=== PATIENT | female | born 1950 | race Caucasian/White ===

== ENCOUNTER → 2017-05-24 15:40 | Outpatient (CLI) | payer MEDICARE, SELFPAY ==
[2017-05-24 17:28] LABS: Absolute Lymphocyte Count 2.15 X10^3/ul (0.83-4.51); Absolute Neutrophil Count 1.6 X10^3/uL (2.0-7.7); Basophil# 0.04 X10^3/uL; Eosinophil# 0.07 X10^3/uL; Eosinophils% 1.7 % (0-5); Hematocrit 36.7 % (37-47); Hemoglobin 11.9 g/dl (12.0-15.0); Lymphocyte # 2.15 X10^3/ul (4.0); Lymphocyte % 51.2 % (19-41); Mean Corp Hgb Conc 32.4 g/gl (32-36); Mean Corpuscular Hgb 31.1 pg (27.0-32.0); Mean Corpuscular Volume 95.8 fL (81-99); Mean Platelet Vol. 10.3 fl (6.2-12.0); Monocyte# 0.37 X10^3/uL; Monocyte% 8.8 % (0-10); Neutrophil # 1.57 X10^3/uL (2.7-7.7); Neutrophil % 37.3 % (47-70); Platelet Count 279 K/mm3 (150-450); RBC Distribution Width CV 13.5 % (11.6-14.6); RBC Distribution Width SD 47.1 fl (35.1-43.9); Red Blood Count 3.83 M/mm3 (4.2-5.4); White Blood Count 4.2 K/mm3 (4.4-11.0)
[2017-05-24 17:44] LABS: POSITIVE COUNT NO; POSITIVE DIFFERENTIAL NO; POSITIVE MORPHOLOGY NO
[2017-05-24 18:11] LABS: ALB/GLOB Ratio 1.1 RATIO (0.9-2.4); AST(SGOT) 19 U/L (15-37); Alanine Aminotransfer ALT/SGPT 19 U/L (13-56); Albumin, Serum 3.5 g/dL (3.2-5.0); Alkaline Phosphatase 81 U/L (45-117); Anion Gap 9 (5-15); BUN 11 mg/dL (7-18); BUN/Creat Ratio 10.9 RATIO (10-20); Calcium,Total 8.1 mg/dL (8.5-10.1); Chloride 108 mmol/L (98-107); Creatinine, Serum 1.01 mg/dL (0.55-1.02); EST Glomerular Filtration Rate 58 mL/min (>60); Est Glom Filt Rate - Afr Amer 70 mL/min (>60); Globulin 3.2 g/dL (2.2-4.2); Glucose 87 mg/dL (74-106); Potassium 3.9 mmol/L (3.5-5.1); Protein, Total 6.7 g/dL (6.4-8.2); Sodium Level 140 mmol/L (136-145); Thyroid Stim Hormone (TSH) 0.77 uIU/mL (0.358-3.74)
[2017-05-26 11:12] LABS: Hep C Antibodies <0.1 s/co ratio (0.0-0.9)
== END ==
PROVIDERS: Family Provider Family Medicine Geriatric Medicine; PCP Family Medicine Geriatric Medicine; Visit Provider Family Medicine Geriatric Medicine
DX: Z13.89 Encounter for screening for other disorder (principal); E55.9 Vitamin D deficiency, unspecified; R53.83 Other fatigue
CPT/HCPCS: 36415; 80053; 84443; 85025; 86803

== ENCOUNTER 2017-07-12 17:24 | Emergency (ER) | payer MEDICARE, SELFPAY ==
[2017-07-12 17:26] VITALS: BP 163/83; PULSE 88; RESP 16; TEMP 36.4; O2SAT 99; BMI 44.9
--- NOTE | 2017-07-12 18:20 | ED.VISSUMM ---
- ER Visit Summary Date of Service: 07/12/17 Chief Complaint: Wound check History of Present Illness: The patient is a 67 F wound check left index finger. 2 days ago cat bite to left index, seen at urgent care started on Flagyl and doxycycline. Has been taking the medicines. States not getting better, also not getting worse. No fevers. States is her home cat. Also complains of her chronic back pain, previous surgery in the past, none recently. No recent falls. States her pain management Dr. Coburn last seen 3-4 months ago was not prescribing opiates. Saw her PCP were written for tramadol. No loss of bowel or bladder control. No other complaints. Physical Examination: General: Alert and oriented ?3, no acute distress HEENT: Normocephalic, atraumatic. Moist mucosa membranes Neck: supple, nontender. Cardiovascular: Regular rate and rhythm, no murmurs Respiratory: Normal breath sounds, symmetric, no distress back: Midline scar lumbar spine. No erythema. Abdomen: Soft, nontender, nondistended Extremities: Left hand: Index finger noted blister at the volar aspect distal phalanx. There is erythema of the distal phalanx up to the DIP. There is no redness proximal to this. There is no streaking. No drainage. Neuro: no focal neurological deficits. Test Results: [] Emergency Department Course and Treatment: Patient vital signs stable. Wound is not worsening there is no active draining. There is no streaking. Discussed with patient continue her current antibiotics. Wound was redressed by nursing. For chronic back pain, she given 1 morphine subcu dose in the ED. She does have a ride home. Discussed with patient she needs to follow-up with her PCP reevaluation further management of her pain as an outpatient. All questions were answered. Treatment Plan: [] Disposition: Discharge Impression: 1. Wound check 2. Chronic back pain This note was generated with [employer] dictation software. It may contain incorrect words, spelling, and punctuation that were not noted in review of the chart prior to signing ED Disposition - Plan for ED Patient: Disposition: Home or Assisted Living Chief Complaint: Wound Diagnosis: Encounter for evaluation of wound, Chronic back pain Instructions: ED Wound Puncture General, ED Chronic Pain Management Referrals: Harish Luis Chi, MD [Primary Care Provider] - 3-5 Days
--- NOTE | 2017-07-12 18:25 | ED.DCSUM_ITS ---
- ER Visit Summary Date of Service: 07/12/17 Chief Complaint: Wound check History of Present Illness: The patient is a 67 F wound check left index finger. 2 days ago cat bite to left index, seen at urgent care started on Flagyl and doxycycline. Has been taking the medicines. States not getting better, also not getting worse. No fevers. States is her home cat. Also complains of her chronic back pain, previous surgery in the past, none recently. No recent falls. States her pain management Dr. Coburn last seen 3- 4 months ago was not prescribing opiates. Saw her PCP were written for tramadol. No loss of bowel or bladder control. No other complaints. Physical Examination: General: Alert and oriented ?3, no acute distress HEENT: Normocephalic, atraumatic. Moist mucosa membranes Neck: supple, nontender. Cardiovascular: Regular rate and rhythm, no murmurs Respiratory: Normal breath sounds, symmetric, no distress back: Midline scar lumbar spine. No erythema. Abdomen: Soft, nontender, nondistended Extremities: Left hand: Index finger noted blister at the volar aspect distal phalanx. There is erythema of the distal phalanx up to the DIP. There is no redness proximal to this. There is no streaking. No drainage. Neuro: no focal neurological deficits. Test Results: [] Emergency Department Course and Treatment: Patient vital signs stable. Wound is not worsening there is no active draining. There is no streaking. Discussed with patient continue her current antibiotics. Wound was redressed by nursing. For chronic back pain, she given 1 morphine subcu dose in the ED. She does have a ride home. Discussed with patient she needs to follow-up with her PCP reevaluation further management of her pain as an outpatient. All questions were answered. Treatment Plan: [] Disposition: Discharge Impression: 1. Wound check 2. Chronic back pain This note was generated with [employer] dictation software. It may contain incorrect words, spelling, and punctuation that were not noted in review of the chart prior to signing ED Disposition - Plan for ED Patient: Disposition: Home or Assisted Living Chief Complaint: Wound Diagnosis: Encounter for evaluation of wound, Chronic back pain Instructions: ED Wound Puncture General, ED Chronic Pain Management Referrals: Harish Luis Chi, MD [Primary Care Provider] - 3-5 Days
[2017-07-12] MEDS: Morphine 4 MG/ML Syringe SC (18:37)
== END 2017-07-12 18:41 | disposition home or self-care (01) ==
PROVIDERS: Emergency Provider Emergency Medicine; Family Provider Family Medicine Geriatric Medicine; PCP Family Medicine Geriatric Medicine
DX: Z48.00 Encounter for change or removal of nonsurgical wound dressing (principal); M54.5 Low back pain; G89.29 Other chronic pain; E78.00 Pure hypercholesterolemia, unspecified; Z79.82 Long term (current) use of aspirin; Z79.899 Other long term (current) drug therapy; Z87.891 Personal history of nicotine dependence
CPT/HCPCS: 96372; 99283

== ENCOUNTER → 2017-07-17 18:17 | Outpatient (CLI) | payer MEDICARE, SELFPAY ==
[2017-07-17 19:48] LABS: M R Staph aureus DNA By PCR Negative (Negative); Probe Check PASS; Specimen Processing Control PASS; Staph aureus DNA By PCR NEGATIVE (Negative)
== END ==
PROVIDERS: Family Provider Family Medicine Geriatric Medicine; PCP Family Medicine Geriatric Medicine; Visit Provider Family Medicine Geriatric Medicine
DX: L03.113 Cellulitis of right upper limb (principal)
CPT/HCPCS: 87070; 87205; 87640

== ENCOUNTER → 2017-11-26 13:14 | Outpatient (CLI) | payer MEDICARE, SELFPAY ==
[2017-11-26 16:17] LABS: Absolute Lymphocyte Count 1.14 X10^3/ul (0.83-4.51); Absolute Neutrophil Count 2.4 X10^3/uL (2.0-7.7); Basophil# 0.04 X10^3/uL; Basophil% 0.9 % (0-1); Eosinophils% 2.3 % (0-5); Hematocrit 37.4 % (37-47); Hemoglobin 12.2 g/dl (12.0-15.0); Lymphocyte # 1.14 X10^3/ul (4.0); Lymphocyte % 26.4 % (19-41); Mean Corp Hgb Conc 32.6 g/gl (32-36); Mean Corpuscular Volume 95.2 fL (81-99); Mean Platelet Vol. 10.1 fl (6.2-12.0); Monocyte# 0.63 X10^3/uL; Monocyte% 14.6 % (0-10); Neutrophil % 55.6 % (47-70); Platelet Count 256 K/mm3 (150-450); RBC Distribution Width CV 13.2 % (11.6-14.6); RBC Distribution Width SD 44.3 fl (35.1-43.9); Red Blood Count 3.93 M/mm3 (4.2-5.4); White Blood Count 4.3 K/mm3 (4.4-11.0)
[2017-11-26 16:18] LABS: POSITIVE COUNT NO; POSITIVE DIFFERENTIAL NO; POSITIVE MORPHOLOGY NO
[2017-11-26 16:40] LABS: Vitamin D,25 Hydroxy 43.6 ng/mL (29.95-100.01)
[2017-11-26 17:03] LABS: AST(SGOT) 15 U/L (15-37); Alanine Aminotransfer ALT/SGPT 17 U/L (13-56); Albumin, Serum 3.4 g/dL (3.2-5.0); Alkaline Phosphatase 85 U/L (45-117); Anion Gap 9 (5-15); BUN 8 mg/dL (7-18); BUN/Creat Ratio 8.5 RATIO (10-20); Calcium,Total 8.6 mg/dL (8.5-10.1); Chloride 110 mmol/L (98-107); Creatinine, Serum 0.94 mg/dL (0.55-1.02); EST Glomerular Filtration Rate 63 mL/min (>60); Est Glom Filt Rate - Afr Amer 76 mL/min (>60); Globulin 3.3 g/dL (2.2-4.2); Glucose 115 mg/dL (74-106); Potassium 3.3 mmol/L (3.5-5.1); Protein, Total 6.7 g/dL (6.4-8.2); Sodium Level 144 mmol/L (136-145); Thyroid Stim Hormone (TSH) 0.52 uIU/mL (0.358-3.74)
== END ==
PROVIDERS: Family Provider Family Medicine Geriatric Medicine; PCP Family Medicine Geriatric Medicine; Visit Provider Family Medicine Geriatric Medicine
DX: E55.9 Vitamin D deficiency, unspecified (principal); R53.83 Other fatigue; R50.9 Fever, unspecified
CPT/HCPCS: 36415; 80053; 82306; 84443; 85025; 87633

== ENCOUNTER → 2017-12-17 14:08 | Outpatient (CLI) | payer MEDICARE, SELFPAY ==
[2017-12-17 17:47] LABS: Anion Gap 7 (5-15); BUN 15 mg/dL (7-18); BUN/Creat Ratio 13.4 RATIO (10-20); Calcium,Total 8.2 mg/dL (8.5-10.1); Chloride 105 mmol/L (98-107); Creatinine, Serum 1.12 mg/dL (0.55-1.02); EST Glomerular Filtration Rate 52 mL/min (>60); Est Glom Filt Rate - Afr Amer 62 mL/min (>60); Glucose 85 mg/dL (74-106); Potassium 3.7 mmol/L (3.5-5.1); Sodium Level 139 mmol/L (136-145)
== END ==
PROVIDERS: Family Provider Family Medicine Geriatric Medicine; PCP Family Medicine Geriatric Medicine; Visit Provider Family Medicine Geriatric Medicine
DX: E87.6 Hypokalemia (principal)
CPT/HCPCS: 36415; 80048

== ENCOUNTER → 2018-06-18 14:16 | Outpatient (CLI) | payer MEDICARE, SELFPAY ==
[2018-06-18 15:41] LABS: Absolute Lymphocyte Count 2.28 X10^3/ul (0.83-4.51); Absolute Neutrophil Count 3.4 X10^3/uL (2.0-7.7); Basophil# 0.05 X10^3/uL; Basophil% 0.8 % (0-1); Eosinophil# 0.08 X10^3/uL; Eosinophils% 1.3 % (0-5); Hematocrit 36.8 % (37-47); Hemoglobin 11.9 g/dl (12.0-15.0); Lymphocyte # 2.28 X10^3/ul (4.0); Lymphocyte % 36.7 % (19-41); Mean Corp Hgb Conc 32.3 g/gl (32-36); Mean Corpuscular Hgb 30.4 pg (27.0-32.0); Mean Corpuscular Volume 93.9 fL (81-99); Mean Platelet Vol. 9.5 fl (6.2-12.0); Monocyte# 0.46 X10^3/uL; Monocyte% 7.4 % (0-10); Neutrophil # 3.35 X10^3/uL (2.7-7.7); Neutrophil % 53.8 % (47-70); Platelet Count 394 K/mm3 (150-450); RBC Distribution Width CV 13.2 % (11.6-14.6); RBC Distribution Width SD 43.9 fl (35.1-43.9); Red Blood Count 3.92 M/mm3 (4.2-5.4); White Blood Count 6.2 K/mm3 (4.4-11.0)
[2018-06-18 15:43] LABS: POSITIVE COUNT NO; POSITIVE DIFFERENTIAL NO; POSITIVE MORPHOLOGY NO
[2018-06-18 15:58] LABS: Vitamin D,25 Hydroxy 63.8 ng/mL (29.95-100.01)
[2018-06-18 16:04] LABS: ALB/GLOB Ratio 0.9 RATIO (0.9-2.4); AST(SGOT) 23 U/L (15-37); Alanine Aminotransfer ALT/SGPT 19 U/L (13-56); Albumin, Serum 3.2 g/dL (3.2-5.0); Alkaline Phosphatase 83 U/L (45-117); Anion Gap 5 (5-15); BUN 11 mg/dL (7-18); BUN/Creat Ratio 9.5 RATIO (10-20); Calcium,Total 8.3 mg/dL (8.5-10.1); Chloride 108 mmol/L (98-107); Creatinine, Serum 1.16 mg/dL (0.55-1.02); EST Glomerular Filtration Rate 49 mL/min (>60); Est Glom Filt Rate - Afr Amer 60 mL/min (>60); Globulin 3.7 g/dL (2.2-4.2); Glucose 95 mg/dL (74-106); Potassium 3.6 mmol/L (3.5-5.1); Protein, Total 6.9 g/dL (6.4-8.2); Sodium Level 138 mmol/L (136-145); Thyroid Stim Hormone (TSH) 0.64 uIU/mL (0.358-3.74)
== END ==
PROVIDERS: Family Provider Family Medicine Geriatric Medicine; PCP Family Medicine Geriatric Medicine; Visit Provider Family Medicine Geriatric Medicine
DX: E55.9 Vitamin D deficiency, unspecified (principal); R53.83 Other fatigue
CPT/HCPCS: 36415; 80053; 82306; 84443; 85025

== ENCOUNTER 2018-09-01 18:45 | Emergency (ER) | payer MEDICARE, SELFPAY ==
[2018-07-31 11:09] VITALS: BMI 44.9
[2018-09-01 18:45] VITALS: BP 142/89; PULSE 79; RESP 16; TEMP 37.2; O2SAT 98; BMI 19.5
[2018-09-01 18:59] VITALS: RESP 16
--- NOTE | 2018-09-01 19:04 | ED.VISSUMM ---
- ER Visit Summary Date of Service: 09/01/18 Chief Complaint: Acute on chronic back pain History of Present Illness: The patient is a 68 F. Chronic back pain. Patient states she has back pain every day. Currently is on no pain medications. She is had 2 prior TENS units. Currently the one that she has is no longer working. She seen multiple pain management physicians. She had one prior back surgery and is followed up with brand specialist who tell her she may need another surgery may be a year recovery and she did not want to go through that. Today she had recurrent acute on chronic back pain. No falls. No injuries or trauma. No fever. No abdominal pain or dysuria. No acute injury. No radiation to her arms or legs no weakness or new numbness. Physical Examination: Older female accompanied by her . Vital signs are stable and afebrile. HEENT exam unremarkable. Lungs clear to auscultation. Heart regular rhythm no murmur. Abdomen soft and nontender. No peritoneal signs no pulsatile mass. Extremities moves all 4. Neurovascular intact. Equal symmetrical trial consultant strength. Dorsi plantarflexion intact. No cauda equina. No saddle anesthesia. Normal medial thigh sensation. Back exam she has a well-healed prior lumbar vertical incision. It is well-healed. There is currently no signs of redness or warmth. No trauma. She has tenderness over her lumbar spine. There is diffuse. Neurologically she is awake and alert. With no weakness or numbness. Test Results: None Emergency Department Course and Treatment: Patient has acute on chronic back pain. This is not new or particularly different she has had flares from time to time. She will be given IM injection of morphine and p.o. Zofran. Awaiting a very short prescription for 10 [place]. She can follow-up with her primary care physician. Treatment Plan: [facility] [place] for pain. Follow-up with her PCP. Disposition: Discharge Impression: Acute on chronic back pain status post lumbar surgery History of chronic back pain with degenerative disc disease and arthritis This note was generated with [employer] software. It may contain incorrect words, spelling, and punctuation that were not noted in review of the chart prior to signing ED Disposition - Plan for ED Patient: Referrals: Harish Luis Chi, MD [Primary Care Provider] -
--- NOTE | 2018-09-01 19:07 | ED.DCSUM_ITS ---
- ER Visit Summary Date of Service: 09/01/18 Chief Complaint: Acute on chronic back pain History of Present Illness: The patient is a 68 F. Chronic back pain. Patient states she has back pain every day. Currently is on no pain medications. She is had 2 prior TENS units. Currently the one that she has is no longer working. She seen multiple pain management physicians. She had one prior back surgery and is followed up with campaign management specialist who tell her she may need another surgery may be a year recovery and she did not want to go through that. Today she had recurrent acute on chronic back pain. No falls. No injuries or trauma. No fever. No abdominal pain or dysuria. No acute injury. No radiation to her arms or legs no weakness or new numbness. Physical Examination: Older female accompanied by her . Vital signs are stable and afebrile. HEENT exam unremarkable. Lungs clear to auscultation. Heart regular rhythm no murmur. Abdomen soft and nontender. No peritoneal signs no pulsatile mass. Extremities moves all 4. Neurovascular intact. 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 Dorsi plantarflexion intact. No cauda equina. No saddle anesthesia. Normal medial thigh sensation. Back exam she has a well- healed prior lumbar vertical incision. It is well-healed. There is currently no signs of redness or warmth. No trauma. She has tenderness over her lumbar spine. There is diffuse. Neurologically she is awake and alert. With no weakness or numbness. Test Results: None Emergency Department Course and Treatment: Patient has acute on chronic back pain. This is not new or particularly different she has had flares from time to time. She will be given IM injection of morphine and p.o. Zofran. Awaiting a very short prescription for 10 [place]. She can follow-up with her primary care physician. Treatment Plan: [place] for pain. Follow-up with her PCP. Disposition: Discharge Impression: Acute on chronic back pain status post lumbar surgery History of chronic back pain with degenerative disc disease and arthritis This note was generated with [employer] software. It may contain incorrect words, spelling, and punctuation that were not noted in review of the chart prior to signing ED Disposition - Plan for ED Patient: Referrals: Harish Luis Chi, MD [Primary Care Provider] -
--- NOTE | 2018-09-01 19:07 | ED.DEP ---
ED Disposition - Plan for ED Patient: Disposition: Against Medical Advice Instructions: ED Neck Back Pain General Prescriptions: Hydrocodone Bitart/Apap 5-325 [[place] 5MG-325MG] 1 - 2 tab PO Q4H PRN PRN 3 Days #10 tab PRN Reason: Pain Referrals: Harish Luis Chi, MD [Primary Care Provider] - As soon as possible Additional Instructions: [place] for pain. Follow-up with Dr. Luis or operations specialist.
--- NOTE | 2018-09-01 19:10 | DCINST.ED_ITS ---
ED Disposition - Plan for ED Patient: Disposition: Against Medical Advice Instructions: ED Neck Back Pain General Prescriptions: Hydrocodone Bitart/Apap 5-325 [[place] 5MG-325MG] 1 - 2 tab PO Q4H PRN PRN 3 Days #10 tab PRN Reason: Pain Referrals: Harish Luis Chi, MD [Primary Care Provider] - As soon as possible Additional Instructions: [place] for pain. Follow-up with Dr. Luis or leasing specialist.
[2018-09-01] MEDS: morphine 8 MG/ML Syringe IM (19:11)
[2018-09-01] MEDS: Ondansetron 8 MG Tablet PO (19:11)
[2018-09-01 19:22] VITALS: BP 129/87; PULSE 67; RESP 16; O2SAT 97
[2018-09-01] MEDS: HYDROcodone Bitartrate/Apap 5/325 Tablet PO (19:36)
== END 2018-09-01 19:37 | disposition home or self-care (01) ==
PROVIDERS: Emergency Provider Emergency Medicine; Family Provider Family Medicine Geriatric Medicine; PCP Family Medicine Geriatric Medicine
DX: M51.36 Other intervertebral disc degeneration, lumbar region (principal); G89.29 Other chronic pain; I10 Essential (primary) hypertension; Z79.82 Long term (current) use of aspirin; Z79.899 Other long term (current) drug therapy; Z72.0 Tobacco use
CPT/HCPCS: 96372; 99283

== ENCOUNTER → 2018-11-26 13:12 | Outpatient (CLI) | payer MEDICARE, SELFPAY ==
[2018-11-26 17:17] LABS: Absolute Lymphocyte Count 1.38 X10^3/uL (0.83-4.51); Absolute Neutrophil Count 1.5 X10^3/uL (2.0-7.7); Basophil# 0.04 X10^3/uL; Basophil% 1.2 % (0-1); Eosinophil# 0.05 X10^3/uL; Eosinophils% 1.5 % (0-5); Hemoglobin 12.2 g/dL (12.0-15.0); Lymphocyte # 1.38 X10^3/ul (4.0); Lymphocyte % 41.6 % (19-41); Mean Corpuscular Hgb 31.9 pg (27.0-32.0); Mean Corpuscular Volume 96.6 fL (81-99); Mean Platelet Vol. 10.3 fl (6.2-12.0); NRBC Flagged by Analyzer 0 % (0-5); Neutrophil # 1.54 X10^3/uL (2.7-7.7); Neutrophil % 46.4 % (47-70); Platelet Count 269 K/mm3 (150-450); RBC Distribution Width CV 13.2 % (11.6-14.6); RBC Distribution Width SD 46.8 fl (35.1-43.9); Red Blood Count 3.83 M/mm3 (4.2-5.4); White Blood Count 3.3 K/mm3 (4.4-11.0)
[2018-11-26 17:33] LABS: Vitamin D,25 Hydroxy 31.5 ng/mL (29.95-100.01)
[2018-11-26 17:36] LABS: ALB/GLOB Ratio 1.3 RATIO (0.9-2.4); AST(SGOT) 16 U/L (15-37); Alanine Aminotransfer ALT/SGPT 14 U/L (13-56); Albumin, Serum 3.5 g/dL (3.2-5.0); Alkaline Phosphatase 77 U/L (45-117); Anion Gap 6 (5-15); BUN 12 mg/dL (7-18); BUN/Creat Ratio 12.9 RATIO (10-20); Calcium,Total 8.2 mg/dL (8.5-10.1); Chloride 110 mmol/L (98-107); Creatinine, Serum 0.93 mg/dL (0.55-1.02); EST Glomerular Filtration Rate 64 mL/min (>60); Est Glom Filt Rate - Afr Amer 77 mL/min (>60); Globulin 2.7 g/dL (2.2-4.2); Glucose 121 mg/dL (74-106); Potassium 3.8 mmol/L (3.5-5.1); Protein, Total 6.2 g/dL (6.4-8.2); Sodium Level 145 mmol/L (136-145); Thyroid Stim Hormone (TSH) 0.78 uIU/mL (0.358-3.74)
== END ==
PROVIDERS: Family Provider Family Medicine Geriatric Medicine; PCP Family Medicine Geriatric Medicine; Visit Provider Family Medicine Geriatric Medicine
DX: E55.9 Vitamin D deficiency, unspecified (principal); R53.83 Other fatigue
CPT/HCPCS: 36415; 80053; 82306; 84443; 85025

== ENCOUNTER 2019-06-20 11:08 | Emergency (ER) | payer MEDICARE, SELFPAY ==
[2019-06-20 11:09] VITALS: BP 141/79; PULSE 71; RESP 16; TEMP 36.6; O2SAT 97; BMI 19.5
[2019-06-20] MEDS: morphine 8 MG/ML Syringe IM (12:16)
--- NOTE | 2019-06-20 12:31 | ED.DCSUM_ITS ---
- ER Visit Summary Date of Service: 06/20/19 Chief Complaint: Back pain History of Present Illness: The patient is a [address] Seo and Dr. Luis. She reports that she has had low back pain for 16 years. Got worse 3 weeks ago. She denies any trauma. No fall, MVA, or change in activity. She reports pain is an aching pain is 10-10 at worst and a 10 currently. Is worsened by movement relieved by remaining still. She reports that radiates down the back of her left leg to the level of her knee. She is had paresthesias intermittently in her left leg for 3 weeks. She denies any problems with her [place] or her bladder. No groin numbness. Patient denies any fever or chills. No abdominal pain. No dysuria or frequency. Physical Examination: Vitals: Stable. Afebrile. General: A&O x 3. NAD. Cardiovascular exam: Regular rate and rhythm, no murmur, rub or gallop. Respiratory exam: Clear to auscultation bilaterally. No wheezes or stridor. Abdominal exam: Soft, nontender, nondistended, normal bowel sounds. No peritoneal signs. Back: Well-healed midline incision. Diffuse moderate tenderness to palpation over the lumbar spine and the paraspinous musculature in the lumbar region. No point tenderness. Negative straight leg bilaterally. 5/5 DF, PF, EHL bilate rally. Normal sensation to light touch throughout. Extremity: No clubbing, cyanosis, or edema. Emergency Department Course and Treatment: Patient was given a dose of morphine IM. She is resting more comfortably. Treatment Plan: Patient was discussed with Dr. Seo. He asked that she be given a prescription for a week's worth of Percocet. He will follow-up in the office next week. The signs and symptoms of cauda equina syndrome were discussed. She is instructed return for these. Disposition: To home in improved and stable condition. Impression: 1. Acute on chronic back pain. This note was generated with [employer] software. It may contain incorrect words, spelling, and punctuation that were not noted in review of the chart prior to signing ED Disposition - Plan for ED Patient: Disposition: Home or Assisted Living Instructions: ED Back Pain Acute or Chronic Prescriptions: Oxycodone HCl/Acetaminophen [Percocet 5/325] 1 tab PO Q6H PRN PRN 7 Days #30 tab PRN Reason: Pain Score 6-10/10 Prescription Printed Referrals: Isabelle Seo MD [STAFF PHYSICIAN] - 1 Week
[2019-06-20 12:55] VITALS: RESP 18
== END 2019-06-20 12:55 | disposition home or self-care (01) ==
PROVIDERS: Emergency Provider Emergency Medicine; PCP Family Medicine Geriatric Medicine
DX: M54.5 Low back pain (principal); G89.29 Other chronic pain; F17.290 Nicotine dependence, other tobacco product, uncomplicated
CPT/HCPCS: 96372; 99282

== ENCOUNTER → 2019-06-23 14:21 | Outpatient (CLI) | payer MEDICARE, SELFPAY ==
[2019-06-20 11:09] VITALS: BMI 19.5
[2019-06-23 15:24] LABS: Absolute Lymphocyte Count 2.25 X10^3/uL (0.83-4.51); Absolute Neutrophil Count 2.8 X10^3/uL (2.0-7.7); Basophil# 0.05 X10^3/uL; Basophil% 0.9 % (0-1); Eosinophil# 0.04 X10^3/uL; Eosinophils% 0.7 % (0-5); Hematocrit 40.5 % (37-47); Hemoglobin 12.9 g/dL (12.0-15.0); Lymphocyte # 2.25 X10^3/ul (4.0); Lymphocyte % 40.1 % (19-41); Mean Corp Hgb Conc 31.9 g/dL (32-36); Mean Corpuscular Hgb 30.8 pg (27.0-32.0); Mean Corpuscular Volume 96.7 fL (81-99); Monocyte# 0.43 X10^3/uL; Monocyte% 7.7 % (0-10); NRBC Flagged by Analyzer 0 % (0-5); Neutrophil # 2.83 X10^3/uL (2.7-7.7); Neutrophil % 50.4 % (47-70); Platelet Count 280 K/mm3 (150-450); RBC Distribution Width CV 12.8 % (11.6-14.6); RBC Distribution Width SD 45.9 fl (35.1-43.9); Red Blood Count 4.19 M/mm3 (4.2-5.4); White Blood Count 5.6 K/mm3 (4.4-11.0)
[2019-06-23 15:37] LABS: Vitamin D,25 Hydroxy 20.1 ng/mL
[2019-06-23 15:48] LABS: ALB/GLOB Ratio 1.1 RATIO (0.9-2.4); AST(SGOT) 21 U/L (15-37); Alanine Aminotransfer ALT/SGPT 18 U/L (13-56); Albumin, Serum 3.6 g/dL (3.2-5.0); Alkaline Phosphatase 88 U/L (45-117); Anion Gap 4 (5-15); BUN 7 mg/dL (7-18); BUN/Creat Ratio 7.2 RATIO (10-20); Calcium,Total 8.8 mg/dL (8.5-10.1); Chloride 107 mmol/L (98-107); Creatinine, Serum 0.98 mg/dL (0.55-1.02); EST Glomerular Filtration Rate 60 mL/min (>60); Est Glom Filt Rate - Afr Amer 72 mL/min (>60); Globulin 3.2 g/dL (2.2-4.2); Glucose 79 mg/dL (74-106); Potassium 3.9 mmol/L (3.5-5.1); Protein, Total 6.8 g/dL (6.4-8.2); Sodium Level 138 mmol/L (136-145); Thyroid Stim Hormone (TSH) 1.05 uIU/mL (0.358-3.74)
== END ==
PROVIDERS: PCP Family Medicine Geriatric Medicine; Visit Provider Family Medicine Geriatric Medicine
DX: E55.9 Vitamin D deficiency, unspecified (principal); R53.83 Other fatigue
CPT/HCPCS: 36415; 80053; 82306; 84443; 85025

== ENCOUNTER 2019-07-08 21:22 | Emergency (ER) | payer MEDICARE, SELFPAY ==
[2019-07-08 21:23] VITALS: BP 153/82; PULSE 66; RESP 18; TEMP 36.9; O2SAT 94; BMI 20.3
[2019-07-08 21:33] VITALS: BP 160/83; PULSE 61; RESP 11; O2SAT 98
--- NOTE | 2019-07-08 21:40 | ED.RN ---
CALLED FOR EKG
--- NOTE | 2019-07-08 21:43 | EKG12_ITS ---
Test Reason : CP Blood Pressure : / mmHG Vent. Rate : 060 BPM Atrial Rate : 060 BPM P-R Int : 150 ms QRS Dur : 070 ms QT Int : 412 ms P-R-T Axes : 067 065 055 degrees QTc Int : 412 ms Normal sinus rhythm Normal ECG Confirmed by JODY GUIDO, NOEMY ([id number]), food editor CARLOS MANUEL HELLER ([id number]) on 07/14/2019 10:50:49 AM Referred By: JORGE Confirmed By:RICHAR VERA MD
--- NOTE | 2019-07-08 21:46 | ED.DCSUM_ITS ---
- ER Visit Summary Date of Service: 07/08/19 Chief Complaint: [Chest pain] History of Present Illness: The patient is a 69 F [resents to the emergency department complaint of chest pain that started an hour ago. Patient describes a pressure across her chest. Patient states the pain came on at rest. Initi ally the pain went through to her back. Patient felt somewhat nauseated and sweaty with it. She not had pain like that before. Patient has history of GERD, palpitations, depression, migraines, and chronic back pain history. Patient also complaining of a headache. She currently rates her chest pain is a 5 out of 10. Patient denies recent travel or surgery. Denies any fever or cough.] Physical Examination: [HEENT-PERRLA, EOMI. Cranial nerves II through XII grossly intact. TMs clear. Mucous membranes moist. No adenopathy. Cardiovascular-regular rate and rhythm without murmur or ectopy Lungs-clear to auscultation, chest wall stable without crepitus or subcu emphysema Abdomen-normoactive bowel sounds, soft, nontender, no rebound or rigidity, no peritoneal signs. Extremities-intact ?4, normal range of motion, normal pulses, atraumatic] Test Results: [EKG obtained arrival shows sinus rhythm with a ventricular rate of 60 bpm with no acute ST segment changes. CBC with differential is normal. Chemistries normal. Troponin less than 0.015. Chest x-ray showed nothing acute.] Emergency Department Course and Treatment: [She received aspirin on arrival. 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 Patient had an IV line established. Patient refused nitroglycerin because she already had a little bit of a headache and she did not want make it worse. Patient received 4 mg of morphine and 4 mg of Zofran and her chest pain mostly resolved. Patient states that her headache then worsened and states that last time she had a headache like this only Dilaudid made it better.] Treatment Plan: [I discussed results with patient and recommended admission for further work-up and evaluation of her chest pain. Patient is refusing and does not want to be admitted. She understands my concern that I cannot rule out cardiac etiology for her chest pain and she could risk a heart attack, , and/or disability. Patient states that she believes her symptoms are related to anxiety because she has a son that is living with her who is an alcoholic.] Disposition: [Discharged home AGAINST MEDICAL ADVICE]. Patient advised to follow-up with her primary care physician as soon as possible. She is advised to return if worsening pain, increasing shortness of breath, or condition should worsen anyway. Impression: [Chest pain-etiology uncertain Patient left AGAINST MEDICAL ADVICE] This note was generated with [employer] dictation software. It may contain incorrect words, spelling, and punctuation that were not noted in review of the chart prior to signing ED Disposition - Plan for ED Patient: Referrals: Harish Luis Chi, MD [Primary Care Provider] -
[2019-07-08] MEDS: Morphine 4 MG/ML Syringe IV (21:51)
[2019-07-08] MEDS: Aspirin 81 MG TAB.CHEW 324 MG PO (21:52)
[2019-07-08] MEDS: Ondansetron 4 MG/2 ML Vial IV (21:52)
[2019-07-08] MEDS: 0.9% Normal Saline 1,000 ML 150 ML IV (21:55)
--- NOTE | 2019-07-08 22:05 | RAD_ITS ---
STUDY: X-RAY CHEST REASON FOR EXAM: Female, 69 years old. Chest pain, radiates into back TECHNIQUE: Single AP portable view of the chest. COMPARISON: 03/10/2014. FINDINGS: The lungs are clear and expanded. There is no demonstrated pleural abnormality. Normal size heart. Normal mediastinum and renea. Normal visualized pulmonary arteries. Normal visualized aortic arch and descending thoracic aorta. Normal visualized thoracic spine. Normal visualized ribs, clavicles, and shoulders. Neurostimulator unit projected over the thoracic spine. There is no demonstrated abnormality of the visualized soft tissue structures of the upper abdomen. RAD/Chest 1 View (Portable) IMPRESSION: Normal x-ray examination of the chest. Electronically Signed: Heavenly Corado MD at 22:20 EDT Tel , Service support ,
[2019-07-08 22:17] LABS: Absolute Neutrophil Count 3.2 X10^3/uL (2.0-7.7); Basophil# 0.06 X10^3/uL; Basophil% 0.9 % (0-1); Eosinophil# 0.03 X10^3/uL; Eosinophils% 0.4 % (0-5); Hematocrit 38.3 % (37-47); Hemoglobin 12.8 g/dL (12.0-15.0); Lymphocyte % 43.5 % (19-41); Mean Corp Hgb Conc 33.4 g/dL (32-36); Mean Corpuscular Hgb 31.1 pg (27.0-32.0); Mean Platelet Vol. 9.5 fl (6.2-12.0); Monocyte# 0.58 X10^3/uL; Monocyte% 8.4 % (0-10); NRBC Flagged by Analyzer 0 % (0-5); Neutrophil # 3.22 X10^3/uL (2.7-7.7); Neutrophil % 46.7 % (47-70); Platelet Count 310 K/mm3 (150-450); RBC Distribution Width CV 12.4 % (11.6-14.6); RBC Distribution Width SD 42.6 fl (35.1-43.9); Red Blood Count 4.12 M/mm3 (4.2-5.4); White Blood Count 6.9 K/mm3 (4.4-11.0)
[2019-07-08 22:23] LABS: Anion Gap 5 (5-15); BUN 11 mg/dL (7-18); BUN/Creat Ratio 9.7 RATIO (10-20); Calcium,Total 8.8 mg/dL (8.5-10.1); Chloride 101 mmol/L (98-107); Creatinine, Serum 1.13 mg/dL (0.55-1.02); EST Glomerular Filtration Rate 51 mL/min (>60); Est Glom Filt Rate - Afr Amer 61 mL/min (>60); Estimated Creatinine Clearance 38.69 ml/min; Glucose 104 mg/dL (74-106); Potassium 3.4 mmol/L (3.5-5.1); Sodium Level 134 mmol/L (136-145)
--- NOTE | 2019-07-08 22:58 | ED.DEP ---
ED Disposition - Plan for ED Patient: Instructions: ED Chest Pain Atypical Unkn Cause Referrals: Harish Luis Chi, MD [Primary Care Provider] - As soon as possible
[2019-07-08 23:09] VITALS: BP 169/85; PULSE 58; RESP 16; O2SAT 94
== END 2019-07-08 23:16 | disposition home or self-care (01) ==
LOC: ED 21:58
PROVIDERS: Emergency Provider Emergency Medicine; PCP Family Medicine Geriatric Medicine
DX: R07.9 Chest pain, unspecified (principal); K21.9 Gastro-esophageal reflux disease without esophagitis; F32.9 Major depressive disorder, single episode, unspecified; F41.9 Anxiety disorder, unspecified; Z53.29 Procedure and treatment not carried out because of patient's decision for other reasons
CPT/HCPCS: 71045; 80048; 84484; 85025; 93005; 96361; 96374; 96375; 99284; J7030; A4216; J2405

== ENCOUNTER → 2019-07-10 13:48 | Outpatient (CLI) | payer MEDICARE, SELFPAY ==
[2019-07-08 21:23] VITALS: BMI 20.3
--- NOTE | 2019-07-10 13:51 | RAD_ITS ---
STUDY: X-RAY - THORACIC SPINE REASON FOR EXAM: Female, 69 years old. BACK PAIN TECHNIQUE: 3 view(s) of the thoracic spine were obtained. COMPARISON: None. FINDINGS: There is straightening of the normal thoracic kyphosis. There is no substantial scoliosis. There is demineralization of the thoracic spine. There is multilevel disc space narrowing of the thoracic spine. Electrodes from a TENS unit are seen at the T6-T7 level. The soft tissue structures are unremarkable. RAD/Thoracic Spine 3 Views IMPRESSION: Straightening of the normal thoracic kyphosis. Osteopenia and multilevel disc space narrowing. Electronically Signed: Rafael Sherwood, at 15:58 EDT , Service support ,
--- NOTE | 2019-07-10 13:51 | RAD_ITS ---
STUDY: X-RAY - LUMBAR SPINE REASON FOR EXAM: Female, 69 years old. BACK PAIN. PREV SURGERY TECHNIQUE: 3 view(s) of the lumbar spine were obtained. COMPARISON: None FINDINGS: There is straightening of the normal lumbar lordosis. There is a dextroscoliosis of the lumbar spine. There is a normal alignment of the vertebrae. There is multilevel endplate spondylosis of the lumbar vertebrae. There is multi-level degenerative disc disease with multi-level disc space narrowing. A TENS unit is seen overlying the left buttock with the tip of the electrodes at the T8 level. RAD/Lumbar Spine 2 or 3 Views IMPRESSION: Degenerative changes of the spine, as detailed above. Marked degree of dextroscoliosis. Electronically Signed: Rafael Sherwood, at 15:56 EDT , Service support ,
== END ==
PROVIDERS: PCP Family Medicine Geriatric Medicine; Referring Provider Anesthesiology Pain Medicine; Visit Provider Anesthesiology Pain Medicine
DX: M54.9 Dorsalgia, unspecified (principal)
CPT/HCPCS: 72072; 72100

== ENCOUNTER → 2019-12-29 13:28 | Outpatient (CLI) | payer MEDICARE, SELFPAY ==
[2019-12-29 16:06] LABS: Absolute Neutrophil Count 2.4 X10^3/uL (2.0-7.7); Basophil# 0.05 X10^3/uL; Basophil% 1.2 % (0-1); Eosinophil# 0.06 X10^3/uL; Eosinophils% 1.4 % (0-5); Hematocrit 39.8 % (37-47); Hemoglobin 12.5 g/dL (12.0-15.0); Lymphocyte % 32.3 % (19-41); Mean Corp Hgb Conc 31.4 g/dL (32-36); Mean Corpuscular Hgb 30.3 pg (27.0-32.0); Mean Corpuscular Volume 96.6 fL (81-99); Monocyte# 0.39 X10^3/uL; NRBC Flagged by Analyzer 0 % (0-5); Neutrophil # 2.43 X10^3/uL (2.7-7.7); Neutrophil % 56.1 % (47-70); Platelet Count 316 K/mm3 (150-450); RBC Distribution Width CV 12.9 % (11.6-14.6); RBC Distribution Width SD 45.8 fl (35.1-43.9); Red Blood Count 4.12 M/mm3 (4.2-5.4); White Blood Count 4.3 K/mm3 (4.4-11.0)
[2019-12-29 16:22] LABS: Vitamin D,25 Hydroxy 27.8 ng/mL
[2019-12-29 16:30] LABS: ALB/GLOB Ratio 0.9 RATIO (0.9-2.4); AST(SGOT) 20 U/L (15-37); Alanine Aminotransfer ALT/SGPT 23 U/L (13-56); Albumin, Serum 3.1 g/dL (3.2-5.0); Alkaline Phosphatase 101 U/L (45-117); Anion Gap 5 (5-15); BUN 6 mg/dL (7-18); BUN/Creat Ratio 6.3 RATIO (10-20); Calcium,Total 8.3 mg/dL (8.5-10.1); Chloride 107 mmol/L (98-107); Creatinine, Serum 0.96 mg/dL (0.55-1.02); EST Glomerular Filtration Rate 61 mL/min (>60); Est Glom Filt Rate - Afr Amer 74 mL/min (>60); Globulin 3.5 g/dL (2.2-4.2); Glucose 110 mg/dL (74-106); Potassium 3.9 mmol/L (3.5-5.1); Protein, Total 6.6 g/dL (6.4-8.2); Sodium Level 139 mmol/L (136-145)
== END ==
PROVIDERS: PCP Family Medicine Geriatric Medicine; Visit Provider Family Medicine Geriatric Medicine
DX: E55.9 Vitamin D deficiency, unspecified (principal); R53.83 Other fatigue
CPT/HCPCS: 36415; 80053; 82306; 84443; 85025

== ENCOUNTER → 2020-01-21 11:52 | Outpatient (CLI) | payer MEDICARE, SELFPAY ==
--- NOTE | 2020-01-21 12:15 | RAD_ITS ---
STUDY: X-RAY - ABDOMEN/PELVIS REASON FOR EXAM: Female, 69 years old. Abdominal pain, fecal impaction TECHNIQUE: Single AP view of the abdomen / pelvis. COMPARISON: Comparison is made with prior study dated 02/03/2015. FINDINGS: Normal visualized lung bases. There is a moderate amount of colonic fecal material. The visualized liver, spleen and kidneys are grossly normal in size and morphology. Electrodes from a pain pump are seen. There are diffuse degenerative changes of the visualized lumbar spine. Dextroscoliosis. RAD/Abd Inc Decub and/or Erect IMPRESSION: Nonspecific gas pattern. Electronically Signed: Rafael Sherwood, at 15:59 EST , Service support ,
== END ==
PROVIDERS: PCP Family Medicine Geriatric Medicine; Referring Provider Family Medicine Geriatric Medicine; Visit Provider Family Medicine Geriatric Medicine
DX: K56.41 Fecal impaction (principal)
CPT/HCPCS: 74019

== ENCOUNTER 2020-01-22 20:07 | Observation (INO) | payer MEDICARE, SELFPAY ==
[2020-01-22 20:08] VITALS: BP 142/85; PULSE 86; RESP 18; TEMP 36.3; O2SAT 97; BMI 21.2
[2020-01-22 20:11] VITALS: BP 142/85; PULSE 83; RESP 18; TEMP 36.3; O2SAT 97
--- NOTE | 2020-01-22 20:41 | CT_ITS ---
We are attempting to reach an attending provider to discuss findings. An addendum with communication details will be sent when the communication is complete. STUDY: CT ABDOMEN AND PELVIS WITH CONTRAST REASON FOR EXAM: Female, 69 years old. UPPER ABDOMEN PAIN AND NAUSEA X 3 DAYS -- HX:GERD,HLD,CHRONIC BACK PAIN WITH STIMULATOR AND SURGERY X 2 RADIATION DOSAGE (If Supplied By Facility): CTDIvol = ( 11.38 ) mGy, DLP = ( 481.76 ) mGycm TECHNIQUE: Transaxial images were obtained from the dome of the diaphragm to the symphysis pubis without oral contrast. Oral and amp; IV Gastrografin and amp; 100mL Isovue-370 was administered. Sagittal and coronal images were reconstructed. Individualized dose optimization techniques were used for this CT. COMPARISON: 12/14/2011. FINDINGS: The visualized lung bases are unremarkable. The visualized portions of the heart are within normal limits. Normal liver. Normal gallbladder and extrahepatic biliary system. Normal spleen. Normal pancreas. Normal bilateral adrenal glands. Normal right kidney. Normal left kidney. Evaluation of the GI tract is limited because although a very small amount of oral contrast was given, only a few loops of small bowel are adequately opacified. Essentially no opacification of the large bowel and most of the distal small bowel. Nondistended stomach. Cannot exclude stomach wall thickening. No dilated loops of bowel or evidence for obstruction. Moderate diffuse distention of large bowel with fecal material. Evidence for pneumatosis of the cecum, right colon, and transverse colon Tiny foci of extraluminal air seen primarily in the left paracolic gutter and under the left hemidiaphragm. These findings could all be related to bowel ischemia or even bowel necrosis. Correlate with lactic acid levels. There is diffuse atherosclerotic calcification of the abdominal aorta with elongation and tortuosity, but without a demonstrated aneurysm. Normal inferior vena cava. Normal retroperitoneum. Normal urinary bladder. There is atrophy of the uterus. Normal abdominal wall. There are diffuse degenerative changes of the visualized lumbar spine. Prominent dextroconvex scoliosis. CT/Abdomen/Pelvis WITH Contrast IMPRESSION: Abnormal appearance of the large bowel where there is pneumatosis, and there are scattered tiny foci of extraluminal air primarily in the left abdomen. Findings are consistent with bowel ischemia/necrosis. Electronically Signed: Neymar Hines MD at 23:23 EST , Service support ,
--- NOTE | 2020-01-22 20:43 | ED.VISSUMM ---
- ER Visit Summary Date of Service: 01/22/20 Chief Complaint: Abdominal pain and headache History of Present Illness: The patient is a 69 F who presents with abdominal pain and a headache that is been getting worse over the past 3 days. Patient describes as a squeezing pain. Patient states it is over her upper abdomen, lower chest, and her head. Patient admits to nausea but denies any vomiting. Patient denies any diarrhea, melena, or hematochezia. Patient denies any dysuria or hematuria. Patient states she has a history of chronic back pain and sees Dr. Seo for that. Physical Examination: Vital signs are stable. Patient is afebrile. Patient is in no acute distress. Oral mucosa is pink and moist. Neck is supple. Trachea is midline. There is no JVD. Heart was regular rate and rhythm. Lungs are clear and equal bilaterally. Abdomen is soft. Bowel sounds are normal. There is mild diffuse tenderness. There is no rebound or guarding noted. Cranial nerves II through XII are intact. There are no focal motor or sensory deficits. Test Results: CBC and comprehensive metabolic profile were obtained were within normal limits. Urinalysis does not show any evidence of urinary tract infection. EKG shows a normal sinus rhythm with a rate of 61. There are no acute ST or T wave changes. Troponin was normal. CT scan of the abdomen pelvis was obtained. There is diffuse distention of the large bowel. There is evidence of pneumatosis of the cecum right colon and transverse colon. There is some extraluminal air in the left paracolic gutter and under the left diaphragm. These findings are consistent with bowel ischemia/necrosis. These were interpreted by the radiologist and reviewed by myself. Emergency Department Course and Treatment: Patient was given IV fluids. Patient was given Reglan and Benadryl for her headache. Patient was given Cipro and Flagyl. Patient was advised of her findings. Case was discussed with Dr. Mccann. She will be in to evaluate the patient. Disposition: Admit to hospital Impression: 1. Ischemic bowel This note was generated with [employer] software. It may contain incorrect words, spelling, and punctuation that were not noted in review of the chart prior to signing ED Disposition - Plan for ED Patient: Disposition: Acute Care Hospital [facility] Diagnosis: Ischemic bowel disease Referrals: Harish Luis Chi, MD [Primary Care Provider] -
--- NOTE | 2020-01-22 20:45 | EKG12_ITS ---
Test Reason : DYSRHYTHMIA Blood Pressure : / mmHG Vent. Rate : 061 BPM Atrial Rate : 061 BPM P-R Int : 142 ms QRS Dur : 070 ms QT Int : 410 ms P-R-T Axes : 068 071 067 degrees QTc Int : 412 ms Normal sinus rhythm Normal ECG Confirmed by NELSON GUIDO, SHAMIKA ([id number]), deputy editor in chief ALANA SANCHEZ ([id number]) on 01/26/2020 2:32:01 PM Referred By: JODEE Confirmed By:SHAMIKA DAMON MD
[2020-01-22 21:00] LABS: Absolute Lymphocyte Count 1.92 X10^3/uL (0.83-4.51); Absolute Neutrophil Count 2.6 X10^3/uL (2.0-7.7); Basophil# 0.04 X10^3/uL; Basophil% 0.8 % (0-1); Eosinophil# 0.15 X10^3/uL; Eosinophils% 2.8 % (0-5); Hematocrit 42.8 % (37-47); Hemoglobin 13.6 g/dL (12.0-15.0); Lymphocyte # 1.92 X10^3/ul (4.0); Lymphocyte % 36.1 % (19-41); Mean Corp Hgb Conc 31.8 g/dL (32-36); Mean Corpuscular Hgb 30.6 pg (27.0-32.0); Mean Corpuscular Volume 96.2 fL (81-99); Mean Platelet Vol. 9.6 fl (6.2-12.0); Monocyte% 11.3 % (0-10); NRBC Flagged by Analyzer 0 % (0-5); Neutrophil % 48.8 % (47-70); Platelet Count 348 K/mm3 (150-450); RBC Distribution Width CV 13.3 % (11.6-14.6); RBC Distribution Width SD 47.3 fl (35.1-43.9); Red Blood Count 4.45 M/mm3 (4.2-5.4); White Blood Count 5.3 K/mm3 (4.4-11.0)
[2020-01-22] MEDS: Metoclopramide 10 MG/2 ML Vial IV (21:01)
[2020-01-22] MEDS: DiphenhydrAMINE 50 MG/ML Syringe 25 MG IV (21:01)
[2020-01-22] MEDS: 0.9% Normal Saline 1,000 ML 1000 ML IV (21:01)
[2020-01-22 21:16] LABS: ALB/GLOB Ratio 0.9 RATIO (0.9-2.4); AST(SGOT) 14 U/L (15-37); Alanine Aminotransfer ALT/SGPT 19 U/L (13-56); Albumin, Serum 3.4 g/dL (3.2-5.0); Alkaline Phosphatase 104 U/L (45-117); Anion Gap 6 (5-15); BUN 8 mg/dL (7-18); BUN/Creat Ratio 8.8 RATIO (10-20); Chloride 108 mmol/L (98-107); Creatinine, Serum 0.91 mg/dL (0.55-1.02); EST Glomerular Filtration Rate 65 mL/min (>60); Est Glom Filt Rate - Afr Amer 79 mL/min (>60); Estimated Creatinine Clearance 48.27 ml/min; Globulin 3.8 g/dL (2.2-4.2); Glucose 115 mg/dL (74-106); Lipase 146 U/L (73-393); Potassium 3.5 mmol/L (3.5-5.1); Protein, Total 7.2 g/dL (6.4-8.2); Sodium Level 140 mmol/L (136-145)
[2020-01-22 22:50] LABS: Bacteria 0 SEEN /hpf (None Seen); Mucous, Urine 0 SEEN /hpf (<or=2+); Red Blood Cells-Urine 0 SEEN /hpf (0-5); Squamous Epithelial Cells - UA 0 SEEN /hpf (5-10)
[2020-01-22 22:52] LABS: Color, Urine Yellow (Yellow); Glucose, Dipstick Normal (Normal); Ketone-Dipstick Negative (Negative); Leukocyte Esterase-Dipstick 100 /ul (Negative); Nitrite-Dipstick Negative (Negative); Occult Blood-Urine Negative /ul (Negative); Protein-Dipstick Negative (Negative); Specific Gravity, Urine 1.015 (1.002-1.030); Urine Bilirubin Dipstick Negative (Negative); Urine Clarity Sl. Cloudy (Clear); Urine Urobilinogen 1 mg/dl (Normal)
[2020-01-22 22:57] LABS: White Blood Cells 0-5 SEEN /hpf (0-5)
[2020-01-22 23:07] VITALS: BP 137/94; PULSE 58; RESP 16; O2SAT 99
[2020-01-22] MEDS: metroNIDAZOLE 500 MG/100 ML BAG 100 MG IV (23:57)
[2020-01-23 00:28] LABS: Lactic Acid 0.3 mmol/L (0.4-1.9)
[2020-01-23 00:29] VITALS: BP 149/91; PULSE 80; RESP 16; O2SAT 97
--- NOTE | 2020-01-23 00:57 | CT_ITS ---
STUDY: CT ABDOMEN AND PELVIS WITHOUT CONTRAST REASON FOR EXAM: Female, 69 years old. ABDOMEN PAIN F/U CT SCAN WITH MORE ORAL CONTRAST RADIATION DOSAGE (If Supplied By Facility): CTDIvol = ( 6.42 ) mGy, DLP = ( 296.86 ) mGycm TECHNIQUE: Transaxial images were obtained from the dome of the diaphragm to the symphysis pubis without oral contrast, and without intravenous contrast. Sagittal and coronal images were reconstructed. Individualized dose optimization techniques were used for this CT. COMPARISON: 01/22/2020 FINDINGS: Pneumatosis of the RIGHT colon with adjacent extraluminal air again identified suspicious for ischemic bowel injury. There is NO obstruction. The stomach and small bowel are within normal limits. The appendix is normal. Liver, pancreas and spleen are unremarkable. There are gallstones. Kidneys are unremarkable. There is calcified plaque in the abdominal aorta and branches. Urinary bladder is distended with contrast. Uterus is intact. There is NO hemoperitoneum or ascites. There is NO abscess. CT/Abdomen/Pel W ORAL Cont Only IMPRESSION: Pneumatosis of the RIGHT colon with adjacent extraluminal air again identified suspicious for ischemic bowel injury. There is NO obstruction. There is calcified plaque in the abdominal aorta and branches. There is NO hemoperitoneum or ascites. There is NO abscess. Electronically Signed: Ashish Nickerson MD at 3:46 EST , Service support ,
--- NOTE | 2020-01-23 00:58 | PCM.HP.STD ---
History of Present Illness Date of Admission: 01/23/20 The patient is a 69 year old F presented to the ER due to abdominal pain as well as headache that started yesterday. Patient rates abdominal pain on 11/26 yesterday and and 10/26 today. Patient had a bowel movement yesterday morning which was normal formed but black. Patient has been taking Pepto-Bismol. Patient states Pepto-Bismol did help her pain. Patient has been having flatus. Denies any history of a colonoscopy. Patient points to a band across her lower abdomen from the pain. She has not received any pain meds in the ER. CT abdomen pelvis with IV and p.o. contrast was done however patient did spill some of the p.o. contrast. Report called some pneumatosis of the right colon transverse colon and small moderate free air in the left pericolic gutter, only a small amount of p.o. contrast is seen in the mid small bowel. Past medical history patient does have chronic back pain and does have a neurostimulator which is currently not functional as it did not help her pain per the patient. Patient is able to sit up on her own as well as turn over in bed without hearing to be in much discomfort. Patient white blood count is normal with no shift, lactic acid is also normal. Patient did see her PCP yesterday and had a KUB done which she did not hear response from and since the pain did not get better she came to the ER. Patient also states she has not eaten the last 2 days states she had some oatmeal and states it did not taste right but otherwise did not cause any additional pain. Patient denies any cough or shortness of breath. Pt is currently getting cipro/flagyl after CT report came back with possible ischemic colitis. Past Medical History Past Medical History (Chronic Problems): Chronic Problems (Last Reviewed 07/31/18 @ 11:06 by Ewa Raygoza) Scoliosis of lumbar spine (Chronic) Palpitations (Chronic) GERD (Chronic) Chronic lower back pain (Chronic) Has electrical stimulator Migraine (Chronic) Depression (Chronic) Medical History: Medical History (Last Reviewed 07/31/18 @ 11:06 by Ewa Raygoza) Carpal tunnel syndrome on both sides G56.03 Allergies Penicillins Adverse Reaction (Verified 07/08/19 21:27) Rash Home Medications: Ambulatory Orders Medication Instructions Recorded Omeprazole 40 mg PO DAILY 08/11/13 Clonazepam 1 mg PO TID PRN PRN 03/11/14 Gabapentin [Neurontin] 400 mg PO 4X/DAY 01/21/15 Trazodone HCl [Oleptro ER] 300 mg PO QHS 01/21/15 busPIRone [Buspar] 10 mg PO BID PRN PRN 06/20/19 Hydrocodone/Acetaminophen [[place] 1 ea PO TID 01/22/20 5-325 Tablet] Surgical History: Surgical History (Last Reviewed 07/31/18 @ 11:06 by Ewa Raygoza) History of lumbar laminectomy Z98.890 Surgical History: - - Back surgery, Psychiatric History: Anxiety, Depression, Prior suicide attempt Smoking Status: Former smoker - *Family History Maternal Family History: Family History (Last Reviewed 07/31/18 @ 11:06 by Ewa Raygoza) Other CVA (cerebral vascular accident) Cancer Hypertension History Items: No pertinent history Review of Systems Constitutional: Reports: Anorexia Eyes: Denies: Blurred vision HEENT: Denies: Difficulty Swallowing Cardiovascular: Denies: Chest Pain Respiratory: Denies: Shortness of breath at rest Gastrointestinal: Reports: Abdominal Pain. Denies: Constipation, Diarrhea, Nausea Genitourinary: Denies: Dysuria Skin: Denies: Jaundice Neurological: Denies: Balance problems Psychiatric: Reports: Anxiety Hematologic/ Lymphatic: Denies: Anemia VTE Information - Inpt Only VTE Present on Admission: Yes VTE Mechan Device Prophylaxis: SCD's Patient Problems: Active and Suspected Problems (Last Reviewed 07/31/18 @ 11:06 by Ewa Raygoza) Ischemic bowel disease (Acute) - Physical Exam Vitals/I&O's: Vital Signs Temp Pulse Resp BP Pulse Ox 97.3 F L 80 16 149/91 H 97 01/22/20 20:11 01/23/20 00:29 01/23/20 00:29 01/23/20 00:29 01/23/20 00:29 Oxygen Delivery Method Room Air Weight: 120 lb 3.842 oz Body Mass Index (BMI) 21.2 Intake and Output for Last 24 Hours 01/21/20 01/22/20 01/23/20 23:59 23:59 23:59 Intake Total 1000 / 1000 Balance 1000 / 1000 General: Alert, Oriented x3, Cooperative, No apparent distress Lungs: Normal air movement Cardiovascular: Regular rate Abdomen: Soft, Distended - Mild, Tender - In the lower abdomen equivocal rebound, no guarding, nontender in the upper abdomen., - - MELA no external hemorrhoids no masses on exam no impacted stool on exam small amount of black stool on finger. Likely from Pepto-Bismol Extremities: No clubbing, No cyanosis, No edema Neurological: Cranial nerves II-XII grossly intact Laboratory Results 01/22/20 20:24: WBC 5.3, RBC 4.45, Hgb 13.6, Hct 42.8, MCV 96.2, MCH 30.6, MCHC 31.8 L, RDW Std Deviation 47.3 H, RDW Coeff of Mehnza 13.3, Plt Count 348, MPV 9.6, Immature Gran % (Auto) 0.200, Neut % (Auto) 48.8, Lymph % (Auto) 36.1, [place] % (Auto) 11.3 H, Eos % (Auto) 2.8, Baso % (Auto) 0.8, Absolute Neuts (auto) 2.6, Absolute Lymphs (auto) 1.92, Nucleated RBC % 0 01/22/20 20:24: Sodium 140, Potassium 3.5, Chloride 108 H, Carbon Dioxide 26.0, Anion Gap 6, BUN 8, Creatinine 0.91, Estim Creat Clear Calc 48.27, Est GFR (MDRD) Af Amer 79, Est GFR (MDRD) Non-Af 65, BUN/Creatinine Ratio 8.8 L, Glucose 115 H, Calcium 9.0, Total Bilirubin 0.50, AST 14 L, ALT 19, Alkaline Phosphatase 104, Troponin I < 0.015, Total Protein 7.2, Albumin 3.4, Globulin 3.8, Albumin/Globulin Ratio 0.9, Lipase 146 01/22/20 22:35: Urine Color Yellow, Urine Clarity Sl. Cloudy, Urine pH 6.0, Ur Specific [place] 1.015, Urine Protein Negative, Urine Glucose (UA) Normal, Urine Ketones Negative, Urine Occult Blood Negative, Urine Nitrite Negative, Urine Bilirubin Negative, Urine Urobilinogen 1 H, Ur Leukocyte Esterase 100 H, Urine RBC 0 SEEN, Urine WBC 0-5 SEEN, Ur Squamous Epith Cells 0 SEEN, Urine Bacteria 0 SEEN, Urine Mucus 0 SEEN 01/22/20 23:45: Lactic Acid 0.3 L Current Medications Iopamidol (Contrast Allergy Safety Check) 0 ml IV X1 JEANNIE Assessment/Plan All Active Problems (Last Reviewed 07/31/18 @ 11:06 by Ewa Raygoza) Ischemic bowel disease (Acute) Segmental and somatic dysfunction of pelvic region (Acute) Segmental dysfunction of thoracic region (Acute) Segmental and somatic dysfunction of lumbar region (Acute) Scoliosis (Acute) 69-year-old female with abdominal pain questionable ischemic bowel versus pseudopneumatosis on CAT scan. We will have patient repeat CT with p.o. contrast and give a little extra time to see if this can get into the colon to give us a better picture. Patient clinically does not fit the picture of ischemic bowel/pneumatosis as she does not have any rebound or guarding, white blood count is normal, lactic acid is normal patient is able to move around in the bed without much discomfort but rates her pain in 8/10. Will await repeat CAT scan. Addendum: pt repeat CT scan report still called pneumotosis and small amount of pneumoperitoneum on the right, will admit pt and observe. Per ER pt currently has no abd pain and has not gotten any pain meds. Nallely Mccann M.D. Pager: [phone] [facility] [address] [place] [address], Outpatient [place], [address] [place] [address] Office: [phone] Inpatient E&M: [id number] Init Hosp L2
[2020-01-23] MEDS: DiphenhydrAMINE 50 MG/ML Syringe 25 MG IV (01:20)
[2020-01-23] MEDS: Ciprofloxacin 400 MG/200 ML BAG 200 MG IV (01:21)
[2020-01-23] MEDS: proCHLORPERazine 10 MG/2 ML Vial 5 MG IV (01:22)
[2020-01-23 04:16] VITALS: BP 146/70; PULSE 78; RESP 16; TEMP 36.6; O2SAT 95
[2020-01-23 05:30] VITALS: BMI 21.5
[2020-01-23 06:54] LABS: Absolute Lymphocyte Count 1.32 X10^3/uL (0.83-4.51); Absolute Neutrophil Count 3.1 X10^3/uL (2.0-7.7); Basophil# 0.04 X10^3/uL; Basophil% 0.8 % (0-1); Eosinophil# 0.13 X10^3/uL; Eosinophils% 2.6 % (0-5); Hematocrit 37.8 % (37-47); Lymphocyte # 1.32 X10^3/ul (4.0); Lymphocyte % 26.3 % (19-41); Mean Corp Hgb Conc 31.7 g/dL (32-36); Mean Corpuscular Hgb 30.9 pg (27.0-32.0); Mean Corpuscular Volume 97.4 fL (81-99); Mean Platelet Vol. 9.4 fl (6.2-12.0); Monocyte# 0.44 X10^3/uL; Monocyte% 8.8 % (0-10); NRBC Flagged by Analyzer 0 % (0-5); Neutrophil # 3.08 X10^3/uL (2.7-7.7); Neutrophil % 61.3 % (47-70); Platelet Count 267 K/mm3 (150-450); RBC Distribution Width CV 13.3 % (11.6-14.6); RBC Distribution Width SD 47.4 fl (35.1-43.9); Red Blood Count 3.88 M/mm3 (4.2-5.4)
[2020-01-23 06:57] VITALS: BP 148/74; PULSE 56; RESP 18; TEMP 36.4; O2SAT 98
[2020-01-23] MEDS: Lactated Ringers 1,000 ML 100 ML IV (06:58)
[2020-01-23 07:03] VITALS: BMI 21.6
[2020-01-23 07:26] LABS: Anion Gap 4 (5-15); BUN 6 mg/dL (7-18); BUN/Creat Ratio 8.9 RATIO (10-20); Calcium,Total 8.3 mg/dL (8.5-10.1); Chloride 112 mmol/L (98-107); Creatinine, Serum 0.68 mg/dL (0.55-1.02); EST Glomerular Filtration Rate 92 mL/min (>60); Est Glom Filt Rate - Afr Amer 111 mL/min (>60); Estimated Creatinine Clearance 43.92 ml/min; Glucose 95 mg/dL (74-106); Potassium 3.7 mmol/L (3.5-5.1); Sodium Level 142 mmol/L (136-145)
[2020-01-23 07:54] VITALS: BP 134/89; PULSE 60; RESP 14; TEMP 37; O2SAT 100
--- NOTE | 2020-01-23 08:38 | PCM.PN.SRG ---
Patient Problems: Active and Suspected Problems (Last Reviewed 07/31/18 @ 11:06 by Ewa Raygoza) Ischemic bowel disease (Acute) Subjective: Patient currently denies any abdominal pain, feels hungry still only having flatus has not had bowel movement while she has been here. - Physical Exam Vitals/I&O's: Vital Signs Temp Pulse Resp BP Pulse Ox 98.6 F 60 14 134/89 H 100 01/23/20 07:54 01/23/20 07:54 01/23/20 07:54 01/23/20 07:54 01/23/20 07:54 Oxygen Delivery Method Room Air Weight: 121 lb 11.123 oz Body Mass Index (BMI) 21.5 Intake and Output for Last 24 Hours 01/21/20 01/22/20 01/23/20 23:59 23:59 23:59 Intake Total 1000 / 1000 410 / 410 Balance 1000 / 1000 410 / 410 General: Alert, Oriented x3, Cooperative, No apparent distress HEENT: Atraumatic Lungs: Normal air movement Cardiovascular: Regular rate Abdomen: Soft, Non Tender, Non-Distended Extremities: No clubbing, No cyanosis, No edema Neurological: Cranial nerves II-XII grossly intact Microbiology Past 72 Hours 01/23/20 00:47 Mucosa - Nose - Final Laboratory Results 01/22/20 20:24: WBC 5.3, RBC 4.45, Hgb 13.6, Hct 42.8, MCV 96.2, MCH 30.6, MCHC 31.8 L, RDW Std Deviation 47.3 H, RDW Coeff of Mehnaz 13.3, Plt Count 348, MPV 9.6, Immature Gran % (Auto) 0.200, Neut % (Auto) 48.8, Lymph % (Auto) 36.1, [place] % (Auto) 11.3 H, Eos % (Auto) 2.8, Baso % (Auto) 0.8, Absolute Neuts (auto) 2.6, Absolute Lymphs (auto) 1.92, Nucleated RBC % 0 01/22/20 20:24: Sodium 140, Potassium 3.5, Chloride 108 H, Carbon Dioxide 26.0, Anion Gap 6, BUN 8, Creatinine 0.91, Estim Creat Clear Calc 48.27, Est GFR (MDRD) Af Amer 79, Est GFR (MDRD) Non-Af 65, BUN/Creatinine Ratio 8.8 L, Glucose 115 H, Calcium 9.0, Total Bilirubin 0.50, AST 14 L, ALT 19, Alkaline Phosphatase 104, Troponin I < 0.015, Total Protein 7.2, Albumin 3.4, Globulin 3.8, Albumin/Globulin Ratio 0.9, Lipase 146 01/22/20 22:35: Urine Color Yellow, Urine Clarity Sl. Cloudy, Urine pH 6.0, Ur Specific [place] 1.015, Urine Protein Negative, Urine Glucose (UA) Normal, Urine Ketones Negative, Urine Occult Blood Negative, Urine Nitrite Negative, Urine Bilirubin Negative, Urine Urobilinogen 1 H, Ur Leukocyte Esterase 100 H, Urine RBC 0 SEEN, Urine WBC 0-5 SEEN, Ur Squamous Epith Cells 0 SEEN, Urine Bacteria 0 SEEN, Urine Mucus 0 SEEN 01/22/20 23:45: Lactic Acid 0.3 L 01/23/20 06:40: WBC 5.0, RBC 3.88 L, Hgb 12.0, Hct 37.8, MCV 97.4, MCH 30.9, MCHC 31.7 L, RDW Std Deviation 47.4 H, RDW Coeff of Mehnaz 13.3, Plt Count 267, MPV 9.4, Immature Gran % (Auto) 0.200, Neut % (Auto) 61.3, Lymph % (Auto) 26.3, [place] % (Auto) 8.8, Eos % (Auto) 2.6, Baso % (Auto) 0.8, Absolute Neuts (auto) 3.1, Absolute Lymphs (auto) 1.32, Nucleated RBC % 0 01/23/20 06:40: Sodium 142, Potassium 3.7, Chloride 112 H, Carbon Dioxide 26.0, Anion Gap 4 L, BUN 6 L, Creatinine 0.68, Estim Creat Clear Calc 43.92, Est GFR (MDRD) Af Amer 111, Est GFR (MDRD) Non-Af 92, BUN/Creatinine Ratio 8.9 L, Glucose 95, Calcium 8.3 L Current Medications Acetaminophen (Acetaminophen 325 Mg Tablet) 650 mg PO Q6H PRN PRN PRN Reason: Pain Score 1-10 Buspirone HCl (Buspirone 5 Mg Tablet) 10 mg PO BID PRN PRN PRN Reason: MILD ANXIETY Clonazepam (Clonazepam 1 Mg Tablet) 1 mg PO TID PRN PRN PRN Reason: SEVERE ANXIETY Gabapentin (Gabapentin 300 Mg Capsule) 300 mg PO TID JEANNIE Pantoprazole Sodium 40 mg/ (Sodium Chloride) 110 mls @ 330 mls/hr IV Q24 JEANNIE Last Infusion: 01/23/20 07:18 Dose: Infused Documented by: Lactated Ringer's () 1,000 mls @ 100 mls/hr IV .Q10H JEANNIE Last Infusion: 01/23/20 07:18 Dose: 100 mls/hr Documented by: Sodium Chloride (0.9% Saline Lock 10 Ml Syringe) 10 - 40 ml IV UD PRN PRN Reason: SALINE FLUSH Medical Necessity - Tobacco Use Smoking Status: Former smoker Tobacco Use: Non-smoker Assessment/Plan All Active Problems (Last Reviewed 07/31/18 @ 11:06 by Ewa Raygoza) Ischemic bowel disease (Acute) Segmental and somatic dysfunction of pelvic region (Acute) Segmental dysfunction of thoracic region (Acute) Segmental and somatic dysfunction of lumbar region (Acute) Scoliosis (Acute) 69-year-old female with abdominal pain questionable ischemic bowel versus pseudopneumatosis on CAT scan. Clinically patient has no abdominal pain has not received any pain meds is having flatus contrast was seen on the second CAT scan throughout the colon. We will have the patient start on clear liquid diet if she tolerates okay to advance to regular again if she tolerates okay to DC home. Plan to have patient follow-up in office in 2 weeks after discharge and plan for outpatient colonoscopy. Nallely Mccann M.D. Pager: [phone] [facility] [address] [place] [address], [facility], [address] [place] [address] Office: [phone]
[2020-01-23] MEDS: clonazePAM 1 MG Tablet PO (09:38)
[2020-01-23] MEDS: Acetaminophen 325 MG Tablet 650 MG PO (09:39)
[2020-01-23] MEDS: Gabapentin 300 MG Capsule PO (09:39)
[2020-01-23 13:00] VITALS: BP 132/68; PULSE 73; RESP 16; TEMP 37.1; O2SAT 96
--- NOTE | 2020-01-23 13:00 | PCM.DC.GS ---
Discharge Diet: Light diet - advance as tolerated Allergies/Adverse Reactions: Allergies Penicillins Adverse Reaction (Verified 07/08/19 21:27) Rash Medications to take at Discharge Omeprazole 40 mg PO DAILY 08/11/13 Clonazepam 1 mg PO TID PRN PRN 03/11/14 Gabapentin [Neurontin] 400 mg PO 4X/DAY 01/21/15 Trazodone HCl [Oleptro ER] 300 mg PO QHS 01/21/15 busPIRone [Buspar] 10 mg PO BID PRN PRN 06/20/19 Hydrocodone/Acetaminophen [[place] 5-325 Tablet] 1 ea PO TID 01/22/20 Primary Care Physician: Harish Luis Chi, MD [Primary Care Provider] - Test Results: Test results from this visit will be discussed in further detail at your follow-up appointment, if applicable. Please Follow Up With: Nallely Mccann MD When: The office for a follow-up appointment to discuss colonoscopy in about 2 wk Proposed Discharge Date: 01/23/20
[2020-01-23 14:00] VITALS: BP 113/68; PULSE 93; RESP 18; TEMP 37.4; O2SAT 94
== END 2020-01-23 14:40 | disposition home or self-care (01) ==
LOC: ED 23:48 → MS3 01-23 07:07
PROVIDERS: Admitting Provider Surgery; Emergency Provider Emergency Medicine; PCP Family Medicine Geriatric Medicine; Visit Provider Surgery
DX: K55.9 Vascular disorder of intestine, unspecified (principal); G89.29 Other chronic pain; Z79.899 Other long term (current) drug therapy; Z79.891 Long term (current) use of opiate analgesic; K21.9 Gastro-esophageal reflux disease without esophagitis; M41.9 Scoliosis, unspecified; G43.909 Migraine, unspecified, not intractable, without status migrainosus; F32.9 Major depressive disorder, single episode, unspecified; F41.9 Anxiety disorder, unspecified; Z91.5 Personal history of self-harm; M99.02 Segmental and somatic dysfunction of thoracic region; M99.05 Segmental and somatic dysfunction of pelvic region
CPT/HCPCS: 36415; 74176; 74177; 80048; 80053; 81001; 83605; 83690; 84484; 85025; 87426; 93005; 96361; 96365; 96367; 96375; 96376; 99218; 99251; 99284; J7030; J7040; J7120; Q9967; A4216; G0378; G0463; J0744

== ENCOUNTER 2020-01-25 10:10 | Emergency (ER) | payer MEDICARE, SELFPAY ==
[2020-01-25 10:11] VITALS: BP 160/90; PULSE 73; RESP 18; TEMP 36.6; O2SAT 99; BMI 22.1
--- NOTE | 2020-01-25 10:34 | ED.DCSUM_ITS ---
History of Present Illness Informant: Patient - Abdominal Pain/Flank Pain Onset: Days - 3 days Context: Gradual Onset Timing: Continuous Quality: Cramping Location: Diffuse Current Severity: Moderate Maximum Severity: Severe Worsened by: Nothing Relieved by: Remaining Still - Nausea/Vomiting/Emesis GI Symptom: Nausea. Negative for: Vomiting - Diarrhea/Melena/Hematochezia GI Symptom: Negative for: Diarrhea, Melena, Hematochezia Associated Symptoms: Negative for: Dysuria, Frequency, Hematuria, Urgency Narrative: 69-year-old female presents with abdominal pain. The patient was discharged from here 2 days ago for abdominal pain. She ended up having 2 CT scans of the initial showed possible colitis repeat CT scan was unremarkable and she states that they think that the initial read of the initial CT scan that showed colitis was due to shadowing from her spinal cord stimulator. She has been constipated since leaving the hospital and tried to give herself an enema last evening without improvement. She is on [place] for chronic back pain through pain management. She has had nausea no vomiting. She has been passing flatus. No fevers. She is been urinating normally. Back pain is consistent with chronic pain. She denies any other review of systems at this time. Prior similar symptoms: Yes Recent Illness/Hospitalization: Yes <Héctor Spence - Last Filed: 01/25/20 10:37> <Xu Macias - Last Filed: 01/25/20 11:42> Chief Complaint: Abd Pain Past Medical History Prior records reviewed: Yes Past Medical History: - - Chronic back pain in pain management, migraines, COPD, GERD Surgical History: - - Back surgery, Lives: With Family Smoking Status: Never smoker Alcohol: None Drugs: None - Family History Maternal Family History: Family History (Last Reviewed 07/31/18 @ 11:06 by Ewa Raygoza) Other CVA (cerebral vascular accident) Cancer Hypertension Family History: Reports: No pertinent history <Héctor Spence - Last Filed: 01/25/20 10:37> - Family History Maternal Family History: Family History (Last Reviewed 07/31/18 @ 11:06 by Ewa Raygoza) Other CVA (cerebral vascular accident) Cancer Hypertension <Xu Macias - Last Filed: 01/25/20 11:42> - Allergies and Home Meds Allergies/Adverse Reactions: Allergies Penicillins Adverse Reaction (Verified 01/25/20 10:14) Rash Primary Care Physician: Harish Luis Chi, MD [Primary Care Provider] - Review of Systems All systems negative except as indicated General: Denies: Chills, Fever, Sweats Eyes: Denies: Visual changes - bilaterally, Diplopia ENT: Denies: Rhinorrhea, Sore throat Cardiovascular: Denies: Chest pain, Palpitations Respiratory: Denies: Dyspnea, Cough, Dyspnea on exertion Gastrointestinal: Reports: Abdominal pain, Nausea, Constipation. Denies: Vomiting, Diarrhea, Melena, Hematochezia Genitourinary: Denies: Dysuria, Hematuria, Frequency Musculoskeletal: Denies: Back pain, Extremity Pain Skin: Denies: Rash, Wounds Neurological: Denies: Headache, Weakness, Numbness <Héctor Spence - Last Filed: 01/25/20 10:37> Physical Exam Vital Signs/Narrative: Vital Signs Temp Pulse Resp BP Pulse Ox 01/25/20 10:11 97.9 F 73 18 160/90 H 99 Inital Vital Signs reviewed: Yes General: Well nourished, Well developed, No Acute Distress Head: Normocephalic, Atraumatic Eyes: Perrl, EOMI ENT: Moist mucous membranes, No rhinorrhea Neck: Supple, Nontender Cardiovascular: Regular rate, Regular rhythm, No murmurs Respiratory: No distress, CTA bilaterally, Chest nontender Abdomen: Soft, Nondistended, Normal bowel sounds, Tender - Diffusely tender to palpation but there is no focal tenderness. No guarding or rebound. No peritoneal signs are noted.. Negative for: Guarding, Rebound tenderness Back: Nontender, Normal Inspection Extremities: Nontender, No edema. Negative for: Tenderness, Edema Skin: Normal color, No rash Neurological: Alert, Oriented x3, Cranial nerves II-XII grossly intact, Normal Strength, Normal Sensation, Normal Gait Psychological: Normal affect, Normal Mood <Héctor Spence - Last Filed: 01/25/20 10:37> Vital Signs/Narrative: Vital Signs Temp Pulse Resp BP Pulse Ox 01/25/20 10:11 97.9 F 73 18 160/90 H 99 <Xu Macias - Last Filed: 01/25/20 11:42> Diagnostic/Tx/Re-eval Laboratory Results 01/25/20 01/25/20 10:23 10:23 WBC 6.0 RBC 4.32 Hgb 13.2 Hct 41.1 MCV 95.1 MCH 30.6 MCHC 32.1 RDW Std Deviation 47.2 H RDW Coeff of Mehnaz 13.3 Plt Count 359 MPV 9.2 Immature Gran % (Auto) 0.300 Neut % (Auto) 65.8 Lymph % (Auto) 24.8 [place] % (Auto) 6.2 Eos % (Auto) 2.2 Baso % (Auto) 0.7 Absolute Neuts (auto) 3.9 Absolute Lymphs (auto) 1.48 Nucleated RBC % 0 Sodium 143 Potassium 3.4 L Chloride 111 H Carbon Dioxide 26.0 Anion Gap 6 BUN 5 L Creatinine 0.81 Estim Creat Clear Calc 54.22 Est GFR (MDRD) Af Amer 90 Est GFR (MDRD) Non-Af 74 BUN/Creatinine Ratio 6.2 L Glucose 106 Calcium 8.8 Total Bilirubin 0.50 AST 11 L ALT 15 Alkaline Phosphatase 99 Total Protein 7.0 Albumin 3.5 Globulin 3.5 Albumin/Globulin Ratio 1.0 Lipase 130 - Medical Decision Making Seen and evaluated independently and in conjunction with physician assistant professor of music. Agree with notes above unless documented otherwise. Patient has no worsening abdominal pain, just persistent. She is concerned that she was sent home with nothing for the pain and she is not supposed to follow-up for 2 weeks. She has had no bowel movements recently, potentially constipated, she usually goes once every day or 2 and stools are usually normal. She is on no stool softener and is in pain management with medications from them. Certainly she is a set up for constipation because of that. Her labs are normal with a lower white blood count then when she was recently admitted with the CT scans. Her abdomen is soft nontender nondistended, and for these reasons we do not think she needs to have a repeat CT. 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 We will prescribe her dicyclomine to use as needed, and I advised her to get some MiraLAX, do may be 1/4 cup of it dissolved in fluids, which she is drinking plenty of, on day #1, then just using a capful daily to act as a stool softener, to see if maybe that helps some of her constipation and to continue following up as previously advised. <Xu Macias - Last Filed: 01/25/20 11:42> ED Disposition <Héctor Spence - Last Filed: 01/25/20 10:37> <Xu Macias - Last Filed: 01/25/20 11:42> - Plan for ED Patient: Disposition: Home or Assisted Living Diagnosis: Diffuse abdominal pain, Migraine Instructions: ED Abdominal Pain Unkn Cause Fem Prescriptions: Dicyclomine HCl 10 mg PO Q4H PRN #20 cap PRN Reason: abdominal pain Transmission Status: Pending to [facility] Metoclopramide [Reglan] 10 mg PO 4X/DAY PRN #20 tab PRN Reason: Headache or nausea Transmission Status: Pending to [facility] Referrals: Nallely Mccann MD [STAFF PHYSICIAN] - Keep Jd appointment (May call for sooner appointment if available) Additional Instructions: Get MiraLAX or generic equivalent, polyethylene glycol. On first day, use about 1/4-1/2 cup dissolved in 32-64 ounces liquid and drink plenty of water/liquids, then 1 capful daily.
[2020-01-25 10:40] LABS: Absolute Lymphocyte Count 1.48 X10^3/uL (0.83-4.51); Absolute Neutrophil Count 3.9 X10^3/uL (2.0-7.7); Basophil# 0.04 X10^3/uL; Basophil% 0.7 % (0-1); Eosinophil# 0.13 X10^3/uL; Eosinophils% 2.2 % (0-5); Hematocrit 41.1 % (37-47); Hemoglobin 13.2 g/dL (12.0-15.0); Lymphocyte # 1.48 X10^3/ul (4.0); Lymphocyte % 24.8 % (19-41); Mean Corp Hgb Conc 32.1 g/dL (32-36); Mean Corpuscular Hgb 30.6 pg (27.0-32.0); Mean Corpuscular Volume 95.1 fL (81-99); Mean Platelet Vol. 9.2 fl (6.2-12.0); Monocyte# 0.37 X10^3/uL; Monocyte% 6.2 % (0-10); NRBC Flagged by Analyzer 0 % (0-5); Neutrophil # 3.92 X10^3/uL (2.7-7.7); Neutrophil % 65.8 % (47-70); Platelet Count 359 K/mm3 (150-450); RBC Distribution Width CV 13.3 % (11.6-14.6); RBC Distribution Width SD 47.2 fl (35.1-43.9); Red Blood Count 4.32 M/mm3 (4.2-5.4)
[2020-01-25] MEDS: Ketorolac 15 MG/ML Vial IV (10:43)
[2020-01-25] MEDS: Metoclopramide 10 MG/2 ML Vial IV (10:43)
[2020-01-25] MEDS: 0.9% Normal Saline 1,000 ML 1000 ML IV (10:43)
[2020-01-25 10:53] LABS: AST(SGOT) 11 U/L (15-37); Alanine Aminotransfer ALT/SGPT 15 U/L (13-56); Albumin, Serum 3.5 g/dL (3.2-5.0); Alkaline Phosphatase 99 U/L (45-117); Anion Gap 6 (5-15); BUN 5 mg/dL (7-18); BUN/Creat Ratio 6.2 RATIO (10-20); Calcium,Total 8.8 mg/dL (8.5-10.1); Chloride 111 mmol/L (98-107); Creatinine, Serum 0.81 mg/dL (0.55-1.02); EST Glomerular Filtration Rate 74 mL/min (>60); Est Glom Filt Rate - Afr Amer 90 mL/min (>60); Estimated Creatinine Clearance 54.22 ml/min; Globulin 3.5 g/dL (2.2-4.2); Glucose 106 mg/dL (74-106); Lipase 130 U/L (73-393); Potassium 3.4 mmol/L (3.5-5.1); Sodium Level 143 mmol/L (136-145)
[2020-01-25 11:52] VITALS: BP 161/81; PULSE 63; RESP 16
== END 2020-01-25 11:54 | disposition home or self-care (01) ==
PROVIDERS: Emergency Provider Physician Assistant Medical; PCP Family Medicine Geriatric Medicine
DX: R10.9 Unspecified abdominal pain (principal); G43.909 Migraine, unspecified, not intractable, without status migrainosus; J44.9 Chronic obstructive pulmonary disease, unspecified; K21.9 Gastro-esophageal reflux disease without esophagitis; K59.00 Constipation, unspecified; M54.9 Dorsalgia, unspecified; G89.29 Other chronic pain; Z88.0 Allergy status to penicillin
CPT/HCPCS: 80053; 83690; 85025; 96361; 96374; 96375; 99282; J7030; A4216

== ENCOUNTER 2020-02-17 11:50 | Inpatient (IN) | payer MEDICARE, SELFPAY ==
[2020-02-17] VITALS (9 sets, daily range): BP systolic 90–110; BP diastolic 56–79; PULSE 72–87; RESP 16–20; TEMP 36.1–37.8; O2SAT 88–96; BMI 23.1; BMI 21.7
--- NOTE | 2020-02-17 12:07 | RAD_ITS ---
STUDY: X-RAY CHEST REASON FOR EXAM: Female, 69 years old. Hypotension, confusion, weakness. TECHNIQUE: Single AP portable view of the chest. COMPARISON: Comparison is made with prior study dated 07/08/2019. FINDINGS: EKG electrodes are seen. Hyperinflation. The lungs are clear. There is no demonstrated pleural abnormality. Normal size heart. Normal mediastinum and renea. Normal visualized pulmonary arteries. There is atherosclerotic calcification of the aortic arch with tortuosity. Normal visualized thoracic spine. Electrodes from a TENS unit are seen with the tip at the T6-T7 level. Normal visualized ribs, clavicles, and shoulders. There is no demonstrated abnormality of the visualized soft tissue structures of the upper abdomen. RAD/Chest 1 View (Portable) IMPRESSION: Hyperinflation. No focal abnormality is seen. Electronically Signed: Rafael Sherwood, at 13:03 EST , Service support ,
--- NOTE | 2020-02-17 12:07 | EKG12_ITS ---
Test Reason : WEAKNESS Blood Pressure : / mmHG Vent. Rate : 077 BPM Atrial Rate : 077 BPM P-R Int : 154 ms QRS Dur : 070 ms QT Int : 392 ms P-R-T Axes : 058 071 060 degrees QTc Int : 443 ms Normal sinus rhythm Normal ECG Confirmed by JODY GUIDO, NOEMY ([id number]), offline editor GEGE COSTELLO ([id number]) on 02/18/2020 1:46:41 PM Referred By: AWA Confirmed By:RICHAR VERA MD
--- NOTE | 2020-02-17 12:08 | CT_ITS ---
STUDY: CT BRAIN WITHOUT CONTRAST REASON FOR EXAM: Female, 69 years old. FALLS, WEAKNESS RADIATION DOSAGE (If Supplied By Facility): CTDIvol = ( 44.99 ) mGy, DLP = ( 846.73 ) mGycm TECHNIQUE: Transaxial CT imaging of the brain was performed without administration of intravenous contrast material. Individualized dose optimization techniques were used for this CT. COMPARISON: No relevant priors. FINDINGS: Normal soft tissue structures. Normal calvarium. Normal size ventricles and extra-axial spaces for the patient''s age. Normal white matter tracts of the cerebral hemispheres. Normal basal ganglia and thalami. Normal brainstem. Normal cerebellum. There is no intracranial hemorrhage. There are no findings of an acute ischemic infarction. Normal visualized paranasal sinuses. CT/Brain/Head without Contrast IMPRESSION: Normal unenhanced CT scan of the brain. Electronically Signed: Rafael Sherwood, at 13:00 EST , Service support ,
--- NOTE | 2020-02-17 12:12 | ED.VISSUMM ---
- ER Visit Summary Date of Service: 02/17/20 Chief Complaint: Falls, weakness and confusion History of Present Illness: The patient is a 69 F prior stroke, hypertension and reflux. Reportedly patient's had several falls at home the last several days. Fell last night. Says she hit her head. Denies any LOC. Denies being on any blood thinners. She denies any nausea, vomiting, diarrhea or fever. She denies any headache or dysuria. She denies any neck pain or numbness. Patient is on a significant amount of muscle relaxants, pain medications and psychiatric meds. Reportedly she lives at home with her and his son. Physical Examination: Older female initial blood pressure 90/57. Pulse ox 88 and hypoxic on room air. H EENT exam unremarkable. Reactive light.-Lesions are intact. No facial trauma. No scalp swelling or tenderness. No hematomas or lacerations. Mildly dry mucous members. Neck nontender. Trachea midline. No lymphadenopathy. Lungs clear to auscultation bilaterally. Heart regular rhythm no murmur. Rate about 90. Chest were nontender. Abdomen soft nontender. Normal bowel sounds no peritoneal signs. Pelvic girdle intact. Patient is moving all 4 extremities. Neurovascular intact. She has equal symmetrical armature winder strength. Dorsi plantarflexion intact. She does have mild tenderness to her left knee. There is no gross bony deformity. She is able to flex and extend the knee. Back is nontender. Neurologically she is awake. She is alert. She thought it was in March but knew the year and president. She knew where she was at. She has normal speech. She is following commands normally. She has normal motor strength. Test Results: CBC normal white count of 7. Hemoglobin 13. No bands. Chemistry sodium 133 potassium 3. BUN of 20 creatinine 1.92 with consistent with acute kidney injury. Liver enzymes normal. PT/INR normal. UA normal. Lactate normal. Covid rapid antigen positive. EKG normal sinus rhythm rate of 77 no acute signs of AL or ischemia no change from prior chest x-ray portable 1 view interpreted by myself shows no acute abnormality. Radiologist read and agrees. Left knee x-ray 3 views no acute abnormality. Degenerative arthritis reticulocyte changes. Radiologist read and agreed. CT brain no acute abnormality read by the radiologist reviewed by me. Emergency Department Course and Treatment: Female with falls at home. She is also had hypotension and hypoxia. From extensive work-up. She will receive IV fluids. CAT scan, chest x-ray and labs. Treatment Plan: Repeat exam after a liter normal saline patient's blood pressure currently is 108/59. She is currently doing well. She knows she will be admitted. Have already spoken to the hospitalist. Disposition: Admission Impression: Acute falls with head injury Acute confusion Acute hypotension Acute hypoxia Covid positive Acute kidney injury This note was generated with [employer] dictation software. It may contain incorrect words, spelling, and punctuation that were not noted in review of the chart prior to signing ED Disposition - Plan for ED Patient: Referrals: Harish Luis Chi, MD [Primary Care Provider] -
--- NOTE | 2020-02-17 12:27 | RAD_ITS ---
STUDY: X-RAY - LEFT KNEE REASON FOR EXAM: Female, 69 years old. Frequent falls, pain. TECHNIQUE: 4 view(s) of the knee. COMPARISON: None. FINDINGS: Normal visualized distal femur. Normal visualized proximal tibia and fibula. Normal proximal tibiofibular articulation. There is mild degenerative arthrosis of the medial femorotibial compartment. Normal lateral femorotibial compartment. There is moderate degenerative arthrosis of the patellofemoral articulation. There are atherosclerotic calcifications. RAD/Knee 4 or More Views IMPRESSION: Degenerative arthrosis. Electronically Signed: Rafael Sherwood, at 13:04 EST , Service support ,
[2020-02-17] MEDS: 0.9% Normal Saline 1,000 ML 1000 ML IV (12:45)
[2020-02-17 12:53] LABS: Absolute Neutrophil Count 6.9 X10^3/uL (2.0-7.7); Basophil# 0.03 X10^3/uL; Basophil% 0.4 % (0-1); Hematocrit 40.1 % (37-47); Hemoglobin 13.1 g/dL (12.0-15.0); Lymphocyte % 6.3 % (19-41); Mean Corp Hgb Conc 32.7 g/dL (32-36); Mean Corpuscular Hgb 31.1 pg (27.0-32.0); Mean Corpuscular Volume 95.2 fL (81-99); Mean Platelet Vol. 10.3 fl (6.2-12.0); Monocyte% 6.3 % (0-10); NRBC Flagged by Analyzer 0 % (0-5); Neutrophil # 6.88 X10^3/uL (2.7-7.7); Neutrophil % 86.6 % (47-70); POSITIVE DIFFERENTIAL YES; Platelet Count 271 K/mm3 (150-450); RBC Distribution Width CV 13.7 % (11.6-14.6); Red Blood Count 4.21 M/mm3 (4.2-5.4); White Blood Count 7.9 K/mm3 (4.4-11.0)
[2020-02-17 12:58] LABS: Prothrombin Time (Protime)PT. 12.5 SECONDS (11.7-14.9)
[2020-02-17 12:59] LABS: Differential Indicated SCAN CRITERIA MET
[2020-02-17 13:07] LABS: Bacteria 0 SEEN /hpf (None Seen); Mucous, Urine 0 SEEN /hpf (<or=2+); Red Blood Cells-Urine 0 SEEN /hpf (0-5); White Blood Cells 0 SEEN /hpf (0-5)
[2020-02-17 13:08] LABS: AST(SGOT) 18 U/L (15-37); Alanine Aminotransfer ALT/SGPT 15 U/L (13-56); Albumin, Serum 3.6 g/dL (3.2-5.0); Alkaline Phosphatase 89 U/L (45-117); Anion Gap 8 (5-15); BUN 20 mg/dL (7-18); BUN/Creat Ratio 10.4 RATIO (10-20); Calcium,Total 8.7 mg/dL (8.5-10.1); Chloride 99 mmol/L (98-107); Creatinine, Serum 1.92 mg/dL (0.55-1.02); EST Glomerular Filtration Rate 28 mL/min (>60); Est Glom Filt Rate - Afr Amer 33 mL/min (>60); Estimated Creatinine Clearance 22.88 ml/min; Globulin 3.5 g/dL (2.2-4.2); Glucose 138 mg/dL (74-106); Protein, Total 7.1 g/dL (6.4-8.2); Sodium Level 133 mmol/L (136-145)
[2020-02-17 13:15] LABS: Color, Urine Yellow (Yellow); Glucose, Dipstick Normal (Normal); Ketone-Dipstick Negative (Negative); Leukocyte Esterase-Dipstick Negative /ul (Negative); Nitrite-Dipstick Negative (Negative); Occult Blood-Urine Negative /ul (Negative); Protein-Dipstick Negative (Negative); Specific Gravity, Urine 1.015 (1.002-1.030); Urine Bilirubin Dipstick Negative (Negative); Urine Clarity Clear (Clear); Urine Urobilinogen Normal (Normal)
[2020-02-17 13:19] LABS: Lactic Acid 1.1 mmol/L (0.4-1.9)
[2020-02-17 13:36] LABS: Squamous Epithelial Cells - UA 0-5 SEEN /hpf (5-10)
[2020-02-17 13:47] LABS: Alcohol, Blood (Medical)-Serum < 3.0 mg/dL
[2020-02-17] MEDS: dexAMETHasone 4 MG Tablet 6 MG PO (14:25)
[2020-02-17] MEDS: 0.9% Normal Saline 1,000 ML 150 ML IV (16:03)
--- NOTE | 2020-02-17 16:07 | NURSING ---
Attempted to call pt's spouse Jose to verify home medication list x3, no answer. Message left to return call.
--- NOTE | 2020-02-17 18:54 | HP.PCM_ITS ---
Problem List (1) Generalized weakness Status: Acute (2) Debility Status: Acute History of Present Illness Date of Admission: 02/17/20 Chief Complaint: Generalized weakness, debility The patient is a 69 year old F who was seen in the emergency room at [facility] with a chief complaint of generalized weakness and debility. Patient was a poor informant and obtaining information from the patient directly was very difficult. Patient did not complain of any shortness of breath to this examiner, she did not complain of any chills or fever at home. On admission, it was noted that her pulse ox was 88% on room air, chest x-ray was obtained which showed no active infiltrates, CBC was unremarkable, chemistry profile showed a creatinine of 1.92, BUN of 20, potassium of 3, her lactic acid was normal at 1.1. Patient's urinalysis was unremarkable. Patient's COVID-19 rapid antigen test resulted positive. Patient will be admitted to [facility] to for COVID-19 infection with hypoxia, I briefly talked with infectious diseases who recommended the patient receive remdesivir and dexamethasone. I have written for the initial dose of remdesivir, I will defer to infectious diseases to continue the patient on this medication due to her renal insufficiency, I feel that the patient's creatinine today is a result of her being dehydrated. It may improve with administration of fluids in the holding of her blood pressure medications which has a diuretic. Past Medical History Past Medical History (Chronic Problems): Chronic Problems (Last Reviewed 07/31/18 @ 11:06 by Ewa Raygoza) Scoliosis of lumbar spine (Chronic) Scoliosis (Chronic) Palpitations (Chronic) GERD (Chronic) Chronic lower back pain (Chronic) Has electrical stimulator Migraine (Chronic) Depression (Chronic) Medical History: Medical History (Last Reviewed 07/31/18 @ 11:06 by Ewa Raygoza) Carpal tunnel syndrome on both sides G56.03 Allergies Penicillins Allergy (Verified 02/17/20 15:47) Rash Home Medications: Ambulatory Orders Medication Instructions Recorded Metoclopramide [Reglan] 10 mg PO 4X/DAY PRN #20 tab 01/25/20 Buspirone HCl 7.5 mg PO BID 02/17/20 Citalopram [Celexa] 20 mg PO DAILY 02/17/20 Clonazepam 1 mg PO TID 02/17/20 Dicyclomine HCl 10 mg PO Q4H PRN 02/17/20 Hydrocodone/Acetaminophen 1 tab PO TID 02/17/20 [Hydrocodone-Acetamin 7.5-325] Topiramate 25 mg PO BID 02/17/20 Trazodone HCl 300 mg PO QHS PRN 02/17/20 Valsartan/Hydrochlorothiazide 1 tab PO DAILY 02/17/20 [Valsartan-Hctz 80-12.5 mg Tab] Surgical History: Surgical History (Last Reviewed 07/31/18 @ 11:06 by Ewa Raygoza) History of lumbar laminectomy Z98.890 Surgical History: - - Back surgery, , carpal tunnel surgery Psychiatric History: Anxiety, Depression, Prior suicide attempt Lives: Spouse/ Significant Other Smoking Status: Current every day smoker Tobacco Use: Vapor Alcohol: None Drugs: None - *Family History Maternal Family History: Family History (Last Reviewed 07/31/18 @ 11:06 by Ewa Raygoza) Other CVA (cerebral vascular accident) Cancer Hypertension History Items: No pertinent history Paternal Family History: Family History (Last Reviewed 07/31/18 @ 11:06 by Ewa Raygoza) Other CVA (cerebral vascular accident) Cancer Hypertension History Items: No pertinent history Review of Systems Constitutional: Reports: Malaise, Fatigue. Denies: Anorexia, Chills, Fever, Night Sweats, Weakness, Weight Change Eyes: Denies: Cataracts, Conjunctivae Inflammation, Double vision, Drainage HEENT: Denies: Difficulty Swallowing, Dysphasia, Ear Pain, Eye Pain, Hearing Changes, Nasal bleeding, Nasal Congestion, Post Nasal Drip Cardiovascular: Denies: Chest Pain, Claudication, Chest Pressure, Chest Tightness, Edema, Palpitations Respiratory: Denies: Cough, Hemoptysis, Pleuritic Pain, Shortness of Breath, Shortness of breath at rest, Shortness of breath upon exertion, Sputum production Gastrointestinal: Denies: Abdominal Pain, Constipation, Diarrhea, Hematemesis, Hematochezia, Nausea, Melena, Vomiting Genitourinary: Denies: Dysuria, Frequency, Hematuria, Hesitancy, Urgency Musculoskeletal: Reports: Back Pain - Chronic back pain. Denies: Foot Pain, [place] nd Pain, Joint Pain, Joint stiffness, Joint swelling, Joint Tenderness, Leg Pain Skin: Denies: Dryness, Pruritis, Rash Neurological: Denies: Blurred vision, Double vision, Slurred speech, Difficulty swallowing, Focal weakness, Numbness, Tingling Psychiatric: Denies: Anxiety, Depression, Homicidal Ideations, Suicidal Ideatio ns Endocrine: Denies: Change in Body Habitus, Heat/ Cold Intolerance, Polydipsia, Polyuria Hematologic/ Lymphatic: Denies: Adenopathy, Anemia, Easy Bruising, Easy Bleeding, Petechiae, Purpura VTE Information - Inpt Only VTE Present on Admission: No VTE Mechan Device Prophylaxis: None VTE Pharm Prophylaxis ordered?: Yes Patient Problems: Active and Suspected Problems (Last Reviewed 07/31/18 @ 11:06 by Ewa Raygoza) Generalized weakness (Acute) Debility (Acute) - Physical Exam Vitals/I&O's: Vital Signs Temp Pulse Resp BP Pulse Ox 98.8 F 80 16 96/56 L 95 02/17/20 17:18 02/17/20 17:18 02/17/20 17:18 02/17/20 17:18 02/17/20 17:18 Oxygen Flow Rate (L/min) 1 Oxygen Delivery Method Nasal Cannula Weight: 55.7 kg Body Mass Index (BMI) 21.7 Intake and Output for Last 24 Hours 02/15/20 02/16/20 02/17/20 23:59 23:59 23:59 Intake Total 1000 / 1000 Balance 1000 / 1000 General: Alert, Oriented x3, Cooperative, No apparent distress, Well developed, Well nourished, - - Patient is a poor informant HEENT: Atraumatic, PERRLA, EOMI, Normocephalic Oral: Dry Mucosa Neck: Supple, No JVD, Negative Carotid Bruits, Trachea Midline, Thyroid Normal Size and Texture Lungs: Clear to auscultation, Normal air movement, No rhonchi, No wheeze, No rales Cardiovascular: Regular rate, Regular Rhythm, Normal S1, Normal S2, No murmurs, PMI Normal, No rub noted, No Gallop Abdomen: Bowel Sounds Present, Soft, Non Tender, Non-Distended, No hernias noted Extremities: No clubbing, No cyanosis, No edema, Capillary Refill Less than 3 Seconds Skin: No rashes, No breakdown Musculoskeletal: No Tenderness to Palpation of Joints or Extremities Neurological: Cranial nerves II-XII grossly intact, Neuro grossly intact, Sensory exam intact to light touch and pain Psych/Mental Status: Appropriate, Flat Affect, - - Patient is a poor informant Microbiology Past 72 Hours 02/17/20 12:40 Mucosa - Nose SARS-CoV-2 Antigen (Rapid) - Final SARS-CoV-2 (COVID 19) Laboratory Results 02/17/20 11:59: WBC 7.9, RBC 4.21, Hgb 13.1, Hct 40.1, MCV 95.2, MCH 31.1, MCHC 32.7, RDW Std Deviation 48.0 H, RDW Coeff of Mehnaz 13.7, Plt Count 271, MPV 10.3, Immature Gran % (Auto) 0.400, Neut % (Auto) 86.6 H, Lymph % (Auto) 6.3 L, [place] % (Auto) 6.3, Eos % (Auto) 0.0, Baso % (Auto) 0.4, Absolute Neuts (auto) 6.9, Absolute Lymphs (auto) 0.50 L, Nucleated RBC % 0, Differential Comment COMMENT 02/17/20 11:59: PT 12.5, INR 1.0 02/17/20 11:59: Sodium 133 L, Potassium 3.0 L, Chloride 99, Carbon Dioxide 26.0, Anion Gap 8, BUN 20 H, Creatinine 1.92 H, Estim Creat Clear Calc 22.88, Est GFR (MDRD) Af Amer 33 L, Est GFR (MDRD) Non-Af 28 L, BUN/Creatinine Ratio 10.4, Glucose 138 H, Calcium 8.7, Total Bilirubin 0.80, AST 18, ALT 15, Alkaline Phosphatase 89, Total Protein 7.1, Albumin 3.6, Globulin 3.5, Albumin/Globulin Ratio 1.0 02/17/20 11:59: Ethyl Alcohol < 3.0 02/17/20 12:30: Lactic Acid 1.1 02/17/20 13:04: Urine Color Yellow, Urine Clarity Clear, Urine pH 5.0, Ur Specific [place] 1.015, Urine Protein Negative, Urine Glucose (UA) Normal, Urine Ketones Negative, Urine Occult Blood Negative, Urine Nitrite Negative, Urine Bilirubin Negative, Urine Urobilinogen Normal, Ur Leukocyte Esterase Negative, Urine RBC 0 SEEN, Urine WBC 0 SEEN, Ur Squamous Epith Cells 0-5 SEEN, Urine Bacteria 0 SEEN, Urine Mucus 0 SEEN Current Medications Acetaminophen (Acetaminophen 325 Mg Tablet) 650 mg PO Q6H PRN PRN PRN Reason: Pain Score 1-10/Temp > 100.7 F Citalopram Hydrobromide (Citalopram 20 Mg Tablet) 20 mg PO DAILY [facility] Clonazepam (Clonazepam 1 Mg Tablet) 1 mg PO TID [facility] Dexamethasone (Dexamethasone 4 Mg Tablet) 6 mg PO DAILY [facility] Enoxaparin Sodium (Enoxaparin 30 Mg/0.3 Ml Syringe) 30 mg SC DAILY [facility] Sodium Chloride () 1,000 mls @ 150 mls/hr IV .Q6H40M JEANNIE Last Admin: 02/17/20 16:03 Dose: 150 mls/hr Documented by: Remdesivir 200 mg/ Sodium (Chloride) 250 mls @ 125 mls/hr IV X1 ONE Stop: 02/17/20 18:59 Last Admin: 02/17/20 17:38 Dose: 125 mls/hr Documented by: Non-Formulary Medication (Buspirone Hcl) 7.5 mg PO BID [facility] Non-Formulary Medication (Hydrocodone/Acetaminophen [Hydrocodone-Acetamin 7.5- 325]) 1 tab PO TID [facility] Non-Formulary Medication (Topiramate) 25 mg PO BID [facility] Non-Formulary Medication (Trazodone Hcl) 300 mg PO QHS PRN PRN Reason: SLEEP Ondansetron HCl (Ondansetron 4 Mg/2 Ml Vial) 4 mg IV Q8H PRN PRN PRN Reason: NAUSEA/VOMITING Sodium Chloride (0.9% Saline Lock 10 Ml Syringe) 10 - 40 ml IV UD PRN PRN Reason: SALINE FLUSH Assessment/Plan All Active Problems (Last Reviewed 07/31/18 @ 11:06 by Ewa Raygoza) Ischemic bowel disease (Resolved) Generalized weakness (Acute) Debility (Acute) Segmental and somatic dysfunction of pelvic region (Resolved) Segmental dysfunction of thoracic region (Resolved) Segmental and somatic dysfunction of lumbar region (Resolved) #1 COVID-19 infection without pneumonia-patient will be admitted to [facility] 2, I have placed the patient on dexamethasone and remdesivir, she will be seen by infectious diseases tomorrow #2 generalized weakness secondary to #1 with an overlie of chronic medical problems including chronic back pain and depression-patient will be seen by PT and OT #3 essential hypertension-patient's blood pressure medication will be held due to hypotension #4 dehydration-patient's creatinine is elevated which I feel is secondary to deh ydration and use of diuretics for blood pressure, I will give the patient IV fluids and reevaluate her labs tomorrow #5 GERD #6 hypokalemia-patient will be given oral potassium supplementation, her labs will be rechecked, this is probably the result of diuretic usage #7 chronic depression/anxiety-patient will be kept on her home medications #8 chronic migraines-patient is on Topamax Inpatient E&M: [id number] Init Hosp L3
[2020-02-17] MEDS: busPIRone 5 MG Tablet 7.5 MG PO (20:53)
[2020-02-17] MEDS: Topiramate 25 MG Tablet PO (20:53)
[2020-02-17] MEDS: clonazePAM 1 MG Tablet PO (20:53)
[2020-02-17] MEDS: HYDROCODONE/APAP 7.5-325/15ML 15 ML UDC PO (20:55)
[2020-02-18] MEDS: 0.9% Normal Saline 1,000 ML 150 ML IV ×3 (02:17→21:10)
[2020-02-18 02:50] VITALS: BP 91/52; PULSE 61; RESP 18; TEMP 35.8; O2SAT 96
[2020-02-18] MEDS: Acetaminophen 325 MG Tablet 650 MG PO (04:28)
[2020-02-18 04:30] VITALS: BP 116/68; PULSE 73; RESP 18; TEMP 36.5; O2SAT 96
[2020-02-18 05:57] LABS: Anion Gap 5 (5-15); BUN 18 mg/dL (7-18); BUN/Creat Ratio 19.8 RATIO (10-20); Calcium,Total 8.2 mg/dL (8.5-10.1); Chloride 108 mmol/L (98-107); Creatinine, Serum 0.91 mg/dL (0.55-1.02); EST Glomerular Filtration Rate 65 mL/min (>60); Est Glom Filt Rate - Afr Amer 79 mL/min (>60); Estimated Creatinine Clearance 48.27 ml/min; Glucose 106 mg/dL (74-106); Sodium Level 138 mmol/L (136-145)
[2020-02-18] MEDS: HYDROCODONE/APAP 7.5-325/15ML 15 ML UDC PO ×3 (06:16→22:28)
[2020-02-18] MEDS: clonazePAM 1 MG Tablet PO ×3 (06:16→22:24)
--- NOTE | 2020-02-18 08:26 | PCM.PN.HOSP ---
Patient Problems: Active and Suspected Problems (Last Reviewed 07/31/18 @ 11:06 by Ewa Raygoza) Generalized weakness (Acute) Debility (Acute) Reason for Visit: Follow-up for back pain and generalized weakness and debility. Objective: No fever or chills. Patient on room air. Patient denies any Covid related symptoms including cough, fever or chills, nausea, vomiting, diarrhea, sore throat or URI symptoms. Physical exam General: Alert, Oriented x3, Cooperative HEENT: Atraumatic, PERRLA, EOMI, Normocephalic Oral: No Gingival or Mucosal Lesions/ Ulcerations Neck: Supple, No JVD, Negative Carotid Bruits Lungs: Air entry equal in bilateral lung bases. No crepitation/rhonchi Cardiovascular: Regular rate, Regular Rhythm, Normal S1, Normal S2, No murmurs Abdomen: Bowel Sounds Present, Soft, Non Tender, Non-Distended : No renal angle tenderness. No suprapubic tenderness. Extremities: No edema, Capillary Refill Less than 3 Seconds Skin: No rashes, No breakdown Musculoskeletal: Tenderness in the lumbar spine. No Tenderness to Palpation of other joints or Extremities Neurological: Cranial nerves II-XII grossly intact, Deep Tendon Reflexes 2+/4 and Symmetrical, Neuro grossly intact Psych/Mental Status: Normal Affect, Appropriate. Vitals/I&O's: Vital Signs Temp Pulse Resp BP Pulse Ox 97.7 F L 73 18 116/68 96 02/18/20 04:30 02/18/20 04:30 02/18/20 04:30 02/18/20 04:30 02/18/20 04:30 Oxygen Flow Rate (L/min) 1 Oxygen Delivery Method Room Air Weight: 122 lb 12.76 oz Body Mass Index (BMI) 21.7 Intake and Output for Last 24 Hours 02/16/20 02/17/20 02/18/20 23:59 23:59 23:59 Intake Total 2550 / 2550 Output Total 900 / 900 Balance 1650 / 1650 Microbiology Past 72 Hours 02/17/20 12:40 Mucosa - Nose SARS-CoV-2 Antigen (Rapid) - Final SARS-CoV-2 (COVID 19) Laboratory Results 02/17/20 11:59: WBC 7.9, RBC 4.21, Hgb 13.1, Hct 40.1, MCV 95.2, MCH 31.1, MCHC 32.7, RDW Std Deviation 48.0 H, RDW Coeff of Mehnaz 13.7, Plt Count 271, MPV 10.3, Immature Gran % (Auto) 0.400, Neut % (Auto) 86.6 H, Lymph % (Auto) 6.3 L, [place] % (Auto) 6.3, Eos % (Auto) 0.0, Baso % (Auto) 0.4, Absolute Neuts (auto) 6.9, Absolute Lymphs (auto) 0.50 L, Nucleated RBC % 0, Differential Comment COMMENT 02/17/20 11:59: PT 12.5, INR 1.0 02/17/20 11:59: Sodium 133 L, Potassium 3.0 L, Chloride 99, Carbon Dioxide 26.0, Anion Gap 8, BUN 20 H, Creatinine 1.92 H, Estim Creat Clear Calc 22.88, Est GFR (MDRD) Af Amer 33 L, Est GFR (MDRD) Non-Af 28 L, BUN/Creatinine Ratio 10.4, Glucose 138 H, Calcium 8.7, Total Bilirubin 0.80, AST 18, ALT 15, Alkaline Phosphatase 89, Total Protein 7.1, Albumin 3.6, Globulin 3.5, Albumin/Globulin Ratio 1.0 02/17/20 11:59: Ethyl Alcohol < 3.0 02/17/20 12:30: Lactic Acid 1.1 02/17/20 13:04: Urine Color Yellow, Urine Clarity Clear, Urine pH 5.0, Ur Specific [place] 1.015, Urine Protein Negative, Urine Glucose (UA) Normal, Urine Ketones Negative, Urine Occult Blood Negative, Urine Nitrite Negative, Urine Bilirubin Negative, Urine Urobilinogen Normal, Ur Leukocyte Esterase Negative, Urine RBC 0 SEEN, Urine WBC 0 SEEN, Ur Squamous Epith Cells 0-5 SEEN, Urine Bacteria 0 SEEN, Urine Mucus 0 SEEN 02/18/20 04:56: Sodium 138, Potassium 4.0, Chloride 108 H, Carbon Dioxide 25.0, Anion Gap 5, BUN 18, Creatinine 0.91, Estim Creat Clear Calc 48.27, Est GFR (MDRD) Af Amer 79, Est GFR (MDRD) Non-Af 65, BUN/Creatinine Ratio 19.8, Glucose 106, Calcium 8.2 L Current Medications Acetaminophen (Acetaminophen 325 Mg Tablet) 650 mg PO Q6H PRN PRN PRN Reason: Pain Score 1-10/Temp > 100.7 F Last Admin: 02/18/20 04:28 Dose: 650 mg Documented by: Hydrocodone Bitart/Acetaminophen (Hydrocodone/Apap 7.5-325/15ml 15 Ml Udc) 15 ml PO TID [facility] Last Admin: 02/18/20 06:16 Dose: 15 ml Documented by: Buspirone HCl (Buspirone 5 Mg Tablet) 7.5 mg PO BID [facility] Last Admin: 02/17/20 20:53 Dose: 7.5 mg Documented by: Citalopram Hydrobromide (Citalopram 20 Mg Tablet) 20 mg PO DAILY [facility] Clonazepam (Clonazepam 1 Mg Tablet) 1 mg PO TID [facility] Last Admin: 02/18/20 06:16 Dose: 1 mg Documented by: Dexamethasone (Dexamethasone 4 Mg Tablet) 6 mg PO DAILY [facility] Enoxaparin Sodium (Enoxaparin 30 Mg/0.3 Ml Syringe) 30 mg SC DAILY [facility] Sodium Chloride () 1,000 mls @ 150 mls/hr IV .Q6H40M [facility] Last Admin: 02/18/20 02:17 Dose: 150 mls/hr Documented by: Ondansetron HCl (Ondansetron 4 Mg/2 Ml Vial) 4 mg IV Q8H PRN PRN PRN Reason: NAUSEA/VOMITING Sodium Chloride (0.9% Saline Lock 10 Ml Syringe) 10 - 40 ml IV UD PRN PRN Reason: SALINE FLUSH Topiramate (Topiramate 25 Mg Tablet) 25 mg PO BID [facility] Last Admin: 02/17/20 20:53 Dose: 25 mg Documented by: Trazodone HCl (Trazodone 100 Mg Tablet) 300 mg PO QHS PRN PRN Reason: SLEEP STROKE Vital Signs/Narrative: Vital Signs Temp Pulse Resp BP Pulse Ox 02/18/20 04:30 97.7 F L 73 18 116/68 96 Medical Necessity - Tobacco Use Smoking Status: Current every day smoker Tobacco Use: Vapor Assessment/Plan All Active Problems (Last Reviewed 07/31/18 @ 11:06 by Ewa Raygoza) Ischemic bowel disease (Resolved) Generalized weakness (Acute) Debility (Acute) Segmental and somatic dysfunction of pelvic region (Resolved) Segmental dysfunction of thoracic region (Resolved) Segmental and somatic dysfunction of lumbar region (Resolved) This 69-year-old female, poor informant was admitted for generalized weakness and debility. #1 Doubtful/possible false positive COVID-19 rapid antigen test: Patient denies any recent exposure or attending crowd or gathering. COVID-19 PCR test ordered. ID consult for further opinion. Empirically patient was put on dexamethasone and remdesivir. #2 generalized weakness with chronic back pain for 15 years and other chronic multiple problem including depression: PT and OT. Patient follows Dr. Wasserman and gets lumbar/epidural pain injections. #3 essential hypertension: Antihypertensive meds on hold as patient was hypotensive yesterday. Currently normotensive 128/70. #4 Dehydration: Corrected. #5 GERD #6 hypokalemia-corrected, repeat K4.0. #7 chronic depression/anxiety- home medications continued #8 chronic migraines-patient is on Topamax Inpatient E&M: [id number] Subs Hosp L2
[2020-02-18 10:02] VITALS: BP 97/54; PULSE 73; RESP 18; TEMP 36.6; O2SAT 93
[2020-02-18] MEDS: dexAMETHasone 4 MG Tablet 6 MG PO (10:05)
[2020-02-18] MEDS: busPIRone 5 MG Tablet 7.5 MG PO ×2 (10:05→20:04)
[2020-02-18] MEDS: Citalopram 20 MG Tablet PO (10:06)
[2020-02-18] MEDS: Topiramate 25 MG Tablet PO ×2 (10:07→20:04)
--- NOTE | 2020-02-18 10:24 | CASEMGMT ---
RN CM Assessment Note Introduced role of CM to patient. Demographics, PCP verified. The patient states she has back issues and sees Dr. Seo, but is generally independent @ home. She reportedly fell last night @ home and was confused. Today she states she is feeling improved and was alert, normal speech pattern and able to participate in the assessment. She has a walker and cane which she uses daily. She states she is independent with ADL's and IADL's, but her is able to assist if needed. Her is not showing COVID symptoms, and has not been tested. -Patient also stated her 7 year old grandson is visiting with them. Patient would like to speak with Dr. Bee re: whether he needs to be tested. -Pt is able to have someone bring groceries etc. COVID TESTING: Rapid Antigen test @ [facility] Presentation: falls, hypoxia Diagnosis: COVID-19 (positive rapid antigen test) PCP: Dr. Luis Specialists: Dr. Seo Insurance: [facility] Preferred Pharmacy: [facility] Prescription Benefit: yes LNOK: Living Arrangements: Lives with her . States she is generally independent. PT/OT ordered and will review evaluations when completed Tranportation: drives DME: walker, cane, shower seat. If home oxygen is needed, no preference for DME provider as long as is [facility] with insurance. Reviewed list of area providers with her. Per [place] website, [facility] providers are: [facility], [facility], [facility], [facility]. HHC: none SNF: none Patient DC Goals: Home DC Plan: Home. PT/OT evals pending. CM available for discharge planning coordination. Contact CM for any concerns/needs that may arise. Maureen REHMANN RN ACM
[2020-02-18] MEDS: Enoxaparin 40 MG/0.4 ML Syringe SC (12:14)
--- NOTE | 2020-02-18 14:08 | CHAPLAIN ---
Type of Pastoral Visit _x__ Initial Visit ___ Follow-up Visit ___ On-call Visit ___ General Patient Visit ___ Spiritual Assessment ___ Family Conference ___ Bereavement ___ Rapid Response ___ Code Blue _x__ Other (describe below) Pastoral Care Referral From _x__ Patient ___ Family ___ Nurse ___ Physician ___ Industrial Automation Engineer ___ Buy Boat Operator ___ Other (describe below) Sacrament/Intervention _x__ Active listening ___ Anointing ___ Sikhism ___ Bereavement ___ Communion _x__ Peg exploration ___ _x__ Life review _x__ Prayer ___ Reconciliation ___ Sacrament of Sick ___ Supportive presence ___ Wedding ___ Other (describe below) Pastoral Comments phone call made to patient due to pt being in isolation; pt is very talkative and gives much family and life history/review; pt has concerns about her family; pt has Restorationist background and relies on peg in God as well as her for support; pt states that grandson and son are also supportive; prayer given
[2020-02-18 14:29] VITALS: BP 128/70; PULSE 73; RESP 18; TEMP 36.5; O2SAT 94
--- NOTE | 2020-02-18 16:34 | CON.PCM_ITS ---
Problem List (1) COVID-19 Status: Acute Reason for Consult: covid Consulted by: Dr. Posey History of Present Illness: The patient is a 69 year old F with sx starting 02/14 with dizziness, weakness, and back aches. No sick contacts, has been feeling fine, is going to get tested. Some mild cough as well, but denies fever, headache, n/v/d, dyspnea. Daughter and grandson live with someone with covid, and grandson was over last week to help decorate [place] tree. Pt came to ED, admitted, covid (+), started dex, lovenox, remdesivir. Found to be hypoxic and in DEE. Feeling better today. Full ROS performed and neg except as noted above. - Medical History Past Medical History (Chronic Problems): Chronic Problems (Last Reviewed 07/31/18 @ 11:06 by Ewa Raygoza) Scoliosis of lumbar spine (Chronic) Scoliosis (Chronic) Palpitations (Chronic) GERD (Chronic) Chronic lower back pain (Chronic) Has electrical stimulator Migraine (Chronic) Depression (Chronic) Allergies/Adverse Reactions: Allergies Penicillins Allergy (Verified 02/17/20 15:47) Rash Home Medications: Ambulatory Orders Medication Instructions Recorded Metoclopramide [Reglan] 10 mg PO 4X/DAY PRN #20 tab 01/25/20 Buspirone HCl 7.5 mg PO BID 02/17/20 Citalopram [Celexa] 20 mg PO DAILY 02/17/20 Clonazepam 1 mg PO TID 02/17/20 Dicyclomine HCl 10 mg PO Q4H PRN 02/17/20 Hydrocodone/Acetaminophen 1 tab PO TID 02/17/20 [Hydrocodone-Acetamin 7.5-325] Topiramate 25 mg PO BID 02/17/20 Trazodone HCl 300 mg PO QHS PRN 02/17/20 Valsartan/Hydrochlorothiazide 1 tab PO DAILY 02/17/20 [Valsartan-Hctz 80-12.5 mg Tab] - Social History Tobacco Use: cigarettes Vital Signs Temp Pulse Resp BP Pulse Ox 97.7 F L 73 18 128/70 H 94 02/18/20 14:29 02/18/20 14:29 02/18/20 14:29 02/18/20 14:29 02/18/20 14:29 Oxygen Flow Rate (L/min) 1 Oxygen Delivery Method Room Air Weight: 55.7 kg Body Mass Index (BMI) 21.7 Microbiology Past 72 Hours 02/17/20 12:40 SARS-CoV-2 Antigen (Rapid) - Final Mucosa - Nose SARS-CoV-2 (COVID 19) Laboratory Tests Past 24 Hrs 02/18/20 04:56 Sodium 138 Potassium 4.0 Chloride 108 H Carbon Dioxide 25.0 Anion Gap 5 BUN 18 Creatinine 0.91 Estim Creat Clear Calc 48.27 Est GFR (MDRD) Af Amer 79 Est GFR (MDRD) Non-Af 65 BUN/Creatinine Ratio 19.8 Glucose 106 Calcium 8.2 L - Other Studies Radiology: [] reviewed Other Studies: [] Route of nutrition/ use of supplements: [] Nutritional Intake: [] IV Site: [] Bass Catheter: [] - Physical Exam General: Alert, Oriented x3, Cooperative, No apparent distress HEENT: Atraumatic, PERRLA, EOMI Neck: Supple, No Nodes Lungs: Clear to auscultation, Diminished Cardiovascular: Regular rate, Regular Rhythm Abdomen: Soft, Non Tender, Non-Distended Extremities: No edema Skin: No rashes IV Site: Peripheral, without redness Musculoskeletal: No Tenderness to Palpation of Joints or Extremities Neurological: Cranial nerves II-XII grossly intact - Assessment/Plan Antibiotics: [] Assessment/Plan: [] Active and Suspected Problems (Last Reviewed 07/31/18 @ 11:06 by Ewa Raygoza) Generalized weakness (Acute) Debility (Acute) covid with DEE and hypoxia - feeling better. Sx started 02/14. to be tested. Grandson visited recently and lives with someone who is (+). DEE resolved. On dex, remdesivir. Will check d-dimer, continue meds. May be able to be discharged home tomorrow. Will follow, thank you.
[2020-02-18 17:38] VITALS: BP 136/80; PULSE 66; RESP 18; TEMP 36.4; O2SAT 94
[2020-02-18] MEDS: traZODone 100 MG Tablet 300 MG PO (22:20)
[2020-02-19 02:58] VITALS: BP 126/69; PULSE 59; RESP 17; TEMP 36.4; O2SAT 94
[2020-02-19] MEDS: 0.9% Normal Saline 1,000 ML 150 ML IV (03:05)
[2020-02-19] MEDS: clonazePAM 1 MG Tablet PO (05:46)
[2020-02-19] MEDS: HYDROCODONE/APAP 7.5-325/15ML 15 ML UDC PO (05:47)
[2020-02-19 08:26] LABS: Hematocrit 34.1 % (37-47); Hemoglobin 11.1 g/dL (12.0-15.0); Mean Corp Hgb Conc 32.6 g/dL (32-36); Mean Corpuscular Hgb 31.1 pg (27.0-32.0); Mean Corpuscular Volume 95.5 fL (81-99); Mean Platelet Vol. 10.2 fl (6.2-12.0); Platelet Count 265 K/mm3 (150-450); RBC Distribution Width SD 49.4 fl (35.1-43.9); Red Blood Count 3.57 M/mm3 (4.2-5.4); White Blood Count 7.4 K/mm3 (4.4-11.0)
--- NOTE | 2020-02-19 08:34 | DCINST_ITS ---
- Discharge Diagnoses Current Active Problems: Current Active and Chronic Problems (Last Reviewed 07/31/18 @ 11:06 by Ewa Raygoza) COVID-19 (Acute) Generalized weakness (Acute) Debility (Acute) You will use the following diet at home:: Cardiac Your food should be the consistency of: Regular Discharge Activity: May Not Drive Weight Bearing Status: Weight bearing as tolerated Call your doctor if you observe: Fever of 101 or Higher, Numbness or Tingling, Change in Color, Inability to have a bowel movement, Shortness of breath, Dizziness, Fainting spells, Swelling in the ankles, Chest pain, Prolonged hiccoughing, Increased palpitations (irregular heartbeat), Calf discomfort, Uncontrolled pain Allergies/Adverse Reactions: Allergies Penicillins Allergy (Verified 02/17/20 15:47) Rash Medications to take at Discharge Metoclopramide [Reglan] 10 mg PO 4X/DAY PRN #20 tab 01/25/20 Buspirone HCl 7.5 mg PO BID 02/17/20 Citalopram [Celexa] 20 mg PO DAILY 02/17/20 Clonazepam 1 mg PO TID 02/17/20 Dicyclomine HCl 10 mg PO Q4H PRN 02/17/20 Hydrocodone/Acetaminophen [Hydrocodone-Acetamin 7.5-325] 1 tab PO TID 02/17/20 Topiramate 25 mg PO BID 02/17/20 Trazodone HCl 300 mg PO QHS PRN 02/17/20 Valsartan/Hydrochlorothiazide [Valsartan-Hctz 80-12.5 mg Tab] 1 tab PO DAILY 02/17/20 cycloBENZAPRine HCl [Flexeril] 10 mg PO TID PRN PRN #30 tab 02/19/20 The following prescriptions were given: cycloBENZAPRine HCl [Flexeril] 10 mg PO TID PRN PRN #30 tab PRN Reason: muscle spasm Transmission Status: Pending to [employer] #30 Primary Care Physician: Harish Luis Chi, MD [Primary Care Provider] - Please follow up with your Primary Care Physician in: in 2 weeks Test Results: Test results from this visit will be discussed in further detail at your follow- up appointment, if applicable. Please Follow Up With: Isabelle Seo MD When: in 2 weeks for chronic back pain
--- NOTE | 2020-02-19 08:35 | PCM.DC.SUM ---
Discharge Date and Diagnosis - Problem List Patient Problems: Active and Suspected Problems (Last Reviewed 07/31/18 @ 11:06 by Ewa Raygoza) COVID-19 (Acute) Generalized weakness (Acute) Debility (Acute) Date of Admission: 02/17/20 Date of Discharge: 02/19/20 - Primary Discharge Diagnosis Acute Problems: Active Problems (Last Reviewed 07/31/18 @ 11:06 by Ewa Raygoza) Generalized weakness (Acute) Debility (Acute) - Secondary Discharge Diagnosis Chronic Problems: Chronic Problems (Last Reviewed 07/31/18 @ 11:06 by Ewa Raygoza) Scoliosis of lumbar spine (Chronic) Scoliosis (Chronic) Palpitations (Chronic) GERD (Chronic) Chronic lower back pain (Chronic) Has electrical stimulator Migraine (Chronic) Depression (Chronic) Hospital Course and Treatment Summary of Care Provided: [] This 69-year-old female, poor informant was admitted for generalized weakness and debility. #1 COVID-19 infection ruled out. False positive COVID-19 rapid antigen test: Patient denies any recent exposure or attending crowd or gathering. COVID-19 PCR test ordered. ID consult for further opinion. Empirically patient was put on dexamethasone and remdesivir which is discontinued when COVID-19 PCR came negative. #2 generalized weakness with chronic back pain for 15 years and other chronic multiple problem including depression: PT and OT. Patient follows Dr. Seo and gets lumbar/epidural pain injections. Patient has [place] at home therefore prescription not given. Prescription for Flexeril sent to the patient's pharmacy. Advised to follow-up with pain management in 2 weeks. #3 essential hypertension: Antihypertensive meds on hold as patient was hypotensive yesterday. Patient blood pressure is in normal range. #4 Dehydration: Corrected. #5 GERD #6 hypokalemia-corrected, repeat K4.0. #7 chronic depression/anxiety- home medications continued #8 chronic migraines-patient is on Topamax Discharge medication reconciliation done. Discharge follow-up instructions completed. Discharge process discussed with the patient and all questions were answered to patient's satisfaction. Total time spent, exact 35 minutes on discharge meds reconciliation, examination, coordination of care with nurses and ancillary staff, review of imaging and blood test and discussion with the patient on follow-up instructions Patient Problems: Active and Suspected Problems (Last Reviewed 07/31/18 @ 11:06 by Ewa Raygoza) COVID-19 (Acute) Generalized weakness (Acute) Debility (Acute) Subjective: Follow-up for back pain. Objective: Her back pain is improved and is on baseline. Patient has chronic back pain for 15 years. No fever or chills. Heart rate in 50s. Blood pressure, respiratory rate and pulse ox in normal range, 96% on room air. Physical exam General: Alert, Oriented x3, Cooperative HEENT: Atraumatic, PERRLA, EOMI, Normocephalic Oral: No Gingival or Mucosal Lesions/ Ulcerations Neck: Supple, No JVD, Negative Carotid Bruits Lungs: Air entry equal in bilateral lung bases. No crepitation/rhonchi Cardiovascular: Regular rate, Regular Rhythm, Normal S1, Normal S2, No murmurs Abdomen: Bowel Sounds Present, Soft, Non Tender, Non-Distended : No renal angle tenderness. No suprapubic tenderness. Extremities: No edema, Capillary Refill Less than 3 Seconds Skin: No rashes, No breakdown Musculoskeletal: No Tenderness to Palpation of Joints or Extremities Neurological: Cranial nerves II-XII grossly intact, Deep Tendon Reflexes 2+/4 and Symmetrical, Neuro grossly intact Psych/Mental Status: Normal Affect, Appropriate. - Physical Exam Vitals/I&O's: Vital Signs Temp Pulse Resp BP Pulse Ox 97.5 F L 59 L 17 126/69 H 94 02/19/20 02:58 02/19/20 02:58 02/19/20 02:58 02/19/20 02:58 02/19/20 02:58 Oxygen Flow Rate (L/min) 1 Oxygen Delivery Method Room Air Weight: 122 lb 12.76 oz Body Mass Index (BMI) 21.7 Intake and Output for Last 24 Hours 02/17/20 02/18/20 02/19/20 23:59 23:59 23:59 Intake Total 2550 / 2550 3025 / 3025 1307.5 / 1307.5 Output Total 900 / 900 300 / 300 Balance 1650 / 1650 2725 / 2725 1307.5 / 1307.5 Microbiology Past 72 Hours 02/17/20 12:40 Mucosa - Nose SARS-CoV-2 Antigen (Rapid) - Final SARS-CoV-2 (COVID 19) Laboratory Results 02/18/20 15:20: COVID-19 (ANTIONE) Not Detected 02/19/20 08:00: WBC 7.4, RBC 3.57 L, Hgb 11.1 L, Hct 34.1 L, MCV 95.5, MCH 31.1, MCHC 32.6, RDW Std Deviation 49.4 H, RDW Coeff of Mehnaz 14.0, Plt Count 265, MPV 10.2 02/19/20 08:00: D-Dimer Quant (PE/DVT) Pending 02/19/20 08:00: Sodium Pending, Potassium Pending, Chloride Pending, Carbon Dioxide Pending, Anion Gap Pending, BUN Pending, Creatinine Pending, Est GFR (MDRD) Af Amer Pending, Est GFR (MDRD) Non-Af Pending, BUN/Creatinine Ratio Pending, Glucose Pending, Calcium Pending, Total Bilirubin Pending, AST Pending, ALT Pending, Alkaline Phosphatase Pending, Total Protein Pending, Albumin Pending Current Medications Acetaminophen (Acetaminophen 325 Mg Tablet) 650 mg PO Q6H PRN PRN PRN Reason: Pain Score 1-10/Temp > 100.7 F Last Admin: 02/18/20 04:28 Dose: 650 mg Documented by: Hydrocodone Bitart/Acetaminophen (Hydrocodone/Apap 7.5-325/15ml 15 Ml Udc) 15 ml PO TID [facility] Last Admin: 02/19/20 05:47 Dose: 15 ml Documented by: Buspirone HCl (Buspirone 5 Mg Tablet) 7.5 mg PO BID [facility] Last Admin: 02/18/20 20:04 Dose: 7.5 mg Documented by: Citalopram Hydrobromide (Citalopram 20 Mg Tablet) 20 mg PO DAILY [facility] Last Admin: 02/18/20 10:06 Dose: 20 mg Documented by: Clonazepam (Clonazepam 1 Mg Tablet) 1 mg PO TID [facility] Last Admin: 02/19/20 05:46 Dose: 1 mg Documented by: Enoxaparin Sodium (Enoxaparin 40 Mg/0.4 Ml Syringe) 40 mg SC DAILY [facility] Last Admin: 02/18/20 12:14 Dose: 40 mg Documented by: Sodium Chloride () 1,000 mls @ 150 mls/hr IV .Q6H40M [facility] Last Admin: 02/19/20 03:05 Dose: 150 mls/hr Documented by: Ondansetron HCl (Ondansetron 4 Mg/2 Ml Vial) 4 mg IV Q8H PRN PRN PRN Reason: NAUSEA/VOMITING Sodium Chloride (0.9% Saline Lock 10 Ml Syringe) 10 - 40 ml IV UD PRN PRN Reason: SALINE FLUSH Topiramate (Topiramate 25 Mg Tablet) 25 mg PO BID [facility] Last Admin: 02/18/20 20:04 Dose: 25 mg Documented by: Trazodone HCl (Trazodone 100 Mg Tablet) 300 mg PO QHS PRN PRN Reason: SLEEP Last Admin: 02/18/20 22:20 Dose: 300 mg Documented by: Discharge Activity: May Not Drive Weight Bearing Status: Weight bearing as tolerated Call your doctor if you observe: Fever of 101 or Higher, Numbness or Tingling, Change in Color, Inability to have a bowel movement, Shortness of breath, Dizziness, Fainting spells, Swelling in the ankles, Chest pain, Prolonged hiccoughing, Increased palpitations (irregular heartbeat), Calf discomfort, Uncontrolled pain Home Medications: Medications to take at Discharge Metoclopramide [Reglan] 10 mg PO 4X/DAY PRN #20 tab 01/25/20 Buspirone HCl 7.5 mg PO BID 02/17/20 Citalopram [Celexa] 20 mg PO DAILY 02/17/20 Clonazepam 1 mg PO TID 02/17/20 Dicyclomine HCl 10 mg PO Q4H PRN 02/17/20 Hydrocodone/Acetaminophen [Hydrocodone-Acetamin 7.5-325] 1 tab PO TID 02/17/20 Topiramate 25 mg PO BID 02/17/20 Trazodone HCl 300 mg PO QHS PRN 02/17/20 Valsartan/Hydrochlorothiazide [Valsartan-Hctz 80-12.5 mg Tab] 1 tab PO DAILY 02/17/20 cycloBENZAPRine HCl [Flexeril] 10 mg PO TID PRN PRN #30 tab 02/19/20 Following Prescriptions Were Given to Patient: cycloBENZAPRine HCl [Flexeril] 10 mg PO TID PRN PRN #30 tab PRN Reason: muscle spasm Transmission Status: Received by [employer] #30 Primary Care Physician: Harish Luis Chi, MD [Primary Care Provider] - Please follow up with your Primary Care Physician in: in 2 weeks Please Follow Up With: Isabelle Seo MD When: in 2 weeks for chronic back pain Medical Necessity - Tobacco Use Smoking Status: Current every day smoker Tobacco Use: Vapor Meaningful Use Info Meaningful Use Diagnoses (Choose all that apply): None applicable Inpatient E&M: [id number] [facility]
[2020-02-19 08:41] LABS: ALB/GLOB Ratio 0.9 RATIO (0.9-2.4); AST(SGOT) 11 U/L (15-37); Alanine Aminotransfer ALT/SGPT 14 U/L (13-56); Albumin, Serum 2.8 g/dL (3.2-5.0); Alkaline Phosphatase 72 U/L (45-117); Anion Gap 6 (5-15); BUN 12 mg/dL (7-18); BUN/Creat Ratio 14.3 RATIO (10-20); Calcium,Total 8.4 mg/dL (8.5-10.1); Chloride 114 mmol/L (98-107); Creatinine, Serum 0.84 mg/dL (0.55-1.02); EST Glomerular Filtration Rate 71 mL/min (>60); Est Glom Filt Rate - Afr Amer 86 mL/min (>60); Estimated Creatinine Clearance 52.29 ml/min; Globulin 3.2 g/dL (2.2-4.2); Glucose 108 mg/dL (74-106); Potassium 3.8 mmol/L (3.5-5.1); Sodium Level 142 mmol/L (136-145)
[2020-02-19] MEDS: busPIRone 5 MG Tablet 7.5 MG PO (08:50)
[2020-02-19] MEDS: Citalopram 20 MG Tablet PO (08:50)
[2020-02-19] MEDS: Enoxaparin 40 MG/0.4 ML Syringe SC (08:51)
[2020-02-19] MEDS: Topiramate 25 MG Tablet PO (08:51)
[2020-02-19 08:56] VITALS: BP 140/77; PULSE 58; RESP 18; TEMP 36.9; O2SAT 98
[2020-02-19 09:00] VITALS: BP 140/77; PULSE 58; RESP 18; TEMP 36.9; O2SAT 96
[2020-02-19 09:08] LABS: D-Dimer Quantitative (DVT/PE) <= 0.27 FEU/ug/m (0.27-0.49)
== END 2020-02-19 10:10 | disposition home or self-care (01) | DRG 948 ==
LOC: ED 12:21 → MS2 14:42
PROVIDERS: Internal Medicine Infectious Disease; Admitting Provider Internal Medicine; Emergency Provider Emergency Medicine; PCP Family Medicine Geriatric Medicine; Visit Provider Internal Medicine
DX: R53.1 Weakness (principal); N17.9 Acute kidney failure, unspecified; R53.81 Other malaise; E86.0 Dehydration; E87.6 Hypokalemia; I10 Essential (primary) hypertension; I95.9 Hypotension, unspecified; M41.9 Scoliosis, unspecified; M54.5 Low back pain; G89.29 Other chronic pain; K21.9 Gastro-esophageal reflux disease without esophagitis; G43.909 Migraine, unspecified, not intractable, without status migrainosus; F32.9 Major depressive disorder, single episode, unspecified; F41.9 Anxiety disorder, unspecified; F17.290 Nicotine dependence, other tobacco product, uncomplicated; R29.6 Repeated falls; R09.02 Hypoxemia; Z98.1 Arthrodesis status; Z91.5 Personal history of self-harm; Z79.899 Other long term (current) drug therapy; Z86.73 Personal history of transient ischemic attack (TIA), and cerebral infarction without residual deficits
CPT/HCPCS: 70450; 71045; 73564; 80048; 80053; 80320; 81001; 83605; 85025; 85027; 85379; 85610; 87040; 87426; 87635; 93005; 97162; 97166; 97802; 99285; J7030; J7050; P9612; A4216; G0480; U0002

== ENCOUNTER → 2020-06-24 13:45 | Outpatient (CLI) | payer MEDICARE, SELFPAY ==
[2020-02-17 15:14] VITALS: BMI 21.7
[2020-06-24 16:32] LABS: Absolute Lymphocyte Count 1.65 X10^3/uL (0.83-4.51); Absolute Neutrophil Count 3.6 X10^3/uL (2.0-7.7); Basophil# 0.05 X10^3/uL; Basophil% 0.9 % (0-1); Eosinophil# 0.03 X10^3/uL; Eosinophils% 0.5 % (0-5); Hematocrit 38.8 % (37-47); Hemoglobin 12.7 g/dL (12.0-15.0); Lymphocyte # 1.65 X10^3/ul (4.0); Lymphocyte % 28.4 % (19-41); Mean Corp Hgb Conc 32.7 g/dL (32-36); Mean Corpuscular Hgb 32.3 pg (27.0-32.0); Mean Corpuscular Volume 98.7 fL (81-99); Mean Platelet Vol. 9.8 fl (6.2-12.0); Monocyte# 0.49 X10^3/uL; Monocyte% 8.4 % (0-10); NRBC Flagged by Analyzer 0 % (0-5); Neutrophil # 3.59 X10^3/uL (2.7-7.7); Neutrophil % 61.6 % (47-70); Platelet Count 291 K/mm3 (150-450); RBC Distribution Width CV 12.7 % (11.6-14.6); RBC Distribution Width SD 45.9 fl (35.1-43.9); Red Blood Count 3.93 M/mm3 (4.2-5.4); White Blood Count 5.8 K/mm3 (4.4-11.0)
[2020-06-24 17:03] LABS: Vitamin D,25 Hydroxy 25.5 ng/mL
[2020-06-24 17:07] LABS: ALB/GLOB Ratio 1.1 RATIO (0.9-2.4); AST(SGOT) 18 U/L (15-37); Alanine Aminotransfer ALT/SGPT 16 U/L (13-56); Albumin, Serum 3.6 g/dL (3.2-5.0); Alkaline Phosphatase 84 U/L (45-117); Anion Gap 6 (5-15); BUN 7 mg/dL (7-18); BUN/Creat Ratio 6.9 RATIO (10-20); Calcium,Total 9.1 mg/dL (8.5-10.1); Chloride 98 mmol/L (98-107); Creatinine, Serum 1.02 mg/dL (0.55-1.02); EST Glomerular Filtration Rate 57 mL/min (>60); Est Glom Filt Rate - Afr Amer 69 mL/min (>60); Globulin 3.4 g/dL (2.2-4.2); Glucose 104 mg/dL (74-106); Potassium 3.9 mmol/L (3.5-5.1); Sodium Level 131 mmol/L (136-145); Thyroid Stim Hormone (TSH) 0.49 uIU/mL (0.358-3.74)
== END ==
PROVIDERS: PCP Family Medicine Geriatric Medicine; Visit Provider Family Medicine Geriatric Medicine
DX: I10 Essential (primary) hypertension (principal); E55.9 Vitamin D deficiency, unspecified
CPT/HCPCS: 36415; 80053; 82306; 84443; 85025

== ENCOUNTER → 2020-12-27 14:07 | Outpatient (CLI) | payer MEDICARE, SELFPAY ==
[2020-12-27 17:02] LABS: Absolute Lymphocyte Count 1.65 X10^3/uL (0.83-4.51); Absolute Neutrophil Count 1.9 X10^3/uL (2.0-7.7); Basophil# 0.04 X10^3/uL; Eosinophil# 0.04 X10^3/uL; Hematocrit 37.7 % (37-47); Hemoglobin 12.4 g/dL (12.0-15.0); Lymphocyte # 1.65 X10^3/ul (0.83-4.51); Lymphocyte % 40.5 % (19-41); Mean Corp Hgb Conc 32.9 g/dL (32-36); Mean Corpuscular Hgb 31.3 pg (27.0-32.0); Mean Corpuscular Volume 95.2 fL (81-99); Monocyte# 0.44 X10^3/uL; Monocyte% 10.8 % (0-10); NRBC Flagged by Analyzer 0 % (0-5); Neutrophil # 1.89 X10^3/uL (2.7-7.7); Neutrophil % 46.5 % (47-70); Platelet Count 288 K/mm3 (150-450); RBC Distribution Width CV 13.2 % (11.6-14.6); RBC Distribution Width SD 46.4 fl (35.1-43.9); Red Blood Count 3.96 M/mm3 (4.2-5.4); White Blood Count 4.1 K/mm3 (4.4-11.0)
[2020-12-27 17:07] LABS: Vitamin D,25 Hydroxy 24.2 ng/mL
[2020-12-27 17:19] LABS: ALB/GLOB Ratio 0.9 RATIO (0.9-2.4); AST(SGOT) 17 U/L (15-37); Alanine Aminotransfer ALT/SGPT 19 U/L (13-56); Albumin, Serum 3.2 g/dL (3.2-5.0); Alkaline Phosphatase 85 U/L (45-117); Anion Gap 8 (5-15); BUN 7 mg/dL (7-18); BUN/Creat Ratio 7.5 RATIO (10-20); Calcium,Total 8.3 mg/dL (8.5-10.1); Chloride 107 mmol/L (98-107); Creatinine, Serum 0.94 mg/dL (0.55-1.02); EST Glomerular Filtration Rate 63 mL/min (>60); Est Glom Filt Rate - Afr Amer 76 mL/min (>60); Globulin 3.5 g/dL (2.2-4.2); Glucose 99 mg/dL (74-106); Potassium 3.8 mmol/L (3.5-5.1); Protein, Total 6.7 g/dL (6.4-8.2); Sodium Level 140 mmol/L (136-145); Thyroid Stim Hormone (TSH) 0.73 uIU/mL (0.358-3.74)
== END ==
PROVIDERS: PCP Family Medicine Geriatric Medicine; Visit Provider Family Medicine Geriatric Medicine
DX: I10 Essential (primary) hypertension (principal); E55.9 Vitamin D deficiency, unspecified
CPT/HCPCS: 36415; 80053; 82306; 84443; 85025

== ENCOUNTER 2021-06-27 12:59 | Outpatient (CLI) | payer MEDICARE, SELFPAY ==
[2021-06-27 17:12] LABS: Absolute Lymphocyte Count 1.71 X10^3/uL (0.83-4.51); Absolute Neutrophil Count 1.2 X10^3/uL (2.0-7.7); Basophil# 0.04 X10^3/uL; Basophil% 1.2 % (0-1); Eosinophil# 0.03 X10^3/uL; Eosinophils% 0.9 % (0-5); Hematocrit 36.3 % (37-47); Hemoglobin 12.2 g/dL (12.0-15.0); Lymphocyte # 1.71 X10^3/ul (0.83-4.51); Lymphocyte % 51.7 % (19-41); Mean Corp Hgb Conc 33.6 g/dL (32-36); Mean Corpuscular Hgb 31.9 pg (27.0-32.0); Mean Platelet Vol. 10.5 fl (6.2-12.0); Monocyte# 0.28 X10^3/uL; Monocyte% 8.5 % (0-10); NRBC Flagged by Analyzer 0.6 % (0-5); Neutrophil # 1.24 X10^3/uL (2.7-7.7); Neutrophil % 37.4 % (47-70); Platelet Count 282 K/mm3 (150-450); RBC Distribution Width CV 12.9 % (11.6-14.6); RBC Distribution Width SD 44.8 fl (35.1-43.9); Red Blood Count 3.82 M/mm3 (4.2-5.4); White Blood Count 3.3 K/mm3 (4.4-11.0)
[2021-06-27 17:22] LABS: Vitamin D,25 Hydroxy 29.8 ng/mL
[2021-06-27 17:33] LABS: AST(SGOT) 24 U/L (15-37); Alanine Aminotransfer ALT/SGPT 27 U/L (13-56); Albumin, Serum 3.2 g/dL (3.2-5.0); Alkaline Phosphatase 74 U/L (45-117); Anion Gap 6 (5-15); BUN 7 mg/dL (7-18); BUN/Creat Ratio 6.4 RATIO (10-20); Calcium,Total 8.6 mg/dL (8.5-10.1); Chloride 106 mmol/L (98-107); EST Glomerular Filtration Rate 52 mL/min (>60); Est Glom Filt Rate - Afr Amer 63 mL/min (>60); Globulin 3.2 g/dL (2.2-4.2); Glucose 117 mg/dL (74-106); Potassium 3.7 mmol/L (3.5-5.1); Protein, Total 6.4 g/dL (6.4-8.2); Sodium Level 137 mmol/L (136-145)
== END 2021-06-27 23:59 | disposition home or self-care (01) ==
LOC: POLAB3 13:00
PROVIDERS: PCP Family Medicine Geriatric Medicine; Visit Provider Family Medicine Geriatric Medicine
DX: E55.9 Vitamin D deficiency, unspecified (principal); I10 Essential (primary) hypertension
CPT/HCPCS: 36415; 80053; 82306; 84443; 85025

== ENCOUNTER → 2021-12-01 | Outpatient (CLI) | payer MEDICARE, SELFPAY | END | disposition home or self-care (01) | LOC: PSN 08:50 | PROVIDERS: PCP Family Medicine Geriatric Medicine; Referring Provider Family Medicine Geriatric Medicine; Visit Provider Family Medicine Geriatric Medicine | DX: R68.83 Chills (without fever) (principal) | CPT/HCPCS: 87635; 87804; 87807; U0003; U0005 ==

== ENCOUNTER → 2021-12-28 | Outpatient (CLI) | payer MEDICARE, SELFPAY ==
[2021-12-28 17:25] LABS: Absolute Lymphocyte Count 1.82 X10^3/uL (0.83-4.51); Absolute Neutrophil Count 1.7 X10^3/uL (2.0-7.7); Basophil# 0.04 X10^3/uL; Eosinophil# 0.07 X10^3/uL; Eosinophils% 1.7 % (0-5); Hematocrit 34.2 % (37-47); Hemoglobin 11.2 g/dL (12.0-15.0); Lymphocyte # 1.82 X10^3/ul (0.83-4.51); Lymphocyte % 45.2 % (19-41); Mean Corp Hgb Conc 32.7 g/dL (32-36); Mean Corpuscular Hgb 31.5 pg (27.0-32.0); Mean Corpuscular Volume 96.1 fL (81-99); Mean Platelet Vol. 11.1 fl (6.2-12.0); Monocyte# 0.35 X10^3/uL; Monocyte% 8.7 % (0-10); NRBC Flagged by Analyzer 0 % (0-5); Neutrophil # 1.74 X10^3/uL (2.7-7.7); Neutrophil % 43.2 % (47-70); Platelet Count 247 K/mm3 (150-450); RBC Distribution Width CV 13.2 % (11.6-14.6); RBC Distribution Width SD 46.9 fl (35.1-43.9); Red Blood Count 3.56 M/mm3 (4.2-5.4)
[2021-12-28 17:44] LABS: Vitamin D,25 Hydroxy 45.5 ng/mL
[2021-12-28 17:51] LABS: ALB/GLOB Ratio 1.1 RATIO (0.9-2.4); AST(SGOT) 13 U/L (15-37); Alanine Aminotransfer ALT/SGPT 14 U/L (13-56); Albumin, Serum 3.2 g/dL (3.2-5.0); Alkaline Phosphatase 68 U/L (45-117); Anion Gap 4 (5-15); BUN 9 mg/dL (7-18); BUN/Creat Ratio 8.5 RATIO (10-20); Calcium,Total 8.8 mg/dL (8.5-10.1); Chloride 112 mmol/L (98-107); Creatinine, Serum 1.06 mg/dL (0.55-1.02); EST Glomerular Filtration Rate 54 mL/min (>60); Est Glom Filt Rate - Afr Amer 66 mL/min (>60); Glucose 97 mg/dL (74-106); Potassium 3.7 mmol/L (3.5-5.1); Protein, Total 6.2 g/dL (6.4-8.2); Sodium Level 141 mmol/L (136-145); Thyroid Stim Hormone (TSH) 0.74 uIU/mL (0.358-3.74)
== END | disposition home or self-care (01) ==
LOC: POLAB3 15:02
PROVIDERS: PCP Family Medicine Geriatric Medicine; Visit Provider Family Medicine Geriatric Medicine
DX: E55.9 Vitamin D deficiency, unspecified (principal); I10 Essential (primary) hypertension
CPT/HCPCS: 36415; 80053; 82306; 84443; 85025

== ENCOUNTER → 2022-03-31 | Outpatient (CLI) | payer MEDICARE, SELFPAY | END | disposition home or self-care (01) | LOC: PSN 12:39 | PROVIDERS: PCP Family Medicine Geriatric Medicine; Visit Provider Family Medicine Geriatric Medicine | DX: R68.83 Chills (without fever) (principal) | CPT/HCPCS: 87635; 87804; 87807; C9803; U0003; U0005 ==

== ENCOUNTER → 2022-04-10 | Outpatient (CLI) | payer MEDICARE, SELFPAY | END | disposition home or self-care (01) | LOC: PSN 09:47 | PROVIDERS: PCP Family Medicine Geriatric Medicine; Referring Provider Family Medicine Geriatric Medicine; Visit Provider Family Medicine Geriatric Medicine | DX: R68.83 Chills (without fever) (principal) | CPT/HCPCS: 87635; 87804; 87807; C9803; U0003; U0005 ==

== ENCOUNTER 2022-04-27 05:48 | Day surgery (SDC) | payer MEDICARE, SELFPAY ==
--- NOTE | 2022-04-10 21:00 | HP.PCM_ITS ---
History and Physical History and Physical [facility] Patient Name: Jacque David : 1950 From:? JEANA DAVE PA-C? DATE OF SURGERY:? 04/27/2022 SCHEDULED PROCEDURE:? Explantation of spinal cord stimulator generator battery HISTORY OF PRESENT ILLNESS: Preoperative history and physical exam was performed on April 10, 2022.? This is a 71-year-old female who is been having chronic low back pain radiating into the right lower extremity.? Pain has been present for many years.? She has previous history of back surgery in 2008.? Her symptoms persisted and patient had a spinal cord stimulator placed at [facility].? She had a subsequent revision of the lead stimulator in 2013.? She reports that her spinal cord stimulator does not effectively control her pain.? She gets pain throughout the thoracolumbar region radiating into the right lower extremity.? She also gets significant tenderness to palpation over the area where the spinal cord stimulator is placed.? She denies any loss of bowel or bladder control.? She has been managed in chronic pain management and treated with previous injections with no relief.? Patient takes tramadol as needed for pain control.? Patient has medical history pertinent for hypertension, gastroesophageal reflux disease, depression, hypercholesterolemia and mitral valve prolapse.? She has had previou s heart catheterization.? She currently denies any chest pain or shortness of breath.? She does complain recently of upper respiratory infection in which she has managed by her primary care physician.? She reports no antibiotics at this time.? After discussion with Dr. Demond Manley, the patient does wish to proceed with explantation of spinal cord stimulator generator battery.? We are obtaining surgical clearance from the primary care physician due to the recent illness.? We will undergo preoperative lab work and EKG which chest x-ray. REVIEW OF SYSTEMS: ROS: Const: Reports change in appetite, anxiety, weight change, hard of hearing, but denies anorexia and fever,hard, vision problems. CV: Denies chest pain, heart murmur, irregular heartbeat and peripheral vascular disease. Resp: Denies asthma, cough, pneumonia, sleep apnea, SOB, tuberculosis and wheezing. GI: Reports dysphagia, but denies constipation, diarrhea, heartburn, nausea, bloody stools and vomiting. : Genital: reports irregular menstrual periods. Urinary: denies incontinence. Musculo: Reports trouble walking and weakness, but denies leg swelling and limp. Skin: Denies Raynaud's, history of shingles and tattoo. Neuro: Reports numbness/tingling but denies ambulatory dysfunction, dizziness and tremor. Psych: Reports anxiety, depression and stress, but denies insomnia and mental illness. Jonathan/Lymph: Reports bleeding/bruising tendency, but denies anemia and past transfusion. Reviewed and updated. PAST MEDICAL HISTORY: PMH: Medical Problems: High Cholesteral, Mitral Valve Prolapse, High Blood Pressure, Acid Reflux, Depression Accidents: None Surgical Hx: Carpal Tunnel - BILATERAL, [facility] Section - X 2 D & C - X2 Heart Cath. Laminectomy - (2008) [facility] Spinalcord Stimulator - 2013, lead 2014 Anesthesia Complications: None Assistive Devices: Glasses, Hearing Aid, Cane, Dentures Reviewed and updated. 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 Reviewed, no changes. VITALS: Ht: 62 Wt: 107lb Wt k.535 BMI: 19.6 BP: 110/64 Pulse: 94 Resp: 16 T: 98.6 T: 37.0C Pain Level: 8 O2SatR: 98 ALLERGIES: PCN Vicodin Penicillin? MEDICATIONS: Tramadol HCL 50 mg 1 tablet every 6 hours as needed for pain, Topiramate 100 mg twice dailyl, Metoprolol 100 mg 1 PO q day, Omeprazole 40 mg once daily, Gabapentin 400 mg one tab four times daily, Clonazepam 1 mg daily, Doxepin HCL 100 mg daily PRE-OP EXAM:? General appearance:NORMAL? ? ? Other: Eyes: Conjunctivae and lids: NORMAL? Pupils: ERR Ears, Nose, Mouth, and Throat: NORMAL? Other: Inspection of lips, teeth and gums: NORMAL? ?Other: Neck: Examination of neck: no masses noted. Respiratory: Assessment of respiratory effort: NORMAL? ?Other: ?Auscultation of lungs: clear to auscultation no wheezes, rhonchi or rales. Cardiovascular:? Auscultation of heart: regular rate and rhythm, positive systolic murmurs PHYSICAL EXAMINATION: Patient presents today in a wheelchair but is able to walk with ambulatory assistance.? Patient has tenderness to palpation over the posterior aspect near the superior iliac spine.? The generator is palpable.? Previous incision is well healed with no signs of erythema.? Range of motion was limited due to patient in wheelchair. IMPRESSION: 1.? Chronic low back pain 2.? Hypercholesterolemia 3.? Mitral valve prolapse 4.? Hypertension 5.? Gastroesophageal reflux disease 6.? Depression 7.? History of previous heart catheterization PLAN: Dr. Demond Manley did discuss and review with the patient all treatment options including surgical versus nonsurgical options.? Patient does wish to proceed with the above-stated procedure.? Potential risks, benefits, and complications of the procedure were discussed in detail including but not limited to , infection, nerve and blood vessel damage, persistent pain, numbness, tingling, paresthesias, blood clot, pulmonary embolism, and requirement for possible further surgery.? The patient expressed full understanding and has no further questions for the doctor.? Patient does agree to proceed with the above-stated procedure and has signed the surgery consent form.? Patient was instructed to continue to use her tramadol at home as needed for postoperative pain control.? Recommend extra strength Tylenol 500 mg 2 tablets 3 times daily. We discussed the current risks associated with COVID 19.? This does include the risk of exposure while in the hospital.? Patient was reassured local hospitals have low infection rates and are taking all necessary precautions to avoid exposure to patients.? In addition, we discussed strategies that can be used to help limit exposure including those that limit the patient's time in the hospital.? Also using strategies to limit the patient's need for continued inpatient services after being discharged from the hospital.? Patient was notified that we will need to comply with any screening or testing the hospital wishes to perform or that surgery may be delayed for any positive results. This dictation was created using voice recognition software. Phonetic and/or grammatical errors may exist. ___? I have re-examined the patient.? There are no clinical changes since date of exam. ___? See progress notes for changes. ___? Dictated on admission Date: ? ? ?Time: Signature:
--- NOTE | 2022-04-24 09:26 | EKG12_ITS ---
Test Reason : PRE OP Blood Pressure : / mmHG Vent. Rate : 089 BPM Atrial Rate : 089 BPM P-R Int : 128 ms QRS Dur : 070 ms QT Int : 352 ms P-R-T Axes : 071 158 073 degrees QTc Int : 428 ms Normal sinus rhythm Normal ECG Confirmed by REFUGIO GUIDO, KAITLIN ([id number]), staff editor GEGE COSTELLO ([id number]) on 04/24/2022 1:22:57 PM Referred By: SUSSY Confirmed By:KAITLIN HUFF MD
--- NOTE | 2022-04-24 09:39 | RAD_ITS ---
STUDY: X-RAY CHEST REASON FOR EXAM: Female, 71 years old. Preop for spinal stimulator removal TECHNIQUE: PA and lateral views of the chest. COMPARISON: 02/17/2020 FINDINGS: Satisfactory appearance of the neurostimulator over the thoracic spine. Lungs are hyperexpanded with chronic interstitial changes. No organized infiltrate or effusion. There is no demonstrated pleural abnormality. Normal size heart. Normal mediastinum and renea. Normal visualized pulmonary arteries. Normal visualized aortic arch and descending thoracic aorta. There are diffuse degenerative changes of the visualized thoracic spine. There is degenerative osteoarthritis of the bilateral shoulders. There is no demonstrated abnormality of the visualized soft tissue structures of the upper abdomen. RAD/Chest PA and Lateral IMPRESSION: Hyperexpanded lungs with chronic interstitial changes, no superimposed acute pulmonary process Electronically Signed: Yamil Ulloa MD at 16:55 EST ,
[2022-04-24 10:17] LABS: Hematocrit 38.6 % (37-47); Mean Corp Hgb Conc 31.1 g/dL (32-36); Mean Corpuscular Hgb 31.1 pg (27.0-32.0); Mean Platelet Vol. 9.6 fl (6.2-12.0); Platelet Count 408 K/mm3 (150-450); RBC Distribution Width CV 14.3 % (11.6-14.6); RBC Distribution Width SD 53.3 fl (35.1-43.9); Red Blood Count 3.86 M/mm3 (4.2-5.4); White Blood Count 4.4 K/mm3 (4.4-11.0)
[2022-04-24 10:30] LABS: Anion Gap 5 (5-15); BUN 9 mg/dL (7-18); BUN/Creat Ratio 9.7 RATIO (10-20); Calcium,Total 8.8 mg/dL (8.5-10.1); Chloride 113 mmol/L (98-107); Creatinine, Serum 0.93 mg/dL (0.55-1.02); EST Glomerular Filtration Rate 63 mL/min (>60); Est Glom Filt Rate - Afr Amer 77 mL/min (>60); Glucose 100 mg/dL (74-106); Potassium 3.8 mmol/L (3.5-5.1); Sodium Level 143 mmol/L (136-145)
[2022-04-24 10:31] LABS: Prothrombin Time (Protime)PT. 12.8 SECONDS (11.7-14.9)
[2022-04-24 10:32] LABS: Partial Thromboplast Time 33.1 Seconds (24.1-36.2)
[2022-04-27] VITALS (7 sets, daily range): BP systolic 88–119; BP diastolic 62–75; PULSE 77–84; RESP 16; TEMP 36.4–37.2; O2SAT 96–99; BMI 18.3
--- NOTE | 2022-04-27 06:30 | RAD_ITS ---
STUDY: X-RAY - LUMBAR SPINE REASON FOR EXAM: Female, 71 years old. EXPLANTATION OF SPINAL CORD STIMULATOR GENERATOR BATTERY TECHNIQUE: 3 view(s) of the lumbar spine were obtained. COMPARISON: None FINDINGS: Intraoperative imaging provided for removal of the spinal cord stimulator device. RAD/Lumbar Spine 2 or 3 Views IMPRESSION: Intraoperative imaging provided for removal of the spinal cord stimulator device. Electronically Signed: Rafael Sherwood MD at 14:24 EST ,
[2022-04-27] MEDS: Lactated Ringers 1,000 ML 15 ML IV (06:39)
--- NOTE | 2022-04-27 07:20 | PCM.OPRPT ---
Problems Associated Problem List Diagnoses (1) Pain from implanted hardware: Report of Operation Date of Procedure: 04/27/22 Pre-Operative Diagnosis: 1. Painful hardware, spinal cord stimulator generator/battery Post-Operative Diagnosis: 1. Painful hardware, spinal cord stimulator generator/battery Surgery/Procedure Performed:: 1. Explantation of spinal cord stimulator generator/battery 2. Primary closure Description of Surgical Findings:: The patient is a 71-year-old female with painful hardware of her spinal cord stimulator generator/battery. She has failed conservative treatment to include medication physical therapy and injections. The patient is opted for operative intervention understanding the risk to include but not limited to infection, bleeding, damage to nerves arteries and veins, continued pain, need for further surgery, deep vein thrombosis, pulmonary embolism, heart attack, risk of stroke or The patient was identified in the preoperative holding area. There she received preoperative IV antibiotics, clindamycin, and was then transferred to the operative suite. Once in the operative suite after the appropriate amount of sedation was given by anesthesia she was transferred to the operative table in the prone position. All bony prominences were padded accordingly. The previous spinal cord stimulator generator/battery incision site was noted. The incision was remade with a 15 blade scalpel. No fluid, pus, or necrotic tissue were encountered. The Nevro battery/generator was identified, the leads were cut and the battery/generator was removed. The incision was thoroughly irrigated. The incision was then closed with #1 Vicryl for fascia, 2-0 Vicryl for subcutaneous and 2-0 nylon for skin. She was given a sterile dressing with 4 x 4's ABD and tape. She tolerated the procedure well. She was taken to the PACU without incident Type of Anesthesia: Local and MAC Specimen's removed: Nevro spinal cord stimulator generator/battery Estimated Blood Loss (mL): 1 cc Fluids Replaced: 500 cc Complications None
--- NOTE | 2022-04-27 07:20 | PCM.PN.ORT ---
Subjective Subjective The patient was seen and examined in the PACU. She is resting comfortably. She has no complaints. Objective Data Objective Data Vital Signs: Vital Signs Temp Pulse Resp BP Pulse Ox O2 Del Method 99.0 F 84 16 119/75 96 Room Air 04/27/22 06:26 04/27/22 06:26 04/27/22 06:26 04/27/22 06:26 04/27/22 06:26 04/27/22 06:26 Oxygen Delivery Method Room Air Weight: 103 lb 9.876 oz Body Mass Index (BMI) 18.3 Lab / Micro Data Result Diagrams: 04/24/22 09:58 04/24/22 09:58 Physical Exam Const alert, oriented x3 and no apparent distress General Appearance: cooperative, comfortable and well kempt HEENT normocephalic and head/scalp atraumatic Eyes EOMs intact bilaterally and conjunctivae normal Neck full ROM General: normal visual inspection Chest inspection of chest normal and palpation of chest normal Resp normal respiratory effort and normal air movement Effort and Inspection: able to speak in complete sentences Cardio regular rate, regular rhythm and peripheral pulses 2+ throughout GI soft to palpation, non-tender and non-distended Back/Spine Back/Spine Narrative: Dressing clean dry and intact Cervical Spine: cervical ROM normal Thoracic Spine / Upper Back: normal to inspection Lumbar Spine / Lower Back: normal to inspection Extremity normal to inspection, full ROM, normal capillary refill, no clubbing, cyanosis or edema and no calf tenderness Skin no rashes or lesions noted General Skin Exam: no breakdown Neuro oriented x3, CN's II-XII intact bilaterally, moves all extremities, no focal motor deficits, no sensory deficits noted and deep tendon reflexes 2+ bilaterally Motor Exam: strength 5/5 throughout Assessment & Plan Assessment/Plan (1) Pain from implanted hardware: PLAN: Plan Okay to discharge home See discharge instructions Follow-up with Dr. Manley as scheduled
[2022-04-27] MEDS: Cefazolin 2 GM in 0.9% Normal Saline 100 ML IV (07:45)
[2022-04-27] MEDS: Lidocaine 1% (30 ml sdv) 30 ML Vial (07:56)
== END 2022-04-27 09:31 | disposition home or self-care (01) ==
LOC: SDC 05:51 → AC 05:53
PROVIDERS: PCP Family Medicine Geriatric Medicine; Referring Provider Orthopaedic Surgery; Visit Provider Orthopaedic Surgery
PROC: (CPT 63655; principal; 2022-04-27 07:00)
DX: T85.840A Pain due to nervous system prosthetic devices, implants and grafts, initial encounter (principal); X58.XXXA Exposure to other specified factors, initial encounter; G89.29 Other chronic pain; I34.1 Nonrheumatic mitral (valve) prolapse; I10 Essential (primary) hypertension; E78.00 Pure hypercholesterolemia, unspecified; F32.A Depression, unspecified; F41.9 Anxiety disorder, unspecified; K21.9 Gastro-esophageal reflux disease without esophagitis; Z98.1 Arthrodesis status; Z79.899 Other long term (current) drug therapy; Z87.891 Personal history of nicotine dependence
CPT/HCPCS: 63688; 00300; 36415; 71046; 72100; 76000; 80048; 85027; 85610; 85730; 93005; J7120; J2405

== ENCOUNTER → 2022-06-28 | Outpatient (CLI) | payer MEDICARE, SELFPAY | END | disposition home or self-care (01) | LOC: PSN 11:28 | PROVIDERS: PCP Family Medicine Geriatric Medicine; Referring Provider Family Medicine Geriatric Medicine; Visit Provider Family Medicine Geriatric Medicine | DX: R68.83 Chills (without fever) (principal) | CPT/HCPCS: 87635; 87804; 87807; C9803; U0003; U0005 ==

== ENCOUNTER → 2022-07-06 | Outpatient (CLI) | payer MEDICARE, SELFPAY ==
--- NOTE | 2022-07-06 16:47 | CT_ITS ---
STUDY: CT BRAIN WITHOUT CONTRAST REASON FOR EXAM: Female, 72 years old. CLOSED HEAD INJURY RADIATION DOSAGE (If Supplied By Facility): CTDIvol = ( 44.99 ) mGy, DLP = ( 796.11 ) mGycm TECHNIQUE: Transaxial CT imaging of the brain was performed without administration of intravenous contrast material. Individualized dose optimization techniques were used for this CT. COMPARISON: February 17, 2020 FINDINGS: Normal soft tissue structures. Normal calvarium. There is mild cerebral atrophy with widening of the extra-axial spaces and ventricular dilatation. Normal white matter tracts of the cerebral hemispheres. Normal basal ganglia and thalami. Normal brainstem. There is mild cerebellar atrophy. There is no intracranial hemorrhage. There are no findings of an acute ischemic infarction. Normal visualized paranasal sinuses. CT/Brain/Head without Contrast IMPRESSION: Chronic involutional changes without evidence of acute intracranial or calvarial abnormality. No major interval change. Electronically Signed: Wei Alvarenga DO at 17:04 EDT ,
[2022-07-06 17:31] LABS: Absolute Lymphocyte Count 1.65 X10^3/uL (0.83-4.51); Absolute Neutrophil Count 2.3 X10^3/uL (2.0-7.7); Basophil# 0.05 X10^3/uL; Basophil% 1.1 % (0-1); Eosinophil# 0.13 X10^3/uL; Eosinophils% 2.8 % (0-5); Hematocrit 42.8 % (37-47); Hemoglobin 13.3 g/dL (12.0-15.0); Lymphocyte # 1.65 X10^3/ul (0.83-4.51); Lymphocyte % 35.8 % (19-41); Mean Corp Hgb Conc 31.1 g/dL (32-36); Mean Corpuscular Hgb 30.6 pg (27.0-32.0); Mean Corpuscular Volume 98.4 fL (81-99); Mean Platelet Vol. 9.7 fl (6.2-12.0); Monocyte# 0.43 X10^3/uL; Monocyte% 9.3 % (0-10); NRBC Flagged by Analyzer 0 % (0-5); Neutrophil # 2.34 X10^3/uL (2.7-7.7); Neutrophil % 50.8 % (47-70); Platelet Count 351 K/mm3 (150-450); RBC Distribution Width CV 13.9 % (11.6-14.6); RBC Distribution Width SD 50.4 fl (35.1-43.9); Red Blood Count 4.35 M/mm3 (4.2-5.4); White Blood Count 4.6 K/mm3 (4.4-11.0)
[2022-07-06 18:16] LABS: ALB/GLOB Ratio 0.8 RATIO (0.9-2.4); AST(SGOT) 17 U/L (15-37); Alanine Aminotransfer ALT/SGPT 17 U/L (13-56); Albumin, Serum 3.1 g/dL (3.2-5.0); Alkaline Phosphatase 102 U/L (45-117); Anion Gap 2 (5-15); BUN 8 mg/dL (7-18); BUN/Creat Ratio 8.6 RATIO (10-20); Calcium,Total 8.9 mg/dL (8.5-10.1); Chloride 112 mmol/L (98-107); Creatinine, Serum 0.94 mg/dL (0.55-1.02); EST Glomerular Filtration Rate 63 mL/min (>60); Est Glom Filt Rate - Afr Amer 76 mL/min (>60); Glucose 97 mg/dL (74-106); Potassium 3.8 mmol/L (3.5-5.1); Protein, Total 7.1 g/dL (6.4-8.2); Sodium Level 141 mmol/L (136-145); Thyroid Stim Hormone (TSH) 0.47 uIU/mL (0.358-3.74)
== END | disposition home or self-care (01) ==
PROVIDERS: PCP Family Medicine Geriatric Medicine; Referring Provider Family Medicine Geriatric Medicine; Visit Provider Family Medicine Geriatric Medicine
DX: E55.9 Vitamin D deficiency, unspecified (principal); R53.83 Other fatigue; S09.90XA Unspecified injury of head, initial encounter
CPT/HCPCS: 36415; 70450; 80053; 82306; 84443; 85025

== ENCOUNTER 2022-07-29 07:42 | Inpatient (IN) | payer MEDICARE, SELFPAY ==
[2022-07-29] VITALS (11 sets, daily range): BP systolic 101–131; BP diastolic 60–78; PULSE 83–106; RESP 16–28; TEMP 36.2–37.4; O2SAT 87–98; BMI 24.2; BMI 21.4
--- NOTE | 2022-07-29 07:53 | EKG12_ITS ---
Test Reason : sob Blood Pressure : / mmHG Vent. Rate : 090 BPM Atrial Rate : 090 BPM P-R Int : 140 ms QRS Dur : 076 ms QT Int : 364 ms P-R-T Axes : 052 064 028 degrees QTc Int : 445 ms Normal sinus rhythm Low voltage QRS Borderline ECG Confirmed by JODY GUIDO, NOEMY ([id number]), story editor GEGE COSTELLO ([id number]) on 07/31/2022 11:24:22 A M Referred By: Confirmed By:RICHAR VERA MD
--- NOTE | 2022-07-29 07:56 | ED.VIS.DYS ---
HPI History of Present Illness Chief Complaint: Shortness of Breath Detail of Chief Complaint: Shortness of breath Informant: patient and spouse/S.O. Narrative Narrative: Patient presents with shortness of breath that is been ongoing for close to a month. Over the last 3 days she has noticed increased dyspnea and cough and congestion. Patient complains of exertional dyspnea. She denies chest pain. Cough productive of sputum that is yellow and green at times. On EMS arrival her O2 sat on room air was 80%. Patient does not have history of CHF or COPD. She does vape. She denies recent travel or surgery. No history of PE or DVT. She denies swelling in her legs or weight gain. [facility] Medical History (Updated 07/29/22 @ 09:[address] Dimitry Roslaes DO) Ambulates with cane Anxiety Arthritis Back pain Carpal tunnel syndrome on both sides Depression Former smoker Gastric reflux High cholesterol History of stress test Hypertension Migraine headache Post-menopausal Shortness of breath on exertion Uses wheelchair Walker as ambulation aid Wears dentures Wears glasses Wears hearing aid Home Medications Topiramate 100 mg PO BID migraines 02/17/20 [History Last Taken 04/26/22] buspirone 7.5 mg tablet 7.5 mg PO PRN PRN MENTAL HEALTH 02/17/20 [History Last Taken 04/26/22] clonazepam 1 mg tablet 1 mg PO TID anxiety 02/17/20 [History Last Taken 04/26/22] trazodone 150 mg tablet 150 mg PO QHS 02/17/20 [History Last Taken 04/26/22] doxepin 150 mg capsule 150 mg PO QHS 04/20/22 [History Last Taken 04/26/22] gabapentin 400 mg capsule 400 mg PO Q6H 04/20/22 [History Last Taken 04/26/22] omeprazole 20 mg capsule,delayed release 20 mg PO DAILY 04/20/22 [History Last Taken 04/27/22] Allergy/AdvReac Type Severity Reaction Status Date / Time hydrocodone [From Vicodin] Allergy NERVOUS, Verified 07/29/22 07:48 JITTERY Penicillins Allergy Rash Verified 07/29/22 07:48 Family History Other CVA (cerebral vascular accident) Cancer Hypertension Surgical History (Updated 04/20/22 @ 10:20 by Brigitte Connell) History of 2 sections History of cardiac catheterization History of lumbar laminectomy Hx of dilation and curettage Hx of surgical procedure Social History (Updated 08/01/18 @ 16:[address] Mary Becerra, [place]) Smoking Status: Former smoker alcohol intake: never substance use type: does not use what type of physical activity do you participate in: none ROS ROS ED Review of Systems ROS Unobtainable: other Constitutional Constitutional ED: Reports lethargy; Denies chills, fever(s), sweats or weight loss Eyes Eyes: Denies blurry vision, change in vision or diplopia ENT ENT ED: Denies rhinorrhea or sore throat Cardiovascular Cardiovascular: Denies chest pain, orthopnea or racing heartbeat Respiratory/Chest Respiratory/Chest: Reports cough, dyspnea, dyspnea on exertion and sputum; Denies orthopnea Gastrointestinal Gastrointestinal: Denies abdominal pain, diarrhea, nausea or vomiting Genitourinary Genitourinary ED: Denies dysuria, hematuria or urinary frequency Musculoskeletal Musculoskeletal: Denies arthralgias, back pain, myalgias or neck pain Integumentary Denies abscess, Abrasions or rash Neurologic Neurologic: Denies headache(s) or weakness Psychiatric Psychiatric: Denies anxiety, depression or suicidal thoughts Endocrine Endocrinology: Denies polydipsia, polyphagia or polyuria Hematologic/Lymphatic Hematologic/Lymphatic: Denies easy bleeding, easy bruising or lymphadenopathy Allergic/Immunologic Allergic/Immunologic ED: Denies mouth swelling, tongue swelling or urticaria EXAM Physical Exam Const Vital Signs: 07/29/22 07:43 07/29/22 07:51 07/29/22 08:15 Temperature 98.7 F 98.7 F Temperature Source Oral Oral Pulse Rate 92 91 90 Respiratory Rate 28 H 26 H 20 H Respiratory Effort Respiratory Pattern Tachypnea Blood Pressure 117/67 117/67 Blood Pressure Mean 83 83 Pulse Ox 87 92 Oxygen Delivery Method Room Air Nasal Cannula Oxygen Flow Rate (L/min) 4 07/29/22 08:14 07/29/22 08:47 Temperature 98.8 F Temperature Source Temporal Pulse Rate 89 Respiratory Rate 24 H Respiratory Effort Short of Breath Respiratory Pattern Tachypnea Blood Pressure 114/71 Blood Pressure Mean 85 Pulse Ox 96 Oxygen Delivery Method Nasal Cannula Oxygen Flow Rate (L/min) 4 Positive well nourished and well developed General Appearance ED: well developed and NAD HEENT Reports TM's clear and moist mucous membranes normocephalic and atraumatic; Negative for trauma or tenderness Tympanic Membrane ED: Yes TM's clear Eyes PERRL and EOMs intact bilaterally General Eye ED: Negative for pale conjunctiva or scleral icterus Neck no lymphadenopathy, supple and no JVD General: Negative for tenderness Chest Wall inspection of chest normal and palpation of chest normal Chest: Negative for tenderness Resp Resp Narrative: Patient tachypneic with some mild conversational dyspnea. She has Rales in both bases with coarse rhonchi throughout. Chest some faint expiratory wheezes. No accessory muscle use or retractions. Effort and Inspection: Negative for respiratory distress or pain with movement Auscultation: Negative for rhonchi, wheezes or diminished lung sounds Cardio regular rate, regular rhythm, S1 normal heart sound, S2 normal heart sound and no murmurs Peripheral Pulses: pulses 2+ throughout GI normal to inspection, nondistended, normoactive bowel sounds, soft to palpation, non-tender, non-distended and no masses Back/Spine no CVA tenderness and no thoracic nor lumbar tenderness Extremity Extremity Narrative: Trace edema left lower extremity compared to right lower extremity. General Extremety ED: Negative for edema General Extremity: Negative for edema Neuro oriented x3, CN's II-XII intact bilaterally, no sensory deficits noted and gait normal Sensorium / Orientation: awake, alert, oriented to person, oriented to place and oriented to time Motor Exam: strength 5/5 throughout and strength abnormal Psych mental status grossly normal Skin no rashes or lesions noted and no wounds MDM MDM MDM Narrative Medical decision making narrative: Patient presents with cough and shortness of breath with hypoxemia. In the differential would be pneumonia versus PE versus CHF versus acute coronary syndrome. Patient had an IV line established on arrival and she was placed on a monitor and storage bin tender. I did give her a DuoNeb aerosol. CBC with differential showed a white count of 8.2 with a hemoglobin of 12 and hematocrit of 38.7 and platelet count of 296. D-dimer was normal when corrected for age at 0.62 therefore feel PE is ruled out. Chemistries were unremarkable. Troponin was normal. BNP was normal. Chest x-ray showed bilateral infiltrates. Patient was positive for influenza B and negative for COVID. Blood cultures ordered and patient started on Levaquin IV. Case discussed with hospitalist to evaluate patient for admission. I suspect she may have a post influenza pneumonia. Lab Data Attestation: I reviewed the patient's lab results. Labs: Laboratory Results - last 24 hr 07/29/22 07/29/22 07/29/22 07:49 07:49 07:49 WBC 8.2 RBC 3.91 L Hgb 12.0 Hct 38.7 MCV 99.0 MCH 30.7 MCHC 31.0 L RDW Std Deviation 52.6 H RDW Coeff of Mehnaz 14.6 Plt Count 296 MPV 10.5 Immature Gran % (Auto) 0.200 Neut % (Auto) 81.7 H Lymph % (Auto) 8.9 L Garrett % (Auto) 6.3 Eos % (Auto) 2.2 Baso % (Auto) 0.7 Absolute Neuts (auto) 6.7 Absolute Lymphs (auto) 0.73 L Nucleated RBC % 0 D-Dimer Quant (PE/DVT) 0.62 H* Sodium 142 Potassium 3.9 Chloride 110 H Carbon Dioxide 27.0 Anion Gap 5 BUN 14 Creatinine 1.08 H Estim Creat Clear Calc 38.95 Est GFR (MDRD) Af Amer 64 Est GFR (MDRD) Non-Af 53 L BUN/Creatinine Ratio 13.0 Glucose 123 H Lactic Acid Calcium 8.7 Troponin I High Sens 3 B-Natriuretic Peptide 07/29/22 07/29/22 07:49 08:38 WBC RBC Hgb Hct MCV MCH MCHC RDW Std Deviation RDW Coeff of Mehnaz Plt Count MPV Immature Gran % (Auto) Neut % (Auto) Lymph % (Auto) [place] % (Auto) Eos % (Auto) Baso % (Auto) Absolute Neuts (auto) Absolute Lymphs (auto) Nucleated RBC % D-Dimer Quant (PE/DVT) Sodium Potassium Chloride Carbon Dioxide Anion Gap BUN Creatinine Estim Creat Clear Calc Est GFR (MDRD) Af Amer Est GFR (MDRD) Non-Af BUN/Creatinine Ratio Glucose Lactic Acid 1.7 Calcium Troponin I High Sens B-Natriuretic Peptide 36.5 Radiography Chest X-Ray - ED: 1 View Diagnostic Testing: Clinical Impression(s) from Imaging Studies Chest X-Ray 07/29/22 08:15 IMPRESSION: Increased bibasilar opacities, concerning for pneumonia. Recommend follow-up to resolution. Electronically Signed: Jael Rosas MD at 8:48 EDT , 1 view chest ray obtained interpreted by myself as bilateral lower lobe infiltrates. Radiology in agreement. EKG Initial EKG: Attestation: I personally reviewed and interpreted this EKG as follows: Comments: Sinus rhythm with a rate of 90 bpm with no acute ST segment changes Discharge Plan Triage Chief Complaint: Shortness of Breath ED Provider: Dimitry Rosales Dx/Rx/DC Orders Clinical Impression: Respiratory failure, Influenza, Pneumonia, Hypoxemia Prescriptions: No Action clonazepam 1 MG tablet 1 mg PO TID buspirone 7.5 MG tablet 7.5 mg PO PRN PRN (Reason: MENTAL HEALTH) Topiramate 25 MG tablet 100 mg PO BID trazodone 150 MG tablet 150 mg PO QHS omeprazole 20 mg capsule,delayed release(DR/EC) 20 mg PO DAILY doxepin 150 mg capsule 150 mg PO QHS Label Comments: TAKE 1 CAPSULE BY MOUTH AT BEDTIME gabapentin 400 mg capsule 400 mg PO Q6H Primary Care Provider: Harish Luis Chi Referrals: Harish Luis Chi, MD [Primary Care Provider] - Disposition Disposition: Acute Care Hospital [facility]
[2022-07-29] MEDS: Ipratropium/Albuterol Sulfate 3 ML AMPUL.NEB INHALATION ×2 (08:03→20:26)
--- NOTE | 2022-07-29 08:15 | RAD_ITS ---
HISTORY: dyspnea. TECHNIQUE: XR Chest 1 View. COMPARISON: 04/24/2022. FINDINGS: CARDIOMEDIASTINAL BORDERS: Cardiac silhouette and mediastinal contours exaggerated secondary to patient rotation. LUNGS: Increased bibasilar opacities most confluent in the right lung base. PLEURA: No pleural effusion or pneumothorax seen. OSSEOUS STRUCTURES: Generalized osteopenia. Thoracic spinal electrode noted. OTHER: Gaseous distention of bowel in the left upper quadrant. RAD/Chest 1 View (Portable) IMPRESSION: Increased bibasilar opacities, concerning for pneumonia. Recommend follow-up to resolution. Electronically Signed: Jael Rosas MD at 8:48 EDT ,
[2022-07-29 08:29] LABS: Absolute Lymphocyte Count 0.73 X10^3/uL (0.83-4.51); Absolute Neutrophil Count 6.7 X10^3/uL (2.0-7.7); Basophil# 0.06 X10^3/uL; Basophil% 0.7 % (0-1); Eosinophil# 0.18 X10^3/uL; Eosinophils% 2.2 % (0-5); Hematocrit 38.7 % (37-47); Lymphocyte # 0.73 X10^3/ul (0.83-4.51); Lymphocyte % 8.9 % (19-41); Mean Corpuscular Hgb 30.7 pg (27.0-32.0); Mean Platelet Vol. 10.5 fl (6.2-12.0); Monocyte# 0.52 X10^3/uL; Monocyte% 6.3 % (0-10); NRBC Flagged by Analyzer 0 % (0-5); Neutrophil # 6.71 X10^3/uL (2.7-7.7); Neutrophil % 81.7 % (47-70); Platelet Count 296 K/mm3 (150-450); RBC Distribution Width CV 14.6 % (11.6-14.6); RBC Distribution Width SD 52.6 fl (35.1-43.9); Red Blood Count 3.91 M/mm3 (4.2-5.4); White Blood Count 8.2 K/mm3 (4.4-11.0)
[2022-07-29 08:35] LABS: Anion Gap 5 (5-15); BUN 14 mg/dL (7-18); Calcium,Total 8.7 mg/dL (8.5-10.1); Chloride 110 mmol/L (98-107); Creatinine, Serum 1.08 mg/dL (0.55-1.02); EST Glomerular Filtration Rate 53 mL/min (>60); Est Glom Filt Rate - Afr Amer 64 mL/min (>60); Estimated Creatinine Clearance 38.95 ml/min; Glucose 123 mg/dL (74-106); Potassium 3.9 mmol/L (3.5-5.1); Sodium Level 142 mmol/L (136-145); Troponin-I HS 3 pg/mL (3.0-54.0)
[2022-07-29] MEDS: levoFLOXacin IV 750 MG/150 ML BAG 100 MG IV (08:53)
[2022-07-29 08:54] LABS: BNP,B-Type NATRIURETIC PEPTIDE 36.5 pg/mL (0-100)
[2022-07-29] MEDS: Oseltamivir Phosphate 75 MG Capsule PO (08:57)
[2022-07-29 09:10] LABS: Lactic Acid 1.7 mmol/L (0.4-1.9)
[2022-07-29 09:13] LABS: D-Dimer Quantitative (DVT/PE) 0.62 FEU/ug/m (0.27-0.49)
--- NOTE | 2022-07-29 09:18 | ED.RN ---
paged hospitalist for dr nguyen
--- NOTE | 2022-07-29 09:21 | ED.RN ---
Dr Lundberg called back
[2022-07-29] MEDS: oxyCODONE 5 MG Tablet PO ×2 (11:23→17:18)
[2022-07-29] MEDS: Acetaminophen 325 MG Tablet 650 MG PO (11:23)
[2022-07-29] MEDS: Pantoprazole Sodium 20 MG Tablet PO (11:23)
[2022-07-29] MEDS: Gabapentin 400 MG Capsule PO ×3 (11:24→23:24)
[2022-07-29] MEDS: Topiramate 100 MG Tablet PO ×2 (11:24→21:52)
[2022-07-29] MEDS: Oseltamivir Phosphate 30 MG Capsule PO ×2 (12:33→21:51)
[2022-07-29] MEDS: clonazePAM 1 MG Tablet PO ×2 (13:30→21:52)
--- NOTE | 2022-07-29 15:33 | HP.PCM.HOS_ITS ---
HPI - General General Date of Admission: 07/29/22 Date of Service: 07/29/22 Chief Complaint: Shortness of breath HPI Narrative CAROL ZARAGOZA, is a 72 F who presents to the emergency room at [facility] with a 2 to 3-day history of shortness of breath. Patient denies any productive cough, she denies any fevers or chills. Patient denies any muscle aches. Work-up in the emergency room included labs which revealed a normal white blood cell count, hemoglobin was also normal, creatinine was minimally elevated at 1.08. Glucose was 123. Beta natruretic peptide was normal at 36.5, patient's chest x-ray showed bibasilar opacities. Patient required 4 L of oxygen via nasal cannula to maintain her pulse ox above 90%. Influenza B test was positive, COVID test was negative. Patient was given IV Levaquin in the emergency room, she was admitted to PCU for bilateral pneumonia with a backdrop of influenza B with hypoxia. She will be treated with IV antibiotics, Tamiflu, and aerosol treatments, pulse ox will be monitored. [facility] Medical History (Updated 07/29/22 @ 09:[address] Dimitry Rosales, ) Ambulates with cane Anxiety Arthritis Back pain Carpal tunnel syndrome on both sides Depression Former smoker Gastric reflux High cholesterol History of stress test Hypertension Migraine headache Post-menopausal Shortness of breath on exertion Uses wheelchair Walker as ambulation aid Wears dentures Wears glasses Wears hearing aid Home Medications Topiramate 25 mg PO BID migraines 02/17/20 [History Last Taken 04/26/22] buspirone 7.5 mg tablet 7.5 mg PO BID Check with primary doctor 02/17/20 [History Last Taken 04/26/22] clonazepam 1 mg tablet 1 mg PO TID anxiety 02/17/20 [History Last Taken 04/26/22] trazodone 150 mg tablet 150 mg PO QHS 02/17/20 [History Last Taken 04/26/22] doxepin 150 mg capsule 150 mg PO QHS Check with primary doctor 04/20/22 [History Last Taken 04/26/22] gabapentin 400 mg capsule 400 mg PO Q6H Check with primary doctor 04/20/22 [History Last Taken 04/26/22] omeprazole 20 mg capsule,delayed release 20 mg PO DAILY Check with primary doctor 04/20/22 [History Last Taken 04/27/22] Allergy/AdvReac Type Severity Reaction Status Date / Time hydrocodone [From Vicodin] Allergy NERVOUS, Verified 07/29/22 07:48 JITTERY Penicillins Allergy Rash Verified 07/29/22 07:48 Family History Other CVA (cerebral vascular accident) Cancer Hypertension Surgical History (Updated 04/20/22 @ 10:20 by Brigitte Connell) History of 2 sections History of cardiac catheterization History of lumbar laminectomy Hx of dilation and curettage Hx of surgical procedure Social History (Updated 08/01/18 @ 16:[address] Mary Becerra, [place]) Smoking Status: Former smoker alcohol intake: never substance use type: does not use what type of physical activity do you participate in: none ROS Constitutional Constitutional: Reports fatigue and weakness; Denies anorexia, change in weight, chills, fever(s) or night sweats Eyes Eyes: Denies blurry vision, change in vision, discharge from eye(s) or eye pain Cardiovascular Cardiovascular: Reports dyspnea on exertion; Denies chest pain, claudication, edema or palpitations Respiratory/Chest Respiratory/Chest: Reports dyspnea, shortness of breath at rest and shortness of breath with exertion; Denies cough or hemoptysis Gastrointestinal Gastrointestinal: Denies abdominal pain, coffee ground emesis, constipation, diarrhea, hematemesis, hematochezia, melena, nausea or vomiting Genitourinary Genitourinary: Denies difficulty urinating, dysuria, hematuria, urinary frequency, urinary hesitancy, urinary incontinence or urinary urgency Musculoskeletal Musculoskeletal: Denies back pain, joint pain, joint stiffness, joint swelling, myalgias or neck pain Neurologic Neurologic: Denies abnormal gait, abnormal speech, dizziness, focal weakness, headache(s), loss of vision, numbness, other visual disturbances, paresthesias, syncope or tingling Psychiatric Psychiatric: Denies anxiety, cognitive impairment, depression, irritability, mood swings or suicidal ideation Endocrine Endocrinology: Denies change in body appearance, cold intolerance, excessive sweating, heat intolerance, polydipsia or polyuria Hematologic/Lymphatic Hematologic/Lymphatic: Denies none, anemia, easy bleeding, easy bruising or lymphadenopathy Allergic/Immunologic Allergic/Immunologic: Denies rhinitis, urticaria, eczemia or asthma Vital Signs Vital Signs Vital Signs: 07/29/22 07:43 07/29/22 07:51 07/29/22 08:15 Temperature 98.7 F 98.7 F Temperature Source Oral Oral Pulse Rate 92 91 90 Respiratory Rate 28 H 26 H 20 H Respiratory Effort Respiratory Depth Respiratory Pattern Tachypnea Blood Pressure 117/67 117/67 Blood Pressure Mean 83 83 Blood Pressure Source Blood Pressure Position Blood Pressure Location Pulse Ox 87 92 Oxygen Delivery Method Room Air Nasal Cannula Oxygen Flow Rate (L/min) 4 07/29/22 08:14 07/29/22 08:47 07/29/22 09:48 Temperature 98.8 F 97.2 F L Temperature Source Temporal Temporal Pulse Rate 89 90 Respiratory Rate 24 H 20 H Respiratory Effort Short of Breath Respiratory Depth Respiratory Pattern Tachypnea Blood Pressure 114/71 112/78 Blood Pressure Mean 85 89 Blood Pressure Source Blood Pressure Position Blood Pressure Location Pulse Ox 96 95 Oxygen Delivery Method Nasal Cannula Nasal Cannula Oxygen Flow Rate (L/min) 4 4 07/29/22 11:04 07/29/22 11:10 07/29/22 12:19 Temperature 98.9 F Temperature Source Oral Pulse Rate 89 Respiratory Rate 18 Respiratory Effort Normal Non-Labored Respiratory Depth Normal Respiratory Pattern Normal Blood Pressure 131/78 H Blood Pressure Mean 95 Blood Pressure Source Monitor Blood Pressure Position Semi-Fowlers Blood Pressure Location Right Arm Pulse Ox 92 Oxygen Delivery Method Nasal Cannula Nasal Cannula Oxygen Flow Rate (L/min) 4 4 4 07/29/22 12:20 07/29/22 13:40 07/29/22 13:40 Temperature Temperature Source Pulse Rate 83 Respiratory Rate 16 Respiratory Effort Respiratory Depth Respiratory Pattern Normal Blood Pressure Blood Pressure Mean Blood Pressure Source Blood Pressure Position Blood Pressure Location Pulse Ox 91 Oxygen Delivery Method Nasal Cannula Oxygen Flow Rate (L/min) 4 4 07/29/22 14:27 Temperature 97.9 F Temperature Source Oral Pulse Rate 89 Respiratory Rate 18 Respiratory Effort Respiratory Depth Respiratory Pattern Blood Pressure 101/60 Blood Pressure Mean 73 Blood Pressure Source Blood Pressure Position Blood Pressure Location Pulse Ox 92 Oxygen Delivery Method Nasal Cannula Oxygen Flow Rate (L/min) 4 Weight Weight: 54.885 kg Body Mass Index (BMI) 21.4 Physical Exam Const alert, oriented x3, no apparent distress and healthy appearing General Appearance: cooperative, well kempt and well developed Orientation / Consciousness: awake, oriented to person, oriented to place and oriented to time HEENT normocephalic, head/scalp atraumatic, hearing grossly normal bilaterally and moist oral mucous membranes Eyes PERRL, EOMs intact bilaterally and conjunctivae normal Neck supple, no JVD, thyroid normal and no carotid bruits General: trachea midline Resp normal respiratory effort, no retractions and no use of accessory muscles Resp Narrative: Scattered expiratory rhonchi bilaterally Auscultation: rhonchi; Negative for rales or wheezes Cardio regular rate, regular rhythm, S1 normal heart sound, S2 normal heart sound, no murmurs, no rub and no gallops GI normal to inspection, nondistended, normoactive bowel sounds, soft to palpation, non-tender and non-distended Extremity no clubbing, cyanosis or edema Skin no rashes or lesions noted General Skin Exam: no breakdown Neuro oriented x3, CN's II-XII intact bilaterally, moves all extremities, no focal motor deficits and no sensory deficits noted Sensorium / Orientation: awake and alert Speech: speech normal Psych affect normal Results Lab / Micro Data Result Diagrams: 07/29/22 07:49 07/29/22 07:49 Labs: Laboratory Results - last 24 hr 07/29/22 07:49: WBC 8.2, RBC 3.91 L, Hgb 12.0, Hct 38.7, MCV 99.0, MCH 30.7, MCHC 31.0 L, RDW Std Deviation 52.6 H, RDW Coeff of Mehnaz 14.6, Plt Count 296, MPV 10.5, Immature Gran % (Auto) 0.200, Neut % (Auto) 81.7 H, Lymph % (Auto) 8.9 L, [place] % (Auto) 6.3, Eos % (Auto) 2.2, Baso % (Auto) 0.7, Absolute Neuts (auto) 6.7, Absolute Lymphs (auto) 0.73 L, Nucleated RBC % 0 07/29/22 07:49: D-Dimer Quant (PE/DVT) 0.62 H* 07/29/22 07:49: Sodium 142, Potassium 3.9, Chloride 110 H, Carbon Dioxide 27.0, Anion Gap 5, BUN 14, Creatinine 1.08 H, Estim Creat Clear Calc 38.95, Est GFR (MDRD) Af Amer 64, Est GFR (MDRD) Non-Af 53 L, BUN/Creatinine Ratio 13.0, Glucos e 123 H, Calcium 8.7, Troponin I High Sens 3 07/29/22 07:49: B-Natriuretic Peptide 36.5 07/29/22 08:38: Lactic Acid 1.7 Micro: Microbiology 07/29/22 07:46 Nasal Secretion SARS-CoV-2 & FLU Antigen (Rapid) - Final Influenzae B Radiology Impression Chest X-Ray 07/29/22 08:15 IMPRESSION: Increased bibasilar opacities, concerning for pneumonia. Recommend follow-up to resolution. Electronically Signed: Jael Rosas MD at 8:48 EDT , Assessment & Plan Assessment/Plan (1) Respiratory failure: PLAN: Plan 1. Acute bilateral community-acquired pneumonia-suspected to be bacterial in nature, on a backdrop of influenza B infection-patient will be admitted to PCU, she will be placed on IV Levaquin, she will receive aerosol treatments, urine antigen was ordered for strep pneumoniae and Legionella. Patient will be given Tamiflu, repeat chest x-ray will be obtained tomorrow. #2 acute hypoxic respiratory failure-patient presented with increased respiratory rate at 28 and hypoxia on room air, she required 4 L of oxygen via nasal cannula to keep her pulse ox above 90, she had tachypnea and mild conversational dyspnea and the emergency room during the time of her exam according to the emergency room physician. 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
--- NOTE | 2022-07-29 15:37 | CASEMGMT ---
RN MARIA ELENA Face to Face with patient for initial transition planning/care coordination assessment. RN CM introduced self and role at [facility]. Patient lying in bed, alert and oriented, at bedside. Patient willing to participate in assessment and is able to answer all questions appropriately. Care providers, pharmacy, and demographics verified. Patient wishes to discharge home, denies need for home health at this time. Patient states she has no further needs or concerns at this time. CM to follow for discharge planning needs that may arise. PCP: Toby Specialists: none Preferred Pharmacy: [facility] Insurance: RELEASEIF Prescription Benefit: yes Living Will/HPOA: none LNOK: Living Arrangements: Patient lives with in a 2 story home with bed and bath on first floor. Patient states she is independent at home. Transportation: self, DME/HHC: Patient shower chair, cane, walker, grab bars at home. Will monitor for home oxygen. CM reviewed DME agencies with patient and prefers [employer]. No previous HHC or SNF. Disposition Plan: Patient to discharge home with family support and follow-up plans in place. Brea CHARLES, RN, CM
[2022-07-29] MEDS: traZODone 50 MG Tablet 150 MG PO (21:51)
[2022-07-29] MEDS: DOXEPIN HCL 50 MG CAPSULE 150 MG PO (21:51)
[2022-07-29] MEDS: Heparin Injection (Vial) 5,000 UNIT/ML VIAL 5000 UNIT SC (21:52)
[2022-07-29] MEDS: 0.9% Saline Lock 10 ML Syringe IV (21:52)
--- NOTE | 2022-07-29 23:15 | NURSING ---
2230: Bladder scanned Pt for >1873. Straight cath performed and received 2200mL of clear yellow urine with normal to no odor. RN aware. Specimen obtained.
[2022-07-30] VITALS (13 sets, daily range): BP systolic 82–101; BP diastolic 50–71; PULSE 82–94; RESP 16–18; TEMP 36.9–37.3; O2SAT 91–97
--- NOTE | 2022-07-30 05:55 | RAD_ITS ---
STUDY: X-RAY CHEST REASON FOR EXAM: Female, 72 years old. Pneumonia TECHNIQUE: Single AP portable view of the chest. COMPARISON: July 29, 2022 chest x-ray FINDINGS: There are persistent patchy bilateral lower lobe infiltrates. Normal size heart. Normal mediastinum and renea. Normal visualized pulmonary arteries. Normal visualized aortic arch and descending thoracic aorta. No change in the spinal catheter. Normal visualized ribs, clavicles, and shoulders. There is no demonstrated abnormality of the visualized soft tissue structures of the upper abdomen. RAD/Chest 1 View (Portable) IMPRESSION: Persistent bilateral lower lobe infiltrates. Electronically Signed: Bekah Jc MD at 6:05 EDT Reading Location ID and State: [facility] / [place] Tel , Service support ,
[2022-07-30 06:30] LABS: Absolute Lymphocyte Count 1.32 X10^3/uL (0.83-4.51); Basophil# 0.03 X10^3/uL; Basophil% 0.4 % (0-1); Eosinophil# 0.15 X10^3/uL; Eosinophils% 2.1 % (0-5); Hematocrit 32.7 % (37-47); Hemoglobin 10.4 g/dL (12.0-15.0); Lymphocyte # 1.32 X10^3/ul (0.83-4.51); Lymphocyte % 18.5 % (19-41); Mean Corp Hgb Conc 31.8 g/dL (32-36); Mean Corpuscular Hgb 31.1 pg (27.0-32.0); Mean Corpuscular Volume 97.9 fL (81-99); Mean Platelet Vol. 10.3 fl (6.2-12.0); Monocyte# 0.58 X10^3/uL; Monocyte% 8.1 % (0-10); NRBC Flagged by Analyzer 0 % (0-5); Neutrophil # 5.02 X10^3/uL (2.7-7.7); Neutrophil % 70.5 % (47-70); Platelet Count 286 K/mm3 (150-450); RBC Distribution Width CV 14.5 % (11.6-14.6); RBC Distribution Width SD 52.1 fl (35.1-43.9); Red Blood Count 3.34 M/mm3 (4.2-5.4); White Blood Count 7.1 K/mm3 (4.4-11.0)
[2022-07-30] MEDS: clonazePAM 1 MG Tablet PO ×3 (06:47→21:58)
[2022-07-30] MEDS: Gabapentin 400 MG Capsule PO ×3 (06:47→17:43)
[2022-07-30 07:16] LABS: Anion Gap 6 (5-15); BUN 14 mg/dL (7-18); BUN/Creat Ratio 13.9 RATIO (10-20); Calcium,Total 8.4 mg/dL (8.5-10.1); Chloride 108 mmol/L (98-107); Creatinine, Serum 1.01 mg/dL (0.55-1.02); EST Glomerular Filtration Rate 57 mL/min (>60); Est Glom Filt Rate - Afr Amer 69 mL/min (>60); Estimated Creatinine Clearance 41.65 ml/min; Glucose 100 mg/dL (74-106); Potassium 3.9 mmol/L (3.5-5.1); Sodium Level 137 mmol/L (136-145)
[2022-07-30] MEDS: Ipratropium/Albuterol Sulfate 3 ML AMPUL.NEB INHALATION ×3 (07:39→20:23)
--- NOTE | 2022-07-30 08:20 | CPS ---
SMI and pep attempted pt unable to do at this time
[2022-07-30] MEDS: Tamsulosin HCl 0.4 MG Capsule 0.8 MG PO (08:53)
[2022-07-30] MEDS: Heparin Injection (Vial) 5,000 UNIT/ML VIAL 5000 UNIT SC ×2 (11:22→21:58)
[2022-07-30] MEDS: levoFLOXacin IV 750 MG/150 ML BAG 100 MG IV (11:23)
[2022-07-30] MEDS: Pantoprazole Sodium 20 MG Tablet PO (11:23)
[2022-07-30] MEDS: Topiramate 100 MG Tablet PO ×2 (11:24→21:58)
--- NOTE | 2022-07-30 11:26 | PCM.PN.HOSP ---
Reason for Visit Reason for Visit: Diagnoses Respiratory failure, unspecified, unspecified whether with hypoxia or hypercapnia (07/29/22) Subjective Subjective Patient was seen and examined today, she still appears weak at times and unstable on her feet, I talked with her who was in the room at the time of my examination, he agrees that the patient should stay in the hospital for now. PT and OT will see the patient today and tomorrow, we will try to wean her oxygen down today, it is likely that she may have to go home on supplemental oxygen. Objective Data Objective Data Vital Signs: Vital Signs Temp Pulse Resp BP Pulse Ox O2 Del Method O2 Flow Rate 98.7 F 85 16 90/50 L 95 Nasal Cannula 2 07/30/22 07:55 07/30/22 07:55 07/30/22 07:55 07/30/22 07:55 07/30/22 07:55 07/30/22 08:21 07/30/22 09:27 Oxygen Flow Rate (L/min) 2 Oxygen Delivery Method Nasal Cannula Weight: 54.885 kg Body Mass Index (BMI) 21.4 Intake & Output: Intake and Output for Last 24 Hours 07/28/22 07/29/22 07/30/22 23:59 23:59 23:59 Intake Total 150 / 150 Output Total 4400 / 4400 1500 / 1500 Balance -4250 / -4250 -1500 / -1500 Lab / Micro Data Result Diagrams: 07/30/22 05:55 07/30/22 05:55 Labs: Laboratory Results - last 24 hr 07/30/22 05:55: WBC 7.1, RBC 3.34 L, Hgb 10.4 L, Hct 32.7 L, MCV 97.9, MCH 31.1, MCHC 31.8 L, RDW Std Deviation 52.1 H, RDW Coeff of Mehnaz 14.5, Plt Count 286, MPV 10.3, Immature Gran % (Auto) 0.400, Neut % (Auto) 70.5 H, Lymph % (Auto) 18.5 L, [place] % (Auto) 8.1, Eos % (Auto) 2.1, Baso % (Auto) 0.4, Absolute Neuts (auto) 5.0, Absolute Lymphs (auto) 1.32, Nucleated RBC % 0 07/30/22 05:55: Sodium 137, Potassium 3.9, Chloride 108 H, Carbon Dioxide 23.0, Anion Gap 6, BUN 14, Creatinine 1.01, Estim Creat Clear Calc 41.65, Est GFR (MDRD) Af Amer 69, Est GFR (MDRD) Non-Af 57 L, BUN/Creatinine Ratio 13.9, Glucose 100, Calcium 8.4 L Micro: Microbiology 07/29/22 07:46 Nasal Secretion SARS-CoV-2 & FLU Antigen (Rapid) - Final Influenzae B Radiography Diagnostic Testing: Radiology Impression Chest X-Ray 07/30/22 05:55 IMPRESSION: Persistent bilateral lower lobe infiltrates. Electronically Signed: Bekah Jc MD at 6:05 EDT , Physical Exam Narrative alert, oriented x3, no apparent distress and healthy appearing General Appearance: cooperative, well kempt and well developed Orientation / Consciousness: awake, oriented to person, oriented to place and oriented to time HEENT normocephalic, head/scalp atraumatic, hearing grossly normal bilaterally and moist oral mucous membranes Eyes PERRL, EOMs intact bilaterally and conjunctivae normal Neck supple, no JVD, thyroid normal and no carotid bruits General: trachea midline Resp normal respiratory effort, no retractions and no use of accessory muscles Resp Narrative: Scattered expiratory rhonchi bilaterally Auscultation: rhonchi; Negative for rales or wheezes Cardio regular rate, regular rhythm, S1 normal heart sound, S2 normal heart sound, no murmurs, no rub and no gallops GI normal to inspection, nondistended, normoactive bowel sounds, soft to palpation, non-tender and non-distended Extremity no clubbing, cyanosis or edema Skin no rashes or lesions noted General Skin Exam: no breakdown Neuro oriented x3, CN's II-XII intact bilaterally, moves all extremities, no focal motor deficits and no sensory deficits noted Sensorium / Orientation: awake and alert Speech: speech normal Psych affect normal Assessment & Plan Assessment/Plan (1) Pneumonia: (2) Respiratory failure: PLAN: Plan 1. Acute bilateral community-acquired pneumonia-suspected to be bacterial in nature, on a backdrop of influenza B infection-patient will be admitted to [facility], she will be placed on IV Levaquin, she will receive aerosol treatments, urine antigen was ordered for strep pneumoniae and Legionella. Patient will be given Tamiflu chest x-ray today shows continued bilateral infiltrates. #2 acute hypoxic respiratory failure-patient presented with increased respiratory rate at 28 and hypoxia on room air, she required 4 L of oxygen via nasal cannula to keep her pulse ox above 90, she had tachypnea and mild conversational dyspnea and the emergency room during the time of her exam according to the emergency room physician. Pulse ox will be monitored, oxygen will be weaned if possible, at the time of this dictation, we are trying to wean the patient down to 2 L via nasal cannula. #3 suspected chronic obstructive pulmonary disease-patient had a long history of smoking, she does not presently smoke but she vapes occasionally-complicates care, medical course, recovery, and prognosis #4 degenerative disc disease of the lumbar spine with scoliosis results again chronic pain-complicates care, medical course, recovery, and prognosis #5 influenza B-patient will be treated with Tamiflu #6 chronic anxiety-patient is on Klonopin Total clinical time spent by myself addressing the patient's medical issues, reviewing all of her data, and collaborating with patient's care team: 37 minutes Charges/Coding Visit Charges Inpatient E&M: 81123 Subs Hosp L2
[2022-07-30] MEDS: 0.9% Normal Saline 1,000 ML 500 ML IV (16:30)
[2022-07-30] MEDS: Oseltamivir Phosphate 30 MG Capsule PO ×2 (16:44→21:58)
[2022-07-30] MEDS: 0.9% Normal Saline 1,000 ML 75 ML IV (20:16)
[2022-07-30] MEDS: DOXEPIN HCL 50 MG CAPSULE 150 MG PO (21:58)
[2022-07-30] MEDS: traZODone 50 MG Tablet 150 MG PO (21:58)
[2022-07-30] MEDS: 0.9% Saline Lock 10 ML Syringe IV (21:59)
[2022-07-31] VITALS (10 sets, daily range): BP systolic 100–120; BP diastolic 60–75; PULSE 67–88; RESP 16–24; TEMP 36.4–36.8; O2SAT 91–97
[2022-07-31] MEDS: Gabapentin 400 MG Capsule PO ×4 (06:16→23:14)
[2022-07-31] MEDS: clonazePAM 1 MG Tablet PO ×3 (06:16→23:14)
[2022-07-31] MEDS: Ipratropium/Albuterol Sulfate 3 ML AMPUL.NEB INHALATION ×3 (07:25→19:20)
[2022-07-31] MEDS: 0.9% Normal Saline 1,000 ML 75 ML IV ×2 (08:45→23:13)
[2022-07-31] MEDS: Heparin Injection (Vial) 5,000 UNIT/ML VIAL 5000 UNIT SC ×2 (08:46→23:14)
[2022-07-31] MEDS: Topiramate 100 MG Tablet PO ×2 (08:46→23:17)
[2022-07-31] MEDS: Pantoprazole Sodium 20 MG Tablet PO (08:46)
[2022-07-31] MEDS: Oseltamivir Phosphate 30 MG Capsule PO ×2 (08:46→23:17)
[2022-07-31] MEDS: levoFLOXacin IV 750 MG/150 ML BAG 100 MG IV (08:48)
--- NOTE | 2022-07-31 08:59 | PN.HOSP_ITS ---
Reason for Visit Reason for Visit: Diagnoses Pneumonia, unspecified organism (07/29/22) Respiratory failure, unspecified, unspecified whether with hypoxia or hypercapnia (07/29/22) Subjective Subjective Patient very anxious to go home. Seen by speech therapy is doing evaluation patient was noted to have some coughing with liquids. Patient has had difficulty swallowing at times and has had to been Heimlich several times at home particular with difficult to chew foods. Patient has trouble swallowing due to ill fitting dentures. She has lost roughly 20 pounds recently. Objective Data Objective Data Vital Signs: Vital Signs Temp Pulse Resp BP Pulse Ox O2 Del Method O2 Flow Rate 36.8 C 71 22 H 107/64 94 Room Air 2 07/31/22 08:40 07/31/22 08:40 07/31/22 08:40 07/31/22 08:40 07/31/22 08:40 07/31/22 08:40 07/31/22 06:11 Oxygen Flow Rate (L/min) 2 Oxygen Delivery Method Room Air Weight: 54.885 kg Body Mass Index (BMI) 21.4 Intake & Output: Intake and Output for Last 24 Hours 07/29/22 07/30/22 07/31/22 23:59 23:59 23:59 Intake Total 150 / 150 1150 / 1150 942.50 / 942.50 Output Total 4400 / 4400 3050 / 3050 750 / 750 Balance -4250 / -4250 -1900 / -1900 192.50 / 192.50 Lab / Micro Data Result Diagrams: 07/30/22 05:55 07/30/22 05:55 Micro: Microbiology 07/30/22 23:55 Urine Catheter - Bass Streptococcus pneumoniae Antigen (M - Final 07/30/22 23:55 Urine Catheter - Bass Legionella Antigen - Final 07/29/22 07:46 Nasal Secretion SARS-CoV-2 & FLU Antigen (Rapid) - Final Influenzae B Physical Exam Const Constitutional Narrative: Flat affect. Nontoxic. Eyes Eyes Narrative: No icterus Resp normal respiratory effort, no retractions, no use of accessory muscles and clear to auscultation bilaterally Cardio regular rate, regular rhythm, S1 normal heart sound and S2 normal heart sound GI normal to inspection, nondistended, normoactive bowel sounds, soft to palpation, non-tender and non-distended Psych Psych Narrative: Flat affect Assessment & Plan Assessment/Plan (1) Pneumonia: PLAN: Acute bilateral community-acquired pneumonia-suspected to be bacterial in nature, on a backdrop of influenza B infection IV Levaquin, urine antigen for strep pneumoniae and Legionella, negative. Patient will be given Tamiflu chest x-ray today shows continued bilateral infiltrates. (2) Respiratory failure: PLAN: acute hypoxic respiratory failure-patient presented with increased respiratory rate at 28 and hypoxia on room air, she required 4 L of oxygen via nasal cannula to keep her pulse ox above 90, she had tachypnea and mild conversational dyspnea and the emergency room during the time of her exam according to the emergency room physician. Pulse ox will be monitored, oxygen will be weaned if possible, at the time of this dictation, we are trying to wean the patient down to 2 L via nasal cannula. resolved 2/2 pneumonia and influenza follow up with pulmonary as outpt for PFTs (3) Influenza: PLAN: influenza B-patient will be treated with Tamiflu through the (4) Dysphagia: PLAN: Discussed with the patient and her that it seems that some her swelling may be related with difficulty masticating due to issues with her dentures but she is having trouble even with thin liquids which leads me to concerned about either a pharyngeal process or possible vocal esophageal process. Speech therapy recommended modified barium swallow. Patient stated that she would want to have done as outpatient. Discussed with she and her that she is here with pneumonia and I cannot rule that out being aspiration and strongly recommended that she stay. Did tell her that she could do this as outpatient but would be several weeks before that could be done. I did not tell her that she would be discharged today afterwards but it would depend on what the findings were if we need to do anything for inpatient side to address. Patient reluctantly agreed. PLAN: Plan Chronic conditions: * degenerative disc disease of the lumbar spine with scoliosis results again chronic pain-complicates care, medical course, recovery, and prognosis * chronic anxiety-patient is on Klonopin VTE prophylaxis: SQ heparin Greater than 50 minutes of which greater than 50 percent of time was counseling the patient and her family at bedside about the modified barium swallow, concern for dysphagia as well as concern for worsening pneumonia and even . Charges/Coding Visit Charges Inpatient E&M: 87155 Subs Hosp L3
--- NOTE | 2022-07-31 10:32 | NURSING ---
cardiac monitoring per computerized send documentation. Charge nurse at desk to monitor as well.
[2022-07-31] MEDS: Tamsulosin HCl 0.4 MG Capsule 0.8 MG PO (17:36)
[2022-07-31] MEDS: traZODone 50 MG Tablet 150 MG PO (23:15)
[2022-07-31] MEDS: DOXEPIN HCL 50 MG CAPSULE 150 MG PO (23:15)
[2022-08-01] VITALS (8 sets, daily range): BP systolic 104–122; BP diastolic 59–71; PULSE 70–80; RESP 18; TEMP 36.8–37.1; O2SAT 93–96
[2022-08-01] MEDS: clonazePAM 1 MG Tablet PO ×3 (05:22→20:57)
[2022-08-01] MEDS: Gabapentin 400 MG Capsule PO ×3 (05:22→17:52)
[2022-08-01] MEDS: Ipratropium/Albuterol Sulfate 3 ML AMPUL.NEB INHALATION ×3 (06:49→19:18)
--- NOTE | 2022-08-01 08:34 | PN.HOSP_ITS ---
Reason for Visit Reason for Visit: Diagnoses Influenza due to unidentified influenza virus with other respiratory manifestat ions (07/29/22) Pneumonia, unspecified organism (07/29/22) Respiratory failure, unspecified, unspecified whether with hypoxia or hypercapnia (07/29/22) Dysphagia, unspecified (07/29/22) Subjective Subjective I want to go home when asked how she is doing. No events overnight. Objective Data Objective Data Vital Signs: Vital Signs Temp Pulse Resp BP Pulse Ox O2 Del Method O2 Flow Rate 37.0 C 70 18 122/66 H 93 Room Air 2 08/01/22 05:00 08/01/22 06:49 08/01/22 06:49 08/01/22 05:00 08/01/22 06:49 08/01/22 06:49 07/31/22 15:43 Oxygen Flow Rate (L/min) 2 Oxygen Delivery Method Room Air Weight: 54.885 kg Body Mass Index (BMI) 21.4 Intake & Output: Intake and Output for Last 24 Hours 07/30/22 07/31/22 08/01/22 23:59 23:59 23:59 Intake Total 1150 / 1150 2458.75 / 2458.75 Output Total 3050 / 3050 2675 / 2675 600 / 600 Balance -1900 / -1900 -216.25 / -216.25 -600 / -600 Lab / Micro Data Result Diagrams: 07/30/22 05:55 07/30/22 05:55 Micro: Microbiology 07/29/22 08:23 Blood Culture (Wb) - Anticubital Left Blood Culture - Preliminary No growth in 48 hours. 07/30/22 23:55 Urine Catheter - Bass Streptococcus pneumoniae Antigen (M - Final 07/30/22 23:55 Urine Catheter - Bass Legionella Antigen - Final 07/29/22 07:46 Nasal Secretion SARS-CoV-2 & FLU Antigen (Rapid) - Final Influenzae B Physical Exam Const alert and no apparent distress HEENT head/scalp atraumatic and moist oral mucous membranes Resp normal respiratory effort, no retractions, no use of accessory muscles and clear to auscultation bilaterally Cardio regular rate, regular rhythm, S1 normal heart sound and S2 normal heart sound GI normal to inspection, nondistended, normoactive bowel sounds, soft to palpation, non-tender and non-distended Psych Psych Narrative: flat affect. Assessment & Plan Assessment/Plan (1) Pneumonia: PLAN: Acute bilateral community-acquired pneumonia-suspected to be bacterial in nature, on a backdrop of influenza B infection IV Levaquin, urine antigen for strep pneumoniae and Legionella, negative. Patient will be given Tamiflu chest x-ray today shows continued bilateral infiltrates. (2) Respiratory failure: PLAN: acute hypoxic respiratory failure-patient presented with increased resp iratory rate at 28 and hypoxia on room air, she required 4 L of oxygen via nasal cannula to keep her pulse ox above 90, she had tachypnea and mild conversational dyspnea and the emergency room during the time of her exam according to the emergency room physician. Pulse ox will be monitored, oxygen will be weaned if possible, at the time of this dictation, we are trying to wean the patient down to 2 L via nasal cannula. resolved 2/2 pneumonia and influenza follow up with pulmonary as outpt for PFTs (3) Influenza: PLAN: influenza B-patient will be treated with Tamiflu through the (4) Dysphagia: PLAN: Discussed with the patient and her that it seems that some her swelling may be related with difficulty masticating due to issues with her dentures but she is having trouble even with thin liquids which leads me to concerned about either a pharyngeal process or possible vocal esophageal process. Speech therapy recommended modified barium swallow. Patient stated that she would want to have done as outpatient. Discussed with she and her that she is here with pneumonia and I cannot rule that out being aspiration and strongly recommended that she stay. Did tell her that she could do this as outpatient but would be several weeks before that could be done. MBS on 08/01: showed mod-severe oropharyngeal dysphagia and esophageal dysphagia. I discussed with ST, who recommends GI eval for the esophageal reflux. I discussed the recommendations with the patient and her . Patient asked if EGD, if indicated, can be done as outpatient. I told her that it could, however, I recommended that it at least be evaluated while she is here given the severity of her symptoms in addition to her chronic weight loss. I told her I do not know what the etiology of her reflux is if its stenosis, whether or mass or some other process. But I recommended that she be seen by gastroenterology when she was here. Patient did agree. I discussed with Dr. Zarate who will see the patient in consultation. 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
--- NOTE | 2022-08-01 11:29 | SP.MBSS_ITS ---
Modified Barium Swallow - Patient Information Study Date: 08/01/22 Study Time: 10:00 Direct Billable Minutes: 120 Total Minutes procedure & reportin Diagnosis: Dysphagia (R13.10), Respiratory failure (J96.90) Referring Physician: Doni Hanson Reason for Referral: Objectively assess swallow function, assess risk for aspiration, and determine recommendations for least restrictive diet textures and compensatory strategies to improve safety of swallow. Medical History: Jacque David is a 72-year-old female with PMH including ambulates with cane, anxiety, carpal tunnel syndrome, former smoker, GERD, high cholesterol, HTN, shortness of breath on exertion. She presented to [facility] ED 07/29/2022 with a 2- to 3-day history of shortness of breath. Patient's chest x-ray showed bibasilar opacities. Patient required 4 L of oxygen via nasal cannula to maintain her pulse ox above 90%. Influenza B test was positive, COVID test was negative. Pat ient was given IV Levaquin in the ER and then admitted to PCU for management of bilateral pneumonia with a backdrop of influenza B with hypoxia. She was referred for ST evaluation to assess dysphagia. Patient was initially recommended for Regular textures / Thin liquids with aspiration precautions f ollowing BSE with REJECTED ITEMS CLERK 07/30/2022. The following day, the patient was downgraded to Easy to Chew textures / Thin liquids with Direct Supervision at meals and recommended for MBSS to further assess swallow function due to patient and family reports of choking at home (4 instances requiring the Heimlich), REJECTED ITEMS CLERK observations of coughing with thin water, and reports of significant weight loss in the past year and a half. Current Diet Ordered: Easy to Chew textures / Thin liquids Dentition: Upper Dentures - ill fitting - not her dentures per patient's Respiratory Status: Oxygenating on Room Air - Penetration-Aspiration Scale Penetration-Aspiration Scale: OBJECTIVE ASSESSMENT OF SWALLOW FUNCTION (QUANTITATIVE ? PER TRIAL): PENETRATION / ASPIRATION SCALE (HERNANDEZ): 1 = does not enter airway 2 = enters airway/above vocal folds/ejected 3 = enters airway/above vocal folds/not ejected 4 = enters airway/contacts vocal folds/ejected 5 = enters airway/contacts vocal folds/not ejected 6 = enters airway/below vocal folds/ejected 7 = enters airway/below vocal folds/not ejected despite effort 8 = enters airway/below vocal folds/no effort VIDEOFLOROSCOPIC SCALE SCORE (HERNANDEZ): Grade I = aspiration of material that has penetrated into the laryngeal vestibule, intact cough reflex Grade II = aspiration < 10 % of the bolus, intact cough reflex Grade III = aspiration of < 10 % of the bolus, reduced cough reflex or aspiration of > 10 % of the bolus, intact cough reflex Grade IV = aspiration of > 10 % of the bolus, reduced cough reflex - Penetration-Aspiration Scale Score Thin Liquid via teaspoon Result: 1= does not enter airway Thin Liquid via teaspoon Trial 2 Result: 1= does not enter airway Thin Liquid via small single sip from cup Result: 1= does not enter airway - SILENT post prandial aspiration of this trial observed during the following trial, likely from residue in the pyriform sinuses spilling to the airway after the swallow. [place] Thick Liquid via small single sip from cup Result: 1= does not enter airway Pudding via teaspoon with esophageal screen Result: 1= does not enter airway 1/4 Cookie Comment: Unable to complete PAS score of the cookie alone, as it was swallowed with a liquid wash. The cookie took ~5 min and 45 seconds to adequately mash prior to the patient swallowing with use of liquid wash. Thin liquid wash of cookie, single sip via straw with esophageal screen Result: 1= does not enter airway Thin Liquid via sequential sips from cup Result: 8= enters airway/below vocal folds/no effort - Of note, patient was cued for single sip, double effortful swallows; however, she consumed 2 sips sequentially - Oral Phase Labial Seal: Escape beyond interlabial space; no extension beyond osiel border Tongue Control During Bolus Hold: Posterior escape of greater than half of bolus Bolus Preparation/Mastication: Disorganized chewing/mashing with solid pieces of bolus unchewed Bolus Transport/Lingual Motion: Repetitive/disorganized tongue motion Oral Residue: Residue collection on oral structures - Pharyngeal Phase Initiation of Pharyngeal Swallow: Bolus head in pyriforms Soft Palate Elevation: No bolus between soft palate and pharyngeal wall Laryngeal Elevation: Partial superior movement thyroid cart/partial apprx aryt- epig petiole Anterior Hyoid Excursion: Partial anterior movement Epiglottic Movement: Partial inversion Laryngeal Vestibule Closure at Height of Swallow: None; wide column of air/contrast in laryngeal vestibule Pharyngeal Stripping Wave: Present - diminished Pharyngoesophageal Segment Opening: Parital distension and partial duration; parital obstruction of flow Tongue Base Retraction: Wide column of contrast between tongue base & post. pharyngeal wall Pharyngeal Residue: Collection of residue within or on pharyngeal structures - Esophageal Phase Esophageal Clearance: Esophageal retention w/ retrograde flow through pharyngoesophageal seg - Diagnosis/Impression Diagnosis: Mod-severe oropharyngeal dysphagia (R13.12), Esophageal dysphagia (R13.14) Impression: The oral phase is primarily marked by... -Decreased bolus control with >1/2 of the bolus spilling posteriorly to the pyriforms prior to swallow onset observed with thin liquids especially. -Lingual pumping for A-P transport. -Very prolonged mastication of cookie, requiring ~5 min and 45 seconds to chew 1/4 Leigh Ann Doone cookie. Liquid wash required to then swallow cookie. Chewing is disorganized with patient munching at the front of the mouth much of the time. The pharyngeal phase is primarily marked by... -Mildly decreased airway closure during the swallow due to partial anterior hyoid excursion and decreased laryngeal elevation. -Moderately decreased tongue base retraction, moderately decreased UES opening/duration, and decreased pharyngeal stripping wave with resulting moderate-severe pharyngeal residues after the swallow in the vallecula and pyriforms. -Post prandial SILENT aspiration of thin liquids by cup, which appeared to spill from residue in the pyriforms after the swallow. SILENT aspiration during the swallow of sequential sips via cup. Decreased bolus size and multiple swallows were most effective in decreasing both pharyngeal residue and aspiration risk. The esophageal phase of the swallow is primarily marked by... -Mild retention of pudding with retrograde flow through the lower esophageal sphincter. -Narrow upper esophagus with retention of thin liquids. REJECTED ITEMS CLERK observed retrograde flow of thin liquids through upper esophageal sphincter to the pyriform sinuses, contributing to increased pharyngeal residues after the swallow and SILENT post prandial aspiration described above. -Tortuous esophagus with both narrow upper and lower esophagus. Very poor emptying of thin liquids through the lower esophageal sphincter. Image - Esophageal screen of thin liquids via straw. - Recommendations Diet: Thin Liquids - Minced and Moist textures (IDDSI Level 5) Comment: DISCONTINUE FOOD/DRINK IF INCREASED S/S OF REFLUX OR ASPIRATION and resume at a later time Compensatory Strategies: Small Bites, Liquid by Teaspoon Only - encourage 2-3 swallows each sip, Slow Rate, Alternate bites/solids and sips/liquids, Sitting upright, Remain sitting upright for 30 minutes after PO intake - 60 min after po intake Supervision: 1:1 Close Supervision Recommend Repeat Modified Barium Swallow: Yes - 2-4 weeks after implementation of oropharyngeal exercise program Need for Skilled Speech Therapy Services: Yes Comment: Will recommend the patient for dysphagia therapy to address moderate-severe deficits in oropharyngeal swallow function. Will recommend the patient for oropharyngeal strengthening to improve lingual control/coordination, hyolaryngeal elevation/excursion, tongue base retraction, and duration of UES opening (lingual resistance, CTAR, Jamee, Shaker, effortful). The patient would benefit from thorough education regarding diet recommendations and recommended compensatory strategies. Recommended Referrals: GI Consult - Poor esophageal emptying, especially of liquids. Retrograde flow of liquids through the upper esophageal sphincter. HIGH reflux aspiration risk. Education Completed: 1. Described result of evaluation., 4. Family/caregivers understand evaluation & agree w/ goals & tx plan., 7. Pt requires further e ducation on strategies & risks. - Status Active ST Patient: Active - Contact Information [facility] Speech Therapy:: Jocelyne Chinchilla M.A. [facility]REJECTED ITEMS CLERK Speech-Language Pathologist [facility] [address] [place] [address] [email or web address] [phone] 08/01/22 11:39
[2022-08-01] MEDS: Heparin Injection (Vial) 5,000 UNIT/ML VIAL 5000 UNIT SC ×2 (11:55→21:08)
[2022-08-01] MEDS: Pantoprazole Sodium 20 MG Tablet PO (11:56)
[2022-08-01] MEDS: Topiramate 100 MG Tablet PO ×2 (11:56→20:58)
[2022-08-01] MEDS: Oseltamivir Phosphate 30 MG Capsule PO ×2 (11:56→20:59)
[2022-08-01] MEDS: 0.9% Normal Saline 1,000 ML 75 ML IV ×2 (12:06→21:11)
[2022-08-01] MEDS: Acetaminophen 325 MG Tablet 650 MG PO (16:49)
[2022-08-01] MEDS: Tamsulosin HCl 0.4 MG Capsule 0.8 MG PO (17:52)
--- NOTE | 2022-08-01 20:10 | CON.PCM.GI_ITS ---
HPI Consult Data Date of Consult: 08/01/22 HPI Narrative Reason for Consultation: dysphagia HPI Narrative: CAROL ZARAGOZA, is a 72 F who presents 72 F who presents to the emergency room at [facility] with a 2 to 3-day history of shortness of breath.? Patient denies any productive cough, she denies any fevers or chills.? Patient denies any muscle aches. Work-up in the emergency room included labs which revealed a normal white blood cell count, hemoglobin was also normal, creatinine was minimally elevated at 1.08.? Glucose was 123.? Beta natruretic peptide was normal at 36.5, patient's chest x-ray showed bibasilar opacities.? Patient required 4 L of oxygen via nasal cannula to maintain her pulse ox above 90%.? Influenza B test was positive, COVID test was negative. Patient was given IV Levaquin in the emergency room, she was admitted to PCU for bilateral pneumonia with a backdrop of influenza B with hypoxia.? She will be treated with IV antibiotics, Tamiflu, and aerosol treatments, pulse ox will be monitored. I was asked to see her due to abnormal swallowing study. She was diagnosed with Mod-severe oropharyngeal dysphagia and Esophageal dysphagia [facility] Medical History (Updated 07/31/22 @ 13:[address] Doni Hanson, ) Ambulates with cane Anxiety Arthritis Back pain Carpal tunnel syndrome on both sides Depression Former smoker Gastric reflux High cholesterol History of stress test Hypertension Migraine headache Post-menopausal Shortness of breath on exertion Uses wheelchair Walker as ambulation aid Wears dentures Wears glasses Wears hearing aid Home Medications Topiramate 25 mg PO BID migraines 02/17/20 [History Last Taken 04/26/22] buspirone 7.5 mg tablet 7.5 mg PO BID Check with primary doctor 02/17/20 [History Last Taken 04/26/22] clonazepam 1 mg tablet 1 mg PO TID anxiety 02/17/20 [History Last Taken 04/26/22] trazodone 150 mg tablet 150 mg PO QHS 02/17/20 [History Last Taken 04/26/22] doxepin 150 mg capsule 150 mg PO QHS Check with primary doctor 04/20/22 [History Last Taken 04/26/22] gabapentin 400 mg capsule 400 mg PO Q6H Check with primary doctor 04/20/22 [History Last Taken 04/26/22] omeprazole 20 mg capsule,delayed release 20 mg PO DAILY Check with primary doctor 04/20/22 [History Last Taken 04/27/22] Allergy/AdvReac Type Severity Reaction Status Date / Time hydrocodone [From Vicodin] Allergy NERVOUS, Verified 07/29/22 07:48 JITTERY Penicillins Allergy Rash Verified 07/29/22 07:48 Family History Other CVA (cerebral vascular accident) Cancer Hypertension Surgical History (Updated 04/20/22 @ 10:20 by Brigitte Connell) History of 2 sections History of cardiac catheterization History of lumbar laminectomy Hx of dilation and curettage Hx of surgical procedure Social History (Updated 08/01/18 @ 16:[address] Mary Becerra, [place]) Smoking Status: Former smoker alcohol intake: never substance use type: does not use what type of physical activity do you participate in: none ROS Constitutional Constitutional: Reports fatigue and weakness; Denies anorexia, change in weight, chills, fever(s) or night sweats Eyes Eyes: Denies blurry vision, change in vision, discharge from eye(s) or eye pain Cardiovascular Cardiovascular: Reports dyspnea on exertion; Denies chest pain, claudication, edema or palpitations Respiratory/Chest Respiratory/Chest: Reports dyspnea, shortness of breath at rest and shortness of breath with exertion; Denies cough or hemoptysis Gastrointestinal Gastrointestinal: Denies abdominal pain, coffee ground emesis, constipation, diarrhea, hematemesis, hematochezia, melena, nausea or vomiting Genitourinary Genitourinary: Denies difficulty urinating, dysuria, hematuria, urinary frequency, urinary hesitancy, urinary incontinence or urinary urgency Musculoskeletal Musculoskeletal: Denies back pain, joint pain, joint stiffness, joint swelling, myalgias or neck pain Neurologic Neurologic: Denies abnormal gait, abnormal speech, dizziness, focal weakness, headache(s), loss of vision, numbness, other visual disturbances, paresthesias, syncope or tingling Psychiatric Psychiatric: Denies anxiety, cognitive impairment, depression, irritability, mood swings or suicidal ideation Endocrine Endocrinology: Denies change in body appearance, cold intolerance, excessive sweating, heat intolerance, polydipsia or polyuria Hematologic/Lymphatic Hematologic/Lymphatic: Denies none, anemia, easy bleeding, easy bruising or lymphadenopathy Allergic/Immunologic Allergic/Immunologic: Denies rhinitis, urticaria, eczemia or asthma Physical Exam Const alert and no apparent distress HEENT head/scalp atraumatic and moist oral mucous membranes Resp normal respiratory effort, no retractions, no use of accessory muscles and clear to auscultation bilaterally Cardio regular rate, regular rhythm, S1 normal heart sound and S2 normal heart sound GI normal to inspection, nondistended, normoactive bowel sounds, soft to palpation, non-tender and non-distended Psych Psych Narrative: flat affect. Lab / Micro Data Result Diagrams: 07/30/22 05:55 07/30/22 05:55 Assessment & Plan Assessment/Plan (1) Dysphagia: PLAN: The Differential diagnosis for her orophageal and esophageal dysphagia in the setting of weight loss is esophageal malignancy, myasthenia gravis, CVA, achalasia and COPD. She will undergo an upper endoscopy to evaluate the upper esophagus. NPO past midnight Charges/Coding Visit Charges Inpatient E&M: 06523 Init Hosp L3
[2022-08-01] MEDS: traZODone 50 MG Tablet 150 MG PO (20:57)
[2022-08-01] MEDS: DOXEPIN HCL 50 MG CAPSULE 150 MG PO (20:58)
[2022-08-02] VITALS (20 sets, daily range): BP systolic 98–148; BP diastolic 61–93; PULSE 68–88; RESP 16–18; TEMP 36.2–37.1; O2SAT 87–100; BMI 21.4
--- NOTE | 2022-08-02 | ESO_PTH ---
PATIENT: CAROL ZARAGOZA LOC: [facility] U#:[id number] AGE/SX: 72/F ROOM: [facility] RE07/29/[address]: Dr. Doni Hanson DO : 1950 BED: 1 DIS: 08/03/2022 SPEC #: [id number] RECD: 08/02/22 13:48 STATUS: CHERYL PURDY #: [id number] DRAKE: 08/02/22 00:[address]: Gurmeet Zarate DEPT: SURGICAL PATHOLOGY RECD BY: Kojo Dorman ENTERED: 08/03/22 11:50 SP TYPE: ESOPH BX OTHR DR: DO Dr. Rafita Guevara DO Dr. Tai Chi Kwok, MD Tissues: Esophagus, NOS Procedures: Special Stain Group II Special Stain Group I Surgery Specimen Level IV GMS Stain (control) Alcian Blue/PAS (control) Comments: @ Ordering doctor for SUIV edited from to @ by MARCIN at 08/03/22 1527 @ Submitting doctor edited from to @ by RGOOD at 08/03/22 1527 HEADER OPERATION: EGD ([facility]) with biopsies PRE-OP DIAGNOSIS: Dysphagia TISSUE SUBMITTED: Distal esophagus biopsy MICROSCOPIC DIAGNOSIS Distal esophagus, biopsy: Gastroesophageal junctional mucosa with acute and chronic inflammation. No evidence of goblet cell metaplasia. Rare fungal organisms identified. See comment. AM:choco 08/04/2022 COMMENT GMS stain with matched control was used in the evaluation of this case. Alcian blue/PAS stain with matched control supports the above diagnosis. MICROSCOPIC DESCRIPTION Slides are reviewed. GROSS DESCRIPTION Received in fixative is one container labeled with the patient's name and designated distal esophagus biopsy. The specimen consists of multiple irregular fragments of light chan soft tissue that in aggregate measure 0.8 x 0.5 x 0.1 cm. The specimen is totally submitted in one cassette. / SJ:choco 08/03/2022 TC:2 CPT: 79111, 69427, 81282
[2022-08-02] MEDS: clonazePAM 1 MG Tablet PO ×3 (05:25→21:22)
[2022-08-02] MEDS: Gabapentin 400 MG Capsule PO ×3 (05:25→21:14)
[2022-08-02] MEDS: Ipratropium/Albuterol Sulfate 3 ML AMPUL.NEB INHALATION ×2 (07:06→19:21)
--- NOTE | 2022-08-02 08:43 | PCM.PN.HOSP ---
Reason for Visit Reason for Visit: Diagnoses Influenza due to unidentified influenza virus with other respiratory manifestations (07/29/22) Pneumonia, unspecified organism (07/29/22) Respiratory failure, unspecified, unspecified whether with hypoxia or hypercapnia (07/29/22) Dysphagia, unspecified (07/29/22) Subjective Subjective No new events. Objective Data Objective Data Vital Signs: Vital Signs Temp Pulse Resp BP Pulse Ox O2 Del Method O2 Flow Rate 36.6 C 78 16 110/67 96 Room Air 2 08/02/22 04:50 08/02/22 07:06 08/02/22 07:06 08/02/22 04:50 08/02/22 07:06 08/02/22 07:06 07/31/22 15:43 Oxygen Flow Rate (L/min) 2 Oxygen Delivery Method Room Air Weight: 54.88 kg Body Mass Index (BMI) 21.4 Intake & Output: Intake and Output for Last 24 Hours 07/31/22 08/01/22 08/02/22 23:59 23:59 23:59 Intake Total 2458.75 / 2458.75 50 / 50 Output Total 2675 / 2675 2250 / 2650 850 / 850 Balance -216.25 / -216.25 -242.50 / -642.50 -850 / -850 Lab / Micro Data Result Diagrams: 07/30/22 05:55 07/30/22 05:55 Micro: Microbiology 07/29/22 08:23 Blood Culture (Wb) - Anticubital Left Blood Culture - Preliminary No growth in 48 hours. 07/30/22 23:55 Urine Catheter - Bass Streptococcus pneumoniae Antigen (M - Final 07/30/22 23:55 Urine Catheter - Bass Legionella Antigen - Final 07/29/22 07:46 Nasal Secretion SARS-CoV-2 & FLU Antigen (Rapid) - Final Influenzae B Physical Exam Const Constitutional Narrative: seen in AM and just woke up and was slow to be alert. seen later and was much more alert. Resp normal respiratory effort, no retractions, no use of accessory muscles and clear to auscultation bilaterally Cardio regular rate, regular rhythm, S1 normal heart sound and S2 normal heart sound Assessment & Plan Assessment/Plan (1) Pneumonia: PLAN: Acute bilateral community-acquired pneumonia-suspected to be bacterial in nature, on a backdrop of influenza B infection IV Levaquin, urine antigen for strep pneumoniae and Legionella, negative. Patient will be given Tamiflu chest x-ray today shows continued bilateral infiltrates. (2) Respiratory failure: PLAN: acute hypoxic respiratory failure-patient presented with increased respiratory rate at 28 and hypoxia on room air, she required 4 L of oxygen via nasal cannula to keep her pulse ox above 90, she had tachypnea and mild conversational dyspnea and the emergency room during the time of her exam according to the emergency room physician. Pulse ox will be monitored, oxygen will be weaned if possible, at the time of this dictation, we are trying to wean the patient down to 2 L via nasal cannula. resolved 2/2 pneumonia and influenza follow up with pulmonary as outpt for PFTs (3) Influenza: PLAN: influenza B-patient will be treated with Tamiflu through the (4) Dysphagia: PLAN: Discussed with the patient and her that it seems that some her swelling may be related with difficulty masticating due to issues with her dentures but she is having trouble even with thin liquids which leads me to concerned about either a pharyngeal process or possible vocal esophageal process. Speech therapy recommended modified barium swallow. Patient stated that she would want to have done as outpatient. Discussed with she and her that she is here with pneumonia and I cannot rule that out being aspiration and strongly recommended that she stay. Did tell her that she could do this as outpatient but would be several weeks before that could be done. MBS on 08/01: showed mod-severe oropharyngeal dysphagia and esophageal dysphagia. I discussed with ST, who recommends GI eval for the esophageal reflux. I discussed the recommendations with the patient and her . Patient asked if EGD, if indicated, can be done as outpatient. I told her that it could, however, I recommended that it at least be evaluated while she is here given the severity of her symptoms in addition to her chronic weight loss. I told her I do not know what the etiology of her reflux is if its stenosis, whether or mass or some other process. But I recommended that she be seen by gastroenterology when she was here. Patient did agree. I discussed with Dr. Zarate who will see the patient in consultation. EGD performed and showed grade A esophagitis with biopsies performed. Large amount oif food in the stomach. Dilation performed in esophagus. Updated patient and her . Unclear if she has gastroparesis, but she will need a gastric empyting study. This can be done as outpt w GI follow up. Also, with the oropharyngeal dysphagia, it is concerning that the may have a neurological disorder. 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
[2022-08-02] MEDS: levoFLOXacin IV 750 MG/150 ML BAG 100 MG IV (09:43)
[2022-08-02] MEDS: Lactated Ringers 1,000 ML 15 ML IV (11:48)
--- NOTE | 2022-08-02 12:48 | OP.EGD_ITS ---
Patient Name: Jacque David Procedure Date: 08/02/2022 12:19 PM Date of : 1950 Age: 72 Procedure: Upper GI endoscopy Indications: Dysphagia Providers: Gurmeet Zarate DO Medicines: Monitored Anesthesia Care Patient Profile: This is a 72 year old female. Refer to note in patient chart for documentation of history and physical. Patient has symptoms of acute dysphagia. Complications: No immediate complications. Procedure: Pre-Anesthesia Assessment: - Prior to the procedure, a History and Physical was performed, and patient medications and allergies were reviewed. The risks and benefits of the procedure and the sedation options and risks were discussed with the patient. All questions were answered and informed consent was obtained. Patient identification and proposed procedure were verified by the physician in the pre-procedure area. Mental Status Examination: alert and oriented. CV Examination: normal. Prophylactic Antibiotics: The patient does not require prophylactic antibiotics. Prior Anticoagulants: The patient has taken no previous 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 or antiplatelet agents. ASA Grade Assessment: II - A patient with mild systemic disease. After reviewing the risks and benefits, the patient was deemed in satisfactory condition to undergo the procedure. The anesthesia plan was to use monitored anesthesia care (MAC). Immediately prior to administration of medications, the patient was re-assessed for adequacy to receive sedatives. The heart rate, respiratory rate, oxygen saturations, blood pressure, adequacy of pulmonary ventilation, and response to care were monitored throughout the procedure. The physical status of the patient was re-assessed after the procedure. After obtaining informed consent, the endoscope was passed under direct vision. Throughout the procedure, the patient's blood pressure, pulse, and oxygen saturations were monitored continuously. The Endoscope was introduced through the mouth, and advanced to the second part of duodenum. The upper GI endoscopy was accomplished without difficulty. The patient tolerated the procedure well. Scope In: 12:35:17 PM Scope Out: 12:38:09 PM Total Procedure Duration Time 0 hours 2 minutes 52 seconds Findings: LA Grade A (one or more mucosal breaks less than 5 mm, not extending between tops of 2 mucosal folds) esophagitis with no bleeding was found 38 to 40 cm from the incisors. Biopsies were taken with a cold forceps for histology. Verification of patient identification for the specimen was done. Estimated blood loss: none. A guidewire was placed and the scope was withdrawn. Dilation was performed with a Savary dilator with no resistance at 45 Fr. The dilation site was examined and showed moderate improvement in luminal narrowing. Estimated blood loss was minimal. A large amount of food (residue) was found in the gastric body. The second portion of the duodenum was normal. Impression: - LA Grade A erosive esophagitis. Biopsied. Dilated. - A large amount of food (residue) in the stomach. - Normal second portion of the duodenum. Recommendation: - Discharge patient to home. - Continue present medications. - Gastric emptying study - Aspiration precautions Procedure Code(s): --- Professional --- 60706, Esophagogastroduodenoscopy, flexible, transoral; with insertion of guide wire followed by passage of dilator(s) through esophagus over guide wire 22256, 59, Esophagogastroduodenoscopy, flexible, transoral; with biopsy, single or multiple CPT copyright 2017 [employer]. All rights reserved. The codes documented in this report are preliminary and upon maintenance shop laborer review may be revised to meet current compliance requirements. Gurmeet Zarate DO 08/02/2022 12:48:18 PM This report has been signed electronically. Number of Addenda: 0 Note Initiated On: 08/02/2022 12:19 PM
--- NOTE | 2022-08-02 12:49 | OP.CCLET_ITS ---
08/02/2022 Harish Luis MD [address] [place] [address] Re : Upper GI endoscopy procedure for Jacque Bairdr Dear Dr. Luis This procedure was performed on Tuesday, August 02, 2022. My impressions and recommendations are as follows: Impressions : - LA Grade A erosive esophagitis. Biopsied. Dilated. - A large amount of food (residue) in the stomach. - Normal second portion of the duodenum. Recommendations : - Discharge patient to home. - Continue present medications. - Gastric emptying study - Aspiration precautions My findings are described in the full procedure note, which is enclosed. If I can be of further assistance, please feel free to contact me at . Sincerely, Gurmeet Friend, 08/02/2022 12:48:18 PM This report has been signed electronically.
[2022-08-02] MEDS: 0.9% Normal Saline 1,000 ML 75 ML IV ×2 (13:51→21:30)
--- NOTE | 2022-08-02 14:29 | PCM.DC ---
Discharge Instructions Diet Discharge Diet: Swallowing Precautions (Direct supervision, Liquids by tsp only, double swallow, Ensure Compact TID w/meals) Activity Discharge Activity: Use Walker Dressing / Incision Call your doctor if you observe: Shortness of breath Follow Up Care Test Results: Test results from this visit will be discussed in further detail at your follow-up appointment, if applicable. Discharge Plan Admission Admit Date/Time: 07/29/22 09:27 Primary Reason for Your Visit: Pneumonia, Influenza B, dysphagia. Attending Provider: Doni Hanson Primary Care Provider: Harish Luis Chi Consulting Providers: Rafita Siddiqui Additional Instructions / Restrictions: You have pneumonia and influenza. Please take antibiotics as directed. Please follow up with Dr. Zarate of gastroenterology for biopsy results and referral for a gastric emptying study. I would be concerned about a movement disorder and recommended she be seen at a movement disorder clinic (e.g., [facility] [phone], [facility] [phone]) Discharge Orders/Prescriptions Prescriptions: New acetaminophen 325 mg Tablet 650 mg PO Q6H PRN PRN (Reason: Pain 1-10 Or Fever >100.7) Qty: 0 0RF oseltamivir 30 mg Capsule 30 mg PO BID Qty: 1 0RF levofloxacin 750 mg tablet 750 mg PO DAILY Qty: 3 0RF Continued clonazepam 1 MG tablet 1 mg PO TID buspirone 7.5 MG tablet 7.5 mg PO BID Topiramate 25 MG tablet 25 mg PO BID trazodone 150 MG tablet 150 mg PO QHS omeprazole 20 mg capsule,delayed release(DR/EC) 20 mg PO DAILY doxepin 150 mg capsule 150 mg PO QHS Label Comments: TAKE 1 CAPSULE BY MOUTH AT BEDTIME gabapentin 400 mg capsule 400 mg PO Q6H Referrals / Follow Up: Gurmeet Zarate DO [Med Staff - Active Staff] - Within 1 Month Harish Luis Chi, MD [Primary Care Provider] - Within 2 Weeks Disposition Disposition (needs filled in before D/C Order can be placed): Home Health Service
--- NOTE | 2022-08-02 14:38 | PCM.DC.SUM ---
Providers Date of Admission: 07/29/22 Primary Care Physician: Dr. Harish Luis MD Consultations 08/01/22 12:54 Consult: Gastroenterology Routine Consulting Provider: [facility] Reason for Consult: esophageal dysphagia/refulx. EMERGENT Consult: No MD Notified: Yes Date Notified: 08/01/22 Time Notified: 12:54 Method of Notification: Verbal Reason For Visit: PNEUMONIA, HYPOXIA Diagnosis Discharge Diagnosis (1) Pneumonia: Status: Acute Code(s): J18.9 - Pneumonia, unspecified organism Plan: Acute bilateral community-acquired pneumonia-suspected to be bacterial in nature, on a backdrop of influenza B infection IV Levaquin, urine antigen for strep pneumoniae and Legionella, negative. Patient will be given Tamiflu chest x-ray today shows continued bilateral infiltrates. (2) Respiratory failure: Status: Acute Code(s): J96.90 - Respiratory failure, unspecified, unspecified whether with hypoxia or hypercapnia Plan: acute hypoxic respiratory failure-patient presented with increased respiratory rate at 28 and hypoxia on room air, she required 4 L of oxygen via nasal cannula to keep her pulse ox above 90, she had tachypnea and mild conversational dyspnea and the emergency room during the time of her exam according to the emergency room physician. Pulse ox will be monitored, oxygen will be weaned if possible, at the time of this dictation, we are trying to wean the patient down to 2 L via nasal cannula. resolved 2/2 pneumonia and influenza follow up with pulmonary as outpt for PFTs (3) Influenza: Status: Acute Code(s): J11.1 - Influenza due to unidentified influenza virus with other respiratory manifestations Plan: influenza B-patient will be treated with Tamiflu through the (4) Dysphagia: Status: Acute Code(s): R13.10 - Dysphagia, unspecified Plan: Discussed with the patient and her that it seems that some her swelling may be related with difficulty masticating due to issues with her dentures but she is having trouble even with thin liquids which leads me to concerned about either a pharyngeal process or possible vocal esophageal process. Speech therapy recommended modified barium swallow. Patient stated that she would want to have done as outpatient. Discussed with she and her that she is here with pneumonia and I cannot rule that out being aspiration and strongly recommended that she stay. Did tell her that she could do this as outpatient but would be several weeks before that could be done. MBS on 08/01: showed mod-severe oropharyngeal dysphagia and esophageal dysphagia. I discussed with ST, who recommends GI eval for the esophageal reflux. I discussed the recommendations with the patient and her . Patient asked if EGD, if indicated, can be done as outpatient. I told her that it could, however, I recommended that it at least be evaluated while she is here given the severity of her symptoms in addition to her chronic weight loss. I told her I do not know what the etiology of her reflux is if its stenosis, whether or mass or some other process. But I recommended that she be seen by gastroenterology when she was here. Patient did agree. I discussed with Dr. Zarate who will see the patient in consultation. EGD performed and showed grade A esophagitis with biopsies performed. Large amount oif food in the stomach. Dilation performed in esophagus. Updated patient and her . Unclear if she has gastroparesis, but she will need a gastric empyting study. This can be done as outpt w GI follow up. Also, with the oropharyngeal dysphagia, it is concerning that the may have a neurological disorder. 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 Medications at Discharge Home Medications Topiramate 25 mg PO BID migraines 02/17/20 buspirone 7.5 mg tablet 7.5 mg PO BID Check with primary doctor 02/17/20 clonazepam 1 mg tablet 1 mg PO TID anxiety 02/17/20 trazodone 150 mg tablet 150 mg PO QHS 02/17/20 doxepin 150 mg capsule 150 mg PO QHS Check with primary doctor 04/20/22 gabapentin 400 mg capsule 400 mg PO Q6H Check with primary doctor 04/20/22 omeprazole 20 mg capsule,delayed release 20 mg PO DAILY Check with primary doctor 04/20/22 acetaminophen 325 mg tablet 650 mg PO Q6H PRN PRN Pain 1-10 Or Fever >100.7 #0 tabs 08/02/22 levofloxacin 750 mg tablet 750 mg PO DAILY #3 tabs 08/02/22 oseltamivir 30 mg capsule 30 mg PO BID #1 cap 08/02/22 Hospital Course Operations None Procedures EGD Summary of Care Provided Minutes Spent on Discharge: 35 Hospital Course: 70-year-old female presents with shortness of breath. Patient was found to have a right lower lobe pneumonia as well as influenza B. Patient started levofloxacin and oseltamivir. Patient was seen by speech therapy and there is seeming concerned that they had recommended barium swallow. Amy, patient agreed. Barium swallow showed oropharyngeal as well as esophageal dysphagia with esophageal reflux. Patient was then recommend to have an EGD which she had today that showed esophageal erosions and patient did have dilation of her esophagus but no obvious mass or webs or strictures noted. It is very concerning from this provider that the patient may have underlying neurodegenerative process. Patient does have history of scoliosis which required extensive back surgery but she has progressively gotten worse and having progressive weakness as well as oropharyngeal dysphagia. I told him that I am concerned about a movement disorder and stated they are welcome to follow-up with a neurologist that may be general but I would recommend following up more specialized neurologist had a movement disorder center such as the [facility] or [facility]. Patient was seen on multidisciplinary rounds today and all of this was again discussed with them. Initial plan was to patient go home with home health services, however they are wishing to follow-up with her primary care provider to see if that would be necessary and will proceed with that if they feel that it is not necessary. Weight / BMI Weight Weight: 54.88 kg Body Mass Index (BMI) 21.4 ABG / Lab / Microbiology Data Result Diagrams: 07/30/22 05:55 07/30/22 05:55 Microbiology: Microbiology 07/29/22 08:23 Blood Culture (Wb) - Anticubital Left Blood Culture - Preliminary No growth in 48 hours. 07/30/22 23:55 Urine Catheter - Bass Streptococcus pneumoniae Antigen (M - Final 07/30/22 23:55 Urine Catheter - Bass Legionella Antigen - Final 07/29/22 07:46 Nasal Secretion SARS-CoV-2 & FLU Antigen (Rapid) - Final Influenzae B D/C Instructions Discharge Diet: Swallowing Precautions (Direct supervision, Liquids by tsp only, double swallow, Ensure Compact TID w/meals) Call your doctor if you observe: Shortness of breath Meaningful Use Info Meaningful Use Diagnoses (Choose all that apply): None applicable Discharge Plan Admission Admit Date/Time: 07/29/22 09:27 Primary Reason for Your Visit: Pneumonia, Influenza B, dysphagia. Attending Provider: Doni Hanson Primary Care Provider: Harish Luis Chi Consulting Providers: Rafita Siddiqui Additional Instructions / Restrictions: You have pneumonia and influenza. Please take antibiotics as directed. Please follow up with Dr. Zarate of gastroenterology for biopsy results and referral for a gastric emptying study. I would be concerned about a movement disorder and recommended she be seen at a movement disorder clinic (e.g., [facility] [phone], [facility] [phone]) Discharge Orders/Prescriptions Prescriptions: New acetaminophen 325 mg Tablet 650 mg PO Q6H PRN PRN (Reason: Pain 1-10 Or Fever >100.7) Qty: 0 0RF oseltamivir 30 mg Capsule 30 mg PO BID Qty: 1 0RF levofloxacin 750 mg tablet 750 mg PO DAILY Qty: 3 0RF Continued clonazepam 1 MG tablet 1 mg PO TID buspirone 7.5 MG tablet 7.5 mg PO BID Topiramate 25 MG tablet 25 mg PO BID trazodone 150 MG tablet 150 mg PO QHS omeprazole 20 mg capsule,delayed release(DR/EC) 20 mg PO DAILY doxepin 150 mg capsule 150 mg PO QHS Label Comments: TAKE 1 CAPSULE BY MOUTH AT BEDTIME gabapentin 400 mg capsule 400 mg PO Q6H Referrals / Follow Up: Gurmeet Zarate DO [Med Staff - Active Staff] - Within 1 Month Harish Luis Chi, MD [Primary Care Provider] - Within 2 Weeks Disposition Disposition (needs filled in before D/C Order can be placed): Home, Self Care Charges/Coding Visit Charges Inpatient E&M: 85058 Disch Hosp >30min
[2022-08-02] MEDS: Oseltamivir Phosphate 30 MG Capsule PO ×2 (15:02→21:19)
[2022-08-02] MEDS: Topiramate 100 MG Tablet PO ×2 (15:02→21:25)
[2022-08-02] MEDS: Pantoprazole Sodium 20 MG Tablet PO (15:02)
[2022-08-02] MEDS: Heparin Injection (Vial) 5,000 UNIT/ML VIAL 5000 UNIT SC ×2 (15:02→21:20)
--- NOTE | 2022-08-02 15:23 | CASEMGMT ---
HERON CM in to discuss needs at discharge. Therapy recommend HHC at discharge. A list of HHC providers including quality and resource use data and consistent with the patient?s preferred geographical region, medical needs, and insurance network were provided from the [facility] Guide. Patient is declining HHC at this time. HERON ARREDONDO advised patient and to follow up with PCP if they should reconsider HHC or outpatient therapy. Patient does qualify for home oxygen. Patient prefers [employer]. Script received and referral sent via [facility] to [facility]. Patient and had no further questions or concerns at this time.
--- NOTE | 2022-08-02 15:32 | PHA.DC.MC ---
Pharmacy Service has performed discharge medication reconciliation and counseling for this patient. 1. LEVOFLOXACIN 750MG PO DAILY X 3 DAYS 2. OSELTAMIVIR 30MG PO X1 TONIGHT The patient's discharge medication list was reviewed for discrepancies and discrepancies were resolved. Home Medications Topiramate 25 mg PO BID migraines 02/17/20 buspirone 7.5 mg tablet 7.5 mg PO BID Check with primary doctor 02/17/20 clonazepam 1 mg tablet 1 mg PO TID anxiety 02/17/20 trazodone 150 mg tablet 150 mg PO QHS 02/17/20 doxepin 150 mg capsule 150 mg PO QHS Check with primary doctor 04/20/22 gabapentin 400 mg capsule 400 mg PO Q6H Check with primary doctor 04/20/22 omeprazole 20 mg capsule,delayed release 20 mg PO DAILY Check with primary doctor 04/20/22 acetaminophen 325 mg tablet 650 mg PO Q6H PRN PRN Pain 1-10 Or Fever >100.7 #0 tabs 08/02/22 levofloxacin 750 mg tablet 750 mg PO DAILY #3 tabs 08/02/22 oseltamivir 30 mg capsule (Tamiflu) 30 mg PO .once #1 cap 08/02/22 The patient was counseled on the following discharge medications and changes in medications for homegoing were reviewed. The Reason for Use, instructions for use, and potential side effects were reviewed for all new medications. The patient's questions regarding all of their medications were answered. The patient was able to verbally demonstrate an understanding of their discharge medications.
--- NOTE | 2022-08-02 18:20 | CT_ITS ---
We are attempting to reach an attending provider to discuss findings. An addendum with communication details will be sent when the communication is complete. INDICATION: stroke EXAMINATION: CT BRAIN - CT Head Stroke Protocol W/O Contrast Injection TECHNIQUE: Multiple axial images were obtained of the head without intravenous contrast. A radiation dose optimization technique was used for this scan. IV Contrast dosage and agent: None. RADIATION DOSAGE (If Supplied By Facility): CTDIvol = ( ) mGy, DLP = ( ) mGycm COMPARISON: July 06, 2022 FINDINGS: BRAIN PARENCHYMA: Moderate cortical and central atrophy. Mild chronic microvascular ischemic change periventricular white matter. Mild cerebellar atrophy. CALVARIUM, SKULL BASE, PARANASAL SINUSES AND MASTOID AIR CELLS: Clear. No discrete lytic or blastic abnormalities. ORBITS: Both globes, extraocular muscles, optic nerves and retrobulbar fat appear unremarkable. ASPECTS Score for Acute Strokes: [address]/STROKE Brain/Head without Cont IMPRESSION: Moderate cortical, central, and mild cerebellar atrophy. Mild chronic microvascular ischemic change in the periventricular white matter. Electronically Signed: Rafita Walker MD, JOLEEN at 18:33 EDT ,
--- NOTE | 2022-08-02 18:20 | CT_ITS ---
STUDY: CTA HEAD AND NECK WITH CONTRAST REASON FOR EXAM: Female, 72 years old. stroke like symptoms RADIATION DOSAGE (If Supplied By Facility): CTDIvol = ( 23.16 ) mGy, DLP = ( 712.89 ) mGycm TECHNIQUE: CT angiography was performed with a multi-detector CT scanner. Data acquisition was obtained from the skull base through the vertex following intravenous administration of IV 100mL Isovue-370. MIP images were reconstructed from the axial data set. Post-processing of the angiographic images was performed, with multiplanar reformation and 3D reconstruction. Individualized dose optimization techniques were used for this CT. COMPARISON: No relevant priors. FINDINGS: Normal bilateral petrous carotid arteries. Mild calcific plaquing of the right cavernous carotid artery with a normal supraclinoid bifurcation. Mild calcific plaquing of the left cavernous carotid artery with a normal supraclinoid bifurcation. Normal right A1 segments of the anterior cerebral artery. Normal left A1 segments of the anterior cerebral artery. Normal intact anterior communicating artery (ACOM). Normal bilateral A2 segments of the anterior cerebral arteries. Normal right M1 and M2 segments of the middle cerebral arteries, with a normal M1 bifurcation. Normal left M1 and M2 segments of the middle cerebral arteries, with a normal M1 bifurcation. Nonvisualized right posterior communicating artery (PCOM). Normal left posterior communicating artery (PCOM). Normal bilateral vertebral arteries. Normal basilar artery with a normal basilar bifurcation. The visualized bilateral superior cerebellar (SCA) arteries are normal. Normal bilateral P1, P2 and visualized P3 segments of the posterior cerebral arteries. There is no demonstrated aneurysm of the [place]. AORTIC ARCH: Normal visualized aortic arch. Normal origins of the brachiocephalic, left common carotid, and left subclavian arteries. RIGHT CAROTID ARTERIES: Minor soft and calcific plaquing of the right common carotid artery (CCA). Minor calcific plaquing of the right common carotid bulb. Normal origin of the right internal carotid (ICA) artery without a hemodynamically significant stenosis. Normal visualized cervical portion of the right internal carotid artery. Normal origin of the right external carotid artery (ECA). LEFT CAROTID ARTERIES: Mild multifocal calcific plaquing of the left common carotid artery (CCA). Normal left common carotid bulb. Moderate atherosclerotic plaquing of the origin of the left internal carotid (ICA) artery without a hemodynamically significant stenosis. Normal visualized cervical portion of the left internal carotid artery. Normal origin of the left external carotid artery (ECA). VERTEBRAL ARTERIES: Normal bilateral vertebral arteries. CT/STROKE CTA Head AND Neck W/Con IMPRESSION: Minor atherosclerotic disease in the brain without significant stenosis. Mild atherosclerosis of the left carotid and more moderate disease on the right with most severe involvement of the origin of the right internal carotid demonstrating approximately 50-69% stenosis utilizing NASCET criteria. This may be further assessed with catheter angiography if clinically warranted N.B. : The above Results were Read Back by Demond Campbell MD to Ezekiel Markham RN, and understanding confirmed on 08/02/2022 19:01:13 (ET). Electronically Signed: Demond Campbell MD at 19:00 EDT ,
--- NOTE | 2022-08-02 18:25 | PCM.HOSP.N ---
Hospitalist Note Stroke alert was called at ~ 6:15pm after patient was found to be unsteady on her feat whilst walking and also noted to have a mild facial droop. Per her nurse, she was leaning more towards one side. Patient had actually been discharged today and was being prepared for discharge home when the above symptoms were noted. She was sent down for emergent CT brain. CTA head and neck was also ordered. CT of the brain done was negative for any acute intracranial pathology and showed no evidence of a stroke. [facility] telestroke neurology was consulted and reviewed patient to the ED. Patient had NIH stroke scale of 0 at time of review. Per discussion with [facility] telestroke neurology, patient does not meet criteria for tenecteplase. [facility] telestroke neurolog[facility] also reviewed CT of the brain and said it did not show any evidence of a stroke. Will place patient on NIH stroke scale. Stroke protocol as concern is patient may have had a TIA. Aspirin 325 mg x [address] patient on p.o. aspirin 81 mg daily and atorvastatin 80 mg nightly. 2D echo ordered. Monitor NIH stroke score. For MRI of the brain tomorrow and 2D echo also ordered. CTA of the head and neck ordered and pending. To call [facility] telestroke neurology back if CTA head and neck shows any evidence of large vessel occlusion.
--- NOTE | 2022-08-02 18:48 | CASEMGMT ---
Social Work SW responded to stroke alert and introduced herself and role to patient's . SW reviewed [facility] response to stroke alert and explained an alert does not confirm a stroke. SW offered emotional support. Patient's voiced understanding and explained patient was getting discharged home, however, patient's was concerned with patient's limited mobility. SW inquired about interest in HHC or SNF to further assist with needs, patient's explained they had declined those options but planned to discuss HHC options after discharge. Patient's voiced no other needs. Rachell Lucero MSW, MARISOL
--- NOTE | 2022-08-02 18:57 | ECHOD_ITS ---
Reason For Study: TIA/CVA Procedure This was a 2D Doppler, Color Flow transthoracic echocardiogram. Exam performed portable in patient room. Left Ventricle Normal left ventricle. The estimated ejection fraction is 55-60 %. Right Ventricle Normal right ventricle. Normal systolic function. Atria Normal left atrium. Normal right atrium. Bubble contrast study is negative for PFO/ASD. Intact atrial septum. Mitral Valve The mitral valve is structurally normal. No prolapse or stenosis seen. No mitral valve insufficiency. Tricuspid Valve Normal tricuspid valve. Trivial eccentric tricuspid valve insufficiency. Aortic Valve Normal aortic valve. Pulmonic Valve The pulmonic valve is not well visualized. Mild (1+) pulmonic valve insufficiency. Great Vessels Normal aortic root. Pericardium/Pleural No pericardial effusion. Medication Performed a rapid injection of agitated mix of 9 cc saline and 1cc air to assess for atrial septal defect. MMode/2D Measurements & Calculations LVIDd: 4.4 cm IVSd: 0.90 cm LA dimension: 3.2 cm LVIDs: 2.7 cm LVPWd: 0.74 cm RVDd: 3.5 cm FS: 39.3 % LAV(MOD-bp): 47.4 ml LA A4 area: 17.9 cm2 RA A4 area: 12.7 cm2 LAV(MOD-bp) Indexed: 30.4 ml/m2 LAV(MOD-sp2): 38.4 ml LAV(MOD-sp4): 47.9 ml Time Measurements MV dec time: 0.19 sec Doppler Measurements & Calculations MV E max yandel: 75.8 cm/sec Lat Peak E' Yandel: 10.8 cm/sec Med Peak E' Yandel: 9.7 cm/sec MV A max yandel: 92.5 cm/sec E/E' lat: 7.0 E/E' med: 7.8 MV E/A: 0.82 MV V2 max: 90.5 cm/sec MV P1/2t max yandel: 90.5 cm/sec Ao V2 max: 119.9 cm/sec MV max P.3 mmHg MV P1/2t: 70.8 msec Ao max P.7 mmHg MV V2 mean: 50.8 cm/sec MV dec slope: 374.6 cm/sec2 Ao V2 mean: 83.9 cm/sec MV mean P.2 mmHg Ao mean P.2 mmHg MV V2 VTI: 33.2 cm MVA(P1/2t): 3.1 cm2 Ao V2 VTI: 29.6 cm AV (velocity ratio): 0.74 LV V1 max: 90.7 cm/sec PA V2 max: 102.7 cm/sec TR max yandel: 214.0 cm/sec LV V1 max P.3 mmHg PA V2 mean: 60.4 cm/sec TR max P.3 mmHg LV V1 mean P.7 mmHg LV V1 mean: 61.1 cm/sec LV V1 VTI: 21.8 cm ECHO/Echo Complete Interpretation Summary The estimated ejection fraction is 55-60 %. Normal LV systolic function Grade 1 diastolic dysfunction Negative bubble study Ordering Physician: Sondra Rooney Referring Physician: Harish Luis Chi Performed By: Patrick Wright RCS
[2022-08-02 19:11] LABS: Bedside Glucose 109 mg/dL (74-106)
[2022-08-02] MEDS: Tamsulosin HCl 0.4 MG Capsule 0.8 MG PO (21:14)
[2022-08-02] MEDS: traZODone 50 MG Tablet 150 MG PO (21:17)
[2022-08-02] MEDS: DOXEPIN HCL 50 MG CAPSULE 150 MG PO (21:18)
[2022-08-02] MEDS: Atorvastatin Calcium 80 MG Tablet PO (21:24)
[2022-08-02] MEDS: Aspirin 325 MG Tablet PO (21:24)
[2022-08-02] MEDS: 0.9% Saline Lock 10 ML Syringe IV (21:30)
[2022-08-03] VITALS (9 sets, daily range): BP systolic 104–133; BP diastolic 64–81; PULSE 63–76; RESP 16–18; TEMP 36.1–36.8; O2SAT 88–98; BMI 21.4
[2022-08-03] MEDS: 0.9% Normal Saline 1,000 ML 75 ML IV (05:58)
[2022-08-03 06:51] LABS: Cholesterol 176 mg/dL (200); High Density Lipoprotein 52 mg/dL; Triglycerides 79 mg/dL; Very Low Density Lipoprotein 16 mg/dL (5-40)
--- NOTE | 2022-08-03 07:00 | PN_ITS ---
Subjective Subjective Patient underwent an egd yesterday for dysphagia. She is more alert today. She states that she wants to go home. Objective Data Objective Data Vital Signs: Vital Signs Temp Pulse Resp BP Pulse Ox O2 Del Method O2 Flow Rate 98.1 F 66 16 133/81 H 93 Room Air 0 08/03/22 15:30 08/03/22 15:30 08/03/22 15:30 08/03/22 15:30 08/03/22 15:30 08/03/22 15:30 08/03/22 11:31 Oxygen Flow Rate (L/min) [ 2 AMBULATING with Oxygen #1] Oxygen Flow Rate (L/min) [ 0 AMBULATING on Room Air] Oxygen Flow Rate (L/min) [At 0 REST on Room Air] Oxygen Flow Rate (L/min) 2 Oxygen Delivery Method Room Air Weight: 120 lb 15.835 oz Body Mass Index (BMI) 21.4 Intake & Output: Intake and Output for Last 24 Hours 08/01/22 08/02/22 08/03/22 23:59 23:59 23:59 Intake Total 50 / 2006.50 1794.75 / 1794.75 1407.50 / 1407.50 Output Total 2250 / 2650 1850 / 1850 Balance -242.50 / -642.50 -55.25 / -55.25 1407.50 / 1407.50 Lab / Micro Data Result Diagrams: 07/30/22 05:55 07/30/22 05:55 Labs: Laboratory Results - last 24 hr 08/03/22 05:40: Triglycerides 79, Cholesterol 176, LDL Cholesterol 108, VLDL Cholesterol 16, HDL Cholesterol 52 Micro: Microbiology 07/29/22 08:23 Blood Culture (Wb) - Anticubital Left Blood Culture - Final No growth in 5 days. 07/30/22 23:55 Urine Catheter - Bass Streptococcus pneumoniae Antigen (M - Final 07/30/22 23:55 Urine Catheter - Bass Legionella Antigen - Final 07/29/22 07:46 Nasal Secretion SARS-CoV-2 & FLU Antigen (Rapid) - Final Influenzae B Radiography Diagnostic Testing: Radiology Impression Brain CT 08/02/22 18:20 IMPRESSION: Moderate cortical, central, and mild cerebellar atrophy. Mild chronic microvascular ischemic change in the periventricular white matter. N.B. : The above Results were Read Back by Rafita Walker MD, JOLEEN to Sondra Rooney MD, and understanding confirmed on 08/02/2022 18:36:19 (ET). Electronically Signed: Rafita Wlaker MD, JD at 18:33 EDT , ADDENDUM: 08/03/22 0726 IMPRESSION: undefined Head/Neck CTA 08/02/22 18:20 IMPRESSION: Minor atherosclerotic disease in the brain without significant stenosis. Mild atherosclerosis of the left carotid and more moderate disease on the right with most severe involvement of the origin of the right internal carotid demonstrating approximately 50-69% stenosis utilizing NASCET criteria. This may be further assessed with catheter angiography if clinically warranted N.B. : The above Results were Read Back by Demond Campbell MD to Ezekiel Markham RN, and understanding confirmed on 08/02/2022 19:01:13 (ET). Electronically Signed: Demond Campbell MD at 19:00 EDT , Echocardiogram 08/02/22 18:57 Interpretation Summary The estimated ejection fraction is 55-60 %. Normal LV systolic function Grade 1 diastolic dysfunction Negative bubble study Ordering Physician: Sondra Rooney Referring Physician: Harish Luis Chi Performed By: Patrick Wright RCS Physical Exam Const alert and no apparent distress Constitutional Narrative: More alert today. Eyes Eyes Narrative: Impaired vertical saccades of the eyes bilaterally. Resp normal respiratory effort, no retractions, no use of accessory muscles and clear to auscultation bilaterally Cardio regular rate, regular rhythm, S1 normal heart sound and S2 normal heart sound GI normal to inspection, nondistended, normoactive bowel sounds, soft to palpation, non-tender and non-distended Neuro CN's II-XII intact bilaterally Neuro Narrative: Muscle strength 5 out of 5 in upper extremities bilaterally. 3 out of 5 in lower extremities bilaterally. Coordination / Balance: [id number] test normal Assessment & Plan Assessment/Plan (1) Pneumonia: PLAN: Acute bilateral community-acquired pneumonia-suspected to be bacterial in nature, on a backdrop of influenza B infection IV Levaquin, urine antigen for strep pneumoniae and Legionella, negative. Completed oseltamivir (2) Respiratory failure: (3) Influenza: (4) Dysphagia: PLAN: Discussed with the patient and her that it seems that some her swelling may be related with difficulty masticating due to issues with her dentures but she is having trouble even with thin liquids which leads me to concerned about either a pharyngeal process or possible vocal esophageal process. Speech therapy recommended modified barium swallow. Patient stated that she would want to have done as outpatient. Discussed with she and her that she is here with pneumonia and I cannot rule that out being aspira tion and strongly recommended that she stay. Did tell her that she could do this as outpatient but would be several weeks before that could be done. MBS on 08/01: showed mod-severe oropharyngeal dysphagia and esophageal dysphagia. I discussed with ST, who recommends GI eval for the esophageal reflux. I discussed the recommendations with the patient and her . Patient asked if EGD, if indicated, can be done as outpatient. I told her that it could, however, I recommended that it at least be evaluated while she is here given the severity of her symptoms in addition to her chronic weight loss. I told her I do not know what the etiology of her reflux is if its stenosis, whether or mass or some other process. But I recommended that she be seen by gastroenterology when she was here. Patient did agree. I discussed with Dr. Zarate who will see the patient in consultation. EGD performed and showed grade A esophagitis with biopsies performed. Large amount oif food in the stomach. Dilation performed in esophagus. Updated patient and her . Unclear if she has gastroparesis, but she will need a gastric empyting study. This can be done as outpt w GI follow up. Also, with the oropharyngeal dysphagia, it is concerning that the may have a neurological disorder. With her imbalance, progressive weakness I would be concerned about a movement disorder and recommended she be seen at a movement disorder clinic (e.g., [facility] [phone], [facility] [phone]) (5) Facial droop: Charges/Coding Visit Charges Inpatient E&M: 94669 Subs Hosp L3
[2022-08-03] MEDS: Ipratropium/Albuterol Sulfate 3 ML AMPUL.NEB INHALATION (07:10)
--- NOTE | 2022-08-03 08:39 | PCM.PN.HOSP ---
Reason for Visit Reason for Visit: Diagnoses Influenza due to unidentified influenza virus with other respiratory manifestations (07/29/22) Pneumonia, unspecified organism (07/29/22) Respiratory failure, unspecified, unspecified whether with hypoxia or hypercapnia (07/29/22) Dysphagia, unspecified (07/29/22) Subjective Subjective Last night, patient was noted to be leaning towards her left and was having left facial droop. Today, the patient is doing better. Objective Data Objective Data Vital Signs: Vital Signs Temp Pulse Resp BP Pulse Ox O2 Del Method O2 Flow Rate 36.6 C 65 18 124/67 H 93 Nasal Cannula 2 08/03/22 06:24 08/03/22 07:10 08/03/22 07:10 08/03/22 06:24 08/03/22 07:10 08/03/22 07:10 08/03/22 07:10 Oxygen Flow Rate (L/min) [ 2 AMBULATING with Oxygen #1] Oxygen Flow Rate (L/min) [ 0 AMBULATING on Room Air] Oxygen Flow Rate (L/min) [At 0 REST on Room Air] Oxygen Flow Rate (L/min) 2 Oxygen Delivery Method Nasal Cannula Weight: 54.88 kg Body Mass Index (BMI) 21.4 Intake & Output: Intake and Output for Last 24 Hours 08/01/22 08/02/22 08/03/22 23:59 23:59 23:59 Intake Total 2006.50 / 2006.50 1794.75 / 1794.75 635 / 635 Output Total 2250 / 2650 1850 / 1850 Balance -242.50 / -642.50 -55.25 / -55.25 635 / 635 Lab / Micro Data Result Diagrams: 07/30/22 05:55 07/30/22 05:55 Labs: Laboratory Results - last 24 hr 08/02/22 18:12: POC Glucose 109 H 08/03/22 05:40: Triglycerides 79, Cholesterol 176, LDL Cholesterol 108, VLDL Cholesterol 16, HDL Cholesterol 52 Micro: Microbiology 07/29/22 08:23 Blood Culture (Wb) - Anticubital Left Blood Culture - Preliminary No growth in 48 hours. 07/30/22 23:55 Urine Catheter - Bass Streptococcus pneumoniae Antigen (M - Final 07/30/22 23:55 Urine Catheter - Bass Legionella Antigen - Final 07/29/22 07:46 Nasal Secretion SARS-CoV-2 & FLU Antigen (Rapid) - Final Influenzae B Radiography Diagnostic Testing: Radiology Impression Brain CT 08/02/22 18:20 IMPRESSION: Moderate cortical, central, and mild cerebellar atrophy. Mild chronic microvascular ischemic change in the periventricular white matter. N.B. : The above Results were Read Back by Rafita Walker MD, JOLEEN to Sondra Rooney MD, and understanding confirmed on 08/02/2022 18:36:19 (ET). Electronically Signed: Rafita Walker MD, JD at 18:33 EDT , ADDENDUM: 08/03/22 07 IMPRESSION: undefined Head/Neck CTA 08/02/22 18:20 IMPRESSION: Minor atherosclerotic disease in the brain without significant stenosis. Mild atherosclerosis of the left carotid and more moderate disease on the right with most severe involvement of the origin of the right internal carotid demonstrating approximately 50-69% stenosis utilizing NASCET criteria. This may be further assessed with catheter angiography if clinically warranted N.B. : The above Results were Read Back by Demond Campbell MD to Ezekiel Markham RN, and understanding confirmed on 08/02/2022 19:01:13 (ET). Electronically Signed: Demond Campbell MD at 19:00 EDT , Physical Exam Const alert and no apparent distress Constitutional Narrative: More alert today. Eyes Eyes Narrative: Impaired vertical saccades of the eyes bilaterally. Resp normal respiratory effort, no retractions, no use of accessory muscles and clear to auscultation bilaterally Cardio regular rate, regular rhythm, S1 normal heart sound and S2 normal heart sound GI normal to inspection, nondistended, normoactive bowel sounds, soft to palpation, non-tender and non-distended Neuro CN's II-XII intact bilaterally Neuro Narrative: Muscle strength 5 out of 5 in upper extremities bilaterally. 3 out of 5 in lower extremities bilaterally. Coordination / Balance: [id number] test normal Assessment & Plan Assessment/Plan (1) Pneumonia: PLAN: Acute bilateral community-acquired pneumonia-suspected to be bacterial in nature, on a backdrop of influenza B infection IV Levaquin, urine antigen for strep pneumoniae and Legionella, negative. Completed oseltamivir (2) Respiratory failure: PLAN: acute hypoxic respiratory failure-patient presented with increased respiratory rate at 28 and hypoxia on room air, she required 4 L of oxygen via nasal cannula to keep her pulse ox above 90, she had tachypnea and mild conversational dyspnea and the emergency room during the time of her exam according to the emergency room physician. Pulse ox will be monitored, oxygen will be weaned if possible, at the time of this dictation, we are trying to wean the patient down to 2 L via nasal cannula. resolved 2/2 pneumonia and influenza follow up with pulmonary as outpt for PFTs (3) Influenza: PLAN: influenza B-patient will be treated with Tamiflu through the (4) Dysphagia: PLAN: Discussed with the patient and her that it seems that some her swelling may be related with difficulty masticating due to issues with her dentures but she is having trouble even with thin liquids which leads me to concerned about either a pharyngeal process or possible vocal esophageal process. Speech therapy recommended modified barium swallow. Patient stated that she would want to have done as outpatient. Discussed with she and her that she is here with pneumonia and I cannot rule that out being aspiration and strongly recommended that she stay. Did tell her that she could do this as outpatient but would be several weeks before that could be done. MBS on 08/01: showed mod-severe oropharyngeal dysphagia and esophageal dysphagia. I discussed with ST, who recommends GI eval for the esophageal reflux. I discussed the recommendations with the patient and her . Patient asked if EGD, if indicated, can be done as outpatient. I told her that it could, however, I recommended that it at least be evaluated while she is here given the severity of her symptoms in addition to her chronic weight loss. I told her I do not know what the etiology of her reflux is if its stenosis, whether or mass or some other process. But I recommended that she be seen by gastroenterology when she was here. Patient did agree. I discussed with Dr. Zarate who will see the patient in consultation. EGD performed and showed grade A esophagitis with biopsies performed. Large amount oif food in the stomach. Dilation performed in esophagus. Updated patient and her . Unclear if she has gastroparesis, but she will need a gastric empyting study. This can be done as outpt w GI follow up. Also, with the oropharyngeal dysphagia, it is concerning that the may have a neurological disorder. With her imbalance, progressive weakness I would be concerned about a movement disorder and recommended she be seen at a movement disorder clinic (e.g., [facility] [phone], [facility] [phone]) (5) Facial droop: PLAN: Stroke alert called at 1815 on 08/02 CTA of head and neck showed DELIA stenosis of 50-69% on ASA and atorvastatin MRI unable to be safely performed as patient does have a history of a spinal stimulator. The battery has been removed but MRI is unable to determine if that could be done safely. In the absence of any new neurologic symptoms I do not feel the patient did have a stroke but as a had mentioned previously I am concerned the patient does have some underlying movement disorder, such as progressive supranuclear palsy, MSA or even Parkinson's. 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
[2022-08-03] MEDS: Gabapentin 400 MG Capsule PO (12:10)
[2022-08-03] MEDS: Topiramate 100 MG Tablet PO (12:11)
[2022-08-03] MEDS: Pantoprazole Sodium 20 MG Tablet PO (12:11)
[2022-08-03] MEDS: Aspirin 81 MG TAB.CHEW PO (12:11)
[2022-08-03] MEDS: Heparin Injection (Vial) 5,000 UNIT/ML VIAL 5000 UNIT SC (12:13)
--- NOTE | 2022-08-03 13:50 | CASEMGMT ---
Discharge Planning SNF list created and given to SW. Nicole Lopez
--- NOTE | 2022-08-03 13:56 | CASEMGMT ---
SW was informed patient's would like patient to go to a [facility] facility. D/c environmental planning engineer Nicole printed a list. SW went to patient's room. Introduced self and role at [facility]. Patient's confirmed he feels patient needs to go somewhere for rehab. SW provided patient's with a list of [facility] facility providers including quality and resource use data and consistent with patient?s preferred geographic region, medical needs, and insurance network were provided from the [employer] [facility]. SW let him know he would need to pick at least 3 facilities he would be okay with and SW will check with the facilities. SW will check back. Jessenia DAMON
--- NOTE | 2022-08-03 14:35 | CASEMGMT ---
SW went back to [facility]'s room to find out their options for long term facility. Patient's gave 3 options. Patient then said she is not going to anywhere. Patient said she is going home. SW tried to explain to patient that it is being strongly recommended that she go somewhere for rehab. SW explained that after working with her today therapy feels she is not safe for home. Patient's said she needs to listen to him at home. She has to use the walker and she has to have someone with her when she walks. Patient said her daughter or will help her. Patient said she would listen to her . Patient's and SW attempted to get patient to understand that she would really benefit from going somewhere for at least a week. Patient was not in agreement. SW asked about home health and patient's said not right now. Patient's asked what to do if it does not work out. SW let him know to contact her primary care doctor to see if they can assist with placement. SW notified physician. Jessenia DAMON
[2022-08-03] MEDS: clonazePAM 1 MG Tablet PO (15:27)
--- NOTE | 2022-08-03 15:54 | CASEMGMT ---
Addendum entered by Brea Cannon 08/03/22 16:01: Referral made to [facility] and arranged for portable tank delivery Original Note: RN MARIA ELENA updated that patient qualifies for home oxygen. HERON ARREDONDO back to room. does not want [employer]. DME list provided to patient that are in-network with her insurance. requesting [facility]. is wanting go home now and does not want to wait for oxygen tank to be delivered to hospital for patient. HERON ARREDONDO educated on the importance of waiting for portable oxygen tank to be delivered to patient prior to discharge. Patient and had no further questions or concerns at this time.
== END 2022-08-03 17:16 | disposition home or self-care (01) | DRG 177 ==
LOC: ED 09:29 → PCU 11:58
PROVIDERS: Internal Medicine Gastroenterology; Student in an Organized Health Care Education/Training Program; Admitting Provider Internal Medicine; Emergency Provider Emergency Medicine; PCP Family Medicine Geriatric Medicine
PROC: 0DJ08ZZ Inspection of Upper Intestinal Tract, Via Natural or Artificial Opening Endoscopic (ICD-10-PCS; CPT 43235; principal; 2022-08-02 12:25)
DX: J69.0 Pneumonitis due to inhalation of food and vomit (principal); J96.01 Acute respiratory failure with hypoxia; G25.9 Extrapyramidal and movement disorder, unspecified; K22.10 Ulcer of esophagus without bleeding; M41.86 Other forms of scoliosis, lumbar region; R13.14 Dysphagia, pharyngoesophageal phase; J44.9 Chronic obstructive pulmonary disease, unspecified; J10.08 Influenza due to other identified influenza virus with other specified pneumonia; I10 Essential (primary) hypertension; E78.00 Pure hypercholesterolemia, unspecified; K21.00 Gastro-esophageal reflux disease with esophagitis, without bleeding; M51.36 Other intervertebral disc degeneration, lumbar region; F41.9 Anxiety disorder, unspecified; I65.21 Occlusion and stenosis of right carotid artery; F17.290 Nicotine dependence, other tobacco product, uncomplicated; G89.29 Other chronic pain; R13.12 Dysphagia, oropharyngeal phase; R29.810 Facial weakness; Z98.1 Arthrodesis status; Z79.899 Other long term (current) drug therapy; Z82.3 Family history of stroke
CPT/HCPCS: 36415; 70450; 70496; 70498; 71045; 74230; 80048; 80061; 82962; 83605; 83880; 84484; 85025; 85379; 87040; 87428; 87449; 88305; 88312; 88313; 92526; 92611; 93005; 93306; 94640; 94668; 94762; 97110; 97116; 97161; 97166; 97530; 97535; 97802; 97803; 99252; 99285; J7030; J7050; J7120; Q9967; A4216; G0463; J2405

== ENCOUNTER 2022-08-26 02:41 | Emergency (ER) | payer MEDICARE, SELFPAY ==
[2022-08-26 02:42] VITALS: BP 145/82; PULSE 89; RESP 16; TEMP 36.4; O2SAT 94; BMI 19.6
--- NOTE | 2022-08-26 02:58 | CT_ITS ---
EXAM: CT CERVICAL SPINE WITHOUT INTRAVENOUS CONTRAST CLINICAL INDICATION: injury TECHNIQUE: Helically acquired images were obtained of the cervical spine without intravenous contrast. 2D reformatted images were reviewed. This CT exam was performed using one or more of the following dose reduction techniques: automated exposure control, adjustment of the mA and/or kV according to patient size, and/or use of iterative reconstruction technique. COMPARISON: No relevant prior studies available. FINDINGS: VERTEBRAE: See below. DISCS/SPINAL CANAL/NEURAL FORAMINA: Degenerative changes of the intervertebral discs, including a prominent posterior disc osteophyte complex at C6/7. No critical stenosis. SOFT TISSUES: Unremarkable. No prevertebral soft tissue swelling. VASCULATURE: Carotid artery calcifications. LYMPH NODES: Unremarkable. No cervical adenopathy. LUNG APICES: Unremarkable as visualized. Clear. CT/Spine Cervical without Contras IMPRESSION: 1. No acute injuries identified involving the cervical spine. 2. Degenerative changes. Electronically Signed: Jarek Perera MD at 4:07 EDT ,
--- NOTE | 2022-08-26 02:58 | RAD_ITS ---
EXAM: XR PELVIS, 1 OR 2 VIEWS CLINICAL INDICATION: pain TECHNIQUE: Frontal view of the pelvis. COMPARISON: 01/22/2020 FINDINGS: BONES/JOINTS: Unremarkable. No displaced fracture. No destructive or sclerotic lesions. Note that overlapping bowel shadows may however obscure fine detail. Sacroiliac joints are unremarkable. No widening of the pubic symphysis. The articular structures are unremarkable. SOFT TISSUES: Unremarkable. No soft tissue swelling or gas. TUBES, LINES AND DEVICES: Residual catheter from previous device in the left flank. RAD/Pelvis 1 or 2 Views IMPRESSION: No acute findings in the pelvis. Electronically Signed: Jarek Perera MD at 4:19 EDT ,
--- NOTE | 2022-08-26 02:58 | CT_ITS ---
EXAM: CT HEAD WITHOUT INTRAVENOUS CONTRAST CLINICAL INDICATION: head injury TECHNIQUE: Multiple axial images were obtained of the head without intravenous contrast. This CT exam was performed using one or more of the following dose reduction techniques: automated exposure control, adjustment of the mA and/or kV according to patient size, and/or use of iterative reconstruction technique. COMPARISON: 08/02/2022 FINDINGS: BRAIN AND EXTRA-AXIAL SPACES: Diffuse cerebral volume loss. Periventricular small vessel ischemic changes. No intra- or extra-axial hemorrhage. No intracranial mass or mass effect. Posterior fossa structures are unremarkable. No hydrocephalus. Basal cisterns are patent. BONES/JOINTS: Unremarkable. No discrete lytic or blastic abnormalities. VASCULATURE: Vascular calcifications. SINUSES: Unremarkable as visualized. Clear. MASTOID AIR CELLS: Unremarkable. Clear. ORBITS: Visualized globes, extraocular muscles, optic nerves and retrobulbar fat appear unremarkable. CT/Brain/Head without Contrast IMPRESSION: 1. No acute intracranial abnormalities. 2. Age-related changes. Electronically Signed: Jarek Perera MD at 4:03 EDT ,
[2022-08-26] MEDS: Morphine 4 MG/ML Syringe IV (03:14)
[2022-08-26] MEDS: Ondansetron 4 MG/2 ML Vial IV (03:14)
[2022-08-26] MEDS: Orphenadrine 60 MG/2 ML Ampul IV (03:18)
--- NOTE | 2022-08-26 03:18 | EX.ED.DYSGE1 ---
HPI History of Present Illness Chief Complaint: Fall Informant: patient and spouse/S.O. Narrative Narrative: Patient is a 72-year-old female with past medical history of anxiety depression hypertension hyperlipidemia and scoliosis and chronic back pain. She states that she heard a noise this evening while she was sleeping and awoke thinking someone was in the house. She states she did not wake her but took a flashlight and began walking through the house. She states she was walking down the basement stairs when she lost her balance and fell. states he heard the thud and when he went to check on her she was awake and alert. Patient reports pain in her head and neck at this time but she denies any history of bleeding disorder or blood thinner use. Secondary to the trauma she was brought in for evaluation [facility] Medical History Allergic rhinitis Ambulates with cane Anxiety Arthritis Asthma Back pain Carpal tunnel syndrome on both sides Chronic cough Chronic lower back pain Closed head injury COVID-19 Debility Depression Depression Dysphagia Edema Former smoker Gastric reflux Gastroparesis Generalized weakness GERD High cholesterol History of stress test HLD (hyperlipidemia) Hypertension Hypoxia Insomnia Irritable bowel syndrome without diarrhea Ischemic bowel disease Low back pain Migraine Migraine headache Movement disorder Pain from implanted hardware Palpitations Palpitations Post-menopausal Scoliosis Scoliosis of lumbar spine Segmental and somatic dysfunction of lumbar region Segmental and somatic dysfunction of pelvic region Segmental dysfunction of thoracic region Shortness of breath on exertion SOB (shortness of breath) Stenosis, cervical spine Uses wheelchair Vitamin D deficiency Walker as ambulation aid Wears dentures Wears glasses Wears hearing aid Home Medications Topiramate 25 mg PO BID migraines 02/17/20 [History Last Taken 04/26/22] buspirone 7.5 mg tablet 7.5 mg PO BID Check with primary doctor 02/17/20 [History Last Taken 04/26/22] clonazepam 1 mg tablet 1 mg PO TID anxiety 02/17/20 [History Last Taken 04/26/22] doxepin 150 mg capsule 150 mg PO QHS Check with primary doctor 04/20/22 [History Last Taken 04/26/22] gabapentin 400 mg capsule 400 mg PO Q6H Check with primary doctor 04/20/22 [History Last Taken 04/26/22] acetaminophen 325 mg tablet 650 mg PO Q6H PRN PRN Pain 1-10 Or Fever >100.7 #0 tabs 08/02/22 [Rx Last Taken Unknown] levofloxacin 750 mg tablet 750 mg PO DAILY #3 tabs 08/02/22 [Rx Last Taken Unknown] citalopram 20 mg tablet 20 mg PO DAILY 08/09/22 [History Last Taken Unknown] pantoprazole 40 mg tablet,delayed release 40 mg PO DAILY 08/09/22 [History Last Taken Unknown] Allergy/AdvReac Type Severity Reaction Status Date / Time hydrocodone [From Vicodin] Allergy NERVOUS, Verified 08/26/22 02:45 JITTERY Penicillins Allergy Rash Verified 08/26/22 02:45 Family History Other CVA (cerebral vascular accident) Cancer Hypertension Surgical History History of 2 sections History of cardiac catheterization History of lumbar laminectomy Hx of dilation and curettage Hx of surgical procedure Social History Smoking Status: Former smoker alcohol intake: never substance use type: does not use what type of physical activity do you participate in: none ROS ROS ED Constitutional Constitutional ED: Denies chills or fever(s) Eyes Eyes: Denies blurry vision or change in vision ENT ENT ED: Denies sore throat Cardiovascular Cardiovascular: Denies chest pain Respiratory/Chest Respiratory/Chest: Denies cough or dyspnea Gastrointestinal Gastrointestinal: Denies abdominal pain, diarrhea, nausea or vomiting Genitourinary Genitourinary ED: Denies dysuria Musculoskeletal Musculoskeletal: Reports back pain and neck pain Integumentary Reports Abrasions; Denies rash Neurologic Neurologic: Reports headache(s); Denies paresthesias Psychiatric Psychiatric: Reports anxiety and depression Hematologic/Lymphatic Hematologic/Lymphatic: Denies easy bleeding or easy bruising EXAM Physical Exam Const Vital Signs: 08/26/22 02:42 08/26/22 03:01 08/26/22 04:00 Temperature 97.5 F L Temperature Source Temporal Pulse Rate 89 69 Respiratory Rate 16 15 Respiratory Effort Normal Blood Pressure 145/82 H 143/79 H Blood Pressure Mean 103 100 Pulse Ox 94 95 Oxygen Delivery Method Room Air Positive well nourished and well developed General Appearance ED: well developed HEENT HEENT Narrative: Patient has a 2 x 3 hematoma to the midportion of the frontal bone/forehead that extends slightly into the parietal portion of the scalp. There is also soft tissue swelling and ecchymosis around the left orbit. Otherwise no signs of depressed or basilar skull fracture Eyes PERRL and EOMs intact bilaterally Eyes Narrative: No hyphema Neck supple Neck Narrative: No bony deformity or step-off of the cervical spine but there is midline pain with palpation Chest Wall palpation of chest normal Chest Narrative: No bony deformity or crepitance with palpation of the chest wall Resp normal respiratory effort and clear to auscultation bilaterally Cardio regular rate and regular rhythm GI normal to inspection, nondistended, normoactive bowel sounds, non-tender, non-distended and no masses GI Narrative: No voluntary guarding or rigidity no pulsatile mass No overlying abdominal bruising or pain on palpation Auscultation: normoactive bowel sounds Palpation: soft Back/Spine Back/Spine Narrative: Patient has midline pain with palpation over top her mid to lower thoracic vertebrae. Patient does have chronic changes secondary to previous scoliosis with surgical fixation Extremity Extremity Narrative: Patient is a superficial abrasion to the posterior aspect of the left elbow without bony deformity or joint effusion. Pelvis is stable there is no shortening or external rotation of either lower extremity Patient can lift both arms and legs without difficulty or pain Neuro oriented x3 and CN's II-XII intact bilaterally Sensorium / Orientation: alert Psych Psych Narrative: Patient has a flat affect Skin Skin Narrative: Multiple areas of abrasions and ecchymosis with soft tissue swelling as documented above MDM MDM MDM Narrative Medical decision making narrative: The patient presented to the ER awake and alert with no focal neurologic deficit. She reported a mechanical fall and therefore there is no need for cardiac or syncope work-up. Based on her age and head trauma however she does require CTs of her head and cervical spine to rule out underlying skull fracture epidural versus subdural hematoma or cervical spine injury such as compression fracture or spondylolisthesis or burst fracture. The patient was placed in a c-collar upon arrival based on her midline neck pain and history of fall. CTs of the head and cervical spine were obtained and revealed no acute traumatic finding. Based on the patient's pain of the mid back a thoracic x-ray was ordered and a 1 view pelvis was obtained to rule out underlying pubic rami versus femoral neck fracture. These images also revealed no acute findings. Therefore at this time patient is awake and alert with stable vitals and imaging reveals no signs of acute trauma and therefore she is otherwise safe for discharge. History & Record Review Discussion w/independent historian: Patient and Significant other Radiography Diagnostic Testing: Clinical Impression(s) from Imaging Studies Brain CT 08/26/22 02:58 IMPRESSION: 1. No acute intracranial abnormalities. 2. Age-related changes. Electronically Signed: Jarek Perera MD at 4:03 EDT Reading Location ID and State: [facility] / Station X Tel , Service support , Cervical Spine CT 08/26/22 02:58 IMPRESSION: 1. No acute injuries identified involving the cervical spine. 2. Degenerative changes. Electronically Signed: Jarek Perera MD at 4:07 EDT Reading Location ID and State: [email or web address] / Station X Tel , Service support , Thoracic Spine X-Ray 08/26/22 03:45 IMPRESSION: 1. No acute injuries identified involving the thoracic spine. 2. Degenerative changes. Electronically Signed: Jarek Perera MD at 4:20 EDT Reading Location ID and State: [id number] / Station X Tel , Service support , X-ray of the thoracic spine as interpreted by the emergency medicine physician reveals degenerative changes without acute fracture or spondylolisthesis 1 view pelvis x-ray as interpreted by the emergency medicine physician reveals no acute fracture or dislocation Discharge Plan Triage Chief Complaint: Fall ED Provider: Dannie Potts Dx/Rx/DC Orders Clinical Impression: Closed head injury, Traumatic hematoma, Acute cervical myofascial strain Instructions: ED Head Injury (Adult), ED Hematoma Prescriptions: No Action citalopram 20 mg tablet 20 mg PO DAILY pantoprazole 40 mg tablet,delayed release (DR/EC) 40 mg PO DAILY clonazepam 1 MG tablet 1 mg PO TID buspirone 7.5 MG tablet 7.5 mg PO BID Topiramate 25 MG tablet 25 mg PO BID doxepin 150 mg capsule 150 mg PO QHS Label Comments: TAKE 1 CAPSULE BY MOUTH AT BEDTIME gabapentin 400 mg capsule 400 mg PO Q6H acetaminophen 325 mg Tablet 650 mg PO Q6H PRN PRN (Reason: Pain 1-10 Or Fever >100.7) Qty: 0 0RF levofloxacin 750 mg tablet 750 mg PO DAILY Qty: 3 0RF Primary Care Provider: Harish Luis Chi Referrals: Harish Luis Chi, MD [Primary Care Provider] - Disposition Disposition: Home, Self Care
--- NOTE | 2022-08-26 03:45 | RAD_ITS ---
EXAM: XR THORACIC SPINE, 3 VIEWS CLINICAL INDICATION: pain TECHNIQUE: Frontal, lateral and swimmer''s views of the thoracic spine. COMPARISON: No relevant prior studies available. FINDINGS: VERTEBRAE: Unremarkable. Preserved vertebral body height. No fracture. No spondylolisthesis. Preservation of the normal thoracic kyphosis. No significant facet arthropathy. DISC SPACES: Degenerative changes of the intervertebral discs. TUBES, LINES AND DEVICES: Leads extending into the thoracic spinal canal. RAD/Thoracic Spine 3 Views IMPRESSION: 1. No acute injuries identified involving the thoracic spine. 2. Degenerative changes. Electronically Signed: Jarek Perera MD at 4:20 EDT ,
[2022-08-26 04:00] VITALS: BP 143/79; PULSE 69; RESP 15; O2SAT 95
[2022-08-26 04:35] VITALS: BP 143/79; PULSE 69; RESP 15; O2SAT 95
== END 2022-08-26 05:48 | disposition home or self-care (01) ==
PROVIDERS: Emergency Provider Emergency Medicine; PCP Family Medicine Geriatric Medicine; Visit Provider Emergency Medicine
DX: S09.90XA Unspecified injury of head, initial encounter (principal); S00.83XA Contusion of other part of head, initial encounter; S16.1XXA Strain of muscle, fascia and tendon at neck level, initial encounter; G89.29 Other chronic pain; M54.9 Dorsalgia, unspecified; Z86.16 Personal history of COVID-19; Z87.891 Personal history of nicotine dependence; W10.9XXA Fall (on) (from) unspecified stairs and steps, initial encounter
CPT/HCPCS: 70450; 72072; 72074; 72125; 72170; 96374; 96375; 99283; A4216; J2405

== ENCOUNTER 2022-10-12 16:21 | Outpatient (CLI) | payer MEDICARE, SELFPAY ==
--- NOTE | 2022-10-12 16:24 | CT_ITS ---
STUDY: CT BRAIN WITHOUT CONTRAST REASON FOR EXAM: Female, 72 years old. CLOSED HEAD INJURY RADIATION DOSAGE (If Supplied By Facility): CTDIvol = ( 44.99 ) mGy, DLP = ( 779.24 ) mGycm TECHNIQUE: Transaxial CT imaging of the brain was performed without administration of intravenous contrast material. Individualized dose optimization techniques were used for this CT. COMPARISON: No relevant priors. FINDINGS: Normal soft tissue structures. Normal calvarium. There is mild cerebral atrophy with widening of the extra-axial spaces and ventricular dilatation. Normal white matter tracts of the cerebral hemispheres. Normal basal ganglia and thalami. Normal brainstem. Normal cerebellum. Intracranial atherosclerosis. There is no intracranial hemorrhage. There are no findings of an acute ischemic infarction. Normal visualized paranasal sinuses. CT/Brain/Head without Contrast IMPRESSION: No acute disease Electronically Signed: Oscar Taylor MD at 17:01 EDT ,
--- NOTE | 2022-10-12 16:25 | RAD_ITS ---
STUDY: X-RAY CHEST REASON FOR EXAM: Female, 72 years old. CONGESTION OF RESPIRATORY TRACT TECHNIQUE: Single frontal view of the chest. COMPARISON: July 30, 2022. FINDINGS: 2 intraspinal electrode unchanged in position mid thoracic spine. Bibasilar airspace disease improved. There is no demonstrated pleural abnormality. Normal size heart. Normal mediastinum and renea. Normal visualized pulmonary arteries. Normal visualized aortic arch and descending thoracic aorta. Normal visualized thoracic spine. Normal visualized ribs, clavicles, and shoulders. Gas-filled loops of colon. RAD/Chest PA and Lateral IMPRESSION: Improving bibasilar airspace disease. Possible colonic ileus. Electronically Signed: Oscar Taylor MD at 17:29 EDT ,
--- NOTE | 2022-10-12 16:40 | RAD_ITS ---
STUDY: X-RAY - ABDOMEN/PELVIS REASON FOR EXAM: Female, 72 years old. ABD PAIN TECHNIQUE: Single AP view of the abdomen / pelvis. COMPARISON: January 20, 2022 KUB report only without images FINDINGS: Normal visualized lung bases. Increased stool in the colon. Increased gas. Intraspinal electrodes mid thoracic spine. The visualized liver, spleen and kidneys are grossly normal in size and morphology. Normal soft tissue structures. Moderate dextroconvex scoliosis. RAD/Abdomen Single View IMPRESSION: Increased stool. Ileus. Electronically Signed: Oscar Taylor MD at 17:35 EDT ,
== END 2022-10-12 23:59 | disposition home or self-care (01) ==
PROVIDERS: PCP Family Medicine Geriatric Medicine; Referring Provider Family Medicine Geriatric Medicine; Visit Provider Family Medicine Geriatric Medicine
DX: R10.9 Unspecified abdominal pain (principal); R09.89 Other specified symptoms and signs involving the circulatory and respiratory systems; S09.90XA Unspecified injury of head, initial encounter; X58.XXXA Exposure to other specified factors, initial encounter; R53.83 Other fatigue
CPT/HCPCS: 36415; 70450; 71046; 74018; 80053; 84443; 85025

== ENCOUNTER → 2022-10-12 | Outpatient (CLI) | payer MEDICARE, SELFPAY ==
[2022-10-12 17:37] LABS: Absolute Lymphocyte Count 1.77 X10^3/uL (0.83-4.51); Absolute Neutrophil Count 4.6 X10^3/uL (2.0-7.7); Basophil# 0.06 X10^3/uL; Basophil% 0.8 % (0-1); Eosinophil# 0.11 X10^3/uL; Eosinophils% 1.5 % (0-5); Hematocrit 40.1 % (37-47); Hemoglobin 13.2 g/dL (12.0-15.0); Lymphocyte # 1.77 X10^3/ul (0.83-4.51); Lymphocyte % 24.4 % (19-41); Mean Corp Hgb Conc 32.9 g/dL (32-36); Mean Corpuscular Hgb 31.6 pg (27.0-32.0); Mean Corpuscular Volume 95.9 fL (81-99); Mean Platelet Vol. 10.2 fl (6.2-12.0); Monocyte# 0.65 X10^3/uL; NRBC Flagged by Analyzer 0 % (0-5); Neutrophil # 4.62 X10^3/uL (2.7-7.7); Neutrophil % 63.9 % (47-70); Platelet Count 341 K/mm3 (150-450); RBC Distribution Width CV 13.5 % (11.6-14.6); RBC Distribution Width SD 48.3 fl (35.1-43.9); Red Blood Count 4.18 M/mm3 (4.2-5.4); White Blood Count 7.2 K/mm3 (4.4-11.0)
[2022-10-12 18:00] LABS: ALB/GLOB Ratio 0.8 RATIO (0.9-2.4); AST(SGOT) 22 U/L (15-37); Alanine Aminotransfer ALT/SGPT 17 U/L (13-56); Alkaline Phosphatase 115 U/L (45-117); Anion Gap 6 (5-15); BUN 7 mg/dL (7-18); BUN/Creat Ratio 6.7 RATIO (10-20); Calcium,Total 9.1 mg/dL (8.5-10.1); Chloride 108 mmol/L (98-107); Creatinine, Serum 1.05 mg/dL (0.55-1.02); EST Glomerular Filtration Rate 55 mL/min (>60); Est Glom Filt Rate - Afr Amer 66 mL/min (>60); Globulin 3.9 g/dL (2.2-4.2); Glucose 116 mg/dL (74-106); Potassium 3.6 mmol/L (3.5-5.1); Protein, Total 6.9 g/dL (6.4-8.2); Sodium Level 142 mmol/L (136-145); Thyroid Stim Hormone (TSH) 0.05 uIU/mL (0.358-3.74)
== END | disposition home or self-care (01) ==
PROVIDERS: PCP Family Medicine Geriatric Medicine; Visit Provider Family Medicine Geriatric Medicine
DX: R53.83 Other fatigue (principal)
CPT/HCPCS: 36415; 80053; 84443; 85025

== ENCOUNTER 2022-10-13 10:03 | Inpatient (IN) | payer MEDICARE, SELFPAY ==
[2022-10-13] VITALS (8 sets, daily range): BP systolic 115–133; BP diastolic 59–92; PULSE 65–98; RESP 12–18; TEMP 36.3–36.8; O2SAT 92–99; BMI 18.6; BMI 19.0
[2022-10-13] MEDS: 0.9% Normal Saline 1,000 ML 150 ML IV (10:58)
--- NOTE | 2022-10-13 11:08 | CT_ITS ---
STUDY: CT ABDOMEN AND PELVIS WITH CONTRAST REASON FOR EXAM: Female, 72 years old. illus on x ray, abd pain RADIATION DOSAGE (If Supplied By Facility): CTDIvol = ( 10.07 ) mGy, DLP = ( 331.24 ) mGycm TECHNIQUE: Transaxial images were obtained from the dome of the diaphragm to the symphysis pubis without oral contrast. IV 100mL [id number]-300 was administered. Sagittal and coronal images were reconstructed. Individualized dose optimization techniques were used for this CT. COMPARISON: Comparison is made with prior CT scan done pelvis dated January 23, 2020 and abdominal radiographs dated October 12, 2022. FINDINGS: Scarring and bronchiectasis in the anterior medial aspect of the right middle lobe as well as the lingular segment of the left upper lobe. Stable mild increased linear markings at the lung bases suggestive of scarring. Coronary artery calcification. There is decreased attenuation of the liver consistent with steatosis. Normal gallbladder and extrahepatic biliary system. Normal spleen. Normal pancreas. Normal bilateral adrenal glands. Normal right kidney. Normal left kidney. Normal visualized stomach. Normal small intestine. A large amount of fecal material is seen throughout the colon. Pneumatosis of the right hemicolon. The appendix is visualized and appears normal. There is diffuse atherosclerotic calcification of the abdominal aorta and its major visceral branches, without a demonstrated aneurysm. Normal inferior vena cava. Normal retroperitoneum. Marked degree of a urinary bladder dilatation. Normal abdominal wall. There are diffuse degenerative changes of the visualized lumbar spine. Dextroscoliosis. CT/Abdomen/Pelvis W IV Cont ONLY IMPRESSION: Large amount of fecal material is seen throughout the colon. Pneumatosis seen in the wall of the right hemicolon most likely secondary to the large amount of fecal material. Fatty infiltration of the liver. Distended urinary bladder. Scarring in the lung bases. Electronically Signed: Rafael Sherwood MD at 11:53 EDT ,
--- NOTE | 2022-10-13 11:14 | ED.VIS.GI ---
HPI HPI - GI History of Present Illness Chief Complaint: Abd Pain Informant: patient and spouse/S.O. Narrative Narrative: Patient is a 72-year-old female with history of anxiety (on clonazepam and buspirone) presenting for mental status change and concern for ileus with outpatient x-ray. Patient has been complaining of some intermittent stomach cramps and discomfort for the past week. She did have some having worsening constipation. She states 2 nights ago she had a small soft bowel movement. She does feel bloated has not been passing gas. Her also notes for the past 2 to 3 days her words of just seemed kind of garbled and she seems off. No report of any fever. Patient notes that she has had a hard time starting urination and when she does pee she feels like she pees forever. Patient was recently hospitalized for pneumonia and does continue to have some chest congestion. She followed up with her PCP, Dr. Luis, yesterday because she was still having chest congestion. She had outpatient lab work including KUB and a chest x-ray ordered. Lab work largely normal except her TSH was low. Her chest x-ray showed improving pneumonia and she had KUB that did show an ileus. Patient was sent to the ER for further evaluation. Chart review shows that patient was admitted July 31 through for respiratory failure associated with pneumonia/influenza B. At that time she also had an EGD for dysphagia. [facility] Medical History Allergic rhinitis Ambulates with cane Anxiety Arthritis Asthma Back pain Carpal tunnel syndrome on both sides Chronic cough Chronic lower back pain Closed head injury COVID-19 Debility Depression Depression Dysphagia Edema Former smoker Gastric reflux Gastroparesis Generalized weakness GERD High cholesterol History of stress test HLD (hyperlipidemia) Hypertension Hypoxia Insomnia Irritable bowel syndrome without diarrhea Ischemic bowel disease Low back pain Migraine Migraine headache Movement disorder Pain from implanted hardware Palpitations Palpitations Post-menopausal Scoliosis Scoliosis of lumbar spine Segmental and somatic dysfunction of lumbar region Segmental and somatic dysfunction of pelvic region Segmental dysfunction of thoracic region Shortness of breath on exertion SOB (shortness of breath) Stenosis, cervical spine Uses wheelchair Vitamin D deficiency Walker as ambulation aid Wears dentures Wears glasses Wears hearing aid Home Medications buspirone 7.5 mg tablet 7.5 mg PO BID Check with primary doctor 02/17/20 [History Last Taken 04/26/22] clonazepam 1 mg tablet 1 mg PO TID anxiety 02/17/20 [History Last Taken 04/26/22] gabapentin 400 mg capsule 400 mg PO Q6H Check with primary doctor 04/20/22 [History Last Taken 04/26/22] acetaminophen 325 mg tablet 650 mg (2 x 325 mg) PO Q6H PRN PRN Pain 1-10 Or Fever >100.7 #0 tabs 08/02/22 [Rx Last Taken Unknown] naproxen 500 mg tablet 500 mg PO Q12H 10/13/22 [History Last Taken Unknown] Allergy/AdvReac Type Severity Reaction Status Date / Time hydrocodone [From Vicodin] Allergy NERVOUS, Verified 10/13/22 10:07 JITTERY Penicillins Allergy Rash Verified 10/13/22 10:07 Family History Other CVA (cerebral vascular accident) Cancer Hypertension Surgical History History of 2 sections History of cardiac catheterization History of lumbar laminectomy Hx of dilation and curettage Hx of surgical procedure Social History Smoking Status: Former smoker alcohol intake: never substance use type: does not use what type of physical activity do you participate in: none ROS ROS ED Constitutional Constitutional ED: Denies chills or fever(s) ENT ENT ED: Denies rhinorrhea or sore throat Cardiovascular Cardiovascular: Denies chest pain or palpitations Respiratory/Chest Respiratory/Chest: Reports cough and other Details: chest congestion ; Denies dyspnea Gastrointestinal Gastrointestinal: Reports abdominal pain and constipation; Denies nausea or vomiting Genitourinary Genitourinary ED: Reports other Details: Urinary hesitancy ; Denies dysuria or urinary frequency Musculoskeletal Musculoskeletal: Denies arthralgias or myalgias Integumentary Denies rash Neurologic Neurologic: Denies headache(s) or weakness Psychiatric Psychiatric: Reports anxiety EXAM Physical Exam Const Vital Signs: 10/13/22 10:04 10/13/22 10:25 10/13/22 10:33 Temperature 97.3 F L 98.1 F Temperature Source Temporal Temporal Pulse Rate 98 78 Respiratory Rate 12 14 Respiratory Pattern Normal Blood Pressure 126/83 H 132/72 H Blood Pressure Mean 97 92 Pulse Ox 92 Oxygen Delivery Method Room Air Room Air 10/13/22 12:07 10/13/22 13:00 10/13/22 13:51 Temperature 98.2 F 97.3 F L 97.3 F L Temperature Source Temporal Temporal Temporal Pulse Rate 65 75 74 Respiratory Rate 16 16 16 Respiratory Pattern Blood Pressure 118/69 124/66 H 125/69 H Blood Pressure Mean 85 85 87 Pulse Ox 96 99 95 Oxygen Delivery Method Room Air Room Air Room Air Positive well nourished and well developed General Appearance ED: well developed and NAD HEENT Reports moist mucous membranes normocephalic and atraumatic Eyes PERRL Neck supple and no JVD Resp normal respiratory effort and clear to auscultation bilaterally Cardio regular rate, regular rhythm and no murmurs GI non-distended Auscultation: hypoactive bowel sounds Palpation: soft and tender periumbilical; Negative for guarding or rigid Back/Spine no CVA tenderness Extremity full ROM General Extremety ED: Negative for edema or tenderness General Extremity: Negative for edema Neuro Neuro Narrative: No focal deficits appreciated. While patient answers questions appropriately she also sometimes gives a vague or not quite correct answer initially and then will correct her self. No slurred or garbled speech appreciated. Sensorium / Orientation: oriented to person, oriented to place and oriented to time Psych thought process normal Mood & Affect: anxious Skin no wounds Rashes: no rashes MDM MDM MDM Narrative Medical decision making narrative: Patient is evaluated for vague abdominal discomfort as well as ileus on outpatient imaging. She has been having this vague abdominal scum for about a week. She appears nontoxic. She had lab work yesterday. Her TSH was low so I did check a free T4 and T3 which are normal. Ammonia checked as there is been no report of mental status changes well. Patient does not have any focal neurologic deficits. CT obtained as patient is have a history of C-sections for concern of possible small bowel obstruction versus ileus. CT of the abdomen pelvis does show large amount of fecal material throughout the colon with pneumatosis in the wall of the right hemicolon which is most likely secondary to large amount of fecal material. In addition she has a very distended urinary bladder. Case is discussed with surgery on-call, Dr. Mccann, we will get a repeat lab work today as initially was not repeated she just had a CBC and CMP from yesterday. In addition we will check a lactate. We will start her on Cipro and Flagyl she has a penicillin allergy. Bass catheter will be placed to decompress the bladder fully. After Bass is placed on 150 cc of urine come out. This is consistent with urinary retention. Exact cause for this is not clear. Lactate is elevated at 2.5 however not sure how much of this is dehydration versus acute ischemia. Regardless patient is admitted to medicine service with consult to surgery. Case is discussed admitting physician, Dr. Rooney. Lab Data Attestation: I reviewed the patient's lab results. Labs: Laboratory Results - last 24 hr 10/13/22 10/13/22 10/13/22 10:30 11:00 12:00 WBC RBC Hgb Hct MCV MCH MCHC RDW Std Deviation RDW Coeff of Mehnaz Plt Count MPV Immature Gran % (Auto) Neut % (Auto) Lymph % (Auto) [place] % (Auto) Eos % (Auto) Baso % (Auto) Absolute Neuts (auto) Absolute Lymphs (auto) Nucleated RBC % Sodium Potassium Chloride Carbon Dioxide Anion Gap BUN Creatinine Estim Creat Clear Calc Est GFR (MDRD) Af Amer Est GFR (MDRD) Non-Af BUN/Creatinine Ratio Glucose Lactic Acid 2.5 H* Calcium Phosphorus Magnesium Total Bilirubin AST ALT Alkaline Phosphatase Ammonia < 10.0 L Total Protein Albumin Globulin Albumin/Globulin Ratio Free T4 1.26 Free T3 pg/dL 2.2 Urine Color Yellow Urine Clarity Sl. Cloudy Urine pH 6.0 Ur Specific [place] 1.015 Urine Protein Negative Urine Glucose (UA) 50 H Urine Ketones Negative Urine Occult Blood Negative Urine Nitrite Negative Urine Bilirubin Negative Urine Urobilinogen Normal Ur Leukocyte Esterase Negative Urine RBC 0 SEEN Urine WBC 0 SEEN Ur Squamous Epith Cells 0-5 SEEN Urine Bacteria 0 SEEN Urine Mucus 0 SEEN 10/13/22 10/13/22 12:45 14:25 WBC 9.4 RBC 3.35 L Hgb 10.3 L Hct 32.5 L MCV 97.0 MCH 30.7 MCHC 31.7 L RDW Std Deviation 48.4 H RDW Coeff of Mehnaz 13.5 Plt Count 288 MPV 9.8 Immature Gran % (Auto) 0.300 Neut % (Auto) 78.3 H Lymph % (Auto) 12.0 L [place] % (Auto) 9.2 Eos % (Auto) 0.0 Baso % (Auto) 0.2 Absolute Neuts (auto) 7.4 Absolute Lymphs (auto) 1.13 Nucleated RBC % 0 Sodium 143 Potassium 3.5 Chloride 112 H Carbon Dioxide 25.0 Anion Gap 6 BUN 9 Creatinine 0.87 Estim Creat Clear Calc 43.95 Est GFR (MDRD) Af Amer 82 Est GFR (MDRD) Non-Af 68 BUN/Creatinine Ratio 10.3 Glucose 91 Lactic Acid Calcium 8.4 L Phosphorus 3.1 Magnesium 2.2 Total Bilirubin 0.30 AST 18 ALT 14 Alkaline Phosphatase 86 Ammonia Total Protein 5.7 L Albumin 2.4 L Globulin 3.3 Albumin/Globulin Ratio 0.7 L Free T4 Free T3 pg/dL Urine Color Urine Clarity Urine pH Ur Specific [place] Urine Protein Urine Glucose (UA) Urine Ketones Urine Occult Blood Urine Nitrite Urine Bilirubin Urine Urobilinogen Ur Leukocyte Esterase Urine RBC Urine WBC Ur Squamous Epith Cells Urine Bacteria Urine Mucus Radiography Diagnostic Testing: Clinical Impression(s) from Imaging Studies Abdomen/Pelvis CT 10/13/22 11:08 IMPRESSION: Large amount of fecal material is seen throughout the colon. Pneumatosis seen in the wall of the right hemicolon most likely secondary to the large amount of fecal material. Fatty infiltration of the liver. Distended urinary bladder. Scarring in the lung bases. Electronically Signed: Rafael Sherwood MD at 11:53 EDT , Discharge Plan Dx/Rx/DC Orders Clinical Impression: Paralytic ileus of small intestine and colon, Urinary retention, Abnormal CT of the abdomen Disposition Disposition: Acute Care Hospital [facility] Discharge Date/Time: 10/13/22 15:24
[2022-10-13 11:23] LABS: Free T3 2.2 pg/mL (2.18-3.98); T4 Free Direct 1.26 ng/dL (0.76-1.46)
[2022-10-13 11:29] LABS: Ammonia < 10.0 umol/L (11-32)
[2022-10-13 12:05] LABS: Bacteria 0 SEEN /hpf (None Seen); Mucous, Urine 0 SEEN /hpf (<or=2+); Red Blood Cells-Urine 0 SEEN /hpf (0-5); White Blood Cells 0 SEEN /hpf (0-5)
[2022-10-13 12:09] LABS: Color, Urine Yellow (Yellow); Glucose, Dipstick 50 mg/dl (Normal); Ketone-Dipstick Negative (Negative); Leukocyte Esterase-Dipstick Negative /ul (Negative); Nitrite-Dipstick Negative (Negative); Occult Blood-Urine Negative /ul (Negative); Protein-Dipstick Negative (Negative); Specific Gravity, Urine 1.015 (1.002-1.030); Urine Bilirubin Dipstick Negative (Negative); Urine Clarity Sl. Cloudy (Clear); Urine Urobilinogen Normal (Normal)
[2022-10-13 12:15] LABS: Squamous Epithelial Cells - UA 0-5 SEEN /hpf (5-10)
[2022-10-13] MEDS: Ciprofloxacin 400 MG/200 ML BAG 200 MG IV ×2 (12:36→20:06)
[2022-10-13 12:59] LABS: Absolute Lymphocyte Count 1.13 X10^3/uL (0.83-4.51); Absolute Neutrophil Count 7.4 X10^3/uL (2.0-7.7); Basophil# 0.02 X10^3/uL; Basophil% 0.2 % (0-1); Hematocrit 32.5 % (37-47); Hemoglobin 10.3 g/dL (12.0-15.0); Lymphocyte # 1.13 X10^3/ul (0.83-4.51); Mean Corp Hgb Conc 31.7 g/dL (32-36); Mean Corpuscular Hgb 30.7 pg (27.0-32.0); Mean Platelet Vol. 9.8 fl (6.2-12.0); Monocyte# 0.86 X10^3/uL; Monocyte% 9.2 % (0-10); NRBC Flagged by Analyzer 0 % (0-5); Neutrophil # 7.35 X10^3/uL (2.7-7.7); Neutrophil % 78.3 % (47-70); Platelet Count 288 K/mm3 (150-450); RBC Distribution Width CV 13.5 % (11.6-14.6); RBC Distribution Width SD 48.4 fl (35.1-43.9); Red Blood Count 3.35 M/mm3 (4.2-5.4); White Blood Count 9.4 K/mm3 (4.4-11.0)
[2022-10-13 13:18] LABS: ALB/GLOB Ratio 0.7 RATIO (0.9-2.4); AST(SGOT) 18 U/L (15-37); Alanine Aminotransfer ALT/SGPT 14 U/L (13-56); Albumin, Serum 2.4 g/dL (3.2-5.0); Alkaline Phosphatase 86 U/L (45-117); Anion Gap 6 (5-15); BUN 9 mg/dL (7-18); BUN/Creat Ratio 10.3 RATIO (10-20); Calcium,Total 8.4 mg/dL (8.5-10.1); Chloride 112 mmol/L (98-107); Creatinine, Serum 0.87 mg/dL (0.55-1.02); EST Glomerular Filtration Rate 68 mL/min (>60); Est Glom Filt Rate - Afr Amer 82 mL/min (>60); Estimated Creatinine Clearance 43.95 ml/min; Globulin 3.3 g/dL (2.2-4.2); Glucose 91 mg/dL (74-106); Potassium 3.5 mmol/L (3.5-5.1); Protein, Total 5.7 g/dL (6.4-8.2); Sodium Level 143 mmol/L (136-145)
[2022-10-13] MEDS: metroNIDAZOLE 500 MG/100 ML BAG 100 MG IV ×2 (13:49→21:29)
--- NOTE | 2022-10-13 13:53 | CON.PCM.SX_ITS ---
Assessment & Plan Assessment/Plan (1) Abnormal CT of the abdomen: PLAN: Plan Patient was given Cipro and Flagyl in the ER due to the finding of pneumatosis of the right colon. Patient does not really have any abdominal pain on exam for me?we will plan to treat conservatively no current plans for any surgical intervention.. We will continue the IV antibiotics currently. Patient does have a stool in her colon plan for enemas and laxatives. Bass in place due to urinary retention. Nallely Mccann M.D. Pager: [phone] [facility] [address] [place] [address], Outpatient Pavilion, [address] [place] [address] Office: [phone] HPI Consult Data Date of Consult: 10/14/22 HPI Narrative Reason for Consultation: Pneumatosis of right colon on CT HPI Narrative: CAROL ZARAGOZA, is a 72 F who presents to the ER due to abnormal KUB after seeing PCP on Sunday. Patient states she went in for a normal visit stated that she did have some occasional pain that went across her abdomen when she bent over otherwise denies any nausea or vomiting tolerating diet patient states she has had less of an appetite ever since her back surgery 15 years ago. Patient states she has bowel moods daily denies any blood. Patient never had a colonoscopy as she has declined over time her PCP asked per patient. Patient has CT back in 2021 which showed pneumatosis of the right colon. Patient did not require any surgery at that time. Patient CT abdomen pelvis which showed right colon pneumatosis of this as well as enlarged bladder. Patient's had a Bass placed for 900+ cc?UA appeared clean no concern for infection. Patient denied urge to urinate. Currently patient denies any abdominal pain. Patient normal white blood cell count in the ER with a slight shift at 78% neutrophils, patient's creatinine was normal 0.87, lactic acid from 1030 blood draw but not resulted until 2:30 PM-- was 2.5 patient is currently getting a IV fluid bolus. [facility] Medical History Allergic rhinitis Ambulates with cane Anxiety Arthritis Asthma Back pain Carpal tunnel syndrome on both sides Chronic cough Chronic lower back pain Closed head injury COVID-19 Debility Depression Depression Dysphagia Edema Former smoker Gastric reflux Gastroparesis Generalized weakness GERD High cholesterol History of stress test HLD (hyperlipidemia) Hypertension Hypoxia Insomnia Irritable bowel syndrome without diarrhea Ischemic bowel disease Low back pain Migraine Migraine headache Movement disorder Pain from implanted hardware Palpitations Palpitations Post-menopausal Scoliosis Scoliosis of lumbar spine Segmental and somatic dysfunction of lumbar region Segmental and somatic dysfunction of pelvic region Segmental dysfunction of thoracic region Shortness of breath on exertion SOB (shortness of breath) Stenosis, cervical spine Uses wheelchair Vitamin D deficiency Walker as ambulation aid Wears dentures Wears glasses Wears hearing aid Home Medications buspirone 7.5 mg tablet 7.5 mg PO BID Check with primary doctor 02/17/20 [History Last Taken 04/26/22] clonazepam 1 mg tablet 1 mg PO TID anxiety 02/17/20 [History Last Taken 04/26/22] gabapentin 400 mg capsule 400 mg PO Q6H Check with primary doctor 04/20/22 [History Last Taken 04/26/22] acetaminophen 325 mg tablet 650 mg (2 x 325 mg) PO Q6H PRN PRN Pain 1-10 Or Fever >100.7 #0 tabs 08/02/22 [Rx Last Taken Unknown] naproxen 500 mg tablet 500 mg PO Q12H 10/13/22 [History Last Taken Unknown] Allergy/AdvReac Type Severity Reaction Status Date / Time hydrocodone [From Vicodin] Allergy NERVOUS, Verified 10/13/22 10:07 JITTERY Penicillins Allergy Rash Verified 10/13/22 10:07 Family History Other CVA (cerebral vascular accident) Cancer Hypertension Surgical History History of 2 sections History of cardiac catheterization History of lumbar laminectomy Hx of dilation and curettage Hx of surgical procedure Social History Smoking Status: Former smoker alcohol intake: never substance use type: does not use what type of physical activity do you participate in: none ROS Constitutional Constitutional: Denies fever(s) Eyes Eyes: Denies loss of central vision ENT HEENT: Denies dysphagia Cardiovascular Cardiovascular: Denies chest pain Respiratory/Chest Respiratory/Chest: Denies cough Gastrointestinal Gastrointestinal: Reports abdominal pain; Denies constipation, diarrhea, nausea, rectal bleeding or vomiting Genitourinary Genitourinary: Denies dysuria or urinary urgency Musculoskeletal Musculoskeletal: Reports back pain Integumentary Integumentary: Denies jaundice Neurologic Neurologic: Denies dizziness Psychiatric Psychiatric: Reports anxiety Endocrine Endocrinology: Denies palpitations Hematologic/Lymphatic Hematologic/Lymphatic: Denies easy bleeding Physical Exam Const alert, oriented x3 and no apparent distress HEENT normocephalic and head/scalp atraumatic Eyes conjunctivae normal Neck supple Resp normal respiratory effort Cardio regular rate GI soft to palpation and non-tender; Negative for non-distended Palpation: Negative for guarding Bladder / Kidney Exam: catheter in place Extremity no clubbing, cyanosis or edema Skin no rashes or lesions noted and no jaundice Neuro CN's II-XII intact bilaterally Psych mental status grossly normal Mood & Affect: flat affect Lab / Micro Data 10/14/22 07:13 10/13/22 12:45 Labs: Laboratory Results - last 24 hr 10/13/22 10:30: Free T4 1.26, Free T3 pg/dL 2.2 10/13/22 11:00: Ammonia < 10.0 L 10/13/22 12:00: Urine Color Yellow, Urine Clarity Sl. Cloudy, Urine pH 6.0, Ur Specific [place] 1.015, Urine Protein Negative, Urine Glucose (UA) 50 H, Urine Ketones Negative, Urine Occult Blood Negative, Urine Nitrite Negative, Urine Bilirubin Negative, Urine Urobilinogen Normal, Ur Leukocyte Esterase Negative, Urine RBC 0 SEEN, Urine WBC 0 SEEN, Ur Squamous Epith Cells 0-5 SEEN, Urine Bacteria 0 SEEN, Urine Mucus 0 SEEN 10/13/22 12:45: WBC 9.4, RBC 3.35 L, Hgb 10.3 L, Hct 32.5 L, MCV 97.0, MCH 30.7, MCHC 31.7 L, RDW Std Deviation 48.4 H, RDW Coeff of Mehnaz 13.5, Plt Count 288, MPV 9.8, Immature Gran % (Auto) 0.300, Neut % (Auto) 78.3 H, Lymph % (Auto) 12.0 L, [place] % (Auto) 9.2, Eos % (Auto) 0.0, Baso % (Auto) 0.2, Absolute Neuts (auto) 7.4, Absolute Lymphs (auto) 1.13, Nucleated RBC % 0, Sodium 143, Potassium 3.5, Chloride 112 H, Carbon Dioxide 25.0, Anion Gap 6, BUN 9, Creatinine 0.87, Estim Creat Clear Calc 43.95, Est GFR (MDRD) Af Amer 82, Est GFR (MDRD) Non-Af 68, BUN/Creatinine Ratio 10.3, Glucose 91, Calcium 8.4 L, Total Bilirubin 0.30, AST 18, ALT 14, Alkaline Phosphatase 86, Total Protein 5.7 L, Albumin 2.4 L, Globulin 3.3, Albumin/Globulin Ratio 0.7 L Radiology Impression Abdomen/Pelvis CT 10/13/22 11:08 IMPRESSION: Large amount of fecal material is seen throughout the colon. Pneumatosis seen in the wall of the right hemicolon most likely secondary to the large amount of fecal material. Fatty infiltration of the liver. Distended urinary bladder. Scarring in the lung bases. Electronically Signed: Rafael Sherwood MD at 11:53 EDT , Charges/Coding Visit Charges Inpatient E&M: 97335 Init Hosp L3
[2022-10-13 14:30] LABS: Lactic Acid 2.5 mmol/L (0.4-1.9)
--- NOTE | 2022-10-13 14:40 | PCM.HP.STD ---
HPI - General General Date of Admission: 10/13/22 Date of Service: 10/13/22 Chief Complaint: Constipation for long time but acutely for last 2 days HPI Narrative CAROL ZARAGOZA, is a 72 F was sent to ED by PCP Dr. Luis who did outpatient KUB which showed colonic ileus. Patient having irregular bowel movement mainly constipation for last 1 week but did not move bowel for 2 days. She is bloated and has not passed gas for last 2 days. To me, she denies abdominal pain or discomfort but from ER physician note, she had stomach cramps and abdominal discomfort for past 1 week. Prior to that she was admitted in July 2022 for pneumonia/influenza B and she had follow-up chest x-ray by Dr. Luis today which shows improvement in pneumonia. She also had EGD during that hospital course for dysphagia Patient also has difficulty in his starting the urine and she states he pees a lot. She also has sensation of incomplete emptying of bladder and has to go again for PE. No fever. Patient hemodynamically stable in ED with no hypoxia or tachypnea. Labs and CT scan individually reviewed and discussed in assessment plan. Patient is further admitted. [facility] Medical History Allergic rhinitis Ambulates with cane Anxiety Arthritis Asthma Back pain Carpal tunnel syndrome on both sides Chronic cough Chronic lower back pain Closed head injury COVID-19 Debility Depression Depression Dysphagia Edema Former smoker Gastric reflux Gastroparesis Generalized weakness GERD High cholesterol History of stress test HLD (hyperlipidemia) Hypertension Hypoxia Insomnia Irritable bowel syndrome without diarrhea Ischemic bowel disease Low back pain Migraine Migraine headache Movement disorder Pain from implanted hardware Palpitations Palpitations Post-menopausal Scoliosis Scoliosis of lumbar spine Segmental and somatic dysfunction of lumbar region Segmental and somatic dysfunction of pelvic region Segmental dysfunction of thoracic region Shortness of breath on exertion SOB (shortness of breath) Stenosis, cervical spine Uses wheelchair Vitamin D deficiency Walker as ambulation aid Wears dentures Wears glasses Wears hearing aid Home Medications buspirone 7.5 mg tablet 7.5 mg PO BID Check with primary doctor 02/17/20 [History Last Taken 04/26/22] clonazepam 1 mg tablet 1 mg PO TID anxiety 02/17/20 [History Last Taken 04/26/22] gabapentin 400 mg capsule 400 mg PO Q6H Check with primary doctor 04/20/22 [History Last Taken 04/26/22] acetaminophen 325 mg tablet 650 mg (2 x 325 mg) PO Q6H PRN PRN Pain 1-10 Or Fever >100.7 #0 tabs 08/02/22 [Rx Last Taken Unknown] naproxen 500 mg tablet 500 mg PO Q12H 10/13/22 [History Last Taken Unknown] Allergy/AdvReac Type Severity Reaction Status Date / Time hydrocodone [From Vicodin] Allergy NERVOUS, Verified 10/13/22 10:07 JITTERY Penicillins Allergy Rash Verified 10/13/22 10:07 Family History Other CVA (cerebral vascular accident) Cancer Hypertension Surgical History History of 2 sections History of cardiac catheterization History of lumbar laminectomy Hx of dilation and curettage Hx of surgical procedure Social History Smoking Status: Former smoker alcohol intake: never substance use type: does not use what type of physical activity do you participate in: none ROS ROS Narrative 14 system ROS incomplete and difficult to obtain as patient has anxiety on: Is on buspirone and her history is vague. Constitutional: Reports fatigue and weakness. No fever. HEENT: Reports systems reviewed and no addt'l complaints, except as documented Respiratory/Chest: No acute shortness of breath or respiratory distress or wheezing. CVS: No chest pain pressure or tightness Gastrointestinal: Denies coffee ground emesis, hematemesis or vomiting. Rest as mentioned in HPI Genitourinary: No dysuria/burning micturition. Rest as described in HPI Musculoskeletal: Denies acute joint pain or limited range of motion. No acute injury Neurologic: Denies seizure-like symptoms. Psychiatric: Anxiety and depression on antipsychotic medication. skin: No ulcer. No rash Endocrinology: Reports systems reviewed and no addt'l complaints, except as documented Hematologic/Lymphatic: Reports systems reviewed and no addt'l complaints, except as documented Rest 14 ROS are negative except as mentioned in HPI Vital Signs Vital Signs Vital Signs: 10/13/22 10:04 10/13/22 10:25 10/13/22 10:33 Temperature 97.3 F L 98.1 F Temperature Source Temporal Temporal Pulse Rate 98 78 Respiratory Rate 12 14 Respiratory Pattern Normal Blood Pressure 126/83 H 132/72 H Blood Pressure Mean 97 92 Pulse Ox 92 Oxygen Delivery Method Room Air Room Air 10/13/22 12:07 10/13/22 13:00 10/13/22 13:51 Temperature 98.2 F 97.3 F L 97.3 F L Temperature Source Temporal Temporal Temporal Pulse Rate 65 75 74 Respiratory Rate 16 16 16 Respiratory Pattern Blood Pressure 118/69 124/66 H 125/69 H Blood Pressure Mean 85 85 87 Pulse Ox 96 99 95 Oxygen Delivery Method Room Air Room Air Room Air Weight Weight: 105 lb Body Mass Index (BMI) 18.6 Physical Exam Narrative General: Alert, Oriented x3, Cooperative HEENT: Atraumatic, PERRLA, EOMI, Normocephalic Oral: Oral mucosa dry. No Gingival or Mucosal Lesions/ Ulcerations Neck: Supple, No JVD, Negative Carotid Bruits Lungs: Air entry diminished in bilateral lung bases. No crepitation/rhonchi Cardiovascular: Regular rate, Regular Rhythm, Normal S1, Normal S2, systolic murmur right second ICS Abdomen: Bowel Sounds very sluggish. Soft, nontender and nondistended. : No renal angle tenderness. No suprapubic tenderness. Extremities: No edema, Capillary Refill Less than 3 Seconds Skin: No rashes, No breakdown Musculoskeletal: No Tenderness to Palpation of Joints or Extremities, muscle strength 4+/5 at knee and hip joints. Neurological: Cranial nerves II-XII grossly intact, DTR 2+/4 and Symmetrical, Neuro grossly intact Psych/Mental Status: Flat affect. Sometimes does not remember her history/tangential in history taking Results Lab / Micro Data 10/13/22 12:45 10/13/22 12:45 Labs: Laboratory Results - last 24 hr 10/13/22 10:30: Lactic Acid 2.5 H*, Free T4 1.26, Free T3 pg/dL 2.2 10/13/22 11:00: Ammonia < 10.0 L 10/13/22 12:00: Urine Color Yellow, Urine Clarity Sl. Cloudy, Urine pH 6.0, Ur Specific [place] 1.015, Urine Protein Negative, Urine Glucose (UA) 50 H, Urine Ketones Negative, Urine Occult Blood Negative, Urine Nitrite Negative, Urine Bilirubin Negative, Urine Urobilinogen Normal, Ur Leukocyte Esterase Negative, Urine RBC 0 SEEN, Urine WBC 0 SEEN, Ur Squamous Epith Cells 0-5 SEEN, Urine Bacteria 0 SEEN, Urine Mucus 0 SEEN 10/13/22 12:45: WBC 9.4, RBC 3.35 L, Hgb 10.3 L, Hct 32.5 L, MCV 97.0, MCH 30.7, MCHC 31.7 L, RDW Std Deviation 48.4 H, RDW Coeff of Mehnaz 13.5, Plt Count 288, MPV 9.8, Immature Gran % (Auto) 0.300, Neut % (Auto) 78.3 H, Lymph % (Auto) 12.0 L, [place] % (Auto) 9.2, Eos % (Auto) 0.0, Baso % (Auto) 0.2, Absolute Neuts (auto) 7.4, Absolute Lymphs (auto) 1.13, Nucleated RBC % 0, Sodium 143, Potassium 3.5, Chloride 112 H, Carbon Dioxide 25.0, Anion Gap 6, BUN 9, Creatinine 0.87, Estim Creat Clear Calc 43.95, Est GFR (MDRD) Af Amer 82, Est GFR (MDRD) Non-Af 68, BUN/Creatinine Ratio 10.3, Glucose 91, Calcium 8.4 L, Total Bilirubin 0.30, AST 18, ALT 14, Alkaline Phosphatase 86, Total Protein 5.7 L, Albumin 2.4 L, Globulin 3.3, Albumin/Globulin Ratio 0.7 L Radiology Impression Abdomen/Pelvis CT 10/13/22 11:08 IMPRESSION: Large amount of fecal material is seen throughout the colon. Pneumatosis seen in the wall of the right hemicolon most likely secondary to the large amount of fecal material. Fatty infiltration of the liver. Distended urinary bladder. Scarring in the lung bases. Electronically Signed: Rafael Sherwood MD at 11:53 EDT , Assessment & Plan Assessment/Plan (1) Paralytic ileus of small intestine and colon: PLAN: Plan This 70-year-old female being admitted after abnormal KUB finding along with clinical symptoms of constipation 1. Colonic ileus: CT abdomen individually reviewed and shows large amount of fecal material throughout the colon. Pneumatosis in right hemicolon wall. Distended urinary bladder patient had Bass catheter in ED.Patient is being admitted on [facility] floor. Started on IV fluid Ringer lactate. Patient started on oral and bowel regimen for constipation including soapsuds enema twice daily, senna S and Dulcolax oral and suppository. See the abdomen reports normal stomach and small intestine. No need for NG tube 2. Recent history of pneumonia: Patient was admitted in July 2022 for pneumonia. Repeat chest x-ray shows improvement in bilateral basilar airspace disease 3. History of oropharyngeal dysphagia and esophageal dysphagia: During the admission patient had MBS which showed dysphagia as mentioned above. Patient required EGD shows grade a esophagitis dilatation performed in esophagus. Unclear whether she has gastroparesis. 4. 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 Anxiety and depression: Patient on clonazepam and buspirone at home Living will/advanced directive/end of life care: Patient does have living will or advanced directive. After discussion of benefits/risks procedures involved with full code, DNR CC arrest and DNR CC, the patient and her opted for full code. Patient does want artificial life support including intubation, tube feed, ventilator and/chest compression, central venous catheter, vasopressor and DC shock if needed but she does not want to be in vegetative condition or dependent on ventilator if doctors think that she is terminal with no meaningful recovery Total time spent in bekg-er-zada encounter in discussion of advanced directive 17 minutes. Clinical Impression(s) from Imaging Studies Abdomen/Pelvis CT 10/13/22 11:08 IMPRESSION: Large amount of fecal material is seen throughout the colon. Pneumatosis seen in the wall of the right hemicolon most likely secondary to the large amount of fecal material. Fatty infiltration of the liver. Distended urinary bladder. Scarring in the lung bases. Laboratory Results 10/13/22 10:30: Lactic Acid 2.5 H*, Free T4 1.26, Free T3 pg/dL 2.2 10/13/22 11:00: Ammonia < 10.0 L 10/13/22 12:00: Urine Color Yellow, Urine Clarity Sl. Cloudy, Urine pH 6.0, Ur Specific [place] 1.015, Urine Protein Negative, Urine Glucose (UA) 50 H, Urine Ketones Negative, Urine Occult Blood Negative, Urine Nitrite Negative, Urine Bilirubin Negative, Urine Urobilinogen Normal, Ur Leukocyte Esterase Negative, Urine RBC 0 SEEN, Urine WBC 0 SEEN, Ur Squamous Epith Cells 0-5 SEEN, Urine Bacteria 0 SEEN, Urine Mucus 0 SEEN 10/13/22 12:45: WBC 9.4, RBC 3.35 L, Hgb 10.3 L, Hct 32.5 L, MCV 97.0, MCH 30.7, MCHC 31.7 L, RDW Std Deviation 48.4 H, RDW Coeff of Mehnaz 13.5, Plt Count 288, MPV 9.8, Immature Gran % (Auto) 0.300, Neut % (Auto) 78.3 H, Lymph % (Auto) 12.0 L, [place] % (Auto) 9.2, Eos % (Auto) 0.0, Baso % (Auto) 0.2, Absolute Neuts (auto) 7.4, Absolute Lymphs (auto) 1.13, Nucleated RBC % 0, Sodium 143, Potassium 3.5, Chloride 112 H, Carbon Dioxide 25.0, Anion Gap 6, BUN 9, Creatinine 0.87, Estim Creat Clear Calc 43.95, Est GFR (MDRD) Af Amer 82, Est GFR (MDRD) Non-Af 68, BUN/Creatinine Ratio 10.3, Glucose 91, Calcium 8.4 L, Total Bilirubin 0.30, AST 18, ALT 14, Alkaline Phosphatase 86, Total Protein 5.7 L, Albumin 2.4 L, Globulin 3.3, Albumin/Globulin Ratio 0.7 L Charges/Coding Visit Charges Inpatient E&M: 14024 Init Hosp L3 Procedures Hospitalists Procedures: 12916 Advncd Care Plan 30 Min
--- NOTE | 2022-10-13 15:22 | ED.RN ---
verbal order for increased infusion rate to 999mo/
--- NOTE | 2022-10-13 15:23 | ED.RN ---
verbal order for 0.9% normal saline infusion rate to be increased to 999 ml/hr for remaining volume, by Dr. Slade
[2022-10-13 15:36] LABS: Magnesium 2.2 mg/dL (1.6-2.6); Phosphorus 3.1 mg/dL (2.5-4.9)
[2022-10-13] MEDS: Lactated Ringers 1,000 ML 999 ML IV (15:49)
[2022-10-13] MEDS: Bisacodyl 5 MG Tablet 10 MG PO (15:52)
[2022-10-13] MEDS: Senna/Docusate Sodium 1 Tablet 2 TABLET PO ×2 (15:52→20:09)
[2022-10-13] MEDS: Lactated Ringers 1,000 ML 75 ML IV (17:10)
[2022-10-13 18:08] LABS: Reflex Lactate? Y
[2022-10-13 18:43] LABS: Lactic Acid 0.8 mmol/L (0.4-1.9)
[2022-10-14 04:06] VITALS: BP 105/62; PULSE 79; RESP 16; TEMP 37; O2SAT 96
[2022-10-14 04:08] VITALS: BMI 19.4
[2022-10-14] MEDS: Lactated Ringers 1,000 ML 75 ML IV (06:56)
[2022-10-14] MEDS: metroNIDAZOLE 500 MG/100 ML BAG 100 MG IV (06:56)
[2022-10-14 08:01] LABS: Absolute Lymphocyte Count 1.59 X10^3/uL (0.83-4.51); Absolute Neutrophil Count 3.6 X10^3/uL (2.0-7.7); Basophil# 0.03 X10^3/uL; Basophil% 0.5 % (0-1); Eosinophil# 0.05 X10^3/uL; Eosinophils% 0.9 % (0-5); Hematocrit 30.6 % (37-47); Hemoglobin 10.1 g/dL (12.0-15.0); Lymphocyte # 1.59 X10^3/ul (0.83-4.51); Lymphocyte % 27.8 % (19-41); Mean Corpuscular Hgb 32.1 pg (27.0-32.0); Mean Corpuscular Volume 97.1 fL (81-99); Monocyte# 0.48 X10^3/uL; Monocyte% 8.4 % (0-10); NRBC Flagged by Analyzer 0 % (0-5); Neutrophil # 3.55 X10^3/uL (2.7-7.7); Neutrophil % 62.2 % (47-70); Platelet Count 247 K/mm3 (150-450); RBC Distribution Width CV 13.7 % (11.6-14.6); RBC Distribution Width SD 49.1 fl (35.1-43.9); Red Blood Count 3.15 M/mm3 (4.2-5.4); White Blood Count 5.7 K/mm3 (4.4-11.0)
[2022-10-14 08:16] VITALS: O2SAT 95
--- NOTE | 2022-10-14 08:20 | PN.SURG_ITS ---
Subjective Subjective Per patient and nursing she had a large bowel movement with the enemas and laxatives. Patient denies abdominal pain or nausea or vomiting. Patient try to go home. Objective Data Objective Data Vital Signs: Vital Signs Temp Pulse Resp BP Pulse Ox O2 Del Method 98.6 F 79 16 105/62 95 Room Air 10/14/22 04:06 10/14/22 04:06 10/14/22 04:06 10/14/22 04:06 10/14/22 08:16 10/14/22 08:16 Oxygen Delivery Method Room Air Weight: 109 lb 9.116 oz Body Mass Index (BMI) 19.4 Intake & Output: Intake and Output for Last 24 Hours 10/12/22 10/13/22 10/14/22 23:59 23:59 23:59 Intake Total 2650 / 2650 1000 / 1000 Output Total 1400 / 2200 1200 / 1200 Balance 1250 / 450 -200 / -200 Lab / Micro Data 10/14/22 07:13 10/13/22 12:45 Labs: Laboratory Results - last 24 hr 10/13/22 10:30: Lactic Acid 2.5 H*, Free T4 1.26, Free T3 pg/dL 2.2 10/13/22 11:00: Ammonia < 10.0 L 10/13/22 12:00: Urine Color Yellow, Urine Clarity Sl. Cloudy, Urine pH 6.0, Ur Specific [place] 1.015, Urine Protein Negative, Urine Glucose (UA) 50 H, Urine Ketones Negative, Urine Occult Blood Negative, Urine Nitrite Negative, Urine Bilirubin Negative, Urine Urobilinogen Normal, Ur Leukocyte Esterase Negative, Urine RBC 0 SEEN, Urine WBC 0 SEEN, Ur Squamous Epith Cells 0-5 SEEN, Urine Bacteria 0 SEEN, Urine Mucus 0 SEEN 10/13/22 12:45: WBC 9.4, RBC 3.35 L, Hgb 10.3 L, Hct 32.5 L, MCV 97.0, MCH 30.7, MCHC 31.7 L, RDW Std Deviation 48.4 H, RDW Coeff of Mehnaz 13.5, Plt Count 288, MPV 9.8, Immature Gran % (Auto) 0.300, Neut % (Auto) 78.3 H, Lymph % (Auto) 12.0 L, [place] % (Auto) 9.2, Eos % (Auto) 0.0, Baso % (Auto) 0.2, Absolute Neuts (auto) 7.4, Absolute Lymphs (auto) 1.13, Nucleated RBC % 0, Sodium 143, Potassium 3.5, Chloride 112 H, Carbon Dioxide 25.0, Anion Gap 6, BUN 9, Creatinine 0.87, Estim Creat Clear Calc 43.95, Est GFR (MDRD) Af Amer 82, Est GFR (MDRD) Non-Af 68, BUN/Creatinine Ratio 10.3, Glucose 91, Calcium 8.4 L, Total Bilirubin 0.30, AST 18, ALT 14, Alkaline Phosphatase 86, Total Protein 5.7 L, Albumin 2.4 L, Globulin 3.3, Albumin/Globulin Ratio 0.7 L 10/13/22 14:25: Phosphorus 3.1, Magnesium 2.2 10/13/22 18:05: Lactic Acid 0.8 10/14/22 07:13: WBC 5.7, RBC 3.15 L, Hgb 10.1 L, Hct 30.6 L, MCV 97.1, MCH 32.1 H, MCHC 33.0, RDW Std Deviation 49.1 H, RDW Coeff of Mehnaz 13.7, Plt Count 247, MPV 10.0, Immature Gran % (Auto) 0.200, Neut % (Auto) 62.2, Lymph % (Auto) 27.8, [place] % (Auto) 8.4, Eos % (Auto) 0.9, Baso % (Auto) 0.5, Absolute Neuts (auto) 3.6, Absolute Lymphs (auto) 1.59, Nucleated RBC % 0 Radiography Diagnostic Testing: Radiology Impression Abdomen/Pelvis CT 10/13/22 11:08 IMPRESSION: Large amount of fecal material is seen throughout the colon. Pneumatosis seen in the wall of the right hemicolon most likely secondary to the large amount of fecal material. Fatty infiltration of the liver. Distended urinary bladder. Scarring in the lung bases. Electronically Signed: Rafael Sherwood MD at 11:53 EDT , Physical Exam Const alert, oriented x3 and no apparent distress Resp normal respiratory effort Cardio regular rate GI soft to palpation and non-tender; Negative for non-distended Palpation: Negative for guarding Bladder / Kidney Exam: catheter in place Assessment & Plan Assessment/Plan (1) Abnormal CT of the abdomen: PLAN: Plan Okay for patient to have diet. Will DC with Cipro and Flagyl times total of [address] due to urinary retention-management per hospitalist. Nallely Mccann M.D. Pager: [phone] [facility] [address] [place] [address], [facility], [address] [place] [address] Office: [phone] Charges/Coding Visit Charges Inpatient E&M: 25605 Subs Hosp L2
--- NOTE | 2022-10-14 08:24 | DCINST_ITS ---
Discharge Instructions Diet Discharge Diet: Soft diet (Soft diet for 3 days and then regular diet.) Activity Discharge Activity: Return to Normal Activity and May Not Drive Weight Bearing Status: Weight bearing as tolerated Dressing / Incision Call your doctor if you observe: Fever of 101 or Higher, Coldness, Increased Pain, Numbness or Tingling, Change in Color, Inability to urinate, Inability to have a bowel movement, Using more than 1 pad per hour, Shortness of breath, Dizziness, Fainting spells, Swelling in the ankles, Chest pain, Prolonged hiccupping, Increased palpitations (irregular heartbeat) and Calf discomfort Follow Up Care When: IN 2 WEEKS Test Results: Test results from this visit will be discussed in further detail at your follow- up appointment, if applicable. Discharge Plan Admission Admit Date/Time: 10/13/22 14:29 Attending Provider: Zia Posey Primary Care Provider: Harish Luis Chi Consulting Providers: Nallely Mccann Discharge Orders/Prescriptions Prescriptions: New sennosides-docusate sodium [Stool Softener-Stimulant Laxat] 8.6-50 mg Tablet 2 tab PO BID 30 Days Qty: 0 0RF Rx Instructions: Take as scheduled for 3 days and then as needed for constipation Available [id number]. bisacodyl 10 mg Suppository 10 mg UT DAILY PRN (Reason: Constipation) 30 Days Qty: 0 0RF Rx Instructions: [id number]-[id number]. polyethylene glycol 3350 [Miralax] 17 gram/dose powder 17 g PO DAILY Qty: 238 0RF Rx Instructions: available over the counter ciprofloxacin HCl 500 mg tablet 500 mg PO BID 5 Days Qty: 10 0RF metronidazole 500 mg tablet 500 mg PO Q8H 5 Days Qty: 15 0RF Continued clonazepam 1 MG tablet 1 mg PO TID buspirone 7.5 MG tablet 7.5 mg PO BID gabapentin 400 mg capsule 400 mg PO Q6H acetaminophen 325 mg Tablet 650 mg PO Q6H PRN PRN (Reason: Pain 1-10 Or Fever >100.7) Qty: 0 0RF Changed naproxen 500 mg tablet 500 mg PO Q12H PRN (Reason: arthritis pain) 30 Days Qty: 0 0RF Patient Comments: TAKE 1 TABLET BY MOUTH EVERY 12 HOURS Referrals / Follow Up: Ghazal Ledesma MD [Med Staff - Active Staff] - Within 2 Weeks (for acute on chronic retention of urine) Harish Luis Chi, MD [Primary Care Provider] - Nallely Mccann MD [Med Staff - Active Staff] - Within 2 Weeks (for severe constipation ) Disposition Disposition (needs filled in before D/C Order can be placed): Home, Self Care
--- NOTE | 2022-10-14 08:34 | DS.PCM_ITS ---
Providers Date of Admission: 10/13/22 Date of Discharge: 10/14/22 Primary Care Physician: Dr. Harish Luis MD Consultations 10/13/22 14:55 Consult: General Surgery Routine Consulting Provider: Nallely Mccann Reason for Consult: Colonic ileus, feces EMERGENT Consult: No MD Notified: Yes Date Notified: 10/13/22 Time Notified: 14:55 Method of Notification: ED Physician Initiated Reason For Visit: ABDOMIAL ILEUS Diagnosis Discharge Diagnosis (1) Abnormal CT of the abdomen: Status: Acute Code(s): R93.5 - Abnormal findings on diagnostic imaging of other abdominal regions, including retroperitoneum Plan This 70-year-old female being admitted after abnormal KUB finding along with clinical symptoms of constipation 1. Colonic ileus: CT abdomen individually reviewed and shows large amount of fecal material throughout the colon. Pneumatosis in right hemicolon wall. Distended urinary bladder patient had Bass catheter in ED.Patient is being admitted on [facility] floor. Started on IV fluid Ringer lactate. Patient started on oral and bowel regimen for constipation including soapsuds enema twice daily, senna S and Dulcolax oral and suppository. See the abdomen reports normal stomach and small intestine. No need for NG tube 10/14: Patient had big bowel movement after soapsuds enema. Patient was seen and evaluated by surgeon and regis for discharge. Advised soft diet for next 3 days. Follow-up in surgery clinic in 2 to 3 weeks. Acute on chronic renal lesion, exact etiology unclear possible neurogenic bladder: Patient also acute on chronic urinary retention and had 950 mill for which she had a Bass catheter. Bass catheter was removed in the morning and patient had a spontaneous voiding of 250 mill of urine without residual. Melissa mcclain advised to follow-up with and I also talked to her on the third floor. She might have neurogenic bladder. 2. Recent history of pneumonia: Patient was admitted in July 2022 for pneumonia. Repeat chest x-ray shows improvement in bilateral basilar airspace disease 3. History of oropharyngeal dysphagia and esophageal dysphagia: During the admission patient had MBS which showed dysphagia as mentioned above. Patient required EGD shows grade a esophagitis dilatation performed in esophagus. Unclear whether she has gastroparesis. 4. 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 She states she has problem in balance and disequilibrium. Vitamin B12 and vitamin D 25-hydroxy ordered. 5. Anxiety and depression: Patient on clonazepam and buspirone at home TSH low 0.04 but free T4 and free T3 normal suggestive of subclinical hypothyroidism. Check thyroid function test after 3 months Living will/advanced directive/end of life care: Patient does have living will or advanced directive. After discussion of benefits/risks procedures involved with full code, DNR CC arrest and DNR CC, the patient and her opted for full code. Patient does want artificial life support including intubation, tube feed, ventilator and/chest compression, central venous catheter, vasopressor and DC shock if needed but she does not want to be in vegetative condition or dependent on ventilator if doctors think that she is terminal with no meaningful recovery Discharge medication reconciliation done. Discharge follow-up instructions completed. Discharge process discussed with the patient and all questions were answered to patient's satisfaction. Patient was admitted as inpatient status because of colonic ileus with large fecal load from right to left colon. Patient did not fecal management active. Patient had good bowel movement and clinically improved therefore early discharge. Total time spent, exact 35 minutes on discharge meds reconciliation, examination, coordination of care with nurses and ancillary staff, review of imaging and blood test and discussion with the patient on follow-up instructions. Clinical Impression(s) from Imaging Studies Abdomen/Pelvis CT 10/13/22 11:08 IMPRESSION: Large amount of fecal material is seen throughout the colon. Pneumatosis seen in the wall of the right hemicolon most likely secondary to the large amount of fecal material. Fatty infiltration of the liver. Distended urinary bladder. Scarring in the lung bases. Laboratory Results 10/13/22 10:30: Lactic Acid 2.5 H*, Free T4 1.26, Free T3 pg/dL 2.2 10/13/22 11:00: Ammonia < 10.0 L 10/13/22 12:00: Urine Color Yellow, Urine Clarity Sl. Cloudy, Urine pH 6.0, Ur Specific [place] 1.015, Urine Protein Negative, Urine Glucose (UA) 50 H, Urine Ketones Negative, Urine Occult Blood Negative, Urine Nitrite Negative, Urine Bilirubin Negative, Urine Urobilinogen Normal, Ur Leukocyte Esterase Negative, Urine RBC 0 SEEN, Urine WBC 0 SEEN, Ur Squamous Epith Cells 0-5 SEEN, Urine Bacteria 0 SEEN, Urine Mucus 0 SEEN 10/13/22 12:45: WBC 9.4, RBC 3.35 L, Hgb 10.3 L, Hct 32.5 L, MCV 97.0, MCH 30.7, MCHC 31.7 L, RDW Std Deviation 48.4 H, RDW Coeff of Mehnaz 13.5, Plt Count 288, MPV 9.8, Immature Gran % (Auto) 0.300, Neut % (Auto) 78.3 H, Lymph % (Auto) 12.0 L, Republic % (Auto) 9.2, Eos % (Auto) 0.0, Baso % (Auto) 0.2, Absolute Neuts (auto) 7.4, Absolute Lymphs (auto) 1.13, Nucleated RBC % 0, Sodium 143, Potassium 3.5, Chloride 112 H, Carbon Dioxide 25.0, Anion Gap 6, BUN 9, Creatinine 0.87, Estim Creat Clear Calc 43.95, Est GFR (MDRD) Af Amer 82, Est GFR (MDRD) Non-Af 68, BUN/Creatinine Ratio 10.3, Glucose 91, Calcium 8.4 L, Total Bilirubin 0.30, AST 18, ALT 14, Alkaline Phosphatase 86, Total Protein 5.7 L, Albumin 2.4 L, Globulin 3.3, Albumin/Globulin Ratio 0.7 L Medications at Discharge Home Medications buspirone 7.5 mg tablet 7.5 mg PO BID Check with primary doctor 02/17/20 clonazepam 1 mg tablet 1 mg PO TID anxiety 02/17/20 gabapentin 400 mg capsule 400 mg PO Q6H Check with primary doctor 04/20/22 acetaminophen 325 mg tablet 650 mg (2 x 325 mg) PO Q6H PRN PRN Pain 1-10 Or Fever >100.7 #0 tabs 08/02/22 bisacodyl 10 mg rectal suppository 10 mg CA DAILY PRN Constipation 30 days #0 ea 10/14/22 ciprofloxacin HCl 500 mg tablet 500 mg PO BID 5 days #10 tabs 10/14/22 metronidazole 500 mg tablet 500 mg PO Q8H 5 days #15 tabs 10/14/22 naproxen 500 mg tablet 500 mg PO Q12H PRN arthritis pain 30 days #0 tabs 10/14/22 polyethylene glycol 3350 17 gram/dose oral powder (Miralax) 17 g PO DAILY #238 grams 07/29/23 sennosides 8.6 mg-docusate sodium 50 mg tablet (Stool Softener-Stimulant Laxative) 2 tab PO BID 30 days #0 tabs 10/14/22 Physical Exam Narrative Patient on clonazepam and buspirone for long time. I feel like even though she has daily bowel movement. Today it is incomplete evacuation of bowel. She never had colonoscopy advised to follow-up in surgery clinic and urology clinic with Dr. Ledesma General: Alert, Oriented x3, Cooperative HEENT: Atraumatic, PERRLA, EOMI, Normocephalic Oral: Oral mucosa dry. No Gingival or Mucosal Lesions/ Ulcerations Neck: Supple, No JVD, Negative Carotid Bruits Lungs: Air entry diminished in bilateral lung bases. No crepitation/rhonchi Cardiovascular: Regular rate, Regular Rhythm, Normal S1, Normal S2, systolic murmur right second ICS Abdomen: Bowel Sounds good. Soft, nontender and nondistended. Patient had large bowel movement. : No renal angle tenderness. No suprapubic tenderness. Extremities: No edema, Capillary Refill Less than 3 Seconds Skin: No rashes, No breakdown Musculoskeletal: No Tenderness to Palpation of Joints or Extremities, muscle strength 4+/5 at knee and hip joints. Neurological: Cranial nerves II-XII grossly intact, DTR 2+/4 and Symmetrical, Neuro grossly intact Psych/Mental Status: Flat affect. Sometimes does not remember her history/tangential in history taking Weight / BMI Weight Weight: 109 lb 9.116 oz Body Mass Index (BMI) 19.4 ABG / Lab / Microbiology Data 10/14/22 07:13 10/14/22 07:13 Laboratory: Laboratory Results - last 24 hr 10/13/22 10:30: Lactic Acid 2.5 H*, Free T4 1.26, Free T3 pg/dL 2.2 10/13/22 11:00: Ammonia < 10.0 L 10/13/22 12:00: Urine Color Yellow, Urine Clarity Sl. Cloudy, Urine pH 6.0, Ur Specific [place] 1.015, Urine Protein Negative, Urine Glucose (UA) 50 H, Urine Ketones Negative, Urine Occult Blood Negative, Urine Nitrite Negative, Urine Bilirubin Negative, Urine Urobilinogen Normal, Ur Leukocyte Esterase Negative, Urine RBC 0 SEEN, Urine WBC 0 SEEN, Ur Squamous Epith Cells 0-5 SEEN, Urine Bacteria 0 SEEN, Urine Mucus 0 SEEN 10/13/22 12:45: WBC 9.4, RBC 3.35 L, Hgb 10.3 L, Hct 32.5 L, MCV 97.0, MCH 30.7, MCHC 31.7 L, RDW Std Deviation 48.4 H, RDW Coeff of Mehnaz 13.5, Plt Count 288, MPV 9.8, Immature Gran % (Auto) 0.300, Neut % (Auto) 78.3 H, Lymph % (Auto) 12.0 L, Republic % (Auto) 9.2, Eos % (Auto) 0.0, Baso % (Auto) 0.2, Absolute Neuts (auto) 7.4, Absolute Lymphs (auto) 1.13, Nucleated RBC % 0, Sodium 143, Potassium 3.5, Chloride 112 H, Carbon Dioxide 25.0, Anion Gap 6, BUN 9, Creatinine 0.87, Estim Creat Clear Calc 43.95, Est GFR (MDRD) Af Amer 82, Est GFR (MDRD) Non-Af 68, BUN/Creatinine Ratio 10.3, Glucose 91, Calcium 8.4 L, Total Bilirubin 0.30, AST 18, ALT 14, Alkaline Phosphatase 86, Total Protein 5.7 L, Albumin 2.4 L, Globulin 3.3, Albumin/Globulin Ratio 0.7 L 10/13/22 14:25: Phosphorus 3.1, Magnesium 2.2 10/13/22 18:05: Lactic Acid 0.8 10/14/22 07:13: WBC 5.7, RBC 3.15 L, Hgb 10.1 L, Hct 30.6 L, MCV 97.1, MCH 32.1 H, MCHC 33.0, RDW Std Deviation 49.1 H, RDW Coeff of Mehnaz 13.7, Plt Count 247, MPV 10.0, Immature Gran % (Auto) 0.200, Neut % (Auto) 62.2, Lymph % (Auto) 27.8, Republic % (Auto) 8.4, Eos % (Auto) 0.9, Baso % (Auto) 0.5, Absolute Neuts (auto) 3.6, Absolute Lymphs (auto) 1.59, Nucleated RBC % 0 Radiography Diagnostic Testing: Radiology Impression Abdomen/Pelvis CT 10/13/22 11:08 IMPRESSION: Large amount of fecal material is seen throughout the colon. Pneumatosis seen in the wall of the right hemicolon most likely secondary to the large amount of fecal material. Fatty infiltration of the liver. Distended urinary bladder. Scarring in the lung bases. Electronically Signed: Rafael Sherwood MD at 11:53 EDT , D/C Instructions Discharge Diet: Soft diet (Soft diet for 3 days and then regular diet.) Weight Bearing Status: Weight bearing as tolerated Call your doctor if you observe: Fever of 101 or Higher, Coldness, Increased Pain, Numbness or Tingling, Change in Color, Inability to urinate, Inability to have a bowel movement, Using more than 1 pad per hour, Shortness of breath, Dizziness, Fainting spells, Swelling in the ankles, Chest pain, Prolonged h iccupping, Increased palpitations (irregular heartbeat) and Calf discomfort When: IN 2 WEEKS Meaningful Use Info Meaningful Use Diagnoses (Choose all that apply): None applicable Discharge Plan Admission Admit Date/Time: 10/13/22 14:29 Attending Provider: Zia Posey Primary Care Provider: Harish Luis Chi Consulting Providers: Nallely Mccann Discharge Orders/Prescriptions Prescriptions: New sennosides-docusate sodium [Stool Softener-Stimulant Laxat] 8.6-50 mg Tablet 2 tab PO BID 30 Days Qty: 0 0RF Rx Instructions: Take as scheduled for 3 days and then as needed for constipation Available [id number]. bisacodyl 10 mg Suppository 10 mg CA DAILY PRN (Reason: Constipation) 30 Days Qty: 0 0RF Rx Instructions: [id number]. polyethylene glycol 3350 [Miralax] 17 gram/dose powder 17 g PO DAILY Qty: 238 0RF Rx Instructions: available over the counter ciprofloxacin HCl 500 mg tablet 500 mg PO BID 5 Days Qty: 10 0RF metronidazole 500 mg tablet 500 mg PO Q8H 5 Days Qty: 15 0RF Continued clonazepam 1 MG tablet 1 mg PO TID buspirone 7.5 MG tablet 7.5 mg PO BID gabapentin 400 mg capsule 400 mg PO Q6H acetaminophen 325 mg Tablet 650 mg PO Q6H PRN PRN (Reason: Pain 1-10 Or Fever >100.7) Qty: 0 0RF Changed naproxen 500 mg tablet 500 mg PO Q12H PRN (Reason: arthritis pain) 30 Days Qty: 0 0RF Patient Comments: TAKE 1 TABLET BY MOUTH EVERY 12 HOURS Referrals / Follow Up: Ghazal Ledesma MD [Med Staff - Active Staff] - Within 2 Weeks (for acute on chronic retention of urine) Harish Luis Chi, MD [Primary Care Provider] - Nallely Mccann MD [Med Staff - Active Staff] - Within 2 Weeks (for severe constipation ) Disposition Disposition (needs filled in before D/C Order can be placed): Home, Self Care Charges/Coding Visit Charges Inpatient E&M: 47635 Disch Hosp >30min
[2022-10-14 08:45] LABS: Anion Gap 3 (5-15); BUN 6 mg/dL (7-18); BUN/Creat Ratio 8.1 RATIO (10-20); Calcium,Total 8.4 mg/dL (8.5-10.1); Chloride 114 mmol/L (98-107); Creatinine, Serum 0.74 mg/dL (0.55-1.02); EST Glomerular Filtration Rate 82 mL/min (>60); Est Glom Filt Rate - Afr Amer 99 mL/min (>60); Glucose 100 mg/dL (74-106); Potassium 3.6 mmol/L (3.5-5.1); Sodium Level 143 mmol/L (136-145); Thyroid Stim Hormone (TSH) 0.04 uIU/mL (0.358-3.74)
[2022-10-14] MEDS: Tamsulosin HCl 0.4 MG Capsule PO (09:34)
[2022-10-14] MEDS: Ciprofloxacin 400 MG/200 ML BAG 200 MG IV (09:36)
--- NOTE | 2022-10-14 09:38 | NURSING ---
klonopin not verified by Rx at this time
--- NOTE | 2022-10-14 09:45 | CASEMGMT ---
RN?CM?CROSSBAND LAYER?CM?to room to meet with patient for initial transition planning/care coordination?assessment.?RN?CM?introduced self and role at [facility].? Pt voices understanding and consents to?assessment?at this time.? Pt resting in bed in no distress at this time.? came into room in the middle of the assesment. Pt is A/O at this time and answers all questions appropriately.?? Care providers, pharmacy, and demographics verified/updated at this time. PCP: Dr Luis Specialists: none Preferred Pharmacy: [facility] Retail Insurance: Weavly Secure Prescription Benefit: yes Living Will/HPOA: Pt states has LW and HCPOA, who is her , Irving TERRAZAS: Living Arrangements: Patient lives with in a 2 story home w/2 steps to enter. Pt states she does okay w/the stairs and if needed, can assist. Bedroom and bath on first floor. Patient states she is independent w/ADL's and IADL's, although states she has fallen this past week. Pt states she manages her own meds. Transportation: does most of the driving, but pt states she does still drive some. DME: Patient has shower chair, cane, walker, and grab bars at home. Pt denies any further DME needs. SNF/HHC: No previous HHC or SNF. PT/OT evals pending. Pt states she feels safe to return home. Discussed HHC. Pt and made aware, if they are interested in HHC that this cannot be set up on the weekend and also that Dr Luis requires office visit prior to following for HHC and to f/u with him, if she is interested in HHC. Pt may discharge home w/ F/C. If so, she was made aware nurse would teach her how to manage it and she states feels comfortable w/it as long as someone shows her what to do. Pt wishes to return home and states has no concerns with going home at time of discharge.?? Pt and voice no concerns/needs at this time.? PLAN:??Home w/spousal support and discharge plans in place. PT/OT evals pending. Lamberto BSN?RN?CM
[2022-10-14 10:47] LABS: T4 Free Direct 1.27 ng/dL (0.76-1.46)
[2022-10-16 08:37] LABS: Vitamin B12 312 pg/mL (211-911); Vitamin D,25 Hydroxy 38.7 ng/mL
== END 2022-10-14 11:34 | disposition home or self-care (01) | DRG 390 ==
LOC: ED 14:37 → MS3 15:06
PROVIDERS: Admitting Provider Internal Medicine; Emergency Provider Emergency Medicine; PCP Family Medicine Geriatric Medicine; Visit Provider Internal Medicine
DX: K56.0 Paralytic ileus (principal); M41.86 Other forms of scoliosis, lumbar region; E78.00 Pure hypercholesterolemia, unspecified; F41.9 Anxiety disorder, unspecified; F32.A Depression, unspecified; I10 Essential (primary) hypertension; K59.00 Constipation, unspecified; M51.36 Other intervertebral disc degeneration, lumbar region; K21.00 Gastro-esophageal reflux disease with esophagitis, without bleeding; N31.9 Neuromuscular dysfunction of bladder, unspecified; R26.81 Unsteadiness on feet; R42 Dizziness and giddiness; R33.9 Retention of urine, unspecified; Z98.1 Arthrodesis status; Z79.899 Other long term (current) drug therapy; Z87.01 Personal history of pneumonia (recurrent); Z86.16 Personal history of COVID-19; Z87.891 Personal history of nicotine dependence
CPT/HCPCS: 36415; 51702; 74177; 80048; 80053; 81001; 82140; 82306; 82607; 82746; 83605; 83735; 84100; 84439; 84443; 84481; 85025; 94668; 99285; J7030; J7120; Q9967; A4216; J0744

== ENCOUNTER 2022-11-01 07:45 | Inpatient (IN) | payer MEDICARE, SELFPAY ==
[2022-11-01] VITALS (9 sets, daily range): BP systolic 108–171; BP diastolic 51–90; PULSE 69–83; RESP 12–18; TEMP 36.3–36.8; O2SAT 93–100; BMI 19.7
--- NOTE | 2022-11-01 07:48 | EX.ED.DYSGE1 ---
HPI History of Present Illness Chief Complaint: Weakness [facility] Medical History Allergic rhinitis Ambulates with cane Anxiety Arthritis Asthma Back pain Carpal tunnel syndrome on both sides Chronic cough Chronic lower back pain Closed head injury COVID-19 Debility Depression Depression Dysphagia Edema Former smoker Gastric reflux Gastroparesis Generalized weakness GERD High cholesterol History of stress test HLD (hyperlipidemia) Hypertension Hypoxia Insomnia Irritable bowel syndrome without diarrhea Ischemic bowel disease Low back pain Migraine Migraine headache Movement disorder Pain from implanted hardware Palpitations Palpitations Post-menopausal Scoliosis Scoliosis of lumbar spine Segmental and somatic dysfunction of lumbar region Segmental and somatic dysfunction of pelvic region Segmental dysfunction of thoracic region Shortness of breath on exertion SOB (shortness of breath) Stenosis, cervical spine Uses wheelchair Vitamin D deficiency Walker as ambulation aid Wears dentures Wears glasses Wears hearing aid Home Medications buspirone 7.5 mg tablet 7.5 mg PO BID Check with primary doctor 02/17/20 [History Last Taken 04/26/22] clonazepam 1 mg tablet 1 mg PO TID anxiety 02/17/20 [History Last Taken 04/26/22] gabapentin 400 mg capsule 400 mg PO Q6H Check with primary doctor 04/20/22 [History Last Taken 04/26/22] acetaminophen 325 mg tablet 650 mg (2 x 325 mg) PO Q6H PRN PRN Pain 1-10 Or Fever >100.7 #0 tabs 08/02/22 [Rx Last Taken Unknown] bisacodyl 10 mg rectal suppository 10 mg FL DAILY PRN Constipation 30 days #0 ea 10/14/22 [Rx Last Taken Unknown] ciprofloxacin HCl 500 mg tablet 500 mg PO BID 5 days #10 tabs 10/14/22 [Rx Last Taken Unknown] metronidazole 500 mg tablet 500 mg PO Q8H 5 days #15 tabs 10/14/22 [Rx Last Taken Unknown] naproxen 500 mg tablet 500 mg PO Q12H PRN arthritis pain 30 days #0 tabs 10/14/22 [Rx Last Taken Unknown] polyethylene glycol 3350 17 gram/dose oral powder (Miralax) 17 g PO DAILY #238 grams 10/14/22 [Rx Last Taken Unknown] sennosides 8.6 mg-docusate sodium 50 mg tablet (Stool Softener-Stimulant Laxative) 2 tab PO BID 30 days #0 tabs 10/14/22 [Rx Last Taken Unknown] Allergy/AdvReac Type Severity Reaction Status Date / Time hydrocodone [From Vicodin] Allergy NERVOUS, Verified 11/01/22 07:46 JITTERY Penicillins Allergy Rash Verified 11/01/22 07:46 Family History Other CVA (cerebral vascular accident) Cancer Hypertension Surgical History History of 2 sections History of cardiac catheterization History of lumbar laminectomy Hx of dilation and curettage Hx of surgical procedure Social History Smoking Status: Former smoker alcohol intake: never substance use type: does not use what type of physical activity do you participate in: none EXAM Physical Exam Const Vital Signs: 11/01/22 07:48 11/01/22 07:48 11/01/22 07:52 Temperature 97.7 F L 97.4 F L Temperature Source Temporal Temporal Pulse Rate 80 79 Respiratory Rate 12 15 Respiratory Effort Normal Non-Labored Respiratory Pattern Normal Blood Pressure 109/74 Blood Pressure Mean 85 Pulse Ox 93 96 Oxygen Delivery Method Room Air Room Air MDM MDM MDM Narrative Medical decision making narrative: HISTORY OF PRESENT ILLNESS: 72-year-old female here with concern for weakness. The patient is altered and is not providing history. Per EMS patient was brought in secondary to diffuse weakness and frequent falls. Per the patient's she has been having progressive functional neurologic decline over last month. Notes she forgets things easily notes she has trouble getting around notes frequent falls. Notes this morning he came downstairs noted the patient was on the floor. States he had a hard time getting up and so he called EMS. States he cannot handle her at home. REVIEW OF SYSTEMS: Patient is altered and does not provide reliable history. PHYSICAL EXAM: Nursing triage notes reviewed, Vital signs reviewed Constitutional: please see mdm HENT: MMM, atraumatic, normocephalic Eyes: Pupils equal round and reactive to light, Extraocular muscles intact Neck: No stridor, no JVD, full neck ROM Lungs: Clear to auscultation, No wheezing or rales. No increased work of breathing, no conversational dyspnea, no accessory muscle use, no nasal flaring. No respiratory distress noted Heart: Regular rate and rhythm, No murmurs, No rubs and No gallops, 2+ distal pulses (radial, femoral, posterior tibial) in all extremities Abdomen: Soft, there is no obvious elicited tenderness,no obvious peritoneal signs, no palpable pulsatile abdominal masses, no auscultated abdominal bruit : No CVAT Extremities: No edema Neuro: Somnolent, oriented only to person not to place or time of my exam, no obvious cranial nerve deficits, moves all 4 extremities, sensation all 4 extremities Skin: No rash or lesions noted MEDICAL DECISION MAKING: Chief Complaint: Altered mental status, weakness External records reviewed: Last hospitalization in September 2022 for abnormal abdominal imaging Factors affecting care: Oropharyngeal dysphagia, arthritis, anxiety, depression, ileus Social determinants of health: Elderly History obtained from others: EMS, family Consults: Internal medicine ALL IMAGES (IF OBTAINED) HAVE BEEN PERSONALLY REVIEWED AND INTERPRETED BY MYSELF. EKG with normal sinus rhythm, normal axis, no intervals, no STEMI MDM Narrative: The patient was hemodynamically stable, afebrile and nontoxic-appearing. I considered the following differential diagnosis: Intracranial hemorrhage, CVA, ACS, electrolyte abnormalities, infectious or metabolic encephalopathy, toxic ingestion, polypharmacy, dehydration I obtained a broad lab and imaging work-up to further elucidate the etiology the patient complaints. Give the patient 1 L normal saline. Patient CT scan of head and cervical spine were negative for acute traumatic injury. EKG troponin were negative for signs of myocardial ischemia. Labs evidence of significant metabolic abnormalities to suggest metabolic acidosis. Serum alcohol was negative. No evidence of dehydration on labs. Urinalysis negative. Drug seen positive for ecstasy. Given the patient's alteration mental status, failure to thrive, gait instability as well as the patient's 's report that he is unable to take care of her at home. She will need admission for ongoing evaluation, PT/OT evaluation and possible placement. Patient's is agreeable to placement stating he cannot take care of her at home. The patient and/or family, caregivers express understanding. The patient and/or family, caregivers agrees with the plan. Shared decision making: I will have a discussion with the patient and or visitors regarding risk/benefits of further testing or admission. They will be made aware of of the risk/benefits inherent in this decision they will be given the opportunity to voice understanding. Total critical care time today provided was at least 0 minutes. This excludes separately billable procedures. Critical care time (if documented) is secondary to the patient having high probability of clinically significant/life threatening deterioration in the patient's condition which required my urgent intervention. Lab Data Attestation: I reviewed the patient's lab results. Lab results narrative: CBC without leukocytosis, severe anemia, no thrombocytopenia. BMP without evidence of significant electrolyte abnormalities, no anion gap, no acute kidney injury. Lactate is wnl indicating no end-organ hypoperfusion and/or hypoxia. TSH not suggestive of hypothyroidism Troponin is negative, no evidence of myocardial ischemia LFTs show no evidence of hepatobiliary pathology. CK borderline elevated not consistent with acute rhabdomyolysis Serum alcohol negative Labs: Laboratory Results - last 24 hr 11/01/22 11/01/22 11/01/22 07:30 08:04 09:05 WBC 3.6 L RBC 3.87 L Hgb 12.2 Hct 38.5 MCV 99.5 H MCH 31.5 MCHC 31.7 L RDW Std Deviation 52.0 H RDW Coeff of Mehnaz 14.3 Plt Count 399 MPV 9.9 Immature Gran % (Auto) 0.300 Neut % (Auto) 44.7 L Lymph % (Auto) 38.1 Gillespie % (Auto) 10.0 Eos % (Auto) 5.0 Baso % (Auto) 1.9 H Absolute Neuts (auto) 1.6 L Absolute Lymphs (auto) 1.37 Nucleated RBC % 0 Sodium 144 Potassium 3.7 Chloride 114 H Carbon Dioxide 25.0 Anion Gap 5 BUN 10 Creatinine 0.88 Estim Creat Clear Calc 45.70 Est GFR (MDRD) Af Amer 81 Est GFR (MDRD) Non-Af 67 BUN/Creatinine Ratio 11.4 Glucose 100 Lactic Acid 0.9 Calcium 9.0 Total Bilirubin 0.40 AST 19 ALT 30 Alkaline Phosphatase 97 Total Creatine Kinase 211 H Troponin I High Sens 4 Total Protein 6.9 Albumin 2.6 L Globulin 4.3 H Albumin/Globulin Ratio 0.6 L Lipase 21 TSH 0.09 L Ur Drug Screen Comment Ethyl Alcohol < 3.0 Radiography Chest X-Ray - ED: Read by ED Physician Diagnostic Testing: Clinical Impression(s) from Imaging Studies Brain CT 11/01/22 08:00 IMPRESSION: Chronic involutional changes of the brain. Stable examination. Electronically Signed: Rafael Sherwood MD at 8:44 EDT , Cervical Spine CT 11/01/22 08:02 IMPRESSION: Multilevel degenerative changes, as described above. 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 Electronically Signed: Rafael Sherwood MD at 8:46 EDT , Chest X-Ray 11/01/22 08:30 IMPRESSION: Stable bibasilar infiltrates. Follow-up recommended. Electronically Signed: Rafael Sherwood MD at 8:47 EDT , Chest x-ray personally read reviewed by myself shows evidence of possible right lung infiltrate. Compared to prior x-ray looks similar. Discharge Plan Triage Chief Complaint: Weakness ED Provider: Armando Miranda Dx/Rx/DC Orders Clinical Impression: Acute alteration in mental status, Influenza B Primary Care Provider: Harish Luis Chi
--- NOTE | 2022-11-01 07:54 | EKG12_ITS ---
Test Reason : WEAKNESS Blood Pressure : / mmHG Vent. Rate : 073 BPM Atrial Rate : 073 BPM P-R Int : 164 ms QRS Dur : 074 ms QT Int : 386 ms P-R-T Axes : 071 075 070 degrees QTc Int : 425 ms Normal sinus rhythm with sinus arrhythmia Low voltage QRS Borderline ECG Confirmed by DEB FRANKLIN ([id number]), newspaper copy editor KRISTA KINNEY ([id number]) on 11/02/2022 11:23:58 AM Referred By: KOJO Confirmed By:DEB FRANKLIN
--- NOTE | 2022-11-01 08:00 | CT_ITS ---
STUDY: CT BRAIN WITHOUT CONTRAST REASON FOR EXAM: Female, 72 years old. AMS. Increasing confusion. Falls. RADIATION DOSAGE (If Supplied By Facility): CTDIvol = ( 44.99 ) mGy, DLP = ( 829.85 ) mGycm TECHNIQUE: Transaxial CT imaging of the brain was performed without administration of intravenous contrast material. Individualized dose optimization techniques were used for this CT. COMPARISON: Comparison is made with prior examination of October 12, 2022. FINDINGS: Normal soft tissue structures. Normal calvarium. There is mild cerebral atrophy with widening of the extra-axial spaces and ventricular dilatation. Stable focal encephalomalacia in the posterior medial aspect of the right prior occipital lobe. Normal basal ganglia and thalami. Normal brainstem. Normal cerebellum. There is no intracranial hemorrhage. There are no findings of an acute ischemic infarction. Normal visualized paranasal sinuses. CT/Brain/Head without Contrast IMPRESSION: Chronic involutional changes of the brain. Stable examination. Electronically Signed: Rafael Sherwood MD at 8:44 EDT ,
--- NOTE | 2022-11-01 08:02 | CT_ITS ---
STUDY: CT CERVICAL SPINE WITHOUT CONTRAST REASON FOR EXAM: Female, 72 years old. Fall, neck pain. RADIATION DOSAGE (If Supplied By Facility): CTDIvol = ( 12.12 ) mGy, DLP = ( 245.99 ) mGycm TECHNIQUE: High resolution transaxial imaging was performed without contrast material. Sagittal and coronal images were reconstructed. Individualized dose optimization techniques were used for this CT. COMPARISON: Comparison is made with prior examination of August 26, 2022. FINDINGS: Normal craniovertebral junction. Normal anterior atlantoaxial articulation. Normal odontoid process. Normal cervical lordosis. Normal vertebral bodies and posterior osseous elements. C2-3: Normal endplates. Normal disc height and morphology. Normal central canal and intervertebral neuroforamina. C3-4: Normal endplates. Normal disc height and morphology. Normal central canal and intervertebral neuroforamina. C4-5: Normal endplates. Normal disc height and morphology. Normal central canal and intervertebral neuroforamina. C5-6: Moderate degree of disc space narrowing. Spondylosis. Uncovertebral arthrosis. Moderate degree of bilateral neural foraminal stenosis. C6-7: Moderate degree of disc space narrowing. Spondylosis. Large posterior osteophyte causing compression of the central canal. This is worse on the left side. C7-T1: Normal endplates. Normal disc height and morphology. Normal central canal and intervertebral neuroforamina. Atherosclerotic plaque formation of the carotid bifurcations bilaterally. CT/Spine Cervical without Contras IMPRESSION: Multilevel degenerative changes, as described above. 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 Electronically Signed: Rafael Sherwood MD at 8:46 EDT ,
[2022-11-01 08:16] LABS: Absolute Lymphocyte Count 1.37 X10^3/uL (0.83-4.51); Absolute Neutrophil Count 1.6 X10^3/uL (2.0-7.7); Basophil# 0.07 X10^3/uL; Basophil% 1.9 % (0-1); Eosinophil# 0.18 X10^3/uL; Hematocrit 38.5 % (37-47); Hemoglobin 12.2 g/dL (12.0-15.0); Lymphocyte # 1.37 X10^3/ul (0.83-4.51); Lymphocyte % 38.1 % (19-41); Mean Corp Hgb Conc 31.7 g/dL (32-36); Mean Corpuscular Hgb 31.5 pg (27.0-32.0); Mean Corpuscular Volume 99.5 fL (81-99); Mean Platelet Vol. 9.9 fl (6.2-12.0); Monocyte# 0.36 X10^3/uL; NRBC Flagged by Analyzer 0 % (0-5); Neutrophil # 1.61 X10^3/uL (2.7-7.7); Neutrophil % 44.7 % (47-70); Platelet Count 399 K/mm3 (150-450); RBC Distribution Width CV 14.3 % (11.6-14.6); Red Blood Count 3.87 M/mm3 (4.2-5.4); White Blood Count 3.6 K/mm3 (4.4-11.0)
--- NOTE | 2022-11-01 08:30 | RAD_ITS ---
STUDY: X-RAY CHEST REASON FOR EXAM: Female, 72 years old. Altered mental status r/o PNA TECHNIQUE: Single AP portable view of the chest. COMPARISON: Comparison is made with prior study October 12, 2022. FINDINGS: EKG electrodes are seen. Persistent bibasilar infiltrates. An element of scarring should be ruled out. There is no demonstrated pleural abnormality. Normal size heart. Normal mediastinum and renea. Normal visualized pulmonary arteries. There is atherosclerotic calcification of the aortic arch with tortuosity. Electrodes from a TENS unit are seen with the tip at the T6-T7 level. There is degenerative osteoarthritis of the bilateral shoulders. There is no demonstrated abnormality of the visualized soft tissue structures of the upper abdomen. RAD/Chest 1 View (Portable) IMPRESSION: Stable bibasilar infiltrates. Follow-up recommended. Electronically Signed: Rafael Sherwood MD at 8:47 EDT ,
[2022-11-01 08:37] LABS: Alcohol, Blood (Medical)-Serum < 3.0 mg/dL
[2022-11-01 08:47] LABS: ALB/GLOB Ratio 0.6 RATIO (0.9-2.4); AST(SGOT) 19 U/L (15-37); Alanine Aminotransfer ALT/SGPT 30 U/L (13-56); Albumin, Serum 2.6 g/dL (3.2-5.0); Alkaline Phosphatase 97 U/L (45-117); Anion Gap 5 (5-15); BUN 10 mg/dL (7-18); BUN/Creat Ratio 11.4 RATIO (10-20); Chloride 114 mmol/L (98-107); Creatinine, Serum 0.88 mg/dL (0.55-1.02); EST Glomerular Filtration Rate 67 mL/min (>60); Est Glom Filt Rate - Afr Amer 81 mL/min (>60); Globulin 4.3 g/dL (2.2-4.2); Glucose 100 mg/dL (74-106); Lipase 21 U/L (13-75); Potassium 3.7 mmol/L (3.5-5.1); Protein, Total 6.9 g/dL (6.4-8.2); Sodium Level 144 mmol/L (136-145); Thyroid Stim Hormone (TSH) 0.09 uIU/mL (0.358-3.74); Troponin-I HS 4 pg/mL (3.0-54.0)
[2022-11-01 08:48] LABS: Lactic Acid 0.9 mmol/L (0.4-1.9)
[2022-11-01 09:05] LABS: CPK Total, Creatine Kinase 211 U/L (26-192)
[2022-11-01 09:06] LABS: Bacteria 0 SEEN /hpf (None Seen); Mucous, Urine 0 SEEN /hpf (<or=2+); Red Blood Cells-Urine 0 SEEN /hpf (0-5); Squamous Epithelial Cells - UA 0 SEEN /hpf (5-10); White Blood Cells 0 SEEN /hpf (0-5)
[2022-11-01 09:09] LABS: Color, Urine Yellow (Yellow); Glucose, Dipstick Normal (Normal); Ketone-Dipstick Negative (Negative); Leukocyte Esterase-Dipstick Negative /ul (Negative); Nitrite-Dipstick Negative (Negative); Occult Blood-Urine Negative /ul (Negative); Protein-Dipstick Negative (Negative); Urine Bilirubin Dipstick Negative (Negative); Urine Clarity Sl. Cloudy (Clear); Urine Urobilinogen Normal (Normal)
[2022-11-01 09:49] LABS: Amphetamine Urine VISTA NEGATIVE (<1000 ng/mL); Barbiturate Urine VISTA NEGATIVE (< 200 ng/mL); Benzodiazepine Urine VISTA NEGATIVE (< 200 ng/mL); Cocaine Urine VISTA NEGATIVE (< 300 ng/mL); Ecstacy Urine VISTA POSITIVE (< 500 ng/mL); Methadone Urine VISTA NEGATIVE (< 300 ng/mL); PCP Urine VISTA NEGATIVE (< 25 ng/mL); THC Urine VISTA NEGATIVE (< 50 ng/mL); Vista UDS pH Range 5
--- NOTE | 2022-11-01 09:58 | NURSING ---
MED SURG GREG AMS, INABILITY TO AMBULATE
[2022-11-01 10:06] LABS: T4 Free Direct 1.18 ng/dL (0.76-1.46)
[2022-11-01 10:17] LABS: Allen Test Positive; Base Excess -3 mmol/L (-2 to +2); Blood Gas Specimen Type ART; O2 Delivery Device Room Air; PO2 86 mmHG (75-100); SITE L Radial; SO2 96 % (95-99); Total Carbon Dioxide 24 mmol/L; pCO2 41.6 mmHg (35-45); pH 7.35 (7.35-7.45)
--- NOTE | 2022-11-01 11:21 | PCM.HP.STD ---
HPI - General General Date of Admission: 11/01/22 Date of Service: 11/01/22 Chief Complaint: Falls/debility/weakness/mental status changes HPI Narrative CAROL ZARAGOZA, is a 72 F who presented to the emergency department at [facility] on 11/01/2022 with her who provides most of her history due to her mental status with a chief complaint of mental status changes, generalized weakness, and falls. Her reported that over the last 2 months and probably a little bit longer she has had progressive neurological changes and worsening weakness with falls. He states she is typically ambulating with a cane but is not good enough to support her. Her ambulation and functional status is so poor at this time he is indicating he is unable to take her home. She is having frequent falls. She sleeps downstairs on the couch and he sleeps upstairs in the last 2 nights he has found her laying on the floor after her rolling off the couch. He is having difficulty getting her around and cannot handle her at home. He also notes that her memory has been poor. He gave an example of last evening she was trying to make dinner for him and her son and put a jar of Food in the meal. He states that she has had progressive changes over the past several months but it is been slowly getting worse. She is on clonazepam is unclear how much she takes as she manages her own medications but he does feel she probably takes quite a bit. It is ordered from what I can tell 1 mg 3 times daily however we do not have an updated med reconciliation as of yet. Vital signs on presentation show a temperature of 97.7, heart rate 80, blood pressure 109/74, respiratory rate 12, oxygen saturations 93% on room air. Her CBC was overall unremarkable. She had a mild leukopenia with a white count of 3.6 but a normal hemoglobin and platelet count. Her differential showed basophilia. ABG was unimpressive with normal pH and PCO2 of 41.6 and a PO2 of 86 on room air. Her chemistry panel was unrevealing and had no significant abnormalities. Liver functions are normal. Ammonia level was 11. CK was mildly elevated at 211. Lipase was normal. Her UA is unremarkable for any signs of infection. CT of the brain shows chronic involutional changes. CT of the cervical spine shows spinal stenosis at C6-C7 with central canal osteophyte compressing on the cord. Chest x-ray is unremarkable. EKG was normal sinus rhythm with normal intervals and no ST-T wave changes concerning for acute ischemia. [facility], [facility] Medical History Abnormal CT of the abdomen Allergic rhinitis Ambulates with cane Anxiety Arthritis Asthma Back pain Carpal tunnel syndrome on both sides Chronic cough Chronic lower back pain Closed head injury COVID-19 Debility Depression Depression Dysphagia Edema Former smoker Gastric reflux Gastroparesis Generalized weakness GERD High cholesterol History of stress test HLD (hyperlipidemia) Hypertension Hypoxia Insomnia Irritable bowel syndrome without diarrhea Ischemic bowel disease Low back pain Migraine Migraine headache Movement disorder Pain from implanted hardware Palpitations Palpitations Post-menopausal Scoliosis Scoliosis of lumbar spine Segmental and somatic dysfunction of lumbar region Segmental and somatic dysfunction of pelvic region Segmental dysfunction of thoracic region Shortness of breath on exertion SOB (shortness of breath) Stenosis, cervical spine Uses wheelchair Vitamin D deficiency Walker as ambulation aid Wears dentures Wears glasses Wears hearing aid Home Medications buspirone 7.5 mg tablet 7.5 mg PO BID Check with primary doctor 02/17/20 [History Last Taken 04/26/22] clonazepam 1 mg tablet 1 mg PO TID anxiety 02/17/20 [History Last Taken 04/26/22] gabapentin 400 mg capsule 400 mg PO Q6H Check with primary doctor 04/20/22 [History Last Taken 04/26/22] acetaminophen 325 mg tablet 650 mg (2 x 325 mg) PO Q6H PRN PRN Pain 1-10 Or Fever >100.7 #0 tabs 08/02/22 [Rx Last Taken Unknown] bisacodyl 10 mg rectal suppository 10 mg NV DAILY PRN Constipation 30 days #0 ea 10/14/22 [Rx Last Taken Unknown] ciprofloxacin HCl 500 mg tablet 500 mg PO BID 5 days #10 tabs 10/14/22 [Rx Last Taken Unknown] metronidazole 500 mg tablet 500 mg PO Q8H 5 days #15 tabs 10/14/22 [Rx Last Taken Unknown] naproxen 500 mg tablet 500 mg PO Q12H PRN arthritis pain 30 days #0 tabs 10/14/22 [Rx Last Taken Unknown] polyethylene glycol 3350 17 gram/dose oral powder (Miralax) 17 g PO DAILY #238 grams 10/14/22 [Rx Last Taken Unknown] sennosides 8.6 mg-docusate sodium 50 mg tablet (Stool Softener-Stimulant Laxative) 2 tab PO BID 30 days #0 tabs 10/14/22 [Rx Last Taken Unknown] Allergy/AdvReac Type Severity Reaction Status Date / Time hydrocodone [From Vicodin] Allergy NERVOUS, Verified 11/01/22 07:46 JITTERY Penicillins Allergy Rash Verified 11/01/22 07:46 Family History Other CVA (cerebral vascular accident) Cancer Hypertension Surgical History History of 2 sections History of cardiac catheterization History of lumbar laminectomy Hx of dilation and curettage Hx of surgical procedure Social History (Updated 11/01/22 @ 11:[address] Helena Ann DO) household members: spouse housing: house number of children: 2 Smoking Status: Current every day smoker tobacco type: e-cigarettes alcohol intake: never substance use type: does not use what type of physical activity do you participate in: none additional social history: Currently ambulating with a cane ROS Review of Systems ROS Unobtainable: due to mental status Vital Signs Vital Signs Vital Signs: 11/01/22 07:48 11/01/22 07:48 11/01/22 07:52 Temperature 97.7 F L 97.4 F L Temperature Source Temporal Temporal Pulse Rate 80 79 Respiratory Rate 12 15 Respiratory Effort Normal Non-Labored Respiratory Pattern Normal Blood Pressure 109/74 Blood Pressure Mean 85 Pulse Ox 93 96 Oxygen Delivery Method Room Air Room Air 11/01/22 09:11 11/01/22 10:01 11/01/22 11:00 Temperature 98.3 F Temperature Source Temporal Pulse Rate 69 69 Respiratory Rate 13 13 Respiratory Effort Respiratory Pattern Blood Pressure 119/51 L 108/72 110/54 L Blood Pressure Mean 73 84 72 Pulse Ox 99 99 Oxygen Delivery Method Room Air Room Air Weight Weight: 50.4 kg Body Mass Index (BMI) 19.7 Physical Exam Const no apparent distress; Negative for alert, oriented x3, average body habitus, healthy appearing or well nourished Constitutional Narrative: Extremely somnolent, thin, elderly, white female, lying in bed, at bedside, appears comfortable and nontoxic, arouses to some verbal and noxious stimuli but falls back to sleep easily Orientation / Consciousness: confused and lethargic HEENT normocephalic and head/scalp atraumatic HEENT Narrative: Mucous membranes are somewhat dry, Mallampati is 1, dentures in place, no thrush Eyes PERRL and conjunctivae normal Eyes Narrative: No scleral icterus, unable to check EOM secondary to mental status Neck no lymphadenopathy and supple Neck Narrative: Trachea midline, no thyroid enlargement Resp normal respiratory effort, no retractions, no use of accessory muscles and No clear to auscultation bilaterally Resp Narrative: Very few scattered wheezes, no other adventitious sounds Auscultation: wheezes; Negative for rales or rhonchi Cardio regular rate, regular rhythm, S1 normal heart sound, S2 normal heart sound, no murmurs, no rub, no gallops and no clicks GI normal to inspection, nondistended, normoactive bowel sounds, soft to palpation and non-tender GI Narrative: Scaphoid abdomen Extremity no clubbing, cyanosis or edema Extremity Narrative: Crease lean muscle mass, pedal pulses are 2+, rate is are 2+ Skin no wounds, skin turgor normal, no jaundice, no petechiae and no mottling Skin Narrative: Scattered bruises with no lacerations or skin tears, skin is pale Neuro Neuro Narrative: Extremely difficult, patient reacts to noxious stimuli and withdraws all extremities moving them however difficult to ascertain whether is any change or for signs of focal deficits, speech is somewhat garbled and patient keeps eyes closed during exam, no clonus, reflexes are 1+ throughout Psych Psych Narrative: Patient extremely somnolent and lethargic-unable to assess Results Lab / Micro Data 11/01/22 07:30 11/01/22 07:30 Labs: Laboratory Results - last 24 hr 11/01/22 07:30: WBC 3.6 L, RBC 3.87 L, Hgb 12.2, Hct 38.5, MCV 99.5 H, MCH 31.5, MCHC 31.7 L, RDW Std Deviation 52.0 H, RDW Coeff of Mehnaz 14.3, Plt Count 399, MPV 9.9, Immature Gran % (Auto) 0.300, Neut % (Auto) 44.7 L, Lymph % (Auto) 38.1, [place] % (Auto) 10.0, Eos % (Auto) 5.0, Baso % (Auto) 1.9 H, Absolute Neuts (auto) 1.6 L, Absolute Lymphs (auto) 1.37, Nucleated RBC % 0, Sodium 144, Potassium 3.7, Chloride 114 H, Carbon Dioxide 25.0, Anion Gap 5, BUN 10, Creatinine 0.88, Estim Creat Clear Calc 45.70, Est GFR (MDRD) Af Amer 81, Est GFR (MDRD) Non-Af 67, BUN/Creatinine Ratio 11.4, Glucose 100, Calcium 9.0, Total Bilirubin 0.40, AST 19, ALT 30, Alkaline Phosphatase 97, Total Creatine Kinase 211 H, Troponin I High Sens 4, Total Protein 6.9, Albumin 2.6 L, Globulin 4.3 H, Albumin/Globulin Ratio 0.6 L, Lipase 21, TSH 0.09 L, Free T4 1.18, Ethyl Alcohol < 3.0 11/01/22 08:04: Lactic Acid 0.9 11/01/22 09:05: Urine Color Yellow, Urine Clarity Sl. Cloudy, Urine pH 7.0, Ur Specific [place] 1.010, Urine Protein Negative, Urine Glucose (UA) Normal, Urine Ketones Negative, Urine Occult Blood Negative, Urine Nitrite Negative, Urine Bilirubin Negative, Urine Urobilinogen Normal, Ur Leukocyte Esterase Negative, Urine RBC 0 SEEN, Urine WBC 0 SEEN, Ur Squamous Epith Cells 0 SEEN, Urine Bacteria 0 SEEN, Urine Mucus 0 SEEN, Urine Opiates Screen NEGATIVE, Urine Methadone Screen NEGATIVE, Ur Barbiturates Screen NEGATIVE, Ur Phencyclidine Scrn NEGATIVE, Ur Amphetamines Screen NEGATIVE, MDMA (Ecstasy) Screen POSITIVE H, U Benzodiazepines Scrn NEGATIVE, Urine Cocaine Screen NEGATIVE, U Cannabinoids Screen NEGATIVE, Ur Drug Screen Comment 11/01/22 10:00: Ammonia 11.0 Micro: Microbiology 11/01/22 08:10 Nasal Secretion SARS-CoV-2 & FLU Antigen (Rapid) - Final ABG Data ABG results: ABG 11/01/22 10:13 Specimen Type ART Sample Site L Radial pH 7.35 Bicarbonate Actual 23.0 Total CO2 24 Base Excess -3 L O2 Saturation 96 ABG pCO2 41.6 ABG pO2 86 Mikel Test Positive O2 Delivery Device Room Air Radiology Impression Brain CT 11/01/22 08:00 IMPRESSION: Chronic involutional changes of the brain. Stable examination. Electronically Signed: Rafael Sherwood MD at 8:44 EDT , Cervical Spine CT 11/01/22 08:02 IMPRESSION: Multilevel degenerative changes, as described above. 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 Electronically Signed: Rafael Sherwood MD at 8:46 EDT , Chest X-Ray 11/01/22 08:30 IMPRESSION: Stable bibasilar infiltrates. Follow-up recommended. Electronically Signed: Rafael Sherwood MD at 8:47 EDT , Assessment & Plan Assessment/Plan (1) Toxic metabolic encephalopathy: (2) Generalized weakness: (3) Debility: (4) Abnormal TSH: (5) Influenza B: (6) Cervical stenosis of spine: PLAN: Plan Toxic/metabolic encephalopathy -Patient was extremely lethargic at the time of presentation and not able to keep her eyes open -We will hold home Klonopin for now and his mental status improves would recommend continuing Klonopin at half a milligram 3 times daily with a slow wean to get her off of benzodiazepines -Check LP -Fluid studies ordered -Check MRI of the brain with and without contrast if possible -Patient with history of spinal cord stimulator--> better removed but leads still in place will need to check if possible to perform MRI -Ammonia levels unremarkable -Blood gas is unremarkable for any CO2 narcosis -Work-up for infection thus far is unrevealing -It sounds as if the patient may have some baseline dementia but is acutely worse -Toxicology screen performed and only shows ecstasy--> suspect false positive due to drug interaction -Speech therapy consultation for cognitive eval Severe stenosis at C6-C7 with large posterior osteophyte causing compression of the central canal worse on the left -MRI of possible -May need spine surgery evaluation depending on MRI -Exam was difficult on presentation due to mental status--> will need better neurological eval once patient is more capable of participating Debility/generalized weakness -MRI above if possible as noted for cervical spine work-up -Check MRI of the brain with and without contrast if possible -PT/OT consultation -Per discussion with he is unable to care for at home and she will need placement upon discharge -Social work/case management consultation Abnormal TSH -Free T4 was obtained and found to be normal so suspect euthyroid sick Severe malnutrition -Consult dietitian -P.o. intake has been extremely poor and patient has been losing weight -Add supplements when p.o. intake is possible and appropriate Positive influenza B test -Antigen was positive only and patient had recent flu B back in July -We will check viral PCR but suspicion for influenza is extremely low Recent colonic ileus -Monitor closely for signs of constipation -Would recommend initiation of bowel regimen after oral intake can be pursued History of urinary retention -Monitor -At last visit at the end of September outpatient follow-up with urology was recommended History of dysphagia -Speech therapy consultation -MBS performed on 516 showed moderate to severe oropharyngeal dysphagia and esophageal dysphagia and EGD was performed that showed mild esophagitis and a dilated esophagus -Gastric emptying study was performed as there is a large amount of food in her stomach but I do not see that she ever followed up and had a gastric emptying study -There was concern based on the studies that she could have a neurological disorder and referral to [facility] neurological clinic or movement disorder center was given to the patient but I do not see that she is ever followed up. History of gastritis-erosive -Patient is not on any medication for this -Monitor for any clinical symptoms -Consider PPI -Medications have not yet been verified Degenerative disc disease/scoliosis/chronic pain -Hold home medication for now given somnolence -Restart appropriately mental status improves Suspected COPD -Patient with history of tobacco abuse -Currently vapes -We will supply nicotine patch once patient more awake and can tell us if she is having any signs of withdrawal History of migraines -No current issues Anxiety -Hold clonazepam for now but reinstitute as noted above DVT prophylaxis -Lovenox 40 daily CODE STATUS Full code as verified with the on admission Charges/Coding Visit Charges Inpatient E&M: 09928 Init Hosp L3
--- NOTE | 2022-11-01 11:38 | RAD_ITS ---
PROCEDURE: Fluoroscopic guided Lumbar Puncture. DATE: November 01, 2022. CLINICAL INDICATION: Encephalopathy. PHYSICIAN: Rafael Sherwood M.D. MEDICATIONS: 1% lidocaine administered subcutaneously for local anesthesia. ACCESS SITE: Lower posterior back. NEEDLE: 22-gauge spinal needle. SPECIMEN: Approximately 12 mL clear]CSF fluid. FLUOROSCOPY TIME (if supplied): (3:46) minutes/seconds. 49.01 mGy COMPLICATIONS: None immediate. The risks, benefits, and alternatives to the procedure were explained to the patient. The specific risks of bleeding, infection, and neurovascular injury were detailed and accepted. Witnessed informed consent was obtained. The patient was placed on the fluoroscopic table in the prone position. The level for needle entry was determined and marked. The overlying skin was cleaned and prepped in the usual sterile fashion. 2% lidocaine was administered subcutaneously for local anesthesia. Under fluoroscopic guidance a 22-gauge spinal needle was advanced. The thecal sac was entered at the L3- L4 vertebral level. The inner stylet was removed. There was spontaneous flow of clear CSF fluid. The patient was placed in a reversed Trendelenburg position. Approximately 12 mL of cerebrospinal fluid was collected using gravity. The specimen was collected and submitted to the laboratory for further evaluation. The needle was withdrawn,. Hemostasis was achieved and a sterile dressing placed. The patient tolerated the procedure well without any immediate complications. The patient was placed supine with head elevated and returned to the floor in stable condition. RAD/Dx Lumbar Puncture w/IMG Guide IMPRESSION: Successful fluoroscopic-guided lumbar puncture. Electronically Signed: Rafael Sherwood MD at 15:02 EDT ,
[2022-11-01] MEDS: Dextrose 5%/0.9% NaCl 1,000 ML 75 ML IV (12:38)
[2022-11-01] MEDS: Lidocaine 2% (5ml sdv) 5 ML VIAL.MPF INFILT (14:11)
--- NOTE | 2022-11-01 14:25 | CYSPIN_PTH ---
PATIENT: CAROL ZARAGOZA LOC: [facility] U#:[id number] AGE/SX: 72/F ROOM: [facility] RE11/01/[address]: Dr. Jesse Camejo MD : 1950 BED: 1 DIS: 11/04/2022 SPEC #: [id number] RECD: 11/02/22 08:01 STATUS: CHERYL PALMAAyan #: [id number] DRAKE: 11/01/22 14:[address]: Helena Ann DEPT: CYTOLOGY RECD BY: Birgit Guevara ENTERED: 11/02/22 08:01 SP TYPE: CYSPIN FL OTHR DR: DO Dr. Jesse Grande MD Dr. Tai Chi Kwok, MD Tissues: Cerebrospinal Fluid Procedures: Pap Stain (control) Special Stain Group II Cytospin Fluid Comments: @ Ordering doctor for PAPS edited from to @ by MARCIN at 11/02/22 08 @ Ordering doctor for SSII edited from to @ by MARCIN at 11/02/22816 @ Ordering doctor for CYSPIN edited from to @ by MARCIN at 11/02/22 08 @ Submitting doctor edited from to @ by MARCIN at 11/02/22816 HEADER OPERATION: Lumbar puncture PRE-OP DIAGNOSIS: Encephalopathy TISSUE SUBMITTED: Cerebrospinal fluid for cytology DIAGNOSIS CYTOLOGY Cerebrospinal fluid for cytology (cytospin): Virtually acellular specimen. See comment. AM:choco 11/02/2022 COMMENT Occasional red blood cells are present. Clinical correlation is suggested. CYTOLOGY STUDY Slides are reviewed. CYTOLOGY GROSS Received is 2.5 ml of clear colorless fluid labeled with the patient's name and and designated per the requisition as CSF. Submitted for cytology preparation. / choco 11/02/2022 TC:5 CPT: 41978
[2022-11-01 15:11] LABS: Cytology, Body Fluid / CSF SEE PATHOLOGY REPORT
[2022-11-01 15:55] LABS: Glucose Spinal Fluid 62 mg/dL (40-75)
[2022-11-01 16:15] LABS: Body Fluid Polynuclear WBC # 0.001 10^3/uL
[2022-11-01 16:34] LABS: Appearance CSF (character) CLEAR (Clear); Auto B Fluid Analyzer BKGD Ct COUNTS W/IN LIMITS (W/IN LIMITS); CSF Color COLORLESS (Colorless); Tested Tube # 3
[2022-11-01 16:35] LABS: RBC Count, Spinal Fluid 49 /mm-3 (None seen); White Count, CSF 0 /mm-3 (0 - 5)
[2022-11-01 16:37] LABS: Body Fluid QC Type(s) BF2Q
[2022-11-01] MEDS: Lidocaine 2% (5ml sdv) 5 ML VIAL.MPF (17:07)
[2022-11-02] MEDS: Dextrose 5%/0.9% NaCl 1,000 ML 75 ML IV ×2 (03:36→16:20)
[2022-11-02 03:42] VITALS: BP 117/68; PULSE 73; RESP 18; TEMP 36.7; O2SAT 97
[2022-11-02 06:06] LABS: Absolute Lymphocyte Count 1.34 X10^3/uL (0.83-4.51); Absolute Neutrophil Count 1.8 X10^3/uL (2.0-7.7); Basophil# 0.05 X10^3/uL; Basophil% 1.3 % (0-1); Eosinophil# 0.19 X10^3/uL; Eosinophils% 4.9 % (0-5); Hematocrit 35.7 % (37-47); Hemoglobin 11.2 g/dL (12.0-15.0); Lymphocyte # 1.34 X10^3/ul (0.83-4.51); Lymphocyte % 34.9 % (19-41); Mean Corp Hgb Conc 31.4 g/dL (32-36); Mean Corpuscular Hgb 30.9 pg (27.0-32.0); Mean Corpuscular Volume 98.6 fL (81-99); Mean Platelet Vol. 9.4 fl (6.2-12.0); Monocyte# 0.41 X10^3/uL; Monocyte% 10.7 % (0-10); NRBC Flagged by Analyzer 0 % (0-5); Neutrophil # 1.84 X10^3/uL (2.7-7.7); Neutrophil % 47.9 % (47-70); Platelet Count 382 K/mm3 (150-450); RBC Distribution Width SD 51.4 fl (35.1-43.9); Red Blood Count 3.62 M/mm3 (4.2-5.4); White Blood Count 3.8 K/mm3 (4.4-11.0)
[2022-11-02 07:04] VITALS: O2SAT 95
[2022-11-02 07:57] LABS: Anion Gap 5 (5-15); BUN 6 mg/dL (7-18); BUN/Creat Ratio 8.5 RATIO (10-20); Calcium,Total 8.4 mg/dL (8.5-10.1); Chloride 119 mmol/L (98-107); EST Glomerular Filtration Rate 87 mL/min (>60); Est Glom Filt Rate - Afr Amer 105 mL/min (>60); Estimated Creatinine Clearance 39.02 ml/min; Glucose 106 mg/dL (74-106); Magnesium 2.2 mg/dL (1.6-2.6); Phosphorus 2.7 mg/dL (2.5-4.9); Potassium 3.6 mmol/L (3.5-5.1); Sodium Level 147 mmol/L (136-145)
[2022-11-02 09:30] VITALS: BP 124/68; PULSE 83; RESP 18; TEMP 36.9; O2SAT 97
--- NOTE | 2022-11-02 09:42 | ST.MBS ---
Modified Barium Swallow Patient Information Study Date: 11/02/22 Study Time: 09:00 Direct Billable Minutes: 210 Total Minutes procedure & reportin Diagnosis: R13.12 - Moderate to Severe Oropharyngeal Dysphagia Referring Physician: Helena Ann Reason for Referral: Objectively assess swallow function, risk for aspiration and to determine recommendations for LRD and compensatory strategies to improve safety of swallow. Medical History: Jacque David is a 72 F who presented to the ED [facility] w/ 11/01/22 w/ chief complaint of mental status changes, generalized weakness, and falls. Her reported that over the last 2 months and probably a little bit longer she has had progressive neurological changes and worsening weakness with falls. Her chemistry panel was unrevealing and had no significant abnormalities. Her UA is unremarkable for any signs of infection. CT of the brain shows chronic involutional changes. CT of the cervical spine shows spinal stenosis at C6-C7 with central canal osteophyte compressing on the cord. Chest x-ray is bibasilar infiltrates. Speech therapy was consulted and patient is NPO until ST evaluation is completed. Patient participated in Bedside Swallow Evaluation. Patient showing overt s/s of aspiration throughout trials w/ fine crackles in the RLL and LLL after PO intake. PHYSICIAN INTERVENTIONAL CARDIOLOGIST recommended continued diet of NPO w/ [place] Free Water Protocol until instrumental swallow exam could be completed. Noted that patient participated in MBSS in July 2022 w/ dx of moderate-severe oropharyngeal dysphagia and esophageal dysphagia. Dr. Zarate (GI) preformed EGD following MBSS w/ esophageal dilation. Patient did not follow up w/ OP ST, Dr. Zarate or neurology as recommended. Current Diet Ordered: NPO, [place] Free Water Protocol Dentition: Upper Dentures (ill fitting, dentures are NOT the patient's per ) Mental Status: Impaired Respiratory Status: Oxygenating on Room Air Penetration-Aspiration Scale Penetration-Aspiration Scale: OBJECTIVE ASSESSMENT OF SWALLOW FUNCTION (QUANTITATIVE ? PER TRIAL): PENETRATION / ASPIRATION SCALE (HERNANDEZ): 1 = does not enter airway 2 = enters airway/above vocal folds/ejected 3 = enters airway/above vocal folds/not ejected 4 = enters airway/contacts vocal folds/ejected 5 = enters airway/contacts vocal folds/not ejected 6 = enters airway/below vocal folds/ejected 7 = enters airway/below vocal folds/not ejected despite effort 8 = enters airway/below vocal folds/no effort VIDEOFLOROSCOPIC SCALE SCORE (HERNANDEZ): Grade I = aspiration of material that has penetrated into the laryngeal vestibule, intact cough reflex Grade II = aspiration < 10 % of the bolus, intact cough reflex Grade III = aspiration of < 10 % of the bolus, reduced cough reflex or aspiration of > 10 % of the bolus, intact cough reflex Grade IV = aspiration of > 10 % of the bolus, reduced cough reflex Penetration-Aspiration Scale Score Thin Liquid via teaspoon: Result: 5= enters airways/contacts vocal folds/not ejected Comment: * unable to complete PAS score as patient leaned forward out of view. PHYSICIAN INTERVENTIONAL CARDIOLOGIST observed penetration to the vocal cords and HIGHLY suspects aspiration d/t patient's immediate reflexive cough. Thin Liquid via teaspoon Trial 2: Result: 2= enter airway/above vocal folds/ejected Thin Liquid via small single sip from cup: Result: 2= enter airway/above vocal folds/ejected Thin Liquid via small single sip from cup Trial 2: Result: 3= enters airways/above vocal folds/not ejected Comment: cannot rule out aspiration d/t body's habitus during study Thin Liquid via small single sip from cup Trial 3: Result: 8= enters airway/below vocal folds/no effort Thin Liquid via small single sip from straw: Result: 5= enters airways/contacts vocal folds/not ejected Kiefer Thick Liquid via small single sip from cup: Result: 3= enters airways/above vocal folds/not ejected Kiefer Thick Liquid via small single sip from cup Trial 2: Result: 5= enters airways/contacts vocal folds/not ejected Honey Thick Liquid via small single sip from cup: Result: 3= enters airways/above vocal folds/not ejected Pudding: Result: 2= enter airway/above vocal folds/ejected Thin Liquid via small single sip from cup Trial 4: Result: 8= enters airway/below vocal folds/no effort Barium Tablet: Result: 1= does not enter airway Comment: Patient had difficulty w/ AP transit of barium tablet, required several sips of water to clear. PHYSICIAN INTERVENTIONAL CARDIOLOGIST HIGHLY suspects aspiration d/t patient's immediate reflexive cough followed by SOB. Thin Liquid via sequential sips from cup: Result: 7= enters airways/below vocal folds/not ejected despite effort Oral Phase Labial Seal: Escape beyond interlabial space; no extension beyond osiel border Tongue Control During Bolus Hold: Posterior escape of greater than half of bolus Bolus Preparation/Mastication: Disorganized chewing/mashing with solid pieces of bolus unchewed Bolus Transport/Lingual Motion: Repetitive/disorganized tongue motion Oral Residue: Residue collection on oral structures Pharyngeal Phase Initiation of Pharyngeal Swallow: Bolus head in pyriforms Soft Palate Elevation: No bolus between soft palate and pharyngeal wall Laryngeal Elevation: Partial superior movement thyroid cart/partial apprx aryt-epig petiole Anterior Hyoid Excursion: Partial anterior movement Epiglottic Movement: Partial inversion Laryngeal Vestibule Closure at Height of Swallow: Incomplete; narrow column of air/contrast in laryngeal vestibule Pharyngeal Stripping Wave: Present - diminished Pharyngoesophageal Segment Opening: Parital distension and partial duration; parital obstruction of flow Tongue Base Retraction: Wide column of contrast between tongue base & post. pharyngeal wall Pharyngeal Residue: Collection of residue within or on pharyngeal structures Esophageal Phase Esophageal Clearance: Esophageal retention Treatment Strategies Effects of treatment strategies attemped:: double swallow = sometimes effective liquid wash = sometimes effective Diagnosis/Impression Diagnosis: Mod-severe oropharyngeal dysphagia R13.12 Impression: Patient present w/ mod-severe oropharyngeal dysphagia. Oral phase primarily marked by... - decreased bolus control w/ >1/2 of the bolus spilling posteriorly to the pyriforms prior to the swallow onset observed. - lingual pumping w/ delayed AP transport. - min-mod oral residue post deglutition which patient independently cleared w/ multiple swallows. - DID NOT assess regular consistencies (Leigh Ann Doone cookie) as patient has demonstrated significant mastication insufficiency during July 2022 MBSS and during Bedside Swallow Evaluation yesterday (11/01/22). Patient has ill fitting upper dentures. Pharyngeal phase primarily marked by... - decreased airway closure during the swallow due to decreased laryngeal elevation and partial anterior hyoid excursion. - penetration into the airway that was NOT ejected w/ thin via cup, nectar thick liquid via cup and honey thick liquid via cup. Penetration to the vocal cords that was NOT ejected observed w/ thin via tsp, thin via straw and NTL. Patient is at HIGH risk for post prandial aspiration as several consistencies contacted the vocal cords and remained in airway that were not ejected. - aspiration resulting in reflexive cough observed w/ sequential sips of thin via cup. PHYSICIAN INTERVENTIONAL CARDIOLOGIST highly suspects aspiration w/ thin via tsp and sequential sips of thin liquid via cup following barium tablet trial, however unable to definitely report this. - SILENT aspiration observed w/ thin via cup in 2/4 (50%) trials. - moderately decreased TB retraction and decreased pharyngeal stripping wave resulting in moderate pharyngeal residues after the swallow in the vallecula and pyriforms. Patient had pharyngeal residue in the pyriforms following 2 trials of thin liquid via tsp. Increased pharyngeal residues in the vallecula w/ thicker viscosities. 2-3 additional dry swallows and liquid wash somewhat cleared residue. Patient is at HIGH risk for post prandial aspiration (which silent aspiration of residues was directly observed in July 2022 [facility]) d/t residues spilling into the airway. Esophageal phase primarily marked by... - significant improvement in esophageal clearance following EGD w/ esophageal dilation reported. - timely clearance w/ thin liquids. - mild retention in the upper esophagus observed w/ pudding. Patient would benefit from neurology consult. Recommendations Diet: NPO Comment: PHYSICIAN INTERVENTIONAL CARDIOLOGIST communicated w/ hospitalist on ST recommendations for patient to remain NPO. PHYSICIAN INTERVENTIONAL CARDIOLOGIST is recommending alternative means of primary nutrition and hydration d/t significance of penetration to the vocal cords and aspiration - some of which was silent in nature AND pharyngeal residues remaining in the vallecula and pyriforms after the swallow. Patient would be appropriate for [place] Free Water Protocol. Medications whole w/ moist puree (applesauce, yogurt). Compensatory Strategies: No Straws Recommend Repeat Modified Barium Swallow: TBD Need for Skilled Speech Therapy Services: Yes Comment: Patient would benefit from skilled ST services to address mod-severe deficits in oropharyngeal swallow function. Will recommended patient for oropharyngeal strengthening to improve lingual control/coordination, laryngeal elevation/excursion, TB retraction, and duration of UES opening (lingual resistance, CTAR, Jamee, Shaker, effortful). Patient and would benefit from thorough diet recommendations and strategies. Education Completed: 1. Described result of evaluation., 2. Pt understands evaluation & agrees with goals and treatment plan. and 4. Family/caregivers understand evaluation & agree w/ goals & tx plan. Status Active ST Patient: Active Contact Information [facility] Speech Therapy:: Melinda Roa M.A. [facility]-PHYSICIAN INTERVENTIONAL CARDIOLOGIST Speech-Language Pathologist [facility] [address] [place] [address] [email or web address] [phone]
[2022-11-02] MEDS: Enoxaparin 40 MG/0.4 ML Syringe SC (10:32)
--- NOTE | 2022-11-02 12:40 | PN.HOSP_ITS ---
Subjective Subjective Doing well, no issues overnight Objective Data Objective Data Vital Signs: Vital Signs Temp Pulse Resp BP Pulse Ox O2 Del Method 98.4 F 83 18 124/68 H 97 Room Air 11/02/22 09:30 11/02/22 09:30 11/02/22 09:30 11/02/22 09:30 11/02/22 09:30 11/02/22 09:30 Oxygen Delivery Method Room Air Weight: 107 lb 2.314 oz Body Mass Index (BMI) 19.7 Intake & Output: Intake and Output for Last 24 Hours 11/01/22 11/02/22 11/03/22 03:59 03:59 03:59 Intake Total 1507.50 / 1507.50 Output Total 0 / 0 Balance 1507.50 / 1507.50 Medical Nutrition Assessment Dietitian: Malnutrition Criteria Met Start: 11/01/22 18:21 Freq: Status: Active Protocol: Document 11/01/22 18:21 RMA (Rec: 11/01/22 18:21 RMA [id number]) Nutrition Malnutrition Evidence of Malnutrition Exists Yes Malnutrition (severe): Chronic Evidenced By Suboptimal Energy Intake ( Severe),Weight Loss (Severe) Intake Problem Inadequate Oral Intake Etiology related to altered mental status Signs/Symptoms as evidenced by NPO Status Active Problem Clinical Problem Chronic Disease or Condition Related Malnutrition Etiology Severe protein-calorie malnutrition in the context of chronic disease related to inadequate oral intake and difficulty swallowing Signs/Symptoms as evidenced by 12% weight loss x 3 months, currently NPO , BMI 19.0 and PO meeting less than 50% estimated nutrition needs x 3 months Status Active Problem Recommendation Dietitian Recommendations/Changes Recommend diet as tolerated to Regular with consistency/ texture as per [employer]. Consider enteral nutrition support if pt not deemed safe for PO diet. Order ensure plus high protein as tolerated when diet advanced and pt able to take PO. Trend weights closely and optimize nutrition to prevent further energy depleetion. Lab / Micro Data 11/02/22 05:38 11/02/22 05:38 Labs: Laboratory Results - last 24 hr 11/01/22 14:25: Fld Polynuclear WBCs # 0.001, Fld Polynuclear WBCs % 100.0, Fluid Mononuclear WBCs 0.000, Fld Mononuclear WBCs % 0.0, CSF Appearance CLEAR, CSF Color COLORLESS, CSF WBC 0, CSF RBC 49 H, CSF Cell Count Tube # 3, CSF Total Cell Counted TNP, CSF Comment May follow, CSF Glucose 62, CSF Total Protein 43.0 11/02/22 05:38: WBC 3.8 L, RBC 3.62 L, Hgb 11.2 L, Hct 35.7 L, MCV 98.6, MCH 30.9, MCHC 31.4 L, RDW Std Deviation 51.4 H, RDW Coeff of Mehnaz 14.0, Plt Count 382, MPV 9.4, Immature Gran % (Auto) 0.300, Neut % (Auto) 47.9, Lymph % (Auto) 34.9, [place] % (Auto) 10.7 H, Eos % (Auto) 4.9, Baso % (Auto) 1.3 H, Absolute Neuts (auto) 1.8 L, Absolute Lymphs (auto) 1.34, Nucleated RBC % 0, Sodium 147 H , Potassium 3.6, Chloride 119 H, Carbon Dioxide 23.0, Anion Gap 5, BUN 6 L, Creatinine 0.70, Estim Creat Clear Calc 39.02, Est GFR (MDRD) Af Amer 105, Est GFR (MDRD) Non-Af 87, BUN/Creatinine Ratio 8.5 L, Glucose 106, Calcium 8.4 L, Phosphorus 2.7, Magnesium 2.2 Micro: Microbiology 11/01/22 14:25 Csf, Spinal Fluid Gram Stain - Final 11/01/22 14:25 Csf, Spinal Fluid CSF Culture - Preliminary No growth in 24 hours. Final to follow. 11/01/22 08:10 Nasal Secretion SARS-CoV-2 & FLU Antigen (Rapid) - Final Influenzae B Radiography Diagnostic Testing: Radiology Impression Lumbar Puncture Fluoroscopy 11/01/22 11:38 IMPRESSION: Successful fluoroscopic-guided lumbar puncture. Electronically Signed: Rafael Sherwood MD at 15:02 EDT , Physical Exam Narrative General: Alert, Oriented x3, Cooperative, No apparent distress HEENT: Atraumatic, PERRLA, EOMI, Normocephalic Oral: Moist Mucosa Neck: Supple, No JVD Lungs: Diminished, Normal air movement, No rhonchi, No wheeze, No rales Cardiovascular: Regular rate, Regular Rhythm, Normal S1, Normal S2, No murmurs Abdomen: Soft, Non Tender, Non-Distended, No Hepato-splenomegaly Extremities: No edema, Capillary Refill Less than 3 Seconds Skin: No rashes, No breakdown Musculoskeletal: No Tenderness to Palpation of Joints or Extremities Neurological: Exam still difficult due to mental status Psych/Mental Status: Normal Affect, Appropriate Assessment & Plan Assessment/Plan (1) Toxic metabolic encephalopathy: (2) Generalized weakness: (3) Debility: (4) Abnormal TSH: (5) Influenza B: (6) Cervical stenosis of spine: PLAN: Plan Toxic/metabolic encephalopathy -Patient was extremely lethargic at the time of presentation and not able to keep her eyes open -We will hold home Klonopin for now and his mental status improves would recommend continuing Klonopin at half a milligram 3 times daily with a slow wean to get her off of benzodiazepines -Check LP -Fluid studies ordered -Check MRI of the brain with and without contrast if possible -Patient with history of spinal cord stimulator--> better removed but leads still in place will need to check if possible to perform MRI -Ammonia levels unremarkable -Blood gas is unremarkable for any CO2 narcosis -Work-up for infection thus far is unrevealing -It sounds as if the patient may have some baseline dementia but is acutely worse -Toxicology screen performed and only shows ecstasy--> suspect false positive due to drug interaction -Speech therapy consultation for cognitive eval 11/02/2022: LP so far is unremarkable with the studies though viral serologies still pending. MRI is not possible given spinal cord stimulator. She did fail her cookie swallow again so had a 20-minute discussion on advance care planning as she seems reticent to do physical therapy or consider a PEG tube at which point hospice was brought up Severe stenosis at C6-C7 with large posterior osteophyte causing compression of the central canal worse on the left -MRI of possible -May need spine surgery evaluation depending on MRI -Exam was difficult on presentation due to mental status--> will need better neurological eval once patient is more capable of participating Debility/generalized weakness -MRI above if possible as noted for cervical spine work-up -Check MRI of the brain with and without contrast if possible -PT/OT consultation -Per discussion with he is unable to care for at home and she will need placement upon discharge -Social work/case management consultation Abnormal TSH -Free T4 was obtained and found to be normal so suspect euthyroid sick Severe malnutrition -Consult dietitian -P.o. intake has been extremely poor and patient has been losing weight -Add supplements when p.o. intake is possible and appropriate History of dysphagia -Speech therapy consultation -MBS performed on 516 showed moderate to severe oropharyngeal dysphagia and esophageal dysphagia and EGD was performed that showed mild esophagitis and a dilated esophagus -Gastric emptying study was performed as there is a large amount of food in her stomach but I do not see that she ever followed up and had a gastric emptying study -There was concern based on the studies that she could have a neurological disorder and referral to [facility] neurological clinic or movement disorder center was given to the patient but I do not see that she is ever followed up. 11/02/2022: Stressed the need to follow-up with neurology. In the meantime we will discuss possible PEG tube placement History of gastritis-erosive -Patient is not on any medication for this -Monitor for any clinical symptoms -Consider PPI -Medications have not yet been verified Degenerative disc disease/scoliosis/chronic pain -Hold home medication for now given somnolence -Restart appropriately mental status improves Suspected COPD -Patient with history of tobacco abuse -Currently vapes -We will supply nicotine patch once patient more awake and can tell us if she is having any signs of withdrawal History of migraines -No current issues Anxiety -Hold clonazepam for now but reinstitute as noted above DVT prophylaxis -Lovenox 40 daily Charges/Coding Visit Charges Inpatient E&M: 32460 Subs Hosp L2 Procedures Hospitalists Procedures: 77829 Advncd Care Plan 30 Min
[2022-11-02 13:01] LABS: Pathologist Review Reviewed
[2022-11-02 15:30] VITALS: BP 143/74; PULSE 84; RESP 16; TEMP 36.8; O2SAT 98
[2022-11-02] MEDS: Acetaminophen 325 MG Tablet 650 MG PO (16:10)
--- NOTE | 2022-11-02 16:15 | CASEMGMT ---
RN CM chart review: Patient was admitted 10/13-10/14/22 for abdominal ileus. See RN CM assessment from 10/14/22. Patient was discharged to home with family support and follow-up plans in place. Patient returned to [facility] on 11/01/22 for confusion and inability to walk. Patient was admitted for toxic vs metabolic encephalopathy and Klonopin placed on hold till mental status cleared. states he is unable to care for patient at home. Speech therapy recommending peg tube due. Hospitalist discussed with family and they are reviewing recommendations for pegtube and possible SNF placement. CM will continue to follow this patient and plan for a safe discharge.
--- NOTE | 2022-11-02 17:32 | EX.PCM.CON.G ---
HPI Consult Data Date of Consult: 11/02/22 HPI Narrative Reason for Consultation: Dysphagia HPI Narrative: CAROL ZARAGOZA, is a 72 F who presented to the emergency department at [facility] on 11/01/2022 with her who provides most of her history due to her mental status with a chief complaint of mental status changes, generalized weakness, and falls. Her reported that over the last 2 months and probably a little bit longer she has had progressive neurological changes and worsening weakness with falls. She has a history of oropharyngeal dysphagia and esophageal dysphagia: During the admission patient had MBS which showed dysphagia as mentioned above. Patient required EGD shows grade a esophagitis dilatation performed in esophagus. Unclear whether she has gastroparesis. Speech therapy is recommending alternative means of primary nutrition and hydration d/t significance of penetration to the vocal cords and aspiration. She has been losing excessive amount of weight due to the inability to eat and maintain her nutrition. Therefore I was consulted for alternative means of feeding. [facility] Medical History Abnormal CT of the abdomen Allergic rhinitis Ambulates with cane Anxiety Arthritis Asthma Back pain Carpal tunnel syndrome on both sides Chronic cough Chronic lower back pain Closed head injury COVID-19 Debility Depression Depression Dysphagia Edema Former smoker Gastric reflux Gastroparesis Generalized weakness GERD High cholesterol History of stress test HLD (hyperlipidemia) Hypertension Hypoxia Insomnia Irritable bowel syndrome without diarrhea Ischemic bowel disease Low back pain Migraine Migraine headache Movement disorder Pain from implanted hardware Palpitations Palpitations Post-menopausal Scoliosis Scoliosis of lumbar spine Segmental and somatic dysfunction of lumbar region Segmental and somatic dysfunction of pelvic region Segmental dysfunction of thoracic region Shortness of breath on exertion SOB (shortness of breath) Stenosis, cervical spine Uses wheelchair Vitamin D deficiency Walker as ambulation aid Wears dentures Wears glasses Wears hearing aid Home Medications buspirone 7.5 mg tablet 7.5 mg PO BID Check with primary doctor 02/17/20 [History Last Taken 04/26/22] clonazepam 1 mg tablet 1 mg PO TID anxiety 02/17/20 [History Last Taken 04/26/22] gabapentin 400 mg capsule 400 mg PO Q6H Check with primary doctor 04/20/22 [History Last Taken 04/26/22] acetaminophen 325 mg tablet 650 mg (2 x 325 mg) PO Q6H PRN PRN Pain 1-10 Or Fever >100.7 #0 tabs 08/02/22 [Rx Last Taken Unknown] bisacodyl 10 mg rectal suppository 10 mg [place] DAILY PRN Constipation 30 days #0 ea 10/14/22 [Rx Last Taken Unknown] ciprofloxacin HCl 500 mg tablet 500 mg PO BID 5 days #10 tabs 10/14/22 [Rx Last Taken Unknown] metronidazole 500 mg tablet 500 mg PO Q8H 5 days #15 tabs 10/14/22 [Rx Last Taken Unknown] naproxen 500 mg tablet 500 mg PO Q12H PRN arthritis pain 30 days #0 tabs 10/14/22 [Rx Last Taken Unknown] polyethylene glycol 3350 17 gram/dose oral powder (Miralax) 17 g PO DAILY #238 grams 10/14/22 [Rx Last Taken Unknown] sennosides 8.6 mg-docusate sodium 50 mg tablet (Stool Softener-Stimulant Laxative) 2 tab PO BID 30 days #0 tabs 10/14/22 [Rx Last Taken Unknown] Allergy/AdvReac Type Severity Reaction Status Date / Time hydrocodone [From Vicodin] Allergy NERVOUS, Verified 11/01/22 07:46 JITTERY Penicillins Allergy Rash Verified 11/01/22 07:46 Family History Other CVA (cerebral vascular accident) Cancer Hypertension Surgical History History of 2 sections History of cardiac catheterization History of lumbar laminectomy Hx of dilation and curettage Hx of surgical procedure Social History (Updated 11/01/22 @ 11:[address] Helena Ann DO) household members: spouse housing: house number of children: 2 Smoking Status: Current every day smoker tobacco type: e-cigarettes alcohol intake: never substance use type: does not use what type of physical activity do you participate in: none additional social history: Currently ambulating with a cane ROS Review of Systems ROS Unobtainable: due to mental status Physical Exam Narrative General: Alert, Oriented x3, Cooperative, No apparent distress HEENT: Atraumatic, PERRLA, EOMI, Normocephalic Oral: Moist Mucosa Neck: Supple, No JVD Lungs: Diminished, Normal air movement, No rhonchi, No wheeze, No rales Cardiovascular: Regular rate, Regular Rhythm, Normal S1, Normal S2, No murmurs Abdomen: Soft, Non Tender, Non-Distended, No Hepato-splenomegaly Extremities: No edema, Capillary Refill Less than 3 Seconds Skin: No rashes, No breakdown Musculoskeletal: No Tenderness to Palpation of Joints or Extremities Neurological: Exam still difficult due to mental status Psych/Mental Status: Normal Affect, Appropriate Medical Records Data Medical Nutrition Assessment Dietitian: Malnutrition Criteria Met Start: 11/01/22 18:21 Freq: Status: Active Protocol: Document 11/01/22 18:21 RMA (Rec: 11/01/22 18:21 RMA [id number]) Nutrition Malnutrition Evidence of Malnutrition Exists Yes Malnutrition (severe): Chronic Evidenced By Suboptimal Energy Intake ( Severe),Weight Loss (Severe) Intake Problem Inadequate Oral Intake Etiology related to altered mental status Signs/Symptoms as evidenced by NPO Status Active Problem Clinical Problem Chronic Disease or Condition Related Malnutrition Etiology Severe protein-calorie malnutrition in the context of chronic disease related to inadequate oral intake and difficulty swallowing Signs/Symptoms as evidenced by 12% weight loss x 3 months, currently NPO , BMI 19.0 and PO meeting less than 50% estimated nutrition needs x 3 months Status Active Problem Recommendation Dietitian Recommendations/Changes Recommend diet as tolerated to Regular with consistency/ texture as per FLATCAR WHACKER. Consider enteral nutrition support if pt not deemed safe for PO diet. Order ensure plus high protein as tolerated when diet advanced and pt able to take PO. Trend weights closely and optimize nutrition to prevent further energy depleetion. Lab / Micro Data 11/02/22 05:38 11/02/22 05:38 Labs: Laboratory Results - last 24 hr 11/01/22 14:25: CSF Comment Reviewed, Miscellaneous Cytology SEE PATHOLOGY REPORT 11/02/22 05:38: WBC 3.8 L, RBC 3.62 L, Hgb 11.2 L, Hct 35.7 L, MCV 98.6, MCH 30.9, MCHC 31.4 L, RDW Std Deviation 51.4 H, RDW Coeff of Mehnaz 14.0, Plt Count 382, MPV 9.4, Immature Gran % (Auto) 0.300, Neut % (Auto) 47.9, Lymph % (Auto) 34.9, Bladen % (Auto) 10.7 H, Eos % (Auto) 4.9, Baso % (Auto) 1.3 H, Absolute Neuts (auto) 1.8 L, Absolute Lymphs (auto) 1.34, Nucleated RBC % 0, Sodium 147 H, Potassium 3.6, Chloride 119 H, Carbon Dioxide 23.0, Anion Gap 5, BUN 6 L, Creatinine 0.70, Estim Creat Clear Calc 39.02, Est GFR (MDRD) Af Amer 105, Est GFR (MDRD) Non-Af 87, BUN/Creatinine Ratio 8.5 L, Glucose 106, Calcium 8.4 L, Phosphorus 2.7, Magnesium 2.2 Micro: Microbiology 11/01/22 14:25 Csf, Spinal Fluid Gram Stain - Final 11/01/22 14:25 Csf, Spinal Fluid CSF Culture - Preliminary No growth in 24 hours. Final to follow. 11/01/22 08:10 Nasal Secretion SARS-CoV-2 & FLU Antigen (Rapid) - Final Influenzae B Assessment & Plan Assessment/Plan (1) Dysphagia: QUALIFIERS: Dysphagia type: oropharyngeal phase Qualified Code(s): R13.12 - Dysphagia, oropharyngeal phase PLAN: The Differential diagnosis for her orophageal and esophageal dysphagia in the setting of weight loss is esophageal malignancy, myasthenia gravis, CVA, achalasia and COPD. She will undergo an upper endoscopy to evaluate the upper esophagus. NPO past midnight. She will also undergo PEG placement due to severe oropharyngeal dysphagia. She was explained alternatives, risk, benefits include not withstanding bleeding, infection, sepsis, perforation, need for return to . Show an ASA of 3. Charges/Coding Visit Charges Inpatient E&M: 40694 Init Hosp L3
[2022-11-02 21:30] VITALS: BP 133/70; PULSE 81; RESP 18; TEMP 36.3; O2SAT 98
--- NOTE | 2022-11-02 21:50 | NURSING ---
This RN informed and educated pt about her EGD for tomorrow. Pt expressed, however, that she will not be doing EGD and will not get peg tube at all. She states that she had already discussed this decision w/ her and son. Pt states that will be back in the AM to visit her and to talk to the MD. Pt further educated about NPO status and why she is restricted to have oral intake at this time. Pt comfortably resting in bed watching TV. No further concerns at this time.
[2022-11-02 22:05] VITALS: BMI 18.9
[2022-11-03] VITALS (11 sets, daily range): BP systolic 109–158; BP diastolic 69–103; PULSE 80–97; RESP 16–18; TEMP 36.2–37.4; O2SAT 94–97; BMI 18.9
[2022-11-03] MEDS: Dextrose 5%/0.9% NaCl 1,000 ML 75 ML IV ×2 (03:17→16:49)
[2022-11-03 05:26] LABS: Absolute Lymphocyte Count 1.21 X10^3/uL (0.83-4.51); Absolute Neutrophil Count 1.9 X10^3/uL (2.0-7.7); Basophil# 0.05 X10^3/uL; Basophil% 1.3 % (0-1); Eosinophil# 0.18 X10^3/uL; Eosinophils% 4.8 % (0-5); Hematocrit 36.1 % (37-47); Hemoglobin 11.5 g/dL (12.0-15.0); Lymphocyte # 1.21 X10^3/ul (0.83-4.51); Mean Corp Hgb Conc 31.9 g/dL (32-36); Mean Corpuscular Hgb 31.4 pg (27.0-32.0); Mean Corpuscular Volume 98.6 fL (81-99); Mean Platelet Vol. 9.4 fl (6.2-12.0); Monocyte# 0.43 X10^3/uL; Monocyte% 11.4 % (0-10); NRBC Flagged by Analyzer 0 % (0-5); Neutrophil % 50.2 % (47-70); Platelet Count 368 K/mm3 (150-450); RBC Distribution Width CV 13.9 % (11.6-14.6); RBC Distribution Width SD 50.4 fl (35.1-43.9); Red Blood Count 3.66 M/mm3 (4.2-5.4); White Blood Count 3.8 K/mm3 (4.4-11.0)
[2022-11-03 05:48] LABS: International Normalized Ratio 1.1; Prothrombin Time (Protime)PT. 14.7 SECONDS (11.7-14.9)
[2022-11-03 05:49] LABS: Partial Thromboplast Time 41.4 Seconds (24.1-36.2)
[2022-11-03 06:27] LABS: Anion Gap 3 (5-15); BUN 4 mg/dL (7-18); BUN/Creat Ratio 6.3 RATIO (10-20); Calcium,Total 8.3 mg/dL (8.5-10.1); Chloride 118 mmol/L (98-107); Creatinine, Serum 0.64 mg/dL (0.55-1.02); EST Glomerular Filtration Rate 97 mL/min (>60); Est Glom Filt Rate - Afr Amer 117 mL/min (>60); Estimated Creatinine Clearance 39.02 ml/min; Glucose 97 mg/dL (74-106); Potassium 3.5 mmol/L (3.5-5.1); Sodium Level 145 mmol/L (136-145)
--- NOTE | 2022-11-03 08:19 | NURSING ---
Pt noted to be very confused this AM, pt throwing heart monitor and attempting to pull out IV. Attempted to reorient pt and open blinds. Remained confused and refusing shift assessment at this time. Will reattempt at a later time. MD aware and came to assess patient.
--- NOTE | 2022-11-03 10:41 | PN.HOSP_ITS ---
Subjective Subjective A lot more confused today, she took off her application packaging consultant and threw it at the nurses. I had extensive discussion last night about repeat EGD and possible PEG tube with her and her last night and they both seem to be in agreement however this morning she is more belligerent more confused and argumentative. She wants no procedures and she wants to go home when I discussed with her the risks and benefits of both the idea of going home with no intervention or standing getting a work-up she could not adequately describe the conversation to be able to say that she has capacity to make these decisions. Objective Data Objective Data Vital Signs: Vital Signs Temp Pulse Resp BP Pulse Ox O2 Del Method 97.4 F L 85 18 154/78 H 97 Room Air 11/03/22 06:41 11/03/22 06:41 11/03/22 06:41 11/03/22 06:41 11/03/22 06:41 11/03/22 06:41 Oxygen Delivery Method Room Air Weight: 107 lb 2.314 oz Body Mass Index (BMI) 18.9 Intake & Output: Intake and Output for Last 24 Hours 11/02/22 11/03/22 11/04/22 03:59 03:59 03:59 Intake Total 1507.50 / 1507.50 1776.25 / 1776.25 Output Total 0 / 0 Balance 1507.50 / 1507.50 1776.25 / 1776.25 Medical Nutrition Assessment Dietitian: Malnutrition Criteria Met Start: 11/01/22 18:21 Freq: Status: Active Protocol: Document 11/01/22 18:21 RMA (Rec: 11/01/22 18:21 RMA [id number]) Nutrition Malnutrition Evidence of Malnutrition Exists Yes Malnutrition (severe): Chronic Evidenced By Suboptimal Energy Intake ( Severe),Weight Loss (Severe) Intake Problem Inadequate Oral Intake Etiology related to altered mental status Signs/Symptoms as evidenced by NPO Status Active Problem Clinical Problem Chronic Disease or Condition Related Malnutrition Etiology Severe protein-calorie malnutrition in the context of chronic disease related to inadequate oral intake and difficulty swallowing Signs/Symptoms as evidenced by 12% weight loss x 3 months, currently NPO , BMI 19.0 and PO meeting less than 50% estimated nutrition needs x 3 months Status Active Problem Recommendation Dietitian Recommendations/Changes Recommend diet as tolerated to Regular with consistency/ texture as per CHILD CARE SUPERVISOR. Consider enteral nutrition support if pt not deemed safe for PO diet. Order ensure plus high protein as tolerated when diet advanced and pt able to take PO. Trend weights closely and optimize nutrition to prevent further energy depleetion. Lab / Micro Data 11/03/22 05:00 11/03/22 05:00 Labs: Laboratory Results - last 24 hr 11/01/22 14:25: CSF Comment Reviewed, Miscellaneous Cytology SEE PATHOLOGY REPORT 11/03/22 05:00: WBC 3.8 L, RBC 3.66 L, Hgb 11.5 L, Hct 36.1 L, MCV 98.6, MCH 31.4, MCHC 31.9 L, RDW Std Deviation 50.4 H, RDW Coeff of Mehnaz 13.9, Plt Count 368, MPV 9.4, Immature Gran % (Auto) 0.300, Neut % (Auto) 50.2, Lymph % (Auto) 32.0, Steele % (Auto) 11.4 H, Eos % (Auto) 4.8, Baso % (Auto) 1.3 H, Absolute Neuts (auto) 1.9 L, Absolute Lymphs (auto) 1.21, Nucleated RBC % 0, PT 14.7, INR 1.1, APTT 41.4 H, Sodium 145, Potassium 3.5, Chloride 118 H, Carbon Dioxide 24.0, Anion Gap 3 L, BUN 4 L, Creatinine 0.64, Estim Creat Clear Calc 39.02, Est GFR (MDRD) Af Amer 117, Est GFR (MDRD) Non-Af 97, BUN/Creatinine Ratio 6.3 L, Glucose 97, Calcium 8.3 L Micro: Microbiology 11/01/22 14:25 Csf, Spinal Fluid Gram Stain - Final 11/01/22 14:25 Csf, Spinal Fluid CSF Culture - Preliminary No growth in 24 hours. Final to follow. 11/01/22 08:10 Nasal Secretion SARS-CoV-2 & FLU Antigen (Rapid) - Final Influenzae B Physical Exam Narrative General: Alert, Oriented x3, not cooperative, agitated HEENT: Atraumatic, PERRLA, EOMI, Normocephalic Oral: Moist Mucosa Neck: Supple, No JVD Lungs: Diminished, Normal air movement, No rhonchi, No wheeze, No rales Cardiovascular: Regular rate, Regular Rhythm, Normal S1, Normal S2, No murmurs Abdomen: Soft, Non Tender, Non-Distended, No Hepato-splenomegaly Extremities: No edema, Capillary Refill Less than 3 Seconds Skin: No rashes, No breakdown Musculoskeletal: No Tenderness to Palpation of Joints or Extremities Neurological: Exam still difficult due to mental status Psych/Mental Status: Agitated Assessment & Plan Assessment/Plan (1) Toxic metabolic encephalopathy: (2) Generalized weakness: (3) Debility: (4) Abnormal TSH: (5) Influenza B: (6) Cervical stenosis of spine: PLAN: Plan Toxic/metabolic encephalopathy -Patient was extremely lethargic at the time of presentation and not able to keep her eyes open -We will hold home Klonopin for now and his mental status improves would recommend continuing Klonopin at half a milligram 3 times daily with a slow wean to get her off of benzodiazepines -Check LP -Fluid studies ordered -Check MRI of the brain with and without contrast if possible -Patient with history of spinal cord stimulator--> better removed but leads still in place will need to check if possible to perform MRI -Ammonia levels unremarkable -Blood gas is unremarkable for any CO2 narcosis -Work-up for infection thus far is unrevealing -It sounds as if the patient may have some baseline dementia but is acutely worse -Toxicology screen performed and only shows ecstasy--> suspect false positive due to drug interaction -Speech therapy consultation for cognitive eval 11/02/2022: LP so far is unremarkable with the studies though viral serologies still pending. MRI is not possible given spinal cord stimulator. She did fail her cookie swallow again so had a 20-minute discussion on advance care planning as she seems reticent to do physical therapy or consider a PEG tube at which point hospice was brought up 11/03/2022: She maintained that she was told that she could have an MRI with the leads we will rediscuss with our MRI department here to investigate further if she can have the MRI with the leads from her stimulator. Severe stenosis at C6-C7 with large posterior osteophyte causing compression of the central canal worse on the left -MRI of possible -May need spine surgery evaluation depending on MRI -Exam was difficult on presentation due to mental status--> will need better neurological eval once patient is more capable of participating Debility/generalized weakness -MRI above if possible as noted for cervical spine work-up -Check MRI of the brain with and without contrast if possible -PT/OT consultation -Per discussion with he is unable to care for at home and she will need placement upon discharge -Social work/case management consultation Abnormal TSH -Free T4 was obtained and found to be normal so suspect euthyroid sick Severe malnutrition -Consult dietitian -P.o. intake has been extremely poor and patient has been losing weight -Add supplements when p.o. intake is possible and appropriate 11/03/2022: Had a discussion about possible PEG tube last night they seem to be on board this morning both she and her refused however he did agree to do an EGD with possible Botox injection after discussing the situation with gastroenterology who felt that might help with her swallowing. History of dysphagia -Speech therapy consultation -MBS performed on 516 showed moderate to severe oropharyngeal dysphagia and esophageal dysphagia and EGD was performed that showed mild esophagitis and a dilated esophagus -Gastric emptying study was performed as there is a large amount of food in her stomach but I do not see that she ever followed up and had a gastric emptying study -There was concern based on the studies that she could have a neurological disorder and referral to [facility] neurological clinic or movement disorder center was given to the patient but I do not see that she is ever followed up. 11/02/2022: Stressed the need to follow-up with neurology. In the meantime we will discuss possible PEG tube placement 11/03/2022: Given her agitation I do not think that a PEG tube today would be a good idea I have concerns that she would remove it prior to maturation of the tract History of gastritis-erosive -Patient is not on any medication for this -Monitor for any clinical symptoms -Consider PPI -Medications have not yet been verified Degenerative disc disease/scoliosis/chronic pain -Hold home medication for now given somnolence -Restart appropriately mental status improves Suspected COPD -Patient with history of tobacco abuse -Currently vapes -We will supply nicotine patch once patient more awake and can tell us if she is having any signs of withdrawal History of migraines -No current issues Anxiety -Hold clonazepam for now but reinstitute as noted above DVT prophylaxis -Lovenox 40 daily Capacity Capacity Assessment Tool Can the patient make a choice & communicate that choice?: Yes Can the patient understand benefits, risks and alternatives?: No Can the patient make a logical, rational choice?: No Is the choice the patient makes consistent w/ their values?: No Is there an impending, emergent risk to the patient?: No Is there a Surrogate Available?: Yes i.e. HCPOA: Yes i.e. close relative (spouse, child, parent, sibling)?: Yes Charges/Coding Visit Charges Inpatient E&M: 04977 Subs Hosp L2
--- NOTE | 2022-11-03 11:48 | CASEMGMT ---
Social Work Dr. Camejo request for a odalys-psych evaluation to be completed. Charge nurse to make referral to Crisis team. This renal social worker met with patient spouse in room, introduced self and renal social worker role. Patient spouse updated on above information. This renal social worker communicating above information to patient spouse, Irving. Irving states understanding. This renal social worker did provide Irving will list of [place] [facility] facility facilities in the event that patient does not qualify for odalys-psych. Irving to look over list and pick top three choices. Social work to continue to follow. PLAN: Odalys-psych pending crisis evaluation. Homero JOHNSON, MARISOL-S
--- NOTE | 2022-11-03 12:00 | EGD_PTH ---
PATIENT: CAROL ZARAGOZA LOC: [facility] U#:[id number] AGE/SX: 72/F ROOM: [facility] RE11/01/[address]: Dr. Jesse Camejo MD : 1950 BED: 1 DIS: 11/04/2022 SPEC #: [id number] RECD: 11/03/22 14:05 STATUS: CHERYL PALMAAyan #: [id number] DRAKE: 11/03/22 12:[address]: Gurmeet Zarate DEPT: SURGICAL PATHOLOGY RECD BY: Birgit Guevara ENTERED: 11/06/22 07:29 SP TYPE: EGD BIOPSY OTHR DR: DO Dr. Jesse Grande MD Dr. Tai Chi Kwok, MD Tissues: Esophagus, NOS Procedures: Surgery Specimen Level IV Comments: @ Ordering doctor for SUIV edited from to @ by MARCIN at 11/06/22 0844 @ Submitting doctor edited from to @ by YOVANYOD at 11/06/22 0844 HEADER OPERATION: EGD with Botox injection and biopsy PRE-OP DIAGNOSIS: Dysphagia TISSUE SUBMITTED: Random esophagus MICROSCOPIC DIAGNOSIS Esophagus, random biopsy: Focal changes of reflux. See comment. AM:choco 11/07/2022 COMMENT Rare eosinophils are seen within the squamous mucosa. Clinical correlation is suggested. MICROSCOPIC DESCRIPTION Slides are reviewed. GROSS DESCRIPTION Received in fixative is one container labeled with the patient's name and designated random esophagus. The specimen consists of multiple irregular fragments of light chan soft tissue that in aggregate measure 1.0 x 0.5 x 0.1 cm. The specimen is totally submitted in one cassette. / AM:choco 11/06/2022 TC:3 CPT: 35551
[2022-11-03] MEDS: Lactated Ringers 1,000 ML 15 ML IV (12:15)
[2022-11-03] MEDS: 0.9% Saline Lock 10 ML Syringe IV (12:37)
[2022-11-03] MEDS: 0.9% Normal Saline (Pres. free 10 ML Vial (12:37)
[2022-11-03] MEDS: Botulinum Toxin A 100 Units Vial IJ (12:37)
--- NOTE | 2022-11-03 12:53 | OP.EGD_ITS ---
Patient Name: Jacque David Procedure Date: 11/03/2022 12:14 PM Date of : 1950 Age: 72 Procedure: Upper GI endoscopy Indications: Dysphagia Providers: Gurmeet Zarate DO Medicines: Monitored Anesthesia Care Patient Profile: This is a 72 year old female. Refer to note in patient chart for documentation of history and physical. Patient has symptoms of dysphagia with both liquids and solids. Complications: No immediate complications. Procedure: Pre-Anesthesia Assessment: - Prior to the procedure, a History and Physical was performed, and patient medications and allergies were reviewed. The patient is competent. The risks and benefits of the procedure and the sedation options and risks were discussed with the patient. All questions were answered and informed consent was obtained. Patient identification and proposed procedure were verified by the physician in the pre-procedure area. Mental Status Examination: alert and oriented. Airway Examination: normal oropharyngeal airway and neck mobility. Respiratory Examination: clear to auscultation. CV Examination: normal. Prophylactic Antibiotics: The patient does not require prophylactic antibiotics. Prior Anticoagulants: The patient has taken no 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 or antiplatelet agents except for NSAID medication. ASA Grade Assessment: II - A patient with mild systemic disease. After reviewing the risks and benefits, the patient was deemed in satisfactory condition to undergo the procedure. The anesthesia plan was to use monitored anesthesia care (MAC). Immediately prior to administration of medications, the patient was re-assessed for adequacy to receive sedatives. The heart rate, respiratory rate, oxygen saturations, blood pressure, adequacy of pulmonary ventilation, and response to care were monitored throughout the procedure. The physical status of the patient was re-assessed after the procedure. After obtaining informed consent, the endoscope was passed under direct vision. Throughout the procedure, the patient's blood pressure, pulse, and oxygen saturations were monitored continuously. The gastroscope was introduced through the mouth, and advanced to the second part of duodenum. The upper GI endoscopy was accomplished without difficulty. The patient tolerated the procedure well. Scope In: 12:33:37 PM Scope Out: 12:40:12 PM Total Procedure Duration Time 0 hours 6 minutes 35 seconds Findings: The middle third of the esophagus was significantly tortuous. Biopsies were obtained from the proximal and distal esophagus with cold forceps for histology of suspected eosinophilic esophagitis. Abnormal motility was noted in the upper third of the esophagus. The cricopharyngeus was abnormal. There is a decrease in motility of the esophageal body. The distal esophagus/lower esophageal sphincter is spastic, but gives up passage to the endoscope. Tertiary peristaltic waves are noted. Area was successfully injected with 100 units botulinum toxin. A mild Schatzki ring was found in the lower third of the esophagus. A guidewire was placed and the scope was withdrawn. Dilation was performed with a Savary dilator with no resistance at 45 Fr. The dilation site was examined and showed mild mucosal disruption. A medium-sized hiatal hernia was present. No gross lesions were noted in the entire examined stomach. No gross lesions were noted in the first portion of the duodenum. Impression: - Tortuous esophagus. - Abnormal esophageal motility, suspicious for presbyesophagus. Injected with botulinum toxin. - Mild Schatzki ring. Dilated. - Medium-sized hiatal hernia. - No gross lesions in the entire stomach. - No gross lesions in the first portion of the duodenum. - Biopsies were taken with a cold forceps for evaluation of eosinophilic esophagitis. Recommendation: - Discharge patient to home. - Resume previous diet. - Continue present medications. - Await pathology results. Procedure Code(s): --- Professional --- 31970, Esophagogastroduodenoscopy, flexible, transoral; with insertion of guide wire followed by passage of dilator(s) through esophagus over guide wire 26419, 59, Esophagogastroduodenoscopy, flexible, transoral; with biopsy, single or multiple 27521, 59,51, Esophagogastroduodenoscopy, flexible, transoral; with directed submucosal injection(s), any substance CPT copyright 2021 [employer]. All rights reserved. The codes documented in this report are preliminary and upon invoice coder review may be revised to meet current compliance requirements. Gurmeet Zarate DO 11/03/2022 12:53:24 PM This report has been signed electronically. Number of Addenda: 0 Note Initiated On: 11/03/2022 12:14 PM
--- NOTE | 2022-11-03 12:54 | OP.CCLET_ITS ---
11/03/2022 Harish Luis MD [address] [place] [address] Re : Upper GI endoscopy procedure for Jacque Bairdr Dear Dr. Luis This procedure was performed on Thursday, November 03, 2022. My impressions and recommendations are as follows: Impressions : - Tortuous esophagus. - Abnormal esophageal motility, suspicious for presbyesophagus. Injected with botulinum toxin. - Mild Schatzki ring. Dilated. - Medium-sized hiatal hernia. - No gross lesions in the entire stomach. - No gross lesions in the first portion of the duodenum. - Biopsies were taken with a cold forceps for evaluation of eosinophilic esophagitis. Recommendations : - Discharge patient to home. - Resume previous diet. - Continue present medications. - Await pathology results. My findings are described in the full procedure note, which is enclosed. If I can be of further assistance, please feel free to contact me at . Sincerely, Gurmeet Zarate, 11/03/2022 12:53:24 PM This report has been signed electronically.
--- NOTE | 2022-11-03 18:57 | NURSING ---
Reviewed charting with Adam Carrera RN
[2022-11-04] MEDS: LORazepam 2 MG/ML Syringe 0.5 MG IV (00:57)
[2022-11-04] MEDS: Ketorolac 15 MG/ML Vial IV (03:10)
[2022-11-04 03:15] VITALS: BP 125/74; PULSE 86; RESP 16; TEMP 37.1; O2SAT 96
[2022-11-04] MEDS: Dextrose 5%/0.9% NaCl 1,000 ML 75 ML IV (05:59)
[2022-11-04 06:42] LABS: Anion Gap 4 (5-15); BUN 4 mg/dL (7-18); BUN/Creat Ratio 6.3 RATIO (10-20); Calcium,Total 8.3 mg/dL (8.5-10.1); Chloride 117 mmol/L (98-107); Creatinine, Serum 0.63 mg/dL (0.55-1.02); EST Glomerular Filtration Rate 98 mL/min (>60); Est Glom Filt Rate - Afr Amer 119 mL/min (>60); Estimated Creatinine Clearance 39.02 ml/min; Glucose 105 mg/dL (74-106); Potassium 3.4 mmol/L (3.5-5.1); Sodium Level 145 mmol/L (136-145)
[2022-11-04] MEDS: Acetaminophen 325 MG Tablet 650 MG PO (08:30)
[2022-11-04 09:15] VITALS: BP 137/75; PULSE 88; RESP 14; TEMP 36.8; O2SAT 96
--- NOTE | 2022-11-04 10:45 | NURSING ---
Received call from Crisis. Pt was denied from [facility] d/t not being medically cleared enough for them. Denied from [facility] d/t not being appropriate for their facility. Referrals were sent to [facility] and [facility].
--- NOTE | 2022-11-04 12:17 | CASEMGMT ---
Addendum entered by No Brooke 11/04/22 14:54: Social Work As per physician, does not want to wait for placement and is going to take pt home, so pt is discharged. SW spoke Manuela at crisis, she states pt was not pink slipped. She states that it is likely they will not be able to find a [facility] facility to take pt at this time. She states they will follow up w/pt and at home. SW spoke w/ and pt in room. SW confirmed he wants to take pt home. does not want residential placement, nor does pt. SW offered home health, they also declined this. SW did let them know that [facility] will follow up w/them. They state understanding. No further needs, pt home today. NATALIIA Tafoya Addendum entered by No Brooke 11/04/22 12:40: Social Work SW spoke w/Manuela from Crisis. Pt has been turned down at [facility](they do not think pt is medically ready), [facility](no beds), [facility], [facility], and [facility]. Pt is still pending at [facility] and [facility]. NATALIIA Tafoya Original Note: Social Work SW called [facility] to check on whether or not they have found placement for pt. Message left for deputy felony clerkscore caller to call this SW. As per RN note, they did assess and state pt needed placed. NATALIIA Tafoya
--- NOTE | 2022-11-04 13:53 | DCINST_ITS ---
Discharge Instructions Diet Discharge Diet: - (puree thick) Activity Discharge Activity: Return to Normal Activity Dressing / Incision Call your doctor if you observe: Fever of 101 or Higher, Shortness of breath, Dizziness, Fainting spells, Swelling in the ankles, Chest pain and Increased palpitations (irregular heartbeat) Follow Up Care Test Results: Test results from this visit will be discussed in further detail at your follow- up appointment, if applicable. Discharge Plan Admission Admit Date/Time: 11/01/22 11:07 Attending Provider: Jesse Camejo Primary Care Provider: Harish Luis Chi Consulting Providers: Helena Ann Discharge Orders/Prescriptions Prescriptions: Continued clonazepam 1 MG tablet 1 mg PO TID buspirone 7.5 MG tablet 7.5 mg PO BID gabapentin 400 mg capsule 400 mg PO Q6H acetaminophen 325 mg Tablet 650 mg PO Q6H PRN PRN (Reason: Pain 1-10 Or Fever >100.7) Qty: 0 0RF sennosides-docusate sodium [Stool Softener-Stimulant Laxat] 8.6-50 mg Tablet 2 tab PO BID 30 Days Qty: 0 0RF Rx Instructions: Take as scheduled for 3 days and then as needed for constipation Available pgbi-yrl-hlzjcwk. bisacodyl 10 mg Suppository 10 mg [place] DAILY PRN (Reason: Constipation) 30 Days Qty: 0 0RF Rx Instructions: Mswv-rni-fushdqq. polyethylene glycol 3350 [Miralax] 17 gram/dose powder 17 g PO DAILY Qty: 238 0RF Rx Instructions: available over the counter naproxen 500 mg tablet 500 mg PO Q12H PRN (Reason: arthritis pain) 30 Days Qty: 0 0RF Patient Comments: TAKE 1 TABLET BY MOUTH EVERY 12 HOURS Discontinued ciprofloxacin HCl 500 mg tablet 500 mg PO BID 5 Days Qty: 10 0RF metronidazole 500 mg tablet 500 mg PO Q8H 5 Days Qty: 15 0RF Referrals / Follow Up: Harish Luis Chi, MD [Primary Care Provider] - Within 1 Week Disposition Disposition (needs filled in before D/C Order can be placed): Home, Self Care
--- NOTE | 2022-11-04 15:06 | PCM.DC.SUM ---
Providers Date of Admission: 11/01/22 Primary Care Physician: Dr. Harish Luis MD Consultations 11/02/22 14:53 Consult: Gastroenterology Routine Consulting Provider: [facility] Reason for Consult: eval for peg tube EMERGENT Consult: No MD Notified: Yes Date Notified: 11/02/22 Time Notified: 14:54 Method of Notification: Text Reason For Visit: AMS, INABILITY TO AMBULATE Diagnosis Discharge Diagnosis (1) Toxic metabolic encephalopathy: Status: Acute Code(s): G92.8 - Other toxic encephalopathy (2) Generalized weakness: Status: Acute Code(s): R53.1 - Weakness (3) Debility: Status: Acute Code(s): R53.81 - Other malaise (4) Abnormal TSH: Status: Acute Code(s): R79.89 - Other specified abnormal findings of blood chemistry (5) Influenza B: Status: Acute Code(s): J10.1 - Influenza due to other identified influenza virus with other respiratory manifestations (6) Cervical stenosis of spine: Status: Acute Code(s): M48.02 - Spinal stenosis, cervical region Medications at Discharge Home Medications buspirone 7.5 mg tablet 7.5 mg PO BID Check with primary doctor 02/17/20 clonazepam 1 mg tablet 1 mg PO TID anxiety 02/17/20 gabapentin 400 mg capsule 400 mg PO Q6H Check with primary doctor 04/20/22 acetaminophen 325 mg tablet 650 mg (2 x 325 mg) PO Q6H PRN PRN Pain 1-10 Or Fever >100.7 #0 tabs 08/02/22 bisacodyl 10 mg rectal suppository [address] DAILY PRN Constipation 30 days #0 ea 10/14/22 naproxen 500 mg tablet 500 mg PO Q12H PRN arthritis pain 30 days #0 tabs 10/14/22 polyethylene glycol 3350 17 gram/dose oral powder (Miralax) 17 g PO DAILY #238 grams 10/14/22 sennosides 8.6 mg-docusate sodium 50 mg tablet (Stool Softener-Stimulant Laxative) 2 tab PO BID 30 days #0 tabs 10/14/22 pantoprazole 40 mg tablet,delayed release (Protonix) 40 mg PO DAILY #30 tabs 11/04/22 Hospital Course Operations None Procedures None Summary of Care Provided Minutes Spent on Discharge: 39 Hospital Course: Per HPI: CAROL ZARAGOZA, is a 72 F who presented to the emergency department at [facility] on 11/01/2022 with her who provides most of her history due to her mental status with a chief complaint of mental status changes, generalized weakness, and falls. Her reported that over the last 2 months and probably a little bit longer she has had progressive neurological changes and worsening weakness with falls. He states she is typically ambulating with a cane but is not good enough to support her. Her ambulation and functional status is so poor at this time he is indicating he is unable to take her home. She is having frequent falls. She sleeps downstairs on the couch and he sleeps upstairs in the last 2 nights he has found her laying on the floor after her rolling off the couch. He is having difficulty getting her around and cannot handle her at home. He also notes that her memory has been poor. He gave an example of last evening she was trying to make dinner for him and her son and put a jar of Food in the meal. He states that she has had progressive changes over the past several months but it is been slowly getting worse. She is on clonazepam is unclear how much she takes as she manages her own medications but he does feel she probably takes quite a bit. It is ordered from what I can tell 1 mg 3 times daily however we do not have an updated med reconciliation as of yet. Vital signs on presentation show a temperature of 97.7, heart rate 80, blood pressure 109/74, respiratory rate 12, oxygen saturations 93% on room air. Her CBC was overall unremarkable. She had a mild leukopenia with a white count of 3.6 but a normal hemoglobin and platelet count. Her differential showed basophilia. ABG was unimpressive with normal pH and PCO2 of 41.6 and a PO2 of 86 on room air. Her chemistry panel was unrevealing and had no significant abnormalities. Liver functions are normal. Ammonia level was 11. CK was mildly elevated at 211. Lipase was normal. Her UA is unremarkable for any signs of infection. CT of the brain shows chronic involutional changes. CT of the cervical spine shows spinal stenosis at C6-C7 with central canal osteophyte compressing on the cord. Chest x-ray is unremarkable. EKG was normal sinus rhythm with normal intervals and no ST-T wave changes concerning for acute ischemia. Hospital Course: Toxic/metabolic encephalopathy -Patient was extremely lethargic at the time of presentation and not able to keep her eyes open -We will hold home Klonopin for now and his mental status improves would recommend continuing Klonopin at half a milligram 3 times daily with a slow wean to get her off of benzodiazepines -Check LP -Fluid studies ordered -Check MRI of the brain with and without contrast if possible -Patient with history of spinal cord stimulator--> better removed but leads still in place will need to check if possible to perform MRI -Ammonia levels unremarkable -Blood gas is unremarkable for any CO2 narcosis -Work-up for infection thus far is unrevealing -It sounds as if the patient may have some baseline dementia but is acutely worse -Toxicology screen performed and only shows ecstasy--> suspect false positive due to drug interaction -Speech therapy consultation for cognitive eval 11/02/2022: LP so far is unremarkable with the studies though viral serologies still pending. MRI is not possible given spinal cord stimulator. She did fail her cookie swallow again so had a 20-minute discussion on advance care planning as she seems reticent to do physical therapy or consider a PEG tube at which point hospice was brought up 11/03/2022: She maintained that she was told that she could have an MRI with the leads we will rediscuss with our MRI department here to investigate further if she can have the MRI with the leads from her stimulator. 11/04/2022: Cannot have an MRI and unfortunately this limits work-up for any type of neurological cause. Discussed with the again the need for possible evaluation by neurology, at this time he is saying that he wants to take her home even though he is expressed multiple times that he cannot take care of her I discussed with him the risks and benefits of taking her home he understands the significant risk of aspiration given her swallowing difficulties but he just wants to take her home and bring her back if he has to if something happens. He expressed understanding of the risks and benefits of taking her home versus staying here and he would still like to take her home. Severe stenosis at C6-C7 with large posterior osteophyte causing compression of the central canal worse on the left -MRI of possible -May need spine surgery evaluation depending on MRI -Exam was difficult on presentation due to mental status--> will need better neurological eval once patient is more capable of participating Debility/generalized weakness -MRI above if possible as noted for cervical spine work-up -Check MRI of the brain with and without contrast if possible -PT/OT consultation -Per discussion with he is unable to care for at home and she will need placement upon discharge -Social work/case management consultation Abnormal TSH -Free T4 was obtained and found to be normal so suspect euthyroid sick Severe malnutrition -Consult dietitian -P.o. intake has been extremely poor and patient has been losing weight -Add supplements when p.o. intake is possible and appropriate 11/03/2022: Had a discussion about possible PEG tube last night they seem to be on board this morning both she and her refused however he did agree to do an EGD with possible Botox injection after discussing the situation with gastroenterology who felt that might help with her swallowing. History of dysphagia -Speech therapy consultation -MBS performed on 516 showed moderate to severe oropharyngeal dysphagia and esophageal dysphagia and EGD was performed that showed mild esophagitis and a dilated esophagus -Gastric emptying study was performed as there is a large amount of food in her stomach but I do not see that she ever followed up and had a gastric emptying study -There was concern based on the studies that she could have a neurological disorder and referral to [facility] neurological clinic or movement disorder center was given to the patient but I do not see that she is ever followed up. 11/02/2022: Stressed the need to follow-up with neurology. In the meantime we will discuss possible PEG tube placement 11/03/2022: Given her agitation I do not think that a PEG tube today would be a good idea I have concerns that she would remove it prior to maturation of the tract 11/04/2022: Still significant risk for aspiration though hopefully the botulinum injection during her EGD will help alleviate this risk somewhat. I discussed with the that she is still a significant risk for aspiration he expressed understanding but still wants to take her home. I discussed with him and he understands all the risks and the associated complications and consequences of his decision to take her home. History of gastritis-erosive -Patient is not on any medication for this -Monitor for any clinical symptoms -Consider PPI -Medications have not yet been verified Degenerative disc disease/scoliosis/chronic pain -Hold home medication for now given somnolence -Restart appropriately mental status improves Suspected COPD -Patient with history of tobacco abuse -Currently vapes -We will supply nicotine patch once patient more awake and can tell us if she is having any signs of withdrawal History of migraines -No current issues Anxiety -Hold clonazepam for now but reinstitute as noted above Physical Exam Narrative General: Alert, Oriented x3, cooperative, no acute distress HEENT: Atraumatic, PERRLA, EOMI, Normocephalic Oral: Moist Mucosa Neck: Supple, No JVD Lungs: Diminished, Normal air movement, No rhonchi, No wheeze, No rales Cardiovascular: Regular rate, Regular Rhythm, Normal S1, Normal S2, No murmurs Abdomen: Soft, Non Tender, Non-Distended, No Hepato-splenomegaly Extremities: No edema, Capillary Refill Less than 3 Seconds Skin: No rashes, No breakdown Musculoskeletal: No Tenderness to Palpation of Joints or Extremities Neurological: Moves all extremities, sensation intact Psych/Mental Status: Flat affect Medical Records Data Medical Nutrition Assessment Dietitian: Malnutrition Criteria Met Start: 11/01/22 18:21 Freq: Status: Active Protocol: Document 11/03/22 12:55 [facility] (Rec: 11/03/22 12:55 [facility] [id number]) Nutrition Malnutrition Evidence of Malnutrition Exists Yes Malnutrition (severe): Chronic Evidenced By Suboptimal Energy Intake ( Severe),Weight Loss (Severe) Intake Problem Inadequate Oral Intake Etiology related to altered mental status Signs/Symptoms as evidenced by NPO Status Active Problem Clinical Problem Chronic Disease or Condition Related Malnutrition Etiology Severe protein-calorie malnutrition in the context of chronic disease related to inadequate oral intake and difficulty swallowing Signs/Symptoms as evidenced by 12% weight loss x 3 months, currently NPO , BMI 19.0 and PO meeting less than 50% estimated nutrition needs x 3 months Status Active Problem Recommendation Dietitian Recommendations/Changes When medically able, rec diet as tolerated to Regular with consistency/texture as per [employer] . Consider enteral nutrition support if pt not deemed safe for PO diet. If PEG placed, rec Jevity 1.5 at 40 ml/hr w/ 120 ml water flush every 4 hours to provide ~1440 kallie/ 61 gm pro/ 1449 ml free water/ day. Would start tf 20 ml/hr and increase to goal rate after 8-12 hours as pt tolerates. Order ensure plus high protein as tolerated when diet advanced and pt able to take PO. Trend weights closely and optimize nutrition to prevent further energy depleetion. Weight / BMI Weight Weight: 107 lb 2.314 oz Body Mass Index (BMI) 18.9 ABG / Lab / Microbiology Data 11/03/22 05:00 11/04/22 06:06 Laboratory: Laboratory Results - last 24 hr 11/04/22 06:06: Sodium 145, Potassium 3.4 L, Chloride 117 H, Carbon Dioxide 24.0, Anion Gap 4 L, BUN 4 L, Creatinine 0.63, Estim Creat Clear Calc 39.02, Est GFR (MDRD) Af Amer 119, Est GFR (MDRD) Non-Af 98, BUN/Creatinine Ratio 6.3 L, Glucose 105, Calcium 8.3 L Microbiology: Microbiology 11/01/22 14:25 Csf, Spinal Fluid Gram Stain - Final 11/01/22 14:25 Csf, Spinal Fluid CSF Culture - Final No growth in 72 hours. 11/01/22 08:10 Nasal Secretion SARS-CoV-2 & FLU Antigen (Rapid) - Final Influenzae B D/C Instructions Discharge Diet: - (puree thick) Call your doctor if you observe: Fever of 101 or Higher, Shortness of breath, Dizziness, Fainting spells, Swelling in the ankles, Chest pain and Increased palpitations (irregular heartbeat) Meaningful Use Info Meaningful Use Diagnoses (Choose all that apply): None applicable Discharge Plan Admission Admit Date/Time: 11/01/22 11:07 Attending Provider: Jesse Camejo Primary Care Provider: Harish Luis Chi Consulting Providers: Helena Ann Discharge Orders/Prescriptions Prescriptions: New pantoprazole [Protonix] 40 mg tablet,delayed release (DR/EC) 40 mg PO DAILY Qty: 30 0RF Continued clonazepam 1 MG tablet 1 mg PO TID buspirone 7.5 MG tablet 7.5 mg PO BID gabapentin 400 mg capsule 400 mg PO Q6H acetaminophen 325 mg Tablet 650 mg PO Q6H PRN PRN (Reason: Pain 1-10 Or Fever >100.7) Qty: 0 0RF sennosides-docusate sodium [Stool Softener-Stimulant Laxat] 8.6-50 mg Tablet 2 tab PO BID 30 Days Qty: 0 0RF Rx Instructions: Take as scheduled for 3 days and then as needed for constipation Available gltz-hyf-jqibddq. bisacodyl 10 mg Suppository [address] DAILY PRN (Reason: Constipation) 30 Days Qty: 0 0RF Rx Instructions: Jkfa-ekl-pmiltln. polyethylene glycol 3350 [Miralax] 17 gram/dose powder 17 g PO DAILY Qty: 238 0RF Rx Instructions: available over the counter naproxen 500 mg tablet 500 mg PO Q12H PRN (Reason: arthritis pain) 30 Days Qty: 0 0RF Patient Comments: TAKE 1 TABLET BY MOUTH EVERY 12 HOURS Discontinued ciprofloxacin HCl 500 mg tablet 500 mg PO BID 5 Days Qty: 10 0RF metronidazole 500 mg tablet 500 mg PO Q8H 5 Days Qty: 15 0RF Referrals / Follow Up: Harish Luis Chi, MD [Primary Care Provider] - Within 1 Week Disposition Disposition (needs filled in before D/C Order can be placed): Home, Self Care Charges/Coding Visit Charges Inpatient E&M: 44910 Disch Hosp >30min
[2022-11-06 11:07] LABS: HSV 1 By PCR Negative (Negative); HSV 2 By PCR Negative (Negative)
== END 2022-11-04 15:43 | disposition home or self-care (01) | DRG 91 ==
LOC: ED 09:26 → PCU 11-02 07:06
PROVIDERS: Anesthesiology; Internal Medicine Gastroenterology; Admitting Provider Internal Medicine; Emergency Provider Emergency Medicine; PCP Family Medicine Geriatric Medicine; Visit Provider Family Medicine
PROC: 0DJ08ZZ Inspection of Upper Intestinal Tract, Via Natural or Artificial Opening Endoscopic (ICD-10-PCS; CPT 43235; principal; 2022-11-03 11:55)
DX: G92.8 Other toxic encephalopathy (principal); E43 Unspecified severe protein-calorie malnutrition; Q76.3 Congenital scoliosis due to congenital bony malformation; Z68.1 Body mass index [BMI] 19.9 or less, adult; K22.2 Esophageal obstruction; R62.7 Adult failure to thrive; F03.90 Unspecified dementia, unspecified severity, without behavioral disturbance, psychotic disturbance, mood disturbance, and anxiety; J44.9 Chronic obstructive pulmonary disease, unspecified; I10 Essential (primary) hypertension; M48.02 Spinal stenosis, cervical region; E78.00 Pure hypercholesterolemia, unspecified; F41.9 Anxiety disorder, unspecified; K44.9 Diaphragmatic hernia without obstruction or gangrene; K22.89 Other specified disease of esophagus; M25.78 Osteophyte, vertebrae; K21.00 Gastro-esophageal reflux disease with esophagitis, without bleeding; F17.290 Nicotine dependence, other tobacco product, uncomplicated; G89.29 Other chronic pain; T42.4X5A Adverse effect of benzodiazepines, initial encounter; E07.81 Sick-euthyroid syndrome; R29.6 Repeated falls; R53.81 Other malaise; R53.1 Weakness; Z79.899 Other long term (current) drug therapy; Z86.16 Personal history of COVID-19; Z87.19 Personal history of other diseases of the digestive system; Z96.82 Presence of neurostimulator
CPT/HCPCS: 36415; 36600; 62328; 70450; 71045; 72125; 74230; 80048; 80053; 80307; 81001; 82077; 82140; 82550; 82803; 82945; 83605; 83690; 83735; 84100; 84157; 84439; 84443; 84484; 85025; 85610; 85730; 87070; 87205; 87428; 87529; 87798; 88108; 88305; 88313; 89050; 89051; 92526; 92610; 92611; 93005; 94668; 97110; 97116; 97162; 97166; 97530; 97535; 97802; 97803; 99285; J7040; J7120; P9612; A4216; J0585; J2405; J3490

== ENCOUNTER → 2023-01-01 | Outpatient (CLI) | payer MEDICARE, SELFPAY ==
[2023-01-01 14:20] LABS: Absolute Lymphocyte Count 1.14 X10^3/uL (0.83-4.51); Absolute Neutrophil Count 4.5 X10^3/uL (2.0-7.7); Basophil# 0.05 X10^3/uL; Basophil% 0.8 % (0-1); Eosinophil# 0.11 X10^3/uL; Eosinophils% 1.7 % (0-5); Hematocrit 38.6 % (37-47); Hemoglobin 12.7 g/dL (12.0-15.0); Lymphocyte # 1.14 X10^3/ul (0.83-4.51); Lymphocyte % 18.1 % (19-41); Mean Corp Hgb Conc 32.9 g/dL (32-36); Mean Corpuscular Hgb 31.8 pg (27.0-32.0); Mean Corpuscular Volume 96.7 fL (81-99); Mean Platelet Vol. 10.2 fl (6.2-12.0); Monocyte# 0.45 X10^3/uL; Monocyte% 7.2 % (0-10); NRBC Flagged by Analyzer 0 % (0-5); Neutrophil # 4.53 X10^3/uL (2.7-7.7); Platelet Count 345 K/mm3 (150-450); RBC Distribution Width CV 13.7 % (11.6-14.6); Red Blood Count 3.99 M/mm3 (4.2-5.4); White Blood Count 6.3 K/mm3 (4.4-11.0)
[2023-01-01 14:35] LABS: Vitamin D,25 Hydroxy 39.2 ng/mL
[2023-01-01 14:42] LABS: ALB/GLOB Ratio 0.8 RATIO (0.9-2.4); AST(SGOT) 12 U/L (15-37); Alanine Aminotransfer ALT/SGPT 14 U/L (13-56); Albumin, Serum 2.8 g/dL (3.2-5.0); Alkaline Phosphatase 106 U/L (45-117); Anion Gap 9 (5-15); BUN 9 mg/dL (7-18); Calcium,Total 8.5 mg/dL (8.5-10.1); Chloride 113 mmol/L (98-107); Creatinine, Serum 1.12 mg/dL (0.55-1.02); EST Glomerular Filtration Rate 51 mL/min (>60); Est Glom Filt Rate - Afr Amer 61 mL/min (>60); Globulin 3.6 g/dL (2.2-4.2); Glucose 124 mg/dL (74-106); Potassium 3.3 mmol/L (3.5-5.1); Protein, Total 6.4 g/dL (6.4-8.2); Sodium Level 144 mmol/L (136-145); Thyroid Stim Hormone (TSH) 0.17 uIU/mL (0.358-3.74)
== END | disposition home or self-care (01) ==
LOC: POLAB3 13:03
PROVIDERS: PCP Family Medicine Geriatric Medicine; Visit Provider Family Medicine Geriatric Medicine
DX: R53.83 Other fatigue (principal); E55.9 Vitamin D deficiency, unspecified
CPT/HCPCS: 36415; 80053; 82306; 84443; 85025

== ENCOUNTER 2023-03-17 13:30 | Emergency (ER) | payer MEDICARE, SELFPAY ==
[2023-03-17 13:31] VITALS: BP 128/73; PULSE 87; RESP 14; TEMP 36.6; O2SAT 97
--- NOTE | 2023-03-17 13:49 | EDS_ITS ---
<Statement entered by Gladys Anne MD - 03/17/23 21:55> I have personally performed a face to face assessment of the patient and have reviewed the AUGUSTINE Note. Patient presents secondary to acute on chronic low back pain. She has a history of scoliosis and multiple prior back procedures. She has had 2 spinal stimulators in the past. She reports increased pain the last several days that radiates down her right leg. She states that she does fall frequently but states she has not had any recent falls. Patient sitting upright in bed no acute distress. Head and neck examination unremarkable. Heart regular rate and rhythm. Lung sounds are clear. Back examination reveals midline scar tissue with scoliosis. No erythema. No focal point tenderness. Neuro exam reveals no significant deficit. L-spine x-rays are obtained. Per my interpretation significant scoliosis and chronic changes. I did do an OAR[facility] report. Patient has had tramadol previously as well as Vicodin in the distant past. She does not get controlled substances frequently. We will treat her with tramadol as well as some prednisone to help with the nerve irritation down the leg. She is to follow-up with her doctor on Sunday, after the holiday weekend. Return instructions given. HPI History of Present Illness Chief Complaint: Back Narrative Narrative: 72-year-old female states she has had low back issues for 20 years. About 20 years ago she had a lumbar laminectomy. She has had 2 spinal stimulators that were removed because it did not help. She still has leads in place. Over the last week she has had increased low back pain that radiates down the entire righ t leg. She has had similar distribution of pain before. She has no recent fall or injury. She has no weakness or paresthesias. No saddle anesthesia or bladder bowel incontinence. No fever. She takes Aleve. She states she has been to multiple pain management doctors without improvement. [facility] Medical History Abnormal CT of the abdomen Allergic rhinitis Ambulates with cane Anxiety Arthritis Asthma Back pain Carpal tunnel syndrome on both sides Chronic cough Chronic lower back pain Closed head injury COVID-19 Debility Depression Depression Dysphagia Edema Former smoker Gastric reflux Gastroparesis Generalized weakness GERD High cholesterol History of stress test HLD (hyperlipidemia) Hypertension Hypoxia Insomnia Irritable bowel syndrome without diarrhea Ischemic bowel disease Low back pain Migraine Migraine headache Movement disorder Pain from implanted hardware Palpitations Palpitations Post-menopausal Scoliosis Scoliosis of lumbar spine Segmental and somatic dysfunction of lumbar region Segmental and somatic dysfunction of pelvic region Segmental dysfunction of thoracic region Shortness of breath on exertion SOB (shortness of breath) Stenosis, cervical spine Uses wheelchair Vitamin D deficiency Walker as ambulation aid Wears dentures Wears glasses Wears hearing aid Home Medications buspirone 7.5 mg tablet 7.5 mg PO BID Check with primary doctor 02/17/20 [History Last Taken 04/26/22] clonazepam 1 mg tablet 1 mg PO TID anxiety 02/17/20 [History Last Taken 04/26/22] gabapentin 400 mg capsule 400 mg PO Q6H Check with primary doctor 04/20/22 [History Last Taken 04/26/22] acetaminophen 325 mg tablet 650 mg (2 x 325 mg) PO Q6H PRN PRN Pain 1-10 Or Fever >100.7 #0 tabs 08/02/22 [Rx Last Taken Unknown] bisacodyl 10 mg rectal suppository 10 mg UT DAILY PRN Constipation 30 days #0 ea 10/14/22 [Rx Last Taken Unknown] naproxen 500 mg tablet 500 mg PO Q12H PRN arthritis pain 30 days #0 tabs 10/14/22 [Rx Last Taken Unknown] polyethylene glycol 3350 17 gram/dose oral powder (Miralax) 17 g PO DAILY #238 grams 10/14/22 [Rx Last Taken Unknown] sennosides 8.6 mg-docusate sodium 50 mg tablet (Stool Softener-Stimulant Laxative) 2 tab PO BID 30 days #0 tabs 10/14/22 [Rx Last Taken Unknown] pantoprazole 40 mg tablet,delayed release (Protonix) 40 mg PO DAILY #30 tabs 11/04/22 [Rx Last Taken Unknown] prednisone 20 mg tablet 40 mg (2 x 20 mg) PO DAILY 5 days #10 tabs 03/17/23 [Rx Last Taken Unknown] tramadol 50 mg tablet 50 mg PO Q6H PRN pain 3 days #12 tabs 03/17/23 [Rx Last Taken Unknown] Allergy/AdvReac Type Severity Reaction Status Date / Time hydrocodone [From Vicodin] Allergy NERVOUS, Verified 03/17/23 13:31 JITTERY Penicillins Allergy Rash Verified 03/17/23 13:31 Family History Other CVA (cerebral vascular accident) Cancer Hypertension Surgical History History of 2 sections History of cardiac catheterization History of lumbar laminectomy Hx of dilation and curettage Hx of surgical procedure Social History (Updated 11/01/22 @ 11:[address] Helena Ann DO) household members: spouse housing: house number of children: 2 Smoking Status: Current every day smoker tobacco type: e-cigarettes alcohol intake: never substance use type: does not use what type of physical activity do you participate in: none additional social history: Currently ambulating with a cane ROS ROS ED ROS Narrative Constitutional: Negative for fever, chills, malaise. GI: Negative for abdominal pain, nausea, vomiting. : Negative for dysuria. Neuro: Negative for motor/sensory dysfunction. Musc: Negative for joint pain, swelling, trauma. EXAM Physical Exam Narrative Exam Narrative: CONST: Patient sitting in no acute distress. EYES: Normal inspection. NECK: Normal inspection. RESP: No respiratory distress, CTAB. CVS: Regular rate and rhythm, no murmur, no gallop. . Back: Scoliosis, tender over lower lumbar spine, no step offs or crepitus. 5/5 strength in bilateral hip flexion, knee flexion/extension, DF/PF. Normal sensation light touch, 2+ DP pulses. No swelling or skin changes, compartments soft. SKIN: Color normal, no rash, warm, dry, intact. EXTREMITIES: Normal appearance, no pedal edema. NEURO: Oriented x4. PSYCH: Normal affect. Const Vital Signs: 03/17/23 13:31 Temperature 98 F Temperature Source Temporal Pulse Rate 87 Respiratory Rate 14 Blood Pressure 128/73 H Blood Pressure Mean 91 Pulse Ox 97 Oxygen Delivery Method Room Air MDM MDM MDM Narrative Medical decision making narrative: History gathered from: Patient and spouse Patient has chronic low back pain radiating down the right leg. She states her symptoms are more severe but in the same distribution. No recent injuries. No red flag symptoms. She appears well and nontoxic with stable vital signs. On exam she has severe scoliosis and lower lumbar midline tenderness with no step- offs. Lower extremity MSPs and reflexes are intact. Since she had midline tenderness x-rays were obtained and show severe scoliosis but no acute changes. She has no red flag symptoms concerning for cauda equina syndrome. She was treated with tramadol. I prescribed tramadol and prednisone for home and recommended she follow-up with her PCP next week. She was discharged in stable condition. Differential: Chronic back pain, spinal fracture, radiculopathy Radiography Diagnostic Testing: Clinical Impression(s) from Imaging Studies Lumbar Spine X-Ray 03/17/23 14:25 IMPRESSION: Moderate to severe scoliotic degenerative curve with multilevel degenerative disc changes. The setting of radiculopathy consider MRI imaging for further assessment and analysis. Electronically Signed: David Joe, DO at 14:54 EST , ED attending interpretation of lumbar spine shows severe scoliosis, no acute fracture. Discharge Plan Triage Chief Complaint: Back ED Midlevel Provider: Annabel Mcgrath ED Provider: Gladys Anne Dx/Rx/DC Orders Clinical Impression: Chronic low back pain, Scoliosis Instructions: ED Back Care Tips Prescriptions: New prednisone 20 mg tablet 40 mg PO DAILY 5 Days Qty: 10 0RF tramadol 50 mg tablet 50 mg PO Q6H PRN (Reason: pain) 3 Days Qty: 12 0RF No Action clonazepam 1 MG tablet 1 mg PO TID buspirone 7.5 MG tablet 7.5 mg PO BID gabapentin 400 mg capsule 400 mg PO Q6H acetaminophen 325 mg Tablet 650 mg PO Q6H PRN PRN (Reason: Pain 1-10 Or Fever >100.7) Qty: 0 0RF sennosides-docusate sodium [Stool Softener-Stimulant Laxat] 8.6-50 mg Tablet 2 tab PO BID 30 Days Qty: 0 0RF Rx Instructions: Take as scheduled for 3 days and then as needed for constipation Available [id number]. bisacodyl 10 mg Suppository 10 mg UT DAILY PRN (Reason: Constipation) 30 Days Qty: 0 0RF Rx Instructions: [id number]. polyethylene glycol 3350 [Miralax] 17 gram/dose powder 17 g PO DAILY Qty: 238 0RF Rx Instructions: available over the counter naproxen 500 mg tablet 500 mg PO Q12H PRN (Reason: arthritis pain) 30 Days Qty: 0 0RF Patient Comments: TAKE 1 TABLET BY MOUTH EVERY 12 HOURS pantoprazole [Protonix] 40 mg tablet,delayed release (DR/EC) 40 mg PO DAILY Qty: 30 0RF Primary Care Provider: Harish Luis Chi Referrals: Harish Luis Chi, MD [Primary Care Provider] - Activity Restrictions/Additional Instructions: I prescribed tramadol and prednisone which is a steroid to treat your chronic pain. You can continue taking Aleve. Please follow-up with your primary care doctor next week. Disposition Disposition: Home, Self Care
[2023-03-17] MEDS: traMADol 50 MG Tablet PO (13:52)
--- NOTE | 2023-03-17 14:25 | RAD_ITS ---
STUDY: X-RAY - LUMBAR SPINE REASON FOR EXAM: Female, 72 years old. pain TECHNIQUE: 4 view(s) of the lumbar spine were obtained. COMPARISON: 07/10/2019 lumbar spine FINDINGS: There is reversal of the normal lumbar lordosis. There is dextroscoliotic moderate to severe curve of the lumbar spine with apex at L2-3. There is a normal alignment of the vertebrae. There is diffuse demineralization with multi-level endplate spondylosis. There is multi-level degenerative disc disease with multi-level disc space narrowing. The soft tissue structures are unremarkable. RAD/Lumbar Spine 2 or 3 Views IMPRESSION: Moderate to severe scoliotic degenerative curve with multilevel degenerative disc changes. The setting of radiculopathy consider MRI imaging for further assessment and analysis. Electronically Signed: David Joe DO at 14:54 EST ,
== END 2023-03-17 15:29 | disposition home or self-care (01) ==
PROVIDERS: Emergency Provider Emergency Medicine; PCP Family Medicine Geriatric Medicine; Visit Provider Emergency Medicine
DX: M41.9 Scoliosis, unspecified (principal); G89.29 Other chronic pain; F41.9 Anxiety disorder, unspecified; F32.A Depression, unspecified; F17.290 Nicotine dependence, other tobacco product, uncomplicated; Z86.16 Personal history of COVID-19; Z79.899 Other long term (current) drug therapy
CPT/HCPCS: 72100; 99282

== ENCOUNTER → 2023-06-27 | Outpatient (CLI) | payer MEDICARE, SELFPAY | END | disposition home or self-care (01) | LOC: POLAB3 15:42 | PROVIDERS: PCP Family Medicine Geriatric Medicine; Visit Provider Family Medicine Geriatric Medicine | DX: N39.0 Urinary tract infection, site not specified (principal) | CPT/HCPCS: 87077; 87086; 87088; 87186 ==

== ENCOUNTER → 2023-07-11 | Outpatient (CLI) | payer MEDICARE, SELFPAY ==
[2023-07-11 14:36] LABS: Absolute Lymphocyte Count 1.63 X10^3/uL (0.83-4.51); Absolute Neutrophil Count 3.9 X10^3/uL (2.0-7.7); Basophil# 0.06 X10^3/uL; Eosinophil# 0.14 X10^3/uL; Eosinophils% 2.3 % (0-5); Hematocrit 40.7 % (37-47); Hemoglobin 12.9 g/dL (12.0-15.0); Lymphocyte # 1.63 X10^3/ul (0.83-4.51); Lymphocyte % 26.4 % (19-41); Mean Corp Hgb Conc 31.7 g/dL (32-36); Mean Corpuscular Hgb 30.9 pg (27.0-32.0); Mean Corpuscular Volume 97.6 fL (81-99); Mean Platelet Vol. 9.7 fl (6.2-12.0); Monocyte% 6.5 % (0-10); NRBC Flagged by Analyzer 0 % (0-5); Neutrophil # 3.92 X10^3/uL (2.7-7.7); Neutrophil % 63.3 % (47-70); Platelet Count 433 K/mm3 (150-450); RBC Distribution Width CV 14.1 % (11.6-14.6); RBC Distribution Width SD 51.5 fl (35.1-43.9); Red Blood Count 4.17 M/mm3 (4.2-5.4); White Blood Count 6.2 K/mm3 (4.4-11.0)
[2023-07-11 15:08] LABS: Vitamin D,25 Hydroxy 24.5 ng/mL
[2023-07-11 15:27] LABS: ALB/GLOB Ratio 0.8 RATIO (0.9-2.4); AST(SGOT) 18 U/L (15-37); Alanine Aminotransfer ALT/SGPT 26 U/L (13-56); Albumin, Serum 3.1 g/dL (3.2-5.0); Alkaline Phosphatase 103 U/L (45-117); Anion Gap 6 (5-15); BUN 8 mg/dL (7-18); BUN/Creat Ratio 8.4 RATIO (10-20); Calcium,Total 8.8 mg/dL (8.5-10.1); Chloride 109 mmol/L (98-107); Cholesterol 314 mg/dL (200); Creatinine, Serum 0.96 mg/dL (0.55-1.02); EST Glomerular Filtration Rate 61 mL/min (>60); Est Glom Filt Rate - Afr Amer 74 mL/min (>60); Globulin 4.1 g/dL (2.2-4.2); Glucose 114 mg/dL (74-106); High Density Lipoprotein 79 mg/dL; Potassium 3.6 mmol/L (3.5-5.1); Protein, Total 7.2 g/dL (6.4-8.2); Sodium Level 141 mmol/L (136-145); Thyroid Stim Hormone (TSH) 0.92 uIU/mL (0.358-3.74); Triglycerides 135 mg/dL; Very Low Density Lipoprotein 27 mg/dL (5-40)
== END | disposition home or self-care (01) ==
LOC: POLAB3 13:14
PROVIDERS: PCP Family Medicine Geriatric Medicine; Visit Provider Family Medicine Geriatric Medicine
DX: R53.83 Other fatigue (principal); E55.9 Vitamin D deficiency, unspecified; E78.5 Hyperlipidemia, unspecified
CPT/HCPCS: 36415; 80053; 80061; 82306; 84443; 85025

== ENCOUNTER 2023-07-24 19:50 | Emergency (ER) | payer MEDICARE, SELFPAY ==
[2023-07-24 19:51] VITALS: BP 123/70; PULSE 77; RESP 18; TEMP 36.3; O2SAT 92
--- NOTE | 2023-07-24 20:05 | EDS_ITS ---
HPI History of Present Illness HPI Narrative: Patient presents with pain in her right shoulder and upper arm that began today. Patient states she fell and landed on her right arm. Patient describes her pain as stabbing. Patient states it is worse with movement. Patient states it is better when she is able to hang her arm down to her side. Patient denies any head injury or loss of consciousness. Patient denies any paresthesias or weakness. Patient denies any other injuries. Chief Complaint: Upper Extremity Injury Informant: patient Occured/Mechanism Mechanism/Context: Yes fall Onset/Context/Timing Onset: Today Context: Sudden Onset Timing: Continuous Quality of Pain: Stabbing Location: Right shoulder and upper arm Worsened by: Movement Relieved by: Pain in her arm down to her side Associated Symptoms Associated Symptoms: Negative for Parasthesia, Weakness or Loss of Funtion PFSH PFSH Medical History Abnormal CT of the abdomen Allergic rhinitis Ambulates with cane Anxiety Arthritis Asthma Back pain Carpal tunnel syndrome on both sides Cervical stenosis of spine Chronic cough Chronic lower back pain Closed head injury COVID-19 Debility Depression Depression Dysphagia Edema Former smoker Gastric reflux Gastroparesis Generalized weakness GERD High cholesterol History of stress test HLD (hyperlipidemia) Hypertension Hypoxia Insomnia Irritable bowel syndrome without diarrhea Ischemic bowel disease Low back pain Migraine Migraine headache Movement disorder Pain from implanted hardware Palpitations Palpitations Post-menopausal Scoliosis Scoliosis of lumbar spine Segmental and somatic dysfunction of lumbar region Segmental and somatic dysfunction of pelvic region Segmental dysfunction of thoracic region Shortness of breath on exertion SOB (shortness of breath) Stenosis, cervical spine Uses wheelchair Vitamin D deficiency Walker as ambulation aid Wears dentures Wears glasses Wears hearing aid Home Medications buspirone 7.5 mg tablet 7.5 mg PO BID Check with primary doctor 02/17/20 [H istory Last Taken 04/26/22] clonazepam 1 mg tablet 1 mg PO TID anxiety 02/17/20 [History Last Taken 04/26/22] gabapentin 400 mg capsule 400 mg PO Q6H Check with primary doctor 04/20/22 [History Last Taken 04/26/22] acetaminophen 325 mg tablet 650 mg (2 x 325 mg) PO Q6H PRN PRN Pain 1-10 Or Fever >100.7 #0 tabs 08/02/22 [Rx Last Taken Unknown] bisacodyl 10 mg rectal suppository 10 mg IN DAILY PRN Constipation 30 days #0 ea 10/14/22 [Rx Last Taken Unknown] sennosides 8.6 mg-docusate sodium 50 mg tablet (Stool Softener-Stimulant Laxative) 2 tab PO BID 30 days #0 tabs 10/14/22 [Rx Last Taken Unknown] prednisone 20 mg tablet 40 mg (2 x 20 mg) PO DAILY 5 days #10 tabs 03/17/23 [Rx Last Taken Unknown] tramadol 50 mg tablet 50 mg PO Q6H PRN pain 3 days #12 tabs 03/17/23 [Rx Last Taken Unknown] Allergy/AdvReac Type Severity Reaction Status Date / Time hydrocodone [From Vicodin] Allergy NERVOUS, Verified 07/24/23 19:51 JITTERY Penicillins Allergy Rash Verified 07/24/23 19:51 Family History Other CVA (cerebral vascular accident) Cancer Hypertension Surgical History History of 2 sections History of cardiac catheterization History of lumbar laminectomy Hx of dilation and curettage Hx of surgical procedure Social History household members: spouse housing: house number of children: 2 Smoking Status: Current every day smoker tobacco type: e-cigarettes alcohol intake: never substance use type: does not use what type of physical activity do you participate in: none additional social history: Currently ambulating with a cane [facility] ED Constitutional Constitutional ED: Denies chills or fever(s) Eyes Eyes: Denies blurry vision or change in vision ENT ENT ED: Denies rhinorrhea or sore throat Cardiovascular Cardiovascular: Denies chest pain or palpitations Respiratory/Chest Respiratory/Chest: Reports cough; Denies dyspnea Gastrointestinal Gastrointestinal: Denies nausea or vomiting Genitourinary Genitourinary ED: Denies dysuria or hematuria Musculoskeletal Musculoskeletal: Denies back pain or neck pain Integumentary Denies abscess or rash Neurologic Neurologic: Denies headache(s) or weakness Allergic/Immunologic Allergic/Immunologic ED: Denies mouth swelling or urticaria EXAM Physical Exam Const Vital Signs: 07/24/23 19:51 Temperature 97.3 F L Temperature Source Temporal Pulse Rate 77 Respiratory Rate 18 Blood Pressure 123/70 H Blood Pressure Mean 87 Pulse Ox 92 Oxygen Delivery Method Room Air Positive well nourished and well developed General Appearance ED: well developed and NAD HEENT Reports moist mucous membranes Neck full ROM and supple Extremity Extremity Narrative: There is tenderness over the right shoulder. There is no obvious deformity noted. Range of motion was limited in all motions of the right shoulder secondary to pain. Radial pulses are equal bilaterally. Sensation was intact to light touch in the radial, median, and ulnar areas. Strength is 5/5 in the radial, median, and ulnar areas. Neuro oriented x3, CN's II-XII intact bilaterally, moves all extremities, no focal motor deficits and no sensory deficits noted Sensorium / Orientation: alert Motor Exam: strength 5/5 throughout Psych mental status grossly normal MDM MDM MDM Narrative Medical decision making narrative: Differential diagnosis includes sprain, contusion, and occult fracture. X-rays of the right shoulder will be obtained to assess for occult fracture. X-rays of the right humerus will be obtained to assess for fracture. Radiography Diagnostic Testing: X-rays of the right shoulder were obtained. There are 4 views. On my independent interpretation, there is a fracture of the greater tuberosity. There is no dislocation. There is no other fracture noted. Radiologist also interpreted the x-ray and agrees. X-rays of the right humerus were obtained. There are 4 views. On my independent interpretation, there is a fracture of the greater tuberosity. There is no other fracture noted. Radiologist also interpreted the x-rays and agrees. Treatment and Re-Evaluation Narrative: Patient was advised of her findings. Patient was instructed to use ice to the area. Patient was placed in a sling and swath. Patient was instructed to follow-up with her primary care physician in 5 to 7 days. Patient and family understood and were agreeable with the plan. All questions were answered. Discharge Plan Triage Chief Complaint: Upper Extremity Injury ED Provider: Doni Calderon Dx/Rx/DC Orders Clinical Impression: Closed fracture of greater tuberosity of right humerus, Fall Instructions: ED Fracture, Shoulder Prescriptions: No Action clonazepam 1 MG tablet 1 mg PO TID buspirone 7.5 MG tablet 7.5 mg PO BID gabapentin 400 mg capsule 400 mg PO Q6H acetaminophen 325 mg Tablet 650 mg PO Q6H PRN PRN (Reason: Pain 1-10 Or Fever >100.7) Qty: 0 0RF sennosides-docusate sodium [Stool Softener-Stimulant Laxat] 8.6-50 mg Tablet 2 tab PO BID 30 Days Qty: 0 0RF Rx Instructions: Take as scheduled for 3 days and then as needed for constipation Available [id number]. bisacodyl 10 mg Suppository 10 mg IN DAILY PRN (Reason: Constipation) 30 Days Qty: 0 0RF Rx Instructions: [id number]. prednisone 20 mg tablet 40 mg PO DAILY 5 Days Qty: 10 0RF tramadol 50 mg tablet 50 mg PO Q6H PRN (Reason: pain) 3 Days Qty: 12 0RF Stand Alone Forms: [facility] Referral Primary Care Provider: Harish Luis Chi Referrals: Harish Luis Chi, MD [Primary Care Provider] - 5-7 Days Disposition Disposition: Home, Self Care
--- NOTE | 2023-07-24 20:27 | RAD_ITS ---
EXAM: XR RIGHT HUMERUS, 2 OR MORE VIEWS CLINICAL INDICATION: Injury/Pain TECHNIQUE: Frontal and lateral views of the right humerus. COMPARISON: No relevant prior studies available. FINDINGS: BONES/JOINTS: Fracture of the greater tuberosity. The distal humerus is intact. The elbow and shoulder joint space. No sclerotic or destructive changes observed. SOFT TISSUES: Unremarkable. No soft tissue swelling or gas. No radiopaque foreign body. RAD/Humerus min 2 Views IMPRESSION: Fracture of the greater tuberosity. Electronically Signed: Syed Lopez MD at 21:15 EDT ,
--- NOTE | 2023-07-24 20:45 | RAD_ITS ---
EXAM: XR RIGHT SHOULDER COMPLETE, 2 OR MORE VIEWS CLINICAL INDICATION: Injury/Pain TECHNIQUE: Two or more views of the right shoulder. COMPARISON: No relevant prior studies available. FINDINGS: BONES/JOINTS: There is irregularity of the greater tuberosity which may represent a fracture. Preservation of the joint space. No sclerotic or destructive changes observed. SOFT TISSUES: Unremarkable. No soft tissue swelling or gas. No radiopaque foreign body. RAD/Shoulder min 2 Views IMPRESSION: Fracture of the greater tuberosity. Electronically Signed: Syed Lopez MD at 21:15 EDT ,
[2023-07-24 22:13] VITALS: BP 137/77; PULSE 61; RESP 18; TEMP 36.2; O2SAT 93
== END 2023-07-24 22:15 | disposition home or self-care (01) ==
PROVIDERS: Emergency Provider Emergency Medicine; PCP Family Medicine Geriatric Medicine; Visit Provider Emergency Medicine
DX: S42.301A Unspecified fracture of shaft of humerus, right arm, initial encounter for closed fracture (principal); W19.XXXA Unspecified fall, initial encounter; R05.9 Cough, unspecified; F17.210 Nicotine dependence, cigarettes, uncomplicated; I10 Essential (primary) hypertension; E78.5 Hyperlipidemia, unspecified; Z86.16 Personal history of COVID-19; K21.9 Gastro-esophageal reflux disease without esophagitis
CPT/HCPCS: 73030; 73060; 99283

== ENCOUNTER → 2023-07-27 | Outpatient (CLI) | payer MEDICARE, SELFPAY ==
--- NOTE | 2023-07-27 11:15 | RAD_ITS ---
INDICATION: APPETITE LOSS EXAMINATION/TECHNIQUE: X-RAY - XR Abdomen W/ Decub and/or Erect Views COMPARISON: None FINDINGS: Tubes and lines: 1. Spinal stimulator leads are present however appear to terminate in the region of the LEFT pelvis without a battery pack or electronic device.. BOWEL GAS PATTERN: Moderate to large amount retained stool in colon. No evidence of bowel obstruction. No pneumatosis. No bowel or stomach distention. FREE AIR: Not assessed on a single supine view. ORGANOMEGALY: Not seen. CALCIFICATIONS: No abnormal calcifications observed. LOWER CHEST: No acute pathology. BONES AND SOFT TISSUES: Moderate to extensive dextro scoliotic curvature of the lumbar spine. No acute bony changes. RAD/Abd Inc Decub and/or Erect IMPRESSION: 1. Moderate to large amount retained stool, constipation is consideration. 2. No evidence of bowel obstruction or free air. 3. Dextro scoliotic curvature of the lumbar spine. 4. Spinal stimulator leads project along the lower thoracic spine however do not appear to be connected with a battery pack or stimulator. Electronically Signed: Ottoniel Lim MD at 20:10 EDT ,
== END | disposition home or self-care (01) ==
LOC: RAD 11:12
PROVIDERS: PCP Family Medicine Geriatric Medicine; Referring Provider Family Medicine Geriatric Medicine; Visit Provider Family Medicine Geriatric Medicine
DX: R63.0 Anorexia (principal)
CPT/HCPCS: 74019

== ENCOUNTER 2023-07-30 13:34 | Inpatient (IN) | payer MEDICARE, SELFPAY ==
[2023-07-30] VITALS (15 sets, daily range): BP systolic 83–134; BP diastolic 43–81; PULSE 87–107; RESP 16–24; TEMP 36.2–36.8; O2SAT 79–98; BMI 22.4; BMI 22.8
--- NOTE | 2023-07-30 14:03 | RAD_ITS ---
INDICATION: fall EXAMINATION/TECHNIQUE: X-RAY - RIGHT XR Shoulder Min 2 Views 4 VIEWS COMPARISON: Prior study dated: 07/24/2023. FINDINGS: SOFT TISSUES: No soft tissue swelling or gas. No radiopaque foreign body. BONES/JOINTS: Fracture fragment in the region of the greater tuberosity more displaced than the previous exam. No other fractures are seen. No evidence of dislocation. Preservation of the joint space.. No sclerotic or destructive changes observed. RAD/Shoulder min 2 Views IMPRESSION: Fracture of the greater tuberosity more displaced than the previous exam. Electronically Signed: Bobo Barrientos MD at 15:15 EDT ,
--- NOTE | 2023-07-30 14:03 | CT_ITS ---
INDICATION: fall EXAMINATION: CT BRAIN - CT Head or Brain W/O Contrast Injection TECHNIQUE: Multiple axial images were obtained of the head without intravenous contrast. A radiation dose optimization technique was used for this scan. IV Contrast dosage and agent: None. RADIATION DOSAGE (If Supplied By Facility): CTDIvol = ( 44.99 ) mGy, DLP = ( 779.24 ) mGycm COMPARISON: No relevant prior comparison study available FINDINGS: BRAIN PARENCHYMA: No intra- or extra-axial hemorrhage. No evidence of acute infarct. No intracranial mass or mass effect. There is preservation of the moy/white matter interface. Posterior fossa structures are unremarkable. CSF SPACES: Appropriate for age. No hydrocephalus. Basal cisterns are patent. CALVARIUM, SKULL BASE, PARANASAL SINUSES AND MASTOID AIR CELLS: Clear. No discrete lytic or blastic abnormalities. ORBITS: Both globes, extraocular muscles, optic nerves and retrobulbar fat appear unremarkable. CT/Brain/Head without Contrast IMPRESSION: No acute intracranial process. Electronically Signed: Bobo Barrientos MD at 15:03 EDT ,
--- NOTE | 2023-07-30 14:03 | CT_ITS ---
INDICATION: fall EXAMINATION: CT FACIAL BONES - CT Maxillofacial W/O Contrast Injection TECHNIQUE: Helically acquired images were obtained of the facial bones. A radiation dose optimization technique was used for this scan. IV Contrast dosage and agent: None. RADIATION DOSAGE (If Supplied By Facility): CTDIvol = ( 29.38 ) mGy, DLP = ( 591.53 ) mGycm COMPARISON: No relevant prior comparison study available FINDINGS: SOFT TISSUES: No focal subcutaneous swelling. No discrete fluid collections. VISUALIZED PARANASAL SINUSES: Mild mucosal thickening of the ethmoid sinuses. Chana bullosa of the left middle nasal turbinate. Deviation of nasal septum to the right side. VISUALIZED MASTOID AIR CELLS: Clear. FACIAL BONES, MANDIBLE AND TMJs: No displaced facial bone fracture. No lytic or blastic abnormality. VISUALIZED DENTITION: No periodontal osseous erosion. ORBITAL CONTENTS: Both globes, extraocular muscles and retrobulbar fat appear unremarkable. CT/Sinus/Facial Bone IMPRESSION: No evidence of acute fracture of the facial bones. Electronically Signed: Bobo Barrientos MD at 15:12 EDT ,
--- NOTE | 2023-07-30 14:03 | CT_ITS ---
INDICATION: fall EXAMINATION: CT CERVICAL SPINE - CT Spine Cervical W/O Contrast Injection TECHNIQUE: Helically acquired images were obtained of the cervical spine. 2D reformatted images were reviewed. A radiation dose optimization technique was used for this scan. IV Contrast dosage and agent: None. RADIATION DOSAGE (If Supplied By Facility): CTDIvol = ( 13.22 ) mGy, DLP = ( 274.76 ) mGycm COMPARISON: No relevant prior comparison study available FINDINGS: VERTEBRAE: No fracture or traumatic subluxation. No discrete lytic or blastic abnormality. Straightening of the cervical spine. Normal craniocervical junction and cervicothoracic junction. DISCS and SPINAL CANAL: Narrowing of C5-C6 and C6-C7 disc spaces. Broad-based posterior discogenic osteophyte formation at the level of C7 with moderate central spinal canal and neural foramina stenosis. Mild stenosis at the level of C5-C6. NECK SOFT TISSUES: No prevertebral soft tissue swelling. Atherosclerotic calcifications of the carotid arteries bilaterally. LUNG APICES: Clear. CT/Spine Cervical without Contras IMPRESSION: 1. No evidence of acute cervical spinal fracture or spondylolisthesis. 2. Degenerative changes as described above. 3. Straightening of the cervical spine which could be due to muscle spasm. Electronically Signed: Bobo Barrientos MD at 15:07 EDT ,
--- NOTE | 2023-07-30 14:03 | RAD_ITS ---
INDICATION: cough EXAMINATION/TECHNIQUE: X-RAY - XR Chest 1 View COMPARISON: No relevant prior comparison study available FINDINGS: LINES/DEVICES: None. LUNGS: Bilateral lower lungs infiltrates/edema worse on the right side. No definite pleural effusions. MEDIASTINUM AND CARDIOVASCULAR STRUCTURES: Cardiac silhouette not enlarged. Central airways and mediastinal contour are unremarkable. BONES AND SOFT TISSUES: Pain management wires overlying the thoracic spine. RAD/Chest 1 View (Portable) IMPRESSION: Bilateral lower lungs infiltrates could be due to pneumonia or edema. Electronically Signed: Bobo Barrientos MD at 15:13 EDT ,
--- NOTE | 2023-07-30 14:09 | EDS_ITS ---
HPI <CHILO Ramirez - Last Filed: 07/30/23 16:54> History of Present Illness Chief Complaint: Alt LOC Narrative Narrative: Patient is a 73-year-old female with history of chronic back pain who takes tramadol, Klonopin, anxiety depression who presents to the emergency department for falls, altered mental status, hypoxia. Per the , the patient was found on the ground in the living room early this morning, the patient sleeps on the couch. The is unsure how she fell. Later today, the could not find the patient, was looking around the house, and then heard her scream, she was in the garage facedown with abrasions to her face. The patient has been more sleepy than normal, they called her PCP who referred her to the emergency department. Patient was hypoxic in triage. PFS <CHILO Ramirez - Last Filed: 07/30/23 16:54> FOR[facility]LY [facility], [facility] Medical History Abnormal CT of the abdomen Allergic rhinitis Ambulates with cane Anxiety Arthritis Asthma Back pain Carpal tunnel syndrome on both sides Cervical stenosis of spine Chronic cough Chronic lower back pain Closed head injury COVID-19 Debility Depression Depression Dysphagia Edema Former smoker Gastric reflux Gastroparesis Generalized weakness GERD High cholesterol History of stress test HLD (hyperlipidemia) Hypertension Hypoxia Insomnia Irritable bowel syndrome without diarrhea Ischemic bowel disease Low back pain Migraine Migraine headache Movement disorder Pain from implanted hardware Palpitations Palpitations Post-menopausal Scoliosis Scoliosis of lumbar spine Segmental and somatic dysfunction of lumbar region Segmental and somatic dysfunction of pelvic region Segmental dysfunction of thoracic region Shortness of breath on exertion SOB (shortness of breath) Stenosis, cervical spine Uses wheelchair Vitamin D deficiency Walker as ambulation aid Wears dentures Wears glasses Wears hearing aid Home Medications buspirone 7.5 mg tablet 7.5 mg PO BID Check with primary doctor 02/17/20 [History Last Taken 04/26/22] clonazepam 1 mg tablet 1 mg PO TID anxiety 02/17/20 [History Last Taken 04/26/22] gabapentin 400 mg capsule 400 mg PO Q6H Check with primary doctor 04/20/22 [History Last Taken 04/26/22] acetaminophen 325 mg tablet 650 mg (2 x 325 mg) PO Q6H PRN PRN Pain 1-10 Or Fever >100.7 #0 tabs 08/02/22 [Rx Last Taken Unknown] tramadol 50 mg tablet 50 mg PO Q6H PRN pain 3 days #12 tabs 03/17/23 [Rx Last Taken Unknown] doxepin 150 mg capsule 150 mg PO QHS 07/30/23 [History Last Taken Unknown] metoprolol succinate 25 mg tablet,extended release 24 hr 25 mg PO DAILY 07/30/23 [History Last Taken Unknown] omeprazole 20 mg capsule,delayed release 20 mg PO DAILY 07/30/23 [History Last Taken Unknown] Allergy/AdvReac Type Severity Reaction Status Date / Time hydrocodone [From Vicodin] Allergy NERVOUS, Verified 07/30/23 13:37 JITTERY Penicillins Allergy Rash Verified 07/30/23 13:37 Family History Other CVA (cerebral vascular accident) Cancer Hypertension Surgical History History of 2 sections History of cardiac catheterization History of lumbar laminectomy Hx of dilation and curettage Hx of surgical procedure Social History household members: spouse housing: house number of children: 2 Smoking Status: Current every day smoker tobacco type: e-cigarettes alcohol intake: never substance use type: does not use what type of physical activity do you participate in: none additional social history: Currently ambulating with a cane ROS <CHILO Ramirez - Last Filed: 07/30/23 16:54> ROS ED ROS Narrative Constitutional: Negative for fever, chills, weight loss. Positive for weakness Eyes: Negative for vision loss, vision change, double vision ENT: Negative for any sore throat, ear pain, congestion Cardiovascular: Negative for any chest pain, tightness, palpitations Respiratory: Negative for any cough, sputum production, hemoptysis, dyspnea, dyspnea on exertion, orthopnea Gastrointestinal: Negative for any abdominal pain, nausea, vomiting, diarrhea, constipation, blood in stool, blood in vomit : Negative for any urinary frequency, dysuria, retention, blood in urine Muscle skeletal: Negative for any neck pain, back pain. Positive right shoulder pain Neurological: Negative for any headache, syncope, dizziness Skin: Negative for any rashes, itching. Positive for abrasions, superficial lacerations left face positive for ecchymosis Psychiatric: Negative for any depression, anxiety, stress, suicidal ideation, homicidal ideation Hematologic: Negative for any excessive bruising, easy bleeding EXAM <Tony BakarisimaCHILO marshall - Last Filed: 07/30/23 16:54> Physical Exam Narrative Exam Narrative: Vital signs reviewed. Patient's GCS of 14, patient does appear lethargic. Patient is hypotensive, slightly tachycardic. Patient will be described as lethargic, somnolence. She does wake up to verbal stimuli. Patient is a poor informant. I did get most of the information from the who is sitting in the room. Patient does ap pear disheveled. HEET: Head normocephalic atraumatic, TMs clear bilaterally. Posterior pharynx is clear, moist mucous membranes. Nares clear bilaterally. Patient has superficial abrasions around the left eye, pupils are equal round and reactive. No hemotympanum, negative for any septal hematoma. Neck: Supple with no lymphadenopathy or tenderness. No signs of meningismus. Cardiac: Regular rate and rhythm no murmurs gallops or rubs, equal peripheral pulses bilaterally. Respiratory: Lungs clear to auscultation bilaterally. No chest tenderness. Abdomen: Soft, nontender, nondistended. No abdominal bruit or pulsatile masses. No hepatosplenomegaly Extremities: No peripheral edema, no signs of gross trauma or deformity. Active full range of motion of all extremities. Slight bruises to her knees however this appears old. Neuro: Cranial nerves II through XII intact, no focal neurological deficits. Patient would be described as lethargic. Patient does wake up with verbal stimuli however she does not really go back to sleep. Skin: Clean dry and intact with no rash, purpura, petechiae, vesicles or pustules. Backs/flank: No CVA tenderness, no midline spinal tenderness, no deformity. Psych: Normal mood and affect. No SI, HI or acute psychosis. Const Vital Signs: 07/30/23 13:35 07/30/23 13:37 07/30/23 13:45 Temperature 97.2 F L Temperature Source Temporal Pulse Rate 107 H Respiratory Rate 20 H Respiratory Effort Respiratory Depth Respiratory Pattern Blood Pressure 83/46 L Blood Pressure Mean 58 Pulse Ox 79 87 89 Oxygen Delivery Method Room Air Nasal Cannula Nasal Cannula Oxygen Flow Rate (L/min) 6 4 07/30/23 13:46 07/30/23 14:28 07/30/23 15:11 Temperature Temperature Source Pulse Rate Respiratory Rate Respiratory Effort Normal Non-Labored Respiratory Depth Normal Respiratory Pattern Irregular Blood Pressure Blood Pressure Mean Pulse Ox 97 Oxygen Delivery Method Nasal Cannula Nasal Cannula Nasal Cannula Oxygen Flow Rate (L/min) 6 6 4 07/30/23 15:50 07/30/23 15:00 07/30/23 16:00 Temperature Temperature Source Pulse Rate 90 93 88 Respiratory Rate 21 H 21 H 16 Respiratory Effort Respiratory Depth Respiratory Pattern Blood Pressure 91/52 L 86/43 L 100/57 L Blood Pressure Mean 65 57 71 Pulse Ox 95 97 98 Oxygen Delivery Method Nasal Cannula Nasal Cannula Non-Rebreather Oxygen Flow Rate (L/min) 2 4 2 07/30/23 16:36 07/30/23 16:36 Temperature 98.2 F 98.2 F Temperature Source Oral Pulse Rate 87 87 Respiratory Rate 17 17 Respiratory Effort Respiratory Depth Respiratory Pattern Blood Pressure 95/59 L 95/59 L Blood Pressure Mean 71 71 Pulse Ox 95 95 Oxygen Delivery Method Nasal Cannula Oxygen Flow Rate (L/min) Positive unkempt General Appearance ED: unkempt Psych Appearance: unkempt <Dr. Guilherme Collins MD - Last Filed: 07/30/23 15:56> Physical Exam Const Vital Signs: 07/30/23 13:35 07/30/23 13:37 07/30/23 13:45 Temperature 97.2 F L Temperature Source Temporal Pulse Rate 107 H Respiratory Rate 20 H Respiratory Effort Respiratory Depth Respiratory Pattern Blood Pressure 83/46 L Blood Pressure Mean 58 Pulse Ox 79 87 89 Oxygen Delivery Method Room Air Nasal Cannula Nasal Cannula Oxygen Flow Rate (L/min) 6 4 07/30/23 13:46 07/30/23 14:28 07/30/23 15:11 Temperature Temperature Source Pulse Rate Respiratory Rate Respiratory Effort Normal Non-Labored Respiratory Depth Normal Respiratory Pattern Irregular Blood Pressure Blood Pressure Mean Pulse Ox 97 Oxygen Delivery Method Nasal Cannula Nasal Cannula Nasal Cannula Oxygen Flow Rate (L/min) 6 6 4 07/30/23 15:50 07/30/23 15:00 07/30/23 16:00 Temperature Temperature Source Pulse Rate 90 93 88 Respiratory Rate 21 H 21 H 16 Respiratory Effort Respiratory Depth Respiratory Pattern Blood Pressure 91/52 L 86/43 L 100/57 L Blood Pressure Mean 65 57 71 Pulse Ox 95 97 98 Oxygen Delivery Method Nasal Cannula Nasal Cannula Non-Rebreather Oxygen Flow Rate (L/min) 2 4 2 07/30/23 16:36 07/30/23 16:36 Temperature 98.2 F 98.2 F Temperature Source Oral Pulse Rate 87 87 Respiratory Rate 17 17 Respiratory Effort Respiratory Depth Respiratory Pattern Blood Pressure 95/59 L 95/59 L Blood Pressure Mean 71 71 Pulse Ox 95 95 Oxygen Delivery Method Nasal Cannula Oxygen Flow Rate (L/min) MDM <CHILO Ramirez - Last Filed: 07/30/23 16:54> [facility] Lab Data Labs: Laboratory Results - last 24 hr 07/30/23 07/30/23 07/30/23 13:45 14:25 15:00 WBC 9.0 RBC 3.49 L Hgb 10.9 L Hct 33.8 L MCV 96.8 MCH 31.2 MCHC 32.2 RDW Std Deviation 48.8 H RDW Coeff of Mehnaz 13.7 Plt Count 317 MPV 10.6 Immature Gran % (Auto) 0.700 Neut % (Auto) 81.8 H Lymph % (Auto) 8.8 L Fentress % (Auto) 8.2 Eos % (Auto) 0.2 Baso % (Auto) 0.3 Absolute Neuts (auto) 7.4 Absolute Lymphs (auto) 0.79 L Nucleated RBC % 0 Differential Comment Diff Path Review May foll Smudge Cells 1+ H D-Dimer Quant (PE/DVT) 3.19 H* Sodium 139 Potassium 3.4 L Chloride 108 H Carbon Dioxide 22.0 Anion Gap 9 BUN 21 H Creatinine 1.74 H Estim Creat Clear Calc 22.77 Est GFR (MDRD) Af Amer 37 L Est GFR (MDRD) Non-Af 31 L BUN/Creatinine Ratio 12.1 Glucose 110 H Lactic Acid 3.4 H* Calcium 8.6 Ammonia 27.0 Troponin I High Sens 6 Urine Color Yellow Urine Clarity Clear Urine pH 5.0 Ur Specific [place] 1.020 Urine Protein 15 H Urine Glucose (UA) Normal Urine Ketones 5 H Urine Occult Blood Negative Urine Nitrite Negative Urine Bilirubin 1 H Urine Urobilinogen 1 H Ur Leukocyte Esterase 25 H Urine RBC 0 SEEN Urine WBC 0 SEEN Ur Squamous Epith Cells 0 SEEN Urine Bacteria 0 SEEN Urine Mucus 0 SEEN Urine Opiates Screen NEGATIVE Urine Methadone Screen NEGATIVE Ur Barbiturates Screen NEGATIVE Ur Phencyclidine Scrn NEGATIVE Ur Amphetamines Screen NEGATIVE MDMA (Ecstasy) Screen NEGATIVE U Benzodiazepines Scrn POSITIVE H Urine Cocaine Screen NEGATIVE U Cannabinoids Screen NEGATIVE Ur Drug Screen Comment ABG Data ABG results: ABG 07/30/23 14:27 Specimen Type PEYTON Sample Site Not entered O2 % 21.0 VBG pH 7.47 H VBG pO2 73 H VBG HCO3 22 VBG Total CO2 23 VBG O2 Sat (Calc) 96 H VBG Base Excess -2 L POC Mix VBG pCO2 Pt Tmp 29.8 L O2 Delivery Device Not entered Radiography Diagnostic Testing: Clinical Impression(s) from Imaging Studies Brain CT 07/30/23 14:03 IMPRESSION: No acute intracranial process. Electronically Signed: Bobo Barrientos MD at 15:03 EDT Reading Location ID and State: [facility] / [place] Tel , Service support , Cervical Spine CT 07/30/23 14:03 IMPRESSION: 1. No evidence of acute cervical spinal fracture or spondylolisthesis. 2. Degenerative changes as described above. 3. Straightening of the cervical spine which could be due to muscle spasm. Electronically Signed: Bobo Barrientos MD at 15:07 EDT Reading Location ID and State: [facility] / [place] Tel , Service support , Chest X-Ray 07/30/23 14:03 IMPRESSION: Bilateral lower lungs infiltrates could be due to pneumonia or edema. Electronically Signed: Bobo Barrientos MD at 15:13 EDT , Facial/Sinus 07/30/23 14:03 IMPRESSION: No evidence of acute fracture of the facial bones. Electronically Signed: Bobo Barrientos MD at 15:12 EDT , Shoulder X-Ray 07/30/23 14:03 IMPRESSION: Fracture of the greater tuberosity more displaced than the previous exam. Electronically Signed: Bobo Barrientos MD at 15:15 EDT , Chest CTA 07/30/23 14:59 IMPRESSION: 1. Pulmonary embolism in the distal left main pulmonary artery extending to the proximal left upper lobe branch. 2. Extensive patchy bilateral infiltrates predominantly in the lower lungs concerning for multifocal pneumonia. Follow-up examination is suggested. 3. Underlying chronic changes and bronchiectatic changes. 4. Mediastinal and right hilar adenopathy which could be reactive. Electronically Signed: Bobo Barrientos MD at 15:38 EDT , ADDENDUM: 07/30/23 1554 IMPRESSION: 1. Pulmonary embolism in the distal left main pulmonary artery extending to the proximal left upper lobe branch. 2. Extensive patchy bilateral infiltrates predominantly in the lower lungs concerning for multifocal pneumonia. Follow-up examination is suggested. 3. Underlying chronic changes and bronchiectatic changes. 4. Mediastinal and right hilar adenopathy which could be reactive. N.B. : The above Results were Read Back by Bobo Barrientos MD to Tony Haque NP, and understanding confirmed on 07/30/2023 15:47:35 (ET). Electronically Signed: Bobo Barrientos MD at 15:38 EDT , EKG Normal sinus rhythm: Attestation: I personally reviewed and interpreted this EKG as follows: Comments: Normal sinus rhythm, rate of 89 bpm, ME interval 144 ms, QRS duration 72 ms, no acute ST elevation, no acute infarct noted. Treatment and Re-Evaluation :: Differential diagnosis includes however is not limited to: Polypharmacy overdose, syncopal episode, intracranial bleeding, skull fracture, sepsis, metabolic encephalopathy Patient does appear to be lethargic, patient does answer to verbal stimuli. Patient appears unkempt. Patient does show signs of trauma with ecchymosis hematoma to the left head, abrasions. Patient will receive a significant workup concerning for multiple etiologies. Patient received a CT scan of the brain and cervical spine as well as the face. Patient received a chest x-ray along pne umonia, pleural effusion, laboratory values looking for any electrode abnormality, leukocytosis, lactic acid, troponin, urine as well as urine drug screen will be ordered. Patient be given IV fluids to see if this will help her blood pressure. I do believe for my initial evaluation the patient will need to be admitted to hospital. Straight cath will be ordered. All radiologic examinations were read, reviewed by the emergency department attending. From these reads, a plan of care will be put in place. Patient also receive a repeat x-ray of the right shoulder secondary to history of fracture. Patient will be reevaluated. Patient's laboratory values show no leukocytosis, slight anemia with hemoglobin of 10.9, patient's D-dimer was grossly elevated at 3.19, chemistries show some renal sufficiency with a creatinine of 1.74, GFR 31, patient's lactic acid was elevated at 3.4, ammonia was negative. Patient's troponin was 6 which is negative. Patient is positive for benzodiazepines, she does take clonazepam. Patient CT scan of the brain, cervical spine as well as the facial bones were all negative. I did receive a call from the radiologist regarding the CTA of the chest, patient does have some pulmonary embolism in the distal left main pulmonary artery extending to the proximal left upper lobe branch. Extensive patchy bilateral infiltrates predominantly in the lower lungs concerning for multifocal pneumonia, underlying chronic changes, secondary this finding, patient placed on antibiotics, patient will need to be admitted to the hospital. I will speak with the hospitalist regarding which anticoagulation they would like to use. After speaking with the hospitalist, the patient be admitted to PCU. Patient be started on Rocephin, Flagyl, this will cover both pneumonia as well as aspiration pneumonia. Patient will also be started on Eliquis 10 mg for the PE. Stable for admission <Dr. Guilherme Collins MD - Last Filed: 07/30/23 15:56> [facility] Narrative Medical decision making narrative: I have personally performed a face to face assessment of the patient and have reviewed the AUGUSTINE Note. I performed a substantive portion of the visit including all aspects of the following. My ramirez findings include: History is 73-year-old female fell at 4 in the morning and again at 115 this afternoon. Has a history of chronic back problems as had major back surgery. Is on pain medication at home. states on the second fall he found her out in the garage laying facedown on the floor. She does not believe she lost conscious. She denies being on any blood thinners. She is also running low blood pressure and a low pulse ox. She does have a history of prior aspiration they want to place a PEG tube but she did not want a feeding tube put in. states she is also had decreased oral intake lately. Exam is [physical exam initial blood pressure 83/46. O2 sat 79% on room air 97% on 4 L. She is hypoxic without oxygen. H EENT exam pupils round react to light. She has abrasions and contusions on her face from when she fell. Neck nontender. Back nontender. No bruising. Lungs diminished in both bases. Ribs and chest wall nontender. No bruising or crepitance. Heart tachycardic rate of 105. Do not appreciate a murmur. Abdomen soft and nontender. Pelvic girdle intact. Moving all 4 extremities. Normal sourcing analyst strength. She has tenderness to her right shoulder that is from a prior fall she had a humeral head avulsion fracture. Moving both lower extremities. No shortening or rotation nontender. Neurologically she is awake and alert no focal motor deficits.] Medical Decision Making [73-year-old female with 2 falls in under 12 hours at home. Has head trauma. She will receive a CT of her brain, face and neck to rule out intracranial bleed or fractures. Screening labs due to the falls and hypotension. She will need to be admitted. Patient received IV fluids for dehydration.] Other additions or changes: [None] History & Record Review Discussion w/independent historian: Patient and Significant other Additional record(s) reviewed:: Prior inpatient record, Prior outpatient record, Prior ED visit and Prior labs Lab Data Attestation: I reviewed the patient's lab results. Lab results narrative: 6 CBC shows white count 9. H&H of 10.9 and 33.8. Platelets 317. Troponin 6. UA negative. Talk screen positive for benzos only. Chest x-ray bilateral infiltrates could be consistent with bilateral aspiration pneumonia. Labs: Laboratory Results - last 24 hr 07/30/23 07/30/23 07/30/23 13:45 14:25 15:00 WBC 9.0 RBC 3.49 L Hgb 10.9 L Hct 33.8 L MCV 96.8 MCH 31.2 MCHC 32.2 RDW Std Deviation 48.8 H RDW Coeff of Mehnaz 13.7 Plt Count 317 MPV 10.6 Immature Gran % (Auto) 0.700 Neut % (Auto) 81.8 H Lymph % (Auto) 8.8 L Fent[place] % (Auto) 8.2 Eos % (Auto) 0.2 Baso % (Auto) 0.3 Absolute Neuts (auto) 7.4 Absolute Lymphs (auto) 0.79 L Nucleated RBC % 0 Differential Comment Diff Path Review May foll Smudge Cells 1+ H D-Dimer Quant (PE/DVT) 3.19 H* Sodium 139 Potassium 3.4 L Chloride 108 H Carbon Dioxide 22.0 Anion Gap 9 BUN 21 H Creatinine 1.74 H Estim Creat Clear Calc 22.77 Est GFR (MDRD) Af Amer 37 L Est GFR (MDRD) Non-Af 31 L BUN/Creatinine Ratio 12.1 Glucose 110 H Lactic Acid 3.4 H* Calcium 8.6 Ammonia 27.0 Troponin I High Sens 6 Urine Color Yellow Urine Clarity Clear Urine pH 5.0 Ur Specific Redmond 1.020 Urine Protein 15 H Urine Glucose (UA) Normal Urine Ketones 5 H Urine Occult Blood Negative Urine Nitrite Negative Urine Bilirubin 1 H Urine Urobilinogen 1 H Ur Leukocyte Esterase 25 H Urine RBC 0 SEEN Urine WBC 0 SEEN Ur Squamous Epith Cells 0 SEEN Urine Bacteria 0 SEEN Urine Mucus 0 SEEN Urine Opiates Screen NEGATIVE Urine Methadone Screen NEGATIVE Ur Barbiturates Screen NEGATIVE Ur Phencyclidine Scrn NEGATIVE Ur Amphetamines Screen NEGATIVE MDMA (Ecstasy) Screen NEGATIVE U Benzodiazepines Scrn POSITIVE H Urine Cocaine Screen NEGATIVE U Cannabinoids Screen NEGATIVE Ur Drug Screen Comment ABG Data ABG results: ABG 07/30/23 14:27 Specimen Type PEYTON Sample Site Not entered O2 % 21.0 VBG pH 7.47 H VBG pO2 73 H VBG HCO3 22 VBG Total CO2 23 VBG O2 Sat (Calc) 96 H VBG Base Excess -2 L POC Mix VBG pCO2 Pt Tmp 29.8 L O2 Delivery Device Not entered Radiography Diagnostic Testing: Clinical Impression(s) from Imaging Studies Brain CT 07/30/23 14:03 IMPRESSION: No acute intracranial process. Electronically Signed: Bobo Barrientos MD at 15:03 EDT Reading Location ID and State: [facility] / [place] Tel , Service support , Cervical Spine CT 07/30/23 14:03 IMPRESSION: 1. No evidence of acute cervical spinal fracture or spondylolisthesis. 2. Degenerative changes as described above. 3. Straightening of the cervical spine which could be due to muscle spasm. Electronically Signed: Bobo Barrientos MD at 15:07 EDT Reading Location ID and State: [facility] / [place] Tel , Service support , Chest X-Ray 07/30/23 14:03 IMPRESSION: Bilateral lower lungs infiltrates could be due to pneumonia or edema. Electronically Signed: Bobo Barrientos MD at 15:13 EDT Reading Location ID and State: [facility] / [place] Tel , Service support , Facial/Sinus 07/30/23 14:03 IMPRESSION: No evidence of acute fracture of the facial bones. Electronically Signed: Bobo Barrientos MD at 15:12 EDT , Shoulder X-Ray 07/30/23 14:03 IMPRESSION: Fracture of the greater tuberosity more displaced than the previous exam. Electronically Signed: Bobo Barrientos MD at 15:15 EDT , Chest CTA 07/30/23 14:59 IMPRESSION: 1. Pulmonary embolism in the distal left main pulmonary artery extending to the proximal left upper lobe branch. 2. Extensive patchy bilateral infiltrates predominantly in the lower lungs concerning for multifocal pneumonia. Follow-up examination is suggested. 3. Underlying chronic changes and bronchiectatic changes. 4. Mediastinal and right hilar adenopathy which could be reactive. Electronically Signed: Bobo Barrientos MD at 15:38 EDT , ADDENDUM: 07/30/23 1554 IMPRESSION: 1. Pulmonary embolism in the distal left main pulmonary artery extending to the proximal left upper lobe branch. 2. Extensive patchy bilateral infiltrates predominantly in the lower lungs concerning for multifocal pneumonia. Follow-up examination is suggested. 3. Underlying chronic changes and bronchiectatic changes. 4. Mediastinal and right hilar adenopathy which could be reactive. N.B. : The above Results were Read Back by Bobo Barrientos MD to Tony Haque NP, and understanding confirmed on 07/30/2023 15:47:35 (ET). Electronically Signed: Bobo Barrientos MD at 15:38 EDT , Chest x-ray, portable, single view, interpreted by myself and the radiologist shows bilateral lower lobe infiltrates consistent with bilateral aspiration pneumonia. Right shoulder x-ray chronic changes in the humeral head avulsion fracture seen on prior films. Interpreted by myself and the radiologist. <Dr. Guilherme Collins MD - Last Filed: 07/30/23 15:56> Critical Care Time Critical Care Time: Yes Critical care time (excluding procedures): 30-74 minutes, Including time spent:, Discussing w/Patient &/or Family/Compounding And Finishing Supervisor, Discussing w/Consultants, Arranging Admission or Transfer, Performing Direct Patient Care at Bedside and - (35 minutes) Discharge Plan Dx/Rx/DC Orders Clinical Impression: Acute kidney injury, Acute hypotension, Acute dehydration, Closed head injury, Aspiration pneumonia, Hypoxia, Pulmonary emboli, Falls, Fracture of humeral head Disposition Disposition: Acute Care [facility]
[2023-07-30 14:16] LABS: Absolute Lymphocyte Count 0.79 X10^3/uL (0.83-4.51); Absolute Neutrophil Count 7.4 X10^3/uL (2.0-7.7); Basophil# 0.03 X10^3/uL; Basophil% 0.3 % (0-1); Eosinophil# 0.02 X10^3/uL; Eosinophils% 0.2 % (0-5); Hematocrit 33.8 % (37-47); Hemoglobin 10.9 g/dL (12.0-15.0); Lymphocyte # 0.79 X10^3/ul (0.83-4.51); Lymphocyte % 8.8 % (19-41); Mean Corp Hgb Conc 32.2 g/dL (32-36); Mean Corpuscular Hgb 31.2 pg (27.0-32.0); Mean Corpuscular Volume 96.8 fL (81-99); Mean Platelet Vol. 10.6 fl (6.2-12.0); Monocyte# 0.74 X10^3/uL; Monocyte% 8.2 % (0-10); NRBC Flagged by Analyzer 0 % (0-5); Neutrophil # 7.37 X10^3/uL (2.7-7.7); Neutrophil % 81.8 % (47-70); POSITIVE MORPHOLOGY YES; Platelet Count 317 K/mm3 (150-450); RBC Distribution Width CV 13.7 % (11.6-14.6); RBC Distribution Width SD 48.8 fl (35.1-43.9); Red Blood Count 3.49 M/mm3 (4.2-5.4)
[2023-07-30 14:29] LABS: Differential Indicated SCAN CRITERIA MET
[2023-07-30] MEDS: 0.9% Normal Saline (1000mL) 1,000 ML 999 ML IV ×2 (14:29→15:50)
[2023-07-30 14:30] LABS: Blood Gas Specimen Type VEN; O2 Delivery Device Not entered; SITE Not entered; VBG BASE EXCESS -2 mmol/L (-1.0-3.5); VBG Bicarbonate 22 mmol/L (22-26); VBG PO2 73 mmHg (25-40); VBG SO2 96 % (50-70); VBG TCO2 23 mmol/L (23-33); VBG pCO2 29.8 mmHg (41-51); VBG pH 7.47 (7.32-7.42)
[2023-07-30 14:33] LABS: Anion Gap 9 (5-15); BUN 21 mg/dL (7-18); BUN/Creat Ratio 12.1 RATIO (10-20); Calcium,Total 8.6 mg/dL (8.5-10.1); Chloride 108 mmol/L (98-107); Creatinine, Serum 1.74 mg/dL (0.55-1.02); EST Glomerular Filtration Rate 31 mL/min (>60); Est Glom Filt Rate - Afr Amer 37 mL/min (>60); Estimated Creatinine Clearance 22.77 ml/min; Glucose 110 mg/dL (74-106); Potassium 3.4 mmol/L (3.5-5.1); Sodium Level 139 mmol/L (136-145); Troponin-I HS 6 pg/mL (3.0-54.0)
[2023-07-30 14:37] LABS: D-Dimer Quantitative (DVT/PE) 3.19 FEU/ug/m (0.27-0.49)
[2023-07-30 14:42] LABS: Lactic Acid 3.4 mmol/L (0.4-1.9)
--- NOTE | 2023-07-30 14:59 | CT_ITS ---
We are attempting to reach an attending provider to discuss findings. An addendum with communication details will be sent when the communication is complete. STUDY: CTA CHEST REASON FOR EXAM: Female, 73 years old. Shortness of breath RADIATION DOSAGE (If Supplied By Facility): CTDIvol = ( 18.29 ) mGy, DLP = ( 1251.40 ) mGycm TECHNIQUE: The examination was performed with the intravenous administration of IV 100mL Isovue-370. Post-processing of the angiographic images was performed, with multiplanar reformation and 3D reconstruction. Individualized dose optimization techniques were used for this CT. COMPARISON: No relevant prior comparison study available FINDINGS: Normal enhancement of the main pulmonary artery and right and left pulmonary arteries. Filling defects in the distal left main pulmonary artery extending to the proximal branch of left upper lobe pulmonary artery. Atherosclerotic calcifications of the aortic arch and descending thoracic aorta without evidence of aneurysm. There is no demonstrated definite aortic dissection. Normal heart and pericardium. There are calcifications of the coronary arteries. Prominent subcarinal nodes. Enlarged nodes in the right hilar region. Normal visualized trachea and bronchi. Patchy infiltrates in the right middle lobe and bilateral lower lobes as well as the right upper lobe. Underlying chronic bronchiectatic changes predominantly in the right middle lobe and lingula. There are no pleural effusions. Normal chest wall structures. Management wires entering the thecal sac at the level of T9-T10. No demonstrated acute changes in the visualized upper abdomen. CT/CTA Chest W/WO Contrast IMPRESSION: 1. Pulmonary embolism in the distal left main pulmonary artery extending to the proximal left upper lobe branch. 2. Extensive patchy bilateral infiltrates predominantly in the lower lungs concerning for multifocal pneumonia. Follow-up examination is suggested. 3. Underlying chronic changes and bronchiectatic changes. 4. Mediastinal and right hilar adenopathy which could be reactive. Electronically Signed: Bobo Barrientos MD at 15:38 EDT ,
[2023-07-30 15:03] LABS: Smudge Cells 1+
[2023-07-30 15:07] LABS: Bacteria 0 SEEN /hpf (None Seen); Mucous, Urine 0 SEEN /hpf (<or=2+); Red Blood Cells-Urine 0 SEEN /hpf (0-5); Squamous Epithelial Cells - UA 0 SEEN /hpf (5-10); White Blood Cells 0 SEEN /hpf (0-5)
[2023-07-30 15:10] LABS: Color, Urine Yellow (Yellow); Glucose, Dipstick Normal (Normal); Ketone-Dipstick 5 mg/dl (Negative); Leukocyte Esterase-Dipstick 25 /ul (Negative); Nitrite-Dipstick Negative (Negative); Occult Blood-Urine Negative /ul (Negative); Protein-Dipstick 15 mg/dl (Negative); Urine Clarity Clear (Clear); Urine Urobilinogen 1 mg/dl (Normal)
[2023-07-30 15:16] LABS: Urine Bilirubin Dipstick 1 mg/dL (Negative)
[2023-07-30 15:32] LABS: Amphetamine Urine VISTA NEGATIVE (<1000 ng/mL); Barbiturate Urine VISTA NEGATIVE (< 200 ng/mL); Benzodiazepine Urine VISTA POSITIVE (< 200 ng/mL); Cocaine Urine VISTA NEGATIVE (< 300 ng/mL); Ecstacy Urine VISTA NEGATIVE (< 500 ng/mL); Methadone Urine VISTA NEGATIVE (< 300 ng/mL); PCP Urine VISTA NEGATIVE (< 25 ng/mL); THC Urine VISTA NEGATIVE (< 50 ng/mL); Vista UDS pH Range 5
--- NOTE | 2023-07-30 16:38 | PCM.HP.STD ---
HPI - General General Date of Admission: 07/30/23 Date of Service: 07/30/23 Chief Complaint: Confusion, fall, hypoxia. HPI Narrative The patient is a 73 y/o F w/ PMHx: Asthma, Anxiety and Depression, Tobacco use (cigarette tobacco use-->transitioned to vaping), HTN, HLD, IBS, GERD, Chronic gastroparesis, Migraines who presents to the [facility] ED on 07/30/23 with history of frequent falls with reported altered mental status per found on the ground in the living room early in the morning with unclear fall history as patient does sleep on the couch but she was found on the floor but eventually seemed to improve some but later in the day he heard her screaming and found her face down in the garage with abrasions to her face more sluggish and sleepy prompting EMS call and transport to the ED for evaluation. Patient does report mild cough and some dyspnea worse with exertion as well as congestion over the last 2 to 3 weeks with increased fatigue and malaise. She notes that her has been healthy with no similar symptoms. Patient denies any chest pain. Workup in the ED included T97.2, heart 107, BP 83/46, respiratory rate 20, initially 79% on room air eventually transitioning to 6 L nasal cannula with improvement up to 87% with most recent repeat vital signs heart rate 88, BP 100/57, respiratory rate 16, 98% on 2 L nasal cannula, CBC with WC 9.0, hemoglobin 10.9, MCV 96.8, platelet 317 with lymphopenia, D-dimer 3.19, VBG with pH 7.47, pO2 73, bicarb 22, ammonia 27, troponin 6, lactic acid 3.4, BMP with potassium 3.4, chloride 108, BUN/creatinine 21/1.74, GFR 31, glucose 110, urinalysis with specific gravity 1.020, protein 15, ketone 5, occult blood negative, nitrate negative, leukocyte Estrace 25 with no obvious evidence of TI, UDS with positive benzodiazepine, CT of the brain with no acute intracranial findings, CT cervical spine with no evidence of acute cervical spinal fracture or spondylolisthesis, degenerative changes, chest x-ray with bilateral lower lung infiltrates possibly pneumonia versus edema, CT maxillofacial with no evidence of any acute facial fracture, plain film of the right shoulder with a fracture of the greater tuberosity more displaced than previously, CTPA with pulmonary embolism in the distal left main pulmonary artery extending to the proximal left upper lobe branch, extensive patchy bilateral infiltrates predominantly in the lower lungs concerning for multifocal pneumonia, underlying chronic changes and bronchiectatic changes, mediastinal and right hilar adenopathy possibly reactive. In the ED patient ministered 2 L normal saline. In the ED patient administered IV rocephin, IV flagyl (initially noted concern for aspiration but patient denies any history, no issues with coughing with oral intake), oral eliquis loading dose. [facility] Medical History (Updated 07/30/23 @ 19:[address] Anastasia Khan MD) Allergic rhinitis Ambulates with cane Anxiety and depression Arthritis Back pain Carpal tunnel syndrome on both sides Cervical stenosis of spine Chronic cough Chronic lower back pain COVID-19 Dysphagia Former smoker Gastric reflux Gastroparesis High cholesterol History of stress test HLD (hyperlipidemia) Hypertension Insomnia Irritable bowel syndrome without diarrhea Migraine headache Movement disorder Pain from implanted hardware Post-menopausal Scoliosis of lumbar spine Segmental and somatic dysfunction of lumbar region Segmental and somatic dysfunction of pelvic region Segmental dysfunction of thoracic region Shortness of breath on exertion Stenosis, cervical spine Uses wheelchair Vitamin D deficiency Walker as ambulation aid Wears dentures Wears glasses Wears hearing aid Home Medications buspirone 7.5 mg tablet 7.5 mg PO BID Check with primary doctor 02/17/20 [History Last Taken 04/26/22] clonazepam 1 mg tablet 1 mg PO TID anxiety 02/17/20 [History Last Taken 04/26/22] gabapentin 400 mg capsule 400 mg PO Q6H Check with primary doctor 04/20/22 [History Last Taken 04/26/22] acetaminophen 325 mg tablet 650 mg (2 x 325 mg) PO Q6H PRN PRN Pain 1-10 Or Fever >100.7 #0 tabs 08/02/22 [Rx Last Taken Unknown] tramadol 50 mg tablet 50 mg PO Q6H PRN pain 3 days #12 tabs 03/17/23 [Rx Last Taken Unknown] doxepin 150 mg capsule 150 mg PO QHS 07/30/23 [History Last Taken Unknown] metoprolol succinate 25 mg tablet,extended release 24 hr 25 mg PO DAILY 07/30/23 [History Last Taken Unknown] omeprazole 20 mg capsule,delayed release 20 mg PO DAILY 07/30/23 [History Last Taken Unknown] Allergy/AdvReac Type Severity Reaction Status Date / Time hydrocodone [From Vicodin] Allergy NERVOUS, Verified 07/30/23 13:37 JITTERY Penicillins Allergy Rash Verified 07/30/23 13:37 Family History Mother Hypertension CVA (cerebral vascular accident) Heart disease Cerebral hemorrhage Father Cancer Hx stomach cancer and leukemia. Surgical History History of 2 sections History of cardiac catheterization History of lumbar laminectomy Hx of dilation and curettage Hx of surgical procedure Social History household members: spouse housing: house number of children: 2 Smoking Status: Current every day smoker tobacco type: e-cigarettes alcohol intake: never substance use type: does not use what type of physical activity do you participate in: none additional social history: Currently ambulating with a cane ROS ROS Narrative Admission Review of Systems: CONSTITUTIONAL: No weight loss, fever, chills, + weakness or fatigue. HEENT: + Congestion, rhinorrhea, sore throat. Eyes: No visual loss, blurred vision, double vision or yellow sclerae. Ears, Nose, Throat: No hearing loss, sneezing. SKIN: No rash or itching, lesions, wounds. CARDIOVASCULAR: No chest pain, chest pressure or chest discomfort, palpitations, edema, orthopnea, syncopal events. RESPIRATORY: + Dyspnea, cough without marked sputum production. No wheezing, hemoptysis. GASTROINTESTINAL: + Anorexia, chronic gastroparesis. No nausea, vomiting or diarrhea, abdominal pain, melena, BRBPR. GENITOURINARY: No dysuria, frequency, urgency or retention. NEUROLOGICAL: + Frequent falls, chronic back pain, chronic headaches. No dizziness, syncope, paralysis, ataxia, numbness or tingling in the extremities, focal weakness, change in bowel or bladder control, seizure. MUSCULOSKELETAL: + muscle, back pain, joint pain or stiffness. HEMATOLOGIC: + Chronic anemia with easy bleeding/bruising. LYMPHATICS: No enlarged nodes. No history of splenectomy. PSYCHIATRIC: History of anxiety and depression.+ ENDOCRINOLOGIC: No reports of sweating, cold or heat intolerance. No polyuria or polydipsia. ALLERGIES: No history of asthma, hives, eczema or rhinitis. Vital Signs Vital Signs Vital Signs: 07/30/23 13:35 07/30/23 13:37 07/30/23 13:45 Temperature 97.2 F L Temperature Source Temporal Pulse Rate 107 H Respiratory Rate 20 H Respiratory Effort Respiratory Depth Respiratory Pattern Blood Pressure 83/46 L Blood Pressure Mean 58 Pulse Ox 79 87 89 Oxygen Delivery Method Room Air Nasal Cannula Nasal Cannula Oxygen Flow Rate (L/min) 6 4 07/30/23 13:46 07/30/23 14:28 07/30/23 15:11 Temperature Temperature Source Pulse Rate Respiratory Rate Respiratory Effort Normal Non-Labored Respiratory Depth Normal Respiratory Pattern Irregular Blood Pressure Blood Pressure Mean Pulse Ox 97 Oxygen Delivery Method Nasal Cannula Nasal Cannula Nasal Cannula Oxygen Flow Rate (L/min) 6 6 4 07/30/23 15:50 07/30/23 15:00 07/30/23 16:00 Temperature Temperature Source Pulse Rate 90 93 88 Respiratory Rate 21 H 21 H 16 Respiratory Effort Respiratory Depth Respiratory Pattern Blood Pressure 91/52 L 86/43 L 100/57 L Blood Pressure Mean 65 57 71 Pulse Ox 95 97 98 Oxygen Delivery Method Nasal Cannula Nasal Cannula Non-Rebreather Oxygen Flow Rate (L/min) 2 4 2 07/30/23 16:36 Temperature 98.2 F Temperature Source Pulse Rate 87 Respiratory Rate 17 Respiratory Effort Respiratory Depth Respiratory Pattern Blood Pressure 95/59 L Blood Pressure Mean 71 Pulse Ox 95 Oxygen Delivery Method Oxygen Flow Rate (L/min) Weight Weight: 122 lb 9.232 oz Body Mass Index (BMI) 22.4 Physical Exam Narrative Physical Examination: General: Awake, alert, oriented x [address], year, month, remains cooperative, laying in the ED bed, fatigued and ill-appearing. Skin: Normal color, normal turgor, no icterus, no cyanosis except for various abrasions, staged ecchymoses especially right shoulder. HEENT: AT/NC, EOMI, PERRLA, dry MM, no carotid bruits or JVD noted. Lungs: Diminished, mildly rhonchorous, no evidence of any distress, no rales or wheezing. Heart: Regular rate and rhythm; no gallop, rub audible. Abdomen: Soft, NTTP, ND, mildly hyperactive BS, no appreciated HSM. Extremities: No cyanosis, no clubbing, see skin, right upper extremity with peripheral pulses intact, ecchymoses staged as noted, of note not in sling and moving her arm freely in the bed. Neurological: Patient awake, alert, oriented as noted, cognitive function currently appears baseline intact; pupils equally reactive to light and accommodation, cranial nerves grossly normal, moving all 4 extremities although encourage patient strongly to stop moving her right upper extremity and keep it near her body with no weightbearing given fracture, strength moderately to severely globally decreased secondary to acute presentation. Psychiatric: Affect appears fatigued, ill appearing, no acute evidence of depressive or anxiety feelings but does have underlying history. Results Lab / Micro Data 07/30/23 13:45 07/30/23 13:45 Labs: Laboratory Results - last 24 hr 07/30/23 13:45: WBC 9.0, RBC 3.49 L, Hgb 10.9 L, Hct 33.8 L, MCV 96.8, MCH 31.2, MCHC 32.2, RDW Std Deviation 48.8 H, RDW Coeff of Mehnaz 13.7, Plt Count 317, MPV 10.6, Immature Gran % (Auto) 0.700, Neut % (Auto) 81.8 H, Lymph % (Auto) 8.8 L, [place] % (Auto) 8.2, Eos % (Auto) 0.2, Baso % (Auto) 0.3, Absolute Neuts (auto) 7.4, Absolute Lymphs (auto) 0.79 L, Nucleated RBC % 0, Differential Comment , Diff Path Review May foll, Smudge Cells 1+ H, D-Dimer Quant (PE/DVT) 3.19 H*, Sodium 139, Potassium 3.4 L, Chloride 108 H, Carbon Dioxide 22.0, Anion Gap 9, BUN 21 H, Creatinine 1.74 H, Estim Creat Clear Calc 22.77, Est GFR (MDRD) Af Amer 37 L, Est GFR (MDRD) Non-Af 31 L, BUN/Creatinine Ratio 12.1, Glucose 110 H, Lactic Acid 3.4 H*, Calcium 8.6, Troponin I High Sens 6 07/30/23 14:25: Ammonia 27.0 07/30/23 15:00: Urine Color Yellow, Urine Clarity Clear, Urine pH 5.0, Ur Specific [place] 1.020, Urine Protein 15 H, Urine Glucose (UA) Normal, Urine Ketones 5 H, Urine Occult Blood Negative, Urine Nitrite Negative, Urine Bilirubin 1 H, Urine Urobilinogen 1 H, Ur Leukocyte Esterase 25 H, Urine RBC 0 SEEN, Urine WBC 0 SEEN, Ur Squamous Epith Cells 0 SEEN, Urine Bacteria 0 SEEN, Urine Mucus 0 SEEN, Urine Opiates Screen NEGATIVE, Urine Methadone Screen NEGATIVE, Ur Barbiturates Screen NEGATIVE, Ur Phencyclidine Scrn NEGATIVE, Ur Amphetamines Screen NEGATIVE, MDMA (Ecstasy) Screen NEGATIVE, U Benzodiazepines Scrn POSITIVE H, Urine Cocaine Screen NEGATIVE, U Cannabinoids Screen NEGATIVE, Ur Drug Screen Comment Micro: Microbiology 07/30/23 14:25 Mucosa - Nose SARS-CoV-2, Influenza & RSV (PCR) - Final ABG Data ABG results: ABG 07/30/23 14:27 Specimen Type [place] Sample Site Not entered O2 % 21.0 VBG pH 7.47 H VBG pO2 73 H VBG HCO3 22 VBG Total CO2 23 VBG O2 Sat (Calc) 96 H VBG Base Excess -2 L POC Mix VBG pCO2 Pt Tmp 29.8 L O2 Delivery Device Not entered Imaging Radiology Impression Brain CT 07/30/23 14:03 IMPRESSION: No acute intracranial process. Electronically Signed: Bobo Barrientos MD at 15:03 EDT , Cervical Spine CT 07/30/23 14:03 IMPRESSION: 1. No evidence of acute cervical spinal fracture or spondylolisthesis. 2. Degenerative changes as described above. 3. Straightening of the cervical spine which could be due to muscle spasm. Electronically Signed: Bobo Barrientos MD at 15:07 EDT , Chest X-Ray 07/30/23 14:03 IMPRESSION: Bilateral lower lungs infiltrates could be due to pneumonia or edema. Electronically Signed: Bobo Barrientos MD at 15:13 EDT , Facial/Sinus 07/30/23 14:03 IMPRESSION: No evidence of acute fracture of the facial bones. Electronically Signed: Bobo Barrientos MD at 15:12 EDT , Shoulder X-Ray 07/30/23 14:03 IMPRESSION: Fracture of the greater tuberosity more displaced than the previous exam. Electronically Signed: Bobo Barrientos MD at 15:15 EDT , Chest CTA 07/30/23 14:59 IMPRESSION: 1. Pulmonary embolism in the distal left main pulmonary artery extending to the proximal left upper lobe branch. 2. Extensive patchy bilateral infiltrates predominantly in the lower lungs concerning for multifocal pneumonia. Follow-up examination is suggested. 3. Underlying chronic changes and bronchiectatic changes. 4. Mediastinal and right hilar adenopathy which could be reactive. Electronically Signed: Bobo Barrientos MD at 15:38 EDT Reading Location ID and State: [facility] / CT Tel , Service support , ADDENDUM: 07/30/23 1554 IMPRESSION: 1. Pulmonary embolism in the distal left main pulmonary artery extending to the proximal left upper lobe branch. 2. Extensive patchy bilateral infiltrates predominantly in the lower lungs concerning for multifocal pneumonia. Follow-up examination is suggested. 3. Underlying chronic changes and bronchiectatic changes. 4. Mediastinal and right hilar adenopathy which could be reactive. N.B. : The above Results were Read Back by Bobo Barrientos MD to Tony Haque NP, and understanding confirmed on 07/30/2023 15:47:35 (ET). Electronically Signed: Bobo Barrientos MD at 15:38 EDT , Assessment & Plan Assessment/Plan (1) Pulmonary emboli: (2) Pneumonia: (3) Hypoxia: PLAN: Plan The patient is a 73 y/o F w/ PMHx: Asthma, Anxiety and Depression, Tobacco use (cigarette tobacco use-->transitioned to vaping), HTN, HLD, IBS, GERD, Chronic gastroparesis, Migraines who presents to the [facility] ED on 07/30/23 with history of frequent falls with reported altered mental status per found on the ground in the living room early in the morning with unclear fall history as patient does sleep on the couch but she was found on the floor but eventually seemed to improve some but later in the day he heard her screaming and found her face down in the garage with abrasions to her face more sluggish and sleepy prompting EMS call and transport to the ED for evaluation. #1. Acute Hypoxia secondary to Acute BL Multifocal Pneumonia, Unclear organism with possibly initially Acute Viral Syndrome now with superimposed bacterial PNA and concurrently #2: Will admit to PCU, maintain on oxygen with wean as tolerated to room air, continue ATC budesonide, PRN albuterol, maintain on IV Rocephin and Azithromycin, HOB, IS parameters w/ pending sputum cultures, full respiratory viral panel and urine antigens. PT/OT/ST to be cautious/CM consultations for discharge planning. #2. Acute Pulmonary Embolism: EKG without acute findings, CTPA with pulmonary embolism as well as evidence of pneumonia as noted above #1, initial troponin normal, will obtain BNP, will obtain ECHO, maintain on telemetry monitoring, will obtain echocardiogram. #3. Acute kidney injury: Admission BUN/Cr 21/1.74, GFR 31, prior baseline creatinine noted to be primarily 0.6-0.9, most recently 07/11/23 creatinine 0.96, will hydrate, hold nephrotoxic medications and repeat chemistry in AM. If not improving or worsening low threshold to obtain FeNa and renal ultrasound assessment. #4. Displaced fracture of the greater tuberosity right shoulder, worsened: Hx fall 07/25/23 with known fracture with planned evaluation per Dr. Lee outpatient however had this presentation. Patient with recurrent mechanical fall with plain film noting fracture of the greater tuberosity more displaced than previously, maintain nonweightbearing, sling, icing, as needed pain regimen cautiously. Will request consultation with Dr. Lee given increased displacement to be cautious. #5. Hypokalemia: Admission K+ 3.4, magnesium level requested, supplementation given, repeat level in AM. #6. Cigarette Tobacco Abuse-->transitioned to vaping: Encouraged cessation, inpatient consultation per RT, NR if desired. #7. Chronic normocytic anemia: Admission hemoglobin 10.9, MCV 96.8, baseline hemoglobin appears 10-12, stable, continue to trend. #8. GERD: Continue home PPI. #9. DVT Prophylaxis: Will maintain initiated on eliquis. #10. CODE status: Patient SUNITA is her and living will is currently in place. Discussed CODE status at length including difference between FULL code, DNR-CCA and DNR-CC status. Following discussions about the differences in these status, requested Full Code status. Advanced Care Planning Face to Face Time: 16 minutes. Charges/Coding Visit Charges Inpatient E&M: 02225 Init Hosp L3 Procedures Hospitalists Procedures: 21831 Advncd Care Plan 30 Min
[2023-07-30] MEDS: Ceftriaxone 1 GM/50 ML BAG IV (17:10)
[2023-07-30] MEDS: metroNIDAZOLE 500 MG/100 ML BAG 100 MG IV (17:40)
[2023-07-30 18:01] LABS: Magnesium 1.7 mg/dL (1.6-2.6)
[2023-07-30 18:12] LABS: Reflex Lactate? Y
[2023-07-30 18:18] LABS: BNP,B-Type NATRIURETIC PEPTIDE 88.3 pg/mL (0-100)
--- NOTE | 2023-07-30 19:04 | ECHOD_ITS ---
Reason For Study: PE Procedure This was a 2D Doppler, Color Flow transthoracic echocardiogram. Exam performed portable in patient room. Left Ventricle Normal LV size. Left ventricular systolic function is normal. The estimated ejection fraction is 60 %. Normal diastololic function. Right Ventricle Normal RV size. Normal systolic function. Atria The left and right atria are normal. Mitral Valve The mitral valve is structurally normal. No prolapse or stenosis seen. Trivial mitral valve insufficiency. Tricuspid Valve Normal tricuspid valve. Mild (1+) tricuspid valve insufficiency. Pulmonary artery systolic pressure is 29 mmHg. Aortic Valve Trisinus/trileaflet aortic valve. Pulmonic Valve Normal pulmonic valve. Trivial pulmonic valve insufficiency. Great Vessels Normal aortic root. Pericardium/Pleural No pericardial effusion. MMode/2D Measurements & Calculations LVIDd: 4.2 cm IVSd: 0.89 cm Ao root diam: 3.1 cm LVIDs: 2.5 cm LVPWd: 0.69 cm LA dimension: 2.8 cm RVDd: 3.7 cm FS: 41.8 % LAV(MOD-bp): 33.9 ml LA A4 area: 15.8 cm2 RA A4 area: 13.2 cm2 LAV(MOD-bp) Indexed: 22.0 ml/m2 LAV(MOD-sp2): 25.2 ml LAV(MOD-sp4): 36.6 ml TAPSE: 1.8 cm Time Measurements MV dec time: 0.18 sec Doppler Measurements & Calculations MV E max yandel: 71.5 cm/sec Lat Peak E' Yandel: 11.9 cm/sec Med Peak E' Yandel: 11.0 cm/sec MV A max yandel: 89.0 cm/sec E/E' lat: 6.0 E/E' med: 6.5 MV E/A: 0.80 MV V2 max: 108.5 cm/sec MV P1/2t max yandel: 87.5 cm/sec Ao V2 max: 122.4 cm/sec MV max P.7 mmHg MV P1/2t: 70.1 msec Ao max P.0 mmHg MV V2 mean: 63.2 cm/sec Ao V2 mean: 80.2 cm/sec MV mean P.9 mmHg MV dec slope: 365.5 cm/sec2 Ao mean P.0 mmHg MV V2 VTI: 27.1 cm MVA(P1/2t): 3.1 cm2 Ao V2 VTI: 24.2 cm AV (velocity ratio): 1.00 LV V1 max: 122.2 cm/sec PA V2 max: 71.0 cm/sec TR max yandel: 255.8 cm/sec LV V1 max P.0 mmHg TR max P.2 mmHg LV V1 mean P.9 mmHg LV V1 mean: 79.2 cm/sec LV V1 VTI: 24.1 cm ECHO/Echo Complete Interpretation Summary The estimated ejection fraction is 60 %. Normal diastololic function. Mild (1+) tricuspid valve insufficiency. Ordering Physician: Anastasia Khan Referring Physician: Harish Luis Chi Performed By: Patrick Wright RCS
[2023-07-30 19:15] LABS: Lactic Acid 1.9 mmol/L (0.4-1.9)
[2023-07-30 20:26] LABS: Troponin-I HS 7 pg/mL (3.0-54.0)
[2023-07-30] MEDS: Menthol/Lanolin/Calamine/Znox 113 GM Tube 1 APPLIC TOPICAL (21:02)
[2023-07-30] MEDS: 0.9% Normal Saline (1000mL) 1,000 ML 100 ML IV (21:02)
[2023-07-30] MEDS: clonazePAM 1 MG Tablet PO (21:03)
[2023-07-30] MEDS: DOXEPIN HCL 50 MG CAPSULE 150 MG PO (21:03)
[2023-07-30] MEDS: Potassium Chloride Oral Tablet 20 MEQ 40 MEQ PO (21:04)
[2023-07-30] MEDS: busPIRone 5 MG Tablet 7.5 MG PO (21:04)
[2023-07-30 22:24] LABS: Troponin-I HS 6 pg/mL (3.0-54.0)
[2023-07-30] MEDS: Azithromycin 500 MG in Dextrose 5%-Water (250mL Bag) 250 ML 250 MG IV (22:57)
[2023-07-31] VITALS (10 sets, daily range): BP systolic 100–127; BP diastolic 56–95; PULSE 51–106; RESP 14–18; TEMP 36.7–37.7; O2SAT 89–97; BMI 23.0
[2023-07-31 00:46] LABS: M R Staph aureus DNA By PCR Negative (Negative); Probe Check PASS
[2023-07-31 01:44] LABS: Troponin-I HS 6 pg/mL (3.0-54.0)
[2023-07-31] MEDS: 0.9% Normal Saline (1000mL) 1,000 ML 100 ML IV (06:42)
[2023-07-31 07:31] LABS: Absolute Lymphocyte Count 0.73 X10^3/uL (0.83-4.51); Absolute Neutrophil Count 6.5 X10^3/uL (2.0-7.7); Basophil# 0.03 X10^3/uL; Basophil% 0.4 % (0-1); Eosinophil# 0.11 X10^3/uL; Eosinophils% 1.4 % (0-5); Hematocrit 28.5 % (37-47); Hemoglobin 9.1 g/dL (12.0-15.0); Lymphocyte # 0.73 X10^3/ul (0.83-4.51); Mean Corp Hgb Conc 31.9 g/dL (32-36); Mean Corpuscular Hgb 31.3 pg (27.0-32.0); Mean Corpuscular Volume 97.9 fL (81-99); Mean Platelet Vol. 10.2 fl (6.2-12.0); Monocyte# 0.65 X10^3/uL; Monocyte% 8.1 % (0-10); NRBC Flagged by Analyzer 0 % (0-5); Neutrophil # 6.52 X10^3/uL (2.7-7.7); Neutrophil % 80.7 % (47-70); POSITIVE MORPHOLOGY YES; Platelet Count 266 K/mm3 (150-450); RBC Distribution Width CV 13.9 % (11.6-14.6); RBC Distribution Width SD 50.5 fl (35.1-43.9); Red Blood Count 2.91 M/mm3 (4.2-5.4); White Blood Count 8.1 K/mm3 (4.4-11.0)
[2023-07-31 07:32] LABS: Differential Indicated SCAN CRITERIA MET
[2023-07-31 08:12] LABS: ALB/GLOB Ratio 0.6 RATIO (0.9-2.4); AST(SGOT) 13 U/L (15-37); Alanine Aminotransfer ALT/SGPT 9 U/L (13-56); Albumin, Serum 1.8 g/dL (3.2-5.0); Alkaline Phosphatase 73 U/L (45-117); Anion Gap 5 (5-15); BUN 18 mg/dL (7-18); BUN/Creat Ratio 20.3 RATIO (10-20); Calcium,Total 7.7 mg/dL (8.5-10.1); Chloride 114 mmol/L (98-107); Creatinine, Serum 0.89 mg/dL (0.55-1.02); EST Glomerular Filtration Rate 66 mL/min (>60); Est Glom Filt Rate - Afr Amer 80 mL/min (>60); Estimated Creatinine Clearance 42.48 ml/min; Globulin 3.1 g/dL (2.2-4.2); Glucose 86 mg/dL (74-106); Potassium 3.5 mmol/L (3.5-5.1); Protein, Total 4.9 g/dL (6.4-8.2); Sodium Level 141 mmol/L (136-145)
--- NOTE | 2023-07-31 09:35 | CASEMGMT ---
HERON ARREDONDO Face to Face with patient for initial transition planning/care coordination assessment. RN CM introduced self and role at [facility]. Patient lying in bed, alert and confused, at bedside. Patient willing to participate in assessment and is able to answer all questions appropriately. Care providers, pharmacy, and demographics verified. PCP: Toby Specialists: none Preferred Pharmacy: [facility] Insurance: [facility] Prescription Benefit: yes Living Will/HPOA: yes, Irving Lover LNOK: , 2 children Living Arrangements: Patient lives with in a 2 story home with bed and bath on first floor. Patient was independent at home. Transportation: DME/HHC: Patient has shower chair, raised toilet, cane, walker and grab bars at home. No previous HHC or SNF. Will monitor for progress with therapy. Will monitor for home oxygen Patient wishes to discharge home, will monitor progress with therapy and course of treatment. states he has no further needs or concerns at this time. CM to follow for discharge planning needs that may arise. Disposition Plan: TBD, anticipate HHC vs SNF, will monitor course of treatment Brea CHARLES, RN, CM
[2023-07-31] MEDS: Pantoprazole Sodium 20 MG Tablet PO (09:47)
[2023-07-31] MEDS: APIXABAN 5 MG TABLET 10 MG PO ×2 (09:47→22:04)
[2023-07-31] MEDS: busPIRone 5 MG Tablet 7.5 MG PO ×2 (09:47→22:03)
[2023-07-31] MEDS: Ceftriaxone 1 GM/50 ML BAG IV (09:56)
[2023-07-31] MEDS: Azithromycin 500 MG in Dextrose 5%-Water (250mL Bag) 250 ML 250 MG IV (11:52)
[2023-07-31] MEDS: Menthol/Lanolin/Calamine/Znox 113 GM Tube 1 APPLIC TOPICAL ×4 (11:53→22:14)
--- NOTE | 2023-07-31 12:07 | ST.MBS ---
Modified Barium Swallow Patient Information Study Date: 07/31/23 Study Time: 14:30 Direct Billable Minutes: 92 Total Minutes procedure & reportin Diagnosis: Aspiration PNA J69.0, Hypoxia R09.02 Referring Physician: Sondra Rooney Reason for Referral: Objectively assess swallow function, assess risk for aspiration, and determine recommendations for least restrictive diet textures and compensatory strategies to improve safety of swallow. Medical History: PMH: allergic rhinitis, arthritis, anxiety and depression, cervical stenosis of spine, chronic cough, hronic lower back pain, COVID-10, dysphagia, tobacco use (cigarette tobacco use-->transitioned to vaping), GERD, high cholesterol, HLD, IBS, movement disorder, wears dentures. The patient presented to [facility] ED 07/30/23 with history of frequent falls and altered mental status. called EMS on day of presentation after 2 falls with abrasions on her face and patient more sluggish following the second fall occurring in their garage. Pt also reported cough, some dyspnea worse with exertion, congestion, and increased fatigue and malaise 2-3 weeks prior to arrival to ED. Pt hypoxic in the ED and required 2L O2 via nasal cannula. CT of the brain with no acute intracranial findings, chest x-ray with bilateral lower lung infiltrates possibly pneumonia versus edema, plain film of the right shoulder with a fracture of the greater tuberosity more displaced than previously, CTPA with pulmonary embolism in the distal left main pulmonary artery extending to the proximal left upper lobe branch, extensive patchy bilateral infiltrates predominantly in the lower lungs concerning for multifocal pneumonia, underlying chronic changes and bronchiectatic changes, mediastinal and right hilar adenopathy possibly reactive. She was admitted for management of hypoxia, PNA, fx of humeral head, falls, and PE amongst other comorbidities. She was referred for BSE to assess risk for aspiration due to concern for aspiration PNA; however, PESTICIDE USE MEDICAL COORDINATOR, Melinda, who is familiar with this patient, recommended NPO with MBSS to objectively assess swallow function due to known history of oropharyngeal and esophageal dysphagia. EGD 11/03/22 - Tortuous esophagus. Abnormal esophageal motility, suspicious for presbyesophagus. Injected with botulinum toxin. Mild Schatzki ring. Dilated. Medium-sized hiatal hernia. Biopsies were taken with a cold forceps for evaluation of eosinophilic esophagitis. Recommended discharge patient to home. Resume previous diet. Continue present medications. MBSS 11/02/22 ? Moderate-severe oropharyngeal dysphagia with silent aspiration of thin liquids with recommendation for NPO with consideration for FFWP and meds whole in puree. EGD 08/02/22 - LA Grade A erosive esophagitis. Biopsied. Dilated. A large amount of food residue in the stomach. Recommended continue current medications, aspiration precautions, and gastric emptying study.MBSS 08/01/22 - Moderate-severe oropharyngeal dysphagia and esophageal dysphagia with silent aspiration of thin liquids with recommendation for minced and moist textures / thin liquids w/ strict aspiration precautions (liquid by tsp only, 2-3 swallows on each sip, GERD precautions). GI consult recommended. Current Diet Ordered: NPO Mental Status: Impaired (altered mental status, difficulty following commands requiring max verbal and visual cues to maintain posture for optimal positioning) Respiratory Status: Oxygenating on 4L/M nasal cannula Penetration-Aspiration Scale Penetration-Aspiration Scale: OBJECTIVE ASSESSMENT OF SWALLOW FUNCTION (QUANTITATIVE ? PER TRIAL): PENETRATION / ASPIRATION SCALE (HERNANDEZ): 1 = does not enter airway 2 = enters airway/above vocal folds/ejected 3 = enters airway/above vocal folds/not ejected 4 = enters airway/contacts vocal folds/ejected 5 = enters airway/contacts vocal folds/not ejected 6 = enters airway/below vocal folds/ejected 7 = enters airway/below vocal folds/not ejected despite effort 8 = enters airway/below vocal folds/no effort VIDEOFLOROSCOPIC SCALE SCORE (HERNANDEZ): Grade I = aspiration of material that has penetrated into the laryngeal vestibule, intact cough reflex Grade II = aspiration < 10 % of the bolus, intact cough reflex Grade III = aspiration of < 10 % of the bolus, reduced cough reflex or aspiration of > 10 % of the bolus, intact cough reflex Grade IV = aspiration of > 10 % of the bolus, reduced cough reflex Penetration-Aspiration Scale Score Thin Liquid via teaspoon: Result: 2= enter airway/above vocal folds/ejected Thin Liquid via teaspoon Trial 2: Result: 2= enter airway/above vocal folds/ejected Thin Liquid via large single sip: cup: Result: 2= enter airway/above vocal folds/ejected Thin Liquid via small single sip: cup: Result: 1= does not enter airway Moro Thick Liquid via small single sip: cup: Result: 1= does not enter airway Pudding via teaspoon: Result: 1= does not enter airway Comment: Esophageal screen - Esophageal retention in the lower esophagus with retrograde flow to the mid esophagus. Thin Liquid via single sip: straw: Result: 1= does not enter airway Oral Phase Labial Seal: Escape beyond mid-chin Tongue Control During Bolus Hold: Posterior escape of greater than half of bolus Bolus Transport/Lingual Motion: Slowed tongue motion Oral Residue: Residue collection on oral structures Pharyngeal Phase Initiation of Pharyngeal Swallow: Bolus head in pyriforms Soft Palate Elevation: No bolus between soft palate and pharyngeal wall Laryngeal Elevation: Comp. Superior move thyroid cart w/comp. apprx arytenoid cart-epig pet Anterior Hyoid Excursion: Partial anterior movement Laryngeal Vestibule Closure at Height of Swallow: Incomplete; narrow column of air/contrast in laryngeal vestibule Pharyngeal Stripping Wave: Present - diminished Pharyngoesophageal Segment Opening: Parital distension and partial duration; parital obstruction of flow Tongue Base Retraction: Narrow column of contrast between tongue base & post. pharyngeal wall Pharyngeal Residue: Collection of residue within or on pharyngeal structures Esophageal Phase Esophageal Clearance: Esophageal retention w/ retrograde flow below pharyngoesophageal seg. Diagnosis/Impression Diagnosis: Mod-severe oral dysphagia R13.11, Mod pharyngeal dysphagia R13.13 Impression: The oral phase is primarily marked by? -Poor bolus control with >1/2 liquid boluses spilling to the pyriforms prior to swallow onset. -Mild-moderate oral residue after the swallow, most notable with pudding trial. -Did not assess cookie trial due to patient reporting she would be unable to chew it adequately and hx of mastication insufficiency. The pharyngeal phase is primarily marked by? -Delayed swallow onset with >1/2 of liquid boluses in the pyriforms prior to swallow onset, which increased her risk for aspiration before the swallow. -Mild pharyngeal residue after the swallow due to decreased tongue base retraction, pharyngeal stripping wave, and UES opening/duration. -Trace laryngeal penetration with full ejection. No aspiration observed during the study; however, PESTICIDE USE MEDICAL COORDINATOR cannot definitively rule out aspiration for all the above mentioned trials due to patient's body habitus. Did not trial sequential sips due to high risk for aspiration w/ history of silent aspiration of sequential sips, as well as poor bolus control and delayed swallow onset during this study. The esophageal phase is primarily marked by? -Retention of pudding in the lower esophagus with retrograde flow to the mid esophagus, which mostly cleared with thin liquid wash. Recommendations Diet: Puree Textures and Thin Liquids Compensatory Strategies: Small Bites, Small Sips (Sips One At A Time), Slow Rate, Alternate bites/solids and sips/liquids (1:1 ratio), Sitting upright and Remain sitting upright for 30 minutes after PO intake Supervision: Assist as needed and 1:1 Close Supervision Recommend Repeat Modified Barium Swallow: TBD Need for Skilled Speech Therapy Services: Yes Comment: -Train the patient in use of strategies to decrease risk for aspiration and reflux aspiration. -Ongoing assessment of diet tolerance of recommended textures. -Train the patient oropharyngeal exercise program to improve bolus control/manipulation, airway closure, and swallow onset (lingual resistance, Tono, CTAR). Education Completed: 1. Described result of evaluation., 2. Pt understands evaluation & agrees with goals and treatment plan. and 7. Pt requires further education on strategies & risks. Status Active ST Patient: Active Contact Information [facility] Speech Therapy:: Jocelyne Chinchilla M.A. CCC-PESTICIDE USE MEDICAL COORDINATOR? Speech-Language Pathologist?? [facility] [address]?? [place] [address]?? [email or web address]?? [phone]
[2023-07-31 13:21] LABS: Pathologist Review Reviewed
--- NOTE | 2023-07-31 14:00 | NURSING ---
unable to complete multidisciplinary rounds due to patient being off floor for testing
[2023-07-31 14:07] LABS: Procalcitonin 7.98 ng/mL (0.00-0.09)
--- NOTE | 2023-07-31 16:26 | CON.PCM.OR_ITS ---
HPI Consult Data Date of Consult: 07/31/23 HPI Narrative HPI Narrative: CAROL ZARAGOZA, is a 73 F who presents right GT fracture of proximal humerus. Patient in sling. Had 2 falls. In hospital from . [facility] Medical History (Updated 07/30/23 @ 19:[address] Anastasia Khan MD) Anxiety and depression Cervical stenosis of spine Vitamin D deficiency Irritable bowel syndrome without diarrhea Stenosis, cervical spine Chronic cough Allergic rhinitis Insomnia HLD (hyperlipidemia) Movement disorder Gastroparesis Dysphagia Pain from implanted hardware Wears hearing aid Wears dentures Wears glasses Post-menopausal Uses wheelchair Walker as ambulation aid Ambulates with cane Arthritis High cholesterol Back pain Migraine headache Gastric reflux Former smoker Shortness of breath on exertion History of stress test Hypertension COVID-19 Scoliosis of lumbar spine Segmental and somatic dysfunction of pelvic region Segmental dysfunction of thoracic region Segmental and somatic dysfunction of lumbar region Carpal tunnel syndrome on both sides Chronic lower back pain Home Medications ?Medication ?Instructions ?Recorded ?Last Taken ?Type buspirone 7.5 mg tablet 7.5 mg PO BID Check with primary 02/17/20 04/26/22 History doctor clonazepam 1 mg tablet 1 mg PO TID anxiety 02/17/20 04/26/22 History gabapentin 400 mg capsule 400 mg PO Q6H Check with primary 04/20/22 04/26/22 History doctor acetaminophen 325 mg tablet 650 mg (2 x 325 mg) PO Q6H PRN PRN 08/02/22 Unknown Rx Pain 1-10 Or Fever >100.7 #0 tabs tramadol 50 mg tablet 50 mg PO Q6H PRN pain 3 days #12 03/17/23 Unknown Rx tabs doxepin 150 mg capsule 150 mg PO QHS 07/30/23 Unknown History metoprolol succinate 25 mg 25 mg PO DAILY 07/30/23 Unknown History tablet,extended release 24 hr omeprazole 20 mg capsule,delayed 20 mg PO DAILY 07/30/23 Unknown History release Allergy/AdvReac Type Severity Reaction Status Date / Time hydrocodone (From Vicodin) Allergy NERVOUS, Verified 07/30/23 13:37 JITTERY Penicillins Allergy Rash Verified 07/30/23 13:37 Family History Mother Hypertension CVA (cerebral vascular accident) Heart disease Cerebral hemorrhage Father Cancer Hx stomach cancer and leukemia. Surgical History History of 2 sections History of cardiac catheterization History of lumbar laminectomy Hx of dilation and curettage Hx of surgical procedure Social History household members: spouse housing: house number of children: 2 Smoking Status: Current every day smoker tobacco type: e-cigarettes alcohol intake: never substance use type: does not use what type of physical activity do you participate in: none additional social history: Currently ambulating with a cane Vital Signs Vital Signs Vital Signs: 07/30/23 16:36 07/30/23 16:36 07/30/23 17:00 Temperature 98.2 F 98.2 F Temperature Source Oral Pulse Rate 87 87 88 Pulse Strength Respiratory Rate 17 17 20 H Respiratory Effort Respiratory Depth Respiratory Pattern Blood Pressure 95/59 L 95/59 L 98/61 Blood Pressure Mean 71 71 73 Blood Pressure Source Blood Pressure Position Blood Pressure Location Pulse Ox 95 95 94 Oxygen Delivery Method Nasal Cannula Nasal Cannula Oxygen Flow Rate (L/min) 2 07/30/23 17:17 07/30/23 17:32 07/30/23 17:47 Temperature 98.0 F 98 F 98.1 F Temperature Source Oral Oral Oral Pulse Rate 90 92 88 Pulse Strength Respiratory Rate 16 18 24 H Respiratory Effort Respiratory Depth Respiratory Pattern Blood Pressure 107/67 104/70 112/74 Blood Pressure Mean 80 81 86 Blood Pressure Source Blood Pressure Position Blood Pressure Location Pulse Ox 98 96 93 Oxygen Delivery Method Nasal Cannula Nasal Cannula Nasal Cannula Oxygen Flow Rate (L/min) 2 2 3 07/30/23 18:02 07/30/23 18:45 07/30/23 19:30 Temperature 97.6 F L 98.1 F Temperature Source Temporal Temporal Pulse Rate 90 89 Pulse Strength Respiratory Rate 17 16 Respiratory Effort Normal Non-Labored Respiratory Depth Normal Respiratory Pattern Normal Blood Pressure 113/63 134/81 H Blood Pressure Mean 79 98 Blood Pressure Source Monitor Blood Pressure Position Semi-Fowlers Blood Pressure Location Left Arm Pulse Ox 95 96 Oxygen Delivery Method Nasal Cannula Nasal Cannula Nasal Cannula Oxygen Flow Rate (L/min) 3 3 3 07/30/23 20:51 07/30/23 22:00 07/31/23 00:45 Temperature 98.9 F Temperature Source Temporal Pulse Rate 106 H Pulse Strength Normal (2+) Respiratory Rate 14 Respiratory Effort Respiratory Depth Respiratory Pattern Blood Pressure 115/65 Blood Pressure Mean 81 Blood Pressure Source Monitor Blood Pressure Position Supine Blood Pressure Location Left Arm Pulse Ox 95 94 Oxygen Delivery Method Nasal Cannula Nasal Cannula Oxygen Flow Rate (L/min) 3 3 07/31/23 01:04 07/31/23 04:10 07/31/23 04:15 Temperature 99.9 F H Temperature Source Oral Pulse Rate 100 Pulse Strength Respiratory Rate 18 Respiratory Effort Normal Non-Labored Respiratory Depth Normal Respiratory Pattern Normal Blood Pressure 108/56 L Blood Pressure Mean 73 Blood Pressure Source Monitor Blood Pressure Position Supine Blood Pressure Location Left Arm Pulse Ox 89 94 Oxygen Delivery Method Nasal Cannula Nasal Cannula Nasal Cannula Oxygen Flow Rate (L/min) 3 3 5 07/31/23 06:46 07/31/23 07:24 07/31/23 09:39 Temperature 98.1 F 98.1 F Temperature Source Oral Oral Pulse Rate 89 87 Pulse Strength Respiratory Rate 14 16 Respiratory Effort Respiratory Depth Respiratory Pattern Blood Pressure 100/60 104/56 L Blood Pressure Mean 73 72 Blood Pressure Source Monitor Monitor Blood Pressure Position Supine Sitting Blood Pressure Location Left Arm Left Arm Pulse Ox 97 94 96 Oxygen Delivery Method Nasal Cannula Nasal Cannula Nasal Cannula Oxygen Flow Rate (L/min) 5 3 4 07/31/23 10:00 07/31/23 13:42 07/31/23 14:00 Temperature Temperature Source Pulse Rate Pulse Strength Respiratory Rate Respiratory Effort Normal Non-Labored Respiratory Depth Normal Respiratory Pattern Normal Blood Pressure Blood Pressure Mean Blood Pressure Source Blood Pressure Position Blood Pressure Location Pulse Ox Oxygen Delivery Method Nasal Cannula Nasal Cannula Oxygen Flow Rate (L/min) 3 2 3 07/31/23 14:55 Temperature Temperature Source Pulse Rate Pulse Strength Respiratory Rate Respiratory Effort Respiratory Depth Respiratory Pattern Blood Pressure Blood Pressure Mean Blood Pressure Source Blood Pressure Position Blood Pressure Location Pulse Ox Oxygen Delivery Method Oxygen Flow Rate (L/min) 2 Weight Weight: 125 lb 3.561 oz Body Mass Index (BMI) 23.0 Physical Exam Const alert General Appearance: cooperative Extremity normal capillary refill Extremity Narrative: bruised anteriorly, closed, pain to proximal humerus, none to elbow. nvi to ax, mru and ain/pin. strong radial pulse, no wrist pain. unable to lift the arm, in a sling Lab / Micro Data 07/31/23 06:20 07/31/23 06:20 Labs: Laboratory Results - last 24 hr 07/30/23 13:45: Diff Path Review Reviewed, B-Natriuretic Peptide 88.3 07/30/23 17:36: Magnesium 1.7 07/30/23 17:50: Procalcitonin 7.98 H 07/30/23 18:35: Lactic Acid 1.9 07/30/23 19:50: Troponin I High Sens 7 07/30/23 20:55: MRSA (PCR) Negative 07/30/23 21:41: Troponin I High Sens 6 07/31/23 01:20: Troponin I High Sens 6 07/31/23 06:20: WBC 8.1, RBC 2.91 L, Hgb 9.1 L, Hct 28.5 L, MCV 97.9, MCH 31.3, MCHC 31.9 L, RDW Std Deviation 50.5 H, RDW Coeff of Mehnaz 13.9, Plt Count 266, MPV 10.2, Immature Gran % (Auto) 0.400, Neut % (Auto) 80.7 H, Lymph % (Auto) 9.0 L, [place] % (Auto) 8.1, Eos % (Auto) 1.4, Baso % (Auto) 0.4, Absolute Neuts (auto) 6.5, Absolute Lymphs (auto) 0.73 L, Nucleated RBC % 0, Sodium 141, Potassium 3.5, Chloride 114 H, Carbon Dioxide 22.0, Anion Gap 5, BUN 18, Creatinine 0.89, Estim Creat Clear Calc 42.48, Est GFR (MDRD) Af Amer 80, Est GFR (MDRD) Non-Af 66, BUN/Creatinine Ratio 20.3 H, Glucose 86, Calcium 7.7 L, Total Bilirubin 0.40, AST 13 L, ALT 9 L, Alkaline Phosphatase 73, Total Protein 4.9 L, Albumin 1.8 L, Globulin 3.1, Albumin/Globulin Ratio 0.6 L Micro: Microbiology 07/31/23 04:41 Urine, Clean Catch Legionella Antigen - Final 07/31/23 04:41 Urine, Clean Catch Streptococcus pneumoniae Antigen (M - Final 07/30/23 20:05 Mucosa - Nose Respiratory Panel (PCR) - Final 07/30/23 14:25 Mucosa - Nose SARS-CoV-2, Influenza & RSV (PCR) - Final Imaging Radiology Impression Echocardiogram 07/30/23 19:04 Interpretation Summary The estimated ejection fraction is 60 %. Normal diastololic function. Mild (1+) tricuspid valve insufficiency. Ordering Physician: Anastasia Khan Referring Physician: Harish Luis Chi Performed By: Patrick Wright RCS displaced fracture, under the acromion on repeat xrays Assessment & Plan Assessment/Plan (1) Closed fracture of greater tuberosity of right humerus: PLAN: 73 F who presents right GT fracture of proximal humerus. Displaced under acromion, would be an indication for fixation but patient on eliquis with PE, so would recommend conservative care for now with sling and rest, ROM as tolerated. Will consider ORIF when patient stable from acute medical problems.
[2023-07-31] MEDS: Gabapentin 400 MG Capsule PO ×2 (16:37→22:04)
[2023-07-31] MEDS: clonazePAM 1 MG Tablet PO ×2 (16:37→22:04)
--- NOTE | 2023-07-31 19:22 | PN_ITS ---
Subjective Subjective Patient seen and examined. She felt quite weak and frail. She was quite lethargic. She however asked if she could go home. She denied any fever, chills, cough, chest pain, palpitations, dizziness, nausea, vomiting or any other symptoms. Review of systems is otherwise negative. She has remained hemodynamically stable. Objective Data Objective Data Vital Signs: Vital Signs Temp Pulse Resp BP Pulse Ox O2 Del Method O2 Flow Rate 98.7 F 51 L 16 106/95 H 97 Nasal Cannula 3 07/31/23 16:42 07/31/23 19:05 07/31/23 19:05 07/31/23 16:42 07/31/23 16:42 07/31/23 18:00 07/31/23 18:00 Oxygen Flow Rate (L/min) 3 Oxygen Delivery Method Nasal Cannula Weight: 125 lb 3.561 oz Body Mass Index (BMI) 23.0 Intake & Output: Intake and Output for Last 24 Hours 07/29/23 07/30/23 07/31/23 23:59 23:59 23:59 Intake Total 2150 / 2630 2866.67 / 2866.67 Output Total 400 / 400 Balance 2150 / 2630 2466.67 / 2466.67 Lab / Micro Data 07/31/23 06:20 07/31/23 06:20 Labs: Laboratory Results - last 24 hr 07/30/23 13:45: Diff Path Review Reviewed 07/30/23 17:50: Procalcitonin 7.98 H 07/30/23 19:50: Troponin I High Sens 7 07/30/23 20:55: MRSA (PCR) Negative 07/30/23 21:41: Troponin I High Sens 6 07/31/23 01:20: Troponin I High Sens 6 07/31/23 06:20: WBC 8.1, RBC 2.91 L, Hgb 9.1 L, Hct 28.5 L, MCV 97.9, MCH 31.3, MCHC 31.9 L, RDW Std Deviation 50.5 H, RDW Coeff of Mehnaz 13.9, Plt Count 266, MPV 10.2, Immature Gran % (Auto) 0.400, Neut % (Auto) 80.7 H, Lymph % (Auto) 9.0 L, [place] % (Auto) 8.1, Eos % (Auto) 1.4, Baso % (Auto) 0.4, Absolute Neuts (auto) 6.5, Absolute Lymphs (auto) 0.73 L, Nucleated RBC % 0, Sodium 141, Potassium 3.5, Chloride 114 H, Carbon Dioxide 22.0, Anion Gap 5, BUN 18, Creatinine 0.89, Estim Creat Clear Calc 42.48, Est GFR (MDRD) Af Amer 80, Est GFR (MDRD) Non-Af 66, BUN/Creatinine Ratio 20.3 H, Glucose 86, Calcium 7.7 L, Total Bilirubin 0.40, AST 13 L, ALT 9 L, Alkaline Phosphatase 73, Total Protein 4.9 L, Albumin 1.8 L, Globulin 3.1, Albumin/Globulin Ratio 0.6 L Micro: Microbiology 07/31/23 04:41 Urine, Clean Catch Legionella Antigen - Final 07/31/23 04:41 Urine, Clean Catch Streptococcus pneumoniae Antigen (M - Final 07/30/23 20:05 Mucosa - Nose Respiratory Panel (PCR) - Final 07/30/23 14:25 Mucosa - Nose SARS-CoV-2, Influenza & RSV (PCR) - Final Radiography Diagnostic Testing: Radiology Impression Echocardiogram 07/30/23 19:04 Interpretation Summary The estimated ejection fraction is 60 %. Normal diastololic function. Mild (1+) tricuspid valve insufficiency. Ordering Physician: Anastasia Khan Referring Physician: Harish Luis Chi Performed By: Patrick Wright RCS Physical Exam Const alert and no apparent distress Orientation / Consciousness: lethargic HEENT normocephalic Mouth: dry mucous membranes Eyes PERRL and EOMs intact bilaterally Neck no lymphadenopathy, supple and no JVD Lymph Lymphatic: no lymphedema noted Resp Resp Narrative: mildly diminished breath sounds bibasally, no wheezes or crackles. On 3-4L of oxygen by nasal canula Cardio regular rate, regular rhythm, S1 normal heart sound, S2 normal heart sound and no murmurs GI normal to inspection, nondistended, normoactive bowel sounds, soft to palpation and non-tender Extremity normal capillary refill, no clubbing, cyanosis or edema and no calf tenderness Extremity Narrative: LUE in sling Skin General Skin Exam: no breakdown Neuro CN's II-XII intact bilaterally Motor Exam: general weakness Psych Psych Narrative: lethargic Assessment & Plan Assessment/Plan (1) Hypoxia: (2) Pneumonia: (3) Fracture of humeral head: (4) Falls: (5) Pulmonary emboli: (6) Hypoxia: PLAN: Plan #hypoxia due to community acquired pneumonia * currently on 3-4L of oxygen * CXR showed acute bilateral multifocal pneumonia * on IV ceftriaxone and azithromycin * sputum cultures and respiratory panel pending * titrate oxygen to maintain sats >90% * breathing treatment with bronchodilators. * #Acute left sided PE * CTA chest showed evidence of PE * initiated on eliquis. * 2D echo: * * #DEE: Cr was 1.74 on admission. Being hydrated with IVF. Will trend Cr. #RIght greater tuberosity displaced fracture * due to mechanical fall from 07/25/2023 * was to follow orthopedic surgery on outpatient basis * RUE currently in sling * orthopedic surgery consulted. Await rec's * #Hypokalemia: will replace and trend #GERD: on PPI #Nicotine dependence: now uses a vaping device. Counseled to quit. Nicotine patch 21mg daily. DVT prophylaxis: already on eliquis therapeutic dose for PE. Charges/Coding Visit Charges Inpatient E&M: 76155 Subs Hosp L2
[2023-07-31] MEDS: DOXEPIN HCL 50 MG CAPSULE 150 MG PO (22:04)
[2023-08-01] VITALS (7 sets, daily range): BP systolic 128–137; BP diastolic 73–81; PULSE 80–88; RESP 16–18; TEMP 36.6–36.9; O2SAT 94–97; BMI 23.6; BMI 22.8
[2023-08-01] MEDS: clonazePAM 1 MG Tablet PO ×3 (05:55→21:59)
[2023-08-01] MEDS: Gabapentin 400 MG Capsule PO ×3 (05:55→18:33)
[2023-08-01 07:39] LABS: Absolute Lymphocyte Count 0.93 X10^3/uL (0.83-4.51); Absolute Neutrophil Count 7.3 X10^3/uL (2.0-7.7); Basophil# 0.05 X10^3/uL; Basophil% 0.6 % (0-1); Eosinophils% 2.2 % (0-5); Hemoglobin 9.9 g/dL (12.0-15.0); Lymphocyte # 0.93 X10^3/ul (0.83-4.51); Lymphocyte % 10.3 % (19-41); Mean Corp Hgb Conc 31.9 g/dL (32-36); Mean Corpuscular Hgb 31.4 pg (27.0-32.0); Mean Corpuscular Volume 98.4 fL (81-99); Mean Platelet Vol. 9.8 fl (6.2-12.0); Monocyte# 0.44 X10^3/uL; Monocyte% 4.9 % (0-10); NRBC Flagged by Analyzer 0 % (0-5); Neutrophil % 80.9 % (47-70); Platelet Count 284 K/mm3 (150-450); RBC Distribution Width CV 13.9 % (11.6-14.6); Red Blood Count 3.15 M/mm3 (4.2-5.4)
[2023-08-01 08:10] LABS: Anion Gap 1 (5-15); BUN 12 mg/dL (7-18); Calcium,Total 8.5 mg/dL (8.5-10.1); Chloride 117 mmol/L (98-107); Creatinine, Serum 0.71 mg/dL (0.55-1.02); EST Glomerular Filtration Rate 86 mL/min (>60); Est Glom Filt Rate - Afr Amer 104 mL/min (>60); Estimated Creatinine Clearance 51.45 ml/min; Glucose 86 mg/dL (74-106); Potassium 3.6 mmol/L (3.5-5.1); Sodium Level 144 mmol/L (136-145)
[2023-08-01] MEDS: Ceftriaxone 1 GM/50 ML BAG IV (10:33)
[2023-08-01] MEDS: Pantoprazole Sodium 20 MG Tablet PO (10:37)
[2023-08-01] MEDS: busPIRone 5 MG Tablet 7.5 MG PO ×2 (10:37→21:59)
[2023-08-01] MEDS: APIXABAN 5 MG TABLET 10 MG PO ×2 (10:37→21:59)
[2023-08-01] MEDS: Menthol/Lanolin/Calamine/Znox 113 GM Tube 1 APPLIC TOPICAL ×2 (10:38→22:00)
[2023-08-01] MEDS: Azithromycin 500 MG in Dextrose 5%-Water (250mL Bag) 250 ML 250 MG IV (11:07)
--- NOTE | 2023-08-01 14:09 | PN_ITS ---
Subjective Subjective Patient seen and examined. She remains quite confused. She is on 3L of oxygen. She is asking about being discharged home. She said she wanted to see her daughter and her cats. Unable to do comprehensive review of systems due to her confusion. She is on 2 L of oxygen. Objective Data Objective Data Vital Signs: Vital Signs Temp Pulse Resp BP Pulse Ox O2 Del Method O2 Flow Rate 97.8 F 81 16 128/73 H 95 Nasal Cannula 2 08/01/23 10:29 08/01/23 10:29 08/01/23 10:29 08/01/23 10:29 08/01/23 10:48 08/01/23 10:50 08/01/23 11:15 Oxygen Flow Rate (L/min) 2 Oxygen Delivery Method Nasal Cannula Weight: 128 lb 11.999 oz Body Mass Index (BMI) 23.6 Intake & Output: Intake and Output for Last 24 Hours 07/30/23 07/31/23 08/01/23 23:59 23:59 23:59 Intake Total 2150 / 2630 4266.67 / 4366.67 605 / 605 Output Total 400 / 400 Balance 2150 / 2630 3866.67 / 3966.67 605 / 605 Lab / Micro Data 08/01/23 07:15 08/01/23 07:15 Labs: Laboratory Results - last 24 hr 08/01/23 07:15: WBC 9.0, RBC 3.15 L, Hgb 9.9 L, Hct 31.0 L, MCV 98.4, MCH 31.4, MCHC 31.9 L, RDW Std Deviation 50.0 H, RDW Coeff of Mehnaz 13.9, Plt Count 284, MPV 9.8, Immature Gran % (Auto) 1.100 H, Neut % (Auto) 80.9 H, Lymph % (Auto) 10.3 L , [place] % (Auto) 4.9, Eos % (Auto) 2.2, Baso % (Auto) 0.6, Absolute Neuts (auto) 7.3, Absolute Lymphs (auto) 0.93, Nucleated RBC % 0, Sodium 144, Potassium 3.6, Chloride 117 H, Carbon Dioxide 26.0, Anion Gap 1 L, BUN 12, Creatinine 0.71, Estim Creat Clear Calc 51.45, Est GFR (MDRD) Af Amer 104, Est GFR (MDRD) Non-Af 86, BUN/Creatinine Ratio 17.0, Glucose 86, Calcium 8.5 Micro: Microbiology 07/31/23 04:41 Urine, Clean Catch Legionella Antigen - Final 07/31/23 04:41 Urine, Clean Catch Streptococcus pneumoniae Antigen (M - Final 07/30/23 20:05 Mucosa - Nose Respiratory Panel (PCR) - Final 07/30/23 14:25 Mucosa - Nose SARS-CoV-2, Influenza & RSV (PCR) - Final Radiography Diagnostic Testing: Radiology Impression Echocardiogram 07/30/23 19:04 Interpretation Summary The estimated ejection fraction is 60 %. Normal diastololic function. Mild (1+) tricuspid valve insufficiency. Ordering Physician: Anastasia Khan Referring Physician: Harish Luis Chi Performed By: Patrick Wright RCS Physical Exam Const alert and no apparent distress Orientation / Consciousness: confused HEENT normocephalic and head/scalp atraumatic Eyes PERRL and EOMs intact bilaterally Neck no lymphadenopathy, supple and no JVD Lymph Lymphatic: no lymphedema noted Resp Resp Narrative: mildly diminished breath sounds bibasally, no wheezes or crackles. On 2 L of oxygen by nasal canula Cardio regular rate, regular rhythm, S1 normal heart sound, S2 normal heart sound and no murmurs GI normal to inspection, nondistended, normoactive bowel sounds, soft to palpation and non-tender Extremity normal capillary refill, no clubbing, cyanosis or edema and no calf tenderness Extremity Narrative: LUE in sling Skin General Skin Exam: no breakdown Neuro CN's II-XII intact bilaterally Neuro Narrative: confused Motor Exam: general weakness Psych Psych Narrative: lethargic Assessment & Plan Assessment/Plan (1) Hypoxia: (2) Pneumonia: (3) Fracture of humeral head: (4) Falls: (5) Pulmonary emboli: PLAN: Plan #hypoxia due to community acquired pneumonia * now on 2L of oxygen by nasal canula * CXR showed acute bilateral multifocal pneumonia * on IV ceftriaxone and azithromycin * Respiratory panel is negative. Sputum culture pending. Urine for strep and Legionella negative. * titrate oxygen to maintain sats >90% * breathing treatment with bronchodilators. * #Acute left sided PE * CTA chest showed evidence of PE * initiated on eliquis. * 2D echo: EF of 60% with normal diastolic function and +1 tricuspid valve insufficiency. * * #DEE:resolved. Cr is down to 0.71 #RIght greater tuberosity displaced fracture * due to mechanical fall from 07/25/2023 * was to follow orthopedic surgery on outpatient basis * RUE currently in sling * orthopedic surgery consulted. Per orthopedic surgery, conservative management for now with range of motion as tolerated. Requested open reduction and internal fixation when patient is stable from acute medical problems. * #Hypokalemia: will replace and trend #GERD: on PPI #Nicotine dependence: now uses a vaping device. Counseled to quit. Nicotine patch 21mg daily. DVT prophylaxis: already on eliquis therapeutic dose for PE. Charges/Coding Visit Charges Inpatient E&M: 07120 Subs Hosp L2
[2023-08-01] MEDS: 0.9% Saline Lock 10 ML Syringe IV (14:34)
[2023-08-01] MEDS: Acetaminophen 325 MG Tablet 650 MG PO (20:38)
[2023-08-01] MEDS: DOXEPIN HCL 50 MG CAPSULE 150 MG PO (22:00)
[2023-08-02] VITALS (8 sets, daily range): BP systolic 125–141; BP diastolic 72–82; PULSE 72–88; RESP 15–18; TEMP 36.7–37; O2SAT 85–96; BMI 22.8
[2023-08-02] MEDS: Gabapentin 400 MG Capsule PO ×5 (00:26→23:01)
[2023-08-02] MEDS: clonazePAM 1 MG Tablet PO ×3 (05:59→23:01)
[2023-08-02 07:16] LABS: Absolute Neutrophil Count 4.9 X10^3/uL (2.0-7.7); Basophil# 0.04 X10^3/uL; Basophil% 0.6 % (0-1); Eosinophil# 0.24 X10^3/uL; Eosinophils% 3.6 % (0-5); Hematocrit 32.3 % (37-47); Lymphocyte % 16.4 % (19-41); Mean Corpuscular Hgb 30.3 pg (27.0-32.0); Mean Corpuscular Volume 97.9 fL (81-99); Mean Platelet Vol. 9.9 fl (6.2-12.0); Monocyte# 0.44 X10^3/uL; Monocyte% 6.6 % (0-10); NRBC Flagged by Analyzer 0 % (0-5); Neutrophil # 4.85 X10^3/uL (2.7-7.7); Neutrophil % 72.2 % (47-70); Platelet Count 309 K/mm3 (150-450); RBC Distribution Width CV 13.6 % (11.6-14.6); White Blood Count 6.7 K/mm3 (4.4-11.0)
[2023-08-02 07:43] LABS: Anion Gap 2 (5-15); BUN 10 mg/dL (7-18); BUN/Creat Ratio 14.2 RATIO (10-20); Calcium,Total 8.8 mg/dL (8.5-10.1); Chloride 116 mmol/L (98-107); EST Glomerular Filtration Rate 86 mL/min (>60); Est Glom Filt Rate - Afr Amer 105 mL/min (>60); Estimated Creatinine Clearance 47.26 ml/min; Glucose 102 mg/dL (74-106); Potassium 3.6 mmol/L (3.5-5.1); Sodium Level 144 mmol/L (136-145)
[2023-08-02] MEDS: Ceftriaxone 1 GM/50 ML BAG IV (09:01)
[2023-08-02] MEDS: Azithromycin 500 MG in Dextrose 5%-Water (250mL Bag) 250 ML 250 MG IV (09:41)
[2023-08-02] MEDS: Pantoprazole Sodium 20 MG Tablet PO (09:45)
[2023-08-02] MEDS: APIXABAN 5 MG TABLET 10 MG PO ×2 (09:45→23:03)
[2023-08-02] MEDS: busPIRone 5 MG Tablet 7.5 MG PO ×2 (09:45→23:00)
--- NOTE | 2023-08-02 10:59 | CASEMGMT ---
Discharge Planning A list of?SNF providers including quality and resource use data and consistent with the patient's preferred geographic region, medical needs, and insurance network was created in [facility].? This list was provided to the SW. Nicole Lopez Discharge Planning Asst.
--- NOTE | 2023-08-02 11:17 | CASEMGMT ---
RN CM reviewed progress with therapy, recommending SNF. RN CM in to discuss needs at discharge and progress with therapy. Patient and agreeable to SNF at discharge and SNF list provided. Patient and to review list and provide preferences. SW updated. CM will continue to follow this patient and plan for a safe discharge.
--- NOTE | 2023-08-02 13:07 | PN_ITS ---
Subjective Subjective Patient seen and examined. was by her side. She requested to go home. She denied any fever, chills, cough, chest pain, palpitations, dizziness, nausea, vomiting or any other symptoms. Review of systems is otherwise negative. Patient and are now agreeable to placement. On 2L of oxygen by nasal canula. Objective Data Objective Data Vital Signs: Vital Signs Temp Pulse Resp BP Pulse Ox O2 Del Method O2 Flow Rate 98.1 F 79 15 130/79 H 93 Nasal Cannula 2 08/02/23 08:39 08/02/23 08:39 08/02/23 08:39 08/02/23 08:39 08/02/23 10:00 08/02/23 08:39 08/02/23 10:00 Oxygen Flow Rate (L/min) 2 Oxygen Delivery Method Nasal Cannula Weight: 124 lb 5.451 oz Body Mass Index (BMI) 22.8 Intake & Output: Intake and Output for Last 24 Hours 07/31/23 08/01/23 08/02/23 23:59 23:59 23:59 Intake Total 4266.67 / 4366.67 1045 / 1545 1245 / 1245 Output Total 400 / 400 2049 / 2049 Balance 3866.67 / 3966.67 1045 / 1545 -805 / -805 Lab / Micro Data 08/02/23 06:45 08/02/23 06:45 Labs: Laboratory Results - last 24 hr 08/02/23 06:45: WBC 6.7, RBC 3.30 L, Hgb 10.0 L, Hct 32.3 L, MCV 97.9, MCH 30.3, MCHC 31.0 L, RDW Std Deviation 49.0 H, RDW Coeff of Mehnaz 13.6, Plt Count 309, MPV 9.9, Immature Gran % (Auto) 0.600, Neut % (Auto) 72.2 H, Lymph % (Auto) 16.4 L, [place] % (Auto) 6.6, Eos % (Auto) 3.6, Baso % (Auto) 0.6, Absolute Neuts (auto) 4.9, Absolute Lymphs (auto) 1.10, Nucleated RBC % 0, Sodium 144, Potassium 3.6, Chloride 116 H, Carbon Dioxide 26.0, Anion Gap 2 L, BUN 10, Creatinine 0.70, Estim Creat Clear Calc 47.26, Est GFR (MDRD) Af Amer 105, Est GFR (MDRD) Non-Af 86, BUN/Creatinine Ratio 14.2, Glucose 102, Calcium 8.8 Micro: Microbiology 07/31/23 04:41 Urine, Clean Catch Legionella Antigen - Final 07/31/23 04:41 Urine, Clean Catch Streptococcus pneumoniae Antigen (M - Final 07/30/23 20:05 Mucosa - Nose Respiratory Panel (PCR) - Final 07/30/23 14:25 Mucosa - Nose SARS-CoV-2, Influenza & RSV (PCR) - Final Physical Exam Const alert, oriented x3 and no apparent distress Constitutional Narrative: has episodic confusion General Appearance: cooperative HEENT normocephalic and head/scalp atraumatic Eyes PERRL and EOMs intact bilaterally Neck no lymphadenopathy, supple and no JVD Lymph Lymphatic: no lymphedema noted Resp Resp Narrative: mildly diminished breath sounds bibasally, no wheezes or crackles. On 2 L of oxygen by nasal canula Cardio regular rate, regular rhythm, S1 normal heart sound, S2 normal heart sound and no murmurs GI normal to inspection, nondistended, normoactive bowel sounds, soft to palpation and non-tender Extremity normal capillary refill, no clubbing, cyanosis or edema and no calf tenderness Extremity Narrative: LUE in sling General Extremity: no tenderness to palpation of joints or extremities Skin General Skin Exam: no breakdown Neuro CN's II-XII intact bilaterally Neuro Narrative: confused Motor Exam: general weakness Psych Psych Narrative: alert with episodic confusion Assessment & Plan Assessment/Plan (1) Hypoxia: (2) Pneumonia: (3) Fracture of humeral head: (4) Falls: (5) Pulmonary emboli: PLAN: Plan #hypoxia due to community acquired pneumonia * on 2L of oxygen by nasal canula * CXR showed acute bilateral multifocal pneumonia * on IV ceftriaxone and azithromycin * Respiratory panel is negative. Urine for strep and Legionella negative. * titrate oxygen to maintain sats >90% * breathing treatment with bronchodilators. * #Acute left sided PE * CTA chest showed evidence of PE * initiated on eliquis. * 2D echo: EF of 60% with normal diastolic function and +1 tricuspid valve insufficiency. * #DEE:resolved. #RIght greater tuberosity displaced fracture * due to mechanical fall from 07/25/2023 * was to follow orthopedic surgery on outpatient basis * RUE currently in sling * orthopedic surgery consulted. Per orthopedic surgery, conservative management for now with range of motion as tolerated. Requested open reduction and internal fixation when patient is stable from acute medical problems. * #Hypokalemia: will replace and trend #GERD: on PPI #Nicotine dependence: now uses a vaping device. Counseled to quit. Nicotine patch 21mg daily. DVT prophylaxis: already on eliquis therapeutic dose for PE. Charges/Coding Visit Charges Inpatient E&M: 82622 Subs Hosp L2
--- NOTE | 2023-08-02 16:14 | CASEMGMT ---
[facility] was not on patient's list as it did not come up on insurance website. MASSIEL met with patient and her . SW explained that [facility] has a unit, but it was not on the list. SW asked if they would like to see TCU's star rating. They declined and patient said she wants to stay at [facility] to do her therapy. Both patient and her want patient to go to TCU and thanked SW for letting them know. SW made a referral and TCU can take patient pending pre-cert. Plan: [facility] pending insurance approval. Jessenia Rojas [employer] MARISOL
[2023-08-02] MEDS: Acetaminophen 325 MG Tablet 650 MG PO (19:52)
[2023-08-02] MEDS: DOXEPIN HCL 50 MG CAPSULE 150 MG PO (23:01)
[2023-08-03 02:48] VITALS: BMI 22.8
[2023-08-03 05:25] VITALS: BP 145/83; PULSE 84; RESP 18; TEMP 36.4; O2SAT 94
[2023-08-03] MEDS: clonazePAM 1 MG Tablet PO ×3 (05:35→23:10)
[2023-08-03] MEDS: Gabapentin 400 MG Capsule PO ×4 (05:35→23:10)
[2023-08-03 06:58] VITALS: O2SAT 93
[2023-08-03 06:58] LABS: Absolute Lymphocyte Count 1.58 X10^3/uL (0.83-4.51); Absolute Neutrophil Count 2.8 X10^3/uL (2.0-7.7); Basophil# 0.06 X10^3/uL; Basophil% 1.1 % (0-1); Eosinophil# 0.28 X10^3/uL; Eosinophils% 5.3 % (0-5); Hematocrit 33.6 % (37-47); Hemoglobin 10.6 g/dL (12.0-15.0); Lymphocyte # 1.58 X10^3/ul (0.83-4.51); Lymphocyte % 29.8 % (19-41); Mean Corp Hgb Conc 31.5 g/dL (32-36); Mean Corpuscular Hgb 30.9 pg (27.0-32.0); Mean Platelet Vol. 9.8 fl (6.2-12.0); Monocyte# 0.52 X10^3/uL; Monocyte% 9.8 % (0-10); NRBC Flagged by Analyzer 0 % (0-5); Neutrophil # 2.81 X10^3/uL (2.7-7.7); Neutrophil % 52.9 % (47-70); Platelet Count 356 K/mm3 (150-450); RBC Distribution Width CV 13.5 % (11.6-14.6); RBC Distribution Width SD 48.5 fl (35.1-43.9); Red Blood Count 3.43 M/mm3 (4.2-5.4); White Blood Count 5.3 K/mm3 (4.4-11.0)
[2023-08-03 08:00] VITALS: BP 146/84; PULSE 85; RESP 18; TEMP 36.6; O2SAT 93
[2023-08-03] MEDS: Ceftriaxone 1 GM/50 ML BAG IV (09:49)
[2023-08-03] MEDS: Pantoprazole Sodium 20 MG Tablet PO (09:59)
[2023-08-03] MEDS: busPIRone 5 MG Tablet 7.5 MG PO ×2 (09:59→23:09)
[2023-08-03] MEDS: APIXABAN 5 MG TABLET 10 MG PO ×2 (09:59→23:09)
[2023-08-03] MEDS: Azithromycin 500 MG in Dextrose 5%-Water (250mL Bag) 250 ML 250 MG IV (10:27)
--- NOTE | 2023-08-03 10:34 | PN_ITS ---
Subjective Subjective Patient seen and examined. She had no active complaints. She is awaiting placement. informs me that she called him late last night very confused. Has been counseled that she would need to be evaluated for dementia in the outpatient setting. Objective Data Objective Data Vital Signs: Vital Signs Temp Pulse Resp BP Pulse Ox O2 Del Method O2 Flow Rate 97.9 F 85 18 146/84 H 93 Nasal Cannula 2 08/03/23 08:00 08/03/23 08:00 08/03/23 08:00 08/03/23 08:00 08/03/23 08:00 08/03/23 08:00 08/03/23 08:00 Oxygen Flow Rate (L/min) 2 Oxygen Delivery Method Nasal Cannula Weight: 124 lb 5.451 oz Body Mass Index (BMI) 22.8 Intake & Output: Intake and Output for Last 24 Hours 08/01/23 08/02/23 08/03/23 23:59 23:59 23:59 Intake Total 1045 / 1545 1245 / 1245 50 / 50 Output Total 2850 / 2850 300 / 300 Balance 1045 / 1545 -1605 / -1605 -250 / -250 Lab / Micro Data 08/03/23 06:00 08/02/23 06:45 Labs: Laboratory Results - last 24 hr 08/03/23 06:00: WBC 5.3, RBC 3.43 L, Hgb 10.6 L, Hct 33.6 L, MCV 98.0, MCH 30.9, MCHC 31.5 L, RDW Std Deviation 48.5 H, RDW Coeff of Mehnaz 13.5, Plt Count 356, MPV 9.8, Immature Gran % (Auto) 1.100 H, Neut % (Auto) 52.9, Lymph % (Auto) 29.8, [place] % (Auto) 9.8, Eos % (Auto) 5.3 H, Baso % (Auto) 1.1 H, Absolute Neuts (auto) 2.8, Absolute Lymphs (auto) 1.58, Nucleated RBC % 0 Micro: Microbiology 07/31/23 04:41 Urine, Clean Catch Legionella Antigen - Final 07/31/23 04:41 Urine, Clean Catch Streptococcus pneumoniae Antigen (M - Final 07/30/23 20:05 Mucosa - Nose Respiratory Panel (PCR) - Final 07/30/23 14:25 Mucosa - Nose SARS-CoV-2, Influenza & RSV (PCR) - Final Physical Exam Const alert and no apparent distress Constitutional Narrative: has episodic confusion General Appearance: cooperative and well developed Orientation / Consciousness: confused HEENT normocephalic and head/scalp atraumatic Eyes PERRL and EOMs intact bilaterally Neck no lymphadenopathy, supple and no JVD Lymph Lymphatic: no lymphedema noted Resp Resp Narrative: mildly diminished breath sounds bibasally, no wheezes or crackles. On 2 L of oxygen by nasal canula Cardio regular rate, regular rhythm, S1 normal heart sound, S2 normal heart sound and no murmurs GI normal to inspection, nondistended, normoactive bowel sounds, soft to palpation and non-tender Extremity normal capillary refill, no clubbing, cyanosis or edema and no calf tenderness Extremity Narrative: LUE in sling General Extremity: no tenderness to palpation of joints or extremities Skin General Skin Exam: no breakdown Neuro CN's II-XII intact bilaterally Neuro Narrative: confused Motor Exam: general weakness Psych Psych Narrative: alert with episodic confusion Assessment & Plan Assessment/Plan (1) Hypoxia: (2) Pneumonia: (3) Fracture of humeral head: (4) Falls: (5) Pulmonary emboli: PLAN: Plan #hypoxia due to community acquired pneumonia * remains on 2L of oxygen by nasal canula * CXR showed acute bilateral multifocal pneumonia * on IV ceftriaxone and azithromycin; completed a 5 day course today, so will dc after today's dose. * Respiratory panel is negative. Urine for strep and Legionella negative. * titrate oxygen to maintain sats >90% * breathing treatment with bronchodilators. * #Acute left sided PE * CTA chest showed evidence of PE * initiated on eliquis; to be on 10mg bid x 7 days (till 08/05), then to switch to PO eliquis 5mg bid. * 2D echo: EF of 60% with normal diastolic function and +1 tricuspid valve insufficiency. * #DEE:resolved. #RIght greater tuberosity displaced fracture * due to mechanical fall from 07/25/2023 * was to follow orthopedic surgery on outpatient basis * RUE currently in sling * orthopedic surgery consulted. Per orthopedic surgery, conservative management for now with range of motion as tolerated. Requested open reduction and internal fixation when patient is stable from acute medical problems. * #Hypokalemia: will replace and trend #GERD: on PPI #Nicotine dependence: now uses a vaping device. Counseled to quit. Nicotine patch 21mg daily. DVT prophylaxis: already on eliquis therapeutic dose for PE. Disposition: awaiting placement Charges/Coding Visit Charges Inpatient E&M: 43851 Subs Hosp L2
[2023-08-03 11:49] LABS: Anion Gap 5 (5-15); BUN 7 mg/dL (7-18); BUN/Creat Ratio 9.8 RATIO (10-20); Calcium,Total 8.7 mg/dL (8.5-10.1); Chloride 114 mmol/L (98-107); Creatinine, Serum 0.72 mg/dL (0.55-1.02); EST Glomerular Filtration Rate 85 mL/min (>60); Est Glom Filt Rate - Afr Amer 103 mL/min (>60); Estimated Creatinine Clearance 47.26 ml/min; Glucose 97 mg/dL (74-106); Potassium 3.7 mmol/L (3.5-5.1); Sodium Level 143 mmol/L (136-145)
--- NOTE | 2023-08-03 13:20 | CASEMGMT ---
Patient was approved for [facility]. A bed will be available tomorrow. SW notified physician. Plan: d/c to [facility] under skilled level of care. Jessenia DAMON
[2023-08-03] MEDS: Ensure Plus High Protein 120 ML LIQUID PO ×3 (13:37→23:23)
[2023-08-03] MEDS: Menthol/Lanolin/Calamine/Znox 113 GM Tube 1 APPLIC TOPICAL ×3 (13:37→23:21)
[2023-08-03 13:41] VITALS: BP 161/88; PULSE 87; RESP 16; TEMP 36.4; O2SAT 97
[2023-08-03 17:00] VITALS: BP 154/84; PULSE 88; RESP 18; TEMP 36.5; O2SAT 95
[2023-08-03 23:00] VITALS: BP 151/87; PULSE 94; RESP 18; TEMP 37.1; O2SAT 97
[2023-08-03] MEDS: DOXEPIN HCL 50 MG CAPSULE 150 MG PO (23:09)
[2023-08-04] VITALS (10 sets, daily range): BP systolic 108–148; BP diastolic 61–82; PULSE 89–102; RESP 16; TEMP 36.7–36.9; O2SAT 87–96; BMI 22.8
[2023-08-04] MEDS: Gabapentin 400 MG Capsule PO ×2 (05:37→11:51)
[2023-08-04] MEDS: clonazePAM 1 MG Tablet PO ×2 (05:38→14:44)
[2023-08-04] MEDS: 0.9% Saline Lock 10 ML Syringe IV (05:52)
[2023-08-04 08:56] LABS: Absolute Lymphocyte Count 1.85 X10^3/uL (0.83-4.51); Absolute Neutrophil Count 4.1 X10^3/uL (2.0-7.7); Basophil# 0.09 X10^3/uL; Basophil% 1.3 % (0-1); Eosinophil# 0.28 X10^3/uL; Hematocrit 37.7 % (37-47); Hemoglobin 11.7 g/dL (12.0-15.0); Lymphocyte # 1.85 X10^3/ul (0.83-4.51); Lymphocyte % 26.5 % (19-41); Mean Corpuscular Hgb 30.2 pg (27.0-32.0); Mean Corpuscular Volume 97.4 fL (81-99); Mean Platelet Vol. 9.5 fl (6.2-12.0); Monocyte# 0.55 X10^3/uL; Monocyte% 7.9 % (0-10); NRBC Flagged by Analyzer 0 % (0-5); Neutrophil # 4.08 X10^3/uL (2.7-7.7); Neutrophil % 58.3 % (47-70); Platelet Count 420 K/mm3 (150-450); RBC Distribution Width CV 13.4 % (11.6-14.6); RBC Distribution Width SD 47.8 fl (35.1-43.9); Red Blood Count 3.87 M/mm3 (4.2-5.4)
[2023-08-04 09:08] LABS: Anion Gap 4 (5-15); BUN 7 mg/dL (7-18); BUN/Creat Ratio 10.2 RATIO (10-20); Calcium,Total 9.1 mg/dL (8.5-10.1); Chloride 111 mmol/L (98-107); Creatinine, Serum 0.69 mg/dL (0.55-1.02); EST Glomerular Filtration Rate 89 mL/min (>60); Est Glom Filt Rate - Afr Amer 108 mL/min (>60); Estimated Creatinine Clearance 47.26 ml/min; Glucose 117 mg/dL (74-106); Potassium 3.7 mmol/L (3.5-5.1); Sodium Level 142 mmol/L (136-145)
[2023-08-04] MEDS: Pantoprazole Sodium 20 MG Tablet PO (09:59)
[2023-08-04] MEDS: busPIRone 5 MG Tablet 7.5 MG PO (09:59)
[2023-08-04] MEDS: APIXABAN 5 MG TABLET 10 MG PO (09:59)
[2023-08-04] MEDS: Menthol/Lanolin/Calamine/Znox 113 GM Tube 1 APPLIC TOPICAL (10:00)
--- NOTE | 2023-08-04 10:50 | DS.PCM_ITS ---
Providers Date of Admission: 07/30/23 Date of Discharge: 08/04/23 Primary Care Physician: Dr. Harish Luis MD Consultations 07/30/23 19:04 Consult: Orthopedics Routine Consulting Provider: Daniel Lee Reason for Consult: Recurrent fall, worsened displaced R greater tuberosity Fx EMERGENT Consult: No MD Notified: Yes Date Notified: 07/30/23 Time Notified: 17:06 Method of Notification: Verbal Reason For Visit: PNA, PE, DEE, HYPOXIA Diagnosis Discharge Diagnosis (1) Hypoxia: Status: Acute Code(s): R09.02 - Hypoxemia (2) Pneumonia: Status: Acute Code(s): J18.9 - Pneumonia, unspecified organism (3) Fracture of humeral head: Status: Acute Code(s): S42.293A - Other displaced fracture of upper end of unspecified humerus, initial encounter for closed fracture (4) Falls: Status: Acute Code(s): W19.XXXA - Unspecified fall, initial encounter (5) Pulmonary emboli: Status: Acute Code(s): I26.99 - Other pulmonary embolism without acute cor pulmonale Plan #hypoxia due to community acquired pneumonia * remains on 2L of oxygen by nasal canula * CXR showed acute bilateral multifocal pneumonia * on IV ceftriaxone and azithromycin; completed a 5 day course today, so will dc after today's dose. * Respiratory panel is negative. Urine for strep and Legionella negative. * titrate oxygen to maintain sats >90% * breathing treatment with bronchodilators. * #Acute left sided PE * CTA chest showed evidence of PE * initiated on eliquis; to be on 10mg bid x 7 days (till 08/05), then to switch to PO eliquis 5mg bid. * 2D echo: EF of 60% with normal diastolic function and +1 tricuspid valve insufficiency. * #DEE:resolved. #RIght greater tuberosity displaced fracture * due to mechanical fall from 07/25/2023 * was to follow orthopedic surgery on outpatient basis * RUE currently in sling * orthopedic surgery consulted. Per orthopedic surgery, conservative management for now with range of motion as tolerated. Requested open reduction and internal fixation when patient is stable from acute medical problems. * #Hypokalemia: will replace and trend #GERD: on PPI #Nicotine dependence: now uses a vaping device. Counseled to quit. Nicotine patch 21mg daily. DVT prophylaxis: already on eliquis therapeutic dose for PE. Disposition: awaiting placement Medications at Discharge Home Medications buspirone 7.5 mg tablet 7.5 mg PO BID Check with primary doctor 02/17/20 clonazepam 1 mg tablet 1 mg PO TID anxiety 02/17/20 gabapentin 400 mg capsule 400 mg PO Q6H Check with primary doctor 04/20/22 acetaminophen 325 mg tablet 650 mg (2 x 325 mg) PO Q6H PRN PRN Pain 1-10 Or Fever >100.7 #0 tabs 08/02/22 tramadol 50 mg tablet 50 mg PO Q6H PRN pain 3 days #12 tabs 03/17/23 doxepin 150 mg capsule 150 mg PO QHS 07/30/23 metoprolol succinate 25 mg tablet,extended release 24 hr 25 mg PO DAILY 07/30/23 omeprazole 20 mg capsule,delayed release 20 mg PO DAILY 07/30/23 apixaban 5 mg tablet (Eliquis) 5 mg PO BID #60 tabs 08/04/23 Hospital Course Operations None Procedures 2-D Echocardiogram Summary of Care Provided Minutes Spent on Discharge: 48 Hospital Course: Patient is a 73-year-old female with a past medical history as outlined was admitted through the ED on 07/30/2023 with a complaint of altered Bellatal status. She was found on the ground in the living room in the stock letterer by her . Her mentation did improve somewhat but later found her screaming with her face down in the garage with abrasions to her face. She had a history of multiple falls and surgery was worried she had fallen. She also had mild cough and some shortness of breath which worsened with exertion. She had also had so congested wet to 3 weeks prior to admission. In the ED CT of the brain showed no acute intracranial pathology. Chest x-ray showed bilateral lower lung infiltrates possibly pneumonia versus edema. CT of the chest showed PE in the distal left main pulmonary artery extending to the proximal left upper lobe branch with extensive patchy bilateral infiltrates predominantly in the lower lungs concerning for multifocal pneumonia. She was initially admitted and managed for pneumonia, on IV Rocephin and azithromycin. She was started on therapeutic Eliquis for PE. He was also treated for DEE. Patient has states sustained a fall on 07/25/2023 with resultant right shoulder greater tuberosity fracture. She was follow-up with Dr. Lee on outpatient basis but had not yet done so. Orthopedic surgery was therefore consulted and right upper extremity placed in a sling. Orthopedic surgery recommended that she follow-up on outpatient basis and to have conservative management for now. Sputum culture sent urine for strep and Legionella were negative. 2D echo done showed EF of 60% with normal diastolic function and mitral 1+ tricuspid valve insufficiency. Her shortness of breath did improve and she did much better. She remained on 2L of oxygen. Respiratory panel was also negative. She completed a 5-day course of IV antibiotics. She remained stable. Patient and family were initially agreeable to her going to a longterm facility due to intermittent confusion. However her subsequently decided that he wanted to go home. She was therefore discharged home on 08/04/2023. She is to follow-up with her primary care doctor within 1 to 2 weeks. She was discharged on therapeutic course of Eliquis. Patient seen and examined prior to discharge. She had no active complaints and had an uneventful night. Review of systems otherwise negative. Labs and vitals reviewed. Home medication reviewed and reconciled. Physical Exam Const alert and no apparent distress Constitutional Narrative: has episodic confusion General Appearance: cooperative, comfortable and well developed Orientation / Consciousness: awake and confused HEENT normocephalic and head/scalp atraumatic Mouth: oral and palatal mucosa normal Eyes PERRL and EOMs intact bilaterally Neck no lymphadenopathy, supple and no JVD Lymph Lymphatic: no lymphadenopathy noted and no lymphedema noted Resp Resp Narrative: mildly diminished breath sounds bibasally, no wheezes or crackles. On 2 L of oxygen by nasal canula Cardio regular rate, regular rhythm, S1 normal heart sound, S2 normal heart sound and no murmurs GI normal to inspection, nondistended, normoactive bowel sounds, soft to palpation and non-tender Extremity normal capillary refill, no clubbing, cyanosis or edema and no calf tenderness Extremity Narrative: RUE in sling General Extremity: no tenderness to palpation of joints or extremities Skin no rashes or lesions noted General Skin Exam: no breakdown Neuro CN's II-XII intact bilaterally Neuro Narrative: confused Motor Exam: general weakness Psych Psych Narrative: alert with episodic confusion Weight / BMI Weight Weight: 124 lb 5.451 oz Body Mass Index (BMI) 22.8 ABG / Lab / Microbiology Data 08/04/23 08:45 08/04/23 08:45 Laboratory: Laboratory Results - last 24 hr 08/03/23 06:05: Sodium 143, Potassium 3.7, Chloride 114 H, Carbon Dioxide 24.0, Anion Gap 5, BUN 7, Creatinine 0.72, Estim Creat Clear Calc 47.26, Est GFR (MDRD) Af Amer 103, Est GFR (MDRD) Non-Af 85, BUN/Creatinine Ratio 9.8 L, Glucose 97, Calcium 8.7 08/04/23 08:45: WBC 7.0, RBC 3.87 L, Hgb 11.7 L, Hct 37.7, MCV 97.4, MCH 30.2, M CHC 31.0 L, RDW Std Deviation 47.8 H, RDW Coeff of Mehnaz 13.4, Plt Count 420, MPV 9.5, Immature Gran % (Auto) 2.000 H, Neut % (Auto) 58.3, Lymph % (Auto) 26.5, [place] % (Auto) 7.9, Eos % (Auto) 4.0, Baso % (Auto) 1.3 H, Absolute Neuts (auto) 4.1, Absolute Lymphs (auto) 1.85, Nucleated RBC % 0, Sodium 142, Potassium 3.7, Chloride 111 H, Carbon Dioxide 27.0, Anion Gap 4 L, BUN 7, Creatinine 0.69, Estim Creat Clear Calc 47.26, Est GFR (MDRD) Af Amer 108, Est GFR (MDRD) Non-Af 89, BUN/Creatinine Ratio 10.2, Glucose 117 H, Calcium 9.1 Microbiology: Microbiology 07/31/23 04:41 Urine, Clean Catch Legionella Antigen - Final 07/31/23 04:41 Urine, Clean Catch Streptococcus pneumoniae Antigen (M - Final 07/30/23 20:05 Mucosa - Nose Respiratory Panel (PCR) - Final 07/30/23 14:25 Mucosa - Nose SARS-CoV-2, Influenza & RSV (PCR) - Final D/C Instructions Discharge Diet: Low fat / Low cholesterol Discharge Activity: Return to Normal Activity Weight Bearing Status: Weight bearing as tolerated Call your doctor if you observe: Fever of 101 or Higher, Shortness of breath, Dizziness, Swelling in the ankles and Chest pain Meaningful Use Info Meaningful Use Meaningful Use Diagnoses (Choose all that apply): None applicable Ischemic Stroke Statin Dosing Therapy Reference: STATIN DOSE THERAPY REFERENCE: * Patients > 75 years receive moderate or high dose statin therapy. * Patients 75 years or YOUNGER should receive HIGH intensity statin dose unless contraindicated. You will be required to document reason for non-treatment if statin daily dose does not meet guidelines. HIGH DOSE STATIN THERAPY DAILY Atorvastatin > than or = to 40 mg Rosuvastatin > than or = to 20 mg Amlodipine + Atorvastatin > than or = to 2.5/40 mg Ezetimibe + Simvastatin 10/80 mg Simvastatin 80mg Discharge Plan Admission Admit Date/Time: 07/30/23 17:05 Primary Reason for Your Visit: pneumonia Attending Provider: Sondra Rooney Primary Care Provider: Harish Luis Chi Consulting Providers: Daniel Lee; Anastasia Khan Instructions Patient Instructions: ED Pneumonia (Adult) Discharge Orders/Prescriptions Prescriptions: New Eliquis 5 mg tablet 5 mg PO BID Qty: 60 2RF Rx Instructions: take 2 tabs (10mg) twice daily till 08/06/2023, then continue with one tablet (5mg) twice daily Continued clonazepam 1 MG tablet 1 mg PO TID buspirone 7.5 MG tablet 7.5 mg PO BID gabapentin 400 mg capsule 400 mg PO Q6H acetaminophen 325 mg Tablet 650 mg PO Q6H PRN PRN (Reason: Pain 1-10 Or Fever >100.7) Qty: 0 0RF tramadol 50 mg tablet 50 mg PO Q6H PRN (Reason: pain) 3 Days Qty: 12 0RF omeprazole 20 mg capsule,delayed release(DR/EC) 20 mg PO DAILY metoprolol succinate 25 mg tablet extended release 24 hr 25 mg PO DAILY doxepin 150 mg capsule 150 mg PO QHS Referrals / Follow Up: Daniel Lee MD [Med Staff - Active Staff] - Within 2 Weeks Harish Luis Chi, MD [Primary Care Provider] - Within 1 Week Disposition Disposition (needs filled in before D/C Order can be placed): Home, Self Care Charges/Coding Visit Charges Inpatient E&M: 27505 Disch Hosp >30min
--- NOTE | 2023-08-04 11:43 | CASEMGMT ---
HERON ARREDONDO NOTE: VM received from pt's stating that pt is wishing to discharge home, that he is wanting to take her home, and that he will be requesting that the doctor discharge her home today. Dr Rooney is aware of same. Therapy notes from today reviewed. Pt ambulated 25 ft w/use of sumi-walker and CGA and additional therapy recommended. HERON ARREDONDO to room. Introduced self and role to pt and , who is at bedside. Pt states she felt she did well w/therapy today and feels safe to discharge home. states he was in the room when therapy worked w/pt and he also feels pt will be safe @ home. Discussed HHC and OP therapy. They both declined both HHC and OP ther. They were made aware, if they change their mind once pt returns home, to f/u with PCP. They voice understanding. Pt would like a sumi-walker. They were made aware this can not be obtained on the weekend by a DME supply co, but a script can be provided to them and they can take the script to any DME location of choice on Sunday. A list of DME co's provided. states they do have a quad cane he will get out for pt to use until this can be obtained and he and pt both feel she will be safe with use of this. They deny having other discharge needs or concerns. Script for sumi-walker prepared and sent to Dr Rooney to sign. Script to be given to pt/ when available. 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 Lamberto CHARLES RN, CM
[2023-08-04] MEDS: Metoprolol(XL)Succ 25 MG Tablet PO (11:51)
--- NOTE | 2023-08-04 14:11 | NURSING ---
After hours [employer] line called to set up new O2. Faxed face sheet, order, and qualifying documentation to [employer]. Pt provided with tank.
== END 2023-08-04 15:12 | disposition home or self-care (01) | DRG 193 ==
LOC: ED 15:50 → PCU 18:18
PROVIDERS: Nurse Practitioner; Admitting Provider Family Medicine; Emergency Provider Emergency Medicine; PCP Family Medicine Geriatric Medicine; Visit Provider Student in an Organized Health Care Education/Training Program
DX: J15.9 Unspecified bacterial pneumonia (principal); I26.99 Other pulmonary embolism without acute cor pulmonale; N17.9 Acute kidney failure, unspecified; S42.251A Displaced fracture of greater tuberosity of right humerus, initial encounter for closed fracture; I10 Essential (primary) hypertension; E87.6 Hypokalemia; K21.9 Gastro-esophageal reflux disease without esophagitis; E78.00 Pure hypercholesterolemia, unspecified; F17.290 Nicotine dependence, other tobacco product, uncomplicated; W18.30XA Fall on same level, unspecified, initial encounter; R29.6 Repeated falls; Z79.899 Other long term (current) drug therapy; Z86.16 Personal history of COVID-19; Z79.891 Long term (current) use of opiate analgesic
CPT/HCPCS: 36415; 70450; 70486; 71045; 71275; 72125; 73030; 74019; 74230; 80048; 80053; 80307; 81001; 82140; 82803; 83605; 83735; 83880; 84145; 84484; 85025; 85379; 87449; 87631; 87633; 87641; 92526; 92610; 92611; 93005; 93306; 97110; 97116; 97162; 97166; 97530; 97535; 97802; 97803; 99285; J7030; J7050; P9612; Q9967; A4216

== ENCOUNTER → 2023-08-08 | Outpatient (CLI) | payer MEDICARE, SELFPAY ==
[2023-08-08 15:31] LABS: Anion Gap 6 (5-15); BUN 7 mg/dL (7-18); BUN/Creat Ratio 7.6 RATIO (10-20); Calcium,Total 9.1 mg/dL (8.5-10.1); Chloride 109 mmol/L (98-107); Creatinine, Serum 0.93 mg/dL (0.55-1.02); EST Glomerular Filtration Rate 63 mL/min (>60); Est Glom Filt Rate - Afr Amer 76 mL/min (>60); Glucose 98 mg/dL (74-106); Potassium 3.9 mmol/L (3.5-5.1); Sodium Level 141 mmol/L (136-145)
== END | disposition home or self-care (01) ==
LOC: LAB 14:10
PROVIDERS: PCP Family Medicine Geriatric Medicine; Referring Provider Family Medicine Geriatric Medicine; Visit Provider Family Medicine Geriatric Medicine
DX: I10 Essential (primary) hypertension (principal)
CPT/HCPCS: 36415; 80048

== ENCOUNTER 2023-08-11 07:33 | Emergency (ER) | payer MEDICARE, SELFPAY ==
[2023-08-11 07:33] VITALS: BP 131/72; PULSE 72; RESP 14; TEMP 36.1; O2SAT 94
--- NOTE | 2023-08-11 07:49 | RAD_ITS ---
STUDY: X-RAY - RIGHT SHOULDER REASON FOR EXAM: Female, 73 years old. fall and pain TECHNIQUE: 2 view(s) of the shoulder. COMPARISON: Right shoulder x-ray dated May 30, 2023 FINDINGS: Reidentification of a healed impaction fracture deformity of the greater tuberosity and posterior lateral aspect of the humeral head/Hill-Sachs deformity. No visualized acute fractures of the shoulder or humeral shaft down to the elbow joint. The glenohumeral articulation is moderately narrowed. There is no osseous destructive process. A displaced fracture fragment is also present in the subacromial region. Normal acromioclavicular joint. Normal acromion. The soft tissue structures are unremarkable. Normal visualized pulmonary apex. RAD/Shoulder min 2 Views IMPRESSION: 1. Healed impaction fracture deformity of the greater tuberosity and posterior lateral aspect of the humeral head/Hill-Sachs deformity. No visualized acute osseous abnormalities on the current study. Electronically Signed: Bill Beaulieu MD at 8:41 EDT ,
--- NOTE | 2023-08-11 07:49 | RAD_ITS ---
STUDY: X-RAY - RIGHT HUMERUS REASON FOR EXAM: Female, 73 years old. tram nd pain TECHNIQUE: 2 view(s) of the humerus. COMPARISON: Right shoulder x-ray dated July 30, 2023 FINDINGS: Reidentification of a healed impaction fracture deformity of the posterior lateral aspect of the humeral head/Hill-Sachs deformity. No visualized acute fractures of the shoulder or humeral shaft down to the elbow joint. The glenohumeral articulation is moderately narrowed. There is no osseous destructive process. High riding humeral head abutting the undersurface of the acromion is consistent with a full-thickness rotator cuff tear. There is no demonstrated soft tissue abnormality. RAD/Humerus min 2 Views IMPRESSION: 1. Healed impaction fracture deformity of the humeral head/Hill-Sachs deformity. No visualized acute osseous abnormalities on the current study. Electronically Signed: Bill Beaulieu MD at 8:36 EDT ,
--- NOTE | 2023-08-11 07:50 | EDS_ITS ---
HPI HPI - Fall History of Present Illness Chief Complaint: Fall Informant: patient and spouse/S.O. Occured/Mechanism Occurred: Yesterday Mechanism/Context: Yes same level fall and No prodromal Usually ambulates: Without assistance Pain/Injury Pain Location: upper extremity Quality of Pain: Dull and Aching Current Severity: Moderate Maximum Severity: Moderate Associated Symptoms Associated Symptoms: Negative for Parasthesias, Weakness, Loss of function, Inability to ambulate, Loss of consciousness or Amnesia Narrative Narrative: 73-year-old female history of pulmonary emboli on Eliquis was recently hospitalized a week ago. States that she fell at home yesterday in her kitchen landing on tile floor. Complaining of pain in her right shoulder and upper arm. Did not hit her head. Complaining of pain in her right shoulder and upper arm. Denies other injuries. No recent illness. Prior similar symptoms: Yes Recent Illness/Hospitalization: Yes [facility] Medical History Anxiety and depression Cervical stenosis of spine Vitamin D deficiency Irritable bowel syndrome without diarrhea Stenosis, cervical spine Chronic cough Allergic rhinitis Insomnia HLD (hyperlipidemia) Movement disorder Gastroparesis Dysphagia Pain from implanted hardware Wears hearing aid Wears dentures Wears glasses Post-menopausal Uses wheelchair Walker as ambulation aid Ambulates with cane Arthritis High cholesterol Back pain Migraine headache Gastric reflux Former smoker Shortness of breath on exertion History of stress test Hypertension COVID-19 Scoliosis of lumbar spine Segmental and somatic dysfunction of pelvic region Segmental dysfunction of thoracic region Segmental and somatic dysfunction of lumbar region Carpal tunnel syndrome on both sides Chronic lower back pain Home Medications ?Medication ?Instructions ?Recorded ?Last Taken ?Type buspirone 7.5 mg tablet 7.5 mg PO BID Check with primary 02/17/20 04/26/22 History doctor clonazepam 1 mg tablet 1 mg PO TID anxiety 02/17/20 04/26/22 History gabapentin 400 mg capsule 400 mg PO Q6H Check with primary 04/20/22 04/26/22 History doctor acetaminophen 325 mg tablet 650 mg (2 x 325 mg) PO Q6H PRN PRN 08/02/22 Unknown Rx Pain 1-10 Or Fever >100.7 #0 tabs tramadol 50 mg tablet 50 mg PO Q6H PRN pain 3 days #12 03/17/23 Unknown Rx tabs doxepin 150 mg capsule 150 mg PO QHS 07/30/23 Unknown History metoprolol succinate 25 mg 25 mg PO DAILY 07/30/23 Unknown History tablet,extended release 24 hr omeprazole 20 mg capsule,delayed 20 mg PO DAILY 07/30/23 Unknown History release apixaban 5 mg tablet (Eliquis) 5 mg PO BID #60 tabs 08/04/23 Unknown Rx Allergy/AdvReac Type Severity Reaction Status Date / Time hydrocodone (From Vicodin) Allergy NERVOUS, Verified 08/11/23 07:37 JITTERY Penicillins Allergy Rash Verified 08/11/23 07:37 Family History Mother Hypertension CVA (cerebral vascular accident) Heart disease Cerebral hemorrhage Father Cancer Hx stomach cancer and leukemia. Surgical History History of cardiac catheterization Hx of dilation and curettage History of 2 sections Hx of surgical procedure History of lumbar laminectomy Social History household members: spouse housing: house number of children: 2 Smoking Status: Current every day smoker tobacco type: e-cigarettes alcohol intake: never substance use type: does not use what type of physical activity do you participate in: none additional social history: Currently ambulating with a cane ROS ROS ED ROS Narrative Denies recent illness. Review of Systems ROS Unobtainable: Denies due to encephalopathy Constitutional Constitutional ED: Denies chills or fever(s) Eyes Eyes: Denies blurry vision Cardiovascular Cardiovascular: Denies chest pain Respiratory/Chest Respiratory/Chest: Denies cough Gastrointestinal Gastrointestinal: Denies abdominal pain Genitourinary Genitourinary ED: Denies dysuria Musculoskeletal Musculoskeletal: Denies arthralgias Integumentary Denies abscess Neurologic Neurologic: Denies headache(s) Psychiatric Psychiatric: Denies anxiety Hematologic/Lymphatic Hematologic/Lymphatic: Reports easy bleeding, easy bruising and other Details: On Eliquis. Allergic/Immunologic Allergic/Immunologic ED: Denies mouth swelling, tongue swelling or urticaria EXAM Physical Exam Narrative Exam Narrative: Well-appearing 73-year-old female. Vital signs stable afebrile. H EENT exam pupils round react to light. She has an old bruise on the left forehead does not from the most recent fall. Scalp nontender no hematoma. C-spine and neck nontender. Lungs clear. Heart regular rhythm no murmur. Rate about 70. Chest wall and ribs nontender. Abdomen soft nontender. Pelvic girdle and hips nontender. Normal flexion extension of both hips knees and ankles. Normal dorsi plantarflexion. Legs are nontender. Right shoulder is tender and bruised as his right midportion of the upper arm. She has limited range of motion of the right upper arm due to pain. Right elbow, forearm and wrist are nontender. 5 and 5 clinic assistant strength both hands. Left upper extremity unremarkable. Back nontender no bruising. Neurologically she is awake and alert no focal motor deficits. Const Vital Signs: 08/11/23 07:33 08/11/23 07:57 Temperature 97 F L Temperature Source Temporal Pulse Rate 72 Respiratory Rate 14 Respiratory Effort Normal Non-Labored Respiratory Depth Normal Respiratory Pattern Normal Blood Pressure 131/72 H Blood Pressure Mean 91 Pulse Ox 94 Oxygen Delivery Method Room Air Room Air Positive well nourished and well developed; Negative for obese, cachectic, contractures or unkempt General Appearance ED: well developed and NAD; Negative for unkempt, cachectic or contractures Nutritional Appearance: Negative for cachectic or obese HEENT Reports normocephalic atraumatic; Negative for trauma, contusion, hematoma or tenderness Eyes PERRL and EOMs intact bilaterally General Eye ED: Negative for pale conjunctiva or scleral icterus Neck full ROM, no lymphadenopathy and supple General: Negative for tenderness Chest Wall inspection of chest normal and palpation of chest normal Chest: Negative for other Resp normal respiratory effort, no retractions and clear to auscultation bilaterally Auscultation: Negative for rales, rhonchi or wheezes Cardio regular rate, regular rhythm, S1 normal heart sound, S2 normal heart sound and no murmurs Rate: Negative for bradycardia or tachycardic Rhythm: Negative for abnormal rhythm Bruits: Negative for other GI non-tender, non-distended and no masses Inspection: Negative for abdominal distention Auscultation: normoactive bowel sounds Palpation: soft; Negative for guarding or rebound tenderness present Back/Spine no CVA tenderness General Back: Negative for CVA tenderness Cervical Spine: Negative for cervical spine tenderness Thoracic Spine / Upper Back: Negative for ROM limited or pain with ROM Lumbar Spine / Lower Back: Negative for lumbar spinal tenderness Extremity Extremity Narrative: Tenderness and bruising right shoulder and right upper arm. Decreased range of motion. No deformity. Elbow and hand nontender. Normal clinic assistant strength. Neuro oriented x3, CN's II-XII intact bilaterally, moves all extremities and no focal motor deficits Sensorium / Orientation: alert, oriented to person, oriented to place and oriented to time; Negative for orientation impaired, confused, lethargic or stuporous Motor Exam: strength 5/5 throughout Psych mental status grossly normal and thought process normal Appearance: Negative for unkempt Attitude: No agitated Mood & Affect: Negative for depressed, anxious or tearful Skin General Skin Exam: Negative for other Lesions: no lesions Rashes: no rashes Trauma: Negative for abrasion or laceration MDM MDM MDM Narrative Medical decision making narrative: 73-year-old fell denies head injury. Complaining of right shoulder right upper arm pain. X-rays being obtained. She requested some for pain she will be given a Percocet. I do not think she needs any imaging of her brain. Again she has nontender scalp and face. And denies hitting her head. Repeat exam patient doing well at 9:50 PM. We went over her x-rays. She will be discharged home. Ice all sore areas. Tylenol for pain. We discussed her x- ray results. History & Record Review Discussion w/independent historian: Patient and Family Radiography Diagnostic Testing: Clinical Impression(s) from Imaging Studies Humerus X-Ray 08/11/23 07:49 IMPRESSION: 1. Healed impaction fracture deformity of the humeral head/Hill-Sachs deformity. No visualized acute osseous abnormalities on the current study. Electronically Signed: Bill Beaulieu MD at 8:36 EDT Reading Location ID and State: [facility] / [place] , Service support , Shoulder X-Ray 08/11/23 07:49 IMPRESSION: 1. Healed impaction fracture deformity of the greater tuberosity and posterior lateral aspect of the humeral head/Hill-Sachs deformity. No visualized acute osseous abnormalities on the current study. Electronically Signed: Bill Beaulieu MD at 8:41 EDT , Right shoulder x-ray, 3 views, interpreted by myself and the radiologist shows an old humeral head fracture. No acute injury. [place]-Sachs deformity. Right humerus x-ray, 2 views, interpreted by myself and radiologist again shows old humeral head fracture that is healed but no acute fracture or dislocation. Discharge Plan Triage Chief Complaint: Fall ED Provider: Guilherme Collins Dx/Rx/DC Orders Prescriptions: No Action clonazepam 1 MG tablet 1 mg PO TID buspirone 7.5 MG tablet 7.5 mg PO BID gabapentin 400 mg capsule 400 mg PO Q6H acetaminophen 325 mg Tablet 650 mg PO Q6H PRN PRN (Reason: Pain 1-10 Or Fever >100.7) Qty: 0 0RF tramadol 50 mg tablet 50 mg PO Q6H PRN (Reason: pain) 3 Days Qty: 12 0RF omeprazole 20 mg capsule,delayed release(DR/EC) 20 mg PO DAILY metoprolol succinate 25 mg tablet extended release 24 hr 25 mg PO DAILY doxepin 150 mg capsule 150 mg PO QHS Eliquis 5 mg tablet 5 mg PO BID Qty: 60 2RF Rx Instructions: take 2 tabs (10mg) twice daily till 08/06/2023, then continue with one tablet (5mg) twice daily Primary Care Provider: Harish Luis Chi Referrals: Harish Luis Chi, MD [Primary Care Provider] - Print Language: Mongolian
[2023-08-11] MEDS: Oxycodone/Apap 5/325 Tablet PO (07:53)
[2023-08-11 10:03] VITALS: BP 153/88; PULSE 74; RESP 18; TEMP 36.7; O2SAT 100
== END 2023-08-11 10:09 | disposition home or self-care (01) ==
LOC: ED 08:08
PROVIDERS: Emergency Provider Emergency Medicine; PCP Family Medicine Geriatric Medicine; Visit Provider Emergency Medicine
DX: Z04.3 Encounter for examination and observation following other accident (principal); I10 Essential (primary) hypertension; Z79.01 Long term (current) use of 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s; F17.290 Nicotine dependence, other tobacco product, uncomplicated; Z79.899 Other long term (current) drug therapy; Z86.16 Personal history of COVID-19; Z86.711 Personal history of pulmonary embolism
CPT/HCPCS: 73030; 73060; 99282

== ENCOUNTER 2023-08-29 14:53 | Emergency (ER) | payer MEDICARE, SELFPAY ==
[2023-08-29 14:54] VITALS: BP 138/87; PULSE 112; RESP 16; TEMP 36.7; O2SAT 95
--- NOTE | 2023-08-29 15:05 | ED.VIS.FALL ---
HPI HPI - Fall History of Present Illness Chief Complaint: Fall Informant: patient and spouse/S.O. Occured/Mechanism Occurred: Yesterday Narrative: fell onto low back, not buttocks Usually ambulates: Cane Pain/Injury Pain Location: back Quality of Pain: Aching Current Severity: Moderate Maximum Severity: Moderate Worsened by: moving Relieved by: remaining still Associated Symptoms Associated Symptoms: Negative for Parasthesias, Weakness, Loss of function or Inability to ambulate Narrative Narrative: Patient states she was getting up from a chair that had wheels on it, it rolled out from under her sooner than expected causing her to fall onto her back. She denies any other injury, just having low back pain. No bowel or bladder dysfunction. She has some chronic mild numbness in her right thigh at times but states that has been off and on for 20 years since her laminectomy, she denies any new numbness or saddle anesthesia, and no radiation of pain down either leg. She tried tramadol earlier but it did not help. [facility] Medical History Hypoxia Fracture of humeral head [place] Pulmonary emboli Hypoxia Aspiration pneumonia Closed head injury Anxiety and depression Cervical stenosis of spine Vitamin D deficiency Irritable bowel syndrome without diarrhea Stenosis, cervical spine Chronic cough Allergic rhinitis Insomnia HLD (hyperlipidemia) Movement disorder Gastroparesis Dysphagia Pain from implanted hardware Wears hearing aid Wears dentures Wears glasses Post-menopausal Uses wheelchair Walker as ambulation aid Ambulates with cane Arthritis High cholesterol Back pain Migraine headache Gastric reflux Former smoker Shortness of breath on exertion History of stress test Hypertension COVID-19 Scoliosis of lumbar spine Segmental and somatic dysfunction of pelvic region Segmental dysfunction of thoracic region Segmental and somatic dysfunction of lumbar region Carpal tunnel syndrome on both sides Chronic lower back pain Home Medications ?Medication ?Instructions ?Recorded ?Last Taken ?Type buspirone 7.5 mg tablet 7.5 mg PO BID Check with primary 02/17/20 04/26/22 History doctor clonazepam 1 mg tablet 1 mg PO TID anxiety 02/17/20 04/26/22 History gabapentin 400 mg capsule 400 mg PO Q6H Check with primary 04/20/22 04/26/22 History doctor acetaminophen 325 mg tablet 650 mg (2 x 325 mg) PO Q6H PRN PRN 05/17/23 Unknown Rx Pain 1-10 Or Fever >100.7 #0 tabs tramadol 50 mg tablet 50 mg PO Q6H PRN pain 3 days #12 03/17/23 Unknown Rx tabs doxepin 150 mg capsule 150 mg PO QHS 07/30/23 Unknown History metoprolol succinate 25 mg 25 mg PO DAILY 07/30/23 Unknown History tablet,extended release 24 hr omeprazole 20 mg capsule,delayed 20 mg PO DAILY 07/30/23 Unknown History release apixaban 5 mg tablet (Eliquis) 5 mg PO BID #60 tabs 08/04/23 Unknown Rx hydrocodone-acetaminophen 5-325mg 1 tab PO Q6H PRN PRN Pain 3 days 08/29/23 Unknown Rx 5mg-325mg #10 TABLETS Allergy/AdvReac Type Severity Reaction Status Date / Time Penicillins Allergy Rash Verified 08/29/23 14:56 Family History Mother Hypertension CVA (cerebral vascular accident) Heart disease Cerebral hemorrhage Father Cancer Hx stomach cancer and leukemia. Surgical History History of cardiac catheterization Hx of dilation and curettage History of 2 sections Hx of surgical procedure History of lumbar laminectomy Social History household members: spouse housing: house number of children: 2 Smoking Status: Current every day smoker tobacco type: e-cigarettes alcohol intake: never substance use type: does not use what type of physical activity do you participate in: none additional social history: Currently ambulating with a cane ROS ROS ED Constitutional Constitutional ED: Denies chills or fever(s) Gastrointestinal Gastrointestinal: Denies abdominal pain, constipation, fecal incontinence, nausea or vomiting Genitourinary Genitourinary ED: Reports other Details: no urinary retention ; Denies abdominal discomfort or urinary incontinence Musculoskeletal Musculoskeletal: Reports as per HPI and back pain; Denies neck pain Integumentary Denies rash or wounds Neurologic Neurologic: Denies headache(s), paresthesias or weakness EXAM Physical Exam Const Vital Signs: 08/29/23 14:54 08/29/23 15:13 Temperature 98.1 F Temperature Source Temporal Pulse Rate 112 H Respiratory Rate 16 Respiratory Effort Normal Respiratory Depth Normal Respiratory Pattern Normal Blood Pressure 138/87 H Blood Pressure Mean 104 Pulse Ox 95 Oxygen Delivery Method Room Air Room Air Positive well nourished and well developed General Appearance ED: well developed and NAD HEENT Negative for trauma or tenderness Eyes PERRL and EOMs intact bilaterally Neck full ROM and supple GI normal to inspection, nondistended, normoactive bowel sounds, soft to palpation and non-tender Back/Spine normal to inspection Lumbar Spine / Lower Back: paraspinal muscle tenderness bilateral (And including pelvic brims bilaterally; no crepitance or step-off or obvious signs of trauma externally) and straight leg raise negative bilaterally; Negative for ROM limited or lumbar spinal tenderness Extremity normal to inspection, full ROM and no pedal edema Neuro oriented x3 and no sensory deficits noted Sensorium / Orientation: alert Motor Exam: strength 5/5 throughout and clonus absent Deep Tendon Reflexes: Rt Patellar (L4): 2+, Lt Patellar (L4): 2+, Rt Ankle (S1): 2+ and Lt Ankle (S1): 2+ Deep Tendon Reflexes Back: Rt Patellar (L4): 2+, Lt Patellar (L4): 2+, Rt Ankle (S1): 2+ and Lt Ankle (S1): 2+ Plantar Reflex: Downgoing: bilateral Psych mental status grossly normal and thought process normal Skin no rashes or lesions noted and no wounds MDM MDM MDM Narrative Medical decision making narrative: Three-view x-ray series of the lumbosacral spine on my interpretation shows chronic abnormalities but no acute fractures. Radiology in agreement. Patient was given a [place] which she states did help and she is asking for more. Of note it was on her allergy list as an intolerance, we discussed that before we gave it to her, she said that was old and she no longer has had reaction and asked us to remove it from her list which I did, she was given it, and tolerated it without any symptoms or problems. Radiography Diagnostic Testing: Clinical Impression(s) from Imaging Studies Lumbar Spine X-Ray 08/29/23 15:30 IMPRESSION: Marked degree of dextroscoliosis with reversal of the normal lumbar lordosis. Multilevel disc space narrowing with loss of height of the L3 and L4 vertebrae. Stable examination. Electronically Signed: Rafael Sherwood MD at 15:41 EDT , Discharge Plan Triage Chief Complaint: Fall ED Provider: Xu Macias Dx/Rx/DC Orders Clinical Impression: Contusion of lower back, Accidental fall from chair Instructions: ED Back Contusion Prescriptions: New hydrocodone-acetaminophen 5-325 mg tablet 1 tab PO Q6H PRN PRN (Reason: Pain) 3 Days Qty: 10 0RF No Action clonazepam 1 MG tablet 1 mg PO TID buspirone 7.5 MG tablet 7.5 mg PO BID gabapentin 400 mg capsule 400 mg PO Q6H acetaminophen 325 mg Tablet 650 mg PO Q6H PRN PRN (Reason: Pain 1-10 Or Fever >100.7) Qty: 0 0RF tramadol 50 mg tablet 50 mg PO Q6H PRN (Reason: pain) 3 Days Qty: 12 0RF omeprazole 20 mg capsule,delayed release(DR/EC) 20 mg PO DAILY metoprolol succinate 25 mg tablet extended release 24 hr 25 mg PO DAILY doxepin 150 mg capsule 150 mg PO QHS Eliquis 5 mg tablet 5 mg PO BID Qty: 60 2RF Rx Instructions: take 2 tabs (10mg) twice daily till 08/06/2023, then continue with one tablet (5mg) twice daily Primary Care Provider: Harish Luis Chi Referrals: Harish Luis Chi, MD [Primary Care Provider] - 1 Week if not improving Activity Restrictions/Additional Instructions: Do not mix tramadol with hydrocodone. Print Language: Wolof Disposition Disposition: Home, Self Care
[2023-08-29] MEDS: HYDROcodone Bitartrate/Apap 5/325 Tablet PO (15:17)
--- NOTE | 2023-08-29 15:30 | RAD_ITS ---
STUDY: X-RAY - LUMBAR SPINE REASON FOR EXAM: Female, 73 years old. Fall/pain TECHNIQUE: 2 view(s) of the lumbar spine were obtained. COMPARISON: Comparison is made with prior study dated March 17, 2023. FINDINGS: There is reversal of the normal lumbar lordosis. There is a dextroscoliosis of the lumbar spine. There is a normal alignment of the vertebrae. There is diffuse demineralization with multi-level endplate spondylosis. There is multi-level degenerative disc disease with multi-level disc space narrowing. Loss of height of the L3 and L4 vertebrae. A spinal cord stimulator device is seen. RAD/Lumbar Spine 2 or 3 Views IMPRESSION: Marked degree of dextroscoliosis with reversal of the normal lumbar lordosis. Multilevel disc space narrowing with loss of height of the L3 and L4 vertebrae. Stable examination. Electronically Signed: Rafael Sherwood MD at 15:41 EDT ,
[2023-08-29 16:37] VITALS: BP 130/74; PULSE 95; RESP 16; TEMP 36.9; O2SAT 97
== END 2023-08-29 16:38 | disposition home or self-care (01) ==
PROVIDERS: Emergency Provider Emergency Medicine; PCP Family Medicine Geriatric Medicine; Visit Provider Emergency Medicine
DX: S20.229A Contusion of unspecified back wall of thorax, initial encounter (principal); F17.290 Nicotine dependence, other tobacco product, uncomplicated; W07.XXXA Fall from chair, initial encounter; Z86.711 Personal history of pulmonary embolism; Z86.16 Personal history of COVID-19
CPT/HCPCS: 72100; 99282

== ENCOUNTER 2023-11-28 11:00 | Outpatient (RCR) | payer MEDICARE, SELFPAY ==
--- NOTE | 2023-08-14 16:53 | HP.PTEVAL ---
Patient's Visit Information Visit Information Visit Information: CAROL ZARAGOZA is a 73 year old F referred to Physical Therapy by Dr. Daniel Lee MD with a diagnosis of R shoulder greater tuberosity fracture. Date of Evaluation: 08/14/23 Physical Therapist: Doni Flores, DPT, OCS, CSCS Visit Plan Frequency: 2x /Week Duration: 4-6 Weeks Plan: 2x/week for 3-6 weeks for 1. AAROM, PROM R shoulder without increasing pain 2. ice activitiy modifcaiton to avoid pain AAROM ex progression to tolerance. IE: scap cirlces , pendulum, supine stickj flexiona dn er 2x/day and activitiy modficiation. Subjective Subjective: Fell on garage floor as she is not real steady. Had laminectomy on back. Uses cane in L UE. Land on r shoulder and fractured . That was 2 weeks ago 07/28/23. went to ER and they gav epain meds and x rays. Found fracture. No sling or other treatment and told to be careful and use ice. It is very painful. Has sling and ice and that helps it feel better. Not in sling currently as she forgot. No regular exercises. back limits her . Not employed . Sleep is off and on whcih is normal for her. Sleeps on L side on back on couch. Spends day bummin around house and gardening, cannot garden due to her arm pain, Has laptop that she communicates with,. Can watch news comfortably. Pain R shoulder: Pain Intensity (Out of 10): 0 Pain Intensity Range: 0 and 9 Objective Objective: Walks hunched over with cane in L UE mod I. [facility] adn chair I. L UE AROM WFL cervical aROM WFL R shoulder AROM 10 flexion limited by paiun. 40 er with pain, PSIS IR with pain elbow and wrist AROM WFL B. scap AROM is limited in depression and retraction in R but no painful. Spine is flexed forward structurally with scoliosis. strength R shoulder flexion 3-, abd 3, er 3 with pain, IR 3+ with some pain. elbow R 3+ and painful, L 4- wrist 4 B. reflexes 2/3 B bi and tri. Sensation UE WNL to gross light otuch. Balance/Special Test Scores Quick DASH Score: 56.8175 Goals Goal 1:: 130 flexion R shoulder and hand behind head without pain >1/10 Goal Time Frame: 4-6 Weeks Goal 2:: Pt feel shoulder pain 1/10 at worst adn 80% better Goal Time Frame: 4-6 Weeks Goal 3:: sleep without waking due to shoulder pain Goal Time Frame: 4-6 Weeks Goal 4:: quickdash score 16 or less Goal Time Frame: 4-6 Weeks Rehabilitation Potential Physical Therapy Diagnosis: R shoulder pain limiting ROM and functional movement. Rehabilitation Potential: Questionable Anticipated Interventions Patient/Client Instruction: Educate patient on: Condition, Plan of Care and Risk Factors For the Purpose of:: To decrease pain, To decrease swelling/inflammation, To increase ROM and To improve nutrient delivery to tissue Therapeutic Exercise to Include: Strength training, Passive ROM and Active ROM For the Purpose of:: To decrease pain, To increase ROM, To improve nutrient delivery to tissue, To improve ability to perform ADL's, To increase tolerance to activity/condition/position, To improve ability of physical actions for home/community/work/leisure and To improve gait and locomotor functions Manual Therapy Techniques to Include: Passive ROM and Soft tissue mobilization For the Purpose of:: To decrease pain, To increase ROM and To improve nutrient delivery to tissue Cryotherapy (ice pack, ice massage): Yes For the Purpose of:: To decrease pain and To decrease swelling/inflammation Text: Thank you for the opportunity to evaluate your patient. For Medicare and Medicare HMO plans, please review the plan of care and approve it. It will need to be FAXED BACK to us at [phone] for Medicare purposes. For Medicare only, by signing this I certify the plan of care. Please let me know if there are questions or concerns regarding this plan of care. Physician Signature: Date:
--- NOTE | 2023-09-13 16:52 | HP.PTREVAL ---
Re-Evaluation Intro: Dr. Daniel Lee MD, It has been my pleasure to treat CAROL ZARAGOZA over the last 7 visits for R shoulder greater tuberosity fracture. Please see the progress note below for an update on the physical therapy plan of care! Subjective Subjective: Script received for balance and ffrequent falls today. Already had shoulder treated today. Did not have cane last time she fell on R shoulder. Doesn't use it at home all the time but uses it away from home. Very sedentary and no active hobbies Objective Objective/Function: 19 FGA is low for age Posture is kyphotic and SB R due to scoliosis sturctural and abuable to stand up tall. Pelvis goes L Hip strength 3/5, knees 3+ and ankles 3+ AROM LE WFL reflexes 2/3 patella and achilles reciprocal toe and heel taps are fair Poor wweight shift with ambulation laterally and forward particularly on steps. Plan Plan Plan: continue 2x/week for both shoulder and balance...For shoulder please do 1. ROM exercises and manual ROM, isomteric strength. TENS if painful at rest only. FOR : Work on teaching weigth shifting and head movement exercises and LE strength all that can eventually be done at home with pics and list Pt will see pain management for back. New goals for balance and fair prognosis with compliance Balance/Gait/Functional tests Balance/Special Test Scores Functional Gait Assessment Score: 19 % Disability: 36.6700 CATSIB Score (Max score 120 seconds): 105 Quick DASH Score: 56.8175 Goals Goals Goal 1:: 130 flexion R shoulder and hand behind head without pain >1/10 Goal Time Frame: 4-6 Weeks Goal Progress: Progressing Goal 2:: Pt feel shoulder pain 1/10 at worst adn 80% better Goal Time Frame: 4-6 Weeks Goal Progress: slow Goal 3:: sleep without waking due to shoulder pain Goal Time Frame: 4-6 Weeks Goal Progress: Not Progressing Goal 4:: quickdash score 16 or less Goal Time Frame: 4-6 Weeks Goal 5:: FGA Goal Time Frame: 4-6 Weeks Goal Progress: NEW Goal 6:: I use of cane 100% of time for safety and I HEP for home based balance, head movement and LE strength exercises. Goal Time Frame: 4-6 Weeks Anticipated Interventions Anticipated Interventions Patient/Client Instruction: Educate patient on: Condition, Plan of Care and Risk Factors For the Purpose of:: To decrease pain, To decrease swelling/inflammation, To increase ROM and To improve nutrient delivery to tissue Therapeutic Exercise to Include: Strength training, Passive ROM and Active ROM For the Purpose of:: To decrease pain, To increase ROM, To improve nutrient delivery to tissue, To improve ability to perform ADL's, To increase tolerance to activity/condition/position, To improve ability of physical actions for home/community/work/leisure and To improve gait and locomotor functions Manual Therapy Techniques to Include: Passive ROM and Soft tissue mobilization For the Purpose of:: To decrease pain, To increase ROM and To improve nutrient delivery to tissue Cryotherapy (ice pack, ice massage): Yes For the Purpose of:: To decrease pain and To decrease swelling/inflammation Re-Evaluation Ending Re-evaluation ending: Please do not hesitate to contact me at [phone] by phone or if you have questions or concerns regarding this new plan of care! Sincerely, Doni Flores, DPT, OCS, CSCS
--- NOTE | 2023-09-27 15:54 | HP.PTREVAL ---
Re-Evaluation Intro: Dr. Daniel Lee MD, It has been my pleasure to treat CAROL ZARAGOZA over the last 11 visits for R shoulder greater tuberosity fracture. Please see the progress note below for an update on the physical therapy plan of care! Subjective Subjective: 7/10 with arm movements and is no better than day one with this pain. is painfree at rest. Toelrating ex well but not improving.Got an appointment with Dr. Lee on Sunday next week. Fell 3x today and does not know why. has a wh walker at home but not using. Objective Objective/Function: AROM R shoulder 65 degrees and not improving, painful to lift and painful arc. PROM to 140 and can hold it but lowering it down is miserably painful. Ext rotation strength poor and painful. IR 4-. Dysfinctional shoulder aROM R and patient very much focussed on pain despite ebing comfortable at rest. may have some demntia or memory loss as she keeps asking multiple times what Dr. Lee is going to do. Unable to stand up tall without support for longer than 30 seconds before her spine flexes FW nearly 75 degrees. Pt states she fell 3x today without reason so recommended 100% compliance with wh walker. Will continue to work on her balance from Dr. Luis but wait to see Jesus's recommendation/options on R shoulder which is not improving significantly. Plan Plan Plan: continue shoulder and balance exercises unless other plan from Dr. Lee for shoulder. Balance/Gait/Functional tests Balance/Special Test Scores Functional Gait Assessment Score: 19 % Disability: 36.6700 CATSIB Score (Max score 120 seconds): 105 Quick DASH Score: 56.8175 Goals Goals Goal 1:: 130 flexion R shoulder and hand behind head without pain >1/10 Goal Time Frame: 4-6 Weeks Goal Progress: Progressing Goal 2:: Pt feel shoulder pain 1/10 at worst adn 80% better Goal Time Frame: 4-6 Weeks Goal Progress: slow Goal 3:: sleep without waking due to shoulder pain Goal Time Frame: 4-6 Weeks Goal Progress: Not Progressing Goal 4:: quickdash score 16 or less Goal Time Frame: 4-6 Weeks Goal 5:: FGA Goal Time Frame: 4-6 Weeks Goal Progress: NEW Goal 6:: I use of cane 100% of time for safety and I HEP for home based balance, head movement and LE strength exercises. Goal Time Frame: 4-6 Weeks Anticipated Interventions Anticipated Interventions Patient/Client Instruction: Educate patient on: Condition, Plan of Care and Risk Factors For the Purpose of:: To decrease pain, To decrease swelling/inflammation, To increase ROM and To improve nutrient delivery to tissue Therapeutic Exercise to Include: Strength training, Passive ROM and Active ROM For the Purpose of:: To decrease pain, To increase ROM, To improve nutrient delivery to tissue, To improve ability to perform ADL's, To increase tolerance to activity/condition/position, To improve ability of physical actions for home/community/work/leisure and To improve gait and locomotor functions Manual Therapy Techniques to Include: Passive ROM and Soft tissue mobilization For the Purpose of:: To decrease pain, To increase ROM and To improve nutrient delivery to tissue Cryotherapy (ice pack, ice massage): Yes For the Purpose of:: To decrease pain and To decrease swelling/inflammation Re-Evaluation Ending Re-evaluation ending: Please do not hesitate to contact me at [phone] by phone or if you have questions or concerns regarding this new plan of care! Sincerely, Doni Flores, DPT, OCS, CSCS
--- NOTE | 2023-11-02 10:55 | HP.PTREVAL ---
Re-Evaluation Intro: Dr. Daniel Lee MD, It has been my pleasure to treat CAROL ZARAGOZA over the last 12 visits for R shoulder greater tuberosity fracture. Please see the progress note below for an update on the physical therapy plan of care! Subjective Subjective: Saw dr. Lee for shoulder adn recommended surgery or tylenol. Pt does not want surgery unles sit gets worse. Still on Eliquis and was taking alleve. Will get tylenol on way home. Shoulder is not changing. Pain 7/10 with movement or use but comfortable at rest. Shoulder still keeps her up at night, doc gave a sleep medicine. No shoulder exercises at home. Overall shoulder 50% better then starting PT. Balance is not great , falls with walking sometimes. Last fall was 5 days ago losing balance walking into kitchen and not suing cane. Uses walker at times at home but was not at that time. Objective Objective/Function: Shoulder R AROM 80 and painful arc but PROM to 155, can hold it there and lower slowly but painful arc. ER is 35 and strength 3- flexion 3 er, 3+ IR, Has full IR R shoulder.\ Pt is hunched over with gait but that is normal for her scoliosis. She stumbles once with cane today catching L foot but self recover, slow and labored with cane, not safe with cane, much safer and faster and more comfortable with wh walker. New goals: 1. I appropr home balance and shoulder program to minimize future problems 2. Compliant with 100% use wh walker to reduce fall risk Fair prognsosi for these goals with compliance. Plan Plan Plan: 2x/week new POC for shoulder ROM exercises on wall and band strength to HEP sitting with pics. Not a good prognosis for pain or funciton but needs to ex at home to limit digression. Also please teach weeight shift balance ex adn pregait balance and get to I home program with pics, Encourage 100% use of wh walker. Fair prognosis for I with exercises. Balance/Gait/Functional tests Balance/Special Test Scores Functional Gait Assessment Score: 19 % Disability: 36.6700 CATSIB Score (Max score 120 seconds): 105 Quick DASH Score: 56.8175 Goals Goals Goal 1:: 130 flexion R shoulder and hand behind head without pain >1/10 Goal Time Frame: 4-6 Weeks Goal Progress: Not Progressing Goal 2:: Pt feel shoulder pain 1/10 at worst adn 80% better Goal Time Frame: 4-6 Weeks Goal Progress: Not Progressing Goal 3:: sleep without waking due to shoulder pain Goal Time Frame: 4-6 Weeks Goal Progress: Not Progressing Goal 4:: quickdash score 16 or less Goal Time Frame: 4-6 Weeks Goal Progress: Not Progressing Goal 5:: FGA Goal Time Frame: 4-6 Weeks Goal Progress: Not Progressing Goal 6:: I use of cane 100% of time for safety and I HEP for home based balance, head movement and LE strength exercises. Goal Time Frame: 4-6 Weeks Goal Progress: Not Progressing Anticipated Interventions Anticipated Interventions Patient/Client Instruction: Educate patient on: Condition, Plan of Care and Risk Factors For the Purpose of:: To decrease pain, To decrease swelling/inflammation, To increase ROM and To improve nutrient delivery to tissue Therapeutic Exercise to Include: Strength training, Passive ROM and Active ROM For the Purpose of:: To decrease pain, To increase ROM, To improve nutrient delivery to tissue, To improve ability to perform ADL's, To increase tolerance to activity/condition/position, To improve ability of physical actions for home/community/work/leisure and To improve gait and locomotor functions Manual Therapy Techniques to Include: Passive ROM and Soft tissue mobilization For the Purpose of:: To decrease pain, To increase ROM and To improve nutrient delivery to tissue Cryotherapy (ice pack, ice massage): Yes For the Purpose of:: To decrease pain and To decrease swelling/inflammation Re-Evaluation Ending Re-evaluation ending: Please do not hesitate to contact me at [phone] by phone or if you have questions or concerns regarding this new plan of care! Sincerely, Doni Flores, DPT, OCS, CSCS
--- NOTE | 2023-11-28 11:18 | HP.PTDCSUM ---
Discharge Summary D/C summary: It has been my pleasure to treat CAROL ZARAGOZA referred by Dr. Daniel Lee MD, with the diagnosis of R shoulder greater tuberosity fracture for a total of 19 visit(s). Discharge Date: Please see the following information for a summary of their discharge status. Subjective Subjective: Not good. Pain in shoulder persists with movement. it cracks and hurts to reach out . 9/10 with reaching transiently and has to use other arm to hold it out. Doing band exercises with YTB at home 3x10 daily. Doing Leg strength daily, balance is awful but still using cane out and about, Fearful of falling but only uses walker at home on maain floor despite my warning. Doctor said live with it, meds or surgery. Pain R shoulder: Pain Intensity (Out of 10): 0 Back: Pain Intensity (Out of 10): 8 Overall Improvement % Improvement: 0 Objective Objective/Function: 130 AROM SLA felxion, painful arc at 90 and LLA flexion not past 85. er is 40 on R and IR is painful butto L5. Balance seems better and more confident today but still recommend continuing exerciseds at home and 100% complainc with wh walker(using cane into PT today) Goals Goal 1:: 130 flexion R shoulder and hand behind head without pain >1/10 Goal Progress: Goal Met SLA Goal 2:: Pt feel shoulder pain 1/10 at worst adn 80% better Goal Progress: Not Progressing Goal 3:: sleep without waking due to shoulder pain Goal Progress: Not Progressing Goal 4:: quickdash score 16 or less Goal Progress: Not Progressing Goal 5:: FGA Goal Progress: Not Progressing Goal 6:: I use of cane 100% of time for safety and I HEP for home based balance, head movement and LE strength exercises. Goal Progress: ex met. Plan Plan: d/c to HEP balance and shoulder strength D/C Information d/c sentence: If there are questions or concerns regarding this patient's physical therapy, please feel free to call me at [phone]. Thank you for the referral of this patient. Sincerely, Doni Flores, DPT, OCS, CSCS Balance/Gait/Functional tests Balance/Special Test Scores Functional Gait Assessment Score: 19 % Disability: 36.6700 CATSIB Score (Max score 120 seconds): 105 Quick DASH Score: 47.7250 Improvement % Improvement: 0
== END 2023-11-28 19:00 | disposition home or self-care (01) ==
LOC: PT 11:00
PROVIDERS: PCP Family Medicine Geriatric Medicine; Referring Provider Orthopaedic Surgery Sports Medicine; Visit Provider Orthopaedic Surgery Sports Medicine
DX: S42.251D Displaced fracture of greater tuberosity of right humerus, subsequent encounter for fracture with routine healing (principal); Z91.81 History of falling
CPT/HCPCS: 97110; 97140; 97161; 97164; 97530

== ENCOUNTER → 2023-12-12 | Outpatient (CLI) | payer MEDICARE, SELFPAY ==
[2023-12-12 17:34] LABS: Amphetamine Urine VISTA NEGATIVE (<1000 ng/mL); Barbiturate Urine VISTA NEGATIVE (< 200 ng/mL); Benzodiazepine Urine VISTA POSITIVE (< 200 ng/mL); Cocaine Urine VISTA NEGATIVE (< 300 ng/mL); Ecstacy Urine VISTA NEGATIVE (< 500 ng/mL); Methadone Urine VISTA NEGATIVE (< 300 ng/mL); PCP Urine VISTA NEGATIVE (< 25 ng/mL); THC Urine VISTA NEGATIVE (< 50 ng/mL); Vista UDS pH Range 6
== END | disposition home or self-care (01) ==
PROVIDERS: PCP Family Medicine Geriatric Medicine; Referring Provider Anesthesiology; Visit Provider Anesthesiology
DX: F11.20 Opioid dependence, uncomplicated (principal)
CPT/HCPCS: 80307

== ENCOUNTER 2024-01-03 13:18 | Inpatient (IN) | payer MEDICARE, SELFPAY ==
[2024-01-03] VITALS (10 sets, daily range): BP systolic 95–125; BP diastolic 52–67; PULSE 76–104; RESP 18–24; TEMP 36.8–37.8; O2SAT 93–95; BMI 23.0; BMI 21.0
--- NOTE | 2024-01-03 13:54 | RAD_ITS ---
HISTORY: weakness, cough. TECHNIQUE: XR Chest 1 View. COMPARISON: 07/30/2023. FINDINGS: CARDIOMEDIASTINAL BORDERS: Cardiac silhouette within normal limits in size. Mediastinal contour also unchanged with calcification of the aortic knob. LUNGS: Patchy bibasilar opacities, mildly decreased. PLEURA: No pleural effusion or pneumothorax seen. 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 Thoracic spinal electrode noted. RAD/Chest 1 View (Portable) IMPRESSION: Bibasilar opacities, concerning for pneumonia. Electronically Signed: Jael Rosas MD at 15:33 EDT ,
--- NOTE | 2024-01-03 13:54 | EKG12_ITS ---
Test Reason : ALT LOC Blood Pressure : / mmHG Vent. Rate : 097 BPM Atrial Rate : 097 BPM P-R Int : 142 ms QRS Dur : 076 ms QT Int : 364 ms P-R-T Axes : 060 -05 062 degrees QTc Int : 462 ms Normal sinus rhythm Indeterminate axis ST & T wave abnormality, consider anterior ischemia Abnormal ECG Confirmed by Mil Snyder ([id number]), sports editor GEGE COSTELLO ([id number]) on 01/04/2024 1:37:03 PM Referred By: Xu Macias Confirmed By:Mil Snyder
--- NOTE | 2024-01-03 13:54 | CT_ITS ---
HISTORY: altered MS, headache. TECHNIQUE: Multiple axial images were obtained of the head without intravenous contrast. A radiation dose optimization technique was used for this scan. 231 images. COMPARISON: None. FINDINGS: BRAIN PARENCHYMA: Mild chronic small vessel ischemic gliosis. No acute intra-axial hemorrhage. CSF SPACES: Mild generalized volume loss. No midline shift or other significant mass effect. No acute extra-axial hemorrhage. OTHER: Intact calvarium. No significant air fluid levels in the paranasal sinuses or mastoid air cells. Unremarkable orbits. CT/Brain/Head without Contrast IMPRESSION: No acute intracranial process identified. Mild chronic involutional and white matter changes. Electronically Signed: Jael Rosas MD at 15:38 EDT ,
--- NOTE | 2024-01-03 13:56 | EX.ED.DYSGE1 ---
HPI History of Present Illness Chief Complaint: Alt LOC Informant: patient, spouse/S.O. and EMS Narrative Narrative: 73-year-old female awoke this morning at about 3 AM and was acting funny according to the . She had cold chills at that time, he thinks she woke up to use the bathroom, she was talking about being at the hospital but do not call the doctor and was talking out of her head although she was in her bedroom. Today she is continued to be confused and generally weak. The dog was barking and he came into the kitchen as a result and found her on the floor. Unsure if she fell or not. She denies falling. She was talking about being down there trying to operate the stove in order to make Thanksgiving pumpkin pies, which clearly is not the case since it is not November yet and states this is very unlike her and confused for her. She was fine when she went to bed yesterday, however she had been coughing yesterday off-and-on, and has a history of aspiration pneumonia. She had no vomiting yesterday and he denies the coughing necessarily being associated with meals. She fell and hit her head about a month ago and still has some bruising there, she had a laceration that did not require stitches and that is healed well. She complains of a headache today. She denies any new pains and denies falling. She does have pain in her right shoulder from her fracture from a couple months ago. [facility] Medical History Hypoxia Fracture of humeral head [place] Pulmonary emboli Hypoxia Aspiration pneumonia Closed head injury Anxiety and depression Cervical stenosis of spine Vitamin D deficiency Irritable bowel syndrome without diarrhea Stenosis, cervical spine Chronic cough Allergic rhinitis Insomnia HLD (hyperlipidemia) Movement disorder Gastroparesis Dysphagia Pain from implanted hardware Wears hearing aid Wears dentures Wears glasses Post-menopausal Uses wheelchair Walker as ambulation aid Ambulates with cane Arthritis High cholesterol Back pain Migraine headache Gastric reflux Former smoker Shortness of breath on exertion History of stress test Hypertension COVID-19 Scoliosis of lumbar spine Segmental and somatic dysfunction of pelvic region Segmental dysfunction of thoracic region Segmental and somatic dysfunction of lumbar region Carpal tunnel syndrome on both sides Chronic lower back pain Home Medications ?Medication ?Instructions ?Recorded ?Last Taken ?Type buspirone 7.5 mg tablet 7.5 mg PO BID ANXIETY 02/17/20 04/26/22 History clonazepam 1 mg tablet 1 mg PO TID ANXIETY 02/17/20 04/26/22 History doxepin 150 mg capsule 150 mg PO QHS ANXIETY 07/30/23 Unknown History metoprolol succinate 25 mg 25 mg PO DAILY BLOOD PRESSURE 07/30/23 Unknown History tablet,extended release 24 hr omeprazole 20 mg capsule,delayed 20 mg PO DAILY GERD 07/30/23 Unknown History release apixaban 5 mg tablet (Eliquis) 5 mg PO BID blood thinner 01/03/24 Unknown History Allergy/AdvReac Type Severity Reaction Status Date / Time Penicillins Allergy Rash Verified 01/03/24 13:19 Family History Mother Hypertension CVA (cerebral vascular accident) Heart disease Cerebral hemorrhage Father Cancer Hx stomach cancer and leukemia. Surgical History History of cardiac catheterization Hx of dilation and curettage History of 2 sections Hx of surgical procedure History of lumbar laminectomy Social History household members: spouse housing: house number of children: 2 Smoking Status: Former smoker alcohol intake: never substance use type: does not use what type of physical activity do you participate in: none additional social history: Currently ambulating with a cane [facility] ED Constitutional Constitutional ED: Reports chills and weakness Eyes Eyes: Denies change in vision or diplopia ENT ENT ED: Denies rhinorrhea or sore throat Cardiovascular Cardiovascular: Denies chest pain or palpitations Respiratory/Chest Respiratory/Chest: Reports cough; Denies dyspnea or sputum Gastrointestinal Gastrointestinal: Denies abdominal pain, diarrhea, nausea or vomiting Genitourinary Genitourinary ED: Denies dysuria or hematuria Musculoskeletal Musculoskeletal: Denies myalgias or neck pain Integumentary Denies abscess or rash Neurologic Neurologic: Reports as per HPI, behavior changes and confusion; Denies abnormal speech, headache(s), paresthesias or weakness EXAM Physical Exam Const Vital Signs: 01/03/24 13:19 01/03/24 14:21 01/03/24 15:00 Temperature 100.0 F H 100 F H 99.5 F H Temperature Source Oral Oral Core Pulse Rate 104 H 95 88 Respiratory Rate 22 H 18 18 Blood Pressure 125/67 H 105/61 95/53 L Blood Pressure Mean 86 75 67 Pulse Ox 93 95 95 Oxygen Delivery Method Room Air Room Air 01/03/24 16:00 Temperature 99.7 F H Temperature Source Core Pulse Rate 78 Respiratory Rate 20 H Blood Pressure 100/61 Blood Pressure Mean 74 Pulse Ox 95 Oxygen Delivery Method Room Air Positive well nourished and well developed General Appearance ED: well developed and NAD HEENT Reports moist mucous membranes normocephalic and atraumatic Eyes PERRL and EOMs intact bilaterally Neck full ROM and supple Chest Wall inspection of chest normal and palpation of chest normal Resp normal respiratory effort and clear to auscultation bilaterally Cardio regular rate and regular rhythm Cardio Narrative: Possibly 1/6 systolic soft murmur right second intercostal space Peripheral Pulses: pulses 2+ throughout GI non-tender and non-distended Auscultation: normoactive bowel sounds Palpation: soft Back/Spine no CVA tenderness General Back: other FROM Extremity normal to inspection Extremity Narrative: Limited range of motion right shoulder due to pain, no acute tenderness or deformity General Extremety ED: Negative for edema, pulses abnormal or tenderness General Extremity: Negative for edema or pulses abnormal Neuro oriented x3, CN's II-XII intact bilaterally and no sensory deficits noted Neuro Narrative: Oriented x 3 at this time Sensorium / Orientation: awake and alert Motor Exam: general weakness Psych mental status grossly normal Skin no rashes or lesions noted and no wounds MDM MDM MDM Narrative Medical decision making narrative: Septic workup obtained, suspicious for infection given her low-grade fever which was treated with Tylenol. Also did a CT of the head given her mental status change, I reviewed the images and report which I agree with it is negative for any acute, making her mental status change more likely metabolic due to her infection. She is white blood count of 17, COVID/influenza swab that is negative, her urine shows suspicion for infection and is cloudy. Cardiac workup unremarkable. Chest x-ray 1 view on my interpretation shows atelectasis in the bases, no overt consolidation. Radiology commenting that this could mean pneumonia. She is not coughing very much, she has had a minor cough, she has had no dyspnea, I think more likely to direct the antibiotics toward urinary infection in his case specially with her nocturia. Plan is for admission given the circumstances. Given her vital signs stable, pulse improved after treating her fever, lack of hypoxemia, and lack of a lactic acidosis or DEE, no acute/emergent IV fluid bolus indicated, and given the shortage of IV fluids nationally, those are being held at this time. Lab Data Attestation: I reviewed the patient's lab results. Labs: Laboratory Results - last 24 hr 01/03/24 01/03/24 13:20 14:23 WBC 17.3 H RBC 3.61 L Hgb 11.0 L Hct 34.6 L MCV 95.8 MCH 30.5 MCHC 31.8 L RDW Std Deviation 50.7 H RDW Coeff of Mehnaz 14.6 Plt Count 321 MPV 9.9 Immature Gran % (Auto) 0.500 Neut % (Auto) 90.7 H Lymph % (Auto) 4.3 L [place] % (Auto) 4.2 Eos % (Auto) 0.1 Baso % (Auto) 0.2 Absolute Neuts (auto) 15.7 H Absolute Lymphs (auto) 0.75 L Nucleated RBC % 0 Sodium 138 Potassium 3.4 L Chloride 109 H Carbon Dioxide 24.0 Anion Gap 5 BUN 8 Creatinine 0.96 Estim Creat Clear Calc 39.38 Est GFR (MDRD) Af Amer 73 Est GFR (MDRD) Non-Af 60 BUN/Creatinine Ratio 8.3 L Glucose 114 H Lactic Acid 1.0 Calcium 8.5 Magnesium 1.9 Troponin I High Sens 3 Urine Color Yellow Urine Clarity Cloudy Urine pH 7.0 Ur Specific [place] 1.010 Urine Protein 15 H Urine Glucose (UA) Normal Urine Ketones Negative Urine Occult Blood 25 H Urine Nitrite Negative Urine Bilirubin Negative Urine Urobilinogen Normal Ur Leukocyte Esterase 500 H Urine RBC 0-5 SEEN Urine WBC 25-50 SEEN Ur Squamous Epith Cells 0 SEEN Ur Renal Epithelial Cell 0-5 SEEN Urine Bacteria 4+ Urine Mucus 0 SEEN Urine Yeast 1+ Radiography Diagnostic Testing: Clinical Impression(s) from Imaging Studies Brain CT 01/03/24 13:54 IMPRESSION: No acute intracranial process identified. Mild chronic involutional and white matter changes. Electronically Signed: Jael Rosas MD at 15:38 EDT , Chest X-Ray 01/03/24 13:54 IMPRESSION: Bibasilar opacities, concerning for pneumonia. Electronically Signed: Jael Rosas MD at 15:33 EDT Reading Location ID and State: [facility] / [place] Tel , Service support , Rhythm Strip Rhythm Strip: Sinus Tach Rate: 105 Ectopy: None EKG Initial EKG: Attestation: I personally reviewed and interpreted this EKG as follows: Interpretation: Sinus Rhythm and No Acute Injury Pattern Management Discussion w/another healthcare provider: Hospitalist Discharge Plan Dx/Rx/DC Orders Clinical Impression: Acute encephalopathy, Acute UTI Disposition Disposition: Acute Care Hospital [facility] Discharge Date/Time: 01/03/24 17:20
[2024-01-03 14:15] LABS: Absolute Lymphocyte Count 0.75 X10^3/uL (0.83-4.51); Absolute Neutrophil Count 15.7 X10^3/uL (2.0-7.7); Basophil# 0.04 X10^3/uL; Basophil% 0.2 % (0-1); Eosinophil# 0.01 X10^3/uL; Eosinophils% 0.1 % (0-5); Hematocrit 34.6 % (37-47); Lymphocyte # 0.75 X10^3/ul (0.83-4.51); Lymphocyte % 4.3 % (19-41); Mean Corp Hgb Conc 31.8 g/dL (32-36); Mean Corpuscular Hgb 30.5 pg (27.0-32.0); Mean Corpuscular Volume 95.8 fL (81-99); Mean Platelet Vol. 9.9 fl (6.2-12.0); Monocyte# 0.73 X10^3/uL; Monocyte% 4.2 % (0-10); NRBC Flagged by Analyzer 0 % (0-5); Neutrophil % 90.7 % (47-70); Platelet Count 321 K/mm3 (150-450); RBC Distribution Width CV 14.6 % (11.6-14.6); RBC Distribution Width SD 50.7 fl (35.1-43.9); Red Blood Count 3.61 M/mm3 (4.2-5.4); White Blood Count 17.3 K/mm3 (4.4-11.0)
[2024-01-03] MEDS: Acetaminophen 500 MG Tablet 1000 MG PO (14:22)
[2024-01-03 14:31] LABS: Mucous, Urine 0 SEEN /hpf (<or=2+); Squamous Epithelial Cells - UA 0 SEEN /hpf (5-10)
[2024-01-03 14:36] LABS: Color, Urine Yellow (Yellow); Glucose, Dipstick Normal (Normal); Ketone-Dipstick Negative (Negative); Leukocyte Esterase-Dipstick 500 /ul (Negative); Nitrite-Dipstick Negative (Negative); Occult Blood-Urine 25 /ul (Negative); Protein-Dipstick 15 mg/dl (Negative); Urine Bilirubin Dipstick Negative (Negative); Urine Clarity Cloudy (Clear); Urine Urobilinogen Normal (Normal)
[2024-01-03 14:38] LABS: Anion Gap 5 (5-15); BUN 8 mg/dL (7-18); BUN/Creat Ratio 8.3 RATIO (10-20); Calcium,Total 8.5 mg/dL (8.5-10.1); Chloride 109 mmol/L (98-107); Creatinine, Serum 0.96 mg/dL (0.55-1.02); EST Glomerular Filtration Rate 60 mL/min (>60); Est Glom Filt Rate - Afr Amer 73 mL/min (>60); Estimated Creatinine Clearance 39.38 ml/min; Glucose 114 mg/dL (74-106); Potassium 3.4 mmol/L (3.5-5.1); Sodium Level 138 mmol/L (136-145); Troponin-I HS 3 pg/mL (3.0-54.0)
[2024-01-03 14:46] LABS: Bacteria 4+ /hpf (None Seen)
[2024-01-03 14:47] LABS: White Blood Cells 25-50 SEEN /hpf (0-5); Yeast-Urine 1+ /hpf (None Seen)
[2024-01-03 14:48] LABS: Red Blood Cells-Urine 0-5 SEEN /hpf (0-5); Renal Epithelial Cells 0-5 SEEN /hpf (0-5)
--- NOTE | 2024-01-03 16:58 | HP.PCM.HOS_ITS ---
HPI - General General Date of Admission: 01/03/24 Date of Service: 01/03/24 Chief Complaint: Acute onset of confusion. Chronic cough, history of aspiration pneumonia HPI Narrative CAROL ZARAGOZA, is a 73 F was brought by EMS for acute onset of confusion. The history was mainly taken from the patient's in the ED but the patient also contributed. As per , she woke up very confused, change in dress and was thinking that she has to wake Thanksgiving PIE. She also thought that she is in the hospital. She was disoriented. Patient was not agitated. As per the she also had chills and shivering yesterday. She has chronic cough and had aspiration pneumonia 3-4 times because of oropharyngeal dysphagia. She was told to follow-up with [facility]. Her denies prior history of stroke. She had similar episodes of confusion in the past. She denies burning micturition or change in the color. When I saw the patient, she was coughing up after drinking Coke. In ED, low-grade fever temperature 100 Fahrenheit and tachypnea but no tachycardia or hypoxia. [facility] Medical History Hypoxia Fracture of humeral head [place] Pulmonary emboli Hypoxia Aspiration pneumonia Closed head injury Anxiety and depression Cervical stenosis of spine Vitamin D deficiency Irritable bowel syndrome without diarrhea Stenosis, cervical spine Chronic cough Allergic rhinitis Insomnia HLD (hyperlipidemia) Movement disorder Gastroparesis Dysphagia Pain from implanted hardware Wears hearing aid Wears dentures Wears glasses Post-menopausal Uses wheelchair Walker as ambulation aid Ambulates with cane Arthritis High cholesterol Back pain Migraine headache Gastric reflux Former smoker Shortness of breath on exertion History of stress test Hypertension COVID-19 Scoliosis of lumbar spine Segmental and somatic dysfunction of pelvic region Segmental dysfunction of thoracic region Segmental and somatic dysfunction of lumbar region Carpal tunnel syndrome on both sides Chronic lower back pain Home Medications ?Medication ?Instructions ?Recorded ?Last Taken ?Type buspirone 7.5 mg tablet 7.5 mg PO BID ANXIETY 02/17/20 04/26/22 History clonazepam 1 mg tablet 1 mg PO TID ANXIETY 02/17/20 04/26/22 History doxepin 150 mg capsule 150 mg PO QHS ANXIETY 07/30/23 Unknown History metoprolol succinate 25 mg 25 mg PO DAILY BLOOD PRESSURE 05/13/24 Unknown History tablet,extended release 24 hr omeprazole 20 mg capsule,delayed 20 mg PO DAILY GERD 07/30/23 Unknown History release apixaban 5 mg tablet (Eliquis) 5 mg PO BID blood thinner 01/03/24 Unknown History Allergy/AdvReac Type Severity Reaction Status Date / Time Penicillins Allergy Rash Verified 01/03/24 13:19 Family History Mother Hypertension CVA (cerebral vascular accident) Heart disease Cerebral hemorrhage Father Cancer Hx stomach cancer and leukemia. Surgical History History of cardiac catheterization Hx of dilation and curettage History of 2 sections Hx of surgical procedure History of lumbar laminectomy Social History household members: spouse housing: house number of children: 2 Smoking Status: Former smoker alcohol intake: never substance use type: does not use what type of physical activity do you participate in: none additional social history: Currently ambulating with a cane ROS ROS Narrative Although patient is mildly confused but she can give answer to simple questions of ROS Constitutional: Reports fatigue and weakness. Chills and shivering. HEENT: Reports systems reviewed and no addt'l complaints, except as documented Respiratory/Chest: Chronic cough. No acute shortness of breath or respiratory distress or wheezing. CVS: No chest pain or tightness. Denies [place] Gastrointestinal: History of aspiration. Dysphagia. Denies coffee ground emesis, hematemesis or vomiting Genitourinary: Denies burning urination or new urinary tract symptoms Musculoskeletal: Denies acute joint pain or limited range of motion. No acute injury Neurologic: Denies seizure-like symptoms. History of chronic migraine headache, close head injury and movement disorder skin: No ulcer. No rash Endocrinology: Reports systems reviewed and no addt'l complaints, except as documented Hematologic/Lymphatic: Reports systems reviewed and no addt'l complaints, except as documented Rest 14 ROS are negative except as mentioned in HPI Vital Signs Vital Signs Vital Signs: 01/03/24 13:19 01/03/24 14:21 01/03/24 15:00 Temperature 100.0 F H 100 F H 99.5 F H Temperature Source Oral Oral Core Pulse Rate 104 H 95 88 Respiratory Rate 22 H 18 18 Blood Pressure 125/67 H 105/61 95/53 L Blood Pressure Mean 86 75 67 Pulse Ox 93 95 95 Oxygen Delivery Method Room Air Room Air 01/03/24 16:00 01/03/24 16:45 Temperature 99.7 F H 99.3 F H Temperature Source Core Pulse Rate 78 85 Respiratory Rate 20 H 24 H Blood Pressure 100/61 96/52 L Blood Pressure Mean 74 66 Pulse Ox 95 94 Oxygen Delivery Method Room Air Weight Weight: 121 lb 11.123 oz Body Mass Index (BMI) 23.0 Physical Exam Narrative General: Awake, oriented x 3. Mild lethargy. HEENT: Atraumatic, PERRLA, EOMI, Normocephalic Oral: Oral mucosa dry no Gingival or Mucosal Lesions/ Ulcerations Neck: Supple, No JVD, Negative Carotid Bruits Chest wall/Lungs: Air entry diminished in bilateral lung bases. Mild coarse crepitation right lung base with Cardiovascular: Regular rate, Regular Rhythm, Normal S1, Normal S2, systolic murmur LLSB Abdomen: Bowel Sounds Present, Soft, Non Tender, Non-Distended : No dysuria. No renal angle tenderness. No suprapubic tenderness. Extremities: No edema, Capillary Refill Less than 3 Seconds Skin: No rashes, No breakdown Musculoskeletal: No Tenderness to Palpation of Joints or Extremities Neurological: Cranial nerves II-XII grossly intact, DTR 2+/4. No acute focal neurological deficit. Psych/Mental Status: Flat affect. Mild confusion in ED Results Lab / Micro Data 01/03/24 13:20 01/03/24 13:20 Labs: Laboratory Results - last 24 hr 01/03/24 13:20: WBC 17.3 H, RBC 3.61 L, Hgb 11.0 L, Hct 34.6 L, MCV 95.8, MCH 30.5, MCHC 31.8 L, RDW Std Deviation 50.7 H, RDW Coeff of Mehnaz 14.6, Plt Count 321, MPV 9.9, Immature Gran % (Auto) 0.500, Neut % (Auto) 90.7 H, Lymph % (Auto) 4.3 L, [place] % (Auto) 4.2, Eos % (Auto) 0.1, Baso % (Auto) 0.2, Absolute Neuts (auto) 15.7 H, Absolute Lymphs (auto) 0.75 L, Nucleated RBC % 0, Sodium 138, P otassium 3.4 L, Chloride 109 H, Carbon Dioxide 24.0, Anion Gap 5, BUN 8, Creatinine 0.96, Estim Creat Clear Calc 39.38, Est GFR (MDRD) Af Amer 73, Est GFR (MDRD) Non-Af 60, BUN/Creatinine Ratio 8.3 L, Glucose 114 H, Lactic Acid 1.0, Calcium 8.5, Troponin I High Sens 3 01/03/24 14:23: Urine Color Yellow, Urine Clarity Cloudy, Urine pH 7.0, Ur Specific [place] 1.010, Urine Protein 15 H, Urine Glucose (UA) Normal, Urine Ketones Negative, Urine Occult Blood 25 H, Urine Nitrite Negative, Urine Bilirubin Negative, Urine Urobilinogen Normal, Ur Leukocyte Esterase 500 H, Urine RBC 0-5 SEEN, Urine WBC 25-50 SEEN, Ur Squamous Epith Cells 0 SEEN, Ur Renal Epithelial Cell 0-5 SEEN, Urine Bacteria 4+, Urine Mucus 0 SEEN, Urine Yeast 1+ Micro: Microbiology 01/03/24 13:20 Mucosa - Nose SARS-CoV-2, Influenza & RSV (PCR) - Final Rhythm Strip Rhythm Strip: Sinus Tach Rate: 105 Ectopy: None Imaging Radiology Impression Brain CT 01/03/24 13:54 IMPRESSION: No acute intracranial process identified. Mild chronic involutional and white matter changes. Electronically Signed: Jael Rosas MD at 15:38 EDT , Chest X-Ray 01/03/24 13:54 IMPRESSION: Bibasilar opacities, concerning for pneumonia. Electronically Signed: Jael Rosas MD at 15:33 EDT , Assessment & Plan Assessment/Plan (1) Acute encephalopathy: (2) Pneumonia: PLAN: Plan This 73-year-old female was brought to ED by EMS for acute onset of confusion. 1. Acute encephalopathy possible infectious/metabolic encephalopathy: Patient is being admitted in PCU. Started on IV antibiotic. IV fluid normal saline 1 L bolus patient looks dehydrated. Orientation cues. 2. Bilateral mild pneumonia with suspicion of aspiration pneumonia: Chest x-ray individually reviewed and shows bilateral lung bases infiltrate, worse on the right lung with consistent with pneumonia.Twelve-lead EKG shows NSR at 97 bpm, QTc 402 ms. Patient is started on IV Levaquin and Flagyl to cover GPC, GNR and anaerobes. Triple PCR for SARS-CoV-2, flu and RSV are negative. Respiratory panel, blood culture and sputum culture ordered. Lactic acid normal. 3. Abnormal UA most likely asymptomatic bacteriuria: LE 500 but nitrite negative. WBC 25-50 cells. Does not have acute close intact symptoms. Less likely UTI. Patient on antibiotic. Urine culture ordered. 3. Neuropsychological conditions including history of closed head injury, movement disorder, anxiety, and chronic migraine headache: Patient on buspirone and clonazepam. Ordered as needed. Hold doxepin 4. Chronic left-sided PE: Patient was admitted in July 2023 for community- acquired pneumonia, hypoxia and left-sided PE. Continue Eliquis. 5. GERD: On PPI continued 6. CKD stage IIIb: BUNs/creatinine 8/0.96. Estimated creatinine clearance 39 mL/min. Mild hypokalemia, potassium is getting replaced. Serum magnesium normal. DVT prophylaxis: Already on Eliquis as mentioned above Living will/advanced directive/end of life care: Patient does have living will or advanced directive. Her present in the ED is power of production broacher for health. After discussion of benefits/risks procedures involved with full code, DNR CC arrest and DNR CC, the patient stated that she is full code Patient does want artificial life support including intubation, tube feed, ventilator and/chest compression, central venous catheter, vasopressor and DC shock if needed Total time spent in [id number] encounter in discussion of advanced directive 17 minutes. Microbiology Past 72 Hours 01/03/24 13:20 Mucosa - Nose SARS-CoV-2, Influenza & RSV (PCR) - Final Laboratory Results 01/03/24 13:20: WBC 17.3 H, RBC 3.61 L, Hgb 11.0 L, Hct 34.6 L, MCV 95.8, MCH 30.5, MCHC 31.8 L, RDW Std Deviation 50.7 H, RDW Coeff of Mehnaz 14.6, Plt Count 321, MPV 9.9, Immature Gran % (Auto) 0.500, Neut % (Auto) 90.7 H, Lymph % (Auto) 4.3 L, [place] % (Auto) 4.2, Eos % (Auto) 0.1, Baso % (Auto) 0.2, Absolute Neuts (auto) 15.7 H, Absolute Lymphs (auto) 0.75 L, Nucleated RBC % 0, Sodium 138, Potassium 3.4 L, Chloride 109 H, Carbon Dioxide 24.0, Anion Gap 5, BUN 8, Creatinine 0.96, Estim Creat Clear Calc 39.38, Est GFR (MDRD) Af Amer 73, Est GFR (MDRD) Non-Af 60, BUN/Creatinine Ratio 8.3 L, Glucose 114 H, Lactic Acid 1.0, Calcium 8.5, Magnesium 1.9, Troponin I High Sens 3 01/03/24 14:23: Urine Color Yellow, Urine Clarity Cloudy, Urine pH 7.0, Ur Specific [place] 1.010, Urine Protein 15 H, Urine Glucose (UA) Normal, Urine Ketones Negative, Urine Occult Blood 25 H, Urine Nitrite Negative, Urine Bilirubin Negative, Urine Urobilinogen Normal, Ur Leukocyte Esterase 500 H, Urine RBC 0-5 SEEN, Urine WBC 25-50 SEEN, Ur Squamous Epith Cells 0 SEEN, Ur Renal Epithelial Cell 0-5 SEEN, Urine Bacteria 4+, Urine Mucus 0 SEEN, Urine Yeast 1+ Clinical Impression(s) from Imaging Studies Brain CT 01/03/24 13:54 IMPRESSION: No acute intracranial process identified. Mild chronic involutional and white matter changes. Chest X-Ray 01/03/24 13:54 IMPRESSION: Bibasilar opacities, concerning for pneumonia. Charges/Coding Visit Charges Inpatient E&M: 83548 Init Hosp L3 Procedures Hospitalists Procedures: 91144 Advncd Care Plan 30 Min
[2024-01-03] MEDS: Ceftriaxone 2 GM in 0.9% Normal Saline (50mL MB+) 50 ML IV (17:05)
[2024-01-03 17:19] LABS: Magnesium 1.9 mg/dL (1.6-2.6)
[2024-01-03] MEDS: 0.9% Normal Saline (1000mL) 1,000 ML 999 ML IV (18:04)
[2024-01-03] MEDS: levoFLOXacin IV 500 MG/100 ML BAG 100 MG IV (18:04)
[2024-01-03] MEDS: metroNIDAZOLE 500 MG/100 ML BAG 100 MG IV (18:11)
[2024-01-03] MEDS: 0.9% Saline Lock 10 ML Syringe IV (18:12)
[2024-01-03] MEDS: Potassium Chloride 10mEq/100mL 10 MEQ/100 ML IV.SOLN. 100 MEQ IV BOLUS ×2 (18:30→20:00)
[2024-01-03] MEDS: KCL 20MEQ in 0.9% NS 20 MEQ/1,000 ML IV.SOLN. 100 MEQ IV (19:00)
[2024-01-03] MEDS: APIXABAN 5 MG TABLET PO (21:14)
[2024-01-03] MEDS: guaiFENesin 1,200 MG Tablet 1200 MG PO (21:16)
[2024-01-03] MEDS: Senna/Docusate Sodium 1 Tablet 2 TABLET PO (21:16)
[2024-01-03] MEDS: Ensure Plus High Protein 120 ML LIQUID PO (21:16)
[2024-01-04 03:45] VITALS: BP 106/58; PULSE 73; RESP 18; TEMP 36.8; O2SAT 94
[2024-01-04] MEDS: metroNIDAZOLE 500 MG/100 ML BAG 100 MG IV ×2 (05:16→13:09)
[2024-01-04 06:05] LABS: Absolute Lymphocyte Count 1.68 X10^3/uL (0.83-4.51); Absolute Neutrophil Count 6.7 X10^3/uL (2.0-7.7); Basophil# 0.04 X10^3/uL; Basophil% 0.4 % (0-1); Eosinophil# 0.15 X10^3/uL; Eosinophils% 1.6 % (0-5); Hematocrit 31.2 % (37-47); Hemoglobin 9.9 g/dL (12.0-15.0); Lymphocyte # 1.68 X10^3/ul (0.83-4.51); Lymphocyte % 18.4 % (19-41); Mean Corp Hgb Conc 31.7 g/dL (32-36); Mean Corpuscular Hgb 30.9 pg (27.0-32.0); Mean Corpuscular Volume 97.5 fL (81-99); Mean Platelet Vol. 9.8 fl (6.2-12.0); Monocyte# 0.54 X10^3/uL; Monocyte% 5.9 % (0-10); NRBC Flagged by Analyzer 0 % (0-5); Neutrophil # 6.69 X10^3/uL (2.7-7.7); Neutrophil % 73.4 % (47-70); Platelet Count 314 K/mm3 (150-450); RBC Distribution Width SD 53.7 fl (35.1-43.9); White Blood Count 9.1 K/mm3 (4.4-11.0)
[2024-01-04 06:36] LABS: Anion Gap 3 (5-15); BUN 9 mg/dL (7-18); Calcium,Total 8.3 mg/dL (8.5-10.1); Chloride 118 mmol/L (98-107); Creatinine, Serum 0.75 mg/dL (0.55-1.02); EST Glomerular Filtration Rate 81 mL/min (>60); Est Glom Filt Rate - Afr Amer 98 mL/min (>60); Estimated Creatinine Clearance 49.53 ml/min; Glucose 83 mg/dL (74-106); Potassium 4.2 mmol/L (3.5-5.1); Sodium Level 144 mmol/L (136-145)
[2024-01-04] MEDS: DiphenhydrAMINE 50 MG/ML Syringe 25 MG IV (06:43)
[2024-01-04 09:00] VITALS: BP 110/58; PULSE 88; RESP 18; TEMP 36.4; O2SAT 94
[2024-01-04] MEDS: Ceftriaxone 1 GM/50 ML BAG IV (09:02)
[2024-01-04 09:05] VITALS: PULSE 88
[2024-01-04] MEDS: Metoprolol(XL)Succ 25 MG Tablet PO (09:05)
[2024-01-04] MEDS: APIXABAN 5 MG TABLET PO (09:06)
[2024-01-04] MEDS: Pantoprazole Sodium 20 MG Tablet PO (09:06)
[2024-01-04] MEDS: guaiFENesin 1,200 MG Tablet 1200 MG PO (09:06)
[2024-01-04] MEDS: Ensure Plus High Protein 120 ML LIQUID PO ×2 (09:12→13:09)
--- NOTE | 2024-01-04 09:17 | ST.MBS ---
Modified Barium Swallow Patient Information Study Date: 01/04/24 Study Time: 09:30 Direct Billable Minutes: 95 Total Minutes procedure & reportin Diagnosis: Acute UTI N39.0; Acute encephalopathy G93.40 Referring Physician: Rafita Siddiqui Reason for Referral: Objectively assess swallow function, assess risk for aspiration, and determine recommendations for least restrictive diet textures and compensatory strategies to improve safety of swallow. Medical History: Pt was brought to [facility] ED 01/03/2024 w/ acute onset of confusion w/ chronic cough. Pt has hx of aspiration PNA (3-4X) and chronic cough. Most recent MBSS was on 07/31/2023 had no findings of aspiration; however, it could not be ruled out due to patient's body habitus. It did reveal mod-severe oral dysphagia and moderate pharyngeal dysphagia and recommended puree textures / thin liquids w/ 1:1 supervision. Pt's reported to ED physician that patient woke up on day of admission w/ confusion, as well as chills and shivering the day before admission. Physician saw the patient coughing drinking coke during work up. Chest x-ray showed bibasilar opacities, concerning for pneumonia. Pt has been admitted to the floor for medical management and referred for ST consult due to concerns for aspiration. BSE recommended puree textures / thin liquids with direct supervision, meds crushed in , and plan for MBSS to further assess swallow function and aspiration risk. Other dysphagia hx: -EGD 11/03/22 - Tortuous esophagus. Abnormal esophageal motility, suspicious for presbyesophagus. Injected with botulinum toxin. Mild Schatzki ring. Dilated. Medium-sized hiatal hernia. Biopsies were taken with a cold forceps for evaluation of eosinophilic esophagitis. Recommended discharge patient to home. Resume previous diet. Continue present medications. -MBSS 11/02/22 ? Moderate-severe oropharyngeal dysphagia with silent aspiration of thin liquids with recommendation for NPO with consideration for FFWP and meds whole in puree. -EGD 08/02/22 - LA Grade A erosive esophagitis. Biopsied. Dilated. A large amount of food residue in the stomach. Recommended continue current medications, aspiration precautions, and gastric emptying study.MBSS 08/01/22 - Moderate-severe oropharyngeal dysphagia and esophageal dysphagia with silent aspiration of thin liquids with recommendation for minced and moist textures / thin liquids w/ strict aspiration precautions (liquid by tsp only, 2-3 swallows on each sip, GERD precautions). GI consult recommended. 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 Current Diet Ordered: Puree / Thin Dentition: Edentulous (lower dentition - ill fitting implants not present) and Upper Dentures Mental Status: Impaired (Poor recall, acute encephalopathy) Comment: acute encephalopathy Respiratory Status: Oxygenating on Room Air Penetration-Aspiration Scale Penetration-Aspiration Scale: OBJECTIVE ASSESSMENT OF SWALLOW FUNCTION (QUANTITATIVE ? PER TRIAL): PENETRATION / ASPIRATION SCALE (HERNANDEZ): 1 = does not enter airway 2 = enters airway/above vocal folds/ejected 3 = enters airway/above vocal folds/not ejected 4 = enters airway/contacts vocal folds/ejected 5 = enters airway/contacts vocal folds/not ejected 6 = enters airway/below vocal folds/ejected 7 = enters airway/below vocal folds/not ejected despite effort 8 = enters airway/below vocal folds/no effort VIDEOFLOROSCOPIC SCALE SCORE (HERNANDEZ): Grade I = aspiration of material that has penetrated into the laryngeal vestibule, intact cough reflex Grade II = aspiration < 10 % of the bolus, intact cough reflex Grade III = aspiration of < 10 % of the bolus, reduced cough reflex or aspiration of > 10 % of the bolus, intact cough reflex Grade IV = aspiration of > 10 % of the bolus, reduced cough reflex Penetration-Aspiration Scale Score Thin Liquid via teaspoon: Result: 2= enter airway/above vocal folds/ejected Thin Liquid via teaspoon Trial 2: Result: 2= enter airway/above vocal folds/ejected Thin Liquid via large single sip: cup: Result: 2= enter airway/above vocal folds/ejected [place] Thick Liquid via large single sip: cup: Result: 2= enter airway/above vocal folds/ejected Pudding via teaspoon: Result: 1= does not enter airway Comment: Esophageal screen - Retention in the lower esophagus w/ retrograde flow to the middle esophagus. Thin Liquid via single sip: straw: Result: 2= enter airway/above vocal folds/ejected Comment: large sip Esophageal screen - Retention in the lower esophagus w/ retrograde flow to the middle esophagus. 1/4 Cookie: Result: 1= does not enter airway Comment: Esophageal screen - Mild retention in the lower esophagus. Thin Liquid via single sip: straw Trial 2: Result: 2= enter airway/above vocal folds/ejected Comment: large sip Oral Phase Labial Seal: No Labial Escape Tongue Control During Bolus Hold: Posterior escape of greater than half of bolus Bolus Preparation/Mastication: Disorganized chewing/mashing with solid pieces of bolus unchewed Bolus Transport/Lingual Motion: Delayed initiation of tongue motion Oral Residue: Residue collection on oral structures Pharyngeal Phase Initiation of Pharyngeal Swallow: Bolus head in pyriforms Soft Palate Elevation: Trace column of contrast/air between soft palate and pharyngeal wall Laryngeal Elevation: Comp. Superior move thyroid cart w/comp. apprx arytenoid cart-epig pet Anterior Hyoid Excursion: Partial anterior movement Epiglottic Movement: Partial inversion Laryngeal Vestibule Closure at Height of Swallow: Incomplete; narrow column of air/contrast in laryngeal vestibule Pharyngeal Stripping Wave: Present - diminished Pharyngoesophageal Segment Opening: Complete distension and complete duration; no obstruction of flow Tongue Base Retraction: Narrow column of contrast between tongue base & post. pharyngeal wall Pharyngeal Residue: Collection of residue within or on pharyngeal structures (un-chewed piece of cookie in pyriforms) Esophageal Phase Esophageal Clearance: Esophageal retention w/ retrograde flow below pharyngoesophageal seg. Diagnosis/Impression Diagnosis: Mild-moderate oropharyngeal dysphagia R13.12; Esophageal dysphagia R13.14 Impression: The oral phase is primarily marked by... -Posterior loss of >1/2 of thin liquids to the pyriforms prior to swallow onset. -Delayed tongue motion for A-P transport. -Prolonged and decreased mastication w/ pieces of cookie remaining un-chewed in the oral cavity and pharynx after the swallow. CAREER DEVELOPMENT FACILITATOR had to cue the patient to spit out un-chewed piece in her mouth, then double swallow to clear un-chewed piece from pharynx after she had already taken a liquid wash. CAREER DEVELOPMENT FACILITATOR is concerned the patient is at risk for choking on consistencies that she cannot fully chew. The pharyngeal phase is primarily marked by... -Mild pharyngeal residue due to decreased tongue base retraction, pharyngeal stripping wave resulting in mild pharyngeal residues. Un-chewed cookie required double swallow to clear from pyriforms. -Delayed swallow onset. -Laryngeal penetration of thin and mildly thick liquids; however, no aspiration observed despite consumption of large sip size. The esophageal phase is primarily marked by... -Retention w/ retrograde flow of liquids and pudding. Pt is a risk for reflux aspiration. Recommendations Diet: Puree Textures and Thin Liquids Comment: Meds crushed in applesauce If increased s/s of aspiration, sensation of reflux, or regurgitation, STOP and resume meal at a later time. Currently, GI follow up is recommended as an OP due to chronic esophageal issues; however, consider GI as an inpatient if worsening signs of reflux/esophageal dysphagia. Compensatory Strategies: Small Bites, Small Sips, Alternate bites/solids and sips/liquids (Liquid was after every 1-2 bites), Sitting upright and Remain sitting upright for 30 minutes after PO intake (60 min after meals) Supervision: 1:1 Close Supervision (For meals, ok for liquids at bedside if positioned upright) Recommend Repeat Modified Barium Swallow: TBD Need for Skilled Speech Therapy Services: Yes Comment: -Train the patient in aspiration and reflux precautions. -Ongoing assessment of diet tolerance. Consider diet advancement to minced and moist textures after skilled meal analysis w/ CAREER DEVELOPMENT FACILITATOR. Recommend double swallows w/ bites of minced and moist. -Train the patient in oropharyngeal strengthening to improve bolus control, swallow onset, tongue base retraction, pharyngeal motility (lingual resistance, Tono if able, Jamee, and effortful). -Encourage use of lower implants/dentures w/ adhesive if possible to secure. Recommended Referrals: GI Consult (Recommend continued follow-up w/ GI as OP. Hx of abnormal esophageal motility, Schatzki ring s/p esophageal dilation, hiatal hernia, esophagitis.) Education Completed: 1. Described result of evaluation., 2. Pt understands evaluation & agrees with goals and treatment plan. and 7. Pt requires further education on strategies & risks. Status Active ST Patient: Active Contact Information [facility] Speech Therapy:: Jocelyne Chinchilla M.A. CCC-CAREER DEVELOPMENT FACILITATOR? Speech-Language Pathologist?? [facility] [address]?? [place] [address]?? [email or web address]?? [phone]
--- NOTE | 2024-01-04 12:00 | CASEMGMT ---
HERON ARREDONDO Assessment: Face to Face with pt for initial transition planning/care coordination assessment. HERON ARREDONDO introduced self and role at [facility], pt voices understanding and consents to assessment. Pt is A&O x3 and answers all questions appropriately at this time. Pt at bedside. He was gardner and answered some of assessment questions. Care providers, pharmacy, and demographics verified/updated. Admitting Dx: acute encephalopathy due to UTI Strata Score: 3 PCP:Toby Specialists:elidia Tovar mgmt Preferred Pharmacy: [facility] Insurance: [place] [employer] [facility] Prescription Benefit: yes LNOK: [place] Lover, Living Arrangements: Pt lives with in a two story home with 2 steps to enter. Pt reports she is I in ADLs and denies concerns at home. Transportation: Pt does not drive, transports her. DME:shower chair, cane, walker HHC/SNF: Denies hx of Pt states no concerns with going home at time of dc. Asked pt if he agrees, he shrugged his shoulders and said We will see. Pt states no further concerns/needs. Therapy ordered to eval, pt reports they have not seen her yet. CM to follow. Advised pt to ask CM if any further question/concerns/needs arise, voices understanding. Pt Goal: Home Plan: Home, follow therapy Richard SHELBY CM
--- NOTE | 2024-01-04 14:28 | PCM.DC ---
Discharge Instructions Diet Discharge Diet: - (Follow diet as outlined by speech therapy) Activity Discharge Activity: Return to Normal Activity Weight Bearing Status: Full weight bearing Follow Up Care Test Results: Test results from this visit will be discussed in further detail at your follow-up appointment, if applicable. Discharge Plan Admission Admit Date/Time: 01/03/24 16:36 Primary Reason for Your Visit: aspiration pneumonia, delirium Attending Provider: Rafita Siddiqui Primary Care Provider: Harish Luis Chi Consulting Providers: Zia Posey Discharge Orders/Prescriptions Prescriptions: New doxycycline monohydrate 100 mg tablet 100 mg PO BID Qty: 14 0RF Continued clonazepam 1 MG tablet 1 mg PO TID buspirone 7.5 MG tablet 7.5 mg PO BID omeprazole 20 mg capsule,delayed release(DR/EC) 20 mg PO DAILY metoprolol succinate 25 mg tablet extended release 24 hr 25 mg PO DAILY doxepin 150 mg capsule 150 mg PO QHS Eliquis 5 mg tablet 5 mg PO BID Referrals / Follow Up: Harish Luis Chi, MD [Primary Care Provider] - Disposition Disposition (needs filled in before D/C Order can be placed): Home, Self Care
--- NOTE | 2024-01-04 14:33 | PCM.DC.SUM ---
Providers Date of Admission: 01/03/24 Date of Discharge: 01/04/24 Primary Care Physician: Dr. Harish Luis MD Reason For Visit: ACUTE ENCEPHELOPATHY DUE TO UTI Diagnosis Discharge Diagnosis (1) Acute encephalopathy: Status: Acute Code(s): G93.40 - Encephalopathy, unspecified (2) Pneumonia: Status: Resolved Code(s): J18.9 - Pneumonia, unspecified organism Plan 1. Acute encephalopathy secondary to aspiration pneumonitis #2 acute aspiration pneumonitis #3 chronic oropharyngeal dysphagia #4 bacteriuria Urinary tract infection was ruled out Medications at Discharge Home Medications buspirone 7.5 mg tablet 7.5 mg PO BID ANXIETY 02/17/20 clonazepam 1 mg tablet 1 mg PO TID ANXIETY 02/17/20 doxepin 150 mg capsule 150 mg PO QHS ANXIETY 07/30/23 metoprolol succinate 25 mg tablet,extended release 24 hr 25 mg PO DAILY BLOOD PRESSURE 07/30/23 omeprazole 20 mg capsule,delayed release 20 mg PO DAILY GERD 07/30/23 apixaban 5 mg tablet (Eliquis) 5 mg PO BID blood thinner 01/03/24 doxycycline monohydrate 100 mg tablet 100 mg PO BID #14 tabs 01/04/24 Hospital Course Operations None Procedures None Summary of Care Provided Minutes Spent on Discharge: 31 Hospital Course: This 72-year-old white female was seen in the emergency room at [facility] due to confusion and generalized weakness. Patient had been talking about trying to operate the stove at her home in order to make Thanksgiving pumpkin pies which was not the case. Workup in the emergency room included a CBC which showed an elevated white blood cell count, hemoglobin was 11, and urinalysis showed 25-50 WBCs and 4+ bacteria with +[address] showed no acute process, chest x-ray showed bibasilar opacities concerning for pneumonia. Patient was not felt to have acute cystitis, she was admitted to PCU and placed on antibiotics, she was seen by speech therapy due to chronic oropharyngeal dysphagia. The following day patient was alert and oriented x 3 and appropriate. Patient was noncompliant with her diet at home. The following day, her white blood cell count was normal indicating probable aspiration pneumonitis, she was seen in consultation by speech therapy and underwent a modified barium swallow which showed the presence of oropharyngeal dysphagia her diet was recommended to be modified at home. On 01/04/2024, patient was seen and examined: On examination she appeared in good health and spirits, she does not appear to be in any distress. Vital signs as documented. Skin warm and dry and without overt rashes. Neck without JVD, thyroid appears normal, trachea is midline, neck is supple. Lungs clear, normal air movement was noted. Heart exam notable for regular rhythm, normal sounds and absence of murmurs, rubs or gallops. Abdomen unremarkable and without evidence of organomegaly, masses, or abdominal aortic enlargement, bowel sounds are present in all 4 quadrants, no abdominal tenderness was noted. Extremities nonedematous, no cyanosis was noted, no clubbing was noted. Neuro: Cranial nerves II through XII are grossly intact, no focal motor deficits were noted, sensation to light touch and pinprick is intact, motor exam 5/5 throughout. Psych: Patient is alert and oriented x3, she does not appear anxious or depressed, she does not appear agitated. On 01/04/2024, patient was felt to be stable for discharge home Weight / BMI Weight Weight: 52.3 kg Body Mass Index (BMI) 21.0 ABG / Lab / Microbiology Data 01/04/24 05:11 01/04/24 05:11 Laboratory: Laboratory Results - last 24 hr 01/03/24 13:20: Sodium 138, Potassium 3.4 L, Chloride 109 H, Carbon Dioxide 24.0, Anion Gap 5, BUN 8, Creatinine 0.96, Estim Creat Clear Calc 39.38, Est GFR (MDRD) Af Amer 73, Est GFR (MDRD) Non-Af 60, BUN/Creatinine Ratio 8.3 L, Glucose 114 H, Lactic Acid 1.0, Calcium 8.5, Magnesium 1.9, Troponin I High Sens 3 01/03/24 14:23: Urine Color Yellow, Urine Clarity Cloudy, Urine pH 7.0, Ur Specific [place] 1.010, Urine Protein 15 H, Urine Glucose (UA) Normal, Urine Ketones Negative, Urine Occult Blood 25 H, Urine Nitrite Negative, Urine Bilirubin Negative, Urine Urobilinogen Normal, Ur Leukocyte Esterase 500 H, Urine RBC 0-5 SEEN, Urine WBC 25-50 SEEN, Ur Squamous Epith Cells 0 SEEN, Ur Renal Epithelial Cell 0-5 SEEN, Urine Bacteria 4+, Urine Mucus 0 SEEN, Urine Yeast 1+ 01/04/24 05:11: WBC 9.1, RBC 3.20 L, Hgb 9.9 L, Hct 31.2 L, MCV 97.5, MCH 30.9, MCHC 31.7 L, RDW Std Deviation 53.7 H, RDW Coeff of Mehnaz 15.0 H, Plt Count 314, MPV 9.8, Immature Gran % (Auto) 0.300, Neut % (Auto) 73.4 H, Lymph % (Auto) 18.4 L, [place] % (Auto) 5.9, Eos % (Auto) 1.6, Baso % (Auto) 0.4, Absolute Neuts (auto) 6.7, Absolute Lymphs (auto) 1.68, Nucleated RBC % 0, Sodium 144, Potassium 4.2, Chloride 118 H, Carbon Dioxide 23.0, Anion Gap 3 L, BUN 9, Creatinine 0.75, Estim Creat Clear Calc 49.53, Est GFR (MDRD) Af Amer 98, Est GFR (MDRD) Non-Af 81, BUN/Creatinine Ratio 12.0, Glucose 83, Calcium 8.3 L Microbiology: Microbiology 01/03/24 19:40 Mucosa - Nasopharyngeal Respiratory Panel (PCR) - Final 01/03/24 19:40 Mucosa - Nasopharyngeal Coronavirus COVID-19 PCR - Final 01/03/24 14:23 Urine Catheter - Bass Legionella Antigen - Final 01/03/24 14:23 Urine Catheter - Bass Streptococcus pneumoniae Antigen (M - Final 01/03/24 13:20 Mucosa - Nose SARS-CoV-2, Influenza & RSV (PCR) - Final Radiography Diagnostic Testing: Radiology Impression Brain CT 01/03/24 13:54 IMPRESSION: No acute intracranial process identified. Mild chronic involutional and white matter changes. Electronically Signed: Jael Rosas MD at 15:38 EDT , Chest X-Ray 01/03/24 13:54 IMPRESSION: Bibasilar opacities, concerning for pneumonia. Electronically Signed: Jael Rosas MD at 15:33 EDT , D/C Instructions Discharge Diet: - (Follow diet as outlined by speech therapy) Weight Bearing Status: Full weight bearing Meaningful Use Info Meaningful Use Meaningful Use Diagnoses (Choose all that apply): None applicable Ischemic Stroke Statin Dosing Therapy Reference: STATIN DOSE THERAPY REFERENCE: * Patients > 75 years receive moderate or high dose statin therapy. * Patients 75 years or YOUNGER should receive HIGH intensity statin dose unless contraindicated. You will be required to document reason for non-treatment if statin daily dose does not meet guidelines. HIGH DOSE STATIN THERAPY DAILY Atorvastatin > than or = to 40 mg Rosuvastatin > than or = to 20 mg Amlodipine + Atorvastatin > than or = to 2.5/40 mg Ezetimibe + Simvastatin 10/80 mg Simvastatin 80mg Discharge Plan Admission Admit Date/Time: 01/03/24 16:36 Primary Reason for Your Visit: aspiration pneumonia, delirium Attending Provider: Rafita Siddiqui Primary Care Provider: Harish Luis Chi Consulting Providers: Zia Posey Discharge Orders/Prescriptions Prescriptions: New doxycycline monohydrate 100 mg tablet 100 mg PO BID Qty: 14 0RF Continued clonazepam 1 MG tablet 1 mg PO TID buspirone 7.5 MG tablet 7.5 mg PO BID omeprazole 20 mg capsule,delayed release(DR/EC) 20 mg PO DAILY metoprolol succinate 25 mg tablet extended release 24 hr 25 mg PO DAILY doxepin 150 mg capsule 150 mg PO QHS Eliquis 5 mg tablet 5 mg PO BID Referrals / Follow Up: Harish Luis Chi, MD [Primary Care Provider] - Disposition Disposition (needs filled in before D/C Order can be placed): Home, Self Care Charges/Coding Visit Charges Inpatient E&M: 80426 Disch Hosp >30min
[2024-01-04 15:00] VITALS: BP 110/60; PULSE 86; RESP 18; TEMP 36.3; O2SAT 94
--- NOTE | 2024-01-04 15:07 | CASEMGMT ---
Addendum entered by Brea Cannon 01/04/24 15:35: HERON ARREDONDO in to update regarding patient declining ST at discharge. RN CM instructed to follow-up with Dr. Luis should they reconsider. voiced understanding. Original Note: Patient has order for discharge. RN MARIA ELENA in to discuss needs at discharge. RN CM discussed ST with patient at discharge, patient is declining ST at discharge. Patient denies needs or help at discharge. RN CM advised patient to follow-up with Dr. Luis for addtional needs. Patient had no further questions or concerns.
== END 2024-01-04 16:01 | disposition home or self-care (01) | DRG 178 ==
LOC: ED 16:42 → PCU 16:51
PROVIDERS: Admitting Provider Internal Medicine; Emergency Provider Emergency Medicine; PCP Family Medicine Geriatric Medicine; Referring Provider Emergency Medicine; Visit Provider Internal Medicine
DX: J69.0 Pneumonitis due to inhalation of food and vomit (principal); G93.49 Other encephalopathy; N18.32 Chronic kidney disease, stage 3b; F32.A Depression, unspecified; K21.9 Gastro-esophageal reflux disease without esophagitis; F41.9 Anxiety disorder, unspecified; R13.12 Dysphagia, oropharyngeal phase; R82.71 Bacteriuria; Z79.01 Long term (current) use of 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s; Z86.16 Personal history of COVID-19; Z87.891 Personal history of nicotine dependence; Z79.899 Other long term (current) drug therapy; Z86.711 Personal history of pulmonary embolism
CPT/HCPCS: 36415; 51702; 70450; 71045; 74230; 80048; 81001; 83605; 83735; 84484; 85025; 87040; 87449; 87631; 87633; 87635; 92526; 92611; 93005; 94668; 97162; 97166; 97802; 99285; A4216; J0696

== ENCOUNTER → 2024-01-09 | Outpatient (CLI) | payer MEDICARE, SELFPAY ==
[2024-01-09 15:02] LABS: Absolute Lymphocyte Count 1.63 X10^3/uL (0.83-4.51); Absolute Neutrophil Count 4.3 X10^3/uL (2.0-7.7); Basophil# 0.06 X10^3/uL; Basophil% 0.9 % (0-1); Eosinophil# 0.09 X10^3/uL; Eosinophils% 1.4 % (0-5); Hematocrit 36.7 % (37-47); Hemoglobin 11.5 g/dL (12.0-15.0); Lymphocyte # 1.63 X10^3/ul (0.83-4.51); Mean Corp Hgb Conc 31.3 g/dL (32-36); Mean Corpuscular Hgb 30.6 pg (27.0-32.0); Mean Corpuscular Volume 97.6 fL (81-99); Mean Platelet Vol. 9.6 fl (6.2-12.0); Monocyte% 6.1 % (0-10); NRBC Flagged by Analyzer 0 % (0-5); Neutrophil # 4.32 X10^3/uL (2.7-7.7); Neutrophil % 66.1 % (47-70); Platelet Count 419 K/mm3 (150-450); RBC Distribution Width CV 14.9 % (11.6-14.6); RBC Distribution Width SD 53.9 fl (35.1-43.9); Red Blood Count 3.76 M/mm3 (4.2-5.4); White Blood Count 6.5 K/mm3 (4.4-11.0)
[2024-01-09 16:04] LABS: ALB/GLOB Ratio 0.8 RATIO (0.9-2.4); AST(SGOT) 10 U/L (15-37); Alanine Aminotransfer ALT/SGPT 13 U/L (13-56); Albumin, Serum 2.7 g/dL (3.2-5.0); Alkaline Phosphatase 90 U/L (45-117); Anion Gap 5 (5-15); BUN 7 mg/dL (7-18); BUN/Creat Ratio 7.7 RATIO (10-20); Calcium,Total 8.7 mg/dL (8.5-10.1); Chloride 114 mmol/L (98-107); Cholesterol 285 mg/dL (200); Creatinine, Serum 0.91 mg/dL (0.55-1.02); EST Glomerular Filtration Rate 65 mL/min (>60); Est Glom Filt Rate - Afr Amer 78 mL/min (>60); Globulin 3.5 g/dL (2.2-4.2); Glucose 108 mg/dL (74-106); High Density Lipoprotein 75 mg/dL; Potassium 3.9 mmol/L (3.5-5.1); Protein, Total 6.2 g/dL (6.4-8.2); Sodium Level 142 mmol/L (136-145); Thyroid Stim Hormone (TSH) 0.729 uIU/mL (0.358-3.740); Triglycerides 97 mg/dL; Very Low Density Lipoprotein 19 mg/dL (5-40)
[2024-01-10 02:05] LABS: Vitamin D,25 Hydroxy 35.4 ng/mL
== END | disposition home or self-care (01) ==
LOC: LAB 13:54
PROVIDERS: PCP Family Medicine Geriatric Medicine; Referring Provider Family Medicine Geriatric Medicine; Visit Provider Family Medicine Geriatric Medicine
DX: I10 Essential (primary) hypertension (principal); E55.9 Vitamin D deficiency, unspecified; E78.5 Hyperlipidemia, unspecified
CPT/HCPCS: 36415; 80053; 80061; 82306; 84443; 85025

== ENCOUNTER → 2024-02-19 | Outpatient (CLI) | payer MEDICARE, SELFPAY | END | disposition home or self-care (01) | LOC: POLAB3 14:25 | PROVIDERS: PCP Family Medicine Geriatric Medicine; Visit Provider Family Medicine Geriatric Medicine | DX: R68.83 Chills (without fever) (principal) | CPT/HCPCS: 87631 ==

== ENCOUNTER → 2024-03-31 | Outpatient (CLI) | payer MEDICARE, SELFPAY ==
--- NOTE | 2024-03-31 14:04 | CT_ITS ---
STUDY: CT BRAIN WITHOUT CONTRAST REASON FOR EXAM: Female, 73 years old. Migraine headaches. RADIATION DOSAGE (If Supplied By Facility): CTDIvol = ( 47.06 ) mGy, DLP = ( 872.68 ) mGycm TECHNIQUE: Transaxial CT imaging of the brain was performed without administration of intravenous contrast material. Individualized dose optimization techniques were used for this CT. COMPARISON: No relevant priors. FINDINGS: Normal soft tissue structures. Normal calvarium. There is mild cerebral atrophy with widening of the extra-axial spaces and ventricular dilatation. There are areas of decreased attenuation within the white matter tracts of the supratentorial brain, consistent with microvascular disease changes. Normal basal ganglia and thalami. Normal brainstem. There is mild cerebellar atrophy. There is no intracranial hemorrhage. There are no findings of an acute ischemic infarction. Atherosclerotic plaque formation of the cavernous portions of the internal carotid arteries bilaterally. Normal visualized paranasal sinuses. CT/Brain/Head without Contrast IMPRESSION: Chronic involutional changes of the brain. Electronically Signed: Rafael Sherwood MD at 14:38 EST ,
== END | disposition home or self-care (01) ==
PROVIDERS: PCP Family Medicine Geriatric Medicine; Referring Provider Family Medicine Geriatric Medicine; Visit Provider Family Medicine Geriatric Medicine
DX: R30.0 Dysuria (principal); R51.9 Headache, unspecified
CPT/HCPCS: 70450; 87086; 87088

== ENCOUNTER 2024-06-04 15:08 | Emergency (ER) | payer MEDICARE, SELFPAY ==
[2024-06-04 15:08] VITALS: BP 130/81; PULSE 106; RESP 19; TEMP 36.1; O2SAT 98
--- NOTE | 2024-06-04 15:26 | EX.ED.UPPERE ---
HPI History of Present Illness Chief Complaint: Upper Extremity Injury Informant: patient and spouse/S.O. Narrative Narrative: 74-year-old female presenting to the the chief complaint of right shoulder pain after a fall. Patient states she was in her kitchen and pressed the button on the office copy selector and fell over. She is unsure if she struck her shoulder on the floor or the cabinetry. She is unsure why she fell. states that the floor is tile and perhaps it was slick. She states she did not strike her head. She denies any neck back pain. She notes a bruise to the lateral proximal right forearm. She has no pain at the elbow joint. She notes pain generally about the shoulder area. Her and her tell me that she had fallen previously about a year ago and was seeing Dr. Lee with orthopedics and was felt to have a rotator cuff injury but she elected not to have surgery. She states that she was on Eliquis in the past but is not currently. She denies any hand symptoms. [facility] Medical History Hypoxia Fracture of humeral head [place] Pulmonary emboli Hypoxia Aspiration pneumonia Closed head injury Anxiety and depression Cervical stenosis of spine Vitamin D deficiency Irritable bowel syndrome without diarrhea Stenosis, cervical spine Chronic cough Allergic rhinitis Insomnia HLD (hyperlipidemia) Movement disorder Gastroparesis Dysphagia Pain from implanted hardware Wears hearing aid Wears dentures Wears glasses Post-menopausal Uses wheelchair Walker as ambulation aid Ambulates with cane Arthritis High cholesterol Back pain Migraine headache Gastric reflux Former smoker Shortness of breath on exertion History of stress test Hypertension COVID-19 Scoliosis of lumbar spine Segmental and somatic dysfunction of pelvic region Segmental dysfunction of thoracic region Segmental and somatic dysfunction of lumbar region Carpal tunnel syndrome on both sides Chronic lower back pain Home Medications ?Medication ?Instructions ?Recorded ?Last Taken ?Type buspirone 7.5 mg tablet 7.5 mg PO BID ANXIETY 02/17/20 04/26/22 History clonazepam 1 mg tablet 1 mg PO TID ANXIETY 02/17/20 04/26/22 History doxepin 150 mg capsule 150 mg PO QHS ANXIETY 07/30/23 Unknown History metoprolol succinate 25 mg 25 mg PO DAILY BLOOD PRESSURE 07/30/23 Unknown History tablet,extended release 24 hr omeprazole 20 mg capsule,delayed 20 mg PO DAILY GERD 07/30/23 Unknown History release apixaban 5 mg tablet (Eliquis) 5 mg PO BID blood thinner 01/03/24 Unknown History doxycycline monohydrate 100 mg 100 mg PO BID #14 tabs 01/04/24 Unknown Rx tablet Allergy/AdvReac Type Severity Reaction Status Date / Time Penicillins Allergy Rash Verified 06/04/24 15:08 Family History Mother Hypertension CVA (cerebral vascular accident) Heart disease Cerebral hemorrhage Father Cancer Hx stomach cancer and leukemia. Surgical History History of cardiac catheterization Hx of dilation and curettage History of 2 sections Hx of surgical procedure History of lumbar laminectomy Social History household members: spouse housing: house number of children: 2 Smoking Status: Current every day smoker tobacco type: e-cigarettes alcohol intake: never substance use type: does not use what type of physical activity do you participate in: none additional social history: Currently ambulating with a cane [facility] [facility] ED Constitutional Constitutional ED: Denies chills, fever(s) or weight loss Eyes Eyes: Denies change in vision or diplopia ENT ENT ED: Denies ear pain, rhinorrhea or sore throat Cardiovascular Cardiovascular: Denies chest pain, orthopnea, palpitations or racing heartbeat Respiratory/Chest Respiratory/Chest: Denies cough, dyspnea or orthopnea Gastrointestinal Gastrointestinal: Denies abdominal pain, diarrhea, nausea or vomiting Genitourinary Genitourinary ED: Denies dysuria, hematuria or urinary frequency Musculoskeletal Musculoskeletal: Reports other Details: See history of present illness ; Denies arthralgias, back pain, myalgias or neck pain Integumentary Reports other Details: Forearm contusion ; Denies abscess or rash Neurologic Neurologic: Denies headache(s), paresthesias or weakness Psychiatric Psychiatric: Denies anxiety, depression, suicidal ideation or suicidal thoughts Endocrine Endocrinology: Denies polydipsia, polyphagia or polyuria Allergic/Immunologic Allergic/Immunologic ED: Denies mouth swelling, tongue swelling or urticaria EXAM Physical Exam Const Vital Signs: 06/04/24 15:08 Temperature 97 F L Temperature Source Temporal Pulse Rate 106 H Respiratory Rate 19 H Blood Pressure 130/81 H Blood Pressure Mean 97 Pulse Ox 98 Oxygen Delivery Method Room Air Positive well nourished and well developed General Appearance ED: well developed and NAD HEENT Reports normocephalic, head/scalp atraumatic and moist mucous membranes Eyes PERRL and EOMs intact bilaterally Neck no lymphadenopathy, supple and no JVD Resp normal respiratory effort and clear to auscultation bilaterally Cardio regular rate, regular rhythm and no murmurs GI normal to inspection, nondistended, normoactive bowel sounds and non-tender Palpation: soft Back/Spine no CVA tenderness and normal ROM Extremity Extremity Narrative: Limited range of motion of the right shoulder secondary to pain. There is no palpable bony deformity or dislocation. No AC joint tenderness. I do not appreciate any ecchymosis abrasions lacerations or skin tears on the proximal humerus or shoulder region. There is a 2 cm round contusion over the muscle belly of the lateral proximal right forearm. No limited range of motion. No pain with range of motion. Neurovascular intact distal. General Extremety ED: Negative for edema General Extremity: Negative for edema Neuro oriented x3 and CN's II-XII intact bilaterally Sensorium / Orientation: alert Motor Exam: strength 5/5 throughout Psych mental status grossly normal Mood & Affect: Negative for depressed or tearful Skin no rashes or lesions noted and no wounds MDM MDM MDM Narrative Medical decision making narrative: Differential diagnosis includes but not limited to contusion fracture dislocation neurovascular injury tendon injury ligamentous injury labral injury My independent interpretation of plain films of the right shoulder is no acute fracture. Degenerative changes are noted. I do not see any evidence of AC separation. I would recommend supportive care of ice Tylenol/Motrin for pain. Follow-up with orthopedics in 14 days if not improving History & Record Review Discussion w/independent historian: Patient and Significant other Radiography Diagnostic Testing: Clinical Impression(s) from Imaging Studies Shoulder X-Ray 06/04/24 15:35 IMPRESSION: No definite acute displaced fracture. High-riding humeral head which may relate to chronic rotator cuff tear. Mild articular surface depression of the superomedial humeral head. Chronic appearing erosive changes of the greater humeral tuberosity. Ossified joint body along the posterior glenohumeral joint measuring up to 12 mm. Severe glenohumeral joint osteoarthritis. Reading Location: [facility] Discharge Plan Triage Chief Complaint: Upper Extremity Injury ED Provider: Irving White Dx/Rx/DC Orders Clinical Impression: Fall, Contusion of right shoulder, initial encounter Instructions: ED Contusion, Upper Extremity Prescriptions: No Action clonazepam 1 MG tablet 1 mg PO TID buspirone 7.5 MG tablet 7.5 mg PO BID omeprazole 20 mg capsule,delayed release(DR/EC) 20 mg PO DAILY metoprolol succinate 25 mg tablet extended release 24 hr 25 mg PO DAILY doxepin 150 mg capsule 150 mg PO QHS Eliquis 5 mg tablet 5 mg PO BID doxycycline monohydrate 100 mg tablet 100 mg PO BID Qty: 14 0RF Primary Care Provider: Harish Luis Chi Referrals: Daniel Lee MD [Med Staff - Active Staff] - 10-14 Days if not better Harish Luis Chi, MD [Primary Care Provider] - Print Language: Cook Islander Disposition Disposition: Home, Self Care
--- NOTE | 2024-06-04 15:35 | RAD_ITS ---
PROCEDURE: Right shoulder radiographs REASON FOR EXAM: INJURY TECHNIQUE: Four views of the right shoulder COMPARISON: None FINDINGS: See impression RAD/Shoulder min 2 Views IMPRESSION: No definite acute displaced fracture. High-riding humeral head which may relat e to chronic rotator cuff tear. Mild articular surface depression of the superomedial humeral head. Chronic appearing erosive changes of the greater humeral tuberosity. Ossified joint body along the posterior glenohumeral joint measuring up to 12 m m. Severe glenohumeral joint osteoarthritis. Reading Location: [facility]
[2024-06-04 15:44] VITALS: BMI 20.1
== END 2024-06-04 16:56 | disposition home or self-care (01) ==
PROVIDERS: Emergency Provider Emergency Medicine; PCP Family Medicine Geriatric Medicine; Visit Provider Emergency Medicine
DX: S40.011A Contusion of right shoulder, initial encounter (principal); F17.290 Nicotine dependence, other tobacco product, uncomplicated; W19.XXXA Unspecified fall, initial encounter; Z86.16 Personal history of COVID-19
CPT/HCPCS: 73030; 99282

== ENCOUNTER → 2024-07-15 | Outpatient (CLI) | payer MEDICARE, SELFPAY ==
--- NOTE | 2024-07-15 15:41 | CT_ITS ---
PROCEDURE: BRAIN/HEAD WITHOUT CONTRAST 07/15/2024 REASON FOR EXAM: UNSPECIFIED INJURY OF HEAD, INITIAL ENCOUNTER TECHNIQUE: Head CT without intravenous contrast. Coronal and Sagittal reconstruction series were provided. One or more dose reduction techniques were used (e.g., Automated exposure control, adjustment of the mA and/or kV according to patient size, use of iterative reconstruction technique. COMPARISON: CT brain 03/31/2024 FINDINGS: No acute intracranial hemorrhage, mass, mass effect, midline shift or pathologic extra-axial fluid collection. Mild parenchymal atrophy with commensurate increase in CSF containing spaces. Patchy white matter hypodensities, patient demographics favor chronic microvascular ischemic changes. Paranasal sinuses and mastoid air cells are clear. The calvarium is grossly intact. CT/Brain/Head without Contrast IMPRESSION: No acute intracranial abnormality. Chronic microvascular ischemia and involutional changes. Reading Location: [facility]
[2024-07-15 16:28] LABS: Absolute Lymphocyte Count 1.65 X10^3/uL (0.83-4.51); Absolute Neutrophil Count 4.2 X10^3/uL (2.0-7.7); Basophil# 0.04 X10^3/uL; Basophil% 0.6 % (0-1); Eosinophil# 0.12 X10^3/uL; Eosinophils% 1.8 % (0-5); Hematocrit 35.2 % (37-47); Hemoglobin 11.6 g/dL (12.0-15.0); Lymphocyte # 1.65 X10^3/ul (0.83-4.51); Lymphocyte % 25.3 % (19-41); Mean Corpuscular Hgb 32.6 pg (27.0-32.0); Mean Corpuscular Volume 98.9 fL (81-99); Mean Platelet Vol. 9.5 fl (6.2-12.0); Monocyte# 0.43 X10^3/uL; Monocyte% 6.6 % (0-10); NRBC Flagged by Analyzer 0 % (0-5); Neutrophil # 4.23 X10^3/uL (2.7-7.7); Neutrophil % 65.1 % (47-70); Platelet Count 415 K/mm3 (150-450); RBC Distribution Width CV 13.9 % (11.6-14.6); RBC Distribution Width SD 51.2 fl (35.1-43.9); Red Blood Count 3.56 M/mm3 (4.2-5.4); White Blood Count 6.5 K/mm3 (4.4-11.0)
[2024-07-15 17:42] LABS: AST(SGOT) 16 U/L (<=31); Alanine Aminotransfer ALT/SGPT 10 U/L (<=34); Albumin, Serum 3.2 g/dL (3.4-4.8); Alkaline Phosphatase 100 U/L (35-104); Anion Gap 10 (5-15); BUN 8 mg/dL (4-19); Calcium,Total 8.9 mg/dL (7.6-11.0); Carbon Dioxide 23.6 mmol/L (21.0-32.0); Chloride 109 mmol/L (98-108); Creatinine, Serum 0.97 mg/dL (0.70-1.20); EST Glomerular Filtration Rate 61 (>60); Globulin 3.1 g/dL (2.2-4.2); Glucose 114 mg/dL (70-99); Potassium 3.5 mmol/L (3.3-5.1); Protein, Total 6.3 g/dL (5.9-8.4); Sodium Level 143 mmol/L (133-145); Total Bilirubin 0.25 mg/dL (0.00-1.30)
[2024-07-15 18:00] LABS: Cholesterol 245 mg/dL (<=200); High Density Lipoprotein 78 mg/dL; Low Density Lipoprotein Calc. 151 mg/dL; Triglycerides 77 mg/dL; Very Low Density Lipoprotein 15 mg/dL (5-40); cholesterol:hdl ratio screen 3.13
[2024-07-15 18:02] LABS: Thyroid Stim Hormone (TSH) 0.847 uIU/mL (0.300-4.200); Vitamin D,25 Hydroxy 46.3 ng/mL (30-100)
== END | disposition home or self-care (01) ==
PROVIDERS: PCP Family Medicine Geriatric Medicine; Referring Provider Family Medicine Geriatric Medicine; Visit Provider Family Medicine Geriatric Medicine
DX: I10 Essential (primary) hypertension (principal); E55.9 Vitamin D deficiency, unspecified; E78.5 Hyperlipidemia, unspecified; S09.90XA Unspecified injury of head, initial encounter
CPT/HCPCS: 36415; 70450; 80053; 80061; 82306; 84443; 85025

== ENCOUNTER 2024-08-27 15:35 | Inpatient (IN) | payer MEDICARE, SELFPAY ==
[2024-08-27] VITALS (23 sets, daily range): BP systolic 138–186; BP diastolic 70–111; PULSE 96–121; RESP 18–36; TEMP 38.1–39.6; O2SAT 91–94; BMI 19.8; BMI 19.7
--- NOTE | 2024-08-27 15:55 | EKG12_ITS ---
Test Reason : Blood Pressure : */* mmHG Vent. Rate : 111 BPM Atrial Rate : 111 BPM P-R Int : 144 ms QRS Dur : 68 ms QT Int : 318 ms P-R-T Axes : 67 -29 63 degrees QTcB Int : 432 ms Sinus tachycardia Low voltage QRS Borderline ECG Confirmed by Mil Snyder ([id number]), editor map GEGE COSTELLO ([id number]) on 08/28/2024 10:15:17 AM Referred By: Confirmed By: Mil Snyder
--- NOTE | 2024-08-27 15:55 | RAD_ITS ---
PROCEDURE: CHEST 1 VIEW (PORTABLE) 08/27/2024 REASON FOR EXAM: FEVER, TACHYPNEA HYPOXIA TECHNIQUE: Frontal view of the chest. COMPARISON: 01/03/2024 FINDINGS: CARDIOMEDIASTINAL BORDERS: Cardiac silhouette within normal limits in size. Mediastinal contour also unchanged with calcification of the aortic knob. LUNGS: Mildly increased patchy opacity within the left lower lobe and mildly decreased patchy opacity within the right lower lobe. Otherwise grossly unchanged PLEURA: No pleural effusion or pneumothorax seen. 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 Thoracic spinal electrode noted. RAD/Chest 1 View (Portable) IMPRESSION: Mildly increased patchy opacity within the left lower lobe and mildly decreased patchy opacity within the right lower lobe. Otherwise grossly unchanged Reading Location: [id number]
--- NOTE | 2024-08-27 16:05 | EX.ED.DYSGE1 ---
HPI History of Present Illness Chief Complaint: Alt LOC Detail of Chief Complaint: Confusion, fever, moist nonproductive cough and ANDINO Informant: patient and spouse/S.O. Onset/Context/Timing Onset: Days Context: Sudden Onset Timing: Continuous Quality: Infectious symptoms Location: Respiratory Current Severity: Moderate Maximum Severity: Moderate Worsened by: Presumed bacterial infection Relieved by: nothing Associated Symptoms Associated Symptoms: Confusion, orthostatic lightheadedness fever Narrative Narrative: Patient is 74-year-old woman. She is a former smoker. She quit 8 years ago. She presently vapes. She is on 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 and omeprazole for GERD. She also is on antidepressants. Patient brought in because of confusion. Patient was brought to the ER by her because of confusion. She does endorse moist cough. She does endorse shortness of breath with walking across the room. She complains of bifrontal headache. She denies light sensitivity neck pain or neck stiffness. She is not aware that she has a rash. She denies abdominal pain, nausea, vomiting or diarrhea. She denies dysuria, frequency, urgency or hematuria. Prior similar symptoms: No Recent Illness/Hospitalization: No PFSH PFSH Medical History Hypoxia Fracture of humeral head [place] Pulmonary emboli Hypoxia Aspiration pneumonia Closed head injury Anxiety and depression Cervical stenosis of spine Vitamin D deficiency Irritable bowel syndrome without diarrhea Stenosis, cervical spine Chronic cough Allergic rhinitis Insomnia HLD (hyperlipidemia) Movement disorder Gastroparesis Dysphagia Pain from implanted hardware Wears hearing aid Wears dentures Wears glasses Post-menopausal Uses wheelchair Walker as ambulation aid Ambulates with cane Arthritis High cholesterol Back pain Migraine headache Gastric reflux Former smoker Shortness of breath on exertion History of stress test Hypertension COVID-19 Scoliosis of lumbar spine Segmental and somatic dysfunction of pelvic region Segmental dysfunction of thoracic region Segmental and somatic dysfunction of lumbar region Carpal tunnel syndrome on both sides Chronic lower back pain Home Medications ?Medication ?Instructions ?Recorded ?Last Taken ?Type buspirone 7.5 mg tablet 7.5 mg PO BID ANXIETY 02/17/20 04/26/22 History clonazepam 1 mg tablet 1 mg PO TID ANXIETY 02/17/20 04/26/22 History doxepin 150 mg capsule 150 mg PO QHS ANXIETY 07/30/23 Unknown History metoprolol succinate 25 mg 25 mg PO DAILY BLOOD PRESSURE 07/30/23 Unknown History tablet,extended release 24 hr omeprazole 20 mg capsule,delayed 20 mg PO DAILY GERD 07/30/23 Unknown History release apixaban 5 mg tablet (Eliquis) 5 mg PO BID blood thinner 01/03/24 Unknown History doxycycline monohydrate 100 mg 100 mg PO BID #14 tabs 01/04/24 Unknown Rx tablet Allergy/AdvReac Type Severity Reaction Status Date / Time Penicillins Allergy Rash Verified 06/04/24 15:08 Family History Mother Hypertension CVA (cerebral vascular accident) Heart disease Cerebral hemorrhage Father Cancer Hx stomach cancer and leukemia. Surgical History History of cardiac catheterization Hx of dilation and curettage History of 2 sections Hx of surgical procedure History of lumbar laminectomy Social History household members: spouse housing: house number of children: 2 Smoking Status: Current every day smoker tobacco type: e-cigarettes alcohol intake: never substance use type: does not use what type of physical activity do you participate in: none additional social history: Currently ambulating with a cane [facility] ED Constitutional Constitutional ED: Reports chills and fever(s) Eyes Eyes: Denies blurry vision, change in vision or diplopia ENT ENT ED: Denies ear pain, rhinorrhea or sore throat Cardiovascular Cardiovascular: Denies chest pain, orthopnea, palpitations or paroxysmal nocturnal dyspnea Respiratory/Chest Respiratory/Chest: Reports cough, dyspnea, dyspnea on exertion and sputum; Denies orthopnea or paroxysmal nocturnal dyspnea Gastrointestinal Gastrointestinal: Denies abdominal pain, constipation, diarrhea, melena, nausea or vomiting Genitourinary Genitourinary ED: Denies dysuria, hematuria or urinary frequency Musculoskeletal Musculoskeletal: Denies arthralgias, back pain, myalgias or neck pain Integumentary Denies abscess, Abrasions or rash Neurologic Neurologic: Reports headache(s) and weakness; Denies paresthesias Psychiatric Psychiatric: Denies anxiety or depression Endocrine Endocrinology: Denies cold intolerance or heat intolerance Hematologic/Lymphatic Hematologic/Lymphatic: Reports systems reviewed and no addt'l complaints, except as documented EXAM Physical Exam Const Vital Signs: 08/27/24 15:36 08/27/24 15:43 08/27/24 15:55 Temperature 103.2 F H 103.2 F H Temperature Source Oral Oral Pulse Rate 121 H 118 H Respiratory Rate 22 H 23 H Blood Pressure 151/111 H 151/111 H Blood Pressure Mean 124 124 Pulse Ox 91 91 Oxygen Delivery Method Room Air Room Air Room Air 08/27/24 16:13 08/27/24 16:15 08/27/24 16:30 Temperature Temperature Source Pulse Rate 114 H 113 H 112 H Respiratory Rate 22 H 26 H 18 Blood Pressure 174/99 H 172/101 H Blood Pressure Mean 121 124 Pulse Ox 94 94 Oxygen Delivery Method 08/27/24 16:43 08/27/24 16:45 08/27/24 17:00 Temperature 102.1 F H 101.9 F H Temperature Source Oral Oral Pulse Rate 108 H 112 H 108 H Respiratory Rate 22 H 30 H 36 H Blood Pressure 186/86 H 186/86 H 150/94 H Blood Pressure Mean 119 111 112 Pulse Ox 92 91 Oxygen Delivery Method Room Air Room Air 08/27/24 17:00 08/27/24 17:15 Temperature Temperature Source Pulse Rate 107 H 108 H Respiratory Rate 22 H 36 H Blood Pressure 154/70 H 150/94 H Blood Pressure Mean 95 112 Pulse Ox Oxygen Delivery Method Positive well nourished and well developed General Appearance ED: well developed and NAD; Negative for cyanotic, diaphoretic or pallor HEENT Reports dry mucous membranes HEENT Narrative: Patient not eaten since Sunday. Posterior pharynx is normal. Neck is supple. Trachea is midline. Ears are normal. Nares without discharge. Mouth ED: Yes dry mucous membranes Mouth: dry mucous membranes Eyes PERRL and EOMs intact bilaterally General Eye ED: Negative for pale conjunctiva or scleral icterus Neck no lymphadenopathy, supple and no JVD Neck Narrative: Trachea is midline. There is no stridor. Chest Wall palpation of chest normal Resp normal respiratory effort Resp Narrative: Patient is tachypneic. She has rales at the right base. Cardio regular rhythm, S1 normal heart sound, S2 normal heart sound and no murmurs Rate: tachycardic GI normal to inspection, nondistended, normoactive bowel sounds, non-tender, non-distended and no masses; Negative for hepatosplenomegaly Back/Spine no CVA tenderness Extremity normal to inspection General Extremety ED: Negative for edema or tenderness General Extremity: Negative for edema Neuro No oriented x3, CN's II-XII intact bilaterally and no sensory deficits noted Neuro Narrative: Moves all extremities. Strength appears normal. Sensorium / Orientation: Negative for alert Psych Psych Narrative: Flat affect. Depressed mood. Skin no rashes or lesions noted, no wounds and No skin turgor normal Skin Narrative: Skin turgor is poor. No obvious skin lesions noted. General Skin Exam: Negative for jaundice or pallor Sepsis Attestation Sepsis Attestation: Agree w/Sepsis Date exam was performed: 08/27/24 Time exam was performed: 16:00 Possible Source of Sepsis: Pulmonary Sepsis Organ Dysfunction Criteria Present: New/Unexplained change in mental status Fluid Resuscitation Fluid resuscitation indicated?: Yes Fluid Resuscitation ordered: Lesser volume fluid bolus ordered Amount of fluid ordered: 2,000 Reason for lesser fluid bolus:: Other (Patient is not hypotensive. Labs do not indicate that she is prerenal.) MDM MDM MDM Narrative Medical decision making narrative: Patient is encephalopathic due to infectious process. Suspect pneumonia. Sepsis order set was initiated. Patient received a fluid bolus. She was treated with Rocephin and azithromycin for community-acquired pneumonia. Suspect she has a right lower lobe pneumonia based on her exam. Clinically she is dehydrated. History & Record Review Additional record(s) reviewed:: Prior ED visit (Seen in May of this year for right shoulder contusion. Patient was seen December 2023 for altered mental status. She was found to have encephalopathy. Encephalopathy was due to UTI.) and Prior labs Lab Data Attestation: I reviewed the patient's lab results. Lab results narrative: White count is 6.5 with shift. H&H is normal. Comprehensive metabolic panel is unremarkable. Urinalysis macro was negative. In light of patient's constellation of symptoms feel that she is encephalopathic due to pneumonia. Labs: Laboratory Results - last 24 hr 08/27/24 08/27/24 16:00 16:15 WBC 6.5 RBC 3.82 L Hgb 12.1 Hct 36.2 L MCV 94.8 MCH 31.7 MCHC 33.4 RDW Std Deviation 46.5 H RDW Coeff of Mehnaz 13.2 Plt Count 332 MPV 9.6 Immature Gran % (Auto) 0.300 Neut % (Auto) 86.9 H Lymph % (Auto) 7.0 L Storey % (Auto) 5.1 Eos % (Auto) 0.2 Baso % (Auto) 0.5 Absolute Neuts (auto) 5.6 Absolute Lymphs (auto) 0.45 L Nucleated RBC % 0 Sodium 136 Potassium 4.3 Chloride 102 Carbon Dioxide 22.4 Anion Gap 11 BUN 13 Creatinine 1.08 Estim Creat Clear Calc 35.35 L Est GFR (MDRD) Non-Af 54 L BUN/Creatinine Ratio 12.2 Glucose 91 Lactic Acid 1.1 Calcium 8.4 Total Bilirubin 0.24 AST 53 H ALT 19 Alkaline Phosphatase 97 Total Protein 6.6 Albumin 3.3 L Globulin 3.3 Albumin/Globulin Ratio 1.0 Urine Color Yellow Urine Clarity Sl Cldy Urine pH 6.0 Ur Specific [place] 1.015 Urine Protein 30 H Urine Glucose (UA) Normal Urine Ketones Negative Urine Occult Blood Negative Urine Nitrite Negative Urine Bilirubin Negative Urine Urobilinogen Normal Ur Leukocyte Esterase Negative Radiography Chest X-Ray - ED: 1 View and Read by ED Physician (Patient is slightly rotated. There is an infiltrate on the left. There may be atelectasis or early infiltrate on the right. Comparison was January 03, 2024. At that time I felt that she had a right lower lobe infiltrate. This independently interpreted by me at [id number].) Diagnostic Testing: Clinical Impression(s) from Imaging Studies Chest X-Ray 08/27/24 15:55 IMPRESSION: Mildly increased patchy opacity within the left lower lobe and mildly decreased patchy opacity within the right lower lobe. Otherwise grossly unchanged Reading Location: [facility] Management Discussion w/another healthcare provider: Hospitalist (Spoke with Dr. Espino. Full admit PCU.) Treatment and Re-Evaluation :: Patient requested pain medicine. She states normally Dilaudid works. She was given 0.4 mg Critical Care Time Critical Care Time: Yes Critical care time (excluding procedures): 30-74 minutes (22 minutes), Including time spent: (History, physical, review of prior records, independent or potation of laboratories also and x-rays), Discussing w/Patient &/or Family/Web Database Developer, Discussing w/Consultants (Discussed with hospitalist), Arranging Admission or Transfer and - (Treatment for infectious cephalopathy/sepsis due to pneumonia) Discharge Plan Dx/Rx/DC Orders Clinical Impression: Sepsis, Encephalopathy due to infection, Left lower lobe pulmonary infiltrate Disposition Disposition: Acute Care Hospital [facility]
[2024-08-27] MEDS: 0.9% Normal Saline (1000mL) 1,000 ML 1000 ML IV ×2 (16:13→17:24)
[2024-08-27 16:17] LABS: Absolute Lymphocyte Count 0.45 X10^3/uL (0.83-4.51); Absolute Neutrophil Count 5.6 X10^3/uL (2.0-7.7); Basophil# 0.03 X10^3/uL; Basophil% 0.5 % (0-1); Eosinophil# 0.01 X10^3/uL; Eosinophils% 0.2 % (0-5); Hematocrit 36.2 % (37-47); Hemoglobin 12.1 g/dL (12.0-15.0); Lymphocyte # 0.45 X10^3/ul (0.83-4.51); Mean Corp Hgb Conc 33.4 g/dL (32-36); Mean Corpuscular Hgb 31.7 pg (27.0-32.0); Mean Corpuscular Volume 94.8 fL (81-99); Mean Platelet Vol. 9.6 fl (6.2-12.0); Monocyte# 0.33 X10^3/uL; Monocyte% 5.1 % (0-10); NRBC Flagged by Analyzer 0 % (0-5); Neutrophil # 5.62 X10^3/uL (2.7-7.7); Neutrophil % 86.9 % (47-70); POSITIVE DIFFERENTIAL YES; Platelet Count 332 K/mm3 (150-450); RBC Distribution Width CV 13.2 % (11.6-14.6); RBC Distribution Width SD 46.5 fl (35.1-43.9); Red Blood Count 3.82 M/mm3 (4.2-5.4); White Blood Count 6.5 K/mm3 (4.4-11.0)
[2024-08-27 16:20] LABS: Mucous, Urine 0 SEEN /hpf (<or=2+)
[2024-08-27 16:37] LABS: AST(SGOT) 53 U/L (<=31); Alanine Aminotransfer ALT/SGPT 19 U/L (<=34); Albumin, Serum 3.3 g/dL (3.4-4.8); Alkaline Phosphatase 97 U/L (35-104); Anion Gap 11 (5-15); BUN 13 mg/dL (4-19); BUN/Creat Ratio 12.2 RATIO (10-20); Calcium,Total 8.4 mg/dL (7.6-11.0); Carbon Dioxide 22.4 mmol/L (21.0-32.0); Chloride 102 mmol/L (98-108); Creatinine, Serum 1.08 mg/dL (0.70-1.20); EST Glomerular Filtration Rate 54 (>60); Estimated Creatinine Clearance 35.35 ml/min (50-250); Globulin 3.3 g/dL (2.2-4.2); Glucose 91 mg/dL (70-99); Potassium 4.3 mmol/L (3.3-5.1); Protein, Total 6.6 g/dL (5.9-8.4); Sodium Level 136 mmol/L (133-145); Total Bilirubin 0.24 mg/dL (0.00-1.30)
[2024-08-27 16:40] LABS: Lactic Acid 1.1 mmol/L (0.0-2.0)
[2024-08-27 16:53] LABS: Color, Urine Yellow (Yellow); Glucose, Dipstick Normal (Normal); Ketone-Dipstick Negative (Negative); Leukocyte Esterase-Dipstick Negative /ul (Negative); Nitrite-Dipstick Negative (Negative); Occult Blood-Urine Negative /ul (Negative); Protein-Dipstick 30 mg/dl (Negative); Specific Gravity, Urine 1.015 (1.002-1.030); Urine Bilirubin Dipstick Negative (Negative); Urine Clarity Sl Cldy (Clear); Urine Urobilinogen Normal (Normal)
--- NOTE | 2024-08-27 17:12 | HP.PCM.HOS_ITS ---
HPI - General General Date of Admission: 08/27/24 Date of Service: 08/27/24 Chief Complaint: Fever and cough with confusion HPI Narrative CAROL ZARAGOZA, is a 74 F who presented to [facility] ED on 08/27/2024 with fevers, cough and confusion. Patient lives at home with her . He noticed that she was having fevers with a moist nonproductive cough over the past few days and steadily became more confused. She was hospitalized here back in December for a somewhat similar presentation. Was found to have an aspiration pneumonitis at that time. Noted to have some degree of chronic oropharyngeal dysphagia. Modified barium swallow study was done then that showed mild to moderate oropharyngeal dysphagia and concern for esophageal dysphagia. However, patient improved quickly then and was able to be discharged home hospital day 2 without GI evaluation. On arrival to the ED patient was febrile to 103.2F and tachycardic to the 110s. Her respiratory rate was increased in the high 20s to low 30s but she was satting in the low to mid 90s on room air. Chest x-ray showed mild increased patchy opacities in both the right and left lower lobes concerning for pneumonia. She was started on IV antibiotics and hospitalist was contacted for admission. I saw the patient at bedside in the ED, was present. Patient was alert and making appropriate eye contact. She was able to tell me that she was at [facility] and that the year was 2024. She did not know the month. She was insisting to me that she wanted to go home and take care of the infection at home, but she had very poor insight into her current medical condition. Her at bedside noted that she was not at her baseline and had been very confused over the past few days. It was determined that she lacked medical capacity for decision-making. She did report a wet cough and has been noted that she has had issues with choking in the past. Will be admitted for further management. FORMERLY [facility], [facility] Medical History (Updated 08/28/24 @ 07:[address] Christofer Espino DO) Aspiration pneumonia Hypoxia Fracture of humeral head [place] Pulmonary emboli Hypoxia Closed head injury Anxiety and depression Cervical stenosis of spine Vitamin D deficiency Irritable bowel syndrome without diarrhea Stenosis, cervical spine Chronic cough Allergic rhinitis Insomnia HLD (hyperlipidemia) Movement disorder Gastroparesis Dysphagia Pain from implanted hardware Wears hearing aid Wears dentures Wears glasses Post-menopausal Uses wheelchair Walker as ambulation aid Ambulates with cane Arthritis High cholesterol Back pain Migraine headache Gastric reflux Former smoker Shortness of breath on exertion History of stress test Hypertension COVID-19 Scoliosis of lumbar spine Segmental and somatic dysfunction of pelvic region Segmental dysfunction of thoracic region Segmental and somatic dysfunction of lumbar region Carpal tunnel syndrome on both sides Chronic lower back pain Home Medications ?Medication ?Instructions ?Recorded ?Last Taken ?Type buspirone 7.5 mg tablet 7.5 mg PO BID ANXIETY 04/26/22 History clonazepam 1 mg tablet 1 mg PO TID ANXIETY 02/17/20 04/26/22 History doxepin 150 mg capsule 150 mg PO QHS ANXIETY Unknown History omeprazole 20 mg capsule,delayed 20 mg PO DAILY GERD 0 07/30/23 Unknown History release Allergy/AdvReac Type Severity Reaction Status Date / Time Penicillins Allergy Rash Verified 06/04/24 15:08 Family History Mother Hypertension CVA (cerebral vascular accident) Heart disease Cerebral hemorrhage Father Cancer Hx stomach cancer and leukemia. Surgical History History of cardiac catheterization Hx of dilation and curettage History of 2 sections Hx of surgical procedure History of lumbar laminectomy Social History household members: spouse housing: house number of children: 2 Smoking Status: Current every day smoker tobacco type: e-cigarettes alcohol intake: never substance use type: does not use what type of physical activity do you participate in: none additional social history: Currently ambulating with a cane ROS Constitutional Constitutional: Reports chills, fatigue, fever(s) and weakness Eyes Eyes: Denies change in vision Cardiovascular Cardiovascular: Denies chest pain Respiratory/Chest Respiratory/Chest: Reports cough, productive cough and shortness of breath at rest Gastrointestinal Gastrointestinal: Denies abdominal pain Genitourinary Genitourinary: Denies dysuria Musculoskeletal Musculoskeletal: Denies arthralgias or myalgias Vital Signs Vital Signs Vital Signs: 08/27/24 15:36 08/27/24 15:43 08/27/24 15:55 Temperature 103.2 F H 103.2 F H Temperature Source Oral Oral Pulse Rate 121 H 118 H Respiratory Rate 22 H 23 H Blood Pressure 151/111 H 151/111 H Blood Pressure Mean 124 124 Pulse Ox 91 91 Oxygen Delivery Method Room Air Room Air Room Air 08/27/24 16:13 08/27/24 16:15 08/27/24 16:30 Temperature Temperature Source Pulse Rate 114 H 113 H 112 H Respiratory Rate 22 H 26 H 18 Blood Pressure 174/99 H 172/101 H Blood Pressure Mean 121 124 Pulse Ox 94 94 Oxygen Delivery Method 08/27/24 16:43 08/27/24 16:45 Temperature 102.1 F H Temperature Source Oral Pulse Rate 108 H 112 H Respiratory Rate 22 H 30 H Blood Pressure 186/86 H 186/86 H Blood Pressure Mean 119 111 Pulse Ox 92 Oxygen Delivery Method Room Air Weight Weight: 49 kg Body Mass Index (BMI) 19.8 Physical Exam Const alert and no apparent distress Constitutional Narrative: Elderly female, thin and chronically ill-appearing, alert and oriented to person and place but not time, answering some questions with appropriate responses but with poor insight into her medical condition, otherwise sitting back in bed fairly comfortably and in no acute distress. General Appearance: cooperative and comfortable HEENT normocephalic, head/scalp atraumatic, hearing grossly normal bilaterally, nasal mucous membranes and turbinates normal and moist oral mucous membranes Eyes PERRL, EOMs intact bilaterally and conjunctivae normal Neck full ROM Chest inspection of chest normal Resp normal respiratory effort and no use of accessory muscles Resp Narrative: Breathing comfortably on room air at rest. Decreased breath sounds at bilateral lung bases with crackles noted. No wheezing noted. Cardio no murmurs and peripheral pulses 2+ throughout Cardio Narrative: Tachycardic, regular rhythm. GI normal to inspection, nondistended, normoactive bowel sounds, soft to palpation, non-tender and non-distended Back/Spine normal ROM Extremity normal to inspection, full ROM and no pedal edema Skin no rashes or lesions noted Neuro moves all extremities and no focal motor deficits Motor Exam: strength 5/5 throughout Results Lab / Micro Data 08/28/24 05:05 08/28/24 05:05 Labs: Laboratory Results - last 24 hr 08/27/24 16:00: WBC 6.5, RBC 3.82 L, Hgb 12.1, Hct 36.2 L, MCV 94.8, MCH 31.7, MCHC 33.4, RDW Std Deviation 46.5 H, RDW Coeff of Mehnaz 13.2, Plt Count 332, MPV 9.6, Immature Gran % (Auto) 0.300, Neut % (Auto) 86.9 H, Lymph % (Auto) 7.0 L, [place] % (Auto) 5.1, Eos % (Auto) 0.2, Baso % (Auto) 0.5, Absolute Neuts (auto) 5.6, Absolute Lymphs (auto) 0.45 L, Nucleated RBC % 0, Sodium 136, Potassium 4.3, Chloride 102, Carbon Dioxide 22.4, Anion Gap 11, BUN 13, Creatinine 1.08, E stim Creat Clear Calc 35.35 L, Est GFR (MDRD) Non-Af 54 L, BUN/Creatinine Ratio 12.2, Glucose 91, Lactic Acid 1.1, Calcium 8.4, Total Bilirubin 0.24, AST 53 H, ALT 19, Alkaline Phosphatase 97, Total Protein 6.6, Albumin 3.3 L, Globulin 3.3, Albumin/Globulin Ratio 1.0 08/27/24 16:15: Urine Color Yellow, Urine Clarity Sl Cldy, Urine pH 6.0, Ur Specific [place] 1.015, Urine Protein 30 H, Urine Glucose (UA) Normal, Urine Ketones Negative, Urine Occult Blood Negative, Urine Nitrite Negative, Urine Bilirubin Negative, Urine Urobilinogen Normal, Ur Leukocyte Esterase Negative Assessment & Plan Assessment/Plan (1) Encephalopathy due to infection: (2) Aspiration pneumonia: PLAN: Plan Patient is a 74-year-old female who presented [facility] ED on 08/27/2024 with fevers, cough and confusion. 1. Suspected aspiration pneumonia ? Admit under inpatient status to PCU. Met SIRS criteria on admission with fevers, tachycardia and tachypnea. Did have metabolic encephalopathy as noted below as well suspected secondary to infection. However, did not meet sepsis criteria given normal lactate, no hypotension, no DEE or other endorgan dysfunction. Chest x-ray on admit suspicious for aspiration pneumonia. Known history of oropharyngeal dysphagia as noted below. Will treat with IV ceftriaxone and azithromycin for now. Will keep n.p.o. and speech therapy consulted for further evaluation. Infectious workup pending. 2. Acute metabolic encephalopathy ? Alert and oriented x [address] but not time and poor insight into medical condition on admission. Suspected secondary to infection as above. Treatment as above. Notably is on several medications for anxiety/depression as noted below; okay to continue these medications but would avoid other sedating medications as able. 3. Chronic oropharyngeal dysphagia ? Speech therapy consulted as above. Had barium swallow study done back in December 2023 that showed mild to moderate oropharyngeal dysphagia and concern for esophageal dysphagia. Patient presented with aspiration pneumonitis at that time. However she improved quickly and was discharged home on hospital day 2 without GI evaluation. Appreciate speech therapy recommendations. 4. Suspected malnutrition ? Nutrition consulted. BMI 19 on admit with suspected poor p.o. intake in setting of dysphagia as above. Appreciate nutrition recommendations. 5. Anxiety/depression ? Continue home BuSpar, clonazepam 3 times daily as needed and doxepin at night. 6. GERD ? Continue home PPI. DVT prophylaxis: Lovenox CODE STATUS: Full code, unverified Expected disposition: TBD Total clinical time spent by myself addressing the patient's medical issues, reviewing all the data, and collaborating with patient's care team: 75 minutes. Charges/Coding Visit Charges Inpatient E&M: 74716 Init Hosp L3
[2024-08-27] MEDS: Ceftriaxone 2 GM in 0.9% Normal Saline (50mL MB+) 50 ML IV (17:23)
[2024-08-27] MEDS: HYDROmorphone 0.5 MG/0.5 ML SYRINGE 0.4 MG IV (17:29)
[2024-08-27 17:51] LABS: Prothrombin Time (Protime)PT. 13.4 SECONDS (11.7-14.9)
[2024-08-27 17:52] LABS: Partial Thromboplast Time 36.4 Seconds (24.1-36.2)
[2024-08-27] MEDS: Azithromycin 500 MG in 0.9% Normal Saline (250mL Bag) 250 ML 255 MG IV (18:03)
[2024-08-27 18:12] LABS: White Blood Cells 5-10 SEEN /hpf (0-5)
[2024-08-27 18:13] LABS: Yeast-Urine 2+ /hpf (None Seen)
[2024-08-27 18:14] LABS: Bacteria RARE /hpf (None Seen); Red Blood Cells-Urine 0-5 SEEN /hpf (0-5); Squamous Epithelial Cells - UA 0-5 SEEN /hpf (5-10)
--- NOTE | 2024-08-27 20:30 | ED.RN ---
pt requesting to leave ,dr moon aware and he stated pt has encephalopathy and does not have the capacity to leave.
[2024-08-27] MEDS: Acetaminophen 325 MG Tablet 650 MG PO (21:15)
--- OUTSIDE RECORDS SUMMARY | 2024-08-27 22:06 | XMS RPT_ITS | CCD ---
Author Organization [facility] Care Team Providers Care Cooker Pie Filling Name Role Phone Dr. Harish Luis Chi Primary Care Provider Dr. Jose Renee Attending Provider Dr. Demond Manley Referring Provider Dr. Harish Luis Chi Primary Care Provider Dr. Dimitry Rosales Emergency Provider Dr. Rafita Siddiqui Admit Provider Dr. Rafita Siddiqui Attending Provider Dr. Rafita Siddiqui Other Provider Dr. Doni Hanson Attending Provider Dr. Doni Hanson Other Provider Dr. Doni Hanson Referring Provider Tessa, Dr. Levi Attending Provider Dr. Vanessa Saunders Attending Provider Dr. Sondra Rooney Referring Provider Dr. Sheyla Slade Emergency Provider Dr. Nallely Mccann Other Provider Dr. Zia Posey Admit Provider Dr. Zia Posey Attending Provider Dr. Zia Posey Other Provider Dr. Nallely Mccann Attending Provider Dr. Harish Luis Chi Primary Care Provider [phone] Armando Miranda Emergency Provider Dr. Helena Ann Admit Provider Dr. Helena Ann Attending Provider Dr. Helena Ann Other Provider Dr. Jesse Camejo Attending Provider Dr. Jesse Camejo Other Provider Nell, Dr. Jesse Lemon Referring Provider Tessa, Dr. Levi Attending Provider Dr. Rivka Lombardi Attending Provider Toby GUIDO, Dr. Harish Flores Primary Care Provider Toby GUIDO, Dr. Harish Flores Attending Provider Toby GUIDO, Dr. Harish Flores Referring Provider Dr. Irving White DO Emergency Provider Daniel Lee Attending Unavailable Toby, Harish Chi Referring Unavailable Toby, Harish Chi Primary Care Unavailable Toby, Harish Chi Referring Unavailable Toby, Harish Chi Primary Care Unavailable Toby, Harish Chi Attending Unavailable Toby, Harish Chi Referring Unavailable Toby, Harish Chi Primary Care Unavailable Toby, Harish Chi Attending Unavailable Xu Macias Attending Unavailable Toby, Harish Chi Primary Care Unavailable Toby, Harish Chi Primary Care Unavailable Irving White Attending Unavailable Daniel Lee Attending Unavailable Toby, Harish Chi Referring Unavailable Toby, Harish Chi Primary Care Unavailable Toby, Harish Chi Primary Care Unavailable Rivka Lombardi Attending Unavailable Daniel Lee Attending Unavailable Toby, Harish Chi Referring Unavailable Toby, Harish Chi Primary Care Unavailable Daniel Lee Attending Unavailable Toby, Harish Chi Referring Unavailable Toby, Harish Chi Primary Care Unavailable Toby, Harish Chi Primary Care Unavailable Toby, Harish Chi Referring Unavailable Toby, Harish Chi Attending Unavailable Toby, Harish Chi Primary Care Unavailable Xu Macias Referring Unavailable Kalpesh, Zia Consulting Unavailable Rafita Siddiqui Attending Unavailable Kalpesh, Zia Admitting Unavailable Daniel Lee Consulting Unavailable Sondra Rooney Attending Unavailable Anastasia Khan Admitting Unavailable Toby, Harish Chi Primary Care Unavailable White, Anastasia L Consulting Unavailable Toby, Harish Chi Primary Care Unavailable Toby, Harish Chi Attending Unavailable Toby, Harish Chi Primary Care Unavailable Toby, Harish Chi Referring Unavailable Toby, Harish Chi Attending Unavailable Toby, Harish Chi Primary Care Unavailable Toby, Harish Chi Referring Unavailable Toby, Harish Chi Attending Unavailable Toby, Harish Chi Referring Unavailable Mollison, Daniel Attending Unavailable Toby, Harish Chi Primary Care Unavailable White, Anastasia L Attending Unavailable White, Anastasia L Admitting Unavailable Toby, Harish Chi Primary Care Unavailable Mollison, Daniel Consulting Unavailable White, Anastasia L Consulting Unavailable Toby, Harish Chi Primary Care Unavailable GilbertoXu Referring Unavailable Kalpesh, Zia Admitting Unavailable Kalpesh, Zia Attending Unavailable Kalpesh, Zia Consulting Unavailable Prayson, Jesse Referring Unavailable Prayson, Jesse Attending Unavailable Toby, Harish Chi Primary Care Unavailable Mollison, Daniel Referring Unavailable Mollison, Daniel Attending Unavailable Toby, Harish Chi Primary Care Unavailable Guilherme Collins Attending Unavailable Toby, Harish Chi Primary Care Unavailable Trinaky, Rafita Attending Unavailable Tereletsky, Rafita Consulting Unavailable Mollison, Daniel Consulting Unavailable Koram, Sondra Gay Attending Unavailable White, Anastasia L Admitting Unavailable Toby, Harish Chi Primary Care Unavailable White, Anastasia L Consulting Unavailable Koram, Sondra Gay Consulting Unavailable Mollison, Daniel Attending Unavailable Toby, Harish Chi Referring Unavailable Toby, Harish Chi Primary Care Unavailable Toby Dr. Harish GUIDO Chi Primary Care Provider Dr. Irving White DO Attending Provider [phone] Dr. Harish Luis MD, Chi Attending Provider Dr. Harish Luis MD, Chi Referring Provider Dr. Huber Ballard MD Emergency Provider Dr. Christofer Espino DO Admit Provider Dr. Christofer Espino DO Attending Provider Allergies Allergy Classification Reported Allergen(s) Allergy Type Date of Onset Reaction(s) Facility (20 sources) Penicillins; Translations: [Penicillins] Allergy to substance 0 Rash [facility] (13 sources) HYDROcodone Drug Allergy 3 NERVOUS, JITTERY [facility] (1 source) HYDROcodone Drug Allergy [facility] Repository Medications Current Medications Medication Drug Class(es) Dates Sig (Normalized) Sig (Original) apixaban 5 mg oral tablet (4 sources) Factor Xa Inhibitor Start: 01-03-2024 take 1 tablet by mouth twice daily Apixaban (Eliquis) 5 mg tablet Active 5 mg PO TWICE A DAY January 03, 2024 12:00am Start: 08-04-2023 End: 01-03-2024 take 2 tablets by mouth twice daily, then take 1 tablet by mouth twice daily Apixaban (Eliquis) 5 mg tablet Discontinued 5 mg PO TWICE A DAY August 04, 2023 12:00am January 03, 2024 3:13pm take 2 tabs (10mg) twice daily till 08/06/2023, then continue with one tablet (5mg) twice daily busPIRone hydrochloride 7.5 mg oral tablet (20 sources) Start: 02-17-2020 take 1 tablet by mouth twice daily Buspirone 7.5 MG tablet Active 7.5 mg PO TWICE A DAY February 17, 2020 1:00am clonazePAM 1 mg oral tablet (20 sources) Benzodiazepine Start: 02-17-2020 take 1 tablet by mouth three times daily Clonazepam 1 MG tablet Active 1 mg PO THREE TIMES A DAY February 17, 2020 1:00am cyclobenzaprine hydrochloride 10 mg oral tablet (5 sources) Muscle Relaxant Start: 02-19-2020 take 10 mg by mouth three times daily as needed Cyclobenzaprine Active 10 MG PO 3 TIMES DAILY NEEDED February 19, 2020 8:33am Do not take if patient feels dizzy or lightheaded doxepin hydrochloride 150 mg oral capsule (18 sources) Tricyclic Antidepressant Start: 07-30-2023 take 1 capsule by mouth at bedtime Doxepin 150 mg capsule Active 150 mg PO AT BEDTIME July 30, 2023 12:00am Start: 04-20-2022 End: 10-13-2022 take 1 capsule by mouth at bedtime Doxepin 150 mg capsule Discontinued 150 mg PO AT BEDTIME April 20, 2022 1:00am October 13, 2022 10:30am doxycycline monohydrate 100 mg oral tablet (2 sources) Tetracycline-class Drug Start: 01-04-2024 take 1 tablet by mouth twice daily Doxycycline Monohydrate 100 mg tablet Active 100 mg PO TWICE A DAY January 04, 2024 12:00am hydroCHLOROthiazide 12.5 mg / valsartan 80 mg oral tablet (5 sources) Thiazide Diuretic, Angiotensin 2 Receptor Concetta Start: 02-17-2020 take 1 tablet by mouth once daily Valsartan-Hydroch lorothiazide Active 1 TABLET PO DAILY February 17, 2020 12:00am metoclopramide 10 mg oral tablet (5 sources) Dopamine-2 Receptor Antagonist Start: 01-25-2020 take 10 mg by mouth four times daily Metoclopramide Hcl Active 10 MG PO 4 TIMES DAILY January 25, 2020 12:00am 24 hr metoprolol succinate 25 mg extended release oral tablet (3 sources) beta-Adrenergic Concetta Start: 07-30-2023 take 1 tablet by mouth once daily Metoprolol Succinate 25 mg tablet extended release 24 hr Active 25 mg PO DAILY July 30, 2023 12:00am omeprazole 20 mg delayed release oral capsule (18 sources) Proton Pump Inhibitor Start: 07-30-2023 take 1 capsule by mouth once daily Omeprazole 20 mg capsule,delayed release(DR/EC) Active 20 mg PO DAILY July 30, 2023 12:00am Start: 04-20-2022 End: 08-09-2022 take 1 capsule by mouth once daily Omeprazole 20 mg capsule,delayed release(DR/EC) Discontinued 20 mg PO DAILY April 20, 2022 1:00am August 09, 2022 8:34am topiramate 100 mg oral tablet (20 sources) Start: 02-17-2020 take 100 mg by mouth twice daily Topiramate Active 100 MG PO TWICE A DAY February 17, 2020 1:00am Start: 02-17-2020 End: 10-13-2022 take 1 tablet by mouth twice daily Topiramate 25 MG tablet Discontinued 25 mg PO TWICE A DAY February 17, 2020 1:00am October 13, 2022 10:30am Completed/Discontinued Medications Medication Drug Class(es) Dates Sig (Normalized) Sig (Original) acetaminophen 325 mg oral tablet (13 sources) Start: 08-02-2022 End: 01-03-2024 Acetaminophen 325 mg Tablet Discontinued 650 mg PO EVERY 6 HOURS NEEDED as needed for Pain 1-10 Or Fever >100.7 0 August 02, 2022 12:00am January 03, 2024 3:10pm Start: 08-02-2022 take 650 mg by mouth every six hours as needed Acetaminophen Active 650 MG PO EVERY 6 HOURS NEEDED 0 August 02, 2022 12:00am acetaminophen 325 mg / HYDROcodone bitartrate 5 mg oral tablet (20 sources) Opioid Agonist Start: 08-29-2023 End: 11-02-2023 Hydrocodone-Acetaminophen 5- 325 mg tablet Discontinued 1 {tbl} PO EVERY 6 HOURS NEEDED as needed for Pain 10 August 29, 2023 November 02, 2023 8:55am Start: 02-17-2020 take 1 tablet by norm th three times daily Hydrocodone-Acetaminophen Active 1 TABLE T PO THREE TIMES A DAY February 17, 2020 12:00am Start: 09-01-2018 End: 09-06-2018 Hydrocodone-Acetaminophen 1 TABLET tablet Discontinued 1 - 2 {tbl} PO EVERY 4 HOURS NEEDED as needed for Pain 10 September 01, 2018 12:00am September 03, 2018 12:00am September 06, 2018 12:08am Start: 09-01-2018 End: 09-06-2018 take 1 tablet by mouth every four hours as needed Hydrocodone-Acetaminophen Discontinued 1 - 2 TABLET PO EVERY 4 HOURS NEEDED 10 September 01, 2018 12:00am September 06, 2018 12:08am acetaminophen 325 mg / oxyCODONE hydrochloride 5 mg oral tablet (20 sources) Opioid Agonist Start: 06-20-2019 End: 06-27-2019 Oxycodone-Acetaminophen 1 TABLET tablet Discontinued 1 {tbl} PO EVERY 6 HOURS NEEDED as needed for Pain Score 6-10/10 30 7 June 20, 2019 June 26, 2019 12:00am June 27, 2019 12:02am Start: 06-20-2019 End: 06-27-2019 take 1 tablet by mouth every six hours as needed Oxycodone-Acetaminophen Discontinued 1 TABLET PO EVERY 6 HOURS NEEDED 30 7 June 20, 2019 June 27, 2019 12:02am bisacodyl 10 mg rectal suppository (12 sources) Stimulant Laxative Start: 10-14-2022 End: 07-30-2023 Bisacodyl 10 mg Suppository Discontinued 10 mg RC DAILY as needed for Constipation 0 October 14, 2022 12:00July 30, 2023 3:58pm [id number]. ciprofloxacin 500 mg oral tablet (12 sources) Quinolone Antimicrobial Start: 10-14-2022 End: 11-04-2022 take 1 tablet by mouth twice daily Ciprofloxacin Hcl 500 mg tablet Discontinued 500 mg PO TWICE A DAY 10 October 14, 2022 12:00am November 04, 2022 1:54pm citalopram 20 mg oral tablet (18 sources) Serotonin Reuptake Inhibitor Start: 08-09-2022 End: 10-13-2022 take 1 tablet by mouth once daily Citalopram 20 mg tablet Discontinued 20 mg PO DAILY August 09, 2022 12:00am October 13, 2022 10:30am Start: 02-17-2020 take 20 mg by mouth once daily Citalopram Active 20 MG PO DAILY February 17, 2020 12:00am dicyclomine hydrochloride 10 mg oral capsule (20 sources) Anticholinergic Start: 01-25-2020 End: 02-17-2020 take 1 capsule by mouth every four hours as needed for pain Dicyclomine 10 MG capsule Discontinued 10 mg PO Q4H as needed for abdominal pain January 25, 2020 12:40pm February 17, 2020 3:20pm docusate sodium 50 mg / sennosides, residential 8.6 mg oral tablet (12 sources) Start: 10-14-2022 End: 07-30-2023 Sennosides-Docusat e Sodium (Stool Softener-Stimulant Laxat) 8.6-50 mg Tablet Discontinued 2 {tbl} PO TWICE A DAY 0 October 14, 2022 12:00am July 30, 2023 4:02pm Take as scheduled for 3 days and then as needed for constipation Available [id number]. gabapentin 400 mg oral capsule (15 sources) Anti-epileptic Agent Start: 04-20-2022 End: 01-03-2024 take 1 capsule by mouth every six hours Gabapentin 400 mg capsule Discontinued 400 mg PO EVERY 6 HOURS April 20, 2022 1:00am January 03, 2024 3:12pm levoFLOXacin 750 mg oral tablet (13 sources) Quinolone Antimicrobial Start: 08-02-2022 End: 10-13-2022 take 1 tablet by mouth once daily Levofloxacin 750 mg tablet Discontinued 750 mg PO DAILY August 02, 2022 12:00am October 13, 2022 10:31am metroNIDAZOLE 500 mg oral tablet (12 sources) Nitroimidazole Antimicrobial Start: 10-14-2022 End: 11-04-2022 take 1 tablet by mouth every eight hours Metronidazole 500 mg tablet Discontinued 500 mg PO Q8H 15 October 14, 2022 12:00am November 04, 2022 1:54pm naproxen 500 mg oral tablet (20 sources) Nonsteroidal Anti-inflammatory Drug Start: 10-13-2022 End: 03-17-2023 take 1 tablet by mouth every twelve hours as needed for pain Naproxen 500 mg tablet Discontinued 500 mg PO Q12H as needed for arthritis pain 0 October 14, 2022 8:30am March 17, 2023 4:28pm nystatin [id number] unt/ml oral suspension (13 sources) Polyene Antifungal Start: 08-08-2022 End: 08-15-2022 take 1 mL by mouth twice daily Nystatin 100,000 unit/mL suspension Discontinued 10 mL PO TWICE A DAY 140 7 August 08, 2022 12:00am August 14, 2022 12:00am August 15, 2022 12:04am swish and swallow Start: 08-08-2022 End: 08-15-2022 take 1 mL by mouth twice daily Nystatin Discontinued 1 0 ML PO TWICE A DAY 140 7 August 08, 2022 12:00am August 15, 2022 12:04am swish and swallow pantoprazole 40 mg delayed release oral tablet (20 sources) Proton Pump Inhibitor Start: 11-04-2022 End: 03-17-2023 take 1 tablet by mouth once daily Pantoprazole (Protonix) 40 mg tablet,delayed release (DR/EC) Discontinued 40 mg PO DAILY November 04, 2022 12:00am March 17, 2023 4:28pm Start: 08-09-2022 End: 10-13-2022 take 1 tablet by mouth once daily Pantoprazole 40 mg tablet,delayed release (DR/EC) Discontinued 40 mg PO DAILY August 09, 2022 12:00am October 13, 2022 10:30am polyethylene glycol 3350 33647 mg powder for oral solution (12 sources) Osmotic Laxative Start: 10-14-2022 End: 03-17-2023 Polyethylene Glycol 3350 (Miralax) 17 gram/dose powder Discontinued 17 g PO DAILY 238 October 14, 2022 12:00am March 17, 2023 4:28pm available over the counter predniSONE 20 mg oral tablet (7 sources) Start: 03-17-2023 End: 07-30-2023 take 2 tablets by mouth once daily Prednisone 20 mg tablet Discontinued 40 mg PO DAILY 10 March 17, 2023 1:00am July 30, 2023 4:02pm Start: 03-17-2023 End: 07-30-2023 take 40 mg by mouth once daily Prednisone Discontinued 40 MG PO DAILY 10 March 17, 2023 1:00am July 30, 2023 4:02pm traMADol hydrochloride 50 mg oral tablet (7 sources) Opioid Agonist Start: 03-17-2023 End: 11-02-2023 take 1 tablet by mouth every six hours as needed for pain Tramadol 50 mg tablet Discontinued 50 mg PO EVERY 6 HOURS as needed for pain 12 March 17, 2023 1:00am November 02, 2023 8:55am traZODone hydrochloride 150 mg oral tablet (20 sources) Serotonin Reuptake Inhibitor Start: 02-17-2020 End: 08-09-2022 take 1 tablet by mouth at bedtime Trazodone 150 MG tablet Discontinued 150 mg PO AT BEDTIME February 17, 2020 1:00am August 09, 2022 8:34am Start: 02-17-2020 take 300 mg by mouth at bedtim e Trazodone Active 300 MG PO AT BEDTIME February 17, 2020 12:00am Problems Active Problems Problem Classification Problem Date Documented Da te Episodic/Chronic Abdominal pain (20 sources) Generalized abdominal pain; Translations: [Generalized abdominal pain] 01-26-2020 Episodic Acute and unspecified renal failure (4 sources) Acute renal failure syndrome; Translations: [Acute kidney failure, unspecified] 07-30-2023 Episodic Aspiration pneumonitis; food/vomitus (4 sources) Aspiration pneumonia; Translations: [Pneumonitis due to inhalation of food and vomit] 07-30-2023 Episodic Cardiac dysrhythmias (20 sources) Palpitations 01-23-2020 Episodic Complication of device; implant or graft (17 sources) Pain; Translations: [Pain due to other internal prosthetic devices, implants and grafts, initial encounter] 04-27-2022 Episodic E Codes: Fall (15 sources) Fall; Translations: [Unspecified fall, initial encounter] Onset: 4 07-24-2023 Episodic Esophageal disorders (20 sources) Gastroesophageal reflux disease 01-23-2020 Chronic Essential hypertension (1 source) Essential (primary) hypertension; Translations: [Essential (primary) hypertension] Onset: 5 Chronic Fluid and electrolyte disorders (4 sources) Dehydration; Translations: [Dehydration] 07-30-2023 Episodic Fracture of upper limb (11 sources) Closed fracture proximal humerus, greater tuberosity; Translations: [Displaced fracture of greater tuberosity of right humerus, initial encounter for closed fracture] Onset: 4 07-24-2023 Episodic Genitourinary symptoms and ill-defined conditions (18 sources) Retention of urine; Translations: [Retention of urine, unspecified] Onset: 5 10-13-2022 Episodic Headache; including migraine (20 sources) Migraine 01-23-2020 Chronic Influenza (20 sources) Influenza; Translations: [Influenza due to unidentified influenza virus with other respiratory manifestations] 07-29-2022 Episodic Intestinal obstruction without hernia (19 sources) Paralytic ileus; Translations: [Paralytic ileus of small intestine and colon] 10-13-2022 Episodic Malaise and fatigue (20 sources) Asthenia; Translations: [Weakness] 02-17-2020 Episodic Mood disorders (20 sources) Depression 01-23-2020 Chronic Open wounds of head; neck; and trunk (20 sources) Patient encounter status; Translations: [Encounter for assessment of wound] 07-13-2017 Episodic Other acquired deformities (20 sources) Scoliosis of lumbar spine; Translations: [Scoliosis, unspecified] 07-15-2018 Chronic Other acquired deformities (20 sources) Scoliosis deformity of spine; Translations: [Scoliosis, unspecified] 02-17-2020 Chronic Other aftercare (2 sources) Long-term current use of 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; 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] 08-19-2023 Episodic Other bone disease and musculoskeletal deformities (20 sources) Segmental and somatic dysfunction; Translations: [Segmental and somatic dysfunction of lumbar region] 02-17-2020 Episodic Other bone disease and musculoskeletal deformities (20 sources) Thoracic segmental dysfunction; Translations: [Segmental and somatic dysfunction of thoracic region] 02-17-2020 Episodic Other circulatory disease (3 sources) Low blood pressure; Translations: [Hypotension, unspecified] 07-30-2023 Episodic Other circulatory disease (1 source) Hypotension, unspecified; Translations: [Hypotension, unspecified] 07-30-2023 Episodic Other connective tissue disease (5 sources) Weakness of face muscles; Translations: [Facial weakness] 08-03-2022 Episodic Other connective tissue disease (5 sources) Facial weakness; Translations: [Facial weakness] 08-03-2022 Episodic Other gastrointestinal disorders (13 sources) Dysphagia; Translations: [Dysphagia, unspecified] 08-11-2022 Episodic Other injuries and conditions due to external causes (13 sources) Traumatic hematoma; Translations: [Other injury of unspecified body region, initial encounter] 09-03-2022 Episodic Other injuries and conditions due to external causes (16 sources) Closed injury of head; Translations: [Unspecified injury of head, initial encounter] 09-03-2022 Episodic Other injuries and conditions due to external causes (1 source) Unspecified injury of head, initial encounter; Translations: [Head injury, unspecified] 07-30-2023 Episodic Other lower respiratory disease (14 sources) Hypoxemia; Translations: [Hypoxemia] 07-29-2022 Episodic Other lower respiratory disease (5 sources) Hypoxia; Translations: [Hypoxemia] 07-30-2023 Episodic Other lower respiratory disease (1 source) Single lobe lung infiltrate; Translations: [Other nonspecific abnormal finding of lung field] 08-27-2024 Episodic Other nervous system disorders (3 sources) Disorder of brain; Translations: [Encephalopathy, unspecified] 01-12-2024 Chronic Other nervous system disorders (1 source) Encephalopathy, unspecified; Translations: [Encephalopathy, unspecified] Onset: 4 Chronic Other nervous system disorders (9 sources) Toxic metabolic encephalopathy; Translations: [Toxic metabolic encephalopathy] 11-12-2022 Episodic Other non-traumatic joint disorders (1 source) Pain in right shoulder; Translations: [Pain in right shoulder] Onset: 5 Episodic Other screening for suspected conditions (not mental disorders or infectious disease) (20 sources) CT of abdomen abnormal; Translations: [Abnormal findings on diagnostic imaging of other abdominal regions, including retroperitoneum] 10-13-2022 Episodic Comment on above: Pneumatosis of right colon also seen in a CAT scan from 2019 Peripheral and visceral atherosclerosis (20 sources) Vascular insufficiency of intestine; Translations: [Vascular disorder of intestine, unspecified] 02-17-2020 Chronic Pneumonia (except that caused by tuberculosis or sexually transmitted disease) (20 sources) Pneumonia; Translations: [Pneumonia, unspecified organism] Onset: 4 07-29-2022 Episodic Pulmonary heart disease (5 sources) Pulmonary embolism; Translations: [Other pulmonary embolism without acute cor pulmonale] Onset: 4 07-30-2023 Episodic Residual codes; unclassified (1 source) Altered mental status; Translations: [Altered mental status, unspecified] 11-01-2022 Episodic Residual codes; unclassified (1 source) Altered mental status, unspecified; Translations: [Altered mental status] 11-01-2022 Episodic Respiratory failure; insufficiency; arrest (adult) (20 sources) Respiratory failure; Translations: [Respiratory failure, unspecified, unspecified whether with hypoxia or hypercapnia] 07-29-2022 Episodic Septicemia (except in labor) (1 source) Sepsis; Translations: [Sepsis, unspecified organism] 08-27-2024 Episodic Spondylosis; intervertebral disc disorders; other back problems (20 sources) Chronic low back pain; Translations: [Chronic low back pain] 01-23-2020 Episodic Comment on above: Has electrical stimu lator Sprains and strains (13 sources) Strain of neck muscle; Translations: [Strain of muscle, fascia and tendon at neck level, initial encounter] 09-03-2022 Episodic Substance-related disorders (1 source) Opioid dependence, uncomplicated; Translations: [Opioid dependence, uncomplicated] Onset: 4 Chronic Superficial injury; contusion (6 sources) Contusion of lower back; Translations: [Contusion of lower back and pelvis, initial encounter] 09-06-2023 Episodic Unclassified (1 source) Low back pain, unspecified; Translations: [Low back pain, unspecified] Onset: 4 Urinary tract infections (2 sources) Acute urinary tract infection; Translations: [Urinary tract infection, site not specified] 01-03-2024 Episodic Past or Other Problems Problem Classification Problem Date Documented Da te Episodic/Chronic Other injuries and conditions due to external causes (1 source) Encounter for examination and observation following other accident; Translations: [Encounter for examination and observation following other accident] Onset: 08-17-2023 Episodic Other lower respiratory disease (9 sources) Hypoxemia; Translations: [Hypoxemia] Onset: 08-04-2023 07-29-2022 Episodic Other nutritional; endocrine; and metabolic disorders (1 source) Anorexia; Translations: [Anorexia] Onset: 08-06-2023 Episodic Residual codes; unclassified (1 source) Chills (without fever); Translations: [Chills (without fever)] Onset: 03-20-2024 Episodic Results Test Name Value Interpretation Reference Range Facility Absolute lymphocyte countOrd ered By: Huber Ballard on 08-27-2024 Lymphocytes Auto (Unsp spec) [#/Vol] 0.45 10*3/uL Low 0.83-4.51 [facility] Absolute neutrophil countOrd ered By: Huberyandel Ballard on 08-27-2024 Neutrophils (Bld) [#/Vol] 5.6 10*3/uL 2.0-7.7 [facility] Activated partial thrombopla stin time (aPTT) in platelet poor plasma by coagulation aOrdered By: Huber Ballard on 08-27-2024 aPTT Coag (PPP) [Time] 36.4 s High 24.1-36.2 [facility] Anion gap in Serum or Plasma Ordered By: Huber Ballard on 08-27-2024 Anion gap [Moles/Vol] 11 mmol/L 5-15 [facility] Automated lymphocyte count a s percentage of total leukocytesOrdered By: Huber Ballard on 08-27-2024 Lymphocytes/100 WBC Auto (Unsp spec) 7.0 % Low 19-41 [facility] BUN/creatinine ratioOrdered By: Huberyandel Ballard on 08-27-2024 Urea nitrogen/Creatinine [Mass ratio] 12.2 mg/mg 10-20 [facility] Basophil percentageOrdered B y: Huber Ballard on 08-27-2024 Basophils/100 WBC (Bld) 0.5 % 0-1 [facility] Bilirubin Test strip Ql (U)O rdered By: Huber Ballard on 08-27-2024 Bilirubin Ql (U) Negative Negative [facility] Bilirubin, totalOrdered By: Huber Ballard on 08-27-2024 Bilirubin [Mass/Vol] 0.24 mg/dL 0.00-1.30 [facility] Carbon dioxide, total [Moles /volume] in Central venous bloodOrdered By: Huber Ballard on 08-27-2024 CO2 [Moles/Vol] 22.4 mmol/L 21.0-32.0 [facility] Chloride assayOrdered By: Ug o Ballard on 08-27-2024 Chloride [Moles/Vol] 102 mmol/L 98-108 [facility] Eosinophil percentageOrdered By: Huber Ballard on 08-27-2024 Eosinophils/100 WBC (Bld) 0.2 % 0-5 [facility] Erythrocyte distribution wid th ratioOrdered By: Huber Ballard on 08-27-2024 Erythrocyte distribution width (RBC) [Ratio] 13.2 % 11.6-14.6 [facility] Erythrocyte distribution wid th standard deviationOrdered By: Huber Ballard on 08-27-2024 Erythrocyte distribution width (RBC) [Ratio] 46.5 fl High 35.1-43.9 [facility] Glomerular filtration rate ( GFR) estimation/1.73 sq m using serum, plasma, or whole bOrdered By: Huber Ballard on 08-27-2024 GFR/1.73 sq M.predicted among non-blacks MDRD (S/P/Bld) [Vol rate/Area] 54 mL/min/{1.73_m2} Low >60 [facility] Comment on above: mL/min/1.73m2 CKD-EP I Creatinine Equation (2020) Hematocrit Auto (Bld) [Volum e fraction]Ordered By: Huber Ballard on 08-27-2024 Hematocrit (Bld) [Volume fraction] 36.2 % Low 37-47 [facility] Hemoglobin measurementOrdere d By: Huber Ballard on 08-27-2024 Hemoglobin (Bld) [Mass/Vol] 12.1 g/dL 12.0-15.0 [facility] Immature granulocytes/100 WB C Auto (Bld)Ordered By: Huber Ballard on 08-27-2024 Immature granulocytes/100 WBC (Bld) 0.300 % 0.0-0.9 [facility] Comment on above: IG% - Immature Granu locytes (promyelocytes, myelocytes and metamyelocytes) > 1% indicates that a LEFT SHIFT is Present. International normalized rat io (INR) calculationOrdered By: Huber Ballard on 08-27-2024 INR Coag (Bld) [Relative time] 1.0 {INR} [facility] Ketones Test strip Ql (U)Ord ered By: Huber Ballard on 08-27-2024 Ketones Ql (U) Negative Negative [facility] Laboratory - Chemistry and C hemistry - challengeOrdered By: Huber Ballard on 08-27-2024 AST [Catalytic activity/Vol] 53 U/L High <32 [facility] Comment on above: Hemolysis present, R esults could be affected. Lactic acid measurementOrder ed By: Huber Ballard on 08-27-2024 Lactate [Moles/Vol] 1.1 mmol/L 0.0-2.0 [facility] MCV (mean corpuscular volume ) determinationOrdered By: Huber Ballard on 08-27-2024 MCV (RBC) [Entitic vol] 94.8 fL 81-99 [facility] Mean corpuscular hemoglobin (MCH) determinationOrdered By: Huberyandel Ballard on 08-27-2024 MCH (RBC) [Entitic mass] 31.7 pg 27.0-32.0 [facility] Mean corpuscular hemoglobin concentration (MCHC) determinationOrdered By: Huberyandel Ballard on 08-27-2024 MCHC (RBC) [Mass/Vol] 33.4 g/dL 32-36 [facility] Mean platelet volume determi nationOrdered By: Huber Ballard on 08-27-2024 Platelet mean volume (Bld) [Entitic vol] 9.6 fL 6.2-12.0 [facility] Microscopic analysis of urin e for red blood cells (RBC)Ordered By: Huber Ballard on 08-27-2024 Microscopic analysis of urine for red blood cells (RBC) 0-5 SEEN /hpf 0-5 [facility] Monocyte percentageOrdered B y: Huber Ballard on 08-27-2024 Monocytes/100 WBC (Bld) 5.1 % 0-10 [facility] Mucus LM Ql (Urine sed)Order ed By: Huber Ballard on 08-27-2024 Mucus Ql (Urine sed) 0 SEEN /hpf [facility] Neutrophil percentageOrdered By: Huber Ballard on 08-27-2024 Neutrophils/100 WBC (Bld) 86.9 % High 47-70 [facility] Nitrite Test strip Ql (U)Ord ered By: Huber Ballard on 08-27-2024 Nitrite Ql (U) Negative Negative [facility] Nucleated red blood cell per centageOrdered By: Huber Ballard on 08-27-2024 Nucleated RBC/100 WBC (Bld) [Ratio] 0 % 0-5 [facility] Platelet countOrdered By: Malcom Ballard on 08-27-2024 Platelets (Bld) [#/Vol] 332 10*3/uL 150-450 [facility] Potassium measurement (mass/ volume)Ordered By: Huber Ballard on 08-27-2024 Potassium (Unsp spec) [Mass/Vol] 4.3 mmol/L 3.3-5.1 [facility] Comment on above: Hemolysis present, R esults could be affected. Protein Test strip Ql (U)Ord ered By: Huber Ballard on 08-27-2024 Protein Ql (U) 30 mg/dl High Negative [facility] Prothrombin timeOrdered By: Huber Ballard on 08-27-2024 PT Coag (PPP) [Time] 13.4 s 11.7-14.9 [facility] RBC Auto (Bld) [#/Vol]Ordere d By: Huber Ballard on 08-27-2024 RBC (Bld) [#/Vol] 3.82 10*6/uL Low 4.2-5.4 [facility] Serum creatinine measurement (mass/volume)Ordered By: Huber Ballard on 08-27-2024 Creatinine [Mass/Vol] 1.08 mg/dL 0.70-1.20 [facility] Serum globulin measurementOr dered By: Huber Ballard on 08-27-2024 Globulin (S) [Mass/Vol] 3.3 g/dL 2.2-4.2 [facility] Serum glucose measurement (m ass/volume)Ordered By: Huber Ballard on 08-27-2024 Glucose [Mass/Vol] 91 mg/dL 70-99 [facility] Serum or plasma alanine soliz otransferase (ALT) measurementOrdered By: Huber Ballard on 08-27-2024 ALT [Catalytic activity/Vol] 19 U/L <35 [facility] Comment on above: Hemolysis present, R esults could be affected. Serum or plasma albumin rosangela urement (mass/volume)Ordered By: Huber Ballard on 08-27-2024 Albumin [Mass/Vol] 3.3 g/dL Low 3.4-4.8 [facility] Serum or plasma albumin/glob ulin mass ratioOrdered By: Huberyandel Ballard on 08-27-2024 Albumin/Globulin [Mass ratio] 1.0 {ratio} 0.9-2.4 [facility] Serum or plasma alkaline faustino sphatase measurementOrdered By: Huber Ballard on 08-27-2024 ALP [Catalytic activity/Vol] 97 U/L 35-104 [facility] Serum or plasma calcium rosangela urement (mass/volume)Ordered By: Huber Ballard on 08-27-2024 Calcium [Mass/Vol] 8.4 mg/dL 7.6-11.0 [facility] Serum or plasma urea nitroge n measurement (mass/volume)Ordered By: Huber Ballard on 08-27-2024 Urea nitrogen [Mass/Vol] 13 mg/dL 4-19 [facility] Sodium levelOrdered By: Huber Ballard on 08-27-2024 Sodium [Moles/Vol] 136 mmol/L 133-145 [facility] Squamous epithelial cells de tection in urine sediment by light microscopyOrdered By: Huber Ballard on 08-27-2024 Epithelial cells.squamous LM Ql (Urine sed) 0-5 SEEN /hpf 5-10 [facility] Total proteinOrdered By: Huber Ballard on 08-27-2024 Protein [Mass/Vol] 6.6 g/dL 5.9-8.4 [facility] Urine clarityOrdered By: Huber Ballard on 08-27-2024 Clarity (U) Sl Cldy Clear [facility] Urine color determinationOrd ered By: Huber Ballard on 08-27-2024 Color (U) Yellow Yellow [facility] Urine glucose detectionOrder ed By: Huber Ballard on 08-27-2024 Glucose Ql (U) Normal mg/dl Normal [facility] Urine leukocyte esterase det ection by dipstickOrdered By: Huber Ballard on 08-27-2024 Leukocyte esterase Test strip Ql (U) Negative Negative [facility] Urine pHOrdered By: Huber santamaria on 08-27-2024 pH (U) 6.0 [pH] 5.0 - 8.0 [facility] Urine sediment bacteria coun t by microscopy (number/high power field)Ordered By: Huber Ballard on 08-27-2024 Bacteria LM.HPF (Urine sed) [#/Area] RARE /hpf None Seen [facility] Urine sediment yeast count b y microscopy (number/high powered field)Ordered By: Huber Ballard on 08-27-2024 Yeast LM.HPF (Urine sed) [#/Area] 2 /[HPF] None Seen [facility] Urine specific gravity measu rementOrdered By: Huber Ballard on 08-27-2024 Specific gravity (U) [Rel density] 1.015 1.002-1.03 0 [facility] Urine urobilinogen measureme ntOrdered By: Huber Ballard on 08-27-2024 Urobilinogen Ql (U) Normal mg/dl Normal [facility] White blood cell (WBC) count Ordered By: Huber Ballard on 08-27-2024 WBC (Bld) [#/Vol] 6.5 10*3/uL 4.4-11.0 [facility] White blood cell countOrdere d By: Huber Ballard on 08-27-2024 White blood cell count 5-10 SEEN /hpf 0-5 [facility] Absolute lymphocyte countOrd ered By: Harish Luis on 07-15-2024 Lymphocytes Auto (Unsp spec) [#/Vol] 1.65 10*3/uL 0.83-4.51 [facility] Absolute neutrophil countOrd ered By: Harish Luis on 07-15-2024 Neutrophils (Bld) [#/Vol] 4.2 10*3/uL 2.0-7.7 [facility] Anion gap in Serum or Plasma Ordered By: Harish Luis on 07-15-2024 Anion gap [Moles/Vol] 10 mmol/L 5-15 [facility] Automated lymphocyte count a s percentage of total leukocytesOrdered By: Harish Luis on 07-15-2024 Lymphocytes/100 WBC Auto (Unsp spec) 25.3 % 19- [facility] BUN/creatinine ratioOrdered By: Harish Luis on 07-15-2024 Urea nitrogen/Creatinine [Mass ratio] 8.0 mg/mg Low 10-20 [facility] Basophil percentageOrdered B y: Harish Luis on 07-15-2024 Basophils/100 WBC (Bld) 0.6 % 0-1 [facility] Bilirubin, totalOrdered By: Harish Luis on 07-15-2024 Bilirubin [Mass/Vol] 0.25 mg/dL 0.00-1.30 [facility] Brain/Head without Contrasto n 07-15-2024 Brain/Head without Contrast Normal [facility] CBC W/Diff, Automatedon 06-18 Absolute Lymph 1.65 X10 3/uL Normal 0.83-4.51 [facility] Comment on above: Performed By: #### L 506.1001, L500.4050, L500.4100, L100.0100, L501.9520 ####[facility] [address] [place], [address] Absolute Neut 4.2 X10 3/uL Normal 2.0-7.7 [facility] Comment on above: Performed By: #### L 506.1001, L500.4050, L500.4100, L100.0100, [id number] ####[facility] [address] [place], [address] Basophils/100 WBC (Bld) 0.6 % Normal 0-1 [facility] Comment on above: Performed By: #### L 506.1001, L500.4050, L500.4100, L100.0100, [id number] ####[facility] [address] [place], [address] Eosinophils/100 WBC (Bld) 1.8 % Normal 0-5 [facility] Comment on above: Performed By: #### L 506.1001, L500.4050, L500.4100, L100.0100, [id number] ####[facility] [address] [place], [address] Erythrocyte distribution width (RBC) [Ratio] 13.9 % Normal 11.6-14.6 [facility] Comment on above: Performed By: #### L 506.1001, L500.4050, L500.4100, L100.0100, [id number] ####[facility] [address] [place], [address] Hematocrit (Bld) [Volume fraction] 35.2 % Low 37-47 [facility] Comment on above: Performed By: #### L 506.1001, L500.4050, L500.4100, L100.0100, [id number] ####[facility] [address] [place], [address] Hemoglobin (Bld) [Mass/Vol] 11.6 g/dL Low 12.0-15.0 [facility] Comment on above: Performed By: #### L 506.1001, L500.4050, L500.4100, L100.0100, [id number] ####[facility] [address] [place], [address] IG% 0.600 Normal 0.0-0.9 [facility] Comment on above: Result Comment: IG% - Immature Granulocytes (promyelocytes, myelocytes andmetamyelocytes) > 1% indicates that a LEFT SHIFT is Present. Performed By: #### L 506.1001, L500.4050, L500.4100, L100.0100, L501.9520 ####[facility] [address] [place], [address] Lymphocytes/100 WBC (Bld) 25.3 % Normal 19-41 [facility] Comment on above: Performed By: #### L 506.1001, L500.4050, L500.4100, L100.0100, L501.9520 ####[facility] [address] [place], [address] MCH (RBC) [Entitic mass] 32.6 pg High 27.0-32.0 [facility] Comment on above: Performed By: #### L 506.1001, L500.4050, L500.4100, L100.0100, L501.9520 ####[facility] [address] [place], [address] MCHC (RBC) [Mass/Vol] 33.0 g/dL Normal 32-36 [facility] Comment on above: Performed By: #### L 506.1001, L500.4050, L500.4100, L100.0100, L501.9520 ####[facility] [address] [place], [address] MCV (RBC) [Entitic vol] 98.9 fL Normal 81-99 [facility] Comment on above: Performed By: #### L 506.1001, L500.4050, L500.4100, L100.0100, L501.9520 ####[facility] [address] [place], [address] Monocytes/100 WBC (Bld) 6.6 % Normal 0-10 [facility] Comment on above: Performed By: #### L 506.1001, L500.4050, L500.4100, L100.0100, L501.9520 ####[facility] [address] [place], [address] Neutrophils/100 WBC (Bld) 65.1 % Normal 47-70 [facility] Comment on above: Performed By: #### L 506.1001, L500.4050, L500.4100, L100.0100, L501.9520 ####[facility] [address] [place], [address] Nucleated RBC (Bld) [#/Vol] 0 10*3/uL Normal 0-5 [facility] Comment on above: Performed By: #### L 506.1001, L500.4050, L500.4100, L100.0100, L501.9520 ####[facility] [address] [place], [address] Platelet mean volume (Bld) [Entitic vol] 9.5 fL Normal 6.2-12.0 [facility] Comment on above: Performed By: #### L 506.1001, L500.4050, L500.4100, L100.0100, L501.9520 ####[facility] [address] [place], [address] Platelets (Bld) [#/Vol] 415 10*3/uL Normal 150-450 [facility] Comment on above: Performed By: #### L 506.1001, L500.4050, L500.4100, L100.0100, [id number] ####[facility] [address] [place], [address] RBC (Bld) [#/Vol] 3.56 10*6/uL Low 4.2-5.4 [facility] Comment on above: Performed By: #### L 506.1001, L500.4050, L500.4100, L100.0100, [id number] ####[facility] [address] [place], [address] RDW SD 51.2 fl High 35.1-43.9 [facility] Comment on above: Performed By: #### L 506.1001, L500.4050, L500.4100, L100.0100, L501.9520 ####[facility] [address] [place], [address] WBC (Bld) [#/Vol] 6.5 10*3/uL Normal 4.4-11.0 [facility] Comment on above: Performed By: #### L 506.1001, L500.4050, L500.4100, L100.0100, L501.9520 ####[facility] [address] [place], [address] Calculated very low density lipoprotein (VLDL) cholesterol measurementOrdered By: Harish Luis on 07-15-2024 Calculated very low density lipoprotein (VLDL) cholesterol measurement 15 mg/dL 5-40 [facility] Carbon dioxide, total [Moles /volume] in Central venous bloodOrdered By: Harish Luis on 07-15-2024 CO2 [Moles/Vol] 23.6 mmol/L 21.0-32.0 [facility] Chloride assayOrdered By: Levar Luis on 07-15-2024 Chloride [Moles/Vol] 109 mmol/L High 98-108 [facility] Comprehensive Metabolic Prof ilon 07-15-2024 Albumin [Mass/Vol] 3.2 g/dL Low 3.4-4.8 [facility] Comment on above: Performed By: #### L 506.1001, L500.4050, L500.4100, L100.0100, L501.9520 ####[facility] [address] [place], [address] Albumin/Globulin [Mass ratio] 1.0 {ratio} Normal 0.9-2.4 [facility] Comment on above: Performed By: #### L 506.1001, L500.4050, L500.4100, L100.0100, L501.9520 ####[facility] [address] [place], [address] ALK PHOS 100 U/L Normal 35-104 [facility] Comment on above: Performed By: #### L 506.1001, L500.4050, L500.4100, L100.0100, L501.9520 ####[facility] [address] [place], [address] ALT [Catalytic activity/Vol] 10 U/L Normal <=34 [facility] Comment on above: Performed By: #### L 506.1001, L500.4050, L500.4100, L100.0100, L501.9520 ####[facility] [address] [place], [address] AST [Catalytic activity/Vol] 16 U/L Normal <=31 [facility] Comment on above: Performed By: #### L 506.1001, L500.4050, L500.4100, L100.0100, L501.9520 ####[facility] [address] [place], [address] Bilirubin [Mass/Vol] 0.25 mg/dL Normal 0.00-1.30 [facility] Comment on above: Performed By: #### L 506.1001, L500.4050, L500.4100, L100.0100, L501.9520 ####[facility] [address] [place], [address] BUN/CRE 8.0 RATIO Low 10-20 [facility] Comment on above: Performed By: #### L 506.1001, L500.4050, L500.4100, L100.0100, L501.9520 ####[facility] [address] [place], [address] Calcium [Mass/Vol] 8.9 mg/dL Normal 7.6-11.0 [facility] Comment on above: Performed By: #### L 506.1001, L500.4050, L500.4100, L100.0100, L501.9520 ####[facility] [address] [place], [address] Chloride [Moles/Vol] 109 mmol/L High 98-108 [facility] Comment on above: Performed By: #### L 506.1001, L500.4050, L500.4100, L100.0100, L501.9520 ####[facility] [address] [place], [address] CO2 [Moles/Vol] 23.6 mmol/L Normal 21.0-32.0 [facility] Comment on above: Performed By: #### L 506.1001, L500.4050, L500.4100, L100.0100, L501.9520 ####[facility] [address] [place], [address] Creatinine [Mass/Vol] 0.97 mg/dL Normal 0.70-1.20 [facility] Comment on above: Performed By: #### L 506.1001, L500.4050, L500.4100, L100.0100, L501.9520 ####[facility] [address] [place], [address] GAP 10 Normal 5-15 [facility] Comment on above: Performed By: #### L 506.1001, L500.4050, L500.4100, L100.0100, L501.9520 ####[facility] [address] [place], [address] GFR/1.73 sq M.predicted among non-blacks MDRD (S/P/Bld) [Vol rate/Area] 61 mL/min/{1.73_m2} Normal >60 [facility] Comment on above: Result Comment: mL/m in/1.73m2 CKD-EPI Creatinine Equation (2020) Performed By: #### L 506.1001, L500.4050, L500.4100, L100.0100, L501.9520 ####[facility] [address] [place], [address] Globulin (S) [Mass/Vol] 3.1 g/dL Normal 2.2-4.2 [facility] Comment on above: Performed By: #### L 506.1001, L500.4050, L500.4100, L100.0100, L501.9520 ####[facility] [address] [place], [address] Glucose [Mass/Vol] 114 mg/dL High 70-99 [facility] Comment on above: Performed By: #### L 506.1001, L500.4050, L500.4100, L100.0100, L501.9520 ####[facility] [address] [place], [address] Potassium [Moles/Vol] 3.5 mmol/L Normal 3.3-5.1 [facility] Comment on above: Performed By: #### L 506.1001, L500.4050, L500.4100, L100.0100, L501.9520 ####[facility] [address] [place], [address] Sodium [Moles/Vol] 143 mmol/L Normal 133-145 [facility] Comment on above: Performed By: #### L 506.1001, L500.4050, L500.4100, L100.0100, L501.9520 ####[facility] [address] [place], [address] T PROT 6.3 g/dL Normal 5.9-8.4 [facility] Comment on above: Performed By: #### L 506.1001, L500.4050, L500.4100, L100.0100, L501.9520 ####[facility] [address] [place], [address] Urea nitrogen [Mass/Vol] 8 mg/dL Normal 4-19 [facility] Comment on above: Performed By: #### L 506.1001, L500.4050, L500.4100, L100.0100, L501.9520 ####[facility] [address] [place], [address] Eosinophil percentageOrdered By: Harish Luis on 07-15-2024 Eosinophils/100 WBC (Bld) 1.8 % 0-5 [facility] Erythrocyte distribution wid th ratioOrdered By: [facility] on 07-15-2024 Erythrocyte distribution width (RBC) [Ratio] 13.9 % 11.6-14.6 [facility] Erythrocyte distribution wid th standard deviationOrdered By: Harish Toby 07-15-2024 Erythrocyte distribution width (RBC) [Ratio] 51.2 fl High 35.1-43.9 [facility] Glomerular filtration rate ( GFR) estimation/1.73 sq m using serum, plasma, or whole bOrdered By: Harish Luis 07-15-2024 GFR/1.73 sq M.predicted among non-blacks MDRD (S/P/Bld) [Vol rate/Area] 61 mL/min/{1.73_m2} >60 [facility] Comment on above: mL/min/1.73m2 CKD-EP I Creatinine Equation (2020) Hematocrit Auto (Bld) [Volum e fraction]Ordered By: Harish Luis 07-15-2024 Hematocrit (Bld) [Volume fraction] 35.2 % Low 37-47 [facility] Hemoglobin measurementOrdere d By: Harish Luis 07-15-2024 Hemoglobin (Bld) [Mass/Vol] 11.6 g/dL Low 12.0-15.0 [facility] Immature granulocytes/100 WB C Auto (Bld)Ordered By: Harish Luis 07-15-2024 Immature granulocytes/100 WBC (Bld) 0.600 % 0.0-0.9 [facility] Comment on above: IG% - Immature Granu locytes (promyelocytes, myelocytes and metamyelocytes) > 1% indicates that a LEFT SHIFT is Present. Laboratory - Chemistry and C hemistry - challengeOrdered By: Harish Luis 07-15-2024 AST [Catalytic activity/Vol] 16 U/L <32 [facility] Lipid Profileon 07-15-2024 CHOL:HDL 3.13 Normal [facility] Comment on above: Performed By: #### L 506.1001, L500.4050, L500.4100, L100.0100, L501.9520 ####[facility] [address] [place], [place], [address] Cholesterol in VLDL [Mass/Vol] 15 mg/dL Normal 5-40 [facility] Comment on above: Performed By: #### L 506.1001, L500.4050, L500.4100, L100.0100, L501.9520 ####[facility] [address] [place], [address] Lipid ProfileOrdered By: Harish Luis on 07-15-2024 Cholesterol [Mass/Vol] 245 mg/dL High <201 [facility] Comment on above: Result Comment: Chol esterol level, Desirable <200 mg/dLBorderline high cholesterol 200-239 mg/dLHigh cholesterol >=240 mg/dLRecommendations of the NCEP Adult Treatment Panel for thefollowing risk-cutoff thresholds for the [place] Americanpopulation. Performed By: #### L 506.1001, L500.4050, L500.4100, L100.0100, L501.9520 ####[facility] [address] [place], [place], [id number] Cholesterol level, D esirable <200 mg/dLBorderline high cholesterol 200-239 mg/dLHigh cholesterol >=240 mg/dLRecommendations of the NCEP Adult Treatment Panel for the following risk-cutoff thresholds for the [place] population. Cholesterol in HDL [Mass/Vol] 78 mg/dL >40 [facility] Comment on above: Result Comment: Breanna onal Cholesterol Education Program (NCEP) guidelines:<40 mg/dL: Low HDL-cholesterol (major risk factor for CHD)>= 60 mg/dL: High HDL-cholesterol (negative risk factor forCHD)HDL-cholesterol is affected by a number of factors, e.g.smoking, exercise, hormones, sex and age. Performed By: #### L 506.1001, L500.4050, L500.4100, L100.0100, L501.9520 ####[facility] [address] [place], [place], [id number] National Cholesterol Education Program (NCEP) guidelines:<40 mg/dL: Low HDL-cholesterol (major risk factor for CHD)>= 60 mg/dL: High HDL-cholesterol (negative risk factor for CHD)HDL-cholesterol is affected by a number of factors, e.g. smoking, exercise, hormones, sex and age. Cholesterol in LDL [Mass/Vol] 151 mg/dL [facility] Comment on above: Result Comment: Bord rmitmw=647-410 mg/dL Higher Rlsd=700 mg/dL or greater Performed By: #### L 506.1001, L500.4050, L500.4100, L100.0100, L501.9520 ####[facility] [address] [place], [place], [id number] Hyznoxavyq=676-771 m g/dL & Higher Kitg=210 mg/dL or greater Triglyceride [Mass/Vol] 77 mg/dL <199 [facility] Comment on above: Result Comment: The drugs N-Acetylcysteine and Metamizole may falselydepress this assay.Normal range: <150 mg/dLBorderline High: 150-199 mg/dLHigh: 200-499 mg/dLVery High: >500 mg/dL Performed By: #### L 506.1001, L500.4050, L500.4100, L100.0100, L501.9520 ####[facility] [address] [place], [address] The drugs N-Acetylcy steine and Metamizole may falsely depress this assay. Normal range: <150 mg/dLBorderline High: 150-199 mg/dLHigh: 200-499 mg/dLVery High: >500 mg/dL MCV (mean corpuscular volume ) determinationOrdered By: Harish Luis on 07-15-2024 MCV (RBC) [Entitic vol] 98.9 fL 81-99 [facility] Mean corpuscular hemoglobin (MCH) determinationOrdered By: Harish Luis on 07-15-2024 MCH (RBC) [Entitic mass] 32.6 pg High 27.0-32.0 [facility] Mean corpuscular hemoglobin concentration (MCHC) determinationOrdered By: Harish Luis on 07-15-2024 MCHC (RBC) [Mass/Vol] 33.0 g/dL 32-36 [facility] Mean platelet volume determi nationOrdered By: Harish Luis on 07-15-2024 Platelet mean volume (Bld) [Entitic vol] 9.5 fL 6.2-12.0 [facility] Monocyte percentageOrdered B y: Harish Luis on 07-15-2024 Monocytes/100 WBC (Bld) 6.6 % 0-10 [facility] Neutrophil percentageOrdered By: Harish Luis on 07-15-2024 Neutrophils/100 WBC (Bld) 65.1 % 47-70 [facility] Nucleated red blood cell per centageOrdered By: Harish Luis 07-15-2024 Nucleated RBC/100 WBC (Bld) [Ratio] 0 % 0-5 [facility] Platelet countOrdered By: Levar Luis on 07-15-2024 Platelets (Bld) [#/Vol] 415 10*3/uL 150-450 [facility] Potassium measurement (mass/ volume)Ordered By: Harish Luis 07-15-2024 Potassium (Unsp spec) [Mass/Vol] 3.5 mmol/L 3.3-5.1 [facility] RBC Auto (Bld) [#/Vol]Ordere d By: Harish Luis on 07-15-2024 RBC (Bld) [#/Vol] 3.56 10*6/uL Low 4.2-5.4 [facility] Screening total cholesterol/ high density lipoprotein (HDL) cholesterol ratioOrdered By: Harish Luis 07-15-2024 Cholesterol.total/Tamera sterol in HDL [Mass ratio] 3.13 {ratio} [facility] Serum creatinine measurement (mass/volume)Ordered By: Harish Luis on 07-15-2024 Creatinine [Mass/Vol] 0.97 mg/dL 0.70-1.20 [facility] Serum globulin measurementOr dered By: Harish Luis on 07-15-2024 Globulin (S) [Mass/Vol] 3.1 g/dL 2.2-4.2 [facility] Serum glucose measurement (m ass/volume)Ordered By: Harish Luis on 07-15-2024 Glucose [Mass/Vol] 114 mg/dL High 70-99 [facility] Serum or plasma alanine soliz otransferase (ALT) measurementOrdered By: Harish Luis on 07-15-2024 ALT [Catalytic activity/Vol] 10 U/L <35 [facility] Serum or plasma albumin rosangela urement (mass/volume)Ordered By: Harish Luis on 07-15-2024 Albumin [Mass/Vol] 3.2 g/dL Low 3.4-4.8 [facility] Serum or plasma albumin/glob ulin mass ratioOrdered By: Harish Luis 07-15-2024 Albumin/Globulin [Mass ratio] 1.0 {ratio} 0.9-2.4 [facility] Serum or plasma alkaline faustino sphatase measurementOrdered By: Harish Luis 07-15-2024 ALP [Catalytic activity/Vol] 100 U/L 35-104 [facility] Serum or plasma calcium rosangela urement (mass/volume)Ordered By: Harish uLis 07-15-2024 Calcium [Mass/Vol] 8.9 mg/dL 7.6-11.0 [facility] Serum or plasma urea nitroge n measurement (mass/volume)Ordered By: Harish Luis 07-15-2024 Urea nitrogen [Mass/Vol] 8 mg/dL 4-19 [facility] Sodium levelOrdered By: Harish Luis 07-15-2024 Sodium [Moles/Vol] 143 mmol/L 133-145 [facility] TSH DL <= 0.005 mIU/L QnOrde red By: Harish Luis on 07-15-2024 TSH Qn 0.847 uIU/mL 0.300-4.20 0 [facility] Thyroid Stim Hormone (TSH)on 07-15-2024 TSH 0.847 uIU/mL Normal 0.300-4.20 0 [facility] Comment on above: Performed By: #### L 506.1001, L500.4050, L500.4100, L100.0100, L501.9520 ####[facility] [address] [place], [address] Total proteinOrdered By: Harish Luis on 07-15-2024 Protein [Mass/Vol] 6.3 g/dL 5.9-8.4 [facility] Vitamin D,25 Hydroxyon 07-15 Vitamin D 25-OH 46.3 ng/mL Normal 30-100 [facility] Comment on above: Result Comment: Amalia min D StatusDeficiency: <20 ng/mL (50nmol/L)Insufficiency: 20-30 ng/mL (50-75 nmol/L)Sufficiency: 30-100 ng/mL (75-250 nmol/L)Toxicity: >100 ng/mL (>250 nmol/L) Performed By: #### L 506.1001, L500.4050, L500.4100, L100.0100, L501.9520 ####[facility] [address] [place], [address] White blood cell (WBC) count Ordered By: Harish Luis on 07-15-2024 WBC (Bld) [#/Vol] 6.5 10*3/uL 4.4-11.0 [facility] Emergency Department Summary on 06-04-2024 Emergency Department Summary Normal [facility] Shoulder min 2 Viewson 06-04 Shoulder min 2 Views Normal [facility] Urine Cultureon 04-03-2024 [facility] [place] albicans [place] Count 80,000-100,000 Normal [facility] Comment on above: Performed By: #### M 100.2200 ####[facility] [address] [place], [address] Brain/Head without Contrasto n 03-31-2024 Brain/Head without Contrast Normal [facility] Urine cultureOrdered By: Harish Luis on 01-13-2025 Bacteria identified Cx Nom (U) Mary Alice albicans Abnormal [facility] Influenza virus A and B and SARS-CoV-2 (COVID-19) and Respiratory syncytial virus RNAOrdered By: Harish Luis on 02-19-2024 SARS-CoV-2 (COVID-19) RNA ANTIONE+probe Ql (Unsp spec) [facility] M100.678on 02-19-2024 M100.678 Pending SARS-CoV-2 (COVID 19) Negative INFLUENZA A Negative INFLUENZA B Negative RSV PCR Negative Normal [facility] Comment on above: Performed By: #### M 100.678 ####[facility] [address] [place], [address] Vitamin D,25 Hydroxyon 01-09 Vitamin D 25-OH 35.4 ng/mL Normal [facility] Comment on above: Result Comment: Amalia min D 25(OH) Status Range Deficiency <20 ng/mL (50nmol/L) Insufficiency 20 - 30 ng/mL (50 - 75 nmol/L) Sufficiency 30 - 100 ng/mL (75 - 250 nmol/L) Toxicity >100 ng/mL (>250 nmol/L) Performed By: #### L 500.4100, L506.1000, L501.9520, L100.0100, L500.4050 ####[facility] [address] [place], [address] CBC W/Diff, Automatedon 12-18 Absolute Lymph 1.63 X10 3/uL Normal 0.83-4.51 [facility] Comment on above: Performed By: #### L 500.4100, L506.1000, L501.9520, L100.0100, L500.4050 ####[facility] [address] [place], [address] Absolute Neut 4.3 X10 3/uL Normal 2.0-7.7 [facility] Comment on above: Performed By: #### L 500.4100, L506.1000, L501.9520, L100.0100, L500.4050 ####[facility] [address] [place], [address] Basophils/100 WBC (Bld) 0.9 % Normal 0-1 [facility] Comment on above: Performed By: #### L 500.4100, L506.1000, L501.9520, L100.0100, L500.4050 ####[facility] [address] [place], [address] Eosinophils/100 WBC (Bld) 1.4 % Normal 0-5 [facility] Comment on above: Performed By: #### L 500.4100, L506.1000, L501.9520, L100.0100, L500.4050 ####[facility] [address] [place], [address] Erythrocyte distribution width (RBC) [Ratio] 14.9 % High 11.6-14.6 [facility] Comment on above: Performed By: #### L 500.4100, L506.1000, L501.9520, L100.0100, L500.4050 ####[facility] [address] [place], [address] Hematocrit (Bld) [Volume fraction] 36.7 % Low 37-47 [facility] Comment on above: Performed By: #### L 500.4100, L506.1000, L501.9520, L100.0100, L500.4050 ####[facility] [address] [place], [address] Hemoglobin (Bld) [Mass/Vol] 11.5 g/dL Low 12.0-15.0 [facility] Comment on above: Performed By: #### L 500.4100, L506.1000, L501.9520, L100.0100, L500.4050 ####[facility] [address] [place], [address] IG% 0.500 Normal 0.0-0.9 [facility] Comment on above: Result Comment: IG% - Immature Granulocytes (promyelocytes, myelocytes andmetamyelocytes) > 1% indicates that a LEFT SHIFT is Present. Performed By: #### L 500.4100, L506.1000, L501.9520, L100.0100, L500.4050 ####[facility] [address] [place], [address] Lymphocytes/100 WBC (Bld) 25.0 % Normal 19-41 [facility] Comment on above: Performed By: #### L 500.4100, L506.1000, L501.9520, L100.0100, L500.4050 ####[facility] [address] [place], [address] MCH (RBC) [Entitic mass] 30.6 pg Normal 27.0-32.0 [facility] Comment on above: Performed By: #### L 500.4100, L506.1000, L501.9520, L100.0100, L500.4050 ####[facility] [address] [place], [address] MCHC (RBC) [Mass/Vol] 31.3 g/dL Low 32-36 [facility] Comment on above: Performed By: #### L 500.4100, L506.1000, L501.9520, L100.0100, L500.4050 ####[facility] [address] [place], [address] MCV (RBC) [Entitic vol] 97.6 fL Normal 81-99 [facility] Comment on above: Performed By: #### L 500.4100, L506.1000, L501.9520, L100.0100, L500.4050 ####[facility] [address] [place], [address] Monocytes/100 WBC (Bld) 6.1 % Normal 0-10 [facility] Comment on above: Performed By: #### L 500.4100, L506.1000, L501.9520, L100.0100, L500.4050 ####[facility] [address] [place], [address] Neutrophils/100 WBC (Bld) 66.1 % Normal 47-70 [facility] Comment on above: Performed By: #### L 500.4100, L506.1000, L501.9520, L100.0100, L500.4050 ####[facility] [address] [place], [address] Nucleated RBC (Bld) [#/Vol] 0 10*3/uL Normal 0-5 [facility] Comment on above: Performed By: #### L 500.4100, L506.1000, L501.9520, L100.0100, L500.4050 ####[facility] [address] [place], [address] Platelet mean volume (Bld) [Entitic vol] 9.6 fL Normal 6.2-12.0 [facility] Comment on above: Performed By: #### L 500.4100, L506.1000, L501.9520, L100.0100, L500.4050 ####[facility] [address] [place], [address] Platelets (Bld) [#/Vol] 419 10*3/uL Normal 150-450 [facility] Comment on above: Performed By: #### L 500.4100, L506.1000, L501.9520, L100.0100, L500.4050 ####[facility] [address] [place], [address] RBC (Bld) [#/Vol] 3.76 10*6/uL Low 4.2-5.4 [facility] Comment on above: Performed By: #### L 500.4100, L506.1000, L501.9520, L100.0100, L500.4050 ####[facility] [address] [place], [address] RDW SD 53.9 fl High 35.1-43.9 [facility] Comment on above: Performed By: #### L 500.4100, L506.1000, L501.9520, L100.0100, L500.4050 ####[facility] [address] [place], [address] WBC (Bld) [#/Vol] 6.5 10*3/uL Normal 4.4-11.0 [facility] Comment on above: Performed By: #### L 500.4100, L506.1000, L501.9520, L100.0100, L500.4050 ####[facility] [address] [place], [address] Comprehensive Metabolic [facility] 01-09-2024 Albumin [Mass/Vol] 2.7 g/dL Low 3.2-5.0 [facility] Comment on above: Performed By: #### L 500.4100, L506.1000, L501.9520, L100.0100, L500.4050 ####[facility] [address] [place], [address] Albumin/Globulin [Mass ratio] 0.8 {ratio} Low 0.9-2.4 [facility] Comment on above: Performed By: #### L 500.4100, L506.1000, L501.9520, L100.0100, L500.4050 ####[facility] [address] [place], [address] ALK P 90 U/L Normal 45-117 [facility] Comment on above: Performed By: #### L 500.4100, L506.1000, L501.9520, L100.0100, L500.4050 ####[facility] [address] [place], [address] ALT [Catalytic activity/Vol] 13 U/L Normal 13-56 [facility] Comment on above: Performed By: #### L 500.4100, L506.1000, L501.9520, L100.0100, L500.4050 ####[facility] [address] [place], [address] AST [Catalytic activity/Vol] 10 U/L Low 15-37 [facility] Comment on above: Performed By: #### L 500.4100, L506.1000, L501.9520, L100.0100, L500.4050 ####[facility] [address] [place], [address] Bilirubin [Mass/Vol] 0.20 mg/dL Normal 0.20-1.00 [facility] Comment on above: Result Comment: For patients on eltrombopag therapy, use of Dimension Pearsall TBIL is not recommended. Performed By: #### L 500.4100, L506.1000, L501.9520, L100.0100, L500.4050 ####[facility] [address] [place], [address] BUN/CRE 7.7 RATIO Low 10-20 [facility] Comment on above: Performed By: #### L 500.4100, L506.1000, L501.9520, L100.0100, L500.4050 ####[facility] [address] [place], [address] CA,Total 8.7 mg/dL Normal 8.5-10.1 [facility] Comment on above: Performed By: #### L 500.4100, L506.1000, L501.9520, L100.0100, L500.4050 ####[facility] [address] [place], [address] Chloride [Moles/Vol] 114 mmol/L High 98-107 [facility] Comment on above: Performed By: #### L 500.4100, L506.1000, L501.9520, L100.0100, L500.4050 ####[facility] [address] [place], [address] CO2 [Moles/Vol] 24.0 mmol/L Normal 21.0-32.0 [facility] Comment on above: Performed By: #### L 500.4100, L506.1000, L501.9520, L100.0100, L500.4050 ####[facility] [address] [place], [address] Creatinine [Mass/Vol] 0.91 mg/dL Normal 0.55-1.02 [facility] Comment on above: Result Comment: The validity of the calculated GFR GFRAA in patients over70 years has not been determined. Clinical correlation isessential. Performed By: #### L 500.4100, L506.1000, L501.9520, L100.0100, L500.4050 ####[facility] [address] [place], [address] EST GFR - AA 78 mL/min Normal >60 [facility] Comment on above: Result Comment: Afri can [place] GFR Calc Performed By: #### L 500.4100, L506.1000, L501.9520, L100.0100, L500.4050 ####[facility] [address] [place], [address] GAP 5 Normal 5-15 [facility] Comment on above: Performed By: #### L 500.4100, L506.1000, L501.9520, L100.0100, L500.4050 ####[facility] [address] [place], [address] GFR/1.73 sq M.predicted among non-blacks MDRD (S/P/Bld) [Vol rate/Area] 65 mL/min/{1.73_m2} Normal >60 [facility] Comment on above: Result Comment: Non- GFR Calc Performed By: #### L 500.4100, L506.1000, L501.9520, L100.0100, L500.4050 ####[facility] [address] [place], [address] Globulin (S) [Mass/Vol] 3.5 g/dL Normal 2.2-4.2 [facility] Comment on above: Performed By: #### L 500.4100, L506.1000, L501.9520, L100.0100, L500.4050 ####[facility] [address] [place], [address] Glucose [Mass/Vol] 108 mg/dL High 74-106 [facility] Comment on above: Result Comment: Fast ing Glucose result from 100 to 125 mg/dLsuggests IMPAIRED HOMEOSTASIS per A.D.A. criteria. Performed By: #### L 500.4100, L506.1000, L501.9520, L100.0100, L500.4050 ####[facility] [address] [place], [address] Potassium [Moles/Vol] 3.9 mmol/L Normal 3.5-5.1 [facility] Comment on above: Performed By: #### L 500.4100, L506.1000, L501.9520, L100.0100, L500.4050 ####[facility] [address] [place], [address] Sodium [Moles/Vol] 142 mmol/L Normal 136-145 [facility] Comment on above: Performed By: #### L 500.4100, L506.1000, L501.9520, L100.0100, L500.4050 ####[facility] [address] [place], [address] T PROT 6.2 g/dL Low 6.4-8.2 [facility] Comment on above: Performed By: #### L 500.4100, L506.1000, L501.9520, L100.0100, L500.4050 ####[facility] [address] [place], [address] Urea nitrogen [Mass/Vol] 7 mg/dL Normal 7-18 [facility] Comment on above: Performed By: #### L 500.4100, L506.1000, L501.9520, L100.0100, L500.4050 ####[facility] [address] [place], [address] Culture, Blood (WB)on 2023 CUB blood cultures x2, f rom 2 different sites No growth in 5 days. Normal [facility] Comment on above: Performed By: #### M 200.1000 ####[facility] [address] [place], [address] Lipid Profileon 01-09-2024 Cholesterol [Mass/Vol] 285 mg/dL High 200 [facility] Comment on above: Result Comment: <200 mg/dL Desirable 200-240 mg/dL Borderline >240 mg/dL High Risk Performed By: #### L 500.4100, L506.1000, L501.9520, L100.0100, L500.4050 ####[facility] [address] [place], [address] Cholesterol in HDL [Mass/Vol] 75 mg/dL Normal [facility] Comment on above: Result Comment: The drugs N-Acetylcysteine and Metamizole may falselydepress this assay. Reference Range HDL <40 mg/dL Low HDL Cholesterol HDL >or= 60 mg/dL High HDL Cholesterol Performed By: #### L 500.4100, L506.1000, L501.9520, L100.0100, L500.4050 ####[facility] [address] [place], [address] Cholesterol in LDL [Mass/Vol] 191 mg/dL High 0-130 [facility] Comment on above: Performed By: #### L 500.4100, L506.1000, L501.9520, L100.0100, L500.4050 ####[facility] [address] [place], [address] Cholesterol in VLDL [Mass/Vol] 19 mg/dL Normal 5-40 [facility] Comment on above: Performed By: #### L 500.4100, L506.1000, L501.9520, L100.0100, L500.4050 ####[facility] [address] [place], [address] Triglyceride [Mass/Vol] 97 mg/dL Normal [facility] Comment on above: Result Comment: The drugs N-Acetylcysteine and Metamizole may falselydepress this assay.Serum Triglycerides Reference Interval Normal <150 mg/dL Borderline high 150 - 199 mg/dL High 200 - 499 mg/dL Very High > or = 500 mg/dL Performed By: #### L 500.4100, L506.1000, L501.9520, L100.0100, L500.4050 ####[facility] [address] [place], [address] Thyroid Stim Hormone (TSH)on 01-09-2024 TSH 0.729 uIU/mL Normal 0.358-3.74 0 [facility] Comment on above: Performed By: #### L 500.4100, L506.1000, L501.9520, L100.0100, L500.4050 ####[facility] [address] [place], [address] Basic Metabolic Profile (BMP )on 01-04-2024 BUN/CRE 12.0 RATIO Normal -20 [facility] Comment on above: Performed By: #### L 500.2500, L100.0100 ####[facility] [address] [place], [address] CA,Total 8.3 mg/dL Low 8.5-10.1 [facility] Comment on above: Performed By: #### L 500.2500, L100.0100 ####[facility] [address] [place], [address] Chloride [Moles/Vol] 118 mmol/L High 98-107 [facility] Comment on above: Performed By: #### L 500.2500, L100.0100 ####[facility] [address] [place], [address] CO2 [Moles/Vol] 23.0 mmol/L Normal 21.0-32.0 [facility] Comment on above: Performed By: #### L 500.2500, L100.0100 ####[facility] [address] [place], [address] Creatinine [Mass/Vol] 0.75 mg/dL Normal 0.55-1.02 [facility] Comment on above: Result Comment: The validity of the calculated GFR GFRAA in patients over70 years has not been determined. Clinical correlation isessential. Performed By: #### L 500.2500, L100.0100 ####[facility] [address] [place], [address] ECRCL 49.53 ml/min Normal [facility] Comment on above: Performed By: #### L 500.2500, L100.0100 ####[facility] [address] [place], [address] EST GFR - AA 98 mL/min Normal >60 [facility] Comment on above: Result Comment: Afri can [place]er GFR Calc Performed By: #### L 500.2500, L100.0100 ####[facility] [address] [place], [address] GAP 3 Low 5-15 [facility] Comment on above: Performed By: #### L 500.2500, L100.0100 ####[facility] [address] [place], [address] GFR/1.73 sq M.predicted among non-blacks MDRD (S/P/Bld) [Vol rate/Area] 81 mL/min/{1.73_m2} Normal >60 [facility] Comment on above: Result Comment: Non- GFR Calc Performed By: #### L 500.2500, L100.0100 ####[facility] [address] [place], [address] Glucose [Mass/Vol] 83 mg/dL Normal 74-106 [facility] Comment on above: Performed By: #### L 500.2500, L100.0100 ####[facility] [address] [place], [address] Potassium [Moles/Vol] 4.2 mmol/L Normal 3.5-5.1 [facility] Comment on above: Performed By: #### L 500.2500, L100.0100 ####[facility] [address] [place], [address] Sodium [Moles/Vol] 144 mmol/L Normal 136-145 [facility] Comment on above: Performed By: #### L 500.2500, L100.0100 ####[facility] [address] [place], [address] Urea nitrogen [Mass/Vol] 9 mg/dL Normal 7-18 [facility] Comment on above: Performed By: #### L 500.2500, L100.0100 ####[facility] [address] [place], [address] CBC W/Diff, Automatedon 10- Absolute Lymph 1.68 X10 3/uL Normal 0.83-4.51 [facility] Comment on above: Performed By: #### L 500.2500, L100.0100 ####[facility] [address] [place], [address] Absolute Neut 6.7 X10 3/uL Normal 2.0-7.7 [facility] Comment on above: Performed By: #### L 500.2500, L100.0100 ####[facility] [address] [place], [address] Basophils/100 WBC (Bld) 0.4 % Normal 0-1 [facility] Comment on above: Performed By: #### L 500.2500, L100.0100 ####[facility] [address] [place], [address] Eosinophils/100 WBC (Bld) 1.6 % Normal 0-5 [facility] Comment on above: Performed By: #### L 500.2500, L100.0100 ####[facility] [address] [place], [address] Erythrocyte distribution width (RBC) [Ratio] 15.0 % High 11.6-14.6 [facility] Comment on above: Performed By: #### L 500.2500, L100.0100 ####[facility] [address] [place], [address] Hematocrit (Bld) [Volume fraction] 31.2 % Low 37-47 [facility] Comment on above: Performed By: #### L 500.2500, L100.0100 ####[facility] [address] [place], [address] Hemoglobin (Bld) [Mass/Vol] 9.9 g/dL Low 12.0-15.0 [facility] Comment on above: Performed By: #### L 500.2500, L100.0100 ####[facility] [address] [place], [address] IG% 0.300 Normal 0.0-0.9 [facility] Comment on above: Result Comment: IG% - Immature Granulocytes (promyelocytes, myelocytes andmetamyelocytes) > 1% indicates that a LEFT SHIFT is Present. Performed By: #### L 500.2500, L100.0100 ####[facility] [address] [place], [address] Lymphocytes/100 WBC (Bld) 18.4 % Low 19-41 [facility] Comment on above: Performed By: #### L 500.2500, L100.0100 ####[facility] [address] [place], [address] MCH (RBC) [Entitic mass] 30.9 pg Normal 27.0-32.0 [facility] Comment on above: Performed By: #### L 500.2500, L100.0100 ####[facility] [address] [place], [address] MCHC (RBC) [Mass/Vol] 31.7 g/dL Low 32-36 [facility] Comment on above: Performed By: #### L 500.2500, L100.0100 ####[facility] [address] [place], [address] MCV (RBC) [Entitic vol] 97.5 fL Normal 81-99 [facility] Comment on above: Performed By: #### L 500.2500, L100.0100 ####[facility] [address] [place], [address] Monocytes/100 WBC (Bld) 5.9 % Normal 0-10 [facility] Comment on above: Performed By: #### L 500.2500, L100.0100 ####[facility] [address] [place], [address] Neutrophils/100 WBC (Bld) 73.4 % High 47-70 [facility] Comment on above: Performed By: #### L 500.2500, L100.0100 ####[facility] [address] [place], [address] Nucleated RBC (Bld) [#/Vol] 0 10*3/uL Normal 0-5 [facility] Comment on above: Performed By: #### L 500.2500, L100.0100 ####[facility] [address] [place], [address] Platelet mean volume (Bld) [Entitic vol] 9.8 fL Normal 6.2-12.0 [facility] Comment on above: Performed By: #### L 500.2500, L100.0100 ####[facility] [address] [place], [address] Platelets (Bld) [#/Vol] 314 10*3/uL Normal 150-450 [facility] Comment on above: Performed By: #### L 500.2500, L100.0100 ####[facility] [address] [place], [address] RBC (Bld) [#/Vol] 3.20 10*6/uL Low 4.2-5.4 [facility] Comment on above: Performed By: #### L 500.2500, L100.0100 ####[facility] [address] [place], [address] RDW SD 53.7 fl High 35.1-43.9 [facility] Comment on above: Performed By: #### L 500.2500, L100.0100 ####[facility] [address] [place], [address] WBC (Bld) [#/Vol] 9.1 10*3/uL Normal 4.4-11.0 [facility] Comment on above: Performed By: #### L 500.2500, L100.0100 ####[facility] [address] [place], [address] Discharge Instructionon - Discharge Instruction Normal [facility] Modified Barium Swallow Stud yon 01-04-2024 Modified Barium Swallow Study Normal [facility] RESPIRATORY PANEL MOLECULARo n 01-04-2024 RP PANEL Normal [facility] Comment on above: Performed By: #### M 100.638 ####[facility] [address] [place], [address] 12 Lead EKGon 01-03-2024 12 Lead EKG Normal [facility] Basic Metabolic Profile (BMP )on 01-03-2024 BUN/CRE 8.3 RATIO Low 01-05 [facility] Comment on above: Order Comment: 'TROP ' Serial specimen #1, #2 or #3: 1 Performed By: #### L 500.2500, L100.0100, L501.4020 ####[facility] [address] [place], [address] CA,Total 8.5 mg/dL Normal 8.5-10.1 [facility] Comment on above: Order Comment: 'TROP ' Serial specimen #1, #2 or #3: 1 Performed By: #### L 500.2500, L100.0100, L501.4020 ####[facility] [address] [place], [address] Chloride [Moles/Vol] 109 mmol/L High 98-107 [facility] Comment on above: Order Comment: 'TROP ' Serial specimen #1, #2 or #3: 1 Performed By: #### L 500.2500, L100.0100, L501.4020 ####[facility] [address] [place], [address] CO2 [Moles/Vol] 24.0 mmol/L Normal 21.0-32.0 [facility] Comment on above: Order Comment: 'TROP ' Serial specimen #1, #2 or #3: 1 Performed By: #### L 500.2500, L100.0100, L501.4020 ####[facility] [address] [place], [address] Creatinine [Mass/Vol] 0.96 mg/dL Normal 0.55-1.02 [facility] Comment on above: Order Comment: 'TROP ' Serial specimen #1, #2 or #3: 1 Result Comment: The validity of the calculated GFR GFRAA in patients over70 years has not been determined. Clinical correlation isessential. Performed By: #### L 500.2500, L100.0100, L501.4020 ####[facility] [address] [place], [address] ECRCL 39.38 ml/min Normal [facility] Comment on above: Order Comment: 'TROP ' Serial specimen #1, #2 or #3: 1 Performed By: #### L 500.2500, L100.0100, L501.4020 ####[facility] [address] [place], [address] EST GFR - AA 73 mL/min Normal >60 [facility] Comment on above: Order Comment: 'TROP ' Serial specimen #1, #2 or #3: 1 Result Comment: Afri can [place] GFR Calc Performed By: #### L 500.2500, L100.0100, L501.4020 ####[facility] [address] [place], [address] GAP 5 Normal 5-15 [facility] Comment on above: Order Comment: 'TROP ' Serial specimen #1, #2 or #3: 1 Performed By: #### L 500.2500, L100.0100, L501.4020 ####[facility] [address] [place], [address] GFR/1.73 sq M.predicted among non-blacks MDRD (S/P/Bld) [Vol rate/Area] 60 mL/min/{1.73_m2} Normal >60 [facility] Comment on above: Order Comment: 'TROP ' Serial specimen #1, #2 or #3: 1 Result Comment: Non- GFR Calc Performed By: #### L 500.2500, L100.0100, L501.4020 ####[facility] [address] [place], [address] Glucose [Mass/Vol] 114 mg/dL High 74-106 [facility] Comment on above: Order Comment: 'TROP ' Serial specimen #1, #2 or #3: 1 Result Comment: Fast ing Glucose result from 100 to 125 mg/dLsuggests IMPAIRED HOMEOSTASIS per A.D.A. criteria. Performed By: #### L 500.2500, L100.0100, L501.4020 ####[facility] [address] [place], [address] Potassium [Moles/Vol] 3.4 mmol/L Low 3.5-5.1 [facility] Comment on above: Order Comment: 'TROP ' Serial specimen #1, #2 or #3: 1 Performed By: #### L 500.2500, L100.0100, L501.4020 ####[facility] [address] [place], [address] Sodium [Moles/Vol] 138 mmol/L Normal 136-145 [facility] Comment on above: Order Comment: 'TROP ' Serial specimen #1, #2 or #3: 1 Performed By: #### L 500.2500, L100.0100, L501.4020 ####[facility] [address] [place], [address] Urea nitrogen [Mass/Vol] 8 mg/dL Normal 7-18 [facility] Comment on above: Order Comment: 'TROP ' Serial specimen #1, #2 or #3: 1 Performed By: #### L 500.2500, L100.0100, L501.4020 ####[facility] [address] [place], [address] Brain/Head without Contrasto n 01-03-2024 Brain/Head without Contrast Normal [facility] CBC W/Diff, Automatedon 10-1 Absolute Lymph 0.75 X10 3/uL Low 0.83-4.51 [facility] Comment on above: Performed By: #### L 500.2500, L100.0100, L501.4020 ####[facility] [address] [place], [address] Absolute Neut 15.7 X10 3/uL High 2.0-7.7 [facility] Comment on above: Performed By: #### L 500.2500, L100.0100, L501.4020 ####[facility] [address] [place], [address] Basophils/100 WBC (Bld) 0.2 % Normal 0-1 [facility] Comment on above: Performed By: #### L 500.2500, L100.0100, L501.4020 ####[facility] [address] [place], [address] Eosinophils/100 WBC (Bld) 0.1 % Normal 0-5 [facility] Comment on above: Performed By: #### L 500.2500, L100.0100, L501.4020 ####[facility] [address] [place], [address] Erythrocyte distribution width (RBC) [Ratio] 14.6 % Normal 11.6-14.6 [facility] Comment on above: Performed By: #### L 500.2500, L100.0100, L501.4020 ####[facility] [address] [place], [address] Hematocrit (Bld) [Volume fraction] 34.6 % Low 37-47 [facility] Comment on above: Performed By: #### L 500.2500, L100.0100, L501.4020 ####[facility] [address] [place], [address] Hemoglobin (Bld) [Mass/Vol] 11.0 g/dL Low 12.0-15.0 [facility] Comment on above: Performed By: #### L 500.2500, L100.0100, L501.4020 ####[facility] [address] [place], [address] IG% 0.500 Normal 0.0-0.9 [facility] Comment on above: Result Comment: IG% - Immature Granulocytes (promyelocytes, myelocytes andmetamyelocytes) > 1% indicates that a LEFT SHIFT is Present. Performed By: #### L 500.2500, L100.0100, L501.4020 ####[facility] [address] [place], [address] Lymphocytes/100 WBC (Bld) 4.3 % Low 19-41 [facility] Comment on above: Performed By: #### L 500.2500, L100.0100, L501.4020 ####[facility] [address] [place], [address] MCH (RBC) [Entitic mass] 30.5 pg Normal 27.0-32.0 [facility] Comment on above: Performed By: #### L 500.2500, L100.0100, L501.4020 ####[facility] [address] [place], [address] MCHC (RBC) [Mass/Vol] 31.8 g/dL Low 32-36 [facility] Comment on above: Performed By: #### L 500.2500, L100.0100, L501.4020 ####[facility] [address] [place], [address] MCV (RBC) [Entitic vol] 95.8 fL Normal 81-99 [facility] Comment on above: Performed By: #### L 500.2500, L100.0100, L501.4020 ####[facility] [address] [place], [address] Monocytes/100 WBC (Bld) 4.2 % Normal 0-10 [facility] Comment on above: Performed By: #### L 500.2500, L100.0100, L501.4020 ####[facility] [address] [place], [address] Neutrophils/100 WBC (Bld) 90.7 % High 47-70 [facility] Comment on above: Performed By: #### L 500.2500, L100.0100, L501.4020 ####[facility] [address] [place], [address] Nucleated RBC (Bld) [#/Vol] 0 10*3/uL Normal 0-5 [facility] Comment on above: Performed By: #### L 500.2500, L100.0100, L501.4020 ####[facility] [address] [place], [address] Platelet mean volume (Bld) [Entitic vol] 9.9 fL Normal 6.2-12.0 [facility] Comment on above: Performed By: #### L 500.2500, L100.0100, L501.4020 ####[facility] [address] [place], [address] Platelets (Bld) [#/Vol] 321 10*3/uL Normal 150-450 [facility] Comment on above: Performed By: #### L 500.2500, L100.0100, L501.4020 ####[facility] [address] [place], [address] RBC (Bld) [#/Vol] 3.61 10*6/uL Low 4.2-5.4 [facility] Comment on above: Performed By: #### L 500.2500, L100.0100, L501.4020 ####[facility] [address] [place], [address] RDW SD 50.7 fl High 35.1-43.9 [facility] Comment on above: Performed By: #### L 500.2500, L100.0100, L501.4020 ####[facility] [address] [place], [address] WBC (Bld) [#/Vol] 17.3 10*3/uL High 4.4-11.0 [facility] Comment on above: Performed By: #### L 500.2500, L100.0100, L501.4020 ####[facility] [address] [place], [address] Chest 1 View (Portable)on Chest 1 View (Portable) Normal [facility] Emergency Department Summary on 01-03-2024 Emergency Department Summary Normal [facility] H AND P Exam - Hospitaliston 01-03-2024 H&P Exam - Hospitalist Normal [facility] L501.4020on 01-03-2024 TROPONIN-I HS 3 pg/mL Normal 3.0-54.0 [facility] Comment on above: Order Comment: 'TROP ' Serial specimen #1, #2 or #3: 1 Result Comment: Natalia white Note: New Test Units and Gender Specific Reference Ranges. For more information see Policy Stat Procedure [place] High Sensitivity Troponin (TNIH) and attachments. Performed By: #### L 500.2500, L100.0100, L501.4020 ####[facility] [address] [place], [address] Lactic Acidon 01-03-2024 Lactate [Moles/Vol] 1.0 mmol/L Normal 0.4-1.9 [facility] Comment on above: Order Comment: Y Performed By: #### L 503.6003 ####[facility] [address] [place], [address] Legionella Antigen Urineon 1 LEGU Normal [facility] Comment on above: Performed By: #### M 300.4600, M300.4500 ####[facility] [address] [place], [address] M100.019on 01-03-2024 M100.019 Negative Normal [facility] Comment on above: Performed By: #### M 100.019 ####[facility] [address] [place], [address] M100.678on 01-03-2024 M100.678 Pending SARS-CoV-2 (COVID 19) Negative INFLUENZA A Negative INFLUENZA B Negative RSV PCR Negative Normal [facility] Comment on above: Performed By: #### M 100.678, L400.0001 ####[facility] [address] [place], [address] Magnesiumon 01-03-2024 Magnesium [Mass/Vol] 1.9 mg/dL Normal 1.6-2.6 [facility] Comment on above: Performed By: #### L 501.5200 ####[facility] [address] [place], [address] Strep pneumoniae Antig(UR,CS F)on 01-03-2024 STPAG Normal [facility] Comment on above: Performed By: #### M 300.4600, M300.4500 ####[facility] [address] [place], [address] Urinalysis, Completeon 01-02 EPI,RENAL 0-5 SEEN Normal 0-5 [facility] Comment on above: Order Comment: COLLE CTOR TO SPECIFY Performed By: #### M 100.678, L400.0001 ####[facility] [address] [place], [address] RBC 0-5 SEEN Normal 0-5 [facility] Comment on above: Order Comment: COLLE CTOR TO SPECIFY Performed By: #### M 100.678, L400.0001 ####[facility] [address] [place], [address] WBC 25-50 SEEN Normal 0-5 [facility] Comment on above: Order Comment: DUKE CTOR TO SPECIFY Performed By: #### M 100.678, L400.0001 ####[facility] [address] [place], [address] YEAST 1+ /hpf Normal None Seen [facility] Comment on above: Order Comment: DUKE CTOR TO SPECIFY Performed By: #### M 100.678, L400.0001 ####[facility] [address] [place], [address] BACTERIA 4+ /hpf Normal None Seen [facility] Comment on above: Order Comment: DUKE CTOR TO SPECIFY Performed By: #### M 100.678, L400.0001 ####[facility] [address] [place], [address] EPI,SQUAMOUS 0 SEEN Normal 5-10 [facility] Comment on above: Order Comment: DUKE CTOR TO SPECIFY Performed By: #### M 100.678, L400.0001 ####[facility] [address] [place], [address] Mucus Ql (Urine sed) 0 SEEN Normal [facility] Comment on above: Order Comment: DUKE CTOR TO SPECIFY Performed By: #### M 100.678, L400.0001 ####[facility] [address] [place], [address] Miscellaneous Lab Procedureo n 12-18-2023 MISC LAB TEST Normal [facility] Comment on above: Order Comment: [id number] URINE TOX Result Comment: [id number] 6+OXYCODONE-BUND (ng/mL)DRUG RESULT SCREEN CUTOFF____ Amphetamines,Urine Negative ng/mL 1000Amphetamine test includes Amphetamine and Methamphetamine.Barbiturates Negative ng/mL 200Benzodiazepines POSITIVE ng/mL 100Please Note;Confirmation performed by Mass SpectrometryNordiazepam PositiveNordiazepam Conf,MS,UR 190 ng/mL 100Oxazepam Negative 100Flurazepam Negative 100Lorazepam Negative 100Alprazolam Negative 100Clonazepam PositiveClonazepam Conf,MS,UR 497 ng/mL 100Temazepam Negative 100Triazolam Negative 100Midazolam Negative 100Cannabinoid Negative ng/mL 20Cocaine (Metab) Negative ng/mL 300Opiates Negative ng/mL 300 Opiates test includes Codeine, Morphine, Hydromorphone, Hydrocodone.Oxycodone/Oxymorphone,Urine Negative ng/mL 300 Test includes Oxydodone and Oxymorphone. TESTING PERFORMED AT [facility]. ORIGINAL REPORT ON FILE IN LAB CONTAINS ADDITIONAL TEST SITE INFORMATION. Performed By: #### L 801.1541, L801.1543, L505.5000 ####[facility] [address] [place], [place], [address] [facility] Procedure 2on 12-18-2023 [facility] LAB TEST 2 Normal [facility] Comment on above: Order Comment: [id number] TRAMADOL Result Comment: TEST RESULTS LIMITSTramadol, Urine Tramadol Screen, Urine Negative ng/mL [id number] TESTING PERFORMED AT [facility]. ORIGINAL REPORT ON FILE IN LAB CONTAINS ADDITIONAL TEST SITE INFORMATION. Performed By: #### L 801.1541, L801.1543, L505.5000 ####[facility] [address] [place], [address] Urine Drug Screen (VISTA)on 12-12-2023 AMPHETAMINES Negative Normal <1000 ng/mL [facility] Comment on above: Order Comment: MEDTO X Performed By: #### L 801.1541, L801.1543, L505.5000 ####[facility] [address] [place], [address] BARBITIURATES Negative Normal < 200 ng/mL [facility] Comment on above: Order Comment: MEDTO X Performed By: #### L 801.1541, L801.1543, L505.5000 ####[facility] [address] [place], [address] BENZODIAZIPINE Positive Abnormal < 200 ng/mL [facility] Comment on above: Order Comment: MEDTO X Performed By: #### L 801.1541, L801.1543, L505.5000 ####[facility] [address] [place], [address] COCAINE Negative Normal < 300 ng/mL [facility] Comment on above: Order Comment: MEDTO X Performed By: #### L 801.1541, L801.1543, L505.5000 ####[facility] [address] [place], [address] ECSTACY Negative Normal < 500 ng/mL [facility] Comment on above: Order Comment: MEDTO X Performed By: #### L 801.1541, L801.1543, L505.5000 ####[facility] [address] [place], [address] METHADONE Negative Normal < 300 ng/mL [facility] Comment on above: Order Comment: MEDTO X Performed By: #### L 801.1541, L801.1543, L505.5000 ####[facility] [address] [place], [address] OPIATES Negative Normal < 300 ng/mL [facility] Comment on above: Order Comment: MEDTO X Performed By: #### L 801.1541, L801.1543, L505.5000 ####[facility] [address] [place], [address] PCP Negative Normal < 25 ng/mL [facility] Comment on above: Order Comment: MEDTO X Performed By: #### L 801.1541, L801.1543, L505.5000 ####[facility] [address] [place], [address] THC Negative Normal < 50 ng/mL [facility] Comment on above: Order Comment: MEDTO X Performed By: #### L 801.1541, L801.1543, L505.5000 ####[facility] [address] [place], [address] VISTA UDS PH 6 Normal [facility] Comment on above: Order Comment: MEDTO X Performed By: #### L 801.1541, L801.1543, L505.5000 ####[facility] [address] [place], [address] Orthopedic Visit Reporton Orthopedic Visit Report Normal [facility] PT D/C Summary (1)on 024 PT D/C Summary (1) Normal [facility] Orthopedic Visit Reporton Orthopedic Visit Report Normal [facility] Re-Evaluation - PT (1)on Re-Evaluation - PT (1) Normal [facility] Re-Evaluation - PT (1)on Re-Evaluation - PT (1) Normal [facility] Re-Evaluation - PT (1)on Re-Evaluation - PT (1) Normal [facility] Emergency Department Summary on 08-29-2023 Emergency Department Summary Normal [facility] Lumbar Spine 2 or 3 Viewson 08-29-2023 Lumbar Spine 2 or 3 Views Normal [facility] Inital Evaluation (1) - PTon 08-14-2023 Inital Evaluation (1) - PT Normal [facility] Emergency Department Summary on 08-11-2023 Emergency Department Summary Normal [facility] Humerus min 2 Viewson 2023 Humerus min 2 Views Normal [facility] Shoulder min 2 Viewson 08-10 Shoulder min 2 Views Normal [facility] Basic Metabolic Profile (BMP )on 08-08-2023 BUN/CRE 7.6 RATIO Low 10-20 [facility] Comment on above: Performed By: #### L 500.2500 ####[facility] [address] [place], [address] CA,Total 9.1 mg/dL Normal 8.5-10.1 [facility] Comment on above: Performed By: #### L 500.2500 ####[facility] [address] [place], [address] Chloride [Moles/Vol] 109 mmol/L High 98-107 [facility] Comment on above: Performed By: #### L 500.2500 ####[facility] [address] [place], [address] CO2 [Moles/Vol] 26.0 mmol/L Normal 21.0-32.0 [facility] Comment on above: Performed By: #### L 500.2500 ####[facility] [address] [place], [address] Creatinine [Mass/Vol] 0.93 mg/dL Normal 0.55-1.02 [facility] Comment on above: Result Comment: The validity of the calculated GFR GFRAA in patients over70 years has not been determined. Clinical correlation isessential. Performed By: #### L 500.2500 ####[facility] [address] [place], [address] EST GFR - AA 76 mL/min Normal >60 [facility] Comment on above: Result Comment: Afri can [place] GFR Calc Performed By: #### L 500.2500 ####[facility] [address] [place], [address] GAP 6 Normal 5-15 [facility] Comment on above: Performed By: #### L 500.2500 ####[facility] [address] [place], [address] GFR/1.73 sq M.predicted among non-blacks MDRD (S/P/Bld) [Vol rate/Area] 63 mL/min/{1.73_m2} Normal >60 [facility] Comment on above: Result Comment: Non- GFR Calc Performed By: #### L 500.2500 ####[facility] [address] [place], [address] Glucose [Mass/Vol] 98 mg/dL Normal 74-106 [facility] Comment on above: Performed By: #### L 500.2500 ####[facility] [address] [place], [address] Potassium [Moles/Vol] 3.9 mmol/L Normal 3.5-5.1 [facility] Comment on above: Performed By: #### L 500.2500 ####[facility] [address] [place], [address] Sodium [Moles/Vol] 141 mmol/L Normal 136-145 [facility] Comment on above: Performed By: #### L 500.2500 ####[facility] [address] [place], [address] Urea nitrogen [Mass/Vol] 7 mg/dL Normal 7-18 [facility] Comment on above: Performed By: #### L 500.2500 ####[facility] [address] [place], [address] BUN Normal 7-18 [facility] Comment on above: Result Comment: Canc elled via OM: Order cancelled - Patient discharged Performed By: #### L 100.0100, L500.2500 ####[facility] [address] [place], [address] BUN/CRE Normal 10-20 [facility] Comment on above: Result Comment: Canc elled via OM: Order cancelled - Patient discharged Performed By: #### L 100.0100, L500.2500 ####[facility] [address] [place], [address] CA,Total Normal 8.5-10.1 [facility] Comment on above: Result Comment: Canc elled via OM: Order cancelled - Patient discharged Performed By: #### L 100.0100, L500.2500 ####[facility] [address] [place], [address] CL Normal 98-107 [facility] Comment on above: Result Comment: Canc elled via OM: Order cancelled - Patient discharged Performed By: #### L 100.0100, L500.2500 ####[facility] [address] [place], [address] CO2 Normal 21.0-32.0 [facility] Comment on above: Result Comment: Canc elled via OM: Order cancelled - Patient discharged Performed By: #### L 100.0100, L500.2500 ####[facility] [address] [place], [address] CREAT,SERUM Normal 0.55-1.02 [facility] Comment on above: Result Comment: Canc elled via OM: Order cancelled - Patient discharged Performed By: #### L 100.0100, L500.2500 ####[facility] [address] [place], [address] EST GFR Normal >60 [facility] Comment on above: Result Comment: Canc elled via OM: Order cancelled - Patient discharged Performed By: #### L 100.0100, L500.2500 ####[facility] [address] [place], [address] EST GFR - AA Normal >60 [facility] Comment on above: Result Comment: Canc elled via OM: Order cancelled - Patient discharged Performed By: #### L 100.0100, L500.2500 ####[facility] [address] [place], [address] GAP Normal 5-15 [facility] Comment on above: Result Comment: Canc elled via OM: Order cancelled - Patient discharged Performed By: #### L 100.0100, L500.2500 ####[facility] [address] [place], [address] GLU Normal 74-106 [facility] Comment on above: Result Comment: Canc elled via OM: Order cancelled - Patient discharged Performed By: #### L 100.0100, L500.2500 ####[facility] [address] [place], [address] Potassium Normal 3.5-5.1 [facility] Comment on above: Result Comment: Canc elled via OM: Order cancelled - Patient discharged Performed By: #### L 100.0100, L500.2500 ####[facility] [address] [place], [address] Basic Metabolic Profile (BMP) Normal 136-145 [facility] Comment on above: Result Comment: Canc elled via OM: Order cancelled - Patient discharged Performed By: #### L 100.0100, L500.2500 ####[facility] [address] [place], [address] CBC W/Diff, Automatedon 05-2 Absolute Neut Normal 2.0-7.7 [facility] Comment on above: Result Comment: Canc elled via OM: Order cancelled - Patient discharged Performed By: #### L 100.0100, L500.2500 ####[facility] [address] [place], [address] HCT Normal 37-47 [facility] Comment on above: Result Comment: Canc elled via OM: Order cancelled - Patient discharged Performed By: #### L 100.0100, L500.2500 ####[facility] [address] [place], [address] HGB Normal 12.0-15.0 [facility] Comment on above: Result Comment: Canc elled via OM: Order cancelled - Patient discharged Performed By: #### L 100.0100, L500.2500 ####[facility] [address] [place], [address] MCH Normal 27.0-32.0 [facility] Comment on above: Result Comment: Canc elled via OM: Order cancelled - Patient discharged Performed By: #### L 100.0100, L500.2500 ####[facility] [address] [place], [address] MCHC Normal 32-36 [facility] Comment on above: Result Comment: Canc elled via OM: Order cancelled - Patient discharged Performed By: #### L 100.0100, L500.2500 ####[facility] [address] [place], [address] MCV Normal 81-99 [facility] Comment on above: Result Comment: Canc elled via OM: Order cancelled - Patient discharged Performed By: #### L 100.0100, L500.2500 ####[facility] [address] [place], [address] NEUT% Normal 47-70 [facility] Comment on above: Result Comment: Canc elled via OM: Order cancelled - Patient discharged Performed By: #### L 100.0100, L500.2500 ####[facility] [address] [place], [address] PLT Normal 150-450 [facility] Comment on above: Result Comment: Canc elled via OM: Order cancelled - Patient discharged Performed By: #### L 100.0100, L500.2500 ####[facility] [address] [place], [address] RBC Normal 4.2-5.4 [facility] Comment on above: Result Comment: Canc elled via OM: Order cancelled - Patient discharged Performed By: #### L 100.0100, L500.2500 ####[facility] [address] [place], [address] RDW CV Normal 11.6-14.6 [facility] Comment on above: Result Comment: Canc elled via OM: Order cancelled - Patient discharged Performed By: #### L 100.0100, L500.2500 ####[facility] [address] [place], [address] RDW SD Normal 35.1-43.9 [facility] Comment on above: Result Comment: Canc elled via OM: Order cancelled - Patient discharged Performed By: #### L 100.0100, L500.2500 ####[facility] [address] [place], [address] WBC Normal 4.4-11.0 [facility] Comment on above: Result Comment: Canc elled via OM: Order cancelled - Patient discharged Performed By: #### L 100.0100, L500.2500 ####[facility] [address] [place], [address] Basic Metabolic Profile (BMP )on 08-07-2023 BUN Normal 7-18 [facility] Comment on above: Result Comment: Canc elled via OM: Order cancelled - Patient discharged Performed By: #### L 500.2500, L100.0100 ####[facility] [address] [place], [address] BUN/CRE Normal 10-20 [facility] Comment on above: Result Comment: Canc elled via OM: Order cancelled - Patient discharged Performed By: #### L 500.2500, L100.0100 ####[facility] [address] [place], [address] CA,Total Normal 8.5-10.1 [facility] Comment on above: Result Comment: Canc elled via OM: Order cancelled - Patient discharged Performed By: #### L 500.2500, L100.0100 ####[facility] [address] [place], [address] CL Normal 98-107 [facility] Comment on above: Result Comment: Canc elled via OM: Order cancelled - Patient discharged Performed By: #### L 500.2500, L100.0100 ####[facility] [address] [place], [address] CO2 Normal 21.0-32.0 [facility] Comment on above: Result Comment: Canc elled via OM: Order cancelled - Patient discharged Performed By: #### L 500.2500, L100.0100 ####[facility] [address] [place], [address] CREAT,SERUM Normal 0.55-1.02 [facility] Comment on above: Result Comment: Canc elled via OM: Order cancelled - Patient discharged Performed By: #### L 500.2500, L100.0100 ####[facility] [address] [place], [address] EST GFR Normal >60 [facility] Comment on above: Result Comment: Canc elled via OM: Order cancelled - Patient discharged Performed By: #### L 500.2500, L100.0100 ####[facility] [address] [place], [address] EST GFR - AA Normal >60 [facility] Comment on above: Result Comment: Canc elled via OM: Order cancelled - Patient discharged Performed By: #### L 500.2500, L100.0100 ####[facility] [address] [place], [address] GAP Normal 5-15 [facility] Comment on above: Result Comment: Canc elled via OM: Order cancelled - Patient discharged Performed By: #### L 500.2500, L100.0100 ####[facility] [address] [place], [address] GLU Normal 74-106 [facility] Comment on above: Result Comment: Canc elled via OM: Order cancelled - Patient discharged Performed By: #### L 500.2500, L100.0100 ####[facility] [address] [place], [address] Potassium Normal 3.5-5.1 [facility] Comment on above: Result Comment: Canc elled via OM: Order cancelled - Patient discharged Performed By: #### L 500.2500, L100.0100 ####[facility] [address] [place], [address] Basic Metabolic Profile (BMP) Normal 136-145 [facility] Comment on above: Result Comment: Canc elled via OM: Order cancelled - Patient discharged Performed By: #### L 500.2500, L100.0100 ####[facility] [address] [place], [address] CBC W/Diff, Automatedon 05-2 Absolute Neut Normal 2.0-7.7 [facility] Comment on above: Result Comment: Canc elled via OM: Order cancelled - Patient discharged Performed By: #### L 500.2500, L100.0100 ####[facility] [address] [place], [address] HCT Normal 37-47 [facility] Comment on above: Result Comment: Canc elled via OM: Order cancelled - Patient discharged Performed By: #### L 500.2500, L100.0100 ####[facility] [address] [place], [address] HGB Normal 12.0-15.0 [facility] Comment on above: Result Comment: Canc elled via OM: Order cancelled - Patient discharged Performed By: #### L 500.2500, L100.0100 ####[facility] [address] [place], [address] MCH Normal 27.0-32.0 [facility] Comment on above: Result Comment: Canc elled via OM: Order cancelled - Patient discharged Performed By: #### L 500.2500, L100.0100 ####[facility] [address] [place], [address] MCHC Normal 32-36 [facility] Comment on above: Result Comment: Canc elled via OM: Order cancelled - Patient discharged Performed By: #### L 500.2500, L100.0100 ####[facility] [address] [place], [address] MCV Normal 81-99 [facility] Comment on above: Result Comment: Canc elled via OM: Order cancelled - Patient discharged Performed By: #### L 500.2500, L100.0100 ####[facility] [address] [place], [address] NEUT% Normal 47-70 [facility] Comment on above: Result Comment: Canc elled via OM: Order cancelled - Patient discharged Performed By: #### L 500.2500, L100.0100 ####[facility] [address] [place], [address] PLT Normal 150-450 [facility] Comment on above: Result Comment: Canc elled via OM: Order cancelled - Patient discharged Performed By: #### L 500.2500, L100.0100 ####[facility] [address] [place], [address] RBC Normal 4.2-5.4 [facility] Comment on above: Result Comment: Canc elled via OM: Order cancelled - Patient discharged Performed By: #### L 500.2500, L100.0100 ####[facility] [address] [place], [address] RDW CV Normal 11.6-14.6 [facility] Comment on above: Result Comment: Canc elled via OM: Order cancelled - Patient discharged Performed By: #### L 500.2500, L100.0100 ####[facility] [address] [place], [address] RDW SD Normal 35.1-43.9 [facility] Comment on above: Result Comment: Canc elled via OM: Order cancelled - Patient discharged Performed By: #### L 500.2500, L100.0100 ####[facility] [address] [place], [address] WBC Normal 4.4-11.0 [facility] Comment on above: Result Comment: Canc elled via OM: Order cancelled - Patient discharged Performed By: #### L 500.2500, L100.0100 ####[facility] [address] [place], [address] Basic Metabolic Profile (BMP )on 08-06-2023 BUN Normal 7-18 [facility] Comment on above: Result Comment: Canc elled via OM: Order cancelled - Patient discharged Performed By: #### L 500.2500, L100.0100 ####[facility] [address] [place], [address] BUN/CRE Normal 10-20 [facility] Comment on above: Result Comment: Canc elled via OM: Order cancelled - Patient discharged Performed By: #### L 500.2500, L100.0100 ####[facility] [address] [place], [address] CA,Total Normal 8.5-10.1 [facility] Comment on above: Result Comment: Canc elled via OM: Order cancelled - Patient discharged Performed By: #### L 500.2500, L100.0100 ####[facility] [address] [place], [address] CL Normal 98-107 [facility] Comment on above: Result Comment: Canc elled via OM: Order cancelled - Patient discharged Performed By: #### L 500.2500, L100.0100 ####[facility] [address] [place], [address] CO2 Normal 21.0-32.0 [facility] Comment on above: Result Comment: Canc elled via OM: Order cancelled - Patient discharged Performed By: #### L 500.2500, L100.0100 ####[facility] [address] [place], [address] CREAT,SERUM Normal 0.55-1.02 [facility] Comment on above: Result Comment: Canc elled via OM: Order cancelled - Patient discharged Performed By: #### L 500.2500, L100.0100 ####[facility] [address] [place], [address] EST GFR Normal >60 [facility] Comment on above: Result Comment: Canc elled via OM: Order cancelled - Patient discharged Performed By: #### L 500.2500, L100.0100 ####[facility] [address] [place], [address] EST GFR - AA Normal >60 [facility] Comment on above: Result Comment: Canc elled via OM: Order cancelled - Patient discharged Performed By: #### L 500.2500, L100.0100 ####[facility] [address] [place], [address] GAP Normal 5-15 [facility] Comment on above: Result Comment: Canc elled via OM: Order cancelled - Patient discharged Performed By: #### L 500.2500, L100.0100 ####[facility] [address] [place], [address] GLU Normal 74-106 [facility] Comment on above: Result Comment: Canc elled via OM: Order cancelled - Patient discharged Performed By: #### L 500.2500, L100.0100 ####[facility] [address] [place], [address] Potassium Normal 3.5-5.1 [facility] Comment on above: Result Comment: Canc elled via OM: Order cancelled - Patient discharged Performed By: #### L 500.2500, L100.0100 ####[facility] [address] [place], [address] Basic Metabolic Profile (BMP) Normal 136-145 [facility] Comment on above: Result Comment: Canc elled via OM: Order cancelled - Patient discharged Performed By: #### L 500.2500, L100.0100 ####[facility] [address] [place], [address] CBC W/Diff, Automatedon 05-2 0-4 Absolute Neut Normal 2.0-7.7 [facility] Comment on above: Result Comment: Canc elled via OM: Order cancelled - Patient discharged Performed By: #### L 500.2500, L100.0100 ####[facility] [address] [place], [address] HCT Normal 37-47 [facility] Comment on above: Result Comment: Canc elled via OM: Order cancelled - Patient discharged Performed By: #### L 500.2500, L100.0100 ####[facility] [address] [place], [address] HGB Normal 12.0-15.0 [facility] [facility] Comment on above: Result Comment: Canc elled via OM: Order cancelled - Patient discharged Performed By: #### L 500.2500, L100.0100 ####[facility] [address] [place], [address] MCH Normal 27.0-32.0 [facility] Comment on above: Result Comment: Canc elled via OM: Order cancelled - Patient discharged Performed By: #### L 500.2500, L100.0100 ####[facility] [address] [place], [address] MCHC Normal 32-36 [facility] Comment on above: Result Comment: Canc elled via OM: Order cancelled - Patient discharged Performed By: #### L 500.2500, L100.0100 ####[facility] [address] [place], [address] MCV Normal 81-99 [facility] Comment on above: Result Comment: Canc elled via OM: Order cancelled - Patient discharged Performed By: #### L 500.2500, L100.0100 ####[facility] [address] [place], [address] NEUT% Normal 47-70 [facility] Comment on above: Result Comment: Canc elled via OM: Order cancelled - Patient discharged Performed By: #### L 500.2500, L100.0100 ####[facility] [address] [place], [address] PLT Normal 150-450 [facility] Comment on above: Result Comment: Canc elled via OM: Order cancelled - Patient discharged Performed By: #### L 500.2500, L100.0100 ####[facility] [address] [place], [address] RBC Normal 4.2-5.4 [facility] Comment on above: Result Comment: Canc elled via OM: Order cancelled - Patient discharged Performed By: #### L 500.2500, L100.0100 ####[facility] [address] [place], [address] RDW CV Normal 11.6-14.6 [facility] Comment on above: Result Comment: Canc elled via OM: Order cancelled - Patient discharged Performed By: #### L 500.2500, L100.0100 ####[facility] [address] [place], [address] RDW SD Normal 35.1-43.9 [facility] Comment on above: Result Comment: Canc elled via OM: Order cancelled - Patient discharged Performed By: #### L 500.2500, L100.0100 ####[facility] [address] [place], [address] WBC Normal 4.4-11.0 [facility] Comment on above: Result Comment: Canc elled via OM: Order cancelled - Patient discharged Performed By: #### L 500.2500, L100.0100 ####[facility] [address] [place], [address] Orthopedic Visit Reporton Orthopedic Visit Report Normal [facility] Basic Metabolic Profile (BMP )on 08-05-2023 BUN Normal 7-18 [facility] Comment on above: Result Comment: Canc elled via OM: Order cancelled - Patient discharged Performed By: #### L 100.0100, L500.2500 ####[facility] [address] [place], [address] BUN/CRE Normal 10-20 [facility] Comment on above: Result Comment: Canc elled via OM: Order cancelled - Patient discharged Performed By: #### L 100.0100, L500.2500 ####[facility] [address] [place], [address] CA,Total Normal 8.5-10.1 [facility] Comment on above: Result Comment: Canc elled via OM: Order cancelled - Patient discharged Performed By: #### L 100.0100, L500.2500 ####[facility] [address] [place], [address] CL Normal 98-107 [facility] Comment on above: Result Comment: Canc elled via OM: Order cancelled - Patient discharged Performed By: #### L 100.0100, L500.2500 ####[facility] [address] [facility] [address] CO2 Normal 21.0-32.0 [facility] Comment on above: Result Comment: Canc elled via OM: Order cancelled - Patient discharged Performed By: #### L 100.0100, L500.2500 ####[facility] [address] [place], [address] CREAT,SERUM Normal 0.55-1.02 [facility] Comment on above: Result Comment: Canc elled via OM: Order cancelled - Patient discharged Performed By: #### L 100.0100, L500.2500 ####[facility] [address] [place], [address] EST GFR Normal >60 [facility] Comment on above: Result Comment: Canc elled via OM: Order cancelled - Patient discharged Performed By: #### L 100.0100, L500.2500 ####[facility] [address] [place], [address] EST GFR - AA Normal >60 [facility] Comment on above: Result Comment: Canc elled via OM: Order cancelled - Patient discharged Performed By: #### L 100.0100, L500.2500 ####[facility] [address] [place], [address] GAP Normal 5-15 [facility] Comment on above: Result Comment: Canc elled via OM: Order cancelled - Patient discharged Performed By: #### L 100.0100, L500.2500 ####[facility] [address] [place], [address] GLU Normal 74-106 [facility] Comment on above: Result Comment: Canc elled via OM: Order cancelled - Patient discharged Performed By: #### L 100.0100, L500.2500 ####[facility] [address] [place], [address] Potassium Normal 3.5-5.1 [facility] Comment on above: Result Comment: Canc elled via OM: Order cancelled - Patient discharged Performed By: #### L 100.0100, L500.2500 ####[facility] [address] [place], [address] Basic Metabolic Profile (BMP) Normal 136-145 [facility] Comment on above: Result Comment: Canc elled via OM: Order cancelled - Patient discharged Performed By: #### L 100.0100, L500.2500 ####[facility] [address] [place], [address] CBC W/Diff, Automatedon 05-1 Absolute Neut Normal 2.0-7.7 [facility] Comment on above: Result Comment: Canc elled via OM: Order cancelled - Patient discharged Performed By: #### L 100.0100, L500.2500 ####[facility] [address] [place], [address] HCT Normal 37-47 [facility] Comment on above: Result Comment: Canc elled via OM: Order cancelled - Patient discharged Performed By: #### L 100.0100, L500.2500 ####[facility] [address] [place], [address] HGB Normal 12.0-15.0 [facility] Comment on above: Result Comment: Canc elled via OM: Order cancelled - Patient discharged Performed By: #### L 100.0100, L500.2500 ####[facility] [address] [place], [address] MCH Normal 27.0-32.0 [facility] Comment on above: Result Comment: Canc elled via OM: Order cancelled - Patient discharged Performed By: #### L 100.0100, L500.2500 ####[facility] [address] [place], [address] MCHC Normal 32-36 [facility] Comment on above: Result Comment: Canc elled via OM: Order cancelled - Patient discharged Performed By: #### L 100.0100, L500.2500 ####[facility] [address] [place], [address] MCV Normal 81-99 [facility] Comment on above: Result Comment: Canc elled via OM: Order cancelled - Patient discharged Performed By: #### L 100.0100, L500.2500 ####[facility] [address] [place], [address] NEUT% Normal 47-70 [facility] Comment on above: Result Comment: Canc elled via OM: Order cancelled - Patient discharged Performed By: #### L 100.0100, L500.2500 ####[facility] [address] [place], [address] PLT Normal 150-450 [facility] Comment on above: Result Comment: Canc elled via OM: Order cancelled - Patient discharged Performed By: #### L 100.0100, L500.2500 ####[facility] [address] [place], [address] RBC Normal 4.2-5.4 [facility] Comment on above: Result Comment: Canc elled via OM: Order cancelled - Patient discharged Performed By: #### L 100.0100, L500.2500 ####[facility] [address] [place], [address] RDW CV Normal 11.6-14.6 [facility] Comment on above: Result Comment: Canc elled via OM: Order cancelled - Patient discharged Performed By: #### L 100.0100, L500.2500 ####[facility] [address] [place], [address] RDW SD Normal 35.1-43.9 [facility] Comment on above: Result Comment: Canc elled via OM: Order cancelled - Patient discharged Performed By: #### L 100.0100, L500.2500 ####[facility] [address] [place], [address] WBC Normal 4.4-11.0 [facility] Comment on above: Result Comment: Canc elled via OM: Order cancelled - Patient discharged Performed By: #### L 100.0100, L500.2500 ####[facility] [address] [place], [address] Basic Metabolic Profile (BMP )on 08-04-2023 BUN/CRE 10.2 RATIO Normal 10-20 [facility] Comment on above: Performed By: #### L 500.2500, L100.0100 ####[facility] [address] [place], [address] CA,Total 9.1 mg/dL Normal 8.5-10.1 [facility] Comment on above: Performed By: #### L 500.2500, L100.0100 ####[facility] [address] [place], [address] Chloride [Moles/Vol] 111 mmol/L High 98-107 [facility] Comment on above: Performed By: #### L 500.2500, L100.0100 ####[facility] [address] [place], [address] CO2 [Moles/Vol] 27.0 mmol/L Normal 21.0-32.0 [facility] Comment on above: Performed By: #### L 500.2500, L100.0100 ####[facility] [address] [place], [address] Creatinine [Mass/Vol] 0.69 mg/dL Normal 0.55-1.02 [facility] Comment on above: Result Comment: The validity of the calculated GFR GFRAA in patients over70 years has not been determined. Clinical correlation isessential. Performed By: #### L 500.2500, L100.0100 ####[facility] [address] [place], [address] ECRCL 47.26 ml/min Normal [facility] Comment on above: Performed By: #### L 500.2500, L100.0100 ####[facility] [address] [place], [address] EST GFR - AA 108 mL/min Normal >60 [facility] Comment on above: Result Comment: Afri can [place] GFR Calc Performed By: #### L 500.2500, L100.0100 ####[facility] [address] [place], [address] GAP 4 Low 5-15 [facility] Comment on above: Performed By: #### L 500.2500, L100.0100 ####[facility] [address] [place], [address] GFR/1.73 sq M.predicted among non-blacks MDRD (S/P/Bld) [Vol rate/Area] 89 mL/min/{1.73_m2} Normal >60 [facility] Comment on above: Result Comment: Non- GFR Calc Performed By: #### L 500.2500, L100.0100 ####[facility] [address] [place], [address] Glucose [Mass/Vol] 117 mg/dL High 74-106 [facility] Comment on above: Result Comment: Fast ing Glucose result from 100 to 125 mg/dLsuggests IMPAIRED HOMEOSTASIS per A.D.A. criteria. Performed By: #### L 500.2500, L100.0100 ####[facility] [address] [place], [address] Potassium [Moles/Vol] 3.7 mmol/L Normal 3.5-5.1 [facility] Comment on above: Performed By: #### L 500.2500, L100.0100 ####[facility] [address] [place], [address] Sodium [Moles/Vol] 142 mmol/L Normal 136-145 [facility] Comment on above: Performed By: #### L 500.2500, L100.0100 ####[facility] [address] [place], [address] Urea nitrogen [Mass/Vol] 7 mg/dL Normal 7-18 [facility] Comment on above: Performed By: #### L 500.2500, L100.0100 ####[facility] [address] [place], [address] CBC W/Diff, Automatedon 05 Absolute Lymph 1.85 X10 3/uL Normal 0.83-4.51 [facility] Comment on above: Performed By: #### L 500.2500, L100.0100 ####[facility] [address] [place], [address] Absolute Neut 4.1 X10 3/uL Normal 2.0-7.7 [facility] Comment on above: Performed By: #### L 500.2500, L100.0100 ####[facility] [address] [place], [address] Basophils/100 WBC (Bld) 1.3 % High 0-1 [facility] Comment on above: Performed By: #### L 500.2500, L100.0100 ####[facility] [address] [place], [address] Eosinophils/100 WBC (Bld) 4.0 % Normal 0-5 [facility] Comment on above: Performed By: #### L 500.2500, L100.0100 ####[facility] [address] [place], [address] Erythrocyte distribution width (RBC) [Ratio] 13.4 % Normal 11.6-14.6 [facility] Comment on above: Performed By: #### L 500.2500, L100.0100 ####[facility] [address] [place], [address] Hematocrit (Bld) [Volume fraction] 37.7 % Normal 37-47 [facility] Comment on above: Performed By: #### L 500.2500, L100.0100 ####[facility] [address] [place], [address] Hemoglobin (Bld) [Mass/Vol] 11.7 g/dL Low 12.0-15.0 [facility] Comment on above: Performed By: #### L 500.2500, L100.0100 ####[facility] [address] [place], [address] IG% 2.000 High 0.0-0.9 [facility] Comment on above: Result Comment: IG% - Immature Granulocytes (promyelocytes, myelocytes andmetamyelocytes) > 1% indicates that a LEFT SHIFT is Present. Performed By: #### L 500.2500, L100.0100 ####[facility] [address] [place], [address] Lymphocytes/100 WBC (Bld) 26.5 % Normal 19-41 [facility] Comment on above: Performed By: #### L 500.2500, L100.0100 ####[facility] [address] [place], [address] MCH (RBC) [Entitic mass] 30.2 pg Normal 27.0-32.0 [facility] Comment on above: Performed By: #### L 500.2500, L100.0100 ####[facility] [address] [place], [address] MCHC (RBC) [Mass/Vol] 31.0 g/dL Low 32-36 [facility] Comment on above: Performed By: #### L 500.2500, L100.0100 ####[facility] [address] [place], [address] MCV (RBC) [Entitic vol] 97.4 fL Normal 81-99 [facility] Comment on above: Performed By: #### L 500.2500, L100.0100 ####[facility] [address] [place], [address] Monocytes/100 WBC (Bld) 7.9 % Normal 0-10 [facility] Comment on above: Performed By: #### L 500.2500, L100.0100 ####[facility] [address] [place], [address] Neutrophils/100 WBC (Bld) 58.3 % Normal 47-70 [facility] Comment on above: Performed By: #### L 500.2500, L100.0100 ####[facility] [address] [place], [address] Nucleated RBC (Bld) [#/Vol] 0 10*3/uL Normal 0-5 [facility] Comment on above: Performed By: #### L 500.2500, L100.0100 ####[facility] [address] [place], [address] Platelet mean volume (Bld) [Entitic vol] 9.5 fL Normal 6.2-12.0 [facility] Comment on above: Performed By: #### L 500.2500, L100.0100 ####[facility] [address] [place], [address] Platelets (Bld) [#/Vol] 420 10*3/uL Normal 150-450 [facility] Comment on above: Performed By: #### L 500.2500, L100.0100 ####[facility] [address] [place], [address] RBC (Bld) [#/Vol] 3.87 10*6/uL Low 4.2-5.4 [facility] Comment on above: Performed By: #### L 500.2500, L100.0100 ####[facility] [address] [place], [address] RDW SD 47.8 fl High 35.1-43.9 [facility] Comment on above: Performed By: #### L 500.2500, L100.0100 ####[facility] [address] [place], [address] WBC (Bld) [#/Vol] 7.0 10*3/uL Normal 4.4-11.0 [facility] Comment on above: Performed By: #### L 500.2500, L100.0100 ####[facility] [address] [place], [address] Discharge Instructionon 07-17 Discharge Instruction Normal [facility] Basic Metabolic Profile (BMP )on 08-03-2023 BUN/CRE 9.8 RATIO Low 10-20 [facility] Comment on above: Performed By: #### L 100.0100, L500.2500 ####[facility] [address] [place], [address] CA,Total 8.7 mg/dL Normal 8.5-10.1 [facility] Comment on above: Performed By: #### L 100.0100, L500.2500 ####[facility] [address] [place], [address] Chloride [Moles/Vol] 114 mmol/L High 98-107 [facility] Comment on above: Performed By: #### L 100.0100, L500.2500 ####[facility] [address] [place], [address] CO2 [Moles/Vol] 24.0 mmol/L Normal 21.0-32.0 [facility] Comment on above: Performed By: #### L 100.0100, L500.2500 ####[facility] [address] [place], [address] Creatinine [Mass/Vol] 0.72 mg/dL Normal 0.55-1.02 [facility] Comment on above: Result Comment: The validity of the calculated GFR GFRAA in patients over70 years has not been determined. Clinical correlation isessential. Performed By: #### L 100.0100, L500.2500 ####[facility] [address] [place], [address] ECRCL 47.26 ml/min Normal [facility] Comment on above: Performed By: #### L 100.0100, L500.2500 ####[facility] [address] [place], [address] EST GFR - AA 103 mL/min Normal >60 [facility] Comment on above: Result Comment: Afri can [place] GFR Calc Performed By: #### L 100.0100, L500.2500 ####[facility] [address] [place], [address] GAP 5 Normal 5-15 [facility] Comment on above: Performed By: #### L 100.0100, L500.2500 ####[facility] [address] [place], [address] GFR/1.73 sq M.predicted among non-blacks MDRD (S/P/Bld) [Vol rate/Area] 85 mL/min/{1.73_m2} Normal >60 [facility] Comment on above: Result Comment: Non- GFR Calc Performed By: #### L 100.0100, L500.2500 ####[facility] [address] [place], [address] Glucose [Mass/Vol] 97 mg/dL Normal 74-106 [facility] Comment on above: Performed By: #### L 100.0100, L500.2500 ####[facility] [address] [place], [address] Potassium [Moles/Vol] 3.7 mmol/L Normal 3.5-5.1 [facility] Comment on above: Performed By: #### L 100.0100, L500.2500 ####[facility] [address] [place], [address] Sodium [Moles/Vol] 143 mmol/L Normal 136-145 [facility] Comment on above: Performed By: #### L 100.0100, L500.2500 ####[facility] [address] [place], [address] Urea nitrogen [Mass/Vol] 7 mg/dL Normal 7-18 [facility] Comment on above: Performed By: #### L 100.0100, L500.2500 ####[facility] [address] [place], [address] CBC W/Diff, Automatedon 05- Absolute Lymph 1.58 X10 3/uL Normal 0.83-4.51 [facility] Comment on above: Performed By: #### L 100.0100, L500.2500 ####[facility] [address] [place], [address] Absolute Neut 2.8 X10 3/uL Normal 2.0-7.7 [facility] Comment on above: Performed By: #### L 100.0100, L500.2500 ####[facility] [address] [place], [address] Basophils/100 WBC (Bld) 1.1 % High 0-1 [facility] Comment on above: Performed By: #### L 100.0100, L500.2500 ####[facility] [address] [place], [address] Eosinophils/100 WBC (Bld) 5.3 % High 0-5 [facility] Comment on above: Performed By: #### L 100.0100, L500.2500 ####[facility] [address] [place], [address] Erythrocyte distribution width (RBC) [Ratio] 13.5 % Normal 11.6-14.6 [facility] Comment on above: Performed By: #### L 100.0100, L500.2500 ####[facility] [address] [place], [address] Hematocrit (Bld) [Volume fraction] 33.6 % Low 37-47 [facility] Comment on above: Performed By: #### L 100.0100, L500.2500 ####[facility] [address] [place], [address] Hemoglobin (Bld) [Mass/Vol] 10.6 g/dL Low 12.0-15.0 [facility] Comment on above: Performed By: #### L 100.0100, L500.2500 ####[facility] [address] [place], [address] IG% 1.100 High 0.0-0.9 [facility] Comment on above: Result Comment: IG% - Immature Granulocytes (promyelocytes, myelocytes andmetamyelocytes) > 1% indicates that a LEFT SHIFT is Present. Performed By: #### L 100.0100, L500.2500 ####[facility] [address] [place], [address] Lymphocytes/100 WBC (Bld) 29.8 % Normal 19-41 [facility] Comment on above: Performed By: #### L 100.0100, L500.2500 ####[facility] [address] [place], [address] MCH (RBC) [Entitic mass] 30.9 pg Normal 27.0-32.0 [facility] Comment on above: Performed By: #### L 100.0100, L500.2500 ####[facility] [address] [place], [address] MCHC (RBC) [Mass/Vol] 31.5 g/dL Low 32-36 [facility] Comment on above: Performed By: #### L 100.0100, L500.2500 ####[facility] [address] [place], [address] MCV (RBC) [Entitic vol] 98.0 fL Normal 81-99 [facility] Comment on above: Performed By: #### L 100.0100, L500.2500 ####[facility] [address] [place], [address] Monocytes/100 WBC (Bld) 9.8 % Normal 0-10 [facility] Comment on above: Performed By: #### L 100.0100, L500.2500 ####[facility] [address] [place], [address] Neutrophils/100 WBC (Bld) 52.9 % Normal 47-70 [facility] Comment on above: Performed By: #### L 100.0100, L500.2500 ####[facility] [address] [place], [address] Nucleated RBC (Bld) [#/Vol] 0 10*3/uL Normal 0-5 [facility] Comment on above: Performed By: #### L 100.0100, L500.2500 ####[facility] [address] [place], [address] Platelet mean volume (Bld) [Entitic vol] 9.8 fL Normal 6.2-12.0 [facility] Comment on above: Performed By: #### L 100.0100, L500.2500 ####[facility] [address] [place], [address] Platelets (Bld) [#/Vol] 356 10*3/uL Normal 150-450 [facility] Comment on above: Performed By: #### L 100.0100, L500.2500 ####[facility] [address] [place], [address] RBC (Bld) [#/Vol] 3.43 10*6/uL Low 4.2-5.4 [facility] Comment on above: Performed By: #### L 100.0100, L500.2500 ####[facility] [address] [place], [address] RDW SD 48.5 fl High 35.1-43.9 [facility] Comment on above: Performed By: #### L 100.0100, L500.2500 ####[facility] [address] [place], [address] WBC (Bld) [#/Vol] 5.3 10*3/uL Normal 4.4-11.0 [facility] Comment on above: Performed By: #### L 100.0100, L500.2500 ####[facility] [address] [place], [address] Basic Metabolic Profile (BMP )on 08-02-2023 BUN/CRE 14.2 RATIO Normal 10-20 [facility] Comment on above: Performed By: #### L 100.0100, L500.2500 ####[facility] [address] [place], [address] CA,Total 8.8 mg/dL Normal 8.5-10.1 [facility] Comment on above: Performed By: #### L 100.0100, L500.2500 ####[facility] [address] [place], [address] Chloride [Moles/Vol] 116 mmol/L High 98-107 [facility] Comment on above: Performed By: #### L 100.0100, L500.2500 ####[facility] [address] [place], [address] CO2 [Moles/Vol] 26.0 mmol/L Normal 21.0-32.0 [facility] Comment on above: Performed By: #### L 100.0100, L500.2500 ####[facility] [address] [place], [address] Creatinine [Mass/Vol] 0.70 mg/dL Normal 0.55-1.02 [facility] Comment on above: Result Comment: The validity of the calculated GFR GFRAA in patients over70 years has not been determined. Clinical correlation isessential. Performed By: #### L 100.0100, L500.2500 ####[facility] [address] [place], [address] ECRCL 47.26 ml/min Normal [facility] Comment on above: Performed By: #### L 100.0100, L500.2500 ####[facility] [address] [place], [address] EST GFR - AA 105 mL/min Normal >60 [facility] Comment on above: Result Comment: Afri can [place] GFR Calc Performed By: #### L 100.0100, L500.2500 ####[facility] [address] [place], [address] GAP 2 Low 5-15 [facility] Comment on above: Performed By: #### L 100.0100, L500.2500 ####[facility] [address] [place], [address] GFR/1.73 sq M.predicted among non-blacks MDRD (S/P/Bld) [Vol rate/Area] 86 mL/min/{1.73_m2} Normal >60 [facility] Comment on above: Result Comment: Non- GFR Calc Performed By: #### L 100.0100, L500.2500 ####[facility] [address] [place], [address] Glucose [Mass/Vol] 102 mg/dL Normal 74-106 [facility] Comment on above: Result Comment: Fast ing Glucose result from 100 to 125 mg/dLsuggests IMPAIRED HOMEOSTASIS per A.D.A. criteria. Performed By: #### L 100.0100, L500.2500 ####[facility] [address] [place], [address] Potassium [Moles/Vol] 3.6 mmol/L Normal 3.5-5.1 [facility] Comment on above: Performed By: #### L 100.0100, L500.2500 ####[facility] [address] [place], [address] Sodium [Moles/Vol] 144 mmol/L Normal 136-145 [facility] Comment on above: Performed By: #### L 100.0100, L500.2500 ####[facility] [address] [place], [address] Urea nitrogen [Mass/Vol] 10 mg/dL Normal 7-18 [facility] Comment on above: Performed By: #### L 100.0100, L500.2500 ####[facility] [address] [place], [address] CBC W/Diff, Automatedon 05-03 24-2023 Absolute Lymph 1.10 X10 3/uL Normal 0.83-4.51 [facility] Comment on above: Performed By: #### L 100.0100, L500.2500 ####[facility] [address] [place], [address] Absolute Neut 4.9 X10 3/uL Normal 2.0-7.7 [facility] Comment on above: Performed By: #### L 100.0100, L500.2500 ####[facility] [address] [place], [address] Basophils/100 WBC (Bld) 0.6 % Normal 0-1 [facility] Comment on above: Performed By: #### L 100.0100, L500.2500 ####[facility] [address] [place], [address] Eosinophils/100 WBC (Bld) 3.6 % Normal 0-5 [facility] Comment on above: Performed By: #### L 100.0100, L500.2500 ####[facility] [address] [place], [address] Erythrocyte distribution width (RBC) [Ratio] 13.6 % Normal 11.6-14.6 [facility] Comment on above: Performed By: #### L 100.0100, L500.2500 ####[facility] [address] [place], [address] Hematocrit (Bld) [Volume fraction] 32.3 % Low 37-47 [facility] Comment on above: Performed By: #### L 100.0100, L500.2500 ####[facility] [address] [place], [address] Hemoglobin (Bld) [Mass/Vol] 10.0 g/dL Low 12.0-15.0 [facility] Comment on above: Performed By: #### L 100.0100, L500.2500 ####[facility] [address] [place], [address] IG% 0.600 Normal 0.0-0.9 [facility] Comment on above: Result Comment: IG% - Immature Granulocytes (promyelocytes, myelocytes andmetamyelocytes) > 1% indicates that a LEFT SHIFT is Present. Performed By: #### L 100.0100, L500.2500 ####[facility] [address] [place], [address] Lymphocytes/100 WBC (Bld) 16.4 % Low 19-41 [facility] Comment on above: Performed By: #### L 100.0100, L500.2500 ####[facility] [address] [place], [address] MCH (RBC) [Entitic mass] 30.3 pg Normal 27.0-32.0 [facility] Comment on above: Performed By: #### L 100.0100, L500.2500 ####[facility] [address] [place], [address] MCHC (RBC) [Mass/Vol] 31.0 g/dL Low 32-36 [facility] Comment on above: Performed By: #### L 100.0100, L500.2500 ####[facility] [address] [place], [address] MCV (RBC) [Entitic vol] 97.9 fL Normal 81-99 [facility] Comment on above: Performed By: #### L 100.0100, L500.2500 ####[facility] [address] [place], [address] Monocytes/100 WBC (Bld) 6.6 % Normal 0-10 [facility] Comment on above: Performed By: #### L 100.0100, L500.2500 ####[facility] [address] [place], [address] Neutrophils/100 WBC (Bld) 72.2 % High 47-70 [facility] Comment on above: Performed By: #### L 100.0100, L500.2500 ####[facility] [address] [place], [address] Nucleated RBC (Bld) [#/Vol] 0 10*3/uL Normal 0-5 [facility] Comment on above: Performed By: #### L 100.0100, L500.2500 ####[facility] [address] [place], [address] Platelet mean volume (Bld) [Entitic vol] 9.9 fL Normal 6.2-12.0 [facility] Comment on above: Performed By: #### L 100.0100, L500.2500 ####[facility] [address] [place], [address] Platelets (Bld) [#/Vol] 309 10*3/uL Normal 150-450 [facility] Comment on above: Performed By: #### L 100.0100, L500.2500 ####[facility] [address] [place], [address] RBC (Bld) [#/Vol] 3.30 10*6/uL Low 4.2-5.4 [facility] Comment on above: Performed By: #### L 100.0100, L500.2500 ####[facility] [address] [place], [address] RDW SD 49.0 fl High 35.1-43.9 [facility] Comment on above: Performed By: #### L 100.0100, L500.2500 ####[facility] [address] [place], [address] WBC (Bld) [#/Vol] 6.7 10*3/uL Normal 4.4-11.0 [facility] Comment on above: Performed By: #### L 100.0100, L500.2500 ####[facility] [address] [place], [address] Basic Metabolic Profile (BMP )on 08-01-2023 BUN/CRE 17.0 RATIO Normal 10-20 [facility] Comment on above: Performed By: #### L 500.2500, L100.0100 ####[facility] [address] [place], [address] CA,Total 8.5 mg/dL Normal 8.5-10.1 [facility] Comment on above: Performed By: #### L 500.2500, L100.0100 ####[facility] [address] [place], [address] Chloride [Moles/Vol] 117 mmol/L High 98-107 [facility] Comment on above: Performed By: #### L 500.2500, L100.0100 ####[facility] [address] [place], [address] CO2 [Moles/Vol] 26.0 mmol/L Normal 21.0-32.0 [facility] Comment on above: Performed By: #### L 500.2500, L100.0100 ####[facility] [address] [place], [address] Creatinine [Mass/Vol] 0.71 mg/dL Normal 0.55-1.02 [facility] Comment on above: Result Comment: The validity of the calculated GFR GFRAA in patients over70 years has not been determined. Clinical correlation isessential. Performed By: #### L 500.2500, L100.0100 ####[facility] [address] [place], [address] ECRCL 51.45 ml/min Normal [facility] Comment on above: Performed By: #### L 500.2500, L100.0100 ####[facility] [address] [place], [address] EST GFR - AA 104 mL/min Normal >60 [facility] Comment on above: Result Comment: Afri can [place] GFR Calc Performed By: #### L 500.2500, L100.0100 ####[facility] [address] [place], [address] GAP 1 Low 5-15 [facility] Comment on above: Performed By: #### L 500.2500, L100.0100 ####[facility] [address] [place], [address] GFR/1.73 sq M.predicted among non-blacks MDRD (S/P/Bld) [Vol rate/Area] 86 mL/min/{1.73_m2} Normal >60 [facility] Comment on above: Result Comment: Non- GFR Calc Performed By: #### L 500.2500, L100.0100 ####[facility] [address] [place], [address] Glucose [Mass/Vol] 86 mg/dL Normal 74-106 [facility] Comment on above: Performed By: #### L 500.2500, L100.0100 ####[facility] [address] [place], [address] Potassium [Moles/Vol] 3.6 mmol/L Normal 3.5-5.1 [facility] Comment on above: Performed By: #### L 500.2500, L100.0100 ####[facility] [address] [place], [address] Sodium [Moles/Vol] 144 mmol/L Normal 136-145 [facility] Comment on above: Performed By: #### L 500.2500, L100.0100 ####[facility] [address] [place], [address] Urea nitrogen [Mass/Vol] 12 mg/dL Normal 7-18 [facility] Comment on above: Performed By: #### L 500.2500, L100.0100 ####[facility] [address] [place], [address] CBC W/Diff, Automatedon 05-1 -2023 Absolute Lymph 0.93 X10 3/uL Normal 0.83-4.51 [facility] Comment on above: Performed By: #### L 500.2500, L100.0100 ####[facility] [address] [place], [address] Absolute Neut 7.3 X10 3/uL Normal 2.0-7.7 [facility] Comment on above: Performed By: #### L 500.2500, L100.0100 ####[facility] [address] [place], [address] Basophils/100 WBC (Bld) 0.6 % Normal 0-1 [facility] Comment on above: Performed By: #### L 500.2500, L100.0100 ####[facility] [address] [place], [address] Eosinophils/100 WBC (Bld) 2.2 % Normal 0-5 [facility] Comment on above: Performed By: #### L 500.2500, L100.0100 ####[facility] [address] [place], [address] Erythrocyte distribution width (RBC) [Ratio] 13.9 % Normal 11.6-14.6 [facility] Comment on above: Performed By: #### L 500.2500, L100.0100 ####[facility] [address] [place], [address] Hematocrit (Bld) [Volume fraction] 31.0 % Low 37-47 [facility] Comment on above: Performed By: #### L 500.2500, L100.0100 ####[facility] [address] [place], [address] Hemoglobin (Bld) [Mass/Vol] 9.9 g/dL Low 12.0-15.0 [facility] Comment on above: Performed By: #### L 500.2500, L100.0100 ####[facility] [address] [place], [address] IG% 1.100 High 0.0-0.9 [facility] Comment on above: Result Comment: IG% - Immature Granulocytes (promyelocytes, myelocytes andmetamyelocytes) > 1% indicates that a LEFT SHIFT is Present. Performed By: #### L 500.2500, L100.0100 ####[facility] [address] [place], [address] Lymphocytes/100 WBC (Bld) 10.3 % Low 19-41 [facility] Comment on above: Performed By: #### L 500.2500, L100.0100 ####[facility] [address] [place], [address] MCH (RBC) [Entitic mass] 31.4 pg Normal 27.0-32.0 [facility] Comment on above: Performed By: #### L 500.2500, L100.0100 ####[facility] [address] [place], [address] MCHC (RBC) [Mass/Vol] 31.9 g/dL Low 32-36 [facility] Comment on above: Performed By: #### L 500.2500, L100.0100 ####[facility] [address] [place], [address] MCV (RBC) [Entitic vol] 98.4 fL Normal 81-99 [facility] Comment on above: Performed By: #### L 500.2500, L100.0100 ####[facility] [address] [place], [address] Monocytes/100 WBC (Bld) 4.9 % Normal 0-10 [facility] Comment on above: Performed By: #### L 500.2500, L100.0100 ####[facility] [address] [place], [address] Neutrophils/100 WBC (Bld) 80.9 % High 47-70 [facility] Comment on above: Performed By: #### L 500.2500, L100.0100 ####[facility] [address] [place], [address] Nucleated RBC (Bld) [#/Vol] 0 10*3/uL Normal 0-5 [facility] Comment on above: Performed By: #### L 500.2500, L100.0100 ####[facility] [address] [place], [address] Platelet mean volume (Bld) [Entitic vol] 9.8 fL Normal 6.2-12.0 [facility] Comment on above: Performed By: #### L 500.2500, L100.0100 ####[facility] [address] [place], [address] Platelets (Bld) [#/Vol] 284 10*3/uL Normal 150-450 [facility] Comment on above: Performed By: #### L 500.2500, L100.0100 ####[facility] [address] [place], [address] RBC (Bld) [#/Vol] 3.15 10*6/uL Low 4.2-5.4 [facility] Comment on above: Performed By: #### L 500.2500, L100.0100 ####[facility] [address] [place], [address] RDW SD 50.0 fl High 35.1-43.9 [facility] Comment on above: Performed By: #### L 500.2500, L100.0100 ####[facility] [address] [place], [address] WBC (Bld) [#/Vol] 9.0 10*3/uL Normal 4.4-11.0 [facility] Comment on above: Performed By: #### L 500.2500, L100.0100 ####[facility] [address] [place], [address] CBC W/Diff, Automatedon 07-17 PATH REV Reviewed Normal [facility] Comment on above: Result Comment: Norm ocytic anemia.Clinical correlation necessary.Donavon José M.D. 07/31/23 AMENDED REPORT 07/31/23 1321 PATH REV previously reported as: July Performed By: #### L 501.4020, L505.5000, L300.8000, L100.0100, L500.2500 ####[facility] [address] [place], [address] Absolute Lymph 0.73 X10 3/uL Low 0.83-4.51 [facility] Comment on above: Performed By: #### L 100.0100, L500.4050 ####[facility] [address] [place], [address] Absolute Neut 6.5 X10 3/uL Normal 2.0-7.7 [facility] Comment on above: Performed By: #### L 100.0100, L500.4050 ####[facility] [address] [place], [address] Basophils/100 WBC (Bld) 0.4 % Normal 0-1 [facility] Comment on above: Performed By: #### L 100.0100, L500.4050 ####[facility] [address] [place], [address] Eosinophils/100 WBC (Bld) 1.4 % Normal 0-5 [facility] Comment on above: Performed By: #### L 100.0100, L500.4050 ####[facility] [address] [place], [address] Erythrocyte distribution width (RBC) [Ratio] 13.9 % Normal 11.6-14.6 [facility] Comment on above: Performed By: #### L 100.0100, L500.4050 ####[facility] [address] [place], [address] Hematocrit (Bld) [Volume fraction] 28.5 % Low 37-47 [facility] Comment on above: Performed By: #### L 100.0100, L500.4050 ####[facility] [address] [place], [address] Hemoglobin (Bld) [Mass/Vol] 9.1 g/dL Low 12.0-15.0 [facility] Comment on above: Performed By: #### L 100.0100, L500.4050 ####[facility] [address] [place], [address] IG% 0.400 Normal 0.0-0.9 [facility] Comment on above: Result Comment: IG% - Immature Granulocytes (promyelocytes, myelocytes andmetamyelocytes) > 1% indicates that a LEFT SHIFT is Present. Performed By: #### L 100.0100, L500.4050 ####[facility] [address] [place], [address] Lymphocytes/100 WBC (Bld) 9.0 % Low 19-41 [facility] Comment on above: Performed By: #### L 100.0100, L500.4050 ####[facility] [address] [place], [address] MCH (RBC) [Entitic mass] 31.3 pg Normal 27.0-32.0 [facility] Comment on above: Performed By: #### L 100.0100, L500.4050 ####[facility] [address] [place], [address] MCHC (RBC) [Mass/Vol] 31.9 g/dL Low 32-36 [facility] Comment on above: Performed By: #### L 100.0100, L500.4050 ####[facility] [address] [place], [address] MCV (RBC) [Entitic vol] 97.9 fL Normal 81-99 [facility] Comment on above: Performed By: #### L 100.0100, L500.4050 ####[facility] [address] [place], [address] Monocytes/100 WBC (Bld) 8.1 % Normal 0-10 [facility] Comment on above: Performed By: #### L 100.0100, L500.4050 ####[facility] [address] [place], [address] Neutrophils/100 WBC (Bld) 80.7 % High 47-70 [facility] Comment on above: Performed By: #### L 100.0100, L500.4050 ####[facility] [address] [place], [address] Nucleated RBC (Bld) [#/Vol] 0 10*3/uL Normal 0-5 [facility] Comment on above: Performed By: #### L 100.0100, L500.4050 ####[facility] [address] [place], [address] Platelet mean volume (Bld) [Entitic vol] 10.2 fL Normal 6.2-12.0 [facility] Comment on above: Performed By: #### L 100.0100, L500.4050 ####[facility] [address] [place], [address] Platelets (Bld) [#/Vol] 266 10*3/uL Normal 150-450 [facility] Comment on above: Performed By: #### L 100.0100, L500.4050 ####[facility] [address] [place], [address] RBC (Bld) [#/Vol] 2.91 10*6/uL Low 4.2-5.4 [facility] Comment on above: Performed By: #### L 100.0100, L500.4050 ####[facility] [address] [place], [address] RDW SD 50.5 fl High 35.1-43.9 [facility] Comment on above: Performed By: #### L 100.0100, L500.4050 ####[facility] [address] [place], [address] WBC (Bld) [#/Vol] 8.1 10*3/uL Normal 4.4-11.0 [facility] [facility] Comment on above: Performed By: #### L 100.0100, L500.4050 ####[facility] [address] [place], [address] Comprehensive Metabolic Prof [facility] 07-31-2023 Albumin [Mass/Vol] 1.8 g/dL Low 3.2-5.0 [facility] Comment on above: Performed By: #### L 100.0100, L500.4050 ####[facility] [address] [place], [address] Albumin/Globulin [Mass ratio] 0.6 {ratio} Low 0.9-2.4 [facility] Comment on above: Performed By: #### L 100.0100, L500.4050 ####[facility] [address] [place], [address] ALK P 73 U/L Normal 45-117 [facility] Comment on above: Performed By: #### L 100.0100, L500.4050 ####[facility] [address] [place], [address] ALT [Catalytic activity/Vol] 9 U/L Low 13-56 [facility] Comment on above: Performed By: #### L 100.0100, L500.4050 ####[facility] [address] [place], [address] AST [Catalytic activity/Vol] 13 U/L Low 15-37 [facility] Comment on above: Performed By: #### L 100.0100, L500.4050 ####[facility] [address] [place], [address] Bilirubin [Mass/Vol] 0.40 mg/dL Normal 0.20-1.00 [facility] Comment on above: Result Comment: For patients on eltrombopag therapy, use of Dimension [place] TBIL is not recommended. Performed By: #### L 100.0100, L500.4050 ####[facility] [address] [place], [address] BUN/CRE 20.3 RATIO High 10-20 [facility] Comment on above: Performed By: #### L 100.0100, L500.4050 ####[facility] [address] [place], [address] CA,Total 7.7 mg/dL Low 8.5-10.1 [facility] Comment on above: Performed By: #### L 100.0100, L500.4050 ####[facility] [address] [place], [address] Chloride [Moles/Vol] 114 mmol/L High 98-107 [facility] Comment on above: Performed By: #### L 100.0100, L500.4050 ####[facility] [address] [place], [address] CO2 [Moles/Vol] 22.0 mmol/L Normal 21.0-32.0 [facility] Comment on above: Performed By: #### L 100.0100, L500.4050 ####[facility] [address] [place], [address] Creatinine [Mass/Vol] 0.89 mg/dL Normal 0.55-1.02 [facility] Comment on above: Result Comment: The validity of the calculated GFR GFRAA in patients over70 years has not been determined. Clinical correlation isessential. Performed By: #### L 100.0100, L500.4050 ####[facility] [address] [place], [address] ECRCL 42.48 ml/min Normal [facility] Comment on above: Performed By: #### L 100.0100, L500.4050 ####[facility] [address] [place], [address] EST GFR - AA 80 mL/min Normal >60 [facility] Comment on above: Result Comment: Afri can [place] Islander GFR Calc Performed By: #### L 100.0100, L500.4050 ####[facility] [address] [place], [address] GAP 5 Normal 5-15 [facility] Comment on above: Performed By: #### L 100.0100, L500.4050 ####[facility] [address] [place], [address] GFR/1.73 sq M.predicted among non-blacks MDRD (S/P/Bld) [Vol rate/Area] 66 mL/min/{1.73_m2} Normal >60 [facility] Comment on above: Result Comment: Non- GFR Calc Performed By: #### L 100.0100, L500.4050 ####[facility] [address] [place], [address] Globulin (S) [Mass/Vol] 3.1 g/dL Normal 2.2-4.2 [facility] Comment on above: Performed By: #### L 100.0100, L500.4050 ####[facility] [address] [place], [address] Glucose [Mass/Vol] 86 mg/dL Normal 74-106 [facility] Comment on above: Performed By: #### L 100.0100, L500.4050 ####[facility] [address] [place], [address] Potassium [Moles/Vol] 3.5 mmol/L Normal 3.5-5.1 [facility] Comment on above: Performed By: #### L 100.0100, L500.4050 ####[facility] [address] [place], [address] Sodium [Moles/Vol] 141 mmol/L Normal 136-145 [facility] Comment on above: Performed By: #### L 100.0100, L500.4050 ####[facility] [address] [place], [address] T PROT 4.9 g/dL Low 6.4-8.2 [facility] Comment on above: Performed By: #### L 100.0100, L500.4050 ####[facility] [address] [place], [address] Urea nitrogen [Mass/Vol] 18 mg/dL Normal 7-18 [facility] Comment on above: Performed By: #### L 100.0100, L500.4050 ####[facility] [address] [place], [address] Consultation - Orthopedicson 07-31-2023 Consultation - Orthopedics Normal [facility] L501.4020on 07-31-2023 TROPONIN-I HS 6 pg/mL Normal 3.0-54.0 [facility] Comment on above: Order Comment: Comme nts: SPECIMEN #3'TROP' Serial specimen #1, #2 or #3: 3 Result Comment: Natalia white Note: New Test Units and Gender Specific Reference Ranges. For more information see Policy Stat Procedure [place] High Sensitivity Troponin (TNIH) and attachments. Performed By: #### L 501.4020 ####[facility] [address] [place], [address] Legionella Antigen Urineon 0 07-31-2023 LEGU Normal [facility] Comment on above: Performed By: #### M 300.4500, M300.4600 ####[facility] [address] [place], [address] M R Staph Aureus DNA by PCRo n 07-31-2023 MRSA DNA ASSAY Negative Normal Negative [facility] Comment on above: Performed By: #### L 8200.1000 ####[facility] [address] [place], [address] Modified Barium Swallow Stud yon 07-31-2023 Modified Barium Swallow Study Normal [facility] Procalcitoninon 07-31-2023 Procalcitonin 7.98 ng/mL High 0.00-0.09 [facility] Comment on above: Result Comment: A pr ocalcitonin (PCT) level above 2.0 ng/mL on the first day of ICU admission is associated with a high risk for progression to severe sepsis and/or septic shock. A PCT level below 0.5 ng/mL on the first day of ICU admission is associated with a low risk for progression to severe and/or septic shock. Note: Concentrations <0.5 ng/mL do not exclude an infection on account of localized infections (without systemic signs) which can be associated with such low concentrations, or a systemic infection in its initial stages (<6 hours). Furthermore, increased procalcitonin can occur without infection. PCT concentrations between 0.5 and 2.0 ng/mL should be interpreted taking into account the patient's history. It is recommended to retest PCT within 6-24 hours if any concentrations <2 ng/mL are obtained. Performed By: #### L 503.6620, L501.5200, L509.7000 ####[facility] [address] [place], [address] RESPIRATORY PANEL MOLECULARo n 07-31-2023 RP PANEL Normal [facility] Comment on above: Performed By: #### M 100.638 ####[facility] [address] [place], [address] Strep pneumoniae Antig(UR,CS F)on 07-31-2023 STPAG Normal [facility] Comment on above: Performed By: #### M 300.4500, M300.4600 ####[facility] [address] [place], [address] Absolute lymphocyte countOrd ered By: Tony Haque on 07-30-2023 Lymphocytes Auto (Unsp spec) [#/Vol] 0.79 10*3/uL 0.83-4.51 [facility] Ammoniaon 07-30-2023 Ammonia (P) [Moles/Vol] 27.0 umol/L Normal 11-32 [facility] Comment on above: Performed By: #### L 503.5510 ####[facility] [address] [place], [address] Automated lymphocyte count a s percentage of total leukocytesOrdered By: Tony Haque on 07-30-2023 Lymphocytes/100 WBC Auto (Unsp spec) 8.8 % 19-41 [facility] BNP,B-Type NATRIURETIC PEPTI Nicolle 07-30-2023 Natriuretic peptide B (Bld) [Mass/Vol] 88.3 pg/mL Normal 0-100 [facility] Comment on above: Performed By: #### L 503.6620, L501.5200, L509.7000 ####[facility] [address] [place], [address] Base excessOrdered By: Guilherme Collins on 07-30-2023 Base excess Calc (BldV) [Moles/Vol] -2 mmol/L -1.0-3.5 [facility] Basic Metabolic Profile (BMP )on 07-30-2023 BUN/CRE 12.1 RATIO Normal 10-20 [facility] Comment on above: Order Comment: 'TROP ' Serial specimen #1, #2 or #3: 1 Performed By: #### L 501.4020, L505.5000, L300.8000, L100.0100, L500.2500 ####[facility] [address] [place], [address] CA,Total 8.6 mg/dL Normal 8.5-10.1 [facility] Comment on above: Order Comment: 'TROP ' Serial specimen #1, #2 or #3: 1 Performed By: #### L 501.4020, L505.5000, L300.8000, L100.0100, L500.2500 ####[facility] [address] [place], [address] Chloride [Moles/Vol] 108 mmol/L High 98-107 [facility] Comment on above: Order Comment: 'TROP ' Serial specimen #1, #2 or #3: 1 Performed By: #### L 501.4020, L505.5000, L300.8000, L100.0100, L500.2500 ####[facility] [address] [place], [address] CO2 [Moles/Vol] 22.0 mmol/L Normal 21.0-32.0 [facility] Comment on above: Order Comment: 'TROP ' Serial specimen #1, #2 or #3: 1 Performed By: #### L 501.4020, L505.5000, L300.8000, L100.0100, L500.2500 ####[facility] [address] [place], [address] Creatinine [Mass/Vol] 1.74 mg/dL High 0.55-1.02 [facility] Comment on above: Order Comment: 'TROP ' Serial specimen #1, #2 or #3: 1 Result Comment: The validity of the calculated GFR GFRAA in patients over70 years has not been determined. Clinical correlation isessential. Performed By: #### L 501.4020, L505.5000, L300.8000, L100.0100, L500.2500 ####[facility] [address] [place], [address] ECRCL 22.77 ml/min Normal [facility] Comment on above: Order Comment: 'TROP ' Serial specimen #1, #2 or #3: 1 Performed By: #### L 501.4020, L505.5000, L300.8000, L100.0100, L500.2500 ####[facility] [address] [place], [address] EST GFR - AA 37 mL/min Low >60 [facility] Comment on above: Order Comment: 'TROP ' Serial specimen #1, #2 or #3: 1 Result Comment: Afri can [place] GFR Calc Performed By: #### L 501.4020, L505.5000, L300.8000, L100.0100, L500.2500 ####[facility] [address] [place], [address] GAP 9 Normal 5-15 [facility] Comment on above: Order Comment: 'TROP ' Serial specimen #1, #2 or #3: 1 Performed By: #### L 501.4020, L505.5000, L300.8000, L100.0100, L500.2500 ####[facility] [address] [place], [address] GFR/1.73 sq M.predicted among non-blacks MDRD (S/P/Bld) [Vol rate/Area] 31 mL/min/{1.73_m2} Low >60 [facility] Comment on above: Order Comment: 'TROP ' Serial specimen #1, #2 or #3: 1 Result Comment: Non- GFR Calc Performed By: #### L 501.4020, L505.5000, L300.8000, L100.0100, L500.2500 ####[facility] [address] [place], [address] Glucose [Mass/Vol] 110 mg/dL High 74-106 [facility] Comment on above: Order Comment: 'TROP ' Serial specimen #1, #2 or #3: 1 Result Comment: Fast ing Glucose result from 100 to 125 mg/dLsuggests IMPAIRED HOMEOSTASIS per A.D.A. criteria. Performed By: #### L 501.4020, L505.5000, L300.8000, L100.0100, L500.2500 ####[facility] [address] [place], [address] Potassium [Moles/Vol] 3.4 mmol/L Low 3.5-5.1 [facility] Comment on above: Order Comment: 'TROP ' Serial specimen #1, #2 or #3: 1 Performed By: #### L 501.4020, L505.5000, L300.8000, L100.0100, L500.2500 ####[facility] [address] [place], [address] Sodium [Moles/Vol] 139 mmol/L Normal 136-145 [facility] Comment on above: Order Comment: 'TROP ' Serial specimen #1, #2 or #3: 1 Performed By: #### L 501.4020, L505.5000, L300.8000, L100.0100, L500.2500 ####[facility] [address] [place], [address] Urea nitrogen [Mass/Vol] 21 mg/dL High 7-18 [facility] Comment on above: Order Comment: 'TROP ' Serial specimen #1, #2 or #3: 1 Performed By: #### L 501.4020, L505.5000, L300.8000, L100.0100, L500.2500 ####[facility] [address] [place], [address] Basophil percentageOrdered B y: Tony Haque on 07-30-2023 Basophil percentage 0 SEEN /hpf 0-5 [facility] Ammonia (P) [Moles/Vol] 27.0 umol/L 11-32 [facility] Basophils/100 WBC (Bld) 0.3 % 0-1 [facility] Chloride [Moles/Vol] 108 mmol/L 98-107 [facility] Eosinophils/100 WBC (Bld) 0.2 % 0-5 [facility] Glucose [Mass/Vol] 110 mg/dL 74-106 [facility] Comment on above: Fasting Glucose resu lt from 100 to 125 mg/dL suggests IMPAIRED HOMEOSTASIS per A.D.A. criteria. Hemoglobin (Bld) [Mass/Vol] 10.9 g/dL 12.0-15.0 [facility] Lactate [Moles/Vol] 3.4 mmol/L 0.4-2.0 [facility] Comment on above: Critical Result(s) C alled at: 14:41:53 07/30/2023 by: Ramiro Stephenson RN (ER). Results read back by same. Monocytes/100 WBC (Bld) 8.2 % 0-10 [facility] Neutrophils (Bld) [#/Vol] 7.4 10*3/uL 2.0-7.7 [facility] Neutrophils/100 WBC (Bld) 81.8 % 47-70 [facility] Potassium [Moles/Vol] 3.4 mmol/L 3.5-5.1 [facility] Sodium [Moles/Vol] 139 mmol/L 136-145 [facility] WBC (Bld) [#/Vol] 9.0 10*3/uL 4.4-11.0 [facility] Bilirubin Test strip Ql (U)O rdered By: Tony Haque on 07-30-2023 Bilirubin Ql (U) 1 mg/dL Negative [facility] Comment on above: COLOR OF URINE MAY A FFECT DIPSTICK RESULTS. Blood manual differential co mment interpretation (narrative result)Ordered By: Tony Haque on 07-30-2023 Manual differential comment [place] (Bld) [Interp] See comment [facility] Comment on above: BANDS NOTED Brain/Head without Contrasto n 07-30-2023 Brain/Head without Contrast Normal [facility] CO2 (BldV) [Moles/Vol]Ordere d By: Guilherme Collins on 07-30-2023 CO2 [Moles/Vol] 23 mmol/L 23-33 [facility] CTA Chest W/WO Contraston CTA Chest W/WO Contrast Normal [facility] Chest 1 View (Portable)on Chest 1 View (Portable) Normal [facility] D-Dimer Quantitative (DVT/PE )on 07-30-2023 D-DIMER QUANT 3.19 FEU/ug/m Invalid Interpretation Code 0.27-0.49 [facility] Comment on above: Order Comment: CRITI QI VALUE VERIFIED. CALLED TO ANETTE [id number]/13/24 1437 Kamryn Gomez.RESULTS READ BACK BY SAME . Result Comment: D-Di daniel ELEVATED (>0.49): Additional studies and clinicalassessments are indicated to conclude diagnosis of:Deep Vein Thrombosis (DVT) or Pulmonary Embolism (PE) Performed By: #### L 501.4020, L505.5000, L300.8000, L100.0100, L500.2500 ####[facility] [address] [place], [place], [id number] Determination of erythrocyte mean corpuscular volume (MCV)Ordered By: Tony Haque on 07-30-2023 MCV (RBC) [Entitic vol] 96.8 fL 81-99 [facility] Echo Completeon 07-30-2023 Echo Complete Normal [facility] Emergency Department Summary on 07-30-2023 Emergency Department Summary Normal [facility] Erythrocyte distribution wid th ratioOrdered By: Tony Haque on 07-30-2023 Erythrocyte distribution width (RBC) [Ratio] 13.7 % 11.6-14.6 [facility] Erythrocyte distribution wid th standard deviationOrdered By: Tony Haque on 07-30-2023 Erythrocyte distribution width (RBC) [Entitic vol] 48.8 fL 35.1-43.9 [facility] H AND P Exam - Hospitaliston 07-30-2023 H&P Exam - Hospitalist Normal [facility] Hematocrit Auto (Bld) [Volum e fraction]Ordered By: Tony Haque on 07-30-2023 Hematocrit (Bld) [Volume fraction] 33.8 % 37-47 [facility] Immature granulocytes/100 WB C Auto (Bld)Ordered By: Tony Haque on 07-30-2023 Immature granulocytes/100 WBC (Bld) 0.700 % 0.0-0.9 [facility] Comment on above: IG% - Immature Granu locytes (promyelocytes, myelocytes and metamyelocytes) > 1% indicates that a LEFT SHIFT is Present. Ketones Test strip Ql (U)Ord ered By: Tony Haque on 07-30-2023 Ketones Ql (U) 5 mg/dl Negative [facility] L501.4020on 07-30-2023 TROPONIN-I HS 6 pg/mL Normal 3.0-54.0 [facility] Comment on above: Order Comment: Comme nts: SPECIMEN #2'TROP' Serial specimen #1, #2 or #3: 2 Result Comment: Plea se Note: New Test Units and Gender Specific Reference Ranges. For more information see Policy Stat Procedure [place] High Sensitivity Troponin (TNIH) and attachments. Performed By: #### L 501.4020 ####[facility] [address] [place], [address](846) TROPONIN-I HS 7 pg/mL Normal 3.0-54.0 [facility] Comment on above: Order Comment: 'TROP ' Serial specimen #1, #2 or #3: 1 Result Comment: Plea se Note: New Test Units and Gender Specific Reference Ranges. For more information see Policy Stat Procedure [place] High Sensitivity Troponin (TNIH) and attachments. Performed By: #### L 501.4020 ####[facility] [address] [place], [place], [address](701) TROPONIN-I HS 6 pg/mL Normal 3.0-54.0 [facility] Comment on above: Order Comment: 'TROP ' Serial specimen #1, #2 or #3: 1 Result Comment: Plea se Note: New Test Units and Gender Specific Reference Ranges. For more information see Policy Stat Procedure [place] High Sensitivity Troponin (TNIH) and attachments. Performed By: #### L 501.4020, L505.5000, L300.8000, L100.0100, L500.2500 ####[facility] [address] [place], [place], [id number] Laboratory - Chemistry and C hemistry - challengeOrdered By: Anastasia Khan on 07-30-2023 Magnesium [Mass/Vol] 1.7 mg/dL 1.6-2.6 [facility] Natriuretic peptide B (Bld) [Mass/Vol] 88.3 pg/mL 0-100 [facility] Laboratory - Chemistry and C hemistry - challengeOrdered By: Guilherme Collins on 07-30-2023 HCO3 (Bld) [Moles/Vol] 22 mmol/L 22-26 [facility] Laboratory - Chemistry and C hemistry - challengeOrdered By: Tony Haque on 07-30-2023 CO2 [Moles/Vol] 22.0 mmol/L 21.0-32.0 [facility] Urea nitrogen/Creatinine [Mass ratio] 12.1 mg/mg 10-20 [facility] Laboratory - Drug toxicology Ordered By: Tony Haque on 07-30-2023 Amphetamines Ql (U) Negative <1000 ng/mL [facility] Benzodiazepines Ql (U) Positive < 200 ng/mL [facility] Cannabinoids Screen Ql (U) Negative < 50 ng/mL [facility] Cocaine Ql (U) Negative < 300 ng/mL [facility] Opiates Ql (U) Negative < 300 ng/mL [facility] Laboratory - Hematology and Cell countsOrdered By: Tony Haque on 07-30-2023 MCH (RBC) [Entitic mass] 31.2 pg 27.0-32.0 [facility] MCHC (RBC) [Mass/Vol] 32.2 g/dL 32-36 [facility] Nucleated RBC/100 WBC (Bld) [Ratio] 0 % 0-5 [facility] Platelet mean volume (Bld) [Entitic vol] 10.6 fL 6.2-12.0 [facility] Platelets (Bld) [#/Vol] 317 10*3/uL 150-450 [facility] Laboratory - Microbiology an d Antimicrobial susceptibilityOrdered By: Tony Haque on 07-30-2023 SARS-CoV-2 (COVID-19) RNA ANTIONE+probe Ql (Unsp spec) [facility] Lactic Acidon 07-30-2023 Lactate [Moles/Vol] 1.9 mmol/L Normal 0.4-1.9 [facility] Comment on above: Performed By: #### L 503.6005 ####[facility] [address] [place], [address] Lactate [Moles/Vol] 3.4 mmol/L Invalid Interpretation Code 0.4-1.9 [facility] Comment on above: Order Comment: Y Result Comment: Crit ical Result(s) Called at: 14:41:53 07/30/2023 by: Alvino Stephenson RN (ER). Results read back by same. Performed By: #### L 503.6005 ####[facility] [address] [place], [address] M100.678on 07-30-2023 M100.678 Normal [facility] Comment on above: Performed By: #### M 100.678, L400.0001 ####[facility] [address] [place], [address] Magnesiumon 07-30-2023 Magnesium [Mass/Vol] 1.7 mg/dL Normal 1.6-2.6 [facility] Comment on above: Order Comment: Comme nts: may add to ED labs Performed By: #### L 503.6620, L501.5200, L509.7000 ####[facility] [address] [place], [address] Mucus LM Ql (Urine sed)Order ed By: Tony Haque on 07-30-2023 Mucus Ql (Urine sed) 0 SEEN /hpf [facility] Nitrite Test strip Ql (U)Ord ered By: Tony Haque on 07-30-2023 Nitrite Ql (U) Negative Negative [facility] No Panel InformationOrdered By: Tony Haque on 07-30-2023 MDMA (Ecstasy) Screen Negative < 500 ng/mL [facility] Urine Barbiturates Screen Negative < 200 ng/mL [facility] Urine Drug Screen Comment [facility] Comment on above: CONFIRMATORY TESTING FOR ALL POSITIVE URINE DRUG SCREENRESULTS WILL ONLY BE SENT OUT UPON PHYSICIAN ORDER. VISTA Urine Drug Screen methods provide only preliminaryanalytical test results. A more specific alternate chemicalmethod must be used in order to obtain a confirmedanalytical result. Gas chromatography/mass spectrometery(GC/MS) is the preferred confirmatory method. Clinicalconsideration and professional judgement should be appliedto any drug of abuse test result, particularly whenpreliminary positive results are used. URINE TCA TESTING MUST BE ORDERED SEPARATELY. USE TESTMNEMONIC: [facility] Urine Methadone Screen Negative < 300 ng/mL [facility] Urine RBC 0 SEEN /hpf 0-5 [facility] D-Dimer Quantitative (PE/DVT) 3.19 FEU/ug/m 0.27-0.49 [facility] Comment on above: D-Dimer ELEVATED (>0 .49): Additional studies and clinicalassessments are indicated to conclude diagnosis of:Deep Vein Thrombosis (DVT) or Pulmonary Embolism (PE) Estimated Creatinine Clearance Calc 22.77 ml/min [facility] Estimated GFR (MDRD) Amer 37 mL/min >60 [facility] Comment on above: GFR Calc Estimated GFR (MDRD) Non-Af Amer 31 mL/min >60 [facility] Comment on above: Non- GFR Calc Troponin I High Sensitivity 6 pg/mL 3.0-54.0 [facility] Comment on above: Please Note: New Nu t Units and Gender Specific Reference Ranges. For more information see Policy Stat Procedure [place] High Sensitivity Troponin (TNIH) and attachments. No Panel InformationOrdered By: Guilherme Collins on 07-30-2023 Blood Gas Oxygen Percent 21.0 [facility] Blood Gas Sample Site Not entered [facility] Blood Gas Specimen Type PEYTON [facility] Oxygen Delivery Device Not entered [facility] PCO2 venousOrdered By: Guilherme Collins on 07-30-2023 CO2 (BldV) [Partial pressure] 29.8 mm[Hg] 41-51 [facility] PO2 venousOrdered By: Guilherme reyes on 07-30-2023 Oxygen (BldV) [Partial pressure] 73 mm[Hg] 25-40 [facility] Protein Test strip Ql (U)Ord ered By: Tony Haque on 07-30-2023 Protein Ql (U) 15 mg/dl Negative [facility] RBC Auto (Bld) [#/Vol]Ordere d By: Tony Haque on 07-30-2023 RBC (Bld) [#/Vol] 3.49 10*6/uL 4.2-5.4 [facility] Review by pathologistOrdered By: Tony Haque on 07-30-2023 Pathologist review [place] (Unsp spec) [Interp] May foll [facility] Serum or plasma calcium rosangela urement (mass/volume)Ordered By: Tony Haque on 07-30-2023 Calcium [Mass/Vol] 8.6 mg/dL 8.5-10.1 [facility] Serum or plasma creatinine m easurement (mass/volume)Ordered By: Tony Haque on 07-30-2023 Creatinine [Mass/Vol] 1.74 mg/dL 0.55-1.02 [facility] Comment on above: The validity of the calculated GFR & GFRAA in patients over 70 years has not been determined. Clinical correlation is essential. Serum or plasma urea nitroge n measurement (mass/volume)Ordered By: Tony Haque on 07-30-2023 Urea nitrogen [Mass/Vol] 21 mg/dL 7-18 [facility] Shoulder min 2 Viewson 07-29 Shoulder min 2 Views Normal [facility] Sinus/Facial Boneon 07-30-19 24 Sinus/Facial Bone Normal [facility] Smudge cell detectionOrdered By: Tony Haque on 07-30-2023 Smudge cells LM Ql (Bld) 1+ [facility] Spine Cervical without Contr ason 07-30-2023 Spine Cervical without Contras Normal [facility] Squamous epithelial cells de tection in urine sediment by light microscopyOrdered By: Tony Haque on 05-13-2024 Epithelial cells.squamous LM Ql (Urine sed) 0 SEEN /hpf 5-10 [facility] Thin prep Papanicolaou smear with manual screeningOrdered By: Tony Haque on 07-30-2023 Thin prep Papanicolaou smear with manual screening 9 -15 [facility] Urinalysis, Completeon 07-29 BACTERIA 0 SEEN Normal None Seen [facility] Comment on above: Order Comment: DUKE CTOR TO SPECIFY Performed By: #### M 100.678, L400.0001 ####[facility] [address] [place], [address] EPI,SQUAMOUS 0 SEEN Normal 5-10 [facility] Comment on above: Order Comment: DUKE CTOR TO SPECIFY Performed By: #### M 100.678, L400.0001 ####[facility] [address] [place], [address] Mucus Ql (Urine sed) 0 SEEN Normal [facility] Comment on above: Order Comment: DUKE CTOR TO SPECIFY Performed By: #### M 100.678, L400.0001 ####[facility] [address] [place], [address] RBC 0 SEEN Normal 0-5 [facility] Comment on above: Order Comment: DUKE CTOR TO SPECIFY Performed By: #### M 100.678, L400.0001 ####[facility] [address] [place], [address] WBC 0 SEEN Normal 0-5 [facility] Comment on above: Order Comment: DUKE CTOR TO SPECIFY Performed By: #### M 100.678, L400.0001 ####[facility] [address] [place], [address] Urine Drug Screen (VISTA)on 07-30-2023 AMPHETAMINES Negative Normal <1000 ng/mL [facility] Comment on above: Performed By: #### L 501.4020, L505.5000, L300.8000, L100.0100, L500.2500 ####[facility] [address] [place], [address] BARBITIURATES Negative Normal < 200 ng/mL [facility] Comment on above: Performed By: #### L 501.4020, L505.5000, L300.8000, L100.0100, L500.2500 ####[facility] [address] [place], [place], [phone] BENZODIAZIPINE Positive Abnormal < 200 ng/mL [facility] Comment on above: Performed By: #### L 501.4020, L505.5000, L300.8000, L100.0100, L500.2500 ####[facility] [address] [place], [place], [phone] COCAINE Negative Normal < 300 ng/mL [facility] Comment on above: Performed By: #### L 501.4020, L505.5000, L300.8000, L100.0100, L500.2500 ####[facility] [address] [place], [place], [phone] ECSTACY Negative Normal < 500 ng/mL [facility] Comment on above: Performed By: #### L 501.4020, L505.5000, L300.8000, L100.0100, L500.2500 ####[facility] [address] [place], [place], [phone] METHADONE Negative Normal < 300 ng/mL [facility] Comment on above: Performed By: #### L 501.4020, L505.5000, L300.8000, L100.0100, L500.2500 ####[facility] [address] [place] [address] OPIATES Negative Normal < 300 ng/mL [facility] Comment on above: Performed By: #### L 501.4020, L505.5000, L300.8000, L100.0100, L500.2500 ####[facility] [address] [place], [address] PCP Negative Normal < 25 ng/mL [facility] Comment on above: Performed By: #### L 501.4020, L505.5000, L300.8000, L100.0100, L500.2500 ####[facility] [address] [place], [address] THC Negative Normal < 50 ng/mL [facility] Comment on above: Performed By: #### L 501.4020, L505.5000, L300.8000, L100.0100, L500.2500 ####[facility] [address] [place], [address] VISTA UDS PH 5 Normal [facility] Comment on above: Performed By: #### L 501.4020, L505.5000, L300.8000, L100.0100, L500.2500 ####[facility] [address] [place], [address] Urine blood detectionOrdered By: Tony Haque on 07-30-2023 RBC Ql (U) Negative Negative [facility] Urine clarityOrdered By: Marixa Haque on 07-30-2023 Clarity (U) Clear Clear [facility] Urine color determinationOrd ered By: Tony Haque on 07-30-2023 Color (U) Yellow Yellow [facility] Urine glucose detectionOrder ed By: Tony Haque on 07-30-2023 Glucose Ql (U) Normal mg/dl Normal [facility] Urine leukocyte esterase det ection by dipstickOrdered By: Tony Haque on 07-30-2023 Leukocyte esterase Test strip Ql (U) 25 /ul Negative [facility] Urine pHOrdered By: Tony mariscal on 07-30-2023 pH (U) 5.0 [pH] 5.0 - 8.0 [facility] Urine phencyclidine (PCP) de tectionOrdered By: Tony Haque on 07-30-2023 Phencyclidine Ql (U) Negative < 25 ng/mL [facility] Urine sediment bacteria coun t by microscopy (number/high power field)Ordered By: Tony Haque on 07-30-2023 Bacteria LM.HPF (Urine sed) [#/Area] 0 /[HPF] None Seen [facility] Urine specific gravity measu rementOrdered By: Tony Haque on 07-30-2023 Specific gravity (U) [Rel density] 1.020 1.002-1.03 0 [facility] Urine urobilinogen measureme ntOrdered By: Tony Haque on 07-30-2023 Urobilinogen Ql (U) 1 mg/dl Normal [facility] Venous Blood Gason Blood Gas Type PEYTON Normal [facility] Comment on above: Performed By: #### L 9000.0810 ####[facility] [address] [place], [address] CO2 [Moles/Vol] 23 mmol/L Normal 23-33 [facility] Comment on above: Performed By: #### L 8999.0810 ####[facility] [address] [place], [address] FI02 21.0 Normal [facility] Comment on above: Performed By: #### L 9000.0810 ####[facility] [address] [place], [address] HCO3 (Bld) [Moles/Vol] 22 mmol/L Normal 22-26 [facility] Comment on above: Performed By: #### L 9000.0810 ####[facility] [address] [place], [address] O2 Delivery Dev Not entered Normal [facility] Comment on above: Performed By: #### L 0.0810 ####[facility] [address] [place], [address] SITE Not entered Normal [facility] Comment on above: Performed By: #### L 0.0810 ####[facility] [address] [place], [address] VBG BE -2 mmol/L Low -1.0-3.5 [facility] Comment on above: Performed By: #### L 9000.0810 ####[facility] [address] [place], [address] VBG pCO2 29.8 mmHg Low 41-51 [facility] Comment on above: Performed By: #### L 9000.0810 ####[facility] [address] [place], [address] VBG pH 7.47 High 7.32-7.42 [facility] Comment on above: Performed By: #### L 9000.0810 ####[facility] [address] [place], [address] VBG PO2 73 mmHg High 25-40 [facility] Comment on above: Performed By: #### L 9000.0810 ####[facility] [address] [place], [address] VBG SO2 96 High 50-70 [facility] Comment on above: Performed By: #### L 9000.0810 ####[facility] [address] [place], [address] Venous blood pH measurementO rdered By: Guilherme Collins on 07-30-2023 pH (BldV) 7.47 [pH] 7.32-7.42 [facility] Vital signsOrdered By: Guilherme Collins on 07-30-2023 Oxygen saturation in Blood 96 % 50-70 [facility] Abd Inc Decub and/or Erecton 07-27-2023 Abd Inc Decub and/or Erect Normal [facility] Absolute lymphocyte countOrd ered By: Harish Luis on 07-11-2023 Lymphocytes Auto (Unsp spec) [#/Vol] 1.63 10*3/uL 0.83-4.51 [facility] Automated lymphocyte count a s percentage of total leukocytesOrdered By: Harish Luis on 07-11-2023 Lymphocytes/100 WBC Auto (Unsp spec) 26.4 % 19-41 [facility] Basophil percentageOrdered B y: Harish Luis on 07-11-2023 Basophils/100 WBC (Bld) 1.0 % 0-1 [facility] Bilirubin [Mass/Vol] 0.40 mg/dL 0.20-1.00 [facility] Comment on above: For patients on eltr ombopag therapy, use of Dimension [place] TBIL is not recommended. Chloride [Moles/Vol] 109 mmol/L 98-107 [facility] Cholesterol [Mass/Vol] 314 mg/dL <200 [facility] Comment on above: <200 mg/dL Desirable 200-240 mg/dL Borderline >240 mg/dL High Risk Eosinophils/100 WBC (Bld) 2.3 % 0-5 [facility] Glucose [Mass/Vol] 114 mg/dL 74-106 [facility] Comment on above: Fasting Glucose resu lt from 100 to 125 mg/dL suggests IMPAIRED HOMEOSTASIS per A.D.A. criteria. Hemoglobin (Bld) [Mass/Vol] 12.9 g/dL 12.0-15.0 [facility] Monocytes/100 WBC (Bld) 6.5 % 0-10 [facility] Neutrophils (Bld) [#/Vol] 3.9 10*3/uL 2.0-7.7 [facility] Neutrophils/100 WBC (Bld) 63.3 % 47-70 [facility] Potassium [Moles/Vol] 3.6 mmol/L 3.5-5.1 [facility] Protein [Mass/Vol] 7.2 g/dL 6.4-8.2 [facility] Sodium [Moles/Vol] 141 mmol/L 136-145 [facility] Triglyceride [Mass/Vol] 135 mg/dL <199 [facility] Comment on above: The drugs N-Acetylcy steine and Metamizole may falsely depress this assay.Serum Triglycerides Reference Interval Normal <150 mg/dL Borderline high 150 - 199 mg/dL High 200 - 499 mg/dL Very High > or = 500 mg/dL WBC (Bld) [#/Vol] 6.2 10*3/uL 4.4-11.0 [facility] Determination of erythrocyte mean corpuscular volume (MCV)Ordered By: [facility] on 07-11-2023 MCV (RBC) [Entitic vol] 97.6 fL 81-99 [facility] Erythrocyte distribution wid th ratioOrdered By: [facility] on 07-11-2023 Erythrocyte distribution width (RBC) [Ratio] 14.1 % 11.6-14.6 [facility] Erythrocyte distribution wid th standard deviationOrdered By: [facility] on 07-11-2023 Erythrocyte distribution width (RBC) [Entitic vol] 51.5 fL 35.1-43.9 [facility] Hematocrit Auto (Bld) [Volum e fraction]Ordered By: [facility] on 07-11-2023 Hematocrit (Bld) [Volume fraction] 40.7 % 37-47 [facility] Immature granulocytes/100 WB C Auto (Bld)Ordered By: [facility] 07-11-2023 Immature granulocytes/100 WBC (Bld) 0.500 % 0.0-0.9 [facility] Comment on above: IG% - Immature Granu locytes (promyelocytes, myelocytes and metamyelocytes) > 1% indicates that a LEFT SHIFT is Present. Laboratory - Chemistry and C hemistry - challengeOrdered By: [facility] on 07-11-2023 Albumin/Globulin [Mass ratio] 0.8 {ratio} 0.9-2.4 [facility] ALP [Catalytic activity/Vol] 103 U/L 45-117 [facility] ALT [Catalytic activity/Vol] 26 U/L 13-56 [facility] Cholesterol in HDL [Mass/Vol] 79 mg/dL >40 [facility] Comment on above: The drugs N-Acetylcy steine and Metamizole may falsely depress this assay. Reference Range HDL <40 mg/dL Low HDL Cholesterol HDL >or= 60 mg/dL High HDL Cholesterol Cholesterol in LDL [Mass/Vol] 208 mg/dL 0-130 [facility] CO2 [Moles/Vol] 26.0 mmol/L 21.0-32.0 [facility] Globulin (S) [Mass/Vol] 4.1 g/dL 2.2-4.2 [facility] Urea nitrogen/Creatinine [Mass ratio] 8.4 mg/mg 10-20 [facility] Laboratory - Hematology and Cell countsOrdered By: Harish Luis on 07-11-2023 MCH (RBC) [Entitic mass] 30.9 pg 27.0-32.0 [facility] MCHC (RBC) [Mass/Vol] 31.7 g/dL 32-36 [facility] Nucleated RBC/100 WBC (Bld) [Ratio] 0 % 0-5 [facility] Platelet mean volume (Bld) [Entitic vol] 9.7 fL 6.2-12.0 [facility] Platelets (Bld) [#/Vol] 433 10*3/uL 150-450 [facility] No Panel InformationOrdered By: Harish Luis on 07-11-2023 Estimated GFR (MDRD) Amer 74 mL/min >60 [facility] Comment on above: GFR Calc Estimated GFR (MDRD) Non-Af Amer 61 mL/min >60 [facility] Comment on above: Non- GFR Calc Vitamin D 25-Hydroxy 24.5 ng/mL [facility] Comment on above: Vitamin D 25(OH) Sta tus Range Deficiency <20 ng/mL (50nmol/L) Insufficiency 20 - 30 ng/mL (50 - 75 nmol/L) Sufficiency 30 - 100 ng/mL (75 - 250 nmol/L) Toxicity >100 ng/mL (>250 nmol/L) VLDL Cholesterol 27 mg/dL 5-40 [facility] RBC Auto (Bld) [#/Vol]Ordere d By: Harish Luis on 07-11-2023 RBC (Bld) [#/Vol] 4.17 10*6/uL 4.2-5.4 [facility] Serum or plasma calcium rosangela urement (mass/volume)Ordered By: Harish Luis on 07-11-2023 Calcium [Mass/Vol] 8.8 mg/dL 8.5-10.1 [facility] Serum or plasma creatinine m easurement (mass/volume)Ordered By: Harish Luis on 07-11-2023 Creatinine [Mass/Vol] 0.96 mg/dL 0.55-1.02 [facility] Comment on above: The validity of the calculated GFR & GFRAA in patients over 70 years has not been determined. Clinical correlation is essential. Serum or plasma thyroid stim ulating hormone (TSH) measurement (units/volume)Ordered By: Harish Luis on 07-11-2023 TSH Qn 0.92 uIU/mL 0.358-3.74 [facility] Serum or plasma urea nitroge n measurement (mass/volume)Ordered By: Harish Luis on 07-11-2023 Urea nitrogen [Mass/Vol] 8 mg/dL 7-18 [facility] Thin prep Papanicolaou smear with manual screeningOrdered By: Harish Luis on 07-11-2023 Thin prep Papanicolaou smear with manual screening 3.1 g/dL 3.2-5.0 [facility] Thin prep Papanicolaou smear with manual screening 18 U/L 15-37 [facility] Thin prep Papanicolaou smear with manual screening 6 5-15 [facility] Culture, urineOrdered By: Levar Luis on 06-27-2023 Bacteria identified Cx Nom (U) Staphylococcus simulans [facility] Absolute lymphocyte countOrd ered By: Harish Luis on 01-01-2023 Lymphocytes Auto (Unsp spec) [#/Vol] 1.14 10*3/uL 0.83-4.51 [facility] Basophil percentageOrdered B y: Harish Luis on 01-01-2023 Basophils/100 WBC (Bld) 0.8 % 0-1 [facility] Bilirubin [Mass/Vol] 0.40 mg/dL 0.20-1.00 [facility] Comment on above: For patients on eltr ombopag therapy, use of Dimension [place] TBIL is not recommended. Chloride [Moles/Vol] 113 mmol/L 98-107 [facility] Eosinophils/100 WBC (Bld) 1.7 % 0-5 [facility] Glucose [Mass/Vol] 124 mg/dL 74-106 [facility] Comment on above: Fasting Glucose resu lt from 100 to 125 mg/dL suggests IMPAIRED HOMEOSTASIS per A.D.A. criteria. Neutrophils (Bld) [#/Vol] 4.5 10*3/uL 2.0-7.7 [facility] Neutrophils/100 WBC (Bld) 72.0 % 47-70 [facility] Potassium [Moles/Vol] 3.3 mmol/L 3.5-5.1 [facility] Protein [Mass/Vol] 6.4 g/dL 6.4-8.2 [facility] Sodium [Moles/Vol] 144 mmol/L 136-145 [facility] WBC (Bld) [#/Vol] 6.3 10*3/uL 4.4-11.0 [facility] Blood erythrocytes count (nu mber/volume)Ordered By: Harish Luis on 01-01-2023 RBC (Bld) [#/Vol] 3.99 10*6/uL 4.2-5.4 [facility] Blood hemoglobin measurement (mass/volume)Ordered By: Harish Luis on 01-01-2023 Hemoglobin (Bld) [Mass/Vol] 12.7 g/dL 12.0-15.0 [facility] Blood lymphocytes/100 leukoc ytesOrdered By: Harish Luis on 01-01-2023 Lymphocytes/100 WBC (Bld) 18.1 % 19-41 [facility] Blood monocytes/100 leukocyt esOrdered By: Harish Luis on 01-01-2023 Monocytes/100 WBC (Bld) 7.2 % 0-10 [facility] Blood platelet mean volumeOr dered By: Harish Luis on 01-01-2023 Platelet mean volume (Bld) [Entitic vol] 10.2 fL 6.2-12.0 [facility] Determination of erythrocyte mean corpuscular volume (MCV)Ordered By: Harish Luis on 01-01-2023 MCV (RBC) [Entitic vol] 96.7 fL 81-99 [facility] Hematocrit Auto (Bld) [Volum e fraction]Ordered By: Harish Luis on 01-01-2023 Hematocrit (Bld) [Volume fraction] 38.6 % 37-47 [facility] Laboratory - Chemistry and C hemistry - challengeOrdered By: Harish Luis on 01-01-2023 ALP [Catalytic activity/Vol] 106 U/L 45-117 [facility] ALT [Catalytic activity/Vol] 14 U/L 13-56 [facility] CO2 [Moles/Vol] 22.0 mmol/L 21.0-32.0 [facility] Globulin (S) [Mass/Vol] 3.6 g/dL 2.2-4.2 [facility] Urea nitrogen/Creatinine [Mass ratio] 8.0 mg/mg 10-20 [facility] Laboratory - Hematology and Cell countsOrdered By: Harish Luis on 01-01-2023 Erythrocyte distribution width (RBC) [Entitic vol] 49.0 fL 35.1-43.9 [facility] Erythrocyte distribution width (RBC) [Ratio] 13.7 % 11.6-14.6 [facility] Immature granulocytes/100 WBC (Bld) 0.200 % 0.0-0.9 [facility] Comment on above: IG% - Immature Granu locytes (promyelocytes, myelocytes and metamyelocytes) > 1% indicates that a LEFT SHIFT is Present. MCH (RBC) [Entitic mass] 31.8 pg 27.0-32.0 [facility] Nucleated RBC/100 WBC (Bld) [Ratio] 0 % 0-5 [facility] MCHC Auto (RBC) [Mass/Vol]Or dered By: Harish Luis on 01-01-2023 MCHC (RBC) [Mass/Vol] 32.9 g/dL 32-36 [facility] No Panel InformationOrdered By: Harish Luis on 01-01-2023 Estimated GFR (MDRD) Amer 61 mL/min >60 [facility] Comment on above: GFR Calc Estimated GFR (MDRD) Non-Af Amer 51 mL/min >60 [facility] Comment on above: Non- GFR Calc Thyroid Stimulating Hormone (TSH) 0.17 uIU/mL 0.358-3.74 [facility] Vitamin D 25-Hydroxy 39.2 ng/mL [facility] Comment on above: Vitamin D 25(OH) Sta tus Range Deficiency <20 ng/mL (50nmol/L) Insufficiency 20 - 30 ng/mL (50 - 75 nmol/L) Sufficiency 30 - 100 ng/mL (75 - 250 nmol/L) Toxicity >100 ng/mL (>250 nmol/L) Platelets bldOrdered By: Harish Luis on 01-01-2023 Platelets (Bld) [#/Vol] 345 10*3/uL 150-450 [facility] Serum or plasma albumin rosangela urement (mass/volume)Ordered By: Harish Luis on 01-01-2023 Albumin [Mass/Vol] 2.8 g/dL 3.2-5.0 [facility] Serum or plasma albumin/glob ulin mass ratioOrdered By: Harish Luis on 01-01-2023 Albumin/Globulin [Mass ratio] 0.8 {ratio} 0.9-2.4 [facility] Serum or plasma calcium rosangela urement (mass/volume)Ordered By: Harish Luis on 01-01-2023 Calcium [Mass/Vol] 8.5 mg/dL 8.5-10.1 [facility] Serum or plasma creatinine m easurement (mass/volume)Ordered By: Harish Luis on 01-01-2023 Creatinine [Mass/Vol] 1.12 mg/dL 0.55-1.02 [facility] [facility] Comment on above: The validity of the calculated GFR & GFRAA in patients over 70 years has not been determined. Clinical correlation is essential. Serum or plasma urea nitroge n measurement (mass/volume)Ordered By: Harish Luis on 01-01-2023 Urea nitrogen [Mass/Vol] 9 mg/dL 7-18 [facility] Thin prep Papanicolaou smear with manual screeningOrdered By: Harish Luis on 01-01-2023 Thin prep Papanicolaou smear with manual screening 12 U/L 15-37 [facility] Thin prep Papanicolaou smear with manual screening 9 5-15 [facility] Basophil percentageOrdered B y: Jesse Camejo on 11-04-2022 Chloride [Moles/Vol] 117 mmol/L 98-107 [facility] Glucose [Mass/Vol] 105 mg/dL 74-106 [facility] Comment on above: Fasting Glucose resu lt from 100 to 125 mg/dL suggests IMPAIRED HOMEOSTASIS per A.D.A. criteria. Potassium [Moles/Vol] 3.4 mmol/L 3.5-5.1 [facility] Sodium [Moles/Vol] 145 mmol/L 136-145 [facility] Laboratory - Chemistry and C hemistry - challengeOrdered By: Jesse Camejo on 11-04-2022 CO2 [Moles/Vol] 24.0 mmol/L 21.0-32.0 [facility] Urea nitrogen/Creatinine [Mass ratio] 6.3 mg/mg 10-20 [facility] No Panel InformationOrdered By: Jesse Camejo on 11-04-2022 Estimated Creatinine Clearance Calc 39.02 ml/min [facility] Estimated GFR (MDRD) Amer 119 mL/min >60 [facility] Comment on above: GFR Calc Estimated GFR (MDRD) Non-Af Amer 98 mL/min >60 [facility] Comment on above: Non- GFR Calc Serum or plasma calcium rosangela urement (mass/volume)Ordered By: Jesse Camejo on 11-04-2022 Calcium [Mass/Vol] 8.3 mg/dL 8.5-10.1 [facility] Serum or plasma creatinine m easurement (mass/volume)Ordered By: Jesse Camejo on 11-04-2022 Creatinine [Mass/Vol] 0.63 mg/dL 0.55-1.02 [facility] Comment on above: The validity of the calculated GFR & GFRAA in patients over 70 years has not been determined. Clinical correlation is essential. Serum or plasma urea nitroge n measurement (mass/volume)Ordered By: Jesse Camejo on 11-04-2022 Urea nitrogen [Mass/Vol] 4 mg/dL -18 [facility] Thin prep Papanicolaou smear with manual screeningOrdered By: Jesse Camejo on 11-04-2022 Thin prep Papanicolaou smear with manual screening 4 5-15 [facility] Absolute lymphocyte countOrd ered By: Jesse Camejo on 11-03-2022 Lymphocytes Auto (Unsp spec) [#/Vol] 1.21 10*3/uL 0.83-4.51 [facility] Basophil percentageOrdered B y: Jesse Camejo on 11-03-2022 Basophils/100 WBC (Bld) 1.3 % 0-1 [facility] Eosinophils/100 WBC (Bld) 4.8 % 0-5 [facility] Neutrophils (Bld) [#/Vol] 1.9 10*3/uL 2.0-7.7 [facility] Neutrophils/100 WBC (Bld) 50.2 % 47-70 [facility] WBC (Bld) [#/Vol] 3.8 10*3/uL 4.4-11.0 [facility] Blood erythrocytes count (nu mber/volume)Ordered By: Jesse Camejo on 11-03-2022 RBC (Bld) [#/Vol] 3.66 10*6/uL 4.2-5.4 [facility] Blood hemoglobin measurement (mass/volume)Ordered By: Jesse Camejo on 11-03-2022 Hemoglobin (Bld) [Mass/Vol] 11.5 g/dL 12.0-15.0 [facility] Blood lymphocytes/100 leukoc ytesOrdered By: Jesse Camejo on 11-03-2022 Lymphocytes/100 WBC (Bld) 32.0 % 19-41 [facility] Blood monocytes/100 leukocyt esOrdered By: Jesse Camejo on 11-03-2022 Monocytes/100 WBC (Bld) 11.4 % 0-10 [facility] Blood platelet mean volumeOr dered By: Jesse Camejo on 11-03-2022 Platelet mean volume (Bld) [Entitic vol] 9.4 fL 6.2-12.0 [facility] Determination of erythrocyte mean corpuscular volume (MCV)Ordered By: Jesse Camejo on 11-03-2022 MCV (RBC) [Entitic vol] 98.6 fL 81-99 [facility] Hematocrit Auto (Bld) [Volum e fraction]Ordered By: Jesse Camejo on 11-03-2022 Hematocrit (Bld) [Volume fraction] 36.1 % 37-47 [facility] INR in Blood by Coagulation assayOrdered By: Ken Johnston on 11-03-2022 INR Coag (Bld) [Relative time] 1.1 {INR} [facility] Laboratory - CoagulationOrde red By: Ken Johnston on 11-03-2022 aPTT Coag (Bld) [Time] 41.4 s 24.1-36.2 [facility] Coag (PPP) [Time] 14.7 s 11.7-14.9 [facility] Laboratory - Hematology and Cell countsOrdered By: Jesse Camejo on 11-03-2022 Erythrocyte distribution width (RBC) [Entitic vol] 50.4 fL 35.1-43.9 [facility] Erythrocyte distribution width (RBC) [Ratio] 13.9 % 11.6-14.6 [facility] Immature granulocytes/100 WBC (Bld) 0.300 % 0.0-0.9 [facility] Comment on above: IG% - Immature Granu locytes (promyelocytes, myelocytes and metamyelocytes) > 1% indicates that a LEFT SHIFT is Present. MCH (RBC) [Entitic mass] 31.4 pg 27.0-32.0 [facility] Nucleated RBC/100 WBC (Bld) [Ratio] 0 % 0-5 [facility] MCHC Auto (RBC) [Mass/Vol]Or dered By: Jesse Camejo on 11-03-2022 MCHC (RBC) [Mass/Vol] 31.9 g/dL 32-36 [facility] Platelets bldOrdered By: Eagle Camejo on 11-03-2022 Platelets (Bld) [#/Vol] 368 10*3/uL 150-450 [facility] Basophil percentageOrdered B y: Helena Ann on 11-02-2022 Basophil percentage 2.7 mg/dL 2.5-4.9 [facility] Laboratory - Chemistry and C hemistry - challengeOrdered By: Helena Ann on 11-02-2022 Magnesium [Mass/Vol] 2.2 mg/dL 1.6-2.6 [facility] Absolute lymphocyte countOrd ered By: Armando Miranda on 11-01-2022 Lymphocytes Auto (Unsp spec) [#/Vol] 1.37 10*3/uL 0.83-4.51 [facility] Assessment of wrist artery p atency prior to arterial punctureOrdered By: Armando Miranda on 11-01-2022 Arterial patency Wrist artery --pre arterial puncture Positive [facility] Bacterial cerebrospinal flui d cultureOrdered By: Helena Ann on 11-01-2022 Bacteria identified Cx Nom (CSF) No growth in 72 hours. [facility] Base excessOrdered By: Garrett Miranda on 08-16-2023 Base excess Calc (BldV) [Moles/Vol] -3 mmol/L -2-2 [facility] Basophil percentageOrdered B y: Armando Miranda on 11-01-2022 Basophil percentage 23.0 mmol/L 22-26 [facility] Basophils/100 WBC (Bld) 96 % 95-99 [facility] Basophil percentage 0 SEEN /hpf 0-5 [facility] Lactate [Moles/Vol] 0.9 mmol/L 0.4-2.0 [facility] Basophils/100 WBC (Bld) 1.9 % 0-1 [facility] Bilirubin [Mass/Vol] 0.40 mg/dL 0.20-1.00 [facility] Comment on above: For patients on eltr ombopag therapy, use of Dimension [place] TBIL is not recommended. Chloride [Moles/Vol] 114 mmol/L 98-107 [facility] Eosinophils/100 WBC (Bld) 5.0 % 0-5 [facility] Glucose [Mass/Vol] 100 mg/dL 74-106 [facility] Comment on above: Fasting Glucose resu lt from 100 to 125 mg/dL suggests IMPAIRED HOMEOSTASIS per A.D.A. criteria. Neutrophils (Bld) [#/Vol] 1.6 10*3/uL 2.0-7.7 [facility] Neutrophils/100 WBC (Bld) 44.7 % 47-70 [facility] Potassium [Moles/Vol] 3.7 mmol/L 3.5-5.1 [facility] Protein [Mass/Vol] 6.9 g/dL 6.4-8.2 [facility] Sodium [Moles/Vol] 144 mmol/L 136-145 [facility] WBC (Bld) [#/Vol] 3.6 10*3/uL 4.4-11.0 [facility] Basophil percentageOrdered B y: Helena Ann on 11-01-2022 Ammonia (P) [Moles/Vol] 11.0 umol/L 11-32 [facility] Bilirubin Test strip Ql (U)O rdered By: Armando Miranda on 11-01-2022 Bilirubin Ql (U) Negative Negative [facility] Blood erythrocytes count (nu mber/volume)Ordered By: Armando Miranda on 11-01-2022 RBC (Bld) [#/Vol] 3.87 10*6/uL 4.2-5.4 [facility] Blood hemoglobin measurement (mass/volume)Ordered By: Armando Miranda on 11-01-2022 Hemoglobin (Bld) [Mass/Vol] 12.2 g/dL 12.0-15.0 [facility] Blood lymphocytes/100 leukoc ytesOrdered By: Armando Miranda on 11-01-2022 Lymphocytes/100 WBC (Bld) 38.1 % 19-41 [facility] Blood monocytes/100 leukocyt esOrdered By: Armando Miranda on 11-01-2022 Monocytes/100 WBC (Bld) 10.0 % 0-10 [facility] Blood platelet mean volumeOr dered By: Armando Miranda on 11-01-2022 Platelet mean volume (Bld) [Entitic vol] 9.9 fL 6.2-12.0 [facility] CO2 (BldA) [Partial pressure ]Ordered By: Armando Miranda on 11-01-2022 CO2 (Bld) [Partial pressure] 41.6 mm[Hg] 35-45 [facility] Cerebrospinal fluid SARAH virus DNA detection by probe and target amplification methodOrdered By: Helena Ann on 11-01-2022 SARAH virus DNA ANTIONE+probe Ql (CSF) See comment [facility] Comment on above: Result: NegativeNo J CV DNA detectedThis test was developed and its performance characteristicsdetermined by [facility]. It has not been cleared or approvedby the Food and Drug Administration. The FDA hasdetermined that such clearance or approval is notnecessary.Performed at: [address] [id number] Director: Kody Garcia MD, Phone: [phone] Cerebrospinal fluid appearan ce descriptionOrdered By: Helena Ann on 11-01-2022 Appearance (CSF) CLEAR Clear [facility] Cerebrospinal fluid cell cou ntOrdered By: Helena Ann on 11-01-2022 Cell count panel (CSF) TNP [facility] Comment on above: Test not performed Cerebrospinal fluid color id entificationOrdered By: Helena Ann on 11-01-2022 Color (CSF) COLORLESS Colorless [facility] Cerebrospinal fluid glucose measurement (mass/volume)Ordered By: Helena Ann on 11-01-2022 Glucose (CSF) [Mass/Vol] 62 mg/dL 40-75 [facility] Cerebrospinal fluid white bl ood cell countOrdered By: Helena Ann on 11-01-2022 WBC (CSF) [#/Vol] 0 /mm-3 0-5 [facility] Cytology report of Body flui d Cyto stainOrdered By: Helena Ann on 11-01-2022 Cytology report Cyto stain Doc (Body fld) SEE PATHOLOGY REPORT [facility] Comment on above: Specimen submitted t o Anatomical Pathology Department for testing. Determination of erythrocyte mean corpuscular volume (MCV)Ordered By: Armando Miranda on 11-01-2022 MCV (RBC) [Entitic vol] 99.5 fL 81-99 [facility] Gram stain for investigation of transfusion reactionOrdered By: Helena Ann on 11-01-2022 Microscopic observation Gram stain Nom (Unsp spec) [facility] Hematocrit Auto (Bld) [Volum e fraction]Ordered By: Armando Miranda on 11-01-2022 Hematocrit (Bld) [Volume fraction] 38.5 % 37-47 [facility] Herpes simplex virus 1+2 DNA detection by probe and target amplification methodOrdered By: Helena Ann on 11-01-2022 HSV 1+2 DNA ANTIONE+probe Ql (Unsp spec) Negative Negative [facility] Influenza virus A and B and SARS-CoV-2 (COVID-19) Ag panel - Upper respiratory specimOrdered By: Armando Miranda on 11-01-2022 SARS-CoV-2 & FLU Antigen (Rapid) Influenzae B [facility] SARS-CoV-2 (COVID-19) RNA ANTIONE+probe Ql (Resp) [facility] Ketones Test strip Ql (U)Ord ered By: Armando Miranda on 11-01-2022 Ketones Ql (U) Negative Negative [facility] Laboratory - Chemistry and C hemistry - challengeOrdered By: Armando Miarnda on 11-01-2022 ALP [Catalytic activity/Vol] 97 U/L 45-117 [facility] ALT [Catalytic activity/Vol] 30 U/L 13-56 [facility] CK [Catalytic activity/Vol] 211 U/L 26-192 [facility] CO2 [Moles/Vol] 25.0 mmol/L 21.0-32.0 [facility] Globulin (S) [Mass/Vol] 4.3 g/dL 2.2-4.2 [facility] Lipase [Catalytic activity/Vol] 21 U/L 13-75 [facility] Comment on above: Please note:LIPASE r evised reference range effective 22. New Lipase methodology. Expected to produce lower values than the previous assay method. NEW Reference Range: 13 - 75 U/L Urea nitrogen/Creatinine [Mass ratio] 11.4 mg/mg 10-20 [facility] Laboratory - Chemistry and C hemistry - challengeOrdered By: Helena Ann on 11-01-2022 Free T4 [Mass/Vol] 1.18 ng/dL 0.76-1.46 [facility] Laboratory - Drug toxicology Ordered By: Armando Miranda on 11-01-2022 Amphetamines Ql (U) Negative <1000 ng/mL [facility] Benzodiazepines Ql (U) Negative < 200 ng/mL [facility] Cannabinoids Screen Ql (U) Negative < 50 ng/mL [facility] Cocaine Ql (U) Negative < 300 ng/mL [facility] Opiates Ql (U) Negative < 300 ng/mL [facility] Laboratory - Hematology and Cell countsOrdered By: Armando Miranda on 11-01-2022 Erythrocyte distribution width (RBC) [Entitic vol] 52.0 fL 35.1-43.9 [facility] Erythrocyte distribution width (RBC) [Ratio] 14.3 % 11.6-14.6 [facility] Immature granulocytes/100 WBC (Bld) 0.300 % 0.0-0.9 [facility] Comment on above: IG% - Immature Granu locytes (promyelocytes, myelocytes and metamyelocytes) > 1% indicates that a LEFT SHIFT is Present. MCH (RBC) [Entitic mass] 31.5 pg 27.0-32.0 [facility] Nucleated RBC/100 WBC (Bld) [Ratio] 0 % 0-5 [facility] Laboratory - Specimen inform ationOrdered By: Helena Ann on 11-01-2022 Tube number Nom (CSF) [ID] 3 [facility] MCHC Auto (RBC) [Mass/Vol]Or dered By: Armando Miranda on 11-01-2022 MCHC (RBC) [Mass/Vol] 31.7 g/dL 32-36 [facility] Mononuclear cells Auto (Body fld) [#/Vol]Ordered By: Helena Ann on 11-01-2022 Mononuclear cells (Body fld) [#/Vol] 0.000 10*3/uL [facility] Mucus LM Ql (Urine sed)Order ed By: Armando Miranda on 11-01-2022 Mucus Ql (Urine sed) 0 SEEN /hpf [facility] Nitrite Test strip Ql (U)Ord ered By: Armando Miranda on 11-01-2022 Nitrite Ql (U) Negative Negative [facility] No Panel InformationOrdered By: Helena Ann on 11-01-2022 Body Fluid Mononuclear WBCs (%) 0.0 % [facility] Body Fluid Polynuclear WBCs (#) 0.001 10^3/uL [facility] Body Fluid Polynuclear WBCs (%) 100.0 % [facility] CSF RBC 49 /mm-3 None seen [facility] CSF Total Protein 43.0 mg/dL 15.0-45.0 [facility] Herpes Simplex Virus II DNA (PCR) Negative Negative [facility] No Panel InformationOrdered By: Armando Miranda on 11-01-2022 Blood Gas Sample Site L Radial [facility] Blood Gas Specimen Type ART [facility] Blood Gas Total CO2 24 mmol/L [facility] Oxygen Delivery Device Room Air [facility] MDMA (Ecstasy) Screen Positive < 500 ng/mL [facility] Urine Barbiturates Screen Negative < 200 ng/mL [facility] Urine Drug Screen Comment [facility] Comment on above: CONFIRMATORY TESTING FOR ALL POSITIVE URINE DRUG SCREENRESULTS WILL ONLY BE SENT OUT UPON PHYSICIAN ORDER. VISTA Urine Drug Screen methods provide only preliminaryanalytical test results. A more specific alternate chemicalmethod must be used in order to obtain a confirmedanalytical result. Gas chromatography/mass spectrometery(GC/MS) is the preferred confirmatory method. Clinicalconsideration and professional judgement should be appliedto any drug of abuse test result, particularly whenpreliminary positive results are used. URINE TCA TESTING MUST BE ORDERED SEPARATELY. USE TESTMNEMONIC: [facility] Urine Methadone Screen Negative < 300 ng/mL [facility] Estimated Creatinine Clearance Calc 45.70 ml/min [facility] Estimated GFR (MDRD) Amer 81 mL/min >60 [facility] Comment on above: GFR Calc Estimated GFR (MDRD) Non-Af Amer 67 mL/min >60 [facility] Comment on above: Non- GFR Calc Ethyl Alcohol Level < 3.0 mg/dL [facility] Comment on above: The serum:whole bloo d ethanol ratio is approximately 1.14and varies slightly with hematocrit. Medical Alcohol reference interval and critical value innon-tolerant individuals; 50 - 100 Impairment 100 Intoxication 100 - 250 Severe Poisoning 250 - 400 Deep/possible fatal coma Thyroid Stimulating Hormone (TSH) 0.09 uIU/mL 0.358-3.74 [facility] Troponin I High Sensitivity 4 pg/mL 3.0-54.0 [facility] Comment on above: Please Note: New Nu t Units and Gender Specific Reference Ranges. For more information see Policy Stat Procedure [place] High Sensitivity Troponin (TNIH) and attachments. Oxygen (BldA) [Partial press ure]Ordered By: Armando Miranda on 11-01-2022 Oxygen (Bld) [Partial pressure] 86 mmHG 75-100 [facility] Platelets bldOrdered By: Yudith Miranda on 11-01-2022 Platelets (Bld) [#/Vol] 399 10*3/uL 150-450 [facility] Protein Test strip Ql (U)Ord ered By: Armando Miranda on 11-01-2022 Protein Ql (U) Negative Negative [facility] Review by pathologistOrdered By: Helena Ann on 11-01-2022 Pathologist review [place] (Unsp spec) [Interp] Reviewed [facility] Comment on above: Previous reported re sult: May follow Edited by: RGOOD on 11/02/22:1301Negative for malignant cells.Erik Manjarrez D.O. 11/02/22 AMENDED REPORT 11/02/22 1301 PATH REV previously reported as: May follow Serum or plasma albumin rosangela urement (mass/volume)Ordered By: Armando Miranda on 11-01-2022 Albumin [Mass/Vol] 2.6 g/dL 3.2-5.0 [facility] Serum or plasma albumin/glob ulin mass ratioOrdered By: Armando Miranda on 11-01-2022 Albumin/Globulin [Mass ratio] 0.6 {ratio} 0.9-2.4 [facility] Serum or plasma calcium rosangela urement (mass/volume)Ordered By: Armando Miranda on 11-01-2022 Calcium [Mass/Vol] 9.0 mg/dL 8.5-10.1 [facility] Serum or plasma creatinine m easurement (mass/volume)Ordered By: Armando Miranda on 11-01-2022 Creatinine [Mass/Vol] 0.88 mg/dL 0.55-1.02 [facility] Comment on above: The validity of the calculated GFR & GFRAA in patients over 70 years has not been determined. Clinical correlation is essential. Serum or plasma urea nitroge n measurement (mass/volume)Ordered By: Armando Miranda on 11-01-2022 Urea nitrogen [Mass/Vol] 10 mg/dL 7-18 [facility] Squamous epithelial cells de tection in urine sediment by light microscopyOrdered By: Armando Miranda on 11-01-2022 Epithelial cells.squamous LM Ql (Urine sed) 0 SEEN /hpf 5-10 [facility] Thin prep Papanicolaou smear with manual screeningOrdered By: Armnado Miranda on 11-01-2022 Thin prep Papanicolaou smear with manual screening 19 U/L 15-37 [facility] Thin prep Papanicolaou smear with manual screening 5 5-15 [facility] Urine blood detectionOrdered By: Armando Miranda on 11-01-2022 RBC Ql (U) Negative Negative [facility] RBC Ql (U) 0 SEEN /hpf 0-5 [facility] Urine clarityOrdered By: Yudith Miranda on 11-01-2022 Clarity (U) Sl. Cloudy Clear [facility] Urine color determinationOrd ered By: Armando Miranda on 11-01-2022 Color (U) Yellow Yellow [facility] Urine glucose detectionOrder ed By: Armando Miranda on 11-01-2022 Glucose Ql (U) Normal mg/dl Normal [facility] Urine leukocyte esterase det ection by dipstickOrdered By: Armando Miranda on 11-01-2022 Leukocyte esterase Test strip Ql (U) Negative Negative [facility] Urine pHOrdered By: Armando ghotra on 11-01-2022 pH (U) 7.0 [pH] 5.0 - 8.0 [facility] Urine phencyclidine (PCP) de tectionOrdered By: Armando Miranda on 11-01-2022 Phencyclidine Ql (U) Negative < 25 ng/mL [facility] Urine sediment bacteria coun t by microscopy (number/high power field)Ordered By: Armando Miranda on 11-01-2022 Bacteria LM.HPF (Urine sed) [#/Area] 0 /[HPF] None Seen [facility] Urine specific gravity measu rementOrdered By: Armando Miranda on 11-01-2022 Specific gravity (U) [Rel density] 1.010 1.002-1.03 0 [facility] Urobilinogen Auto test strip Ql (U)Ordered By: Armando Miranda on 11-01-2022 Urobilinogen Ql (U) Normal mg/dl Normal [facility] pH measurementOrdered By: Patricia Miranda on 11-01-2022 pH (Unsp spec) 7.35 [pH] 7.35-7.45 [facility] Absolute lymphocyte countOrd ered By: Zia Posey on 10-14-2022 Lymphocytes Auto (Unsp spec) [#/Vol] 1.59 10*3/uL 0.83-4.51 [facility] Basophil percentageOrdered B y: Zia Posey on 10-14-2022 Basophils/100 WBC (Bld) 0.5 % 0-1 [facility] Chloride [Moles/Vol] 114 mmol/L 98-107 [facility] Eosinophils/100 WBC (Bld) 0.9 % 0-5 [facility] Glucose [Mass/Vol] 100 mg/dL 74-106 [facility] Comment on above: Fasting Glucose resu lt from 100 to 125 mg/dL suggests IMPAIRED HOMEOSTASIS per A.D.A. criteria. Neutrophils (Bld) [#/Vol] 3.6 10*3/uL 2.0-7.7 [facility] Neutrophils/100 WBC (Bld) 62.2 % 47-70 [facility] Potassium [Moles/Vol] 3.6 mmol/L 3.5-5.1 [facility] Sodium [Moles/Vol] 143 mmol/L 136-145 [facility] WBC (Bld) [#/Vol] 5.7 10*3/uL 4.4-11.0 [facility] Blood erythrocytes count (nu mber/volume)Ordered By: Zia Posey on 10-14-2022 RBC (Bld) [#/Vol] 3.15 10*6/uL 4.2-5.4 [facility] Blood hemoglobin measurement (mass/volume)Ordered By: Zia Posey on 10-14-2022 Hemoglobin (Bld) [Mass/Vol] 10.1 g/dL 12.0-15.0 [facility] Blood lymphocytes/100 leukoc ytesOrdered By: Zia Posey on 10-14-2022 Lymphocytes/100 WBC (Bld) 27.8 % 19-41 [facility] Blood monocytes/100 leukocyt esOrdered By: Zia Posey on 10-14-2022 Monocytes/100 WBC (Bld) 8.4 % 0-10 [facility] Blood platelet mean volumeOr dered By: Zia Posey on 10-14-2022 Platelet mean volume (Bld) [Entitic vol] 10.0 fL 6.2-12.0 [facility] [facility] Determination of erythrocyte mean corpuscular volume (MCV)Ordered By: Zia Posey on 10-14-2022 MCV (RBC) [Entitic vol] 97.1 fL 81-99 [facility] Hematocrit Auto (Bld) [Volum e fraction]Ordered By: Zia Posey on 10-14-2022 Hematocrit (Bld) [Volume fraction] 30.6 % 37-47 [facility] Laboratory - Chemistry and C hemistry - challengeOrdered By: Zia Posey on 10-14-2022 Cobalamin (Vitamin B12) [Mass/Vol] 312 pg/mL 211-911 [facility] Free T4 [Mass/Vol] 1.27 ng/dL 0.76-1.46 [facility] CO2 [Moles/Vol] 26.0 mmol/L 21.0-32.0 [facility] Urea nitrogen/Creatinine [Mass ratio] 8.1 mg/mg 10-20 [facility] Laboratory - Hematology and Cell countsOrdered By: Zia Posey on 10-14-2022 Erythrocyte distribution width (RBC) [Entitic vol] 49.1 fL 35.1-43.9 [facility] Erythrocyte distribution width (RBC) [Ratio] 13.7 % 11.6-14.6 [facility] Immature granulocytes/100 WBC (Bld) 0.200 % 0.0-0.9 [facility] Comment on above: IG% - Immature Granu locytes (promyelocytes, myelocytes and metamyelocytes) > 1% indicates that a LEFT SHIFT is Present. MCH (RBC) [Entitic mass] 32.1 pg 27.0-32.0 [facility] Nucleated RBC/100 WBC (Bld) [Ratio] 0 % 0-5 [facility] MCHC Auto (RBC) [Mass/Vol]Or dered By: Zia Posey on 10-14-2022 MCHC (RBC) [Mass/Vol] 33.0 g/dL 32-36 [facility] No Panel InformationOrdered By: Zia Posey on 10-14-2022 Vitamin D 25-Hydroxy 38.7 ng/mL [facility] Comment on above: Vitamin D 25(OH) Sta tus Range Deficiency <20 ng/mL (50nmol/L) Insufficiency 20 - 30 ng/mL (50 - 75 nmol/L) Sufficiency 30 - 100 ng/mL (75 - 250 nmol/L) Toxicity >100 ng/mL (>250 nmol/L) Estimated Creatinine Clearance Calc 39.90 ml/min [facility] Estimated GFR (MDRD) Amer 99 mL/min >60 [facility] Comment on above: GFR Calc Estimated GFR (MDRD) Non-Af Amer 82 mL/min >60 [facility] Comment on above: Non- GFR Calc Thyroid Stimulating Hormone (TSH) 0.04 uIU/mL 0.358-3.74 [facility] Platelets bldOrdered By: Elinor Posey on 10-14-2022 Platelets (Bld) [#/Vol] 247 10*3/uL 150-450 [facility] Serum or plasma calcium rosangela urement (mass/volume)Ordered By: Zia Posey on 10-14-2022 Calcium [Mass/Vol] 8.4 mg/dL 8.5-10.1 [facility] Serum or plasma creatinine m easurement (mass/volume)Ordered By: Zia Posey on 10-14-2022 Creatinine [Mass/Vol] 0.74 mg/dL 0.55-1.02 [facility] Comment on above: The validity of the calculated GFR & GFRAA in patients over 70 years has not been determined. Clinical correlation is essential. Serum or plasma folate measu rement (mass/volume)Ordered By: Zia Posey on 10-14-2022 Folate [Mass/Vol] 6.90 ng/mL 3.1-55.4 [facility] Serum or plasma urea nitroge n measurement (mass/volume)Ordered By: Zia Posey on 10-14-2022 Urea nitrogen [Mass/Vol] 6 mg/dL 7-18 [facility] Thin prep Papanicolaou smear with manual screeningOrdered By: Zia Posey on 10-14-2022 Thin prep Papanicolaou smear with manual screening 3 5-15 [facility] Absolute lymphocyte countOrd ered By: Sheyla Slade on 10-13-2022 Lymphocytes Auto (Unsp spec) [#/Vol] 1.13 10*3/uL 0.83-4.51 [facility] Basophil percentageOrdered B y: Sheyla Slade on 10-13-2022 Lactate [Moles/Vol] 0.8 mmol/L 0.4-2.0 [facility] Basophils/100 WBC (Bld) 0.2 % 0-1 [facility] Bilirubin [Mass/Vol] 0.30 mg/dL 0.20-1.00 [facility] Comment on above: For patients on eltr ombopag therapy, use of Dimension [place] TBIL is not recommended. Chloride [Moles/Vol] 112 mmol/L 98-107 [facility] Eosinophils/100 WBC (Bld) 0.0 % 0-5 [facility] Glucose [Mass/Vol] 91 mg/dL 74-106 [facility] Neutrophils (Bld) [#/Vol] 7.4 10*3/uL 2.0-7.7 [facility] Neutrophils/100 WBC (Bld) 78.3 % 47-70 [facility] Potassium [Moles/Vol] 3.5 mmol/L 3.5-5.1 [facility] Protein [Mass/Vol] 5.7 g/dL 6.4-8.2 [facility] Sodium [Moles/Vol] 143 mmol/L 136-145 [facility] WBC (Bld) [#/Vol] 9.4 10*3/uL 4.4-11.0 [facility] Basophil percentage 0 SEEN /hpf 0-5 [facility] Basophil percentage < 10.0 umol/L 11-32 [facility] Lactate [Moles/Vol] 2.5 mmol/L 0.4-2.0 [facility] Comment on above: Critical Result(s) C alled at: 14:29:10 10/13/2022 by: Stephanie Loera. Results read back by same. Basophil percentageOrdered B y: Zia Posey on 10-13-2022 Basophil percentage 3.1 mg/dL 2.5-4.9 [facility] Bilirubin Test strip Ql (U)O rdered By: Sheyla Slade on 10-13-2022 Bilirubin Ql (U) Negative Negative [facility] Blood erythrocytes count (nu mber/volume)Ordered By: Sheyla Slade on 10-13-2022 RBC (Bld) [#/Vol] 3.35 10*6/uL 4.2-5.4 [facility] Blood hemoglobin measurement (mass/volume)Ordered By: Sheyla Slade on 10-13-2022 Hemoglobin (Bld) [Mass/Vol] 10.3 g/dL 12.0-15.0 [facility] Blood lymphocytes/100 leukoc ytesOrdered By: Sheyla Slade on 10-13-2022 Lymphocytes/100 WBC (Bld) 12.0 % 19-41 [facility] Blood monocytes/100 leukocyt esOrdered By: Sheyla Slade on 10-13-2022 Monocytes/100 WBC (Bld) 9.2 % 0-10 [facility] Blood platelet mean volumeOr dered By: Sheyla Slade on 10-13-2022 Platelet mean volume (Bld) [Entitic vol] 9.8 fL 6.2-12.0 [facility] Determination of erythrocyte mean corpuscular volume (MCV)Ordered By: Sheyla Slade on 10-13-2022 MCV (RBC) [Entitic vol] 97.0 fL 81-99 [facility] Hematocrit Auto (Bld) [Volum e fraction]Ordered By: Sheyla Slade on 10-13-2022 Hematocrit (Bld) [Volume fraction] 32.5 % 37-47 [facility] Ketones Test strip Ql (U)Ord ered By: Sheyla Slade on 10-13-2022 Ketones Ql (U) Negative Negative [facility] Laboratory - Chemistry and C hemistry - challengeOrdered By: Zia Posey on 10-13-2022 Magnesium [Mass/Vol] 2.2 mg/dL 1.6-2.6 [facility] Laboratory - Chemistry and C hemistry - challengeOrdered By: Sheyla Slade on 10-13-2022 ALP [Catalytic activity/Vol] 86 U/L 45-117 [facility] ALT [Catalytic activity/Vol] 14 U/L 13-56 [facility] CO2 [Moles/Vol] 25.0 mmol/L 21.0-32.0 [facility] Globulin (S) [Mass/Vol] 3.3 g/dL 2.2-4.2 [facility] Urea nitrogen/Creatinine [Mass ratio] 10.3 mg/mg 10-20 [facility] Free T4 [Mass/Vol] 1.26 ng/dL 0.76-1.46 [facility] Laboratory - Hematology and Cell countsOrdered By: Sheyla Slade on 10-13-2022 Erythrocyte distribution width (RBC) [Entitic vol] 48.4 fL 35.1-43.9 [facility] Erythrocyte distribution width (RBC) [Ratio] 13.5 % 11.6-14.6 [facility] Immature granulocytes/100 WBC (Bld) 0.300 % 0.0-0.9 [facility] Comment on above: IG% - Immature Granu locytes (promyelocytes, myelocytes and metamyelocytes) > 1% indicates that a LEFT SHIFT is Present. MCH (RBC) [Entitic mass] 30.7 pg 27.0-32.0 [facility] Nucleated RBC/100 WBC (Bld) [Ratio] 0 % 0-5 [facility] MCHC Auto (RBC) [Mass/Vol]Or dered By: Sheyla Slade on 10-13-2022 MCHC (RBC) [Mass/Vol] 31.7 g/dL 32-36 [facility] Mucus LM Ql (Urine sed)Order ed By: Sheyla Slade on 10-13-2022 Mucus Ql (Urine sed) 0 SEEN /hpf [facility] Nitrite Test strip Ql (U)Ord ered By: Sheyla Slade on 10-13-2022 Nitrite Ql (U) Negative Negative [facility] No Panel InformationOrdered By: Sheyla Slade on 10-13-2022 Estimated Creatinine Clearance Calc 43.95 ml/min [facility] Estimated GFR (MDRD) Amer 82 mL/min >60 [facility] Comment on above: GFR Calc Estimated GFR (MDRD) Non-Af Amer 68 mL/min >60 [facility] Comment on above: Non- GFR Calc Free Triiodothyronine (T3) pg/dL 2.2 pg/mL 2.18-3.98 [facility] Platelets bldOrdered By: Elodia Slade on 10-13-2022 Platelets (Bld) [#/Vol] 288 10*3/uL 150-450 [facility] Protein Test strip Ql (U)Ord ered By: Sheyla Slade on 10-13-2022 Protein Ql (U) Negative Negative [facility] Serum or plasma albumin rosangela urement (mass/volume)Ordered By: Sheyla Slade on 10-13-2022 Albumin [Mass/Vol] 2.4 g/dL 3.2-5.0 [facility] Serum or plasma albumin/glob ulin mass ratioOrdered By: Sheyla Slade on 10-13-2022 Albumin/Globulin [Mass ratio] 0.7 {ratio} 0.9-2.4 [facility] Serum or plasma calcium rosangela urement (mass/volume)Ordered By: Sheyla Slade on 10-13-2022 Calcium [Mass/Vol] 8.4 mg/dL 8.5-10.1 [facility] Serum or plasma creatinine m easurement (mass/volume)Ordered By: Sheyla Slade on 10-13-2022 Creatinine [Mass/Vol] 0.87 mg/dL 0.55-1.02 [facility] Comment on above: The validity of the calculated GFR & GFRAA in patients over 70 years has not been determined. Clinical correlation is essential. Serum or plasma urea nitroge n measurement (mass/volume)Ordered By: Sheyla Slade on 10-13-2022 Urea nitrogen [Mass/Vol] 9 mg/dL 7-18 [facility] Squamous epithelial cells de tection in urine sediment by light microscopyOrdered By: Sheyla Slade on 10-13-2022 Epithelial cells.squamous LM Ql (Urine sed) 0-5 SEEN /hpf 5-10 [facility] Thin prep Papanicolaou smear with manual screeningOrdered By: Sheyla Slade on 10-13-2022 Thin prep Papanicolaou smear with manual screening 18 U/L 15-37 [facility] Thin prep Papanicolaou smear with manual screening 6 5-15 [facility] Urine blood detectionOrdered By: Sheyla Slade on 10-13-2022 RBC Ql (U) Negative Negative [facility] RBC Ql (U) 0 SEEN /hpf 0-5 [facility] Urine clarityOrdered By: Elodia Slade on 10-13-2022 Clarity (U) Sl. Cloudy Clear [facility] Urine color determinationOrd ered By: Sheyla Slade on 10-13-2022 Color (U) Yellow Yellow [facility] Urine glucose detectionOrder ed By: Sheyla Slade on 10-13-2022 Glucose Ql (U) 50 mg/dl Normal [facility] Urine leukocyte esterase det ection by dipstickOrdered By: Sheyla Slade on 10-13-2022 Leukocyte esterase Test strip Ql (U) Negative Negative [facility] Urine pHOrdered By: Sheyla fink on 10-13-2022 pH (U) 6.0 [pH] 5.0 - 8.0 [facility] Urine sediment bacteria coun t by microscopy (number/high power field)Ordered By: Sheyla Slade on 10-13-2022 Bacteria LM.HPF (Urine sed) [#/Area] 0 /[HPF] None Seen [facility] Urine specific gravity measu rementOrdered By: Sheyla Slade on 10-13-2022 Specific gravity (U) [Rel density] 1.015 1.002-1.03 0 [facility] Urobilinogen Auto test strip Ql (U)Ordered By: Sheyla Slade on 10-13-2022 Urobilinogen Ql (U) Normal mg/dl Normal [facility] Absolute lymphocyte countOrd ered By: Harish Luis on 10-12-2022 Lymphocytes Auto (Unsp spec) [#/Vol] 1.77 10*3/uL 0.83-4.51 [facility] Basophil percentageOrdered B y: Harish Luis on 10-12-2022 Basophils/100 WBC (Bld) 0.8 % 0-1 [facility] Bilirubin [Mass/Vol] 0.50 mg/dL 0.20-1.00 [facility] Comment on above: For patients on eltr ombopag therapy, use of Dimension [place] TBIL is not recommended. Chloride [Moles/Vol] 108 mmol/L 98-107 [facility] Eosinophils/100 WBC (Bld) 1.5 % 0-5 [facility] Glucose [Mass/Vol] 116 mg/dL 74-106 [facility] Comment on above: Fasting Glucose resu lt from 100 to 125 mg/dL suggests IMPAIRED HOMEOSTASIS per A.D.A. criteria. Neutrophils (Bld) [#/Vol] 4.6 10*3/uL 2.0-7.7 [facility] Neutrophils/100 WBC (Bld) 63.9 % 47-70 [facility] Potassium [Moles/Vol] 3.6 mmol/L 3.5-5.1 [facility] Protein [Mass/Vol] 6.9 g/dL 6.4-8.2 [facility] Sodium [Moles/Vol] 142 mmol/L 136-145 [facility] WBC (Bld) [#/Vol] 7.2 10*3/uL 4.4-11.0 [facility] Blood erythrocytes count (nu mber/volume)Ordered By: Harish Luis on 10-12-2022 RBC (Bld) [#/Vol] 4.18 10*6/uL 4.2-5.4 [facility] Blood hemoglobin measurement (mass/volume)Ordered By: Harish Luis on 10-12-2022 Hemoglobin (Bld) [Mass/Vol] 13.2 g/dL 12.0-15.0 [facility] Blood lymphocytes/100 leukoc ytesOrdered By: Harish Luis on 10-12-2022 Lymphocytes/100 WBC (Bld) 24.4 % 19-41 [facility] Blood monocytes/100 leukocyt esOrdered By: Harish Luis on 10-12-2022 Monocytes/100 WBC (Bld) 9.0 % 0-10 [facility] Blood platelet mean volumeOr dered By: Harish Luis on 10-12-2022 Platelet mean volume (Bld) [Entitic vol] 10.2 fL 6.2-12.0 [facility] Determination of erythrocyte mean corpuscular volume (MCV)Ordered By: Harish Luis on 10-12-2022 MCV (RBC) [Entitic vol] 95.9 fL 81-99 [facility] Hematocrit Auto (Bld) [Volum e fraction]Or[facility] By: [facility] 10-12-[facility]22 Hematocrit (Bld) [Volume fraction] 40.1 % 37-47 [facility] Laboratory - Chemistry and C hemistry - challengeOrdered By: [facility] on 10-12-2022 ALP [Catalytic activity/Vol] 115 U/L 45-117 [facility] ALT [Catalytic activity/Vol] 17 U/L 13-56 [facility] CO2 [Moles/Vol] 28.0 mmol/L 21.0-32.0 [facility] Globulin (S) [Mass/Vol] 3.9 g/dL 2.2-4.2 [facility] Urea nitrogen/Creatinine [Mass ratio] 6.7 mg/mg 10-20 [facility] Laboratory - Hematology and Cell countsOrdered By: Harish Luis on 10-12-2022 Erythrocyte distribution width (RBC) [Entitic vol] 48.3 fL 35.1-43.9 [facility] Erythrocyte distribution width (RBC) [Ratio] 13.5 % 11.6-14.6 [facility] Immature granulocytes/100 WBC (Bld) 0.400 % 0.0-0.9 [facility] Comment on above: IG% - Immature Granu locytes (promyelocytes, myelocytes and metamyelocytes) > 1% indicates that a LEFT SHIFT is Present. MCH (RBC) [Entitic mass] 31.6 pg 27.0-32.0 [facility] Nucleated RBC/100 WBC (Bld) [Ratio] 0 % 0-5 [facility] MCHC Auto (RBC) [Mass/Vol]Or dered By: Harish Luis on 10-12-2022 MCHC (RBC) [Mass/Vol] 32.9 g/dL 32-36 [facility] No Panel InformationOrdered By: Harish Luis on 10-12-2022 Estimated GFR (MDRD) Amer 66 mL/min >60 [facility] Comment on above: GFR Calc Estimated GFR (MDRD) Non-Af Amer 55 mL/min >60 [facility] Comment on above: Non- GFR Calc Thyroid Stimulating Hormone (TSH) 0.05 uIU/mL 0.358-3.74 [facility] Platelets bldOrdered By: Harish Luis on 10-12-2022 Platelets (Bld) [#/Vol] 341 10*3/uL 150-450 [facility] Serum or plasma albumin rosangela urement (mass/volume)Ordered By: Harish Luis 10-12-2022 Albumin [Mass/Vol] 3.0 g/dL 3.2-5.0 [facility] Serum or plasma albumin/glob ulin mass ratioOrdered By: Harish Luis on 10-12-2022 Albumin/Globulin [Mass ratio] 0.8 {ratio} 0.9-2.4 [facility] Serum or plasma calcium rosangela urement (mass/volume)Ordered By: Harish Luis on 10-12-2022 Calcium [Mass/Vol] 9.1 mg/dL 8.5-10.1 [facility] Serum or plasma creatinine m easurement (mass/volume)Ordered By: Harish Luis on 10-12-2022 Creatinine [Mass/Vol] 1.05 mg/dL 0.55-1.02 [facility] Comment on above: The validity of the calculated GFR & GFRAA in patients over 70 years has not been determined. Clinical correlation is essential. Serum or plasma urea nitroge n measurement (mass/volume)Ordered By: Harish Luis on 10-12-2022 Urea nitrogen [Mass/Vol] 7 mg/dL 718 [facility] Thin prep Papanicolaou smear with manual screeningOrdered By: Harish Luis on 10-12-2022 Thin prep Papanicolaou smear with manual screening 22 U/L 1537 [facility] Thin prep Papanicolaou smear with manual screening 6 5-15 [facility] Basophil percentageOrdered B y: Sondra Rooney on 08-03-2022 Cholesterol [Mass/Vol] 176 mg/dL <200 [facility] Comment on above: <200 mg/dL Desirable 200-240 mg/dL Borderline >240 mg/dL High Risk Triglyceride [Mass/Vol] 79 mg/dL <199 [facility] Comment on above: The drugs N-Acetylcy steine and Metamizole may falsely depress this assay.Serum Triglycerides Reference Interval Normal <150 mg/dL Borderline high 150 - 199 mg/dL High 200 - 499 mg/dL Very High > or = 500 mg/dL Serum or plasma cholesterol in HDL measurement (mass/volume)Ordered By: Sondra Rooney on 08-03-2022 Cholesterol in HDL [Mass/Vol] 52 mg/dL >40 [facility] Comment on above: The drugs N-Acetylcy steine and Metamizole may falsely depress this assay. Reference Range HDL <40 mg/dL Low HDL Cholesterol HDL >or= 60 mg/dL High HDL Cholesterol Serum or plasma cholesterol in VLDL measurement (mass/volume)Ordered By: Sondra Rooney on 08-03-2022 Cholesterol in VLDL [Mass/Vol] 16 mg/dL 5-40 [facility] Serum or plasma low density lipoprotein (LDL) cholesterol measurement (mass/volume)Ordered By: Sondra Rooney on 08-03-2022 Cholesterol in LDL [Mass/Vol] 108 mg/dL 0-130 [facility] Glucose Glucometer (BldC) [M ass/Vol]Ordered By: Doni Hanson on 08-02-2022 Glucose [Mass/Vol] 109 mg/dL 74-106 [facility] Comment on above: MANAGEMENT OF PATIEN T CARE PER NURSING PROTOCOL Absolute lymphocyte countOrd ered By: Rafita Siddiqui on 07-30-2022 Lymphocytes Auto (Unsp spec) [#/Vol] 1.32 10*3/uL 0.83-4.51 [facility] Basophil percentageOrdered B y: Rafita Siddiqui on 07-30-2022 Basophils/100 WBC (Bld) 0.4 % 0-1 [facility] Chloride [Moles/Vol] 108 mmol/L 98-107 [facility] Eosinophils/100 WBC (Bld) 2.1 % 0-5 [facility] Glucose [Mass/Vol] 100 mg/dL 74-106 [facility] Comment on above: Fasting Glucose resu lt from 100 to 125 mg/dL suggests IMPAIRED HOMEOSTASIS per A.D.A. criteria. Neutrophils (Bld) [#/Vol] 5.0 10*3/uL 2.0-7.7 [facility] Neutrophils/100 WBC (Bld) 70.5 % 47-70 [facility] Potassium [Moles/Vol] 3.9 mmol/L 3.5-5.1 [facility] Sodium [Moles/Vol] 137 mmol/L 136-145 [facility] WBC (Bld) [#/Vol] 7.1 10*3/uL 4.4-11.0 [facility] Blood erythrocytes count (nu mber/volume)Ordered By: Rafita Siddiqui on 07-30-2022 RBC (Bld) [#/Vol] 3.34 10*6/uL 4.2-5.4 [facility] Blood hemoglobin measurement (mass/volume)Ordered By: Rafita Siddiqui on 07-30-2022 Hemoglobin (Bld) [Mass/Vol] 10.4 g/dL 12.0-15.0 [facility] Blood lymphocytes/100 leukoc ytesOrdered By: Rafita Siddiqui on 07-30-2022 Lymphocytes/100 WBC (Bld) 18.5 % 19-41 [facility] Blood monocytes/100 leukocyt esOrdered By: Rafita Siddiqui on 07-30-2022 Monocytes/100 WBC (Bld) 8.1 % 0-10 [facility] Blood platelet mean volumeOr dered By: Rafita Siddiqui on 07-30-2022 Platelet mean volume (Bld) [Entitic vol] 10.3 fL 6.2-12.0 [facility] Determination of erythrocyte mean corpuscular volume (MCV)Ordered By: Rafita Siddiqui on 07-30-2022 MCV (RBC) [Entitic vol] 97.9 fL 81-99 [facility] Hematocrit Auto (Bld) [Volum e fraction]Ordered By: Rafita Siddiqui on 07-30-2022 Hematocrit (Bld) [Volume fraction] 32.7 % 37-47 [facility] Laboratory - Chemistry and C hemistry - challengeOrdered By: Rafita Siddiqui on 07-30-2022 CO2 [Moles/Vol] 23.0 mmol/L 21.0-32.0 [facility] Urea nitrogen/Creatinine [Mass ratio] 13.9 mg/mg 10-20 [facility] Laboratory - Hematology and Cell countsOrdered By: Rafita Siddiqui on 07-30-2022 Erythrocyte distribution width (RBC) [Entitic vol] 52.1 fL 35.1-43.9 [facility] Erythrocyte distribution width (RBC) [Ratio] 14.5 % 11.6-14.6 [facility] Immature granulocytes/100 WBC (Bld) 0.400 % 0.0-0.9 [facility] Comment on above: IG% - Immature Granu locytes (promyelocytes, myelocytes and metamyelocytes) > 1% indicates that a LEFT SHIFT is Present. MCH (RBC) [Entitic mass] 31.1 pg 27.0-32.0 [facility] Nucleated RBC/100 WBC (Bld) [Ratio] 0 % 0-5 [facility] MCHC Auto (RBC) [Mass/Vol]Or dered By: Rafita Siddiqui on 07-30-2022 MCHC (RBC) [Mass/Vol] 31.8 g/dL 32-36 [facility] No Panel InformationOrdered By: Rafita Siddiqui on 07-30-2022 Streptococcus pneumoniae Antigen (M [facility] Estimated Creatinine Clearance Calc 41.65 ml/min [facility] Estimated GFR (MDRD) Amer 69 mL/min >60 [facility] Comment on above: GFR Calc Estimated GFR (MDRD) Non-Af Amer 57 mL/min >60 [facility] Comment on above: Non- GFR Calc Platelets bldOrdered By: Pina Siddiqui on 07-30-2022 Platelets (Bld) [#/Vol] 286 10*3/uL 150-450 [facility] Serum or plasma calcium rosangela urement (mass/volume)Ordered By: Rafita Siddiqui on 07-30-2022 Calcium [Mass/Vol] 8.4 mg/dL 8.5-10.1 [facility] Serum or plasma creatinine m easurement (mass/volume)Ordered By: Rafita Siddiqui on 07-30-2022 Creatinine [Mass/Vol] 1.01 mg/dL 0.55-1.02 [facility] Comment on above: The validity of the calculated GFR & GFRAA in patients over 70 years has not been determined. Clinical correlation is essential. Serum or plasma urea nitroge n measurement (mass/volume)Ordered By: Rafita Siddiqui on 07-30-2022 Urea nitrogen [Mass/Vol] 14 mg/dL 7-18 [facility] Thin prep Papanicolaou smear with manual screeningOrdered By: Rafita Siddiqui on 07-30-2022 Thin prep Papanicolaou smear with manual screening 6 5-15 [facility] Absolute lymphocyte countOrd ered By: Dr. Rosales on 07-29-2022 Lymphocytes Auto (Unsp spec) [#/Vol] 0.73 10*3/uL 0.83-4.51 [facility] Basophil percentageOrdered B y: Dr. Rosales on 07-29-2022 Lactate [Moles/Vol] 1.7 mmol/L 0.4-2.0 [facility] Basophils/100 WBC (Bld) 0.7 % 0-1 [facility] Chloride [Moles/Vol] 110 mmol/L 98-107 [facility] Eosinophils/100 WBC (Bld) 2.2 % 0-5 [facility] Glucose [Mass/Vol] 123 mg/dL 74-106 [facility] Comment on above: Fasting Glucose resu lt from 100 to 125 mg/dL suggests IMPAIRED HOMEOSTASIS per A.D.A. criteria. Neutrophils (Bld) [#/Vol] 6.7 10*3/uL 2.0-7.7 [facility] Neutrophils/100 WBC (Bld) 81.7 % 47-70 [facility] Potassium [Moles/Vol] 3.9 mmol/L 3.5-5.1 [facility] Sodium [Moles/Vol] 142 mmol/L 136-145 [facility] WBC (Bld) [#/Vol] 8.2 10*3/uL 4.4-11.0 [facility] Blood erythrocytes count (nu mber/volume)Ordered By: Dr. Rosales on 07-29-2022 RBC (Bld) [#/Vol] 3.91 10*6/uL 4.2-5.4 [facility] Blood hemoglobin measurement (mass/volume)Ordered By: Dr. Rosales on 07-29-2022 Hemoglobin (Bld) [Mass/Vol] 12.0 g/dL 12.0-15.0 [facility] Blood lymphocytes/100 leukoc ytesOrdered By: Dr. Rosales on 07-29-2022 Lymphocytes/100 WBC (Bld) 8.9 % 19-41 [facility] Blood monocytes/100 leukocyt esOrdered By: Dr. Rosales on 07-29-2022 Monocytes/100 WBC (Bld) 6.3 % 0-10 [facility] Blood platelet mean volumeOr dered By: Dr. Rosales on 07-29-2022 Platelet mean volume (Bld) [Entitic vol] 10.5 fL 6.2-12.0 [facility] Determination of erythrocyte mean corpuscular volume (MCV)Ordered By: Dr. Rosales on 07-29-2022 MCV (RBC) [Entitic vol] 99.0 fL 81-99 [facility] Hematocrit Auto (Bld) [Volum e fraction]Ordered By: Dr. Rosales on 07-29-2022 Hematocrit (Bld) [Volume fraction] 38.7 % 37-47 [facility] Influenza virus A and B and SARS-CoV-2 (COVID-19) Ag panel - Upper respiratory specimOrdered By: Dimitry Rosales on 07-29-2022 SARS-CoV-2 & FLU Antigen (Rapid) Influenzae B [facility] Influenza virus A and B and SARS-CoV-2 (COVID-19) Ag panel - Upper respiratory specimOrdered By: Dr. Rosales on 07-29-2022 SARS-CoV-2 & FLU Antigen (Rapid) Influenzae B [facility] Laboratory - Chemistry and C hemistry - challengeOrdered By: Dr. Rosales on 07-29-2022 CO2 [Moles/Vol] 27.0 mmol/L 21.0-32.0 [facility] Natriuretic peptide B (Bld) [Mass/Vol] 36.5 pg/mL 0-100 [facility] Urea nitrogen/Creatinine [Mass ratio] 13.0 mg/mg 10-20 [facility] Laboratory - Hematology and Cell countsOrdered By: Dr. Rosales on 07-29-2022 Erythrocyte distribution width (RBC) [Entitic vol] 52.6 fL 35.1-43.9 [facility] Erythrocyte distribution width (RBC) [Ratio] 14.6 % 11.6-14.6 [facility] Immature granulocytes/100 WBC (Bld) 0.200 % 0.0-0.9 [facility] Comment on above: IG% - Immature Granu locytes (promyelocytes, myelocytes and metamyelocytes) > 1% indicates that a LEFT SHIFT is Present. MCH (RBC) [Entitic mass] 30.7 pg 27.0-32.0 [facility] Nucleated RBC/100 WBC (Bld) [Ratio] 0 % 0-5 [facility] Laboratory - Microbiology an d Antimicrobial susceptibilityOrdered By: Dimitry Rosales on 07-29-2022 Bacteria identified Cx Nom (Bld) No growth in 5 days. [facility] MCHC Auto (RBC) [Mass/Vol]Or dered By: Dr. Rosales on 07-29-2022 MCHC (RBC) [Mass/Vol] 31.0 g/dL 32-36 [facility] No Panel InformationOrdered By: Dr. Rosales on 07-29-2022 D-Dimer Quantitative (PE/DVT) 0.62 FEU/ug/m 0.27-0.49 [facility] Comment on above: D-Dimer ELEVATED (>0 .49): Additional studies and clinicalassessments are indicated to conclude diagnosis of:Deep Vein Thrombosis (DVT) or Pulmonary Embolism (PE)CRITICAL VALUE VERIFIED. CALLED TO KADEEM GEORGE07/29/22 0913 Andressa Germain.RESULTS READ BACK BY SAME . Estimated Creatinine Clearance Calc 38.95 ml/min [facility] Estimated GFR (MDRD) Amer 64 mL/min >60 [facility] Comment on above: GFR Calc Estimated GFR (MDRD) Non-Af Amer 53 mL/min >60 [facility] Comment on above: Non- GFR Calc Troponin I High Sensitivity 3 pg/mL 3.0-54.0 [facility] Comment on above: Please Note: New Nu t Units and Gender Specific Reference Ranges. For more information see Policy Stat Procedure [place] High Sensitivity Troponin (TNIH) and attachments. Platelets bldOrdered By: Dr. Rosales on 07-29-2022 Platelets (Bld) [#/Vol] 296 10*3/uL 150-450 [facility] Serum or plasma calcium rosangela urement (mass/volume)Ordered By: Dr. Rosales on 07-29-2022 Calcium [Mass/Vol] 8.7 mg/dL 8.5-10.1 [facility] Serum or plasma creatinine m easurement (mass/volume)Ordered By: Dr. Rosales on 07-29-2022 Creatinine [Mass/Vol] 1.08 mg/dL 0.55-1.02 [facility] Comment on above: The validity of the calculated GFR & GFRAA in patients over 70 years has not been determined. Clinical correlation is essential. Serum or plasma urea nitroge n measurement (mass/volume)Ordered By: Dr. Rosales on 07-29-2022 Urea nitrogen [Mass/Vol] 14 mg/dL 7-18 [facility] Thin prep Papanicolaou smear with manual screeningOrdered By: Dr. Rosales on 07-29-2022 Thin prep Papanicolaou smear with manual screening 5 5-15 [facility] Absolute lymphocyte countOrd ered By: Dr. Luis on 07-06-2022 Lymphocytes Auto (Unsp spec) [#/Vol] 1.65 10*3/uL 0.83-4.51 [facility] Basophil percentageOrdered B y: Dr. Luis on 07-06-2022 Basophils/100 WBC (Bld) 1.1 % 0-1 [facility] Bilirubin [Mass/Vol] 0.30 mg/dL 0.20-1.00 [facility] Comment on above: For patients on eltr ombopag therapy, use of Dimension [place] TBIL is not recommended. Chloride [Moles/Vol] 112 mmol/L 98-107 [facility] Eosinophils/100 WBC (Bld) 2.8 % 0-5 [facility] Glucose [Mass/Vol] 97 mg/dL 74-106 [facility] Neutrophils (Bld) [#/Vol] 2.3 10*3/uL 2.0-7.7 [facility] Neutrophils/100 WBC (Bld) 50.8 % 47-70 [facility] Potassium [Moles/Vol] 3.8 mmol/L 3.5-5.1 [facility] Protein [Mass/Vol] 7.1 g/dL 6.4-8.2 [facility] Sodium [Moles/Vol] 141 mmol/L 136-145 [facility] WBC (Bld) [#/Vol] 4.6 10*3/uL 4.4-11.0 [facility] Blood erythrocytes count (nu mber/volume)Ordered By: Dr. Luis on 07-06-2022 RBC (Bld) [#/Vol] 4.35 10*6/uL 4.2-5.4 [facility] Blood hemoglobin measurement (mass/volume)Ordered By: Dr. Luis on 07-06-2022 Hemoglobin (Bld) [Mass/Vol] 13.3 g/dL 12.0-15.0 [facility] Blood lymphocytes/100 leukoc ytesOrdered By: Dr. Luis on 07-06-2022 Lymphocytes/100 WBC (Bld) 35.8 % 19-41 [facility] Blood monocytes/100 leukocyt esOrdered By: Dr. Luis on 07-06-2022 Monocytes/100 WBC (Bld) 9.3 % 0-10 [facility] Blood platelet mean volumeOr dered By: Dr. Luis on 07-06-2022 Platelet mean volume (Bld) [Entitic vol] 9.7 fL 6.2-12.0 [facility] Determination of erythrocyte mean corpuscular volume (MCV)Ordered By: Dr. Luis on 07-06-2022 MCV (RBC) [Entitic vol] 98.4 fL 81-99 [facility] Hematocrit Auto (Bld) [Volum e fraction]Ordered By: Dr. Luis on 07-06-2022 Hematocrit (Bld) [Volume fraction] 42.8 % 37-47 [facility] Laboratory - Chemistry and C hemistry - challengeOrdered By: Dr. Luis on 07-06-2022 ALP [Catalytic activity/Vol] 102 U/L 45-117 [facility] ALT [Catalytic activity/Vol] 17 U/L 13-56 [facility] CO2 [Moles/Vol] 27.0 mmol/L 21.0-32.0 [facility] Globulin (S) [Mass/Vol] 4.0 g/dL 2.2-4.2 [facility] Urea nitrogen/Creatinine [Mass ratio] 8.6 mg/mg 10-20 [facility] Laboratory - Hematology and Cell countsOrdered By: Dr. Luis on 07-06-2022 Erythrocyte distribution width (RBC) [Entitic vol] 50.4 fL 35.1-43.9 [facility] Erythrocyte distribution width (RBC) [Ratio] 13.9 % 11.6-14.6 [facility] Immature granulocytes/100 WBC (Bld) 0.200 % 0.0-0.9 [facility] Comment on above: IG% - Immature Granu locytes (promyelocytes, myelocytes and metamyelocytes) > 1% indicates that a LEFT SHIFT is Present. MCH (RBC) [Entitic mass] 30.6 pg 27.0-32.0 [facility] Nucleated RBC/100 WBC (Bld) [Ratio] 0 % 0-5 [facility] MCHC Auto (RBC) [Mass/Vol]Or dered By: Dr. Luis on 07-06-2022 MCHC (RBC) [Mass/Vol] 31.1 g/dL 32-36 [facility] No Panel InformationOrdered By: Dr. Luis on 07-06-2022 Estimated GFR (MDRD) Amer 76 mL/min >60 [facility] Comment on above: GFR Calc Estimated GFR (MDRD) Non-Af Amer 63 mL/min >60 [facility] Comment on above: Non- GFR Calc Thyroid Stimulating Hormone (TSH) 0.47 uIU/mL 0.358-3.74 [facility] Vitamin D 25-Hydroxy 32.0 ng/mL [facility] Comment on above: Vitamin D 25(OH) Sta tus Range Deficiency <20 ng/mL (50nmol/L) Insufficiency 20 - 30 ng/mL (50 - 75 nmol/L) Sufficiency 30 - 100 ng/mL (75 - 250 nmol/L) Toxicity >100 ng/mL (>250 nmol/L) Platelets bldOrdered By: Dr. Luis on 07-06-2022 Platelets (Bld) [#/Vol] 351 10*3/uL 150-450 [facility] Serum or plasma albumin rosangela urement (mass/volume)Ordered By: Dr. Luis on 07-06-2022 Albumin [Mass/Vol] 3.1 g/dL 3.2-5.0 [facility] Serum or plasma albumin/glob ulin mass ratioOrdered By: Dr. Luis on 07-06-2022 Albumin/Globulin [Mass ratio] 0.8 {ratio} 0.9-2.4 [facility] Serum or plasma calcium rosangela urement (mass/volume)Ordered By: Dr. Luis on 07-06-2022 Calcium [Mass/Vol] 8.9 mg/dL 8.5-10.1 [facility] Serum or plasma creatinine m easurement (mass/volume)Ordered By: Dr. Luis on 07-06-2022 Creatinine [Mass/Vol] 0.94 mg/dL 0.55-1.02 [facility] Comment on above: The validity of the calculated GFR & GFRAA in patients over 70 years has not been determined. Clinical correlation is essential. Serum or plasma urea nitroge n measurement (mass/volume)Ordered By: Dr. Luis on 07-06-2022 Urea nitrogen [Mass/Vol] 8 mg/dL 7-18 [facility] Thin prep Papanicolaou smear with manual screeningOrdered By: Dr. Luis on 07-06-2022 Thin prep Papanicolaou smear with manual screening 17 U/L 15-37 [facility] Thin prep Papanicolaou smear with manual screening 2 5-15 [facility] COVID-19 virus antigen assay Ordered By: Dr. Luis on 06-28-2022 SARS-CoV-2 (COVID-19) Ag IA.rapid Ql (Resp) Not detected Not Detect [facility] Comment on above: Normal Reference Ran ge: Not DetectedMethod:(RT-PCR) real-time reverse transcriptase PCRLuminex Puzl Instrument*The Food and Drug Administration (FDA) has issued an Emergency Use Authorization (EAU) for the Puzl SARS-CoV-2 Assay for the rapid detection of the virus that causes COVID-19. This test has been validated, but the FDAs independent review of this validation is pending.*Negative results do not preclude infection and should not be used as the sole basis for treatment or patient management. Optimum specimen types and timing for peak viral levels during infections caused by SARS-CoV-2 have not been determined. Collection of multiple specimens from the same patient may be necessary to detect the virus. The possibility of a false negative result should be considered if the patient has clinical presentation or has had recent exposure. No Panel InformationOrdered By: Harish Luis on 06-28-2022 Influenza Types A,B Direct FA (STEPHANIE) [facility] No Panel InformationOrdered By: Dr. Luis on 06-28-2022 Influenza Types A,B Direct FA (STEPHANIE) [facility] RSV Ag EIAOrdered By: Harish neal on 06-28-2022 RSV Ag Immune stain Ql (Tiss) [facility] RSV Ag EIAOrdered By: Dr. Desiree neal on 06-28-2022 RSV Ag Immune stain Ql (Tiss) [facility] Basophil percentageOrdered B y: Dr. Manley on 04-24-2022 Chloride [Moles/Vol] 113 mmol/L 98-107 [facility] Glucose [Mass/Vol] 100 mg/dL 74-106 [facility] Comment on above: Fasting Glucose resu lt from 100 to 125 mg/dL suggests IMPAIRED HOMEOSTASIS per A.D.A. criteria. Potassium [Moles/Vol] 3.8 mmol/L 3.5-5.1 [facility] Sodium [Moles/Vol] 143 mmol/L 136-145 [facility] WBC (Bld) [#/Vol] 4.4 10*3/uL 4.4-11.0 [facility] Blood erythrocytes count (nu mber/volume)Ordered By: Dr. Manley on 04-24-2022 RBC (Bld) [#/Vol] 3.86 10*6/uL 4.2-5.4 [facility] Blood hemoglobin measurement (mass/volume)Ordered By: Dr. Manley on 04-24-2022 Hemoglobin (Bld) [Mass/Vol] 12.0 g/dL 12.0-15.0 [facility] Blood platelet mean volumeOr dered By: Dr. Manley on 04-24-2022 Platelet mean volume (Bld) [Entitic vol] 9.6 fL 6.2-12.0 [facility] Determination of erythrocyte mean corpuscular volume (MCV)Ordered By: Dr. Manley on 04-24-2022 MCV (RBC) [Entitic vol] 100.0 fL 81-99 [facility] Hematocrit Auto (Bld) [Volum e fraction]Ordered By: Dr. Manley on 04-24-2022 Hematocrit (Bld) [Volume fraction] 38.6 % 37-47 [facility] INR in Blood by Coagulation assayOrdered By: Dr. Manley on 04-24-2022 INR Coag (Bld) [Relative time] 1.0 {INR} [facility] Laboratory - Chemistry and C hemistry - challengeOrdered By: Dr. Manley on 04-24-2022 CO2 [Moles/Vol] 25.0 mmol/L 21.0-32.0 [facility] Urea nitrogen/Creatinine [Mass ratio] 9.7 mg/mg 10-20 [facility] Laboratory - CoagulationOrde red By: Dr. Manley on 04-24-2022 aPTT Coag (Bld) [Time] 33.1 s 24.1-36.2 [facility] Coag (PPP) [Time] 12.8 s 11.7-14.9 [facility] Laboratory - Hematology and Cell countsOrdered By: Dr. Manley on 04-24-2022 Erythrocyte distribution width (RBC) [Entitic vol] 53.3 fL 35.1-43.9 [facility] Erythrocyte distribution width (RBC) [Ratio] 14.3 % 11.6-14.6 [facility] MCH (RBC) [Entitic mass] 31.1 pg 27.0-32.0 [facility] MCHC Auto (RBC) [Mass/Vol]Or dered By: Dr. Manley on 04-24-2022 MCHC (RBC) [Mass/Vol] 31.1 g/dL 32-36 [facility] No Panel InformationOrdered By: Dr. Manley on 04-24-2022 Estimated GFR (MDRD) Amer 77 mL/min >60 [facility] Comment on above: GFR Calc Estimated GFR (MDRD) Non-Af Amer 63 mL/min >60 [facility] Comment on above: Non- GFR Calc Platelets bldOrdered By: Dr. Manley on 04-24-2022 Platelets (Bld) [#/Vol] 408 10*3/uL 150-450 [facility] Serum or plasma calcium rosangela urement (mass/volume)Ordered By: Dr. Manley on 04-24-2022 Calcium [Mass/Vol] 8.8 mg/dL 8.5-10.1 [facility] Serum or plasma creatinine m easurement (mass/volume)Ordered By: Dr. Manley on 04-24-2022 Creatinine [Mass/Vol] 0.93 mg/dL 0.55-1.02 [facility] Comment on above: The validity of the calculated GFR & GFRAA in patients over 70 years has not been determined. Clinical correlation is essential. Serum or plasma urea nitroge n measurement (mass/volume)Ordered By: Dr. Manley on 04-24-2022 Urea nitrogen [Mass/Vol] 9 mg/dL 7-18 [facility] Thin prep Papanicolaou smear with manual screeningOrdered By: Dr. Manley on 04-24-2022 Thin prep Papanicolaou smear with manual screening 5 5-15 [facility] Laboratory - Microbiology an d Antimicrobial susceptibilityOrdered By: Dr. Luis on 04-10-2022 SARS-CoV-2 (COVID-19) RNA ANTIONE+probe Ql (Unsp spec) Not detected Not Detect [facility] Comment on above: Normal Reference Ran ge: Not DetectedMethod:(RT-PCR) real-time reverse transcriptase PCRLuminex BRADY Instrument*The Food and Drug Administration (FDA) has issued an Emergency Use Authorization (EAU) for the BRADY SARS-CoV-2 Assay for the rapid detection of the virus that causes COVID-19. This test has been validated, but the FDAs independent review of this validation is pending.*Negative results do not preclude infection and should not be used as the sole basis for treatment or patient management. Optimum specimen types and timing for peak viral levels during infections caused by SARS-CoV-2 have not been determined. Collection of multiple specimens from the same patient may be necessary to detect the virus. The possibility of a false negative result should be considered if the patient has clinical presentation or has had recent exposure. No Panel InformationOrdered By: Dr. Luis on 04-10-2022 Influenza Types A,B Direct FA (STEPHANIE) [facility] RSV Ag EIAOrdered By: Dr. Desiree neal on 04-10-2022 RSV Ag Immune stain Ql (Tiss) [facility] Laboratory - Microbiology an d Antimicrobial susceptibilityOrdered By: Dr. Luis on 03-31-2022 SARS-CoV-2 (COVID-19) RNA ANTIONE+probe Ql (Unsp spec) Not detected Not Detect [facility] Comment on above: Normal Reference Ran ge: Not DetectedMethod:(RT-PCR) real-time reverse transcriptase PCRLuminex BRADY Instrument*The Food and Drug Administration (FDA) has issued an Emergency Use Authorization (EAU) for the BRADY SARS-CoV-2 Assay for the rapid detection of the virus that causes COVID-19. This test has been validated, but the FDAs independent review of this validation is pending.*Negative results do not preclude infection and should not be used as the sole basis for treatment or patient management. Optimum specimen types and timing for peak viral levels during infections caused by SARS-CoV-2 have not been determined. Collection of multiple specimens from the same patient may be necessary to detect the virus. The possibility of a false negative result should be considered if the patient has clinical presentation or has had recent exposure. No Panel InformationOrdered By: Dr. Luis on 03-31-2022 Influenza Types A,B Direct FA (STEPHANIE) [facility] RSV Ag EIAOrdered By: Dr. Desiree neal on 03-31-2022 RSV Ag Immune stain Ql (Tiss) [facility] Absolute lymphocyte countOrd ered By: Dr. Luis on 12-28-2021 Lymphocytes Auto (Unsp spec) [#/Vol] 1.82 10*3/uL 0.83-4.51 [facility] Basophil percentageOrdered B y: Dr. Luis on 12-28-2021 Basophils/100 WBC (Bld) 1.0 % 0-1 [facility] Bilirubin [Mass/Vol] 0.50 mg/dL 0.20-1.00 [facility] Comment on above: For patients on eltr ombopag therapy, use of Dimension [place] TBIL is not recommended. Chloride [Moles/Vol] 112 mmol/L 98-107 [facility] Eosinophils/100 WBC (Bld) 1.7 % 0-5 [facility] Glucose [Mass/Vol] 97 mg/dL 74-106 [facility] Neutrophils (Bld) [#/Vol] 1.7 10*3/uL 2.0-7.7 [facility] Neutrophils/100 WBC (Bld) 43.2 % 47-70 [facility] Potassium [Moles/Vol] 3.7 mmol/L 3.5-5.1 [facility] Protein [Mass/Vol] 6.2 g/dL 6.4-8.2 [facility] Sodium [Moles/Vol] 141 mmol/L 136-145 [facility] WBC (Bld) [#/Vol] 4.0 10*3/uL 4.4-11.0 [facility] Blood erythrocytes count (nu mber/volume)Ordered By: Dr. Luis on 12-28-2021 RBC (Bld) [#/Vol] 3.56 10*6/uL 4.2-5.4 [facility] Blood hemoglobin measurement (mass/volume)Ordered By: Dr. Luis on 12-28-2021 Hemoglobin (Bld) [Mass/Vol] 11.2 g/dL 12.0-15.0 [facility] Blood lymphocytes/100 leukoc ytesOrdered By: Dr. Luis on 12-28-2021 Lymphocytes/100 WBC (Bld) 45.2 % 19-41 [facility] Blood monocytes/100 leukocyt esOrdered By: Dr. Luis on 12-28-2021 Monocytes/100 WBC (Bld) 8.7 % 0-10 [facility] Blood platelet mean volumeOr dered By: Dr. Luis on 12-28-2021 Platelet mean volume (Bld) [Entitic vol] 11.1 fL 6.2-12.0 [facility] Determination of erythrocyte mean corpuscular volume (MCV)Ordered By: Dr. Luis on 12-28-2021 MCV (RBC) [Entitic vol] 96.1 fL 81-99 [facility] Hematocrit Auto (Bld) [Volum e fraction]Ordered By: Dr. Luis on 12-28-2021 Hematocrit (Bld) [Volume fraction] 34.2 % 37-47 [facility] Laboratory - Chemistry and C hemistry - challengeOrdered By: Dr. Luis on 12-28-2021 ALP [Catalytic activity/Vol] 68 U/L 45-117 [facility] ALT [Catalytic activity/Vol] 14 U/L 13-56 [facility] CO2 [Moles/Vol] 25.0 mmol/L 21.0-32.0 [facility] Globulin (S) [Mass/Vol] 3.0 g/dL 2.2-4.2 [facility] Urea nitrogen/Creatinine [Mass ratio] 8.5 mg/mg 10-20 [facility] Laboratory - Hematology and Cell countsOrdered By: Dr. Luis on 12-28-2021 Erythrocyte distribution width (RBC) [Entitic vol] 46.9 fL 35.1-43.9 [facility] Erythrocyte distribution width (RBC) [Ratio] 13.2 % 11.6-14.6 [facility] Immature granulocytes/100 WBC (Bld) 0.200 % 0.0-0.9 [facility] Comment on above: IG% - Immature Granu locytes (promyelocytes, myelocytes and metamyelocytes) > 1% indicates that a LEFT SHIFT is Present. MCH (RBC) [Entitic mass] 31.5 pg 27.0-32.0 [facility] Nucleated RBC/100 [facility] (Bld) [[facility]] 0 [facility] [Mass/Vol]Or dered By: Dr. Luis on 12-28-2021 MCHC (RBC) [Mass/Vol] 32.7 g/dL 32-36 [facility] No Panel InformationOrdered By: Dr. Luis on 12-28-2021 Estimated GFR (MDRD) Amer 66 mL/min >60 [facility] Comment on above: GFR Calc Estimated GFR (MDRD) Non-Af Amer 54 mL/min >60 [facility] Comment on above: Non- GFR Calc Thyroid Stimulating Hormone (TSH) 0.74 uIU/mL 0.358-3.74 [facility] Vitamin D 25-Hydroxy 45.5 ng/mL [facility] Comment on above: Vitamin D 25(OH) Sta tus Range Deficiency <20 ng/mL (50nmol/L) Insufficiency 20 - 30 ng/mL (50 - 75 nmol/L) Sufficiency 30 - 100 ng/mL (75 - 250 nmol/L) Toxicity >100 ng/mL (>250 nmol/L) Platelets bldOrdered By: Dr. Luis on 12-28-2021 Platelets (Bld) [#/Vol] 247 10*3/uL 150-450 [facility] Serum or plasma albumin rosangela urement (mass/volume)Ordered By: Dr. Luis on 12-28-2021 Albumin [Mass/Vol] 3.2 g/dL 3.2-5.0 [facility] Serum or plasma albumin/glob ulin mass ratioOrdered By: Dr. Luis on 12-28-2021 Albumin/Globulin [Mass ratio] 1.1 {ratio} 0.9-2.4 [facility] Serum or plasma calcium rosangela urement (mass/volume)Ordered By: Dr. Luis on 12-28-2021 Calcium [Mass/Vol] 8.8 mg/dL 8.5-10.1 [facility] Serum or plasma creatinine m easurement (mass/volume)Ordered By: Dr. Luis on 12-28-2021 Creatinine [Mass/Vol] 1.06 mg/dL 0.55-1.02 [facility] Comment on above: The validity of the calculated GFR & GFRAA in patients over 70 years has not been determined. Clinical correlation is essential. Serum or plasma urea nitroge n measurement (mass/volume)Ordered By: Dr. Luis on 12-28-2021 Urea nitrogen [Mass/Vol] 9 mg/dL 7-18 [facility] Thin prep Papanicolaou smear with manual screeningOrdered By: Dr. Luis on 12-28-2021 Thin prep Papanicolaou smear with manual screening 13 U/L 15-37 [facility] Thin prep Papanicolaou smear with manual screening 4 5-15 [facility] Laboratory - Microbiology an d Antimicrobial susceptibilityon 12-01-2021 SARS-CoV-2 (COVID-19) RNA ANTIONE+probe Ql (Unsp spec) Not detected Not Detect [facility] Work Phone: Comment on above: Normal Reference Ran ge: Not DetectedMethod:(RT-PCR) real-time reverse transcriptase PCRLuminex BRADY Instrument*The Food and Drug Administration (FDA) has issued an Emergency Use Authorization (EAU) for the BRADY SARS-CoV-2 Assay for the rapid detection of the virus that causes COVID-19. This test has been validated, but the FDAs independent review of this validation is pending.*Negative results do not preclude infection and should not be used as the sole basis for treatment or patient management. Optimum specimen types and timing for peak viral levels during infections caused by SARS-CoV-2 have not been determined. Collection of multiple specimens from the same patient may be necessary to detect the virus. The possibility of a false negative result should be considered if the patient has clinical presentation or has had recent exposure. Absolute lymphocyte counton 06-27-2021 Lymphocytes Auto (Unsp spec) [#/Vol] 1.71 10*3/uL 0.83-4.51 [facility] Work Phone: Basophil percentageon 2021 Basophils/100 WBC (Bld) 1.2 % 0-1 [facility] Work Phone: Bilirubin [Mass/Vol] 0.30 mg/dL 0.20-1.00 [facility] Work Phone: Comment on above: For patients on eltr ombopag therapy, use of Dimension [place] TBIL is not recommended. Chloride [Moles/Vol] 106 mmol/L 98-107 [facility] Work Phone: [phone] Eosinophils/100 WBC (Bld) 0.9 % 0-5 [facility] Work Phone: [phone] Glucose [Mass/Vol] 117 mg/dL 74-106 [facility] Work Phone: [phone] Comment on above: Fasting Glucose resu lt from 100 to 125 mg/dL suggests IMPAIRED HOMEOSTASIS per A.D.A. criteria. Neutrophils (Bld) [#/Vol] 1.2 10*3/uL 2.0-7.7 [facility] Work Phone: [phone] Neutrophils/100 WBC (Bld) 37.4 % 47-70 [facility] Work Phone: [phone] Potassium [Moles/Vol] 3.7 mmol/L 3.5-5.1 [facility] Work Phone: [phone] Protein [Mass/Vol] 6.4 g/dL 6.4-8.2 [facility] Work Phone: [phone] Sodium [Moles/Vol] 137 mmol/L 136-145 [facility] Work Phone: [phone] WBC (Bld) [#/Vol] 3.3 10*3/uL 4.4-11.0 [facility] Work Phone: [phone] Blood erythrocytes count (nu mber/volume)on 06-27-2021 RBC (Bld) [#/Vol] 3.82 10*6/uL 4.2-5.4 [facility] Work Phone: [phone] Blood hemoglobin measurement (mass/volume)on 06-27-2021 Hemoglobin (Bld) [Mass/Vol] 12.2 g/dL 12.0-15.0 [facility] Work Phone: Blood lymphocytes/100 leukoc yteson 06-27-2021 Lymphocytes/100 WBC (Bld) 51.7 % 19-41 [facility] Work Phone: Blood monocytes/100 leukocyt eson 06-27-2021 Monocytes/100 WBC (Bld) 8.5 % 0-10 [facility] Work Phone: Blood platelet mean volumeon 06-27-2021 Platelet mean volume (Bld) [Entitic vol] 10.5 fL 6.2-12.0 [facility] Work Phone: Determination of erythrocyte mean corpuscular volume (MCV)on 06-27-2021 MCV (RBC) [Entitic vol] 95.0 fL 81-99 [facility] Work Phone: Hematocrit Auto (Bld) [Volum e fraction]on 06-27-2021 Hematocrit (Bld) [Volume fraction] 36.3 % 37-47 [facility] Work Phone: [phone] Laboratory - Chemistry and C hemistry - challengeon 06-27-2021 ALP [Catalytic activity/Vol] 74 U/L 45-117 [facility] Work Phone: ALT [Catalytic activity/Vol] 27 U/L 13-56 [facility] Work Phone: CO2 [Moles/Vol] 25.0 mmol/L 21.0-32.0 [facility] Work Phone: Globulin (S) [Mass/Vol] 3.2 g/dL 2.2-4.2 [facility] Work Phone: Urea nitrogen/Creatinine [Mass ratio] 6.4 mg/mg 10-20 [facility] Work Phone: Laboratory - Hematology and Cell countson 06-27-2021 Erythrocyte distribution width (RBC) [Entitic vol] 44.8 fL 35.1-43.9 [facility] Work Phone: Erythrocyte distribution width (RBC) [Ratio] 12.9 % 11.6-14.6 [facility] Work Phone: Immature granulocytes/100 WBC (Bld) 0.300 % 0.0-0.9 [facility] Work Phone: Comment on above: IG% - Immature Granu locytes (promyelocytes, myelocytes and metamyelocytes) > 1% indicates that a LEFT SHIFT is Present. MCH (RBC) [Entitic mass] 31.9 pg 27.0-32.0 [facility] Work Phone: Nucleated RBC/100 WBC (Bld) [Ratio] 0.6 % 0-5 [facility] Work Phone: MCHC Auto (RBC) [Mass/Vol]on 06-27-2021 MCHC (RBC) [Mass/Vol] 33.6 g/dL 32-36 [facility] Work Phone: No Panel Informationon 06-27 Estimated GFR (MDRD) Amer 63 mL/min >60 [facility] Work Phone: Comment on above: GFR Calc Estimated GFR (MDRD) Non-Af Amer 52 mL/min >60 [facility] Work Phone: Comment on above: Non- GFR Calc Thyroid Stimulating Hormone (TSH) 0.50 uIU/mL 0.358-3.74 [facility] Work Phone: Vitamin D 25-Hydroxy 29.8 ng/mL [facility] Work Phone: Comment on above: Vitamin D 25(OH) Sta tus Range Deficiency <20 ng/mL (50nmol/L) Insufficiency 20 - 30 ng/mL (50 - 75 nmol/L) Sufficiency 30 - 100 ng/mL (75 - 250 nmol/L) Toxicity >100 ng/mL (>250 nmol/L) Platelets bldon 06-27-2021 Platelets (Bld) [#/Vol] 282 10*3/uL 150-450 [facility] Work Phone: Serum or plasma albumin rosangela urement (mass/volume)on 06-27-2021 Albumin [Mass/Vol] 3.2 g/dL 3.2-5.0 [facility] Work Phone: Serum or plasma albumin/glob ulin mass ratioon 06-27-2021 Albumin/Globulin [Mass ratio] 1.0 {ratio} 0.9-2.4 [facility] Work Phone: Serum or plasma calcium rosangela urement (mass/volume)on 06-27-2021 Calcium [Mass/Vol] 8.6 mg/dL 8.5-10.1 [facility] Work Phone: Serum or plasma creatinine m easurement (mass/volume)on 06-27-2021 Creatinine [Mass/Vol] 1.10 mg/dL 0.55-1.02 [facility] Work Phone: Comment on above: The validity of the calculated GFR & GFRAA in patients over 70 years has not been determined. Clinical correlation is essential. Serum or plasma urea nitroge n measurement (mass/volume)on 06-27-2021 Urea nitrogen [Mass/Vol] 7 mg/dL 7-18 [facility] Work Phone: Thin prep Papanicolaou smear with manual screeningon 06-27-2021 Thin prep Papanicolaou smear with manual screening 24 U/L 15-37 [facility] Work Phone: Thin prep Papanicolaou smear with manual screening 6 5-15 [facility] Work Phone: No Panel Information Influenza Types A,B Direct FA ([facility]) [facility] Work Phone: Vital Signs Date Time Vital Sign Value Performing Clinician Facility 08-27-2024 20:00-0400 Diastolic blood pressure 94 mm[Hg] Dr. Harish Luis MD Work Phone: [facility] 08-27-2024 20:00-0400 Heart rate 103 /min Dr. Harish Luis MD Work Phone: [facility] 08-27-2024 20:00-0400 Respiratory rate 30 /min Dr. Harish Luis MD Work Phone: [facility] 08-27-2024 20:00-0400 Systolic blood pressure 142 mm[Hg] Dr. Harish Luis MD Work Phone: [facility] 08-27-2024 18:05-0400 Body temperature 100.9 [degF] Dr. Harish Luis MD Work Phone: [facility] 08-27-2024 18:05-0400 SaO2% (BldA) [Mass fraction] 93 % Dr. Harish Luis MD Work Phone: 1(792)272-661492 [place] [address] 08-27-2024 15:36-0400 Body height 157.[address] Harish Luis MD Work Phone: 0(416)159-554792 [place] [address] 08-27-2024 15:36-0400 Body mass index (BMI) [Ratio] 19.8 kg/m2 Dr. Harish Luis MD Work Phone: 5(746)996-936592 [place] [address] 08-27-2024 15:36-0400 Body weight [address] Harish Luis MD Work Phone: 1(539)811-259094 [place] [address] 06-04-2024 15:44-0400 Body mass index (BMI) [Ratio] 20.1 kg/m2 Dr. Harish Luis MD Work Phone: 2(242)334-665392 [place] [address] 06-04-2024 15:44-0400 Body weight [address] Harish Luis MD Work Phone: 6(561)694-620392 [place] [address] 06-04-2024 15:08-0400 Body height 157.[address] Harish Luis MD Work Phone: 4(916)979-387992 [place] [address] 06-04-2024 15:08-0400 Body temperature 97 [degF] Dr. Harish Luis MD Work Phone: 9(077)337-535192 [place] [address] 06-04-2024 15:08-0400 Diastolic blood pressure 81 mm[Hg] Dr. Harish Luis MD Work Phone: 5(311)549-659692 [place] [address] 06-04-2024 15:08-0400 Heart rate 106 /min Dr. Harish Luis MD Work Phone: 3(222)054-158192 [place] [address] 06-04-2024 15:08-0400 Respiratory rate 19 /min Dr. Harish Luis MD Work Phone: 8(680)152-174092 [place] [address] 06-04-2024 15:08-0400 SaO2% (BldA) [Mass fraction] 98 % Dr. Harish Luis MD Work Phone: [facility] 06-04-2024 15:08-0400 Systolic blood pressure 130 mm[Hg] Dr. Harish Luis MD Work Phone: [facility] 07-30-2023 18:02-0400 Body temperature 97.6 [degF] [facility] 07-30-2023 18:02-0400 Diastolic blood pressure 63 mm[Hg] [facility] 07-30-2023 18:02-0400 Heart rate 90 /min [facility] 07-30-2023 18:02-0400 Inhaled oxygen flow rate 3 L/min [facility] 07-30-2023 18:02-0400 Respiratory rate 17 /min [facility] 07-30-2023 18:02-0400 SaO2% (BldA) [Mass fraction] 95 % [facility] 07-30-2023 18:02-0400 Systolic blood pressure 113 mm[Hg] [facility] 07-30-2023 13:51-0400 Body mass index (BMI) [Ratio] 22.4 kg/m2 [facility] 07-30-2023 13:51-0400 Body weight 55.6 kg [facility] 07-30-2023 13:35-0400 Body height 157.48 cm [facility] 07-24-2023 22:13-0400 Body temperature 97.1 [degF] [facility] 07-24-2023 22:13-0400 Diastolic blood pressure 77 mm[Hg] [facility] 07-24-2023 22:13-0400 Heart rate 61 /min [facility] 07-24-2023 22:13-0400 Respiratory rate 18 /min [facility] 07-24-2023 22:13-0400 SaO2% (BldA) [Mass fraction] 93 % [facility] 07-24-2023 22:13-0400 Systolic blood pressure 137 mm[Hg] [facility] 07-24-2023 19:51-0400 Body height 157.48 cm [facility] 03-17-2023 13:31-0500 Body height 160.02 cm [facility] 03-17-2023 13:31-0500 Body temperature 98 [degF] [facility] 03-17-2023 13:31-0500 Diastolic blood pressure 73 mm[Hg] [facility] 03-17-2023 13:31-0500 Heart rate 87 /min [facility] 03-17-2023 13:31-0500 Respiratory rate 14 /min [facility] 03-17-2023 13:31-0500 SaO2% (BldA) [Mass fraction] 97 % [facility] 03-17-2023 13:31-0500 Systolic blood pressure 128 mm[Hg] [facility] 11-04-2022 09:15-0400 Body temperature 98.2 [degF] Dr. Harish Luis Work Phone: [facility] 11-04-2022 09:15-0400 Diastolic blood pressure 75 mm[Hg] Dr. Harish Luis Work Phone: [facility] 11-04-2022 09:15-0400 Heart rate 88 /min Dr. Harish Luis Work Phone: [facility] 11-04-2022 09:15-0400 Respiratory rate 14 /min Dr. Harsih Luis Work Phone: [facility] 11-04-2022 09:15-0400 SaO2% (BldA) [Mass fraction] 96 % Dr. Harish Luis Work Phone: [facility] 11-04-2022 09:15-0400 Systolic blood pressure 137 mm[Hg] Dr. Harish Luis Work Phone: [facility] 11-03-2022 12:44-0400 Body height 160.[address] Harish Luis Work Phone: [facility] 11-03-2022 12:44-0400 Body weight 48.[address] Harish Luis Work Phone: [facility] 11-03-2022 10:59-0400 Body mass index (BMI) [Ratio] 18.9 kg/m2 Dr. Harish Luis Work Phone: [facility] 11-01-2022 11:00-0400 Diastolic blood pressure 54 mm[Hg] Dr. Harish Luis Work Phone: [facility] 11-01-2022 11:00-0400 Systolic blood pressure 110 mm[Hg] Dr. Harish Luis Work Phone: [facility] 11-01-2022 10:01-0400 Body temperature 98.3 [degF] Dr. Harish Luis Work Phone: 7(509)361-956392 [place] [address] 11-01-2022 10:01-0400 Heart rate 69 /min Dr. Harish Luis Work Phone: 1(085)918-238292 [place] [address] 11-01-2022 10:01-0400 Respiratory rate 13 /min Dr. Harish Luis Work Phone: 8(375)594-346992 [place] [address] 11-01-2022 10:01-0400 SaO2% (BldA) [Mass fraction] 99 % Dr. Harish Luis Work Phone: 7(032)930-225092 [place] [address] 11-01-2022 07:48-0400 Body height 159.[address] Harish Luis Work Phone: [facility] 11-01-2022 07:48-0400 Body mass index (BMI) [Ratio] 19.7 kg/m2 Dr. Harish Luis Work Phone: [facility] 11-01-2022 07:48-0400 Body weight 50.[address] Harish Luis Work Phone: [facility] 10-14-2022 08:16-0400 SaO2% (BldA) [Mass fraction] 95 % Dr. Harish Luis Work Phone: [facility] 10-14-2022 04:08-0400 Body mass index (BMI) [Ratio] 19.4 kg/m2 Dr. Harish Luis Work Phone: [facility] 10-14-2022 04:08-0400 Body weight 49.[address] Harish Luis Work Phone: [facility] 10-14-2022 04:06-0400 Body temperature 98.6 [degF] Dr. Harish Luis Work Phone: [facility] 10-14-2022 04:06-0400 Diastolic blood pressure 62 mm[Hg] Dr. Harish Luis Work Phone: [facility] 10-14-2022 04:06-0400 Heart rate 79 /min Dr. Harish Luis Work Phone: [facility] 10-14-2022 04:06-0400 Respiratory rate 16 /min Dr. Harish Luis Work Phone: [facility] 10-14-2022 04:06-0400 Systolic blood pressure 105 mm[Hg] Dr. Harish Lusi Work Phone: [facility] 10-13-2022 15:38-0400 Body height 160.[address] Harish Luis Work Phone: [facility] 10-13-2022 14:58-0400 Body temperature 98.1 [degF] Dr. Harish Luis Work Phone: [facility] 10-13-2022 14:58-0400 Diastolic blood pressure 67 mm[Hg] Dr. Harish Luis Work Phone: [facility] 10-13-2022 14:58-0400 Heart rate 74 /min Dr. Harish Luis Work Phone: [facility] 10-13-2022 14:58-0400 Respiratory rate 16 /min Dr. Harish Luis Work Phone: [facility] 10-13-2022 14:58-0400 SaO2% (BldA) [Mass fraction] 95 % Dr. Harish Luis Work Phone: [facility] 10-13-2022 14:58-0400 Systolic blood pressure 121 mm[Hg] Dr. Harish Luis Work Phone: 6(168)271-709492 [place] [address] 10-13-2022 10:04-0400 Body height 160.[address] Harish Luis Work Phone: 4(401)271-859294 [place] [address] 10-13-2022 10:04-0400 Body mass index (BMI) [Ratio] 18.6 kg/m2 Dr. Harish Luis Work Phone: 6(973)410-459094 [place] [address] 10-13-2022 10:04-0400 Body weight 47.[address] Harish Luis Work Phone: 5(689)484-025294 [place] [address] 08-26-2022 04:35-0400 Diastolic blood pressure 79 mm[Hg] Dr. Harish Luis Work Phone: 8(755)829-691794 [place] [address] 08-26-2022 04:35-0400 Heart rate 69 /min Dr. Harish Luis Work Phone: 5(112)111-773494 [place] [address] 08-26-2022 04:35-0400 Respiratory rate 15 /min Dr. Harish Luis Work Phone: 3(154)123-388994 [place] [address] 08-26-2022 04:35-0400 SaO2% (BldA) [Mass fraction] 95 % Dr. Harish Luis Work Phone: 0(525)841-536494 [place] [address] 08-26-2022 04:35-0400 Systolic blood pressure 143 mm[Hg] Dr. Harish Luis Work Phone: 2(855)662-469094 [place] [address] 08-26-2022 02:42-0400 Body mass index (BMI) [Ratio] 19.6 kg/m2 Dr. Harish Luis Work Phone: 4(840)985-035094 [place] [address] 08-26-2022 02:42-0400 Body temperature 97.5 [degF] Dr. Harish Luis Work Phone: 9(555)650-783394 [place] [address] 08-26-2022 02:42-0400 Body weight 50.[address] Harish Luis Work Phone: 7(722)296-547092 [place] [address] 08-03-2022 15:30-0400 Body temperature 98.1 [degF] Dr. Harish Luis Work Phone: 4(573)535-600594 [place] [address] 08-03-2022 15:30-0400 Diastolic blood pressure 81 mm[Hg] Dr. Harish Luis Work Phone: [facility] 08-03-2022 15:30-0400 Heart rate 66 /min Dr. Harish Luis Work Phone: [facility] 08-03-2022 15:30-0400 Respiratory rate 16 /min Dr. Harish Luis Work Phone: [facility] 08-03-2022 15:30-0400 SaO2% (BldA) [Mass fraction] 93 % Dr. Harish Luis Work Phone: [facility] 08-03-2022 15:30-0400 Systolic blood pressure 133 mm[Hg] Dr. Harish Luis Work Phone: [facility] 08-03-2022 12:57-0400 Body mass index (BMI) [Ratio] 21.4 kg/m2 Dr. Harish Luis Work Phone: 7(004)166-289592 [place] [address] 08-03-2022 11:31-0400 Inhaled oxygen flow rate 2 L/min Dr. Harish Luis Work Phone: 2(881)503-268392 [place] [address] 08-02-2022 14:18-0400 Body weight 54.[address] Harish Luis Work Phone: [facility] 07-29-2022 09:48-0400 Body temperature 97.2 [degF] Dr. Harish Luis Work Phone: [facility] 07-29-2022 09:48-0400 Diastolic blood pressure 78 mm[Hg] Dr. Harish Luis Work Phone: [facility] 07-29-2022 09:48-0400 Heart rate 90 /min Dr. Harish Luis Work Phone: [facility] 07-29-2022 09:48-0400 Inhaled oxygen flow rate 4 L/min Dr. Harish Luis Work Phone: [facility] 07-29-2022 09:48-0400 Respiratory rate 20 /min Dr. Harish Luis Work Phone: 1(715)710-794092 [place] [address] 07-29-2022 09:48-0400 SaO2% (BldA) [Mass fraction] 95 % Dr. Harish Luis Work Phone: 4(765)269-657392 [place] [address] 07-29-2022 09:48-0400 Systolic blood pressure 112 mm[Hg] Dr. Harish Luis Work Phone: 8(752)606-440394 [place] [address] 07-29-2022 07:43-0400 Body height 160.[address] Harish Luis Work Phone: 4(091)961-628094 [place] [address] 07-29-2022 07:43-0400 Body mass index (BMI) [Ratio] 24.2 kg/m2 Dr. Harish Luis Work Phone: 1(166)032-783694 [place] [address] 07-29-2022 07:43-0400 Body weight 62.[address] Harish Luis Work Phone: 3(601)626-517994 [place] [address] 04-27-2022 08:40-0500 Body temperature 97.5 [degF] Dr. Harish Luis Work Phone: 5(914)984-796394 [place] [address] 04-27-2022 08:40-0500 Diastolic blood pressure 62 mm[Hg] Dr. Harish Luis Work Phone: 6(096)507-995394 [place] [address] 04-27-2022 08:40-0500 Heart rate 79 /min Dr. Harish Luis Work Phone: 2(352)120-536494 [place] [address] 04-27-2022 08:40-0500 Respiratory rate 16 /min Dr. Harish Luis Work Phone: 9(593)161-809594 [place] [address] 04-27-2022 08:40-0500 SaO2% (BldA) [Mass fraction] 96 % Dr. Harish Luis Work Phone: 4(767)654-105994 [place] [address] 04-27-2022 08:40-0500 Systolic blood pressure 105 mm[Hg] Dr. Harish Luis Work Phone: 5(120)794-074194 [place] [address] 04-27-2022 06:26-0500 Body height 160.[address] Harish Luis Work Phone: 9(234)567-886794 [place] [address] 04-27-2022 06:26-0500 Body mass index (BMI) [Ratio] 18.3 kg/m2 Dr. Harish Luis Work Phone: [facility] 04-27-2022 06:260500 Body weight [address] Harish Luis Work Phone: [facility] Encounters Encounter Date Encounter Type Care Provider Facility Start: 08-27-2024 Evaluation and management of inpatient Dr. Christofer Espino DO -Progressive Care Unit Work Phone: Start: 07-15-2024 End: 07-15-[address] Harish Luis MD -Cat Scan [facility] Work Phone: Start: 07-15-2024 End: 07-15-2024 ambulatory Harish Mark Luis Facility:[facility] Start: 06-04-2024 End: 06-04-2024 Emergency department patient visit Dr. Harish Luis MD Work Phone: -Emergency Department Work Phone: Start: 03-31-2024 End: 03-31-[address] Harish Luis MD -Cat Scan, [facility] Work Phone: Start: 03-31-2024 End: 03-31-2024 ambulatory Harish Chi Toby Facility:[facility] Start: 02-19-2024 End: 02-19-[address] Harish Luis MD -Laboratory, Phy Office [facility] Start: 02-19-2024 End: 02-19-2024 ambulatory Harish Chi Toby Facility:[facility] Start: 01-09-2024 End: 01-09-2024 ambulatory Harish Chi Toby Facility:[facility] Start: 01-03-2024 ambulatory Harish Chi Toby Facility:[facility] Start: 01-03-2024 End: 01-04-2024 Evaluation and management of inpatient Harish Chi Toby Facility:[facility] Start: 12-12-2023 End: 12-12-2023 ambulatory Jesse Tovar Facility:[facility] Start: 12-06-2023 End: 12-06-2023 ambulatory Daniel Mollison Facility:[facility] Start: 11-28-2023 End: 11-28-2023 ambulatory Daniel Mollison Facility:[facility] Start: 11-02-2023 End: 11-02-2023 ambulatory Daniel Mollison Facility:[facility] Start: 10-18-2023 ambulatory Daniel Mollison Facility :[facility] Start: 10-12-2023 ambulatory Daniel Mollison Facility :[facility] Start: 10-01-2023 ambulatory Daniel Mollison Facility :[facility] Start: 08-29-2023 End: 08-29-2023 Emergency department patient visit Xu Macias Facility:[facility] Start: 08-11-2023 End: 08-11-2023 Emergency department patient visit Guilherme Collins Facility:[facility] Start: 08-08-2023 End: 08-08-2023 ambulatory Harish Chi Toby Facility:[facility] Start: 08-06-2023 End: 08-06-2023 ambulatory Harish Chi Toby Facility:[facility] Start: 07-31-2023 ambulatory Harish Chi Toby [facility] Start: 07-30-2023 ambulatory Anastasia Korey Khan Facility :[facility] Start: 07-30-2023 End: 08-04-2023 Evaluation and management of inpatient [facility]-Progressive Care Unit Work Phone: Start: 07-27-2023 Patient encounter procedure [facility]-Radiology, [facility] Work Phone: Start: 07-27-2023 End: 07-27-2023 ambulatory Harish Chi Toby Facility:[facility] Start: 07-24-2023 End: 07-24-2023 Emergency department patient visit [facility]-Emergency Department Work Phone: Start: 07-11-2023 End: 07-11-2023 ambulatory [facility] Work Phone: Start: 07-11-2023 End: 07-11-2023 Patient encounter procedure [facility]-Laboratory, Phy Office 3rd Flr Start: 06-27-2023 End: 06-27-2023 ambulatory [facility] Work Phone: Start: 06-27-2023 End: 06-27-2023 Patient encounter procedure [facility]-Laboratory, Phy Office 3rd Flr Start: 03-17-2023 End: 03-17-2023 Emergency department patient visit [facility]-Emergency Department Work Phone: Start: 01-01-2023 End: 01-01-[address] Harish Luis Work Phone: [facility] Work Phone: Start: 01-01-2023 End: 01-01-[address] Harish Luis Work Phone: [facility]-Laboratory, Phy Office 3rd Flr Start: 11-04-2022 Non-patient / Non-visit Dr. Levar Luis Work Phone: [facility] Work Phone: Start: 11-03-2022 Non-patient / Non-visit Dr. Levar Luis Work Phone: [facility] Start: 11-03-2022 Non-patient / Non-visit Dr. Levar Luis Work Phone: [facility] Work Phone: Start: 11-03-2022 End: 11-03-2022 Non-patient / Non-visit Dr. Harish Luis Work Phone: [facility] Work Phone: Start: 11-02-2022 Non-patient / Non-visit Dr. Levar Luis Work Phone: [facility] Start: 11-02-2022 Non-patient / Non-visit Dr. Levar Luis Work Phone: [facility] Work Phone: Start: 11-01-2022 Non-patient / Non-visit Dr. Levar Luis Work Phone: [facility] Work Phone: Start: 11-01-2022 End: 11-04-2022 Evaluation and management of inpatient Dr. Harish Luis Work Phone: [facility]-Progressive Care Unit Work Phone: Start: 10-14-2022 Non-patient / Non-visit Dr. Levar Luis Work Phone: [facility] Start: 10-13-2022 Non-patient / Non-visit Dr. Levar Luis Work Phone: [facility] Work Phone: Start: 10-13-2022 End: 10-14-2022 Evaluation and management of inpatient Dr. Harish Luis Work Phone: [facility]-Medical Surgical 3 Work Phone: Start: 10-12-2022 End: 10-12-[address] Harish Luis Work Phone: [facility] Work Phone: Start: 10-12-2022 End: 10-12-[address] Harish Luis Work Phone: [facility] Work Phone: Start: 08-26-2022 End: 08-26-2022 Emergency department patient visit Dr. Harish Luis Work Phone: [facility]-Emergency Department Work Phone: Start: 08-03-2022 Non-patient / Non-visit Dr. Levar Luis Work Phone: [facility] Start: 08-02-2022 Non-patient / Non-visit Dr. Levar Luis Work Phone: [facility] Start: 08-02-2022 Non-patient / Non-visit Dr. Levar Luis Work Phone: [facility] Work Phone: Start: 08-01-2022 Non-patient / Non-visit Dr. Levar Luis Work Phone: [facility] Start: 08-01-2022 Non-patient / Non-visit Dr. Levar Luis Work Phone: [facility] Work Phone: Start: 07-31-2022 Non-patient / Non-visit Dr. Levar Luis Work Phone: [facility] Work Phone: Start: 07-30-2022 Non-patient / Non-visit Dr. Levar Luis Work Phone: [facility] Work Phone: Start: 07-29-2022 Non-patient / Non-visit Dr. Levar Luis Work Phone: [facility] Work Phone: Start: 07-29-2022 End: 08-03-2022 Evaluation and management of inpatient Dr. Harish Luis Work Phone: [facility]-Progressive Care Unit Start: 07-06-2022 End: 07-06-[address] Harish Luis Work Phone: [facility] Work Phone: Start: 07-06-2022 End: 07-06-[address] Harish Luis Work Phone: [facility] Start: 06-28-2022 End: 06-28-[address] Harish Luis Work Phone: [facility]-Pulmonary Services/Neurology Start: 04-27-2022 End: 04-27-2022 Admission to same day surgery center Dr. Harish Luis Work Phone: [facility]-Surgical Day Care Start: 04-24-2022 End: 04-24-2022 Non-patient / Non-visit Dr. Harish Luis Work Phone: [facility] Start: 04-10-2022 End: 04-10-2022 ambulatory [facility] Work Phone: Start: 04-10-2022 End: 04-10-2022 [facility] Start: 03-31-2022 End: 03-31-2022 ambulatory [facility] Work Phone: Start: 03-31-2022 End: 03-31-2022 [facility] Start: 12-28-2021 End: 12-28-2021 ambulatory [facility] Work Phone: Start: 12-28-2021 End: 12-28-2021 Patient encounter procedure [facility]-Laboratory, Phy Office 3rd Flr Start: 12-01-2021 End: 12-01-2021 ambulatory [facility] Work Phone: Start: 12-01-2021 End: 12-01-2021 [facility] Start: 06-27-2021 End: 06-27-2021 Patient encounter procedure [facility]-Laboratory, Phy Office 3rd Flr Procedures Date Procedure Procedure Detail Performing Clinician Start: 08-27-2024 Urnls dip stick/tablet reagent auto microscopy Dr. Harish Luis MD Work Phone: Start: 08-27-[address] Harish sanderson MD Work Phone: Start: 08-27-2024 Plain chest X-ray Dr. Harish Luis MD Work Phone: Start: 07-15-2024 Vitamin D, 25-hydroxy measurement Dr. Levar Luis MD Work Phone: Comment on above: Vitamin D StatusDeficiency: <20 ng/mL (5 0nmol/L)Insufficiency: 20-30 ng/mL (50-75 nmol/L)Sufficiency: 30-100 ng/mL (75-250 nmol/L)Toxicity: >100 ng/mL (>250 nmol/L) Start: 07-15-2024 CT of head without contrast Dr. Harish Luis MD Work Phone: Start: 06-04-2024 Plain X-ray of shoulder Dr. Harish Luis MD Work Phone: Start: 03-31-2024 CT of head without contrast Dr. Harish Luis MD Work Phone: Start: 03-31-[address] Harish Luis MD Work Phone: Start: 02-19-2024 SARS-CoV-2, Influenza & RSV (PCR) Dr. Levar Luis MD Work Phone: Start: 07-30-2023 CT angiography of chest with contrast Start: 07-30-2023 CT cervical spine without contrast Start: 07-30-2023 CT of face Start: 07-30-2023 CT of head without contrast Start: 07-30-2023 Plain chest X-ray Start: 07-30-2023 Plain X-ray of shoulder Start: 07-30-2023 SARS-CoV-2, Influenza & RSV (PCR) Start: 07-27-2023 Diagnostic radiography of abdomen, decubitus and erect Start: 07-24-2023 Plain X-ray of shoulder Start: 07-24-2023 Plain x-ray of humerus Start: 06-27-2023 Urine culture Start: 03-17-2023 X-ray of lumbar spine, two or three views Start: 11-03-[address] Harish Luis Work Phone: Start: 11-02-[address] Harish Luis Work Phone: Start: 11-01-[address] Harish Luis Work Phone: Start: 11-01-2022 Investigation of transfusion reaction Dr. Harish Luis Work Phone: Start: 11-01-2022 SARS-CoV-2 & FLU Antigen (Rapid) Dr. Harish Luis Work Phone: Start: 11-01-[address] Harish Luis Work Phone: Start: 11-01-2022 Plain chest X-ray Dr. Harish Luis Work Phone: Start: 11-01-2022 CT cervical spine without contrast Dr. Connor Luis Work Phone: Start: 11-01-2022 CT of head without contrast Dr. Harish Luis Work Phone: Start: 10-13-2022 Computed tomography of abdomen and pelvis with intravenous contrast Dr. Harish Luis Work Phone: Start: 10-12-2022 End: 10-12-2022 Plain chest X-ray Dr. Harish Luis Work Phone: Start: 10-12-2022 CT of head without contrast Dr. Harish Luis Work Phone: Start: 08-26-2022 Radiography of thoracic spine Dr. Harish neal Work Phone: Start: 08-26-2022 CT cervical spine without contrast Dr. Connor Luis Work Phone: Start: 08-26-2022 CT of head without contrast Dr. Harish Luis Work Phone: Start: 08-26-2022 Pelvis X-ray Dr. Harish Luis Work Phone: Start: 08-02-2022 CT angiography of head and neck Dr. Harish Luis Work Phone: Start: 08-02-2022 CT of head without contrast Dr. Harish Luis Work Phone: Start: 08-02-[address] Harish Luis Work Phone: Start: 08-01-[address] Harish Luis Work Phone: Start: 07-30-2022 Streptococcus pneumoniae Antigen (M Dr. Harish Luis Work Phone: Start: 07-30-2022 Plain chest X-ray Dr. Harish Luis Work Phone: Start: 07-29-2022 Bacteria identified in Blood by Culture Dr. Harish Luis Work Phone: Start: 07-29-2022 SARS-CoV-2 & FLU Antigen (Rapid) Dr. Harish Luis Work Phone: Start: 07-29-2022 Plain chest X-ray Dr. Harish Luis Work Phone: Start: 07-06-2022 CT of head without contrast Dr. Harish Luis Work Phone: Start: 06-28-2022 Influenza Types A,B Direct FA (STEPHANIE) Dr. Harish Luis Work Phone: Start: 06-28-2022 Respiratory syncytial virus antigen assay Dr. Harish Luis Work Phone: Start: 04-27-[address] Harish Luis Work Phone: Start: 04-27-2022 X-ray of lumbar spine, two or three views Dr. Harish Luis Work Phone: Start: 04-24-2022 Plain chest X-ray Dr. Harish Luis Work Phone: Influenza Types A,B Direct FA (STEPHANIE) Influenza Types A,B Direct FA (STEPHANIE) Influenza Types A,B Direct FA (STEPHANIE) Respiratory syncytia l virus antigen assay Respiratory syncytia l virus antigen assay Respiratory syncytia l virus antigen assay Plan of Treatment Date Care Activity Detail Author Start: 08-27-2024 Streptococcus pneumoniae antigen assay [facility] Start: 08-27-2024 Hospital admission, emergency, from emergency room, medical nature [facility] Start: 08-27-2024 Verification routine [facility] Start: 08-27-2024 Admission procedure [facility] Start: 08-27-2024 End: 08-27-2024 [facility] Start: 08-27-2024 Bacteria identified in Blood by Culture Blood Culture [facility] Start: 08-27-2024 Bacteria identified in Urine by Culture Urine Culture [facility] Start: 06-04-2024 [facility] Start: 07-30-2023 Verification routine [facility] Start: 07-30-2023 Legionella pneumophila Ag [Presence] in Urine [facility] Start: 07-30-2023 Respiratory pathogens DNA and RNA panel - Respiratory specimen by ANTIONE with probe detection [facility] Start: 07-30-2023 Streptococcus pneumoniae antigen assay [facility] Start: 07-30-2023 [facility] Start: 07-30-2023 Admission procedure [facility] Start: 07-30-2023 Hospital admission, emergency, from emergency room, medical nature [facility] Start: 07-30-2023 Gas panel - Venous blood [facility] Start: 07-30-2023 [facility] Start: 07-24-2023 [facility] Start: 03-17-2023 [facility] Start: 11-04-2022 Patient discharge [facility] Start: 11-03-2022 Consultation [facility] Start: 11-03-2022 Care planning and problem solving actions [facility] Start: 11-02-2022 Catheterization of vein [facility] Start: 11-02-2022 Referral to gastroenterology service [facility] Start: 11-01-2022 Following clinical pathway protocol [facility] Start: 11-01-2022 Assessment of risk of venous thromboembolism [facility] Start: 11-01-2022 Catheterization of vein [facility] Start: 11-01-2022 Insertion of catheter into peripheral vein [facility] Start: 11-01-2022 Measuring intake and output [facility] Start: 11-01-2022 Providing care according to standard [facility] Start: 11-01-2022 Provision of activity privileges [facility] Start: 11-01-2022 Referral to occupational therapist [facility] Start: 11-01-2022 Referral to service [facility] Start: 11-01-2022 Speech therapy assessment [facility] Start: 11-01-2022 Tobacco use cessation education [facility] Start: 11-01-2022 [facility] Start: 11-01-2022 Admission procedure [facility] Start: 11-01-2022 Referral to service [facility] Start: 11-01-2022 Inhalation therapy procedure [facility] Start: 11-01-2022 Patient referral to dietitian [facility] Start: 10-14-2022 Patient discharge [facility] Start: 10-14-2022 Urinary bladder residual urine study [facility] Start: 10-14-2022 Removal of urinary catheter [facility] Start: 10-14-2022 Removal of urinary catheter [facility] Start: 10-14-2022 Vitamin B12 measurement [facility] Start: 10-14-2022 Vitamin D, 25-hydroxy measurement [facility] Start: 10-13-2022 Following clinical pathway protocol [facility] Start: 10-13-2022 Ambulation without limitation [facility] Start: 10-13-2022 Assessment of risk of venous thromboembolism [facility] Start: 10-13-2022 Incentive spirometry [facility] Start: 10-13-2022 Insertion of catheter into peripheral vein [facility] Start: 10-13-2022 Measuring intake and output [facility] Start: 10-13-2022 Oxygen therapy [facility] Start: 10-13-2022 Providing care according to standard [facility] Start: 10-13-2022 Provision of activity privileges [facility] Start: 10-13-2022 Referral to occupational therapist [facility] Start: 10-13-2022 Referral to service [facility] Start: 10-13-2022 [facility] Start: 10-13-2022 Verification routine [facility] Start: 10-13-2022 Referral to general surgeon [facility] Start: 10-13-2022 Admission procedure [facility] Start: 10-13-2022 End: 10-13-2022 [facility] Start: 08-03-2022 Patient discharge [facility] Start: 08-02-2022 End: 08-03-2022 [facility] Start: 08-02-2022 Cardiac monitoring [facility] Start: 08-02-2022 Catheterization of vein [facility] Start: 08-02-2022 Continuous pulse oximetry [facility] Start: 08-02-2022 Elevation of head of bed [facility] Start: 08-02-2022 Exercises [facility] Start: 08-02-2022 Implementation of planned interventions [facility] Start: 08-02-2022 Notification of physician [facility] Start: 08-02-2022 Tobacco use cessation education [facility] Start: 08-01-2022 Catheterization of vein [facility] Start: 08-01-2022 Referral to gastroenterology service [facility] Start: 07-31-2022 Physiotherapy of chest [facility] Start: 07-30-2022 Chest 1 View (Portable) Chest 1 View (Portable) [facility] Start: 07-30-2022 XR Chest Single view [facility] Start: 07-29-2022 Speech therapy assessment [facility] Start: 07-29-2022 Introduction of urinary catheter [facility] Start: 07-29-2022 Urinary bladder residual urine study [facility] Start: 07-29-2022 Following clinical pathway protocol [facility] Start: 07-29-2022 Ambulation without limitation [facility] Start: 07-29-2022 Assessment of risk of venous thromboembolism [facility] Start: 07-29-2022 Catheterization of vein [facility] Start: 07-29-2022 Inhalation therapy procedure [facility] Start: 07-29-2022 Insertion of catheter into peripheral vein [facility] Start: 07-29-2022 Measuring intake and output [facility] Start: 07-29-2022 Oxygen therapy [facility] Start: 07-29-2022 Providing care according to standard [facility] Start: 07-29-2022 Referral to occupational therapist [facility] Start: 07-29-2022 Referral to service [facility] Start: 07-29-2022 Respiratory secretion precautions [facility] Start: 07-29-2022 Legionella pneumophila Ag [Presence] in Urine [facility] Start: 07-29-2022 Streptococcus pneumoniae antigen assay [facility] Start: 07-29-2022 Verification routine [facility] Start: 07-29-2022 Admission procedure [facility] Start: 07-29-2022 End: 07-29-2022 [facility] Start: 07-29-2022 Blood culture [facility] Start: 07-29-2022 End: 07-30-2022 [facility] Start: 07-29-2022 Patient referral to dietitian [facility] Start: 04-27-2022 Anes integ musc & nrv head neck&posterior trunk ANESTH HEAD/NECK/PTRUNK [facility] Start: 04-27-2022 Revj/rmvl implanted spinal neurostim generator REVISE/REMOVE NEURORECEIVER [facility] Start: 04-27-2022 Patient discharge [facility] Bacteria identified in Blood by Culture Blood Culture [facility] Influenza virus type s A and B and subtypes panel - Respiratory specimen [facility] Lactic acid measurement [facility] Legionella pneumophi la Ag [Presence] in Urine [facility] Magnesium [Mass/volu me] in Serum or Plasma [facility] Patient Education [facility] Work Phone: Patient referral [facility] Work Phone: Procalcitonin [Mass/ volume] in Serum or Plasma [facility] Urine culture [facility] Vitamin B12 measurement [facility] Vitamin D, 25-hydrox y measurement [facility] Immunizations Immunization Date Immunization Notes Care Provider Fa [facility] 11-16-2023 influenza, injectabl e, quadrivalent, preservative free Dr. Harish Luis MD Work Phone: [facility] 06-27-2021 Covid (Moderna) Dr. Harish Luis Work Phone: [facility] 03-14-2021 Covid (Hansel & Hansel) Dr. Harish Luis Work Phone: [facility] 12-27-2020 influenza, injectabl e, quadrivalent, preservative free Dr. Harish Luis Work Phone: [facility] 12-27-2020 influenza, seasonal, injectable Dr. Harish Luis Work Phone: [facility] 05-27-2020 Covid (H[employer]el & Hansel) Dr. Harish Luis Work Phone: [facility] 01-20-[address] Harish Luis Work Phone: [facility] 12-29-2019 influenza, injectabl e, quadrivalent, preservative free Dr. Hraish Luis Work Phone: [facility] 12-29-2019 influenza, seasonal, injectable Dr. Harish Luis Work Phone: [facility] 11-13-[address] Harish Luis Work Phone: [facility] 04-07-2019 influenza, injectabl e, quadrivalent, preservative free Dr. Harish Luis Work Phone: [facility] 04-07-2019 influenza, seasonal, injectable Dr. Harish Luis Work Phone: [facility] 12-17-2017 influenza, injectabl e, quadrivalent, preservative free Dr. Harish Luis Work Phone: [facility] 12-17-2017 influenza, seasonal, injectable Dr. Harish Luis Work Phone: [facility] 11-29-2016 influenza, injectabl e, quadrivalent, preservative free Dr. Harish Luis Work Phone: [facility] 11-29-2016 influenza, seasonal, injectable Dr. Harish Luis Work Phone: [facility] Payers Date Payer Category Payer Self-pay [id number] 2016 Medicare [id number] Unknown [id number] Unknown [id number] Unknown [id number] Unknown [id number] Unknown [id number] Unknown [id number] [id number] 40.1.561167.3.579.2.462 Unknown [id number] 2.16.8 40.1.848580.3.579.2.462 Unknown [id number] 2.16.8 40.1.615774.3.579.2.462 Unknown [id number] 2.16.8 40.1.604214.3.579.2.462 Unknown [id number] 2.16.8 40.1.290494.3.579.2.462 Unknown [id number] 2.16.8 40.1.615707.3.579.2.462 Unknown [id number] 2.16.8 40.1.881465.3.579.2.462 Unknown [id number] 2.16.8 40.1.256886.3.579.2.462 Unknown [id number] 2.16.8 40.1.697858.3.579.2.462 Unknown [id number] 2.16.8 40.1.684322.3.579.2.462 Unknown [id number] 2.16.8 40.1.720434.3.579.2.462 Unknown [id number] 2.16.8 40.1.732729.3.579.2.462 Unknown [id number] 2.16.8 40.1.002203.3.579.2.462 Unknown [id number] 2.16.8 40.1.424248.3.579.2.462 Unknown [id number] 2.16.8 40.1.395181.3.579.2.462 Unknown [id number] 2.16.8 40.1.145954.3.579.2.462 Unknown [id number] 2.16.8 40.1.688461.3.579.2.462 Unknown [id number] 2.16.8 40.1.413353.3.579.2.462 Unknown [id number] 2.16.8 40.1.583874.3.579.2.462 Unknown [id number] 2.16.8 40.1.996456.3.579.2.462 Unknown [id number] 2.16.8 40.1.054810.3.579.2.462 Unknown [id number] 2.16.8 40.1.962713.3.579.2.462 Unknown [id number] 2.16.8 40.1.365879.3.579.2.462 Social History Date Type Detail Facility Start: 02-17-2020 End: 07-30-2023 Tobacco smoking status NHIS Unknown if ever smoked [facility] Start: 02-17-2020 None [facility] Start: 02-17-2020 Spouse/ Signif icant Other [facility] Start: 02-17-2020 Vapor [facility] Start: 1950 Sex Assigned At Female [facility] Start: 06-04-2024 End: 08-27-2024 Tobacco smoking status NHIS Smokes tobacco daily (finding) [facility] Start: 06-04-2024 Sex Female (finding) [facility] NEGATED: Highlighted row [facility] Medical Equipment Procedure Code Equipment Code Equipment Origin al Text Equipment Identifier Dates ABANDON LEADS FR OM EXPLANT OF NEVRO STIMULATOR FDA Start: 04-27-2022 ABANDON LEADS FR OM EXPLANT OF NEVRO STIMULATOR FDA Start: 04-27-2022 ABANDON LEADS FR OM EXPLANT OF NEVRO STIMULATOR FDA Start: 04-27-2022 ABANDON LEADS FR OM EXPLANT OF NEVRO STIMULATOR FDA Start: 04-27-2022 ABANDON LEADS FR OM EXPLANT OF NEVRO STIMULATOR FDA Start: 04-27-2022 ABANDON LEADS FR OM EXPLANT OF NEVRO STIMULATOR FDA Start: 04-27-2022 ABANDON LEADS FR OM EXPLANT OF NEVRO STIMULATOR FDA Start: 04-27-2022 ABANDON LEADS FR OM EXPLANT OF NEVRO STIMULATOR FDA Start: 04-27-2022 ABANDON LEADS FR OM EXPLANT OF NEVRO STIMULATOR FDA Start: 04-27-2022 ABANDON LEADS FR OM EXPLANT OF NEVRO STIMULATOR FDA Start: 04-27-2022 ABANDON LEADS FR OM EXPLANT OF NEVRO STIMULATOR FDA Start: 04-27-2022 ABANDON LEADS FR OM EXPLANT OF NEVRO STIMULATOR FDA Start: 04-27-2022 ABANDON LEADS FR OM EXPLANT OF NEVRO STIMULATOR FDA Start: 04-27-2022 ABANDON LEADS FR OM EXPLANT OF NEVRO STIMULATOR FDA Start: 04-27-2022 ABANDON LEADS FR OM EXPLANT OF NEVRO STIMULATOR FDA Start: 04-27-2022 ABANDON LEADS FR OM EXPLANT OF NEVRO STIMULATOR FDA Start: 04-27-2022 ABANDON LEADS FR OM EXPLANT OF NEVRO STIMULATOR FDA Start: 04-27-2022 ABANDON LEADS FR OM EXPLANT OF NEVRO STIMULATOR FDA Start: 04-27-2022 ABANDON LEADS FR OM EXPLANT OF NEVRO STIMULATOR FDA Start: 04-27-2022 ABANDON LEADS FR OM EXPLANT OF NEVRO STIMULATOR FDA Start: 04-27-2022 ABANDON LEADS FR OM EXPLANT OF NEVRO STIMULATOR FDA Start: 04-27-2022 ABANDON LEADS FR OM EXPLANT OF NEVRO STIMULATOR FDA Start: 04-27-2022 ABANDON LEADS FR OM EXPLANT OF NEVRO STIMULATOR FDA Start: 04-27-2022 ABANDON LEADS FR OM EXPLANT OF NEVRO STIMULATOR FDA Start: 04-27-2022 ABANDON LEADS FR OM EXPLANT OF NEVRO STIMULATOR FDA Start: 04-27-2022 ABANDON LEADS FR OM EXPLANT OF NEVRO STIMULATOR FDA Start: 04-27-2022 Goals Date Patient Goal Desired Activity /State Functional Status Date Assessment Result Facility 11-04-2022 Functional status Ambulates [facility] Work Phone: 10-14-2022 Functional status Ambulates [facility] Work Phone: 08-03-2022 Functional status Ambulates;Chair [facility] Work Phone: Mental Status Date Assessment Result Facility 08-27-2024 Cognitive function Voice/Name [facility] Work Phone: 07-30-2023 Cognitive function Awake;Lethargic [facility] Work Phone: 11-04-2022 Cognitive function Voice/Name [facility] Work Phone: 11-01-2022 Cognitive function Level Of Cons ciousness Awake;Follows Commands;Disoriented [facility] Work Phone: 10-13-2022 Cognitive function Appropriate;Cooperativ e [facility] Work Phone: 10-13-2022 Cognitive function Arousable To Voice/Nam e [facility] Work Phone: 10-13-2022 Cognitive function Level Of Cons ciousness Awake;Alert;Appropriate;Follow s Commands [facility] Work Phone: 08-03-2022 Cognitive function Appropriate;Cooperativ e [facility] Work Phone: 08-03-2022 Cognitive function Voice/Name [facility] Work Phone: 04-27-2022 Cognitive function Voice/Name [facility] Work Phone: Clinical Notes 10-13-2022 to 08-27-2024 Note Date & Type Note Facility 08-27-2024 Discharge summary [facility] 08-27-2024 Radiology Diagnostic study note [facility] Imaging Services [address], [place] [address] Chest 1 View (Portable) MR#: [id number] Acct: [id number] Name: CAROL ZARAGOZA Rep #: [id number] : 1950 F 74 From: Kayla Ham MD PCP: Dr. Harish Luis MD Status: REG E R Study:Chest 1 View (Portable) Date of Exam: 08/27/24 Exam# [id number] Ordering Dr: Malcom Ballard MD PROCEDURE: CHEST 1 VIEW (PORTABLE) 08/27/2024 REASON FOR EXAM: FEVER, TACHYPNEA HYPOXIA TECHNIQUE: Frontal view of the chest. COMPARISON: 01/03/2024 FINDINGS: CARDIOMEDIASTINAL BORDERS: Cardiac silhouette within normal limits in size. Mediastinal contour also unchanged with calcification of the aortic knob. LUNGS: Mildly increased patchy opacity within the left lower lobe and mildly decreased patchy opacity within the right lower lobe. Otherwise grossly unchanged PLEURA: No pleural effusion or pneumothorax seen. 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 Thoracic spinal electrode noted. RAD/Chest 1 View (Portable) IMPRESSION: Mildly increased patchy opacity within the left lower lobe and mildly decreased patchy opacity within the right lower lobe. Otherwise grossly unchanged Reading Location: [id number] CC: Dr. Harish Luis MD; Dr. Huber Ballard MD ~ Greeter: Signed [facility] 08-27-2024 Discharge summary Note Date/Time August 27, 2024 6:51pm [facility] Medical Records Department [address] [place] [address] Emergency Department Summary 08/27/24 MR#: [id number] Acct: [id number] Name: CAROL ZARAGOZA Rep #:[id number] : 1950 74 From: Huber Ballard MD PCP: Dr. Harish Luis MD Status:REG E R Location: ED ADDENDUM by Dr. Huber Ballard MD on 08/27/24 at 1851 Sinus tachycardia rate of 111. SC interval 144 ms cures duration 68 ms. QT duration 218 ms. Essie is normal. She has evidence of low voltage. There is noacute ischemic changes noted. EKG was performed at 1633 08/27/24 1851<Electronically signed by Huber Ballard MD> Cosigner Signature (if applicable): cc: Dr. Harish Luis MD ~* Signed HPI History of Present Illness Chief Complaint: Alt LOC Detail of Chief Complaint: Confusion, fever, moist nonproductive cough and ANDINO Informant: patient and spouse/S.O. Onset/Context/Timing Onset: Days Context: Sudden Onset Timing: Continuous Quality: Infectious symptoms Location: Respiratory Current Severity: Moderate Maximum Severity: Moderate Worsened by: Presumed bacterial infection Relieved by: nothing Associated Symptoms Associated Symptoms: Confusion, orthostatic lightheadedness fever Narrative Narrative: Patient is 74-year-old woman. She is a former smoker. She quit 8 years ago. She presently vapes. She is on 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 and omeprazole for GERD. She alsois on antidepressants. Patient brought in because of confusion. Patient was brought to the ER by her because of confusion. She does endorse moist cough. She does endorse shortness of breath with walking across the room. She complains of bifrontal headache. She denies light sensitivity neck pain or neckstiffness. She is not aware that she has a rash. She denies abdominal pain, nausea, vomiting or diarrhea. She denies dysuria, frequency, urgency or hematuria. Prior similar symptoms: No Recent Illness/Hospitalization: No PFSH PFSH Medical History Hypoxia Fracture of humeral head [place] Pulmonary emboli Hypoxia Aspiration pneumonia Closed head injury Anxiety and depression Cervical stenosis of spine Vitamin D deficiency Irritable bowel syndrome without diarrhea Stenosis, cervical spine Chronic cough Allergic rhinitis Insomnia HLD (hyperlipidemia) Movement disorder Gastroparesis Dysphagia Pain from implanted hardware Wears hearing aid Wears dentures Wears glasses Post-menopausal Uses wheelchair Walker as ambulation aid Ambulates with cane Arthritis High cholesterol Back pain Migraine headache Gastric reflux Former smoker Shortness of breath on exertion History of stress test Hypertension COVID-19 Scoliosis of lumbar spine Segmental and somatic dysfunction of pelvic region Segmental dysfunction of thoracic region Segmental and somatic dysfunction of lumbar region Carpal tunnel syndrome on both sides Chronic lower back pain Home Medications ?Medication ?Instructions ?Recorded ?Last Taken ?Type buspirone 7.5 mg tablet 7.5 mg PO BID ANXIETY 04/26/22 History clonazepam 1 mg tablet 1 mg PO TID ANXIETY 02/17/20 04/26/22 History doxepin 150 mg capsule 150 mg PO QHS ANXIETY Unknown History metoprolol succinate 25 mg 25 mg PO DAILY BLOOD PRESSU RE 07/30/23 Unknown History tablet,extended release 24 hr omeprazole 20 mg capsule,delayed 20 mg PO DAILY GERD 0 07/30/23 Unknown History release apixaban 5 mg tablet (Eliquis) 5 mg PO BID blood thinn er 01/03/24 Unknown History doxycycline monohydrate 100 mg 100 mg PO BID #14 tabs 01/04/24 Unknown Rx tablet Allergy/AdvReac Type Severity Reaction Status Date / Time Penicillins Allergy Rash Verified 06/04/24 15:08 Family History Mother Hypertension CVA (cerebral vascular accident) Heart disease Cerebral hemorrhage Father Cancer Hx stomach cancer and leukemia. Surgical History History of cardiac catheterization Hx of dilation and curettage History of 2 sections Hx of surgical procedure History of lumbar laminectomy Social History household members: spouse housing: house number of children: 2 Smoking Status: Current every day smoker tobacco type: e-cigarettes alcohol intake: never substance use type: does not use what type of physical activity do you participate in: none additional social history: Currently ambulating with a cane ROS ROS ED Constitutional Constitutional ED: Reports chills and fever(s) Eyes Eyes: Denies blurry vision, change in vision or diplopia ENT ENT ED: Denies ear pain, rhinorrhea or sore throat Cardiovascular Cardiovascular: Denies chest pain, orthopnea, palpitations or paroxysmal nocturnal dyspnea Respiratory/Chest Respiratory/Chest: Reports cough, dyspnea, dyspnea on exertion and sputum; Denies orthopnea or paroxysmal nocturnal dyspnea Gastrointestinal Gastrointestinal: Denies abdominal pain, constipation, diarrhea, melena, nausea or vomiting Genitourinary Genitourinary ED: Denies dysuria, hematuria or urinary frequency Musculoskeletal Musculoskeletal: Denies arthralgias, back pain, myalgias or neck pain Integumentary Denies abscess, Abrasions or rash Neurologic Neurologic: Reports headache(s) and weakness; Denies paresthesias Psychiatric Psychiatric: Denies anxiety or depression Endocrine Endocrinology: Denies cold intolerance or heat intolerance Hematologic/Lymphatic Hematologic/Lymphatic: Reports systems reviewed and no addt'l complaints, exceptas documented EXAM Physical Exam Const Vital Signs: 08/27/24 15:36 08/27/24 15:43 08/27/24 15:55 Temperature 103.2 F H 103.2 F H Temperature Source Oral Oral Pulse Rate 121 H 118 H Respiratory Rate 22 H 23 H Blood Pressure 151/111 H 151/111 H Blood Pressure Mean 124 124 Pulse Ox 91 91 Oxygen Delivery Method Room Air Room Air Room Air 08/27/24 16:13 08/27/24 16:15 08/27/24 16:30 Temperature Temperature Source Pulse Rate 114 H 113 H 112 H Respiratory Rate 22 H 26 H 18 Blood Pressure 174/99 H 172/101 H Blood Pressure Mean 121 124 Pulse Ox 94 94 Oxygen Delivery Method 08/27/24 16:43 08/27/24 16:45 08/27/24 17:00 Temperature 102.1 F H 101.9 F H Temperature Source Oral Oral Pulse Rate 108 H 112 H 108 H Respiratory Rate 22 H 30 H 36 H Blood Pressure 186/86 H 186/86 H 150/94 H Blood Pressure Mean 119 111 112 Pulse Ox 92 91 Oxygen Delivery Method Room Air Room Air 08/27/24 17:00 08/27/24 17:15 Temperature Temperature Source Pulse Rate 107 H 108 H Respiratory Rate 22 H 36 H Blood Pressure 154/70 H 150/94 H Blood Pressure Mean 95 112 Pulse Ox Oxygen Delivery Method Positive well nourished and well developed General Appearance ED: well developed and NAD; Negative for cyanotic, diaphoretic or pallor HEENT Reports dry mucous membranes HEENT Narrative: Patient not eaten since Sunday. Posterior pharynx is normal. Neck is supple. Trachea is midline. Ears are normal. Nares without discharge. Mouth ED: Yes dry mucous membranes Mouth: dry mucous membranes Eyes PERRL and EOMs intact bilaterally General Eye ED: Negative for pale conjunctiva or scleral icterus Neck no lymphadenopathy, supple and no JVD Neck Narrative: Trachea is midline. There is no stridor. Chest Wall palpation of chest normal Resp normal respiratory effort Resp Narrative: Patient is tachypneic. She has rales at the right base. Cardio regular rhythm, S1 normal heart sound, S2 normal heart sound and no murmurs Rate: tachycardic GI normal to inspection, nondistended, normoactive bowel sounds, non-tender, non-distended and no masses; Negative for hepatosplenomegaly Back/Spine no CVA tenderness Extremity normal to inspection General Extremety ED: Negative for edema or tenderness General Extremity: Negative for edema Neuro No oriented x3, CN's II-XII intact bilaterally and no sensory deficits noted Neuro Narrative: Moves all extremities. Strength appears normal. Sensorium / Orientation: Negative for alert Psych Psych Narrative: Flat affect. Depressed mood. Skin no rashes or lesions noted, no wounds and No skin turgor normal Skin Narrative: Skin turgor is poor. No obvious skin lesions noted. General Skin Exam: Negative for jaundice or pallor Sepsis Attestation Sepsis Attestation: Agree w/Sepsis Date exam was performed: 08/27/24 Time exam was performed: 16:00 Possible Source of Sepsis: Pulmonary Sepsis Organ Dysfunction Criteria Present: New/Unexplained change in mental status Fluid Resuscitation Fluid resuscitation indicated?: Yes Fluid Resuscitation ordered: Lesser volume fluid bolus ordered Amount of fluid ordered: 2,000 Reason for lesser fluid bolus:: Other (Patient is not hypotensive. Labs do not indicate that she is prerenal.) MDM MDM MDM Narrative Medical decision making narrative: Patient is encephalopathic due to infectious process. Suspect pneumonia. Sepsis order set was initiated. Patient received a fluid bolus. She was treated with Rocephin and azithromycin for community-acquired pneumonia. Suspect she has a right lower lobe pneumonia based on her exam. Clinically she is dehydrated. History & Record Review Additional record(s) reviewed:: Prior ED visit (Seen in May of this year for right shoulder contusion. Patient was seen December 2023 for altered mental status. She was found to have encephalopathy. Encephalopathy was due to UTI.) and Prior labs Lab Data Attestation: I reviewed the patient's lab results. Lab results narrative: White count is 6.5 with shift. H&H is normal. Comprehensive metabolic panel isunremarkable. Urinalysis macro was negative. In light of patient's constellation of symptoms feel that she is encephalopathic due to pneumonia. Labs: Laboratory Results - last 24 hr 08/27/24 08/27/24 16:00 16:15 WBC 6.5 RBC 3.82 L Hgb 12.1 Hct 36.2 L MCV 94.8 MCH 31.7 MCHC 33.4 RDW Std Deviation 46.5 H RDW Coeff of Mehnaz 13.2 Plt Count 332 MPV 9.6 Immature Gran % (Auto) 0.300 Neut % (Auto) 86.9 H Lymph % (Auto) 7.0 L Haakon % (Auto) 5.1 Eos % (Auto) 0.2 Baso % (Auto) 0.5 Absolute Neuts (auto) 5.6 Absolute Lymphs (auto) 0.45 L Nucleated RBC % 0 Sodium 136 Potassium 4.3 Chloride 102 Carbon Dioxide 22.4 Anion Gap 11 BUN 13 Creatinine 1.08 Estim Creat Clear Calc 35.35 L Est GFR (MDRD) Non-Af 54 L BUN/Creatinine Ratio 12.2 Glucose 91 Lactic Acid 1.1 Calcium 8.4 Total Bilirubin 0.24 AST 53 H ALT 19 Alkaline Phosphatase 97 Total Protein 6.6 Albumin 3.3 L Globulin 3.3 Albumin/Globulin Ratio 1.0 Urine Color Yellow Urine Clarity Sl Cldy Urine pH 6.0 Ur Specific [place] 1.015 Urine Protein 30 H Urine Glucose (UA) Normal Urine Ketones Negative Urine Occult Blood Negative Urine Nitrite Negative Urine Bilirubin Negative Urine Urobilinogen Normal Ur Leukocyte Esterase Negative Radiography Chest X-Ray - ED: 1 View and Read by ED Physician (Patient is slightly rotated. There is an infiltrate on the left. There may be atelectasis or early infiltrate on the right. Comparison was January 03, 2024. At that time I felt that she had a right lower lobe infiltrate. This independently interpreted by me at 1655.) Diagnostic Testing: Clinical Impression(s) from Imaging Studies Chest X-Ray 08/27/24 15:55 IMPRESSION: Mildly increased patchy opacity within the left lower lobe and mildly decreased patchy opacity within the right lower lobe. Otherwise grossly unchanged Reading Location: [facility] Management Discussion w/another healthcare provider: Hospitalist (Spoke with Dr. Espino. Full admit PCU.) Treatment and Re-Evaluation :: Patient requested pain medicine. She states normally Dilaudid works. 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 Call [facility] ([phone]) or report to the closest Emergency Room. Call 911 if necessary. 08/27/24 1724 <Electronically signed by Huber Ballard MD> Cosigner Signature (if applicable): CC: Dr. Harish Luis MD ~ Signed [facility] Work Phone: 1(281) 448-257003-19-2025 Radiology Diagnostic study note [facility] Imaging Services [address] [place] [address] Shoulder min 2 Views MR#: [id number] Acct: [id number] Name: CAROL ZARAGOZA Rep #: [id number] : 1950 F 74 From: Robert Mancuso DO PCP: Dr. Harish Luis MD Status: REG E R Study:Shoulder min 2 Views Date of Exam: 06/04/24 Exam# [id number] Ordering Dr: Mat White DO PROCEDURE: Right shoulder radiographs REASON FOR EXAM: INJURY TECHNIQUE: Four views of the right shoulder COMPARISON: None FINDINGS: See impression RAD/Shoulder min 2 Views IMPRESSION: No definite acute displaced fracture. High-riding humeral head which may relateto chronic rotator cuff tear. Mild articular surface depression of the superomedial humeral head. Chronic appearing erosive changes of the greater humeral tuberosity. Ossified joint body along the posterior glenohumeral joint measuring up to 12 mm. Severe glenohumeral joint osteoarthritis. Reading Location: [facility] CC: Dr. Irving White DO; Dr. Harish Luis MD ~ Greeter: Signed [facility]10-18-2024 [facility]05-18-2024 [facility]08-16-2023 [facility]22 11:03am Note Date/Time November 01, 2022 7: 51am [facility] Medical Records Department [address] [place] [id number] Emergency Department Summary 11/01/22 MR#: [id number] Acct: [id number] Name: CAROL ZARAGOZA Rep #:[id number] : 1950 72 From: Armando Santamaria PCP: Dr. Harish Luis MD Status:ADM I N Location: [address] History of Present Illness Chief Complaint: Weakness [facility] Medical History Allergic rhinitis Ambulates with cane Anxiety Arthritis Asthma Back pain Carpal tunnel syndrome on both sides Chronic cough Chronic lower back pain Closed head injury COVID-19 Debility Depression Depression Dysphagia Edema Former smoker Gastric reflux Gastroparesis Generalized weakness GERD High cholesterol History of stress test HLD (hyperlipidemia) Hypertension Hypoxia Insomnia Irritable bowel syndrome without diarrhea Ischemic bowel disease Low back pain Migraine Migraine headache Movement disorder Pain from implanted hardware Palpitations Palpitations Post-menopausal Scoliosis Scoliosis of lumbar spine Segmental and somatic dysfunction of lumbar region Segmental and somatic dysfunction of pelvic region Segmental dysfunction of thoracic region Shortness of breath on exertion SOB (shortness of breath) Stenosis, cervical spine Uses wheelchair Vitamin D deficiency Walker as ambulation aid Wears dentures Wears glasses Wears hearing aid Home Medications buspirone 7.5 mg tablet 7.5 mg PO BID Check with primary doctor 02/17/20 [History Last Taken 04/26/22] clonazepam 1 mg tablet 1 mg PO TID anxiety 02/17/20 [History Last Taken 04/26/22] gabapentin 400 mg capsule 400 mg PO Q6H Check with primary doctor 04/20/22 [History Last Taken 04/26/22] acetaminophen 325 mg tablet 650 mg (2 x 325 mg) PO Q6H PRN PRN Pain 1-10 Or Fever >100.7 #0 tabs 08/02/22 [Rx Last Taken Unknown] bisacodyl 10 mg rectal suppository 10 mg SC DAILY PRN Constipation 30 days #0 ea10/14/22 [Rx Last Taken Unknown] ciprofloxacin HCl 500 mg tablet 500 mg PO BID 5 days #10 tabs 10/14/22 [Rx Last Taken Unknown] metronidazole 500 mg tablet 500 mg PO Q8H 5 days #15 tabs 10/14/22 [Rx Last Taken Unknown] naproxen 500 mg tablet 500 mg PO Q12H PRN arthritis pain 30 days #0 tabs 10/14/22 [Rx Last Taken Unknown] polyethylene glycol 3350 17 gram/dose oral powder (Miralax) 17 g PO DAILY #238 grams 10/14/22 [Rx Last Taken Unknown] sennosides 8.6 mg-docusate sodium 50 mg tablet (Stool Softener-Stimulant Laxative) 2 tab PO BID 30 days #0 tabs 10/14/22 [Rx Last Taken Unknown] Allergy/AdvReac Type Severity Reaction Status Date / Time hydrocodone [From Vicodin] Allergy NERVOUS, Verified 11/01/22 07:46 JITTERY Penicillins Allergy Rash Verified 11/01/22 07:46 Family History Other CVA (cerebral vascular accident) Cancer Hypertension Surgical History History of 2 sections History of cardiac catheterization History of lumbar laminectomy Hx of dilation and curettage Hx of surgical procedure Social History Smoking Status: Former smoker alcohol intake: never substance use type: does not use what type of physical activity do you participate in: none EXAM Physical Exam Const Vital Signs: 11/01/22 07:48 11/01/22 07:48 11/01/22 07:52 Temperature 97.7 F L 97.4 F L Temperature Source Temporal Temporal Pulse Rate 80 79 Respiratory Rate 12 15 Respiratory Effort Normal Non-Labored Respiratory Pattern Normal Blood Pressure 109/74 Blood Pressure Mean 85 Pulse Ox 93 96 Oxygen Delivery Method Room Air Room Air MDM MDM MDM Narrative Medical decision making narrative: HISTORY OF PRESENT ILLNESS: 72-year-old female here with concern for weakness. The patient is altered and is not providing history. Per EMS patient was brought in secondary to diffuse weakness and frequent falls. Per the patient's she has been having progressive functional neurologic decline over last month. Notes she forgets things easily notes she has trouble getting around notes frequent falls. Notes this morning he came downstairs noted the patient was on the floor. States he had a hard time getting up and so he called EMS. States he cannot handle her athome. REVIEW OF SYSTEMS: Patient is altered and does not provide reliable history. PHYSICAL EXAM: Nursing triage notes reviewed, Vital signs reviewed Constitutional: please see mdm HENT: MMM, atraumatic, normocephalic Eyes: Pupils equal round and reactive to light, Extraocular muscles intact Neck: No stridor, no JVD, full neck ROM Lungs: Clear to auscultation, No wheezing or rales. No increased work of breathing, no conversational dyspnea, no accessory muscle use, no nasal flaring. No respiratory distress noted Heart: Regular rate and rhythm, No murmurs, No rubs and No gallops, 2+ distal pulses (radial, femoral, posterior tibial) in all extremities Abdomen: Soft, there is no obvious elicited tenderness,no obvious peritoneal signs, no palpable pulsatile abdominal masses, no auscultated abdominal bruit : No CVAT Extremities: No edema Neuro: Somnolent, oriented only to person not to place or time of my exam, no obvious cranial nerve deficits, moves all 4 extremities, sensation all 4 extremities Skin: No rash or lesions noted MEDICAL DECISION MAKING: Chief Complaint: Altered mental status, weakness External records reviewed: Last hospitalization in September 2022 for abnormal abdominal imaging Factors affecting care: Oropharyngeal dysphagia, arthritis, anxiety, depression,ileus Social determinants of health: Elderly History obtained from others: EMS, family Consults: Internal medicine ALL IMAGES (IF OBTAINED) HAVE BEEN PERSONALLY REVIEWED AND INTERPRETED BY MYSELF. EKG with normal sinus rhythm, normal axis, no intervals, no STEMI MDM Narrative: The patient was hemodynamically stable, afebrile and nontoxic-appearing. I considered the following differential diagnosis: Intracranial hemorrhage, CVA,ACS, electrolyte abnormalities, infectious or metabolic encephalopathy, toxic ingestion, polypharmacy, dehydration I obtained a broad lab and imaging work-up to further elucidate the etiology thepatient complaints. Give the patient 1 L normal saline. Patient CT scan of head and cervical spine were negative for acute traumatic injury. EKG troponin were negative for signs of myocardial ischemia. Labs evidence of significant metabolic abnormalities to suggest metabolic acidosis. Serum alcohol was negative. No evidence of dehydration on labs. Urinalysis negative. Drug seen positive for ecstasy. Given the patient's alteration mental status, failure to thrive, gait instability as well as the patient's 's report that he is unable to take care of her at home. She will need admission for ongoing evaluation, PT/OT evaluation and possible placement. Patient's is agreeable to placement stating he cannot take care of her at home. The patient and/or family, caregivers express understanding. The patient and/orfamily, caregivers agrees with the plan. Shared decision making: I will have a discussion with the patient and or visitors regarding risk/benefits of further testing or admission. They will be made aware of of the risk/benefits inherent in this decision they will be given the opportunity to voice understanding. Total critical care time today provided was at least 0 minutes. This excludes separately billable procedures. Critical care time (if documented) is secondary to the patient having high probability of clinically significant/life threatening deterioration in the patient's condition which required my urgent intervention. Lab Data Attestation: I reviewed the patient's lab results. Lab results narrative: CBC without leukocytosis, severe anemia, no thrombocytopenia. BMP without evidence of significant electrolyte abnormalities, no anion gap, no acute kidney injury. Lactate is wnl indicating no end-organ hypoperfusion and/or hypoxia. TSH not suggestive of hypothyroidism Troponin is negative, no evidence of myocardial ischemia LFTs show no evidence of hepatobiliary pathology. CK borderline elevated not consistent with acute rhabdomyolysis Serum alcohol negative Labs: Laboratory Results - last 24 hr 11/01/22 11/01/22 11/01/22 07:30 08:04 09:05 WBC 3.6 L RBC 3.87 L Hgb 12.2 Hct 38.5 MCV 99.5 H MCH 31.5 MCHC 31.7 L RDW Std Deviation 52.0 H RDW Coeff of Mehnaz 14.3 Plt Count 399 MPV 9.9 Immature Gran % (Auto) 0.300 Neut % (Auto) 44.7 L Lymph % (Auto) 38.1 Haakon % (Auto) 10.0 Eos % (Auto) 5.0 Baso % (Auto) 1.9 H Absolute Neuts (auto) 1.6 L Absolute Lymphs (auto) 1.37 Nucleated RBC % 0 Sodium 144 Potassium 3.7 Chloride 114 H Carbon Dioxide 25.0 Anion Gap 5 BUN 10 Creatinine 0.88 Estim Creat Clear Calc 45.70 Est GFR (MDRD) Af Amer 81 Est GFR (MDRD) Non-Af 67 BUN/Creatinine Ratio 11.4 Glucose 100 Lactic Acid 0.9 Calcium 9.0 Total Bilirubin 0.40 AST 19 ALT 30 Alkaline Phosphatase 97 Total Creatine Kinase 211 H Troponin I High Sens 4 Total Protein 6.9 Albumin 2.6 L Globulin 4.3 H Albumin/Globulin Ratio 0.6 L Lipase 21 TSH 0.09 L Ur Drug Screen Comment Ethyl Alcohol < 3.0 Radiography Chest X-Ray - ED: Read by ED Physician Diagnostic Testing: Clinical Impression(s) from Imaging Studies Brain CT 11/01/22 08:00 IMPRESSION: Chronic involutional changes of the brain. Stable examination. Electronically Signed: Rafael Sherwood MD at 8:44 EDT , Cervical Spine CT 11/01/22 08:02 IMPRESSION: Multilevel degenerative changes, as described above. 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 Electronically Signed: Rafael Sherwood MD at 8:46 EDT , Chest X-Ray 11/01/22 08:30 IMPRESSION: Stable bibasilar infiltrates. Follow-up recommended. Electronically Signed: Rafael Sherwood MD at 8:47 EDT , Chest x-ray personally read reviewed by myself shows evidence of possible right lung infiltrate. Compared to prior x-ray looks similar. Discharge Plan Triage Chief Complaint: Weakness ED Provider: Armando Miranda Dx/Rx/DC Orders Clinical Impression: Acute alteration in mental status, Influenza B Primary Care Provider: Harish Luis Chi What to do if you have Problems For any increased pain, shortness of breath, bleeding, nausea or vomiting, chestpain, or any unexpected problems, contact your Primary Care Provider. Call [facility] ([phone]) or report to the closest Emergency Room. Call 911 if necessary. 11/01/22 1103 <Electronically signed by Armando Miranda DO> Cosigner Signature (if applicable): CC: Dr. Harish Luis MD ~ Signed [facility] Work Phone: 1(206) 502-424007-29-2023 Discharge summary Author Zia Posey [facility] October 14, 2022 8:34am Note Date/Time October 14, 2022 8:25 am [facility] Medical Records Department [address] [place] [address] Instructions for Home/Discharge Instructions 10/14/22823 MR#: [id number] Acct: [id number] Name: CAROL ZARAGOZA Rep #:[id number] : 1950 72 From: Zia Rivero PCP: Dr. Harish Luis MD Status:ADM I N Discharge Instructions Diet Discharge Diet: Soft diet (Soft diet for 3 days and then regular diet.) Activity Discharge Activity: Return to Normal Activity and May Not Drive Weight Bearing Status: Weight bearing as tolerated Dressing / Incision Call your doctor if you observe: Fever of 101 or Higher, Coldness, Increased Pain, Numbness or Tingling, Change in Color, Inability to urinate, Inability to have a bowel movement, Using more than 1 pad per hour, Shortness of breath, Dizziness, Fainting spells, Swelling in the ankles, Chest pain, Prolonged hiccupping, Increased palpitations (irregular heartbeat) and Calf discomfort Follow Up Care When: IN 2 WEEKS Test Results: Test results from this visit will be discussed in further detail at your follow- up appointment, if applicable. Discharge Plan Admission Admit Date/Time: 10/13/22 14:29 Attending Provider: Zia Posey Primary Care Provider: Harish Luis Chi Consulting Providers: Nallely Mccann Discharge Orders/Prescriptions Prescriptions: New sennosides-docusate sodium [Stool Softener-Stimulant Laxat] 8.6-50 mg Tablet 2 tab PO BID 30 Days Qty: 0 0RF Rx Instructions: Take as scheduled for 3 days and then as needed for constipation Available qsjy-cdn-tsmeivg. bisacodyl 10 mg Suppository 10 mg SC DAILY PRN (Reason: Constipation) 30 Days Qty: 0 0RF Rx Instructions: Bynj-rcq-mahkqei. polyethylene glycol 3350 [Miralax] 17 gram/dose powder 17 g PO DAILY Qty: 238 0RF Rx Instructions: available over the counter ciprofloxacin HCl 500 mg tablet 500 mg PO BID 5 Days Qty: 10 0RF metronidazole 500 mg tablet 500 mg PO Q8H 5 Days Qty: 15 0RF Continued clonazepam 1 MG tablet 1 mg PO TID buspirone 7.5 MG tablet 7.5 mg PO BID gabapentin 400 mg capsule 400 mg PO Q6H acetaminophen 325 mg Tablet 650 mg PO Q6H PRN PRN (Reason: Pain 1-10 Or Fever >100.7) Qty: 0 0RF Changed naproxen 500 mg tablet 500 mg PO Q12H PRN (Reason: arthritis pain) 30 Days Qty: 0 0RF Patient Comments: TAKE 1 TABLET BY MOUTH EVERY 12 HOURS Referrals / Follow Up: Ghazal Ledesma MD [Med Staff - Active Staff] - Within 2 Weeks (for acute on chronic retention of urine) Harish Luis Chi, MD [Primary Care Provider] - Nallely Mccann MD [Med Staff - Active Staff] - Within 2 Weeks (for severe constipation ) Disposition Disposition (needs filled in before D/C Order can be placed): Home, Self Care 10/14/22 0834<Electronically signed by Zia Posey MD>Zia Posey MD CC: Dr. Harish Luis MD; Dr. Nallely Mccann MD ~ Signed [facility] Work Phone: [phone]) 250-772807-29-2023 Progress note Author Nallely Mccann [facility] October 14, 2022 8:22am Note Date/Time October 14, 2022 8:22 am [facility] Medical Records Department [address] [place] [address] Progress Note - Surgery 10/14/22 0820 MR#: [id number] Acct: [id number] Name: CAROL ZARAGOZA Rep #:[id number] : 1950 72 From: Nallely Mccann MD PCP: Dr. Harish Luis MD Status:ADM I N Location: [place] [address] Subjective Subjective Per patient and nursing she had a large bowel movement with the enemas and laxatives. Patient denies abdominal pain or nausea or vomiting. [facility]. Objective Data Objective Data Vital Signs: Vital Signs Temp Pulse Resp BP Pulse Ox O2 Del Method 98.6 F 79 16 105/62 95 Room Air 10/14/22 04:06 10/14/22 04:06 10/14/22 04:06 10/14/22 04:06 10/14/22 08:16 10/14/22 08:16 Oxygen Delivery Method Room Air Weight: 109 lb 9.116 oz Body Mass Index (BMI) 19.4 Intake & Output: Intake and Output for Last 24 Hours 10/12/22 10/13/22 10/14/22 23:59 23:59 23:59 Intake Total 2650 / 2650 1000 / 1000 Output Total 1400 / 2200 1200 / 1200 Balance 1250 / 450 -200 / -200 Lab / Micro Data 10/14/22 07:13 10/13/22 12:45 Labs: Laboratory Results - last 24 hr 10/13/22 10:30: Lactic Acid 2.5 H*, Free T4 1.26, Free T3 pg/dL 2.2 10/13/22 11:00: Ammonia < 10.0 L 10/13/22 12:00: Urine Color Yellow, Urine Clarity Sl. Cloudy, Urine pH 6.0, Ur Specific [place] 1.015, Urine Protein Negative, Urine Glucose (UA) 50 H, Urine Ketones Negative, Urine Occult Blood Negative, Urine Nitrite Negative, Urine Bilirubin Negative, Urine Urobilinogen Normal, Ur Leukocyte Esterase Negative, Urine RBC 0 SEEN, Urine WBC 0 SEEN, Ur Squamous Epith Cells 0-5 SEEN, Urine Bacteria 0 SEEN, Urine Mucus 0 SEEN 10/13/22 12:45: WBC 9.4, RBC 3.35 L, Hgb 10.3 L, Hct 32.5 L, MCV 97.0, MCH 30.7,MCHC 31.7 L, RDW Std Deviation 48.4 H, RDW Coeff of Mehnaz 13.5, Plt Count 288, MPV9.8, Immature Gran % (Auto) 0.300, Neut % (Auto) 78.3 H, Lymph % (Auto) 12.0 L, Haakon % (Auto) 9.2, Eos % (Auto) 0.0, Baso % (Auto) 0.2, Absolute Neuts (auto) 7.4, Absolute Lymphs (auto) 1.13, Nucleated RBC % 0, Sodium 143, Potassium 3.5, Chloride 112 H, Carbon Dioxide 25.0, Anion Gap 6, BUN 9, Creatinine 0.87, Estim Creat Clear Calc 43.95, Est GFR (MDRD) Af Amer 82, Est GFR (MDRD) Non-Af 68, BUN/Creatinine Ratio 10.3, Glucose 91, Calcium 8.4 L, Total Bilirubin 0.30, AST 18, ALT 14, Alkaline Phosphatase 86, Total Protein 5.7 L, Albumin 2.4 L, Globulin 3.3, Albumin/Globulin Ratio 0.7 L 10/13/22 14:25: Phosphorus 3.1, Magnesium 2.2 10/13/22 18:05: Lactic Acid 0.8 10/14/22 07:13: WBC 5.7, RBC 3.15 L, Hgb 10.1 L, Hct 30.6 L, MCV 97.1, MCH 32.1 H, MCHC 33.0, RDW Std Deviation 49.1 H, RDW Coeff of Mehnaz 13.7, Plt Count 247, MPV 10.0, Immature Gran % (Auto) 0.200, Neut % (Auto) 62.2, Lymph % (Auto) 27.8,Haakon % (Auto) 8.4, Eos % (Auto) 0.9, Baso % (Auto) 0.5, Absolute Neuts (auto) 3.6, Absolute Lymphs (auto) 1.59, Nucleated RBC % 0 Radiography Diagnostic Testing: Radiology Impression Abdomen/Pelvis CT 10/13/22 11:08 IMPRESSION: Large amount of fecal material is seen throughout the colon. Pneumatosis seen in the wall of the right hemicolon most likely secondary to the large amount of fecal material. Fatty infiltration of the liver. Distended urinary bladder. Scarring in the lung bases. Electronically Signed: Rafael Sherwood MD at 11:53 EDT , Physical Exam Const alert, oriented x3 and no apparent distress Resp normal respiratory effort Cardio regular rate GI soft to palpation and non-tender; Negative for non-distended Palpation: Negative for guarding Bladder / Kidney Exam: catheter in place Assessment & Plan Assessment/Plan (1) Abnormal CT of the abdomen: PLAN: Plan Okay for patient to have diet. Will DC with Cipro and Flagyl times total of [address] due to urinary retention-management per hospitalist. Nallely Mccann M.D. Pager: [phone] [facility] [address] [place] [address], [facility], [address] [place] [address] Office: [phone] Charges/Coding Visit Charges Inpatient E&M: 64502 Subs Hosp L2 10/14/22 0822 <Electronically signed by Nallely Mccann MD> Cosigner Signature (if applicable): CC: ~ Signed [facility] Work Phone: 1(201) 400-220307-29-2023 Consult note Author Nallely Mccann [facility] October 14, 2022 8:20am Note Date/Time October 13, 2022 1:53 pm [facility] Medical Records Department [address] [place] [address] Consultation - Surgical 10/13/22 1353 MR#: [id number] Acct: [id number] Name: CAROL ZARAGOZA Rep #:[id number] : 1950 72 From: Nallely Mccann MD PCP: Dr. Harish Luis MD Status:ADM I N Location: [facility] DD616-1 Assessment & Plan Assessment/Plan (1) Abnormal CT of the abdomen: PLAN: Plan Patient was given Cipro and Flagyl in the ER due to the finding of pneumatosis of the right colon. Patient does not really have any abdominal pain on exam forme?we will plan to treat conservatively no current plans for any surgical intervention.. We will continue the IV antibiotics currently. Patient does have a stool in her colon plan for enemas and laxatives. Bass in place due to urinary retention. Nallely Mccann M.D. Pager: [phone] [facility] [address] [place] [address], [address] [place] [address] Office: [phone] HPI Consult Data Date of Consult: 10/14/22 HPI Narrative Reason for Consultation: Pneumatosis of right colon on CT HPI Narrative: CAROL ZARAGOZA, is a 72 F who presents to the ER due to abnormal KUB after seeingPCP on Sunday. Patient states she went in for a normal visit stated that shedid have some occasional pain that went across her abdomen when she bent over otherwise denies any nausea or vomiting tolerating diet patient states she has had less of an appetite ever since her back surgery 15 years ago. Patient states she has bowel moods daily denies any blood. Patient never had a colonoscopy as she has declined over time her PCP asked per patient. Patient has CT back in 2021 which showed pneumatosis of the right colon. Patient did notrequire any surgery at that time. Patient CT abdomen pelvis which showed right colon pneumatosis of this as well as enlarged bladder. Patient's had a Bass placed for 900+ cc?UA appeared clean no concern for infection. Patient denied urge to urinate. Currently patient denies any abdominal pain. Patient normal white blood cell count in the ER with a slight shift at 78% neutrophils, patient's creatinine was normal 0.87, lactic acid from 1030 blood draw but not resulted until 2:30 PM-- was 2.5 patient is currently getting a IV fluid bolus. [facility] Medical History Allergic rhinitis Ambulates with cane Anxiety Arthritis Asthma Back pain Carpal tunnel syndrome on both sides Chronic cough Chronic lower back pain Closed head injury COVID-19 Debility Depression Depression Dysphagia Edema Former smoker Gastric reflux Gastroparesis Generalized weakness GERD High cholesterol History of stress test HLD (hyperlipidemia) Hypertension Hypoxia Insomnia Irritable bowel syndrome without diarrhea Ischemic bowel disease Low back pain Migraine Migraine headache Movement disorder Pain from implanted hardware Palpitations Palpitations Post-menopausal Scoliosis Scoliosis of lumbar spine Segmental and somatic dysfunction of lumbar region Segmental and somatic dysfunction of pelvic region Segmental dysfunction of thoracic region Shortness of breath on exertion SOB (shortness of breath) Stenosis, cervical spine Uses wheelchair Vitamin D deficiency Walker as ambulation aid Wears dentures Wears glasses Wears hearing aid Home Medications buspirone 7.5 mg tablet 7.5 mg PO BID Check with primary doctor 02/17/20 [History Last Taken 04/26/22] clonazepam 1 mg tablet 1 mg PO TID anxiety 02/17/20 [History Last Taken 04/26/22] gabapentin 400 mg capsule 400 mg PO Q6H Check with primary doctor 04/20/22 [History Last Taken 04/26/22] acetaminophen 325 mg tablet 650 mg (2 x 325 mg) PO Q6H PRN PRN Pain 1-10 Or Fever >100.7 #0 tabs 08/02/22 [Rx Last Taken Unknown] naproxen 500 mg tablet 500 mg PO Q12H 10/13/22 [History Last Taken Unknown] Allergy/AdvReac Type Severity Reaction Status Date / Time hydrocodone [From Vicodin] Allergy NERVOUS, Verified 10/13/22 10:07 JITTERY Penicillins Allergy Rash Verified 10/13/22 10:07 Family History Other CVA (cerebral vascular accident) Cancer Hypertension Surgical History History of 2 sections History of cardiac catheterization History of lumbar laminectomy Hx of dilation and curettage Hx of surgical procedure Social History Smoking Status: Former smoker alcohol intake: never substance use type: does not use what type of physical activity do you participate in: none ROS Constitutional Constitutional: Denies fever(s) Eyes Eyes: Denies loss of central vision ENT HEENT: Denies dysphagia Cardiovascular Cardiovascular: Denies chest pain Respiratory/Chest Respiratory/Chest: Denies cough Gastrointestinal Gastrointestinal: Reports abdominal pain; Denies constipation, diarrhea, nausea,rectal bleeding or vomiting Genitourinary Genitourinary: Denies dysuria or urinary urgency Musculoskeletal Musculoskeletal: Reports back pain Integumentary Integumentary: Denies jaundice Neurologic Neurologic: Denies dizziness Psychiatric Psychiatric: Reports anxiety Endocrine Endocrinology: Denies palpitations Hematologic/Lymphatic Hematologic/Lymphatic: Denies easy bleeding Physical Exam Const alert, oriented x3 and no apparent distress HEENT normocephalic and head/scalp atraumatic Eyes conjunctivae normal Neck supple Resp normal respiratory effort Cardio regular rate GI soft to palpation and non-tender; Negative for non-distended Palpation: Negative for guarding Bladder / Kidney Exam: catheter in place Extremity no clubbing, cyanosis or edema Skin no rashes or lesions noted and no jaundice Neuro CN's II-XII intact bilaterally Psych mental status grossly normal Mood & Affect: flat affect Lab / Micro Data 10/14/22 07:13 10/13/22 12:45 Labs: Laboratory Results - last 24 hr 10/13/22 10:30: Free T4 1.26, Free T3 pg/dL 2.2 10/13/22 11:00: Ammonia < 10.0 L 10/13/22 12:00: Urine Color Yellow, Urine Clarity Sl. Cloudy, Urine pH 6.0, Ur Specific [place] 1.015, Urine Protein Negative, Urine Glucose (UA) 50 H, Urine Ketones Negative, Urine Occult Blood Negative, Urine Nitrite Negative, Urine Bilirubin Negative, Urine Urobilinogen Normal, Ur Leukocyte Esterase Negative, Urine RBC 0 SEEN, Urine WBC 0 SEEN, Ur Squamous Epith Cells 0-5 SEEN, Urine Bacteria 0 SEEN, Urine Mucus 0 SEEN 10/13/22 12:45: WBC 9.4, RBC 3.35 L, Hgb 10.3 L, Hct 32.5 L, MCV 97.0, MCH 30.7,MCHC 31.7 L, RDW Std Deviation 48.4 H, RDW Coeff of Mehnaz 13.5, Plt Count 288, MPV9.8, Immature Gran % (Auto) 0.300, Neut % (Auto) 78.3 H, Lymph % (Auto) 12.0 L, Haakon % (Auto) 9.2, Eos % (Auto) 0.0, Baso % (Auto) 0.2, Absolute Neuts (auto) 7.4, Absolute Lymphs (auto) 1.13, Nucleated RBC % 0, Sodium 143, Potassium 3.5, Chloride 112 H, Carbon Dioxide 25.0, Anion Gap 6, BUN 9, Creatinine 0.87, Estim Creat Clear Calc 43.95, Est GFR (MDRD) Af Amer 82, Est GFR (MDRD) Non-Af 68, BUN/Creatinine Ratio 10.3, Glucose 91, Calcium 8.4 L, Total Bilirubin 0.30, AST 18, ALT 14, Alkaline Phosphatase 86, Total Protein 5.7 L, Albumin 2.4 L, Globulin 3.3, Albumin/Globulin Ratio 0.7 L Radiology Impression Abdomen/Pelvis CT 10/13/22 11:08 IMPRESSION: Large amount of fecal material is seen throughout the colon. Pneumatosis seen in the wall of the right hemicolon most likely secondary to the large amount of fecal material. Fatty infiltration of the liver. Distended urinary bladder. Scarring in the lung bases. Electronically Signed: Rafale Sherwood MD at 11:53 EDT , Charges/Coding Visit Charges Inpatient E&M: 11443 Init Hosp L3 10/14/22 0820 <Electronically signed by Nallely Mccann MD> Cosigner Signature (if applicable): CC: Dr. Harish Luis MD; Dr. Nallely Mccann MD~ Signed [facility] Work Phone: 1(611) 517-842507-29-2023 Discharge summary Author Sheyla Slade [facility] October 13, 2022 10:21pm Note Date/Time October 13, 2022 11:2 1am [facility] Medical Records Department [address] [place] [address] Emergency Department Summary 10/13/22 MR#: [id number] Acct: [id number] Name: CAROL ZAARGOZA Rep #:[id number] : 1950 72 From: Sheyla Santamaria PCP: Dr. Harish Luis MD Status:ADM I N Location: [place] [id number] HPI HPI - GI History of Present Illness Chief Complaint: Abd Pain Informant: patient and spouse/S.O. Narrative Narrative: Patient is a 72-year-old female with history of anxiety (on clonazepam and buspirone) presenting for mental status change and concern for ileus with outpatient x-ray. Patient has been complaining of some intermittent stomach cramps and discomfort for the past week. She did have some having worsening constipation. She states 2 nights ago she had a small soft bowel movement. Shedoes feel bloated has not been passing gas. Her also notes for the past2 to 3 days her words of just seemed kind of garbled and she seems off. No report of any fever. Patient notes that she has had a hard time starting urination and when she does pee she feels like she pees forever. Patient was recently hospitalized for pneumonia and does continue to have some chest congestion. She followed up with her PCP, Dr. Luis, yesterday because she was still having chest congestion. She had outpatient lab work including KUB and a chest x-ray ordered. Lab work largely normal except her TSH was low. Her chestx-ray showed improving pneumonia and she had KUB that did show an ileus. Patient was sent to the ER for further evaluation. Chart review shows that patient was admitted July 31 through for respiratory failure associated with pneumonia/influenza B. At that time she also had an EGDfor dysphagia. [facility] Medical History Allergic rhinitis Ambulates with cane Anxiety Arthritis Asthma Back pain Carpal tunnel syndrome on both sides Chronic cough Chronic lower back pain Closed head injury COVID-19 Debility Depression Depression Dysphagia Edema Former smoker Gastric reflux Gastroparesis Generalized weakness GERD High cholesterol History of stress test HLD (hyperlipidemia) Hypertension Hypoxia Insomnia Irritable bowel syndrome without diarrhea Ischemic bowel disease Low back pain Migraine Migraine headache Movement disorder Pain from implanted hardware Palpitations Palpitations Post-menopausal Scoliosis Scoliosis of lumbar spine Segmental and somatic dysfunction of lumbar region Segmental and somatic dysfunction of pelvic region Segmental dysfunction of thoracic region Shortness of breath on exertion SOB (shortness of breath) Stenosis, cervical spine Uses wheelchair Vitamin D deficiency Walker as ambulation aid Wears dentures Wears glasses Wears hearing aid Home Medications buspirone 7.5 mg tablet 7.5 mg PO BID Check with primary doctor 02/17/20 [History Last Taken 04/26/22] clonazepam 1 mg tablet 1 mg PO TID anxiety 02/17/20 [History Last Taken 04/26/22] gabapentin 400 mg capsule 400 mg PO Q6H Check with primary doctor 04/20/22 [History Last Taken 04/26/22] acetaminophen 325 mg tablet 650 mg (2 x 325 mg) PO Q6H PRN PRN Pain 1-10 Or Fever >100.7 #0 tabs 08/02/22 [Rx Last Taken Unknown] naproxen 500 mg tablet 500 mg PO Q12H 10/13/22 [History Last Taken Unknown] Allergy/AdvReac Type Severity Reaction Status Date / Time hydrocodone [From Vicodin] Allergy NERVOUS, Verified 10/13/22 10:07 JITTERY Penicillins Allergy Rash Verified 10/13/22 10:07 Family History Other CVA (cerebral vascular accident) Cancer Hypertension Surgical History History of 2 sections History of cardiac catheterization History of lumbar laminectomy Hx of dilation and curettage Hx of surgical procedure Social History Smoking Status: Former smoker alcohol intake: never substance use type: does not use what type of physical activity do you participate in: none ROS ROS ED Constitutional Constitutional ED: Denies chills or fever(s) ENT ENT ED: Denies rhinorrhea or sore throat Cardiovascular Cardiovascular: Denies chest pain or palpitations Respiratory/Chest Respiratory/Chest: Reports cough and other Details: chest congestion ; Denies dyspnea Gastrointestinal Gastrointestinal: Reports abdominal pain and constipation; Denies nausea or vomiting Genitourinary Genitourinary ED: Reports other Details: Urinary hesitancy ; Denies dysuria or urinary frequency Musculoskeletal Musculoskeletal: Denies arthralgias or myalgias Integumentary Denies rash Neurologic Neurologic: Denies headache(s) or weakness Psychiatric Psychiatric: Reports anxiety EXAM Physical Exam Const Vital Signs: 10/13/22 10:04 10/13/22 10:25 10/13/22 10:33 Temperature 97.3 F L 98.1 F Temperature Source Temporal Temporal Pulse Rate 98 78 Respiratory Rate 12 14 Respiratory Pattern Normal Blood Pressure 126/83 H 132/72 H Blood Pressure Mean 97 92 Pulse Ox 92 Oxygen Delivery Method Room Air Room Air 10/13/22 12:07 10/13/22 13:00 10/13/22 13:51 Temperature 98.2 F 97.3 F L 97.3 F L Temperature Source Temporal Temporal Temporal Pulse Rate 65 75 74 Respiratory Rate 16 16 16 Respiratory Pattern Blood Pressure 118/69 124/66 H 125/69 H Blood Pressure Mean 85 85 87 Pulse Ox 96 99 95 Oxygen Delivery Method Room Air Room Air Room Air Positive well nourished and well developed General Appearance ED: well developed and NAD HEENT Reports moist mucous membranes normocephalic and atraumatic Eyes PERRL Neck supple and no JVD Resp normal respiratory effort and clear to auscultation bilaterally Cardio regular rate, regular rhythm and no murmurs GI non-distended Auscultation: hypoactive bowel sounds Palpation: soft and tender periumbilical; Negative for guarding or rigid Back/Spine no CVA tenderness Extremity full ROM General Extremety ED: Negative for edema or tenderness General Extremity: Negative for edema Neuro Neuro Narrative: No focal deficits appreciated. While patient answers questions appropriately she also sometimes gives a vague or not quite correct answer initially and then will correct her self. No slurred or garbled speech appreciated. Sensorium / Orientation: oriented to person, oriented to place and oriented to time Psych thought process normal Mood & Affect: anxious Skin no wounds Rashes: no rashes MDM MDM MDM Narrative Medical decision making narrative: Patient is evaluated for vague abdominal discomfort as well as ileus on outpatient imaging. She has been having this vague abdominal scum for about a week. She appears nontoxic. She had lab work yesterday. Her TSH was low so I did check a free T4 and T3 which are normal. Ammonia checked as there is been no report of mental status changes well. Patient does not have any focal neurologic deficits. CT obtained as patient is have a history of C-sections for concern of possible small bowel obstruction versus ileus. CT of the abdomen pelvis does show large amount of fecal material throughout the colon with pneumatosis in the wall of the right hemicolon which is most likely secondary to large amount of fecal material. In addition she has a very distended urinary bladder. Case is discussed with surgery on-call, Dr. Mccann, we will get a repeat lab work today as initially was not repeated she just had a CBC and CMP from yesterday. In addition we will check a lactate. We will start her on Cipro andFlagyl she has a penicillin allergy. Bass catheter will be placed to decompress the bladder fully. After Bass is placed on 150 cc of urine come out. This is consistent with urinary retention. Exact cause for this is not clear. Lactate is elevated at 2.5 however not sure how much of this is dehydration versus acute ischemia. Regardless patient is admitted to medicine service with consult to surgery. Case is discussed admitting physician, Dr. Rooney. Lab Data Attestation: I reviewed the patient's lab results. Labs: Laboratory Results - last 24 hr 10/13/22 10/13/22 10/13/22 10:30 11:00 12:00 WBC RBC Hgb Hct MCV MCH MCHC RDW Std Deviation RDW Coeff of Mehnaz Plt Count MPV Immature Gran % (Auto) Neut % (Auto) Lymph % (Auto) Haakon % (Auto) Eos % (Auto) Baso % (Auto) Absolute Neuts (auto) Absolute Lymphs (auto) Nucleated RBC % Sodium Potassium Chloride Carbon Dioxide Anion Gap BUN Creatinine Estim Creat Clear Calc Est GFR (MDRD) Af Amer Est GFR (MDRD) Non-Af BUN/Creatinine Ratio Glucose Lactic Acid 2.5 H* Calcium Phosphorus Magnesium Total Bilirubin AST ALT Alkaline Phosphatase Ammonia < 10.0 L Total Protein Albumin Globulin Albumin/Globulin Ratio Free T4 1.26 Free T3 pg/dL 2.2 Urine Color Yellow Urine Clarity Sl. Cloudy Urine pH 6.0 Ur Specific [place] 1.015 Urine Protein Negative Urine Glucose (UA) 50 H Urine Ketones Negative Urine Occult Blood Negative Urine Nitrite Negative Urine Bilirubin Negative Urine Urobilinogen Normal Ur Leukocyte Esterase Negative Urine RBC 0 SEEN Urine WBC 0 SEEN Ur Squamous Epith Cells 0-5 SEEN Urine Bacteria 0 SEEN Urine Mucus 0 SEEN 10/13/22 10/13/22 12:45 14:25 WBC 9.4 RBC 3.35 L Hgb 10.3 L Hct 32.5 L MCV 97.0 MCH 30.7 MCHC 31.7 L RDW Std Deviation 48.4 H RDW Coeff of Mehnaz 13.5 Plt Count 288 MPV 9.8 Immature Gran % (Auto) 0.300 Neut % (Auto) 78.3 H Lymph % (Auto) 12.0 L Haakon % (Auto) 9.2 Eos % (Auto) 0.0 Baso % (Auto) 0.2 Absolute Neuts (auto) 7.4 Absolute Lymphs (auto) 1.13 Nucleated RBC % 0 Sodium 143 Potassium 3.5 Chloride 112 H Carbon Dioxide 25.0 Anion Gap 6 BUN 9 Creatinine 0.87 Estim Creat Clear Calc 43.95 Est GFR (MDRD) Af Amer 82 Est GFR (MDRD) Non-Af 68 BUN/Creatinine Ratio 10.3 Glucose 91 Lactic Acid Calcium 8.4 L Phosphorus 3.1 Magnesium 2.2 Total Bilirubin 0.30 AST 18 ALT 14 Alkaline Phosphatase 86 Ammonia Total Protein 5.7 L Albumin 2.4 L Globulin 3.3 Albumin/Globulin Ratio 0.7 L Free T4 Free T3 pg/dL Urine Color Urine Clarity Urine pH Ur Specific [place] Urine Protein Urine Glucose (UA) Urine Ketones Urine Occult Blood Urine Nitrite Urine Bilirubin Urine Urobilinogen Ur Leukocyte Esterase Urine RBC Urine WBC Ur Squamous Epith Cells Urine Bacteria Urine Mucus Radiography Diagnostic Testing: Clinical Impression(s) from Imaging Studies Abdomen/Pelvis CT 10/13/22 11:08 IMPRESSION: Large amount of fecal material is seen throughout the colon. Pneumatosis seen in the wall of the right hemicolon most likely secondary to the large amount of fecal material. Fatty infiltration of the liver. Distended urinary bladder. Scarring in the lung bases. Electronically Signed: Rafael Sherwood MD at 11:53 EDT , Discharge Plan Dx/Rx/DC Orders Clinical Impression: Paralytic ileus of small intestine and colon, Urinary retention, Abnormal CT ofthe abdomen Disposition Disposition: Acute Care Hospital [facility] Discharge Date/Time: 10/13/22 15:24 What to do if you have Problems For any increased pain, shortness of breath, bleeding, nausea or vomiting, chestpain, or any unexpected problems, contact your Primary Care Provider. Call [facility] ([phone]) or report to the closest Emergency Room. Call 911 if necessary. 10/13/222220 <Electronically signed by Sheyla Slade DO> Cosigner Signature (if applicable): CC: Dr. Harish Luis MD ~ Signed [facility] Work Phone: [phone] 444-368807-28-2023 History and physical note Author Zia Kalpesh [facility] October 13, 2022 3:13pm Note Date/Time October 13, 2022 2:42 pm [facility] Medical Records Department [address] [place] [address] H&P Exam - Hospitalist 10/13/22 1440 MR#: [id number] Acct: [id number] Name: CAROL ZARAGOZA Rep #:[id number] : 1950 72 From: Zia Rivero PCP: Dr. Harish Luis MD Status:ADM I N Location: [place] [address] HPI - General General Date of Admission: 10/13/22 Date of Service: 10/13/22 Chief Complaint: Constipation for long time but acutely for last 2 days HPI Narrative CAROL ZARAGOZA, is a 72 F was sent to ED by PCP Dr. Luis who did outpatient KUB which showed colonic ileus. Patient having irregular bowel movement mainly constipation for last 1 week but did not move bowel for 2 days. She is bloated and has not passed gas for last 2 days. To me, she denies abdominal pain or discomfort but from ER physician note, she had stomach cramps and abdominal discomfort for past 1 week. Prior to that she was admitted in July 2022 for pneumonia/influenza B and she had follow-up chest x-ray by Dr. Luis today which shows improvement in pneumonia. She also had EGD during that hospital course for dysphagia Patient also has difficulty in his starting the urine and she states he pees a lot. She also has sensation of incomplete emptying of bladder and has to go again for PE. No fever. Patient hemodynamically stable in ED with no hypoxia or tachypnea. Labs and CT scan individually reviewed and discussed in assessment plan. Patient is further admitted. [facility] Medical History Allergic rhinitis Ambulates with cane Anxiety Arthritis Asthma Back pain Carpal tunnel syndrome on both sides Chronic cough Chronic lower back pain Closed head injury COVID-19 Debility Depression Depression Dysphagia Edema Former smoker Gastric reflux Gastroparesis Generalized weakness GERD High cholesterol History of stress test HLD (hyperlipidemia) Hypertension Hypoxia Insomnia Irritable bowel syndrome without diarrhea Ischemic bowel disease Low back pain Migraine Migraine headache Movement disorder Pain from implanted hardware Palpitations Palpitations Post-menopausal Scoliosis Scoliosis of lumbar spine Segmental and somatic dysfunction of lumbar region Segmental and somatic dysfunction of pelvic region Segmental dysfunction of thoracic region Shortness of breath on exertion SOB (shortness of breath) Stenosis, cervical spine Uses wheelchair Vitamin D deficiency Walker as ambulation aid Wears dentures Wears glasses Wears hearing aid Home Medications buspirone 7.5 mg tablet 7.5 mg PO BID Check with primary doctor 02/17/20 [History Last Taken 04/26/22] clonazepam 1 mg tablet 1 mg PO TID anxiety 02/17/20 [History Last Taken 04/26/22] gabapentin 400 mg capsule 400 mg PO Q6H Check with primary doctor 04/20/22 [History Last Taken 04/26/22] acetaminophen 325 mg tablet 650 mg (2 x 325 mg) PO Q6H PRN PRN Pain 1-10 Or Fever >100.7 #0 tabs 08/02/22 [Rx Last Taken Unknown] naproxen 500 mg tablet 500 mg PO Q12H 10/13/22 [History Last Taken Unknown] Allergy/AdvReac Type Severity Reaction Status Date / Time hydrocodone [From Vicodin] Allergy NERVOUS, Verified 10/13/22 10:07 JITTERY Penicillins Allergy Rash Verified 10/13/22 10:07 Family History Other CVA (cerebral vascular accident) Cancer Hypertension Surgical History History of 2 sections History of cardiac catheterization History of lumbar laminectomy Hx of dilation and curettage Hx of surgical procedure Social History Smoking Status: Former smoker alcohol intake: never substance use type: does not use what type of physical activity do you participate in: none ROS ROS Narrative 14 system ROS incomplete and difficult to obtain as patient has anxiety on: Is on buspirone and her history is vague. Constitutional: Reports fatigue and weakness. No fever. HEENT: Reports systems reviewed and no addt'l complaints, except as documented Respiratory/Chest: No acute shortness of breath or respiratory distress or wheezing. CVS: No chest pain pressure or tightness Gastrointestinal: Denies coffee ground emesis, hematemesis or vomiting. Rest asmentioned in HPI Genitourinary: No dysuria/burning micturition. Rest as described in HPI Musculoskeletal: Denies acute joint pain or limited range of motion. No acute injury Neurologic: Denies seizure-like symptoms. Psychiatric: Anxiety and depression on antipsychotic medication. skin: No ulcer. No rash Endocrinology: Reports systems reviewed and no addt'l complaints, except as documented Hematologic/Lymphatic: Reports systems reviewed and no addt'l complaints, exceptas documented Rest 14 ROS are negative except as mentioned in HPI Vital Signs Vital Signs Vital Signs: 10/13/22 10:04 10/13/22 10:25 10/13/22 10:33 Temperature 97.3 F L 98.1 F Temperature Source Temporal Temporal Pulse Rate 98 78 Respiratory Rate 12 14 Respiratory Pattern Normal Blood Pressure 126/83 H 132/72 H Blood Pressure Mean 97 92 Pulse Ox 92 Oxygen Delivery Method Room Air Room Air 10/13/22 12:07 10/13/22 13:00 10/13/22 13:51 Temperature 98.2 F 97.3 F L 97.3 F L Temperature Source Temporal Temporal Temporal Pulse Rate 65 75 74 Respiratory Rate 16 16 16 Respiratory Pattern Blood Pressure 118/69 124/66 H 125/69 H Blood Pressure Mean 85 85 87 Pulse Ox 96 99 95 Oxygen Delivery Method Room Air Room Air Room Air Weight Weight: 105 lb Body Mass Index (BMI) 18.6 Physical Exam Narrative General: Alert, Oriented x3, Cooperative HEENT: Atraumatic, PERRLA, EOMI, Normocephalic Oral: Oral mucosa dry. No Gingival or Mucosal Lesions/ Ulcerations Neck: Supple, No JVD, Negative Carotid Bruits Lungs: Air entry diminished in bilateral lung bases. No crepitation/rhonchi Cardiovascular: Regular rate, Regular Rhythm, Normal S1, Normal S2, systolic murmur right second ICS Abdomen: Bowel Sounds very sluggish. Soft, nontender and nondistended. : No renal angle tenderness. No suprapubic tenderness. Extremities: No edema, Capillary Refill Less than 3 Seconds Skin: No rashes, No breakdown Musculoskeletal: No Tenderness to Palpation of Joints or Extremities, muscle strength 4+/5 at knee and hip joints. Neurological: Cranial nerves II-XII grossly intact, DTR 2+/4 and Symmetrical, Neuro grossly intact Psych/Mental Status: Flat affect. Sometimes does not remember her history/tangential in history taking Results Lab / Micro Data 10/13/22 12:45 10/13/22 12:45 Labs: Laboratory Results - last 24 hr 10/13/22 10:30: Lactic Acid 2.5 H*, Free T4 1.26, Free T3 pg/dL 2.2 10/13/22 11:00: Ammonia < 10.0 L 10/13/22 12:00: Urine Color Yellow, Urine Clarity Sl. Cloudy, Urine pH 6.0, Ur Specific [place] 1.015, Urine Protein Negative, Urine Glucose (UA) 50 H, Urine Ketones Negative, Urine Occult Blood Negative, Urine Nitrite Negative, Urine Bilirubin Negative, Urine Urobilinogen Normal, Ur Leukocyte Esterase Negative, Urine RBC 0 SEEN, Urine WBC 0 SEEN, Ur Squamous Epith Cells 0-5 SEEN, Urine Bacteria 0 SEEN, Urine Mucus 0 SEEN 10/13/22 12:45: WBC 9.4, RBC 3.35 L, Hgb 10.3 L, Hct 32.5 L, MCV 97.0, MCH 30.7,MCHC 31.7 L, RDW Std Deviation 48.4 H, RDW Coeff of Mehnaz 13.5, Plt Count 288, MPV9.8, Immature Gran % (Auto) 0.300, Neut % (Auto) 78.3 H, Lymph % (Auto) 12.0 L, Haakon % (Auto) 9.2, Eos % (Auto) 0.0, Baso % (Auto) 0.2, Absolute Neuts (auto) 7.4, Absolute Lymphs (auto) 1.13, Nucleated RBC % 0, Sodium 143, Potassium 3.5, Chloride 112 H, Carbon Dioxide 25.0, Anion Gap 6, BUN 9, Creatinine 0.87, Estim Creat Clear Calc 43.95, Est GFR (MDRD) Af Amer 82, Est GFR (MDRD) Non-Af 68, BUN/Creatinine Ratio 10.3, Glucose 91, Calcium 8.4 L, Total Bilirubin 0.30, AST 18, ALT 14, Alkaline Phosphatase 86, Total Protein 5.7 L, Albumin 2.4 L, Globulin 3.3, Albumin/Globulin Ratio 0.7 L Radiology Impression Abdomen/Pelvis CT 10/13/22 11:08 IMPRESSION: Large amount of fecal material is seen throughout the colon. Pneumatosis seen in the wall of the right hemicolon most likely secondary to the large amount of fecal material. Fatty infiltration of the liver. Distended urinary bladder. Scarring in the lung bases. Electronically Signed: Rafael Sherwood MD at 11:53 EDT , Assessment & Plan Assessment/Plan (1) Paralytic ileus of small intestine and colon: PLAN: Plan This 70-year-old female being admitted after abnormal KUB finding along with clinical symptoms of constipation 1. Colonic ileus: CT abdomen individually reviewed and shows large amount of fecal material throughout the colon. Pneumatosis in right hemicolon wall. Distended urinary bladder patient had Bass catheter in ED.Patient is being admitted on [facility] floor. Started on IV fluid Ringer lactate. Patient startedon oral and bowel regimen for constipation including soapsuds enema twice daily,senna S and Dulcolax oral and suppository. See the abdomen reports normal stomach and small intestine. No need for NG tube 2. Recent history of pneumonia: Patient was admitted in July 2022 for pneumonia. Repeat chest x-ray shows improvement in bilateral basilar airspace disease 3. History of oropharyngeal dysphagia and esophageal dysphagia: During the admission patient had MBS which showed dysphagia as mentioned above. Patient required EGD shows grade a esophagitis dilatation performed in esophagus. Unclear whether she has gastroparesis. 4. 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 Anxiety and depression: Patient on clonazepam and buspirone at home Living will/advanced directive/end of life care: Patient does have living will or advanced directive. After discussion of benefits/risks procedures involved with full code, DNR CC arrest and DNR CC, the patient and her opted forfull code. Patient does want artificial life support including intubation, tube feed, ventilator and/chest compression, central venous catheter, vasopressor and DC shock if needed but she does not want to be in vegetative condition or dependenton ventilator if doctors think that she is terminal with no meaningful recovery Total time spent in [id number] encounter in discussion of advanced directive 17 minutes. Clinical Impression(s) from Imaging Studies Abdomen/Pelvis CT 10/13/22 11:08 IMPRESSION: Large amount of fecal material is seen throughout the colon. Pneumatosis seen in the wall of the right hemicolon most likely secondary to the large amount of fecal material. Fatty infiltration of the liver. Distended urinary bladder. Scarring in the lung bases. Laboratory Results 10/13/22 10:30: Lactic Acid 2.5 H*, Free T4 1.26, Free T3 pg/dL 2.2 10/13/22 11:00: Ammonia < 10.0 L 10/13/22 12:00: Urine Color Yellow, Urine Clarity Sl. Cloudy, Urine pH 6.0, Ur Specific [place] 1.015, Urine Protein Negative, Urine Glucose (UA) 50 H, Urine Ketones Negative, Urine Occult Blood Negative, Urine Nitrite Negative, Urine Bilirubin Negative, Urine Urobilinogen Normal, Ur Leukocyte Esterase Negative, Urine RBC 0 SEEN, Urine WBC 0 SEEN, Ur Squamous Epith Cells 0-5 SEEN, Urine Bacteria 0 SEEN, Urine Mucus 0 SEEN 10/13/22 12:45: WBC 9.4, RBC 3.35 L, Hgb 10.3 L, Hct 32.5 L, MCV 97.0, MCH 30.7,MCHC 31.7 L, RDW Std Deviation 48.4 H, RDW Coeff of Mehnaz 13.5, Plt Count 288, MPV9.8, Immature Gran % (Auto) 0.300, Neut % (Auto) 78.3 H, Lymph % (Auto) 12.0 L, Haakon % (Auto) 9.2, Eos % (Auto) 0.0, Baso % (Auto) 0.2, Absolute Neuts (auto) 7.4, Absolute Lymphs (auto) 1.13, Nucleated RBC % 0, Sodium 143, Potassium 3.5, Chloride 112 H, Carbon Dioxide 25.0, Anion Gap 6, BUN 9, Creatinine 0.87, Estim Creat Clear Calc 43.95, Est GFR (MDRD) Af Amer 82, Est GFR (MDRD) Non-Af 68, BUN/Creatinine Ratio 10.3, Glucose 91, Calcium 8.4 L, Total Bilirubin 0.30, AST 18, ALT 14, Alkaline Phosphatase 86, Total Protein 5.7 L, Albumin 2.4 L, Globulin 3.3, Albumin/Globulin Ratio 0.7 L Charges/Coding Visit Charges Inpatient E&M: 12094 Init Hosp L3 Procedures Hospitalists Procedures: 07506 Advncd Care Plan 30 Min 10/13/22 1513 <Electronically signed by Zia Posey MD> Cosigner Signature (if applicable): CC: Dr. Zia Posey MD; Dr. Harish Luis MD~ Signed [facility] Work Phone: evaluation noteNo assessment information available [facility] Work Phone: Evaluation note* Diagnosis Onset Date Resolution Status Pain from implanted hardware acute [facility] Work Phone: Evaluation note* Diagnosis Onset Date Resolution Status Pain from implanted hardware acute Hypoxemia acute Influenza acute Pneumonia acute Respiratory failure acute [facility] Work Phone: Evaluation note* Diagnosis Onset Date Resolution Status Facial droop acute Hypoxemia resolved Influenza resolved Pneumonia resolved Respiratory failure resolved Paralytic ileus of small intestine and colon acute [facility] Work Phone: Evaluation note* Diagnosis Onset Date Resolution Status Facial droop acute Hypoxemia resolved Influenza resolved Pneumonia resolved Respiratory failure resolved Abnormal CT of the abdomen a cute Paralytic ileus of small intestine and colon acute Urinary retention acute [facility] Work Phone: Evaluation note* Diagnosis Onset Date Resolution Status Facial droop acute Hypoxemia resolved Influenza resolved Pneumonia resolved Respiratory failure resolved Abnormal CT of the abdomen a cute Paralytic ileus of small intestine and colon resolved Urinary retention resolved Acute alteration in mental status acute Influenza B acute [facility] Work Phone: Evaluation note* Diagnosis Onset Date Resolution Status Paralytic ileus of small intestine and colon resolved Urinary retention resolved Abnormal TSH acute Toxic metabolic encephalopathy acute Debility resolved Generalized weakness resolve d Influenza B resolved [facility] Work Phone: Evaluation note* Diagnosis Onset Date Resolution Status Acute dehydration acute Acute hypotension acute Acute kidney injury acute Aspiration pneumonia acute Closed head injury acute Falls acute Fracture of humeral head acu te Hypoxia acute Pulmonary emboli acute [facility] Work Phone: History and physical note Author Zia Posey [facility] October 13, 2022 3:13pm Note Date/Time October 13, 2022 2:42 pm [facility] Medical Records Department [address] [place] [id number] H&P Exam - Hospitalist 10/13/22 1440 MR#: [id number] Acct: [id number] Name: CAROL ZARAGOZA Rep #:[id number] : 1950 72 From: Zia Rivero PCP: Dr. Harish Luis MD Status:ADM I N Location: [place] [address] HPI - General General Date of Admission: 10/13/22 Date of Service: 10/13/22 Chief Complaint: Constipation for long time but acutely for last 2 days HPI Narrative CAROL ZARAGOZA, is a 72 F was sent to ED by PCP Dr. Luis who did outpatient KUB which showed colonic ileus. Patient having irregular bowel movement mainly constipation for last 1 week but did not move bowel for 2 days. She is bloated and has not passed gas for last 2 days. To me, she denies abdominal pain or discomfort but from ER physician note, she had stomach cramps and abdominal discomfort for past 1 week. Prior to that she was admitted in July 2022 for pneumonia/influenza B and she had follow-up chest x-ray by Dr. Luis today which shows improvement in pneumonia. She also had EGD during that hospital course for dysphagia Patient also has difficulty in his starting the urine and she states he pees a lot. She also has sensation of incomplete emptying of bladder and has to go again for PE. No fever. Patient hemodynamically stable in ED with no hypoxia or tachypnea. Labs and CT scan individually reviewed and discussed in assessment plan. Patient is further admitted. [facility] [place] Medical History Allergic rhinitis Ambulates with cane Anxiety Arthritis Asthma Back pain Carpal tunnel syndrome on both sides Chronic cough Chronic lower back pain Closed head injury COVID-19 Debility Depression Depression Dysphagia Edema Former smoker Gastric reflux Gastroparesis Generalized weakness GERD High cholesterol History of stress test HLD (hyperlipidemia) Hypertension Hypoxia Insomnia Irritable bowel syndrome without diarrhea Ischemic bowel disease Low back pain Migraine Migraine headache Movement disorder Pain from implanted hardware Palpitations Palpitations Post-menopausal Scoliosis Scoliosis of lumbar spine Segmental and somatic dysfunction of lumbar region Segmental and somatic dysfunction of pelvic region Segmental dysfunction of thoracic region Shortness of breath on exertion SOB (shortness of breath) Stenosis, cervical spine Uses wheelchair Vitamin D deficiency Walker as ambulation aid Wears dentures Wears glasses Wears hearing aid Home Medications buspirone 7.5 mg tablet 7.5 mg PO BID Check with primary doctor 02/17/20 [History Last Taken 04/26/22] clonazepam 1 mg tablet 1 mg PO TID anxiety 02/17/20 [History Last Taken 04/26/22] gabapentin 400 mg capsule 400 mg PO Q6H Check with primary doctor 04/20/22 [History Last Taken 04/26/22] acetaminophen 325 mg tablet 650 mg (2 x 325 mg) PO Q6H PRN PRN Pain 1-10 Or Fever >100.7 #0 tabs 08/02/22 [Rx Last Taken Unknown] naproxen 500 mg tablet 500 mg PO Q12H 10/13/22 [History Last Taken Unknown] Allergy/AdvReac Type Severity Reaction Status Date / Time hydrocodone [From Vicodin] Allergy NERVOUS, Verified 10/13/22 10:07 JITTERY Penicillins Allergy Rash Verified 10/13/22 10:07 Family History Other CVA (cerebral vascular accident) Cancer Hypertension Surgical History History of 2 sections History of cardiac catheterization History of lumbar laminectomy Hx of dilation and curettage Hx of surgical procedure Social History Smoking Status: Former smoker alcohol intake: never substance use type: does not use what type of physical activity do you participate in: none ROS ROS Narrative 14 system ROS incomplete and difficult to obtain as patient has anxiety on: Is on buspirone and her history is vague. Constitutional: Reports fatigue and weakness. No fever. HEENT: Reports systems reviewed and no addt'l complaints, except as documented Respiratory/Chest: No acute shortness of breath or respiratory distress or wheezing. CVS: No chest pain pressure or tightness Gastrointestinal: Denies coffee ground emesis, hematemesis or vomiting. Rest asmentioned in HPI Genitourinary: No dysuria/burning micturition. Rest as described in HPI Musculoskeletal: Denies acute joint pain or limited range of motion. No acute injury Neurologic: Denies seizure-like symptoms. Psychiatric: Anxiety and depression on antipsychotic medication. skin: No ulcer. No rash Endocrinology: Reports systems reviewed and no addt'l complaints, except as documented Hematologic/Lymphatic: Reports systems reviewed and no addt'l complaints, exceptas documented Rest 14 ROS are negative except as mentioned in HPI Vital Signs Vital Signs Vital Signs: 10/13/22 10:04 10/13/22 10:25 10/13/22 10:33 Temperature 97.3 F L 98.1 F Temperature Source Temporal Temporal Pulse Rate 98 78 Respiratory Rate 12 14 Respiratory Pattern Normal Blood Pressure 126/83 H 132/72 H Blood Pressure Mean 97 92 Pulse Ox 92 Oxygen Delivery Method Room Air Room Air 10/13/22 12:07 10/13/22 13:00 10/13/22 13:51 Temperature 98.2 F 97.3 F L 97.3 F L Temperature Source Temporal Temporal Temporal Pulse Rate 65 75 74 Respiratory Rate 16 16 16 Respiratory Pattern Blood Pressure 118/69 124/66 H 125/69 H Blood Pressure Mean 85 85 87 Pulse Ox 96 99 95 Oxygen Delivery Method Room Air Room Air Room Air Weight Weight: 105 lb Body Mass Index (BMI) 18.6 Physical Exam Narrative General: Alert, Oriented x3, Cooperative HEENT: Atraumatic, PERRLA, EOMI, Normocephalic Oral: Oral mucosa dry. No Gingival or Mucosal Lesions/ Ulcerations Neck: Supple, No JVD, Negative Carotid Bruits Lungs: Air entry diminished in bilateral lung bases. No crepitation/rhonchi Cardiovascular: Regular rate, Regular Rhythm, Normal S1, Normal S2, systolic murmur right second ICS Abdomen: Bowel Sounds very sluggish. Soft, nontender and nondistended. : No renal angle tenderness. No suprapubic tenderness. Extremities: No edema, Capillary Refill Less than 3 Seconds Skin: No rashes, No breakdown Musculoskeletal: No Tenderness to Palpation of Joints or Extremities, muscle strength 4+/5 at knee and hip joints. Neurological: Cranial nerves II-XII grossly intact, DTR 2+/4 and Symmetrical, Neuro grossly intact Psych/Mental Status: Flat affect. Sometimes does not remember her history/tangential in history taking Results Lab / Micro Data 10/13/22 12:45 10/13/22 12:45 Labs: Laboratory Results - last 24 hr 10/13/22 10:30: Lactic Acid 2.5 H*, Free T4 1.26, Free T3 pg/dL 2.2 10/13/22 11:00: Ammonia < 10.0 L 10/13/22 12:00: Urine Color Yellow, Urine Clarity Sl. Cloudy, Urine pH 6.0, Ur Specific [place] 1.015, Urine Protein Negative, Urine Glucose (UA) 50 H, Urine Ketones Negative, Urine Occult Blood Negative, Urine Nitrite Negative, Urine Bilirubin Negative, Urine Urobilinogen Normal, Ur Leukocyte Esterase Negative, Urine RBC 0 SEEN, Urine WBC 0 SEEN, Ur Squamous Epith Cells 0-5 SEEN, Urine Bacteria 0 SEEN, Urine Mucus 0 SEEN 10/13/22 12:45: WBC 9.4, RBC 3.35 L, Hgb 10.3 L, Hct 32.5 L, MCV 97.0, MCH 30.7,MCHC 31.7 L, RDW Std Deviation 48.4 H, RDW Coeff of Mehnaz 13.5, Plt Count 288, MPV9.8, Immature Gran % (Auto) 0.300, Neut % (Auto) 78.3 H, Lymph % (Auto) 12.0 L, Haakon % (Auto) 9.2, Eos % (Auto) 0.0, Baso % (Auto) 0.2, Absolute Neuts (auto) 7.4, Absolute Lymphs (auto) 1.13, Nucleated RBC % 0, Sodium 143, Potassium 3.5, Chloride 112 H, Carbon Dioxide 25.0, Anion Gap 6, BUN 9, Creatinine 0.87, Estim Creat Clear Calc 43.95, Est GFR (MDRD) Af Amer 82, Est GFR (MDRD) Non-Af 68, BUN/Creatinine Ratio 10.3, Glucose 91, Calcium 8.4 L, Total Bilirubin 0.30, AST 18, ALT 14, Alkaline Phosphatase 86, Total Protein 5.7 L, Albumin 2.4 L, Globulin 3.3, Albumin/Globulin Ratio 0.7 L Radiology Impression Abdomen/Pelvis CT 10/13/22 11:08 IMPRESSION: Large amount of fecal material is seen throughout the colon. Pneumatosis seen in the wall of the right hemicolon most likely secondary to the large amount of fecal material. Fatty infiltration of the liver. Distended urinary bladder. Scarring in the lung bases. Electronically Signed: Rafael Sherwood MD at 11:53 EDT , Assessment & Plan Assessment/Plan (1) Paralytic ileus of small intestine and colon: PLAN: Plan This 70-year-old female being admitted after abnormal KUB finding along with clinical symptoms of constipation 1. Colonic ileus: CT abdomen individually reviewed and shows large amount of fecal material throughout the colon. Pneumatosis in right hemicolon wall. Distended urinary bladder patient had Bass catheter in ED.Patient is being admitted on MedSurg floor. Started on IV fluid Ringer lactate. Patient startedon oral and bowel regimen for constipation including soapsuds enema twice daily,senna S and Dulcolax oral and suppository. See the abdomen reports normal stomach and small intestine. No need for NG tube 2. Recent history of pneumonia: Patient was admitted in July 2022 for pneumonia. Repeat chest x-ray shows improvement in bilateral basilar airspace disease 3. History of oropharyngeal dysphagia and esophageal dysphagia: During the admission patient had MBS which showed dysphagia as mentioned above. Patient required EGD shows grade a esophagitis dilatation performed in esophagus. Unclear whether she has gastroparesis. 4. 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 Anxiety and depression: Patient on clonazepam and buspirone at home Living will/advanced directive/end of life care: Patient does have living will or advanced directive. After discussion of benefits/risks procedures involved with full code, DNR CC arrest and DNR CC, the patient and her opted forfull code. Patient does want artificial life support including intubation, tube feed, ventilator and/chest compression, central venous catheter, vasopressor and DC shock if needed but she does not want to be in vegetative condition or dependenton ventilator if doctors think that she is terminal with no meaningful recovery Total time spent in [id number] encounter in discussion of advanced directive 17 minutes. Clinical Impression(s) from Imaging Studies Abdomen/Pelvis CT 10/13/22 11:08 IMPRESSION: Large amount of fecal material is seen throughout the colon. Pneumatosis seen in the wall of the right hemicolon most likely secondary to the large amount of fecal material. Fatty infiltration of the liver. Distended urinary bladder. Scarring in the lung bases. Laboratory Results 10/13/22 10:30: Lactic Acid 2.5 H*, Free T4 1.26, Free T3 pg/dL 2.2 10/13/22 11:00: Ammonia < 10.0 L 10/13/22 12:00: Urine Color Yellow, Urine Clarity Sl. Cloudy, Urine pH 6.0, Ur Specific [place] 1.015, Urine Protein Negative, Urine Glucose (UA) 50 H, Urine Ketones Negative, Urine Occult Blood Negative, Urine Nitrite Negative, Urine Bilirubin Negative, Urine Urobilinogen Normal, Ur Leukocyte Esterase Negative, Urine RBC 0 SEEN, Urine WBC 0 SEEN, Ur Squamous Epith Cells 0-5 SEEN, Urine Bacteria 0 SEEN, Urine Mucus 0 SEEN 10/13/22 12:45: WBC 9.4, RBC 3.35 L, Hgb 10.3 L, Hct 32.5 L, MCV 97.0, MCH 30.7,MCHC 31.7 L, RDW Std Deviation 48.4 H, RDW Coeff of Mehnaz 13.5, Plt Count 288, MPV9.8, Immature Gran % (Auto) 0.300, Neut % (Auto) 78.3 H, Lymph % (Auto) 12.0 L, Haakon % (Auto) 9.2, Eos % (Auto) 0.0, Baso % (Auto) 0.2, Absolute Neuts (auto) 7.4, Absolute Lymphs (auto) 1.13, Nucleated RBC % 0, Sodium 143, Potassium 3.5, Chloride 112 H, Carbon Dioxide 25.0, Anion Gap 6, BUN 9, Creatinine 0.87, Estim Creat Clear Calc 43.95, Est GFR (MDRD) Af Amer 82, Est GFR (MDRD) Non-Af 68, BUN/Creatinine Ratio 10.3, Glucose 91, Calcium 8.4 L, Total Bilirubin 0.30, AST 18, ALT 14, Alkaline Phosphatase 86, Total Protein 5.7 L, Albumin 2.4 L, Globulin 3.3, Albumin/Globulin Ratio 0.7 L Charges/Coding Visit Charges Inpatient E&M: 45129 Init Hosp L3 Procedures Hospitalists Procedures: 77294 Advncd Care Plan 30 Min 10/13/22 1513 <Electronically signed by Zia Posey MD> Cosigner Signature (if applicable): CC: Dr. Zia Posey MD; Dr. Harish Luis MD~ Signed [facility] Work Phone: Hospital Discharge instructions Additional Instructions I prescribed tramadol and prednisone which is a steroid to treat your chronic pain. You can continue taking Aleve. Please follow-up with your primary care doctor next week. [facility] Work Phone: Reason for referral (narrative)No reason for referral information availableWooDiley [facility] Work Phone: Family History Relationship Condition Age at Onset Recorded Date/T [place] Not Specified Malignant neoplasm Unknown Hypertension Unknown Cerebrovascular accident (CVA) Unknown Relationship Condition Age at Onset Recorded Date/T to[place] mother Hypertension Unknown Cerebrovascular accident (CVA) Unknown Cardiac disease Unknown Cerebral hemorrhage Unknown father Malignant neoplasm Unknown Advance Directives Advance Directive Response Recorded Date/ Time Advance Directives Yes January 21, 2015 5:23pm Living Will Yes February 16 3:26pm Power of Artist Suspect Yes February 17, 2020 3:26pm Advance Directive Response Recorded Date/ Time Advance Directives Yes January 21, 2015 4:23pm Living Will Yes February 16 2:26pm Power of Artist Suspect Yes February 17, 2020 2:26pm Advance Directive Response Recorded Date/ Time Name of Medical Power of Artist Suspect IRVING LOVER April 20, 2022 11:20am Advance Directives Yes January 21, 2015 5:23pm Living Will Yes April 20 11:20am Power of Artist Suspect Yes April 20, 2022 11:20am Advance Directive Response Recorded Date/ Time Name of Medical Power of Artist Suspect IRVING LOVER April 20, 2022 11:20am Name of Medical Power of Artist Suspect July 29, 2022 7:49am Advance Directives Yes January 21, 2015 5:23pm Living Will Yes July 29, 2022 7 :49am Power of Artist Suspect Yes July 29, 2022 7:49am Advance Directive Response Recorded Date/ Time Name of Medical Power of Artist Suspect July 29, 2022 10:09am Name of Medical Power of Artist Suspect Jose Lover October 13, 2022 10:25am Advance Directives Yes January 21, 2015 5:23pm Living Will Yes October 13, 2022 10:25am Power of Artist Suspect Yes October 13 10:25am Advance Directive Response Recorded Date/ Time Name of Medical Power of Artist Suspect July 29, 2022 10:09am Name of Medical Power of Artist Suspect Jose Lover October 13, 2022 3:38pm Advance Directives Yes January 21, 2015 5:23pm Living Will Yes October 13, 2022 3:38pm Power of Artist Suspect Yes October 13 3:38pm Advance Directive Response Recorded Date/ Time Name of Medical Power of Artist Suspect July 29, 2022 10:09am Name of Medical Power of Artist Suspect Jose Lover October 13, 2022 3:38pm Name of Medical Power of Artist Suspect November 01, 2022 7:48am Advance Directives Yes January 21, 2015 5:23pm Living Will Yes November 01 7:48am Power of Artist Suspect Yes November 01, 023 7:48am Advance Directive Response Recorded Date/ Time Name of Medical Power of Artist Suspect Jose Lover October 13, 2022 3:38pm Name of Medical Power of Artist Suspect November 01, 2022 7:48am Advance Directives Yes January 21, 2015 5:23pm Living Will No November 01 11:39am Power of Artist Suspect No November 01 023 11:39am Advance Directive Response Recorded Date/ Time Advance Directives Yes January 21, 2015 4:23pm Living Will No March 17, 2 023 1:30pm Power of Artist Suspect No March 17, 2023 1:30pm Advance Directive Response Recorded Date/ Time Advance Directives Yes January 21, 2015 5:23pm Living Will No March 17, 2 023 2:30pm Power of Artist Suspect No March 17, 2023 2:30pm Advance Directive Response Recorded Date/ Time Advance Directives Yes January 21, 2015 5:23pm Living Will No July 24, 2023 8: 00pm Power of Artist Suspect No July 24, 2023 8:00pm Advance Directive Response Recorded Date/ Time Advance Directives Yes January 21, 2015 5:23pm Living Will No July 30, 2023 1 :46pm Power of Artist Suspect No July 30, 2023 1:46pm Advance Directive Response Recorded Date/ Time Living Will Yes June 04, 2024 3:44pm Do you have a Healthcare Pow er of Artist Suspect? Yes June 04, 2024 3:44pm Name of Medical Power of Artist Suspect Jose pantoja June 04, 2024 3:44pm Advance Directives Yes October 25 024 3:30pm Advance Directive Response Recorded Date/ Time Living Will Yes June 04, 2024 3:44pm Do you have a Healthcare Pow er of Artist Suspect? Yes June 04, 2024 3:44pm Name of Medical Power of Artist Suspect Jose pantoja June 04, 2024 3:44pm Do you have a Healthcare Pow er of Artist Suspect? No August 27, 2024 3:36pm Advance Directives Yes October 25 2 024 3:30pm Chief Complaint and Reason for Visit Chief Complaint SCREENING Chief Complaint SCREENING SCREENING Chief Complaint SCREENING SCREENING PREOP explantation of spinal cord stim generator battery VIRAL SYMPTOMS CLOSED HEAD INJURY Reason for Visit Pain from implanted hardware Chief Complaint SCREENING SCREENING PREOP explantation of spinal cord stim generator battery VIRAL SYMPTOMS CLOSED HEAD INJURY PNEUMONIA, HYPOXIA Reason for Visit Pain from implanted hardware Hypoxemia Influenza Pneumonia Respiratory failure Chief Complaint VIRAL SYMPTOMS CLOSED HEAD INJURY PNEUMONIA, HYPOXIA PNEUMONIA, HYPOXIA PNEUMONIA, HYPOXIA PNEUMONIA, HYPOXIA PNEUMONIA, HYPOXIA PNEUMONIA, HYPOXIA PNEUMONIA, HYPOXIA PNEUMONIA, HYPOXIA PNEUMONIA, HYPOXIA FALL DOWN BASEMENT STEPS CLOSED HEAD INJURY ABDOMINAL ILEUS ABDOMINAL ILEUS Reason for Visit Facial droop Hypoxemia Influenza Pneumonia Respiratory failure Paralytic ileus of small intestine and colon Chief Complaint VIRAL SYMPTOMS CLOSED HEAD INJURY PNEUMONIA, HYPOXIA PNEUMONIA, HYPOXIA PNEUMONIA, HYPOXIA PNEUMONIA, HYPOXIA PNEUMONIA, HYPOXIA PNEUMONIA, HYPOXIA PNEUMONIA, HYPOXIA PNEUMONIA, HYPOXIA PNEUMONIA, HYPOXIA FALL DOWN BASEMENT STEPS CLOSED HEAD INJURY ABDOMIAL ILEUS ABDOMINAL ILEUS ABDOMIAL ILEUS Reason for Visit Facial droop Hypoxemia Influenza Pneumonia Respiratory failure Abnormal CT of the abdomen Paralytic ileus of small intestine and colon Urinary retention Chief Complaint VIRAL SYMPTOMS CLOSED HEAD INJURY PNEUMONIA, HYPOXIA PNEUMONIA, HYPOXIA PNEUMONIA, HYPOXIA PNEUMONIA, HYPOXIA PNEUMONIA, HYPOXIA PNEUMONIA, HYPOXIA PNEUMONIA, HYPOXIA PNEUMONIA, HYPOXIA PNEUMONIA, HYPOXIA FALL DOWN BASEMENT STEPS CLOSED HEAD INJURY ABDOMIAL ILEUS ABDOMINAL ILEUS ABDOMIAL ILEUS ABDOMIAL ILEUS Reason for Visit Facial droop Hypoxemia Influenza Pneumonia Respiratory failure Abnormal CT of the abdomen Paralytic ileus of small intestine and colon Urinary retention Chief Complaint CLOSED HEAD INJURY PNEUMONIA, HYPOXIA PNEUMONIA, HYPOXIA PNEUMONIA, HYPOXIA PNEUMONIA, HYPOXIA PNEUMONIA, HYPOXIA PNEUMONIA, HYPOXIA PNEUMONIA, HYPOXIA PNEUMONIA, HYPOXIA PNEUMONIA, HYPOXIA FALL DOWN BASEMENT STEPS CLOSED HEAD INJURY ABDOMIAL ILEUS ABDOMINAL ILEUS ABDOMIAL ILEUS ABDOMIAL ILEUS AMS, INABILITY TO AMBULATE Reason for Visit Facial droop Hypoxemia Influenza Pneumonia Respiratory failure Abnormal CT of the abdomen Paralytic ileus of small intestine and colon Urinary retention Acute alteration in mental status Influenza B Chief Complaint CLOSED HEAD INJURY ABDOMIAL ILEUS ABDOMINAL ILEUS ABDOMIAL ILEUS ABDOMIAL ILEUS AMS, INABILITY TO AMBULATE AMS, INABILITY TO AMBULATE AMS, INABILITY TO AMBULATE AMS, INABILITY TO AMBULATE PREOP AMS, INABILITY TO AMBULATE AMS, INABILITY TO AMBULATE Reason for Visit Paralytic ileus of s mall intestine and colon Urinary retention Abnormal TSH Toxic metabolic encephalopathy Debility Generalized weakness Influenza B Chief Complaint BACK Chief Complaint shoulder pain Chief Complaint shoulder pain Anorexia PNA, PE, DEE, HYPOXIA Reason for Visit Acute dehydration Acute hypotension Acute kidney injury Aspiration pneumonia Closed head injury Falls Fracture of humeral head Hypoxia Pulmonary emboli Chief Complaint Admit Date HEADACHES March 31, 2024 2 :02pm FALL, R SHOULDER PAIN June 04, 2024 3 :08pm Chief Complaint Admit Date FALL, R SHOULDER PAIN June 04, 2024 3 :08pm Unspecified injury of head, initial enco unter July 15, 2024 3:35pm CAP W/ENCEPHALOPATHY August 27, 2024 5:1 3pm Summary Purpose Additional Source Comments Care Teams (unrecognized sec tion and content) Team Status: Active Member Role Status Dates Dr. Harish Luis MD Family Provider Active Dr. Harish Luis MD Primary Care Provider Active Team Status: Inactive Member Role Status Dates Dr. Harish Luis MD Primary Care Provider, Attending Provider Active Team Status: Active Member Role Status Dates Dr. Harish Luis MD Primary Care Provi lizett, Attending Provider, Referring Provider Active Team Status: Inactive Member Role Status Dates Dr. Harish Luis MD Primary Care Provi lizett, Attending Provider, Referring Provider Active Team Status: Active Member Role Status Dates Dr. Harish Luis MD Primary Care Provider Active Dr. Jose Renee MD Attending Provider Active Dr. Demond Manley DO Referring Provider Active Team Status: Inactive Member Role Status Dates Dr. Harish Luis MD Primary Care Provider Active Dr. Demond Manley DO Attending Provider, Referring P henok Active Team Status: Active Member Role Status Dates Dr. Harish Luis MD Primary Care Provider Active Dr. Dimitry Rosales DO Emergency Provider Active Dr. Rafita Siddiqui DO Admit Provider, Attending Pro vider Active Team Status: Active Member Role Status Dates Dr. Harish Luis MD Primary Care Provider Active Dr. Dimitry Rosales DO Emergency Provider Active Dr. Rafita Siddiqui DO Admit Provider, Attending Provider, Other Provider Active Team Status: Active Member Role Status Dates Dr. Harish Luis MD Primary Care Provider Active Dr. Dimitry Rosales DO Emergency Provider Active Dr. Rafita Siddiqui DO Admit Provider, Other Provide r Active Dr. Doni Hanson , DO Attending Provider, Other Provid er Active Team Status: Active Member Role Status Dates Dr. Harish Luis MD Primary Care Provider Active Dr. Dimitry Rosales DO Emergency Provider Active Dr. Rafita Siddiqui , DO Admit Provider, Other Provide r Active Dr. Doni Hanson , DO Referring Provider, Other Provid er Active Dr. Gurmeet Zarate , DO Attending Provider Active Team Status: Active Member Role Status Dates Dr. Harish Luis MD Primary Care Provider Active Dr. Gurmeet Zarate DO Attending Provider Active Dr. Doni Hanson , Referring Provider Active Team Status: Active Member Role Status Dates Dr. Harish Luis MD Primary Care Provider Active Dr. Vanessa Saunders MD Attending Provider Active Dr. Sondra Rooney MD Referring Provider Active Team Status: Active Member Role Status Dates Dr. Harish Luis MD Primary Care Provider Active Dr. Sheyla Slade DO Emergency Provider Active Dr. Nallely Mccann MD Other Provider Active Dr. Zia Posey MD Admit Provider, A ttending Provider, Other Provider Active Team Status: Inactive Member Role Status Dates Dr. Harish Luis MD Primary Care Provider Active Dr. Dimitry Rosales , DO Emergency Provider Active Dr. Rafita Siddiqui DO Admit Provider, Other Provide r Active Dr. Doni Hanson DO Attending Provider Active Team Status: Inactive Member Role Status Dates Dr. Harish Luis MD Primary Care Provider Active Dr. Dannie Potts , DO Attending Provider, Emergency Pr ovider Active Team Status: Active Member Role Status Dates Dr. Harish Luis MD Primary Care Provider Active Dr. Sheyla Slade DO Emergency Provider Active Dr. Nallely Mccann MD Other Provider Active Dr. Zia Posey MD Admit Provider, Attending Provi lizett Active Team Status: Active Member Role Status Dates Dr. Harish Luis MD Primary Care Provider, Attending Provider Active Team Status: Active Member Role Status Dates Dr. Harish Luis MD Primary Care Provider Active Dr. Sheyla Slade DO Emergency Provider Active Dr. Zia Posey MD Admit Provider, Other Provider Active Dr. Nallely Mccann MD Attending Provider, Other Pro vider Active Team Status: Inactive Member Role Status Dates Dr. Harish Luis MD Primary Care Provider Active Dr. Sheyla Slade DO Emergency Provider Active Dr. Zia Posey MD Admit Provider, Attending Provi lizett Active Dr. Nallely Mccann MD Other Provider Active Team Status: Active Member Role Status Dates Dr. Harish Luis MD Primary Care Provider Active Dr. Sheyla Slade DO Emergency Provider Active Dr. Zia Posey MD Admit Provider, A ttending Provider, Other Provider Active Dr. Nallely Mccann MD Other Provider Active Team Status: Active Member Role Status Dates Dr. Harish Luis MD Primary Care Provider Active Dr. Armando Miranda DO Emergency Provider Active Dr. Helena Ann DO Admit Provider, Attending Provide r Active Team Status: Active Member Role Status Dates Dr. Harish Luis MD Primary Care Provider Active Dr. Armando Miranda DO Emergency Provider Active Dr. Helena Ann DO Admit Provider, Att ending Provider, Other Provider Active Team Status: Active Member Role Status Dates Dr. Harish Luis MD Primary Care Provider Active Dr. Armando Miranda DO Emergency Provider Active Dr. Helena Ann DO Admit Provider, Other Provider Ac tive Dr. Jesse Camejo MD Attending Provider, Other Provider Active Team Status: Active Member Role Status Dates Dr. Harish Luis MD Primary Care Provider Active Dr. Armando Miranda DO Emergency Provider Active Dr. Helena Ann DO Admit Provider, Other Provider Ac tive Dr. Jesse Camejo MD Referring Provider, Other Provider Active Dr. Gurmeet Zarate DO Attending Provider Active Team Status: Active Member Role Status Dates Dr. Harish Luis MD Primary Care Provider Active Dr. Gurmeet Zarate DO Attending Provider Active Dr. Jesse Camejo MD Referring Provider Active Team Status: Active Member Role Status Dates Dr. Harish Luis MD Primary Care Provider Active Dr. Rivka Lombardi MD Attending Provider Active Dr. Jesse Camejo MD Referring Provider Active Team Status: Inactive Member Role Status Dates Dr. Harish Luis MD Primary Care Provider Active Dr. Armando Miranda DO Emergency Provider Active Dr. Helena Ann DO Admit Provider, Other Provider Ac tive Dr. Jesse Camejo MD Attending Provider Active Team Status: Inactive Member Role Status Dates Dr. Harish Luis MD Primary Care Provider Active Dr. Gladys Anne MD Emergency Provider Active Team Status: Inactive Member Role Status Dates Dr. Harish Luis MD Primary Care Provider Active Dr. Gladys Anne MD Attending Provider, Emergency Provider Active Team Status: Inactive Member Role Status Dates Dr. Harish Luis MD Primary Care Provider Active Dr. Doni Calderon DO Emergency Provider Active Team Status: Active Member Role Status Dates Dr. Harish Luis MD Primary Care Provider Active Dr. Guilherme Collins MD Emergency Provider Active Dr. Anastasia Khan MD Admit Provider, Attending Prov ider Active Team Status: Active Member Role Status Dates Dr. Harish Luis MD Primary Care Provider Active Team Status: Inactive Member Role Status Dates Dr. Harish Luis MD Primary Care Provider Active Start: February 19, 2024 End: February 19, 2024 Dr. Harish Luis MD Attending Provider Active Start: February 19, 2024 End: February 19, 2024 Team Status: Inactive Member Role Status Dates Dr. Harish Luis MD Primary Care Provider Active Start: March 31, 2024 End: March 31, 2024 Dr. Harish Luis MD Attending Provider Active Start: March 31, 2024 End: March 31, 2024 Dr. Harish Luis MD Referring Provider Active Start: March 31, 2024 End: March 31, 2024 Team Status: Inactive Member Role Status Dates Dr. Harish Luis MD Primary Care Provider Active Start: June 04, 2024 End: June 04, 2024 Dr. Irving White DO Emergency Provider Active Start: June 04, 2024 End: June 04, 2024 Team Status: Inactive Member Role Status Dates Dr. Harish Luis MD Primary Care Provider Active Start: June 04, 2024 End: June 04, 2024 Dr. Irving White DO Attending Provider Active Start: June 04, 2024 End: June 04, 2024 Dr. Irving White DO Emergency Provider Active Start: June 04, 2024 End: June 04, 2024 Team Status: Inactive Member Role Status Dates Dr. Harish Luis MD Primary Care Provider Active Start: July 15, 2024 End: July 15, 2024 Dr. Harish Luis MD Attending Provider Active Start: July 15, 2024 End: July 15, 2024 Dr. Harish Luis MD Referring Provider Active Start: July 15, 2024 End: July 15, 2024 Team Status: Active Member Role Status Dates Dr. Harish Luis MD Primary Care Provider Active Start: August 27, 2024 Dr. Huber Ballard MD Emergency Provider Active Sta rt: August 27, 2024 Dr. Christofer Espino DO Admit Provider Active Start: August 27, 2024 Dr. Christofer Espino DO Attending Provider Active Start: August 27, 2024 INFORMATION SOURCE (unrecogn ized section and content) DATE CREATED AUTHOR 07/24/2024 [facility] FOR RECORDS PERTAINING TO PATIENTS WHO ARE OR HAVE BEEN ENROLLED IN A CHEMICAL DEPENDENCY/SUBSTANCEABUSE PROGRAM, SOME INFORMATION MAY BE OMITTED. This clinical summary was aggregated from multiple sources. Caution should be exercised in using it in the provision of clinical care. This summary normalizes information from multiple sources, and as a consequence, information in this document may materially change the coding, format and clinical context of patient data. In addition, data may be omitted in some cases. CLINICAL DECISIONS SHOULD BE BASED ON THE PRIMARY CLINICAL RECORDS. [employer] provides no warranty or guarantee of the accuracy or completeness of information in this document.
[2024-08-27] MEDS: DOXEPIN HCL 50 MG CAPSULE 150 MG PO (22:22)
[2024-08-27] MEDS: busPIRone 15 MG TABLET 7.5 MG PO (22:23)
[2024-08-28] VITALS (7 sets, daily range): BP systolic 100–152; BP diastolic 60–82; PULSE 75–81; RESP 16–18; TEMP 36.4–37.5; O2SAT 92–97
[2024-08-28] MEDS: Acetaminophen 325 MG Tablet 650 MG PO (05:32)
[2024-08-28 06:19] LABS: Hematocrit 29.4 % (37-47); Hemoglobin 9.7 g/dL (12.0-15.0); Mean Corpuscular Hgb 31.7 pg (27.0-32.0); Mean Corpuscular Volume 96.1 fL (81-99); Mean Platelet Vol. 9.8 fl (6.2-12.0); Platelet Count 278 K/mm3 (150-450); RBC Distribution Width CV 13.4 % (11.6-14.6); RBC Distribution Width SD 47.2 fl (35.1-43.9); Red Blood Count 3.06 M/mm3 (4.2-5.4); White Blood Count 4.8 K/mm3 (4.4-11.0)
[2024-08-28 06:53] LABS: Anion Gap 11 (5-15); BUN 9 mg/dL (4-19); BUN/Creat Ratio 11.6 RATIO (10-20); Calcium,Total 7.7 mg/dL (7.6-11.0); Carbon Dioxide 20.4 mmol/L (21.0-32.0); Chloride 109 mmol/L (98-108); Creatinine, Serum 0.78 mg/dL (0.70-1.20); EST Glomerular Filtration Rate 79 (>60); Estimated Creatinine Clearance 47.71 ml/min (50-250); Glucose 70 mg/dL (70-99); Potassium 3.3 mmol/L (3.3-5.1); Sodium Level 140 mmol/L (133-145)
[2024-08-28 09:56] LABS: Magnesium 1.9 mg/dL (1.5-2.2); Phosphorus 2.7 mg/dL (2.7-4.5)
[2024-08-28] MEDS: Azithromycin 500 MG in 0.9% Normal Saline (250mL Bag) 250 ML 255 MG IV (10:05)
[2024-08-28] MEDS: 0.9% Saline Lock 10 ML Syringe IV ×3 (10:08→21:22)
[2024-08-28] MEDS: Pantoprazole Sodium 20 MG Tablet PO (10:09)
[2024-08-28] MEDS: Metoprolol(XL)Succ 25 MG Tablet PO (10:09)
[2024-08-28] MEDS: busPIRone 15 MG TABLET 7.5 MG PO ×2 (10:10→21:20)
--- NOTE | 2024-08-28 11:13 | PN.HOSP_ITS ---
Reason for Visit Reason for Visit: Diagnoses Unspecified infectious disease (08/27/24) Other encephalopathy (08/27/24) Pneumonitis due to inhalation of food and vomit (08/27/24) Subjective Subjective Saw patient at bedside this morning, present. Patient was more alert today and was oriented x 3. She was more calm appearing and less anxious. She was breathing comfortably on room air at rest. Denied any fevers or chills. Noted that she still did not feel hungry but was feeling somewhat thirsty. No other new concerns today. Objective Data Objective Data Vital Signs: Vital Signs Temp Pulse Resp BP Pulse Ox O2 Del Method 97.5 F L 78 18 103/62 93 Room Air 08/28/24 09:45 08/28/24 10:09 08/28/24 09:45 08/28/24 10:09 08/28/24 09:45 08/28/24 09:45 Oxygen Delivery Method Room Air Weight: 48.988 kg Body Mass Index (BMI) 19.7 Intake & Output: Intake and Output for Last 24 Hours 08/26/24 08/27/24 08/28/24 23:59 23:59 23:59 Intake Total 2305 / 2605 600 / 600 Output Total 600 / 1000 400 / 400 Balance 1705 / 1605 200 / 200 Lab / Micro Data 08/28/24 05:05 08/28/24 05:05 Labs: Laboratory Results - last 24 hr 08/27/24 16:00: WBC 6.5, RBC 3.82 L, Hgb 12.1, Hct 36.2 L, MCV 94.8, MCH 31.7, MCHC 33.4, RDW Std Deviation 46.5 H, RDW Coeff of Mehnaz 13.2, Plt Count 332, MPV 9.6, Immature Gran % (Auto) 0.300, Neut % (Auto) 86.9 H, Lymph % (Auto) 7.0 L, [place] % (Auto) 5.1, Eos % (Auto) 0.2, Baso % (Auto) 0.5, Absolute Neuts (auto) 5.6, Absolute Lymphs (auto) 0.45 L, Nucleated RBC % 0, PT 13.4, INR 1.0, APTT 36.4 H, Sodium 136, Potassium 4.3, Chloride 102, Carbon Dioxide 22.4, Anion Gap 11, BUN 13, Creatinine 1.08, Estim Creat Clear Calc 35.35 L, Est GFR (MDRD) Non- Af 54 L, BUN/Creatinine Ratio 12.2, Glucose 91, Lactic Acid 1.1, Calcium 8.4, Total Bilirubin 0.24, AST 53 H, ALT 19, Alkaline Phosphatase 97, Total Protein 6.6, Albumin 3.3 L, Globulin 3.3, Albumin/Globulin Ratio 1.0 08/27/24 16:15: Urine Color Yellow, Urine Clarity Sl Cldy, Urine pH 6.0, Ur Specific Adger 1.015, Urine Protein 30 H, Urine Glucose (UA) Normal, Urine Ketones Negative, Urine Occult Blood Negative, Urine Nitrite Negative, Urine Bilirubin Negative, Urine Urobilinogen Normal, Ur Leukocyte Esterase Negative, Urine RBC 0-5 SEEN, Urine WBC 5-10 SEEN, Ur Squamous Epith Cells 0-5 SEEN, Urine Bacteria RARE, Urine Mucus 0 SEEN, Urine Yeast 2+ 08/28/24 05:05: WBC 4.8, RBC 3.06 L, Hgb 9.7 L, Hct 29.4 L, MCV 96.1, MCH 31.7, MCHC 33.0, RDW Std Deviation 47.2 H, RDW Coeff of Mehnaz 13.4, Plt Count 278, MPV 9.8, Sodium 140, Potassium 3.3, Chloride 109 H, Carbon Dioxide 20.4 L, Anion Gap 11, BUN 9, Creatinine 0.78, Estim Creat Clear Calc 47.71 L, Est GFR (MDRD) Non- Af 79, BUN/Creatinine Ratio 11.6, Glucose 70, Calcium 7.7 08/28/24 05:24: Phosphorus 2.7, Magnesium 1.9 Micro: Microbiology 08/27/24 16:15 Urine, Clean Catch Legionella Antigen - Final 08/27/24 16:15 Urine, Clean Catch Streptococcus pneumoniae Antigen (M - Final Radiography Diagnostic Testing: Radiology Impression Chest X-Ray 08/27/24 15:55 IMPRESSION: Mildly increased patchy opacity within the left lower lobe and mildly decreased patchy opacity within the right lower lobe. Otherwise grossly unchanged Reading Location: [facility] Physical Exam Const alert and no apparent distress Constitutional Narrative: Elderly female, thin and chronically ill-appearing, now alert and oriented x 3 and more calm appearing, answering questions appropriately, sitting back comfortably in bed and in no acute distress. Improving. General Appearance: cooperative and comfortable HEENT normocephalic, head/scalp atraumatic, hearing grossly normal bilaterally, nasal mucous membranes and turbinates normal and moist oral mucous membranes Eyes PERRL, EOMs intact bilaterally and conjunctivae normal Neck full ROM Chest inspection of chest normal Resp normal respiratory effort and no use of accessory muscles Resp Narrative: Breathing comfortably on room air at rest. Decreased breath sounds at bilateral lung bases with crackles noted. No wheezing noted. Stable. Cardio regular rate, regular rhythm, no murmurs and peripheral pulses 2+ throughout GI normal to inspection, nondistended, normoactive bowel sounds, soft to palpation, non-tender and non-distended Back/Spine normal ROM Extremity normal to inspection, full ROM and no pedal edema Skin no rashes or lesions noted Neuro moves all extremities and no focal motor deficits Motor Exam: strength 5/5 throughout Psych mental status grossly normal Assessment & Plan Assessment/Plan (1) Encephalopathy due to infection: (2) Aspiration pneumonia: PLAN: Plan Patient is a 74-year-old female who presented [facility] ED on 08/27/2024 with fevers, cough and confusion. 1. Suspected aspiration pneumonia ? Speech therapy following. Met SIRS criteria on admission with fevers, tachycardia and tachypnea. Did have metabolic encephalopathy as noted below as well suspected secondary to infection. However, did not meet sepsis criteria given normal lactate, no hypotension, no DEE or other endorgan dysfunction. Chest x-ray on admit suspicious for aspiration pneumonia. Known history of oropharyngeal dysphagia as noted below. Continue treatment with IV ceftriaxone and azithromycin. Per speech therapy, okay for pur?ed textures with thin liquid diet but recommendation is for repeat MBSS as well as GI evaluation for consideration of EGD. He GI consult placed and will keep n.p.o. at midnight for likely EGD tomorrow. 2. Acute metabolic encephalopathy, improving ? Alert and oriented x [address] but not time on admit and had poor insight into medical condition. Much improved on hospital day 2, now alert and oriented x 3 and more calm on exam with better insight into medical condition. Okay to continue home medications as below. Continue to monitor. 3. Chronic oropharyngeal and esophageal dysphagia ? Speech therapy following as above. Presented in December 2023 for with concern for aspiration pneumonitis and had barium swallow study done that showed mild to moderate oropharyngeal dysphagia and concern for esophageal dysphagia. Notably had an EGD with Dr. Zarate in 10/2022 that showed a tortuous esophagus, abnormal esophageal motility suspicious for presbyesophagus that was injected with botulinum toxin, and mild Schatzki ring that was dilated. Did not have a repeat EGD done during the recent December admission. Speech therapy following as above and GI consulted for consideration of repeat EGD. 4. Suspected malnutrition ? Nutrition following. BMI 19 on admit with suspected poor p.o. intake in setting of dysphagia as above. Advanced to pur?ed textures with thin liquid diet on 08/28 as above. Appreciate further nutrition recommendations. 5. Anxiety/depression ? Continue home BuSpar, clonazepam 3 times daily as needed and doxepin at night. 6. GERD ? Continue home PPI. DVT prophylaxis: Lovenox CODE STATUS: Full code, unverified Expected disposition: TBD Total clinical time spent by myself addressing the patient's medical issues, reviewing all the data, and collaborating with patient's care team: 35 minutes. Charges/Coding Visit Charges Inpatient E&M: 78010 Subs Hosp L2
[2024-08-28] MEDS: Ceftriaxone 2 GM in 0.9% Normal Saline (50mL MB+) 50 ML IV (11:37)
--- NOTE | 2024-08-28 14:40 | CASEMGMT ---
RN?CM?[employer]?CM?to room to meet with patient for initial transition planning/care coordination?assessment.?RN?CM?introduced self and role at [facility].? Pt voices understanding and consents to?assessment?at this time.? Pt resting in bed in no distress at this time.? Pt is A/O at this time and answers all questions appropriately.?? Care providers, pharmacy, and demographics verified/updated at this time. PCP: Dr Luis Specialists: Pt has been to Dr Tovar, Dr Seo, Dr Coburn in the past but does not plan to return to them. Preferred Pharmacy: [facility] Insurance: [place] Secure Prescription Benefit:?Yes LNOK: , [place] Living Arrangements: Lives w/ in a 2-story home w/2 steps to enter. Pt states she is independent w/ADL's and IADL's. Transportation:?Pt does not drive. drives. DME: [facility] has the following DME:?shower chair, cane, walker, extended tub bench, grab bars, ?Pt states no need for further DME at this time.? HHC/SNF: No hx of either. Pt wishes to return home and states has no concerns with going home at time of discharge.?She declines wanting HHC, but states has gone to [facility] in the past and would be willing to take a script for OP therapy again. ST eval pending. CM?to follow for any further discharge planning/needs.? Pt voices no further concerns/needs at this time.? Advised pt to ask for?CM?if any further questions/concerns/needs arise.? Voices understanding. PLAN:??Home w/script for OP PT ST eval pending. Follow for any recommendations. Lamberto REHMANN?RN?CM
[2024-08-28] MEDS: Metoclopramide 10 MG/2 ML Vial 5 MG IV (15:44)
[2024-08-28] MEDS: dexAMETHasone 4 MG/ML Vial 2 MG IV (15:44)
[2024-08-28] MEDS: DOXEPIN HCL 50 MG CAPSULE 150 MG PO (21:20)
[2024-08-29 03:00] VITALS: BP 145/76; PULSE 66; RESP 16; TEMP 36.9; O2SAT 92
[2024-08-29 05:04] LABS: Hematocrit 29.9 % (37-47); Mean Corp Hgb Conc 33.4 g/dL (32-36); Mean Corpuscular Hgb 31.6 pg (27.0-32.0); Mean Corpuscular Volume 94.6 fL (81-99); Mean Platelet Vol. 9.7 fl (6.2-12.0); Platelet Count 284 K/mm3 (150-450); RBC Distribution Width CV 13.2 % (11.6-14.6); RBC Distribution Width SD 45.9 fl (35.1-43.9); Red Blood Count 3.16 M/mm3 (4.2-5.4); White Blood Count 4.4 K/mm3 (4.4-11.0)
[2024-08-29 05:52] LABS: Anion Gap 11 (5-15); BUN 9 mg/dL (4-19); BUN/Creat Ratio 11.8 RATIO (10-20); Calcium,Total 8.3 mg/dL (7.6-11.0); Carbon Dioxide 20.9 mmol/L (21.0-32.0); Chloride 109 mmol/L (98-108); Creatinine, Serum 0.73 mg/dL (0.70-1.20); EST Glomerular Filtration Rate 86 (>60); Estimated Creatinine Clearance 47.71 ml/min (50-250); Glucose 75 mg/dL (70-99); Potassium 3.6 mmol/L (3.3-5.1); Sodium Level 141 mmol/L (133-145)
[2024-08-29 07:54] VITALS: BP 141/89; PULSE 80; RESP 18; TEMP 36.2; O2SAT 93
[2024-08-29] MEDS: Azithromycin 500 MG in 0.9% Normal Saline (250mL Bag) 250 ML 255 MG IV (09:21)
[2024-08-29] MEDS: Ceftriaxone 2 GM in 0.9% Normal Saline (50mL MB+) 50 ML IV (10:48)
--- NOTE | 2024-08-29 12:50 | DCINST_ITS ---
Discharge Instructions DC O2, CPAP, BIPAP needs Home O2 Discharge instructions: No Dressing / Incision Discharge Activity: No Restrictions Follow Up Care Test Results: Test results from this visit will be discussed in further detail at your follow- up appointment, if applicable. Discharge Plan Admission Admit Date/Time: 08/27/24 17:13 Primary Reason for Your Visit: confusion w/ fevers Attending Provider: Christofer Espino Primary Care Provider: Harish Luis Chi Discharge Orders/Prescriptions Prescriptions: New doxycycline hyclate 100 mg tablet 100 mg PO BID 5 Days Qty: 10 0RF Continued clonazepam 1 MG tablet 1 mg PO TID buspirone 7.5 MG tablet 7.5 mg PO BID omeprazole 20 mg capsule,delayed release(DR/EC) 20 mg PO DAILY doxepin 150 mg capsule 150 mg PO QHS Referrals / Follow Up: Harish Luis Chi, MD [Primary Care Provider] - Disposition Disposition (needs filled in before D/C Order can be placed): Home, Self Care
--- NOTE | 2024-08-29 12:50 | DS.PCM_ITS ---
Providers Date of Admission: 08/27/24 Date of Discharge: 08/29/24 Primary Care Physician: Dr. Harish Luis MD Consultations 08/28/24 12:58 Consult: Gastroenterology Routine Consulting Provider: [facility] Reason for Consult: dysphagia, eval for EGD EMERGENT Consult: No MD Notified: Yes Date Notified: 08/28/24 Time Notified: 16:06 Method of Notification: Text Reason For Visit: CAP W/ENCEPHALOPATHY Diagnosis Discharge Diagnosis (1) Encephalopathy due to infection: Status: Acute Code(s): G93.49 - Other encephalopathy; B99.9 - Unspecified infectious disease (2) Aspiration pneumonia: Status: Acute Code(s): J69.0 - Pneumonitis due to inhalation of food and vomit Medications at Discharge Home Medications buspirone 7.5 mg tablet 7.5 mg PO BID ANXIETY 02/17/20 clonazepam 1 mg tablet 1 mg PO TID ANXIETY 02/17/20 doxepin 150 mg capsule 150 mg PO QHS ANXIETY 07/30/23 omeprazole 20 mg capsule,delayed release 20 mg PO DAILY GERD 07/30/23 doxycycline hyclate 100 mg tablet 100 mg PO BID 5 days #10 tabs 08/29/24 Hospital Course Operations None Procedures EKG and - (Chest x-ray) Summary of Care Provided Minutes Spent on Discharge: 35 Hospital Course: Patient is a 74-year-old female who presented [facility] ED on 08/27/2024 with fevers, cough and confusion. Hospital course as noted below. Patient discharged home in stable condition on 08/29. 1. Suspected aspiration pneumonia ? Speech therapy followed. Met SIRS criteria on admission with fevers, tachycardia and tachypnea. Did have metabolic encephalopathy as noted below as well suspected secondary to infection. However, did not meet sepsis criteria given normal lactate, no hypotension, no DEE or other endorgan dysfunction. Chest x-ray on admit suspicious for aspiration pneumonia. Known history of oropharyngeal dysphagia as noted below. Treated with IV ceftriaxone and azithromycin while inpatient with good improvement. Speech therapy recommended pur?ed textures with thin liquid diet. GI evaluation was also recommended for consideration of EGD given history of esophageal dysphagia as noted below. However, patient was adamantly opposed to having any procedures done at this time. Patient was stable for discharge home on 08/29 and prescribed 5 more days of antibiotics to complete 7-day course total. 2. Acute metabolic encephalopathy, improved; concern for cognitive impairment ? Alert and oriented x [address] but not time on admit and had poor insight into medical condition. Improved on hospital day 2, alert and oriented x 3 and more calm on exam. However, on day of discharge patient was difficult and refusing to have any further procedures done and stating she wanted to go home. She did have decision-making capacity. However, on further discussion with her she has been more forgetful at home at times and I suspect there may be some degree of underlying cognitive impairment. Unfortunately patient has refused any further testing for cognitive impairment. Recommended to that he monitor her closely especially with feeding and would have her see geriatric medicine for further evaluation if able. 3. Chronic oropharyngeal and esophageal dysphagia ? Speech therapy followed as above. Presented in December 2023 for with concern for aspiration pneumonitis and had barium swallow study done that showed mild to moderate oropharyngeal dysphagia and concern for esophageal dysphagia. Notably had an EGD with Dr. Zarate in 10/2022 that showed a tortuous esophagus, abnormal esophageal motility suspicious for presbyesophagus that was injected with botulinum toxin, and mild Schatzki ring that was dilated. Did not have a repeat EGD done during the recent December admission. As noted above, okay for pur?ed textures with thin liquid diet on discharge and unfortunately patient refused further GI evaluation during this hospitalization; could be considered in the future if patient reconsiders. 4. Concern for malnutrition ? Nutrition followed. BMI 19 on admit with suspected poor p.o. intake in setting of dysphagia as above. Per nutrition, did not meet criteria for malnutrition. However given her low BMI, Ensure plus high-protein was added to meals and recommend high-protein intake on discharge. 5. Anxiety/depression ? Continue home BuSpar, clonazepam 3 times daily as needed and doxepin at night. 6. GERD ? Continue home PPI. Total clinical time spent by myself addressing the patient's medical issues, reviewing all the data, and collaborating with patient's care team: 35 minutes. Physical Exam Const alert and no apparent distress Constitutional Narrative: Elderly female, thin and chronically ill-appearing, alert and oriented x 3 but with some tangential thoughts noted, otherwise answering questions appropriately, sitting back comfortably in bed and in no acute distress. General Appearance: cooperative and comfortable HEENT normocephalic, head/scalp atraumatic, hearing grossly normal bilaterally, nasal mucous membranes and turbinates normal and moist oral mucous membranes Eyes PERRL, EOMs intact bilaterally and conjunctivae normal Neck full ROM Chest inspection of chest normal Resp normal respiratory effort and no use of accessory muscles Resp Narrative: Breathing comfortably on room air at rest. Mildly decreased breath sounds at bilateral lung bases but no wheezing or crackles noted. Improved from admission. Cardio regular rate, regular rhythm, no murmurs and peripheral pulses 2+ throughout GI normal to inspection, nondistended, normoactive bowel sounds, soft to palpation, non-tender and non-distended Back/Spine normal ROM Extremity normal to inspection, full ROM and no pedal edema Skin no rashes or lesions noted Neuro moves all extremities and no focal motor deficits Motor Exam: strength 5/5 throughout Psych mental status grossly normal Weight / BMI Weight Weight: 48.988 kg Body Mass Index (BMI) 19.7 ABG / Lab / Microbiology Data 08/29/24 04:27 08/29/24 04:27 Laboratory: Laboratory Results - last 24 hr 08/29/24 04:27: WBC 4.4, RBC 3.16 L, Hgb 10.0 L, Hct 29.9 L, MCV 94.6, MCH 31.6, MCHC 33.4, RDW Std Deviation 45.9 H, RDW Coeff of Mehnaz 13.2, Plt Count 284, MPV 9.7, Sodium 141, Potassium 3.6, Chloride 109 H, Carbon Dioxide 20.9 L, Anion Gap 11, BUN 9, Creatinine 0.73, Estim Creat Clear Calc 47.71 L, Est GFR (MDRD) Non- Af 86, BUN/Creatinine Ratio 11.8, Glucose 75, Calcium 8.3 Microbiology: Microbiology 08/27/24 16:15 Urine, Catheterized Urine Culture - Preliminary Culture exhibits no growth. 08/27/24 16:15 Urine, Clean Catch Legionella Antigen - Final 08/27/24 16:15 Urine, Clean Catch Streptococcus pneumoniae Antigen (M - Final D/C Instructions DC O2, CPAP, BIPAP Needs Home O2 Discharge instructions: No Meaningful Use Info Meaningful Use Meaningful Use Diagnoses (Choose all that apply): None applicable Ischemic Stroke Statin Dosing Therapy Reference: STATIN DOSE THERAPY REFERENCE: * Patients > 75 years receive moderate or high dose statin therapy. * Patients 75 years or YOUNGER should receive HIGH intensity statin dose unless contraindicated. You will be required to document reason for non-treatment if statin daily dose does not meet guidelines. HIGH DOSE STATIN THERAPY DAILY Atorvastatin > than or = to 40 mg Rosuvastatin > than or = to 20 mg Amlodipine + Atorvastatin > than or = to 2.5/40 mg Ezetimibe + Simvastatin 10/80 mg Simvastatin 80mg Discharge Plan Admission Admit Date/Time: 08/27/24 17:13 Primary Reason for Your Visit: confusion w/ fevers Attending Provider: Christofer Espino Primary Care Provider: Harish Luis Chi Discharge Orders/Prescriptions Prescriptions: New doxycycline hyclate 100 mg tablet 100 mg PO BID 5 Days Qty: 10 0RF Continued clonazepam 1 MG tablet 1 mg PO TID buspirone 7.5 MG tablet 7.5 mg PO BID omeprazole 20 mg capsule,delayed release(DR/EC) 20 mg PO DAILY doxepin 150 mg capsule 150 mg PO QHS Referrals / Follow Up: Harish Luis Chi, MD [Primary Care Provider] - Disposition Disposition (needs filled in before D/C Order can be placed): Home, Self Care Charges/Coding Visit Charges Inpatient E&M: 20294 Disch Hosp >30min
--- NOTE | 2024-08-29 13:14 | CASEMGMT ---
HERON ARREDONDO NOTE: Discharge order is in. Rx for ATB has been sent to [facility]. Pt is refusing EGD. Per Jocelyne, ST, OP ST is recommended. HERON ARREDONDO to room. Pt sitting up in bed, @ bedside and will be taking pt home. Discussed risks of continuing to eat w/dysphagia w/out further evaluation. Pt states she understands and states, I'll be okay. I understand. I'm willing to take the risk. Pt states she would be willing to go to [facility] for PT/OT. Made aware ST is recommending OP ST as well and made aware they do OP ST @ [facility]. She states she is interested in going there for that as well. Given script for OP PT/OT and ST to pt and explained process of use of script to pt and . They voice understanding. states is familiar w/how to contact them and he can take pt to appts, stating, I'll take her wherever she wants to go. He states they can stop and clam picker Rx @ [facility] today. He and pt deny having further discharge needs or concerns. Made aware to f/u with PCP. Lamberto REHMANN RN CM
== END 2024-08-29 13:27 | disposition home or self-care (01) | DRG 177 ==
LOC: ED 17:24 → PCU 20:19
PROVIDERS: Admitting Provider Hospitalist; Emergency Provider Emergency Medicine; PCP Family Medicine Geriatric Medicine; Visit Provider Hospitalist
DX: J69.0 Pneumonitis due to inhalation of food and vomit (principal); G93.41 Metabolic encephalopathy; E46 Unspecified protein-calorie malnutrition; G93.49 Other encephalopathy; I10 Essential (primary) hypertension; F32.A Depression, unspecified; J18.9 Pneumonia, unspecified organism; E78.2 Mixed hyperlipidemia; K21.9 Gastro-esophageal reflux disease without esophagitis; Z79.01 Long term (current) use of 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s; Z86.16 Personal history of COVID-19; Z87.891 Personal history of nicotine dependence; Z79.2 Long term (current) use of antibiotics
CPT/HCPCS: 36415; 71045; 80048; 80053; 81001; 83605; 83735; 84100; 85025; 85027; 85610; 85730; 87040; 87086; 87088; 87449; 92610; 93005; 97162; 97166; 99285; P9612; A4216; J0696

== ENCOUNTER 2024-09-21 17:59 | Observation (INO) | payer MEDICARE, SELFPAY ==
[2024-09-21] VITALS (7 sets, daily range): BP systolic 140–162; BP diastolic 74–91; PULSE 81–94; RESP 18–24; TEMP 36.8–37.8; O2SAT 96–97; BMI 20.4; BMI 18.7
--- NOTE | 2024-09-21 18:37 | EKG12_ITS ---
Test Reason : WEAKNESS Blood Pressure : */* mmHG Vent. Rate : 93 BPM Atrial Rate : 93 BPM P-R Int : 182 ms QRS Dur : 84 ms QT Int : 358 ms P-R-T Axes : 69 32 70 degrees QTcB Int : 445 ms Normal sinus rhythm Normal ECG Confirmed by KAITLIN HUFF MD ([id number]), health editor KRISTA KINNEY ([id number]) on 09/23/2024 8:18:33 AM Referred By: AWA Confirmed By: KAITLIN HUFF MD
--- NOTE | 2024-09-21 18:37 | CT_ITS ---
PROCEDURE: BRAIN/HEAD WITHOUT CONTRAST 09/21/2024 REASON FOR EXAM: FALLS AND CONFUSION TECHNIQUE: BRAIN/HEAD WITHOUT CONTRAST Coronal and Sagittal reconstruction series were provided. One or more dose reduction techniques were used (e.g., Automated exposure control, adjustment of the mA and/or kV according to patient size, use of iterative reconstruction technique. RADIATION DOSE SUMMARY: CTDlvol: 44.99 mGy DLP: 812.98 mGycm COMPARISON: 07/15/2024 FINDINGS: No intracranial mass or hemorrhage. No edema. No hydrocephalus. Normal moy- white differentiation. CT/Brain/Head without Contrast IMPRESSION: No acute abnormality Reading [facility]
--- NOTE | 2024-09-21 18:39 | EX.ED.DYSGE1 ---
HPI History of Present Illness Chief Complaint: Weakness Informant: patient and spouse/S.O. Onset/Context/Timing Onset: Days Context: Gradual Onset Timing: Continuous Current Severity: Moderate Maximum Severity: Moderate Narrative Narrative: 74-year-old female history of prior aspiration pneumonia. states she has been progressively more weak the last several days. She fell 5 times yesterday and 3 times today. She has had decreased oral intake. She denies any headache or head trauma. Denies any dysuria. Denies any chest or abdominal pain. She did not realize she had a low-grade temperature so she came in here today. in the hallway discussed with me is concerned she is developing dementia. He states she has been more confused lately. She cannot use the microwave. He does not allow her to drive anymore. She has trouble with her computer at home. They deny any recent vomiting or diarrhea. No dysuria. Prior similar symptoms: Yes Recent Illness/Hospitalization: Yes PFSH PFS Medical History Aspiration pneumonia Hypoxia Fracture of humeral head Falls Pulmonary emboli Hypoxia Closed head injury Anxiety and depression Cervical stenosis of spine Vitamin D deficiency Irritable bowel syndrome without diarrhea Stenosis, cervical spine Chronic cough Allergic rhinitis Insomnia HLD (hyperlipidemia) Movement disorder Gastroparesis Dysphagia Pain from implanted hardware Wears hearing aid Wears dentures Wears glasses Post-menopausal Uses wheelchair Walker as ambulation aid Ambulates with cane Arthritis High cholesterol Back pain Migraine headache Gastric reflux Former smoker Shortness of breath on exertion History of stress test Hypertension COVID-19 Scoliosis of lumbar spine Segmental and somatic dysfunction of pelvic region Segmental dysfunction of thoracic region Segmental and somatic dysfunction of lumbar region Carpal tunnel syndrome on both sides Chronic lower back pain Home Medications Medication Instructions Recorded Last Taken Type buspirone 7.5 mg tablet 7.5 mg PO BID ANXIETY 02/17/20 04/26/22 History clonazepam 1 mg tablet 1 mg PO TID ANXIETY 02/17/20 04/26/22 History doxepin 150 mg capsule 150 mg PO QHS ANXIETY 07/30/23 Unknown History omeprazole 20 mg capsule,delayed 20 mg PO DAILY GERD 07/30/23 Unknown History release Allergy/AdvReac Type Severity Reaction Status Date / Time Penicillins Allergy Rash Verified 09/21/24 18:05 Family History Mother Hypertension CVA (cerebral vascular accident) Heart disease Cerebral hemorrhage Father Cancer Hx stomach cancer and leukemia. Surgical History History of cardiac catheterization Hx of dilation and curettage History of 2 sections Hx of surgical procedure History of lumbar laminectomy Social History household members: spouse housing: house number of children: 2 Smoking Status: Current every day smoker tobacco type: e-cigarettes alcohol intake: never substance use type: does not use what type of physical activity do you participate in: none additional social history: Currently ambulating with a cane ROS ROS ED ROS Narrative Generalized weakness. Falls. Intermittent confusion. Constitutional Constitutional ED: Reports fever(s) Eyes Eyes: Denies blurry vision ENT ENT ED: Denies ear pain Cardiovascular Cardiovascular: Denies chest pain Respiratory/Chest Respiratory/Chest: Denies cough or dyspnea Gastrointestinal Gastrointestinal: Denies abdominal pain, constipation, diarrhea, melena, nausea or vomiting Genitourinary Genitourinary ED: Denies dysuria or hematuria Musculoskeletal Musculoskeletal: Denies arthralgias or back pain Integumentary Denies abscess Neurologic Neurologic: Denies headache(s) Psychiatric Psychiatric: Denies anxiety Endocrine Endocrinology: Denies cold intolerance Hematologic/Lymphatic Hematologic/Lymphatic: Reports none Allergic/Immunologic Allergic/Immunologic ED: Denies mouth swelling, tongue swelling or urticaria EXAM Physical Exam Narrative Exam Narrative: 74-year-old female vital signs stable she does have a low-grade temperature of 100.0. She does not look septic or toxic. at bedside. H EENT exam pupils round reactive light. Moist mucous membranes. No signs of trauma to her face or scalp. Nontender. Neck and C-spine nontender. Back and spine nontender. Lungs clear to auscultation. Heart regular rhythm rate about 90 no murmur. Chest wall ribs nontender. Abdomen soft nontender. Moving all 4 extremities. Normal domestic technician strength. Normal dorsi plantarflexion. She has chronic decreased range of motion of the right shoulder from a prior fracture and rotator cuff tear. That is chronic and not new. She has normal domestic technician strength. She has normal dorsi plantarflexion. No deformity to the extremities. Neurologically she is awake. She is alert. She thought it was August and just her in September. She knew the year was 2024. She knew she was in the hospital. Const Vital Signs: 09/21/24 18:01 09/21/24 18:05 09/21/24 19:34 Temperature 100.0 F H Temperature Source Oral Pulse Rate 94 89 Respiratory Rate 18 18 Respiratory Effort Normal Respiratory Pattern Normal Blood Pressure 153/85 H 151/91 H Blood Pressure Mean 107 111 Pulse Ox 96 97 Oxygen Delivery Method Room Air 09/21/24 19:38 09/21/24 19:39 Temperature 99.3 F H 99.3 F H Temperature Source Oral Pulse Rate 86 86 Respiratory Rate 22 H 24 H Respiratory Effort Respiratory Pattern Blood Pressure 140/74 H 140/74 H Blood Pressure Mean 96 96 Pulse Ox 97 97 Oxygen Delivery Method Room Air Positive well nourished and well developed; Negative for obese, cachectic, contractures or unkempt General Appearance ED: well developed and NAD; Negative for unkempt, cachectic, contractures, cyanotic, diaphoretic or pallor Nutritional Appearance: Negative for cachectic or obese HEENT Reports moist mucous membranes Negative for trauma or tenderness Eyes PERRL and EOMs intact bilaterally General Eye ED: Negative for pale conjunctiva or scleral icterus Neck no lymphadenopathy, supple and no JVD Chest Wall inspection of chest normal and palpation of chest normal Resp normal respiratory effort and clear to auscultation bilaterally Effort and Inspection: Negative for retractions Auscultation: Negative for rales, rhonchi, wheezes or diminished lung sounds Cardio regular rate, regular rhythm, S1 normal heart sound, S2 normal heart sound and no murmurs GI normal to inspection, nondistended, normoactive bowel sounds, non-tender, non-distended and no masses Auscultation: normoactive bowel sounds Palpation: soft; Negative for tender or guarding Back/Spine no CVA tenderness General Back: Negative for CVA tenderness Cervical Spine: Negative for cervical spine tenderness Thoracic Spine / Upper Back: Negative for thoracic spinal tenderness or paraspinal muscle tenderness Lumbar Spine / Lower Back: Negative for lumbar spinal tenderness Extremity normal to inspection General Extremety ED: Negative for edema or tenderness General Extremity: Negative for edema Neuro oriented x3 and CN's II-XII intact bilaterally Sensorium / Orientation: alert and orientation impaired; Negative for lethargic or stuporous Motor Exam: strength 5/5 throughout Psych mental status grossly normal Appearance: Negative for unkempt Mood & Affect: Negative for anxious or tearful Skin no rashes or lesions noted and no wounds General Skin Exam: Negative for jaundice or pallor Lesions: No lesion noted Rashes: No rashes noted Trauma: Negative for abrasion Wounds: Negative for wounds noted MDM MDM MDM Narrative Medical decision making narrative: 74-year-old female 8 falls in the last 2 days. Generalized weakness and low-grade fever. Concern for aspiration pneumonia versus UTI versus other etiologies for the low-grade fever. Most likely will be admitted. CAT scan of her head due to recent confusion and multiple falls but there is no outward signs of head trauma. IV fluids and Tylenol. Repeat exam patient is doing well at 8:02 PM. Due to multiple falls and generalized weakness and a low-grade fever patient will be admitted for further evaluation. I will speak to the hospitalist. Cannot rule out aspiration pneumonia. History & Record Review Discussion w/independent historian: Patient and Family Additional record(s) reviewed:: Prior inpatient record, Prior outpatient record, Prior ED visit and Prior labs Lab Data Attestation: I reviewed the patient's lab results. Lab results narrative: CBC shows white count 8.0. H&H 11.4 and 34.9. Platelets 339. Electrolytes show sodium 140. Gap 10. Normal BUN of 8 creatinine 0.97. Glucose 118. Liver enzymes unremarkable. Alk phos 113. Lactic acid 1.1. UA shows no nitrates. 0 red cells. 0 white cells. 2+ bacteria. COVID, flu and RSV are all negative. Labs: Laboratory Results - last 24 hr 09/21/24 09/21/24 09/21/24 18:15 18:36 18:50 WBC 8.0 RBC 3.64 L Hgb 11.4 L Hct 34.9 L MCV 95.9 MCH 31.3 MCHC 32.7 RDW Std Deviation 48.4 H RDW Coeff of Mehnaz 13.8 Plt Count 339 MPV 10.0 Immature Gran % (Auto) 0.200 Neut % (Auto) 79.3 H Lymph % (Auto) 11.2 L [place] % (Auto) 8.7 Eos % (Auto) 0.2 Baso % (Auto) 0.4 Absolute Neuts (auto) 6.4 Absolute Lymphs (auto) 0.90 Nucleated RBC % 0 Sodium 140 Potassium 3.8 Chloride 105 Carbon Dioxide 24.7 Anion Gap 10 BUN 8 Creatinine 0.97 Estim Creat Clear Calc 40.24 L Est GFR (MDRD) Non-Af 61 BUN/Creatinine Ratio 8.7 L Glucose 118 H Lactic Acid Calcium 9.0 Total Bilirubin 0.47 AST 30 ALT 11 Alkaline Phosphatase 113 H Total Protein 6.4 Albumin 3.3 L Globulin 3.1 Albumin/Globulin Ratio 1.1 Urine Color Yellow Urine Clarity Clear Urine pH 6.0 Ur Specific [place] 1.015 Urine Protein 15 H Urine Glucose (UA) Normal Urine Ketones Negative Urine Occult Blood Negative Urine Nitrite Negative Urine Bilirubin Negative Urine Urobilinogen Normal Ur Leukocyte Esterase 100 H Urine RBC 0 SEEN Urine WBC 0-5 SEEN Ur Squamous Epith Cells 0 SEEN Urine Bacteria 2+ Urine Mucus 0 SEEN Urine Yeast 1+ 09/21/24 18:55 WBC RBC Hgb Hct MCV MCH MCHC RDW Std Deviation RDW Coeff of Mehnaz Plt Count MPV Immature Gran % (Auto) Neut % (Auto) Lymph % (Auto) [place] % (Auto) Eos % (Auto) Baso % (Auto) Absolute Neuts (auto) Absolute Lymphs (auto) Nucleated RBC % Sodium Potassium Chloride Carbon Dioxide Anion Gap BUN Creatinine Estim Creat Clear Calc Est GFR (MDRD) Non-Af BUN/Creatinine Ratio Glucose Lactic Acid 1.1 Calcium Total Bilirubin AST ALT Alkaline Phosphatase Total Protein Albumin Globulin Albumin/Globulin Ratio Urine Color Urine Clarity Urine pH Ur Specific [place] Urine Protein Urine Glucose (UA) Urine Ketones Urine Occult Blood Urine Nitrite Urine Bilirubin Urine Urobilinogen Ur Leukocyte Esterase Urine RBC Urine WBC Ur Squamous Epith Cells Urine Bacteria Urine Mucus Urine Yeast Radiography Chest X-Ray - ED: 2 View, Read by ED Physician, Lungs, Mediastinum, Bony Structures and Chronic Changes Diagnostic Testing: Clinical Impression(s) from Imaging Studies Brain CT 09/21/24 18:37 IMPRESSION: No acute abnormality Reading [facility] Chest X-Ray 09/21/24 19:18 IMPRESSION: Improvement in bilateral hilar and basilar infiltrates Reading Location[facility] Chest x-ray, 2 views, AP and lateral, interpreted by myself and radiologist shows improvement but cannot rule out aspiration in the bases. There is atelectasis on the left. Normal cardiac silhouette. No obvious bacterial pneumonia. Rhythm Strip Rhythm Strip: Sinus Rhythm Rate: 93 Ectopy: None EKG Initial EKG: Attestation: I personally reviewed and interpreted this EKG as follows: Interpretation: Sinus Rhythm and No Acute Injury Pattern Comments: Normal sinus rhythm rate of 93 no acute signs of NH nor ischemia nor dysrhythmia. Discharge Plan Triage Chief Complaint: Weakness ED Provider: Guilherme Collins Dx/Rx/DC Orders Clinical Impression: Falls, Generalized weakness, History of aspiration pneumonia, Low grade fever, Acute confusion, Failure to thrive Prescriptions: No Action clonazepam 1 MG tablet 1 mg PO TID buspirone 7.5 MG tablet 7.5 mg PO BID omeprazole 20 mg capsule,delayed release(DR/EC) 20 mg PO DAILY doxepin 150 mg capsule 150 mg PO QHS Primary Care Provider: Harish Luis Chi Referrals: Harish Luis Chi, MD [Primary Care Provider] - Print Language: Slovak Disposition Disposition: Acute Care Hospital [facility]
[2024-09-21 18:54] LABS: Hematocrit 34.9 % (37-47); Hemoglobin 11.4 g/dL (12.0-15.0); Immature Granulocytes Count 0.020 X10^3/uL (0.0-0.0); Mean Corp Hgb Conc 32.7 g/dL (32-36); Mean Corpuscular Volume 95.9 fL (81-99); Mean Platelet Vol. 10.0 fl (6.2-12.0); NRBC Flagged by Analyzer 0 % (0-5); Platelet Count 339 K/mm3 (150-450); RBC Distribution Width CV 13.8 % (11.6-14.6); RBC Distribution Width SD 48.4 fl (35.1-43.9); Red Blood Count 3.64 M/mm3 (4.2-5.4); White Blood Count 8.0 K/mm3 (4.4-11.0)
[2024-09-21] MEDS: 0.9% Normal Saline (1000mL) 1,000 ML 1000 ML IV (18:56)
[2024-09-21 19:03] LABS: Mucous, Urine 0 SEEN /hpf (<or=2+); Red Blood Cells-Urine 0 SEEN /hpf (0-5); Squamous Epithelial Cells - UA 0 SEEN /hpf (5-10)
[2024-09-21 19:05] LABS: Color, Urine Yellow (Yellow); Glucose, Dipstick Normal (Normal); Ketone-Dipstick Negative (Negative); Leukocyte Esterase-Dipstick 100 /ul (Negative); Nitrite-Dipstick Negative (Negative); Occult Blood-Urine Negative /ul (Negative); Protein-Dipstick 15 mg/dl (Negative); Specific Gravity, Urine 1.015 (1.002-1.030); Urine Bilirubin Dipstick Negative (Negative)
[2024-09-21 19:18] LABS: Yeast-Urine 1+ /hpf (None Seen)
--- NOTE | 2024-09-21 19:18 | RAD_ITS ---
PROCEDURE: CHEST PA AND LATERAL 09/21/2024 REASON FOR EXAM: FEVER AND WEAKNESS TECHNIQUE: CHEST PA AND LATERAL COMPARISON: August 27, 2024 chest radiograph FINDINGS: Hardware: EKG leads wires. Spinal canal pain electrodes in the posterior midline Heart: Normal size. Mediastinum: Prominent renea suggest residual from previous lymphadenopathy Lungs: Platelike atelectasis versus chronic fibrosis in the left base has similar appearance compared to August 27 Bilateral hilar and basilar infiltrates appear improved. Bones: No acute process. Slight improvement in bibasilar and bilateral hilar infiltrates since the prior CT exam RAD/Chest PA and Lateral IMPRESSION: Improvement in bilateral hilar and basilar infiltrates Reading Location[facility]
[2024-09-21 19:44] LABS: AST(SGOT) 30 U/L (<=31); Alanine Aminotransfer ALT/SGPT 11 U/L (<=34); Albumin, Serum 3.3 g/dL (3.4-4.8); Alkaline Phosphatase 113 U/L (35-104); Anion Gap 10 (5-15); BUN 8 mg/dL (4-19); BUN/Creat Ratio 8.7 RATIO (10-20); Calcium,Total 9.0 mg/dL (7.6-11.0); Carbon Dioxide 24.7 mmol/L (21.0-32.0); Chloride 105 mmol/L (98-108); Estimated Creatinine Clearance 40.24 ml/min (50-250); Globulin 3.1 g/dL (2.2-4.2); Glucose 118 mg/dL (70-99); Potassium 3.8 mmol/L (3.3-5.1)
--- NOTE | 2024-09-21 20:08 | PCM.HP.STD ---
[facility] - General General Date of Admission: 09/21/24 Date of Service: 09/21/24 Chief Complaint: Frequent Falls and Confusion. HPI Narrative CAROL ZARAGOZA, is a 74 F with a past medical history of depression with anxiety; on buspirone twice daily, doxepin nightly and clonazepam 3 times daily, IBS, GERD; on omeprazole, chronic oropharyngeal dysphagia (12/2023), former tobacco abuse (quit ~2015), history of Right rotator cuff tear, history of Right shoulder fracture; with subsequent limited range of motion, OA; with history of cervical stenosis lung with scoliosis of the lumbar spine s/p lumbar laminectomy causing chronic low back pain with patient ambulating with cane at baseline and recent admission here from August 27, 2024 to August 29, 2024 for treatment of aspiration pneumonia complicated by acute metabolic encephalopathy and suspected malnutrition in the setting of chronic oropharyngeal dysphagia who re-presents to [facility] with patient's noting increasingly frequent falls and confusion. The patient's informed the ER physician that she has been progressively more weak and confused over the last several days culminating in her falling 5 times yesterday and 3 times today so he finally decided to bring her back in for further evaluation and treatment. He denied obvious head trauma or LOC with her fall. He also noted decreased oral intake and he is very concerned she is developing a rapidly progressing dementia. He states she cannot use the microwave in addition to having difficulty using her computer and he does not allow her to drive anymore due to her declining cognitive abilities but unfortunately patient is still managing her own medications. In the ER she was noted to have a low-grade fever of 100 °[address] scan of the chest without contrast revealing residual consolidation airspace disease in the Left lower lobe and Right lower lobe and to a lesser degree consistent with history of Aspiration Pneumonia in addition to coronary artery calcification, small hiatal hernia and thoracolumbar spine area anterior wedge compression fracture complicated by clinical evidence of Toxic Metabolic Encephalopathy with UDS positive for benzodiazepines with a head CT without contrast that revealed no acute abnormality. She was admitted to the PCU for ongoing care for status expected to extend beyond 2 midnights. [facility] Medical History Aspiration pneumonia Hypoxia Fracture of humeral head Falls Pulmonary emboli Hypoxia Closed head injury Anxiety and depression Cervical stenosis of spine Vitamin D deficiency Irritable bowel syndrome without diarrhea Stenosis, cervical spine Chronic cough Allergic rhinitis Insomnia HLD (hyperlipidemia) Movement disorder Gastroparesis Dysphagia Pain from implanted hardware Wears hearing aid Wears dentures Wears glasses Post-menopausal Uses wheelchair Walker as ambulation aid Ambulates with cane Arthritis High cholesterol Back pain Migraine headache Gastric reflux Former smoker Shortness of breath on exertion History of stress test Hypertension COVID-19 Scoliosis of lumbar spine Segmental and somatic dysfunction of pelvic region Segmental dysfunction of thoracic region Segmental and somatic dysfunction of lumbar region Carpal tunnel syndrome on both sides Chronic lower back pain Home Medications Medication Instructions Recorded Last Taken Type buspirone 7.5 mg tablet 7.5 mg PO BID ANXIETY 02/17/20 09/20/24 22:00 History 7.5 mg clonazepam 1 mg tablet 1 mg PO TID ANXIETY 02/17/20 09/20/24 History doxepin 150 mg capsule 300 mg PO QHS ANXIETY 07/30/23 09/20/24 22:00 History 300 mg omeprazole 40 mg capsule,delayed 40 mg PO DAILY PRN 09/21/24 09/20/24 08:00 History release 40 mg Allergy/AdvReac Type Severity Reaction Status Date / Time Penicillins Allergy Rash Verified 09/21/24 18:05 Family History Mother Hypertension CVA (cerebral vascular accident) Heart disease Cerebral hemorrhage Father Cancer Hx stomach cancer and leukemia. Surgical History History of cardiac catheterization Hx of dilation and curettage History of 2 sections Hx of surgical procedure History of lumbar laminectomy Social History household members: spouse housing: house number of children: 2 Smoking Status: Current every day smoker tobacco type: e-cigarettes alcohol intake: never substance use type: does not use what type of physical activity do you participate in: none additional social history: Currently ambulating with a cane ROS ROS Narrative Full review of systems was limited due to patient's confusion: Constitutional: Patient admits to generalized weakness and frequent falls with intermittent confusion but she denies fever or chills as per HPI. Eyes: Patient denies changes in vision or discharge from eyes. ENT: Patient denies runny nose, sore throat or ear pain. Resp: Patient denies shortness of breath or cough. CV: Patient denies chest pain, palpitations, heart racing or lower extremity edema. GI: Patient denies abdominal pain, nausea, vomiting, diarrhea or constipation. : Patient denies dysuria or hematuria. MSK: Patient admits to chronic back pain made worse after recent falls with worsening generalized weakness and ambulatory dysfunction as per HPI. Skin: Patient denies rash, abscess, wounds or jaundice. Psych: Patient admits to depression and anxiety but she denies SI or HI. Neuro: Patient admits to unsteady gait with frequent falls as per HPI but she denies paresthesias or focal neurologic deficits. Allergy: Patient denies lip swelling, tongue swelling or urticaria. Hematology: Patient denies easy bleeding or easy bruisability. Endocrinology: Patient denies polyuria, polydipsia, polyphagia or heat/cold intolerance. 14 point ROS otherwise negative except for positives noted above in HPI. Vital Signs Vital Signs Vital Signs: 09/21/24 18:01 09/21/24 18:05 09/21/24 19:34 Temperature 100.0 F H Temperature Source Oral Pulse Rate 94 89 Respiratory Rate 18 18 Respiratory Effort Normal Respiratory Pattern Normal Blood Pressure 153/85 H 151/91 H Blood Pressure Mean 107 111 Pulse Ox 96 97 Oxygen Delivery Method Room Air 09/21/24 19:38 09/21/24 19:39 Temperature 99.3 F H 99.3 F H Temperature Source Oral Pulse Rate 86 86 Respiratory Rate 22 H 24 H Respiratory Effort Respiratory Pattern Blood Pressure 140/74 H 140/74 H Blood Pressure Mean 96 96 Pulse Ox 97 97 Oxygen Delivery Method Room Air Weight Weight: 111 lb 8 oz Body Mass Index (BMI) 20.4 Physical Exam Const alert, no apparent distress and average body habitus Constitutional Narrative: Confused but nontoxic in appearance. General Appearance: cooperative Orientation / Consciousness: confused HEENT normocephalic, head/scalp atraumatic and hearing grossly normal bilaterally HEENT Narrative: Mucous membranes dry. Eyes PERRL, EOMs intact bilaterally and conjunctivae normal Neck no lymphadenopathy, supple and no JVD Resp Resp Narrative: Diminished breath sounds over Left lung base greater than Right. Cardio regular rate and regular rhythm GI normal to inspection, nondistended, normoactive bowel sounds, soft to palpation, non-tender and non-distended Extremity normal to inspection, full ROM and no clubbing, cyanosis or edema Neuro CN's II-XII intact bilaterally, moves all extremities and no focal motor deficits Sensorium / Orientation: awake, alert, oriented to person and oriented to time Speech: speech normal Psych affect normal Results Medical Records Data Attestation: I reviewed the patient's medical records Lab / Micro Data Attestation: I reviewed the patient's lab results. 09/21/24 18:36 09/21/24 18:15 Labs: Laboratory Results - last 24 hr 09/21/24 18:15: Sodium 140, Potassium 3.8, Chloride 105, Carbon Dioxide 24.7, Anion Gap 10, BUN 8, Creatinine 0.97, Estim Creat Clear Calc 40.24 L, Est GFR (MDRD) Non-Af 61, BUN/Creatinine Ratio 8.7 L, Glucose 118 H, Calcium 9.0, Total Bilirubin 0.47, AST 30, ALT 11, Alkaline Phosphatase 113 H, Total Protein 6.4, Albumin 3.3 L, Globulin 3.1, Albumin/Globulin Ratio 1.1 09/21/24 18:36: WBC 8.0, RBC 3.64 L, Hgb 11.4 L, Hct 34.9 L, MCV 95.9, MCH 31.3, MCHC 32.7, RDW Std Deviation 48.4 H, RDW Coeff of Mehnaz 13.8, Plt Count 339, MPV 10.0, Immature Gran % (Auto) 0.200, Neut % (Auto) 79.3 H, Lymph % (Auto) 11.2 L, [place] % (Auto) 8.7, Eos % (Auto) 0.2, Baso % (Auto) 0.4, Absolute Neuts (auto) 6.4, Absolute Lymphs (auto) 0.90, Nucleated RBC % 0 09/21/24 18:50: Urine Color Yellow, Urine Clarity Clear, Urine pH 6.0, Ur Specific [place] 1.015, Urine Protein 15 H, Urine Glucose (UA) Normal, Urine Ketones Negative, Urine Occult Blood Negative, Urine Nitrite Negative, Urine Bilirubin Negative, Urine Urobilinogen Normal, Ur Leukocyte Esterase 100 H, Urine RBC 0 SEEN, Urine WBC 0-5 SEEN, Ur Squamous Epith Cells 0 SEEN, Urine Bacteria 2+, Urine Mucus 0 SEEN, Urine Yeast 1+ 09/21/24 18:55: Lactic Acid 1.1 Micro: Microbiology 09/21/24 18:52 Mucosa - Nose SARS-CoV-2, Influenza & RSV (PCR) - Final Rhythm Strip Rhythm Strip: Sinus Rhythm Rate: 93 Ectopy: None Imaging Radiology Impression Brain CT 09/21/24 18:37 IMPRESSION: No acute abnormality Reading [facility] Chest X-Ray 09/21/24 19:18 IMPRESSION: Improvement in bilateral hilar and basilar infiltrates Reading Location: [facility] Imaging Services [address] [place] [id number] Chest without Contrast MR#: [id number] Acct: [id number] Name: CAROL ZARAGOZA Rep #: [id number] : [id number] F 74 From: Claude Moralez DO PCP: Dr. Harish Luis MD Status: ADM BRITTNEE Study: Chest without Contrast Date of Exam: 09/21/24 Exam# [id number] Ordering Dr: Ricardo Justice DO PROCEDURE: CHEST WITHOUT CONTRAST 09/21/2024 REASON FOR EXAM: RECENT ASPIRATION PNEUMONIA. TECHNIQUE: Chest CT without contrast. Coronal and Sagittal reconstruction series were provided. One or more dose reduction techniques were used (e.g., Automated exposure control, adjustment of the mA and/or kV according to patient size, use of iterative reconstruction technique RADIATION DOSE SUMMARY: CTDlvol: 6.08 mGy DLP: 217.14 mGycm COMPARISON: No prior chest CTs FINDINGS: Hardware: Lower thoracic spine pain stimulating electrodes. Lymph nodes: Negative Heart and Vasculature: Heart size is normal. No aortic aneurysm Coronary Artery Calcifications: Metallic stents Lungs and Airways: Patchy consolidating airspace disease independent lung, especially left lower lobe Pleura: No effusions. Upper Abdomen: Small hiatal hernia. Bones: Osteoporotic anterior wedge compression deformity in the lower thoracolumbar spine CT/Chest without Contrast IMPRESSION: Residual consolidating airspace disease in the left lower lobe right lower lobe to lesser degree consistent with history of aspiration pneumonia. Coronary artery calcification (CAC) is difficult to visualize due to presence of metallic streak artifact suspected metallic heart stents. Correlate with cardiac history. Small hiatal hernia Thoraco lumbar spine area anterior wedge compression fracture Reading Location[facility] CC: Dr. Ricardo Justice DO; Dr. 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 CT scan of the chest without contrast revealing residual consolidation airspace disease in the Left lower lobe and Right lower lobe and to a lesser degree consistent with history of Aspiration Pneumonia - Admit to PCU. Start empiric antibiotic treatment with IV levofloxacin and IV metronidazole in light of listed allergy to PCN. Give acetaminophen as needed for pain or fever. 2. Fever of 100 °F present on admission suspected to be due to #1 - We will give acetaminophen prn as outlined in #1. 3. Toxic Metabolic Encephalopathy suspected to be due to a combination of chronic benzodiazepine use in addition to #1 & #2 - Hold benzodiazepines in an effort to allow sensorium to clear. Check TSH, B12, Folate, UDS and MAY to evaluate for other potentially reversible causes of confusion. Check MRI of brain without contrast with rapid cognitive decline and 's concern for possible rapid-onset dementia. 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 4. Generalized Weakness with Frequent Falls attributable to #1 - #3 - PT/OT and Case Management to consult and treat on rounds in the AM for further recommendations with help appreciated in advance. 5. Chronic oropharyngeal dysphagia (12/2023) adding to the medical complexity of #1 - #4 - Patient is suspected to be having recurrent aspiration events due to this issue that has likely progressed since her last study. We will consult speech therapy to perform new swallow evaluation to confirm suspicion with help appreciated in advance. 6. Recent admission here from August 27, 2024 to August 29, 2024 for treatment of aspiration pneumonia complicated by acute metabolic encephalopathy and suspected malnutrition in the setting of chronic oropharyngeal dysphagia - Noted with similar pattern of admission as on this occasion. 7. Depression with anxiety; on buspirone twice daily, doxepin nightly and clonazepam 3 times daily - Maintain buspirone and doxepin as previous but hold clonazepam as outlined in #3. 8. IBS - Stable. 9. GERD; on omeprazole - Continue PPI. 10. Former tobacco abuse (quit ~2015) - Noted. 11. History of Right rotator cuff tear - Noted. 12. History of Right shoulder fracture; with subsequent limited range of motion - Stable. 13. OA; with history of cervical stenosis lung with scoliosis of the lumbar spine s/p lumbar laminectomy causing chronic low back pain - Noted. We will give acetaminophen prn as outlined in #1. 14. DVT prophylaxis - Enoxaparin 40 mg sq daily plus SCD's. Total time: Approximately (but not less than) 75 minutes.
--- OUTSIDE RECORDS SUMMARY | 2024-09-21 20:25 | XMS RPT_ITS | CCD ---
Author Organization [facility] CliniSyhi Care Team Providers Care Mapping Supervisor Name Role Phone Dr. Harish Luis Chi Primary Care Provider Dr. Jose Renee Attending Provider Dr. Demond Manley Referring Provider Dr. Harish Luis Chi Primary Care Provider Dr. Dimitry Rosales Emergency Provider Dr. Rafita iSddiqui Admit Provider Dr. Rafita Siddiqui Attending Provider [...] Harish Luis Chi Primary Care Provider Dr. Armando Miranda Emergency Provider Dr. Helena Ann Admit Provider Dr. Helena Ann Attending Provider Dr. Helena Ann Other Provider Dr. Jesse Camejo Attending Provider Dr. Jesse Camejo Other Provider Dr. Jesse Camejo Referring Provider Tessa, Dr. Levi Attending Provider Dr. Rivka Lombardi Attending Provider Toby GUIDO, Dr. Harish Flores Primary Care Provider [phone] Toby GUIDO, Dr. Harish Flores Attending Provider Toby GUIDO, Dr. Harish Flores Referring Provider [phone] Irving White DO Emergency Provider [phone] Toby GUIDO, Dr. Harish Flores Primary Care Provider [phone] Dr. Irving White DO Attending Provider [phone] Toby GUIDO, Dr. Harish Flores Attending Provider [phone] Toby GUIDO, Dr. Harish Flores Referring Provider [phone] Elio GUIDO, Dr. Ngo Emergency Provider [phone] Christofer Espino DO Admit Provider Dr. Christofer Espino DO Attending Provider Dr. Christofer Espino DO Other Provider [phone] Toby, Harish Chi Primary Care Unavailable Kalpesh, Zia Consulting Unavailable Kalpesh, Zia Admitting Unavailable Xu Macias Referring Unavailable Kalpesh, Iza Attending Unavailable Rafita Siddiqui Attending Unavailable Rafita Siddiqui Consulting Unavailable Daniel Lee Attending Unavailable Toby, Harish Chi Primary Care Unavailable Toby, Harish Chi Referring Unavailable Christofer Espino Attending Unavailable Christofer Espino Consulting Unavailable Toby, Harish Chi Primary Care Unavailable Christofer Espino Admitting Unavailable Daniel Lee Attending Unavailable Toby, Harish Chi Primary Care Unavailable Toby, Harish Chi Referring Unavailable Daniel Lee Attending Unavailable Toby, Harish Chi Primary Care Unavailable Toby, Harish Chi Referring Unavailable Daniel Lee Attending Unavailable Toby, Harish Chi Primary Care Unavailable Toby, Harish Chi Referring Unavailable Daniel Lee Attending Unavailable Toby, Harish Chi Primary Care Unavailable Toby, Harish Chi Referring Unavailable Toby, Harish Chi Attending Unavailable Toby, Harish Chi Primary Care Unavailable Toby, Harish Chi Referring Unavailable Toby, Harish Chi Attending Unavailable Toby, Harish Chi Primary Care Unavailable Toby, Harish Chi Attending Unavailable Toby, Harish Chi Primary Care Unavailable Toby, Harish Chi Referring Unavailable Toby, Harish Chi Primary Care Unavailable Zia Posey Admitting Unavailable Xu Macias Referring Unavailable Rafita Siddiqui Attending Unavailable Kalpesh, Zia Consulting Unavailable Christofer Espino Attending Unavailable Toby, Harish Chi Primary Care Unavailable Christofer Espino Admitting Unavailable Toby, Harish Chi Primary Care Unavailable Toby, Harish Chi Referring Unavailable Toby, Harish Chi Attending Unavailable Daniel Lee Referring Unavailable Daniel Lee Attending Unavailable Toby, Harish Chi Primary Care Unavailable Jesse Tovar Attending Unavailable Toby, Harish Chi Primary Care Unavailable Jesse Tovar Referring Unavailable Irving White Attending Unavailable Toby, Harish Chi Primary Care Unavailable Allergies Allergy Classification Reported Allergen(s) Allergy Type Date of Onset Reaction(s) Facility (20 sources) Penicillins; Translations: [Penicillins] Allergy to substance 0 Rash [facility] (13 sources) HY[facility]one Drug [facility] 3 [facility] Medic[facility] Current Medications Medication Drug Class(es) Dates Sig (Normalized) Sig (Original) busPIRone hydrochloride 7.5 mg oral tablet (20 [...] lightheaded doxepin hydrochloride 150 mg oral capsule (20 sources) Tricyclic Antidepressant Start: 07-30-2023 take 1 capsule by mouth at bedtime Doxepin 150 mg capsule Active 150 mg PO AT BEDTIME July 30, 2023 12:00am Start: 04-20-2022 End: 10-13-2022 take 1 capsule by mouth at bedtime Doxepin 150 mg capsule Discontinued 150 mg PO AT BEDTIME April 20, 2022 1:00am October 13, 2022 10:30am doxycycline hyclate 100 mg oral tablet (4 sources) Tetracycline-class Drug Start: 08-29-2024 take 1 tablet by mouth twice daily Doxycycline Hyclate 100 mg tablet Active 100 mg PO TWICE A DAY 12 21August 29, 2024 12:00am Start: 01-04-2024 End: 08-27-2024 take 1 tablet by mouth twice daily Doxycycline Monohydrate 100 mg tablet Discontinued 100 mg PO TWICE A DAY January 04, 2024 12:00am August 27, 2024 8:57pm hydroCHLOROthiazide 12.5 mg / valsartan 80 mg oral tablet (5 sources) Thiazide Diuretic, Angiotensin 2 Receptor Concetta Start: 02-17-2020 take 1 tablet by mouth once daily Valsartan-Hydrochlorothiazide Active 1 TABLET PO DAILY February 17, 2020 12:00am metoclopramide 10 mg oral tablet (5 sources) Dopamine-2 Receptor Antagonist Start: 01-25-2020 take 10 mg by mouth four times daily Metoclopramide Hcl Active 10 MG PO 4 TIMES DAILY January 25, 2020 12:00am omeprazole 20 mg delayed release oral capsule (20 sources) Proton Pump Inhibitor Start: 07-30-2023 take [...] Sig (Original) acetaminophen 325 mg oral tablet (14 sources) Start: 08-02-2022 End: 01-03-2024 Acetaminophen 325 [...] June 20, 2019 June 27, 2019 12:02am apixaban 5 mg oral tablet (6 sources) Factor Xa Inhibitor Start: 01-03-2024 End: 08-27-2024 take 1 tablet by mouth twice daily Apixaban (Eliquis) 5 mg tablet Discontinued 5 mg PO TWICE A DAY January 03, 2024 12:00am August 27, 2024 8:58pm Start: 08-04-2023 End: 01-03-2024 take 2 tablets by mouth twice daily, then take 1 tablet by mouth twice daily Apixaban (Eliquis) 5 mg tablet Discontinued 5 mg PO TWICE A DAY 60 August 04, 2023 12:00am January 03, 2024 3:13pm take 2 tabs (10mg) twice daily till 08/06/2023, then continue with one tablet (5mg) twice daily bisacodyl 10 mg rectal suppository (13 sources) Stimulant Laxative Start: 10-14-2022 End: 07-30-2023 Bisacodyl 10 mg Suppository Discontinued 10 mg RC DAILY as needed for Constipation 0 October 14, 2022 12:00am July 30, 2023 3:58pm Pfky-wbb-auadqnr. ciprofloxacin 500 mg oral tablet (13 sources) Quinolone Antimicrobial Start: 10-14-2022 End: 11-04-2022 take 1 tablet by mouth twice daily Ciprofloxacin Hcl 500 mg tablet Discontinued 500 mg PO TWICE A DAY 10 October 14, 2022 12:00am November 04, 2022 1:54pm citalopram 20 mg oral tablet (19 sources) Serotonin Reuptake Inhibitor Start: 08-09-2022 End: [...] 3:20pm docusate sodium 50 mg / sennosides, long term 8.6 mg oral tablet (13 sources) Start: 10-14-2022 End: 07-30-2023 Sennosides-Docusat e Sodium (Stool Softener-Stimulant Laxat) 8.6-50 mg Tablet Discontinued 2 {tbl} PO TWICE A DAY 0 October 14, 2022 12:00am July 30, 2023 4:02pm Take as scheduled for 3 days and then as needed for constipation Available acsm-mmh-tzevucg. gabapentin 400 mg oral capsule (16 sources) Anti-epileptic Agent Start: 04-20-2022 End: 01-03-2024 take 1 capsule by mouth every six hours Gabapentin 400 mg capsule Discontinued 400 mg PO EVERY 6 HOURS April 20, 2022 1:00am January 03, 2024 3:12pm levoFLOXacin 750 mg oral tablet (14 sources) Quinolone Antimicrobial Start: 08-02-2022 End: 10-13-2022 take 1 tablet by mouth once daily Levofloxacin 750 mg tablet Discontinued 750 mg PO DAILY August 02, 2022 12:00am October 13, 2022 10:31am 24 hr metoprolol succinate 25 mg extended release oral tablet (4 sources) beta-Adrenergic Concetta Start: 07-30-2023 End: 08-27-2024 take 1 tablet by mouth once daily Metoprolol Succinate 25 mg tablet extended release 24 hr Discontinued 25 mg PO DAILY July 30, 2023 12:00am August 27, 2024 8:58pm metroNIDAZOLE 500 mg oral tablet (13 sources) Nitroimidazole Antimicrobial Start: 10-14-2022 End: 11-04-2022 take 1 tablet by mouth every eight hours Metronidazole 500 mg tablet Discontinued 500 mg PO Q8H 15 5 October 14, 2022 12:00am November 04, 2022 1:54pm naproxen 500 mg oral tablet (20 sources) Nonsteroidal Anti-inflammatory Drug Start: 10-13-2022 End: 03-17-2023 take 1 tablet by mouth every twelve hours as needed for pain Naproxen 500 mg tablet Discontinued 500 mg PO Q12H as needed for arthritis pain 0 October 14, 2022 8:30am March 17, 2023 4:28pm nystatin [id number] unt/ml oral suspension (14 sources) Polyene Antifungal Start: 08-08-2022 End: 08-15-2022 take 1 mL by mouth twice daily Nystatin 100,000 unit/mL suspension Discontinued 10 mL PO TWICE A DAY 140 August 08, 2022 12:00am August 14, 2022 12:00am August 15, 2022 12:04am swish and swallow Start: 08-08-2022 End: 08-15-2022 take 1 mL by mouth twice daily Nystatin Discontinued 1 0 ML PO TWICE A DAY 140 August 08, 2022 12:00am August 15, 2022 [...] October 13, 2022 10:30am polyethylene glycol 3350 57480 mg powder for oral solution (13 sources) Osmotic Laxative Start: 10-14-2022 End: 03-17-2023 Polyethylene Glycol 3350 (Miralax) 17 gram/dose powder Discontinued 17 g PO DAILY October 14, 2022 12:00am March 17, 2023 4:28pm available over the counter predniSONE 20 mg oral tablet (8 sources) Start: 03-17-2023 End: 07-30-2023 take 2 tablets by mouth once daily Prednisone 20 mg tablet Discontinued 40 mg PO DAILY 12 21March 17, 2023 1:00am July 30, 2023 4:02pm Start: 03-17-2023 End: 07-30-2023 take 40 mg by mouth once daily Prednisone Discontinued 40 MG PO DAILY 10 March 17, 2023 1:00am July 30, 2023 4:02pm traMADol hydrochloride 50 mg oral tablet (8 sources) Opioid Agonist Start: 03-17-2023 End: 11-02-2023 [...] 01-26-2020 Episodic Acute and unspecified renal failure (5 sources) Acute renal failure syndrome; Translations: [Acute kidney failure, unspecified] 07-30-2023 Episodic Aspiration pneumonitis; food/vomitus (8 sources) Aspiration pneumonia; Translations: [Pneumonitis due to inhalation of food and vomit] Onset: 07-30-2023 Episodic Cardiac dysrhythmias (20 sources) Palpitations 01-23-2020 Episodic Complication of device; implant or graft (18 sources) Pain; Translations: [Pain due to other internal prosthetic devices, implants and grafts, initial encounter] 04-27-2022 Episodic E Codes: Fall (19 sources) Fall; Translations: [Unspecified fall, initial encounter] 07-24-2023 Episodic Esophageal disorders (20 sources) Gastroesophageal reflux disease 01-23-2020 Chronic Essential hypertension (1 source) Essential (primary) hypertension; Translations: [Essential (primary) hypertension] Onset: 05-05-202 5 Chronic Fluid and electrolyte disorders (5 sources) Dehydration; Translations: [Dehydration] 07-30-2023 Episodic Headache; including migraine (20 sources) Migraine 01-23-2020 Chronic Influenza (20 sources) Influenza; Translations: [Influenza due to unidentified influenza virus with other respiratory manifestations] 07-29-2022 Episodic Intestinal obstruction without hernia (20 sources) Paralytic ileus; Translations: [Paralytic ileus of [...] Translations: [Scoliosis, unspecified] 02-17-2020 Chronic Other aftercare (3 sources) Long-term current use of 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; 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] 08-19-2023 Episodic Other bone disease and musculoskeletal deformities (20 sources) Segmental and somatic dysfunction; Translations: [Segmental and somatic dysfunction of lumbar region] 02-17-2020 Episodic Other bone disease and musculoskeletal deformities (20 sources) Thoracic segmental dysfunction; Translations: [Segmental and somatic dysfunction of thoracic region] 02-17-2020 Episodic Other circulatory disease (4 sources) Low blood pressure; Translations: [Hypotension, unspecified] 07-30-2023 Episodic Other circulatory disease (1 source) Hypotension, unspecified; Translations: [Hypotension, unspecified] 07-30-2023 Episodic Other connective tissue disease (5 sources) Weakness of face muscles; Translations: [Facial weakness] 08-03-2022 Episodic Other connective tissue disease (5 sources) Facial weakness; Translations: [Facial weakness] 08-03-2022 Episodic Other gastrointestinal disorders (14 sources) Dysphagia; Translations: [Dysphagia, unspecified] 08-11-2022 Episodic Other infections; including parasitic (1 source) Unspecified infectious disease; Translations: [Unspecified infectious disease] Onset: Episodic Other injuries and conditions due to external causes (14 sources) Traumatic hematoma; Translations: [Other injury of unspecified body region, initial encounter] 09-03-2022 Episodic Other injuries and conditions due to external causes (18 sources) Closed injury of head; Translations: [Unspecified injury of head, initial encounter] 09-03-2022 Episodic Other injuries and conditions due to external causes (1 source) Unspecified injury of head, initial encounter; Translations: [Head injury, unspecified] 07-30-2023 Episodic Other lower respiratory disease (15 sources) Hypoxemia; Translations: [Hypoxemia] 07-29-2022 Episodic Other lower respiratory disease (7 sources) Hypoxemia; Translations: [Hypoxemia] 07-29-2022 Episodic Other lower respiratory disease (7 sources) Hypoxia; Translations: [Hypoxemia] 07-30-2023 Episodic Other lower respiratory disease (2 sources) Single lobe lung infiltrate; Translations: [Other nonspecific abnormal finding of lung field] 08-27-2024 Episodic Other nervous system disorders (6 sources) Disorder of brain; Translations: [Encephalopathy, unspecified] 01-12-2024 Chronic Other nervous system disorders (1 source) Other encephalopathy; Translations: [Other encephalopathy] Onset: 5 Chronic Other nervous system disorders (1 source) Encephalopathy, unspecified; Translations: [Encephalopathy, unspecified] Onset: 4 Chronic Other nervous system disorders (10 sources) Toxic metabolic encephalopathy; Translations: [Toxic metabolic encephalopathy] 11-12-2022 Episodic Other screening for suspected conditions (not [...] [Vascular disorder of intestine, unspecified] 02-17-2020 Chronic Pulmonary heart disease (5 sources) Pulmonary embolism; Translations: [Other pulmonary embolism without acute cor pulmonale] 07-30-2023 Episodic Residual codes; unclassified (1 source) Altered mental status; Translations: [Altered mental status, unspecified] 11-01-2022 Episodic Residual codes; unclassified (1 source) Altered mental status, unspecified; Translations: [Altered mental status] 11-01-2022 Episodic Respiratory failure; insufficiency; arrest (adult) (20 sources) Respiratory failure; Translations: [Respiratory failure, unspecified, unspecified whether with hypoxia or hypercapnia] 07-29-2022 Episodic Septicemia (except in labor) (2 sources) Sepsis; Translations: [Sepsis, unspecified organism] 08-27-2024 Episodic Spondylosis; intervertebral disc disorders; other back problems (20 sources) Chronic low back pain; Translations: [Chronic low back pain] 01-23-2020 Episodic Comment on above: Has electrical stimu lator Sprains and strains (14 sources) Strain of neck muscle; Translations: [Strain of muscle, fascia and tendon at neck level, initial encounter] 09-03-2022 Episodic Substance-related disorders (1 source) Opioid dependence, uncomplicated; Translations: [Opioid dependence, uncomplicated] Onset: Chronic Superficial injury; contusion (9 sources) Contusion of lower back; Translations: [Contusion of lower back and pelvis, initial encounter] 09-06-2023 Episodic Urinary tract infections (3 sources) Acute urinary tract infection; Translations: [Urinary tract infection, site not specified] 01-03-2024 Episodic Past or Other Problems Problem Classification Problem Date Documented Da te Episodic/Chronic Fracture of upper limb (11 sources) Closed fracture proximal humerus, greater tuberosity; Translations: [Displaced fracture of greater tuberosity of right humerus, initial encounter for closed fracture] Onset: 12-06-2023 07-24-2023 Episodic Genitourinary symptoms and ill-defined conditions (19 sources) Retention of urine; Translations: [Retention of urine, unspecified] Onset: 05-01-2024 10-13-2022 Episodic Other non-traumatic joint disorders (1 source) Pain in right shoulder; Translations: [Pain in right shoulder] Onset: 06-11-2024 Episodic Pneumonia (except that caused by tuberculosis or sexually transmitted disease) (20 sources) Pneumonia; Translations: [Pneumonia, unspecified organism] Onset: 01-06-2024 07-29-2022 Episodic Residual codes; unclassified (1 source) Chills (without fever); Translations: [Chills (without fever)] Onset: 03-20-2024 Episodic Results Test Name Value Interpretation Reference Range Facility Culture, Blood (WB)on 2024 CUB Blood cultures x2, f rom two different sites No growth in 5 days. Normal [facility] Comment on above: Performed By: #### L 801.1543, L505.5000, L801.1541 #### [facility] [address] [place], [address] Basic Metabolic Profile (BMP )on 09-01-2024 BUN Normal 4-19 [facility] Comment on above: Result Comment: Canc elled via OM: Order cancelled - Patient discharged Performed By: #### L 500.2500, L100.0500 #### [facility] [address] [place], [address] BUN/CRE Normal 10-20 [facility] Comment on above: Result Comment: Canc elled via OM: Order cancelled - Patient discharged Performed By: #### L 500.2500, L100.0500 #### [facility] [address] [place], [address] Calcium Normal 7.6-11.0 [facility] Comment on above: Result Comment: Canc elled via OM: Order cancelled - Patient discharged Performed By: #### L 500.2500, L100.0500 #### [facility] [address] [place], [address] CL Normal 98-108 [facility] Comment on above: Result Comment: Canc elled via OM: Order cancelled - Patient discharged Performed By: #### L 500.2500, L100.0500 #### [facility] [address] [place], [address] CO2 Normal 21.0-32.0 [facility] Comment on above: Result Comment: Canc elled via OM: Order cancelled - Patient discharged Performed By: #### L 500.2500, L100.0500 #### [facility] [address] [place], [address] CREAT,SERUM Normal 0.70-1.20 [facility] Comment on above: Result Comment: Canc elled via OM: Order cancelled - Patient discharged Performed By: #### L 500.2500, L100.0500 #### [facility] [address] [place], [address] eGFR Normal >60 [facility] Comment on above: Result Comment: Canc elled via OM: Order cancelled - Patient discharged Performed By: #### L 500.2500, L100.0500 #### [facility] [address] [place], [address] GAP Normal 5-15 [facility] Comment on above: Result Comment: Canc elled via OM: Order cancelled - Patient discharged Performed By: #### L 500.2500, L100.0500 #### [facility] [address] [place], [address] GLU Normal 70-99 [facility] Comment on above: Result Comment: Canc elled via OM: Order cancelled - Patient discharged Performed By: #### L 500.2500, L100.0500 #### [facility] [address] [place], [address] Potassium Normal 3.3-5.1 [facility] Comment on above: Result Comment: Canc elled via OM: Order cancelled - Patient discharged Performed By: #### L 500.2500, L100.0500 #### [facility] [address] [place], [address] Basic Metabolic Profile (BMP) Normal 133-145 [facility] Comment on above: Result Comment: Canc elled via OM: Order cancelled - Patient discharged Performed By: #### L 500.2500, L100.0500 #### [facility] [address] [place], [address] CBC-Complete Blood Cnt No Di ffon 09-01-2024 HCT Normal 37-47 [facility] Comment on above: Result Comment: Canc elled via OM: Order cancelled - Patient discharged Performed By: #### L 500.2500, L100.0500 #### [facility] [address] [place], [address] HGB Normal 12.0-15.0 [facility] Comment on above: Result Comment: Canc elled via OM: Order cancelled - Patient discharged Performed By: #### L 500.2500, L100.0500 #### [facility] [address] [place], [address] MCH Normal 27.0-32.0 [facility] Comment on above: Result Comment: Canc elled via OM: Order cancelled - Patient discharged Performed By: #### L 500.2500, L100.0500 #### [facility] [address] [place], [address] MCHC Normal 32-36 [facility] Comment on above: Result Comment: Canc elled via OM: Order cancelled - Patient discharged Performed By: #### L 500.2500, L100.0500 #### [facility] [address] [place], [address] MCV Normal 81-99 [facility] Comment on above: Result Comment: Canc elled via OM: Order cancelled - Patient discharged Performed By: #### L 500.2500, L100.0500 #### [facility] [address] [place], [address] PLT Normal 150-450 [facility] Comment on above: Result Comment: Canc elled via OM: Order cancelled - Patient discharged Performed By: #### L 500.2500, L100.0500 #### [facility] [address] [place], [address] RBC Normal 4.2-5.4 [facility] Comment on above: Result Comment: Canc elled via OM: Order cancelled - Patient discharged Performed By: #### L 500.2500, L100.0500 #### [place] [facility] [address] [place], [address] RDW CV Normal 11.6-14.6 [facility] Comment on above: Result Comment: Canc elled via OM: Order cancelled - Patient discharged Performed By: #### L 500.2500, L100.0500 #### [facility] [address] [place], [address] RDW SD Normal 35.1-43.9 [facility] Comment on above: Result Comment: Canc elled via OM: Order cancelled - Patient discharged Performed By: #### L 500.2500, L100.0500 #### [facility] [address] [place], [address] WBC Normal 4.4-11.0 [facility] Comment on above: Result Comment: Canc elled via OM: Order cancelled - Patient discharged Performed By: #### L 500.2500, L100.0500 #### [facility] [address] [place], [address] Basic Metabolic Profile (BMP )on 08-31-2024 BUN Normal 4-19 [facility] Comment on above: Result Comment: Canc elled via OM: Order cancelled - Patient discharged Performed By: #### L 100.0500, L500.2500 ####[facility] [id number] [place], [address] BUN/CRE Normal 10-20 [facility] Comment on above: Result Comment: Canc elled via OM: Order cancelled - Patient discharged Performed By: #### L 100.0500, L500.2500 ####[facility] [id number] [place], [address] Calcium Normal 7.6-11.0 [facility] Comment on above: Result Comment: Canc elled via OM: Order cancelled - Patient discharged Performed By: #### L 100.0500, L500.2500 ####[facility] [id number] [place], [address] CL Normal 98-108 [facility] Comment on above: Result Comment: Canc elled via OM: Order cancelled - Patient discharged Performed By: #### L 100.0500, L500.2500 ####[facility] [address] [place], [address] CO2 Normal 21.0-32.0 [facility] Comment on above: Result Comment: Canc elled via OM: Order cancelled - Patient discharged Performed By: #### L 100.0500, L500.2500 ####[facility] [address] [place], [address] CREAT,SERUM Normal 0.70-1.20 [facility] Comment on above: Result Comment: Canc elled via OM: Order cancelled - Patient discharged Performed By: #### L 100.0500, L500.2500 ####[facility] [address] [place], [address] eGFR Normal >60 [facility] Comment on above: Result Comment: Canc elled via OM: Order cancelled - Patient discharged Performed By: #### L 100.0500, L500.2500 ####[facility] [address] [place], [address] GAP Normal 5-15 [facility] Comment on above: Result Comment: Canc elled via OM: Order cancelled - Patient discharged Performed By: #### L 100.0500, L500.2500 ####[facility] [address] [place], [address] GLU Normal 70-99 [facility] Comment on above: Result Comment: Canc elled via OM: Order cancelled - Patient discharged Performed By: #### L 100.0500, L500.2500 ####[facility] [address] [place], [address] Potassium Normal 3.3-5.1 [facility] Comment on above: Result Comment: Canc elled via OM: Order cancelled - Patient discharged Performed By: #### L 100.0500, L500.2500 ####[facility] [address] [place], [address] Basic Metabolic Profile (BMP) Normal 133-145 [facility] Comment on above: Result Comment: Canc elled via OM: Order cancelled - Patient discharged Performed By: #### L 100.0500, L500.2500 ####[facility] [address] [place], [address] CBC-Complete Blood Cnt No Di ffon 08-31-2024 HCT Normal 37-47 [facility] Comment on above: Result Comment: Canc elled via OM: Order cancelled - Patient discharged Performed By: #### L 100.0500, L500.2500 ####[facility] [address] [place], [address] HGB Normal 12.0-15.0 [facility] Comment on above: Result Comment: Canc elled via OM: Order cancelled - Patient discharged Performed By: #### L 100.0500, L500.2500 ####[facility] [address] [place], [address] MCH Normal 27.0-32.0 [facility] Comment on above: Result Comment: Canc elled via OM: Order cancelled - Patient discharged Performed By: #### L 100.0500, L500.2500 ####[facility] [address] [place], [address] MCHC Normal 32-36 [facility] Comment on above: Result Comment: Canc elled via OM: Order cancelled - Patient discharged Performed By: #### L 100.0500, L500.2500 ####[facility] [address] [place], [address] MCV Normal 81-99 [facility] Comment on above: Result Comment: Canc elled via OM: Order cancelled - Patient discharged Performed By: #### L 100.0500, L500.2500 ####[facility] [address] [place], [address] PLT Normal 150-450 [facility] Comment on above: Result Comment: Canc elled via OM: Order cancelled - Patient discharged Performed By: #### L 100.0500, L500.2500 ####[facility] [address] [place], [address] RBC Normal 4.2-5.4 [facility] Comment on above: Result Comment: Canc elled via OM: Order cancelled - Patient discharged Performed By: #### L 100.0500, L500.2500 ####[facility] [address] [place], [address] RDW CV Normal 11.6-14.6 [facility] Comment on above: Result Comment: Canc elled via OM: Order cancelled - Patient discharged Performed By: #### L 100.0500, L500.2500 ####[facility] [address] [place], [address] RDW SD Normal 35.1-43.9 [facility] Comment on above: Result Comment: Canc elled via OM: Order cancelled - Patient discharged Performed By: #### L 100.0500, L500.2500 ####[facility] [address] [place], [address] WBC Normal 4.4-11.0 [facility] Comment on above: Result Comment: Canc elled via OM: Order cancelled - Patient discharged Performed By: #### L 100.0500, L500.2500 ####[facility] [address] [place], [address] Basic Metabolic Profile (BMP )on 08-30-2024 BUN Normal 4-19 [facility] Comment on above: Result Comment: Canc elled via OM: Order cancelled - Patient discharged Performed By: #### L 500.2500, L100.0500 ####[facility] [address] [place], [address] BUN/CRE Normal 10-20 [facility] Comment on above: Result Comment: Canc elled via OM: Order cancelled - Patient discharged Performed By: #### L 500.2500, L100.0500 ####[facility] [address] [place], [address] Calcium Normal 7.6-11.0 [facility] Comment on above: Result Comment: Canc elled via OM: Order cancelled - Patient discharged Performed By: #### L 500.2500, L100.0500 ####[facility] [address] [place], [address] CL Normal 98-108 [facility] Comment on above: Result Comment: Canc elled via OM: Order cancelled - Patient discharged Performed By: #### L 500.2500, L100.0500 ####[facility] [address] [place], [address] CO2 Normal 21.0-32.0 [facility] Comment on above: Result Comment: Canc elled via OM: Order cancelled - Patient discharged Performed By: #### L 500.2500, L100.0500 ####[facility] [address] [place], [address] CREAT,SERUM Normal 0.70-1.20 [facility] Comment on above: Result Comment: Canc elled via OM: Order cancelled - Patient discharged Performed By: #### L 500.2500, L100.0500 ####[facility] [address] [place], [address] eGFR Normal >60 [facility] Comment on above: Result Comment: Canc elled via OM: Order cancelled - Patient discharged Performed By: #### L 500.2500, L100.0500 ####[facility] [address] [place], [address] GAP Normal 5-15 [facility] Comment on above: Result Comment: Canc elled via OM: Order cancelled - Patient discharged Performed By: #### L 500.2500, L100.0500 ####[facility] [address] [place], [address] GLU Normal 70-99 [facility] Comment on above: Result Comment: Canc elled via OM: Order cancelled - Patient discharged Performed By: #### L 500.2500, L100.0500 ####[facility] [address] [place], [address] Potassium Normal 3.3-5.1 [facility] Comment on above: Result Comment: Canc elled via OM: Order cancelled - Patient discharged Performed By: #### L 500.2500, L100.0500 ####[facility] [address] [place], [address] Basic Metabolic Profile (BMP) Normal 133-145 [facility] Comment on above: Result Comment: Canc elled via OM: Order cancelled - Patient discharged Performed By: #### L 500.2500, L100.0500 ####[facility] [address] [place], [address] CBC-Complete Blood Cnt No Di ffon 08-30-2024 HCT Normal 37-47 [facility] Comment on above: Result Comment: Canc elled via OM: Order cancelled - Patient discharged Performed By: #### L 500.2500, L100.0500 ####[facility] [address] [place], [address] HGB Normal 12.0-15.0 [facility] Comment on above: Result Comment: Canc elled via OM: Order cancelled - Patient discharged Performed By: #### L 500.2500, L100.0500 ####[facility] [address] [place], [address] MCH Normal 27.0-32.0 [facility] Comment on above: Result Comment: Canc elled via OM: Order cancelled - Patient discharged Performed By: #### L 500.2500, L100.0500 ####[facility] [address] [place], [address] MCHC Normal 32-36 [facility] Comment on above: Result Comment: Canc elled via OM: Order cancelled - Patient discharged Performed By: #### L 500.2500, L100.0500 ####[facility] [address] [place], [address] MCV Normal 81-99 [facility] Comment on above: Result Comment: Canc elled via OM: Order cancelled - Patient discharged Performed By: #### L 500.2500, L100.0500 ####[facility] [address] [place], [address] PLT Normal 150-450 [facility] Comment on above: Result Comment: Canc elled via OM: Order cancelled - Patient discharged Performed By: #### L 500.2500, L100.0500 ####[facility] [address] [place], [address] RBC Normal 4.2-5.4 [facility] Comment on above: Result Comment: Canc elled via OM: Order cancelled - Patient discharged Performed By: #### L 500.2500, L100.0500 ####[facility] [address] [place], [address] RDW CV Normal 11.6-14.6 [facility] Comment on above: Result Comment: Canc elled via OM: Order cancelled - Patient discharged Performed By: #### L 500.2500, L100.0500 ####[facility] [address] [place], [address] RDW SD Normal 35.1-43.9 [facility] Comment on above: Result Comment: Canc elled via OM: Order cancelled - Patient discharged Performed By: #### L 500.2500, L100.0500 ####[facility] [address] [place], [address] WBC Normal 4.4-11.0 [facility] Comment on above: Result Comment: Canc elled via OM: Order cancelled - Patient discharged Performed By: #### L 500.2500, L100.0500 ####[facility] [address] [place], [address] Urine Cultureon 08-30-2024 URC Yeast, not Mary [place] a lbicans [place] Count 11,000-25,000 Normal [facility] Comment on above: Performed By: #### L 801.1543, L505.5000, L801.1541 #### [facility] [address] [place], [address] Anion gap in Serum or Plasma Ordered By: Christofer Espino on 08-29-2024 Anion gap [Moles/Vol] 11 mmol/L 07-31 [facility] BUN/creatinine ratioOrdered By: Christofer Espino on 08-29-2024 Urea nitrogen/Creatinine [Mass ratio] 11.8 mg/mg 01-05 [facility] Basic Metabolic Profile (BMP )on 08-29-2024 BUN/CRE 11.8 RATIO Normal 01-05 [facility] Comment on above: Performed By: #### L 500.2500, L100.0500 ####[facility] [address] [place], [address] Calcium [Mass/Vol] 8.3 mg/dL Normal 7.6-11.0 [facility] Comment on above: Performed By: #### L 500.2500, L100.0500 ####[facility] [address] [place], [address] Chloride [Moles/Vol] 109 mmol/L High 98-108 [facility] Comment on above: Performed By: #### L 500.2500, L100.0500 ####[facility] [address] [place], [address] CO2 [Moles/Vol] 20.9 mmol/L Low 21.0-32.0 [facility] Comment on above: Performed By: #### L 500.2500, L100.0500 ####[facility] [address] [place], [address] Creatinine [Mass/Vol] 0.73 mg/dL Normal 0.70-1.20 [facility] Comment on above: Performed By: #### L 500.2500, L100.0500 ####[facility] [address] [place], [address] ECRCL 47.71 ml/min Low 50-250 [facility] Comment on above: Performed By: #### L 500.2500, L100.0500 ####[facility] [address] [place], [address] GAP 11 Normal 5-15 [facility] Comment on above: Performed By: #### L 500.2500, L100.0500 ####[facility] [address] [place], [address] GFR/1.73 sq M.predicted among non-blacks MDRD (S/P/Bld) [Vol rate/Area] 86 mL/min/{1.73_m2} Normal >60 [facility] Comment on above: Result Comment: mL/m in/1.73m2 CKD-EPI Creatinine Equation (2020) Performed By: #### L 500.2500, L100.0500 ####[facility] [address] [place], [address] Glucose [Mass/Vol] 75 mg/dL Normal 70-99 [facility] Comment on above: Performed By: #### L 500.2500, L100.0500 ####[facility] [address] [place], [address] Potassium [Moles/Vol] 3.6 mmol/L Normal 3.3-5.1 [facility] Comment on above: Performed By: #### L 500.2500, L100.0500 ####[facility] [address] [place], [address] Sodium [Moles/Vol] 141 mmol/L Normal 133-145 [facility] Comment on above: Performed By: #### L 500.2500, L100.0500 ####[facility] [address] [place], [address] Urea nitrogen [Mass/Vol] 9 mg/dL Normal 4-19 [facility] Comment on above: Performed By: #### L 500.2500, L100.0500 ####[facility] [address] [place], [address] CBC-Complete Blood Cnt No Di ffon 08-29-2024 Erythrocyte distribution width (RBC) [Ratio] 13.2 % Normal 11.6-14.6 [facility] Comment on above: Performed By: #### L 500.2500, L100.0500 ####[facility] [address] [place], [address] Hematocrit (Bld) [Volume fraction] 29.9 % Low 37-47 [facility] Comment on above: Performed By: #### L 500.2500, L100.0500 ####[facility] [address] [place], [address] Hemoglobin (Bld) [Mass/Vol] 10.0 g/dL Low 12.0-15.0 [facility] Comment on above: Performed By: #### L 500.2500, L100.0500 ####[facility] [address] [place], [address] MCH (RBC) [Entitic mass] 31.6 pg Normal 27.0-32.0 [facility] Comment on above: Performed By: #### L 500.2500, L100.0500 ####[facility] [address] [place], [address] MCHC (RBC) [Mass/Vol] 33.4 g/dL Normal 32-36 [facility] Comment on above: Performed By: #### L 500.2500, L100.0500 ####[facility] [address] [place], [address] MCV (RBC) [Entitic vol] 94.6 fL Normal 81-99 [facility] Comment on above: Performed By: #### L 500.2500, L100.0500 ####[facility] [address] [place], [address] Platelet mean volume (Bld) [Entitic vol] 9.7 fL Normal 6.2-12.0 [facility] Comment on above: Performed By: #### L 500.2500, L100.0500 ####[facility] [address] [place], [address] Platelets (Bld) [#/Vol] 284 10*3/uL Normal 150-450 [facility] Comment on above: Performed By: #### L 500.2500, L100.0500 ####[facility] [address] [place], [address] RBC (Bld) [#/Vol] 3.16 10*6/uL Low 4.2-5.4 [facility] Comment on above: Performed By: #### L 500.2500, L100.0500 ####[facility] [address] [place], [address] RDW SD 45.9 fl High 35.1-43.9 [facility] Comment on above: Performed By: #### L 500.2500, L100.0500 ####[facility] [address] [place], [address] WBC (Bld) [#/Vol] 4.4 10*3/uL Normal 4.4-11.0 [facility] Comment on above: Performed By: #### L 500.2500, L100.0500 ####[facility] [address] [place], [address] Carbon dioxide, total [Moles /volume] in Central venous bloodOrdered By: Christofer Espino on 08-29-2024 CO2 [Moles/Vol] 20.9 mmol/L Low 21.0-32.0 [facility] Chloride assayOrdered By: Jeffrey Espino on 08-29-2024 Chloride [Moles/Vol] 109 mmol/L High 98-108 [facility] Discharge Instructionon 08-17 Discharge Instruction [facility] Medical Records Department [address] [place] [address] Instructions for Home/Discharge Instructions 08/29/24 1250 MR#: [id number] Acct: [id number] Name: CAROL ZARAGOZA Rep #: [id number] : 1950 74 From: Christofer Espino DO PCP: Dr. Harish Luis MD Status:ADM IN Discharge Instructions DC O2, CPAP, BIPAP needs Home O2 Discharge instructions: No Dressing / Incision Discharge Activity: No Restrictions Follow Up Care Test Results: Test results from this visit will be discussed in further detail at your follow-up appointment, if applicable. Discharge Plan Admission Admit Date/Time: 08/27/24 17:13 Primary Reason for Your Visit: confusion w/ fevers Attending Provider: Christofer Espino Primary Care Provider: Harish Luis Chi Discharge Orders/Prescriptions Prescriptions: New doxycycline hyclate 100 mg tablet 100 mg PO BID 5 Days Qty: 10 0RF Continued clonazepam 1 MG tablet 1 mg PO TID buspirone 7.5 MG tablet 7.5 mg PO BID omeprazole 20 mg capsule,delayed release(DR/EC) 20 mg PO DAILY doxepin 150 mg capsule 150 mg PO QHS Referrals / Follow Up: Harish Luis Chi, MD [Primary Care Provider] - Disposition Disposition (needs filled in before D/C Order can be placed): Home, Self Care 08/29/24 4792 Christofer Espino DO CC: Dr. Harish Luis MD Signed Normal [facility] Erythrocyte distribution wid th ratioOrdered By: Christofer Espino on 08-29-2024 Erythrocyte distribution width (RBC) [Ratio] 13.2 % 11.6-14.6 [facility] Erythrocyte distribution wid th standard deviationOrdered By: Christofer Espino on 08-29-2024 Erythrocyte distribution width (RBC) [Ratio] 45.9 fl High 35.1-43.9 [facility] Glomerular filtration rate ( GFR) estimation/1.73 sq m using serum, plasma, or whole bOrdered By: Christofer Espino on 08-29-2024 GFR/1.73 sq M.predicted among non-blacks MDRD (S/P/Bld) [Vol rate/Area] 86 mL/min/{1.73_m2} >60 [facility] Comment on above: mL/min/1.73m2 CKD-EP I Creatinine Equation (2020) Hematocrit Auto (Bld) [Volum e fraction]Ordered By: Christofer Espino on 08-29-2024 Hematocrit (Bld) [Volume fraction] 29.9 % Low 37-47 [facility] Hemoglobin measurementOrdere d By: Christofer Espino on 08-29-2024 Hemoglobin (Bld) [Mass/Vol] 10.0 g/dL Low 12.0-15.0 [facility] MCV (mean corpuscular volume ) determinationOrdered By: Christofer Espino on 08-29-2024 MCV (RBC) [Entitic vol] 94.6 fL 81-99 [facility] Mean corpuscular hemoglobin (MCH) determinationOrdered By: Christofer Espino on 08-29-2024 MCH (RBC) [Entitic mass] 31.6 pg 27.0-32.0 [facility] Mean corpuscular hemoglobin concentration (MCHC) determinationOrdered By: Christofer Espino on 08-29-2024 MCHC (RBC) [Mass/Vol] 33.4 g/dL 32-36 [facility] Mean platelet volume determi nationOrdered By: Christofer Espino on 08-29-2024 Platelet mean volume (Bld) [Entitic vol] 9.7 fL 6.2-12.0 [facility] Platelet countOrdered By: Jeffrey Espino on 08-29-2024 Platelets (Bld) [#/Vol] 284 10*3/uL 150-450 [facility] Potassium measurement (mass/ volume)Ordered By: Christofer Espino on 08-29-2024 Potassium (Unsp spec) [Mass/Vol] 3.6 mmol/L 3.3-5.1 [facility] RBC Auto (Bld) [#/Vol]Ordere d By: Christofer Espino on 08-29-2024 RBC (Bld) [#/Vol] 3.16 10*6/uL Low 4.2-5.4 [facility] Serum creatinine measurement (mass/volume)Ordered By: Christofer Espino on 08-29-2024 Creatinine [Mass/Vol] 0.73 mg/dL 0.70-1.20 [facility] Serum glucose measurement (m ass/volume)Ordered By: Christofer Espino on 08-29-2024 Glucose [Mass/Vol] 75 mg/dL 70-99 [facility] Serum or plasma calcium rosangela urement (mass/volume)Ordered By: Christofer Espino on 08-29-2024 Calcium [Mass/Vol] 8.3 mg/dL 7.6-11.0 [facility] Serum or plasma urea nitroge n measurement (mass/volume)Ordered By: Christofer Espino on 08-29-2024 Urea nitrogen [Mass/Vol] 9 mg/dL 4-19 [facility] Sodium levelOrdered By: Ezekiel Espino on 08-29-2024 Sodium [Moles/Vol] 141 mmol/L 133-145 [facility] White blood cell (WBC) count Ordered By: Christofer Espino on 08-29-2024 WBC (Bld) [#/Vol] 4.4 10*3/uL 4.4-11.0 [facility] Basic Metabolic Profile (BMP )on 08-28-2024 BUN/CRE 11.6 RATIO Normal 10-20 [facility] Comment on above: Performed By: #### L 500.2500, L100.0500 ####[facility] [address] [place], [address] Calcium [Mass/Vol] 7.7 mg/dL Normal 7.6-11.0 [facility] Comment on above: Performed By: #### L 500.2500, L100.0500 ####[facility] [address] [place], [address] Chloride [Moles/Vol] 109 mmol/L High 98-108 [facility] Comment on above: Performed By: #### L 500.2500, L100.0500 ####[facility] [address] [place], [address] CO2 [Moles/Vol] 20.4 mmol/L Low 21.0-32.0 [facility] Comment on above: Performed By: #### L 500.2500, L100.0500 ####[facility] [address] [place], [address] Creatinine [Mass/Vol] 0.78 mg/dL Normal 0.70-1.20 [facility] Comment on above: Performed By: #### L 500.2500, L100.0500 ####[facility] [address] [place], [address] ECRCL 47.71 ml/min Low 50-250 [facility] Comment on above: Performed By: #### L 500.2500, L100.0500 ####[facility] [address] [place], [address] GAP 11 Normal 5-15 [facility] Comment on above: Performed By: #### L 500.2500, L100.0500 ####[facility] [address] [place], [address] GFR/1.73 sq M.predicted among non-blacks MDRD (S/P/Bld) [Vol rate/Area] 79 mL/min/{1.73_m2} Normal >60 [facility] Comment on above: Result Comment: mL/m in/1.73m2 CKD-EPI Creatinine Equation (2020) Performed By: #### L 500.2500, L100.0500 ####[facility] [address] [place], [address] Glucose [Mass/Vol] 70 mg/dL Normal 70-99 [facility] Comment on above: Performed By: #### L 500.2500, L100.0500 ####[facility] [address] [place], [address] Potassium [Moles/Vol] 3.3 mmol/L Normal 3.3-5.1 [facility] Comment on above: Performed By: #### L 500.2500, L100.0500 ####[facility] [address] [place], [address] Sodium [Moles/Vol] 140 mmol/L Normal 133-145 [facility] Comment on above: Performed By: #### L 500.2500, L100.0500 ####[facility] [address] [place], [address] Urea nitrogen [Mass/Vol] 9 mg/dL Normal 4-19 [facility] Comment on above: Performed By: #### L 500.2500, L100.0500 ####[facility] [address] [place], [address] CBC-Complete Blood Cnt No Di ffon 08-28-2024 Erythrocyte distribution width (RBC) [Ratio] 13.4 % Normal 11.6-14.6 [facility] Comment on above: Performed By: #### L 500.2500, L100.0500 #### [facility] Laboratory [address] [place], [address] Hematocrit (Bld) [Volume fraction] 29.4 % Low 37-47 [facility] Comment on above: Performed By: #### L 500.2500, L100.0500 #### [facility] [address] [place], [address] Hemoglobin (Bld) [Mass/Vol] 9.7 g/dL Low 12.0-15.0 [facility] Comment on above: Performed By: #### L 500.2500, L100.0500 #### [facility] [address] [place], [address] MCH (RBC) [Entitic mass] 31.7 pg Normal 27.0-32.0 [facility] Comment on above: Performed By: #### L 500.2500, L100.0500 #### [facility] [address] [place], [address] MCHC (RBC) [Mass/Vol] 33.0 g/dL Normal 32-36 [facility] Comment on above: Performed By: #### L 500.2500, L100.0500 #### [facility] [address] [place], [address] MCV (RBC) [Entitic vol] 96.1 fL Normal 81-99 [facility] Comment on above: Performed By: #### L 500.2500, L100.0500 #### [facility] [address] [place], [address] Platelet mean volume (Bld) [Entitic vol] 9.8 fL Normal 6.2-12.0 [facility] Comment on above: Performed By: #### L 500.2500, L100.0500 #### [facility] [address] [place], [address] Platelets (Bld) [#/Vol] 278 10*3/uL Normal 150-450 [facility] Comment on above: Performed By: #### L 500.2500, L100.0500 #### [facility] [address] [place], [address] RBC (Bld) [#/Vol] 3.06 10*6/uL Low 4.2-5.4 [facility] Comment on above: Performed By: #### L 500.2500, L100.0500 #### [facility] [address] [place], [address] RDW SD 47.2 fl High 35.1-43.9 [facility] Comment on above: Performed By: #### L 500.2500, L100.0500 #### [facility] [address] [place], [address] WBC (Bld) [#/Vol] 4.8 10*3/uL Normal 4.4-11.0 [facility] Comment on above: Performed By: #### L 500.2500, L100.0500 #### [facility] [address] [place], [address] Electrocardiogram reportOrde red By: Mil Snyder on 08-28-2024 EKG study [facility] Cardiovascular Services [address] [place] [address] 12 Lead EKG 08/27/24 1633 MR#: [id number] Acct: [id number] Name: CAROL ZARAGOZA Rep #:[id number] : 1950 74 From: Mil banerjee MD Attending Dr: Dr. Christofer Espino, DO Status: ADM IN Ordering Dr: Huber Ballard MD Date: 08/27 Location: [facility] Sex: F C Admitted: 08/27/24 Test Reason : Blood Pressure : */* mmHG Vent. Rate : 111 BPM Atrial Rate : 111 BPM P-R Int : 144 ms QRS Dur : 68 ms QT Int : 318 ms P-R-T Axes : 67 -29 63 degrees QTcB Int : 432 ms Sinus tachycardia Low voltage QRS Borderline ECG Confirmed by Mil Snyder ([id number]), play back operator GEGE COSTELLO ([id number]) on 0:15:17 AM Referred By: Confirmed By: Mil Snyder 08/28/24 1015 Date _ Mil Snyder MD CC: Dr. Christofer Espino DO; Dr. Harish Luis MD; Dr. Huber Ballard MD ~ Signed [facility] Other Phone: Legionella Antigen Urineon 0 08-28-2024 LEGU Legionella Antigen r esult interpretation: L pneumo Ag Ur Ql Negative Presumptive negative for Legionella pneumophila serogroup 1 antigen in urine, suggesting no recent or current infection. Legionella Ag, Urine Negative (See interpretation below) Normal [facility] Comment on above: Performed By: #### L 801.1543, L505.5000, L801.1541 #### [facility] [address] [place], [place], [address] Magnesiumon 08-28-2024 Magnesium [Mass/Vol] 1.9 mg/dL Normal 1.5-2.2 [facility] Comment on above: Performed By: #### L 801.1543, L505.5000, L801.1541 #### [facility] [address] [place], [address] Magnesium measurement (mass/ volume)Ordered By: Christofer Espino on 08-28-2024 Magnesium (Unsp spec) [Mass/Vol] 1.9 mg/dL 1.5-2.2 [facility] Phosphoruson 08-28-2024 Phosphate [Mass/Vol] 2.7 mg/dL Normal 2.7-4.5 [facility] Comment on above: Performed By: #### L 801.1543, L505.5000, L801.1541 #### [facility] [address] [place], [place], [address] Strep pneumoniae Antig(UR,CS F)on 08-28-2024 STPAG [] Negative Urine Presumptive negative for pneumococcal pneumonia, suggesting no current or recent pneumococcal infection. Infection due to S pneumoniae cannot be ruled out since the antigen present in the sample may be below the detection limit of the test. Strep pneumo Test Negative URINE (See interpretation below) Normal [facility] Comment on above: Performed By: #### L 801.1543, L505.5000, L801.1541 #### [facility] Laboratory [address] [facility] [place], [address] 12 Lead EKGon 08-27-2024 12 Lead EKG [facility] Cardiovascular Services [address] [place] [address] 12 Lead EKG 08/27/24 1633 MR#: [id number] Acct: [id number] Name: CAROL ZARAGOZA Rep #: [id number] : 1950 74 From: Mil Snyder MD Attending Dr: Dr. Christofer Espino DO Status : ADM IN Ordering Dr: Huber Ballard MD Date: 08/27/24 Location: [facility] Sex: F C Admitted: 08/27/24 Test Reason : Blood Pressure : */* mmHG Vent. Rate : 111 BPM Atrial Rate : 111 BPM P-R Int : 144 ms QRS Dur : 68 ms QT Int : 318 ms P-R-T Axes : 67 -29 63 degrees QTcB Int : 432 ms Sinus tachycardia Low voltage QRS Borderline ECG Confirmed by Mil Snyder ([id number]), play back operator GEGE COSTELLO ([id number]) on 08/28/2024 10:15:17 AM Referred By: Confirmed By: Mil Snyder 08/28/24 1015 Date Mil Snyder MD CC: Dr. Christofer Espino DO; Dr. Harish Luis MD; Dr. Huber Ballard MD Signed Normal [facility] Absolute lymphocyte countOrd ered By: Huber Ballard on 08-27-2024 Lymphocytes Auto (Unsp spec) [#/Vol] 0.45 10*3/uL Low 0.83-4.51 [facility] Absolute neutrophil countOrd ered By: Huber Ballard on 08-27-2024 Neutrophils (Bld) [#/Vol] 5.6 10*3/uL 2.0-7.7 [facility] Activated partial thrombopla stin time (aPTT) in platelet poor plasma by coagulation aOrdered By: Huber Ballard on 08-27-2024 aPTT Coag (PPP) [Time] 36.4 s High 24.1-36.2 [facility] Anion gap in Serum or Plasma Ordered By: Huber Goldo on 08-27-2024 Anion gap [Moles/Vol] 11 mmol/L 5-15 [facility] Automated blood erythrocyte countOrdered By: Huberyandel Goldo on 08-27-2024 RBC (Bld) [#/Vol] 3.82 10*6/uL Low 4.2-5.4 [facility] Comment on above: Performed By: #### L 801.1543, L505.5000, L801.1541 #### [facility] Laboratory [address] [place], [place], [address] Automated blood hematocrit ( percentage)Ordered By: Huberyandel Goldo on 08-27-2024 Hematocrit (Bld) [Volume fraction] 36.2 % Low 37-47 [facility] Comment on above: Performed By: #### L 801.1543, L505.5000, L801.1541 #### [facility] [address] [place], [place], [address] Automated lymphocyte count a s percentage of total leukocytesOrdered By: Huber Goldo on 08-27-2024 Lymphocytes/100 WBC Auto (Unsp spec) 7.0 % Low 19-41 [facility] BUN/creatinine ratioOrdered By: Huberyadnel Goldo on 08-27-2024 Urea nitrogen/Creatinine [Mass ratio] 12.2 mg/mg 10-20 [facility] Basophil percentageOrdered B y: Huber Goldo on 08-27-2024 Basophils/100 WBC (Bld) 0.5 % Normal 0-1 [facility] Comment on above: Performed By: #### L 801.1543, L505.5000, L801.1541 #### [facility] [address] [place], [address] Bilirubin Test strip Ql (U)O rdered By: Huber Ballard on 08-27-2024 Bilirubin Ql (U) Negative Negative [facility] Bilirubin, totalOrdered By: Huber Ballard on 08-27-2024 Bilirubin [Mass/Vol] 0.24 mg/dL Normal 0.00-1.30 [facility] Comment on above: Performed By: #### L 801.1543, L505.5000, L801.1541 #### [facility] [address] [place], [address] CBC W/Diff, Automatedon 08-17 Absolute Lymph 0.45 X10 3/uL Low 0.83-4.51 [facility] Comment on above: Performed By: #### L 801.1543, L505.5000, L801.1541 #### [facility] [address] [place], [address] Absolute Neut 5.6 X10 3/uL Normal 2.0-7.7 [facility] Comment on above: Performed By: #### L 801.1543, L505.5000, L801.1541 #### [facility] [address] [place], [address] IG% 0.300 Normal 0.0-0.9 [facility] Comment on above: Result Comment: IG% - Immature Granulocytes (promyelocytes, myelocytes and metamyelocytes) > 1% indicates that a LEFT SHIFT is Present. Performed By: #### L 801.1543, L505.5000, L801.1541 #### [facility] [address] [place], [address] Lymphocytes/100 WBC (Bld) 7.0 % Low 19-41 [facility] Comment on above: Performed By: #### L 801.1543, L505.5000, L801.1541 #### [facility] [address] [place], [address] Nucleated RBC (Bld) [#/Vol] 0 10*3/uL Normal 0-5 [facility] Comment on above: Performed By: #### L 801.1543, L505.5000, L801.1541 #### [facility] [address] [place], [address] RDW SD 46.5 fl High 35.1-43.9 [facility] Comment on above: Performed By: #### L 801.1543, L505.5000, L801.1541 #### [facility] [address] [place], [address] Carbon dioxide, total [Moles /volume] in Central venous bloodOrdered By: Huber Ballard on 08-27-2024 CO2 [Moles/Vol] 22.4 mmol/L Normal 21.0-32.0 [facility] Comment on above: Performed By: #### L 801.1543, L505.5000, L801.1541 #### [facility] [address] [place], [address] Chest 1 View (Portable)on Chest 1 View (Portable) [facility] Imaging Services [address] [place] [address] Chest 1 View (Portable) MR#: [id number] Acct: [id number] Name: CAROL ZARAGOZA Rep #: [id number] : 1950 F 74 From: Patricia Rivero PCP: Dr. Harish Luis MD Status: REG ER Study: Chest 1 View (Portable) Date of Exam: 08/27/24 Exam# [id number] Ordering Dr: Huber Ballard MD PROCEDURE: CHEST 1 VIEW (PORTABLE) [...] lower lobe. Otherwise grossly unchanged Reading Location: [id number] CC: Dr. Harish Luis MD; Dr. Huber Ballard MD Play Back Operator: Signed Normal [facility] Chloride assayOrdered By: Mlacom Ballard on 08-27-2024 Chloride [Moles/Vol] 102 mmol/L Normal 98-108 [facility] Comment on above: Performed By: #### L 801.1543, L505.5000, L801.1541 #### [facility] Laboratory [address] [facility] [address] Comprehensive Metabolic Prof ilon 08-27-2024 ALK PHOS 97 U/L Normal 35-104 [facility] Comment on above: Performed By: #### L 801.1543, L505.5000, L801.1541 #### [facility] [address] [place], [address] BUN/CRE 12.2 RATIO Normal 10-20 [facility] Comment on above: Performed By: #### L 801.1543, L505.5000, L801.1541 #### [facility] [address] [place], [address] ECRCL 35.35 ml/min Low 50-250 [facility] Comment on above: Performed By: #### L 801.1543, L505.5000, L801.1541 #### [facility] [address] [place], [address] GAP 11 Normal 5-15 [facility] Comment on above: Performed By: #### L 801.1543, L505.5000, L801.1541 #### [facility] Laboratory [address] [place], [address] Potassium [Moles/Vol] 4.3 mmol/L Normal 3.3-5.1 [facility] Comment on above: Result Comment: Hemo lysis present, Results??could be affected. ?? Performed By: #### L 801.1543, L505.5000, L801.1541 #### [facility] [address] [place], [address] T PROT 6.6 g/dL Normal 5.9-8.4 [facility] Comment on above: Performed By: #### L 801.1543, L505.5000, L801.1541 #### [facility] [address] [place], [address] Comprehensive Metabolic Prof ilOrdered By: Huber Ballard on 08-27-2024 AST [Catalytic activity/Vol] 53 U/L High <=31 [facility] Comment on above: Hemolysis present, R esults could be affected. Result Comment: Hemo lysis present, Results??could be affected. ?? Performed By: #### L 801.1543, L505.5000, L801.1541 #### [facility] [address] [place], [address] Emergency Department Summary on 08-27-2024 Emergency Department Summary [facility] Medical Records Department [address] [place] [address] Emergency Department Summary 08/27/24 MR#: [id number] Acct: [id number] Name: CAROL ZARAGOZA Rep #: [id number] : 1950 74 From: Huber Ballard MD PCP: Dr. Harish Luis MD Status:REG ER Location: ED ADDENDUM by Dr. Huber Ballard MD on 08/27/24 at 1851 Sinus tachycardia rate of 111. [place] interval 144 ms cures duration 68 ms. QT duration 218 ms. [place] is normal. She has evidence of low voltage. There is no acute ischemic changes noted. EKG was performed at 1633 08/27/24 1851 Cosigner Signature (if applicable): cc: Dr. Harish Luis MD * Signed HPI History of Present Illness Chief [...] on 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 and omeprazole for GERD. She also is on antidepressants. Patient brought in because of confusion. Patient was brought to the ER by her because of confusion. She does endorse moist cough. She does endorse shortness of breath with walking across the room. She complains of bifrontal headache. She denies light sensitivity neck pain or neck stiffness. She is not aware that she has [...] sides Chronic lower back pain Home Medications ???Medication ???Instructions ???Recorded ???Last Taken ???Type buspirone 7.5 mg tablet 7.5 mg PO BID ANXIETY 02/17/2011/08 History clonazepam 1 mg tablet 1 mg PO TID ANXIETY 02/17/2004/26 History doxepin 150 mg capsule 150 mg PO QHS ANXIETY 07/30/23 Unk nown History metoprolol succinate 25 mg 25 mg PO DAILY BLOOD PRESSURE 07/17 06/09 Unknown History tablet,extended release 24 hr omeprazole 20 mg capsule,delayed 20 mg PO DAILY GERD 07/30/23 Unkno wn History release apixaban 5 mg tablet (Eliquis) 5 mg PO BID blood thinner 01/03/24 Unknown History doxycycline monohydrate 100 mg 100 mg PO BID #14 tabs 01/04/24 Un known Rx tablet Allergy/AdvReac Type Severity Reaction Status [...] rhinorrhea or sore throat Cardiovascular Cardiovascular: Denies ches (more content not included)... Normal [facility] Eosinophil percentageOrdered By: Huber Ballard on 08-27-2024 Eosinophils/100 WBC (Bld) 0.2 % Normal 0-5 [facility] Comment on above: Performed By: #### L 801.1543, L505.5000, L801.1541 #### [facility] Laboratory [address] [place], [address] Erythrocyte distribution wid th ratioOrdered By: Huber Ballard on 08-27-2024 Erythrocyte distribution width (RBC) [Ratio] 13.2 % Normal 11.6-14.6 [facility] Comment on above: Performed By: #### L 801.1543, L505.5000, L801.1541 #### [facility] Laboratory [address] [place], [address] Erythrocyte distribution wid th standard deviationOrdered By: Huber Ballard on 08-27-2024 Erythrocyte distribution width (RBC) [Ratio] 46.5 fl High 35.1-43.9 [facility] Glomerular filtration rate ( GFR) estimation/1.73 sq m using serum, plasma, or whole bOrdered By: Huber Ballard on 08-27-2024 GFR/1.73 sq M.predicted among non-blacks MDRD (S/P/Bld) [Vol rate/Area] 54 mL/min/{1.73_m2} Low >60 [facility] Comment on above: mL/min/1.73m2 CKD-EP I Creatinine Equation (2020) Result Comment: mL/m in/1.73m2 CKD-EPI Creatinine Equation (2020) Performed By: #### L 801.1543, L505.5000, L801.1541 #### [facility] Laboratory [address] [place], [address] H AND P Exam - Hospitaliston 08-27-2024 H&P Exam - Hospitalist [facility] Medical Records Department [address] [place] [address] H P Exam - Hospitalist 08/27/24 1712 MR#: [id number] Acct: [id number] Name: CAROL ZARAGOZA Rep #: [id number] : 1950 74 From: Christofer Espino DO PCP: Dr. Harish Luis MD Status:ADM IN Location: [facility] [id number] HPI - General General Date of Admission: 08/27/24 Date of Service: 08/27/24 Chief Complaint: Fever and cough with confusion HPI Narrative CAROL ZARAGOZA, is a 74 F who presented to [facility] ED on 08/27/2024 with fevers, cough and confusion. Patient lives at home with her . He noticed that she was having fevers with a moist nonproductive cough over the past few days and steadily became more confused. She was hospitalized here back in December for a somewhat similar presentation. Was found to have an aspiration pneumonitis at that time. Noted to have some degree of chronic oropharyngeal dysphagia. Modified barium swallow study was done then that showed mild to moderate oropharyngeal dysphagia and concern for esophageal dysphagia. However, patient improved quickly then and was able to be discharged home hospital day 2 without GI evaluation. On arrival to the ED patient was febrile to 103.2F and tachycardic to the 110s. Her respiratory rate was increased in the high 20s to low 30s but she was satting in the low to mid 90s on room air. Chest x-ray showed mild increased patchy opacities in both the right and left lower lobes concerning for pneumonia. She was started on IV antibiotics and hospitalist was contacted for admission. I saw the patient at bedside in the ED, was present. Patient was alert and making appropriate eye contact. She was able to tell me that she was at [facility] and that the year was 2024. She did not know the month. She was insisting to me that she wanted to go home and take care of the infection at home, but she had very poor insight into her current medical condition. Her at bedside noted that she was not at her baseline and had been very confused over the past few days. It was determined that she lacked medical capacity for decision-making. She did report a wet cough and has been noted that she has had issues with choking in the past. Will be admitted for further management. [facility] Medical History (Updated 08/28/24 @ 07:[address] Christofer Espino DO) Aspiration pneumonia Hypoxia Fracture of humeral head [place] Pulmonary emboli Hypoxia Closed head injury Anxiety and depression Cervical [...] sides Chronic lower back pain Home Medications ???Medication ???Instructions ???Recorded ???Last Taken ???Type buspirone 7.5 mg tablet 7.5 mg PO BID ANXIETY 02/17/2011/08 History clonazepam 1 mg tablet 1 mg PO TID ANXIETY 02/17/2004/26 History doxepin 150 mg capsule 150 mg PO QHS ANXIETY 07/30/23 Unk nown History omeprazole 20 mg capsule,delayed 20 mg PO DAILY GERD 07/30/23 Unkno wn History release Allergy/AdvReac Type Severity Reaction Status Date / [...] history: Currently ambulating with a cane ROS Constitutional Constitutional: Reports chills, fatigue, fever(s) and weakness Eyes Eyes: Denies change in vision Cardiovascular Car (more content not included)... Normal [facility] Hemoglobin measurementOrdere d By: Huber Ballard on 08-27-2024 Hemoglobin (Bld) [Mass/Vol] 12.1 g/dL Normal 12.0-15.0 [facility] Comment on above: Performed By: #### L 801.1543, L505.5000, L801.1541 #### [facility] Laboratory [address] [place], [address] Immature granulocytes/100 WB C Auto (Bld)Ordered By: Huber Ballard on 08-27-2024 Immature granulocytes/100 WBC (Bld) 0.300 % 0.0-0.9 [facility] Comment on above: IG% - Immature Granu locytes (promyelocytes, myelocytes and metamyelocytes) > 1% indicates that a LEFT SHIFT is Present. International normalized rat io (INR) calculationOrdered By: Huber Ballard on 08-27-2024 INR Coag (Bld) [Relative time] 1.0 {INR} [facility] Ketones Test strip Ql (U)Ord ered By: Huber Ballard on 08-27-2024 Ketones Ql (U) Negative Negative [facility] Lactic acid measurementOrder ed By: Huber Ballard on 08-27-2024 Lactate [Moles/Vol] 1.1 mmol/L Normal 0.0-2.0 [facility] Comment on above: Order Comment: [id number] TRAMADOL Performed By: #### L 801.1543, L505.5000, L801.1541 #### [facility] Laboratory [address] [place], [address] MCV (mean corpuscular volume ) determinationOrdered By: Huber Ballard on 08-27-2024 MCV (RBC) [Entitic vol] 94.8 fL Normal 81-99 [facility] [facility] Comment on above: Performed By: #### L 801.1543, L505.5000, L801.1541 #### [facility] [address] [place], [address] Mean corpuscular hemoglobin (MCH) determinationOrdered By: Huber Ballard on 08-27-2024 MCH (RBC) [Entitic mass] 31.7 pg Normal 27.0-32.0 [facility] Comment on above: Performed By: #### L 801.1543, L505.5000, L801.1541 #### [facility] [address] [place], [place], [id number] Mean corpuscular hemoglobin concentration (MCHC) determinationOrdered By: Huber Ballard on 08-27-2024 MCHC (RBC) [Mass/Vol] 33.4 g/dL Normal 32-36 [facility] Comment on above: Performed By: #### L 801.1543, L505.5000, L801.1541 #### [facility] [address] [place], [address] Mean platelet volume determi nationOrdered By: Huber Ballard on 08-27-2024 Platelet mean volume (Bld) [Entitic vol] 9.6 fL Normal 6.2-12.0 [facility] Comment on above: Performed By: #### L 801.1543, L505.5000, L801.1541 #### [facility] [address] [place], [place], [id number] Microscopic analysis of urin e for red blood cells (RBC)Ordered By: Huber Ballard on 08-27-2024 Microscopic analysis of urine for red blood cells (RBC) 0-5 SEEN /hpf 0-5 [facility] Monocyte percentageOrdered B y: Huber Ballard on 08-27-2024 Monocytes/100 WBC (Bld) 5.1 % Normal 0-10 [facility] Comment on above: Performed By: #### L 801.1543, L505.5000, L801.1541 #### [facility] [address] [place], [address] Mucus LM Ql (Urine sed)Order ed By: Huber Ballard on 08-27-2024 Mucus Ql (Urine sed) 0 SEEN /hpf [facility] Neutrophil percentageOrdered By: Huber Ballard on 08-27-2024 Neutrophils/100 WBC (Bld) 86.9 % High 47-70 [facility] Comment on above: Performed By: #### L 801.1543, L505.5000, L801.1541 #### [facility] [address] [place], [address] Nitrite Test strip Ql (U)Ord ered By: Huber Goldo on 08-27-2024 Nitrite Ql (U) Negative Negative [facility] Nucleated red blood cell per centageOrdered By: Huber Goldo on 08-27-2024 Nucleated RBC/100 WBC (Bld) [Ratio] 0 % 0-5 [facility] Partial Thromboplast Timeon 08-27-2024 aPTT Coag (Bld) [Time] 36.4 s High 24.1-36.2 [facility] Comment on above: Performed By: #### L 801.1543, L505.5000, L801.1541 #### [facility] [address] [place], [address] Platelet countOrdered By: Malcom yandel Goldo on 08-27-2024 Platelets (Bld) [#/Vol] 332 10*3/uL Normal 150-450 [facility] Comment on above: Performed By: #### L 801.1543, L505.5000, L801.1541 #### [facility] [address] [place], [address] Potassium measurement (mass/ volume)Ordered By: Huber Goldo on 08-27-2024 Potassium (Unsp spec) [Mass/Vol] 4.3 mmol/L 3.3-5.1 [facility] Comment on above: Hemolysis present, R esults could be affected. Protein Test strip Ql (U)Ord ered By: Huber Goldo on 08-27-2024 Protein Ql (U) 30 mg/dl High Negative [facility] Prothrombin Time w/INRon INR Coag (PPP) [Relative time] 1.0 {INR} Normal [facility] Comment on above: Performed By: #### L 801.1543, L505.5000, L801.1541 #### [facility] [address] [place], [address] Prothrombin timeOrdered By: Huber Ballard on 08-27-2024 PT Coag (PPP) [Time] 13.4 s Normal 11.7-14.9 [facility] Comment on above: Performed By: #### L 801.1543, L505.5000, L801.1541 #### [facility] [address] [place], [address] Serum creatinine measurement (mass/volume)Ordered By: Huber Ballard on 08-27-2024 Creatinine [Mass/Vol] 1.08 mg/dL Normal 0.70-1.20 [facility] Comment on above: Performed By: #### L 801.1543, L505.5000, L801.1541 #### [facility] [address] [place], [address] Serum globulin measurementOr dered By: Huber Ballard on 08-27-2024 Globulin (S) [Mass/Vol] 3.3 g/dL Normal 2.2-4.2 [facility] Comment on above: Performed By: #### L 801.1543, L505.5000, L801.1541 #### [facility] [address] [place], [address] Serum glucose measurement (m ass/volume)Ordered By: Huber Ballard on 08-27-2024 Glucose [Mass/Vol] 91 mg/dL Normal 70-99 [facility] Comment on above: Performed By: #### L 801.1543, L505.5000, L801.1541 #### [facility] [address] [place], [address] Serum or plasma alanine soliz otransferase (ALT) measurementOrdered By: Huber Ballard on 08-27-2024 ALT [Catalytic activity/Vol] 19 U/L Normal <=34 [facility] Comment on above: Hemolysis present, R esults could be affected. Result Comment: Hemo lysis present, Results??could be affected. ?? Performed By: #### L 801.1543, L505.5000, L801.1541 #### [facility] [address] [place], [address] Serum or plasma albumin rosangela urement (mass/volume)Ordered By: Huber Ballard on 08-27-2024 Albumin [Mass/Vol] 3.3 g/dL Low 3.4-4.8 [facility] Comment on above: Performed By: #### L 801.1543, L505.5000, L801.1541 #### [facility] [address] [place], [address] Serum or plasma albumin/glob ulin mass ratioOrdered By: Huber Ballard on 08-27-2024 Albumin/Globulin [Mass ratio] 1.0 {ratio} Normal 0.9-2.4 [facility] Comment on above: Performed By: #### L 801.1543, L505.5000, L801.1541 #### [facility] [address] [place], [address] Serum or plasma alkaline faustino sphatase measurementOrdered By: Huber Ballard on 08-27-2024 ALP [Catalytic activity/Vol] 97 U/L 35-104 [facility] Serum or plasma calcium rosangela urement (mass/volume)Ordered By: Huber Ballard on 08-27-2024 Calcium [Mass/Vol] 8.4 mg/dL Normal 7.6-11.0 [facility] Comment on above: Performed By: #### L 801.1543, L505.5000, L801.1541 #### [facility] [address] [place], [address] Serum or plasma urea nitroge n measurement (mass/volume)Ordered By: Huber Ballard on 08-27-2024 Urea nitrogen [Mass/Vol] 13 mg/dL Normal 4-19 [facility] Comment on above: Performed By: #### L 801.1543, L505.5000, L801.1541 #### [facility] [address] [place], [address] Sodium levelOrdered By: Huber Ballard on 08-27-2024 Sodium [Moles/Vol] 136 mmol/L Normal 133-145 [facility] Comment on above: Performed By: #### L 801.1543, L505.5000, L801.1541 #### [facility] [address] [place], [address] Squamous epithelial cells de tection in urine sediment by light microscopyOrdered By: Huber Ballard on 08-27-2024 Epithelial cells.squamous LM Ql (Urine sed) 0-5 SEEN /hpf 5-10 [facility] Total proteinOrdered By: Huber Ballard on 08-27-2024 Protein [Mass/Vol] 6.6 g/dL 5.9-8.4 [facility] Urinalysis, Completeon 08-27 BACTERIA RARE Normal None Seen [facility] Comment on above: Order Comment: [id number] TRAMADOL Performed By: #### L 801.1543, L505.5000, L801.1541 #### [facility] [address] [place], [address] EPI,SQUAMOUS 0-5 SEEN Normal 5-10 [facility] Comment on above: Order Comment: [id number] TRAMADOL Performed By: #### L 801.1543, L505.5000, L801.1541 #### [facility] [address] [place], [address] RBC 0-5 SEEN Normal 0-5 [facility] Comment on above: Order Comment: [id number] TRAMADOL Performed By: #### L 801.1543, L505.5000, L801.1541 #### [facility] [address] [place], [address] YEAST 2+ /hpf Normal None Seen [facility] Comment on above: Order Comment: [id number] TRAMADOL Performed By: #### L 801.1543, L505.5000, L801.1541 #### [facility] [address] [place], [address] WBC 5-10 SEEN Normal 0-5 [facility] Comment on above: Order Comment: [id number] TRAMADOL Performed By: #### L 801.1543, L505.5000, L801.1541 #### [facility] [address] [place], [address] Mucus Ql (Urine sed) 0 SEEN Normal [facility] Comment on above: Order Comment: [id number] TRAMADOL Performed By: #### L 801.1543, L505.5000, L801.1541 #### [facility] [address] [place], [address] Urine Legionella pneumophila antigen detectionOrdered By: Christofer Espino on 08-27-2024 L. pneumophila Ag Ql (U) [facility] Urine clarityOrdered By: Huber Ballard on 08-27-2024 Clarity (U) Sl Cldy Clear [facility] Urine color determinationOrd ered By: Huber Ballard on 08-27-2024 Color (U) Yellow Yellow [facility] Urine glucose detectionOrder ed By: Huber Ballard on 08-27-2024 Glucose Ql (U) Normal mg/dl Normal [facility] Urine leukocyte esterase det ection by dipstickOrdered By: Huber Ballard on 08-27-2024 Leukocyte esterase Test strip Ql (U) Negative Negative [facility] Urine pHOrdered By: Huber santamaria on 08-27-2024 pH (U) 6.0 [pH] 5.0 - 8.0 [facility] Urine sediment bacteria coun t by microscopy (number/high power field)Ordered By: Huber Ballard on 08-27-2024 Bacteria LM.HPF (Urine sed) [#/Area] RARE /hpf None Seen [facility] Urine sediment yeast count b y microscopy (number/high powered field)Ordered By: Huber Ballard on 08-27-2024 Yeast LM.HPF (Urine sed) [#/Area] 2 /[HPF] None Seen [facility] Urine specific gravity measu rementOrdered By: Huber Ballard on 08-27-2024 Specific gravity (U) [Rel density] 1.015 1.002-1.03 0 [facility] Urine urobilinogen measureme ntOrdered By: Huber Ballard on 08-27-2024 Urobilinogen Ql (U) Normal mg/dl Normal [facility] White blood cell (WBC) count Ordered By: Huber Ballard on 08-27-2024 WBC (Bld) [#/Vol] 6.5 10*3/uL Normal 4.4-11.0 [facility] Comment on above: Performed By: #### L 801.1543, L505.5000, L801.1541 #### [facility] [place], [address] White blood cell countOrdere d By: Huber Ballard on 08-27-2024 White blood cell count 5-10 SEEN /hpf 0-5 [facility] Absolute lymphocyte countOrd ered By: Harish Luis on 07-15-2024 Lymphocytes Auto (Unsp spec) [#/Vol] 1.65 10*3/uL 0.83-4.51 [facility] Absolute neutrophil countOrd ered By: Harish Luis on 07-15-2024 Neutrophils (Bld) [#/Vol] 4.2 10*3/uL 2.0-7.7 [facility] Anion gap in Serum or Plasma Ordered By: Harish Luis on 07-15-2024 Anion gap [Moles/Vol] 10 mmol/L 5-15 [facility] Automated lymphocyte count a s percentage of total leukocytesOrdered By: Harish Luis on 07-15-2024 Lymphocytes/100 WBC Auto (Unsp spec) 25.3 % 19-41 [facility] BUN/creatinine ratioOrdered By: Harish Luis on 07-15-2024 Urea nitrogen/Creatinine [Mass ratio] 8.0 mg/mg Low 10-20 [facility] Basophil percentageOrdered B y: Harish Luis on 07-15-2024 Basophils/100 WBC (Bld) 0.6 % 0-1 [facility] Bilirubin, totalOrdered By: Harish Luis on 07-15-2024 Bilirubin [Mass/Vol] 0.25 mg/dL 0.00-1.30 [facility] Brain/Head without Contrasto n 07-15-2024 Brain/Head without Contrast [facility] Imaging Services [address] [place] [address] Brain/Head without Contrast MR#: [id number] Acct: [id number] Name: CAROL ZARAGOZA Rep #: [id number] : 1950 F 74 From: Celso soliz MD PCP: Dr. Harish Luis MD Status: REG CLI Study: Brain/Head without Contrast Date of Exam: 06/18 12/11 Exam# [id number] Ordering Dr: Ghazal Ledesma MD PROCEDURE: BRAIN/HEAD WITHOUT CONTRAST 07/15/2024 REASON FOR EXAM: UNSPECIFIED INJURY OF HEAD, INITIAL ENCOUNTER TECHNIQUE: Head CT without intravenous contrast. Coronal and Sagittal reconstruction series were provided. One or more dose reduction techniques were used (e.g., Automated exposure control, adjustment of the mA and/or kV according to patient size, use of iterative reconstruction technique. COMPARISON: CT brain 03/31/2024 FINDINGS: No acute intracranial hemorrhage, mass, mass effect, midline shift or pathologic extra-axial fluid collection. Mild parenchymal atrophy with commensurate increase in CSF containing spaces. Patchy white matter hypodensities, patient demographics favor chronic microvascular ischemic changes. Paranasal sinuses and mastoid air cells are clear. The calvarium is grossly intact. CT/Brain/Head without Contrast IMPRESSION: No acute intracranial abnormality. Chronic microvascular ischemia and involutional changes. Reading Location: [facility] CC: Dr. Ghazal Ledesma MD; Dr. Harish Luis MD Play Back Operator: Signed Normal [facility] CBC W/Diff, Automatedon 06-18 Absolute Lymph 1.65 X10 3/uL Normal 0.83-4.51 [facility] Comment on above: Performed By: #### L 801.1543, L505.5000, L801.1541 #### [facility] [address] [place], [address] Absolute Neut 4.2 X10 3/uL Normal 2.0-7.7 [facility] Comment on above: Performed By: #### L 801.1543, L505.5000, L801.1541 #### [facility] [address] [place], [address] Basophils/100 WBC (Bld) 0.6 % Normal 0-1 [facility] Comment on above: Performed By: #### L 801.1543, L505.5000, L801.1541 #### [facility] [address] [place], [address] Eosinophils/100 WBC (Bld) 1.8 % Normal 0-5 [facility] Comment on above: Performed By: #### L 801.1543, L505.5000, L801.1541 #### [facility] [address] [place], [address] Erythrocyte distribution width (RBC) [Ratio] 13.9 % Normal 11.6-14.6 [facility] Comment on above: Performed By: #### L 801.1543, L505.5000, L801.1541 #### [facility] [address] [place], [address] Hematocrit (Bld) [Volume fraction] 35.2 % Low 37-47 [facility] Comment on above: Performed By: #### L 801.1543, L505.5000, L801.1541 #### [facility] [address] [place], [address] Hemoglobin (Bld) [Mass/Vol] 11.6 g/dL Low 12.0-15.0 [facility] Comment on above: Performed By: #### L 801.1543, L505.5000, L801.1541 #### [facility] [address] [place], [address] IG% 0.600 Normal 0.0-0.9 [facility] Comment on above: Result Comment: IG% - Immature Granulocytes (promyelocytes, myelocytes and metamyelocytes) > 1% indicates that a LEFT SHIFT is Present. Performed By: #### L 801.1543, L505.5000, L801.1541 #### [facility] [address] [place], [address] Lymphocytes/100 WBC (Bld) 25.3 % Normal 19-41 [facility] Comment on above: Performed By: #### L 801.1543, L505.5000, L801.1541 #### [facility] [address] [place], [address] MCH (RBC) [Entitic mass] 32.6 pg High 27.0-32.0 [facility] Comment on above: Performed By: #### L 801.1543, L505.5000, L801.1541 #### [facility] [address] [place], [address] MCHC (RBC) [Mass/Vol] 33.0 g/dL Normal 32-36 [facility] Comment on above: Performed By: #### L 801.1543, L505.5000, L801.1541 #### [facility] [address] [place], [address] MCV (RBC) [Entitic vol] 98.9 fL Normal 81-99 [facility] Comment on above: Performed By: #### L 801.1543, L505.5000, L801.1541 #### [facility] [address] [place], [address] Monocytes/100 WBC (Bld) 6.6 % Normal 0-10 [facility] Comment on above: Performed By: #### L 801.1543, L505.5000, L801.1541 #### [facility] [address] [place], [address] Neutrophils/100 WBC (Bld) 65.1 % Normal 47-70 [facility] Comment on above: Performed By: #### L 801.1543, L505.5000, L801.1541 #### [facility] [address] [place], [address] Nucleated RBC (Bld) [#/Vol] 0 10*3/uL Normal 0-5 [facility] Comment on above: Performed By: #### L 801.1543, L505.5000, L801.1541 #### [facility] [address] [place], [address] Platelet mean volume (Bld) [Entitic vol] 9.5 fL Normal 6.2-12.0 [facility] Comment on above: Performed By: #### L 801.1543, L505.5000, L801.1541 #### [facility] [address] [place], [address] Platelets (Bld) [#/Vol] 415 10*3/uL Normal 150-450 [facility] Comment on above: Performed By: #### L 801.1543, L505.5000, L801.1541 #### [facility] [address] [place], [address] RBC (Bld) [#/Vol] 3.56 10*6/uL Low 4.2-5.4 [facility] Comment on above: Performed By: #### L 801.1543, L505.5000, L801.1541 #### [facility] [address] [place], [address] RDW SD 51.2 fl High 35.1-43.9 [facility] Comment on above: Performed By: #### L 801.1543, L505.5000, L801.1541 #### [facility] [address] [place], [address] WBC (Bld) [#/Vol] 6.5 10*3/uL Normal 4.4-11.0 [facility] Comment on above: Performed By: #### L 801.1543, L505.5000, L801.1541 #### [facility] [address] [place], [address] Calculated very low density lipoprotein (VLDL) cholesterol measurementOrdered By: Harish Luis on 07-15-2024 Calculated very low density lipoprotein (VLDL) cholesterol measurement 15 mg/dL 5-40 [facility] Carbon dioxide, total [Moles /volume] in Central venous bloodOrdered By: Harish Luis on 07-15-2024 CO2 [Moles/Vol] 23.6 mmol/L 21.0-32.0 [facility] Chloride assayOrdered By: Levar Luis on 07-15-2024 Chloride [Moles/Vol] 109 mmol/L High 98-108 [facility] Comprehensive Metabolic Prof ilon 07-15-2024 Albumin [Mass/Vol] 3.2 g/dL Low 3.4-4.8 [facility] Comment on above: Performed By: #### L 801.1543, L505.5000, L801.1541 #### [facility] [address] [place], [address] Albumin/Globulin [Mass ratio] 1.0 {ratio} Normal 0.9-2.4 [facility] Comment on above: Performed By: #### L 801.1543, L505.5000, L801.1541 #### [facility] [address] [place], [address] ALK PHOS 100 U/L Normal 35-104 [facility] Comment on above: Performed By: #### L 801.1543, L505.5000, L801.1541 #### [facility] [address] [place], [address] ALT [Catalytic activity/Vol] 10 U/L Normal <=34 [facility] Comment on above: Performed By: #### L 801.1543, L505.5000, L801.1541 #### [facility] [address] [place], [address] AST [Catalytic activity/Vol] 16 U/L Normal <=31 [facility] Comment on above: Performed By: #### L 801.1543, L505.5000, L801.1541 #### [facility] [address] [place], [address] Bilirubin [Mass/Vol] 0.25 mg/dL Normal 0.00-1.30 [facility] Comment on above: Performed By: #### L 801.1543, L505.5000, L801.1541 #### [facility] [address] [place], [address] BUN/CRE 8.0 RATIO Low 10-20 [facility] Comment on above: Performed By: #### L 801.1543, L505.5000, L801.1541 #### [facility] [address] [place], [address] Calcium [Mass/Vol] 8.9 mg/dL Normal 7.6-11.0 [facility] Comment on above: Performed By: #### L 801.1543, L505.5000, L801.1541 #### [facility] [address] [place], [address] Chloride [Moles/Vol] 109 mmol/L High 98-108 [facility] Comment on above: Performed By: #### L 801.1543, L505.5000, L801.1541 #### [facility] [address] [place], [address] CO2 [Moles/Vol] 23.6 mmol/L Normal 21.0-32.0 [facility] Comment on above: Performed By: #### L 801.1543, L505.5000, L801.1541 #### [facility] [address] [place], [address] Creatinine [Mass/Vol] 0.97 mg/dL Normal 0.70-1.20 [facility] Comment on above: Performed By: #### L 801.1543, L505.5000, L801.1541 #### [facility] [address] [place], [address] GAP 10 Normal 5-15 [facility] Comment on above: Performed By: #### L 801.1543, L505.5000, L801.1541 #### [facility] [address] [place], [address] GFR/1.73 sq M.predicted among non-blacks MDRD (S/P/Bld) [Vol rate/Area] 61 mL/min/{1.73_m2} Normal >60 [facility] Comment on above: Result Comment: mL/m in/1.73m2 CKD-EPI Creatinine Equation (2020) Performed By: #### L 801.1543, L505.5000, L801.1541 #### [facility] [address] [place], [address] Globulin (S) [Mass/Vol] 3.1 g/dL Normal 2.2-4.2 [facility] Comment on above: Performed By: #### L 801.1543, L505.5000, L801.1541 #### [facility] [address] [place], [address] Glucose [Mass/Vol] 114 mg/dL High 70-99 [facility] Comment on above: Performed By: #### L 801.1543, L505.5000, L801.1541 #### [facility] [address] [place], [address] Potassium [Moles/Vol] 3.5 mmol/L Normal 3.3-5.1 [facility] Comment on above: Performed By: #### L 801.1543, L505.5000, L801.1541 #### [facility] [facility] [address] [place], [address] Sodium [Moles/Vol] 143 mmol/L Normal 133-145 [facility] Comment on above: Performed By: #### L 801.1543, L505.5000, L801.1541 #### [facility] [address] [place], [address] T PROT 6.3 g/dL Normal 5.9-8.4 [facility] Comment on above: Performed By: #### L 801.1543, L505.5000, L801.1541 #### [facility] [address] [place], [address] Urea nitrogen [Mass/Vol] 8 mg/dL Normal 4-19 [facility] Comment on above: Performed By: #### L 801.1543, L505.5000, L801.1541 #### [facility] [address] [place], [address] Eosinophil percentageOrdered By: Harish Luis on 07-15-2024 Eosinophils/100 WBC (Bld) 1.8 % 0-5 [facility] Erythrocyte distribution wid th ratioOrdered By: Harish Luis on 07-15-2024 Erythrocyte distribution width (RBC) [Ratio] 13.9 % 11.6-14.6 [facility] Erythrocyte distribution wid th standard deviationOrdered By: Harish Luis on 07-15-2024 Erythrocyte distribution width (RBC) [Ratio] 51.2 fl High 35.1-43.9 [facility] Glomerular filtration rate ( GFR) estimation/1.73 sq m using serum, plasma, or whole bOrdered By: Harish Luis on 07-15-2024 GFR/1.73 sq M.predicted among non-blacks MDRD (S/P/Bld) [Vol rate/Area] 61 mL/min/{1.73_m2} >60 [facility] Comment on above: mL/min/1.73m2 CKD-EP I Creatinine Equation (2020) Hematocrit Auto (Bld) [Volum e fraction]Ordered By: Harish Luis on 07-15-2024 Hematocrit (Bld) [Volume fraction] 35.2 % Low 37-47 [facility] Hemoglobin measurementOrdere d By: Harish Luis on 07-15-2024 Hemoglobin (Bld) [Mass/Vol] 11.6 g/dL Low 12.0-15.0 [facility] Immature granulocytes/100 WB C Auto (Bld)Ordered By: Harish Luis on 07-15-2024 Immature granulocytes/100 WBC (Bld) 0.600 % 0.0-0.9 [facility] Comment on above: IG% - Immature Granu locytes (promyelocytes, myelocytes and metamyelocytes) > 1% indicates that a LEFT SHIFT is Present. LDL calc ser/plasOrdered By: Harish Luis on 07-15-2024 Cholesterol in LDL [Mass/Vol] 151 mg/dL Normal [facility] Comment on above: Bjfnicqlsf=739-961 m g/dL & Higher Bvwk=091 mg/dL or greater Result Comment: Bord tdwstj=861-670 mg/dL Higher Wzrv=404 mg/dL or greater Performed By: #### L 801.1543, L505.5000, L801.1541 #### [facility] [address] [facility] [place], [address] Laboratory - Chemistry and C hemistry - challengeOrdered By: Harish Luis on 07-15-2024 AST [Catalytic activity/Vol] 16 U/L <32 [facility] Lipid Profileon 07-15-2024 CHOL:HDL 3.13 Normal [facility] Comment on above: Performed By: #### L 801.1543, L505.5000, L801.1541 #### [facility] [address] [place], [place], [id number] Cholesterol in VLDL [Mass/Vol] 15 mg/dL Normal 5-40 [facility] Comment on above: Performed By: #### L 801.1543, L505.5000, L801.1541 #### [facility] [address] [place], [place], [id number] MCV (mean corpuscular volume ) determinationOrdered By: Harish Luis on 07-15-2024 MCV (RBC) [Entitic vol] 98.9 fL 81-99 [facility] Mean corpuscular hemoglobin (MCH) determinationOrdered By: Harish Luis on 07-15-2024 MCH (RBC) [Entitic mass] 32.6 pg High 27.0-32.0 [facility] Mean corpuscular hemoglobin concentration (MCHC) determinationOrdered By: Harish Luis on 07-15-2024 MCHC (RBC) [Mass/Vol] 33.0 g/dL 32-36 [facility] Mean platelet volume determi nationOrdered By: Harish Luis on 07-15-2024 Platelet mean volume (Bld) [Entitic vol] 9.5 fL 6.2-12.0 [facility] Monocyte percentageOrdered B y: Harish Luis on 07-15-2024 Monocytes/100 WBC (Bld) 6.6 % 0-10 [facility] Neutrophil percentageOrdered By: Harish Luis on 07-15-2024 Neutrophils/100 WBC (Bld) 65.1 % 47-70 [facility] Nucleated red blood cell per centageOrdered By: Harish Luis on 07-15-2024 Nucleated RBC/100 WBC (Bld) [Ratio] 0 % 0-5 [facility] Platelet countOrdered By: Levar Luis on 07-15-2024 Platelets (Bld) [#/Vol] 415 10*3/uL 150-450 [facility] Potassium measurement (mass/ volume)Ordered By: Harish Luis on 07-15-2024 Potassium (Unsp spec) [Mass/Vol] 3.5 mmol/L 3.3-5.1 [facility] RBC Auto (Bld) [#/Vol]Ordere d By: Harish Luis on 07-15-2024 RBC (Bld) [#/Vol] 3.56 10*6/uL Low 4.2-5.4 [facility] Screening total cholesterol/ high density lipoprotein (HDL) cholesterol ratioOrdered By: Harish Luis on 07-15-2024 Cholesterol.total/Tamera sterol in HDL [Mass ratio] 3.13 {ratio} [facility] Serum creatinine measurement (mass/volume)Ordered By: Harish Luis on 07-15-2024 Creatinine [Mass/Vol] 0.97 mg/dL 0.70-1.20 [facility] Serum globulin measurementOr dered By: Harish Luis 07-15-2024 Globulin (S) [Mass/Vol] 3.1 g/dL 2.2-4.2 [facility] Serum glucose measurement (m ass/volume)Ordered By: Harish Luis 07-15-2024 Glucose [Mass/Vol] 114 mg/dL High 70-99 [facility] Serum or plasma alanine soliz otransferase (ALT) measurementOrdered By: Harish Luis 07-15-2024 ALT [Catalytic activity/Vol] 10 U/L <35 [facility] Serum or plasma albumin rosangela urement (mass/volume)Ordered By: Harish Luis 07-15-2024 Albumin [Mass/Vol] 3.2 g/dL Low 3.4-4.8 [facility] Serum or plasma albumin/glob ulin mass ratioOrdered By: Harish Luis 07-15-2024 Albumin/Globulin [Mass ratio] 1.0 {ratio} 0.9-2.4 [facility] Serum or plasma alkaline faustino sphatase measurementOrdered By: Harish Luis 07-15-2024 ALP [Catalytic activity/Vol] 100 U/L 35-104 [facility] Serum or plasma calcium rosangela urement (mass/volume)Ordered By: Harish Luis 07-15-2024 Calcium [Mass/Vol] 8.9 mg/dL 7.6-11.0 [facility] Serum or plasma cholesterol in HDL measurement (mass/volume)Ordered By: Harish Luis 07-15-2024 Cholesterol in HDL [Mass/Vol] 78 mg/dL Normal [facility] Comment on above: National Cholesterol Education Program (NCEP) guidelines:<40 mg/dL: Low HDL-cholesterol (major risk factor for CHD)>= 60 mg/dL: High HDL-cholesterol (negative risk factor for CHD)HDL-cholesterol is affected by a number of factors, e.g. smoking, exercise, hormones, sex and age. Result Comment: Breanna onal Cholesterol Education Program (NCEP) guidelines: <40 mg/dL: Low HDL-cholesterol (major risk factor for CHD) >= 60 mg/dL: High HDL-cholesterol (negative risk factor for CHD) HDL-cholesterol is affected by a number of factors, e.g. smoking, exercise, hormones, sex and age. Performed By: #### L 801.1543, L505.5000, L801.1541 #### [facility] [address] [facility] [id number] Serum or plasma cholesterol measurement (mass/volume)Ordered By: Harish Luis on 07-15-2024 Cholesterol [Mass/Vol] 245 mg/dL High <=200 [facility] Comment on above: Cholesterol level, D esirable <200 mg/dLBorderline high cholesterol 200-239 mg/dLHigh cholesterol >=240 mg/dLRecommendations of the NCEP Adult Treatment Panel for the following risk-cutoff thresholds for the [place] population. Result Comment: Chol esterol level, Desirable <200 mg/dL Borderline high cholesterol 200-239 mg/dL High cholesterol >=240 mg/dL Recommendations of the NCEP Adult Treatment Panel for the following risk-cutoff thresholds for the [place] population. Performed By: #### L 801.1543, L505.5000, L801.1541 #### [facility] [address] [place], [place], [id number] Serum or plasma urea nitroge n measurement (mass/volume)Ordered By: Harish Luis on 07-15-2024 Urea nitrogen [Mass/Vol] 8 mg/dL 4-19 [facility] Sodium levelOrdered By: Harish Luis on 07-15-2024 Sodium [Moles/Vol] 143 mmol/L 133-145 [facility] TSH DL <= 0.005 mIU/L QnOrde red By: Harish Luis on 07-15-2024 TSH Qn 0.847 uIU/mL 0.300-4.20 0 [facility] Thyroid Stim Hormone (TSH)on 07-15-2024 TSH 0.847 uIU/mL Normal 0.300-4.20 0 [facility] Comment on above: Performed By: #### L 801.1543, L505.5000, L801.1541 #### [facility] [address] [facility] [address] [place], [place], [address] Total proteinOrdered By: Harish Luis on 07-15-2024 Protein [Mass/Vol] 6.3 g/dL 5.9-8.4 [facility] Triglycerides measurementOrd ered By: Harish Toby on 07-15-2024 Triglyceride [Mass/Vol] 77 mg/dL Normal [facility] Comment on above: The drugs N-Acetylcy steine and Metamizole may falsely depress this assay. Normal range: <150 mg/dLBorderline High: 150-199 mg/dLHigh: 200-499 mg/dLVery High: >500 mg/dL Result Comment: The drugs N-Acetylcysteine and Metamizole may falsely depress this assay. Normal range: <150 mg/dL Borderline High: 150-199 mg/dL High: 200-499 mg/dL Very High: >500 mg/dL Performed By: #### L 801.1543, L505.5000, L801.1541 #### [facility] [address] [place], [address] Vitamin D,25 Hydroxyon 07-15 Vitamin D 25-OH 46.3 ng/mL Normal 30-100 [facility] Comment on above: Result Comment: Amalia min D Status Deficiency: <20 ng/mL (50nmol/L) Insufficiency: 20-30 ng/mL (50-75 nmol/L) Sufficiency: 30-100 ng/mL (75-250 nmol/L) Toxicity: >100 ng/mL (>250 nmol/L) Performed By: #### L 801.1543, L505.5000, L801.1541 #### [facility] [address] [place], [address] White blood cell (WBC) count Ordered By: Harish Luis on 07-15-2024 WBC (Bld) [#/Vol] 6.5 10*3/uL 4.4-11.0 [facility] Emergency Department Summary on 06-04-2024 Emergency Department Summary [facility] Medical Records Department [address] [place] [address] Emergency Department Summary 06/04/24 MR#: [id number] Acct: [id number] Name: CAROL ZARAGOZA Rep #: [id number] : 1950 74 From: Irving White DO PCP: Dr. Harish Luis MD Status:DEP ER Location: ED HPI History of Present Illness Chief Complaint: Upper Extremity Injury Informant: patient and spouse/S.O. Narrative Narrative: 74-year-old female presenting to the the chief complaint of right shoulder pain after a fall. Patient states she was in her kitchen and pressed the button on the skin lap bonder and fell over. She is unsure if she struck her shoulder on the floor or the cabinetry. She is unsure why she fell. states that the floor is tile and perhaps it was slick. She states she did not strike her head. She denies any neck back pain. She notes a bruise to the lateral proximal right forearm. She has no pain at the elbow joint. She notes pain generally about the shoulder area. Her and her tell me that she had fallen previously about a year ago and was seeing Dr. Lee with orthopedics and was felt to have a rotator cuff injury but she elected not to have surgery. She states that she was on Eliquis in the past but is not currently. She denies any hand symptoms. [facility] Medical History Hypoxia Fracture of humeral head [...] sides Chronic lower back pain Home Medications ???Medication ???Instructions ???Recorded ???Last Taken ???Type buspirone 7.5 mg tablet 7.5 mg PO BID ANXIETY 02/17/2011/08 History clonazepam 1 mg tablet 1 mg PO TID ANXIETY 02/17/2004/26 History doxepin 150 mg capsule 150 mg PO QHS ANXIETY 07/30/23 Unk nown History metoprolol succinate 25 mg 25 mg PO DAILY BLOOD PRESSURE 07/17 06/09 Unknown History tablet,extended release 24 hr omeprazole 20 mg capsule,delayed 20 mg PO DAILY GERD 07/30/23 Unkno wn History release apixaban 5 mg tablet (Eliquis) 5 mg PO BID blood thinner 01/03/24 Unknown History doxycycline monohydrate 100 mg 100 mg PO BID #14 tabs 01/04/24 Un known Rx tablet Allergy/AdvReac Type Severity Reaction Status [...] cane ROS ROS ED Constitutional Constitutional ED: Denies chills, fever(s) or weight loss Eyes Eyes: Denies change in vision or diplopia ENT ENT ED: Denies ear pain, rhinorrhea or sore throat Cardiovascular Cardiovascular: Denies chest pain, orthopnea, palpitations or racing heartbeat Respiratory/Chest Respiratory/Chest: Denies cough, dyspnea or orthopnea Gastrointestinal Gastrointestinal: Denies abdominal pain, diarrhea, nausea or vomiting Genitourinary Genitourinary ED: Denies dysuria, hematuria or urinary frequency Musculoskeletal Musculoskeletal: Reports other Details: See history of present illness ; Denies arthralgias, back pain, myalgias or neck pain Integumentary Reports other Details: Forearm contusion ; Denies abscess or rash Neurologic Neurologic: Denies headache(s), paresthesias or weakness (more content not included)... Normal [facility] Shoulder min 2 Viewson 06-04 Shoulder min 2 Views [facility] Imaging Services [address] [place], [place] [address] Shoulder min 2 Views MR#: [id number] Acct: [id number] Name: CAROL ZARAGOZA Rep #: [id number] : 1950 F 74 From: Thuan Santamaria PCP: Dr. Harish Luis MD Status: REG ER Study: Shoulder min 2 Views Date of Exam: 06/04/24 Exam# [id number] Ordering Dr: Irving White DO PROCEDURE: Right shoulder radiographs REASON FOR EXAM: INJURY TECHNIQUE: Four views of the right shoulder COMPARISON: None FINDINGS: See impression RAD/Shoulder min 2 Views IMPRESSION: No definite acute displaced fracture. High-riding humeral head which may relate to chronic rotator cuff tear. Mild articular surface depression of the superomedial humeral head. Chronic appearing erosive changes of the greater humeral tuberosity. Ossified joint body along the posterior glenohumeral joint measuring up to 12 mm. Severe glenohumeral joint osteoarthritis. Reading Location: [facility] CC: Dr. Irving White DO; Dr. Harish Luis MD Play Back Operator: Signed Normal [facility] Urine Cultureon 04-03-2024 [facility] Mary Alice albicans [place] Count 80,000-100,000 Normal [facility] Comment on above: Performed By: #### L 501.5200 #### [facility] [address] [place], [address] Brain/Head without Contrasto n 03-31-2024 Brain/Head without Contrast [facility] Imaging Services [address] [place] [address] Brain/Head without Contrast MR#: [id number] Acct: [id number] Name: CAROL ZARAGOZA Rep #: [id number] : 1950 F 73 From: Rafael max MD PCP: Dr. Harish Luis MD Status: REG CLI Study: Brain/Head without Contrast Date of Exam: 03/19 06/10 Exam# [id number] Ordering Dr: Harish Luis MD [id number] STUDY: CT BRAIN WITHOUT CONTRAST REASON FOR EXAM: Female, 73 years old. Migraine headaches. RADIATION DOSAGE (If Supplied By Facility): CTDIvol = ( 47.06 ) mGy, DLP = ( 872.68 ) mGycm TECHNIQUE: Transaxial CT imaging of the brain was performed without administration of intravenous contrast material. Individualized dose optimization techniques were used for this CT. COMPARISON: No relevant priors. FINDINGS: Normal soft tissue structures. Normal calvarium. There is mild cerebral atrophy with widening of the extra-axial spaces and ventricular dilatation. There are areas of decreased attenuation within the white matter tracts of the supratentorial brain, consistent with microvascular disease changes. Normal basal ganglia and thalami. Normal brainstem. There is mild cerebellar atrophy. There is no intracranial hemorrhage. There are no findings of an acute ischemic infarction. Atherosclerotic plaque formation of the cavernous portions of the internal carotid arteries bilaterally. Normal visualized paranasal sinuses. CT/Brain/Head without Contrast IMPRESSION: Chronic involutional changes of the brain. Electronically Signed: Rafael Sherwood MD at 14:38 EST , CC: Dr. Harish Luis MD Play Back Operator: Signed Normal [facility] Urine cultureOrdered By: Harish Luis on 03-31-2024 Bacteria identified Cx Nom (U) Mary Alice albicans Abnormal [facility] Influenza virus A and B and SARS-CoV-2 (COVID-19) and Respiratory syncytial virus RNAOrdered By: Harish Luis on 02-19-2024 SARS-CoV-2 (COVID-19) RNA ANTIONE+probe Ql (Unsp spec) [facility] M100.678on 02-19-2024 M100.678 Pending SARS-CoV-2 (COVID 19) Negative INFLUENZA A Negative INFLUENZA B Negative RSV PCR Negative Normal [facility] Comment on above: Performed By: #### L 801.1543, L505.5000, L801.1541 #### [facility] [address] [place], [address] Vitamin D,25 Hydroxyon 01-09 Vitamin D 25-OH 35.4 ng/mL Normal [facility] Comment on above: Result Comment: Amalia min D 25(OH) Status Range Deficiency <20 ng/mL (50nmol/L) Insufficiency 20 - 30 ng/mL (50 - 75 nmol/L) Sufficiency 30 - 100 ng/mL (75 - 250 nmol/L) Toxicity >100 ng/mL (>250 nmol/L) Performed By: #### L 500.4100, L506.1000, L501.9520, L100.0100, L500.4050 ####[facility] [address] [place], [address] CBC W/Diff, Automatedon - Absolute Lymph 1.63 X10 3/uL Normal 0.83-4.51 [facility] Comment on above: Performed By: #### L 500.4100, L506.1000, L501.9520, L100.0100, L500.4050 ####[facility] [address] [place], [address] Absolute Neut 4.3 X10 3/uL Normal 2.0-7.7 [facility] Comment on above: Performed By: #### L 500.4100, L506.1000, L501.9520, L100.0100, L500.4050 ####[facility] [address] [place], [address] Basophils/100 WBC (Bld) 0.9 % Normal 0-1 [facility] Comment on above: Performed By: #### L 500.4100, L506.1000, L501.9520, L100.0100, L500.4050 ####[facility] [address] [place], [address] Eosinophils/100 WBC (Bld) 1.4 % Normal 0-5 [facility] Comment on above: Performed By: #### L 500.4100, L506.1000, L501.9520, L100.0100, L500.4050 ####[facility] [address] [place], [address] Erythrocyte distribution width (RBC) [Ratio] 14.9 % High 11.6-14.6 [facility] Comment on above: Performed By: #### L 500.4100, L506.1000, L501.9520, L100.0100, L500.4050 ####[facility] [address] [place], [address] Hematocrit (Bld) [Volume fraction] 36.7 % Low 37-47 [facility] Comment on above: Performed By: #### L 500.4100, L506.1000, L501.9520, L100.0100, L500.4050 ####[facility] [address] [place], [address] Hemoglobin (Bld) [Mass/Vol] 11.5 g/dL Low 12.0-15.0 [facility] Comment on above: Performed By: #### L 500.4100, L506.1000, L501.9520, L100.0100, L500.4050 ####[facility] [address] [place], [address] IG% 0.500 Normal 0.0-0.9 [facility] Comment on above: Result Comment: IG% - Immature Granulocytes (promyelocytes, myelocytes and metamyelocytes) > 1% indicates that a LEFT SHIFT is Present. Performed By: #### L 500.4100, L506.1000, L501.9520, L100.0100, L500.4050 ####[facility] [address] [place], [address] Lymphocytes/100 WBC (Bld) 25.0 % Normal 19-41 [facility] Comment on above: Performed By: #### L 500.4100, L506.1000, L501.9520, L100.0100, L500.4050 ####[facility] [address] [place], [address] MCH (RBC) [Entitic mass] 30.6 pg Normal 27.0-32.0 [facility] Comment on above: Performed By: #### L 500.4100, L506.1000, L501.9520, L100.0100, L500.4050 ####[facility] [address] [place], [address] MCHC (RBC) [Mass/Vol] 31.3 g/dL Low 32-36 [facility] Comment on above: Performed By: #### L 500.4100, L506.1000, L501.9520, L100.0100, L500.4050 ####[facility] [address] [place], [address] MCV (RBC) [Entitic vol] 97.6 fL Normal 81-99 [facility] Comment on above: Performed By: #### L 500.4100, L506.1000, L501.9520, L100.0100, L500.4050 ####[facility] [address] [place], [address] Monocytes/100 WBC (Bld) 6.1 % Normal 0-10 [facility] Comment on above: Performed By: #### L 500.4100, L506.1000, L501.9520, L100.0100, L500.4050 ####[facility] [address] [place], [address] Neutrophils/100 WBC (Bld) 66.1 % Normal 47-70 [facility] Comment on above: Performed By: #### L 500.4100, L506.1000, L501.9520, L100.0100, L500.4050 ####[facility] [address] [place], [address] Nucleated RBC (Bld) [#/Vol] 0 10*3/uL Normal 0-5 [facility] Comment on above: Performed By: #### L 500.4100, L506.1000, L501.9520, L100.0100, L500.4050 ####[facility] [address] [place], [address] Platelet mean volume (Bld) [Entitic vol] 9.6 fL Normal 6.2-12.0 [facility] Comment on above: Performed By: #### L 500.4100, L506.1000, L501.9520, L100.0100, L500.4050 ####[facility] [address] [place], [address] Platelets (Bld) [#/Vol] 419 10*3/uL Normal 150-450 [facility] Comment on above: Performed By: #### L 500.4100, L506.1000, L501.9520, L100.0100, L500.4050 ####[facility] [address] [place], [address] RBC (Bld) [#/Vol] 3.76 10*6/uL Low 4.2-5.4 [facility] Comment on above: Performed By: #### L 500.4100, L506.1000, L501.9520, L100.0100, L500.4050 ####[facility] [address] [place], [address] RDW SD 53.9 fl High 35.1-43.9 [facility] Comment on above: Performed By: #### L 500.4100, L506.1000, L501.9520, L100.0100, L500.4050 ####[facility] [address] [place], [address] WBC (Bld) [#/Vol] 6.5 10*3/uL Normal 4.4-11.0 [facility] Comment on above: Performed By: #### L 500.4100, L506.1000, L501.9520, L100.0100, L500.4050 ####[facility] [address] [place], [address] Comprehensive Metabolic [facility] 01-09-2024 Albumin [Mass/Vol] 2.7 g/dL Low 3.2-5.0 [facility] Comment on above: Performed By: #### L 500.4100, L506.1000, L501.9520, L100.0100, L500.4050 ####[facility] [address] [place], [address] Albumin/Globulin [Mass ratio] 0.8 {ratio} Low 0.9-2.4 [facility] Comment on above: Performed By: #### L 500.4100, L506.1000, L501.9520, L100.0100, L500.4050 ####[facility] [facility] [address] [place], [address] ALK P 90 U/L Normal 45-117 [facility] Comment on above: Performed By: #### L 500.4100, L506.1000, L501.9520, L100.0100, L500.4050 ####[facility] [address] [place], [address] ALT [Catalytic activity/Vol] 13 U/L Normal 13-56 [facility] Comment on above: Performed By: #### L 500.4100, L506.1000, L501.9520, L100.0100, L500.4050 ####[facility] [address] [place], [address] AST [Catalytic activity/Vol] 10 U/L Low 15-37 [facility] Comment on above: Performed By: #### L 500.4100, L506.1000, L501.9520, L100.0100, L500.4050 ####[facility] [address] [place], [address] Bilirubin [Mass/Vol] 0.20 mg/dL Normal 0.20-1.00 [facility] Comment on above: Result Comment: For patients on eltrombopag therapy, use of Dimension [place] TBIL is not recommended. Performed By: #### L 500.4100, L506.1000, L501.9520, L100.0100, L500.4050 ####[facility] [address] [place], [address] BUN/CRE 7.7 RATIO Low 10-20 [facility] Comment on above: Performed By: #### L 500.4100, L506.1000, L501.9520, L100.0100, L500.4050 ####[facility] [address] [place], [address] CA,Total 8.7 mg/dL Normal 8.5-10.1 [facility] Comment on above: Performed By: #### L 500.4100, L506.1000, L501.9520, L100.0100, L500.4050 ####[facility] [address] [place], [address] Chloride [Moles/Vol] 114 mmol/L High 98-107 [facility] Comment on above: Performed By: #### L 500.4100, L506.1000, L501.9520, L100.0100, L500.4050 ####[facility] [address] [place], [address] CO2 [Moles/Vol] 24.0 mmol/L Normal 21.0-32.0 [facility] Comment on above: Performed By: #### L 500.4100, L506.1000, L501.9520, L100.0100, L500.4050 ####[facility] [address] [place], [address] Creatinine [Mass/Vol] 0.91 mg/dL Normal 0.55-1.02 [facility] Comment on above: Result Comment: The validity of the calculated GFR GFRAA in patients over 70 years has not been determined. Clinical correlation is essential. Performed By: #### L 500.4100, L506.1000, L501.9520, L100.0100, L500.4050 ####[facility] [address] [place], [address] EST GFR - AA 78 mL/min Normal >60 [facility] Comment on above: Result Comment: Afri can Chinese GFR Calc Performed By: #### L 500.4100, L506.1000, L501.9520, L100.0100, L500.4050 ####[facility] [address] [place], [address] GAP 5 Normal 5-15 [facility] Comment on above: Performed By: #### L 500.4100, L506.1000, L501.9520, L100.0100, L500.4050 ####[facility] [address] [place], [address] GFR/1.73 sq M.predicted among non-blacks MDRD (S/P/Bld) [Vol rate/Area] 65 mL/min/{1.73_m2} Normal >60 [facility] Comment on above: Result Comment: Non- GFR Calc Performed By: #### L 500.4100, L506.1000, L501.9520, L100.0100, L500.4050 ####[facility] [address] [place], [address] Globulin (S) [Mass/Vol] 3.5 g/dL Normal 2.2-4.2 [facility] Comment on above: Performed By: #### L 500.4100, L506.1000, L501.9520, L100.0100, L500.4050 ####[facility] [address] [place], [address] Glucose [Mass/Vol] 108 mg/dL High 74-106 [facility] Comment on above: Result Comment: Fast ing Glucose result from 100 to 125 mg/dL suggests IMPAIRED HOMEOSTASIS per A.D.A. criteria. Performed By: #### L 500.4100, L506.1000, L501.9520, L100.0100, L500.4050 ####[facility] [address] [place], [address] Potassium [Moles/Vol] 3.9 mmol/L Normal 3.5-5.1 [facility] Comment on above: Performed By: #### L 500.4100, L506.1000, L501.9520, L100.0100, L500.4050 ####[facility] [address] [place], [address] Sodium [Moles/Vol] 142 mmol/L Normal 136-145 [facility] Comment on above: Performed By: #### L 500.4100, L506.1000, L501.9520, L100.0100, L500.4050 ####[facility] [address] [place], [address] T PROT 6.2 g/dL Low 6.4-8.2 [facility] Comment on above: Performed By: #### L 500.4100, L506.1000, L501.9520, L100.0100, L500.4050 ####[facility] [address] [place], [address] Urea nitrogen [Mass/Vol] 7 mg/dL Normal 7-18 [facility] Comment on above: Performed By: #### L 500.4100, L506.1000, L501.9520, L100.0100, L500.4050 ####[facility] [address] [place], [address] Culture, Blood (WB)on 2023 CUB blood cultures x2, f rom 2 different sites No growth in 5 days. Normal [facility] Comment on above: Performed By: #### M 200.1000 ####[facility] [address] [place], [address] Lipid Profileon 01-09-2024 Cholesterol [Mass/Vol] 285 mg/dL High 200 [facility] Comment on above: Result Comment: <200 mg/dL Desirable 200-240 mg/dL Borderline >240 mg/dL High Risk Performed By: #### L 500.4100, L506.1000, L501.9520, L100.0100, L500.4050 ####[facility] [address] [place], [address] Cholesterol in HDL [Mass/Vol] 75 mg/dL Normal [facility] Comment on above: Result Comment: The drugs N-Acetylcysteine and Metamizole may falsely depress this assay. Reference Range HDL <40 mg/dL Low HDL Cholesterol HDL >or= 60 mg/dL High HDL Cholesterol Performed By: #### L 500.4100, L506.1000, L501.9520, L100.0100, L500.4050 ####[facility] [address] [place], [address] Cholesterol in LDL [Mass/Vol] 191 mg/dL High 0-130 [facility] Comment on above: Performed By: #### L 500.4100, L506.1000, L501.9520, L100.0100, L500.4050 ####[facility] [address] [place], [address] Cholesterol in VLDL [Mass/Vol] 19 mg/dL Normal 5-40 [facility] Comment on above: Performed By: #### L 500.4100, L506.1000, L501.9520, L100.0100, L500.4050 ####[facility] [address] [place], [address] Triglyceride [Mass/Vol] 97 mg/dL Normal [facility] Comment on above: Result Comment: The drugs N-Acetylcysteine and Metamizole may falsely depress this assay. Serum Triglycerides Reference Interval Normal <150 mg/dL Borderline high 150 - 199 mg/dL High 200 - 499 mg/dL Very High > or = 500 mg/dL Performed By: #### L 500.4100, L506.1000, L501.9520, L100.0100, L500.4050 ####[facility] [address] [place], [address] Thyroid Stim Hormone (TSH)on 01-09-2024 TSH 0.729 uIU/mL Normal 0.358-3.74 0 [facility] Comment on above: Performed By: #### L 500.4100, L506.1000, L501.9520, L100.0100, L500.4050 ####[facility] [address] [place], [address] Basic Metabolic Profile (BMP )on 01-04-2024 BUN/CRE 12.0 RATIO Normal -20 [facility] Comment on above: Performed By: #### L 801.1543, L505.5000, L801.1541 #### [facility] [address] [place], [address] CA,Total 8.3 mg/dL Low 8.5-10.1 [facility] Comment on above: Performed By: #### L 801.1543, L505.5000, L801.1541 #### [facility] [address] [place], [address] Chloride [Moles/Vol] 118 mmol/L High 98-107 [facility] Comment on above: Performed By: #### L 801.1543, L505.5000, L801.1541 #### [facility] [address] [place], [address] CO2 [Moles/Vol] 23.0 mmol/L Normal 21.0-32.0 [facility] Comment on above: Performed By: #### L 801.1543, L505.5000, L801.1541 #### [facility] [address] [place], [address] Creatinine [Mass/Vol] 0.75 mg/dL Normal 0.55-1.02 [facility] Comment on above: Result Comment: The validity of the calculated GFR GFRAA in patients over 70 years has not been determined. Clinical correlation is essential. Performed By: #### L 801.1543, L505.5000, L801.1541 #### [facility] [address] [place], [address] ECRCL 49.53 ml/min Normal [facility] Comment on above: Performed By: #### L 801.1543, L505.5000, L801.1541 #### [facility] [address] [place], [address] EST GFR - AA 98 mL/min Normal >60 [facility] Comment on above: Result Comment: Afri can Chinese GFR Calc Performed By: #### L 801.1543, L505.5000, L801.1541 #### [facility] [address] [place], [address] GAP 3 Low 5-15 [facility] Comment on above: Performed By: #### L 801.1543, L505.5000, L801.1541 #### [facility] [address] [place], [address] GFR/1.73 sq M.predicted among non-blacks MDRD (S/P/Bld) [Vol rate/Area] 81 mL/min/{1.73_m2} Normal >60 [facility] Comment on above: Result Comment: Non- GFR Calc Performed By: #### L 801.1543, L505.5000, L801.1541 #### [facility] [address] [place], [address] Glucose [Mass/Vol] 83 mg/dL Normal 74-106 [facility] Comment on above: Performed By: #### L 801.1543, L505.5000, L801.1541 #### [facility] [address] [place], [address] Potassium [Moles/Vol] 4.2 mmol/L Normal 3.5-5.1 [facility] Comment on above: Performed By: #### L 801.1543, L505.5000, L801.1541 #### [facility] [address] [place], [address] Sodium [Moles/Vol] 144 mmol/L Normal 136-145 [facility] Comment on above: Performed By: #### L 801.1543, L505.5000, L801.1541 #### [facility] [address] [place], [address] Urea nitrogen [Mass/Vol] 9 mg/dL Normal 7-18 [facility] Comment on above: Performed By: #### L 801.1543, L505.5000, L801.1541 #### [facility] [address] [place], [address] CBC W/Diff, Automatedon 10-03 26-2023 Absolute Lymph 1.68 X10 3/uL Normal 0.83-4.51 [facility] Comment on above: Performed By: #### L 801.1543, L505.5000, L801.1541 #### [facility] [address] [place], [address] Absolute Neut 6.7 X10 3/uL Normal 2.0-7.7 [facility] Comment on above: Performed By: #### L 801.1543, L505.5000, L801.1541 #### [facility] [address] [place], [address] Basophils/100 WBC (Bld) 0.4 % Normal 0-1 [facility] Comment on above: Performed By: #### L 801.1543, L505.5000, L801.1541 #### [facility] [address] [place], [address] Eosinophils/100 WBC (Bld) 1.6 % Normal 0-5 [facility] Comment on above: Performed By: #### L 801.1543, L505.5000, L801.1541 #### [facility] [address] [place], [address] Erythrocyte distribution width (RBC) [Ratio] 15.0 % High 11.6-14.6 [facility] Comment on above: Performed By: #### L 801.1543, L505.5000, L801.1541 #### [facility] [address] [place], [address] Hematocrit (Bld) [Volume fraction] 31.2 % Low 37-47 [facility] Comment on above: Performed By: #### L 801.1543, L505.5000, L801.1541 #### [facility] [address] [place], [address] Hemoglobin (Bld) [Mass/Vol] 9.9 g/dL Low 12.0-15.0 [facility] Comment on above: Performed By: #### L 801.1543, L505.5000, L801.1541 #### [facility] [address] [place], [address] IG% 0.300 Normal 0.0-0.9 [facility] Comment on above: Result Comment: IG% - Immature Granulocytes (promyelocytes, myelocytes and metamyelocytes) > 1% indicates that a LEFT SHIFT is Present. Performed By: #### L 801.1543, L505.5000, L801.1541 #### [facility] [address] [place], [address] Lymphocytes/100 WBC (Bld) 18.4 % Low 19-41 [facility] Comment on above: Performed By: #### L 801.1543, L505.5000, L801.1541 #### [facility] [address] [place], [address] MCH (RBC) [Entitic mass] 30.9 pg Normal 27.0-32.0 [facility] Comment on above: Performed By: #### L 801.1543, L505.5000, L801.1541 #### [facility] [address] [place], [address] MCHC (RBC) [Mass/Vol] 31.7 g/dL Low 32-36 [facility] Comment on above: Performed By: #### L 801.1543, L505.5000, L801.1541 #### [facility] [address] [place], [address] MCV (RBC) [Entitic vol] 97.5 fL Normal 81-99 [facility] Comment on above: Performed By: #### L 801.1543, L505.5000, L801.1541 #### [facility] [address] [place], [address] Monocytes/100 WBC (Bld) 5.9 % Normal 0-10 [facility] Comment on above: Performed By: #### L 801.1543, L505.5000, L801.1541 #### [facility] [address] [place], [address] Neutrophils/100 WBC (Bld) 73.4 % High 47-70 [facility] Comment on above: Performed By: #### L 801.1543, L505.5000, L801.1541 #### [facility] [address] [place], [address] Nucleated RBC (Bld) [#/Vol] 0 10*3/uL Normal 0-5 [facility] Comment on above: Performed By: #### L 801.1543, L505.5000, L801.1541 #### [facility] [address] [place], [address] Platelet mean volume (Bld) [Entitic vol] 9.8 fL Normal 6.2-12.0 [facility] Comment on above: Performed By: #### L 801.1543, L505.5000, L801.1541 #### [facility] [address] [place], [address] Platelets (Bld) [#/Vol] 314 10*3/uL Normal 150-450 [facility] Comment on above: Performed By: #### L 801.1543, L505.5000, L801.1541 #### [facility] [address] [place], [address] RBC (Bld) [#/Vol] 3.20 10*6/uL Low 4.2-5.4 [facility] Comment on above: Performed By: #### L 801.1543, L505.5000, L801.1541 #### [facility] [address] [place], [address] RDW SD 53.7 fl High 35.1-43.9 [facility] Comment on above: Performed By: #### L 801.1543, L505.5000, L801.1541 #### [facility] [address] [place], [address] WBC (Bld) [#/Vol] 9.1 10*3/uL Normal 4.4-11.0 [facility] Comment on above: Performed By: #### L 801.1543, L505.5000, L801.1541 #### [facility] [address] [place], [address] Discharge Instructionon 12-17 Discharge Instruction [facility] Medical Records Department [address] [place] [address] Instructions for Home/Discharge Instructions 01/04/24 1428 MR#: [id number] Acct: [id number] Name: CAROL ZARAGOZA Rep #: [id number] : 1950 73 From: Rafita Siddiqui DO PCP: Dr. Harish Luis MD Status:ADM IN Discharge Instructions Diet Discharge Diet: - (Follow diet as outlined by speech therapy) Activity Discharge Activity: Return to Normal Activity Weight Bearing Status: Full weight bearing Follow Up Care Test Results: Test results from this visit will be discussed in further detail at your follow-up appointment, if applicable. Discharge Plan Admission Admit Date/Time: 01/03/24 16:36 Primary Reason for Your Visit: aspiration pneumonia, delirium Attending Provider: Rafita Siddiqui Primary Care Provider: Harish Luis Chi Consulting Providers: Zia Posey Discharge Orders/Prescriptions Prescriptions: New doxycycline monohydrate 100 mg tablet 100 mg PO BID Qty: 14 0RF Continued clonazepam 1 MG tablet 1 mg PO TID buspirone 7.5 MG tablet 7.5 mg PO BID omeprazole 20 mg capsule,delayed release(DR/EC) 20 mg PO DAILY metoprolol succinate 25 mg tablet extended release 24 hr 25 mg PO DAILY doxepin 150 mg capsule 150 mg PO QHS Eliquis 5 mg tablet 5 mg PO BID Referrals / Follow Up: Harish Luis Chi, MD [Primary Care Provider] - Disposition Disposition (needs filled in before D/C Order can be placed): Home, Self Care 01/04/24 1433 Rafita Siddiqui DO CC: Dr. Zia Posey MD; Dr. Harish Luis MD Signed Normal [facility] Modified Barium Swallow Stud [facility] 01-04-2024 Modified Barium Swallow Study [facility] Speech Pathology [address] [place] [address] Modified Barium Swallow Study MR#: [id number] Acct: [id number] Name: CAROL ZARAGOZA Rep #: [id number] : 1950 73 From: Jocelyne Chinchilla M.A. [facility] Modified Barium Swallow Patient Information Study Date: 01/04/24 Study Time: 09:30 Direct Billable Minutes: 95 Total Minutes procedure reportin Diagnosis: Acute UTI N39.0; Acute encephalopathy G93.40 Referring Physician: Rafita Siddiqui Reason for Referral: Objectively assess swallow function, assess risk for aspiration, and determine recommendations for least restrictive diet textures and compensatory strategies to improve safety of swallow. Medical History: Pt was brought to [facility] ED 01/03/2024 w/ acute onset of confusion w/ chronic cough. Pt has hx of aspiration PNA (3-4X) and chronic cough. Most recent MBSS was on 07/31/2023 had no findings of aspiration; however, it could not be ruled out due to patient's body habitus. It did reveal mod- severe oral dysphagia and moderate pharyngeal dysphagia and recommended puree textures / thin liquids w/ 1:1 supervision. Pt's reported to ED physician that patient woke up on day of admission w/ confusion, as well as chills and shivering the day before admission. Physician saw the patient coughing drinking coke during work up. Chest x-ray showed bibasilar opacities, concerning for pneumonia. Pt has been admitted to the floor for medical management and referred for ST consult due to concerns for aspiration. BSE recommended puree textures / thin liquids with direct supervision, meds crushed in , and plan for MBSS to further assess swallow function and aspiration risk. Other dysphagia hx: -EGD 11/03/22 - Tortuous esophagus. Abnormal esophageal motility, suspicious for presbyesophagus. Injected with botulinum toxin. Mild Schatzki ring. Dilated. Medium-sized hiatal hernia. Biopsies were taken with a cold forceps for evaluation of eosinophilic esophagitis. Recommended discharge patient to home. Resume previous diet. Continue present medications. -MBSS 11/02/22 ??? Moderate-severe oropharyngeal dysphagia with silent aspiration of thin liquids with recommendation for NPO with consideration for FFWP and meds whole in puree. -EGD 08/02/22 - LA Grade A erosive esophagitis. Biopsied. Dilated. A large amount of food residue in the stomach. Recommended continue current medications, aspiration precautions, and gastric emptying study.MBSS 08/01/22 - Moderate-severe oropharyngeal dysphagia and esophageal dysphagia with silent aspiration of thin liquids with recommendation for minced and moist textures / thin liquids w/ strict aspiration precautions (liquid by tsp only, 2-3 swallows on each sip, GERD precautions). GI consult recommended. 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 Current Diet Ordered: Puree / Thin Dentition: Edentulous (lower dentition - ill fitting implants not present) and Upper Dentures Mental Status: Impaired (Poor recall, acute encephalopathy) Comment: acute encephalopathy Respiratory Status: Oxygenating on Room Air Penetration-Aspiration Scale Penetration-Aspiration Scale: OBJECTIVE ASSESSMENT OF SWALLOW FUNCTION (QUANTITATIVE ??? PER TRIAL): PENETRATION / ASPIRATION SCALE (HERNANDEZ): 1 = does not enter airway 2 = enters airway/above vocal folds/ejected 3 = enters airway/above vocal folds/not ejected 4 = enters airway/contacts vocal folds/ejected 5 = enters airway/contacts vocal folds/not ejected 6 = enters airway/below vocal folds/ejected 7 = enters airway/below vocal folds/not ejected despite effort 8 = enters airway/below vocal folds/no effort VIDEOFLOROSCOPIC SCALE SCORE (HERNANDEZ): Grade I = aspiration of material that has penetrated into the laryngeal vestibule, intact cough reflex Grade II = aspiration < 10 % of the bolus, intact cough reflex Grade III = aspiration of < 10 % of the bolus, reduced cough reflex or aspiration of > 10 % of the bolus, intact cough reflex Grade IV = aspiration of > 10 % of the bolus, reduced cough reflex Penetration-Aspiration Scale Score Thin Liquid via teaspoon: Result: 2= enter airway/above vocal folds/ejected Thin Liquid via teaspoon Trial 2: Result: 2= enter airway/above vocal folds/ejected Thin Liquid via large single sip: cup: Result: 2= enter airway/above vocal folds/ejected [place] Thick Liquid via large single sip: cup: Result: 2= enter airway/above (more content not included)... Normal [facility] RESPIRATORY PANEL MOLECULARo n 01-04-2024 RP PANEL ADENOVIRUS Not Detected INFLUENZA A Not Detected INFLUENZA A (SUBTYPE H1) Not Detected INFLUENZA A (SUBTYPE H3) Not Detected INFLUENZA B Not Detected HUMAN METAPHNEUMO Not Detected PARAINFLUENZA 1 Not Detected PARAINFLUENZA 2 Not Detected PARAINFLUENZA 3 Not Detected PARAINFLUENZA 4 Not Detected RHINOVIRUS Not Detected RSV A Not Detected RSV B Not Detected Normal [facility] Comment on above: Performed By: #### L 801.8263, L505.5000, L801.1541 #### [facility] [address] [place], [address] 12 Lead EKGon 01-03-2024 12 Lead EKG [facility] Cardiovascular Services [address] [place] [address] 12 Lead EKG 01/03/24 1403 MR#: [id number] Acct: [id number] Name: CAROL ZARAGOZA Rep #: [id number] : 1950 73 From: Mil Snyder MD Attending Dr: Dr. Rafita Siddiqui DO Status: A DM IN Ordering Dr: Xu Macias MD Date: 01/03/24 Location: U Sex: F C Admitted: 01/03/24 Test Reason : ALT LOC Blood Pressure : / mmHG Vent. Rate : 097 BPM Atrial Rate : 097 BPM P-R Int : 142 ms QRS Dur : 076 ms QT Int : 364 ms P-R-T Axes : 060 -05 062 degrees QTc Int : 462 ms Normal sinus rhythm Indeterminate axis ST T wave abnormality, consider anterior ischemia Abnormal ECG Confirmed by Mil Snyder ([id number]), play back operator GEGE COSTELLO ([id number]) on 01/04/2024 1:37:03 PM Referred By: Xu Macias Confirmed By:Mil Snyder 01/04/24 1337 Date Mil Snyder MD CC: Dr. Xu Macias MD; Dr. Rafita Siddiqui DO; Dr. Harish Luis MD Signed Normal [facility] Basic Metabolic Profile (BMP )on 01-03-2024 BUN/CRE 8.3 RATIO Low - [facility] Comment on above: Order Comment: [id number] URINE TOX Performed By: #### L 801.1543, L505.5000, L801.1541 #### [facility] Laboratory [address] [place], [address] CA,Total 8.5 mg/dL Normal 8.5-10.1 [facility] Comment on above: Order Comment: [id number] URINE TOX Performed By: #### L 801.1543, L505.5000, L801.1541 #### [facility] [address] [place], [address] Chloride [Moles/Vol] 109 mmol/L High 98-107 [facility] Comment on above: Order Comment: [id number] URINE TOX Performed By: #### L 801.1543, L505.5000, L801.1541 #### [facility] [address] [place], [address] CO2 [Moles/Vol] 24.0 mmol/L Normal 21.0-32.0 [facility] Comment on above: Order Comment: [id number] URINE TOX Performed By: #### L 801.1543, L505.5000, L801.1541 #### [facility] [address] [place], [address] Creatinine [Mass/Vol] 0.96 mg/dL Normal 0.55-1.02 [facility] Comment on above: Order Comment: [id number] URINE TOX Result Comment: The validity of the calculated GFR GFRAA in patients over 70 years has not been determined. Clinical correlation is essential. Performed By: #### L 801.1543, L505.5000, L801.1541 #### [facility] [address] [place], [address] ECRCL 39.38 ml/min Normal [facility] Comment on above: Order Comment: [id number] URINE TOX Performed By: #### L 801.1543, L505.5000, L801.1541 #### [facility] [address] [place], [address] EST GFR - AA 73 mL/min Normal >60 [facility] Comment on above: Order Comment: [id number] URINE TOX Result Comment: Afri can Chinese GFR Calc Performed By: #### L 801.1543, L505.5000, L801.1541 #### [facility] [address] [place], [address] GAP 5 Normal 5-15 [facility] Comment on above: Order Comment: [id number] URINE TOX Performed By: #### L 801.1543, L505.5000, L801.1541 #### [facility] [address] [place], [address] GFR/1.73 sq M.predicted among non-blacks MDRD (S/P/Bld) [Vol rate/Area] 60 mL/min/{1.73_m2} Normal >60 [facility] Comment on above: Order Comment: [id number] URINE TOX Result Comment: Non- GFR Calc Performed By: #### L 801.1543, L505.5000, L801.1541 #### [facility] [address] [place], [address] Glucose [Mass/Vol] 114 mg/dL High 74-106 [facility] Comment on above: Order Comment: [email or web address] URINE TOX Result Comment: Fast ing Glucose result from 100 to 125 mg/dL suggests IMPAIRED HOMEOSTASIS per A.D.A. criteria. Performed By: #### L 801.1543, L505.5000, L801.1541 #### [facility] [address] [place], [address] Potassium [Moles/Vol] 3.4 mmol/L Low 3.5-5.1 [facility] Comment on above: Order Comment: [id number] URINE TOX Performed By: #### L 801.1543, L505.5000, L801.1541 #### [facility] [address] [place], [address] Sodium [Moles/Vol] 138 mmol/L Normal 136-145 [facility] Comment on above: Order Comment: [id number] URINE TOX Performed By: #### L 801.1543, L505.5000, L801.1541 #### [facility] [address] [place], [address] Urea nitrogen [Mass/Vol] 8 mg/dL Normal 7-18 [facility] Comment on above: Order Comment: [id number] URINE TOX Performed By: #### L 801.1543, L505.5000, L801.1541 #### [facility] [address] [place], [address] Brain/Head without Contrasto n 01-03-2024 Brain/Head without Contrast [facility] Imaging Services [address] [place] [address] Brain/Head without Contrast MR#: [id number] Acct: [id number] Name: CAROL ZARAGOZA Rep #: [id number] : 1950 F 73 From: Jael fabian MD PCP: Dr. Harish Luis MD Status: REG ER Study: Brain/Head without Contrast Date of Exam: 12/17 10/09 Exam# [id number] Ordering Dr: Xu Macias MD [id number] HISTORY: altered MS, headache. TECHNIQUE: Multiple axial images were obtained of the head without intravenous contrast. A radiation dose optimization technique was used for this scan. 231 images. COMPARISON: None. FINDINGS: BRAIN PARENCHYMA: Mild chronic small vessel ischemic gliosis. No acute intra-axial hemorrhage. CSF SPACES: Mild generalized volume loss. No midline shift or other significant mass effect. No acute extra-axial hemorrhage. OTHER: Intact calvarium. No significant air fluid levels in the paranasal sinuses or mastoid air cells. Unremarkable orbits. CT/Brain/Head without Contrast IMPRESSION: No acute intracranial process identified. Mild chronic involutional and white matter changes. Electronically Signed: Jael Rosas MD at 15:38 EDT , CC: Dr. Xu Macias MD; Dr. Harish Luis MD Play Back Operator: Signed Normal [facility] CBC W/Diff, Automatedon 12-17 Absolute Lymph 0.75 X10 3/uL Low 0.83-4.51 [facility] Comment on above: Performed By: #### L 801.1543, L505.5000, L801.1541 #### [facility] [address] [place], [address] Absolute Neut 15.7 X10 3/uL High 2.0-7.7 [facility] Comment on above: Performed By: #### L 801.1543, L505.5000, L801.1541 #### [facility] [address] [place], [address] Basophils/100 WBC (Bld) 0.2 % Normal 0-1 [facility] Comment on above: Performed By: #### L 801.1543, L505.5000, L801.1541 #### [facility] [address] [place], [address] Eosinophils/100 WBC (Bld) 0.1 % Normal 0-5 [facility] Comment on above: Performed By: #### L 801.1543, L505.5000, L801.1541 #### [facility] [address] [place], [address] Erythrocyte distribution width (RBC) [Ratio] 14.6 % Normal 11.6-14.6 [facility] Comment on above: Performed By: #### L 801.1543, L505.5000, L801.1541 #### [facility] [address] [place], [address] Hematocrit (Bld) [Volume fraction] 34.6 % Low 37-47 [facility] Comment on above: Performed By: #### L 801.1543, L505.5000, L801.1541 #### [facility] [address] [place], [address] Hemoglobin (Bld) [Mass/Vol] 11.0 g/dL Low 12.0-15.0 [facility] Comment on above: Performed By: #### L 801.1543, L505.5000, L801.1541 #### [facility] [address] [place], [address] IG% 0.500 Normal 0.0-0.9 [facility] Comment on above: Result Comment: IG% - Immature Granulocytes (promyelocytes, myelocytes and metamyelocytes) > 1% indicates that a LEFT SHIFT is Present. Performed By: #### L 801.1543, L505.5000, L801.1541 #### [facility] [address] [place], [address] Lymphocytes/100 WBC (Bld) 4.3 % Low 19-41 [facility] Comment on above: Performed By: #### L 801.1543, L505.5000, L801.1541 #### [facility] [address] [place], [address] MCH (RBC) [Entitic mass] 30.5 pg Normal 27.0-32.0 [facility] Comment on above: Performed By: #### L 801.1543, L505.5000, L801.1541 #### [facility] [address] [place], [address] MCHC (RBC) [Mass/Vol] 31.8 g/dL Low 32-36 [facility] Comment on above: Performed By: #### L 801.1543, L505.5000, L801.1541 #### [facility] [address] [place], [address] MCV (RBC) [Entitic vol] 95.8 fL Normal 81-99 [facility] Comment on above: Performed By: #### L 801.1543, L505.5000, L801.1541 #### [facility] [address] [place], [address] Monocytes/100 WBC (Bld) 4.2 % Normal 0-10 [facility] Comment on above: Performed By: #### L 801.1543, L505.5000, L801.1541 #### [facility] [address] [place], [address] Neutrophils/100 WBC (Bld) 90.7 % High 47-70 [facility] Comment on above: Performed By: #### L 801.1543, L505.5000, L801.1541 #### [facility] [address] [place], [address] Nucleated RBC (Bld) [#/Vol] 0 10*3/uL Normal 0-5 [facility] Comment on above: Performed By: #### L 801.1543, L505.5000, L801.1541 #### [facility] [address] [place], [address] Platelet mean volume (Bld) [Entitic vol] 9.9 fL Normal 6.2-12.0 [facility] Comment on above: Performed By: #### L 801.1543, L505.5000, L801.1541 #### [facility] [address] [place], [address] Platelets (Bld) [#/Vol] 321 10*3/uL Normal 150-450 [facility] Comment on above: Performed By: #### L 801.1543, L505.5000, L801.1541 #### [facility] [address] [place], [address] RBC (Bld) [#/Vol] 3.61 10*6/uL Low 4.2-5.4 [facility] Comment on above: Performed By: #### L 801.1543, L505.5000, L801.1541 #### [facility] [address] [place], [address] RDW SD 50.7 fl High 35.1-43.9 [facility] Comment on above: Performed By: #### L 801.1543, L505.5000, L801.1541 #### [facility] [address] [place], [address] WBC (Bld) [#/Vol] 17.3 10*3/uL High 4.4-11.0 [facility] Comment on above: Performed By: #### L 801.1543, L505.5000, L801.1541 #### [facility] Laboratory [address] [place], [address] Chest 1 View (Portable)on Chest 1 View (Portable) [facility] Imaging Services [address] [place] [address] Chest 1 View (Portable) MR#: [id number] Acct: [id number] Name: CAROL ZARAGOZA Rep #: [id number] : 1950 F 73 From: Jael fabian MD PCP: Dr. Harish Luis MD Status: [facility] ER Study: Chest 1 View (Portable) Date of Exam: 01/03/24 Exam# [id number] Ordering Dr: Xu Macias MD [id number] HISTORY: weakness, cough. TECHNIQUE: XR Chest 1 View. COMPARISON: 07/30/2023. FINDINGS: CARDIOMEDIASTINAL BORDERS: Cardiac silhouette within normal limits in size. Mediastinal contour also unchanged with calcification of the aortic knob. LUNGS: Patchy bibasilar opacities, mildly decreased. PLEURA: No pleural effusion or pneumothorax seen. 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 Thoracic spinal electrode noted. RAD/Chest 1 View (Portable) IMPRESSION: Bibasilar opacities, concerning for pneumonia. Electronically Signed: Jael Rosas MD at 15:33 EDT , CC: Dr. Xu Macias MD; Dr. Harish Luis MD Play Back Operator: Signed Normal [facility] Emergency Department Summary on 01-03-2024 Emergency Department Summary [facility] Medical Records Department [address] [place] [address] Emergency Department Summary 01/03/24 MR#: [id number] Acct: [id number] Name: CAROL ZARAGOZA Rep #: [id number] : 1950 73 From: Xu Macias MD PCP: Dr. Harish Luis MD Status:ADM IN Location: [place] [id number] HPI History of Present Illness Chief Complaint: Alt LOC Informant: patient, spouse/S.O. and EMS Narrative Narrative: 73-year-old female awoke this morning at about 3 AM and was acting funny according to the . She had cold chills at that time, he thinks she woke up to use the bathroom, she was talking about being at the hospital "but do not call the doctor" and was talking out of her head although she was in her bedroom. Today she is continued to be confused and generally weak. The dog was barking and he came into the kitchen as a result and found her on the floor. Unsure if she fell or not. She denies falling. She was talking about being down there trying to operate the stove in order to make Thanksgiving pumpkin pies, which clearly is not the case since it is not November yet and states this is very unlike her and confused for her. She was fine when she went to bed yesterday, however she had been coughing yesterday off-and-on, and has a history of aspiration pneumonia. She had no vomiting yesterday and he denies the coughing necessarily being associated with meals. She fell and hit her head about a month ago and still has some bruising there, she had a laceration that did not require stitches and that is healed well. She complains of a headache today. She denies any new pains and denies falling. She does have pain in her right shoulder from her fracture from a couple months ago. [facility] Medical History Hypoxia Fracture of humeral head [...] sides Chronic lower back pain Home Medications ???Medication ???Instructions ???Recorded ???Last Taken ???Type buspirone 7.5 mg tablet 7.5 mg PO BID ANXIETY 02/17/20 04/26/22 History clonazepam 1 mg tablet 1 mg PO TID ANXIETY 02/17/20 04/26/22 History doxepin 150 mg capsule 150 mg PO QHS ANXIETY 07/30/23 Unknown History metoprolol succinate 25 mg 25 mg PO DAILY BLOOD PRESSURE 07/30/23 Unknown History tablet,extended release 24 hr omeprazole 20 mg capsule,delayed 20 mg PO DAILY GERD 07/30/23 Unknown History release apixaban 5 mg tablet (Eliquis) 5 mg PO BID blood thinner 01/03/24 Unknown History Allergy/AdvReac Type Severity Reaction Status Date / Time Penicillins Allergy Rash Verified 01/03/24 13:19 Family History Mother Hypertension CVA (cerebral vascular accident) Heart disease Cerebral hemorrhage Father Cancer Hx stomach cancer and leukemia. Surgical History History of cardiac catheterization Hx of dilation and curettage History of 2 sections Hx of surgical procedure History of lumbar laminectomy Social History household members: spouse housing: house number of children: 2 Smoking Status: Former smoker alcohol intake: never substance use type: does not use what type of physical activity do you participate in: none additional social history: Currently ambulating with a cane ROS ROS ED Constitutional Constitutional ED: Reports chills and weakness Eyes Eyes: Denies change in vision or diplopia ENT ENT ED: Denies rhinorrhea or sore throat Cardiovascular Cardiovascular: Denies chest pain or palpitations Respiratory/Chest Respiratory/Chest: Reports cough; Denies dyspnea or sputum Gastrointestinal Gastrointestinal: Denies abdominal pain, diarrhea, nausea or vomiting Genitourinary Genitourinary ED: Denies dysuria or hematuria Musculoskeletal Musculoskeletal: Denies myalgias or neck pain Integumentary (more content not included)... Normal [facility] H AND P Exam - [facility] 01-03-2024 H&P Exam - Hospitalist [facility] Medical Records Department [address] [place] [address] H P Exam - Hospitalist 01/03/24 1658 MR#: [id number] Acct: [id number] Name: CAROL ZARAGOZA Rep #: [id number] : 1950 73 From: Zia Posey MD PCP: Dr. Harish Luis MD Status:ADM IN Location: [place] [address] HPI - General General Date of Admission: 01/03/24 Date of Service: 01/03/24 Chief Complaint: Acute onset of confusion. Chronic cough, history of aspiration pneumonia HPI Narrative CAROL ZARAGOZA, is a 73 F was brought by EMS for acute onset of confusion. The history was mainly taken from the patient's in the ED but the patient also contributed. As per , she woke up very confused, change in dress and was thinking that she has to wake Thanksgiving PIE. She also thought that she is in the hospital. She was disoriented. Patient was not agitated. As per the she also had chills and shivering yesterday. She has chronic cough and had aspiration pneumonia 3-4 times because of oropharyngeal dysphagia. She was told to follow-up with [facility]. Her denies prior history of stroke. She had similar episodes of confusion in the past. She denies burning micturition or change in the color. When I saw the patient, she was coughing up after drinking Coke. In ED, low-grade fever temperature 100 Fahrenheit and tachypnea but no tachycardia or hypoxia. [facility] Medical History Hypoxia Fracture of humeral head [...] sides Chronic lower back pain Home Medications ???Medication ???Instructions ???Recorded ???Last Taken ???Type buspirone 7.5 mg tablet 7.5 mg PO BID ANXIETY 02/17/20 04/26/22 History clonazepam 1 mg tablet 1 mg PO TID ANXIETY 02/17/20 04/26/22 History doxepin 150 mg capsule 150 mg PO QHS ANXIETY 07/30/23 Unknown History metoprolol succinate 25 mg 25 mg PO DAILY BLOOD PRESSURE 07/30/23 Unknown History tablet,extended release 24 hr omeprazole 20 mg capsule,delayed 20 mg PO DAILY GERD 07/30/23 Unknown History release apixaban 5 mg tablet (Eliquis) 5 mg PO BID blood thinner 01/03/24 Unknown History Allergy/AdvReac Type Severity Reaction Status Date / Time Penicillins Allergy Rash Verified 01/03/24 13:19 Family History Mother Hypertension CVA (cerebral vascular accident) Heart disease Cerebral hemorrhage Father Cancer Hx stomach cancer and leukemia. Surgical History History of cardiac catheterization Hx of dilation and curettage History of 2 sections Hx of surgical procedure History of lumbar laminectomy Social History household members: spouse housing: house number of children: 2 Smoking Status: Former smoker alcohol intake: never substance use type: does not use what type of physical activity do you participate in: none additional social history: Currently ambulating with a cane ROS ROS Narrative Although patient is mildly confused but she can give answer to simple questions of ROS Constitutional: Reports fatigue and weakness. Chills and shivering. HEENT: Reports systems reviewed and no addt'l complaints, except as documented Respiratory/Chest: Chronic cough. No acute shortness of breath or respiratory distress or wheezing. CVS: No chest pain or tightness. Denies OR Gastrointestinal: History of aspiration. Dysphagia. Denies coffee ground emesis, hematemesis or vomiting Genitourinary: Denies burning urination or new urinary tract symptoms Musculoskeletal: Denies acute joint pain or limited range of motion. No acute injury Neurologic: Denies seizure-like symptoms. History of chronic migraine headache, close head injury and movement disorder skin: No ulcer. No rash Endocrinology: Reports systems reviewed and no addt'l complaints, exce (more content not included)... Normal [facility] L501.4020on 01-03-2024 TROPONIN-I HS 3 pg/mL Normal 3.0-54.0 [facility] Comment on above: Order Comment: [id number] URINE TOX Result Comment: Plebettie white Note: New Test Units and Gender Specific Reference Ranges. For more information see Policy Stat Procedure [place] High Sensitivity Troponin (TNIH) and attachments. Performed By: #### L 801.1543, L505.5000, L801.1541 #### [facility] [address] [place], [place], [address] Lactic Acidon 01-03-2024 Lactate [Moles/Vol] 1.0 mmol/L Normal 0.4-1.9 [facility] Comment on above: Order Comment: [id number] URINE TOX Performed By: #### L 801.1543, L505.5000, L801.1541 #### [facility] [address] [place], [address] Legionella Antigen Urineon 1 LEGU Comments: Only Recom mended for severe cases of pneumonia Only Recommended for severe cases of pneumonia URINE, CATHETER Legionella Antigen result interpretation: L pneumo Ag Ur Ql Negative Presumptive negative for Legionella pneumophila serogroup 1 antigen in urine, suggesting no recent or current infection. Legionella Ag, Urine Negative (See interpretation below) Normal [facility] Comment on above: Performed By: #### L 501.5200 #### [facility] [address] [place], [address] M100.019on 01-03-2024 M100.019 Negative Normal [facility] Comment on above: Performed By: #### L 801.1543, L505.5000, L801.1541 #### [facility] [address] [place], [address] M100.678on 01-03-2024 M100.678 Pending SARS-CoV-2 (COVID 19) Negative INFLUENZA A Negative INFLUENZA B Negative RSV PCR Negative [facility] Comment on above: Performed By: #### L 801.1543, L505.5000, L801.1541 #### [facility] [address] [place], [address] Magnesiumon 01-03-2024 Magnesium [Mass/Vol] 1.9 mg/dL Normal 1.6-2.6 [facility] Comment on above: Performed By: #### L 501.5200 #### [facility] [address] [place], [address] Strep pneumoniae Antig(UR,CS F)on 01-03-2024 STPAG Comments: Only Recom mended for severe cases of pneumonia Only Recommended for severe cases of pneumonia URINE, CATHETER URINE INTERPRETATION Negative Urine Presumptive negative for pneumococcal pneumonia, suggesting no current or recent pneumococcal infection. Infection due to S pneumoniae cannot be ruled out since the antigen present in the sample may be below the detection limit of the test. Strep pneumo Test Negative URINE (See interpretation below) Normal [facility] Comment on above: Performed By: #### L 501.5200 #### [facility] [address] [place], [address] Urinalysis, Completeon 01-02 EPI,RENAL 0-5 SEEN Normal 0-5 [facility] Comment on above: Order Comment: [id number] URINE TOX Performed By: #### L 801.1543, L505.5000, L801.1541 #### [facility] [address] [place], [address] RBC 0-5 SEEN Normal 0-5 [facility] Comment on above: Order Comment: [id number] 563 URINE TOX Performed By: #### L 801.1543, L505.5000, L801.1541 #### [facility] [address] [place], [address] WBC 25-50 SEEN Normal 0-5 [facility] Comment on above: Order Comment: [id number] 563 URINE TOX Performed By: #### L 801.1543, L505.5000, L801.1541 #### [facility] [address] [place], [address] YEAST 1+ /hpf Normal None Seen [facility] Comment on above: Order Comment: [id number] URINE TOX Performed By: #### L 801.1543, L505.5000, L801.1541 #### [facility] [address] [place], [address] BACTERIA 4+ /hpf Normal None Seen [facility] Comment on above: Order Comment: [id number] URINE TOX Performed By: #### L 801.1543, L505.5000, L801.1541 #### [facility] [address] [place], [address] EPI,SQUAMOUS 0 SEEN Normal 5-10 [facility] Comment on above: Order Comment: [id number] URINE TOX Performed By: #### L 801.1543, L505.5000, L801.1541 #### [facility] [address] [place], [address] Mucus Ql (Urine sed) 0 SEEN Normal [facility] Comment on above: Order Comment: [id number] URINE TOX Performed By: #### L 801.1543, L505.5000, L801.1541 #### [facility] [address] [place], [address] Miscellaneous Lab Procedureo n 12-18-2023 [facility] LAB TEST Normal [facility] Comment on above: Order Comment: [id number] URINE TOX Result Comment: [id number] 6+OXYCODONE-BUND (ng/mL) DRUG RESULT SCREEN CUTOFF ____ Amphetamines,Urine Negative ng/mL 1000 Amphetamine test includes Amphetamine and Methamphetamine. Barbiturates Negative ng/mL 200 Benzodiazepines POSITIVE ng/mL 100 Please Note; Confirmation performed by Mass Spectrometry Nordiazepam Positive Nordiazepam Conf,MS,UR 190 ng/mL 100 Oxazepam Negative 100 Flurazepam Negative 100 Lorazepam Negative 100 Alprazolam Negative 100 Clonazepam Positive Clonazepam Conf,MS,UR 497 ng/mL 100 Temazepam Negative 100 Triazolam Negative 100 Midazolam Negative 100 Cannabinoid Negative ng/mL 20 Cocaine (Metab) Negative ng/mL 300 Opiates Negative ng/mL 300 Opiates test includes Codeine, Morphine, Hydromorphone, Hydrocodone. Oxycodone/Oxymorphone,Urine Negative ng/mL 300 Test includes Oxydodone and Oxymorphone. TESTING PERFORMED AT [facility]. ORIGINAL REPORT ON FILE IN LAB CONTAINS ADDITIONAL TEST SITE INFORMATION. Performed By: #### L 801.1543, L505.5000, L801.1541 #### [facility] [address] [place], [place], [address] Miscellaneous Lab Procedure 2on 12-18-2023 [facility] LAB TEST 2 Normal [facility] Comment on above: Order Comment: [id number] TRAMADOL Result Comment: TEST RESULTS LIMITS Tramadol, Urine Tramadol Screen, Urine Negative ng/mL [id number]=243 TESTING PERFORMED AT [facility]. ORIGINAL REPORT ON FILE IN LAB CONTAINS ADDITIONAL TEST SITE INFORMATION. Performed By: #### L 801.1543, L505.5000, L801.1541 #### [facility] [address] [place], [place], [address] Urine Drug Screen (VISTA)on 12-12-2023 AMPHETAMINES Negative Normal <1000 ng/mL [facility] Comment on above: Order Comment: MEDTO X Performed By: #### L 801.1543, L505.5000, L801.1541 #### [facility] [address] [place], [address] BARBITIURATES Negative Normal < 200 ng/mL [facility] Comment on above: Order Comment: MEDTO X Performed By: #### L 801.1543, L505.5000, L801.1541 #### [facility] [address] [place], [address] BENZODIAZIPINE Positive Abnormal < 200 ng/mL [facility] Comment on above: Order Comment: MEDTO X Performed By: #### L 801.1543, L505.5000, L801.1541 #### [facility] [address] [place], [address] COCAINE Negative Normal < 300 ng/mL [facility] Comment on above: Order Comment: MEDTO X Performed By: #### L 801.1543, L505.5000, L801.1541 #### [facility] [address] [place], [address] ECSTACY Negative Normal < 500 ng/mL [facility] Comment on above: Order Comment: MEDTO X Performed By: #### L 801.1543, L505.5000, L801.1541 #### [facility] [address] [place], [address] METHADONE Negative Normal < 300 ng/mL [facility] Comment on above: Order Comment: MEDTO X Performed By: #### L 801.1543, L505.5000, L801.1541 #### [facility] [address] [place], [address] OPIATES Negative Normal < 300 ng/mL [facility] Comment on above: Order Comment: MEDTO X Performed By: #### L 801.1543, L505.5000, L801.1541 #### [facility] [address] [place], [address] PCP Negative Normal < 25 ng/mL [facility] Comment on above: Order Comment: MEDTO X Performed By: #### L 801.1543, L505.5000, L801.1541 #### [facility] [address] [place], [address] THC Negative Normal < 50 ng/mL [facility] Comment on above: Order Comment: MEDTO X Performed By: #### L 801.1543, L505.5000, L801.1541 #### [facility] [address] [place], [address] VISTA UDS PH 6 Normal [facility] Comment on above: Order Comment: MEDTO X Performed By: #### L 801.1543, L505.5000, L801.1541 #### [facility] [address] [place], [address] Orthopedic Visit Reporton Orthopedic Visit Report [facility] [address] [place] [address] [address] [place] [address] OFFICE VISIT Date of Service: 12/06/23 MR#: [id number] Acct: [id number] Name: CAROL ZARAGOZA Rep #: [id number] : 1950 Provider: Dr. Daniel angelo MD Age/Sex: 73/F Location: [facility] Status: Signed Intake Vital Signs 11/02/23 08:56 Height 5 ft 1 in Weight: 110 lb BMI 20.7 Intake Visit Reasons: RIGHT SHOULDER Chief Complaint: Right shoulder injury, pain Accompanied by: Is patient in pain?: Yes Pain scale (1-10): 8 Allergies Penicillins Allergy (Verified 12/06/23 10:43) Rash Medications ???Medication ???Instructions ???Recorded ???Confirmed ???Type buspirone 7.5 mg tablet 7.5 mg PO BID Check with primary 02/17/20 12/06/23 History doctor clonazepam 1 mg tablet 1 mg PO TID anxiety 02/17/20 12/06/23 History gabapentin 400 mg capsule 400 mg PO Q6H Check with primary 04/20/22 12/06/23 History doctor acetaminophen 325 mg tablet 650 mg (2 x 325 mg) PO Q6H PRN PRN 08/02/22 12/06/23 Rx Pain 1-10 Or Fever >100.7 #0 tabs doxepin 150 mg capsule 150 mg PO QHS 07/30/23 12/06/23 History metoprolol succinate 25 mg 25 mg PO DAILY 07/30/23 12/06/23 History tablet,extended release 24 hr omeprazole 20 mg capsule,delayed 20 mg PO DAILY 07/30/23 12/06/23 History release apixaban 5 mg tablet (Eliquis) 5 mg PO BID #60 tabs 08/04/23 12/06/23 Rx Have you fallen in the past year?: Yes PFSH Medical History Hypoxia Fracture of humeral [...] on both sides Chronic lower back pain Surgical History History of cardiac catheterization Hx of dilation and curettage History of 2 sections Hx of surgical procedure History of lumbar laminectomy Family History Mother Hypertension CVA (cerebral vascular accident) Heart disease Cerebral hemorrhage Father Cancer Hx stomach cancer and leukemia. Social History household members: spouse housing: house number of children: 2 Smoking Status: Current every day smoker tobacco type: e-cigarettes alcohol intake: never substance use type: does not use what type of physical activity do you participate in: none additional social history: Currently ambulating with a cane HPI RIGHT SHOULDER Details: This documentation accurately reflects the service provided and the decisions made by me, Dr. Daniel Lee MD 12/06/23 1040. Part of today???s visit was documented by [ ], acting as scribe. CAROL ZARAGOZA is a 73 year old F here today for 5 months following up right greater tuberosity humerus fracture nonoperative management with displacement and patient on Eliquis. Patient had a recent fall within the last week with multiple bruises on her face and head. She was in the garage trying get a cat. Here with her today. Has seen multiple pain specialist in the past including Drs. Coburn and Dr. Seo. Ortho Exam General General: Yes no acute distress Neurologic: Yes alert and Yes lethargic (multiple facial bruises) Psychologic: Yes reasonable and appropriate Coding Level of Care Code Off vis,est,level 3 Diagnoses Closed fracture of greater tuberosity of right humerus S42.251A Assessment and Plan Assessment and Plan (1) Closed fracture of greater tuberosity of right humerus: Status: Inactive Plan: CAROL ZARAGOZA is a 73 year old F here today for 5 months following up right greater tuberosity humerus fracture nonoperative management with displacement and patient on Eliquis. Patient seems to have a chronic pain not only in the shoulder but also in the spine they have had a spinal stimulator placed. Patient unsure how long they need to be on Eliquis again not sure if there is a cognitive (more content not included)... Normal [facility] PT D/C Summary (1)on 024 PT D/C Summary (1) [facility] Physical Therapy [facility] [place] [address] / REHABILITATION SERVICES DISCHARGE SUMMARY MR#: [id number] Acct: [id number] Name: CAROL ZARAGOZA Rep #: [id number] : 1950 73 From: Doni Flores DPT, OCS, CSCS Referring Dr.: Dr. Daniel Lee MD Status: R EG RCR Insurance: [facility] MEDICARE SELF PAY INSURANCE Discharge Summary D/C summary: It has been my pleasure to treat CAROL ZARAGOZA referred by Dr. Daniel Lee MD, with the diagnosis of R shoulder greater tuberosity fracture for a total of 19 visit(s). Discharge Date: Please see the following information for a summary of their discharge status. Subjective Subjective: Not good. Pain in shoulder persists with movement. it cracks and hurts to reach out . 9/10 with reaching transiently and has to use other arm to hold it out. Doing band exercises with YTB at home 3x10 daily. Doing Leg strength daily, balance is awful but still using cane out and about, Fearful of falling but only uses walker at home on maain floor despite my warning. Doctor said live with it, meds or surgery. Pain R shoulder: Pain Intensity (Out of 10): 0 Back: Pain Intensity (Out of 10): 8 Overall Improvement % Improvement: 0 Objective Objective/Function: 130 AROM SLA felxion, painful arc at 90 and LLA flexion not past 85. er is 40 on R and IR is painful butto L5. Balance seems better and more confident today but still recommend continuing exerciseds at home and 100% complainc with wh walker(using cane into PT today) Goals Goal 1:: 130 flexion R shoulder and hand behind head without pain >1/10 Goal Progress: Goal Met SLA Goal 2:: Pt feel shoulder pain 1/10 at worst adn 80% better Goal Progress: Not Progressing Goal 3:: sleep without waking due to shoulder pain Goal Progress: Not Progressing Goal 4:: quickdash score 16 or less Goal Progress: Not Progressing Goal 5:: FGA Goal Progress: Not Progressing Goal 6:: I use of cane 100% of time for safety and I HEP for home based balance, head movement and LE strength exercises. Goal Progress: ex met. Plan Plan: d/c to HEP balance and shoulder strength D/C Information d/c sentence: If there are questions or concerns regarding this patient's physical therapy, please feel free to call me at [phone]. Thank you for the referral of this patient. Sincerely, Doni Flores, DPT, OCS, CSCS Balance/Gait/Functional tests Balance/Special Test Scores Functional Gait Assessment Score: 19 % Disability: 36.6700 CATSIB Score (Max score 120 seconds): 105 Quick DASH Score: 47.7250 Improvement % Improvement: 0 11/28/23 1118 CC: Dr. Daniel Lee MD; Dr. Harish Luis MD EBG Signed Normal [facility] Orthopedic Visit Reporton Orthopedic Visit Report [facility] [address] [place] [address] OFFICE VISIT Date of Service: 11/02/23 MR#: [id number] Acct: [id number] Name: CAROL ZARAGOZA Rep #: [id number] : 1950 Provider: Dr. Daniel angelo MD Age/Sex: 73/F Location: [facility] Status: Signed Intake Vital Signs 10/26/23 15:30 11/02/23 08:56 Height 5 ft 1.81 in 5 ft 1 in Weight: 110 lb BMI 20.7 Intake Visit Reasons: RIGHT SHOULDER Chief Complaint: Right shoulder injury, pain Accompanied by: Self Is patient in pain?: No Allergies Penicillins Allergy (Verified 11/02/23 08:54) Rash Medications ???Medication ???Instructions ???Recorded ???Confirmed ???Type buspirone 7.5 mg tablet 7.5 mg PO BID Check with primary 02/17/20 11/02/23 History doctor clonazepam 1 mg tablet 1 mg PO TID anxiety 02/17/20 11/02/23 History gabapentin 400 mg capsule 400 mg PO Q6H Check with primary 04/20/22 11/02/23 History doctor acetaminophen 325 mg tablet 650 mg (2 x 325 mg) PO Q6H PRN PRN 08/02/22 11/02/23 Rx Pain 1-10 Or Fever >100.7 #0 tabs doxepin 150 mg capsule 150 mg PO QHS 07/30/23 11/02/23 History metoprolol succinate 25 mg 25 mg PO DAILY 07/30/23 11/02/23 History tablet,extended release 24 hr omeprazole 20 mg capsule,delayed 20 mg PO DAILY 07/30/23 11/02/23 History release apixaban 5 mg tablet (Eliquis) 5 mg PO BID #60 tabs 08/04/23 11/02/23 Rx Have you fallen in the past year?: Yes (07/27/23 right shoulder injury) [facility] Medical History Hypoxia Fracture of humeral head [...] on both sides Chronic lower back pain Surgical History History of cardiac catheterization Hx of dilation and curettage History of 2 sections Hx of surgical procedure History of lumbar laminectomy Family History Mother Hypertension CVA (cerebral vascular accident) Heart disease Cerebral hemorrhage Father Cancer Hx stomach cancer and leukemia. Social History household members: spouse housing: house number of children: 2 Smoking Status: Current every day smoker tobacco type: e-cigarettes alcohol intake: never substance use type: does not use what type of physical activity do you participate in: none additional social history: Currently ambulating with a cane HPI RIGHT SHOULDER Details: This documentation accurately reflects the service provided and the decisions made by me, Dr. Daniel Lee MD 11/02/23 0851. Part of today???s visit was documented by [ ], acting as scribe. CAROL ZARAGOZA is a 73 year old F here today for about 4 months following up right greater tuberosity fracture. The patient at the time had a pulmonary embolism the patient is still on Eliquis. Following with Dr. Luis for that. I reviewed the physical therapy notes states the patient has multiple falls and a very poor memory asking the same question multiple times. That is been my experience with the patient as well the patient is not here with her today unsure what the is doing going to run errands she states. Patient has some crepitus and grinding and difficulty lifting up the shoulder. Ortho Exam General General: Yes no acute distress Neurologic: Yes alert and Yes oriented x3 Psychologic: Yes reasonable and appropriate Right Shoulder Skin/Wound: Yes CDI, Yes ecchymosis, No erythema and No swelling SHOULDER: nvi to ax, mru and ain/pin Active forward elevation 40 degrees passively 110 degrees. External rotation 20 degrees. Strength in forward elevation quite poor 4 -/5 Coding Level of Care Code Off vis,est,level 3 Diagnoses Closed fracture of greater tuberosity of right humerus S42.251A Assessment and Plan Assessment and Plan (1) Closed frac (more content not included)... Normal [facility] Re-Evaluation - PT (1)on Re-Evaluation - PT (1) [facility] Physical Therapy [facility] [address] [place] [address] / REEVALUATION / MEDICARE RECERTIFICATION PHYSICAL THERAPY MR#: [id number] Acct: [id number] Name: CAROL ZARAGOZA Rep #: [id number] : 1950 73 From: Doni Flores DPT, OCS, CSCS Referring Dr.: Dr. Daniel Lee MD Status:REG RCR Insurance: [facility] MEDIC[employer] SELF PAY INSURANCE Re-Evaluation Intro: Dr. Daniel Lee MD, It has been my pleasure to treat CAROL ZARAGOZA over the last 12 visits for R shoulder greater tuberosity fracture. Please see the progress note below for an update on the physical therapy plan of care! Subjective Subjective: Saw dr. Lee for shoulder adn recommended surgery or tylenol. Pt does not want surgery unles sit gets worse. Still on Eliquis and was taking alleve. Will get tylenol on way home. Shoulder is not changing. Pain 7/10 with movement or use but comfortable at rest. Shoulder still keeps her up at night, doc gave a sleep medicine. No shoulder exercises at home. Overall shoulder 50% better then starting PT. Balance is not great , falls with walking sometimes. Last fall was 5 days ago losing balance walking into kitchen and not suing cane. Uses walker at times at home but was not at that time. Objective Objective/Function: Shoulder R AROM 80 and painful arc but PROM to 155, can hold it there and lower slowly but painful arc. ER is 35 and strength 3- flexion 3 er, 3+ IR, Has full IR R shoulder. Pt is hunched over with gait but that is normal for her scoliosis. She stumbles once with cane today catching L foot but self recover, slow and labored with cane, not safe with cane, much safer and faster and more comfortable with wh walker. New goals: 1. I appropr home balance and shoulder program to minimize future problems 2. Compliant with 100% use wh walker to reduce fall risk Fair prognsosi for these goals with compliance. Plan Plan Plan: 2x/week new POC for shoulder ROM exercises on wall and band strength to HEP sitting with pics. Not a good prognosis for pain or funciton but needs to ex at home to limit digression. Also please teach weeight shift balance ex adn pregait balance and get to I home program with pics, Encourage 100% use of wh walker. Fair prognosis for I with exercises. Balance/Gait/Functional tests Balance/Special Test Scores Functional Gait Assessment Score: 19 % Disability: 36.6700 CATSIB Score (Max score 120 seconds): 105 Quick DASH Score: 56.8175 Goals Goals Goal 1:: 130 flexion R shoulder and hand behind head without pain >1/10 Goal Time Frame: 4-6 Weeks Goal Progress: Not Progressing Goal 2:: Pt feel shoulder pain 1/10 at worst adn 80% better Goal Time Frame: 4-6 Weeks Goal Progress: Not Progressing Goal 3:: sleep without waking due to shoulder pain Goal Time Frame: 4-6 Weeks Goal Progress: Not Progressing Goal 4:: quickdash score 16 or less Goal Time Frame: 4-6 Weeks Goal Progress: Not Progressing Goal 5:: FGA Goal Time Frame: 4-6 Weeks Goal Progress: Not Progressing Goal 6:: I use of cane 100% of time for safety and I HEP for home based balance, head movement and LE strength exercises. Goal Time Frame: 4-6 Weeks Goal Progress: Not Progressing Anticipated Interventions Anticipated Interventions Patient/Client Instruction: Educate patient on: Condition, Plan of Care and Risk Factors For the Purpose of:: To decrease pain, To decrease swelling/inflammation, To increase ROM and To improve nutrient delivery to tissue Therapeutic Exercise to Include: Strength training, Passive ROM and Active ROM For the Purpose of:: To decrease pain, To increase ROM, To improve nutrient delivery to tissue, To improve ability to perform ADL's, To increase tolerance to activity/condition/position , To improve ability of physical actions for home/community/work/leisure and To improve gait and locomotor functions Manual Therapy Techniques to Include: Passive ROM and Soft tissue mobilization For the Purpose of:: To decrease pain, To increase ROM and To improve nutrient delivery to tissue Cryotherapy (ice pack, ice massage): Yes For the Purpose of:: To decrease pain and To decrease swelling/inflammation Re-Evaluation Ending Re-evaluation ending: Please do not hesitate to contact me at [phone] by phone or if you have questions or concerns regarding this new plan of care! Sincerely, Doni Flores DPT, OCS, CSCS 11/02/23 1055 CC: Dr. Daniel Lee MD; Dr. Harish Luis MD EBG Signed For Medicare only, by signing this I certify the plan of care. _ Physicians Signature Date Normal [facility] Re-Evaluation - PT (1)on Re-Evaluation - PT (1) [facility] Physical Therapy [facility] [address] [place] [address] / REEVALUATION / MEDICARE RECERTIFICATION PHYSICAL THERAPY MR#: [id number] Acct: [id number] Name: CAROL ZARAGOZA Rep #: [id number] : 1950 73 From: Doni Flores DPT, OCS, CSCS Referring Dr.: Dr. Daniel Lee MD Status:REG RCR Insurance: [facility] MEDICARE SELF PAY INSURANCE Re-Evaluation Intro: Dr. Daniel Lee MD, It has been my pleasure to treat CAROL ZARAGOZA over the last 11 visits for R shoulder greater tuberosity fracture. Please see the progress note below for an update on the physical therapy plan of care! Subjective Subjective: 09/25 with arm movements and is no better than day one with this pain. is painfree at rest. Toelrating ex well but not improving.Got an appointment with Dr. Lee on Sunday next week. Fell 3x today and does not know why. has a wh walker at home but not using. Objective Objective/Function: AROM R shoulder 65 degrees and not improving, painful to lift and painful arc. PROM to 140 and can hold it but lowering it down is miserably painful. Ext rotation strength poor and painful. IR 4-. Dysfinctional shoulder aROM R and patient very much focussed on pain despite ebing comfortable at rest. may have some demntia or memory loss as she keeps asking multiple times what Dr. Lee is going to do. Unable to stand up tall without support for longer than 30 seconds before her spine flexes FW nearly 75 degrees. Pt states she fell 3x today without reason so recommended 100% compliance with wh walker. Will continue to work on her balance from Dr. Luis but wait to see Jesus's recommendation/options on R shoulder which is not improving significantly. Plan Plan Plan: continue shoulder and balance exercises unless other plan from Dr. Lee for shoulder. Balance/Gait/Functional tests Balance/Special Test Scores Functional Gait Assessment Score: 19 % Disability: 36.6700 CATSIB Score (Max score 120 seconds): 105 Quick DASH Score: 56.8175 Goals Goals Goal 1:: 130 flexion R shoulder and hand behind head without pain >1/10 Goal Time Frame: 4-6 Weeks Goal Progress: Progressing Goal 2:: Pt feel shoulder pain 1/10 at worst adn 80% better Goal Time Frame: 4-6 Weeks Goal Progress: slow Goal 3:: sleep without waking due to shoulder pain Goal Time Frame: 4-6 Weeks Goal Progress: Not Progressing Goal 4:: quickdash score 16 or less Goal Time Frame: 4-6 Weeks Goal 5:: FGA Goal Time Frame: 4-6 Weeks Goal Progress: NEW Goal 6:: I use of cane 100% of time for safety and I HEP for home based balance, head movement and LE strength exercises. Goal Time Frame: 4-6 Weeks Anticipated Interventions Anticipated Interventions Patient/Client Instruction: Educate patient on: Condition, Plan of Care and Risk Factors For the Purpose of:: To decrease pain, To decrease swelling/inflammation, To increase ROM and To improve nutrient delivery to tissue Therapeutic Exercise to Include: Strength training, Passive ROM and Active ROM For the Purpose of:: To decrease pain, To increase ROM, To improve nutrient delivery to tissue, To improve ability to perform ADL's, To increase tolerance to activity/condition/position , To improve ability of physical actions for home/community/work/leisure and To improve gait and locomotor functions Manual Therapy Techniques to Include: Passive ROM and Soft tissue mobilization For the Purpose of:: To decrease pain, To increase ROM and To improve nutrient delivery to tissue Cryotherapy (ice pack, ice massage): Yes For the Purpose of:: To decrease pain and To decrease swelling/inflammation Re-Evaluation Ending Re-evaluation ending: Please do not hesitate to contact me at [phone] by phone or if you have questions or concerns regarding this new plan of care! Sincerely, JOSE PeckT, OCS, CSCS 09/27/23 7224 CC: Dr. Daniel Lee MD; Dr. Harish Luis MD EBG Signed For Medicare only, by signing this I certify the plan of care. _ Physicians Signature Date Normal [facility] Absolute lymphocyte countOrd ered By: Tony Haque on 07-30-2023 Lymphocytes Auto (Unsp spec) [#/Vol] 0.79 10*3/uL 0.83-4.51 [facility] Automated lymphocyte count a s percentage of total leukocytesOrdered By: Tony Haque on 07-30-2023 Lymphocytes/100 WBC Auto (Unsp spec) 8.8 % 19-41 [facility] Base excessOrdered By: Guilherme Collins on 07-30-2023 Base excess Calc (BldV) [Moles/Vol] -2 mmol/L -1.0-3.5 [facility] Basophil percentageOrdered B y: Tony Haque on 07-30-2023 Basophil percentage 0 SEEN /hpf 0-5 [facility] Ammonia (P) [Moles/Vol] 27.0 umol/L 11-32 [facility] Basophils/100 WBC (Bld) 0.3 % 0-1 [facility] Chloride [Moles/Vol] 108 mmol/L 98-107 [facility] Eosinophils/100 WBC (Bld) 0.2 % 0-5 [facility] Glucose [Mass/Vol] 110 mg/dL 74-106 [facility] Comment on above: Fasting Glucose resu lt from 100 to 125 mg/dL suggests IMPAIRED HOMEOSTASIS per A.D.A. criteria. Hemoglobin (Bld) [Mass/Vol] 10.9 g/dL 12.0-15.0 [facility] Lactate [Moles/Vol] 3.4 mmol/L 0.4-2.0 [facility] Comment on above: Critical Result(s) C alled at: 14:41:53 07/30/2023 by: Ramiro Stephenson RN (ER). Results read back by same. Monocytes/100 WBC (Bld) 8.2 % 0-10 [facility] Neutrophils (Bld) [#/Vol] 7.4 10*3/uL 2.0-7.7 [facility] Neutrophils/100 WBC (Bld) 81.8 % 47-70 [facility] Potassium [Moles/Vol] 3.4 mmol/L 3.5-5.1 [facility] Sodium [Moles/Vol] 139 mmol/L 136-145 [facility] WBC (Bld) [#/Vol] 9.0 10*3/uL 4.4-11.0 [facility] Bilirubin Test strip Ql (U)O rdered By: Tony Haque on 07-30-2023 Bilirubin Ql (U) 1 mg/dL Negative [facility] Comment on above: COLOR OF URINE MAY A FFECT DIPSTICK RESULTS. Blood manual differential co mment interpretation (narrative result)Ordered By: Tony Haque on 07-30-2023 Manual differential comment [place] (Bld) [Interp] See comment [facility] Comment on above: BANDS NOTED CO2 (BldV) [Moles/Vol]Ordere d By: Guilherme Collins on 07-30-2023 CO2 [Moles/Vol] 23 mmol/L 23-33 [facility] Determination of erythrocyte mean corpuscular volume (MCV)Ordered By: Tony Haque on 07-30-2023 MCV (RBC) [Entitic vol] 96.8 fL 81-99 [facility] Erythrocyte distribution wid th ratioOrdered By: Tony Haque on 07-30-2023 Erythrocyte distribution width (RBC) [Ratio] 13.7 % 11.6-14.6 [facility] Erythrocyte distribution wid th standard deviationOrdered By: Tony Haque on 07-30-2023 Erythrocyte distribution width (RBC) [Entitic vol] 48.8 fL 35.1-43.9 [facility] Hematocrit Auto (Bld) [Volum e fraction]Ordered By: Tony Haque on 07-30-2023 Hematocrit (Bld) [Volume fraction] 33.8 % 37-47 [facility] Immature granulocytes/100 WB C Auto (Bld)Ordered By: Tony Haque on 07-30-2023 Immature granulocytes/100 WBC (Bld) 0.700 % 0.0-0.9 [facility] Comment on above: IG% - Immature Granu locytes (promyelocytes, myelocytes and metamyelocytes) > 1% indicates that a LEFT SHIFT is Present. Ketones Test strip Ql (U)Ord ered By: Tony Haque on 07-30-2023 Ketones Ql (U) 5 mg/dl Negative [facility] Laboratory - Chemistry and C hemistry - challengeOrdered By: Anastasia Khan on 07-30-2023 Magnesium [Mass/Vol] 1.7 mg/dL 1.6-2.6 [facility] Natriuretic peptide B (Bld) [Mass/Vol] 88.3 pg/mL 0-100 [facility] Laboratory - Chemistry and C hemistry - challengeOrdered By: Guilherme Collins on 07-30-2023 HCO3 (Bld) [Moles/Vol] 22 mmol/L 22-26 [facility] Laboratory - Chemistry and C hemistry - challengeOrdered By: Tony Haque on 07-30-2023 CO2 [Moles/Vol] 22.0 mmol/L 21.0-32.0 [facility] Urea nitrogen/Creatinine [Mass ratio] 12.1 mg/mg 10-20 [facility] Laboratory - Drug toxicology Ordered By: Tony Haque on 07-30-2023 Amphetamines Ql (U) Negative <1000 ng/mL [facility] Benzodiazepines Ql (U) Positive < 200 ng/mL [facility] Cannabinoids Screen Ql (U) Negative < 50 ng/mL [facility] Cocaine Ql (U) Negative < 300 ng/mL [facility] Opiates Ql (U) Negative < 300 ng/mL [facility] Laboratory - Hematology and Cell countsOrdered By: Tony Haque on 07-30-2023 MCH (RBC) [Entitic mass] 31.2 pg 27.0-32.0 [facility] MCHC (RBC) [Mass/Vol] 32.2 g/dL 32-36 [facility] Nucleated RBC/100 WBC (Bld) [Ratio] 0 % 0-5 [facility] Platelet mean volume (Bld) [Entitic vol] 10.6 fL 6.2-12.0 [facility] Platelets (Bld) [#/Vol] 317 10*3/uL 150-450 [facility] Laboratory - Microbiology an d Antimicrobial susceptibilityOrdered By: Tony Haque on 07-30-2023 SARS-CoV-2 (COVID-19) RNA ANTIONE+probe Ql (Unsp spec) [facility] Mucus LM Ql (Urine sed)Order ed By: Tony Haque on 07-30-2023 Mucus Ql (Urine sed) 0 SEEN /hpf [facility] Nitrite Test strip Ql (U)Ord ered By: Tony Haque on 07-30-2023 Nitrite Ql (U) Negative Negative [facility] No Panel InformationOrdered By: Tony Haque on 07-30-2023 MDMA (Ecstasy) Screen Negative < 500 ng/mL [facility] Urine Barbiturates Screen Negative < 200 ng/mL [facility] Urine Drug Screen Comment [facility] Comment on above: CONFIRMATORY TESTING FOR ALL [...] Urine Methadone Screen Negative < 300 ng/mL [facility] Urine RBC 0 SEEN /hpf 0-5 [facility] D-Dimer Quantitative (PE/DVT) 3.19 FEU/ug/m 0.27-0.49 [facility] Comment on above: D-Dimer ELEVATED (>0 .49): Additional studies and clinicalassessments are indicated to conclude diagnosis of:Deep Vein Thrombosis (DVT) or Pulmonary Embolism (PE) Estimated Creatinine Clearance Calc 22.77 ml/min [facility] Estimated GFR (MDRD) Amer 37 mL/min >60 [facility] Comment on above: GFR Calc Estimated GFR (MDRD) Non-Af Amer 31 mL/min >60 [facility] Comment on above: Non- GFR Calc Troponin I High Sensitivity 6 pg/mL 3.0-54.0 [facility] Comment on above: Please Note: New Nu t Units and Gender Specific Reference Ranges. For more information see Policy Stat Procedure [place] High Sensitivity Troponin (TNIH) and attachments. No Panel InformationOrdered By: Guilherme Collins on 07-30-2023 Blood Gas Oxygen Percent 21.0 [facility] Blood Gas Sample Site Not entered [facility] Blood Gas Specimen Type [place] [facility] Oxygen Delivery Device Not entered [facility] PCO2 venousOrdered By: Guilherme Collins on 07-30-2023 CO2 (BldV) [Partial pressure] 29.8 mm[Hg] 41-51 [facility] PO2 venousOrdered By: Guilherme reyes on 07-30-2023 Oxygen (BldV) [Partial pressure] 73 mm[Hg] 25-40 [facility] Protein Test strip Ql (U)Ord ered By: Tony Haque on 07-30-2023 Protein Ql (U) 15 mg/dl Negative [facility] RBC Auto (Bld) [#/Vol]Ordere d By: Tony Haque on 07-30-2023 RBC (Bld) [#/Vol] 3.49 10*6/uL 4.2-5.4 [facility] Review by pathologistOrdered By: Tony Haque on 07-30-2023 Pathologist review [place] (Unsp spec) [Interp] May foll [facility] Serum or plasma calcium rosangela urement (mass/volume)Ordered By: Tony Haque on 07-30-2023 Calcium [Mass/Vol] 8.6 mg/dL 8.5-10.1 [facility] Serum or plasma creatinine m easurement (mass/volume)Ordered By: Tony Haque on 07-30-2023 Creatinine [Mass/Vol] 1.74 mg/dL 0.55-1.02 [facility] Comment on above: The validity of the calculated GFR & GFRAA in patients over 70 years has not been determined. Clinical correlation is essential. Serum or plasma urea nitroge n measurement (mass/volume)Ordered By: Tony Haque on 07-30-2023 Urea nitrogen [Mass/Vol] 21 mg/dL 7-18 [facility] Smudge cell detectionOrdered By: Tony Haque on 07-30-2023 Smudge cells LM Ql (Bld) 1+ [facility] Squamous epithelial cells de tection in urine sediment by light microscopyOrdered By: Tony Haque on 07-30-2023 Epithelial cells.squamous LM Ql (Urine sed) 0 SEEN /hpf 5-10 [facility] Thin prep Papanicolaou smear with manual screeningOrdered By: Tony Haque on 07-30-2023 Thin prep Papanicolaou smear with manual screening 9 5-15 [facility] Urine blood detectionOrdered By: Tony Haque on 07-30-2023 RBC Ql (U) Negative Negative [facility] Urine clarityOrdered By: Marixa Haque on 07-30-2023 Clarity (U) Clear Clear [facility] Urine color determinationOrd ered By: Tony Haque on 07-30-2023 Color (U) Yellow Yellow [facility] Urine glucose detectionOrder ed By: Tony Haque on 07-30-2023 Glucose Ql (U) Normal mg/dl Normal [facility] Urine leukocyte esterase det ection by dipstickOrdered By: Tony Haqeu on 07-30-2023 Leukocyte esterase Test strip Ql (U) 25 /ul Negative [facility] Urine pHOrdered By: Tony mariscal on 07-30-2023 pH (U) 5.0 [pH] 5.0 - 8.0 [facility] Urine phencyclidine (PCP) de tectionOrdered By: Tony Haque on 07-30-2023 Phencyclidine Ql (U) Negative < 25 ng/mL [facility] Urine sediment bacteria coun t by microscopy (number/high power field)Ordered By: Tony Haque on 07-30-2023 Bacteria LM.HPF (Urine sed) [#/Area] 0 /[HPF] None Seen [facility] Urine specific gravity measu rementOrdered By: Tony Haque on 07-30-2023 Specific gravity (U) [Rel density] 1.020 1.002-1.03 0 [facility] Urine urobilinogen measureme ntOrdered By: Tony Haque on 07-30-2023 Urobilinogen Ql (U) 1 mg/dl Normal [facility] Venous blood pH measurementO rdered By: Guilherme Collins on 07-30-2023 pH (BldV) 7.47 [pH] 7.32-7.42 [facility] Vital signsOrdered By: Guilherme Collins on 07-30-2023 Oxygen saturation in Blood 96 % 50-70 [facility] Absolute lymphocyte countOrd ered By: Harish Luis on 07-11-2023 Lymphocytes Auto (Unsp spec) [#/Vol] 1.63 10*3/uL 0.83-4.51 [facility] Automated lymphocyte count a s percentage of total leukocytesOrdered By: Harish Luis on 07-11-2023 Lymphocytes/100 WBC Auto (Unsp spec) 26.4 % 19-41 [facility] Basophil percentageOrdered B y: Harish Luis on 07-11-2023 Basophils/100 WBC (Bld) 1.0 % 0-1 [facility] Bilirubin [Mass/Vol] 0.40 mg/dL 0.20-1.00 [facility] Comment on above: For patients on eltr ombopag therapy, use of Dimension [place] TBIL is not recommended. Chloride [Moles/Vol] 109 mmol/L 98-107 [facility] Cholesterol [Mass/Vol] 314 mg/dL <200 [facility] Comment on above: <200 mg/dL Desirable 200-240 mg/dL Borderline >240 mg/dL High Risk Eosinophils/100 WBC (Bld) 2.3 % 0-5 [facility] Glucose [Mass/Vol] 114 mg/dL 74-106 [facility] Comment on above: Fasting Glucose resu lt from 100 to 125 mg/dL suggests IMPAIRED HOMEOSTASIS per A.D.A. criteria. Hemoglobin (Bld) [Mass/Vol] 12.9 g/dL 12.0-15.0 [facility] Monocytes/100 WBC (Bld) 6.5 % 0-10 [facility] Neutrophils (Bld) [#/Vol] 3.9 10*3/uL 2.0-7.7 [facility] Neutrophils/100 WBC (Bld) 63.3 % 47-70 [facility] Potassium [Moles/Vol] 3.6 mmol/L 3.5-5.1 [facility] Protein [Mass/Vol] 7.2 g/dL 6.4-8.2 [facility] Sodium [Moles/Vol] 141 mmol/L 136-145 [facility] Triglyceride [Mass/Vol] 135 mg/dL <199 [facility] Comment on above: The drugs N-Acetylcy steine and Metamizole may falsely depress this assay.Serum Triglycerides Reference Interval Normal <150 mg/dL Borderline high 150 - 199 mg/dL High 200 - 499 mg/dL Very High > or = 500 mg/dL WBC (Bld) [#/Vol] 6.2 10*3/uL 4.4-11.0 [facility] Determination of erythrocyte mean corpuscular volume (MCV)Ordered By: Harish Luis on 07-11-2023 MCV (RBC) [Entitic vol] 97.6 fL 81-99 [facility] Erythrocyte distribution wid th ratioOrdered By: Harish Luis on 07-11-2023 Erythrocyte distribution width (RBC) [Ratio] 14.1 % 11.6-14.6 [facility] Erythrocyte distribution wid th standard deviationOrdered By: Harish Luis on 07-11-2023 Erythrocyte distribution width (RBC) [Entitic vol] 51.5 fL 35.1-43.9 [facility] Hematocrit Auto (Bld) [Volum e fraction]Ordered By: Harish Luis on 07-11-2023 Hematocrit (Bld) [Volume fraction] 40.7 % 37-47 [facility] Immature granulocytes/100 WB C Auto (Bld)Ordered By: Harish Luis on 07-11-2023 Immature granulocytes/100 WBC (Bld) 0.500 % 0.0-0.9 [facility] Comment on above: IG% - Immature Granu locytes (promyelocytes, myelocytes and metamyelocytes) > 1% indicates that a LEFT SHIFT is Present. Laboratory - Chemistry and C hemistry - challengeOrdered By: Harish Luis on 07-11-2023 Albumin/Globulin [Mass ratio] 0.8 {ratio} 0.9-2.4 [facility] ALP [Catalytic activity/Vol] 103 U/L 45-117 [facility] ALT [Catalytic activity/Vol] 26 U/L 13-56 [facility] Cholesterol in HDL [Mass/Vol] 79 mg/dL >40 [facility] Comment on above: The drugs N-Acetylcy steine and Metamizole may falsely depress this assay. Reference Range HDL <40 mg/dL Low HDL Cholesterol HDL >or= 60 mg/dL High HDL Cholesterol Cholesterol in LDL [Mass/Vol] 208 mg/dL 0-130 [facility] CO2 [Moles/Vol] 26.0 mmol/L 21.0-32.0 [facility] Globulin (S) [Mass/Vol] 4.1 g/dL 2.2-4.2 [facility] Urea nitrogen/Creatinine [Mass ratio] 8.4 mg/mg 10-20 [facility] Laboratory - Hematology and Cell countsOrdered By: Harish Luis on 07-11-2023 MCH (RBC) [Entitic mass] 30.9 pg 27.0-32.0 [facility] MCHC (RBC) [Mass/Vol] 31.7 g/dL 32-36 [facility] Nucleated RBC/100 WBC (Bld) [Ratio] 0 % 0-5 [facility] Platelet mean volume (Bld) [Entitic vol] 9.7 fL 6.2-12.0 [facility] Platelets (Bld) [#/Vol] 433 10*3/uL 150-450 [facility] No Panel InformationOrdered By: Harish Luis on 07-11-2023 Estimated GFR (MDRD) Amer 74 mL/min >60 [facility] Comment on above: GFR Calc Estimated GFR (MDRD) Non-Af Amer 61 mL/min >60 [facility] Comment on above: Non- GFR Calc Vitamin D 25-Hydroxy 24.5 ng/mL [facility] Comment on above: Vitamin D 25(OH) Sta tus Range Deficiency <20 ng/mL (50nmol/L) Insufficiency 20 - 30 ng/mL (50 - 75 nmol/L) Sufficiency 30 - 100 ng/mL (75 - 250 nmol/L) Toxicity >100 ng/mL (>250 nmol/L) VLDL Cholesterol 27 mg/dL 5-40 [facility] RBC Auto (Bld) [#/Vol]Ordere d By: Harish Luis on 07-11-2023 RBC (Bld) [#/Vol] 4.17 10*6/uL 4.2-5.4 [facility] Serum or plasma calcium rosangela urement (mass/volume)Ordered By: Harish Luis on 07-11-2023 Calcium [Mass/Vol] 8.8 mg/dL 8.5-10.1 [facility] Serum or plasma creatinine m easurement (mass/volume)Ordered By: Harish Luis on 07-11-2023 Creatinine [Mass/Vol] 0.96 mg/dL 0.55-1.02 [facility] Comment on above: The validity of the calculated GFR & GFRAA in patients over 70 years has not been determined. Clinical correlation is essential. Serum or plasma thyroid stim ulating hormone (TSH) measurement (units/volume)Ordered By: Harish Luis on 07-11-2023 TSH Qn 0.92 uIU/mL 0.358-3.74 [facility] Serum or plasma urea nitroge n measurement (mass/volume)Ordered By: Harish Luis on 07-11-2023 Urea nitrogen [Mass/Vol] 8 mg/dL 7-18 [facility] Thin prep Papanicolaou smear with manual screeningOrdered By: Harish Luis on 07-11-2023 Thin prep Papanicolaou smear with manual screening 3.1 g/dL 3.2-5.0 [facility] Thin prep Papanicolaou smear with manual screening 18 U/L 15-37 [facility] Thin prep Papanicolaou smear with manual screening 6 5-15 [facility] Culture, urineOrdered By: Levar Luis on 06-27-2023 Bacteria identified Cx Nom (U) Staphylococcus simulans [facility] Absolute lymphocyte countOrd ered By: Harish Luis on 01-01-2023 Lymphocytes Auto (Unsp spec) [#/Vol] 1.14 10*3/uL 0.83-4.51 [facility] Basophil percentageOrdered B y: Harish Luis on 01-01-2023 Basophils/100 WBC (Bld) 0.8 % 0-1 [facility] Bilirubin [Mass/Vol] 0.40 mg/dL 0.20-1.00 [facility] Comment on above: For patients on eltr ombopag therapy, use of Dimension [place] TBIL is not recommended. Chloride [Moles/Vol] 113 mmol/L 98-107 [facility] Eosinophils/100 WBC (Bld) 1.7 % 0-5 [facility] Glucose [Mass/Vol] 124 mg/dL 74-106 [facility] Comment on above: Fasting Glucose resu lt from 100 to 125 mg/dL suggests IMPAIRED HOMEOSTASIS per A.D.A. criteria. Neutrophils (Bld) [#/Vol] 4.5 10*3/uL 2.0-7.7 [facility] Neutrophils/100 WBC (Bld) 72.0 % 47-70 [facility] Potassium [Moles/Vol] 3.3 mmol/L 3.5-5.1 [facility] Protein [Mass/Vol] 6.4 g/dL 6.4-8.2 [facility] Sodium [Moles/Vol] 144 mmol/L 136-145 [facility] WBC (Bld) [#/Vol] 6.3 10*3/uL 4.4-11.0 [facility] Blood erythrocytes count (nu mber/volume)Ordered By: Harish Luis on 01-01-2023 RBC (Bld) [#/Vol] 3.99 10*6/uL 4.2-5.4 [facility] Blood hemoglobin measurement (mass/volume)Ordered By: Harish Luis on 01-01-2023 Hemoglobin (Bld) [Mass/Vol] 12.7 g/dL 12.0-15.0 [facility] Blood lymphocytes/100 leukoc ytesOrdered By: Harish Luis on 01-01-2023 Lymphocytes/100 WBC (Bld) 18.1 % 19-41 [facility] Blood monocytes/100 leukocyt esOrdered By: [facility]y on 01-01-2023 Monocytes/100 WBC (Bld) 7.2 % 0-10 [facility] Blood platelet mean volumeOr dered By: [facility] on 01-01-2023 Platelet mean volume (Bld) [Entitic vol] 10.2 fL 6.2-12.0 [facility] Determination of erythrocyte mean corpuscular volume (MCV)[facility] MCV (RBC) [Entitic vol] 96.7 fL 81-99 [facility] Hematocrit Auto (Bld) [Volum e fraction]Ordered By: [facility] on 01-01-2023 Hematocrit (Bld) [Volume fraction] 38.6 % 37-47 [facility] Laboratory - Chemistry and C hemistry - challengeOrdered By: [facility] on 01-01-2023 ALP [Catalytic activity/Vol] 106 U/L 45-117 [facility] ALT [Catalytic activity/Vol] 14 U/L 13-56 [facility] CO2 [Moles/Vol] 22.0 mmol/L 21.0-32.0 [facility] Globulin (S) [Mass/Vol] 3.6 g/dL 2.2-4.2 [facility] Urea nitrogen/Creatinine [Mass ratio] 8.0 mg/mg 10-20 [facility] Laboratory - Hematology and Cell countsOrdered By: [facility] on 01-01-2023 Erythrocyte distribution width (RBC) [Entitic vol] 49.0 fL 35.1-43.9 [facility] Erythrocyte distribution width (RBC) [Ratio] 13.7 % 11.6-14.6 [facility] Immature granulocytes/100 WBC (Bld) 0.200 % 0.0-0.9 [facility] Comment on above: IG% - Immature Granu locytes (promyelocytes, myelocytes and metamyelocytes) > 1% indicates that a LEFT SHIFT is Present. MCH (RBC) [Entitic mass] 31.8 pg 27.0-32.0 [facility] Nucleated RBC/100 WBC (Bld) [Ratio] 0 % 0-5 [facility] MCHC Auto (RBC) [Mass/Vol]Or dered By: Harish Luis on 01-01-2023 MCHC (RBC) [Mass/Vol] 32.9 g/dL 32-36 [facility] No Panel InformationOrdered By: Harish Luis on 01-01-2023 Estimated GFR (MDRD) Amer 61 mL/min >60 [facility] Comment on above: GFR Calc Estimated GFR (MDRD) Non-Af Amer 51 mL/min >60 [facility] Comment on above: Non- GFR Calc Thyroid Stimulating Hormone (TSH) 0.17 uIU/mL 0.358-3.74 [facility] Vitamin D 25-Hydroxy 39.2 ng/mL [facility] Comment on above: Vitamin D 25(OH) Sta tus Range Deficiency <20 ng/mL (50nmol/L) Insufficiency 20 - 30 ng/mL (50 - 75 nmol/L) Sufficiency 30 - 100 ng/mL (75 - 250 nmol/L) Toxicity >100 ng/mL (>250 nmol/L) Platelets bldOrdered By: Harish Luis on 01-01-2023 Platelets (Bld) [#/Vol] 345 10*3/uL 150-450 [facility] Serum or plasma albumin rosangela urement (mass/volume)Ordered By: Harish Luis on 01-01-2023 Albumin [Mass/Vol] 2.8 g/dL 3.2-5.0 [facility] Serum or plasma albumin/glob ulin mass ratioOrdered By: Harish Luis on 01-01-2023 Albumin/Globulin [Mass ratio] 0.8 {ratio} 0.9-2.4 [facility] Serum or plasma calcium rosangela urement (mass/volume)Ordered By: Harish Luis on 01-01-2023 Calcium [Mass/Vol] 8.5 mg/dL 8.5-10.1 [facility] Serum or plasma creatinine m easurement (mass/volume)Ordered By: Harish Luis on 01-01-2023 Creatinine [Mass/Vol] 1.12 mg/dL 0.55-1.02 [facility] Comment on above: The validity of the calculated GFR & GFRAA in patients over 70 years has not been determined. Clinical correlation is essential. Serum or plasma urea nitroge n measurement (mass/volume)Ordered By: Harish Luis on 01-01-2023 Urea nitrogen [Mass/Vol] 9 mg/dL 7-18 [facility] Thin prep Papanicolaou smear with manual screeningOrdered By: Harish Luis on 01-01-2023 Thin prep Papanicolaou smear with manual screening 12 U/L 15-37 [facility] Thin prep Papanicolaou smear with manual screening 9 5-15 [facility] Basophil percentageOrdered B y: Jesse Camejo on 11-04-2022 Chloride [Moles/Vol] 117 mmol/L 98-107 [facility] Glucose [Mass/Vol] 105 mg/dL 74-106 [facility] Comment on above: Fasting Glucose resu lt from 100 to 125 mg/dL suggests IMPAIRED HOMEOSTASIS per A.D.A. criteria. Potassium [Moles/Vol] 3.4 mmol/L 3.5-5.1 [facility] Sodium [Moles/Vol] 145 mmol/L 136-145 [facility] Laboratory - Chemistry and C hemistry - challengeOrdered By: Jesse Camejo on 11-04-2022 CO2 [Moles/Vol] 24.0 mmol/L 21.0-32.0 [facility] Urea nitrogen/Creatinine [Mass ratio] 6.3 mg/mg 10- [facility] No Panel InformationOrdered By: Jesse Camejo on 11-04-2022 Estimated Creatinine Clearance Calc 39.02 ml/min [facility] Estimated GFR (MDRD) Amer 119 mL/min >60 [facility] Comment on above: GFR Calc Estimated GFR (MDRD) Non-Af Amer 98 mL/min >60 [facility] Comment on above: Non- GFR Calc Serum or plasma calcium rosangela urement (mass/volume)Ordered By: Jesse Camejo on 11-04-2022 Calcium [Mass/Vol] 8.3 mg/dL 8.5-10.1 [facility] Serum or plasma creatinine m easurement (mass/volume)Ordered By: Jesse Camejo on 11-04-2022 Creatinine [Mass/Vol] 0.63 mg/dL 0.55-1.02 [facility] Comment on above: The validity of the calculated GFR & GFRAA in patients over 70 years has not been determined. Clinical correlation is essential. Serum or plasma urea nitroge n measurement (mass/volume)Ordered By: Jesse Camejo on 11-04-2022 Urea nitrogen [Mass/Vol] 4 mg/dL 7-18 [facility] Thin prep Papanicolaou smear with manual screeningOrdered By: Jesse Camejo on 11-04-2022 Thin prep Papanicolaou smear with manual screening 4 5-15 [facility] Absolute lymphocyte countOrd ered By: Jesse Camejo on 11-03-2022 Lymphocytes Auto (Unsp spec) [#/Vol] 1.21 10*3/uL 0.83-4.51 [facility] Basophil percentageOrdered B y: Jesse Camejo on 11-03-2022 Basophils/100 WBC (Bld) 1.3 % 0-1 [facility] Eosinophils/100 WBC (Bld) 4.8 % 0-5 [facility] Neutrophils (Bld) [#/Vol] 1.9 10*3/uL 2.0-7.7 [facility] Neutrophils/100 WBC (Bld) 50.2 % 47-70 [facility] WBC (Bld) [#/Vol] 3.8 10*3/uL 4.4-11.0 [facility] Blood erythrocytes count (nu mber/volume)Ordered By: Jesse Camejo on 11-03-2022 RBC (Bld) [#/Vol] 3.66 10*6/uL 4.2-5.4 [facility] Blood hemoglobin measurement (mass/volume)Ordered By: Jesse Camejo on 11-03-2022 Hemoglobin (Bld) [Mass/Vol] 11.5 g/dL 12.0-15.0 [facility] Blood lymphocytes/100 leukoc ytesOrdered By: Jesse Camejo on 11-03-2022 Lymphocytes/100 WBC (Bld) 32.0 % 19-41 [facility] Blood monocytes/100 leukocyt esOrdered By: Jesse Camejo on 11-03-2022 Monocytes/100 WBC (Bld) 11.4 % 0-10 [facility] Blood platelet mean volumeOr dered By: Jesse Camejo on 11-03-2022 Platelet mean volume (Bld) [Entitic vol] 9.4 fL 6.2-12.0 [facility] Determination of erythrocyte mean corpuscular volume (MCV)Ordered By: Jesse Camejo on 11-03-2022 MCV (RBC) [Entitic vol] 98.6 fL 81-99 [facility] Hematocrit Auto (Bld) [Volum e fraction]Ordered By: Jesse Camejo on 11-03-2022 Hematocrit (Bld) [Volume fraction] 36.1 % 37-47 [facility] INR in Blood by Coagulation assayOrdered By: Ken Johnston on 11-03-2022 INR Coag (Bld) [Relative time] 1.1 {INR} [facility] Laboratory - CoagulationOrde red By: Ken Johnston on 11-03-2022 aPTT Coag (Bld) [Time] 41.4 s 24.1-36.2 [facility] PT Coag (PPP) [Time] 14.7 s 11.7-14.9 [facility] Laboratory - Hematology and Cell countsOrdered By: Jesse Camejo on 11-03-2022 Erythrocyte distribution width (RBC) [Entitic vol] 50.4 fL 35.1-43.9 [facility] Erythrocyte distribution width (RBC) [Ratio] 13.9 % 11.6-14.6 [facility] Immature granulocytes/100 WBC (Bld) 0.300 % 0.0-0.9 [facility] Comment on above: IG% - Immature Granu locytes (promyelocytes, myelocytes and metamyelocytes) > 1% indicates that a LEFT SHIFT is Present. MCH (RBC) [Entitic mass] 31.4 pg 27.0-32.0 [facility] Nucleated RBC/100 WBC (Bld) [Ratio] 0 % 0-5 [facility] MCHC Auto (RBC) [Mass/Vol]Or dered By: Jesse Camejo on 11-03-2022 MCHC (RBC) [Mass/Vol] 31.9 g/dL 32-36 [facility] Platelets bldOrdered By: Eagle Camejo on 11-03-2022 Platelets (Bld) [#/Vol] 368 10*3/uL 150-450 [facility] Basophil percentageOrdered B y: Helena Ann on 11-02-2022 Basophil percentage 2.7 mg/dL 2.5-4.9 [facility] Laboratory - Chemistry and C hemistry - challengeOrdered By: Helena Ann on 11-02-2022 Magnesium [Mass/Vol] 2.2 mg/dL 1.6-2.6 [facility] Absolute lymphocyte countOrd ered By: Armando Miranda on 11-01-2022 Lymphocytes Auto (Unsp spec) [#/Vol] 1.37 10*3/uL 0.83-4.51 [facility] Assessment of wrist artery p atency prior to arterial punctureOrdered By: Armando Miranda on 11-01-2022 Arterial patency Wrist artery --pre arterial puncture Positive [facility] Bacterial cerebrospinal flui d cultureOrdered By: Helena Ann on 11-01-2022 Bacteria identified Cx Nom (CSF) No growth in 72 hours. [facility] Base excessOrdered By: Garrett Miranda on 11-01-2022 Base excess Calc (BldV) [Moles/Vol] -3 mmol/L -2-2 [facility] Basophil percentageOrdered B y: Armando Miranda on 11-01-2022 Basophil percentage 23.0 mmol/L 22-26 [facility] Basophils/100 WBC (Bld) 96 % 95-99 [facility] Basophil percentage 0 SEEN /hpf 0-5 [facility] Lactate [Moles/Vol] 0.9 mmol/L 0.4-2.0 [facility] Basophils/100 WBC (Bld) 1.9 % 0-1 [facility] Bilirubin [Mass/Vol] 0.40 mg/dL 0.20-1.00 [facility] Comment on above: For patients on eltr ombopag therapy, use of Dimension [place] TBIL is not recommended. Chloride [Moles/Vol] 114 mmol/L 98-107 [facility] Eosinophils/100 WBC (Bld) 5.0 % 0-5 [facility] Glucose [Mass/Vol] 100 mg/dL 74-106 [facility] Comment on above: Fasting Glucose resu lt from 100 to 125 mg/dL suggests IMPAIRED HOMEOSTASIS per A.D.A. criteria. Neutrophils (Bld) [#/Vol] 1.6 10*3/uL 2.0-7.7 [facility] Neutrophils/100 WBC (Bld) 44.7 % 47-70 [facility] Potassium [Moles/Vol] 3.7 mmol/L 3.5-5.1 [facility] Protein [Mass/Vol] 6.9 g/dL 6.4-8.2 [facility] Sodium [Moles/Vol] 144 mmol/L 136-145 [facility] WBC (Bld) [#/Vol] 3.6 10*3/uL 4.4-11.0 [facility] Basophil percentageOrdered B y: Helena Ann on 11-01-2022 Ammonia (P) [Moles/Vol] 11.0 umol/L 11-32 [facility] Bilirubin Test strip Ql (U)O rdered By: Armando Miranda on 11-01-2022 Bilirubin Ql (U) Negative Negative [facility] Blood erythrocytes count (nu mber/volume)Ordered By: Armando Miranda on 11-01-2022 RBC (Bld) [#/Vol] 3.87 10*6/uL 4.2-5.4 [facility] Blood hemoglobin measurement (mass/volume)Ordered By: Armando Miranda on 11-01-2022 Hemoglobin (Bld) [Mass/Vol] 12.2 g/dL 12.0-15.0 [facility] Blood lymphocytes/100 leukoc ytesOrdered By: Armando Miranda on 11-01-2022 Lymphocytes/100 WBC (Bld) 38.1 % 19-41 [facility] Blood monocytes/100 leukocyt esOrdered By: Armando Miranda on 11-01-2022 Monocytes/100 WBC (Bld) 10.0 % 0-10 [facility] Blood platelet mean volumeOr dered By: Armando Miranda on 11-01-2022 Platelet mean volume (Bld) [Entitic vol] 9.9 fL 6.2-12.0 [facility] CO2 (BldA) [Partial pressure ]Ordered By: Armando Miranda on 11-01-2022 CO2 (Bld) [Partial pressure] 41.6 mm[Hg] 35-45 [facility] Cerebrospinal fluid SARAH virus DNA detection by probe and target amplification methodOrdered By: Helena Ann on 11-01-2022 SARAH virus DNA ANTIONE+probe Ql (CSF) See comment [facility] Comment on above: Result: NegativeNo J CV DNA detectedThis test was developed and its performance characteristicsdetermined by [employer]. It has not been cleared or approvedby the Food and Drug Administration. The FDA hasdetermined that such clearance or approval is notnecessary.Performed at: [address] [id number] Director: Kody Garcia MD, Phone: [phone] Cerebrospinal fluid appearan ce descriptionOrdered By: Helena Ann on 11-01-2022 Appearance (CSF) CLEAR Clear [facility] Cerebrospinal fluid cell cou ntOrdered By: Helena Ann on 11-01-2022 Cell count panel (CSF) TNP [facility] Comment on above: Test not performed Cerebrospinal fluid color id entificationOrdered By: Helena Ann on 11-01-2022 Color (CSF) COLORLESS Colorless [facility] Cerebrospinal fluid glucose measurement (mass/volume)Ordered By: Helena Ann on 11-01-2022 Glucose (CSF) [Mass/Vol] 62 mg/dL 40-75 [facility] Cerebrospinal fluid white bl ood cell countOrdered By: Helena Ann on 11-01-2022 WBC (CSF) [#/Vol] 0 /mm-3 0-5 [facility] Cytology report of Body flui d Cyto stainOrdered By: Helena Ann on 11-01-2022 Cytology report Cyto stain Doc (Body fld) SEE PATHOLOGY REPORT [facility] Comment on above: Specimen submitted t o Anatomical Pathology Department for testing. Determination of erythrocyte mean corpuscular volume (MCV)Ordered By: Armando Miranda on 11-01-2022 MCV (RBC) [Entitic vol] 99.5 fL 81-99 [facility] Gram stain for investigation of transfusion reactionOrdered By: Helena Ann on 11-01-2022 Microscopic observation Gram stain Nom (Unsp spec) [facility] Hematocrit Auto (Bld) [Volum e fraction]Ordered By: Armando Miranda on 11-01-2022 Hematocrit (Bld) [Volume fraction] 38.5 % 37-47 [facility] Herpes simplex virus 1+2 DNA detection by probe and target amplification methodOrdered By: Helena Ann on 11-01-2022 HSV 1+2 DNA ANTIONE+probe Ql (Unsp spec) Negative Negative [facility] Influenza virus A and B and SARS-CoV-2 (COVID-19) Ag panel - Upper respiratory specimOrdered By: Armando Miranda on 11-01-2022 SARS-CoV-2 & FLU Antigen (Rapid) Influenzae B [facility] SARS-CoV-2 (COVID-19) RNA ANTIONE+probe Ql (Resp) [facility] Ketones Test strip Ql (U)Ord ered By: Armando Miranda on 11-01-2022 Ketones Ql (U) Negative Negative [facility] Laboratory - Chemistry and C hemistry - challengeOrdered By: Armando Miranda on 11-01-2022 ALP [Catalytic activity/Vol] 97 U/L 45-117 [facility] ALT [Catalytic activity/Vol] 30 U/L 13-56 [facility] CK [Catalytic activity/Vol] 211 U/L 26-192 [facility] CO2 [Moles/Vol] 25.0 mmol/L 21.0-32.0 [facility] Globulin (S) [Mass/Vol] 4.3 g/dL 2.2-4.2 [facility] Lipase [Catalytic activity/Vol] 21 U/L 13-75 [facility] Comment on above: Please note:LIPASE r evised reference range effective 22. New Lipase methodology. Expected to produce lower values than the previous assay method. NEW Reference Range: 13 - 75 U/L Urea nitrogen/Creatinine [Mass ratio] 11.4 mg/mg 10-20 [facility] Laboratory - Chemistry and C hemistry - challengeOrdered By: Helena Ann on 11-01-2022 Free T4 [Mass/Vol] 1.18 ng/dL 0.76-1.46 [facility] Laboratory - Drug toxicology Ordered By: Armando Miranda on 11-01-2022 Amphetamines Ql (U) Negative <1000 ng/mL [facility] Benzodiazepines Ql (U) Negative < 200 ng/mL [facility] Cannabinoids Screen Ql (U) Negative < 50 ng/mL [facility] Cocaine Ql (U) Negative < 300 ng/mL [facility] Opiates Ql (U) Negative < 300 ng/mL [facility] Laboratory - Hematology and Cell countsOrdered By: Armando Miranda on 11-01-2022 Erythrocyte distribution width (RBC) [Entitic vol] 52.0 fL 35.1-43.9 [facility] Erythrocyte distribution width (RBC) [Ratio] 14.3 % 11.6-14.6 [facility] Immature granulocytes/100 WBC (Bld) 0.300 % 0.0-0.9 [facility] Comment on above: IG% - Immature Granu locytes (promyelocytes, myelocytes and metamyelocytes) > 1% indicates that a LEFT SHIFT is Present. MCH (RBC) [Entitic mass] 31.5 pg 27.0-32.0 [facility] Nucleated RBC/100 WBC (Bld) [Ratio] 0 % 0-5 [facility] Laboratory - Specimen inform ationOrdered By: Helena Ann on 11-01-2022 Tube number Nom (CSF) [ID] 3 [facility] MCHC Auto (RBC) [Mass/Vol]Or dered By: Armando Miranda on 11-01-2022 MCHC (RBC) [Mass/Vol] 31.7 g/dL 32-36 [facility] Mononuclear cells Auto (Body fld) [#/Vol]Ordered By: Helena Ann on 11-01-2022 Mononuclear cells (Body fld) [#/Vol] 0.000 10*3/uL [facility] Mucus LM Ql (Urine sed)Order ed By: Armando Miranda on 11-01-2022 Mucus Ql (Urine sed) 0 SEEN /hpf [facility] Nitrite Test strip Ql (U)Ord ered By: Armando Miranda on 11-01-2022 Nitrite Ql (U) Negative Negative [facility] No Panel InformationOrdered By: Helena Ann on 11-01-2022 Body Fluid Mononuclear WBCs (%) 0.0 % [facility] Body Fluid Polynuclear WBCs (#) 0.001 10^3/uL [facility] Body Fluid Polynuclear WBCs (%) 100.0 % [facility] CSF RBC 49 /mm-3 None seen [facility] CSF Total Protein 43.0 mg/dL 15.0-45.0 [facility] Herpes Simplex Virus II DNA (PCR) Negative Negative [facility] No Panel InformationOrdered By: Armando Miranda on 11-01-2022 Blood Gas Sample Site L Radial [facility] Blood Gas Specimen Type ART [facility] Blood Gas Total CO2 24 mmol/L [facility] Oxygen Delivery Device Room Air [facility] MDMA (Ecstasy) Screen Positive < 500 ng/mL [facility] Urine Barbiturates Screen Negative < 200 ng/mL [facility] Urine Drug Screen Comment [facility] Comment on above: CONFIRMATORY TESTING FOR ALL [...] Urine Methadone Screen Negative < 300 ng/mL [facility] Estimated Creatinine Clearance Calc 45.70 ml/min [facility] Estimated GFR (MDRD) Amer 81 mL/min >60 [facility] Comment on above: GFR Calc Estimated GFR (MDRD) Non-Af Amer 67 mL/min >60 [facility] Comment on above: Non- GFR Calc Ethyl Alcohol Level < 3.0 mg/dL [facility] Comment on above: The serum:whole bloo d ethanol ratio is approximately 1.14and varies slightly with hematocrit. Medical Alcohol reference interval and critical value innon-tolerant individuals; 50 - 100 Impairment 100 Intoxication 100 - 250 Severe Poisoning 250 - 400 Deep/possible fatal coma Thyroid Stimulating Hormone (TSH) 0.09 uIU/mL 0.358-3.74 [facility] Troponin I High Sensitivity 4 pg/mL 3.0-54.0 [facility] Comment on above: Please Note: New Nu t Units and Gender Specific Reference Ranges. For more information see Policy Stat Procedure [place] High Sensitivity Troponin (TNIH) and attachments. Oxygen (BldA) [Partial press ure]Ordered By: Armando Miranda on 11-01-2022 Oxygen (Bld) [Partial pressure] 86 mmHG 75-100 [facility] Platelets bldOrdered By: Yudith Miranda on 11-01-2022 Platelets (Bld) [#/Vol] 399 10*3/uL 150-450 [facility] Protein Test strip Ql (U)Ord ered By: Armando Miranda on 11-01-2022 Protein Ql (U) Negative Negative [facility] Review by pathologistOrdered By: Helena Ann on 11-01-2022 Pathologist review [place] (Unsp spec) [Interp] Reviewed [facility] Comment on above: Previous reported re sult: May follow Edited by: RGOOD on 11/02/22:1301Negative for malignant cells.Erik Manjarrez D.O. 11/02/22 AMENDED REPORT 11/02/22 1301 PATH REV previously reported as: May follow Serum or plasma albumin rosangela urement (mass/volume)Ordered By: Armando Miranda on 11-01-2022 Albumin [Mass/Vol] 2.6 g/dL 3.2-5.0 [facility] Serum or plasma albumin/glob ulin mass ratioOrdered By: Armando Miranda on 11-01-2022 Albumin/Globulin [Mass ratio] 0.6 {ratio} 0.9-2.4 [facility] Serum or plasma calcium rosangela urement (mass/volume)Ordered By: Armando Miranda on 11-01-2022 Calcium [Mass/Vol] 9.0 mg/dL 8.5-10.1 [facility] Serum or plasma creatinine m easurement (mass/volume)Ordered By: Armando Miranda on 11-01-2022 Creatinine [Mass/Vol] 0.88 mg/dL 0.55-1.02 [facility] Comment on above: The validity of the calculated GFR & GFRAA in patients over 70 years has not been determined. Clinical correlation is essential. Serum or plasma urea nitroge n measurement (mass/volume)Ordered By: Armando Miranda on 11-01-2022 Urea nitrogen [Mass/Vol] 10 mg/dL 7-18 [facility] Squamous epithelial cells de tection in urine sediment by light microscopyOrdered By: Armando Miranda on 11-01-2022 Epithelial cells.squamous LM Ql (Urine sed) 0 SEEN /hpf 5-10 [facility] Thin prep Papanicolaou smear with manual screeningOrdered By: Armando Miranda on 11-01-2022 Thin prep Papanicolaou smear with manual screening 19 U/L 15-37 [facility] Thin prep Papanicolaou smear with manual screening 5 5-15 [facility] Urine blood detectionOrdered By: Armando Miranda on 11-01-2022 RBC Ql (U) Negative Negative [facility] RBC Ql (U) 0 SEEN /hpf 0-5 [facility] Urine clarityOrdered By: Yudith Miranda on 11-01-2022 Clarity (U) Sl. Cloudy Clear [facility] Urine color determinationOrd ered By: Armando Miranda on 11-01-2022 Color (U) Yellow Yellow [facility] Urine glucose detectionOrder ed By: Armando Miranda on 11-01-2022 Glucose Ql (U) Normal mg/dl Normal [facility] Urine leukocyte esterase det ection by dipstickOrdered By: Armando Miranda on 11-01-2022 Leukocyte esterase Test strip Ql (U) Negative Negative [facility] Urine pHOrdered By: Armando ghotra on 11-01-2022 pH (U) 7.0 [pH] 5.0 - 8.0 [facility] Urine phencyclidine (PCP) de tectionOrdered By: Armando Miranda on 11-01-2022 Phencyclidine Ql (U) Negative < 25 ng/mL [facility] Urine sediment bacteria coun t by microscopy (number/high power field)Ordered By: Armando Miranda on 11-01-2022 Bacteria LM.HPF (Urine sed) [#/Area] 0 /[HPF] None Seen [facility] Urine specific gravity measu rementOrdered By: Armando Miranda on 11-01-2022 Specific gravity (U) [Rel density] 1.010 1.002-1.03 0 [facility] Urobilinogen Auto test strip Ql (U)Ordered By: Armando Miranda on 11-01-2022 Urobilinogen Ql (U) Normal mg/dl Normal [facility] pH measurementOrdered By: Patricia Miranda on 11-01-2022 pH (Unsp spec) 7.35 [pH] 7.35-7.45 [facility] Absolute lymphocyte countOrd ered By: Zia Posey on 10-14-2022 Lymphocytes Auto (Unsp spec) [#/Vol] 1.59 10*3/uL 0.83-4.51 [facility] Basophil percentageOrdered B y: Zia Posey on 10-14-2022 Basophils/100 WBC (Bld) 0.5 % 0-1 [facility] Chloride [Moles/Vol] 114 mmol/L 98-107 [facility] Eosinophils/100 WBC (Bld) 0.9 % 0-5 [facility] Glucose [Mass/Vol] 100 mg/dL 74-106 [facility] Comment on above: Fasting Glucose resu lt from 100 to 125 mg/dL suggests IMPAIRED HOMEOSTASIS per A.D.A. criteria. Neutrophils (Bld) [#/Vol] 3.6 10*3/uL 2.0-7.7 [facility] Neutrophils/100 WBC (Bld) 62.2 % 47-70 [facility] Potassium [Moles/Vol] 3.6 mmol/L 3.5-5.1 [facility] Sodium [Moles/Vol] 143 mmol/L 136-145 [facility] WBC (Bld) [#/Vol] 5.7 10*3/uL 4.4-11.0 [facility] Blood erythrocytes count (nu mber/volume)Ordered By: Zia Posey on 10-14-2022 RBC (Bld) [#/Vol] 3.15 10*6/uL 4.2-5.4 [facility] Blood hemoglobin measurement (mass/volume)Ordered By: Zia Posey on 10-14-2022 Hemoglobin (Bld) [Mass/Vol] 10.1 g/dL 12.0-15.0 [facility] Blood lymphocytes/100 leukoc ytesOrdered By: Zia Posey on 10-14-2022 Lymphocytes/100 WBC (Bld) 27.8 % 19-41 [facility] Blood monocytes/100 leukocyt esOrdered By: Zia Posey on 10-14-2022 Monocytes/100 WBC (Bld) 8.4 % 0-10 [facility] Blood platelet mean volumeOr dered By: Zia Posey on 10-14-2022 Platelet mean volume (Bld) [Entitic vol] 10.0 fL 6.2-12.0 [facility] Determination of erythrocyte mean corpuscular volume (MCV)Ordered By: Zia Posey on 10-14-2022 MCV (RBC) [Entitic vol] 97.1 fL 81-99 [facility] Hematocrit Auto (Bld) [Volum e fraction]Ordered By: Zia Posey on 10-14-2022 Hematocrit (Bld) [Volume fraction] 30.6 % 37-47 [facility] Laboratory - Chemistry and C hemistry - challengeOrdered By: Zia Posey on 10-14-2022 Cobalamin (Vitamin B12) [Mass/Vol] 312 pg/mL 211-911 [facility] Free T4 [Mass/Vol] 1.27 ng/dL 0.76-1.46 [facility] CO2 [Moles/Vol] 26.0 mmol/L 21.0-32.0 [facility] Urea nitrogen/Creatinine [Mass ratio] 8.1 mg/mg 10-20 [facility] Laboratory - Hematology and Cell countsOrdered By: Zia Posey on 10-14-2022 Erythrocyte distribution width (RBC) [Entitic vol] 49.1 fL 35.1-43.9 [facility] Erythrocyte distribution width (RBC) [Ratio] 13.7 % 11.6-14.6 [facility] Immature granulocytes/100 WBC (Bld) 0.200 % 0.0-0.9 [facility] Comment on above: IG% - Immature Granu locytes (promyelocytes, myelocytes and metamyelocytes) > 1% indicates that a LEFT SHIFT is Present. MCH (RBC) [Entitic mass] 32.1 pg 27.0-32.0 [facility] Nucleated RBC/100 WBC (Bld) [Ratio] 0 % 0-5 [facility] MCHC Auto (RBC) [Mass/Vol]Or dered By: Zia Posey on 10-14-2022 MCHC (RBC) [Mass/Vol] 33.0 g/dL 32-36 [facility] No Panel InformationOrdered By: Zia Posey on 10-14-2022 Vitamin D 25-Hydroxy 38.7 ng/mL [facility] Comment on above: Vitamin D 25(OH) Sta tus Range Deficiency <20 ng/mL (50nmol/L) Insufficiency 20 - 30 ng/mL (50 - 75 nmol/L) Sufficiency 30 - 100 ng/mL (75 - 250 nmol/L) Toxicity >100 ng/mL (>250 nmol/L) Estimated Creatinine Clearance Calc 39.90 ml/min [facility] Estimated GFR (MDRD) Amer 99 mL/min >60 [facility] Comment on above: GFR Calc Estimated GFR (MDRD) Non-Af Amer 82 mL/min >60 [facility] Comment on above: Non- GFR Calc Thyroid Stimulating Hormone (TSH) 0.04 uIU/mL 0.358-3.74 [facility] Platelets bldOrdered By: Elinor oPsey on 10-14-2022 Platelets (Bld) [#/Vol] 247 10*3/uL 150-450 [facility] Serum or plasma calcium rosangela urement (mass/volume)Ordered By: Zia Posey on 10-14-2022 Calcium [Mass/Vol] 8.4 mg/dL 8.5-10.1 [facility] Serum or plasma creatinine m easurement (mass/volume)Ordered By: Zia Posey on 10-14-2022 Creatinine [Mass/Vol] 0.74 mg/dL 0.55-1.02 [facility] Comment on above: The validity of the calculated GFR & GFRAA in patients over 70 years has not been determined. Clinical correlation is essential. Serum or plasma folate measu rement (mass/volume)Ordered By: Zia Posey on 10-14-2022 Folate [Mass/Vol] 6.90 ng/mL 3.1-55.4 [facility] Serum or plasma urea nitroge n measurement (mass/volume)Ordered By: Zia Posey on 10-14-2022 Urea nitrogen [Mass/Vol] 6 mg/dL 7-18 [facility] Thin prep Papanicolaou smear with manual screeningOrdered By: Ziasonia Posey on 10-14-2022 Thin prep Papanicolaou smear with manual screening 3 5-15 [facility] Absolute lymphocyte countOrd ered By: Sheyla Slade on 10-13-2022 Lymphocytes Auto (Unsp spec) [#/Vol] 1.13 10*3/uL 0.83-4.51 [facility] Basophil percentageOrdered B y: Sheyla Slade on 10-13-2022 Lactate [Moles/Vol] 0.8 mmol/L 0.4-2.0 [facility] Basophils/100 WBC (Bld) 0.2 % 0-1 [facility] Bilirubin [Mass/Vol] 0.30 mg/dL 0.20-1.00 [facility] Comment on above: For patients on eltr ombopag therapy, use of Dimension [place] TBIL is not recommended. Chloride [Moles/Vol] 112 mmol/L 98-107 [facility] Eosinophils/100 WBC (Bld) 0.0 % 0-5 [facility] Glucose [Mass/Vol] 91 mg/dL 74-106 [facility] Neutrophils (Bld) [#/Vol] 7.4 10*3/uL 2.0-7.7 [facility] Neutrophils/100 WBC (Bld) 78.3 % 47-70 [facility] Potassium [Moles/Vol] 3.5 mmol/L 3.5-5.1 [facility] Protein [Mass/Vol] 5.7 g/dL 6.4-8.2 [facility] Sodium [Moles/Vol] 143 mmol/L 136-145 [facility] WBC (Bld) [#/Vol] 9.4 10*3/uL 4.4-11.0 [facility] Basophil percentage 0 SEEN /hpf 0-5 [facility] Basophil percentage < 10.0 umol/L 11-32 [facility] Lactate [Moles/Vol] 2.5 mmol/L 0.4-2.0 [facility] Comment on above: Critical Result(s) C alled at: 14:29:10 10/13/2022 by: Stephanie Loera. Results read back by same. Basophil percentageOrdered B y: Zia Kalpesh on 10-13-2022 Basophil percentage 3.1 mg/dL 2.5-4.9 [facility] Bilirubin Test strip Ql (U)O rdered By: Sheyla Slade on 10-13-2022 Bilirubin Ql (U) Negative Negative [facility] Blood erythrocytes count (nu mber/volume)Ordered By: Sheyla Slade on 10-13-2022 RBC (Bld) [#/Vol] 3.35 10*6/uL 4.2-5.4 [facility] Blood hemoglobin measurement (mass/volume)Ordered By: Sheyla Slade on 10-13-2022 Hemoglobin (Bld) [Mass/Vol] 10.3 g/dL 12.0-15.0 [facility] Blood lymphocytes/100 leukoc ytesOrdered By: Sheyla Slade on 10-13-2022 Lymphocytes/100 WBC (Bld) 12.0 % 19-41 [facility] Blood monocytes/100 leukocyt esOrdered By: Sheyla Slade on 10-13-2022 Monocytes/100 WBC (Bld) 9.2 % 0-10 [facility] Blood platelet mean volumeOr dered By: Sheyla Slade on 10-13-2022 Platelet mean volume (Bld) [Entitic vol] 9.8 fL 6.2-12.0 [facility] Determination of erythrocyte mean corpuscular volume (MCV)Ordered By: Sheyla Slade on 10-13-2022 MCV (RBC) [Entitic vol] 97.0 fL 81-99 [facility] Hematocrit Auto (Bld) [Volum e fraction]Ordered By: Sheyla Slade on 10-13-2022 Hematocrit (Bld) [Volume fraction] 32.5 % 37-47 [facility] Ketones Test strip Ql (U)Ord ered By: Sheyla Slade on 10-13-2022 Ketones Ql (U) Negative Negative [facility] Laboratory - Chemistry and C hemistry - challengeOrdered By: Zia Posey on 10-13-2022 Magnesium [Mass/Vol] 2.2 mg/dL 1.6-2.6 [facility] Laboratory - Chemistry and C hemistry - challengeOrdered By: Sheyla Slade on 10-13-2022 ALP [Catalytic activity/Vol] 86 U/L 45-117 [facility] ALT [Catalytic activity/Vol] 14 U/L 13-56 [facility] CO2 [Moles/Vol] 25.0 mmol/L 21.0-32.0 [facility] Globulin (S) [Mass/Vol] 3.3 g/dL 2.2-4.2 [facility] Urea nitrogen/Creatinine [Mass ratio] 10.3 mg/mg 10-20 [facility] Free T4 [Mass/Vol] 1.26 ng/dL 0.76-1.46 [facility] Laboratory - Hematology and Cell countsOrdered By: Sheyla Slade on 10-13-2022 Erythrocyte distribution width (RBC) [Entitic vol] 48.4 fL 35.1-43.9 [facility] Erythrocyte distribution width (RBC) [Ratio] 13.5 % 11.6-14.6 [facility] Immature granulocytes/100 WBC (Bld) 0.300 % 0.0-0.9 [facility] Comment on above: IG% - Immature Granu locytes (promyelocytes, myelocytes and metamyelocytes) > 1% indicates that a LEFT SHIFT is Present. MCH (RBC) [Entitic mass] 30.7 pg 27.0-32.0 [facility] Nucleated RBC/100 WBC (Bld) [Ratio] 0 % 0-5 [facility] MCHC Auto (RBC) [Mass/Vol]Or dered By: Sheyla Slade on 10-13-2022 MCHC (RBC) [Mass/Vol] 31.7 g/dL 32-36 [facility] Mucus LM Ql (Urine sed)Order ed By: Sheyla Slade on 10-13-2022 Mucus Ql (Urine sed) 0 SEEN /hpf [facility] Nitrite Test strip Ql (U)Ord ered By: Sheyla Slade on 10-13-2022 Nitrite Ql (U) Negative Negative [facility] No Panel InformationOrdered By: Sheyla Slade on 10-13-2022 Estimated Creatinine Clearance Calc 43.95 ml/min [facility] Estimated GFR (MDRD) Amer 82 mL/min >60 [facility] Comment on above: GFR Calc Estimated GFR (MDRD) Non-Af Amer 68 mL/min >60 [facility] Comment on above: Non- GFR Calc Free Triiodothyronine (T3) pg/dL 2.2 pg/mL 2.18-3.98 [facility] Platelets bldOrdered By: Elodia Slade on 10-13-2022 Platelets (Bld) [#/Vol] 288 10*3/uL 150-450 [facility] Protein Test strip Ql (U)Ord ered By: Sheyla Slade on 10-13-2022 Protein Ql (U) Negative Negative [facility] Serum or plasma albumin rosangela urement (mass/volume)Ordered By: Sheyla Slade on 10-13-2022 Albumin [Mass/Vol] 2.4 g/dL 3.2-5.0 [facility] Serum or plasma albumin/glob ulin mass ratioOrdered By: Sheyla Slade on 10-13-2022 Albumin/Globulin [Mass ratio] 0.7 {ratio} 0.9-2.4 [facility] Serum or plasma calcium rosangela urement (mass/volume)Ordered By: Sheyla Slade on 10-13-2022 Calcium [Mass/Vol] 8.4 mg/dL 8.5-10.1 [facility] Serum or plasma creatinine m easurement (mass/volume)Ordered By: Sheyla Slade on 10-13-2022 Creatinine [Mass/Vol] 0.87 mg/dL 0.55-1.02 [facility] Comment on above: The validity of the calculated GFR & GFRAA in patients over 70 years has not been determined. Clinical correlation is essential. Serum or plasma urea nitroge n measurement (mass/volume)Ordered By: Sheyla Slade on 10-13-2022 Urea nitrogen [Mass/Vol] 9 mg/dL 7-18 [facility] Squamous epithelial cells de tection in urine sediment by light microscopyOrdered By: Sheyla Slade on 10-13-2022 Epithelial cells.squamous LM Ql (Urine sed) 0-5 SEEN /hpf 5-10 [facility] Thin prep Papanicolaou smear with manual screeningOrdered By: Sheyla Slade on 10-13-2022 Thin prep Papanicolaou smear with manual screening 18 U/L 15-37 [facility] Thin prep Papanicolaou smear with manual screening 6 5-15 [facility] Urine blood detectionOrdered By: Sheyla Slade on 10-13-2022 RBC Ql (U) Negative Negative [facility] RBC Ql (U) 0 SEEN /hpf 0-5 [facility] Urine clarityOrdered By: Elodia Slade on 10-13-2022 Clarity (U) Sl. Cloudy Clear [facility] Urine color determinationOrd ered By: Sheyla Slade on 10-13-2022 Color (U) Yellow Yellow [facility] Urine glucose detectionOrder ed By: Sheyla Slade on 10-13-2022 Glucose Ql (U) 50 mg/dl Normal [facility] Urine leukocyte esterase det ection by dipstickOrdered By: Sheyla Slade on 10-13-2022 Leukocyte esterase Test strip Ql (U) Negative Negative [facility] Urine pHOrdered By: Sheyla fink on 10-13-2022 pH (U) 6.0 [pH] 5.0 - 8.0 [facility] Urine sediment bacteria coun t by microscopy (number/high power field)Ordered By: Sheyla Slade on 10-13-2022 Bacteria LM.HPF (Urine sed) [#/Area] 0 /[HPF] None Seen [facility] Urine specific gravity measu rementOrdered By: Sheyla Slade on 10-13-2022 Specific gravity (U) [Rel density] 1.015 1.002-1.03 0 [facility] Urobilinogen Auto test strip Ql (U)Ordered By: Sheyla Slade on 10-13-2022 Urobilinogen Ql (U) Normal mg/dl Normal [facility] Absolute lymphocyte countOrd ered By: Harish Luis on 10-12-2022 Lymphocytes Auto (Unsp spec) [#/Vol] 1.77 10*3/uL 0.83-4.51 [facility] Basophil percentageOrdered B y: Harish Luis on 10-12-2022 Basophils/100 WBC (Bld) 0.8 % 0-1 [facility] Bilirubin [Mass/Vol] 0.50 mg/dL 0.20-1.00 [facility] Comment on above: For patients on eltr ombopag therapy, use of Dimension [place] TBIL is not recommended. Chloride [Moles/Vol] 108 mmol/L 98-107 [facility] Eosinophils/100 WBC (Bld) 1.5 % 0-5 [facility] Glucose [Mass/Vol] 116 mg/dL 74-106 [facility] Comment on above: Fasting Glucose resu lt from 100 to 125 mg/dL suggests IMPAIRED HOMEOSTASIS per A.D.A. criteria. Neutrophils (Bld) [#/Vol] 4.6 10*3/uL 2.0-7.7 [facility] Neutrophils/100 WBC (Bld) 63.9 % 47-70 [facility] Potassium [Moles/Vol] 3.6 mmol/L 3.5-5.1 [facility] Protein [Mass/Vol] 6.9 g/dL 6.4-8.2 [facility] Sodium [Moles/Vol] 142 mmol/L 136-145 [facility] WBC (Bld) [#/Vol] 7.2 10*3/uL 4.4-11.0 [facility] Blood erythrocytes count (nu mber/volume)Ordered By: Harish Luis on 10-12-2022 RBC (Bld) [#/Vol] 4.18 10*6/uL 4.2-5.4 [facility] Blood hemoglobin measurement (mass/volume)Ordered By: Harish Luis on 10-12-2022 Hemoglobin (Bld) [Mass/Vol] 13.2 g/dL 12.0-15.0 [facility] Blood lymphocytes/100 leukoc ytesOrdered By: Harish Luis on 10-12-2022 Lymphocytes/100 WBC (Bld) 24.4 % 19-41 [facility] Blood monocytes/100 leukocyt esOrdered By: [facility] on 10-12-2022 Monocytes/100 WBC (Bld) 9.0 % 0-10 [facility] Blood platelet mean volumeOr dered By: [facility] on 10-12-2022 Platelet mean volume (Bld) [Entitic vol] 10.2 fL 6.2-12.0 [facility] Determination of erythrocyte mean corpuscular volume (MCV)Ordered By: [facility] on 10-12-2022 MCV (RBC) [Entitic vol] 95.9 fL 81-99 [facility] Hematocrit Auto (Bld) [Volum e fraction]Ordered By: [facility] 10-12-2022 Hematocrit (Bld) [Volume fraction] 40.1 % 37-47 [facility] Laboratory - Chemistry and C hemistry - challengeOrdered By: [facility] 10-12-2022 ALP [Catalytic activity/Vol] 115 U/L 45-117 [facility] ALT [Catalytic activity/Vol] 17 U/L 13-56 [facility] CO2 [Moles/Vol] 28.0 mmol/L 21.0-32.0 [facility] Globulin (S) [Mass/Vol] 3.9 g/dL 2.2-4.2 [facility] Urea nitrogen/Creatinine [Mass ratio] 6.7 mg/mg 10-20 [facility] Laboratory - Hematology and Cell countsOrdered By: [facility] 10-12-2022 Erythrocyte distribution width (RBC) [Entitic vol] 48.3 fL 35.1-43.9 [facility] Erythrocyte distribution width (RBC) [Ratio] 13.5 % 11.6-14.6 [facility] Immature granulocytes/100 WBC (Bld) 0.400 % 0.0-0.9 [facility] Comment on above: IG% - Immature Granu locytes (promyelocytes, myelocytes and metamyelocytes) > 1% indicates that a LEFT SHIFT is Present. MCH (RBC) [Entitic mass] 31.6 pg 27.0-32.0 [facility] Nucleated RBC/100 WBC (Bld) [Ratio] 0 % 0-5 [facility] Auto (RBC) [Mass/Vol]Or dered By: Harish Luis on 10-12-2022 MCHC (RBC) [Mass/Vol] 32.9 g/dL 32-36 [facility] No Panel InformationOrdered By: Harish Luis on 10-12-2022 Estimated GFR (MDRD) Amer 66 mL/min >60 [facility] Comment on above: GFR Calc Estimated GFR (MDRD) Non-Af Amer 55 mL/min >60 [facility] Comment on above: Non- GFR Calc Thyroid Stimulating Hormone (TSH) 0.05 uIU/mL 0.358-3.74 [facility] Platelets bldOrdered By: Harish Luis on 10-12-2022 Platelets (Bld) [#/Vol] 341 10*3/uL 150-450 [facility] Serum or plasma albumin rosangela urement (mass/volume)Ordered By: Harish Luis on 10-12-2022 Albumin [Mass/Vol] 3.0 g/dL 3.2-5.0 [facility] Serum or plasma albumin/glob ulin mass ratioOrdered By: Harish Luis 10-12-2022 Albumin/Globulin [Mass ratio] 0.8 {ratio} 0.9-2.4 [facility] Serum or plasma calcium rosangela urement (mass/volume)Ordered By: Harish Luis 10-12-2022 Calcium [Mass/Vol] 9.1 mg/dL 8.5-10.1 [facility] Serum or plasma creatinine m easurement (mass/volume)Ordered By: Harish Luis 10-12-2022 Creatinine [Mass/Vol] 1.05 mg/dL 0.55-1.02 [facility] Comment on above: The validity of the calculated GFR & GFRAA in patients over 70 years has not been determined. Clinical correlation is essential. Serum or plasma urea nitroge n measurement (mass/volume)Ordered By: Harish Luis on 10-12-2022 Urea nitrogen [Mass/Vol] 7 mg/dL 7-18 [facility] Thin prep Papanicolaou smear with manual screeningOrdered By: Harish Luis 10-12-2022 Thin prep Papanicolaou smear with manual screening 22 U/L 15-37 [facility] Thin prep Papanicolaou smear with manual screening 6 5-15 [facility] Basophil percentageOrdered B y: Sondra Rooney on 08-03-2022 Cholesterol [Mass/Vol] 176 mg/dL <200 [facility] Comment on above: <200 mg/dL Desirable 200-240 mg/dL Borderline >240 mg/dL High Risk Triglyceride [Mass/Vol] 79 mg/dL <199 [facility] Comment on above: The drugs N-Acetylcy steine and Metamizole may falsely depress this assay.Serum Triglycerides Reference Interval Normal <150 mg/dL Borderline high 150 - 199 mg/dL High 200 - 499 mg/dL Very High > or = 500 mg/dL Serum or plasma cholesterol in HDL measurement (mass/volume)Ordered By: Sondra Rooney on 08-03-2022 Cholesterol in HDL [Mass/Vol] 52 mg/dL >40 [facility] Comment on above: The drugs N-Acetylcy steine and Metamizole may falsely depress this assay. Reference Range HDL <40 mg/dL Low HDL Cholesterol HDL >or= 60 mg/dL High HDL Cholesterol Serum or plasma cholesterol in VLDL measurement (mass/volume)Ordered By: Sondra Rooney on 08-03-2022 Cholesterol in VLDL [Mass/Vol] 16 mg/dL 5-40 [facility] Serum or plasma low density lipoprotein (LDL) cholesterol measurement (mass/volume)Ordered By: Sondra Rooney on 08-03-2022 Cholesterol in LDL [Mass/Vol] 108 mg/dL 0-130 [facility] Glucose Glucometer (BldC) [M ass/Vol]Ordered By: Doni Hanson on 08-02-2022 Glucose [Mass/Vol] 109 mg/dL 74-106 [facility] Comment on above: MANAGEMENT OF PATIEN T CARE PER NURSING PROTOCOL Absolute lymphocyte countOrd ered By: Rafita Siddiqui on 07-30-2022 Lymphocytes Auto (Unsp spec) [#/Vol] 1.32 10*3/uL 0.83-4.51 [facility] Basophil percentageOrdered B y: Rafita Siddiqui on 07-30-2022 Basophils/100 WBC (Bld) 0.4 % 0-1 [facility] Chloride [Moles/Vol] 108 mmol/L 98-107 [facility] Eosinophils/100 WBC (Bld) 2.1 % 0-5 [facility] Glucose [Mass/Vol] 100 mg/dL 74-106 [facility] Comment on above: Fasting Glucose resu lt from 100 to 125 mg/dL suggests IMPAIRED HOMEOSTASIS per A.D.A. criteria. Neutrophils (Bld) [#/Vol] 5.0 10*3/uL 2.0-7.7 [facility] Neutrophils/100 WBC (Bld) 70.5 % 47-70 [facility] Potassium [Moles/Vol] 3.9 mmol/L 3.5-5.1 [facility] Sodium [Moles/Vol] 137 mmol/L 136-145 [facility] WBC (Bld) [#/Vol] 7.1 10*3/uL 4.4-11.0 [facility] Blood erythrocytes count (nu mber/volume)Ordered By: Rafita Siddiqui on 07-30-2022 RBC (Bld) [#/Vol] 3.34 10*6/uL 4.2-5.4 [facility] Blood hemoglobin measurement (mass/volume)Ordered By: Rafita Siddiqui on 07-30-2022 Hemoglobin (Bld) [Mass/Vol] 10.4 g/dL 12.0-15.0 [facility] Blood lymphocytes/100 leukoc ytesOrdered By: Rafita Siddiqui on 07-30-2022 Lymphocytes/100 WBC (Bld) 18.5 % 19-41 [facility] Blood monocytes/100 leukocyt esOrdered By: Rafita Siddiqui on 07-30-2022 Monocytes/100 WBC (Bld) 8.1 % 0-10 [facility] Blood platelet mean volumeOr dered By: Rafita Sdidiqui on 07-30-2022 Platelet mean volume (Bld) [Entitic vol] 10.3 fL 6.2-12.0 [facility] Determination of erythrocyte mean corpuscular volume (MCV)Ordered By: Rafita Siddiqui on 07-30-2022 MCV (RBC) [Entitic vol] 97.9 fL 81-99 [facility] Hematocrit Auto (Bld) [Volum e fraction]Ordered By: Rafita Siddiqui on 07-30-2022 Hematocrit (Bld) [Volume fraction] 32.7 % 37-47 [facility] Laboratory - Chemistry and C hemistry - challengeOrdered By: Rafita Siddiqui on 07-30-2022 CO2 [Moles/Vol] 23.0 mmol/L 21.0-32.0 [facility] Urea nitrogen/Creatinine [Mass ratio] 13.9 mg/mg 10-20 [facility] Laboratory - Hematology and Cell countsOrdered By: Rafita Siddiqui on 07-30-2022 Erythrocyte distribution width (RBC) [Entitic vol] 52.1 fL 35.1-43.9 [facility] Erythrocyte distribution width (RBC) [Ratio] 14.5 % 11.6-14.6 [facility] Immature granulocytes/100 WBC (Bld) 0.400 % 0.0-0.9 [facility] Comment on above: IG% - Immature Granu locytes (promyelocytes, myelocytes and metamyelocytes) > 1% indicates that a LEFT SHIFT is Present. MCH (RBC) [Entitic mass] 31.1 pg 27.0-32.0 [facility] Nucleated RBC/100 WBC (Bld) [Ratio] 0 % 0-5 [facility] MCHC Auto (RBC) [Mass/Vol]Or dered By: Rafita Siddiqui on 07-30-2022 MCHC (RBC) [Mass/Vol] 31.8 g/dL 32-36 [facility] No Panel InformationOrdered By: Rafita Siddiqui on 07-30-2022 Streptococcus pneumoniae Antigen (M [facility] Estimated Creatinine Clearance Calc 41.65 ml/min [facility] Estimated GFR (MDRD) Amer 69 mL/min >60 [facility] Comment on above: GFR Calc Estimated GFR (MDRD) Non-Af Amer 57 mL/min >60 [facility] Comment on above: Non- GFR Calc Platelets bldOrdered By: Pina Siddiqui on 07-30-2022 Platelets (Bld) [#/Vol] 286 10*3/uL 150-450 [facility] Serum or plasma calcium rosangela urement (mass/volume)Ordered By: Rafita Siddiqui on 07-30-2022 Calcium [Mass/Vol] 8.4 mg/dL 8.5-10.1 [facility] Serum or plasma creatinine m easurement (mass/volume)Ordered By: Rafita Siddiqui on 07-30-2022 Creatinine [Mass/Vol] 1.01 mg/dL 0.55-1.02 [facility] Comment on above: The validity of the calculated GFR & GFRAA in patients over 70 years has not been determined. Clinical correlation is essential. Serum or plasma urea nitroge n measurement (mass/volume)Ordered By: Rafita Siddiqui on 07-30-2022 Urea nitrogen [Mass/Vol] 14 mg/dL 7-18 [facility] Thin prep Papanicolaou smear with manual screeningOrdered By: Rafita Siddiqui on 07-30-2022 Thin prep Papanicolaou smear with manual screening 6 -15 [facility] Absolute lymphocyte countOrd ered By: Dr. Rosales on 07-29-2022 Lymphocytes Auto (Unsp spec) [#/Vol] 0.73 10*3/uL 0.83-4.51 [facility] Basophil percentageOrdered B y: Dr. Rosales on 07-29-2022 Lactate [Moles/Vol] 1.7 mmol/L 0.4-2.0 [facility] Basophils/100 WBC (Bld) 0.7 % 0-1 [facility] Chloride [Moles/Vol] 110 mmol/L 98-107 [facility] [facility] Eosinophils/100 WBC (Bld) 2.2 % 0-5 [facility] Glucose [Mass/Vol] 123 mg/dL 74-106 [facility] Comment on above: Fasting Glucose resu lt from 100 to 125 mg/dL suggests IMPAIRED HOMEOSTASIS per A.D.A. criteria. Neutrophils (Bld) [#/Vol] 6.7 10*3/uL 2.0-7.7 [facility] Neutrophils/100 WBC (Bld) 81.7 % 47-70 [facility] Potassium [Moles/Vol] 3.9 mmol/L 3.5-5.1 [facility] Sodium [Moles/Vol] 142 mmol/L 136-145 [facility] WBC (Bld) [#/Vol] 8.2 10*3/uL 4.4-11.0 [facility] Blood erythrocytes count (nu mber/volume)Ordered By: Dr. Rosales on 07-29-2022 RBC (Bld) [#/Vol] 3.91 10*6/uL 4.2-5.4 [facility] Blood hemoglobin measurement (mass/volume)Ordered By: Dr. Rosales on 07-29-2022 Hemoglobin (Bld) [Mass/Vol] 12.0 g/dL 12.0-15.0 [facility] Blood lymphocytes/100 leukoc ytesOrdered By: Dr. Rosales on 07-29-2022 Lymphocytes/100 WBC (Bld) 8.9 % 19-41 [facility] Blood monocytes/100 leukocyt esOrdered By: Dr. Rosales on 07-29-2022 Monocytes/100 WBC (Bld) 6.3 % 0-10 [facility] Blood platelet mean volumeOr dered By: Dr. Rosales on 07-29-2022 Platelet mean volume (Bld) [Entitic vol] 10.5 fL 6.2-12.0 [facility] Determination of erythrocyte mean corpuscular volume (MCV)Ordered By: Dr. Rosales on 07-29-2022 MCV (RBC) [Entitic vol] 99.0 fL 81-99 [facility] Hematocrit Auto (Bld) [Volum e fraction]Ordered By: Dr. Rosales on 07-29-2022 Hematocrit (Bld) [Volume fraction] 38.7 % 37-47 [facility] Influenza virus A and B and SARS-CoV-2 (COVID-19) Ag panel - Upper respiratory specimOrdered By: Dimitry Rosales on 07-29-2022 SARS-CoV-2 & FLU Antigen (Rapid) Influenzae B [facility] Influenza virus A and B and SARS-CoV-2 (COVID-19) Ag panel - Upper respiratory specimOrdered By: Dr. Rosales on 07-29-2022 SARS-CoV-2 & FLU Antigen (Rapid) Influenzae B [facility] Laboratory - Chemistry and C hemistry - challengeOrdered By: Dr. Rosales on 07-29-2022 CO2 [Moles/Vol] 27.0 mmol/L 21.0-32.0 [facility] Natriuretic peptide B (Bld) [Mass/Vol] 36.5 pg/mL 0-100 [facility] Urea nitrogen/Creatinine [Mass ratio] 13.0 mg/mg 10-20 [facility] Laboratory - Hematology and Cell countsOrdered By: Dr. Rosales on 07-29-2022 Erythrocyte distribution width (RBC) [Entitic vol] 52.6 fL 35.1-43.9 [facility] Erythrocyte distribution width (RBC) [Ratio] 14.6 % 11.6-14.6 [facility] Immature granulocytes/100 WBC (Bld) 0.200 % 0.0-0.9 [facility] Comment on above: IG% - Immature Granu locytes (promyelocytes, myelocytes and metamyelocytes) > 1% indicates that a LEFT SHIFT is Present. MCH (RBC) [Entitic mass] 30.7 pg 27.0-32.0 [facility] Nucleated RBC/100 WBC (Bld) [Ratio] 0 % 0-5 [facility] Laboratory - Microbiology an d Antimicrobial susceptibilityOrdered By: Dimitry Rosales on 07-29-2022 Bacteria identified Cx Nom (Bld) No growth in 5 days. [facility] MCHC Auto (RBC) [Mass/Vol]Or dered By: Dr. Rosales on 07-29-2022 MCHC (RBC) [Mass/Vol] 31.0 g/dL 32-36 [facility] No Panel InformationOrdered By: Dr. Rosales on 07-29-2022 D-Dimer Quantitative (PE/DVT) 0.62 FEU/ug/m 0.27-0.49 [facility] Comment on above: D-Dimer ELEVATED (>0 .49): Additional studies and clinicalassessments are indicated to conclude diagnosis of:Deep Vein Thrombosis (DVT) or Pulmonary Embolism (PE)CRITICAL VALUE VERIFIED. CALLED TO KADEEM GEORGE07/29/22 0913 Andressa Germain.RESULTS READ BACK BY SAME . Estimated Creatinine Clearance Calc 38.95 ml/min [facility] Estimated GFR (MDRD) Amer 64 mL/min >60 [facility] Comment on above: GFR Calc Estimated GFR (MDRD) Non-Af Amer 53 mL/min >60 [facility] Comment on above: Non- GFR Calc Troponin I High Sensitivity 3 pg/mL 3.0-54.0 [facility] Comment on above: Please Note: New Nu t Units and Gender Specific Reference Ranges. For more information see Policy Stat Procedure [place] High Sensitivity Troponin (TNIH) and attachments. Platelets bldOrdered By: Dr. Rosales on 07-29-2022 Platelets (Bld) [#/Vol] 296 10*3/uL 150-450 [facility] Serum or plasma calcium rosangela urement (mass/volume)Ordered By: Dr. Rosales on 07-29-2022 Calcium [Mass/Vol] 8.7 mg/dL 8.5-10.1 [facility] Serum or plasma creatinine m easurement (mass/volume)Ordered By: Dr. Rosales on 07-29-2022 Creatinine [Mass/Vol] 1.08 mg/dL 0.55-1.02 [facility] Comment on above: The validity of the calculated GFR & GFRAA in patients over 70 years has not been determined. Clinical correlation is essential. Serum or plasma urea nitroge n measurement (mass/volume)Ordered By: Dr. Rosales on 07-29-2022 Urea nitrogen [Mass/Vol] 14 mg/dL 7-18 [facility] Thin prep Papanicolaou smear with manual screeningOrdered By: Dr. Rosales on 07-29-2022 Thin prep Papanicolaou smear with manual screening 5 5-15 [facility] Absolute lymphocyte countOrd ered By: Dr. Luis on 07-06-2022 Lymphocytes Auto (Unsp spec) [#/Vol] 1.65 10*3/uL 0.83-4.51 [facility] Basophil percentageOrdered B y: Dr. Luis on 07-06-2022 Basophils/100 WBC (Bld) 1.1 % 0-1 [facility] Bilirubin [Mass/Vol] 0.30 mg/dL 0.20-1.00 [facility] Comment on above: For patients on eltr ombopag therapy, use of Dimension [place] TBIL is not recommended. Chloride [Moles/Vol] 112 mmol/L 98-107 [facility] Eosinophils/100 WBC (Bld) 2.8 % 0-5 [facility] Glucose [Mass/Vol] 97 mg/dL 74-106 [facility] Neutrophils (Bld) [#/Vol] 2.3 10*3/uL 2.0-7.7 [facility] Neutrophils/100 WBC (Bld) 50.8 % 47-70 [facility] Potassium [Moles/Vol] 3.8 mmol/L 3.5-5.1 [facility] Protein [Mass/Vol] 7.1 g/dL 6.4-8.2 [facility] Sodium [Moles/Vol] 141 mmol/L 136-145 [facility] WBC (Bld) [#/Vol] 4.6 10*3/uL 4.4-11.0 [facility] Blood erythrocytes count (nu mber/volume)Ordered By: Dr. Luis on 07-06-2022 RBC (Bld) [#/Vol] 4.35 10*6/uL 4.2-5.4 [facility] Blood hemoglobin measurement (mass/volume)Ordered By: Dr. Luis on 07-06-2022 Hemoglobin (Bld) [Mass/Vol] 13.3 g/dL 12.0-15.0 [facility] Blood lymphocytes/100 leukoc ytesOrdered By: Dr. Luis on 07-06-2022 Lymphocytes/100 WBC (Bld) 35.8 % 19-41 [facility] Blood monocytes/100 leukocyt esOrdered By: Dr. Luis on 07-06-2022 Monocytes/100 WBC (Bld) 9.3 % 0-10 [facility] Blood platelet mean volumeOr dered By: Dr. Luis on 07-06-2022 Platelet mean volume (Bld) [Entitic vol] 9.7 fL 6.2-12.0 [facility] Determination of erythrocyte mean corpuscular volume (MCV)Ordered By: Dr. Luis on 07-06-2022 MCV (RBC) [Entitic vol] 98.4 fL 81-99 [facility] Hematocrit Auto (Bld) [Volum e fraction]Ordered By: Dr. Luis on 07-06-2022 Hematocrit (Bld) [Volume fraction] 42.8 % 37-47 [facility] Laboratory - Chemistry and C hemistry - challengeOrdered By: Dr. Luis on 07-06-2022 ALP [Catalytic activity/Vol] 102 U/L 45-117 [facility] ALT [Catalytic activity/Vol] 17 U/L 13-56 [facility] CO2 [Moles/Vol] 27.0 mmol/L 21.0-32.0 [facility] Globulin (S) [Mass/Vol] 4.0 g/dL 2.2-4.2 [facility] Urea nitrogen/Creatinine [Mass ratio] 8.6 mg/mg 10-20 [facility] Laboratory - Hematology and Cell countsOrdered By: Dr. Luis on 07-06-2022 Erythrocyte distribution width (RBC) [Entitic vol] 50.4 fL 35.1-43.9 [facility] Erythrocyte distribution width (RBC) [Ratio] 13.9 % 11.6-14.6 [facility] Immature granulocytes/100 WBC (Bld) 0.200 % 0.0-0.9 [facility] Comment on above: IG% - Immature Granu locytes (promyelocytes, myelocytes and metamyelocytes) > 1% indicates that a LEFT SHIFT is Present. MCH (RBC) [Entitic mass] 30.6 pg 27.0-32.0 [facility] Nucleated RBC/100 WBC (Bld) [Ratio] 0 % 0-5 [facility] MCHC Auto (RBC) [Mass/Vol]Or dered By: Dr. Luis on 07-06-2022 MCHC (RBC) [Mass/Vol] 31.1 g/dL 32-36 [facility] No Panel InformationOrdered By: Dr. Luis on 07-06-2022 Estimated GFR (MDRD) Amer 76 mL/min >60 [facility] Comment on above: GFR Calc Estimated GFR (MDRD) Non-Af Amer 63 mL/min >60 [facility] Comment on above: Non- GFR Calc Thyroid Stimulating Hormone (TSH) 0.47 uIU/mL 0.358-3.74 [facility] Vitamin D 25-Hydroxy 32.0 ng/mL [facility] Comment on above: Vitamin D 25(OH) Sta tus Range Deficiency <20 ng/mL (50nmol/L) Insufficiency 20 - 30 ng/mL (50 - 75 nmol/L) Sufficiency 30 - 100 ng/mL (75 - 250 nmol/L) Toxicity >100 ng/mL (>250 nmol/L) Platelets bldOrdered By: Dr. Luis on 07-06-2022 Platelets (Bld) [#/Vol] 351 10*3/uL 150-450 [facility] Serum or plasma albumin rosangela urement (mass/volume)Ordered By: Dr. Luis on 07-06-2022 Albumin [Mass/Vol] 3.1 g/dL 3.2-5.0 [facility] Serum or plasma albumin/glob ulin mass ratioOrdered By: Dr. Luis on 07-06-2022 Albumin/Globulin [Mass ratio] 0.8 {ratio} 0.9-2.4 [facility] Serum or plasma calcium rosangela urement (mass/volume)Ordered By: Dr. Luis on 07-06-2022 Calcium [Mass/Vol] 8.9 mg/dL 8.5-10.1 [facility] Serum or plasma creatinine m easurement (mass/volume)Ordered By: Dr. Luis on 07-06-2022 Creatinine [Mass/Vol] 0.94 mg/dL 0.55-1.02 [facility] Comment on above: The validity of the calculated GFR & GFRAA in patients over 70 years has not been determined. Clinical correlation is essential. Serum or plasma urea nitroge n measurement (mass/volume)Ordered By: Dr. Luis on 07-06-2022 Urea nitrogen [Mass/Vol] 8 mg/dL 7-18 [facility] Thin prep Papanicolaou smear with manual screeningOrdered By: Dr. Luis on 07-06-2022 Thin prep Papanicolaou smear with manual screening 17 U/L 15-37 [facility] Thin prep Papanicolaou smear with manual screening 2 5-15 [facility] COVID-19 virus antigen assay Ordered By: Dr. Luis on 06-28-2022 SARS-CoV-2 (COVID-19) Ag IA.rapid Ql (Resp) Not detected Not Detect [facility] Comment on above: Normal Reference Ran ge: Not DetectedMethod:(RT-PCR) real-time reverse transcriptase PCRLuminex BRADY Instrument*The Food and Drug Administration (FDA) has issued an Emergency Use Authorization (EAU) for the BRADY SARS-CoV-2 Assay for the rapid detection of the virus that causes COVID-19. This test has been validated, but [facility] of this validation is pending.*Negative [...] 06-28-2022 Influenza Types A,B Direct FA (STEPHANIE) [facility] No Panel InformationOrdered By: Dr. Luis on 06-28-2022 Influenza Types A,B Direct FA (STEPHANIE) [facility] RSV Ag EIAOrdered By: Harish neal on 06-28-2022 RSV Ag Immune stain Ql (Tiss) [facility] RSV Ag EIAOrdered By: Dr. Desiree neal on 06-28-2022 RSV Ag Immune stain Ql (Tiss) [facility] Basophil percentageOrdered B y: Dr. Manley on 04-24-2022 Chloride [Moles/Vol] 113 mmol/L 98-107 [facility] Glucose [Mass/Vol] 100 mg/dL 74-106 [facility] Comment on above: Fasting Glucose resu lt from 100 to 125 mg/dL suggests IMPAIRED HOMEOSTASIS per A.D.A. criteria. Potassium [Moles/Vol] 3.8 mmol/L 3.5-5.1 [facility] Sodium [Moles/Vol] 143 mmol/L 136-145 [facility] WBC (Bld) [#/Vol] 4.4 10*3/uL 4.4-11.0 [facility] Blood erythrocytes count (nu mber/volume)Ordered By: Dr. Manley on 04-24-2022 RBC (Bld) [#/Vol] 3.86 10*6/uL 4.2-5.4 [facility] Blood hemoglobin measurement (mass/volume)Ordered By: Dr. Manley on 04-24-2022 Hemoglobin (Bld) [Mass/Vol] 12.0 g/dL 12.0-15.0 [facility] Blood platelet mean volumeOr dered By: Dr. Manley on 04-24-2022 Platelet mean volume (Bld) [Entitic vol] 9.6 fL 6.2-12.0 [facility] Determination of erythrocyte mean corpuscular volume (MCV)Ordered By: Dr. Manley on 04-24-2022 MCV (RBC) [Entitic vol] 100.0 fL 81-99 [facility] Hematocrit Auto (Bld) [Volum e fraction]Ordered By: Dr. Manley on 04-24-2022 Hematocrit (Bld) [Volume fraction] 38.6 % 37-47 [facility] INR in Blood by Coagulation assayOrdered By: Dr. Manley on 04-24-2022 INR Coag (Bld) [Relative time] 1.0 {INR} [facility] Laboratory - Chemistry and C hemistry - challengeOrdered By: Dr. Manley on 04-24-2022 CO2 [Moles/Vol] 25.0 mmol/L 21.0-32.0 [facility] Urea nitrogen/Creatinine [Mass ratio] 9.7 mg/mg 10-20 [facility] Laboratory - CoagulationOrde red By: Dr. Manley on 04-24-2022 aPTT Coag (Bld) [Time] 33.1 s 24.1-36.2 [facility] PT Coag (PPP) [Time] 12.8 s 11.7-14.9 [facility] Laboratory - Hematology and Cell countsOrdered By: Dr. Manley on 04-24-2022 Erythrocyte distribution width (RBC) [Entitic vol] 53.3 fL 35.1-43.9 [facility] Erythrocyte distribution width (RBC) [Ratio] 14.3 % 11.6-14.6 [facility] MCH (RBC) [Entitic mass] 31.1 pg 27.0-32.0 [facility] MCHC Auto (RBC) [Mass/Vol]Or dered By: Dr. Manley on 04-24-2022 MCHC (RBC) [Mass/Vol] 31.1 g/dL 32-36 [facility] No Panel InformationOrdered By: Dr. Manley on 04-24-2022 Estimated GFR (MDRD) Amer 77 mL/min >60 [facility] Comment on above: GFR Calc Estimated GFR (MDRD) Non-Af Amer 63 mL/min >60 [facility] Comment on above: Non- GFR Calc Platelets bldOrdered By: Dr. Manley on 04-24-2022 Platelets (Bld) [#/Vol] 408 10*3/uL 150-450 [facility] Serum or plasma calcium rosangela urement (mass/volume)Ordered By: Dr. Manley on 04-24-2022 Calcium [Mass/Vol] 8.8 mg/dL 8.5-10.1 [facility] Serum or plasma creatinine m easurement (mass/volume)Ordered By: Dr. Manley on 04-24-2022 Creatinine [Mass/Vol] 0.93 mg/dL 0.55-1.02 [facility] Comment on above: The validity of the calculated GFR & GFRAA in patients over 70 years has not been determined. Clinical correlation is essential. Serum or plasma urea nitroge n measurement (mass/volume)Ordered By: Dr. Manley on 04-24-2022 Urea nitrogen [Mass/Vol] 9 mg/dL 7-18 [facility] Thin prep Papanicolaou smear with manual screeningOrdered By: Dr. Manley on 04-24-2022 Thin prep Papanicolaou smear with manual screening 5 5-15 [facility] Laboratory - Microbiology an d Antimicrobial susceptibilityOrdered By: Dr. Luis on 04-10-2022 SARS-CoV-2 (COVID-19) RNA ANTIONE+probe Ql (Unsp spec) Not detected Not Detect [facility] Comment on above: Normal Reference Ran ge: [...] 04-10-2022 Influenza Types A,B Direct FA (STEPHANIE) [facility] RSV Ag EIAOrdered By: Dr. Desiree neal on 04-10-2022 RSV Ag Immune stain Ql (Tiss) [facility] Laboratory - Microbiology an d Antimicrobial susceptibilityOrdered By: Dr. Luis on 03-31-2022 SARS-CoV-2 (COVID-19) RNA ANTIONE+probe Ql (Unsp spec) Not detected Not Detect [facility] Comment on above: Normal Reference Ran ge: Not DetectedMethod:(RT-PCR) real-time reverse transcriptase PCRLuminex AppMyDay Instrument*The Food and Drug Administration (FDA) has issued an Emergency Use Authorization (EAU) for the AppMyDay SARS-CoV-2 Assay for the rapid detection of [...] 03-31-2022 Influenza Types A,B Direct FA (STEPHANIE) [facility] RSV Ag EIAOrdered By: Dr. Desiree neal on 03-31-2022 RSV Ag Immune stain Ql (Tiss) [facility] Absolute lymphocyte countOrd ered By: Dr. Luis on 12-28-2021 Lymphocytes Auto (Unsp spec) [#/Vol] 1.82 10*3/uL 0.83-4.51 [facility] Basophil percentageOrdered B y: Dr. Luis on 12-28-2021 Basophils/100 WBC (Bld) 1.0 % 0-1 [facility] Bilirubin [Mass/Vol] 0.50 mg/dL 0.20-1.00 [facility] Comment on above: For patients on eltr ombopag therapy, use of Dimension [place] TBIL is not recommended. Chloride [Moles/Vol] 112 mmol/L 98-107 [facility] Eosinophils/100 WBC (Bld) 1.7 % 0-5 [facility] Glucose [Mass/Vol] 97 mg/dL 74-106 [facility] Neutrophils (Bld) [#/Vol] 1.7 10*3/uL 2.0-7.7 [facility] Neutrophils/100 WBC (Bld) 43.2 % 47-70 [facility] Potassium [Moles/Vol] 3.7 mmol/L 3.5-5.1 [facility] Protein [Mass/Vol] 6.2 g/dL 6.4-8.2 [facility] Sodium [Moles/Vol] 141 mmol/L 136-145 [facility] WBC (Bld) [#/Vol] 4.0 10*3/uL 4.4-11.0 [facility] Blood erythrocytes count (nu mber/volume)Ordered By: Dr. Luis on 12-28-2021 RBC (Bld) [#/Vol] 3.56 10*6/uL 4.2-5.4 [facility] Blood hemoglobin measurement (mass/volume)Ordered By: Dr. Luis on 12-28-2021 Hemoglobin (Bld) [Mass/Vol] 11.2 g/dL 12.0-15.0 [facility] Blood lymphocytes/100 leukoc ytesOrdered By: Dr. Luis on 12-28-2021 Lymphocytes/100 WBC (Bld) 45.2 % 19-41 [facility] Blood monocytes/100 leukocyt esOrdered By: Dr. Luis on 12-28-2021 Monocytes/100 WBC (Bld) 8.7 % 0-10 [facility] Blood platelet mean volumeOr dered By: Dr. Luis on 12-28-2021 Platelet mean volume (Bld) [Entitic vol] 11.1 fL 6.2-12.0 [facility] Determination of erythrocyte mean corpuscular volume (MCV)Ordered By: Dr. Luis on 12-28-2021 MCV (RBC) [Entitic vol] 96.1 fL 81-99 [facility] Hematocrit Auto (Bld) [Volum e fraction]Ordered By: Dr. Luis on 12-28-2021 Hematocrit (Bld) [Volume fraction] 34.2 % 37-47 [facility] Laboratory - Chemistry and C hemistry - challengeOrdered By: Dr. Luis on 12-28-2021 ALP [Catalytic activity/Vol] 68 U/L 45-117 [facility] ALT [Catalytic activity/Vol] 14 U/L 13-56 [facility] CO2 [Moles/Vol] 25.0 mmol/L 21.0-32.0 [facility] Globulin (S) [Mass/Vol] 3.0 g/dL 2.2-4.2 [facility] Urea nitrogen/Creatinine [Mass ratio] 8.5 mg/mg 10-20 [facility] Laboratory - Hematology and Cell countsOrdered By: Dr. Luis on 12-28-2021 Erythrocyte distribution width (RBC) [Entitic vol] 46.9 fL 35.1-43.9 [facility] Erythrocyte distribution width (RBC) [Ratio] 13.2 % 11.6-14.6 [facility] Immature granulocytes/100 WBC (Bld) 0.200 % 0.0-0.9 [facility] Comment on above: IG% - Immature Granu locytes (promyelocytes, myelocytes and metamyelocytes) > 1% indicates that a LEFT SHIFT is Present. MCH (RBC) [Entitic mass] 31.5 pg 27.0-32.0 [facility] Nucleated RBC/100 WBC (Bld) [Ratio] 0 % 0-5 [facility] MCHC Auto (RBC) [Mass/Vol]Or dered By: Dr. Luis on 12-28-2021 MCHC (RBC) [Mass/Vol] 32.7 g/dL 32-36 [facility] No Panel InformationOrdered By: Dr. Luis on 12-28-2021 Estimated GFR (MDRD) Amer 66 mL/min >60 [facility] Comment on above: GFR Calc Estimated GFR (MDRD) Non-Af Amer 54 mL/min >60 [facility] Comment on above: Non- GFR Calc Thyroid Stimulating Hormone (TSH) 0.74 uIU/mL 0.358-3.74 [facility] Vitamin D 25-Hydroxy 45.5 ng/mL [facility] Comment on above: Vitamin D 25(OH) Sta tus Range Deficiency <20 ng/mL (50nmol/L) Insufficiency 20 - 30 ng/mL (50 - 75 nmol/L) Sufficiency 30 - 100 ng/mL (75 - 250 nmol/L) Toxicity >100 ng/mL (>250 nmol/L) Platelets bldOrdered By: Dr. Luis on 12-28-2021 Platelets (Bld) [#/Vol] 247 10*3/uL 150-450 [facility] Serum or plasma albumin rosangela urement (mass/volume)Ordered By: Dr. Luis on 12-28-2021 Albumin [Mass/Vol] 3.2 g/dL 3.2-5.0 [facility] Serum or plasma albumin/glob ulin mass ratioOrdered By: Dr. Luis on 12-28-2021 Albumin/Globulin [Mass ratio] 1.1 {ratio} 0.9-2.4 [facility] Serum or plasma calcium rosangela urement (mass/volume)Ordered By: Dr. Luis on 12-28-2021 Calcium [Mass/Vol] 8.8 mg/dL 8.5-10.1 [facility] Serum or plasma creatinine m easurement (mass/volume)Ordered By: Dr. Luis on 12-28-2021 Creatinine [Mass/Vol] 1.06 mg/dL 0.55-1.02 [facility] Comment on above: The validity of the calculated GFR & GFRAA in patients over 70 years has not been determined. Clinical correlation is essential. Serum or plasma urea nitroge n measurement (mass/volume)Ordered By: Dr. Luis on 12-28-2021 Urea nitrogen [Mass/Vol] 9 mg/dL 7-18 [facility] Thin prep Papanicolaou smear with manual screeningOrdered By: Dr. Luis on 12-28-2021 Thin prep Papanicolaou smear with manual screening 13 U/L 15-37 [facility] Thin prep Papanicolaou smear with manual screening 4 5-15 [facility] Laboratory - Microbiology an d Antimicrobial susceptibilityon 12-01-2021 SARS-CoV-2 (COVID-19) RNA ANTIONE+probe Ql (Unsp spec) Not detected Not Detect [facility] Work Phone: Comment on above: Normal Reference [...] Auto (Unsp spec) [#/Vol] 1.71 10*3/uL 0.83-4.51 [facility] Work Phone: Basophil percentageon 2021 Basophils/100 WBC (Bld) 1.2 % 0-1 [facility] Work Phone: Bilirubin [Mass/Vol] 0.30 mg/dL 0.20-1.00 [facility] Work Phone: Comment on above: For patients on eltr ombopag therapy, use of Dimension [place] TBIL is not recommended. Chloride [Moles/Vol] 106 mmol/L 98-107 [facility] Work Phone: Eosinophils/100 WBC (Bld) 0.9 % 0-5 [facility] Work Phone: Glucose [Mass/Vol] 117 mg/dL 74-106 [facility] Work Phone: Comment on above: Fasting Glucose resu lt from 100 to 125 mg/dL suggests IMPAIRED HOMEOSTASIS per A.D.A. criteria. Neutrophils (Bld) [#/Vol] 1.2 10*3/uL 2.0-7.7 [facility] Work Phone: Neutrophils/100 WBC (Bld) 37.4 % 47-70 [facility] Work Phone: Potassium [Moles/Vol] 3.7 mmol/L 3.5-5.1 [facility] Work Phone: Protein [Mass/Vol] 6.4 g/dL 6.4-8.2 [facility]: Sodium [Moles/Vol] 137 mmol/L 136-145 [facility] Work Phone: WBC (Bld) [#/Vol] 3.3 10*3/uL 4.4-11.0 [facility] Work Phone: Blood erythrocytes count (nu mber/volume)on 06-27-2021 RBC (Bld) [#/Vol] 3.82 10*6/uL 4.2-5.4 [facility]: Blood hemoglobin measurement (mass/volume)on 06-27-2021 Hemoglobin (Bld) [Mass/Vol] 12.2 g/dL 12.0-15.0 [facility] Work Phone: Blood lymphocytes/100 leukoc yteson 06-27-2021 Lymphocytes/100 WBC (Bld) 51.7 % 19-41 [facility] Work Phone: Blood monocytes/100 leukocyt eson 06-27-2021 Monocytes/100 WBC (Bld) 8.5 % 0-10 [facility] Work Phone: Blood platelet mean volumeon 06-27-2021 Platelet mean volume (Bld) [Entitic vol] 10.5 fL 6.2-12.0 [facility] Work Phone: Determination of erythrocyte mean corpuscular volume (MCV)on 06-27-2021 MCV (RBC) [Entitic vol] 95.0 fL 81-99 [facility] Work Phone: Hematocrit Auto (Bld) [Volum e fraction]on 06-27-2021 Hematocrit (Bld) [Volume fraction] 36.3 % 37-47 [facility] Work Phone: Laboratory - Chemistry and C hemistry - challengeon 06-27-2021 ALP [Catalytic activity/Vol] 74 U/L 45-117 [facility] Work Phone: [phone] ALT [Catalytic activity/Vol] 27 U/L 13-56 [facility] Work Phone: [phone] CO2 [Moles/Vol] 25.0 mmol/L 21.0-32.0 [facility] Work Phone: [phone] Globulin (S) [Mass/Vol] 3.2 g/dL 2.2-4.2 [facility] Work Phone: [phone] Urea nitrogen/Creatinine [Mass ratio] 6.4 mg/mg 10-20 [facility] Work Phone: [phone] Laboratory - Hematology and Cell countson 06-27-2021 Erythrocyte distribution width (RBC) [Entitic vol] 44.8 fL 35.1-43.9 [facility] Work Phone: [phone] Erythrocyte distribution width (RBC) [Ratio] 12.9 % 11.6-14.6 [facility] Work Phone: [phone] Immature granulocytes/100 WBC (Bld) 0.300 % 0.0-0.9 [facility] Work Phone: [phone] Comment on above: IG% - Immature Granu locytes (promyelocytes, myelocytes and metamyelocytes) > 1% indicates that a LEFT SHIFT is Present. MCH (RBC) [Entitic mass] 31.9 pg 27.0-32.0 [facility] Work Phone: [phone] Nucleated RBC/100 WBC (Bld) [Ratio] 0.6 % 0-5 [facility] Work Phone: [phone] MCHC Auto (RBC) [Mass/Vol]on 06-27-2021 MCHC (RBC) [Mass/Vol] 33.6 g/dL 32-36 [facility] Work Phone: [phone] No Panel Informationon 06-27 Estimated GFR (MDRD) Amer 63 mL/min >60 [facility] Work Phone: Comment on above: GFR Calc Estimated GFR (MDRD) Non-Af Amer 52 mL/min >60 [facility] Work Phone: Comment on above: Non- GFR Calc Thyroid Stimulating Hormone (TSH) 0.50 uIU/mL 0.358-3.74 [facility] Work Phone: Vitamin D 25-Hydroxy 29.8 ng/mL [facility] Work Phone: Comment on above: Vitamin D 25(OH) Sta tus Range Deficiency <20 ng/mL (50nmol/L) Insufficiency 20 - 30 ng/mL (50 - 75 nmol/L) Sufficiency 30 - 100 ng/mL (75 - 250 nmol/L) Toxicity >100 ng/mL (>250 nmol/L) Platelets bldon 06-27-2021 Platelets (Bld) [#/Vol] 282 10*3/uL 150-450 [facility] Work Phone: Serum or plasma albumin rosangela urement (mass/volume)on 06-27-2021 Albumin [Mass/Vol] 3.2 g/dL 3.2-5.0 [facility] Work Phone: Serum or plasma albumin/glob ulin mass ratioon 06-27-2021 Albumin/Globulin [Mass ratio] 1.0 {ratio} 0.9-2.4 [facility] Work Phone: Serum or plasma calcium rosangela urement (mass/volume)on 06-27-2021 Calcium [Mass/Vol] 8.6 mg/dL 8.5-10.1 [facility] Work Phone: Serum or plasma creatinine m easurement (mass/volume)on 06-27-2021 Creatinine [Mass/Vol] 1.10 mg/dL 0.55-1.02 [facility] Work Phone: Comment on above: The validity of the calculated GFR & GFRAA in patients over 70 years has not been determined. Clinical correlation is essential. Serum or plasma urea nitroge n measurement (mass/volume)on 06-27-2021 Urea nitrogen [Mass/Vol] 7 mg/dL 7-18 [facility] Work Phone: Thin prep Papanicolaou smear with manual screeningon 06-27-2021 Thin prep Papanicolaou smear with manual screening 24 U/L 15-37 [facility] Work Phone: Thin prep Papanicolaou smear with manual screening 6 5-15 [facility] Work Phone: No Panel Information Influenza Types A,B Direct FA (STEPHANIE) [facility] Work Phone: Vital Signs Date Time Vital Sign Value Performing Clinician Facility 08-29-2024 07:54-0400 Body temperature 97.1 [degF] Dr. Harish Luis MD Work Phone: [facility] 08-29-2024 07:54-0400 Diastolic blood pressure 89 mm[Hg] Dr. Harish Luis MD Work Phone: [facility] 08-29-2024 07:54-0400 Heart rate 80 /min Dr. Harish Luis MD Work Phone: [facility] 08-29-2024 07:54-0400 Respiratory rate 18 /min Dr. Harish Luis MD Work Phone: [facility] 08-29-2024 07:54-0400 SaO2% (BldA) [Mass fraction] 93 % Dr. Harish Luis MD Work Phone: [facility] 08-29-2024 07:54-0400 Systolic blood pressure 141 mm[Hg] Dr. Harish Luis MD Work Phone: [facility] 08-28-2024 10:15-0400 Body height 157.[address] Harish Luis MD Work Phone: [facility] 08-28-2024 10:15-0400 Body weight 48.[address] Harish Luis MD Work Phone: [facility] 08-27-2024 20:46-0400 Body mass index (BMI) [Ratio] 19.7 kg/m2 Dr. Harish Luis MD Work Phone: 3(429)559-647343 [place] [address] 08-27-2024 20:00-0400 Diastolic blood pressure 94 mm[Hg] Dr. Harish Luis MD Work Phone: 1(801)797-964943 [place] [address] 08-27-2024 20:00-0400 Heart rate 103 /min Dr. Harish Luis MD Work Phone: 9(697)091-142143 [place] [address] 08-27-2024 20:00-0400 Respiratory rate 30 /min Dr. Harish Luis MD Work Phone: 6(616)870-049864 [place] [address] 08-27-2024 20:00-0400 Systolic blood pressure 142 mm[Hg] Dr. Harish Luis MD Work Phone: 5(321)989-602164 [place] [address] 08-27-2024 18:05-0400 Body temperature 100.9 [degF] Dr. Harish Luis MD Work Phone: 2(596)039-510864 [place] [address] 08-27-2024 18:05-0400 SaO2% (BldA) [Mass fraction] 93 % Dr. Harish Luis MD Work Phone: 1(702)069-937464 [place] [address] 08-27-2024 15:36-0400 Body height 157.[address] Harish Luis MD Work Phone: 5(808)454-962564 [place] [address] 08-27-2024 15:36-0400 Body mass index (BMI) [Ratio] 19.8 kg/m2 Dr. Harish Luis MD Work Phone: 7(158)431-833764 [place] [address] 08-27-2024 15:36-0400 Body weight [address] Harish Luis MD Work Phone: 5(243)860-439843 [place] [address] 06-04-2024 15:44-0400 Body mass index (BMI) [Ratio] 20.1 kg/m2 Dr. Harish Luis MD Work Phone: 8(294)435-439564 [place] [address] 06-04-2024 15:44-0400 Body weight [address] Harish Luis MD Work Phone: 6(138)094-269164 [place] [address] 06-04-2024 15:08-0400 Body height 157.[address] Harish Luis MD Work Phone: [facility] 06-04-2024 15:08-0400 Body temperature 97 [degF] Dr. Harish Luis MD Work Phone: [facility] 06-04-2024 15:08-0400 Diastolic blood pressure 81 mm[Hg] Dr. Harish Luis MD Work Phone: [facility] 06-04-2024 15:08-0400 Heart rate 106 /min Dr. Harish Luis MD Work Phone: [facility] 06-04-2024 15:08-0400 Respiratory rate 19 /min Dr. Harish Luis MD Work Phone: [facility] 06-04-2024 15:08-0400 SaO2% (BldA) [Mass fraction] 98 % Dr. Harish Luis MD Work Phone: [facility] 06-04-2024 15:08-0400 Systolic blood pressure 130 mm[Hg] Dr. Harish Luis MD Work Phone: [facility] 07-30-2023 18:02-0400 Body temperature 97.6 [degF] [facility] 07-30-2023 18:02-0400 Diastolic blood pressure 63 mm[Hg] [facility] 07-30-2023 18:02-0400 Heart rate 90 /min [facility] 07-30-2023 18:02-0400 Inhaled oxygen flow rate 3 L/min [facility] 07-30-2023 18:02-0400 Respiratory rate 17 /min [facility] 07-30-2023 18:02-0400 SaO2% (BldA) [Mass fraction] 95 % [facility] 07-30-2023 18:02-0400 Systolic blood pressure 113 mm[Hg] [facility] 07-30-2023 13:51-0400 Body mass index (BMI) [Ratio] 22.4 kg/m2 [facility] 07-30-2023 13:51-0400 Body weight 55.[address] [facility] 07-30-2023 13:35-0400 Body height 157.[address] [facility] 07-24-2023 22:13-0400 Body temperature 97.1 [degF] [facility] 07-24-2023 22:13-0400 Diastolic blood pressure 77 mm[Hg] [facility] 07-24-2023 22:13-0400 Heart rate 61 /min [facility] 07-24-2023 22:13-0400 Respiratory rate 18 /min [facility] 07-24-2023 22:13-0400 SaO2% (BldA) [Mass fraction] 93 % [facility] 07-24-2023 22:13-0400 Systolic blood pressure 137 mm[Hg] [facility] 07-24-2023 19:51-0400 Body height 157.[address] [facility] 03-17-2023 13:31-0500 Body height 160.[address] [facility] 03-17-2023 13:31-0500 Body temperature 98 [degF] [facility] 03-17-2023 13:31-0500 Diastolic blood pressure 73 mm[Hg] [facility] 03-17-2023 13:31-0500 Heart rate 87 /min [facility] 03-17-2023 13:31-0500 Respiratory rate 14 /min [facility] 03-17-2023 13:31-0500 SaO2% (BldA) [Mass fraction] 97 % [facility] 03-17-2023 13:31-0500 Systolic blood pressure 128 mm[Hg] [facility] 11-04-2022 09:15-0400 Body temperature 98.2 [degF] Dr. Harish Luis Work Phone: [facility] 11-04-2022 09:15-0400 Diastolic blood pressure 75 mm[Hg] Dr. Harish Luis Work Phone: [facility] 11-04-2022 09:15-0400 Heart rate 88 /min Dr. Harish Luis Work Phone: [facility] 11-04-2022 09:15-0400 Respiratory rate 14 /min Dr. Harish Luis Work Phone: [facility] 11-04-2022 09:15-0400 SaO2% (BldA) [Mass fraction] 96 % Dr. Harish Luis Work Phone: [facility] 11-04-2022 09:15-0400 Systolic blood pressure 137 mm[Hg] Dr. Harish Luis Work Phone: 6(632)179-011643 [place] [address] 11-03-2022 12:44-0400 Body height 160.[address] Harish Luis Work Phone: 6(490)009-890143 [place] [address] 11-03-2022 12:44-0400 Body weight 48.[address] Harish Luis Work Phone: 7(128)737-853822 [address] 11-03-2022 10:59-0400 Body mass index (BMI) [Ratio] 18.9 kg/m2 Dr. Harish Luis Work Phone: 8(088)268-141643 [place] [address] 11-01-2022 11:00-0400 Diastolic blood pressure 54 mm[Hg] Dr. Harish Luis Work Phone: 4(699)871-494243 [place] [address] 11-01-2022 11:00-0400 Systolic blood pressure 110 mm[Hg] Dr. Harish Luis Work Phone: 0(757)400-410622 [address] 11-01-2022 10:01-0400 Body temperature 98.3 [degF] Dr. Harish Luis Work Phone: 5(651)303-410043 [place] [address] 11-01-2022 10:01-0400 Heart rate 69 /min Dr. Harish Luis Work Phone: [facility] 11-01-2022 10:01-0400 Respiratory rate 13 /min Dr. Harish Luis Work Phone: 6(085)402-944943 [place] [address] 11-01-2022 10:01-0400 SaO2% (BldA) [Mass fraction] 99 % Dr. Harish Luis Work Phone: 4(659)865-612843 [place] [address] 11-01-2022 07:48-0400 Body height 159.[address] Harish Luis Work Phone: 4(478)727-078243 [place] [address] 11-01-2022 07:48-0400 Body mass index (BMI) [Ratio] 19.7 kg/m2 Dr. Harish Luis Work Phone: 2(531)011-858943 [place] [address] 11-01-2022 07:48-0400 Body weight 50.[address] Harish Luis Work Phone: [facility] 10-14-2022 08:16-0400 SaO2% (BldA) [Mass fraction] 95 % Dr. Harish Luis Work Phone: 6(977)388-734243 [place] [address] 10-14-2022 04:08-0400 Body mass index (BMI) [Ratio] 19.4 kg/m2 Dr. Harish Luis Work Phone: 6(831)805-994843 [place] [address] 10-14-2022 04:08-0400 Body weight 49.[address] Harish Luis Work Phone: 2(546)225-454443 [place] [address] 10-14-2022 04:06-0400 Body temperature 98.6 [degF] Dr. Harish Luis Work Phone: 8(713)414-088943 [place] [address] 10-14-2022 04:06-0400 Diastolic blood pressure 62 mm[Hg] Dr. Harish Luis Work Phone: 7(978)488-008443 [place] [address] 10-14-2022 04:06-0400 Heart rate 79 /min Dr. Harish Luis Work Phone: 7(317)359-239543 [place] [address] 10-14-2022 04:06-0400 Respiratory rate 16 /min Dr. Harish Luis Work Phone: 3(367)357-230343 [place] [address] 10-14-2022 04:06-0400 Systolic blood pressure 105 mm[Hg] Dr. Harish Luis Work Phone: 4(751)461-222143 [place] [address] 10-13-2022 15:38-0400 Body height 160.[address] Harish Luis Work Phone: 6(080)446-856843 [place] [address] 10-13-2022 14:58-0400 Body temperature 98.1 [degF] Dr. Harish Luis Work Phone: 4(524)666-260543 [place] [address] 07-28-2023 14:58-0400 Diastolic blood pressure 67 mm[Hg] Dr. Harish Luis Work Phone: [facility] 10-13-2022 14:58-0400 Heart rate 74 /min Dr. Harish Luis Work Phone: [facility] 10-13-2022 14:58-0400 Respiratory rate 16 /min Dr. Harish Luis Work Phone: 5(986)534-841943 [place] [address] 10-13-2022 14:58-0400 SaO2% (BldA) [Mass fraction] 95 % Dr. Harish Luis Work Phone: 0(440)556-188543 [place] [address] 10-13-2022 14:58-0400 Systolic blood pressure 121 mm[Hg] Dr. Harish Luis Work Phone: 4(304)339-056864 [place] [address] 10-13-2022 10:04-0400 Body height 160.[address] Harish Luis Work Phone: 3(806)930-152464 [place] [address] 10-13-2022 10:04-0400 Body mass index (BMI) [Ratio] 18.6 kg/m2 Dr. Harish Luis Work Phone: 6(270)100-720564 [place] [address] 10-13-2022 10:04-0400 Body weight 47.[address] Harish Luis Work Phone: 4(473)674-715943 [place] [address] 08-26-2022 04:35-0400 Diastolic blood pressure 79 mm[Hg] Dr. Harish Luis Work Phone: 8(739)197-064843 [place] [address] 08-26-2022 04:35-0400 Heart rate 69 /min Dr. Harish Luis Work Phone: 1(648)921-611843 [place] [address] 08-26-2022 04:35-0400 Respiratory rate 15 /min Dr. Harish Luis Work Phone: 1(275)136-921743 [place] [address] 08-26-2022 04:35-0400 SaO2% (BldA) [Mass fraction] 95 % Dr. Harish Luis Work Phone: [facility] 08-26-2022 04:35-0400 Systolic blood pressure 143 mm[Hg] Dr. Harish Luis Work Phone: [facility] 08-26-2022 02:42-0400 Body mass index (BMI) [Ratio] 19.6 kg/m2 Dr. Harish Luis Work Phone: 3(325)315-637743 [place] [address] 08-26-2022 02:42-0400 Body temperature 97.5 [degF] Dr. Harish Luis Work Phone: 8(507)514-510643 [place] [address] 08-26-2022 02:42-0400 Body weight 50.[address] Harish Luis Work Phone: 4(236)509-828722 [address] 08-03-2022 15:30-0400 Body temperature 98.1 [degF] Dr. Harish Luis Work Phone: 9(352)368-646564 [place] [address] 08-03-2022 15:30-0400 Diastolic blood pressure 81 mm[Hg] Dr. Harish Luis Work Phone: 5(835)479-427364 [place] [address] 08-03-2022 15:30-0400 Heart rate 66 /min Dr. Harish Luis Work Phone: 6(166)856-702364 [place] [address] 08-03-2022 15:30-0400 Respiratory rate 16 /min Dr. Harish Luis Work Phone: 1(108)845-690564 [place] [address] 08-03-2022 15:30-0400 SaO2% (BldA) [Mass fraction] 93 % Dr. Harish uLis Work Phone: 6(400)976-945264 [place] [address] 08-03-2022 15:30-0400 Systolic blood pressure 133 mm[Hg] Dr. Harish Luis Work Phone: 6(843)633-402043 [place] [address] 08-03-2022 12:57-0400 Body mass index (BMI) [Ratio] 21.4 kg/m2 Dr. Harish Luis Work Phone: 7(014)387-999464 [place] [address] 08-03-2022 11:31-0400 Inhaled oxygen flow rate 2 L/min Dr. Harish Luis Work Phone: 9(937)908-665943 [place] [address] 08-02-2022 14:18-0400 Body weight 54.[address] Harish Luis Work Phone: 6(726)101-606543 [place] [address] 07-29-2022 09:48-0400 Body temperature 97.2 [degF] Dr. Harish Luis Work Phone: 5(569)375-369864 [place] [address] 07-29-2022 09:48-0400 Diastolic blood pressure 78 mm[Hg] Dr. Harish Luis Work Phone: 8(954)738-420564 [place] [address] 07-29-2022 09:48-0400 Heart rate 90 /min Dr. Harish Luis Work Phone: 3(166)417-112064 [place] [address] 07-29-2022 09:48-0400 Inhaled oxygen flow rate 4 L/min Dr. Harish Luis Work Phone: 5(593)028-907764 [place] [address] 07-29-2022 09:48-0400 Respiratory rate 20 /min Dr. Harish Luis Work Phone: 8(069)258-353164 [place] [address] 07-29-2022 09:48-0400 SaO2% (BldA) [Mass fraction] 95 % Dr. Harish Luis Work Phone: 2(188)040-607164 [place] [address] 07-29-2022 09:48-0400 Systolic blood pressure 112 mm[Hg] Dr. Harish Luis Work Phone: 2(592)024-070664 [place] [address] 07-29-2022 07:43-0400 Body height 160.[address] Harish Luis Work Phone: 4(754)620-221464 [place] [address] 07-29-2022 07:43-0400 Body mass index (BMI) [Ratio] 24.2 kg/m2 Dr. Harish Luis Work Phone: 7(308)398-833864 [place] [address] 07-29-2022 07:43-0400 Body weight 62.[address] Harish Luis Work Phone: 7(236)584-311664 [place] [address] 04-27-2022 08:40-0500 Body temperature 97.5 [degF] Dr. Harish Luis Work Phone: 2(308)247-507764 [place] [address] 04-27-2022 08:40-0500 Diastolic blood pressure 62 mm[Hg] Dr. Harish Luis Work Phone: 8(979)956-636364 [place] [address] 04-27-2022 08:40-0500 Heart rate 79 /min Dr. Harish Luis Work Phone: [facility] 04-27-2022 08:40-0500 Respiratory rate 16 /min Dr. Harish Luis Work Phone: [facility] 04-27-2022 08:40-0500 SaO2% (BldA) [Mass fraction] 96 % Dr. Harish Luis Work Phone: [facility] 04-27-2022 08:40-0500 Systolic blood pressure 105 mm[Hg] Dr. Harish Luis Work Phone: [facility] 04-27-2022 06:26-0500 Body height 160.[address] Harish Luis Work Phone: [facility] 04-27-2022 06:26-0500 Body mass index (BMI) [Ratio] 18.3 kg/m2 Dr. Harish Luis Work Phone: [facility] 04-27-2022 06:26-05[address] Body weight [address] Harish Luis Work Phone: [facility] Encounters Encounter Date Encounter Type Care Provider Facility Start: 08-28-2024 Non-patient / Non-visit [facility]. Crowell [facility] Work Phone: Start: 08-27-2024 ambulatory Christofer Espino Fac ility:[facility] Start: 08-27-2024 End: 08-29-2024 Evaluation and management of inpatient Dr. Christofer Espino DO [facility] Work Phone: Start: 07-15-2024 End: 07-15-[address] Harish Luis MD -Cat Scan [facility] Work Phone: Start: 07-15-2024 End: 07-15-2024 ambulatory Harish Luis Facility:[facility] Start: 06-04-2024 End: 06-04-2024 Emergency department patient visit Dr. Harish Luis MD Work Phone: -Emergency Department Work Phone: Start: 03-31-2024 End: 03-31-[address] Harish Luis MD -Cat Scan, [facility] Work Phone: Start: 03-31-2024 End: 03-31-2024 ambulatory Harish Luis Facility:[facility] Start: 02-19-2024 End: 02-19-[address] Harish Luis MD -Laboratory, Phy Office 3rd Flr Start: 02-19-2024 End: 02-19-2024 ambulatory Harish Mark Toby Facility:[facility] Start: 01-09-2024 End: 01-09-2024 ambulatory [facility] Toby Facility:[facility] Start: 01-03-2024 ambulatory Harish [facility] Tob[facility] Facility:[facility] Start: 01-03-2024 End: 01-04-2024 Evaluation and management of inpatient Harish Flores Toby Facility:[facility] Start: 12-12-2023 End: 12-12-2023 ambulatory Jesse Prayson Facility:[facility] Start: 12-06-2023 End: 12-06-2023 ambulatory Daniel Mollison Facility:[facility] Start: 11-28-2023 End: 11-28-2023 ambulatory Daniel Mollison Facility:[facility] Start: 11-02-2023 End: 11-02-2023 ambulatory Daniel Mollison Facility:[facility] Start: 10-18-2023 ambulatory Daniel Mollison Facility :[facility] Start: 10-12-2023 ambulatory Daniel Mollison Facility :[facility] Start: 10-01-2023 ambulatory Daniel Mollison Facility :[facility] Start: 07-30-2023 Evaluation and management of inpatient [facility]-Progressive Care Unit Work Phone: Start: 07-27-2023 Patient encounter procedure [facility]-Radiology, [facility] Work Phone: Start: 07-24-2023 End: 07-24-2023 Emergency department patient visit [facility]-Emergency Department Work Phone: Start: 07-11-2023 End: 07-11-2023 ambulatory [facility] Work Phone: Start: 07-11-2023 End: 07-11-2023 Patient encounter procedure [facility] Office 3rd Flr Start: 06-27-2023 End: 06-27-2023 ambulatory [facility] Work Phone: Start: 06-27-2023 End: 06-27-2023 Patient encounter procedure [facility] Office 3rd Flr Start: 03-17-2023 End: 03-17-2023 [facility] Start: 01-01-2023 End: 01-01-[address] Harish Luis Work Phone: [facility] Work Phone: Start: 01-01-2023 End: 01-01-[address] Harish Luis Work Phone: [facility] Office 3rd Flr Start: 11-04-2022 Non-patient / Non-visit Dr. Levar Luis Work Phone: [facility] Work Phone: Start: 11-03-2022 Non-patient / Non-visit Dr. Levar Luis Work Phone: [facility] Start: 11-03-2022 Non-patient / Non-visit Dr. Levar Luis Work Phone: [facility] Work Phone: Start: 11-03-2022 End: 11-03-2022 Non-patient / Non-visit Dr. Harish Luis Work Phone: [facility] Work Phone: Start: 11-02-2022 Non-patient / Non-visit Dr. Levar Luis Work Phone: [facility] Start: 11-02-2022 Non-patient / Non-visit Dr. Levar Luis Work Phone: [facility] Work Phone: Start: 11-01-2022 Non-patient / Non-visit Dr. Levar Luis Work Phone: [facility] Work Phone: Start: 11-01-2022 End: 11-04-2022 Evaluation and management of inpatient Dr. Harish Luis Work Phone: [facility]-Progressive Care Unit Work Phone: Start: 10-14-2022 Non-patient / Non-visit Dr. Levar Luis Work Phone: [facility] Start: 10-13-2022 Non-patient / Non-visit Dr. Levar Luis Work Phone: [facility] Work Phone: Start: 10-13-2022 End: 10-14-2022 Evaluation and management of inpatient [facility]ish [facility] Work Phone: Start: 10-12-2022 End: 10-12-[address] Harish Luis Work Phone: [facility] Work Phone: Start: 10-12-2022 End: 10-12-[address] Harish Luis Work Phone: [facility] Work Phone: Start: 08-26-2022 End: 08-26-2022 Emergency department patient visit Dr. Harish Luis Work Phone: [facility]-Emergency Department Work Phone: Start: 08-03-2022 Non-patient / Non-visit Dr. Levar Luis Work Phone: [facility] Start: 08-02-2022 Non-patient / Non-visit Dr. Levar Luis Work Phone: [facility] Start: 08-02-2022 Non-patient / Non-visit Dr. Levar Luis Work Phone: [facility] Work Phone: Start: 08-01-2022 Non-patient / Non-visit Dr. Levar Luis Work Phone: [facility] Start: 08-01-2022 Non-patient / Non-visit Dr. Levar Luis Work Phone: [facility] Work Phone: Start: 07-31-2022 Non-patient / Non-visit Dr. Levar Luis Work Phone: [facility] Work Phone: Start: 07-30-2022 Non-patient / Non-visit Dr. Levar Luis Work Phone: [facility] Work Phone: Start: 07-29-2022 Non-patient / Non-visit Dr. Levar Luis Work Phone: [facility] Work Phone: Start: 07-29-2022 End: 08-03-2022 Evaluation and management of inpatient Dr. Harish Luis Work Phone: [facility]-Progressive Care Unit Start: 07-06-2022 End: 07-06-[address] Harish Luis Work Phone: [facility] Work Phone: Start: 07-06-2022 End: 07-06-[address] Harish Luis Work Phone: [facility] Start: 06-28-2022 End: 06-28-[address] Harish Luis Work Phone: [facility]-Pulmonary Services/Neurology Start: 04-27-2022 End: 04-27-2022 Admission to same day surgery center [facility] Harish Luis [facility] Start: 04-24-2022 End: 04-24-2022 Non-patient / Non-visit Dr. Harish Luis Work Phone: [facility] Start: 04-10-2022 End: 04-10-2022 ambulatory [facility] Work Phone: Start: 04-10-2022 End: 04-10-2022 Patient encounter procedure [facility]-Pulmonary Services/Neurology Start: 03-31-2022 End: 03-31-2022 ambulatory [facility] Work Phone: Start: 03-31-2022 End: 03-31-2022 Patient encounter procedure [facility]-Pulmonary Services/Neurology Start: 12-28-2021 End: 12-28-2021 ambulatory [facility] Work Phone: Start: 12-28-2021 End: 12-28-2021 Patient encounter procedure [facility]-Laboratory, Phy Office 3rd Flr Start: 12-01-2021 End: 12-01-2021 ambulatory [facility] Work Phone: Start: 12-01-2021 End: 12-01-2021 Patient encounter procedure [facility]-Pulmonary Services/Neurology Start: 06-27-2021 End: 06-27-2021 Patient encounter procedure [facility]-Laboratory, Phy Office 3rd Flr Procedures Date Procedure Procedure Detail Performing Clinician Start: 08-29-[address] Harish sanderson MD Work Phone: Start: 08-28-2024 Serum inorganic phosphate measurement Dr. Harish Luis MD Work Phone: Start: 08-27-2024 Urnls dip stick/tablet reagent auto microscopy Dr. Harish Luis MD Work Phone: Start: 08-27-[address] Harish sanderson MD Work Phone: Start: 08-27-2024 Plain chest X-ray Dr. Harish Luis MD Work Phone: Start: 08-27-2024 Legionella pneumophila antigen assay Dr. Harish Luis MD Work Phone: Start: 08-27-2024 End: 08-27-2024 Streptococcus pneumoniae antigen assay Dr. Harish Luis MD Work Phone: Start: [...] 11-01-2022 SARS-CoV-2 & FLU Antigen (Rapid) Dr. Hraish Luis Work Phone: Start: 11-01-2022 Diagnostic lumbar [...] Respiratory syncytial virus antigen assay Dr. Harish Lusi Work Phone: Start: 04-27-[address] [...] Treatment Date Care Activity Detail Author Start: 08-29-2024 Patient discharge [facility] Start: 08-28-2024 Referral to gastroenterology service [facility] Start: 08-27-2024 Following clinical pathway protocol [facility] Start: 08-27-2024 Ambulation without limitation [facility] Start: 08-27-2024 Assessment of risk of venous thromboembolism [facility] Start: 08-27-2024 Insertion of catheter into peripheral vein [facility] Start: 08-27-2024 Oxygen therapy [facility] Start: 08-27-2024 Providing care according to standard [facility] Start: 08-27-2024 Referral to occupational therapist [facility] Start: 08-27-2024 Referral to service [facility] Start: 08-27-2024 Speech therapy assessment [facility] Start: 08-27-2024 Streptococcus pneumoniae antigen assay [facility] Start: 08-27-2024 Hospital admission, emergency, from emergency room, medical nature [facility] Start: 08-27-2024 Verification routine [facility] Start: 08-27-2024 Admission procedure [facility] Start: 08-27-2024 End: 08-27-2024 [facility] Start: 08-27-2024 Bacteria identified in Blood by Culture Blood Culture [facility] Start: 08-27-2024 Bacteria identified in Urine by Culture Urine Culture [facility] Start: 08-27-2024 Urine culture [facility] Start: 06-04-2024 [facility] Start: 07-30-2023 Verification routine [facility] Start: 07-30-2023 Legionella pneumophila Ag [Presence] in Urine [facility] Start: 07-30-2023 Respiratory pathogens DNA and RNA panel - Respiratory specimen by ANTIONE with probe detection [facility] Start: 07-30-2023 Streptococcus pneumoniae antigen assay [facility] Start: 07-30-2023 [facility] Start: 07-30-2023 Admission procedure [facility] Start: 07-30-2023 Hospital admission, emergency, from emergency room, medical nature [facility] Start: 07-30-2023 Gas panel - Venous blood [facility] Start: 07-30-2023 [facility] Start: 07-24-2023 [facility] Start: 03-17-2023 [facility] Start: 11-04-2022 Patient discharge [facility] Start: 11-03-2022 Consultation [facility] Start: 11-03-2022 Care planning and problem solving actions [facility] Start: 11-02-2022 Catheterization of vein [facility] Start: 11-02-2022 Referral to gastroenterology service [facility] Start: 11-01-2022 Following clinical pathway protocol [facility] Start: 11-01-2022 Assessment of risk of venous thromboembolism [facility] Start: 11-01-2022 Catheterization of vein [facility] Start: 11-01-2022 Insertion of catheter into peripheral vein [facility] Start: 11-01-2022 Measuring intake and output [facility] Start: 11-01-2022 Providing care according to standard [facility] Start: 11-01-2022 Provision of activity privileges [facility] Start: 11-01-2022 Referral to occupational therapist [facility] Start: 11-01-2022 Referral to service [facility] Start: 11-01-2022 Speech therapy assessment [facility] Start: 11-01-2022 Tobacco use cessation education [facility] Start: 11-01-2022 [facility] Start: 11-01-2022 Admission procedure [facility] Start: 11-01-2022 Referral to service [facility] Start: 11-01-2022 Inhalation therapy procedure [facility] Start: 11-01-2022 Patient referral to dietitian [facility] Start: 10-14-2022 Patient discharge [facility] Start: 10-14-2022 Urinary bladder residual urine study [facility] Start: 10-14-2022 Removal of urinary catheter [facility] Start: 10-14-2022 Removal of urinary catheter [facility] Start: 10-14-2022 Vitamin B12 measurement [facility] Start: 10-14-2022 Vitamin D, 25-hydroxy measurement [facility] Start: 10-13-2022 Following clinical pathway protocol [facility] Start: 10-13-2022 Ambulation without limitation [facility] Start: 10-13-2022 Assessment of risk of venous thromboembolism [facility] Start: 10-13-2022 Incentive spirometry [facility] Start: 10-13-2022 Insertion of catheter into peripheral vein [facility] Start: 10-13-2022 Measuring intake and output [facility] Start: 10-13-2022 Oxygen therapy [facility] Start: 10-13-2022 Providing care according to standard [facility] Start: 10-13-2022 Provision of activity privileges [facility] Start: 10-13-2022 Referral to occupational therapist [facility] Start: 10-13-2022 Referral to service [facility] Start: 10-13-2022 [facility] Start: 10-13-2022 Verification routine [facility] Start: 10-13-2022 Referral to general surgeon [facility] Start: 10-13-2022 Admission procedure [facility] Start: 10-13-2022 End: 10-13-2022 [facility] Start: 08-03-2022 Patient discharge [facility] Start: 08-02-2022 End: 08-03-2022 [facility] Start: 08-02-2022 Cardiac monitoring [facility] Start: 08-02-2022 Catheterization of vein [facility] Start: 08-02-2022 Continuous pulse oximetry [facility] Start: 08-02-2022 Elevation of head of bed [facility] Start: 08-02-2022 Exercises [facility] Start: 08-02-2022 Implementation of planned interventions [facility] Start: 08-02-2022 Notification of physician [facility] Start: 08-02-2022 Tobacco use cessation education [facility] Start: 08-01-2022 Catheterization of vein [facility] Start: 08-01-2022 Referral to gastroenterology service [facility] Start: 07-31-2022 Physiotherapy of chest [facility] Start: 07-30-2022 Chest 1 View (Portable) Chest 1 View (Portable) [facility] Start: 07-30-2022 XR Chest Single view [facility] Start: 07-29-2022 Speech therapy assessment [facility] Start: 07-29-2022 Introduction of urinary catheter [facility] Start: 07-29-2022 Urinary bladder residual urine study [facility] Start: 07-29-2022 Following clinical pathway protocol [facility] Start: 07-29-2022 Ambulation without limitation [facility] Start: 07-29-2022 Assessment of risk of venous thromboembolism [facility] Start: 07-29-2022 Catheterization of vein [facility] Start: 07-29-2022 Inhalation therapy procedure [facility] Start: 07-29-2022 Insertion of catheter into peripheral vein [facility] Start: 07-29-2022 Measuring intake and output [facility] Start: 07-29-2022 Oxygen therapy [facility] Start: 07-29-2022 Providing care according to standard [facility] Start: 07-29-2022 Referral to occupational therapist [facility] Start: 07-29-2022 Referral to service [facility] Start: 07-29-2022 Respiratory secretion precautions [facility] Start: 07-29-2022 Legionella pneumophila Ag [Presence] in Urine [facility] Start: 07-29-2022 Streptococcus pneumoniae antigen assay [facility] Start: 07-29-2022 Verification routine [facility] Start: 07-29-2022 Admission procedure [facility] Start: 07-29-2022 End: 07-29-2022 [facility] Start: 07-29-2022 Blood culture [facility] Start: 07-29-2022 End: 07-30-2022 [facility] Start: 07-29-2022 Patient referral to dietitian [facility] Start: 04-27-2022 Anes integ musc & nrv head neck&posterior trunk ANESTH HEAD/NECK/PTRUNK [facility] Start: 04-27-2022 Revj/rmvl implanted spinal neurostim generator REVISE/REMOVE NEURORECEIVER [facility] Start: 04-27-2022 Patient discharge [facility] Bacteria identified in Blood by Culture Blood Culture [facility] Influenza virus type s A and B and subtypes panel - Respiratory specimen [facility] Lactic acid measurement [facility] Legionella pneumophi la Ag [Presence] in Urine [facility] Magnesium [Mass/volu me] in Serum or Plasma [facility] Patient Education [facility] Work Phone: Patient referral [facility] Work Phone: Procalcitonin [Mass/ volume] in Serum or Plasma [facility] Vitamin B12 measurement [facility] Vitamin D, 25-hydrox y measurement [facility] Immunizations Immunization Date Immunization Notes Care Provider Fa [facility] 11-16-2023 influenza, injectabl e, quadrivalent, preservative free Dr. Harish Luis MD Work Phone: [facility] 06-27-2021 Covid (Moderna) Dr. Harish Luis Work Phone: [facility] 03-14-2021 Covid (Hansel & Hansel) Dr. Harish Luis Work Phone: [facility] 12-27-2020 influenza, injectabl e, quadrivalent, preservative free Dr. Harish Luis Work Phone: [facility] 12-27-2020 influenza, seasonal, injectable Dr. Harish Luis Work Phone: [facility] 05-27-2020 Covid (Hansel & Hansel) Dr. Harish Luis Work Phone: [facility] 01-20-[address] Harish Luis Work Phone: [facility] 12-29-2019 influenza, injectabl e, quadrivalent, preservative free Dr. Harish Luis Work Phone: [facility] 12-29-2019 influenza, seasonal, injectable Dr. Harish Luis Work Phone: [facility] 11-13-[address] Harish Luis Work Phone: [facility] 04-07-2019 influenza, injectabl e, quadrivalent, preservative free Dr. Harish Luis Work Phone: [facility] 04-07-2019 influenza, seasonal, injectable Dr. Harish Luis Work Phone: [facility] 12-17-2017 influenza, injectabl e, quadrivalent, preservative free Dr. Harish Luis Work Phone: [facility] 12-17-2017 influenza, seasonal, injectable Dr. Harish Luis Work Phone: [facility] 11-29-2016 influenza, injectabl e, quadrivalent, preservative free Dr. Harish Luis Work Phone: [facility] 11-29-2016 influenza, seasonal, injectable Dr. Harish Luis Work Phone: [facility] Payers Date Payer Category Payer Self-pay [id number] 2016 Medicare [id number] Unknown [id number] 2.16.8 [id number] Unknown [id number] 2.16.8 [id number] Unknown [id number] 2.16.8 [id number] Unknown [id number] 2.16.8 [id number] Unknown [id number] 2.16.8 [id number] Unknown [id number] 2.16.8 [id number] Unknown [id number] 2.16.8 [id number] Unknown [id number] 2.16.8 [id number] Unknown [id number] 2.16.8 [id number] Unknown [id number] 2.16.8 [id number] Unknown [id number] 2.16.8 [id number] Unknown [id number] 2.16.8 [id number] Unknown [id number] 2.16.8 [id number] Unknown [id number] 2.16.8 [id number] Unknown [id number] 2.16.8 [id number] Unknown [id number] 2.16.8 [id number] Unknown [id number] 2.16.8 [id number] Unknown [id number] 2.16.8 [id number] Unknown [id number] 2.16.8 [id number] Social History Date Type Detail Facility Start: 02-17-2020 End: 07-30-2023 Tobacco smoking status NHIS Unknown if ever smoked [facility] Start: 02-17-2020 None [facility] Start: 02-17-2020 Spouse/ Signif icant Other [facility] Start: 02-17-2020 Vapor [facility] Start: 1950 Sex Assigned At Female [facility] Start: 06-04-2024 End: 08-27-2024 Tobacco smoking status NHIS Smokes tobacco daily (finding) [facility] Start: 06-04-2024 Sex Female (finding) [facility] NEGATED: Highlighted row [facility] Medical Equipment Procedure Code Equipment Code Equipment [...] /State Functional Status Date Assessment Result Facility 08-29-2024 Functional status Ambulates [facility] Work Phone: 11-04-2022 Functional status Ambulates [facility] Work Phone: 10-14-2022 Functional status Ambulates [facility] Work Phone: 08-03-2022 Functional status Ambulates;Chair [facility] Work Phone: Mental Status Date Assessment Result Facility 08-29-2024 Cognitive function Voice/Name [facility] Work Phone: 08-27-2024 Cognitive function Voice/Name [facility] Work Phone: 07-30-2023 Cognitive function Awake;Lethargic [facility] Work Phone: 11-04-2022 Cognitive function Voice/Name [facility] Work Phone: 11-01-2022 Cognitive function Level Of Cons ciousness Awake;Follows Commands;Disoriented [facility] Work Phone: 10-13-2022 [facility]: 10-13-2022 Cognitive function Arousable To Voice/Nam e [facility] Work Phone: 10-13-2022 Cognitive function Level Of Cons ciousness Awake;Alert;Appropriate;Follow s Commands [facility] Work Phone: 08-03-2022 Cognitive function Appropriate;Cooperativ [facility] Work Phone: 08-03-2022 Cognitive function Voice/Name [facility] Work Phone: 04-27-2022 Cognitive function Voice/Name [facility] Work Phone: Clinical Notes 10-13-2022 to 08-29-2024 Note Date & Type Note Facility 08-29-2024 Discharge summary [facility] 08-29-2024 Note [facility] Medical Records Department [address] [place] [address] Discharge Summary 08/29/24 1250 MR#: [id number] Acct: [id number] Name: CAROL ZARAGOZA Rep #: [id number] : 1950 74 From: Christofer Espino DO PCP: Dr. Harish Luis MD Status:DIS IN Location: [facility] [id number] Providers Date of Admission: 08/27/24 Date of Discharge: 08/29/24 Primary Care Physician: Dr. Harish Luis MD Consultations 08/28/24 12:58 Consult: Gastroenterology Routine Consulting Provider: [facility] Reason for Consult: dysphagia, eval for EGD EMERGENT Consult: No MD Notified: Yes Date Notified: 08/28/24 Time Notified: 16:06 Method of Notification: Text Reason For Visit: CAP W/ENCEPHALOPATHY Diagnosis Discharge Diagnosis (1) Encephalopathy due to infection: Status: Acute Code(s): G93.49 - Other encephalopathy; B99.9 - Unspecified infectious disease (2) Aspiration pneumonia: Status: Acute Code(s): J69.0 - Pneumonitis due to inhalation of food and vomit Medications at Discharge Home Medications buspirone 7.5 mg tablet 7.5 mg PO BID ANXIETY 02/17/20 clonazepam 1 mg tablet 1 mg PO TID ANXIETY 02/17/20 doxepin 150 mg capsule 150 mg PO QHS ANXIETY 07/30/23 omeprazole 20 mg capsule,delayed release 20 mg PO DAILY GERD 07/30/23 doxycycline hyclate 100 mg tablet 100 mg PO BID 5 days #10 tabs 08/29/24 Hospital Course Operations None Procedures EKG and - (Chest x-ray) Summary of Care Provided Minutes Spent on Discharge: 35 Hospital Course: Patient is a 74-year-old female who presented [facility] ED on 08/27/2024 with fevers, cough and confusion. Hospital course as noted below. Patient discharged home in stable condition on 08/29. . Suspected aspiration pneumonia ??? Speech therapy followed. Met SIRS criteria on admission with fevers, tachycardia and tachypnea. Did have metabolic encephalopathy as noted below as well suspected secondary to infection. However, did not meet sepsis criteria given normal lactate, no hypotension, no DEE or other endorgan dysfunction. Chest x-ray on admit suspicious for aspiration pneumonia. Known history of oropharyngeal dysphagia as noted below. Treated with IV ceftriaxone and azithromycin while inpatient with good improvement. Speech therapy recommended pur???ed textures with thin liquid diet. GI evaluation was also recommended for consideration of EGD given history of esophageal dysphagia as noted below. However, patient was adamantly opposed to having any procedures done at this time. Patient was stable for discharge home on 08/29 and prescribed 5 more days of antibiotics to complete 7-day course total. 2. Acute metabolic encephalopathy, improved; concern for cognitive impairment ??? Alert and oriented x [address] but not time on admit and had poor insight into medical condition. Improved on hospital day 2, alert and oriented x 3 and more calm on exam. However, on day of discharge patient was difficult and refusing to have any further procedures done and stating she wanted to go home. She did have decision-making capacity. However, on further discussion with her she has been more forgetful at home at times and I suspect there may be some degree of underlying cognitive impairment. Unfortunately patient has refused any further testing for cognitive impairment. Recommended to that he monitor her closely especially with feeding and would have her see geriatric medicine for further evaluation if able. 3. Chronic oropharyngeal and esophageal dysphagia ??? Speech therapy followed as above. Presented in December 2023 for with concern for aspiration pneumonitis and had barium swallow study done that showed mild to moderate oropharyngeal dysphagia and concern for esophageal dysphagia. Notably had an EGD with Dr. Zarate in 10/2022 that showed a tortuous esophagus, abnormal esophageal motility suspicious for presbyesophagus that was injected with botulinum toxin, and mild Schatzki ring that was dilated. Did not have a repeat EGD done during the recent December admission. As noted above, okay for pur???ed textures with thin liquid diet on discharge and unfortunately patient refused further GI evaluation during this hospitalization; could be considered in the future if patient reconsiders. 4. Concern for malnutrition ??? Nutrition followed. BMI 19 on admit with suspected poor p.o. intake in setting of dysphagia as above. Per nutrition, did not meet criteria for malnutrition. However given her low BMI, Ensure plus high-protein was added to meals and recommend high-protein intake on discharge. 5. Anxiety/depression ??? Continue home BuSpar, clonazepam 3 times daily as needed and doxepin at night. 6. GERD ??? Continue home PPI. Total clinical time spent by myself addressing the patient's medical is (more content not included)... [facility] 08-28-2024 Progress note Note Date/Time August 28, 2024 1:06pm [facility] Medical Records Department [address] [place] [address] Progress Note - Hospitalist 08/28/24 1113 MR#: [id number] Acct: [id number] Name: CAROL ZARAGOZA Rep #:[id number] : 1950 74 From: Christofer ashby DO PCP: Dr. Harish Luis MD Status:ADM I N Location: [place] [address] Reason for Visit Reason for Visit: Diagnoses Unspecified infectious disease (08/27/24) Other encephalopathy (08/27/24) Pneumonitis due to inhalation of food and vomit (08/27/24) Subjective Subjective Saw patient at bedside this morning, present. Patient was more alert today and was oriented x 3. She was more calm appearing and less anxious. She was breathing comfortably on room air at rest. Denied any fevers or chills. Noted that she still did not feel hungry but was feeling somewhat thirsty. No other new concerns today. Objective Data Objective Data Vital Signs: Vital Signs Temp Pulse Resp BP Pulse Ox O2 Del Method 97.5 F L 78 18 103/62 93 Room Air 08/28/24 09:45 08/28/24 10:09 08/28/24 09:45 08/28/24 10:09 08/28/24 09:45 08/28/24 09:45 Oxygen Delivery Method Room Air Weight: 48.988 kg Body Mass Index (BMI) 19.7 Intake & Output: Intake and Output for Last 24 Hours 08/26/24 08/27/24 08/28/24 23:59 23:59 23:59 Intake Total 2305 / 2605 600 / 600 Output Total 600 / 1000 400 / 400 Balance 1705 / 1605 200 / 200 Lab / Micro Data 08/28/24 05:05 08/28/24 05:05 Labs: Laboratory Results - last 24 hr 08/27/24 16:00: WBC 6.5, RBC 3.82 L, Hgb 12.1, Hct 36.2 L, MCV 94.8, MCH 31.7, MCHC 33.4, RDW Std Deviation 46.5 H, RDW Coeff of Mehnaz 13.2, Plt Count 332, MPV 9.6, Immature Gran % (Auto) 0.300, Neut % (Auto) 86.9 H, Lymph % (Auto) 7.0 L, Avery % (Auto) 5.1, Eos % (Auto) 0.2, Baso % (Auto) 0.5, Absolute Neuts (auto) 5.6, Absolute Lymphs (auto) 0.45 L, Nucleated RBC % 0, PT 13.4, INR 1.0, APTT 36.4 H, Sodium 136, Potassium 4.3, Chloride 102, Carbon Dioxide 22.4, Anion Gap 11, BUN 13, Creatinine 1.08, Estim Creat Clear Calc 35.35 L, Est GFR (MDRD) Non-Af 54 L, BUN/Creatinine Ratio 12.2, Glucose 91, Lactic Acid 1.1, Calcium 8.4, Total Bilirubin 0.24, AST 53 H, ALT 19, Alkaline Phosphatase 97, Total Protein 6.6, Albumin 3.3 L, Globulin 3.3, Albumin/Globulin Ratio 1.0 08/27/24 16:15: Urine Color Yellow, Urine Clarity Sl Cldy, Urine pH 6.0, Ur Specific Handley 1.015, Urine Protein 30 H, Urine Glucose (UA) Normal, Urine Ketones Negative, Urine Occult Blood Negative, Urine Nitrite Negative, Urine Bilirubin Negative, Urine Urobilinogen Normal, Ur Leukocyte Esterase Negative, Urine RBC 0-5 SEEN, Urine WBC 5-10 SEEN, Ur Squamous Epith Cells 0-5 SEEN, UrineBacteria RARE, Urine Mucus 0 SEEN, Urine Yeast 2+ 08/28/24 05:05: WBC 4.8, RBC 3.06 L, Hgb 9.7 L, Hct 29.4 L, MCV 96.1, MCH 31.7, MCHC 33.0, RDW Std Deviation 47.2 H, RDW Coeff of Mehnaz 13.4, Plt Count 278, MPV 9.8, Sodium 140, Potassium 3.3, Chloride 109 H, Carbon Dioxide 20.4 L, Anion Gap11, BUN 9, Creatinine 0.78, Estim Creat Clear Calc 47.71 L, Est GFR (MDRD) Non-Af 79, BUN/Creatinine Ratio 11.6, Glucose 70, Calcium 7.7 08/28/24 05:24: Phosphorus 2.7, Magnesium 1.9 Micro: Microbiology 08/27/24 16:15 Urine, Clean Catch Legionella Antigen - Final 08/27/24 16:15 Urine, Clean Catch Streptococcus pneumoniae Antigen (M - Final Radiography Diagnostic Testing: Radiology Impression Chest X-Ray 08/27/24 15:55 IMPRESSION: Mildly increased patchy opacity within the left lower lobe and mildly decreased patchy opacity within the right lower lobe. Otherwise grossly unchanged Reading Location: [facility] Physical Exam Const alert and no apparent distress Constitutional Narrative: Elderly female, thin and chronically ill-appearing, now alert and oriented x 3 and more calm appearing, answering questions appropriately, sitting back comfortably in bed and in no acute distress. Improving. General Appearance: cooperative and comfortable HEENT normocephalic, head/scalp atraumatic, hearing grossly normal bilaterally, nasal mucous membranes and turbinates normal and moist oral mucous membranes Eyes PERRL, EOMs intact bilaterally and conjunctivae normal Neck full ROM Chest inspection of chest normal Resp normal respiratory effort and no use of accessory muscles Resp Narrative: Breathing comfortably on room air at rest. Decreased breath sounds at bilaterallung bases with crackles noted. No wheezing noted. Stable. Cardio regular rate, regular rhythm, no murmurs and peripheral pulses 2+ throughout GI normal to inspection, nondistended, normoactive bowel sounds, soft to palpation,non-tender and non-distended Back/Spine normal ROM Extremity normal to inspection, full ROM and no pedal edema Skin no rashes or lesions noted Neuro moves all extremities and no focal motor deficits Motor Exam: strength 5/5 throughout Psych mental status grossly normal Assessment & Plan Assessment/Plan (1) Encephalopathy due to infection: (2) Aspiration pneumonia: PLAN: Plan Patient is a 74-year-old female who presented [facility] ED on 08/27/2024 with fevers, cough and confusion. 1. Suspected aspiration pneumonia ? Speech therapy following. Met SIRS criteria on admission with fevers, tachycardia and tachypnea. Did have metabolic encephalopathy as noted below as well suspected secondary to infection. However, did not meet sepsis criteria given normal lactate, no hypotension, no DEE or other endorgan dysfunction. Chest x-ray on admit suspicious for aspiration pneumonia. Known history of oropharyngeal dysphagia as noted below. Continue treatment with IV ceftriaxone and azithromycin. Per speech therapy, okay for pur?ed textures with thin liquiddiet but recommendation is for repeat MBSS as well as GI evaluation for consideration of EGD. He GI consult placed and will keep n.p.o. at midnight forlikely EGD tomorrow. 2. Acute metabolic encephalopathy, improving ? Alert and oriented x [address] but not time on admit and had poor insight into medical condition. Much improved on hospital day 2, now alert and oriented x 3 and more calm on exam with better insight into medical condition. Okay to continue home medications as below. Continue to monitor. 3. Chronic oropharyngeal and esophageal dysphagia ? Speech therapy following as above. Presented in December 2023 for with concernfor aspiration pneumonitis and had barium swallow study done that showed mild tomoderate oropharyngeal dysphagia and concern for esophageal dysphagia. Notably had an EGD with Dr. Zarate in 10/2022 that showed a tortuous esophagus, abnormal esophageal motility suspicious for presbyesophagus that was injected with botulinum toxin, and mild Schatzki ring that was dilated. Did not have a repeatEGD done during the recent December admission. Speech therapy following as aboveand GI consulted for consideration of repeat EGD. 4. Suspected malnutrition ? Nutrition following. BMI 19 on admit with suspected poor p.o. intake in setting of dysphagia as above. Advanced to pur?ed textures with thin liquid diet on 08/28 as above. Appreciate further nutrition recommendations. 5. Anxiety/depression ? Continue home BuSpar, clonazepam 3 times daily as needed and doxepin at night. 6. GERD ? Continue home PPI. DVT prophylaxis: Lovenox CODE STATUS: Full code, unverified Expected disposition: TBD Total clinical time spent by myself addressing the patient's medical issues, reviewing all the data, and collaborating with patient's care team: 35 minutes. Charges/Coding Visit Charges Inpatient E&M: 89697 Subs Hosp L2 08/28/24 1309 <Electronically signed by Christofer Espino DO> Cosigner Signature (if applicable): CC: ~ Signed [facility] Work Phone: 1(737) 854-349006-12-2025 Progress note [facility] Medical Records Department [address] [place] [address] Progress Note - Hospitalist 08/28/24 1113 MR#: [id number] Acct: [id number] Name: CAROL ZARAGOZA Rep #:[id number] : 1950 74 From: Christofer ashby DO PCP: Dr. Harish Luis MD Status:ADM I N Location: [place] [address] Reason for Visit Reason for Visit: Diagnoses Unspecified infectious disease (08/27/24) Other encephalopathy (08/27/24) Pneumonitis due to inhalation of food and vomit (08/27/24) Subjective Subjective Saw patient at bedside this morning, present. Patient was more alert today and was orientedx 3. She was more calm appearing and less anxious. She was breathing comfortably on room air at rest. Denied any fevers or chills. Noted that she still did not feel hungry but was feeling somewhat thirsty. No other new concerns today. Objective Data Objective Data Vital Signs: Vital Signs Temp Pulse Resp BP Pulse Ox O2 Del Method 97.5 F L 78 18 103/62 93 Room Air 08/28/24 09:45 08/28/24 10:09 08/28/24 09:45 08/28/24 10:09 08/28/24 09:45 08/28/24 09:45 Oxygen Delivery Method Room Air Weight: 48.988 kg Body Mass Index (BMI) 19.7 Intake & Output: Intake and Output for Last 24 Hours 08/26/24 08/27/24 08/28/24 23:59 23:59 23:59 Intake Total 2305 / 2605 600 / 600 Output Total 600 / 1000 400 / 400 Balance 1705 / 1605 200 / 200 Lab / Micro Data 08/28/24 05:05 08/28/24 05:05 Labs: Laboratory Results - last 24 hr 08/27/24 16:00: WBC 6.5, RBC 3.82 L, Hgb 12.1, Hct 36.2 L, MCV 94.8, MCH 31.7, MCHC 33.4, RDW Std Deviation 46.5 H, RDW Coeff of Mehnaz 13.2, Plt Count 332, MPV 9.6, Immature Gran % (Auto) 0.300, Neut %(Auto) 86.9 H, Lymph % (Auto) 7.0 L, Avery % (Auto) 5.1, Eos % (Auto) 0.2, Baso % (Auto) 0.5, Absolute Neuts (auto) 5.6, Absolute Lymphs (auto) 0.45 L, Nucleated RBC % 0, PT 13.4, INR 1.0, APTT 36.4 H, Sodium 136, Potassium 4.3, Chloride 102, Carbon Dioxide 22.4, Anion Gap 11, BUN 13, Creatinine 1.08, Estim Creat Clear Calc 35.35 L, Est GFR (MDRD) Non- Af 54 L, BUN/Creatinine Ratio 12.2, Glucose 91, Lactic Acid 1.1, Calcium 8.4, Total Bilirubin 0.24, AST 53 H, ALT 19, Alkaline Phosphatase 97, Total Protein 6.6, Albumin 3.3 L, Globulin 3.3, Albumin/Globulin Ratio 1.0 08/27/24 16:15: Urine Color Yellow, Urine Clarity Sl Cldy, Urine pH 6.0, Ur Specific Handley 1.015,Urine Protein 30 H, Urine Glucose (UA) Normal, Urine Ketones Negative, Urine Occult Blood Negative,Urine Nitrite Negative, Urine Bilirubin Negative, Urine Urobilinogen Normal, Ur Leukocyte Esterase Negative, Urine RBC 0-5 SEEN, Urine WBC 5-10 SEEN, Ur Squamous Epith Cells 0-5 SEEN, UrineBacteria RARE, Urine Mucus 0 SEEN, Urine Yeast 2+ 08/28/24 05:05: WBC 4.8, RBC 3.06 L, Hgb 9.7 L, Hct 29.4 L, MCV 96.1, MCH 31.7, MCHC 33.0, RDW Std Deviation 47.2 H, RDW Coeff of Mehnaz 13.4, Plt Count 278, MPV 9.8, Sodium 140, Potassium 3.3, [id number] H, Carbon Dioxide 20.4 L, Anion Gap11, BUN 9, Creatinine 0.78, Estim Creat Clear Calc 47.71 L, Est GFR (MDRD) Non-Af 79, BUN/Creatinine Ratio 11.6, Glucose 70, Calcium 7.7 08/28/24 05:24: Phosphorus 2.7, Magnesium 1.9 Micro: Microbiology 08/27/24 16:15 Urine, Clean Catch Legionella Antigen - Final 08/27/24 16:15 Urine, Clean Catch Streptococcus pneumoniae Antigen (M - Final Radiography Diagnostic Testing: Radiology Impression Chest X-Ray 08/27/24 15:55 IMPRESSION: Mildly increased patchy opacity within the left lower lobe and mildly decreased patchy opacity within the right lower lobe. Otherwise grossly unchanged Reading Location: [facility] Physical Exam Const alert and no apparent distress Constitutional Narrative: Elderly female, thin and chronically ill-appearing, now alert and oriented x 3 and more calm appearing, answering questions appropriately, sitting back comfortably in bed and in no acute distress. Improving. General Appearance: cooperative and comfortable HEENT normocephalic, head/scalp atraumatic, hearing grossly normal bilaterally, nasal mucous membranes and turbinates normal and moist oral mucous membranes Eyes PERRL, EOMs intact bilaterally and conjunctivae normal Neck full ROM Chest inspection of chest normal Resp normal respiratory effort and no use of accessory muscles Resp Narrative: Breathing comfortably on room air at rest. Decreased breath sounds at bilaterallung bases with crackles noted. No wheezing noted. Stable. Cardio regular rate, regular rhythm, no murmurs and peripheral pulses 2+ throughout GI normal to inspection, nondistended, normoactive bowel sounds, soft to palpation,non-tender and non-distended Back/Spine normal ROM Extremity normal to inspection, full ROM and no pedal edema Skin no rashes or lesions noted Neuro moves all extremities and no focal motor deficits Motor Exam: strength 5/5 throughout Psych mental status grossly normal Assessment & Plan Assessment/Plan (1) Encephalopathy due to infection: (2) Aspiration pneumonia: PLAN: Plan Patient is a 74-year-old female who presented [facility] ED on 08/27/2024 with fevers, cough and confusion. 1. Suspected aspiration pneumonia ? Speech therapy following. Met SIRS criteria on admission with fevers, tachycardia and tachypnea. Did have metabolic encephalopathy as noted below as well suspected secondary to infection. However, did not meet sepsis criteria given normal lactate, no hypotension, no DEE or other endorgan dysfunction. Chest x-ray on admit suspicious for aspiration pneumonia. Known history of oropharyngeal dysphagia as noted below. Continue treatment with IV ceftriaxone and azithromycin. Per speech therapy, okay for pur?ed textures with thin liquiddiet but recommendation is for repeat MBSS as well as GI evaluation for consideration of EGD. He GI consult placed and will keep n.p.o. at midnight forlikely EGD tomorrow. 2. Acute metabolic encephalopathy, improving ? Alert and oriented x [address] but not time on admit and had poor insight into medical condition. Much improved on hospital day 2, now alert and oriented x 3 and more calm on exam with better insight into medical condition. Okay to continue home medications as below. Continue to monitor. 3. Chronic oropharyngeal and esophageal dysphagia ? Speech therapy following as above. Presented in December 2023 for with concernfor aspiration pneumonitis and had barium swallow study done that showed mild tomoderate oropharyngeal dysphagia and concern for esophageal dysphagia. Notably had an EGD with Dr. Zarate in 10/2022 that showed a tortuous esophagus, abnormal esophageal motility suspicious for presbyesophagus that was injected with botulinum toxin, and mild Schatzki ring that was dilated. Did not have a repeatEGD done during the recent December admission. Speech therapy following as aboveand GI consulted for consideration of repeat EGD. 4. Suspected malnutrition ? Nutrition following. BMI 19 on admit with suspected poor p.o. intake in setting of dysphagia as above. Advanced to pur?ed textures with thin liquid diet on 08/28 as above. Appreciate further nutrition recommendations. 5. Anxiety/depression ? Continue home BuSpar, clonazepam 3 times daily as needed and doxepin at night. 6. GERD ? Continue home PPI. DVT prophylaxis: Lovenox CODE STATUS: Full code, unverified Expected disposition: TBD Total clinical time spent by myself addressing the patient's medical issues, reviewing all the data, and collaborating with patient's care team: 35 minutes. Charges/Coding Visit Charges Inpatient E&M: 09663 Subs Hosp L2 08/28/24 1306 Cosigner Signature (if applicable): CC: ~ Signed [facility]06-12-2025 History and physical note Author Christofer Espino [facility] Note Date/Time August 28, 2024 7:53 am [facility] Medical Records Department [address] [place] [address] H&P Exam - Hospitalist 08/27/24 1712 MR#: [id number] Acct: [id number] Name: CAROL ZARAGOZA Rep #:[id number] : 1950 74 From: Christofer ashby DO PCP: Dr. Harish Luis MD Status:ADM I N Location: [facility] [id number] HPI - General General Date of Admission: 08/27/24 Date of Service: 08/27/24 Chief Complaint: Fever and cough with confusion HPI Narrative CAROL ZARAGOZA, is a 74 F who presented to [facility] ED on 08/27/2024 with fevers, cough and confusion. Patient lives at home with her . He noticed that she was having fevers with a moist nonproductive coughover the past few days and steadily became more confused. She was hospitalized here back in December for a somewhat similar presentation. Was found to have an aspiration pneumonitis at that time. Noted to have some degree of chronic oropharyngeal dysphagia. Modified barium swallow study was done then that showed mild to moderate oropharyngeal dysphagia and concern for esophageal dysphagia. However, patient improved quickly then and was able to be dischargedhom hospital day 2 without GI evaluation. On arrival to the ED patient was febrile to 103.2F and tachycardic to the 110s. Her respiratory rate was increased in the high 20s to low 30s but she was satting in the low to mid 90s on room air. Chest x-ray showed mild increased patchy opacities in both the right and left lower lobes concerning for pneumonia. She was started on IV antibiotics and hospitalist was contacted for admission. I saw the patient at bedside in the ED, was present. Patient was alert and making appropriate eye contact. She was able to tell me that she was at [facility] and that the year was 2024. She did not know the month. Shewas insisting to me that she wanted to go home and take care of the infection athome, but she had very poor insight into her current medical condition. Her at bedside noted that she was not at her baseline and had been very confused over the past few days. It was determined that she lacked medical capacity for decision-making. She did report a wet cough and has been noted that she has had issues with choking in the past. Will be admitted for further management. [facility] Medical History (Updated 08/28/24 @ 07:[address] Christofer Espino DO) Aspiration pneumonia Hypoxia Fracture of humeral head [place] Pulmonary emboli Hypoxia Closed head injury Anxiety and depression Cervical [...] 150 mg PO QHS ANXIETY Unknown History omeprazole 20 mg capsule,delayed 20 mg PO DAILY GERD 0 07/30/23 Unknown History release Allergy/AdvReac Type Severity Reaction Status Date / [...] history: Currently ambulating with a cane ROS Constitutional Constitutional: Reports chills, fatigue, fever(s) and weakness Eyes Eyes: Denies change in vision Cardiovascular Cardiovascular: Denies chest pain Respiratory/Chest Respiratory/Chest: Reports cough, productive cough and shortness of breath at rest Gastrointestinal Gastrointestinal: Denies abdominal pain Genitourinary Genitourinary: Denies dysuria Musculoskeletal Musculoskeletal: Denies arthralgias or myalgias Vital Signs Vital Signs Vital Signs: 08/27/24 15:36 08/27/24 15:43 08/27/24 [...] Oxygen Delivery Method 08/27/24 16:43 08/27/24 16:45 Temperature 102.1 F H Temperature Source Oral Pulse Rate 108 H 112 H Respiratory Rate 22 H 30 H Blood Pressure 186/86 H 186/86 H Blood Pressure Mean 119 111 Pulse Ox 92 Oxygen Delivery Method Room Air Weight Weight: 49 kg Body Mass Index (BMI) 19.8 Physical Exam Const alert and no apparent distress Constitutional Narrative: Elderly female, thin and chronically ill-appearing, alert and oriented to personand place but not time, answering some questions with appropriate responses but with poor insight into her medical condition, otherwise sitting back in bed fairly comfortably and in no acute distress. General Appearance: cooperative and comfortable HEENT normocephalic, head/scalp atraumatic, hearing grossly normal bilaterally, nasal mucous membranes and turbinates normal and moist oral mucous membranes Eyes PERRL, EOMs intact bilaterally and conjunctivae normal Neck full ROM Chest inspection of chest normal Resp normal respiratory effort and no use of accessory muscles Resp Narrative: Breathing comfortably on room air at rest. Decreased breath sounds at bilaterallung bases with crackles noted. No wheezing noted. Cardio no murmurs and peripheral pulses 2+ throughout Cardio Narrative: Tachycardic, regular rhythm. GI normal to inspection, nondistended, normoactive bowel sounds, soft to palpation,non-tender and non-distended Back/Spine normal ROM Extremity normal to inspection, full ROM and no pedal edema Skin no rashes or lesions noted Neuro moves all extremities and no focal motor deficits Motor Exam: strength 5/5 throughout Results Lab / Micro Data 08/28/24 05:05 08/28/24 05:05 Labs: Laboratory Results - last 24 hr 08/27/24 16:00: WBC 6.5, RBC 3.82 L, Hgb 12.1, Hct 36.2 L, MCV 94.8, MCH 31.7, MCHC 33.4, RDW Std Deviation 46.5 H, RDW Coeff of Mehnaz 13.2, Plt Count 332, MPV 9.6, Immature Gran % (Auto) 0.300, Neut % (Auto) 86.9 H, Lymph % (Auto) 7.0 L, Avery % (Auto) 5.1, Eos % (Auto) 0.2, Baso % (Auto) 0.5, Absolute Neuts (auto) 5.6, Absolute Lymphs (auto) 0.45 L, Nucleated RBC % 0, Sodium 136, Potassium 4.3, Chloride 102, Carbon Dioxide 22.4, Anion Gap 11, BUN 13, Creatinine 1.08, Estim Creat Clear Calc 35.35 L, Est GFR (MDRD) Non-Af 54 L, BUN/Creatinine Ratio 12.2, Glucose 91, Lactic Acid 1.1, Calcium 8.4, Total Bilirubin 0.24, AST 53 H, ALT 19, Alkaline Phosphatase 97, Total Protein 6.6, Albumin 3.3 L, Globulin 3.3,Albumin/Globulin Ratio 1.0 08/27/24 16:15: Urine Color Yellow, Urine Clarity Sl Cldy, Urine pH 6.0, Ur Specific Handley 1.015, Urine Protein 30 H, Urine Glucose (UA) Normal, Urine Ketones Negative, Urine Occult Blood Negative, Urine Nitrite Negative, Urine Bilirubin Negative, Urine Urobilinogen Normal, Ur Leukocyte Esterase Negative Assessment & Plan Assessment/Plan (1) Encephalopathy due to infection: (2) Aspiration pneumonia: PLAN: Plan Patient is a 74-year-old female who presented [facility] ED on 08/27/2024 with fevers, cough and confusion. 1. Suspected aspiration pneumonia ? Admit under inpatient status to PCU. Met SIRS criteria on admission with fevers, tachycardia and tachypnea. Did have metabolic encephalopathy as noted below as well suspected secondary to infection. However, did not meet sepsis criteria given normal lactate, no hypotension, no DEE or other endorgan dysfunction. Chest x-ray on admit suspicious for aspiration pneumonia. Known history of oropharyngeal dysphagia as noted below. Will treat with IV ceftriaxone and azithromycin for now. Will keep n.p.o. and speech therapy consulted for further evaluation. Infectious workup pending. 2. Acute metabolic encephalopathy ? Alert and oriented x [address] but not time and poor insight into medical condition on admission. Suspected secondary to infection as above. Treatment as above. Notably is on several medications for anxiety/depression asnoted below; okay to continue these medications but would avoid other sedating medications as able. 3. Chronic oropharyngeal dysphagia ? Speech therapy consulted as above. Had barium swallow study done back in December 2023 that showed mild to moderate oropharyngeal dysphagia and concern for esophageal dysphagia. Patient presented with aspiration pneumonitis at thattime. However she improved quickly and was discharged home on hospital day 2 without GI evaluation. Appreciate speech therapy recommendations. 4. Suspected malnutrition ? Nutrition consulted. BMI 19 on admit with suspected poor p.o. intake in setting of dysphagia as above. Appreciate nutrition recommendations. 5. Anxiety/depression ? Continue home BuSpar, clonazepam 3 times daily as needed and doxepin at night. 6. GERD ? Continue home PPI. DVT prophylaxis: Lovenox CODE STATUS: Full code, unverified Expected disposition: TBD Total clinical time spent by myself addressing the patient's medical issues, reviewing all the data, and collaborating with patient's care team: 75 minutes. Charges/Coding Visit Charges Inpatient E&M: 57124 Init Hosp L3 08/28/24 0753 <Electronically signed by Christofer Espino DO> Cosigner Signature (if applicable): CC: Dr. Christofer Espino DO; Dr. Harish Luis MD~ Signed [facility] Work Phone: 1(886) 388-351406-12-2025 History and physical note [facility] Medical Records Department [address] [place] [id number] H&P Exam - Hospitalist 08/27/24 1712 MR#: [id number] Acct: [id number] Name: CAROL ZARAGOZA Rep #:[id number] : 1950 74 From: Christofer ashby DO PCP: Dr. Harish Luis MD Status:ADM I N Location: [place] [id number] HPI - General General Date of Admission: 08/27/24 Date of Service: 08/27/24 Chief Complaint: Fever and cough with confusion HPI Narrative CAROL ZARAGOZA, is a 74 F who presented to [facility] ED on 08/27/2024 with fevers, cough and confusion. Patient lives at home with her . He noticed that she was having fevers with a moist nonproductive coughover the past few days and steadily became more confused. She was hospi talized here back in December for a somewhat similar presentation. Was found to have an aspiration pneumonitis at that time. Noted to have some degree of chronic oropharyngeal dysphagia. Modified barium swallow study was done then that showed mild to moderate oropharyngeal dysphagia and concern for esophageal dysphagia. However, patient improved quickly then and was able to be [facility] day 2 without GI evaluation. On arrival to the ED patient was febrile to 103.2F and tachycardic to the 110s. Her respiratory rate was increased in the high 20s to low 30s but she was satting in the low to mid 90s on room air. Chest x-ray showed mild increased patchy opacities in both the right and left lower lobes concerning for pneumonia. She was started on IV antibiotics and hospitalist was contacted for admission. I saw the patient at bedside in the ED, was present. Patient was alert and making appropriate eye contact. She was able to tell me that she was at [facility] and that the year was 2024. She did not know the month. Shewas insisting to me that she wanted to go home and take care of the infection athome, but she had very poor insight into her current medical condition. Her at bedside noted that she was not at her baseline and had been very confused over the past few days. It was determined that she lacked medical capacity for decision-making . She did report a wet cough and has been noted that she has had issues with choking in the past. Will be admitted for further management. [facility] Medical History (Updated 08/28/24 @ 07:[address] Christofer Espino, DO) Aspiration pneumonia Hypoxia Fracture of humeral head [place] Pulmonary emboli Hypoxia Closed head injury Anxiety and depression Cervical [...] 150 mg PO QHS ANXIETY Unknown History omeprazole 20 mg capsule,delayed 20 mg PO DAILY GERD 0 07/30/23 Unknown History release Allergy/AdvReac Type Severity Reaction Status Date / [...] history: Currently ambulating with a cane ROS Constitutional Constitutional: Reports chills, fatigue, fever(s) and weakness Eyes Eyes: Denies change in vision Cardiovascular Cardiovascular: Denies chest pain Respiratory/Chest Respiratory/Chest: Reports cough, productive cough and shortness of breath at rest Gastrointestinal Gastrointestinal: Denies abdominal pain Genitourinary Genitourinary: Denies dysuria Musculoskeletal Musculoskeletal: Denies arthralgias or myalgias Vital Signs Vital Signs Vital Signs: 08/27/24 15:36 08/27/24 15:43 08/27/24 [...] Oxygen Delivery Method 08/27/24 16:43 08/27/24 16:45 Temperature 102.1 F H Temperature Source Oral Pulse Rate 108 H 112 H Respiratory Rate 22 H 30 H Blood Pressure 186/86 H 186/86 H Blood Pressure Mean 119 111 Pulse Ox 92 Oxygen Delivery Method Room Air Weight Weight: 49 kg Body Mass Index (BMI) 19.8 Physical Exam Const alert and no apparent distress Constitutional Narrative: Elderly female, thin and chronically ill-appearing, alert and oriented to personand place but not time, answering some questions with appropriate responses but with poor insight into her medical condition, otherwise sitting back in bed fairly comfortably and in no acute distress. General Appearance: cooperative and comfortable HEENT normocephalic, head/scalp atraumatic, hearing grossly normal bilaterally, nasal mucous membranes and turbinates normal and moist oral mucous membranes Eyes PERRL, EOMs intact bilaterally and conjunctivae normal Neck full ROM Chest inspection of chest normal Resp normal respiratory effort and no use of accessory muscles Resp Narrative: Breathing comfortably on room air at rest. Decreased breath sounds at bilaterallung bases with crackles noted. No wheezing noted. Cardio no murmurs and peripheral pulses 2+ throughout Cardio Narrative: Tachycardic, regular rhythm. GI normal to inspection, nondistended, normoactive bowel sounds, soft to palpation,non-tender and non-distended Back/Spine normal ROM Extremity normal to inspection, full ROM and no pedal edema Skin no rashes or lesions noted Neuro moves all extremities and no focal motor deficits Motor Exam: strength 5/5 throughout Results Lab / Micro Data 08/28/24 05:05 08/28/24 05:05 Labs: Laboratory Results - last 24 hr 08/27/24 16:00: WBC 6.5, RBC 3.82 L, Hgb 12.1, Hct 36.2 L, MCV 94.8, MCH 31.7, MCHC 33.4, RDW Std Deviation 46.5 H, RDW Coeff of Mehnaz 13.2, Plt Count 332, MPV 9.6, Immature Gran % (Auto) 0.300, Neut %(Auto) 86.9 H, Lymph % (Auto) 7.0 L, Avery % (Auto) 5.1, Eos % (Auto) 0.2, Baso % (Auto) 0.5, Absolute Neuts (auto) 5.6, Absolute Lymphs (auto) 0.45 L, Nucleated RBC % 0, Sodium 136, Potassium 4.3, Chloride 102, Carbon Dioxide 22.4, Anion Gap 11, BUN 13, Creatinine 1.08, Estim Creat Clear Calc 35.35L, Est GFR (MDRD) Non-Af 54 L, BUN/Creatinine Ratio 12.2, Glucose 91, Lactic Acid 1.1, Calcium 8.4,Total Bilirubin 0.24, AST 53 H, ALT 19, Alkaline Phosphatase 97, Total Protein 6.6, Albumin 3.3 L, Globulin 3.3,Albumin/Globulin Ratio 1.0 08/27/24 16:15: Urine Color Yellow, Urine Clarity Sl Cldy, Urine pH 6.0, Ur Specific Handley 1.015,Urine Protein 30 H, Urine Glucose (UA) Normal, Urine Ketones Negative, Urine Occult Blood Negative,Urine Nitrite Negative, Urine Bilirubin Negative, Urine Urobilinogen Normal, Ur Leukocyte Esterase Negative Assessment & Plan Assessment/Plan (1) Encephalopathy due to infection: (2) Aspiration pneumonia: PLAN: Plan Patient is a 74-year-old female who presented [facility] ED on 08/27/2024 with fevers, cough and confusion. 1. Suspected aspiration pneumonia ? Admit under inpatient status to PCU. Met SIRS criteria on admission with fevers, tachycardia and tachypnea. Did have metabolic encephalopathy as noted below as well suspected secondary to infection. However, did not meet sepsis criteria given normal lactate, no hypotension, no DEE or other endorgan dysfunction. Chest x-ray on admit suspicious for aspiration pneumonia. Known history of oropharyngeal dysphagia as noted below. Will treat with IV ceftriaxone and azithromycin for now. Will keep n.p.o. and speech therapy consulted for further evaluation. Infectious workup pending. 2. Acute metabolic encephalopathy ? Alert and oriented x [address] but not time and poor insight into medical condition on admission. Suspected secondary to infection as above. Treatment as above. Notably is on several medications for anxiety/depression asnoted below; okay to continue these medications but would avoid other sedating medications as able. 3. Chronic oropharyngeal dysphagia ? Speech therapy consulted as above. Had barium swallow study done back in December 2023 that showedmild to moderate oropharyngeal dysphagia and concern for esophageal dysphagia. Patient presented with aspiration pneumonitis at thattime. However she improved quickly and was discharged home on hospital day 2 without GI evaluation. Appreciate speech therapy recommendations. 4. Suspected malnutrition ? Nutrition consulted. BMI 19 on admit with suspected poor p.o. intake in setting of dysphagia as above. Appreciate nutrition recommendations. 5. Anxiety/depression ? Continue home BuSpar, clonazepam 3 times daily as needed and doxepin at night. 6. GERD ? Continue home PPI. DVT prophylaxis: Lovenox CODE STATUS: Full code, unverified Expected disposition: TBD Total clinical time spent by myself addressing the patient's medical issues, reviewing all the data, and collaborating with patient's care team: 75 minutes. Charges/Coding Visit Charges Inpatient E&M: 21586 Init Hosp L3 08/28/24 0753 Cosigner Signature (if applicable): CC: Dr. Christofer Espino DO; Dr. Harish Luis MD~ Signed [facility]06-11-2025 Discharge summary Author Huber Ballard [facility] Note Date/Time August 27, 2024 6:51 pm [facility] Medical Records Department [address] [place] [address] Emergency Department Summary 08/27/24 MR#: [id number] Acct: [id number] Name: CAROL ZARAGOZA Rep #:[id number] : 1950 74 From: Huber Ballard MD PCP: Dr. Harish Luis MD Status:REG E R Location: ED ADDENDUM by Dr. Huber Ballard MD on 08/27/24 at 1851 Sinus tachycardia rate of 111. MN interval 144 ms cures duration 68 ms. QT duration 218 ms. [place] is normal. She has evidence of low [...] history: Currently ambulating with a cane ROS [facility] ED Constitutional Constitutional ED: Reports chills and [...] 86.9 H Lymph % (Auto) 7.0 L Avery % (Auto) 5.1 Eos % (Auto) 0.2 [...] Sl Cldy Urine pH 6.0 Ur Specific Handley 1.015 Urine Protein 30 H Urine Glucose [...] lower lobe. Otherwise grossly unchanged Reading Location: [facility] Management Discussion w/another healthcare provider: Hospitalist (Spoke [...] laboratories also and x-rays), Discussing w/Patient &/or Family/Receiving Lead, Discussing w/Consultants (Discussed with hospitalist), Arranging Admission or Transfer and - (Treatment for infectious cephalopathy/sepsis due to pneumonia) Discharge Plan Dx/Rx/DC Orders Clinical Impression: Sepsis, Encephalopathy due to infection, Left lower lobe pulmonary infiltrate Disposition Disposition: Acute Care Hospital [facility] What to do if you have Problems For any increased pain, shortness of breath, bleeding, nausea or vomiting, chestpain, or any unexpected problems, contact your Primary Care Provider. Call [facility] ([phone]) or report to the closest Emergency Room. Call 911 if necessary. 08/27/24 1724 <Electronically signed by Huber Ballard MD> Cosigner Signature (if applicable): CC: Dr. Harish Luis MD ~ Signed [facility] Work Phone: 1(874) 906-668706-11-2025 Evaluation note* Diagnosis Onset Date Resolution Status Admit Date Aspiration pneumonia acute August 27, 2024 5:13pm Encephalopathy due to infection acut e August 27, 2024 5:13pm [facility] Work Phone: 1(233) 961-560806-11-2025 Discharge summary [facility] Medical Records Department [address] [place] [address] Emergency Department Summary 08/27/24 MR#: [id number] Acct: [id number] Name: CAROL ZARAGOZA Rep #:[id number] : 1950 74 From: Huber Ballard MD PCP: Dr. Harish Luis MD Status:REG E R Location: ED ADDENDUM by Dr. Huber Ballard MD on 08/27/24 at 1851 Sinus tachycardia rate of 111. MN interval 144 ms cures duration 68 ms. QT duration 218 ms. [place] isnormal. She has evidence of low voltage. There is noacute ischemic changes noted. EKG was performedat 1633 08/27/24 1851 Cosigner Signature (if applicable): cc: Dr. Harish [...] to inspection, nondistended, normoactive bowel sounds, non-tender, non- distended and no masses; Negative for hepatosplenomegaly Back/Spine [...] hypotensive. Labs do not indicate that she isprerenal.) MDM MDM MDM Narrative Medical decision making narrative: Patient is encephalopathic due to infectious process. Suspect pneumonia. Sepsis order set was initiated. Patient received a fluid bolus. She was treated with Rocephin and azithromycin for community-acquired pneumonia. Suspect she has a right lower lobe pneumonia based on her exam. Clinically she isdehydrated. History & Record Review Additional record(s) reviewed:: Prior ED visit (Seen in May of this year for right shoulder contusion. Patient was seen December 2023 for altered mental status. She was found to have encephalopathy.Encephalopathy was due to UTI.) and Prior labs [...] 86.9 H Lymph % (Auto) 7.0 L Avery % (Auto) 5.1 Eos % (Auto) 0.2 [...] Sl Cldy Urine pH 6.0 Ur Specific Handley 1.015 Urine Protein 30 H Urine Glucose [...] lower lobe. Otherwise grossly unchanged Reading Location: [facility] Management Discussion w/another healthcare provider: Hospitalist (Spoke [...] laboratories also and x-rays), Discussing w/Patient &/or Family/Receiving Lead, Discussing w/Consultants (Discussed with hospitalist), Arranging Admission or Transfer and - (Treatment for infectious cephalopathy/sepsis due to pneumonia) Discharge Plan Dx/Rx/DC Orders Clinical Impression: Sepsis, Encephalopathy due to infection, Left lower lobe pulmonary infiltrate Disposition Disposition: Acute Care [facility] What to do if you have Problems For any increased pain, shortness of breath, bleeding, nausea or vomiting, chestpain, or any unexpected problems, contact your Primary Care Provider. Call [facility] ([phone]) or report tothe closest Emergency Room. Call 911 if necessary. 08/27/24 1724 Cosigner Signature (if applicable): CC: Dr. Harish Luis MD ~ Signed [facility]06-11-2025 Radiology Diagnostic study note [facility] Imaging Services [address] [place], [place] [id number] Chest 1 View (Portable) MR#: [id number] Acct: [id number] Name: CAROL ZARAGOZA Rep #: [id number] : 1950 F 74 From: Kayla Ham MD PCP: Dr. Harish Luis MD Status: REG E R Study:Chest 1 View (Portable) Date of Exam: 08/27/24 Exam# [id number] Ordering Dr: Malcom Ballard MD PROCEDURE: CHEST [...] lower lobe. Otherwise grossly unchanged Reading Location: [id number] CC: Dr. Harish Luis MD; Dr. Huber Ballard MD ~ Play Back Operator: Signed [facility]03-19-2025 Radiology Diagnostic study note [facility] Imaging Services [address] [place], [place] [id number] Shoulder min 2 Views MR#: [id number] Acct: [id number] Name: CAROL ZARAGOZA Rep #: [id number] : 1950 F 74 From: Robert Mancuso DO PCP: Dr. Harish Luis MD Status: REG E R Study:Shoulder min 2 Views Date of Exam: 06/04/24 Exam# [id number] Ordering Dr: Mat White DO PROCEDURE: Right [...] White DO; Dr. Harish Luis MD ~ Play Back Operator: Signed [facility]10-18-2024 [facility] Medical Records Department [address] [place] [address] Discharge Summary 01/04/24 1433 MR#: [id number] Acct: [id number] Name: CAROL ZARAGOZA Rep #: [id number] : 1950 73 From: Rafita Siddiqui DO PCP: Dr. Harish Luis MD Status:DIS IN Location: [facility] [id number] Providers Date of Admission: 01/03/24 Date of Discharge: 01/04/24 Primary Care Physician: Dr. Harish Luis MD Reason For Visit: ACUTE ENCEPHELOPATHY DUE TO UTI Diagnosis Discharge Diagnosis (1) Acute encephalopathy: Status: Acute Code(s): G93.40 - Encephalopathy, unspecified (2) Pneumonia: Status: Resolved Code(s): J18.9 - Pneumonia, unspecified organism Plan 1. Acute encephalopathy secondary to aspiration pneumonitis #2 acute aspiration pneumonitis #3 chronic oropharyngeal dysphagia #4 bacteriuria Urinary tract infection was ruled out Medications at Discharge Home Medications buspirone 7.5 mg tablet 7.5 mg PO BID ANXIETY 02/17/20 clonazepam 1 mg tablet 1 mg PO TID ANXIETY 02/17/20 doxepin 150 mg capsule 150 mg PO QHS ANXIETY 07/30/23 metoprolol succinate 25 mg tablet,extended release 24 hr 25 mg PO DAILY BLOOD PRESSURE 07/30/23 omeprazole 20 mg capsule,delayed release 20 mg PO DAILY GERD 07/30/23 apixaban 5 mg tablet (Eliquis) 5 mg PO BID blood thinner 01/03/24 doxycycline monohydrate 100 mg tablet 100 mg PO BID #14 tabs 01/04/24 Hospital Course Operations None Procedures None Summary of Care Provided Minutes Spent on Discharge: 31 Hospital Course: This 72-year-old white female was seen in the emergency room at [facility] due to confusion and generalized weakness. Patient had been talking about trying to operate the stove at her home in order to make Thanksgiving pumpkin pies which was not the case. Workup in the emergency room included a CBC which showed an elevated white blood cell count, hemoglobin was 11, and urinalysis showed 25-50 WBCs and 4+ bacteria with +[address] showed no acute process, chest x-ray showed bibasilar opacities concerning for pneumonia. Patient was not felt to have acute cystitis, she was admitted to PCU and placed on antibiotics, she was seen by speech therapy due to chronic oropharyngeal dysphagia. The following day patient was alert and oriented x 3 and appropriate. Patient was noncompliant with her diet at home. The following day, her white blood cell count was normal indicating probable aspiration pneumonitis, she was seen in consultation by speech therapy and underwent a modified barium swallow which showed the presence of oropharyngeal dysphagia her diet was recommended to be modified at home. On 01/04/2024, patient was seen and examined: On examination she appeared in good health and spirits, she does not appear to be in any distress. Vital signs as documented. Skin warm and dry and without overt rashes. Neck without JVD, thyroid appears normal, trachea is midline, neck is supple. Lungs clear, normal air movement was noted. Heart exam notable for regular rhythm, normal sounds and absence of murmurs, rubs or gallops. Abdomen unremarkable and without evidence of organomegaly, masses, or abdominal aortic enlargement, bowel sounds are present in all 4 quadrants, no abdominal tenderness was noted. Extremities nonedematous, no cyanosis was noted, no clubbing was noted. Neuro: Cranial nerves II through XII are grossly intact, no focal motor deficits were noted, sensation to light touch and pinprick is intact, motor exam 5/5 throughout. Psych: Patient is alert and oriented x3, she does not appear anxious or depressed, she does not appear agitated. On 01/04/2024, patient was felt to be stable for discharge home Weight / BMI Weight Weight: 52.3 kg Body Mass Index (BMI) 21.0 ABG / Lab / Microbiology Data 01/04/24 05:11 01/04/24 05:11 Laboratory: Laboratory Results - last 24 hr 01/03/24 13:20: Sodium 138, Potassium 3.4 L, Chloride 109 H, Carbon Dioxide 24.0, Anion Gap 5, BUN 8, Creatinine 0.96, Estim Creat Clear Calc 39.38, Est GFR (MDRD) Af Amer 73, Est GFR (MDRD) Non-Af 60, BUN/Creatinine Ratio 8.3 L, Glucose 114 H, Lactic Acid 1.0, Calcium 8.5, Magnesium 1.9, Troponin I High Sens 3 01/03/24 14:23: Urine Color Yellow, Urine Clarity Cloudy, Urine pH 7.0, Ur Specific Handley 1.010, U rine Protein 15 H, Urine Glucose (UA) Normal, Urine Ketones Negative, Urine Occult Blood 25 H, Urine Nitrite Negative, Urine Bilirubin Negative, Urine Urobilinogen Normal, Ur Leukocyte Esterase 500 H, Urine RBC 0-5 SEEN, Urine WBC 25-50 SEEN, Ur Squamous Epith Cells 0 SEEN, Ur Renal Epithelial Cell 0-5 SEEN, Urine Bacteria 4+, Urine Mucus 0 SEEN, Urine Yeast 1+ 01/04/24 05:11: WBC 9.1, RBC 3.20 L, Hgb 9.9 L, Hct 31.2 L, MCV 97.5, MCH 30.9, MCHC 31.7 L, RDW Std Deviation 53.7 H, RDW Coeff of Mehnaz 15.0 H, Plt Count 314, MP (more content not included)...[facility]08-16-2023 Discharge [facility] November 01, 2022 11:03am Note Date/Time November 01, 2022 7: 51am [facility] Medical Records Department [address] [place] [address] Emergency Department Summary 11/01/22 MR#: [id number] Acct: [id number] Name: CAROL ZARAGOZA Rep #:[id number] : 1950 72 From: Armando Santamaria PCP: Dr. Harish Luis MD Status:ADM I N Location: [place] [address] HPI History of Present Illness Chief Complaint: [facility] Medical History Allergic rhinitis Ambulates with cane [...] bisacodyl 10 mg rectal suppository 10 mg MN DAILY PRN Constipation 30 days #0 ea10/14/22 [...] the patient's she has been having progressive functional" neurologic" decline over last month. Notes she forgets [...] rhythm, normal axis, no intervals, no STEMI [facility] Narrative: The patient was hemodynamically stable, afebrile [...] (Auto) 44.7 L Lymph % (Auto) 38.1 Avery % (Auto) 10.0 Eos % (Auto) 5.0 [...] your Primary Care Provider. Call [facility] ([phone]) or report to the closest Emergency Room. Call 911 if necessary. 11/01/22 1103 <Electronically signed by Armando Miranda DO> Cosigner Signature (if applicable): CC: Dr. Harish Luis MD ~ Signed [facility] Work Phone: 1(853) 917-392407-29-2023 Discharge summary Author Zia Posey [facility] October 14, 2022 8:34am Note Date/Time October 14, 2022 8:25 am [facility] Medical Records Department [address] [place] [address] Instructions for Home/Discharge Instructions 10/14/22823 MR#: [id number] Acct: [id number] Name: CAROL ZARAGOZA Rep #:[id number] : 1950 72 From: Zia Rivero PCP: [...] and then as needed for constipation Available kalt-gsl-clangbs. bisacodyl 10 mg Suppository 10 mg MN DAILY PRN (Reason: Constipation) 30 Days Qty: 0 0RF Rx Instructions: Bxra-jxs-eiowlgv. polyethylene glycol 3350 [Miralax] 17 gram/dose powder [...] MD; Dr. Nallely Mccann MD ~ Signed [facility] Work Phone: 1(650) 768-436707-29-2023 Progress note Author Nallely Mccann [facility] October 14, 2022 8:22am Note Date/Time October 14, 2022 8:22 am [facility] Medical Records Department [address] [place] [address] Progress Note - Surgery 10/14/22 0820 MR#: [id number] Acct: [id number] Name: CAROL ZARAGOZA Rep #:[id number] : 1950 72 From: Nallely Mccann MD PCP: Dr. Harish Luis MD Status:ADM I N Location: MS3 KZ330-0 Subjective Subjective Per patient and nursing she had a large bowel movement with the enemas and laxatives. Patient denies abdominal pain or nausea or vomiting. Patient try togo home. Objective Data Objective Data Vital Signs: [...] Sl. Cloudy, Urine pH 6.0, Ur Specific Handley 1.015, Urine Protein Negative, Urine Glucose (UA) [...] 78.3 H, Lymph % (Auto) 12.0 L, Avery % (Auto) 9.2, Eos % (Auto) 0.0, [...] Neut % (Auto) 62.2, Lymph % (Auto) 27.8,Avery % (Auto) 8.4, Eos % (Auto) 0.9, [...] retention-management per hospitalist. Nallely Mccann M.D. Pager: [phone] [facility] [address] [place] [address], Outpatient Pavilion, [address] [place] [address] Office: [phone] Charges/Coding Visit Charges Inpatient E&M: 45318 Subs Hosp L2 10/14/22 0822 <Electronically signed by Nallely Mccann MD> Cosigner Signature (if applicable): CC: ~ Signed [facility] Work Phone: 1(457) 213-938107-29-2023 Consult note Author Nallely Mccann [facility] October 14, 2022 8:20am Note Date/Time October 13, 2022 1:53 pm [facility] Medical Records Department [address] [place], [place] [id number] Consultation - Surgical 10/13/22 1353 MR#: [id number] Acct: [id number] Name: CAROL ZARAGOZA Rep #:[id number] : 1950 72 From: Nallely Mccann MD PCP: Dr. Harish Luis MD Status:ADM I N Location[place] [facility] CD880-7 Assessment & Plan Assessment/Plan (1) Abnormal CT [...] to urinary retention. Nallely Mccann M.D. Pager: [phone] [facility] [address] [place] [address], [facility], [address] [place] [address] Office: [phone] HPI Consult Data Date of Consult: 10/14/22 [...] is currently getting a IV fluid bolus. [facility] Medical History Allergic rhinitis Ambulates with cane [...] Sl. Cloudy, Urine pH 6.0, Ur Specific Handley 1.015, Urine Protein Negative, Urine Glucose (UA) [...] 78.3 H, Lymph % (Auto) 12.0 L, Avery % (Auto) 9.2, Eos % (Auto) 0.0, [...] Rafael Sherwood MD at 11:53 EDT , Charges/Coding Visit Charges Inpatient E&M: 62959 Init Hosp L3 10/14/22 0820 <Electronically signed by Nallely Mccann MD> Cosigner Signature (if applicable): CC: Dr. Harish Luis MD; Dr. Nallely Mccann MD~ Signed [facility] Work Phone: 1([phone]) 354-594807-29-2023 Discharge summary Author Sheyla [facility] October 13, 2022 10:21pm Note Date/Time October 13, 2022 11:2 1am [facility] Medical Records Department [address] [place] [address] Emergency Department Summary 10/13/22 MR#: [id number] Acct: [id number] Name: CAROL ZARAGOZA Rep #:[id number] : 1950 72 From: Sheyla Santamaria PCP: Dr. Harish Luis MD Status:ADM I N Location[place] [facility] FQ686-1 HPI HPI - GI History of Present [...] time she also had an EGDfor dysphagia. [facility] Medical History Allergic rhinitis Ambulates with [...] (Auto) Neut % (Auto) Lymph % (Auto) Avery % (Auto) Eos % (Auto) Baso % [...] Sl. Cloudy Urine pH 6.0 Ur Specific Handley 1.015 Urine Protein Negative Urine Glucose (UA) [...] 78.3 H Lymph % (Auto) 12.0 L Avery % (Auto) 9.2 Eos % (Auto) 0.0 [...] Color Urine Clarity Urine pH Ur Specific Handley Urine Protein Urine Glucose (UA) Urine Ketones [...] Signed: Rafael Sherwood MD at 11:53 EDT Reading Location ID and State: [facility] / [place] , Service support , Discharge Plan Dx/Rx/DC Orders Clinical Impression: Paralytic ileus of small intestine and colon, Urinary retention, Abnormal CT ofthe abdomen Disposition Disposition: Acute Care Hospital [facility] Discharge Date/Time: 10/13/22 15:24 What to do if you have Problems For any increased pain, shortness of breath, bleeding, nausea or vomiting, chestpain, or any unexpected problems, contact your Primary Care Provider. Call [facility] ([phone]) or report to the closest Emergency Room. Call 911 if necessary. 10/13/222220 <Electronically signed by Sheyla Slade DO> Cosigner Signature (if applicable): CC: Dr. Harish Luis MD ~ Signed [facility] Work Phone: [phone]) 651-864807-28-2023 History and physical note Author Zia Posey [facility] October 13, 2022 3:13pm Note Date/Time October 13, 2022 2:42 pm [facility] Medical Records Department [address] [place] [address] H&P Exam - Hospitalist 10/13/22 1440 MR#: [id number] Acct: [id number] Name: CAROL ZARAGOZA Rep #:[id number] : 1950 72 From: Zia Rivero PCP: Dr. Harish Luis MD Status:ADM I N Location: DE3 CL003-6 HPI - General General Date of Admission: 10/13/22 Date of Service: 10/13/22 Chief Complaint: Constipation for long time but acutely for last 2 days HPI Narrative CAROL ZARAGOZA, estrella a 72 F was sent to ED [...] in assessment plan. Patient is further admitted. [facility] Medical History Allergic rhinitis Ambulates with cane [...] Sl. Cloudy, Urine pH 6.0, Ur Specific Handley 1.015, Urine Protein Negative, Urine Glucose (UA) [...] 78.3 H, Lymph % (Auto) 12.0 L, Avery % (Auto) 9.2, Eos % (Auto) 0.0, [...] catheter in ED.[facility]. Started on IV fluid Ringer lactate. [...] no meaningful recovery Total time spent in iypa-ng-nnyv encounter in discussion of advanced directive 17 [...] Sl. Cloudy, Urine pH 6.0, Ur Specific Handley 1.015, Urine Protein Negative, Urine Glucose (UA) [...] 78.3 H, Lymph % (Auto) 12.0 L, Avery % (Auto) 9.2, Eos % (Auto) 0.0, [...] 0.7 L Charges/Coding Visit Charges Inpatient E&M: 42430 Init Hosp L3 Procedures Hospitalists Procedures: 86294 Advncd Care Plan 30 Min 10/13/22 3751 <Electronically signed by Zia Posey MD> Cosigner Signature (if applicable): CC: Dr. Zia Posey MD; Dr. Harish Luis MD~ Signed [facility] Work Phone: Discharge summary Author Christofer Espino [facility] Note Date/Time August 29, 2024 12:5 2pm [facility] Medical Records Department [address] [place] [address] Instructions for Home/Discharge Instructions 08/29/24 1250 MR#: [id number] Acct: [id number] Name: CAROL ZARAGOZA Rep #:[id number] : 1950 74 From: Christofer ashby DO PCP: Dr. Harish Luis MD Status:ADM I N Discharge Instructions DC O2, CPAP, BIPAP needs Home O2 Discharge instructions: No Dressing / Incision Discharge Activity: No Restrictions Follow Up Care Test Results: Test results from this visit will be discussed in further detail at your follow- up appointment, if applicable. Discharge Plan Admission Admit Date/Time: 08/27/24 17:13 Primary Reason for Your Visit: confusion w/ fevers Attending Provider: Christofer Espino Primary Care Provider: Harish Luis Chi Discharge Orders/Prescriptions Prescriptions: New doxycycline hyclate 100 mg tablet 100 mg PO BID 5 Days Qty: 10 0RF Continued clonazepam 1 MG tablet 1 mg PO TID buspirone 7.5 MG tablet 7.5 mg PO BID omeprazole 20 mg capsule,delayed release(DR/EC) 20 mg PO DAILY doxepin 150 mg capsule 150 mg PO QHS Referrals / Follow Up: Harish Luis Chi, MD [Primary Care Provider] - Disposition Disposition (needs filled in before D/C Order can be placed): Home, Self Care 08/29/24 1252<Electronically signed by Christofer Espino DO>Christofer Espino DO CC: Dr. Harish Luis MD ~ Signed [facility] Work Phone: Evaluation noteNo assessment information available [facility] Work Phone: Evaluation note* Diagnosis Onset Date Resolution Status Pain from implanted hardware acute [facility] Work Phone: Evaluation note* Diagnosis Onset Date Resolution Status Pain from implanted hardware acute Hypoxemia acute Influenza acute Pneumonia acute Respiratory failure acute [facility] Work Phone: Evaluation note* Diagnosis Onset Date Resolution Status Facial droop acute Hypoxemia resolved Influenza resolved Pneumonia resolved Respiratory failure resolved Paralytic ileus of small intestine and colon acute [facility] Work Phone: Evaluation note* Diagnosis Onset Date Resolution Status Facial droop acute Hypoxemia resolved Influenza resolved Pneumonia resolved Respiratory failure resolved Abnormal CT of the abdomen a cute Paralytic ileus of small intestine and colon acute Urinary retention acute [facility] Work Phone: Evaluation note* Diagnosis Onset Date Resolution Status Facial droop acute Hypoxemia resolved Influenza resolved Pneumonia resolved Respiratory failure resolved Abnormal CT of the abdomen a cute Paralytic ileus of small intestine and colon resolved Urinary retention resolved Acute alteration in mental status acute Influenza B acute [facility] Work Phone: Evaluation note* Diagnosis Onset Date Resolution Status Paralytic ileus of small intestine and colon resolved Urinary retention resolved Abnormal TSH acute Toxic metabolic encephalopathy acute Debility resolved Generalized weakness resolve d Influenza B resolved [facility] Work Phone: Evaluation note* Diagnosis Onset Date Resolution Status Acute dehydration acute Acute hypotension acute Acute kidney injury acute Aspiration pneumonia acute Closed head injury acute Falls acute Fracture of humeral head acu te Hypoxia acute Pulmonary emboli acute [facility] Work Phone: History and physical note Author Zia Posey [facility] October 13, 2022 3:13pm Note Date/Time October 13, 2022 2:42 pm [facility] Medical Records Department [address] [place] [address] H&P Exam - Hospitalist 10/13/22 1440 MR#: [id number] Acct: [id number] Name: WILFREDOUshaCAROL M Rep #:[id number] : 1950 72 From: Zia Rivero PCP: Dr. Harish Luis MD Status:ADM I N Location[place] [facility] ME555-6 HPI - General General Date of Admission: [...] in assessment plan. Patient is further admitted. [facility] Medical History Allergic rhinitis Ambulates with cane [...] Sl. Cloudy, Urine pH 6.0, Ur Specific Handley 1.015, Urine Protein Negative, Urine Glucose (UA) [...] 78.3 H, Lymph % (Auto) 12.0 L, Avery % (Auto) 9.2, Eos % (Auto) 0.0, [...] no meaningful recovery Total time spent in vbkr-[id number]-wbgl encounter in discussion of advanced directive 17 [...] Sl. Cloudy, Urine pH 6.0, Ur Specific Handley 1.015, Urine Protein Negative, Urine Glucose (UA) [...] 78.3 H, Lymph % (Auto) 12.0 L, Avery % (Auto) 9.2, Eos % (Auto) 0.0, [...] 0.7 L Charges/Coding Visit Charges Inpatient E&M: 19239 Init Hosp L3 Procedures Hospitalists Procedures: 37779 Advncd Care Plan 30 Min 10/13/22 1512 <Electronically signed by Zia Posey MD> Cosigner Signature (if applicable): CC: Dr. Zia Posey MD; Dr. Harish Luis MD~ Signed [facility] Work Phone: Hospital Discharge instructions Additional Instructions I prescribed tramadol and prednisone which is a steroid to treat your chronic pain. You can continue taking Aleve. Please follow-up with your primary care doctor next week. [facility] Work Phone: Reason for referral (narrative)No reason for referral information [facility] Work Phone: Family History No Family History Records Found Relationship Condition Age at Onset Recorded Date/T tobin Not Specified Malignant neoplasm Unknown Hypertension Unknown Cerebrovascular accident (CVA) Unknown Relationship Condition Age at Onset Recorded Date/T tobin mother Hypertension Unknown Cerebrovascular accident (CVA) Unknown Cardiac disease Unknown Cerebral hemorrhage Unknown father Malignant neoplasm Unknown Advance Directives No Advanced Directives Records Found Advance Directive Response Recorded Date/ Time Advance Directives Yes January 21, 2015 5:23pm Living Will Yes February 16 3:26pm Power of Management Development Specialist Yes February 17, 2020 3:26pm Advance Directive Response Recorded Date/ Time Advance Directives Yes January 21, 2015 4:23pm Living Will Yes February 16 2:26pm Power of Management Development Specialist Yes February 17, 2020 2:26pm Advance Directive Response Recorded Date/ Time Name of Medical Power of Management Development Specialist IRVING LOVER April 20, 2022 11:20am Advance Directives Yes January 21, 2015 5:23pm Living Will Yes April 20 11:20am Power of Management Development Specialist Yes April 20, 2022 11:20am Advance Directive Response Recorded Date/ Time Name of Medical Power of Management Development Specialist IRVING LOVER April 20, 2022 11:20am Name of Medical Power of Management Development Specialist July 29, 2022 7:49am Advance Directives Yes January 21, 2015 5:23pm Living Will Yes July 29, 2022 7 :49am Power of Management Development Specialist Yes July 29, 2022 7:49am Advance Directive Response Recorded Date/ Time Name of Medical Power of Management Development Specialist July 29, 2022 10:09am Name of Medical Power of Management Development Specialist Jose Lover October 13, 2022 10:25am Advance Directives Yes January 21, 2015 5:23pm Living Will Yes October 13, 2022 10:25am Power of Management Development Specialist Yes October 13 10:25am Advance Directive Response Recorded Date/ Time Name of Medical Power of Management Development Specialist July 29, 2022 10:09am Name of Medical Power of Management Development Specialist Jose Lover October 13, 2022 3:38pm Advance Directives Yes January 21, 2015 5:23pm Living Will Yes October 13, 2022 3:38pm Power of Management Development Specialist Yes October 13 3:38pm Advance Directive Response Recorded Date/ Time Name of Medical Power of Management Development Specialist July 29, 2022 10:09am Name of Medical Power of Management Development Specialist Jose Lover October 13, 2022 3:38pm Name of Medical Power of Management Development Specialist November 01, 2022 7:48am Advance Directives Yes January 21, 2015 5:23pm Living Will Yes November 01 7:48am Power of Management Development Specialist Yes November 01, 023 7:48am Advance Directive Response Recorded Date/ Time Name of Medical Power of Management Development Specialist Jose Bairdr October 13, 2022 3:38pm Name of Medical Power of Management Development Specialist November 01, 2022 7:48am Advance Directives Yes January 21, 2015 5:23pm Living Will No November 01 11:39am Power of Management Development Specialist No November 01, 2 023 11:39am Advance Directive Response Recorded Date/ Time Advance Directives Yes January 21, 2015 4:23pm Living Will No March 17, 2 023 1:30pm Power of Management Development Specialist No March 17, 2023 1:30pm Advance Directive Response Recorded Date/ Time Advance Directives Yes January 21, 2015 5:23pm Living Will No March 17, 2 023 2:30pm Power of Management Development Specialist No March 17, 2023 2:30pm Advance Directive Response Recorded Date/ Time Advance Directives Yes January 21, 2015 5:23pm Living Will No July 24, 2023 8: 00pm Power of Management Development Specialist No July 24, 2023 8:00pm Advance Directive Response Recorded Date/ Time Advance Directives Yes January 21, 2015 5:23pm Living Will No July 30, 2023 1 :46pm Power of Management Development Specialist No July 30, 2023 1:46pm Advance Directive Response Recorded Date/ Time Living Will Yes June 04, 2024 3:44pm Do you have a Healthcare Pow er of Management Development Specialist? Yes June 04, 2024 3:44pm Name of Medical Power of Management Development Specialist Jose Wilder band June 04, 2024 3:44pm Advance Directives Yes October 25, 2 024 3:30pm Advance Directive Response Recorded Date/ Time Living Will Yes June 04, 2024 3:44pm Do you have a Healthcare Pow er of Management Development Specialist? Yes June 04, 2024 3:44pm Name of Medical Power of Management Development Specialist Jose Wilder band June 04, 2024 3:44pm Do you have a Healthcare Pow er of Management Development Specialist? No August 27, 2024 3:36pm Advance Directives Yes October 25 3:30pm Advance Directive Response Recorded Date/ Time Living Will Yes June 04, 2024 3:44pm Do you have a Healthcare Pow er of Management Development Specialist? Yes June 04, 2024 3:44pm Name of Medical Power of Management Development Specialist Jose pantoja June 04, 2024 3:44pm Do you have a Healthcare Pow er of Management Development Specialist? Yes August 27, 2024 8:46pm Advance Directives Yes October 25 3:30pm Chief Complaint and Reason for Visit [...] CAP W/ENCEPHALOPATHY August 27, 2024 5:1 3pm Chief Complaint Admit Date FALL, R SHOULDER PAIN June 04, 2024 3 :08pm Unspecified injury of head, initial enco unter July 15, 2024 3:35pm CAP W/ENCEPHALOPATHY August 27, 2024 5:1 3pm CAP W/ENCEPHALOPATHY August 28, 2024 11: 13am Reason for Visit Admit Date Aspiration pneumonia August 27, 2024 5:1 3pm Encephalopathy due to infection August 5:13pm Summary Purpose Additional Source Comments Care Teams [...] Primary Care Provider Active Dr. Demond Manley , Attending Provider, Referring P henok Active Team Status: Active Member Role Status Dates Dr. Harish Luis MD Primary Care Provider Active Dr. Dimitry Rosales DO Emergency Provider Active Dr. Rafita Siddiqui , DO Admit Provider, Attending Pro vider Active Team Status: Active Member Role Status Dates Dr. Harish Luis MD Primary Care Provider Active Dr. Dimitry Rosales DO Emergency Provider Active Dr. Rafita Siddiqui , DO Admit Provider, Attending Provider, Other Provider Active Team Status: Active Member Role Status Dates Dr. Harish Luis MD Primary Care Provider Active Dr. Dimitry Rosales DO Emergency Provider Active Dr. Rafita Siddiqui , DO Admit Provider, Other Provide r Active Dr. Doni Hanson DO Attending Provider, Other Provid er Active Team Status: Active Member Role Status Dates Dr. Harish Luis MD Primary Care Provider Active Dr. Dimitry Rosales DO Emergency Provider Active Dr. Rafita Siddiqui DO Admit Provider, Other Provide r Active Dr. Doni Hanson DO Referring Provider, Other Provid er Active Dr. Gurmeet Zarate DO Attending Provider Active Team Status: Active Member Role Status Dates Dr. Harish Luis MD Primary Care Provider Active Dr. Gurmeet Zarate , Attending Provider Active Dr. Doni Hanson DO Referring Provider Active Team Status: Active Member [...] Primary Care Provider Active Dr. Dannie Potts DO Attending Provider, Emergency Pr ovider Active [...] Attending Provider Active Start: August 27, 2024 Team Status: Inactive Member Role Status Dates Dr. Harish Luis MD Primary Care Provider Active Start: August 27, 2024 End: August 29, 2024 Dr. Huber Ballard MD Emergency Provider Active Sta rt: August 27, 2024 End: August 29, 2024 Dr. Christofer Espino DO Admit Provider Active Start: August 27, 2024 End: August 29, 2024 Dr. Christofer Espino DO Attending Provider Active Start: August 27, 2024 End: August 29, 2024 Dr. Christofer Espino DO Other Provider Active Start: August 27, 2024 Team Status: Active Member Role Status Dates Dr. Harish Luis MD Primary Care Provider Active Start: August 28, 2024 Dr. Huber Ballard MD Emergency Provider Active Sta rt: August 28, 2024 Dr. Christofer Espino DO Admit Provider Active Start: August 28, 2024 Dr. Christofer Espino DO Attending Provider Active Start: August 28, 2024 Dr. Christofer Espino DO Other Provider Active Start: August 28, 2024 INFORMATION SOURCE (unrecogn ized section and content) DATE CREATED AUTHOR 09/12/[address] [facility] FOR RECORDS PERTAINING TO PATIENTS WHO ARE [...] BE BASED ON THE PRIMARY CLINICAL RECORDS. [facility] [employer] provides no warranty or guarantee of the accuracy or completeness of information in this document.
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
--- OUTSIDE RECORDS SUMMARY | 2024-09-21 20:37 | XMS RPT_ITS | CCD ---
Author Organization [facility] Care Team Providers Care Snuff Grinder Name Role Phone Dr. Harish Luis Chi [...] Harish Luis Chi Primary Care Provider [phone] Armando Miradna Emergency Provider Dr. Helena Ann Admit Provider [...] Provider Dr. Irving White DO Emergency Provider [phone] Toby GUDIO, Dr. Harish Flores Primary Care Provider [phone] Dr. Irving White DO Attending Provider Toby GUIDO, Dr. Harish Flores Attending Provider [phone] Toby GUIDO, Dr. Harish Flores Referring Provider Eloi GUIDO, Dr. Ngo Emergency Provider Dr. Christofer Espino DO Admit Provider Dr. Christofer Espino DO Attending Provider Kenzie PLEITEZ, Dr. Beaulieu Other Provider [phone] Toby, Harish Chi Primary Care Unavailable Kalpesh, Zia Consulting Unavailable Kalpesh, Zia Admitting Unavailable Xu Macias Referring Unavailable Kalpesh, Zia Attending Unavailable Rafita Siddiqui Attending Unavailable Rafita Siddiqui Consulting Unavailable Daniel Lee Attending Unavailable Toby, Harish Chi Primary Care Unavailable Toby, Harish Chi Referring Unavailable Christofer Espino Attending Unavailable Christofer Espino Consulting Unavailable Toby, Hairsh Chi Primary Care Unavailable Christofer Espino Admitting [...] Unavailable Toby, Harish Chi Primary Care Unavailable Dennis GUIDO, Dr. Vanegas Emergency Provider Dr. Ricardo Justice DO Admit Provider Unavail able Dr. Ricardo Justice DO Attending Provider Unav ailable Allergies Allergy Classification Reported Allergen(s) Allergy Type Date of Onset Reaction(s) Facility (20 sources) Penicillins; Translations: [Penicillins] Allergy to substance 0 Rash [facility] (13 sources) HYDROcodone Drug Allergy 3 NERVOUS, [facility] Medications Current Medications Medication Drug Class(es) Dates Sig (Normalized) Sig (Original) busPIRone hydrochloride 7.5 mg oral tablet (20 sources) Start: 02-17-2020 take 1 tablet by mouth twice daily Buspirone 7.5 MG tablet Active 7.5 mg PO TWICE A DAY February 17, 2020 1:00am ANXIETY clonazePAM 1 mg oral tablet (20 sources) Benzodiazepine Start: 02-17-2020 take 1 tablet by mouth three times daily Clonazepam 1 MG tablet Active 1 mg PO THREE TIMES A DAY February 17, 2020 1:00am ANXIETY cyclobenzaprine hydrochloride 10 mg oral tablet (5 [...] PO AT BEDTIME July 30, 2023 12:00am ANXIETY Start: 04-20-2022 End: 10-13-2022 take 1 capsule by mouth at bedtime Doxepin 150 mg capsule Discontinued 150 mg PO AT BEDTIME April 20, 2022 1:00am October 13, 2022 10:30am Check with primary doctor hydroCHLOROthiazide 12.5 mg / valsartan 80 mg [...] mg PO DAILY July 30, 2023 12:00am GERD Start: 04-20-2022 End: 08-09-2022 take 1 capsule by mouth once daily Omeprazole 20 mg capsule,delayed release(DR/EC) Discontinued 20 mg PO DAILY April 20, 2022 1:00am August 09, 2022 8:34am Check with primary doctor topiramate 100 mg oral tablet (20 sources) Start: 02-17-2020 take 100 mg by mouth twice daily Topiramate Active 100 MG PO TWICE A DAY February 17, 2020 1:00am Start: 02-17-2020 End: 10-13-2022 take 1 tablet by mouth twice daily Topiramate 25 MG tablet Discontinued 25 mg PO TWICE A DAY February 17, 2020 1:00am October 13, 2022 10:30am migraines Completed/Discontinued Medications Medication Drug Class(es) Dates Sig (Normalized) Sig (Original) acetaminophen 325 mg oral tablet (15 sources) Start: 08-02-2022 End: 01-03-2024 Acetaminophen 325 mg Tablet Discontinued 650 mg PO EVERY 6 HOURS NEEDED as needed for Pain 1-10 Or Fever >100.7 0 0 August 02, 2022 12:00am January 03, [...] HOURS NEEDED as needed for Pain 10 3 0 August 29, 2023 November 02, 2023 8:55am Contusion of lower back Contusion of lower back and pelvis, initial encounter Start: 02-17-2020 take 1 tablet by norm th three times daily Hydrocodone-Acetaminophen Active 1 TABLE T PO THREE TIMES A DAY February 17, 2020 12:00am Start: 09-01-2018 End: 09-06-2018 Hydrocodone-Acetaminophen 1 TABLET tablet Discontinued 1 - 2 {tbl} PO EVERY 4 HOURS NEEDED as needed for Pain 10 3 0 September 01, 2018 12:00am September 03, 2018 12:00am September 06, 2018 12:08am Back pain Dorsalgia, unspecified Start: 09-01-2018 End: 09-06-2018 take 1 tablet by mouth every four hours as needed Hydrocodone-Acetaminophen Discontinued 1 - 2 TABLET PO EVERY 4 HOURS NEEDED 10 3 September 01, 2018 12:00am September 06, 2018 12:08am acetaminophen 325 mg / oxyCODONE hydrochloride 5 mg oral tablet (20 sources) Opioid Agonist Start: 06-20-2019 End: 06-27-2019 Oxycodone-Acetaminophen 1 TABLET tablet Discontinued 1 {tbl} PO EVERY 6 HOURS NEEDED as needed for Pain Score 6-10/10 30 7 0 June 20, 2019 June 26, 2019 12:00am June 27, 2019 12:02am Back pain Dorsalgia, unspecified Start: 06-20-2019 End: 06-27-2019 take 1 tablet by mouth every six hours as needed Oxycodone-Acetaminophen Discontinued 1 TABLET PO EVERY 6 HOURS NEEDED 30 7 June 20, 2019 June 27, 2019 12:02am apixaban 5 mg oral tablet (8 sources) Factor Xa Inhibitor Start: 01-03-2024 End: 08-27-2024 take 1 tablet by mouth twice daily Apixaban (Eliquis) 5 mg tablet Discontinued 5 mg PO TWICE A DAY January 03, 2024 12:00am August 27, 2024 8:58pm blood thinner Start: 08-04-2023 End: 01-03-2024 take 2 tablets by mouth twice daily, then take 1 tablet by mouth twice daily Apixaban (Eliquis) 5 mg tablet Discontinued 5 mg PO TWICE A DAY 60 2 August 04, 2023 12:00am January 03, 2024 3:13pm take 2 tabs (10mg) twice daily till 08/06/2023, then continue with one tablet (5mg) twice daily bisacodyl 10 mg rectal suppository (14 sources) Stimulant Laxative Start: 10-14-2022 End: 07-30-2023 Bisacodyl 10 mg Suppository Discontinued 10 mg RC DAILY as needed for Constipation 0 30 0 October 14, 2022 12:00am July 30, 2023 3:58pm [id number]. ciprofloxacin 500 mg oral tablet (14 sources) Quinolone Antimicrobial Start: 10-14-2022 End: 11-04-2022 take 1 tablet by mouth twice daily Ciprofloxacin Hcl 500 mg tablet Discontinued 500 mg PO TWICE A DAY 10 5 0 October 14, 2022 12:00am November 04, 2022 1:54pm citalopram 20 mg oral tablet (20 sources) Serotonin Reuptake Inhibitor Start: 08-09-2022 End: [...] PO Q4H as needed for abdominal pain 20 0 January 25, 2020 12:40pm February 17, 2020 3:20pm docusate sodium 50 mg / sennosides, skilled nursing 8.6 mg oral tablet (14 sources) Start: 10-14-2022 End: 07-30-2023 Sennosides-Docusa te Sodium (Stool Softener-Stimulan t Laxat) 8.6-50 mg Tablet Discontinued 2 {tbl} PO TWICE A DAY 0 30 0 October 14, 2022 12:00am July 30, 2023 4:02pm Take as scheduled for 3 days and then as needed for constipation Available [id number]. doxycycline hyclate 100 mg oral tablet (6 sources) Tetracycline-class Drug Start: 08-29-2024 End: 09-21-2024 take 1 tablet by mouth twice daily Doxycycline Hyclate 100 mg tablet Discontinued 100 mg PO TWICE A DAY 10 5 0 August 29, 2024 12:00am September 21, 2024 7:36pm Start: 01-04-2024 End: 08-27-2024 take 1 tablet by mouth twice daily Doxycycline Monohydrate 100 mg tablet Discontinued 100 mg PO TWICE A DAY 14 0 January 04, 2024 12:00am August 27, 2024 8:57pm gabapentin 400 mg oral capsule (17 sources) Anti-epileptic Agent Start: 04-20-2022 End: 01-03-2024 take 1 capsule by mouth every six hours Gabapentin 400 mg capsule Discontinued 400 mg PO EVERY 6 HOURS April 20, 2022 1:00am January 03, 2024 3:12pm Check with primary doctor levoFLOXacin 750 mg oral tablet (15 sources) Quinolone Antimicrobial Start: 08-02-2022 End: 10-13-2022 take 1 tablet by mouth once daily Levofloxacin 750 mg tablet Discontinued 750 mg PO DAILY 3 0 August 02, 2022 12:00am October 13, 2022 10:31am 24 hr metoprolol succinate 25 mg extended release oral tablet (5 sources) beta-Adrenergic Concetta Start: 07-30-2023 End: 08-27-2024 take 1 tablet by mouth once daily Metoprolol Succinate 25 mg tablet extended release 24 hr Discontinued 25 mg PO DAILY July 30, 2023 12:00am August 27, 2024 8:58pm BLOOD PRESSURE metroNIDAZOLE 500 mg oral tablet (14 sources) Nitroimidazole Antimicrobial Start: 10-14-2022 End: 11-04-2022 take 1 tablet by mouth every eight hours Metronidazole 500 mg tablet Discontinued 500 mg PO Q8H 15 5 0 October 14, 2022 12:00am November 04, 2022 1:54pm naproxen 500 mg oral tablet (20 sources) Nonsteroidal Anti-inflammatory Drug Start: 10-13-2022 End: 03-17-2023 take 1 tablet by mouth every twelve hours as needed for pain Naproxen 500 mg tablet Discontinued 500 mg PO Q12H as needed for arthritis pain 0 30 0 October 14, 2022 8:30am March 17, 2023 4:28pm nystatin [id number] unt/ml oral suspension (15 sources) Polyene Antifungal Start: 08-08-2022 End: 08-15-2022 take 1 mL by mouth twice daily Nystatin 100,000 unit/mL suspension Discontinued 10 mL PO TWICE A DAY 140 7 0 August 08, 2022 12:00am August 14, 2022 [...] release (DR/EC) Discontinued 40 mg PO DAILY 30 0 November 04, 2022 12:00am March 17, 2023 4:28pm Start: 08-09-2022 End: 10-13-2022 take 1 tablet by mouth once daily Pantoprazole 40 mg tablet,delayed release (DR/EC) Discontinued 40 mg PO DAILY August 09, 2022 12:00October 13, 2022 10:30am polyethylene glycol 3350 41210 mg powder for oral solution (14 sources) Osmotic Laxative Start: 10-14-2022 End: 03-17-2023 Polyethylene Glycol 3350 (Miralax) 17 gram/dose powder Discontinued 17 g PO DAILY 238 0 October 14, 2022 12:00am March 17, 2023 4:28pm available over the counter predniSONE 20 mg oral tablet (9 sources) Start: 03-17-2023 End: 07-30-2023 take 2 tablets by mouth once daily Prednisone 20 mg tablet Discontinued 40 mg PO DAILY 10 5 0 March 17, 2023 1:00am July 30, 2023 4:02pm Start: 03-17-2023 End: 07-30-2023 take 40 mg by mouth once daily Prednisone Discontinued 40 MG PO DAILY 10 5 March 17, 2023 1:00am July 30, 2023 4:02pm traMADol hydrochloride 50 mg oral tablet (9 sources) Opioid Agonist Start: 03-17-2023 End: 11-02-2023 take 1 tablet by mouth every six hours as needed for pain Tramadol 50 mg tablet Discontinued 50 mg PO EVERY 6 HOURS as needed for pain 12 3 0 March 17, 2023 1:00am November 02, 2023 8:55am Chronic low back pain Low back pain, unspecified Other chronic pain traZODone hydrochloride 150 mg oral tablet (20 [...] 01-26-2020 Episodic Acute and unspecified renal failure (6 sources) Acute renal failure syndrome; Translations: [Acute kidney failure, unspecified] 07-30-2023 Episodic Aspiration pneumonitis; food/vomitus (11 sources) Aspiration pneumonia; Translations: [Pneumonitis due to inhalation of food and vomit] Onset: 5 07-30-2023 Episodic Cardiac dysrhythmias (20 sources) Palpitations 01-23-2020 Episodic Complication of device; implant or graft (19 sources) Pain; Translations: [Pain due to other internal prosthetic devices, implants and grafts, initial encounter] 04-27-2022 Episodic E Codes: Fall (20 sources) Fall; Translations: [Unspecified fall, initial encounter] 07-24-2023 Episodic Esophageal disorders (20 sources) Gastroesophageal reflux disease 01-23-2020 Chronic Essential hypertension (1 source) Essential (primary) hypertension; Translations: [Essential (primary) hypertension] Onset: 5 Chronic Fluid and electrolyte disorders (6 sources) Dehydration; Translations: [Dehydration] 07-30-2023 Episodic Fracture of upper limb (13 sources) Closed fracture proximal humerus, greater tuberosity; Translations: [Displaced fracture of greater tuberosity of right humerus, initial encounter for closed fracture] Onset: 4 07-24-2023 Episodic Genitourinary symptoms and ill-defined conditions (20 sources) Retention of urine; Translations: [Retention of [...] Translations: [Scoliosis, unspecified] 02-17-2020 Chronic Other aftercare (4 sources) Long-term current use of 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; Translations: [shelter (current) use of 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s] 08-19-2023 Episodic Other bone disease and musculoskeletal deformities (20 sources) Segmental and somatic dysfunction; Translations: [Segmental and somatic dysfunction of lumbar region] 02-17-2020 Episodic Other bone disease and musculoskeletal deformities (20 sources) Thoracic segmental dysfunction; Translations: [Segmental and somatic dysfunction of thoracic region] 02-17-2020 Episodic Other circulatory disease (5 sources) Low blood pressure; Translations: [Hypotension, unspecified] 07-30-2023 Episodic Other circulatory disease (1 source) Hypotension, unspecified; Translations: [Hypotension, unspecified] 07-30-2023 Episodic Other connective tissue disease (5 sources) Weakness of face muscles; Translations: [Facial weakness] 08-03-2022 Episodic Other connective tissue disease (5 sources) Facial weakness; Translations: [Facial weakness] 08-03-2022 Episodic Other connective tissue disease (2 sources) Recurrent falls ; Translations: [Repeated falls] 09-21-2024 Episodic Other gastrointestinal disorders (15 sources) Dysphagia; Translations: [Dysphagia, unspecified] 08-11-2022 Episodic Other infections; including parasitic (1 source) Unspecified infectious disease; Translations: [Unspecified infectious disease] Onset: Episodic Other injuries and conditions due to external causes (15 sources) Traumatic hematoma; Translations: [Other injury of unspecified body region, initial encounter] 09-03-2022 Episodic Other injuries and conditions due to external causes (20 sources) Closed injury of head; Translations: [Unspecified injury of head, initial encounter] 09-03-2022 Episodic Other injuries and conditions due to external causes (1 source) Unspecified injury of head, initial encounter; Translations: [Head injury, unspecified] 07-30-2023 Episodic Other lower respiratory disease (16 sources) Hypoxemia; Translations: [Hypoxemia] 07-29-2022 Episodic Other lower respiratory disease (7 sources) Hypoxemia; Translations: [Hypoxemia] 07-29-2022 Episodic Other lower respiratory disease (9 sources) Hypoxia; Translations: [Hypoxemia] 07-30-2023 Episodic Other lower respiratory disease (3 sources) Single lobe lung infiltrate; Translations: [Other nonspecific abnormal finding of lung field] 08-27-2024 Episodic Other nervous system disorders (9 sources) Disorder of brain; Translations: [Encephalopathy, unspecified] 01-12-2024 Chronic Other nervous system disorders (1 source) Other encephalopathy; Translations: [Other encephalopathy] Onset: 5 Chronic Other nervous system disorders (1 source) Encephalopathy, unspecified; Translations: [Encephalopathy, unspecified] Onset: 4 Chronic Other nervous system disorders (11 sources) Toxic metabolic encephalopathy; Translations: [Toxic metabolic [...] Onset: 4 07-29-2022 Episodic Pulmonary heart disease (6 sources) Pulmonary embolism; Translations: [Other pulmonary embolism without acute cor pulmonale] 07-30-2023 Episodic Residual codes; unclassified (1 source) Altered mental status; Translations: [Altered mental status, unspecified] 11-01-2022 Episodic Residual codes; unclassified (1 source) Altered mental status, unspecified; Translations: [Altered mental status] 11-01-2022 Episodic Residual codes; unclassified (2 sources) Confusional state; Translations: [Disorientation, unspecified] 09-21-2024 Episodic Respiratory failure; insufficiency; arrest (adult) (20 sources) Respiratory failure; Translations: [Respiratory failure, unspecified, unspecified whether with hypoxia or hypercapnia] 07-29-2022 Episodic Septicemia (except in labor) (3 sources) Sepsis; Translations: [Sepsis, unspecified organism] 08-27-2024 Episodic Spondylosis; intervertebral disc disorders; other back problems (20 sources) Chronic low back pain; Translations: [Chronic low back pain] 01-23-2020 Episodic Comment on above: Has electrical stimu lator Sprains and strains (15 sources) Strain of neck muscle; Translations: [Strain of muscle, fascia and tendon at neck level, initial encounter] 09-03-2022 Episodic Substance-related disorders (1 source) Opioid dependence, uncomplicated; Translations: [Opioid dependence, uncomplicated] Onset: Chronic Superficial injury; contusion (12 sources) Contusion of lower back; Translations: [Contusion of lower back and pelvis, initial encounter] 09-06-2023 Episodic Urinary tract infections (4 sources) Acute urinary tract infection; Translations: [Urinary tract infection, site not specified] 01-03-2024 Episodic Past or Other Problems Problem Classification Problem Date Documented Da te Episodic/Chronic Other non-traumatic joint disorders (1 source) Pain in right shoulder; Translations: [Pain in right shoulder] Onset: 06-11-2024 Episodic Residual codes; unclassified (1 source) Chills (without fever); Translations: [Chills (without fever)] Onset: 03-20-2024 Episodic Results Test Name Value Interpretation Reference Range Facility Absolute lymphocyte countOrd ered By: Guilherme Collins on 09-21-2024 Lymphocytes Auto (Unsp spec) [#/Vol] 0.90 10*3/uL 0.83-4.51 [facility] Absolute neutrophil countOrd ered By: Guilherme Collins on 09-21-2024 Neutrophils (Bld) [#/Vol] 6.4 10*3/uL 2.0-7.7 [facility] Anion gap in Serum or Plasma Ordered By: Guilherme Collins on 09-21-2024 Anion gap [Moles/Vol] 10 mmol/L 5-15 [facility] [place] Automated lymphocyte count a s percentage of total leukocytesOrdered By: Guilherme Collins on 09-21-2024 Lymphocytes/100 WBC Auto (Unsp spec) 11.2 % Low 19-41 [facility] BUN/creatinine ratioOrdered By: Guilherme Collins on 09-21-2024 Urea nitrogen/Creatinine [Mass ratio] 8.7 mg/mg Low 10-20 [facility] Basophil percentageOrdered B y: Guilherme Collins on 09-21-2024 Basophils/100 WBC (Bld) 0.4 % 0-1 [facility] Bilirubin Test strip Ql (U)O rdered By: Guilherme Collins on 09-21-2024 Bilirubin Ql (U) Negative Negative [facility] Bilirubin, totalOrdered By: Guilherme Collins on 09-21-2024 Bilirubin [Mass/Vol] 0.47 mg/dL 0.00-1.30 [facility] Carbon dioxide, total [Moles /volume] in Central venous bloodOrdered By: Guilherme Collins on 09-21-2024 CO2 [Moles/Vol] 24.7 mmol/L 21.0-32.0 [facility] Chloride assayOrdered By: Mansoor Collins on 09-21-2024 Chloride [Moles/Vol] 105 mmol/L 98-108 [facility] Eosinophil percentageOrdered By: Guilherme Collins on 09-21-2024 Eosinophils/100 WBC (Bld) 0.2 % 0-5 [facility] Erythrocyte distribution wid th ratioOrdered By: Guilherme Collins on 09-21-2024 Erythrocyte distribution width (RBC) [Ratio] 13.8 % 11.6-14.6 [facility] Erythrocyte distribution wid th standard deviationOrdered By: Guilherme Collins on 09-21-2024 Erythrocyte distribution width (RBC) [Ratio] 48.4 fl High 35.1-43.9 [facility] Glomerular filtration rate ( GFR) estimation/1.73 sq m using serum, plasma, or whole bOrdered By: Guilherme Collins on 09-21-2024 GFR/1.73 sq M.predicted among non-blacks MDRD (S/P/Bld) [Vol rate/Area] 61 mL/min/{1.73_m2} >60 [facility] Comment on above: mL/min/1.73m2 CKD-EP I Creatinine Equation (2020) Hematocrit Auto (Bld) [Volum e fraction]Ordered By: Guilherme Collins on 09-21-2024 Hematocrit (Bld) [Volume fraction] 34.9 % Low 37-47 [facility] Hemoglobin measurementOrdere d By: Guilherme Collins on 09-21-2024 Hemoglobin (Bld) [Mass/Vol] 11.4 g/dL Low 12.0-15.0 [facility] Immature granulocytes/100 WB C Auto (Bld)Ordered By: Guilherme Collins on 09-21-2024 Immature granulocytes/100 WBC (Bld) 0.200 % 0.0-0.9 [facility] Comment on above: IG% - Immature Granu locytes (promyelocytes, myelocytes and metamyelocytes) > 1% indicates that a LEFT SHIFT is Present. Influenza virus A and B and SARS-CoV-2 (COVID-19) and Respiratory syncytial virus RNAOrdered By: Guilherme Collins on 09-21-2024 SARS-CoV-2 (COVID-19) RNA ANTIONE+probe Ql (Unsp spec) [facility] Ketones Test strip Ql (U)Ord ered By: Guilherme Collins on 09-21-2024 Ketones Ql (U) Negative Negative [facility] Laboratory - Chemistry and C hemistry - challengeOrdered By: Guilherme Collins on 09-21-2024 AST [Catalytic activity/Vol] 30 U/L <32 [facility] Lactic acid measurementOrder ed By: Guilherme Collins on 09-21-2024 Lactate [Moles/Vol] 1.1 mmol/L 0.0-2.0 [facility] MCV (mean corpuscular volume ) determinationOrdered By: Guilherme Collins on 09-21-2024 MCV (RBC) [Entitic vol] 95.9 fL 81-99 [facility] Mean corpuscular hemoglobin (MCH) determinationOrdered By: Guilherme Collins on 09-21-2024 MCH (RBC) [Entitic mass] 31.3 pg 27.0-32.0 [facility] Mean corpuscular hemoglobin concentration (MCHC) determinationOrdered By: Guilherme Collins on 09-21-2024 MCHC (RBC) [Mass/Vol] 32.7 g/dL 32-36 [facility] Mean platelet volume determi nationOrdered By: Guilherme Collins on 09-21-2024 Platelet mean volume (Bld) [Entitic vol] 10.0 fL 6.2-12.0 [facility] Microscopic analysis of urin e for red blood cells (RBC)Ordered By: Guilherme Collins on 09-21-2024 Microscopic analysis of urine for red blood cells (RBC) 0 SEEN /hpf 0-5 [facility] Monocyte percentageOrdered B y: Guilherme Collins on 09-21-2024 Monocytes/100 WBC (Bld) 8.7 % 0-10 [facility] Mucus LM Ql (Urine sed)Order ed By: Guilherme Collins on 09-21-2024 Mucus Ql (Urine sed) 0 SEEN /hpf [facility] Neutrophil percentageOrdered By: Guilherme Collins on 09-21-2024 Neutrophils/100 WBC (Bld) 79.3 % High 47-70 [facility] Nitrite Test strip Ql (U)Ord ered By: Guilherme Collins on 09-21-2024 Nitrite Ql (U) Negative Negative [facility] Nucleated red blood cell per centageOrdered By: Guilherme Collins on 09-21-2024 Nucleated RBC/100 WBC (Bld) [Ratio] 0 % 0-5 [facility] Platelet countOrdered By: Mansoor Collins on 09-21-2024 Platelets (Bld) [#/Vol] 339 10*3/uL 150-450 [facility] Potassium measurement (mass/ volume)Ordered By: Guilherme Collins on 09-21-2024 Potassium (Unsp spec) [Mass/Vol] 3.8 mmol/L 3.3-5.1 [facility] Comment on above: Hemolysis present, R esults could be affected. Protein Test strip Ql (U)Ord ered By: Guilherme Collins on 09-21-2024 Protein Ql (U) 15 mg/dl High Negative [facility] RBC Auto (Bld) [#/Vol]Ordere d By: Guilherme Collins on 09-21-2024 RBC (Bld) [#/Vol] 3.64 10*6/uL Low 4.2-5.4 [facility] Serum creatinine measurement (mass/volume)Ordered By: Guilherme Collins on 09-21-2024 Creatinine [Mass/Vol] 0.97 mg/dL 0.70-1.20 [facility] Serum globulin measurementOr dered By: Guilherme Collins on 09-21-2024 Globulin (S) [Mass/Vol] 3.1 g/dL 2.2-4.2 [facility] Serum glucose measurement (m ass/volume)Ordered By: Guilherme Collins on 09-21-2024 Glucose [Mass/Vol] 118 mg/dL High 70-99 [facility] Serum or plasma alanine soliz otransferase (ALT) measurementOrdered By: Guilherme Collins on 09-21-2024 ALT [Catalytic activity/Vol] 11 U/L <35 [facility] Serum or plasma albumin rosangela urement (mass/volume)Ordered By: Guilherme Collins on 09-21-2024 Albumin [Mass/Vol] 3.3 g/dL Low 3.4-4.8 [facility] Serum or plasma albumin/glob ulin mass ratioOrdered By: Guilherme Collins on 09-21-2024 Albumin/Globulin [Mass ratio] 1.1 {ratio} 0.9-2.4 [facility] Serum or plasma alkaline faustino sphatase measurementOrdered By: Guilherme Collins on 09-21-2024 ALP [Catalytic activity/Vol] 113 U/L High 35-104 [facility] Serum or plasma calcium rosangela urement (mass/volume)Ordered By: uGilherme Collins on 09-21-2024 Calcium [Mass/Vol] 9.0 mg/dL 7.6-11.0 [facility] Serum or plasma urea nitroge n measurement (mass/volume)Ordered By: Guilherme Collins on 09-21-2024 Urea nitrogen [Mass/Vol] 8 mg/dL 4-19 [facility] Sodium levelOrdered By: Guilherme Collins on 09-21-2024 Sodium [Moles/Vol] 140 mmol/L 133-145 [facility] Squamous epithelial cells de tection in urine sediment by light microscopyOrdered By: Guilherme Collins on 09-21-2024 Epithelial cells.squamous LM Ql (Urine sed) 0 SEEN /hpf 5-10 [facility] [facility] Total proteinOrdered By: Aayush Collins on 09-21-2024 Protein [Mass/Vol] 6.4 g/dL 5.9-8.4 [facility] Urine clarityOrdered By: Aayush Collins on 09-21-2024 Clarity (U) Clear Clear [facility] Urine color determinationOrd ered By: Guilherme Collins on 09-21-2024 Color (U) Yellow Yellow [facility] Urine glucose detectionOrder ed By: Guilherme Collins on 09-21-2024 Glucose Ql (U) Normal mg/dl Normal [facility] Urine leukocyte esterase det ection by dipstickOrdered By: Guilherme Collins on 09-21-2024 Leukocyte esterase Test strip Ql (U) 100 /ul High Negative [facility] Urine pHOrdered By: Guilherme ingram on 09-21-2024 pH (U) 6.0 [pH] 5.0 - 8.0 [facility] Urine sediment bacteria coun t by microscopy (number/high power field)Ordered By: Guilherme Collins on 09-21-2024 Bacteria LM.HPF (Urine sed) [#/Area] 2 /[HPF] None Seen [facility] Urine sediment yeast count b y microscopy (number/high powered field)Ordered By: Guilherme Collins on 09-21-2024 Yeast LM.HPF (Urine sed) [#/Area] 1 /[HPF] None Seen [facility] Urine specific gravity measu rementOrdered By: Guilherme Collins on 09-21-2024 Specific gravity (U) [Rel density] 1.015 1.002-1.03 0 [facility] Urine urobilinogen measureme ntOrdered By: Guilherme Collins on 09-21-2024 Urobilinogen Ql (U) Normal mg/dl Normal [facility] White blood cell (WBC) count Ordered By: Guilherme Collins on 09-21-2024 WBC (Bld) [#/Vol] 8.0 10*3/uL 4.4-11.0 [facility] White blood cell countOrdere d By: Guilherme Collins on 09-21-2024 White blood cell count 0-5 SEEN /hpf 0-5 [facility] Culture, Blood (WB)on 2024 CUB Blood cultures x2, f rom two different sites No growth in 5 days. Normal [facility] Comment on above: Performed By: #### L 801.1543, L505.5000, L801.1541 #### [facility] [address] [place], [address] Basic Metabolic Profile (BMP )on 09-01-2024 BUN Normal 4-19 [facility] Comment on above: Result Comment: Canc elled via OM: Order cancelled - Patient discharged Performed By: #### L 500.2500, L100.0500 #### [facility] [address] [place], [address] BUN/CRE Normal 10-20 [facility] Comment on above: Result Comment: Canc elled via OM: Order cancelled - Patient discharged Performed By: #### L 500.2500, L100.0500 #### [facility] [address] [place], [address] Calcium Normal 7.6-11.0 [facility] Comment on above: Result Comment: Canc elled via OM: Order cancelled - Patient discharged Performed By: #### L 500.2500, L100.0500 #### [facility] [address] [place], [address] CL Normal 98-108 [facility] Comment on above: Result Comment: Canc elled via OM: Order cancelled - Patient discharged Performed By: #### L 500.2500, L100.0500 #### [facility] [address] [place], [address] CO2 Normal 21.0-32.0 [facility] Comment on above: Result Comment: Canc elled via OM: Order cancelled - Patient discharged Performed By: #### L 500.2500, L100.0500 #### [facility] [address] [place], [address] CREAT,SERUM Normal 0.70-1.20 [facility] Comment on above: Result Comment: Canc elled via OM: Order cancelled - Patient discharged Performed By: #### L 500.2500, L100.0500 #### [facility] [address] [place], [address] eGFR Normal >60 [facility] Comment on above: Result Comment: Canc elled via OM: Order cancelled - Patient discharged Performed By: #### L 500.2500, L100.0500 #### [facility] [address] [place], [address] GAP Normal 5-15 [facility] Comment on above: Result Comment: Canc elled via OM: Order cancelled - Patient discharged Performed By: #### L 500.2500, L100.0500 #### [facility] [address] [place], [address] GLU Normal 70-99 [facility] Comment on above: Result Comment: Canc elled via OM: Order cancelled - Patient discharged Performed By: #### L 500.2500, L100.0500 #### [facility] [address] [place], [address] Potassium Normal 3.3-5.1 [facility] Comment on above: Result Comment: Canc elled via OM: Order cancelled - Patient discharged Performed By: #### L 500.2500, L100.0500 #### [facility] [address] [place], [address] Basic Metabolic Profile (BMP) Normal 133-145 [facility] Comment on above: Result Comment: Canc elled via OM: Order cancelled - Patient discharged Performed By: #### L 500.2500, L100.0500 #### [facility] [address] [place], [address] CBC-Complete Blood Cnt No Di ffon 09-01-2024 HCT Normal 37-47 [facility] Comment on above: Result Comment: Canc elled via OM: Order cancelled - Patient discharged Performed By: #### L 500.2500, L100.0500 #### [facility] [address] [place], [address] HGB Normal 12.0-15.0 [facility] Comment on above: Result Comment: Canc elled via OM: Order cancelled - Patient discharged Performed By: #### L 500.2500, L100.0500 #### [facility] [address] [place], [address] MCH Normal 27.0-32.0 [facility] Comment on above: Result Comment: Canc elled via OM: Order cancelled - Patient discharged Performed By: #### L 500.2500, L100.0500 #### [facility] [address] [place], [address] MCHC Normal 32-36 [facility] Comment on above: Result Comment: Canc elled via OM: Order cancelled - Patient discharged Performed By: #### L 500.2500, L100.0500 #### [facility] [address] [place], [address] MCV Normal 81-99 [facility] Comment on above: Result Comment: Canc elled via OM: Order cancelled - Patient discharged Performed By: #### L 500.2500, L100.0500 #### [facility] [address] [place], [address] PLT Normal 150-450 [facility] Comment on above: Result Comment: Canc elled via OM: Order cancelled - Patient discharged Performed By: #### L 500.2500, L100.0500 #### [facility] [address] [place], [address] RBC Normal 4.2-5.4 [facility] Comment on above: Result Comment: Canc elled via OM: Order cancelled - Patient discharged Performed By: #### L 500.2500, L100.0500 #### [facility] [address] [place], [address] RDW CV Normal 11.6-14.6 [facility] Comment on above: Result Comment: Canc elled via OM: Order cancelled - Patient discharged Performed By: #### L 500.2500, L100.0500 #### [facility] [address] [place], [address] RDW SD Normal 35.1-43.9 [facility] Comment on above: Result Comment: Canc elled via OM: Order cancelled - Patient discharged Performed By: #### L 500.2500, L100.0500 #### [facility] [address] [place], [address] WBC Normal 4.4-11.0 [facility] Comment on above: Result Comment: Canc elled via OM: Order cancelled - Patient discharged Performed By: #### L 500.2500, L100.0500 #### [facility] [address] [place], [address] Basic Metabolic Profile (BMP )on 08-31-2024 BUN Normal 4-19 [facility] Comment on above: Result Comment: Canc elled via OM: Order cancelled - Patient discharged Performed By: #### L 100.0500, L500.2500 ####[facility] [address] [place], [address] BUN/CRE Normal 10-20 [facility] Comment on above: Result Comment: Canc elled via OM: Order cancelled - Patient discharged Performed By: #### L 100.0500, L500.2500 ####[facility] [address] [place], [address] Calcium Normal 7.6-11.0 [facility] Comment on above: Result Comment: Canc elled via OM: Order cancelled - Patient discharged Performed By: #### L 100.0500, L500.2500 ####[facility] [address] [place], [address] CL Normal 98-108 [facility] Comment on above: Result Comment: Canc elled via OM: Order cancelled - Patient discharged Performed By: #### L 100.0500, L500.2500 ####[facility] [address] [place], [address] CO2 Normal 21.0-32.0 [facility] Comment on above: Result Comment: Canc elled via OM: Order cancelled - Patient discharged Performed By: #### L 100.0500, L500.2500 ####[facility] [address] [place], [address] CREAT,SERUM Normal 0.70-1.20 [facility] Comment on above: Result Comment: Canc elled via OM: Order cancelled - Patient discharged Performed By: #### L 100.0500, L500.2500 ####[facility] [address] [place], [address] eGFR Normal >60 [facility] Comment on above: Result Comment: Canc elled via OM: Order cancelled - Patient discharged Performed By: #### L 100.0500, L500.2500 ####[facility] [address] [place], [address] GAP Normal 5-15 [facility] Comment on above: Result Comment: Canc elled via OM: Order cancelled - Patient discharged Performed By: #### L 100.0500, L500.2500 ####[facility] [address] [place], [address] GLU Normal 70-99 [facility] Comment on above: Result Comment: Canc elled via OM: Order cancelled - Patient discharged Performed By: #### L 100.0500, L500.2500 ####[facility] [address] [place], [address] Potassium Normal 3.3-5.1 [facility] Comment on above: Result Comment: Canc elled via OM: Order cancelled - Patient discharged Performed By: #### L 100.0500, L500.2500 ####[facility] [address] [place], [address] Basic Metabolic Profile (BMP) Normal 133-145 [facility] Comment on above: Result Comment: Canc elled via OM: Order cancelled - Patient discharged Performed By: #### L 100.0500, L500.2500 ####[facility] [address] [place], [address] CBC-Complete Blood Cnt No Di ffon 08-31-2024 HCT Normal 37-47 [facility] Comment on above: Result Comment: Canc elled via OM: Order cancelled - Patient discharged Performed By: #### L 100.0500, L500.2500 ####[facility] [address] [place], [address] HGB Normal 12.0-15.0 [facility] Comment on above: Result Comment: Canc elled via OM: Order cancelled - Patient discharged Performed By: #### L 100.0500, L500.2500 ####[facility] [address] [place], [address] MCH Normal 27.0-32.0 [facility] Comment on above: Result Comment: Canc elled via OM: Order cancelled - Patient discharged Performed By: #### L 100.0500, L500.2500 ####[facility] [address] [place], [address] MCHC Normal 32-36 [facility] Comment on above: Result Comment: Canc elled via OM: Order cancelled - Patient discharged Performed By: #### L 100.0500, L500.2500 ####[facility] [address] [place], [address] MCV Normal 81-99 [facility] Comment on above: Result Comment: Canc elled via OM: Order cancelled - Patient discharged Performed By: #### L 100.0500, L500.2500 ####[facility] [address] [place], [address] PLT Normal 150-450 [facility] Comment on above: Result Comment: Canc elled via OM: Order cancelled - Patient discharged Performed By: #### L 100.0500, L500.2500 ####[facility] [address] [place], [address] RBC Normal 4.2-5.4 [facility] Comment on above: Result Comment: Canc elled via OM: Order cancelled - Patient discharged Performed By: #### L 100.0500, L500.2500 ####[facility] [address] [place], [address] RDW CV Normal 11.6-14.6 [facility] Comment on above: Result Comment: Canc elled via OM: Order cancelled - Patient discharged Performed By: #### L 100.0500, L500.2500 ####[facility] [address] [place], [address] RDW SD Normal 35.1-43.9 [facility] Comment on above: Result Comment: Canc elled via OM: Order cancelled - Patient discharged Performed By: #### L 100.0500, L500.2500 ####[facility] [address] [place], [address] WBC Normal 4.4-11.0 [facility] Comment on above: Result Comment: Canc elled via OM: Order cancelled - Patient discharged Performed By: #### L 100.0500, L500.2500 ####[facility] [address] [place], [address] Basic Metabolic Profile (BMP )on 08-30-2024 BUN Normal 4-19 [facility] Comment on above: Result Comment: Canc elled via OM: Order cancelled - Patient discharged Performed By: #### L 500.2500, L100.0500 ####[facility] [address] [place], [address] BUN/CRE Normal 10-20 [facility] Comment on above: Result Comment: Canc elled via OM: Order cancelled - Patient discharged Performed By: #### L 500.2500, L100.0500 ####[facility] [address] [place], [address] Calcium Normal 7.6-11.0 [facility] Comment on above: Result Comment: Canc elled via OM: Order cancelled - Patient discharged Performed By: #### L 500.2500, L100.0500 ####[facility] [address] [place], [address] CL Normal 98-108 [facility] Comment on above: Result Comment: Canc elled via OM: Order cancelled - Patient discharged Performed By: #### L 500.2500, L100.0500 ####[facility] [address] [place], [address] CO2 Normal 21.0-32.0 [facility] Comment on above: Result Comment: Canc elled via OM: Order cancelled - Patient discharged Performed By: #### L 500.2500, L100.0500 ####[facility] [address] [place], [address] CREAT,SERUM Normal 0.70-1.20 [facility] Comment on above: Result Comment: Canc elled via OM: Order cancelled - Patient discharged Performed By: #### L 500.2500, L100.0500 ####[facility] [address] [place], [address] eGFR Normal >60 [facility] Comment on above: Result Comment: Canc elled via OM: Order cancelled - Patient discharged Performed By: #### L 500.2500, L100.0500 ####[facility] [address] [place], [address] GAP Normal 5-15 [facility] Comment on above: Result Comment: Canc elled via OM: Order cancelled - Patient discharged Performed By: #### L 500.2500, L100.0500 ####[facility] [address] [place], [address] GLU Normal 70-99 [facility] Comment on above: Result Comment: Canc elled via OM: Order cancelled - Patient discharged Performed By: #### L 500.2500, L100.0500 ####[facility] [address] [place], [address] Potassium Normal 3.3-5.1 [facility] Comment on above: Result Comment: Canc elled via OM: Order cancelled - Patient discharged Performed By: #### L 500.2500, L100.0500 ####[facility] [address] [place], [address] Basic Metabolic Profile (BMP) Normal 133-145 [facility] Comment on above: Result Comment: Canc elled via OM: Order cancelled - Patient discharged Performed By: #### L 500.2500, L100.0500 ####[facility] [address] [place], [address] CBC-Complete Blood Cnt No Di ffon 08-30-2024 HCT Normal 37-47 [facility] Comment on above: Result Comment: Canc elled via OM: Order cancelled - Patient discharged Performed By: #### L 500.2500, L100.0500 ####[facility] [address] [place], [address] HGB Normal 12.0-15.0 [facility] Comment on above: Result Comment: Canc elled via OM: Order cancelled - Patient discharged Performed By: #### L 500.2500, L100.0500 ####[facility] [address] [place], [address] MCH Normal 27.0-32.0 [facility] Comment on above: Result Comment: Canc elled via OM: Order cancelled - Patient discharged Performed By: #### L 500.2500, L100.0500 ####[facility] [address] [place], [address] MCHC Normal 32-36 [facility] Comment on above: Result Comment: Canc elled via OM: Order cancelled - Patient discharged Performed By: #### L 500.2500, L100.0500 ####[facility] [address] [place], [address] MCV Normal 81-99 [facility] Comment on above: Result Comment: Canc elled via OM: Order cancelled - Patient discharged Performed By: #### L 500.2500, L100.0500 ####[facility] [address] [place], [address] PLT Normal 150-450 [facility] Comment on above: Result Comment: Canc elled via OM: Order cancelled - Patient discharged Performed By: #### L 500.2500, L100.0500 ####[facility] [address] [place], [address] RBC Normal 4.2-5.4 [facility] Comment on above: Result Comment: Canc elled via OM: Order cancelled - Patient discharged Performed By: #### L 500.2500, L100.0500 ####[facility] [address] [place], [address] RDW CV Normal 11.6-14.6 [facility] Comment on above: Result Comment: Canc elled via OM: Order cancelled - Patient discharged Performed By: #### L 500.2500, L100.0500 ####[facility] [address] [place], [address] RDW SD Normal 35.1-43.9 [facility] Comment on above: Result Comment: Canc elled via OM: Order cancelled - Patient discharged Performed By: #### L 500.2500, L100.0500 ####[facility] [address] [place], [address] WBC Normal 4.4-11.0 [facility] Comment on above: Result Comment: Canc elled via OM: Order cancelled - Patient discharged Performed By: #### L 500.2500, L100.0500 ####[facility] [address] [place], [address] Urine Cultureon 08-30-2024 URC Yeast, not [place] a lbicans [place] Count 11,000-25,000 Normal [facility] Comment on above: Performed By: #### L 801.1543, L505.5000, L801.1541 #### [facility] [address] [place], [address] Anion gap in Serum or Plasma Ordered By: Christofer Espino on 08-29-2024 Anion gap [Moles/Vol] 11 mmol/L 5-15 [facility] BUN/creatinine ratioOrdered By: Christofer Espino on 08-29-2024 Urea nitrogen/Creatinine [Mass ratio] 11.8 mg/mg - [facility] Basic Metabolic Profile (BMP )on 08-29-2024 BUN/CRE 11.8 RATIO Normal - [facility] Comment on above: Performed By: #### L 500.2500, L100.0500 ####[facility] [address] [place], [address] Calcium [Mass/Vol] 8.3 mg/dL Normal 7.6-11.0 [facility] Comment on above: Performed By: #### L 500.2500, L100.0500 ####[facility] [address] [place], [address] Chloride [Moles/Vol] 109 mmol/L High 98-108 [facility] Comment on above: Performed By: #### L 500.2500, L100.0500 ####[facility] [address] [place], [address] CO2 [Moles/Vol] 20.9 mmol/L Low 21.0-32.0 [facility] Comment on above: Performed By: #### L 500.2500, L100.0500 ####[facility] [address] [place], [address] Creatinine [Mass/Vol] 0.73 mg/dL Normal 0.70-1.20 [facility] Comment on above: Performed By: #### L 500.2500, L100.0500 ####[facility] [address] [place], [address] ECRCL 47.71 ml/min Low 50-250 [facility] Comment on above: Performed By: #### L 500.2500, L100.0500 ####[facility] [address] [place], [address] GAP 11 Normal 5-15 [facility] Comment on above: Performed By: #### L 500.2500, L100.0500 ####[facility] [address] [place], [address] GFR/1.73 sq M.predicted among non-blacks MDRD (S/P/Bld) [Vol rate/Area] 86 mL/min/{1.73_m2} Normal >60 [facility] Comment on above: Result Comment: mL/m in/1.73m2 CKD-EPI Creatinine Equation (2020) Performed By: #### L 500.2500, L100.0500 ####[facility] [address] [place], [address] Glucose [Mass/Vol] 75 mg/dL Normal 70-99 [facility] Comment on above: Performed By: #### L 500.2500, L100.0500 ####[facility] [address] [place], [address] Potassium [Moles/Vol] 3.6 mmol/L Normal 3.3-5.1 [facility] Comment on above: Performed By: #### L 500.2500, L100.0500 ####[facility] [address] [place], [address] Sodium [Moles/Vol] 141 mmol/L Normal 133-145 [facility] Comment on above: Performed By: #### L 500.2500, L100.0500 ####[facility] [address] [place], [address] Urea nitrogen [Mass/Vol] 9 mg/dL Normal 4-19 [facility] Comment on above: Performed By: #### L 500.2500, L100.0500 ####[facility] [address] [place], [address] CBC-Complete Blood Cnt No Hilda malagon 08-29-2024 Erythrocyte distribution width (RBC) [Ratio] 13.2 % Normal 11.6-14.6 [facility] Comment on above: Performed By: #### L 500.2500, L100.0500 ####[facility] [address] [place], [address] Hematocrit (Bld) [Volume fraction] 29.9 % Low 37-47 [facility] Comment on above: Performed By: #### L 500.2500, L100.0500 ####[facility] [address] [place], [address] Hemoglobin (Bld) [Mass/Vol] 10.0 g/dL Low 12.0-15.0 [facility] Comment on above: Performed By: #### L 500.2500, L100.0500 ####[facility] [address] [place], [address] MCH (RBC) [Entitic mass] 31.6 pg Normal 27.0-32.0 [facility] Comment on above: Performed By: #### L 500.2500, L100.0500 ####[facility] [address] [place], [address] MCHC (RBC) [Mass/Vol] 33.4 g/dL Normal 32-36 [facility] Comment on above: Performed By: #### L 500.2500, L100.0500 ####[facility] [address] [place], [address] MCV (RBC) [Entitic vol] 94.6 fL Normal 81-99 [facility] Comment on above: Performed By: #### L 500.2500, L100.0500 ####[facility] [address] [place], [address] Platelet mean volume (Bld) [Entitic vol] 9.7 fL Normal 6.2-12.0 [facility] Comment on above: Performed By: #### L 500.2500, L100.0500 ####[facility] [address] [place], [address] Platelets (Bld) [#/Vol] 284 10*3/uL Normal 150-450 [facility] Comment on above: Performed By: #### L 500.2500, L100.0500 ####[facility] [address] [place], [address] RBC (Bld) [#/Vol] 3.16 10*6/uL Low 4.2-5.4 [facility] Comment on above: Performed By: #### L 500.2500, L100.0500 ####[facility] [address] [place], [address] RDW SD 45.9 fl High 35.1-43.9 [facility] Comment on above: Performed By: #### L 500.2500, L100.0500 ####[facility] [address] [place], [address] WBC (Bld) [#/Vol] 4.4 10*3/uL Normal 4.4-11.0 [facility] Comment on above: Performed By: #### L 500.2500, L100.0500 ####[facility] [address] [place], [address] Carbon dioxide, total [Moles /volume] in Central venous bloodOrdered By: Christofer Espino on 08-29-2024 CO2 [Moles/Vol] 20.9 mmol/L Low 21.0-32.0 [facility] Chloride assayOrdered By: Jeffrey Espino on 08-29-2024 Chloride [Moles/Vol] 109 mmol/L High 98-108 [facility] Discharge Instructionon 08-17 Discharge Instruction [facility] Medical Records Department [address] [place] [address] Instructions for Home/Discharge Instructions 08/29/24 1250 MR#: [id number] Acct: [id number] Name: CAROL ZARAGOZA Rep #: [id number] : 1950 74 From: Christofer Espino DO [...] can be placed): Home, Self Care 08/29/24 1252 Christofer Espino DO CC: Dr. Harish Luis MD Signed Normal [facility] Erythrocyte distribution wid th ratioOrdered By: Christofer Espino on 08-29-2024 Erythrocyte distribution width (RBC) [Ratio] 13.2 % 11.6-14.6 [facility] Erythrocyte distribution wid th standard deviationOrdered By: Christofer Espino on 08-29-2024 Erythrocyte distribution width (RBC) [Ratio] 45.9 fl High 35.1-43.9 [facility] Glomerular filtration rate ( GFR) estimation/1.73 sq m using serum, plasma, or whole bOrdered By: Christofer Espino on 08-29-2024 GFR/1.73 sq M.predicted among non-blacks MDRD (S/P/Bld) [Vol rate/Area] 86 mL/min/{1.73_m2} >60 [facility] Comment on above: mL/min/1.73m2 CKD-EP I Creatinine Equation (2020) Hematocrit Auto (Bld) [Volum e fraction]Ordered By: Christofer Espino on 08-29-2024 Hematocrit (Bld) [Volume fraction] 29.9 % Low 37-47 [facility] Hemoglobin measurementOrdere d By: Christofer Espino on 08-29-2024 Hemoglobin (Bld) [Mass/Vol] 10.0 g/dL Low 12.0-15.0 [facility] MCV (mean corpuscular volume ) determinationOrdered By: Christofer Espino on 08-29-2024 MCV (RBC) [Entitic vol] 94.6 fL 81-99 [facility] Mean corpuscular hemoglobin (MCH) determinationOrdered By: Christofer Espino on 08-29-2024 MCH (RBC) [Entitic mass] 31.6 pg 27.0-32.0 [facility] Mean corpuscular hemoglobin concentration (MCHC) determinationOrdered By: Christofer Espino on 08-29-2024 MCHC (RBC) [Mass/Vol] 33.4 g/dL 32-36 [facility] Mean platelet volume determi nationOrdered By: Christofer Espino on 08-29-2024 Platelet mean volume (Bld) [Entitic vol] 9.7 fL 6.2-12.0 [facility] Platelet countOrdered By: Jeffrey Espino on 08-29-2024 Platelets (Bld) [#/Vol] 284 10*3/uL 150-450 [facility] Potassium measurement (mass/ volume)Ordered By: Christofer Espino on 08-29-2024 Potassium (Unsp spec) [Mass/Vol] 3.6 mmol/L 3.3-5.1 [facility] RBC Auto (Bld) [#/Vol]Ordere d By: Christofer Espino on 08-29-2024 RBC (Bld) [#/Vol] 3.16 10*6/uL Low 4.2-5.4 [facility] Serum creatinine measurement (mass/volume)Ordered By: Christofer Espino on 08-29-2024 Creatinine [Mass/Vol] 0.73 mg/dL 0.70-1.20 [facility] Serum glucose measurement (m ass/volume)Ordered By: Christofer Espino on 08-29-2024 Glucose [Mass/Vol] 75 mg/dL 70-99 [facility] Serum or plasma calcium rosangela urement (mass/volume)Ordered By: Christofer Espino on 08-29-2024 Calcium [Mass/Vol] 8.3 mg/dL 7.6-11.0 [facility] Serum or plasma urea nitroge n measurement (mass/volume)Ordered By: Christofer Espino on 08-29-2024 Urea nitrogen [Mass/Vol] 9 mg/dL 4-19 [facility] Sodium levelOrdered By: Ezekiel Espino on 08-29-2024 Sodium [Moles/Vol] 141 mmol/L 133-145 [facility] White blood cell (WBC) count Ordered By: Christofer Espino on 08-29-2024 WBC (Bld) [#/Vol] 4.4 10*3/uL 4.4-11.0 [facility] Basic Metabolic Profile (BMP )on 08-28-2024 BUN/CRE 11.6 RATIO Normal 10-20 [facility] Comment on above: Performed By: #### L 500.2500, L100.0500 ####[facility] [address] [place], [address] Calcium [Mass/Vol] 7.7 mg/dL Normal 7.6-11.0 [facility] Comment on above: Performed By: #### L 500.2500, L100.0500 ####[facility] [address] [place], [address] Chloride [Moles/Vol] 109 mmol/L High 98-108 [facility] Comment on above: Performed By: #### L 500.2500, L100.0500 ####[facility] [address] [place], [address] CO2 [Moles/Vol] 20.4 mmol/L Low 21.0-32.0 [facility] Comment on above: Performed By: #### L 500.2500, L100.0500 ####[facility] [address] [place], [address] Creatinine [Mass/Vol] 0.78 mg/dL Normal 0.70-1.20 [facility] Comment on above: Performed By: #### L 500.2500, L100.0500 ####[facility] [address] [place], [address] ECRCL 47.71 ml/min Low 50-250 [facility] Comment on above: Performed By: #### L 500.2500, L100.0500 ####[facility] [address] [place], [address] GAP 11 Normal 5-15 [facility] Comment on above: Performed By: #### L 500.2500, L100.0500 ####[facility] [address] [place], [address] GFR/1.73 sq M.predicted among non-blacks MDRD (S/P/Bld) [Vol rate/Area] 79 mL/min/{1.73_m2} Normal >60 [facility] Comment on above: Result Comment: mL/m in/1.73m2 CKD-EPI Creatinine Equation (2020) Performed By: #### L 500.2500, L100.0500 ####[facility] [address] [place], [address] Glucose [Mass/Vol] 70 mg/dL Normal 70-99 [facility] Comment on above: Performed By: #### L 500.2500, L100.0500 ####[facility] [address] [place], [address] Potassium [Moles/Vol] 3.3 mmol/L Normal 3.3-5.1 [facility] Comment on above: Performed By: #### L 500.2500, L100.0500 ####[facility] [address] [place], [address] Sodium [Moles/Vol] 140 mmol/L Normal 133-145 [facility] Comment on above: Performed By: #### L 500.2500, L100.0500 ####[facility] [address] [place], [address] Urea nitrogen [Mass/Vol] 9 mg/dL Normal 4-19 [facility] Comment on above: Performed By: #### L 500.2500, L100.0500 ####[facility] [address] [place], [address] CBC-Complete Blood Cnt No Di ffon 08-28-2024 Erythrocyte distribution width (RBC) [Ratio] 13.4 % Normal 11.6-14.6 [facility] Comment on above: Performed By: #### L 500.2500, L100.0500 #### [facility] [address] [place], [address] Hematocrit (Bld) [Volume fraction] 29.4 % Low 37-47 [facility] Comment on above: Performed By: #### L 500.2500, L100.0500 #### [facility] [address] [place], [address] Hemoglobin (Bld) [Mass/Vol] 9.7 g/dL Low 12.0-15.0 [facility] Comment on above: Performed By: #### L 500.2500, L100.0500 #### [facility] [address] [place], [address] MCH (RBC) [Entitic mass] 31.7 pg Normal 27.0-32.0 [facility] Comment on above: Performed By: #### L 500.2500, L100.0500 #### [facility] [address] [place], [address] MCHC (RBC) [Mass/Vol] 33.0 g/dL Normal 32-36 [facility] Comment on above: Performed By: #### L 500.2500, L100.0500 #### [facility] [address] [place], [address] MCV (RBC) [Entitic vol] 96.1 fL Normal 81-99 [facility] Comment on above: Performed By: #### L 500.2500, L100.0500 #### [facility] [address] [place], [address] Platelet mean volume (Bld) [Entitic vol] 9.8 fL Normal 6.2-12.0 [facility] Comment on above: Performed By: #### L 500.2500, L100.0500 #### [facility] [address] [place], [address] Platelets (Bld) [#/Vol] 278 10*3/uL Normal 150-450 [facility] Comment on above: Performed By: #### L 500.2500, L100.0500 #### [facility] [address] [place], [address] RBC (Bld) [#/Vol] 3.06 10*6/uL Low 4.2-5.4 [facility] Comment on above: Performed By: #### L 500.2500, L100.0500 #### [facility] [address] [place], [address] RDW SD 47.2 fl High 35.1-43.9 [facility] Comment on above: Performed By: #### L 500.2500, L100.0500 #### [facility] [address] [place], [address] WBC (Bld) [#/Vol] 4.8 10*3/uL Normal 4.4-11.0 [facility] Comment on above: Performed By: #### L 500.2500, L100.0500 #### [facility] [address] [place], [address] Electrocardiogram reportOrde red By: Mil Snyder on 08-28-2024 EKG study [facility] Cardiovascular Services [address] [place] [address] 12 Lead EKG 08/27/24 1633 MR#: [id number] Acct: [id number] Name: CAROL ZARAGOZA Rep #:[id number] : 1950 74 From: Mil banerjee MD Attending Dr: Dr. Christofer Espino DO Status: ADM IN Ordering Dr: Huber Ballard MD Date: 08/27 Location: [facility] Sex: F C Admitted: 08/27/24 Test Reason : Blood Pressure : */* mmHG Vent. Rate : 111 BPM Atrial Rate : 111 BPM P-R Int : 144 ms QRS Dur : 68 ms QT Int : 318 ms P-R-T Axes : 67 -29 63 degrees QTcB Int : 432 ms Sinus tachycardia Low voltage QRS Borderline ECG Confirmed by Mil Snyder ([id number]), newspaper copy editor GEGE COSTELLO ([id number]) on 0:15:17 AM Referred By: Confirmed By: Mil Snyder 08/28/24 1015 Date _ Mil Snyder MD CC: Dr. Christofer Espino DO; Dr. Harish Luis MD; Dr. Huber Ballard MD ~ Signed [facility] Other Phone: Legionella Antigen Urineon 0 08-28-2024 LEGU Legionella Antigen r esult interpretation: L pneumo Ag Ur Ql Negative Presumptive negative for Legionella pneumophila serogroup 1 antigen in urine, suggesting no recent or current infection. Legionella Ag, Urine Negative (See interpretation below) Normal [facility] Comment on above: Performed By: #### L 801.1543, L505.5000, L801.1541 #### [facility] [address] [place], [address] Magnesiumon 08-28-2024 Magnesium [Mass/Vol] 1.9 mg/dL Normal 1.5-2.2 [facility] Comment on above: Performed By: #### L 801.1543, L505.5000, L801.1541 #### [facility] [address] [facility] [place], [address] Magnesium measurement (mass/ volume)Ordered By: Christofer Espino on 08-28-2024 Magnesium (Unsp spec) [Mass/Vol] 1.9 mg/dL 1.5-2.2 [facility] Phosphoruson 08-28-2024 Phosphate [Mass/Vol] 2.7 mg/dL Normal 2.7-4.5 [facility] Comment on above: Performed By: #### L 801.1543, L505.5000, L801.1541 #### [facility] [address] [place], [place], [address] Strep pneumoniae Antig(UR,CS F)on 08-28-2024 STPAG [] Negative Urine Presumptive negative for pneumococcal pneumonia, suggesting no current or recent pneumococcal infection. Infection due to S pneumoniae cannot be ruled out since the antigen present in the sample may be below the detection limit of the test. Strep pneumo Test Negative URINE (See interpretation below) Normal [facility] Comment on above: Performed By: #### L 801.1543, L505.5000, L801.1541 #### [facility] [address] [place], [place], [address] 12 Lead EKGon 08-27-2024 12 Lead EKG [facility] Cardiovascular Services [address] [place] [address] 12 Lead EKG 08/27/24 1633 MR#: [id number] Acct: [id number] Name: CAROL ZARAGOZA Rep #: [id number] : 1950 74 From: Mil Snyder MD Attending Dr: Dr. Christofer Espino, DO Status : ADM IN Ordering Dr: Huber Ballard MD Date: 08/27/24 Location: [facility] Sex: F C Admitted: 08/27/24 Test Reason : Blood Pressure : */* mmHG Vent. Rate : 111 BPM Atrial Rate : 111 BPM P-R Int : 144 ms QRS Dur : 68 ms QT Int : 318 ms P-R-T Axes : 67 -29 63 degrees QTcB Int : 432 ms Sinus tachycardia Low voltage QRS Borderline ECG Confirmed by Mil Snyder ([id number]), newspaper copy editor GEGE COSTELLO ([id number]) on 08/28/2024 10:15:17 AM Referred By: Confirmed By: Mil Snyder 08/28/24 1015 Date Mil Snyder MD CC: Dr. Christofer Espino DO; Dr. Harish Luis MD; Dr. Huber Ballard MD Signed Normal [facility] Absolute lymphocyte countOrd ered By: Huber Ballard on 08-27-2024 Lymphocytes Auto (Unsp spec) [#/Vol] 0.45 10*3/uL Low 0.83-4.51 [facility] Absolute neutrophil countOrd ered By: Huberyandel Ballard on 08-27-2024 Neutrophils (Bld) [#/Vol] 5.6 10*3/uL 2.0-7.7 [facility] Activated partial thrombopla stin time (aPTT) in platelet poor plasma by coagulation aOrdered By: Huber Ballard on 08-27-2024 aPTT Coag (PPP) [Time] 36.4 s High 24.1-36.2 [facility] Anion gap in Serum or Plasma Ordered By: Huber Ballard on 08-27-2024 Anion gap [Moles/Vol] 11 mmol/L 5-15 [facility] Automated blood erythrocyte countOrdered By: Huber Ballard on 08-27-2024 RBC (Bld) [#/Vol] 3.82 10*6/uL Low 4.2-5.4 [facility] Comment on above: Performed By: #### L 801.1543, L505.5000, L801.1541 #### [facility] [address] [place], [address] Automated blood hematocrit ( percentage)Ordered By: Huber Ballard on 08-27-2024 Hematocrit (Bld) [Volume fraction] 36.2 % Low 37-47 [facility] Comment on above: Performed By: #### L 801.1543, L505.5000, L801.1541 #### [facility] [address] [place], [place], [address] Automated lymphocyte count a s percentage of total leukocytesOrdered By: Huber Ballard on 08-27-2024 Lymphocytes/100 WBC Auto (Unsp spec) 7.0 % Low 19-41 [facility] BUN/creatinine ratioOrdered By: Huber Ballard on 08-27-2024 Urea nitrogen/Creatinine [Mass ratio] 12.2 mg/mg 10-20 [facility] Basophil percentageOrdered B y: Huber Ballard on 08-27-2024 Basophils/100 WBC (Bld) 0.5 % 0-1 [facility] Comment on above: Performed By: #### L 801.1543, L505.5000, L801.1541 #### [facility] [address] [place], [place], [address] Bilirubin Test strip Ql (U)O rdered By: Huber Ballard on 08-27-2024 Bilirubin Ql (U) Negative Negative [facility] Bilirubin, totalOrdered By: Huber Ballard on 08-27-2024 Bilirubin [Mass/Vol] 0.24 mg/dL 0.00-1.30 [facility] Comment on above: Performed By: #### L 801.1543, L505.5000, L801.1541 #### [facility] [address] [place], [place], [address] Blood cultureOrdered By: Huber Ballard on 08-27-2024 Bacteria identified Cx Nom (Bld) No growth in 5 days. [facility] CBC W/Diff, Automatedon 08-17 Absolute Lymph 0.45 X10 3/uL Low 0.83-4.51 [facility] Comment on above: Performed By: #### L 801.1543, L505.5000, L801.1541 #### [facility] [address] [place], [address] Absolute Neut 5.6 X10 3/uL Normal 2.0-7.7 [facility] Comment on above: Performed By: #### L 801.1543, L505.5000, L801.1541 #### [facility] [address] [place], [address] IG% 0.300 Normal 0.0-0.9 [facility] Comment on above: Result Comment: IG% - Immature Granulocytes (promyelocytes, myelocytes and metamyelocytes) > 1% indicates that a LEFT SHIFT is Present. Performed By: #### L 801.1543, L505.5000, L801.1541 #### [facility] [address] [place], [address] Lymphocytes/100 WBC (Bld) 7.0 % Low 19-41 [facility] Comment on above: Performed By: #### L 801.1543, L505.5000, L801.1541 #### [facility] [address] [place], [address] Nucleated RBC (Bld) [#/Vol] 0 10*3/uL Normal 0-5 [facility] Comment on above: Performed By: #### L 801.1543, L505.5000, L801.1541 #### [facility] [address] [place], [address] RDW SD 46.5 fl High 35.1-43.9 [facility] Comment on above: Performed By: #### L 801.1543, L505.5000, L801.1541 #### [facility] [address] [place], [address] Carbon dioxide, total [Moles /volume] in Central venous bloodOrdered By: Huber Ballard on 08-27-2024 CO2 [Moles/Vol] 22.4 mmol/L Normal 21.0-32.0 [facility] Comment on above: Performed By: #### L 801.1543, L505.5000, L801.1541 #### [facility] [address] [place], [address] Chest 1 View (Portable)on Chest 1 View (Portable) [facility] Imaging Services [address] [place] [address] Chest 1 View (Portable) MR#: [id number] Acct: [id number] Name: CAROL ZARAGOZA Rep #: [id number] : 1950 F 74 From: Patricia Rivero PCP: Dr. Harish Luis MD Status: REG ER Study: Chest 1 View (Portable) Date of Exam: 08/27/24 Exam# [id number] Ordering Dr: Huber Ballard MD PROCEDURE: CHEST [...] lower lobe. Otherwise grossly unchanged Reading Location: [id number] CC: Dr. Harish Luis MD; Dr. Huber Ballard MD [employer] Winding Operator: Signed Normal [facility] Chloride assayOrdered By: Malcom Ballard on 08-27-2024 Chloride [Moles/Vol] 102 mmol/L Normal 98-108 [facility] Comment on above: Performed By: #### L 801.1543, L505.5000, L801.1541 #### [facility] [address] [place], [address] Comprehensive Metabolic Prof jony 08-27-2024 ALK PHOS 97 U/L Normal 35-104 [facility] Comment on above: Performed By: #### L 801.1543, L505.5000, L801.1541 #### [facility] [address] [place], [address] BUN/CRE 12.2 RATIO Normal 10-20 [facility] Comment on above: Performed By: #### L 801.1543, L505.5000, L801.1541 #### [facility] [address] [place], [address] ECRCL 35.35 ml/min Low 50-250 [facility] Comment on above: Performed By: #### L 801.1543, L505.5000, L801.1541 #### [facility] [address] [place], [address] GAP 11 Normal 5-15 [facility] Comment on above: Performed By: #### L 801.1543, L505.5000, L801.1541 #### [facility] [address] [place], [address] Potassium [Moles/Vol] 4.3 mmol/L Normal 3.3-5.1 [facility] Comment on above: Result Comment: Hemo lysis present, Results??could be affected. ?? Performed By: #### L 801.1543, L505.5000, L801.1541 #### [facility] [address] [place], [address] T PROT 6.6 g/dL Normal 5.9-8.4 [facility] Comment on above: Performed By: #### L 801.1543, L505.5000, L801.1541 #### [facility] [address] [place], [address] Comprehensive Metabolic Prof ilOrdered By: Huber Ballard on 08-27-2024 AST [Catalytic activity/Vol] 53 U/L High <32 [facility] Comment on above: Hemolysis present, R esults could be affected. Result Comment: Hemo lysis present, Results??could be affected. ?? Performed By: #### L 801.1543, L505.5000, L801.1541 #### [facility] [address] [place], [address] Emergency Department Summary on 08-27-2024 Emergency Department Summary [facility] Medical Records Department [address] [place] [address] Emergency Department Summary 08/27/24 MR#: [id number] Acct: [id number] Name: CAROL ZARAGOZA Rep #: [id number] : 1950 74 From: Huber Ballard MD PCP: Dr. Harish Luis MD Status:REG ER Location: ED ADDENDUM by Dr. Huber Ballard MD on 08/27/24 at 1851 Sinus tachycardia rate of 111. CA interval 144 ms cures duration 68 ms. QT duration 218 ms. [place] is normal. She has evidence of low [...] Denies ches (more content not included)... Normal [facility] Eosinophil percentageOrdered By: Huber Ballard on 08-27-2024 Eosinophils/100 WBC (Bld) 0.2 % 0-5 [facility] Comment on above: Performed By: #### L 801.1543, L505.5000, L801.1541 #### [facility] [address] [place], [place], [address] Erythrocyte distribution wid th ratioOrdered By: Huber Ballard on 08-27-2024 Erythrocyte distribution width (RBC) [Ratio] 13.2 % Normal 11.6-14.6 [facility] Comment on above: Performed By: #### L 801.1543, L505.5000, L801.1541 #### [facility] [address] [place], [address] Erythrocyte distribution wid th standard deviationOrdered By: Huber Ballard on 08-27-2024 Erythrocyte distribution width (RBC) [Ratio] 46.5 fl High 35.1-43.9 [facility] Glomerular filtration rate ( GFR) estimation/1.73 sq m using serum, plasma, or whole bOrdered By: Huber Ballard on 08-27-2024 GFR/1.73 sq M.predicted among non-blacks MDRD (S/P/Bld) [Vol rate/Area] 54 mL/min/{1.73_m2} Low >60 [facility] Comment on above: mL/min/1.73m2 CKD-EP I Creatinine Equation (2020) Result Comment: mL/m in/1.73m2 CKD-EPI Creatinine Equation (2020) Performed By: #### L 801.1543, L505.5000, L801.1541 #### [facility] [address] [place], [address] H AND P Exam - Hospitaliston 08-27-2024 H&P Exam - Hospitalist [facility] Medical Records Department [address] [place] [address] H P Exam - Hospitalist 08/27/24 1712 MR#: [id number] Acct: [id number] Name: CAROL ZARAGOZA Rep #: [id number] : 1950 74 From: hCristofer Espino DO PCP: Dr. Harish Luis MD Status:ADM IN Location: [place] [address] HPI - General General Date of Admission: 08/27/24 Date of Service: 08/27/24 Chief Complaint: Fever and cough with confusion HPI Narrative CAROL ZARAGOZA, is a 74 F who presented to [facility] ED on 08/27/2024 with fevers, [...] to tell me that she was at [facility] and that the year was [...] past. Will be admitted for further management. [facility] Medical History (Updated 08/28/24 @ 07:52 by [...] Cardiovascular Car (more content not included)... Normal [facility] Hemoglobin measurementOrdere d By: Huber Ballard on 08-27-2024 Hemoglobin (Bld) [Mass/Vol] 12.1 g/dL Normal 12.0-15.0 [facility] Comment on above: Performed By: #### L 801.1543, L505.5000, L801.1541 #### [facility] [address] [place], [place], [address] Immature granulocytes/100 WB C Auto (Bld)Ordered By: Huber Ballard on 08-27-2024 Immature granulocytes/100 WBC (Bld) 0.300 % 0.0-0.9 [facility] Comment on above: IG% - Immature Granu locytes (promyelocytes, myelocytes and metamyelocytes) > 1% indicates that a LEFT SHIFT is Present. International normalized rat io (INR) calculationOrdered By: Huber Ballard on 08-27-2024 INR Coag (Bld) [Relative time] 1.0 {INR} [facility] Ketones Test strip Ql (U)Ord ered By: Huber Ballard on 08-27-2024 Ketones Ql (U) Negative Negative [facility] Lactic acid measurementOrder ed By: Huber Ballard on 08-27-2024 Lactate [Moles/Vol] 1.1 mmol/L 0.0-2.0 [facility] Comment on above: Order Comment: [id number] TRAMADOL Performed By: #### L 801.1543, L505.5000, L801.1541 #### [facility] [address] [place], [address] MCV (mean corpuscular volume ) determinationOrdered By: Huber Ballard on 08-27-2024 MCV (RBC) [Entitic vol] 94.8 fL Normal 81-99 [facility] Comment on above: Performed By: #### L 801.1543, L505.5000, L801.1541 #### [facility] [address] [place], [address] Mean corpuscular hemoglobin (MCH) determinationOrdered By: Huber Ballard on 08-27-2024 MCH (RBC) [Entitic mass] 31.7 pg Normal 27.0-32.0 [facility] Comment on above: Performed By: #### L 801.1543, L505.5000, L801.1541 #### [facility] [address] [place], [address] Mean corpuscular hemoglobin concentration (MCHC) determinationOrdered By: Huber Ballard on 08-27-2024 MCHC (RBC) [Mass/Vol] 33.4 g/dL Normal 32-36 [facility] Comment on above: Performed By: #### L 801.1543, L505.5000, L801.1541 #### [facility] [address] [place], [address] Mean platelet volume determi nationOrdered By: Huber Ballard on 08-27-2024 Platelet mean volume (Bld) [Entitic vol] 9.6 fL Normal 6.2-12.0 [facility] Comment on above: Performed By: #### L 801.1543, L505.5000, L801.1541 #### [facility] [address] [place], [address] Microscopic analysis of urin e for red blood cells (RBC)Ordered By: Huber Ballard on 08-27-2024 Microscopic analysis of urine for red blood cells (RBC) 0-5 SEEN /hpf 0-5 [facility] Monocyte percentageOrdered B y: Huber Ballard on 08-27-2024 Monocytes/100 WBC (Bld) 5.1 % 0-10 [facility] Comment on above: Performed By: #### L 801.1543, L505.5000, L801.1541 #### [facility] [address] [place], [address] Mucus LM Ql (Urine sed)Order ed By: Huber Ballard on 08-27-2024 Mucus Ql (Urine sed) 0 SEEN /hpf [facility] Neutrophil percentageOrdered By: Huber Ballard on 08-27-2024 Neutrophils/100 WBC (Bld) 86.9 % High 47-70 [facility] Comment on above: Performed By: #### L 801.1543, L505.5000, L801.1541 #### [facility] [address] [place], [place], [id number] Nitrite Test strip Ql (U)Ord ered By: Huber Ballard on 08-27-2024 Nitrite Ql (U) Negative Negative [facility] Nucleated red blood cell per centageOrdered By: Huber Ballard on 08-27-2024 Nucleated RBC/100 WBC (Bld) [Ratio] 0 % 0-5 [facility] Partial Thromboplast Timeon 08-27-2024 aPTT Coag (Bld) [Time] 36.4 s High 24.1-36.2 [facility] Comment on above: Performed By: #### L 801.1543, L505.5000, L801.1541 #### [facility] [address] [place], [address] Platelet countOrdered By: Malcom Ballard on 06-11-2025 Platelets (Bld) [#/Vol] 332 10*3/uL Normal 150-450 [facility] Comment on above: Performed By: #### L 801.1543, L505.5000, L801.1541 #### [facility] [address] [place], [address] Potassium measurement (mass/ volume)Ordered By: Huber Ballard on 08-27-2024 Potassium (Unsp spec) [Mass/Vol] 4.3 mmol/L 3.3-5.1 [facility] Comment on above: Hemolysis present, R esults could be affected. Protein Test strip Ql (U)Ord ered By: Huber Balalrd on 08-27-2024 Protein Ql (U) 30 mg/dl High Negative [facility] Prothrombin Time w/INRon INR Coag (PPP) [Relative time] 1.0 {INR} Normal [facility] Comment on above: Performed By: #### L 801.1543, L505.5000, L801.1541 #### [facility] [address] [place], [address] Prothrombin timeOrdered By: Huber Ballard on 08-27-2024 PT Coag (PPP) [Time] 13.4 s 11.7-14.9 [facility] Comment on above: Performed By: #### L 801.1543, L505.5000, L801.1541 #### [facility] [address] [place], [address] Serum creatinine measurement (mass/volume)Ordered By: Huber Ballard on 08-27-2024 Creatinine [Mass/Vol] 1.08 mg/dL Normal 0.70-1.20 [facility] [place] Comment on above: Performed By: #### L 801.1543, L505.5000, L801.1541 #### [facility] [address] [place], [address] Serum globulin measurementOr dered By: Huber Ballard on 08-27-2024 Globulin (S) [Mass/Vol] 3.3 g/dL 2.2-4.2 [facility] Comment on above: Performed By: #### L 801.1543, L505.5000, L801.1541 #### [facility] [address] [place], [address] Serum glucose measurement (m ass/volume)Ordered By: Huber Ballard on 08-27-2024 Glucose [Mass/Vol] 91 mg/dL Normal 70-99 [facility] Comment on above: Performed By: #### L 801.1543, L505.5000, L801.1541 #### [facility] [address] [place], [address] Serum or plasma alanine soliz otransferase (ALT) measurementOrdered By: Huberyandel Ballard on 08-27-2024 ALT [Catalytic activity/Vol] 19 U/L <35 [facility] Comment on above: Hemolysis present, R esults could be affected. Result Comment: Hemo lysis present, Results??could be affected. ?? Performed By: #### L 801.1543, L505.5000, L801.1541 #### [facility] [address] [place], [address] Serum or plasma albumin rosangela urement (mass/volume)Ordered By: Huber Ballard on 08-27-2024 Albumin [Mass/Vol] 3.3 g/dL Low 3.4-4.8 [facility] Comment on above: Performed By: #### L 801.1543, L505.5000, L801.1541 #### [facility] [address] [place], [address] Serum or plasma albumin/glob ulin mass ratioOrdered By: Huber Ballard on 08-27-2024 Albumin/Globulin [Mass ratio] 1.0 {ratio} 0.9-2.4 [facility] Comment on above: Performed By: #### L 801.1543, L505.5000, L801.1541 #### [facility] [address] [place], [address] Serum or plasma alkaline faustino sphatase measurementOrdered By: Huber Ballard on 08-27-2024 ALP [Catalytic activity/Vol] 97 U/L 35-104 [facility] Serum or plasma calcium rosangela urement (mass/volume)Ordered By: Huber Ballard on 08-27-2024 Calcium [Mass/Vol] 8.4 mg/dL Normal 7.6-11.0 [facility] Comment on above: Performed By: #### L 801.1543, L505.5000, L801.1541 #### [facility] [address] [place], [address] Serum or plasma urea nitroge n measurement (mass/volume)Ordered By: Huber Ballard on 08-27-2024 Urea nitrogen [Mass/Vol] 13 mg/dL Normal 4-19 [facility] Comment on above: Performed By: #### L 801.1543, L505.5000, L801.1541 #### [facility] [address] [place], [address] Sodium levelOrdered By: Huber Ballard on 08-27-2024 Sodium [Moles/Vol] 136 mmol/L Normal 133-145 [facility] Comment on above: Performed By: #### L 801.1543, L505.5000, L801.1541 #### [facility] [address] [place], [address] Squamous epithelial cells de tection in urine sediment by light microscopyOrdered By: Huber Ballard on 08-27-2024 Epithelial cells.squamous LM Ql (Urine sed) 0-5 SEEN /hpf 5-10 [facility] Total proteinOrdered By: Huber Ballard on 08-27-2024 Protein [Mass/Vol] 6.6 g/dL 5.9-8.4 [facility] Urinalysis, Completeon 08-27 BACTERIA RARE Normal None Seen [facility] Comment on above: Order Comment: [id number] TRAMADOL Performed By: #### L 801.1543, L505.5000, L801.1541 #### [facility] [address] [place], [address] EPI,SQUAMOUS 0-5 SEEN Normal 5-10 [facility] Comment on above: Order Comment: [id number] TRAMADOL Performed By: #### L 801.1543, L505.5000, L801.1541 #### [facility] [address] [place], [address] RBC 0-5 SEEN Normal 0-5 [facility] Comment on above: Order Comment: [id number] TRAMADOL Performed By: #### L 801.1543, L505.5000, L801.1541 #### [facility] [address] [place], [address] YEAST 2+ /hpf Normal None Seen [facility] Comment on above: Order Comment: [id number] TRAMADOL Performed By: #### L 801.1543, L505.5000, L801.1541 #### [facility] [address] [place], [address] WBC 5-10 SEEN Normal 0-5 [facility] Comment on above: Order Comment: [id number] TRAMADOL Performed By: #### L 801.1543, L505.5000, L801.1541 #### [facility] [address] [place], [address] Mucus Ql (Urine sed) 0 SEEN Normal [facility] Comment on above: Order Comment: [id number] TRAMADOL Performed By: #### L 801.1543, L505.5000, L801.1541 #### [facility] [address] [place], [address] Urine Legionella pneumophila antigen detectionOrdered By: Christofer Espino on 08-27-2024 L. pneumophila Ag Ql (U) [facility] Urine clarityOrdered By: Huber Ballard on 08-27-2024 Clarity (U) Sl Cldy Clear [facility] Urine color determinationOrd ered By: Huber Ballard on 08-27-2024 Color (U) Yellow Yellow [facility] Urine cultureOrdered By: Huber Ballard on 08-27-2024 Bacteria identified Cx Nom (U) Yeast, not Mary Alice albicans Abnormal [facility] Urine glucose detectionOrder ed By: Huber Ballard on 08-27-2024 Glucose Ql (U) Normal mg/dl Normal [facility] Urine leukocyte esterase det ection by dipstickOrdered By: Huber Ballard on 08-27-2024 Leukocyte esterase Test strip Ql (U) Negative Negative [facility] Urine pHOrdered By: Huber santamaria on 08-27-2024 pH (U) 6.0 [pH] 5.0 - 8.0 [facility] Urine sediment bacteria coun t by microscopy (number/high power field)Ordered By: Huber Ballard on 08-27-2024 Bacteria LM.HPF (Urine sed) [#/Area] RARE /hpf None Seen [facility] Urine sediment yeast count b y microscopy (number/high powered field)Ordered By: Huber Ballard on 08-27-2024 Yeast LM.HPF (Urine sed) [#/Area] 2 /[HPF] None Seen [facility] Urine specific gravity measu rementOrdered By: Huber Ballard on 08-27-2024 Specific gravity (U) [Rel density] 1.015 1.002-1.03 0 [facility] Urine urobilinogen measureme ntOrdered By: Huber Ballard on 08-27-2024 Urobilinogen Ql (U) Normal mg/dl Normal [facility] White blood cell (WBC) count Ordered By: Huberyandel Ballard on 08-27-2024 WBC (Bld) [#/Vol] 6.5 10*3/uL Normal 4.4-11.0 [facility] Comment on above: Performed By: #### L 801.1543, L505.5000, L801.1541 #### [facility] [address] [place], [place], [id number] White blood cell countOrdere d By: Huber Ballard on 08-27-2024 White blood cell count 5-10 SEEN /hpf 0-5 [facility] Absolute lymphocyte countOrd ered By: Harish Luis on 07-15-2024 Lymphocytes Auto (Unsp spec) [#/Vol] 1.65 10*3/uL 0.83-4.51 [facility] Absolute neutrophil countOrd ered By: Harish Luis on 07-15-2024 Neutrophils (Bld) [#/Vol] 4.2 10*3/uL 2.0-7.7 [facility] Anion gap in Serum or Plasma Ordered By: Harish Luis on 07-15-2024 Anion gap [Moles/Vol] 10 mmol/L 5-15 [facility] Automated lymphocyte count a s percentage of total leukocytesOrdered By: Harish Luis on 07-15-2024 Lymphocytes/100 WBC Auto (Unsp spec) 25.3 % 19-41 [facility] BUN/creatinine ratioOrdered By: Harish Luis on 07-15-2024 Urea nitrogen/Creatinine [Mass ratio] 8.0 mg/mg Low 10-20 [facility] Basophil percentageOrdered B y: Harish Luis on 07-15-2024 Basophils/100 WBC (Bld) 0.6 % 0-1 [facility] Bilirubin, totalOrdered By: Harish Luis on 07-15-2024 Bilirubin [Mass/Vol] 0.25 mg/dL 0.00-1.30 [facility] Brain/Head without Contrasto n 07-15-2024 Brain/Head without Contrast [facility] Services [address] [place] [address] Brain/Head without Contrast MR#: [id number] Acct: [id number] Name: NIKCAROL Ebonie Rep #: [id number] : 1950 F 74 From: Celso soliz MD PCP: Dr. Harish Luis MD Status: REG CLI Study: Brain/Head without Contrast Date of Exam: 06/18 12/11 Exam# [id number] Ordering Dr: Ghazal Ledesma MD PROCEDURE: BRAIN/HEAD [...] microvascular ischemia and involutional changes. Reading Location: [facility] CC: Dr. Ghazal Ledesma MD; Dr. Harish Luis MD [employer]: Signed Normal [facility] CBC W/Diff, Automatedon 04- Absolute Lymph 1.65 X10 3/uL Normal 0.83-4.51 [facility] Comment on above: Performed By: #### L 801.1543, L505.5000, L801.1541 #### [facility] [address] [place], [address] Absolute Neut 4.2 X10 3/uL Normal 2.0-7.7 [facility] Comment on above: Performed By: #### L 801.1543, L505.5000, L801.1541 #### [facility] [address] [place], [address] Basophils/100 WBC (Bld) 0.6 % Normal 0-1 [facility] Comment on above: Performed By: #### L 801.1543, L505.5000, L801.1541 #### [facility] [address] [place], [address] Eosinophils/100 WBC (Bld) 1.8 % Normal 0-5 [facility] Comment on above: Performed By: #### L 801.1543, L505.5000, L801.1541 #### [facility] [address] [place], [address] Erythrocyte distribution width (RBC) [Ratio] 13.9 % Normal 11.6-14.6 [facility] Comment on above: Performed By: #### L 801.1543, L505.5000, L801.1541 #### [facility] [address] [place], [address] Hematocrit (Bld) [Volume fraction] 35.2 % Low 37-47 [facility] Comment on above: Performed By: #### L 801.1543, L505.5000, L801.1541 #### [facility] [address] [place], [address] Hemoglobin (Bld) [Mass/Vol] 11.6 g/dL Low 12.0-15.0 [facility] Comment on above: Performed By: #### L 801.1543, L505.5000, L801.1541 #### [facility] [address] [place], [address] IG% 0.600 Normal 0.0-0.9 [facility] Comment on above: Result Comment: IG% - Immature Granulocytes (promyelocytes, myelocytes and metamyelocytes) > 1% indicates that a LEFT SHIFT is Present. Performed By: #### L 801.1543, L505.5000, L801.1541 #### [facility] [address] [place], [address] Lymphocytes/100 WBC (Bld) 25.3 % Normal 19-41 [facility] Comment on above: Performed By: #### L 801.1543, L505.5000, L801.1541 #### [facility] [address] [place], [address] MCH (RBC) [Entitic mass] 32.6 pg High 27.0-32.0 [facility] Comment on above: Performed By: #### L 801.1543, L505.5000, L801.1541 #### [facility] [address] [place], [address] MCHC (RBC) [Mass/Vol] 33.0 g/dL Normal 32-36 [facility] Comment on above: Performed By: #### L 801.1543, L505.5000, L801.1541 #### [facility] [address] [place], [address] MCV (RBC) [Entitic vol] 98.9 fL Normal 81-99 [facility] Comment on above: Performed By: #### L 801.1543, L505.5000, L801.1541 #### [facility] [address] [place], [address] Monocytes/100 WBC (Bld) 6.6 % Normal 0-10 [facility] Comment on above: Performed By: #### L 801.1543, L505.5000, L801.1541 #### [facility] [address] [place], [address] Neutrophils/100 WBC (Bld) 65.1 % Normal 47-70 [facility] Comment on above: Performed By: #### L 801.1543, L505.5000, L801.1541 #### [facility] [address] [place], [address] Nucleated RBC (Bld) [#/Vol] 0 10*3/uL Normal 0-5 [facility] Comment on above: Performed By: #### L 801.1543, L505.5000, L801.1541 #### [facility] [address] [place], [address] Platelet mean volume (Bld) [Entitic vol] 9.5 fL Normal 6.2-12.0 [facility] Comment on above: Performed By: #### L 801.1543, L505.5000, L801.1541 #### [facility] [address] [place], [address] Platelets (Bld) [#/Vol] 415 10*3/uL Normal 150-450 [facility] Comment on above: Performed By: #### L 801.1543, L505.5000, L801.1541 #### [facility] [address] [place], [address] RBC (Bld) [#/Vol] 3.56 10*6/uL Low 4.2-5.4 [facility] Comment on above: Performed By: #### L 801.1543, L505.5000, L801.1541 #### [facility] [address] [place], [address] RDW SD 51.2 fl High 35.1-43.9 [facility] Comment on above: Performed By: #### L 801.1543, L505.5000, L801.1541 #### [facility] [address] [place], [address] WBC (Bld) [#/Vol] 6.5 10*3/uL Normal 4.4-11.0 [facility] Comment on above: Performed By: #### L 801.1543, L505.5000, L801.1541 #### [facility] [address] [place], [address] Calculated very low density lipoprotein (VLDL) cholesterol measurementOrdered By: Harish Luis on 07-15-2024 Calculated very low density lipoprotein (VLDL) cholesterol measurement 15 mg/dL 5-40 [facility] Carbon dioxide, total [Moles /volume] in Central venous bloodOrdered By: Harish Lusi on 07-15-2024 CO2 [Moles/Vol] 23.6 mmol/L 21.0-32.0 [facility] Chloride assayOrdered By: Levar Luis on 07-15-2024 Chloride [Moles/Vol] 109 mmol/L High 98-108 [facility] Comprehensive Metabolic Prof ilon 07-15-2024 Albumin [Mass/Vol] 3.2 g/dL Low 3.4-4.8 [facility] Comment on above: Performed By: #### L 801.1543, L505.5000, L801.1541 #### [facility] [address] [place], [address] Albumin/Globulin [Mass ratio] 1.0 {ratio} Normal 0.9-2.4 [facility] Comment on above: Performed By: #### L 801.1543, L505.5000, L801.1541 #### [facility] [address] [place], [address] ALK PHOS 100 U/L Normal 35-104 [facility] Comment on above: Performed By: #### L 801.1543, L505.5000, L801.1541 #### [facility] [address] [place], [address] ALT [Catalytic activity/Vol] 10 U/L Normal <=34 [facility] Comment on above: Performed By: #### L 801.1543, L505.5000, L801.1541 #### [facility] [address] [place], [address] AST [Catalytic activity/Vol] 16 U/L Normal <=31 [facility] Comment on above: Performed By: #### L 801.1543, L505.5000, L801.1541 #### [facility] [address] [place], [address] Bilirubin [Mass/Vol] 0.25 mg/dL Normal 0.00-1.30 [facility] Comment on above: Performed By: #### L 801.1543, L505.5000, L801.1541 #### [facility] [address] [place], [address] BUN/CRE 8.0 RATIO Low 10-20 [facility] Comment on above: Performed By: #### L 801.1543, L505.5000, L801.1541 #### [facility] [address] [place], [address] Calcium [Mass/Vol] 8.9 mg/dL Normal 7.6-11.0 [facility] Comment on above: Performed By: #### L 801.1543, L505.5000, L801.1541 #### [facility] [address] [place], [address] Chloride [Moles/Vol] 109 mmol/L High 98-108 [facility] Comment on above: Performed By: #### L 801.1543, L505.5000, L801.1541 #### [facility] [address] [place], [address] CO2 [Moles/Vol] 23.6 mmol/L Normal 21.0-32.0 [facility] Comment on above: Performed By: #### L 801.1543, L505.5000, L801.1541 #### [facility] [address] [place], [address] Creatinine [Mass/Vol] 0.97 mg/dL Normal 0.70-1.20 [facility] Comment on above: Performed By: #### L 801.1543, L505.5000, L801.1541 #### [facility] [address] [place], [address] GAP 10 Normal 5-15 [facility] Comment on above: Performed By: #### L 801.1543, L505.5000, L801.1541 #### [facility] [address] [place], [address] GFR/1.73 sq M.predicted among non-blacks MDRD (S/P/Bld) [Vol rate/Area] 61 mL/min/{1.73_m2} Normal >60 [facility] Comment on above: Result Comment: mL/m in/1.73m2 CKD-EPI Creatinine Equation (2020) Performed By: #### L 801.1543, L505.5000, L801.1541 #### [facility] [address] [place], [address] Globulin (S) [Mass/Vol] 3.1 g/dL Normal 2.2-4.2 [facility] Comment on above: Performed By: #### L 801.1543, L505.5000, L801.1541 #### [facility] [address] [place], [address] Glucose [Mass/Vol] 114 mg/dL High 70-99 [facility] Comment on above: Performed By: #### L 801.1543, L505.5000, L801.1541 #### [facility] [address] [place], [address] Potassium [Moles/Vol] 3.5 mmol/L Normal 3.3-5.1 [facility] Comment on above: Performed By: #### L 801.1543, L505.5000, L801.1541 #### [facility] [address] [place], [address] Sodium [Moles/Vol] 143 mmol/L Normal 133-145 [facility] Comment on above: Performed By: #### L 801.1543, L505.5000, L801.1541 #### [facility] [address] [place], [address] T PROT 6.3 g/dL Normal 5.9-8.4 [facility] Comment on above: Performed By: #### L 801.1543, L505.5000, L801.1541 #### [facility] [address] [place], [place], [address] Urea nitrogen [Mass/Vol] 8 mg/dL Normal 4-19 [facility] Comment on above: Performed By: #### L 801.1543, L505.5000, L801.1541 #### [facility] [address] [place], [address] Eosinophil percentageOrdered By: Harish Luis on 07-15-2024 Eosinophils/100 WBC (Bld) 1.8 % 0-5 [facility] Erythrocyte distribution wid th ratioOrdered By: Harish Luis on 07-15-2024 Erythrocyte distribution width (RBC) [Ratio] 13.9 % 11.6-14.6 [facility] Erythrocyte distribution wid th standard deviationOrdered By: Harish Luis on 07-15-2024 Erythrocyte distribution width (RBC) [Ratio] 51.2 fl High 35.1-43.9 [facility] Glomerular filtration rate ( GFR) estimation/1.73 sq m using serum, plasma, or whole bOrdered By: Harish Luis on 07-15-2024 GFR/1.73 sq M.predicted among non-blacks MDRD (S/P/Bld) [Vol rate/Area] 61 mL/min/{1.73_m2} >60 [facility] Comment on above: mL/min/1.73m2 CKD-EP I Creatinine Equation (2020) Hematocrit Auto (Bld) [Volum e fraction]Ordered By: Harish Luis on 07-15-2024 Hematocrit (Bld) [Volume fraction] 35.2 % Low 37-47 [facility] Hemoglobin measurementOrdere d By: Harish Luis 07-15-2024 Hemoglobin (Bld) [Mass/Vol] 11.6 g/dL Low 12.0-15.0 [facility] Immature granulocytes/100 WB C Auto (Bld)Ordered By: Harish Luis 07-15-2024 Immature granulocytes/100 WBC (Bld) 0.600 % 0.0-0.9 [facility] Comment on above: IG% - Immature Granu locytes (promyelocytes, myelocytes and metamyelocytes) > 1% indicates that a LEFT SHIFT is Present. LDL calc ser/plasOrdered By: Harish Luis on 07-15-2024 Cholesterol in LDL [Mass/Vol] 151 mg/dL [facility] Comment on above: Bdddzzzgml=187-929 m g/dL & Higher Diev=032 mg/dL or greater Result Comment: Bord bkqvoo=644-059 mg/dL Higher Queq=486 mg/dL or greater Performed By: #### L 801.1543, L505.5000, L801.1541 #### [facility] [address] [place], [address] Laboratory - Chemistry and C hemistry - challengeOrdered By: Harish Luis on 07-15-2024 AST [Catalytic activity/Vol] 16 U/L <32 [facility] Lipid Profileon 07-15-2024 CHOL:HDL 3.13 Normal [facility] Comment on above: Performed By: #### L 801.1543, L505.5000, L801.1541 #### [facility] [address] [place], [address] Cholesterol in VLDL [Mass/Vol] 15 mg/dL Normal 5-40 [facility] Comment on above: Performed By: #### L 801.1543, L505.5000, L801.1541 #### [facility] [address] [place], [address] MCV (mean corpuscular volume ) determinationOrdered By: Harish Luis on 07-15-2024 MCV (RBC) [Entitic vol] 98.9 fL 81-99 [facility] Mean corpuscular hemoglobin (MCH) determinationOrdered By: Harish Luis on 07-15-2024 MCH (RBC) [Entitic mass] 32.6 pg High 27.0-32.0 [facility] Mean corpuscular hemoglobin concentration (MCHC) determinationOrdered By: Harish Luis on 07-15-2024 MCHC (RBC) [Mass/Vol] 33.0 g/dL 32-36 [facility] Mean platelet volume determi nationOrdered By: Harish Luis on 07-15-2024 Platelet mean volume (Bld) [Entitic vol] 9.5 fL 6.2-12.0 [facility] Monocyte percentageOrdered B y: Harish Luis on 07-15-2024 Monocytes/100 WBC (Bld) 6.6 % 0-10 [facility] Neutrophil percentageOrdered By: Harish Luis on 07-15-2024 Neutrophils/100 WBC (Bld) 65.1 % 47-70 [facility] Nucleated red blood cell per centageOrdered By: Harish Luis on 07-15-2024 Nucleated RBC/100 WBC (Bld) [Ratio] 0 % 0-5 [facility] Platelet countOrdered By: Levar Luis on 07-15-2024 Platelets (Bld) [#/Vol] 415 10*3/uL 150-450 [facility] Potassium measurement (mass/ volume)Ordered By: Harish Luis on 07-15-2024 Potassium (Unsp spec) [Mass/Vol] 3.5 mmol/L 3.3-5.1 [facility] RBC Auto (Bld) [#/Vol]Ordere d By: Harish Luis on 07-15-2024 RBC (Bld) [#/Vol] 3.56 10*6/uL Low 4.2-5.4 [facility] Screening total cholesterol/ high density lipoprotein (HDL) cholesterol ratioOrdered By: Harish Luis 07-15-2024 Cholesterol.total/Tamera sterol in HDL [Mass ratio] 3.13 {ratio} [facility] Serum creatinine measurement (mass/volume)Ordered By: Harish Luis on 07-15-2024 Creatinine [Mass/Vol] 0.97 mg/dL 0.70-1.20 [facility] Serum globulin measurementOr dered By: Harish Luis 07-15-2024 Globulin (S) [Mass/Vol] 3.1 g/dL 2.2-4.2 [facility] Serum glucose measurement (m ass/volume)Ordered By: Harish Luis on 07-15-2024 Glucose [Mass/Vol] 114 mg/dL High 70-99 [facility] Serum or plasma alanine soliz otransferase (ALT) measurementOrdered By: Harish Luis on 07-15-2024 ALT [Catalytic activity/Vol] 10 U/L <35 [facility] Serum or plasma albumin rosangela urement (mass/volume)Ordered By: Harish Luis 07-15-2024 Albumin [Mass/Vol] 3.2 g/dL Low 3.4-4.8 [facility] Serum or plasma albumin/glob ulin mass ratioOrdered By: Harish Luis 07-15-2024 Albumin/Globulin [Mass ratio] 1.0 {ratio} 0.9-2.4 [facility] Serum or plasma alkaline faustino sphatase measurementOrdered By: Harish Luis 07-15-2024 ALP [Catalytic activity/Vol] 100 U/L 35-104 [facility] Serum or plasma calcium rosangela urement (mass/volume)Ordered By: Harish Luis 07-15-2024 Calcium [Mass/Vol] 8.9 mg/dL 7.6-11.0 [facility] Serum or plasma cholesterol in HDL measurement (mass/volume)Ordered By: Harish Luis 07-15-2024 Cholesterol in HDL [Mass/Vol] 78 mg/dL >40 [facility] Comment on above: National Cholesterol [...] By: #### L 801.1543, L505.5000, L801.1541 #### [facility] [place] [place], [address] Serum or plasma cholesterol measurement (mass/volume)Ordered By: Harish Luis on 07-15-2024 Cholesterol [Mass/Vol] 245 mg/dL High <201 [facility] Comment on above: Cholesterol level, D esirable <200 mg/dLBorderline high cholesterol 200-239 mg/dLHigh cholesterol >=240 mg/dLRecommendations of the NCEP Adult Treatment Panel for the following risk-cutoff thresholds for the [place] population. Result Comment: Chol esterol level, Desirable <200 mg/dL Borderline high cholesterol 200-239 mg/dL High cholesterol >=240 mg/dL Recommendations of the NCEP Adult Treatment Panel for the following risk-cutoff thresholds for the [place] population. Performed By: #### L 801.1543, L505.5000, L801.1541 #### [facility] [address] [place], [place], [id number] Serum or plasma urea nitroge n measurement (mass/volume)Ordered By: Harish Luis on 07-15-2024 Urea nitrogen [Mass/Vol] 8 mg/dL 4-19 [facility] Sodium levelOrdered By: Harish Luis on 07-15-2024 Sodium [Moles/Vol] 143 mmol/L 133-145 [facility] TSH DL <= 0.005 mIU/L QnOrde red By: Harish Luis on 07-15-2024 TSH Qn 0.847 uIU/mL 0.300-4.20 0 [facility] Thyroid Stim Hormone (TSH)on 07-15-2024 TSH 0.847 uIU/mL Normal 0.300-4.20 0 [facility] Comment on above: Performed By: #### L 801.1543, L505.5000, L801.1541 #### [facility] [address] [place], [address] Total proteinOrdered By: Harish Luis on 07-15-2024 Protein [Mass/Vol] 6.3 g/dL 5.9-8.4 [facility] Triglycerides measurementOrd ered By: Harish Luis on 07-15-2024 Triglyceride [Mass/Vol] 77 mg/dL <199 [facility] Comment on above: The drugs N-Acetylcy steine and Metamizole may falsely depress this assay. Normal range: <150 mg/dLBorderline High: 150-199 mg/dLHigh: 200-499 mg/dLVery High: >500 mg/dL Result Comment: The drugs N-Acetylcysteine and Metamizole may falsely depress this assay. Normal range: <150 mg/dL Borderline High: 150-199 mg/dL High: 200-499 mg/dL Very High: >500 mg/dL Performed By: #### L 801.1543, L505.5000, L801.1541 #### [facility] [address] [facility] [address] Vitamin D,25 Hydroxyon 07-15 Vitamin D 25-OH 46.3 ng/mL Normal 30-100 [facility] Comment on above: Result Comment: Amalia min D Status Deficiency: <20 ng/mL (50nmol/L) Insufficiency: 20-30 ng/mL (50-75 nmol/L) Sufficiency: 30-100 ng/mL (75-250 nmol/L) Toxicity: >100 ng/mL (>250 nmol/L) Performed By: #### L 801.1543, L505.5000, L801.1541 #### [facility] [address] [place], [address] White blood cell (WBC) count Ordered By: Harish Luis on 07-15-2024 WBC (Bld) [#/Vol] 6.5 10*3/uL 4.4-11.0 [facility] Emergency Department Summary on 06-04-2024 Emergency Department Summary [facility] Medical Records Department [address] [place] [address] Emergency Department Summary 06/04/24 MR#: [id number] Acct: [id number] Name: CAROL ZARAGOZA Rep #: [id number] : 1950 74 From: Irving White DO PCP: Dr. Harish Luis MD Status:DEP ER Location: ED HPI History of Present Illness Chief Complaint: Upper Extremity Injury Informant: patient and spouse/S.O. Narrative Narrative: 74-year-old female presenting to the the chief complaint of right shoulder pain after a fall. Patient states she was in her kitchen and pressed the button on the gun tester and fell over. She is unsure if [...] not currently. She denies any hand symptoms. [facility] Medical History Hypoxia Fracture of humeral head [...] history: Currently ambulating with a cane ROS [facility] ED Constitutional Constitutional ED: Denies chills, fever(s) [...] or weakness (more content not included)... Normal [facility] Shoulder min 2 Viewson 06-04 Shoulder min 2 Views [facility] Imaging Services [address] [place] [address] Shoulder min 2 Views MR#: [id number] Acct: [id number] Name: CAROL ZARAGOZA Rep #: [id number] : 1950 F 74 From: Thuan aSntamaria PCP: Dr. Harish Luis MD Status: REG ER Study: Shoulder min 2 Views Date of Exam: 06/04/24 Exam# [id number] Ordering Dr: Irving White DO PROCEDURE: Right [...] Irving White DO; Dr. Harish Luis MD [employer] Winding Operator: Signed Normal [facility] Urine Cultureon 04-03-2024 URC Mary Alice albicans [place] Count 80,000-100,000 Normal [facility] Comment on above: Performed By: #### L 501.5200 #### [facility] [address] [facility]. [place], [place], [address] Brain/Head without Contrasto n 03-31-2024 Brain/Head without Contrast [facility] Imaging Services [address] [place] [address] Brain/Head without Contrast MR#: [id number] Acct: [id number] Name: CAROL ZARAGOZA Rep #: [id number] : 1950 F 73 From: Rafael max MD PCP: Dr. Harish Luis MD Status: REG CLI Study: Brain/Head without Contrast Date of Exam: 03/19 06/10 Exam# [id number] Ordering Dr: Harish Luis MD [id number] STUDY: CT BRAIN WITHOUT CONTRAST REASON FOR [...] EST , CC: Dr. Harish Luis MD [employer] Winding Operator: Signed Normal [facility] Urine cultureOrdered By: Harish Luis on 03-31-2024 Bacteria identified Cx Nom (U) Mary Alice albicans Abnormal [facility] Influenza virus A and B and SARS-CoV-2 (COVID-19) and Respiratory syncytial virus RNAOrdered By: Harish Luis on 02-19-2024 SARS-CoV-2 (COVID-19) RNA ANTIONE+probe Ql (Unsp spec) [facility] M100.678on 02-19-2024 M100.678 Pending SARS-CoV-2 (COVID 19) Negative INFLUENZA A Negative INFLUENZA B Negative RSV PCR Negative Normal [facility] Comment on above: Performed By: #### L 801.1543, L505.5000, L801.1541 #### [facility] [address] [place], [address] Vitamin D,25 Hydroxyon - Vitamin D 25-OH 35.4 ng/mL Normal [facility] Comment on above: Result Comment: Amalia min D 25(OH) Status Range Deficiency <20 ng/mL (50nmol/L) Insufficiency 20 - 30 ng/mL (50 - 75 nmol/L) Sufficiency 30 - 100 ng/mL (75 - 250 nmol/L) Toxicity >100 ng/mL (>250 nmol/L) Performed By: #### L 500.4100, L506.1000, L501.9520, L100.0100, L500.4050 ####[facility] [address] [place], [address] CBC W/Diff, Automatedon 10-2 -2023 Absolute Lymph 1.63 X10 3/uL Normal 0.83-4.51 [facility] Comment on above: Performed By: #### L 500.4100, L506.1000, L501.9520, L100.0100, L500.4050 ####[facility] [address] [place], [address] Absolute Neut 4.3 X10 3/uL Normal 2.0-7.7 [facility] Comment on above: Performed By: #### L 500.4100, L506.1000, L501.9520, L100.0100, L500.4050 ####[facility] [address] [place], [address] Basophils/100 WBC (Bld) 0.9 % Normal 0-1 [facility] Comment on above: Performed By: #### L 500.4100, L506.1000, L501.9520, L100.0100, L500.4050 ####[facility] [address] [place], [address] Eosinophils/100 WBC (Bld) 1.4 % Normal 0-5 [facility] Comment on above: Performed By: #### L 500.4100, L506.1000, L501.9520, L100.0100, L500.4050 ####[facility] [address] [place], [address] Erythrocyte distribution width (RBC) [Ratio] 14.9 % High 11.6-14.6 [facility] Comment on above: Performed By: #### L 500.4100, L506.1000, L501.9520, L100.0100, L500.4050 ####[facility] [address] [place], [address] Hematocrit (Bld) [Volume fraction] 36.7 % Low 37-47 [facility] Comment on above: Performed By: #### L 500.4100, L506.1000, L501.9520, L100.0100, L500.4050 ####[facility] [address] [place], [address] Hemoglobin (Bld) [Mass/Vol] 11.5 g/dL Low 12.0-15.0 [facility] Comment on above: Performed By: #### L 500.4100, L506.1000, L501.9520, L100.0100, L500.4050 ####[facility] [address] [place], [address] IG% 0.500 Normal 0.0-0.9 [facility] Comment on above: Result Comment: IG% - Immature Granulocytes (promyelocytes, myelocytes and metamyelocytes) > 1% indicates that a LEFT SHIFT is Present. Performed By: #### L 500.4100, L506.1000, L501.9520, L100.0100, L500.4050 ####[facility] [address] [place], [address] Lymphocytes/100 WBC (Bld) 25.0 % Normal 19-41 [facility] Comment on above: Performed By: #### L 500.4100, L506.1000, L501.9520, L100.0100, L500.4050 ####[facility] [address] [place], [address] MCH (RBC) [Entitic mass] 30.6 pg Normal 27.0-32.0 [facility] Comment on above: Performed By: #### L 500.4100, L506.1000, L501.9520, L100.0100, L500.4050 ####[facility] [address] [place], [address] MCHC (RBC) [Mass/Vol] 31.3 g/dL Low 32-36 [facility] Comment on above: Performed By: #### L 500.4100, L506.1000, L501.9520, L100.0100, L500.4050 ####[facility] [address] [place], [address] MCV (RBC) [Entitic vol] 97.6 fL Normal 81-99 [facility] Comment on above: Performed By: #### L 500.4100, L506.1000, L501.9520, L100.0100, L500.4050 ####[facility] [address] [place], [address] Monocytes/100 WBC (Bld) 6.1 % Normal 0-10 [facility] Comment on above: Performed By: #### L 500.4100, L506.1000, L501.9520, L100.0100, L500.4050 ####[facility] [address] [place], [address] Neutrophils/100 WBC (Bld) 66.1 % Normal 47-70 [facility] Comment on above: Performed By: #### L 500.4100, L506.1000, L501.9520, L100.0100, L500.4050 ####[facility] [address] [place], [address] Nucleated RBC (Bld) [#/Vol] 0 10*3/uL Normal 0-5 [facility] Comment on above: Performed By: #### L 500.4100, L506.1000, L501.9520, L100.0100, L500.4050 ####[facility] [address] [place], [address] Platelet mean volume (Bld) [Entitic vol] 9.6 fL Normal 6.2-12.0 [facility] Comment on above: Performed By: #### L 500.4100, L506.1000, L501.9520, L100.0100, L500.4050 ####[facility] [address] [place], [address] Platelets (Bld) [#/Vol] 419 10*3/uL Normal 150-450 [facility] Comment on above: Performed By: #### L 500.4100, L506.1000, L501.9520, L100.0100, L500.4050 ####[facility] [address] [place], [address] RBC (Bld) [#/Vol] 3.76 10*6/uL Low 4.2-5.4 [facility] Comment on above: Performed By: #### L 500.4100, L506.1000, L501.9520, L100.0100, L500.4050 ####[facility] [address] [place], [address] RDW SD 53.9 fl High 35.1-43.9 [facility] Comment on above: Performed By: #### L 500.4100, L506.1000, L501.9520, L100.0100, L500.4050 ####[facility] [address] [place], [address] WBC (Bld) [#/Vol] 6.5 10*3/uL Normal 4.4-11.0 [facility] Comment on above: Performed By: #### L 500.4100, L506.1000, L501.9520, L100.0100, L500.4050 ####[facility] [address] [place], [address] Comprehensive Metabolic [facility] 01-09-2024 Albumin [Mass/Vol] 2.7 g/dL Low 3.2-5.0 [facility] Comment on above: Performed By: #### L 500.4100, L506.1000, L501.9520, L100.0100, L500.4050 ####[facility] [address] [place], [address] Albumin/Globulin [Mass ratio] 0.8 {ratio} Low 0.9-2.4 [facility] Comment on above: Performed By: #### L 500.4100, L506.1000, L501.9520, L100.0100, L500.4050 ####[facility] [address] [place], [address] ALK P 90 U/L Normal 45-117 [facility] Comment on above: Performed By: #### L 500.4100, L506.1000, L501.9520, L100.0100, L500.4050 ####[facility] [address] [place], [address] ALT [Catalytic activity/Vol] 13 U/L Normal 13-56 [facility] Comment on above: Performed By: #### L 500.4100, L506.1000, L501.9520, L100.0100, L500.4050 ####[facility] [address] [place], [address] AST [Catalytic activity/Vol] 10 U/L Low 15-37 [facility] Comment on above: Performed By: #### L 500.4100, L506.1000, L501.9520, L100.0100, L500.4050 ####[facility] [address] [place], [address] Bilirubin [Mass/Vol] 0.20 mg/dL Normal 0.20-1.00 [facility] Comment on above: Result Comment: For patients on eltrombopag therapy, use of Dimension [place] TBIL is not recommended. Performed By: #### L 500.4100, L506.1000, L501.9520, L100.0100, L500.4050 ####[facility] [address] [place], [address] BUN/CRE 7.7 RATIO Low 10-20 [facility] Comment on above: Performed By: #### L 500.4100, L506.1000, L501.9520, L100.0100, L500.4050 ####[facility] [address] [place], [address] CA,Total 8.7 mg/dL Normal 8.5-10.1 [facility] Comment on above: Performed By: #### L 500.4100, L506.1000, L501.9520, L100.0100, L500.4050 ####[facility] [address] [place], [address] Chloride [Moles/Vol] 114 mmol/L High 98-107 [facility] Comment on above: Performed By: #### L 500.4100, L506.1000, L501.9520, L100.0100, L500.4050 ####[facility] [address] [place], [address] CO2 [Moles/Vol] 24.0 mmol/L Normal 21.0-32.0 [facility] Comment on above: Performed By: #### L 500.4100, L506.1000, L501.9520, L100.0100, L500.4050 ####[facility] [address] [place], [address] Creatinine [Mass/Vol] 0.91 mg/dL Normal 0.55-1.02 [facility] Comment on above: Result Comment: The validity of the calculated GFR GFRAA in patients over 70 years has not been determined. Clinical correlation is essential. Performed By: #### L 500.4100, L506.1000, L501.9520, L100.0100, L500.4050 ####[facility] [address] [place], [address] EST GFR - AA 78 mL/min Normal >60 [facility] Comment on above: Result Comment: Afri can [place] GFR Calc Performed By: #### L 500.4100, L506.1000, L501.9520, L100.0100, L500.4050 ####[facility] [address] [place], [address] GAP 5 Normal 5-15 [facility] Comment on above: Performed By: #### L 500.4100, L506.1000, L501.9520, L100.0100, L500.4050 ####[facility] [address] [place], [address] GFR/1.73 sq M.predicted among non-blacks MDRD (S/P/Bld) [Vol rate/Area] 65 mL/min/{1.73_m2} Normal >60 [facility] Comment on above: Result Comment: Non- GFR Calc Performed By: #### L 500.4100, L506.1000, L501.9520, L100.0100, L500.4050 ####[facility] [address] [place], [address] Globulin (S) [Mass/Vol] 3.5 g/dL Normal 2.2-4.2 [facility] Comment on above: Performed By: #### L 500.4100, L506.1000, L501.9520, L100.0100, L500.4050 ####[facility] [address] [place], [address] Glucose [Mass/Vol] 108 mg/dL High 74-106 [facility] Comment on above: Result Comment: Fast ing Glucose result from 100 to 125 mg/dL suggests IMPAIRED HOMEOSTASIS per A.D.A. criteria. Performed By: #### L 500.4100, L506.1000, L501.9520, L100.0100, L500.4050 ####[facility] [address] [place], [address] Potassium [Moles/Vol] 3.9 mmol/L Normal 3.5-5.1 [facility] Comment on above: Performed By: #### L 500.4100, L506.1000, L501.9520, L100.0100, L500.4050 ####[facility] [address] [place], [address] Sodium [Moles/Vol] 142 mmol/L Normal 136-145 [facility] Comment on above: Performed By: #### L 500.4100, L506.1000, L501.9520, L100.0100, L500.4050 ####[facility] [address] [place], [address] T PROT 6.2 g/dL Low 6.4-8.2 [facility] Comment on above: Performed By: #### L 500.4100, L506.1000, L501.9520, L100.0100, L500.4050 ####[facility] [address] [place], [address] Urea nitrogen [Mass/Vol] 7 mg/dL Normal 7-18 [facility] Comment on above: Performed By: #### L 500.4100, L506.1000, L501.9520, L100.0100, L500.4050 ####[facility] [address] [facility] [place], [address] Culture, Blood (WB)on 2023 CUB blood cultures x2, f rom 2 different sites No growth in 5 days. Normal [facility] Comment on above: Performed By: #### M 200.1000 ####[facility] [address] [facility] [place], [address] Lipid Profileon 01-09-2024 Cholesterol [Mass/Vol] 285 mg/dL High 200 [facility] Comment on above: Result Comment: <200 mg/dL Desirable 200-240 mg/dL Borderline >240 mg/dL High Risk Performed By: #### L 500.4100, L506.1000, L501.9520, L100.0100, L500.4050 ####[facility] [address] [place], [address] Cholesterol in HDL [Mass/Vol] 75 mg/dL Normal [facility] Comment on above: Result Comment: The drugs N-Acetylcysteine and Metamizole may falsely depress this assay. Reference Range HDL <40 mg/dL Low HDL Cholesterol HDL >or= 60 mg/dL High HDL Cholesterol Performed By: #### L 500.4100, L506.1000, L501.9520, L100.0100, L500.4050 ####[facility] [address] [facility] [place], [address] Cholesterol in LDL [Mass/Vol] 191 mg/dL High 0-130 [facility] Comment on above: Performed By: #### L 500.4100, L506.1000, L501.9520, L100.0100, L500.4050 ####[facility] [address] [place], [address] Cholesterol in VLDL [Mass/Vol] 19 mg/dL Normal 5-40 [facility] Comment on above: Performed By: #### L 500.4100, L506.1000, L501.9520, L100.0100, L500.4050 ####[facility] [address] [place], [address] Triglyceride [Mass/Vol] 97 mg/dL Normal [facility] Comment on above: Result Comment: The drugs N-Acetylcysteine and Metamizole may falsely depress this assay. Serum Triglycerides Reference Interval Normal <150 mg/dL Borderline high 150 - 199 mg/dL High 200 - 499 mg/dL Very High > or = 500 mg/dL Performed By: #### L 500.4100, L506.1000, L501.9520, L100.0100, L500.4050 ####[facility] [address] [place], [address] Thyroid Stim Hormone (TSH)on 01-09-2024 TSH 0.729 uIU/mL Normal 0.358-3.74 0 [facility] Comment on above: Performed By: #### L 500.4100, L506.1000, L501.9520, L100.0100, L500.4050 ####[facility] [address] [place], [address] Basic Metabolic Profile (BMP )on 01-04-2024 BUN/CRE 12.0 RATIO Normal 10-20 [facility] Comment on above: Performed By: #### L 801.1543, L505.5000, L801.1541 #### [facility] [address] [place], [address] CA,Total 8.3 mg/dL Low 8.5-10.1 [facility] Comment on above: Performed By: #### L 801.1543, L505.5000, L801.1541 #### [facility] [address] [place], [address] Chloride [Moles/Vol] 118 mmol/L High 98-107 [facility] Comment on above: Performed By: #### L 801.1543, L505.5000, L801.1541 #### [facility] [address] [place], [address] CO2 [Moles/Vol] 23.0 mmol/L Normal 21.0-32.0 [facility] Comment on above: Performed By: #### L 801.1543, L505.5000, L801.1541 #### [facility] [address] [place], [address] Creatinine [Mass/Vol] 0.75 mg/dL Normal 0.55-1.02 [facility] Comment on above: Result Comment: The validity of the calculated GFR GFRAA in patients over 70 years has not been determined. Clinical correlation is essential. Performed By: #### L 801.1543, L505.5000, L801.1541 #### [facility] [address] [place], [address] ECRCL 49.53 ml/min Normal [facility] Comment on above: Performed By: #### L 801.1543, L505.5000, L801.1541 #### [facility] [address] [place], [address] EST GFR - AA 98 mL/min Normal >60 [facility] Comment on above: Result Comment: Afri can [place] GFR Calc Performed By: #### L 801.1543, L505.5000, L801.1541 #### [facility] [address] [place], [address] GAP 3 Low 5-15 [facility] Comment on above: Performed By: #### L 801.1543, L505.5000, L801.1541 #### [facility] [address] [place], [address] GFR/1.73 sq M.predicted among non-blacks MDRD (S/P/Bld) [Vol rate/Area] 81 mL/min/{1.73_m2} Normal >60 [facility] Comment on above: Result Comment: Non- GFR Calc Performed By: #### L 801.1543, L505.5000, L801.1541 #### [facility] [address] [place], [address] Glucose [Mass/Vol] 83 mg/dL Normal 74-106 [facility] Comment on above: Performed By: #### L 801.1543, L505.5000, L801.1541 #### [facility] [address] [place], [address] Potassium [Moles/Vol] 4.2 mmol/L Normal 3.5-5.1 [facility] Comment on above: Performed By: #### L 801.1543, L505.5000, L801.1541 #### [facility] [address] [place], [address] Sodium [Moles/Vol] 144 mmol/L Normal 136-145 [facility] Comment on above: Performed By: #### L 801.1543, L505.5000, L801.1541 #### [facility] [address] [place], [address] Urea nitrogen [Mass/Vol] 9 mg/dL Normal 7-18 [facility] Comment on above: Performed By: #### L 801.1543, L505.5000, L801.1541 #### [facility] [address] [place], [address] CBC W/Diff, Automatedon 10-1 Absolute Lymph 1.68 X10 3/uL Normal 0.83-4.51 [facility] Comment on above: Performed By: #### L 801.1543, L505.5000, L801.1541 #### [facility] [address] [place], [address] Absolute Neut 6.7 X10 3/uL Normal 2.0-7.7 [facility] Comment on above: Performed By: #### L 801.1543, L505.5000, L801.1541 #### [facility] [address] [place], [address] Basophils/100 WBC (Bld) 0.4 % Normal 0-1 [facility] Comment on above: Performed By: #### L 801.1543, L505.5000, L801.1541 #### [facility] [address] [place], [address] Eosinophils/100 WBC (Bld) 1.6 % Normal 0-5 [facility] Comment on above: Performed By: #### L 801.1543, L505.5000, L801.1541 #### [facility] [address] [place], [address] Erythrocyte distribution width (RBC) [Ratio] 15.0 % High 11.6-14.6 [facility] Comment on above: Performed By: #### L 801.1543, L505.5000, L801.1541 #### [facility] [address] [place], [address] Hematocrit (Bld) [Volume fraction] 31.2 % Low 37-47 [facility] Comment on above: Performed By: #### L 801.1543, L505.5000, L801.1541 #### [facility] [address] [place], [address] Hemoglobin (Bld) [Mass/Vol] 9.9 g/dL Low 12.0-15.0 [facility] Comment on above: Performed By: #### L 801.1543, L505.5000, L801.1541 #### [facility] [address] [place], [address] IG% 0.300 Normal 0.0-0.9 [facility] Comment on above: Result Comment: IG% - Immature Granulocytes (promyelocytes, myelocytes and metamyelocytes) > 1% indicates that a LEFT SHIFT is Present. Performed By: #### L 801.1543, L505.5000, L801.1541 #### [facility] [address] [place], [address] Lymphocytes/100 WBC (Bld) 18.4 % Low 19-41 [facility] Comment on above: Performed By: #### L 801.1543, L505.5000, L801.1541 #### [facility] [address] [place], [address] MCH (RBC) [Entitic mass] 30.9 pg Normal 27.0-32.0 [facility] Comment on above: Performed By: #### L 801.1543, L505.5000, L801.1541 #### [facility] [address] [place], [address] MCHC (RBC) [Mass/Vol] 31.7 g/dL Low 32-36 [facility] Comment on above: Performed By: #### L 801.1543, L505.5000, L801.1541 #### [facility] [address] [place], [address] MCV (RBC) [Entitic vol] 97.5 fL Normal 81-99 [facility] Comment on above: Performed By: #### L 801.1543, L505.5000, L801.1541 #### [facility] [address] [place], [address] Monocytes/100 WBC (Bld) 5.9 % Normal 0-10 [facility] Comment on above: Performed By: #### L 801.1543, L505.5000, L801.1541 #### [facility] [address] [place], [address] Neutrophils/100 WBC (Bld) 73.4 % High 47-70 [facility] Comment on above: Performed By: #### L 801.1543, L505.5000, L801.1541 #### [facility] [address] [place], [address] Nucleated RBC (Bld) [#/Vol] 0 10*3/uL Normal 0-5 [facility] Comment on above: Performed By: #### L 801.1543, L505.5000, L801.1541 #### [facility] [address] [place], [address] Platelet mean volume (Bld) [Entitic vol] 9.8 fL Normal 6.2-12.0 [facility] Comment on above: Performed By: #### L 801.1543, L505.5000, L801.1541 #### [facility] [address] [place], [address] Platelets (Bld) [#/Vol] 314 10*3/uL Normal 150-450 [facility] Comment on above: Performed By: #### L 801.1543, L505.5000, L801.1541 #### [facility] [address] [place], [address] RBC (Bld) [#/Vol] 3.20 10*6/uL Low 4.2-5.4 [facility] Comment on above: Performed By: #### L 801.1543, L505.5000, L801.1541 #### [facility] [address] [place], [address] RDW SD 53.7 fl High 35.1-43.9 [facility] Comment on above: Performed By: #### L 801.1543, L505.5000, L801.1541 #### [facility] [address] [place], [address] WBC (Bld) [#/Vol] 9.1 10*3/uL Normal 4.4-11.0 [facility] Comment on above: Performed By: #### L 801.1543, L505.5000, L801.1541 #### [facility] [address] [place], [address] Discharge Instructionon 12-17 Discharge Instruction [facility] Medical Records Department [address] [place] [address] Instructions for Home/Discharge Instructions 01/04/24 1428 MR#: [id number] Acct: [id number] Name: CAROL ZARAGOZA Rep #: [id number] : 1950 73 From: Rafita Siddiqui DO [...] MD; Dr. Harish Luis MD Signed Normal [facility] Modified Barium Swallow Stud yon 01-04-2024 Modified Barium Swallow Study [facility] Speech Pathology [address] [place] [address] Modified Barium Swallow Study MR#: [id number] Acct: [id number] Name: CAROL ZARAGOZA Rep #: [id number] : 1950 73 From: Jocleyne Chinchilla M.A., [facility] Modified Barium Swallow Patient Information Study Date: 01/04/24 Study Time: 09:30 Direct Billable Minutes: 95 Total Minutes procedure reportin Diagnosis: Acute UTI N39.0; Acute encephalopathy G93.40 Referring Physician: Rafita Siddiqui Reason for Referral: Objectively assess swallow function, assess risk for aspiration, and determine recommendations for least restrictive diet textures and compensatory strategies to improve safety of swallow. Medical History: Pt was brought to [facility] ED 01/03/2024 w/ acute onset of [...] cup: Result: 2= enter airway/above vocal folds/ejected [facility] Thick Liquid via large single sip: cup: Result: 2= enter airway/above (more content not included)... Normal [facility] RESPIRATORY PANEL MOLECULARo n 01-04-2024 [...] Not Detected RSV B Not Detected Normal [facility] Comment on above: Performed By: #### L 801.1543, L505.5000, L801.1541 #### [facility] [address] [facility] [place], [address] 12 Lead EKGon 01-03-2024 12 Lead EKG [facility] Cardiovascular Services [address] [place] [address] 12 Lead EKG 01/03/24 1403 MR#: [id number] Acct: [id number] Name: CAROL ZARAGOZA Rep #: [id number] : 1950 73 From: Mil Snyder MD Attending Dr: Dr. Rafita Siddiqui, DO Status: A DM IN Ordering Dr: Xu Macias MD Date: 01/03/24 Location: [facility] Sex: F C Admitted: 01/03/24 Test Reason [...] ischemia Abnormal ECG Confirmed by Mil Snyder ([id number]), newspaper copy editor GEGE COSTELLO ([id number]) on 01/04/2024 1:37:03 PM Referred By: Xu Macias Confirmed By:Mil Snyder 01/04/24 1337 Date Mil Snyder MD CC: Dr. Xu Macias MD; Dr. Rafita Siddiqui DO; Dr. Harish Luis MD Signed Normal [facility] Basic Metabolic Profile (BMP )on 01-03-2024 BUN/CRE 8.3 RATIO Low 10-20 [facility] Comment on above: Order Comment: [id number] 563 URINE TOX Performed By: #### L 801.1543, L505.5000, L801.1541 #### [facility] [address] [place], [address] CA,Total 8.5 mg/dL Normal 8.5-10.1 [facility] Comment on above: Order Comment: [id number] 563 URINE TOX Performed By: #### L 801.1543, L505.5000, L801.1541 #### [facility] [address] [place], [address] Chloride [Moles/Vol] 109 mmol/L High 98-107 [facility] Comment on above: Order Comment: [id number] 563 URINE TOX Performed By: #### L 801.1543, L505.5000, L801.1541 #### [facility] [address] [place], [address] CO2 [Moles/Vol] 24.0 mmol/L Normal 21.0-32.0 [facility] Comment on above: Order Comment: [id number] 563 URINE TOX Performed By: #### L 801.1543, L505.5000, L801.1541 #### [facility] [address] [place], [address] Creatinine [Mass/Vol] 0.96 mg/dL Normal 0.55-1.02 [facility] Comment on above: Order Comment: [email or web address] 563 URINE TOX Result Comment: The validity of the calculated GFR GFRAA in patients over 70 years has not been determined. Clinical correlation is essential. Performed By: #### L 801.1543, L505.5000, L801.1541 #### [facility] [address] [place], [address] ECRCL 39.38 ml/min Normal [facility] Comment on above: Order Comment: [id number] 563 URINE TOX Performed By: #### L 801.1543, L505.5000, L801.1541 #### [facility] [address] [place], [address] EST GFR - AA 73 mL/min Normal >60 [facility] Comment on above: Order Comment: [id number] 563 URINE TOX Result Comment: Afri can [place] GFR Calc Performed By: #### L 801.1543, L505.5000, L801.1541 #### [facility] [address] [place], [address] GAP 5 Normal 5-15 [facility] Comment on above: Order Comment: [id number] 563 URINE TOX Performed By: #### L 801.1543, L505.5000, L801.1541 #### [facility] [address] [place], [address] GFR/1.73 sq M.predicted among non-blacks MDRD (S/P/Bld) [Vol rate/Area] 60 mL/min/{1.73_m2} Normal >60 [facility] Comment on above: Order Comment: [email or web address] 563 URINE TOX Result Comment: Non- GFR Calc Performed By: #### L 801.1543, L505.5000, L801.1541 #### [facility] [address] [place], [address] Glucose [Mass/Vol] 114 mg/dL High 74-106 [facility] Comment on above: Order Comment: [email or web address] 563 URINE TOX Result Comment: Fast ing Glucose result from 100 to 125 mg/dL suggests IMPAIRED HOMEOSTASIS per A.D.A. criteria. Performed By: #### L 801.1543, L505.5000, L801.1541 #### [facility] [address] [place], [address] Potassium [Moles/Vol] 3.4 mmol/L Low 3.5-5.1 [facility] Comment on above: Order Comment: [id number] 563 URINE TOX Performed By: #### L 801.1543, L505.5000, L801.1541 #### [facility] [address] [place], [address] Sodium [Moles/Vol] 138 mmol/L Normal 136-145 [facility] Comment on above: Order Comment: [id number] 563 URINE TOX Performed By: #### L 801.1543, L505.5000, L801.1541 #### [facility] [address] [place], [address] Urea nitrogen [Mass/Vol] 8 mg/dL Normal 7-18 [facility] Comment on above: Order Comment: [email or web address] 563 URINE TOX Performed By: #### L 801.1543, L505.5000, L801.1541 #### [facility] [address] [place], [address] Brain/Head without Contrasto n 01-03-2024 Brain/Head without Contrast [facility] Imaging Services [address] [place] [address] Brain/Head without Contrast MR#: [id number] Acct: [id number] Name: CAROL ZARAGOZA Rep #: [id number] : 1950 F 73 From: Jael fabian MD PCP: Dr. Harish Luis MD Status: REG ER Study: Brain/Head without Contrast Date of Exam: 12/17 10/09 Exam# [id number] Ordering Dr: Xu Macias MD 6:[id number] HISTORY: altered MS, headache. TECHNIQUE: Multiple axial [...] Xu Macias MD; Dr. Harish Luis MD [employer] Operator: Signed Normal [facility] CBC W/Diff, Automatedon 12-17 Absolute Lymph 0.75 X10 3/uL Low 0.83-4.51 [facility] Comment on above: Performed By: #### L 801.1543, L505.5000, L801.1541 #### [facility] [address] [place], [address] Absolute Neut 15.7 X10 3/uL High 2.0-7.7 [facility] Comment on above: Performed By: #### L 801.1543, L505.5000, L801.1541 #### [facility] [address] [place], [address] Basophils/100 WBC (Bld) 0.2 % Normal 0-1 [facility] Comment on above: Performed By: #### L 801.1543, L505.5000, L801.1541 #### [facility] [address] [place], [address] Eosinophils/100 WBC (Bld) 0.1 % Normal 0-5 [facility] Comment on above: Performed By: #### L 801.1543, L505.5000, L801.1541 #### [facility] [address] [place], [address] Erythrocyte distribution width (RBC) [Ratio] 14.6 % Normal 11.6-14.6 [facility] Comment on above: Performed By: #### L 801.1543, L505.5000, L801.1541 #### [facility] [address] [place], [address] Hematocrit (Bld) [Volume fraction] 34.6 % Low 37-47 [facility] Comment on above: Performed By: #### L 801.1543, L505.5000, L801.1541 #### [facility] [address] [place], [address] Hemoglobin (Bld) [Mass/Vol] 11.0 g/dL Low 12.0-15.0 [facility] Comment on above: Performed By: #### L 801.1543, L505.5000, L801.1541 #### [facility] [address] [place], [address] IG% 0.500 Normal 0.0-0.9 [facility] Comment on above: Result Comment: IG% - Immature Granulocytes (promyelocytes, myelocytes and metamyelocytes) > 1% indicates that a LEFT SHIFT is Present. Performed By: #### L 801.1543, L505.5000, L801.1541 #### [facility] [address] [place], [address] Lymphocytes/100 WBC (Bld) 4.3 % Low 19-41 [facility] Comment on above: Performed By: #### L 801.1543, L505.5000, L801.1541 #### [facility] [address] [place], [address] MCH (RBC) [Entitic mass] 30.5 pg Normal 27.0-32.0 [facility] Comment on above: Performed By: #### L 801.1543, L505.5000, L801.1541 #### [facility] [address] [place], [address] MCHC (RBC) [Mass/Vol] 31.8 g/dL Low 32-36 [facility] Comment on above: Performed By: #### L 801.1543, L505.5000, L801.1541 #### [facility] [address] [place], [address] MCV (RBC) [Entitic vol] 95.8 fL Normal 81-99 [facility] Comment on above: Performed By: #### L 801.1543, L505.5000, L801.1541 #### [facility] [address] [place], [address] Monocytes/100 WBC (Bld) 4.2 % Normal 0-10 [facility] Comment on above: Performed By: #### L 801.1543, L505.5000, L801.1541 #### [facility] [address] [place], [address] Neutrophils/100 WBC (Bld) 90.7 % High 47-70 [facility] Comment on above: Performed By: #### L 801.1543, L505.5000, L801.1541 #### [facility] [address] [place], [address] Nucleated RBC (Bld) [#/Vol] 0 10*3/uL Normal 0-5 [facility] Comment on above: Performed By: #### L 801.1543, L505.5000, L801.1541 #### [facility] [address] [place], [address] Platelet mean volume (Bld) [Entitic vol] 9.9 fL Normal 6.2-12.0 [facility] Comment on above: Performed By: #### L 801.1543, L505.5000, L801.1541 #### [facility] [address] [place], [address] Platelets (Bld) [#/Vol] 321 10*3/uL Normal 150-450 [facility] Comment on above: Performed By: #### L 801.1543, L505.5000, L801.1541 #### [facility] [address] [place], [address] RBC (Bld) [#/Vol] 3.61 10*6/uL Low 4.2-5.4 [facility] Comment on above: Performed By: #### L 801.1543, L505.5000, L801.1541 #### [facility] [address] [place], [address] RDW SD 50.7 fl High 35.1-43.9 [facility] Comment on above: Performed By: #### L 801.1543, L505.5000, L801.1541 #### [facility] [address] [place], [address] WBC (Bld) [#/Vol] 17.3 10*3/uL High 4.4-11.0 [facility] Comment on above: Performed By: #### L 801.1543, L505.5000, L801.1541 #### [facility] [address] [place], [address] Chest 1 View (Portable)on Chest 1 View (Portable) [facility] Imaging Services [address] [place] [address] Chest 1 View (Portable) MR#: [id number] Acct: [id number] Name: CAROL ZARAGOZA Rep #: [id number] : 1950 F 73 From: Jael fabian MD PCP: Dr. Harish Luis MD Status: REG ER Study: Chest 1 View (Portable) Date of Exam: 01/03/24 Exam# [id number] Ordering Dr: Xu Macias MD [id number] HISTORY: weakness, cough. TECHNIQUE: XR Chest 1 [...] Xu Macias MD; Dr. Harish Luis MD [employer] Operator: Signed Normal [facility] Emergency Department Summary on 01-03-2024 Emergency Department Summary [facility] Medical Records Department [address] [place] [address] Emergency Department Summary 01/03/24 MR#: [id number] Acct: [id number] Name: CAROL ZARAGOZA Rep #: [id number] : 1950 73 From: Xu Macias MD PCP: Dr. Harish Luis MD Status:ADM IN Location: [address] HPI History of Present Illness Chief Complaint: [...] her fracture from a couple months ago. [facility] Medical History Hypoxia Fracture of humeral head [...] pain Integumentary (more content not included)... Normal [facility] H AND P Exam - Hospitaliston 01-03-2024 H&P Exam - Hospitalist [facility] Medical Records Department [address] [place] [address] H P Exam - Hospitalist 01/03/24 1658 MR#: [id number] Acct: [id number] Name: CAROL ZARAGOZA Rep #: [id number] : 1950 73 From: Zia Posey MD PCP: Dr. Harish Luis MD Status:ADM IN Location: [place] [id number] HPI - General General Date of Admission: [...] dysphagia. She was told to follow-up with [facility]. Her denies prior history of stroke. She had similar episodes of confusion in the past. She denies burning micturition or change in the color. When I saw the patient, she was coughing up after drinking Coke. In ED, low-grade fever temperature 100 Fahrenheit and tachypnea but no tachycardia or hypoxia. [facility] Medical History Hypoxia Fracture of humeral [...] CVS: No chest pain or tightness. Denies [place] Gastrointestinal: History of aspiration. Dysphagia. Denies coffee [...] complaints, exce (more content not included)... Normal [facility] L501.4020on 01-03-2024 TROPONIN-I HS 3 pg/mL Normal 3.0-54.0 [facility] Comment on above: Order Comment: [email or web address] 563 URINE TOX Result Comment: Natalia white Note: New Test Units and Gender Specific Reference Ranges. For more information see Policy Stat Procedure [place] High Sensitivity Troponin (TNIH) and attachments. Performed By: #### L 801.1543, L505.5000, L801.1541 #### [facility] [address] [place], [address] Lactic Acidon 01-03-2024 Lactate [Moles/Vol] 1.0 mmol/L Normal 0.4-1.9 [facility] Comment on above: Order Comment: [id number] 563 URINE TOX Performed By: #### L 801.1543, L505.5000, L801.1541 #### [facility] [address] [place], [address] Legionella Antigen Urineon 1 LEGU Comments: Only Recom mended for severe cases of pneumonia Only Recommended for severe cases of pneumonia URINE, CATHETER Legionella Antigen result interpretation: L pneumo Ag Ur Ql Negative Presumptive negative for Legionella pneumophila serogroup 1 antigen in urine, suggesting no recent or current infection. Legionella Ag, Urine Negative (See interpretation below) Normal [facility] Comment on above: Performed By: #### L 501.5200 #### [facility] [address] [place], [address] M100.019on 01-03-2024 M100.019 Negative Normal [facility] Comment on above: Performed By: #### L 801.1543, L505.5000, L801.1541 #### [facility] [address] [place], [address] M100.678on 01-03-2024 M100.678 Pending SARS-CoV-2 (COVID 19) Negative INFLUENZA A Negative INFLUENZA B Negative RSV PCR Negative Normal [facility] Comment on above: Performed By: #### L 801.1543, L505.5000, L801.1541 #### [facility] [address] [place], [address] Magnesiumon 01-03-2024 Magnesium [Mass/Vol] 1.9 mg/dL Normal 1.6-2.6 [facility] Comment on above: Performed By: #### L 501.5200 #### [facility] [address] [place], [address] Strep pneumoniae Antig(UR,CS F)on 01-03-2024 STPAG Comments: [...] Test Negative URINE (See interpretation below) Normal [facility] Comment on above: Performed By: #### L 501.5200 #### [facility] [address] [place], [address] Urinalysis, Completeon 01-02 EPI,RENAL 0-5 SEEN Normal 0-5 [facility] Comment on above: Order Comment: [id number] 563 URINE TOX Performed By: #### L 801.1543, L505.5000, L801.1541 #### [facility] [address] [place], [address] RBC 0-5 SEEN Normal 0-5 [facility] Comment on above: Order Comment: [email or web address] 563 URINE TOX Performed By: #### L 801.1543, L505.5000, L801.1541 #### [facility] [address] [place], [address] WBC 25-50 SEEN Normal 0-5 [facility] Comment on above: Order Comment: 764 563 URINE TOX Performed By: #### L 801.1543, L505.5000, L801.1541 #### [facility] [address] [place], [address] YEAST 1+ /hpf Normal None Seen [facility] Comment on above: Order Comment: [email or web address] 563 URINE TOX Performed By: #### L 801.1543, L505.5000, L801.1541 #### [facility] [address] [place], [address] BACTERIA 4+ /hpf Normal None Seen [facility] Comment on above: Order Comment: [email or web address] 563 URINE TOX Performed By: #### L 801.1543, L505.5000, L801.1541 #### [facility] [address] [place], [address] EPI,SQUAMOUS 0 SEEN Normal 5-10 [facility] Comment on above: Order Comment: [email or web address] 563 URINE TOX Performed By: #### L 801.1543, L505.5000, L801.1541 #### [facility] [address] [place], [address] Mucus Ql (Urine sed) 0 SEEN Normal [facility] Comment on above: Order Comment: [email or web address] 563 URINE TOX Performed By: #### L 801.1543, L505.5000, L801.1541 #### [facility] [address] [place], [address] Miscellaneous Lab Procedureo n 12-18-2023 MISC LAB TEST Normal [facility] Comment on above: Order Comment: [id number] URINE TOX Result Comment: [id number] 6+OXYCODONE-BUND (ng/mL) DRUG RESULT SCREEN CUTOFF [...] includes Oxydodone and Oxymorphone. TESTING PERFORMED AT [facility]. ORIGINAL REPORT ON FILE IN LAB CONTAINS ADDITIONAL TEST SITE INFORMATION. Performed By: #### L 801.1543, L505.5000, L801.1541 #### [facility] [address] [place], [address] [facility] 12-18-2023 [facility] TEST 2 Normal [facility] Comment on above: Order Comment: [id number] TRAMADOL Result Comment: TEST RESULTS LIMITS Tramadol, Urine Tramadol Screen, Urine Negative ng/mL [id number] TESTING PERFORMED AT [facility]. ORIGINAL REPORT ON FILE IN LAB CONTAINS ADDITIONAL TEST SITE INFORMATION. Performed By: #### L 801.1543, L505.5000, L801.1541 #### [facility] [address] [place], [address] Urine Drug Screen (VISTA)on 12-12-2023 AMPHETAMINES Negative Normal <1000 ng/mL [facility] Comment on above: Order Comment: MEDTO X Performed By: #### L 801.1543, L505.5000, L801.1541 #### [facility] [address] [place], [address] BARBITIURATES Negative Normal < 200 ng/mL [facility] Comment on above: Order Comment: MEDTO X Performed By: #### L 801.1543, L505.5000, L801.1541 #### [facility] [address] [place], [address] BENZODIAZIPINE Positive Abnormal < 200 ng/mL [facility] Comment on above: Order Comment: MEDTO X Performed By: #### L 801.1543, L505.5000, L801.1541 #### [facility] [address] [place], [address] COCAINE Negative Normal < 300 ng/mL [facility] Comment on above: Order Comment: MEDTO X Performed By: #### L 801.1543, L505.5000, L801.1541 #### [facility] [address] [place], [address] ECSTACY Negative Normal < 500 ng/mL [facility] Comment on above: Order Comment: MEDTO X Performed By: #### L 801.1543, L505.5000, L801.1541 #### [facility] [address] [place], [address] METHADONE Negative Normal < 300 ng/mL [facility] Comment on above: Order Comment: MEDTO X Performed By: #### L 801.1543, L505.5000, L801.1541 #### [facility] [address] [place], [address] OPIATES Negative Normal < 300 ng/mL [facility] Comment on above: Order Comment: MEDTO X Performed By: #### L 801.1543, L505.5000, L801.1541 #### [facility] [address] [place], [address] PCP Negative Normal < 25 ng/mL [facility] Comment on above: Order Comment: MEDTO X Performed By: #### L 801.1543, L505.5000, L801.1541 #### [facility] [address] [place], [address] THC Negative Normal < 50 ng/mL [facility] Comment on above: Order Comment: MEDTO X Performed By: #### L 801.1543, L505.5000, L801.1541 #### [facility] [address] [place], [address] VISTA UDS PH 6 Normal [facility] Comment on above: Order Comment: MEDTO X Performed By: #### L 801.1543, L505.5000, L801.1541 #### [facility] [address] [place], [address] Orthopedic Visit Reporton Orthopedic Visit Report [facility] [address] [place] [address] 5 [place] [address] OFFICE VISIT Date of Service: 12/06/23 MR#: [id number] Acct: [id number] Name: CAROL ZARAGOZA Rep #: [id number] : 1950 Provider: Dr. Daniel angelo MD Age/Sex: 73/F Location: [facility].JAVIER Status: Signed Intake Vital Signs 11/02/23 08:56 [...] a cognitive (more content not included)... Normal [facility] PT D/C Summary (1)on 024 PT D/C Summary (1) [facility] [address] [place] [address] / REHABILITATION SERVICES DISCHARGE SUMMARY MR#: [id number] Acct: [id number] Name: CAROL ZARAGOZA Rep #: [id number] : 1950 73 From: Doni Flores DPT, OCS, CSCS Referring Dr.: Dr. Daniel Lee MD Status: R EG RCR Insurance: [employer] [employer]ICARE SELF PAY INSURANCE Discharge Summary [...] please feel free to call me at [phone]. Thank you for the referral of this patient. Sincerely, Doni Flores, DPT, OCS, CSCS Balance/Gait/Functional tests Balance/Special Test Scores Functional Gait Assessment Score: 19 % Disability: 36.6700 CATSIB Score (Max score 120 seconds): 105 Quick DASH Score: 47.7250 Improvement % Improvement: 0 11/28/23 1118 CC: Dr. Daniel Lee MD; Dr. Harish Luis MD EBG Signed Normal [facility] Orthopedic Visit Reporton Orthopedic Visit Report [facility] [address] [place] [address] OFFICE VISIT Date of Service: 11/02/23 MR#: [id number] Acct: [id number] Name: CAROL ZARAGOZA Rep #: [id number] : 1950 Provider: Dr. Daniel angelo MD Age/Sex: 73/F Location: [facility].JAVIER Status: Signed Intake Vital Signs 10/26/23 15:30 [...] 7.5 mg PO BID Check with primary 12/01/20 08/16/24 History doctor clonazepam 1 mg tablet 1 [...] past year?: Yes (07/27/23 right shoulder injury) [facility] Medical History Hypoxia Fracture of humeral [...] Closed frac (more content not included)... Normal [facility] Re-Evaluation - PT (1)on Re-Evaluation - PT (1) [facility] [address] [place] [address]. [address] [place] [address] / REEVALUATION / MEDICARE RECERTIFICATION PHYSICAL THERAPY MR#: [id number] Acct: [id number] Name: CAROL ZARAGOZA Rep #: [id number] : 1950 73 From: Doni Mark DPT, OCS, CSCS Referring Dr.: Dr. Daniel Lee MD Status:REG RCR Insurance: [facility] CARE MEDICARE SELF PAY INSURANCE Re-Evaluation Intro: [...] do not hesitate to contact me at [phone] by phone or if you have questions or concerns regarding this new plan of care! Sincerely, Doni Flores, JOSET, OCS, CSCS 11/02/23 1055 CC: Dr. Daniel Lee MD; Dr. Harish Luis MD EBG Signed For Medicare only, by signing this I certify the plan of care. _ Physicians Signature Date Normal [facility] Re-Evaluation - PT (1)on Re-Evaluation - PT (1) [facility] [address] [place] [address] / REEVALUATION / MEDICARE RECERTIFICATION PHYSICAL THERAPY MR#: [id number] Acct: [id number] Name: CAROL ZARAGOZA Rep #: [id number] : 1950 73 From: Doni Flores DPT, [...] do not hesitate to contact me at [phone] by phone or if you have questions or concerns regarding this new plan of care! Sincerely, Doni Flores, DPT, OCS, CSCS 09/27/23 9507 CC: Dr. Daniel Lee MD; Dr. Harish Luis MD EBG Signed For Medicare only, by signing this I certify the plan of care. _ Physicians Signature Date Normal [facility] Absolute lymphocyte countOrd ered By: Tony Haque on 07-30-2023 Lymphocytes Auto (Unsp spec) [#/Vol] 0.79 10*3/uL 0.83-4.51 [facility] Automated lymphocyte count a s percentage of total leukocytesOrdered By: Tony Haque on 07-30-2023 Lymphocytes/100 WBC Auto (Unsp spec) 8.8 % 19-41 [facility] Base excessOrdered By: Guilherme Collins on 07-30-2023 Base excess Calc (BldV) [Moles/Vol] -2 mmol/L -1.0-3.5 [facility] Basophil percentageOrdered B y: Tony Haque on 07-30-2023 Basophil percentage 0 SEEN /hpf 0-5 [facility] Ammonia (P) [Moles/Vol] 27.0 umol/L 11-32 [facility] Basophils/100 WBC (Bld) 0.3 % 0-1 [facility] Chloride [Moles/Vol] 108 mmol/L 98-107 [facility] Eosinophils/100 WBC (Bld) 0.2 % 0-5 [facility] Glucose [Mass/Vol] 110 mg/dL 74-106 [facility] Comment on above: Fasting Glucose resu lt from 100 to 125 mg/dL suggests IMPAIRED HOMEOSTASIS per A.D.A. criteria. Hemoglobin (Bld) [Mass/Vol] 10.9 g/dL 12.0-15.0 [facility] Lactate [Moles/Vol] 3.4 mmol/L 0.4-2.0 [facility] Comment on above: Critical Result(s) C alled at: 14:41:53 07/30/2023 by: Ramiro Stephenson RN (ER). Results read back by same. Monocytes/100 WBC (Bld) 8.2 % 0-10 [facility] Neutrophils (Bld) [#/Vol] 7.4 10*3/uL 2.0-7.7 [facility] Neutrophils/100 WBC (Bld) 81.8 % 47-70 [facility] Potassium [Moles/Vol] 3.4 mmol/L 3.5-5.1 [facility] Sodium [Moles/Vol] 139 mmol/L 136-145 [facility] WBC (Bld) [#/Vol] 9.0 10*3/uL 4.4-11.0 [facility] Bilirubin Test strip Ql (U)O rdered By: Tony Haque on 07-30-2023 Bilirubin Ql (U) 1 mg/dL Negative [facility] Comment on above: COLOR OF URINE MAY A FFECT DIPSTICK RESULTS. Blood manual differential co mment interpretation (narrative result)Ordered By: Tony Haque on 07-30-2023 Manual differential comment [place] (Bld) [Interp] See comment [facility] Comment on above: BANDS NOTED CO2 (BldV) [Moles/Vol]Ordere d By: Guilherme Collins on 07-30-2023 CO2 [Moles/Vol] 23 mmol/L 23-33 [facility] Determination of erythrocyte mean corpuscular volume (MCV)Ordered By: oTny Haque on 07-30-2023 MCV (RBC) [Entitic vol] 96.8 fL 81-99 [facility] Erythrocyte distribution wid th ratioOrdered By: Tony Haque on 07-30-2023 Erythrocyte distribution width (RBC) [Ratio] 13.7 % 11.6-14.6 [facility] Erythrocyte distribution wid th standard deviationOrdered By: Tony Haque on 07-30-2023 Erythrocyte distribution width (RBC) [Entitic vol] 48.8 fL 35.1-43.9 [facility] Hematocrit Auto (Bld) [Volum e fraction]Ordered By: Tony aHque on 07-30-2023 Hematocrit (Bld) [Volume fraction] 33.8 % 37-47 [facility] Immature granulocytes/100 WB C Auto (Bld)Ordered By: Tony Haque on 07-30-2023 Immature granulocytes/100 WBC (Bld) 0.700 % 0.0-0.9 [facility] Comment on above: IG% - Immature Granu locytes (promyelocytes, myelocytes and metamyelocytes) > 1% indicates that a LEFT SHIFT is Present. Ketones Test strip Ql (U)Ord ered By: Tony Haque on 07-30-2023 Ketones Ql (U) 5 mg/dl Negative [facility] - Chemistry and C hemistry - challengeOrdered By: Anastasia Khan on 07-30-2023 Magnesium [Mass/Vol] 1.7 mg/dL 1.6-2.6 [facility] Natriuretic peptide B (Bld) [Mass/Vol] 88.3 pg/mL 0-100 [facility] - Chemistry and C hemistry - challengeOrdered By: Guilherme Collins on 07-30-2023 HCO3 (Bld) [Moles/Vol] 22 mmol/L - [facility] - Chemistry and C hemistry - challengeOrdered By: Tony Haque on 07-30-2023 CO2 [Moles/Vol] 22.0 mmol/L 21.0-32.0 [facility] Urea nitrogen/Creatinine [Mass ratio] 12.1 mg/mg 10- [facility] - Drug toxicology Ordered By: Tnoy Haque on 07-30-2023 Amphetamines Ql (U) Negative <1000 ng/mL [facility] Benzodiazepines Ql (U) Positive < 200 ng/mL [facility] Cannabinoids Screen Ql (U) Negative < 50 ng/mL [facility] Cocaine Ql (U) Negative < 300 ng/mL [facility] Opiates Ql (U) Negative < 300 ng/mL [facility] - Hematology and Cell countsOrdered By: Tony Haque on 07-30-2023 MCH (RBC) [Entitic mass] 31.2 pg 27.0-32.0 [facility] MCHC (RBC) [Mass/Vol] 32.2 g/dL 32-36 [facility] Nucleated RBC/100 WBC (Bld) [Ratio] 0 % 0-5 [facility] Platelet mean volume (Bld) [Entitic vol] 10.6 fL 6.2-12.0 [facility] Platelets (Bld) [#/Vol] 317 10*3/uL 150-450 [facility] - Microbiology an d Antimicrobial susceptibilityOrdered By: Tony Haque on 07-30-2023 SARS-CoV-2 (COVID-19) RNA ANTIONE+probe Ql (Unsp spec) [facility] Mucus LM Ql (Urine sed)Order ed By: Tony Haque on 07-30-2023 Mucus Ql (Urine sed) 0 SEEN /hpf [facility] Nitrite Test strip Ql (U)Ord ered By: Tony Haque on 07-30-2023 Nitrite Ql (U) Negative Negative [facility] No Panel InformationOrdered By: Tony Haque on 07-30-2023 MDMA (Ecstasy) Screen Negative < 500 ng/mL [facility] Urine Barbiturates Screen Negative < 200 ng/mL [facility] Urine Drug Screen Comment [facility] Comment on above: CONFIRMATORY TESTING [...] Urine Methadone Screen Negative < 300 ng/mL [facility] Urine RBC 0 SEEN /hpf 0-5 [facility] D-Dimer Quantitative (PE/DVT) 3.19 FEU/ug/m 0.27-0.49 [facility] Comment on above: D-Dimer ELEVATED (>0 .49): Additional studies and clinicalassessments are indicated to conclude diagnosis of:Deep Vein Thrombosis (DVT) or Pulmonary Embolism (PE) Estimated Creatinine Clearance Calc 22.77 ml/min [facility] Estimated GFR (MDRD) Amer 37 mL/min >60 [facility] Comment on above: GFR Calc Estimated GFR (MDRD) Non-Af Amer 31 mL/min >60 [facility] Comment on above: Non- GFR Calc Troponin I High Sensitivity 6 pg/mL 3.0-54.0 [facility] Comment on above: Please Note: New Nu t Units and Gender Specific Reference Ranges. For more information see Policy Stat Procedure [place] High Sensitivity Troponin (TNIH) and attachments. No Panel InformationOrdered By: Guilherme Collins on 07-30-2023 Blood Gas Oxygen Percent 21.0 [facility] Blood Gas Sample Site Not entered [facility] Blood Gas Specimen Type [place] [facility] Oxygen Delivery Device Not entered [facility] PCO2 venousOrdered By: Guilherme Collins on 07-30-2023 CO2 (BldV) [Partial pressure] 29.8 mm[Hg] 41-51 [facility] PO2 venousOrdered By: Guilherme reyes on 07-30-2023 Oxygen (BldV) [Partial pressure] 73 mm[Hg] 25-40 [facility] Protein Test strip Ql (U)Ord ered By: Tony Haque on 07-30-2023 Protein Ql (U) 15 mg/dl Negative [facility] RBC Auto (Bld) [#/Vol]Ordere d By: Tony Haque on 07-30-2023 RBC (Bld) [#/Vol] 3.49 10*6/uL 4.2-5.4 [facility] Review by pathologistOrdered By: Tony Haque on 07-30-2023 Pathologist review [place] (Unsp spec) [Interp] July [facility] Serum or plasma calcium rosangela urement (mass/volume)Ordered By: Tony Haque on 07-30-2023 Calcium [Mass/Vol] 8.6 mg/dL 8.5-10.1 [facility] Serum or plasma creatinine m easurement (mass/volume)Ordered By: Tony Haque on 07-30-2023 Creatinine [Mass/Vol] 1.74 mg/dL 0.55-1.02 [facility] Comment on above: The validity of the calculated GFR & GFRAA in patients over 70 years has not been determined. Clinical correlation is essential. Serum or plasma urea nitroge n measurement (mass/volume)Ordered By: Tony Haque on 07-30-2023 Urea nitrogen [Mass/Vol] 21 mg/dL 7-18 [facility] Smudge cell detectionOrdered By: Tony Haque on 07-30-2023 Smudge cells LM Ql (Bld) 1+ [facility] Squamous epithelial cells de tection in urine sediment by light microscopyOrdered By: Tony Haque on 07-30-2023 Epithelial cells.squamous LM Ql (Urine sed) 0 SEEN /hpf 5-10 [facility] Thin prep Papanicolaou smear with manual screeningOrdered By: Tony Haque on 07-30-2023 Thin prep Papanicolaou smear with manual screening 9 5-15 [facility] Urine blood detectionOrdered By: Tony Haque on 07-30-2023 RBC Ql (U) Negative Negative [facility] Urine clarityOrdered By: Marixa Haque on 07-30-2023 Clarity (U) Clear Clear [facility] Urine color determinationOrd ered By: Tony Haque on 07-30-2023 Color (U) Yellow Yellow [facility] Urine glucose detectionOrder ed By: Tony Haque on 07-30-2023 Glucose Ql (U) Normal mg/dl Normal [facility] Urine leukocyte esterase det ection by dipstickOrdered By: Tony Haque on 07-30-2023 Leukocyte esterase Test strip Ql (U) 25 /ul Negative [facility] Urine pHOrdered By: Tony mariscal on 07-30-2023 pH (U) 5.0 [pH] 5.0 - 8.0 [facility] Urine phencyclidine (PCP) de tectionOrdered By: Tony Haque on 07-30-2023 Phencyclidine Ql (U) Negative < 25 ng/mL [facility] Urine sediment bacteria coun t by microscopy (number/high power field)Ordered By: Tony Haque on 07-30-2023 Bacteria LM.HPF (Urine sed) [#/Area] 0 /[HPF] None Seen [facility] Urine specific gravity measu rementOrdered By: Tony Haque on 07-30-2023 Specific gravity (U) [Rel density] 1.020 1.002-1.03 0 [facility] Urine urobilinogen measureme ntOrdered By: Tony Haque on 07-30-2023 Urobilinogen Ql (U) 1 mg/dl Normal [facility] Venous blood pH measurementO rdered By: Guilherme Collins on 07-30-2023 pH (BldV) 7.47 [pH] 7.32-7.42 [facility] Vital signsOrdered By: Guilherme Collins on 07-30-2023 Oxygen saturation in Blood 96 % 50-70 [facility] Absolute lymphocyte countOrd ered By: Harish Luis on 07-11-2023 Lymphocytes Auto (Unsp spec) [#/Vol] 1.63 10*3/uL 0.83-4.51 [facility] Automated lymphocyte count a s percentage of total leukocytesOrdered By: Harish Luis on 07-11-2023 Lymphocytes/100 WBC Auto (Unsp spec) 26.4 % 19-41 [facility] Basophil percentageOrdered B y: Harish Luis on 07-11-2023 Basophils/100 WBC (Bld) 1.0 % 0-1 [facility] Bilirubin [Mass/Vol] 0.40 mg/dL 0.20-1.00 [facility] Comment on above: For patients on eltr ombopag therapy, use of Dimension [place] TBIL is not recommended. Chloride [Moles/Vol] 109 mmol/L 98-107 [facility] Cholesterol [Mass/Vol] 314 mg/dL <200 [facility] Comment on above: <200 mg/dL Desirable 200-240 mg/dL Borderline >240 mg/dL High Risk Eosinophils/100 WBC (Bld) 2.3 % 0-5 [facility] Glucose [Mass/Vol] 114 mg/dL 74-106 [facility] Comment on above: Fasting Glucose resu lt from 100 to 125 mg/dL suggests IMPAIRED HOMEOSTASIS per A.D.A. criteria. Hemoglobin (Bld) [Mass/Vol] 12.9 g/dL 12.0-15.0 [facility] Monocytes/100 WBC (Bld) 6.5 % 0-10 [facility] Neutrophils (Bld) [#/Vol] 3.9 10*3/uL 2.0-7.7 [facility] Neutrophils/100 WBC (Bld) 63.3 % 47-70 [facility] Potassium [Moles/Vol] 3.6 mmol/L 3.5-5.1 [facility] Protein [Mass/Vol] 7.2 g/dL 6.4-8.2 [facility] Sodium [Moles/Vol] 141 mmol/L 136-145 [facility] Triglyceride [Mass/Vol] 135 mg/dL <199 [facility] Comment on above: The drugs N-Acetylcy steine and Metamizole may falsely depress this assay.Serum Triglycerides Reference Interval Normal <150 mg/dL Borderline high 150 - 199 mg/dL High 200 - 499 mg/dL Very High > or = 500 mg/dL WBC (Bld) [#/Vol] 6.2 10*3/uL 4.4-11.0 [facility] Determination of erythrocyte mean corpuscular volume (MCV)Ordered By: Harish Luis on 07-11-2023 MCV (RBC) [Entitic vol] 97.6 fL 81-99 [facility] Erythrocyte distribution wid th ratioOrdered By: Harish Luis on 07-11-2023 Erythrocyte distribution width (RBC) [Ratio] 14.1 % 11.6-14.6 [facility] Erythrocyte distribution wid th standard deviationOrdered By: [facility] on 07-11-2023 Erythrocyte distribution width (RBC) [Entitic vol] 51.5 fL 35.1-43.9 [facility] Hematocrit Auto (Bld) [Volum e fraction]Ordered By: [facility] Toby 07-11-2023 Hematocrit (Bld) [Volume fraction] 40.7 % 37-47 [facility] Immature granulocytes/100 WB C Auto (Bld)Ordered By: [facility] 07-11-20[facility] Immature granulocytes/100 WBC (Bld) 0.500 % 0.0-0.9 [facility] Comment on above: IG% - Immature Granu locytes (promyelocytes, myelocytes and metamyelocytes) > 1% indicates that a LEFT SHIFT is Present. Laboratory - Chemistry and C hemistry - challengeOrdered By: Harish Luis on 07-11-2023 Albumin/Globulin [Mass ratio] 0.8 {ratio} 0.9-2.4 [facility] ALP [Catalytic activity/Vol] 103 U/L 45-117 [facility] ALT [Catalytic activity/Vol] 26 U/L 13-56 [facility] Cholesterol in HDL [Mass/Vol] 79 mg/dL >40 [facility] Comment on above: The drugs N-Acetylcy steine and Metamizole may falsely depress this assay. Reference Range HDL <40 mg/dL Low HDL Cholesterol HDL >or= 60 mg/dL High HDL Cholesterol Cholesterol in LDL [Mass/Vol] 208 mg/dL 0-130 [facility] CO2 [Moles/Vol] 26.0 mmol/L 21.0-32.0 [facility] Globulin (S) [Mass/Vol] 4.1 g/dL 2.2-4.2 [facility] Urea nitrogen/Creatinine [Mass ratio] 8.4 mg/mg 10-20 [facility] - Hematology and Cell countsOrdered By: Harish Luis on 07-11-2023 MCH (RBC) [Entitic mass] 30.9 pg 27.0-32.0 [facility] MCHC (RBC) [Mass/Vol] 31.7 g/dL 32-36 [facility] Nucleated RBC/100 WBC (Bld) [Ratio] 0 % 0-5 [facility] Platelet mean volume (Bld) [Entitic vol] 9.7 fL 6.2-12.0 [facility] Platelets (Bld) [#/Vol] 433 10*3/uL 150-450 [facility] No Panel InformationOrdered By: Harish Luis on 07-11-2023 Estimated GFR (MDRD) Amer 74 mL/min >60 [facility] Comment on above: GFR Calc Estimated GFR (MDRD) Non-Af Amer 61 mL/min >60 [facility] Comment on above: Non- GFR Calc Vitamin D 25-Hydroxy 24.5 ng/mL [facility] Comment on above: Vitamin D 25(OH) Sta tus Range Deficiency <20 ng/mL (50nmol/L) Insufficiency 20 - 30 ng/mL (50 - 75 nmol/L) Sufficiency 30 - 100 ng/mL (75 - 250 nmol/L) Toxicity >100 ng/mL (>250 nmol/L) VLDL Cholesterol 27 mg/dL 5-40 [facility] RBC Auto (Bld) [#/Vol]Ordere d By: Harish Luis on 07-11-2023 RBC (Bld) [#/Vol] 4.17 10*6/uL 4.2-5.4 [facility] Serum or plasma calcium rosangela urement (mass/volume)Ordered By: Harish Luis on 07-11-2023 Calcium [Mass/Vol] 8.8 mg/dL 8.5-10.1 [facility] Serum or plasma creatinine m easurement (mass/volume)Ordered By: Harish Luis on 07-11-2023 Creatinine [Mass/Vol] 0.96 mg/dL 0.55-1.02 [facility] Comment on above: The validity of the calculated GFR & GFRAA in patients over 70 years has not been determined. Clinical correlation is essential. Serum or plasma thyroid stim ulating hormone (TSH) measurement (units/volume)Ordered By: Harish Luis on 07-11-2023 TSH Qn 0.92 uIU/mL 0.358-3.74 [facility] Serum or plasma urea nitroge n measurement (mass/volume)Ordered By: Harish Luis on 07-11-2023 Urea nitrogen [Mass/Vol] 8 mg/dL 7-18 [facility] Thin prep Papanicolaou smear with manual screeningOrdered By: Harish Luis on 07-11-2023 Thin prep Papanicolaou smear with manual screening 3.1 g/dL 3.2-5.0 [facility] Thin prep Papanicolaou smear with manual screening 18 U/L 15-37 [facility] [facility] Thin prep Papanicolaou smear with manual screening 6 5-15 [facility] Culture, urineOrdered By: Levar Luis on 06-27-2023 Bacteria identified Cx Nom (U) Staphylococcus simulans [facility] Absolute lymphocyte countOrd ered By: Harish Luis on 01-01-2023 Lymphocytes Auto (Unsp spec) [#/Vol] 1.14 10*3/uL 0.83-4.51 [facility] Basophil percentageOrdered B y: Harish Luis on 01-01-2023 Basophils/100 WBC (Bld) 0.8 % 0-1 [facility] Bilirubin [Mass/Vol] 0.40 mg/dL 0.20-1.00 [facility] Comment on above: For patients on eltr ombopag therapy, use of Dimension [place] TBIL is not recommended. Chloride [Moles/Vol] 113 mmol/L 98-107 [facility] Eosinophils/100 WBC (Bld) 1.7 % 0-5 [facility] Glucose [Mass/Vol] 124 mg/dL 74-106 [facility] Comment on above: Fasting Glucose resu lt from 100 to 125 mg/dL suggests IMPAIRED HOMEOSTASIS per A.D.A. criteria. Neutrophils (Bld) [#/Vol] 4.5 10*3/uL 2.0-7.7 [facility] Neutrophils/100 WBC (Bld) 72.0 % 47-70 [facility] Potassium [Moles/Vol] 3.3 mmol/L 3.5-5.1 [facility] Protein [Mass/Vol] 6.4 g/dL 6.4-8.2 [facility] Sodium [Moles/Vol] 144 mmol/L 136-145 [facility] WBC (Bld) [#/Vol] 6.3 10*3/uL 4.4-11.0 [facility] Blood erythrocytes count (nu mber/volume)Ordered By: Harish Lusi on 01-01-2023 RBC (Bld) [#/Vol] 3.99 10*6/uL 4.2-5.4 [facility] Blood hemoglobin measurement (mass/volume)Ordered By: Harish Luis on 01-01-2023 Hemoglobin (Bld) [Mass/Vol] 12.7 g/dL 12.0-15.0 [facility] Blood lymphocytes/100 leukoc ytesOrdered By: Harish Luis on 01-01-2023 Lymphocytes/100 WBC (Bld) 18.1 % 19-41 [facility] Blood monocytes/100 leukocyt esOrdered By: Harish Luis on 01-01-2023 Monocytes/100 WBC (Bld) 7.2 % 0-10 [facility] Blood platelet mean volumeOr dered By: Harish Luis on 01-01-2023 Platelet mean volume (Bld) [Entitic vol] 10.2 fL 6.2-12.0 [facility] Determination of erythrocyte mean corpuscular volume (MCV)Ordered By: Harish Luis on 01-01-2023 MCV (RBC) [Entitic vol] 96.7 fL 81-99 [facility] Hematocrit Auto (Bld) [Volum e fraction]Ordered By: Harish Luis on 01-01-2023 Hematocrit (Bld) [Volume fraction] 38.6 % 37-47 [facility] Laboratory - Chemistry and C hemistry - challengeOrdered By: Harish Luis on 01-01-2023 ALP [Catalytic activity/Vol] 106 U/L 45-117 [facility] ALT [Catalytic activity/Vol] 14 U/L 13-56 [facility] CO2 [Moles/Vol] 22.0 mmol/L 21.0-32.0 [facility] Globulin (S) [Mass/Vol] 3.6 g/dL 2.2-4.2 [facility] Urea nitrogen/Creatinine [Mass ratio] 8.0 mg/mg 10-20 [facility] Laboratory - Hematology and Cell countsOrdered By: Harish Luis on 01-01-2023 Erythrocyte distribution width (RBC) [Entitic vol] 49.0 fL 35.1-43.9 [facility] Erythrocyte distribution width (RBC) [Ratio] 13.7 % 11.6-14.6 [facility] Immature granulocytes/100 WBC (Bld) 0.200 % 0.0-0.9 [facility] Comment on above: IG% - Immature Granu locytes (promyelocytes, myelocytes and metamyelocytes) > 1% indicates that a LEFT SHIFT is Present. MCH (RBC) [Entitic mass] 31.8 pg 27.0-32.0 [facility] Nucleated RBC/100 WBC (Bld) [Ratio] 0 % 0-5 [facility] MCHC Auto (RBC) [Mass/Vol]Or dered By: Harish Luis on 01-01-2023 MCHC (RBC) [Mass/Vol] 32.9 g/dL 32-36 [facility] No Panel InformationOrdered By: Harish Luis on 01-01-2023 Estimated GFR (MDRD) Amer 61 mL/min >60 [facility] Comment on above: GFR Calc Estimated GFR (MDRD) Non-Af Amer 51 mL/min >60 [facility] Comment on above: Non- GFR Calc Thyroid Stimulating Hormone (TSH) 0.17 uIU/mL 0.358-3.74 [facility] Vitamin D 25-Hydroxy 39.2 ng/mL [facility] Comment on above: Vitamin D 25(OH) Sta tus Range Deficiency <20 ng/mL (50nmol/L) Insufficiency 20 - 30 ng/mL (50 - 75 nmol/L) Sufficiency 30 - 100 ng/mL (75 - 250 nmol/L) Toxicity >100 ng/mL (>250 nmol/L) Platelets bldOrdered By: Harish Luis on 01-01-2023 Platelets (Bld) [#/Vol] 345 10*3/uL 150-450 [facility] Serum or plasma albumin rosangela urement (mass/volume)Ordered By: Harish Luis on 01-01-2023 Albumin [Mass/Vol] 2.8 g/dL 3.2-5.0 [facility] Serum or plasma albumin/glob ulin mass ratioOrdered By: Harish Luis on 01-01-2023 Albumin/Globulin [Mass ratio] 0.8 {ratio} 0.9-2.4 [facility] Serum or plasma calcium rosangela urement (mass/volume)Ordered By: Harish Luis on 01-01-2023 Calcium [Mass/Vol] 8.5 mg/dL 8.5-10.1 [facility] Serum or plasma creatinine m easurement (mass/volume)Ordered By: Harish Luis on 01-01-2023 Creatinine [Mass/Vol] 1.12 mg/dL 0.55-1.02 [facility] Comment on above: The validity of the calculated GFR & GFRAA in patients over 70 years has not been determined. Clinical correlation is essential. Serum or plasma urea nitroge n measurement (mass/volume)Ordered By: Harish Lusi on 01-01-2023 Urea nitrogen [Mass/Vol] 9 mg/dL 7-18 [facility] Thin prep Papanicolaou smear with manual screeningOrdered By: Harish Luis on 01-01-2023 Thin prep Papanicolaou smear with manual screening 12 U/L 15-37 [facility] Thin prep Papanicolaou smear with manual screening 9 5-15 [facility] Basophil percentageOrdered B y: Jesse Camejo on 11-04-2022 Chloride [Moles/Vol] 117 mmol/L 98-107 [facility] Glucose [Mass/Vol] 105 mg/dL 74-106 [facility] Comment on above: Fasting Glucose resu lt from 100 to 125 mg/dL suggests IMPAIRED HOMEOSTASIS per A.D.A. criteria. Potassium [Moles/Vol] 3.4 mmol/L 3.5-5.1 [facility] Sodium [Moles/Vol] 145 mmol/L 136-145 [facility] Laboratory - Chemistry and C hemistry - challengeOrdered By: Jesse Camejo on 11-04-2022 CO2 [Moles/Vol] 24.0 mmol/L 21.0-32.0 [facility] Urea nitrogen/Creatinine [Mass ratio] 6.3 mg/mg 10-20 [facility] No Panel InformationOrdered By: Jesse Camejo on 11-04-2022 Estimated Creatinine Clearance Calc 39.02 ml/min [facility] Estimated GFR (MDRD) Amer 119 mL/min >60 [facility] Comment on above: GFR Calc Estimated GFR (MDRD) Non-Af Amer 98 mL/min >60 [facility] Comment on above: Non- GFR Calc Serum or plasma calcium rosangela urement (mass/volume)Ordered By: Jesse Camejo on 11-04-2022 Calcium [Mass/Vol] 8.3 mg/dL 8.5-10.1 [facility] Serum or plasma creatinine m easurement (mass/volume)Ordered By: Jesse Camejo on 11-04-2022 Creatinine [Mass/Vol] 0.63 mg/dL 0.55-1.02 [facility] Comment on above: The validity of the calculated GFR & GFRAA in patients over 70 years has not been determined. Clinical correlation is essential. Serum or plasma urea nitroge n measurement (mass/volume)Ordered By: Jesse Camejo on 11-04-2022 Urea nitrogen [Mass/Vol] 4 mg/dL 10-03 [facility] Thin prep Papanicolaou smear with manual screeningOrdered By: Jesse Camejo on 11-04-2022 Thin prep Papanicolaou smear with manual screening 4 - [facility] Absolute lymphocyte countOrd ered By: Jesse Camejo on 11-03-2022 Lymphocytes Auto (Unsp spec) [#/Vol] 1.21 10*3/uL 0.83-4.51 [facility] Basophil percentageOrdered B y: Jesse Camejo on 11-03-2022 Basophils/100 WBC (Bld) 1.3 % 0-1 [facility] Eosinophils/100 WBC (Bld) 4.8 % 0-5 [facility] Neutrophils (Bld) [#/Vol] 1.9 10*3/uL 2.0-7.7 [facility] Neutrophils/100 WBC (Bld) 50.2 % 47-70 [facility] WBC (Bld) [#/Vol] 3.8 10*3/uL 4.4-11.0 [facility] Blood erythrocytes count (nu mber/volume)Ordered By: Jesse Camejo on 11-03-2022 RBC (Bld) [#/Vol] 3.66 10*6/uL 4.2-5.4 [facility] Blood hemoglobin measurement (mass/volume)Ordered By: Jesse Camejo on 11-03-2022 Hemoglobin (Bld) [Mass/Vol] 11.5 g/dL 12.0-15.0 [facility] Blood lymphocytes/100 leukoc ytesOrdered By: Jesse Camejo on 11-03-2022 Lymphocytes/100 WBC (Bld) 32.0 % 19-41 [facility] Blood monocytes/100 leukocyt esOrdered By: Jesse Camejo on 11-03-2022 Monocytes/100 WBC (Bld) 11.4 % 0-10 [facility] Blood platelet mean volumeOr dered By: Jesse Camejo on 11-03-2022 Platelet mean volume (Bld) [Entitic vol] 9.4 fL 6.2-12.0 [facility] Determination of erythrocyte mean corpuscular volume (MCV)Ordered By: Jesse Camejo on 11-03-2022 MCV (RBC) [Entitic vol] 98.6 fL 81-99 [facility] Hematocrit Auto (Bld) [Volum e fraction]Ordered By: Jesse Camejo on 11-03-2022 Hematocrit (Bld) [Volume fraction] 36.1 % 37-47 [facility] INR in Blood by Coagulation assayOrdered By: Ken Johnston on 11-03-2022 INR Coag (Bld) [Relative time] 1.1 {INR} [facility] Laboratory - CoagulationOrde red By: Ken Johnston on 11-03-2022 aPTT Coag (Bld) [Time] 41.4 s 24.1-36.2 [facility] PT Coag (PPP) [Time] 14.7 s 11.7-14.9 [facility] Laboratory - Hematology and Cell countsOrdered By: Jesse Camejo on 11-03-2022 Erythrocyte distribution width (RBC) [Entitic vol] 50.4 fL 35.1-43.9 [facility] Erythrocyte distribution width (RBC) [Ratio] 13.9 % 11.6-14.6 [facility] Immature granulocytes/100 WBC (Bld) 0.300 % 0.0-0.9 [facility] Comment on above: IG% - Immature Granu locytes (promyelocytes, myelocytes and metamyelocytes) > 1% indicates that a LEFT SHIFT is Present. MCH (RBC) [Entitic mass] 31.4 pg 27.0-32.0 [facility] Nucleated RBC/100 WBC (Bld) [Ratio] 0 % 0-5 [facility] MCHC Auto (RBC) [Mass/Vol]Or dered By: Jesse Camejo on 11-03-2022 MCHC (RBC) [Mass/Vol] 31.9 g/dL 32-36 [facility] Platelets bldOrdered By: Eagle Camejo on 11-03-2022 Platelets (Bld) [#/Vol] 368 10*3/uL 150-450 [facility] Basophil percentageOrdered B y: Helena Ann on 11-02-2022 Basophil percentage 2.7 mg/dL 2.5-4.9 [facility] Laboratory - Chemistry and C hemistry - challengeOrdered By: Helena Ann on 11-02-2022 Magnesium [Mass/Vol] 2.2 mg/dL 1.6-2.6 [facility] Absolute lymphocyte countOrd ered By: Armando Miranda on 11-01-2022 Lymphocytes Auto (Unsp spec) [#/Vol] 1.37 10*3/uL 0.83-4.51 [facility] Assessment of wrist artery p atency prior to arterial punctureOrdered By: Armando Miranda on 11-01-2022 Arterial patency Wrist artery --pre arterial puncture Positive [facility] Bacterial cerebrospinal flui d cultureOrdered By: Helena Ann on 11-01-2022 Bacteria identified Cx Nom (CSF) No growth in 72 hours. [facility] Base excessOrdered By: Garrett Miranda on 11-01-2022 Base excess Calc (BldV) [Moles/Vol] -3 mmol/L -2-2 [facility] Basophil percentageOrdered B y: Armando Miranda on 11-01-2022 Basophil percentage 23.0 mmol/L 22-26 [facility] Basophils/100 WBC (Bld) 96 % 95-99 [facility] Basophil percentage 0 SEEN /hpf 0-5 [facility] Lactate [Moles/Vol] 0.9 mmol/L 0.4-2.0 [facility] Basophils/100 WBC (Bld) 1.9 % 0-1 [facility] Bilirubin [Mass/Vol] 0.40 mg/dL 0.20-1.00 [facility] Comment on above: For patients on eltr ombopag therapy, use of Dimension [place] TBIL is not recommended. Chloride [Moles/Vol] 114 mmol/L 98-107 [facility] Eosinophils/100 WBC (Bld) 5.0 % 0-5 [facility] Glucose [Mass/Vol] 100 mg/dL 74-106 [facility] Comment on above: Fasting Glucose resu lt from 100 to 125 mg/dL suggests IMPAIRED HOMEOSTASIS per A.D.A. criteria. Neutrophils (Bld) [#/Vol] 1.6 10*3/uL 2.0-7.7 [facility] Neutrophils/100 WBC (Bld) 44.7 % 47-70 [facility] Potassium [Moles/Vol] 3.7 mmol/L 3.5-5.1 [facility] Protein [Mass/Vol] 6.9 g/dL 6.4-8.2 [facility] Sodium [Moles/Vol] 144 mmol/L 136-145 [facility] WBC (Bld) [#/Vol] 3.6 10*3/uL 4.4-11.0 [facility] Basophil percentageOrdered B y: Helenaradha Ann on 11-01-2022 Ammonia (P) [Moles/Vol] 11.0 umol/L 11-32 [facility] Bilirubin Test strip Ql (U)O rdered By: Armando Miranda on 11-01-2022 Bilirubin Ql (U) Negative Negative [facility] Blood erythrocytes count (nu mber/volume)Ordered By: Armando Miranda on 11-01-2022 RBC (Bld) [#/Vol] 3.87 10*6/uL 4.2-5.4 [facility] Blood hemoglobin measurement (mass/volume)Ordered By: Armando Miranda on 11-01-2022 Hemoglobin (Bld) [Mass/Vol] 12.2 g/dL 12.0-15.0 [facility] Blood lymphocytes/100 leukoc ytesOrdered By: Armando Miranda on 11-01-2022 Lymphocytes/100 WBC (Bld) 38.1 % 19-41 [facility] Blood monocytes/100 leukocyt esOrdered By: Armando Miranda on 11-01-2022 Monocytes/100 WBC (Bld) 10.0 % 0-10 [facility] Blood platelet mean volumeOr dered By: Armando Miranda on 11-01-2022 Platelet mean volume (Bld) [Entitic vol] 9.9 fL 6.2-12.0 [facility] CO2 (BldA) [Partial pressure ]Ordered By: Armando Miranda on 11-01-2022 CO2 (Bld) [Partial pressure] 41.6 mm[Hg] 35-45 [facility] Cerebrospinal fluid SARAH virus DNA detection by probe and target amplification methodOrdered By: Helena Ann on 11-01-2022 SARAH virus DNA ANTIONE+probe Ql (CSF) See comment [facility] Comment on above: Result: NegativeNo J CV DNA detectedThis test was developed and its performance characteristicsdetermined by [employer]. It has not been cleared or approvedby the Food and Drug Administration. The FDA hasdetermined that such clearance or approval is notnecessary.Performed at: [address] [id number] Director: Kody Garcia MD, Phone: [phone] Cerebrospinal fluid appearan ce descriptionOrdered By: Helena Ann on 11-01-2022 Appearance (CSF) CLEAR Clear [facility] Cerebrospinal fluid cell cou ntOrdered By: Helena Ann on 11-01-2022 Cell count panel (CSF) TNP [facility] Comment on above: Test not performed Cerebrospinal fluid color id entificationOrdered By: Helena Ann on 11-01-2022 Color (CSF) COLORLESS Colorless [facility] Cerebrospinal fluid glucose measurement (mass/volume)Ordered By: Helena Ann on 11-01-2022 Glucose (CSF) [Mass/Vol] 62 mg/dL 40-75 [facility] Cerebrospinal fluid white bl ood cell countOrdered By: Helena Ann on 11-01-2022 WBC (CSF) [#/Vol] 0 /mm-3 0-5 [facility] Cytology report of Body flui d Cyto stainOrdered By: Helena Ann on 11-01-2022 Cytology report Cyto stain Doc (Body fld) SEE PATHOLOGY REPORT [facility] Comment on above: Specimen submitted t o Anatomical Pathology Department for testing. Determination of erythrocyte mean corpuscular volume (MCV)Ordered By: Armando Miranda on 11-01-2022 MCV (RBC) [Entitic vol] 99.5 fL 81-99 [facility] Gram stain for investigation of transfusion reactionOrdered By: Helena Ann on 11-01-2022 Microscopic observation Gram stain Nom (Unsp spec) [facility] Hematocrit Auto (Bld) [Volum e fraction]Ordered By: Armando Miranda on 11-01-2022 Hematocrit (Bld) [Volume fraction] 38.5 % 37-47 [facility] Herpes simplex virus 1+2 DNA detection by probe and target amplification methodOrdered By: Helena Ann on 11-01-2022 HSV 1+2 DNA ANTIONE+probe Ql (Unsp spec) Negative Negative [facility] Influenza virus A and B and SARS-CoV-2 (COVID-19) Ag panel - Upper respiratory specimOrdered By: Armando Miranda on 11-01-2022 SARS-CoV-2 & FLU Antigen (Rapid) Influenzae B [facility] SARS-CoV-2 (COVID-19) RNA ANTIONE+probe Ql (Resp) [facility] Ketones Test strip Ql (U)Ord ered By: Armando Miranda on 11-01-2022 Ketones Ql (U) Negative Negative [facility] Laboratory - Chemistry and C hemistry - challengeOrdered By: Armando Miranda on 11-01-2022 ALP [Catalytic activity/Vol] 97 U/L 45-117 [facility] ALT [Catalytic activity/Vol] 30 U/L 13-56 [facility] CK [Catalytic activity/Vol] 211 U/L 26-192 [facility] CO2 [Moles/Vol] 25.0 mmol/L 21.0-32.0 [facility] Globulin (S) [Mass/Vol] 4.3 g/dL 2.2-4.2 [facility] Lipase [Catalytic activity/Vol] 21 U/L 13-75 [facility] Comment on above: Please note:LIPASE r evised reference range effective 22. New Lipase methodology. Expected to produce lower values than the previous assay method. NEW Reference Range: 13 - 75 U/L Urea nitrogen/Creatinine [Mass ratio] 11.4 mg/mg 10-20 [facility] Laboratory - Chemistry and C hemistry - challengeOrdered By: Helena Ann on 11-01-2022 Free T4 [Mass/Vol] 1.18 ng/dL 0.76-1.46 [facility] Laboratory - Drug toxicology Ordered By: Armando Miranda on 11-01-2022 Amphetamines Ql (U) Negative <1000 ng/mL [facility] Benzodiazepines Ql (U) Negative < 200 ng/mL [facility] Cannabinoids Screen Ql (U) Negative < 50 ng/mL [facility] Cocaine Ql (U) Negative < 300 ng/mL [facility] Opiates Ql (U) Negative < 300 ng/mL [facility] Laboratory - Hematology and Cell countsOrdered By: Armando Miranda on 11-01-2022 Erythrocyte distribution width (RBC) [Entitic vol] 52.0 fL 35.1-43.9 [facility] Erythrocyte distribution width (RBC) [Ratio] 14.3 % 11.6-14.6 [facility] Immature granulocytes/100 WBC (Bld) 0.300 % 0.0-0.9 [facility] Comment on above: IG% - Immature Granu locytes (promyelocytes, myelocytes and metamyelocytes) > 1% indicates that a LEFT SHIFT is Present. MCH (RBC) [Entitic mass] 31.5 pg 27.0-32.0 [facility] Nucleated RBC/100 WBC (Bld) [Ratio] 0 % 0-5 [facility] Laboratory - Specimen inform ationOrdered By: Helena Ann on 11-01-2022 Tube number Nom (CSF) [ID] 3 [facility] MCHC Auto (RBC) [Mass/Vol]Or dered By: Armando Miranda on 11-01-2022 MCHC (RBC) [Mass/Vol] 31.7 g/dL 32-36 [facility] Mononuclear cells Auto (Body fld) [#/Vol]Ordered By: Helena Ann on 11-01-2022 Mononuclear cells (Body fld) [#/Vol] 0.000 10*3/uL [facility] Mucus LM Ql (Urine sed)Order ed By: Armando Miranda on 11-01-2022 Mucus Ql (Urine sed) 0 SEEN /hpf [facility] Nitrite Test strip Ql (U)Ord ered By: Armando Miranda on 11-01-2022 Nitrite Ql (U) Negative Negative [facility] No Panel InformationOrdered By: Helena Ann on 11-01-2022 Body Fluid Mononuclear WBCs (%) 0.0 % [facility] Body Fluid Polynuclear WBCs (#) 0.001 10^3/uL [facility] Body Fluid Polynuclear WBCs (%) 100.0 % [facility] CSF RBC 49 /mm-3 None seen [facility] CSF Total Protein 43.0 mg/dL 15.0-45.0 [facility] Herpes Simplex Virus II DNA (PCR) Negative Negative [facility] No Panel InformationOrdered By: Armando Miranda on 11-01-2022 Blood Gas Sample Site L Radial [facility] Blood Gas Specimen Type ART [facility] Blood Gas Total [facility] Oxygen Delivery Device Room Air [facility] MDMA (Ecstasy) Screen Positive < 500 ng/mL [facility] Urine Barbiturates Screen Negative < 200 ng/mL [facility] Urine Drug Screen Comment [facility] Comment on above: CONFIRMATORY TESTING [...] Urine Methadone Screen Negative < 300 ng/mL [facility] Estimated Creatinine Clearance Calc 45.70 ml/min [facility] Estimated GFR (MDRD) Amer 81 mL/min >60 [facility] Comment on above: GFR Calc Estimated GFR (MDRD) Non-Af Amer 67 mL/min >60 [facility] Comment on above: Non- GFR Calc Ethyl Alcohol Level < 3.0 mg/dL [facility] Comment on above: The serum:whole bloo d ethanol ratio is approximately 1.14and varies slightly with hematocrit. Medical Alcohol reference interval and critical value innon-tolerant individuals; 50 - 100 Impairment 100 Intoxication 100 - 250 Severe Poisoning 250 - 400 Deep/possible fatal coma Thyroid Stimulating Hormone (TSH) 0.09 uIU/mL 0.358-3.74 [facility] Troponin I High Sensitivity 4 pg/mL 3.0-54.0 [facility] Comment on above: Please Note: New Nu t Units and Gender Specific Reference Ranges. For more information see Policy Stat Procedure [place] High Sensitivity Troponin (TNIH) and attachments. Oxygen (BldA) [Partial press ure]Ordered By: Armando Miranda on 11-01-2022 Oxygen (Bld) [Partial pressure] 86 mmHG 75-100 [facility] Platelets bldOrdered By: Yudith Miranda on 11-01-2022 Platelets (Bld) [#/Vol] 399 10*3/uL 150-450 [facility] Protein Test strip Ql (U)Ord ered By: Armando Miranda on 11-01-2022 Protein Ql (U) Negative Negative [facility] Review by pathologistOrdered By: Helena Ann on 11-01-2022 Pathologist review [place] (Unsp spec) [Interp] Reviewed [facility] Comment on above: Previous reported re sult: May follow Edited by: [email or web address] on 11/02/22:1301Negative for malignant cells.Erik Manjarrez D.O. 11/02/22 AMENDED REPORT 11/02/22 1301 PATH REV previously reported as: May follow Serum or plasma albumin rosangela urement (mass/volume)Ordered By: Armando Miranda on 11-01-2022 Albumin [Mass/Vol] 2.6 g/dL 3.2-5.0 [facility] Serum or plasma albumin/glob ulin mass ratioOrdered By: Armando Miranda on 11-01-2022 Albumin/Globulin [Mass ratio] 0.6 {ratio} 0.9-2.4 [facility] Serum or plasma calcium rosangela urement (mass/volume)Ordered By: Armando Miranda on 11-01-2022 Calcium [Mass/Vol] 9.0 mg/dL 8.5-10.1 [facility] Serum or plasma creatinine m easurement (mass/volume)Ordered By: Armando Miranda on 11-01-2022 Creatinine [Mass/Vol] 0.88 mg/dL 0.55-1.02 [facility] Comment on above: The validity of the calculated GFR & GFRAA in patients over 70 years has not been determined. Clinical correlation is essential. Serum or plasma urea nitroge n measurement (mass/volume)Ordered By: Armando Miranda on 11-01-2022 Urea nitrogen [Mass/Vol] 10 mg/dL 7-18 [facility] Squamous epithelial cells de tection in urine sediment by light microscopyOrdered By: Armando Miranda on 11-01-2022 Epithelial cells.squamous LM Ql (Urine sed) 0 SEEN /hpf 5-10 [facility] Thin prep Papanicolaou smear with manual screeningOrdered By: Armando Miranda on 11-01-2022 Thin prep Papanicolaou smear with manual screening 19 U/L 15-37 [facility] Thin prep Papanicolaou smear with manual screening 5 5-15 [facility] Urine blood detectionOrdered By: Armando Miranda on 11-01-2022 RBC Ql (U) Negative Negative [facility] RBC Ql (U) 0 SEEN /hpf 0-5 [facility] Urine clarityOrdered By: Yudith Miranda on 11-01-2022 Clarity (U) Sl. Cloudy [facility] Urine color determinationOrd ered By: Armando Miranda on 11-01-2022 Color (U) Yellow Yellow [facility] Urine glucose detectionOrder ed By: Armando Miranda on 11-01-2022 Glucose Ql (U) Normal mg/dl Normal [facility] Urine leukocyte esterase det ection by dipstickOrdered By: Armando Miranda on 11-01-2022 Leukocyte esterase Test strip Ql (U) Negative Negative [facility] Urine pHOrdered By: Armando ghotra on 11-01-2022 pH (U) 7.0 [pH] 5.0 - 8.0 [facility] Urine phencyclidine (PCP) de tectionOrdered By: Armando Miranda on 11-01-2022 Phencyclidine Ql (U) Negative < 25 ng/mL [facility] Urine sediment bacteria coun t by microscopy (number/high power field)Ordered By: Armando Miranda on 11-01-2022 Bacteria LM.HPF (Urine sed) [#/Area] 0 /[HPF] None Seen [facility] Urine specific gravity measu rementOrdered By: Armando Miranda on 11-01-2022 Specific gravity (U) [Rel density] 1.010 1.002-1.03 0 [facility] Urobilinogen Auto test strip Ql (U)Ordered By: Armando Miranda on 11-01-2022 Urobilinogen Ql (U) Normal mg/dl Normal [facility] [place] pH measurementOrdered By: Patricia Miranda on 11-01-2022 pH (Unsp spec) 7.35 [pH] 7.35-7.45 [facility] Absolute lymphocyte countOrd ered By: Zia Posey on 10-14-2022 Lymphocytes Auto (Unsp spec) [#/Vol] 1.59 10*3/uL 0.83-4.51 [facility] Basophil percentageOrdered B y: Zia Posey on 10-14-2022 Basophils/100 WBC (Bld) 0.5 % 0-1 [facility] Chloride [Moles/Vol] 114 mmol/L 98-107 [facility] Eosinophils/100 WBC (Bld) 0.9 % 0-5 [facility] Glucose [Mass/Vol] 100 mg/dL 74-106 [facility] Comment on above: Fasting Glucose resu lt from 100 to 125 mg/dL suggests IMPAIRED HOMEOSTASIS per A.D.A. criteria. Neutrophils (Bld) [#/Vol] 3.6 10*3/uL 2.0-7.7 [facility] Neutrophils/100 WBC (Bld) 62.2 % 47-70 [facility] Potassium [Moles/Vol] 3.6 mmol/L 3.5-5.1 [facility] [place] Sodium [Moles/Vol] 143 mmol/L 136-145 [facility] WBC (Bld) [#/Vol] 5.7 10*3/uL 4.4-11.0 [facility] Blood erythrocytes count (nu mber/volume)Ordered By: Zia Posey on 10-14-2022 RBC (Bld) [#/Vol] 3.15 10*6/uL 4.2-5.4 [facility] Blood hemoglobin measurement (mass/volume)Ordered By: Zia Posey on 10-14-2022 Hemoglobin (Bld) [Mass/Vol] 10.1 g/dL 12.0-15.0 [facility] Blood lymphocytes/100 leukoc ytesOrdered By: Zia Posey on 10-14-2022 Lymphocytes/100 WBC (Bld) 27.8 % 19-41 [facility] Blood monocytes/100 leukocyt esOrdered By: Zia Posey on 10-14-2022 Monocytes/100 WBC (Bld) 8.4 % 0-10 [facility] Blood platelet mean volumeOr dered By: Zia Posey on 10-14-2022 Platelet mean volume (Bld) [Entitic vol] 10.0 fL 6.2-12.0 [facility] Determination of erythrocyte mean corpuscular volume (MCV)Ordered By: Zia Posey on 10-14-2022 MCV (RBC) [Entitic vol] 97.1 fL 81-99 [facility] Hematocrit Auto (Bld) [Volum e fraction]Ordered By: Zia Posey on 10-14-2022 Hematocrit (Bld) [Volume fraction] 30.6 % 37-47 [facility] - Chemistry and C hemistry - challengeOrdered By: Zia Posey on 10-14-2022 Cobalamin (Vitamin B12) [Mass/Vol] 312 pg/mL 211-911 [facility] Free T4 [Mass/Vol] 1.27 ng/dL 0.76-1.46 [facility] CO2 [Moles/Vol] 26.0 mmol/L 21.0-32.0 [facility] Urea nitrogen/Creatinine [Mass ratio] 8.1 mg/mg 10-20 [facility] - Hematology and Cell countsOrdered By: Zia Posey on 10-14-2022 Erythrocyte distribution width (RBC) [Entitic vol] 49.1 fL 35.1-43.9 [facility] Erythrocyte distribution width (RBC) [Ratio] 13.7 % 11.6-14.6 [facility] Immature granulocytes/100 WBC (Bld) 0.200 % 0.0-0.9 [facility] Comment on above: IG% - Immature Granu locytes (promyelocytes, myelocytes and metamyelocytes) > 1% indicates that a LEFT SHIFT is Present. MCH (RBC) [Entitic mass] 32.1 pg 27.0-32.0 [facility] Nucleated RBC/100 WBC (Bld) [Ratio] 0 % 0-5 [facility] MCHC Auto (RBC) [Mass/Vol]Or dered By: Zia Posey on 10-14-2022 MCHC (RBC) [Mass/Vol] 33.0 g/dL 32-36 [facility] [place] No Panel InformationOrdered By: Zia Posey on 10-14-2022 Vitamin D 25-Hydroxy 38.7 ng/mL [facility] Comment on above: Vitamin D 25(OH) Sta tus Range Deficiency <20 ng/mL (50nmol/L) Insufficiency 20 - 30 ng/mL (50 - 75 nmol/L) Sufficiency 30 - 100 ng/mL (75 - 250 nmol/L) Toxicity >100 ng/mL (>250 nmol/L) Estimated Creatinine Clearance Calc 39.90 ml/min [facility] Estimated GFR (MDRD) Amer 99 mL/min >60 [facility] Comment on above: GFR Calc Estimated GFR (MDRD) Non-Af Amer 82 mL/min >60 [facility] Comment on above: Non- GFR Calc Thyroid Stimulating Hormone (TSH) 0.04 uIU/mL 0.358-3.74 [facility] Platelets bldOrdered By: Elinor Posey on 10-14-2022 Platelets (Bld) [#/Vol] 247 10*3/uL 150-450 [facility] Serum or plasma calcium rosangela urement (mass/volume)Ordered By: Zia Posey on 10-14-2022 Calcium [Mass/Vol] 8.4 mg/dL 8.5-10.1 [facility] Serum or plasma creatinine m easurement (mass/volume)Ordered By: Zia Posey on 10-14-2022 Creatinine [Mass/Vol] 0.74 mg/dL 0.55-1.02 [facility] Comment on above: The validity of the calculated GFR & GFRAA in patients over 70 years has not been determined. Clinical correlation is essential. Serum or plasma folate measu rement (mass/volume)Ordered By: Zia Posey on 10-14-2022 Folate [Mass/Vol] 6.90 ng/mL 3.1-55.4 [facility] Serum or plasma urea nitroge n measurement (mass/volume)Ordered By: Zia Posey on 10-14-2022 Urea nitrogen [Mass/Vol] 6 mg/dL 7-18 [facility] Thin prep Papanicolaou smear with manual screeningOrdered By: Zia Posey on 10-14-2022 Thin prep Papanicolaou smear with manual screening 3 5-15 [facility] Absolute lymphocyte countOrd ered By: Sheyla Slade on 10-13-2022 Lymphocytes Auto (Unsp spec) [#/Vol] 1.13 10*3/uL 0.83-4.51 [facility] Basophil percentageOrdered B y: Sheyla Slade on 10-13-2022 Lactate [Moles/Vol] 0.8 mmol/L 0.4-2.0 [facility] Basophils/100 WBC (Bld) 0.2 % 0-1 [facility] Bilirubin [Mass/Vol] 0.30 mg/dL 0.20-1.00 [facility] Comment on above: For patients on eltr ombopag therapy, use of Dimension [place] TBIL is not recommended. Chloride [Moles/Vol] 112 mmol/L 98-107 [facility] Eosinophils/100 WBC (Bld) 0.0 % 0-5 [facility] Glucose [Mass/Vol] 91 mg/dL 74-106 [facility] Neutrophils (Bld) [#/Vol] 7.4 10*3/uL 2.0-7.7 [facility] Neutrophils/100 WBC (Bld) 78.3 % 47-70 [facility] Potassium [Moles/Vol] 3.5 mmol/L 3.5-5.1 [facility] Protein [Mass/Vol] 5.7 g/dL 6.4-8.2 [facility] Sodium [Moles/Vol] 143 mmol/L 136-145 [facility] WBC (Bld) [#/Vol] 9.4 10*3/uL 4.4-11.0 [facility] Basophil percentage 0 SEEN /hpf 0-5 [facility] Basophil percentage < 10.0 umol/L 11-32 [facility] Lactate [Moles/Vol] 2.5 mmol/L 0.4-2.0 [facility] Comment on above: Critical Result(s) C alled at: 14:29:10 10/13/2022 by: Stephanie Loera. Results read back by same. Basophil percentageOrdered B y: Zia Posey on 10-13-2022 Basophil percentage 3.1 mg/dL 2.5-4.9 [facility] Bilirubin Test strip Ql (U)O rdered By: Sheyla Slade on 10-13-2022 Bilirubin Ql (U) Negative Negative [facility] Blood erythrocytes count (nu mber/volume)Ordered By: Sheyla Slade on 10-13-2022 RBC (Bld) [#/Vol] 3.35 10*6/uL 4.2-5.4 [facility] Blood hemoglobin measurement (mass/volume)Ordered By: Sheyla Slade on 10-13-2022 Hemoglobin (Bld) [Mass/Vol] 10.3 g/dL 12.0-15.0 [facility] Blood lymphocytes/100 leukoc ytesOrdered By: Sheyla Slade on 10-13-2022 Lymphocytes/100 WBC (Bld) 12.0 % 19-41 [facility] Blood monocytes/100 leukocyt esOrdered By: Sheyla Slade on 10-13-2022 Monocytes/100 WBC (Bld) 9.2 % 0-10 [facility] Blood platelet mean volumeOr dered By: Sheyla Slade on 10-13-2022 Platelet mean volume (Bld) [Entitic vol] 9.8 fL 6.2-12.0 [facility] Determination of erythrocyte mean corpuscular volume (MCV)Ordered By: Sheyla Slade on 10-13-2022 MCV (RBC) [Entitic vol] 97.0 fL 81-99 [facility] Hematocrit Auto (Bld) [Volum e fraction]Ordered By: Sheyla Slade on 10-13-2022 Hematocrit (Bld) [Volume fraction] 32.5 % 37-47 [facility] Ketones Test strip Ql (U)Ord ered By: Sheyla Slade on 10-13-2022 Ketones Ql (U) Negative Negative [facility] Laboratory - Chemistry and C hemistry - challengeOrdered By: Zia Posey on 10-13-2022 Magnesium [Mass/Vol] 2.2 mg/dL 1.6-2.6 [facility] Laboratory - Chemistry and C hemistry - challengeOrdered By: Sheyla Slade on 10-13-2022 ALP [Catalytic activity/Vol] 86 U/L 45-117 [facility] ALT [Catalytic activity/Vol] 14 U/L 13-56 [facility] CO2 [Moles/Vol] 25.0 mmol/L 21.0-32.0 [facility] Globulin (S) [Mass/Vol] 3.3 g/dL 2.2-4.2 [facility] Urea nitrogen/Creatinine [Mass ratio] 10.3 mg/mg 10-20 [facility] Free T4 [Mass/Vol] 1.26 ng/dL 0.76-1.46 [facility] Laboratory - Hematology and Cell countsOrdered By: Sheyla Slade on 10-13-2022 Erythrocyte distribution width (RBC) [Entitic vol] 48.4 fL 35.1-43.9 [facility] Erythrocyte distribution width (RBC) [Ratio] 13.5 % 11.6-14.6 [facility] Immature granulocytes/100 WBC (Bld) 0.300 % 0.0-0.9 [facility] Comment on above: IG% - Immature Granu locytes (promyelocytes, myelocytes and metamyelocytes) > 1% indicates that a LEFT SHIFT is Present. MCH (RBC) [Entitic mass] 30.7 pg 27.0-32.0 [facility] Nucleated RBC/100 WBC (Bld) [Ratio] 0 % 0-5 [facility] MCHC Auto (RBC) [Mass/Vol]Or dered By: Sheyla Slade on 10-13-2022 MCHC (RBC) [Mass/Vol] 31.7 g/dL 32-36 [facility] Mucus LM Ql (Urine sed)Order ed By: Sheyla Slade on 10-13-2022 Mucus Ql (Urine sed) 0 SEEN /hpf [facility] Nitrite Test strip Ql (U)Ord ered By: Sheyla Slade on 10-13-2022 Nitrite Ql (U) Negative Negative [facility] No Panel InformationOrdered By: Sheyla Slade on 10-13-2022 Estimated Creatinine Clearance Calc 43.95 ml/min [facility] Estimated GFR (MDRD) Amer 82 mL/min >60 [facility] Comment on above: GFR Calc Estimated GFR (MDRD) Non-Af Amer 68 mL/min >60 [facility] Comment on above: Non- GFR Calc Free Triiodothyronine (T3) pg/dL 2.2 pg/mL 2.18-3.98 [facility] Platelets bldOrdered By: Elodia Slade on 10-13-2022 Platelets (Bld) [#/Vol] 288 10*3/uL 150-450 [facility] Protein Test strip Ql (U)Ord ered By: Shyela Slade on 10-13-2022 Protein Ql (U) Negative Negative [facility] Serum or plasma albumin rosangela urement (mass/volume)Ordered By: Sheyla Slade on 10-13-2022 Albumin [Mass/Vol] 2.4 g/dL 3.2-5.0 [facility] Serum or plasma albumin/glob ulin mass ratioOrdered By: Sheyla Slade on 10-13-2022 Albumin/Globulin [Mass ratio] 0.7 {ratio} 0.9-2.4 [facility] Serum or plasma calcium rosangela urement (mass/volume)Ordered By: Sheyla Slade on 10-13-2022 Calcium [Mass/Vol] 8.4 mg/dL 8.5-10.1 [facility] Serum or plasma creatinine m easurement (mass/volume)Ordered By: Sheyla Slade on 10-13-2022 Creatinine [Mass/Vol] 0.87 mg/dL 0.55-1.02 [facility] Comment on above: The validity of the calculated GFR & GFRAA in patients over 70 years has not been determined. Clinical correlation is essential. Serum or plasma urea nitroge n measurement (mass/volume)Ordered By: Sheyla Slade on 10-13-2022 Urea nitrogen [Mass/Vol] 9 mg/dL 7-18 [facility] Squamous epithelial cells de tection in urine sediment by light microscopyOrdered By: Sheyla Slade on 10-13-2022 Epithelial cells.squamous LM Ql (Urine sed) 0-5 SEEN /hpf 5-10 [facility] Thin prep Papanicolaou smear with manual screeningOrdered By: Sheyla Slade on 10-13-2022 Thin prep Papanicolaou smear with manual screening 18 U/L 15-37 [facility] Thin prep Papanicolaou smear with manual screening 6 5-15 [facility] Urine blood detectionOrdered By: Sheyla Slade on 10-13-2022 RBC Ql (U) Negative Negative [facility] RBC Ql (U) 0 SEEN /hpf 0-5 [facility] Urine clarityOrdered By: Elodia Slade on 10-13-2022 Clarity (U) Sl. Cloudy Clear [facility] Urine color determinationOrd ered By: Sheyla Slade on 10-13-2022 Color (U) Yellow Yellow [facility] Urine glucose detectionOrder ed By: Sheyla Slade on 10-13-2022 Glucose Ql (U) 50 mg/dl Normal [facility] Urine leukocyte esterase det ection by dipstickOrdered By: Sheyla Slade on 10-13-2022 Leukocyte esterase Test strip Ql (U) Negative Negative [facility] Urine pHOrdered By: Sheyla fink on 10-13-2022 pH (U) 6.0 [pH] 5.0 - 8.0 [facility] Urine sediment bacteria coun t by microscopy (number/high power field)Ordered By: Sheyla Slade on 10-13-2022 Bacteria LM.HPF (Urine sed) [#/Area] 0 /[HPF] None Seen [facility] Urine specific gravity measu rementOrdered By: Sheyla Slade on 10-13-2022 Specific gravity (U) [Rel density] 1.015 1.002-1.03 0 [facility] Urobilinogen Auto test strip Ql (U)Ordered By: Sheyla Slade on 10-13-2022 Urobilinogen Ql (U) Normal mg/dl Normal [facility] Absolute lymphocyte countOrd ered By: Harish Luis on 10-12-2022 Lymphocytes Auto (Unsp spec) [#/Vol] 1.77 10*3/uL 0.83-4.51 [facility] Basophil percentageOrdered B y: Harish Luis on 10-12-2022 Basophils/100 WBC (Bld) 0.8 % 0-1 [facility] Bilirubin [Mass/Vol] 0.50 mg/dL 0.20-1.00 [facility] Comment on above: For patients on eltr ombopag therapy, use of Dimension [place] TBIL is not recommended. Chloride [Moles/Vol] 108 mmol/L 98-107 [facility] Eosinophils/100 WBC (Bld) 1.5 % 0-5 [facility] Glucose [Mass/Vol] 116 mg/dL 74-106 [facility] Comment on above: Fasting Glucose resu lt from 100 to 125 mg/dL suggests IMPAIRED HOMEOSTASIS per A.D.A. criteria. Neutrophils (Bld) [#/Vol] 4.6 10*3/uL 2.0-7.7 [facility] Neutrophils/100 WBC (Bld) 63.9 % 47-70 [facility] Potassium [Moles/Vol] 3.6 mmol/L 3.5-5.1 [facility] Protein [Mass/Vol] 6.9 g/dL 6.4-8.2 [facility] Sodium [Moles/Vol] 142 mmol/L 136-145 [facility] WBC (Bld) [#/Vol] 7.2 10*3/uL 4.4-11.0 [facility] Blood erythrocytes count (nu mber/volume)Ordered By: Harish Luis on 10-12-2022 RBC (Bld) [#/Vol] 4.18 10*6/uL 4.2-5.4 [facility] Blood hemoglobin measurement (mass/volume)Ordered By: Harish Luis on 10-12-2022 Hemoglobin (Bld) [Mass/Vol] 13.2 g/dL 12.0-15.0 [facility] Blood lymphocytes/100 leukoc ytesOrdered By: Harish Luis on 10-12-2022 Lymphocytes/100 WBC (Bld) 24.4 % 19-41 [facility] Blood monocytes/100 leukocyt esOrdered By: Harish Luis on 10-12-2022 Monocytes/100 WBC (Bld) 9.0 % 0-10 [facility] Blood platelet mean volumeOr dered By: Harish Luis on 10-12-2022 Platelet mean volume (Bld) [Entitic vol] 10.2 fL 6.2-12.0 [facility] Determination of erythrocyte mean corpuscular volume (MCV)Ordered By: Harish Luis on 10-12-2022 MCV (RBC) [Entitic vol] 95.9 fL 81-99 [facility] Hematocrit Auto (Bld) [Volum e fraction]Ordered By: Harish Luis on 10-12-2022 Hematocrit (Bld) [Volume fraction] 40.1 % 37-47 [facility] - Chemistry and C hemistry - challengeOrdered By: Harish Luis on 10-12-2022 ALP [Catalytic activity/Vol] 115 U/L 45-117 [facility] ALT [Catalytic activity/Vol] 17 U/L 13-56 [facility] CO2 [Moles/Vol] 28.0 mmol/L 21.0-32.0 [facility] Globulin (S) [Mass/Vol] 3.9 g/dL 2.2-4.2 [facility] Urea nitrogen/Creatinine [Mass ratio] 6.7 mg/mg 10-20 [facility] - Hematology and Cell countsOrdered By: Harish Luis on 10-12-2022 Erythrocyte distribution width (RBC) [Entitic vol] 48.3 fL 35.1-43.9 [facility] Erythrocyte distribution width (RBC) [Ratio] 13.5 % 11.6-14.6 [facility] Immature granulocytes/100 WBC (Bld) 0.400 % 0.0-0.9 [facility] Comment on above: IG% - Immature Granu locytes (promyelocytes, myelocytes and metamyelocytes) > 1% indicates that a LEFT SHIFT is Present. MCH (RBC) [Entitic mass] 31.6 pg 27.0-32.0 [facility] Nucleated RBC/100 WBC (Bld) [Ratio] 0 % 0-5 [facility] MCHC Auto (RBC) [Mass/Vol]Or dered By: Harish Luis on 10-12-2022 MCHC (RBC) [Mass/Vol] 32.9 g/dL 32-36 [facility] No Panel InformationOrdered By: Harish Luis on 10-12-2022 Estimated GFR (MDRD) Amer 66 mL/min >60 [facility] Comment on above: GFR Calc Estimated GFR (MDRD) Non-Af Amer 55 mL/min >60 [facility] Comment on above: Non- GFR Calc Thyroid Stimulating Hormone (TSH) 0.05 uIU/mL 0.358-3.74 [facility] Platelets bldOrdered By: Harish Luis on 10-12-2022 Platelets (Bld) [#/Vol] 341 10*3/uL 150-450 [facility] Serum or plasma albumin rosangela urement (mass/volume)Ordered By: Harish Luis on 10-12-2022 Albumin [Mass/Vol] 3.0 g/dL 3.2-5.0 [facility] Serum or plasma albumin/glob ulin mass ratioOrdered By: Harish Toby on 10-12-2022 Albumin/Globulin [Mass ratio] 0.8 {ratio} 0.9-2.4 [facility] Serum or plasma calcium rosangela urement (mass/volume)Ordered By: Harish Luis on 10-12-2022 Calcium [Mass/Vol] 9.1 mg/dL 8.5-10.1 [facility] Serum or plasma creatinine m easurement (mass/volume)Ordered By: Harish Luis on 10-12-2022 Creatinine [Mass/Vol] 1.05 mg/dL 0.55-1.02 [facility] Comment on above: The validity of the calculated GFR & GFRAA in patients over 70 years has not been determined. Clinical correlation is essential. Serum or plasma urea nitroge n measurement (mass/volume)Ordered By: Harish Luis on 10-12-2022 Urea nitrogen [Mass/Vol] 7 mg/dL 7-18 [facility] Thin prep Papanicolaou smear with manual screeningOrdered By: Harish Luis 10-12-2022 Thin prep Papanicolaou smear with manual screening 22 U/L 15-37 [facility] Thin prep Papanicolaou smear with manual screening 6 5-15 [facility] Basophil percentageOrdered B y: Sondra Rooney on 08-03-2022 Cholesterol [Mass/Vol] 176 mg/dL <200 [facility] Comment on above: <200 mg/dL Desirable 200-240 mg/dL Borderline >240 mg/dL High Risk Triglyceride [Mass/Vol] 79 mg/dL <199 [facility] Comment on above: The drugs N-Acetylcy steine and Metamizole may falsely depress this assay.Serum Triglycerides Reference Interval Normal <150 mg/dL Borderline high 150 - 199 mg/dL High 200 - 499 mg/dL Very High > or = 500 mg/dL Serum or plasma cholesterol in HDL measurement (mass/volume)Ordered By: Sondra Rooney on 08-03-2022 Cholesterol in HDL [Mass/Vol] 52 mg/dL >40 [facility] Comment on above: The drugs N-Acetylcy steine and Metamizole may falsely depress this assay. Reference Range HDL <40 mg/dL Low HDL Cholesterol HDL >or= 60 mg/dL High HDL Cholesterol Serum or plasma cholesterol in VLDL measurement (mass/volume)Ordered By: Sondra Rooney on 08-03-2022 Cholesterol in VLDL [Mass/Vol] 16 mg/dL 5-40 [facility] Serum or plasma low density lipoprotein (LDL) cholesterol measurement (mass/volume)Ordered By: Sondra Rooney on 08-03-2022 Cholesterol in LDL [Mass/Vol] 108 mg/dL 0-130 [facility] Glucose Glucometer (BldC) [M ass/Vol]Ordered By: Doni Hanson on 08-02-2022 Glucose [Mass/Vol] 109 mg/dL 74-106 [facility] Comment on above: MANAGEMENT OF PATIEN T CARE PER NURSING PROTOCOL Absolute lymphocyte countOrd ered By: Rafita Siddiqui on 07-30-2022 Lymphocytes Auto (Unsp spec) [#/Vol] 1.32 10*3/uL 0.83-4.51 [facility] Basophil percentageOrdered B y: Rafita Siddiqui on 07-30-2022 Basophils/100 WBC (Bld) 0.4 % 0-1 [facility] Chloride [Moles/Vol] 108 mmol/L 98-107 [facility] Eosinophils/100 WBC (Bld) 2.1 % 0-5 [facility] Glucose [Mass/Vol] 100 mg/dL 74-106 [facility] Comment on above: Fasting Glucose resu lt from 100 to 125 mg/dL suggests IMPAIRED HOMEOSTASIS per A.D.A. criteria. Neutrophils (Bld) [#/Vol] 5.0 10*3/uL 2.0-7.7 [facility] Neutrophils/100 WBC (Bld) 70.5 % 47-70 [facility] Potassium [Moles/Vol] 3.9 mmol/L 3.5-5.1 [facility] Sodium [Moles/Vol] 137 mmol/L 136-145 [facility] WBC (Bld) [#/Vol] 7.1 10*3/uL 4.4-11.0 [facility] Blood erythrocytes count (nu mber/volume)Ordered By: Rafita Siddiqui on 07-30-2022 RBC (Bld) [#/Vol] 3.34 10*6/uL 4.2-5.4 [facility] Blood hemoglobin measurement (mass/volume)Ordered By: Rafita Siddiqui on 07-30-2022 Hemoglobin (Bld) [Mass/Vol] 10.4 g/dL 12.0-15.0 [facility] Blood lymphocytes/100 leukoc ytesOrdered By: Rafita Siddiqui on 07-30-2022 Lymphocytes/100 WBC (Bld) 18.5 % 19-41 [facility] Blood monocytes/100 leukocyt esOrdered By: Rafita Siddiqui on 07-30-2022 Monocytes/100 WBC (Bld) 8.1 % 0-10 [facility] Blood platelet mean volumeOr dered By: Rafita Siddiqui on 07-30-2022 Platelet mean volume (Bld) [Entitic vol] 10.3 fL 6.2-12.0 [facility] Determination of erythrocyte mean corpuscular volume (MCV)Ordered By: Rafita Siddiqui on 07-30-2022 MCV (RBC) [Entitic vol] 97.9 fL 81-99 [facility] Hematocrit Auto (Bld) [Volum e fraction]Ordered By: Rafita Siddiqui on 07-30-2022 Hematocrit (Bld) [Volume fraction] 32.7 % 37-47 [facility] - Chemistry and C hemistry - challengeOrdered By: Rafita Siddiqui on 07-30-2022 CO2 [Moles/Vol] 23.0 mmol/L 21.0-32.0 [facility] Urea nitrogen/Creatinine [Mass ratio] 13.9 mg/mg 10-20 [facility] - Hematology and Cell countsOrdered By: Rafita Siddiqui on 07-30-2022 Erythrocyte distribution width (RBC) [Entitic vol] 52.1 fL 35.1-43.9 [facility] Erythrocyte distribution width (RBC) [Ratio] 14.5 % 11.6-14.6 [facility] Immature granulocytes/100 WBC (Bld) 0.400 % 0.0-0.9 [facility] Comment on above: IG% - Immature Granu locytes (promyelocytes, myelocytes and metamyelocytes) > 1% indicates that a LEFT SHIFT is Present. MCH (RBC) [Entitic mass] 31.1 pg 27.0-32.0 [facility] Nucleated RBC/100 WBC (Bld) [Ratio] 0 % 0-5 [facility] MCHC Auto (RBC) [Mass/Vol]Or dered By: Rafita Siddiqui on 07-30-2022 MCHC (RBC) [Mass/Vol] 31.8 g/dL 32-36 [facility] [place] No Panel InformationOrdered By: Rafita Siddiqui on 07-30-2022 Streptococcus pneumoniae Antigen (M [facility] Estimated Creatinine Clearance Calc 41.65 ml/min [facility] Estimated GFR (MDRD) Amer 69 mL/min >60 [facility] Comment on above: GFR Calc Estimated GFR (MDRD) Non-Af Amer 57 mL/min >60 [facility] Comment on above: Non- GFR Calc Platelets bldOrdered By: Pina Siddiqui on 07-30-2022 Platelets (Bld) [#/Vol] 286 10*3/uL 150-450 [facility] Serum or plasma calcium rosangela urement (mass/volume)Ordered By: Rafita Siddiqui on 07-30-2022 Calcium [Mass/Vol] 8.4 mg/dL 8.5-10.1 [facility] Serum or plasma creatinine m easurement (mass/volume)Ordered By: Rafita Siddiqui on 07-30-2022 Creatinine [Mass/Vol] 1.01 mg/dL 0.55-1.02 [facility] [place] Comment on above: The validity of the calculated GFR & GFRAA in patients over 70 years has not been determined. Clinical correlation is essential. Serum or plasma urea nitroge n measurement (mass/volume)Ordered By: Rafita Siddiqui on 07-30-2022 Urea nitrogen [Mass/Vol] 14 mg/dL 7-18 [facility] Thin prep Papanicolaou smear with manual screeningOrdered By: Rafita Siddiqui on 07-30-2022 Thin prep Papanicolaou smear with manual screening 6 5-15 [facility] Absolute lymphocyte countOrd ered By: Dr. Rosales on 07-29-2022 Lymphocytes Auto (Unsp spec) [#/Vol] 0.73 10*3/uL 0.83-4.51 [facility] Basophil percentageOrdered B y: Dr. Rosales on 07-29-2022 Lactate [Moles/Vol] 1.7 mmol/L 0.4-2.0 [facility] Basophils/100 WBC (Bld) 0.7 % 0-1 [facility] Chloride [Moles/Vol] 110 mmol/L 98-107 [facility] Eosinophils/100 WBC (Bld) 2.2 % 0-5 [facility] Glucose [Mass/Vol] 123 mg/dL 74-106 [facility] Comment on above: Fasting Glucose resu lt from 100 to 125 mg/dL suggests IMPAIRED HOMEOSTASIS per A.D.A. criteria. Neutrophils (Bld) [#/Vol] 6.7 10*3/uL 2.0-7.7 [facility] Neutrophils/100 WBC (Bld) 81.7 % 47-70 [facility] Potassium [Moles/Vol] 3.9 mmol/L 3.5-5.1 [facility] [place] Sodium [Moles/Vol] 142 mmol/L 136-145 [facility] WBC (Bld) [#/Vol] 8.2 10*3/uL 4.4-11.0 [facility] Blood erythrocytes count (nu mber/volume)Ordered By: Dr. Rosales on 07-29-2022 RBC (Bld) [#/Vol] 3.91 10*6/uL 4.2-5.4 [facility] Blood hemoglobin measurement (mass/volume)Ordered By: Dr. Rosales on 07-29-2022 Hemoglobin (Bld) [Mass/Vol] 12.0 g/dL 12.0-15.0 [facility] Blood lymphocytes/100 leukoc ytesOrdered By: Dr. Rosales on 07-29-2022 Lymphocytes/100 WBC (Bld) 8.9 % 19-41 [facility] Blood monocytes/100 leukocyt esOrdered By: Dr. Rosales on 07-29-2022 Monocytes/100 WBC (Bld) 6.3 % 0-10 [facility] Blood platelet mean volumeOr dered By: Dr. Rosales on 07-29-2022 Platelet mean volume (Bld) [Entitic vol] 10.5 fL 6.2-12.0 [facility] Determination of erythrocyte mean corpuscular volume (MCV)Ordered By: Dr. Rosales on 07-29-2022 MCV (RBC) [Entitic vol] 99.0 fL 81-99 [facility] Hematocrit Auto (Bld) [Volum e fraction]Ordered By: Dr. Rosales on 07-29-2022 Hematocrit (Bld) [Volume fraction] 38.7 % 37-47 [facility] Influenza virus A and B and SARS-CoV-2 (COVID-19) Ag panel - Upper respiratory specimOrdered By: Dimitry Rosales on 07-29-2022 SARS-CoV-2 & FLU Antigen (Rapid) Influenzae B [facility] Influenza virus A and B and SARS-CoV-2 (COVID-19) Ag panel - Upper respiratory specimOrdered By: Dr. Rosales on 07-29-2022 SARS-CoV-2 & FLU Antigen (Rapid) Influenzae B [facility] Laboratory - Chemistry and C hemistry - challengeOrdered By: Dr. Rosales on 07-29-2022 CO2 [Moles/Vol] 27.0 mmol/L 21.0-32.0 [facility] Natriuretic peptide B (Bld) [Mass/Vol] 36.5 pg/mL 0-100 [facility] Urea nitrogen/Creatinine [Mass ratio] 13.0 mg/mg 10-20 [facility] Laboratory - Hematology and Cell countsOrdered By: Dr. Rosales on 07-29-2022 Erythrocyte distribution width (RBC) [Entitic vol] 52.6 fL 35.1-43.9 [facility] Erythrocyte distribution width (RBC) [Ratio] 14.6 % 11.6-14.6 [facility] Immature granulocytes/100 WBC (Bld) 0.200 % 0.0-0.9 [facility] Comment on above: IG% - Immature Granu locytes (promyelocytes, myelocytes and metamyelocytes) > 1% indicates that a LEFT SHIFT is Present. MCH (RBC) [Entitic mass] 30.7 pg 27.0-32.0 [facility] Nucleated RBC/100 WBC (Bld) [Ratio] 0 % 0-5 [facility] Laboratory - Microbiology an d Antimicrobial susceptibilityOrdered By: Dimitry Rosales on 07-29-2022 Bacteria identified Cx Nom (Bld) [facility] ([facility] [Mass/Vol]Or dered By: Dr. Rosales on 07-29-2022 MCHC (RBC) [Mass/Vol] 31.0 g/dL 32-36 [facility] [place] No Panel InformationOrdered By: Dr. Rosales on 07-29-2022 D-Dimer Quantitative (PE/DVT) 0.62 FEU/ug/m 0.27-0.49 [facility] Comment on above: D-Dimer ELEVATED (>0 .49): Additional studies and clinicalassessments are indicated to conclude diagnosis of:Deep Vein Thrombosis (DVT) or Pulmonary Embolism (PE)CRITICAL VALUE VERIFIED. CALLED TO KADEEM [id number] Andressa Germain.RESULTS READ BACK BY SAME . Estimated Creatinine Clearance Calc 38.95 ml/min [facility] Estimated GFR (MDRD) Amer 64 mL/min >60 [facility] Comment on above: GFR Calc Estimated GFR (MDRD) Non-Af Amer 53 mL/min >60 [facility] Comment on above: Non- GFR Calc Troponin I High Sensitivity 3 pg/mL 3.0-54.0 [facility] Comment on above: Please Note: New Nu t Units and Gender Specific Reference Ranges. For more information see Policy Stat Procedure [place] High Sensitivity Troponin (TNIH) and attachments. Platelets bldOrdered By: Dr. Rosales on 07-29-2022 Platelets (Bld) [#/Vol] 296 10*3/uL 150-450 [facility] Serum or plasma calcium rosangela urement (mass/volume)Ordered By: Dr. Rosales on 07-29-2022 Calcium [Mass/Vol] 8.7 mg/dL 8.5-10.1 [facility] Serum or plasma creatinine m easurement (mass/volume)Ordered By: Dr. Rosales on 07-29-2022 Creatinine [Mass/Vol] 1.08 mg/dL 0.55-1.02 [facility] [place] Comment on above: The validity of the calculated GFR & GFRAA in patients over 70 years has not been determined. Clinical correlation is essential. Serum or plasma urea nitroge n measurement (mass/volume)Ordered By: Dr. Rosales on 07-29-2022 Urea nitrogen [Mass/Vol] 14 mg/dL 7-18 [facility] Thin prep Papanicolaou smear with manual screeningOrdered By: Dr. Rosales on 07-29-2022 Thin prep Papanicolaou smear with manual screening 5 5-15 [facility] Absolute lymphocyte countOrd ered By: Dr. Luis on 07-06-2022 Lymphocytes Auto (Unsp spec) [#/Vol] 1.65 10*3/uL 0.83-4.51 [facility] Basophil percentageOrdered B y: Dr. Luis on 07-06-2022 Basophils/100 WBC (Bld) 1.1 % 0-1 [facility] Bilirubin [Mass/Vol] 0.30 mg/dL 0.20-1.00 [facility] Comment on above: For patients on eltr ombopag therapy, use of Dimension [place] TBIL is not recommended. Chloride [Moles/Vol] 112 mmol/L 98-107 [facility] Eosinophils/100 WBC (Bld) 2.8 % 0-5 [facility] Glucose [Mass/Vol] 97 mg/dL 74-106 [facility] Neutrophils (Bld) [#/Vol] 2.3 10*3/uL 2.0-7.7 [facility] Neutrophils/100 WBC (Bld) 50.8 % 47-70 [facility] Potassium [Moles/Vol] 3.8 mmol/L 3.5-5.1 [facility] [place] Protein [Mass/Vol] 7.1 g/dL 6.4-8.2 [facility] Sodium [Moles/Vol] 141 mmol/L 136-145 [facility] WBC (Bld) [#/Vol] 4.6 10*3/uL 4.4-11.0 [facility] Blood erythrocytes count (nu mber/volume)Ordered By: Dr. Luis on 07-06-2022 RBC (Bld) [#/Vol] 4.35 10*6/uL 4.2-5.4 [facility] Blood hemoglobin measurement (mass/volume)Ordered By: Dr. Luis on 07-06-2022 Hemoglobin (Bld) [Mass/Vol] 13.3 g/dL 12.0-15.0 [facility] Blood lymphocytes/100 leukoc ytesOrdered By: Dr. Luis on 07-06-2022 Lymphocytes/100 WBC (Bld) 35.8 % 19-41 [facility] Blood monocytes/100 leukocyt esOrdered By: Dr. Luis on 07-06-2022 Monocytes/100 WBC (Bld) 9.3 % 0-10 [facility] Blood platelet mean volumeOr dered By: Dr. Luis on 07-06-2022 Platelet mean volume (Bld) [Entitic vol] 9.7 fL 6.2-12.0 [facility] Determination of erythrocyte mean corpuscular volume (MCV)Ordered By: Dr. Luis on 07-06-2022 MCV (RBC) [Entitic vol] 98.4 fL 81-99 [facility] Hematocrit Auto (Bld) [Volum e fraction]Ordered By: Dr. Luis on 07-06-2022 Hematocrit (Bld) [Volume fraction] 42.8 % 37-47 [facility] Laboratory - Chemistry and C hemistry - challengeOrdered By: Dr. Luis on 07-06-2022 ALP [Catalytic activity/Vol] 102 U/L 45-117 [facility] ALT [Catalytic activity/Vol] 17 U/L 13-56 [facility] CO2 [Moles/Vol] 27.0 mmol/L 21.0-32.0 [facility] Globulin (S) [Mass/Vol] 4.0 g/dL 2.2-4.2 [facility] Urea nitrogen/Creatinine [Mass ratio] 8.6 mg/mg 10-20 [facility] Laboratory - Hematology and Cell countsOrdered By: Dr. Luis on 07-06-2022 Erythrocyte distribution width (RBC) [Entitic vol] 50.4 fL 35.1-43.9 [facility] Erythrocyte distribution width (RBC) [Ratio] 13.9 % 11.6-14.6 [facility] Immature granulocytes/100 WBC (Bld) 0.200 % 0.0-0.9 [facility] Comment on above: IG% - Immature Granu locytes (promyelocytes, myelocytes and metamyelocytes) > 1% indicates that a LEFT SHIFT is Present. MCH (RBC) [Entitic mass] 30.6 pg 27.0-32.0 [facility] Nucleated RBC/100 WBC (Bld) [Ratio] 0 % 0-5 [facility] MCHC Auto (RBC) [Mass/Vol]Or dered By: Dr. Luis on 07-06-2022 MCHC (RBC) [Mass/Vol] 31.1 g/dL 32-36 [facility] [place] No Panel InformationOrdered By: Dr. Luis on 07-06-2022 Estimated GFR (MDRD) Amer 76 mL/min >60 [facility] Comment on above: GFR Calc Estimated GFR (MDRD) Non-Af Amer 63 mL/min >60 [facility] Comment on above: Non- GFR Calc Thyroid Stimulating Hormone (TSH) 0.47 uIU/mL 0.358-3.74 [facility] Vitamin D 25-Hydroxy 32.0 ng/mL [facility] Comment on above: Vitamin D 25(OH) Sta tus Range Deficiency <20 ng/mL (50nmol/L) Insufficiency 20 - 30 ng/mL (50 - 75 nmol/L) Sufficiency 30 - 100 ng/mL (75 - 250 nmol/L) Toxicity >100 ng/mL (>250 nmol/L) Platelets bldOrdered By: Dr. Luis on 07-06-2022 Platelets (Bld) [#/Vol] 351 10*3/uL 150-450 [facility] Serum or plasma albumin rosangela urement (mass/volume)Ordered By: Dr. Luis on 07-06-2022 Albumin [Mass/Vol] 3.1 g/dL 3.2-5.0 [facility] Serum or plasma albumin/glob ulin mass ratioOrdered By: Dr. Luis on 07-06-2022 Albumin/Globulin [Mass ratio] 0.8 {ratio} 0.9-2.4 [facility] Serum or plasma calcium rosangela urement (mass/volume)Ordered By: Dr. Luis on 07-06-2022 Calcium [Mass/Vol] 8.9 mg/dL 8.5-10.1 [facility] Serum or plasma creatinine m easurement (mass/volume)Ordered By: Dr. Luis on 07-06-2022 Creatinine [Mass/Vol] 0.94 mg/dL 0.55-1.02 [facility] [place] Comment on above: The validity of the calculated GFR & GFRAA in patients over 70 years has not been determined. Clinical correlation is essential. Serum or plasma urea nitroge n measurement (mass/volume)Ordered By: Dr. Luis on 07-06-2022 Urea nitrogen [Mass/Vol] 8 mg/dL 7-18 [facility] Thin prep Papanicolaou smear with manual screeningOrdered By: Dr. Luis on 07-06-2022 Thin prep Papanicolaou smear with manual screening 17 U/L 15-37 [facility] Thin prep Papanicolaou smear with manual screening 2 5-15 [facility] COVID-19 virus antigen assay Ordered By: Dr. Luis on 06-28-2022 SARS-CoV-2 (COVID-19) Ag IA.rapid Ql (Resp) Not detected Not Detect [facility] Comment on above: Normal Reference [...] 06-28-2022 Influenza Types A,B Direct FA (STEPHANIE) [facility] No Panel InformationOrdered By: Dr. Luis on 06-28-2022 Influenza Types A,B Direct FA (STEPHANIE) [facility] RSV Ag EIAOrdered By: Harish neal on 06-28-2022 RSV Ag Immune stain Ql (Tiss) [facility] RSV Ag EIAOrdered By: Dr. Desiree neal on 06-28-2022 RSV Ag Immune stain Ql (Tiss) [facility] Basophil percentageOrdered B y: Dr. Manley on 04-24-2022 Chloride [Moles/Vol] 113 mmol/L 98-107 [facility] Glucose [Mass/Vol] 100 mg/dL 74-106 [facility] Comment on above: Fasting Glucose resu lt from 100 to 125 mg/dL suggests IMPAIRED HOMEOSTASIS per A.D.A. criteria. Potassium [Moles/Vol] 3.8 mmol/L 3.5-5.1 [facility] [place] Sodium [Moles/Vol] 143 mmol/L 136-145 [facility] WBC (Bld) [#/Vol] 4.4 10*3/uL 4.4-11.0 [facility] Blood erythrocytes count (nu mber/volume)Ordered By: Dr. Manley on 04-24-2022 RBC (Bld) [#/Vol] 3.86 10*6/uL 4.2-5.4 [facility] Blood hemoglobin measurement (mass/volume)Ordered By: Dr. Manley on 04-24-2022 Hemoglobin (Bld) [Mass/Vol] 12.0 g/dL 12.0-15.0 [facility] Blood platelet mean volumeOr dered By: Dr. Manley on 04-24-2022 Platelet mean volume (Bld) [Entitic vol] 9.6 fL 6.2-12.0 [facility] Determination of erythrocyte mean corpuscular volume (MCV)Ordered By: Dr. Manley on 04-24-2022 MCV (RBC) [Entitic vol] 100.0 fL 81-99 [facility] Hematocrit Auto (Bld) [Volum e fraction]Ordered By: Dr. Manley on 04-24-2022 Hematocrit (Bld) [Volume fraction] 38.6 % 37-47 [facility] INR in Blood by Coagulation assayOrdered By: Dr. Manley on 04-24-2022 INR Coag (Bld) [Relative time] 1.0 {INR} [facility] Laboratory - Chemistry and C hemistry - challengeOrdered By: Dr. Manley on 04-24-2022 CO2 [Moles/Vol] 25.0 mmol/L 21.0-32.0 [facility] Urea nitrogen/Creatinine [Mass ratio] 9.7 mg/mg 10-20 [facility] Laboratory - CoagulationOrde red By: Dr. Manley on 04-24-2022 aPTT Coag (Bld) [Time] 33.1 s 24.1-36.2 [facility] Coag (PPP) [Time] 12.8 s 11.7-14.9 [facility] Laboratory - Hematology and Cell countsOrdered By: Dr. Manley on 04-24-2022 Erythrocyte distribution width (RBC) [Entitic vol] 53.3 fL 35.1-43.9 [facility] Erythrocyte distribution width (RBC) [Ratio] 14.3 % 11.6-14.6 [facility] MCH (RBC) [Entitic mass] 31.1 pg 27.0-32.0 [facility] MCHC Auto (RBC) [Mass/Vol]Or dered By: Dr. Manley on 04-24-2022 MCHC (RBC) [Mass/Vol] 31.1 g/dL 32-36 [facility] [place] No Panel InformationOrdered By: Dr. Manley on 04-24-2022 Estimated GFR (MDRD) Amer 77 mL/min >60 [facility] Comment on above: GFR Calc Estimated GFR (MDRD) Non-Af Amer 63 mL/min >60 [facility] Comment on above: Non- GFR Calc Platelets bldOrdered By: Dr. Manley on 04-24-2022 Platelets (Bld) [#/Vol] 408 10*3/uL 150-450 [facility] Serum or plasma calcium rosangela urement (mass/volume)Ordered By: Dr. Manley on 04-24-2022 Calcium [Mass/Vol] 8.8 mg/dL 8.5-10.1 [facility] Serum or plasma creatinine m easurement (mass/volume)Ordered By: Dr. Manley on 04-24-2022 Creatinine [Mass/Vol] 0.93 mg/dL 0.55-1.02 [facility] [place] Comment on above: The validity of the calculated GFR & GFRAA in patients over 70 years has not been determined. Clinical correlation is essential. Serum or plasma urea nitroge n measurement (mass/volume)Ordered By: Dr. Manley on 04-24-2022 Urea nitrogen [Mass/Vol] 9 mg/dL 7-18 [facility] Thin prep Papanicolaou smear with manual screeningOrdered By: Dr. Manley on 04-24-2022 Thin prep Papanicolaou smear with manual screening 5 5-15 [facility] Laboratory - Microbiology an d Antimicrobial susceptibilityOrdered By: Dr. Luis on 04-10-2022 SARS-CoV-2 (COVID-19) RNA ANTIONE+probe Ql (Unsp spec) Not detected Not Detect [facility] Comment on above: Normal Reference [...] 04-10-2022 Influenza Types A,B Direct FA (STEPHANIE) [facility] RSV Ag EIAOrdered By: Dr. Desiree neal on 04-10-2022 RSV Ag Immune stain Ql (Tiss) [facility] Laboratory - Microbiology an d Antimicrobial susceptibilityOrdered By: Dr. Luis on 03-31-2022 SARS-CoV-2 (COVID-19) RNA ANTIONE+probe Ql (Unsp spec) Not detected Not Detect [facility] Comment on above: Normal Reference [...] 03-31-2022 Influenza Types A,B Direct FA (STEPHANIE) [facility] RSV Ag EIAOrdered By: Dr. Desiree neal on 03-31-2022 RSV Ag Immune stain Ql (Tiss) [facility] Absolute lymphocyte countOrd ered By: Dr. Luis on 12-28-2021 Lymphocytes Auto (Unsp spec) [#/Vol] 1.82 10*3/uL 0.83-4.51 [facility] Basophil percentageOrdered B y: Dr. Luis on 12-28-2021 Basophils/100 WBC (Bld) 1.0 % 0-1 [facility] Bilirubin [Mass/Vol] 0.50 mg/dL 0.20-1.00 [facility] Comment on above: For patients on eltr ombopag therapy, use of Dimension [place] TBIL is not recommended. Chloride [Moles/Vol] 112 mmol/L 98-107 [facility] Eosinophils/100 WBC (Bld) 1.7 % 0-5 [facility] Glucose [Mass/Vol] 97 mg/dL 74-106 [facility] Neutrophils (Bld) [#/Vol] 1.7 10*3/uL 2.0-7.7 [facility] Neutrophils/100 WBC (Bld) 43.2 % 47-70 [facility] Potassium [Moles/Vol] 3.7 mmol/L 3.5-5.1 [facility] [place] Protein [Mass/Vol] 6.2 g/dL 6.4-8.2 [facility] Sodium [Moles/Vol] 141 mmol/L 136-145 [facility] WBC (Bld) [#/Vol] 4.0 10*3/uL 4.4-11.0 [facility] Blood erythrocytes count (nu mber/volume)Ordered By: Dr. Luis on 12-28-2021 RBC (Bld) [#/Vol] 3.56 10*6/uL 4.2-5.4 [facility] Blood hemoglobin measurement (mass/volume)Ordered By: Dr. Luis on 12-28-2021 Hemoglobin (Bld) [Mass/Vol] 11.2 g/dL 12.0-15.0 [facility] Blood lymphocytes/100 leukoc ytesOrdered By: Dr. Luis on 12-28-2021 Lymphocytes/100 WBC (Bld) 45.2 % 19-41 [facility] Blood monocytes/100 leukocyt esOrdered By: Dr. Luis on 12-28-2021 Monocytes/100 WBC (Bld) 8.7 % 0-10 [facility] Blood platelet mean volumeOr dered By: Dr. Luis on 12-28-2021 Platelet mean volume (Bld) [Entitic vol] 11.1 fL 6.2-12.0 [facility] Determination of erythrocyte mean corpuscular volume (MCV)Ordered By: Dr. Luis on 12-28-2021 MCV (RBC) [Entitic vol] 96.1 fL 81-99 [facility] Hematocrit Auto (Bld) [Volum e fraction]Ordered By: Dr. Luis on 12-28-2021 Hematocrit (Bld) [Volume fraction] 34.2 % 37-47 [facility] Laboratory - Chemistry and C hemistry - challengeOrdered By: Dr. Luis on 12-28-2021 ALP [Catalytic activity/Vol] 68 U/L 45-117 [facility] ALT [Catalytic activity/Vol] 14 U/L 13-56 [facility] CO2 [Moles/Vol] 25.0 mmol/L 21.0-32.0 [facility] Globulin (S) [Mass/Vol] 3.0 g/dL 2.2-4.2 [facility] Urea nitrogen/Creatinine [Mass ratio] 8.5 mg/mg 10-20 [facility] Laboratory - Hematology and Cell countsOrdered By: Dr. Luis on 12-28-2021 Erythrocyte distribution width (RBC) [Entitic vol] 46.9 fL 35.1-43.9 [facility] Erythrocyte distribution width (RBC) [Ratio] 13.2 % 11.6-14.6 [facility] Immature granulocytes/100 WBC (Bld) 0.200 % 0.0-0.9 [facility] Comment on above: IG% - Immature Granu locytes (promyelocytes, myelocytes and metamyelocytes) > 1% indicates that a LEFT SHIFT is Present. MCH (RBC) [Entitic mass] 31.5 pg 27.0-32.0 [facility] Nucleated RBC/100 WBC (Bld) [Ratio] 0 % 0-5 [facility] MCHC Auto (RBC) [Mass/Vol]Or dered By: Dr. Luis on 12-28-2021 MCHC (RBC) [Mass/Vol] 32.7 g/dL 32-36 [facility] [place] No Panel InformationOrdered By: Dr. Luis on 12-28-2021 Estimated GFR (MDRD) Amer 66 mL/min >60 [facility] Comment on above: GFR Calc Estimated GFR (MDRD) Non-Af Amer 54 mL/min >60 [facility] Comment on above: Non- GFR Calc Thyroid Stimulating Hormone (TSH) 0.74 uIU/mL 0.358-3.74 [facility] Vitamin D 25-Hydroxy 45.5 ng/mL [facility] Comment on above: Vitamin D 25(OH) Sta tus Range Deficiency <20 ng/mL (50nmol/L) Insufficiency 20 - 30 ng/mL (50 - 75 nmol/L) Sufficiency 30 - 100 ng/mL (75 - 250 nmol/L) Toxicity >100 ng/mL (>250 nmol/L) Platelets bldOrdered By: Dr. Luis on 12-28-2021 Platelets (Bld) [#/Vol] 247 10*3/uL 150-450 [facility] Serum or plasma albumin rosangela urement (mass/volume)Ordered By: Dr. Luis on 12-28-2021 Albumin [Mass/Vol] 3.2 g/dL 3.2-5.0 [facility] Serum or plasma albumin/glob ulin mass ratioOrdered By: Dr. Luis on 12-28-2021 Albumin/Globulin [Mass ratio] 1.1 {ratio} 0.9-2.4 [facility] Serum or plasma calcium rosangela urement (mass/volume)Ordered By: Dr. Luis on 12-28-2021 Calcium [Mass/Vol] 8.8 mg/dL 8.5-10.1 [facility] Serum or plasma creatinine m easurement (mass/volume)Ordered By: Dr. Luis on 12-28-2021 Creatinine [Mass/Vol] 1.06 mg/dL 0.55-1.02 [facility] [place] Comment on above: The validity of the calculated GFR & GFRAA in patients over 70 years has not been determined. Clinical correlation is essential. Serum or plasma urea nitroge n measurement (mass/volume)Ordered By: Dr. Luis on 12-28-2021 Urea nitrogen [Mass/Vol] 9 mg/dL 7-18 [facility] Thin prep Papanicolaou smear with manual screeningOrdered By: Dr. Luis on 12-28-2021 Thin prep Papanicolaou smear with manual screening 13 U/L 15-37 [facility] Thin prep Papanicolaou smear with manual screening 4 5-15 [facility] Laboratory - Microbiology an d Antimicrobial susceptibilityon 12-01-2021 SARS-CoV-2 (COVID-19) RNA ANTIONE+probe Ql (Unsp spec) Not detected Not Detect [facility] Work Phone: Comment on above: [...] Auto (Unsp spec) [#/Vol] 1.71 10*3/uL 0.83-4.51 [facility] Work Phone: Basophil percentageon 2021 Basophils/100 WBC (Bld) 1.2 % 0-1 [facility] Work Phone: Bilirubin [Mass/Vol] 0.30 mg/dL 0.20-1.00 [facility] Work Phone: [phone] Comment on above: For patients on eltr ombopag therapy, use of Dimension [place] TBIL is not recommended. Chloride [Moles/Vol] 106 mmol/L 98-107 [facility] Work Phone: Eosinophils/100 WBC (Bld) 0.9 % 0-5 [facility] Work Phone: Glucose [Mass/Vol] 117 mg/dL 74-106 [facility] Work Phone: [phone] Comment on above: Fasting Glucose resu lt from 100 to 125 mg/dL suggests IMPAIRED HOMEOSTASIS per A.D.A. criteria. Neutrophils (Bld) [#/Vol] 1.2 10*3/uL 2.0-7.7 [facility] Work Phone: Neutrophils/100 WBC (Bld) 37.4 % 47-70 [facility] Work Phone: Potassium [Moles/Vol] 3.7 mmol/L 3.5-5.1 [facility] [place] Work Phone: Protein [Mass/Vol] 6.4 g/dL 6.4-8.2 [facility] Work Phone: Sodium [Moles/Vol] 137 mmol/L 136-145 [facility] Work Phone: WBC (Bld) [#/Vol] 3.3 10*3/uL 4.4-11.0 [facility] Work Phone: Blood erythrocytes count (nu mber/volume)on 06-27-2021 RBC (Bld) [#/Vol] 3.82 10*6/uL 4.2-5.4 [facility] Work Phone: Blood hemoglobin measurement (mass/volume)on 06-27-2021 Hemoglobin (Bld) [Mass/Vol] 12.2 g/dL 12.0-15.0 [facility] Work Phone: Blood lymphocytes/100 leukoc yteson 06-27-2021 Lymphocytes/100 WBC (Bld) 51.7 % 19-41 [facility] Work Phone: Blood monocytes/100 leukocyt eson 06-27-2021 Monocytes/100 WBC (Bld) 8.5 % 0-10 [facility] Work Phone: [phone] Blood platelet mean volumeon 06-27-2021 Platelet mean volume (Bld) [Entitic vol] 10.5 fL 6.2-12.0 [facility] Work Phone: Determination of erythrocyte mean corpuscular volume (MCV)on 06-27-2021 MCV (RBC) [Entitic vol] 95.0 fL 81-99 [facility] Work Phone: Hematocrit Auto (Bld) [Volum e fraction]on 06-27-2021 Hematocrit (Bld) [Volume fraction] 36.3 % 37-47 [facility] Work Phone: Laboratory - Chemistry and C hemistry - challengeon 06-27-2021 ALP [Catalytic activity/Vol] 74 U/L 45-117 [facility] Work Phone: [phone] ALT [Catalytic activity/Vol] 27 U/L 13-56 [facility] Work Phone: [phone] CO2 [Moles/Vol] 25.0 mmol/L 21.0-32.0 [facility] Work Phone: [phone] Globulin (S) [Mass/Vol] 3.2 g/dL 2.2-4.2 [facility] Work Phone: [phone] Urea nitrogen/Creatinine [Mass ratio] 6.4 mg/mg 10-20 [facility] Work Phone: Laboratory - Hematology and Cell countson 06-27-2021 Erythrocyte distribution width (RBC) [Entitic vol] 44.8 fL 35.1-43.9 [facility] Work Phone: Erythrocyte distribution width (RBC) [Ratio] 12.9 % 11.6-14.6 [facility] Work Phone: Immature granulocytes/100 WBC (Bld) 0.300 % 0.0-0.9 [facility] Work Phone: Comment on above: IG% - Immature Granu locytes (promyelocytes, myelocytes and metamyelocytes) > 1% indicates that a LEFT SHIFT is Present. MCH (RBC) [Entitic mass] 31.9 pg 27.0-32.0 [facility] Work Phone: Nucleated RBC/100 WBC (Bld) [Ratio] 0.6 % 0-5 [facility] Work Phone: MCHC Auto (RBC) [Mass/Vol]on 06-27-2021 MCHC (RBC) [Mass/Vol] 33.6 g/dL 32-36 [facility] [place] Work Phone: No Panel Informationon 06-27 Estimated GFR (MDRD) Amer 63 mL/min >60 [facility] Work Phone: Comment on above: GFR Calc Estimated GFR (MDRD) Non-Af Amer 52 mL/min >60 [facility] Work Phone: Comment on above: Non- GFR Calc Thyroid Stimulating Hormone (TSH) 0.50 uIU/mL 0.358-3.74 [facility] Work Phone: Vitamin D 25-Hydroxy 29.8 ng/mL [facility] Work Phone: Comment on above: Vitamin D 25(OH) Sta tus Range Deficiency <20 ng/mL (50nmol/L) Insufficiency 20 - 30 ng/mL (50 - 75 nmol/L) Sufficiency 30 - 100 ng/mL (75 - 250 nmol/L) Toxicity >100 ng/mL (>250 nmol/L) Platelets bldon 06-27-2021 Platelets (Bld) [#/Vol] 282 10*3/uL 150-450 [facility] Work Phone: Serum or plasma albumin rosangela urement (mass/volume)on 06-27-2021 Albumin [Mass/Vol] 3.2 g/dL 3.2-5.0 [facility] Work Phone: Serum or plasma albumin/glob ulin mass ratioon 06-27-2021 Albumin/Globulin [Mass ratio] 1.0 {ratio} 0.9-2.4 [facility] Work Phone: Serum or plasma calcium rosangela urement (mass/volume)on 06-27-2021 Calcium [Mass/Vol] 8.6 mg/dL 8.5-10.1 [facility] Work Phone: Serum or plasma creatinine m easurement (mass/volume)on 06-27-2021 Creatinine [Mass/Vol] 1.10 mg/dL 0.55-1.02 [facility] [place] Work Phone: Comment on above: The validity of the calculated GFR & GFRAA in patients over 70 years has not been determined. Clinical correlation is essential. Serum or plasma urea nitroge n measurement (mass/volume)on 06-27-2021 Urea nitrogen [Mass/Vol] 7 mg/dL 7-18 [facility] Work Phone: Thin prep Papanicolaou smear with manual screeningon 06-27-2021 Thin prep Papanicolaou smear with manual screening 24 U/L 15-37 [facility] Work Phone: Thin prep Papanicolaou smear with manual screening 6 5-15 [facility] Work Phone: No Panel Information Influenza Types A,B Direct FA (STEPHANIE) [facility] Work Phone: Vital Signs Date Time Vital Sign Value Performing Clinician Facility 09-21-2024 19:39-0400 Body temperature 99.3 [degF] Dr. Harish Luis MD Work Phone: [facility] 09-21-2024 19:39-0400 Diastolic blood pressure 74 mm[Hg] Dr. Harish Luis MD Work Phone: 1(939)069-857120 [place] [address] 09-21-2024 19:39-0400 Heart rate 86 /min Dr. Harish Luis MD Work Phone: 4(911)288-781020 [place] [address] 09-21-2024 19:39-0400 Respiratory rate 24 /min Dr. Harish Luis MD Work Phone: 6(152)189-232920 [place] [address] 09-21-2024 19:39-0400 SaO2% (BldA) [Mass fraction] 97 % Dr. Harish Luis MD Work Phone: 3(304)417-368489 [place] [address] 09-21-2024 19:39-0400 Systolic blood pressure 140 mm[Hg] Dr. Harish Luis MD Work Phone: 6(637)737-816989 [place] [address] 09-21-2024 18:01-0400 Body height 157.[address] Harish Luis MD Work Phone: 7(327)826-412689 [place] [address] 09-21-2024 18:01-0400 Body mass index (BMI) [Ratio] 20.4 kg/m2 Dr. Harish Luis MD Work Phone: 9(181)860-567289 [place] [address] 09-21-2024 18:01-0400 Body weight 50.[address] Harish Luis MD Work Phone: 1(905)820-858689 [place] [address] 08-29-2024 07:54-0400 Body temperature 97.1 [degF] Dr. Harish Luis MD Work Phone: 9(688)091-724489 [place] [address] 08-29-2024 07:54-0400 Diastolic blood pressure 89 mm[Hg] Dr. Harish Luis MD Work Phone: 5(858)273-717089 [place] [address] 08-29-2024 07:54-0400 Heart rate 80 /min Dr. Harish Luis MD Work Phone: 9(794)312-047489 [place] [address] 08-29-2024 07:54-0400 Respiratory rate 18 /min Dr. Harish Luis MD Work Phone: 7(650)490-390289 [place] [address] 08-29-2024 07:54-0400 SaO2% (BldA) [Mass fraction] 93 % Dr. Harish Luis MD Work Phone: [facility] 08-29-2024 07:54-0400 Systolic blood pressure 141 mm[Hg] Dr. Harish Luis MD Work Phone: 9(136)294-838420 [place] [address] 08-28-2024 10:15-0400 Body height 157.[address] Harish Luis MD Work Phone: 3(532)150-701289 [place] [address] 08-28-2024 10:15-0400 Body weight 48.[address] Harish Luis MD Work Phone: 3(013)739-685789 [place] [address] 08-27-2024 20:46-0400 Body mass index (BMI) [Ratio] 19.7 kg/m2 Dr. Harish Luis MD Work Phone: 1(219)180-878789 [place] [address] 08-27-2024 20:00-0400 Diastolic blood pressure 94 mm[Hg] Dr. Harish Luis MD Work Phone: 2(256)050-905389 [place] [address] 08-27-2024 20:00-0400 Heart rate 103 /min Dr. Harish Luis MD Work Phone: 2(035)847-723189 [place] [address] 08-27-2024 20:00-0400 Respiratory rate 30 /min Dr. Harish Luis MD Work Phone: 4(451)927-150289 [place] [address] 08-27-2024 20:00-0400 Systolic blood pressure 142 mm[Hg] Dr. Harish Luis MD Work Phone: 6(160)676-524520 [place] [address] 08-27-2024 18:05-0400 Body temperature 100.9 [degF] Dr. Harish Luis MD Work Phone: 1(229)334-290720 [place] [address] 08-27-2024 18:05-0400 SaO2% (BldA) [Mass fraction] 93 % Dr. Harish Luis MD Work Phone: 6(165)568-033520 [place] [address] 08-27-2024 15:36-0400 Body height 157.[address] Harish Luis MD Work Phone: 8(461)024-478420 [place] [address] 08-27-2024 15:36-0400 Body mass index (BMI) [Ratio] 19.8 kg/m2 Dr. Harish Luis MD Work Phone: [facility] 08-27-2024 15:36-0400 Body weight [address] Harish Luis MD Work Phone: [facility] 06-04-2024 15:44-0400 Body mass index (BMI) [Ratio] 20.1 kg/m2 Dr. Harish Luis MD Work Phone: 2(245)719-355520 [place] [address] 06-04-2024 15:44-0400 Body weight [address] Harish Luis MD Work Phone: 5(080)550-490420 [place] [address] 06-04-2024 15:08-0400 Body height 157.[address] Harish Luis MD Work Phone: 7(017)886-563820 [place] [address] 06-04-2024 15:08-0400 Body temperature 97 [degF] Dr. Harish Luis MD Work Phone: 2(125)678-058920 [place] [address] 06-04-2024 15:08-0400 Diastolic blood pressure 81 mm[Hg] Dr. Harish Luis MD Work Phone: 7(643)288-592720 [place] [address] 06-04-2024 15:08-0400 Heart rate 106 /min Dr. Harish Luis MD Work Phone: [facility] 06-04-2024 15:08-0400 Respiratory rate 19 /min Dr. Harish Luis MD Work Phone: 3(605)003-935520 [place] [address] 06-04-2024 15:08-0400 SaO2% (BldA) [Mass fraction] 98 % Dr. Harish Luis MD Work Phone: [facility] 06-04-2024 15:08-0400 Systolic blood pressure 130 mm[Hg] Dr. Harish Luis MD Work Phone: [facility] 07-30-2023 18:02-0400 Body temperature 97.6 [degF] [facility] 07-30-2023 18:02-0400 Diastolic blood pressure 63 mm[Hg] [facility] 07-30-2023 18:02-0400 Heart rate 90 /min [facility] 07-30-2023 18:02-0400 Inhaled oxygen flow rate 3 L/min [facility] 07-30-2023 18:02-0400 Respiratory rate 17 /min [facility] 07-30-2023 18:02-0400 SaO2% (BldA) [Mass fraction] 95 % [facility] 07-30-2023 18:02-0400 Systolic blood pressure 113 mm[Hg] [facility] 07-30-2023 13:51-0400 Body mass index (BMI) [Ratio] 22.4 kg/m2 [facility] 07-30-2023 13:51-0400 Body weight 55.6 kg [facility] 07-30-2023 13:35-0400 Body height 157.48 cm [facility] 07-24-2023 22:13-0400 Body temperature 97.1 [degF] [facility] 07-24-2023 22:13-0400 Diastolic blood pressure 77 mm[Hg] [facility] 07-24-2023 22:13-0400 Heart rate 61 /min [facility] 07-24-2023 22:13-0400 Respiratory rate 18 /min [facility] 07-24-2023 22:13-0400 SaO2% (BldA) [Mass fraction] 93 % [facility] 07-24-2023 22:13-0400 Systolic blood pressure 137 mm[Hg] [facility] 07-24-2023 19:51-0400 Body height 157.48 cm [facility] 03-17-2023 13:31-0500 Body height 160.02 cm [facility] 03-17-2023 13:31-0500 Body temperature 98 [degF] [facility] 03-17-2023 13:31-0500 Diastolic blood pressure 73 mm[Hg] [facility] 03-17-2023 13:31-0500 Heart rate 87 /min [facility] 03-17-2023 13:31-0500 Respiratory rate 14 /min [facility] 03-17-2023 13:31-0500 SaO2% (BldA) [Mass fraction] 97 % [facility] 03-17-2023 13:31-0500 Systolic blood pressure 128 mm[Hg] [facility] 11-04-2022 09:15-0400 Body temperature 98.2 [degF] Dr. Harish Luis Work Phone: [facility] 11-04-2022 09:15-0400 Diastolic blood pressure 75 mm[Hg] Dr. Harish Luis Work Phone: [facility] 11-04-2022 09:15-0400 Heart rate 88 /min Dr. Harish Luis Work Phone: [facility] 11-04-2022 09:15-0400 Respiratory rate 14 /min Dr. Harish Luis Work Phone: [facility] 11-04-2022 09:15-0400 SaO2% (BldA) [Mass fraction] 96 % Dr. Harish Luis Work Phone: [facility] 11-04-2022 09:15-0400 Systolic blood pressure 137 mm[Hg] Dr. Harish Luis Work Phone: [facility] 11-03-2022 12:44-0400 Body height 160.[address] Harish Luis Work Phone: [facility] 11-03-2022 12:44-0400 Body weight 48.[address] Harish Luis Work Phone: [facility] 11-03-2022 10:59-0400 Body mass index (BMI) [Ratio] 18.9 kg/m2 Dr. Harish Luis Work Phone: [facility] 11-01-2022 11:00-0400 Diastolic blood pressure 54 mm[Hg] Dr. Harish Luis Work Phone: [facility] 11-01-2022 11:00-0400 Systolic blood pressure 110 mm[Hg] Dr. Harish Luis Work Phone: [facility] 11-01-2022 10:01-0400 Body temperature 98.3 [degF] Dr. Harish Luis Work Phone: [facility] 11-01-2022 10:01-0400 Heart rate 69 /min Dr. Harish Luis Work Phone: [facility] 11-01-2022 10:01-0400 Respiratory rate 13 /min Dr. Harish Luis Work Phone: [facility] 11-01-2022 10:01-0400 SaO2% (BldA) [Mass fraction] 99 % Dr. Harish Luis Work Phone: [facility] 11-01-2022 07:48-0400 Body height 159.[address] Harish Luis Work Phone: 8(481)908-294020 [place] [address] 11-01-2022 07:48-0400 Body mass index (BMI) [Ratio] 19.7 kg/m2 Dr. Harish Luis Work Phone: 7(045)103-037420 [place] [address] 11-01-2022 07:48-0400 Body weight 50.[address] Harish Luis Work Phone: [facility] 10-14-2022 08:16-0400 SaO2% (BldA) [Mass fraction] 95 % Dr. Harish Luis Work Phone: [facility] 10-14-2022 04:08-0400 Body mass index (BMI) [Ratio] 19.4 kg/m2 Dr. Harish Luis Work Phone: [facility] 10-14-2022 04:08-0400 Body weight 49.[address] Harish Luis Work Phone: [facility] 10-14-2022 04:06-0400 Body temperature 98.6 [degF] Dr. Harish Luis Work Phone: [facility] 10-14-2022 04:06-0400 Diastolic blood pressure 62 mm[Hg] Dr. Harish Luis Work Phone: [facility] 10-14-2022 04:06-0400 Heart rate 79 /min Dr. Harish Luis Work Phone: [facility] 10-14-2022 04:06-0400 Respiratory rate 16 /min Dr. Harish Luis Work Phone: [facility] 10-14-2022 04:06-0400 Systolic blood pressure 105 mm[Hg] Dr. Harish Luis Work Phone: [facility] 10-13-2022 15:38-0400 Body height 160.[address] Harish Luis Work Phone: [facility] 10-13-2022 14:58-0400 Body temperature 98.1 [degF] Dr. Harish Luis Work Phone: [facility] 10-13-2022 14:58-0400 Diastolic blood pressure 67 mm[Hg] Dr. Harish Luis Work Phone: 5(205)181-249520 [place] [address] 10-13-2022 14:58-0400 Heart rate 74 /min Dr. Harish Luis Work Phone: 8(893)963-168420 [place] [address] 10-13-2022 14:58-0400 Respiratory rate 16 /min Dr. Harish Luis Work Phone: [facility] 10-13-2022 14:58-0400 SaO2% (BldA) [Mass fraction] 95 % Dr. Harish Luis Work Phone: [facility] 10-13-2022 14:58-0400 Systolic blood pressure 121 mm[Hg] Dr. Harish Luis Work Phone: [facility] 10-13-2022 10:04-0400 Body height 160.[address] Harish Luis Work Phone: [facility] 10-13-2022 10:04-0400 Body mass index (BMI) [Ratio] 18.6 kg/m2 Dr. Harish Luis Work Phone: [facility] 10-13-2022 10:04-0400 Body weight 47.[address] Harish Luis Work Phone: [facility] 08-26-2022 04:35-0400 Diastolic blood pressure 79 mm[Hg] Dr. Harish Luis Work Phone: [facility] 08-26-2022 04:35-0400 Heart rate 69 /min Dr. Harish Luis Work Phone: [facility] 08-26-2022 04:35-0400 Respiratory rate 15 /min Dr. Harish Luis Work Phone: [facility] 08-26-2022 04:35-0400 SaO2% (BldA) [Mass fraction] 95 % Dr. Harish Luis Work Phone: [facility] 08-26-2022 04:35-0400 Systolic blood pressure 143 mm[Hg] Dr. Harish Luis Work Phone: [facility] 08-26-2022 02:42-0400 Body mass index (BMI) [Ratio] 19.6 kg/m2 Dr. Harish Luis Work Phone: 4(824)385-117520 [place] [address] 08-26-2022 02:42-0400 Body temperature 97.5 [degF] Dr. Harish Luis Work Phone: 9(525)417-323720 [place] [address] 08-26-2022 02:42-0400 Body weight 50.[address] Harish Luis Work Phone: [facility] 08-03-2022 15:30-0400 Body temperature 98.1 [degF] Dr. Harish Luis Work Phone: 4(351)263-881820 [place] [address] 08-03-2022 15:30-0400 Diastolic blood pressure 81 mm[Hg] Dr. Harish Luis Work Phone: [facility] 08-03-2022 15:30-0400 Heart rate 66 /min Dr. Harish Luis Work Phone: [facility] 08-03-2022 15:30-0400 Respiratory rate 16 /min Dr. Harish Luis Work Phone: [facility] 08-03-2022 15:30-0400 SaO2% (BldA) [Mass fraction] 93 % Dr. Harish Luis Work Phone: 9(916)693-986842 [place] [address] 08-03-2022 15:30-0400 Systolic blood pressure 133 mm[Hg] Dr. Harish Luis Work Phone: [facility] 08-03-2022 12:57-0400 Body mass index (BMI) [Ratio] 21.4 kg/m2 Dr. Harish Luis Work Phone: [facility] 08-03-2022 11:31-0400 Inhaled oxygen flow rate 2 L/min Dr. Harish Luis Work Phone: 0(249)017-637720 [place] [address] 08-02-2022 14:18-0400 Body weight 54.[address] Harish Luis Work Phone: 8(145)552-914920 [place] [address] 07-29-2022 09:48-0400 Body temperature 97.2 [degF] Dr. Harish Luis Work Phone: 2(712)056-250021 [address] 07-29-2022 09:48-0400 Diastolic blood pressure 78 mm[Hg] Dr. Harish Luis Work Phone: 2(747)883-540220 [place] [address] 07-29-2022 09:48-0400 Heart rate 90 /min Dr. Harish Luis Work Phone: 2(143)665-589120 [place] [address] 07-29-2022 09:48-0400 Inhaled oxygen flow rate 4 L/min Dr. Harish Luis Work Phone: 6(092)359-636520 [place] [address] 07-29-2022 09:48-0400 Respiratory rate 20 /min Dr. Harish Luis Work Phone: 7(463)056-233120 [place] [address] 07-29-2022 09:48-0400 SaO2% (BldA) [Mass fraction] 95 % Dr. Harish Luis Work Phone: [facility] 07-29-2022 09:48-0400 Systolic blood pressure 112 mm[Hg] Dr. Harish Luis Work Phone: 0(666)672-656520 [place] [address] 07-29-2022 07:43-0400 Body height 160.[address] Harish Luis Work Phone: 4(742)804-427920 [place] [address] 07-29-2022 07:43-0400 Body mass index (BMI) [Ratio] 24.2 kg/m2 Dr. Harish Luis Work Phone: [facility] 07-29-2022 07:43-0400 Body weight 62.[address] Harish Luis Work Phone: [facility] 04-27-2022 08:40-0500 Body temperature 97.5 [degF] Dr. Harish Luis Work Phone: [facility] 04-27-2022 08:40-0500 Diastolic blood pressure 62 mm[Hg] Dr. Harish Luis Work Phone: 3(532)112-698120 [place] [address] 04-27-2022 08:40-0500 Heart rate 79 /min Dr. Harish Luis Work Phone: 5(562)307-887520 [place] [address] 04-27-2022 08:40-0500 Respiratory rate 16 /min Dr. Harish Luis Work Phone: [facility] 04-27-2022 08:40-0500 SaO2% (BldA) [Mass fraction] 96 % Dr. Harish Luis Work Phone: [facility] 04-27-2022 08:40-0500 Systolic blood pressure 105 mm[Hg] Dr. Harish Luis Work Phone: [facility] 04-27-2022 06:26-0500 Body height 160.[address] Harish Luis Work Phone: [facility] 04-27-2022 06:26-0500 Body mass index (BMI) [Ratio] 18.3 kg/m2 Dr. Harish Luis Work Phone: [facility] 04-27-2022 06:26-05[address] Body weight [address] Harish Luis Work Phone: [facility] Encounters Encounter Date Encounter Type Care Provider Facility Start: 09-21-2024 Evaluation and management of inpatient Dr. Ricardo Justice DO -Progressive Care Unit Work Phone: Start: 09-21-[address] Harish Luis MD Work Phone: -Progressive Care Unit Start: 08-29-2024 Non-[facility] Work Phone: Start: 08-28-2024 Non-patient / [facility] Work Phone: Start: 08-27-2024 ambulatory Christofer thea Fac ility:[facility] Start: 08-27-2024 End: 08-29-2024 Evaluation and management of inpatient Dr. Christofer Espino DO [facility] Care Unit Work Phone: Start: 07-15-2024 End: 07-15-[address] Harish Luis MD -Cat Scan [facility] Work Phone: Start: 07-15-2024 End: 07-15-2024 ambulatory Harish Chi Toby Facility:[facility] Start: 06-04-2024 End: 06-04-2024 Emergency department patient visit Dr. Harish Luis MD Work Phone: -Emergency Department Work Phone: Start: 03-31-2024 End: 03-31-[address] Harish Luis MD -Cat Scan, [facility] Work Phone: Start: 03-31-2024 End: 03-31-2024 ambulatory Harish Chi Toby Facility:[facility] Start: 02-19-2024 End: 02-19-[address] Harish Luis MD -Laboratory, Phy Office 3rd Tnr Start: 02-19-2024 End: 02-19-2024 ambulatory Harish Chi Toby Facility:[facility] Start: 01-09-2024 End: 01-09-2024 ambulatory Harish Chi Toby Facility:[facility] Start: 01-03-2024 ambulatory Harish Chi Toby Facility:[facility] Start: 01-03-2024 End: 01-04-2024 Evaluation and management of inpatient Harish Chi Toby Facility:[facility] Start: 12-12-2023 End: 12-12-2023 ambulatory Jeses Tovar Facility:[facility] Start: 12-06-2023 End: 12-06-2023 ambulatory Daniel Mollison Facility:[facility] Start: 11-28-2023 End: 11-28-2023 ambulatory [facility] Facility:[facility] Start: 11-02-2023 End: 11-02-2023 ambulatory Daniel Mollison Facility:[facility] Start: 10-18-2023 ambulatory Daniel Mollison Facility :[facility] Start: 10-12-2023 ambulatory Daniel Mollison Facility :[facility] Start: 10-01-[facility] Start: 07-30-2023 Evaluation and management of inpatient [facility]-Progressive Care Unit Work Phone: Start: 07-27-2023 Patient encounter procedure [facility]-Radiology, [facility] Work Phone: Start: 07-24-2023 End: 07-24-2023 Emergency department patient visit [facility]-Emergency Department Work Phone: Start: 07-11-2023 End: 07-11-2023 ambulatory [facility] Work Phone: Start: 07-11-2023 End: 07-11-2023 Patient encounter procedure [facility]-Laboratory, Phy Office 3rd Flr Start: 06-27-2023 End: 06-27-2023 ambulatory [facility] Work Phone: Start: 06-27-2023 End: 06-27-2023 Patient encounter procedure [facility]-Laboratory, Phy Office 3rd Flr Start: 03-17-2023 End: 03-17-2023 Emergency department patient visit [facility]-Emergency Department Work Phone: Start: 01-01-2023 End: 01-01-[address] Harish Luis Work Phone: [facility] Work Phone: Start: 01-01-2023 End: 01-01-[address] Harish Luis Work Phone: [facility]-Laboratory, Phy Office 3rd Flr Start: 11-04-2022 Non-patient / Non-visit Dr. Levar Luis Work Phone: [facility] Work Phone: Start: 11-03-2022 Non-patient / Non-visit Dr. Levar Luis Work Phone: [facility] Start: 11-03-2022 Non-patient / Non-visit Dr. Levar Luis Work Phone: [facility] Work Phone: Start: 11-03-2022 End: 11-03-2022 Non-patient / Non-visit Dr. Harish Luis Work Phone: [facility] Work Phone: Start: 11-02-2022 Non-patient / Non-visit Dr. Levar Luis Work Phone: [facility] Start: 11-02-2022 Non-patient / Non-visit Dr. Levar Luis Work Phone: [facility] Work Phone: Start: 11-01-2022 Non-patient / Non-visit Dr. Levar Luis Work Phone: [facility] Work Phone: Start: 11-01-2022 End: 11-04-2022 Evaluation and management of inpatient [facility]. Harish Luis [facility] Work Phone: Start: 10-14-2022 Non-patient / Non-visit Dr. Levar Luis Work Phone: [facility] Start: 10-13-2022 Non-patient / Non-visit Dr. Levar Luis Work Phone: [facility] Work Phone: Start: 10-13-2022 End: 07-29-2023 Evaluation and management of inpatient Dr. Harish Luis Work Phone: [facility]-Medical Surgical 3 Work Phone: Start: 10-12-2022 End: 10-12-[address] Harish Luis Work Phone: [facility] Work Phone: Start: 10-12-2022 End: 10-12-[address] Harish Luis Work Phone: [facility]-Cat Scan, [facility] Work Phone: Start: 08-26-2022 End: 08-26-2022 Emergency department patient visit Dr. Harish Luis Work Phone: [facility]-Emergency Department Work Phone: Start: 08-03-2022 Non-patient / Non-visit Dr. Levar Luis Work Phone: [facility] Start: 08-02-2022 Non-patient / Non-visit Dr. Levar Luis Work Phone: [facility] Start: 08-02-2022 Non-patient / Non-visit Dr. Levar Luis Work Phone: [facility] Work Phone: Start: 08-01-2022 Non-patient / Non-visit Dr. Levar Lius Work Phone: [facility] Start: 08-01-2022 Non-patient / Non-visit Dr. Levar Luis Work Phone: [facility] Work Phone: Start: 07-31-2022 Non-patient / Non-visit Dr. Levar Luis Work Phone: [facility] Work Phone: Start: 07-30-2022 Non-patient / Non-visit Dr. Levar Luis Work Phone: [facility] Work Phone: Start: 07-29-2022 Non-patient / Non-visit Dr. Levar Luis Work Phone: [facility] Work Phone: Start: 07-29-2022 End: 08-03-2022 Evaluation and management of inpatient Dr. Harish Luis Work Phone: [facility] Start: 07-06-2022 End: 07-06-[address] Harish Luis Work Phone: [facility] Work Phone: Start: 07-06-2022 End: 07-06-[address] Harish Luis Work Phone: [facility] Start: 06-28-2022 End: 06-28-[address] Harish Luis Work Phone: [facility]-Pulmonary Services/Neurology Start: 04-27-2022 End: 04-27-2022 Admission to same day surgery center Dr. Harish Luis Work Phone: [facility] Day Care Start: 04-24-2022 End: 04-24-2022 Non-patient / Non-visit Dr. Harish Luis Work Phone: [facility] Start: 04-10-2022 End: 04-10-2022 ambulatory [facility] Work Phone: Start: 04-10-2022 End: 04-10-2022 Patient encounter procedure [facility]/Neurology Start: 03-31-2022 End: 03-31-2022 ambulatory [facility] Work Phone: Start: 03-31-2022 End: 03-31-2022 Patient encounter procedure [facility] Services/Neurology Start: 12-28-2021 End: 12-28-2021 ambulatory [facility] Work Phone: Start: 12-28-2021 End: 12-28-2021 Patient encounter procedure [facility]-Laboratory, y Office 3rd Flr Start: 12-01-2021 End: 12-01-2021 ambulatory [facility] Work Phone: Start: 12-01-2021 End: 12-01-2021 Patient encounter procedure [facility]Pulmonary Services/Neurology Start: 06-27-2021 End: 06-27-2021 Patient encounter procedure [facility]Labor[facility], [facility] Office 3rd Flr Procedures Date Procedure Procedure Detail Performing Clinician Start: 09-21-2024 X-ray of chest, PA and lateral views Dr. Harish Luis MD Work Phone: Start: 09-21-2024 Urnls dip stick/tablet reagent auto microscopy Dr. Harish Luis MD Work Phone: Start: 09-21-2024 CT of head without contrast Dr. Harish Luis MD Work Phone: Start: 09-21-[address] Harish sanderson MD Work Phone: Start: 09-21-2024 SARS-CoV-2, Influenza & RSV (PCR) Dr. Levar Luis MD Work Phone: Start: 08-29-[address] Harish sanderson MD Work Phone: Start: 08-28-2024 Serum inorganic phosphate measurement Dr. Harish Luis MD Work Phone: Start: 08-27-2024 Urnls dip stick/tablet reagent auto microscopy Dr. Harish Luis MD Work Phone: Start: 08-27-[address] Harish sanderson MD Work Phone: Start: 08-27-2024 Plain chest X-ray Dr. Harish Luis MD Work Phone: Start: 08-27-[address] Harish Luis MD Work Phone: Start: 08-27-2024 Legionella pneumophila antigen assay Dr. Harish Luis MD Work Phone: Start: 08-27-2024 End: 08-27-2024 Streptococcus pneumoniae antigen assay Dr. Harish Luis MD Work Phone: Start: 08-27-[address] Harish Luis MD Work [...] Treatment Date Care Activity Detail Author Start: 09-21-2024 Electrocardiographic procedure [facility] Start: 09-21-2024 Thyroid stimulating hormone measurement [facility] Start: 09-21-2024 Verification routine [facility] Start: 09-21-2024 Admission procedure [facility] Start: 09-21-2024 Hospital admission, emergency, from emergency room, medical nature [facility] Start: 09-21-2024 CT of chest without contrast Chest without Contrast [facility] Start: 09-21-2024 End: 09-21-2024 [facility] Start: 09-21-2024 Consultation [facility] Start: 09-21-2024 Bacteria identified in Blood by Culture Blood Culture [facility] Start: 08-29-2024 Patient discharge [facility] Start: 08-28-2024 Referral to gastroenterology service [facility] Start: 08-27-2024 Following clinical pathway protocol [facility] Start: 08-27-2024 Ambulation without limitation [facility] Start: 08-27-2024 Assessment of risk of venous thromboembolism [facility] Start: 08-27-2024 Insertion of catheter into peripheral vein [facility] Start: 08-27-2024 Oxygen therapy [facility] Start: 08-27-2024 Providing care according to standard [facility] Start: 08-27-2024 Referral to occupational therapist [facility] Start: 08-27-2024 Referral to service [facility] Start: 08-27-2024 Speech therapy assessment [facility] Start: 08-27-2024 Streptococcus pneumoniae antigen assay [facility] Start: 08-27-2024 Hospital admission, emergency, from emergency room, medical nature [facility] Start: 08-27-2024 Verification routine [facility] Start: 08-27-2024 Admission procedure [facility] Start: 08-27-2024 End: 08-27-2024 [facility] Start: 08-27-2024 Bacteria identified in Blood by Culture Blood Culture [facility] Start: 08-27-2024 Bacteria identified in Urine by Culture Urine Culture [facility] Start: 08-27-2024 Urine culture [facility] Start: 06-04-2024 [facility] Start: 07-30-2023 Verification routine [facility] Start: 07-30-2023 Legionella pneumophila Ag [Presence] in Urine [facility] Start: 07-30-2023 Respiratory pathogens DNA and RNA panel - Respiratory specimen by ANTIONE with probe detection [facility] Start: 07-30-2023 Streptococcus pneumoniae antigen assay [facility] Start: 07-30-2023 [facility] Start: 07-30-2023 Admission procedure [facility] Start: 07-30-2023 Hospital admission, emergency, from emergency room, medical nature [facility] Start: 07-30-2023 Gas panel - Venous blood [facility] Start: 07-30-2023 [facility] Start: 07-24-2023 [facility] Start: 03-17-2023 [facility] Start: 11-04-2022 Patient discharge [facility] Start: 11-03-2022 Consultation [facility] Start: 11-03-2022 Care planning and problem solving actions [facility] Start: 11-02-2022 Catheterization of vein [facility] Start: 11-02-2022 Referral to gastroenterology service [facility] Start: 11-01-2022 Following clinical pathway protocol [facility] Start: 11-01-2022 Assessment of risk of venous thromboembolism [facility] Start: 11-01-2022 Catheterization of vein [facility] Start: 11-01-2022 Insertion of catheter into peripheral vein [facility] Start: 11-01-2022 Measuring intake and output [facility] Start: 11-01-2022 Providing care according to standard [facility] Start: 11-01-2022 Provision of activity privileges [facility] Start: 11-01-2022 Referral to occupational therapist [facility] Start: 11-01-2022 Referral to service [facility] Start: 11-01-2022 Speech therapy assessment [facility] Start: 11-01-2022 Tobacco use cessation education [facility] Start: 11-01-2022 [facility] Start: 11-01-2022 Admission procedure [facility] Start: 11-01-2022 Referral to service [facility] Start: 11-01-2022 Inhalation therapy procedure [facility] Start: 11-01-2022 Patient referral to dietitian [facility] Start: 10-14-2022 Patient discharge [facility] Start: 10-14-2022 Urinary bladder residual urine study [facility] Start: 10-14-2022 Removal of urinary catheter [facility] Start: 10-14-2022 Removal of urinary catheter [facility] Start: 10-14-2022 Vitamin B12 measurement [facility] Start: 10-14-2022 Vitamin D, 25-hydroxy measurement [facility] Start: 10-13-2022 Following clinical pathway protocol [facility] Start: 10-13-2022 Ambulation without limitation [facility] Start: 10-13-2022 Assessment of risk of venous thromboembolism [facility] Start: 10-13-2022 Incentive spirometry [facility] Start: 10-13-2022 Insertion of catheter into peripheral vein [facility] Start: 10-13-2022 Measuring intake and output [facility] Start: 10-13-2022 Oxygen therapy [facility] Start: 10-13-2022 Providing care according to standard [facility] Start: 10-13-2022 Provision of activity privileges [facility] Start: 10-13-2022 Referral to occupational therapist [facility] Start: 10-13-2022 Referral to service [facility] Start: 10-13-2022 [facility] Start: 10-13-2022 Verification routine [facility] Start: 10-13-2022 Referral to general surgeon [facility] Start: 10-13-2022 Admission procedure [facility] Start: 10-13-2022 End: 10-13-2022 [facility] Start: 08-03-2022 Patient discharge [facility] Start: 08-02-2022 End: 08-03-2022 [facility] Start: 08-02-2022 Cardiac monitoring [facility] Start: 08-02-2022 Catheterization of vein [facility] Start: 08-02-2022 Continuous pulse oximetry [facility] Start: 08-02-2022 Elevation of head of bed [facility] Start: 08-02-2022 Exercises [facility] Start: 08-02-2022 Implementation of planned interventions [facility] Start: 08-02-2022 Notification of physician [facility] Start: 08-02-2022 Tobacco use cessation education [facility] Start: 08-01-2022 Catheterization of vein [facility] Start: 08-01-2022 Referral to gastroenterology service [facility] Start: 07-31-2022 Physiotherapy of chest [facility] Start: 07-30-2022 Chest 1 View (Portable) Chest 1 View (Portable) [facility] Start: 07-30-2022 XR Chest Single view [facility] Start: 07-29-2022 Speech therapy assessment [facility] Start: 07-29-2022 Introduction of urinary catheter [facility] Start: 07-29-2022 Urinary bladder residual urine study [facility] Start: 07-29-2022 Following clinical pathway protocol [facility] Start: 07-29-2022 Ambulation without limitation [facility] Start: 07-29-2022 Assessment of risk of venous thromboembolism [facility] Start: 07-29-2022 Catheterization of vein [facility] Start: 07-29-2022 Inhalation therapy procedure [facility] Start: 07-29-2022 Insertion of catheter into peripheral vein [facility] Start: 07-29-2022 Measuring intake and output [facility] Start: 07-29-2022 Oxygen therapy [facility] Start: 07-29-2022 Providing care according to standard [facility] Start: 07-29-2022 Referral to occupational therapist [facility] Start: 07-29-2022 Referral to service [facility] Start: 07-29-2022 Respiratory secretion precautions [facility] Start: 07-29-2022 Legionella pneumophila Ag [Presence] in Urine [facility] Start: 07-29-2022 Streptococcus pneumoniae antigen assay [facility] Start: 07-29-2022 Verification routine [facility] Start: 07-29-2022 Admission procedure [facility] Start: 07-29-2022 End: 07-29-2022 [facility] Start: 07-29-2022 Blood culture [facility] Start: 07-29-2022 End: 07-30-2022 [facility] Start: 07-29-2022 Patient referral to dietitian [facility] Start: 04-27-2022 Anes integ musc & nrv head neck&posterior trunk ANESTH HEAD/NECK/PTRUNK [facility] Start: 04-27-2022 Revj/rmvl implanted spinal neurostim generator REVISE/REMOVE NEURORECEIVER [facility] Start: 04-27-2022 Patient discharge [facility] Amphetamines [Presen ce] in Urine by Screen method >1000 ng/mL [facility] Bacteria identified in Blood by Culture Blood Culture [facility] Benzodiazepine measu rement, urine [facility] Cocaine measurement, urine [facility] Ethanol [Mass/volume ] in Serum or Plasma [facility] fentaNYL [Presence] in Urine by Screen method [facility] Folate [Moles/volume ] in Serum or Plasma [facility] Hemoglobin A1c/Hemoglobin.total in Blood [facility] Influenza virus type s A and B and subtypes panel - Respiratory specimen [facility] Lactic acid measurement [facility] Legionella pneumophi la Ag [Presence] in Urine [facility] Magnesium [Mass/volu me] in Serum or Plasma [facility] Magnesium measurement [facility] Methadone measurement, urine [facility] Patient Education [facility] Work Phone: Patient referral [facility] Work Phone: Phencyclidine [Prese nce] in Urine [facility] Procalcitonin [Mass/ volume] in Serum or Plasma [facility] Urine cannabinoid measurement [facility] Urine opiate measurement [facility] Vitamin B12 measurement [facility] Vitamin D, 25-hydrox y measurement [facility] Immunizations Immunization Date Immunization Notes Care Provider Fa pabloty 11-16-2023 influenza, injectabl e, quadrivalent, preservative free Dr. Harish Luis MD Work Phone: [facility] 06-27-2021 Covid (Moderna) Dr. Harish Luis Work Phone: [facility] 03-14-2021 Covid (Hansel & Hansel) Dr. Harish Luis Work Phone: [facility] 12-27-2020 influenza, injectabl e, quadrivalent, preservative free Dr. Harish Luis Work Phone: [facility] 12-27-2020 influenza, seasonal, injectable Dr. Harish Luis Work Phone: [facility] 05-27-2020 Covid (Hansel & Hansel) Dr. Harish Luis Work Phone: [facility] 01-20-[address] Harish Luis Work Phone: [facility] 12-29-2019 influenza, injectabl e, quadrivalent, preservative free Dr. Harish Luis Work Phone: [facility] 12-29-2019 influenza, seasonal, injectable Dr. Harish Luis Work Phone: [facility] 11-13-[address] Harish Luis Work Phone: [facility] 04-07-2019 influenza, injectabl e, quadrivalent, preservative free Dr. Harish Luis Work Phone: [facility] 04-07-2019 influenza, seasonal, injectable Dr. Harish Luis Work Phone: [facility] 12-17-2017 influenza, injectabl e, quadrivalent, preservative free Dr. Harish Luis Work Phone: [facility] 12-17-2017 influenza, seasonal, injectable Dr. Harish Luis Work Phone: [facility] 11-29-2016 influenza, injectabl e, quadrivalent, preservative free Dr. Harish Luis Work Phone: [facility] 11-29-2016 influenza, seasonal, injectable Dr. Harish Luis Work Phone: [facility] Payers Date Payer Category Payer Self-pay [id number] 2016 Medicare [id number] Unknown [id number] 2.16.8 [id number] Unknown [id number] 2.16.8 [id number] Unknown [id number] 2.16.8 [id number] Unknown [id number] 2.16.8 [id number] Unknown [id number] 2.16.8 [id number] Unknown [id number] 2.16.8 [id number] Unknown [id number] 2.16.8 [id number] Unknown [id number] 2.16.8 [id number] Unknown [id number] 2.16.8 [id number] Unknown [id number] 2.16.8 40.1.695025.3.579.2.462 Unknown [id number] 2.16.8 [id number] Unknown [id number] 2.16.8 [id number] Unknown [id number] 2.16.8 [id number] Unknown [id number] 2.16.8 [id number] Unknown [id number] 2.16.8 [id number] Unknown [id number] 2.16.8 [id number] Unknown [id number] 2.16.8 [id number] Unknown [id number] 2.16.8 [id number] Unknown [id number] 2.16.8 [id number] Social History Date Type Detail Facility Start: 02-17-2020 End: 07-30-2023 Tobacco smoking status NHIS Unknown if ever smoked [facility] Start: 02-17-2020 None [facility] Start: 02-17-2020 Spouse/ Signif icant Other [facility] Start: 02-17-2020 Vapor [facility] Start: 1950 Sex Assigned At Female [facility] Start: 06-04-2024 End: 09-21-2024 Tobacco smoking status NHIS Smokes tobacco daily (finding) [facility] Start: 06-04-2024 Sex Female (finding) [facility] NEGATED: Highlighted row [facility] Medical Equipment Procedure Code Equipment [...] OM EXPLANT OF NEVRO STIMULATOR FDA Start: 02-09-2023 ABANDON LEADS FR OM EXPLANT OF NEVRO [...] Assessment Result Facility 08-29-2024 Functional status Ambulates [facility] Work Phone: 11-04-2022 Functional status Ambulates [facility] Work Phone: 10-14-2022 Functional status Ambulates [facility] Work Phone: 08-03-2022 Functional status Ambulates;Chair [facility] Work Phone: Mental Status Date Assessment Result Facility 09-21-2024 Cognitive function Level Of Cons ciousness Awake;Alert;Appropriate;Follow s Commands [facility] Work Phone: 08-29-2024 Cognitive function Voice/Name [facility] Work Phone: 08-27-2024 Cognitive function Voice/Name [facility] Work Phone: 07-30-2023 Cognitive function Awake;Lethargic [facility] Work Phone: 11-04-2022 Cognitive function Voice/Name [facility] Work Phone: 11-01-2022 Cognitive function Level Of Cons ciousness Awake;Follows Commands;Disoriented [facility] Work Phone: 10-13-2022 Cognitive function Appropriate;Cooperativ [facility] Work Phone: 10-13-2022 Cognitive function Arousable To Voice/Nam e [facility] Work Phone: 10-13-2022 Cognitive function Level Of Cons ciousness Awake;Alert;Appropriate;Follow s Commands [facility] Work Phone: 08-03-2022 Cognitive function Appropriate;Cooperativ [facility] Work Phone: 08-03-2022 Cognitive function Voice/Name [facility] Work Phone: 04-27-2022 Cognitive function Voice/Name [facility] Work Phone: Clinical Notes 10-13-2022 to 09-21-2024 Note Date & Type Note Facility 09-21-2024 Radiology Diagnostic study note [facility] Imaging Services [address], [place] [address] Chest PA and Lateral MR#: [id number] Acct: [id number] Name: CAROL ZARAGOZA Rep #: [id number] : 1950 F 74 From: Pet er Peer DO PCP: Dr. Harish Luis MD Status: REG E R Study:Chest PA and Lateral Date of Exam: 09/21/24 Exam# [id number] Ordering Dr: Hilda Collins MD PROCEDURE: CHEST PA AND LATERAL 09/21/2024 REASON FOR EXAM: FEVER AND WEAKNESS TECHNIQUE: CHEST PA AND LATERAL COMPARISON: August 27, 2024 chest radiograph FINDINGS: Hardware: EKG leads wires. Spinal canal pain electrodes in the posterior midline Heart: Normal size. Mediastinum: Prominent renea suggest residual from previous lymphadenopathy Lungs: Platelike atelectasis versus chronic fibrosis in the left base has similar appearance compared to August 27 Bilateral hilar and basilar infiltrates appear improved. Bones: No acute process. Slight improvement in bibasilar and bilateral hilar infiltrates since the prior CT exam RAD/Chest PA and Lateral IMPRESSION: Improvement in bilateral hilar and basilar infiltrates Reading Location[facility] CC: Dr. Guilherme Collins MD; Dr. Harish Luis MD ~ [employer] Winding Operator: Signed [facility] 09-21-2024 Radiology Diagnostic study note [facility] Imaging Services [address] [place] [address] Brain/Head without Contrast MR#: [id number] Acct: [id number] Name: CAROL ZARAGOZA Rep #: [id number] : 1950 F 74 From: Maria Victoria Rosario MD PCP: Dr. Harish Luis MD Status: REG E R Study:Brain/Head without Contrast Date of Exa m: 09/21/24 Exam# [id number] Ordering Dr: Hilda Collins MD PROCEDURE: BRAIN/HEAD WITHOUT CONTRAST 09/21/2024 REASON FOR EXAM: FALLS AND CONFUSION TECHNIQUE: BRAIN/HEAD WITHOUT CONTRAST Coronal and Sagittal reconstruction series were provided. One or more dose reduction techniques were used (e.g., Automated exposure control, adjustment of the mA and/or kV according to patient size, use of iterative reconstruction technique. RADIATION DOSE SUMMARY: CTDlvol: 44.99 mGy DLP: 812.98 mGycm COMPARISON: 07/15/2024 FINDINGS: No intracranial mass or hemorrhage. No edema. No hydrocephalus. Normal moy-white differentiation. CT/Brain/Head without Contrast IMPRESSION: No acute abnormality Reading Location: [facility] CC: Dr. Guilherme Collins MD; Dr. Harish Luis MD ~ [employer] Winding Operator: Signed [facility] 08-29-2024 Discharge summary [facility] 08-29-2024 Note [facility] Medical Records Department [address] [place] [address] Discharge Summary 08/29/24 1250 MR#: [id number] Acct: [id number] Name: CAROL ZARAGOZA Rep #: [id number] : 1950 74 From: Christofer Kenzie PLEITEZ PCP: Dr. Harish Luis MD Status:DIS IN Location: [place] [address] Providers Date of Admission: 08/27/24 Date of Discharge: 08/29/24 Primary Care Physician: Dr. Harish Luis MD Consultations 08/28/24 12:58 Consult: Gastroenterology Routine Consulting Provider: [facility] Reason for Consult: dysphagia, eval for [...] Patient is a 74-year-old female who presented [facility] ED on 08/27/2024 with fevers, cough and confusion. Hospital course as noted below. Patient discharged home in stable condition on 08/29. 1. Suspected aspiration pneumonia ??? Speech therapy followed. [...] patient's medical is (more content not included)... [facility] 08-28-2024 Progress note Note Date/Time August 28, 2024 1:06pm [facility] Medical Records Department [address] [place] [address] Progress Note - Hospitalist 08/28/24 1113 MR#: [id number] Acct: [id number] Name: CAROL ZARAGOZA Rep #:[id number] : 1950 74 From: Christofer ashby DO PCP: Dr. Harish Luis MD Status:ADM I N Location: [place] [address] Reason for Visit Reason for Visit: Diagnoses [...] 86.9 H, Lymph % (Auto) 7.0 L, Vilas % (Auto) 5.1, Eos % (Auto) 0.2, [...] Sl Cldy, Urine pH 6.0, Ur Specific Westhoff 1.015, Urine Protein 30 H, Urine Glucose [...] lower lobe. Otherwise grossly unchanged Reading Location: [facility] Physical Exam Const alert and no [...] Patient is a 74-year-old female who presented [facility] ED on 08/27/2024 with fevers, [...] 35 minutes. Charges/Coding Visit Charges Inpatient E&M: 78348 Subs Hosp L2 08/28/24 1308 <Electronically signed by Christofer Espino DO> Cosigner Signature (if applicable): CC: ~ Signed [facility] Work Phone: 1(483) 552-628806-12-2025 Progress note [facility] Medical Records Department [address] [place] [address] Progress Note - Hospitalist 08/28/24 1113 MR#: [id number] Acct: [id number] Name: CAROL ZARAGOZA Rep #:[id number] : 1950 74 From: Christofer ashby DO PCP: Dr. Harish Luis MD Status:ADM I N Location: [place] [address] Reason for Visit Reason for Visit: Diagnoses [...] 86.9 H, Lymph % (Auto) 7.0 L, Vilas % (Auto) 5.1, Eos % (Auto) 0.2, [...] Sl Cldy, Urine pH 6.0, Ur Specific Westhoff 1.015,Urine Protein 30 H, Urine Glucose (UA) [...] 278, MPV 9.8, Sodium 140, Potassium 3.3, Ldrchmlp970 H, Carbon Dioxide 20.4 L, Anion Gap11, [...] lower lobe. Otherwise grossly unchanged Reading Location: [facility] Physical Exam Const alert and no [...] Patient is a 74-year-old female who presented [facility] ED on 08/27/2024 with fevers, [...] 35 minutes. Charges/Coding Visit Charges Inpatient E&M: 96758 Subs Hosp L2 08/28/24 1306 Cosigner Signature (if applicable): CC: ~ Signed [facility]06-12-2025 History and physical note Author Christofer Espino [facility] Note Date/Time August 28, 2024 7:53 am [facility] Medical Records Department [address] [place] [address] H&P Exam - Hospitalist 08/27/24 1716 MR#: [id number] Acct: [id number] Name: CAROL ZARAGOZA Rep #:[id number] : 1950 74 From: Christofer ashby DO PCP: Dr. Harish Luis MD Status:ADM I N Location: [address] 1 HPI - General General Date of Admission: 08/27/24 Date of Service: 08/27/24 Chief Complaint: Fever and cough with confusion HPI Narrative CAROL ZARAGOZA, is a 74 F who presented to [facility] ED on 08/27/2024 with fevers, [...] quickly then and was able [facility] without GI evaluation. On [...] to tell me that she was at [facility] and that the year was [...] past. Will be admitted for further management. [facility] Medical History (Updated 08/28/24 @ 07:52 by [...] 86.9 H, Lymph % (Auto) 7.0 L, Vilas % (Auto) 5.1, Eos % (Auto) 0.2, [...] Sl Cldy, Urine pH 6.0, Ur Specific Westhoff 1.015, Urine Protein 30 H, Urine Glucose (UA) Normal, Urine Ketones Negative, Urine Occult Blood Negative, Urine Nitrite Negative, Urine Bilirubin Negative, Urine Urobilinogen Normal, Ur Leukocyte Esterase Negative Assessment & Plan Assessment/Plan (1) Encephalopathy due to infection: (2) Aspiration pneumonia: PLAN: Plan Patient is a 74-year-old female who presented [facility] ED on 08/27/2024 with fevers, [...] 75 minutes. Charges/Coding Visit Charges Inpatient E&M: 86903 Init Hosp L3 08/28/24 0753 <Electronically signed by Christofer Espino DO> Cosigner Signature (if applicable): CC: Dr. Christofer Espino DO; Dr. Harish Luis MD~ Signed [facility] Work Phone: 1(638) 324-817306-12-2025 History and physical note [facility] Medical Records Department [address] [place] [address] H&P Exam - Hospitalist 08/27/24 1712 MR#: [id number] Acct: [id number] Name: CAROL ZARAGOZA Rep #:[id number] : 1950 74 From: Christofer ashby DO PCP: Dr. Harish Chi Toby, MD Status:ADM I N Location: [facility] [id number]- 1 HPI - General General Date of Admission: 08/27/24 Date of Service: 08/27/24 Chief Complaint: Fever and cough with confusion HPI Narrative CAROL ZARAGOZA, is a 74 F who presented to [facility] ED on 08/27/2024 with fevers, [...] quickly then and was able to [facility] without GI evaluation. On [...] to tell me that she was at [facility] and that the year was [...] past. Will be admitted for further management. [facility] Medical History (Updated 08/28/24 @ 07:[address] Christofer Espino, ) Aspiration pneumonia Hypoxia Fracture of humeral head [...] 86.9 H, Lymph % (Auto) 7.0 L, Vilas % (Auto) 5.1, Eos % (Auto) 0.2, [...] Sl Cldy, Urine pH 6.0, Ur Specific Westhoff 1.015,Urine Protein 30 H, Urine Glucose (UA) Normal, Urine Ketones Negative, Urine Occult Blood Negative,Urine Nitrite Negative, Urine Bilirubin Negative, Urine Urobilinogen Normal, Ur Leukocyte Esterase Negative Assessment & Plan Assessment/Plan (1) Encephalopathy due to infection: (2) Aspiration pneumonia: PLAN: Plan Patient is a 74-year-old female who presented [facility] ED on 08/27/2024 with fevers, [...] 75 minutes. Charges/Coding Visit Charges Inpatient E&M: 74663 Init Hosp L3 08/28/24 0753 Cosigner Signature (if applicable): CC: Dr. Christofer Espino DO; Dr. Harish Luis MD~ Signed [facility]06-11-2025 Discharge summary Author Huber Ballard [facility] Note Date/Time August 27, 2024 6:51 pm [facility] Medical Records Department [address] [place] [address] Emergency Department Summary 08/27/24 MR#: [id number] Acct: [id number] Name: CAROL ZARAGOZA Rep #:[id number] : 1950 74 From: Huber Ballard MD PCP: Dr. Harish Luis MD Status:REG E R Location: ED ADDENDUM by Dr. Huber Ballard MD on 08/27/24 at 1851 Sinus tachycardia rate of 111. CA interval 144 ms cures duration 68 ms. QT duration 218 ms. [place] is normal. She has evidence of low [...] social history: Currently ambulating with a cane [facility] ED Constitutional Constitutional ED: Reports chills and [...] 86.9 H Lymph % (Auto) 7.0 L Vilas % (Auto) 5.1 Eos % (Auto) 0.2 [...] Sl Cldy Urine pH 6.0 Ur Specific Westhoff 1.015 Urine Protein 30 H Urine Glucose [...] lower lobe. Otherwise grossly unchanged Reading Location: [facility] Management Discussion w/another healthcare provider: Hospitalist [...] laboratories also and x-rays), Discussing w/Patient &/or Family/Filter Plant Supervisor, Discussing w/Consultants (Discussed with hospitalist), Arranging Admission or Transfer and - (Treatment for infectious cephalopathy/sepsis due to pneumonia) Discharge Plan Dx/Rx/DC Orders Clinical Impression: Sepsis, Encephalopathy due to infection, Left lower lobe pulmonary infiltrate Disposition Disposition: Acute Care Hospital [facility] What to do if you have Problems For any increased pain, shortness of breath, bleeding, nausea or vomiting, chestpain, or any unexpected problems, contact your Primary Care Provider. Call [facility] ([phone]) or report to the closest Emergency Room. Call 911 if necessary. 08/27/24 1724 <Electronically signed by Huber Ballard MD> Cosigner Signature (if applicable): CC: Dr. Harish Luis MD ~ Signed [facility] Work Phone: 1(585) 199-758806-11-2025 Evaluation note* Diagnosis Onset Date Resolution Status Admit Date Aspiration pneumonia acute August 27, 2024 5:13pm Encephalopathy due to infection acut e August 27, 2024 5:13pm [facility] Work Phone: 1([phone]) 418-928806-11-2025 Evaluation note* Diagnosis Onset Date Resolution Status Admit Date Aspiration pneumonia acute August 27, 2024 5:13pm Encephalopathy due to infection reso lved August 27, 2024 5:13pm Aspiration pneumonia acute September 21, 2024 8:21pm Confusion acute September 21, 2024 8:21pm Frequent falls acute September 21, 2024 8:21pm [facility] Work Phone: 1(365) 462-108706-11-2025 Discharge summary [facility] Medical Records Department [address] [place] [address] Emergency Department Summary 08/27/24 MR#: [id number] Acct: [id number] Name: CAROL ZARAGOZA Rep #:[id number] : 1950 74 From: Huber Ballard MD PCP: Dr. Harish Luis MD Status:REG E R Location: ED ADDENDUM by Dr. Huber Ballard MD on 08/27/24 at 1851 Sinus tachycardia rate of 111. CA interval 144 ms cures duration 68 ms. QT duration 218 ms. [place] isnormal. She has evidence of low voltage. [...] social history: Currently ambulating with a cane [facility] ED Constitutional Constitutional ED: Reports chills and [...] 86.9 H Lymph % (Auto) 7.0 L Vilas % (Auto) 5.1 Eos % (Auto) 0.2 [...] Sl Cldy Urine pH 6.0 Ur Specific Westhoff 1.015 Urine Protein 30 H Urine Glucose [...] lower lobe. Otherwise grossly unchanged Reading Location: [facility] Management Discussion w/another healthcare provider: Hospitalist [...] laboratories also and x-rays), Discussing w/Patient &/or Family/Filter Plant Supervisor, Discussing w/Consultants (Discussed with hospitalist), Arranging Admission or Transfer and - (Treatment for infectious cephalopathy/sepsis due to pneumonia) Discharge Plan Dx/Rx/DC Orders Clinical Impression: Sepsis, Encephalopathy due to infection, Left lower lobe pulmonary infiltrate Disposition Disposition: [facility] What to do if you have Problems For any increased pain, shortness of breath, bleeding, nausea or vomiting, chestpain, or any unexpected problems, contact your Primary Care Provider. Call [facility] ([phone]) or report tothe closest Emergency Room. Call 911 if necessary. 08/27/24 1724 Cosigner Signature (if applicable): CC: Dr. Harish Luis MD ~ Signed [facility]06-11-2025 Radiology Diagnostic study note [facility] Imaging Services [address] [place], [place] [address] Chest 1 View (Portable) MR#: [id number] Acct: [id number] Name: CAROL ZARAGOZA Rep #: [id number] : 1950 F 74 From: Kayla Ham MD PCP: Dr. Harish Luis MD Status: REG E R Study:Chest 1 View (Portable) Date of Exam: 08/27/24 Exam# [id number] Ordering Dr: Malcom Ballard MD PROCEDURE: CHEST [...] lower lobe. Otherwise grossly unchanged Reading Location: [id number] CC: Dr. Harish Luis MD; Dr. Huber Ballard MD ~ [employer] Winding Operator: Signed [facility]03-19-2025 Radiology Diagnostic study note [facility] Imaging Services [address] [place], [place] [id number] Shoulder min 2 Views MR#: [id number] Acct: [id number] Name: CAROL ZARAGOZA Rep #: [id number] : 1950 F 74 From: Robert Mancuso DO PCP: Dr. Harish Luis MD Status: REG E R Study:Shoulder min 2 Views Date of Exam: 06/04/24 Exam# [id number] Ordering Dr: Mat White DO PROCEDURE: Right [...] White DO; Dr. Harish Luis MD ~ [employer] Winding Operator: Signed [facility]10-18-2024 [facility] Medical Records Department [address] [place] [address] Discharge Summary 01/04/24 1433 MR#: [id number] Acct: [id number] Name: CAROL ZARAGOZA Rep #: [id number] : 1950 73 From: Rafita Siddiqui DO PCP: Dr. Harish Luis MD Status:DIS IN Location: U [id number] Providers Date of Admission: 01/03/24 Date of [...] was seen in the emergency room at [facility] due to confusion and generalized [...] Clarity Cloudy, Urine pH 7.0, Ur Specific Westhoff 1.010, U rine Protein 15 H, Urine [...] Plt Count 314, MP (more content not included)...[facility]08-16-2023 Discharge summary Author Armando Miranda [facility] November 01, 2022 11:03am Note Date/Time November 01, 2022 7: 51am [facility] Medical Records Department [address] [place] [address] Emergency Department Summary 11/01/22 MR#: [id number] Acct: [id number] Name: CAROL ZARAGOZA Rep #:[id number] : 1950 72 From: Armando Santamaria PCP: Dr. Harish Luis MD Status:ADM I N Location: [place] [address] HPI History of Present Illness Chief Complaint: Weakness PFSH [facility] Medical History Allergic rhinitis Ambulates with [...] bisacodyl 10 mg rectal suppository 10 mg CA DAILY PRN Constipation 30 days #0 ea10/14/22 [...] Oxygen Delivery Method Room Air Room Air [facility] Narrative Medical decision making narrative: HISTORY OF [...] (Auto) 44.7 L Lymph % (Auto) 38.1 Vilas % (Auto) 10.0 Eos % (Auto) 5.0 [...] your Primary Care Provider. Call [facility] ([phone]) or report to the closest Emergency Room. Call 911 if necessary. 11/01/22 1103 <Electronically signed by Armando Miranda DO> Cosigner Signature (if applicable): CC: Dr. Harish Luis MD ~ Signed [facility] Work Phone: 1([phone]) 413-265907-29-2023 Discharge summary Author Zia Kalpesh [facility] October 14, 2022 8:34am Note Date/Time October 14, 2022 8:25 am [facility] Medical Records Department [address] [place] [address] Instructions for Home/Discharge Instructions 10/14/22 0824 MR#: [id number] Acct: [id number] Name: CAROL ZARAGOZA Ebonie Rep #:[id number] : 1950 72 From: Zia Rivero PCP: [...] and then as needed for constipation Available awuy-zxv-uomvpcz. bisacodyl 10 mg Suppository 10 mg CA DAILY PRN (Reason: Constipation) 30 Days Qty: 0 0RF Rx Instructions: Yvhd-stq-jlcjdlq. polyethylene glycol 3350 [Miralax] 17 gram/dose powder [...] MD; Dr. Nallely Mccann MD ~ Signed [facility] Work Phone: [phone]) 774-106907-29-2023 Progress note Author Nallely Mccann [facility] October 14, 2022 8:22am Note Date/Time October 14, 2022 8:22 am [facility] Medical Records Department [address] [place] [address] Progress Note - Surgery 10/14/22819 MR#: [id number] Acct: [id number] Name: CAROL ZARAGOZA Rep #:[id number] : 1950 72 From: Nallely Mccann MD PCP: Dr. Harish Luis MD Status:ADM I N Location: [place]3 UE591-3 Subjective Subjective Per patient and nursing she [...] Sl. Cloudy, Urine pH 6.0, Ur Specific Westhoff 1.015, Urine Protein Negative, Urine Glucose (UA) [...] 78.3 H, Lymph % (Auto) 12.0 L, Vilas % (Auto) 9.2, Eos % (Auto) 0.0, [...] Neut % (Auto) 62.2, Lymph % (Auto) 27.8,Vilas % (Auto) 8.4, Eos % (Auto) 0.9, [...] retention-management per hospitalist. Nallely Mccann M.D. Pager: [phone] [facility] [address] [place] [address], [address] [place] [id number] Office: [phone] Charges/Coding Visit Charges Inpatient E&M: 47657 Subs Hosp L2 10/14/22 0822 <Electronically signed by Nallely Mccann MD> Cosigner Signature (if applicable): CC: ~ Signed [facility] Work Phone: 1([phone]) 857-250407-29-2023 Consult note Author Nallely Mccann [facility] October 14, 2022 8:20am Note Date/Time October 13, 2022 1:53 pm [facility] Medical Records Department [address] [place] [address] Consultation - Surgical 10/13/22 1353 MR#: [id number] Acct: [id number] Name: CAROL ZARAGOZA Rep #:[id number] : 1950 72 From: Nallely Mccann MD PCP: Dr. Harish Luis MD Status:ADM I N Location: MS3 ZK607-2 Assessment & Plan Assessment/Plan (1) Abnormal CT [...] to urinary retention. Nallely Mccann M.D. Pager: [phone] [facility] [address] [place] [address], [facility], [address] [place] [id number] Office: [phone] HPI Consult Data Date of Consult: 10/14/22 [...] is currently getting a IV fluid bolus. [facility] Medical History Allergic rhinitis Ambulates with [...] Sl. Cloudy, Urine pH 6.0, Ur Specific Westhoff 1.015, Urine Protein Negative, Urine Glucose (UA) [...] 78.3 H, Lymph % (Auto) 12.0 L, Vilas % (Auto) 9.2, Eos % (Auto) 0.0, [...] 11:53 EDT Reading Location ID and State: [facility] / [place] , Service support , Charges/Coding Visit Charges Inpatient E&M: 14627 Init Hosp L3 10/14/22 0820 <Electronically signed by Nallely Mccann MD> Cosigner Signature (if applicable): CC: Dr. Harish Luis MD; Dr. Nallely Mccann MD~ Signed [facility] Work Phone: 1([phone]) 927-133007-29-2023 Discharge summary Author Sheyla Berlin [facility] October 13, 2022 10:21pm Note Date/Time October 13, 2022 11:2 1am [facility] Medical Records Department [address] [place] [address] Emergency Department Summary 10/13/22 MR#: [id number] Acct: [id number] Name: CAROL ZARAGOZA Ebonie Rep #:[id number] : 1950 72 From: Sheyla Santamaria PCP: Dr. Harish Luis MD Status:ADM I N Location: [place]3 KV006-6 HPI HPI - GI History of Present [...] time she also had [facility]agia. [facility] Medical History Allergic rhinitis Ambulates with [...] (Auto) Neut % (Auto) Lymph % (Auto) Vilas % (Auto) Eos % (Auto) Baso % [...] Sl. Cloudy Urine pH 6.0 Ur Specific Westhoff 1.015 Urine Protein Negative Urine Glucose (UA) [...] 78.3 H Lymph % (Auto) 12.0 L Vilas % (Auto) 9.2 Eos % (Auto) 0.0 [...] Color Urine Clarity Urine pH Ur Specific Westhoff Urine Protein Urine Glucose (UA) Urine Ketones [...] ofthe abdomen Disposition Disposition: Acute Care Hospital [facility] Discharge Date/Time: 10/13/22 15:24 What to do if you have Problems For any increased pain, shortness of breath, bleeding, nausea or vomiting, chestpain, or any unexpected problems, contact your Primary Care Provider. Call [facility] ([phone]) or report to the closest Emergency Room. Call 911 if necessary. 10/13/222220 <Electronically signed by Sheyla Slade DO> Cosigner Signature (if applicable): CC: Dr. Harish Luis MD ~ Signed [facility] Work Phone: 1(860) 397-717007-28-2023 History and physical note Author Zia Posey [facility] October 13, 2022 3:13pm Note Date/Time October 13, 2022 2:42 pm [facility] Medical Records Department [address] [place] [address] H&P Exam - Hospitalist 10/13/22 1440 MR#: [id number] Acct: [id number] Name: CAROL ZARAGOZA Rep #:[id number] : 1950 72 From: Zia Rivero PCP: Dr. Harish Luis MD Status:ADM I N Location: [place] [address]-1 HPI - General General Date of Admission: [...] in assessment plan. Patient is further admitted. [facility] Medical History Allergic rhinitis Ambulates with [...] Sl. Cloudy, Urine pH 6.0, Ur Specific Westhoff 1.015, Urine Protein Negative, Urine Glucose (UA) [...] 78.3 H, Lymph % (Auto) 12.0 L, Vilas % (Auto) 9.2, Eos % (Auto) 0.0, [...] [facility]. Started on IV fluid Ringer lactate. [...] no meaningful recovery Total time spent in ryff-pi-zeyq encounter in discussion of advanced directive 17 [...] Sl. Cloudy, Urine pH 6.0, Ur Specific Westhoff 1.015, Urine Protein Negative, Urine Glucose (UA) [...] 78.3 H, Lymph % (Auto) 12.0 L, Vilas % (Auto) 9.2, Eos % (Auto) 0.0, [...] 0.7 L Charges/Coding Visit Charges Inpatient E&M: 41991 Init Hosp L3 Procedures Hospitalists Procedures: 62891 Advncd Care Plan 30 Min 10/13/22 1513 <Electronically signed by Zia Posey MD> Cosigner Signature (if applicable): CC: Dr. Zia Posey MD; Dr. Harish Luis MD~ Signed [facility] Work Phone: Discharge summary Author Christofer Espino [facility] Note Date/Time August 29, 2024 12:5 2pm [facility] Medical Records Department [address] [place] [address] Instructions for Home/Discharge Instructions 08/29/24 1250 MR#: [id number] Acct: [id number] Name: CAROL ZARAGOZA Rep #:[id number] : 1950 74 From: Christofer ashby DO [...] CC: Dr. Harish Luis MD ~ Signed [facility] Work Phone: Evaluation noteNo assessment information available [facility] Work Phone: Evaluation note* Diagnosis Onset Date Resolution Status Pain from implanted hardware acute [facility] Work Phone: Evaluation note* Diagnosis Onset Date Resolution Status Pain from implanted hardware acute Hypoxemia acute Influenza acute Pneumonia acute Respiratory failure acute [facility] Work Phone: Evaluation note* Diagnosis Onset Date Resolution Status Facial droop acute Hypoxemia resolved Influenza resolved Pneumonia resolved Respiratory failure resolved Paralytic ileus of small intestine and colon acute [facility] Work Phone: Evaluation note* Diagnosis Onset Date Resolution Status Facial droop acute Hypoxemia resolved Influenza resolved Pneumonia resolved Respiratory failure resolved Abnormal CT of the abdomen a cute Paralytic ileus of small intestine and colon acute Urinary retention acute [facility] Work Phone: Evaluation note* Diagnosis Onset Date Resolution Status Facial droop acute Hypoxemia resolved Influenza resolved Pneumonia resolved Respiratory failure resolved Abnormal CT of the abdomen a cute Paralytic ileus of small intestine and colon resolved Urinary retention resolved Acute alteration in mental status acute Influenza B acute [facility] Work Phone: Evaluation note* Diagnosis Onset Date Resolution Status Paralytic ileus of small intestine and colon resolved Urinary retention resolved Abnormal TSH acute Toxic metabolic encephalopathy acute Debility resolved Generalized weakness resolve d Influenza B resolved [facility] Work Phone: Evaluation note* Diagnosis Onset Date Resolution Status Acute dehydration acute Acute hypotension acute Acute kidney injury acute Aspiration pneumonia acute Closed head injury acute Falls acute Fracture of humeral head acu te Hypoxia acute Pulmonary emboli acute [facility] Work Phone: History and physical note Author Zia Posey [facility] October 13, 2022 3:13pm Note Date/Time October 13, 2022 2:42 pm [facility] Medical Records Department [address] [place] [address] H&P Exam - Hospitalist 10/13/22 1440 MR#: [id number] Acct: [id number] Name: CAROL ZARAGOZA Rep #:[id number] : 1950 72 From: Zia Rivero PCP: Dr. Harish Luis MD Status:ADM I N Location: MS3 KM717-5 HPI - General General Date of Admission: 10/13/22 Date of Service: 10/13/22 Chief Complaint: Constipation for long time but acutely for last 2 days HPI Narrative CAROL ZARAGOAZ, estrella a 72 F was sent to [...] in assessment plan. Patient is further admitted. [facility] Medical History Allergic rhinitis Ambulates with [...] Sl. Cloudy, Urine pH 6.0, Ur Specific Westhoff 1.015, Urine Protein Negative, Urine Glucose (UA) [...] 78.3 H, Lymph % (Auto) 12.0 L, Vilas % (Auto) 9.2, Eos % (Auto) 0.0, [...] catheter in [facility]. Started on IV fluid Ringer lactate. [...] no meaningful recovery Total time spent in mpld-wm-tbov encounter in discussion of advanced directive 17 [...] Sl. Cloudy, Urine pH 6.0, Ur Specific Westhoff 1.015, Urine Protein Negative, Urine Glucose (UA) [...] 78.3 H, Lymph % (Auto) 12.0 L, Vilas % (Auto) 9.2, Eos % (Auto) 0.0, [...] 0.7 L Charges/Coding Visit Charges Inpatient E&M: 53651 Init Hosp L3 Procedures Hospitalists Procedures: 99929 Advncd Care Plan 30 Min 10/13/22 3173 <Electronically signed by Zia Posey MD> Cosigner Signature (if applicable): CC: Dr. Zia Posey MD; Dr. Harish Luis MD~ Signed [facility] Work Phone: Hospital Discharge instructions Additional Instructions I prescribed tramadol and prednisone which is a steroid to treat your chronic pain. You can continue taking Aleve. Please follow-up with your primary care doctor next week. [facility] Work Phone: Reason for referral (narrative)No reason for referral information availableW[facility] Work Phone: Family History Relationship [...] Will Yes February 16 3:26pm Power of Subsorter Yes February 17, 2020 3:26pm Advance Directive Response Recorded Date/ Time Advance Directives Yes January 21, 2015 4:23pm Living Will Yes February 16 2:26pm Power of Subsorter Yes February 17, 2020 2:26pm Advance Directive Response Recorded Date/ Time Name of Medical Power of Subsorter IRVING VILLALOBOSR April 20, 2022 11:20am Advance Directives Yes January 21, 2015 5:23pm Living Will Yes April 20 11:20am Power of Subsorter Yes April 20, 2022 11:20am Advance Directive Response Recorded Date/ Time Name of Medical Power of Subsorter IRVING VILLALOBOSR April 20, 2022 11:20am Name of Medical Power of Subsorter July 29, 2022 7:49am Advance Directives Yes January 21, 2015 5:23pm Living Will Yes July 29, 2022 7 :49am Power of Subsorter Yes July 29, 2022 7:49am Advance Directive Response Recorded Date/ Time Name of Medical Power of Subsorter July 29, 2022 10:09am Name of Medical Power of Subsorter Jose Lover October 13, 2022 10:25am Advance Directives Yes January 21, 2015 5:23pm Living Will Yes October 13, 2022 10:25am Power of Subsorter Yes October 13 10:25am Advance Directive Response Recorded Date/ Time Name of Medical Power of Subsorter July 29, 2022 10:09am Name of Medical Power of Subsorter Jose Lover October 13, 2022 3:38pm Advance Directives Yes January 21, 2015 5:23pm Living Will Yes October 13, 2022 3:38pm Power of Subsorter Yes October 13 3:38pm Advance Directive Response Recorded Date/ Time Name of Medical Power of Subsorter July 29, 2022 10:09am Name of Medical Power of Subsorter Jose Lover October 13, 2022 3:38pm Name of Medical Power of Subsorter November 01, 2022 7:48am Advance Directives Yes January 21, 2015 5:23pm Living Will Yes November 01 7:48am Power of Subsorter Yes November 01, 023 7:48am Advance Directive Response Recorded Date/ Time Name of Medical Power of Subsorter Jose Lover October 13, 2022 3:38pm Name of Medical Power of Subsorter November 01, 2022 7:48am Advance Directives Yes January 21, 2015 5:23pm Living Will No November 01 11:39am Power of Subsorter No November 01, 2 023 11:39am Advance Directive Response Recorded Date/ Time Advance Directives Yes January 21, 2015 4:23pm Living Will No March 17, 2 023 1:30pm Power of Subsorter No March 17, 2023 1:30pm Advance Directive Response Recorded Date/ Time Advance Directives Yes January 21, 2015 5:23pm Living Will No March 17, 2 023 2:30pm Power of Subsorter No March 17, 2023 2:30pm Advance Directive Response Recorded Date/ Time Advance Directives Yes January 21, 2015 5:23pm Living Will No July 24, 2023 8: 00pm Power of Subsorter No July 24, 2023 8:00pm Advance Directive Response Recorded Date/ Time Advance Directives Yes January 21, 2015 5:23pm Living Will No July 30, 2023 1 :46pm Power of Subsorter No July 30, 2023 1:46pm Advance Directive Response Recorded Date/ Time Living Will Yes June 04, 2024 3:44pm Do you have a Healthcare Pow er of Subsorter? Yes June 04, 2024 3:44pm Name of Medical Power of Subsorter Jose pantoja June 04, 2024 3:44pm Advance Directives Yes October 25 3:30pm Advance Directive Response Recorded Date/ Time Living Will Yes June 04, 2024 3:44pm Do you have a Healthcare Pow er of Subsorter? Yes June 04, 2024 3:44pm Name of Medical Power of Subsorter Jose pantoja June 04, 2024 3:44pm Do you have a Healthcare Pow er of Subsorter? No August 27, 2024 3:36pm Advance Directives Yes October 25 3:30pm Advance Directive Response Recorded Date/ Time Living Will Yes June 04, 2024 3:44pm Do you have a Healthcare Pow er of Subsorter? Yes June 04, 2024 3:44pm Name of Medical Power of Subsorter Jose pantoja June 04, 2024 3:44pm Do you have a Healthcare Pow er of Subsorter? Yes August 27, 2024 8:46pm Advance Directives Yes October 25 3:30pm Advance Directive Response Recorded Date/ Time Living Will Yes June 04, 2024 3:44pm Do you have a Healthcare Pow er of Subsorter? Yes June 04, 2024 3:44pm Name of Medical Power of Subsorter Jose pantoja June 04, 2024 3:44pm Do you have a Healthcare Pow er of Subsorter? No September 21, 2024 6:07pm Do you have a Healthcare Pow er of Subsorter? Yes August 27, 2024 8:46pm Advance Directives [...] 3pm Encephalopathy due to infection August 5:13pm Chief Complaint Admit Date FALL, R SHOULDER PAIN June 04, 2024 3 :08pm Unspecified injury of head, initial enco unter July 15, 2024 3:35pm CAP W/ENCEPHALOPATHY August 27, 2024 5:1 3pm CAP W/ENCEPHALOPATHY August 28, 2024 11: 13am CAP W/ENCEPHALOPATHY August 29, 2024 12: 50pm fall, weakness September 21, 2024 8:21p m Reason for Visit Admit Date Aspiration pneumonia August 27, 2024 5:1 3pm Encephalopathy due to infection August 5:13pm Aspiration pneumonia September 21, 2024 8:21 pm Confusion September 21, 2024 8:21p m Frequent falls September 21, 2024 8:21p m Summary Purpose Additional Source Comments Care Teams [...] Dates Dr. Harish Luis MD Primary Care Provcj [place], Attending Provider, Referring Provider Active Team Status: Active Member Role Status Dates Dr. Harish Luis MD Primary Care Provider Active Dr. Jose Renee MD Attending Provider Active Dr. Demond Manley DO Referring Provider Active Team Status: Inactive Member Role Status Dates Dr. Harish Luis MD Primary Care Provider Active Dr. Demond Manley DO Attending Provider, Referring Beckie whiting Active Team Status: Active Member Role Status [...] Provider, Other Provider Active Dr. Gurmeet Zarate , DO Attending [...] Other Provider Active Start: August 28, 2024 Team Status: Active Member Role/Relationship Status Dates Dr. Harish Luis MD Primary Care Provider Active Team Status: Inactive Member Role/Relationship Status Dates Dr. Harish Luis MD Primary Care Provider Active Start: June 04, 2024 End: June 04, 2024 Dr. Irving White DO Attending Provider Active Start: June 04, 2024 End: June 04, 2024 Dr. Irving White DO Emergency Provider Active Start: June 04, 2024 End: June 04, 2024 Team Status: Inactive Member Role/Relationship Status Dates Dr. Harish Luis MD Primary Care Provider Active Start: July 15, 2024 End: July 15, 2024 Dr. Harish Luis MD Attending Provider Active Start: July 15, 2024 End: July 15, 2024 Dr. Harish Luis MD Referring Provider Active Start: July 15, 2024 End: July 15, 2024 Team Status: Inactive Member Role/Relationship Status Dates Dr. Harish Luis MD Primary [...] August 27, 2024 Team Status: Active Member Role/Relationship Status Dates Dr. Harish Luis MD Primary Care Provider Active Start: August 28, 2024 Dr. Huber Ballard MD Emergency Provider Active Sta rt: August 28, 2024 Dr. Christofer Espino DO Admit Provider Active Start: August 28, 2024 Dr. Christofer Espino DO Attending Provider Active Start: August 28, 2024 Dr. Christofer Espino DO Other Provider Active Start: August 28, 2024 Team Status: Active Member Role/Relationship Status Dates Dr. Harish Luis MD Primary Care Provider Active Start: August 29, 2024 Dr. Huber Ballard MD Emergency Provider Active Sta rt: August 29, 2024 Dr. Christofer Espino DO Admit Provider Active Start: August 29, 2024 Dr. Christofer Espino DO Attending Provider Active Start: August 29, 2024 Dr. Christofer Espino DO Other Provider Active Start: August 29, 2024 Team Status: Active Member Role/Relationship Status Dates Dr. Harish Luis MD Primary Care Provider Active Start: September 21, 2024 Dr. Guilherme Collins MD Emergency Provider Active S tart: September 21, 2024 Dr. Ricardo Justice DO Admit Provider Active Start: September 21, 2024 Dr. Ricardo Justice DO Attending Provider Active Start: September 21, 2024 INFORMATION SOURCE (unrecogn ized section and content) DATE CREATED AUTHOR 09/12/2024 [facility] FOR RECORDS PERTAINING TO PATIENTS WHO [...] BE BASED ON THE PRIMARY CLINICAL RECORDS. [employer] provides no warranty or guarantee of the accuracy or completeness of information in this document.
[2024-09-21 21:02] LABS: Magnesium 1.9 mg/dL (1.5-2.2)
[2024-09-21 21:05] LABS: Barbiturate Urine NEGATIVE (< 200 ng/mL); Benzodiazepine Urine PRESUMPTIVE POSITIVE (< 200 ng/mL); PCP Urine NEGATIVE (< 25 ng/mL); THC Urine NEGATIVE (< 50 ng/mL)
[2024-09-21 21:10] LABS: Alcohol, Blood (Medical)-Serum < 10.1 mg/dL (<=10.0)
[2024-09-21 21:31] LABS: Vitamin B12 757 pg/mL (180-914)
[2024-09-21] MEDS: 0.9% Saline Lock 10 ML Syringe IV ×2 (22:26→23:27)
[2024-09-21] MEDS: metroNIDAZOLE 500 MG/100 ML BAG 100 MG IV (22:26)
[2024-09-21 22:31] LABS: FOLATES,SERUM (FOLIC ACID) 6.21 ng/mL (4.60-34.80)
[2024-09-21] MEDS: levoFLOXacin IV 750 MG/150 ML BAG 100 MG IV (23:26)
[2024-09-21] MEDS: Lactated Ringers 1,000 ML 125 ML IV (23:26)
[2024-09-22] VITALS (8 sets, daily range): BP systolic 121–195; BP diastolic 71–110; PULSE 66–103; RESP 14; TEMP 36.3–36.7; O2SAT 96–97; BMI 18.6
[2024-09-22] MEDS: DOXEPIN HCL 50 MG CAPSULE 150 MG PO (00:11)
[2024-09-22] MEDS: Lactobacillis Acidophilus 1 CAP PO ×3 (00:11→13:36)
[2024-09-22 04:35] LABS: Hematocrit 33.1 % (37-47); Hemoglobin 10.8 g/dL (12.0-15.0); Immature Granulocytes Count 0.020 X10^3/uL (0.0-0.0); Mean Corp Hgb Conc 32.6 g/dL (32-36); Mean Corpuscular Volume 95.9 fL (81-99); Mean Platelet Vol. 9.2 fl (6.2-12.0); NRBC Flagged by Analyzer 0 % (0-5); Platelet Count 319 K/mm3 (150-450); RBC Distribution Width CV 13.8 % (11.6-14.6); RBC Distribution Width SD 48.6 fl (35.1-43.9); Red Blood Count 3.45 M/mm3 (4.2-5.4); White Blood Count 5.5 K/mm3 (4.4-11.0)
[2024-09-22 04:37] LABS: SITE VENOUS; VBG BASE EXCESS 4 mmol/L (-1.0-3.5); VBG PO2 39 mmHg (25-40); VBG SO2 72 % (50-70); VBG TCO2 30 mmol/L (23-33)
[2024-09-22 04:47] LABS: D-Dimer Quantitative (DVT/PE) 0.32 FEU/ug/m (0.27-0.49)
[2024-09-22] MEDS: metroNIDAZOLE 500 MG/100 ML BAG 100 MG IV ×2 (05:12→13:32)
[2024-09-22 05:28] LABS: Cholesterol 217 mg/dL (<=200); Low Density Lipoprotein Calc. 132 mg/dL; Triglycerides 81 mg/dL; Very Low Density Lipoprotein 16 mg/dL (5-40); cholesterol:hdl ratio screen 3.16
[2024-09-22 06:05] LABS: AST(SGOT) 26 U/L (<=31); Alanine Aminotransfer ALT/SGPT 11 U/L (<=34); Albumin, Serum 2.9 g/dL (3.4-4.8); Alkaline Phosphatase 98 U/L (35-104); Anion Gap 8 (5-15); BUN 7 mg/dL (4-19); BUN/Creat Ratio 9.7 RATIO (10-20); Calcium,Total 8.5 mg/dL (7.6-11.0); Carbon Dioxide 23.5 mmol/L (21.0-32.0); Chloride 111 mmol/L (98-108); Estimated Creatinine Clearance 46.56 ml/min (50-250); Globulin 2.7 g/dL (2.2-4.2); Glucose 76 mg/dL (70-99); Potassium 3.7 mmol/L (3.3-5.1)
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
[2024-09-22] MEDS: Lactated Ringers 1,000 ML 125 ML IV (07:50)
[2024-09-22] MEDS: 0.9% Saline Lock 10 ML Syringe IV (09:55)
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
--- NOTE | 2024-09-22 15:04 | CT_ITS ---
PROCEDURE: BRAIN/HEAD WITHOUT CONTRAST 09/22/2024 REASON FOR EXAM: REPEAT CT HEAD, ASSURE NO CVA TECHNIQUE: BRAIN/HEAD WITHOUT CONTRAST Coronal and Sagittal reconstruction series were provided. One or more dose reduction techniques were used (e.g., Automated exposure control, adjustment of the mA and/or kV according to patient size, use of iterative reconstruction technique. RADIATION DOSE SUMMARY: DLP: 779 mGycm COMPARISON: 09/21/2024 FINDINGS: There is no acute infarct, intracranial hemorrhage, or mass effect. There is no hydrocephalus or significant midline shift. There is mild chronic microvascular ischemic changes and mild parenchymal volume loss. No acute, depressed calvarial fractures. No large scalp hematomas. CT/Brain/Head without Contrast IMPRESSION: No acute intracranial process. Consider MR if symptoms persist. Reading Location: [id number]
--- NOTE | 2024-09-22 15:30 | CASEMGMT ---
Social Work SW sent physician a text to let her know that a script for outpt PT/OT/AREA COUNSELOR on the front of the chart for her to sign in the event pt is discharged after SW/CM has left for the day. MASSIEL also called [facility], message left. NATALIIA Tafoya
--- NOTE | 2024-09-22 15:30 | CASEMGMT ---
OWENS Attempted to complete OWENS x2 (pt was sleeping then out of room for procedure). Will follow up if pt remains in hospital overnight. Nicole Lopez DC Planning Asst.
--- NOTE | 2024-09-22 17:37 | PCM.DC.SUM ---
Providers Date of Admission: 09/21/24 Date of Discharge: 09/22/24 Primary Care Physician: Dr. Harish Luis MD Reason For Visit: FREQUENT FALLS, CONFUSION & RECENT ASPIRATION Diagnosis Discharge Diagnosis (1) Aspiration pneumonia: Status: Acute Code(s): J69.0 - Pneumonitis due to inhalation of food and vomit Qualifiers: Aspiration pneumonia type: unspecified Laterality: left Lung location: lower lobe of lung Qualified Code(s): J69.0 - Pneumonitis due to inhalation of food and vomit Plan: DISCHARGE DIAGNOSES: #1. Acute Encephalopathy, suspected multifactorial, secondary to Acute Suspected Aspiration PNA (possible GN organisms) with known chronic oropharyngeal dysphagia in addition to Chronic BZD usage with persistent debility, mechanical falls #2. Anxiety and depression #3. Chronic back pain, debility with cervical stenosis, scoliosis of the spine #4. History of VTE #5. Chronic normocytic anemia #6. Tobacco use #7. GERD #8. CODE status: Patient SUNITA is her and living will is currently in place. Full Code status. Medications at Discharge Home Medications buspirone 7.5 mg tablet 7.5 mg PO BID ANXIETY 02/17/20 clonazepam 1 mg tablet 0.5 mg (1/2 x 1 mg) PO BID ANXIETY 14 days #14 tabs 09/22/24 doxepin 150 mg capsule 150 mg PO QHS ANXIETY 30 days #30 caps 09/22/24 levofloxacin 500 mg tablet 500 mg PO DAILY 5 days #5 tabs 09/22/24 metronidazole 500 mg tablet 500 mg PO Q8H 5 days #15 tabs 09/22/24 omeprazole 40 mg capsule,delayed release 40 mg PO DAILY 30 days #30 caps 09/22/24 Hospital Course Operations None Procedures None Summary of Care Provided Minutes Spent on Discharge: 35 Hospital Course: The patient is a 74 y/o F w/ PMHx: Anxiety and Depression, Chronic oropharyngeal dysphagia with frequent history of aspiration pneumonia, Chronic back pain, Chronic normocytic anemia, Hx VTE, GERD, Tobacco use who presented to the [facility] ED on 09/21/24 with history of recurrent confusion and falls. Admitted to PCU, maintained on aspiration precautions, started on empiric therapy with IV Levaquin and Flagyl given allergy history w/ aspiration concerns, initially NPO with ST evaluation with eventual clearance for regular diet/thin liquids with direct supervision one-to-one, presentation CT imaging with no acute findings and given unable to perform MRI brain secondary to leads present, thus be cautious repeat CT head obtained with again no acute findings. Mental status returned to baseline. Given heavily sedative medication patient doxepin decreased, temporarily held clonazepam and continue BuSpar. However given patient's significant regimen at discharge she was continued on half dose of the doxepin with recommended continued weaning per primary care physician in addition to wean at the least initial phase of aggressive clonazepam regimen with again close follow-up with primary care physician to further wean with continuation only of the scheduled BuSpar regimen. Strongly encouraged this wean and alteration of regimen as benzodiazepine and high dose doxepin likely contributing to heavy fall risk and aspiration potentially. Patient on 09/22/2024 despite strong recommendation to remain inpatient for continued evaluation and care was adamant about being discharged to home but was at least willing to remain for ST evaluation and repeat CT of the head. Given these recommendations are now in place and repeat CT head is negative will plan discharge to home with early close follow-up with primary care physician and continued outpatient ST evaluations and treatment with prescription given. Upon discharge transition to oral Levaquin and Flagyl for more anaerobic coverage for aspiration concerns with plan for an additional 5-day course. Again at discharge strongly encouraged the medication changes for decreasing sedation and weaning with continued close early follow-up with PCP. Patient clinically did improve quicker than expected and was mentating appropriately on 09/22/2024 however as noted did encourage her to remain but she was adamant about discharge. Weight / BMI Weight Weight: 105 lb 6.095 oz Body Mass Index (BMI) 18.6 ABG / Lab / Microbiology Data 09/22/24 04:26 09/22/24 04:26 Laboratory: Laboratory Results - last 24 hr 09/21/24 18:15: Sodium 140, Potassium 3.8, Chloride 105, Carbon Dioxide 24.7, Anion Gap 10, BUN 8, Creatinine 0.97, Estim Creat Clear Calc 40.24 L, Est GFR (MDRD) Non-Af 61, BUN/Creatinine Ratio 8.7 L, Glucose 118 H, Hemoglobin A1c 5.5, Calcium 9.0, Magnesium 1.9, Total Bilirubin 0.47, AST 30, ALT 11, Alkaline Phosphatase 113 H, Total Protein 6.4, Albumin 3.3 L, Globulin 3.1, Albumin/Globulin Ratio 1.1, Vitamin B12 757, TSH 0.358 09/21/24 18:36: WBC 8.0, RBC 3.64 L, Hgb 11.4 L, Hct 34.9 L, MCV 95.9, MCH 31.3, MCHC 32.7, RDW Std Deviation 48.4 H, RDW Coeff of Mehnaz 13.8, Plt Count 339, MPV 10.0, Immature Gran % (Auto) 0.200, Neut % (Auto) 79.3 H, Lymph % (Auto) 11.2 L, [place] % (Auto) 8.7, Eos % (Auto) 0.2, Baso % (Auto) 0.4, Absolute Neuts (auto) 6.4, Absolute Lymphs (auto) 0.90, Nucleated RBC % 0 09/21/24 18:50: Urine Color Yellow, Urine Clarity Clear, Urine pH 6.0, Ur Specific Arabi 1.015, Urine Protein 15 H, Urine Glucose (UA) Normal, Urine Ketones Negative, Urine Occult Blood Negative, Urine Nitrite Negative, Urine Bilirubin Negative, Urine Urobilinogen Normal, Ur Leukocyte Esterase 100 H, Urine RBC 0 SEEN, Urine WBC 0-5 SEEN, Ur Squamous Epith Cells 0 SEEN, Urine Bacteria 2+, Urine Mucus 0 SEEN, Urine Yeast 1+, Urine Opiates Screen NEGATIVE, U Buprenorphine Qual NEGATIVE, Ur Oxycodone Screen NEGATIVE, Urine Methadone Screen NEGATIVE, Urine Fentanyl Screen NEGATIVE, Ur Barbiturates Screen NEGATIVE, Ur Phencyclidine Scrn NEGATIVE, Ur Amphetamines Screen NEGATIVE, U Benzodiazepines Scrn PRESUMPTIVE POSITIVE, Urine Cocaine Screen NEGATIVE, U Cannabinoids Screen NEGATIVE 09/21/24 18:55: Lactic Acid 1.1 09/21/24 20:21: Ethyl Alcohol < 10.1 09/21/24 21:00: Serum Folate 6.21 09/22/24 04:26: WBC 5.5, RBC 3.45 L, Hgb 10.8 L, Hct 33.1 L, MCV 95.9, MCH 31.3, MCHC 32.6, RDW Std Deviation 48.6 H, RDW Coeff of Mehnaz 13.8, Plt Count 319, MPV 9.2, Immature Gran % (Auto) 0.400, Neut % (Auto) 61.9, Lymph % (Auto) 26.9, [place] % (Auto) 8.5, Eos % (Auto) 1.8, Baso % (Auto) 0.5, Absolute Neuts (auto) 3.4, Absolute Lymphs (auto) 1.48, Nucleated RBC % 0, D-Dimer Quant (PE/DVT) 0.32, Sodium 143, Potassium 3.7, Chloride 111 H, Carbon Dioxide 23.5, Anion Gap 8, BUN 7, Creatinine 0.74, Estim Creat Clear Calc 46.56 L, Est GFR (MDRD) Non-Af 86, BUN/Creatinine Ratio 9.7 L, Glucose 76, Calcium 8.5, Phosphorus 3.1, Total Bilirubin 0.46, AST 26, ALT 11, Alkaline Phosphatase 98, Total Protein 5.6 L, Albumin 2.9 L, Globulin 2.7, Albumin/Globulin Ratio 1.1, Triglycerides 81, Cholesterol 217 H, LDL Cholesterol, Calc 132, VLDL Cholesterol 16, HDL Cholesterol 69, Cholesterol/HDL Ratio 3.16 Microbiology: Microbiology 09/21/24 18:52 Mucosa - Nose SARS-CoV-2, Influenza & RSV (PCR) - Final ABG: ABG 09/22/24 04:33 Specimen Type PEYTON Sample Site VENOUS VBG pH 7.39 VBG pO2 39 VBG HCO3 29 H VBG Total CO2 30 VBG O2 Sat (Calc) 72 H VBG Base Excess 4 H POC Mix VBG pCO2 Pt Tmp 48.3 O2 Delivery Device Room Air Radiography Diagnostic Testing: Radiology Impression Brain CT 09/21/24 18:37 IMPRESSION: No acute abnormality Reading [facility] Chest X-Ray 09/21/24 19:18 IMPRESSION: Improvement in bilateral hilar and basilar infiltrates Reading [facility] 09/21/24 20:09 IMPRESSION: Residual consolidating airspace disease in the left lower lobe right lower lobe to lesser degree consistent with history of aspiration pneumonia. Coronary artery calcification (CAC) is difficult to visualize due to presence of metallic streak artifact suspected metallic heart stents. Correlate with cardiac history. Small hiatal hernia Thor[place] lumbar spine area anterior wedge compression fracture Reading Location: [facility] Brain CT 09/22/24 15:04 IMPRESSION: No acute intracranial process. Consider MR if symptoms persist. Reading Location: [facility] [address] D/C Instructions DC O2, CPAP, BIPAP Needs Home O2 Discharge instructions: No Meaningful Use Info Meaningful Use Meaningful Use Diagnoses (Choose all that apply): None applicable Ischemic Stroke Statin Dosing Therapy Reference: STATIN DOSE THERAPY REFERENCE: * Patients > 75 years receive moderate or high dose statin therapy. * Patients 75 years or YOUNGER should receive HIGH intensity statin dose unless contraindicated. You will be required to document reason for non-treatment if statin daily dose does not meet guidelines. HIGH DOSE STATIN THERAPY DAILY Atorvastatin > than or = to 40 mg Rosuvastatin > than or = to 20 mg Amlodipine + Atorvastatin > than or = to 2.5/40 mg Ezetimibe + Simvastatin 10/80 mg Simvastatin 80mg Discharge Plan Admission Admit Date/Time: 09/21/24 20:12 Primary Reason for Your Visit: Encephalopathy, Aspiration PNA Attending Provider: Anastasia Khan Primary Care Provider: Harish Luis Chi Consulting Providers: Ricardo Justice Instructions Patient Instructions: Dysphagia Aspiration, Dysphagia Aspiration Tx Additional Instructions / Restrictions: ADDITIONAL DISCHARGE INFORMATION/INSTRUCTIONS: #1. Acute Encephalopathy (CONFUSION), suspected multifactorial, secondary to Acute Suspected Aspiration Pneumonia with known chronic oropharyngeal dysphagia in addition to Chronic sedation medication (Doxepin, Buspar, Clonazepam all concurrently) usage with persistent debility, mechanical falls: -- Maintain initially on IV Levaquin and IV Flagyl while inpatient given allergy history, transition to oral regimen for an additional 5-day duration at discharge. --CT head upon admission with no acute findings and repeat CT head at approximately 24 hours unremarkable. --ST evaluation with recommendation for regular diet/thin liquids with direct supervision one-to-one. --Encourage continued outpatient ST evaluation and ongoing evaluations with prescription given. --Given significant sedated regimen we recommend at this time decreasing doxepin to 150 mg nightly and further decreasing this slowly to avoid notable withdrawal symptoms in addition to transition of clonazepam from 1 mg p.o. 3 times daily to 0.5 mg twice daily and continue tapering down per PCP in addition. At this time we will continue currently prescribed buspirone regimen. Would benefit from alternate medication for insomnia consideration. Discharge Orders/Prescriptions Prescriptions: New levofloxacin 500 mg tablet 500 mg PO DAILY 5 Days Qty: 5 0RF metronidazole 500 mg tablet 500 mg PO Q8H 5 Days Qty: 15 0RF Continued buspirone 7.5 MG tablet 7.5 mg PO BID Changed clonazepam 1 MG tablet 0.5 mg PO BID 14 Days Qty: 14 0RF Rx Instructions: Please cut back to 0.5 mg BID and follow closely with PCP to have directed taper off given already on buspirone regimen also. omeprazole 40 mg capsule,delayed release(DR/EC) 40 mg PO DAILY 30 Days Qty: 30 0RF Patient Comments: pt states she take the med once a day but not every day doxepin 150 mg capsule 150 mg PO QHS 30 Days Qty: 30 0RF Rx Instructions: Given notable encephalopathy, recurrent aspiration issues, decrease to 150 mg q HS and with PCP direction taper dose over the next several weeks. Referrals / Follow Up: Harish Luis Chi, MD [Primary Care Provider] - (Follow-up within PCP within 3-5 days.) Disposition Disposition (needs filled in before D/C Order can be placed): Home Health Service Charges/Coding Visit Charges Inpatient E&M: 67217 Disch Hosp >30min
--- NOTE | 2024-09-22 18:07 | DCINST_ITS ---
Discharge Instructions Diet Discharge Diet: - (Regular diet/thin liquids with direct supervision one-to-one) DC O2, CPAP, BIPAP needs Home O2 Discharge instructions: No Dressing / Incision Discharge Activity: - (Encourage routine activity in the home with assistive devices for added support.) May resume sexual activity in: No Restrictions Weight Bearing Status: Weight bearing as tolerated Dressing / Incision Call your doctor if you observe: Fever of 101 or Higher, Numbness or Tingling, Shortness of breath, Dizziness, Chest pain, Increased palpitations (irregular heartbeat), Calf discomfort and Uncontrolled pain Follow Up Care Test Results: Test results from this visit will be discussed in further detail at your follow- up appointment, if applicable. Discharge Plan Admission Admit Date/Time: 09/21/24 20:12 Primary Reason for Your Visit: Encephalopathy, Aspiration PNA Attending Provider: Anastasia Khan Primary Care Provider: Harish Luis Chi Consulting Providers: Ricardo Justice Instructions Patient Instructions: Dysphagia Aspiration, Dysphagia Aspiration Tx Additional Instructions / Restrictions: ADDITIONAL DISCHARGE INFORMATION/INSTRUCTIONS: #1. Acute Encephalopathy (CONFUSION), suspected multifactorial, secondary to Acute Suspected Aspiration Pneumonia with known chronic oropharyngeal dysphagia in addition to Chronic sedation medication (Doxepin, Buspar, Clonazepam all concurrently) usage with persistent debility, mechanical falls: -- Maintain initially on IV Levaquin and IV Flagyl while inpatient given allergy history, transition to oral regimen for an additional 5-day duration at discharge. --CT head upon admission with no acute findings and repeat CT head at [place] roximately 24 hours unremarkable. --ST evaluation with recommendation for regular diet/thin liquids with direct supervision one-to-one. --Encourage continued outpatient ST evaluation and ongoing evaluations with prescription given. --Given significant sedated regimen we recommend at this time decreasing doxepin to 150 mg nightly and further decreasing this slowly to avoid notable withdrawal symptoms in addition to transition of clonazepam from 1 mg p.o. 3 times daily to 0.5 mg twice daily and continue tapering down per PCP in addition. At this time we will continue currently prescribed buspirone regimen. Would benefit from alternate medication for insomnia consideration. Discharge Orders/Prescriptions Prescriptions: New levofloxacin 500 mg tablet 500 mg PO DAILY 5 Days Qty: 5 0RF metronidazole 500 mg tablet 500 mg PO Q8H 5 Days Qty: 15 0RF Continued buspirone 7.5 MG tablet 7.5 mg PO BID Changed clonazepam 1 MG tablet 0.5 mg PO BID 14 Days Qty: 14 0RF Rx Instructions: Please cut back to 0.5 mg BID and follow closely with PCP to have directed taper off given already on buspirone regimen also. omeprazole 40 mg capsule,delayed release(DR/EC) 40 mg PO DAILY 30 Days Qty: 30 0RF Patient Comments: pt states she take the med once a day but not every day doxepin 150 mg capsule 150 mg PO QHS 30 Days Qty: 30 0RF Rx Instructions: Given notable encephalopathy, recurrent aspiration issues, decrease to 150 mg q HS and with PCP direction taper dose over the next several weeks. Referrals / Follow Up: Harish Luis Chi, MD [Primary Care Provider] - (Follow-up within PCP within 3-5 days.) Disposition Disposition (needs filled in before D/C Order can be placed): Home Health Service
--- NOTE | 2024-09-23 11:51 | CASEMGMT ---
Addendum entered by No Brooke 09/23/24 15:11: Social Work SW spoke w/Pablo from [facility], she will follow up w/pt. NATALIIA Tafoya Addendum entered by No Brooke 09/23/24 14:25: Social Work Pablo from [facility] called SW back, SW called her back, message left. NATALIIA Tafoya Original Note: Social Work SW called [facility] again as pt was discharged yesterday, message left. NATALIIA Tafoya
== END 2024-09-22 17:16 | disposition home or self-care (01) ==
LOC: ED 20:11 → PCU 20:32
PROVIDERS: Admitting Provider Internal Medicine; Emergency Provider Emergency Medicine; PCP Family Medicine Geriatric Medicine; Visit Provider Family Medicine
DX: J69.0 Pneumonitis due to inhalation of food and vomit (principal); G92.8 Other toxic encephalopathy; Z86.718 Personal history of other venous thrombosis and embolism; I10 Essential (primary) hypertension; M48.02 Spinal stenosis, cervical region; G89.29 Other chronic pain; E78.00 Pure hypercholesterolemia, unspecified; D64.9 Anemia, unspecified; K21.9 Gastro-esophageal reflux disease without esophagitis; F17.290 Nicotine dependence, other tobacco product, uncomplicated; F41.9 Anxiety disorder, unspecified; R26.89 Other abnormalities of gait and mobility; M41.82 Other forms of scoliosis, cervical region; R13.12 Dysphagia, oropharyngeal phase; Z86.711 Personal history of pulmonary embolism; R29.6 Repeated falls; F32.A Depression, unspecified; Z79.899 Other long term (current) drug therapy
CPT/HCPCS: 36415; 70450; 71046; 71250; 80053; 80061; 80307; 81001; 82077; 82607; 82746; 82803; 83036; 83605; 83735; 84100; 84443; 85025; 85379; 87040; 87631; 92610; 93005; 96361; 96365; 96366; 96367; 96372; 96375; 97162; 97166; 97802; 99221; 99285; P9612; A4216; G0378

== ENCOUNTER 2024-09-27 12:26 | Observation (INO) | payer MEDICARE, SELFPAY ==
[2024-09-27 12:26] VITALS: BP 114/76; PULSE 83; RESP 16; TEMP 36.9; O2SAT 95; BMI 18.8
[2024-09-27] MEDS: 0.9% Normal Saline (1000mL) 1,000 ML 150 ML IV (13:13)
[2024-09-27 13:34] LABS: Mucous, Urine 0 SEEN /hpf (<or=2+); Squamous Epithelial Cells - UA 0 SEEN /hpf (5-10)
[2024-09-27 13:37] LABS: Color, Urine Yellow (Yellow); Glucose, Dipstick Normal (Normal); Ketone-Dipstick Negative (Negative); Leukocyte Esterase-Dipstick 500 /ul (Negative); Nitrite-Dipstick Negative (Negative); Occult Blood-Urine 10 /ul (Negative); Protein-Dipstick 30 mg/dl (Negative); Specific Gravity, Urine 1.015 (1.002-1.030); Urine Bilirubin Dipstick Negative (Negative)
[2024-09-27 13:39] LABS: Hematocrit 33.7 % (37-47); Hemoglobin 10.9 g/dL (12.0-15.0); Immature Granulocytes Count 0.050 X10^3/uL (0.0-0.0); Mean Corp Hgb Conc 32.3 g/dL (32-36); Mean Corpuscular Volume 95.5 fL (81-99); Mean Platelet Vol. 10.3 fl (6.2-12.0); NRBC Flagged by Analyzer 0 % (0-5); Platelet Count 374 K/mm3 (150-450); RBC Distribution Width CV 14.0 % (11.6-14.6); RBC Distribution Width SD 48.4 fl (35.1-43.9); Red Blood Count 3.53 M/mm3 (4.2-5.4); White Blood Count 8.5 K/mm3 (4.4-11.0)
[2024-09-27 13:47] LABS: Red Blood Cells-Urine 0-5 SEEN /hpf (0-5); Yeast-Urine 1+ /hpf (None Seen)
[2024-09-27 14:14] LABS: AST(SGOT) 44 U/L (<=31); Alanine Aminotransfer ALT/SGPT 20 U/L (<=34); Albumin, Serum 3.1 g/dL (3.4-4.8); Alkaline Phosphatase 102 U/L (35-104); Ammonia 12.1 umol/L (11-51); Anion Gap 12 (5-15); BUN 9 mg/dL (4-19); BUN/Creat Ratio 10.3 RATIO (10-20); Calcium,Total 8.9 mg/dL (7.6-11.0); Carbon Dioxide 24.3 mmol/L (21.0-32.0); Chloride 105 mmol/L (98-108); Estimated Creatinine Clearance 44.18 ml/min (50-250); Globulin 3.5 g/dL (2.2-4.2); Glucose 118 mg/dL (70-99); Potassium 3.3 mmol/L (3.3-5.1)
[2024-09-27 14:26] VITALS: BP 161/79; PULSE 78; RESP 20; O2SAT 98
[2024-09-27 15:19] VITALS: BP 168/86; PULSE 79; RESP 27; TEMP 36.4; O2SAT 98
[2024-09-27] MEDS: 0.9% Normal Saline (1000mL) 1,000 ML 100 ML IV (17:05)
[2024-09-27 20:47] VITALS: BP 135/86; PULSE 83; RESP 16; TEMP 36.8; O2SAT 95
[2024-09-27 20:49] VITALS: PULSE 83
[2024-09-27] MEDS: DOXEPIN HCL 50 MG CAPSULE 150 MG PO (22:35)
[2024-09-28 02:41] VITALS: BP 127/64; PULSE 80; RESP 18; TEMP 36.7; O2SAT 96
[2024-09-28 05:25] VITALS: BMI 20.7
[2024-09-28 05:35] LABS: Hematocrit 27.5 % (37-47); Hemoglobin 9.1 g/dL (12.0-15.0); Immature Granulocytes Count 0.020 X10^3/uL (0.0-0.0); Mean Corp Hgb Conc 33.1 g/dL (32-36); Mean Corpuscular Volume 94.2 fL (81-99); Mean Platelet Vol. 9.9 fl (6.2-12.0); NRBC Flagged by Analyzer 0 % (0-5); Platelet Count 347 K/mm3 (150-450); RBC Distribution Width CV 14.0 % (11.6-14.6); RBC Distribution Width SD 48.6 fl (35.1-43.9); Red Blood Count 2.92 M/mm3 (4.2-5.4); White Blood Count 5.1 K/mm3 (4.4-11.0)
[2024-09-28 06:15] LABS: AST(SGOT) 33 U/L (<=31); Alanine Aminotransfer ALT/SGPT 14 U/L (<=34); Albumin, Serum 2.5 g/dL (3.4-4.8); Alkaline Phosphatase 82 U/L (35-104); Anion Gap 8 (5-15); BUN 9 mg/dL (4-19); BUN/Creat Ratio 12.2 RATIO (10-20); Calcium,Total 8.2 mg/dL (7.6-11.0); Carbon Dioxide 23.4 mmol/L (21.0-32.0); Chloride 109 mmol/L (98-108); Estimated Creatinine Clearance 46.56 ml/min (50-250); Globulin 2.7 g/dL (2.2-4.2); Glucose 82 mg/dL (70-99); Potassium 3.3 mmol/L (3.3-5.1)
[2024-09-28 07:40] VITALS: BP 153/88; PULSE 85; RESP 18; TEMP 36.6; O2SAT 94
[2024-09-28 07:41] VITALS: O2SAT 93
[2024-09-28 13:50] VITALS: RESP 18; O2SAT 94
[2024-09-28 15:00] VITALS: BP 112/68; PULSE 84; RESP 18; TEMP 36.6; O2SAT 97
[2024-09-28] MEDS: Lidocaine 5% Patch 1 PATCH TOPICAL (21:09)
[2024-09-28 21:16] VITALS: BP 148/73; PULSE 79; RESP 18; TEMP 36.9; O2SAT 94
[2024-09-28] MEDS: DOXEPIN HCL 50 MG CAPSULE 150 MG PO (21:23)
[2024-09-29 03:14] VITALS: BP 129/71; PULSE 74; RESP 18; TEMP 36.5; O2SAT 94
[2024-09-29 06:00] VITALS: BMI 19.2
[2024-09-29 06:16] LABS: AST(SGOT) 26 U/L (<=31); Alanine Aminotransfer ALT/SGPT 12 U/L (<=34); Albumin, Serum 2.5 g/dL (3.4-4.8); Alkaline Phosphatase 80 U/L (35-104); Anion Gap 9 (5-15); BUN 9 mg/dL (4-19); BUN/Creat Ratio 11.6 RATIO (10-20); Calcium,Total 8.6 mg/dL (7.6-11.0); Carbon Dioxide 23.3 mmol/L (21.0-32.0); Chloride 110 mmol/L (98-108); Estimated Creatinine Clearance 46.56 ml/min (50-250); Globulin 2.8 g/dL (2.2-4.2); Glucose 86 mg/dL (70-99); Potassium 3.7 mmol/L (3.3-5.1)
[2024-09-29 07:54] VITALS: O2SAT 95
[2024-09-29 08:09] VITALS: BP 166/91; PULSE 78; RESP 16; TEMP 36.7; O2SAT 96
[2024-09-29 09:33] LABS: Hematocrit 29.1 % (37-47); Hemoglobin 9.5 g/dL (12.0-15.0); Mean Corp Hgb Conc 32.6 g/dL (32-36); Mean Corpuscular Volume 95.1 fL (81-99); RBC Distribution Width CV 14.0 % (11.6-14.6); Red Blood Count 3.06 M/mm3 (4.2-5.4); White Blood Count 4.6 K/mm3 (4.4-11.0)
[2024-09-29 09:34] LABS: Mean Platelet Vol. 9.7 fl (6.2-12.0); Platelet Count 426 K/mm3 (150-450); RBC Distribution Width SD 48.3 fl (35.1-43.9)
[2024-09-29 09:39] LABS: Immature Granulocytes Count 0.020 X10^3/uL (0.0-0.0)
[2024-09-29 14:22] VITALS: BP 118/69; PULSE 100; RESP 17; TEMP 36.4; O2SAT 97
== END 2024-09-29 15:33 | disposition skilled nursing facility (03) ==
LOC: ED 14:57 → MS3 15:24
PROVIDERS: Admitting Provider Family Medicine; Emergency Provider Emergency Medicine; PCP Family Medicine Geriatric Medicine; Visit Provider Internal Medicine
DX: R29.6 Repeated falls (principal); R54 Age-related physical debility; R62.7 Adult failure to thrive; D63.8 Anemia in other chronic diseases classified elsewhere; R13.12 Dysphagia, oropharyngeal phase; I12.9 Hypertensive chronic kidney disease with stage 1 through stage 4 chronic kidney disease, or unspecified chronic kidney disease; M48.02 Spinal stenosis, cervical region; N18.2 Chronic kidney disease, stage 2 (mild); K21.9 Gastro-esophageal reflux disease without esophagitis; F17.290 Nicotine dependence, other tobacco product, uncomplicated; F41.8 Other specified anxiety disorders; M41.9 Scoliosis, unspecified; G89.29 Other chronic pain; Z79.899 Other long term (current) drug therapy; Z86.711 Personal history of pulmonary embolism; Z86.718 Personal history of other venous thrombosis and embolism; Z86.16 Personal history of COVID-19; E78.00 Pure hypercholesterolemia, unspecified
CPT/HCPCS: 36415; 70450; 71045; 72170; 80053; 81001; 82140; 85025; 87631; 92610; 93005; 94668; 96360; 96361; 96372; 97116; 97162; 97166; 97530; 99221; 99285; P9612; A4216; G0378

== ENCOUNTER 2024-09-29 15:45 | Inpatient (IN) | payer MEDICARE, SELFPAY ==
[2024-09-29 15:51] VITALS: BP 137/70; PULSE 90; PULSE 95; RESP 18; TEMP 36.7; BMI 18.6
--- NOTE | 2024-09-29 19:26 | HP.PCM_ITS ---
HPI - General General Date of Admission: 09/29/24 Date of Service: 09/29/24 Chief Complaint: Here for rehabilitation. HPI Narrative CAROL ZARAGOZA, is a 74 Female who presents with following 09/27/2024 [facility] ED falls. Fell, hit head, no loss of consciousness, cough x 6 months. Not doing well at home. CT brain negative, Chest bilateral lower lobe consolidation, urinalysis negatie. 09/27/2024 Admit [facility]. PT/OT/CM for TCU. ST, Levaquin/Flagyl for aspiration pneumonia. 09/28/2024 No acute events overnight, SNF recommended. PT/OT TCU. 09/29/2024 Admit to TCU with debility, here for rehabilitation, strengthening, prior to discharge home. [facility] Medical History (Updated 09/29/24 @ 19:[address] Harish Luis MD) Anxiety and depression Fracture of humeral head Falls Pulmonary emboli Hypoxia Aspiration pneumonia Closed head injury Vitamin D deficiency Irritable bowel syndrome without diarrhea Stenosis, cervical spine Chronic cough Allergic rhinitis Insomnia HLD (hyperlipidemia) Movement disorder Gastroparesis Dysphagia Pain from implanted hardware Wears hearing aid Wears dentures Wears glasses Post-menopausal Uses wheelchair Walker as ambulation aid Ambulates with cane Arthritis High cholesterol Back pain Migraine headache Gastric reflux Former smoker Shortness of breath on exertion History of stress test Hypertension COVID-19 Scoliosis of lumbar spine Segmental and somatic dysfunction of pelvic region Segmental dysfunction of thoracic region Segmental and somatic dysfunction of lumbar region Carpal tunnel syndrome on both sides Chronic lower back pain Home Medications ?Medication ?Instructions ?Recorded ?Last Taken ?Type buspirone 7.5 mg tablet 7.5 mg PO BID ANXIETY 09/29/24 08:15 History clonazepam 1 mg tablet 0.5 mg (1/2 x 1 mg) PO BID A NXIETY 09/22/24 09/29/24 08:15 Rx 14 days #14 tabs doxepin 150 mg capsule 150 mg PO QHS ANXIETY 30 da ys #30 09/22/24 09/28/24 21:25 Rx caps omeprazole 40 mg capsule,delayed 40 mg PO DAILY GERD 3 0 days #30 09/22/24 09/29/24 08:10 Rx release caps acetaminophen 325 mg tablet 650 mg (2 x 325 mg) PO Q4H PRN PRN 09/29/24 09/28/24 23:45 Rx Fever, pain 1-12/26 #0 tabs aluminum-mag hydroxide-simethicone 30 ml PO Q6H PRN PA N Gastric 09/29/24 Unknown Rx 400 mg-400 mg-40 mg/5 mL oral susp Burning #0 mL (Mag-Al Plus Extra Strength) lidocaine 5 % topical patch 1 patch topical 2200 Pain #0 ea 09/29/24 09/28/24 21:10 Rx melatonin 3 mg tablet 3 mg PO QHS PRN PRN Insomnia #0 09/29/24 Unknown Rx tabs sennosides 8.6 mg-docusate sodium 2 tab PO BID PRN PRN Constipation 09/29/24 Unknown Rx 50 mg tablet (Stimulant Laxative #0 tabs Plus) Allergy/AdvReac Type Severity Reaction Status Date / Time Penicillins Allergy Rash Verified 09/27/24 12:28 Family History Mother Hypertension CVA (cerebral vascular accident) Heart disease Cerebral hemorrhage Father Cancer Hx stomach cancer and leukemia. Surgical History History of cardiac catheterization Hx of dilation and curettage History of 2 sections Hx of surgical procedure History of lumbar laminectomy Social History household members: spouse housing: house number of children: 2 Smoking Status: Current every day smoker tobacco type: e-cigarettes alcohol intake: never substance use type: does not use what type of physical activity do you participate in: none additional social history: Currently ambulating with a cane ROS Constitutional Constitutional: Reports weakness; Denies chills, fever(s) or weight gain ENT HEENT: Denies headache(s), nasal congestion or nasal discharge Cardiovascular Cardiovascular: Denies chest pain or palpitations Respiratory/Chest Respiratory/Chest: Denies cough, excessive phlegm production or shortness of breath with exertion Gastrointestinal Gastrointestinal: Denies abdominal pain, nausea or vomiting Genitourinary Genitourinary: Denies dysuria Musculoskeletal Musculoskeletal: Denies joint pain or joint swelling Integumentary Integumentary: Denies rash or wounds Neurologic Neurologic: Denies focal weakness, numbness or tingling Psychiatric Psychiatric: Denies anxiety, auditory hallucinations, depression, homicidal ideation or suicidal ideation Vital Signs Vital Signs Vital Signs: 09/29/24 15:51 09/29/24 15:51 Temperature 98.1 F Temperature Source Temporal Pulse Rate 90 95 Pulse Rhythm Regular Pulse Strength Normal (2+) Respiratory Rate 18 18 Respiratory Effort Normal Blood Pressure 137/70 H Blood Pressure Mean 92 Blood Pressure Source Monitor Blood Pressure Position Semi-Fowlers Blood Pressure Location Right Arm Oxygen Delivery Method Room Air Room Air Weight Weight: 44.8 kg Body Mass Index (BMI) 18.6 Physical Exam Const alert General Appearance: cooperative HEENT normocephalic Eyes PERRL and EOMs intact bilaterally Neck supple, no JVD and no carotid bruits Resp normal respiratory effort, normal air movement and clear to auscultation bilaterally Cardio regular rate and regular rhythm GI normal to inspection, nondistended, normoactive bowel sounds, non-tender and non-distended Extremity normal capillary refill General Extremity: Negative for edema Skin no rashes or lesions noted General Skin Exam: no breakdown Psych affect normal Appearance: appropriate Assessment & Plan Assessment/Plan (1) Debility: (2) Multiple falls: (3) Adult failure to thrive: (4) Anxiety: (5) Insomnia: (6) GERD (gastroesophageal reflux disease): PLAN: Plan 74 year old female with below past medical history hospitalized for falls, failure to thrive, admitted to TCU with debility, here for rehabilitation, strengthening, prior to discharge home with . * Debility - PT/OT. * Dysphagia - ST. * Pain - Tylenol 1000mg q6 prn pain (1-10), Lidoderm 1 patch td daily. * Bowel - senna/colace 1 tablet bid, Magnesium citrate 300mL daily prn. * Adult immunization - Administer pneumonia vaccine, covid vaccine, flu vaccine as appropriate. * DVT prophylaxis - Hold, frequent falls. The following psychotropic medication was present on admission: Buspar 7.5mg bid. Psychotropic medication therapy is indicated for a diagnosis of: Anxiety. Based on my clinical evaluation, continuation of the medication is necessary at this time. Gradual dose reduction plan (select one): ____ GDR will be attempted. Will monitor patient symptoms and behaviors in response to GDR. __x__ GRD contraindicated. Reason contraindicated: stable chronic detention use. The following psychotropic medication was present on admission: Clonazepam 0.5mg bid. Psychotropic medication therapy is indicated for a diagnosis of: Anxiety. Based on my clinical evaluation, continuation of the medication is necessary at this time. Gradual dose reduction plan (select one): __x__ GDR will be attempted. Will monitor patient symptoms and behaviors in response to GDR. ____ GRD contraindicated. Reason contraindicated: The following psychotropic medication was present on admission: Doxepin 75mg qhs. Psychotropic medication therapy is indicated for a diagnosis of: Insomnia. Based on my clinical evaluation, continuation of the medication is necessary at this time. Gradual dose reduction plan (select one): __x__ GDR will be attempted. Will monitor patient symptoms and behaviors in response to GDR. ____ GRD contraindicated. Reason contraindicated:
[2024-09-29] MEDS: Lidocaine 5% Patch 1 PATCH TOPICAL (20:09)
[2024-09-30 05:50] LABS: Hematocrit 28.9 % (37-47); Hemoglobin 9.6 g/dL (12.0-15.0); Immature Granulocytes Count 0.020 X10^3/uL (0.0-0.0); Mean Corp Hgb Conc 33.2 g/dL (32-36); Mean Corpuscular Volume 94.1 fL (81-99); Mean Platelet Vol. 9.4 fl (6.2-12.0); NRBC Flagged by Analyzer 0 % (0-5); Platelet Count 468 K/mm3 (150-450); RBC Distribution Width CV 14.1 % (11.6-14.6); RBC Distribution Width SD 48.4 fl (35.1-43.9); Red Blood Count 3.07 M/mm3 (4.2-5.4); White Blood Count 5.4 K/mm3 (4.4-11.0)
[2024-09-30 06:11] LABS: Anion Gap 10 (5-15); BUN 9 mg/dL (4-19); BUN/Creat Ratio 12.3 RATIO (10-20); Calcium,Total 8.6 mg/dL (7.6-11.0); Carbon Dioxide 26.4 mmol/L (21.0-32.0); Chloride 107 mmol/L (98-108); Estimated Creatinine Clearance 43.63 ml/min (50-250); Glucose 106 mg/dL (70-99); Potassium 3.4 mmol/L (3.3-5.1)
[2024-09-30 08:23] LABS: Iron 37 ug/dL (50-170); Iron Binding Capacity,Unsat 146 ug/dL (228-428)
[2024-09-30 08:27] LABS: Iron Binding Capacity,Total 183 ug/dL (250-450)
[2024-09-30 09:30] VITALS: BP 113/77; PULSE 89; RESP 16; TEMP 36.9; O2SAT 96
[2024-09-30] MEDS: Tuberculin,Purif.prot.deriv. 50 TU/ML Vial 0.1 ML ID (10:16)
[2024-09-30 11:25] VITALS: PULSE 93; RESP 16; O2SAT 93
--- NOTE | 2024-09-30 14:48 | NURSING ---
PT CAME IN AND THIS NURSE UPDATED ON NEW ORDERS AND GAVE THE PILLS TO TAKE HOME,ALEVE AND CLONAZEPAM THAT WERE FOUND ON [employer] THAT PT HAD. RN AWARE
--- NOTE | 2024-09-30 14:48 | NURSING ---
PT CAME IN AND THIS NURSE UPDATED ON NEW ORDERS AND GAVE THE PILLS TO TAKE HOME,ALEVE AND CLONAZEPAM THAT WERE FOUND ON [employer] THAT PT HAD. RN AWARE
[2024-09-30 16:12] VITALS: BMI 19.4
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
--- NOTE | 2024-09-30 18:12 | NURSING ---
PER SPEECH THERAPY WOULD LIKE A GI CONSULT FOR PT ESOPHAGUS AND SPEECH WILL PUT IN ORDER FOR A MBSS. NOTE LEFT FOR . RN AWARE.
--- NOTE | 2024-09-30 18:12 | NURSING ---
PER SPEECH THERAPY WOULD LIKE A GI CONSULT FOR PT ESOPHAGUS AND SPEECH WILL PUT IN ORDER FOR A MBSS. NOTE LEFT FOR . RN AWARE.
[2024-09-30] MEDS: Clotrimazole/Betamethasone 1 Tube 1 APPLIC TOPICAL (20:10)
[2024-10-01 05:46] LABS: Hematocrit 30.1 % (37-47); Hemoglobin 9.8 g/dL (12.0-15.0)
[2024-10-01 09:00] VITALS: BP 123/73; PULSE 93; RESP 16; TEMP 36.8; O2SAT 94
--- NOTE | 2024-10-01 09:35 | CASEMGMT ---
Addendum entered by Narda Emanuel 10/01/24 17:09: SW spoke with Dr. Luis approx 11:45 am. Provided update on incident this morning and ST eval. Pt scored 17/30 on MOCA - moderate impairment. MANAGER TECHNICAL SUPPORT reports pt has no awareness to safety, fall risk, and did not recall events from yesterday or recalls pt has extensive fall history. confirms pt does not have the capacity to make decisions and to invoke HCPOA - . MASSIEL updated charge nurse and HRO. - MASSIEL collaborated with See Wheeler of . Discussed medical hold policy and Dr completing expert eval. See Wheeler agrees for Dr to complete expert eval and for Dr to decide if he wants to place medical hold. SW provided Dr with medical hold policy for him to review during rounds. Updated floor nurses and HRO. Will continue to follow. Original Note: Social Work SANDER MACHINE alerted this worker that pt was trying to leave unit for home and was present. SW entered room and pt visibly agitated. pt in w/c with purse on her lap and self propelling toward door. sitting on the bed with his cane next to him. Both arguing. SW requested HRO/Security assistance. SW intervened with pt and , sat next to pt and began assessing the situation. SW introduced self and role to . raised voice and was not pleasant to this worker. SW speaking with pt. Pt voicing wishes to be home and not wanting to be in TCU anymore. MASSIEL engaged in conversation to explore reasons further on why pt wants to DC. LY Petty and Analytical Technician Anthony arrived to room. LY Petty assisted with conversation and de-escalation. Pt continued being adamant about leaving. MASSIEL and LY ePtty provided reasoning to remain in TCU for ongoing therapy and ensure safety and promote independent at home; reduce risk for falls. Pt voicing being noncompliant with therapy if she remains. speaking with pt intermittently and pt and would raise their voices and argue. MASSIEL and LY Petty continued intervening. SW redirecting focus on pt and well-being to remain. MASSIEL explained Dr is not agreeable for pt to DC at this time. MASSIEL offered for pt to remain for therapy and medical stabilization taking it a day at at time. rounds this evening and can follow up with pt. (Dr Luis is pt's PCP). Pt beginning to calm down, voiced missing her pets, and being concerned about her dtr being at home recovering from surgery and wanting to care for her. SW empathized with pt. Acknowledged difficulty being admitted and not being with her dtr, but pt to focus on her personal improvement in order to help dtr. agreed. voiced multiple times that he cannot care for pt at home and cares for her and wants her to remain in TCU for ongoing therapy. Offered for pt to socialize outside of room in [facility]. Pt denied. Pt asked if he brought her laptop, and confirmed. SW offered for to get laptop and pt can use that at her leisure. pt agreed and to transfer to recliner chair. exited room with HRO and security. SW assisted pt with getting her comfortable. Pt became emotional. SW provided support and will continue to follow pt. Pt agreed. - SW conversed with , HRO and Security. agreed for pt to remain in TCU until Dr agrees to DC. inquired about AL. SW educated briefly to OOP cost and determining if pt can make that decision, as stated she would not agree on her own. SW will speak with Dr. Luis on capacity after ST eval and how to proceed. appreciative. - MASSIEL updated MANAGER TECHNICAL SUPPORT and IDT. Narda Emanuel ANIMAL DAYCARE PROVIDER SUPERVISOR STOCK RANCH
--- NOTE | 2024-10-01 09:35 | CASEMGMT ---
Addendum entered by Narda Emanuel 10/01/24 17:09: SW spoke with Dr. Luis approx 11:45 am. Provided update on incident this morning and ST eval. Pt scored 17/30 on MOCA - moderate impairment. MEDICAL EDUCATION MANAGER reports pt has no awareness to safety, fall risk, and did not recall events from yesterday or recalls pt has extensive fall history. confirms pt does not have the capacity to make decisions and to invoke HCPOA - . MASSIEL updated charge nurse and HRO. - MASSIEL collaborated with Principal Cloud Architect of . Discussed medical hold policy and Dr completing expert eval. Principal Cloud Architect agrees for Dr to complete expert eval and for Dr to decide if he wants to place medical hold. SW provided Dr with medical hold policy for him to review during rounds. Updated floor nurses and HRO. Will continue to follow. Original Note: Social Work LINE RIDER alerted this worker that pt was trying to leave unit for home and was present. SW entered room and pt visibly agitated. pt in w/c with purse on her lap and self propelling toward door. sitting on the bed with his cane next to him. Both arguing. SW requested HRO/Security assistance. SW intervened with pt and , sat next to pt and began assessing the situation. SW introduced self and role to . raised voice and was not pleasant to this worker. SW speaking with pt. Pt voicing wishes to be home and not wanting to be in TCU anymore. MASSIEL engaged in conversation to explore reasons further on why pt wants to DC. LY Petty and Watch Repairer Apprentice Anthony arrived to room. LY Petty assisted with conversation and de-escalation. Pt continued being adamant about leaving. MASSIEL and LY Petty provided reasoning to remain in TCU for ongoing therapy and ensure safety and promote independent at home; reduce risk for falls. Pt voicing being noncompliant with therapy if she remains. speaking with pt intermittently and pt and would raise their voices and argue. MASSIEL and LY Petty continued intervening. SW redirecting focus on pt and well-being to remain. MASSIEL explained Dr is not agreeable for pt to DC at this time. MASSIEL offered for pt to remain for therapy and medical stabilization taking it a day at at time. rounds this evening and can follow up with pt. (Dr Luis is pt's PCP). Pt beginning to calm down, voiced missing her pets, and being concerned about her dtr being at home recovering from surgery and wanting to care for her. SW empathized with pt. Acknowledged difficulty being admitted and not being with her dtr, but pt to focus on her personal improvement in order to help dtr. agreed. voiced multiple times that he cannot care for pt at home and cares for her and wants her to remain in TCU for ongoing therapy. Offered for pt to socialize [facility] of [facility]. Pt denied. Pt asked if he brought her laptop, and confirmed. SW offered for to get laptop and pt can use that at her leisure. pt agreed and to transfer to recliner chair. exited room with HRO and security. SW assisted pt with getting her comfortable. Pt became emotional. SW provided support and will continue to follow pt. Pt agreed. - SW conversed with , HRO and Security. agreed for pt to remain in TCU until Dr agrees to DC. inquired about AL. SW educated briefly to OOP cost and determining if pt can make that decision, as stated she would not agree on her own. SW will speak with Dr. Luis on capacity after ST eval and how to proceed. appreciative. - MASSIEL updated MEDICAL EDUCATION MANAGER and IDT. Narda Emanuel LINK TRAINER MAINTENANCE WORKER CHAINER
--- NOTE | 2024-10-01 10:29 | EX.PCM.CON.G ---
HPI Consult Data Date of Consult: 10/01/24 HPI Narrative Reason for Consultation: dysphagia HPI Narrative: - c/o postprandial heartburn, improved with Omeprazole 40mg QD - reports she was not taking prior to admission - occ. SOB - reports 25-30lb weight loss in the past 3 years - upper denture - loose - lower dentition poor - awaiting implants - c/o oral burning with PO intake, decreasing PO intake - vapes - denies alcohol - denies any N/V - denies any coughing with PO intake - denies dysphagia - denies any odynophagia - ambulates with cane at home, walker in-patient - denies any change in bowel habits - denies any abdominal pain - spoke with HERON Cifuentes and ST [facility] Medical History (Updated 10/01/24 @ 11:56 by Gladys Anaya PBX SUPERVISOR-C) Dysphagia Oropharyngeal dysphagia Frequent falls Anxiety and depression Fracture of humeral head Falls Pulmonary emboli Hypoxia Closed head injury Vitamin D deficiency Irritable bowel syndrome without diarrhea Stenosis, cervical spine Chronic cough Allergic rhinitis Insomnia HLD (hyperlipidemia) Movement disorder Gastroparesis Pain from implanted hardware Wears hearing aid Wears dentures Wears glasses Post-menopausal Uses wheelchair Walker as ambulation aid Ambulates with cane Arthritis High cholesterol Back pain Migraine headache Gastric reflux Former smoker Shortness of breath on exertion History of stress test Hypertension COVID-19 Scoliosis of lumbar spine Segmental and somatic dysfunction of pelvic region Segmental dysfunction of thoracic region Segmental and somatic dysfunction of lumbar region Carpal tunnel syndrome on both sides Chronic lower back pain Home Medications ?Medication ?Instructions ?Recorded ?Last Taken ?Type buspirone 7.5 mg tablet 7.5 mg PO BID ANXIETY 02/17/20 09/29/24 08:15 History clonazepam 1 mg tablet 0.5 mg (1/2 x 1 mg) PO BID ANXIETY 09/22/24 09/29/24 08:15 Rx 14 days #14 tabs doxepin 150 mg capsule 150 mg PO QHS ANXIETY 30 days #09/22/24 09/28/24 21:25 Rx caps omeprazole 40 mg capsule,delayed 40 mg PO DAILY GERD 30 days #30 09/22/24 09/29/24 08:10 Rx release caps acetaminophen 325 mg tablet 650 mg (2 x 325 mg) PO Q4H PRN PRN 09/29/24 09/28/24 23:45 Rx Fever, pain 1-12/26 #0 tabs aluminum-mag hydroxide-simethicone 30 ml PO Q6H PRN PRN Gastric 09/29/24 Unknown Rx 400 mg-400 mg-40 mg/5 mL oral susp Burning #0 mL (Mag-Al Plus Extra Strength) lidocaine 5 % topical patch 1 patch topical 2200 Pain #0 ea 09/29/24 09/28/24 21:10 Rx melatonin 3 mg tablet 3 mg PO QHS PRN PRN Insomnia #0 09/29/24 Unknown Rx tabs sennosides 8.6 mg-docusate sodium 2 tab PO BID PRN PRN Constipation 09/29/24 Unknown Rx 50 mg tablet (Stimulant Laxative #0 tabs Plus) Allergy/AdvReac Type Severity Reaction Status Date / Time Penicillins Allergy Rash Verified 09/27/24 12:28 Family History Mother Hypertension CVA (cerebral vascular accident) Heart disease Cerebral hemorrhage Father Cancer Hx stomach cancer and leukemia. Surgical History History of cardiac catheterization Hx of dilation and curettage History of 2 sections Hx of surgical procedure History of lumbar laminectomy Social History household members: spouse housing: house number of children: 2 Smoking Status: Current every day smoker tobacco type: e-cigarettes alcohol intake: never substance use type: does not use what type of physical activity do you participate in: none additional social history: Currently ambulating with a cane ROS Constitutional Constitutional: Reports as per HPI Eyes Eyes: Denies blurry vision or change in vision Cardiovascular Cardiovascular: Denies abdominal bloating, edema, nausea or vomiting Gastrointestinal Gastrointestinal: Reports as per HPI Integumentary Integumentary: Denies change in pigmentation, jaundice or unusual bruising Neurologic Neurologic: Reports confusion Psychiatric Psychiatric: Reports change in appetite, confusion and memory loss Endocrine Endocrinology: Denies polydipsia, polyphagia or polyuria Hematologic/Lymphatic Hematologic/Lymphatic: Denies easy bleeding, easy bruising or lymphadenopathy Allergic/Immunologic Allergic/Immunologic: Denies GI upset w/certain foods, urticaria or asthma Physical Exam Const no apparent distress, average body habitus and healthy appearing General Appearance: well developed Orientation / Consciousness: oriented to person, oriented to place and oriented to time Eyes conjunctivae normal Neck General: normal visual inspection Lymph Lymphatic: no lymphadenopathy noted Resp Effort and Inspection: able to speak in complete sentences and symmetric chest movement Auscultation: clear to auscultation bilaterally Cardio regular rate and regular rhythm GI GI Narrative: ABD soft, non-tender, non-distended, BS+ x4 Medical Records Data Attestation: I reviewed the patient's medical records Lab / Micro Data Attestation: I reviewed the patient's lab results. 10/01/24 05:15 09/30/24 05:04 Labs: Laboratory Results - last 24 hr 10/01/24 05:15: Hgb 9.8 L, Hct 30.1 L Micro: Microbiology 09/30/24 14:30 Stool Stool Occult Blood (STEPHANIE) - Final Imaging EGD 11/03/22 - Tortuous esophagus. Abnormal esophageal motility, suspicious for presbyesophagus. Injected with botulinum toxin. Mild Schatzki ring. Dilated. Medium-sized hiatal hernia. Biopsies were taken with a cold forceps for evaluation of eosinophilic esophagitis. MBS 01/04/2024 Retention w/ retrograde flow of liquids and pudding. Pt is a risk for reflux aspiration. Recommendations Diet: Puree Textures and Thin Liquids Meds crushed in applesauce Assessment & Plan Assessment/Plan (1) GERD (gastroesophageal reflux disease): (2) Adult failure to thrive: (3) Dysphagia: QUALIFIERS: Dysphagia type: oropharyngeal phase Qualified Code(s): R13.12 - Dysphagia, oropharyngeal phase (4) Weight loss: PLAN: Plan 74y/o female with chronic oropharyngeal dysphagia, h/o aspiration pneumonia with abnormal esophageal motility (presbyesophagus) tx. w/ botox, mild Schatzki?s ring, and hiatal hernia presents with persistent swallowing dysfunction. PMH Anxiety, depression, GERD, CKD-II, chronic back pain, chronic normocytic anemia, VTE, tobacco use. Recently admitted s/p frequent falls with confusion empirically treated with IV antibiotic therapy for aspiration and discharged to TCU on 09/22/2024 on oral levaquin/flagyl for an additional 5-day course. CXR 09/29/2024 reveals stable bilateral lower lung consolidations (L>R), concerning for chronic aspiration related pneumonitis or recurrent aspiration pneumonia. MBS 01/04/2024 revealing retention and retrograde flow of both liquids and pudding, indicating significant oropharyngeal impairment and risk for aspiration. EGD 10/2022 revealed a tortuous esophagus, motility disorder, and reflux changes, with rare eosinophils on pathology. She is A&Ox3 with intermittent bouts of confusion. She is agreeable to repeat MBS which has been arranged for this afternoon. However, she declines repeat EGD at this time. I did speak with ST (Urmila) and who advised she will be completing a cognitive assessment of patient this morning. Per nursing staff (Vane) she is on a minced, moist diet with thin liquids. She has a history of non-compliance likely exacerbated by cognitive decline. Additionally, poor dentition is also a contributing factor to dysphagia and poor PO intake. Will await cognitive evaluation and MBS before making further recommendations. Continue Omeprazole 40mg daily OOB and up in chair for all meals, avoid laying down for at least 1 hour after meals Elevate HOB Continue diet as recommended by ST Routine oral care and OP dental f/u
--- NOTE | 2024-10-01 12:46 | NURSING ---
Protozoology Teacher Note; Activity Asset: Manav Santillan is independent in her choice of daily activities. She has her computer, watches tv, read and was given word puzzles. She welcomes visits from the warehouse selector and therapy dog when available along w/visits from [facility]. Staff will encourage social activities, Remind her of weekly activities and respect her right to say no.
--- NOTE | 2024-10-01 12:46 | NURSING ---
Contact Lens Technician Note; Activity Asset: Manav Santillan is independent in her choice of daily activities. She has her computer, watches tv, read and was given word puzzles. She welcomes visits from the director of gift planning and therapy dog when available along w/visits from [facility]. Staff will encourage social activities, Remind her of weekly activities and respect her right to say no.
--- NOTE | 2024-10-01 14:24 | SP.MBSS_ITS ---
Modified Barium Swallow Patient Information Study Date: 10/01/24 Study Time: 13:30 Direct Billable Minutes: 90 Total Minutes procedure & reportin Diagnosis: Dysphagia Referring Physician: Harish Luis Chi Reason for Referral: Objectively assess swallow function, assess risk for aspiration, and determine recommendations for least restrictive diet textures and compensatory strategies to improve safety of swallow. Dysphagia History -MBSS 01/04/24 - ?Mild-moderate oropharyngeal dysphagia R13.12; Esophageal dysphagia R13.14 Puree Texture and Thin Liquid diet recommended -EGD 11/03/22 - Tortuous esophagus. Abnormal esophageal motility, suspicious for presbyesophagus. Injected with botulinum toxin. Mild Schatzki ring. Dilated. Medium-sized hiatal hernia. Biopsies were taken with a cold forceps for evaluation of eosinophilic esophagitis. Recommended discharge patient to home. Resume previous diet. Continue present medications. -MBSS 11/02/22 ? Moderate-severe oropharyngeal dysphagia with silent aspiration of thin liquids with recommendation for NPO with consideration for FFWP and meds whole in puree. -EGD 08/02/22 - LA Grade A erosive esophagitis. Biopsied. Dilated. A large amount of food residue in the stomach. Recommended continue current medications, aspiration precautions, and gastric emptying study. -MBSS 08/01/22 - Moderate-severe oropharyngeal dysphagia and esophageal dysphagia with silent aspiration of thin liquids with recommendation for minced and moist textures / thin liquids w/ strict aspiration precautions (liquid by tsp only, 2- 3 swallows on each sip, GERD precautions). GI consult recommended. Medical History: CAROL ZARAGOZA, is a 74 Female who present to the ED on 09/27/2024 d/t falls/failure to thrive at home. Admited to TCU on 09/29/25 with debility, here for rehabilitation, strengthening, prior to discharge home. PMHx: Anxiety and depression, Fracture of humeral head, Falls, Pulmonary emboli, Hypoxia, Aspiration pneumonia, Closed head injury, Vitamin D deficiency, Irritable bowel syndrome without diarrhea, Stenosis, cervical spine, Chronic cough, Allergic rhinitis, Insomnia, HLD (hyperlipidemia), Movement disorder, Gastroparesis, Dysphagia, Pain from implanted hardware, Wears hearing aid, Wears dentures, Wears glasses, Post-menopausal, Uses wheelchair, Walker as ambulation aid, Ambulates with cane, Arthritis, High cholesterol, Back pain, Migraine headache, Gastric reflux, Former smoker, Shortness of breath on exertion, History of stress test, Hypertension, COVID-19, Scoliosis of lumbar spine, Segmental and somatic dysfunction of pelvic region, Segmental dysfunction of thoracic region, Segmental and somatic dysfunction of lumbar region, Carpal tunnel syndrome on both sides, Chronic lower back pain Current Diet Ordered: Minced and Moist/Thin Dentition: Edentulous Mental Status: WNL (sufficient to follow commands for participation in MBSS) Respiratory Status: Oxygenating on Room Air Penetration-Aspiration Scale Penetration-Aspiration Scale: OBJECTIVE ASSESSMENT OF SWALLOW FUNCTION (QUANTITATIVE ? PER TRIAL): PENETRATION / ASPIRATION SCALE (HERNANDEZ): 1 = does not enter airway 2 = enters airway/above vocal folds/ejected 3 = enters airway/above vocal folds/not ejected 4 = enters airway/contacts vocal folds/ejected 5 = enters airway/contacts vocal folds/not ejected 6 = enters airway/below vocal folds/ejected 7 = enters airway/below vocal folds/not ejected despite effort 8 = enters airway/below vocal folds/no effort VIDEOFLOROSCOPIC SCALE SCORE (HERNANDEZ): Grade I = aspiration of material that has penetrated into the laryngeal vestibule, intact cough reflex Grade II = aspiration < 10 % of the bolus, intact cough reflex Grade III = aspiration of < 10 % of the bolus, reduced cough reflex or aspiration of > 10 % of the bolus, intact cough reflex Grade IV = aspiration of > 10 % of the bolus, reduced cough reflex Penetration-Aspiration Scale Score Thin Liquid via teaspoon: Result: 2= enter airway/above vocal folds/ejected Thin Liquid via teaspoon Trial 2: Result: 2= enter airway/above vocal folds/ejected Thin Liquid via small single sip: cup: Result: 2= enter airway/above vocal folds/ejected Thin Liquid via sequential sips: cup: Result: 3= enters airways/above vocal folds/not ejected Pudding: Result: 1= does not enter airway Cookie: Comment: edentulous, unable to masticate and had to spit it out Thin Liquid via small single sip: cup Trial 2: Result: 2= enter airway/above vocal folds/ejected Thin Liquid via single sip: straw: Result: 3= enters airways/above vocal folds/not ejected Oral Phase Labial Seal: No Labial Escape Tongue Control During Bolus Hold: Escape to lateral buccal cavity/floor of mouth Bolus Preparation/Mastication: Minimal chewing/mashing with majority of bolus unchewed (had to spit it out d/t inability to sufficiently masticate) Bolus Transport/Lingual Motion: Repetitive/disorganized tongue motion Oral Residue: Residue collection on oral structures Pharyngeal Phase Initiation of Pharyngeal Swallow: Bolus head at posterior laryngeal surgace of epiglottis Soft Palate Elevation: No bolus between soft palate and pharyngeal wall Laryngeal Elevation: Partial superior movement thyroid cart/partial apprx aryt- epig petiole Anterior Hyoid Excursion: Partial anterior movement Epiglottic Movement: Partial inversion Laryngeal Vestibule Closure at Height of Swallow: Incomplete; narrow column of air/contrast in laryngeal vestibule Pharyngeal Stripping Wave: Present - diminished Pharyngoesophageal Segment Opening: Complete distension and complete duration; no obstruction of flow Tongue Base Retraction: Narrow column of contrast between tongue base & post. pharyngeal wall Pharyngeal Residue: Collection of residue within or on pharyngeal structures (vallecular residue) Esophageal Phase Esophageal Clearance: Esophageal retention (lower esophagus retention - GI referral recommended) Diagnosis/Impression Diagnosis: mild-moderate oropharyngeal dysphagia Impression: The oral phase is characterized by... * disorganized oral oral prep w/ repetitive lingual motion appreciated w/ AP bolus transportation * insufficient mastication abilities d/t edentulous status, unable to adequate chew cookie and had to expectorate it from the oral cavity The pharyngeal phase is characterized by... * delayed pharyngeal swallow onset w/ spillage to the posterior laryngeal surface of the epiglottis before pharyngeal swallow triggers * incomplete hyolaryngeal excursion resulting in incomplete laryngeal vestibule closure w/ thin liquid penetrating into the laryngeal vestibule * thin liquid consistently penetrated into the laryngeal vestibule w/ all sips, but was transient w/ single sips * sequential swallows and liquid intake via straw resulted in deeper penetration into the laryngeal vestibule w/out complete ejection, trace amount * incomplete epiglottic inversion w/ vallecular residue retained post pran dially, partially cleared w/ liquid wash The esophageal phase is characterized by... * esophageal retention evident in the lower esophagus, GI referral recommended Recommendations Diet: Minced and Moist Textures and Thin Liquids Compensatory Strategies: Small Bites, Small Sips (limit sequential swallows/sips via straw), Alternate bites/solids and sips/liquids, Sitting upright and Remain sitting upright for 30 minutes after PO intake Supervision: Distant Supervision Recommend Repeat Modified Barium Swallow: TBD Need for Skilled Speech Therapy Services: Yes Comment: ST to follow to train the patient in oropharyngeal strengthening to improve bolus control, swallow onset, tongue base retraction, pharyngeal motility (lingual resistance, Tono if able, Jamee, and effortful). Education Completed: 1. Described result of evaluation. and 2. Pt understands evaluation & agrees with goals and treatment plan. Status Active ST Patient: Active Contact Information [facility] Speech Therapy:: Daisy Esparza M.A. ACCOUNTS PAYABLE PAYROLL COORDINATOR Speech-Language Pathologist [facility] [address] [place] [address] [email or web address] [phone]
[2024-10-01] MEDS: Clotrimazole/Betamethasone 1 Tube 1 APPLIC TOPICAL (20:45)
--- NOTE | 2024-10-01 20:49 | NURSING ---
pt agitated. ambulating w/o assistance; education provided regarding safety with emphasis on fall prevention. pt acknowledged education and then persisted to attempt to self transfer passing walker that was within reach. pt assisted to bed; PM care assistance offered. pt declined PM care. HS medications administered.
[2024-10-02 06:00] LABS: Hematocrit 31.2 % (37-47); Hemoglobin 10.0 g/dL (12.0-15.0)
--- NOTE | 2024-10-02 07:48 | PHA.CONS_ITS ---
Documented by User: Adriana Ponce 10/02/24 10:11 TCU RX Drug Regimen Review Subjective/Objective Subjective/Objective Subjective: TCU Admission. 74 YOF presented to the ER with falls. Hospitalized for falls, failure to thrive. Admitted to TCU with debility for strengthening and rehabilitation. Objective: Allergies Penicillins Allergy (Verified 09/27/24 12:28) Rash Current Medications Generic Name Dose Route Start Last Admin Trade Name Freq PRN Reason Stop Dose Admin Acetaminophen 1,000 mg 09/29/24 19:21 Acetaminophen 500 Mg Tablet PO Q6H PRN PRN Pain Score 1-10 Buspirone HCl 7.5 mg 09/29/24 22:00 10/01/24 20:37 Buspirone 15 Mg Tablet PO 7.5 mg BID JEANNIE Administration Clonazepam 0.5 mg 09/29/24 22:00 10/01/24 20:38 Clonazepam 0.5 Mg Tablet PO 10/06/24 22:01 0.5 mg BID JEANNIE Administration Clonazepam 0.25 mg 10/07/24 10:00 Clonazepam 0.5 Mg Tablet PO 10/14/24 10:01 BID JEANNIE Clonazepam 0.25 mg 10/15/24 22:00 Clonazepam 0.5 Mg Tablet PO 10/22/24 22:01 QHS [facility] Clotrimazole 1 applic 09/30/24 22:00 10/01/24 20:45 Clotrimazole/Betamethasone 1 Tube TOPICAL 1 applic BID JEANNIE Administration Protocol Doxepin HCl 75 mg 09/29/24 22:00 10/01/24 20:38 Doxepin Hcl 25 Mg Capsule PO 10/06/24 22:01 75 mg QHS JEANNIE Administration Doxepin HCl 50 mg 10/07/24 22:00 Doxepin Hcl 50 Mg Capsule PO QHS JEANNIE Doxepin HCl 25 mg 10/15/24 22:00 Doxepin Hcl 25 Mg Capsule PO 10/22/24 22:01 QHS [facility] Lidocaine 1 patch 09/29/24 22:00 10/01/24 19:25 Lidocaine 5% Patch TOPICAL Not Given 2200 [facility] Protocol Magnesium Citrate 300 ml 09/29/24 19:21 Magnesium Citrate 300 Ml PO DAILY PRN CONSTIPATION Pantoprazole Sodium 40 mg 10/01/24 18:00 10/01/24 18:03 Pantoprazole Sodium 40 Mg Tablet PO 40 mg DAILY JEANNIE Administration Polysaccharide Iron Complex 150 mg 10/01/24 10:00 10/01/24 08:02 Iron Polysaccharide Complex 150 Mg Capsule PO 150 mg DAILY JEANNIE Administration Senna/Docusate Sodium 1 tablet 09/29/24 22:00 10/01/24 20:46 Senna/Docusate Sodium 1 Tablet PO Not Given BID JEANNIE Sodium Chloride 10 - 40 ml 09/29/24 15:55 0.9% Saline Lock 10 Ml Syringe IV UD PRN SALINE FLUSH Tuberculin PPD 0.1 ml 10/07/24 10:00 Tuberculin,Purif.Prot.Deriv. 50 Tu/Ml Vial ID 10/07/24 10:01 X1 ONE Problem List Weight loss (Acute) Dysphagia (Acute) GERD (gastroesophageal reflux disease) (Acute) Insomnia (Acute) Anxiety (Acute) Multiple falls (Acute) Adult failure to thrive (Acute) Vital Signs Temp Pulse Resp BP Pulse Ox O2 Del Method 98.3 F 93 16 123/73 H 94 Room Air 10/01/24 09:00 10/01/24 09:00 10/01/24 09:00 10/01/24 09:00 10/01/24 09:00 10/01/24 10:00 Oxygen Delivery Method Room Air Weight: 46.72 kg Body Mass Index (BMI) 19.4 Sodium 143 mmol/L (133-145) 09/30/24 05:04 Potassium 3.4 mmol/L (3.3-5.1) 09/30/24 05:04 Chloride 107 mmol/L (98-108) 09/30/24 05:04 Carbon Dioxide 26.4 mmol/L (21.0-32.0) 09/30/24 05:04 Anion Gap 10 (5-15) 09/30/24 05:04 BUN 9 mg/dL (4-19) 09/30/24 05:04 Creatinine 0.76 mg/dL (0.70-1.20) 09/30/24 05:04 Est GFR (MDRD) Non-Af 83 (>60) 09/30/24 05:04 BUN/Creatinine Ratio 12.3 RATIO (10-20) 09/30/24 05:04 Glucose 106 mg/dL (70-99) H 09/30/24 05:04 Assessment/Plan: 1. Pain: acetaminophen 1000mg PO Q6H PRN pain 1-10 and lidocaine 5% patch 1 patch topical daily. No PRN doses given. Please continue to monitor for increase d pain, PRN usage and rash. 2. Bowel: senna/docusate 1T PO BID and magnesium citrate 300mL PO daily PRN constipation. No PRN doses given. Please continue to monitor for constipation and PRN usage. Resident has refused all senna/docusate doses. Please consider changing to PRN constipation. Thanks. Last documented bowel movement was 09/30/24. 3. GERD: pantoprazole 40mg PO daily. Please continue to monitor for S/S of GERD and diarrhea (BEERs). 4. Tinea Corporis: Lotrisone topical bid under right breast. Please continue to monitor. 5. Iron deficiency: Ferrex 150mg PO daily. Please continue to monitor hemoglobin (Last 10 g/dL), constipation, dark stools and iron studies (09/30/24). Assessment/Plan for indications treated with psychotropic medications: 1. Anxiety: buspirone 7.5mg PO BID. Please continue to monitor for anxiety, dizziness, drowsiness. Monitor for efficacy including resident symptoms, behaviors and indications of distress. Monitor for tolerability including mental status, cognition, excessive sleepiness, withdrawal or decreased participation in activities and decline in physical functioning. Maximize use of nonpharmacologic/behavioral interventions to facilitate dose reduction or discontinuation as appropriate. Please evaluate the appropriateness of GDR unless contraindicated. If appropriate, GDR should be attempted in 2 separate quarters within the first year of use or admission to TCU. If GDR attempted, monitor resident symptoms/behaviors. 2. Anxiety: clonazepam 0.5mg PO BID thru 10/06/24, then 0.25mg PO BID 10/07/24- 10/14/24, then 0.25mg PO QHS 10/15/24 - 10/22/24. Resident on GDR. Monitor for sedation, mental status and cognition. Monitor for falls (risk factor for falls) and implement fall prevention strategies. Monitor for respiratory depression. RR range since admission = 89-105. Monitor for efficacy including resident symptoms, behaviors, withdrawal and indications of distress. Monitor for worsened anxiety. Monitor for tolerability including mental status, cognition, excessive sleepiness, withdrawal or decreased participation in activities and decline in physical functioning. Maximize use of nonpharmacologic/behavioral interventions to facilitate dose reduction or discontinuation as appropriate. 3. Insomnia: doxepin 75mg PO QHS thru 10/06/24, then 50mg 10/07/24-10/14/24, then 25mg 10/15/24-10/22/24. Resident on GDR. Please continue to monitor for excessive daytime drowsiness, insomnia, dementia/delirium (BEERs), anticholinergic side effects (BEERs). Monitor for efficacy including resident symptoms, behaviors and indications of distress. Monitor for tolerability including mental status, cognition, excessive sleepiness, withdrawal or decreased participation in activities and decline in physical functioning. Maximize use of nonpharmacologic/behavioral interventions to facilitate dose reduction or discontinuation as appropriate Medical chart and medication regimen reviewed. The following medication irregularities or issues were identified: 1. Senna/docusate 1T PO BID. Resident has refused all senna/docusate doses. Please consider changing to PRN constipation. Thanks. Date Date of Note: 10/02/24 Documented by User: Dr. Harish Luis MD 10/02/24 10:09 TCU RX Drug Regimen Review Provider Comments Provider responsibility Provider Comments to Recommendations by Pharmacy
--- NOTE | 2024-10-02 08:52 | NURSING ---
Wanderguard placed on ankle d/t attempts to leave unit yesterday. Left VM to update , requested he return call.
--- NOTE | 2024-10-02 08:52 | NURSING ---
Wanderguard placed on ankle d/t attempts to leave unit yesterday. Left VM to update , requested he return call.
[2024-10-02 09:12] VITALS: BP 138/95; PULSE 105; RESP 16; TEMP 36.4; O2SAT 93
[2024-10-02] MEDS: Senna/Docusate Sodium 1 Tablet PO (09:16)
[2024-10-02] MEDS: Clotrimazole/Betamethasone 1 Tube 1 APPLIC TOPICAL (12:52)
--- NOTE | 2024-10-02 17:49 | PCM.PN.BLA ---
Progress Note Esophageal Clearance: Esophageal retention (lower esophagus retention - GI referral recommended) Physical Exam Const alert, oriented x3, no apparent distress and healthy appearing General Appearance: cooperative GI normal to inspection, nondistended, normoactive bowel sounds, soft to palpation, non-tender and non-distended Percussion: normal to percussion Rectal Exam: deferred Assessment & Plan Assessment/Plan (1) Dysphagia: QUALIFIERS: Dysphagia type: oropharyngeal phase Qualified Code(s): R13.12 - Dysphagia, oropharyngeal phase PLAN: The Differential diagnosis for her orophageal and esophageal dysphagia in the setting of weight loss. She has had Botox in the past for esophageal achalasia. Lysed late esophageal malignancy, myasthenia gravis, CVA, achalasia and COPD. She will undergo an upper endoscopy to evaluate the upper esophagus. NPO past midnight. She was explained alternatives, risk, benefits include not withstanding bleeding, infection, sepsis, perforation, need for return to . She will have ashok ASA of 3. Visit Charges Inpatient E&M: 09690 Subs Hosp L3
[2024-10-02 20:00] VITALS: PULSE 98; O2SAT 98
--- NOTE | 2024-10-03 10:20 | NURSING ---
[id number] Je[address] charge [address] dr[address] brunson with this rn in pt's room. dr. brunson explaining freq admissions d/t falls and pt stated, so? just give me the paper to sign and ill release you and them of responsibilities. dr. abdi wanting to prove to pt that unable to walk safely on own in room but pt refusing at this time to get up. pt explained that its documented that pt in for several falls to dr. diego hernandez and that has loss of balance where nursing had to catch pt from falling here. pt then wanting to sign out from dr. diego hernandez saying then you wont care what i do. dr brunson determined pt to be cognisant to sign self out jose manuel. Jeannine to call to discuss with him. enedina, unit support representative aware of situation and kacy daniel called to come talk with pt.
--- NOTE | 2024-10-03 10:20 | NURSING ---
[id number] Jeannine unit charge and dr. brunson with this rn in pt's room. dr. brunson explaining freq admissions d/t falls and pt stated, so? just give me the paper to sign and ill release you and them of responsibilities. dr. abdi wanting to prove to pt that unable to walk safely on own in room but pt refusing at this time to get up. pt explained that its documented that pt in for several falls to dr. diego hernandez and that has loss of balance where nursing had to catch pt from falling here. pt then wanting to sign out from dr. diego hernandez saying then you wont care what i do. dr brunson determined pt to be cognisant to sign self out jose manuel. Jeannine to call to discuss with him. enedina, business unit director aware of situation and kacy daniel called to come talk with pt.
--- NOTE | 2024-10-03 10:35 | NURSING ---
kacy in to discuss with pt and to attempt to call pts to go over pts refusal to stay. endo called and egd cancelled d/t pt refusing to do any proceedures. diet resumed but pt only wanting coffee. no answer at home to and message left for him to call back carol. pt aware that cannot leave without a ride set up.
--- NOTE | 2024-10-03 10:38 | NURSING ---
pa alarm going off and pt up not using walker now. field manager elías in to assist and when attmepted to guide pt where walker was stated, im fine! dont touch me!'
--- NOTE | 2024-10-03 10:38 | NURSING ---
pa alarm going off and pt up not using walker now. stratigrapher elías in to assist and when attmepted to guide pt where walker was stated, im fine! dont touch me!'
--- NOTE | 2024-10-03 14:42 | DS.PCM_ITS ---
Providers Date of Admission: 09/29/24 Primary Care Physician: Dr. Harish Luis MD Consultations 10/01/24 07:22 Consult: Gastroenterology Routine Consulting Provider: Lawrence Gastroenterm[facility] Reason for Consult: Esophageal retention per speech therapy. EMERGENT Consult: No MD Notified: Yes Date Notified: 10/01/24 Time Notified: 07:22 Method of Notification: Text Reason For Visit: FAILURE TO THRIVE AND FREQUENT FALLS Diagnosis Discharge Diagnosis (1) Dysphagia: Status: Acute Code(s): R13.10 - Dysphagia, unspecified Qualifiers: Dysphagia type: oropharyngeal phase Qualified Code(s): R13.12 - Dysphagia, oropharyngeal phase Plan 74 year old female with below past medical history hospitalized for falls, failure to thrive, admitted to TCU with debility, here for rehabilitation, strengthening, prior to discharge home with . * Debility - PT/OT. * Dysphagia - ST. * Pain - Tylenol 1000mg q6 prn pain (1-10), Lidoderm 1 patch td daily. * Bowel - senna/colace 1 tablet bid, Magnesium citrate 300mL daily prn. * Adult immunization - Administer pneumonia vaccine, covid vaccine, flu vaccine as appropriate. * DVT prophylaxis - Hold, frequent falls. The following psychotropic medication was present on admission: Buspar 7.5mg bid. Psychotropic medication therapy is indicated for a diagnosis of: Anxiety. Based on my clinical evaluation, continuation of the medication is necessary at this time. Gradual dose reduction plan (select one): ____ GDR will be attempted. Will monitor patient symptoms and behaviors in response to GDR. __x__ GRD contraindicated. Reason contraindicated: stable chronic half-way use. The following psychotropic medication was present on admission: Clonazepam 0.5mg bid. Psychotropic medication therapy is indicated for a diagnosis of: Anxiety. Based on my clinical evaluation, continuation of the medication is necessary at this time. Gradual dose reduction plan (select one): __x__ GDR will be attempted. Will monitor patient symptoms and behaviors in response to GDR. ____ GRD contraindicated. Reason contraindicated: The following psychotropic medication was present on admission: Doxepin 75mg qhs. Psychotropic medication therapy is indicated for a diagnosis of: Insomnia. Based on my clinical evaluation, continuation of the medication is necessary at this time. Gradual dose reduction plan (select one): __x__ GDR will be attempted. Will monitor patient symptoms and behaviors in response to GDR. ____ GRD contraindicated. Reason contraindicated: Medications at Discharge Home Medications doxepin 150 mg capsule 150 mg PO QHS ANXIETY 30 days #30 caps 09/22/24 omeprazole 40 mg capsule,delayed release 40 mg PO DAILY GERD 30 days #30 caps 09/22/24 lidocaine 5 % topical patch 1 patch topical 2200 Pain #0 ea 09/29/24 melatonin 3 mg tablet 3 mg PO QHS PRN PRN Insomnia #0 tabs 09/29/24 sennosides 8.6 mg-docusate sodium 50 mg tablet (Stimulant Laxative Plus) 2 tab PO BID PRN PRN Constipation #0 tabs 09/29/24 Hospital Course Operations None Procedures None Summary of Care Provided Minutes Spent on Discharge: 35 Hospital Course: 74 year old female with below past medical history hospitalized for falls, failure to thrive, admitted to TCU with debility, here for rehabilitation, strengthening, prior to discharge home with . Jacque discharge AGAINST MEDICAL ADVICE. Physical Exam Const alert General Appearance: cooperative HEENT normocephalic Eyes PERRL and EOMs intact bilaterally Neck supple, no JVD and no carotid bruits Resp normal respiratory effort, normal air movement and clear to auscultation bilaterally Cardio regular rate and regular rhythm GI normal to inspection, nondistended, normoactive bowel sounds, non-tender and non-distended Extremity normal capillary refill General Extremity: Negative for edema Skin no rashes or lesions noted General Skin Exam: no breakdown Psych affect normal Appearance: appropriate Medical Records Data Medical Nutrition Assessment Dietitian: Malnutrition Criteria Met Start: 10/01/24 11:57 Freq: Status: Active Protocol: Document 10/01/24 11:57 MARLENE (Rec: 10/01/24 11:57 MARLENE [id number]) Nutrition Malnutrition Evidence of Yes Malnutrition Exists Malnutrition (severe Chronic ): Evidenced By Suboptimal Energy Intake (Severe),Weight Loss (Severe) Clinical Problem Chronic Disease or Condition Related Malnutrition Etiology related to issues w/ dysphagia/impaired dentition requiring modified consistency of food and inadequate energy intake Signs/Symptoms as evidenced by po intake meeting <75% of est nutritional needs and unintended wt loss of ~18% x 6-7 months; BMI 19.5 Status Active Problem Recommendation Dietitian Continue liberal regular diet - consistency per SALES ROUTE DRIVER - d Recommendations/ /t signs and symptoms of malnutrition Changes Continue Ensure Plus High Protein tid w/ meals for increased nutrition if consumed Rec consider appetite stimulant to help encourage increased po intake Weight / BMI Weight Weight: 46.72 kg Body Mass Index (BMI) 19.4 ABG / Lab / Microbiology Data 10/02/24 05:06 09/30/24 05:04 Microbiology: Microbiology 09/30/24 14:30 Stool Stool Occult Blood (STEPHANIE) - Final D/C Instructions Discharge Activity: Return to Normal Activity Weight Bearing Status: Weight bearing as tolerated Call your doctor if you observe: Fever of 101 or Higher, Inability to urinate, Inability to have a bowel movement, Shortness of breath, Dizziness, Fainting spells, Swelling in the ankles, Chest pain and Uncontrolled pain DC O2, CPAP, BIPAP Needs Home O2 Discharge instructions: No Additional Instructions: Jacque discharge AGAINST MEDICAL ADVICE. Meaningful Use Info Meaningful Use Meaningful Use Diagnoses (Choose all that apply): None applicable Discharge Plan Admission Admit Date/Time: 09/29/24 15:45 Primary Reason for Your Visit: Debility. Attending Provider: Harish Luis Chi Primary Care Provider: Harish Luis Chi Instructions Additional Instructions / Restrictions: Jacque discharge AGAINST MEDICAL ADVICE. Discharge Orders/Prescriptions Prescriptions: Discontinued buspirone 7.5 MG tablet 7.5 mg PO BID clonazepam 1 MG tablet 0.5 mg PO BID 14 Days Qty: 14 0RF Rx Instructions: Please cut back to 0.5 mg BID and follow closely with PCP to have directed taper off given already on buspirone regimen also. alum-mag hydroxide-simeth [Mag-Al Plus Extra Strength] 400-400-40 mg/5 mL Suspension 30 ml PO Q6H PRN PRN (Reason: Gastric Burning) Qty: 0 0RF acetaminophen 325 mg Tablet 650 mg PO Q4H PRN PRN (Reason: Fever, pain -12/26) Qty: 0 0RF No Action omeprazole 40 mg capsule,delayed release(DR/EC) 40 mg PO DAILY 30 Days Qty: 30 0RF Patient Comments: pt states she take the med once a day but not every day doxepin 150 mg capsule 150 mg PO QHS 30 Days Qty: 30 0RF Rx Instructions: Given notable encephalopathy, recurrent aspiration issues, decrease to 150 mg q HS and with PCP direction taper dose over the next several weeks. lidocaine 5 % Adhesive Patch,Medicated 1 patch topical 2199 Qty: 0 0RF Protocol: *Topical Application Instructions APPLICATION INSTRUCTIONS: back melatonin 3 mg Tablet 3 mg PO QHS PRN PRN (Reason: Insomnia) Qty: 0 0RF sennosides-docusate sodium [Stimulant Laxative Plus] 8.6-50 mg Tablet 2 tab PO BID PRN PRN (Reason: Constipation) Qty: 0 0RF Referrals / Follow Up: Harish Luis Chi, MD [Primary Care Provider] - Disposition Disposition (needs filled in before D/C Order can be placed): Against Medical Advice
--- NOTE | 2024-10-03 14:53 | NURSING ---
1440 pt out at desk saying my ride is dropping off her daughter then is going to be at front door. pt put in wc. ama form went over by kacy and pt signed. down to main entrance via tcu staff and kacy to explain to friend situation.
--- NOTE | 2024-10-03 15:14 | CASEMGMT ---
Social Work MASSIEL notified by nursing that pt is requesting to DC, and Dr. Luis spoke with pt, and pt still adamant about DC. Dr. Luis documented that pt currently has capacity to make her own decisions and can elect to leave AMA; pt fired Dr. Luis as TCU Dr and PCP. SW collaborated with Charge Nurse, floor nurse, Director or TCU and security trainer Management for entirety of incident. Reviewed policies and since pt has capacity, per the MD, the pt can choose to DC, regardless if HCPOA does not agree. - SW in room multiple times and spent extensive time speaking with pt. Pt adamant on discharging home today. SW left VM with requesting call back. SW assisted nursing with attempting to redirect pt and encourage to accept care. Pt continued to refuse. and dtr presented to pt's room with this worker. SW facilitated conversation. All parties verbally aggressive, engaging in derogatory remarks. SW continued to redirect to focus of conversation with pt's wish to DC. SW showed pt calendar to offer when insurance would likely issue DC date - 10/09, if pt would be agreeable to remain until then. agreed to take pt home at that time. Pt denied. Pt remained adamant on DC today and remained adamant on not taking pt home. SW and family attempted to explained goals of care, ie. medication tapering, strengthening to reduce risk of falls. Reviewed risk of DC vs benefit of staying. Pt couldn't self-identify risks of leaving. SW noted that pt fired PCP and provided pt with Provider Directory. Educated to the risk of not having PCP for medications and follow up for care. Attempted offering to make PCP appt for pt, but denied to select new PCP stating I will worry about that when I get home. Pt voiced she wanted to go home to see her pets and vape again. SW offered, if pt is agreeable, to have bring pets in for a visit Sunday, and pt remain in TCU and participate in care. agreed. Pt denied. Focused on wanting to return home. and dtr refused to transport home. Pt denied all offered interventions. Insistent on leaving. Pt remains her own guardian and can make her own decision and leave AMA. SW excused and dtr from room as conversation was not productive. SW stated if pt can find someone to transport her, she can leave AMA. - SW stated she has a friend waiting for her at the main entrance. SW had pt sign AMA forms. Copy provided to pt. Copy placed on chart. MASSIEL escorted pt and LESSON INSTRUCTOR to main entrance. Alerted security for precaution. MASSIEL introduced self and role to friend, identified as Fatemeh, pt's hairdresser. MASSIEL educated Fatemeh to pt leaving AMA. Fatemeh unaware and attempted to talk to pt into staying to continue with care, but pt insistent on leaving and got herself into the friend's car. Fatemeh asked for husbands phone number to alert him of transport. MASSIEL provided. Friend appreciative. Pt left without incident. - [facility] you! [facility] Office to notify them of pt leaving AMA and pt and being verbally aggressive with concerns of allowing pt to be in the home. MASSIEL left detailed referral with Pablo at [facility]PS. Narda Emanuel MSW VULCANIZER RUBBER PLATE
--- NOTE | 2024-10-03 15:14 | CASEMGMT ---
Social Work MASSIEL notified by nursing that pt is requesting to DC, and Dr. Luis spoke with pt, and pt still adamant about DC. Dr. Luis documented that pt currently has capacity to make her own decisions and can elect to leave AMA; pt fired Dr. Luis as TCU Dr and PCP. SW collaborated with Charge Nurse, floor nurse, Director or TCU and heel reducer Management for entirety of incident. Reviewed policies and since pt has capacity, per the MD, the pt can choose to DC, regardless if HCPOA does not agree. - SW in room multiple times and spent extensive time speaking with pt. Pt adamant on discharging home today. SW left VM with requesting call back. SW assisted nursing with attempting to redirect pt and encourage to accept care. Pt continued to refuse. and dtr presented to pt's room with this worker. SW facilitated conversation. All parties verbally aggressive, engaging in derogatory remarks. SW continued to redirect to focus of conversation with pt's wish to DC. SW showed pt calendar to offer when insurance would likely issue DC date - 10/09, if pt would be agreeable to remain until then. agreed to take pt home at that time. Pt denied. Pt remained adamant on DC today and remained adamant on not taking pt home. SW and family attempted to explained goals of care, ie. medication tapering, strengthening to reduce risk of falls. Reviewed risk of DC vs benefit of staying. Pt couldn't self-identify risks of leaving. SW noted that pt fired PCP and provided pt with Provider Directory. Educated to the risk of not having PCP for medications and follow up for care. Attempted offering to make PCP appt for pt, but denied to select new PCP stating I will worry about that when I get home. Pt voiced she wanted to go home to see her pets and vape again. SW offered, if pt is agreeable, to have bring pets in for a visit Sunday, and pt remain in TCU and participate in care. agreed. Pt denied. Focused on wanting to return home. and dtr refused to transport home. Pt denied all offered interventions. Insistent on leaving. Pt remains her own guardian and can make her own decision and leave AMA. SW excused and dtr from room as conversation was not productive. SW stated if pt can find someone to transport her, she can leave AMA. - SW stated she has a friend waiting for her at the main entrance. SW had pt sign AMA forms. Copy provided to pt. Copy placed on chart. MASSIEL escorted pt and CHANGE MANAGEMENT MANAGER to main entrance. Alerted security for precaution. MASSIEL introduced self and role to friend, identified as Fatemeh, pt's hairdresser. MASSIEL educated Fatemeh to pt leaving AMA. Fatemeh unaware and attempted to talk to pt into staying to continue with care, but pt insistent on leaving and got herself into the friend's car. Fatemeh asked for husbands phone number to alert him of transport. MASSIEL provided. Friend appreciative. Pt left without incident. - [facility] Thank you! [facility]iff's Office to notify them of pt leaving AMA and pt and being verbally aggressive with concerns of allowing pt to be in the home. MASSIEL left detailed referral with Pablo at [facility]. Narda Emanuel MSW MINE SURVEYOR
--- NOTE | 2024-10-07 11:02 | MDS.RN ---
Information for the MDS was obtained from review of the clinical record, interview of resident, staff, and direct observation of resident?s care.
--- NOTE | 2024-10-07 11:02 | MDS.RN ---
Information for the MDS was obtained from review of the clinical record, interview of resident, staff, and direct observation of resident?s care.
== END 2024-10-03 14:00 | disposition left against medical advice (07) | DRG 178 ==
PROVIDERS: Admitting Provider Family Medicine Geriatric Medicine; PCP Family Medicine Geriatric Medicine; Referring Provider Family Medicine Geriatric Medicine; Visit Provider Family Medicine Geriatric Medicine
DX: J69.0 Pneumonitis due to inhalation of food and vomit (principal); E44.1 Mild protein-calorie malnutrition; Z68.1 Body mass index [BMI] 19.9 or less, adult; R62.7 Adult failure to thrive; F17.290 Nicotine dependence, other tobacco product, uncomplicated; B35.4 Tinea corporis; R13.12 Dysphagia, oropharyngeal phase; I10 Essential (primary) hypertension; E78.00 Pure hypercholesterolemia, unspecified; K21.9 Gastro-esophageal reflux disease without esophagitis; F41.9 Anxiety disorder, unspecified; K44.9 Diaphragmatic hernia without obstruction or gangrene; K58.9 Irritable bowel syndrome, unspecified; Z86.16 Personal history of COVID-19; G47.00 Insomnia, unspecified; Z79.899 Other long term (current) drug therapy; Z86.711 Personal history of pulmonary embolism; R29.6 Repeated falls
CPT/HCPCS: 36415; 74230; 80048; 82274; 83540; 83550; 85014; 85018; 85025; 92507; 92523; 92526; 92610; 92611; 97110; 97116; 97162; 97166; 97530; 97802

== ENCOUNTER 2025-01-02 16:11 | Emergency (ER) | payer MEDICARE, SELFPAY ==
[2025-01-02 16:11] VITALS: BP 136/88; PULSE 91; RESP 18; TEMP 37.1; O2SAT 98
[2025-01-02 18:11] VITALS: BP 138/96; PULSE 78; RESP 15; O2SAT 96
[2025-01-02] MEDS: DiphenhydrAMINE 50 MG/ML Syringe 25 MG IV (18:22)
--- OUTSIDE RECORDS SUMMARY | 2025-01-02 18:46 | XMS RPT_ITS | CCD ---
Author Organization [facility] Care Team Providers Care Chiropractic Neurologist Name Role Phone Dr. Harish Luis Chi [...] Attending Provider Dr. Sondra Rooney Referring Provider [phone] Sheyla Slade Emergency Provider Dr. Nallely Mccann Other Provider Dr. Zia Posey Admit Provider Dr. Zia Posey Attending Provider Dr. Zia Poesy Other Provider Dr. Nallely Mccann Attending Provider Dr. Harish Luis Chi Primary Care Provider [phone] Armando Miranda Emergency Provider [phone] Helena Ann Admit Provider Dr. Helena Ann Attending Provider Dr. Helena Ann Other Provider Dr. Jesse Camejo Attending Provider Dr. Jesse Camejo Other Provider Dr. Jesse Camejo Referring Provider Tessa, Dr. Levi Attending Provider [phone] Rivka Lombardi Attending Provider Toby GUIDO, Dr. Harish Flores Primary Care Provider [phone] Toby GUIDO, Dr. Harish Flores Attending Provider Toby GUIDO, Dr. Harish Flores Referring Provider Cindy PLEITEZ, Dr. Villatoro Emergency Provider Toby GUIDO, Dr. Harish Flores Primary Care Provider Cindy PLEITEZ, Dr. Villatoro Attending Provider Toby GUIDO, Dr. Harish Flores Attending Provider Toby GUIDO, Dr. Harish Flores Referring Provider Elio GUIDO, Dr. Ngo Emergency Provider Kenzie PLEITEZ, Dr. Beaulieu Admit Provider [phone] Dr. Christofer Espino DO Attending Provider Kenzie PLEITEZ, Dr. Beaulieu Other Provider Dennis GUIDO, Dr. Vanegas Emergency Provider [phone] de Addi PLEITEZ, Dr. Silva Admit Provider Unavail able de Addi DO, Dr. Silva Attending Provider Unav ailable Dennis GUIDO, Dr. Vanegas Emergency Provider [phone] de Addi DO, Dr. Silva Admit Provider Unavail able de Addi DO, Dr. Silva Other Provider Unavail able Erin GUIDO, Dr. Anastasia Nair Attending Provider Erin GUIDO, Dr. Anastasia Nair Other Provider Bobby PLEITEZ, Dr. Moraes Emergency Provider Erin GUIDO, Dr. Anastasia Nair Admit Provider Valerie GUIDO, Dr. Silva Attending Provider Unavailbettie Padilla MD, Dr. Silva Other Provider Unavailable Toby GUIDO, Dr. Harish Flores Primary Care Provider Toby GUIDO, Dr. Harish Flores Attending Provider Toby GUIDO, Dr. Harish Flores Referring Provider Elio GUIDO, Dr. Ngo Emergency Provider Kenzie PLEITEZ, Dr. Beaulieu Admit Provider Kenzie PLEITEZ, Dr. Beaulieu Attending Provider Kenzie PLEITEZ, Dr. Beaulieu Other Provider Dennis GUIDO, Dr. Vanegas Emergency Provider de Addi PLEITEZ, Dr. Silva Admit Provider Unavail able Justice DO, Dr. Silva Other Provider Unavail able Erin GUIDO, Dr. Anastasia Nair Attending Provider Erin GUIDO, Dr. Anastasia Nair Other Provider Bobby PLEITEZ, Dr. Moraes Emergency Provider Erin GUIDO, Dr. Anastasia Nair Admit Provider Valerie GUIDO, Dr. Silva Attending Provider Unavailbettie Padilla MD, Dr. Silva Other Provider Unavailable Toby GUIDO, Dr. Harish Flores Admit Provider Toby GUIDO, Dr. Harish Flores Other Provider Gladys Suarez Attending Provider Tessa PLEITEZ, Dr. Levi Attending Provider Anastasia Khan Admitting Unavailable Anastasia Khan Consulting Unavailable Harish Luis Chi Primary Care Unavailable Ricardo Padilla Attending Unavailable Ricardo Padilla Consulting Unavailable Ricardo Justice Consulting Unavailable Ricardo Justice Attending Unavailable Harish Luis Chi Primary Care Unavailable Ricardo Justice Admitting Unavailable Anastasia Khan Attending Unavailable Anastasia Khan Consulting Unavailable Christofer Espino Consulting Unavailable Christofer Espino Attending Unavailable Christofer Espino Admitting Unavailable Toby, Harish Chi Primary Care Unavailable White, Anastasia L Consulting Unavailable White, Anastasia L Admitting Unavailable Toby, Harish Chi Primary Care Unavailable Ricardo Padilla Attending Unavailable Gurmeet Zarate Attending Unavailable Toby, Harish Chi Primary Care Unavailable Toby, Harish Chi Referring Unavailable Toby, Harish Chi Primary Care Unavailable Toby, Harish Chi Attending Unavailable Toby, Harish Chi Referring Unavailable Toby, Harish Chi Primary Care Unavailable Toby, Harish Chi Attending Unavailable Irving White Attending Unavailable Toby, Harish Chi Primary Care Unavailable Toby, Harish Chi Referring Unavailable Toby, Harish Chi Primary Care Unavailable Toby, Harish Chi Attending Unavailable Toby, Harish Chi Referring Unavailable Toby, Harish Chi Primary Care Unavailable Toby, Harish Chi Consulting Unavailable Toby, Harish Chi Admitting Unavailable Gladys Anaya Attending Unavailable FriendGurmeet Attending Unavailable WhiteAnastasia L Attending Unavailable Toby, Harish Chi Primary Care Unavailable WhiteAnastasia L Attending Unavailable Toby, Harish Chi Primary Care Unavailable Kalpesh, Zia Attending Unavailable Xu Macias Referring Unavailable Kalpesh, Zia Admitting Unavailable Kalpesh, Zia Consulting Unavailable Toby, Harish Chi Primary Care Unavailable Toby, Harish Chi Attending Unavailable Toby, Harish Chi Primary Care Unavailable Kalpesh, Zia Consulting Unavailable Rafita Siddiqui Attending Unavailable Xu Macias Referring Unavailable Kalpesh, Zia Admitting Unavailable Christofer Espino Attending Unavailable Christofer Espino Admitting Unavailable Toby, Harish Chi Primary Care Unavailable Ricardo Justice Admitting Unavailable Ricardo Justice Consulting Unavailable Anastasia Khan Attending Unavailable Toby, Harish Chi Primary Care Unavailable Toby, Harish Chi Attending Unavailable Toby, Harish Chi Referring Unavailable Toby, Harish Chi Primary Care Unavailable Toby, Harish Chi Admitting Unavailable Rafita Siddiqui Attending Unavailable Rafita Siddiqui Consulting Unavailable NICHOL CASAREZ Attending Unavailable SHERMAN PASTRANA Referring Unavailable ALESHA BOOGIE Primary Care Unavailable SHERMAN PASTRANA Attending Unavailable ALESHA BOOGIE Primary Care Unavailable Allergies Allergy Classification Reported Allergen(s) Allergy Type Date of Onset Reaction(s) Facility (20 sources) Penicillins; Translations: [Penicillins] Allergy to substance 0 [facility] (13 sources) HYDROcodone Drug Allergy 3 [facility], [facility] (1 source) Acetaminophen / HYDROcodone; Translations: [HYDROCODONE-ACET AMINOPHEN] Drug Allergy 5 [facility] Repository Medications Current Medications Medication Drug Class(es) Dates Sig (Normalized) Sig (Original) Alum-Mag Hydroxide-Simeth (Mag-Al Plus Extra Strength) 400-400-40 mg/5 mL Suspension (1 source) Start: 09-29-2024 take 1 mL by mouth every six hours as needed Alum-Mag Hydroxide-Simeth (Mag-Al Plus Extra Strength) 400-400-40 mg/5 mL Suspension Active 30 mL PO EVERY 6 HOURS NEEDED as needed for Gastric Burning 0 September 29, 2024 12:00am cyclobenzaprine hydrochloride 10 mg oral tablet (5 sources) Muscle Relaxant Start: 02-19-2020 take 10 mg by mouth three times daily as needed Cyclobenzaprine Active 10 MG PO 3 TIMES DAILY NEEDED February 19, 2020 8:33am Do not take if patient feels dizzy or lightheaded docusate sodium 50 mg / sennosides, chcf 8.6 mg oral tablet (20 sources) Start: 09-29-2024 Start: 09-29-2024 Sennosides-Doc usate Sodium (Stimulant Laxative Plus) 8.6-50 mg Tablet Active 2 {tbl} PO TWICE DAILY NEEDED as needed for Constipation 0 0 September 29, 2024 12:00am Start: 10-14-2022 End: 07-30-2023 Start: 10-14-2022 End: 07-30-2023 Sennosides-Docusate Sodium ( Stool Softener-Stimulant Laxat) 8.6-50 mg Tablet Discontinued 2 {tbl} PO TWICE A DAY 0 30 0 October 14, 2022 12:00am July 30, 2023 4:02pm Take as scheduled for 3 days and then as needed for constipation Available oncu-tti-[id number]. doxepin hydrochloride 150 mg oral capsule (20 sources) Tricyclic Antidepressant Start: 09-22-2024 take 1 capsule by mouth once at bedtime Doxepin 150 mg capsule Active 150 mg PO AT BEDTIME 30 30 0 September 22, 2024 5:31pm ANXIETY Given notable encephalopathy, recurrent aspiration issues, decrease to 150 mg q HS and with PCP direction taper dose over the next several weeks. Start: 07-30-2023 End: 09-22-2024 Start: 07-30-2023 End: 09-22-2024 take 2 capsules by mouth at bedtime Doxepin 150 mg capsule Discontinued 300 mg PO AT BEDTIME July 30, 2023 12:00am September 22, 2024 5:31pm ANXIETY Start: 07-30-2023 take 1 capsule by mo [facility] at bedtime Doxepin 150 mg capsule Active 150 mg PO AT BEDTIME July 30, 2023 12:00am ANXIETY Start: 04-20-2022 End: 10-13-2022 Start: 04-20-2022 End: 10-13-2022 take 1 capsule [...] TABLET PO DAILY February 17, 2020 12:00am lidocaine 0.05 mg/mg medicated patch (2 sources) Antiarrhythmi c, Amide Local Anesthetic Start: 09-29-2024 Start: 09-29-2024 Lidocaine 5 % Adhesive Patch,Medicated Active 1 NMA TOPICAL 2200 0 0 September 29, 2024 12:00am Please contact the information source for Protocol details. melatonin 3 mg oral tablet (2 sources) Start: 09-29-2024 Start: 09-29-2024 take 1 tablet by norm at bedtime as needed Melatonin 3 mg Tablet Active 3 mg PO AT BEDTIME NEEDED as needed for Insomnia 0 0 September 29, 2024 12:00am metoclopramide 10 mg oral tablet (5 sources) Dopamine-2 Receptor Antagonist Start: 01-25-2020 take 10 mg by mouth four times daily Metoclopramide Hcl Active 10 MG PO 4 TIMES DAILY January 25, 2020 12:00am omeprazole 40 mg delayed release oral capsule (20 sources) Proton Pump Inhibitor Start: 09-21-2024 End: 09-22-2024 Start: 07-30-2023 take 1 capsule by mo [facility] once daily Omeprazole 20 mg capsule,delayed release(DR/EC) Active 20 mg PO DAILY July 30, 2023 12:00am GERD Start: 04-20-2022 End: 08-09-2022 topiramate 100 mg oral tablet (20 sources) [...] Sig (Original) acetaminophen 325 mg oral tablet (20 sources) Start: 09-29-2024 End: 10-03-2024 Start: 08-02-2022 End: 01-03-2024 Start: 08-02-2022 End: 01-03-2024 Acetaminophen 325 mg [...] 02, 2022 12:00am acetaminophen 325 mg / HYDRO codone bitartrate 5 mg oral tablet (20 sources) Opioid Agonist Start: 08-29-2023 End: 11-02-2023 Start: 08-29-2023 End: 11-02-2023 Hydrocodone-Acetaminophen 5- 325 mg tablet Discontinued 1 {tbl} PO EVERY 6 HOURS NEEDED as needed for Pain 10 3 0 August 29, 2023 November 02, 2023 8:55am Contusion of lower back Contusion of lower back and pelvis, initial encounter Start: 02-17-2020 take 1 tablet by [facility] three times daily Hydrocodone-Acetaminophen Active 1 TABLE T PO THREE TIMES A DAY February 17, 2020 12:00am Start: 09-01-2018 End: 09-06-2018 Start: 09-01-2018 End: 09-06-2018 Hydrocodone-Acetaminophen 1 TABLET [...] 06, 2018 12:08am acetaminophen 325 mg / oxyCO DONE hydrochloride 5 mg oral tablet (20 sources) Opioid Agonist Start: 06-20-2019 End: 06-27-2019 Start: 06-20-2019 End: 06-27-2019 Oxycodone-Acetaminophen 1 TA BLET tablet Discontinued 1 {tbl} PO EVERY 6 [...] 2019 12:02am apixaban 5 mg oral tablet (16 sources) Factor Xa Inhibitor Start: 08-04-2023 End: 08-27-2024 Start: 08-04-2023 End: 01-03-2024 take 2 tablets by mouth twice daily, then take 1 tablet by mouth twice daily Apixaban (Eliquis) 5 mg tablet Discontinued 5 mg PO TWICE A DAY 60 2 August 04, 2023 12:00am January 03, 2024 3:13pm take 2 tabs (10mg) twice daily till 08/06/2023, then continue with one tablet (5mg) twice daily bisacodyl 10 mg rectal suppo sitory (18 sources) Stimulant Laxative Start: 10-14-2022 End: 07-30-2023 busPIRone hydrochloride 7.5 mg oral tablet (20 sources) Start: 02-17-2020 End: 10-03-2024 ciprofloxacin 500 mg oral ta blet (18 sources) Quinolone Antimicrobial Start: 10-14-2022 End: 11-04-2022 citalopram 20 mg oral tablet (20 sources) Serotonin Reuptake Inhibitor Start: 08-09-2022 End: 10-13-2022 Start: 02-17-2020 take 20 mg by mouth once daily Citalopram Active 20 MG PO DAILY February 17, 2020 12:00am clonazePAM 1 mg oral tablet (20 sources) Benzodiazepine Start: 02-17-2020 End: 10-03-2024 Start: 02-17-2020 End: 09-22-2024 take 1 tablet by mouth three times daily Clonazepam 1 MG tablet Discontinued 1 mg PO THREE TIMES A DAY February 17, 2020 1:00am September 22, 2024 5:31pm ANXIETY dicyclomine hydrochloride 10 mg oral capsule (20 sources) Anticholinergic Start: 01-25-2020 End: 02-17-2020 doxycycline hyclate 100 mg o ral tablet (14 sources) Tetracycline-class Drug Start: 08-29-2024 End: 09-21-2024 Start: 01-04-2024 End: 08-27-2024 gabapentin 400 mg oral capsu le (20 sources) Anti-epileptic Agent Start: 04-20-2022 End: 01-03-2024 levoFLOXacin 500 mg oral tab let (20 sources) Quinolone Antimicrobial Start: 09-22-2024 End: 09-29-2024 Start: 08-02-2022 End: 10-13-2022 24 hr metoprolol succinate 2 5 mg extended release oral tablet (9 sources) beta-Adrenergic Concetta Start: 07-30-2023 End: 08-27-2024 metroNIDAZOLE 500 mg oral ta blet (20 sources) Nitroimidazole Antimicrobial Start: 09-22-2024 End: 09-29-2024 Start: 10-14-2022 End: 11-04-2022 naproxen 500 mg oral tablet (20 sources) Nonsteroidal Anti-inflammatory Drug Start: 10-13-2022 End: 03-17-2023 nystatin 002586 unt/ml oral suspension (19 sources) Polyene Antifungal Start: 08-08-2022 End: 08-15-2022 Start: 08-08-2022 End: 08-15-2022 take 1 mL by mouth twice daily Nystatin 100,000 unit/m L suspension Discontinued 10 mL PO TWICE A DAY 140 7 0 August 08, 2022 12:00August 14, 2022 12:00am August 15, 2022 12:04am swish and swallow Start: 08-08-2022 End: 08-15-2022 take 1 mL by mouth twice daily Nystatin Discontinued 1 0 ML PO TWICE A DAY 140 August 08, 2022 12:00am August 15, 2022 12:04am swish and swallow pantoprazole 40 mg delayed r elease oral tablet (20 sources) Proton Pump Inhibitor Start: 11-04-2022 End: 03-17-2023 Start: 08-09-2022 End: 10-13-2022 polyethylene glycol 3350 170 00 mg powder for oral solution (18 sources) Osmotic Laxative Start: 10-14-2022 End: 03-17-2023 predniSONE 20 mg oral tablet (13 sources) Start: 03-17-2023 End: 07-30-2023 Start: 03-17-2023 End: 07-30-2023 take 40 mg by mouth once daily Prednisone Discontinued 40 MG PO DAILY 10 March 17, 2023 1:00am July 30, 2023 4:02pm traMADol hydrochloride 50 mg oral tablet (13 sources) Opioid Agonist Start: 03-17-2023 End: 11-02-2023 traZODone hydrochloride 150 mg oral tablet (20 sources) Serotonin Reuptake Inhibitor Start: 02-17-2020 End: 08-09-2022 Start: 02-17-2020 End: 08-09-2022 take 1 tablet by mouth at bedtime Trazodone 150 MG tablet Discontinued 150 mg PO AT BEDTIME February 17, 2020 1:00am August 09, 2022 8:34am Start: 02-17-2020 take 300 mg by mouth at bedtim e Trazodone Active 300 MG PO AT BEDTIME February 17, 2020 12:00am (2 sources) Start: 09-29-2024 End: 10-03-2024 Start: 02-17-2020 End: 10-13-2022 Problems Active Problems Problem Classification Problem Date Documented Da te Episodic/Chronic Abdominal pain (20 sources) Generalized abdominal pain; Translations: [Generalized abdominal pain] 01-26-2020 Episodic Acute and unspecified renal failure (10 sources) Acute renal failure syndrome; Translations: [Acute kidney failure, unspecified] 07-30-2023 Episodic Anxiety disorders (4 sources) Anxiety; Translations: [Anxiety disorder, unspecified] Onset: 5 09-29-2024 Chronic Aspiration pneumonitis; food/vomitus (20 sources) Aspiration pneumonia; Translations: [Pneumonitis due to inhalation of food and vomit] Onset: 5 07-30-2023 Episodic Cardiac dysrhythmias (20 sources) Palpitations 01-23-2020 Episodic Complication of device; implant or graft (20 sources) Pain; Translations: [Pain due to other internal prosthetic devices, implants and grafts, initial encounter] 04-27-2022 Episodic E Codes: Fall (20 sources) Fall; Translations: [Unspecified fall, initial encounter] 07-24-2023 Episodic Esophageal disorders (20 sources) Gastroesophageal reflux disease; Translations: [Gastro-esophageal reflux disease without esophagitis] Onset: 5 01-23-2020 Chronic Essential hypertension (2 sources) Essential (primary) hypertension; Translations: [Essential (primary) hypertension] Onset: Chronic Fever of unknown origin (8 sources) Fever; Translations: [Fever, unspecified] Onset: 5 09-22-2024 Episodic Fluid and electrolyte disorders (10 sources) Dehydration; Translations: [Dehydration] 07-30-2023 Episodic Fracture of upper limb (20 sources) Closed fracture proximal humerus, greater tuberosity; Translations: [Displaced fracture of greater tuberosity of right humerus, initial encounter for closed fracture] 07-24-2023 Episodic Genitourinary symptoms and ill-defined conditions (20 sources) Retention of urine; Translations: [Retention of urine, unspecified] Onset: 5 10-13-2022 Episodic Headache; including migraine (20 sources) Migraine 01-23-2020 Chronic Immunizations and screening for infectious disease (2 sources) Encounter for immunization; Translations: [Encounter for screening for other viral diseases] Onset: Episodic Influenza (20 sources) Influenza; Translations: [Influenza due to unidentified influenza virus with other respiratory manifestations] 07-29-2022 Episodic Intestinal obstruction without hernia (20 sources) Paralytic ileus; Translations: [Paralytic ileus of small intestine and colon] 10-13-2022 Episodic Malaise and fatigue (20 sources) Asthenia; Translations: [Weakness] Onset: 5 02-17-2020 Episodic Mood disorders (20 sources) Depression 01-23-2020 Chronic Open wounds of head; neck; and trunk (20 sources) Patient encounter status; Translations: [Encounter for assessment of wound] 07-13-2017 Episodic Other acquired deformities (20 sources) Scoliosis of lumbar spine; Translations: [Scoliosis, unspecified] 07-15-2018 Chronic Other acquired deformities (20 sources) Scoliosis deformity of spine; Translations: [Scoliosis, unspecified] 02-17-2020 Chronic Other acquired deformities (1 source) Scoliosis, unspecified; Translations: [Scoliosis, unspecified scoliosis type, unspecified spinal region] Onset: 5 Chronic Other aftercare (8 sources) Long-term current use of 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; Translations: [terminologist (current) use of 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s] 08-19-2023 Episodic Other bone disease and musculoskeletal deformities (20 sources) Segmental and somatic dysfunction; Translations: [Segmental and somatic dysfunction of lumbar region] 02-17-2020 Episodic Other bone disease and musculoskeletal deformities (20 sources) Thoracic segmental dysfunction; Translations: [Segmental and somatic dysfunction of thoracic region] 02-17-2020 Episodic Other circulatory disease (9 sources) Low blood pressure; Translations: [Hypotension, unspecified] 07-30-2023 Episodic Other circulatory disease (1 source) Hypotension, unspecified; Translations: [Hypotension, unspecified] 07-30-2023 Episodic Other connective tissue disease (5 sources) Weakness of face muscles; Translations: [Facial weakness] 08-03-2022 Episodic Other connective tissue disease (5 sources) Facial weakness; Translations: [Facial weakness] 08-03-2022 Episodic Other connective tissue disease (18 sources) Recurrent falls ; Translations: [Repeated falls] 09-21-2024 Episodic Other connective tissue disease (2 sources) Repeated falls; Translations: [Repeated falls] Onset: 5 Episodic Other gastrointestinal disorders (20 sources) Dysphagia; Translations: [Dysphagia, unspecified] 08-11-2022 Episodic Other gastrointestinal disorders (8 sources) Oropharyngeal dysphagia; Translations: [Dysphagia, oropharyngeal phase] 09-22-2024 Episodic Other gastrointestinal disorders (1 source) Dysphagia, oropharyngeal phase; Translations: [Dysphagia, oropharyngeal phase] Onset: 5 Episodic Other gastrointestinal disorders (1 source) Dysphagia, unspecified; Translations: [Dysphagia, unspecified type] Onset: 5 Episodic Other hereditary and degenerative nervous system conditions (1 source) Other specified forms of tremor; Translations: [Action tremor] Onset: 5 Chronic Other injuries and conditions due to external causes (19 sources) Traumatic hematoma; Translations: [Other injury of unspecified body region, initial encounter] 09-03-2022 Episodic Other injuries and conditions due to external causes (20 sources) Closed injury of head; Translations: [Unspecified injury of head, initial encounter] 09-03-2022 Episodic Other injuries and conditions due to external causes (1 source) Unspecified injury of head, initial encounter; Translations: [Head injury, unspecified] 07-30-2023 Episodic Other lower respiratory disease (20 sources) Hypoxemia; Translations: [Hypoxemia] 07-29-2022 Episodic Other lower respiratory disease (7 sources) Hypoxemia; Translations: [Hypoxemia] 07-29-2022 Episodic Other lower respiratory disease (17 sources) Hypoxia; Translations: [Hypoxemia] 07-30-2023 Episodic Other lower respiratory disease (7 sources) Single lobe lung infiltrate; Translations: [Other nonspecific abnormal finding of lung field] 08-27-2024 Episodic Other nervous system disorders (20 sources) Disorder of brain; Translations: [Encephalopathy, unspecified] 01-12-2024 Chronic Other nervous system disorders (7 sources) Walking disability; Translations: [Difficulty in walking, not elsewhere classified] 09-22-2024 Chronic Other nervous system disorders (1 source) Difficulty in walking, not elsewhere classified; Translations: [Difficulty in walking, not elsewhere classified] Onset: 5 Chronic Other nervous system disorders (1 source) Other encephalopathy; Translations: [Other encephalopathy] Onset: 5 Chronic Other nervous system disorders (1 source) Encephalopathy, unspecified; Translations: [Encephalopathy, unspecified] Onset: 4 Chronic Other nervous system disorders (1 source) Other specified disorders of brain; Translations: [Cerebral ventriculomegaly] Onset: 5 Chronic Other nervous system disorders (2 sources) Other chronic pain; Translations: [Chronic low back pain, unspecified back pain laterality, unspecified whether sciatica present] Onset: 5 Chronic Other nervous system disorders (18 sources) Toxic metabolic encephalopathy; Translations: [Toxic metabolic encephalopathy] 11-12-2022 Episodic Other nervous system disorders (1 source) Unspecified abnormalities of gait and mobility; Translations: [Abnormality of gait] Onset: 5 Episodic Other non-traumatic joint disorders (2 sources) Pain in right shoulder; Translations: [Pain in right shoulder] Onset: 5 Episodic Other nutritional; endocrine; and metabolic disorders (7 sources) Adult failure to thrive syndrome; Translations: [Adult failure to thrive] 09-27-2024 Episodic Other nutritional; endocrine; and metabolic disorders (2 sources) Weight decreased; Translations: [Abnormal weight loss] 10-01-2024 Episodic Other nutritional; endocrine; and metabolic disorders (3 sources) Adult failure to thrive; Translations: [Adult failure to thrive] Onset: Episodic Other nutritional; endocrine; and metabolic disorders (1 source) Abnormal weight loss; Translations: [Abnormal weight loss] Onset: 5 Episodic Other screening for suspected conditions (not mental disorders or infectious disease) (20 sources) CT of abdomen abnormal; Translations: [Abnormal findings on diagnostic imaging of other abdominal regions, including retroperitoneum] Onset: 5 10-13-2022 Episodic Comment on above: Pneumatosis of right colon also seen in a CAT scan from 2019 Peripheral and visceral atherosclerosis (20 sources) Vascular insufficiency of intestine; Translations: [Vascular disorder of intestine, unspecified] 02-17-2020 Chronic Pulmonary heart disease (10 sources) Pulmonary embolism; Translations: [Other pulmonary embolism without acute cor pulmonale] 07-30-2023 Episodic Residual codes; unclassified (1 source) Altered mental status; Translations: [Altered mental status, unspecified] 11-01-2022 Episodic Residual codes; unclassified (1 source) Altered mental status, unspecified; Translations: [Altered mental status] 11-01-2022 Episodic Residual codes; unclassified (6 sources) Confusional state; Translations: [Disorientation, unspecified] 09-21-2024 Episodic Residual codes; unclassified (2 sources) Insomnia; Translations: [Insomnia, unspecified] 09-29-2024 Episodic Residual codes; unclassified (2 sources) Insomnia, unspecified; Translations: [Insomnia, unspecified] Onset: 5 Episodic Residual codes; unclassified (1 source) Disorientation, unspecified; Translations: [Disorientation, unspecified] Onset: 5 Episodic Residual codes; unclassified (1 source) Other amnesia; Translations: [Memory loss] Onset: Episodic Respiratory failure; insufficiency; arrest (adult) (20 sources) Respiratory failure; Translations: [Respiratory failure, unspecified, unspecified whether with hypoxia or hypercapnia] 07-29-2022 Episodic Screening and history of mental health and substance abuse codes (2 sources) Encounter for screening for depression; Translations: [Encounter for screening examination for other mental health and behavioral disorders] Onset: Episodic Septicemia (except in labor) (7 sources) Sepsis; Translations: [Sepsis, unspecified organism] 08-27-2024 Episodic Spondylosis; intervertebral disc disorders; other back problems (20 sources) Chronic low back pain; Translations: [Chronic low back pain] Onset: 5 01-23-2020 Episodic Comment on above: Has electrical stimu lator Sprains and strains (19 sources) Strain of neck muscle; Translations: [Strain of muscle, fascia and tendon at neck level, initial encounter] 09-03-2022 Episodic Superficial injury; contusion (20 sources) Contusion of lower back; Translations: [Contusion of lower back and pelvis, initial encounter] 09-06-2023 Episodic Unclassified (3 sources) Follow-up within PCP within 3-5 days. Unclassified (1 source) Other toxic encephalopathy; Translations: [Other toxic encephalopathy] Onset: 5 Unclassified (1 source) Chronic low back pain, unspecified back pain laterality, unspecified whether sciatica present; Translations: [Chronic low back pain, unspecified back pain laterality, unspecified whether sciatica present] Onset: 5 Urinary tract infections (8 sources) Acute urinary tract infection; Translations: [Urinary tract infection, site not specified] 01-03-2024 Episodic Past or Other Problems Problem Classification Problem Date Documented Da te Episodic/Chronic Other infections; including parasitic (1 source) Unspecified infectious disease; Translations: [Unspecified infectious disease] Onset: 08-29-2024 Episodic Pneumonia (except that caused by tuberculosis or sexually transmitted disease) (20 sources) Pneumonia; Translations: [Pneumonia, unspecified organism] Onset: 01-06-2024 07-29-2022 Episodic Residual codes; unclassified (1 source) Chills (without fever); Translations: [Chills (without fever)] Onset: 03-20-2024 Episodic Results Test Name Value Interpretation Reference Range Facility [id number] 12-30-2024 [id number] HNO ID: [id number] Author: NICHOL CASAREZ PT Service: ? Author Type: Physical Therapist Type: [id number] Filed: 12/30/2024 09:42 Note Text: [facility] Physical Therapy Plan of Care Certification Patient Name: Carol David : 1950 F #: [id number] Date: 12/29/2024 To: Sherman Pastrana APRN.CLEANER From Therapist: Nichol Casarez PT RE: Patient Certification/ Recertification Your review, approval and electronic signature are required in order to comply with Payor: [employer] / Plan: [facility] HMO / Product Type: HMO / regulations. The identified Physical Therapy PLAN OF CARE for the patient is as follows: M54.40 Low back pain with sciatica, sciatica laterality unspecified, unspecified back pain laterality, unspecified chronicity (primary encounter diagnosis) M54.50, G89.29 Chronic low back pain, unspecified back pain laterality, unspecified whether sciatica present M25.511, G89.29 Chronic right shoulder pain M41.9 Scoliosis, unspecified scoliosis type, unspecified spinal region PLAN OF CARE: Assessment: Carol David presents with diagnosis of LBP with sciatica, abnormality of gait, action tremor that interferes with walking, lifting (lifting a cup of coffee) . The patient presents with impairments in ADL's, gait, independence in exercise, joint mobility, overall function, patient reported outcome measures, posture, range of motion, strength, symptom management, and tissue tenderness. PROMIS? (Patient-Reported Outcomes Measurement Information System) scores were reviewed and identified as a rehabilitation concern. Prognosis for therapy is Fair due to: chronic nature of impairments, coping skills, clinical presentation, poor historian, memory deficits, limited tolerance to activity . The patient will benefit from skilled therapy services to meet the goals established for this plan of care as noted below. Classification Pain Mechanism Classification: Nociceptive Goals for Episode of Care: established 12/29/24 [place] in home exercise program. Patient will decrease pain to 1-2/10 with functional activities to allow patient to improve ambulation, transfers, and standing tolerance for ADLs. Patient will increase active ROM of R shoulder flexion to 150 degrees or greater to allow pt to to improve performance of ADLs. Perform standing for 5-10 minutes with decreased report of symptoms/pain in 6 weeks. Patient Goals: reduce R shoudler pain, reduce LBP, and reduce fall risk Time Frame for Goals and Treatment : 02/09/25 Planned Interventions, Frequency, and Duration: Current Frequency: 1x/week Duration: 6 weeks Total Number of Visits Planned: 6 Planned Treatment Interventions: Self-custodial management (44654), Gait Training (03509), Therapeutic activities (67841), Neuromuscular re-education (09594), Therapeutic exercise (27887), Manual therapy (11286) PLAN FOR NEXT VISIT: assess LBP, and possibly gait/amb. with SC, assess symptom response to R shoulder AAROM using [place]. Patient demonstrates fair understanding of plan of care and treatment. The above goals and plan of care were discussed and agreed upon by patient/family. For further details regarding this patient refer to the Physical Therapy electronically documented visit dated 12/29/2024. Provider Attestation I have reviewed the treatment plan for Carol David [facility]# [id number] for the period of 12/29/24 -- 02/09/25, established on 12/29/2024. Signature certifies the need for therapy services. Normal [facility] CNTHERAPYon 12-29-2024 CNTHERAPY OT/PT/Speech Visit ( PTWS) CAROL DAVID ([id number]) 1950 F Date Time Provider Department 12/29/24 2:00 PM NICHOL CASAREZ PTSIN Date Time Provider Department [place] 12/29/2024 2:00 PM [id number] CASAREZ PTSIN [place] Reason for Visit: PT Eval [727] Primary Visit Diagnosis:Low back pain with sciatica, sciatica laterality unspecified, unspecified back pain laterality, unspecified chronicity [M54.40] Other Visit Diagnoses:Chronic low back pain, unspecified back pain laterality, unspecified whether sciatica present [M54.50, G89.29] Chronic right shoulder pain [M25.511, G89.29] Scoliosis, unspecified scoliosis type, unspecified spinal region [M41.9] Allergies As of Date: 12/29/2024 Noted Allergy Reaction HYDROCODONE-ACETAMINOPHEN 12/11/2024 14 - Other: See Comments PENICILLINS 12/11/2024 2 - Rash Date Reviewed: 12/11/2024 Reviewed by: Sherman Pastrana APRN.CLEANER - Fully Assessed Prescriptions as of 12/30/2024 - busPIRone (BUSPAR) 7.5 mg tablet 7.5 mg two times a day. - metoprolol succinate ER (TOPROL XL) 25 mg 24 hr tablet Take 1 tablet by mouth once daily. - doxepin capsule 75 mg Take 1 capsule by mouth daily at bedtime. - clonazePAM (KLONOPIN) 0.5 mg tablet Take 1 tablet by mouth three times a day as needed for anxiety for up to 180 days. - omeprazole (PRILOSEC) 40 mg capsule Take 1 capsule by mouth daily before breakfast. - celecoxib (CELEBREX) 200 mg capsule Take 1 capsule by mouth once daily. Take with food Normal [facility] CNOVon 12-11-2024 CNOV Office Visit (INTMWS ) CAROL DAVID ([id number]) 1950 F [place] Date Time Provider Department 12/11/24 1:00 PM JENY PASTRANALance LONG During your visit today, we recorded the following information about you: Pulse Respiration Blood pressure Weight 91/minute 16/minute 124/82 41.7 kg Height 1.486 m Jeny PastranaES corona.CLEANER 12/11/2024 2:02 PM Signed Subjective Patient ID: Carol is a 74 year old female who presents for Establish Care. HPI The patient is a 74-year-old female with chronic low back and shoulder pain, gastroesophageal reflux disease, anxiety, and depression, presenting to establish care and for medication refills. Presents today to establish care with Alesha Boogie MD Previous PCP: Dr. Luis Last seen: one month ago, also recent hospital admission for debility and failure to thrive falls. Swallow study was completed mild AR. She was advised to decrease her dose of clonazepam and buspirone. She left AMA. See scanned documents. Former smoker 40 pack years Back Pain: - Carol David has chronic low back pain, previously managed with a spinal cord stimulator. - Carol tried gabapentin with no relief. - Carol has really bad scoliosis. - Carol denies recent falls since discharge from a recent hospital stay. Shoulder Pain: - Carol fractured her shoulder a few months ago; persistent pain. - Carol was last seen by an customer management specialist at [facility] 2 months ago; advised to take Motrin, which provided no relief. - No imaging performed; Carol was told surgery would require a lengthy recovery. - Carol denies current physical therapy for her shoulder. Anxiety and Depression: - Currently managed with clonazepam 1 mg TID and doxepin 75 mg daily. - Recent reduction in doxepin dosage by previous physician, leading to increased difficulty falling asleep. - Carol reports situational problems at home contributing to her anxiety and depression. - Carol previously saw a counselor, but is not currently in therapy. GERD: - Worsening symptoms, managed with prescription PPI - Carol has occasional dysphagia, particularly with certain foods like noodles. - Carol denies aspiration or feeling of getting food in her lungs. Cough: - Carol reports a chronic wet cough, described as congested. Currently vapes. Family History: - Carol's mother had heart disease, CVA, and diabetes. - Carol's father had cancer. Social History: - Carol is a former smoker, quit 9 years ago after 40 years of smoking half a pack per day. - Carol currently uses a vape with no nicotine. Medication Refills: - Carol requests refills for clonazepam and doxepin. ROS Cardiovascular: (+) palpitations Respiratory: (+) productive cough, (-) aspiration Gastrointestinal: (+) gastroesophageal reflux, (+) intermittent dysphagia Musculoskeletal: (+) shoulder pain, (+) low back pain, (-) falls Neurological: (+) arm weakness Psychiatric: (+) anxiety, (+) depressed mood, (+) insomnia Objective BP 124/82 Pulse 91 Resp 16 Ht 148.6 cm (4' 10.5) Wt 41.7 kg (91 lb 14.9 oz) SpO2 95% BMI 18.89 kg/m? Physical Exam Vitals and nursing note reviewed. Constitutional: Appearance: Normal appearance. HENT: Head: Normocephalic and atraumatic. Right Ear: Decreased hearing noted. Left Ear: Decreased hearing noted. Eyes: Conjunctiva/sclera: Conjunctivae normal. Neck: Thyroid: No thyroid mass or thyromegaly. Vascular: Normal carotid pulses. No carotid bruit. Cardiovascular: Rate and Rhythm: Normal rate and regular rhythm. Pulses: Carotid pulses are 2+ on the right side and 2+ on the left side. Radial pulses are 2+ on the right side and 2+ on the left side. Pulmonary: Effort: Pulmonary effort is normal. Breath sounds: Normal breath sounds. Musculoskeletal: Right lower leg: No edema. Left lower leg: No edema. Comments: +scoliosis Skin: General: Skin is warm and dry. Neurological: General: No focal deficit present. Mental Status: She is alert and oriented to person, place, and time. 1. Gastroesophageal reflux disease, unspecified whether esophagitis present (K21.9) - GERD symptoms worsening despite current PPI 2. Failure to thrive in adult (R62.7) 3. Debility (R53.81) 4. Frequent falls (R29.6) 5. Dysphagia, unspecified type (R13.10) - Recent hospitalization for frequent falls; no falls reported since discharge. - Dysphagia with occasional choking episodes. - Continue to use walker at home and cane when going out. 6. Anxiety (F41.9) 7. Insomnia, unspecified type (G47.00) - Anxiety and insomnia previously managed with clonazepam and doxepin. - Continue clonazepam at reduced dose as recommended at hospital discharge; educated on rationale for dose reduction. - Continue doxepin at current dose. This had already been reduced f (more content not included)... Normal [facility] Basic Metabolic Profile (BMP )on 10-28-2024 BUN Normal 4-19 [facility] Comment on above: Result Comment: Canc elled via OM: Order cancelled - Patient discharged Performed By: #### L 100.0100, L500.2500 ####[facility] [address] [facility] [address] BUN/CRE Normal 10-20 [facility] Comment on above: Result Comment: Canc elled via OM: Order cancelled - Patient discharged Performed By: #### L 100.0100, L500.2500 ####[facility] [address] [facility] [address] Calcium Normal 7.6-11.0 [facility] Comment on above: Result Comment: Canc elled via OM: Order cancelled - Patient discharged Performed By: #### L 100.0100, L500.2500 ####[facility] [address] [facility] [address] CL Normal 98-108 [facility] Comment on above: Result Comment: Canc elled via OM: Order cancelled - Patient discharged Performed By: #### L 100.0100, L500.2500 ####[facility] [address] [facility] [address] CO2 Normal 21.0-32.0 [facility] Comment on above: Result Comment: Canc elled via OM: Order cancelled - Patient discharged Performed By: #### L 100.0100, L500.2500 ####[facility] [address] [place], [address] CREAT,SERUM Normal 0.70-1.20 [facility] Comment on above: Result Comment: Canc elled via OM: Order cancelled - Patient discharged Performed By: #### L 100.0100, L500.2500 ####[facility] [address] [place], [address] eGFR Normal >60 [facility] Comment on above: Result Comment: Canc elled via OM: Order cancelled - Patient discharged Performed By: #### L 100.0100, L500.2500 ####[facility] [address] [place], [address] GAP Normal 5-15 [facility] Comment on above: Result Comment: Canc elled via OM: Order cancelled - Patient discharged Performed By: #### L 100.0100, L500.2500 ####[facility] [address] [place], [address] GLU Normal 70-99 [facility] Comment on above: Result Comment: Canc elled via OM: Order cancelled - Patient discharged Performed By: #### L 100.0100, L500.2500 ####[facility] [address] [place], [address] Potassium Normal 3.3-5.1 [facility] Comment on above: Result Comment: Canc elled via OM: Order cancelled - Patient discharged Performed By: #### L 100.0100, L500.2500 ####[facility] [address] [place], [address] Basic Metabolic Profile (BMP) Normal 133-145 [facility] Comment on above: Result Comment: Canc elled via OM: Order cancelled - Patient discharged Performed By: #### L 100.0100, L500.2500 ####[facility] [address] [place], [address] CBC W/Diff, Automatedon 08- Absolute Neut Normal 2.0-7.7 [facility] Comment on above: Result Comment: Canc elled via OM: Order cancelled - Patient discharged Performed By: #### L 100.0100, L500.2500 ####[facility] [address] [place], [address] HCT Normal 37-47 [facility] Comment on above: Result Comment: Canc elled via OM: Order cancelled - Patient discharged Performed By: #### L 100.0100, L500.2500 ####[facility] [address] [place], [address] HGB Normal 12.0-15.0 [facility] Comment on above: Result Comment: Canc elled via OM: Order cancelled - Patient discharged Performed By: #### L 100.0100, L500.2500 ####[facility] [address] [place], [address] MCH Normal 27.0-32.0 [facility] Comment on above: Result Comment: Canc elled via OM: Order cancelled - Patient discharged Performed By: #### L 100.0100, L500.2500 ####[facility] [address] [place], [address] MCHC Normal 32-36 [facility] Comment on above: Result Comment: Canc elled via OM: Order cancelled - Patient discharged Performed By: #### L 100.0100, L500.2500 ####[facility] [address] [place], [address] MCV Normal 81-99 [facility] Comment on above: Result Comment: Canc elled via OM: Order cancelled - Patient discharged Performed By: #### L 100.0100, L500.2500 ####[facility] [address] [place], [address] NEUT% Normal 47-70 [facility] Comment on above: Result Comment: Canc elled via OM: Order cancelled - Patient discharged Performed By: #### L 100.0100, L500.2500 ####[facility] [address] [place], [address] PLT Normal 150-450 [facility] Comment on above: Result Comment: Canc elled via OM: Order cancelled - Patient discharged Performed By: #### L 100.0100, L500.2500 ####[facility] [address] [place], [address] RBC Normal 4.2-5.4 [facility] Comment on above: Result Comment: Canc elled via OM: Order cancelled - Patient discharged Performed By: #### L 100.0100, L500.2500 ####[facility] [address] [place], [address] RDW CV Normal 11.6-14.6 [facility] Comment on above: Result Comment: Canc elled via OM: Order cancelled - Patient discharged Performed By: #### L 100.0100, L500.2500 ####[facility] [address] [place], [address] RDW SD Normal 35.1-43.9 [facility] Comment on above: Result Comment: Canc elled via OM: Order cancelled - Patient discharged Performed By: #### L 100.0100, L500.2500 ####[facility] [address] [place], [address] WBC Normal 4.4-11.0 [facility] Comment on above: Result Comment: Canc elled via OM: Order cancelled - Patient discharged Performed By: #### L 100.0100, L500.2500 ####[facility] [address] [place], [address] Basic Metabolic Profile (BMP )on 10-21-2024 BUN Normal 4-19 [facility] Comment on above: Result Comment: Canc elled via OM: Order cancelled - Patient discharged Performed By: #### L 100.0100, L500.2500 ####[facility] [address] [place], [address] BUN/CRE Normal 10-20 [facility] Comment on above: Result Comment: Canc elled via OM: Order cancelled - Patient discharged Performed By: #### L 100.0100, L500.2500 ####[facility] [address] [place], [address] Calcium Normal 7.6-11.0 [facility] Comment on above: Result Comment: Canc elled via OM: Order cancelled - Patient discharged Performed By: #### L 100.0100, L500.2500 ####[facility] [address] [place], [address] CL Normal 98-108 [facility] Comment on above: Result Comment: Canc elled via OM: Order cancelled - Patient discharged Performed By: #### L 100.0100, L500.2500 ####[facility] [address] [place], [address] CO2 Normal 21.0-32.0 [facility] Comment on above: Result Comment: Canc elled via OM: Order cancelled - Patient discharged Performed By: #### L 100.0100, L500.2500 ####[facility] [address] [place], [address] CREAT,SERUM Normal 0.70-1.20 [facility] Comment on above: Result Comment: Canc elled via OM: Order cancelled - Patient discharged Performed By: #### L 100.0100, L500.2500 ####[facility] [address] [place], [address] eGFR Normal >60 [facility] Comment on above: Result Comment: Canc elled via OM: Order cancelled - Patient discharged Performed By: #### L 100.0100, L500.2500 ####[facility] [address] [place], [address] GAP Normal 5-15 [facility] Comment on above: Result Comment: Canc elled via OM: Order cancelled - Patient discharged Performed By: #### L 100.0100, L500.2500 ####[facility] [address] [place], [address] GLU Normal 70-99 [facility] Comment on above: Result Comment: Canc elled via OM: Order cancelled - Patient discharged Performed By: #### L 100.0100, L500.2500 ####[facility] [address] [place], [address] Potassium Normal 3.3-5.1 [facility] Comment on above: Result Comment: Canc elled via OM: Order cancelled - Patient discharged Performed By: #### L 100.0100, L500.2500 ####[facility] [address] [place], [address] Basic Metabolic Profile (BMP) Normal 133-145 [facility] Comment on above: Result Comment: Canc elled via OM: Order cancelled - Patient discharged Performed By: #### L 100.0100, L500.2500 ####[facility] [address] [place], [address] CBC W/Diff, Automatedon 08-0 Absolute Neut Normal 2.0-7.7 [facility] Comment on above: Result Comment: Canc elled via OM: Order cancelled - Patient discharged Performed By: #### L 100.0100, L500.2500 ####[facility] [address] [place], [address] HCT Normal 37-47 [facility] Comment on above: Result Comment: Canc elled via OM: Order cancelled - Patient discharged Performed By: #### L 100.0100, L500.2500 ####[facility] [address] [place], [address] HGB Normal 12.0-15.0 [facility] Comment on above: Result Comment: Canc elled via OM: Order cancelled - Patient discharged Performed By: #### L 100.0100, L500.2500 ####[facility] [address] [place], [address] MCH Normal 27.0-32.0 [facility] Comment on above: Result Comment: Canc elled via OM: Order cancelled - Patient discharged Performed By: #### L 100.0100, L500.2500 ####[facility] [address] [place], [address] MCHC Normal 32-36 [facility] Comment on above: Result Comment: Canc elled via OM: Order cancelled - Patient discharged Performed By: #### L 100.0100, L500.2500 ####[facility] [address] [place], [address] MCV Normal 81-99 [facility] Comment on above: Result Comment: Canc elled via OM: Order cancelled - Patient discharged Performed By: #### L 100.0100, L500.2500 ####[facility] [address] [place], [address] NEUT% Normal 47-70 [facility] Comment on above: Result Comment: Canc elled via OM: Order cancelled - Patient discharged Performed By: #### L 100.0100, L500.2500 ####[facility] [address] [place], [address] PLT Normal 150-450 [facility] Comment on above: Result Comment: Canc elled via OM: Order cancelled - Patient discharged Performed By: #### L 100.0100, L500.2500 ####[facility] [address] [place], [address] RBC Normal 4.2-5.4 [facility] Comment on above: Result Comment: Canc elled via OM: Order cancelled - Patient discharged Performed By: #### L 100.0100, L500.2500 ####[facility] [address] [place], [address] RDW CV Normal 11.6-14.6 [facility] Comment on above: Result Comment: Canc elled via OM: Order cancelled - Patient discharged Performed By: #### L 100.0100, L500.2500 ####[facility] [address] [place], [address] RDW SD Normal 35.1-43.9 [facility] Comment on above: Result Comment: Canc elled via OM: Order cancelled - Patient discharged Performed By: #### L 100.0100, L500.2500 ####[facility] [address] [place], [address] WBC Normal 4.4-11.0 [facility] Comment on above: Result Comment: Canc elled via OM: Order cancelled - Patient discharged Performed By: #### L 100.0100, L500.2500 ####[facility] [address] [place], [address] Basic Metabolic Profile (BMP )on 10-14-2024 BUN Normal 4-19 [facility] Comment on above: Result Comment: Canc elled via OM: Order cancelled - Patient discharged Performed By: #### L 500.2500, L100.0100 ####[facility] [address] [place], [address] BUN/CRE Normal 10-20 [facility] Comment on above: Result Comment: Canc elled via OM: Order cancelled - Patient discharged Performed By: #### L 500.2500, L100.0100 ####[facility] [address] [place], [address] Calcium Normal 7.6-11.0 [facility] Comment on above: Result Comment: Canc elled via OM: Order cancelled - Patient discharged Performed By: #### L 500.2500, L100.0100 ####[facility] [address] [place], [address] CL Normal 98-108 [facility] Comment on above: Result Comment: Canc elled via OM: Order cancelled - Patient discharged Performed By: #### L 500.2500, L100.0100 ####[facility] [address] [place], [address] CO2 Normal 21.0-32.0 [facility] Comment on above: Result Comment: Canc elled via OM: Order cancelled - Patient discharged Performed By: #### L 500.2500, L100.0100 ####[facility] [address] [place], [address] CREAT,SERUM Normal 0.70-1.20 [facility] Comment on above: Result Comment: Canc elled via OM: Order cancelled - Patient discharged Performed By: #### L 500.2500, L100.0100 ####[facility] [address] [place], [address] eGFR Normal >60 [facility] Comment on above: Result Comment: Canc elled via OM: Order cancelled - Patient discharged Performed By: #### L 500.2500, L100.0100 ####[facility] [address] [place], [address] GAP Normal 5-15 [facility] Comment on above: Result Comment: Canc elled via OM: Order cancelled - Patient discharged Performed By: #### L 500.2500, L100.0100 ####[facility] [address] [place], [address] GLU Normal 70-99 [facility] Comment on above: Result Comment: Canc elled via OM: Order cancelled - Patient discharged Performed By: #### L 500.2500, L100.0100 ####[facility] [address] [place], [address] Potassium Normal 3.3-5.1 [facility] Comment on above: Result Comment: Canc elled via OM: Order cancelled - Patient discharged Performed By: #### L 500.2500, L100.0100 ####[facility] [address] [place], [address] Basic Metabolic Profile (BMP) Normal 133-145 [facility] Comment on above: Result Comment: Canc elled via OM: Order cancelled - Patient discharged Performed By: #### L 500.2500, L100.0100 ####[facility] [address] [place], [address] CBC W/Diff, Automatedon 07-2 Absolute Neut Normal 2.0-7.7 [facility] Comment on above: Result Comment: Canc elled via OM: Order cancelled - Patient discharged Performed By: #### L 500.2500, L100.0100 ####[facility] [address] [place], [address] HCT Normal 37-47 [facility] Comment on above: Result Comment: Canc elled via OM: Order cancelled - Patient discharged Performed By: #### L 500.2500, L100.0100 ####[facility] [address] [place], [address] HGB Normal 12.0-15.0 [facility] Comment on above: Result Comment: Canc elled via OM: Order cancelled - Patient discharged Performed By: #### L 500.2500, L100.0100 ####[facility] [address] [place], [address] MCH Normal 27.0-32.0 [facility] Comment on above: Result Comment: Canc elled via OM: Order cancelled - Patient discharged Performed By: #### L 500.2500, L100.0100 ####[facility] [address] [place], [address] MCHC Normal 32-36 [facility] Comment on above: Result Comment: Canc elled via OM: Order cancelled - Patient discharged Performed By: #### L 500.2500, L100.0100 ####[facility] [address] [place], [address] MCV Normal 81-99 [facility] Comment on above: Result Comment: Canc elled via OM: Order cancelled - Patient discharged Performed By: #### L 500.2500, L100.0100 ####[facility] [address] [place], [address] NEUT% Normal 47-70 [facility] Comment on above: Result Comment: Canc elled via OM: Order cancelled - Patient discharged Performed By: #### L 500.2500, L100.0100 ####[facility] [address] [place], [address] PLT Normal 150-450 [facility] Comment on above: Result Comment: Canc elled via OM: Order cancelled - Patient discharged Performed By: #### L 500.2500, L100.0100 ####[facility] [address] [place], [address] RBC Normal 4.2-5.4 [facility] Comment on above: Result Comment: Canc elled via OM: Order cancelled - Patient discharged Performed By: #### L 500.2500, L100.0100 ####[facility] [address] [place], [address] RDW CV Normal 11.6-14.6 [facility] Comment on above: Result Comment: Canc elled via OM: Order cancelled - Patient discharged Performed By: #### L 500.2500, L100.0100 ####[facility] [address] [place] [facility] [place], [address] RDW SD Normal 35.1-43.9 [facility] Comment on above: Result Comment: Canc elled via OM: Order cancelled - Patient discharged Performed By: #### L 500.2500, L100.0100 ####[facility] [address] [place], [address] WBC Normal 4.4-11.0 [facility] Comment on above: Result Comment: Canc elled via OM: Order cancelled - Patient discharged Performed By: #### L 500.2500, L100.0100 ####[facility] [address] [place], [address] Basic Metabolic Profile (BMP )on 10-07-2024 BUN Normal 4-19 [facility] Comment on above: Result Comment: Canc elled via OM: Order cancelled - Patient discharged Performed By: #### L 500.2500, L100.0100 ####[facility] [address] [place], [address] BUN/CRE Normal 10-20 [facility] Comment on above: Result Comment: Canc elled via OM: Order cancelled - Patient discharged Performed By: #### L 500.2500, L100.0100 ####[facility] [address] [place], [address] Calcium Normal 7.6-11.0 [facility] Comment on above: Result Comment: Canc elled via OM: Order cancelled - Patient discharged Performed By: #### L 500.2500, L100.0100 ####[facility] [address] [place], [address] CL Normal 98-108 [facility] Comment on above: Result Comment: Canc elled via OM: Order cancelled - Patient discharged Performed By: #### L 500.2500, L100.0100 ####[facility] [address] [place], [address] CO2 Normal 21.0-32.0 [facility] Comment on above: Result Comment: Canc elled via OM: Order cancelled - Patient discharged Performed By: #### L 500.2500, L100.0100 ####[facility] [address] [place], [address] CREAT,SERUM Normal 0.70-1.20 [facility] Comment on above: Result Comment: Canc elled via OM: Order cancelled - Patient discharged Performed By: #### L 500.2500, L100.0100 ####[facility] [address] [place], [address] eGFR Normal >60 [facility] Comment on above: Result Comment: Canc elled via OM: Order cancelled - Patient discharged Performed By: #### L 500.2500, L100.0100 ####[facility] [address] [place], [address] GAP Normal 5-15 [facility] Comment on above: Result Comment: Canc elled via OM: Order cancelled - Patient discharged Performed By: #### L 500.2500, L100.0100 ####[facility] [address] [place], [address] GLU Normal 70-99 [facility] Comment on above: Result Comment: Canc elled via OM: Order cancelled - Patient discharged Performed By: #### L 500.2500, L100.0100 ####[facility] [address] [place], [address] Potassium Normal 3.3-5.1 [facility] Comment on above: Result Comment: Canc elled via OM: Order cancelled - Patient discharged Performed By: #### L 500.2500, L100.0100 ####[facility] [address] [place], [address] Basic Metabolic Profile (BMP) Normal 133-145 [facility] Comment on above: Result Comment: Canc elled via OM: Order cancelled - Patient discharged Performed By: #### L 500.2500, L100.0100 ####[facility] [address] [place], [address] CBC W/Diff, Automatedon 07-2 Absolute Neut Normal 2.0-7.7 [facility] Comment on above: Result Comment: Canc elled via OM: Order cancelled - Patient discharged Performed By: #### L 500.2500, L100.0100 ####[facility] [address] [place], [address] HCT Normal 37-47 [facility] Comment on above: Result Comment: Canc elled via OM: Order cancelled - Patient discharged Performed By: #### L 500.2500, L100.0100 ####[facility] [address] [place], [address] HGB Normal 12.0-15.0 [facility] Comment on above: Result Comment: Canc elled via OM: Order cancelled - Patient discharged Performed By: #### L 500.2500, L100.0100 ####[facility] [address] [place], [address] MCH Normal 27.0-32.0 [facility] Comment on above: Result Comment: Canc elled via OM: Order cancelled - Patient discharged Performed By: #### L 500.2500, L100.0100 ####[facility] [address] [place], [address] MCHC Normal 32-36 [facility] Comment on above: Result Comment: Canc elled via OM: Order cancelled - Patient discharged Performed By: #### L 500.2500, L100.0100 ####[facility] [address] [place], [address] MCV Normal 81-99 [facility] Comment on above: Result Comment: Canc elled via OM: Order cancelled - Patient discharged Performed By: #### L 500.2500, L100.0100 ####[facility] [address] [place], [address] NEUT% Normal 47-70 [facility] Comment on above: Result Comment: Canc elled via OM: Order cancelled - Patient discharged Performed By: #### L 500.2500, L100.0100 ####[facility] [address] [place], [address] PLT Normal 150-450 [facility] Comment on above: Result Comment: Canc elled via OM: Order cancelled - Patient discharged Performed By: #### L 500.2500, L100.0100 ####[facility] [address] [place], [address] RBC Normal 4.2-5.4 [facility] Comment on above: Result Comment: Canc elled via OM: Order cancelled - Patient discharged Performed By: #### L 500.2500, L100.0100 ####[facility] [address] [place], [address] RDW CV Normal 11.6-14.6 [facility] Comment on above: Result Comment: Canc elled via OM: Order cancelled - Patient discharged Performed By: #### L 500.2500, L100.0100 ####[facility] [address] [place], [address] RDW SD Normal 35.1-43.9 [facility] Comment on above: Result Comment: Canc elled via OM: Order cancelled - Patient discharged Performed By: #### L 500.2500, L100.0100 ####[facility] [address] [place], [address] WBC Normal 4.4-11.0 [facility] Comment on above: Result Comment: Canc elled via OM: Order cancelled - Patient discharged Performed By: #### L 500.2500, L100.0100 ####[facility] [address] [place], [address] Automated blood hematocrit ( percentage)Ordered By: Harish Luis on 10-02-2024 Hematocrit (Bld) [Volume fraction] 31.2 % Low 37-47 [facility] Comment on above: Performed By: #### L 100.0600 ####[facility] [address] [place], [address] Basic Metabolic Profile (BMP )on 10-02-2024 BUN Normal 4-19 [facility] Comment on above: Result Comment: Canc elled via OM: Order cancelled - Patient discharged Performed By: #### L 100.0100, L500.2500 ####[facility] [address] [place], [address] BUN/CRE Normal 10-20 [facility] Comment on above: Result Comment: Canc elled via OM: Order cancelled - Patient discharged Performed By: #### L 100.0100, L500.2500 ####[facility] [address] [place], [address] Calcium Normal 7.6-11.0 [facility] Comment on above: Result Comment: Canc elled via OM: Order cancelled - Patient discharged Performed By: #### L 100.0100, L500.2500 ####[facility] [address] [place], [address] CL Normal 98-108 [facility] Comment on above: Result Comment: Canc elled via OM: Order cancelled - Patient discharged Performed By: #### L 100.0100, L500.2500 ####[facility] [address] [place], [address] CO2 Normal 21.0-32.0 [facility] Comment on above: Result Comment: Canc elled via OM: Order cancelled - Patient discharged Performed By: #### L 100.0100, L500.2500 ####[facility] [address] [place], [address] CREAT,SERUM Normal 0.70-1.20 [facility] Comment on above: Result Comment: Canc elled via OM: Order cancelled - Patient discharged Performed By: #### L 100.0100, L500.2500 ####[facility] [address] [place], [address] eGFR Normal >60 [facility] Comment on above: Result Comment: Canc elled via OM: Order cancelled - Patient discharged Performed By: #### L 100.0100, L500.2500 ####[facility] [address] [place], [address] GAP Normal 5-15 [facility] Comment on above: Result Comment: Canc elled via OM: Order cancelled - Patient discharged Performed By: #### L 100.0100, L500.2500 ####[facility] [address] [place], [address] GLU Normal 70-99 [facility] Comment on above: Result Comment: Canc elled via OM: Order cancelled - Patient discharged Performed By: #### L 100.0100, L500.2500 ####[facility] [address] [place], [address] Potassium Normal 3.3-5.1 [facility] Comment on above: Result Comment: Canc elled via OM: Order cancelled - Patient discharged Performed By: #### L 100.0100, L500.2500 ####[facility] [address] [place], [address] Basic Metabolic Profile (BMP) Normal 133-145 [facility] Comment on above: Result Comment: Canc elled via OM: Order cancelled - Patient discharged Performed By: #### L 100.0100, L500.2500 ####[facility] [address] [place], [address] CBC W/Diff, Automatedon 07-1 Absolute Neut Normal 2.0-7.7 [facility] Comment on above: Result Comment: Canc elled via OM: Order cancelled - Patient discharged Performed By: #### L 100.0100, L500.2500 ####[facility] [address] [place], [address] HCT Normal 37-47 [facility] Comment on above: Result Comment: Canc elled via OM: Order cancelled - Patient discharged Performed By: #### L 100.0100, L500.2500 ####[facility] [address] [place], [address] HGB Normal 12.0-15.0 [facility] Comment on above: Result Comment: Canc elled via OM: Order cancelled - Patient discharged Performed By: #### L 100.0100, L500.2500 ####[facility] [address] [place], [address] MCH Normal 27.0-32.0 [facility] Comment on above: Result Comment: Canc elled via OM: Order cancelled - Patient discharged Performed By: #### L 100.0100, L500.2500 ####[facility] [address] [place], [address] MCHC Normal 32-36 [facility] Comment on above: Result Comment: Canc elled via OM: Order cancelled - Patient discharged Performed By: #### L 100.0100, L500.2500 ####[facility] [address] [place], [address] MCV Normal 81-99 [facility] Comment on above: Result Comment: Canc elled via OM: Order cancelled - Patient discharged Performed By: #### L 100.0100, L500.2500 ####[facility] [address] [place], [address] NEUT% Normal 47-70 [facility] Comment on above: Result Comment: Canc elled via OM: Order cancelled - Patient discharged Performed By: #### L 100.0100, L500.2500 ####[facility] [address] [place], [address] PLT Normal 150-450 [facility] Comment on above: Result Comment: Canc elled via OM: Order cancelled - Patient discharged Performed By: #### L 100.0100, L500.2500 ####[facility] [address] [place], [address] RBC Normal 4.2-5.4 [facility] Comment on above: Result Comment: Canc elled via OM: Order cancelled - Patient discharged Performed By: #### L 100.0100, L500.2500 ####[facility] [address] [place], [address] RDW CV Normal 11.6-14.6 [facility] Comment on above: Result Comment: Canc elled via OM: Order cancelled - Patient discharged Performed By: #### L 100.0100, L500.2500 ####[facility] [address] [place], [address] RDW SD Normal 35.1-43.9 [facility] Comment on above: Result Comment: Canc elled via OM: Order cancelled - Patient discharged Performed By: #### L 100.0100, L500.2500 ####[facility] [address] [place], [address] WBC Normal 4.4-11.0 [facility] Comment on above: Result Comment: Canc elled via OM: Order cancelled - Patient discharged Performed By: #### L 100.0100, L500.2500 ####[facility] [address] [place], [address] Hemoglobin measurementOrdere d By: Harish Luis on 10-02-2024 Hemoglobin (Bld) [Mass/Vol] 10.0 g/dL Low 12.0-15.0 [facility] Comment on above: Performed By: #### L 100.0600 ####[facility] [address] [place], [address] Basic Metabolic Profile (BMP )on 10-01-2024 BUN Normal 4-19 [facility] Comment on above: Result Comment: Canc elled via OM: Order cancelled - Patient discharged Performed By: #### L 100.0100, L500.2500 ####[facility] [address] [place], [address] BUN/CRE Normal 10-20 [facility] Comment on above: Result Comment: Canc elled via OM: Order cancelled - Patient discharged Performed By: #### L 100.0100, L500.2500 ####[facility] [address] [place], [address] Calcium Normal 7.6-11.0 [facility] Comment on above: Result Comment: Canc elled via OM: Order cancelled - Patient discharged Performed By: #### L 100.0100, L500.2500 ####[facility] [address] [place], [address] CL Normal 98-108 [facility] Comment on above: Result Comment: Canc elled via OM: Order cancelled - Patient discharged Performed By: #### L 100.0100, L500.2500 ####[facility] [address] [place], [address] CO2 Normal 21.0-32.0 [facility] Comment on above: Result Comment: Canc elled via OM: Order cancelled - Patient discharged Performed By: #### L 100.0100, L500.2500 ####[facility] [address] [place], [address] CREAT,SERUM Normal 0.70-1.20 [facility] Comment on above: Result Comment: Canc elled via OM: Order cancelled - Patient discharged Performed By: #### L 100.0100, L500.2500 ####[facility] [address] [place], [address] eGFR Normal >60 [facility] Comment on above: Result Comment: Canc elled via OM: Order cancelled - Patient discharged Performed By: #### L 100.0100, L500.2500 ####[facility] [address] [place], [address] GAP Normal 5-15 [facility] Comment on above: Result Comment: Canc elled via OM: Order cancelled - Patient discharged Performed By: #### L 100.0100, L500.2500 ####[facility] [address] [place], [address] GLU Normal 70-99 [facility] Comment on above: Result Comment: Canc elled via OM: Order cancelled - Patient discharged Performed By: #### L 100.0100, L500.2500 ####[facility] [address] [place], [address] Potassium Normal 3.3-5.1 [facility] Comment on above: Result Comment: Canc elled via OM: Order cancelled - Patient discharged Performed By: #### L 100.0100, L500.2500 ####[facility] [address] [place], [address] Basic Metabolic Profile (BMP) Normal 133-145 [facility] Comment on above: Result Comment: Canc elled via OM: Order cancelled - Patient discharged Performed By: #### L 100.0100, L500.2500 ####[facility] [address] [place], [address] CBC W/Diff, Automatedon 07-1 Absolute Neut Normal 2.0-7.7 [facility] Comment on above: Result Comment: Canc elled via OM: Order cancelled - Patient discharged Performed By: #### L 100.0100, L500.2500 ####[facility] [address] [place], [address] HCT Normal 37-47 [facility] Comment on above: Result Comment: Canc elled via OM: Order cancelled - Patient discharged Performed By: #### L 100.0100, L500.2500 ####[facility] [address] [place], [address] HGB Normal 12.0-15.0 [facility] Comment on above: Result Comment: Canc elled via OM: Order cancelled - Patient discharged Performed By: #### L 100.0100, L500.2500 ####[facility] [address] [place], [address] MCH Normal 27.0-32.0 [facility] Comment on above: Result Comment: Canc elled via OM: Order cancelled - Patient discharged Performed By: #### L 100.0100, L500.2500 ####[facility] [address] [place], [address] MCHC Normal 32-36 [facility] Comment on above: Result Comment: Canc elled via OM: Order cancelled - Patient discharged Performed By: #### L 100.0100, L500.2500 ####[facility] [address] [place], [address] MCV Normal 81-99 [facility] Comment on above: Result Comment: Canc elled via OM: Order cancelled - Patient discharged Performed By: #### L 100.0100, L500.2500 ####[facility] [address] [place], [address] NEUT% Normal 47-70 [facility] Comment on above: Result Comment: Canc elled via OM: Order cancelled - Patient discharged Performed By: #### L 100.0100, L500.2500 ####[facility] [address] [place], [address] PLT Normal 150-450 [facility] Comment on above: Result Comment: Canc elled via OM: Order cancelled - Patient discharged Performed By: #### L 100.0100, L500.2500 ####[facility] [address] [place], [address] RBC Normal 4.2-5.4 [facility] Comment on above: Result Comment: Canc elled via OM: Order cancelled - Patient discharged Performed By: #### L 100.0100, L500.2500 ####[facility] [address] [place], [address] RDW CV Normal 11.6-14.6 [facility] Comment on above: Result Comment: Canc elled via OM: Order cancelled - Patient discharged Performed By: #### L 100.0100, L500.2500 ####[facility] [address] [place], [address] RDW SD Normal 35.1-43.9 [facility] Comment on above: Result Comment: Canc elled via OM: Order cancelled - Patient discharged Performed By: #### L 100.0100, L500.2500 ####[facility] [address] [place], [address] WBC Normal 4.4-11.0 [facility] Comment on above: Result Comment: Canc elled via OM: Order cancelled - Patient discharged Performed By: #### L 100.0100, L500.2500 ####[facility] [address] [place], [address] HH, Hemoglobin AND Hematocri ton 10-01-2024 Hematocrit (Bld) [Volume fraction] 30.1 % Low 37-47 [facility] Comment on above: Performed By: #### L 100.0600 ####[facility] [address] [place], [address] Hemoglobin (Bld) [Mass/Vol] 9.8 g/dL Low 12.0-15.0 [facility] Comment on above: Performed By: #### L 100.0600 ####[facility] [address] [place], [address] MR/CON.PCM.GIon 10-01-2024 MR/CON.PCM.GI Normal [facility] Modified Barium Swallow Stud yon 10-01-2024 Modified Barium Swallow Study Normal [facility] Absolute lymphocyte countOrd ered By: Harish Luis on 09-30-2024 Lymphocytes Auto (Unsp spec) [#/Vol] 1.68 10*3/uL 0.83-4.51 [facility] Anion gap in Serum or Plasma Ordered By: Harish Luis on 09-30-2024 Anion gap [Moles/Vol] 10 mmol/L 07-31 [facility] Automated lymphocyte count a s percentage of total leukocytesOrdered By: Harish Lusi on 09-30-2024 Lymphocytes/100 WBC Auto (Unsp spec) 30.9 % - [facility] BUN/creatinine ratioOrdered By: Harish Luis on 09-30-2024 Urea nitrogen/Creatinine [Mass ratio] 12.3 mg/mg - [facility] Basic Metabolic Profile (BMP )on 09-30-2024 BUN/CRE 12.3 RATIO Normal - [facility] Comment on above: Performed By: #### L 500.2500, L100.0100 ####[facility] [address] [facility] [place], [address] Calcium [Mass/Vol] 8.6 mg/dL Normal 7.6-11.0 [facility] Comment on above: Performed By: #### L 500.2500, L100.0100 ####[facility] [address] [place], [address] Chloride [Moles/Vol] 107 mmol/L Normal 98-108 [facility] Comment on above: Performed By: #### L 500.2500, L100.0100 ####[facility] [address] [place], [address] CO2 [Moles/Vol] 26.4 mmol/L Normal 21.0-32.0 [facility] Comment on above: Performed By: #### L 500.2500, L100.0100 ####[facility] [address] [place], [address] Creatinine [Mass/Vol] 0.76 mg/dL Normal 0.70-1.20 [facility] Comment on above: Performed By: #### L 500.2500, L100.0100 ####[facility] [address] [place], [address] ECRCL 43.63 ml/min Low 50-250 [facility] Comment on above: Performed By: #### L 500.2500, L100.0100 ####[facility] [address] [place], [address] GAP 10 Normal 5-15 [facility] Comment on above: Performed By: #### L 500.2500, L100.0100 ####[facility] [address] [place], [address] GFR/1.73 sq M.predicted among non-blacks MDRD (S/P/Bld) [Vol rate/Area] 83 mL/min/{1.73_m2} Normal >60 [facility] Comment on above: Result Comment: mL/m in/1.73m2 CKD-EPI Creatinine Equation (2020) Performed By: #### L 500.2500, L100.0100 ####[facility] [address] [place], [address] Glucose [Mass/Vol] 106 mg/dL High 70-99 [facility] Comment on above: Performed By: #### L 500.2500, L100.0100 ####[facility] [address] [place], [address] Potassium [Moles/Vol] 3.4 mmol/L Normal 3.3-5.1 [facility] Comment on above: Performed By: #### L 500.2500, L100.0100 ####[facility] [address] [place], [address] Sodium [Moles/Vol] 143 mmol/L Normal 133-145 [facility] Comment on above: Performed By: #### L 500.2500, L100.0100 ####[facility] [address] [place], [address] Urea nitrogen [Mass/Vol] 9 mg/dL Normal 4-19 [facility] Comment on above: Performed By: #### L 500.2500, L100.0100 ####[facility] [address] [place], [address] Basophil percentageOrdered B y: Harish Luis on 09-30-2024 Basophils/100 WBC (Bld) 0.7 % 0-1 [facility] CBC W/Diff, Automatedon 09-16 Absolute Neut Normal 2.0-7.7 [facility] Comment on above: Result Comment: Canc elled via OM: Order cancelled - Patient discharged Performed By: #### L 100.0100 ####[facility] [address] [place], [address] HCT Normal 37-47 [facility] Comment on above: Result Comment: Canc elled via OM: Order cancelled - Patient discharged Performed By: #### L 100.0100 ####[facility] [address] [place], [address] HGB Normal 12.0-15.0 [facility] Comment on above: Result Comment: Canc elled via OM: Order cancelled - Patient discharged Performed By: #### L 100.0100 ####[facility] [address] [place], [address] MCH Normal 27.0-32.0 [facility] Comment on above: Result Comment: Canc elled via OM: Order cancelled - Patient discharged Performed By: #### L 100.0100 ####[facility] [address] [place], [address] MCHC Normal 32-36 [facility] Comment on above: Result Comment: Canc elled via OM: Order cancelled - Patient discharged Performed By: #### L 100.0100 ####[facility] [address] [place], [address] MCV Normal 81-99 [facility] Comment on above: Result Comment: Canc elled via OM: Order cancelled - Patient discharged Performed By: #### L 100.0100 ####[facility] [address] [place], [address] NEUT% Normal 47-70 [facility] Comment on above: Result Comment: Canc elled via OM: Order cancelled - Patient discharged Performed By: #### L 100.0100 ####[facility] [address] [place], [address] PLT Normal 150-450 [facility] Comment on above: Result Comment: Canc elled via OM: Order cancelled - Patient discharged Performed By: #### L 100.0100 ####[facility] [address] [place], [address] RBC Normal 4.2-5.4 [facility] Comment on above: Result Comment: Canc elled via OM: Order cancelled - Patient discharged Performed By: #### L 100.0100 ####[facility] [address] [place], [address] RDW CV Normal 11.6-14.6 [facility] Comment on above: Result Comment: Canc elled via OM: Order cancelled - Patient discharged Performed By: #### L 100.0100 ####[facility] [address] [place], [address] RDW SD Normal 35.1-43.9 [facility] Comment on above: Result Comment: Canc elled via OM: Order cancelled - Patient discharged Performed By: #### L 100.0100 ####[facility] [address] [place], [address] WBC Normal 4.4-11.0 [facility] Comment on above: Result Comment: Canc elled via OM: Order cancelled - Patient discharged Performed By: #### L 100.0100 ####[facility] [address] [place], [address] Absolute Lymph 1.68 X10 3/uL Normal 0.83-4.51 [facility] Comment on above: Performed By: #### L 500.2500, L100.0100 ####[facility] [address] [place], [address] Absolute Neut 3.0 X10 3/uL Normal 2.0-7.7 [facility] Comment on above: Performed By: #### L 500.2500, L100.0100 ####[facility] [address] [place], [address] Basophils/100 WBC (Bld) 0.7 % Normal 0-1 [facility] Comment on above: Performed By: #### L 500.2500, L100.0100 ####[facility] [address] [place], [address] Eosinophils/100 WBC (Bld) 3.9 % Normal 0-5 [facility] Comment on above: Performed By: #### L 500.2500, L100.0100 ####[facility] [address] [place], [address] Erythrocyte distribution width (RBC) [Ratio] 14.1 % Normal 11.6-14.6 [facility] Comment on above: Performed By: #### L 500.2500, L100.0100 ####[facility] [address] [place], [address] Hematocrit (Bld) [Volume fraction] 28.9 % Low 37-47 [facility] Comment on above: Performed By: #### L 500.2500, L100.0100 ####[facility] [address] [place], [address] Hemoglobin (Bld) [Mass/Vol] 9.6 g/dL Low 12.0-15.0 [facility] Comment on above: Performed By: #### L 500.2500, L100.0100 ####[facility] [address] [place], [address] IG% 0.400 Normal 0.0-0.9 [facility] Comment on above: Result Comment: IG% - Immature Granulocytes (promyelocytes, myelocytes andmetamyelocytes) > 1% indicates that a LEFT SHIFT is Present. Performed By: #### L 500.2500, L100.0100 ####[facility] [address] [place], [address] Lymphocytes/100 WBC (Bld) 30.9 % Normal 19-41 [facility] Comment on above: Performed By: #### L 500.2500, L100.0100 ####[facility] [address] [place], [address] MCH (RBC) [Entitic mass] 31.3 pg Normal 27.0-32.0 [facility] Comment on above: Performed By: #### L 500.2500, L100.0100 ####[facility] [address] [place], [address] MCHC (RBC) [Mass/Vol] 33.2 g/dL Normal 32-36 [facility] Comment on above: Performed By: #### L 500.2500, L100.0100 ####[facility] [address] [place], [address] MCV (RBC) [Entitic vol] 94.1 fL Normal 81-99 [facility] Comment on above: Performed By: #### L 500.2500, L100.0100 ####[facility] [address] [place], [address] Monocytes/100 WBC (Bld) 8.7 % Normal 0-10 [facility] Comment on above: Performed By: #### L 500.2500, L100.0100 ####[facility] [address] [place], [address] Neutrophils/100 WBC (Bld) 55.4 % Normal 47-70 [facility] Comment on above: Performed By: #### L 500.2500, L100.0100 ####[facility] [address] [place], [address] Nucleated RBC (Bld) [#/Vol] 0 10*3/uL Normal 0-5 [facility] Comment on above: Performed By: #### L 500.2500, L100.0100 ####[facility] [address] [place], [address] Platelet mean volume (Bld) [Entitic vol] 9.4 fL Normal 6.2-12.0 [facility] Comment on above: Performed By: #### L 500.2500, L100.0100 ####[facility] [address] [place], [address] Platelets (Bld) [#/Vol] 468 10*3/uL High 150-450 [facility] Comment on above: Performed By: #### L 500.2500, L100.0100 ####[facility] [address] [place], [address] RBC (Bld) [#/Vol] 3.07 10*6/uL Low 4.2-5.4 [facility] Comment on above: Performed By: #### L 500.2500, L100.0100 ####[facility] [address] [place], [address] RDW SD 48.4 fl High 35.1-43.9 [facility] Comment on above: Performed By: #### L 500.2500, L100.0100 ####[facility] [address] [place], [address] WBC (Bld) [#/Vol] 5.4 10*3/uL Normal 4.4-11.0 [facility] Comment on above: Performed By: #### L 500.2500, L100.0100 ####[facility] [address] [place], [address] Carbon dioxide, total [Moles /volume] in Central venous bloodOrdered By: Harish Luis on 09-30-2024 CO2 [Moles/Vol] 26.4 mmol/L 21.0-32.0 [facility] Chloride assayOrdered By: Levar Luis on 09-30-2024 Chloride [Moles/Vol] 107 mmol/L 98-108 [facility] Eosinophil percentageOrdered By: Harish Luis 09-30-2024 Eosinophils/100 WBC (Bld) 3.9 % 0-5 [facility] Erythrocyte distribution wid th ratioOrdered By: Harish Luis 09-30-2024 Erythrocyte distribution width (RBC) [Ratio] 14.1 % 11.6-14.6 [facility] Erythrocyte distribution wid th standard deviationOrdered By: Harish Luis 09-30-2024 Erythrocyte distribution width (RBC) [Ratio] 48.4 fl High 35.1-43.9 [facility] Glomerular filtration rate ( GFR) estimation/1.73 sq m using serum, plasma, or whole bOrdered By: Harish Luis on 09-30-2024 GFR/1.73 sq M.predicted among non-blacks MDRD (S/P/Bld) [Vol rate/Area] 83 mL/min/{1.73_m2} >60 [facility] Immature granulocytes/100 WB C Auto (Bld)Ordered By: Harish Luis on 09-30-2024 Immature granulocytes/100 WBC (Bld) 0.400 % 0.0-0.9 [facility] Iron measurement (mass/mass) Ordered By: Harish Luis on 09-30-2024 Iron (Unsp spec) [Mass/Mass] 37 ug/dL Low 50-170 [facility] Iron+Iron Binding Capacityon 09-30-2024 TIBC 183 ug/dL Low 250-450 [facility] Comment on above: Performed By: #### L 503.6030 ####[facility] [address] [place], [place], [address] MCV (mean corpuscular volume ) determinationOrdered By: Harish Luis on 09-30-2024 MCV (RBC) [Entitic vol] 94.1 fL 81-99 [facility] Mean corpuscular hemoglobin (MCH) determinationOrdered By: Harish Luis on 09-30-2024 MCH (RBC) [Entitic mass] 31.3 pg 27.0-32.0 [facility] Monocyte percentageOrdered B y: Harish Luis on 09-30-2024 Monocytes/100 WBC (Bld) 8.7 % 0-10 [facility] Neutrophil percentageOrdered By: Harish Luis on 09-30-2024 Neutrophils/100 WBC (Bld) 55.4 % 47-70 [facility] No Panel InformationOrdered By: Harish Luis on 09-30-2024 146 ug/dL Low 228-428 [facility] Platelet countOrdered By: Levar Luis on 09-30-2024 Platelets (Bld) [#/Vol] 468 10*3/uL High 150-450 [facility] Potassium measurement (mass/ volume)Ordered By: Harish Luis on 09-30-2024 Potassium (Unsp spec) [Mass/Vol] 3.4 mmol/L 3.3-5.1 [facility] RBC Auto (Bld) [#/Vol]Ordere d By: Harish Luis on 09-30-2024 RBC (Bld) [#/Vol] 3.07 10*6/uL Low 4.2-5.4 [facility] Serum creatinine measurement (mass/volume)Ordered By: Harish Luis on 09-30-2024 Creatinine [Mass/Vol] 0.76 mg/dL 0.70-1.20 [facility] Serum glucose measurement (m ass/volume)Ordered By: Harish Luis on 09-30-2024 Glucose [Mass/Vol] 106 mg/dL High 70-99 [facility] Serum or plasma calcium rosangela urement (mass/volume)Ordered By: Harish Luis on 09-30-2024 Calcium [Mass/Vol] 8.6 mg/dL 7.6-11.0 [facility] Serum or plasma iron saturat ion measurement (mass fraction)Ordered By: Harish Luis on 09-30-2024 Iron saturation [Mass fraction] 20.2 % 13-59 [facility] Serum or plasma urea nitroge n measurement (mass/volume)Ordered By: Harish Luis on 09-30-2024 Urea nitrogen [Mass/Vol] 9 mg/dL 4-19 [facility] Sodium levelOrdered By: Harish Luis on 09-30-2024 Sodium [Moles/Vol] 143 mmol/L 133-145 [facility] Stool Occult Blood iFOBon STOB Negative Normal [facility] Comment on above: Performed By: #### M 100.7900 ####[facility] [address] [place], [place], [address] Stool gastrointestinal hemog lobin detection by immunologic methodOrdered By: Harish Luis on 09-30-2024 Lower GI hemoglobin IA Ql (Stl) [facility] White blood cell (WBC) count Ordered By: Harish Luis on 09-30-2024 WBC (Bld) [#/Vol] 5.4 10*3/uL 4.4-11.0 [facility] Absolute lymphocyte countOrd ered By: Anastasia Khan on 09-29-2024 Lymphocytes Auto (Unsp spec) [#/Vol] 1.68 10*3/uL 0.83-4.51 [facility] Absolute neutrophil countOrd ered By: Anastasia Khan on 09-29-2024 Neutrophils (Bld) [#/Vol] 2.2 10*3/uL 2.0-7.7 [facility] Anion gap in Serum or Plasma Ordered By: Anastasia Khan on 09-29-2024 Anion gap [Moles/Vol] 9 mmol/L 5- [facility] BUN/creatinine ratioOrdered By: Anastasia Erin on 09-29-2024 Urea nitrogen/Creatinine [Mass ratio] 11.6 mg/mg 10-20 [facility] Basophil percentageOrdered B y: Anastasia Khan on 09-29-2024 Basophils/100 WBC (Bld) 0.9 % 0-1 [facility] Bilirubin, totalOrdered By: Anastasia Erin on 09-29-2024 Bilirubin [Mass/Vol] 0.19 mg/dL 0.00-1.30 [facility] Blood platelets count (numbe r/volume)Ordered By: Anastasia Khan on 09-29-2024 Platelets (Bld) [#/Vol] 426 10*3/uL 150-450 [facility] CBC W/Diff, Automatedon 09-16 Absolute Lymph 1.68 X10 3/uL Normal 0.83-4.51 [facility] Comment on above: Performed By: #### L 100.0100, L500.4050 ####[facility] [address] [place], [address] Absolute Neut 2.2 X10 3/uL Normal 2.0-7.7 [facility] Comment on above: Performed By: #### L 100.0100, L500.4050 ####[facility] [address] [place], [address] Basophils/100 WBC (Bld) 0.9 % Normal 0-1 [facility] Comment on above: Performed By: #### L 100.0100, L500.4050 ####[facility] [address] [place], [address] Eosinophils/100 WBC (Bld) 5.4 % High 0-5 [facility] Comment on above: Performed By: #### L 100.0100, L500.4050 ####[facility] [address] [place], [address] IG% 0.400 Normal 0.0-0.9 [facility] Comment on above: Result Comment: IG% - Immature Granulocytes (promyelocytes, myelocytes andmetamyelocytes) > 1% indicates that a LEFT SHIFT is Present. Performed By: #### L 100.0100, L500.4050 ####[facility] [address] [place], [address] Lymphocytes/100 WBC (Bld) 36.5 % Normal 19-41 [facility] Comment on above: Performed By: #### L 100.0100, L500.4050 ####[facility] [address] [place], [address] Monocytes/100 WBC (Bld) 9.3 % Normal 0-10 [facility] Comment on above: Performed By: #### L 100.0100, L500.4050 ####[facility] [address] [place], [address] Neutrophils/100 WBC (Bld) 47.5 % Normal 47-70 [facility] Comment on above: Performed By: #### L 100.0100, L500.4050 ####[facility] [address] [place], [address] Platelet mean volume (Bld) [Entitic vol] 9.7 fL Normal 6.2-12.0 [facility] Comment on above: Performed By: #### L 100.0100, L500.4050 ####[facility] [address] [place], [address] Platelets (Bld) [#/Vol] 426 10*3/uL Normal 150-450 [facility] Comment on above: Performed By: #### L 100.0100, L500.4050 ####[facility] [address] [place], [address] RDW SD 48.3 fl High 35.1-43.9 [facility] Comment on above: Performed By: #### L 100.0100, L500.4050 ####[facility] [address] [place], [address] Erythrocyte distribution width (RBC) [Ratio] 14.0 % Normal 11.6-14.6 [facility] Comment on above: Performed By: #### L 100.0100, L500.4050 ####[facility] [address] [place], [address] Hematocrit (Bld) [Volume fraction] 29.1 % Low 37-47 [facility] Comment on above: Performed By: #### L 100.0100, L500.4050 ####[facility] [address] [place], [address] Hemoglobin (Bld) [Mass/Vol] 9.5 g/dL Low 12.0-15.0 [facility] Comment on above: Performed By: #### L 100.0100, L500.4050 ####[facility] [address] [place], [address] MCH (RBC) [Entitic mass] 31.0 pg Normal 27.0-32.0 [facility] Comment on above: Performed By: #### L 100.0100, L500.4050 ####[facility] [address] [place], [address] MCHC (RBC) [Mass/Vol] 32.6 g/dL Normal 32-36 [facility] Comment on above: Performed By: #### L 100.0100, L500.4050 ####[facility] [address] [place], [address] MCV (RBC) [Entitic vol] 95.1 fL Normal 81-99 [facility] Comment on above: Performed By: #### L 100.0100, L500.4050 ####[facility] [address] [place], [address] RBC (Bld) [#/Vol] 3.06 10*6/uL Low 4.2-5.4 [facility] Comment on above: Performed By: #### L 100.0100, L500.4050 ####[facility] [address] [place], [address] WBC (Bld) [#/Vol] 4.6 10*3/uL Normal 4.4-11.0 [facility] Comment on above: Performed By: #### L 100.0100, L500.4050 ####[facility] [address] [place], [address] Absolute Neut Normal 2.0-7.7 [facility] Comment on above: Result Comment: Canc elled via OM: Order cancelled - Patient discharged Performed By: #### L 500.4050, L100.0100 ####[facility] [address] [place], [address] HCT Normal 37-47 [facility] Comment on above: Result Comment: Canc elled via OM: Order cancelled - Patient discharged Performed By: #### L 500.4050, L100.0100 ####[facility] [address] [place], [address] HGB Normal 12.0-15.0 [facility] Comment on above: Result Comment: Canc elled via OM: Order cancelled - Patient discharged Performed By: #### L 500.4050, L100.0100 ####[facility] [address] [place], [address] MCH Normal 27.0-32.0 [facility] Comment on above: Result Comment: Canc elled via OM: Order cancelled - Patient discharged Performed By: #### L 500.4050, L100.0100 ####[facility] [address] [place], [address] MCHC Normal 32-36 [facility] Comment on above: Result Comment: Canc elled via OM: Order cancelled - Patient discharged Performed By: #### L 500.4050, L100.0100 ####[facility] [address] [place], [address] MCV Normal 81-99 [facility] Comment on above: Result Comment: Canc elled via OM: Order cancelled - Patient discharged Performed By: #### L 500.4050, L100.0100 ####[facility] [address] [place], [address] NEUT% Normal 47-70 [facility] Comment on above: Result Comment: Canc elled via OM: Order cancelled - Patient discharged Performed By: #### L 500.4050, L100.0100 ####[facility] [address] [place], [address] PLT Normal 150-450 [facility] Comment on above: Result Comment: Canc elled via OM: Order cancelled - Patient discharged Performed By: #### L 500.4050, L100.0100 ####[facility] [address] [place], [address] RBC Normal 4.2-5.4 [facility] Comment on above: Result Comment: Canc elled via OM: Order cancelled - Patient discharged Performed By: #### L 500.4050, L100.0100 ####[facility] [address] [place], [address] RDW CV Normal 11.6-14.6 [facility] Comment on above: Result Comment: Canc elled via OM: Order cancelled - Patient discharged Performed By: #### L 500.4050, L100.0100 ####[facility] [address] [place], [address] RDW SD Normal 35.1-43.9 [facility] Comment on above: Result Comment: Canc elled via OM: Order cancelled - Patient discharged Performed By: #### L 500.4050, L100.0100 ####[facility] [address] [place], [address] WBC Normal 4.4-11.0 [facility] Comment on above: Result Comment: Canc elled via OM: Order cancelled - Patient discharged Performed By: #### L 500.4050, L100.0100 ####[facility] [address] [place], [address] Carbon dioxide, total [Moles /volume] in Central venous bloodOrdered By: Anastasia Khan on 09-29-2024 CO2 [Moles/Vol] 23.3 mmol/L 21.0-32.0 [facility] Chloride assayOrdered By: Kita Khan on 09-29-2024 Chloride [Moles/Vol] 110 mmol/L High 98-108 [facility] Comprehensive Metabolic Prof ilon 09-29-2024 Albumin [Mass/Vol] 2.5 g/dL Low 3.4-4.8 [facility] Comment on above: Performed By: #### L 100.0100, L500.4050 ####[facility] [address] [place], [address] Albumin/Globulin [Mass ratio] 0.9 {ratio} Normal 0.9-2.4 [facility] Comment on above: Performed By: #### L 100.0100, L500.4050 ####[facility] [address] [place], [address] ALK PHOS 80 U/L Normal 35-104 [facility] Comment on above: Performed By: #### L 100.0100, L500.4050 ####[facility] [address] [place], [address] ALT [Catalytic activity/Vol] 12 U/L Normal <=34 [facility] Comment on above: Performed By: #### L 100.0100, L500.4050 ####[facility] [address] [place], [address] AST [Catalytic activity/Vol] 26 U/L Normal <=31 [facility] Comment on above: Performed By: #### L 100.0100, L500.4050 ####[facility] [address] [place], [address] Bilirubin [Mass/Vol] 0.19 mg/dL Normal 0.00-1.30 [facility] Comment on above: Performed By: #### L 100.0100, L500.4050 ####[facility] [address] [place], [address] BUN/CRE 11.6 RATIO Normal 10-20 [facility] Comment on above: Performed By: #### L 100.0100, L500.4050 ####[facility] [address] [place], [address] Calcium [Mass/Vol] 8.6 mg/dL Normal 7.6-11.0 [facility] Comment on above: Performed By: #### L 100.0100, L500.4050 ####[facility] [address] [place], [address] Chloride [Moles/Vol] 110 mmol/L High 98-108 [facility] Comment on above: Performed By: #### L 100.0100, L500.4050 ####[facility] [address] [place], [address] CO2 [Moles/Vol] 23.3 mmol/L Normal 21.0-32.0 [facility] Comment on above: Performed By: #### L 100.0100, L500.4050 ####[facility] [address] [place], [address] Creatinine [Mass/Vol] 0.75 mg/dL Normal 0.70-1.20 [facility] Comment on above: Performed By: #### L 100.0100, L500.4050 ####[facility] [address] [place], [address] ECRCL 46.56 ml/min Low 50-250 [facility] Comment on above: Performed By: #### L 100.0100, L500.4050 ####[facility] [address] [place], [address] GAP 9 Normal 5-15 [facility] Comment on above: Performed By: #### L 100.0100, L500.4050 ####[facility] [address] [place], [address] GFR/1.73 sq M.predicted among non-blacks MDRD (S/P/Bld) [Vol rate/Area] 83 mL/min/{1.73_m2} Normal >60 [facility] Comment on above: Result Comment: mL/m in/1.73m2 CKD-EPI Creatinine Equation (2020) Performed By: #### L 100.0100, L500.4050 ####[facility] [address] [place], [address] Globulin (S) [Mass/Vol] 2.8 g/dL Normal 2.2-4.2 [facility] Comment on above: Performed By: #### L 100.0100, L500.4050 ####[facility] [address] [place], [address] Glucose [Mass/Vol] 86 mg/dL Normal 70-99 [facility] Comment on above: Performed By: #### L 100.0100, L500.4050 ####[facility] [address] [place], [address] Potassium [Moles/Vol] 3.7 mmol/L Normal 3.3-5.1 [facility] Comment on above: Performed By: #### L 100.0100, L500.4050 ####[facility] [address] [place], [address] Sodium [Moles/Vol] 142 mmol/L Normal 133-145 [facility] Comment on above: Performed By: #### L 100.0100, L500.4050 ####[facility] [address] [place], [address] T PROT 5.3 g/dL Low 5.9-8.4 [facility] Comment on above: Performed By: #### L 100.0100, L500.4050 ####[facility] [address] [place], [address] Urea nitrogen [Mass/Vol] 9 mg/dL Normal 4-19 [facility] Comment on above: Performed By: #### L 100.0100, L500.4050 ####[facility] [address] [place], [address] ALB Normal 3.4-4.8 [facility] Comment on above: Result Comment: Canc elled via OM: Order cancelled - Patient discharged Performed By: #### L 500.4050, L100.0100 ####[facility] [address] [place], [address] ALK PHOS Normal 35-104 [facility] Comment on above: Result Comment: Canc elled via OM: Order cancelled - Patient discharged Performed By: #### L 500.4050, L100.0100 ####[facility] [address] [place], [address] ALT Normal <=34 [facility] Comment on above: Result Comment: Canc elled via OM: Order cancelled - Patient discharged Performed By: #### L 500.4050, L100.0100 ####[facility] [address] [place], [address] AST Normal <=31 [facility] Comment on above: Result Comment: Canc elled via OM: Order cancelled - Patient discharged Performed By: #### L 500.4050, L100.0100 ####[facility] [address] [place], [address] BUN Normal 4-19 [facility] Comment on above: Result Comment: Canc elled via OM: Order cancelled - Patient discharged Performed By: #### L 500.4050, L100.0100 ####[facility] [address] [place], [address] BUN/CRE Normal 10-20 [facility] Comment on above: Result Comment: Canc elled via OM: Order cancelled - Patient discharged Performed By: #### L 500.4050, L100.0100 ####[facility] [address] [place], [address] Calcium Normal 7.6-11.0 [facility] Comment on above: Result Comment: Canc elled via OM: Order cancelled - Patient discharged Performed By: #### L 500.4050, L100.0100 ####[facility] [address] [place], [address] CL Normal 98-108 [facility] Comment on above: Result Comment: Canc elled via OM: Order cancelled - Patient discharged Performed By: #### L 500.4050, L100.0100 ####[facility] [address] [place], [address] CO2 Normal 21.0-32.0 [facility] Comment on above: Result Comment: Canc elled via OM: Order cancelled - Patient discharged Performed By: #### L 500.4050, L100.0100 ####[facility] [address] [place], [address] CREAT,SERUM Normal 0.70-1.20 [facility] Comment on above: Result Comment: Canc elled via OM: Order cancelled - Patient discharged Performed By: #### L 500.4050, L100.0100 ####[facility] [address] [place], [address] eGFR Normal >60 [facility] Comment on above: Result Comment: Canc elled via OM: Order cancelled - Patient discharged Performed By: #### L 500.4050, L100.0100 ####[facility] [address] [place], [address] GAP Normal 5-15 [facility] Comment on above: Result Comment: Canc elled via OM: Order cancelled - Patient discharged Performed By: #### L 500.4050, L100.0100 ####[facility] [address] [place], [address] GLU Normal 70-99 [facility] Comment on above: Result Comment: Canc elled via OM: Order cancelled - Patient discharged Performed By: #### L 500.4050, L100.0100 ####[facility] [address] [place], [address] Potassium Normal 3.3-5.1 [facility] Comment on above: Result Comment: Canc elled via OM: Order cancelled - Patient discharged Performed By: #### L 500.4050, L100.0100 ####[facility] [address] [place], [address] T BILI Normal 0.00-1.30 [facility] Comment on above: Result Comment: Canc elled via OM: Order cancelled - Patient discharged Performed By: #### L 500.4050, L100.0100 ####[facility] [address] [place], [address] T PROT Normal 5.9-8.4 [facility] Comment on above: Result Comment: Canc elled via OM: Order cancelled - Patient discharged Performed By: #### L 500.4050, L100.0100 ####[facility] [address] [place], [address] Comprehensive Metabolic Profil Normal 133-145 [facility] Comment on above: Result Comment: Canc elled via OM: Order cancelled - Patient discharged Performed By: #### L 500.4050, L100.0100 ####[facility] [address] [place], [address] Electrocardiogram reportOrde red By: Jose Renee on 09-29-2024 EKG study [facility] [address] [place] [address] 12 Lead EKG 09/27/24 1257 MR#: [id number] Acct: [id number] Name: CAROL DAVID Rep #:[id number] : 1950 74 From: Jose Renee MD Attending Dr: Dr. Ricardo Padilla MD Status: ADM IN Ordering Dr: Dimitry Rosales DO Date: 03/12 Location: [facility] Sex: F C Admitted: 09/27/24 Test Reason : FALL/WEAKNESS Blood Pressure : */* mmHG Vent. Rate : 84 BPM Atrial Rate : 84 BPM P-R Int : 146 ms QRS Dur : 78 ms QT Int : 396 ms P-R-T Axes : 40 9 64 degrees QTcB Int : 467 ms Normal sinus rhythm Normal ECG Confirmed by JOSE RENEE MD ([id number]), legal editor KRISTA KINNEY ([id number]) on 09/29/2024 11:31:38 AM Referred By: Confirmed By: JOSE RENEE MD 09/29/24 1131 Date _ Jose Renee MD CC: Dr. Ricardo Padilla MD; Dr. Dimitry Rosales DO; Dr. Harish Luis MD ~ Signed [facility] Other Phone: Eosinophil %Ordered By: Capri Khan on 09-29-2024 Eosinophils/100 WBC (Bld) 5.4 % High 0-5 [facility] Erythrocyte distribution wid th ratioOrdered By: Erin on 09-29-2024 Erythrocyte distribution width (RBC) [Ratio] 14.0 % 11.6-14.6 [facility] Glomerular filtration rate ( GFR) estimation/1.73 sq m using serum, plasma, or whole bOrdered By: Anastasia Erin on 09-29-2024 GFR/1.73 sq M.predicted among non-blacks MDRD (S/P/Bld) [Vol rate/Area] 83 mL/min/{1.73_m2} >60 [facility] Comment on above: mL/min/1.73m2 CKD-EP I Creatinine Equation (2020) Hematocrit Auto (Bld) [Volum e fraction]Ordered By: Anastasia Khan on 09-29-2024 Hematocrit (Bld) [Volume fraction] 29.1 % Low 37-47 [facility] Hemoglobin measurementOrdere d By: Anastasia Erin on 09-29-2024 Hemoglobin (Bld) [Mass/Vol] 9.5 g/dL Low 12.0-15.0 [facility] Immature granulocyte percent ageOrdered By: Anastasia Erin 09-29-2024 Immature granulocytes/100 WBC (Bld) 0.400 % 0.0-0.9 [facility] Comment on above: IG% - Immature Granu locytes (promyelocytes, myelocytes and metamyelocytes) > 1% indicates that a LEFT SHIFT is Present. Laboratory - Chemistry and C hemistry - challengeOrdered By: Anastasia Erin on 09-29-2024 AST [Catalytic activity/Vol] 26 U/L <32 [facility] Lymphocyte %Ordered By: Capri Khan on 09-29-2024 Lymphocytes/100 WBC (Bld) 36.5 % 19-41 [facility] MCV (mean corpuscular volume ) determinationOrdered By: Anastasia Khan on 09-29-2024 MCV (RBC) [Entitic vol] 95.1 fL 81-99 [facility] Mean corpuscular hemoglobin (MCH) determinationOrdered By: Anastasia Khan on 09-29-2024 MCH (RBC) [Entitic mass] 31.0 pg 27.0-32.0 [facility] Mean corpuscular hemoglobin concentration (MCHC) determinationOrdered By: Anastasia Khan on 09-29-2024 MCHC (RBC) [Mass/Vol] 32.6 g/dL 32-36 [facility] Mean platelet volume determi nationOrdered By: Anastasia White on 09-29-2024 Platelet mean volume (Bld) [Entitic vol] 9.7 fL 6.2-12.0 [facility] Monocyte percentageOrdered B y: Anastasia Khan on 09-29-2024 Monocytes/100 WBC (Bld) 9.3 % 0-10 [facility] Neutrophil %Ordered By: Capri amaya White on 09-29-2024 Neutrophils/100 WBC (Bld) 47.5 % 47-70 [facility] No Panel InformationOrdered By: Anastasia Khan on 09-29-2024 26 U/L <32 [facility] Potassium measurement (mass/ volume)Ordered By: Anastasia Khan on 09-29-2024 Potassium (Unsp spec) [Mass/Vol] 3.7 mmol/L 3.3-5.1 [facility] RBC Auto (Bld) [#/Vol]Ordere d By: Anastasia Khan on 09-29-2024 RBC (Bld) [#/Vol] 3.06 10*6/uL Low 4.2-5.4 [facility] RDWOrdered By: Anastasia Khan on 09-29-2024 RDW 48.3 fl High 35.1-43.9 [facility] Serum creatinine measurement (mass/volume)Ordered By: Anastasia Khan on 09-29-2024 Creatinine [Mass/Vol] 0.75 mg/dL 0.70-1.20 [facility] Serum globulin measurementOr dered By: Anastasia Khan 09-29-2024 Globulin (S) [Mass/Vol] 2.8 g/dL 2.2-4.2 [facility] Serum glucose measurement (m ass/volume)Ordered By: Anastasia Khan on 09-29-2024 Glucose [Mass/Vol] 86 mg/dL 70-99 [facility] Serum or plasma alanine soliz otransferase (ALT) measurementOrdered By: Anastasia Khan on 09-29-2024 ALT [Catalytic activity/Vol] 12 U/L <35 [facility] Serum or plasma albumin rosangela urement (mass/volume)Ordered By: Anastasia Khan on 09-29-2024 Albumin [Mass/Vol] 2.5 g/dL Low 3.4-4.8 [facility] Serum or plasma albumin/glob ulin mass ratioOrdered By: Anastasia Erin on 09-29-2024 Albumin/Globulin [Mass ratio] 0.9 {ratio} 0.9-2.4 [facility] Serum or plasma alkaline faustino sphatase measurementOrdered By: Anastasia Erin on 09-29-2024 ALP [Catalytic activity/Vol] 80 U/L 35-104 [facility] Serum or plasma calcium rosangela urement (mass/volume)Ordered By: Anastasia Khan on 09-29-2024 Calcium [Mass/Vol] 8.6 mg/dL 7.6-11.0 [facility] Serum or plasma urea nitroge n measurement (mass/volume)Ordered By: Anastasia Khan on 09-29-2024 Urea nitrogen [Mass/Vol] 9 mg/dL 4-19 [facility] Sodium levelOrdered By: Fransiscou mn Erin on 09-29-2024 Sodium [Moles/Vol] 142 mmol/L 133-145 [facility] Total proteinOrdered By: Fransisco umn Erin on 09-29-2024 Protein [Mass/Vol] 5.3 g/dL Low 5.9-8.4 [facility] White blood cell (WBC) count Ordered By: Anastasia Khan on 09-29-2024 WBC (Bld) [#/Vol] 4.6 10*3/uL 4.4-11.0 [facility] CBC W/Diff, Automatedon 09-16 Absolute Neut Normal 2.0-7.7 [facility] Comment on above: Result Comment: Canc elled via OM: Order cancelled - Patient discharged Performed By: #### L 500.4050, L100.0100 ####[facility] [address] [place], [address] HCT Normal 37-47 [facility] Comment on above: Result Comment: Canc elled via OM: Order cancelled - Patient discharged Performed By: #### L 500.4050, L100.0100 ####[facility] [address] [place], [address] HGB Normal 12.0-15.0 [facility] Comment on above: Result Comment: Canc elled via OM: Order cancelled - Patient discharged Performed By: #### L 500.4050, L100.0100 ####[facility] [address] [place], [address] MCH Normal 27.0-32.0 [facility] Comment on above: Result Comment: Canc elled via OM: Order cancelled - Patient discharged Performed By: #### L 500.4050, L100.0100 ####[facility] [address] [place], [address] MCHC Normal 32-36 [facility] Comment on above: Result Comment: Canc elled via OM: Order cancelled - Patient discharged Performed By: #### L 500.4050, L100.0100 ####[facility] [address] [place], [address] MCV Normal 81-99 [facility] Comment on above: Result Comment: Canc elled via OM: Order cancelled - Patient discharged Performed By: #### L 500.4050, L100.0100 ####[facility] [address] [place], [address] NEUT% Normal 47-70 [facility] Comment on above: Result Comment: Canc elled via OM: Order cancelled - Patient discharged Performed By: #### L 500.4050, L100.0100 ####[facility] [address] [place], [address] PLT Normal 150-450 [facility] Comment on above: Result Comment: Canc elled via OM: Order cancelled - Patient discharged Performed By: #### L 500.4050, L100.0100 ####[facility] [address] [place], [address] RBC Normal 4.2-5.4 [facility] Comment on above: Result Comment: Canc elled via OM: Order cancelled - Patient discharged Performed By: #### L 500.4050, L100.0100 ####[facility] [address] [place], [address] RDW CV Normal 11.6-14.6 [facility] Comment on above: Result Comment: Canc elled via OM: Order cancelled - Patient discharged Performed By: #### L 500.4050, L100.0100 ####[facility] [address] [place], [address] RDW SD Normal 35.1-43.9 [facility] Comment on above: Result Comment: Canc elled via OM: Order cancelled - Patient discharged Performed By: #### L 500.4050, L100.0100 ####[facility] [address] [place], [address] WBC Normal 4.4-11.0 [facility] Comment on above: Result Comment: Canc elled via OM: Order cancelled - Patient discharged Performed By: #### L 500.4050, L100.0100 ####[facility] [address] [place], [address] Absolute Lymph 1.61 X10 3/uL Normal 0.83-4.51 [facility] Comment on above: Performed By: #### L 100.0100, L500.4050 ####[facility] [address] [place], [address] Absolute Neut 2.7 X10 3/uL Normal 2.0-7.7 [facility] Comment on above: Performed By: #### L 100.0100, L500.4050 ####[facility] [address] [place], [address] Basophils/100 WBC (Bld) 1.0 % Normal 0-1 [facility] Comment on above: Performed By: #### L 100.0100, L500.4050 ####[facility] [address] [place], [address] Eosinophils/100 WBC (Bld) 4.1 % Normal 0-5 [facility] Comment on above: Performed By: #### L 100.0100, L500.4050 ####[facility] [address] [place], [address] Erythrocyte distribution width (RBC) [Ratio] 14.0 % Normal 11.6-14.6 [facility] Comment on above: Performed By: #### L 100.0100, L500.4050 ####[facility] [address] [place], [address] Hematocrit (Bld) [Volume fraction] 27.5 % Low 37-47 [facility] Comment on above: Performed By: #### L 100.0100, L500.4050 ####[facility] [address] [place], [address] Hemoglobin (Bld) [Mass/Vol] 9.1 g/dL Low 12.0-15.0 [facility] Comment on above: Performed By: #### L 100.0100, L500.4050 ####[facility] [address] [place], [address] IG% 0.400 Normal 0.0-0.9 [facility] Comment on above: Result Comment: IG% - Immature Granulocytes (promyelocytes, myelocytes andmetamyelocytes) > 1% indicates that a LEFT SHIFT is Present. Performed By: #### L 100.0100, L500.4050 ####[facility] [address] [place], [address] Lymphocytes/100 WBC (Bld) 31.8 % Normal 19-41 [facility] Comment on above: Performed By: #### L 100.0100, L500.4050 ####[facility] [address] [place], [address] MCH (RBC) [Entitic mass] 31.2 pg Normal 27.0-32.0 [facility] Comment on above: Performed By: #### L 100.0100, L500.4050 ####[facility] [address] [place], [address] MCHC (RBC) [Mass/Vol] 33.1 g/dL Normal 32-36 [facility] Comment on above: Performed By: #### L 100.0100, L500.4050 ####[facility] [address] [place], [address] MCV (RBC) [Entitic vol] 94.2 fL Normal 81-99 [facility] Comment on above: Performed By: #### L 100.0100, L500.4050 ####[facility] [address] [place], [address] Monocytes/100 WBC (Bld) 9.1 % Normal 0-10 [facility] Comment on above: Performed By: #### L 100.0100, L500.4050 ####[facility] [address] [place], [address] Neutrophils/100 WBC (Bld) 53.6 % Normal 47-70 [facility] Comment on above: Performed By: #### L 100.0100, L500.4050 ####[facility] [address] [place], [address] Nucleated RBC (Bld) [#/Vol] 0 10*3/uL Normal 0-5 [facility] Comment on above: Performed By: #### L 100.0100, L500.4050 ####[facility] [address] [place], [address] Platelet mean volume (Bld) [Entitic vol] 9.9 fL Normal 6.2-12.0 [facility] Comment on above: Performed By: #### L 100.0100, L500.4050 ####[facility] [address] [place], [address] Platelets (Bld) [#/Vol] 347 10*3/uL Normal 150-450 [facility] Comment on above: Performed By: #### L 100.0100, L500.4050 ####[facility] [address] [place], [address] RBC (Bld) [#/Vol] 2.92 10*6/uL Low 4.2-5.4 [facility] Comment on above: Performed By: #### L 100.0100, L500.4050 ####[facility] [address] [place], [address] RDW SD 48.6 fl High 35.1-43.9 [facility] Comment on above: Performed By: #### L 100.0100, L500.4050 ####[facility] [address] [place], [address] WBC (Bld) [#/Vol] 5.1 10*3/uL Normal 4.4-11.0 [facility] Comment on above: Performed By: #### L 100.0100, L500.4050 ####[facility] [address] [place], [address] Comprehensive Metabolic Prof ilon 09-28-2024 Albumin [Mass/Vol] 2.5 g/dL Low 3.4-4.8 [facility] Comment on above: Performed By: #### L 100.0100, L500.4050 ####[facility] [address] [place], [address] Albumin/Globulin [Mass ratio] 0.9 {ratio} Normal 0.9-2.4 [facility] Comment on above: Performed By: #### L 100.0100, L500.4050 ####[facility] [address] [place], [address] ALK PHOS 82 U/L Normal 35-104 [facility] Comment on above: Performed By: #### L 100.0100, L500.4050 ####[facility] [address] [place], [address] ALT [Catalytic activity/Vol] 14 U/L Normal <=34 [facility] Comment on above: Performed By: #### L 100.0100, L500.4050 ####[facility] [address] [place], [address] AST [Catalytic activity/Vol] 33 U/L High <=31 [facility] Comment on above: Performed By: #### L 100.0100, L500.4050 ####[facility] [address] [place], [address] Bilirubin [Mass/Vol] 0.26 mg/dL Normal 0.00-1.30 [facility] Comment on above: Performed By: #### L 100.0100, L500.4050 ####[facility] [address] [place], [address] BUN/CRE 12.2 RATIO Normal 10-20 [facility] Comment on above: Performed By: #### L 100.0100, L500.4050 ####[facility] [address] [place], [address] Calcium [Mass/Vol] 8.2 mg/dL Normal 7.6-11.0 [facility] Comment on above: Performed By: #### L 100.0100, L500.4050 ####[facility] [address] [place], [address] Chloride [Moles/Vol] 109 mmol/L High 98-108 [facility] Comment on above: Performed By: #### L 100.0100, L500.4050 ####[facility] [address] [place], [address] CO2 [Moles/Vol] 23.4 mmol/L Normal 21.0-32.0 [facility] Comment on above: Performed By: #### L 100.0100, L500.4050 ####[facility] [address] [place], [address] Creatinine [Mass/Vol] 0.77 mg/dL Normal 0.70-1.20 [facility] Comment on above: Performed By: #### L 100.0100, L500.4050 ####[facility] [address] [place], [address] ECRCL 46.56 ml/min Low 50-250 [facility] Comment on above: Performed By: #### L 100.0100, L500.4050 ####[facility] [address] [place], [address] GAP 8 Normal 5-15 [facility] Comment on above: Performed By: #### L 100.0100, L500.4050 ####[facility] [address] [place], [address] GFR/1.73 sq M.predicted among non-blacks MDRD (S/P/Bld) [Vol rate/Area] 82 mL/min/{1.73_m2} Normal >60 [facility] Comment on above: Result Comment: mL/m in/1.73m2 CKD-EPI Creatinine Equation (2020) Performed By: #### L 100.0100, L500.4050 ####[facility] [address] [place], [address] Globulin (S) [Mass/Vol] 2.7 g/dL Normal 2.2-4.2 [facility] Comment on above: Performed By: #### L 100.0100, L500.4050 ####[facility] [address] [place], [address] Glucose [Mass/Vol] 82 mg/dL Normal 70-99 [facility] Comment on above: Performed By: #### L 100.0100, L500.4050 ####[facility] [address] [place], [address] Potassium [Moles/Vol] 3.3 mmol/L Normal 3.3-5.1 [facility] Comment on above: Performed By: #### L 100.0100, L500.4050 ####[facility] [address] [place], [address] Sodium [Moles/Vol] 140 mmol/L Normal 133-145 [facility] Comment on above: Performed By: #### L 100.0100, L500.4050 ####[facility] [address] [place], [address] T PROT 5.2 g/dL Low 5.9-8.4 [facility] Comment on above: Performed By: #### L 100.0100, L500.4050 ####[facility] [address] [place], [address] Urea nitrogen [Mass/Vol] 9 mg/dL Normal 4-19 [facility] Comment on above: Performed By: #### L 100.0100, L500.4050 ####[facility] [address] [place], [address] ALB Normal 3.4-4.8 [facility] Comment on above: Result Comment: Canc elled via OM: Order cancelled - Patient discharged Performed By: #### L 500.4050, L100.0100 ####[facility] [address] [place], [address] ALK PHOS Normal 35-104 [facility] Comment on above: Result Comment: Canc elled via OM: Order cancelled - Patient discharged Performed By: #### L 500.4050, L100.0100 ####[facility] [address] [place], [address] ALT Normal <=34 [facility] Comment on above: Result Comment: Canc elled via OM: Order cancelled - Patient discharged Performed By: #### L 500.4050, L100.0100 ####[facility] [address] [place], [address] AST Normal <=31 [facility] Comment on above: Result Comment: Canc elled via OM: Order cancelled - Patient discharged Performed By: #### L 500.4050, L100.0100 ####[facility] [address] [place], [address] BUN Normal 4-19 [facility] Comment on above: Result Comment: Canc elled via OM: Order cancelled - Patient discharged Performed By: #### L 500.4050, L100.0100 ####[facility] [address] [place], [address] BUN/CRE Normal 10-20 [facility] Comment on above: Result Comment: Canc elled via OM: Order cancelled - Patient discharged Performed By: #### L 500.4050, L100.0100 ####[facility] [address] [place], [address] Calcium Normal 7.6-11.0 [facility] Comment on above: Result Comment: Canc elled via OM: Order cancelled - Patient discharged Performed By: #### L 500.4050, L100.0100 ####[facility] [address] [place], [address] CL Normal 98-108 [facility] Comment on above: Result Comment: Canc elled via OM: Order cancelled - Patient discharged Performed By: #### L 500.4050, L100.0100 ####[facility] [address] [place], [address] CO2 Normal 21.0-32.0 [facility] Comment on above: Result Comment: Canc elled via OM: Order cancelled - Patient discharged Performed By: #### L 500.4050, L100.0100 ####[facility] [address] [place], [address] CREAT,SERUM Normal 0.70-1.20 [facility] Comment on above: Result Comment: Canc elled via OM: Order cancelled - Patient discharged Performed By: #### L 500.4050, L100.0100 ####[facility] [address] [place], [address] eGFR Normal >60 [facility] Comment on above: Result Comment: Canc elled via OM: Order cancelled - Patient discharged Performed By: #### L 500.4050, L100.0100 ####[facility] [address] [place], [address] GAP Normal 5-15 [facility] Comment on above: Result Comment: Canc elled via OM: Order cancelled - Patient discharged Performed By: #### L 500.4050, L100.0100 ####[facility] [address] [place], [address] GLU Normal 70-99 [facility] Comment on above: Result Comment: Canc elled via OM: Order cancelled - Patient discharged Performed By: #### L 500.4050, L100.0100 ####[facility] [address] [place], [address] Potassium Normal 3.3-5.1 [facility] Comment on above: Result Comment: Canc elled via OM: Order cancelled - Patient discharged Performed By: #### L 500.4050, L100.0100 ####[facility] [address] [place], [address] T BILI Normal 0.00-1.30 [facility] Comment on above: Result Comment: Canc elled via OM: Order cancelled - Patient discharged Performed By: #### L 500.4050, L100.0100 ####[facility] [address] [place], [address] T PROT Normal 5.9-8.4 [facility] Comment on above: Result Comment: Canc elled via OM: Order cancelled - Patient discharged Performed By: #### L 500.4050, L100.0100 ####[facility] [address] [place], [address] Comprehensive Metabolic Profil Normal 133-145 [facility] Comment on above: Result Comment: Canc elled via OM: Order cancelled - Patient discharged Performed By: #### L 500.4050, L100.0100 ####[facility] [address] [place], [address] Nucleated red blood cell per centageOrdered By: Anastasia Khan on 09-28-2024 Nucleated RBC/100 WBC (Bld) [Ratio] 0 % 0-5 [facility] 12 Lead EKGon 09-27-2024 12 Lead EKG Normal [facility] Absolute lymphocyte countOrd ered By: Dimitry Rosales on 09-27-2024 Lymphocytes Auto (Unsp spec) [#/Vol] 0.97 10*3/uL 0.83-4.51 [facility] Absolute neutrophil countOrd ered By: Dimitry Rosales on 09-27-2024 Neutrophils (Bld) [#/Vol] 6.8 10*3/uL 2.0-7.7 [facility] Ammoniaon 09-27-2024 Ammonia (P) [Moles/Vol] 12.1 umol/L Normal -51 [facility] Comment on above: Performed By: #### L 100.0100, L503.5510, L500.4050 ####[facility] [address] [place], [place], [address] Anion gap in Serum or Plasma Ordered By: Dimitry Rosales on 09-27-2024 Anion gap [Moles/Vol] 12 mmol/L 5-15 [facility] Automated lymphocyte count a s percentage of total leukocytesOrdered By: Dimitry Rosales on 09-27-2024 Lymphocytes/100 WBC Auto (Unsp spec) 11.4 % Low 19-41 [facility] BUN/creatinine ratioOrdered By: Dimitry Rosales on 09-27-2024 Urea nitrogen/Creatinine [Mass ratio] 10.3 mg/mg 10-20 [facility] Basophil percentageOrdered B y: Dimitry Rosales on 09-27-2024 Basophils/100 WBC (Bld) 0.5 % 0-1 [facility] Bilirubin Test strip Ql (U)O rdered By: Dimitry Rosales on 09-27-2024 Bilirubin Ql (U) Negative Negative [facility] Bilirubin, totalOrdered By: Dimitry Rosales on 09-27-2024 Bilirubin [Mass/Vol] 0.31 mg/dL 0.00-1.30 [facility] Brain/Head without Contrasto n 09-27-2024 Brain/Head without Contrast Normal [facility] CBC W/Diff, Automatedon 09-16 Absolute Lymph 0.97 X10 3/uL Normal 0.83-4.51 [facility] Comment on above: Performed By: #### L 100.0100, L503.5510, L500.4050 ####[facility] [address] [place], [address] Absolute Neut 6.8 X10 3/uL Normal 2.0-7.7 [facility] Comment on above: Performed By: #### L 100.0100, L503.5510, L500.4050 ####[facility] [address] [place], [address] Basophils/100 WBC (Bld) 0.5 % Normal 0-1 [facility] Comment on above: Performed By: #### L 100.0100, L503.5510, L500.4050 ####[facility] [address] [place], [address] Eosinophils/100 WBC (Bld) 1.1 % Normal 0-5 [facility] Comment on above: Performed By: #### L 100.0100, L503.5510, L500.4050 ####[facility] [address] [place], [address] Erythrocyte distribution width (RBC) [Ratio] 14.0 % Normal 11.6-14.6 [facility] Comment on above: Performed By: #### L 100.0100, L503.5510, L500.4050 ####[facility] [address] [place], [address] Hematocrit (Bld) [Volume fraction] 33.7 % Low 37-47 [facility] Comment on above: Performed By: #### L 100.0100, L503.5510, L500.4050 ####[facility] [address] [place], [address] Hemoglobin (Bld) [Mass/Vol] 10.9 g/dL Low 12.0-15.0 [facility] Comment on above: Performed By: #### L 100.0100, L503.5510, L500.4050 ####[facility] [address] [place], [address] IG% 0.600 Normal 0.0-0.9 [facility] Comment on above: Result Comment: IG% - Immature Granulocytes (promyelocytes, myelocytes andmetamyelocytes) > 1% indicates that a LEFT SHIFT is Present. Performed By: #### L 100.0100, L503.5510, L500.4050 ####[facility] [address] [place], [address] Lymphocytes/100 WBC (Bld) 11.4 % Low 19-41 [facility] Comment on above: Performed By: #### L 100.0100, L503.5510, L500.4050 ####[facility] [address] [place], [address] MCH (RBC) [Entitic mass] 30.9 pg Normal 27.0-32.0 [facility] Comment on above: Performed By: #### L 100.0100, L503.5510, L500.4050 ####[facility] [address] [place], [address] MCHC (RBC) [Mass/Vol] 32.3 g/dL Normal 32-36 [facility] Comment on above: Performed By: #### L 100.0100, L503.5510, L500.4050 ####[facility] [address] [place], [address] MCV (RBC) [Entitic vol] 95.5 fL Normal 81-99 [facility] Comment on above: Performed By: #### L 100.0100, L503.5510, L500.4050 ####[facility] [address] [place], [address] Monocytes/100 WBC (Bld) 5.9 % Normal 0-10 [facility] Comment on above: Performed By: #### L 100.0100, L503.5510, L500.4050 ####[facility] [address] [place], [address] Neutrophils/100 WBC (Bld) 80.5 % High 47-70 [facility] Comment on above: Performed By: #### L 100.0100, L503.5510, L500.4050 ####[facility] [address] [place], [address] Nucleated RBC (Bld) [#/Vol] 0 10*3/uL Normal 0-5 [facility] Comment on above: Performed By: #### L 100.0100, L503.5510, L500.4050 ####[facility] [address] [place], [address] Platelet mean volume (Bld) [Entitic vol] 10.3 fL Normal 6.2-12.0 [facility] Comment on above: Performed By: #### L 100.0100, L503.5510, L500.4050 ####[facility] [address] [place], [address] Platelets (Bld) [#/Vol] 374 10*3/uL Normal 150-450 [facility] Comment on above: Performed By: #### L 100.0100, L503.5510, L500.4050 ####[facility] [address] [place], [address] RBC (Bld) [#/Vol] 3.53 10*6/uL Low 4.2-5.4 [facility] Comment on above: Performed By: #### L 100.0100, L503.5510, L500.4050 ####[facility] [address] [place], [address] RDW SD 48.4 fl High 35.1-43.9 [facility] Comment on above: Performed By: #### L 100.0100, L503.5510, L500.4050 ####[facility] [address] [place], [address] WBC (Bld) [#/Vol] 8.5 10*3/uL Normal 4.4-11.0 [facility] Comment on above: Performed By: #### L 100.0100, L503.5510, L500.4050 ####[facility] [address] [place], [address] Absolute Neut Normal 2.0-7.7 [facility] Comment on above: Result Comment: Canc elled via OM: Order cancelled - Patient discharged Performed By: #### L 500.4050, L100.0100 ####[facility] [address] [place], [address] HCT Normal 37-47 [facility] Comment on above: Result Comment: Canc elled via OM: Order cancelled - Patient discharged Performed By: #### L 500.4050, L100.0100 ####[facility] [address] [place], [address] HGB Normal 12.0-15.0 [facility] Comment on above: Result Comment: Canc elled via OM: Order cancelled - Patient discharged Performed By: #### L 500.4050, L100.0100 ####[facility] [address] [place], [address] MCH Normal 27.0-32.0 [facility] Comment on above: Result Comment: Canc elled via OM: Order cancelled - Patient discharged Performed By: #### L 500.4050, L100.0100 ####[facility] [address] [place], [address] MCHC Normal 32-36 [facility] Comment on above: Result Comment: Canc elled via OM: Order cancelled - Patient discharged Performed By: #### L 500.4050, L100.0100 ####[facility] [address] [place], [address] MCV Normal 81-99 [facility] Comment on above: Result Comment: Canc elled via OM: Order cancelled - Patient discharged Performed By: #### L 500.4050, L100.0100 ####[facility] [address] [place], [address] NEUT% Normal 47-70 [facility] Comment on above: Result Comment: Canc elled via OM: Order cancelled - Patient discharged Performed By: #### L 500.4050, L100.0100 ####[facility] [address] [place], [address] PLT Normal 150-450 [facility] Comment on above: Result Comment: Canc elled via OM: Order cancelled - Patient discharged Performed By: #### L 500.4050, L100.0100 ####[facility] [address] [place], [address] RBC Normal 4.2-5.4 [facility] Comment on above: Result Comment: Canc elled via OM: Order cancelled - Patient discharged Performed By: #### L 500.4050, L100.0100 ####[facility] [address] [place], [address] RDW CV Normal 11.6-14.6 [facility] Comment on above: Result Comment: Canc elled via OM: Order cancelled - Patient discharged Performed By: #### L 500.4050, L100.0100 ####[facility] [address] [place], [address] RDW SD Normal 35.1-43.9 [facility] Comment on above: Result Comment: Canc elled via OM: Order cancelled - Patient discharged Performed By: #### L 500.4050, L100.0100 ####[facility] [address] [place], [address] WBC Normal 4.4-11.0 [facility] Comment on above: Result Comment: Canc elled via OM: Order cancelled - Patient discharged Performed By: #### L 500.4050, L100.0100 ####[facility] [address] [place], [address] Carbon dioxide, total [Moles /volume] in Central venous bloodOrdered By: Dimitry Rosales on 09-27-2024 CO2 [Moles/Vol] 24.3 mmol/L 21.0-32.0 [facility] Chest 1 View (Portable)on Chest 1 View (Portable) Normal [facility] Chloride assayOrdered By: Jovanna Rosales on 09-27-2024 Chloride [Moles/Vol] 105 mmol/L 98-108 [facility] Comprehensive Metabolic Prof ilon 09-27-2024 Albumin [Mass/Vol] 3.1 g/dL Low 3.4-4.8 [facility] Comment on above: Performed By: #### L 100.0100, L503.5510, L500.4050 ####[facility] [address] [place], [address] Albumin/Globulin [Mass ratio] 0.9 {ratio} Normal 0.9-2.4 [facility] Comment on above: Performed By: #### L 100.0100, L503.5510, L500.4050 ####[facility] [address] [place], [address] ALK PHOS 102 U/L Normal 35-104 [facility] Comment on above: Performed By: #### L 100.0100, L503.5510, L500.4050 ####[facility] [address] [place], [address] ALT [Catalytic activity/Vol] 20 U/L Normal <=34 [facility] Comment on above: Performed By: #### L 100.0100, L503.5510, L500.4050 ####[facility] [address] [place], [address] AST [Catalytic activity/Vol] 44 U/L High <=31 [facility] Comment on above: Performed By: #### L 100.0100, L503.5510, L500.4050 ####[facility] [address] [place], [address] Bilirubin [Mass/Vol] 0.31 mg/dL Normal 0.00-1.30 [facility] Comment on above: Performed By: #### L 100.0100, L503.5510, L500.4050 ####[facility] [address] [place], [address] BUN/CRE 10.3 RATIO Normal 10-20 [facility] Comment on above: Performed By: #### L 100.0100, L503.5510, L500.4050 ####[facility] [address] [place], [address] Calcium [Mass/Vol] 8.9 mg/dL Normal 7.6-11.0 [facility] Comment on above: Performed By: #### L 100.0100, L503.5510, L500.4050 ####[facility] [address] [place], [address] Chloride [Moles/Vol] 105 mmol/L Normal 98-108 [facility] Comment on above: Performed By: #### L 100.0100, L503.5510, L500.4050 ####[facility] [address] [place], [address] CO2 [Moles/Vol] 24.3 mmol/L Normal 21.0-32.0 [facility] Comment on above: Performed By: #### L 100.0100, L503.5510, L500.4050 ####[facility] [address] [place], [address] Creatinine [Mass/Vol] 0.85 mg/dL Normal 0.70-1.20 [facility] Comment on above: Performed By: #### L 100.0100, L503.5510, L500.4050 ####[facility] [address] [place], [address] ECRCL 44.18 ml/min Low 50-250 [facility] Comment on above: Performed By: #### L 100.0100, L503.5510, L500.4050 ####[facility] [address] [place], [address] GAP 12 Normal 5-15 [facility] Comment on above: Performed By: #### L 100.0100, L503.5510, L500.4050 ####[facility] [address] [place], [address] GFR/1.73 sq M.predicted among non-blacks MDRD (S/P/Bld) [Vol rate/Area] 72 mL/min/{1.73_m2} Normal >60 [facility] Comment on above: Result Comment: mL/m in/1.73m2 CKD-EPI Creatinine Equation (2020) Performed By: #### L 100.0100, L503.5510, L500.4050 ####[facility] [address] [place], [address] Globulin (S) [Mass/Vol] 3.5 g/dL Normal 2.2-4.2 [facility] Comment on above: Performed By: #### L 100.0100, L503.5510, L500.4050 ####[facility] [address] [place], [address] Glucose [Mass/Vol] 118 mg/dL High 70-99 [facility] Comment on above: Performed By: #### L 100.0100, L503.5510, L500.4050 ####[facility] [address] [place], [address] Potassium [Moles/Vol] 3.3 mmol/L Normal 3.3-5.1 [facility] Comment on above: Performed By: #### L 100.0100, L503.5510, L500.4050 ####[facility] [address] [place], [address] Sodium [Moles/Vol] 141 mmol/L Normal 133-145 [facility] Comment on above: Performed By: #### L 100.0100, L503.5510, L500.4050 ####[facility] [address] [place], [address] T PROT 6.6 g/dL Normal 5.9-8.4 [facility] Comment on above: Performed By: #### L 100.0100, L503.5510, L500.4050 ####[facility] [address] [place], [address] Urea nitrogen [Mass/Vol] 9 mg/dL Normal 4-19 [facility] Comment on above: Performed By: #### L 100.0100, L503.5510, L500.4050 ####[facility] [address] [place], [address] ALB Normal 3.4-4.8 [facility] Comment on above: Result Comment: Canc elled via OM: Order cancelled - Patient discharged Performed By: #### L 500.4050, L100.0100 ####[facility] [address] [place], [address] ALK PHOS Normal 35-104 [facility] Comment on above: Result Comment: Canc elled via OM: Order cancelled - Patient discharged Performed By: #### L 500.4050, L100.0100 ####[facility] [address] [place], [address] ALT Normal <=34 [facility] Comment on above: Result Comment: Canc elled via OM: Order cancelled - Patient discharged Performed By: #### L 500.4050, L100.0100 ####[facility] [address] [place], [address] AST Normal <=31 [facility] Comment on above: Result Comment: Canc elled via OM: Order cancelled - Patient discharged Performed By: #### L 500.4050, L100.0100 ####[facility] [address] [place], [address] BUN Normal 4-19 [facility] Comment on above: Result Comment: Canc elled via OM: Order cancelled - Patient discharged Performed By: #### L 500.4050, L100.0100 ####[facility] [address] [place], [address] BUN/CRE Normal 10-20 [facility] Comment on above: Result Comment: Canc elled via OM: Order cancelled - Patient discharged Performed By: #### L 500.4050, L100.0100 ####[facility] [address] [place], [address] Calcium Normal 7.6-11.0 [facility] Comment on above: Result Comment: Canc elled via OM: Order cancelled - Patient discharged Performed By: #### L 500.4050, L100.0100 ####[facility] [address] [place], [address] CL Normal 98-108 [facility] Comment on above: Result Comment: Canc elled via OM: Order cancelled - Patient discharged Performed By: #### L 500.4050, L100.0100 ####[facility] [address] [place], [address] CO2 Normal 21.0-32.0 [facility] Comment on above: Result Comment: Canc elled via OM: Order cancelled - Patient discharged Performed By: #### L 500.4050, L100.0100 ####[facility] [address] [place], [address] CREAT,SERUM Normal 0.70-1.20 [facility] Comment on above: Result Comment: Canc elled via OM: Order cancelled - Patient discharged Performed By: #### L 500.4050, L100.0100 ####[facility] [address] [place], [address] eGFR Normal >60 [facility] Comment on above: Result Comment: Canc elled via OM: Order cancelled - Patient discharged Performed By: #### L 500.4050, L100.0100 ####[facility] [address] [place], [address] GAP Normal 5-15 [facility] Comment on above: Result Comment: Canc elled via OM: Order cancelled - Patient discharged Performed By: #### L 500.4050, L100.0100 ####[facility] [address] [place], [address] GLU Normal 70-99 [facility] Comment on above: Result Comment: Canc elled via OM: Order cancelled - Patient discharged Performed By: #### L 500.4050, L100.0100 ####[facility] [address] [place], [address] Potassium Normal 3.3-5.1 [facility] Comment on above: Result Comment: Canc elled via OM: Order cancelled - Patient discharged Performed By: #### L 500.4050, L100.0100 ####[facility] [address] [place], [address] T BILI Normal 0.00-1.30 [facility] Comment on above: Result Comment: Canc elled via OM: Order cancelled - Patient discharged Performed By: #### L 500.4050, L100.0100 ####[facility] [address] [place], [address] T PROT Normal 5.9-8.4 [facility] Comment on above: Result Comment: Canc elled via OM: Order cancelled - Patient discharged Performed By: #### L 500.4050, L100.0100 ####[facility] [address] [place], [address] Comprehensive Metabolic Profil Normal 133-145 [facility] Comment on above: Result Comment: Canc elled via OM: Order cancelled - Patient discharged Performed By: #### L 500.4050, L100.0100 ####[facility] [address] [place], [address] Culture, Blood (WB)on 2024 CUB Blood cultures x2, f rom two different sites No growth in 5 days. Normal [facility] Comment on above: Performed By: #### M 200.1000 ####[facility] [address] [place], [address] Emergency Department Summary on 09-27-2024 Emergency Department Summary Normal [facility] Eosinophil percentageOrdered By: Dimitry Rosales on 09-27-2024 Eosinophils/100 WBC (Bld) 1.1 % 0-5 [facility] [facility] Erythrocyte distribution wid th ratioOrdered By: Dimitry Rosales on 09-27-2024 Erythrocyte distribution width (RBC) [Ratio] 14.0 % 11.6-14.6 [facility] Erythrocyte distribution wid th standard deviationOrdered By: Dimitry Rosales on 09-27-2024 Erythrocyte distribution width (RBC) [Ratio] 48.4 fl High 35.1-43.9 [facility] Glomerular filtration rate ( GFR) estimation/1.73 sq m using serum, plasma, or whole bOrdered By: Dimitry Rosales on 09-27-2024 GFR/1.73 sq M.predicted among non-blacks MDRD (S/P/Bld) [Vol rate/Area] 72 mL/min/{1.73_m2} >60 [facility] Comment on above: mL/min/1.73m2 CKD-EP I Creatinine Equation (2020) H AND P Exam - [facility] 09-27-2024 H&P Exam - Hospitalist Normal [facility] Hematocrit Auto (Bld) [Volum e fraction]Ordered By: Dimitry Rosales on 09-27-2024 Hematocrit (Bld) [Volume fraction] 33.7 % Low 37-47 [facility] Hemoglobin measurementOrdere d By: Dimitry Rosales on 09-27-2024 Hemoglobin (Bld) [Mass/Vol] 10.9 g/dL Low 12.0-15.0 [facility] Immature granulocytes/100 WB C Auto (Bld)Ordered By: Dimitry Rosales on 09-27-2024 Immature granulocytes/100 WBC (Bld) 0.600 % 0.0-0.9 [facility] Comment on above: IG% - Immature Granu locytes (promyelocytes, myelocytes and metamyelocytes) > 1% indicates that a LEFT SHIFT is Present. Influenza virus A and B and SARS-CoV-2 (COVID-19) and Respiratory syncytial virus RNAOrdered By: Dimitry Rosales on 09-27-2024 SARS-CoV-2 (COVID-19) RNA ANTIONE+probe Ql (Unsp spec) [facility] Ketones Test strip Ql (U)Ord ered By: Dimitry Rosales on 09-27-2024 Ketones Ql (U) Negative Negative [facility] Laboratory - Chemistry and C hemistry - challengeOrdered By: Dimitry Rosales on 09-27-2024 AST [Catalytic activity/Vol] 44 U/L High <32 [facility] M100.678on 09-27-2024 M100.678 SARS-CoV-2 (COVID 19 ) Negative INFLUENZA A Negative INFLUENZA B Negative RSV PCR Negative Normal [facility] Comment on above: Performed By: #### L 400.0001, M100.678 ####[facility] [address] [place], [address] MCV (mean corpuscular volume ) determinationOrdered By: Dimitry Rosales on 09-27-2024 MCV (RBC) [Entitic vol] 95.5 fL 81-99 [facility] Mean corpuscular hemoglobin (MCH) determinationOrdered By: Dimitry Rosales on 09-27-2024 MCH (RBC) [Entitic mass] 30.9 pg 27.0-32.0 [facility] Mean corpuscular hemoglobin concentration (MCHC) determinationOrdered By: Dimitry Rosales on 09-27-2024 MCHC (RBC) [Mass/Vol] 32.3 g/dL 32-36 [facility] Mean platelet volume determi nationOrdered By: Dimitry Rosales on 09-27-2024 Platelet mean volume (Bld) [Entitic vol] 10.3 fL 6.2-12.0 [facility] Microscopic analysis of urin e for red blood cells (RBC)Ordered By: Dimitry Rosales on 09-27-2024 Microscopic analysis of urine for red blood cells (RBC) 0-5 SEEN /hpf 0-5 [facility] Monocyte percentageOrdered B y: Dimitry Rosales on 09-27-2024 Monocytes/100 WBC (Bld) 5.9 % 0-10 [facility] Mucus LM Ql (Urine sed)Order ed By: Dimitry Rosales on 09-27-2024 Mucus Ql (Urine sed) 0 SEEN /hpf [facility] Neutrophil percentageOrdered By: Dimitry Rosales on 09-27-2024 Neutrophils/100 WBC (Bld) 80.5 % High 47-70 [facility] Nitrite Test strip Ql (U)Ord ered By: Dimitry Rosales on 09-27-2024 Nitrite Ql (U) Negative Negative [facility] Nucleated red blood cell per centageOrdered By: Dimitry Rosales on 09-27-2024 Nucleated RBC/100 WBC (Bld) [Ratio] 0 % 0-5 [facility] Pelvis 1 or 2 Viewson 2024 Pelvis 1 or 2 Views Normal [facility] Platelet countOrdered By: Jovanna Rosales on 09-27-2024 Platelets (Bld) [#/Vol] 374 10*3/uL 150-450 [facility] Potassium measurement (mass/ volume)Ordered By: Dimitry Rosales on 09-27-2024 Potassium (Unsp spec) [Mass/Vol] 3.3 mmol/L 3.3-5.1 [facility] Protein Test strip Ql (U)Ord ered By: Dimitry Rosales on 09-27-2024 Protein Ql (U) 30 mg/dl High Negative [facility] RBC Auto (Bld) [#/Vol]Ordere d By: Dimitry Rosales on 09-27-2024 RBC (Bld) [#/Vol] 3.53 10*6/uL Low 4.2-5.4 [facility] Serum creatinine measurement (mass/volume)Ordered By: Dimitry Rosales on 09-27-2024 Creatinine [Mass/Vol] 0.85 mg/dL 0.70-1.20 [facility] Serum globulin measurementOr dered By: Dimitry Rosales on 09-27-2024 Globulin (S) [Mass/Vol] 3.5 g/dL 2.2-4.2 [facility] Serum glucose measurement (m ass/volume)Ordered By: Dimitry Rosales on 09-27-2024 Glucose [Mass/Vol] 118 mg/dL High 70-99 [facility] Serum or plasma alanine soliz otransferase (ALT) measurementOrdered By: Dimitry Rosales on 09-27-2024 ALT [Catalytic activity/Vol] 20 U/L <35 [facility] Serum or plasma albumin rosangela urement (mass/volume)Ordered By: Dimitry Rosales on 09-27-2024 Albumin [Mass/Vol] 3.1 g/dL Low 3.4-4.8 [facility] Serum or plasma albumin/glob ulin mass ratioOrdered By: Dimitry Rosales on 09-27-2024 Albumin/Globulin [Mass ratio] 0.9 {ratio} 0.9-2.4 [facility] Serum or plasma alkaline faustino sphatase measurementOrdered By: Dimitry Rosales on 09-27-2024 ALP [Catalytic activity/Vol] 102 U/L 35-104 [facility] Serum or plasma calcium rosangela urement (mass/volume)Ordered By: Dimitry Rosales on 09-27-2024 Calcium [Mass/Vol] 8.9 mg/dL 7.6-11.0 [facility] Serum or plasma urea nitroge n measurement (mass/volume)Ordered By: Dimitry Rosales on 09-27-2024 Urea nitrogen [Mass/Vol] 9 mg/dL 4-19 [facility] Sodium levelOrdered By: Erik Rosales on 09-27-2024 Sodium [Moles/Vol] 141 mmol/L 133-145 [facility] Squamous epithelial cells de tection in urine sediment by light microscopyOrdered By: Dimitry Rosales on 09-27-2024 Epithelial cells.squamous LM Ql (Urine sed) 0 SEEN /hpf 5-10 [facility] Total proteinOrdered By: Carmen Rosales on 09-27-2024 Protein [Mass/Vol] 6.6 g/dL 5.9-8.4 [facility] Urinalysis, Completeon 09-27 WBC 0-5 SEEN Normal 0-5 [facility] Comment on above: Order Comment: CLEAN CATCH Performed By: #### L 400.0001, M100.8 ####[facility] [address] [place], [address] RBC 0-5 SEEN Normal 0-5 [facility] Comment on above: Order Comment: CLEAN CATCH Performed By: #### L 400.0001, M1.8 ####[facility] [address] [place], [address] YEAST 1+ /hpf Normal None Seen [facility] Comment on above: Order Comment: CLEAN CATCH Performed By: #### L 400.0001, M100.678 ####[facility] [address] [place], [address] BACTERIA 0 SEEN Normal None Seen [facility] Comment on above: Order Comment: CLEAN CATCH Performed By: #### L 400.0001, M100.678 ####[facility] [address] [place], [address] EPI,SQUAMOUS 0 SEEN Normal 5-10 [facility] Comment on above: Order Comment: CLEAN CATCH Performed By: #### L 400.0001, M100.678 ####[facility] [address] [place], [address] Mucus Ql (Urine sed) [address] [facility] Comment on above: Order Comment: CLEAN CATCH Performed By: #### L 400.0001, M100.678 ####[facility] [address] [place], [address] Urine clarityOrdered By: Carmen Rosales on 09-27-2024 Clarity (U) Sl. Cloudy Clear [facility] Urine color determinationOrd ered By: Dimitry Rosales on 09-27-2024 Color (U) Yellow Yellow [facility] Urine glucose detectionOrder ed By: Dimitry Rosales on 09-27-2024 Glucose Ql (U) Normal mg/dl Normal [facility] Urine leukocyte esterase det ection by dipstickOrdered By: Dimitry Rosales on 09-27-2024 Leukocyte esterase Test strip Ql (U) 500 /ul High Negative [facility] Urine pHOrdered By: Dimitry Jerome gur on 09-27-2024 pH (U) 6.0 [pH] 5.0 - 8.0 [facility] Urine sediment bacteria coun t by microscopy (number/high power field)Ordered By: Dimitry Rosales on 09-27-2024 Bacteria LM.HPF (Urine sed) [#/Area] 0 /[HPF] None Seen [facility] Urine sediment yeast count b y microscopy (number/high powered field)Ordered By: Dimitry Rosales on 09-27-2024 Yeast LM.HPF (Urine sed) [#/Area] 1 /[HPF] None Seen [facility] Urine specific gravity measu rementOrdered By: Dimitry Rosales on 09-27-2024 Specific gravity (U) [Rel density] 1.015 1.002-1.03 0 [facility] Urine urobilinogen measureme ntOrdered By: Dimitry Rosales on 09-27-2024 Urobilinogen Ql (U) Normal mg/dl Normal [facility] Venous blood ammonia measure mentOrdered By: Dimitry Rosales on 09-27-2024 Ammonia (P) [Moles/Vol] 12.1 umol/L 11-51 [facility] White blood cell (WBC) count Ordered By: Dimitry Rosales on 09-27-2024 WBC (Bld) [#/Vol] 8.5 10*3/uL 4.4-11.0 [facility] White blood cell countOrdere d By: Dimitry Rosales on 09-27-2024 White blood cell count 0-5 SEEN /hpf 0-5 [facility] CBC W/Diff, Automatedon 09-16 Absolute Neut Normal 2.0-7.7 [facility] Comment on above: Result Comment: Canc elled via OM: Order cancelled - Patient discharged Performed By: #### L 500.4050, L100.0100 ####[facility] [address] [place], [address] HCT Normal 37-47 [facility] Comment on above: Result Comment: Canc elled via OM: Order cancelled - Patient discharged Performed By: #### L 500.4050, L100.0100 ####[facility] [address] [place], [address] HGB Normal 12.0-15.0 [facility] Comment on above: Result Comment: Canc elled via OM: Order cancelled - Patient discharged Performed By: #### L 500.4050, L100.0100 ####[facility] [address] [place], [address] MCH Normal 27.0-32.0 [facility] Comment on above: Result Comment: Canc elled via OM: Order cancelled - Patient discharged Performed By: #### L 500.4050, L100.0100 ####[facility] [address] [place], [address] MCHC Normal 32-36 [facility] Comment on above: Result Comment: Canc elled via OM: Order cancelled - Patient discharged Performed By: #### L 500.4050, L100.0100 ####[facility] [address] [place], [address] MCV Normal 81-99 [facility] Comment on above: Result Comment: Canc elled via OM: Order cancelled - Patient discharged Performed By: #### L 500.4050, L100.0100 ####[facility] [address] [place], [address] NEUT% Normal 47-70 [facility] Comment on above: Result Comment: Canc elled via OM: Order cancelled - Patient discharged Performed By: #### L 500.4050, L100.0100 ####[facility] [address] [place], [address] PLT Normal 150-450 [facility] Comment on above: Result Comment: Canc elled via OM: Order cancelled - Patient discharged Performed By: #### L 500.4050, L100.0100 ####[facility] [address] [place], [address] RBC Normal 4.2-5.4 [facility] Comment on above: Result Comment: Canc elled via OM: Order cancelled - Patient discharged Performed By: #### L 500.4050, L100.0100 ####[facility] [address] [place], [address] RDW CV Normal 11.6-14.6 [facility] Comment on above: Result Comment: Canc elled via OM: Order cancelled - Patient discharged Performed By: #### L 500.4050, L100.0100 ####[facility] [address] [place], [address] RDW SD Normal 35.1-43.9 [facility] Comment on above: Result Comment: Canc elled via OM: Order cancelled - Patient discharged Performed By: #### L 500.4050, L100.0100 ####[facility] [address] [place], [address] WBC Normal 4.4-11.0 [facility] Comment on above: Result Comment: Canc elled via OM: Order cancelled - Patient discharged Performed By: #### L 500.4050, L100.0100 ####[facility] [address] [place], [address] Comprehensive Metabolic Prof ilon 09-26-2024 ALB Normal 3.4-4.8 [facility] Comment on above: Result Comment: Canc elled via OM: Order cancelled - Patient discharged Performed By: #### L 500.4050, L100.0100 ####[facility] [address] [place], [address] ALK PHOS Normal 35-104 [facility] Comment on above: Result Comment: Canc elled via OM: Order cancelled - Patient discharged Performed By: #### L 500.4050, L100.0100 ####[facility] [address] [place], [address] ALT Normal <=34 [facility] Comment on above: Result Comment: Canc elled via OM: Order cancelled - Patient discharged Performed By: #### L 500.4050, L100.0100 ####[facility] [address] [place], [address] AST Normal <=31 [facility] Comment on above: Result Comment: Canc elled via OM: Order cancelled - Patient discharged Performed By: #### L 500.4050, L100.0100 ####[facility] [address] [place], [address] BUN Normal 4-19 [facility] Comment on above: Result Comment: Canc elled via OM: Order cancelled - Patient discharged Performed By: #### L 500.4050, L100.0100 ####[facility] [address] [place], [address] BUN/CRE Normal 10-20 [facility] Comment on above: Result Comment: Canc elled via OM: Order cancelled - Patient discharged Performed By: #### L 500.4050, L100.0100 ####[facility] [address] [place], [address] Calcium Normal 7.6-11.0 [facility] Comment on above: Result Comment: Canc elled via OM: Order cancelled - Patient discharged Performed By: #### L 500.4050, L100.0100 ####[facility] [address] [place], [address] CL Normal 98-108 [facility] Comment on above: Result Comment: Canc elled via OM: Order cancelled - Patient discharged Performed By: #### L 500.4050, L100.0100 ####[facility] [address] [place], [address] CO2 Normal 21.0-32.0 [facility] Comment on above: Result Comment: Canc elled via OM: Order cancelled - Patient discharged Performed By: #### L 500.4050, L100.0100 ####[facility] [address] [place], [address] CREAT,SERUM Normal 0.70-1.20 [facility] Comment on above: Result Comment: Canc elled via OM: Order cancelled - Patient discharged Performed By: #### L 500.4050, L100.0100 ####[facility] [address] [place], [address] eGFR Normal >60 [facility] Comment on above: Result Comment: Canc elled via OM: Order cancelled - Patient discharged Performed By: #### L 500.4050, L100.0100 ####[facility] [address] [place], [address] GAP Normal 5-15 [facility] Comment on above: Result Comment: Canc elled via OM: Order cancelled - Patient discharged Performed By: #### L 500.4050, L100.0100 ####[facility] [address] [place], [address] GLU Normal 70-99 [facility] Comment on above: Result Comment: Canc elled via OM: Order cancelled - Patient discharged Performed By: #### L 500.4050, L100.0100 ####[facility] [address] [place], [address] Potassium Normal 3.3-5.1 [facility] Comment on above: Result Comment: Canc elled via OM: Order cancelled - Patient discharged Performed By: #### L 500.4050, L100.0100 ####[facility] [address] [place], [address] T BILI Normal 0.00-1.30 [facility] Comment on above: Result Comment: Canc elled via OM: Order cancelled - Patient discharged Performed By: #### L 500.4050, L100.0100 ####[facility] [address] [place], [address] T PROT Normal 5.9-8.4 [facility] Comment on above: Result Comment: Canc elled via OM: Order cancelled - Patient discharged Performed By: #### L 500.4050, L100.0100 ####[facility] [address] [place], [address] Comprehensive Metabolic Profil Normal 133-145 [facility] Comment on above: Result Comment: Canc elled via OM: Order cancelled - Patient discharged Performed By: #### L 500.4050, L100.0100 ####[facility] [address] [place], [address] CBC W/Diff, Automatedon 07-1 0-2024 Absolute Neut Normal 2.0-7.7 [facility] Comment on above: Result Comment: Canc elled via OM: Order cancelled - Patient discharged Performed By: #### L 100.0100, L500.4050 ####[facility] [address] [place], [address] HCT Normal 37-47 [facility] Comment on above: Result Comment: Canc elled via OM: Order cancelled - Patient discharged Performed By: #### L 100.0100, L500.4050 ####[facility] [address] [place], [address] HGB Normal 12.0-15.0 [facility] Comment on above: Result Comment: Canc elled via OM: Order cancelled - Patient discharged Performed By: #### L 100.0100, L500.4050 ####[facility] [address] [place], [address] MCH Normal 27.0-32.0 [facility] Comment on above: Result Comment: Canc elled via OM: Order cancelled - Patient discharged Performed By: #### L 100.0100, L500.4050 ####[facility] [address] [place], [address] MCHC Normal 32-36 [facility] Comment on above: Result Comment: Canc elled via OM: Order cancelled - Patient discharged Performed By: #### L 100.0100, L500.4050 ####[facility] [address] [place], [address] MCV Normal 81-99 [facility] Comment on above: Result Comment: Canc elled via OM: Order cancelled - Patient discharged Performed By: #### L 100.0100, L500.4050 ####[facility] [address] [place], [address] NEUT% Normal 47-70 [facility] Comment on above: Result Comment: Canc elled via OM: Order cancelled - Patient discharged Performed By: #### L 100.0100, L500.4050 ####[facility] [address] [place], [address] PLT Normal 150-450 [facility] Comment on above: Result Comment: Canc elled via OM: Order cancelled - Patient discharged Performed By: #### L 100.0100, L500.4050 ####[facility] [address] [place], [address] RBC Normal 4.2-5.4 [facility] Comment on above: Result Comment: Canc elled via OM: Order cancelled - Patient discharged Performed By: #### L 100.0100, L500.4050 ####[facility] [address] [place], [address] RDW CV Normal 11.6-14.6 [facility] Comment on above: Result Comment: Canc elled via OM: Order cancelled - Patient discharged Performed By: #### L 100.0100, L500.4050 ####[facility] [address] [place], [address] RDW SD Normal 35.1-43.9 [facility] Comment on above: Result Comment: Canc elled via OM: Order cancelled - Patient discharged Performed By: #### L 100.0100, L500.4050 ####[facility] [address] [place], [address] WBC Normal 4.4-11.0 [facility] Comment on above: Result Comment: Canc elled via OM: Order cancelled - Patient discharged Performed By: #### L 100.0100, L500.4050 ####[facility] [address] [place], [address] Comprehensive Metabolic Prof ilon 09-25-2024 ALB Normal 3.4-4.8 [facility] Comment on above: Result Comment: Canc elled via OM: Order cancelled - Patient discharged Performed By: #### L 100.0100, L500.4050 ####[facility] [address] [place], [address] ALK PHOS Normal 35-104 [facility] Comment on above: Result Comment: Canc elled via OM: Order cancelled - Patient discharged Performed By: #### L 100.0100, L500.4050 ####[facility] [address] [place], [address] ALT Normal <=34 [facility] Comment on above: Result Comment: Canc elled via OM: Order cancelled - Patient discharged Performed By: #### L 100.0100, L500.4050 ####[facility] [address] [place], [address] AST Normal <=31 [facility] Comment on above: Result Comment: Canc elled via OM: Order cancelled - Patient discharged Performed By: #### L 100.0100, L500.4050 ####[facility] [address] [place], [address] BUN Normal 4-19 [facility] Comment on above: Result Comment: Canc elled via OM: Order cancelled - Patient discharged Performed By: #### L 100.0100, L500.4050 ####[facility] [address] [place], [address] BUN/CRE Normal 10-20 [facility] Comment on above: Result Comment: Canc elled via OM: Order cancelled - Patient discharged Performed By: #### L 100.0100, L500.4050 ####[facility] [address] [place], [address] Calcium Normal 7.6-11.0 [facility] Comment on above: Result Comment: Canc elled via OM: Order cancelled - Patient discharged Performed By: #### L 100.0100, L500.4050 ####[facility] [address] [place], [address] CL Normal 98-108 [facility] Comment on above: Result Comment: Canc elled via OM: Order cancelled - Patient discharged Performed By: #### L 100.0100, L500.4050 ####[facility] [address] [place], [address] CO2 Normal 21.0-32.0 [facility] Comment on above: Result Comment: Canc elled via OM: Order cancelled - Patient discharged Performed By: #### L 100.0100, L500.4050 ####[facility] [address] [place], [address] CREAT,SERUM Normal 0.70-1.20 [facility] Comment on above: Result Comment: Canc elled via OM: Order cancelled - Patient discharged Performed By: #### L 100.0100, L500.4050 ####[facility] [address] [place], [address] eGFR Normal >60 [facility] Comment on above: Result Comment: Canc elled via OM: Order cancelled - Patient discharged Performed By: #### L 100.0100, L500.4050 ####[facility] [address] [place], [address] GAP Normal 5-15 [facility] Comment on above: Result Comment: Canc elled via OM: Order cancelled - Patient discharged Performed By: #### L 100.0100, L500.4050 ####[facility] [address] [place], [address] GLU Normal 70-99 [facility] Comment on above: Result Comment: Canc elled via OM: Order cancelled - Patient discharged Performed By: #### L 100.0100, L500.4050 ####[facility] [address] [place], [address] Potassium Normal 3.3-5.1 [facility] Comment on above: Result Comment: Canc elled via OM: Order cancelled - Patient discharged Performed By: #### L 100.0100, L500.4050 ####[facility] [address] [place], [address] T BILI Normal 0.00-1.30 [facility] Comment on above: Result Comment: Canc elled via OM: Order cancelled - Patient discharged Performed By: #### L 100.0100, L500.4050 ####[facility] [address] [place], [address] T PROT Normal 5.9-8.4 [facility] Comment on above: Result Comment: Canc elled via OM: Order cancelled - Patient discharged Performed By: #### L 100.0100, L500.4050 ####[facility] [address] [place], [address] Comprehensive Metabolic Profil Normal 133-145 [facility] Comment on above: Result Comment: Canc elled via OM: Order cancelled - Patient discharged Performed By: #### L 100.0100, L500.4050 ####[facility] [address] [place], [address] CBC W/Diff, Automatedon 07-0 9-2024 Absolute Neut Normal 2.0-7.7 [facility] Comment on above: Result Comment: Canc elled via OM: Order cancelled - Patient discharged Performed By: #### L 500.4050, L100.0100 ####[facility] [address] [place], [address] HCT Normal 37-47 [facility] Comment on above: Result Comment: Canc elled via OM: Order cancelled - Patient discharged Performed By: #### L 500.4050, L100.0100 ####[facility] [address] [place], [address] HGB Normal 12.0-15.0 [facility] Comment on above: Result Comment: Canc elled via OM: Order cancelled - Patient discharged Performed By: #### L 500.4050, L100.0100 ####[facility] [address] [place], [address] MCH Normal 27.0-32.0 [facility] Comment on above: Result Comment: Canc elled via OM: Order cancelled - Patient discharged Performed By: #### L 500.4050, L100.0100 ####[facility] [address] [place], [address] MCHC Normal 32-36 [facility] Comment on above: Result Comment: Canc elled via OM: Order cancelled - Patient discharged Performed By: #### L 500.4050, L100.0100 ####[facility] [address] [place], [address] MCV Normal 81-99 [facility] Comment on above: Result Comment: Canc elled via OM: Order cancelled - Patient discharged Performed By: #### L 500.4050, L100.0100 ####[facility] [address] [place], [address] NEUT% Normal 47-70 [facility] Comment on above: Result Comment: Canc elled via OM: Order cancelled - Patient discharged Performed By: #### L 500.4050, L100.0100 ####[facility] [address] [place], [address] PLT Normal 150-450 [facility] Comment on above: Result Comment: Canc elled via OM: Order cancelled - Patient discharged Performed By: #### L 500.4050, L100.0100 ####[facility] [address] [place], [address] RBC Normal 4.2-5.4 [facility] Comment on above: Result Comment: Canc elled via OM: Order cancelled - Patient discharged Performed By: #### L 500.4050, L100.0100 ####[facility] [address] [place], [address] RDW CV Normal 11.6-14.6 [facility] Comment on above: Result Comment: Canc elled via OM: Order cancelled - Patient discharged Performed By: #### L 500.4050, L100.0100 ####[facility] [address] [place], [address] RDW SD Normal 35.1-43.9 [facility] Comment on above: Result Comment: Canc elled via OM: Order cancelled - Patient discharged Performed By: #### L 500.4050, L100.0100 ####[facility] [address] [place], [address] WBC Normal 4.4-11.0 [facility] Comment on above: Result Comment: Canc elled via OM: Order cancelled - Patient discharged Performed By: #### L 500.4050, L100.0100 ####[facility] [address] [place], [address] Comprehensive Metabolic Prof ilon 09-24-2024 ALB Normal 3.4-4.8 [facility] Comment on above: Result Comment: Canc elled via OM: Order cancelled - Patient discharged Performed By: #### L 500.4050, L100.0100 ####[facility] [address] [place], [address] ALK PHOS Normal 35-104 [facility] Comment on above: Result Comment: Canc elled via OM: Order cancelled - Patient discharged Performed By: #### L 500.4050, L100.0100 ####[facility] [address] [place], [address] ALT Normal <=34 [facility] Comment on above: Result Comment: Canc elled via OM: Order cancelled - Patient discharged Performed By: #### L 500.4050, L100.0100 ####[facility] [address] [place], [address] AST Normal <=31 [facility] Comment on above: Result Comment: Canc elled via OM: Order cancelled - Patient discharged Performed By: #### L 500.4050, L100.0100 ####[facility] [address] [place], [address] BUN Normal 4-19 [facility] Comment on above: Result Comment: Canc elled via OM: Order cancelled - Patient discharged Performed By: #### L 500.4050, L100.0100 ####[facility] [address] [place], [address] BUN/CRE Normal 10-20 [facility] Comment on above: Result Comment: Canc elled via OM: Order cancelled - Patient discharged Performed By: #### L 500.4050, L100.0100 ####[facility] [address] [place], [address] Calcium Normal 7.6-11.0 [facility] Comment on above: Result Comment: Canc elled via OM: Order cancelled - Patient discharged Performed By: #### L 500.4050, L100.0100 ####[facility] [address] [place], [address] CL Normal 98-108 [facility] Comment on above: Result Comment: Canc elled via OM: Order cancelled - Patient discharged Performed By: #### L 500.4050, L100.0100 ####[facility] [address] [place], [address] CO2 Normal 21.0-32.0 [facility] Comment on above: Result Comment: Canc elled via OM: Order cancelled - Patient discharged Performed By: #### L 500.4050, L100.0100 ####[facility] [address] [place], [address] CREAT,SERUM Normal 0.70-1.20 [facility] Comment on above: Result Comment: Canc elled via OM: Order cancelled - Patient discharged Performed By: #### L 500.4050, L100.0100 ####[facility] [address] [place], [address] eGFR Normal >60 [facility] Comment on above: Result Comment: Canc elled via OM: Order cancelled - Patient discharged Performed By: #### L 500.4050, L100.0100 ####[facility] [address] [place], [address] GAP Normal 5-15 [facility] Comment on above: Result Comment: Canc elled via OM: Order cancelled - Patient discharged Performed By: #### L 500.4050, L100.0100 ####[facility] [address] [place], [address] GLU Normal 70-99 [facility] Comment on above: Result Comment: Canc elled via OM: Order cancelled - Patient discharged Performed By: #### L 500.4050, L100.0100 ####[facility] [address] [place], [address] Potassium Normal 3.3-5.1 [facility] Comment on above: Result Comment: Canc elled via OM: Order cancelled - Patient discharged Performed By: #### L 500.4050, L100.0100 ####[facility] [address] [place], [address] T BILI Normal 0.00-1.30 [facility] Comment on above: Result Comment: Canc elled via OM: Order cancelled - Patient discharged Performed By: #### L 500.4050, L100.0100 ####[facility] [address] [place], [address] T PROT Normal 5.9-8.4 [facility] Comment on above: Result Comment: Canc elled via OM: Order cancelled - Patient discharged Performed By: #### L 500.4050, L100.0100 ####[facility] [address] [place], [address] Comprehensive Metabolic Profil Normal 133-145 [facility] Comment on above: Result Comment: Canc elled via OM: Order cancelled - Patient discharged Performed By: #### L 500.4050, L100.0100 ####[facility] [address] [place], [address] CBC W/Diff, Automatedon 07-0 8-2024 Absolute Neut Normal 2.0-7.7 [facility] Comment on above: Result Comment: Canc elled via OM: Order cancelled - Patient discharged Performed By: #### L 100.0100 ####[facility] [address] [place], [address] HCT Normal 37-47 [facility] Comment on above: Result Comment: Canc elled via OM: Order cancelled - Patient discharged Performed By: #### L 100.0100 ####[facility] [address] [place], [address] HGB Normal 12.0-15.0 [facility] Comment on above: Result Comment: Canc elled via OM: Order cancelled - Patient discharged Performed By: #### L 100.0100 ####[facility] [address] [place], [address] MCH Normal 27.0-32.0 [facility] Comment on above: Result Comment: Canc elled via OM: Order cancelled - Patient discharged Performed By: #### L 100.0100 ####[facility] [address] [place], [address] MCHC Normal 32-36 [facility] Comment on above: Result Comment: Canc elled via OM: Order cancelled - Patient discharged Performed By: #### L 100.0100 ####[facility] [address] [place], [address] MCV Normal 81-99 [facility] Comment on above: Result Comment: Canc elled via OM: Order cancelled - Patient discharged Performed By: #### L 100.0100 ####[facility] [address] [place], [address] NEUT% Normal 47-70 [facility] Comment on above: Result Comment: Canc elled via OM: Order cancelled - Patient discharged Performed By: #### L 100.0100 ####[facility] [address] [place], [address] PLT Normal 150-450 [facility] Comment on above: Result Comment: Canc elled via OM: Order cancelled - Patient discharged Performed By: #### L 100.0100 ####[facility] [address] [place], [address] RBC Normal 4.2-5.4 [facility] Comment on above: Result Comment: Canc elled via OM: Order cancelled - Patient discharged Performed By: #### L 100.0100 ####[facility] [address] [place], [address] RDW CV Normal 11.6-14.6 [facility] Comment on above: Result Comment: Canc elled via OM: Order cancelled - Patient discharged Performed By: #### L 100.0100 ####[facility] [address] [place], [address] RDW SD Normal 35.1-43.9 [facility] Comment on above: Result Comment: Canc elled via OM: Order cancelled - Patient discharged Performed By: #### L 100.0100 ####[facility] [address] [place], [address] WBC Normal 4.4-11.0 [facility] Comment on above: Result Comment: Canc elled via OM: Order cancelled - Patient discharged Performed By: #### L 100.0100 ####[facility] [address] [place], [address] Comprehensive Metabolic Prof ilon 09-23-2024 ALB Normal 3.4-4.8 [facility] Comment on above: Result Comment: Canc elled via OM: Order cancelled - Patient discharged Performed By: #### L 500.4050 ####[facility] [address] [place], [address] ALK PHOS Normal 35-104 [facility] Comment on above: Result Comment: Canc elled via OM: Order cancelled - Patient discharged Performed By: #### L 500.4050 ####[facility] [address] [place], [address] ALT Normal <=34 [facility] Comment on above: Result Comment: Canc elled via OM: Order cancelled - Patient discharged Performed By: #### L 500.4050 ####[facility] [address] [place], [address] AST Normal <=31 [facility] Comment on above: Result Comment: Canc elled via OM: Order cancelled - Patient discharged Performed By: #### L 500.4050 ####[facility] [address] [place], [address] BUN Normal 4-19 [facility] Comment on above: Result Comment: Canc elled via OM: Order cancelled - Patient discharged Performed By: #### L 500.4050 ####[facility] [address] [place], [address] BUN/CRE Normal 10-20 [facility] Comment on above: Result Comment: Canc elled via OM: Order cancelled - Patient discharged Performed By: #### L 500.4050 ####[facility] [address] [place], [address] Calcium Normal 7.6-11.0 [facility] Comment on above: Result Comment: Canc elled via OM: Order cancelled - Patient discharged Performed By: #### L 500.4050 ####[facility] [address] [place], [address] CL Normal 98-108 [facility] Comment on above: Result Comment: Canc elled via OM: Order cancelled - Patient discharged Performed By: #### L 500.4050 ####[facility] [address] [place], [address] CO2 Normal 21.0-32.0 [facility] Comment on above: Result Comment: Canc elled via OM: Order cancelled - Patient discharged Performed By: #### L 500.4050 ####[facility] [address] [place], [address] CREAT,SERUM Normal 0.70-1.20 [facility] Comment on above: Result Comment: Canc elled via OM: Order cancelled - Patient discharged Performed By: #### L 500.4050 ####[facility] [address] [place], [address] eGFR Normal >60 [facility] Comment on above: Result Comment: Canc elled via OM: Order cancelled - Patient discharged Performed By: #### L 500.4050 ####[facility] [address] [place], [address] GAP Normal 5-15 [facility] Comment on above: Result Comment: Canc elled via OM: Order cancelled - Patient discharged Performed By: #### L 500.4050 ####[facility] [address] [place], [address] GLU Normal 70-99 [facility] Comment on above: Result Comment: Canc elled via OM: Order cancelled - Patient discharged Performed By: #### L 500.4050 ####[facility] [address] [place], [address] Potassium Normal 3.3-5.1 [facility] Comment on above: Result Comment: Canc elled via OM: Order cancelled - Patient discharged Performed By: #### L 500.4050 ####[facility] [address] [place], [address] T BILI Normal 0.00-1.30 [facility] Comment on above: Result Comment: Canc elled via OM: Order cancelled - Patient discharged Performed By: #### L 500.4050 ####[facility] [address] [place], [address] T PROT Normal 5.9-8.4 [facility] Comment on above: Result Comment: Canc elled via OM: Order cancelled - Patient discharged Performed By: #### L 500.4050 ####[facility] [address] [place], [address] Comprehensive Metabolic Profil Normal 133-145 [facility] Comment on above: Result Comment: Canc elled via OM: Order cancelled - Patient discharged Performed By: #### L 500.4050 ####[facility] [address] [place], [address] Absolute lymphocyte countOrd ered By: Ricardo Fontana on 09-22-2024 Lymphocytes Auto (Unsp spec) [#/Vol] 1.48 10*3/uL 0.83-4.51 [facility] Absolute neutrophil countOrd ered By: Ricardo Fontana on 09-22-2024 Neutrophils (Bld) [#/Vol] 3.4 10*3/uL 2.0-7.7 [facility] Anion gap in Serum or Plasma Ordered By: Ricardo Fontana on 09-22-2024 Anion gap [Moles/Vol] 8 mmol/L 5-15 [facility] Automated lymphocyte count a s percentage of total leukocytesOrdered By: Ricardo Fontana on 09-22-2024 Lymphocytes/100 WBC Auto (Unsp spec) 26.9 % 19-41 [facility] BUN/creatinine ratioOrdered By: Ricardo Banueloso on 09-22-2024 Urea nitrogen/Creatinine [Mass ratio] 9.7 mg/mg Low 10-20 [facility] Basophil percentageOrdered B y: Ricardo Fontana on 09-22-2024 Basophils/100 WBC (Bld) 0.5 % 0-1 [facility] Bilirubin, totalOrdered By: Ricardo Banueloso on 09-22-2024 Bilirubin [Mass/Vol] 0.46 mg/dL 0.00-1.30 [facility] Brain/Head without Contrasto n 09-22-2024 Brain/Head without Contrast Normal [facility] CBC W/Diff, Automatedon Absolute Lymph 1.48 X10 3/uL Normal 0.83-4.51 [facility] Comment on above: Performed By: #### L 500.4050, L100.0100, L500.4100, L501.2300 ####[facility] [address] [place], [address] Absolute Neut 3.4 X10 3/uL Normal 2.0-7.7 [facility] Comment on above: Performed By: #### L 500.4050, L100.0100, L500.4100, L501.2300 ####[facility] [address] [place], [address] Basophils/100 WBC (Bld) 0.5 % Normal 0-1 [facility] Comment on above: Performed By: #### L 500.4050, L100.0100, L500.4100, L501.2300 ####[facility] [address] [place], [address] Eosinophils/100 WBC (Bld) 1.8 % Normal 0-5 [facility] Comment on above: Performed By: #### L 500.4050, L100.0100, L500.4100, L501.2300 ####[facility] [address] [place], [address] Erythrocyte distribution width (RBC) [Ratio] 13.8 % Normal 11.6-14.6 [facility] Comment on above: Performed By: #### L 500.4050, L100.0100, L500.4100, L501.2300 ####[facility] [address] [place], [address] Hematocrit (Bld) [Volume fraction] 33.1 % Low 37-47 [facility] Comment on above: Performed By: #### L 500.4050, L100.0100, L500.4100, L501.2300 ####[facility] [address] [place], [address] Hemoglobin (Bld) [Mass/Vol] 10.8 g/dL Low 12.0-15.0 [facility] Comment on above: Performed By: #### L 500.4050, L100.0100, L500.4100, L501.2300 ####[facility] [address] [place], [address] IG% 0.400 Normal 0.0-0.9 [facility] Comment on above: Result Comment: IG% - Immature Granulocytes (promyelocytes, myelocytes andmetamyelocytes) > 1% indicates that a LEFT SHIFT is Present. Performed By: #### L 500.4050, L100.0100, L500.4100, L501.2300 ####[facility] [address] [place], [address] Lymphocytes/100 WBC (Bld) 26.9 % Normal 19-41 [facility] Comment on above: Performed By: #### L 500.4050, L100.0100, L500.4100, L501.2300 ####[facility] [address] [place], [address] MCH (RBC) [Entitic mass] 31.3 pg Normal 27.0-32.0 [facility] Comment on above: Performed By: #### L 500.4050, L100.0100, L500.4100, L501.2300 ####[facility] [address] [place], [address] MCHC (RBC) [Mass/Vol] 32.6 g/dL Normal 32-36 [facility] Comment on above: Performed By: #### L 500.4050, L100.0100, L500.4100, L501.2300 ####[facility] [address] [place], [address] MCV (RBC) [Entitic vol] 95.9 fL Normal 81-99 [facility] Comment on above: Performed By: #### L 500.4050, L100.0100, L500.4100, L501.2300 ####[facility] [address] [place], [address] Monocytes/100 WBC (Bld) 8.5 % Normal 0-10 [facility] Comment on above: Performed By: #### L 500.4050, L100.0100, L500.4100, L501.2300 ####[facility] [address] [place], [address] Neutrophils/100 WBC (Bld) 61.9 % Normal 47-70 [facility] Comment on above: Performed By: #### L 500.4050, L100.0100, L500.4100, L501.2300 ####[facility] [address] [place], [address] Nucleated RBC (Bld) [#/Vol] 0 10*3/uL Normal 0-5 [facility] Comment on above: Performed By: #### L 500.4050, L100.0100, L500.4100, L501.2300 ####[facility] [address] [place], [address] Platelet mean volume (Bld) [Entitic vol] 9.2 fL Normal 6.2-12.0 [facility] Comment on above: Performed By: #### L 500.4050, L100.0100, L500.4100, L501.2300 ####[facility] [address] [place], [address] Platelets (Bld) [#/Vol] 319 10*3/uL Normal 150-450 [facility] Comment on above: Performed By: #### L 500.4050, L100.0100, L500.4100, L501.2300 ####[facility] [address] [place], [address] RBC (Bld) [#/Vol] 3.45 10*6/uL Low 4.2-5.4 [facility] Comment on above: Performed By: #### L 500.4050, L100.0100, L500.4100, L501.2300 ####[facility] [address] [place], [address] RDW SD 48.6 fl High 35.1-43.9 [facility] Comment on above: Performed By: #### L 500.4050, L100.0100, L500.4100, L501.2300 ####[facility] [address] [place], [address] WBC (Bld) [#/Vol] 5.5 10*3/uL Normal 4.4-11.0 [facility] Comment on above: Performed By: #### L 500.4050, L100.0100, L500.4100, L501.2300 ####[facility] [address] [place], [address] CO2 (BldV) [Moles/Vol]Melissa rivero By: Ricardo Fontana on 09-22-2024 CO2 [Moles/Vol] 30 mmol/L 23-33 [facility] Calculated very low density lipoprotein (VLDL) cholesterol measurementOrdered By: Ricardo Fontana on 09-22-2024 Calculated very low density lipoprotein (VLDL) cholesterol measurement 16 mg/dL 5-40 [facility] Carbon dioxide, total [Moles /volume] in Central venous bloodOrdered By: Ricardo Fontana on 09-22-2024 CO2 [Moles/Vol] 23.5 mmol/L 21.0-32.0 [facility] Chloride assayOrdered By: [place] on 09-22-2024 Chloride [Moles/Vol] 111 mmol/L High 98-108 [facility] Comprehensive Metabolic Prof ilon 09-22-2024 Albumin [Mass/Vol] 2.9 g/dL Low 3.4-4.8 [facility] Comment on above: Performed By: #### L 500.4050, L100.0100, L500.4100, L501.2300 ####[facility] [address] [place], [address] Albumin/Globulin [Mass ratio] 1.1 {ratio} Normal 0.9-2.4 [facility] Comment on above: Performed By: #### L 500.4050, L100.0100, L500.4100, L501.2300 ####[facility] [address] [place], [address] ALK PHOS 98 U/L Normal 35-104 [facility] Comment on above: Performed By: #### L 500.4050, L100.0100, L500.4100, L501.2300 ####[facility] [address] [place], [address] ALT [Catalytic activity/Vol] 11 U/L Normal <=34 [facility] Comment on above: Performed By: #### L 500.4050, L100.0100, L500.4100, L501.2300 ####[facility] [address] [place], [address] AST [Catalytic activity/Vol] 26 U/L Normal <=31 [facility] Comment on above: Performed By: #### L 500.4050, L100.0100, L500.4100, L501.2300 ####[facility] [address] [place], [address] Bilirubin [Mass/Vol] 0.46 mg/dL Normal 0.00-1.30 [facility] Comment on above: Performed By: #### L 500.4050, L100.0100, L500.4100, L501.2300 ####[facility] [address] [place], [address] BUN/CRE 9.7 RATIO Low 10-20 [facility] Comment on above: Performed By: #### L 500.4050, L100.0100, L500.4100, L501.2300 ####[facility] [address] [place], [address] Calcium [Mass/Vol] 8.5 mg/dL Normal 7.6-11.0 [facility] Comment on above: Performed By: #### L 500.4050, L100.0100, L500.4100, L501.2300 ####[facility] [address] [place], [address] Chloride [Moles/Vol] 111 mmol/L High 98-108 [facility] Comment on above: Performed By: #### L 500.4050, L100.0100, L500.4100, L501.2300 ####[facility] [address] [place], [address] CO2 [Moles/Vol] 23.5 mmol/L Normal 21.0-32.0 [facility] Comment on above: Performed By: #### L 500.4050, L100.0100, L500.4100, L501.2300 ####[facility] [address] [place], [address] Creatinine [Mass/Vol] 0.74 mg/dL Normal 0.70-1.20 [facility] Comment on above: Result Comment: QC O K Performed By: #### L 500.4050, L100.0100, L500.4100, L501.2300 ####[facility] [address] [place], [address] ECRCL 46.56 ml/min Low 50-250 [facility] Comment on above: Performed By: #### L 500.4050, L100.0100, L500.4100, L501.2300 ####[facility] [address] [place], [address] GAP 8 Normal 5-15 [facility] Comment on above: Performed By: #### L 500.4050, L100.0100, L500.4100, L501.2300 ####[facility] [address] [place], [address] GFR/1.73 sq M.predicted among non-blacks MDRD (S/P/Bld) [Vol rate/Area] 86 mL/min/{1.73_m2} Normal >60 [facility] Comment on above: Result Comment: mL/m in/1.73m2 CKD-EPI Creatinine Equation (2020) Performed By: #### L 500.4050, L100.0100, L500.4100, L501.2300 ####[facility] [address] [place], [address] Globulin (S) [Mass/Vol] 2.7 g/dL Normal 2.2-4.2 [facility] Comment on above: Performed By: #### L 500.4050, L100.0100, L500.4100, L501.2300 ####[facility] [address] [place], [address] Glucose [Mass/Vol] 76 mg/dL Normal 70-99 [facility] Comment on above: Performed By: #### L 500.4050, L100.0100, L500.4100, L501.2300 ####[facility] [address] [place], [address] Potassium [Moles/Vol] 3.7 mmol/L Normal 3.3-5.1 [facility] Comment on above: Performed By: #### L 500.4050, L100.0100, L500.4100, L501.2300 ####[facility] [address] [place], [address] Sodium [Moles/Vol] 143 mmol/L Normal 133-145 [facility] Comment on above: Performed By: #### L 500.4050, L100.0100, L500.4100, L501.2300 ####[facility] [address] [place], [address] T PROT 5.6 g/dL Low 5.9-8.4 [facility] Comment on above: Performed By: #### L 500.4050, L100.0100, L500.4100, L501.2300 ####[facility] [address] [place], [address] Urea nitrogen [Mass/Vol] 7 mg/dL Normal 4-19 [facility] Comment on above: Performed By: #### L 500.4050, L100.0100, L500.4100, L501.2300 ####[facility] [address] [place], [address] D-Dimer Quantitative (DVT/PE )on 09-22-2024 D-DIMER QUANT 0.32 FEU/ug/m Normal 0.27-0.49 [facility] Comment on above: Result Comment: NORM AL D-Dimer level (<0.50) indicates no DVT or PE. Performed By: #### L 300.8000 ####[facility] [address] [place], [address] Discharge Instructionon 07-0 Discharge Instruction Normal [facility] Eosinophil percentageOrdered By: Ricardo Fontana on 09-22-2024 Eosinophils/100 WBC (Bld) 1.8 % 0-5 [facility] Erythrocyte distribution wid th ratioOrdered By: Ricardo Fontana on 09-22-2024 Erythrocyte distribution width (RBC) [Ratio] 13.8 % 11.6-14.6 [facility] Erythrocyte distribution wid th standard deviationOrdered By: Ricardo Fontana on 09-22-2024 Erythrocyte distribution width (RBC) [Ratio] 48.6 fl High 35.1-43.9 [facility] Glomerular filtration rate ( GFR) estimation/1.73 sq m using serum, plasma, or whole bOrdered By: Ricardo Fontana on 09-22-2024 GFR/1.73 sq M.predicted among non-blacks MDRD (S/P/Bld) [Vol rate/Area] 86 mL/min/{1.73_m2} >60 [facility] Comment on above: mL/min/1.73m2 CKD-EP I Creatinine Equation (2020) Hematocrit Auto (Bld) [Volum e fraction]Ordered By: Ricardo Fontana on 09-22-2024 Hematocrit (Bld) [Volume fraction] 33.1 % Low 37-47 [facility] Hemoglobin measurementOrdere d By: Ricardo Fontana on 09-22-2024 Hemoglobin (Bld) [Mass/Vol] 10.8 g/dL Low 12.0-15.0 [facility] Immature granulocytes/100 WB C Auto (Bld)Ordered By: Ricardo Fontana on 09-22-2024 Immature granulocytes/100 WBC (Bld) 0.400 % 0.0-0.9 [facility] Comment on above: IG% - Immature Granu locytes (promyelocytes, myelocytes and metamyelocytes) > 1% indicates that a LEFT SHIFT is Present. LDL calc ser/plasOrdered By: Ricardo Fontana on 09-22-2024 Cholesterol in LDL [Mass/Vol] 132 mg/dL [facility] Comment on above: Hiohgmajil=798-029 m g/dL & Higher Cvot=987 mg/dL or greater Laboratory - Chemistry and C hemistry - challengeOrdered By: Ricardo Fontana on 09-22-2024 AST [Catalytic activity/Vol] 26 U/L <32 [facility] Lipid Profileon 09-22-2024 CHOL:HDL 3.16 Normal [facility] Comment on above: Performed By: #### L 500.4050, L100.0100, L500.4100, L501.2300 ####[facility] [address] [place], [address] Cholesterol [Mass/Vol] 217 mg/dL High <=200 [facility] Comment on above: Result Comment: Chol esterol level, Desirable <200 mg/dLBorderline high cholesterol 200-239 mg/dLHigh cholesterol >=240 mg/dLRecommendations of the NCEP Adult Treatment Panel for thefollowing risk-cutoff thresholds for the [place] [facility]. Performed By: #### L 500.4050, L100.0100, L500.4100, L501.2300 ####[facility] [address] [place], [address] Cholesterol in HDL [Mass/Vol] 69 mg/dL Normal [facility] Comment on above: Result Comment: Breanna onal Cholesterol Education Program (NCEP) guidelines:<40 mg/dL: Low HDL-cholesterol (major risk factor for CHD)>= 60 mg/dL: High HDL-cholesterol (negative risk factor forCHD)HDL-cholesterol is affected by a number of factors, e.g.smoking, exercise, hormones, sex and age. Performed By: #### L 500.4050, L100.0100, L500.4100, L501.2300 ####[facility] [address] [place], [address] Cholesterol in LDL [Mass/Vol] 132 mg/dL Normal [facility] Comment on above: Result Comment: Bord aepxtd=432-219 mg/dL Higher Tgwh=966 mg/dL or greater Performed By: #### L 500.4050, L100.0100, L500.4100, L501.2300 ####[facility] [address] [place], [place], [address] Cholesterol in VLDL [Mass/Vol] 16 mg/dL Normal 5-40 [facility] Comment on above: Performed By: #### L 500.4050, L100.0100, L500.4100, L501.2300 ####[facility] [address] [place], [address] Triglyceride [Mass/Vol] 81 mg/dL Normal [facility] Comment on above: Result Comment: The drugs N-Acetylcysteine and Metamizole may falselydepress this assay.Normal range: <150 mg/dLBorderline High: 150-199 mg/dLHigh: 200-499 mg/dLVery High: >500 mg/dL Performed By: #### L 500.4050, L100.0100, L500.4100, L501.2300 ####[facility] [address] [place], [address] MCV (mean corpuscular volume ) determinationOrdered By: Ricardo Fontana on 09-22-2024 MCV (RBC) [Entitic vol] 95.9 fL 81-99 [facility] Mean corpuscular hemoglobin (MCH) determinationOrdered By: Ricardo Fontana on 09-22-2024 MCH (RBC) [Entitic mass] 31.3 pg 27.0-32.0 [facility] Mean corpuscular hemoglobin concentration (MCHC) determinationOrdered By: Ricardo Fontana on 09-22-2024 MCHC (RBC) [Mass/Vol] 32.6 g/dL 32-36 [facility] Mean platelet volume determi nationOrdered By: Ricardo Fontana on 09-22-2024 Platelet mean volume (Bld) [Entitic vol] 9.2 fL 6.2-12.0 [facility] Monocyte percentageOrdered B y: Ricardo Fontana on 09-22-2024 Monocytes/100 WBC (Bld) 8.5 % 0-10 [facility] Neutrophil percentageOrdered By: Ricardo Fontana on 09-22-2024 Neutrophils/100 WBC (Bld) 61.9 % 47-70 [facility] No Panel InformationOrdered By: Ricardo Fontana on 09-22-2024 Blood Gas Sample Site VENOUS [facility] Blood Gas Specimen Type PEYTON [facility] Oxygen Delivery Device Room Air [facility] PEYTON [facility] VENOUS [facility] Room Air [facility] 26 U/L <32 [facility] Nucleated red blood cell per centageOrdered By: Ricardo Fontana on 09-22-2024 Nucleated RBC/100 WBC (Bld) [Ratio] 0 % 0-5 [facility] Phosphoruson 09-22-2024 Phosphate [Mass/Vol] 3.1 mg/dL Normal 2.7-4.5 [facility] Comment on above: Performed By: #### L 500.4050, L100.0100, L500.4100, L501.2300 ####[facility] [address] [place], [address] Platelet countOrdered By: [place] Fontana on 09-22-2024 Platelets (Bld) [#/Vol] 319 10*3/uL 150-450 [facility] Potassium measurement (mass/ volume)Ordered By: Ricardo Fontana on 09-22-2024 Potassium (Unsp spec) [Mass/Vol] 3.7 mmol/L 3.3-5.1 [facility] RBC Auto (Bld) [#/Vol]Ordere d By: Ricardo Fontana on 09-22-2024 RBC (Bld) [#/Vol] 3.45 10*6/uL Low 4.2-5.4 [facility] Screening total cholesterol/ high density lipoprotein (HDL) cholesterol ratioOrdered By: Ricardo Fontana on 09-22-2024 Cholesterol.total/Tamera sterol in HDL [Mass ratio] 3.16 {ratio} [facility] Serum creatinine measurement (mass/volume)Ordered By: Ricardo Fontana on 09-22-2024 Creatinine [Mass/Vol] 0.74 mg/dL 0.70-1.20 [facility] Comment on above: QC OK Serum globulin measurementOr dered By: Ricardo Fontana on 09-22-2024 Globulin (S) [Mass/Vol] 2.7 g/dL 2.2-4.2 [facility] Serum glucose measurement (m ass/volume)Ordered By: Ricardo Fontana on 09-22-2024 Glucose [Mass/Vol] 76 mg/dL 70-99 [facility] Serum or plasma alanine soliz otransferase (ALT) measurementOrdered By: Ricardo Fontana on 09-22-2024 ALT [Catalytic activity/Vol] 11 U/L <35 [facility] Serum or plasma albumin rosangela urement (mass/volume)Ordered By: Ricardo Fontana on 09-22-2024 Albumin [Mass/Vol] 2.9 g/dL Low 3.4-4.8 [facility] Serum or plasma albumin/glob ulin mass ratioOrdered By: Ricardo Fontana on 09-22-2024 Albumin/Globulin [Mass ratio] 1.1 {ratio} 0.9-2.4 [facility] Serum or plasma alkaline faustino sphatase measurementOrdered By: Ricardo Fontana on 09-22-2024 ALP [Catalytic activity/Vol] 98 U/L 35-104 [facility] Serum or plasma calcium rosangela urement (mass/volume)Ordered By: Ricardo Fontana on 09-22-2024 Calcium [Mass/Vol] 8.5 mg/dL 7.6-11.0 [facility] Serum or plasma cholesterol in HDL measurement (mass/volume)Ordered By: Ricardo Fontana on 09-22-2024 Cholesterol in HDL [Mass/Vol] 69 mg/dL >40 [facility] Comment on above: National Cholesterol Education Program (NCEP) guidelines:<40 mg/dL: Low HDL-cholesterol (major risk factor for CHD)>= 60 mg/dL: High HDL-cholesterol (negative risk factor for CHD)HDL-cholesterol is affected by a number of factors, e.g. smoking, exercise, hormones, sex and age. Serum or plasma cholesterol measurement (mass/volume)Ordered By: Ricardo Fontana on 09-22-2024 Cholesterol [Mass/Vol] 217 mg/dL High <201 [facility] Comment on above: Cholesterol level, D esirable <200 mg/dLBorderline high cholesterol 200-239 mg/dLHigh cholesterol >=240 mg/dLRecommendations of the NCEP Adult Treatment Panel for the following risk-cutoff thresholds for the [place] population. Serum or plasma urea nitroge n measurement (mass/volume)Ordered By: Ricardo Fontana on 09-22-2024 Urea nitrogen [Mass/Vol] 7 mg/dL 4-19 [facility] Sodium levelOrdered By: Ulices Fontana on 09-22-2024 Sodium [Moles/Vol] 143 mmol/L 133-145 [facility] Total proteinOrdered By: Manohar Fontana on 09-22-2024 Protein [Mass/Vol] 5.6 g/dL Low 5.9-8.4 [facility] Triglycerides measurementOrd ered By: Ricardo Fontana on 09-22-2024 Triglyceride [Mass/Vol] 81 mg/dL <199 [facility] Comment on above: The drugs N-Acetylcy steine and Metamizole may falsely depress this assay. Normal range: <150 mg/dLBorderline High: 150-199 mg/dLHigh: 200-499 mg/dLVery High: >500 mg/dL Venous Blood Gason 5 Blood Gas Type PEYTON Normal [facility] Comment on above: Performed By: #### L 9000.0810 ####[facility] [address] [place], [address] CO2 [Moles/Vol] 30 mmol/L Normal 23-33 [facility] Comment on above: Performed By: #### L 9000.0810 ####[facility] [address] [place], [address] HCO3 (Bld) [Moles/Vol] 29 mmol/L High 22-26 [facility] Comment on above: Performed By: #### L 900.0810 ####[facility] [address] [place], [address] O2 Delivery Dev Room Air Normal [facility] Comment on above: Performed By: #### L 9000.0810 ####[facility] [address] [place], [address] SITE VENOUS Normal [facility] Comment on above: Performed By: #### L 9000.0810 ####[facility] [address] [place], [address] VBG BE 4 mmol/L High -1.0-3.5 [facility] Comment on above: Performed By: #### L 9000.0810 ####[facility] [address] [place], [address] VBG pCO2 48.3 mmHg Normal 41-51 [facility] Comment on above: Performed By: #### L 9000.0810 ####[facility] [address] [place], [address] VBG pH 7.39 Normal 7.32-7.42 [facility] Comment on above: Performed By: #### L 9000.0810 ####[facility] [address] [place], [address] VBG PO2 39 mmHg Normal 25-40 [facility] Comment on above: Performed By: #### L 9000.0810 ####[facility] [address] [place], [address] VBG SO2 72 High 50-70 [facility] Comment on above: Performed By: #### L 9000.0810 ####[facility] [address] [place], [address] Venous blood base excess eliezer surementOrdered By: Ricardo Fontana on 09-22-2024 Base excess Calc (BldV) [Moles/Vol] 4 mmol/L High -1.0-3.5 [facility] Venous blood bicarbonate eliezer surementOrdered By: Ricardo Fontana on 09-22-2024 HCO3 (Bld) [Moles/Vol] 29 mmol/L High 22-26 [facility] Venous blood oxygen saturati on measurementOrdered By: Ricardo Fontana on 09-22-2024 Oxygen saturation in Blood 72 % High 50-70 [facility] Venous blood pH measurementO rdered By: Ricardo Fontana on 09-22-2024 pH (BldV) 7.39 [pH] 7.32-7.42 [facility] Venous blood partial pressur e of carbon dioxide measurementOrdered By: Ricardo Fontana on 09-22-2024 CO2 (BldV) [Partial pressure] 48.3 mm[Hg] 41-51 [facility] Venous blood partial pressur e of oxygen measurementOrdered By: Ricardo Fontana on 09-22-2024 Oxygen (BldV) [Partial pressure] 39 mm[Hg] 25-40 [facility] White blood cell (WBC) count Ordered By: Ricardo Fontana on 09-22-2024 WBC (Bld) [#/Vol] 5.5 10*3/uL 4.4-11.0 [facility] 12 Lead EKGon 09-21-2024 12 Lead EKG Normal [facility] Absolute lymphocyte countOrd ered By: Guilherme Collins on 09-21-2024 Lymphocytes Auto (Unsp spec) [#/Vol] 0.90 10*3/uL 0.83-4.51 [facility] Absolute neutrophil countOrd ered By: Guilherme Collins on 09-21-2024 Neutrophils (Bld) [#/Vol] 6.4 10*3/uL 2.0-7.7 [facility] Alcohol, Blood (Medical)-Ser umon 09-21-2024 SERUM ETOH < 10.1 Normal <=10.0 [facility] Comment on above: Result Comment: This test is for medical purposes only. The legaldefinition of intoxication varies according to local law. Performed By: #### L 501.9100, L505.5000 ####[facility] [address] [place], [place], [address] Amphetamine detection with 1 000 ng/mL as cutoffOrdered By: Ricardo Fontana on 09-21-2024 Amphetamines Screen method >1000 ng/mL Ql (U) Negative < 200 ng/mL [facility] Anion gap in Serum or Plasma Ordered By: Guilherme Collins on 09-21-2024 Anion gap [Moles/Vol] 10 mmol/L 5-15 [facility] Automated lymphocyte count a s percentage of total leukocytesOrdered By: Guilherme Collins on 09-21-2024 Lymphocytes/100 WBC Auto (Unsp spec) 11.2 % Low 19-41 [facility] BUN/creatinine ratioOrdered By: Guilherme Collins on 09-21-2024 Urea nitrogen/Creatinine [Mass ratio] 8.7 mg/mg Low 10-20 [facility] Basophil percentageOrdered B y: Guilherme Collins on 09-21-2024 Basophils/100 WBC (Bld) 0.4 % 0-1 [facility] Bilirubin Test strip Ql (U)O rdered By: Guilherme Collins on 09-21-2024 Bilirubin Ql (U) Negative Negative [facility] Bilirubin, totalOrdered By: Guilherme Collins on 09-21-2024 Bilirubin [Mass/Vol] 0.47 mg/dL 0.00-1.30 [facility] Blood cultureOrdered By: Aayush Collins on 09-21-2024 Bacteria identified Cx Nom (Bld) No growth in 5 days. [facility] Bacteria identified Cx Nom (Bld) No growth in 5 days. [facility] Brain/Head without Contrasto n 09-21-2024 Brain/Head without Contrast Normal [facility] CBC W/Diff, Automatedon 07- Absolute Lymph 0.90 X10 3/uL Normal 0.83-4.51 [facility] Comment on above: Performed By: #### L 100.0100, L503.6005, L500.4050 ####[facility] [address] [place], [address] Absolute Neut 6.4 X10 3/uL Normal 2.0-7.7 [facility] Comment on above: Performed By: #### L 100.0100, L503.6005, L500.4050 ####[facility] [address] [place], [address] Basophils/100 WBC (Bld) 0.4 % Normal 0-1 [facility] Comment on above: Performed By: #### L 100.0100, L503.6005, L500.4050 ####[facility] [address] [place], [address] Eosinophils/100 WBC (Bld) 0.2 % Normal 0-5 [facility] Comment on above: Performed By: #### L 100.0100, L503.6005, L500.4050 ####[facility] [address] [place], [address] Erythrocyte distribution width (RBC) [Ratio] 13.8 % Normal 11.6-14.6 [facility] Comment on above: Performed By: #### L 100.0100, L503.6005, L500.4050 ####[facility] [address] [place], [address] Hematocrit (Bld) [Volume fraction] 34.9 % Low 37-47 [facility] Comment on above: Performed By: #### L 100.0100, L503.6005, L500.4050 ####[facility] [address] [place], [address] Hemoglobin (Bld) [Mass/Vol] 11.4 g/dL Low 12.0-15.0 [facility] Comment on above: Performed By: #### L 100.0100, L503.6005, L500.4050 ####[facility] [address] [place], [address] IG% 0.200 Normal 0.0-0.9 [facility] Comment on above: Result Comment: IG% - Immature Granulocytes (promyelocytes, myelocytes andmetamyelocytes) > 1% indicates that a LEFT SHIFT is Present. Performed By: #### L 100.0100, L503.6005, L500.4050 ####[facility] [address] [place], [address] Lymphocytes/100 WBC (Bld) 11.2 % Low 19-41 [facility] Comment on above: Performed By: #### L 100.0100, L503.6005, L500.4050 ####[facility] [address] [place], [address] MCH (RBC) [Entitic mass] 31.3 pg Normal 27.0-32.0 [facility] Comment on above: Performed By: #### L 100.0100, L503.6005, L500.4050 ####[facility] [address] [place], [address] MCHC (RBC) [Mass/Vol] 32.7 g/dL Normal 32-36 [facility] Comment on above: Performed By: #### L 100.0100, L503.6005, L500.4050 ####[facility] [address] [place], [address] MCV (RBC) [Entitic vol] 95.9 fL Normal 81-99 [facility] Comment on above: Performed By: #### L 100.0100, L503.6005, L500.4050 ####[facility] [address] [place], [address] Monocytes/100 WBC (Bld) 8.7 % Normal 0-10 [facility] Comment on above: Performed By: #### L 100.0100, L503.6005, L500.4050 ####[facility] [address] [place], [address] Neutrophils/100 WBC (Bld) 79.3 % High 47-70 [facility] Comment on above: Performed By: #### L 100.0100, L503.6005, L500.4050 ####[facility] [address] [place], [address] Nucleated RBC (Bld) [#/Vol] 0 10*3/uL Normal 0-5 [facility] Comment on above: Performed By: #### L 100.0100, L503.6005, L500.4050 ####[facility] [address] [place], [address] Platelet mean volume (Bld) [Entitic vol] 10.0 fL Normal 6.2-12.0 [facility] Comment on above: Performed By: #### L 100.0100, L503.6005, L500.4050 ####[facility] [address] [place], [address] Platelets (Bld) [#/Vol] 339 10*3/uL Normal 150-450 [facility] Comment on above: Performed By: #### L 100.0100, L503.6005, L500.4050 ####[facility] [address] [place], [address] RBC (Bld) [#/Vol] 3.64 10*6/uL Low 4.2-5.4 [facility] Comment on above: Performed By: #### L 100.0100, L503.6005, L500.4050 ####[facility] [address] [place], [address] RDW SD 48.4 fl High 35.1-43.9 [facility] Comment on above: Performed By: #### L 100.0100, L503.6005, L500.4050 ####[facility] [address] [place], [address] WBC (Bld) [#/Vol] 8.0 10*3/uL Normal 4.4-11.0 [facility] Comment on above: Performed By: #### L 100.0100, L503.6005, L500.4050 ####[facility] [address] [place], [address] Carbon dioxide, total [Moles /volume] in Central venous bloodOrdered By: Guilherme Collins on 09-21-2024 CO2 [Moles/Vol] 24.7 mmol/L 21.0-32.0 [facility] Chest PA and Lateralon 09-21 Chest PA and Lateral Normal [facility] Chest without Contraston Chest without Contrast Normal [facility] Chloride assayOrdered By: Mansoor Collins on 09-21-2024 Chloride [Moles/Vol] 105 mmol/L 98-108 [facility] Comprehensive Metabolic Prof ilon 09-21-2024 Albumin [Mass/Vol] 3.3 g/dL Low 3.4-4.8 [facility] Comment on above: Performed By: #### L 100.0100, L503.6005, L500.4050 ####[facility] [address] [place], [address] Albumin/Globulin [Mass ratio] 1.1 {ratio} Normal 0.9-2.4 [facility] Comment on above: Performed By: #### L 100.0100, L503.6005, L500.4050 ####[facility] [address] [place], [address] ALK PHOS 113 U/L High 35-104 [facility] Comment on above: Performed By: #### L 100.0100, L503.6005, L500.4050 ####[facility] [address] [place], [address] ALT [Catalytic activity/Vol] 11 U/L Normal <=34 [facility] Comment on above: Performed By: #### L 100.0100, L503.6005, L500.4050 ####[facility] [address] [place], [address] AST [Catalytic activity/Vol] 30 U/L Normal <=31 [facility] Comment on above: Performed By: #### L 100.0100, L503.6005, L500.4050 ####[facility] [address] [place], [address] Bilirubin [Mass/Vol] 0.47 mg/dL Normal 0.00-1.30 [facility] Comment on above: Performed By: #### L 100.0100, L503.6005, L500.4050 ####[facility] [address] [place], [address] BUN/CRE 8.7 RATIO Low 10-20 [facility] Comment on above: Performed By: #### L 100.0100, L503.6005, L500.4050 ####[facility] [address] [place], [address] Calcium [Mass/Vol] 9.0 mg/dL Normal 7.6-11.0 [facility] Comment on above: Performed By: #### L 100.0100, L503.6005, L500.4050 ####[facility] [address] [place], [address] Chloride [Moles/Vol] 105 mmol/L Normal 98-108 [facility] Comment on above: Performed By: #### L 100.0100, L503.6005, L500.4050 ####[facility] [address] [place], [address] CO2 [Moles/Vol] 24.7 mmol/L Normal 21.0-32.0 [facility] Comment on above: Performed By: #### L 100.0100, L503.6005, L500.4050 ####[facility] [address] [place], [address] Creatinine [Mass/Vol] 0.97 mg/dL Normal 0.70-1.20 [facility] Comment on above: Performed By: #### L 100.0100, L503.6005, L500.4050 ####[facility] [address] [place], [address] ECRCL 40.24 ml/min Low 50-250 [facility] Comment on above: Performed By: #### L 100.0100, L503.6005, L500.4050 ####[facility] [address] [place], [address] GAP 10 Normal 5-15 [facility] Comment on above: Performed By: #### L 100.0100, L503.6005, L500.4050 ####[facility] [address] [place], [address] GFR/1.73 sq M.predicted among non-blacks MDRD (S/P/Bld) [Vol rate/Area] 61 mL/min/{1.73_m2} Normal >60 [facility] Comment on above: Result Comment: mL/m in/1.73m2 CKD-EPI Creatinine Equation (2020) Performed By: #### L 100.0100, L503.6005, L500.4050 ####[facility] [address] [place], [address] Globulin (S) [Mass/Vol] 3.1 g/dL Normal 2.2-4.2 [facility] Comment on above: Performed By: #### L 100.0100, L503.6005, L500.4050 ####[facility] [address] [place], [address] Glucose [Mass/Vol] 118 mg/dL High 70-99 [facility] Comment on above: Performed By: #### L 100.0100, L503.6005, L500.4050 ####[facility] [address] [place], [address] Potassium [Moles/Vol] 3.8 mmol/L Normal 3.3-5.1 [facility] Comment on above: Result Comment: Hemo lysis present, Results??could be affected.?? Performed By: #### L 100.0100, L503.6005, L500.4050 ####[facility] [address] [place], [address] Sodium [Moles/Vol] 140 mmol/L Normal 133-145 [facility] Comment on above: Performed By: #### L 100.0100, L503.6005, L500.4050 ####[facility] [address] [place], [address] T PROT 6.4 g/dL Normal 5.9-8.4 [facility] Comment on above: Performed By: #### L 100.0100, L503.6005, L500.4050 ####[facility] [address] [place], [address] Urea nitrogen [Mass/Vol] 8 mg/dL Normal 4-19 [facility] Comment on above: Performed By: #### L 100.0100, L503.6005, L500.4050 ####[facility] [address] [place], [address] Emergency Department Summary on 09-21-2024 Emergency Department Summary Normal [facility] Eosinophil percentageOrdered By: Guilherme Collins on 09-21-2024 Eosinophils/100 WBC (Bld) 0.2 % 0-5 [facility] Erythrocyte distribution wid th ratioOrdered By: Guilherme Collins on 09-21-2024 Erythrocyte distribution width (RBC) [Ratio] 13.8 % 11.6-14.6 [facility] Erythrocyte distribution wid th standard deviationOrdered By: Guilherme Collins on 09-21-2024 Erythrocyte distribution width (RBC) [Ratio] 48.4 fl High 35.1-43.9 [facility] Folate [Mass/volume] in Seru m or PlasmaOrdered By: Ricardo Fontana on 09-21-2024 Folate [Mass/Vol] 6.21 ng/mL 4.60-34.80 [facility] Folates,Serum (Folic Acid)on 09-21-2024 FOLATES,SERUM 6.21 ng/mL Normal 4.60-34.80 [facility] Comment on above: Performed By: #### L 501.9985, L501.9520, L501.5200, L506.0200 ####[facility] [address] [place], [place], [id number] Glomerular filtration rate ( GFR) estimation/1.73 sq m using serum, plasma, or whole bOrdered By: Guilherme Collins on 09-21-2024 GFR/1.73 sq M.predicted among non-blacks MDRD (S/P/Bld) [Vol rate/Area] 61 mL/min/{1.73_m2} >60 [facility] Comment on above: mL/min/1.73m2 CKD-EP I Creatinine Equation (2020) H AND P Exam - Hospitaliston 09-21-2024 H&P Exam - Hospitalist Normal [facility] Hematocrit Auto (Bld) [Volum e fraction]Ordered By: Guilherme Collins on 09-21-2024 Hematocrit (Bld) [Volume fraction] 34.9 % Low 37-47 [facility] Hemoglobin A1con 09-21-2024 HbA1c (Bld) [Mass fraction] 5.5 % Normal <=5.6 [facility] Comment on above: Result Comment: Norm al < 5.7 % Prediabetic 5.7 - 6.4 % Diabetic >or= 6.5 % Please note range changes. Performed By: #### L 501.9985, L501.9520, L501.5200, L506.0200 ####[facility] [address] [place], [place], [id number] Hemoglobin A1c percentageOrd ered By: Ricardo Fontana on 09-21-2024 HbA1c (Bld) [Mass fraction] 5.5 % <5.7 [facility] Comment on above: Normal < 5.7 % Predi abetic 5.7 - 6.4 % Diabetic >or= 6.5 % Please note range changes. Hemoglobin measurementOrdere d By: Guilherme Collins on 09-21-2024 Hemoglobin (Bld) [Mass/Vol] 11.4 g/dL Low 12.0-15.0 [facility] Immature granulocytes/100 WB C Auto (Bld)Ordered By: Guilherme Collins on 09-21-2024 Immature granulocytes/100 WBC (Bld) 0.200 % 0.0-0.9 [facility] Comment on above: IG% - Immature Granu locytes (promyelocytes, myelocytes and metamyelocytes) > 1% indicates that a LEFT SHIFT is Present. Influenza virus A and B and SARS-CoV-2 (COVID-19) and Respiratory syncytial virus RNAOrdered By: Guilehrme Collins on 09-21-2024 SARS-CoV-2 (COVID-19) RNA ANTIONE+probe Ql (Unsp spec) [facility] Ketones Test strip Ql (U)Ord ered By: Guilherme Collins on 09-21-2024 Ketones Ql (U) Negative Negative [facility] Laboratory - Chemistry and C hemistry - challengeOrdered By: Guilherme Collins on 09-21-2024 AST [Catalytic activity/Vol] 30 U/L <32 [facility] Lactic Acidon 09-21-2024 Lactate [Moles/Vol] 1.1 mmol/L Normal 0.0-2.0 [facility] Comment on above: Order Comment: Y Performed By: #### L 100.0100, L503.6005, L500.4050 ####[facility] [address] [place], [place], [id number] Lactic acid measurementOrder ed By: Guilherme Collins on 09-21-2024 Lactate [Moles/Vol] 1.1 mmol/L 0.0-2.0 [facility] M100.678on 09-21-2024 M100.678 Pending SARS-CoV-2 (COVID 19) Negative INFLUENZA A Negative INFLUENZA B Negative RSV PCR Negative Normal [facility] Comment on above: Performed By: #### L 400.0001, M100.678 ####[facility] [address] [place], [place], [id number] MCV (mean corpuscular volume ) determinationOrdered By: Guilherme Collins on 09-21-2024 MCV (RBC) [Entitic vol] 95.9 fL 81-99 [facility] Magnesiumon 09-21-2024 Magnesium [Mass/Vol] 1.9 mg/dL Normal 1.5-2.2 [facility] Comment on above: Performed By: #### L 501.9985, L501.9555, L501.5200, L506.0200 ####[facility] [address] [place], [address] Magnesium measurement (mass/ volume)Ordered By: Ricardo Fontana on 09-21-2024 Magnesium (Unsp spec) [Mass/Vol] 1.9 mg/dL 1.5-2.2 [facility] Mean corpuscular hemoglobin (MCH) determinationOrdered By: Guilherme Collins on 09-21-2024 MCH (RBC) [Entitic mass] 31.3 pg 27.0-32.0 [facility] Mean corpuscular hemoglobin concentration (MCHC) determinationOrdered By: Guilherme Collins on 09-21-2024 MCHC (RBC) [Mass/Vol] 32.7 g/dL 32-36 [facility] Mean platelet volume determi nationOrdered By: Guilherme Collins on 09-21-2024 Platelet mean volume (Bld) [Entitic vol] 10.0 fL 6.2-12.0 [facility] Microscopic analysis of urin e for red blood cells (RBC)Ordered By: Guilherme Collins on 09-21-2024 Microscopic analysis of urine for red blood cells (RBC) 0 SEEN /hpf 0-5 [facility] Monocyte percentageOrdered B y: Guilherme Collins on 09-21-2024 Monocytes/100 WBC (Bld) 8.7 % 0-10 [facility] Mucus LM Ql (Urine sed)Order ed By: Guilherme Collins on 09-21-2024 Mucus Ql (Urine sed) 0 SEEN /hpf [facility] Neutrophil percentageOrdered By: Guilherme Colilns on 09-21-2024 Neutrophils/100 WBC (Bld) 79.3 % High 47-70 [facility] Nitrite Test strip Ql (U)Ord ered By: Guilherme Collins on 09-21-2024 Nitrite Ql (U) Negative Negative [facility] No Panel InformationOrdered By: Ricardo Fontana on 09-21-2024 Urine Buprenorphine Qualitative Negative < 200 ng/mL [facility] Urine Oxycodone Screen Negative < 100 ng/mL [facility] Negative < 200 ng/mL [facility] Nucleated red blood cell per centageOrdered By: Guilherme Collins on 09-21-2024 Nucleated RBC/100 WBC (Bld) [Ratio] 0 % 0-5 [facility] Platelet countOrdered By: Mansoor Collins on 09-21-2024 Platelets (Bld) [#/Vol] 339 10*3/uL 150-450 [facility] Potassium measurement (mass/ volume)Ordered By: Guilherme Collins on 09-21-2024 Potassium (Unsp spec) [Mass/Vol] 3.8 mmol/L 3.3-5.1 [facility] Comment on above: Hemolysis present, R esults could be affected. Protein Test strip Ql (U)Ord ered By: Guilherme Collins on 09-21-2024 Protein Ql (U) 15 mg/dl High Negative [facility] Quantitative urine opiates m easurementOrdered By: Ricardo Fontana on 09-21-2024 Opiates Ql (U) Negative < 300 ng/mL [facility] RBC Auto (Bld) [#/Vol]Ordere d By: Guilherme Collins on 09-21-2024 RBC (Bld) [#/Vol] 3.64 10*6/uL Low 4.2-5.4 [facility] Screening urine fentanyl eliezer surementOrdered By: Ricardo Fontana on 09-21-2024 fentaNYL Screen Ql (U) Negative [facility] Serum creatinine measurement (mass/volume)Ordered By: Guilherme Collins on 09-21-2024 Creatinine [Mass/Vol] 0.97 mg/dL 0.70-1.20 [facility] Serum globulin measurementOr dered By: Guilherme Collins on 09-21-2024 Globulin (S) [Mass/Vol] 3.1 g/dL 2.2-4.2 [facility] Serum glucose measurement (m ass/volume)Ordered By: Guilherme Collins on 09-21-2024 Glucose [Mass/Vol] 118 mg/dL High 70-99 [facility] Serum or plasma alanine soliz otransferase (ALT) measurementOrdered By: Guilherme Collins on 09-21-2024 ALT [Catalytic activity/Vol] 11 U/L <35 [facility] Serum or plasma albumin rosangela urement (mass/volume)Ordered By: Guilherme Collins on 09-21-2024 Albumin [Mass/Vol] 3.3 g/dL Low 3.4-4.8 [facility] Serum or plasma albumin/glob ulin mass ratioOrdered By: Guilherme Collins on 09-21-2024 Albumin/Globulin [Mass ratio] 1.1 {ratio} 0.9-2.4 [facility] Serum or plasma alkaline faustino sphatase measurementOrdered By: Guilherme Collins on 09-21-2024 ALP [Catalytic activity/Vol] 113 U/L High 35-104 [facility] Serum or plasma calcium rosangela urement (mass/volume)Ordered By: Guilherme Collins on 09-21-2024 Calcium [Mass/Vol] 9.0 mg/dL 7.6-11.0 [facility] Serum or plasma ethanol rosangela urement (mass/volume)Ordered By: Ricardo Fontana on 09-21-2024 Ethanol [Mass/Vol] mg/dL <10.1 [facility] Comment on above: This test is for med ical purposes only. The legal definition of intoxication varies according to local law. Serum or plasma urea nitroge n measurement (mass/volume)Ordered By: Guilherme Collins on 09-21-2024 Urea nitrogen [Mass/Vol] 8 mg/dL 4-19 [facility] Sodium levelOrdered By: Guilherme Collins on 09-21-2024 Sodium [Moles/Vol] 140 mmol/L 133-145 [facility] Squamous epithelial cells de tection in urine sediment by light microscopyOrdered By: Guilherme Collins on 09-21-2024 Epithelial cells.squamous LM Ql (Urine sed) 0 SEEN /hpf 5-10 [facility] TSH DL <= 0.005 mIU/L QnOrde red By: Ricardo Fontana on 09-21-2024 TSH Qn 0.358 uIU/mL 0.300-4.20 0 [facility] Thyroid Stim Hormone (TSH)on 09-21-2024 TSH 0.358 uIU/mL Normal 0.300-4.20 0 [facility] Comment on above: Performed By: #### L 501.9907, L501.9552, L501.5200, L506.0200 ####[facility] [address] [place], [address] Total proteinOrdered By: Aayush Collins on 09-21-2024 Protein [Mass/Vol] 6.4 g/dL 5.9-8.4 [facility] Urinalysis, Completeon 09-21 BACTERIA 2+ /hpf Normal None Seen [facility] Comment on above: Order Comment: CLEAN CATCH Performed By: #### L 400.0001, M100.678 ####[facility] [address] [place], [address] WBC 0-5 SEEN Normal 0-5 [facility] Comment on above: Order Comment: CLEAN CATCH Performed By: #### L 400.0001, M100.678 ####[facility] [address] [place], [address] YEAST 1+ /hpf Normal None Seen [facility] Comment on above: Order Comment: CLEAN CATCH Performed By: #### L 400.0001, M100.678 ####[facility] [address] [place], [address] EPI,SQUAMOUS 0 SEEN Normal 5-10 [facility] Comment on above: Order Comment: CLEAN CATCH Performed By: #### L 400.0001, M100.678 ####[facility] [address] [place], [address] Mucus Ql (Urine sed) [address] [facility] Comment on above: Order Comment: CLEAN CATCH Performed By: #### L 400.0001, M100.678 ####[facility] [address] [place], [address] RBC 0 SEEN Normal 0-5 [facility] Comment on above: Order Comment: CLEAN CATCH Performed By: #### L 400.0001, M100.678 ####[facility] [address] [place], [address] Urine Drug Screen (VISTA)on 09-21-2024 AMPHETAMINES Negative Normal <1000 ng/mL [facility] Comment on above: Performed By: #### L 501.9100, L505.5000 ####[facility] [address] [place], [address] BARBITIURATES Negative Normal < 200 ng/mL [facility] Comment on above: Performed By: #### L 501.9100, L505.5000 ####[facility] [address] [facility] [address] BENZODIAZIPINE Positive Normal < 200 ng/mL [facility] Comment on above: Result Comment: If c onfirmation testing is needed, a separate order will berequired to send out testing to the reference laboratory. Performed By: #### L 501.9100, L505.5000 ####[facility] [address] [facility] [address] BUP Ur Drug Scr Negative Normal < 200 ng/mL [facility] Comment on above: Performed By: #### L 501.9100, L505.5000 ####[facility] [address] [facility] [address] COCAINE Negative Normal < 300 ng/mL [facility] Comment on above: Performed By: #### L 501.9100, L505.5000 ####[facility] [address] [place], [address] Fentanyl Negative Normal [facility] Comment on above: Performed By: #### L 501.9100, L505.5000 ####[facility] [address] [place], [address] METHADONE Negative Normal < 300 ng/mL [facility] Comment on above: Performed By: #### L 501.9100, L505.5000 ####[facility] [address] [place], [address] OPIATES Negative Normal < 300 ng/mL [facility] Comment on above: Performed By: #### L 501.9100, L505.5000 ####[facility] [address] [place], [address] OXYCODONE Negative Normal < 100 ng/mL [facility] Comment on above: Performed By: #### L 501.9100, L505.5000 ####[facility] [address] [place], [address] PCP Negative Normal < 25 ng/mL [facility] Comment on above: Performed By: #### L 501.9100, L505.5000 ####[facility] [address] [place], [address] THC Negative Normal < 50 ng/mL [facility] Comment on above: Performed By: #### L 501.9100, L505.5000 ####[facility] [address] [place], [address] Urine benzodiazepine levelOr dered By: Ricardo Fontana on 09-21-2024 Benzodiazepines Ql (U) Positive < 200 ng/mL [facility] Comment on above: If confirmation test ing is needed, a separate order will be required to send out testing to the reference laboratory. Urine clarityOrdered By: Aayush Collins on 09-21-2024 Clarity (U) Clear Clear [facility] Urine cocaine levelOrdered B y: Ricardo Fontana on 09-21-2024 Cocaine Ql (U) Negative < 300 ng/mL [facility] Urine color determinationOrd ered By: Guilherme Collins on 09-21-2024 Color (U) Yellow Yellow [facility] Urine mfsiw-1-rlsdumczwarhzq abinol (THC) measurementOrdered By: Ricardo Fontana on 09-21-2024 Cannabinoids Screen Ql (U) Negative < 50 ng/mL [facility] Urine glucose detectionOrder ed By: Guilherme Collins on 09-21-2024 Glucose Ql (U) Normal mg/dl Normal [facility] Urine leukocyte esterase det ection by dipstickOrdered By: Guilherme Collins on 09-21-2024 Leukocyte esterase Test strip Ql (U) 100 /ul High Negative [facility] Urine pHOrdered By: Guilherme Triana ght on 09-21-2024 pH (U) 6.0 [pH] 5.0 - 8.0 [facility] Urine phencyclidine (PCP) de tectionOrdered By: Ricardo Fontana on 09-21-2024 Phencyclidine Ql (U) Negative < 25 ng/mL [facility] Urine sediment bacteria coun t by microscopy (number/high power field)Ordered By: Guilherme Collins on 09-21-2024 Bacteria LM.HPF (Urine sed) [#/Area] 2 /[HPF] None Seen [facility] Urine sediment yeast count b y microscopy (number/high powered field)Ordered By: Guilherme Collins on 09-21-2024 Yeast LM.HPF (Urine sed) [#/Area] 1 /[HPF] None Seen [facility] Urine specific gravity measu rementOrdered By: Guilherme Collins on 09-21-2024 Specific gravity (U) [Rel density] 1.015 1.002-1.03 0 [facility] Urine urobilinogen measureme ntOrdered By: Guilherme Collins on 09-21-2024 Urobilinogen Ql (U) Normal mg/dl Normal [facility] Vitamin B12on 09-21-2024 Cobalamin (Vitamin B12) [Mass/Vol] 757 pg/mL Normal 180-914 [facility] Comment on above: Performed By: #### L 503.0106 ####[facility] [address] [place], [place], [address] Vitamin B12 ser/plasOrdered By: Ricardo Fontana on 09-21-2024 Cobalamin (Vitamin B12) [Mass/Vol] 757 pg/mL 180-914 [facility] White blood cell (WBC) count Ordered By: Guilherme Collins on 09-21-2024 WBC (Bld) [#/Vol] 8.0 10*3/uL 4.4-11.0 [facility] White blood cell countOrdere d By: Guilherme Collins on 09-21-2024 White blood cell count 0-5 SEEN /hpf 0-5 [facility] Culture, Blood (WB)on 2024 CUB Blood cultures x2, f rom two different sites No growth in 5 days. Normal [facility] Comment on above: Performed By: #### M 200.1000, L300.4310, L503.6005, L300.3900, L100.0100, L500.4050 ####[facility] [address] [place], [address] Basic Metabolic Profile (BMP )on 09-01-2024 BUN Normal 4-19 [facility] Comment on above: Result Comment: Canc elled via OM: Order cancelled - Patient discharged Performed By: #### L 100.0500, L500.2500 ####[facility] [address] [place], [address] BUN/CRE Normal 10-20 [facility] Comment on above: Result Comment: Canc elled via OM: Order cancelled - Patient discharged Performed By: #### L 100.0500, L500.2500 ####[facility] [address] [place], [address] Calcium Normal 7.6-11.0 [facility] Comment on above: Result Comment: Canc elled via OM: Order cancelled - Patient discharged Performed By: #### L 100.0500, L500.2500 ####[facility] [address] [place], [address] CL Normal 98-108 [facility] Comment on above: Result Comment: Canc elled via OM: Order cancelled - Patient discharged Performed By: #### L 100.0500, L500.2500 ####[facility] [address] [place], [address] CO2 Normal 21.0-32.0 [facility] Comment on above: Result Comment: Canc elled via OM: Order cancelled - Patient discharged Performed By: #### L 100.0500, L500.2500 ####[facility] [address] [place], [address] CREAT,SERUM Normal 0.70-1.20 [facility] Comment on above: Result Comment: Canc elled via OM: Order cancelled - Patient discharged Performed By: #### L 100.0500, L500.2500 ####[facility] [address] [place], [address] eGFR Normal >60 [facility] Comment on above: Result Comment: Canc elled via OM: Order cancelled - Patient discharged Performed By: #### L 100.0500, L500.2500 ####[facility] [address] [place], [address] GAP Normal 5-15 [facility] Comment on above: Result Comment: Canc elled via OM: Order cancelled - Patient discharged Performed By: #### L 100.0500, L500.2500 ####[facility] [address] [place], [address] GLU Normal 70-99 [facility] Comment on above: Result Comment: Canc elled via OM: Order cancelled - Patient discharged Performed By: #### L 100.0500, L500.2500 ####[facility] [address] [place], [address] Potassium Normal 3.3-5.1 [facility] Comment on above: Result Comment: Canc elled via OM: Order cancelled - Patient discharged Performed By: #### L 100.0500, L500.2500 ####[facility] [address] [place], [address] Basic Metabolic Profile (BMP) Normal 133-145 [facility] Comment on above: Result Comment: Canc elled via OM: Order cancelled - Patient discharged Performed By: #### L 100.0500, L500.2500 ####[facility] [address] [place], [address] CBC-Complete Blood Cnt No Di ffon 09-01-2024 HCT Normal 37-47 [facility] Comment on above: Result Comment: Canc elled via OM: Order cancelled - Patient discharged Performed By: #### L 100.0500, L500.2500 ####[facility] [address] [place], [address] HGB Normal 12.0-15.0 [facility] Comment on above: Result Comment: Canc elled via OM: Order cancelled - Patient discharged Performed By: #### L 100.0500, L500.2500 ####[facility] [address] [place], [address] MCH Normal 27.0-32.0 [facility] Comment on above: Result Comment: Canc elled via OM: Order cancelled - Patient discharged Performed By: #### L 100.0500, L500.2500 ####[facility] [address] [place], [address] MCHC Normal 32-36 [facility] Comment on above: Result Comment: Canc elled via OM: Order cancelled - Patient discharged Performed By: #### L 100.0500, L500.2500 ####[facility] [address] [place], [address] MCV Normal 81-99 [facility] Comment on above: Result Comment: Canc elled via OM: Order cancelled - Patient discharged Performed By: #### L 100.0500, L500.2500 ####[facility] [address] [place], [address] PLT Normal 150-450 [facility] Comment on above: Result Comment: Canc elled via OM: Order cancelled - Patient discharged Performed By: #### L 100.0500, L500.2500 ####[facility] [address] [place], [address] RBC Normal 4.2-5.4 [facility] Comment on above: Result Comment: Canc elled via OM: Order cancelled - Patient discharged Performed By: #### L 100.0500, L500.2500 ####[facility] [address] [place], [address] RDW CV Normal 11.6-14.6 [facility] Comment on above: Result Comment: Canc elled via OM: Order cancelled - Patient discharged Performed By: #### L 100.0500, L500.2500 ####[facility] [address] [place], [address] RDW SD Normal 35.1-43.9 [facility] Comment on above: Result Comment: Canc elled via OM: Order cancelled - Patient discharged Performed By: #### L 100.0500, L500.2500 ####[facility] [address] [place], [address] WBC Normal 4.4-11.0 [facility] Comment on above: Result Comment: Canc elled via OM: Order cancelled - Patient discharged Performed By: #### L 100.0500, L500.2500 ####[facility] [address] [place], [address] Basic Metabolic Profile (BMP )on 08-31-2024 BUN Normal 4-19 [facility] Comment on above: Result Comment: Canc elled via OM: Order cancelled - Patient discharged Performed By: #### L 100.0500, L500.2500 ####[facility] [address] [place], [address] BUN/CRE Normal 10-20 [facility] Comment on above: Result Comment: Canc elled via OM: Order cancelled - Patient discharged Performed By: #### L 100.0500, L500.2500 ####[facility] [address] [place], [address] Calcium Normal 7.6-11.0 [facility] Comment on above: Result Comment: Canc elled via OM: Order cancelled - Patient discharged Performed By: #### L 100.0500, L500.2500 ####[facility] [address] [place], [address] CL Normal 98-108 [facility] Comment on above: Result Comment: Canc elled via OM: Order cancelled - Patient discharged Performed By: #### L 100.0500, L500.2500 ####[facility] [address] [place], [address] CO2 Normal 21.0-32.0 [facility] Comment on above: Result Comment: Canc elled via OM: Order cancelled - Patient discharged Performed By: #### L 100.0500, L500.2500 ####[facility] [address] [place], [address] CREAT,SERUM Normal 0.70-1.20 [facility] Comment on above: Result Comment: Canc elled via OM: Order cancelled - Patient discharged Performed By: #### L 100.0500, L500.2500 ####[facility] [address] [place], [address] eGFR Normal >60 [facility] Comment on above: Result Comment: Canc elled via OM: Order cancelled - Patient discharged Performed By: #### L 100.0500, L500.2500 ####[facility] [address] [place], [address] GAP Normal 5-15 [facility] Comment on above: Result Comment: Canc elled via OM: Order cancelled - Patient discharged Performed By: #### L 100.0500, L500.2500 ####[facility] [address] [place], [address] GLU Normal 70-99 [facility] Comment on above: Result Comment: Canc elled via OM: Order cancelled - Patient discharged Performed By: #### L 100.0500, L500.2500 ####[facility] [address] [place], [address] Potassium Normal 3.3-5.1 [facility] Comment on above: Result Comment: Canc elled via OM: Order cancelled - Patient discharged Performed By: #### L 100.0500, L500.2500 ####[facility] [address] [place], [address] Basic Metabolic Profile (BMP) Normal 133-145 [facility] Comment on above: Result Comment: Canc elled via OM: Order cancelled - Patient discharged Performed By: #### L 100.0500, L500.2500 ####[facility] [address] [place], [address] CBC-Complete Blood Cnt No Di ffon 08-31-2024 HCT Normal 37-47 [facility] Comment on above: Result Comment: Canc elled via OM: Order cancelled - Patient discharged Performed By: #### L 100.0500, L500.2500 ####[facility] [address] [place], [address] HGB Normal 12.0-15.0 [facility] Comment on above: Result Comment: Canc elled via OM: Order cancelled - Patient discharged Performed By: #### L 100.0500, L500.2500 ####[facility] [address] [place], [address] MCH Normal 27.0-32.0 [facility] Comment on above: Result Comment: Canc elled via OM: Order cancelled - Patient discharged Performed By: #### L 100.0500, L500.2500 ####[facility] [address] [place], [address] MCHC Normal 32-36 [facility] Comment on above: Result Comment: Canc elled via OM: Order cancelled - Patient discharged Performed By: #### L 100.0500, L500.2500 ####[facility] [address] [place], [address] MCV Normal 81-99 [facility] Comment on above: Result Comment: Canc elled via OM: Order cancelled - Patient discharged Performed By: #### L 100.0500, L500.2500 ####[facility] [address] [place], [address] PLT Normal 150-450 [facility] Comment on above: Result Comment: Canc elled via OM: Order cancelled - Patient discharged Performed By: #### L 100.0500, L500.2500 ####[facility] [address] [place], [address] RBC Normal 4.2-5.4 [facility] Comment on above: Result Comment: Canc elled via OM: Order cancelled - Patient discharged Performed By: #### L 100.0500, L500.2500 ####[facility] [address] [place], [address] RDW CV Normal 11.6-14.6 [facility] Comment on above: Result Comment: Canc elled via OM: Order cancelled - Patient discharged Performed By: #### L 100.0500, L500.2500 ####[facility] [address] [place], [address] RDW SD Normal 35.1-43.9 [facility] Comment on above: Result Comment: Canc elled via OM: Order cancelled - Patient discharged Performed By: #### L 100.0500, L500.2500 ####[facility] [address] [place], [address] WBC Normal 4.4-11.0 [facility] Comment on above: Result Comment: Canc elled via OM: Order cancelled - Patient discharged Performed By: #### L 100.0500, L500.2500 ####[facility] [address] [place], [address] Basic Metabolic Profile (BMP )on 08-30-2024 BUN Normal 4-19 [facility] Comment on above: Result Comment: Canc elled via OM: Order cancelled - Patient discharged Performed By: #### L 500.2500, L100.0500 ####[facility] [address] [place], [address] BUN/CRE Normal 10-20 [facility] Comment on above: Result Comment: Canc elled via OM: Order cancelled - Patient discharged Performed By: #### L 500.2500, L100.0500 ####[facility] [address] [place], [address] Calcium Normal 7.6-11.0 [facility] Comment on above: Result Comment: Canc elled via OM: Order cancelled - Patient discharged Performed By: #### L 500.2500, L100.0500 ####[facility] [address] [place], [address] CL Normal 98-108 [facility] Comment on above: Result Comment: Canc elled via OM: Order cancelled - Patient discharged Performed By: #### L 500.2500, L100.0500 ####[facility] [address] [place], [address] CO2 Normal 21.0-32.0 [facility] Comment on above: Result Comment: Canc elled via OM: Order cancelled - Patient discharged Performed By: #### L 500.2500, L100.0500 ####[facility] [address] [place], [address] CREAT,SERUM Normal 0.70-1.20 [facility] Comment on above: Result Comment: Canc elled via OM: Order cancelled - Patient discharged Performed By: #### L 500.2500, L100.0500 ####[facility] [address] [place], [address] eGFR Normal >60 [facility] Comment on above: Result Comment: Canc elled via OM: Order cancelled - Patient discharged Performed By: #### L 500.2500, L100.0500 ####[facility] [address] [place], [address] GAP Normal 5-15 [facility] Comment on above: Result Comment: Canc elled via OM: Order cancelled - Patient discharged Performed By: #### L 500.2500, L100.0500 ####[facility] [address] [place], [address] GLU Normal 70-99 [facility] Comment on above: Result Comment: Canc elled via OM: Order cancelled - Patient discharged Performed By: #### L 500.2500, L100.0500 ####[facility] [address] [place], [address] Potassium Normal 3.3-5.1 [facility] Comment on above: Result Comment: Canc elled via OM: Order cancelled - Patient discharged Performed By: #### L 500.2500, L100.0500 ####[facility] [address] [place], [address] Basic Metabolic Profile (BMP) Normal 133-145 [facility] Comment on above: Result Comment: Canc elled via OM: Order cancelled - Patient discharged Performed By: #### L 500.2500, L100.0500 ####[facility] [address] [place], [address] CBC-Complete Blood Cnt No Di ffon 08-30-2024 HCT Normal 37-47 [facility] Comment on above: Result Comment: Canc elled via OM: Order cancelled - Patient discharged Performed By: #### L 500.2500, L100.0500 ####[facility] [address] [place], [address] HGB Normal 12.0-15.0 [facility] Comment on above: Result Comment: Canc elled via OM: Order cancelled - Patient discharged Performed By: #### L 500.2500, L100.0500 ####[facility] [address] [place], [address] MCH Normal 27.0-32.0 [facility] Comment on above: Result Comment: Canc elled via OM: Order cancelled - Patient discharged Performed By: #### L 500.2500, L100.0500 ####[facility] [address] [place], [address] MCHC Normal 32-36 [facility] Comment on above: Result Comment: Canc elled via OM: Order cancelled - Patient discharged Performed By: #### L 500.2500, L100.0500 ####[facility] [address] [place], [address] MCV Normal 81-99 [facility] Comment on above: Result Comment: Canc elled via OM: Order cancelled - Patient discharged Performed By: #### L 500.2500, L100.0500 ####[facility] [address] [place], [address] PLT Normal 150-450 [facility] Comment on above: Result Comment: Canc elled via OM: Order cancelled - Patient discharged Performed By: #### L 500.2500, L100.0500 ####[facility] [address] [place], [address] RBC Normal 4.2-5.4 [facility] Comment on above: Result Comment: Canc elled via OM: Order cancelled - Patient discharged Performed By: #### L 500.2500, L100.0500 ####[facility] [address] [place], [address] RDW CV Normal 11.6-14.6 [facility] Comment on above: Result Comment: Canc elled via OM: Order cancelled - Patient discharged Performed By: #### L 500.2500, L100.0500 ####[facility] [address] [place], [address] RDW SD Normal 35.1-43.9 [facility] Comment on above: Result Comment: Canc elled via OM: Order cancelled - Patient discharged Performed By: #### L 500.2500, L100.0500 ####[facility] [address] [place], [address] WBC Normal 4.4-11.0 [facility] Comment on above: Result Comment: Canc elled via OM: Order cancelled - Patient discharged Performed By: #### L 500.2500, L100.0500 ####[facility] [address] [place], [address] Urine Cultureon 08-30-2024 URC Yeast, not Mary [place] a lbicans [place] Count 11,000-25,000 Normal [facility] Comment on above: Performed By: #### L 400.0001, M100.2200 ####[facility] [address] [place], [address] Anion gap in Serum or Plasma Ordered By: Christofer Espino on 08-29-2024 Anion gap [Moles/Vol] 11 mmol/L - [facility] BUN/creatinine ratioOrdered By: Christofer Espino on 08-29-2024 Urea nitrogen/Creatinine [Mass ratio] 11.8 mg/mg - [facility] Basic Metabolic Profile (BMP )on 08-29-2024 BUN/CRE 11.8 RATIO Normal - [facility] Comment on above: Performed By: #### L 500.2500, L100.0500 ####[facility] [address] [place], [address] Calcium [Mass/Vol] 8.3 mg/dL Normal 7.6-11.0 [facility] Comment on above: Performed By: #### L 500.2500, L100.0500 ####[facility] [address] [place], [address] Chloride [Moles/Vol] 109 mmol/L High 98-108 [facility] Comment on above: Performed By: #### L 500.2500, L100.0500 ####[facility] [address] [place], [address] CO2 [Moles/Vol] 20.9 mmol/L Low 21.0-32.0 [facility] Comment on above: Performed By: #### L 500.2500, L100.0500 ####[facility] [address] [place], [address] Creatinine [Mass/Vol] 0.73 mg/dL Normal 0.70-1.20 [facility] Comment on above: Performed By: #### L 500.2500, L100.0500 ####[facility] [address] [place], [address] ECRCL 47.71 ml/min Low 50-250 [facility] Comment on above: Performed By: #### L 500.2500, L100.0500 ####[facility] [address] [place], [address] GAP 11 Normal 5-15 [facility] Comment on above: Performed By: #### L 500.2500, L100.0500 ####[facility] [address] [place], [address] GFR/1.73 sq M.predicted among non-blacks MDRD (S/P/Bld) [Vol rate/Area] 86 mL/min/{1.73_m2} Normal >60 [facility] Comment on above: Result Comment: mL/m in/1.73m2 CKD-EPI Creatinine Equation (2020) Performed By: #### L 500.2500, L100.0500 ####[facility] [address] [place], [address] Glucose [Mass/Vol] 75 mg/dL Normal 70-99 [facility] Comment on above: Performed By: #### L 500.2500, L100.0500 ####[facility] [address] [place], [address] Potassium [Moles/Vol] 3.6 mmol/L Normal 3.3-5.1 [facility] Comment on above: Performed By: #### L 500.2500, L100.0500 ####[facility] [address] [place], [address] Sodium [Moles/Vol] 141 mmol/L Normal 133-145 [facility] Comment on above: Performed By: #### L 500.2500, L100.0500 ####[facility] [address] [place], [address] Urea nitrogen [Mass/Vol] 9 mg/dL Normal 4-19 [facility] Comment on above: Performed By: #### L 500.2500, L100.0500 ####[facility] [address] [place], [address] CBC-Complete Blood Cnt No ffon 08-29-2024 Erythrocyte distribution width (RBC) [Ratio] 13.2 % Normal 11.6-14.6 [facility] Comment on above: Performed By: #### L 500.2500, L100.0500 ####[facility] [address] [place], [address] Hematocrit (Bld) [Volume fraction] 29.9 % Low 37-47 [facility] Comment on above: Performed By: #### L 500.2500, L100.0500 ####[facility] [address] [place], [address] Hemoglobin (Bld) [Mass/Vol] 10.0 g/dL Low 12.0-15.0 [facility] Comment on above: Performed By: #### L 500.2500, L100.0500 ####[facility] [address] [place], [address] MCH (RBC) [Entitic mass] 31.6 pg Normal 27.0-32.0 [facility] Comment on above: Performed By: #### L 500.2500, L100.0500 ####[facility] [address] [place], [address] MCHC (RBC) [Mass/Vol] 33.4 g/dL Normal 32-36 [facility] Comment on above: Performed By: #### L 500.2500, L100.0500 ####[facility] [address] [place], [address] MCV (RBC) [Entitic vol] 94.6 fL Normal 81-99 [facility] Comment on above: Performed By: #### L 500.2500, L100.0500 ####[facility] [address] [place], [address] Platelet mean volume (Bld) [Entitic vol] 9.7 fL Normal 6.2-12.0 [facility] Comment on above: Performed By: #### L 500.2500, L100.0500 ####[facility] [address] [place], [address] Platelets (Bld) [#/Vol] 284 10*3/uL Normal 150-450 [facility] Comment on above: Performed By: #### L 500.2500, L100.0500 ####[facility] [address] [place], [address] RBC (Bld) [#/Vol] 3.16 10*6/uL Low 4.2-5.4 [facility] Comment on above: Performed By: #### L 500.2500, L100.0500 ####[facility] [address] [place], [address] RDW SD 45.9 fl High 35.1-43.9 [facility] Comment on above: Performed By: #### L 500.2500, L100.0500 ####[facility] [address] [place], [address] WBC (Bld) [#/Vol] 4.4 10*3/uL Normal 4.4-11.0 [facility] Comment on above: Performed By: #### L 500.2500, L100.0500 ####[facility] [address] [place], [address] Carbon dioxide, total [Moles /volume] in Central venous bloodOrdered By: Christofer Espino on 08-29-2024 CO2 [Moles/Vol] 20.9 mmol/L Low 21.0-32.0 [facility] Chloride assayOrdered By: Jeffrey Espino on 08-29-2024 Chloride [Moles/Vol] 109 mmol/L High 98-108 [facility] Discharge Instructionon 08-17 Discharge Instruction Normal [facility] Erythrocyte distribution wid th ratioOrdered By: Christofer Espino on 08-29-2024 Erythrocyte distribution width (RBC) [Ratio] 13.2 % 11.6-14.6 [facility] Erythrocyte distribution wid th standard deviationOrdered By: Christofer Espino on 08-29-2024 Erythrocyte distribution width (RBC) [Ratio] 45.9 fl High 35.1-43.9 [facility] Glomerular filtration rate ( GFR) estimation/1.73 sq m using serum, plasma, or whole bOrdered By: Christofer Espino on 08-29-2024 GFR/1.73 sq M.predicted among non-blacks MDRD (S/P/Bld) [Vol rate/Area] 86 mL/min/{1.73_m2} >60 [facility] Comment on above: mL/min/1.73m2 CKD-EP I Creatinine Equation (2020) Hematocrit Auto (Bld) [Volum e fraction]Ordered By: Christofer Espino on 08-29-2024 Hematocrit (Bld) [Volume fraction] 29.9 % Low 37-47 [facility] Hemoglobin measurementOrdere d By: Christofer Espino on 08-29-2024 Hemoglobin (Bld) [Mass/Vol] 10.0 g/dL Low 12.0-15.0 [facility] MCV (mean corpuscular volume ) determinationOrdered By: Christofer Espino on 08-29-2024 MCV (RBC) [Entitic vol] 94.6 fL 81-99 [facility] Mean corpuscular hemoglobin (MCH) determinationOrdered By: Christofer Espino on 08-29-2024 MCH (RBC) [Entitic mass] 31.6 pg 27.0-32.0 [facility] Mean corpuscular hemoglobin concentration (MCHC) determinationOrdered By: Christofer Espino on 08-29-2024 MCHC (RBC) [Mass/Vol] 33.4 g/dL 32-36 [facility] Mean platelet volume determi nationOrdered By: Christofer Espino on 08-29-2024 Platelet mean volume (Bld) [Entitic vol] 9.7 fL 6.2-12.0 [facility] Platelet countOrdered By: Jeffrey Espino on 08-29-2024 Platelets (Bld) [#/Vol] 284 10*3/uL 150-450 [facility] Potassium measurement (mass/ volume)Ordered By: Christofer Espino on 08-29-2024 Potassium (Unsp spec) [Mass/Vol] 3.6 mmol/L 3.3-5.1 [facility] RBC Auto (Bld) [#/Vol]Ordere d By: Christofer Espino on 08-29-2024 RBC (Bld) [#/Vol] 3.16 10*6/uL Low 4.2-5.4 [facility] Serum creatinine measurement (mass/volume)Ordered By: Christofer Espino on 08-29-2024 Creatinine [Mass/Vol] 0.73 mg/dL 0.70-1.20 [facility] Serum glucose measurement (m ass/volume)Ordered By: Christofer Espino on 08-29-2024 Glucose [Mass/Vol] 75 mg/dL 70-99 [facility] Serum or plasma calcium rosangela urement (mass/volume)Ordered By: Christofer Espino on 08-29-2024 Calcium [Mass/Vol] 8.3 mg/dL 7.6-11.0 [facility] Serum or plasma urea nitroge n measurement (mass/volume)Ordered By: Christofer Espino on 08-29-2024 Urea nitrogen [Mass/Vol] 9 mg/dL 4-19 [facility] Sodium levelOrdered By: Ezekiel Espino on 08-29-2024 Sodium [Moles/Vol] 141 mmol/L 133-145 [facility] White blood cell (WBC) count Ordered By: Christofer Espino on 08-29-2024 WBC (Bld) [#/Vol] 4.4 10*3/uL 4.4-11.0 [facility] Basic Metabolic Profile (BMP )on 08-28-2024 BUN/CRE 11.6 RATIO Normal 10-20 [facility] Comment on above: Performed By: #### L 500.2500, L100.0500 ####[facility] [address] [place], [address] Calcium [Mass/Vol] 7.7 mg/dL Normal 7.6-11.0 [facility] Comment on above: Performed By: #### L 500.2500, L100.0500 ####[facility] [address] [place], [address] Chloride [Moles/Vol] 109 mmol/L High 98-108 [facility] Comment on above: Performed By: #### L 500.2500, L100.0500 ####[facility] [address] [place], [address] CO2 [Moles/Vol] 20.4 mmol/L Low 21.0-32.0 [facility] Comment on above: Performed By: #### L 500.2500, L100.0500 ####[facility] [address] [place], [address] Creatinine [Mass/Vol] 0.78 mg/dL Normal 0.70-1.20 [facility] Comment on above: Performed By: #### L 500.2500, L100.0500 ####[facility] [address] [place], [address] ECRCL 47.71 ml/min Low 50-250 [facility] Comment on above: Performed By: #### L 500.2500, L100.0500 ####[facility] [address] [place], [address] GAP 11 Normal 5-15 [facility] Comment on above: Performed By: #### L 500.2500, L100.0500 ####[facility] [address] [place], [address] GFR/1.73 sq M.predicted among non-blacks MDRD (S/P/Bld) [Vol rate/Area] 79 mL/min/{1.73_m2} Normal >60 [facility] Comment on above: Result Comment: mL/m in/1.73m2 CKD-EPI Creatinine Equation (2020) Performed By: #### L 500.2500, L100.0500 ####[facility] [address] [place], [address] Glucose [Mass/Vol] 70 mg/dL Normal 70-99 [facility] Comment on above: Performed By: #### L 500.2500, L100.0500 ####[facility] [address] [place], [address] Potassium [Moles/Vol] 3.3 mmol/L Normal 3.3-5.1 [facility] Comment on above: Performed By: #### L 500.2500, L100.0500 ####[facility] [address] [place], [address] Sodium [Moles/Vol] 140 mmol/L Normal 133-145 [facility] Comment on above: Performed By: #### L 500.2500, L100.0500 ####[facility] [address] [place], [address] Urea nitrogen [Mass/Vol] 9 mg/dL Normal 4-19 [facility] Comment on above: Performed By: #### L 500.2500, L100.0500 ####[facility] [address] [place], [address] CBC-Complete Blood Cnt No Di ffon 08-28-2024 Erythrocyte distribution width (RBC) [Ratio] 13.4 % Normal 11.6-14.6 [facility] Comment on above: Performed By: #### L 500.2500, L100.0500 ####[facility] [address] [place], [address] Hematocrit (Bld) [Volume fraction] 29.4 % Low 37-47 [facility] Comment on above: Performed By: #### L 500.2500, L100.0500 ####[facility] [address] [place], [address] Hemoglobin (Bld) [Mass/Vol] 9.7 g/dL Low 12.0-15.0 [facility] Comment on above: Performed By: #### L 500.2500, L100.0500 ####[facility] [address] [place], [address] MCH (RBC) [Entitic mass] 31.7 pg Normal 27.0-32.0 [facility] Comment on above: Performed By: #### L 500.2500, L100.0500 ####[facility] [address] [place], [address] MCHC (RBC) [Mass/Vol] 33.0 g/dL Normal 32-36 [facility] Comment on above: Performed By: #### L 500.2500, L100.0500 ####[facility] [address] [place], [address] MCV (RBC) [Entitic vol] 96.1 fL Normal 81-99 [facility] Comment on above: Performed By: #### L 500.2500, L100.0500 ####[facility] [address] [place], [address] Platelet mean volume (Bld) [Entitic vol] 9.8 fL Normal 6.2-12.0 [facility] Comment on above: Performed By: #### L 500.2500, L100.0500 ####[facility] [address] [place], [address] Platelets (Bld) [#/Vol] 278 10*3/uL Normal 150-450 [facility] Comment on above: Performed By: #### L 500.2500, L100.0500 ####[facility] [address] [place], [address] RBC (Bld) [#/Vol] 3.06 10*6/uL Low 4.2-5.4 [facility] Comment on above: Performed By: #### L 500.2500, L100.0500 ####[facility] [address] [place], [address] RDW SD 47.2 fl High 35.1-43.9 [facility] Comment on above: Performed By: #### L 500.2500, L100.0500 ####[facility] [address] [place], [address] WBC (Bld) [#/Vol] 4.8 10*3/uL Normal 4.4-11.0 [facility] Comment on above: Performed By: #### L 500.2500, L100.0500 ####[facility] [address] [place], [address] Electrocardiogram reportOrde red By: Mil Snyder on 08-28-2024 EKG study [facility] [address] [place] [address] 12 Lead EKG 08/27/24 1633 MR#: [id number] Acct: [id number] Name: CAROL DAVID Rep #:[id number] : 1950 74 From: Mil banerjee MD Attending Dr: Dr. Christofer Espino DO Status: ADM IN Ordering Dr: Huber Ballard MD Date: 08/27 Location: [facility] Sex: F C Admitted: 08/27/24 Test Reason : Blood Pressure : */* mmHG Vent. Rate : 111 BPM Atrial Rate : 111 BPM P-R Int : 144 ms QRS Dur : 68 ms QT Int : 318 ms P-R-T Axes : 67 -29 63 degrees QTcB Int : 432 ms Sinus tachycardia Low voltage QRS Borderline ECG Confirmed by Mil Snyder ([id number]), legal editor GEGE COSTELLO ([id number]) on 510:15:17 AM Referred By: Confirmed By: Mil Snyder 08/28/24 1015 Date _ Mil Snyder MD CC: Dr. Christofer Espino DO; Dr. Harish Luis MD; Dr. Huber Ballard MD ~ Signed [facility] Other Phone: Legionella Antigen Urineon 0 08-28-2024 LEGU Normal [facility] Comment on above: Performed By: #### M 300.5390, M300.1380 ####[facility] [address] [place], [place], [id number] Magnesiumon 08-28-2024 Magnesium [Mass/Vol] 1.9 mg/dL Normal 1.5-2.2 [facility] Comment on above: Performed By: #### L 380.8110, M323.5134 ####[facility] [address] [place], [address] Magnesium measurement (mass/ volume)Ordered By: Christofer Espino on 08-28-2024 Magnesium (Unsp spec) [Mass/Vol] 1.9 mg/dL 1.5-2.2 [facility] Phosphoruson 08-28-2024 Phosphate [Mass/Vol] 2.7 mg/dL Normal 2.7-4.5 [facility] Comment on above: Performed By: #### L 501.2300, L501.5200 ####[facility] [address] [place], [address] Strep pneumoniae Antig(UR,CS F)on 08-28-2024 STPAG Normal [facility] Comment on above: Performed By: #### M 300.4500, M300.4600 ####[facility] [address] [place], [address] 12 Lead EKGon 08-27-2024 12 Lead EKG Normal [facility] Absolute lymphocyte countOrd ered By: Huberyandel Ballard on 08-27-2024 Lymphocytes Auto (Unsp spec) [#/Vol] 0.45 10*3/uL Low 0.83-4.51 [facility] Absolute neutrophil countOrd ered By: Huber Ballard on 08-27-2024 Neutrophils (Bld) [#/Vol] 5.6 10*3/uL 2.0-7.7 [facility] Activated partial thrombopla stin time (aPTT) in platelet poor plasma by coagulation aOrdered By: Huber Ballard on 08-27-2024 aPTT Coag (PPP) [Time] 36.4 s High 24.1-36.2 [facility] Anion gap in Serum or Plasma Ordered By: Huber Ballard on 08-27-2024 Anion gap [Moles/Vol] 11 mmol/L 5-15 [facility] Automated blood erythrocyte countOrdered By: Huberyandel Ballard on 08-27-2024 RBC (Bld) [#/Vol] 3.82 10*6/uL Low 4.2-5.4 [facility] Comment on above: Performed By: #### M 200.1000, L300.4310, L503.6005, L300.3900, L100.0100, L500.4050 ####[facility] [address] [place], [address] Automated blood hematocrit ( percentage)Ordered By: Huber Ballard on 08-27-2024 Hematocrit (Bld) [Volume fraction] 36.2 % Low 37-47 [facility] Comment on above: Performed By: #### M 200.1000, L300.4310, L503.6005, L300.3900, L100.0100, L500.4050 ####[facility] [address] [place], [address] Automated lymphocyte count a s percentage of total leukocytesOrdered By: Huber Ballard on 08-27-2024 Lymphocytes/100 WBC Auto (Unsp spec) 7.0 % Low 19-41 [facility] BUN/creatinine ratioOrdered By: Huberyandel Ballard on 08-27-2024 Urea nitrogen/Creatinine [Mass ratio] 12.2 mg/mg 10-20 [facility] Basophil percentageOrdered B y: Huber Ballard on 08-27-2024 Basophils/100 WBC (Bld) 0.5 % Normal 0-1 [facility] Comment on above: Performed By: #### M 200.1000, L300.4310, L503.6005, L300.3900, L100.0100, L500.4050 ####[facility] [address] [place], [address] Bilirubin Test strip Ql (U)O rdered By: Huber Ballard on 08-27-2024 Bilirubin Ql (U) Negative Negative [facility] Bilirubin, totalOrdered By: Huber Ballard on 08-27-2024 Bilirubin [Mass/Vol] 0.24 mg/dL Normal 0.00-1.30 [facility] Comment on above: Performed By: #### M 200.1000, L300.4310, L503.6005, L300.3900, L100.0100, L500.4050 ####[facility] [address] [place], [address] Blood cultureOrdered By: Huber Ballard on 08-27-2024 Bacteria identified Cx Nom (Bld) No growth in 5 days. [facility] CBC W/Diff, Automatedon 06- Absolute Lymph 0.45 X10 3/uL Low 0.83-4.51 [facility] Comment on above: Performed By: #### M 200.1000, L300.4310, L503.6005, L300.3900, L100.0100, L500.4050 ####[facility] [address] [place], [address] Absolute Neut 5.6 X10 3/uL Normal 2.0-7.7 [facility] Comment on above: Performed By: #### M 200.1000, L300.4310, L503.6005, L300.3900, L100.0100, L500.4050 ####[facility] [address] [place], [address] IG% 0.300 Normal 0.0-0.9 [facility] Comment on above: Result Comment: IG% - Immature Granulocytes (promyelocytes, myelocytes andmetamyelocytes) > 1% indicates that a LEFT SHIFT is Present. Performed By: #### M 200.1000, L300.4310, L503.6005, L300.3900, L100.0100, L500.4050 ####[facility] [address] [place], [address] Lymphocytes/100 WBC (Bld) 7.0 % Low 19-41 [facility] Comment on above: Performed By: #### M 200.1000, L300.4310, L503.6005, L300.3900, L100.0100, L500.4050 ####[facility] [address] [place], [address] Nucleated RBC (Bld) [#/Vol] 0 10*3/uL Normal 0-5 [facility] Comment on above: Performed By: #### M 200.1000, L300.4310, L503.6005, L300.3900, L100.0100, L500.4050 ####[facility] [address] [place], [address] RDW SD 46.5 fl High 35.1-43.9 [facility] Comment on above: Performed By: #### M 200.1000, L300.4310, L503.6005, L300.3900, L100.0100, L500.4050 ####[facility] [address] [place], [address] Carbon dioxide, total [Moles /volume] in Central venous bloodOrdered By: Huber Ballard on 08-27-2024 CO2 [Moles/Vol] 22.4 mmol/L Normal 21.0-32.0 [facility] Comment on above: Performed By: #### M 200.1000, L300.4310, L503.6005, L300.3900, L100.0100, L500.4050 ####[facility] [address] [place], [address] Chest 1 View (Portable)on Chest 1 View (Portable) Normal [facility] Chloride assayOrdered By: Malcom Ballard on 08-27-2024 Chloride [Moles/Vol] 102 mmol/L Normal 98-108 [facility] Comment on above: Performed By: #### M 200.1000, L300.4310, L503.6005, L300.3900, L100.0100, L500.4050 ####[facility] [address] [place], [address] Comprehensive Metabolic Prof ilon 08-27-2024 ALK PHOS 97 U/L Normal 35-104 [facility] Comment on above: Performed By: #### M 200.1000, L300.4310, L503.6005, L300.3900, L100.0100, L500.4050 ####[facility] [address] [place], [address] BUN/CRE 12.2 RATIO Normal 10-20 [facility] Comment on above: Performed By: #### M 200.1000, L300.4310, L503.6005, L300.3900, L100.0100, L500.4050 ####[facility] [address] [place], [address] ECRCL 35.35 ml/min Low 50-250 [facility] Comment on above: Performed By: #### M 200.1000, L300.4310, L503.6005, L300.3900, L100.0100, L500.4050 ####[facility] [address] [place], [address] GAP 11 Normal 5-15 [facility] Comment on above: Performed By: #### M 200.1000, L300.4310, L503.6005, L300.3900, L100.0100, L500.4050 ####[facility] [address] [place], [address] Potassium [Moles/Vol] 4.3 mmol/L Normal 3.3-5.1 [facility] Comment on above: Result Comment: Hemo lysis present, Results??could be affected.?? Performed By: #### M 200.1000, L300.4310, L503.6005, L300.3900, L100.0100, L500.4050 ####[facility] [address] [place], [address] T PROT 6.6 g/dL Normal 5.9-8.4 [facility] Comment on above: Performed By: #### M 200.1000, L300.4310, L503.6005, L300.3900, L100.0100, L500.4050 ####[facility] [address] [place], [address] Comprehensive Metabolic Prof ilOrdered By: Huber Ballard on 08-27-2024 AST [Catalytic activity/Vol] 53 U/L High <=31 [facility] Comment on above: Hemolysis present, R esults could be affected. Result Comment: Hemo lysis present, Results??could be affected.?? Performed By: #### M 200.1000, L300.4310, L503.6005, L300.3900, L100.0100, L500.4050 ####[facility] [address] [place], [place], [address] Emergency Department Summary on 08-27-2024 Emergency Department Summary Normal [facility] Eosinophil percentageOrdered By: Huber Ballard on 08-27-2024 Eosinophils/100 WBC (Bld) 0.2 % Normal 0-5 [facility] Comment on above: Performed By: #### M 200.1000, L300.4310, L503.6005, L300.3900, L100.0100, L500.4050 ####[facility] [address] [place], [place], [id number] Erythrocyte distribution wid th ratioOrdered By: Huber Goldo on 08-27-2024 Erythrocyte distribution width (RBC) [Ratio] 13.2 % Normal 11.6-14.6 [facility] Comment on above: Performed By: #### M 200.1000, L300.4310, L503.6005, L300.3900, L100.0100, L500.4050 ####[facility] [address] [place], [place], [id number] Erythrocyte distribution wid th standard deviationOrdered By: Huber Goldo on 08-27-2024 Erythrocyte distribution width (RBC) [Ratio] 46.5 fl High 35.1-43.9 [facility] Glomerular filtration rate ( GFR) estimation/1.73 sq m using serum, plasma, or whole bOrdered By: Huber Ballard on 08-27-2024 GFR/1.73 sq M.predicted among non-blacks MDRD (S/P/Bld) [Vol rate/Area] 54 mL/min/{1.73_m2} Low >60 [facility] Comment on above: mL/min/1.73m2 CKD-EP I Creatinine Equation (2020) Result Comment: mL/m in/1.73m2 CKD-EPI Creatinine Equation (2020) Performed By: #### M 200.1000, L300.4310, L503.6005, L300.3900, L100.0100, L500.4050 ####[facility] [address] [place], [address] H AND P Exam - Hospitaliston 08-27-2024 H&P Exam - Hospitalist Normal [facility] Hemoglobin measurementOrdere d By: Huber Ballard on 08-27-2024 Hemoglobin (Bld) [Mass/Vol] 12.1 g/dL Normal 12.0-15.0 [facility] Comment on above: Performed By: #### M 200.1000, L300.4310, L503.6005, L300.3900, L100.0100, L500.4050 ####[facility] [address] [place], [address] Immature granulocytes/100 WB C Auto (Bld)Ordered By: Huber Ballard on 08-27-2024 Immature granulocytes/100 WBC (Bld) 0.300 % 0.0-0.9 [facility] Comment on above: IG% - Immature Granu locytes (promyelocytes, myelocytes and metamyelocytes) > 1% indicates that a LEFT SHIFT is Present. International normalized rat io (INR) calculationOrdered By: Huber Ballard on 08-27-2024 INR Coag (Bld) [Relative time] 1.0 {INR} [facility] Ketones Test strip Ql (U)Ord ered By: Huber Ballard on 08-27-2024 Ketones Ql (U) Negative Negative [facility] Lactic acid measurementOrder ed By: Huber Ballard on 08-27-2024 Lactate [Moles/Vol] 1.1 mmol/L Normal 0.0-2.0 [facility] Comment on above: Order Comment: Y Performed By: #### M 200.1000, L300.4310, L503.6005, L300.3900, L100.0100, L500.4050 ####[facility] [address] [place], [address] MCV (mean corpuscular volume ) determinationOrdered By: Huber Ballard on 08-27-2024 MCV (RBC) [Entitic vol] 94.8 fL Normal 81-99 [facility] Comment on above: Performed By: #### M 200.1000, L300.4310, L503.6005, L300.3900, L100.0100, L500.4050 ####[facility] [address] [facility] [place], [address] Mean corpuscular hemoglobin (MCH) determinationOrdered By: Huber Ballard on 08-27-2024 MCH (RBC) [Entitic mass] 31.7 pg Normal 27.0-32.0 [facility] Comment on above: Performed By: #### M 200.1000, L300.4310, L503.6005, L300.3900, L100.0100, L500.4050 ####[facility] [address] [facility] [place], [address] Mean corpuscular hemoglobin concentration (MCHC) determinationOrdered By: Huber Ballard on 08-27-2024 MCHC (RBC) [Mass/Vol] 33.4 g/dL Normal 32-36 [facility] Comment on above: Performed By: #### M 200.1000, L300.4310, L503.6005, L300.3900, L100.0100, L500.4050 ####[facility] [address] [facility] [place], [address] Mean platelet volume determi nationOrdered By: Huber Ballard on 08-27-2024 Platelet mean volume (Bld) [Entitic vol] 9.6 fL Normal 6.2-12.0 [facility] Comment on above: Performed By: #### M 200.1000, L300.4310, L503.6005, L300.3900, L100.0100, L500.4050 ####[facility] [address] [place], [address] Microscopic analysis of urin e for red blood cells (RBC)Ordered By: Huber Ballard on 08-27-2024 Microscopic analysis of urine for red blood cells (RBC) 0-5 SEEN /hpf 0-5 [facility] Monocyte percentageOrdered B y: Huber Ballard on 08-27-2024 Monocytes/100 WBC (Bld) 5.1 % Normal 0-10 [facility] Comment on above: Performed By: #### M 200.1000, L300.4310, L503.6005, L300.3900, L100.0100, L500.4050 ####[facility] [address] [place], [address] Mucus LM Ql (Urine sed)Order ed By: Huber Ballard on 08-27-2024 Mucus Ql (Urine sed) 0 SEEN /hpf [facility] Neutrophil percentageOrdered By: Huber Ballard on 08-27-2024 Neutrophils/100 WBC (Bld) 86.9 % High 47-70 [facility] Comment on above: Performed By: #### M 200.1000, L300.4310, L503.6005, L300.3900, L100.0100, L500.4050 ####[facility] [address] [place], [address] Nitrite Test strip Ql (U)Ord ered By: Huber Ballard on 08-27-2024 Nitrite Ql (U) Negative Negative [facility] No Panel InformationOrdered By: Huber Ballard on 08-27-2024 53 U/L High <32 [facility] Nucleated red blood cell per centageOrdered By: Huber Ballard on 08-27-2024 Nucleated RBC/100 WBC (Bld) [Ratio] 0 % 0-5 [facility] Partial Thromboplast Timeon 08-27-2024 aPTT Coag (Bld) [Time] 36.4 s High 24.1-36.2 [facility] Comment on above: Performed By: #### M 200.1000, L300.4310, L503.6005, L300.3900, L100.0100, L500.4050 ####[facility] [address] [place], [address] Platelet countOrdered By: Malcom Ballard on 08-27-2024 Platelets (Bld) [#/Vol] 332 10*3/uL Normal 150-450 [facility] Comment on above: Performed By: #### M 200.1000, L300.4310, L503.6005, L300.3900, L100.0100, L500.4050 ####[facility] [address] [place], [address] Potassium measurement (mass/ volume)Ordered By: Huber Ballard on 08-27-2024 Potassium (Unsp spec) [Mass/Vol] 4.3 mmol/L 3.3-5.1 [facility] Comment on above: Hemolysis present, R esults could be affected. Protein Test strip Ql (U)Ord ered By: Huber Ballard on 08-27-2024 Protein Ql (U) 30 mg/dl High Negative [facility] Prothrombin Time w/INRon INR Coag (PPP) [Relative time] 1.0 {INR} Normal [facility] Comment on above: Performed By: #### M 200.1000, L300.4310, L503.6005, L300.3900, L100.0100, L500.4050 ####[facility] [address] [place], [address] Prothrombin timeOrdered By: Huber Ballard on 08-27-2024 PT Coag (PPP) [Time] 13.4 s Normal 11.7-14.9 [facility] Comment on above: Performed By: #### M 200.1000, L300.4310, L503.6005, L300.3900, L100.0100, L500.4050 ####[facility] [address] [place], [address] Serum creatinine measurement (mass/volume)Ordered By: Huber Ballard on 08-27-2024 Creatinine [Mass/Vol] 1.08 mg/dL Normal 0.70-1.20 [facility] Comment on above: Performed By: #### M 200.1000, L300.4310, L503.6005, L300.3900, L100.0100, L500.4050 ####[facility] [address] [place], [address] Serum globulin measurementOr dered By: Huber Ballard on 08-27-2024 Globulin (S) [Mass/Vol] 3.3 g/dL Normal 2.2-4.2 [facility] Comment on above: Performed By: #### M 200.1000, L300.4310, L503.6005, L300.3900, L100.0100, L500.4050 ####[facility] [address] [place], [address] Serum glucose measurement (m ass/volume)Ordered By: Huber Balalrd on 08-27-2024 Glucose [Mass/Vol] 91 mg/dL Normal 70-99 [facility] Comment on above: Performed By: #### M 200.1000, L300.4310, L503.6005, L300.3900, L100.0100, L500.4050 ####[facility] [address] [place], [address] Serum or plasma alanine soliz otransferase (ALT) measurementOrdered By: Huber Ballard on 08-27-2024 ALT [Catalytic activity/Vol] 19 U/L Normal <=34 [facility] Comment on above: Hemolysis present, R esults could be affected. Result Comment: Hemo lysis present, Results??could be affected.?? Performed By: #### M 200.1000, L300.4310, L503.6005, L300.3900, L100.0100, L500.4050 ####[facility] [address] [place], [place], [phone]) Serum or plasma albumin rosangela urement (mass/volume)Ordered By: Huber Ballard on 08-27-2024 Albumin [Mass/Vol] 3.3 g/dL Low 3.4-4.8 [facility] Comment on above: Performed By: #### M 200.1000, L300.4310, L503.6005, L300.3900, L100.0100, L500.4050 ####[facility] [address] [place], [address] Serum or plasma albumin/glob ulin mass ratioOrdered By: Huber Ballard on 08-27-2024 Albumin/Globulin [Mass ratio] 1.0 {ratio} Normal 0.9-2.4 [facility] Comment on above: Performed By: #### M 200.1000, L300.4310, L503.6005, L300.3900, L100.0100, L500.4050 ####[facility] [address] [place], [address] Serum or plasma alkaline faustino sphatase measurementOrdered By: Huber Ballard on 08-27-2024 ALP [Catalytic activity/Vol] 97 U/L 35-104 [facility] Serum or plasma calcium rosangela urement (mass/volume)Ordered By: Huber Ballard on 08-27-2024 Calcium [Mass/Vol] 8.4 mg/dL Normal 7.6-11.0 [facility] Comment on above: Performed By: #### M 200.1000, L300.4310, L503.6005, L300.3900, L100.0100, L500.4050 ####[facility] [address] [place], [address] Serum or plasma urea nitroge n measurement (mass/volume)Ordered By: Huber Ballard on 08-27-2024 Urea nitrogen [Mass/Vol] 13 mg/dL Normal 4-19 [facility] Comment on above: Performed By: #### M 200.1000, L300.4310, L503.6005, L300.3900, L100.0100, L500.4050 ####[facility] [address] [place], [address] Sodium levelOrdered By: Huber Ballard on 08-27-2024 Sodium [Moles/Vol] 136 mmol/L Normal 133-145 [facility] Comment on above: Performed By: #### M 200.1000, L300.4310, L503.6005, L300.3900, L100.0100, L500.4050 ####[facility] [address] [place], [address] Squamous epithelial cells de tection in urine sediment by light microscopyOrdered By: Huber Ballard on 08-27-2024 Epithelial cells.squamous LM Ql (Urine sed) 0-5 SEEN /hpf 5-10 [facility] Total proteinOrdered By: Huber Ballard on 08-27-2024 Protein [Mass/Vol] 6.6 g/dL 5.9-8.4 [facility] Urinalysis, Completeon 08-27 BACTERIA RARE Normal None Seen [facility] Comment on above: Order Comment: DENA TER SPECIMEN Performed By: #### L 400.0001, ####[facility] [address] [place], [address] EPI,SQUAMOUS 0-5 SEEN Normal 5-10 [facility] Comment on above: Order Comment: DENA TER SPECIMEN Performed By: #### L 400.0001, M1 ####[facility] [address] [place], [address] RBC 0-5 SEEN Normal 0-5 [facility] Comment on above: Order Comment: DENA TER SPECIMEN Performed By: #### L 400.0001, M1.0 ####[facility] [address] [place], [address] YEAST 2+ /hpf Normal None Seen [facility] Comment on above: Order Comment: DENA TER SPECIMEN Performed By: #### L 400.0001, M100.2200 ####[facility] [address] [place], [address] WBC 5-10 SEEN Normal 0-5 [facility] Comment on above: Order Comment: DENA TER SPECIMEN Performed By: #### L 400.0001, M100.0 ####[facility] [address] [place], [address] Mucus Ql (Urine sed) [address] [facility] Comment on above: Order Comment: DENA TER SPECIMEN Performed By: #### L 400.0001, M100.0 ####[facility] [address] [place], [address] Urine Legionella pneumophila antigen detectionOrdered By: Christofer Espino on 08-27-2024 L. pneumophila Ag Ql (U) [facility] Urine clarityOrdered By: Huber Ballard on 08-27-2024 Clarity (U) Sl Cldy Clear [facility] Urine color determinationOrd ered By: Huber Ballard on 08-27-2024 Color (U) Yellow Yellow [facility] Urine cultureOrdered By: Huber Ballard on 08-27-2024 Bacteria identified Cx Nom (U) Yeast, not Mary Alice albicans Abnormal [facility] Urine glucose detectionOrder ed By: Huber Ballard on 08-27-2024 Glucose Ql (U) Normal mg/dl Normal [facility] Urine leukocyte esterase det ection by dipstickOrdered By: Huber Ballard on 08-27-2024 Leukocyte esterase Test strip Ql (U) Negative Negative [facility] Urine pHOrdered By: Huber santamaria on 08-27-2024 pH (U) 6.0 [pH] 5.0 - 8.0 [facility] Urine sediment bacteria coun t by microscopy (number/high power field)Ordered By: Huber Ballard on 08-27-2024 Bacteria LM.HPF (Urine sed) [#/Area] RARE /hpf None Seen [facility] Urine sediment yeast count b y microscopy (number/high powered field)Ordered By: Huber Ballard on 08-27-2024 Yeast LM.HPF (Urine sed) [#/Area] 2 /[HPF] None Seen [facility] Urine specific gravity measu rementOrdered By: Huberyandel Ballard on 08-27-2024 Specific gravity (U) [Rel density] 1.015 1.002-1.03 0 [facility] Urine urobilinogen measureme ntOrdered By: Huberyandel Ballard on 08-27-2024 Urobilinogen Ql (U) Normal mg/dl Normal [facility] White blood cell (WBC) count Ordered By: Huberyandel Ballard on 08-27-2024 WBC (Bld) [#/Vol] 6.5 10*3/uL Normal 4.4-11.0 [facility] Comment on above: Performed By: #### M 200.1000, L300.4310, L503.6005, L300.3900, L100.0100, L500.4050 ####[facility] [address] [place], [place], [id number] White blood cell countOrdere d By: Huber Ballard on 08-27-2024 White blood cell count 5-10 SEEN /hpf 0-5 [facility] Absolute lymphocyte countOrd ered By: Harish Luis on 07-15-2024 Lymphocytes Auto (Unsp spec) [#/Vol] 1.65 10*3/uL 0.83-4.51 [facility] Absolute neutrophil countOrd ered By: Harish Luis on 07-15-2024 Neutrophils (Bld) [#/Vol] 4.2 10*3/uL 2.0-7.7 [facility] Anion gap in Serum or Plasma Ordered By: Harish Luis on 07-15-2024 Anion gap [Moles/Vol] 10 mmol/L 5-15 [facility] Automated lymphocyte count a s percentage of total leukocytesOrdered By: Harish Luis on 07-15-2024 Lymphocytes/100 WBC Auto (Unsp spec) 25.3 % 19-41 [facility] BUN/creatinine ratioOrdered By: Harish Luis on 07-15-2024 Urea nitrogen/Creatinine [Mass ratio] 8.0 mg/mg Low 10-20 [facility] Basophil percentageOrdered B y: Harish Luis on 07-15-2024 Basophils/100 WBC (Bld) 0.6 % 0-1 [facility] Bilirubin, totalOrdered By: Harish Luis on 07-15-2024 Bilirubin [Mass/Vol] 0.25 mg/dL 0.00-1.30 [facility] Brain/Head without Contrasto n 07-15-2024 Brain/Head without Contrast Normal [facility] CBC W/Diff, Automatedon 06-18 Absolute Lymph 1.65 X10 3/uL Normal 0.83-4.51 [facility] Comment on above: Performed By: #### L 500.4100, L100.0100, L501.9520, L506.1001, L500.4050 ####[facility] [address] [place], [address] Absolute Neut 4.2 X10 3/uL Normal 2.0-7.7 [facility] Comment on above: Performed By: #### L 500.4100, L100.0100, L501.9520, L506.1001, L500.4050 ####[facility] [facility] [address] [place], [address] Basophils/100 WBC (Bld) 0.6 % Normal 0-1 [facility] Comment on above: Performed By: #### L 500.4100, L100.0100, L501.9520, L506.1001, L500.4050 ####[facility] [address] [place], [address] Eosinophils/100 WBC (Bld) 1.8 % Normal 0-5 [facility] Comment on above: Performed By: #### L 500.4100, L100.0100, L501.9520, L506.1001, L500.4050 ####[facility] [address] [place], [address] Erythrocyte distribution width (RBC) [Ratio] 13.9 % Normal 11.6-14.6 [facility] Comment on above: Performed By: #### L 500.4100, L100.0100, L501.9520, L506.1001, L500.4050 ####[facility] [address] [place], [address] Hematocrit (Bld) [Volume fraction] 35.2 % Low 37-47 [facility] Comment on above: Performed By: #### L 500.4100, L100.0100, L501.9520, L506.1001, L500.4050 ####[facility] [address] [place], [address] Hemoglobin (Bld) [Mass/Vol] 11.6 g/dL Low 12.0-15.0 [facility] Comment on above: Performed By: #### L 500.4100, L100.0100, L501.9520, L506.1001, L500.4050 ####[facility] [address] [place], [address] IG% 0.600 Normal 0.0-0.9 [facility] Comment on above: Result Comment: IG% - Immature Granulocytes (promyelocytes, myelocytes andmetamyelocytes) > 1% indicates that a LEFT SHIFT is Present. Performed By: #### L 500.4100, L100.0100, L501.9520, L506.1001, L500.4050 ####[facility] [address] [place], [address] Lymphocytes/100 WBC (Bld) 25.3 % Normal 19-41 [facility] Comment on above: Performed By: #### L 500.4100, L100.0100, L501.9520, L506.1001, L500.4050 ####[facility] [address] [place], [address] MCH (RBC) [Entitic mass] 32.6 pg High 27.0-32.0 [facility] Comment on above: Performed By: #### L 500.4100, L100.0100, L501.9520, L506.1001, L500.4050 ####[facility] [address] [place], [address] MCHC (RBC) [Mass/Vol] 33.0 g/dL Normal 32-36 [facility] Comment on above: Performed By: #### L 500.4100, L100.0100, L501.9520, L506.1001, L500.4050 ####[facility] [address] [place], [address] MCV (RBC) [Entitic vol] 98.9 fL Normal 81-99 [facility] Comment on above: Performed By: #### L 500.4100, L100.0100, L501.9520, L506.1001, L500.4050 ####[facility] [address] [place], [address] Monocytes/100 WBC (Bld) 6.6 % Normal 0-10 [facility] Comment on above: Performed By: #### L 500.4100, L100.0100, L501.9520, L506.1001, L500.4050 ####[facility] [address] [place], [address] Neutrophils/100 WBC (Bld) 65.1 % Normal 47-70 [facility] Comment on above: Performed By: #### L 500.4100, L100.0100, L501.9520, L506.1001, L500.4050 ####[facility] [address] [place], [address] Nucleated RBC (Bld) [#/Vol] 0 10*3/uL Normal 0-5 [facility] Comment on above: Performed By: #### L 500.4100, L100.0100, L501.9520, L506.1001, L500.4050 ####[facility] [address] [place], [address] Platelet mean volume (Bld) [Entitic vol] 9.5 fL Normal 6.2-12.0 [facility] Comment on above: Performed By: #### L 500.4100, L100.0100, L501.9520, L506.1001, L500.4050 ####[facility] [address] [place], [address] Platelets (Bld) [#/Vol] 415 10*3/uL Normal 150-450 [facility] Comment on above: Performed By: #### L 500.4100, L100.0100, L501.9520, L506.1001, L500.4050 ####[facility] [address] [place], [address] RBC (Bld) [#/Vol] 3.56 10*6/uL Low 4.2-5.4 [facility] Comment on above: Performed By: #### L 500.4100, L100.0100, L501.9520, L506.1001, L500.4050 ####[facility] [address] [place], [address] RDW SD 51.2 fl High 35.1-43.9 [facility] Comment on above: Performed By: #### L 500.4100, L100.0100, L501.9520, L506.1001, L500.4050 ####[facility] [address] [place], [address] WBC (Bld) [#/Vol] 6.5 10*3/uL Normal 4.4-11.0 [facility] Comment on above: Performed By: #### L 500.4100, L100.0100, L501.9520, L506.1001, L500.4050 ####[facility] [address] [place], [address] Calculated very low density lipoprotein (VLDL) cholesterol measurementOrdered By: Harish Lius on 07-15-2024 Calculated very low density lipoprotein (VLDL) cholesterol measurement 15 mg/dL 5-40 [facility] Carbon dioxide, total [Moles /volume] in Central venous bloodOrdered By: Harish Luis on 07-15-2024 CO2 [Moles/Vol] 23.6 mmol/L 21.0-32.0 [facility] Chloride assayOrdered By: Levar Luis on 07-15-2024 Chloride [Moles/Vol] 109 mmol/L High 98-108 [facility] Comprehensive Metabolic Prof ilon 07-15-2024 Albumin [Mass/Vol] 3.2 g/dL Low 3.4-4.8 [facility] Comment on above: Performed By: #### L 500.4100, L100.0100, L501.9520, L506.1001, L500.4050 ####[facility] [address] [place], [address] Albumin/Globulin [Mass ratio] 1.0 {ratio} Normal 0.9-2.4 [facility] Comment on above: Performed By: #### L 500.4100, L100.0100, L501.9520, L506.1001, L500.4050 ####[facility] [address] [place], [address] ALK PHOS 100 U/L Normal 35-104 [facility] Comment on above: Performed By: #### L 500.4100, L100.0100, L501.9520, L506.1001, L500.4050 ####[facility] [address] [place], [address] ALT [Catalytic activity/Vol] 10 U/L Normal <=34 [facility] Comment on above: Performed By: #### L 500.4100, L100.0100, L501.9520, L506.1001, L500.4050 ####[facility] [address] [place], [address] AST [Catalytic activity/Vol] 16 U/L Normal <=31 [facility] Comment on above: Performed By: #### L 500.4100, L100.0100, L501.9520, L506.1001, L500.4050 ####[facility] [address] [place], [address] Bilirubin [Mass/Vol] 0.25 mg/dL Normal 0.00-1.30 [facility] Comment on above: Performed By: #### L 500.4100, L100.0100, L501.9520, L506.1001, L500.4050 ####[facility] [address] [place], [address] BUN/CRE 8.0 RATIO Low 10-20 [facility] Comment on above: Performed By: #### L 500.4100, L100.0100, L501.9520, L506.1001, L500.4050 ####[facility] [address] [place], [address] Calcium [Mass/Vol] 8.9 mg/dL Normal 7.6-11.0 [facility] Comment on above: Performed By: #### L 500.4100, L100.0100, L501.9520, L506.1001, L500.4050 ####[facility] [address] [place], [address] Chloride [Moles/Vol] 109 mmol/L High 98-108 [facility] Comment on above: Performed By: #### L 500.4100, L100.0100, L501.9520, L506.1001, L500.4050 ####[facility] [address] [place], [address] CO2 [Moles/Vol] 23.6 mmol/L Normal 21.0-32.0 [facility] Comment on above: Performed By: #### L 500.4100, L100.0100, L501.9520, L506.1001, L500.4050 ####[facility] [address] [place], [address] Creatinine [Mass/Vol] 0.97 mg/dL Normal 0.70-1.20 [facility] Comment on above: Performed By: #### L 500.4100, L100.0100, L501.9520, L506.1001, L500.4050 ####[facility] [address] [place], [address] GAP 10 Normal 5-15 [facility] Comment on above: Performed By: #### L 500.4100, L100.0100, L501.9520, L506.1001, L500.4050 ####[facility] [address] [place], [address] GFR/1.73 sq M.predicted among non-blacks MDRD (S/P/Bld) [Vol rate/Area] 61 mL/min/{1.73_m2} Normal >60 [facility] Comment on above: Result Comment: mL/m in/1.73m2 CKD-EPI Creatinine Equation (2020) Performed By: #### L 500.4100, L100.0100, L501.9520, L506.1001, L500.4050 ####[facility] [address] [place], [address] Globulin (S) [Mass/Vol] 3.1 g/dL Normal 2.2-4.2 [facility] Comment on above: Performed By: #### L 500.4100, L100.0100, L501.9520, L506.1001, L500.4050 ####[facility] [address] [place], [address] Glucose [Mass/Vol] 114 mg/dL High 70-99 [facility] Comment on above: Performed By: #### L 500.4100, L100.0100, L501.9520, L506.1001, L500.4050 ####[facility] [address] [place], [address] Potassium [Moles/Vol] 3.5 mmol/L Normal 3.3-5.1 [facility] Comment on above: Performed By: #### L 500.4100, L100.0100, L501.9520, L506.1001, L500.4050 ####[facility] [address] [place], [address] Sodium [Moles/Vol] 143 mmol/L Normal 133-145 [facility] Comment on above: Performed By: #### L 500.4100, L100.0100, L501.9520, L506.1001, L500.4050 ####[facility] [address] [place], [address] T PROT 6.3 g/dL Normal 5.9-8.4 [facility] Comment on above: Performed By: #### L 500.4100, L100.0100, L501.9520, L506.1001, L500.4050 ####[facility] [address] [place], [address] Urea nitrogen [Mass/Vol] 8 mg/dL Normal 4-19 [facility] Comment on above: Performed By: #### L 500.4100, L100.0100, L501.9520, L506.1001, L500.4050 ####[facility] [address] [place], [address] Eosinophil percentageOrdered By: Harish Luis on 07-15-2024 Eosinophils/100 WBC (Bld) 1.8 % 0-5 [facility] Erythrocyte distribution wid th ratioOrdered By: Harish Luis 07-15-2024 Erythrocyte distribution width (RBC) [Ratio] 13.9 % 11.6-14.6 [facility] Erythrocyte distribution wid th standard deviationOrdered By: Harish Luis 07-15-2024 Erythrocyte distribution width (RBC) [Ratio] 51.2 fl High 35.1-43.9 [facility] Glomerular filtration rate ( GFR) estimation/1.73 sq m using serum, plasma, or whole bOrdered By: Harish Toby on 07-15-2024 GFR/1.73 sq M.predicted among non-blacks MDRD (S/P/Bld) [Vol rate/Area] 61 mL/min/{1.73_m2} >60 [facility] Comment on above: mL/min/1.73m2 CKD-EP I Creatinine Equation (2020) Hematocrit Auto (Bld) [Volum e fraction]Ordered By: Harish Luis 07-15-2024 Hematocrit (Bld) [Volume fraction] 35.2 % Low 37-47 [facility] Hemoglobin measurementOrdere d By: Harish Luis 07-15-2024 Hemoglobin (Bld) [Mass/Vol] 11.6 g/dL Low 12.0-15.0 [facility] Immature granulocytes/100 WB C Auto (Bld)Ordered By: Harish Luis 07-15-2024 Immature granulocytes/100 WBC (Bld) 0.600 % 0.0-0.9 [facility] Comment on above: IG% - Immature Granu locytes (promyelocytes, myelocytes and metamyelocytes) > 1% indicates that a LEFT SHIFT is Present. LDL calc ser/plasOrdered By: Harish Luis 07-15-2024 Cholesterol in LDL [Mass/Vol] 151 mg/dL Normal [facility] Comment on above: Cskjxnwtqd=378-265 m g/dL & Higher Tnkv=237 mg/dL or greater Result Comment: Bord ximmyv=524-597 mg/dL Higher Uwjx=954 mg/dL or greater Performed By: #### L 500.4100, L100.0100, L501.9520, L506.1001, L500.4050 ####[facility] [address] [place], [address] Laboratory - Chemistry and C hemistry - challengeOrdered By: Harish Luis on 07-15-2024 AST [Catalytic activity/Vol] 16 U/L <32 [facility] Lipid Profileon 07-15-2024 CHOL:HDL 3.13 Normal [facility] Comment on above: Performed By: #### L 500.4100, L100.0100, L501.9520, L506.1001, L500.4050 ####[facility] [address] [place], [address] Cholesterol in VLDL [Mass/Vol] 15 mg/dL Normal 5-40 [facility] Comment on above: Performed By: #### L 500.4100, L100.0100, L501.9520, L506.1001, L500.4050 ####[facility] [address] [place], [address] MCV (mean corpuscular volume ) determinationOrdered By: Harish Luis on 07-15-2024 MCV (RBC) [Entitic vol] 98.9 fL 81-99 [facility] Mean corpuscular hemoglobin (MCH) determinationOrdered By: Harish Luis on 07-15-2024 MCH (RBC) [Entitic mass] 32.6 pg High 27.0-32.0 [facility] Mean corpuscular hemoglobin concentration (MCHC) determinationOrdered By: Harish Luis on 07-15-2024 MCHC (RBC) [Mass/Vol] 33.0 g/dL 32-36 [facility] Mean platelet volume determi nationOrdered By: Harish Luis on 07-15-2024 Platelet mean volume (Bld) [Entitic vol] 9.5 fL 6.2-12.0 [facility] Monocyte percentageOrdered B y: Harish Luis on 07-15-2024 Monocytes/100 WBC (Bld) 6.6 % 0-10 [facility] Neutrophil percentageOrdered By: Harish Luis on 07-15-2024 Neutrophils/100 WBC (Bld) 65.1 % 47-70 [facility] No Panel InformationOrdered By: Harish Luis on 07-15-2024 16 U/L <32 [facility] Nucleated red blood cell per centageOrdered By: Harish Luis on 07-15-2024 Nucleated RBC/100 WBC (Bld) [Ratio] 0 % 0-5 [facility] Platelet countOrdered By: Levar Luis on 07-15-2024 Platelets (Bld) [#/Vol] 415 10*3/uL 150-450 [facility] Potassium measurement (mass/ volume)Ordered By: Harish Luis on 07-15-2024 Potassium (Unsp spec) [Mass/Vol] 3.5 mmol/L 3.3-5.1 [facility] RBC Auto (Bld) [#/Vol]Ordere d By: Harish Luis on 07-15-2024 RBC (Bld) [#/Vol] 3.56 10*6/uL Low 4.2-5.4 [facility] Screening total cholesterol/ high density lipoprotein (HDL) cholesterol ratioOrdered By: Harish Luis 07-15-2024 Cholesterol.total/Tamera sterol in HDL [Mass ratio] 3.13 {ratio} [facility] Serum creatinine measurement (mass/volume)Ordered By: Harish Luis 07-15-2024 Creatinine [Mass/Vol] 0.97 mg/dL 0.70-1.20 [facility] Serum globulin measurementOr dered By: Harish Luis 07-15-2024 Globulin (S) [Mass/Vol] 3.1 g/dL 2.2-4.2 [facility] Serum glucose measurement (m ass/volume)Ordered By: Harish Luis 07-15-2024 Glucose [Mass/Vol] 114 mg/dL High 70-99 [facility] Serum or plasma alanine soliz otransferase (ALT) measurementOrdered By: Harish Luis 07-15-2024 ALT [Catalytic activity/Vol] 10 U/L <35 [facility] Serum or plasma albumin rosangela urement (mass/volume)Ordered By: Harish Luis on 07-15-2024 Albumin [Mass/Vol] 3.2 g/dL Low 3.4-4.8 [facility] Serum or plasma albumin/glob ulin mass ratioOrdered By: Harish Luis 07-15-2024 Albumin/Globulin [Mass ratio] 1.0 {ratio} 0.9-2.4 [facility] Serum or plasma alkaline faustino sphatase measurementOrdered By: Harish Luis 07-15-2024 ALP [Catalytic activity/Vol] 100 U/L 35-104 [facility] Serum or plasma calcium rosangela urement (mass/volume)Ordered By: Harish Luis 07-15-2024 Calcium [Mass/Vol] 8.9 mg/dL 7.6-11.0 [facility] Serum or plasma cholesterol in HDL measurement (mass/volume)Ordered By: Harish Luis 07-15-2024 Cholesterol in HDL [Mass/Vol] 78 mg/dL Normal [facility] Comment on above: National Cholesterol Education [...] sex and age. Performed By: #### L 500.4100, L100.0100, L501.9520, L506.1001, L500.4050 ####[facility] [address] [place], [address] Serum or plasma cholesterol measurement (mass/volume)Ordered By: Harish Luis 07-15-2024 Cholesterol [Mass/Vol] 245 mg/dL High <=200 [facility] Comment on above: Cholesterol level, D esirable <200 mg/dLBorderline high cholesterol 200-239 mg/dLHigh cholesterol >=240 mg/dLRecommendations of the NCEP Adult Treatment Panel for the following risk-cutoff thresholds for the [place] population. Result Comment: Chol esterol level, Desirable <200 mg/dLBorderline high cholesterol 200-239 mg/dLHigh cholesterol >=240 mg/dLRecommendations of the NCEP Adult Treatment Panel for thefollowing risk-cutoff thresholds for the [place] Americanpopulation. Performed By: #### L 500.4100, L100.0100, L501.9520, L506.1001, L500.4050 ####[facility] [address] [place], [address] Serum or plasma urea nitroge n measurement (mass/volume)Ordered By: Harish Luis on 07-15-2024 Urea nitrogen [Mass/Vol] 8 mg/dL 4-19 [facility] Sodium levelOrdered By: Harish Luis on 07-15-2024 Sodium [Moles/Vol] 143 mmol/L 133-145 [facility] TSH DL <= 0.005 mIU/L QnOrde red By: Harish Luis on 07-15-2024 TSH Qn 0.847 uIU/mL 0.300-4.20 0 [facility] Thyroid Stim Hormone (TSH)on 07-15-2024 TSH 0.847 uIU/mL Normal 0.300-4.20 0 [facility] Comment on above: Performed By: #### L 500.4100, L100.0100, L501.9520, L506.1001, L500.4050 ####[facility] [address] [place], [address] Total proteinOrdered By: Harish Luis on 07-15-2024 Protein [Mass/Vol] 6.3 g/dL 5.9-8.4 [facility] Triglycerides measurementOrd ered By: Harish Luis on 07-15-2024 Triglyceride [Mass/Vol] 77 mg/dL Normal [facility] Comment on above: The drugs N-Acetylcy steine and Metamizole may falsely depress this assay. Normal range: <150 mg/dLBorderline High: 150-199 mg/dLHigh: 200-499 mg/dLVery High: >500 mg/dL Result Comment: The drugs N-Acetylcysteine and Metamizole may falselydepress this assay.Normal range: <150 mg/dLBorderline High: 150-199 mg/dLHigh: 200-499 mg/dLVery High: >500 mg/dL Performed By: #### L 500.4100, L100.0100, L501.9520, L506.1001, L500.4050 ####[facility] [address] [place], [address] Vitamin D,25 Hydroxyon 07-15 Vitamin D 25-OH 46.3 ng/mL Normal 30-100 [facility] Comment on above: Result Comment: Amalia min D StatusDeficiency: <20 ng/mL (50nmol/L)Insufficiency: 20-30 ng/mL (50-75 nmol/L)Sufficiency: 30-100 ng/mL (75-250 nmol/L)Toxicity: >100 ng/mL (>250 nmol/L) Performed By: #### L 500.4100, L100.0100, L501.9520, L506.1001, L500.4050 ####[facility] [address] [place], [address] White blood cell (WBC) count Ordered By: Harish Luis on 07-15-2024 WBC (Bld) [#/Vol] 6.5 10*3/uL 4.4-11.0 [facility] Emergency Department Summary on 06-04-2024 Emergency Department Summary Normal [facility] Shoulder min 2 Viewson 06-04 Shoulder min [address] [facility] Urine Cultureon 04-03-2024 URC [place] albicans [place] Count 80,000-100,000 Normal [facility] Comment on above: Performed By: #### M 100.2200 ####[facility] [address] [place], [address] Brain/Head without Contrasto n 03-31-2024 Brain/Head without Contrast Normal [facility] Urine cultureOrdered By: Harish Luis on 03-31-2024 Bacteria identified Cx Nom (U) Mary Alice albicans Abnormal [facility] Influenza virus A and B and SARS-CoV-2 (COVID-19) and Respiratory syncytial virus RNAOrdered By: Harish Luis on 02-19-2024 SARS-CoV-2 (COVID-19) RNA ANTIONE+probe Ql (Unsp spec) [facility] M100.678on 02-19-2024 M100.678 Pending SARS-CoV-2 (COVID 19) Negative INFLUENZA A Negative INFLUENZA B Negative RSV PCR Negative Normal [facility] Comment on above: Performed By: #### M 100.678 ####[facility] [address] [place], [address] Vitamin D,25 Hydroxyon 01-09 Vitamin D 25-OH 35.4 ng/mL Normal [facility] Comment on above: Result Comment: Amalia min D 25(OH) Status Range Deficiency <20 ng/mL (50nmol/L) Insufficiency 20 - 30 ng/mL (50 - 75 nmol/L) Sufficiency 30 - 100 ng/mL (75 - 250 nmol/L) Toxicity >100 ng/mL (>250 nmol/L) Performed By: #### L 500.4100, L506.1000, L501.9520, L100.0100, L500.4050 ####[facility] [address] [place], [address] CBC W/Diff, Automatedon 12-18 Absolute Lymph 1.63 X10 3/uL Normal 0.83-4.51 [facility] Comment on above: Performed By: #### L 500.4100, L506.1000, L501.9520, L100.0100, L500.4050 ####[facility] [address] [place], [address] Absolute Neut 4.3 X10 3/uL Normal 2.0-7.7 [facility] Comment on above: Performed By: #### L 500.4100, L506.1000, L501.9520, L100.0100, L500.4050 ####[facility] [address] [place], [address] Basophils/100 WBC (Bld) 0.9 % Normal 0-1 [facility] Comment on above: Performed By: #### L 500.4100, L506.1000, L501.9520, L100.0100, L500.4050 ####[facility] [address] [place], [address] Eosinophils/100 WBC (Bld) 1.4 % Normal 0-5 [facility] Comment on above: Performed By: #### L 500.4100, L506.1000, L501.9520, L100.0100, L500.4050 ####[facility] [address] [place], [address] Erythrocyte distribution width (RBC) [Ratio] 14.9 % High 11.6-14.6 [facility] Comment on above: Performed By: #### L 500.4100, L506.1000, L501.9520, L100.0100, L500.4050 ####[facility] [address] [place], [address] Hematocrit (Bld) [Volume fraction] 36.7 % Low 37-47 [facility] Comment on above: Performed By: #### L 500.4100, L506.1000, L501.9520, L100.0100, L500.4050 ####[facility] [address] [place], [address] Hemoglobin (Bld) [Mass/Vol] 11.5 g/dL Low 12.0-15.0 [facility] Comment on above: Performed By: #### L 500.4100, L506.1000, L501.9520, L100.0100, L500.4050 ####[facility] [address] [place], [address] IG% 0.500 Normal 0.0-0.9 [facility] Comment on above: Result Comment: IG% - Immature Granulocytes (promyelocytes, myelocytes andmetamyelocytes) > 1% indicates that a LEFT SHIFT is Present. Performed By: #### L 500.4100, L506.1000, L501.9520, L100.0100, L500.4050 ####[facility] [address] [place], [address] Lymphocytes/100 WBC (Bld) 25.0 % Normal 19-41 [facility] Comment on above: Performed By: #### L 500.4100, L506.1000, L501.9520, L100.0100, L500.4050 ####[facility] [address] [place], [address] MCH (RBC) [Entitic mass] 30.6 pg Normal 27.0-32.0 [facility] Comment on above: Performed By: #### L 500.4100, L506.1000, L501.9520, L100.0100, L500.4050 ####[facility] [address] [place], [address] MCHC (RBC) [Mass/Vol] 31.3 g/dL Low 32-36 [facility] Comment on above: Performed By: #### L 500.4100, L506.1000, L501.9520, L100.0100, L500.4050 ####[facility] [address] [place], [address] MCV (RBC) [Entitic vol] 97.6 fL Normal 81-99 [facility] Comment on above: Performed By: #### L 500.4100, L506.1000, L501.9520, L100.0100, L500.4050 ####[facility] [address] [place], [address] Monocytes/100 WBC (Bld) 6.1 % Normal 0-10 [facility] Comment on above: Performed By: #### L 500.4100, L506.1000, L501.9520, L100.0100, L500.4050 ####[facility] [address] [place], [address] Neutrophils/100 WBC (Bld) 66.1 % Normal 47-70 [facility] Comment on above: Performed By: #### L 500.4100, L506.1000, L501.9520, L100.0100, L500.4050 ####[facility] [address] [place], [address] Nucleated RBC (Bld) [#/Vol] 0 10*3/uL Normal 0-5 [facility] Comment on above: Performed By: #### L 500.4100, L506.1000, L501.9520, L100.0100, L500.4050 ####[facility] [address] [place], [address] Platelet mean volume (Bld) [Entitic vol] 9.6 fL Normal 6.2-12.0 [facility] Comment on above: Performed By: #### L 500.4100, L506.1000, L501.9520, L100.0100, L500.4050 ####[facility] [address] [place], [address] Platelets (Bld) [#/Vol] 419 10*3/uL Normal 150-450 [facility] Comment on above: Performed By: #### L 500.4100, L506.1000, L501.9520, L100.0100, L500.4050 ####[facility] [address] [place], [address] RBC (Bld) [#/Vol] 3.76 10*6/uL Low 4.2-5.4 [facility] Comment on above: Performed By: #### L 500.4100, L506.1000, L501.9520, L100.0100, L500.4050 ####[facility] [address] [place], [address] RDW SD 53.9 fl High 35.1-43.9 [facility] Comment on above: Performed By: #### L 500.4100, L506.1000, L501.9520, L100.0100, L500.4050 ####[facility] [address] [place], [address] WBC (Bld) [#/Vol] 6.5 10*3/uL Normal 4.4-11.0 [facility] Comment on above: Performed By: #### L 500.4100, L506.1000, L501.9520, L100.0100, L500.4050 ####[facility] [address] [place], [address] Comprehensive Metabolic Prof [facility] 01-09-2024 Albumin [Mass/Vol] 2.7 g/dL Low 3.2-5.0 [facility] Comment on above: Performed By: #### L 500.4100, L506.1000, L501.9520, L100.0100, L500.4050 ####[facility] [address] [place], [address] Albumin/Globulin [Mass ratio] 0.8 {ratio} Low 0.9-2.4 [facility] Comment on above: Performed By: #### L 500.4100, L506.1000, L501.9520, L100.0100, L500.4050 ####[facility] [address] [place], [address] ALK P 90 U/L Normal 45-117 [facility] Comment on above: Performed By: #### L 500.4100, L506.1000, L501.9520, L100.0100, L500.4050 ####[facility] [address] [place], [address] ALT [Catalytic activity/Vol] 13 U/L Normal 13-56 [facility] Comment on above: Performed By: #### L 500.4100, L506.1000, L501.9520, L100.0100, L500.4050 ####[facility] [address] [place], [address] AST [Catalytic activity/Vol] 10 U/L Low 15-37 [facility] Comment on above: Performed By: #### L 500.4100, L506.1000, L501.9520, L100.0100, L500.4050 ####[facility] [address] [place], [address] Bilirubin [Mass/Vol] 0.20 mg/dL Normal 0.20-1.00 [facility] Comment on above: Result Comment: For patients on eltrombopag therapy, use of Dimension [place] TBIL is not recommended. Performed By: #### L 500.4100, L506.1000, L501.9520, L100.0100, L500.4050 ####[facility] [address] [place], [address] BUN/CRE 7.7 RATIO Low 10-20 [facility] Comment on above: Performed By: #### L 500.4100, L506.1000, L501.9520, L100.0100, L500.4050 ####[facility] [address] [place], [address] CA,Total 8.7 mg/dL Normal 8.5-10.1 [facility] Comment on above: Performed By: #### L 500.4100, L506.1000, L501.9520, L100.0100, L500.4050 ####[facility] [address] [place], [address] Chloride [Moles/Vol] 114 mmol/L High 98-107 [facility] Comment on above: Performed By: #### L 500.4100, L506.1000, L501.9520, L100.0100, L500.4050 ####[facility] [address] [place], [address] CO2 [Moles/Vol] 24.0 mmol/L Normal 21.0-32.0 [facility] Comment on above: Performed By: #### L 500.4100, L506.1000, L501.9520, L100.0100, L500.4050 ####[facility] [address] [place], [address] Creatinine [Mass/Vol] 0.91 mg/dL Normal 0.55-1.02 [facility] Comment on above: Result Comment: The validity of the calculated GFR GFRAA in patients over70 years has not been determined. Clinical correlation isessential. Performed By: #### L 500.4100, L506.1000, L501.9520, L100.0100, L500.4050 ####[facility] [address] [place], [address] EST GFR - AA 78 mL/min Normal >60 [facility] Comment on above: Result Comment: Afri can [place] GFR Calc Performed By: #### L 500.4100, L506.1000, L501.9520, L100.0100, L500.4050 ####[facility] [address] [place], [address] GAP 5 Normal 5-15 [facility] Comment on above: Performed By: #### L 500.4100, L506.1000, L501.9520, L100.0100, L500.4050 ####[facility] [address] [place], [address] GFR/1.73 sq M.predicted among non-blacks MDRD (S/P/Bld) [Vol rate/Area] 65 mL/min/{1.73_m2} Normal >60 [facility] Comment on above: Result Comment: Non- GFR Calc Performed By: #### L 500.4100, L506.1000, L501.9520, L100.0100, L500.4050 ####[facility] [address] [place], [address] Globulin (S) [Mass/Vol] 3.5 g/dL Normal 2.2-4.2 [facility] Comment on above: Performed By: #### L 500.4100, L506.1000, L501.9520, L100.0100, L500.4050 ####[facility] [address] [place], [address] Glucose [Mass/Vol] 108 mg/dL High 74-106 [facility] Comment on above: Result Comment: Fast ing Glucose result from 100 to 125 mg/dLsuggests IMPAIRED HOMEOSTASIS per A.D.A. criteria. Performed By: #### L 500.4100, L506.1000, L501.9520, L100.0100, L500.4050 ####[facility] [address] [place], [address] Potassium [Moles/Vol] 3.9 mmol/L Normal 3.5-5.1 [facility] Comment on above: Performed By: #### L 500.4100, L506.1000, L501.9520, L100.0100, L500.4050 ####[facility] [address] [place], [address] Sodium [Moles/Vol] 142 mmol/L Normal 136-145 [facility] Comment on above: Performed By: #### L 500.4100, L506.1000, L501.9520, L100.0100, L500.4050 ####[facility] [address] [place], [address] T PROT 6.2 g/dL Low 6.4-8.2 [facility] Comment on above: Performed By: #### L 500.4100, L506.1000, L501.9520, L100.0100, L500.4050 ####[facility] [address] [place], [address] Urea nitrogen [Mass/Vol] 7 mg/dL Normal 7-18 [facility] Comment on above: Performed By: #### L 500.4100, L506.1000, L501.9520, L100.0100, L500.4050 ####[facility] [address] [place], [address] Culture, Blood (WB)on 2023 CUB blood cultures x2, f rom 2 different sites No growth in 5 days. Normal [facility] Comment on above: Performed By: #### M 200.1000 ####[facility] [address] [place], [address] Lipid Profileon 01-09-2024 Cholesterol [Mass/Vol] 285 mg/dL High 200 [facility] Comment on above: Result Comment: <200 mg/dL Desirable 200-240 mg/dL Borderline >240 mg/dL High Risk Performed By: #### L 500.4100, L506.1000, L501.9520, L100.0100, L500.4050 ####[facility] [address] [place], [address] Cholesterol in HDL [Mass/Vol] 75 mg/dL Normal [facility] Comment on above: Result Comment: The drugs N-Acetylcysteine and Metamizole may falselydepress this assay. Reference Range HDL <40 mg/dL Low HDL Cholesterol HDL >or= 60 mg/dL High HDL Cholesterol Performed By: #### L 500.4100, L506.1000, L501.9520, L100.0100, L500.4050 ####[facility] [address] [place], [address] Cholesterol in LDL [Mass/Vol] 191 mg/dL High 0-130 [facility] Comment on above: Performed By: #### L 500.4100, L506.1000, L501.9520, L100.0100, L500.4050 ####[facility] [address] [place], [address] Cholesterol in VLDL [Mass/Vol] 19 mg/dL Normal 5-40 [facility] Comment on above: Performed By: #### L 500.4100, L506.1000, L501.9520, L100.0100, L500.4050 ####[facility] [address] [place], [address] Triglyceride [Mass/Vol] 97 mg/dL Normal [facility] Comment on above: Result Comment: The drugs N-Acetylcysteine and Metamizole may falselydepress this assay.Serum Triglycerides Reference Interval Normal <150 mg/dL Borderline high 150 - 199 mg/dL High 200 - 499 mg/dL Very High > or = 500 mg/dL Performed By: #### L 500.4100, L506.1000, L501.9520, L100.0100, L500.4050 ####[facility] [address] [place], [address] Thyroid Stim Hormone (TSH)on 01-09-2024 TSH 0.729 uIU/mL Normal 0.358-3.74 0 [facility] Comment on above: Performed By: #### L 500.4100, L506.1000, L501.9520, L100.0100, L500.4050 ####[facility] [address] [place], [address] Basic Metabolic Profile (BMP )on 01-04-2024 BUN/CRE 12.0 RATIO Normal 10-20 [facility] Comment on above: Performed By: #### L 500.2500, L100.0100 ####[facility] [address] [place], [address] CA,Total 8.3 mg/dL Low 8.5-10.1 [facility] Comment on above: Performed By: #### L 500.2500, L100.0100 ####[facility] [address] [place], [address] Chloride [Moles/Vol] 118 mmol/L High 98-107 [facility] Comment on above: Performed By: #### L 500.2500, L100.0100 ####[facility] [address] [place], [address] CO2 [Moles/Vol] 23.0 mmol/L Normal 21.0-32.0 [facility] Comment on above: Performed By: #### L 500.2500, L100.0100 ####[facility] [address] [place], [address] Creatinine [Mass/Vol] 0.75 mg/dL Normal 0.55-1.02 [facility] Comment on above: Result Comment: The validity of the calculated GFR GFRAA in patients over70 years has not been determined. Clinical correlation isessential. Performed By: #### L 500.2500, L100.0100 ####[facility] [address] [place], [address] ECRCL 49.53 ml/min Normal [facility] Comment on above: Performed By: #### L 500.2500, L100.0100 ####[facility] [address] [place], [address] EST GFR - AA 98 mL/min Normal >60 [facility] Comment on above: Result Comment: Afri can [place] GFR Calc Performed By: #### L 500.2500, L100.0100 ####[facility] [address] [place], [address] GAP 3 Low 5-15 [facility] Comment on above: Performed By: #### L 500.2500, L100.0100 ####[facility] [address] [place], [address] GFR/1.73 sq M.predicted among non-blacks MDRD (S/P/Bld) [Vol rate/Area] 81 mL/min/{1.73_m2} Normal >60 [facility] Comment on above: Result Comment: Non- GFR Calc Performed By: #### L 500.2500, L100.0100 ####[facility] [address] [place], [address] Glucose [Mass/Vol] 83 mg/dL Normal 74-106 [facility] Comment on above: Performed By: #### L 500.2500, L100.0100 ####[facility] [address] [place], [address] Potassium [Moles/Vol] 4.2 mmol/L Normal 3.5-5.1 [facility] Comment on above: Performed By: #### L 500.2500, L100.0100 ####[facility] [address] [place], [address] Sodium [Moles/Vol] 144 mmol/L Normal 136-145 [facility] Comment on above: Performed By: #### L 500.2500, L100.0100 ####[facility] [address] [place], [address] Urea nitrogen [Mass/Vol] 9 mg/dL Normal 7-18 [facility] Comment on above: Performed By: #### L 500.2500, L100.0100 ####[facility] [address] [place], [address] CBC W/Diff, Automatedon 12-17 Absolute Lymph 1.68 X10 3/uL Normal 0.83-4.51 [facility] Comment on above: Performed By: #### L 500.2500, L100.0100 ####[facility] [address] [place], [address] Absolute Neut 6.7 X10 3/uL Normal 2.0-7.7 [facility] Comment on above: Performed By: #### L 500.2500, L100.0100 ####[facility] [address] [place], [address] Basophils/100 WBC (Bld) 0.4 % Normal 0-1 [facility] Comment on above: Performed By: #### L 500.2500, L100.0100 ####[facility] [address] [place], [address] Eosinophils/100 WBC (Bld) 1.6 % Normal 0-5 [facility] Comment on above: Performed By: #### L 500.2500, L100.0100 ####[facility] [address] [place], [address] Erythrocyte distribution width (RBC) [Ratio] 15.0 % High 11.6-14.6 [facility] Comment on above: Performed By: #### L 500.2500, L100.0100 ####[facility] [address] [place], [address] Hematocrit (Bld) [Volume fraction] 31.2 % Low 37-47 [facility] Comment on above: Performed By: #### L 500.2500, L100.0100 ####[facility] [address] [place], [address] Hemoglobin (Bld) [Mass/Vol] 9.9 g/dL Low 12.0-15.0 [facility] Comment on above: Performed By: #### L 500.2500, L100.0100 ####[facility] [address] [place], [address] IG% 0.300 Normal 0.0-0.9 [facility] Comment on above: Result Comment: IG% - Immature Granulocytes (promyelocytes, myelocytes andmetamyelocytes) > 1% indicates that a LEFT SHIFT is Present. Performed By: #### L 500.2500, L100.0100 ####[facility] [address] [place], [address] Lymphocytes/100 WBC (Bld) 18.4 % Low 19-41 [facility] Comment on above: Performed By: #### L 500.2500, L100.0100 ####[facility] [address] [place], [address] MCH (RBC) [Entitic mass] 30.9 pg Normal 27.0-32.0 [facility] Comment on above: Performed By: #### L 500.2500, L100.0100 ####[facility] [address] [place], [address] MCHC (RBC) [Mass/Vol] 31.7 g/dL Low 32-36 [facility] Comment on above: Performed By: #### L 500.2500, L100.0100 ####[facility] [address] [place], [address] MCV (RBC) [Entitic vol] 97.5 fL Normal 81-99 [facility] Comment on above: Performed By: #### L 500.2500, L100.0100 ####[facility] [address] [place], [address] Monocytes/100 WBC (Bld) 5.9 % Normal 0-10 [facility] Comment on above: Performed By: #### L 500.2500, L100.0100 ####[facility] [address] [place], [address] Neutrophils/100 WBC (Bld) 73.4 % High 47-70 [facility] Comment on above: Performed By: #### L 500.2500, L100.0100 ####[facility] [address] [place], [address] Nucleated RBC (Bld) [#/Vol] 0 10*3/uL Normal 0-5 [facility] Comment on above: Performed By: #### L 500.2500, L100.0100 ####[facility] [address] [place], [address] Platelet mean volume (Bld) [Entitic vol] 9.8 fL Normal 6.2-12.0 [facility] Comment on above: Performed By: #### L 500.2500, L100.0100 ####[facility] [address] [place], [address] Platelets (Bld) [#/Vol] 314 10*3/uL Normal 150-450 [facility] Comment on above: Performed By: #### L 500.2500, L100.0100 ####[facility] [address] [place], [address] RBC (Bld) [#/Vol] 3.20 10*6/uL Low 4.2-5.4 [facility] Comment on above: Performed By: #### L 500.2500, L100.0100 ####[facility] [address] [place], [address] RDW SD 53.7 fl High 35.1-43.9 [facility] Comment on above: Performed By: #### L 500.2500, L100.0100 ####[facility] [address] [place], [address] WBC (Bld) [#/Vol] 9.1 10*3/uL Normal 4.4-11.0 [facility] Comment on above: Performed By: #### L 500.2500, L100.0100 ####[facility] [address] [place], [address] Discharge Instructionon 12-17 Discharge Instruction Normal [facility] Modified Barium Swallow Stud yon 01-04-2024 Modified Barium Swallow Study Normal [facility] RESPIRATORY PANEL MOLECULARo n 01-04-2024 RP PANEL Normal [facility] Comment on above: Performed By: #### M 100.638 ####[facility] [address] [place], [address] 12 Lead EKGon 01-03-2024 12 Lead EKG Normal [facility] Basic Metabolic Profile (BMP )on 01-03-2024 BUN/CRE 8.3 RATIO Low 01-05 [facility] Comment on above: Order Comment: 'TROP ' Serial specimen #1, #2 or #3: 1 Performed By: #### L 500.2500, L501.4020, L100.0100 ####[facility] [address] [place], [address] CA,Total 8.5 mg/dL Normal 8.5-10.1 [facility] Comment on above: Order Comment: 'TROP ' Serial specimen #1, #2 or #3: 1 Performed By: #### L 500.2500, L501.4020, L100.0100 ####[facility] [address] [place], [address] Chloride [Moles/Vol] 109 mmol/L High 98-107 [facility] Comment on above: Order Comment: 'TROP ' Serial specimen #1, #2 or #3: 1 Performed By: #### L 500.2500, L501.4020, L100.0100 ####[facility] [address] [place], [address] CO2 [Moles/Vol] 24.0 mmol/L Normal 21.0-32.0 [facility] Comment on above: Order Comment: 'TROP ' Serial specimen #1, #2 or #3: 1 Performed By: #### L 500.2500, L501.4020, L100.0100 ####[facility] [address] [place], [address] Creatinine [Mass/Vol] 0.96 mg/dL Normal 0.55-1.02 [facility] Comment on above: Order Comment: 'TROP ' Serial specimen #1, #2 or #3: 1 Result Comment: The validity of the calculated GFR GFRAA in patients over70 years has not been determined. Clinical correlation isessential. Performed By: #### L 500.2500, L501.4020, L100.0100 ####[facility] [address] [place], [address] ECRCL 39.38 ml/min Normal [facility] Comment on above: Order Comment: 'TROP ' Serial specimen #1, #2 or #3: 1 Performed By: #### L 500.2500, L501.4020, L100.0100 ####[facility] [address] [place], [address] EST GFR - AA 73 mL/min Normal >60 [facility] Comment on above: Order Comment: 'TROP ' Serial specimen #1, #2 or #3: 1 Result Comment: Afri can [place] GFR Calc Performed By: #### L 500.2500, L501.4020, L100.0100 ####[facility] [address] [place], [address] GAP 5 Normal 5-15 [facility] Comment on above: Order Comment: 'TROP ' Serial specimen #1, #2 or #3: 1 Performed By: #### L 500.2500, L501.4020, L100.0100 ####[facility] [address] [place], [address] GFR/1.73 sq M.predicted among non-blacks MDRD (S/P/Bld) [Vol rate/Area] 60 mL/min/{1.73_m2} Normal >60 [facility] Comment on above: Order Comment: 'TROP ' Serial specimen #1, #2 or #3: 1 Result Comment: Non- GFR Calc Performed By: #### L 500.2500, L501.4020, L100.0100 ####[facility] [address] [place], [address] Glucose [Mass/Vol] 114 mg/dL High 74-106 [facility] Comment on above: Order Comment: 'TROP ' Serial specimen #1, #2 or #3: 1 Result Comment: Fast ing Glucose result from 100 to 125 mg/dLsuggests IMPAIRED HOMEOSTASIS per A.D.A. criteria. Performed By: #### L 500.2500, L501.4020, L100.0100 ####[facility] [address] [place], [address] Potassium [Moles/Vol] 3.4 mmol/L Low 3.5-5.1 [facility] Comment on above: Order Comment: 'TROP ' Serial specimen #1, #2 or #3: 1 Performed By: #### L 500.2500, L501.4020, L100.0100 ####[facility] [address] [place], [address] Sodium [Moles/Vol] 138 mmol/L Normal 136-145 [facility] Comment on above: Order Comment: 'TROP ' Serial specimen #1, #2 or #3: 1 Performed By: #### L 500.2500, L501.4020, L100.0100 ####[facility] [address] [place], [address] Urea nitrogen [Mass/Vol] 8 mg/dL Normal 7-18 [facility] Comment on above: Order Comment: 'TROP ' Serial specimen #1, #2 or #3: 1 Performed By: #### L 500.2500, L501.4020, L100.0100 ####[facility] [address] [place], [address] Brain/Head without Contrasto n 01-03-2024 Brain/Head without Contrast Normal [facility] CBC W/Diff, Automatedon - Absolute Lymph 0.75 X10 3/uL Low 0.83-4.51 [facility] Comment on above: Performed By: #### L 500.2500, L501.4020, L100.0100 ####[facility] [address] [place], [address] Absolute Neut 15.7 X10 3/uL High 2.0-7.7 [facility] Comment on above: Performed By: #### L 500.2500, L501.4020, L100.0100 ####[facility] [address] [place], [address] Basophils/100 WBC (Bld) 0.2 % Normal 0-1 [facility] Comment on above: Performed By: #### L 500.2500, L501.4020, L100.0100 ####[facility] [address] [place], [address] Eosinophils/100 WBC (Bld) 0.1 % Normal 0-5 [facility] Comment on above: Performed By: #### L 500.2500, L501.4020, L100.0100 ####[facility] [address] [place], [address] Erythrocyte distribution width (RBC) [Ratio] 14.6 % Normal 11.6-14.6 [facility] Comment on above: Performed By: #### L 500.2500, L501.4020, L100.0100 ####[facility] [address] [place], [address] Hematocrit (Bld) [Volume fraction] 34.6 % Low 37-47 [facility] Comment on above: Performed By: #### L 500.2500, L501.4020, L100.0100 ####[facility] [address] [place], [address] Hemoglobin (Bld) [Mass/Vol] 11.0 g/dL Low 12.0-15.0 [facility] Comment on above: Performed By: #### L 500.2500, L501.4020, L100.0100 ####[facility] [address] [place], [address] IG% 0.500 Normal 0.0-0.9 [facility] Comment on above: Result Comment: IG% - Immature Granulocytes (promyelocytes, myelocytes andmetamyelocytes) > 1% indicates that a LEFT SHIFT is Present. Performed By: #### L 500.2500, L501.4020, L100.0100 ####[facility] [address] [place], [address] Lymphocytes/100 WBC (Bld) 4.3 % Low 19-41 [facility] Comment on above: Performed By: #### L 500.2500, L501.4020, L100.0100 ####[facility] [address] [place], [address] MCH (RBC) [Entitic mass] 30.5 pg Normal 27.0-32.0 [facility] Comment on above: Performed By: #### L 500.2500, L501.4020, L100.0100 ####[facility] [address] [place], [address] MCHC (RBC) [Mass/Vol] 31.8 g/dL Low 32-36 [facility] Comment on above: Performed By: #### L 500.2500, L501.4020, L100.0100 ####[facility] [address] [place], [address] MCV (RBC) [Entitic vol] 95.8 fL Normal 81-99 [facility] Comment on above: Performed By: #### L 500.2500, L501.4020, L100.0100 ####[facility] [address] [place], [address] Monocytes/100 WBC (Bld) 4.2 % Normal 0-10 [facility] Comment on above: Performed By: #### L 500.2500, L501.4020, L100.0100 ####[facility] [address] [place], [address] Neutrophils/100 WBC (Bld) 90.7 % High 47-70 [facility] Comment on above: Performed By: #### L 500.2500, L501.4020, L100.0100 ####[facility] [address] [place], [address] Nucleated RBC (Bld) [#/Vol] 0 10*3/uL Normal 0-5 [facility] Comment on above: Performed By: #### L 500.2500, L501.4020, L100.0100 ####[facility] [address] [place], [address] Platelet mean volume (Bld) [Entitic vol] 9.9 fL Normal 6.2-12.0 [facility] Comment on above: Performed By: #### L 500.2500, L501.4020, L100.0100 ####[facility] [address] [place], [address] Platelets (Bld) [#/Vol] 321 10*3/uL Normal 150-450 [facility] Comment on above: Performed By: #### L 500.2500, L501.4020, L100.0100 ####[facility] [address] [place], [address] RBC (Bld) [#/Vol] 3.61 10*6/uL Low 4.2-5.4 [facility] Comment on above: Performed By: #### L 500.2500, L501.4020, L100.0100 ####[facility] [address] [place], [address] RDW SD 50.7 fl High 35.1-43.9 [facility] Comment on above: Performed By: #### L 500.2500, L501.4020, L100.0100 ####[facility] [address] [place], [address] WBC (Bld) [#/Vol] 17.3 10*3/uL High 4.4-11.0 [facility] Comment on above: Performed By: #### L 500.2500, L501.4020, L100.0100 ####[facility] [address] [place], [address] Chest 1 View (Portable)on Chest 1 View (Portable) Normal [facility] Emergency Department Summary on 01-03-2024 Emergency Department Summary Normal [facility] H AND P Exam - Hospitaliston 01-03-2024 H&P Exam - Hospitalist Normal [facility] L501.4020on 01-03-2024 TROPONIN-I HS 3 pg/mL Normal 3.0-54.0 [facility] Comment on above: Order Comment: 'TROP ' Serial specimen #1, #2 or #3: 1 Result Comment: Plea se Note: New Test Units and Gender Specific Reference Ranges. For more information see Policy Stat Procedure [place] High Sensitivity Troponin (TNIH) and attachments. Performed By: #### L 500.2500, L501.4020, L100.0100 ####[facility] [address] [place], [address] Lactic Acidon 01-03-2024 Lactate [Moles/Vol] 1.0 mmol/L Normal 0.4-1.9 [facility] Comment on above: Order Comment: Y Performed By: #### L 503.6005 ####[facility] [address] [place], [address] Legionella Antigen Urineon 1 LEGU Normal [facility] Comment on above: Performed By: #### M 300.4600, M300.4500 ####[facility] [address] [place], [address] M100.019on 01-03-2024 M100.019 Negative Normal [facility] Comment on above: Performed By: #### M 100.019 ####[facility] [address] [place], [address] M100.678on 01-03-2024 M100.678 Pending SARS-CoV-2 (COVID 19) Negative INFLUENZA A Negative INFLUENZA B Negative RSV PCR Negative Normal [facility] Comment on above: Performed By: #### M 100.678, L400.0001 ####[facility] [address] [place], [address] Magnesiumon 01-03-2024 Magnesium [Mass/Vol] 1.9 mg/dL Normal 1.6-2.6 [facility] Comment on above: Performed By: #### L 501.5200 ####[facility] [address] [place], [address] Strep pneumoniae Antig(UR,CS F)on 01-03-2024 STPAG Normal [facility] Comment on above: Performed By: #### M 300.4600, M300.4500 ####[facility] [address] [place], [address] Urinalysis, Completeon 01-02 EPI,RENAL 0-5 SEEN Normal 0-5 [facility] Comment on above: Order Comment: COLLE CTOR TO SPECIFY Performed By: #### M 100.678, L400.0001 ####[facility] [address] [place], [address] RBC 0-5 SEEN Normal 0-5 [facility] Comment on above: Order Comment: [facility] CTOR TO SPECIFY Performed By: #### M 100.678, L400.0001 ####[facility] [address] [place], [address] WBC 25-50 SEEN Normal 0-5 [facility] Comment on above: Order Comment: [facility] CTOR TO SPECIFY Performed By: #### M 100.678, L400.0001 ####[facility] [address] [place], [address] YEAST 1+ /hpf Normal None Seen [facility] Comment on above: Order Comment: [facility] CTOR TO SPECIFY Performed By: #### M 100.678, L400.0001 ####[facility] [address] [place], [address] BACTERIA 4+ /hpf Normal None Seen [facility] Comment on above: Order Comment: [facility] CTOR TO SPECIFY Performed By: #### M 100.678, L400.0001 ####[facility] [address] [place], [address] EPI,SQUAMOUS 0 SEEN Normal 5-10 [facility] Comment on above: Order Comment: [facility] CTOR TO SPECIFY Performed By: #### M 100.678, L400.0001 ####[facility] [address] [place], [address] Mucus Ql (Urine sed) [address] [facility] Comment on above: Order Comment: [facility] CTOR TO SPECIFY Performed By: #### M 100.678, L400.0001 ####[facility] [address] [place], [address] Absolute lymphocyte countOrd ered By: Tony Haque on 07-30-2023 Lymphocytes Auto (Unsp spec) [#/Vol] 0.79 10*3/uL 0.83-4.51 [facility] Automated lymphocyte count a s percentage of total leukocytesOrdered By: Tony Haque on 07-30-2023 Lymphocytes/100 WBC Auto (Unsp spec) 8.8 % 19-41 [facility] Base excessOrdered By: Guilherme Collins on 07-30-2023 Base excess Calc (BldV) [Moles/Vol] -2 mmol/L -1.0-3.5 [facility] Basophil percentageOrdered B y: Tony Haque on 07-30-2023 Basophil percentage 0 SEEN /hpf 0-5 [facility] Ammonia (P) [Moles/Vol] 27.0 umol/L 11-32 [facility] Basophils/100 WBC (Bld) 0.3 % 0-1 [facility] Chloride [Moles/Vol] 108 mmol/L 98-107 [facility] Eosinophils/100 WBC (Bld) 0.2 % 0-5 [facility] Glucose [Mass/Vol] 110 mg/dL 74-106 [facility] Comment on above: Fasting Glucose resu lt from 100 to 125 mg/dL suggests IMPAIRED HOMEOSTASIS per A.D.A. criteria. Hemoglobin (Bld) [Mass/Vol] 10.9 g/dL 12.0-15.0 [facility] Lactate [Moles/Vol] 3.4 mmol/L 0.4-2.0 [facility] Comment on above: Critical Result(s) C alled at: 14:41:53 07/30/2023 by: Ramiro Stephenson RN (ER). Results read back by same. Monocytes/100 WBC (Bld) 8.2 % 0-10 [facility] Neutrophils (Bld) [#/Vol] 7.4 10*3/uL 2.0-7.7 [facility] Neutrophils/100 WBC (Bld) 81.8 % 47-70 [facility] Potassium [Moles/Vol] 3.4 mmol/L 3.5-5.1 [facility] Sodium [Moles/Vol] 139 mmol/L 136-145 [facility] WBC (Bld) [#/Vol] 9.0 10*3/uL 4.4-11.0 [facility] Bilirubin Test strip Ql (U)O rdered By: Tony Haque on 07-30-2023 Bilirubin Ql (U) 1 mg/dL Negative [facility] Comment on above: COLOR OF URINE MAY A FFECT DIPSTICK RESULTS. Blood manual differential co mment interpretation (narrative result)Ordered By: Tony Haque on 07-30-2023 Manual differential comment [place] (Bld) [Interp] See comment [facility] Comment on above: BANDS NOTED CO2 (BldV) [Moles/Vol]Ordere d By: Guilherme Collins on 07-30-2023 CO2 [Moles/Vol] 23 mmol/L 23-33 [facility] Determination of erythrocyte mean corpuscular volume (MCV)Ordered By: Tony Haque on 07-30-2023 MCV (RBC) [Entitic vol] 96.8 fL 81-99 [facility] Erythrocyte distribution wid th ratioOrdered By: Tony Haque on 07-30-2023 Erythrocyte distribution width (RBC) [Ratio] 13.7 % 11.6-14.6 [facility] Erythrocyte distribution wid th standard deviationOrdered By: Tony Haque on 07-30-2023 Erythrocyte distribution width (RBC) [Entitic vol] 48.8 fL 35.1-43.9 [facility] Hematocrit Auto (Bld) [Volum e fraction]Ordered By: Tony Haque on 07-30-2023 Hematocrit (Bld) [Volume fraction] 33.8 % 37-47 [facility] Immature granulocytes/100 WB C Auto (Bld)Ordered By: Tony Haque on 07-30-2023 Immature granulocytes/100 WBC (Bld) 0.700 % 0.0-0.9 [facility] Comment on above: IG% - Immature Granu locytes (promyelocytes, myelocytes and metamyelocytes) > 1% indicates that a LEFT SHIFT is Present. Ketones Test strip Ql (U)Ord ered By: Tony Haque on 07-30-2023 Ketones Ql (U) 5 mg/dl Negative [facility] Laboratory - Chemistry and C hemistry - challengeOrdered By: Anastasia Khan on 07-30-2023 Magnesium [Mass/Vol] 1.7 mg/dL 1.6-2.6 [facility] Natriuretic peptide B (Bld) [Mass/Vol] 88.3 pg/mL 0-100 [facility] Laboratory - Chemistry and C hemistry - challengeOrdered By: Guilherme Collins on 07-30-2023 HCO3 (Bld) [Moles/Vol] 22 mmol/L 22-26 [facility] Laboratory - Chemistry and C hemistry - challengeOrdered By: Tony Haque on 07-30-2023 CO2 [Moles/Vol] 22.0 mmol/L 21.0-32.0 [facility] Urea nitrogen/Creatinine [Mass ratio] 12.1 mg/mg 10-20 [facility] Laboratory - Drug toxicology Ordered By: Tony Haque on 07-30-2023 Amphetamines Ql (U) Negative <1000 ng/mL [facility] Benzodiazepines Ql (U) Positive < 200 ng/mL [facility] Cannabinoids Screen Ql (U) Negative < 50 ng/mL [facility] Cocaine Ql (U) Negative < 300 ng/mL [facility] Opiates Ql (U) Negative < 300 ng/mL [facility] Laboratory - Hematology and Cell countsOrdered By: Tony Haque on 07-30-2023 MCH (RBC) [Entitic mass] 31.2 pg 27.0-32.0 [facility] MCHC (RBC) [Mass/Vol] 32.2 g/dL 32-36 [facility] Nucleated RBC/100 WBC (Bld) [Ratio] 0 % 0-5 [facility] Platelet mean volume (Bld) [Entitic vol] 10.6 fL 6.2-12.0 [facility] Platelets (Bld) [#/Vol] 317 10*3/uL 150-450 [facility] Laboratory - Microbiology an d Antimicrobial susceptibilityOrdered By: Tony Haque on 07-30-2023 SARS-CoV-2 (COVID-19) RNA ANTIONE+probe Ql (Unsp spec) [facility] Mucus LM Ql (Urine sed)Order ed By: Tony Haque on 07-30-2023 Mucus Ql (Urine sed) 0 SEEN /hpf [facility] Nitrite Test strip Ql (U)Ord ered By: Tony Haque on 07-30-2023 Nitrite Ql (U) Negative Negative [facility] No Panel InformationOrdered By: Tony Haque on 07-30-2023 MDMA (Ecstasy) Screen Negative < 500 ng/mL [facility] Urine Barbiturates Screen Negative < 200 ng/mL [facility] Urine Drug Screen Comment [facility] Comment on above: CONFIRMATORY TESTING FOR [...] Urine Methadone Screen Negative < 300 ng/mL [facility] Urine RBC 0 SEEN /hpf 0-5 [facility] D-Dimer Quantitative (PE/DVT) 3.19 FEU/ug/m 0.27-0.49 [facility] Comment on above: D-Dimer ELEVATED (>0 .49): Additional studies and clinicalassessments are indicated to conclude diagnosis of:Deep Vein Thrombosis (DVT) or Pulmonary Embolism (PE) Estimated Creatinine Clearance Calc 22.77 ml/min [facility] Estimated GFR (MDRD) Amer 37 mL/min >60 [facility] Comment on above: GFR Calc Estimated GFR (MDRD) Non-Af Amer 31 mL/min >60 [facility] Comment on above: Non- GFR Calc Troponin I High Sensitivity 6 pg/mL 3.0-54.0 [facility] Comment on above: Please Note: New Nu t Units and Gender Specific Reference Ranges. For more information see Policy Stat Procedure [place] High Sensitivity Troponin (TNIH) and attachments. No Panel InformationOrdered By: Guilherme Collins on 07-30-2023 Blood Gas Oxygen Percent 21.0 [facility] Blood Gas Sample Site Not entered [facility] Blood Gas Specimen Type [place] [facility] Oxygen Delivery Device Not entered [facility] PCO2 venousOrdered By: Guilherme Collins on 07-30-2023 CO2 (BldV) [Partial pressure] 29.8 mm[Hg] 41-51 [facility] PO2 venousOrdered By: Guilherme reyes on 07-30-2023 Oxygen (BldV) [Partial pressure] 73 mm[Hg] 25-40 [facility] Protein Test strip Ql (U)Ord ered By: Tony Haque on 07-30-2023 Protein Ql (U) 15 mg/dl Negative [facility] RBC Auto (Bld) [#/Vol]Ordere d By: Tony Haque on 07-30-2023 RBC (Bld) [#/Vol] 3.49 10*6/uL 4.2-5.4 [facility] Review by pathologistOrdered By: Tony Haque on 07-30-2023 Pathologist review [place] (Unsp spec) [Interp] May foll [facility] Serum or plasma calcium rosangela urement (mass/volume)Ordered By: Tony Haque on 07-30-2023 Calcium [Mass/Vol] 8.6 mg/dL 8.5-10.1 [facility] Serum or plasma creatinine m easurement (mass/volume)Ordered By: Tony Haque on 07-30-2023 Creatinine [Mass/Vol] 1.74 mg/dL 0.55-1.02 [facility] Comment on above: The validity of the calculated GFR & GFRAA in patients over 70 years has not been determined. Clinical correlation is essential. Serum or plasma urea nitroge n measurement (mass/volume)Ordered By: Tony Haque on 07-30-2023 Urea nitrogen [Mass/Vol] 21 mg/dL 7-18 [facility] Smudge cell detectionOrdered By: Tony Haque on 07-30-2023 Smudge cells LM Ql (Bld) 1+ [facility] Squamous epithelial cells de tection in urine sediment by light microscopyOrdered By: Tony Haque on 07-30-2023 Epithelial cells.squamous LM Ql (Urine sed) 0 SEEN /hpf 5-10 [facility] Thin prep Papanicolaou smear with manual screeningOrdered By: Tony Haque on 07-30-2023 Thin prep Papanicolaou smear with manual screening 9 5-15 [facility] Urine blood detectionOrdered By: Tony Haque on 07-30-2023 RBC Ql (U) Negative Negative [facility] Urine clarityOrdered By: Marixa Haque on 07-30-2023 Clarity (U) Clear Clear [facility] Urine color determinationOrd ered By: Tony Haque on 07-30-2023 Color (U) Yellow Yellow [facility] Urine glucose detectionOrder ed By: Tony Haque on 07-30-2023 Glucose Ql (U) Normal mg/dl Normal [facility] Urine leukocyte esterase det ection by dipstickOrdered By: Tony Haque on 07-30-2023 Leukocyte esterase Test strip Ql (U) 25 /ul Negative [facility] Urine pHOrdered By: Tony mariscal on 07-30-2023 pH (U) 5.0 [pH] 5.0 - 8.0 [facility] Urine phencyclidine (PCP) de tectionOrdered By: Tony Haque on 07-30-2023 Phencyclidine Ql (U) Negative < 25 ng/mL [facility] Urine sediment bacteria coun t by microscopy (number/high power field)Ordered By: Tony Haque on 07-30-2023 Bacteria LM.HPF (Urine sed) [#/Area] 0 /[HPF] None Seen [facility] Urine specific gravity measu rementOrdered By: Tony Haque on 07-30-2023 Specific gravity (U) [Rel density] 1.020 1.002-1.03 0 [facility] Urine urobilinogen measureme ntOrdered By: Tony Haque on 07-30-2023 Urobilinogen Ql (U) 1 mg/dl Normal [facility] Venous blood pH measurementO rdered By: Guilherme Collins on 07-30-2023 pH (BldV) 7.47 [pH] 7.32-7.42 [facility] Vital signsOrdered By: Guilherme oCllins on 07-30-2023 Oxygen saturation in Blood 96 % 50-70 [facility] Absolute lymphocyte countOrd ered By: Harish Luis on 07-11-2023 Lymphocytes Auto (Unsp spec) [#/Vol] 1.63 10*3/uL 0.83-4.51 [facility] Automated lymphocyte count a s percentage of total leukocytesOrdered By: Harish Luis on 07-11-2023 Lymphocytes/100 WBC Auto (Unsp spec) 26.4 % 19-41 [facility] Basophil percentageOrdered B y: Harish Luis on 07-11-2023 Basophils/100 WBC (Bld) 1.0 % 0-1 [facility] Bilirubin [Mass/Vol] 0.40 mg/dL 0.20-1.00 [facility] Comment on above: For patients on eltr ombopag therapy, use of Dimension [place] TBIL is not recommended. Chloride [Moles/Vol] 109 mmol/L 98-107 [facility] Cholesterol [Mass/Vol] 314 mg/dL <200 [facility] Comment on above: <200 mg/dL Desirable 200-240 mg/dL Borderline >240 mg/dL High Risk Eosinophils/100 WBC (Bld) 2.3 % 0-5 [facility] Glucose [Mass/Vol] 114 mg/dL 74-106 [facility] Comment on above: Fasting Glucose resu lt from 100 to 125 mg/dL suggests IMPAIRED HOMEOSTASIS per A.D.A. criteria. Hemoglobin (Bld) [Mass/Vol] 12.9 g/dL 12.0-15.0 [facility] Monocytes/100 WBC (Bld) 6.5 % 0-10 [facility] Neutrophils (Bld) [#/Vol] 3.9 10*3/uL 2.0-7.7 [facility] Neutrophils/100 WBC (Bld) 63.3 % 47-70 [facility] Potassium [Moles/Vol] 3.6 mmol/L 3.5-5.1 [facility] Protein [Mass/Vol] 7.2 g/dL 6.4-8.2 [facility] Sodium [Moles/Vol] 141 mmol/L 136-145 [facility] Triglyceride [Mass/Vol] 135 mg/dL <199 [facility] Comment on above: The drugs N-Acetylcy steine and Metamizole may falsely depress this assay.Serum Triglycerides Reference Interval Normal <150 mg/dL Borderline high 150 - 199 mg/dL High 200 - 499 mg/dL Very High > or = 500 mg/dL WBC (Bld) [#/Vol] 6.2 10*3/uL 4.4-11.0 [facility] Determination of erythrocyte mean corpuscular volume (MCV)Ordered By: Harish Luis on 07-11-2023 MCV (RBC) [Entitic vol] 97.6 fL 81-99 [facility] Erythrocyte distribution wid th ratioOrdered By: Harish Toby on 07-11-2023 Erythrocyte distribution width (RBC) [Ratio] 14.1 % 11.6-14.6 [facility] Erythrocyte distribution wid th standard deviationOrdered By: [facility] on 07-11-2023 Erythrocyte distribution width (RBC) [Entitic vol] 51.5 fL 35.1-43.9 [facility] Hematocrit Auto (Bld) [Volum e fraction]Ordered By: [facility] on 07-11-2023 Hematocrit (Bld) [Volume fraction] 40.7 % 37-47 [facility] Immature granulocytes/100 WB C Auto (Bld)Ordered By: [facility] 07-11-2023 Immature granulocytes/100 WBC (Bld) 0.500 % 0.0-0.9 [facility] Comment on above: IG% - Immature Granu locytes (promyelocytes, myelocytes and metamyelocytes) > 1% indicates that a LEFT SHIFT is Present. Laboratory - Chemistry and C hemistry - challengeOrdered By: [facility] 07-11-2023 Albumin/Globulin [Mass ratio] 0.8 {ratio} 0.9-2.4 [facility] ALP [Catalytic activity/Vol] 103 U/L 45-117 [facility] ALT [Catalytic activity/Vol] 26 U/L 13-56 [facility] Cholesterol in HDL [Mass/Vol] 79 mg/dL >40 [facility] Comment on above: The drugs N-Acetylcy steine and Metamizole may falsely depress this assay. Reference Range HDL <40 mg/dL Low HDL Cholesterol HDL >or= 60 mg/dL High HDL Cholesterol Cholesterol in LDL [Mass/Vol] 208 mg/dL 0-130 [facility] CO2 [Moles/Vol] 26.0 mmol/L 21.0-32.0 [facility] Globulin (S) [Mass/Vol] 4.1 g/dL 2.2-4.2 [facility] Urea nitrogen/Creatinine [Mass ratio] 8.4 mg/mg 10-20 [facility] Laboratory - Hematology and Cell countsOrdered By: Harish Toby 07-11-2023 MCH (RBC) [Entitic mass] 30.9 pg 27.0-32.0 [facility] MCHC (RBC) [Mass/Vol] 31.7 g/dL 32-36 [facility] Nucleated RBC/100 WBC (Bld) [Ratio] 0 % 0-5 [facility] Platelet mean volume (Bld) [Entitic vol] 9.7 fL 6.2-12.0 [facility] Platelets (Bld) [#/Vol] 433 10*3/uL 150-450 [facility] No Panel InformationOrdered By: Harish Luis on 07-11-2023 Estimated GFR (MDRD) Amer 74 mL/min >60 [facility] Comment on above: GFR Calc Estimated GFR (MDRD) Non-Af Amer 61 mL/min >60 [facility] Comment on above: Non- GFR Calc Vitamin D 25-Hydroxy 24.5 ng/mL [facility] Comment on above: Vitamin D 25(OH) Sta tus Range Deficiency <20 ng/mL (50nmol/L) Insufficiency 20 - 30 ng/mL (50 - 75 nmol/L) Sufficiency 30 - 100 ng/mL (75 - 250 nmol/L) Toxicity >100 ng/mL (>250 nmol/L) VLDL Cholesterol 27 mg/dL 5-40 [facility] RBC Auto (Bld) [#/Vol]Ordere d By: Harish Luis on 07-11-2023 RBC (Bld) [#/Vol] 4.17 10*6/uL 4.2-5.4 [facility] Serum or plasma calcium rosangela urement (mass/volume)Ordered By: Harish Luis on 07-11-2023 Calcium [Mass/Vol] 8.8 mg/dL 8.5-10.1 [facility] Serum or plasma creatinine m easurement (mass/volume)Ordered By: Harish Luis on 07-11-2023 Creatinine [Mass/Vol] 0.96 mg/dL 0.55-1.02 [facility] Comment on above: The validity of the calculated GFR & GFRAA in patients over 70 years has not been determined. Clinical correlation is essential. Serum or plasma thyroid stim ulating hormone (TSH) measurement (units/volume)Ordered By: Harish Luis on 07-11-2023 TSH Qn 0.92 uIU/mL 0.358-3.74 [facility] Serum or plasma urea nitroge n measurement (mass/volume)Ordered By: Harish Luis on 07-11-2023 Urea nitrogen [Mass/Vol] 8 mg/dL 7-18 [facility] Thin prep Papanicolaou smear with manual screeningOrdered By: Harish Luis on 07-11-2023 Thin prep Papanicolaou smear with manual screening 3.1 g/dL 3.2-5.0 [facility] Thin prep Papanicolaou smear with manual screening 18 U/L 15-37 [facility] Thin prep Papanicolaou smear with manual screening 6 5-15 [facility] Culture, urineOrdered By: Levar Luis on 06-27-2023 Bacteria identified Cx Nom (U) Staphylococcus simulans [facility] Absolute lymphocyte countOrd ered By: Harish Luis on 01-01-2023 Lymphocytes Auto (Unsp spec) [#/Vol] 1.14 10*3/uL 0.83-4.51 [facility] Basophil percentageOrdered B y: Harish Luis on 01-01-2023 Basophils/100 WBC (Bld) 0.8 % 0-1 [facility] Bilirubin [Mass/Vol] 0.40 mg/dL 0.20-1.00 [facility] Comment on above: For patients on eltr ombopag therapy, use of Dimension [place] TBIL is not recommended. Chloride [Moles/Vol] 113 mmol/L 98-107 [facility] Eosinophils/100 WBC (Bld) 1.7 % 0-5 [facility] Glucose [Mass/Vol] 124 mg/dL 74-106 [facility] Comment on above: Fasting Glucose resu lt from 100 to 125 mg/dL suggests IMPAIRED HOMEOSTASIS per A.D.A. criteria. Neutrophils (Bld) [#/Vol] 4.5 10*3/uL 2.0-7.7 [facility] Neutrophils/100 WBC (Bld) 72.0 % 47-70 [facility] Potassium [Moles/Vol] 3.3 mmol/L 3.5-5.1 [facility] Protein [Mass/Vol] 6.4 g/dL 6.4-8.2 [facility] Sodium [Moles/Vol] 144 mmol/L 136-145 [facility] WBC (Bld) [#/Vol] 6.3 10*3/uL 4.4-11.0 [facility] Blood erythrocytes count (nu mber/volume)Ordered By: Harish Luis on 01-01-2023 RBC (Bld) [#/Vol] 3.99 10*6/uL 4.2-5.4 [facility] Blood hemoglobin measurement (mass/volume)Ordered By: Harish Luis on 01-01-2023 Hemoglobin (Bld) [Mass/Vol] 12.7 g/dL 12.0-15.0 [facility] Blood lymphocytes/100 leukoc ytesOrdered By: Harish Luis on 01-01-2023 Lymphocytes/100 WBC (Bld) 18.1 % 19-41 [facility] Blood monocytes/100 leukocyt esOrdered By: Harish Luis on 01-01-2023 Monocytes/100 WBC (Bld) 7.2 % 0-10 [facility] Blood platelet mean volumeOr dered By: Harish Luis on 01-01-2023 Platelet mean volume (Bld) [Entitic vol] 10.2 fL 6.2-12.0 [facility] Determination of erythrocyte mean corpuscular volume (MCV)Ordered By: Harish Luis on 01-01-2023 MCV (RBC) [Entitic vol] 96.7 fL 81-99 [facility] Hematocrit Auto (Bld) [Volum e fraction]Ordered By: Harish Luis on 01-01-2023 Hematocrit (Bld) [Volume fraction] 38.6 % 37-47 [facility] Laboratory - Chemistry and C hemistry - challengeOrdered By: Harish Luis on 01-01-2023 ALP [Catalytic activity/Vol] 106 U/L 45-117 [facility] ALT [Catalytic activity/Vol] 14 U/L 13-56 [facility] CO2 [Moles/Vol] 22.0 mmol/L 21.0-32.0 [facility] Globulin (S) [Mass/Vol] 3.6 g/dL 2.2-4.2 [facility] Urea nitrogen/Creatinine [Mass ratio] 8.0 mg/mg 10-20 [facility] Laboratory - Hematology and Cell countsOrdered By: Harish Luis on 01-01-2023 Erythrocyte distribution width (RBC) [Entitic vol] 49.0 fL 35.1-43.9 [facility] Erythrocyte distribution width (RBC) [Ratio] 13.7 % 11.6-14.6 [facility] Immature granulocytes/100 WBC (Bld) 0.200 % 0.0-0.9 [facility] Comment on above: IG% - Immature Granu locytes (promyelocytes, myelocytes and metamyelocytes) > 1% indicates that a LEFT SHIFT is Present. MCH (RBC) [Entitic mass] 31.8 pg 27.0-32.0 [facility] Nucleated RBC/100 WBC (Bld) [Ratio] 0 % 0-5 [facility] MCHC Auto (RBC) [Mass/Vol]Or dered By: Harish Luis on 01-01-2023 MCHC (RBC) [Mass/Vol] 32.9 g/dL 32-36 [facility] No Panel InformationOrdered By: Harish Luis on 01-01-2023 Estimated GFR (MDRD) Amer 61 mL/min >60 [facility] Comment on above: GFR Calc Estimated GFR (MDRD) Non-Af Amer 51 mL/min >60 [facility] Comment on above: Non- GFR Calc Thyroid Stimulating Hormone (TSH) 0.17 uIU/mL 0.358-3.74 [facility] Vitamin D 25-Hydroxy 39.2 ng/mL [facility] Comment on above: Vitamin D 25(OH) Sta tus Range Deficiency <20 ng/mL (50nmol/L) Insufficiency 20 - 30 ng/mL (50 - 75 nmol/L) Sufficiency 30 - 100 ng/mL (75 - 250 nmol/L) Toxicity >100 ng/mL (>250 nmol/L) Platelets bldOrdered By: Harish Luis on 01-01-2023 Platelets (Bld) [#/Vol] 345 10*3/uL 150-450 [facility] Serum or plasma albumin rosangela urement (mass/volume)Ordered By: Harish Luis on 01-01-2023 Albumin [Mass/Vol] 2.8 g/dL 3.2-5.0 [facility] Serum or plasma albumin/glob ulin mass ratioOrdered By: Harish Luis on 01-01-2023 Albumin/Globulin [Mass ratio] 0.8 {ratio} 0.9-2.4 [facility] Serum or plasma calcium rosangela urement (mass/volume)Ordered By: Harish Luis on 01-01-2023 Calcium [Mass/Vol] 8.5 mg/dL 8.5-10.1 [facility] Serum or plasma creatinine m easurement (mass/volume)Ordered By: Harish Luis on 01-01-2023 Creatinine [Mass/Vol] 1.12 mg/dL 0.55-1.02 [facility] Comment on above: The validity of the calculated GFR & GFRAA in patients over 70 years has not been determined. Clinical correlation is essential. Serum or plasma urea nitroge n measurement (mass/volume)Ordered By: Harish Luis on 01-01-2023 Urea nitrogen [Mass/Vol] 9 mg/dL 7-18 [facility] Thin prep Papanicolaou smear with manual screeningOrdered By: Harish Luis on 01-01-2023 Thin prep Papanicolaou smear with manual screening 12 U/L 15-37 [facility] Thin prep Papanicolaou smear with manual screening 9 5-15 [facility] Basophil percentageOrdered B y: Jesse Camejo on 11-04-2022 Chloride [Moles/Vol] 117 mmol/L 98-107 [facility] Glucose [Mass/Vol] 105 mg/dL 74-106 [facility] Comment on above: Fasting Glucose resu lt from 100 to 125 mg/dL suggests IMPAIRED HOMEOSTASIS per A.D.A. criteria. Potassium [Moles/Vol] 3.4 mmol/L 3.5-5.1 [facility] Sodium [Moles/Vol] 145 mmol/L 136-145 [facility] Laboratory - Chemistry and C hemistry - challengeOrdered By: Jesse Camejo on 11-04-2022 CO2 [Moles/Vol] 24.0 mmol/L 21.0-32.0 [facility] Urea nitrogen/Creatinine [Mass ratio] 6.3 mg/mg - [facility] No Panel InformationOrdered By: Jesse Camejo on 11-04-2022 Estimated Creatinine Clearance Calc 39.02 ml/min [facility] Estimated GFR (MDRD) Amer 119 mL/min >60 [facility] Comment on above: GFR Calc Estimated GFR (MDRD) Non-Af Amer 98 mL/min >60 [facility] Comment on above: Non- GFR Calc Serum or plasma calcium rosangela urement (mass/volume)Ordered By: Jesse Camejo on 11-04-2022 Calcium [Mass/Vol] 8.3 mg/dL 8.5-10.1 [facility] Serum or plasma creatinine m easurement (mass/volume)Ordered By: Jesse Camejo on 11-04-2022 Creatinine [Mass/Vol] 0.63 mg/dL 0.55-1.02 [facility] Comment on above: The validity of the calculated GFR & GFRAA in patients over 70 years has not been determined. Clinical correlation is essential. Serum or plasma urea nitroge n measurement (mass/volume)Ordered By: Jesse Camejo on 11-04-2022 Urea nitrogen [Mass/Vol] 4 mg/dL - [facility] Thin prep Papanicolaou smear with manual screeningOrdered By: Jesse Camejo on 11-04-2022 Thin prep Papanicolaou smear with manual screening 4 5-15 [facility] Absolute lymphocyte countOrd ered By: Jesse Camejo on 11-03-2022 Lymphocytes Auto (Unsp spec) [#/Vol] 1.21 10*3/uL 0.83-4.51 [facility] Basophil percentageOrdered B y: Jesse Camejo on 11-03-2022 Basophils/100 WBC (Bld) 1.3 % 0-1 [facility] Eosinophils/100 WBC (Bld) 4.8 % 0-5 [facility] Neutrophils (Bld) [#/Vol] 1.9 10*3/uL 2.0-7.7 [facility] Neutrophils/100 WBC (Bld) 50.2 % 47-70 [facility] WBC (Bld) [#/Vol] 3.8 10*3/uL 4.4-11.0 [facility] Blood erythrocytes count (nu mber/volume)Ordered By: Jesse Camejo on 11-03-2022 RBC (Bld) [#/Vol] 3.66 10*6/uL 4.2-5.4 [facility] Blood hemoglobin measurement (mass/volume)Ordered By: Jesse Camejo on 11-03-2022 Hemoglobin (Bld) [Mass/Vol] 11.5 g/dL 12.0-15.0 [facility] Blood lymphocytes/100 leukoc ytesOrdered By: Jesse Camejo on 11-03-2022 Lymphocytes/100 WBC (Bld) 32.0 % 19-41 [facility] Blood monocytes/100 leukocyt esOrdered By: Jesse Camejo on 11-03-2022 Monocytes/100 WBC (Bld) 11.4 % 0-10 [facility] Blood platelet mean volumeOr dered By: Jesse Camejo on 11-03-2022 Platelet mean volume (Bld) [Entitic vol] 9.4 fL 6.2-12.0 [facility] Determination of erythrocyte mean corpuscular volume (MCV)Ordered By: Jesse Camejo on 11-03-2022 MCV (RBC) [Entitic vol] 98.6 fL 81-99 [facility] Hematocrit Auto (Bld) [Volum e fraction]Ordered By: Jesse Camejo on 11-03-2022 Hematocrit (Bld) [Volume fraction] 36.1 % 37-47 [facility] INR in Blood by Coagulation assayOrdered By: Ken Johnston on 11-03-2022 INR Coag (Bld) [Relative time] 1.1 {INR} [facility] Laboratory - CoagulationOrde red By: Ken Johnston on 11-03-2022 aPTT Coag (Bld) [Time] 41.4 s 24.1-36.2 [facility] PT Coag (PPP) [Time] 14.7 s 11.7-14.9 [facility] Laboratory - Hematology and Cell countsOrdered By: Jesse Camejo on 11-03-2022 Erythrocyte distribution width (RBC) [Entitic vol] 50.4 fL 35.1-43.9 [facility] Erythrocyte distribution width (RBC) [Ratio] 13.9 % 11.6-14.6 [facility] Immature granulocytes/100 WBC (Bld) 0.300 % 0.0-0.9 [facility] Comment on above: IG% - Immature Granu locytes (promyelocytes, myelocytes and metamyelocytes) > 1% indicates that a LEFT SHIFT is Present. MCH (RBC) [Entitic mass] 31.4 pg 27.0-32.0 [facility] Nucleated RBC/100 WBC (Bld) [Ratio] 0 % 0-5 [facility] MCHC Auto (RBC) [Mass/Vol]Or dered By: Jesse Camejo on 11-03-2022 MCHC (RBC) [Mass/Vol] 31.9 g/dL 32-36 [facility] Platelets bldOrdered By: Eagle Camejo on 11-03-2022 Platelets (Bld) [#/Vol] 368 10*3/uL 150-450 [facility] Basophil percentageOrdered B y: Helena Ann on 11-02-2022 Basophil percentage 2.7 mg/dL 2.5-4.9 [facility] Laboratory - Chemistry and C hemistry - challengeOrdered By: Helena Ann on 11-02-2022 Magnesium [Mass/Vol] 2.2 mg/dL 1.6-2.6 [facility] Absolute lymphocyte countOrd ered By: Armando Miranda on 11-01-2022 Lymphocytes Auto (Unsp spec) [#/Vol] 1.37 10*3/uL 0.83-4.51 [facility] Assessment of wrist artery p atency prior to arterial punctureOrdered By: Armando Miranda on 11-01-2022 Arterial patency Wrist artery --pre arterial puncture Positive [facility] Bacterial cerebrospinal flui d cultureOrdered By: Helena nAn on 11-01-2022 Bacteria identified Cx Nom (CSF) No growth in 72 hours. [facility] Base excessOrdered By: Garrett Miranda on 11-01-2022 Base excess Calc (BldV) [Moles/Vol] -3 mmol/L -2-2 [facility] Basophil percentageOrdered B y: Armando Miranda on 11-01-2022 Basophil percentage 23.0 mmol/L 22-26 [facility] Basophils/100 WBC (Bld) 96 % 95-99 [facility] Basophil percentage 0 SEEN /hpf 0-5 [facility] Lactate [Moles/Vol] 0.9 mmol/L 0.4-2.0 [facility] Basophils/100 WBC (Bld) 1.9 % 0-1 [facility] Bilirubin [Mass/Vol] 0.40 mg/dL 0.20-1.00 [facility] Comment on above: For patients on eltr ombopag therapy, use of Dimension [place] TBIL is not recommended. Chloride [Moles/Vol] 114 mmol/L 98-107 [facility] Eosinophils/100 WBC (Bld) 5.0 % 0-5 [facility] Glucose [Mass/Vol] 100 mg/dL 74-106 [facility] Comment on above: Fasting Glucose resu lt from 100 to 125 mg/dL suggests IMPAIRED HOMEOSTASIS per A.D.A. criteria. Neutrophils (Bld) [#/Vol] 1.6 10*3/uL 2.0-7.7 [facility] Neutrophils/100 WBC (Bld) 44.7 % 47-70 [facility] Potassium [Moles/Vol] 3.7 mmol/L 3.5-5.1 [facility] Protein [Mass/Vol] 6.9 g/dL 6.4-8.2 [facility] Sodium [Moles/Vol] 144 mmol/L 136-145 [facility] WBC (Bld) [#/Vol] 3.6 10*3/uL 4.4-11.0 [facility] Basophil percentageOrdered B y: Helena Ann on 11-01-2022 Ammonia (P) [Moles/Vol] 11.0 umol/L 11-32 [facility] Bilirubin Test strip Ql (U)O rdered By: Armando Miranda on 11-01-2022 Bilirubin Ql (U) Negative Negative [facility] Blood erythrocytes count (nu mber/volume)Ordered By: Armando Miranda on 11-01-2022 RBC (Bld) [#/Vol] 3.87 10*6/uL 4.2-5.4 [facility] Blood hemoglobin measurement (mass/volume)Ordered By: Armando Miranda on 11-01-2022 Hemoglobin (Bld) [Mass/Vol] 12.2 g/dL 12.0-15.0 [facility] Blood lymphocytes/100 leukoc ytesOrdered By: Armando Miranda on 11-01-2022 Lymphocytes/100 WBC (Bld) 38.1 % 19-41 [facility] Blood monocytes/100 leukocyt esOrdered By: Armando Miranda on 11-01-2022 Monocytes/100 WBC (Bld) 10.0 % 0-10 [facility] Blood platelet mean volumeOr dered By: Armando Miranda on 11-01-2022 Platelet mean volume (Bld) [Entitic vol] 9.9 fL 6.2-12.0 [facility] CO2 (BldA) [Partial pressure ]Ordered By: Armando Miranda on 11-01-2022 CO2 (Bld) [Partial pressure] 41.6 mm[Hg] 35-45 [facility] Cerebrospinal fluid SARAH virus DNA detection by probe and target amplification methodOrdered By: Helena Ann on 11-01-2022 SARAH virus DNA ANTIONE+probe Ql (CSF) See comment [facility] Comment on above: Result: NegativeNo J CV DNA detectedThis test was developed and its performance characteristicsdetermined by [facility]. It has not been cleared or approvedby the Food and Drug Administration. The FDA hasdetermined that such clearance or approval is notnecessary.Performed at: [address] [id number] Director: Kody Garcia MD, Phone: [phone] Cerebrospinal fluid appearan ce descriptionOrdered By: Helena Ann on 11-01-2022 Appearance (CSF) CLEAR Clear [facility] Cerebrospinal fluid cell cou ntOrdered By: Helena Ann on 11-01-2022 Cell count panel (CSF) TNP [facility] Comment on above: Test not performed Cerebrospinal fluid color id entificationOrdered By: Helena Ann on 11-01-2022 Color (CSF) COLORLESS Colorless [facility] Cerebrospinal fluid glucose measurement (mass/volume)Ordered By: Helena Ann on 11-01-2022 Glucose (CSF) [Mass/Vol] 62 mg/dL 40-75 [facility] Cerebrospinal fluid white bl ood cell countOrdered By: Helena Ann on 11-01-2022 WBC (CSF) [#/Vol] 0 /mm-3 0-5 [facility] Cytology report of Body flui d Cyto stainOrdered By: Helena Ann on 11-01-2022 Cytology report Cyto stain Doc (Body fld) SEE PATHOLOGY REPORT [facility] Comment on above: Specimen submitted t o Anatomical Pathology Department for testing. Determination of erythrocyte mean corpuscular volume (MCV)Ordered By: Armando Miranda on 11-01-2022 MCV (RBC) [Entitic vol] 99.5 fL 81-99 [facility] Gram stain for investigation of transfusion reactionOrdered By: Helena Ann on 11-01-2022 Microscopic observation Gram stain Nom (Unsp spec) [facility] Hematocrit Auto (Bld) [Volum e fraction]Ordered By: Armando Miranda on 11-01-2022 Hematocrit (Bld) [Volume fraction] 38.5 % 37-47 [facility] Herpes simplex virus 1+2 DNA detection by probe and target amplification methodOrdered By: Helena Ann on 11-01-2022 HSV 1+2 DNA ANTIONE+probe Ql (Unsp spec) Negative Negative [facility] Influenza virus A and B and SARS-CoV-2 (COVID-19) Ag panel - Upper respiratory specimOrdered By: Armando Miranda on 11-01-2022 SARS-CoV-2 & FLU Antigen (Rapid) Influenzae B [facility] SARS-CoV-2 (COVID-19) RNA ANTIONE+probe Ql (Resp) [facility] Ketones Test strip Ql (U)Ord ered By: Armando Miranda on 11-01-2022 Ketones Ql (U) Negative Negative [facility] Laboratory - Chemistry and C hemistry - challengeOrdered By: Armando Miranda on 11-01-2022 ALP [Catalytic activity/Vol] 97 U/L 45-117 [facility] ALT [Catalytic activity/Vol] 30 U/L 13-56 [facility] CK [Catalytic activity/Vol] 211 U/L 26-192 [facility] CO2 [Moles/Vol] 25.0 mmol/L 21.0-32.0 [facility] Globulin (S) [Mass/Vol] 4.3 g/dL 2.2-4.2 [facility] Lipase [Catalytic activity/Vol] 21 U/L 13-75 [facility] Comment on above: Please note:LIPASE r evised reference range effective 22. New Lipase methodology. Expected to produce lower values than the previous assay method. NEW Reference Range: 13 - 75 U/L Urea nitrogen/Creatinine [Mass ratio] 11.4 mg/mg 10-20 [facility] Laboratory - Chemistry and C hemistry - challengeOrdered By: Helena Ann on 11-01-2022 Free T4 [Mass/Vol] 1.18 ng/dL 0.76-1.46 [facility] Laboratory - Drug toxicology Ordered By: Armando Miranda on 11-01-2022 Amphetamines Ql (U) Negative <1000 ng/mL [facility] Benzodiazepines Ql (U) Negative < 200 ng/mL [facility] Cannabinoids Screen Ql (U) Negative < 50 ng/mL [facility] Cocaine Ql (U) Negative < 300 ng/mL [facility] Opiates Ql (U) Negative < 300 ng/mL [facility] Laboratory - Hematology and Cell countsOrdered By: Armando Miranda on 11-01-2022 Erythrocyte distribution width (RBC) [Entitic vol] 52.0 fL 35.1-43.9 [facility] Erythrocyte distribution width (RBC) [Ratio] 14.3 % 11.6-14.6 [facility] Immature granulocytes/100 WBC (Bld) 0.300 % 0.0-0.9 [facility] Comment on above: IG% - Immature Granu locytes (promyelocytes, myelocytes and metamyelocytes) > 1% indicates that a LEFT SHIFT is Present. MCH (RBC) [Entitic mass] 31.5 pg 27.0-32.0 [facility] Nucleated RBC/100 WBC (Bld) [Ratio] 0 % 0-5 [facility] Laboratory - Specimen inform ationOrdered By: Helena Ann on 08-16-2023 Tube number Nom (CSF) [ID] 3 [facility] MCHC Auto (RBC) [Mass/Vol]Or dered By: Armando Miranda on 11-01-2022 MCHC (RBC) [Mass/Vol] 31.7 g/dL 32-36 [facility] Mononuclear cells Auto (Body fld) [#/Vol]Ordered By: Helena Ann on 11-01-2022 Mononuclear cells (Body fld) [#/Vol] 0.000 10*3/uL [facility] Mucus LM Ql (Urine sed)Order ed By: Armando Miranda on 11-01-2022 Mucus Ql (Urine sed) 0 SEEN /hpf [facility] Nitrite Test strip Ql (U)Ord ered By: Armando Miranda on 11-01-2022 Nitrite Ql (U) Negative Negative [facility] No Panel InformationOrdered By: Helena Ann on 11-01-2022 Body Fluid Mononuclear WBCs (%) 0.0 % [facility] Body Fluid Polynuclear WBCs (#) 0.001 10^3/uL [facility] Body Fluid Polynuclear WBCs (%) 100.0 % [facility] CSF RBC 49 /mm-3 None seen [facility] CSF Total Protein 43.0 mg/dL 15.0-45.0 [facility] Herpes Simplex Virus II DNA (PCR) Negative Negative [facility] No Panel InformationOrdered By: Armando Miranda on 11-01-2022 Blood Gas Sample Site L Radial [facility] Blood Gas Specimen Type ART [facility] Blood Gas Total CO2 24 mmol/L [facility] Oxygen Delivery Device Room Air [facility] MDMA (Ecstasy) Screen Positive < 500 ng/mL [facility] Urine Barbiturates Screen Negative < 200 ng/mL [facility] Urine Drug Screen Comment [facility] Comment on above: CONFIRMATORY TESTING FOR [...] Urine Methadone Screen Negative < 300 ng/mL [facility] Estimated Creatinine Clearance Calc 45.70 ml/min [facility] Estimated GFR (MDRD) Amer 81 mL/min >60 [facility] Comment on above: GFR Calc Estimated GFR (MDRD) Non-Af Amer 67 mL/min >60 [facility] Comment on above: Non- GFR Calc Ethyl Alcohol Level < 3.0 mg/dL [facility] Comment on above: The serum:whole bloo d ethanol ratio is approximately 1.14and varies slightly with hematocrit. Medical Alcohol reference interval and critical value innon-tolerant individuals; 50 - 100 Impairment 100 Intoxication 100 - 250 Severe Poisoning 250 - 400 Deep/possible fatal coma Thyroid Stimulating Hormone (TSH) 0.09 uIU/mL 0.358-3.74 [facility] Troponin I High Sensitivity 4 pg/mL 3.0-54.0 [facility] Comment on above: Please Note: New Nu t Units and Gender Specific Reference Ranges. For more information see Policy Stat Procedure [place] High Sensitivity Troponin (TNIH) and attachments. Oxygen (BldA) [Partial press ure]Ordered By: Armando Miranda on 11-01-2022 Oxygen (Bld) [Partial pressure] 86 mmHG 75-100 [facility] Platelets bldOrdered By: Yudith Miranda on 11-01-2022 Platelets (Bld) [#/Vol] 399 10*3/uL 150-450 [facility] Protein Test strip Ql (U)Ord ered By: Armando Miranda on 11-01-2022 Protein Ql (U) Negative Negative [facility] Review by pathologistOrdered By: Helena Ann on 11-01-2022 Pathologist review [place] (Unsp spec) [Interp] Reviewed [facility] Comment on above: Previous reported re sult: May follow Edited by: RGOOD on 11/02/22:1301Negative for malignant cells.Erik Manjarrez D.O. 11/02/22 AMENDED REPORT 11/02/22 1301 PATH REV previously reported as: May follow Serum or plasma albumin roasngela urement (mass/volume)Ordered By: Armando Miranda on 11-01-2022 Albumin [Mass/Vol] 2.6 g/dL 3.2-5.0 [facility] Serum or plasma albumin/glob ulin mass ratioOrdered By: Armando Miranda on 11-01-2022 Albumin/Globulin [Mass ratio] 0.6 {ratio} 0.9-2.4 [facility] Serum or plasma calcium rosangela urement (mass/volume)Ordered By: Armando Miranda on 11-01-2022 Calcium [Mass/Vol] 9.0 mg/dL 8.5-10.1 [facility] Serum or plasma creatinine m easurement (mass/volume)Ordered By: Armando Miranda on 11-01-2022 Creatinine [Mass/Vol] 0.88 mg/dL 0.55-1.02 [facility] Comment on above: The validity of the calculated GFR & GFRAA in patients over 70 years has not been determined. Clinical correlation is essential. Serum or plasma urea nitroge n measurement (mass/volume)Ordered By: Armando Miranda on 11-01-2022 Urea nitrogen [Mass/Vol] 10 mg/dL 7-18 [facility] Squamous epithelial cells de tection in urine sediment by light microscopyOrdered By: Armando Miranda on 11-01-2022 Epithelial cells.squamous LM Ql (Urine sed) 0 SEEN /hpf 5-10 [facility] Thin prep Papanicolaou smear with manual screeningOrdered By: Armando Miranda on 11-01-2022 Thin prep Papanicolaou smear with manual screening 19 U/L 15-37 [facility] Thin prep Papanicolaou smear with manual screening 5 5-15 [facility] Urine blood detectionOrdered By: Armando Miranda on 11-01-2022 RBC Ql (U) Negative Negative [facility] RBC Ql (U) 0 SEEN /hpf 0-5 [facility] Urine clarityOrdered By: Yudith Miranda on 11-01-2022 Clarity (U) Sl. Cloudy Clear [facility] Urine color determinationOrd ered By: Armando Miranda on 11-01-2022 Color (U) Yellow Yellow [facility] Urine glucose detectionOrder ed By: Armando Miranda on 11-01-2022 Glucose Ql (U) Normal mg/dl Normal [facility] Urine leukocyte esterase det ection by dipstickOrdered By: Armando Miranda on 11-01-2022 Leukocyte esterase Test strip Ql (U) Negative Negative [facility] Urine pHOrdered By: Armando ghotra on 11-01-2022 pH (U) 7.0 [pH] 5.0 - 8.0 [facility] Urine phencyclidine (PCP) de tectionOrdered By: Armando Miranda on 11-01-2022 Phencyclidine Ql (U) Negative < 25 ng/mL [facility] Urine sediment bacteria coun t by microscopy (number/high power field)Ordered By: Armando Miranda on 11-01-2022 Bacteria LM.HPF (Urine sed) [#/Area] 0 /[HPF] None Seen [facility] Urine specific gravity measu rementOrdered By: Armando Miranda on 11-01-2022 Specific gravity (U) [Rel density] 1.010 1.002-1.03 0 [facility] Urobilinogen Auto test strip Ql (U)Ordered By: Armando Miranda on 11-01-2022 Urobilinogen Ql (U) Normal mg/dl Normal [facility] pH measurementOrdered By: Patricia Miranda on 11-01-2022 pH (Unsp spec) 7.35 [pH] 7.35-7.45 [facility] Absolute lymphocyte countOrd ered By: Zia Posey on 10-14-2022 Lymphocytes Auto (Unsp spec) [#/Vol] 1.59 10*3/uL 0.83-4.51 [facility] Basophil percentageOrdered B y: Zia Posey on 10-14-2022 Basophils/100 WBC (Bld) 0.5 % 0-1 [facility] Chloride [Moles/Vol] 114 mmol/L 98-107 [facility] Eosinophils/100 WBC (Bld) 0.9 % 0-5 [facility] Glucose [Mass/Vol] 100 mg/dL 74-106 [facility] Comment on above: Fasting Glucose resu lt from 100 to 125 mg/dL suggests IMPAIRED HOMEOSTASIS per A.D.A. criteria. Neutrophils (Bld) [#/Vol] 3.6 10*3/uL 2.0-7.7 [facility] Neutrophils/100 WBC (Bld) 62.2 % 47-70 [facility] Potassium [Moles/Vol] 3.6 mmol/L 3.5-5.1 [facility] Sodium [Moles/Vol] 143 mmol/L 136-145 [facility] WBC (Bld) [#/Vol] 5.7 10*3/uL 4.4-11.0 [facility] Blood erythrocytes count (nu mber/volume)Ordered By: Zia Posey on 10-14-2022 RBC (Bld) [#/Vol] 3.15 10*6/uL 4.2-5.4 [facility] Blood hemoglobin measurement (mass/volume)Ordered By: Zia Posey on 10-14-2022 Hemoglobin (Bld) [Mass/Vol] 10.1 g/dL 12.0-15.0 [facility] Blood lymphocytes/100 leukoc ytesOrdered By: Zia Posey on 10-14-2022 Lymphocytes/100 WBC (Bld) 27.8 % 19-41 [facility] Blood monocytes/100 leukocyt esOrdered By: Zia Posey on 10-14-2022 Monocytes/100 WBC (Bld) 8.4 % 0-10 [facility] Blood platelet mean volumeOr dered By: Zia Posey on 10-14-2022 Platelet mean volume (Bld) [Entitic vol] 10.0 fL 6.2-12.0 [facility] Determination of erythrocyte mean corpuscular volume (MCV)Ordered By: Zia Posey on 10-14-2022 MCV (RBC) [Entitic vol] 97.1 fL 81-99 [facility] Hematocrit Auto (Bld) [Volum e fraction]Ordered By: Zia Posey on 10-14-2022 Hematocrit (Bld) [Volume fraction] 30.6 % 37-47 [facility] Laboratory - Chemistry and C hemistry - challengeOrdered By: Zia Posey on 10-14-2022 Cobalamin (Vitamin B12) [Mass/Vol] 312 pg/mL 211-911 [facility] Free T4 [Mass/Vol] 1.27 ng/dL 0.76-1.46 [facility] CO2 [Moles/Vol] 26.0 mmol/L 21.0-32.0 [facility] Urea nitrogen/Creatinine [Mass ratio] 8.1 mg/mg 10-20 [facility] - Hematology and Cell countsOrdered By: Zia Posey on 10-14-2022 Erythrocyte distribution width (RBC) [Entitic vol] 49.1 fL 35.1-43.9 [facility] Erythrocyte distribution width (RBC) [Ratio] 13.7 % 11.6-14.6 [facility] Immature granulocytes/100 WBC (Bld) 0.200 % 0.0-0.9 [facility] Comment on above: IG% - Immature Granu locytes (promyelocytes, myelocytes and metamyelocytes) > 1% indicates that a LEFT SHIFT is Present. MCH (RBC) [Entitic mass] 32.1 pg 27.0-32.0 [facility] Nucleated RBC/100 WBC (Bld) [Ratio] 0 % 0-5 [facility] MCHC Auto (RBC) [Mass/Vol]Or dered By: Zia Posey on 10-14-2022 MCHC (RBC) [Mass/Vol] 33.0 g/dL 32-36 [facility] No Panel InformationOrdered By: Zia Posey on 10-14-2022 Vitamin D 25-Hydroxy 38.7 ng/mL [facility] Comment on above: Vitamin D 25(OH) Sta tus Range Deficiency <20 ng/mL (50nmol/L) Insufficiency 20 - 30 ng/mL (50 - 75 nmol/L) Sufficiency 30 - 100 ng/mL (75 - 250 nmol/L) Toxicity >100 ng/mL (>250 nmol/L) Estimated Creatinine Clearance Calc 39.90 ml/min [facility] Estimated GFR (MDRD) Amer 99 mL/min >60 [facility] Comment on above: GFR Calc Estimated GFR (MDRD) Non-Af Amer 82 mL/min >60 [facility] Comment on above: Non- GFR Calc Thyroid Stimulating Hormone (TSH) 0.04 uIU/mL 0.358-3.74 [facility] Platelets bldOrdered By: Elinor Posey on 10-14-2022 Platelets (Bld) [#/Vol] 247 10*3/uL 150-450 [facility] Serum or plasma calcium rosangela urement (mass/volume)Ordered By: Zia Posey on 10-14-2022 Calcium [Mass/Vol] 8.4 mg/dL 8.5-10.1 [facility] Serum or plasma creatinine m easurement (mass/volume)Ordered By: Zia Posey on 10-14-2022 Creatinine [Mass/Vol] 0.74 mg/dL 0.55-1.02 [facility] Comment on above: The validity of the calculated GFR & GFRAA in patients over 70 years has not been determined. Clinical correlation is essential. Serum or plasma folate measu rement (mass/volume)Ordered By: Zia Posey on 10-14-2022 Folate [Mass/Vol] 6.90 ng/mL 3.1-55.4 [facility] Serum or plasma urea nitroge n measurement (mass/volume)Ordered By: Zia Posey on 10-14-2022 Urea nitrogen [Mass/Vol] 6 mg/dL 7-18 [facility] Thin prep Papanicolaou smear with manual screeningOrdered By: Zia Posey on 10-14-2022 Thin prep Papanicolaou smear with manual screening 3 5-15 [facility] Absolute lymphocyte countOrd ered By: Sheyla Slade on 10-13-2022 Lymphocytes Auto (Unsp spec) [#/Vol] 1.13 10*3/uL 0.83-4.51 [facility] Basophil percentageOrdered B y: Sheyla Slade on 10-13-2022 Lactate [Moles/Vol] 0.8 mmol/L 0.4-2.0 [facility] Basophils/100 WBC (Bld) 0.2 % 0-1 [facility] Bilirubin [Mass/Vol] 0.30 mg/dL 0.20-1.00 [facility] Comment on above: For patients on eltr ombopag therapy, use of Dimension [place] TBIL is not recommended. Chloride [Moles/Vol] 112 mmol/L 98-107 [facility] Eosinophils/100 WBC (Bld) 0.0 % 0-5 [facility] Glucose [Mass/Vol] 91 mg/dL 74-106 [facility] Neutrophils (Bld) [#/Vol] 7.4 10*3/uL 2.0-7.7 [facility] Neutrophils/100 WBC (Bld) 78.3 % 47-70 [facility] Potassium [Moles/Vol] 3.5 mmol/L 3.5-5.1 [facility] Protein [Mass/Vol] 5.7 g/dL 6.4-8.2 [facility] Sodium [Moles/Vol] 143 mmol/L 136-145 [facility] WBC (Bld) [#/Vol] 9.4 10*3/uL 4.4-11.0 [facility] Basophil percentage 0 SEEN /hpf 0-5 [facility] Basophil percentage < 10.0 umol/L 11-32 [facility] Lactate [Moles/Vol] 2.5 mmol/L 0.4-2.0 [facility] Comment on above: Critical Result(s) C alled at: 14:29:10 10/13/2022 by: Stephanie Loera. Results read back by same. Basophil percentageOrdered B y: Zia Posey on 10-13-2022 Basophil percentage 3.1 mg/dL 2.5-4.9 [facility] Bilirubin Test strip Ql (U)O rdered By: Sheyla Slade on 10-13-2022 Bilirubin Ql (U) Negative Negative [facility] Blood erythrocytes count (nu mber/volume)Ordered By: Sheyla Slade on 10-13-2022 RBC (Bld) [#/Vol] 3.35 10*6/uL 4.2-5.4 [facility] Blood hemoglobin measurement (mass/volume)Ordered By: Sheyla Slade on 10-13-2022 Hemoglobin (Bld) [Mass/Vol] 10.3 g/dL 12.0-15.0 [facility] Blood lymphocytes/100 leukoc ytesOrdered By: Sheyla Slade on 10-13-2022 Lymphocytes/100 WBC (Bld) 12.0 % 19-41 [facility] Blood monocytes/100 leukocyt esOrdered By: Sheyla Slade on 10-13-2022 Monocytes/100 WBC (Bld) 9.2 % 0-10 [facility] Blood platelet mean volumeOr dered By: Sheyla Slade on 10-13-2022 Platelet mean volume (Bld) [Entitic vol] 9.8 fL 6.2-12.0 [facility] Determination of erythrocyte mean corpuscular volume (MCV)Ordered By: Sheyla Slade on 10-13-2022 MCV (RBC) [Entitic vol] 97.0 fL 81-99 [facility] Hematocrit Auto (Bld) [Volum e fraction]Ordered By: Sheyla Slade on 10-13-2022 Hematocrit (Bld) [Volume fraction] 32.5 % 37-47 [facility] Ketones Test strip Ql (U)Ord ered By: Sheyla Slade on 10-13-2022 Ketones Ql (U) Negative Negative [facility] Laboratory - Chemistry and C hemistry - challengeOrdered By: Zia Posey on 10-13-2022 Magnesium [Mass/Vol] 2.2 mg/dL 1.6-2.6 [facility] - Chemistry and C hemistry - challengeOrdered By: Sheyla Slade on 10-13-2022 ALP [Catalytic activity/Vol] 86 U/L 45-117 [facility] ALT [Catalytic activity/Vol] 14 U/L 13-56 [facility] CO2 [Moles/Vol] 25.0 mmol/L 21.0-32.0 [facility] Globulin (S) [Mass/Vol] 3.3 g/dL 2.2-4.2 [facility] Urea nitrogen/Creatinine [Mass ratio] 10.3 mg/mg 10-20 [facility] Free T4 [Mass/Vol] 1.26 ng/dL 0.76-1.46 [facility] Laboratory - Hematology and Cell countsOrdered By: Sheyla Slade on 10-13-2022 Erythrocyte distribution width (RBC) [Entitic vol] 48.4 fL 35.1-43.9 [facility] Erythrocyte distribution width (RBC) [Ratio] 13.5 % 11.6-14.6 [facility] Immature granulocytes/100 WBC (Bld) 0.300 % 0.0-0.9 [facility] Comment on above: IG% - Immature Granu locytes (promyelocytes, myelocytes and metamyelocytes) > 1% indicates that a LEFT SHIFT is Present. MCH (RBC) [Entitic mass] 30.7 pg 27.0-32.0 [facility] Nucleated RBC/100 WBC (Bld) [Ratio] 0 % 0-5 [facility] MCHC Auto (RBC) [Mass/Vol]Or dered By: Sheyla Slade on 10-13-2022 MCHC (RBC) [Mass/Vol] 31.7 g/dL 32-36 [facility] Mucus LM Ql (Urine sed)Order ed By: Sheyla Slade on 10-13-2022 Mucus Ql (Urine sed) 0 SEEN /hpf [facility] Nitrite Test strip Ql (U)Ord ered By: Sheyla Slade on 10-13-2022 Nitrite Ql (U) Negative Negative [facility] No Panel InformationOrdered By: Sheyla Slade on 10-13-2022 Estimated Creatinine Clearance Calc 43.95 ml/min [facility] Estimated GFR (MDRD) Amer 82 mL/min >60 [facility] Comment on above: GFR Calc Estimated GFR (MDRD) Non-Af Amer 68 mL/min >60 [facility] Comment on above: Non- GFR Calc Free Triiodothyronine (T3) pg/dL 2.2 pg/mL 2.18-3.98 [facility] Platelets bldOrdered By: Elodia Slade on 10-13-2022 Platelets (Bld) [#/Vol] 288 10*3/uL 150-450 [facility] Protein Test strip Ql (U)Ord ered By: Sheyla Slade on 10-13-2022 Protein Ql (U) Negative Negative [facility] Serum or plasma albumin rosangela urement (mass/volume)Ordered By: Sheyla Slade on 10-13-2022 Albumin [Mass/Vol] 2.4 g/dL 3.2-5.0 [facility] Serum or plasma albumin/glob ulin mass ratioOrdered By: Sheyla Slade on 10-13-2022 Albumin/Globulin [Mass ratio] 0.7 {ratio} 0.9-2.4 [facility] Serum or plasma calcium rosangela urement (mass/volume)Ordered By: Sheyla Slade on 10-13-2022 Calcium [Mass/Vol] 8.4 mg/dL 8.5-10.1 [facility] Serum or plasma creatinine m easurement (mass/volume)Ordered By: Sheyla Slade on 10-13-2022 Creatinine [Mass/Vol] 0.87 mg/dL 0.55-1.02 [facility] Comment on above: The validity of the calculated GFR & GFRAA in patients over 70 years has not been determined. Clinical correlation is essential. Serum or plasma urea nitroge n measurement (mass/volume)Ordered By: Sheyla Slade on 10-13-2022 Urea nitrogen [Mass/Vol] 9 mg/dL 7-18 [facility] Squamous epithelial cells de tection in urine sediment by light microscopyOrdered By: Sheyla Slade on 10-13-2022 Epithelial cells.squamous LM Ql (Urine sed) 0-5 SEEN /hpf 5-10 [facility] Thin prep Papanicolaou smear with manual screeningOrdered By: Sheyla Slade on 10-13-2022 Thin prep Papanicolaou smear with manual screening 18 U/L 15-37 [facility] Thin prep Papanicolaou smear with manual screening 6 5-15 [facility] Urine blood detectionOrdered By: Sheyla Slade on 10-13-2022 RBC Ql (U) Negative Negative [facility] RBC Ql (U) 0 SEEN /hpf 0-5 [facility] Urine clarityOrdered By: Elodia Slade on 10-13-2022 Clarity (U) Sl. Cloudy Clear [facility] Urine color determinationOrd ered By: Sheyla Slade on 10-13-2022 Color (U) Yellow Yellow [facility] Urine glucose detectionOrder ed By: Sheyla Slade on 10-13-2022 Glucose Ql (U) 50 mg/dl Normal [facility] Urine leukocyte esterase det ection by dipstickOrdered By: Sheyla Slade on 10-13-2022 Leukocyte esterase Test strip Ql (U) Negative Negative [facility] Urine pHOrdered By: Sheyla fink on 10-13-2022 pH (U) 6.0 [pH] 5.0 - 8.0 [facility] Urine sediment bacteria coun t by microscopy (number/high power field)Ordered By: Sheyla Slade on 10-13-2022 Bacteria LM.HPF (Urine sed) [#/Area] 0 /[HPF] None Seen [facility] Urine specific gravity measu rementOrdered By: Sheyla Slade on 10-13-2022 Specific gravity (U) [Rel density] 1.015 1.002-1.03 0 [facility] Urobilinogen Auto test strip Ql (U)Ordered By: Sheyla Slade on 10-13-2022 Urobilinogen Ql (U) Normal mg/dl Normal [facility] Absolute lymphocyte countOrd ered By: Harish Luis on 10-12-2022 Lymphocytes Auto (Unsp spec) [#/Vol] 1.77 10*3/uL 0.83-4.51 [facility] Basophil percentageOrdered B y: Harish Luis on 10-12-2022 Basophils/100 WBC (Bld) 0.8 % 0-1 [facility] Bilirubin [Mass/Vol] 0.50 mg/dL 0.20-1.00 [facility] Comment on above: For patients on eltr ombopag therapy, use of Dimension [place] TBIL is not recommended. Chloride [Moles/Vol] 108 mmol/L 98-107 [facility] Eosinophils/100 WBC (Bld) 1.5 % 0-5 [facility] Glucose [Mass/Vol] 116 mg/dL 74-106 [facility] Comment on above: Fasting Glucose resu lt from 100 to 125 mg/dL suggests IMPAIRED HOMEOSTASIS per A.D.A. criteria. Neutrophils (Bld) [#/Vol] 4.6 10*3/uL 2.0-7.7 [facility] Neutrophils/100 WBC (Bld) 63.9 % 47-70 [facility] Potassium [Moles/Vol] 3.6 mmol/L 3.5-5.1 [facility] Protein [Mass/Vol] 6.9 g/dL 6.4-8.2 [facility] Sodium [Moles/Vol] 142 mmol/L 136-145 [facility] WBC (Bld) [#/Vol] 7.2 10*3/uL 4.4-11.0 [facility] Blood erythrocytes count (nu mber/volume)Ordered By: Harish Luis on 10-12-2022 RBC (Bld) [#/Vol] 4.18 10*6/uL 4.2-5.4 [facility] Blood hemoglobin measurement (mass/volume)Ordered By: Harish Luis on 10-12-2022 Hemoglobin (Bld) [Mass/Vol] 13.2 g/dL 12.0-15.0 [facility] Blood lymphocytes/100 leukoc ytesOrdered By: Harish Luis on 10-12-2022 Lymphocytes/100 WBC (Bld) 24.4 % 19-41 [facility] Blood monocytes/100 leukocyt esOrdered By: Harish Luis on 10-12-2022 Monocytes/100 WBC (Bld) 9.0 % 0-10 [facility] Blood platelet mean volumeOr dered By: Harish Luis on 10-12-2022 Platelet mean volume (Bld) [Entitic vol] 10.2 fL 6.2-12.0 [facility] Determination of erythrocyte mean corpuscular volume (MCV)Ordered By: Harish Luis on 10-12-2022 MCV (RBC) [Entitic vol] 95.9 fL 81-99 [facility] Hematocrit Auto (Bld) [Volum e fraction]Ordered By: Harish Luis 10-12-2022 Hematocrit (Bld) [Volume fraction] 40.1 % 37-47 [facility] Laboratory - Chemistry and C hemistry - challengeOrdered By: Harish Luis on 10-12-2022 ALP [Catalytic activity/Vol] 115 U/L 45-117 [facility] ALT [Catalytic activity/Vol] 17 U/L 13-56 [facility] CO2 [Moles/Vol] 28.0 mmol/L 21.0-32.0 [facility] Globulin (S) [Mass/Vol] 3.9 g/dL 2.2-4.2 [facility] Urea nitrogen/Creatinine [Mass ratio] 6.7 mg/mg 10-20 [facility] Laboratory - Hematology and Cell countsOrdered By: Harish Luis on 10-12-2022 Erythrocyte distribution width (RBC) [Entitic vol] 48.3 fL 35.1-43.9 [facility] Erythrocyte distribution width (RBC) [Ratio] 13.5 % 11.6-14.6 [facility] Immature granulocytes/100 WBC (Bld) 0.400 % 0.0-0.9 [facility] Comment on above: IG% - Immature Granu locytes (promyelocytes, myelocytes and metamyelocytes) > 1% indicates that a LEFT SHIFT is Present. MCH (RBC) [Entitic mass] 31.6 pg 27.0-32.0 [facility] Nucleated RBC/100 WBC (Bld) [Ratio] 0 % 0-5 [facility] MCHC Auto (RBC) [Mass/Vol]Or dered By: Harish Luis on 10-12-2022 MCHC (RBC) [Mass/Vol] 32.9 g/dL 32-36 [facility] No Panel InformationOrdered By: Harish Luis on 10-12-2022 Estimated GFR (MDRD) Amer 66 mL/min >60 [facility] Comment on above: GFR Calc Estimated GFR (MDRD) Non-Af Amer 55 mL/min >60 [facility] Comment on above: Non- GFR Calc Thyroid Stimulating Hormone (TSH) 0.05 uIU/mL 0.358-3.74 [facility] Platelets bldOrdered By: Harish Luis on 10-12-2022 Platelets (Bld) [#/Vol] 341 10*3/uL 150-450 [facility] Serum or plasma albumin rosangela urement (mass/volume)Ordered By: Harish Luis 10-12-2022 Albumin [Mass/Vol] 3.0 g/dL 3.2-5.0 [facility] Serum or plasma albumin/glob ulin mass ratioOrdered By: Harish Luis 10-12-2022 Albumin/Globulin [Mass ratio] 0.8 {ratio} 0.9-2.4 [facility] Serum or plasma calcium rosangela urement (mass/volume)Ordered By: Harish Luis on 10-12-2022 Calcium [Mass/Vol] 9.1 mg/dL 8.5-10.1 [facility] Serum or plasma creatinine m easurement (mass/volume)Ordered By: Harish Luis on 10-12-2022 Creatinine [Mass/Vol] 1.05 mg/dL 0.55-1.02 [facility] Comment on above: The validity of the calculated GFR & GFRAA in patients over 70 years has not been determined. Clinical correlation is essential. Serum or plasma urea nitroge n measurement (mass/volume)Ordered By: Harish Luis on 10-12-2022 Urea nitrogen [Mass/Vol] 7 mg/dL 10-03 [facility] Thin prep Papanicolaou smear with manual screeningOrdered By: Harish Luis on 10-12-2022 Thin prep Papanicolaou smear with manual screening 22 U/L [facility] Thin prep Papanicolaou smear with manual screening 6 5-15 [facility] Basophil percentageOrdered B y: Sondra Rooney on 08-03-2022 Cholesterol [Mass/Vol] 176 mg/dL <200 [facility] Comment on above: <200 mg/dL Desirable 200-240 mg/dL Borderline >240 mg/dL High Risk Triglyceride [Mass/Vol] 79 mg/dL <199 [facility] Comment on above: The drugs N-Acetylcy steine and Metamizole may falsely depress this assay.Serum Triglycerides Reference Interval Normal <150 mg/dL Borderline high 150 - 199 mg/dL High 200 - 499 mg/dL Very High > or = 500 mg/dL Serum or plasma cholesterol in HDL measurement (mass/volume)Ordered By: Sondra Rooney on 08-03-2022 Cholesterol in HDL [Mass/Vol] 52 mg/dL >40 [facility] Comment on above: The drugs N-Acetylcy steine and Metamizole may falsely depress this assay. Reference Range HDL <40 mg/dL Low HDL Cholesterol HDL >or= 60 mg/dL High HDL Cholesterol Serum or plasma cholesterol in VLDL measurement (mass/volume)Ordered By: Sondra Rooney on 08-03-2022 Cholesterol in VLDL [Mass/Vol] 16 mg/dL 5-40 [facility] Serum or plasma low density lipoprotein (LDL) cholesterol measurement (mass/volume)Ordered By: Sondra Rooney on 08-03-2022 Cholesterol in LDL [Mass/Vol] 108 mg/dL 0-130 [facility] Glucose Glucometer (BldC) [M ass/Vol]Ordered By: Doni Hanson on 08-02-2022 Glucose [Mass/Vol] 109 mg/dL 74-106 [facility] Comment on above: MANAGEMENT OF PATIEN T CARE PER NURSING PROTOCOL Absolute lymphocyte countOrd ered By: Rafita Siddiqui on 07-30-2022 Lymphocytes Auto (Unsp spec) [#/Vol] 1.32 10*3/uL 0.83-4.51 [facility] Basophil percentageOrdered B y: Rafita Siddiqui on 07-30-2022 Basophils/100 WBC (Bld) 0.4 % 0-1 [facility] Chloride [Moles/Vol] 108 mmol/L 98-107 [facility] Eosinophils/100 WBC (Bld) 2.1 % 0-5 [facility] Glucose [Mass/Vol] 100 mg/dL 74-106 [facility] Comment on above: Fasting Glucose resu lt from 100 to 125 mg/dL suggests IMPAIRED HOMEOSTASIS per A.D.A. criteria. Neutrophils (Bld) [#/Vol] 5.0 10*3/uL 2.0-7.7 [facility] Neutrophils/100 WBC (Bld) 70.5 % 47-70 [facility] Potassium [Moles/Vol] 3.9 mmol/L 3.5-5.1 [facility] Sodium [Moles/Vol] 137 mmol/L 136-145 [facility] WBC (Bld) [#/Vol] 7.1 10*3/uL 4.4-11.0 [facility] Blood erythrocytes count (nu mber/volume)Ordered By: Rafita Siddiqui on 07-30-2022 RBC (Bld) [#/Vol] 3.34 10*6/uL 4.2-5.4 [facility] Blood hemoglobin measurement (mass/volume)Ordered By: Rafita Siddiqui on 07-30-2022 Hemoglobin (Bld) [Mass/Vol] 10.4 g/dL 12.0-15.0 [facility] Blood lymphocytes/100 leukoc ytesOrdered By: Rafita Siddiqui on 07-30-2022 Lymphocytes/100 WBC (Bld) 18.5 % 19-41 [facility] Blood monocytes/100 leukocyt esOrdered By: Rafita Siddiqui on 07-30-2022 Monocytes/100 WBC (Bld) 8.1 % 0-10 [facility] Blood platelet mean volumeOr dered By: Rafita Siddiqui on 07-30-2022 Platelet mean volume (Bld) [Entitic vol] 10.3 fL 6.2-12.0 [facility] Determination of erythrocyte mean corpuscular volume (MCV)Ordered By: Rafita Siddiqui on 07-30-2022 MCV (RBC) [Entitic vol] 97.9 fL 81-99 [facility] Hematocrit Auto (Bld) [Volum e fraction]Ordered By: Rafita Siddiqui on 07-30-2022 Hematocrit (Bld) [Volume fraction] 32.7 % 37-47 [facility] Laboratory - Chemistry and C hemistry - challengeOrdered By: Rafita Siddiqui on 07-30-2022 CO2 [Moles/Vol] 23.0 mmol/L 21.0-32.0 [facility] Urea nitrogen/Creatinine [Mass ratio] 13.9 mg/mg 10-20 [facility] Laboratory - Hematology and Cell countsOrdered By: Rafita Siddiqui on 07-30-2022 Erythrocyte distribution width (RBC) [Entitic vol] 52.1 fL 35.1-43.9 [facility] Erythrocyte distribution width (RBC) [Ratio] 14.5 % 11.6-14.6 [facility] Immature granulocytes/100 WBC (Bld) 0.400 % 0.0-0.9 [facility] Comment on above: IG% - Immature Granu locytes (promyelocytes, myelocytes and metamyelocytes) > 1% indicates that a LEFT SHIFT is Present. MCH (RBC) [Entitic mass] 31.1 pg 27.0-32.0 [facility] Nucleated RBC/100 WBC (Bld) [Ratio] 0 % 0-5 [facility] MCHC Auto (RBC) [Mass/Vol]Or dered By: Rafita Siddiqui on 07-30-2022 MCHC (RBC) [Mass/Vol] 31.8 g/dL 32-36 [facility] No Panel InformationOrdered By: Rafita Siddiqui on 07-30-2022 Streptococcus pneumoniae Antigen (M [facility] Estimated Creatinine Clearance Calc 41.65 ml/min [facility] Estimated GFR (MDRD) Amer 69 mL/min >60 [facility] Comment on above: GFR Calc Estimated GFR (MDRD) Non-Af Amer 57 mL/min >60 [facility] Comment on above: Non- GFR Calc Platelets bldOrdered By: Pina Siddiqui on 07-30-2022 Platelets (Bld) [#/Vol] 286 10*3/uL 150-450 [facility] Serum or plasma calcium rosangela urement (mass/volume)Ordered By: Rafita Siddiqui on 07-30-2022 Calcium [Mass/Vol] 8.4 mg/dL 8.5-10.1 [facility] Serum or plasma creatinine m easurement (mass/volume)Ordered By: Rafita Siddiqui on 07-30-2022 Creatinine [Mass/Vol] 1.01 mg/dL 0.55-1.02 [facility] Comment on above: The validity of the calculated GFR & GFRAA in patients over 70 years has not been determined. Clinical correlation is essential. Serum or plasma urea nitroge n measurement (mass/volume)Ordered By: Rafita Siddiqui on 07-30-2022 Urea nitrogen [Mass/Vol] 14 mg/dL 7-18 [facility] Thin prep Papanicolaou smear with manual screeningOrdered By: Rafita Siddiqui on 07-30-2022 Thin prep Papanicolaou smear with manual screening 6 5-15 [facility] Absolute lymphocyte countOrd ered By: Dr. Rosales on 07-29-2022 Lymphocytes Auto (Unsp spec) [#/Vol] 0.73 10*3/uL 0.83-4.51 [facility] Basophil percentageOrdered B y: Dr. Rosales on 07-29-2022 Lactate [Moles/Vol] 1.7 mmol/L 0.4-2.0 [facility] Basophils/100 WBC (Bld) 0.7 % 0-1 [facility] Chloride [Moles/Vol] 110 mmol/L 98-107 [facility] Eosinophils/100 WBC (Bld) 2.2 % 0-5 [facility] Glucose [Mass/Vol] 123 mg/dL 74-106 [facility] Comment on above: Fasting Glucose resu lt from 100 to 125 mg/dL suggests IMPAIRED HOMEOSTASIS per A.D.A. criteria. Neutrophils (Bld) [#/Vol] 6.7 10*3/uL 2.0-7.7 [facility] Neutrophils/100 WBC (Bld) 81.7 % 47-70 [facility] Potassium [Moles/Vol] 3.9 mmol/L 3.5-5.1 [facility] Sodium [Moles/Vol] 142 mmol/L 136-145 [facility] WBC (Bld) [#/Vol] 8.2 10*3/uL 4.4-11.0 [facility] Blood erythrocytes count (nu mber/volume)Ordered By: Dr. Rosales on 07-29-2022 RBC (Bld) [#/Vol] 3.91 10*6/uL 4.2-5.4 [facility] Blood hemoglobin measurement (mass/volume)Ordered By: Dr. Rosales on 07-29-2022 Hemoglobin (Bld) [Mass/Vol] 12.0 g/dL 12.0-15.0 [facility] Blood lymphocytes/100 leukoc ytesOrdered By: Dr. Rosales on 07-29-2022 Lymphocytes/100 WBC (Bld) 8.9 % 19-41 [facility] Blood monocytes/100 leukocyt esOrdered By: Dr. Rosales on 07-29-2022 Monocytes/100 WBC (Bld) 6.3 % 0-10 [facility] Blood platelet mean volumeOr dered By: Dr. Rosales on 07-29-2022 Platelet mean volume (Bld) [Entitic vol] 10.5 fL 6.2-12.0 [facility] Determination of erythrocyte mean corpuscular volume (MCV)Ordered By: Dr. Rosales on 07-29-2022 MCV (RBC) [Entitic vol] 99.0 fL 81-99 [facility] Hematocrit Auto (Bld) [Volum e fraction]Ordered By: Dr. Rosales on 07-29-2022 Hematocrit (Bld) [Volume fraction] 38.7 % 37-47 [facility] Influenza virus A and B and SARS-CoV-2 (COVID-19) Ag panel - Upper respiratory specimOrdered By: Dimitry Rosales on 07-29-2022 SARS-CoV-2 & FLU Antigen (Rapid) Influenzae B [facility] Influenza virus A and B and SARS-CoV-2 (COVID-19) Ag panel - Upper respiratory specimOrdered By: Dr. Rosales on 07-29-2022 SARS-CoV-2 & FLU Antigen (Rapid) Influenzae B [facility] Laboratory - Chemistry and C hemistry - challengeOrdered By: Dr. Rosales on 07-29-2022 CO2 [Moles/Vol] 27.0 mmol/L 21.0-32.0 [facility] Natriuretic peptide B (Bld) [Mass/Vol] 36.5 pg/mL 0-100 [facility] Urea nitrogen/Creatinine [Mass ratio] 13.0 mg/mg 10-20 [facility] - Hematology and Cell countsOrdered By: Dr. Rosales on 07-29-2022 Erythrocyte distribution width (RBC) [Entitic vol] 52.6 fL 35.1-43.9 [facility] Erythrocyte distribution width (RBC) [Ratio] 14.6 % 11.6-14.6 [facility] Immature granulocytes/100 WBC (Bld) 0.200 % 0.0-0.9 [facility] Comment on above: IG% - Immature Granu locytes (promyelocytes, myelocytes and metamyelocytes) > 1% indicates that a LEFT SHIFT is Present. MCH (RBC) [Entitic mass] 30.7 pg 27.0-32.0 [facility] Nucleated RBC/100 WBC (Bld) [Ratio] 0 % 0-5 [facility] Laboratory - Microbiology an d Antimicrobial susceptibilityOrdered By: Dimitry Rosales on 07-29-2022 Bacteria identified Cx Nom (Bld) No growth in 5 days. [facility] MCHC Auto (RBC) [Mass/Vol]Or dered By: Dr. Rosales on 07-29-2022 MCHC (RBC) [Mass/Vol] 31.0 g/dL 32-36 [facility] No Panel InformationOrdered By: Dr. Rosales on 07-29-2022 D-Dimer Quantitative (PE/DVT) 0.62 FEU/ug/m 0.27-0.49 [facility] Comment on above: D-Dimer ELEVATED (>0 .49): Additional studies and clinicalassessments are indicated to conclude diagnosis of:Deep Vein Thrombosis (DVT) or Pulmonary Embolism (PE)CRITICAL VALUE VERIFIED. CALLED TO KADEEM [id number] Andressa Germain.RESULTS READ BACK BY SAME . Estimated Creatinine Clearance Calc 38.95 ml/min [facility] Estimated GFR (MDRD) Amer 64 mL/min >60 [facility] Comment on above: GFR Calc Estimated GFR (MDRD) Non-Af Amer 53 mL/min >60 [facility] Comment on above: Non- GFR Calc Troponin I High Sensitivity 3 pg/mL 3.0-54.0 [facility] Comment on above: Please Note: New Nu t Units and Gender Specific Reference Ranges. For more information see Policy Stat Procedure [place] High Sensitivity Troponin (TNIH) and attachments. Platelets bldOrdered By: Dr. Rosales on 07-29-2022 Platelets (Bld) [#/Vol] 296 10*3/uL 150-450 [facility] Serum or plasma calcium rosangela urement (mass/volume)Ordered By: Dr. Rosales on 07-29-2022 Calcium [Mass/Vol] 8.7 mg/dL 8.5-10.1 [facility] Serum or plasma creatinine m easurement (mass/volume)Ordered By: Dr. Rosales on 07-29-2022 Creatinine [Mass/Vol] 1.08 mg/dL 0.55-1.02 [facility] Comment on above: The validity of the calculated GFR & GFRAA in patients over 70 years has not been determined. Clinical correlation is essential. Serum or plasma urea nitroge n measurement (mass/volume)Ordered By: Dr. Rosales on 07-29-2022 Urea nitrogen [Mass/Vol] 14 mg/dL 7-18 [facility] Thin prep Papanicolaou smear with manual screeningOrdered By: Dr. Rosales on 07-29-2022 Thin prep Papanicolaou smear with manual screening 5 5-15 [facility] Absolute lymphocyte countOrd ered By: Dr. Luis on 07-06-2022 Lymphocytes Auto (Unsp spec) [#/Vol] 1.65 10*3/uL 0.83-4.51 [facility] Basophil percentageOrdered B y: Dr. Luis on 07-06-2022 Basophils/100 WBC (Bld) 1.1 % 0-1 [facility] Bilirubin [Mass/Vol] 0.30 mg/dL 0.20-1.00 [facility] Comment on above: For patients on eltr ombopag therapy, use of Dimension [place] TBIL is not recommended. Chloride [Moles/Vol] 112 mmol/L 98-107 [facility] Eosinophils/100 WBC (Bld) 2.8 % 0-5 [facility] Glucose [Mass/Vol] 97 mg/dL 74-106 [facility] Neutrophils (Bld) [#/Vol] 2.3 10*3/uL 2.0-7.7 [facility] Neutrophils/100 WBC (Bld) 50.8 % 47-70 [facility] Potassium [Moles/Vol] 3.8 mmol/L 3.5-5.1 [facility] Protein [Mass/Vol] 7.1 g/dL 6.4-8.2 [facility] Sodium [Moles/Vol] 141 mmol/L 136-145 [facility] WBC (Bld) [#/Vol] 4.6 10*3/uL 4.4-11.0 [facility] Blood erythrocytes count (nu mber/volume)Ordered By: Dr. Luis on 07-06-2022 RBC (Bld) [#/Vol] 4.35 10*6/uL 4.2-5.4 [facility] Blood hemoglobin measurement (mass/volume)Ordered By: Dr. Luis on 07-06-2022 Hemoglobin (Bld) [Mass/Vol] 13.3 g/dL 12.0-15.0 [facility] Blood lymphocytes/100 leukoc ytesOrdered By: Dr. Luis on 07-06-2022 Lymphocytes/100 WBC (Bld) 35.8 % 19-41 [facility] Blood monocytes/100 leukocyt esOrdered By: Dr. Luis on 07-06-2022 Monocytes/100 WBC (Bld) 9.3 % 0-10 [facility] Blood platelet mean volumeOr dered By: Dr. Luis on 07-06-2022 Platelet mean volume (Bld) [Entitic vol] 9.7 fL 6.2-12.0 [facility] Determination of erythrocyte mean corpuscular volume (MCV)Ordered By: Dr. Luis on 07-06-2022 MCV (RBC) [Entitic vol] 98.4 fL 81-99 [facility] Hematocrit Auto (Bld) [Volum e fraction]Ordered By: Dr. Luis on 07-06-2022 Hematocrit (Bld) [Volume fraction] 42.8 % 37-47 [facility] Laboratory - Chemistry and C hemistry - challengeOrdered By: Dr. Luis on 07-06-2022 ALP [Catalytic activity/Vol] 102 U/L 45-117 [facility] ALT [Catalytic activity/Vol] 17 U/L 13-56 [facility] CO2 [Moles/Vol] 27.0 mmol/L 21.0-32.0 [facility] Globulin (S) [Mass/Vol] 4.0 g/dL 2.2-4.2 [facility] Urea nitrogen/Creatinine [Mass ratio] 8.6 mg/mg 10-20 [facility] Laboratory - Hematology and Cell countsOrdered By: Dr. Luis on 07-06-2022 Erythrocyte distribution width (RBC) [Entitic vol] 50.4 fL 35.1-43.9 [facility] Erythrocyte distribution width (RBC) [Ratio] 13.9 % 11.6-14.6 [facility] Immature granulocytes/100 WBC (Bld) 0.200 % 0.0-0.9 [facility] Comment on above: IG% - Immature Granu locytes (promyelocytes, myelocytes and metamyelocytes) > 1% indicates that a LEFT SHIFT is Present. MCH (RBC) [Entitic mass] 30.6 pg 27.0-32.0 [facility] Nucleated RBC/100 WBC (Bld) [Ratio] 0 % 0-5 [facility] MCHC Auto (RBC) [Mass/Vol]Or dered By: Dr. Luis on 07-06-2022 MCHC (RBC) [Mass/Vol] 31.1 g/dL 32-36 [facility] No Panel InformationOrdered By: Dr. Luis on 07-06-2022 Estimated GFR (MDRD) Amer 76 mL/min >60 [facility] Comment on above: GFR Calc Estimated GFR (MDRD) Non-Af Amer 63 mL/min >60 [facility] Comment on above: Non- GFR Calc Thyroid Stimulating Hormone (TSH) 0.47 uIU/mL 0.358-3.74 [facility] Vitamin D 25-Hydroxy 32.0 ng/mL [facility] Comment on above: Vitamin D 25(OH) Sta tus Range Deficiency <20 ng/mL (50nmol/L) Insufficiency 20 - 30 ng/mL (50 - 75 nmol/L) Sufficiency 30 - 100 ng/mL (75 - 250 nmol/L) Toxicity >100 ng/mL (>250 nmol/L) Platelets bldOrdered By: Dr. Luis on 07-06-2022 Platelets (Bld) [#/Vol] 351 10*3/uL 150-450 [facility] Serum or plasma albumin rosangela urement (mass/volume)Ordered By: Dr. Luis on 07-06-2022 Albumin [Mass/Vol] 3.1 g/dL 3.2-5.0 [facility] Serum or plasma albumin/glob ulin mass ratioOrdered By: Dr. Luis on 07-06-2022 Albumin/Globulin [Mass ratio] 0.8 {ratio} 0.9-2.4 [facility] Serum or plasma calcium rosangela urement (mass/volume)Ordered By: Dr. Luis on 07-06-2022 Calcium [Mass/Vol] 8.9 mg/dL 8.5-10.1 [facility] Serum or plasma creatinine m easurement (mass/volume)Ordered By: Dr. Luis on 07-06-2022 Creatinine [Mass/Vol] 0.94 mg/dL 0.55-1.02 [facility] Comment on above: The validity of the calculated GFR & GFRAA in patients over 70 years has not been determined. Clinical correlation is essential. Serum or plasma urea nitroge n measurement (mass/volume)Ordered By: Dr. Luis on 07-06-2022 Urea nitrogen [Mass/Vol] 8 mg/dL 7-18 [facility] Thin prep Papanicolaou smear with manual screeningOrdered By: Dr. Luis on 07-06-2022 Thin prep Papanicolaou smear with manual screening 17 U/L 15-37 [facility] Thin prep Papanicolaou smear with manual screening 2 5-15 [facility] COVID-19 virus antigen assay Ordered By: Dr. Luis on 06-28-2022 SARS-CoV-2 (COVID-19) Ag IA.rapid Ql (Resp) Not detected Not Detect [facility] Comment on above: Normal Reference Ran ge: Not DetectedMethod:(RT-PCR) real-time reverse transcriptase PCRLuminex BRADY Instrument*The Food and Drug Administration (FDA) has issued an Emergency Use Authorization (EAU) for the [employer] SARS-CoV-2 Assay for the rapid detection of [...] 06-28-2022 Influenza Types A,B Direct FA (STEPHANIE) [facility] No Panel InformationOrdered By: Dr. Luis on 06-28-2022 Influenza Types A,B Direct FA (STEPHANIE) [facility] RSV Ag EIAOrdered By: Harish neal on 06-28-2022 RSV Ag Immune stain Ql (Tiss) [facility] RSV Ag EIAOrdered By: Dr. Desiree neal on 06-28-2022 RSV Ag Immune stain Ql (Tiss) [facility] Basophil percentageOrdered B y: Dr. Manley on 04-24-2022 Chloride [Moles/Vol] 113 mmol/L 98-107 [facility] Glucose [Mass/Vol] 100 mg/dL 74-106 [facility] Comment on above: Fasting Glucose resu lt from 100 to 125 mg/dL suggests IMPAIRED HOMEOSTASIS per A.D.A. criteria. Potassium [Moles/Vol] 3.8 mmol/L 3.5-5.1 [facility] Sodium [Moles/Vol] 143 mmol/L 136-145 [facility] WBC (Bld) [#/Vol] 4.4 10*3/uL 4.4-11.0 [facility] Blood erythrocytes count (nu mber/volume)Ordered By: Dr. Manley on 04-24-2022 RBC (Bld) [#/Vol] 3.86 10*6/uL 4.2-5.4 [facility] Blood hemoglobin measurement (mass/volume)Ordered By: Dr. Manley on 04-24-2022 Hemoglobin (Bld) [Mass/Vol] 12.0 g/dL 12.0-15.0 [facility] Blood platelet mean volumeOr dered By: Dr. Manley on 04-24-2022 Platelet mean volume (Bld) [Entitic vol] 9.6 fL 6.2-12.0 [facility] Determination of erythrocyte mean corpuscular volume (MCV)Ordered By: Dr. Manley on 04-24-2022 MCV (RBC) [Entitic vol] 100.0 fL 81-99 [facility] Hematocrit Auto (Bld) [Volum e fraction]Ordered By: Dr. Manley on 04-24-2022 Hematocrit (Bld) [Volume fraction] 38.6 % 37-47 [facility] INR in Blood by Coagulation assayOrdered By: Dr. Manley on 04-24-2022 INR Coag (Bld) [Relative time] 1.0 {INR} [facility] Laboratory - Chemistry and C hemistry - challengeOrdered By: Dr. Manley on 04-24-2022 CO2 [Moles/Vol] 25.0 mmol/L 21.0-32.0 [facility] Urea nitrogen/Creatinine [Mass ratio] 9.7 mg/mg 10-20 [facility] Laboratory - CoagulationOrde red By: Dr. Manley on 04-24-2022 aPTT Coag (Bld) [Time] 33.1 s 24.1-36.2 [facility] PT Coag (PPP) [Time] 12.8 s 11.7-14.9 [facility] Laboratory - Hematology and Cell countsOrdered By: Dr. Manley on 04-24-2022 Erythrocyte distribution width (RBC) [Entitic vol] 53.3 fL 35.1-43.9 [facility] Erythrocyte distribution width (RBC) [Ratio] 14.3 % 11.6-14.6 [facility] MCH (RBC) [Entitic mass] 31.1 pg 27.0-32.0 [facility] MCHC Auto (RBC) [Mass/Vol]Or dered By: Dr. Manley on 04-24-2022 MCHC (RBC) [Mass/Vol] 31.1 g/dL 32-36 [facility] No Panel InformationOrdered By: Dr. Manley on 04-24-2022 Estimated GFR (MDRD) Amer 77 mL/min >60 [facility] Comment on above: GFR Calc Estimated GFR (MDRD) Non-Af Amer 63 mL/min >60 [facility] Comment on above: Non- GFR Calc Platelets bldOrdered By: Dr. Manley on 04-24-2022 Platelets (Bld) [#/Vol] 408 10*3/uL 150-450 [facility] Serum or plasma calcium rosangela urement (mass/volume)Ordered By: Dr. Manley on 04-24-2022 Calcium [Mass/Vol] 8.8 mg/dL 8.5-10.1 [facility] Serum or plasma creatinine m easurement (mass/volume)Ordered By: Dr. Manley on 04-24-2022 Creatinine [Mass/Vol] 0.93 mg/dL 0.55-1.02 [facility] Comment on above: The validity of the calculated GFR & GFRAA in patients over 70 years has not been determined. Clinical correlation is essential. Serum or plasma urea nitroge n measurement (mass/volume)Ordered By: Dr. Manley on 04-24-2022 Urea nitrogen [Mass/Vol] 9 mg/dL 7-18 [facility] Thin prep Papanicolaou smear with manual screeningOrdered By: Dr. Manley on 04-24-2022 Thin prep Papanicolaou smear with manual screening 5 5-15 [facility] Laboratory - Microbiology an d Antimicrobial susceptibilityOrdered By: Dr. Luis on 04-10-2022 SARS-CoV-2 (COVID-19) RNA ANTIONE+probe Ql (Unsp spec) Not detected Not Detect [facility] Comment on above: Normal Reference Ran [...] 04-10-2022 Influenza Types A,B Direct FA (STEPHANIE) [facility] RSV Ag EIAOrdered By: Dr. Desiree neal on 04-10-2022 RSV Ag Immune stain Ql (Tiss) [facility] Laboratory - Microbiology an d Antimicrobial susceptibilityOrdered By: Dr. Luis on 03-31-2022 SARS-CoV-2 (COVID-19) RNA ANTIONE+probe Ql (Unsp spec) Not detected Not Detect [facility] Comment on above: Normal Reference Ran [...] 03-31-2022 Influenza Types A,B Direct FA (STEPHANIE) [facility] RSV Ag EIAOrdered By: Dr. Desiree neal on 03-31-2022 RSV Ag Immune stain Ql (Tiss) [facility] Absolute lymphocyte countOrd ered By: Dr. Luis on 12-28-2021 Lymphocytes Auto (Unsp spec) [#/Vol] 1.82 10*3/uL 0.83-4.51 [facility] Basophil percentageOrdered B y: Dr. Luis on 12-28-2021 Basophils/100 WBC (Bld) 1.0 % 0-1 [facility] Bilirubin [Mass/Vol] 0.50 mg/dL 0.20-1.00 [facility] Comment on above: For patients on eltr ombopag therapy, use of Dimension [place] TBIL is not recommended. Chloride [Moles/Vol] 112 mmol/L 98-107 [facility] Eosinophils/100 WBC (Bld) 1.7 % 0-5 [facility] Glucose [Mass/Vol] 97 mg/dL 74-106 [facility] Neutrophils (Bld) [#/Vol] 1.7 10*3/uL 2.0-7.7 [facility] Neutrophils/100 WBC (Bld) 43.2 % 47-70 [facility] Potassium [Moles/Vol] 3.7 mmol/L 3.5-5.1 [facility] Protein [Mass/Vol] 6.2 g/dL 6.4-8.2 [facility] Sodium [Moles/Vol] 141 mmol/L 136-145 [facility] WBC (Bld) [#/Vol] 4.0 10*3/uL 4.4-11.0 [facility] Blood erythrocytes count (nu mber/volume)Ordered By: Dr. Luis on 12-28-2021 RBC (Bld) [#/Vol] 3.56 10*6/uL 4.2-5.4 [facility] Blood hemoglobin measurement (mass/volume)Ordered By: Dr. Luis on 12-28-2021 Hemoglobin (Bld) [Mass/Vol] 11.2 g/dL 12.0-15.0 [facility] Blood lymphocytes/100 leukoc ytesOrdered By: Dr. Luis on 12-28-2021 Lymphocytes/100 WBC (Bld) 45.2 % 19-41 [facility] Blood monocytes/100 leukocyt esOrdered By: Dr. Luis on 12-28-2021 Monocytes/100 WBC (Bld) 8.7 % 0-10 [facility] Blood platelet mean volumeOr dered By: Dr. Luis on 12-28-2021 Platelet mean volume (Bld) [Entitic vol] 11.1 fL 6.2-12.0 [facility] Determination of erythrocyte mean corpuscular volume (MCV)Ordered By: Dr. Luis on 12-28-2021 MCV (RBC) [Entitic vol] 96.1 fL 81-99 [facility] Hematocrit Auto (Bld) [Volum e fraction]Ordered By: Dr. Luis on 12-28-2021 Hematocrit (Bld) [Volume fraction] 34.2 % 37-47 [facility] Laboratory - Chemistry and C hemistry - challengeOrdered By: Dr. Luis on 12-28-2021 ALP [Catalytic activity/Vol] 68 U/L 45-117 [facility] ALT [Catalytic activity/Vol] 14 U/L 13-56 [facility] CO2 [Moles/Vol] 25.0 mmol/L 21.0-32.0 [facility] Globulin (S) [Mass/Vol] 3.0 g/dL 2.2-4.2 [facility] Urea nitrogen/Creatinine [Mass ratio] 8.5 mg/mg 10-20 [facility] Laboratory - Hematology and Cell countsOrdered By: Dr. Luis on 12-28-2021 Erythrocyte distribution width (RBC) [Entitic vol] 46.9 fL 35.1-43.9 [facility] Erythrocyte distribution width (RBC) [Ratio] 13.2 % 11.6-14.6 [facility] Immature granulocytes/100 WBC (Bld) 0.200 % 0.0-0.9 [facility] Comment on above: IG% - Immature Granu locytes (promyelocytes, myelocytes and metamyelocytes) > 1% indicates that a LEFT SHIFT is Present. MCH (RBC) [Entitic mass] 31.5 pg 27.0-32.0 [facility] Nucleated RBC/100 WBC (Bld) [Ratio] 0 % 0-5 [facility] Auto (RBC) [Mass/Vol]Or dered By: Dr. Luis on 12-28-2021 MCHC (RBC) [Mass/Vol] 32.7 g/dL 32-36 [facility] No Panel InformationOrdered By: Dr. Luis on 12-28-2021 Estimated GFR (MDRD) Amer 66 mL/min >60 [facility] Comment on above: GFR Calc Estimated GFR (MDRD) Non-Af Amer 54 mL/min >60 [facility] Comment on above: Non- GFR Calc Thyroid Stimulating Hormone (TSH) 0.74 uIU/mL 0.358-3.74 [facility] Vitamin D 25-Hydroxy 45.5 ng/mL [facility] Comment on above: Vitamin D 25(OH) Sta tus Range Deficiency <20 ng/mL (50nmol/L) Insufficiency 20 - 30 ng/mL (50 - 75 nmol/L) Sufficiency 30 - 100 ng/mL (75 - 250 nmol/L) Toxicity >100 ng/mL (>250 nmol/L) Platelets bldOrdered By: Dr. Luis on 12-28-2021 Platelets (Bld) [#/Vol] 247 10*3/uL 150-450 [facility] Serum or plasma albumin rosangela urement (mass/volume)Ordered By: Dr. Luis on 12-28-2021 Albumin [Mass/Vol] 3.2 g/dL 3.2-5.0 [facility] Serum or plasma albumin/glob ulin mass ratioOrdered By: Dr. Luis on 12-28-2021 Albumin/Globulin [Mass ratio] 1.1 {ratio} 0.9-2.4 [facility] Serum or plasma calcium rosangela urement (mass/volume)Ordered By: Dr. Luis on 12-28-2021 Calcium [Mass/Vol] 8.8 mg/dL 8.5-10.1 [facility] Serum or plasma creatinine m easurement (mass/volume)Ordered By: Dr. Luis on 12-28-2021 Creatinine [Mass/Vol] 1.06 mg/dL 0.55-1.02 [facility] Comment on above: The validity of the calculated GFR & GFRAA in patients over 70 years has not been determined. Clinical correlation is essential. Serum or plasma urea nitroge n measurement (mass/volume)Ordered By: Dr. Luis on 12-28-2021 Urea nitrogen [Mass/Vol] 9 mg/dL 7-18 [facility] Thin prep Papanicolaou smear with manual screeningOrdered By: Dr. Luis on 12-28-2021 Thin prep Papanicolaou smear with manual screening 13 U/L 15-37 [facility] Thin prep Papanicolaou smear with manual screening 4 5-15 [facility] Laboratory - Microbiology an d Antimicrobial susceptibilityon 12-01-2021 SARS-CoV-2 (COVID-19) RNA ANTIONE+probe Ql (Unsp spec) Not detected Not Detect [facility] Work Phone: Comment on above: Normal Reference Ran ge: Not DetectedMethod:(RT-PCR) real-time reverse transcriptase PCRLuminex [employer] Instrument*The Food and Drug Administration (FDA) has issued an Emergency Use Authorization (EAU) for the [employer] SARS-CoV-2 Assay for the rapid detection of [...] Auto (Unsp spec) [#/Vol] 1.71 10*3/uL 0.83-4.51 [facility] Work Phone: Basophil percentageon 2021 Basophils/100 WBC (Bld) 1.2 % 0-1 [facility] Work Phone: Bilirubin [Mass/Vol] 0.30 mg/dL 0.20-1.00 [facility] Work Phone: Comment on above: For patients on eltr ombopag therapy, use of Dimension [place] TBIL is not recommended. Chloride [Moles/Vol] 106 mmol/L 98-107 [facility] Work Phone: Eosinophils/100 WBC (Bld) 0.9 % 0-5 [facility] Work Phone: Glucose [Mass/Vol] 117 mg/dL 74-106 [facility] Work Phone: Comment on above: Fasting Glucose resu lt from 100 to 125 mg/dL suggests IMPAIRED HOMEOSTASIS per A.D.A. criteria. Neutrophils (Bld) [#/Vol] 1.2 10*3/uL 2.0-7.7 [facility] Work Phone: Neutrophils/100 WBC (Bld) 37.4 % 47-70 [facility] Work Phone: Potassium [Moles/Vol] 3.7 mmol/L 3.5-5.1 [facility] Work Phone: Protein [Mass/Vol] 6.4 g/dL 6.4-8.2 [facility] Work Phone: Sodium [Moles/Vol] 137 mmol/L 136-145 [facility] Work Phone: WBC (Bld) [#/Vol] 3.3 10*3/uL 4.4-11.0 [facility] Work Phone: Blood erythrocytes count (nu mber/volume)on 06-27-2021 RBC (Bld) [#/Vol] 3.82 10*6/uL 4.2-5.4 [facility] Work Phone: Blood hemoglobin measurement (mass/volume)on 06-27-2021 Hemoglobin (Bld) [Mass/Vol] 12.2 g/dL 12.0-15.0 [facility] Work Phone: Blood lymphocytes/100 leukoc yteson 06-27-2021 Lymphocytes/100 WBC (Bld) 51.7 % 19-41 [facility] Work Phone: Blood monocytes/100 leukocyt eson 06-27-2021 Monocytes/100 WBC (Bld) 8.5 % 0-10 [facility] Work Phone: [phone] Blood platelet mean volumeon 06-27-2021 Platelet mean volume (Bld) [Entitic vol] 10.5 fL 6.2-12.0 [facility] Work Phone: [phone] Determination of erythrocyte mean corpuscular volume (MCV)on 06-27-2021 MCV (RBC) [Entitic vol] 95.0 fL 81-99 [facility] Work Phone: Hematocrit Auto (Bld) [Volum e fraction]on 06-27-2021 Hematocrit (Bld) [Volume fraction] 36.3 % 37-47 [facility] Work Phone: [phone] Laboratory - Chemistry and C hemistry - challengeon 06-27-2021 ALP [Catalytic activity/Vol] 74 U/L 45-117 [facility] Work Phone: [phone] ALT [Catalytic activity/Vol] 27 U/L 13-56 [facility] Work Phone: [phone] CO2 [Moles/Vol] 25.0 mmol/L 21.0-32.0 [facility] Work Phone: [phone] Globulin (S) [Mass/Vol] 3.2 g/dL 2.2-4.2 [facility] Work Phone: [phone] Urea nitrogen/Creatinine [Mass ratio] 6.4 mg/mg 10-20 [facility] Work Phone: [phone] Laboratory - Hematology and Cell countson 06-27-2021 Erythrocyte distribution width (RBC) [Entitic vol] 44.8 fL 35.1-43.9 [facility] Work Phone: [phone] Erythrocyte distribution width (RBC) [Ratio] 12.9 % 11.6-14.6 [facility] Work Phone: [phone] Immature granulocytes/100 WBC (Bld) 0.300 % 0.0-0.9 [facility] Work Phone: [phone] Comment on above: IG% - Immature Granu locytes (promyelocytes, myelocytes and metamyelocytes) > 1% indicates that a LEFT SHIFT is Present. MCH (RBC) [Entitic mass] 31.9 pg 27.0-32.0 [facility] Work Phone: Nucleated RBC/100 WBC (Bld) [Ratio] 0.6 % 0-5 [facility] Work Phone: MCHC Auto (RBC) [Mass/Vol]on 06-27-2021 MCHC (RBC) [Mass/Vol] 33.6 g/dL 32-36 [facility] Work Phone: No Panel Informationon 06-27 Estimated GFR (MDRD) Amer 63 mL/min >60 [facility] Work Phone: Comment on above: GFR Calc Estimated GFR (MDRD) Non-Af Amer 52 mL/min >60 [facility] Work Phone: Comment on above: Non- GFR Calc Thyroid Stimulating Hormone (TSH) 0.50 uIU/mL 0.358-3.74 [facility] Work Phone: Vitamin D 25-Hydroxy 29.8 ng/mL [facility] Work Phone: Comment on above: Vitamin D 25(OH) Sta tus Range Deficiency <20 ng/mL (50nmol/L) Insufficiency 20 - 30 ng/mL (50 - 75 nmol/L) Sufficiency 30 - 100 ng/mL (75 - 250 nmol/L) Toxicity >100 ng/mL (>250 nmol/L) Platelets bldon 06-27-2021 Platelets (Bld) [#/Vol] 282 10*3/uL 150-450 [facility] Work Phone: Serum or plasma albumin rosangela urement (mass/volume)on 06-27-2021 Albumin [Mass/Vol] 3.2 g/dL 3.2-5.0 [facility] Work Phone: Serum or plasma albumin/glob ulin mass ratioon 06-27-2021 Albumin/Globulin [Mass ratio] 1.0 {ratio} 0.9-2.4 [facility] Work Phone: Serum or plasma calcium rosangela urement (mass/volume)on 06-27-2021 Calcium [Mass/Vol] 8.6 mg/dL 8.5-10.1 [facility] Work Phone: Serum or plasma creatinine m easurement (mass/volume)on 06-27-2021 Creatinine [Mass/Vol] 1.10 mg/dL 0.55-1.02 [facility] Work Phone: Comment on above: The validity of the calculated GFR & GFRAA in patients over 70 years has not been determined. Clinical correlation is essential. Serum or plasma urea nitroge n measurement (mass/volume)on 06-27-2021 Urea nitrogen [Mass/Vol] 7 mg/dL 7-18 [facility] Work Phone: Thin prep Papanicolaou smear with manual screeningon 06-27-2021 Thin prep Papanicolaou smear with manual screening 24 U/L 15-37 [facility] Work Phone: Thin prep Papanicolaou smear with manual screening 6 5-15 [facility] Work Phone: No Panel Information Influenza Types A,B Direct FA (STEPHANIE) [facility] Work Phone: Vital Signs Date Time Vital Sign Value Performing Clinician Facility 10-02-2024 20:00-0400 Heart rate 98 /min Dr. Harish Luis MD Work Phone: [facility] 10-02-2024 20:00-0400 SaO2% (BldA) [Mass fraction] 98 % Dr. Harish Luis MD Work Phone: [facility] 10-02-2024 09:12-0400 Body temperature 97.6 [degF] Dr. Harish Luis MD Work Phone: [facility] 10-02-2024 09:12-0400 Diastolic blood pressure 95 mm[Hg] Dr. Harish Luis MD Work Phone: [facility] 10-02-2024 09:12-0400 Respiratory rate 16 /min Dr. Harish Luis MD Work Phone: [phone] [place] [address] 10-02-2024 09:12-0400 Systolic blood pressure 138 mm[Hg] Dr. Harish Luis MD Work Phone: [phone] [place] [address] 10-01-2024 11:33-0400 Body height 154.[address] Harish Luis MD Work Phone: [phone] [place] [address] 10-01-2024 11:33-0400 Body weight 46.[address] Harish Luis MD Work Phone: [phone] [place] [address] 09-30-2024 16:12-0400 Body mass index (BMI) [Ratio] 19.4 kg/m2 Dr. Harish Luis MD Work Phone: [phone] [place] [address] 09-29-2024 14:22-0400 Body temperature 97.6 [degF] Dr. Harish Luis MD Work Phone: [phone] [place] [address] 09-29-2024 14:22-0400 Diastolic blood pressure 69 mm[Hg] Dr. Harish Luis MD Work Phone: [phone] [place] [address] 09-29-2024 14:22-0400 Heart rate 100 /min Dr. Harish Luis MD Work Phone: [phone] [place] [address] 09-29-2024 14:22-0400 Respiratory rate 17 /min Dr. Harish Luis MD Work Phone: [phone] [place] [address] 09-29-2024 14:22-0400 SaO2% (BldA) [Mass fraction] 97 % Dr. Harish Luis MD Work Phone: [phone] [place] [address] 09-29-2024 14:22-0400 Systolic blood pressure 118 mm[Hg] Dr. Harish Luis MD Work Phone: [phone] [place] [address] 09-29-2024 06:00-0400 Body mass index (BMI) [Ratio] 19.2 kg/m2 Dr. Harish Luis MD Work Phone: [phone] [place] [address] 09-29-2024 06:00-0400 Body weight 46.2 kg Dr. Harish Luis MD Work Phone: 5(879)006-103725 [place] [address] 09-28-2024 10:59-0400 Body height 154.[address] Harish Luis MD Work Phone: 0(475)953-120205 [place] [address] 09-27-2024 15:19-0400 Body temperature 97.5 [degF] Dr. Harish Luis MD Work Phone: 0(790)357-796105 [place] [address] 09-27-2024 15:19-0400 Diastolic blood pressure 86 mm[Hg] Dr. Harish Luis MD Work Phone: 2(706)830-158805 [place] [address] 09-27-2024 15:19-0400 Heart rate 79 /min Dr. Harish Luis MD Work Phone: 0(223)401-146505 [place] [address] 09-27-2024 15:19-0400 Respiratory rate 27 /min Dr. Harish Luis MD Work Phone: 5(734)440-363305 [place] [address] 09-27-2024 15:19-0400 SaO2% (BldA) [Mass fraction] 98 % Dr. Harish Luis MD Work Phone: 5(268)700-759305 [place] [address] 09-27-2024 15:19-0400 Systolic blood pressure 168 mm[Hg] Dr. Harish Luis MD Work Phone: 8(668)237-435005 [place] [address] 09-27-2024 12:26-0400 Body height 160.[address] Harish Luis MD Work Phone: 8(129)245-292105 [place] [address] 09-27-2024 12:26-0400 Body mass index (BMI) [Ratio] 18.8 kg/m2 Dr. Harish Luis MD Work Phone: 1(922)712-214705 [place] [address] 09-27-2024 12:26-0400 Body weight 48.[address] Harish Luis MD Work Phone: 5(418)239-519205 [place] [address] 09-22-2024 14:00-0400 Body temperature 97.3 [degF] Dr. Harish Luis MD Work Phone: 4(448)136-647805 [place] [address] 09-22-2024 14:00-0400 Diastolic blood pressure 71 mm[Hg] Dr. Harish Luis MD Work Phone: [facility] 09-22-2024 14:00-0400 Heart rate 103 /min Dr. Harish Luis MD Work Phone: [facility] 09-22-2024 14:00-0400 Respiratory rate 14 /min Dr. Harish Luis MD Work Phone: [facility] 09-22-2024 14:00-0400 SaO2% (BldA) [Mass fraction] 97 % Dr. Harish Luis MD Work Phone: [facility] 09-22-2024 14:00-0400 Systolic blood pressure 121 mm[Hg] Dr. Harish Luis MD Work Phone: 9(485)908-197325 [place] [address] 09-22-2024 10:12-0400 Body height 160.[address] Harish Luis MD Work Phone: 5(323)656-908925 [place] [address] 09-22-2024 10:12-0400 Body weight 47.[address] Harish Luis MD Work Phone: 7(375)292-258425 [place] [address] 09-22-2024 03:01-0400 Body mass index (BMI) [Ratio] 18.6 kg/m2 Dr. Harish Lius MD Work Phone: [facility] 09-21-2024 19:39-0400 Body temperature 99.3 [degF] Dr. Harish Luis MD Work Phone: [facility] 09-21-2024 19:39-0400 Diastolic blood pressure 74 mm[Hg] Dr. Harish Luis MD Work Phone: [facility] 09-21-2024 19:39-0400 Heart rate 86 /min Dr. Harish Luis MD Work Phone: [facility] 09-21-2024 19:39-0400 Respiratory rate 24 /min Dr. Harish Luis MD Work Phone: [facility] 09-21-2024 19:39-0400 SaO2% (BldA) [Mass fraction] 97 % Dr. Harish Luis MD Work Phone: 2(370)292-408025 [place] [address] 09-21-2024 19:39-0400 Systolic blood pressure 140 mm[Hg] Dr. Harish Luis MD Work Phone: 4(102)922-549625 [place] [address] 09-21-2024 18:01-0400 Body height 157.[address] Harish Luis MD Work Phone: 7(120)110-511225 [place] [address] 09-21-2024 18:01-0400 Body mass index (BMI) [Ratio] 20.4 kg/m2 Dr. Harish Luis MD Work Phone: 4(143)571-419125 [place] [address] 09-21-2024 18:01-0400 Body weight 50.[address] Harish Luis MD Work Phone: 8(096)849-851605 [place] [address] 08-29-2024 07:54-0400 Body temperature 97.1 [degF] Dr. Harish Luis MD Work Phone: 3(779)122-898505 [place] [address] 08-29-2024 07:54-0400 Diastolic blood pressure 89 mm[Hg] Dr. Harish Luis MD Work Phone: 5(002)235-516005 [place] [address] 08-29-2024 07:54-0400 Heart rate 80 /min Dr. Harish Luis MD Work Phone: 3(019)292-799705 [place] [address] 08-29-2024 07:54-0400 Respiratory rate 18 /min Dr. Harish Luis MD Work Phone: 9(535)032-231905 [place] [address] 08-29-2024 07:54-0400 SaO2% (BldA) [Mass fraction] 93 % Dr. Harish Luis MD Work Phone: 7(011)230-717325 [place] [address] 08-29-2024 07:54-0400 Systolic blood pressure 141 mm[Hg] Dr. Harish Luis MD Work Phone: 6(862)508-949105 [place] [address] 08-28-2024 10:15-0400 Body height 157.[address] Harish Luis MD Work Phone: 9(894)263-974705 [place] [address] 08-28-2024 10:15-0400 Body weight 48.[address] Harish Luis MD Work Phone: 3(724)503-022605 [place] [address] 08-27-2024 20:46-0400 Body mass index (BMI) [Ratio] 19.7 kg/m2 Dr. Harish Luis MD Work Phone: 2(040)658-907025 [place] [address] 08-27-2024 20:00-0400 Diastolic blood pressure 94 mm[Hg] Dr. Harish Luis MD Work Phone: 6(482)898-813225 [place] [address] 08-27-2024 20:00-0400 Heart rate 103 /min Dr. Harish Luis MD Work Phone: 2(614)990-063025 [place] [address] 08-27-2024 20:00-0400 Respiratory rate 30 /min Dr. Harish Luis MD Work Phone: 1(760)088-489505 [place] [address] 08-27-2024 20:00-0400 Systolic blood pressure 142 mm[Hg] Dr. Harish Luis MD Work Phone: 0(567)802-159105 [place] [address] 08-27-2024 18:05-0400 Body temperature 100.9 [degF] Dr. Harish Luis MD Work Phone: 1(355)601-226805 [place] [address] 08-27-2024 18:05-0400 SaO2% (BldA) [Mass fraction] 93 % Dr. Harish Luis MD Work Phone: 2(043)870-305405 [place] [address] 08-27-2024 15:36-0400 Body height 157.[address] Harish Luis MD Work Phone: 6(304)391-308105 [place] [address] 08-27-2024 15:36-0400 Body mass index (BMI) [Ratio] 19.8 kg/m2 Dr. Harish Luis MD Work Phone: 9(630)578-968325 [place] [address] 08-27-2024 15:36-0400 Body weight [address] Harish Luis MD Work Phone: 5(879)380-721405 [place] [address] 06-04-2024 15:44-0400 Body mass index (BMI) [Ratio] 20.1 kg/m2 Dr. Harish Luis MD Work Phone: 5(976)803-336725 [place] [address] 06-04-2024 15:44-0400 Body weight [address] Harish Luis MD Work Phone: 7(407)462-310605 [place] [address] 06-04-2024 15:08-0400 Body height 157.[address] Harish Lusi MD Work Phone: [facility] 06-04-2024 15:08-0400 Body temperature 97 [degF] Dr. Harish Luis MD Work Phone: [facility] 06-04-2024 15:08-0400 Diastolic blood pressure 81 mm[Hg] Dr. Harish Luis MD Work Phone: [facility] 06-04-2024 15:08-0400 Heart rate 106 /min Dr. Harish Luis MD Work Phone: [facility] 06-04-2024 15:08-0400 Respiratory rate 19 /min Dr. Harish Luis MD Work Phone: [facility] 06-04-2024 15:08-0400 SaO2% (BldA) [Mass fraction] 98 % Dr. Harish Luis MD Work Phone: [facility] 06-04-2024 15:08-0400 Systolic blood pressure 130 mm[Hg] Dr. Harish Luis MD Work Phone: [facility] 07-30-2023 18:02-0400 Body temperature 97.6 [degF] [facility] 07-30-2023 18:02-0400 Diastolic blood pressure 63 mm[Hg] [facility] 07-30-2023 18:02-0400 Heart rate 90 /min [facility] 07-30-2023 18:02-0400 Inhaled oxygen flow rate 3 L/min [facility] 07-30-2023 18:02-0400 Respiratory rate 17 /min [facility] 07-30-2023 18:02-0400 SaO2% (BldA) [Mass fraction] 95 % [facility] 07-30-2023 18:02-0400 Systolic blood pressure 113 mm[Hg] [facility] 07-30-2023 13:51-0400 Body mass index (BMI) [Ratio] 22.4 kg/m2 [facility] 07-30-2023 13:51-0400 Body weight 55.6 kg [facility] 07-30-2023 13:35-0400 Body height 157.48 cm [facility] 07-24-2023 22:13-0400 Body temperature 97.1 [degF] [facility] 07-24-2023 22:13-0400 Diastolic blood pressure 77 mm[Hg] [facility] 07-24-2023 22:13-0400 Heart rate 61 /min [facility] 07-24-2023 22:13-0400 Respiratory rate 18 /min [facility] 07-24-2023 22:13-0400 SaO2% (BldA) [Mass fraction] 93 % [facility] 07-24-2023 22:13-0400 Systolic blood pressure 137 mm[Hg] [facility] 07-24-2023 19:51-0400 Body height 157.48 cm [facility] 03-17-2023 13:31-0500 Body height 160.02 cm [facility] 03-17-2023 13:31-0500 Body temperature 98 [degF] [facility] 03-17-2023 13:31-0500 Diastolic blood pressure 73 mm[Hg] [facility] 03-17-2023 13:31-0500 Heart rate 87 /min [facility] 03-17-2023 13:31-0500 Respiratory rate 14 /min [facility] 03-17-2023 13:31-0500 SaO2% (BldA) [Mass fraction] 97 % [facility] 03-17-2023 13:31-0500 Systolic blood pressure 128 mm[Hg] [facility] 11-04-2022 09:15-0400 Body temperature 98.2 [degF] Dr. Harish Luis Work Phone: [facility] 11-04-2022 09:15-0400 Diastolic blood pressure 75 mm[Hg] Dr. Harish Luis Work Phone: [facility] 11-04-2022 09:15-0400 Heart rate 88 /min Dr. Harish Luis Work Phone: [facility] 11-04-2022 09:15-0400 Respiratory rate 14 /min Dr. Harish Luis Work Phone: [facility] 11-04-2022 09:15-0400 SaO2% (BldA) [Mass fraction] 96 % Dr. Harish Luis Work Phone: [facility] 11-04-2022 09:15-0400 Systolic blood pressure 137 mm[Hg] Dr. Harish Luis Work Phone: 2(984)593-549225 [place] [address] 11-03-2022 12:44-0400 Body height 160.[address] Harish Luis Work Phone: 0(471)621-018725 [place] [address] 11-03-2022 12:44-0400 Body weight 48.[address] Harish Luis Work Phone: 2(015)775-363225 [place] [address] 11-03-2022 10:59-0400 Body mass index (BMI) [Ratio] 18.9 kg/m2 Dr. Harish Luis Work Phone: [facility] 11-01-2022 11:00-0400 Diastolic blood pressure 54 mm[Hg] Dr. Harish Luis Work Phone: 4(107)585-264725 [place] [address] 11-01-2022 11:00-0400 Systolic blood pressure 110 mm[Hg] Dr. Harish Luis Work Phone: [facility] 11-01-2022 10:01-0400 Body temperature 98.3 [degF] Dr. Harish Luis Work Phone: [facility] 11-01-2022 10:01-0400 Heart rate 69 /min Dr. Harish Luis Work Phone: [facility] 11-01-2022 10:01-0400 Respiratory rate 13 /min Dr. Harish Luis Work Phone: [facility] 11-01-2022 10:01-0400 SaO2% (BldA) [Mass fraction] 99 % Dr. Harish Luis Work Phone: [facility] 11-01-2022 07:48-0400 Body height 159.[address] Harish Luis Work Phone: [facility] 11-01-2022 07:48-0400 Body mass index (BMI) [Ratio] 19.7 kg/m2 Dr. Harish Luis Work Phone: [facility] 11-01-2022 07:48-0400 Body weight 50.[address] Harish Luis Work Phone: [facility] 10-14-2022 08:16-0400 SaO2% (BldA) [Mass fraction] 95 % Dr. Harish Luis Work Phone: 1(813)338-169425 [place] [address] 10-14-2022 04:08-0400 Body mass index (BMI) [Ratio] 19.4 kg/m2 Dr. Harish Luis Work Phone: 4(182)522-612225 [place] [address] 10-14-2022 04:08-0400 Body weight 49.[address] Harish Luis Work Phone: 5(541)737-844025 [place] [address] 10-14-2022 04:06-0400 Body temperature 98.6 [degF] Dr. Harish Luis Work Phone: 9(831)322-145625 [place] [address] 10-14-2022 04:06-0400 Diastolic blood pressure 62 mm[Hg] Dr. Harish Luis Work Phone: [facility] 10-14-2022 04:06-0400 Heart rate 79 /min Dr. Harish Luis Work Phone: [facility] 10-14-2022 04:06-0400 Respiratory rate 16 /min Dr. Harish Luis Work Phone: [facility] 10-14-2022 04:06-0400 Systolic blood pressure 105 mm[Hg] Dr. Harish Luis Work Phone: 9(538)337-575325 [place] [address] 10-13-2022 15:38-0400 Body height 160.[address] Harish Luis Work Phone: 4(169)936-091225 [place] [address] 10-13-2022 14:58-0400 Body temperature 98.1 [degF] Dr. Harish Luis Work Phone: [facility] 10-13-2022 14:58-0400 Diastolic blood pressure 67 mm[Hg] Dr. Harish Luis Work Phone: [facility] 10-13-2022 14:58-0400 Heart rate 74 /min Dr. Harish Luis Work Phone: [facility] 10-13-2022 14:58-0400 Respiratory rate 16 /min Dr. Harish Luis Work Phone: [facility] 10-13-2022 14:58-0400 SaO2% (BldA) [Mass fraction] 95 % Dr. Harish Luis Work Phone: [facility] 10-13-2022 14:58-0400 Systolic blood pressure 121 mm[Hg] Dr. Harish Luis Work Phone: 1(247)166-337025 [place] [address] 10-13-2022 10:04-0400 Body height 160.[address] Harish Luis Work Phone: 7(785)896-170525 [place] [address] 10-13-2022 10:04-0400 Body mass index (BMI) [Ratio] 18.6 kg/m2 Dr. Harish Luis Work Phone: 5(019)779-526825 [place] [address] 10-13-2022 10:04-0400 Body weight 47.[address] Harish Luis Work Phone: 4(447)577-340725 [place] [address] 08-26-2022 04:35-0400 Diastolic blood pressure 79 mm[Hg] Dr. Harish Luis Work Phone: [facility] 08-26-2022 04:35-0400 Heart rate 69 /min Dr. Harish Luis Work Phone: [facility] 08-26-2022 04:35-0400 Respiratory rate 15 /min Dr. Harish Luis Work Phone: [facility] 08-26-2022 04:35-0400 SaO2% (BldA) [Mass fraction] 95 % Dr. Harish Luis Work Phone: 9(173)682-884325 [place] [address] 08-26-2022 04:35-0400 Systolic blood pressure 143 mm[Hg] Dr. Harish Luis Work Phone: [facility] 08-26-2022 02:42-0400 Body mass index (BMI) [Ratio] 19.6 kg/m2 Dr. Harish Luis Work Phone: [facility] 08-26-2022 02:42-0400 Body temperature 97.5 [degF] Dr. Harish Luis Work Phone: [facility] 08-26-2022 02:42-0400 Body weight 50.[address] Harish Luis Work Phone: 9(995)651-861425 [place] [address] 08-03-2022 15:30-0400 Body temperature 98.1 [degF] Dr. Harish Luis Work Phone: 9(136)580-999988 [address] 08-03-2022 15:30-0400 Diastolic blood pressure 81 mm[Hg] Dr. Harish Luis Work Phone: 7(774)435-733825 [place] [address] 08-03-2022 15:30-0400 Heart rate 66 /min Dr. Harish Luis Work Phone: 6(145)727-704025 [place] [address] 08-03-2022 15:30-0400 Respiratory rate 16 /min Dr. Harish Luis Work Phone: [facility] 08-03-2022 15:30-0400 SaO2% (BldA) [Mass fraction] 93 % Dr. Harish Luis Work Phone: [facility] 08-03-2022 15:30-0400 Systolic blood pressure 133 mm[Hg] Dr. Harish Luis Work Phone: [facility] 08-03-2022 12:57-0400 Body mass index (BMI) [Ratio] 21.4 kg/m2 Dr. Harish Luis Work Phone: [facility] 08-03-2022 11:31-0400 Inhaled oxygen flow rate 2 L/min Dr. Harish Luis Work Phone: [facility] 08-02-2022 14:18-0400 Body weight 54.[address] Harish Luis Work Phone: [facility] 07-29-2022 09:48-0400 Body temperature 97.2 [degF] Dr. Harish Luis Work Phone: [facility] 07-29-2022 09:48-0400 Diastolic blood pressure 78 mm[Hg] Dr. Harish Luis Work Phone: [facility] 07-29-2022 09:48-0400 Heart rate 90 /min Dr. Harish Luis Work Phone: [facility] 07-29-2022 09:48-0400 Inhaled oxygen flow rate 4 L/min Dr. Hraish Luis Work Phone: [facility] 07-29-2022 09:48-0400 Respiratory rate 20 /min Dr. Harish Luis Work Phone: [facility] 07-29-2022 09:48-0400 SaO2% (BldA) [Mass fraction] 95 % Dr. Harish Luis Work Phone: [facility] 07-29-2022 09:48-0400 Systolic blood pressure 112 mm[Hg] Dr. Harish Luis Work Phone: [facility] 07-29-2022 07:43-0400 Body height 160.[address] Harish Luis Work Phone: [facility] 07-29-2022 07:43-0400 Body mass index (BMI) [Ratio] 24.2 kg/m2 Dr. Harish Luis Work Phone: [facility] 07-29-2022 07:43-0400 Body weight 62.[address] Harish Luis Work Phone: [facility] 04-27-2022 08:40-0500 Body temperature 97.5 [degF] Dr. Harish Luis Work Phone: [facility] 04-27-2022 08:40-0500 Diastolic blood pressure 62 mm[Hg] Dr. Harish Luis Work Phone: [facility] 04-27-2022 08:40-0500 Heart rate 79 /min Dr. Harish Luis Work Phone: [facility] 04-27-2022 08:40-0500 Respiratory rate 16 /min Dr. Harish Luis Work Phone: [facility] 04-27-2022 08:40-0500 SaO2% (BldA) [Mass fraction] 96 % Dr. Harish Luis Work Phone: [facility] 04-27-2022 08:40-0500 Systolic blood pressure 105 mm[Hg] Dr. Harish Luis Work Phone: [facility] 04-27-2022 06:26-0500 Body height 160.[address] Harish Luis Work Phone: [facility] 04-27-2022 06:26-0500 Body mass index (BMI) [Ratio] 18.3 kg/m2 Dr. Harish Luis Work Phone: [facility] 04-27-2022 06:26-05[address] Body weight [address] Harish Luis Work Phone: [facility] Encounters Encounter Date Encounter Type Care Provider Facility Start: 12-29-2024 End: 12-29-2024 ambulatory NICHOL O'JAMAL Facility:[facility] Start: 12-11-2024 End: 12-11-2024 ambulatory [facility] Facility:[facility] Start: 10-03-2024 ambulatory Gurmeet Zarate Facility :[facility] Start: 10-02-2024 Gurmeet Zarate DO -[facility] Start: 10-01-2024 Gladys WOO - [facility] Start: 09-29-2024 End: 10-03-2024 Dr. Harish Luis MD -Transitional Care [facility] Start: 09-29-2024 ambulatory Harish Luis Facility:[facility] Start: 09-29-2024 End: 10-03-2024 Evaluation and management of inpatient Dr. Harish Luis MD Work Phone: -Transitional Care Unit Start: 09-29-2024 Non-patient / Non-visit Dr. Ricardo hess MD -[facility] Work Phone: Start: 09-29-2024 Dr. Ricardo Padilla MD -[facility] Work Phone: Start: 09-28-2024 Non-patient / Non-visit Dr. Anastasia Khan MD -[facility] Work Phone: Start: 09-28-2024 Dr. Anastasia Khan MD - [facility] Work Phone: Start: 09-27-2024 End: 09-29-2024 Evaluation and management of inpatient Dr. Anastasia Khan MD -Medical Surgical 3 Work Phone: Start: 09-27-2024 End: 09-29-2024 ambulatory [facility] Facility:[facility] Start: 09-27-2024 Non-patient / Non-visit Dr. Anastasia Khan MD -[facility] Work Phone: Start: 09-27-2024 End: 09-29-2024 Dr. Ricardo Padilla MD -[facility] Surgical 3 Work Phone: Start: 09-22-2024 Non-patient / Non-visit Dr. Anastasia Khan MD -[facility] Work Phone: Start: 09-22-2024 Dr. Anastasia Khan MD - [facility] Work Phone: Start: 09-21-2024 End: 09-22-2024 ambulatory Ricardo Justice Facility:[facility] Start: 09-21-2024 End: 09-22-2024 Evaluation and management of inpatient Dr. Ricardo Justice DO -Progressive Care Unit Work Phone: Start: 09-21-2024 End: 09-22-[address] Harish Luis MD Work Phone: -Progressive Care Unit Start: 09-21-2024 End: 09-22-2024 Dr. Anastasia Khan MD -Progressive Care Unit Work Phone: Start: 08-29-2024 Non-patient / Non-visit Dr. Song [facility] Work Phone: Start: 08-29-2024 Dr. Beaulieu [facility] Work Phone: Start: 08-28-2024 Non-patient / Non-visit Dr. Song [facility] Work Phone: Start: 08-28-2024 Dr. Beaulieu [facility] Work Phone: Start: 08-27-2024 ambulatory Christofer Espino Fac ility:[facility] Start: 08-27-2024 End: 08-29-2024 Evaluation and management of inpatient Dr. Christofer Espino [facility] Work Phone: Start: 08-27-2024 End: 08-29-2024 Dr. Christofer Espino [facility] Unit Work Phone: Start: 07-15-2024 End: 07-15-[address] Harish Luis MD -Cat Scan [facility] Work Phone: Start: 07-15-2024 End: 07-15-2024 Dr. Harish Luis MD -Cat Scan [facility] Work Phone: Start: 07-15-2024 End: 07-15-2024 ambulatory [facility] Facility:[facility] Start: 06-04-2024 End: 06-04-2024 Emergency department patient visit Dr. Harish Luis MD Work Phone: -Emergency Department Work Phone: Start: 03-31-2024 End: 03-31-[address] Harish Luis MD -Cat Scan, [facility] Work Phone: Start: 03-31-2024 End: 03-31-2024 ambulatory [facility] Facility:[facility] Start: 02-19-2024 End: 02-19-[address] Harish Luis MD -Laboratory, Phy Office 3rd [facility] Start: 02-19-2024 End: 02-19-2024 ambulatory [facility] Facility:[facility] Start: 01-09-2024 End: 01-09-2024 ambulatory [facility] Facility:[facility] Start: 01-03-2024 ambulatory [facility] Facility:[facility] Start: 01-03-2024 End: 01-04-2024 Evaluation and management of inpatient [facility] Facility:[facility] Start: 07-30-2023 Evaluation and management of inpatient [facility]-Progressive Care Unit Work Phone: Start: 07-27-2023 Patient encounter procedure [facility]-Radiology, [facility] Work Phone: Start: 07-24-2023 End: 07-24-2023 Emergency department patient visit [facility]-Emergency Department Work Phone: Start: 07-11-2023 End: 07-11-2023 ambulatory [facility] Work Phone: Start: 07-11-2023 End: 07-11-2023 Patient encounter procedure [facility]-Laboratory, Phy Office 3rd Flr Start: 06-27-2023 End: 06-27-2023 ambulatory [facility] Work Phone: Start: 06-27-2023 End: 06-27-2023 Patient encounter procedure [facility]-Laboratory, Phy Office 3rd Flr Start: 03-17-2023 End: 03-17-2023 Emergency department patient visit [facility]-Emergency Department Work Phone: Start: 01-01-2023 End: 01-01-[address] Harish Luis Work Phone: [facility] Work Phone: Start: 01-01-2023 End: 01-01-[address] Harish Luis Work Phone: [facility]-Laboratory, Phy Office 3rd Flr Start: 11-04-2022 Non-patient / Non-visit Dr. Levar Luis Work Phone: [facility] Work Phone: Start: 11-03-2022 Non-patient / Non-visit Dr. Levar Luis Work Phone: [facility] Start: 11-03-2022 Non-patient / Non-visit Dr. Levar Luis Work Phone: [facility] Work Phone: Start: 11-03-2022 End: 11-03-2022 Non-patient / Non-visit Dr. Harish Luis Work Phone: [facility] Work Phone: Start: 11-02-2022 Non-patient / Non-visit Dr. Levar Luis Work Phone: [facility] Start: 11-02-2022 Non-patient / Non-visit Dr. Levar Luis Work Phone: [facility] Work Phone: Start: 11-01-2022 Non-patient / Non-visit Dr. Levar Luis Work Phone: [facility] Work Phone: Start: 11-01-2022 End: 11-04-2022 Evaluation and management of inpatient Dr. Harish Luis Work Phone: [facility]-Progressive Care Unit Work Phone: Start: 10-14-2022 Non-patient / Non-visit Dr. Levar Luis Work Phone: [facility] Start: 10-13-2022 Non-patient / Non-visit Dr. Levar Luis Work Phone: [facility] Work Phone: Start: 10-13-2022 End: 10-14-2022 Evaluation and management of inpatient Dr. Harish Luis Work Phone: [facility]-Medical Surgical 3 Work Phone: Start: 10-12-2022 End: 10-12-[address] Harish Luis Work Phone: [facility] Work Phone: Start: 10-12-2022 End: 10-12-[address] Harish [facility] Work Phone: [facility] [facility] [place] Work Phone: Start: 08-26-2022 End: 08-26-2022 Emergency department patient visit Dr. Harish Luis Work Phone: [facility]-Emergency Department Work Phone: Start: 08-03-2022 Non-patient / Non-visit Dr. Levar Luis Work Phone: [facility] Start: 08-02-2022 Non-patient / Non-visit Dr. Levar Luis Work Phone: [facility] Start: 08-02-2022 Non-patient / Non-visit Dr. Levar Luis Work Phone: [facility] Work Phone: Start: 08-01-2022 Non-patient / Non-visit Dr. Levar Luis Work Phone: [facility] Start: 08-01-2022 Non-patient / Non-visit Dr. Levar Luis Work Phone: [facility] Work Phone: Start: 07-31-2022 Non-patient / Non-visit Dr. Levar Luis Work Phone: [facility] Work Phone: Start: 07-30-2022 Non-patient / Non-visit Dr. Levar Luis Work Phone: [facility] Work Phone: Start: 07-29-2022 Non-patient / Non-visit Dr. Levar Luis Work Phone: [facility] Work Phone: Start: 07-29-2022 End: 08-03-2022 Evaluation and management of inpatient Dr. Harish Luis Work Phone: [facility]-Progressive Care Unit Start: 07-06-2022 End: 07-06-[address] Harish Luis Work Phone: [facility] Work Phone: Start: 07-06-2022 End: 07-06-[address] Harish Luis Work Phone: [facility] Start: 06-28-2022 End: 06-28-[address] Harish Luis Work Phone: [facility]-Pulmonary Services/Neurology Start: 04-27-2022 End: 04-27-2022 Admission to same day surgery center Dr. Harish Luis Work Phone: [facility]-Surgical Day Care Start: 04-24-2022 End: 04-24-2022 Non-patient / Non-visit Dr. Harish Luis Work Phone: [facility] Start: 04-10-2022 End: 04-10-2022 ambulatory [facility] Work Phone: Start: 04-10-2022 End: 04-10-2022 Patient encounter procedure [facility] Services/Neu[facility] Start: 03-31-2022 End: 03-31-2022 ambulatory [facility] Work Phone: Start: 03-31-2022 End: 03-31-2022 Patient encounter procedure [facility]Pulmonary Services/Neurology Start: 12-28-2021 End: 12-28-2021 ambulatory [facility] Work Phone: Start: 12-28-2021 End: 12-28-2021 Patient encounter procedure [facility]-Laboratory, Phy Office 3rd Flr Start: 12-01-2021 End: 12-01-2021 ambulatory [facility] Work Phone: Start: 12-01-2021 End: 12-01-2021 Patient encounter procedure [facility]Pulmonary Services/Neurology Start: 06-27-2021 End: 06-27-2021 Patient encounter procedure [facility]-Laboratory, Phy Office 3rd Flr Procedures Date Procedure Procedure Detail Performing Clinician Start: 10-01-[address] Harish Luis MD Work Phone: Start: 09-30-2024 Measurement of occult blood in stool specimen using immunoassay Dr. Harish Luis MD Work Phone: Start: 09-30-2024 Blood count smear mcrscp w/mnl difrntl wbc count Dr. Harish Luis MD Work Phone: Start: 09-30-[address] Harish sanderson MD Work Phone: Start: 09-30-2024 Mean corpuscular hemoglobin concentration determination Dr. Harish Luis MD Work Phone: Start: 09-30-2024 Nucleated red blood cell count procedure Dr. Harish Luis MD Work Phone: Start: 09-30-2024 Platelet mean volume determination Dr. Connor Luis MD Work Phone: Start: 09-30-2024 Total iron binding capacity measurement Dr. Harish Luis MD Work Phone: Start: 09-29-2024 Blood count smear mcrscp w/mnl difrntl wbc count Dr. Harish Luis MD Work Phone: Start: 09-29-[address] Harish sanderson MD Work Phone: Start: 09-29-2024 Mean corpuscular hemoglobin concentration determination Dr. Harish Luis MD Work Phone: Start: 09-29-2024 Platelet mean volume determination Dr. Connor Luis MD Work Phone: Start: 09-28-2024 Nucleated red blood cell count procedure Dr. Harish Luis MD Work Phone: Start: 09-27-2024 SARS-CoV-2, Influenza & RSV (PCR) Dr. Levar Luis MD Work Phone: Start: 09-27-2024 Dr. Harish Luis MD Work Phone: Start: 09-27-2024 Plain radiography of pelvis Dr. Harish Luis MD Work Phone: Start: 09-27-2024 Plain chest X-ray Dr. Harish Luis MD Work Phone: Start: 09-27-2024 Urine microscopy: red cells Dr. Harish Luis MD Work Phone: Start: 09-27-2024 Urnls dip stick/tablet reagent auto microscopy Dr. Harish Luis MD Work Phone: Start: 09-27-[address] Harish sanderson MD Work Phone: Start: 09-27-2024 CT of head without contrast Dr. Harish Luis MD Work Phone: Start: 09-22-2024 CT of head without contrast Dr. Harish Luis MD Work Phone: Start: 09-22-2024 Venous oxygen saturation measurement Dr. Harish Luis MD Work Phone: Start: 09-22-2024 Blood count smear mcrscp w/mnl difrntl wbc count Dr. Harish Luis MD Work Phone: Start: 09-22-2024 D-dimer assay, quantitative Dr. Harish Luis MD Work Phone: Comment on above: NORMAL D-Dimer level (<0.50) indicates n o DVT or PE. Start: 09-22-[address] Harish sanderson MD Work Phone: Start: 09-22-2024 Mean corpuscular hemoglobin concentration determination Dr. Harish Luis MD Work Phone: Start: 09-22-2024 Nucleated red blood cell count procedure Dr. Harish Luis MD Work Phone: Start: 09-22-2024 Platelet mean volume determination Dr. Connor Luis MD Work Phone: Start: 09-22-2024 Serum inorganic phosphate measurement Dr. Harish Luis MD Work Phone: Start: 09-22-2024 Total cholesterol:HDL ratio measurement Dr. Harish Luis MD Work Phone: Start: 09-21-2024 CT of chest without contrast Dr. Harish farfan MD Work Phone: Start: 09-21-2024 X-ray of chest, PA and lateral views Dr. Harish Luis MD Work Phone: Start: 09-21-[address] Harish Luis MD Work Phone: Start: 09-21-2024 Benzodiazepine measurement, urine Dr. Levar Luis MD Work Phone: Start: 09-21-2024 Cocaine measurement, urine Dr. Harish Luis MD Work Phone: Start: 09-21-2024 Methadone measurement, urine Dr. Harish farfan MD Work Phone: Start: 09-21-[address] Harish neal MD Work Phone: Start: 09-21-2024 Urine microscopy: red cells Dr. Harish Luis MD Work Phone: Start: 09-21-[address] Harish Luis MD Work Phone: Start: 09-21-2024 Urnls dip stick/tablet reagent auto microscopy Dr. Harish Luis MD Work Phone: Start: 09-21-2024 CT of head without contrast Dr. Harish Luis MD Work Phone: Start: 09-21-[address] Harish sanderson MD Work Phone: Start: 09-21-[address] Harish Luis MD Work Phone: Start: 09-21-2024 SARS-CoV-2, Influenza & RSV (PCR) Dr. Levar Luis MD Work Phone: Start: 09-21-2024 Dr. Harish Luis MD Work Phone: Start: 08-29-[address] Harish sanderson MD Work Phone: Start: 08-29-2024 Mean corpuscular hemoglobin concentration determination Dr. Harish Luis MD Work Phone: Start: 08-29-2024 Platelet mean volume determination Dr. Connor Luis MD Work Phone: Start: 08-28-2024 Serum inorganic phosphate measurement Dr. Harish Luis MD Work Phone: Start: 08-27-2024 Urine microscopy: red cells Dr. Harish Luis MD Work Phone: Start: 08-27-2024 Urnls dip stick/tablet reagent auto microscopy Dr. Harish Luis MD Work Phone: Start: 08-27-2024 Blood count smear mcrscp w/mnl difrntl wbc count Dr. Harish Luis MD Work Phone: Start: 08-27-2024 Calculation of international normalized ratio Dr. Harish Luis MD Work Phone: Start: 08-27-[address] Harish sanderson MD Work Phone: Start: 08-27-2024 Nucleated red blood cell count procedure Dr. Harish Luis MD Work Phone: Start: 08-27-2024 Plain chest X-ray Dr. Harish Luis MD Work Phone: Start: 08-27-[address] Harish Luis MD Work Phone: Start: 08-27-2024 Legionella pneumophila antigen assay Dr. Harish Luis MD Work Phone: Start: 08-27-2024 End: 08-27-2024 Streptococcus pneumoniae antigen assay Dr. Harish Luis MD Work Phone: Start: 08-27-[address] Harish Luis MD Work Phone: Start: 07-15-2024 Blood count smear mcrscp w/mnl difrntl wbc count Dr. Harish Luis MD Work Phone: Start: 07-15-2024 Mean corpuscular hemoglobin concentration determination Dr. Harish Luis MD Work Phone: Start: 07-15-2024 Nucleated red blood cell count procedure Dr. Harish Luis MD Work Phone: Start: 07-15-2024 Platelet mean volume determination Dr. Connor Luis MD Work Phone: Start: 07-15-2024 Total cholesterol:HDL ratio measurement Dr. Harish Luis MD Work Phone: [...] 08-26-2022 CT of head without contrast Dr. Hairsh Luis Work Phone: Start: 08-26-2022 Pelvis X-ray [...] Treatment Date Care Activity Detail Author Start: 10-03-2024 Patient discharge [facility] Start: 10-02-2024 [facility] Start: 10-02-2024 [facility] Start: 10-01-2024 Speech therapy assessment [facility] Start: 10-01-2024 Referral to gastroenterology service [facility] Start: 10-01-[address] [facility] Start: 09-30-2024 Speech therapy management [facility] Start: 09-30-[address] [facility] Start: 09-30-2024 Developing a treatment plan [facility] Start: 09-30-2024 Serum inorganic phosphate measurement [facility] Start: 09-29-2024 Speech therapy assessment [facility] Start: 09-29-2024 Admission procedure [facility] Start: 09-29-2024 Introduction of urinary catheter [facility] Start: 09-29-2024 Measuring intake and output [facility] Start: 09-29-2024 [facility] Start: 09-29-2024 Referral to occupational therapist [facility] Start: 09-29-2024 Referral to service [facility] Start: 09-29-[address] [facility] Start: 09-29-2024 End: 09-29-2024 [facility] Start: 09-29-2024 Following clinical pathway protocol [facility] Start: 09-29-2024 Patient discharge [facility] Start: 09-28-2024 Consultation [facility] Start: 09-27-2024 Following clinical pathway protocol [facility] Start: 09-27-2024 Aspiration precautions [facility] Start: 09-27-2024 Assessment of risk of venous thromboembolism [facility] Start: 09-27-2024 Fall prevention [facility] Start: 09-27-2024 Incentive spirometry [facility] Start: 09-27-2024 Inhalation therapy procedure [facility] Start: 09-27-2024 Insertion of catheter into peripheral vein [facility] Start: 09-27-2024 Introduction of urinary catheter [facility] Start: 09-27-2024 Measuring intake and output [facility] Start: 09-27-2024 Oxygen therapy [facility] Start: 09-27-2024 Providing care according to standard [facility] Start: 09-27-2024 Provision of activity privileges [facility] Start: 09-27-2024 Referral to occupational therapist [facility] Start: 09-27-2024 Referral to service [facility] Start: 09-27-2024 Speech therapy assessment [facility] Start: 09-27-2024 Tobacco use cessation education [facility] Start: 09-27-2024 [facility] Start: 09-27-2024 Verification routine [facility] Start: 09-27-2024 Admission procedure [facility] Start: 09-27-2024 Hospital admission, emergency, from emergency room, medical nature [facility] Start: 09-27-2024 Consultation [facility] Start: 09-27-2024 Patient referral to dietitian [facility] Start: 09-27-2024 [facility] Start: 09-23-2024 Serum inorganic phosphate measurement [facility] Start: 09-22-2024 Patient discharge [facility] Start: 09-22-2024 Care planning and problem solving actions [facility] Start: 09-21-2024 Application of intermittent pneumatic compression device [facility] Start: 09-21-2024 Following clinical pathway protocol [facility] Start: 09-21-2024 Aspiration precautions [facility] Start: 09-21-2024 Assessment of risk of venous thromboembolism [facility] Start: 09-21-2024 Incentive spirometry [facility] Start: 09-21-2024 Inhalation therapy procedure [facility] Start: 09-21-2024 Insertion of catheter into peripheral vein [facility] Start: 09-21-2024 Measuring intake and output [facility] Start: 09-21-2024 Oxygen therapy [facility] Start: 09-21-2024 Providing care according to standard [facility] Start: 09-21-2024 Provision of activity privileges [facility] Start: 09-21-2024 Referral to occupational therapist [facility] Start: 09-21-2024 Referral to service [facility] Start: 09-21-2024 Speech therapy assessment [facility] Start: 09-21-2024 [facility] Start: 09-21-2024 Electrocardiographic procedure [facility] Start: 09-21-2024 Thyroid stimulating hormone measurement [facility] Start: 09-21-2024 Verification routine [facility] Start: 09-21-2024 Admission procedure [facility] Start: 09-21-2024 Hospital admission, emergency, from emergency room, medical nature [facility] Start: 09-21-2024 CT of chest without contrast Chest without Contrast [facility] Start: 09-21-2024 End: 09-21-2024 [facility] Start: 09-21-2024 Consultation [facility] Start: 09-21-2024 Bacteria identified in Blood by Culture Blood Culture [facility] Start: 09-21-2024 Consultation [facility] Start: 09-21-2024 Patient referral to dietitian [facility] Start: 08-29-2024 Patient discharge [facility] Start: 08-28-2024 Referral to gastroenterology service [facility] Start: 08-27-2024 Following clinical pathway protocol [facility] Start: 08-27-2024 Ambulation without limitation [facility] Start: 08-27-2024 Assessment of risk of venous thromboembolism [facility] Start: 08-27-2024 Insertion of catheter into peripheral vein [facility] Start: 08-27-2024 Oxygen therapy [facility] Start: 08-27-2024 Providing care according to standard [facility] Start: 08-27-2024 Referral to occupational therapist [facility] Start: 08-27-2024 Referral to service [facility] Start: 08-27-2024 Speech therapy assessment [facility] Start: 08-27-2024 Streptococcus pneumoniae antigen assay [facility] Start: 08-27-2024 Hospital admission, emergency, from emergency room, medical nature [facility] Start: 08-27-2024 Verification routine [facility] Start: 08-27-2024 Admission procedure [facility] Start: 08-27-2024 End: 08-27-2024 [facility] Start: 08-27-2024 Bacteria identified in Blood by Culture Blood Culture [facility] Start: 08-27-2024 Bacteria identified in Urine by Culture Urine Culture [facility] Start: 08-27-2024 Urine culture [facility] Start: 06-04-2024 [facility] Start: 07-30-2023 Verification routine [facility] Start: 07-30-2023 Legionella pneumophila Ag [Presence] in Urine [facility] Start: 07-30-2023 Respiratory pathogens DNA and RNA panel - Respiratory specimen by ANTIONE with probe detection [facility] Start: 07-30-2023 Streptococcus pneumoniae antigen assay [facility] Start: 07-30-2023 [facility] Start: 07-30-2023 Admission procedure [facility] Start: 07-30-2023 Hospital admission, emergency, from emergency room, [facility] nature [facility] Start: 07-30-2023 Gas panel - Venous blood [facility] Start: 07-30-2023 [facility] Start: 07-24-2023 [facility] Start: 03-17-2023 [facility] Start: 11-04-2022 Patient discharge [facility] Start: 11-03-2022 Consultation [facility] Start: 11-03-2022 Care planning and problem solving actions [facility] Start: 11-02-2022 Catheterization of vein [facility] Start: 11-02-2022 Referral to gastroenterology service [facility] Start: 11-01-2022 Following clinical pathway protocol [facility] Start: 11-01-2022 Assessment of risk of venous thromboembolism [facility] Start: 11-01-2022 Catheterization of vein [facility] Start: 11-01-2022 Insertion of catheter into peripheral vein [facility] Start: 11-01-2022 Measuring intake and output [facility] Start: 11-01-2022 Providing care according to standard [facility] Start: 11-01-2022 Provision of activity privileges [facility] Start: 11-01-2022 Referral to occupational therapist [facility] Start: 11-01-2022 Referral to service [facility] Start: 11-01-2022 Speech therapy assessment [facility] Start: 11-01-2022 Tobacco use cessation education [facility] Start: 11-01-2022 [facility] Start: 11-01-2022 Admission procedure [facility] Start: 11-01-2022 Referral to service [facility] Start: 11-01-2022 Inhalation therapy procedure [facility] Start: 11-01-2022 Patient referral to dietitian [facility] Start: 10-14-2022 Patient discharge [facility] Start: 10-14-2022 Urinary bladder residual urine study [facility] Start: 10-14-2022 Removal of urinary catheter [facility] Start: 10-14-2022 Removal of urinary catheter [facility] Start: 10-14-2022 Vitamin B12 measurement [facility] Start: 10-14-2022 Vitamin D, 25-hydroxy measurement [facility] Start: 10-13-2022 Following clinical pathway protocol [facility] Start: 10-13-2022 Ambulation without limitation [facility] Start: 10-13-2022 Assessment of risk of venous thromboembolism [facility] Start: 10-13-2022 Incentive spirometry [facility] Start: 10-13-2022 Insertion of catheter into peripheral vein [facility] Start: 10-13-2022 Measuring intake and output [facility] Start: 10-13-2022 Oxygen therapy [facility] Start: 10-13-2022 Providing care according to standard [facility] Start: 10-13-2022 Provision of activity privileges [facility] Start: 10-13-2022 Referral to occupational therapist [facility] Start: 10-13-2022 Referral to service [facility] Start: 10-13-2022 [facility] Start: 10-13-2022 Verification routine [facility] Start: 10-13-2022 Referral to general surgeon [facility] Start: 10-13-2022 Admission procedure [facility] Start: 10-13-2022 End: 10-13-2022 [facility] Start: 08-03-2022 Patient discharge [facility] Start: 08-02-2022 End: 08-03-2022 [facility] Start: 08-02-2022 Cardiac monitoring [facility] Start: 08-02-2022 Catheterization of vein [facility] Start: 08-02-2022 Continuous pulse oximetry [facility] Start: 08-02-2022 Elevation of head of bed [facility] Start: 08-02-2022 Exercises [facility] Start: 08-02-2022 Implementation of planned interventions [facility] Start: 08-02-2022 Notification of physician [facility] Start: 08-02-2022 Tobacco use cessation education [facility] Start: 08-01-2022 Catheterization of vein [facility] Start: 08-01-2022 Referral to gastroenterology service [facility] Start: 07-31-2022 Physiotherapy of chest [facility] Start: 07-30-2022 Chest 1 View (Portable) Chest 1 View (Portable) [facility] Start: 07-30-2022 XR Chest Single view [facility] Start: 07-29-2022 Speech therapy assessment [facility] Start: 07-29-2022 Introduction of urinary catheter [facility] Start: 07-29-2022 Urinary bladder residual urine study [facility] Start: 07-29-2022 Following clinical pathway protocol [facility] Start: 07-29-2022 Ambulation without limitation [facility] Start: 07-29-2022 Assessment of risk of venous thromboembolism [facility] Start: 07-29-2022 Catheterization of vein [facility] Start: 07-29-2022 Inhalation therapy procedure [facility] Start: 07-29-2022 Insertion of catheter into peripheral vein [facility] Start: 07-29-2022 Measuring intake and output [facility] Start: 07-29-2022 Oxygen therapy [facility] Start: 07-29-2022 Providing care according to standard [facility] Start: 07-29-2022 Referral to occupational therapist [facility] Start: 07-29-2022 Referral to service [facility] Start: 07-29-2022 Respiratory secretion precautions [facility] Start: 07-29-2022 Legionella pneumophila Ag [Presence] in Urine [facility] Start: 07-29-2022 Streptococcus pneumoniae antigen assay [facility] Start: 07-29-2022 Verification routine [facility] Start: 07-29-2022 Admission procedure [facility] Start: 07-29-2022 End: 07-29-2022 [facility] Start: 07-29-2022 Blood culture [facility] Start: 07-29-2022 End: 07-30-2022 [facility] Start: 07-29-2022 Patient referral to dietitian [facility] Start: 04-27-2022 Anes integ musc & nrv head neck&posterior trunk ANESTH HEAD/NECK/PTRUNK [facility] Start: 04-27-2022 Revj/rmvl implanted spinal neurostim generator REVISE/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 NEURORECEIVER [facility] Start: 04-27-2022 Patient discharge [facility] Amphetamines [Presen ce] in Urine by Screen method >1000 ng/mL [facility] Bacteria identified in Blood by Culture Blood Culture [facility] Benzodiazepine measu rement, urine [facility] Cocaine measurement, urine [facility] Ethanol [Mass/volume ] in Serum or Plasma [facility] fentaNYL [Presence] in Urine by Screen method [facility] Folate [Moles/volume ] in Serum or Plasma [facility] Hemoglobin A1c/Hemoglobin.total in Blood [facility] Influenza virus type s A and B and subtypes panel - Respiratory specimen [facility] Lactic acid measurement [facility] Legionella pneumophi la Ag [Presence] in Urine [facility] Magnesium [Mass/volu me] in Serum or Plasma [facility] Magnesium measurement [facility] Methadone measurement, urine [facility] Patient Education [facility] Work Phone: Patient referral [facility] Work Phone: Phencyclidine [Prese nce] in Urine [facility] Procalcitonin [Mass/ volume] in Serum or Plasma [facility] Urine cannabinoid measurement [facility] Urine opiate measurement [facility] Vitamin B12 measurement [facility] Vitamin D, 25-hydrox y measurement [facility] Immunizations Immunization Date Immunization Notes Care Provider Claudy roberts 11-16-2023 influenza, injectabl e, quadrivalent, preservative free Dr. Harish Luis MD Work Phone: [facility] 06-27-2021 Covid ([employer]) Dr. Harish Luis Work Phone: [facility] 03-14-2021 Covid ([employer] Hans[employer]) Dr. Harish Luis Work Phone: [facility] 12-27-2020 influenza, injectabl e, quadrivalent, preservative free Dr. Harish Luis Work Phone: [facility] 12-27-2020 influenza, seasonal, injectable Dr. Harish Luis Work Phone: [facility] 05-27-2020 Covid ([employer] Hans[employer]) Dr. Harish Luis Work Phone: [facility] 01-20-[address] Harish Luis Work Phone: [facility] 12-29-2019 influenza, injectabl e, quadrivalent, preservative free Dr. Harish Luis Work Phone: [facility] 12-29-2019 influenza, seasonal, injectable Dr. Harish Luis Work Phone: [facility] 11-13-[address] Harish Luis Work Phone: [facility] 04-07-2019 influenza, injectabl e, quadrivalent, preservative free Dr. Harish Luis Work Phone: [facility] 04-07-2019 influenza, seasonal, injectable Dr. Harish Luis Work Phone: [facility] 12-17-2017 influenza, injectabl e, quadrivalent, preservative free Dr. Harish Luis Work Phone: [facility] 12-17-2017 influenza, seasonal, injectable Dr. Harish Luis Work Phone: [facility] 11-29-2016 influenza, injectabl e, quadrivalent, preservative free Dr. Harish Luis Work Phone: [facility] 11-29-2016 influenza, seasonal, injectable Dr. Harish Luis Work Phone: [facility] Payers Date Payer Category Payer Self-pay [id number] 2016 Medicare [id number] Unknown [id number] 2.16.8 [id number] Unknown [id number] 2.16.8 40.1.954251.3.579.2.462 Unknown [id number] 2.16.8 40.1.783084.3.579.2.462 Unknown [id number] 2.16.8 40.1.863983.3.579.2.462 Unknown [id number] 2.16.8 40.1.000536.3.579.2.462 Unknown [id number] 2.16.8 40.1.945841.3.579.2.462 Unknown [id number] 2.16.8 40.1.277723.3.579.2.462 Unknown [id number] 2.16.8 40.1.579346.3.579.2.462 Unknown [id number] 2.16.8 40.1.132474.3.579.2.462 Unknown [id number] 2.16.8 40.1.606979.3.579.2.462 Unknown [id number] 2.16.8 40.1.730275.3.579.2.462 Unknown [id number] 2.16.8 40.1.349253.3.579.2.462 Unknown [id number] 2.16.8 40.1.403175.3.579.2.462 Unknown [id number] 2.16.8 40.1.030039.3.579.2.462 Unknown [id number] 2.16.8 40.1.247432.3.579.2.462 Unknown [id number] 2.16.8 40.1.415783.3.579.2.462 Unknown [id number] 2.16.8 40.1.913786.3.579.2.462 Unknown [id number] 2.16.8 40.1.027484.3.579.2.462 Unknown [id number] 2.16.8 40.1.943381.3.579.2.462 Unknown [id number] 2.16.8 40.1.906796.3.579.2.462 Unknown [id number] 2.16.8 40.1.167396.3.579.2.462 Unknown [id number] 2.16.8 40.1.642597.3.579.2.462 Unknown [id number] 2.16.8 40.1.726369.3.579.2.462 Social History Date Type Detail Facility Start: 02-17-2020 End: 07-30-2023 Tobacco smoking status IDIS Unknown if ever smoked [facility] Start: 02-17-2020 None [facility] Start: 02-17-2020 Spouse/ Signif icant Other [facility] Start: 02-17-2020 Vapor [facility] Start: 1950 Sex Assigned At Female [facility] Start: 06-04-2024 End: 09-29-2024 Tobacco smoking status NHIS Smokes tobacco daily (finding) [facility] Start: 06-04-2024 Sex Female (finding) [facility] NEGATED: Highlighted row [facility] Medical Equipment Procedure Code Equipment Code [...] EXPLANT OF NEVRO STIMULATOR FDA Start: 04-27-2022 FDA Start: 04-27-2022 FDA Start: 04-27-2022 Goals Date Patient Goal Desired Activity /State Functional Status Date Assessment Result Facility 10-03-2024 Functional status Ambulates;Bathroom Priv ilege [facility] Work Phone: 09-29-2024 Functional status Ambulates;Bathroom Priv ilege [facility] Work Phone: 09-27-2024 Functional status Rolling Walker [facility] Work Phone: 09-22-2024 Functional status Standby Assist [facility] Work Phone: 09-22-2024 Functional status Bedrest [facility] Work Phone: 08-29-2024 Functional status Ambulates [facility] Work Phone: 11-04-2022 Functional status Ambulates [facility] Work Phone: 10-14-2022 Functional status Ambulates [facility] Work Phone: 08-03-2022 Functional status Ambulates;Chair [facility] Work Phone: Mental Status Date Assessment Result Facility 10-02-2024 Cognitive function Voice/Name [facility] Work Phone: 09-29-2024 Cognitive function Voice/Name [facility] Work Phone: 09-27-2024 Cognitive function Level Of Cons ciousness Awake;Alert;Appropriate;Follow s Commands [facility] Work Phone: 09-22-2024 Cognitive function Appropriate;Cooperativ [facility] Work Phone: 09-22-2024 Cognitive function Voice/Name [facility] Work Phone: 09-21-2024 Cognitive function Level Of Cons ciousness Awake;Alert;Appropriate;Follow s Commands [facility] Work Phone: 08-29-2024 Cognitive function Voice/Name [facility] Work Phone: 08-27-2024 Cognitive function Voice/Name [facility] Work Phone: 07-30-2023 Cognitive function Awake;Lethargic [facility] Work Phone: 11-04-2022 Cognitive function Voice/Name [facility] Work Phone: 11-01-2022 Cognitive function Level Of Cons ciousness Awake;Follows Commands;Disoriented [facility] Work Phone: 10-13-2022 Cognitive [facility]: 10-13-2022 Cognitive function Arousable To Voice/Nam e [facility] Work Phone: 10-13-2022 Cognitive function Level Of Cons ciousness Awake;Alert;Appropriate;Follow s Commands [facility] Work Phone: 08-03-2022 Cognitive function Appropriate;Cooperativ [facility] Work Phone: 08-03-2022 Cognitive function Voice/Name [facility] Work Phone: 04-27-2022 Cognitive function Voice/Name [facility] Work Phone: Clinical Notes 10-13-2022 to 12-29-2024 Note Date & Type Note Facility 12-29-2024 Note HNO ID: [id number] Author: NICHOL CASAREZ, PT Service: ? Author Type: Physical Therapist Type: Progress Notes Filed: 12/30/2024 09:40 Note Text: Episode Visit Count: 1 Therapist That Will Accept/Oversee The Plan Of Care: Nichol Casarze Start of Care Date: 12/29/24 Onset Date: 10/29/24 Plan of Care Certification Date: 12/29/24 Next Certification Due Date: 02/09/25 Patient Identified by Name and Date of : Yes REHABILITATION AND SPORTS THERAPY PHYSICAL THERAPY EVALUATION PLAN OF CARE: Assessment: Carol David presents with diagnosis of LBP, scoliosis, and R shoulder pain that interferes with walking, lifting (lifting a cup of coffee) . The patient presents with impairments in ADL's, gait, independence in exercise, joint mobility, overall function, patient reported outcome measures, posture, range of motion, strength, symptom management, and tissue tenderness. PROMIS? (Patient-Reported Outcomes Measurement Information System) scores were reviewed and identified as a rehabilitation concern. Prognosis for therapy is Fair due to: chronic nature of impairments, coping skills, clinical presentation, poor historian, memory deficits, limited tolerance to activity . The patient will benefit from skilled therapy services to meet the goals established for this plan of care as noted below. Classification Pain Mechanism Classification: Nociceptive Goals for Episode of Care: established 12/29/24 [place] in home exercise program. Patient will decrease pain to 1-2/10 with functional activities to allow patient to improve ambulation, transfers, and standing tolerance for ADLs. Patient will increase active ROM of R shoulder flexion to 150 degrees or greater to allow pt to to improve performance of ADLs. Perform standing for 5-10 minutes with decreased report of symptoms/pain in 6 weeks. Patient Goals: reduce R shoudler pain, reduce LBP, and reduce fall risk Time Frame for Goals and Treatment : 02/09/25 Planned Interventions, Frequency, and Duration: Current Frequency: 1x/week Duration: 6 weeks Total Number of Visits Planned: 6 Planned Treatment Interventions: Self-custodial management (26462), Gait Training (45197), Therapeutic activities (26550), Neuromuscular re-education (23280), Therapeutic exercise (42891), Manual therapy (51817) PLAN FOR NEXT VISIT: assess LBP, and possibly gait/amb. with SC, assess symptom response to R shoulder AAROM using [place]. Patient demonstrates fair understanding of plan of care and treatment. The above goals and plan of care were discussed and agreed upon by patient/family. SUBJECTIVE: for R shoulder pain that onset as a result of a fall a couple mo. ago per pt. report. Pt. slipped and hit the corner of a cupboard. Pt. did not go to the hospital or seek medical attention until about a month after the fall. Denies falls since this onset. Presents today with SC. Pt. reports frequent hospitalizations, most recent episode being about a month ago. Somewhat limited historian, she is not sure if she was sent here for her shoulder. Patient Goals: reduce R shoudler pain, reduce LBP, and reduce fall risk Functional Limitations: walking, lifting (lifting a cup of coffee) Prior Level of Function: Independent without limitations Intake Information: Prescription present Previous Treatment: None Falls Interview: Uses an assistive device, Fall with injury in the last year Red Flags Vertebral Fracture Red Flags: Female, Age >70 Vertebral Fracture Clinical Reasoning: Proceed with caution due to the above (1-2) risk factors Abdominal Aortic Aneurysm Red Flags: Age >60 Abdominal Aortic Aneurysm Clinical Reasoning: Proceed with caution Cancer Red Flags: Age >50 or <20 Cancer Clinical Reasoning: Proceed with caution Infection Clinical Reasoning: No identified risk factors. Cauda Equina Syndrome Clinical Reasoning: No identified risk factors. Red Flags - Cervical Cancer Red Flags: Age >50 or <20 Cancer Clinical Reasoning: Proceed with caution Infection Clinical Reasoning: No identified risk factors. Spine History Symptoms Since Onset: Worsening Pain is Worse Always: On the Move Pain is Better Always: Rest Sleep Affected by Pain: Pain keeps from falling asleep Pain: Pain Pain Level: 10 Pain Location: Back Description: Aching Frequency: Continuous Additional Pain Information : Location 2 Pain Level 2: 0 Pain Location 2: Shoulder - Right Description 2: Aching Frequency 2: At rest Post Treatment Pain Post Treatment Pain Level: 6 Post Treatment Pain Location: Shoulder - Right Post Treatment Pain Description: Aching Post Treatment Pain Score 2: 10 Post Treatment Pain Location 2: Back Post Treatment Pain Description 2: Aching PROMIS Scales 12/29/2024 Higher is Better Phys Func - T Score 37 (moderate dysfunction) Phys Func - Percentile 10 Self-Eff Symptom - T Score 44 (Average) Self-Eff Symptom - Per (more content not included)... [facility] 12-11-2024 Note HNO ID: [id number] Author: SHERMAN PASTRANA APRN.CLEANER Service: ? Author Type: Nurse Specialist Type: Progress Notes Filed: 12/11/2024 14:02 Note Text: Subjective Patient ID: Carol is a 74 year old female who presents for Establish Care. HPI The patient is a 74-year-old female with chronic low back and shoulder pain, gastroesophageal reflux disease, anxiety, and depression, presenting to establish care and for medication refills. Presents today to establish care with Alesha Boogie MD Previous PCP: Dr. Luis Last seen: one month ago, also recent hospital admission for debility and failure to thrive falls. Swallow study was completed mild AR. She was advised to decrease her dose of clonazepam and buspirone. She left AMA. See scanned documents. Former smoker 40 pack years Back Pain: - Carol David has chronic low back pain, previously managed with a spinal cord stimulator. - Carol tried gabapentin with no relief. - Carol has really bad scoliosis. - Carol denies recent falls since discharge from a recent hospital stay. Shoulder Pain: - Carol fractured her shoulder a few months ago; persistent pain. - Carol was last seen by an customer management specialist at [facility] 2 months ago; advised to take Motrin, which provided no relief. - No imaging performed; Craol was told surgery would require a lengthy recovery. - Carol denies current physical therapy for her shoulder. Anxiety and Depression: - Currently managed with clonazepam 1 mg TID and doxepin 75 mg daily. - Recent reduction in doxepin dosage by previous physician, leading to increased difficulty falling asleep. - Carol reports situational problems at home contributing to her anxiety and depression. - Carol previously saw a counselor, but is not currently in therapy. GERD: - Worsening symptoms, managed with prescription PPI - Carol has occasional dysphagia, particularly with certain foods like noodles. - Carol denies aspiration or feeling of getting food in her lungs. Cough: - Carol reports a chronic wet cough, described as congested. Currently vapes. Family History: - Carol's mother had heart disease, CVA, and diabetes. - Carol's father had cancer. Social History: - Carol is a former smoker, quit 9 years ago after 40 years of smoking half a pack per day. - Carol currently uses a vape with no nicotine. Medication Refills: - Carol requests refills for clonazepam and doxepin. ROS Cardiovascular: (+) palpitations Respiratory: (+) productive cough, (-) aspiration Gastrointestinal: (+) gastroesophageal reflux, (+) intermittent dysphagia Musculoskeletal: (+) shoulder pain, (+) low back pain, (-) falls Neurological: (+) arm weakness Psychiatric: (+) anxiety, (+) depressed mood, (+) insomnia Objective BP 124/82 Pulse 91 Resp 16 Ht 148.6 cm (4' 10.5) Wt 41.7 kg (91 lb 14.9 oz) SpO2 95% BMI 18.89 kg/m? Physical Exam Vitals and nursing note reviewed. Constitutional: Appearance: Normal appearance. HENT: Head: Normocephalic and atraumatic. Right Ear: Decreased hearing noted. Left Ear: Decreased hearing noted. Eyes: Conjunctiva/sclera: Conjunctivae normal. Neck: Thyroid: No thyroid mass or thyromegaly. Vascular: Normal carotid pulses. No carotid bruit. Cardiovascular: Rate and Rhythm: Normal rate and regular rhythm. Pulses: Carotid pulses are 2+ on the right side and 2+ on the left side. Radial pulses are 2+ on the right side and 2+ on the left side. Pulmonary: Effort: Pulmonary effort is normal. Breath sounds: Normal breath sounds. Musculoskeletal: Right lower leg: No edema. Left lower leg: No edema. Comments: +scoliosis Skin: General: Skin is warm and dry. Neurological: General: No focal deficit present. Mental Status: She is alert and oriented to person, place, and time. 1. Gastroesophageal reflux disease, unspecified whether esophagitis present (K21.9) - GERD symptoms worsening despite current PPI 2. Failure to thrive in adult (R62.7) 3. Debility (R53.81) 4. Frequent falls (R29.6) 5. Dysphagia, unspecified type (R13.10) - Recent hospitalization for frequent falls; no falls reported since discharge. - Dysphagia with occasional choking episodes. - Continue to use walker at home and cane when going out. 6. Anxiety (F41.9) 7. Insomnia, unspecified type (G47.00) - Anxiety and insomnia previously managed with clonazepam and doxepin. - Continue clonazepam at reduced dose as recommended at hospital discharge; educated on rationale for dose reduction. - Continue doxepin at current dose. This had already been reduced from 150 to 75 mg at discharge from the hospital. 8. Chronic low back pain, unspecified back pain laterality, unspecified whether sciatica present (M54.50) 9. Chronic right shoulder pain (M25.511) 10. Scoliosis, unspecified scoliosis type, unspecified spinal region (M41.9) (more content not included)... [facility] 10-03-2024 Note [facility] 10-03-2024 History and physi kallie note Note Date/Time October 03, 2024 8:55am [facility] Medical Records Department [address] [place] [address] History & Physical Exam 09/29/241925 MR#: [id number] Acct: [id number] Name: CAROL DAVID Rep #:[id number] : 1950 74 From: Harish Luis MD PCP: Dr. Harish Luis MD Status:ADM I N Location: TCU [place] [address] HPI - General General Date of Admission: 09/29/24 Date of Service: 09/29/24 Chief Complaint: Here for rehabilitation. HPI Narrative CAROL DAVID, is a 74 Female who presents with following 09/27/2024 [facility] ED falls. Fell, hit head, no loss of consciousness, cough x 6 months. Not doing well at home. CT brain negative, Chest bilateral lower lobe consolidation, urinalysis negatie. 09/27/2024 Admit [facility]. PT/OT/CM for TCU. ST, Levaquin/Flagyl for aspiration pneumonia. 09/28/2024 No acute events overnight, SNF recommended. PT/OT TCU. 09/29/2024 Admit to TCU with debility, here for rehabilitation, strengthening, prior to discharge home. [facility] Medical History (Updated 09/29/24 @ 19:[address] Harish Luis MD) Anxiety and depression Fracture of humeral head Falls Pulmonary emboli Hypoxia Aspiration pneumonia Closed head injury Vitamin D deficiency Irritable bowel syndrome without [...] mg tablet 7.5 mg PO BID ANXIETY 09/29/24 08:15 History clonazepam 1 mg tablet 0.5 mg (1/2 x 1 mg) PO BID A NXIETY 09/22/24 09/29/24 08:15 Rx 14 days #14 tabs doxepin 150 mg capsule 150 mg PO QHS ANXIETY 30 da ys #30 09/22/24 09/28/24 21:25 Rx caps omeprazole 40 mg capsule,delayed 40 mg PO DAILY GERD 3 0 days #30 09/22/24 09/29/24 08:10 Rx release caps acetaminophen 325 mg tablet 650 mg (2 x 325 mg) PO Q4H PRN PRN 09/29/24 09/28/24 23:45 Rx Fever, pain 1-12/26 #0 tabs aluminum-mag hydroxide-simethicone 30 ml PO Q6H PRN VT N Gastric 09/29/24 Unknown Rx 400 mg-400 mg-40 mg/5 mL oral susp Burning #0 mL (Mag-Al Plus Extra Strength) lidocaine 5 % topical patch 1 patch topical 2200 Pain #0 ea 09/29/24 09/28/24 21:10 Rx melatonin 3 mg tablet 3 mg PO QHS PRN PRN Insomnia #0 09/29/24 Unknown Rx tabs sennosides 8.6 mg-docusate sodium 2 tab PO BID PRN PRN Constipation 09/29/24 Unknown Rx 50 mg tablet (Stimulant Laxative #0 tabs Plus) Allergy/AdvReac Type Severity Reaction Status Date / Time Penicillins Allergy Rash Verified 09/27/24 12:28 Family History Mother Hypertension CVA (cerebral vascular [...] with a cane ROS Constitutional Constitutional: Reports weakness; Denies chills, fever(s) or weight gain ENT HEENT: Denies headache(s), nasal congestion or nasal discharge Cardiovascular Cardiovascular: Denies chest pain or palpitations Respiratory/Chest Respiratory/Chest: Denies cough, excessive phlegm production or shortness of breath with exertion Gastrointestinal Gastrointestinal: Denies abdominal pain, nausea or vomiting Genitourinary Genitourinary: Denies dysuria Musculoskeletal Musculoskeletal: Denies joint pain or joint swelling Integumentary Integumentary: Denies rash or wounds Neurologic Neurologic: Denies focal weakness, numbness or tingling Psychiatric Psychiatric: Denies anxiety, auditory hallucinations, depression, homicidal ideation or suicidal ideation Vital Signs Vital Signs Vital Signs: 09/29/24 15:51 09/29/24 15:51 Temperature 98.1 F Temperature Source Temporal Pulse Rate 90 95 Pulse Rhythm Regular Pulse Strength Normal (2+) Respiratory Rate 18 18 Respiratory Effort Normal Blood Pressure 137/70 H Blood Pressure Mean 92 Blood Pressure Source Monitor Blood Pressure Position Semi-Fowlers Blood Pressure Location Right Arm Oxygen Delivery Method Room Air Room Air Weight Weight: 44.8 kg Body Mass Index (BMI) 18.6 Physical Exam Const alert General Appearance: cooperative HEENT normocephalic Eyes PERRL and EOMs intact bilaterally Neck supple, no JVD and no carotid bruits Resp normal respiratory effort, normal air movement and clear to auscultation bilaterally Cardio regular rate and regular rhythm GI normal to inspection, nondistended, normoactive bowel sounds, non-tender and non-distended Extremity normal capillary refill General Extremity: Negative for edema Skin no rashes or lesions noted General Skin Exam: no breakdown Psych affect normal Appearance: appropriate Assessment & Plan Assessment/Plan (1) Debility: (2) Multiple falls: (3) Adult failure to thrive: (4) Anxiety: (5) Insomnia: (6) GERD (gastroesophageal reflux disease): PLAN: Plan 74 year old female with below past medical history hospitalized for falls, failure to thrive, admitted to TCU with debility, here for rehabilitation, strengthening, prior to discharge home with . * Debility - PT/OT. * Dysphagia - ST. * Pain - Tylenol 1000mg q6 prn pain (1-10), Lidoderm 1 patch td daily. * Bowel - senna/colace 1 tablet bid, Magnesium citrate 300mL daily prn. * Adult immunization - Administer pneumonia vaccine, covid vaccine, flu vaccine as appropriate. * DVT prophylaxis - Hold, frequent falls. The following psychotropic medication was present on admission: Buspar 7.5mg bid. Psychotropic medication therapy is indicated for a diagnosis of: Anxiety. Based on my clinical evaluation, continuation of the medication is necessary at this time. Gradual dose reduction plan (select one): ____ GDR will be attempted. Will monitor patient symptoms and behaviors in response to GDR. __x__ GRD contraindicated. 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 The following psychotropic medication was present on admission: Clonazepam 0.5mgbid. Psychotropic medication therapy is indicated for a diagnosis of: Anxiety. Based on my clinical evaluation, continuation of the medication is necessary at this time. Gradual dose reduction plan (select one): __x__ GDR will be attempted. Will monitor patient symptoms and behaviors in response to GDR. ____ GRD contraindicated. Reason contraindicated: The following psychotropic medication was present on admission: Doxepin 75mg qhs. Psychotropic medication therapy is indicated for a diagnosis of: Insomnia. Based on my clinical evaluation, continuation of the medication is necessary at this time. Gradual dose reduction plan (select one): __x__ GDR will be attempted. Will monitor patient symptoms and behaviors in response to GDR. ____ GRD contraindicated. Reason contraindicated: 07/14/25 1939 <Electronically signed by Harish Luis MD> Cosigner Signature (if applicable): CC: Dr. Harish Luis MD~ Signed ADDENDUM by Dr. Harish Luis MD on 09/30/24 at 1710 Addendum Tinea Corporis - Lotrisone topical bid under right breast. 09/30/24 171<Electronically signed by Harish Luis MD> Cosigner Signature (if applicable): cc: Dr. Harish Luis MD ~* Signed ADDENDUM by Dr. Harish Luis MD on 10/01/24 at 1721 Addendum GERD - Pantoprazole 40mg daily. 10/01/24 172<Electronically signed by Harish Luis MD> Cosigner Signature (if applicable): cc: Dr. Harish Luis MD ~* Signed ADDENDUM by Dr. Harish Luis MD on 10/02/24 at 0733 Addendum Malnutrition - consult Dietary. 10/02/24 0733<Electronically signed by Harish Luis MD> Cosigner Signature (if applicable): cc: Dr. Harish Luis MD ~* Signed ADDENDUM by Dr. Harish Luis MD on 10/02/24 at 1614 Addendum Tobacco Abuse - Nicotine patch 21mg td daily. 10/02/24 161<Electronically signed by Harish Lius MD> Cosigner Signature (if applicable): cc: Dr. Harish Luis MD ~* Signed ADDENDUM by Dr. Harish Luis MD on 10/03/24 at 0855 Addendum I spoke with Carol today. She is adamant about going home. She continues to be unsteady and at risk for falls. I told her she would have to sign out AGAINST MEDICAL ADVICE to go home. Her mental status is fluctuating, but currently she is competent. Nursing staff will contact her Jose, and if he is willing to take her home, she will sign out AGAINST MEDICAL ADVICE, furthermore, Carol has stated she would like to fire me as her U doctor and family doctor. 10/03/24 0855<Electronically signed by Harish Luis MD> Cosigner Signature (if applicable): cc: Dr. Harish Luis MD ~* Signed [facility] Work Phone: 1(295) 206-344807-17-2025 Progress note Author Gurmeet Zartae [facility] Note Date/Time October 02, 2024 5:51 pm [facility] Medical Records Department [address] [place] [address] Progress Note 10/02/24 1749 MR#: [id number] Acct: [id number] Name: CAROL DAVID Rep #:[id number] : 1950 74 From: Gurmeet Zarate DO PCP: Dr. Harish Luis MD Status:ADM I N Location: [place] [address] Progress Note Esophageal Clearance: Esophageal retention (lower esophagus retention - GI referral recommended) Physical Exam Const alert, oriented x3, no apparent distress and healthy appearing General Appearance: cooperative GI normal to inspection, nondistended, normoactive bowel sounds, soft to palpation,non-tender and non-distended Percussion: normal to percussion Rectal Exam: deferred Assessment & Plan Assessment/Plan (1) Dysphagia: QUALIFIERS: Dysphagia type: oropharyngeal phase Qualified Code(s): R13.12 - Dysphagia, oropharyngeal phase PLAN: The Differential diagnosis for her orophageal and esophageal dysphagia in the setting of weight loss. She has had Botox in the past for esophageal achalasia. Lysed late esophageal malignancy, myasthenia gravis, CVA, achalasia and COPD. She will undergo an upper endoscopy to evaluate the upper esophagus. NPO past midnight. She was explained alternatives, risk, benefits include not withstanding bleeding, infection, sepsis, perforation, need for return to . She will have ashok ASA of 3. Visit Charges Inpatient E&M: 09847 Subs Hosp L3 10/02/24 175 <Electronically signed by Gurmeet Zarate DO> Gurmeet Zarate DO Cosigner Signature (if applicable): CC: ~ Signed [facility] Work Phone: [phone] 349-849207-17-2025 Progress note Author Adriana Ponce [facility] Note Date/Time October 02, 2024 10:1 1am [facility] Medical Records Department [address] [place] [address] Progress Note - Pharmacy 10/02/24 0748 MR#: [id number] Acct: [id number] Name: CAROL DAVID Rep #:[id number] : 1950 74 From: Adriana Ponce PCP: Dr. Harish Luis MD Status:ADM I N Location: [place] [address] Documented by User: Adriana Ponce 10/02/24 10:11 TCU RX Drug Regimen Review Subjective/Objective Subjective/Objective Subjective: TCU Admission. 74 YOF presented to the ER with falls. Hospitalized for falls, failure to thrive. Admitted to TCU with debility for strengthening and rehabilitation. Objective: Allergies Penicillins Allergy (Verified 09/27/24 12:28) Rash Current Medications Generic Name Dose Route Start Last Admin Trade Name Freq PRN Reason Stop Dose Admin Acetaminophen 1,000 mg 09/29/24 19:21 Acetaminophen 500 Mg Tablet PO Q6H PRN PRN Pain Score 1-10 Buspirone HCl 7.5 mg 09/29/24 22:00 10/01/24 20:37 Buspirone 15 Mg Tablet PO 7.5 mg BID JEANNIE Administration Clonazepam 0.5 mg 09/29/24 22:00 10/01/24 20:38 Clonazepam 0.5 Mg Tablet PO 10/06/24 22:01 0.5 mg BID JEANNIE Administration Clonazepam 0.25 mg 10/07/24 10:00 Clonazepam 0.5 Mg Tablet PO 10/14/24 10:01 BID JEANNIE Clonazepam 0.25 mg 10/15/24 22:00 Clonazepam 0.5 Mg Tablet PO 10/22/24 22:01 QHS JEANNIE Clotrimazole 1 applic 09/30/24 22:00 10/01/24 20:45 Clotrimazole/Betamethasone 1 Tube TOPICAL 1 applic BID JEANNIE Administration Protocol Doxepin HCl 75 mg 09/29/24 22:00 10/01/24 20:38 Doxepin Hcl 25 Mg Capsule PO 10/06/24 22:01 75 mg QHS JEANNIE Administration Doxepin HCl 50 mg 10/07/24 22:00 Doxepin Hcl 50 Mg Capsule PO QHS JEANNIE Doxepin HCl 25 mg 10/15/24 22:00 Doxepin Hcl 25 Mg Capsule PO 10/22/24 22:01 QHS JEANNIE Lidocaine 1 patch 09/29/24 22:00 10/01/24 19:25 Lidocaine 5% Patch TOPICAL Not Given [facility] Protocol Magnesium Citrate 300 ml 09/29/24 19:21 Magnesium Citrate 300 Ml PO DAILY PRN CONSTIPATION Pantoprazole Sodium 40 mg 10/01/24 18:00 10/01/24 18:03 Pantoprazole Sodium 40 Mg Tablet PO 40 mg DAILY JEANNIE Administration Polysaccharide Iron Complex 150 mg 10/01/24 10:00 10/01/24 08:02 Iron Polysaccharide Complex 150 Mg Capsule PO 150 mg DAILY JEANNIE Administration Senna/Docusate Sodium 1 tablet 09/29/24 22:00 10/01/24 20:46 Senna/Docusate Sodium 1 Tablet PO Not Given BID JEANNIE Sodium Chloride 10 - 40 ml 09/29/24 15:55 0.9% Saline Lock 10 Ml Syringe IV UD PRN SALINE FLUSH Tuberculin PPD 0.1 ml 10/07/24 10:00 Tuberculin,Purif.Prot.Deriv. 50 Tu/Ml Vial ID 10/07/24 10:01 X1 ONE Problem List Weight loss (Acute) Dysphagia (Acute) GERD (gastroesophageal reflux disease) (Acute) Insomnia (Acute) Anxiety (Acute) Multiple falls (Acute) Adult failure to thrive (Acute) Vital Signs Temp Pulse Resp BP Pulse Ox O2 Del Method 98.3 F 93 16 123/73 H 94 Room Air 10/01/24 09:00 10/01/24 09:00 10/01/24 09:00 10/01/24 09:00 10/01/24 09:00 10/01/24 10:00 Oxygen Delivery Method Room Air Weight: 46.72 kg Body Mass Index (BMI) 19.4 Sodium 143 mmol/L (133-145) 09/30/24 05:04 Potassium 3.4 mmol/L (3.3-5.1) 09/30/24 05:04 Chloride 107 mmol/L (98-108) 09/30/24 05:04 Carbon Dioxide 26.4 mmol/L (21.0-32.0) 09/30/24 05:04 Anion Gap 10 (5-15) 09/30/24 05:04 BUN 9 mg/dL (4-19) 09/30/24 05:04 Creatinine 0.76 mg/dL (0.70-1.20) 09/30/24 05:04 Est GFR (MDRD) Non-Af 83 (>60) 09/30/24 05:04 BUN/Creatinine Ratio 12.3 RATIO (10-20) 09/30/24 05:04 Glucose 106 mg/dL (70-99) H 09/30/24 05:04 Assessment/Plan: 1. Pain: acetaminophen 1000mg PO Q6H PRN pain 1-10 and lidocaine 5% patch 1 patch topical daily. No PRN doses given. Please continue to monitor for increased pain, PRN usage and rash. 2. Bowel: senna/docusate 1T PO BID and magnesium citrate 300mL PO daily PRN constipation. No PRN doses given. Please continue to monitor for constipation and PRN usage. Resident has refused all senna/docusate doses. Please consider changing to PRN constipation. Thanks. Last documented bowel movement was 09/30/24. 3. GERD: pantoprazole 40mg PO daily. Please continue to monitor for S/S of GERD and diarrhea (Estevan). 4. Tinea Corporis: Lotrisone topical bid under right breast. Please continue to monitor. 5. Iron deficiency: Ferrex 150mg PO daily. Please continue to monitor hemoglobin(Last 10 g/dL), constipation, dark stools and iron studies (09/30/24). Assessment/Plan for indications treated with psychotropic medications: 1. Anxiety: buspirone 7.5mg PO BID. Please continue to monitor for anxiety, dizziness, drowsiness. Monitor for efficacy including resident symptoms, behaviors and indications of distress. Monitor for tolerability including mentalstatus, cognition, excessive sleepiness, withdrawal or decreased participation in activities and decline in physical functioning. Maximize use of nonpharmacologic/behavioral interventions to facilitate dose reduction or discontinuation as appropriate. Please evaluate the appropriateness of GDR unless contraindicated. If appropriate, GDR should be attempted in 2 separate quarters within the first year of use or admission to TCU. If GDR attempted, monitor resident symptoms/behaviors. 2. Anxiety: clonazepam 0.5mg PO BID thru 10/06/24, then 0.25mg PO BID 10/07/24- 10/14/24, then 0.25mg PO QHS 10/15/24 - 10/22/24. Resident on GDR. Monitor for sedation, mental status and cognition. Monitor for falls (risk factor for falls) and implement fall prevention strategies. Monitor for respiratory depression. RR range since admission = 89-105. Monitor for efficacy including resident symptoms, behaviors, withdrawal and indications of distress. Monitor for worsened anxiety. Monitor for tolerability including mental status, cognition, excessive sleepiness, withdrawal or decreased participation in activities and decline in physical functioning. Maximize use of nonpharmacologic/behavioral interventions to facilitate dose reduction or discontinuation as appropriate. 3. Insomnia: doxepin 75mg PO QHS thru 10/06/24, then 50mg 10/07/24-10/14/24, then 25mg 10/15/24-10/22/24. Resident on GDR. Please continue to monitor for excessive daytime drowsiness, insomnia, dementia/delirium (BEERs), anticholinergic side effects (BEERs). Monitor for efficacy including resident symptoms, behaviors andindications of distress. Monitor for tolerability including mental status, cognition, excessive sleepiness, withdrawal or decreased participation in activities and decline in physical functioning. Maximize use of nonpharmacologic/behavioral interventions to facilitate dose reduction or discontinuation as appropriate Medical chart and medication regimen reviewed. The following medication irregularities or issues were identified: 1. Senna/docusate 1T PO BID. Resident has refused all senna/docusate doses. Please consider changing to PRN constipation. Thanks. Date Date of Note: 10/02/24 Documented by User: Dr. Harish Luis MD 10/02/24 10:09 TCU RX Drug Regimen Review Provider Comments Provider responsibility Provider Comments to Recommendations by Pharmacy Agree 10/02/24 1011 <Electronically signed by Adriana Ponce> Adriana Ko Signature (if applicable): 10/02/24 1009 <Electronically signed by Harish Luis MD> CC: ~ Signed [facility] Work Phone: 1([phone]) 354-721107-16-2025 Consult note Author Gladys Anaya [facility] Note Date/Time October 01, 2024 4:39 pm [facility] Medical Records Department [address] [place] [address] Consultation - GI 10/01/24 1029 MR#: [id number] Acct: [id number] Name: CAROL DAVID Rep #:[id number] : 1950 74 From: Gladys qiu NP-C PCP: Dr. Harish Luis MD Status:ADM I N Location: [place] [id number] ADDENDUM by Gurmeet Zarate DO on 10/01/24 at 1639 Addendum 10/01/2024 at 4:00 PM Carol David Seen by nurse practitioner Gladys Anaya The assessment by nurse practitioner Gladys Anaya regarding Carol david on10/01/2024 has been reviewed. The assessment and the proposed plan of care are agreed upon, including need for the evaluation of anemia, weight loss and dysphagia . Further recommendations to follow after she undergoes the procedure. Multi Select Codes Visit Charges Visit Charges: 23394 SNF Init L1 10/01/24 1639<Electronically signed by Gurmeet Zarate DO> Cosigner Signature (if applicable): cc: Dr. Harish Luis MD ~* Signed HPI Consult Data Date of Consult: 10/01/24 HPI Narrative Reason for Consultation: dysphagia HPI Narrative: - c/o postprandial heartburn, improved with Omeprazole 40mg QD - reports she wasnot taking prior to admission - occ. SOB - reports 25-30lb weight loss in the past 3 years - upper denture - loose - lower dentition poor - awaiting implants - c/o oral burning with PO intake, decreasing PO intake - vapes - denies alcohol - denies any N/V - denies any coughing with PO intake - denies dysphagia - denies any odynophagia - ambulates with cane at home, walker in-patient - denies any change in bowel habits - denies any abdominal pain - spoke with [facility] and [facility] Medical History (Updated 10/01/24 @ 11:56 by Gladys Anaya NP-C) Dysphagia Oropharyngeal dysphagia Frequent falls Anxiety and depression Fracture of humeral head Falls Pulmonary emboli Hypoxia Closed head injury Vitamin D deficiency Irritable bowel syndrome without diarrhea Stenosis, cervical spine Chronic cough Allergic rhinitis Insomnia HLD (hyperlipidemia) Movement disorder Gastroparesis Pain from implanted hardware Wears hearing aid [...] mg tablet 7.5 mg PO BID ANXIETY 09/29/24 08:15 History clonazepam 1 mg tablet 0.5 mg (1/2 x 1 mg) PO BID A NXIETY 09/22/24 09/29/24 08:15 Rx 14 days #14 tabs doxepin 150 mg capsule 150 mg PO QHS ANXIETY 30 da ys #30 09/22/24 09/28/24 21:25 Rx caps omeprazole 40 mg capsule,delayed 40 mg PO DAILY GERD 3 0 days #30 09/22/24 09/29/24 08:10 Rx release caps acetaminophen 325 mg tablet 650 mg (2 x 325 mg) PO Q4H PRN PRN 09/29/24 09/28/24 23:45 Rx Fever, pain 1-12/26 #0 tabs aluminum-mag hydroxide-simethicone 30 ml PO Q6H PRN VT N Gastric 09/29/24 Unknown Rx 400 mg-400 mg-40 mg/5 mL oral susp Burning #0 mL (Mag-Al Plus Extra Strength) lidocaine 5 % topical patch 1 patch topical 2200 Pain #0 ea 09/29/24 09/28/24 21:10 Rx melatonin 3 mg tablet 3 mg PO QHS PRN PRN Insomnia #0 09/29/24 Unknown Rx tabs sennosides 8.6 mg-docusate sodium 2 tab PO BID PRN PRN Constipation 09/29/24 Unknown Rx 50 mg tablet (Stimulant Laxative #0 tabs Plus) Allergy/AdvReac Type Severity Reaction Status Date / Time Penicillins Allergy Rash Verified 09/27/24 12:28 Family History Mother Hypertension CVA (cerebral vascular [...] with a cane ROS Constitutional Constitutional: Reports as per HPI Eyes Eyes: Denies blurry vision or change in vision Cardiovascular Cardiovascular: Denies abdominal bloating, edema, nausea or vomiting Gastrointestinal Gastrointestinal: Reports as per HPI Integumentary Integumentary: Denies change in pigmentation, jaundice or unusual bruising Neurologic Neurologic: Reports confusion Psychiatric Psychiatric: Reports change in appetite, confusion and memory loss Endocrine Endocrinology: Denies polydipsia, polyphagia or polyuria Hematologic/Lymphatic Hematologic/Lymphatic: Denies easy bleeding, easy bruising or lymphadenopathy Allergic/Immunologic Allergic/Immunologic: Denies GI upset w/certain foods, urticaria or asthma Physical Exam Const no apparent distress, average body habitus and healthy appearing General Appearance: well developed Orientation / Consciousness: oriented to person, oriented to place and oriented to time Eyes conjunctivae normal Neck General: normal visual inspection Lymph Lymphatic: no lymphadenopathy noted Resp Effort and Inspection: able to speak in complete sentences and symmetric chest movement Auscultation: clear to auscultation bilaterally Cardio regular rate and regular rhythm GI GI Narrative: ABD soft, non-tender, non-distended, BS+ x4 Medical Records Data Attestation: I reviewed the patient's medical records Lab / Micro Data Attestation: I reviewed the patient's lab results. 10/01/24 05:15 09/30/24 05:04 Labs: Laboratory Results - last 24 hr 10/01/24 05:15: Hgb 9.8 L, Hct 30.1 L Micro: Microbiology 09/30/24 14:30 Stool Stool Occult Blood (STEPHANIE) - Final Imaging EGD 11/03/22 - Tortuous esophagus. Abnormal esophageal motility, suspicious for presbyesophagus. Injected with botulinum toxin. Mild Schatzki ring. Dilated. Medium-sized hiatal hernia. Biopsies were taken with a cold forceps for evaluation of eosinophilic esophagitis. MBS 01/04/2024 Retention w/ retrograde flow of liquids and pudding. Pt is a risk for reflux aspiration. Recommendations Diet: Puree Textures and Thin Liquids Meds crushed in applesauce Assessment & Plan Assessment/Plan (1) GERD (gastroesophageal reflux disease): (2) Adult failure to thrive: (3) Dysphagia: QUALIFIERS: Dysphagia type: oropharyngeal phase Qualified Code(s): R13.12 - Dysphagia, oropharyngeal phase (4) Weight loss: PLAN: Plan 74y/o female with chronic oropharyngeal dysphagia, h/o aspiration pneumonia withabnormal esophageal motility (presbyesophagus) tx. w/ botox, mild Schatzki?s ring, and hiatal hernia presents with persistent swallowing dysfunction. PMH Anxiety, depression, GERD, CKD-II, chronic back pain, chronic normocytic anemia,VTE, tobacco use. Recently admitted s/p frequent falls with confusion empirically treated with IV antibiotic therapy for aspiration and discharged to TCU on 09/22/2024 on oral levaquin/flagyl for an additional 5-day course. CXR 09/29/2024 reveals stable bilateral lower lung consolidations (L>R), concerning for chronic aspiration related pneumonitis or recurrent aspiration pneumonia. MBS 01/04/2024 revealing retention and retrograde flow of both liquids and pudding, indicating significant oropharyngeal impairment and risk for aspiration. EGD 10/2022 revealed a tortuous esophagus, motility disorder, and reflux changes, with rare eosinophils on pathology. She is A&Ox3 with intermittent bouts of confusion. She is agreeable to repeat MBS which has been arranged for this afternoon. However, she declines repeat EGDat this time. I did speak with [facility]) and who advised she will be completing a cognitive assessment of patient this morning. Per nursing staff (Vane) she is on a minced, moist diet with thin liquids. She has a history of non-compliance likely exacerbated by cognitive decline. Additionally, poor dentition is also a contributing factor to dysphagia and poor PO intake. Will await cognitive evaluation and MBS before making further recommendations. Continue Omeprazole 40mg daily OOB and up in chair for all meals, avoid laying down for at least 1 hour after meals Elevate HOB Continue diet as recommended by ST Routine oral care and OP dental f/u 10/01/24 1216 <Electronically signed by Gladys PERALTAC> Cosigner Signature (if applicable): CC: Dr. Harish Luis MD~ Signed [facility] Work Phone: [phone]) 448-924507-16-2025 Procedure [facility] 09-29-2024 [facility]07-14-2025 Discharge summary [facility] Medical Records Department [address] [place] [address] Transfer to [facility] MR#: [id number] Acct: [id number] Name: CAROL DAVID Rep #:[id number] : 1950 74 From: Ricardo Padilla MD PCP: Dr. Harish Luis MD Status:ADM I N Certification of patient admission REQUIRED AT TIME OF ADMISSION. I CERTIFY THAT POST-HOSPITAL ECF SERVICES ARE REQUIRED TO BE GIVEN ON AN IN-PATIENT BASIS BECAUSE OF THE ABOVE NAMED PATIENT'S NEED FOR SENIOR LIVING CARE ON A CONTINUING BASIS FOR THE CONDITION(S) FOR WHICH HE/SHE WAS RECEIVING IN-PATIENT HOSPITAL SERVICES PRIOR TO HIS/HER TRANSFER TO THE [facility]. 09/29/24 1455 Diet Diet Order/Speech Therapy: INPATIENT Hospital Diet / Speech Therapy Order(s) 09/27/24 15:57 Diet: Regular - General Food consistency:: Regular Liquid Consistency:: Regular/Thin Type of Dietary Supplement:: Ensure Plus High Protein Diet Comments: 120ml EPHP TID with meals Speech Therapy Comments: regular diet/thin liquids with direct supervision one-to-one Routine Orders/Code Status Code Status: Full Code DC O2, CPAP, BIPAP needs Home O2 Discharge instructions: No Wound(s) abraisions left forearm: Wound Type: open to air Therapies Physical Therapy: Eval and Treat Occupational Therapy: Eval and Treat Problem/Diagnosis (1) Falls frequently: Status: Acute Code(s): R29.6 - Repeated falls (2) Adult failure to thrive: Status: Acute Code(s): R62.7 - Adult failure to thrive Plan Patient is a 74-year-old lady who presented to the emergency department with recurrent falls 1. Adult failure to thrive with recurrent falls ? Patient admitted to regular nursing floor. Patient home meds were reviewed including doxepin and clonazepam dose of which were reduced. Requested for PT OT eval and certified social workers in health care to assist with disposition. Plans for patient to bedischarged to assisted facility pending bed availability 2. History of chronic oropharyngeal dysphagia with previous history of aspiration pneumonia ? Speech therapy consulted 3. GERD ? On PPI 4. Depression with anxiety - Patient is on buspirone doxepin as well as clonazepam dose of the last 2 adjusted 5. Chronic back pain ? Complicating care PT OT as tolerated 6. Anemia ? Secondary to chronic disorder monitoring H&H and transfuse if patient becomes symptomatic or hemoglobin falls below 7 7. Tobacco dependence ? Counseled on cessation, offered nicotine patch for tobacco cravings 8. DVT prophylaxis ? On enoxaparin 10. Suspected severe protein calorie malnutrition ? Consult has been placed to dietitian Time spent in the patient's overall evaluation,decision-making process, review of diagnostic data, adjustment of management, discussion with other providers, nursing nursing and ancillary staff involved in patient's care documentation, 35 Minutes Allergies/Procedures Done in Hospital Allergies Penicillins Allergy (Verified 09/27/24 12:28) Rash Type of Care/Length of Stay Estimated LOS: Convalescent Care Less Than 30 days Type of Care Needed: Skilled Rehab Potential: Good Prognosis: Good Additional Orders/Day of Discharge Day of Discharge: 09/29/24 Dietary and Speech Recommendations Dietitian Recommendations/Changes: Continue regular diet. Will add 120ml EPHP TID with meals. Will monitor weight trends. Discharge Plan Admission Admit Date/Time: 09/27/24 14:48 Attending Provider: Ricardo Padilla Primary Care Provider: Harish Luis Chi Consulting Providers: Anastasia Khan Discharge Orders/Prescriptions Prescriptions: New lidocaine 5 % Adhesive Patch,Medicated 1 patch topical 2199 Qty: 0 0RF Protocol: *Topical Application Instructions APPLICATION INSTRUCTIONS: back alum-mag hydroxide-simeth [Mag-Al Plus Extra Strength] 400-400-40 mg/5 mL Suspension 30 ml PO Q6H PRN PRN (Reason: Gastric Burning) Qty: 0 0RF melatonin 3 mg Tablet 3 mg PO QHS PRN PRN (Reason: Insomnia) Qty: 0 0RF sennosides-docusate sodium [Stimulant Laxative Plus] 8.6-50 mg Tablet 2 tab PO BID PRN PRN (Reason: Constipation) Qty: 0 0RF acetaminophen 325 mg Tablet 650 mg PO Q4H PRN PRN (Reason: Fever, pain 1-12/26) Qty: 0 0RF Continued buspirone 7.5 MG tablet 7.5 mg PO BID clonazepam 1 MG tablet 0.5 mg PO BID 14 Days Qty: 14 0RF Rx Instructions: Please cut back to 0.5 mg BID and follow closely with PCP to have directed taper off given already on buspirone regimen also. omeprazole 40 mg capsule,delayed release(DR/EC) 40 mg PO DAILY 30 Days Qty: 30 0RF Patient Comments: pt states she take the med once a day but not every day doxepin 150 mg capsule 150 mg PO QHS 30 Days Qty: 30 0RF Rx Instructions: Given notable encephalopathy, recurrent aspiration issues, decrease to 150 mgq HS and with PCP direction taper dose over the next several weeks. Discontinued levofloxacin 500 mg tablet 500 mg PO DAILY 5 Days Qty: 5 0RF metronidazole 500 mg tablet 500 mg PO Q8H 5 Days Qty: 15 0RF Referrals / Follow Up: Harish Luis Chi, MD [Primary Care Provider] - Within 2 Weeks Disposition Disposition (needs filled in before D/C Order can be placed): Assisted Facility 09/29/24 6215 Cosigner Signature (if applicable): CC: Dr. Anastasia Khan MD; Dr. Harish Luis MD ~ [facility]07-14-2025 Discharge summary [facility] Medical Records Department [address] [place] [address] Discharge Summary 09/29/24 1442 MR#: [id number] Acct: [id number] Name: CAROL DAVID Rep #:[id number] : 1950 74 From: Ricardo Padilla MD PCP: Dr. Harish Luis MD Status:ADM I N Location: [place] [address] Providers Date of Admission: 09/27/24 Date of Discharge: 09/29/24 Primary Care Physician: Dr. Harish Luis MD Reason For Visit: ADULT FFT, RECURRENT SERIAL FALLS Diagnosis Discharge Diagnosis (1) Falls frequently: Status: Acute Code(s): R29.6 - Repeated falls (2) Adult failure to thrive: Status: Acute Code(s): R62.7 - Adult failure to thrive Plan Patient is a 74-year-old lady who presented to the emergency department with recurrent falls 1. Adult failure to thrive with recurrent falls ? Patient admitted to regular nursing floor. Patient home meds were reviewed including doxepin and clonazepam dose of which were reduced. Requested for PT OT eval and certified social workers in health care to assist with disposition. Plans for patient to bedischarged to assisted facility pending bed availability 2. History of chronic oropharyngeal dysphagia with previous history of aspiration pneumonia ? Speech therapy consulted 3. GERD ? On PPI 4. Depression with anxiety - Patient is on buspirone doxepin as well as clonazepam dose of the last 2 adjusted 5. Chronic back pain ? Complicating care PT OT as tolerated 6. Anemia ? Secondary to chronic disorder monitoring H&H and transfuse if patient becomes symptomatic or hemoglobin falls below 7 7. Tobacco dependence ? Counseled on cessation, offered nicotine patch for tobacco cravings 8. DVT prophylaxis ? On enoxaparin 10. Suspected severe protein calorie malnutrition ? Consult has been placed to dietitian Time spent in the patient's overall evaluation,decision-making process, review of diagnostic data, adjustment of management, discussion with other providers, nursing nursing and ancillary staff involved in patient's care documentation, 35 Minutes Medications at Discharge Home Medications buspirone 7.5 mg tablet 7.5 mg PO BID ANXIETY 02/17/20 clonazepam 1 mg tablet 0.5 mg (1/2 x 1 mg) PO BID ANXIETY 14 days #14 tabs 09/22/24 doxepin 150 mg capsule 150 mg PO QHS ANXIETY 30 days #30 caps 09/22/24 omeprazole 40 mg capsule,delayed release 40 mg PO DAILY 30 days #30 caps 09/22/24 acetaminophen 325 mg tablet 650 mg (2 x 325 mg) PO Q4H PRN PRN Fever, pain 1- 12/26 #0 tabs 09/29/24 aluminum-mag hydroxide-simethicone 400 mg-400 mg-40 mg/5 mL oral susp (Mag-Al Plus Extra Strength) 30 ml PO Q6H PRN PRN Gastric Burning #0 mL 09/29/24 lidocaine 5 % topical patch 1 patch topical 2200 #0 ea 09/29/24 melatonin 3 mg tablet 3 mg PO QHS PRN PRN Insomnia #0 tabs 09/29/24 sennosides 8.6 mg-docusate sodium 50 mg tablet (Stimulant Laxative Plus) 2 tab PO BID PRN PRN Constipation #0 tabs 09/29/24 Physical Exam Narrative GENERAL: cooperative HEENT: Atraumatic; normocephalic EYES; Anicteric, Normal Conjunctiva NECK; supple, normal thyroid, RESPIRATORY: Diminished to auscultation CARDIOVASCULAR: Regular S1 S2, GI: soft, normoactive bowel sounds, : No Renal angle tenderness; EXTREMITIES: No edema, no clubbing, MUSCULOSKELETAL: no muscle wasting NEURO: Awake; no lateralizing signs. SKIN: No Rash PSYCH; Flat affect Weight / BMI Weight Weight: 46.2 kg Body Mass Index (BMI) 19.2 ABG / Lab / Microbiology Data 09/29/24 05:10 09/29/24 05:10 Laboratory: Laboratory Results - last 24 hr 09/29/24 05:10: WBC 4.6, RBC 3.06 L, Hgb 9.5 L, Hct 29.1 L, MCV 95.1, MCH 31.0, MCHC 32.6, RDW Std Deviation 48.3 H, RDW Coeff of Mehnaz 14.0, Plt Count 426, MPV 9.7, Immature Gran % (Auto) 0.400, Neut % (Auto) 47.5, Lymph % (Auto) 36.5, Addison% (Auto) 9.3, Eos % (Auto) 5.4 H, Baso % (Auto) 0.9, Absolute Neuts (auto) 2.2, Absolute Lymphs (auto) 1.68, Sodium 142, Potassium 3.7, Chloride 110 H, Carbon Dioxide 23.3, Anion Gap 9, BUN 9, Creatinine 0.75, Estim Creat Clear Calc 46.56 L, Est GFR (MDRD) Non-Af 83, BUN/Creatinine Ratio 11.6, Glucose 86, Calcium 8.6,Total Bilirubin 0.19, AST 26, ALT 12, Alkaline Phosphatase 80, Total Protein 5.3L, Albumin 2.5 L, Globulin 2.8, Albumin/Globulin Ratio 0.9 Microbiology: Microbiology 09/27/24 13:14 Mucosa - Nose SARS-CoV-2, Influenza & RSV (PCR) - Final D/C Instructions Discharge Activity: Return to Normal Activity Call your doctor if you observe: Fever of 101 or Higher, Shortness of breath, Fainting spells and Chest pain DC O2, CPAP, BIPAP Needs Home O2 Discharge instructions: No Meaningful Use Info Meaningful Use Meaningful Use Diagnoses (Choose all that apply): None applicable Discharge Plan Admission Admit Date/Time: 09/27/24 14:48 Attending Provider: Ricardo Padilla Primary Care Provider: Harish Luis Chi Consulting Providers: Anastasia Khan Discharge Orders/Prescriptions Prescriptions: New lidocaine 5 % Adhesive Patch,Medicated 1 patch topical 2199 Qty: 0 0RF Protocol: *Topical Application Instructions APPLICATION INSTRUCTIONS: back alum-mag hydroxide-simeth [Mag-Al Plus Extra Strength] 400-400-40 mg/5 mL Suspension 30 ml PO Q6H PRN PRN (Reason: Gastric Burning) Qty: 0 0RF melatonin 3 mg Tablet 3 mg PO QHS PRN PRN (Reason: Insomnia) Qty: 0 0RF sennosides-docusate sodium [Stimulant Laxative Plus] 8.6-50 mg Tablet 2 tab PO BID PRN PRN (Reason: Constipation) Qty: 0 0RF acetaminophen 325 mg Tablet 650 mg PO Q4H PRN PRN (Reason: Fever, pain 1-12/26) Qty: 0 0RF Continued buspirone 7.5 MG tablet 7.5 mg PO BID clonazepam 1 MG tablet 0.5 mg PO BID 14 Days Qty: 14 0RF Rx Instructions: Please cut back to 0.5 mg BID and follow closely with PCP to have directed taper off given already on buspirone regimen also. omeprazole 40 mg capsule,delayed release(DR/EC) 40 mg PO DAILY 30 Days Qty: 30 0RF Patient Comments: pt states she take the med once a day but not every day doxepin 150 mg capsule 150 mg PO QHS 30 Days Qty: 30 0RF Rx Instructions: Given notable encephalopathy, recurrent aspiration issues, decrease to 150 mgq HS and with PCP direction taper dose over the next several weeks. Discontinued levofloxacin 500 mg tablet 500 mg PO DAILY 5 Days Qty: 5 0RF metronidazole 500 mg tablet 500 mg PO Q8H 5 Days Qty: 15 0RF Referrals / Follow Up: Harish Luis Chi, MD [Primary Care Provider] - Within 2 Weeks Disposition Disposition (needs filled in before D/C Order can be placed): Assisted Facility Charges/Coding Visit Charges Inpatient E&M: 06222 Disch Hosp >30min 09/29/24 1453 Cosigner Signature (if applicable): CC: Dr. Ricardo Padilla MD; Dr. Harish Luis MD~ Signed [facility] Discharge instructionsAdditional Instructions Date of Discharge: 09/29/24[facility] Work Phone: [phone] 314-593907-14-2025 Progress note [facility] Note Date/Time September 29, 2024 9:03 am [facility] Medical Records Department [address] [place] [address] Progress Note - Hospitalist 09/29/24 0857 MR#: [id number] Acct: [id number] Name: CAROL DAVID Rep #:[id number] : 1950 74 From: Ricardo Padilla MD PCP: Dr. Harish Luis MD Status:ADM I N Location: [address] Reason for Visit Chief Complaint: Mechanical fall, recurrent, unable to safely care for self at home Subjective Subjective Patient is a 74-year-old lady who presented to the emergency department with recurrent falls Objective Data Objective Data Vital Signs: Vital Signs Temp Pulse Resp BP Pulse Ox O2 Del Method 98.0 F 78 16 166/91 H 96 Room Air 09/29/24 08:09 09/29/24 08:09 09/29/24 08:09 09/29/24 08:09 09/29/24 08:09 09/29/24 08:09 Oxygen Delivery Method Room Air Weight: 46.2 kg Body Mass Index (BMI) 19.2 Intake & Output: Intake and Output for Last 24 Hours 09/27/24 09/28/24 09/29/24 23:59 23:59 23:59 Intake Total 1000 / 1000 1350 / 1350 Balance 1000 / 1000 1350 / 1350 Lab / Micro Data 09/28/24 04:54 09/29/24 05:10 Labs: Laboratory Results - last 24 hr 09/29/24 05:10: Sodium 142, Potassium 3.7, Chloride 110 H, Carbon Dioxide 23.3, Anion Gap 9, BUN 9, Creatinine 0.75, Estim Creat Clear Calc 46.56 L, Est GFR (MDRD) Non-Af 83, BUN/Creatinine Ratio 11.6, Glucose 86, Calcium 8.6, Total Bilirubin 0.19, AST 26, ALT 12, Alkaline Phosphatase 80, Total Protein 5.3 L, Albumin 2.5 L, Globulin 2.8, Albumin/Globulin Ratio 0.9 Micro: Microbiology 09/27/24 13:14 Mucosa - Nose SARS-CoV-2, Influenza & RSV (PCR) - Final Physical Exam Narrative GENERAL: cooperative HEENT: Atraumatic; normocephalic EYES; Anicteric, Normal Conjunctiva NECK; supple, normal thyroid, RESPIRATORY: Diminished to auscultation CARDIOVASCULAR: Regular S1 S2, GI: soft, normoactive bowel sounds, : No Renal angle tenderness; EXTREMITIES: No edema, no clubbing, MUSCULOSKELETAL: no muscle wasting NEURO: Awake; no lateralizing signs. SKIN: No Rash PSYCH; Flat affect Assessment & Plan Assessment/Plan (1) Falls frequently: (2) Adult failure to thrive: PLAN: Plan Patient is a 74-year-old lady who presented to the emergency department with recurrent falls 1. Adult failure to thrive with recurrent falls ? Patient admitted to regular nursing floor. Patient home meds were reviewed including doxepin and clonazepam dose of which were reduced. Requested for PT OT eval and certified social workers in health care to assist with disposition. Plans for patient to bedischarged to assisted facility pending bed availability 2. History of chronic oropharyngeal dysphagia with previous history of aspiration pneumonia ? Speech therapy consulted 3. GERD ? On PPI 4. Depression with anxiety - Patient is on buspirone doxepin as well as clonazepam dose of the last 2 adjusted 5. Chronic back pain ? Complicating care PT OT as tolerated 6. Anemia ? Secondary to chronic disorder monitoring H&H and transfuse if patient becomes symptomatic or hemoglobin falls below 7 7. Tobacco dependence ? Counseled on cessation, offered nicotine patch for tobacco cravings 8. DVT prophylaxis ? On enoxaparin 10. Suspected severe protein calorie malnutrition ? Consult has been placed to dietitian Time spent in the patient's overall evaluation,decision-making process, review of diagnostic data, adjustment of management, discussion with other providers, nursing nursing and ancillary staff involved in patient's care documentation, 35 Minutes Charges/Coding Visit Charges Inpatient E&M: 91794 Subs Hosp L2 09/29/24 0903 <Electronically signed by Ricardo Padilla MD> Cosigner Signature (if applicable): CC: ~ Signed [facility] Work Phone: [phone]) 255-851207-14-2025 Progress note [facility] Medical Records Department [address] [place] [address] Progress Note - Hospitalist 09/29/24 0857 MR#: [id number] Acct: [id number] Name: CAROL DAVID Rep #:[id number] : 1950 74 From: Ricardo Padilla MD PCP: Dr. Harish Luis MD Status:ADM I N Location: [place] [address] Reason for Visit Chief Complaint: Mechanical fall, recurrent, unable to safely care for self at home Subjective Subjective Patient is a 74-year-old lady who presented to the emergency department with recurrent falls Objective Data Objective Data Vital Signs: Vital Signs Temp Pulse Resp BP Pulse Ox O2 Del Method 98.0 F 78 16 166/91 H 96 Room Air 09/29/24 08:09 09/29/24 08:09 09/29/24 08:09 09/29/24 08:09 09/29/24 08:09 09/29/24 08:09 Oxygen Delivery Method Room Air Weight: 46.2 kg Body Mass Index (BMI) 19.2 Intake & Output: Intake and Output for Last 24 Hours 09/27/24 09/28/24 09/29/24 23:59 23:59 23:59 Intake Total 1000 / 1000 1350 / 1350 Balance 1000 / 1000 1350 / 1350 Lab / Micro Data 09/28/24 04:54 09/29/24 05:10 Labs: Laboratory Results - last 24 hr 09/29/24 05:10: Sodium 142, Potassium 3.7, Chloride 110 H, Carbon Dioxide 23.3, Anion Gap 9, BUN 9,Creatinine 0.75, Estim Creat Clear Calc 46.56 L, Est GFR (MDRD) Non-Af 83, BUN/Creatinine Ratio 11.6, Glucose 86, Calcium 8.6, Total Bilirubin 0.19, AST 26, ALT 12, Alkaline Phosphatase 80, Total Protein 5.3 L, Albumin 2.5 L, Globulin 2.8, Albumin/Globulin Ratio 0.9 Micro: Microbiology 09/27/24 13:14 Mucosa - Nose SARS-CoV-2, Influenza & RSV (PCR) - Final Physical Exam Narrative GENERAL: cooperative HEENT: Atraumatic; normocephalic EYES; Anicteric, Normal Conjunctiva NECK; supple, normal thyroid, RESPIRATORY: Diminished to auscultation CARDIOVASCULAR: Regular S1 S2, GI: soft, normoactive bowel sounds, : No Renal angle tenderness; EXTREMITIES: No edema, no clubbing, MUSCULOSKELETAL: no muscle wasting NEURO: Awake; no lateralizing signs. SKIN: No Rash PSYCH; Flat affect Assessment & Plan Assessment/Plan (1) Falls frequently: (2) Adult failure to thrive: PLAN: Plan Patient is a 74-year-old lady who presented to the emergency department with recurrent falls 1. Adult failure to thrive with recurrent falls ? Patient admitted to regular nursing floor. Patient home meds were reviewed including doxepin and clonazepam dose of which were reduced. Requested for PT OT eval and certified social workers in health care to assist with disposition. Plans for patient to bedischarged to assisted facility pending bed availability 2. History of chronic oropharyngeal dysphagia with previous history of aspiration pneumonia ? Speech therapy consulted 3. GERD ? On PPI 4. Depression with anxiety - Patient is on buspirone doxepin as well as clonazepam dose of the last 2 adjusted 5. Chronic back pain ? Complicating care PT OT as tolerated 6. Anemia ? Secondary to chronic disorder monitoring H&H and transfuse if patient becomes symptomatic or hemoglobin falls below 7 7. Tobacco dependence ? Counseled on cessation, offered nicotine patch for tobacco cravings 8. DVT prophylaxis ? On enoxaparin 10. Suspected severe protein calorie malnutrition ? Consult has been placed to dietitian Time spent in the patient's overall evaluation,decision-making process, review of diagnostic data, adjustment of management, discussion with other providers, nursing nursing and ancillary staff involved in patient's care documentation, 35 Minutes Charges/Coding Visit Charges Inpatient E&M: 25887 Subs Hosp L2 09/29/24 0903 Cosigner Signature (if applicable): CC: ~ Signed [facility]07-13-2025 Progress note Author Anastasia Khan [facility] Note Date/Time September 28, 2024 11:3 5am [facility] Medical Records Department [address] [place] [address] Progress Note - Hospitalist 09/28/24709 MR#: [id number] Acct: [id number] Name: CAROL DAVID Rep #:[id number] : 1950 74 From: Anastasia Khan MD PCP: Dr. Harish Luis MD Status:ADM I N Location: [place] [address] Reason for Visit Reason for Visit: Diagnoses Repeated falls (09/27/24) Adult failure to thrive (09/27/24) Subjective Subjective Patient with no acute events overnight per self and per nursing report. Despitelengthy discussions yesterday the first question patient asked is if she can be discharged to home. Again reviewed yesterday's events and the frequent falls and her 's strong recommendation and insistence that she transition to assisted facility following which she was amenable. Patient denies fevers, chills, nausea, emesis, abdominal pain, chest pain or dyspnea. Objective Data Objective Data Vital Signs: Vital Signs Temp Pulse Resp BP Pulse Ox O2 Del Method 98.1 F 80 18 127/64 H 96 Room Air 09/28/24 02:41 09/28/24 02:41 09/28/24 02:41 09/28/24 02:41 09/28/24 02:41 09/28/24 02:42 Oxygen Delivery Method Room Air Weight: 109 lb 9.116 oz Body Mass Index (BMI) 20.7 Intake & Output: Intake and Output for Last 24 Hours 09/26/24 09/27/24 09/28/24 23:59 23:59 23:59 Intake Total 1000 / 1000 1000 / 1000 Balance 1000 / 1000 1000 / 1000 Lab / Micro Data 09/28/24 04:54 09/28/24 04:54 Labs: Laboratory Results - last 24 hr 09/27/24 12:59: WBC 8.5, RBC 3.53 L, Hgb 10.9 L, Hct 33.7 L, MCV 95.5, MCH 30.9,MCHC 32.3, RDW Std Deviation 48.4 H, RDW Coeff of Mehnaz 14.0, Plt Count 374, MPV 10.3, Immature Gran % (Auto) 0.600, Neut % (Auto) 80.5 H, Lymph % (Auto) 11.4 L,Addison % (Auto) 5.9, Eos % (Auto) 1.1, Baso % (Auto) 0.5, Absolute Neuts (auto) 6.8, Absolute Lymphs (auto) 0.97, Nucleated RBC % 0, Sodium 141, Potassium 3.3, Chloride 105, Carbon Dioxide 24.3, Anion Gap 12, BUN 9, Creatinine 0.85, Estim Creat Clear Calc 44.18 L, Est GFR (MDRD) Non-Af 72, BUN/Creatinine Ratio 10.3, Glucose 118 H, Calcium 8.9, Total Bilirubin 0.31, AST 44 H, ALT 20, Alkaline Phosphatase 102, Ammonia 12.1, Total Protein 6.6, Albumin 3.1 L, Globulin 3.5, Albumin/Globulin Ratio 0.9 09/27/24 13:10: Urine Color Yellow, Urine Clarity Sl. Cloudy, Urine pH 6.0, Ur Specific [place] 1.015, Urine Protein 30 H, Urine Glucose (UA) Normal, Urine Ketones Negative, Urine Occult Blood 10 H, Urine Nitrite Negative, Urine Bilirubin Negative, Urine Urobilinogen Normal, Ur Leukocyte Esterase 500 H, Urine RBC 0-5 SEEN, Urine WBC 0-5 SEEN, Ur Squamous Epith Cells 0 SEEN, Urine Bacteria 0 SEEN, Urine Mucus 0 SEEN, Urine Yeast 1+ 09/28/24 04:54: WBC 5.1, RBC 2.92 L, Hgb 9.1 L, Hct 27.5 L, MCV 94.2, MCH 31.2, MCHC 33.1, RDW Std Deviation 48.6 H, RDW Coeff of Mehnaz 14.0, Plt Count 347, MPV 9.9, Immature Gran % (Auto) 0.400, Neut % (Auto) 53.6, Lymph % (Auto) 31.8, Addison% (Auto) 9.1, Eos % (Auto) 4.1, Baso % (Auto) 1.0, Absolute Neuts (auto) 2.7, Absolute Lymphs (auto) 1.61, Nucleated RBC % 0, Sodium 140, Potassium 3.3, Chloride 109 H, Carbon Dioxide 23.4, Anion Gap 8, BUN 9, Creatinine 0.77, Estim Creat Clear Calc 46.56 L, Est GFR (MDRD) Non-Af 82, BUN/Creatinine Ratio 12.2, Glucose 82, Calcium 8.2, Total Bilirubin 0.26, AST 33 H, ALT 14, Alkaline Phosphatase 82, Total Protein 5.2 L, Albumin 2.5 L, Globulin 2.7, Albumin/Globulin Ratio 0.9 Micro: Microbiology 09/27/24 13:14 Mucosa - Nose SARS-CoV-2, Influenza & RSV (PCR) - Final Radiography Diagnostic Testing: Radiology Impression Brain CT 09/27/24 12:46 IMPRESSION: No acute intracranial finding. Reading Location: [facility] Chest X-Ray 09/27/24 13:25 IMPRESSION: Stable bilateral lower lung zone consolidations, [id number], compatible with pneumonitis/pneumonia. Reading Location: [facility] Pelvis X-Ray 09/27/24 13:50 IMPRESSION: No acute pelvic deformity. Reading Location: [facility] Physical Exam Narrative Physical Examination: General: Awake, alert, oriented x 3, remains cooperative, seated upright in the NM bedside chair, eating breakfast, notes feeling well and was eager for discharge however discussed that we are awaiting assisted facility at this time. Skin: Normal color, normal turgor, no icterus, no cyanosis except very stage ecchymoses, abrasions. HEENT: AT/NC, EOMI, PERRLA, MMM. Lungs: Mildly diminished, greater bases, mildly increased respiratory rate but no distress, no significant rales, rhonchi or wheezing. Heart: Regular rate and rhythm; no gallop, rub audible. Abdomen: Soft, thin habitus, NTTP, ND, mildly hyperactive BS. Extremities: No cyanosis, no clubbing, mild ankle not markedly pitting edema. Neurological: Patient awake, alert, oriented as noted, cognitive function suspect baseline intact but likely some underlying chronic impairment; pupils equally reactive to light and accommodation, cranial nerves grossly normal, moving all 4 extremities, no focal deficits, strength moderately to severely globally decreased. Psychiatric: Affect appears normal, no acute evidence of depressive or anxiety feelings but does have underlying history. Assessment & Plan Assessment/Plan (1) Falls frequently: (2) Adult failure to thrive: PLAN: Plan The patient is a 74 y/o F w/ PMHx: CKD stage II per GFR trending, Anxiety and Depression, Chronic oropharyngeal dysphagia with frequent history of aspiration pneumonia, Chronic back pain, Chronic normocytic anemia, Hx VTE, GERD, Tobacco use, recent discharge 09/22/24 following history of recurrent falls and confusion admitted to PCU maintained on aspiration precautions empirically treated with IVantibiotic therapy for aspiration with ST evaluation with eventual clearance forregular diet/thin liquids with direct supervision one-to-one with patient medications for home altered with doxepin decreased and recommended continued taper outpatient, decreased on clonazepam with recommended continued taper outpatient and continued BuSpar given history of frequent falls with strong recommendation for continued hospitalization however patient on 09/22/2024 was extremely adamant for discharge and noted willingness to continue speech therapyevaluations outpatient discharged on oral levaquin/flagyl for an additional 5-day course now presenting to the [facility] ED on 09/27/2024 withhistory of recurrent frequent falls including another on day of presentation when she was try to go through the cupboards unfortunately falling and hit her head with no loss of consciousness nor any neck discomfort but given recurrent event prompted ED evaluation. #1. Adult FTT with serial mechanical falls, unsafe to be living at home given possibility of recurrent trauma: Admitted to NM, maintain on fall and aspirationprecautions, as previously noted will continue as noted with reduced dose of doxepin and reduced dose of clonazepam with transition to assisted facility once precertification obtained with ongoing slow taper of these two agents to avoid withdrawal, continued on buspirone at this time on same dose only, plan is for TCU once bed available and precertification obtained especially as Dr. Luis is aware of her history and contributing to the sedated regimen taper protocol, PT/OT/case management consulted for discharge planning with again plan TCU once bed available and precertification obtained. #2. Recent presentation with oropharyngeal chronic dysphagia with suspected aspiration pneumonia: Recent presentation with aspiration pneumonia, speech therapy evaluation with clearance for regular diet/thin liquids with direct supervision one-to-one, will continue ST evaluation as well as aspiration precautions, plan to continue levaquin/flagyl oral regimen to completion. #3. Chronic Kidney Disease Stage II per GFR trending: Admission BUN/Cr 9/0.85, GFR 72, baseline renal function primarily 0.7-0.9 but is vacillated, 09/28/2024 BUN/creatinine 9/0.77, GFR 82. #4. Anxiety and depression: Will continue only buspirone, continue reduced doseof doxepin as well as reduced dose of clonazepam with again at discharge continued aggressive closely monitored wean as this patient is unsafe for continued sedate of medications as she is frequently falling, as noted plan for transition to TCU where patient is familiar to Dr. Luis who will continue tapering protocol. #5. Chronic back pain, debility with cervical stenosis, scoliosis of the spine:Status post surgical intervention of the spine, encourage offloading, positionalchanges, Tylenol as needed. #6. History of VTE: Patient with history of DVT, PE previously, had been felt provoked at that time secondary to immobility, previously had been on Eliquis, maintained on chemoprophylaxis with Lovenox. #7. Chronic normocytic anemia: Admission hemoglobin 10.9, MCV 95.5, baseline hemoglobin more recently 10-11 range, 09/28/2024 hemoglobin 9.1, MCV 94.2. #8. Tobacco use: Encourage continued tobacco cessation. #9. GERD: Will continue patient on PPI. #10. DVT Prophylaxis: Lovenox cautiously given fall history. #11. CODE status: Patient SUNITA is her and living will is currently in place. Full Code status. Charges/Coding Visit Charges Inpatient E&M: 19380 Subs Hosp L2 09/28/24 1135 <Electronically signed by Anastasia Khan MD> Cosigner Signature (if applicable): CC: ~ Signed [facility] Work Phone: 1(620) 263-514207-13-2025 Progress note [facility] Medical Records Department [address] [place] [address] Progress Note - Hospitalist 09/28/24 0710 MR#: [id number] Acct: [id number] Name: CAROL DAVID Rep #:[id number] : 1950 74 From: Anastasia Khan MD PCP: Dr. Harish Luis MD Status:ADM I N Location: [facility] SX270-5 Reason for Visit Reason for Visit: Diagnoses Repeated falls (09/27/24) Adult failure to thrive (09/27/24) Subjective Subjective Patient with no acute events overnight per self and per nursing report. Despitelengthy discussions yesterday the first question patient asked is if she can be discharged to home. Again reviewed yesterday's events and the frequent falls and her 's strong recommendation and insistence that shetransition to assisted facility following which she was amenable. Patient denies fevers, chills, nausea, emesis, abdominal pain, chest pain or dyspnea. Objective Data Objective Data Vital Signs: Vital Signs Temp Pulse Resp BP Pulse Ox O2 Del Method 98.1 F 80 18 127/64 H 96 Room Air 09/28/24 02:41 09/28/24 02:41 09/28/24 02:41 09/28/24 02:41 09/28/24 02:41 09/28/24 02:42 Oxygen Delivery Method Room Air Weight: 109 lb 9.116 oz Body Mass Index (BMI) 20.7 Intake & Output: Intake and Output for Last 24 Hours 09/26/24 09/27/24 09/28/24 23:59 23:59 23:59 Intake Total 1000 / 1000 1000 / 1000 Balance 1000 / 1000 1000 / 1000 Lab / Micro Data 09/28/24 04:54 09/28/24 04:54 Labs: Laboratory Results - last 24 hr 09/27/24 12:59: WBC 8.5, RBC 3.53 L, Hgb 10.9 L, Hct 33.7 L, MCV 95.5, MCH 30.9,MCHC 32.3, RDW Std Deviation 48.4 H, RDW Coeff of Mehnaz 14.0, Plt Count 374, MPV 10.3, Immature Gran % (Auto) 0.600, Neut% (Auto) 80.5 H, Lymph % (Auto) 11.4 L,Addison % (Auto) 5.9, Eos % (Auto) 1.1, Baso % (Auto) 0.5, Absolute Neuts (auto) 6.8, Absolute Lymphs (auto) 0.97, Nucleated RBC % 0, Sodium 141, Potassium 3.3, Chloride 105, Carbon Dioxide 24.3, Anion Gap 12, BUN 9, Creatinine 0.85, Estim Creat Clear Calc 44.18 L, Est GFR (MDRD) Non-Af 72, BUN/Creatinine Ratio 10.3, Glucose 118 H, Calcium 8.9, Total Bilirubin 0.31, AST 44 H, ALT 20, Alkaline Phosphatase 102, Ammonia 12.1, Total Protein 6.6, Albumin 3.1 L, Globulin 3.5, Albumin/Globulin Ratio 0.9 09/27/24 13:10: Urine Color Yellow, Urine Clarity Sl. Cloudy, Urine pH 6.0, Ur Specific [place] 1.015, Urine Protein 30 H, Urine Glucose (UA) Normal, Urine Ketones Negative, Urine Occult Blood 10 H, Urine Nitrite Negative, Urine Bilirubin Negative, Urine Urobilinogen Normal, Ur Leukocyte Esterase 500 H, Urine RBC 0-5 SEEN, Urine WBC 0-5 SEEN, Ur Squamous Epith Cells 0 SEEN, Urine Bacteria 0 SEEN,Urine Mucus 0 SEEN, Urine Yeast 1+ 09/28/24 04:54: WBC 5.1, RBC 2.92 L, Hgb 9.1 L, Hct 27.5 L, MCV 94.2, MCH 31.2, MCHC 33.1, RDW Std Deviation 48.6 H, RDW Coeff of Mehnaz 14.0, Plt Count 347, MPV 9.9, Immature Gran % (Auto) 0.400, Neut % (Auto) 53.6, Lymph % (Auto) 31.8, Addison% (Auto) 9.1, Eos % (Auto) 4.1, Baso % (Auto) 1.0, Absolute Neuts (auto) 2.7, Absolute Lymphs (auto) 1.61, Nucleated RBC % 0, Sodium 140, Potassium 3.3, Chloride 109 H, Carbon Dioxide 23.4, Anion Gap 8, BUN 9, Creatinine 0.77, Estim Creat Clear Calc 46.56 L, Est GFR (MDRD) Non-Af 82, BUN/Creatinine Ratio 12.2, Glucose 82, Calcium 8.2, Total Bilirubin 0.26, AST 33 H, ALT 14, Alkaline Phosphatase 82, Total Protein 5.2 L, Albumin 2.5 L, Globulin 2.7, Albumin/G lobulin Ratio 0.9 Micro: Microbiology 09/27/24 13:14 Mucosa - Nose SARS-CoV-2, Influenza & RSV (PCR) - Final Radiography Diagnostic Testing: Radiology Impression Brain CT 09/27/24 12:46 IMPRESSION: No acute intracranial finding. Reading Location: [facility] Chest X-Ray 09/27/24 13:25 IMPRESSION: Stable bilateral lower lung zone consolidations, [id number], compatible with pneumonitis/pneumonia. Reading Location: [facility] Pelvis X-Ray 09/27/24 13:50 IMPRESSION: No acute pelvic deformity. Reading Location: [facility] Physical Exam Narrative Physical Examination: General: Awake, alert, oriented x 3, remains cooperative, seated upright in the NM bedside chair, eating breakfast, notes feeling well and was eager for discharge however discussed that we are awaiting assisted facility at this time. Skin: Normal color, normal turgor, no icterus, no cyanosis except very stage ecchymoses, abrasions. HEENT: AT/NC, EOMI, PERRLA, MMM. Lungs: Mildly diminished, greater bases, mildly increased respiratory rate but no distress, no significant rales, rhonchi or wheezing. Heart: Regular rate and rhythm; no gallop, rub audible. Abdomen: Soft, thin habitus, NTTP, ND, mildly hyperactive BS. Extremities: No cyanosis, no clubbing, mild ankle not markedly pitting edema. Neurological: Patient awake, alert, oriented as noted, cognitive function suspect baseline intact but likely some underlying chronic impairment; pupils equally reactive to light and accommodation, cranial nerves grossly normal, moving all 4 extremities, no focal deficits, strength moderately to severely globally decreased. Psychiatric: Affect appears normal, no acute evidence of depressive or anxiety feelings but does have underlying history. Assessment & Plan Assessment/Plan (1) Falls frequently: (2) Adult failure to thrive: PLAN: Plan The patient is a 74 y/o F w/ PMHx: CKD stage II per GFR trending, Anxiety and Depression, Chronic oropharyngeal dysphagia with frequent history of aspiration pneumonia, Chronic back pain, Chronic normocytic anemia, Hx VTE, GERD, Tobacco use, recent discharge 09/22/24 following history of recurrent falls and confusion admitted to PCU maintained on aspiration precautions empirically treated with IVantibiotic therapy for aspiration with ST evaluation with eventual clearance forregular diet/thin liquids with direct supervision one-to-one with patient medications for home altered with doxepin decreased and recommended continued taper outpatient, decreased on clonazepam with recommended continued taper outpatient and continued BuSpar given history of frequent falls with strong recommendation for continued hospitalization however patient on 09/22/2024 was extremely adamant for discharge and noted willingness to continue speech therapyevaluations outpatient discharged on oral levaquin/flagyl for an additional 5-day course now presenting to the [facility] ED on 09/27/2024 withhistory of recurrent frequent falls including another on day of presentation when she was try to go through the cupboards unfortunately falling and hit her head with no loss of consciousness nor any neck discomfort but given recurrent event prompted ED evaluation. #1. Adult FTT with serial mechanical falls, unsafe to be living at home given possibility of recurrent trauma: Admitted to NM, maintain on fall and aspirationprecautions, as previously noted will continue as noted with reduced dose of doxepin and reduced dose of clonazepam with transition to assisted facility once precertification obtained with ongoing slow taper of these two agents to avoid withdrawal, continued on buspirone at this time on same dose only, plan is for TCU once bed available and precertification obtained especially as Dr. Luis is aware of her history and contributing to the sedated regimen taper protocol, PT/OT/case management consulted for discharge planning with again plan TCU once bed available and precertification obtained. #2. Recent presentation with oropharyngeal chronic dysphagia with suspected aspiration pneumonia: Recent presentation with aspiration pneumonia, speech therapy evaluation with clearance for regular diet/thin liquids with direct supervision one-to-one, will continue ST evaluation as well as aspiration precautions, plan to continue levaquin/flagyl oral regimen to completion. #3. Chronic Kidney Disease Stage II per GFR trending: Admission BUN/Cr 9/0.85, GFR 72, baseline renal function primarily 0.7-0.9 but is vacillated, 09/28/2024 BUN/creatinine 9/0.77, GFR 82. #4. Anxiety and depression: Will continue only buspirone, continue reduced doseof doxepin as well as reduced dose of clonazepam with again at discharge continued aggressive closely monitored wean as this patient is unsafe for continued sedate of medications as she is frequently falling, as noted plan for transition to TCU where patient is familiar to Dr. Luis who will continue tapering protocol. #5. Chronic back pain, debility with cervical stenosis, scoliosis of the spine:Status post surgicalintervention of the spine, encourage offloading, positionalchanges, Tylenol as needed. #6. History of VTE: Patient with history of DVT, PE previously, had been felt provoked at that timesecondary to immobility, previously had been on Eliquis, maintained on chemoprophylaxis with Lovenox. #7. Chronic normocytic anemia: Admission hemoglobin 10.9, MCV 95.5, baseline hemoglobin more recently 10-11 range, 09/28/2024 hemoglobin 9.1, MCV 94.2. #8. Tobacco use: Encourage continued tobacco cessation. #9. GERD: Will continue patient on PPI. #10. DVT Prophylaxis: Lovenox cautiously given fall history. #11. CODE status: Patient HCPOA is her and living will is currently in place. Full Code status. Charges/Coding Visit Charges Inpatient E&M: 34205 Subs Hosp L2 09/28/24 1135 Cosigner Signature (if applicable): CC: ~ Signed [facility]07-12-2025 Discharge summary Author Dimitry Rosales [facility] Note Date/Time September 27, 2024 9:07 pm [facility] Medical Records Department [address] [place] [address] Emergency Department Summary 09/27/24 MR#: [id number] Acct: [id number] Name: CAROL DAVID Rep #:[id number] : 1950 74 From: Dimitry Rosales DO PCP: Dr. Harish Luis MD Status:ADM I N Location: NM3 BG004-0 HPI HPI - Fall History of Present Illness Chief Complaint: Fall Detail of Chief Complaint: Falls Informant: patient Narrative Narrative: Patient presents the emergency department with complaint of frequent falls. Patient had a episode of another fall today where she was trying to go through the cupboards and fell and hit her head. No loss of consciousness. She denies neck pain. She denies chest pain or abdominal pain. She states she has had a cough for about 6 months. Denies urinary symptoms. Denies fever. Denies chestor abdomen pain. Complains of some pain in her coccyx. [facility] Medical History Aspiration pneumonia Hypoxia Fracture of humeral head [...] mg tablet 7.5 mg PO BID ANXIETY 09/20/24 22:00 History 7.5 mg clonazepam 1 mg tablet 0.5 mg (1/2 x 1 mg) PO BID A NXIETY 09/22/24 09/20/24 Rx 14 days #14 tabs doxepin 150 mg capsule 150 mg PO QHS ANXIETY 30 da ys #30 09/22/24 09/20/24 22:00 Rx caps 300 mg levofloxacin 500 mg tablet 500 mg PO DAILY 5 days #5 t abs 09/22/24 Unknown Rx metronidazole 500 mg tablet 500 mg PO Q8H 5 days #15 t abs 09/22/24 Unknown Rx omeprazole 40 mg capsule,delayed 40 mg PO DAILY 30 day s #30 caps 09/22/24 09/20/24 08:00 Rx release 40 mg Allergy/AdvReac Type Severity Reaction Status Date / Time Penicillins Allergy Rash Verified 09/27/24 12:28 Family History Mother Hypertension CVA (cerebral vascular [...] ambulating with a cane ROS ROS ED Review of Systems ROS Unobtainable: other Constitutional Constitutional ED: Reports lethargy; Denies chills, fever(s), sweats or weight loss Eyes Eyes: Denies blurry vision, change in vision or diplopia ENT ENT ED: Denies rhinorrhea or sore throat Cardiovascular Cardiovascular: Denies chest pain, orthopnea or racing heartbeat Respiratory/Chest Respiratory/Chest: Reports cough; Denies dyspnea, dyspnea on exertion, orthopneaor sputum Gastrointestinal Gastrointestinal: Denies abdominal pain, diarrhea, nausea or vomiting Genitourinary Genitourinary ED: Denies dysuria, hematuria or urinary frequency Musculoskeletal Musculoskeletal: Reports other Details: Tailbone pain/coccyx pain ; Denies arthralgias, back pain, myalgias or neck pain Integumentary Denies abscess, Abrasions or rash Neurologic Neurologic: Reports other Details: Frequent falls ; Denies headache(s) or weakness Psychiatric Psychiatric: Denies anxiety, depression or suicidal thoughts Endocrine Endocrinology: Denies polydipsia, polyphagia or polyuria Hematologic/Lymphatic Hematologic/Lymphatic: Denies easy bleeding, easy bruising or lymphadenopathy Allergic/Immunologic Allergic/Immunologic ED: Denies mouth swelling, tongue swelling or urticaria EXAM Physical Exam Const Vital Signs: 09/27/24 12:26 09/27/24 12:33 09/27/24 12:36 Temperature 98.5 F Temperature Source Oral Pulse Rate 83 Respiratory Rate 16 Respiratory Effort Normal Normal Respiratory Pattern Normal Blood Pressure 114/76 Blood Pressure Mean 88 Pulse Ox 95 Oxygen Delivery Method Room Air Positive well nourished and well developed General Appearance ED: well developed and NAD HEENT Reports TM's clear and moist mucous membranes normocephalic and atraumatic; Negative for trauma or tenderness Tympanic Membrane ED: Yes TM's clear Eyes PERRL and EOMs intact bilaterally General Eye ED: Negative for pale conjunctiva or scleral icterus Neck no lymphadenopathy, supple and no JVD General: Negative for tenderness Chest Wall inspection of chest normal and palpation of chest normal Chest: Negative for tenderness Resp normal respiratory effort and clear to auscultation bilaterally Effort and Inspection: Negative for respiratory distress or pain with movement Auscultation: Negative for rhonchi, wheezes or diminished lung sounds Cardio regular rate, regular rhythm, S1 normal heart sound, S2 normal heart sound and no murmurs Peripheral Pulses: pulses 2+ throughout GI normal to inspection, nondistended, normoactive bowel sounds, soft to palpation,non-tender, non-distended and no masses Back/Spine no CVA tenderness and no thoracic nor lumbar tenderness Extremity normal to inspection General Extremety ED: Negative for edema General Extremity: Negative for edema Neuro oriented x3, CN's II-XII intact bilaterally, no sensory deficits noted and gait normal Sensorium / Orientation: awake, alert, oriented to person, oriented to place andoriented to time Motor Exam: strength 5/5 throughout and strength abnormal Psych mental status grossly normal Skin no rashes or lesions noted and no wounds MDM MDM MDM Narrative Medical decision making narrative: Patient presents with generalized weakness and another fall. Had recent admission for falls and at that time had fever and pneumonia. states hehad a hard time getting her up today and she was unable to go upstairs to get changed. He feels she needs rehabilitation as she is not doing well at home andnot able to thrive. IV line established on arrival. CT scan of the brain obtained showed no acute injury. Chest x-ray shows chronic unchanged consolidation right lower lobe and left lower lobe. CBC with differential showsa white count of 8.5 with hemoglobin 10.9 and platelet count of 374. Chemistry is unremarkable. LFTs unremarkable. Ammonia level was 12.1. Urinalysis unremarkable. Will discuss case with hospitalist to evaluate for admission for generalized weakness and failure to thrive with frequent falls Lab Data Attestation: I reviewed the patient's lab results. Labs: Laboratory Results - last 24 hr 09/27/24 09/27/24 12:59 13:10 WBC 8.5 RBC 3.53 L Hgb 10.9 L Hct 33.7 L MCV 95.5 MCH 30.9 MCHC 32.3 RDW Std Deviation 48.4 H RDW Coeff of Mehnaz 14.0 Plt Count 374 MPV 10.3 Immature Gran % (Auto) 0.600 Neut % (Auto) 80.5 H Lymph % (Auto) 11.4 L Addison % (Auto) 5.9 Eos % (Auto) 1.1 Baso % (Auto) 0.5 Absolute Neuts (auto) 6.8 Absolute Lymphs (auto) 0.97 Nucleated RBC % 0 Sodium 141 Potassium 3.3 Chloride 105 Carbon Dioxide 24.3 Anion Gap 12 BUN 9 Creatinine 0.85 Estim Creat Clear Calc 44.18 L Est GFR (MDRD) Non-Af 72 BUN/Creatinine Ratio 10.3 Glucose 118 H Calcium 8.9 Total Bilirubin 0.31 AST 44 H ALT 20 Alkaline Phosphatase 102 Ammonia 12.1 Total Protein 6.6 Albumin 3.1 L Globulin 3.5 Albumin/Globulin Ratio 0.9 Urine Color Yellow Urine Clarity Sl. Cloudy Urine pH 6.0 Ur Specific [place] 1.015 Urine Protein 30 H Urine Glucose (UA) Normal Urine Ketones Negative Urine Occult Blood 10 H Urine Nitrite Negative Urine Bilirubin Negative Urine Urobilinogen Normal Ur Leukocyte Esterase 500 H Urine RBC 0-5 SEEN Urine WBC 0-5 SEEN Ur Squamous Epith Cells 0 SEEN Urine Bacteria 0 SEEN Urine Mucus 0 SEEN Urine Yeast 1+ Radiography Diagnostic Testing: Clinical Impression(s) from Imaging Studies Brain CT 09/27/24 12:46 IMPRESSION: No acute intracranial finding. Reading Location: [facility] Chest X-Ray 09/27/24 13:25 IMPRESSION: Stable bilateral lower lung zone consolidations, [id number], compatible with pneumonitis/pneumonia. Reading Location: [facility] 1 view chest x-ray obtained interpreted by myself as increased markings right lower lobe and left lower lobe concerning for pneumonia. Radiology in agreementand felt findings were stable when compared with prior chest x-ray. EKG Initial EKG: Attestation: I personally reviewed and interpreted this EKG as follows: Comments: Sinus rhythm with rate of 84 bpm with no acute ST segment changes Discharge Plan Triage Chief Complaint: Fall ED Provider: Dimitry Rosales Dx/Rx/DC Orders Clinical Impression: Weakness, Falls frequently, Adult failure to thrive Prescriptions: No Action buspirone 7.5 MG tablet 7.5 mg PO BID levofloxacin 500 mg tablet 500 mg PO DAILY 5 Days Qty: 5 0RF clonazepam 1 MG tablet 0.5 mg PO BID 14 Days Qty: 14 0RF Rx Instructions: Please cut back to 0.5 mg BID and follow closely with PCP to have directed taper off given already on buspirone regimen also. omeprazole 40 mg capsule,delayed release(DR/EC) 40 mg PO DAILY 30 Days Qty: 30 0RF Patient Comments: pt states she take the med once a day but not every day doxepin 150 mg capsule 150 mg PO QHS 30 Days Qty: 30 0RF Rx Instructions: Given notable encephalopathy, recurrent aspiration issues, decrease to 150 mgq HS and with PCP direction taper dose over the next several weeks. metronidazole 500 mg tablet 500 mg PO Q8H 5 Days Qty: 15 0RF Primary Care Provider: Harish Luis Chi Referrals: Harish Luis Chi, MD [Primary Care Provider] - Print Language: [place] Citizen Disposition Disposition: Acute Care Hospital [facility] What to do if you have Problems For any increased pain, shortness of breath, bleeding, nausea or vomiting, chestpain, or any unexpected problems, contact your Primary Care Provider. Call [facility] ([phone]) or report to the closest Emergency Room. Call 911 if necessary. [id number]/27/[id number] <Electronically signed by Dimitry Rosales DO> Cosigner Signature (if applicable): CC: Dr. Harish Luis MD ~ Signed [facility] Work Phone: [phone] 234-689007-12-2025 Discharge summary [facility] Medical Records Department [address] [place] [address] Emergency Department Summary 09/27/24 MR#: [id number] Acct: [id number] Name: CAROL DAVID Rep #:[id number] : 1950 74 From: Dimitry Rosalse DO PCP: Dr. Harish Luis MD Status:ADM I N Location: [place] [address]-1 HPI HPI - Fall History of Present Illness Chief Complaint: Fall Detail of Chief Complaint: Falls Informant: patient Narrative Narrative: Patient presents the emergency department with complaint of frequent falls. Patient had a episode of another fall today where she was trying to go through the cupboards and fell and hit her head. No loss of consciousness. She denies neck pain. She denies chest pain or abdominal pain. She states shehas had a cough for about 6 months. Denies urinary symptoms. Denies fever. Denies chestor abdomen pain. Complains of some pain in her coccyx. [facility] Medical History Aspiration pneumonia Hypoxia Fracture of humeral head [...] mg tablet 7.5 mg PO BID ANXIETY 09/20/24 22:00 History 7.5 mg clonazepam 1 mg tablet 0.5 mg (1/2 x 1 mg) PO BID A NXIETY 09/22/24 09/20/24 Rx 14 days #14 tabs doxepin 150 mg capsule 150 mg PO QHS ANXIETY 30 da ys #30 09/22/24 09/20/24 22:00 Rx caps 300 mg levofloxacin 500 mg tablet 500 mg PO DAILY 5 days #5 t abs 09/22/24 Unknown Rx metronidazole 500 mg tablet 500 mg PO Q8H 5 days #15 t abs 09/22/24 Unknown Rx omeprazole 40 mg capsule,delayed 40 mg PO DAILY 30 day s #30 caps 09/22/24 09/20/24 08:00 Rx release 40 mg Allergy/AdvReac Type Severity Reaction Status Date / Time Penicillins Allergy Rash Verified 09/27/24 12:28 Family History Mother Hypertension CVA (cerebral vascular [...] ambulating with a cane ROS ROS ED Review of Systems ROS Unobtainable: other Constitutional Constitutional ED: Reports lethargy; Denies chills, fever(s), sweats or weight loss Eyes Eyes: Denies blurry vision, change in vision or diplopia ENT ENT ED: Denies rhinorrhea or sore throat Cardiovascular Cardiovascular: Denies chest pain, orthopnea or racing heartbeat Respiratory/Chest Respiratory/Chest: Reports cough; Denies dyspnea, dyspnea on exertion, orthopneaor sputum Gastrointestinal Gastrointestinal: Denies abdominal pain, diarrhea, nausea or vomiting Genitourinary Genitourinary ED: Denies dysuria, hematuria or urinary frequency Musculoskeletal Musculoskeletal: Reports other Details: Tailbone pain/coccyx pain ; Denies arthralgias, back pain, myalgias or neck pain Integumentary Denies abscess, Abrasions or rash Neurologic Neurologic: Reports other Details: Frequent falls ; Denies headache(s) or weakness Psychiatric Psychiatric: Denies anxiety, depression or suicidal thoughts Endocrine Endocrinology: Denies polydipsia, polyphagia or polyuria Hematologic/Lymphatic Hematologic/Lymphatic: Denies easy bleeding, easy bruising or lymphadenopathy Allergic/Immunologic Allergic/Immunologic ED: Denies mouth swelling, tongue swelling or urticaria EXAM Physical Exam Const Vital Signs: 09/27/24 12:26 09/27/24 12:33 09/27/24 12:36 Temperature 98.5 F Temperature Source Oral Pulse Rate 83 Respiratory Rate 16 Respiratory Effort Normal Normal Respiratory Pattern Normal Blood Pressure 114/76 Blood Pressure Mean 88 Pulse Ox 95 Oxygen Delivery Method Room Air Positive well nourished and well developed General Appearance ED: well developed and NAD HEENT Reports TM's clear and moist mucous membranes normocephalic and atraumatic; Negative for trauma or tenderness Tympanic Membrane ED: Yes TM's clear Eyes PERRL and EOMs intact bilaterally General Eye ED: Negative for pale conjunctiva or scleral icterus Neck no lymphadenopathy, supple and no JVD General: Negative for tenderness Chest Wall inspection of chest normal and palpation of chest normal Chest: Negative for tenderness Resp normal respiratory effort and clear to auscultation bilaterally Effort and Inspection: Negative for respiratory distress or pain with movement Auscultation: Negative for rhonchi, wheezes or diminished lung sounds Cardio regular rate, regular rhythm, S1 normal heart sound, S2 normal heart sound and no murmurs Peripheral Pulses: pulses 2+ throughout GI normal to inspection, nondistended, normoactive bowel sounds, soft to palpation,non-tender, non-distended and no masses Back/Spine no CVA tenderness and no thoracic nor lumbar tenderness Extremity normal to inspection General Extremety ED: Negative for edema General Extremity: Negative for edema Neuro oriented x3, CN's II-XII intact bilaterally, no sensory deficits noted and gait normal Sensorium / Orientation: awake, alert, oriented to person, oriented to place andoriented to time Motor Exam: strength 5/5 throughout and strength abnormal Psych mental status grossly normal Skin no rashes or lesions noted and no wounds MDM MDM MDM Narrative Medical decision making narrative: Patient presents with generalized weakness and another fall. Had recent admission for falls and at that time had fever and pneumonia. states hehad a hard time getting her up today and she wasunable to go upstairs to get changed. He feels she needs rehabilitation as she is not doing well athome andnot able to thrive. IV line established on arrival. CT scan of the brain obtained showed noacute injury. Chest x-ray shows chronic unchanged consolidation right lower lobe and left lower lobe. CBC with differential showsa white count of 8.5 with hemoglobin 10.9 and platelet count of 374. Chemistry is unremarkable. LFTs unremarkable. Ammonia level was 12.1. Urinalysis unremarkable. Will discuss case with hospitalist to evaluate for admission for generalized weakness and failure to thrive with frequent falls Lab Data Attestation: I reviewed the patient's lab results. Labs: Laboratory Results - last 24 hr 09/27/24 09/27/24 12:59 13:10 WBC 8.5 RBC 3.53 L Hgb 10.9 L Hct 33.7 L MCV 95.5 MCH 30.9 MCHC 32.3 RDW Std Deviation 48.4 H RDW Coeff of Mehnaz 14.0 Plt Count 374 MPV 10.3 Immature Gran % (Auto) 0.600 Neut % (Auto) 80.5 H Lymph % (Auto) 11.4 L [place] % (Auto) 5.9 Eos % (Auto) 1.1 Baso % (Auto) 0.5 Absolute Neuts (auto) 6.8 Absolute Lymphs (auto) 0.97 Nucleated RBC % 0 Sodium 141 Potassium 3.3 Chloride 105 Carbon Dioxide 24.3 Anion Gap 12 BUN 9 Creatinine 0.85 Estim Creat Clear Calc 44.18 L Est GFR (MDRD) Non-Af 72 BUN/Creatinine Ratio 10.3 Glucose 118 H Calcium 8.9 Total Bilirubin 0.31 AST 44 H ALT 20 Alkaline Phosphatase 102 Ammonia 12.1 Total Protein 6.6 Albumin 3.1 L Globulin 3.5 Albumin/Globulin Ratio 0.9 Urine Color Yellow Urine Clarity Sl. Cloudy Urine pH 6.0 Ur Specific [place] 1.015 Urine Protein 30 H Urine Glucose (UA) Normal Urine Ketones Negative Urine Occult Blood 10 H Urine Nitrite Negative Urine Bilirubin Negative Urine Urobilinogen Normal Ur Leukocyte Esterase 500 H Urine RBC 0-5 SEEN Urine WBC 0-5 SEEN Ur Squamous Epith Cells 0 SEEN Urine Bacteria 0 SEEN Urine Mucus 0 SEEN Urine Yeast 1+ Radiography Diagnostic Testing: Clinical Impression(s) from Imaging Studies Brain CT 09/27/24 12:46 IMPRESSION: No acute intracranial finding. Reading Location: [facility] Chest X-Ray 09/27/24 13:25 IMPRESSION: Stable bilateral lower lung zone consolidations, [id number], compatible with pneumonitis/pneumonia. Reading Location: [facility] 1 view chest x-ray obtained interpreted by myself as increased markings right lower lobe and left lower lobe concerning for pneumonia. Radiology in agreementand felt findings were stable when compared with prior chest x-ray. EKG Initial EKG: Attestation: I personally reviewed and interpreted this EKG as follows: Comments: Sinus rhythm with rate of 84 bpm with no acute ST segment changes Discharge Plan Triage Chief Complaint: Fall ED Provider: Dimitry Rosales Dx/Rx/DC Orders Clinical Impression: Weakness, Falls frequently, Adult failure to thrive Prescriptions: No Action buspirone 7.5 MG tablet 7.5 mg PO BID levofloxacin 500 mg tablet 500 mg PO DAILY 5 Days Qty: 5 0RF clonazepam 1 MG tablet 0.5 mg PO BID 14 Days Qty: 14 0RF Rx Instructions: Please cut back to 0.5 mg BID and follow closely with PCP to have directed taper off given already on buspirone regimen also. omeprazole 40 mg capsule,delayed release(DR/EC) 40 mg PO DAILY 30 Days Qty: 30 0RF Patient Comments: pt states she take the med once a day but not every day doxepin 150 mg capsule 150 mg PO QHS 30 Days Qty: 30 0RF Rx Instructions: Given notable encephalopathy, recurrent aspiration issues, decrease to 150 mgq HS and with PCP direction taper dose over the next several weeks. metronidazole 500 mg tablet 500 mg PO Q8H 5 Days Qty: 15 0RF Primary Care Provider: Harish Luis Chi Referrals: Harish Luis Chi, MD [Primary Care Provider] - Print Language: [place] Citizen Disposition Disposition: Acute Care Hospital [facility] What to do if you have Problems For any increased pain, shortness of breath, bleeding, nausea or vomiting, chestpain, or any unexpected problems, contact your Primary Care Provider. Call [facility] ([phone]) or report tothe closest Emergency Room. Call 911 if necessary. 09/27/242106 Cosigner Signature (if applicable): CC: Dr. Harish Luis MD ~ Signed [facility]07-12-2025 History and physical note Author Anastasia Khan [facility] Note Date/Time September 27, 2024 3:09 pm [facility] Medical Records Department [address] [place] [address] H&P Exam - Hospitalist 09/27/24 1447 MR#: [id number] Acct: [id number] Name: NIKCAROL Rep #:[id number] : 1950 74 From: Anastasia Khan MD PCP: Dr. Harish Luis MD Status:REG E R Location: ED HPI - General General Date of Admission: 09/27/24 Date of Service: 09/27/24 Chief Complaint: Mechanical fall, recurrent, unable to safely care for self at home HPI Narrative The patient is a 74 y/o F w/ PMHx: CKD stage II per GFR trending, Anxiety and Depression, Chronic oropharyngeal dysphagia with frequent history of aspiration pneumonia, Chronic back pain, Chronic normocytic anemia, Hx VTE, GERD, Tobacco use, recent discharge 09/22/24 following history of recurrent falls and confusion admitted to PCU maintained on aspiration precautions empirically treated with IVantibiotic therapy for aspiration with ST evaluation with eventual clearance forregular diet/thin liquids with direct supervision one-to-one with patient medications for home altered with doxepin decreased and recommended continued taper outpatient, decreased on clonazepam with recommended continued taper outpatient and continued BuSpar given history of frequent falls with strong recommendation for continued hospitalization however patient on 09/22/2024 was extremely adamant for discharge and noted willingness to continue speech therapyevaluations outpatient discharged on oral levaquin/flagyl for an additional 5-day course now presenting to the [facility] ED on 09/27/2024 withhistory of recurrent frequent falls including another on day of presentation when she was try to go through the cupboards unfortunately falling and hit her head with no loss of consciousness nor any neck discomfort but given recurrent event prompted ED evaluation. Workup in the ED included T98.5, heart rate 83, BP114/76, respiratory rate 16, 95% on room air, CBC with WBC 8.5, hemoglobin 10.9,MCV 95.5, platelet 374 without marked shift, CMP with BUN/creatinine 9/0.85, GFR72, glucose 118, AST/ALT 44/20, alk phos 102, ammonia 12.1, urinalysis with specific gravity 1.015, protein 30, occult blood 10, negative nitrite, leukocyteEstrace 500 but no urine RBCs or WBCs and no urine bacteria, CT of the brain with no acute intracranial finding, chest x-ray with stable bilateral lower lungzone consolidation left greater than right compatible with pneumonitis/pneumonia, plain film of the hip and pelvis with no acute bony abnormality, EKG with sinus rhythm with no acute evidence of ischemia. In the ED patient ministered maintenance IV fluids. [facility] Medical History Anxiety and depression Fracture of humeral head Falls Pulmonary emboli Hypoxia Aspiration pneumonia Closed head injury Vitamin D deficiency Irritable bowel syndrome without [...] mg tablet 7.5 mg PO BID ANXIETY 09/20/24 22:00 History 7.5 mg clonazepam 1 mg tablet 0.5 mg (1/2 x 1 mg) PO BID A NXIETY 09/22/24 09/20/24 Rx 14 days #14 tabs doxepin 150 mg capsule 150 mg PO QHS ANXIETY 30 da ys #30 09/22/24 09/20/24 22:00 Rx caps 300 mg levofloxacin 500 mg tablet 500 mg PO DAILY 5 days #5 t abs 09/22/24 Unknown Rx metronidazole 500 mg tablet 500 mg PO Q8H 5 days #15 t abs 09/22/24 Unknown Rx omeprazole 40 mg capsule,delayed 40 mg PO DAILY 30 day s #30 caps 09/22/24 09/20/24 08:00 Rx release 40 mg Allergy/AdvReac Type Severity Reaction Status Date / Time Penicillins Allergy Rash Verified 09/27/24 12:28 Family History Mother Hypertension CVA (cerebral vascular [...] ambulating with a cane ROS ROS Narrative Admission Review of Systems: CONSTITUTIONAL: No weight loss, fever, chills, + weakness or fatigue. HEENT: Eyes: No visual loss, blurred vision, double vision or yellow sclerae. Ears, Nose, Throat: No hearing loss, sneezing, congestion, runny nose or sore throat. SKIN: No rash or itching, lesions, wounds except + very states ecchymoses, bruising with frequent falls. CARDIOVASCULAR: No chest pain, chest pressure or chest discomfort, palpitations,edema, orthopnea, syncopal events. RESPIRATORY: No shortness of breath, cough or sputum, wheezing, hemoptysis. GASTROINTESTINAL: No anorexia, nausea, vomiting or diarrhea, abdominal pain, melena, BRBPR. GENITOURINARY: No dysuria, frequency, urgency or retention. NEUROLOGICAL: + Generalized weakness. No headache, dizziness, syncope, paralysis, ataxia, numbness or tingling in the extremities, focal weakness, change in bowel or bladder control, seizure. MUSCULOSKELETAL: + muscle, back pain, joint pain or stiffness. HEMATOLOGIC: + Chronic anemia, easy bleeding/bruising. LYMPHATICS: No enlarged nodes. No history of splenectomy. PSYCHIATRIC: + History of anxiety and depression. ENDOCRINOLOGIC: No reports of sweating, cold or heat intolerance. No polyuria orpolydipsia. ALLERGIES: No history of asthma, hives, eczema or rhinitis. Vital Signs Vital Signs Vital Signs: 09/27/24 12:26 09/27/24 12:33 09/27/24 12:36 Temperature 98.5 F Temperature Source Oral Pulse Rate 83 Respiratory Rate 16 Respiratory Effort Normal Normal Respiratory Pattern Normal Blood Pressure 114/76 Blood Pressure Mean 88 Pulse Ox 95 Oxygen Delivery Method Room Air Weight Weight: 106 lb 4.205 oz Body Mass Index (BMI) 18.8 Physical Exam Narrative Physical Examination: General: Awake, alert, oriented x 3, remains cooperative, seated upright in ED bed, fatigued, admits to recent recurrent fall. Skin: Normal color, normal turgor, no icterus, no cyanosis except very stage ecchymoses, abrasions. HEENT: AT/NC, EOMI, PERRLA, dry MM, no carotid bruits or JVD noted. Lungs: Mildly diminished, greater bases, mildly increased respiratory rate but no distress, no significant rales, rhonchi or wheezing. Heart: Regular rate and rhythm; no gallop, rub audible. Abdomen: Soft, thin habitus, NTTP, ND, mildly hyperactive BS, no appreciated HSM. Extremities: No cyanosis, no clubbing, mild ankle not markedly pitting edema. Neurological: Patient awake, alert, oriented as noted, cognitive function suspect baseline intact; pupils equally reactive to light and accommodation, cranial nerves grossly normal, moving all 4 extremities, no focal deficits, strength moderately to severely globally decreased. Psychiatric: Affect appears fatigued otherwise normal, no acute evidence of depressive or anxiety feelings but does have underlying history. Results Lab / Micro Data 09/27/24 12:59 09/27/24 12:59 Labs: Laboratory Results - last 24 hr 09/27/24 12:59: WBC 8.5, RBC 3.53 L, Hgb 10.9 L, Hct 33.7 L, MCV 95.5, MCH 30.9,MCHC 32.3, RDW Std Deviation 48.4 H, RDW Coeff of Mehnaz 14.0, Plt Count 374, MPV 10.3, Immature Gran % (Auto) 0.600, Neut % (Auto) 80.5 H, Lymph % (Auto) 11.4 L,Addison % (Auto) 5.9, Eos % (Auto) 1.1, Baso % (Auto) 0.5, Absolute Neuts (auto) 6.8, Absolute Lymphs (auto) 0.97, Nucleated RBC % 0, Sodium 141, Potassium 3.3, Chloride 105, Carbon Dioxide 24.3, Anion Gap 12, BUN 9, Creatinine 0.85, Estim Creat Clear Calc 44.18 L, Est GFR (MDRD) Non-Af 72, BUN/Creatinine Ratio 10.3, Glucose 118 H, Calcium 8.9, Total Bilirubin 0.31, AST 44 H, ALT 20, Alkaline Phosphatase 102, Ammonia 12.1, Total Protein 6.6, Albumin 3.1 L, Globulin 3.5, Albumin/Globulin Ratio 0.9 09/27/24 13:10: Urine Color Yellow, Urine Clarity Sl. Cloudy, Urine pH 6.0, Ur Specific [place] 1.015, Urine Protein 30 H, Urine Glucose (UA) Normal, Urine Ketones Negative, Urine Occult Blood 10 H, Urine Nitrite Negative, Urine Bilirubin Negative, Urine Urobilinogen Normal, Ur Leukocyte Esterase 500 H, Urine RBC 0-5 SEEN, Urine WBC 0-5 SEEN, Ur Squamous Epith Cells 0 SEEN, Urine Bacteria 0 SEEN, Urine Mucus 0 SEEN, Urine Yeast 1+ Micro: Microbiology 09/27/24 13:14 Mucosa - Nose SARS-CoV-2, Influenza & RSV (PCR) - Final Imaging Radiology Impression Brain CT 09/27/24 12:46 IMPRESSION: No acute intracranial finding. Reading Location: [facility] Chest X-Ray 09/27/24 13:25 IMPRESSION: Stable bilateral lower lung zone consolidations, [id number], compatible with pneumonitis/pneumonia. Reading Location: [facility] Pelvis X-Ray 09/27/24 13:50 IMPRESSION: No acute pelvic deformity. Reading Location: [facility] Assessment & Plan Assessment/Plan (1) Falls frequently: (2) Adult failure to thrive: PLAN: Plan The patient is a 74 y/o F w/ PMHx: CKD stage II per GFR trending, Anxiety and Depression, Chronic oropharyngeal dysphagia with frequent history of aspiration pneumonia, Chronic back pain, Chronic normocytic anemia, Hx VTE, GERD, Tobacco use, recent discharge 09/22/24 following history of recurrent falls and confusion admitted to PCU maintained on aspiration precautions empirically treated with IVantibiotic therapy for aspiration with ST evaluation with eventual clearance forregular diet/thin liquids with direct supervision one-to-one with patient medications for home altered with doxepin decreased and recommended continued taper outpatient, decreased on clonazepam with recommended continued taper outpatient and continued BuSpar given history of frequent falls with strong recommendation for continued hospitalization however patient on 09/22/2024 was extremely adamant for discharge and noted willingness to continue speech therapyevaluations outpatient discharged on oral levaquin/flagyl for an additional 5-day course now presenting to the [facility] ED on 09/27/2024 withhistory of recurrent frequent falls including another on day of presentation when she was try to go through the cupboards unfortunately falling and hit her head with no loss of consciousness nor any neck discomfort but given recurrent event prompted ED evaluation. #1. Adult FTT with serial mechanical falls, unsafe to be living at home given possibility of recurrent trauma: Will admit to medical surgical floor, maintain on fall and aspiration precautions, will continue as noted with reduced dose of doxepin and reduced dose of clonazepam with transition to assisted facility once precertification obtained with ongoing slow taper of these two agents to avoid withdrawal, continued on buspirone at this time, PT/OT/case management consulted for discharge planning with likely assisted facilityneeds. is present and is her healthcare power of assistant attorney general and requesting that she be placed at this time for her safety. Given patient is familiar with Dr. Luis who is per assisting in her tapering process, they are requesting TCU. #2. Recent presentation with oropharyngeal chronic dysphagia with suspected aspiration pneumonia: Recent presentation with aspiration pneumonia, speech therapy evaluation with clearance for regular diet/thin liquids with direct supervision one-to-one, will continue ST evaluation as well as aspiration precautions, will continue levaquin/flagyl oral regimen to completion. #3. Chronic Kidney Disease Stage II per GFR trending: Admission BUN/Cr 9/0.85, GFR 72, baseline renal function primarily 0.7-0.9 but is vacillated, repeat BMP in AM. #4. Anxiety and depression: Will continue only buspirone, continue reduced doseof doxepin as well as reduced dose of clonazepam with again at discharge continued aggressive closely monitored wean as this patient is unsafe for continued sedate of medications as she is frequently falling and may benefit from more aggressive alternate regimen as well as counseling. #5. Chronic back pain, debility with cervical stenosis, scoliosis of the spine:Status post surgical intervention of the spine, encourage offloading, positionalchanges, Tylenol as needed. #6. History of VTE: Patient with history of DVT, PE previously, had been felt provoked at that time secondary to immobility, previously had been on Eliquis, maintained on chemoprophylaxis with Lovenox. #7. Chronic normocytic anemia: Admission hemoglobin 10.9, MCV 95.5, baseline hemoglobin more recently 10-11 range, stable, continue to monitor. #8. Tobacco use: Encourage continued tobacco cessation. #9. GERD: Will continue patient on PPI. #10. DVT Prophylaxis: Lovenox cautiously given fall history. #11. CODE status: Patient SUNITA is her and living will is currently in place. Full Code status. Charges/Coding Visit Charges Inpatient E&M: 30386 Init Hosp L3 09/27/24 1501 <Electronically signed by Anastasia Khan MD> Cosigner Signature (if applicable): CC: Dr. Anastasia Khan MD; Dr. Harish Luis MD~ Signed [facility] Work Phone: [phone] 160-616007-12-2025 History and physical note [facility] Medical Records Department [address] [place] [id number] H&P Exam - Hospitalist 09/27/24 1447 MR#: [id number] Acct: [id number] Name: CAROL DAVID Rep #:[id number] : 1950 74 From: Anastasia Khan MD PCP: Dr. Harish Luis MD Status:REG E R Location: ED HPI - General General Date of Admission: 09/27/24 Date of Service: 09/27/24 Chief Complaint: Mechanical fall, recurrent, unable to safely care for self at home HPI Narrative The patient is a 74 y/o F w/ PMHx: CKD stage II per GFR trending, Anxiety and Depression, Chronic oropharyngeal dysphagia with frequent history of aspiration pneumonia, Chronic back pain, Chronic normocytic anemia, Hx VTE, GERD, Tobacco use, recent discharge 09/22/24 following history of recurrent falls and confusion admitted to PCU maintained on aspiration precautions empirically treated with IVantibiotic therapy for aspiration with ST evaluation with eventual clearance forregular diet/thin liquids with direct supervision one-to-one with patient medications for home altered with doxepin decreased and recommended continued taper outpatient, decreased on clonazepam with recommended continued taper outpatient and continued BuSpar given history of frequent falls with strong recommendation for continued hospitalization however patient on 09/22/2024 was extremely adamant for discharge and noted willingness to continue speech therapyevaluations outpatient discharged on oral levaquin/flagyl for an additional 5-day course now presenting to the [facility] ED on 09/27/2024 withhistory of recurrent frequent falls including another on day of presentation when she was try to go through the cupboards unfortunately falling and hit her head with no loss of consciousness nor any neck discomfort but given recurrent event prompted ED evaluation. Workup in the ED included T98.5, heart r ate 83, BP114/76, respiratory rate 16, 95% on room air, CBC with WBC 8.5, hemoglobin 10.9,MCV 95.5,platelet 374 without marked shift, CMP with BUN/creatinine 9/0.85, GFR72, glucose 118, AST/ALT 44/20, alk phos 102, ammonia 12.1, urinalysis with specific gravity 1.015, protein 30, occult blood 10, n egative nitrite, leukocyteEstrace 500 but no urine RBCs or WBCs and no urine bacteria, CT of the brain with no acute intracranial finding, chest x-ray with stable bilateral lower lungzone consolidation left greater than right compatible with pneumonitis/pneumonia, plain film of the hip and pelvis with no acute bony abnormality, EKG with sinus rhythm with no acute evidence of ischemia. In the ED patient ministered maintenance IV fluids. [facility] Medical History Anxiety and depression Fracture of humeral head Falls Pulmonary emboli Hypoxia Aspiration pneumonia Closed head injury Vitamin D deficiency Irritable bowel syndrome without [...] mg tablet 7.5 mg PO BID ANXIETY 09/20/24 22:00 History 7.5 mg clonazepam 1 mg tablet 0.5 mg (1/2 x 1 mg) PO BID A NXIETY 07/07/25 07/05/25 Rx 14 days #14 tabs doxepin 150 mg capsule 150 mg PO QHS ANXIETY 30 da ys #30 09/22/24 09/20/24 22:00 Rx caps 300 mg levofloxacin 500 mg tablet 500 mg PO DAILY 5 days #5 t abs 09/22/24 Unknown Rx metronidazole 500 mg tablet 500 mg PO Q8H 5 days #15 t abs 09/22/24 Unknown Rx omeprazole 40 mg capsule,delayed 40 mg PO DAILY 30 day s #30 caps 09/22/24 09/20/24 08:00 Rx release 40 mg Allergy/AdvReac Type Severity Reaction Status Date / Time Penicillins Allergy Rash Verified 09/27/24 12:28 Family History Mother Hypertension CVA (cerebral vascular [...] ambulating with a cane ROS ROS Narrative Admission Review of Systems: CONSTITUTIONAL: No weight loss, fever, chills, + weakness or fatigue. HEENT: Eyes: No visual loss, blurred vision, double vision or yellow sclerae. Ears, Nose, Throat: No hearing loss, sneezing, congestion, runny nose or sore throat. SKIN: No rash or itching, lesions, wounds except + very states ecchymoses, bruising with frequent falls. CARDIOVASCULAR: No chest pain, chest pressure or chest discomfort, palpitations,edema, orthopnea, syncopal events. RESPIRATORY: No shortness of breath, cough or sputum, wheezing, hemoptysis. GASTROINTESTINAL: No anorexia, nausea, vomiting or diarrhea, abdominal pain, melena, BRBPR. GENITOURINARY: No dysuria, frequency, urgency or retention. NEUROLOGICAL: + Generalized weakness. No headache, dizziness, syncope, paralysis, ataxia, numbness or tingling in the extremities, focal weakness, change in bowel or bladder control, seizure. MUSCULOSKELETAL: + muscle, back pain, joint pain or stiffness. HEMATOLOGIC: + Chronic anemia, easy bleeding/bruising. LYMPHATICS: No enlarged nodes. No history of splenectomy. PSYCHIATRIC: + History of anxiety and depression. ENDOCRINOLOGIC: No reports of sweating, cold or heat intolerance. No polyuria orpolydipsia. ALLERGIES: No history of asthma, hives, eczema or rhinitis. Vital Signs Vital Signs Vital Signs: 09/27/24 12:26 09/27/24 12:33 09/27/24 12:36 Temperature 98.5 F Temperature Source Oral Pulse Rate 83 Respiratory Rate 16 Respiratory Effort Normal Normal Respiratory Pattern Normal Blood Pressure 114/76 Blood Pressure Mean 88 Pulse Ox 95 Oxygen Delivery Method Room Air Weight Weight: 106 lb 4.205 oz Body Mass Index (BMI) 18.8 Physical Exam Narrative Physical Examination: General: Awake, alert, oriented x 3, remains cooperative, seated upright in ED bed, fatigued, admits to recent recurrent fall. Skin: Normal color, normal turgor, no icterus, no cyanosis except very stage ecchymoses, abrasions. HEENT: AT/NC, EOMI, PERRLA, dry MM, no carotid bruits or JVD noted. Lungs: Mildly diminished, greater bases, mildly increased respiratory rate but no distress, no significant rales, rhonchi or wheezing. Heart: Regular rate and rhythm; no gallop, rub audible. Abdomen: Soft, thin habitus, NTTP, ND, mildly hyperactive BS, no appreciated HSM. Extremities: No cyanosis, no clubbing, mild ankle not markedly pitting edema. Neurological: Patient awake, alert, oriented as noted, cognitive function suspect baseline intact; pupils equally reactive to light and accommodation, cranial nerves grossly normal, moving all 4 extremities, no focal deficits, strength moderately to severely globally decreased. Psychiatric: Affect appears fatigued otherwise normal, no acute evidence of depressive or anxiety feelings but does have underlying history. Results Lab / Micro Data 09/27/24 12:59 09/27/24 12:59 Labs: Laboratory Results - last 24 hr 09/27/24 12:59: WBC 8.5, RBC 3.53 L, Hgb 10.9 L, Hct 33.7 L, MCV 95.5, MCH 30.9,MCHC 32.3, RDW Std Deviation 48.4 H, RDW Coeff of Mehnaz 14.0, Plt Count 374, MPV 10.3, Immature Gran % (Auto) 0.600, Neut% (Auto) 80.5 H, Lymph % (Auto) 11.4 L,Addison % (Auto) 5.9, Eos % (Auto) 1.1, Baso % (Auto) 0.5, Absolute Neuts (auto) 6.8, Absolute Lymphs (auto) 0.97, Nucleated RBC % 0, Sodium 141, Potassium 3.3, Chloride 105, Carbon Dioxide 24.3, Anion Gap 12, BUN 9, Creatinine 0.85, Estim Creat Clear Calc 44.18 L, Est GFR (MDRD) Non-Af 72, BUN/Creatinine Ratio 10.3, Glucose 118 H, Calcium 8.9, Total Bilirubin 0.31, AST 44 H, ALT 20, Alkaline Phosphatase 102, Ammonia 12.1, Total Protein 6.6, Albumin 3.1 L, Globulin 3.5, Albumin/Globulin Ratio 0.9 09/27/24 13:10: Urine Color Yellow, Urine Clarity Sl. Cloudy, Urine pH 6.0, Ur Specific [place] 1.015, Urine Protein 30 H, Urine Glucose (UA) Normal, Urine Ketones Negative, Urine Occult Blood 10 H, Urine Nitrite Negative, Urine Bilirubin Negative, Urine Urobilinogen Normal, Ur Leukocyte Esterase 500 H, Urine RBC 0-5 SEEN, Urine WBC 0-5 SEEN, Ur Squamous Epith Cells 0 SEEN, Urine Bacteria 0 SEEN,Urine Mucus 0 SEEN, Urine Yeast 1+ Micro: Microbiology 09/27/24 13:14 Mucosa - Nose SARS-CoV-2, Influenza & RSV (PCR) - Final Imaging Radiology Impression Brain CT 09/27/24 12:46 IMPRESSION: No acute intracranial finding. Reading Location: [facility] Chest X-Ray 09/27/24 13:25 IMPRESSION: Stable bilateral lower lung zone consolidations, [id number], compatible with pneumonitis/pneumonia. Reading Location: [facility] Pelvis X-Ray 09/27/24 13:50 IMPRESSION: No acute pelvic deformity. Reading Location: [facility] Assessment & Plan Assessment/Plan (1) Falls frequently: (2) Adult failure to thrive: PLAN: Plan The patient is a 74 y/o F w/ PMHx: CKD stage II per GFR trending, Anxiety and Depression, Chronic oropharyngeal dysphagia with frequent history of aspiration pneumonia, Chronic back pain, Chronic normocytic anemia, Hx VTE, GERD, Tobacco use, recent discharge 09/22/24 following history of recurrent falls and confusion admitted to PCU maintained on aspiration precautions empirically treated with IVantibiotic therapy for aspiration with ST evaluation with eventual clearance forregular diet/thin liquids with direct supervision one-to-one with patient medications for home altered with doxepin decreased and recommended continued taper outpatient, decreased on clonazepam with recommended continued taper outpatient and continued BuSpar given history of frequent falls with strong recommendation for continued hospitalization however patient on 09/22/2024 was extremely adamant for discharge and noted willingness to continue speech therapyevaluations outpatient discharged on oral levaquin/flagyl for an additional 5-day course now presenting to the [facility] ED on 09/27/2024 withhistory of recurrent frequent falls including another on day of presentation when she was try to go through the cupboards unfortunately falling and hit her head with no loss of consciousness nor any neck discomfort but given recurrent event prompted ED evaluation. #1. Adult FTT with serial mechanical falls, unsafe to be living at home given possibility of recurrent trauma: Will admit to medical surgical floor, maintain on fall and aspiration precautions, will continue as noted with reduced dose of doxepin and reduced dose of clonazepam with transition to assisted facility once precertification obtained with ongoing slow taper of these two agents to avoid withdrawal, continued on buspirone at this time, PT/OT/case management consulted for dischargeplanning with likely assisted facilityneeds. is present and is her healthcare power of assistant attorney general and requesting that she be placed at this time for her safety. Given patient is familiarwith Dr. Luis who is per assisting in her tapering process, they are requesting TCU. #2. Recent presentation with oropharyngeal chronic dysphagia with suspected aspiration pneumonia: Recent presentation with aspiration pneumonia, speech therapy evaluation with clearance for regular diet/thin liquids with direct supervision one-to-one, will continue ST evaluation as well as aspiration precautions, will continue levaquin/flagyl oral regimen to completion. #3. Chronic Kidney Disease Stage II per GFR trending: Admission BUN/Cr 9/0.85, GFR 72, baseline renal function primarily 0.7-0.9 but is vacillated, repeat BMP in AM. #4. Anxiety and depression: Will continue only buspirone, continue reduced doseof doxepin as well as reduced dose of clonazepam with again at discharge continued aggressive closely monitored wean as this patient is unsafe for continued sedate of medications as she is frequently falling and may benefit from more aggressive alternate regimen as well as counseling. #5. Chronic back pain, debility with cervical stenosis, scoliosis of the spine:Status post surgicalintervention of the spine, encourage offloading, positionalchanges, Tylenol as needed. #6. History of VTE: Patient with history of DVT, PE previously, had been felt provoked at that timesecondary to immobility, previously had been on Eliquis, maintained on chemoprophylaxis with Lovenox. #7. Chronic normocytic anemia: Admission hemoglobin 10.9, MCV 95.5, baseline hemoglobin more recently 10-11 range, stable, continue to monitor. #8. Tobacco use: Encourage continued tobacco cessation. #9. GERD: Will continue patient on PPI. #10. DVT Prophylaxis: Lovenox cautiously given fall history. #11. CODE status: Patient SUNITA is her and living will is currently in place. Full Code status. Charges/Coding Visit Charges Inpatient E&M: 06331 Init Hosp L3 09/27/24 7234 Cosigner Signature (if applicable): CC: Dr. Anastasia Khan MD; Dr. Harish Luis MD~ Signed [facility]07-12-2025 Radiology Diagnostic study note [facility] Imaging Services [address] [address] Pelvis 1 or 2 Views MR#: [id number] Acct: [id number] Name: CAROL DAVID Rep #: [id number] : 1950 F 74 From: Maria Victoria Rosario MD PCP: Dr. Harish Luis MD Status: REG E R Study:Pelvis 1 or 2 Views Date of Exam: 09/27/24 Exam# [id number] Ordering Dr: Jovanna Rosales DO PROCEDURE: PELVIS 1 OR 2 VIEWS 09/27/2024 REASON FOR EXAM: FALL TECHNIQUE: PELVIS 1 OR 2 VIEWS FINDINGS: AP view of the pelvis demonstrates a catheter projecting over the left abdomen and pelvis of uncertain source in the etiology. Possibly a catheter from a prior spinal stimulator RAD/Pelvis 1 or 2 Views IMPRESSION: No acute pelvic deformity. Reading Location: [facility] CC: Dr. Dimitry Rosales DO; Dr. Harish Luis MD ~ Machine Stamper: Signed [facility]07-12-2025 Radiology Diagnostic study note [facility] Imaging Services [address] [place] [id number] Chest 1 View (Portable) MR#: [id number] Acct: [id number] Name: CAROL DAVID Rep #: [id number] : 1950 F 74 From: Melissa Silvestre MD PCP: Dr. Harish Luis MD Status: REG E R Study:Chest 1 View (Portable) Date of Exam: 09/27/24 Exam# [id number] Ordering Dr: Jovanna Rosales DO PROCEDURE: CHEST 1 VIEW (PORTABLE) 09/27/2024 REASON FOR EXAM: FALLS TECHNIQUE: Frontal view of the chest. COMPARISON: Chest radiograph and CT chest 09/21/2024. FINDINGS: Hardware: Partially visualized spinal stimulator leads overlying the thoracic spine. Partially visualized dental hardware. Heart: Cardiac and mediastinal contours are stable. Lungs: No significant change in size of the bilateral lower lung zone consolidations, [id number]-right. No large pleural effusion or pneumothorax. Bones: Degenerative changes are identified within the thoracic spine. RAD/Chest 1 View (Portable) IMPRESSION: Stable bilateral lower lung zone consolidations, [id number]-[id number]-right, compatible with pneumonitis/pneumonia. Reading Location: [facility] CC: Dr. Dimitry Rosales DO; Dr. Harish Luis MD ~ Machine Stamper: Signed [facility]07-12-2025 Radiology Diagnostic study note [facility] Imaging Services [address] [place], [place] [id number] Brain/Head without Contrast MR#: [id number] Acct: [id number] Name: CAROL DAVID Rep #: [id number] : 1950 F 74 From: Melissa Silvestre MD PCP: Dr. Harish Luis MD Status: REG E R Study:Brain/Head without Contrast Date of Exa m: 09/27/24 Exam# [id number] Ordering Dr: Jovanna Rosales DO EXAM: BRAIN/HEAD WITHOUT CONTRAST CLINICAL HISTORY: 74 y/o F with FALLS. COMPARISON: CT head 09/22/2024. TECHNIQUE: Routine CT imaging of the head without IV contrast. Additional multiplanar reformats were obtained. Dose reduction techniques were used including intermediate exposure control (AEC),iterative reconstruction technique, and/or mA and/or KV dose adjustments based on patient's size. FINDINGS: The ventricles, sulci and cisterns are normal for patient age. There is no evidence of acute intracranial hemorrhage or herniation. There is no midline shift, mass effect, or extra-axial collection. Mild patchy supratentorial white matter hypodensities. The moy-white matter interfaces are otherwise maintained. The orbits, visualized paranasal sinuses and mastoids are unremarkable. No acute calvarial fracture or scalp hematoma. CT/Brain/Head without Contrast IMPRESSION: No acute intracranial finding. Reading Location: [id number] CC: Dr. Dimitry Rosales DO; Dr. Harish Luis MD ~ Machine Stamper: Signed [facility]07-07-2025 Discharge summary [facility] Medical Records Department [address] [place] [address] Instructions for Home/Discharge Instructions 09/22/24 1807 MR#: [id number] Acct: [id number] Name: CAROL DAVID Rep #:[id number] : 1950 74 From: Anastasia Khan MD PCP: Dr. Harish Luis MD Status:ADM I NO Discharge Instructions Diet Discharge Diet: - (Regular diet/thin liquids with direct supervision one-to-one) DC O2, CPAP, BIPAP needs Home O2 Discharge instructions: No Dressing / Incision Discharge Activity: - (Encourage routine activity in the home with assistive devices for added support.) May resume sexual activity in: No Restrictions Weight Bearing Status: Weight bearing as tolerated Dressing / Incision Call your doctor if you observe: Fever of 101 or Higher, Numbness or Tingling, Shortness of breath,Dizziness, Chest pain, Increased palpitations (irregular heartbeat), Calf discomfort and Uncontrolled pain Follow Up Care Test Results: Test results from this visit will be discussed in further detail at your follow- up appointment, if applicable. Discharge Plan Admission Admit Date/Time: 09/21/24 20:12 Primary Reason for Your Visit: Encephalopathy, Aspiration PNA Attending Provider: Anastasia Khan Primary Care Provider: Harish Luis Chi Consulting Providers: Ricardo Justice Instructions Patient Instructions: Dysphagia Aspiration, Dysphagia Aspiration Tx Additional Instructions / Restrictions: ADDITIONAL DISCHARGE INFORMATION/INSTRUCTIONS: #1. Acute Encephalopathy (CONFUSION), suspected multifactorial, secondary to Acute Suspected Aspiration Pneumonia with known chronic oropharyngeal dysphagia in addition to Chronic sedation medication(Doxepin, Buspar, Clonazepam all concurrently) usage with persistent debility, mechanical falls: -- Maintain initially on IV Levaquin and IV Flagyl while inpatient given allergyhistory, transitionto oral regimen for an additional 5-day duration at discharge. --CT head upon admission with no acute findings and repeat CT head at approximately 24 hours unremarkable. --ST evaluation with recommendation for regular diet/thin liquids with direct supervision one-to-one. --Encourage continued outpatient ST evaluation and ongoing evaluations with prescription given. --Given significant sedated regimen we recommend at this time decreasing doxepinto 150 mg nightly and further decreasing this slowly to avoid notable withdrawalsymptoms in addition to transition of clonazepam from 1 mg p.o. 3 times daily to0.5 mg twice daily and continue tapering down per PCP in addition. At this timewe will continue currently prescribed buspirone regimen. Would benefit from alternate medication for insomnia consideration. Discharge Orders/Prescriptions Prescriptions: New levofloxacin 500 mg tablet 500 mg PO DAILY 5 Days Qty: 5 0RF metronidazole 500 mg tablet 500 mg PO Q8H 5 Days Qty: 15 0RF Continued buspirone 7.5 MG tablet 7.5 mg PO BID Changed clonazepam 1 MG tablet 0.5 mg PO BID 14 Days Qty: 14 0RF Rx Instructions: Please cut back to 0.5 mg BID and follow closely with PCP to have directed taper off given already on buspirone regimen also. omeprazole 40 mg capsule,delayed release(DR/EC) 40 mg PO DAILY 30 Days Qty: 30 0RF Patient Comments: pt states she take the med once a day but not every day doxepin 150 mg capsule 150 mg PO QHS 30 Days Qty: 30 0RF Rx Instructions: Given notable encephalopathy, recurrent aspiration issues, decrease to 150 mgq HS and with PCP direction taper dose over the next several weeks. Referrals / Follow Up: Harish Luis Chi, MD [Primary Care Provider] - (Follow-up within PCP within 3-5 days.) Disposition Disposition (needs filled in before D/C Order can be placed): Home Health Service 09/22/24 1808Avj Khan MD CC: Dr. Ricardo Justice DO; Dr. Harish Luis MD ~ Signed [facility]07-07-2025 Discharge summary [facility] Medical Records Department [address] [place] [address] Discharge Summary 09/22/24 1737 MR#: [id number] Acct: [id number] Name: CAROL DAVID Rep #:[id number] : 1950 74 From: Anastasia Khan MD PCP: Dr. Harish Luis MD Status:ADM I NO Location: [place] [address] Providers Date of Admission: 09/21/24 Date of Discharge: 09/22/24 Primary Care Physician: Dr. Harish Luis MD Reason For Visit: FREQUENT FALLS, CONFUSION & RECENT ASPIRATION Diagnosis Discharge Diagnosis (1) Aspiration pneumonia: Status: Acute Code(s): J69.0 - Pneumonitis due to inhalation of food and vomit Qualifiers: Aspiration pneumonia type: unspecified Laterality: left Lung location:lower lobe of lung Qualified Code(s): J69.0 - Pneumonitis due to inhalation of food and vomit Plan: DISCHARGE DIAGNOSES: #1. Acute Encephalopathy, suspected multifactorial, secondary to Acute Suspected Aspiration PNA (possible GN organisms) with known chronic oropharyngeal dysphagia in addition to Chronic BZD usage with persistent debility, mechanical falls #2. Anxiety and depression #3. Chronic back pain, debility with cervical stenosis, scoliosis of the spine #4. History of VTE #5. Chronic normocytic anemia #6. Tobacco use #7. GERD #8. CODE status: Patient SUNITA is her and living will is currently in place. Full Code status. Medications at Discharge Home Medications buspirone 7.5 mg tablet 7.5 mg PO BID ANXIETY 02/17/20 clonazepam 1 mg tablet 0.5 mg (1/2 x 1 mg) PO BID ANXIETY 14 days #14 tabs 09/22/24 doxepin 150 mg capsule 150 mg PO QHS ANXIETY 30 days #30 caps 09/22/24 levofloxacin 500 mg tablet 500 mg PO DAILY 5 days #5 tabs 09/22/24 metronidazole 500 mg tablet 500 mg PO Q8H 5 days #15 tabs 09/22/24 omeprazole 40 mg capsule,delayed release 40 mg PO DAILY 30 days #30 caps 09/22/24 Hospital Course Operations None Procedures None Summary of Care Provided Minutes Spent on Discharge: 35 Hospital Course: The patient is a 74 y/o F w/ PMHx: Anxiety and Depression, Chronic oropharyngealdysphagia with frequent history of aspiration pneumonia, Chronic back pain, Chronic normocytic anemia, Hx VTE, GERD, Tobacco use who presented to the [facility] 09/21/24 with history of recurrent confusion and falls. Admitted to PCU, maintained on aspiration precautions, started on empiric therapy with IV Levaquin and Flagyl given allergy history w/ aspiration concerns, initially NPO with ST evaluation with eventual clearance for regular diet/thin liquids with direct supervision one-to-one, presentation CT imaging with no acute findings and given unable to perform MRI brain secondary to leads present, thus be cautious repeat CT head obtained with again no acute findings. Mental status returned to baseline. Given heavily sedative medication patient doxepin decreased, temporarily held clonazepam and continue BuSpar. However given patient's significant regimen at discharge she was continued on half dose of thedoxepin with recommended continued weaning per primary care physician in addition to wean at the least initial phase of aggressive clonazepam regimen with again close follow-up with primary care physician to further wean with continuation only of the scheduled BuSpar regimen. Strongly encouraged this wean and alteration of regimen as benzodiazepine and high dose doxepin likely contributing to heavy fall risk and aspiration potentially. Patient on 09/22/2024despite strong recommendation to remain inpatient for continued evaluation and care was adamant about being discharged to home but was at least willing to remain for ST evaluation and repeat CT of the head. Given these recommendationsare now inplace and repeat CT head is negative will plan discharge to home withearly close follow-up with primary care physician and continued outpatient ST evaluations and treatment with prescription given. Upon discharge transition tooral Levaquin and Flagyl for more anaerobic coverage for aspiration concerns with plan for an additional 5-day course. Again at discharge strongly encouraged the medication changes for decreasing sedation and weaning with continued close early follow-up with PCP. Patient clinically did improve quicker than expected and was mentating appropriately on 09/22/2024 however as no mile did encourage her to remain but she was adamant about discharge. Weight / BMI Weight Weight: 105 lb 6.095 oz Body Mass Index (BMI) 18.6 ABG / Lab / Microbiology Data 09/22/24 04:26 09/22/24 04:26 Laboratory: Laboratory Results - last 24 hr 09/21/24 18:15: Sodium 140, Potassium 3.8, Chloride 105, Carbon Dioxide 24.7, Anion Gap 10, BUN 8, Creatinine 0.97, Estim Creat Clear Calc 40.24 L, Est GFR (MDRD) Non-Af 61, BUN/Creatinine Ratio 8.7 L, Glucose 118 H, Hemoglobin A1c 5.5,Calcium 9.0, Magnesium 1.9, Total Bilirubin 0.47, AST 30, ALT 11, Alkaline Phosphatase 113 H, Total Protein 6.4, Albumin 3.3 L, Globulin 3.1, Albumin/Globulin Ratio 1.1, Vitamin B12 757, TSH 0.358 09/21/24 18:36: WBC 8.0, RBC 3.64 L, Hgb 11.4 L, Hct 34.9 L, MCV 95.9, MCH 31.3,MCHC 32.7, RDW Std Deviation 48.4 H, RDW Coeff of Mehnaz 13.8, Plt Count 339, MPV 10.0, Immature Gran % (Auto) 0.200, Neut% (Auto) 79.3 H, Lymph % (Auto) 11.2 L,Addison % (Auto) 8.7, Eos % (Auto) 0.2, Baso % (Auto) 0.4, Absolute Neuts (auto) 6.4, Absolute Lymphs (auto) 0.90, Nucleated RBC % 0 09/21/24 18:50: Urine Color Yellow, Urine Clarity Clear, Urine pH 6.0, Ur Specific [place] 1.015, Urine Protein 15 H, Urine Glucose (UA) Normal, Urine Ketones Negative, Urine Occult Blood Negative, Urine Nitrite Negative, Urine Bilirubin Negative, Urine Urobilinogen Normal, Ur Leukocyte Esterase 100 H, Urine RBC 0 SEEN, Urine WBC 0-5 SEEN, Ur Squamous Epith Cells 0 SEEN, Urine Bacteria 2+, Urine Mucus 0 SEEN, Urine Yeast 1+, Urine Opiates Screen NEGATIVE, U Buprenorphine Qual NEGATIVE, Ur Oxycodone Screen NEGATIVE, Urine Methadone Screen NEGATIVE, Urine Fentanyl Screen NEGATIVE, Ur Barbiturates Screen NEGATIVE, Ur Phencyclidine Scrn NEGATIVE, Ur Amphetamines Screen NEGATIVE, U Benzodiazepines Scrn PRESUMPTIVE POSITIVE, Urine Cocaine Screen NEGATIVE, U Cannabinoids Screen NEGATIVE 09/21/24 18:55: Lactic Acid 1.1 09/21/24 20:21: Ethyl Alcohol < 10.1 09/21/24 21:00: Serum Folate 6.21 09/22/24 04:26: WBC 5.5, RBC 3.45 L, Hgb 10.8 L, Hct 33.1 L, MCV 95.9, MCH 31.3,MCHC 32.6, RDW Std Deviation 48.6 H, RDW Coeff of Mehnaz 13.8, Plt Count 319, MPV 9.2, Immature Gran % (Auto) 0.400, Neut % (Auto) 61.9, Lymph % (Auto) 26.9, Addison% (Auto) 8.5, Eos % (Auto) 1.8, Baso % (Auto) 0.5, Absolute Neuts (auto) 3.4, Absolute Lymphs (auto) 1.48, Nucleated RBC % 0, D-Dimer Quant (PE/DVT) 0.32, Sodium 143, Potassium 3.7, Chloride 111 H, Carbon Dioxide 23.5, Anion Gap 8, BUN7, Creatinine 0.74, EstimCreat Clear Calc 46.56 L, Est GFR (MDRD) Non-Af 86, BUN/Creatinine Ratio 9.7 L, Glucose 76, Calcium8.5, Phosphorus 3.1, Total Bilirubin 0.46, AST 26, ALT 11, Alkaline Phosphatase 98, Total Protein 5.6 L, Albumin 2.9 L, Globulin 2.7, Albumin/Globulin Ratio 1.1, Triglycerides 81, Cholesterol 217 H, LDL Cholesterol, Calc 132, VLDL Cholesterol 16, HDL Cholesterol 69, Cholesterol/HDL Ratio 3.16 Microbiology: Microbiology 09/21/24 18:52 Mucosa - Nose SARS-CoV-2, Influenza & RSV (PCR) - Final ABG: ABG 09/22/24 04:33 Specimen Type PEYTON Sample Site VENOUS VBG pH 7.39 VBG pO2 39 VBG HCO3 29 H VBG Total CO2 30 VBG O2 Sat (Calc) 72 H VBG Base Excess 4 H POC Mix VBG pCO2 Pt Tmp 48.3 O2 Delivery Device Room Air Radiography Diagnostic Testing: Radiology Impression Brain CT 09/21/24 18:37 IMPRESSION: No acute abnormality Reading Location: [facility] Chest X-Ray 09/21/24 19:18 IMPRESSION: Improvement in bilateral hilar and basilar infiltrates Reading Location: [facility] Chest CT 09/21/24 20:09 IMPRESSION: Residual consolidating airspace disease in the left lower lobe right lower lobe to lesser degree consistent with history of aspiration pneumonia. Coronary artery calcification (CAC) is difficult to visualize due to presence ofmetallic streak artifact suspected metallic heart stents. Correlate with cardiac history. Small hiatal hernia Thoraco lumbar spine area anterior wedge compression fracture Reading Location: [facility] Brain CT 09/22/24 15:04 IMPRESSION: No acute intracranial process. Consider MR if symptoms persist. Reading Location: [id number] D/C Instructions DC O2, CPAP, BIPAP Needs Home O2 Discharge instructions: No Meaningful Use Info Meaningful Use Meaningful Use Diagnoses (Choose all that apply): None applicable Ischemic Stroke Statin Dosing Therapy Reference: STATIN DOSE THERAPY REFERENCE: * Patients > 75 years receive moderate or high dose statin therapy. * Patients 75 years or YOUNGER should receive HIGH intensity statin dose unless contraindicated. You will be required to document reason for non-treatment if statin daily dose does not meet guidelines. HIGH DOSE STATIN THERAPY DAILY Atorvastatin > than or = to 40 mg Rosuvastatin > than or = to 20 mg Amlodipine + Atorvastatin > than or = to 2.5/40 mg Ezetimibe + Simvastatin 10/80 mg Simvastatin 80mg Discharge Plan Admission Admit Date/Time: 09/21/24 20:12 Primary Reason for Your Visit: Encephalopathy, Aspiration PNA Attending Provider: Anastasia Khan Primary Care Provider: Harish Luis Chi Consulting Providers: Ricardo Justice Instructions Patient Instructions: Dysphagia Aspiration, Dysphagia Aspiration Tx Additional Instructions / Restrictions: ADDITIONAL DISCHARGE INFORMATION/INSTRUCTIONS: #1. Acute Encephalopathy (CONFUSION), suspected multifactorial, secondary to Acute Suspected Aspiration Pneumonia with known chronic oropharyngeal dysphagia in addition to Chronic sedation medication(Doxepin, Buspar, Clonazepam all concurrently) usage with persistent debility, mechanical falls: -- Maintain initially on IV Levaquin and IV Flagyl while inpatient given allergyhistory, transitionto oral regimen for an additional 5-day duration at discharge. --CT head upon admission with no acute findings and repeat CT head at approximately 24 hours unremarkable. --ST evaluation with recommendation for regular diet/thin liquids with direct supervision one-to-one. --Encourage continued outpatient ST evaluation and ongoing evaluations with prescription given. --Given significant sedated regimen we recommend at this time decreasing doxepinto 150 mg nightly and further decreasing this slowly to avoid notable withdrawalsymptoms in addition to transition of clonazepam from 1 mg p.o. 3 times daily to0.5 mg twice daily and continue tapering down per PCP in addition. At this timewe will continue currently prescribed buspirone regimen. Would benefit from alternate medication for insomnia consideration. Discharge Orders/Prescriptions Prescriptions: New levofloxacin 500 mg tablet 500 mg PO DAILY 5 Days Qty: 5 0RF metronidazole 500 mg tablet 500 mg PO Q8H 5 Days Qty: 15 0RF Continued buspirone 7.5 MG tablet 7.5 mg PO BID Changed clonazepam 1 MG tablet 0.5 mg PO BID 14 Days Qty: 14 0RF Rx Instructions: Please cut back to 0.5 mg BID and follow closely with PCP to have directed taper off given already on buspirone regimen also. omeprazole 40 mg capsule,delayed release(DR/EC) 40 mg PO DAILY 30 Days Qty: 30 0RF Patient Comments: pt states she take the med once a day but not every day doxepin 150 mg capsule 150 mg PO QHS 30 Days Qty: 30 0RF Rx Instructions: Given notable encephalopathy, recurrent aspiration issues, decrease to 150 mgq HS and with PCP direction taper dose over the next several weeks. Referrals / Follow Up: Harish Luis Chi, MD [Primary Care Provider] - (Follow-up within PCP within 3-5 days.) Disposition Disposition (needs filled in before D/C Order can be placed): Home Health Service Charges/Coding Visit Charges Inpatient E&M: 83831 Disch Hosp >30min 09/22/24 5611 Cosigner Signature (if applicable): CC: Dr. Anastasia Khan MD; Dr. Harish Luis MD~ Signed [facility]07-07-20[facility] Progress note [facility] Medical Records Department [address] [place] [address] Progress Note - Hospitalist 09/22/24726 MR#: [id number] Acct: [id number] Name: CAROL DAVID Rep #:[id number] : 1950 74 From: Anastasia Khan MD PCP: Dr. Harish Luis MD Status:ADM I NO Location: [place] [id number] Reason for Visit Reason for Visit: Diagnoses Other toxic encephalopathy (09/21/24) Pneumonitis due to inhalation of food and vomit (09/21/24) Dysphagia, oropharyngeal phase (09/21/24) Difficulty in walking, not elsewhere classified (09/21/24) Repeated falls (09/21/24) Disorientation, unspecified (09/21/24) Fever, unspecified (09/21/24) Weakness (09/21/24) Subjective Subjective Patient with no acute events overnight per self and per nursing report. Patientis more alert and answering questions appropriately giving correct place, person, month, year but does get the presidency wrong which from discussion withstaff has been chronic. She is very eager for discharge and adamant that she wewill not be staying further beyond today. Did discuss need for at least a speech therapy reevaluation given concerns for ongoing aspiration and also plan for repeat CT head as she is not a candidate for MRI of the brain to which she is amenable but notes after this she must be discharged. Patient denies fevers,chills, nausea, emesis, abdominal pain, chest pain or dyspnea. Objective Data Objective Data Vital Signs: Vital Signs Temp Pulse Resp BP Pulse Ox O2 Del Method 98.1 F 72 14 165/82 H 96 Room Air 09/22/24 03:35 09/22/24 03:35 09/22/24 03:35 09/22/24 03:35 09/22/24 03:35 09/22/24 03:36 Oxygen Delivery Method Room Air Weight: 105 lb 6.095 oz Body Mass Index (BMI) 18.6 Intake & Output: Intake and Output for Last 24 Hours 09/20/24 09/21/24 09/22/24 23:59 23:59 23:59 Intake Total 1108.33 / 1108.33 250 / 250 Balance 1108.33 / 1108.33 250 / 250 Lab / Micro Data 09/22/24 04:26 09/22/24 04:26 Labs: Laboratory Results - last 24 hr 09/21/24 18:15: Sodium 140, Potassium 3.8, Chloride 105, Carbon Dioxide 24.7, Anion Gap 10, BUN 8, Creatinine 0.97, Estim Creat Clear Calc 40.24 L, Est GFR (MDRD) Non-Af 61, BUN/Creatinine Ratio 8.7 L, Glucose 118 H, Hemoglobin A1c 5.5,Calcium 9.0, Magnesium 1.9, Total Bilirubin 0.47, AST 30, ALT 11, Alkaline Phosphatase 113 H, Total Protein 6.4, Albumin 3.3 L, Globulin 3.1, Albumin/Globulin Ratio 1.1, Vitamin B12 757, TSH 0.358 09/21/24 18:36: WBC 8.0, RBC 3.64 L, Hgb 11.4 L, Hct 34.9 L, MCV 95.9, MCH 31.3,MCHC 32.7, RDW Std Deviation 48.4 H, RDW Coeff of Mehnaz 13.8, Plt Count 339, MPV 10.0, Immature Gran % (Auto) 0.200, Neut% (Auto) 79.3 H, Lymph % (Auto) 11.2 L,Addison % (Auto) 8.7, Eos % (Auto) 0.2, Baso % (Auto) 0.4, Absolute Neuts (auto) 6.4, Absolute Lymphs (auto) 0.90, Nucleated RBC % 0 09/21/24 18:50: Urine Color Yellow, Urine Clarity Clear, Urine pH 6.0, Ur Specific [place] 1.015, Urine Protein 15 H, Urine Glucose (UA) Normal, Urine Ketones Negative, Urine Occult Blood Negative, Urine Nitrite Negative, Urine Bilirubin Negative, Urine Urobilinogen Normal, Ur Leukocyte Esterase 100 H, Urine RBC 0 SEEN, Urine WBC 0-5 SEEN, Ur Squamous Epith Cells 0 SEEN, Urine Bacteria 2+, Urine Mucus 0 SEEN, Urine Yeast 1+, Urine Opiates Screen NEGATIVE, U Buprenorphine Qual NEGATIVE, Ur Oxycodone Screen NEGATIVE, Urine Methadone Screen NEGATIVE, Urine Fentanyl Screen NEGATIVE, Ur Barbiturates Screen NEGATIVE, Ur Phencyclidine Scrn NEGATIVE, Ur Amphetamines Screen NEGATIVE, U Benzodiazepines Scrn PRESUMPTIVE POSITIVE, Urine Cocaine Screen NEGATIVE, U Cannabinoids Screen NEGATIVE 09/21/24 18:55: Lactic Acid 1.1 09/21/24 20:21: Ethyl Alcohol < 10.1 09/21/24 21:00: Serum Folate 6.21 09/22/24 04:26: WBC 5.5, RBC 3.45 L, Hgb 10.8 L, Hct 33.1 L, MCV 95.9, MCH 31.3,MCHC 32.6, RDW Std Deviation 48.6 H, RDW Coeff of Mehnaz 13.8, Plt Count 319, MPV 9.2, Immature Gran % (Auto) 0.400, Neut % (Auto) 61.9, Lymph % (Auto) 26.9, Addison% (Auto) 8.5, Eos % (Auto) 1.8, Baso % (Auto) 0.5, Absolute Neuts (auto) 3.4, Absolute Lymphs (auto) 1.48, Nucleated RBC % 0, D-Dimer Quant (PE/DVT) 0.32, Sodium 143, Potassium 3.7, Chloride 111 H, Carbon Dioxide 23.5, Anion Gap 8, BUN7, Creatinine 0.74, EstimCreat Clear Calc 46.56 L, Est GFR (MDRD) Non-Af 86, BUN/Creatinine Ratio 9.7 L, Glucose 76, Calcium8.5, Phosphorus 3.1, Total Bilirubin 0.46, AST 26, ALT 11, Alkaline Phosphatase 98, Total Protein 5.6 L, Albumin 2.9 L, Globulin 2.7, Albumin/Globulin Ratio 1.1, Triglycerides 81, Cholesterol 217 H, LDL Cholesterol, Calc 132, VLDL Cholesterol 16, HDL Cholesterol 69, Cholesterol/HDL Ratio 3.16 Micro: Microbiology 09/21/24 18:52 Mucosa - Nose SARS-CoV-2, Influenza & RSV (PCR) - Final ABG Data ABG results: ABG 09/22/24 04:33 Specimen Type PEYTON Sample Site VENOUS VBG pH 7.39 VBG pO2 39 VBG HCO3 29 H VBG Total CO2 30 VBG O2 Sat (Calc) 72 H VBG Base Excess 4 H POC Mix VBG pCO2 Pt Tmp 48.3 O2 Delivery Device Room Air Radiography Diagnostic Testing: Radiology Impression Brain CT 09/21/24 18:37 IMPRESSION: No acute abnormality Reading [facility] Chest X-Ray 09/21/24 19:18 IMPRESSION: Improvement in bilateral hilar and basilar infiltrates Reading [facility] Chest CT 09/21/24 20:09 IMPRESSION: Residual consolidating airspace disease in the left lower lobe right lower lobe to lesser degree consistent with history of aspiration pneumonia. Coronary artery calcification (CAC) is difficult to visualize due to presence ofmetallic streak artifact suspected metallic heart stents. Correlate with cardiac history. Small hiatal hernia Thoraco lumbar spine area anterior wedge compression fracture Reading Location[facility] Rhythm Strip Rhythm Strip: Sinus Rhythm Rate: 93 Ectopy: None Physical Exam Narrative Physical Examination: General: Awake, alert, oriented x [address], year, month, does get the presidency wrong butfrom discussion with staff this is chronically an issue, following commands, seated upright in the PCU bed, notes she is eager for discharge and is unwilling to remain beyond today. Skin: Normal color, normal turgor, no icterus, no cyanosis except for various abrasions, staged ecchymoses. HEENT: AT/NC, EOMI, PERRLA, MMM. Lungs: Mild diminished, greater bases, left greater than right, appropriate effort, no evidence of distress, no markedly appreciated rales, rhonchi or wheezing. Heart: Regular rate and rhythm; no gallop, rub audible. Abdomen: Soft, thin habitus, NTTP, ND, normal BS. Extremities: No cyanosis, no clubbing, no marked peripheral edema, see skin. Neurological: Patient awake, alert, oriented as noted, cognitive function suspect currently baseline intact; pupils equally reactive to light and accommodation, cranial nerves grossly normal, moving all 4 extremities, strengthmoderately globally decreased. Psychiatric: Affect appears fatigued, but following lengthy discussion very adamant about discharge, no acute evidence of depressive or anxiety feelings butdoes have underlying history. 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 #1. Acute Encephalopathy, suspected multifactorial, secondary to Acute Suspected Aspiration PNA (possible GN organisms) with known chronic oropharyngeal dysphagia in addition to Chronic BZD usage with persistent debility, mechanical falls: Admitted to PCU, maintain on aspiration precautions,startedon empiric therapy with IV Levaquin and Flagyl given allergy history, maintain n.p.o. status with speech therapy evaluation with clearance for regulardiet/thin liquids with direct supervision one-to-one, presentation CT imaging with no acute findings and given unable to perform MRI brain to be certain thereis no intracranial findings plan repeat CT head this afternoon, PT/OT/ST consultation however patient is very adamant for discharge to home thus we will plan outpatient therapies at dischargeas long as CT head with no acute findings. Will plan discharge to home with outpatient therapies given patient refusal of ongoing inpatient care, although has clinically improved since initial ED arri ladan. #2. Anxiety and depression: Patient on buspirone twice daily, doxepin nightly and clonazepam 3 times daily, held clonazepam and continued on buspirone and doxepin, would highly recommend outpatient follow-up with PCP and reevaluation of medications given ongoing issues with aspiration and falls. #3. Chronic back pain, debility with cervical stenosis, scoliosis of the spine:Status post surgicalintervention of the spine, encourage offloading, positionalchanges, Tylenol as needed. #4. History of VTE: Patient with history of DVT, PE previously, had been felt provoked at that timesecondary to immobility, previously had been on Eliquis, maintained on chemoprophylaxis with Lovenox. #5. Chronic normocytic anemia: Admission hemoglobin 11.4, MCV 95.9, baseline hemoglobin more recently 10-11 range, stable, 09/22/2024 hemoglobin 10.8. #6. Tobacco use: Encourage continued tobacco cessation. #7. GERD: Will continue patient on PPI. #8. DVT Prophylaxis: Lovenox. #9. CODE status: Patient SUNITA is her and living will is currently in place. Full Code status. Charges/Coding Visit Charges Inpatient E&M: 53687 Subs Hosp L2 09/22/24 1700 Cosigner Signature (if applicable): CC: ~ Signed ADDENDUM by Dr. Anastasia Khan MD on 09/22/24 at [address] brain without acute process. 09/22/24 1715 Cosigner Signature (if applicable): cc: ~* Signed [facility]07-07-2025 Radiology Diagnostic study note [facility] Imaging Services [address] [place] [address] Brain/Head without Contrast MR#: [id number] Acct: [id number] Name: CAROL DAVID Rep #: [id number] : 1950 F 74 From: Kayla Ham MD PCP: Dr. Harish Luis MD Status: ADM I NO Study:Brain/Head without Contrast Date of Exa m: 09/22/24 Exam# [id number] Ordering Dr: Kita Khan MD PROCEDURE: BRAIN/HEAD WITHOUT CONTRAST 09/22/2024 REASON FOR EXAM: REPEAT CT HEAD, ASSURE NO CVA TECHNIQUE: BRAIN/HEAD WITHOUT CONTRAST Coronal and Sagittal reconstruction series were provided. One or more dose reduction techniques were used (e.g., Automated exposure control, adjustment of the mA and/or kV according to patient size, use of iterative reconstruction technique. RADIATION DOSE SUMMARY: DLP: 779 mGycm COMPARISON: 09/21/2024 FINDINGS: There is no acute infarct, intracranial hemorrhage, or mass effect. There is no hydrocephalus or significant midline shift. There is mild chronic microvascular ischemic changes and mild parenchymal volumeloss. No acute, depressed calvarial fractures. No large scalp hematomas. CT/Brain/Head without Contrast IMPRESSION: No acute intracranial process. Consider MR if symptoms persist. Reading Location: [facility] CC: Dr. Anastasia Khan MD; Dr. Harish Luis MD ~ Machine Stamper: Signed [facility]07-07-2025 Progress note Author Anastasia Khan [facility] Note Date/Time September 22, 2024 5:15p [facility] Medical Records Department [address] [place] [id number] Progress Note - Hospitalist 09/22/24726 MR#: [id number] Acct: [id number] Name: CAROL DAVID Rep #:[id number] : 1950 74 From: Anastasia Khan MD PCP: Dr. Harish Luis MD Status:ADM I NO Location: [place] [address] Reason for Visit Reason for Visit: Diagnoses Other toxic encephalopathy (09/21/24) Pneumonitis due to inhalation of food and vomit (09/21/24) Dysphagia, oropharyngeal phase (09/21/24) Difficulty in walking, not elsewhere classified (09/21/24) Repeated falls (09/21/24) Disorientation, unspecified (09/21/24) Fever, unspecified (09/21/24) Weakness (09/21/24) Subjective Subjective Patient with no acute events overnight per self and per nursing report. Patientis more alert and answering questions appropriately giving correct place, person, month, year but does get the presidency wrong which from discussion withstaff has been chronic. She is very eager for discharge and adamant that she wewill not be staying further beyond today. Did discuss need for at least a speech therapy reevaluation given concerns for ongoing aspiration and also plan for repeat CT head as she is not a candidate for MRI of the brain to which she is amenable but notes after this she must be discharged. Patient denies fevers,chills, nausea, emesis, abdominal pain, chest pain or dyspnea. Objective Data Objective Data Vital Signs: Vital Signs Temp Pulse Resp BP Pulse Ox O2 Del Method 98.1 F 72 14 165/82 H 96 Room Air 09/22/24 03:35 09/22/24 03:35 09/22/24 03:35 09/22/24 03:35 09/22/24 03:35 09/22/24 03:36 Oxygen Delivery Method Room Air Weight: 105 lb 6.095 oz Body Mass Index (BMI) 18.6 Intake & Output: Intake and Output for Last 24 Hours 09/20/24 09/21/24 09/22/24 23:59 23:59 23:59 Intake Total 1108.33 / 1108.33 250 / 250 Balance 1108.33 / 1108.33 250 / 250 Lab / Micro Data 09/22/24 04:26 09/22/24 04:26 Labs: Laboratory Results - last 24 hr 09/21/24 18:15: Sodium 140, Potassium 3.8, Chloride 105, Carbon Dioxide 24.7, Anion Gap 10, BUN 8, Creatinine 0.97, Estim Creat Clear Calc 40.24 L, Est GFR (MDRD) Non-Af 61, BUN/Creatinine Ratio 8.7 L, Glucose 118 H, Hemoglobin A1c 5.5,Calcium 9.0, Magnesium 1.9, Total Bilirubin 0.47, AST 30, ALT 11, Alkaline Phosphatase 113 H, Total Protein 6.4, Albumin 3.3 L, Globulin 3.1, Albumin/Globulin Ratio 1.1, Vitamin B12 757, TSH 0.358 09/21/24 18:36: WBC 8.0, RBC 3.64 L, Hgb 11.4 L, Hct 34.9 L, MCV 95.9, MCH 31.3,MCHC 32.7, RDW Std Deviation 48.4 H, RDW Coeff of Mehnaz 13.8, Plt Count 339, MPV 10.0, Immature Gran % (Auto) 0.200, Neut % (Auto) 79.3 H, Lymph % (Auto) 11.2 L,Addison % (Auto) 8.7, Eos % (Auto) 0.2, Baso % (Auto) 0.4, Absolute Neuts (auto) 6.4, Absolute Lymphs (auto) 0.90, Nucleated RBC % 0 09/21/24 18:50: Urine Color Yellow, Urine Clarity Clear, Urine pH 6.0, Ur Specific [place] 1.015, Urine Protein 15 H, Urine Glucose (UA) Normal, Urine Ketones Negative, Urine Occult Blood Negative, Urine Nitrite Negative, Urine Bilirubin Negative, Urine Urobilinogen Normal, Ur Leukocyte Esterase 100 H, Urine RBC 0 SEEN, Urine WBC 0- 5 SEEN, Ur Squamous Epith Cells 0 SEEN, Urine Bacteria 2+, Urine Mucus 0 SEEN, Urine Yeast 1+, Urine Opiates Screen NEGATIVE, U Buprenorphine Qual NEGATIVE, Ur Oxycodone Screen NEGATIVE, Urine Methadone Screen NEGATIVE, Urine Fentanyl Screen NEGATIVE, Ur Barbiturates Screen NEGATIVE, Ur Phencyclidine Scrn NEGATIVE, Ur Amphetamines Screen NEGATIVE, U Benzodiazepines Scrn PRESUMPTIVE POSITIVE, Urine Cocaine Screen NEGATIVE, U Cannabinoids Screen NEGATIVE 09/21/24 18:55: Lactic Acid 1.1 09/21/24 20:21: Ethyl Alcohol < 10.1 09/21/24 21:00: Serum Folate 6.21 09/22/24 04:26: WBC 5.5, RBC 3.45 L, Hgb 10.8 L, Hct 33.1 L, MCV 95.9, MCH 31.3,MCHC 32.6, RDW Std Deviation 48.6 H, RDW Coeff of Mehnaz 13.8, Plt Count 319, MPV 9.2, Immature Gran % (Auto) 0.400, Neut % (Auto) 61.9, Lymph % (Auto) 26.9, Addison% (Auto) 8.5, Eos % (Auto) 1.8, Baso % (Auto) 0.5, Absolute Neuts (auto) 3.4, Absolute Lymphs (auto) 1.48, Nucleated RBC % 0, D-Dimer Quant (PE/DVT) 0.32, Sodium 143, Potassium 3.7, Chloride 111 H, Carbon Dioxide 23.5, Anion Gap 8, BUN7, Creatinine 0.74, Estim Creat Clear Calc 46.56 L, Est GFR (MDRD) Non-Af 86, BUN/Creatinine Ratio 9.7 L, Glucose 76, Calcium 8.5, Phosphorus 3.1, Total Bilirubin 0.46, AST 26, ALT 11, Alkaline Phosphatase 98, Total Protein 5.6 L, Albumin 2.9 L, Globulin 2.7, Albumin/Globulin Ratio 1.1, Triglycerides 81, Cholesterol 217 H, LDL Cholesterol, Calc 132, VLDL Cholesterol 16, HDL Cholesterol 69, Cholesterol/HDL Ratio 3.16 Micro: Microbiology 09/21/24 18:52 Mucosa - Nose SARS-CoV-2, Influenza & RSV (PCR) - Final ABG Data ABG results: ABG 09/22/24 04:33 Specimen Type PEYTON Sample Site VENOUS VBG pH 7.39 VBG pO2 39 VBG HCO3 29 H VBG Total CO2 30 VBG O2 Sat (Calc) 72 H VBG Base Excess 4 H POC Mix VBG pCO2 Pt Tmp 48.3 O2 Delivery Device Room Air Radiography Diagnostic Testing: Radiology Impression Brain CT 09/21/24 18:37 IMPRESSION: No acute abnormality Reading Location: [facility] Chest X-Ray 09/21/24 19:18 IMPRESSION: Improvement in bilateral hilar and basilar infiltrates Reading [facility] Chest CT 09/21/24 20:09 IMPRESSION: Residual consolidating airspace disease in the left lower lobe right lower lobe to lesser degree consistent with history of aspiration pneumonia. Coronary artery calcification (CAC) is difficult to visualize due to presence ofmetallic streak artifact suspected metallic heart stents. Correlate with cardiac history. Small hiatal hernia Thoraco lumbar spine area anterior wedge compression fracture Reading Location[facility] Rhythm Strip Rhythm Strip: Sinus Rhythm Rate: 93 Ectopy: None Physical Exam Narrative Physical Examination: General: Awake, alert, oriented x [address], year, month, does get the presidency wrong but from discussion with staff this is chronically an issue, following commands, seated upright in the PCU bed, notes she is eager for discharge and is unwilling to remain beyond today. Skin: Normal color, normal turgor, no icterus, no cyanosis except for various abrasions, staged ecchymoses. HEENT: AT/NC, EOMI, PERRLA, MMM. Lungs: Mild diminished, greater bases, left greater than right, appropriate effort, no evidence of distress, no markedly appreciated rales, rhonchi or wheezing. Heart: Regular rate and rhythm; no gallop, rub audible. Abdomen: Soft, thin habitus, NTTP, ND, normal BS. Extremities: No cyanosis, no clubbing, no marked peripheral edema, see skin. Neurological: Patient awake, alert, oriented as noted, cognitive function suspect currently baseline intact; pupils equally reactive to light and accommodation, cranial nerves grossly normal, moving all 4 extremities, strengthmoderately globally decreased. Psychiatric: Affect appears fatigued, but following lengthy discussion very adamant about discharge, no acute evidence of depressive or anxiety feelings butdoes have underlying history. 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 #1. Acute Encephalopathy, suspected multifactorial, secondary to Acute Suspected Aspiration PNA (possible GN organisms) with known chronic oropharyngeal dysphagia in addition to Chronic BZD usage with persistent debility, mechanical falls: Admitted to PCU, maintain on aspiration precautions,started on empiric therapy with IV Levaquin and Flagyl given allergy history, maintain n.p.o. status with speech therapy evaluation with clearance for regulardiet/thin liquids with direct supervision one-to-one, presentation CT imaging with no acute findings and given unable to perform MRI brain to be certain thereis no intracranial findings plan repeat CT head this afternoon, PT/OT/ST consultation however patient is very adamant for discharge to home thus we will plan outpatient therapies at discharge as long as CT head with no acute findings. Will plan discharge to home with outpatient therapies given patient refusal of ongoing inpatient care, although has clinically improved since initial ED arrival. #2. Anxiety and depression: Patient on buspirone twice daily, doxepin nightly and clonazepam 3 times daily, held clonazepam and continued on buspirone and doxepin, would highly recommend outpatient follow-up with PCP and reevaluation of medications given ongoing issues with aspiration and falls. #3. Chronic back pain, debility with cervical stenosis, scoliosis of the spine:Status post surgical intervention of the spine, encourage offloading, positionalchanges, Tylenol as needed. #4. History of VTE: Patient with history of DVT, PE previously, had been felt provoked at that time secondary to immobility, previously had been on Eliquis, maintained on chemoprophylaxis with Lovenox. #5. Chronic normocytic anemia: Admission hemoglobin 11.4, MCV 95.9, baseline hemoglobin more recently 10-11 range, stable, 09/22/2024 hemoglobin 10.8. #6. Tobacco use: Encourage continued tobacco cessation. #7. GERD: Will continue patient on PPI. #8. DVT Prophylaxis: Lovenox. #9. CODE status: Patient SUNITA is her and living will is currently in place. Full Code status. Charges/Coding Visit Charges Inpatient E&M: 64237 Subs Hosp L2 09/22/24 1700 <Electronically signed by Anastasia Khan MD> Cosigner Signature (if applicable): CC: ~ Signed ADDENDUM by Dr. Anastasia Khan MD on 09/22/24 at [address] brain without acute process. 09/22/241714<Electronically signed by Anastasia Khan MD> Cosigner Signature (if applicable): cc: ~* Signed [facility] Work Phone: [phone] 955-580307-07-2025 History and physical note Author Ricardo Fontana [facility] Note Date/Time September 22, 2024 6:42a m [facility] Medical Records Department [address] [facility] [place] [address] H&P Exam - Hospitalist 09/21/242007 MR#: [id number] Acct: [id number] Name: CAROL DAVID Rep #:[id number] : 1950 74 From: Ricardo Guy DO PCP: Dr. Harish Luis MD Status:ADM I NO Location: [place] [address] HPI - General General Date of Admission: 09/21/24 Date of Service: 09/21/24 Chief Complaint: Frequent Falls and Confusion. HPI Narrative CAROL DAVID, is a 74 F with a past medical history of depression with anxiety;on buspirone twice daily, doxepin nightly and clonazepam 3 times daily, IBS, GERD; on omeprazole, chronic oropharyngeal dysphagia (12/2023), former tobacco abuse (quit ~2015), history of Right rotator cuff tear, history of Right shoulder fracture; with subsequent limited range of motion, OA; with history of cervical stenosis lung with scoliosis of the lumbar spine s/p lumbar laminectomycausing chronic low back pain with patient ambulating with cane at baseline and recent admission here from August 27, 2024 to August 29, 2024 for treatment of aspiration pneumonia complicated by acute metabolic encephalopathy and suspectedmalnutrition in the setting of chronic oropharyngeal dysphagia who re-presents to [facility] ER with patient's noting increasingly frequent falls and confusion. The patient's informed the ER physician that she has been progressively more weak and confused over the last several days culminating in her falling 5 times yesterday and 3 times today so he finally decided to bring her back in forfurther evaluation and treatment. He denied obvious head trauma or LOC with herfall. He also noted decreased oral intake and he is very concerned she is developing a rapidly progressing dementia. He states she cannot use the microwave in addition to having difficulty using her computer and he does not allow her to drive anymore due to her declining cognitive abilities but unfortunately patient is still managing her own medications. In the ER she was noted to have a low-grade fever of 100 ?F with CT scan of the chest without contrast revealing residual consolidation airspace disease in the Left lower lobe and Right lower lobe and to a lesser degree consistent with history of Aspiration Pneumonia in addition to coronary artery calcification, small hiatal hernia and thoracolumbar spine area anterior wedge compression fracture complicated by clinical evidence of Toxic Metabolic Encephalopathy with UDS positive for benzodiazepines with a head CT without contrast that revealed no acute abnormality. She was admitted to the PCU for ongoing care for status expected to extend beyond 2 midnights. [facility] Medical History Aspiration pneumonia Hypoxia Fracture of humeral head [...] mg tablet 7.5 mg PO BID ANXIETY 09/20/24 22:00 History 7.5 mg clonazepam 1 mg tablet 1 mg PO TID ANXIETY 02/17/20 09/20/24 History doxepin 150 mg capsule 300 mg PO QHS ANXIETY 09/20/24 22:00 History 300 mg omeprazole 40 mg capsule,delayed 40 mg PO DAILY PRN 09/20/24 08:00 History release 40 mg Allergy/AdvReac Type Severity Reaction Status Date / Time Penicillins Allergy Rash Verified 09/21/24 18:05 Family History Mother Hypertension CVA (cerebral vascular [...] ambulating with a cane ROS ROS Narrative Full review of systems was limited due to patient's confusion: Constitutional: Patient admits to generalized weakness and frequent falls with intermittent confusion but she denies fever or chills as per HPI. Eyes: Patient denies changes in vision or discharge from eyes. ENT: Patient denies runny nose, sore throat or ear pain. Resp: Patient denies shortness of breath or cough. CV: Patient denies chest pain, palpitations, heart racing or lower extremity edema. GI: Patient denies abdominal pain, nausea, vomiting, diarrhea or constipation. : Patient denies dysuria or hematuria. MSK: Patient admits to chronic back pain made worse after recent falls with worsening generalized weakness and ambulatory dysfunction as per HPI. Skin: Patient denies rash, abscess, wounds or jaundice. Psych: Patient admits to depression and anxiety but she denies SI or HI. Neuro: Patient admits to unsteady gait with frequent falls as per HPI but she denies paresthesias or focal neurologic deficits. Allergy: Patient denies lip swelling, tongue swelling or urticaria. Hematology: Patient denies easy bleeding or easy bruisability. Endocrinology: Patient denies polyuria, polydipsia, polyphagia or heat/cold intolerance. 14 point ROS otherwise negative except for positives noted above in HPI. Vital Signs Vital Signs Vital Signs: 09/21/24 18:01 09/21/24 18:05 09/21/24 19:34 Temperature 100.0 F H Temperature Source Oral Pulse Rate 94 89 Respiratory Rate 18 18 Respiratory Effort Normal Respiratory Pattern Normal Blood Pressure 153/85 H 151/91 H Blood Pressure Mean 107 111 Pulse Ox 96 97 Oxygen Delivery Method Room Air 09/21/24 19:38 09/21/24 19:39 Temperature 99.3 F H 99.3 F H Temperature Source Oral Pulse Rate 86 86 Respiratory Rate 22 H 24 H Respiratory Effort Respiratory Pattern Blood Pressure 140/74 H 140/74 H Blood Pressure Mean 96 96 Pulse Ox 97 97 Oxygen Delivery Method Room Air Weight Weight: 111 lb 8 oz Body Mass Index (BMI) 20.4 Physical Exam Const alert, no apparent distress and average body habitus Constitutional Narrative: Confused but nontoxic in appearance. General Appearance: cooperative Orientation / Consciousness: confused HEENT normocephalic, head/scalp atraumatic and hearing grossly normal bilaterally HEENT Narrative: Mucous membranes dry. Eyes PERRL, EOMs intact bilaterally and conjunctivae normal Neck no lymphadenopathy, supple and no JVD Resp Resp Narrative: Diminished breath sounds over Left lung base greater than Right. Cardio regular rate and regular rhythm GI normal to inspection, nondistended, normoactive bowel sounds, soft to palpation,non-tender and non-distended Extremity normal to inspection, full ROM and no clubbing, cyanosis or edema Neuro CN's II-XII intact bilaterally, moves all extremities and no focal motor deficits Sensorium / Orientation: awake, alert, oriented to person and oriented to time Speech: speech normal Psych affect normal Results Medical Records Data Attestation: I reviewed the patient's medical records Lab / Micro Data Attestation: I reviewed the patient's lab results. 09/21/24 18:36 09/21/24 18:15 Labs: Laboratory Results - last 24 hr 09/21/24 18:15: Sodium 140, Potassium 3.8, Chloride 105, Carbon Dioxide 24.7, Anion Gap 10, BUN 8, Creatinine 0.97, Estim Creat Clear Calc 40.24 L, Est GFR (MDRD) Non-Af 61, BUN/Creatinine Ratio 8.7 L, Glucose 118 H, Calcium 9.0, Total Bilirubin 0.47, AST 30, ALT 11, Alkaline Phosphatase 113 H, Total Protein 6.4, Albumin 3.3 L, Globulin 3.1, Albumin/Globulin Ratio 1.1 09/21/24 18:36: WBC 8.0, RBC 3.64 L, Hgb 11.4 L, Hct 34.9 L, MCV 95.9, MCH 31.3,MCHC 32.7, RDW Std Deviation 48.4 H, RDW Coeff of Mehnaz 13.8, Plt Count 339, MPV 10.0, Immature Gran % (Auto) 0.200, Neut % (Auto) 79.3 H, Lymph % (Auto) 11.2 L,Addison % (Auto) 8.7, Eos % (Auto) 0.2, Baso % (Auto) 0.4, Absolute Neuts (auto) 6.4, Absolute Lymphs (auto) 0.90, Nucleated RBC % 0 09/21/24 18:50: Urine Color Yellow, Urine Clarity Clear, Urine pH 6.0, Ur Specific [place] 1.015, Urine Protein 15 H, Urine Glucose (UA) Normal, Urine Ketones Negative, Urine Occult Blood Negative, Urine Nitrite Negative, Urine Bilirubin Negative, Urine Urobilinogen Normal, Ur Leukocyte Esterase 100 H, Urine RBC 0 SEEN, Urine WBC 0- 5 SEEN, Ur Squamous Epith Cells 0 SEEN, Urine Bacteria 2+, Urine Mucus 0 SEEN, Urine Yeast 1+ 09/21/24 18:55: Lactic Acid 1.1 Micro: Microbiology 09/21/24 18:52 Mucosa - Nose SARS-CoV-2, Influenza & RSV (PCR) - Final Rhythm Strip Rhythm Strip: Sinus Rhythm Rate: 93 Ectopy: None Imaging Radiology Impression Brain CT 09/21/24 18:37 IMPRESSION: No acute abnormality Reading Location: [facility] Chest X-Ray 09/21/24 19:18 IMPRESSION: Improvement in bilateral hilar and basilar infiltrates Reading Location: [facility] Imaging Services [address] [place] [id number] Chest without Contrast MR#: [id number] Acct: [id number] Name: CAROL DAVID Rep #: [id number] : 1950 F 74 From: Claude Moralez DO PCP: Dr. Harish Luis MD Status: ADM BRITTNEE Study: Chest without Contrast Date of Exam: 09/21/24 Exam# [id number] Ordering Dr: Ricardo Justice DO PROCEDURE: CHEST WITHOUT CONTRAST 09/21/2024 REASON FOR EXAM: RECENT ASPIRATION PNEUMONIA. TECHNIQUE: Chest CT without contrast. Coronal and Sagittal reconstruction series were provided. One or more dose reduction techniques were used (e.g., Automated exposure control, adjustment of the mA and/or kV according to patient size, use of iterative reconstruction technique RADIATION DOSE SUMMARY: CTDlvol: 6.08 mGy DLP: 217.14 mGycm COMPARISON: No prior chest CTs FINDINGS: Hardware: Lower thoracic spine pain stimulating electrodes. Lymph nodes: Negative Heart and Vasculature: Heart size is normal. No aortic aneurysm Coronary Artery Calcifications: Metallic stents Lungs and Airways: Patchy consolidating airspace disease independent lung, especially left lower lobe Pleura: No effusions. Upper Abdomen: Small hiatal hernia. Bones: Osteoporotic anterior wedge compression deformity in the lower thoracolumbar spine CT/Chest without Contrast IMPRESSION: Residual consolidating airspace disease in the left lower lobe right lower lobe to lesser degree consistent with history of aspiration pneumonia. Coronary artery calcification (CAC) is difficult to visualize due to presence ofmetallic streak artifact suspected metallic heart stents. Correlate with cardiac history. Small hiatal hernia Thoraco lumbar spine area anterior wedge compression fracture Reading Location[facility] CC: Dr. Ricardo Justice DO; Dr. Harish Luis MD ~ Machine Stamper: Signed Assessment & Plan Assessment/Plan (1) Aspiration pneumonia: QUALIFIERS: Aspiration pneumonia type: unspecified Laterality: left Lung location: lower lobe of lung Qualified Code(s): J69.0 - Pneumonitis due to inhalation of food and vomit (2) Fever: QUALIFIERS: Fever type: unspecified Qualified Code(s): R50.9 - Fever, unspecified (3) Toxic metabolic encephalopathy: (4) Generalized weakness: (5) Ambulatory dysfunction: (6) Frequent falls: (7) Oropharyngeal dysphagia: PLAN: Plan 1. CT scan of the chest without contrast revealing residual consolidation airspace disease in the Left lower lobe and Right lower lobe and to a lesser degree consistent with history of Aspiration Pneumonia - Admit to PCU. Start empiric antibiotic treatment with IV levofloxacin and IV metronidazole in light of listed allergy to PCN. Give acetaminophen as needed for pain or fever. 2. Fever of 100 ?F present on admission suspected to be due to #1 - We will give acetaminophen prn as outlined in #1. 3. Toxic Metabolic Encephalopathy suspected to be due to a combination of chronic benzodiazepine use in addition to #1 & #2 - Hold benzodiazepines in an effort to allow sensorium to clear. Check TSH, B12, Folate, UDS and MAY to evaluate for other potentially reversible causes of confusion. Check MRI of brain without contrast with rapid cognitive decline and 's concern for possible rapid-onset dementia. Otherwise, we will minimize CLEANER-active medications, continue care plan and monitor for improvement. 4. Generalized Weakness with Frequent Falls attributable to #1 - #3 - PT/OT andCase Management to consult and treat on rounds in the AM for further recommendations with help appreciated in advance. 5. Chronic oropharyngeal dysphagia (12/2023) adding to the medical complexity of #1 - #4 - Patient is suspected to be having recurrent aspiration events due to this issue that has likely progressed since her last study. We will consult speech therapy to perform new swallow evaluation to confirm suspicion with help appreciated in advance. 6. Recent admission here from August 27, 2024 to August 29, 2024 for treatment of aspiration pneumonia complicated by acute metabolic encephalopathy and suspectedmalnutrition in the setting of chronic oropharyngeal dysphagia - Noted with similar pattern of admission as on this occasion. 7. Depression with anxiety; on buspirone twice daily, doxepin nightly and clonazepam 3 times daily - Maintain buspirone and doxepin as previous but hold clonazepam as outlined in #3. 8. IBS - Stable. 9. GERD; on omeprazole - Continue PPI. 10. Former tobacco abuse (quit ~2015) - Noted. 11. History of Right rotator cuff tear - Noted. 12. History of Right shoulder fracture; with subsequent limited range of motion- Stable. 13. OA; with history of cervical stenosis lung with scoliosis of the lumbar spine s/p lumbar laminectomy causing chronic low back pain - Noted. We will give acetaminophen prn as outlined in #1. 14. DVT prophylaxis - Enoxaparin 40 mg sq daily plus SCD's. Total time: Approximately (but not less than) 75 minutes. 09/22/24 0642 <Electronically signed by Ricardo Justice DO> Cosigner Signature (if applicable): CC: Dr. Ricardo Justice DO; Dr. Harish Luis MD~ Signed [facility] Work Phone: [phone]) 884-786407-07-2025 History and physical note [facility] Medical Records Department [address] [place] [address] H&P Exam - Hospitalist 09/21/242007 MR#: [id number] Acct: [id number] Name: CAROL DAVID Rep #:[id number] : 1950 74 From: Ricardo Guy DO PCP: Dr. Harish Luis MD Status:ADM I NO Location: [place] [address] HPI - General General Date of Admission: 09/21/24 Date of Service: 09/21/24 Chief Complaint: Frequent Falls and Confusion. HPI Narrative CAROL DAVID, is a 74 F with a past medical history of depression with anxiety;on buspirone twice daily, doxepin nightly and clonazepam 3 times daily, IBS, GERD; on omeprazole, chronic oropharyngealdysphagia (12/2023), former tobacco abuse (quit ~2015), history of Right rotator cuff tear, historyof Right shoulder fracture; with subsequent limited range of motion, OA; with history of cervical stenosis lung with scoliosis of the lumbar spine s/p lumbar laminectomycausing chronic low back pain with patient ambulating with cane at baseline and recent admission here from August 27, 2024 to August 29, 2024 for treatment of aspiration pneumonia complicated by acute metabolic encephalopathy and suspectedmalnutrition in the setting of chronic oropharyngeal dysphagia who re-presents to [facility] ER with patient's noting increasingly frequent falls and confusion. The patient's informed the ER physician that she has been progressively more weak and confused over the last several days culminating in her falling 5 times yesterday and 3 times today so he finally decided to bring her back in forfurther evaluation and treatment. He denied obvious head trauma or LOC with herfall. He also noted decreased oral intake and he is very concerned she is developing a rapidly progressing dementia. He states she cannot use the microwave in addition to having difficulty using her computer and he does not allow her to drive anymore due to her declining cognitiveabilities but unfortunately patient is still managing her own medications. In the ER she was noted to have a low-grade fever of 100 ?F with CT scan of the chest without contrast revealing residual consolidation airspace disease in the Left lower lobe and Right lower lobe and to a lesser degree consistent with history of Aspiration Pneumonia in addition to coronary artery calcification, small hiatal hernia and thoracolumbar spine area anterior wedge compression fracture complicated by clinical evidence of Toxic Metabolic Encephalopathy with UDS positive for benzodiazepines with a head CT without contrast that revealed no acute abnormality. She was admitted to the PCU for ongoing care for status expected to extend beyond 2 midnights. [facility] Medical History Aspiration pneumonia Hypoxia Fracture of humeral head [...] mg tablet 7.5 mg PO BID ANXIETY 09/20/24 22:00 History 7.5 mg clonazepam 1 mg tablet 1 mg PO TID ANXIETY 02/17/20 09/20/24 History doxepin 150 mg capsule 300 mg PO QHS ANXIETY 09/20/24 22:00 History 300 mg omeprazole 40 mg capsule,delayed 40 mg PO DAILY PRN 09/20/24 08:00 History release 40 mg Allergy/AdvReac Type Severity Reaction Status Date / Time Penicillins Allergy Rash Verified 09/21/24 18:05 Family History Mother Hypertension CVA (cerebral vascular [...] ambulating with a cane ROS ROS Narrative Full review of systems was limited due to patient's confusion: Constitutional: Patient admits to generalized weakness and frequent falls with intermittent confusion but she denies fever or chills as per HPI. Eyes: Patient denies changes in vision or discharge from eyes. ENT: Patient denies runny nose, sore throat or ear pain. Resp: Patient denies shortness of breath or cough. CV: Patient denies chest pain, palpitations, heart racing or lower extremity edema. GI: Patient denies abdominal pain, nausea, vomiting, diarrhea or constipation. : Patient denies dysuria or hematuria. MSK: Patient admits to chronic back pain made worse after recent falls with worsening generalized weakness and ambulatory dysfunction as per HPI. Skin: Patient denies rash, abscess, wounds or jaundice. Psych: Patient admits to depression and anxiety but she denies SI or HI. Neuro: Patient admits to unsteady gait with frequent falls as per HPI but she denies paresthesias or focal neurologic deficits. Allergy: Patient denies lip swelling, tongue swelling or urticaria. Hematology: Patient denies easy bleeding or easy bruisability. Endocrinology: Patient denies polyuria, polydipsia, polyphagia or heat/cold intolerance. 14 point ROS otherwise negative except for positives noted above in HPI. Vital Signs Vital Signs Vital Signs: 09/21/24 18:01 09/21/24 18:05 09/21/24 19:34 Temperature 100.0 F H Temperature Source Oral Pulse Rate 94 89 Respiratory Rate 18 18 Respiratory Effort Normal Respiratory Pattern Normal Blood Pressure 153/85 H 151/91 H Blood Pressure Mean 107 111 Pulse Ox 96 97 Oxygen Delivery Method Room Air 09/21/24 19:38 09/21/24 19:39 Temperature 99.3 F H 99.3 F H Temperature Source Oral Pulse Rate 86 86 Respiratory Rate 22 H 24 H Respiratory Effort Respiratory Pattern Blood Pressure 140/74 H 140/74 H Blood Pressure Mean 96 96 Pulse Ox 97 97 Oxygen Delivery Method Room Air Weight Weight: 111 lb 8 oz Body Mass Index (BMI) 20.4 Physical Exam Const alert, no apparent distress and average body habitus Constitutional Narrative: Confused but nontoxic in appearance. General Appearance: cooperative Orientation / Consciousness: confused HEENT normocephalic, head/scalp atraumatic and hearing grossly normal bilaterally HEENT Narrative: Mucous membranes dry. Eyes PERRL, EOMs intact bilaterally and conjunctivae normal Neck no lymphadenopathy, supple and no JVD Resp Resp Narrative: Diminished breath sounds over Left lung base greater than Right. Cardio regular rate and regular rhythm GI normal to inspection, nondistended, normoactive bowel sounds, soft to palpation,non-tender and non-distended Extremity normal to inspection, full ROM and no clubbing, cyanosis or edema Neuro CN's II-XII intact bilaterally, moves all extremities and no focal motor deficits Sensorium / Orientation: awake, alert, oriented to person and oriented to time Speech: speech normal Psych affect normal Results Medical Records Data Attestation: I reviewed the patient's medical records Lab / Micro Data Attestation: I reviewed the patient's lab results. 09/21/24 18:36 09/21/24 18:15 Labs: Laboratory Results - last 24 hr 09/21/24 18:15: Sodium 140, Potassium 3.8, Chloride 105, Carbon Dioxide 24.7, Anion Gap 10, BUN 8, Creatinine 0.97, Estim Creat Clear Calc 40.24 L, Est GFR (MDRD) Non-Af 61, BUN/Creatinine Ratio 8.7 L, Glucose 118 H, Calcium 9.0, Total Bilirubin 0.47, AST 30, ALT 11, Alkaline Phosphatase 113 H, Total Protein 6.4, Albumin 3.3 L, Globulin 3.1, Albumin/Globulin Ratio 1.1 09/21/24 18:36: WBC 8.0, RBC 3.64 L, Hgb 11.4 L, Hct 34.9 L, MCV 95.9, MCH 31.3,MCHC 32.7, RDW Std Deviation 48.4 H, RDW Coeff of Mehnaz 13.8, Plt Count 339, MPV 10.0, Immature Gran % (Auto) 0.200, Neut% (Auto) 79.3 H, Lymph % (Auto) 11.2 L,Addison % (Auto) 8.7, Eos % (Auto) 0.2, Baso % (Auto) 0.4, Absolute Neuts (auto) 6.4, Absolute Lymphs (auto) 0.90, Nucleated RBC % 0 09/21/24 18:50: Urine Color Yellow, Urine Clarity Clear, Urine pH 6.0, Ur Specific [place] 1.015, Urine Protein 15 H, Urine Glucose (UA) Normal, Urine Ketones Negative, Urine Occult Blood Negative, Urine Nitrite Negative, Urine Bilirubin Negative, Urine Urobilinogen Normal, Ur Leukocyte Esterase 100 H, Urine RBC 0 SEEN, Urine WBC 0-5 SEEN, Ur Squamous Epith Cells 0 SEEN, Urine Bacteria 2+, Urine Mucus 0 SEEN, Urine Yeast 1+ 09/21/24 18:55: Lactic Acid 1.1 Micro: Microbiology 09/21/24 18:52 Mucosa - Nose SARS-CoV-2, Influenza & RSV (PCR) - Final Rhythm Strip Rhythm Strip: Sinus Rhythm Rate: 93 Ectopy: None Imaging Radiology Impression Brain CT 09/21/24 18:37 IMPRESSION: No acute abnormality Reading Location: [facility] Chest X-Ray 09/21/24 19:18 IMPRESSION: Improvement in bilateral hilar and basilar infiltrates Reading Location: [facility] Imaging Services [address] [place] [id number] Chest without Contrast MR#: [id number] Acct: [id number] Name: CAROL DAVID Rep #: [id number] : 1950 F 74 From: Claude Moralez DO PCP: Dr. Harish Luis MD Status: ADM BRITTNEE Study: Chest without Contrast Date of Exam: 09/21/24 Exam# [id number] Ordering Dr: Ricardo Justice DO PROCEDURE: CHEST WITHOUT CONTRAST 09/21/2024 REASON FOR EXAM: RECENT ASPIRATION PNEUMONIA. TECHNIQUE: Chest CT without contrast. Coronal and Sagittal reconstruction series were provided. One or more dose reduction techniques were used (e.g., Automated exposure control, adjustment of the mA and/or kV according to patient size, use of iterative reconstruction technique RADIATION DOSE SUMMARY: CTDlvol: 6.08 mGy DLP: 217.14 mGycm COMPARISON: No prior chest CTs FINDINGS: Hardware: Lower thoracic spine pain stimulating electrodes. Lymph nodes: Negative Heart and Vasculature: Heart size is normal. No aortic aneurysm Coronary Artery Calcifications: Metallic stents Lungs and Airways: Patchy consolidating airspace disease independent lung, especially left lower lobe Pleura: No effusions. Upper Abdomen: Small hiatal hernia. Bones: Osteoporotic anterior wedge compression deformity in the lower thoracolumbar spine CT/Chest without Contrast IMPRESSION: Residual consolidating airspace disease in the left lower lobe right lower lobe to lesser degree consistent with history of aspiration pneumonia. Coronary artery calcification (CAC) is difficult to visualize due to presence ofmetallic streak artifact suspected metallic heart stents. Correlate with cardiac history. Small hiatal hernia Thoraco lumbar spine area anterior wedge compression fracture Reading Location: [facility] CC: Dr. Ricardo Justice DO; Dr. Harish Luis MD ~ Machine Stamper: Signed Assessment & Plan Assessment/Plan (1) Aspiration pneumonia: QUALIFIERS: Aspiration pneumonia type: unspecified Laterality: left Lung location: lower lobe of lung Qualified Code(s): J69.0 - Pneumonitis due to inhalation of food and vomit (2) Fever: QUALIFIERS: Fever type: unspecified Qualified Code(s): R50.9 - Fever, unspecified (3) Toxic metabolic encephalopathy: (4) Generalized weakness: (5) Ambulatory dysfunction: (6) Frequent falls: (7) Oropharyngeal dysphagia: PLAN: Plan 1. CT scan of the chest without contrast revealing residual consolidation airspace disease in the Left lower lobe and Right lower lobe and to a lesser degree consistent with history of Aspiration Pneumonia - Admit to PCU. Start empiric antibiotic treatment with IV levofloxacin and IV metronidazole in light of listed allergy to PCN. Give acetaminophen as needed for pain or fever. 2. Fever of 100 ?F present on admission suspected to be due to #1 - We will give acetaminophen prn as outlined in #1. 3. Toxic Metabolic Encephalopathy suspected to be due to a combination of chronic benzodiazepine use in addition to #1 & #2 - Hold benzodiazepines in an effort to allow sensorium to clear. Check TSH, B12, Folate, UDS and MAY to evaluate for other potentially reversible causes of confusion. Check MRI of brain without contrast with rapid cognitive decline and 's concern for possible rapid-onset dementia. Otherwise, we will minimize CLEANER-active medications, continue care plan and monitorfor improvement. 4. Generalized Weakness with Frequent Falls attributable to #1 - #3 - PT/OT andCase Management to consult and treat on rounds in the AM for further recommendations with help appreciated in advance. 5. Chronic oropharyngeal dysphagia (12/2023) adding to the medical complexity of #1 - #4 - Patient is suspected to be having recurrent aspiration events due to this issue that has likely progressed since her last study. We will consult speech therapy to perform new swallow evaluation to confirm suspicion with help appreciated in advance. 6. Recent admission here from August 27, 2024 to August 29, 2024 for treatment of aspiration pneumonia complicated by acute metabolic encephalopathy and suspectedmalnutrition in the setting of chronic oropharyngeal dysphagia - Noted with similar pattern of admission as on this occasion. 7. Depression with anxiety; on buspirone twice daily, doxepin nightly and clonazepam 3 times daily - Maintain buspirone and doxepin as previous but hold clonazepam as outlined in #3. 8. IBS - Stable. 9. GERD; on omeprazole - Continue PPI. 10. Former tobacco abuse (quit ~2015) - Noted. 11. History of Right rotator cuff tear - Noted. 12. History of Right shoulder fracture; with subsequent limited range of motion- Stable. 13. OA; with history of cervical stenosis lung with scoliosis of the lumbar spine s/p lumbar laminectomy causing chronic low back pain - Noted. We will give acetaminophen prn as outlined in #1. 14. DVT prophylaxis - Enoxaparin 40 mg sq daily plus SCD's. Total time: Approximately (but not less than) 75 minutes. 09/22/24 0642 Cosigner Signature (if applicable): CC: Dr. Ricardo Justice DO; Dr. Harish Luis MD~ Signed [facility]07-07-2025 Discharge summary Author Guilherme Collins [facility] Note Date/Time September 21, 2024 10:43 pm [facility] Medical Records Department [address] [place] [address] Emergency Department Summary 09/21/24 MR#: [id number] Acct: [id number] Name: CAROL DAVID Rep #:[id number] : 1950 74 From: Guilherme Collins MD PCP: Dr. Harish Luis MD Status:ADM I NO Location: [address] History of Present Illness Chief Complaint: Weakness Informant: patient and spouse/S.O. Onset/Context/Timing Onset: Days Context: Gradual Onset Timing: Continuous Current Severity: Moderate Maximum Severity: Moderate Narrative Narrative: 74-year-old female history of prior aspiration pneumonia. states she has been progressively more weak the last several days. She fell 5 times yesterday and 3 times today. She has had decreased oral intake. She denies anyheadache or head trauma. Denies any dysuria. Denies any chest or abdominal pain. She did not realize she had a low-grade temperature so she came in here today. in the hallway discussed with me is concerned she is developing dementia. He states she has been more confused lately. She cannot use the microwave. He does not allow her to drive anymore. She has trouble with her computer at home. They deny any recent vomiting or diarrhea. No dysuria. Prior similar symptoms: Yes Recent Illness/Hospitalization: Yes PFSH PFSH Medical History Aspiration pneumonia Hypoxia Fracture of humeral head [...] Date / Time Penicillins Allergy Rash Verified 09/21/24 18:05 Family History Mother Hypertension CVA (cerebral vascular [...] ambulating with a cane ROS ROS ED ROS Narrative Generalized weakness. Falls. Intermittent confusion. Constitutional Constitutional ED: Reports fever(s) Eyes Eyes: Denies blurry vision ENT ENT ED: Denies ear pain Cardiovascular Cardiovascular: Denies chest pain Respiratory/Chest Respiratory/Chest: Denies cough or dyspnea Gastrointestinal Gastrointestinal: Denies abdominal pain, constipation, diarrhea, melena, nausea or vomiting Genitourinary Genitourinary ED: Denies dysuria or hematuria Musculoskeletal Musculoskeletal: Denies arthralgias or back pain Integumentary Denies abscess Neurologic Neurologic: Denies headache(s) Psychiatric Psychiatric: Denies anxiety Endocrine Endocrinology: Denies cold intolerance Hematologic/Lymphatic Hematologic/Lymphatic: Reports none Allergic/Immunologic Allergic/Immunologic ED: Denies mouth swelling, tongue swelling or urticaria EXAM Physical Exam Narrative Exam Narrative: 74-year-old female vital signs stable she does have a low-grade temperature of 100.0. She does not look septic or toxic. at bedside. H EENT exam pupils round reactive light. Moist mucous membranes. No signs of trauma to herface or scalp. Nontender. Neck and C-spine nontender. Back and spine nontender. Lungs clear to auscultation. Heart regular rhythm rate about 90 no murmur. Chest wall ribs nontender. Abdomen soft nontender. Moving all 4 extremities. Normal lime vat tender strength. Normal dorsi plantarflexion. She has chronic decreased range of motion of the right shoulder from a prior fracture and rotator cuff tear. That is chronic and not new. She has normal lime vat tender strength. She has normal dorsi plantarflexion. No deformity to the extremities. Neurologically she is awake. She is alert. She thought it was August and just her in September. She knew the year was 2024. She knew she was in [facility]. Const Vital Signs: 09/21/24 18:01 09/21/24 18:05 09/21/24 19:34 Temperature 100.0 F H Temperature Source Oral Pulse Rate 94 89 Respiratory Rate 18 18 Respiratory Effort Normal Respiratory Pattern Normal Blood Pressure 153/85 H 151/91 H Blood Pressure Mean 107 111 Pulse Ox 96 97 Oxygen Delivery Method Room Air 09/21/24 19:38 09/21/24 19:39 Temperature 99.3 F H 99.3 F H Temperature Source Oral Pulse Rate 86 86 Respiratory Rate 22 H 24 H Respiratory Effort Respiratory Pattern Blood Pressure 140/74 H 140/74 H Blood Pressure Mean 96 96 Pulse Ox 97 97 Oxygen Delivery Method Room Air Positive well nourished and well developed; Negative for obese, cachectic, contractures or unkempt General Appearance ED: well developed and NAD; Negative for unkempt, cachectic, contractures, cyanotic, diaphoretic or pallor Nutritional Appearance: Negative for cachectic or obese HEENT Reports moist mucous membranes Negative for trauma or tenderness Eyes PERRL and EOMs intact bilaterally General Eye ED: Negative for pale conjunctiva or scleral icterus Neck no lymphadenopathy, supple and no JVD Chest Wall inspection of chest normal and palpation of chest normal Resp normal respiratory effort and clear to auscultation bilaterally Effort and Inspection: Negative for retractions Auscultation: Negative for rales, rhonchi, wheezes or diminished lung sounds Cardio regular rate, regular rhythm, S1 normal heart sound, S2 normal heart sound and no murmurs GI normal to inspection, nondistended, normoactive bowel sounds, non-tender, non-distended and no masses Auscultation: normoactive bowel sounds Palpation: soft; Negative for tender or guarding Back/Spine no CVA tenderness General Back: Negative for CVA tenderness Cervical Spine: Negative for cervical spine tenderness Thoracic Spine / Upper Back: Negative for thoracic spinal tenderness or paraspinal muscle tenderness Lumbar Spine / Lower Back: Negative for lumbar spinal tenderness Extremity normal to inspection General Extremety ED: Negative for edema or tenderness General Extremity: Negative for edema Neuro oriented x3 and CN's II-XII intact bilaterally Sensorium / Orientation: alert and orientation impaired; Negative for lethargic or stuporous Motor Exam: strength 5/5 throughout Psych mental status grossly normal Appearance: Negative for unkempt Mood & Affect: Negative for anxious or tearful Skin no rashes or lesions noted and no wounds General Skin Exam: Negative for jaundice or pallor Lesions: No lesion noted Rashes: No rashes noted Trauma: Negative for abrasion Wounds: Negative for wounds noted MDM MDM MDM Narrative Medical decision making narrative: 74-year-old female 8 falls in the last 2 days. Generalized weakness and low- grade fever. Concern for aspiration pneumonia versus UTI versus other etiologies for the low-grade fever. Most likely will be admitted. CAT scan of her head due to recent confusion and multiple falls but there is no outward signs of head trauma. IV fluids and Tylenol. Repeat exam patient is doing well at 8:02 PM. Due to multiple falls and generalized weakness and a low-grade fever patient will be admitted for further evaluation. I will speak to the hospitalist. Cannot rule out aspiration pneumonia. History & Record Review Discussion w/independent historian: Patient and Family Additional record(s) reviewed:: Prior inpatient record, Prior outpatient record,Prior ED visit and Prior labs Lab Data Attestation: I reviewed the patient's lab results. Lab results narrative: CBC shows white count 8.0. H&H 11.4 and 34.9. Platelets 339. Electrolytes show sodium 140. Gap 10. Normal BUN of 8 creatinine 0.97. Glucose 118. Liver enzymes unremarkable. Alk phos 113. Lactic acid 1.1. UA shows no nitrates. 0 red cells. 0 white cells. 2+ bacteria. COVID, flu and RSV are all negative. Labs: Laboratory Results - last 24 hr 09/21/24 09/21/24 09/21/24 18:15 18:36 18:50 WBC 8.0 RBC 3.64 L Hgb 11.4 L Hct 34.9 L MCV 95.9 MCH 31.3 MCHC 32.7 RDW Std Deviation 48.4 H RDW Coeff of Mehnaz 13.8 Plt Count 339 MPV 10.0 Immature Gran % (Auto) 0.200 Neut % (Auto) 79.3 H Lymph % (Auto) 11.2 L Addison % (Auto) 8.7 Eos % (Auto) 0.2 Baso % (Auto) 0.4 Absolute Neuts (auto) 6.4 Absolute Lymphs (auto) 0.90 Nucleated RBC % 0 Sodium 140 Potassium 3.8 Chloride 105 Carbon Dioxide 24.7 Anion Gap 10 BUN 8 Creatinine 0.97 Estim Creat Clear Calc 40.24 L Est GFR (MDRD) Non-Af 61 BUN/Creatinine Ratio 8.7 L Glucose 118 H Lactic Acid Calcium 9.0 Total Bilirubin 0.47 AST 30 ALT 11 Alkaline Phosphatase 113 H Total Protein 6.4 Albumin 3.3 L Globulin 3.1 Albumin/Globulin Ratio 1.1 Urine Color Yellow Urine Clarity Clear Urine pH 6.0 Ur Specific [place] 1.015 Urine Protein 15 H Urine Glucose (UA) Normal Urine Ketones Negative Urine Occult Blood Negative Urine Nitrite Negative Urine Bilirubin Negative Urine Urobilinogen Normal Ur Leukocyte Esterase 100 H Urine RBC 0 SEEN Urine WBC 0-5 SEEN Ur Squamous Epith Cells 0 SEEN Urine Bacteria 2+ Urine Mucus 0 SEEN Urine Yeast 1+ 09/21/24 18:55 WBC RBC Hgb Hct MCV MCH MCHC RDW Std Deviation RDW Coeff of Mehnaz Plt Count MPV Immature Gran % (Auto) Neut % (Auto) Lymph % (Auto) Addison % (Auto) Eos % (Auto) Baso % (Auto) Absolute Neuts (auto) Absolute Lymphs (auto) Nucleated RBC % Sodium Potassium Chloride Carbon Dioxide Anion Gap BUN Creatinine Estim Creat Clear Calc Est GFR (MDRD) Non-Af BUN/Creatinine Ratio Glucose Lactic Acid 1.1 Calcium Total Bilirubin AST ALT Alkaline Phosphatase Total Protein Albumin Globulin Albumin/Globulin Ratio Urine Color Urine Clarity Urine pH Ur Specific [place] Urine Protein Urine Glucose (UA) Urine Ketones Urine Occult Blood Urine Nitrite Urine Bilirubin Urine Urobilinogen Ur Leukocyte Esterase Urine RBC Urine WBC Ur Squamous Epith Cells Urine Bacteria Urine Mucus Urine Yeast Radiography Chest X-Ray - ED: 2 View, Read by ED Physician, Lungs, Mediastinum, Bony Structures and Chronic Changes Diagnostic Testing: Clinical Impression(s) from Imaging Studies Brain CT 09/21/24 18:37 IMPRESSION: No acute abnormality Reading Location: [facility] Chest X-Ray 09/21/24 19:18 IMPRESSION: Improvement in bilateral hilar and basilar infiltrates Reading [facility] Chest x-ray, 2 views, AP and lateral, interpreted by myself and radiologist shows improvement but cannot rule out aspiration in the bases. There is atelectasis on the left. Normal cardiac silhouette. No obvious bacterial pneumonia. Rhythm Strip Rhythm Strip: Sinus Rhythm Rate: 93 Ectopy: None EKG Initial EKG: Attestation: I personally reviewed and interpreted this EKG as follows: Interpretation: Sinus Rhythm and No Acute Injury Pattern Comments: Normal sinus rhythm rate of 93 no acute signs of [place] nor ischemianor dysrhythmia. Discharge Plan Triage Chief Complaint: Weakness ED Provider: Guilherme Collins Dx/Rx/DC Orders Clinical Impression: Falls, Generalized weakness, History of aspiration pneumonia, Low grade fever, Acute confusion, Failure to thrive Prescriptions: No Action clonazepam 1 MG tablet 1 mg PO TID buspirone 7.5 MG tablet 7.5 mg PO BID omeprazole 20 mg capsule,delayed release(DR/EC) 20 mg PO DAILY doxepin 150 mg capsule 150 mg PO QHS Primary Care Provider: Harish Luis Chi Referrals: Harish Luis Chi, MD [Primary Care Provider] - Print Language: [place] Citizen Disposition Disposition: Acute Care Hospital [facility] What to do if you have Problems For any increased pain, shortness of breath, bleeding, nausea or vomiting, chestpain, or any unexpected problems, contact your Primary Care Provider. Call [facility] ([phone]) or report to the closest Emergency Room. Call 911 if necessary. 09/21/248 <Electronically signed by Guilherme Collins MD> Cosigner Signature (if applicable): CC: Dr. Harish Luis MD ~ Signed [facility] Work Phone: [phone] 303-809007-06-2025 Discharge summary [facility] Medical Records Department [address] [place] [address] Emergency Department Summary 09/21/24 MR#: [id number] Acct: [id number] Name: CAROL DAVID Rep #:[id number] : 1950 74 From: Guilherme Collins MD PCP: Dr. Harish Luis MD Status:ADM I NO Location: [address] History of Present Illness Chief Complaint: Weakness Informant: patient and spouse/S.O. Onset/Context/Timing Onset: Days Context: Gradual Onset Timing: Continuous Current Severity: Moderate Maximum Severity: Moderate Narrative Narrative: 74-year-old female history of prior aspiration pneumonia. states she has been progressivelymore weak the last several days. She fell 5 times yesterday and 3 times today. She has had decreased oral intake. She denies anyheadache or head trauma. Denies any dysuria. Denies any chest or abdominal pain. She did not realize she had a low-grade temperature so she came in here today. in [facility] discussed with me is concerned she is developing dementia. He states she has been more confused lately. She cannot use the microwave. He does not allow her to drive anymore. She has trouble with her computer at home. They deny any recent vomiting or diarrhea. No dysuria. Prior similar symptoms: Yes Recent Illness/[facility]ospital[facility]: [facility] Medical History Aspiration pneumonia Hypoxia Fracture of humeral head [...] Date / Time Penicillins Allergy Rash Verified 09/21/24 18:05 Family History Mother Hypertension CVA (cerebral vascular [...] ambulating with a cane ROS ROS ED ROS Narrative Generalized weakness. Falls. Intermittent confusion. Constitutional Constitutional ED: Reports fever(s) Eyes Eyes: Denies blurry vision ENT ENT ED: Denies ear pain Cardiovascular Cardiovascular: Denies chest pain Respiratory/Chest Respiratory/Chest: Denies cough or dyspnea Gastrointestinal Gastrointestinal: Denies abdominal pain, constipation, diarrhea, melena, nausea or vomiting Genitourinary Genitourinary ED: Denies dysuria or hematuria Musculoskeletal Musculoskeletal: Denies arthralgias or back pain Integumentary Denies abscess Neurologic Neurologic: Denies headache(s) Psychiatric Psychiatric: Denies anxiety Endocrine Endocrinology: Denies cold intolerance Hematologic/Lymphatic Hematologic/Lymphatic: Reports none Allergic/Immunologic Allergic/Immunologic ED: Denies mouth swelling, tongue swelling or urticaria EXAM Physical Exam Narrative Exam Narrative: 74-year-old female vital signs stable she does have a low-grade temperature of 100.0. She does not look septic or toxic. at bedside. H EENT exam pupils round reactive light. Moist mucous membranes. No signs of trauma to herface or scalp. Nontender. Neck and C-spine nontender. Back and spinenontender. Lungs clear to auscultation. Heart regular rhythm rate about 90 no murmur. Chest wall ribs nontender. Abdomen soft nontender. Moving all 4 extremities. Normal lime vat tender strength. Normal dorsi plantarflexion. She has chronic decreased range of motion of the right shoulder from a prior fractureand rotator cuff tear. That is chronic and not new. She has normal lime vat tender strength. She has normal dorsi plantarflexion. No deformity to the extremities. Neurologically she is awake. She is alert. She thought it was August and just her in September. She knew the year was 2024. [facility] Vital Signs: 09/21/24 18:01 09/21/24 18:05 09/21/24 19:34 Temperature 100.0 F H Temperature Source Oral Pulse Rate 94 89 Respiratory Rate 18 18 Respiratory Effort Normal Respiratory Pattern Normal Blood Pressure 153/85 H 151/91 H Blood Pressure Mean 107 111 Pulse Ox 96 97 Oxygen Delivery Method Room Air 09/21/24 19:38 09/21/24 19:39 Temperature 99.3 F H 99.3 F H Temperature Source Oral Pulse Rate 86 86 Respiratory Rate 22 H 24 H Respiratory Effort Respiratory Pattern Blood Pressure 140/74 H 140/74 H Blood Pressure Mean 96 96 Pulse Ox 97 97 Oxygen Delivery Method Room Air Positive well nourished and well developed; Negative for obese, cachectic, contractures or unkempt General Appearance ED: well developed and NAD; Negative for unkempt, cachectic, contractures, cyanotic, diaphoretic or pallor Nutritional Appearance: Negative for cachectic or obese HEENT Reports moist mucous membranes Negative for trauma or tenderness Eyes PERRL and EOMs intact bilaterally General Eye ED: Negative for pale conjunctiva or scleral icterus Neck no lymphadenopathy, supple and no JVD Chest Wall inspection of chest normal and palpation of chest normal Resp normal respiratory effort and clear to auscultation bilaterally Effort and Inspection: Negative for retractions Auscultation: Negative for rales, rhonchi, wheezes or diminished lung sounds Cardio regular rate, regular rhythm, S1 normal heart sound, S2 normal heart sound and no murmurs GI normal to inspection, nondistended, normoactive bowel sounds, non-tender, non- distended and no masses Auscultation: normoactive bowel sounds Palpation: soft; Negative for tender or guarding Back/Spine no CVA tenderness General Back: Negative for CVA tenderness Cervical Spine: Negative for cervical spine tenderness Thoracic Spine / Upper Back: Negative for thoracic spinal tenderness or paraspinal muscle tenderness Lumbar Spine / Lower Back: Negative for lumbar spinal tenderness Extremity normal to inspection General Extremety ED: Negative for edema or tenderness General Extremity: Negative for edema Neuro oriented x3 and CN's II-XII intact bilaterally Sensorium / Orientation: alert and orientation impaired; Negative for lethargic or stuporous Motor Exam: strength 5/5 throughout Psych mental status grossly normal Appearance: Negative for unkempt Mood & Affect: Negative for anxious or tearful Skin no rashes or lesions noted and no wounds General Skin Exam: Negative for jaundice or pallor Lesions: No lesion noted Rashes: No rashes noted Trauma: Negative for abrasion Wounds: Negative for wounds noted MDM MDM MDM Narrative Medical decision making narrative: 74-year-old female 8 falls in the last 2 days. Generalized weakness and low- grade fever. Concern for aspiration pneumonia versus UTI versus other etiologies for the low-grade fever. Most likely will be admitted. CAT scan of her head due to recent confusion and multiple falls but there is no outwardsigns of head trauma. IV fluids and Tylenol. Repeat exam patient is doing well at 8:02 PM. Due to multiple falls and generalized weakness and a low-grade fever patient will be admitted for further evaluation. I will speak to the hospitalist. Cannot rule out aspiration pneumonia. History & Record Review Discussion w/independent historian: Patient and Family Additional record(s) reviewed:: Prior inpatient record, Prior outpatient record,Prior ED visit and Prior labs Lab Data Attestation: I reviewed the patient's lab results. Lab results narrative: CBC shows white count 8.0. H&H 11.4 and 34.9. Platelets 339. Electrolytes show sodium 140. Gap 10. Normal BUN of 8 creatinine 0.97. Glucose 118. Liver enzymes unremarkable. Alk phos 113. Lactic acid 1.1. UA shows no nitrates. 0 red cells. 0 white cells. 2+ bacteria. COVID, flu and RSV are all negative. Labs: Laboratory Results - last 24 hr 09/21/24 09/21/24 09/21/24 18:15 18:36 18:50 WBC 8.0 RBC 3.64 L Hgb 11.4 L Hct 34.9 L MCV 95.9 MCH 31.3 MCHC 32.7 RDW Std Deviation 48.4 H RDW Coeff of Mehnaz 13.8 Plt Count 339 MPV 10.0 Immature Gran % (Auto) 0.200 Neut % (Auto) 79.3 H Lymph % (Auto) 11.2 L Addison % (Auto) 8.7 Eos % (Auto) 0.2 Baso % (Auto) 0.4 Absolute Neuts (auto) 6.4 Absolute Lymphs (auto) 0.90 Nucleated RBC % 0 Sodium 140 Potassium 3.8 Chloride 105 Carbon Dioxide 24.7 Anion Gap 10 BUN 8 Creatinine 0.97 Estim Creat Clear Calc 40.24 L Est GFR (MDRD) Non-Af 61 BUN/Creatinine Ratio 8.7 L Glucose 118 H Lactic Acid Calcium 9.0 Total Bilirubin 0.47 AST 30 ALT 11 Alkaline Phosphatase 113 H Total Protein 6.4 Albumin 3.3 L Globulin 3.1 Albumin/Globulin Ratio 1.1 Urine Color Yellow Urine Clarity Clear Urine pH 6.0 Ur Specific [place] 1.015 Urine Protein 15 H Urine Glucose (UA) Normal Urine Ketones Negative Urine Occult Blood Negative Urine Nitrite Negative Urine Bilirubin Negative Urine Urobilinogen Normal Ur Leukocyte Esterase 100 H Urine RBC 0 SEEN Urine WBC 0-5 SEEN Ur Squamous Epith Cells 0 SEEN Urine Bacteria 2+ Urine Mucus 0 SEEN Urine Yeast 1+ 09/21/24 18:55 WBC RBC Hgb Hct MCV MCH MCHC RDW Std Deviation RDW Coeff of Mehnaz Plt Count MPV Immature Gran % (Auto) Neut % (Auto) Lymph % (Auto) Addison % (Auto) Eos % (Auto) Baso % (Auto) Absolute Neuts (auto) Absolute Lymphs (auto) Nucleated RBC % Sodium Potassium Chloride Carbon Dioxide Anion Gap BUN Creatinine Estim Creat Clear Calc Est GFR (MDRD) Non-Af BUN/Creatinine Ratio Glucose Lactic Acid 1.1 Calcium Total Bilirubin AST ALT Alkaline Phosphatase Total Protein Albumin Globulin Albumin/Globulin Ratio Urine Color Urine Clarity Urine pH Ur Specific [place] Urine Protein Urine Glucose (UA) Urine Ketones Urine Occult Blood Urine Nitrite Urine Bilirubin Urine Urobilinogen Ur Leukocyte Esterase Urine RBC Urine WBC Ur Squamous Epith Cells Urine Bacteria Urine Mucus Urine Yeast Radiography Chest X-Ray - ED: 2 View, Read by ED Physician, Lungs, Mediastinum, Bony Structures and Chronic Changes Diagnostic Testing: Clinical Impression(s) from Imaging Studies Brain CT 09/21/24 18:37 IMPRESSION: No acute abnormality Reading Location: [facility] Chest X-Ray 09/21/24 19:18 IMPRESSION: Improvement in bilateral hilar and basilar infiltrates Reading [facility] Chest x-ray, 2 views, AP and lateral, interpreted by myself and radiologist shows improvement but cannot rule out aspiration in the bases. There is atelectasis on the left. Normal cardiac silhouette.No obvious bacterial pneumonia. Rhythm Strip Rhythm Strip: Sinus Rhythm Rate: 93 Ectopy: None EKG Initial EKG: Attestation: I personally reviewed and interpreted this EKG as follows: Interpretation: Sinus Rhythm and No Acute Injury Pattern Comments: Normal sinus rhythm rate of 93 no acute signs of [place] nor ischemianor dysrhythmia. Discharge Plan Triage Chief Complaint: Weakness ED Provider: Guilherme Collins Dx/Rx/DC Orders Clinical Impression: Falls, Generalized weakness, History of aspiration pneumonia, Low grade fever, Acute confusion, Failure to thrive Prescriptions: No Action clonazepam 1 MG tablet 1 mg PO TID buspirone 7.5 MG tablet 7.5 mg PO BID omeprazole 20 mg capsule,delayed release(DR/EC) 20 mg PO DAILY doxepin 150 mg capsule 150 mg PO QHS Primary Care Provider: Harish Luis Chi Referrals: Harish Luis Chi, MD [Primary Care Provider] - Print Language: [place] Citizen Disposition Disposition: Acute Care Hospital [facility] What to do if you have Problems For any increased pain, shortness of breath, bleeding, nausea or vomiting, chestpain, or any unexpected problems, contact your Primary Care Provider. Call [facility] ([phone]) or report tothe closest Emergency Room. Call 911 if necessary. 09/21/243 Cosigner Signature (if applicable): CC: Dr. Harish Luis MD ~ Signed [facility]07-06-2025 Radiology Diagnostic study note [facility] Imaging Services [address] [place] [address] Chest without Contrast MR#: [id number] Acct: [id number] Name: CAROL DAVID Rep #: [id number] : 1950 F 74 From: Pet er Peer PCP: Dr. Harish Luis MD Status: ADM I NO Study:Chest without Contrast Date of Exam: 09/21/24 Exam# [id number] Ordering Dr: Ricardo Bennett DO PROCEDURE: CHEST WITHOUT CONTRAST 09/21/2024 REASON FOR EXAM: RECENT ASPIRATION PNEUMONIA. TECHNIQUE: Chest CT without contrast. Coronal and Sagittal reconstruction series were provided. One or more dose reduction techniques were used (e.g., Automated exposure control, adjustment of the mA and/or kV according to patient size, use of iterative reconstruction technique RADIATION DOSE SUMMARY: CTDlvol: 6.08 mGy DLP: 217.14 mGycm COMPARISON: No prior chest CTs FINDINGS: Hardware: Lower thoracic spine pain stimulating electrodes. Lymph nodes: Negative Heart and Vasculature: Heart size is normal. No aortic aneurysm Coronary Artery Calcifications: Metallic stents Lungs and Airways: Patchy consolidating airspace disease independent lung, especially left lower lobe Pleura: No effusions. Upper Abdomen: Small hiatal hernia. Bones: Osteoporotic anterior wedge compression deformity in the lower thoracolumbar spine CT/Chest without Contrast IMPRESSION: Residual consolidating airspace disease in the left lower lobe right lower lobe to lesser degree consistent with history of aspiration pneumonia. Coronary artery calcification (CAC) is difficult to visualize due to presence ofmetallic streak artifact suspected metallic heart stents. Correlate with cardiac history. Small hiatal hernia Thoraco lumbar spine area anterior wedge compression fracture Reading Location: [facility] CC: Dr. Ricardo Justice DO; Dr. Harish Luis MD ~ Machine Stamper: Signed [facility]07-06-2025 Radiology Diagnostic study note [facility] Imaging Services [address] [place], [place] [id number] Chest PA and Lateral MR#: [id number] Acct: [id number] Name: CAROL DAVID Rep #: [id number] : 1950 F 74 From: Pet jeanie Moralez DO PCP: Dr. Harish Luis MD Status: REG E R Study:Chest PA and Lateral Date of Exam: 09/21/24 Exam# [id number] Ordering Dr: Hilda Collins MD PROCEDURE: CHEST [...] bilateral hilar and basilar infiltrates Reading Location: [facility] CC: Dr. Guilherme Collins MD; Dr. Harish Luis MD ~ Machine Stamper: Signed [facility]07-06-2025 Radiology Diagnostic study note [facility] Imaging Services [address] [place] [address] Brain/Head without Contrast MR#: [id number] Acct: [id number] Name: CAROL DAVID Rep #: [id number] : 1950 F 74 From: Maria Victoria Rosario MD PCP: Dr. Harish Luis MD Status: REG E R Study:Brain/Head without Contrast Date of Exa m: 09/21/24 Exam# [id number] Ordering Dr: Hilda Collins MD PROCEDURE: BRAIN/HEAD [...] or hemorrhage. No edema. No hydrocephalus. Normal moy- white differentiation. CT/Brain/Head without Contrast IMPRESSION: No acute abnormality Reading Location: [facility] CC: Dr. Guilherme Collins MD; Dr. Harish Luis MD ~ Machine Stamper: Signed [facility]06-13-2025 Discharge summary [facility] Medical Records Department [address] [place] [address] Instructions for Home/Discharge Instructions 08/29/24 1250 MR#: [id number] Acct: [id number] Name: CAROL DAVID Rep #:[id number] : 1950 74 From: Christofer ashby DO [...] can be placed): Home, Self Care 08/29/24 1252Alexpia Espino DO CC: Dr. Harish Luis MD ~ Signed [facility]06-13-2025 [facility] Progress note Author Christofer [facility] Note Date/Time August 28, 2024 1:06 pm [facility] Medical Records Department [address] [place] [address] Progress Note - Hospitalist 08/28/24 1113 MR#: [id number] Acct: [id number] Name: CAROL DAVID Rep #:[id number] : 1950 74 From: Christofer ashby DO PCP: Dr. Harish Luis MD Status:ADM I N Location: [place] [address] Reason for Visit Reason for Visit: Diagnoses [...] 86.9 H, Lymph % (Auto) 7.0 L, Addison % (Auto) 5.1, Eos % (Auto) 0.2, [...] Sl Cldy, Urine pH 6.0, Ur Specific [place] 1.015, Urine Protein 30 H, Urine Glucose [...] lower lobe. Otherwise grossly unchanged Reading Location: [facility] Physical Exam Const alert and no [...] Patient is a 74-year-old female who presented [facility] ED on 08/27/2024 with fevers, cough [...] placed and will keep n.p.o. at midnight forkely EGD tomorrow. 2. Acute metabolic encephalopathy, improving [...] 35 minutes. Charges/Coding Visit Charges Inpatient E&M: 73888 Subs Hosp L2 08/28/24 0042 <Electronically signed by Christofer Espino DO> Cosigner Signature (if applicable): CC: ~ Signed [facility] Work Phone: 1(236) 325-513206-12-2025 Progress note [facility] Medical Records Department [address] [place] [address] Progress Note - Hospitalist 08/28/24 1113 MR#: [id number] Acct: [id number] Name: CAROL DAVID Rep #:[id number] : 1950 74 From: Christofer ashby DO PCP: Dr. Harish Luis MD Status:ADM I N Location: [place] [address] Reason for Visit Reason for Visit: Diagnoses [...] 86.9 H, Lymph % (Auto) 7.0 L, Addison % (Auto) 5.1, Eos % (Auto) 0.2, [...] Sl Cldy, Urine pH 6.0, Ur Specific [place] 1.015,Urine Protein 30 H, Urine Glucose (UA) [...] 278, MPV 9.8, Sodium 140, Potassium 3.3, Zmbkeptf626 H, Carbon Dioxide 20.4 L, Anion Gap11, [...] lower lobe. Otherwise grossly unchanged Reading Location: [facility] Physical Exam Const alert and no [...] Patient is a 74-year-old female who presented [facility] ED on 08/27/2024 with fevers, cough [...] 35 minutes. Charges/Coding Visit Charges Inpatient E&M: 90556 Subs Hosp L2 08/28/24 1306 Cosigner Signature (if applicable): CC: ~ Signed [facility]06-12-2025 History and physical note Author Christofer Espino [facility] Note Date/Time August 28, 2024 7:53 am [facility] Medical Records Department [address] [place] [address] H&P Exam - Hospitalist 08/27/24 1718 MR#: [id number] Acct: [id number] Name: CAROL DAVID Rep #:[id number] : 1950 74 From: Christofer ashby DO PCP: Dr. Harish Luis MD Status:ADM I N Location: [address] 1 HPI - General General Date of Admission: 08/27/24 Date of Service: 08/27/24 Chief Complaint: Fever and cough with confusion HPI Narrative CAROL DAVID, is a 74 F who presented to [facility] ED on 08/27/2024 with fevers, cough [...] to tell me that she was at [facility] and that the year was 2024. [...] past. Will be admitted for further management. [facility] Medical History (Updated 08/28/24 @ 07:[address] Christofer Mosteller, DO) Aspiration pneumonia Hypoxia Fracture of humeral [...] 86.9 H, Lymph % (Auto) 7.0 L, Addison % (Auto) 5.1, Eos % (Auto) 0.2, [...] Sl Cldy, Urine pH 6.0, Ur Specific [place] 1.015, Urine Protein 30 H, Urine Glucose (UA) Normal, Urine Ketones Negative, Urine Occult Blood Negative, Urine Nitrite Negative, Urine Bilirubin Negative, Urine Urobilinogen Normal, Ur Leukocyte Esterase Negative Assessment & Plan Assessment/Plan (1) Encephalopathy due to infection: (2) Aspiration pneumonia: PLAN: Plan Patient is a 74-year-old female who presented [facility] ED on 08/27/2024 with fevers, cough [...] 75 minutes. Charges/Coding Visit Charges Inpatient E&M: 72311 Init Hosp L3 08/28/24 0753 <Electronically signed by Christofer Espino DO> Cosigner Signature (if applicable): CC: Dr. Christofer Espino DO; Dr. Harish Luis MD~ Signed [facility] Work Phone: 1(564) 707-693906-12-2025 History and physical note [facility] Medical Records Department [address] [place] [address] H&P Exam - Hospitalist 08/27/24 1712 MR#: [id number] Acct: [id number] Name: CAROL DAVID Rep #:[id number] : 1950 74 From: Christofer ashby DO PCP: Dr. Harish Luis MD Status:ADM I N Location: [place] [id number]- [id number] HPI - General General Date of Admission: 08/27/24 Date of Service: 08/27/24 Chief Complaint: Fever and cough with confusion HPI Narrative CAROL DAVID, is a 74 F who presented to [facility] ED on 08/27/2024 with fevers, cough [...] quickly then [facility]. On [...] to tell me that she was at [facility] and that the year was 2024. [...] past. Will be admitted for further management. [facility] Medical History (Updated 08/28/24 @ 07:52 by [...] 86.9 H, Lymph % (Auto) 7.0 L, Addison % (Auto) 5.1, Eos % (Auto) 0.2, [...] Sl Cldy, Urine pH 6.0, Ur Specific [place] 1.015,Urine Protein 30 H, Urine Glucose (UA) Normal, Urine Ketones Negative, Urine Occult Blood Negative,Urine Nitrite Negative, Urine Bilirubin Negative, Urine Urobilinogen Normal, Ur Leukocyte Esterase Negative Assessment & Plan Assessment/Plan (1) Encephalopathy due to infection: (2) Aspiration pneumonia: PLAN: Plan Patient is a 74-year-old female who presented [facility] ED on 08/27/2024 with fevers, cough [...] 75 minutes. Charges/Coding Visit Charges Inpatient E&M: 70966 Init Hosp L3 08/28/24 6389 Cosigner Signature (if applicable): CC: Dr. Christofer Espino DO; Dr. Harish Luis MD~ Signed [facility]06-11-2025 Discharge summary Author Huber Ballard [facility] Note Date/Time August 27, 2024 6:51 pm [facility] Medical Records Department [address] [place] [address] Emergency Department Summary 08/27/24 MR#: [id number] Acct: [id number] Name: CAROL DAVID Rep #:[id number] : 1950 74 From: Huber Ballard MD PCP: Dr. Harish Luis MD Status:REG E R Location: ED ADDENDUM by Dr. Huber Ballard MD on 08/27/24 at 1851 Sinus tachycardia rate of 111. VT interval 144 ms cures duration 68 ms. QT duration 218 ms. [place] is normal. She has evidence of low [...] mg tablet 7.5 mg PO BID ANXIETY 12/01/ 20 02/08/23 History clonazepam 1 mg tablet 1 mg [...] social history: Currently ambulating with a cane [facility] ED Constitutional Constitutional ED: Reports chills [...] 86.9 H Lymph % (Auto) 7.0 L Addison % (Auto) 5.1 Eos % (Auto) 0.2 [...] Cldy Urine pH 6.0 Ur Specific [place] 1.015 Urine Protein 30 H Urine Glucose [...] lower lobe. Otherwise grossly unchanged Reading Location: [facility] Management Discussion w/another healthcare provider: Hospitalist [...] laboratories also and x-rays), Discussing w/Patient &/or Family/Life Science Taxonomist, Discussing w/Consultants (Discussed with hospitalist), Arranging Admission or Transfer and - (Treatment for infectious cephalopathy/sepsis due to pneumonia) Discharge Plan Dx/Rx/DC Orders Clinical Impression: Sepsis, Encephalopathy due to infection, Left lower lobe pulmonary infiltrate Disposition Disposition: Acute Care Hospital [facility] What to do if you have Problems For any increased pain, shortness of breath, bleeding, nausea or vomiting, chestpain, or any unexpected problems, contact your Primary Care Provider. Call [facility] ([phone]) or report to the closest Emergency Room. Call 911 if necessary. 08/27/24 1724 <Electronically signed by Huber Ballard MD> Cosigner Signature (if applicable): CC: Dr. Harish Luis MD ~ Signed [facility] Work Phone: 1(551) 974-146806-11-2025 Evaluation note* Diagnosis Onset Date Resolution Status Admit Date Aspiration pneumonia acute August 27, 2024 5:13pm Encephalopathy due to infection acut e August 27, 2024 5:13pm [facility] Work Phone: 1(892) 283-629706-11-2025 Evaluation note* Diagnosis Onset Date Resolution Status Admit Date Aspiration pneumonia acute August 27, 2024 5:13pm Encephalopathy due to infection reso lved August 27, 2024 5:13pm Aspiration pneumonia acute September 21, 2024 8:21pm Confusion acute September 21, 2024 8:21pm Frequent falls acute September 21, 2024 8:21pm [facility] Work Phone: 1(706) 130-831506-11-2025 Evaluation note* Diagnosis Onset Date Resolution Status Admit Date Aspiration pneumonia acute August 27, 2024 5:13pm Encephalopathy due to infection reso lved August 27, 2024 5:13pm Ambulatory dysfunction acute Ju ly 2024 8:12pm Aspiration pneumonia acute September 21, 2024 8:12pm Fever acute September 21, 2024 8:12pm Frequent falls acute September 21, 2024 8:12pm Generalized weakness acute September 21, 2024 8:12pm Oropharyngeal dysphagia acute J mary 2024 8:12pm Toxic metabolic encephalopathy acute September 21, 2024 8:12pm [facility] Work Phone: [phone] 899-461506-11-2025 Evaluation note* Diagnosis Onset Date Resolution Status Admit Date Aspiration pneumonia acute August 27, 2024 5:13pm Encephalopathy due to infection reso lved August 27, 2024 5:13pm Ambulatory dysfunction acute [facility] 2024 8:12pm Aspiration pneumonia acute September 21, 2024 8:12pm Fever acute September 21, 2024 8:12pm Frequent falls acute September 21, 2024 8:12pm Generalized weakness acute September 21, 2024 8:12pm Oropharyngeal dysphagia acute 2024 8:12pm Toxic metabolic encephalopathy acute September 21, 2024 8:12pm Adult failure to thrive acute J mary 2024 2:48pm Falls frequently acute September 2:48pm Weakness acute September 27 2:48pm [facility] Work Phone: 1(157) 521-126206-11-2025 Evaluation note* Diagnosis Onset Date Resolution Status Admit Date Encephalopathy due to infection reso lved August 27, 2024 5:13pm Aspiration pneumonia deleted August 27, 2024 5:13pm Frequent falls inactive September 21, 2024 8:12pm Oropharyngeal dysphagia inactive J mary2024 8:12pm Ambulatory dysfunction deleted [facility] 2024 8:12pm Aspiration pneumonia deleted September 21, 2024 8:12pm Fever deleted September 21, 2024 8:12pm Generalized weakness deleted September 21, 2024 8:12pm Toxic metabolic encephalopathy delet ed September 21, 2024 8:12pm Adult failure to thrive acute J mary 2024 2:48pm Falls frequently acute September 2:48pm Weakness acute September 27 2:48pm Adult failure to thrive acute J mary 2024 3:45pm Anxiety acute September 29 3:45pm Dysphagia acute September 29 3:45pm GERD (gastroesophageal reflu x disease) acute September 29, 2024 3:45pm Insomnia acute September 29 3:45pm Multiple falls acute September 29, 2024 3:45pm Weight loss acute September 29 3:45pm Debility inactive September 29 3:45pm [facility] Work Phone: 1(183) 910-900206-11-2025 Discharge summary [facility] Medical Records Department [address] [place] [address] Emergency Department Summary 08/27/24 MR#: [id number] Acct: [id number] Name: CAROL DAVID Rep #:[id number] : 1950 74 From: Huber Ballard MD PCP: Dr. Harish Luis MD Status:REG E R Location: ED ADDENDUM by Dr. Huber Ballard MD on 08/27/24 at 1851 Sinus tachycardia rate of 111. VT interval 144 ms cures duration 68 ms. QT duration 218 ms. [place] isnormal. She has evidence of low voltage. [...] 86.9 H Lymph % (Auto) 7.0 L Addison % (Auto) 5.1 Eos % (Auto) 0.2 [...] Cldy Urine pH 6.0 Ur Specific [place] 1.015 Urine Protein 30 H Urine Glucose [...] lower lobe. Otherwise grossly unchanged Reading Location: [facility] Management Discussion w/another healthcare provider: Hospitalist [...] laboratories also and x-rays), Discussing w/Patient &/or Family/Life Science Taxonomist, Discussing w/Consultants (Discussed with hospitalist), Arranging Admission or Transfer and - (Treatment for infectious cephalopathy/sepsis due to pneumonia) Discharge Plan Dx/Rx/DC Orders Clinical Impression: Sepsis, Encephalopathy due to infection, Left lower lobe pulmonary infiltrate Disposition Disposition: Acute Care Hospital [facility] What to do if you have Problems For any increased pain, shortness of breath, bleeding, nausea or vomiting, chestpain, or any unexpected problems, contact your Primary Care Provider. Call [facility] ([phone]) or report tothe closest Emergency Room. Call 911 if necessary. 08/27/24 1724 Cosigner Signature (if applicable): CC: Dr. Harish Luis MD ~ Signed [facility]06-11-2025 Radiology Diagnostic study note [facility] Imaging Services [address] [place], [place] [address] Chest 1 View (Portable) MR#: [id number] Acct: [id number] Name: CAROL DAVID Rep #: [id number] : 1950 F 74 From: Kayla Ham MD PCP: Dr. Harish Luis MD Status: REG E R Study:Chest 1 View (Portable) Date of Exam: 08/27/24 Exam# [id number] Ordering Dr: Malcom Ballard MD PROCEDURE: CHEST [...] lower lobe. Otherwise grossly unchanged Reading Location: [id number] CC: Dr. Harish Luis MD; Dr. Huber Ballard MD ~ Machine Stamper: Signed [facility]03-19-2025 Radiology Diagnostic study note [facility] Imaging Services [address] [place] [address] Shoulder min 2 Views MR#: [id number] Acct: [id number] Name: CAROL DAVID Rep #: [id number] : 1950 F 74 From: Robert Mancuso DO PCP: Dr. Harish Luis MD Status: REG E R Study:Shoulder min 2 Views Date of Exam: 06/04/24 Exam# [id number] Ordering Dr: Mat White DO PROCEDURE: Right [...] White DO; Dr. Harish Luis MD ~ Machine Stamper: Signed [facility]10-18-2024 [facility]08-16-2023 Discharge summary Author Armando Miranda [facility] November 01, 2022 11:03am Note Date/Time November 01, 2022 7: 51am [facility] Medical Records Department [address] [place] [address] Emergency Department Summary 11/01/22 MR#: [id number] Acct: [id number] Name: CAROL DAVID Rep #:[id number] : 1950 72 From: Armando Santamaria PCP: Dr. Harish Luis MD Status:ADM I N Location: [place] [address] HPI History of Present Illness Chief Complaint: Weakness PFSH PFSH Medical History Allergic rhinitis Ambulates with cane [...] bisacodyl 10 mg rectal suppository 10 mg VT DAILY PRN Constipation 30 days #0 ea10/14/22 [...] Oxygen Delivery Method Room Air Room Air [facility] Narrative Medical decision making narrative: HISTORY OF [...] rhythm, normal axis, no intervals, no STEMI [facility] Narrative: The patient was hemodynamically stable, afebrile [...] (Auto) 44.7 L Lymph % (Auto) 38.1 Addison % (Auto) 10.0 Eos % (Auto) 5.0 [...] your Primary Care Provider. Call [facility] ([phone]) or report to the closest Emergency Room. Call 911 if necessary. 11/01/22 1103 <Electronically signed by Armando Miranda DO> Cosigner Signature (if applicable): CC: Dr. Harish Luis MD ~ Signed [facility] Work Phone: [phone]) 653-893207-29-2023 Discharge summary Author Zia Kalpesh [facility] October 14, 2022 8:34am Note Date/Time October 14, 2022 8:25 am [facility] Medical Records Department [address] [place] [address] Instructions for Home/Discharge Instructions 10/14/2224 MR#: [id number] Acct: [id number] Name: CAROL DAVID Rep #:[id number] : 1950 72 From: Zia Rivero PCP: [...] and then as needed for constipation Available bpov-ixp-syyyhvb. bisacodyl 10 mg Suppository 10 mg VT DAILY PRN (Reason: Constipation) 30 Days Qty: 0 0RF Rx Instructions: Jctg-akl-nhjnenx. polyethylene glycol 3350 [Miralax] 17 gram/dose powder [...] MD; Dr. Nallely Mccann MD ~ Signed [facility] Work Phone: 1(260) 618-828007-29-2023 Progress note Author Nallely Mccann [facility] October 14, 2022 8:22am Note Date/Time October 14, 2022 8:22 am [facility] Medical Records Department [address] [place] [address] Progress Note - Surgery 10/14/22819 MR#: [id number] Acct: [id number] Name: CAROL DAVID Rep #:[id number] : 1950 72 From: Nallely Mccann MD PCP: Dr. Harish Luis MD Status:ADM I N Location: MS3 ZN441-5 Subjective Subjective Per patient and nursing she [...] Cloudy, Urine pH 6.0, Ur Specific [place] 1.015, Urine Protein Negative, Urine Glucose (UA) [...] 78.3 H, Lymph % (Auto) 12.0 L, Addison % (Auto) 9.2, Eos % (Auto) 0.0, [...] Neut % (Auto) 62.2, Lymph % (Auto) 27.8,Addison % (Auto) 8.4, Eos % (Auto) 0.9, [...] retention-management per hospitalist. Nallely Mccann M.D. Pager: [phone] [facility] [address] [place] [address], [facility], [address] [place] [address] Office: [phone] Charges/Coding Visit Charges Inpatient E&M: 09022 Subs Hosp L2 10/14/22 0822 <Electronically signed by Nallely Mccann MD> Cosigner Signature (if applicable): CC: ~ Signed [facility] Work Phone: [phone]) 986-868007-29-2023 Consult note Author Nallely Mccann [facility] October 14, 2022 8:20am Note Date/Time October 13, 2022 1:53 pm [facility] Medical Records Department [address] [place] [address] Consultation - Surgical 10/13/22 1353 MR#: [id number] Acct: [id number] Name: CAROL DAVID Carolee Rep #:[id number] : 1950 72 From: Nallely Mccann MD PCP: Dr. Harish Luis MD Status:ADM I N Location: [place]3 MT631-2 Assessment & Plan Assessment/Plan (1) Abnormal CT [...] to urinary retention. Nallely Mccann M.D. Pager: [phone] [facility] [address] [place] [address], Outpatient [facility], [address] [place] [address] Office: [phone] HPI Consult Data Date of Consult: 10/14/22 HPI Narrative Reason for Consultation: Pneumatosis of right colon on CT HPI Narrative: CAROL DAVID, is a 72 F who presents to [...] is currently getting a IV fluid bolus. [facility] Medical History Allergic rhinitis Ambulates with cane [...] Cloudy, Urine pH 6.0, Ur Specific [place] 1.015, Urine Protein Negative, Urine Glucose (UA) [...] 78.3 H, Lymph % (Auto) 12.0 L, Addison % (Auto) 9.2, Eos % (Auto) 0.0, [...] EDT Reading Location ID and State: [facility] / [place] , Service support , Charges/Coding Visit Charges Inpatient E&M: 59024 Init Hosp L3 10/14/22 0820 <Electronically signed by Nallely Mccann MD> Cosigner Signature (if applicable): CC: Dr. Harish Luis MD; Dr. Nallely Mccann MD~ Signed [facility] Work Phone: [phone]) [phone] Discharge summary Author Sheyla Slade [facility] October 13, 2022 10:21pm Note Date/Time October 13, 2022 11:2 1am [facility] Medical Records Department [address] [place] [address] Emergency Department Summary 10/13/22 MR#: [id number] Acct: [id number] Name: CAROL DVAID Rep #:[id number] : 1950 72 From: Sheyla Santamaria PCP: Dr. Harish Luis MD Status:ADM I N Location: [place]3 TT639-7 HPI HPI - GI History of Present [...] time she also had an EGDfor dysphagia. [facility] Medical History Allergic rhinitis Ambulates with cane [...] (Auto) Neut % (Auto) Lymph % (Auto) Addison % (Auto) Eos % (Auto) Baso % [...] Cloudy Urine pH 6.0 Ur Specific [place] 1.015 Urine Protein Negative Urine Glucose (UA) [...] 78.3 H Lymph % (Auto) 12.0 L Addison % (Auto) 9.2 Eos % (Auto) 0.0 [...] Urine Clarity Urine pH Ur Specific [place] Urine Protein Urine Glucose (UA) Urine Ketones [...] 11:53 EDT Reading Location ID and State: [address] [place] [address] , Service support , Discharge Plan Dx/Rx/DC Orders Clinical Impression: Paralytic ileus of small intestine and colon, Urinary retention, Abnormal CT ofthe abdomen Disposition Disposition: Acute Care Hospital [facility] Discharge Date/Time: 10/13/22 15:24 What to do if you have Problems For any increased pain, shortness of breath, bleeding, nausea or vomiting, chestpain, or any unexpected problems, contact your Primary Care Provider. Call [facility] ([phone]) or report to the closest Emergency Room. Call 911 if necessary. 10/13/222220 <Electronically signed by Sheyla Slade DO> Cosigner Signature (if applicable): CC: Dr. Harish Luis MD ~ Signed [facility] Work Phone: 1(852) 960-140707-28-2023 History and physical note Author Zia Posey [facility] October 13, 2022 3:13pm Note Date/Time October 13, 2022 2:42 pm [facility] Medical Records Department [address] [place] [address] H&P Exam - Hospitalist 10/13/22 1440 MR#: [id number] Acct: [id number] Name: CAROL DAVID Rep #:[id number] : 1950 72 From: Zia Rivero PCP: Dr. Harish Luis MD Status:ADM I N [facility] - General General Date of Admission: 10/13/22 Date of Service: 10/13/22 Chief Complaint: Constipation for long time but acutely for last 2 days HPI Narrative CAROL DAVID, is a 72 F was sent to [...] in assessment plan. Patient is further admitted. [facility] Medical History Allergic rhinitis Ambulates with cane [...] Cloudy, Urine pH 6.0, Ur Specific [place] 1.015, Urine Protein Negative, Urine Glucose (UA) [...] 78.3 H, Lymph % (Auto) 12.0 L, Addison % (Auto) 9.2, Eos % (Auto) 0.0, [...] no meaningful recovery Total time spent in fagh-yq-fqfg encounter in discussion of advanced directive 17 [...] Cloudy, Urine pH 6.0, Ur Specific [place] 1.015, Urine Protein Negative, Urine Glucose (UA) [...] 78.3 H, Lymph % (Auto) 12.0 L, Addison % (Auto) 9.2, Eos % (Auto) 0.0, [...] 0.7 L Charges/Coding Visit Charges Inpatient E&M: 50846 Init Hosp L3 Procedures Hospitalists Procedures: 12053 Advncd Care Plan 30 Min 10/13/22 1513 <Electronically signed by Zia Posey MD> Cosigner Signature (if applicable): CC: Dr. Zia Posey MD; Dr. Harish Luis MD~ Signed [facility] Work Phone: Discharge summary Author Christofer [facility] Note Date/Time August 29, 2024 12:5 2pm [facility] Medical Records Department [address] [place] [address] Instructions for Home/Discharge Instructions 08/29/24 1250 MR#: [id number] Acct: [id number] Name: CAROL DAVID Rep #:[id number] : 1950 74 From: Christofer ashby DO [...] CC: Dr. Harish Luis MD ~ Signed [facility] Work Phone: Discharge summary Author Anastasia Khan [facility] Note Date/Time September 22, 2024 5:44p m [facility] Medical Records Department [address] [place] [address] Discharge Summary 09/22/24 1737 MR#: [id number] Acct: [id number] Name: CAROL DAVID Rep #:[id number] : 1950 74 From: Anastasia Khan MD PCP: Dr. Harish Luis MD Status:ADM I NO Location: [place] [address] Providers Date of Admission: 09/21/24 Date of Discharge: 09/22/24 Primary Care Physician: Dr. Harish Luis MD Reason For Visit: FREQUENT FALLS, CONFUSION & RECENT ASPIRATION Diagnosis Discharge Diagnosis (1) Aspiration pneumonia: Status: Acute Code(s): J69.0 - Pneumonitis due to inhalation of food and vomit Qualifiers: Aspiration pneumonia type: unspecified Laterality: left Lung location:lower lobe of lung Qualified Code(s): J69.0 - Pneumonitis due to inhalation of food and vomit Plan: DISCHARGE DIAGNOSES: #1. Acute Encephalopathy, suspected multifactorial, secondary to Acute Suspected Aspiration PNA (possible GN organisms) with known chronic oropharyngeal dysphagia in addition to Chronic BZD usage with persistent debility, mechanical falls #2. Anxiety and depression #3. Chronic back pain, debility with cervical stenosis, scoliosis of the spine #4. History of VTE #5. Chronic normocytic anemia #6. Tobacco use #7. GERD #8. CODE status: Patient SUNITA is her and living will is currently in place. Full Code status. Medications at Discharge Home Medications buspirone 7.5 mg tablet 7.5 mg PO BID ANXIETY 02/17/20 clonazepam 1 mg tablet 0.5 mg (1/2 x 1 mg) PO BID ANXIETY 14 days #14 tabs 09/22/24 doxepin 150 mg capsule 150 mg PO QHS ANXIETY 30 days #30 caps 09/22/24 levofloxacin 500 mg tablet 500 mg PO DAILY 5 days #5 tabs 09/22/24 metronidazole 500 mg tablet 500 mg PO Q8H 5 days #15 tabs 09/22/24 omeprazole 40 mg capsule,delayed release 40 mg PO DAILY 30 days #30 caps 09/22/24 Hospital Course Operations None Procedures None Summary of Care Provided Minutes Spent on Discharge: 35 Hospital Course: The patient is a 74 y/o F w/ PMHx: Anxiety and Depression, Chronic oropharyngealdysphagia with frequent history of aspiration pneumonia, Chronic back pain, Chronic normocytic anemia, Hx VTE, GERD, Tobacco use who presented to the [facility] 09/21/24 with history of recurrent confusion and falls. Admitted to PCU, maintained on aspiration precautions, started on empiric therapy with IV Levaquin and Flagyl given allergy history w/ aspiration concerns, initially NPO with ST evaluation with eventual clearance for regular diet/thin liquids with direct supervision one-to-one, presentation CT imaging with no acute findings and given unable to perform MRI brain secondary to leads present, thus be cautious repeat CT head obtained with again no acute findings. Mental status returned to baseline. Given heavily sedative medication patient doxepin decreased, temporarily held clonazepam and continue BuSpar. However given patient's significant regimen at discharge she was continued on half dose of thedoxepin with recommended continued weaning per primary care physician in addition to wean at the least initial phase of aggressive clonazepam regimen with again close follow-up with primary care physician to further wean with continuation only of the scheduled BuSpar regimen. Strongly encouraged this wean and alteration of regimen as benzodiazepine and high dose doxepin likely contributing to heavy fall risk and aspiration potentially. Patient on 09/22/2024despite strong recommendation to remain inpatient for continued evaluation and care was adamant about being discharged to home but was at least willing to remain for ST evaluation and repeat CT of the head. Given these recommendationsare now in place and repeat CT head is negative will plan discharge to home withearly close follow-up with primary care physician and continued outpatient ST evaluations and treatment with prescription given. Upon discharge transition tooral Levaquin and Flagyl for more anaerobic coverage for aspiration concerns with plan for an additional 5-day course. Again at discharge strongly encouraged the medication changes for decreasing sedation and weaning with continued close early follow-up with PCP. Patient clinically did improve quicker than expected and was mentating appropriately on 09/22/2024 however as noted did encourage her to remain but she was adamant about discharge. Weight / BMI Weight Weight: 105 lb 6.095 oz Body Mass Index (BMI) 18.6 ABG / Lab / Microbiology Data 09/22/24 04:26 09/22/24 04:26 Laboratory: Laboratory Results - last 24 hr 09/21/24 18:15: Sodium 140, Potassium 3.8, Chloride 105, Carbon Dioxide 24.7, Anion Gap 10, BUN 8, Creatinine 0.97, Estim Creat Clear Calc 40.24 L, Est GFR (MDRD) Non-Af 61, BUN/Creatinine Ratio 8.7 L, Glucose 118 H, Hemoglobin A1c 5.5,Calcium 9.0, Magnesium 1.9, Total Bilirubin 0.47, AST 30, ALT 11, Alkaline Phosphatase 113 H, Total Protein 6.4, Albumin 3.3 L, Globulin 3.1, Albumin/Globulin Ratio 1.1, Vitamin B12 757, TSH 0.358 09/21/24 18:36: WBC 8.0, RBC 3.64 L, Hgb 11.4 L, Hct 34.9 L, MCV 95.9, MCH 31.3,MCHC 32.7, RDW Std Deviation 48.4 H, RDW Coeff of Mehnaz 13.8, Plt Count 339, MPV 10.0, Immature Gran % (Auto) 0.200, Neut % (Auto) 79.3 H, Lymph % (Auto) 11.2 L,Addison % (Auto) 8.7, Eos % (Auto) 0.2, Baso % (Auto) 0.4, Absolute Neuts (auto) 6.4, Absolute Lymphs (auto) 0.90, Nucleated RBC % 0 09/21/24 18:50: Urine Color Yellow, Urine Clarity Clear, Urine pH 6.0, Ur Specific [place] 1.015, Urine Protein 15 H, Urine Glucose (UA) Normal, Urine Ketones Negative, Urine Occult Blood Negative, Urine Nitrite Negative, Urine Bilirubin Negative, Urine Urobilinogen Normal, Ur Leukocyte Esterase 100 H, Urine RBC 0 SEEN, Urine WBC 0- 5 SEEN, Ur Squamous Epith Cells 0 SEEN, Urine Bacteria 2+, Urine Mucus 0 SEEN, Urine Yeast 1+, Urine Opiates Screen NEGATIVE, U Buprenorphine Qual NEGATIVE, Ur Oxycodone Screen NEGATIVE, Urine Methadone Screen NEGATIVE, Urine Fentanyl Screen NEGATIVE, Ur Barbiturates Screen NEGATIVE, Ur Phencyclidine Scrn NEGATIVE, Ur Amphetamines Screen NEGATIVE, U Benzodiazepines Scrn PRESUMPTIVE POSITIVE, Urine Cocaine Screen NEGATIVE, U Cannabinoids Screen NEGATIVE 09/21/24 18:55: Lactic Acid 1.1 09/21/24 20:21: Ethyl Alcohol < 10.1 09/21/24 21:00: Serum Folate 6.21 09/22/24 04:26: WBC 5.5, RBC 3.45 L, Hgb 10.8 L, Hct 33.1 L, MCV 95.9, MCH 31.3,MCHC 32.6, RDW Std Deviation 48.6 H, RDW Coeff of Mehnaz 13.8, Plt Count 319, MPV 9.2, Immature Gran % (Auto) 0.400, Neut % (Auto) 61.9, Lymph % (Auto) 26.9, Addison% (Auto) 8.5, Eos % (Auto) 1.8, Baso % (Auto) 0.5, Absolute Neuts (auto) 3.4, Absolute Lymphs (auto) 1.48, Nucleated RBC % 0, D-Dimer Quant (PE/DVT) 0.32, Sodium 143, Potassium 3.7, Chloride 111 H, Carbon Dioxide 23.5, Anion Gap 8, BUN7, Creatinine 0.74, Estim Creat Clear Calc 46.56 L, Est GFR (MDRD) Non-Af 86, BUN/Creatinine Ratio 9.7 L, Glucose 76, Calcium 8.5, Phosphorus 3.1, Total Bilirubin 0.46, AST 26, ALT 11, Alkaline Phosphatase 98, Total Protein 5.6 L, Albumin 2.9 L, Globulin 2.7, Albumin/Globulin Ratio 1.1, Triglycerides 81, Cholesterol 217 H, LDL Cholesterol, Calc 132, VLDL Cholesterol 16, HDL Cholesterol 69, Cholesterol/HDL Ratio 3.16 Microbiology: Microbiology 09/21/24 18:52 Mucosa - Nose SARS-CoV-2, Influenza & RSV (PCR) - Final ABG: ABG 09/22/24 04:33 Specimen Type PEYTON Sample Site VENOUS VBG pH 7.39 VBG pO2 39 VBG HCO3 29 H VBG Total CO2 30 VBG O2 Sat (Calc) 72 H VBG Base Excess 4 H POC Mix VBG pCO2 Pt Tmp 48.3 O2 Delivery Device Room Air Radiography Diagnostic Testing: Radiology Impression Brain CT 09/21/24 18:37 IMPRESSION: No acute abnormality Reading Location: [facility] Chest X-Ray 09/21/24 19:18 IMPRESSION: Improvement in bilateral hilar and basilar infiltrates Reading Location: [facility] Chest CT 09/21/24 20:09 IMPRESSION: Residual consolidating airspace disease in the left lower lobe right lower lobe to lesser degree consistent with history of aspiration pneumonia. Coronary artery calcification (CAC) is difficult to visualize due to presence ofmetallic streak artifact suspected metallic heart stents. Correlate with cardiac history. Small hiatal hernia Thoraco lumbar spine area anterior wedge compression fracture Reading Location: [facility] Brain CT 09/22/24 15:04 IMPRESSION: No acute intracranial process. Consider MR if symptoms persist. Reading Location: [facility] D/C Instructions DC O2, CPAP, BIPAP Needs Home O2 Discharge instructions: No Meaningful Use Info Meaningful Use Meaningful Use Diagnoses (Choose all that apply): None applicable Ischemic Stroke Statin Dosing Therapy Reference: STATIN DOSE THERAPY REFERENCE: * Patients > 75 years receive moderate or high dose statin therapy. * Patients 75 years or YOUNGER should receive HIGH intensity statin dose unless contraindicated. You will be required to document reason for non-treatment if statin daily dose does not meet guidelines. HIGH DOSE STATIN THERAPY DAILY Atorvastatin > than or = to 40 mg Rosuvastatin > than or = to 20 mg Amlodipine + Atorvastatin > than or = to 2.5/40 mg Ezetimibe + Simvastatin 10/80 mg Simvastatin 80mg Discharge Plan Admission Admit Date/Time: 09/21/24 20:12 Primary Reason for Your Visit: Encephalopathy, Aspiration PNA Attending Provider: Anastasia Khan Primary Care Provider: Harish Luis Chi Consulting Providers: Ricardo Justice Instructions Patient Instructions: Dysphagia Aspiration, Dysphagia Aspiration Tx Additional Instructions / Restrictions: ADDITIONAL DISCHARGE INFORMATION/INSTRUCTIONS: #1. Acute Encephalopathy (CONFUSION), suspected multifactorial, secondary to Acute Suspected Aspiration Pneumonia with known chronic oropharyngeal dysphagia in addition to Chronic sedation medication (Doxepin, Buspar, Clonazepam all concurrently) usage with persistent debility, mechanical falls: -- Maintain initially on IV Levaquin and IV Flagyl while inpatient given allergyhistory, transition to oral regimen for an additional 5-day duration at discharge. --CT head upon admission with no acute findings and repeat CT head at approximately 24 hours unremarkable. --ST evaluation with recommendation for regular diet/thin liquids with direct supervision one-to-one. --Encourage continued outpatient ST evaluation and ongoing evaluations with prescription given. --Given significant sedated regimen we recommend at this time decreasing doxepinto 150 mg nightly and further decreasing this slowly to avoid notable withdrawalsymptoms in addition to transition of clonazepam from 1 mg p.o. 3 times daily to0.5 mg twice daily and continue tapering down per PCP in addition. At this timewe will continue currently prescribed buspirone regimen. Would benefit from alternate medication for insomnia consideration. Discharge Orders/Prescriptions Prescriptions: New levofloxacin 500 mg tablet 500 mg PO DAILY 5 Days Qty: 5 0RF metronidazole 500 mg tablet 500 mg PO Q8H 5 Days Qty: 15 0RF Continued buspirone 7.5 MG tablet 7.5 mg PO BID Changed clonazepam 1 MG tablet 0.5 mg PO BID 14 Days Qty: 14 0RF Rx Instructions: Please cut back to 0.5 mg BID and follow closely with PCP to have directed taper off given already on buspirone regimen also. omeprazole 40 mg capsule,delayed release(DR/EC) 40 mg PO DAILY 30 Days Qty: 30 0RF Patient Comments: pt states she take the med once a day but not every day doxepin 150 mg capsule 150 mg PO QHS 30 Days Qty: 30 0RF Rx Instructions: Given notable encephalopathy, recurrent aspiration issues, decrease to 150 mgq HS and with PCP direction taper dose over the next several weeks. Referrals / Follow Up: Harish Luis Chi, MD [Primary Care Provider] - (Follow-up within PCP within 3-5 days.) Disposition Disposition (needs filled in before D/C Order can be placed): Home Health Service Charges/Coding Visit Charges Inpatient E&M: 06704 Disch Hosp >30min 09/22/24 1744 <Electronically signed by Anastasia Khan MD> Cosigner Signature (if applicable): CC: Dr. Anastasia Khan MD; Dr. Harish Luis MD~ Signed [facility] Work Phone: Discharge summary Author Anastasia Khan [facility] Note Date/Time September 22, 2024 6:08p carolee [facility] Medical Records Department [address] [place] [address] Instructions for Home/Discharge Instructions 09/22/24 1807 MR#: [id number] Acct: [id number] Name: CAROL DAVID Rep #:[id number] : 1950 74 From: Anastasia Khan MD PCP: Dr. Harish Luis MD Status:ADM I NO Discharge Instructions Diet Discharge Diet: - (Regular diet/thin liquids with direct supervision one-to-one) DC O2, CPAP, BIPAP needs Home O2 Discharge instructions: No Dressing / Incision Discharge Activity: - (Encourage routine activity in the home with assistive devices for added support.) May resume sexual activity in: No Restrictions Weight Bearing Status: Weight bearing as tolerated Dressing / Incision Call your doctor if you observe: Fever of 101 or Higher, Numbness or Tingling, Shortness of breath, Dizziness, Chest pain, Increased palpitations (irregular heartbeat), Calf discomfort and Uncontrolled pain Follow Up Care Test Results: Test results from this visit will be discussed in further detail at your follow- up appointment, if applicable. Discharge Plan Admission Admit Date/Time: 09/21/24 20:12 Primary Reason for Your Visit: Encephalopathy, Aspiration PNA Attending Provider: Anastasia Khan Primary Care Provider: Harish Luis Chi Consulting Providers: Ricardo Justice Instructions Patient Instructions: Dysphagia Aspiration, Dysphagia Aspiration Tx Additional Instructions / Restrictions: ADDITIONAL DISCHARGE INFORMATION/INSTRUCTIONS: #1. Acute Encephalopathy (CONFUSION), suspected multifactorial, secondary to Acute Suspected Aspiration Pneumonia with known chronic oropharyngeal dysphagia in addition to Chronic sedation medication (Doxepin, Buspar, Clonazepam all concurrently) usage with persistent debility, mechanical falls: -- Maintain initially on IV Levaquin and IV Flagyl while inpatient given allergyhistory, transition to oral regimen for an additional 5-day duration at discharge. --CT head upon admission with no acute findings and repeat CT head at approximately 24 hours unremarkable. --ST evaluation with recommendation for regular diet/thin liquids with direct supervision one-to-one. --Encourage continued outpatient ST evaluation and ongoing evaluations with prescription given. --Given significant sedated regimen we recommend at this time decreasing doxepinto 150 mg nightly and further decreasing this slowly to avoid notable withdrawalsymptoms in addition to transition of clonazepam from 1 mg p.o. 3 times daily to0.5 mg twice daily and continue tapering down per PCP in addition. At this timewe will continue currently prescribed buspirone regimen. Would benefit from alternate medication for insomnia consideration. Discharge Orders/Prescriptions Prescriptions: New levofloxacin 500 mg tablet 500 mg PO DAILY 5 Days Qty: 5 0RF metronidazole 500 mg tablet 500 mg PO Q8H 5 Days Qty: 15 0RF Continued buspirone 7.5 MG tablet 7.5 mg PO BID Changed clonazepam 1 MG tablet 0.5 mg PO BID 14 Days Qty: 14 0RF Rx Instructions: Please cut back to 0.5 mg BID and follow closely with PCP to have directed taper off given already on buspirone regimen also. omeprazole 40 mg capsule,delayed release(DR/EC) 40 mg PO DAILY 30 Days Qty: 30 0RF Patient Comments: pt states she take the med once a day but not every day doxepin 150 mg capsule 150 mg PO QHS 30 Days Qty: 30 0RF Rx Instructions: Given notable encephalopathy, recurrent aspiration issues, decrease to 150 mgq HS and with PCP direction taper dose over the next several weeks. Referrals / Follow Up: Harish Luis Chi, MD [Primary Care Provider] - (Follow-up within PCP within 3-5 days.) Disposition Disposition (needs filled in before D/C Order can be placed): Home Health Service 09/22/241807<Electronically signed by Anastasia Khan MD>Anastasia Khan MD CC: Dr. Ricardo Justice DO; Dr. Harish Luis MD ~ Signed [facility] Work Phone: Discharge summary Author Ricardo Padilla [facility] Note Date/Time September 29, 2024 2:53 pm [facility] Medical Records Department [address] [place] [address] Discharge Summary 09/29/24 1442 MR#: [id number] Acct: [id number] Name: CAROL DAVID Rep #:[id number] : 1950 74 From: Ricardo Padilla MD PCP: Dr. Harish Luis MD Status:ADM I N Location: [facility] [id number] Providers Date of Admission: 09/27/24 Date of Discharge: 09/29/24 Primary Care Physician: Dr. Harish Luis MD Reason For Visit: ADULT FFT, RECURRENT SERIAL FALLS Diagnosis Discharge Diagnosis (1) Falls frequently: Status: Acute Code(s): R29.6 - Repeated falls (2) Adult failure to thrive: Status: Acute Code(s): R62.7 - Adult failure to thrive Plan Patient is a 74-year-old lady who presented to the emergency department with recurrent falls 1. Adult failure to thrive with recurrent falls ? Patient admitted to regular nursing floor. Patient home meds were reviewed including doxepin and clonazepam dose of which were reduced. Requested for PT OT eval and certified social workers in health care to assist with disposition. Plans for patient to bedischarged to assisted facility pending bed availability 2. History of chronic oropharyngeal dysphagia with previous history of aspiration pneumonia ? Speech therapy consulted 3. GERD ? On PPI 4. Depression with anxiety - Patient is on buspirone doxepin as well as clonazepam dose of the last 2 adjusted 5. Chronic back pain ? Complicating care PT OT as tolerated 6. Anemia ? Secondary to chronic disorder monitoring H&H and transfuse if patient becomes symptomatic or hemoglobin falls below 7 7. Tobacco dependence ? Counseled on cessation, offered nicotine patch for tobacco cravings 8. DVT prophylaxis ? On enoxaparin 10. Suspected severe protein calorie malnutrition ? Consult has been placed to dietitian Time spent in the patient's overall evaluation,decision-making process, review of diagnostic data, adjustment of management, discussion with other providers, nursing nursing and ancillary staff involved in patient's care documentation, 35 Minutes Medications at Discharge Home Medications buspirone 7.5 mg tablet 7.5 mg PO BID ANXIETY 02/17/20 clonazepam 1 mg tablet 0.5 mg (1/2 x 1 mg) PO BID ANXIETY 14 days #14 tabs 09/22/24 doxepin 150 mg capsule 150 mg PO QHS ANXIETY 30 days #30 caps 09/22/24 omeprazole 40 mg capsule,delayed release 40 mg PO DAILY 30 days #30 caps 09/22/24 acetaminophen 325 mg tablet 650 mg (2 x 325 mg) PO Q4H PRN PRN Fever, pain - 12/26 #0 tabs 09/29/24 aluminum-mag hydroxide-simethicone 400 mg-400 mg-40 mg/5 mL oral susp (Mag-Al Plus Extra Strength) 30 ml PO Q6H PRN PRN Gastric Burning #0 mL 09/29/24 lidocaine 5 % topical patch 1 patch topical 2200 #0 ea 09/29/24 melatonin 3 mg tablet 3 mg PO QHS PRN PRN Insomnia #0 tabs 09/29/24 sennosides 8.6 mg-docusate sodium 50 mg tablet (Stimulant Laxative Plus) 2 tab PO BID PRN PRN Constipation #0 tabs 09/29/24 Physical Exam Narrative GENERAL: cooperative HEENT: Atraumatic; normocephalic EYES; Anicteric, Normal Conjunctiva NECK; supple, normal thyroid, RESPIRATORY: Diminished to auscultation CARDIOVASCULAR: Regular S1 S2, GI: soft, normoactive bowel sounds, : No Renal angle tenderness; EXTREMITIES: No edema, no clubbing, MUSCULOSKELETAL: no muscle wasting NEURO: Awake; no lateralizing signs. SKIN: No Rash PSYCH; Flat affect Weight / BMI Weight Weight: 46.2 kg Body Mass Index (BMI) 19.2 ABG / Lab / Microbiology Data 09/29/24 05:10 09/29/24 05:10 Laboratory: Laboratory Results - last 24 hr 09/29/24 05:10: WBC 4.6, RBC 3.06 L, Hgb 9.5 L, Hct 29.1 L, MCV 95.1, MCH 31.0, MCHC 32.6, RDW Std Deviation 48.3 H, RDW Coeff of Mehnaz 14.0, Plt Count 426, MPV 9.7, Immature Gran % (Auto) 0.400, Neut % (Auto) 47.5, Lymph % (Auto) 36.5, Addison% (Auto) 9.3, Eos % (Auto) 5.4 H, Baso % (Auto) 0.9, Absolute Neuts (auto) 2.2, Absolute Lymphs (auto) 1.68, Sodium 142, Potassium 3.7, Chloride 110 H, Carbon Dioxide 23.3, Anion Gap 9, BUN 9, Creatinine 0.75, Estim Creat Clear Calc 46.56 L, Est GFR (MDRD) Non-Af 83, BUN/Creatinine Ratio 11.6, Glucose 86, Calcium 8.6,Total Bilirubin 0.19, AST 26, ALT 12, Alkaline Phosphatase 80, Total Protein 5.3L, Albumin 2.5 L, Globulin 2.8, Albumin/Globulin Ratio 0.9 Microbiology: Microbiology 09/27/24 13:14 Mucosa - Nose SARS-CoV-2, Influenza & RSV (PCR) - Final D/C Instructions Discharge Activity: Return to Normal Activity Call your doctor if you observe: Fever of 101 or Higher, Shortness of breath, Fainting spells and Chest pain DC O2, CPAP, BIPAP Needs Home O2 Discharge instructions: No Meaningful Use Info Meaningful Use Meaningful Use Diagnoses (Choose all that apply): None applicable Discharge Plan Admission Admit Date/Time: 09/27/24 14:48 Attending Provider: Ricardo Padilla Primary Care Provider: Harish Luis Chi Consulting Providers: Anastasia Khan Discharge Orders/Prescriptions Prescriptions: New lidocaine 5 % Adhesive Patch,Medicated 1 patch topical 2200 Qty: 0 0RF Protocol: *Topical Application Instructions APPLICATION INSTRUCTIONS: back alum-mag hydroxide-simeth [Mag-Al Plus Extra Strength] 400-400-40 mg/5 mL Suspension 30 ml PO Q6H PRN PRN (Reason: Gastric Burning) Qty: 0 0RF melatonin 3 mg Tablet 3 mg PO QHS PRN PRN (Reason: Insomnia) Qty: 0 0RF sennosides-docusate sodium [Stimulant Laxative Plus] 8.6-50 mg Tablet 2 tab PO BID PRN PRN (Reason: Constipation) Qty: 0 0RF acetaminophen 325 mg Tablet 650 mg PO Q4H PRN PRN (Reason: Fever, pain -12/26) Qty: 0 0RF Continued buspirone 7.5 MG tablet 7.5 mg PO BID clonazepam 1 MG tablet 0.5 mg PO BID 14 Days Qty: 14 0RF Rx Instructions: Please cut back to 0.5 mg BID and follow closely with PCP to have directed taper off given already on buspirone regimen also. omeprazole 40 mg capsule,delayed release(DR/EC) 40 mg PO DAILY 30 Days Qty: 30 0RF Patient Comments: pt states she take the med once a day but not every day doxepin 150 mg capsule 150 mg PO QHS 30 Days Qty: 30 0RF Rx Instructions: Given notable encephalopathy, recurrent aspiration issues, decrease to 150 mgq HS and with PCP direction taper dose over the next several weeks. Discontinued levofloxacin 500 mg tablet 500 mg PO DAILY 5 Days Qty: 5 0RF metronidazole 500 mg tablet 500 mg PO Q8H 5 Days Qty: 15 0RF Referrals / Follow Up: Harish Luis Chi, MD [Primary Care Provider] - Within 2 Weeks Disposition Disposition (needs filled in before D/C Order can be placed): Assisted Facility Charges/Coding Visit Charges Inpatient E&M: 78324 Disch Hosp >30min 09/29/24 145 <Electronically signed by Ricardo Padilla MD> Cosigner Signature (if applicable): CC: Dr. Ricardo Padilla MD; Dr. Harish Luis MD~ Signed [facility] Work Phone: Discharge summary Author Ricardo Padilla [facility] Note Date/Time September 29, 2024 2:55 pm [facility] Medical Records Department [address] [place] [address] Transfer to [facility] MR#: [id number] Acct: [id number] Name: CAROL DAVID Rep #:[id number] : 1950 74 From: Ricardo Padilla MD PCP: Dr. Harish Luis MD Status:ADM I N Certification of patient admission REQUIRED AT TIME OF ADMISSION. I CERTIFY THAT POST-HOSPITAL ECF SERVICES ARE REQUIRED TO BE GIVEN ON AN IN-PATIENT BASIS BECAUSE OF THE ABOVE NAMED PATIENT'S NEED FOR SENIOR LIVING CARE ON A CONTINUING BASIS FOR THE CONDITION(S) FOR WHICH HE/SHE WAS RECEIVING IN-PATIENT HOSPITAL SERVICES PRIOR TO HIS/HER TRANSFER TO THE [facility]. 09/29/245<Electronically signed by Ricardo Padilla MD> Diet Diet Order/Speech Therapy: INPATIENT Hospital Diet / Speech Therapy Order(s) 09/27/24 15:57 Diet: Regular - General Food consistency:: Regular Liquid Consistency:: Regular/Thin Type of Dietary Supplement:: Ensure Plus High Protein Diet Comments: 120ml EPHP TID with meals Speech Therapy Comments: regular diet/thin liquids with direct supervision one-to-one Routine Orders/Code Status Code Status: Full Code DC O2, CPAP, BIPAP needs Home O2 Discharge instructions: No Wound(s) abraisions left forearm: Wound Type: open to air Therapies Physical Therapy: Eval and Treat Occupational Therapy: Eval and Treat Problem/Diagnosis (1) Falls frequently: Status: Acute Code(s): R29.6 - Repeated falls (2) Adult failure to thrive: Status: Acute Code(s): R62.7 - Adult failure to thrive Plan Patient is a 74-year-old lady who presented to the emergency department with recurrent falls 1. Adult failure to thrive with recurrent falls ? Patient admitted to regular nursing floor. Patient home meds were reviewed including doxepin and clonazepam dose of which were reduced. Requested for PT OT eval and certified social workers in health care to assist with disposition. Plans for patient to bedischarged to assisted facility pending bed availability 2. History of chronic oropharyngeal dysphagia with previous history of aspiration pneumonia ? Speech therapy consulted 3. GERD ? On PPI 4. Depression with anxiety - Patient is on buspirone doxepin as well as clonazepam dose of the last 2 adjusted 5. Chronic back pain ? Complicating care PT OT as tolerated 6. Anemia ? Secondary to chronic disorder monitoring H&H and transfuse if patient becomes symptomatic or hemoglobin falls below 7 7. Tobacco dependence ? Counseled on cessation, offered nicotine patch for tobacco cravings 8. DVT prophylaxis ? On enoxaparin 10. Suspected severe protein calorie malnutrition ? Consult has been placed to dietitian Time spent in the patient's overall evaluation,decision-making process, review of diagnostic data, adjustment of management, discussion with other providers, nursing nursing and ancillary staff involved in patient's care documentation, 35 Minutes Allergies/Procedures Done in Hospital Allergies Penicillins Allergy (Verified 09/27/24 12:28) Rash Type of Care/Length of Stay Estimated LOS: Convalescent Care Less Than 30 days Type of Care Needed: Skilled Rehab Potential: Good Prognosis: Good Additional Orders/Day of Discharge Day of Discharge: 09/29/24 Dietary and Speech Recommendations Dietitian Recommendations/Changes: Continue regular diet. Will add 120ml EPHP TID with meals. Will monitor weight trends. Discharge Plan Admission Admit Date/Time: 09/27/24 14:48 Attending Provider: Ricardo Padilla Primary Care Provider: Harish Luis Chi Consulting Providers: Anastasia Khan Discharge Orders/Prescriptions Prescriptions: New lidocaine 5 % Adhesive Patch,Medicated 1 patch topical 2200 Qty: 0 0RF Protocol: *Topical Application Instructions APPLICATION INSTRUCTIONS: back alum-mag hydroxide-simeth [Mag-Al Plus Extra Strength] 400-400-40 mg/5 mL Suspension 30 ml PO Q6H PRN PRN (Reason: Gastric Burning) Qty: 0 0RF melatonin 3 mg Tablet 3 mg PO QHS PRN PRN (Reason: Insomnia) Qty: 0 0RF sennosides-docusate sodium [Stimulant Laxative Plus] 8.6-50 mg Tablet 2 tab PO BID PRN PRN (Reason: Constipation) Qty: 0 0RF acetaminophen 325 mg Tablet 650 mg PO Q4H PRN PRN (Reason: Fever, pain 1-12/26) Qty: 0 0RF Continued buspirone 7.5 MG tablet 7.5 mg PO BID clonazepam 1 MG tablet 0.5 mg PO BID 14 Days Qty: 14 0RF Rx Instructions: Please cut back to 0.5 mg BID and follow closely with PCP to have directed taper off given already on buspirone regimen also. omeprazole 40 mg capsule,delayed release(DR/EC) 40 mg PO DAILY 30 Days Qty: 30 0RF Patient Comments: pt states she take the med once a day but not every day doxepin 150 mg capsule 150 mg PO QHS 30 Days Qty: 30 0RF Rx Instructions: Given notable encephalopathy, recurrent aspiration issues, decrease to 150 mgq HS and with PCP direction taper dose over the next several weeks. Discontinued levofloxacin 500 mg tablet 500 mg PO DAILY 5 Days Qty: 5 0RF metronidazole 500 mg tablet 500 mg PO Q8H 5 Days Qty: 15 0RF Referrals / Follow Up: Harish Luis Chi, MD [Primary Care Provider] - Within 2 Weeks Disposition Disposition (needs filled in before D/C Order can be placed): Assisted Facility 09/29/24 9265 <Electronically signed by Ricardo Padilla MD> Cosigner Signature (if applicable): CC: Dr. Anastasia Khan MD; Dr. Harish Luis MD ~ [facility] Work Phone: Discharge summary Author Harish Luis [facility] Note Date/Time October 03, 2024 2:45 pm [facility] Medical Records Department [address] [place] [id number] Discharge Summary 10/03/24 1442 MR#: [id number] Acct: [id number] Name: CAROL DAVID Rep #:[id number] : 1950 74 From: Harish Luis MD PCP: Dr. Harish Luis MD Status:ADM I N Location: [place] [address] Providers Date of Admission: 09/29/24 Primary Care Physician: Dr. Harish Luis MD Consultations 10/01/24 07:22 Consult: Gastroenterology Routine Consulting Provider: [facility] Reason for Consult: Esophageal retention per speech therapy. EMERGENT Consult: No MD Notified: Yes Date Notified: 10/01/24 Time Notified: : Method of Notification: Text Reason For Visit: FAILURE TO THRIVE AND FREQUENT FALLS Diagnosis Discharge Diagnosis (1) Dysphagia: Status: Acute Code(s): R13.10 - Dysphagia, unspecified Qualifiers: Dysphagia type: oropharyngeal phase Qualified Code(s): R13.12 - Dysphagia, oropharyngeal phase Plan 74 year old female with below past medical history hospitalized for falls, failure to thrive, admitted to TCU with debility, here for rehabilitation, strengthening, prior to discharge home with . * Debility - PT/OT. * Dysphagia - ST. * Pain - Tylenol 1000mg q6 prn pain (1-10), Lidoderm 1 patch td daily. * Bowel - senna/colace 1 tablet bid, Magnesium citrate 300mL daily prn. * Adult immunization - Administer pneumonia vaccine, covid vaccine, flu vaccine as appropriate. * DVT prophylaxis - Hold, frequent falls. The following psychotropic medication was present on admission: Buspar 7.5mg bid. Psychotropic medication therapy is indicated for a diagnosis of: Anxiety. Based on my clinical evaluation, continuation of the medication is necessary at this time. Gradual dose reduction plan (select one): ____ GDR will be attempted. Will monitor patient symptoms and behaviors in response to GDR. __x__ GRD contraindicated. Reason contraindicated: stable chronic fpc use. The following psychotropic medication was present on admission: Clonazepam 0.5mgbid. Psychotropic medication therapy is indicated for a diagnosis of: Anxiety. Based on my clinical evaluation, continuation of the medication is necessary at this time. Gradual dose reduction plan (select one): __x__ GDR will be attempted. Will monitor patient symptoms and behaviors in response to GDR. ____ GRD contraindicated. Reason contraindicated: The following psychotropic medication was present on admission: Doxepin 75mg qhs. Psychotropic medication therapy is indicated for a diagnosis of: Insomnia. Based on my clinical evaluation, continuation of the medication is necessary at this time. Gradual dose reduction plan (select one): __x__ GDR will be attempted. Will monitor patient symptoms and behaviors in response to GDR. ____ GRD contraindicated. Reason contraindicated: Medications at Discharge Home Medications doxepin 150 mg capsule 150 mg PO QHS ANXIETY 30 days #30 caps 09/22/24 omeprazole 40 mg capsule,delayed release 40 mg PO DAILY GERD 30 days #30 caps 09/22/24 lidocaine 5 % topical patch 1 patch topical 2200 Pain #0 ea 09/29/24 melatonin 3 mg tablet 3 mg PO QHS PRN PRN Insomnia #0 tabs 09/29/24 sennosides 8.6 mg-docusate sodium 50 mg tablet (Stimulant Laxative Plus) 2 tab PO BID PRN PRN Constipation #0 tabs 09/29/24 Hospital Course Operations None Procedures None Summary of Care Provided Minutes Spent on Discharge: 35 Hospital Course: 74 year old female with below past medical history hospitalized for falls, failure to thrive, admitted to TCU with debility, here for rehabilitation, strengthening, prior to discharge home with . Carol discharge AGAINST MEDICAL ADVICE. Physical Exam Const alert General Appearance: cooperative HEENT normocephalic Eyes PERRL and EOMs intact bilaterally Neck supple, no JVD and no carotid bruits Resp normal respiratory effort, normal air movement and clear to auscultation bilaterally Cardio regular rate and regular rhythm GI normal to inspection, nondistended, normoactive bowel sounds, non-tender and non-distended Extremity normal capillary refill General Extremity: Negative for edema Skin no rashes or lesions noted General Skin Exam: no breakdown Psych affect normal Appearance: appropriate Medical Records Data Medical Nutrition Assessment Dietitian: Malnutrition Criteria Met Start: 10/01/24 11:57 Freq: Status: Active Protocol: Document 10/01/24 11:57 MARLENE (Rec: 10/01/24 11:57 SLA [id number]) Nutrition Malnutrition Evidence of Yes Malnutrition Exists Malnutrition (severe Chronic ): Evidenced By Suboptimal Energy Intake (Severe),Weight Loss (Severe) Clinical Problem Chronic Disease or Condition Related Malnutrition Etiology related to issues w/ dysphagia/impaired dentition requiring modified consistency of food and inadequate energy intake Signs/Symptoms as evidenced by po intake meeting <75% of est nutritional needs and unintended wt loss of ~18% x 6-7 months; BMI 19.5 Status Active Problem Recommendation Dietitian Continue liberal regular diet - consistency per COMMUNITY SERVICES MANAGER- d Recommendations/ /t signs and symptoms of malnutrition Changes Continue Ensure Plus High Protein tid w/ meals for increased nutrition if consumed Rec consider appetite stimulant to help encourage increased po intake Weight / BMI Weight Weight: 46.72 kg Body Mass Index (BMI) 19.4 ABG / Lab / Microbiology Data 10/02/24 05:06 09/30/24 05:04 Microbiology: Microbiology 09/30/24 14:30 Stool Stool Occult Blood (STEPHANIE) - Final D/C Instructions Discharge Activity: Return to Normal Activity Weight Bearing Status: Weight bearing as tolerated Call your doctor if you observe: Fever of 101 or Higher, Inability to urinate, Inability to have a bowel movement, Shortness of breath, Dizziness, Fainting spells, Swelling in the ankles, Chest pain and Uncontrolled pain DC O2, CPAP, BIPAP Needs Home O2 Discharge instructions: No Additional Instructions: Carol discharge AGAINST MEDICAL ADVICE. Meaningful Use Info Meaningful Use Meaningful Use Diagnoses (Choose all that apply): None applicable Discharge Plan Admission Admit Date/Time: 09/29/24 15:45 Primary Reason for Your Visit: Debility. Attending Provider: Harish Luis Chi Primary Care Provider: Harish Luis Chi Instructions Additional Instructions / Restrictions: Carol discharge AGAINST MEDICAL ADVICE. Discharge Orders/Prescriptions Prescriptions: Discontinued buspirone 7.5 MG tablet 7.5 mg PO BID clonazepam 1 MG tablet 0.5 mg PO BID 14 Days Qty: 14 0RF Rx Instructions: Please cut back to 0.5 mg BID and follow closely with PCP to have directed taper off given already on buspirone regimen also. alum-mag hydroxide-simeth [Mag-Al Plus Extra Strength] 400-400-40 mg/5 mL Suspension 30 ml PO Q6H PRN PRN (Reason: Gastric Burning) Qty: 0 0RF acetaminophen 325 mg Tablet 650 mg PO Q4H PRN PRN (Reason: Fever, pain 1-12/26) Qty: 0 0RF No Action omeprazole 40 mg capsule,delayed release(DR/EC) 40 mg PO DAILY 30 Days Qty: 30 0RF Patient Comments: pt states she take the med once a day but not every day doxepin 150 mg capsule 150 mg PO QHS 30 Days Qty: 30 0RF Rx Instructions: Given notable encephalopathy, recurrent aspiration issues, decrease to 150 mgq HS and with PCP direction taper dose over the next several weeks. lidocaine 5 % Adhesive Patch,Medicated 1 patch topical 2199 Qty: 0 0RF Protocol: *Topical Application Instructions APPLICATION INSTRUCTIONS: back melatonin 3 mg Tablet 3 mg PO QHS PRN PRN (Reason: Insomnia) Qty: 0 0RF sennosides-docusate sodium [Stimulant Laxative Plus] 8.6-50 mg Tablet 2 tab PO BID PRN PRN (Reason: Constipation) Qty: 0 0RF Referrals / Follow Up: Harish Luis Chi, MD [Primary Care Provider] - Disposition Disposition (needs filled in before D/C Order can be placed): Against Medical Advice 10/03/24 1445 <Electronically signed by Harish Luis MD> Cosigner Signature (if applicable): CC: Dr. Harish Luis MD~ Signed [facility] Work Phone: evaluation noteNo assessment information available [facility] Work Phone: Evaluation note* Diagnosis Onset Date Resolution Status Pain from implanted hardware acute [facility] Work Phone: Evaluation note* Diagnosis Onset Date Resolution Status Pain from implanted hardware acute Hypoxemia acute Influenza acute Pneumonia acute Respiratory failure acute [facility] Work Phone: Evaluation note* Diagnosis Onset Date Resolution Status Facial droop acute Hypoxemia resolved Influenza resolved Pneumonia resolved Respiratory failure resolved Paralytic ileus of small intestine and colon acute [facility] Work Phone: Evaluation note* Diagnosis Onset Date Resolution Status Facial droop acute Hypoxemia resolved Influenza resolved Pneumonia resolved Respiratory failure resolved Abnormal CT of the abdomen a cute Paralytic ileus of small intestine and colon acute Urinary retention acute [facility] Work Phone: Evaluation note* Diagnosis Onset Date Resolution Status Facial droop acute Hypoxemia resolved Influenza resolved Pneumonia resolved Respiratory failure resolved Abnormal CT of the abdomen a cute Paralytic ileus of small intestine and colon resolved Urinary retention resolved Acute alteration in mental status acute Influenza B acute [facility] Work Phone: Evaluation note* Diagnosis Onset Date Resolution Status Paralytic ileus of small intestine and colon resolved Urinary retention resolved Abnormal TSH acute Toxic metabolic encephalopathy acute Debility resolved Generalized weakness resolve d Influenza B resolved [facility] Work Phone: Evaluation note* Diagnosis Onset Date Resolution Status Acute dehydration acute Acute hypotension acute Acute kidney injury acute Aspiration pneumonia acute Closed head injury acute Falls acute Fracture of humeral head acu te Hypoxia acute Pulmonary emboli acute [facility] Work Phone: History and physical note Author Zia Posey [facility] October 13, 2022 3:13pm Note Date/Time October 13, 2022 2:42 pm [facility] Medical Records Department [address] [place] [id number] H&P Exam - Hospitalist 10/13/22 1440 MR#: [id number] Acct: [id number] Name: CAROL DAVID Rep #:[id number] : 1950 72 From: Zia Rivero PCP: Dr. Harish Luis MD Status:ADM I N Location: [place] [address] HPI - General General Date of Admission: 10/13/22 Date of Service: 10/13/22 Chief Complaint: Constipation for long time but acutely for last 2 days HPI Narrative CAROL DAVID, is a 72 F was sent to [...] in assessment plan. Patient is further admitted. [facility] Medical History Allergic rhinitis Ambulates with cane [...] Cloudy, Urine pH 6.0, Ur Specific [place] 1.015, Urine Protein Negative, Urine Glucose (UA) [...] 78.3 H, Lymph % (Auto) 12.0 L, [place] % (Auto) 9.2, Eos % (Auto) 0.0, [...] no meaningful recovery Total time spent in [id number] encounter in discussion of advanced directive 17 [...] Cloudy, Urine pH 6.0, Ur Specific [place] 1.015, Urine Protein Negative, Urine Glucose (UA) [...] 78.3 H, Lymph % (Auto) 12.0 L, [place]ison % (Auto) 9.2, Eos % (Auto) 0.0, [...] 0.7 L Charges/Coding Visit Charges Inpatient E&M: 57662 Init Hosp L3 Procedures Hospitalists Procedures: 34589 Advncd Care Plan 30 Min 10/13/22 1513 <Electronically signed by Zia Posey MD> Cosigner Signature (if applicable): CC: Dr. Zia Posey MD; Dr. Harish Luis MD~ Signed [facility] Work Phone: History and physical note Author Anastasia Khan [facility] Note Date/Time September 27, 2024 3:09 pm [facility] Medical Records Department [address] [place] [address] H&P Exam - Hospitalist 09/27/24 1447 MR#: [id number] Acct: [id number] Name: CAROL DAVID Rep #:[id number] : 1950 74 From: Anastasia Khan MD PCP: Dr. Harish Luis MD Status:REG E R Location: ED HPI - General General Date of Admission: 09/27/24 Date of Service: 09/27/24 Chief Complaint: Mechanical fall, recurrent, unable to safely care for self at home HPI Narrative The patient is a 74 y/o F w/ PMHx: CKD stage II per GFR trending, Anxiety and Depression, Chronic oropharyngeal dysphagia with frequent history of aspiration pneumonia, Chronic back pain, Chronic normocytic anemia, Hx VTE, GERD, Tobacco use, recent discharge 09/22/24 following history of recurrent falls and confusion admitted to PCU maintained on aspiration precautions empirically treated with IVantibiotic therapy for aspiration with ST evaluation with eventual clearance forregular diet/thin liquids with direct supervision one-to-one with patient medications for home altered with doxepin decreased and recommended continued taper outpatient, decreased on clonazepam with recommended continued taper outpatient and continued BuSpar given history of frequent falls with strong recommendation for continued hospitalization however patient on 09/22/2024 was extremely adamant for discharge and noted willingness to continue speech therapyevaluations outpatient discharged on oral levaquin/flagyl for an additional 5-day course now presenting to the [facility] ED on 09/27/2024 withhistory of recurrent frequent falls including another on day of presentation when she was try to go through the cupboards unfortunately falling and hit her head with no loss of consciousness nor any neck discomfort but given recurrent event prompted ED evaluation. Workup in the ED included T98.5, heart rate 83, BP114/76, respiratory rate 16, 95% on room air, CBC with WBC 8.5, hemoglobin 10.9,MCV 95.5, platelet 374 without marked shift, CMP with BUN/creatinine 9/0.85, GFR72, glucose 118, AST/ALT 44/20, alk phos 102, ammonia 12.1, urinalysis with specific gravity 1.015, protein 30, occult blood 10, negative nitrite, leukocyteEstrace 500 but no urine RBCs or WBCs and no urine bacteria, CT of the brain with no acute intracranial finding, chest x-ray with stable bilateral lower lungzone consolidation left greater than right compatible with pneumonitis/pneumonia, plain film of the hip and pelvis with no acute bony abnormality, EKG with sinus rhythm with no acute evidence of ischemia. In the ED patient ministered maintenance IV fluids. [facility] Medical History Anxiety and depression Fracture of humeral head Falls Pulmonary emboli Hypoxia Aspiration pneumonia Closed head injury Vitamin D deficiency Irritable bowel syndrome without [...] mg tablet 7.5 mg PO BID ANXIETY 09/20/24 22:00 History 7.5 mg clonazepam 1 mg tablet 0.5 mg (1/2 x 1 mg) PO BID A NXIETY 09/22/24 09/20/24 Rx 14 days #14 tabs doxepin 150 mg capsule 150 mg PO QHS ANXIETY 30 da ys #30 09/22/24 09/20/24 22:00 Rx caps 300 mg levofloxacin 500 mg tablet 500 mg PO DAILY 5 days #5 t abs 09/22/24 Unknown Rx metronidazole 500 mg tablet 500 mg PO Q8H 5 days #15 t abs 09/22/24 Unknown Rx omeprazole 40 mg capsule,delayed 40 mg PO DAILY 30 day s #30 caps 09/22/24 09/20/24 08:00 Rx release 40 mg Allergy/AdvReac Type Severity Reaction Status Date / Time Penicillins Allergy Rash Verified 09/27/24 12:28 Family History Mother Hypertension CVA (cerebral vascular [...] ambulating with a cane ROS ROS Narrative Admission Review of Systems: CONSTITUTIONAL: No weight loss, fever, chills, + weakness or fatigue. HEENT: Eyes: No visual loss, blurred vision, double vision or yellow sclerae. Ears, Nose, Throat: No hearing loss, sneezing, congestion, runny nose or sore throat. SKIN: No rash or itching, lesions, wounds except + very states ecchymoses, bruising with frequent falls. CARDIOVASCULAR: No chest pain, chest pressure or chest discomfort, palpitations,edema, orthopnea, syncopal events. RESPIRATORY: No shortness of breath, cough or sputum, wheezing, hemoptysis. GASTROINTESTINAL: No anorexia, nausea, vomiting or diarrhea, abdominal pain, melena, BRBPR. GENITOURINARY: No dysuria, frequency, urgency or retention. NEUROLOGICAL: + Generalized weakness. No headache, dizziness, syncope, paralysis, ataxia, numbness or tingling in the extremities, focal weakness, change in bowel or bladder control, seizure. MUSCULOSKELETAL: + muscle, back pain, joint pain or stiffness. HEMATOLOGIC: + Chronic anemia, easy bleeding/bruising. LYMPHATICS: No enlarged nodes. No history of splenectomy. PSYCHIATRIC: + History of anxiety and depression. ENDOCRINOLOGIC: No reports of sweating, cold or heat intolerance. No polyuria orpolydipsia. ALLERGIES: No history of asthma, hives, eczema or rhinitis. Vital Signs Vital Signs Vital Signs: 09/27/24 12:26 09/27/24 12:33 09/27/24 12:36 Temperature 98.5 F Temperature Source Oral Pulse Rate 83 Respiratory Rate 16 Respiratory Effort Normal Normal Respiratory Pattern Normal Blood Pressure 114/76 Blood Pressure Mean 88 Pulse Ox 95 Oxygen Delivery Method Room Air Weight Weight: 106 lb 4.205 oz Body Mass Index (BMI) 18.8 Physical Exam Narrative Physical Examination: General: Awake, alert, oriented x 3, remains cooperative, seated upright in ED bed, fatigued, admits to recent recurrent fall. Skin: Normal color, normal turgor, no icterus, no cyanosis except very stage ecchymoses, abrasions. HEENT: AT/NC, EOMI, PERRLA, dry MM, no carotid bruits or JVD noted. Lungs: Mildly diminished, greater bases, mildly increased respiratory rate but no distress, no significant rales, rhonchi or wheezing. Heart: Regular rate and rhythm; no gallop, rub audible. Abdomen: Soft, thin habitus, NTTP, ND, mildly hyperactive BS, no appreciated HSM. Extremities: No cyanosis, no clubbing, mild ankle not markedly pitting edema. Neurological: Patient awake, alert, oriented as noted, cognitive function suspect baseline intact; pupils equally reactive to light and accommodation, cranial nerves grossly normal, moving all 4 extremities, no focal deficits, strength moderately to severely globally decreased. Psychiatric: Affect appears fatigued otherwise normal, no acute evidence of depressive or anxiety feelings but does have underlying history. Results Lab / Micro Data 09/27/24 12:59 09/27/24 12:59 Labs: Laboratory Results - last 24 hr 09/27/24 12:59: WBC 8.5, RBC 3.53 L, Hgb 10.9 L, Hct 33.7 L, MCV 95.5, MCH 30.9,MCHC 32.3, RDW Std Deviation 48.4 H, RDW Coeff of Mehnaz 14.0, Plt Count 374, MPV 10.3, Immature Gran % (Auto) 0.600, Neut % (Auto) 80.5 H, Lymph % (Auto) 11.4 L,Addison % (Auto) 5.9, Eos % (Auto) 1.1, Baso % (Auto) 0.5, Absolute Neuts (auto) 6.8, Absolute Lymphs (auto) 0.97, Nucleated RBC % 0, Sodium 141, Potassium 3.3, Chloride 105, Carbon Dioxide 24.3, Anion Gap 12, BUN 9, Creatinine 0.85, Estim Creat Clear Calc 44.18 L, Est GFR (MDRD) Non-Af 72, BUN/Creatinine Ratio 10.3, Glucose 118 H, Calcium 8.9, Total Bilirubin 0.31, AST 44 H, ALT 20, Alkaline Phosphatase 102, Ammonia 12.1, Total Protein 6.6, Albumin 3.1 L, Globulin 3.5, Albumin/Globulin Ratio 0.9 09/27/24 13:10: Urine Color Yellow, Urine Clarity Sl. Cloudy, Urine pH 6.0, Ur Specific [place] 1.015, Urine Protein 30 H, Urine Glucose (UA) Normal, Urine Ketones Negative, Urine Occult Blood 10 H, Urine Nitrite Negative, Urine Bilirubin Negative, Urine Urobilinogen Normal, Ur Leukocyte Esterase 500 H, Urine RBC 0-5 SEEN, Urine WBC 0-5 SEEN, Ur Squamous Epith Cells 0 SEEN, Urine Bacteria 0 SEEN, Urine Mucus 0 SEEN, Urine Yeast 1+ Micro: Microbiology 09/27/24 13:14 Mucosa - Nose SARS-CoV-2, Influenza & RSV (PCR) - Final Imaging Radiology Impression Brain CT 09/27/24 12:46 IMPRESSION: No acute intracranial finding. Reading Location: [facility] Chest X-Ray 09/27/24 13:25 IMPRESSION: Stable bilateral lower lung zone consolidations, [id number], compatible with pneumonitis/pneumonia. Reading Location: [facility] Pelvis X-Ray 09/27/24 13:50 IMPRESSION: No acute pelvic deformity. Reading Location: [facility] Assessment & Plan Assessment/Plan (1) Falls frequently: (2) Adult failure to thrive: PLAN: Plan The patient is a 74 y/o F w/ PMHx: CKD stage II per GFR trending, Anxiety and Depression, Chronic oropharyngeal dysphagia with frequent history of aspiration pneumonia, Chronic back pain, Chronic normocytic anemia, Hx VTE, GERD, Tobacco use, recent discharge 09/22/24 following history of recurrent falls and confusion admitted to PCU maintained on aspiration precautions empirically treated with IVantibiotic therapy for aspiration with ST evaluation with eventual clearance forregular diet/thin liquids with direct supervision one-to-one with patient medications for home altered with doxepin decreased and recommended continued taper outpatient, decreased on clonazepam with recommended continued taper outpatient and continued BuSpar given history of frequent falls with strong recommendation for continued hospitalization however patient on 09/22/2024 was extremely adamant for discharge and noted willingness to continue speech therapyevaluations outpatient discharged on oral levaquin/flagyl for an additional 5-day course now presenting to the [facility] ED on 09/27/2024 withhistory of recurrent frequent falls including another on day of presentation when she was try to go through the cupboards unfortunately falling and hit her head with no loss of consciousness nor any neck discomfort but given recurrent event prompted ED evaluation. #1. Adult FTT with serial mechanical falls, unsafe to be living at home given possibility of recurrent trauma: Will admit to medical surgical floor, maintain on fall and aspiration precautions, will continue as noted with reduced dose of doxepin and reduced dose of clonazepam with transition to assisted facility once precertification obtained with ongoing slow taper of these two agents to avoid withdrawal, continued on buspirone at this time, PT/OT/case management consulted for discharge planning with likely assisted facilityneeds. is present and is her healthcare power of assistant attorney general and requesting that she be placed at this time for her safety. Given patient is familiar with Dr. Luis who is per assisting in her tapering process, they are requesting TCU. #2. Recent presentation with oropharyngeal chronic dysphagia with suspected aspiration pneumonia: Recent presentation with aspiration pneumonia, speech therapy evaluation with clearance for regular diet/thin liquids with direct supervision one-to-one, will continue ST evaluation as well as aspiration precautions, will continue levaquin/flagyl oral regimen to completion. #3. Chronic Kidney Disease Stage II per GFR trending: Admission BUN/Cr 9/0.85, GFR 72, baseline renal function primarily 0.7-0.9 but is vacillated, repeat BMP in AM. #4. Anxiety and depression: Will continue only buspirone, continue reduced doseof doxepin as well as reduced dose of clonazepam with again at discharge continued aggressive closely monitored wean as this patient is unsafe for continued sedate of medications as she is frequently falling and may benefit from more aggressive alternate regimen as well as counseling. #5. Chronic back pain, debility with cervical stenosis, scoliosis of the spine:Status post surgical intervention of the spine, encourage offloading, positionalchanges, Tylenol as needed. #6. History of VTE: Patient with history of DVT, PE previously, had been felt provoked at that time secondary to immobility, previously had been on Eliquis, maintained on chemoprophylaxis with Lovenox. #7. Chronic normocytic anemia: Admission hemoglobin 10.9, MCV 95.5, baseline hemoglobin more recently 10-11 range, stable, continue to monitor. #8. Tobacco use: Encourage continued tobacco cessation. #9. GERD: Will continue patient on PPI. #10. DVT Prophylaxis: Lovenox cautiously given fall history. #11. CODE status: Patient SUNITA is her and living will is currently in place. Full Code status. Charges/Coding Visit Charges Inpatient E&M: 02962 Init Hosp L3 09/27/24 2951 <Electronically signed by Anastasia Khan MD> Cosigner Signature (if applicable): CC: Dr. Anastasia Khan MD; Dr. Harish Luis MD~ Signed [facility] Work Phone: Hospital Discharge instructions Additional Instructions I prescribed tramadol and prednisone which is a steroid to treat your chronic pain. You can continue taking Aleve. Please follow-up with your primary care doctor next week. [facility] Work Phone: Hospital Discharge instructionsAdditional Instructions ADDITIONAL DISCHARGE INFORMATION/INSTRUCTIONS: #1. Acute Encephalopathy (CONFUSION), suspected multifactorial, secondary to Acute Suspected Aspiration Pneumonia with known chronic oropharyngeal dysphagia in addition to Chronic sedation medication (Doxepin, Buspar, Clonazepam all concurrently) usage with persistent debility, mechanical falls: -- Maintain initially on IV Levaquin and IV Flagyl while inpatient given allergy history, transition to oral regimen for an additional 5-day duration at discharge. --CT head upon admission with no acute findings and repeat CT head at approximately 24 hours unremarkable. --ST evaluation with recommendation for regular diet/thin liquids with direct supervision one-to-one. --Encourage continued outpatient ST evaluation and ongoing evaluations with prescription given. --Given significant sedated regimen we recommend at this time decreasing doxepin to 150 mg nightly and further decreasing this slowly to avoid notable withdrawal symptoms in addition to transition of clonazepam from 1 mg p.o. 3 times daily to 0.5 mg twice daily and continue tapering down per PCP in addition. At this time we will continue currently prescribed buspirone regimen. Would benefit from alternate medication for insomnia consideration. [facility]: [facility]charge instructionsAdditional Instructions Carol discharge AGAINST MEDICAL ADVICE.[facility] Work Phone: Reason for referral (narrative)No reason for referral information availableWAshtabula [facility] Work Phone: Family History No Family History [...] Will Yes February 16 3:26pm Power of Associate Partner Yes February 17, 2020 3:26pm Advance Directive Response Recorded Date/ Time Advance Directives Yes January 21, 2015 4:23pm Living Will Yes February 16 2:26pm Power of Associate Partner Yes February 17, 2020 2:26pm Advance Directive Response Recorded Date/ Time Name of Medical Power of Associate Partner IRVING LOVER April 20, 2022 11:20am Advance Directives Yes January 21, 2015 5:23pm Living Will Yes April 20 11:20am Power of Associate Partner Yes April 20, 2022 11:20am Advance Directive Response Recorded Date/ Time Name of Medical Power of Associate Partner IRVING LOVER April 20, 2022 11:20am Name of Medical Power of Associate Partner July 29, 2022 7:49am Advance Directives Yes January 21, 2015 5:23pm Living Will Yes July 29, 2022 7 :49am Power of Associate Partner Yes July 29, 2022 7:49am Advance Directive Response Recorded Date/ Time Name of Medical Power of Associate Partner July 29, 2022 10:09am Name of Medical Power of Associate Partner Jose Lover October 13, 2022 10:25am Advance Directives Yes January 21, 2015 5:23pm Living Will Yes October 13, 2022 10:25am Power of Associate Partner Yes October 13 10:25am Advance Directive Response Recorded Date/ Time Name of Medical Power of Associate Partner July 29, 2022 10:09am Name of Medical Power of Associate Partner Jose Lover October 13, 2022 3:38pm Advance Directives Yes January 21, 2015 5:23pm Living Will Yes October 13, 2022 3:38pm Power of Associate Partner Yes October 13 3:38pm Advance Directive Response Recorded Date/ Time Name of Medical Power of Associate Partner July 29, 2022 10:09am Name of Medical Power of Associate Partner Jose Lover October 13, 2022 3:38pm Name of Medical Power of Associate Partner November 01, 2022 7:48am Advance Directives Yes January 21, 2015 5:23pm Living Will Yes [place] [address] 7:48am Power of Associate Partner Yes November 01 023 7:48am Advance Directive Response Recorded Date/ Time Name of Medical Power of Associate Partner Jose Lover October 13, 2022 3:38pm Name of Medical Power of Associate Partner November 01, 2022 7:48am Advance Directives Yes January 21, 2015 5:23pm Living Will No November 01 11:39am Power of Associate Partner No November 01 023 11:39am Advance Directive Response Recorded Date/ Time Advance Directives Yes January 21, 2015 4:23pm Living Will No March 17, 2 023 1:30pm Power of Associate Partner No March 17, 2023 1:30pm Advance Directive Response Recorded Date/ Time Advance Directives Yes January 21, 2015 5:23pm Living Will No March 17, 023 2:30pm Power of Associate Partner No March 17, 2023 2:30pm Advance Directive Response Recorded Date/ Time Advance Directives Yes January 21, 2015 5:23pm Living Will No July 24, 2023 8: 00pm Power of Associate Partner No July 24, 2023 8:00pm Advance Directive Response Recorded Date/ Time Advance Directives Yes January 21, 2015 5:23pm Living Will No July 30, 2023 1 :46pm Power of Associate Partner No July 30, 2023 1:46pm Advance Directive Response Recorded Date/ Time Living Will Yes June 04, 2024 3:44pm Do you have a Healthcare Pow er of Associate Partner? Yes June 04, 2024 3:44pm Name of Medical Power of Associate Partner Jose pantoja June 04, 2024 3:44pm Advance Directives Yes October 25 024 3:30pm Advance Directive Response Recorded Date/ Time Living Will Yes June 04, 2024 3:44pm Do you have a Healthcare Pow er of Associate Partner? Yes June 04, 2024 3:44pm Name of Medical Power of Associate Partner Jose pantoja June 04, 2024 3:44pm Do you have a Healthcare Pow er of Associate Partner? No August 27, 2024 3:36pm Advance Directives Yes October 25 024 3:30pm Advance Directive Response Recorded Date/ Time Living Will Yes June 04, 2024 3:44pm Do you have a Healthcare Pow er of Associate Partner? Yes June 04, 2024 3:44pm Name of Medical Power of Associate Partner Jose pantoja June 04, 2024 3:44pm Do you have a Healthcare Pow er of Associate Partner? Yes August 27, 2024 8:46pm Advance Directives Yes October 25 3:30pm Advance Directive Response Recorded Date/ Time Living Will Yes June 04, 2024 3:44pm Do you have a Healthcare Pow er of Associate Partner? Yes June 04, 2024 3:44pm Name of Medical Power of Associate Partner Jose pantoja June 04, 2024 3:44pm Do you have a Healthcare Pow er of Associate Partner? No September 21, 2024 6:07pm Do you have a Healthcare Pow er of Associate Partner? Yes August 27, 2024 8:46pm Advance Directives Yes October 25 3:30pm Advance Directive Response Recorded Date/ Time Living Will Yes June 04, 2024 3:44pm Do you have a Healthcare Pow er of Associate Partner? Yes June 04, 2024 3:44pm Name of Medical Power of Associate Partner Jose pantoja June 04, 2024 3:44pm Do you have a Healthcare Pow er of Associate Partner? No September 21, 2024 9:09pm Do you have a Healthcare Pow er of Associate Partner? Yes August 27, 2024 8:46pm Advance Directives Yes October 25 3:30pm Advance Directive Response Recorded Date/ Time Living Will Yes June 04, 2024 3:44pm Do you have a Healthcare Pow er of Associate Partner? Yes June 04, 2024 3:44pm Name of Medical Power of Associate Partner Jose pantoja June 04, 2024 3:44pm Do you have a Healthcare Pow er of Associate Partner? No September 21, 2024 9:09pm Do you have a Healthcare Pow er of Associate Partner? Yes August 27, 2024 8:46pm Do you have a Healthcare Pow er of Associate Partner? Yes September 27, 2024 12:33pm Advance Directives Yes October 25 3:30pm Advance Directive Response Recorded Date/ Time Living Will Yes June 04, 2024 3:44pm Do you have a Healthcare Pow er of Associate Partner? Yes June 04, 2024 3:44pm Name of Medical Power of Associate Partner Jose David- Tina band June 04, 2024 3:44pm Do you have a Healthcare Pow er of Associate Partner? No September 21, 2024 9:09pm Do you have a Healthcare Pow er of Associate Partner? Yes August 27, 2024 8:46pm Do you have a Healthcare Pow er of Associate Partner? No September 27, 2024 4:00pm Advance Directives Yes October 25 3:30pm Advance Directive Response Recorded Date/ Time Do you have a Healthcare Pow er of Associate Partner? No September 21, 2024 9:09pm Do you have a Healthcare Pow er of Associate Partner? Yes September 30, 2024 5:09pm Name of Medical Power of Associate Partner Irving David, September 30, 2024 5:09pm Do you have a Healthcare Pow er of Associate Partner? Yes August 27, 2024 8:46pm Do you have a Healthcare Pow er of Associate Partner? No September 27, 2024 4:00pm Advance Directives Yes October 25 3:30pm Chief [...] Frequent falls September 21, 2024 8:21p m Chief Complaint Admit Date FALL, R SHOULDER PAIN June 04, 2024 3 :08pm Unspecified injury of head, initial enco unter July 15, 2024 3:35pm CAP W/ENCEPHALOPATHY August 27, 2024 5:1 3pm CAP W/ENCEPHALOPATHY August 28, 2024 11: 13am CAP W/ENCEPHALOPATHY August 29, 2024 12: 50pm FREQUENT FALLS, CONFUSION & RECENT ASPIR ATION September 21, 2024 8:12pm FREQUENT FALLS, CONFUSION & RECENT ASPIR ATION September 22, 2024 7:27am Reason for Visit Admit Date Aspiration pneumonia August 27, 2024 5:1 3pm Encephalopathy due to infection August 5:13pm Ambulatory dysfunction September 21, 2024 8: 12pm Aspiration pneumonia September 21, 2024 8:12 pm Fever September 21, 2024 8:12p m Frequent falls September 21, 2024 8:12p m Generalized weakness September 21, 2024 8:12 pm Oropharyngeal dysphagia September 21, 2024 8 :12pm Toxic metabolic encephalopathy September 21, 2024 8:12pm Chief Complaint Admit Date FALL, R SHOULDER PAIN June 04, 2024 3 :08pm Unspecified injury of head, initial enco unter July 15, 2024 3:35pm CAP W/ENCEPHALOPATHY August 27, 2024 5:1 3pm CAP W/ENCEPHALOPATHY August 28, 2024 11: 13am CAP W/ENCEPHALOPATHY August 29, 2024 12: 50pm FREQUENT FALLS, CONFUSION & RECENT ASPIR ATION September 21, 2024 8:12pm FREQUENT FALLS, CONFUSION & RECENT ASPIR ATION September 22, 2024 7:27am Weakness September 27, 2024 2:47 pm ADULT FFT, RECURRENT SERIAL FALLS September 162024 2:48pm Reason for Visit Admit Date Aspiration pneumonia August 27, 2024 5:1 3pm Encephalopathy due to infection August 5:13pm Ambulatory dysfunction September 21, 2024 8: 12pm Aspiration pneumonia September 21, 2024 8:12 pm Fever September 21, 2024 8:12p m Frequent falls September 21, 2024 8:12p m Generalized weakness September 21, 2024 8:12 pm Oropharyngeal dysphagia September 21, 2024 8 :12pm Toxic metabolic encephalopathy September 21, 2024 8:12pm Adult failure to thrive September 27, 2024 2:48pm Falls frequently September 27, 2024 2:48 pm Weakness September 27, 2024 2:48 pm Chief Complaint Admit Date FALL, R SHOULDER PAIN June 04, 2024 3 :08pm Unspecified injury of head, initial enco unter July 15, 2024 3:35pm CAP W/ENCEPHALOPATHY August 27, 2024 5:1 3pm CAP W/ENCEPHALOPATHY August 28, 2024 11: 13am CAP W/ENCEPHALOPATHY August 29, 2024 12: 50pm FREQUENT FALLS, CONFUSION & RECENT ASPIR ATION September 21, 2024 8:12pm FREQUENT FALLS, CONFUSION & RECENT ASPIR ATION September 22, 2024 7:27am Weakness September 27, 2024 2:47 pm ADULT FFT, RECURRENT SERIAL FALLS September 162024 2:48pm ADULT FFT, RECURRENT SERIAL FALLS September 162024 7:10am ADULT FFT, RECURRENT SERIAL FALLS September 162024 8:57am Chief Complaint Admit Date Unspecified injury of head, initial enco unter July 15, 2024 3:35pm CAP W/ENCEPHALOPATHY August 27, 2024 5:1 3pm CAP W/ENCEPHALOPATHY August 28, 2024 11: 13am CAP W/ENCEPHALOPATHY August 29, 2024 12: 50pm FREQUENT FALLS, CONFUSION & RECENT ASPIR ATION September 21, 2024 8:12pm FREQUENT FALLS, CONFUSION & RECENT ASPIR ATION September 22, 2024 7:27am Weakness September 27, 2024 2:47 pm ADULT FFT, RECURRENT SERIAL FALLS September 162024 2:48pm ADULT FFT, RECURRENT SERIAL FALLS September 162024 7:10am ADULT FFT, RECURRENT SERIAL FALLS September 162024 8:57am FAILURE TO THRIVE AND FREQUENT FALLS Sep 3:45pm FAILURE TO THRIVE AND FREQUENT FALLS Sep 10:29am FAILURE TO THRIVE AND FREQUENT FALLS Sep 5:49pm Reason for Visit Admit Date Encephalopathy due to infection August 5:13pm Aspiration pneumonia August 27, 2024 5:1 3pm Frequent falls September 21, 2024 8:12p m Oropharyngeal dysphagia September 21, 2024 8 :12pm Ambulatory dysfunction September 21, 2024 8: 12pm Aspiration pneumonia September 21, 2024 8:12 pm Fever September 21, 2024 8:12p m Generalized weakness September 21, 2024 8:12 pm Toxic metabolic encephalopathy September 21, 2024 8:12pm Adult failure to thrive September 27, 2024 2:48pm Falls frequently September 27, 2024 2:48 pm Weakness September 27, 2024 2:48 pm Adult failure to thrive September 29, 2024 3:45pm Anxiety September 29, 2024 3:45 pm Dysphagia September 29, 2024 3:45 pm GERD (gastroesophageal reflux disease) J mary 2024 3:45pm Insomnia September 29, 2024 3:45 pm Multiple falls September 29, 2024 3:45 pm Weight loss September 29, 2024 3:45 pm Debility September 29, 2024 3:45 pm Summary Purpose Additional Source Comments Care Teams [...] Provide r Active Dr. Doni Hanson , Attending Provider, Other Provid er Active Team [...] Provider Active Start: August 29, 2024 Dr. Christoefr Espino DO Other Provider Active Start: August 29, 2024 Team Status: Active Member Role/Relationship Status Dates Dr. Harish Luis MD Primary Care Provider Active Start: September 21, 2024 Dr. Guilherme Collins MD Emergency Provider Active S tart: September 21, 2024 Dr. Ricardo Justice DO Admit Provider Active Start: September 21, 2024 Dr. Ricardo Justice DO Attending Provider Active Start: September 21, 2024 Team Status: Inactive Member Role/Relationship Status Dates Dr. Harish Luis MD Primary Care Provider Active Start: September 21, 2024 End: September 22, 2024 Dr. Guilherme Collins MD Emergency Provider Active S tart: September 21, 2024 End: September 22, 2024 Dr. Ricardo Justice DO Admit Provider Active Start: September 21, 2024 End: September 22, 2024 Dr. Ricardo Justice DO Other Provider Active Start: September 21, 2024 End: September 22, 2024 Dr. Anastasia Khan MD Attending Provider Active Start: September 21, 2024 End: September 22, 2024 Team Status: Active Member Role/Relationship Status Dates Dr. Harish Luis MD Primary Care Provider Active Start: September 22, 2024 Dr. Guilherme Collins MD Emergency Provider Active S tart: September 22, 2024 Dr. Ricardo Justice DO Admit Provider Active Start: September 22, 2024 Dr. Ricardo Justice DO Other Provider Active Start: September 22, 2024 Dr. Anastasia Khan MD Attending Provider Active Start: September 22, 2024 Dr. Anastasia Khan MD Other Provider Active St art: September 22, 2024 Team Status: Active Member Role/Relationship Status Dates Dr. Harish Luis MD Primary Care Provider Active Start: September 27, 2024 Dr. Dimitry Rosales DO Emergency Provider Active S tart: September 27, 2024 Dr. Anastasia Khan MD Attending Provider Active Start: September 27, 2024 Team Status: Active Member Role/Relationship Status Dates Dr. Harish Luis MD Primary Care Provider Active Start: September 27, 2024 Dr. Dimitry Rosales DO Emergency Provider Active S tart: September 27, 2024 Dr. Anastasia Khan MD Admit Provider Active St art: September 27, 2024 Dr. Anastasia Khan MD Attending Provider Active Start: September 27, 2024 Team Status: Inactive Member Role/Relationship Status Dates Dr. Harish Luis MD Primary Care Provider Active Start: September 27, 2024 End: September 29, 2024 Dr. Dimitry Rosales DO Emergency Provider Active S tart: September 27, 2024 End: September 29, 2024 Dr. Anastasia Khan MD Admit Provider Active St art: September 27, 2024 End: September 29, 2024 Dr. Anastasia Khan MD Other Provider Active St art: September 27, 2024 End: September 29, 2024 Dr. Ricardo Padilla MD Attending Provider Active Start: September 27, 2024 End: September 29, 2024 Team Status: Active Member Role/Relationship Status Dates Dr. Harish Luis MD Primary Care Provider Active Start: September 28, 2024 Dr. Dimitry Rosales DO Emergency Provider Active S tart: September 28, 2024 Dr. Anastasia Khan MD Admit Provider Active St art: September 28, 2024 Dr. Anastasia Khan MD Attending Provider Active Start: September 28, 2024 Dr. Anastasia Khan MD Other Provider Active St art: September 28, 2024 Team Status: Active Member Role/Relationship Status Dates Dr. Harish Luis MD Primary Care Provider Active Start: September 29, 2024 Dr. Dimitry Rosales DO Emergency Provider Active S tart: September 29, 2024 Dr. Anastasia Khan MD Admit Provider Active St art: September 29, 2024 Dr. Anastasia Khan MD Other Provider Active St art: September 29, 2024 Dr. Ricardo Padilla MD Attending Provider Active Start: September 29, 2024 Dr. Ricardo Padilla MD Other Provider Active Star t: September 29, 2024 Team Status: Inactive Member Role/Relationship Status [...] Provider Active Start: August 28, 2024 Dr. Chirstofer Espino DO Other Provider Active Start: August [...] Active Start: August 29, 2024 Team Status: Inactive Member Role/Relationship Status Dates Dr. Harish Luis MD Primary Care Provider Active Start: September 21, 2024 End: September 22, 2024 Dr. Guilherme Collins MD Emergency Provider Active S tart: September 21, 2024 End: September 22, 2024 Dr. Ricardo Justice DO Admit Provider Active Start: September 21, 2024 End: September 22, 2024 Dr. Ricardo Justice DO Other Provider Active Start: September 21, 2024 End: September 22, 2024 Dr. Anastasia Khan MD Attending Provider Active Start: September 21, 2024 End: September 22, 2024 Team Status: Active Member Role/Relationship Status Dates Dr. Harish Luis MD Primary Care Provider Active Start: September 22, 2024 Dr. Guilherme Collins MD Emergency Provider Active S tart: September 22, 2024 Dr. Ricardo Justice DO Admit Provider Active Start: September 22, 2024 Dr. Ricardo Justice DO Other Provider Active Start: September 22, 2024 Dr. Anastasia Khan MD Attending Provider Active Start: September 22, 2024 Dr. Anastasia Khan MD Other Provider Active St art: September 22, 2024 Team Status: Active Member Role/Relationship Status Dates Dr. Harish Luis MD Primary Care Provider Active Start: September 27, 2024 Dr. Dimitry Rosales DO Emergency Provider Active S tart: September 27, 2024 Dr. Anastasia Khan MD Attending Provider Active Start: September 27, 2024 Team Status: Inactive Member Role/Relationship Status Dates Dr. Harish Luis MD Primary Care Provider Active Start: September 27, 2024 End: September 29, 2024 Dr. Dimitry Rosales DO Emergency Provider Active S tart: September 27, 2024 End: September 29, 2024 Dr. Anastasia Khan MD Admit Provider Active St art: September 27, 2024 End: September 29, 2024 Dr. Anastasia Khan MD Other Provider Active St art: September 27, 2024 End: September 29, 2024 Dr. Ricardo Padilla MD Attending Provider Active Start: September 27, 2024 End: September 29, 2024 Team Status: Active Member Role/Relationship Status Dates Dr. Harish Luis MD Primary Care Provider Active Start: September 28, 2024 Dr. Dimitry Rosales DO Emergency Provider Active S tart: September 28, 2024 Dr. Anastasia Khan MD Admit Provider Active St art: September 28, 2024 Dr. Anastasia Khan MD Attending Provider Active Start: September 28, 2024 Dr. Anastasia Khan MD Other Provider Active St art: September 28, 2024 Team Status: Active Member Role/Relationship Status Dates Dr. Harish Luis MD Primary Care Provider Active Start: September 29, 2024 Dr. Dimitry Rosales DO Emergency Provider Active S tart: September 29, 2024 Dr. Anastasia Khan MD Admit Provider Active St art: September 29, 2024 Dr. Anastasia Khan MD Other Provider Active St art: September 29, 2024 Dr. Ricardo Padilla MD Attending Provider Active Start: September 29, 2024 Dr. Ricardo Padilla MD Other Provider Active Star t: September 29, 2024 Team Status: Inactive Member Role/Relationship Status Dates Dr. Harish Luis MD Primary Care Provider Active Start: September 29, 2024 End: October 03, 2024 Dr. Harish Luis MD Admit Provider Active Star t: September 29, 2024 End: October 03, 2024 Dr. Harish Luis MD Attending Provider Active Start: September 29, 2024 End: October 03, 2024 Dr. Harish Luis MD Referring Provider Active Start: September 29, 2024 End: October 03, 2024 Team Status: Active Member Role/Relationship Status Dates Dr. Harish Luis MD Primary Care Provider Active Start: October 01, 2024 Dr. Harish Luis MD Admit Provider Active Star t: October 01, 2024 Dr. Harish Luis MD Referring Provider Active Start: October 01, 2024 Dr. Harish Luis MD Other Provider Active Star t: October 01, 2024 CHILO Arroyo Attending Provider Active Start: October 01, 2024 Team Status: Active Member Role/Relationship Status Dates Dr. Harish Luis MD Primary Care Provider Active Start: October 02, 2024 Dr. Harish Luis MD Admit Provider Active Star t: October 02, 2024 Dr. Harish Luis MD Referring Provider Active Start: October 02, 2024 Dr. Harish Luis MD Other Provider Active Star t: October 02, 2024 Dr. Gurmeet Zarate DO Attending Provider Active Start: October 02, 2024 INFORMATION SOURCE (unrecogn ized section and content) DATE CREATED AUTHOR 12/22/2024 [facility] DATE CREATED AUTHOR AUTHOR'S ORGANIZ ATION 12/30/[address] [facility] FOR RECORDS PERTAINING TO PATIENTS WHO [...] BE BASED ON THE PRIMARY CLINICAL RECORDS. [facility] [email or web address] [facility]. provides no warranty or guarantee of the accuracy or completeness of information in this document.
--- NOTE | 2025-01-02 19:45 | CT_ITS ---
PROCEDURE: BRAIN/HEAD WITHOUT CONTRAST 01/02/2025 REASON FOR EXAM: ACUTE GLOBAL HEADACHE TECHNIQUE: Procedure Code: CTBR Modality: CT Procedure: BRAIN/HEAD WITHOUT CONTRAST Coronal and Sagittal reconstruction series were provided. One or more dose reduction techniques were used (e.g., Automated exposure control, adjustment of the mA and/or kV according to patient size, use of iterative reconstruction technique. COMPARISON: CT head 09/27/2024 FINDINGS: There is no extra-axial or intra-axial intracranial hemorrhage. No mass effect or midline shift is seen. Generalized intracranial volume loss and findings compatible with chronic microvascular white matter ischemia. There is normal moy-white matter differentiation. The posterior fossa is grossly unremarkable. The skull is unremarkable. Visualized paranasal sinuses are clear. The mastoid air cells show normal translucency. CT/Brain/Head without Contrast IMPRESSION: 1. No intracranial hemorrhage. No mass effect or midline shift. 2. Chronic involutional and ischemic gliotic white matter changes. Reading Location: [id number]
[2025-01-02 20:00] VITALS: BP 126/89; PULSE 74; O2SAT 95
[2025-01-02 20:15] LABS: Hematocrit 39.9 % (37-47); Hemoglobin 13.0 g/dL (12.0-15.0); Immature Granulocytes Count 0.020 X10^3/uL (0.0-0.0); Mean Corp Hgb Conc 32.6 g/dL (32-36); Mean Corpuscular Volume 92.4 fL (81-99); Mean Platelet Vol. 9.9 fl (6.2-12.0); NRBC Flagged by Analyzer 0 % (0-5); Platelet Count 533 K/mm3 (150-450); RBC Distribution Width CV 14.7 % (11.6-14.6); RBC Distribution Width SD 50.2 fl (35.1-43.9); Red Blood Count 4.32 M/mm3 (4.2-5.4); White Blood Count 5.6 K/mm3 (4.4-11.0)
[2025-01-02 20:38] VITALS: BP 126/89; PULSE 77; RESP 16; TEMP 37.1; O2SAT 95
--- NOTE | 2025-01-02 21:09 | EDS_ITS ---
HPI History of Present Illness Chief Complaint: Headache Detail of Chief Complaint: Abrupt headache that started 4 days ago Informant: patient Onset/Context/Timing Onset: Days Context: Sudden Timing: Continuous Quality -Headache: Positive for Similar Prior Headaches Location: Bilateral Current Severity: Moderate Maximum Severity: Severe Worsened by: Sound and light Relieved by: Nothing Associated Symptoms/Injury Associated Symptoms: Positive for Nausea and Photophobia; Negative for Fever, Vomiting, Sore Throat, Sinus Pressure, Numbness, Tingling, Preceding Aura, Visual Changes, Blurred Vision or Visual Loss Injury - OCHOA: Negative for Direct Trauma Narrative Narrative: Patient is a 74-year-old woman. She has history of migraines. Has not had a headache in several years. She presents with abrupt onset of bilateral headache with nausea photophobia and sonophobia. She denies fever, chills night sweats. No trouble speech or swallowing. She denies cardiac or respiratory symptoms. She denies vomiting. She denies any urologic symptoms. Prior similar symptoms: No Recent Illness/Hospitalization: No PFSH PFSH Medical History Dysphagia Oropharyngeal dysphagia Frequent falls Anxiety and depression Fracture of humeral head Falls Pulmonary emboli Hypoxia Closed head injury Vitamin D deficiency Irritable bowel syndrome without diarrhea Stenosis, cervical spine Chronic cough Allergic rhinitis Insomnia HLD (hyperlipidemia) Movement disorder Gastroparesis Pain from implanted hardware Wears hearing aid Wears dentures Wears glasses Post-menopausal Uses wheelchair Walker as ambulation aid Ambulates with cane Arthritis High cholesterol Back pain Migraine headache Gastric reflux Former smoker Shortness of breath on exertion History of stress test Hypertension COVID-19 Scoliosis of lumbar spine Segmental and somatic dysfunction of pelvic region Segmental dysfunction of thoracic region Segmental and somatic dysfunction of lumbar region Carpal tunnel syndrome on both sides Chronic lower back pain Home Medications ?Medication ?Instructions ?Recorded ?Last Taken ?Type doxepin 150 mg capsule 150 mg PO QHS ANXIETY 30 da ys #30 09/22/24 09/28/24 21:25 Rx caps omeprazole 40 mg capsule,delayed 40 mg PO DAILY GERD 3 0 days #30 09/22/24 09/29/24 08:10 Rx release caps lidocaine 5 % topical patch 1 patch topical 2200 Pain #0 ea 09/29/24 09/28/24 21:10 Rx melatonin 3 mg tablet 3 mg PO QHS PRN PRN Insomnia #0 09/29/24 Unknown Rx tabs sennosides 8.6 mg-docusate sodium 2 tab PO BID PRN PRN Constipation 09/29/24 Unknown Rx 50 mg tablet (Stimulant Laxative #0 tabs Plus) clorazepate dipotassium 3.75 mg 3.75 mg PO TID PRN anx iety 7 days 01/02/25 Unknown Rx tablet #20 tabs Allergy/AdvReac Type Severity Reaction Status Date / Time Penicillins Allergy Rash Verified 01/02/25 16:13 Family History Mother Hypertension CVA (cerebral vascular accident) Heart disease Cerebral hemorrhage Father Cancer Hx stomach cancer and leukemia. Surgical History History of cardiac catheterization Hx of dilation and curettage History of 2 sections Hx of surgical procedure History of lumbar laminectomy Social History household members: spouse housing: house number of children: 2 Smoking Status: Current some day smoker tobacco type: e-cigarettes alcohol intake: never substance use type: does not use what type of physical activity do you participate in: none additional social history: Currently ambulating with a cane [facility] ED Constitutional Constitutional ED: Denies chills, fever(s), subjective or sweats Eyes Eyes: Denies blurry vision, change in vision or diplopia ENT ENT ED: Denies ear pain or rhinorrhea Cardiovascular Cardiovascular: Denies chest pain, palpitations or racing heartbeat Respiratory/Chest Respiratory/Chest: Denies cough, dyspnea or dyspnea on exertion Gastrointestinal Gastrointestinal: Reports nausea; Denies abdominal pain, diarrhea or vomiting Musculoskeletal Musculoskeletal: Denies arthralgias, back pain, myalgias or neck pain Integumentary Denies rash Neurologic Neurologic: Reports headache(s); Denies paresthesias or weakness Psychiatric Psychiatric: Reports anxiety Endocrine Endocrinology: Denies polydipsia, polyphagia or polyuria Hematologic/Lymphatic Hematologic/Lymphatic: Denies easy bleeding or easy bruising EXAM Physical Exam Const Vital Signs: 01/02/25 16:11 01/02/25 18:11 01/02/25 20:00 Temperature 98.8 F Temperature Source Oral Pulse Rate 91 78 74 Respiratory Rate 18 15 Blood Pressure 136/88 H 138/96 H 126/89 H Blood Pressure Mean 104 110 101 Pulse Ox 98 96 95 Oxygen Delivery Method Room Air Room Air Room Air 01/02/25 20:38 Temperature 98.8 F Temperature Source Pulse Rate 77 Respiratory Rate 16 Blood Pressure 126/89 H Blood Pressure Mean 101 Pulse Ox 95 Oxygen Delivery Method Positive well nourished Constitutional Narrative: Affect is flat. General Appearance ED: NAD; Negative for pallor HEENT Reports normocephalic, TM's clear and moist mucous membranes atraumatic; Negative for tenderness, temporal artery tenderness or vesicular rash Face and Sinus: Negative for sinus tenderness Tympanic Membrane ED: Yes TM's clear Eyes PERRL and EOMs intact bilaterally Eyes Narrative: There is no nystagmus. General Eye ED: Negative for pale conjunctiva or scleral icterus Neck no lymphadenopathy, supple, no meningeal signs and no JVD Resp normal respiratory effort and clear to auscultation bilaterally Cardio regular rate, regular rhythm, S1 normal heart sound, S2 normal heart sound and no murmurs Extremity normal to inspection, full ROM and normal capillary refill General Extremety ED: Negative for edema General Extremity: Negative for edema Neuro oriented x3, CN's II-XII intact bilaterally and no sensory deficits noted Neuro Narrative: There is no clonus Babinski sign noted right or left. There is no dysmetria. Haleigh Coma Scale: document GCS findings Spontaneous Obeys Commands Oriented 15 Coordination / Balance: [id number] test normal Speech: speech normal Psych Mood & Affect: depressed and anxious Skin General Skin Exam: Negative for jaundice or pallor Lesions: no lesions Rashes: no rashes MDM MDM MDM Narrative Medical decision making narrative: Differential diagnosis tension headache, vascular headache, subarachnoid hemorrhage, unlikely giant cell arteritis. Because she has not had a headache in years we will obtain CT to assess for subarachnoid hemorrhage. White count was obtained to assess for possibility of infection and to assess platelet count. ESR has possibility of vasculitis needs to be entertained. Lab Data Attestation: I reviewed the patient's lab results. Lab results narrative: CBC is unremarkable. ESR slightly elevated. It is unremarkable once corrected for age. Labs: Laboratory Results - last 24 hr 01/02/25 18:18 WBC 5.6 RBC 4.32 Hgb 13.0 Hct 39.9 MCV 92.4 MCH 30.1 MCHC 32.6 RDW Std Deviation 50.2 H RDW Coeff of Mehnaz 14.7 H Plt Count 533 H MPV 9.9 Immature Gran % (Auto) 0.400 Neut % (Auto) 47.3 Lymph % (Auto) 38.8 [place] % (Auto) 10.6 H Eos % (Auto) 1.6 Baso % (Auto) 1.3 H Absolute Neuts (auto) 2.7 Absolute Lymphs (auto) 2.17 Nucleated RBC % 0 ESR 42 H Radiography Diagnostic Testing: Clinical Impression(s) from Imaging Studies Brain CT 01/02/25 19:45 IMPRESSION: 1. No intracranial hemorrhage. No mass effect or midline shift. 2. Chronic involutional and ischemic gliotic white matter changes. Reading Location: [facility] CT report was reviewed. Agree there is no acute ischemic changes. Treatment and Re-Evaluation Narrative: Patient was reassessed at 2105. Patient's headache has improved markedly. Will discharge to home. She asked if she could have medicine for anxiety. She states she does not have an appointment [facility] until March. Discharge Plan Triage Chief Complaint: Headache ED Provider: Huber Ballard Dx/Rx/DC Orders Clinical Impression: Intractable migraine without aura, Anxiety Instructions: ED Anxiety Reaction, ED, Migraine (Classical) Prescriptions: New clorazepate dipotassium 3.75 mg tablet 3.75 mg PO TID PRN (Reason: anxiety) 7 Days Qty: 20 0RF No Action omeprazole 40 mg capsule,delayed release(DR/EC) 40 mg PO DAILY 30 Days Qty: 30 0RF Patient Comments: pt states she take the med once a day but not every day doxepin 150 mg capsule 150 mg PO QHS 30 Days Qty: 30 0RF Rx Instructions: Given notable encephalopathy, recurrent aspiration issues, decrease to 150 mg q HS and with PCP direction taper dose over the next several weeks. lidocaine 5 % Adhesive Patch,Medicated 1 patch topical 2199 Qty: 0 0RF Protocol: *Topical Application Instructions APPLICATION INSTRUCTIONS: back melatonin 3 mg Tablet 3 mg PO QHS PRN PRN (Reason: Insomnia) Qty: 0 0RF sennosides-docusate sodium [Stimulant Laxative Plus] 8.6-50 mg Tablet 2 tab PO BID PRN PRN (Reason: Constipation) Qty: 0 0RF Primary Care Provider: Care Physician,No Primary Referrals: Mona Sow MD [Med Staff - Senior Climate Advisor, Internal Medicine] - 1-2 Weeks Care Physician,No Primary [Primary Care Provider, Medical] Activity Restrictions/Additional Instructions: When you call Dr. Sow' office let them know that you were seen in the ER and need an ER follow-up visit Print Language: Greenlandic Disposition Disposition: Home, Self Care
--- NOTE | 2025-01-02 21:24 | CM.ED ---
Social Work Reason for visit: No PCP Patient states she is currently inbetween doctors and cannot get into her new one until March. SW offered to leave [facility] provider list for additional resources, patient accepted brochure. No further needs at this time. Zhanna Davis, OIL DELIVERER, TRUCK JUMPER
--- NOTE | 2025-01-03 15:39 | ED.RN ---
[facility] called regarding new Rx for anxiety, concerned as pt already has a Rx for anxiety. Pt is insistent to pharmacy that she wants new Rx. Pharmacy state they will educate pt she can only take one anxiety med, either previous med or new med.
== END 2025-01-02 21:28 | disposition home or self-care (01) ==
PROVIDERS: Emergency Provider Emergency Medicine; Visit Provider Emergency Medicine
DX: G43.019 Migraine without aura, intractable, without status migrainosus (principal); F41.9 Anxiety disorder, unspecified; K21.9 Gastro-esophageal reflux disease without esophagitis; K58.9 Irritable bowel syndrome, unspecified; F32.A Depression, unspecified; M54.50 Low back pain, unspecified; G89.29 Other chronic pain; F17.290 Nicotine dependence, other tobacco product, uncomplicated; Z86.711 Personal history of pulmonary embolism; Z79.899 Other long term (current) drug therapy
CPT/HCPCS: 70450; 85025; 85652; 96374; 96375; 96376; 99282; A4216

== ENCOUNTER 2025-01-10 15:36 | Emergency (ER) | payer MEDICARE, SELFPAY ==
[2025-01-10 15:36] VITALS: BP 186/109; PULSE 76; RESP 16; TEMP 36.7; O2SAT 97; BMI 19.1
--- NOTE | 2025-01-10 15:57 | EKG12_ITS ---
Test Reason : MEDICAL CLEARANCE Blood Pressure : */* mmHG Vent. Rate : 69 BPM Atrial Rate : 69 BPM P-R Int : 140 ms QRS Dur : 70 ms QT Int : 400 ms P-R-T Axes : 67 32 66 degrees QTcB Int : 428 ms Normal sinus rhythm Normal ECG Confirmed by DEB FRANKLIN ([id number]), photographic editor GEGE COSTELLO ([id number]) on 01/12/2025 7:00:07 AM Referred By: Confirmed By: DEB FRANKLIN
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
[2025-01-10 16:11] LABS: Hematocrit 37.6 % (37-47); Hemoglobin 12.0 g/dL (12.0-15.0); Immature Granulocytes Count 0.010 X10^3/uL (0.0-0.0); Mean Corp Hgb Conc 31.9 g/dL (32-36); Mean Corpuscular Volume 93.5 fL (81-99); Mean Platelet Vol. 9.9 fl (6.2-12.0); NRBC Flagged by Analyzer 0 % (0-5); Platelet Count 411 K/mm3 (150-450); RBC Distribution Width CV 14.6 % (11.6-14.6); RBC Distribution Width SD 50.6 fl (35.1-43.9); Red Blood Count 4.02 M/mm3 (4.2-5.4); White Blood Count 5.9 K/mm3 (4.4-11.0)
--- NOTE | 2025-01-10 16:18 | CT_ITS ---
PROCEDURE: BRAIN/HEAD WITHOUT CONTRAST 01/10/2025 REASON FOR EXAM: CHANGE IN MENTAL STATUS TECHNIQUE: Procedure Code: CTBR Modality: CT Procedure: BRAIN/HEAD WITHOUT CONTRAST Coronal and Sagittal reconstruction series were provided. One or more dose reduction techniques were used (e.g., Automated exposure control, adjustment of the mA and/or kV according to patient size, use of iterative reconstruction technique. RADIATION DOSE SUMMARY: DLP: 796 mGycm COMPARISON: 01/02/2025 FINDINGS: There is no acute infarct, intracranial hemorrhage, or mass effect. There is no hydrocephalus or significant midline shift. There is mild chronic microvascular ischemic changes and moderate parenchymal volume loss. No acute, depressed calvarial fractures. No large scalp hematomas. The paranasal sinuses are clear. CT/Brain/Head without Contrast IMPRESSION: No acute intracranial process. Reading Location: [id number]
[2025-01-10 16:19] LABS: Mucous, Urine 0 SEEN /hpf (<or=2+)
[2025-01-10 16:32] LABS: Color, Urine Yellow (Yellow); Glucose, Dipstick Normal (Normal); Ketone-Dipstick Negative (Negative); Leukocyte Esterase-Dipstick 500 /ul (Negative); Nitrite-Dipstick Negative (Negative); Occult Blood-Urine 50 /ul (Negative); Protein-Dipstick 30 mg/dl (Negative); Specific Gravity, Urine 1.015 (1.002-1.030); Urine Bilirubin Dipstick Negative (Negative)
[2025-01-10 16:36] VITALS: PULSE 68; RESP 17; O2SAT 100
[2025-01-10 16:47] LABS: Barbiturate Urine NEGATIVE (< 200 ng/mL); Benzodiazepine Urine PRESUMPTIVE POSITIVE (< 200 ng/mL); PCP Urine NEGATIVE (< 25 ng/mL); Red Blood Cells-Urine 5-10 SEEN /hpf (0-5); THC Urine NEGATIVE (< 50 ng/mL); Transitional Epithelial - Ur 0-5 SEEN /hpf (0-5)
[2025-01-10 16:48] LABS: Squamous Epithelial Cells - UA 0-5 SEEN /hpf (5-10)
[2025-01-10 16:49] LABS: Yeast-Urine 2+ /hpf (None Seen)
[2025-01-10 16:53] LABS: AST(SGOT) 20 U/L (<=31); Alanine Aminotransfer ALT/SGPT 10 U/L (<=34); Albumin, Serum 3.5 g/dL (3.4-4.8); Alkaline Phosphatase 102 U/L (35-104); Anion Gap 11 (5-15); BUN 6 mg/dL (4-19); BUN/Creat Ratio 6.7 RATIO (10-20); Calcium,Total 9.1 mg/dL (7.6-11.0); Carbon Dioxide 22.2 mmol/L (21.0-32.0); Chloride 108 mmol/L (98-108); Estimated Creatinine Clearance 41.03 ml/min (50-250); Globulin 3.0 g/dL (2.2-4.2); Glucose 103 mg/dL (70-99); Potassium 3.6 mmol/L (3.3-5.1)
[2025-01-10 17:07] LABS: Alcohol, Blood (Medical)-Serum < 10.1 mg/dL (<=10.0)
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
[2025-01-10 20:37] VITALS: BP 154/104; PULSE 78; RESP 16; TEMP 36.6; O2SAT 99
--- NOTE | 2025-01-11 16:06 | CM.ED ---
Social Work Per safety plan protocol for 24 hour phone contact following safety plan to home: Cnc Lathe Programmer made phone contact with patient's who stated patient is sleeping. Cnc Lathe Programmer to call back later in the afternoon. (16:06). Cnc Lathe Programmer made successful phone contact with patient who stated she is feeling fine and denied any suicidal ideation. Patient stated she's been resting and watching TV. Cnc Lathe Programmer reviewed safety plan with patient and asked patient to call 911 should patient ever have thoughts of wanting to harm herself in any way which patient agreed to do. Patient denied any other needs/concerns at this time. Gladys Pittman, SATELLITE TECHNICIAN, SILK TRIMMER
== END 2025-01-10 21:13 | disposition home or self-care (01) ==
PROVIDERS: Emergency Provider Emergency Medicine; Visit Provider Emergency Medicine
DX: R45.851 Suicidal ideations (principal); N39.0 Urinary tract infection, site not specified; E78.00 Pure hypercholesterolemia, unspecified; F43.0 Acute stress reaction; I10 Essential (primary) hypertension; K21.9 Gastro-esophageal reflux disease without esophagitis; Z79.899 Other long term (current) drug therapy; F41.8 Other specified anxiety disorders; F17.290 Nicotine dependence, other tobacco product, uncomplicated
CPT/HCPCS: 70450; 80053; 80307; 81001; 82077; 84443; 85025; 87086; 87088; 93005; 99285

== ENCOUNTER → 2025-02-10 | Outpatient (CLI) | payer MEDICARE, SELFPAY ==
[2025-02-10 16:42] LABS: Hematocrit 35.7 % (37-47); Hemoglobin 11.7 g/dL (12.0-15.0); Immature Granulocytes Count 0.010 X10^3/uL (0.0-0.0); Mean Corp Hgb Conc 32.8 g/dL (32-36); Mean Corpuscular Volume 93.0 fL (81-99); Mean Platelet Vol. 10.3 fl (6.2-12.0); NRBC Flagged by Analyzer 0 % (0-5); Platelet Count 404 K/mm3 (150-450); RBC Distribution Width CV 15.0 % (11.6-14.6); RBC Distribution Width SD 51.7 fl (35.1-43.9); Red Blood Count 3.84 M/mm3 (4.2-5.4); White Blood Count 4.3 K/mm3 (4.4-11.0)
[2025-02-10 18:03] LABS: AST(SGOT) 19 U/L (<=31); Alanine Aminotransfer ALT/SGPT 9 U/L (<=34); Albumin, Serum 3.5 g/dL (3.4-4.8); Alkaline Phosphatase 112 U/L (35-104); Anion Gap 11 (5-15); BUN 8 mg/dL (4-19); BUN/Creat Ratio 10.3 RATIO (10-20); Calcium,Total 9.1 mg/dL (7.6-11.0); Carbon Dioxide 25.6 mmol/L (21.0-32.0); Chloride 106 mmol/L (98-108); Cholesterol 272 mg/dL (<=200); Globulin 2.9 g/dL (2.2-4.2); Glucose 140 mg/dL (70-99); Low Density Lipoprotein Calc. 180 mg/dL; Potassium 4.1 mmol/L (3.3-5.1); Triglycerides 102 mg/dL; Very Low Density Lipoprotein 20 mg/dL (5-40); cholesterol:hdl ratio screen 3.67
--- OUTSIDE RECORDS SUMMARY | 2025-02-10 19:11 | XMS RPT_ITS | CCD ---
Author Organization [facility] CliniSyal Care Team Providers Care Ammunition Specialist Name Role Phone Dr. Harish Luis Chi Primary Care Provider Dr. Jose Renee Attending Provider Dr. Demond Manley Referring Provider [phone] Dr. Harish Luis Chi Primary Care Provider Dr. Dimitry Rosales Emergency Provider Dr. Rafita Siddiqui Admit Provider Dr. Rafita Siddiqui Attending Provider Dr. Rafita Siddiqui Other Provider Dr. Doni Hanson Attending Provider Dr. Doni Hasnon Other Provider Dr. Doni Hanson Referring Provider [...] Care Provider Dr. Armando Miranda Emergency Provider [phone] Helena Ann Admit Provider Dr. Helena Ann Attending Provider Dr. Helena Ann Other Provider Dr. Jesse Camejo Attending Provider Dr. Jesse Camejo Other Provider Dr. Jesse Camejo Referring Provider Tessa, Dr. Levi Attending Provider Dr. Rivka Lombardi Attending Provider Toby GUIDO, Dr. Harish Flores Primary Care Provider [phone] Toby GUDIO, Dr. Harish Flores Attending Provider Toby GUIDO, Dr. Harish Flores Referring Provider Dr. Irving White DO Emergency Provider Toby GUIDO, Dr. Harish Florse Primary Care Provider [phone] Dr. Irving [...] Erin GUIDO, Dr. Anastasia Nair Other Provider Ungaidee DO, Dr. Moraes Emergency Provider Erin GUIDO, Dr. Anastasia Nair Admit Provider Valerie GUIDO, Dr. Silva Attending Provider Gemma Padilla MD, Dr. Silva Other Provider Unavailable Toby GUIDO, Dr. Harish Flores Primary Care Provider Toby GUIDO, Dr. Harish Flores Attending Provider Toby GUIDO, Dr. Harish Flores Referring Provider Elio GUIDO, Dr. Ngo Emergency Provider Kenzie PLEITEZ, Dr. Beaulieu Admit Provider [phone] Kenzie PLEITEZ, Dr. Beaulieu Attending Provider Kenzie PLEITEZ, Dr. Beaulieu Other Provider [phone] Dennis GUIDO, Dr. Vanegas Emergency Provider [phone] de Addi PLEITEZ, Dr. Silva Admit Provider Unavail able Justice DO, Dr. Silva Other Provider Unavail able Erin GUIDO, Dr. Anastasia Nair Attending Provider Erin GUIDO, Dr. Anastasia Nair Other Provider Bobby PLEITEZ, Dr. Moraes Emergency Provider [phone] Erin GUIDO, Dr. Anastasia Nair Admit Provider Valerie GUIDO, Dr. Silva Attending Provider Gemma Padilla MD, Dr. Silva Other Provider Unavailable Toby GUIDO, Dr. Harish Flores Admit Provider Toby GUIDO, Dr. Harish Flores Other Provider Héctor SIMMONS-Gladys Mcdermott Attending Provider Tessa PLEITEZ, Dr. Levi Attending Provider SHERMAN PASTRANA Attending Unavailable TALAMPIDALMIS, ALESHA Mat Primary Care Unavailable PASTRANASHERMAN Referring Unavailable TALAMPAS, ALESHA D Primary Care Unavailable NICHOL CASAREZ Attending Unavailable SHERMAN PASTRANA Attending Unavailable TALAMPIDALMIS, ALESHA D Primary Care Unavailable Toby GUIDO, Dr. Harish Flores Primary Care Physician [phone] Dennis GUIDO, Dr. Vanegas Emergency Department Physici an de Addi PLEITEZ, Dr. Silva Admitting Physician Helena vailable BoltonAddi DO, Dr. Silva Nurse Practitioner Unav ailable Erin GUIDO, Dr. Anastasia Nair Attending Physician Erin GUIDO, Dr. Anastasia Nair Nurse Practitioner Bobby PLEITEZ, Dr. Moraes Emergency Department Physici an Erin GUIDO, Dr. Anastasia Nair Admitting Physician Valerie GUIDO, Dr. Silva Attending Physician Unavail able Valerie GUIDO, Dr. Silva Nurse Practitioner Unavaila ble Toby GUIDO, Dr. Harish Flores Admitting Physician Toby GUIDO, Dr. Harish Flores Attending Physician [phone] Toby GUIDO, Dr. Harish Flores Referring Provider Toby GUIDO, Dr. Harish Flores Nurse Practitioner Gladys Suarez Attending Physician Tessa PLEITEZ, Dr. Levi Attending Physician Elio GUIDO, Dr. Ngo Attending Physician Elio GUIDO, Dr. Ngo Emergency Department Physician Care Physician, No Primary Primary Care Physicia n Unavailable Gilberto GUIDO, Dr. Mcnair Emergency Department Phys ician Anastasia Khan Admitting Unavailable Anastasia Khan Consulting Unavailable Ricardo Padilla Attending Unavailable Toby, Harish Chi Primary Care Unavailable Toby, Harish Chi Primary Care Unavailable Toby, Harish Chi Admitting Unavailable Toby, Harish Chi Attending Unavailable Toby, Harish Chi Referring Unavailable Toby, Harish Chi Primary Care Unavailable Christofer Espino Attending Unavailable Christofer Espino Consulting Unavailable Christofer Espino Admitting Unavailable Anastasia Khan Attending Unavailable Toby, Harish Chi Primary Care Unavailable Ricardo Justice Consulting Unavailable Ricardo Justice Admitting Unavailable Toby, Harish Chi Primary Care Unavailable Christofer Espino Attending Unavailable Christofer Espino Admitting Unavailable Gurmeet Zarate Attending Unavailable Toby, Harish Chi Primary Care Unavailable Toby, Harish Chi Attending Unavailable Toby, Harish Chi Primary Care Unavailable Toby, Harish Chi Referring Unavailable Intercourse, Irving Attending Unavailable Toby, Harish Chi Primary Care Unavailable Ricardo Justice Admitting Unavailable Toby, Harish Chi Primary Care Unavailable Ricardo Justice Attending Unavailable Ricardo Justice Consulting Unavailable Care Physician, No Primary Primary Care Unava ilable Xu Macias Attending Unavailable Care Physician, No Primary Primary Care Unava ilable Ballard, Huber Attending Unavailable White, Anastasia L Attending Unavailable White, Anastasia L Consulting Unavailable White, Anastasia L Attending Unavailable Toby, Harish Chi Primary Care Unavailable White, Anastasia L Admitting Unavailable White, Anastasia L Attending Unavailable White, Anastasia L Consulting Unavailable Toby, Harish Chi Primary Care Unavailable Ricardo Padilla Attending Unavailable Ricardo Padilla Consulting Unavailable Gladys Anaya Attending Unavailable Toby, Harish Chi Primary Care Unavailable Toby, Harish Chi Admitting Unavailable Toby, Harish Chi Consulting Unavailable Toby, Harish Chi Referring Unavailable Gurmeet Zarate Attending Unavailable Toby, Harish Chi Primary Care Unavailable Toby, Harish Chi Attending Unavailable Toby, Harish Chi Attending Unavailable Toby, Harish Chi Primary Care Unavailable Toby, Harish Chi Referring Unavailable Allergies Allergy Classification Reported Allergen(s) Allergy Type Date of Onset Reaction(s) Facility (20 sources) Penicillins; Translations: [PENICILLINS] Allergy to substance 0 [facility] (13 sources) HYDROcodone Drug Allergy 3 [facility] (1 source) Acetaminophen / HYDROcodone; Translations: [HYDROCODONE-ACET AMINOPHEN] Drug Allergy 5 [facility] Repository Medications Current Medications Medication Drug Class(es) Dates Sig (Normalized) Sig (Original) Alum-Mag Hydroxide-Simeth (Mag-Al Plus Extra Strength) 400-400-40 mg/5 mL Suspension (1 source) Start: 09-29-2024 take 1 mL by mouth every six hours as needed Alum-Mag Hydroxide-Simeth (Mag-Al Plus Extra Strength) 400-400-40 mg/5 mL Suspension Active 30 mL PO EVERY 6 HOURS NEEDED as needed for Gastric Burning 0 0 September 29, 2024 12:00am busPIRone hydrochloride 7.5 mg oral tablet (20 sources) Start: 01-10-2025 Start: 02-17-2020 End: 07-18-2025 celecoxib 200 mg oral capsule (1 source) Nonsteroidal Anti-inflammatory Drug Start: 01-10-2025 Start: 01-10-2025 clonazePAM 0.5 mg oral table t (20 sources) Benzodiazepine Start: 01-10-2025 Start: 02-17-2020 End: 10-03-2024 Start: 02-17-2020 End: 09-22-2024 take 1 tablet by mouth three times daily Clonazepam 1 MG tablet Discontinued 1 mg PO THREE TIMES A DAY February 17, 2020 1:00am September 22, 2024 5:31pm ANXIETY clorazepate dipotassium 3.75 mg oral tablet (1 source) Benzodiazepine Start: 01-02-2025 cyclobenzaprine hydrochloride 10 mg oral tablet (5 sources) Muscle Relaxant Start: 02-19-2020 take 10 mg by mouth three times daily as needed Cyclobenzaprine Active 10 MG PO 3 TIMES DAILY NEEDED February 19, 2020 8:33am Do not take if patient feels dizzy or lightheaded docusate sodium 50 mg / sennosides, senior care 8.6 mg oral tablet (20 sources) Start: 09-29-2024 Start: 09-29-2024 Sennosides-Doc usate Sodium (Stimulant Laxative Plus) 8.6-50 mg Tablet Active 2 {tbl} PO TWICE DAILY NEEDED as needed for Constipation 0 September 29, 2024 12:00am Start: 10-14-2022 End: 07-30-2023 Start: 10-14-2022 End: 07-30-2023 Sennosides-Docusate Sodium ( Stool Softener-Stimulant Laxat) 8.6-50 mg Tablet Discontinued 2 {tbl} PO TWICE A DAY 0 30 0 October 14, 2022 12:00am July 30, 2023 4:02pm Take as scheduled for 3 days and then as needed for constipation Available [id number]. doxepin hydrochloride 75 mg oral capsule (20 sources) Tricyclic Antidepressant Start: 01-10-2025 Start: 09-22-2024 take 1 capsule by [facility] once at bedtime Doxepin 150 mg capsule Active 150 mg PO AT BEDTIME 30 30 0 September 22, 2024 5:31pm ANXIETY Given notable encephalopathy, recurrent aspiration issues, decrease to 150 mg q HS and with PCP direction taper dose over the next several weeks. Start: 07-30-2023 End: 01-10-2025 Start: 07-30-2023 End: 09-22-2024 take 2 capsules by mouth at bedtime Doxepin 150 mg capsule Discontinued 300 mg PO AT BEDTIME July 30, 2023 12:00am September 22, 2024 5:31pm ANXIETY Start: 07-30-2023 take [address] [facility] at bedtime Doxepin 150 mg capsule Active [...] 2020 12:00am lidocaine 0.05 mg/mg medicated patch (3 sources) Antiarrhythmi c, Amide Local Anesthetic Start: 09-29-2024 Start: 09-29-2024 Lidocaine 5 % Adhesive Patch,Medicated Active 1 NMA TOPICAL 2200 0 0 September 29, 2024 12:00am Please contact the information source for Protocol details. melatonin 3 mg oral tablet (3 sources) Start: 09-29-2024 Start: 09-29-2024 take 1 [...] succinate 25 mg extended release oral tablet (11 sources) beta-Adrenergic Concetta Start: 01-10-2025 Start: 07-30-2023 End: 08-27-2024 nitrofurantoin, macrocrystal s 25 mg / nitrofurantoin, monohydrate 75 mg oral capsule (1 source) Nitrofuran Antibacterial Start: 01-10-2025 Start: 01-10-2025 omeprazole 40 mg delayed rel ease oral capsule (20 sources) Proton Pump Inhibitor Start: 09-21-2024 End: 09-22-2024 Start: 07-30-2023 take 1 capsule by [facility] once daily Omeprazole 20 mg capsule,delayed release(DR/EC) [...] June 20, 2019 June 27, 2019 12:02am aluminum hydroxide 80 mg/ml / magnesium hydroxide 80 mg/ml / simethicone 8 mg/ml oral suspension (1 source) Start: 09-29-2024 End: 10-03-2024 apixaban 5 mg oral tablet (18 sources) Factor Xa Inhibitor Start: 08-04-2023 End: [...] daily bisacodyl 10 mg rectal suppo sitory (19 sources) Stimulant Laxative Start: 10-14-2022 End: 07-30-2023 ciprofloxacin 500 mg oral ta blet (19 sources) Quinolone Antimicrobial Start: 10-14-2022 End: 11-04-2022 citalopram 20 mg oral tablet (20 sources) Serotonin Reuptake Inhibitor Start: 08-09-2022 End: 10-13-2022 Start: 02-17-2020 take 20 mg by mouth once daily Citalopram Active 20 MG PO DAILY February 17, 2020 12:00am dicyclomine hydrochloride 10 mg oral capsule (20 sources) Anticholinergic Start: 01-25-2020 End: 02-17-2020 doxycycline hyclate 100 mg o ral tablet (16 sources) Tetracycline-class Drug Start: 08-29-2024 End: 09-21-2024 Start: 01-04-2024 End: 08-27-2024 gabapentin 400 mg oral capsu le (20 sources) Anti-epileptic Agent Start: 04-20-2022 End: 01-03-2024 levoFLOXacin 500 mg oral tab let (20 sources) Quinolone Antimicrobial Start: 09-22-2024 End: 09-29-2024 Start: 08-02-2022 End: 10-13-2022 metroNIDAZOLE 500 mg oral ta blet (20 sources) Nitroimidazole Antimicrobial Start: 09-22-2024 End: 09-29-2024 Start: 10-14-2022 End: 11-04-2022 naproxen 500 mg oral tablet (20 sources) Nonsteroidal Anti-inflammatory Drug Start: 10-13-2022 End: 03-17-2023 nystatin 330102 unt/ml oral suspension (20 sources) Polyene Antifungal Start: 08-08-2022 End: 08-15-2022 [...] 170 00 mg powder for oral solution (19 sources) Osmotic Laxative Start: 10-14-2022 End: 03-17-2023 predniSONE 20 mg oral tablet (14 sources) Start: 03-17-2023 End: 07-30-2023 Start: 03-17-2023 End: 07-30-2023 take 40 mg by mouth once daily Prednisone Discontinued 40 MG PO DAILY 10 March 17, 2023 1:00am July 30, 2023 4:02pm traMADol hydrochloride 50 mg oral tablet (14 sources) Opioid Agonist Start: 03-17-2023 End: 11-02-2023 [...] PO AT BEDTIME February 17, 2020 12:00am (3 sources) Start: 09-29-2024 End: 10-03-2024 Start: 02-17-2020 End: 10-13-2022 Problems Active Problems Problem Classification Problem Date Documented Da te Episodic/Chronic Abdominal pain (20 sources) Generalized abdominal pain; Translations: [Generalized abdominal pain] 01-26-2020 Episodic Acute and unspecified renal failure (11 sources) Acute renal failure syndrome; Translations: [Acute kidney failure, unspecified] 07-30-2023 Episodic Anxiety disorders (8 sources) Anxiety; Translations: [Anxiety disorder, unspecified] Onset: 2025 Chronic Aspiration pneumonitis; food/vomitus (20 sources) Aspiration [...] hypertension (2 sources) Essential (primary) hypertension; Translations: [Hypertension, unspecified type] Onset: Chronic Fluid and electrolyte disorders (11 sources) Dehydration; Translations: [Dehydration] 07-30-2023 Episodic Fracture of upper limb (20 sources) Closed fracture proximal humerus, greater tuberosity; Translations: [Displaced fracture of greater tuberosity of right humerus, initial encounter for closed fracture] 07-24-2023 Episodic Headache; including migraine (20 sources) Migraine; Translations: [Refractory migraine without aura] 01-23-2020 Chronic Headache; including migraine (2 sources) Headache; including migraine; Translations: [Acute intractable headache, unspecified headache type] Onset: Immunizations and screening for infectious disease (2 [...] spinal region] Onset: 5 Chronic Other aftercare (9 sources) Long-term current use of 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; Translations: [long-term (current) use of 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s] 08-19-2023 Episodic Other bone disease and musculoskeletal deformities (20 sources) Segmental and somatic dysfunction; Translations: [Segmental and somatic dysfunction of lumbar region] 02-17-2020 Episodic Other bone disease and musculoskeletal deformities (20 sources) Thoracic segmental dysfunction; Translations: [Segmental and somatic dysfunction of thoracic region] 02-17-2020 Episodic Other circulatory disease (10 sources) Low blood pressure; Translations: [Hypotension, unspecified] 07-30-2023 Episodic Other circulatory disease (1 source) Hypotension, unspecified; Translations: [Hypotension, unspecified] 07-30-2023 Episodic Other connective tissue disease (5 sources) Weakness of face muscles; Translations: [Facial weakness] 08-03-2022 Episodic Other connective tissue disease (5 sources) Facial weakness; Translations: [Facial weakness] 08-03-2022 Episodic Other connective tissue disease (20 sources) Recurrent falls ; Translations: [Repeated falls] 09-21-2024 Episodic Other connective tissue disease (2 sources) Repeated falls; Translations: [Frequent falls] Onset: 5 Episodic Other gastrointestinal disorders (20 sources) Dysphagia; Translations: [Dysphagia, unspecified] 08-11-2022 Episodic Other gastrointestinal disorders (10 sources) Oropharyngeal dysphagia; Translations: [Dysphagia, oropharyngeal phase] 09-22-2024 Episodic Other gastrointestinal disorders (1 source) Dysphagia, unspecified; Translations: [Dysphagia, unspecified type] Onset: 5 Episodic Other gastrointestinal disorders (1 source) Dysphagia, oropharyngeal phase; Translations: [Dysphagia, oropharyngeal phase] Onset: 5 Episodic Other hereditary and degenerative nervous system conditions (1 source) Other specified forms of tremor; Translations: [Action tremor] Onset: 5 Chronic Other injuries and conditions due to external causes (20 sources) Traumatic hematoma; Translations: [Other injury of [...] [Hypoxemia] 07-29-2022 Episodic Other lower respiratory disease (19 sources) Hypoxia; Translations: [Hypoxemia] 07-30-2023 Episodic Other lower respiratory disease (8 sources) Single lobe lung infiltrate; Translations: [Other nonspecific abnormal finding of lung field] 08-27-2024 Episodic Other nervous system disorders (20 sources) Disorder of brain; Translations: [Encephalopathy, unspecified] 01-12-2024 Chronic Other nervous system disorders (8 sources) Walking disability; Translations: [Difficulty in walking, not elsewhere classified] 09-22-2024 Chronic Other nervous system disorders (2 sources) Other chronic pain; Translations: [Chronic low back pain, unspecified back pain laterality, unspecified whether sciatica present] Onset: 5 Chronic Other nervous system disorders (1 source) Other specified disorders of brain; Translations: [Cerebral ventriculomegaly] Onset: 5 Chronic Other nervous system disorders (1 source) Difficulty in walking, not elsewhere classified; Translations: [Difficulty in walking, not elsewhere classified] Onset: Chronic Other nervous system disorders (1 source) Other encephalopathy; Translations: [Other encephalopathy] Onset: 5 Chronic Other nervous system disorders (19 sources) Toxic metabolic encephalopathy; Translations: [Toxic metabolic encephalopathy] 11-12-2022 Episodic Other nervous system disorders (1 source) Unspecified abnormalities of gait and mobility; Translations: [Abnormality of gait] Onset: Episodic Other nutritional; endocrine; and metabolic disorders (10 sources) Adult failure to thrive syndrome; Translations: [Adult failure to thrive] 09-27-2024 Episodic Other nutritional; endocrine; and metabolic disorders (4 sources) Weight decreased; Translations: [Abnormal weight loss] 10-01-2024 Episodic Other nutritional; endocrine; and metabolic disorders (2 sources) Adult failure to thrive; Translations: [Failure to thrive in adult] Onset: Episodic Other nutritional; endocrine; and metabolic [...] (20 sources) Pneumonia; Translations: [Pneumonia, unspecified organism] 07-29-2022 Episodic Pulmonary heart disease (11 sources) Pulmonary embolism; Translations: [Other pulmonary embolism without acute cor pulmonale] 07-30-2023 Episodic Residual codes; unclassified (1 source) Altered mental status; Translations: [Altered mental status, unspecified] 11-01-2022 Episodic Residual codes; unclassified (1 source) Altered mental status, unspecified; Translations: [Altered mental status] 11-01-2022 Episodic Residual codes; unclassified (7 sources) Confusional state; Translations: [Disorientation, unspecified] 09-21-2024 Episodic Residual codes; unclassified (4 sources) Insomnia; Translations: [Insomnia, unspecified] 09-29-2024 Episodic Residual codes; unclassified (2 sources) Other amnesia; Translations: [Memory problem] Onset: Episodic Residual codes; unclassified (2 sources) Insomnia, unspecified; Translations: [Insomnia, unspecified type] Onset: Episodic Respiratory failure; insufficiency; arrest (adult) (20 sources) Respiratory failure; Translations: [Respiratory failure, unspecified, unspecified whether with hypoxia or hypercapnia] 07-29-2022 Episodic Screening and history of mental health and substance abuse codes (2 sources) Encounter for screening for depression; Translations: [Encounter for screening examination for other mental health and behavioral disorders] Onset: Episodic Septicemia (except in labor) (8 sources) Sepsis; Translations: [Sepsis, unspecified organism] 08-27-2024 Episodic Spondylosis; intervertebral disc disorders; other back problems (20 sources) Chronic low back pain; Translations: [Chronic low back pain] Onset: 5 01-23-2020 Episodic Comment on above: Has electrical stimu lator Sprains and strains (20 sources) Strain of neck muscle; Translations: [Strain of muscle, fascia and tendon at neck level, initial encounter] 09-03-2022 Episodic Suicide and intentional self-inflicted injury (2 sources) Suicidal thoughts; Translations: [Suicidal ideations] Onset: 5 01-10-2025 Episodic Superficial injury; contusion (20 sources) Contusion of lower back; Translations: [Contusion of lower back and pelvis, initial encounter] 09-06-2023 Episodic Unclassified (3 sources) Follow-up within PCP within 3-5 days. Unclassified (1 source) Chronic low back pain, unspecified back pain laterality, unspecified whether sciatica present; Translations: [Chronic low back pain, unspecified back pain laterality, unspecified whether sciatica present] Onset: 5 Unclassified (1 source) Other toxic encephalopathy; Translations: [Other toxic encephalopathy] Onset: 5 Urinary tract infections (9 sources) Acute urinary tract infection; Translations: [Urinary tract infection, site not specified] 01-03-2024 Episodic Past or Other Problems Problem Classification Problem Date Documented Da te Episodic/Chronic Fever of unknown origin (9 sources) Fever; Translations: [Fever, unspecified] Onset: 09-24-2024 09-22-2024 Episodic Genitourinary symptoms and ill-defined conditions (20 sources) Retention of urine; Translations: [Retention of urine, unspecified] Onset: 05-01-2024 10-13-2022 Episodic Other infections; including parasitic (1 source) Unspecified infectious disease; Translations: [Unspecified infectious disease] Onset: 08-29-2024 Episodic Other non-traumatic joint disorders (2 sources) Pain in right shoulder; Translations: [Chronic right shoulder pain] Onset: 06-11-2024 Episodic Residual codes; unclassified (1 source) Disorientation, unspecified; Translations: [Disorientation, unspecified] Onset: 09-24-2024 Episodic Residual codes; unclassified (1 source) Chills (without fever); Translations: [Chills (without fever)] Onset: 03-20-2024 Episodic Results Test Name Value Interpretation Reference Range Facility Urine Cultureon 01-13-2025 URC Normal [facility] Comment on above: Performed By: #### M [id number] ####[facility] [id number] [place], [place], [address] 12 Lead EKGon 01-10-2025 12 Lead EKG Normal [facility] Absolute lymphocyte countOrd ered By: Xu Macias on 01-10-2025 Lymphocytes Auto (Unsp spec) [#/Vol] 2.28 10*3/uL 0.83-4.51 [facility] Alcohol, Blood (Medical)-Ser umon 01-10-2025 SERUM ETOH < 10.1 Normal <=10.0 [facility] Comment on above: Result Comment: This test is for medical purposes only. The legaldefinition of intoxication varies according to local law. Performed By: #### L [id number], L505.5000, L100.0100 ####[facility] [address] [place], [place], [address] Amphetamine detection with 1 000 ng/mL as cutoffOrdered By: Xu Macias on 01-10-2025 Amphetamines Screen method >1000 ng/mL Ql (U) Negative < 200 ng/mL [facility] Anion gap in Serum or Plasma Ordered By: Xu Macias on 01-10-2025 Anion gap [Moles/Vol] 11 mmol/L - [facility] Automated lymphocyte count a s percentage of total leukocytesOrdered By: Xu Macias on 01-10-2025 Lymphocytes/100 WBC Auto (Unsp spec) 38.8 % - [facility] BUN/creatinine ratioOrdered By: Xu Macias on 01-10-2025 Urea nitrogen/Creatinine [Mass ratio] 6.7 mg/mg Low 01-05 [facility] Basophil percentageOrdered B y: Xu Macias on 01-10-2025 Basophils/100 WBC (Bld) 1.7 % High 0-1 [facility] Bilirubin Test strip Ql (U)O rdered By: Xu Macias on 01-10-2025 Bilirubin Ql (U) Negative Negative [facility] Bilirubin, totalOrdered By: Xu Macias on 01-10-2025 Bilirubin [Mass/Vol] 0.17 mg/dL 0.00-1.30 [facility] Brain/Head without Contrasto n 01-10-2025 Brain/Head without Contrast Normal [facility] CBC W/Diff, Automatedon 12-18 Absolute Lymph 2.28 X10 3/uL Normal 0.83-4.51 [facility] Comment on above: Performed By: #### L [id number], L505.5000, L100.0100 ####[facility] [address] [place], [address] Absolute Neut 2.9 X10 3/uL Normal 2.0-7.7 [facility] Comment on above: Performed By: #### L [id number], L505.5000, L100.0100 ####[facility] [address] [place], [address] Basophils/100 WBC (Bld) 1.7 % High 0-1 [facility] Comment on above: Performed By: #### L [id number], [id number], L100.0100 ####[facility] [address] [place], [address] Eosinophils/100 WBC (Bld) 2.0 % Normal 0-5 [facility] Comment on above: Performed By: #### L [id number], L505.5000, L100.0100 ####[facility] [address] [place], [address] Erythrocyte distribution width (RBC) [Ratio] 14.6 % Normal 11.6-14.6 [facility] Comment on above: Performed By: #### L 501.9100, L505.5000, L100.0100 ####[facility] [address] [place], [address] Hematocrit (Bld) [Volume fraction] 37.6 % Normal 37-47 [facility] Comment on above: Performed By: #### L 501.9100, L505.5000, L100.0100 ####[facility] [address] [place], [address] Hemoglobin (Bld) [Mass/Vol] 12.0 g/dL Normal 12.0-15.0 [facility] Comment on above: Performed By: #### L 501.9100, L505.5000, L100.0100 ####[facility] [address] [place], [address] IG% 0.200 Normal 0.0-0.9 [facility] Comment on above: Result Comment: IG% - Immature Granulocytes (promyelocytes, myelocytes andmetamyelocytes) > 1% indicates that a LEFT SHIFT is Present. Performed By: #### L 501.9100, L505.5000, L100.0100 ####[facility] [address] [place], [address] Lymphocytes/100 WBC (Bld) 38.8 % Normal 19-41 [facility] Comment on above: Performed By: #### L 501.9100, L505.5000, L100.0100 ####[facility] [address] [place], [address] MCH (RBC) [Entitic mass] 29.9 pg Normal 27.0-32.0 [facility] Comment on above: Performed By: #### L 501.9100, L505.5000, L100.0100 ####[facility] [address] [place], [address] MCHC (RBC) [Mass/Vol] 31.9 g/dL Low 32-36 [facility] Comment on above: Performed By: #### L 501.9100, L505.5000, L100.0100 ####[facility] [address] [place], [address] MCV (RBC) [Entitic vol] 93.5 fL Normal 81-99 [facility] Comment on above: Performed By: #### L 501.9100, L505.5000, L100.0100 ####[facility] [address] [place], [address] Monocytes/100 WBC (Bld) 7.5 % Normal 0-10 [facility] Comment on above: Performed By: #### L 501.9100, L505.5000, L100.0100 ####[facility] [address] [place], [address] Neutrophils/100 WBC (Bld) 49.8 % Normal 47-70 [facility] Comment on above: Performed By: #### L 501.9100, L505.5000, L100.0100 ####[facility] [address] [place], [address] Nucleated RBC (Bld) [#/Vol] 0 10*3/uL Normal 0-5 [facility] Comment on above: Performed By: #### L 501.9100, L505.5000, L100.0100 ####[facility] [address] [place], [address] Platelet mean volume (Bld) [Entitic vol] 9.9 fL Normal 6.2-12.0 [facility] Comment on above: Performed By: #### L 501.9100, L505.5000, L100.0100 ####[facility] [address] [place], [address] Platelets (Bld) [#/Vol] 411 10*3/uL Normal 150-450 [facility] Comment on above: Performed By: #### L 501.9100, L505.5000, L100.0100 ####[facility] [address] [place], [address] RBC (Bld) [#/Vol] 4.02 10*6/uL Low 4.2-5.4 [facility] Comment on above: Performed By: #### L 501.9100, L505.5000, L100.0100 ####[facility] [address] [place], [address] RDW SD 50.6 fl High 35.1-43.9 [facility] Comment on above: Performed By: #### L 501.9100, L505.5000, L100.0100 ####[facility] [address] [place], [address] WBC (Bld) [#/Vol] 5.9 10*3/uL Normal 4.4-11.0 [facility] Comment on above: Performed By: #### L 501.9100, L505.5000, L100.0100 ####[facility] [address] [place], [address] Carbon dioxide, total [Moles /volume] in Central venous bloodOrdered By: Xu Macias on 01-10-2025 CO2 [Moles/Vol] 22.2 mmol/L 21.0-32.0 [facility] Chloride assayOrdered By: Tami Macias on 01-10-2025 Chloride [Moles/Vol] 108 mmol/L 98-108 [facility] Comprehensive Metabolic Prof ilon 01-10-2025 Albumin [Mass/Vol] 3.5 g/dL Normal 3.4-4.8 [facility] Comment on above: Performed By: #### L 500.4050, L501.9520 ####[facility] [address] [place], [address] Albumin/Globulin [Mass ratio] 1.2 {ratio} Normal 0.9-2.4 [facility] Comment on above: Performed By: #### L 500.4050, L501.9520 ####[facility] [address] [place], [address] ALK PHOS 102 U/L Normal 35-104 [facility] Comment on above: Performed By: #### L 500.4050, L5.20 ####[facility] [address] [place], [address] ALT [Catalytic activity/Vol] 10 U/L Normal <=34 [facility] Comment on above: Performed By: #### L 500.4050, L5.20 ####[facility] [address] [place], [address] AST [Catalytic activity/Vol] 20 U/L Normal <=31 [facility] Comment on above: Performed By: #### L 500.4050, L5.20 ####[facility] [address] [place], [address] Bilirubin [Mass/Vol] 0.17 mg/dL Normal 0.00-1.30 [facility] Comment on above: Performed By: #### L 500.4050, L5.20 ####[facility] [address] [place], [address] BUN/CRE 6.7 RATIO Low 10-20 [facility] Comment on above: Performed By: #### L 500.4050, L5.9520 ####[facility] [address] [place], [address] Calcium [Mass/Vol] 9.1 mg/dL Normal 7.6-11.0 [facility] Comment on above: Performed By: #### L 500.4050, L5.9520 ####[facility] [address] [place], [address] Chloride [Moles/Vol] 108 mmol/L Normal 98-108 [facility] Comment on above: Performed By: #### L 500.4050, L5.20 ####[facility] [address] [place], [address] CO2 [Moles/Vol] 22.2 mmol/L Normal 21.0-32.0 [facility] Comment on above: Performed By: #### L 500.4050, L5.20 ####[facility] [address] [place], [address] Creatinine [Mass/Vol] 0.87 mg/dL Normal 0.70-1.20 [facility] Comment on above: Performed By: #### L 500.4050, L5.9519 ####[facility] [address] [place], [address] ECRCL 41.03 ml/min Low 50-250 [facility] Comment on above: Performed By: #### L 500.4050, L5.9519 ####[facility] [address] [place], [address] GAP 11 Normal 5-15 [facility] Comment on above: Performed By: #### L 500.4050, L5 ####[facility] [address] [place], [address] GFR/1.73 sq M.predicted among non-blacks MDRD (S/P/Bld) [Vol rate/Area] 70 mL/min/{1.73_m2} Normal >60 [facility] Comment on above: Result Comment: mL/m in/1.73m2 CKD-EPI Creatinine Equation (2020) Performed By: #### L 500.4050, L5.20 ####[facility] [address] [place], [address] Globulin (S) [Mass/Vol] 3.0 g/dL Normal 2.2-4.2 [facility] Comment on above: Performed By: #### L 500.4050, L501.9520 ####[facility] [address] [place], [address] Glucose [Mass/Vol] 103 mg/dL High 70-99 [facility] Comment on above: Performed By: #### L 500.4050, L501.9520 ####[facility] [address] [place], [address] Potassium [Moles/Vol] 3.6 mmol/L Normal 3.3-5.1 [facility] Comment on above: Performed By: #### L 500.4050, L501.9520 ####[facility] [address] [place], [address] Sodium [Moles/Vol] 141 mmol/L Normal 133-145 [facility] Comment on above: Performed By: #### L 500.4050, L501.9520 ####[facility] [address] [place], [address] T PROT 6.4 g/dL Normal 5.9-8.4 [facility] Comment on above: Performed By: #### L 500.4050, L501.9520 ####[facility] [address] [place], [address] Urea nitrogen [Mass/Vol] 6 mg/dL Normal 4-19 [facility] Comment on above: Performed By: #### L 500.4050, L501.9520 ####[facility] [address] [place], [address] Emergency Department Summary on 01-10-2025 Emergency Department Summary Normal [facility] Eosinophil percentageOrdered By: Xu Macias on 01-10-2025 Eosinophils/100 WBC (Bld) 2.0 % 0-5 [facility] Erythrocyte distribution wid th ratioOrdered By: Xu Macias on 01-10-2025 Erythrocyte distribution width (RBC) [Ratio] 14.6 % 11.6-14.6 [facility] Erythrocyte distribution wid th standard deviationOrdered By: Xu Macias on 01-10-2025 Erythrocyte distribution width (RBC) [Ratio] 50.6 fl High 35.1-43.9 [facility] Glomerular filtration rate ( GFR) estimation/1.73 sq m using serum, plasma, or whole bOrdered By: Xu Macias on 01-10-2025 GFR/1.73 sq M.predicted among non-blacks MDRD (S/P/Bld) [Vol rate/Area] 70 mL/min/{1.73_m2} >60 [facility] Hematocrit Auto (Bld) [Volum e fraction]Ordered By: Xu Macias on 01-10-2025 Hematocrit (Bld) [Volume fraction] 37.6 % 37-47 [facility] Hemoglobin measurementOrdere d By: Xu Macias on 01-10-2025 Hemoglobin (Bld) [Mass/Vol] 12.0 g/dL 12.0-15.0 [facility] Immature granulocytes/100 WB C Auto (Bld)Ordered By: Xu Macias on 01-10-2025 Immature granulocytes/100 WBC (Bld) 0.200 % 0.0-0.9 [facility] Ketones Test strip Ql (U)Ord ered By: Xu Macias on 01-10-2025 Ketones Ql (U) Negative Negative [facility] MCV (mean corpuscular volume ) determinationOrdered By: Xu Macias on 01-10-2025 MCV (RBC) [Entitic vol] 93.5 fL 81-99 [facility] Mean corpuscular hemoglobin (MCH) determinationOrdered By: Xu Macias on 01-10-2025 MCH (RBC) [Entitic mass] 29.9 pg 27.0-32.0 [facility] Monocyte percentageOrdered B y: Xu Macias on 01-10-2025 Monocytes/100 WBC (Bld) 7.5 % 0-10 [facility] Mucus LM Ql (Urine sed)Order ed By: Xu Macias on 01-10-2025 Mucus Ql (Urine sed) 0 SEEN /hpf [facility] Neutrophil percentageOrdered By: Xu Macias on 01-10-2025 Neutrophils/100 WBC (Bld) 49.8 % 47-70 [facility] Nitrite Test strip Ql (U)Ord ered By: Xu Macias on 01-10-2025 Nitrite Ql (U) Negative Negative [facility] No Panel InformationOrdered By: Xu Macias on 01-10-2025 Negative < 200 ng/mL [facility] 20 U/L <32 [facility] Platelet countOrdered By: Tami Macias on 01-10-2025 Platelets (Bld) [#/Vol] 411 10*3/uL 150-450 [facility] Potassium measurement (mass/ volume)Ordered By: Xu Macias on 01-10-2025 Potassium (Unsp spec) [Mass/Vol] 3.6 mmol/L 3.3-5.1 [facility] Protein Test strip Ql (U)Ord ered By: Xu Macias on 01-10-2025 Protein Ql (U) 30 mg/dl High Negative [facility] RBC Auto (Bld) [#/Vol]Ordere d By: Xu Macias on 01-10-2025 RBC (Bld) [#/Vol] 4.02 10*6/uL Low 4.2-5.4 [facility] Screening urine fentanyl eliezer surementOrdered By: Xu Macias on 01-10-2025 fentaNYL Screen Ql (U) Negative <5 ng/mL [facility] Serum creatinine measurement (mass/volume)Ordered By: Xu Macias on 01-10-2025 Creatinine [Mass/Vol] 0.87 mg/dL 0.70-1.20 [facility] Serum globulin measurementOr dered By: Xu Macias on 01-10-2025 Globulin (S) [Mass/Vol] 3.0 g/dL 2.2-4.2 [facility] Serum glucose measurement (m ass/volume)Ordered By: Xu Macias on 01-10-2025 Glucose [Mass/Vol] 103 mg/dL High 70-99 [facility] Serum or plasma alanine soliz otransferase (ALT) measurementOrdered By: Xu Macias on 01-10-2025 ALT [Catalytic activity/Vol] 10 U/L <35 [facility] Serum or plasma albumin rosangela urement (mass/volume)Ordered By: Xu Macias on 01-10-2025 Albumin [Mass/Vol] 3.5 g/dL 3.4-4.8 [facility] Serum or plasma albumin/glob ulin mass ratioOrdered By: Xu Macias on 01-10-2025 Albumin/Globulin [Mass ratio] 1.2 {ratio} 0.9-2.4 [facility] Serum or plasma alkaline faustino sphatase measurementOrdered By: Xu Macias on 01-10-2025 ALP [Catalytic activity/Vol] 102 U/L 35-104 [facility] Serum or plasma calcium rosangela urement (mass/volume)Ordered By: Xu Macias on 01-10-2025 Calcium [Mass/Vol] 9.1 mg/dL 7.6-11.0 [facility] Serum or plasma ethanol rosangela urement (mass/volume)Ordered By: Xu Macias on 01-10-2025 Ethanol [Mass/Vol] mg/dL <10.1 [facility] Serum or plasma urea nitroge n measurement (mass/volume)Ordered By: Xu Macias on 01-10-2025 Urea nitrogen [Mass/Vol] 6 mg/dL 4-19 [facility] Sodium levelOrdered By: Bhupendra Macias on 01-10-2025 Sodium [Moles/Vol] 141 mmol/L 133-145 [facility] Squamous epithelial cells de tection in urine sediment by light microscopyOrdered By: Xu Macias on 01-10-2025 Epithelial cells.squamous LM Ql (Urine sed) 0-5 SEEN /hpf 5-10 [facility] TSH DL <= 0.005 mIU/L QnOrde red By: Xu Macias on 01-10-2025 TSH Qn 0.605 uIU/mL 0.300-4.20 0 [facility] Thyroid Stim Hormone (TSH)on 01-10-2025 TSH 0.605 uIU/mL Normal 0.300-4.20 0 [facility] Comment on above: Performed By: #### L 500.4050, L501.9520 ####[facility] [address] [place], [address] Total proteinOrdered By: Jose Macias on 01-10-2025 Protein [Mass/Vol] 6.4 g/dL 5.9-8.4 [facility] Transitional cells detection in urine sediment by light microscopyOrdered By: Xu Macias on 01-10-2025 Transitional cells LM Ql (Urine sed) 0-5 SEEN /hpf 0-5 [facility] Urinalysis, Completeon 01-10 BACTERIA 1+ /hpf Normal None Seen [facility] Comment on above: Order Comment: CLEAN CATCH Performed By: #### L 400.0001 ####[facility] [address] [place], [address] YEAST 2+ /hpf Normal None Seen [facility] Comment on above: Order Comment: CLEAN CATCH Performed By: #### L 400.0001 ####[facility] [address] [place], [address] EPI,SQUAMOUS 0-5 SEEN Normal 5-10 [facility] Comment on above: Order Comment: CLEAN CATCH Performed By: #### L 400.0001 ####[facility] [address] [place], [address] EPI,TRANSITION 0-5 SEEN Normal 0-5 [facility] Comment on above: Order Comment: CLEAN CATCH Performed By: #### L 400.0001 ####[facility] [address] [place], [address] RBC 5-10 SEEN Normal 0-5 [facility] Comment on above: Order Comment: CLEAN CATCH Performed By: #### L 400.0001 ####[facility] [address] [place], [address] WBC >100 SEEN Normal 0-5 [facility] Comment on above: Order Comment: CLEAN CATCH Result Comment: Micr oscopic field is filled. Other elements may beobscured. Performed By: #### L 400.0001 ####[facility] [address] [place], [address] Mucus Ql (Urine sed) 0 SEEN Normal [facility] Comment on above: Order Comment: CLEAN CATCH Performed By: #### L 400.0001 ####[facility] [address] [facility] [address] Urine Drug Screen (VISTA)on 01-10-2025 AMPHETAMINES Negative Normal <1000 ng/mL [facility] Comment on above: Performed By: #### L 501.9100, L505.5000, L100.0100 ####[facility] [address] [place], [address] BARBITIURATES Negative Normal < 200 ng/mL [facility] Comment on above: Performed By: #### L 501.9100, L505.5000, L100.0100 ####[facility] [address] [facility] [address] BENZODIAZIPINE Positive Normal < 200 ng/mL [facility] Comment on above: Result Comment: If c onfirmation testing is needed, a separate order will berequired to send out testing to the reference laboratory. Performed By: #### L 501.9100, L505.5000, L100.0100 ####[facility] [address] [place], [address] BUP Ur Drug Scr Negative Normal < 200 ng/mL [facility] Comment on above: Performed By: #### L 501.9100, L505.5000, L100.0100 ####[facility] [address] [place], [address] COCAINE Negative Normal < 300 ng/mL [facility] Comment on above: Performed By: #### L 501.9100, L505.5000, L100.0100 ####[facility] [address] [place], [address] Fentanyl Negative Normal <5 ng/mL [facility] Comment on above: Result Comment: CONF IRMATORY TESTING FOR ALL POSITIVE URINE DRUG SCREENRESULTS WILL ONLY BE SENT OUT UPON PHYSICIAN ORDER.Audrey Pro Urine Drug Screen methods provide only preliminaryanalytical test results. A more specific alternate chemicalmethod must be used in order to obtain a confirmedanalytical result. Gas chromatography/mass spectrometery(GC/MS) is the preferred confirmatory method. Clinicalconsideration and professional judgement should be appliedto any drug of abuse test result, particularly whenpreliminary positive results are used.Urine TCA testing must be ordered separately. Use testmnemonic: [facility] Performed By: #### L 501.9100, L505.5000, L100.0100 ####[facility] [address] [place], [address] METHADONE Negative Normal < 300 ng/mL [facility] Comment on above: Performed By: #### L 501.9100, L505.5000, L100.0100 ####[facility] [address] [place], [address] OPIATES Negative Normal < 300 ng/mL [facility] Comment on above: Performed By: #### L 501.9100, L505.5000, L100.0100 ####[facility] [address] [place], [address] OXYCODONE Negative Normal < 100 ng/mL [facility] Comment on above: Performed By: #### L 501.9100, L505.5000, L100.0100 ####[facility] [address] [place], [address] PCP Negative Normal < 25 ng/mL [facility] Comment on above: Performed By: #### L 501.9100, L505.5000, L100.0100 ####[facility] [address] [place], [address] THC Negative Normal < 50 ng/mL [facility] Comment on above: Performed By: #### L 501.9100, L505.5000, L100.0100 ####[facility] [address] [place], [address] Urine clarityOrdered By: Jose Macias on 01-10-2025 Clarity (U) Cloudy Clear [facility] Urine color determinationOrd ered By: Xu Macias on 01-10-2025 Color (U) Yellow Yellow [facility] Urine cultureOrdered By: Jose Macias on 01-10-2025 Bacteria identified Cx Nom (U) Yeast, not Mary Alice albicans Abnormal [facility] Bacteria identified Cx Nom (U) Positive Abnormal [facility] Urine glucose detectionOrder ed By: Xu Macias on 01-10-2025 Glucose Ql (U) Normal mg/dl Normal [facility] Urine leukocyte esterase det ection by dipstickOrdered By: Xu Macias on 01-10-2025 Leukocyte esterase Test strip Ql (U) 500 /ul High Negative [facility] Urine pHOrdered By: Xu Macias on 01-10-2025 pH (U) 6.0 [pH] 5.0 - 8.0 [facility] Urine phencyclidine (PCP) de tectionOrdered By: Xu Macias on 01-10-2025 Phencyclidine Ql (U) Negative < 25 ng/mL [facility] Urine sediment bacteria coun t by microscopy (number/high power field)Ordered By: Xu Macias on 01-10-2025 Bacteria LM.HPF (Urine sed) [#/Area] 1 /[HPF] None Seen [facility] Urine sediment yeast count b y microscopy (number/high powered field)Ordered By: Xu Macias on 01-10-2025 Yeast LM.HPF (Urine sed) [#/Area] 2 /[HPF] None Seen [facility] Urine specific gravity measu rementOrdered By: Xu Macias on 01-10-2025 Specific gravity (U) [Rel density] 1.015 1.002-1.03 0 [facility] Urine urobilinogen measureme ntOrdered By: Xu Macias on 01-10-2025 Urobilinogen Ql (U) Normal mg/dl Normal [facility] White blood cell (WBC) count Ordered By: Xu Macias on 01-10-2025 WBC (Bld) [#/Vol] 5.9 10*3/uL 4.4-11.0 [facility] White blood cell countOrdere d By: Xu Macias on 01-10-2025 White blood cell count >100 SEEN /hpf 0-5 [facility] CNOVon 01-08-2025 CNOV Office Visit (INTMWS ) CAROL DAVID ([id number]) 1950 F Date Time Provider Department 01/08/25 1:40 PM SHERMAN PASTRANA INTMWS During your visit today, we recorded the following information about you: Pulse Blood pressure Weight 93/minute 128/84 45.8 kg Sherman Pastrana APRN.PILL MAKER 01/08/2025 2:39 PM Signed Subjective Patient ID: Carol is a 74 year old female who presents for No chief complaint on file.. HPI Carol David is a 74-year-old female with migraines and generalized anxiety disorder, presenting for evaluation of a persistent headache. She was seen at [facility] for abrupt headache started 4 days prior to arrival on January 02, 2025. Lab results were unremarkable. Brain CT without intracranial hemorrhage no mass effect or midline shift. Chronic involutional and ischemic gliotic white matter changes are noted. Clinical impression was intractable migraine without aura and anxiety. She was prescribed clorazepate by potassium 3.75 mg oral twice daily as needed. Carol David is a 74-year-old female with a history of migraines, anxiety, and shoulder fracture, presenting for follow-up after a recent ER visit for a severe headache. Headache: - History of migraines; recent severe headache onset last Sunday, prompting ER visit after 4 days. - Received IV treatment in the ER with slight relief. - Reports current slight headache. - States ER physician prescribed three medications, but Carol reports was unable to pick them up due to pharmacy issues. Anxiety: - Experiencing extreme anxiety. - Previously prescribed clonazepam last month; Carol reports not receiving it. Memory Concerns: - Does not recall previous visit with the clinician last month. - Denies other memory issues at home. - States no assistance at home; helps with medications. Shoulder Fracture: - Seen by an orthopedist; surgery recommended but declined by Carol. - Previously prescribed Celebrex; Carol reports not taking it. ROS Head: (+) headache Neurological: (+) memory loss Psychiatric: (+) anxiety Objective BP 128/84 (BP Site: Left Arm, BP Position: Sitting) Pulse 93 Wt 45.8 kg (101 lb) SpO2 97% BMI 20.75 kg/m? Physical Exam Vitals and nursing note [...] oriented to person, place, and time. 1. Acute intractable headache, unspecified headache type (R51.9) - Recent severe headache episode led to ED visit at [place]; received IV treatment with slight improvement. - Headache currently mild; no daily recurrence reported. - states unable to obtain prescribed medications due to pharmacy issues. 2. Memory problem (R41.3) - demonstrates significant memory impairment, including inability to recall recent visits and medication history. - Refer to Dr. Ohara (Geriatrics) for further evaluation and management. Spouse to assist with medication management. 3. Chronic low back pain, unspecified back pain laterality, unspecified whether sciatica present (M54.50) 4. Scoliosis, unspecified scoliosis type, unspecified spinal region (M41.9) 5. Chronic right shoulder pain (M25.511) - Patient declined surgical intervention as recommended by orthopedist. - Reordered Celebrex; prescription sent to [facility]. 6. Anxiety (F41.9) 7. Insomnia, unspecified type (G47.00) - Anxiety and insomnia ongoing; previously prescribed doxepin and clonazepam. - Reordered doxepin and clonazepam; prescriptions sent to [facility]. 8. Hypertension, unspecified type (I10) Controlled, continue present management 9. Gastroesophageal reflux disease, unspecified whether esophagitis present (K21.9) Controlled, continue present management Sherman Pastrana APRN.PILL MAKER Medical Decision Making: Problems: Moderate: 2+ stable chronic illnesses and New problem with uncertain prognosis Data: Unique source(s) for external note(s) reviewed: 1 Unique test result(s) reviewed: 1 Risk: Moderate: Drug management Medical Decision Making Level: 4 - Moderate Allergies As of Date: (more content not included)... Normal [facility] Absolute lymphocyte countOrd ered By: Huber Ballard on 01-02-2025 Lymphocytes Auto (Unsp spec) [#/Vol] 2.17 10*3/uL 0.83-4.51 [facility] Automated lymphocyte count a s percentage of total leukocytesOrdered By: Huber Balladr on 01-02-2025 Lymphocytes/100 WBC Auto (Unsp spec) 38.8 % 19- [facility] Basophil percentageOrdered B y: Hubre Ballard on 01-02-2025 Basophils/100 WBC (Bld) 1.3 % High 0-1 [facility] Brain/Head without Contrasto n 01-02-2025 Brain/Head without Contrast Normal [facility] CBC W/Diff, Automatedon 12-17 Absolute Lymph 2.17 X10 3/uL Normal 0.83-4.51 [facility] Comment on above: Performed By: #### L 100.0100, L101.9900 ####[facility] [address] [place], [address] Absolute Neut 2.7 X10 3/uL Normal 2.0-7.7 [facility] Comment on above: Performed By: #### L 100.0100, L101.9900 ####[facility] [address] [place], [address] Basophils/100 WBC (Bld) 1.3 % High 0-1 [facility] Comment on above: Performed By: #### L 100.0100, L101.9900 ####[facility] [address] [place], [address] Eosinophils/100 WBC (Bld) 1.6 % Normal 0-5 [facility] Comment on above: Performed By: #### L 100.0100, L101.9900 ####[facility] [address] [place], [address] Erythrocyte distribution width (RBC) [Ratio] 14.7 % High 11.6-14.6 [facility] Comment on above: Performed By: #### L 100.0100, L101.9900 ####[facility] [address] [place], [address] Hematocrit (Bld) [Volume fraction] 39.9 % Normal 37-47 [facility] Comment on above: Performed By: #### L 100.0100, L101.9900 ####[facility] [address] [place], [address] Hemoglobin (Bld) [Mass/Vol] 13.0 g/dL Normal 12.0-15.0 [facility] Comment on above: Performed By: #### L 100.0100, L101.9900 ####[facility] [address] [place], [address] IG% 0.400 Normal 0.0-0.9 [facility] Comment on above: Result Comment: IG% - Immature Granulocytes (promyelocytes, myelocytes andmetamyelocytes) > 1% indicates that a LEFT SHIFT is Present. Performed By: #### L 100.0100, L101.9900 ####[facility] [address] [place], [address] Lymphocytes/100 WBC (Bld) 38.8 % Normal 19-41 [facility] Comment on above: Performed By: #### L 100.0100, L101.9900 ####[facility] [address] [place], [address] MCH (RBC) [Entitic mass] 30.1 pg Normal 27.0-32.0 [facility] Comment on above: Performed By: #### L 100.0100, L101.9900 ####[facility] [address] [place], [address] MCHC (RBC) [Mass/Vol] 32.6 g/dL Normal 32-36 [facility] Comment on above: Performed By: #### L 100.0100, L101.9900 ####[facility] [address] [place], [address] MCV (RBC) [Entitic vol] 92.4 fL Normal 81-99 [facility] Comment on above: Performed By: #### L 100.0100, L101.9900 ####[facility] [address] [place], [address] Monocytes/100 WBC (Bld) 10.6 % High 0-10 [facility] Comment on above: Performed By: #### L 100.0100, L101.9900 ####[facility] [address] [place], [address] Neutrophils/100 WBC (Bld) 47.3 % Normal 47-70 [facility] Comment on above: Performed By: #### L 100.0100, L101.9900 ####[facility] [address] [place], [address] Nucleated RBC (Bld) [#/Vol] 0 10*3/uL Normal 0-5 [facility] Comment on above: Performed By: #### L 100.0100, L101.9900 ####[facility] [address] [place], [address] Platelet mean volume (Bld) [Entitic vol] 9.9 fL Normal 6.2-12.0 [facility] Comment on above: Performed By: #### L 100.0100, L101.9900 ####[facility] [address] [place], [address] Platelets (Bld) [#/Vol] 533 10*3/uL High 150-450 [facility] Comment on above: Performed By: #### L 100.0100, L101.9900 ####[facility] [address] [place], [address] RBC (Bld) [#/Vol] 4.32 10*6/uL Normal 4.2-5.4 [facility] Comment on above: Performed By: #### L 100.0100, L101.9900 ####[facility] [address] [place], [address] RDW SD 50.2 fl High 35.1-43.9 [facility] Comment on above: Performed By: #### L 100.0100, L101.9900 ####[facility] [address] [place], [address] WBC (Bld) [#/Vol] 5.6 10*3/uL Normal 4.4-11.0 [facility] Comment on above: Performed By: #### L 100.0100, L101.9900 ####[facility] [address] [place], [place], [address] Emergency Department Summary on 01-02-2025 Emergency Department Summary Normal [facility] Eosinophil percentageOrdered By: Huber Ballard on 01-02-2025 Eosinophils/100 WBC (Bld) 1.6 % 0-5 [facility] Erythrocyte Sed Rateon 01-02 SED RATE 42 mm/hr High 0-30 [facility] Comment on above: Performed By: #### L 100.0100, L101.9900 ####[facility] [address] [place], [place], [address] Erythrocyte distribution wid th ratioOrdered By: Huber Ballard on 01-02-2025 Erythrocyte distribution width (RBC) [Ratio] 14.7 % High 11.6-14.6 [facility] Erythrocyte distribution wid th standard deviationOrdered By: Huber Ballard on 01-02-2025 Erythrocyte distribution width (RBC) [Ratio] 50.2 fl High 35.1-43.9 [facility] Erythrocyte sedimentation ra teOrdered By: Huber Ballard on 01-02-2025 ESR (Bld) [Velocity] 42 mm/h High 0-30 [facility] Hematocrit Auto (Bld) [Volum e fraction]Ordered By: Huber Ballard on 01-02-2025 Hematocrit (Bld) [Volume fraction] 39.9 % 37-47 [facility] Hemoglobin measurementOrdere d By: Huber Ballard on 01-02-2025 Hemoglobin (Bld) [Mass/Vol] 13.0 g/dL 12.0-15.0 [facility] Immature granulocytes/100 WB C Auto (Bld)Ordered By: Huber Ballard on 01-02-2025 Immature granulocytes/100 WBC (Bld) 0.400 % 0.0-0.9 [facility] MCV (mean corpuscular volume ) determinationOrdered By: Huber Ballard on 01-02-2025 MCV (RBC) [Entitic vol] 92.4 fL 81-99 [facility] Mean corpuscular hemoglobin (MCH) determinationOrdered By: Huber Ballard on 01-02-2025 MCH (RBC) [Entitic mass] 30.1 pg 27.0-32.0 [facility] Monocyte percentageOrdered B y: Huberyandel Ballard on 01-02-2025 Monocytes/100 WBC (Bld) 10.6 % High 0-10 [facility] Neutrophil percentageOrdered By: Huberyandel Ballard on 01-02-2025 Neutrophils/100 WBC (Bld) 47.3 % 47-70 [facility] Platelet countOrdered By: [facility] Ballard on 01-02-2025 Platelets (Bld) [#/Vol] 533 10*3/uL High 150-450 [facility] RBC Auto (Bld) [#/Vol]Ordere d By: Huberyandel Ballard on 01-02-2025 RBC (Bld) [#/Vol] 4.32 10*6/uL 4.2-5.4 [facility] White blood cell (WBC) count Ordered By: Huberyandel Ballard on 01-02-2025 WBC (Bld) [#/Vol] 5.6 10*3/uL 4.4-11.0 [facility] [id number] 12-30-2024 [id number] O ID: [id number] Author: NICHOL CASAREZ PT Service: ? Author Type: Physical Therapist Type: [id number] Filed: 12/30/2024 09:42 Note Text: [facility] Physical Therapy Plan of Care Certification Patient Name: Carol David : 1950 [facility] #: [id number] Date: 12/29/2024 To: Sherman Pastrana APRN.PILL MAKER From Therapist: Nichol Casarez PT RE: Patient Certification/ Recertification Your review, approval and electronic signature are required in order to comply with Payor: [employer] / Plan: [facility] HMO / Product Type: HMO [...] Goals for Episode of Care: established 12/29/24 [facility] in home exercise program. Patient will decrease [...] of Visits Planned: 6 Planned Treatment Interventions: Self-intermediate management (47799), Gait Training (86460), Therapeutic activities (09066), Neuromuscular re-education (00974), Therapeutic exercise (49634), Manual therapy (66715) PLAN FOR NEXT VISIT: assess LBP, and [...] have reviewed the treatment plan for Carol David, [facility]# [id number] for the period of 12/29/24 -- 02/09/25, established on 12/29/2024. Signature certifies the need for therapy services. Normal [facility] CNTHERAPYon 12-29-2024 CNTHERAPY OT/PT/Speech Visit ( PTWS) CAROL DAVID ([id number]) 1950 F Date Time Provider Department 12/29/24 2:00 PM NICHOL CASAREZ Date Time Provider Department [place] 12/29/2024 2:00 PM [id number]-MNICHOL CASAREZ Reason for Visit: PT Jenyal [[id number]] Primary Visit Diagnosis:Low back pain with sciatica, [...] Date Reviewed: 12/11/2024 Reviewed by: Sherman Pastrana APRN.PILL MAKER - Fully Assessed Prescriptions as of 12/30/2024 [...] mouth once daily. Take with food Normal [facility] CNOVon 12-11-2024 CNOV Office Visit (INTMWS ) CAROL DAVID ([id number]) 1950 F [place] Date Time Provider Department 12/11/24 1:00 PM SHERMAN PASTRANA INTMWS During your visit today, we recorded the following information about you: Pulse Respiration Blood pressure Weight 91/minute 16/minute 124/82 41.7 kg Height 1.486 m Sherman Pastrana APRN.[facility] 12/11/2024 2:02 PM Signed Subjective Patient ID: Carol is a 74 year old female who presents for Establish Care. HPI The patient is a 74-year-old female with chronic low back and shoulder pain, gastroesophageal reflux disease, anxiety, and depression, presenting to establish care and for medication refills. Presents today to establish care with Alesha Sow MD Previous PCP: Dr. Luis Last seen: [...] - Carol was last seen by an principal bioinformatics specialist at [facility] 2 months ago; advised to take [...] reduced f (more content not included)... Normal [facility] Basic Metabolic Profile (BMP )on 10-28-2024 BUN Normal 4-19 [facility] Comment on above: Result Comment: Canc elled via OM: Order cancelled - Patient discharged Performed By: #### L 100.0100, L500.2500 ####[facility] [address] [place], [address] BUN/CRE Normal 10-20 [facility] Comment on above: Result Comment: Canc elled via OM: Order cancelled - Patient discharged Performed By: #### L 100.0100, L500.2500 ####[facility] [address] [place], [address] Calcium Normal 7.6-11.0 [facility] Comment on above: Result Comment: Canc elled via OM: Order cancelled - Patient discharged Performed By: #### L 100.0100, L500.2500 ####[facility] [address] [place], [address] CL Normal 98-108 [facility] Comment on above: Result Comment: Canc elled via OM: Order cancelled - Patient discharged Performed By: #### L 100.0100, L500.2500 ####[facility] [address] [place], [address] CO2 Normal 21.0-32.0 [facility] Comment on above: Result Comment: Canc elled via OM: Order cancelled - Patient discharged Performed By: #### L 100.0100, L500.2500 ####[facility] [address] [place], [address] CREAT,SERUM Normal 0.70-1.20 [facility] Comment on above: Result Comment: Canc elled via OM: Order cancelled - Patient discharged Performed By: #### L 100.0100, L500.2500 ####[facility] [address] [place], [address] eGFR Normal >60 [facility] Comment on above: Result Comment: Canc elled via OM: Order cancelled - Patient discharged Performed By: #### L 100.0100, L500.2500 ####[facility] [address] [place], [address] GAP Normal 5-15 [facility] Comment on above: Result Comment: Canc elled via OM: Order cancelled - Patient discharged Performed By: #### L 100.0100, L500.2500 ####[facility] [address] [place], [address] GLU Normal 70-99 [facility] Comment on above: Result Comment: Canc elled via OM: Order cancelled - Patient discharged Performed By: #### L 100.0100, L500.2500 ####[facility] [address] [place], [address] Potassium Normal 3.3-5.1 [facility] Comment on above: Result Comment: Canc elled via OM: Order cancelled - Patient discharged Performed By: #### L 100.0100, L500.2500 ####[facility] [address] [place], [address] Basic Metabolic Profile (BMP) Normal 133-145 [facility] Comment on above: Result Comment: Canc elled via OM: Order cancelled - Patient discharged Performed By: #### L 100.0100, L500.2500 ####[facility] [address] [place], [address] CBC W/Diff, Automatedon 10-17 Absolute Neut Normal 2.0-7.7 [facility] Comment on above: Result Comment: Canc elled via OM: Order cancelled - Patient discharged Performed By: #### L 100.0100, L500.2500 ####[facility] [address] [place], [address] HCT Normal 37-47 [facility] Comment on above: Result Comment: Canc elled via OM: Order cancelled - Patient discharged Performed By: #### L 100.0100, L500.2500 ####[facility] [address] [place], [address] HGB Normal 12.0-15.0 [facility] Comment on above: Result Comment: Canc elled via OM: Order cancelled - Patient discharged Performed By: #### L 100.0100, L500.2500 ####[facility] [address] [place], [address] MCH Normal 27.0-32.0 [facility] Comment on above: Result Comment: Canc elled via OM: Order cancelled - Patient discharged Performed By: #### L 100.0100, L500.2500 ####[facility] [address] [place], [address] MCHC Normal 32-36 [facility] Comment on above: Result Comment: Canc elled via OM: Order cancelled - Patient discharged Performed By: #### L 100.0100, L500.2500 ####[facility] [address] [place], [address] MCV Normal 81-99 [facility] Comment on above: Result Comment: Canc elled via OM: Order cancelled - Patient discharged Performed By: #### L 100.0100, L500.2500 ####[facility] [address] [place], [address] NEUT% Normal 47-70 [facility] Comment on above: Result Comment: Canc elled via OM: Order cancelled - Patient discharged Performed By: #### L 100.0100, L500.2500 ####[facility] [address] [place], [address] PLT Normal 150-450 [facility] Comment on above: Result Comment: Canc elled via OM: Order cancelled - Patient discharged Performed By: #### L 100.0100, L500.2500 ####[facility] [address] [place], [address] RBC Normal 4.2-5.4 [facility] Comment on above: Result Comment: Canc elled via OM: Order cancelled - Patient discharged Performed By: #### L 100.0100, L500.2500 ####[facility] [address] [place], [address] RDW CV Normal 11.6-14.6 [facility] Comment on above: Result Comment: Canc elled via OM: Order cancelled - Patient discharged Performed By: #### L 100.0100, L500.2500 ####[facility] [address] [place], [address] RDW SD Normal 35.1-43.9 [facility] Comment on above: Result Comment: Canc elled via OM: Order cancelled - Patient discharged Performed By: #### L 100.0100, L500.2500 ####[facility] [address] [place], [address] WBC Normal 4.4-11.0 [facility] Comment on above: Result Comment: Canc elled via OM: Order cancelled - Patient discharged Performed By: #### L 100.0100, L500.2500 ####[facility] [address] [place], [address] Basic Metabolic Profile (BMP )on 10-21-2024 BUN Normal 4-19 [facility] Comment on above: Result Comment: Canc elled via OM: Order cancelled - Patient discharged Performed By: #### L 100.0100, L500.2500 ####[facility] [address] [place], [address] BUN/CRE Normal 10-20 [facility] Comment on above: Result Comment: Canc elled via OM: Order cancelled - Patient discharged Performed By: #### L 100.0100, L500.2500 ####[facility] [address] [place], [address] Calcium Normal 7.6-11.0 [facility] Comment on above: Result Comment: Canc elled via OM: Order cancelled - Patient discharged Performed By: #### L 100.0100, L500.2500 ####[facility] [address] [place], [address] CL Normal 98-108 [facility] Comment on above: Result Comment: Canc elled via OM: Order cancelled - Patient discharged Performed By: #### L 100.0100, L500.2500 ####[facility] [address] [place], [address] CO2 Normal 21.0-32.0 [facility] Comment on above: Result Comment: Canc elled via OM: Order cancelled - Patient discharged Performed By: #### L 100.0100, L500.2500 ####[facility] [address] [place], [address] CREAT,SERUM Normal 0.70-1.20 [facility] Comment on above: Result Comment: Canc elled via OM: Order cancelled - Patient discharged Performed By: #### L 100.0100, L500.2500 ####[facility] [address] [place], [address] eGFR Normal >60 [facility] Comment on above: Result Comment: Canc elled via OM: Order cancelled - Patient discharged Performed By: #### L 100.0100, L500.2500 ####[facility] [address] [place], [address] GAP Normal 5-15 [facility] Comment on above: Result Comment: Canc elled via OM: Order cancelled - Patient discharged Performed By: #### L 100.0100, L500.2500 ####[facility] [address] [place], [address] GLU Normal 70-99 [facility] Comment on above: Result Comment: Canc elled via OM: Order cancelled - Patient discharged Performed By: #### L 100.0100, L500.2500 ####[facility] [address] [place], [address] Potassium Normal 3.3-5.1 [facility] Comment on above: Result Comment: Canc elled via OM: Order cancelled - Patient discharged Performed By: #### L 100.0100, L500.2500 ####[facility] [address] [place], [address] Basic Metabolic Profile (BMP) Normal 133-145 [facility] Comment on above: Result Comment: Canc elled via OM: Order cancelled - Patient discharged Performed By: #### L 100.0100, L500.2500 ####[facility] [address] [place], [address] CBC W/Diff, Automatedon 08-0 -2024 Absolute Neut Normal 2.0-7.7 [facility] Comment on above: Result Comment: Canc elled via OM: Order cancelled - Patient discharged Performed By: #### L 100.0100, L500.2500 ####[facility] [address] [place], [address] HCT Normal 37-47 [facility] Comment on above: Result Comment: Canc elled via OM: Order cancelled - Patient discharged Performed By: #### L 100.0100, L500.2500 ####[facility] [address] [place], [address] HGB Normal 12.0-15.0 [facility] Comment on above: Result Comment: Canc elled via OM: Order cancelled - Patient discharged Performed By: #### L 100.0100, L500.2500 ####[facility] [address] [place], [address] MCH Normal 27.0-32.0 [facility] Comment on above: Result Comment: Canc elled via OM: Order cancelled - Patient discharged Performed By: #### L 100.0100, L500.2500 ####[facility] [address] [place], [address] MCHC Normal 32-36 [facility] Comment on above: Result Comment: Canc elled via OM: Order cancelled - Patient discharged Performed By: #### L 100.0100, L500.2500 ####[facility] [address] [place], [address] MCV Normal 81-99 [facility] Comment on above: Result Comment: Canc elled via OM: Order cancelled - Patient discharged Performed By: #### L 100.0100, L500.2500 ####[facility] [address] [place], [address] NEUT% Normal 47-70 [facility] Comment on above: Result Comment: Canc elled via OM: Order cancelled - Patient discharged Performed By: #### L 100.0100, L500.2500 ####[facility] [address] [place], [address] PLT Normal 150-450 [facility] Comment on above: Result Comment: Canc elled via OM: Order cancelled - Patient discharged Performed By: #### L 100.0100, L500.2500 ####[facility] [address] [place], [address] RBC Normal 4.2-5.4 [facility] Comment on above: Result Comment: Canc elled via OM: Order cancelled - Patient discharged Performed By: #### L 100.0100, L500.2500 ####[facility] [address] [place], [address] RDW CV Normal 11.6-14.6 [facility] Comment on above: Result Comment: Canc elled via OM: Order cancelled - Patient discharged Performed By: #### L 100.0100, L500.2500 ####[facility] [address] [place], [address] RDW SD Normal 35.1-43.9 [facility] Comment on above: Result Comment: Canc elled via OM: Order cancelled - Patient discharged Performed By: #### L 100.0100, L500.2500 ####[facility] [address] [place], [address] WBC Normal 4.4-11.0 [facility] Comment on above: Result Comment: Canc elled via OM: Order cancelled - Patient discharged Performed By: #### L 100.0100, L500.2500 ####[facility] [address] [place], [address] Basic Metabolic Profile (BMP )on 10-14-2024 BUN Normal 4-19 [facility] Comment on above: Result Comment: Canc elled via OM: Order cancelled - Patient discharged Performed By: #### L 500.2500, L100.0100 ####[facility] [address] [place], [address] BUN/CRE Normal 10-20 [facility] Comment on above: Result Comment: Canc elled via OM: Order cancelled - Patient discharged Performed By: #### L 500.2500, L100.0100 ####[facility] [address] [place], [address] Calcium Normal 7.6-11.0 [facility] Comment on above: Result Comment: Canc elled via OM: Order cancelled - Patient discharged Performed By: #### L 500.2500, L100.0100 ####[facility] [address] [place], [address] CL Normal 98-108 [facility] Comment on above: Result Comment: Canc elled via OM: Order cancelled - Patient discharged Performed By: #### L 500.2500, L100.0100 ####[facility] [address] [place], [address] CO2 Normal 21.0-32.0 [facility] Comment on above: Result Comment: Canc elled via OM: Order cancelled - Patient discharged Performed By: #### L 500.2500, L100.0100 ####[facility] [address] [place], [address] CREAT,SERUM Normal 0.70-1.20 [facility] Comment on above: Result Comment: Canc elled via OM: Order cancelled - Patient discharged Performed By: #### L 500.2500, L100.0100 ####[facility] [address] [place], [address] eGFR Normal >60 [facility] Comment on above: Result Comment: Canc elled via OM: Order cancelled - Patient discharged Performed By: #### L 500.2500, L100.0100 ####[facility] [address] [place], [address] GAP Normal 5-15 [facility] Comment on above: Result Comment: Canc elled via OM: Order cancelled - Patient discharged Performed By: #### L 500.2500, L100.0100 ####[facility] [address] [place], [address] GLU Normal 70-99 [facility] Comment on above: Result Comment: Canc elled via OM: Order cancelled - Patient discharged Performed By: #### L 500.2500, L100.0100 ####[facility] [address] [place], [address] Potassium Normal 3.3-5.1 [facility] Comment on above: Result Comment: Canc elled via OM: Order cancelled - Patient discharged Performed By: #### L 500.2500, L100.0100 ####[facility] [address] [place], [address] Basic Metabolic Profile (BMP) Normal 133-145 [facility] Comment on above: Result Comment: Canc elled via OM: Order cancelled - Patient discharged Performed By: #### L 500.2500, L100.0100 ####[facility] [address] [place], [address] CBC W/Diff, Automatedon 07-2 Absolute Neut Normal 2.0-7.7 [facility] Comment on above: Result Comment: Canc elled via OM: Order cancelled - Patient discharged Performed By: #### L 500.2500, L100.0100 ####[facility] [address] [place], [address] HCT Normal 37-47 [facility] Comment on above: Result Comment: Canc elled via OM: Order cancelled - Patient discharged Performed By: #### L 500.2500, L100.0100 ####[place] [facility] [address] [place], [address] HGB Normal 12.0-15.0 [facility] Comment on above: Result Comment: Canc elled via OM: Order cancelled - Patient discharged Performed By: #### L 500.2500, L100.0100 ####[facility] [address] [place], [address] MCH Normal 27.0-32.0 [facility] Comment on above: Result Comment: Canc elled via OM: Order cancelled - Patient discharged Performed By: #### L 500.2500, L100.0100 ####[facility] [address] [place], [address] MCHC Normal 32-36 [facility] Comment on above: Result Comment: Canc elled via OM: Order cancelled - Patient discharged Performed By: #### L 500.2500, L100.0100 ####[facility] [address] [place], [address] MCV Normal 81-99 [facility] Comment on above: Result Comment: Canc elled via OM: Order cancelled - Patient discharged Performed By: #### L 500.2500, L100.0100 ####[facility] [address] [place], [address] NEUT% Normal 47-70 [facility] Comment on above: Result Comment: Canc elled via OM: Order cancelled - Patient discharged Performed By: #### L 500.2500, L100.0100 ####[facility] [address] [place], [address] PLT Normal 150-450 [facility] Comment on above: Result Comment: Canc elled via OM: Order cancelled - Patient discharged Performed By: #### L 500.2500, L100.0100 ####[facility] [address] [place], [address] RBC Normal 4.2-5.4 [facility] Comment on above: Result Comment: Canc elled via OM: Order cancelled - Patient discharged Performed By: #### L 500.2500, L100.0100 ####[facility] [address] [place], [address] RDW CV Normal 11.6-14.6 [facility] Comment on above: Result Comment: Canc elled via OM: Order cancelled - Patient discharged Performed By: #### L 500.2500, L100.0100 ####[facility] [address] [place], [address] RDW SD Normal 35.1-43.9 [facility] Comment on above: Result Comment: Canc elled via OM: Order cancelled - Patient discharged Performed By: #### L 500.2500, L100.0100 ####[facility] [address] [place], [address] WBC Normal 4.4-11.0 [facility] Comment on above: Result Comment: Canc elled via OM: Order cancelled - Patient discharged Performed By: #### L 500.2500, L100.0100 ####[facility] [address] [place], [address] Basic Metabolic Profile (BMP )on 10-07-2024 BUN Normal 4-19 [facility] Comment on above: Result Comment: Canc elled via OM: Order cancelled - Patient discharged Performed By: #### L 500.2500, L100.0100 ####[facility] [address] [place], [address] BUN/CRE Normal 10-20 [facility] Comment on above: Result Comment: Canc elled via OM: Order cancelled - Patient discharged Performed By: #### L 500.2500, L100.0100 ####[facility] [address] [place], [address] Calcium Normal 7.6-11.0 [facility] Comment on above: Result Comment: Canc elled via OM: Order cancelled - Patient discharged Performed By: #### L 500.2500, L100.0100 ####[facility] [address] [place], [address] CL Normal 98-108 [facility] Comment on above: Result Comment: Canc elled via OM: Order cancelled - Patient discharged Performed By: #### L 500.2500, L100.0100 ####[facility] [address] [place], [address] CO2 Normal 21.0-32.0 [facility] Comment on above: Result Comment: Canc elled via OM: Order cancelled - Patient discharged Performed By: #### L 500.2500, L100.0100 ####[facility] [address] [place], [address] CREAT,SERUM Normal 0.70-1.20 [facility] Comment on above: Result Comment: Canc elled via OM: Order cancelled - Patient discharged Performed By: #### L 500.2500, L100.0100 ####[facility] [address] [place], [address] eGFR Normal >60 [facility] Comment on above: Result Comment: Canc elled via OM: Order cancelled - Patient discharged Performed By: #### L 500.2500, L100.0100 ####[facility] [address] [place], [address] GAP Normal 5-15 [facility] Comment on above: Result Comment: Canc elled via OM: Order cancelled - Patient discharged Performed By: #### L 500.2500, L100.0100 ####[facility] [address] [place], [address] GLU Normal 70-99 [facility] Comment on above: Result Comment: Canc elled via OM: Order cancelled - Patient discharged Performed By: #### L 500.2500, L100.0100 ####[facility] [address] [place], [address] Potassium Normal 3.3-5.1 [facility] Comment on above: Result Comment: Canc elled via OM: Order cancelled - Patient discharged Performed By: #### L 500.2500, L100.0100 ####[facility] [address] [place], [address] Basic Metabolic Profile (BMP) Normal 133-145 [facility] Comment on above: Result Comment: Canc elled via OM: Order cancelled - Patient discharged Performed By: #### L 500.2500, L100.0100 ####[facility] [address] [place], [address] CBC W/Diff, Automatedon 07-2 Absolute Neut Normal 2.0-7.7 [facility] Comment on above: Result Comment: Canc elled via OM: Order cancelled - Patient discharged Performed By: #### L 500.2500, L100.0100 ####[facility] [address] [place], [address] HCT Normal 37-47 [facility] Comment on above: Result Comment: Canc elled via OM: Order cancelled - Patient discharged Performed By: #### L 500.2500, L100.0100 ####[facility] [address] [place], [address] HGB Normal 12.0-15.0 [facility] Comment on above: Result Comment: Canc elled via OM: Order cancelled - Patient discharged Performed By: #### L 500.2500, L100.0100 ####[facility] [address] [place], [address] MCH Normal 27.0-32.0 [facility] Comment on above: Result Comment: Canc elled via OM: Order cancelled - Patient discharged Performed By: #### L 500.2500, L100.0100 ####[facility] [address] [place], [address] MCHC Normal 32-36 [facility] Comment on above: Result Comment: Canc elled via OM: Order cancelled - Patient discharged Performed By: #### L 500.2500, L100.0100 ####[facility] [address] [place], [address] MCV Normal 81-99 [facility] Comment on above: Result Comment: Canc elled via OM: Order cancelled - Patient discharged Performed By: #### L 500.2500, L100.0100 ####[facility] [address] [place], [address] NEUT% Normal 47-70 [facility] Comment on above: Result Comment: Canc elled via OM: Order cancelled - Patient discharged Performed By: #### L 500.2500, L100.0100 ####[facility] [address] [place], [address] PLT Normal 150-450 [facility] Comment on above: Result Comment: Canc elled via OM: Order cancelled - Patient discharged Performed By: #### L 500.2500, L100.0100 ####[facility] [address] [place], [address] RBC Normal 4.2-5.4 [facility] Comment on above: Result Comment: Canc elled via OM: Order cancelled - Patient discharged Performed By: #### L 500.2500, L100.0100 ####[facility] [address] [place], [address] RDW CV Normal 11.6-14.6 [facility] Comment on above: Result Comment: Canc elled via OM: Order cancelled - Patient discharged Performed By: #### L 500.2500, L100.0100 ####[facility] [address] [place], [address] RDW SD Normal 35.1-43.9 [facility] Comment on above: Result Comment: Canc elled via OM: Order cancelled - Patient discharged Performed By: #### L 500.2500, L100.0100 ####[facility] [address] [place], [address] WBC Normal 4.4-11.0 [facility] Comment on above: Result Comment: Canc elled via OM: Order cancelled - Patient discharged Performed By: #### L 500.2500, L100.0100 ####[facility] [address] [place], [address] Automated blood hematocrit ( percentage)Ordered By: Harish Luis on 10-02-2024 Hematocrit (Bld) [Volume fraction] 31.2 % Low 37-47 [facility] Comment on above: Performed By: #### L 100.0600 ####[facility] [address] [place], [address] Basic Metabolic Profile (BMP )on 10-02-2024 BUN Normal 4-19 [facility] Comment on above: Result Comment: Canc elled via OM: Order cancelled - Patient discharged Performed By: #### L 100.0100, L500.2500 ####[facility] [address] [place], [address] BUN/CRE Normal 10-20 [facility] Comment on above: Result Comment: Canc elled via OM: Order cancelled - Patient discharged Performed By: #### L 100.0100, L500.2500 ####[facility] [address] [place], [address] Calcium Normal 7.6-11.0 [facility] Comment on above: Result Comment: Canc elled via OM: Order cancelled - Patient discharged Performed By: #### L 100.0100, L500.2500 ####[facility] [address] [place], [address] CL Normal 98-108 [facility] Comment on above: Result Comment: Canc elled via OM: Order cancelled - Patient discharged Performed By: #### L 100.0100, L500.2500 ####[facility] [address] [place], [address] CO2 Normal 21.0-32.0 [facility] Comment on above: Result Comment: Canc elled via OM: Order cancelled - Patient discharged Performed By: #### L 100.0100, L500.2500 ####[facility] [address] [place], [address] CREAT,SERUM Normal 0.70-1.20 [facility] Comment on above: Result Comment: Canc elled via OM: Order cancelled - Patient discharged Performed By: #### L 100.0100, L500.2500 ####[facility] [address] [place], [address] eGFR Normal >60 [facility] Comment on above: Result Comment: Canc elled via OM: Order cancelled - Patient discharged Performed By: #### L 100.0100, L500.2500 ####[facility] [address] [place], [address] GAP Normal 5-15 [facility] Comment on above: Result Comment: Canc elled via OM: Order cancelled - Patient discharged Performed By: #### L 100.0100, L500.2500 ####[facility] [address] [place], [address] GLU Normal 70-99 [facility] Comment on above: Result Comment: Canc elled via OM: Order cancelled - Patient discharged Performed By: #### L 100.0100, L500.2500 ####[facility] [address] [place], [address] Potassium Normal 3.3-5.1 [facility] Comment on above: Result Comment: Canc elled via OM: Order cancelled - Patient discharged Performed By: #### L 100.0100, L500.2500 ####[facility] [address] [place], [address] Basic Metabolic Profile (BMP) Normal 133-145 [facility] Comment on above: Result Comment: Canc elled via OM: Order cancelled - Patient discharged Performed By: #### L 100.0100, L500.2500 ####[facility] [address] [place], [address] CBC W/Diff, Automatedon 09-16 Absolute Neut Normal 2.0-7.7 [facility] Comment on above: Result Comment: Canc elled via OM: Order cancelled - Patient discharged Performed By: #### L 100.0100, L500.2500 ####[facility] [address] [place], [address] HCT Normal 37-47 [facility] Comment on above: Result Comment: Canc elled via OM: Order cancelled - Patient discharged Performed By: #### L 100.0100, L500.2500 ####[facility] [address] [place], [address] HGB Normal 12.0-15.0 [facility] Comment on above: Result Comment: Canc elled via OM: Order cancelled - Patient discharged Performed By: #### L 100.0100, L500.2500 ####[facility] [address] [place], [address] MCH Normal 27.0-32.0 [facility] Comment on above: Result Comment: Canc elled via OM: Order cancelled - Patient discharged Performed By: #### L 100.0100, L500.2500 ####[facility] [address] [place], [address] MCHC Normal 32-36 [facility] Comment on above: Result Comment: Canc elled via OM: Order cancelled - Patient discharged Performed By: #### L 100.0100, L500.2500 ####[facility] [address] [place], [address] MCV Normal 81-99 [facility] Comment on above: Result Comment: Canc elled via OM: Order cancelled - Patient discharged Performed By: #### L 100.0100, L500.2500 ####[facility] [address] [place], [address] NEUT% Normal 47-70 [facility] Comment on above: Result Comment: Canc elled via OM: Order cancelled - Patient discharged Performed By: #### L 100.0100, L500.2500 ####[facility] [address] [place], [address] PLT Normal 150-450 [facility] Comment on above: Result Comment: Canc elled via OM: Order cancelled - Patient discharged Performed By: #### L 100.0100, L500.2500 ####[facility] [address] [place], [address] RBC Normal 4.2-5.4 [facility] Comment on above: Result Comment: Canc elled via OM: Order cancelled - Patient discharged Performed By: #### L 100.0100, L500.2500 ####[facility] [address] [place], [address] RDW CV Normal 11.6-14.6 [facility] Comment on above: Result Comment: Canc elled via OM: Order cancelled - Patient discharged Performed By: #### L 100.0100, L500.2500 ####[facility] [address] [place], [address] RDW SD Normal 35.1-43.9 [facility] Comment on above: Result Comment: Canc elled via OM: Order cancelled - Patient discharged Performed By: #### L 100.0100, L500.2500 ####[facility] [address] [place], [address] WBC Normal 4.4-11.0 [facility] Comment on above: Result Comment: Canc elled via OM: Order cancelled - Patient discharged Performed By: #### L 100.0100, L500.2500 ####[facility] [address] [place], [address] Hemoglobin measurementOrdere d By: Harish Luis on 10-02-2024 Hemoglobin (Bld) [Mass/Vol] 10.0 g/dL Low 12.0-15.0 [facility] Comment on above: Performed By: #### L 100.0600 ####[facility] [address] [place], [address] Basic Metabolic Profile (BMP )on 10-01-2024 BUN Normal 4-19 [facility] Comment on above: Result Comment: Canc elled via OM: Order cancelled - Patient discharged Performed By: #### L 100.0100, L500.2500 ####[facility] [address] [place], [address] BUN/CRE Normal 10-20 [facility] Comment on above: Result Comment: Canc elled via OM: Order cancelled - Patient discharged Performed By: #### L 100.0100, L500.2500 ####[facility] [address] [place], [address] Calcium Normal 7.6-11.0 [facility] Comment on above: Result Comment: Canc elled via OM: Order cancelled - Patient discharged Performed By: #### L 100.0100, L500.2500 ####[facility] [address] [place], [address] CL Normal 98-108 [facility] Comment on above: Result Comment: Canc elled via OM: Order cancelled - Patient discharged Performed By: #### L 100.0100, L500.2500 ####[facility] [address] [place], [address] CO2 Normal 21.0-32.0 [facility] Comment on above: Result Comment: Canc elled via OM: Order cancelled - Patient discharged Performed By: #### L 100.0100, L500.2500 ####[facility] [address] [place], [address] CREAT,SERUM Normal 0.70-1.20 [facility] Comment on above: Result Comment: Canc elled via OM: Order cancelled - Patient discharged Performed By: #### L 100.0100, L500.2500 ####[facility] [address] [place], [address] eGFR Normal >60 [facility] Comment on above: Result Comment: Canc elled via OM: Order cancelled - Patient discharged Performed By: #### L 100.0100, L500.2500 ####[facility] [address] [place], [address] GAP Normal 5-15 [facility] Comment on above: Result Comment: Canc elled via OM: Order cancelled - Patient discharged Performed By: #### L 100.0100, L500.2500 ####[facility] [address] [place], [address] GLU Normal 70-99 [facility] Comment on above: Result Comment: Canc elled via OM: Order cancelled - Patient discharged Performed By: #### L 100.0100, L500.2500 ####[facility] [address] [place], [address] Potassium Normal 3.3-5.1 [facility] Comment on above: Result Comment: Canc elled via OM: Order cancelled - Patient discharged Performed By: #### L 100.0100, L500.2500 ####[facility] [address] [place], [address] Basic Metabolic Profile (BMP) Normal 133-145 [facility] Comment on above: Result Comment: Canc elled via OM: Order cancelled - Patient discharged Performed By: #### L 100.0100, L500.2500 ####[facility] [address] [place], [address] CBC W/Diff, Automatedon 07- Absolute Neut Normal 2.0-7.7 [facility] Comment on above: Result Comment: Canc elled via OM: Order cancelled - Patient discharged Performed By: #### L 100.0100, L500.2500 ####[facility] [address] [place], [address] HCT Normal 37-47 [facility] Comment on above: Result Comment: Canc elled via OM: Order cancelled - Patient discharged Performed By: #### L 100.0100, L500.2500 ####[facility] [address] [place], [address] HGB Normal 12.0-15.0 [facility] Comment on above: Result Comment: Canc elled via OM: Order cancelled - Patient discharged Performed By: #### L 100.0100, L500.2500 ####[facility] [address] [place], [address] MCH Normal 27.0-32.0 [facility] Comment on above: Result Comment: Canc elled via OM: Order cancelled - Patient discharged Performed By: #### L 100.0100, L500.2500 ####[facility] [address] [place], [address] MCHC Normal 32-36 [facility] Comment on above: Result Comment: Canc elled via OM: Order cancelled - Patient discharged Performed By: #### L 100.0100, L500.2500 ####[facility] [address] [place], [address] MCV Normal 81-99 [facility] Comment on above: Result Comment: Canc elled via OM: Order cancelled - Patient discharged Performed By: #### L 100.0100, L500.2500 ####[facility] [address] [place], [address] NEUT% Normal 47-70 [facility] Comment on above: Result Comment: Canc elled via OM: Order cancelled - Patient discharged Performed By: #### L 100.0100, L500.2500 ####[facility] [address] [place], [address] PLT Normal 150-450 [facility] Comment on above: Result Comment: Canc elled via OM: Order cancelled - Patient discharged Performed By: #### L 100.0100, L500.2500 ####[facility] [address] [place], [address] RBC Normal 4.2-5.4 [facility] Comment on above: Result Comment: Canc elled via OM: Order cancelled - Patient discharged Performed By: #### L 100.0100, L500.2500 ####[facility] [address] [place], [address] RDW CV Normal 11.6-14.6 [facility] Comment on above: Result Comment: Canc elled via OM: Order cancelled - Patient discharged Performed By: #### L 100.0100, L500.2500 ####[facility] [address] [place], [address] RDW SD Normal 35.1-43.9 [facility] Comment on above: Result Comment: Canc elled via OM: Order cancelled - Patient discharged Performed By: #### L 100.0100, L500.2500 ####[facility] [address] [place], [address] WBC Normal 4.4-11.0 [facility] Comment on above: Result Comment: Canc elled via OM: Order cancelled - Patient discharged Performed By: #### L 100.0100, L500.2500 ####[facility] [address] [place], [address] HH, Hemoglobin AND Hematocri ton 10-01-2024 Hematocrit (Bld) [Volume fraction] 30.1 % Low 37-47 [facility] Comment on above: Performed By: #### L 100.0600 ####[facility] [address] [place], [address] Hemoglobin (Bld) [Mass/Vol] 9.8 g/dL Low 12.0-15.0 [facility] Comment on above: Performed By: #### L 100.0600 ####[facility] [address] [place], [address] MR/CON.PCM.GIon 10-01-2024 MR/CON.PCM.GI Normal [facility] Modified Barium Swallow Stud yon 10-01-2024 Modified Barium Swallow Study Normal [facility] Absolute lymphocyte countOrd ered By: Harish Luis on 09-30-2024 Lymphocytes Auto (Unsp spec) [#/Vol] 1.68 10*3/uL 0.83-4.51 [facility] Anion gap in Serum or Plasma Ordered By: Harish Luis on 09-30-2024 Anion gap [Moles/Vol] 10 mmol/L 07-31 [facility] Automated lymphocyte count a s percentage of total leukocytesOrdered By: Harish Luis on 09-30-2024 Lymphocytes/100 WBC Auto (Unsp spec) 30.9 % [facility] BUN/creatinine ratioOrdered By: Harish Luis on 09-30-2024 Urea nitrogen/Creatinine [Mass ratio] 12.3 mg/mg 01-05 [facility] Basic Metabolic Profile (BMP )on 09-30-2024 BUN/CRE 12.3 RATIO Normal 01-05 [facility] Comment on above: Performed By: #### L 500.2500, L100.0100 ####[facility] [address] [place], [address] Calcium [Mass/Vol] 8.6 mg/dL Normal 7.6-11.0 [facility] Comment on above: Performed By: #### L 500.2500, L100.0100 ####[facility] [address] [place], [address] Chloride [Moles/Vol] 107 mmol/L Normal 98-108 [facility] Comment on above: Performed By: #### L 500.2500, L100.0100 ####[facility] [address] [place], [address] CO2 [Moles/Vol] 26.4 mmol/L Normal 21.0-32.0 [facility] Comment on above: Performed By: #### L 500.2500, L100.0100 ####[facility] [address] [place], [address] Creatinine [Mass/Vol] 0.76 mg/dL Normal 0.70-1.20 [facility] Comment on above: Performed By: #### L 500.2500, L100.0100 ####[facility] [address] [place], [address] ECRCL 43.63 ml/min Low 50-250 [facility] Comment on above: Performed By: #### L 500.2500, L100.0100 ####[facility] [address] [place], [address] GAP 10 Normal 5-15 [facility] Comment on above: Performed By: #### L 500.2500, L100.0100 ####[facility] [address] [place], [address] GFR/1.73 sq M.predicted among non-blacks MDRD (S/P/Bld) [Vol rate/Area] 83 mL/min/{1.73_m2} Normal >60 [facility] Comment on above: Result Comment: mL/m in/1.73m2 CKD-EPI Creatinine Equation (2020) Performed By: #### L 500.2500, L100.0100 ####[facility] [address] [place], [address] Glucose [Mass/Vol] 106 mg/dL High 70-99 [facility] Comment on above: Performed By: #### L 500.2500, L100.0100 ####[facility] [address] [place], [address] Potassium [Moles/Vol] 3.4 mmol/L Normal 3.3-5.1 [facility] Comment on above: Performed By: #### L 500.2500, L100.0100 ####[facility] [address] [place], [address] Sodium [Moles/Vol] 143 mmol/L Normal 133-145 [facility] Comment on above: Performed By: #### L 500.2500, L100.0100 ####[facility] [address] [place], [address] Urea nitrogen [Mass/Vol] 9 mg/dL Normal 4-19 [facility] Comment on above: Performed By: #### L 500.2500, L100.0100 ####[facility] [address] [place], [address] Basophil percentageOrdered B y: Harish Ramírezok on 09-30-2024 Basophils/100 WBC (Bld) 0.7 % 0-1 [facility] CBC W/Diff, Automatedon 09-16 Absolute Neut Normal 2.0-7.7 [facility] Comment on above: Result Comment: Canc elled via OM: Order cancelled - Patient discharged Performed By: #### L 100.0100 ####[facility] [address] [place], [address] HCT Normal 37-47 [facility] Comment on above: Result Comment: Canc elled via OM: Order cancelled - Patient discharged Performed By: #### L 100.0100 ####[facility] [address] [place], [address] HGB Normal 12.0-15.0 [facility] Comment on above: Result Comment: Canc elled via OM: Order cancelled - Patient discharged Performed By: #### L 100.0100 ####[facility] [address] [place], [address] MCH Normal 27.0-32.0 [facility] Comment on above: Result Comment: Canc elled via OM: Order cancelled - Patient discharged Performed By: #### L 100.0100 ####[facility] [address] [place], [address] MCHC Normal 32-36 [facility] Comment on above: Result Comment: Canc elled via OM: Order cancelled - Patient discharged Performed By: #### L 100.0100 ####[facility] [address] [place], [address] MCV Normal 81-99 [facility] Comment on above: Result Comment: Canc elled via OM: Order cancelled - Patient discharged Performed By: #### L 100.0100 ####[facility] [address] [place], [address] NEUT% Normal 47-70 [facility] Comment on above: Result Comment: Canc elled via OM: Order cancelled - Patient discharged Performed By: #### L 100.0100 ####[facility] [address] [place], [address] PLT Normal 150-450 [facility] Comment on above: Result Comment: Canc elled via OM: Order cancelled - Patient discharged Performed By: #### L 100.0100 ####[facility] [address] [place], [address] RBC Normal 4.2-5.4 [facility] Comment on above: Result Comment: Canc elled via OM: Order cancelled - Patient discharged Performed By: #### L 100.0100 ####[facility] [address] [place], [address] RDW CV Normal 11.6-14.6 [facility] Comment on above: Result Comment: Canc elled via OM: Order cancelled - Patient discharged Performed By: #### L 100.0100 ####[facility] [address] [place], [address] RDW SD Normal 35.1-43.9 [facility] Comment on above: Result Comment: Canc elled via OM: Order cancelled - Patient discharged Performed By: #### L 100.0100 ####[facility] [address] [place], [address] WBC Normal 4.4-11.0 [facility] Comment on above: Result Comment: Canc elled via OM: Order cancelled - Patient discharged Performed By: #### L 100.0100 ####[facility] [address] [place], [address] Absolute Lymph 1.68 X10 3/uL Normal 0.83-4.51 [facility] Comment on above: Performed By: #### L 500.2500, L100.0100 ####[facility] [address] [place], [address] Absolute Neut 3.0 X10 3/uL Normal 2.0-7.7 [facility] Comment on above: Performed By: #### L 500.2500, L100.0100 ####[facility] [address] [place], [address] Basophils/100 WBC (Bld) 0.7 % Normal 0-1 [facility] Comment on above: Performed By: #### L 500.2500, L100.0100 ####[facility] [address] [place], [address] Eosinophils/100 WBC (Bld) 3.9 % Normal 0-5 [facility] Comment on above: Performed By: #### L 500.2500, L100.0100 ####[facility] [address] [place], [address] Erythrocyte distribution width (RBC) [Ratio] 14.1 % Normal 11.6-14.6 [facility] Comment on above: Performed By: #### L 500.2500, L100.0100 ####[facility] [address] [place], [address] Hematocrit (Bld) [Volume fraction] 28.9 % Low 37-47 [facility] Comment on above: Performed By: #### L 500.2500, L100.0100 ####[facility] [address] [place], [address] Hemoglobin (Bld) [Mass/Vol] 9.6 g/dL Low 12.0-15.0 [facility] Comment on above: Performed By: #### L 500.2500, L100.0100 ####[facility] [address] [place], [address] IG% 0.400 Normal 0.0-0.9 [facility] Comment on above: Result Comment: IG% - Immature Granulocytes (promyelocytes, myelocytes andmetamyelocytes) > 1% indicates that a LEFT SHIFT is Present. Performed By: #### L 500.2500, L100.0100 ####[facility] [address] [place], [address] Lymphocytes/100 WBC (Bld) 30.9 % Normal 19-41 [facility] Comment on above: Performed By: #### L 500.2500, L100.0100 ####[facility] [address] [place], [address] MCH (RBC) [Entitic mass] 31.3 pg Normal 27.0-32.0 [facility] Comment on above: Performed By: #### L 500.2500, L100.0100 ####[facility] [address] [place], [address] MCHC (RBC) [Mass/Vol] 33.2 g/dL Normal 32-36 [facility] Comment on above: Performed By: #### L 500.2500, L100.0100 ####[facility] [address] [place], [address] MCV (RBC) [Entitic vol] 94.1 fL Normal 81-99 [facility] [place] [facility] Comment on above: Performed By: #### L 500.2500, L100.0100 ####[facility] [address] [place], [address] Monocytes/100 WBC (Bld) 8.7 % Normal 0-10 [facility] Comment on above: Performed By: #### L 500.2500, L100.0100 ####[facility] [address] [place], [address] Neutrophils/100 WBC (Bld) 55.4 % Normal 47-70 [facility] Comment on above: Performed By: #### L 500.2500, L100.0100 ####[facility] [address] [place], [address] Nucleated RBC (Bld) [#/Vol] 0 10*3/uL Normal 0-5 [facility] Comment on above: Performed By: #### L 500.2500, L100.0100 ####[facility] [address] [place], [address] Platelet mean volume (Bld) [Entitic vol] 9.4 fL Normal 6.2-12.0 [facility] Comment on above: Performed By: #### L 500.2500, L100.0100 ####[facility] [address] [place], [address] Platelets (Bld) [#/Vol] 468 10*3/uL High 150-450 [facility] Comment on above: Performed By: #### L 500.2500, L100.0100 ####[facility] [address] [place], [address] RBC (Bld) [#/Vol] 3.07 10*6/uL Low 4.2-5.4 [facility] Comment on above: Performed By: #### L 500.2500, L100.0100 ####[facility] [address] [place], [address] RDW SD 48.4 fl High 35.1-43.9 [facility] Comment on above: Performed By: #### L 500.2500, L100.0100 ####[facility] [address] [place], [address] WBC (Bld) [#/Vol] 5.4 10*3/uL Normal 4.4-11.0 [facility] Comment on above: Performed By: #### L 500.2500, L100.0100 ####[facility] [address] [place], [address] Carbon dioxide, total [Moles /volume] in Central venous bloodOrdered By: Harish Luis on 09-30-2024 CO2 [Moles/Vol] 26.4 mmol/L 21.0-32.0 [facility] Chloride assayOrdered By: Levar Luis on 09-30-2024 Chloride [Moles/Vol] 107 mmol/L 98-108 [facility] Eosinophil percentageOrdered By: Harish Luis on 09-30-2024 Eosinophils/100 WBC (Bld) 3.9 % 0-5 [facility] Erythrocyte distribution wid th ratioOrdered By: Harish Toby on 09-30-2024 Erythrocyte distribution width (RBC) [Ratio] 14.1 % 11.6-14.6 [facility] Erythrocyte distribution wid th standard deviationOrdered By: Harish Toby on 09-30-2024 Erythrocyte distribution width (RBC) [Ratio] 48.4 fl High 35.1-43.9 [facility] Glomerular filtration rate ( GFR) estimation/1.73 sq m using serum, plasma, or whole bOrdered By: Harish Luis on 09-30-2024 GFR/1.73 sq M.predicted among non-blacks MDRD (S/P/Bld) [Vol rate/Area] 83 mL/min/{1.73_m2} >60 [facility] Immature granulocytes/100 WB C Auto (Bld)Ordered By: Harish Luis on 09-30-2024 Immature granulocytes/100 WBC (Bld) 0.400 % 0.0-0.9 [facility] Iron measurement (mass/mass) Ordered By: Harish Luis on 09-30-2024 Iron (Unsp spec) [Mass/Mass] 37 ug/dL Low 50-170 [facility] Iron+Iron Binding Capacityon 09-30-2024 TIBC 183 ug/dL Low 250-450 [facility] Comment on above: Performed By: #### L 503.6030 ####[facility] [address] [place], [address] MCV (mean corpuscular volume ) determinationOrdered By: Harish Luis on 09-30-2024 MCV (RBC) [Entitic vol] 94.1 fL 81-99 [facility] Mean corpuscular hemoglobin (MCH) determinationOrdered By: [facility] MCH (RBC) [Entitic mass] 31.3 pg 27.0-32.0 [facility] Monocyte percentageOrdered B y: Harish Luis on 09-30-2024 Monocytes/100 WBC (Bld) 8.7 % 0-10 [facility] Neutrophil percentageOrdered By: [facility] on 09-30-2024 Neutrophils/100 WBC (Bld) 55.4 % 47-70 [facility] No Panel InformationOrdered By: Harish Luis on 09-30-2024 146 ug/dL Low 228-428 [facility] Platelet countOrdered By: Levar Luis on 09-30-2024 Platelets (Bld) [#/Vol] 468 10*3/uL High 150-450 [facility] Potassium measurement (mass/ volume)Ordered By: Harish Luis on 09-30-2024 Potassium (Unsp spec) [Mass/Vol] 3.4 mmol/L 3.3-5.1 [facility] RBC Auto (Bld) [#/Vol]Ordere d By: Harish Luis on 09-30-2024 RBC (Bld) [#/Vol] 3.07 10*6/uL Low 4.2-5.4 [facility] Serum creatinine measurement (mass/volume)Ordered By: Harish Luis on 09-30-2024 Creatinine [Mass/Vol] 0.76 mg/dL 0.70-1.20 [facility] Serum glucose measurement (m ass/volume)Ordered By: Harish Luis on 09-30-2024 Glucose [Mass/Vol] 106 mg/dL High 70-99 [facility] Serum or plasma calcium rosangela urement (mass/volume)Ordered By: Harish Luis on 09-30-2024 Calcium [Mass/Vol] 8.6 mg/dL 7.6-11.0 [facility] Serum or plasma iron saturat ion measurement (mass fraction)Ordered By: Harish Luis on 09-30-2024 Iron saturation [Mass fraction] 20.2 % 13-59 [facility] Serum or plasma urea nitroge n measurement (mass/volume)Ordered By: Harish Luis on 09-30-2024 Urea nitrogen [Mass/Vol] 9 mg/dL 4-19 [facility] Sodium levelOrdered By: Hraish Luis on 09-30-2024 Sodium [Moles/Vol] 143 mmol/L 133-145 [facility] Stool Occult Blood iFOBon STOB Negative Normal [facility] Comment on above: Performed By: #### M 100.7900 ####[facility] [address] [place], [place], [id number] Stool gastrointestinal hemog lobin detection by immunologic methodOrdered By: Harish Luis on 09-30-2024 Lower GI hemoglobin IA Ql (Stl) [facility] White blood cell (WBC) count Ordered By: Harish Luis on 09-30-2024 WBC (Bld) [#/Vol] 5.4 10*3/uL 4.4-11.0 [facility] Absolute lymphocyte countOrd ered By: Anastasia Khan on 09-29-2024 Lymphocytes Auto (Unsp spec) [#/Vol] 1.68 10*3/uL 0.83-4.51 [facility] Absolute neutrophil countOrd ered By: Anastasia Khan on 09-29-2024 Neutrophils (Bld) [#/Vol] 2.2 10*3/uL 2.0-7.7 [facility] Anion gap in Serum or Plasma Ordered By: Anastasia Khan on 09-29-2024 Anion gap [Moles/Vol] 9 mmol/L - [facility] BUN/creatinine ratioOrdered By: Anastasia Khan on 09-29-2024 Urea nitrogen/Creatinine [Mass ratio] 11.6 mg/mg 10-20 [facility] Basophil percentageOrdered B y: Anastasia Khan on 09-29-2024 Basophils/100 WBC (Bld) 0.9 % 0-1 [facility] Bilirubin, totalOrdered By: Anastasia Khan on 09-29-2024 Bilirubin [Mass/Vol] 0.19 mg/dL 0.00-1.30 [facility] Blood platelets count (numbe r/volume)Ordered By: Anastasia Khan on 09-29-2024 Platelets (Bld) [#/Vol] 426 10*3/uL 150-450 [facility] CBC W/Diff, Automatedon 09-16 Absolute Lymph 1.68 X10 3/uL Normal 0.83-4.51 [facility] Comment on above: Performed By: #### L 100.0100, L500.1860 ####[facility] [address] [place], [address] Absolute Neut 2.2 X10 3/uL Normal 2.0-7.7 [facility] Comment on above: Performed By: #### L 100.0100, L500.4050 ####[facility] [address] [place], [address] Basophils/100 WBC (Bld) 0.9 % Normal 0-1 [facility] Comment on above: Performed By: #### L 100.0100, L500.4050 ####[facility] [address] [place], [address] Eosinophils/100 WBC (Bld) 5.4 % High 0-5 [facility] Comment on above: Performed By: #### L 100.0100, L500.4050 ####[facility] [address] [place], [address] IG% 0.400 Normal 0.0-0.9 [facility] Comment on above: Result Comment: IG% - Immature Granulocytes (promyelocytes, myelocytes andmetamyelocytes) > 1% indicates that a LEFT SHIFT is Present. Performed By: #### L 100.0100, L500.4050 ####[facility] [address] [place], [address] Lymphocytes/100 WBC (Bld) 36.5 % Normal 19-41 [facility] Comment on above: Performed By: #### L 100.0100, L500.4050 ####[facility] [address] [place], [address] Monocytes/100 WBC (Bld) 9.3 % Normal 0-10 [facility] Comment on above: Performed By: #### L 100.0100, L500.4050 ####[facility] [address] [place], [address] Neutrophils/100 WBC (Bld) 47.5 % Normal 47-70 [facility] Comment on above: Performed By: #### L 100.0100, L500.4050 ####[facility] [address] [place], [address] Platelet mean volume (Bld) [Entitic vol] 9.7 fL Normal 6.2-12.0 [facility] Comment on above: Performed By: #### L 100.0100, L500.4050 ####[facility] [address] [place], [address] Platelets (Bld) [#/Vol] 426 10*3/uL Normal 150-450 [facility] Comment on above: Performed By: #### L 100.0100, L500.4050 ####[facility] [address] [place], [address] RDW SD 48.3 fl High 35.1-43.9 [facility] Comment on above: Performed By: #### L 100.0100, L500.4050 ####[facility] [address] [place], [address] Erythrocyte distribution width (RBC) [Ratio] 14.0 % Normal 11.6-14.6 [facility] Comment on above: Performed By: #### L 100.0100, L500.4050 ####[facility] [address] [place], [address] Hematocrit (Bld) [Volume fraction] 29.1 % Low 37-47 [facility] Comment on above: Performed By: #### L 100.0100, L500.4050 ####[facility] [address] [place], [address] Hemoglobin (Bld) [Mass/Vol] 9.5 g/dL Low 12.0-15.0 [facility] Comment on above: Performed By: #### L 100.0100, L500.4050 ####[facility] [address] [place], [address] MCH (RBC) [Entitic mass] 31.0 pg Normal 27.0-32.0 [facility] Comment on above: Performed By: #### L 100.0100, L500.4050 ####[facility] [address] [place], [address] MCHC (RBC) [Mass/Vol] 32.6 g/dL Normal 32-36 [facility] Comment on above: Performed By: #### L 100.0100, L500.4050 ####[facility] [address] [place], [address] MCV (RBC) [Entitic vol] 95.1 fL Normal 81-99 [facility] [place] [facility] Comment on above: Performed By: #### L 100.0100, L500.4050 ####[facility] [address] [place], [address] RBC (Bld) [#/Vol] 3.06 10*6/uL Low 4.2-5.4 [facility] Comment on above: Performed By: #### L 100.0100, L500.4050 ####[facility] [address] [place], [address] WBC (Bld) [#/Vol] 4.6 10*3/uL Normal 4.4-11.0 [facility] Comment on above: Performed By: #### L 100.0100, L500.4050 ####[facility] [address] [place], [address] Absolute Neut Normal 2.0-7.7 [facility] Comment on above: Result Comment: Canc elled via OM: Order cancelled - Patient discharged Performed By: #### L 500.4050, L100.0100 ####[facility] [address] [place], [address] HCT Normal 37-47 [facility] Comment on above: Result Comment: Canc elled via OM: Order cancelled - Patient discharged Performed By: #### L 500.4050, L100.0100 ####[facility] [address] [place], [address] HGB Normal 12.0-15.0 [facility] Comment on above: Result Comment: Canc elled via OM: Order cancelled - Patient discharged Performed By: #### L 500.4050, L100.0100 ####[facility] [address] [place], [address] MCH Normal 27.0-32.0 [facility] Comment on above: Result Comment: Canc elled via OM: Order cancelled - Patient discharged Performed By: #### L 500.4050, L100.0100 ####[facility] [address] [place], [address] MCHC Normal 32-36 [facility] Comment on above: Result Comment: Canc elled via OM: Order cancelled - Patient discharged Performed By: #### L 500.4050, L100.0100 ####[facility] [address] [place], [address] MCV Normal 81-99 [facility] Comment on above: Result Comment: Canc elled via OM: Order cancelled - Patient discharged Performed By: #### L 500.4050, L100.0100 ####[facility] [address] [place], [address] NEUT% Normal 47-70 [facility] Comment on above: Result Comment: Canc elled via OM: Order cancelled - Patient discharged Performed By: #### L 500.4050, L100.0100 ####[facility] [address] [place], [address] PLT Normal 150-450 [facility] Comment on above: Result Comment: Canc elled via OM: Order cancelled - Patient discharged Performed By: #### L 500.4050, L100.0100 ####[facility] [address] [place], [address] RBC Normal 4.2-5.4 [facility] Comment on above: Result Comment: Canc elled via OM: Order cancelled - Patient discharged Performed By: #### L 500.4050, L100.0100 ####[facility] [address] [place], [address] RDW CV Normal 11.6-14.6 [facility] Comment on above: Result Comment: Canc elled via OM: Order cancelled - Patient discharged Performed By: #### L 500.4050, L100.0100 ####[facility] [address] [place], [address] RDW SD Normal 35.1-43.9 [facility] Comment on above: Result Comment: Canc elled via OM: Order cancelled - Patient discharged Performed By: #### L 500.4050, L100.0100 ####[facility] [address] [place], [address] WBC Normal 4.4-11.0 [facility] Comment on above: Result Comment: Canc elled via OM: Order cancelled - Patient discharged Performed By: #### L 500.4050, L100.0100 ####[facility] [address] [place], [address] Carbon dioxide, total [Moles /volume] in Central venous bloodOrdered By: Anastasia Khan on 09-29-2024 CO2 [Moles/Vol] 23.3 mmol/L 21.0-32.0 [facility] Chloride assayOrdered By: Kita Khan on 09-29-2024 Chloride [Moles/Vol] 110 mmol/L High 98-108 [facility] Comprehensive Metabolic Prof ilon 09-29-2024 Albumin [Mass/Vol] 2.5 g/dL Low 3.4-4.8 [facility] Comment on above: Performed By: #### L 100.0100, L500.4050 ####[facility] [address] [place], [address] Albumin/Globulin [Mass ratio] 0.9 {ratio} Normal 0.9-2.4 [facility] Comment on above: Performed By: #### L 100.0100, L500.4050 ####[facility] [address] [place], [address] ALK PHOS 80 U/L Normal 35-104 [facility] Comment on above: Performed By: #### L 100.0100, L500.4050 ####[facility] [address] [place], [address] ALT [Catalytic activity/Vol] 12 U/L Normal <=34 [facility] Comment on above: Performed By: #### L 100.0100, L500.4050 ####[facility] [address] [place], [address] AST [Catalytic activity/Vol] 26 U/L Normal <=31 [facility] Comment on above: Performed By: #### L 100.0100, L500.4050 ####[facility] [address] [place], [address] Bilirubin [Mass/Vol] 0.19 mg/dL Normal 0.00-1.30 [facility] Comment on above: Performed By: #### L 100.0100, L500.4050 ####[facility] [address] [place], [address] BUN/CRE 11.6 RATIO Normal 10-20 [facility] Comment on above: Performed By: #### L 100.0100, L500.4050 ####[facility] [address] [place], [address] Calcium [Mass/Vol] 8.6 mg/dL Normal 7.6-11.0 [facility] Comment on above: Performed By: #### L 100.0100, L500.4050 ####[facility] [address] [place], [address] Chloride [Moles/Vol] 110 mmol/L High 98-108 [facility] Comment on above: Performed By: #### L 100.0100, L500.4050 ####[facility] [address] [place], [address] CO2 [Moles/Vol] 23.3 mmol/L Normal 21.0-32.0 [facility] Comment on above: Performed By: #### L 100.0100, L500.4050 ####[facility] [address] [place], [address] Creatinine [Mass/Vol] 0.75 mg/dL Normal 0.70-1.20 [facility] Comment on above: Performed By: #### L 100.0100, L500.4050 ####[facility] [address] [place], [address] ECRCL 46.56 ml/min Low 50-250 [facility] Comment on above: Performed By: #### L 100.0100, L500.4050 ####[facility] [address] [place], [address] GAP 9 Normal 5-15 [facility] Comment on above: Performed By: #### L 100.0100, L500.4050 ####[facility] [address] [place], [address] GFR/1.73 sq M.predicted among non-blacks MDRD (S/P/Bld) [Vol rate/Area] 83 mL/min/{1.73_m2} Normal >60 [facility] Comment on above: Result Comment: mL/m in/1.73m2 CKD-EPI Creatinine Equation (2020) Performed By: #### L 100.0100, L500.4050 ####[facility] [address] [place], [address] Globulin (S) [Mass/Vol] 2.8 g/dL Normal 2.2-4.2 [facility] Comment on above: Performed By: #### L 100.0100, L500.4050 ####[facility] [address] [place], [address] Glucose [Mass/Vol] 86 mg/dL Normal 70-99 [facility] Comment on above: Performed By: #### L 100.0100, L500.4050 ####[facility] [address] [place], [address] Potassium [Moles/Vol] 3.7 mmol/L Normal 3.3-5.1 [facility] Comment on above: Performed By: #### L 100.0100, L500.4050 ####[facility] [address] [place], [address] Sodium [Moles/Vol] 142 mmol/L Normal 133-145 [facility] Comment on above: Performed By: #### L 100.0100, L500.4050 ####[facility] [address] [place], [address] T PROT 5.3 g/dL Low 5.9-8.4 [facility] Comment on above: Performed By: #### L 100.0100, L500.4050 ####[facility] [address] [place], [address] Urea nitrogen [Mass/Vol] 9 mg/dL Normal 4-19 [facility] Comment on above: Performed By: #### L 100.0100, L500.4050 ####[facility] [address] [place], [address] ALB Normal 3.4-4.8 [facility] Comment on above: Result Comment: Canc elled via OM: Order cancelled - Patient discharged Performed By: #### L 500.4050, L100.0100 ####[facility] [facility] [address] [place], [address] ALK PHOS Normal 35-104 [facility] Comment on above: Result Comment: Canc elled via OM: Order cancelled - Patient discharged Performed By: #### L 500.4050, L100.0100 ####[facility] [address] [place], [address] ALT Normal <=34 [facility] Comment on above: Result Comment: Canc elled via OM: Order cancelled - Patient discharged Performed By: #### L 500.4050, L100.0100 ####[facility] [address] [place], [address] AST Normal <=31 [facility] Comment on above: Result Comment: Canc elled via OM: Order cancelled - Patient discharged Performed By: #### L 500.4050, L100.0100 ####[facility] [address] [place], [address] BUN Normal 4-19 [facility] Comment on above: Result Comment: Canc elled via OM: Order cancelled - Patient discharged Performed By: #### L 500.4050, L100.0100 ####[facility] [address] [place], [address] BUN/CRE Normal 10-20 [facility] Comment on above: Result Comment: Canc elled via OM: Order cancelled - Patient discharged Performed By: #### L 500.4050, L100.0100 ####[facility] [address] [place], [address] Calcium Normal 7.6-11.0 [facility] Comment on above: Result Comment: Canc elled via OM: Order cancelled - Patient discharged Performed By: #### L 500.4050, L100.0100 ####[facility] [address] [place], [address] CL Normal 98-108 [facility] Comment on above: Result Comment: Canc elled via OM: Order cancelled - Patient discharged Performed By: #### L 500.4050, L100.0100 ####[facility] [address] [place], [address] CO2 Normal 21.0-32.0 [facility] Comment on above: Result Comment: Canc elled via OM: Order cancelled - Patient discharged Performed By: #### L 500.4050, L100.0100 ####[facility] [address] [place], [address] CREAT,SERUM Normal 0.70-1.20 [facility] Comment on above: Result Comment: Canc elled via OM: Order cancelled - Patient discharged Performed By: #### L 500.4050, L100.0100 ####[facility] [address] [place], [address] eGFR Normal >60 [facility] Comment on above: Result Comment: Canc elled via OM: Order cancelled - Patient discharged Performed By: #### L 500.4050, L100.0100 ####[facility] [address] [place], [address] GAP Normal 5-15 [facility] Comment on above: Result Comment: Canc elled via OM: Order cancelled - Patient discharged Performed By: #### L 500.4050, L100.0100 ####[facility] [address] [place], [address] GLU Normal 70-99 [facility] Comment on above: Result Comment: Canc elled via OM: Order cancelled - Patient discharged Performed By: #### L 500.4050, L100.0100 ####[facility] [address] [place], [address] Potassium Normal 3.3-5.1 [facility] Comment on above: Result Comment: Canc elled via OM: Order cancelled - Patient discharged Performed By: #### L 500.4050, L100.0100 ####[facility] [address] [place], [address] T BILI Normal 0.00-1.30 [facility] Comment on above: Result Comment: Canc elled via OM: Order cancelled - Patient discharged Performed By: #### L 500.4050, L100.0100 ####[facility] [address] [place], [address] T PROT Normal 5.9-8.4 [facility] Comment on above: Result Comment: Canc elled via OM: Order cancelled - Patient discharged Performed By: #### L 500.4050, L100.0100 ####[facility] [address] [place], [address] Comprehensive Metabolic Profil Normal 133-145 [facility] Comment on above: Result Comment: Canc elled via OM: Order cancelled - Patient discharged Performed By: #### L 500.4050, L100.0100 ####[facility] [address] [place], [address] Electrocardiogram reportOrde red By: Jose Renee on 09-29-2024 EKG study [facility] [address] [place] [address] 12 Lead EKG 09/27/24 1257 MR#: [id number] Acct: [id number] Name: CAROL DAVID Ebonie Rep #:[id number] : 1950 74 From: Jose Renee MD Attending Dr: Dr. Ricardo Padilla MD Status: ADM IN Ordering Dr: Dimitry Rosales DO Date: 03/12 Location: MS3 Sex: F C Admitted: 09/27/24 Test Reason : FALL/WEAKNESS Blood Pressure : */* mmHG Vent. Rate : 84 BPM Atrial Rate : 84 BPM P-R Int : 146 ms QRS Dur : 78 ms QT Int : 396 ms P-R-T Axes : 40 9 64 degrees QTcB Int : 467 ms Normal sinus rhythm Normal ECG Confirmed by JOSE RENEE MD ([id number]), editor farm journal KRISTA KINNEY ([id number]) on 09/29/2024 11:31:38 AM Referred By: Confirmed By: JOSE RENEE MD 09/29/24 1131 Date _ Jose Renee MD CC: Dr. Ricardo Padilla MD; Dr. Dimitry Rosales DO; Dr. Harish Luis MD ~ Signed [facility] Other Phone: Eosinophil %Ordered By: Capri Khan on 09-29-2024 Eosinophils/100 WBC (Bld) 5.4 % High 0-5 [facility] Erythrocyte distribution wid th ratioOrdered By: Anastasia Khan on 09-29-2024 Erythrocyte distribution width (RBC) [Ratio] 14.0 % 11.6-14.6 [facility] Glomerular filtration rate ( GFR) estimation/1.73 sq m using serum, plasma, or whole bOrdered By: Anastasia Khan on 09-29-2024 GFR/1.73 sq M.predicted among non-blacks MDRD (S/P/Bld) [Vol rate/Area] 83 mL/min/{1.73_m2} >60 [facility] Comment on above: mL/min/1.73m2 CKD-EP I Creatinine Equation (2020) Hematocrit Auto (Bld) [Volum e fraction]Ordered By: Anastasia Khan on 09-29-2024 Hematocrit (Bld) [Volume fraction] 29.1 % Low 37-47 [facility] Hemoglobin measurementOrdere d By: Anastasia Khan on 09-29-2024 Hemoglobin (Bld) [Mass/Vol] 9.5 g/dL Low 12.0-15.0 [facility] Immature granulocyte percent ageOrdered By: Anastasia Khan on 09-29-2024 Immature granulocytes/100 WBC (Bld) 0.400 % 0.0-0.9 [facility] Comment on above: IG% - Immature Granu locytes (promyelocytes, myelocytes and metamyelocytes) > 1% indicates that a LEFT SHIFT is Present. Laboratory - Chemistry and C hemistry - challengeOrdered By: Anastasia Khna on 09-29-2024 AST [Catalytic activity/Vol] 26 U/L <32 [facility] Lymphocyte %Ordered By: Capri Khan on 09-29-2024 Lymphocytes/100 WBC (Bld) 36.5 % 19-41 [facility] MCV (mean corpuscular volume ) determinationOrdered By: Anastasia Erin on 09-29-2024 MCV (RBC) [Entitic vol] 95.1 fL 81-99 [facility] Mean corpuscular hemoglobin (MCH) determinationOrdered By: Erin on 09-29-2024 MCH (RBC) [Entitic mass] 31.0 pg 27.0-32.0 [facility] Mean corpuscular hemoglobin concentration (MCHC) determinationOrdered By: Anastasia Erin 09-29-2024 MCHC (RBC) [Mass/Vol] 32.6 g/dL 32-36 [facility] Mean platelet volume determi nationOrdered By: Anastasia Erin on 09-29-2024 Platelet mean volume (Bld) [Entitic vol] 9.7 fL 6.2-12.0 [facility] Monocyte percentageOrdered B y: Erin on 09-29-2024 Monocytes/100 WBC (Bld) 9.3 % 0-10 [facility] Neutrophil %Ordered By: Capri Khan on 09-29-2024 Neutrophils/100 WBC (Bld) 47.5 % 47-70 [facility] No Panel InformationOrdered By: Anastasia Erin on 09-29-2024 26 U/L <32 [facility] Potassium measurement (mass/ volume)Ordered By: Anastasia Erin on 09-29-2024 Potassium (Unsp spec) [Mass/Vol] 3.7 mmol/L 3.3-5.1 [facility] RBC Auto (Bld) [#/Vol]Ordere d By: Anastasia Erin on 09-29-2024 RBC (Bld) [#/Vol] 3.06 10*6/uL Low 4.2-5.4 [facility] RDWOrdered By: Anastasia Khan on 09-29-2024 RDW 48.3 fl High 35.1-43.9 [facility] Serum creatinine measurement (mass/volume)Ordered By: Anastasia Khan on 09-29-2024 Creatinine [Mass/Vol] 0.75 mg/dL 0.70-1.20 [facility] Serum globulin measurementOr dered By: Anastasia Khan on 09-29-2024 Globulin (S) [Mass/Vol] 2.8 g/dL 2.2-4.2 [facility] Serum glucose measurement (m ass/volume)Ordered By: Anastasia Khan on 09-29-2024 Glucose [Mass/Vol] 86 mg/dL 70-99 [facility] Serum or plasma alanine soliz otransferase (ALT) measurementOrdered By: Anastasia Khan on 09-29-2024 ALT [Catalytic activity/Vol] 12 U/L <35 [facility] Serum or plasma albumin rosangela urement (mass/volume)Ordered By: Anastasia Khan on 09-29-2024 Albumin [Mass/Vol] 2.5 g/dL Low 3.4-4.8 [facility] Serum or plasma albumin/glob ulin mass ratioOrdered By: Anastasia Khan on 09-29-2024 Albumin/Globulin [Mass ratio] 0.9 {ratio} 0.9-2.4 [facility] Serum or plasma alkaline faustino sphatase measurementOrdered By: Anastasia Khan on 09-29-2024 ALP [Catalytic activity/Vol] 80 U/L 35-104 [facility] Serum or plasma calcium rosangela urement (mass/volume)Ordered By: Anastasia Khan on 09-29-2024 Calcium [Mass/Vol] 8.6 mg/dL 7.6-11.0 [facility] Serum or plasma urea nitroge n measurement (mass/volume)Ordered By: Anastasia Khan on 09-29-2024 Urea nitrogen [Mass/Vol] 9 mg/dL 4-19 [facility] Sodium levelOrdered By: Capri mn Erin on 09-29-2024 Sodium [Moles/Vol] 142 mmol/L 133-145 [facility] Total proteinOrdered By: Fransisco umn Erin on 09-29-2024 Protein [Mass/Vol] 5.3 g/dL Low 5.9-8.4 [facility] White blood cell (WBC) count Ordered By: Anastasia Khan on 09-29-2024 WBC (Bld) [#/Vol] 4.6 10*3/uL 4.4-11.0 [facility] CBC W/Diff, Automatedon 09-16 Absolute Neut Normal 2.0-7.7 [facility] Comment on above: Result Comment: Canc elled via OM: Order cancelled - Patient discharged Performed By: #### L 500.4050, L100.0100 ####[facility] [address] [place], [address] HCT Normal 37-47 [facility] Comment on above: Result Comment: Canc elled via OM: Order cancelled - Patient discharged Performed By: #### L 500.4050, L100.0100 ####[facility] [address] [place], [address] HGB Normal 12.0-15.0 [facility] Comment on above: Result Comment: Canc elled via OM: Order cancelled - Patient discharged Performed By: #### L 500.4050, L100.0100 ####[facility] [address] [place], [address] MCH Normal 27.0-32.0 [facility] Comment on above: Result Comment: Canc elled via OM: Order cancelled - Patient discharged Performed By: #### L 500.4050, L100.0100 ####[facility] [address] [place], [address] MCHC Normal 32-36 [facility] Comment on above: Result Comment: Canc elled via OM: Order cancelled - Patient discharged Performed By: #### L 500.4050, L100.0100 ####[facility] [address] [place], [address] MCV Normal 81-99 [facility] Comment on above: Result Comment: Canc elled via OM: Order cancelled - Patient discharged Performed By: #### L 500.4050, L100.0100 ####[facility] [address] [place], [address] NEUT% Normal 47-70 [facility] Comment on above: Result Comment: Canc elled via OM: Order cancelled - Patient discharged Performed By: #### L 500.4050, L100.0100 ####[facility] [address] [place], [address] PLT Normal 150-450 [facility] Comment on above: Result Comment: Canc elled via OM: Order cancelled - Patient discharged Performed By: #### L 500.4050, L100.0100 ####[facility] [address] [place], [address] RBC Normal 4.2-5.4 [facility] Comment on above: Result Comment: Canc elled via OM: Order cancelled - Patient discharged Performed By: #### L 500.4050, L100.0100 ####[facility] [address] [place], [address] RDW CV Normal 11.6-14.6 [facility] Comment on above: Result Comment: Canc elled via OM: Order cancelled - Patient discharged Performed By: #### L 500.4050, L100.0100 ####[facility] [address] [place], [address] RDW SD Normal 35.1-43.9 [facility] Comment on above: Result Comment: Canc elled via OM: Order cancelled - Patient discharged Performed By: #### L 500.4050, L100.0100 ####[facility] [address] [place], [address] WBC Normal 4.4-11.0 [facility] Comment on above: Result Comment: Canc elled via OM: Order cancelled - Patient discharged Performed By: #### L 500.4050, L100.0100 ####[facility] [address] [place], [address] Absolute Lymph 1.61 X10 3/uL Normal 0.83-4.51 [facility] Comment on above: Performed By: #### L 100.0100, L500.4050 ####[facility] [address] [place], [address] Absolute Neut 2.7 X10 3/uL Normal 2.0-7.7 [facility] Comment on above: Performed By: #### L 100.0100, L500.4050 ####[facility] [address] [place], [address] Basophils/100 WBC (Bld) 1.0 % Normal 0-1 [facility] Comment on above: Performed By: #### L 100.0100, L500.4050 ####[facility] [address] [place], [address] Eosinophils/100 WBC (Bld) 4.1 % Normal 0-5 [facility] Comment on above: Performed By: #### L 100.0100, L500.4050 ####[facility] [address] [place], [address] Erythrocyte distribution width (RBC) [Ratio] 14.0 % Normal 11.6-14.6 [facility] Comment on above: Performed By: #### L 100.0100, L500.4050 ####[facility] [address] [place], [address] Hematocrit (Bld) [Volume fraction] 27.5 % Low 37-47 [facility] Comment on above: Performed By: #### L 100.0100, L500.4050 ####[facility] [address] [place], [address] Hemoglobin (Bld) [Mass/Vol] 9.1 g/dL Low 12.0-15.0 [facility] Comment on above: Performed By: #### L 100.0100, L500.4050 ####[facility] [address] [place], [address] IG% 0.400 Normal 0.0-0.9 [facility] Comment on above: Result Comment: IG% - Immature Granulocytes (promyelocytes, myelocytes andmetamyelocytes) > 1% indicates that a LEFT SHIFT is Present. Performed By: #### L 100.0100, L500.4050 ####[facility] [address] [place], [address] Lymphocytes/100 WBC (Bld) 31.8 % Normal 19-41 [facility] Comment on above: Performed By: #### L 100.0100, L500.4050 ####[facility] [address] [place], [address] MCH (RBC) [Entitic mass] 31.2 pg Normal 27.0-32.0 [facility] Comment on above: Performed By: #### L 100.0100, L500.4050 ####[facility] [address] [place], [address] MCHC (RBC) [Mass/Vol] 33.1 g/dL Normal 32-36 [facility] Comment on above: Performed By: #### L 100.0100, L500.4050 ####[facility] [address] [place], [address] MCV (RBC) [Entitic vol] 94.2 fL Normal 81-99 [facility] [place] [facility] Comment on above: Performed By: #### L 100.0100, L500.4050 ####[facility] [address] [place], [address] Monocytes/100 WBC (Bld) 9.1 % Normal 0-10 [facility] Comment on above: Performed By: #### L 100.0100, L500.4050 ####[facility] [address] [place], [address] Neutrophils/100 WBC (Bld) 53.6 % Normal 47-70 [facility] Comment on above: Performed By: #### L 100.0100, L500.4050 ####[facility] [address] [place], [address] Nucleated RBC (Bld) [#/Vol] 0 10*3/uL Normal 0-5 [facility] Comment on above: Performed By: #### L 100.0100, L500.4050 ####[facility] [address] [place], [address] Platelet mean volume (Bld) [Entitic vol] 9.9 fL Normal 6.2-12.0 [facility] Comment on above: Performed By: #### L 100.0100, L500.4050 ####[facility] [address] [place], [address] Platelets (Bld) [#/Vol] 347 10*3/uL Normal 150-450 [facility] Comment on above: Performed By: #### L 100.0100, L500.4050 ####[facility] [address] [place], [address] RBC (Bld) [#/Vol] 2.92 10*6/uL Low 4.2-5.4 [facility] Comment on above: Performed By: #### L 100.0100, L500.4050 ####[facility] [address] [place], [address] RDW SD 48.6 fl High 35.1-43.9 [facility] Comment on above: Performed By: #### L 100.0100, L500.4050 ####[facility] [address] [place], [address] WBC (Bld) [#/Vol] 5.1 10*3/uL Normal 4.4-11.0 [facility] Comment on above: Performed By: #### L 100.0100, L500.4050 ####[facility] [address] [place], [address] Comprehensive Metabolic Prof [facility] 09-28-2024 Albumin [Mass/Vol] 2.5 g/dL Low 3.4-4.8 [facility] Comment on above: Performed By: #### L 100.0100, L500.4050 ####[facility] [address] [place], [address] Albumin/Globulin [Mass ratio] 0.9 {ratio} Normal 0.9-2.4 [facility] Comment on above: Performed By: #### L 100.0100, L500.4050 ####[facility] [address] [place], [address] ALK PHOS 82 U/L Normal 35-104 [facility] Comment on above: Performed By: #### L 100.0100, L500.4050 ####[facility] [address] [place], [address] ALT [Catalytic activity/Vol] 14 U/L Normal <=34 [facility] Comment on above: Performed By: #### L 100.0100, L500.4050 ####[facility] [address] [place], [address] AST [Catalytic activity/Vol] 33 U/L High <=31 [facility] Comment on above: Performed By: #### L 100.0100, L500.4050 ####[facility] [address] [place], [address] Bilirubin [Mass/Vol] 0.26 mg/dL Normal 0.00-1.30 [facility] Comment on above: Performed By: #### L 100.0100, L500.4050 ####[facility] [address] [place], [address] BUN/CRE 12.2 RATIO Normal 10-20 [facility] Comment on above: Performed By: #### L 100.0100, L500.4050 ####[facility] [address] [place], [address] Calcium [Mass/Vol] 8.2 mg/dL Normal 7.6-11.0 [facility] Comment on above: Performed By: #### L 100.0100, L500.4050 ####[facility] [address] [place], [address] Chloride [Moles/Vol] 109 mmol/L High 98-108 [facility] Comment on above: Performed By: #### L 100.0100, L500.4050 ####[facility] [address] [place], [address] CO2 [Moles/Vol] 23.4 mmol/L Normal 21.0-32.0 [facility] Comment on above: Performed By: #### L 100.0100, L500.4050 ####[facility] [address] [place], [address] Creatinine [Mass/Vol] 0.77 mg/dL Normal 0.70-1.20 [facility] Comment on above: Performed By: #### L 100.0100, L500.4050 ####[facility] [address] [place], [address] ECRCL 46.56 ml/min Low 50-250 [facility] Comment on above: Performed By: #### L 100.0100, L500.4050 ####[facility] [address] [place], [address] GAP 8 Normal 5-15 [facility] Comment on above: Performed By: #### L 100.0100, L500.4050 ####[facility] [address] [place], [address] GFR/1.73 sq M.predicted among non-blacks MDRD (S/P/Bld) [Vol rate/Area] 82 mL/min/{1.73_m2} Normal >60 [facility] Comment on above: Result Comment: mL/m in/1.73m2 CKD-EPI Creatinine Equation (2020) Performed By: #### L 100.0100, L500.4050 ####[facility] [address] [place], [address] Globulin (S) [Mass/Vol] 2.7 g/dL Normal 2.2-4.2 [facility] Comment on above: Performed By: #### L 100.0100, L500.4050 ####[facility] [address] [place], [address] Glucose [Mass/Vol] 82 mg/dL Normal 70-99 [facility] Comment on above: Performed By: #### L 100.0100, L500.4050 ####[facility] [address] [place], [address] Potassium [Moles/Vol] 3.3 mmol/L Normal 3.3-5.1 [facility] Comment on above: Performed By: #### L 100.0100, L500.4050 ####[facility] [address] [place], [address] Sodium [Moles/Vol] 140 mmol/L Normal 133-145 [facility] Comment on above: Performed By: #### L 100.0100, L500.4050 ####[facility] [address] [place], [address] T PROT 5.2 g/dL Low 5.9-8.4 [facility] Comment on above: Performed By: #### L 100.0100, L500.4050 ####[facility] [address] [place], [address] Urea nitrogen [Mass/Vol] 9 mg/dL Normal 4-19 [facility] Comment on above: Performed By: #### L 100.0100, L500.4050 ####[facility] [address] [place], [address] ALB Normal 3.4-4.8 [facility] Comment on above: Result Comment: Canc elled via OM: Order cancelled - Patient discharged Performed By: #### L 500.4050, L100.0100 ####[facility] [address] [place], [address] ALK PHOS Normal 35-104 [facility] Comment on above: Result Comment: Canc elled via OM: Order cancelled - Patient discharged Performed By: #### L 500.4050, L100.0100 ####[facility] [address] [place], [address] ALT Normal <=34 [facility] Comment on above: Result Comment: Canc elled via OM: Order cancelled - Patient discharged Performed By: #### L 500.4050, L100.0100 ####[facility] [address] [place], [address] AST Normal <=31 [facility] Comment on above: Result Comment: Canc elled via OM: Order cancelled - Patient discharged Performed By: #### L 500.4050, L100.0100 ####[facility] [address] [place], [address] BUN Normal 4-19 [facility] Comment on above: Result Comment: Canc elled via OM: Order cancelled - Patient discharged Performed By: #### L 500.4050, L100.0100 ####[facility] [address] [place], [address] BUN/CRE Normal 10-20 [facility] Comment on above: Result Comment: Canc elled via OM: Order cancelled - Patient discharged Performed By: #### L 500.4050, L100.0100 ####[facility] [address] [place], [address] Calcium Normal 7.6-11.0 [facility] Comment on above: Result Comment: Canc elled via OM: Order cancelled - Patient discharged Performed By: #### L 500.4050, L100.0100 ####[facility] [address] [place], [address] CL Normal 98-108 [facility] Comment on above: Result Comment: Canc elled via OM: Order cancelled - Patient discharged Performed By: #### L 500.4050, L100.0100 ####[facility] [address] [place], [address] CO2 Normal 21.0-32.0 [facility] Comment on above: Result Comment: Canc elled via OM: Order cancelled - Patient discharged Performed By: #### L 500.4050, L100.0100 ####[facility] [address] [place], [address] CREAT,SERUM Normal 0.70-1.20 [facility] Comment on above: Result Comment: Canc elled via OM: Order cancelled - Patient discharged Performed By: #### L 500.4050, L100.0100 ####[facility] [address] [place], [address] eGFR Normal >60 [facility] Comment on above: Result Comment: Canc elled via OM: Order cancelled - Patient discharged Performed By: #### L 500.4050, L100.0100 ####[facility] [address] [place], [address] GAP Normal 5-15 [facility] Comment on above: Result Comment: Canc elled via OM: Order cancelled - Patient discharged Performed By: #### L 500.4050, L100.0100 ####[facility] [address] [place], [address] GLU Normal 70-99 [facility] Comment on above: Result Comment: Canc elled via OM: Order cancelled - Patient discharged Performed By: #### L 500.4050, L100.0100 ####[facility] [address] [place], [address] Potassium Normal 3.3-5.1 [facility] Comment on above: Result Comment: Canc elled via OM: Order cancelled - Patient discharged Performed By: #### L 500.4050, L100.0100 ####[facility] [address] [place], [address] T BILI Normal 0.00-1.30 [facility] Comment on above: Result Comment: Canc elled via OM: Order cancelled - Patient discharged Performed By: #### L 500.4050, L100.0100 ####[facility] [address] [place], [address] T PROT Normal 5.9-8.4 [facility] Comment on above: Result Comment: Canc elled via OM: Order cancelled - Patient discharged Performed By: #### L 500.4050, L100.0100 ####[facility] [address] [place], [address] Comprehensive Metabolic Profil Normal 133-145 [facility] Comment on above: Result Comment: Canc elled via OM: Order cancelled - Patient discharged Performed By: #### L 500.4050, L100.0100 ####[facility] [address] [place], [address] Nucleated red blood cell per centageOrdered By: Anastasia White on 09-28-2024 Nucleated RBC/100 WBC (Bld) [Ratio] 0 % 0-5 [facility] 12 Lead EKGon 09-27-2024 12 Lead EKG Normal [facility] Absolute lymphocyte countOrd ered By: Dimitry Rosales on 09-27-2024 Lymphocytes Auto (Unsp spec) [#/Vol] 0.97 10*3/uL 0.83-4.51 [facility] Absolute neutrophil countOrd ered By: Dimitry Ungaidee on 09-27-2024 Neutrophils (Bld) [#/Vol] 6.8 10*3/uL 2.0-7.7 [facility] Ammoniaon 09-27-2024 Ammonia (P) [Moles/Vol] 12.1 umol/L Normal - [facility] Comment on above: Performed By: #### L 100.0100, L503.5510, L500.4050 ####[facility] [address] [place], [address] Anion gap in Serum or Plasma Ordered By: Dimitry Rosales on 09-27-2024 Anion gap [Moles/Vol] 12 mmol/L 5-15 [facility] Automated lymphocyte count a s percentage of total leukocytesOrdered By: Dimitry Rosales on 09-27-2024 Lymphocytes/100 WBC Auto (Unsp spec) 11.4 % Low 19-41 [facility] BUN/creatinine ratioOrdered By: Dimitry Rosales on 09-27-2024 Urea nitrogen/Creatinine [Mass ratio] 10.3 mg/mg 10-20 [facility] Basophil percentageOrdered B y: Dimitry Rosales on 09-27-2024 Basophils/100 WBC (Bld) 0.5 % 0-1 [facility] Bilirubin Test strip Ql (U)O rdered By: Dimitry Rosales on 09-27-2024 Bilirubin Ql (U) Negative Negative [facility] Bilirubin, totalOrdered By: Dimitry Rosales on 09-27-2024 Bilirubin [Mass/Vol] 0.31 mg/dL 0.00-1.30 [facility] Brain/Head without Contrasto n 09-27-2024 Brain/Head without Contrast Normal [facility] CBC W/Diff, Automatedon - Absolute Lymph 0.97 X10 3/uL Normal 0.83-4.51 [facility] Comment on above: Performed By: #### L 100.0100, L503.5510, L500.4050 ####[facility] [address] [place], [address] Absolute Neut 6.8 X10 3/uL Normal 2.0-7.7 [facility] Comment on above: Performed By: #### L 100.0100, L503.5510, L500.4050 ####[facility] [address] [place], [address] Basophils/100 WBC (Bld) 0.5 % Normal 0-1 [facility] Comment on above: Performed By: #### L 100.0100, L503.5510, L500.4050 ####[facility] [address] [place], [address] Eosinophils/100 WBC (Bld) 1.1 % Normal 0-5 [facility] Comment on above: Performed By: #### L 100.0100, L503.5510, L500.4050 ####[facility] [address] [place], [address] Erythrocyte distribution width (RBC) [Ratio] 14.0 % Normal 11.6-14.6 [facility] Comment on above: Performed By: #### L 100.0100, L503.5510, L500.4050 ####[facility] [address] [place], [address] Hematocrit (Bld) [Volume fraction] 33.7 % Low 37-47 [facility] Comment on above: Performed By: #### L 100.0100, L503.5510, L500.4050 ####[facility] [address] [place], [address] Hemoglobin (Bld) [Mass/Vol] 10.9 g/dL Low 12.0-15.0 [facility] Comment on above: Performed By: #### L 100.0100, L503.5510, L500.4050 ####[facility] [address] [place], [address] IG% 0.600 Normal 0.0-0.9 [facility] Comment on above: Result Comment: IG% - Immature Granulocytes (promyelocytes, myelocytes andmetamyelocytes) > 1% indicates that a LEFT SHIFT is Present. Performed By: #### L 100.0100, L503.5510, L500.4050 ####[facility] [address] [place], [address] Lymphocytes/100 WBC (Bld) 11.4 % Low 19-41 [facility] Comment on above: Performed By: #### L 100.0100, L503.5510, L500.4050 ####[facility] [address] [place], [address] MCH (RBC) [Entitic mass] 30.9 pg Normal 27.0-32.0 [facility] Comment on above: Performed By: #### L 100.0100, L503.5510, L500.4050 ####[facility] [address] [place], [address] MCHC (RBC) [Mass/Vol] 32.3 g/dL Normal 32-36 [facility] Comment on above: Performed By: #### L 100.0100, L503.5510, L500.4050 ####[facility] [address] [place], [address] MCV (RBC) [Entitic vol] 95.5 fL Normal 81-99 [facility] Comment on above: Performed By: #### L 100.0100, L503.5510, L500.4050 ####[facility] [address] [place], [address] Monocytes/100 WBC (Bld) 5.9 % Normal 0-10 [facility] Comment on above: Performed By: #### L 100.0100, L503.5510, L500.4050 ####[facility] [address] [place], [address] Neutrophils/100 WBC (Bld) 80.5 % High 47-70 [facility] Comment on above: Performed By: #### L 100.0100, L503.5510, L500.4050 ####[facility] [address] [place], [address] Nucleated RBC (Bld) [#/Vol] 0 10*3/uL Normal 0-5 [facility] Comment on above: Performed By: #### L 100.0100, L503.5510, L500.4050 ####[facility] [address] [place], [address] Platelet mean volume (Bld) [Entitic vol] 10.3 fL Normal 6.2-12.0 [facility] Comment on above: Performed By: #### L 100.0100, L503.5510, L500.4050 ####[facility] [address] [place], [address] Platelets (Bld) [#/Vol] 374 10*3/uL Normal 150-450 [facility] Comment on above: Performed By: #### L 100.0100, L503.5510, L500.4050 ####[facility] [address] [place], [address] RBC (Bld) [#/Vol] 3.53 10*6/uL Low 4.2-5.4 [facility] Comment on above: Performed By: #### L 100.0100, L503.5510, L500.4050 ####[facility] [address] [place], [address] RDW SD 48.4 fl High 35.1-43.9 [facility] Comment on above: Performed By: #### L 100.0100, L503.5510, L500.4050 ####[facility] [address] [place], [address] WBC (Bld) [#/Vol] 8.5 10*3/uL Normal 4.4-11.0 [facility] Comment on above: Performed By: #### L 100.0100, L503.5510, L500.4050 ####[facility] [address] [place], [address] Absolute Neut Normal 2.0-7.7 [facility] Comment on above: Result Comment: Canc elled via OM: Order cancelled - Patient discharged Performed By: #### L 500.4050, L100.0100 ####[facility] [address] [place], [address] HCT Normal 37-47 [facility] Comment on above: Result Comment: Canc elled via OM: Order cancelled - Patient discharged Performed By: #### L 500.4050, L100.0100 ####[facility] [address] [place], [address] HGB Normal 12.0-15.0 [facility] Comment on above: Result Comment: Canc elled via OM: Order cancelled - Patient discharged Performed By: #### L 500.4050, L100.0100 ####[facility] [address] [place], [address] MCH Normal 27.0-32.0 [facility] Comment on above: Result Comment: Canc elled via OM: Order cancelled - Patient discharged Performed By: #### L 500.4050, L100.0100 ####[facility] [address] [place], [address] MCHC Normal 32-36 [facility] Comment on above: Result Comment: Canc elled via OM: Order cancelled - Patient discharged Performed By: #### L 500.4050, L100.0100 ####[facility] [address] [place], [address] MCV Normal 81-99 [facility] Comment on above: Result Comment: Canc elled via OM: Order cancelled - Patient discharged Performed By: #### L 500.4050, L100.0100 ####[facility] [address] [place], [address] NEUT% Normal 47-70 [facility] Comment on above: Result Comment: Canc elled via OM: Order cancelled - Patient discharged Performed By: #### L 500.4050, L100.0100 ####[facility] [address] [place], [address] PLT Normal 150-450 [facility] Comment on above: Result Comment: Canc elled via OM: Order cancelled - Patient discharged Performed By: #### L 500.4050, L100.0100 ####[facility] [address] [place], [address] RBC Normal 4.2-5.4 [facility] Comment on above: Result Comment: Canc elled via OM: Order cancelled - Patient discharged Performed By: #### L 500.4050, L100.0100 ####[facility] [address] [place], [address] RDW CV Normal 11.6-14.6 [facility] Comment on above: Result Comment: Canc elled via OM: Order cancelled - Patient discharged Performed By: #### L 500.4050, L100.0100 ####[facility] [address] [place], [address] RDW SD Normal 35.1-43.9 [facility] Comment on above: Result Comment: Canc elled via OM: Order cancelled - Patient discharged Performed By: #### L 500.4050, L100.0100 ####[facility] [address] [place], [address] WBC Normal 4.4-11.0 [facility] Comment on above: Result Comment: Canc elled via OM: Order cancelled - Patient discharged Performed By: #### L 500.4050, L100.0100 ####[facility] [address] [place], [address] Carbon dioxide, total [Moles /volume] in Central venous bloodOrdered By: Dimitry Rosales on 09-27-2024 CO2 [Moles/Vol] 24.3 mmol/L 21.0-32.0 [facility] Chest 1 View (Portable)on Chest 1 View (Portable) Normal [facility] Chloride assayOrdered By: Jovanna Rosales on 09-27-2024 Chloride [Moles/Vol] 105 mmol/L 98-108 [facility] Comprehensive Metabolic Prof ilon 09-27-2024 Albumin [Mass/Vol] 3.1 g/dL Low 3.4-4.8 [facility] Comment on above: Performed By: #### L 100.0100, L503.5510, L500.4050 ####[facility] [address] [place], [address] Albumin/Globulin [Mass ratio] 0.9 {ratio} Normal 0.9-2.4 [facility] Comment on above: Performed By: #### L 100.0100, L503.5510, L500.4050 ####[facility] [address] [place], [address] ALK PHOS 102 U/L Normal 35-104 [facility] Comment on above: Performed By: #### L 100.0100, L503.5510, L500.4050 ####[facility] [address] [place], [address] ALT [Catalytic activity/Vol] 20 U/L Normal <=34 [facility] Comment on above: Performed By: #### L 100.0100, L503.5510, L500.4050 ####[facility] [address] [place], [address] AST [Catalytic activity/Vol] 44 U/L High <=31 [facility] Comment on above: Performed By: #### L 100.0100, L503.5510, L500.4050 ####[facility] [address] [place], [address] Bilirubin [Mass/Vol] 0.31 mg/dL Normal 0.00-1.30 [facility] Comment on above: Performed By: #### L 100.0100, L503.5510, L500.4050 ####[facility] [address] [place], [address] BUN/CRE 10.3 RATIO Normal 10-20 [facility] Comment on above: Performed By: #### L 100.0100, L503.5510, L500.4050 ####[facility] [address] [place], [address] Calcium [Mass/Vol] 8.9 mg/dL Normal 7.6-11.0 [facility] Comment on above: Performed By: #### L 100.0100, L503.5510, L500.4050 ####[facility] [address] [place], [address] Chloride [Moles/Vol] 105 mmol/L Normal 98-108 [facility] Comment on above: Performed By: #### L 100.0100, L503.5510, L500.4050 ####[facility] [address] [place], [address] CO2 [Moles/Vol] 24.3 mmol/L Normal 21.0-32.0 [facility] Comment on above: Performed By: #### L 100.0100, L503.5510, L500.4050 ####[facility] [address] [place], [address] Creatinine [Mass/Vol] 0.85 mg/dL Normal 0.70-1.20 [facility] Comment on above: Performed By: #### L 100.0100, L503.5510, L500.4050 ####[facility] [address] [place], [address] ECRCL 44.18 ml/min Low 50-250 [facility] Comment on above: Performed By: #### L 100.0100, L503.5510, L500.4050 ####[facility] [address] [place], [address] GAP 12 Normal 5-15 [facility] Comment on above: Performed By: #### L 100.0100, L503.5510, L500.4050 ####[facility] [address] [place], [address] GFR/1.73 sq M.predicted among non-blacks MDRD (S/P/Bld) [Vol rate/Area] 72 mL/min/{1.73_m2} Normal >60 [facility] Comment on above: Result Comment: mL/m in/1.73m2 CKD-EPI Creatinine Equation (2020) Performed By: #### L 100.0100, L503.5510, L500.4050 ####[facility] [address] [place], [address] Globulin (S) [Mass/Vol] 3.5 g/dL Normal 2.2-4.2 [facility] Comment on above: Performed By: #### L 100.0100, L503.5510, L500.4050 ####[facility] [address] [place], [address] Glucose [Mass/Vol] 118 mg/dL High 70-99 [facility] Comment on above: Performed By: #### L 100.0100, L503.5510, L500.4050 ####[facility] [address] [place], [address] Potassium [Moles/Vol] 3.3 mmol/L Normal 3.3-5.1 [facility] Comment on above: Performed By: #### L 100.0100, L503.5510, L500.4050 ####[facility] [address] [place], [address] Sodium [Moles/Vol] 141 mmol/L Normal 133-145 [facility] Comment on above: Performed By: #### L 100.0100, L503.5510, L500.4050 ####[facility] [address] [place], [address] T PROT 6.6 g/dL Normal 5.9-8.4 [facility] Comment on above: Performed By: #### L 100.0100, L503.5510, L500.4050 ####[facility] [address] [place], [address] Urea nitrogen [Mass/Vol] 9 mg/dL Normal 4-19 [facility] Comment on above: Performed By: #### L 100.0100, L503.5510, L500.4050 ####[facility] [address] [place], [address] ALB Normal 3.4-4.8 [facility] Comment on above: Result Comment: Canc elled via OM: Order cancelled - Patient discharged Performed By: #### L 500.4050, L100.0100 ####[facility] [address] [place], [address] ALK PHOS Normal 35-104 [facility] Comment on above: Result Comment: Canc elled via OM: Order cancelled - Patient discharged Performed By: #### L 500.4050, L100.0100 ####[facility] [address] [place], [address] ALT Normal <=34 [facility] Comment on above: Result Comment: Canc elled via OM: Order cancelled - Patient discharged Performed By: #### L 500.4050, L100.0100 ####[facility] [address] [place], [address] AST Normal <=31 [facility] Comment on above: Result Comment: Canc elled via OM: Order cancelled - Patient discharged Performed By: #### L 500.4050, L100.0100 ####[facility] [address] [place], [address] BUN Normal 4-19 [facility] Comment on above: Result Comment: Canc elled via OM: Order cancelled - Patient discharged Performed By: #### L 500.4050, L100.0100 ####[facility] [address] [place], [address] BUN/CRE Normal 10-20 [facility] Comment on above: Result Comment: Canc elled via OM: Order cancelled - Patient discharged Performed By: #### L 500.4050, L100.0100 ####[facility] [address] [place], [address] Calcium Normal 7.6-11.0 [facility] Comment on above: Result Comment: Canc elled via OM: Order cancelled - Patient discharged Performed By: #### L 500.4050, L100.0100 ####[facility] [address] [place], [address] CL Normal 98-108 [facility] Comment on above: Result Comment: Canc elled via OM: Order cancelled - Patient discharged Performed By: #### L 500.4050, L100.0100 ####[facility] [address] [place], [address] CO2 Normal 21.0-32.0 [facility] Comment on above: Result Comment: Canc elled via OM: Order cancelled - Patient discharged Performed By: #### L 500.4050, L100.0100 ####[facility] [address] [place], [address] CREAT,SERUM Normal 0.70-1.20 [facility] Comment on above: Result Comment: Canc elled via OM: Order cancelled - Patient discharged Performed By: #### L 500.4050, L100.0100 ####[facility] [address] [place], [address] eGFR Normal >60 [facility] Comment on above: Result Comment: Canc elled via OM: Order cancelled - Patient discharged Performed By: #### L 500.4050, L100.0100 ####[facility] [address] [place], [address] GAP Normal 5-15 [facility] Comment on above: Result Comment: Canc elled via OM: Order cancelled - Patient discharged Performed By: #### L 500.4050, L100.0100 ####[facility] [address] [place], [address] GLU Normal 70-99 [facility] Comment on above: Result Comment: Canc elled via OM: Order cancelled - Patient discharged Performed By: #### L 500.4050, L100.0100 ####[facility] [address] [place], [address] Potassium Normal 3.3-5.1 [facility] Comment on above: Result Comment: Canc elled via OM: Order cancelled - Patient discharged Performed By: #### L 500.4050, L100.0100 ####[facility] [address] [place], [address] T BILI Normal 0.00-1.30 [facility] Comment on above: Result Comment: Canc elled via OM: Order cancelled - Patient discharged Performed By: #### L 500.4050, L100.0100 ####[facility] [address] [place], [address] T PROT Normal 5.9-8.4 [facility] Comment on above: Result Comment: Canc elled via OM: Order cancelled - Patient discharged Performed By: #### L 500.4050, L100.0100 ####[facility] [address] [place], [address] Comprehensive Metabolic Profil Normal 133-145 [facility] Comment on above: Result Comment: Canc elled via OM: Order cancelled - Patient discharged Performed By: #### L 500.4050, L100.0100 ####[facility] [address] [place], [address] Culture, Blood (WB)on 2024 CUB Blood cultures x2, f rom two different sites No growth in 5 days. Normal [facility] Comment on above: Performed By: #### M 200.1000 ####[facility] [address] [place], [address] Emergency Department Summary on 09-27-2024 Emergency Department Summary Normal [facility] Eosinophil percentageOrdered By: Diimtry Rosales on 09-27-2024 Eosinophils/100 WBC (Bld) 1.1 % 0-5 [facility] Erythrocyte distribution wid th ratioOrdered By: Dimitry Rosales on 09-27-2024 Erythrocyte distribution width (RBC) [Ratio] 14.0 % 11.6-14.6 [facility] Erythrocyte distribution wid th standard deviationOrdered By: Dimitry Rosales on 09-27-2024 Erythrocyte distribution width (RBC) [Ratio] 48.4 fl High 35.1-43.9 [facility] Glomerular filtration rate ( GFR) estimation/1.73 sq m using serum, plasma, or whole bOrdered By: Dimitry Rosales on 09-27-2024 GFR/1.73 sq M.predicted among non-blacks MDRD (S/P/Bld) [Vol rate/Area] 72 mL/min/{1.73_m2} >60 [facility] Comment on above: mL/min/1.73m2 CKD-EP I Creatinine Equation (2020) H AND P Exam - [facility] 09-27-2024 H&P Exam - Hospitalist Normal [facility] Hematocrit Auto (Bld) [Volum e fraction]Ordered By: Dimitry Rosales on 09-27-2024 Hematocrit (Bld) [Volume fraction] 33.7 % Low 37-47 [facility] Hemoglobin measurementOrdere d By: Dimitry Rosales on 09-27-2024 Hemoglobin (Bld) [Mass/Vol] 10.9 g/dL Low 12.0-15.0 [facility] Immature granulocytes/100 WB C Auto (Bld)Ordered By: Dimitry Rosales on 09-27-2024 Immature granulocytes/100 WBC (Bld) 0.600 % 0.0-0.9 [facility] Comment on above: IG% - Immature Granu locytes (promyelocytes, myelocytes and metamyelocytes) > 1% indicates that a LEFT SHIFT is Present. Influenza virus A and B and SARS-CoV-2 (COVID-19) and Respiratory syncytial virus RNAOrdered By: Dimitry Rosales on 09-27-2024 SARS-CoV-2 (COVID-19) RNA ANTIONE+probe Ql (Unsp spec) [facility] Ketones Test strip Ql (U)Ord ered By: Dimitry Rosales on 09-27-2024 Ketones Ql (U) Negative Negative [facility] Laboratory - Chemistry and C hemistry - challengeOrdered By: Dimitry Rosales on 09-27-2024 AST [Catalytic activity/Vol] 44 U/L High <32 [facility] M100.678on 09-27-2024 M1008 SARS-CoV-2 (COVID 19 ) Negative INFLUENZA A Negative INFLUENZA B Negative RSV PCR Negative Normal [facility] Comment on above: Performed By: #### L 400.0001, M100.678 ####[facility] [address] [place], [address] MCV (mean corpuscular volume ) determinationOrdered By: Dimitry Rosales on 09-27-2024 MCV (RBC) [Entitic vol] 95.5 fL 81-99 [facility] Mean corpuscular hemoglobin (MCH) determinationOrdered By: Dimitry Rosales on 09-27-2024 MCH (RBC) [Entitic mass] 30.9 pg 27.0-32.0 [facility] Mean corpuscular hemoglobin concentration (MCHC) determinationOrdered By: Dimitry Rosales on 09-27-2024 MCHC (RBC) [Mass/Vol] 32.3 g/dL 32-36 [facility] Mean platelet volume determi nationOrdered By: Dimitry Rosales on 09-27-2024 Platelet mean volume (Bld) [Entitic vol] 10.3 fL 6.2-12.0 [facility] Microscopic analysis of urin e for red blood cells (RBC)Ordered By: Dimitry Rosales on 09-27-2024 Microscopic analysis of urine for red blood cells (RBC) 0-5 SEEN /hpf 0-5 [facility] Monocyte percentageOrdered B y: Dimitry Rosales on 09-27-2024 Monocytes/100 WBC (Bld) 5.9 % 0-10 [facility] Mucus LM Ql (Urine sed)Order ed By: Dimitry Rosales on 09-27-2024 Mucus Ql (Urine sed) 0 SEEN /hpf [facility] Neutrophil percentageOrdered By: Dimitry Rosales on 09-27-2024 Neutrophils/100 WBC (Bld) 80.5 % High 47-70 [facility] Nitrite Test strip Ql (U)Ord ered By: Dimitry Rosales on 09-27-2024 Nitrite Ql (U) Negative Negative [facility] Nucleated red blood cell per centageOrdered By: Dimitry Rosales on 09-27-2024 Nucleated RBC/100 WBC (Bld) [Ratio] 0 % 0-5 [facility] Pelvis 1 or 2 Viewson 2024 Pelvis 1 or 2 Views Normal [facility] Platelet countOrdered By: Jovanna Rosales on 09-27-2024 Platelets (Bld) [#/Vol] 374 10*3/uL 150-450 [facility] Potassium measurement (mass/ volume)Ordered By: Dimitry Rosales on 09-27-2024 Potassium (Unsp spec) [Mass/Vol] 3.3 mmol/L 3.3-5.1 [facility] Protein Test strip Ql (U)Ord ered By: Dimitry Rosales on 09-27-2024 Protein Ql (U) 30 mg/dl High Negative [facility] RBC Auto (Bld) [#/Vol]Ordere d By: Dimitry Rosales on 09-27-2024 RBC (Bld) [#/Vol] 3.53 10*6/uL Low 4.2-5.4 [facility] Serum creatinine measurement (mass/volume)Ordered By: Dimitry Rosales on 09-27-2024 Creatinine [Mass/Vol] 0.85 mg/dL 0.70-1.20 [facility] Serum globulin measurementOr dered By: Dimitry Rosales on 09-27-2024 Globulin (S) [Mass/Vol] 3.5 g/dL 2.2-4.2 [facility] Serum glucose measurement (m ass/volume)Ordered By: Dimitry Rosales on 09-27-2024 Glucose [Mass/Vol] 118 mg/dL High 70-99 [facility] [facility] Serum or plasma alanine soliz otransferase (ALT) measurementOrdered By: Dimitry Rosales on 09-27-2024 ALT [Catalytic activity/Vol] 20 U/L <35 [facility] Serum or plasma albumin rosangela urement (mass/volume)Ordered By: Dimitry Rosales on 09-27-2024 Albumin [Mass/Vol] 3.1 g/dL Low 3.4-4.8 [facility] Serum or plasma albumin/glob ulin mass ratioOrdered By: Dimitry Rosales on 09-27-2024 Albumin/Globulin [Mass ratio] 0.9 {ratio} 0.9-2.4 [facility] Serum or plasma alkaline faustino sphatase measurementOrdered By: Dimitry Lopezaidee on 09-27-2024 ALP [Catalytic activity/Vol] 102 U/L 35-104 [facility] Serum or plasma calcium rosangela urement (mass/volume)Ordered By: Remus Ungaidee on 09-27-2024 Calcium [Mass/Vol] 8.9 mg/dL 7.6-11.0 [facility] Serum or plasma urea nitroge n measurement (mass/volume)Ordered By: Remus Ungaidee on 09-27-2024 Urea nitrogen [Mass/Vol] 9 mg/dL 4-19 [facility] Sodium levelOrdered By: Erik s Johniadee on 09-27-2024 Sodium [Moles/Vol] 141 mmol/L 133-145 [facility] Squamous epithelial cells de tection in urine sediment by light microscopyOrdered By: Dimitry Lopezaidee on 09-27-2024 Epithelial cells.squamous LM Ql (Urine sed) 0 SEEN /hpf 5-10 [facility] Total proteinOrdered By: Carmen us Bobby on 09-27-2024 Protein [Mass/Vol] 6.6 g/dL 5.9-8.4 [facility] Urinalysis, Completeon 09-27 WBC 0-5 SEEN Normal 0-5 [facility] Comment on above: Order Comment: CLEAN CATCH Performed By: #### L 400.0001, M1 ####[facility] [address] [place], [address] RBC 0-5 SEEN Normal 0-5 [facility] Comment on above: Order Comment: CLEAN CATCH Performed By: #### L 400.0001, M1 ####[facility] [address] [place], [address] YEAST 1+ /hpf Normal None Seen [facility] Comment on above: Order Comment: CLEAN CATCH Performed By: #### L 400.0001, M1 ####[facility] [address] [place], [address] BACTERIA 0 SEEN Normal None Seen [facility] Comment on above: Order Comment: CLEAN CATCH Performed By: #### L 400.0001, M100.678 ####[facility] [address] [place], [address] EPI,SQUAMOUS 0 SEEN Normal 5-10 [facility] Comment on above: Order Comment: CLEAN CATCH Performed By: #### L 400.0001, M100.678 ####[facility] [address] [place], [address] Mucus Ql (Urine sed) 0 SEEN Normal [facility] Comment on above: Order Comment: CLEAN CATCH Performed By: #### L 400.0001, M100.678 ####[facility] [address] [place], [address] Urine clarityOrdered By: Carmen Rosales on 09-27-2024 Clarity (U) Sl. Cloudy Clear [facility] Urine color determinationOrd ered By: Dimitry Rosales on 09-27-2024 Color (U) Yellow Yellow [facility] Urine glucose detectionOrder ed By: Dimitry Rosales on 09-27-2024 Glucose Ql (U) Normal mg/dl Normal [facility] Urine leukocyte esterase det ection by dipstickOrdered By: Dimitry Rosales on 09-27-2024 Leukocyte esterase Test strip Ql (U) 500 /ul High Negative [facility] Urine pHOrdered By: Dimitry Jerome gur on 09-27-2024 pH (U) 6.0 [pH] 5.0 - 8.0 [facility] Urine sediment bacteria coun t by microscopy (number/high power field)Ordered By: Dimitry Rosales on 09-27-2024 Bacteria LM.HPF (Urine sed) [#/Area] 0 /[HPF] None Seen [facility] Urine sediment yeast count b y microscopy (number/high powered field)Ordered By: Dimitry Rosales on 09-27-2024 Yeast LM.HPF (Urine sed) [#/Area] 1 /[HPF] None Seen [facility] Urine specific gravity measu rementOrdered By: Dimitry Rosales on 07-12-2025 Specific gravity (U) [Rel density] 1.015 1.002-1.03 0 [facility] Urine urobilinogen measureme ntOrdered By: Dimitry Rosales on 09-27-2024 Urobilinogen Ql (U) Normal mg/dl Normal [facility] Venous blood ammonia measure mentOrdered By: Dimitry Rosales on 09-27-2024 Ammonia (P) [Moles/Vol] 12.1 umol/L 11-51 [facility] White blood cell (WBC) count Ordered By: Dimitry Rosales on 09-27-2024 WBC (Bld) [#/Vol] 8.5 10*3/uL 4.4-11.0 [facility] White blood cell countOrdere d By: Dimitry Rosales on 09-27-2024 White blood cell count 0-5 SEEN /hpf 0-5 [facility] CBC W/Diff, Automatedon 09-16 Absolute Neut Normal 2.0-7.7 [facility] Comment on above: Result Comment: Canc elled via OM: Order cancelled - Patient discharged Performed By: #### L 500.4050, L100.0100 ####[facility] [address] [place], [address] HCT Normal 37-47 [facility] Comment on above: Result Comment: Canc elled via OM: Order cancelled - Patient discharged Performed By: #### L 500.4050, L100.0100 ####[facility] [address] [place], [address] HGB Normal 12.0-15.0 [facility] Comment on above: Result Comment: Canc elled via OM: Order cancelled - Patient discharged Performed By: #### L 500.4050, L100.0100 ####[facility] [address] [place], [address] MCH Normal 27.0-32.0 [facility] Comment on above: Result Comment: Canc elled via OM: Order cancelled - Patient discharged Performed By: #### L 500.4050, L100.0100 ####[facility] [address] [place], [address] MCHC Normal 32-36 [facility] Comment on above: Result Comment: Canc elled via OM: Order cancelled - Patient discharged Performed By: #### L 500.4050, L100.0100 ####[facility] [address] [place], [address] MCV Normal 81-99 [facility] Comment on above: Result Comment: Canc elled via OM: Order cancelled - Patient discharged Performed By: #### L 500.4050, L100.0100 ####[facility] [address] [place], [address] NEUT% Normal 47-70 [facility] Comment on above: Result Comment: Canc elled via OM: Order cancelled - Patient discharged Performed By: #### L 500.4050, L100.0100 ####[facility] [address] [place], [address] PLT Normal 150-450 [facility] Comment on above: Result Comment: Canc elled via OM: Order cancelled - Patient discharged Performed By: #### L 500.4050, L100.0100 ####[facility] [address] [place], [address] RBC Normal 4.2-5.4 [facility] Comment on above: Result Comment: Canc elled via OM: Order cancelled - Patient discharged Performed By: #### L 500.4050, L100.0100 ####[facility] [address] [place], [address] RDW CV Normal 11.6-14.6 [facility] Comment on above: Result Comment: Canc elled via OM: Order cancelled - Patient discharged Performed By: #### L 500.4050, L100.0100 ####[facility] [address] [place], [address] RDW SD Normal 35.1-43.9 [facility] Comment on above: Result Comment: Canc elled via OM: Order cancelled - Patient discharged Performed By: #### L 500.4050, L100.0100 ####[facility] [address] [place], [address] WBC Normal 4.4-11.0 [facility] Comment on above: Result Comment: Canc elled via OM: Order cancelled - Patient discharged Performed By: #### L 500.4050, L100.0100 ####[facility] [address] [place], [address] Comprehensive Metabolic Prof ilon 09-26-2024 ALB Normal 3.4-4.8 [facility] Comment on above: Result Comment: Canc elled via OM: Order cancelled - Patient discharged Performed By: #### L 500.4050, L100.0100 ####[facility] [address] [place], [address] ALK PHOS Normal 35-104 [facility] Comment on above: Result Comment: Canc elled via OM: Order cancelled - Patient discharged Performed By: #### L 500.4050, L100.0100 ####[facility] [address] [place], [address] ALT Normal <=34 [facility] Comment on above: Result Comment: Canc elled via OM: Order cancelled - Patient discharged Performed By: #### L 500.4050, L100.0100 ####[facility] [address] [place], [address] AST Normal <=31 [facility] Comment on above: Result Comment: Canc elled via OM: Order cancelled - Patient discharged Performed By: #### L 500.4050, L100.0100 ####[facility] [address] [place], [address] BUN Normal 4-19 [facility] Comment on above: Result Comment: Canc elled via OM: Order cancelled - Patient discharged Performed By: #### L 500.4050, L100.0100 ####[facility] [address] [place], [address] BUN/CRE Normal 10-20 [facility] Comment on above: Result Comment: Canc elled via OM: Order cancelled - Patient discharged Performed By: #### L 500.4050, L100.0100 ####[facility] [address] [place], [address] Calcium Normal 7.6-11.0 [facility] Comment on above: Result Comment: Canc elled via OM: Order cancelled - Patient discharged Performed By: #### L 500.4050, L100.0100 ####[facility] [address] [place], [address] CL Normal 98-108 [facility] Comment on above: Result Comment: Canc elled via OM: Order cancelled - Patient discharged Performed By: #### L 500.4050, L100.0100 ####[facility] [address] [place], [address] CO2 Normal 21.0-32.0 [facility] Comment on above: Result Comment: Canc elled via OM: Order cancelled - Patient discharged Performed By: #### L 500.4050, L100.0100 ####[facility] [address] [place], [address] CREAT,SERUM Normal 0.70-1.20 [facility] Comment on above: Result Comment: Canc elled via OM: Order cancelled - Patient discharged Performed By: #### L 500.4050, L100.0100 ####[facility] [address] [place], [address] eGFR Normal >60 [facility] Comment on above: Result Comment: Canc elled via OM: Order cancelled - Patient discharged Performed By: #### L 500.4050, L100.0100 ####[facility] [address] [place], [address] GAP Normal 5-15 [facility] Comment on above: Result Comment: Canc elled via OM: Order cancelled - Patient discharged Performed By: #### L 500.4050, L100.0100 ####[facility] [address] [place], [address] GLU Normal 70-99 [facility] Comment on above: Result Comment: Canc elled via OM: Order cancelled - Patient discharged Performed By: #### L 500.4050, L100.0100 ####[facility] [address] [place], [address] Potassium Normal 3.3-5.1 [facility] Comment on above: Result Comment: Canc elled via OM: Order cancelled - Patient discharged Performed By: #### L 500.4050, L100.0100 ####[facility] [address] [place], [address] T BILI Normal 0.00-1.30 [facility] Comment on above: Result Comment: Canc elled via OM: Order cancelled - Patient discharged Performed By: #### L 500.4050, L100.0100 ####[facility] [address] [place], [address] T PROT Normal 5.9-8.4 [facility] Comment on above: Result Comment: Canc elled via OM: Order cancelled - Patient discharged Performed By: #### L 500.4050, L100.0100 ####[facility] [address] [place], [address] Comprehensive Metabolic Profil Normal 133-145 [facility] Comment on above: Result Comment: Canc elled via OM: Order cancelled - Patient discharged Performed By: #### L 500.4050, L100.0100 ####[facility] [address] [place], [address] CBC W/Diff, Automatedon --2024 Absolute Neut Normal 2.0-7.7 [facility] Comment on above: Result Comment: Canc elled via OM: Order cancelled - Patient discharged Performed By: #### L 100.0100, L500.4050 ####[facility] [address] [place], [address] HCT Normal 37-47 [facility] Comment on above: Result Comment: Canc elled via OM: Order cancelled - Patient discharged Performed By: #### L 100.0100, L500.4050 ####[facility] [address] [place], [address] HGB Normal 12.0-15.0 [facility] Comment on above: Result Comment: Canc elled via OM: Order cancelled - Patient discharged Performed By: #### L 100.0100, L500.4050 ####[facility] [address] [place], [address] MCH Normal 27.0-32.0 [facility] Comment on above: Result Comment: Canc elled via OM: Order cancelled - Patient discharged Performed By: #### L 100.0100, L500.4050 ####[facility] [address] [place], [address] MCHC Normal 32-36 [facility] Comment on above: Result Comment: Canc elled via OM: Order cancelled - Patient discharged Performed By: #### L 100.0100, L500.4050 ####[facility] [address] [place], [address] MCV Normal 81-99 [facility] Comment on above: Result Comment: Canc elled via OM: Order cancelled - Patient discharged Performed By: #### L 100.0100, L500.4050 ####[facility] [address] [place], [address] NEUT% Normal 47-70 [facility] Comment on above: Result Comment: Canc elled via OM: Order cancelled - Patient discharged Performed By: #### L 100.0100, L500.4050 ####[facility] [address] [place], [address] PLT Normal 150-450 [facility] Comment on above: Result Comment: Canc elled via OM: Order cancelled - Patient discharged Performed By: #### L 100.0100, L500.4050 ####[facility] [address] [place], [address] RBC Normal 4.2-5.4 [facility] Comment on above: Result Comment: Canc elled via OM: Order cancelled - Patient discharged Performed By: #### L 100.0100, L500.4050 ####[facility] [address] [place], [address] RDW CV Normal 11.6-14.6 [facility] Comment on above: Result Comment: Canc elled via OM: Order cancelled - Patient discharged Performed By: #### L 100.0100, L500.4050 ####[facility] [address] [place], [address] RDW SD Normal 35.1-43.9 [facility] Comment on above: Result Comment: Canc elled via OM: Order cancelled - Patient discharged Performed By: #### L 100.0100, L500.4050 ####[facility] [address] [place], [address] WBC Normal 4.4-11.0 [facility] Comment on above: Result Comment: Canc elled via OM: Order cancelled - Patient discharged Performed By: #### L 100.0100, L500.4050 ####[facility] [address] [place], [address] Comprehensive Metabolic Prof jony 09-25-2024 ALB Normal 3.4-4.8 [facility] Comment on above: Result Comment: Canc elled via OM: Order cancelled - Patient discharged Performed By: #### L 100.0100, L500.4050 ####[facility] [address] [place], [address] ALK PHOS Normal 35-104 [facility] Comment on above: Result Comment: Canc elled via OM: Order cancelled - Patient discharged Performed By: #### L 100.0100, L500.4050 ####[facility] [address] [place], [address] ALT Normal <=34 [facility] Comment on above: Result Comment: Canc elled via OM: Order cancelled - Patient discharged Performed By: #### L 100.0100, L500.4050 ####[facility] [address] [place], [address] AST Normal <=31 [facility] Comment on above: Result Comment: Canc elled via OM: Order cancelled - Patient discharged Performed By: #### L 100.0100, L500.4050 ####[facility] [address] [place], [address] BUN Normal 4-19 [facility] Comment on above: Result Comment: Canc elled via OM: Order cancelled - Patient discharged Performed By: #### L 100.0100, L500.4050 ####[facility] [address] [place], [address] BUN/CRE Normal 10-20 [facility] Comment on above: Result Comment: Canc elled via OM: Order cancelled - Patient discharged Performed By: #### L 100.0100, L500.4050 ####[facility] [address] [place], [address] Calcium Normal 7.6-11.0 [facility] Comment on above: Result Comment: Canc elled via OM: Order cancelled - Patient discharged Performed By: #### L 100.0100, L500.4050 ####[facility] [address] [place], [address] CL Normal 98-108 [facility] Comment on above: Result Comment: Canc elled via OM: Order cancelled - Patient discharged Performed By: #### L 100.0100, L500.4050 ####[facility] [address] [place], [address] CO2 Normal 21.0-32.0 [facility] Comment on above: Result Comment: Canc elled via OM: Order cancelled - Patient discharged Performed By: #### L 100.0100, L500.4050 ####[facility] [address] [place], [address] CREAT,SERUM Normal 0.70-1.20 [facility] Comment on above: Result Comment: Canc elled via OM: Order cancelled - Patient discharged Performed By: #### L 100.0100, L500.4050 ####[facility] [address] [place], [address] eGFR Normal >60 [facility] Comment on above: Result Comment: Canc elled via OM: Order cancelled - Patient discharged Performed By: #### L 100.0100, L500.4050 ####[facility] [address] [place], [address] GAP Normal 5-15 [facility] Comment on above: Result Comment: Canc elled via OM: Order cancelled - Patient discharged Performed By: #### L 100.0100, L500.4050 ####[facility] [address] [place], [address] GLU Normal 70-99 [facility] Comment on above: Result Comment: Canc elled via OM: Order cancelled - Patient discharged Performed By: #### L 100.0100, L500.4050 ####[facility] [address] [place], [address] Potassium Normal 3.3-5.1 [facility] Comment on above: Result Comment: Canc elled via OM: Order cancelled - Patient discharged Performed By: #### L 100.0100, L500.4050 ####[facility] [address] [place], [address] T BILI Normal 0.00-1.30 [facility] Comment on above: Result Comment: Canc elled via OM: Order cancelled - Patient discharged Performed By: #### L 100.0100, L500.4050 ####[facility] [address] [place], [address] T PROT Normal 5.9-8.4 [facility] Comment on above: Result Comment: Canc elled via OM: Order cancelled - Patient discharged Performed By: #### L 100.0100, L500.4050 ####[facility] [address] [place], [address] Comprehensive Metabolic Profil Normal 133-145 [facility] Comment on above: Result Comment: Canc elled via OM: Order cancelled - Patient discharged Performed By: #### L 100.0100, L500.4050 ####[facility] [address] [place], [address] CBC W/Diff, Automatedon 07-0 Absolute Neut Normal 2.0-7.7 [facility] Comment on above: Result Comment: Canc elled via OM: Order cancelled - Patient discharged Performed By: #### L 500.4050, L100.0100 ####[facility] [address] [place], [address] HCT Normal 37-47 [facility] Comment on above: Result Comment: Canc elled via OM: Order cancelled - Patient discharged Performed By: #### L 500.4050, L100.0100 ####[facility] [address] [place], [address] HGB Normal 12.0-15.0 [facility] Comment on above: Result Comment: Canc elled via OM: Order cancelled - Patient discharged Performed By: #### L 500.4050, L100.0100 ####[facility] [address] [place], [address] MCH Normal 27.0-32.0 [facility] Comment on above: Result Comment: Canc elled via OM: Order cancelled - Patient discharged Performed By: #### L 500.4050, L100.0100 ####[facility] [address] [place], [address] MCHC Normal 32-36 [facility] Comment on above: Result Comment: Canc elled via OM: Order cancelled - Patient discharged Performed By: #### L 500.4050, L100.0100 ####[facility] [address] [place], [address] MCV Normal 81-99 [facility] Comment on above: Result Comment: Canc elled via OM: Order cancelled - Patient discharged Performed By: #### L 500.4050, L100.0100 ####[facility] [address] [place], [address] NEUT% Normal 47-70 [facility] Comment on above: Result Comment: Canc elled via OM: Order cancelled - Patient discharged Performed By: #### L 500.4050, L100.0100 ####[facility] [address] [place], [address] PLT Normal 150-450 [facility] Comment on above: Result Comment: Canc elled via OM: Order cancelled - Patient discharged Performed By: #### L 500.4050, L100.0100 ####[facility] [address] [place], [address] RBC Normal 4.2-5.4 [facility] Comment on above: Result Comment: Canc elled via OM: Order cancelled - Patient discharged Performed By: #### L 500.4050, L100.0100 ####[facility] [address] [place], [address] RDW CV Normal 11.6-14.6 [facility] Comment on above: Result Comment: Canc elled via OM: Order cancelled - Patient discharged Performed By: #### L 500.4050, L100.0100 ####[facility] [address] [place], [address] RDW SD Normal 35.1-43.9 [facility] Comment on above: Result Comment: Canc elled via OM: Order cancelled - Patient discharged Performed By: #### L 500.4050, L100.0100 ####[facility] [address] [place], [address] WBC Normal 4.4-11.0 [facility] Comment on above: Result Comment: Canc elled via OM: Order cancelled - Patient discharged Performed By: #### L 500.4050, L100.0100 ####[facility] [address] [place], [address] Comprehensive Metabolic Prof ilon 09-24-2024 ALB Normal 3.4-4.8 [facility] Comment on above: Result Comment: Canc elled via OM: Order cancelled - Patient discharged Performed By: #### L 500.4050, L100.0100 ####[facility] [address] [place], [address] ALK PHOS Normal 35-104 [facility] Comment on above: Result Comment: Canc elled via OM: Order cancelled - Patient discharged Performed By: #### L 500.4050, L100.0100 ####[facility] [address] [place], [address] ALT Normal <=34 [facility] Comment on above: Result Comment: Canc elled via OM: Order cancelled - Patient discharged Performed By: #### L 500.4050, L100.0100 ####[facility] [address] [place], [address] AST Normal <=31 [facility] Comment on above: Result Comment: Canc elled via OM: Order cancelled - Patient discharged Performed By: #### L 500.4050, L100.0100 ####[facility] [address] [place], [address] BUN Normal 4-19 [facility] Comment on above: Result Comment: Canc elled via OM: Order cancelled - Patient discharged Performed By: #### L 500.4050, L100.0100 ####[facility] [address] [place], [address] BUN/CRE Normal 10-20 [facility] Comment on above: Result Comment: Canc elled via OM: Order cancelled - Patient discharged Performed By: #### L 500.4050, L100.0100 ####[facility] [address] [place], [address] Calcium Normal 7.6-11.0 [facility] Comment on above: Result Comment: Canc elled via OM: Order cancelled - Patient discharged Performed By: #### L 500.4050, L100.0100 ####[facility] [address] [place], [address] CL Normal 98-108 [facility] Comment on above: Result Comment: Canc elled via OM: Order cancelled - Patient discharged Performed By: #### L 500.4050, L100.0100 ####[facility] [address] [place], [address] CO2 Normal 21.0-32.0 [facility] Comment on above: Result Comment: Canc elled via OM: Order cancelled - Patient discharged Performed By: #### L 500.4050, L100.0100 ####[facility] [address] [place], [address] CREAT,SERUM Normal 0.70-1.20 [facility] Comment on above: Result Comment: Canc elled via OM: Order cancelled - Patient discharged Performed By: #### L 500.4050, L100.0100 ####[facility] [address] [place], [address] eGFR Normal >60 [facility] Comment on above: Result Comment: Canc elled via OM: Order cancelled - Patient discharged Performed By: #### L 500.4050, L100.0100 ####[facility] [address] [place], [address] GAP Normal 5-15 [facility] Comment on above: Result Comment: Canc elled via OM: Order cancelled - Patient discharged Performed By: #### L 500.4050, L100.0100 ####[facility] [address] [place], [address] GLU Normal 70-99 [facility] Comment on above: Result Comment: Canc elled via OM: Order cancelled - Patient discharged Performed By: #### L 500.4050, L100.0100 ####[facility] [address] [place], [address] Potassium Normal 3.3-5.1 [facility] Comment on above: Result Comment: Canc elled via OM: Order cancelled - Patient discharged Performed By: #### L 500.4050, L100.0100 ####[facility] [address] [place], [address] T BILI Normal 0.00-1.30 [facility] Comment on above: Result Comment: Canc elled via OM: Order cancelled - Patient discharged Performed By: #### L 500.4050, L100.0100 ####[facility] [address] [place], [address] T PROT Normal 5.9-8.4 [facility] Comment on above: Result Comment: Canc elled via OM: Order cancelled - Patient discharged Performed By: #### L 500.4050, L100.0100 ####[facility] [address] [place], [address] Comprehensive Metabolic Profil Normal 133-145 [facility] Comment on above: Result Comment: Canc elled via OM: Order cancelled - Patient discharged Performed By: #### L 500.4050, L100.0100 ####[facility] [address] [place], [address] CBC W/Diff, Automatedon 07-0 -2024 Absolute Neut Normal 2.0-7.7 [facility] Comment on above: Result Comment: Canc elled via OM: Order cancelled - Patient discharged Performed By: #### L 100.0100 ####[facility] [address] [place], [address] HCT Normal 37-47 [facility] Comment on above: Result Comment: Canc elled via OM: Order cancelled - Patient discharged Performed By: #### L 100.0100 ####[facility] [address] [place], [address] HGB Normal 12.0-15.0 [facility] Comment on above: Result Comment: Canc elled via OM: Order cancelled - Patient discharged Performed By: #### L 100.0100 ####[facility] [address] [place], [address] MCH Normal 27.0-32.0 [facility] Comment on above: Result Comment: Canc elled via OM: Order cancelled - Patient discharged Performed By: #### L 100.0100 ####[facility] [address] [place], [address] MCHC Normal 32-36 [facility] Comment on above: Result Comment: Canc elled via OM: Order cancelled - Patient discharged Performed By: #### L 100.0100 ####[facility] [address] [place], [address] MCV Normal 81-99 [facility] Comment on above: Result Comment: Canc elled via OM: Order cancelled - Patient discharged Performed By: #### L 100.0100 ####[facility] [address] [place], [address] NEUT% Normal 47-70 [facility] Comment on above: Result Comment: Canc elled via OM: Order cancelled - Patient discharged Performed By: #### L 100.0100 ####[facility] [address] [place], [address] PLT Normal 150-450 [facility] Comment on above: Result Comment: Canc elled via OM: Order cancelled - Patient discharged Performed By: #### L 100.0100 ####[facility] [address] [place], [address] RBC Normal 4.2-5.4 [facility] Comment on above: Result Comment: Canc elled via OM: Order cancelled - Patient discharged Performed By: #### L 100.0100 ####[facility] [address] [place], [address] RDW CV Normal 11.6-14.6 [facility] Comment on above: Result Comment: Canc elled via OM: Order cancelled - Patient discharged Performed By: #### L 100.0100 ####[facility] [address] [place], [address] RDW SD Normal 35.1-43.9 [facility] Comment on above: Result Comment: Canc elled via OM: Order cancelled - Patient discharged Performed By: #### L 100.0100 ####[facility] [address] [place], [address] WBC Normal 4.4-11.0 [facility] Comment on above: Result Comment: Canc elled via OM: Order cancelled - Patient discharged Performed By: #### L 100.0100 ####[facility] [address] [place], [address] Comprehensive Metabolic Prof ilon 09-23-2024 ALB Normal 3.4-4.8 [facility] Comment on above: Result Comment: Canc elled via OM: Order cancelled - Patient discharged Performed By: #### L 500.4050 ####[facility] [address] [place], [address] ALK PHOS Normal 35-104 [facility] Comment on above: Result Comment: Canc elled via OM: Order cancelled - Patient discharged Performed By: #### L 500.4050 ####[facility] [address] [place], [address] ALT Normal <=34 [facility] Comment on above: Result Comment: Canc elled via OM: Order cancelled - Patient discharged Performed By: #### L 500.4050 ####[facility] [address] [place], [address] AST Normal <=31 [facility] Comment on above: Result Comment: Canc elled via OM: Order cancelled - Patient discharged Performed By: #### L 500.4050 ####[facility] [address] [place], [address] BUN Normal 4-19 [facility] Comment on above: Result Comment: Canc elled via OM: Order cancelled - Patient discharged Performed By: #### L 500.4050 ####[facility] [address] [place], [address] BUN/CRE Normal 10-20 [facility] Comment on above: Result Comment: Canc elled via OM: Order cancelled - Patient discharged Performed By: #### L 500.4050 ####[facility] [address] [place], [address] Calcium Normal 7.6-11.0 [facility] Comment on above: Result Comment: Canc elled via OM: Order cancelled - Patient discharged Performed By: #### L 500.4050 ####[facility] [address] [place], [address] CL Normal 98-108 [facility] Comment on above: Result Comment: Canc elled via OM: Order cancelled - Patient discharged Performed By: #### L 500.4050 ####[facility] [address] [place], [address] CO2 Normal 21.0-32.0 [facility] Comment on above: Result Comment: Canc elled via OM: Order cancelled - Patient discharged Performed By: #### L 500.4050 ####[facility] [address] [place], [address] CREAT,SERUM Normal 0.70-1.20 [facility] Comment on above: Result Comment: Canc elled via OM: Order cancelled - Patient discharged Performed By: #### L 500.4050 ####[facility] [address] [place], [address] eGFR Normal >60 [facility] Comment on above: Result Comment: Canc elled via OM: Order cancelled - Patient discharged Performed By: #### L 500.4050 ####[facility] [address] [place], [address] GAP Normal 5-15 [facility] Comment on above: Result Comment: Canc elled via OM: Order cancelled - Patient discharged Performed By: #### L 500.4050 ####[facility] [address] [place], [address] GLU Normal 70-99 [facility] Comment on above: Result Comment: Canc elled via OM: Order cancelled - Patient discharged Performed By: #### L 500.4050 ####[facility] [address] [place], [address] Potassium Normal 3.3-5.1 [facility] Comment on above: Result Comment: Canc elled via OM: Order cancelled - Patient discharged Performed By: #### L 500.4050 ####[facility] [address] [place], [address] T BILI Normal 0.00-1.30 [facility] Comment on above: Result Comment: Canc elled via OM: Order cancelled - Patient discharged Performed By: #### L 500.4050 ####[facility] [address] [place], [address] T PROT Normal 5.9-8.4 [facility] Comment on above: Result Comment: Canc elled via OM: Order cancelled - Patient discharged Performed By: #### L 500.4050 ####[facility] [address] [place], [address] Comprehensive Metabolic Profil Normal 133-145 [facility] Comment on above: Result Comment: Canc elled via OM: Order cancelled - Patient discharged Performed By: #### L 500.4050 ####[facility] [address] [place], [address] Absolute lymphocyte countOrd ered By: Ricardo Fontana on 09-22-2024 Lymphocytes Auto (Unsp spec) [#/Vol] 1.48 10*3/uL 0.83-4.51 [facility] Absolute neutrophil countOrd ered By: Ricardo Fontana on 09-22-2024 Neutrophils (Bld) [#/Vol] 3.4 10*3/uL 2.0-7.7 [facility] Anion gap in Serum or Plasma Ordered By: Ricardo Fontana on 09-22-2024 Anion gap [Moles/Vol] 8 mmol/L 5-15 [facility] Automated lymphocyte count a s percentage of total leukocytesOrdered By: Ricardo Fontana on 09-22-2024 Lymphocytes/100 WBC Auto (Unsp spec) 26.9 % 19-41 [facility] BUN/creatinine ratioOrdered By: Ricardo Fontana on 09-22-2024 Urea nitrogen/Creatinine [Mass ratio] 9.7 mg/mg Low 10-20 [facility] Basophil percentageOrdered B y: Ricardo Fontana on 09-22-2024 Basophils/100 WBC (Bld) 0.5 % 0-1 [facility] Bilirubin, totalOrdered By: Ricardo Fontana on 09-22-2024 Bilirubin [Mass/Vol] 0.46 mg/dL 0.00-1.30 [facility] Brain/Head without Contrasto n 09-22-2024 Brain/Head without Contrast Normal [facility] CBC W/Diff, Automatedon 07- Absolute Lymph 1.48 X10 3/uL Normal 0.83-4.51 [facility] Comment on above: Performed By: #### L 500.4050, L100.0100, L501.2300, L500.4100 ####[facility] [address] [place], [address] Absolute Neut 3.4 X10 3/uL Normal 2.0-7.7 [facility] Comment on above: Performed By: #### L 500.4050, L100.0100, L501.2300, L500.4100 ####[facility] [address] [place], [address] Basophils/100 WBC (Bld) 0.5 % Normal 0-1 [facility] Comment on above: Performed By: #### L 500.4050, L100.0100, L501.2300, L500.4100 ####[facility] [address] [place], [address] Eosinophils/100 WBC (Bld) 1.8 % Normal 0-5 [facility] Comment on above: Performed By: #### L 500.4050, L100.0100, L501.2300, L500.4100 ####[facility] [address] [place], [address] Erythrocyte distribution width (RBC) [Ratio] 13.8 % Normal 11.6-14.6 [facility] Comment on above: Performed By: #### L 500.4050, L100.0100, L501.2300, L500.4100 ####[facility] [address] [place], [address] Hematocrit (Bld) [Volume fraction] 33.1 % Low 37-47 [facility] Comment on above: Performed By: #### L 500.4050, L100.0100, L501.2300, L500.4100 ####[facility] [address] [place], [address] Hemoglobin (Bld) [Mass/Vol] 10.8 g/dL Low 12.0-15.0 [facility] Comment on above: Performed By: #### L 500.4050, L100.0100, L501.2300, L500.4100 ####[facility] [address] [place], [address] IG% 0.400 Normal 0.0-0.9 [facility] Comment on above: Result Comment: IG% - Immature Granulocytes (promyelocytes, myelocytes andmetamyelocytes) > 1% indicates that a LEFT SHIFT is Present. Performed By: #### L 500.4050, L100.0100, L501.2300, L500.4100 ####[facility] [address] [place], [address] Lymphocytes/100 WBC (Bld) 26.9 % Normal 19-41 [facility] Comment on above: Performed By: #### L 500.4050, L100.0100, L501.2300, L500.4100 ####[facility] [address] [place], [address] MCH (RBC) [Entitic mass] 31.3 pg Normal 27.0-32.0 [facility] Comment on above: Performed By: #### L 500.4050, L100.0100, L501.2300, L500.4100 ####[facility] [address] [place], [address] MCHC (RBC) [Mass/Vol] 32.6 g/dL Normal 32-36 [facility] Comment on above: Performed By: #### L 500.4050, L100.0100, L501.2300, L500.4100 ####[facility] [address] [place], [address] MCV (RBC) [Entitic vol] 95.9 fL Normal 81-99 [facility] Comment on above: Performed By: #### L 500.4050, L100.0100, L501.2300, L500.4100 ####[facility] [address] [place], [address] Monocytes/100 WBC (Bld) 8.5 % Normal 0-10 [facility] Comment on above: Performed By: #### L 500.4050, L100.0100, L501.2300, L500.4100 ####[facility] [address] [place], [address] Neutrophils/100 WBC (Bld) 61.9 % Normal 47-70 [facility] Comment on above: Performed By: #### L 500.4050, L100.0100, L501.2300, L500.4100 ####[facility] [address] [place], [address] Nucleated RBC (Bld) [#/Vol] 0 10*3/uL Normal 0-5 [facility] Comment on above: Performed By: #### L 500.4050, L100.0100, L501.2300, L500.4100 ####[facility] [address] [place], [address] Platelet mean volume (Bld) [Entitic vol] 9.2 fL Normal 6.2-12.0 [facility] Comment on above: Performed By: #### L 500.4050, L100.0100, L501.2300, L500.4100 ####[facility] [address] [place], [address] Platelets (Bld) [#/Vol] 319 10*3/uL Normal 150-450 [facility] Comment on above: Performed By: #### L 500.4050, L100.0100, L501.2300, L500.4100 ####[facility] [address] [place], [address] RBC (Bld) [#/Vol] 3.45 10*6/uL Low 4.2-5.4 [facility] Comment on above: Performed By: #### L 500.4050, L100.0100, L501.2300, L500.4100 ####[facility] [address] [place], [address] RDW SD 48.6 fl High 35.1-43.9 [facility] Comment on above: Performed By: #### L 500.4050, L100.0100, L501.2300, L500.4100 ####[facility] [address] [place], [address] WBC (Bld) [#/Vol] 5.5 10*3/uL Normal 4.4-11.0 [facility] Comment on above: Performed By: #### L 500.4050, L100.0100, L501.2300, L500.4100 ####[facility] [address] [place], [address] CO2 (BldV) [Moles/Vol]Ordere d By: Ricardo Fontana on 09-22-2024 CO2 [Moles/Vol] 30 mmol/L 23-33 [facility] Calculated very low density lipoprotein (VLDL) cholesterol measurementOrdered By: Ricardo Fontana on 09-22-2024 Calculated very low density lipoprotein (VLDL) cholesterol measurement 16 mg/dL 5-40 [facility] Carbon dioxide, total [Moles /volume] in Central venous bloodOrdered By: Ricardo Fontana on 09-22-2024 CO2 [Moles/Vol] 23.5 mmol/L 21.0-32.0 [facility] Chloride assayOrdered By: [place] on 09-22-2024 Chloride [Moles/Vol] 111 mmol/L High 98-108 [facility] Comprehensive Metabolic Prof ilon 09-22-2024 Albumin [Mass/Vol] 2.9 g/dL Low 3.4-4.8 [facility] Comment on above: Performed By: #### L 500.4050, L100.0100, L501.2300, L500.4100 ####[facility] [address] [place], [address] Albumin/Globulin [Mass ratio] 1.1 {ratio} Normal 0.9-2.4 [facility] Comment on above: Performed By: #### L 500.4050, L100.0100, L501.2300, L500.4100 ####[facility] [address] [place], [address] ALK PHOS 98 U/L Normal 35-104 [facility] Comment on above: Performed By: #### L 500.4050, L100.0100, L501.2300, L500.4100 ####[facility] [address] [place], [address] ALT [Catalytic activity/Vol] 11 U/L Normal <=34 [facility] Comment on above: Performed By: #### L 500.4050, L100.0100, L501.2300, L500.4100 ####[facility] [address] [place], [address] AST [Catalytic activity/Vol] 26 U/L Normal <=31 [facility] Comment on above: Performed By: #### L 500.4050, L100.0100, L501.2300, L500.4100 ####[facility] [address] [place], [address] Bilirubin [Mass/Vol] 0.46 mg/dL Normal 0.00-1.30 [facility] Comment on above: Performed By: #### L 500.4050, L100.0100, L501.2300, L500.4100 ####[facility] [address] [place], [address] BUN/CRE 9.7 RATIO Low 10-20 [facility] Comment on above: Performed By: #### L 500.4050, L100.0100, L501.2300, L500.4100 ####[facility] [address] [place], [address] Calcium [Mass/Vol] 8.5 mg/dL Normal 7.6-11.0 [facility] Comment on above: Performed By: #### L 500.4050, L100.0100, L501.2300, L500.4100 ####[facility] [address] [place], [address] Chloride [Moles/Vol] 111 mmol/L High 98-108 [facility] Comment on above: Performed By: #### L 500.4050, L100.0100, L501.2300, L500.4100 ####[facility] [address] [place], [address] CO2 [Moles/Vol] 23.5 mmol/L Normal 21.0-32.0 [facility] Comment on above: Performed By: #### L 500.4050, L100.0100, L501.2300, L500.4100 ####[facility] [address] [place], [address] Creatinine [Mass/Vol] 0.74 mg/dL Normal 0.70-1.20 [facility] Comment on above: Result Comment: QC O K Performed By: #### L 500.4050, L100.0100, L501.2300, L500.4100 ####[facility] [address] [place], [address] ECRCL 46.56 ml/min Low 50-250 [facility] Comment on above: Performed By: #### L 500.4050, L100.0100, L501.2300, L500.4100 ####[facility] [address] [place], [address] GAP 8 Normal 5-15 [facility] Comment on above: Performed By: #### L 500.4050, L100.0100, L501.2300, L500.4100 ####[facility] [address] [place], [address] GFR/1.73 sq M.predicted among non-blacks MDRD (S/P/Bld) [Vol rate/Area] 86 mL/min/{1.73_m2} Normal >60 [facility] Comment on above: Result Comment: mL/m in/1.73m2 CKD-EPI Creatinine Equation (2020) Performed By: #### L 500.4050, L100.0100, L501.2300, L500.4100 ####[facility] [address] [place], [address] Globulin (S) [Mass/Vol] 2.7 g/dL Normal 2.2-4.2 [facility] Comment on above: Performed By: #### L 500.4050, L100.0100, L501.2300, L500.4100 ####[facility] [address] [place], [address] Glucose [Mass/Vol] 76 mg/dL Normal 70-99 [facility] Comment on above: Performed By: #### L 500.4050, L100.0100, L501.2300, L500.4100 ####[facility] [address] [place], [address] Potassium [Moles/Vol] 3.7 mmol/L Normal 3.3-5.1 [facility] Comment on above: Performed By: #### L 500.4050, L100.0100, L501.2300, L500.4100 ####[facility] [address] [place], [address] Sodium [Moles/Vol] 143 mmol/L Normal 133-145 [facility] Comment on above: Performed By: #### L 500.4050, L100.0100, L501.2300, L500.4100 ####[facility] [address] [place], [address] T PROT 5.6 g/dL Low 5.9-8.4 [facility] Comment on above: Performed By: #### L 500.4050, L100.0100, L501.2300, L500.4100 ####[facility] [address] [place], [address] Urea nitrogen [Mass/Vol] 7 mg/dL Normal 4-19 [facility] Comment on above: Performed By: #### L 500.4050, L100.0100, L501.2300, L500.4100 ####[facility] [address] [place], [place], [id number] D-Dimer Quantitative (DVT/PE )on 09-22-2024 D-DIMER QUANT 0.32 FEU/ug/m Normal 0.27-0.49 [facility] Comment on above: Result Comment: NORM AL D-Dimer level (<0.50) indicates no DVT or PE. Performed By: #### L 300.8000 ####[facility] [address] [place], [place], [id number] Discharge Instructionon 07-0 Discharge Instruction Normal [facility] Eosinophil percentageOrdered By: Ricardo Fontana on 09-22-2024 Eosinophils/100 WBC (Bld) 1.8 % 0-5 [facility] Erythrocyte distribution wid th ratioOrdered By: Ricardo Fontana on 09-22-2024 Erythrocyte distribution width (RBC) [Ratio] 13.8 % 11.6-14.6 [facility] Erythrocyte distribution wid th standard deviationOrdered By: Ricardo Fontana on 09-22-2024 Erythrocyte distribution width (RBC) [Ratio] 48.6 fl High 35.1-43.9 [facility] Glomerular filtration rate ( GFR) estimation/1.73 sq m using serum, plasma, or whole bOrdered By: Ricardo Fontana on 09-22-2024 GFR/1.73 sq M.predicted among non-blacks MDRD (S/P/Bld) [Vol rate/Area] 86 mL/min/{1.73_m2} >60 [facility] Comment on above: mL/min/1.73m2 CKD-EP I Creatinine Equation (2020) Hematocrit Auto (Bld) [Volum e fraction]Ordered By: Ricardo Fontana on 09-22-2024 Hematocrit (Bld) [Volume fraction] 33.1 % Low 37-47 [facility] Hemoglobin measurementOrdere d By: Ricardo Fontana on 09-22-2024 Hemoglobin (Bld) [Mass/Vol] 10.8 g/dL Low 12.0-15.0 [facility] Immature granulocytes/100 WB C Auto (Bld)Ordered By: Ricardo Fontana on 09-22-2024 Immature granulocytes/100 WBC (Bld) 0.400 % 0.0-0.9 [facility] Comment on above: IG% - Immature Granu locytes (promyelocytes, myelocytes and metamyelocytes) > 1% indicates that a LEFT SHIFT is Present. LDL calc ser/plasOrdered By: Ricardo Fontana on 09-22-2024 Cholesterol in LDL [Mass/Vol] 132 mg/dL [facility] Comment on above: Uewkafwrxd=540-178 m g/dL & Higher Iwbs=265 mg/dL or greater Laboratory - Chemistry and C hemistry - challengeOrdered By: Ricardo Fontana on 09-22-2024 AST [Catalytic activity/Vol] 26 U/L <32 [facility] Lipid Profileon 09-22-2024 CHOL:HDL 3.16 Normal [facility] Comment on above: Performed By: #### L 500.4050, L100.0100, L501.2300, L500.4100 ####[facility] [address] [place], [place], [id number] Cholesterol [Mass/Vol] 217 mg/dL High <=200 [facility] Comment on above: Result Comment: Chol esterol level, Desirable <200 mg/dLBorderline high cholesterol 200-239 mg/dLHigh cholesterol >=240 mg/dLRecommendations of the NCEP Adult Treatment Panel for thefollowing risk-cutoff thresholds for the [place] Americanpulation. Performed By: #### L 500.4050, L100.0100, L501.2300, L500.4100 ####[facility] [address] [place], [address] Cholesterol in HDL [Mass/Vol] 69 mg/dL Normal [facility] Comment on above: Result Comment: Breanna onal Cholesterol Education Program (NCEP) guidelines:<40 mg/dL: Low HDL-cholesterol (major risk factor for CHD)>= 60 mg/dL: High HDL-cholesterol (negative risk factor forCHD)HDL-cholesterol is affected by a number of factors, e.g.smoking, exercise, hormones, sex and age. Performed By: #### L 500.4050, L100.0100, L501.2300, L500.4100 ####[facility] [address] [place], [address] Cholesterol in LDL [Mass/Vol] 132 mg/dL Normal [facility] Comment on above: Result Comment: Bord fgvnfd=317-725 mg/dL Higher Zamt=142 mg/dL or greater Performed By: #### L 500.4050, L100.0100, L501.2300, L500.4100 ####[facility] [address] [place], [address] Cholesterol in VLDL [Mass/Vol] 16 mg/dL Normal 5-40 [facility] Comment on above: Performed By: #### L 500.4050, L100.0100, L501.2300, L500.4100 ####[facility] [address] [place], [address] Triglyceride [Mass/Vol] 81 mg/dL Normal [facility] [place] [facility] Comment on above: Result Comment: The drugs N-Acetylcysteine and Metamizole may falselydepress this assay.Normal range: <150 mg/dLBorderline High: 150-199 mg/dLHigh: 200-499 mg/dLVery High: >500 mg/dL Performed By: #### L 500.4050, L100.0100, L501.2300, L500.4100 ####[facility] [address] [place], [address] MCV (mean corpuscular volume ) determinationOrdered By: Ricardo Fontana on 09-22-2024 MCV (RBC) [Entitic vol] 95.9 fL 81-99 [facility] Mean corpuscular hemoglobin (MCH) determinationOrdered By: Ricardo Fontana on 09-22-2024 MCH (RBC) [Entitic mass] 31.3 pg 27.0-32.0 [facility] Mean corpuscular hemoglobin concentration (MCHC) determinationOrdered By: Ricardo Fontana on 09-22-2024 MCHC (RBC) [Mass/Vol] 32.6 g/dL 32-36 [facility] Mean platelet volume determi nationOrdered By: Ricardo Fontana on 09-22-2024 Platelet mean volume (Bld) [Entitic vol] 9.2 fL 6.2-12.0 [facility] Monocyte percentageOrdered B y: Ricardo Fontana on 09-22-2024 Monocytes/100 WBC (Bld) 8.5 % 0-10 [facility] Neutrophil percentageOrdered By: Ricardo Fontana on 09-22-2024 Neutrophils/100 WBC (Bld) 61.9 % 47-70 [facility] No Panel InformationOrdered By: Ricardo Fontana on 09-22-2024 Blood Gas Sample Site VENOUS [facility] Blood Gas Specimen Type PEYTON [facility] Oxygen Delivery Device Room Air [facility] PEYTON [facility] VENOUS [facility] Room Air [facility] 26 U/L <32 [facility] Nucleated red blood cell per centageOrdered By: Ricardo Fontana on 09-22-2024 Nucleated RBC/100 WBC (Bld) [Ratio] 0 % 0-5 [facility] Phosphoruson 09-22-2024 Phosphate [Mass/Vol] 3.1 mg/dL Normal 2.7-4.5 [facility] Comment on above: Performed By: #### L 500.4050, L100.0100, L501.2300, L500.4100 ####[facility] [address] [place], [address] Platelet countOrdered By: [place] Fontana on 09-22-2024 Platelets (Bld) [#/Vol] 319 10*3/uL 150-450 [facility] Potassium measurement (mass/ volume)Ordered By: Ricardo Fontana on 09-22-2024 Potassium (Unsp spec) [Mass/Vol] 3.7 mmol/L 3.3-5.1 [facility] RBC Auto (Bld) [#/Vol]Ordere d By: Ricardo Fontana on 09-22-2024 RBC (Bld) [#/Vol] 3.45 10*6/uL Low 4.2-5.4 [facility] Screening total cholesterol/ high density lipoprotein (HDL) cholesterol ratioOrdered By: Ricardo Fontana on 09-22-2024 Cholesterol.total/Tamera sterol in HDL [Mass ratio] 3.16 {ratio} [facility] Serum creatinine measurement (mass/volume)Ordered By: Ricardo Fontana on 09-22-2024 Creatinine [Mass/Vol] 0.74 mg/dL 0.70-1.20 [facility] Comment on above: OK Serum globulin measurementOr dered By: Ricardo Fontana on 09-22-2024 Globulin (S) [Mass/Vol] 2.7 g/dL 2.2-4.2 [facility] Serum glucose measurement (m ass/volume)Ordered By: Ricardo Fontana on 09-22-2024 Glucose [Mass/Vol] 76 mg/dL 70-99 [facility] Serum or plasma alanine soliz otransferase (ALT) measurementOrdered By: Ricardo Fontana on 09-22-2024 ALT [Catalytic activity/Vol] 11 U/L <35 [facility] Serum or plasma albumin rosangela urement (mass/volume)Ordered By: Ricardo Fontana on 09-22-2024 Albumin [Mass/Vol] 2.9 g/dL Low 3.4-4.8 [facility] Serum or plasma albumin/glob ulin mass ratioOrdered By: Ricardo Fontana on 09-22-2024 Albumin/Globulin [Mass ratio] 1.1 {ratio} 0.9-2.4 [facility] Serum or plasma alkaline faustino sphatase measurementOrdered By: Ricardo Fontana on 09-22-2024 ALP [Catalytic activity/Vol] 98 U/L 35-104 [facility] Serum or plasma calcium rosangela urement (mass/volume)Ordered By: Ricardo Fontana on 09-22-2024 Calcium [Mass/Vol] 8.5 mg/dL 7.6-11.0 [facility] Serum or plasma cholesterol in HDL measurement (mass/volume)Ordered By: Ricardo Fontana on 09-22-2024 Cholesterol in HDL [Mass/Vol] 69 mg/dL >40 [facility] Comment on above: National Cholesterol Education Program (NCEP) guidelines:<40 mg/dL: Low HDL-cholesterol (major risk factor for CHD)>= 60 mg/dL: High HDL-cholesterol (negative risk factor for CHD)HDL-cholesterol is affected by a number of factors, e.g. smoking, exercise, hormones, sex and age. Serum or plasma cholesterol measurement (mass/volume)Ordered By: Ricardo Fontana on 09-22-2024 Cholesterol [Mass/Vol] 217 mg/dL High <201 [facility] Comment on above: Cholesterol level, D esirable <200 mg/dLBorderline high cholesterol 200-239 mg/dLHigh cholesterol >=240 mg/dLRecommendations of the NCEP Adult Treatment Panel for the following risk-cutoff thresholds for the [place] population. Serum or plasma urea nitroge n measurement (mass/volume)Ordered By: Ricardo Fontana on 09-22-2024 Urea nitrogen [Mass/Vol] 7 mg/dL 4-19 [facility] Sodium levelOrdered By: Ulices Fontana on 09-22-2024 Sodium [Moles/Vol] 143 mmol/L 133-145 [facility] Total proteinOrdered By: Manohar Fontana on 09-22-2024 Protein [Mass/Vol] 5.6 g/dL Low 5.9-8.4 [facility] Triglycerides measurementOrd ered By: Ricardo Fontana on 09-22-2024 Triglyceride [Mass/Vol] 81 mg/dL <199 [facility] Comment on above: The drugs N-Acetylcy steine and Metamizole may falsely depress this assay. Normal range: <150 mg/dLBorderline High: 150-199 mg/dLHigh: 200-499 mg/dLVery High: >500 mg/dL Venous Blood Gason Blood Gas Type PEYTON Normal [facility] Comment on above: Performed By: #### L 9000.0810 ####[facility] [address] [place], [address] CO2 [Moles/Vol] 30 mmol/L Normal 23-33 [facility] Comment on above: Performed By: #### L 9000.0810 ####[facility] [address] [place], [address] HCO3 (Bld) [Moles/Vol] 29 mmol/L High 22-26 [facility] Comment on above: Performed By: #### L 9000.0810 ####[facility] [address] [place], [address] O2 Delivery Dev Room Air Normal [facility] Comment on above: Performed By: #### L 9000.0810 ####[facility] [address] [place], [address] SITE VENOUS Normal [facility] Comment on above: Performed By: #### L 9000.0810 ####[facility] [address] [place], [address] VBG BE 4 mmol/L High -1.0-3.5 [facility] Comment on above: Performed By: #### L 9000.0810 ####[facility] [address] [place], [address] VBG pCO2 48.3 mmHg Normal 41-51 [facility] Comment on above: Performed By: #### L 9000.0810 ####[facility] [address] [place], [address] VBG pH 7.39 Normal 7.32-7.42 [facility] Comment on above: Performed By: #### L 9000.0810 ####[facility] [address] [place], [address] VBG PO2 39 mmHg Normal 25-40 [facility] Comment on above: Performed By: #### L 9000.0810 ####[facility] [address] [place], [address] VBG SO2 72 High 50-70 [facility] Comment on above: Performed By: #### L 9000.0810 ####[facility] [address] [place], [address] Venous blood base excess eliezer surementOrdered By: Ricardo Fontana on 09-22-2024 Base excess Calc (BldV) [Moles/Vol] 4 mmol/L High -1.0-3.5 [facility] Venous blood bicarbonate eliezer surementOrdered By: Ricardo Fontana on 09-22-2024 HCO3 (Bld) [Moles/Vol] 29 mmol/L High 22-26 [facility] Venous blood oxygen saturati on measurementOrdered By: Ricardo Fontana on 09-22-2024 Oxygen saturation in Blood 72 % High 50-70 [facility] Venous blood pH measurementO rdered By: Ricardo Fontana on 09-22-2024 pH (BldV) 7.39 [pH] 7.32-7.42 [facility] Venous blood partial pressur e of carbon dioxide measurementOrdered By: Ricardo Fontana on 09-22-2024 CO2 (BldV) [Partial pressure] 48.3 mm[Hg] 41-51 [facility] Venous blood partial pressur e of oxygen measurementOrdered By: Ricardo Fontana on 09-22-2024 Oxygen (BldV) [Partial pressure] 39 mm[Hg] 25-40 [facility] White blood cell (WBC) count Ordered By: Ricardo Fontana on 09-22-2024 WBC (Bld) [#/Vol] 5.5 10*3/uL 4.4-11.0 [facility] 12 Lead EKGon 09-21-2024 12 Lead EKG Normal [facility] Absolute lymphocyte countOrd ered By: Guilherme Collins on 09-21-2024 Lymphocytes Auto (Unsp spec) [#/Vol] 0.90 10*3/uL 0.83-4.51 [facility] Absolute neutrophil countOrd ered By: Guilherme Collins on 09-21-2024 Neutrophils (Bld) [#/Vol] 6.4 10*3/uL 2.0-7.7 [facility] Alcohol, Blood (Medical)-Ser umon 09-21-2024 SERUM ETOH < 10.1 Normal <=10.0 [facility] Comment on above: Result Comment: This test is for medical purposes only. The legaldefinition of intoxication varies according to local law. Performed By: #### L 501.9100, L505.5000 ####[facility] [address] [place], [address] Amphetamine detection with 1 000 ng/mL as cutoffOrdered By: Ricardo Fontana on 09-21-2024 Amphetamines Screen method >1000 ng/mL Ql (U) Negative < 200 ng/mL [facility] Anion gap in Serum or Plasma Ordered By: Guilherme Collins on 09-21-2024 Anion gap [Moles/Vol] 10 mmol/L 5-15 [facility] Automated lymphocyte count a s percentage of total leukocytesOrdered By: Guilherme Collins on 09-21-2024 Lymphocytes/100 WBC Auto (Unsp spec) 11.2 % Low 19-41 [facility] BUN/creatinine ratioOrdered By: Guilherme Collins on 09-21-2024 Urea nitrogen/Creatinine [Mass ratio] 8.7 mg/mg Low 10-20 [facility] Basophil percentageOrdered B y: Guilherme Collins on 09-21-2024 Basophils/100 WBC (Bld) 0.4 % 0-1 [facility] Bilirubin Test strip Ql (U)O rdered By: Guilherme Collins on 09-21-2024 Bilirubin Ql (U) Negative Negative [facility] Bilirubin, totalOrdered By: Guilherme Collins on 09-21-2024 Bilirubin [Mass/Vol] 0.47 mg/dL 0.00-1.30 [facility] Blood cultureOrdered By: Aayush Collins on 09-21-2024 Bacteria identified Cx Nom (Bld) No growth in 5 days. [facility] Bacteria identified Cx Nom (Bld) No growth in 5 days. [facility] Brain/Head without Contrasto n 09-21-2024 Brain/Head without Contrast Normal [facility] CBC W/Diff, Automatedon 07 Absolute Lymph 0.90 X10 3/uL Normal 0.83-4.51 [facility] Comment on above: Performed By: #### L 100.0100, L503.6005, L500.4050 ####[facility] [address] [place], [address] Absolute Neut 6.4 X10 3/uL Normal 2.0-7.7 [facility] Comment on above: Performed By: #### L 100.0100, L503.6005, L500.4050 ####[facility] [address] [place], [address] Basophils/100 WBC (Bld) 0.4 % Normal 0-1 [facility] Comment on above: Performed By: #### L 100.0100, L503.6005, L500.4050 ####[facility] [address] [place], [address] Eosinophils/100 WBC (Bld) 0.2 % Normal 0-5 [facility] Comment on above: Performed By: #### L 100.0100, L503.6005, L500.4050 ####[facility] [address] [place], [address] Erythrocyte distribution width (RBC) [Ratio] 13.8 % Normal 11.6-14.6 [facility] Comment on above: Performed By: #### L 100.0100, L503.6005, L500.4050 ####[facility] [address] [place], [address] Hematocrit (Bld) [Volume fraction] 34.9 % Low 37-47 [facility] Comment on above: Performed By: #### L 100.0100, L503.6005, L500.4050 ####[facility] [address] [place], [address] Hemoglobin (Bld) [Mass/Vol] 11.4 g/dL Low 12.0-15.0 [facility] Comment on above: Performed By: #### L 100.0100, L503.6005, L500.4050 ####[facility] [address] [place], [address] IG% 0.200 Normal 0.0-0.9 [facility] Comment on above: Result Comment: IG% - Immature Granulocytes (promyelocytes, myelocytes andmetamyelocytes) > 1% indicates that a LEFT SHIFT is Present. Performed By: #### L 100.0100, L503.6005, L500.4050 ####[facility] [address] [place], [address] Lymphocytes/100 WBC (Bld) 11.2 % Low 19-41 [facility] Comment on above: Performed By: #### L 100.0100, L503.6005, L500.4050 ####[facility] [address] [place], [address] MCH (RBC) [Entitic mass] 31.3 pg Normal 27.0-32.0 [facility] Comment on above: Performed By: #### L 100.0100, L503.6005, L500.4050 ####[facility] [address] [place], [address] MCHC (RBC) [Mass/Vol] 32.7 g/dL Normal 32-36 [facility] Comment on above: Performed By: #### L 100.0100, L503.6005, L500.4050 ####[facility] [address] [place], [address] MCV (RBC) [Entitic vol] 95.9 fL Normal 81-99 [facility] Comment on above: Performed By: #### L 100.0100, L503.6005, L500.4050 ####[facility] [address] [place], [address] Monocytes/100 WBC (Bld) 8.7 % Normal 0-10 [facility] Comment on above: Performed By: #### L 100.0100, L503.6005, L500.4050 ####[facility] [address] [place], [address] Neutrophils/100 WBC (Bld) 79.3 % High 47-70 [facility] Comment on above: Performed By: #### L 100.0100, L503.6005, L500.4050 ####[facility] [address] [place], [address] Nucleated RBC (Bld) [#/Vol] 0 10*3/uL Normal 0-5 [facility] Comment on above: Performed By: #### L 100.0100, L503.6005, L500.4050 ####[facility] [address] [place], [address] Platelet mean volume (Bld) [Entitic vol] 10.0 fL Normal 6.2-12.0 [facility] Comment on above: Performed By: #### L 100.0100, L503.6005, L500.4050 ####[facility] [address] [place], [address] Platelets (Bld) [#/Vol] 339 10*3/uL Normal 150-450 [facility] Comment on above: Performed By: #### L 100.0100, L503.6005, L500.4050 ####[facility] [address] [place], [address] RBC (Bld) [#/Vol] 3.64 10*6/uL Low 4.2-5.4 [facility] Comment on above: Performed By: #### L 100.0100, L503.6005, L500.4050 ####[facility] [address] [place], [address] RDW SD 48.4 fl High 35.1-43.9 [facility] Comment on above: Performed By: #### L 100.0100, L503.6005, L500.4050 ####[facility] [address] [place], [address] WBC (Bld) [#/Vol] 8.0 10*3/uL Normal 4.4-11.0 [facility] Comment on above: Performed By: #### L 100.0100, L503.6005, L500.4050 ####[facility] [address] [place], [address] Carbon dioxide, total [Moles /volume] in Central venous bloodOrdered By: Guilherme Collins on 09-21-2024 CO2 [Moles/Vol] 24.7 mmol/L 21.0-32.0 [facility] Chest PA and Lateralon 09-21 Chest PA and Lateral Normal [facility] Chest without Contraston Chest without Contrast Normal [facility] Chloride assayOrdered By: Mansoor Collins on 09-21-2024 Chloride [Moles/Vol] 105 mmol/L 98-108 [facility] Comprehensive Metabolic Prof ilon 09-21-2024 Albumin [Mass/Vol] 3.3 g/dL Low 3.4-4.8 [facility] Comment on above: Performed By: #### L 100.0100, L503.6005, L500.4050 ####[facility] [address] [place], [address] Albumin/Globulin [Mass ratio] 1.1 {ratio} Normal 0.9-2.4 [facility] Comment on above: Performed By: #### L 100.0100, L503.6005, L500.4050 ####[facility] [address] [place], [address] ALK PHOS 113 U/L High 35-104 [facility] Comment on above: Performed By: #### L 100.0100, L503.6005, L500.4050 ####[facility] [address] [place], [address] ALT [Catalytic activity/Vol] 11 U/L Normal <=34 [facility] Comment on above: Performed By: #### L 100.0100, L503.6005, L500.4050 ####[facility] [address] [place], [address] AST [Catalytic activity/Vol] 30 U/L Normal <=31 [facility] Comment on above: Performed By: #### L 100.0100, L503.6005, L500.4050 ####[facility] [address] [place], [address] Bilirubin [Mass/Vol] 0.47 mg/dL Normal 0.00-1.30 [facility] Comment on above: Performed By: #### L 100.0100, L503.6005, L500.4050 ####[facility] [address] [place], [address] BUN/CRE 8.7 RATIO Low 10-20 [facility] Comment on above: Performed By: #### L 100.0100, L503.6005, L500.4050 ####[facility] [address] [place], [address] Calcium [Mass/Vol] 9.0 mg/dL Normal 7.6-11.0 [facility] Comment on above: Performed By: #### L 100.0100, L503.6005, L500.4050 ####[facility] [address] [place], [address] Chloride [Moles/Vol] 105 mmol/L Normal 98-108 [facility] Comment on above: Performed By: #### L 100.0100, L503.6005, L500.4050 ####[facility] [address] [place], [address] CO2 [Moles/Vol] 24.7 mmol/L Normal 21.0-32.0 [facility] Comment on above: Performed By: #### L 100.0100, L503.6005, L500.4050 ####[facility] [address] [place], [address] Creatinine [Mass/Vol] 0.97 mg/dL Normal 0.70-1.20 [facility] Comment on above: Performed By: #### L 100.0100, L503.6005, L500.4050 ####[facility] [address] [place], [address] ECRCL 40.24 ml/min Low 50-250 [facility] Comment on above: Performed By: #### L 100.0100, L503.6005, L500.4050 ####[facility] [address] [place], [address] GAP 10 Normal 5-15 [facility] Comment on above: Performed By: #### L 100.0100, L503.6005, L500.4050 ####[facility] [address] [place], [address] GFR/1.73 sq M.predicted among non-blacks MDRD (S/P/Bld) [Vol rate/Area] 61 mL/min/{1.73_m2} Normal >60 [facility] Comment on above: Result Comment: mL/m in/1.73m2 CKD-EPI Creatinine Equation (2020) Performed By: #### L 100.0100, L503.6005, L500.4050 ####[facility] [address] [place], [address] Globulin (S) [Mass/Vol] 3.1 g/dL Normal 2.2-4.2 [facility] Comment on above: Performed By: #### L 100.0100, L503.6005, L500.4050 ####[facility] [address] [place], [address] Glucose [Mass/Vol] 118 mg/dL High 70-99 [facility] Comment on above: Performed By: #### L 100.0100, L503.6005, L500.4050 ####[facility] [address] [place], [address] Potassium [Moles/Vol] 3.8 mmol/L Normal 3.3-5.1 [facility] Comment on above: Result Comment: Hemo lysis present, Results??could be affected.?? Performed By: #### L 100.0100, L503.6005, L500.4050 ####[facility] [address] [place], [address] Sodium [Moles/Vol] 140 mmol/L Normal 133-145 [facility] Comment on above: Performed By: #### L 100.0100, L503.6005, L500.4050 ####[facility] [address] [place], [address] T PROT 6.4 g/dL Normal 5.9-8.4 [facility] Comment on above: Performed By: #### L 100.0100, L503.6005, L500.4050 ####[facility] [address] [place], [address] Urea nitrogen [Mass/Vol] 8 mg/dL Normal 4-19 [facility] Comment on above: Performed By: #### L 100.0100, L503.6005, L500.4050 ####[facility] [address] [place], [address] Emergency Department Summary on 09-21-2024 Emergency Department Summary Normal [facility] Eosinophil percentageOrdered By: Guilherme Collins on 09-21-2024 Eosinophils/100 WBC (Bld) 0.2 % 0-5 [facility] Erythrocyte distribution wid th ratioOrdered By: Guilherme Collins on 09-21-2024 Erythrocyte distribution width (RBC) [Ratio] 13.8 % 11.6-14.6 [facility] Erythrocyte distribution wid th standard deviationOrdered By: Guilherme Collins on 09-21-2024 Erythrocyte distribution width (RBC) [Ratio] 48.4 fl High 35.1-43.9 [facility] Folate [Mass/volume] in Seru m or PlasmaOrdered By: Ricardo Fontana on 09-21-2024 Folate [Mass/Vol] 6.21 ng/mL 4.60-34.80 [facility] Folates,Serum (Folic Acid)on 09-21-2024 FOLATES,SERUM 6.21 ng/mL Normal 4.60-34.80 [facility] Comment on above: Performed By: #### L 501.9985, L501.9520, L506.0200, L501.5200 ####[facility] [address] [place], [place], [id number] Glomerular filtration rate ( GFR) estimation/1.73 sq m using serum, plasma, or whole bOrdered By: Guilherme Collins on 09-21-2024 GFR/1.73 sq M.predicted among non-blacks MDRD (S/P/Bld) [Vol rate/Area] 61 mL/min/{1.73_m2} >60 [facility] Comment on above: mL/min/1.73m2 CKD-EP I Creatinine Equation (2020) H AND P Exam - Hospitaliston 09-21-2024 H&P Exam - Hospitalist Normal [facility] Hematocrit Auto (Bld) [Volum e fraction]Ordered By: Guilherme Collins on 09-21-2024 Hematocrit (Bld) [Volume fraction] 34.9 % Low 37-47 [facility] Hemoglobin A1con 09-21-2024 HbA1c (Bld) [Mass fraction] 5.5 % Normal <=5.6 [facility] Comment on above: Result Comment: Norm al < 5.7 % Prediabetic 5.7 - 6.4 % Diabetic >or= 6.5 % Please note range changes. Performed By: #### L 501.9985, L501.9520, L506.0200, L501.5200 ####[facility] [address] [place], [place], [id number] Hemoglobin A1c percentageOrd ered By: Ricardo Fontana on 09-21-2024 HbA1c (Bld) [Mass fraction] 5.5 % <5.7 [facility] Comment on above: Normal < 5.7 % Predi abetic 5.7 - 6.4 % Diabetic >or= 6.5 % Please note range changes. Hemoglobin measurementOrdere d By: Guilherme Collins on 09-21-2024 Hemoglobin (Bld) [Mass/Vol] 11.4 g/dL Low 12.0-15.0 [facility] Immature granulocytes/100 WB C Auto (Bld)Ordered By: Guilherme Collins on 09-21-2024 Immature granulocytes/100 WBC (Bld) 0.200 % 0.0-0.9 [facility] Comment on above: IG% - Immature Granu locytes (promyelocytes, myelocytes and metamyelocytes) > 1% indicates that a LEFT SHIFT is Present. Influenza virus A and B and SARS-CoV-2 (COVID-19) and Respiratory syncytial virus RNAOrdered By: Guilherme Collins on 09-21-2024 SARS-CoV-2 (COVID-19) RNA ANTIONE+probe Ql (Unsp spec) [facility] Ketones Test strip Ql (U)Ord ered By: Guilherme Collins on 09-21-2024 Ketones Ql (U) Negative Negative [facility] Laboratory - Chemistry and C hemistry - challengeOrdered By: Guilherme Collins on 09-21-2024 AST [Catalytic activity/Vol] 30 U/L <32 [facility] Lactic Acidon 09-21-2024 Lactate [Moles/Vol] 1.1 mmol/L Normal 0.0-2.0 [facility] Comment on above: Order Comment: Y Performed By: #### L 100.0100, L503.6005, L500.4050 ####[facility] [address] [place], [place], [id number] Lactic acid measurementOrder ed By: Guilherme Collins on 09-21-2024 Lactate [Moles/Vol] 1.1 mmol/L 0.0-2.0 [facility] M100.678on 09-21-2024 M100.678 Pending SARS-CoV-2 (COVID 19) Negative INFLUENZA A Negative INFLUENZA B Negative RSV PCR Negative Normal [facility] Comment on above: Performed By: #### L 400.0001, M100.678 ####[facility] [address] [facility] [place], [address] MCV (mean corpuscular volume ) determinationOrdered By: Guilherme Collins on 09-21-2024 MCV (RBC) [Entitic vol] 95.9 fL 81-99 [facility] Magnesiumon 09-21-2024 Magnesium [Mass/Vol] 1.9 mg/dL Normal 1.5-2.2 [facility] Comment on above: Performed By: #### L 501.9985, L501.9520, L506.0200, L501.5200 ####[facility] [address] [facility] [place], [place], [address] Magnesium measurement (mass/ volume)Ordered By: Ricardo Fontana on 09-21-2024 Magnesium (Unsp spec) [Mass/Vol] 1.9 mg/dL 1.5-2.2 [facility] Mean corpuscular hemoglobin (MCH) determinationOrdered By: Guilherme Collins on 09-21-2024 MCH (RBC) [Entitic mass] 31.3 pg 27.0-32.0 [facility] Mean corpuscular hemoglobin concentration (MCHC) determinationOrdered By: Guilherme Collins on 09-21-2024 MCHC (RBC) [Mass/Vol] 32.7 g/dL 32-36 [facility] Mean platelet volume determi nationOrdered By: Guilherme Collins on 09-21-2024 Platelet mean volume (Bld) [Entitic vol] 10.0 fL 6.2-12.0 [facility] Microscopic analysis of urin e for red blood cells (RBC)Ordered By: Guilherme Collins on 09-21-2024 Microscopic analysis of urine for red blood cells (RBC) 0 SEEN /hpf 0-5 [facility] Monocyte percentageOrdered B y: Guilherme Collins on 09-21-2024 Monocytes/100 WBC (Bld) 8.7 % 0-10 [facility] Mucus LM Ql (Urine sed)Order ed By: Guilherme Collins on 09-21-2024 Mucus Ql (Urine sed) 0 SEEN /hpf [facility] Neutrophil percentageOrdered By: Guilherme Collins on 09-21-2024 Neutrophils/100 WBC (Bld) 79.3 % High 47-70 [facility] Nitrite Test strip Ql (U)Ord ered By: Guilherme Collins on 09-21-2024 Nitrite Ql (U) Negative Negative [facility] No Panel InformationOrdered By: Ricardo Fontana on 09-21-2024 Urine Buprenorphine Qualitative Negative < 200 ng/mL [facility] Urine Oxycodone Screen Negative < 100 ng/mL [facility] Negative < 200 ng/mL [facility] Nucleated red blood cell per centageOrdered By: Guilherme Collins on 09-21-2024 Nucleated RBC/100 WBC (Bld) [Ratio] 0 % 0-5 [facility] Platelet countOrdered By: Mansoor Collins on 09-21-2024 Platelets (Bld) [#/Vol] 339 10*3/uL 150-450 [facility] Potassium measurement (mass/ volume)Ordered By: Guilherme Collins on 09-21-2024 Potassium (Unsp spec) [Mass/Vol] 3.8 mmol/L 3.3-5.1 [facility] Comment on above: Hemolysis present, R esults could be affected. Protein Test strip Ql (U)Ord ered By: Guilherme Collins on 09-21-2024 Protein Ql (U) 15 mg/dl High Negative [facility] Quantitative urine opiates m easurementOrdered By: Ricardo Fontana on 09-21-2024 Opiates Ql (U) Negative < 300 ng/mL [facility] RBC Auto (Bld) [#/Vol]Ordere d By: Guilherme Collins on 09-21-2024 RBC (Bld) [#/Vol] 3.64 10*6/uL Low 4.2-5.4 [facility] Screening urine fentanyl eliezer surementOrdered By: Ricardo Fontana on 09-21-2024 fentaNYL Screen Ql (U) Negative [facility] Serum creatinine measurement (mass/volume)Ordered By: Guilherme Collins on 09-21-2024 Creatinine [Mass/Vol] 0.97 mg/dL 0.70-1.20 [facility] Serum globulin measurementOr dered By: Guilherme Collins on 09-21-2024 Globulin (S) [Mass/Vol] 3.1 g/dL 2.2-4.2 [facility] Serum glucose measurement (m ass/volume)Ordered By: Guilherme Collins on 09-21-2024 Glucose [Mass/Vol] 118 mg/dL High 70-99 [facility] Serum or plasma alanine soliz otransferase (ALT) measurementOrdered By: Guilherme Collins on 09-21-2024 ALT [Catalytic activity/Vol] 11 U/L <35 [facility] Serum or plasma albumin rosangela urement (mass/volume)Ordered By: Guilherme Collins on 09-21-2024 Albumin [Mass/Vol] 3.3 g/dL Low 3.4-4.8 [facility] Serum or plasma albumin/glob ulin mass ratioOrdered By: Guilherme Collins on 09-21-2024 Albumin/Globulin [Mass ratio] 1.1 {ratio} 0.9-2.4 [facility] Serum or plasma alkaline faustino sphatase measurementOrdered By: Guilherme Collins on 09-21-2024 ALP [Catalytic activity/Vol] 113 U/L High 35-104 [facility] Serum or plasma calcium rosangela urement (mass/volume)Ordered By: Guilherme Collins on 09-21-2024 Calcium [Mass/Vol] 9.0 mg/dL 7.6-11.0 [facility] Serum or plasma ethanol rosangela urement (mass/volume)Ordered By: Ricardo Fontana on 09-21-2024 Ethanol [Mass/Vol] mg/dL <10.1 [facility] Comment on above: This test is for med ical purposes only. The legal definition of intoxication varies according to local law. Serum or plasma urea nitroge n measurement (mass/volume)Ordered By: Guilherme Collins on 09-21-2024 Urea nitrogen [Mass/Vol] 8 mg/dL 4-19 [facility] Sodium levelOrdered By: Guilherme Collins on 09-21-2024 Sodium [Moles/Vol] 140 mmol/L 133-145 [facility] Squamous epithelial cells de tection in urine sediment by light microscopyOrdered By: Guilherme Collins on 09-21-2024 Epithelial cells.squamous LM Ql (Urine sed) 0 SEEN /hpf 5-10 [facility] TSH DL <= 0.005 mIU/L QnOrde red By: Ricardo Fontana on 09-21-2024 TSH Qn 0.358 uIU/mL 0.300-4.20 0 [facility] Thyroid Stim Hormone (TSH)on 09-21-2024 TSH 0.358 uIU/mL Normal 0.300-4.20 0 [facility] Comment on above: Performed By: #### L 501.9985, L501.9520, L506.0200, L501.5200 ####[facility] [address] [place], [address] Total proteinOrdered By: Aayush Collins on 09-21-2024 Protein [Mass/Vol] 6.4 g/dL 5.9-8.4 [facility] Urinalysis, Completeon 09-21 BACTERIA 2+ /hpf Normal None Seen [facility] Comment on above: Order Comment: CLEAN CATCH Performed By: #### L 400.0001, M100.678 ####[facility] [address] [place], [address] WBC 0-5 SEEN Normal 0-5 [facility] Comment on above: Order Comment: CLEAN CATCH Performed By: #### L 400.0001, M100.678 ####[facility] [address] [place], [address] YEAST 1+ /hpf Normal None Seen [facility] Comment on above: Order Comment: CLEAN CATCH Performed By: #### L 400.0001, M100.678 ####[facility] [address] [place], [address] EPI,SQUAMOUS 0 SEEN Normal 5-10 [facility] Comment on above: Order Comment: CLEAN CATCH Performed By: #### L 400.0001, M100.678 ####[facility] [address] [place], [address] Mucus Ql (Urine sed) 0 SEEN Normal [facility] Comment on above: Order Comment: CLEAN CATCH Performed By: #### L 400.0001, M100.678 ####[facility] [address] [place], [address] RBC 0 SEEN Normal 0-5 [facility] Comment on above: Order Comment: CLEAN CATCH Performed By: #### L 400.0001, M100.678 ####[facility] [address] [place], [address] Urine Drug Screen (VISTA)on 09-21-2024 AMPHETAMINES Negative Normal <1000 ng/mL [facility] Comment on above: Performed By: #### L 501.9100, L505.5000 ####[facility] [address] [place], [address] BARBITIURATES Negative Normal < 200 ng/mL [facility] Comment on above: Performed By: #### L 501.9100, L505.5000 ####[facility] [address] [place], [address] BENZODIAZIPINE Positive Normal < 200 ng/mL [facility] Comment on above: Result Comment: If c onfirmation testing is needed, a separate order will berequired to send out testing to the reference laboratory. Performed By: #### L 501.9100, L505.5000 ####[facility] [address] [place], [address] BUP Ur Drug Scr Negative Normal < 200 ng/mL [facility] Comment on above: Performed By: #### L 501.9100, L505.5000 ####[facility] [address] [place], [address] COCAINE Negative Normal < 300 ng/mL [facility] Comment on above: Performed By: #### L 501.9100, L505.5000 ####[facility] [address] [place], [address] Fentanyl Negative Normal [facility] Comment on above: Performed By: #### L 501.9100, L505.5000 ####[facility] [address] [place], [address] METHADONE Negative Normal < 300 ng/mL [facility] Comment on above: Performed By: #### L 501.9100, L505.5000 ####[facility] [address] [place], [address] OPIATES Negative Normal < 300 ng/mL [facility] Comment on above: Performed By: #### L 501.9100, L505.5000 ####[facility] [address] [place], [address] OXYCODONE Negative Normal < 100 ng/mL [facility] Comment on above: Performed By: #### L 501.9100, L505.5000 ####[facility] [address] [place], [address] PCP Negative Normal < 25 ng/mL [facility] Comment on above: Performed By: #### L 501.9100, L505.5000 ####[facility] [address] [place], [address] THC Negative Normal < 50 ng/mL [facility] Comment on above: Performed By: #### L 501.9100, L505.5000 ####[facility] [address] [place], [address] Urine benzodiazepine levelOr dered By: Ricardo Fontana on 09-21-2024 Benzodiazepines Ql (U) Positive < 200 ng/mL [facility] Comment on above: If confirmation test ing is needed, a separate order will be required to send out testing to the reference laboratory. Urine clarityOrdered By: Aayush Collins on 09-21-2024 Clarity (U) Clear Clear [facility] Urine cocaine levelOrdered B y: Ricardo Fontana on 09-21-2024 Cocaine Ql (U) Negative < 300 ng/mL [facility] Urine color determinationOrd ered By: Guilherme Collins on 09-21-2024 Color (U) Yellow Yellow [facility] Urine uvinl-0-fnlrjyyzivtgif abinol (THC) measurementOrdered By: Ricardo Fontana on 09-21-2024 Cannabinoids Screen Ql (U) Negative < 50 ng/mL [facility] Urine glucose detectionOrder ed By: Guilherme Collins on 09-21-2024 Glucose Ql (U) Normal mg/dl Normal [facility] Urine leukocyte esterase det ection by dipstickOrdered By: Guilherme Collins on 09-21-2024 Leukocyte esterase Test strip Ql (U) 100 /ul High Negative [facility] Urine pHOrdered By: Guilherme ingram on 09-21-2024 pH (U) 6.0 [pH] 5.0 - 8.0 [facility] Urine phencyclidine (PCP) de tectionOrdered By: Ricardo Fontana on 09-21-2024 Phencyclidine Ql (U) Negative < 25 ng/mL [facility] Urine sediment bacteria coun t by microscopy (number/high power field)Ordered By: Guilherme Collins on 09-21-2024 Bacteria LM.HPF (Urine sed) [#/Area] 2 /[HPF] None Seen [facility] Urine sediment yeast count b y microscopy (number/high powered field)Ordered By: Guilherme Collins on 09-21-2024 Yeast LM.HPF (Urine sed) [#/Area] 1 /[HPF] None Seen [facility] Urine specific gravity measu rementOrdered By: Guilherme Collins on 09-21-2024 Specific gravity (U) [Rel density] 1.015 1.002-1.03 0 [facility] Urine urobilinogen measureme ntOrdered By: Guilherme Collins on 09-21-2024 Urobilinogen Ql (U) Normal mg/dl Normal [facility] Vitamin B12on 09-21-2024 Cobalamin (Vitamin B12) [Mass/Vol] 757 pg/mL Normal 180-914 [facility] Comment on above: Performed By: #### L 503.0106 ####[facility] [address] [place], [address] Vitamin B12 ser/plasOrdered By: Ricardo Fontana on 09-21-2024 Cobalamin (Vitamin B12) [Mass/Vol] 757 pg/mL 180-914 [facility] White blood cell (WBC) count Ordered By: Guilherme Collins on 09-21-2024 WBC (Bld) [#/Vol] 8.0 10*3/uL 4.4-11.0 [facility] White blood cell countOrdere d By: Guilherme Collins on 09-21-2024 White blood cell count 0-5 SEEN /hpf 0-5 [facility] Culture, Blood (WB)on 2024 CUB Blood cultures x2, f rom two different sites No growth in 5 days. Normal [facility] Comment on above: Performed By: #### M 200.1000, L300.4310, L503.6005, L300.3900, L100.0100, L500.4050 ####[facility] [address] [place], [address] Basic Metabolic Profile (BMP )on 09-01-2024 BUN Normal 4-19 [facility] Comment on above: Result Comment: Canc elled via OM: Order cancelled - Patient discharged Performed By: #### L 100.0500, L500.2500 ####[facility] [address] [place], [address] BUN/CRE Normal 10-20 [facility] Comment on above: Result Comment: Canc elled via OM: Order cancelled - Patient discharged Performed By: #### L 100.0500, L500.2500 ####[facility] [address] [place], [address] Calcium Normal 7.6-11.0 [facility] Comment on above: Result Comment: Canc elled via OM: Order cancelled - Patient discharged Performed By: #### L 100.0500, L500.2500 ####[facility] [address] [place], [address] CL Normal 98-108 [facility] Comment on above: Result Comment: Canc elled via OM: Order cancelled - Patient discharged Performed By: #### L 100.0500, L500.2500 ####[facility] [address] [place], [address] CO2 Normal 21.0-32.0 [facility] Comment on above: Result Comment: Canc elled via OM: Order cancelled - Patient discharged Performed By: #### L 100.0500, L500.2500 ####[facility] [address] [place], [address] CREAT,SERUM Normal 0.70-1.20 [facility] Comment on above: Result Comment: Canc elled via OM: Order cancelled - Patient discharged Performed By: #### L 100.0500, L500.2500 ####[facility] [address] [place], [address] eGFR Normal >60 [facility] Comment on above: Result Comment: Canc elled via OM: Order cancelled - Patient discharged Performed By: #### L 100.0500, L500.2500 ####[facility] [address] [place], [address] GAP Normal 5-15 [facility] Comment on above: Result Comment: Canc elled via OM: Order cancelled - Patient discharged Performed By: #### L 100.0500, L500.2500 ####[facility] [address] [place], [address] GLU Normal 70-99 [facility] Comment on above: Result Comment: Canc elled via OM: Order cancelled - Patient discharged Performed By: #### L 100.0500, L500.2500 ####[facility] [address] [place], [address] Potassium Normal 3.3-5.1 [facility] Comment on above: Result Comment: Canc elled via OM: Order cancelled - Patient discharged Performed By: #### L 100.0500, L500.2500 ####[facility] [address] [place], [address] Basic Metabolic Profile (BMP) Normal 133-145 [facility] Comment on above: Result Comment: Canc elled via OM: Order cancelled - Patient discharged Performed By: #### L 100.0500, L500.2500 ####[facility] [address] [place], [address] CBC-Complete Blood Cnt No Di ffon 09-01-2024 HCT Normal 37-47 [facility] Comment on above: Result Comment: Canc elled via OM: Order cancelled - Patient discharged Performed By: #### L 100.0500, L500.2500 ####[facility] [address] [place], [address] HGB Normal 12.0-15.0 [facility] Comment on above: Result Comment: Canc elled via OM: Order cancelled - Patient discharged Performed By: #### L 100.0500, L500.2500 ####[facility] [address] [place], [address] MCH Normal 27.0-32.0 [facility] Comment on above: Result Comment: Canc elled via OM: Order cancelled - Patient discharged Performed By: #### L 100.0500, L500.2500 ####[facility] [address] [place], [address] MCHC Normal 32-36 [facility] Comment on above: Result Comment: Canc elled via OM: Order cancelled - Patient discharged Performed By: #### L 100.0500, L500.2500 ####[facility] [address] [place], [address] MCV Normal 81-99 [facility] Comment on above: Result Comment: Canc elled via OM: Order cancelled - Patient discharged Performed By: #### L 100.0500, L500.2500 ####[facility] [address] [place], [address] PLT Normal 150-450 [facility] Comment on above: Result Comment: Canc elled via OM: Order cancelled - Patient discharged Performed By: #### L 100.0500, L500.2500 ####[facility] [address] [place], [address] RBC Normal 4.2-5.4 [facility] Comment on above: Result Comment: Canc elled via OM: Order cancelled - Patient discharged Performed By: #### L 100.0500, L500.2500 ####[facility] [address] [place], [address] RDW CV Normal 11.6-14.6 [facility] Comment on above: Result Comment: Canc elled via OM: Order cancelled - Patient discharged Performed By: #### L 100.0500, L500.2500 ####[facility] [address] [place], [address] RDW SD Normal 35.1-43.9 [facility] Comment on above: Result Comment: Canc elled via OM: Order cancelled - Patient discharged Performed By: #### L 100.0500, L500.2500 ####[facility] [address] [place], [address] WBC Normal 4.4-11.0 [facility] Comment on above: Result Comment: Canc elled via OM: Order cancelled - Patient discharged Performed By: #### L 100.0500, L500.2500 ####[facility] [address] [place], [address] Basic Metabolic Profile (BMP )on 08-31-2024 BUN Normal 4-19 [facility] Comment on above: Result Comment: Canc elled via OM: Order cancelled - Patient discharged Performed By: #### L 100.0500, L500.2500 ####[facility] [address] [place], [address] BUN/CRE Normal 10-20 [facility] Comment on above: Result Comment: Canc elled via OM: Order cancelled - Patient discharged Performed By: #### L 100.0500, L500.2500 ####[facility] [address] [place], [address] Calcium Normal 7.6-11.0 [facility] Comment on above: Result Comment: Canc elled via OM: Order cancelled - Patient discharged Performed By: #### L 100.0500, L500.2500 ####[facility] [address] [place], [address] CL Normal 98-108 [facility] Comment on above: Result Comment: Canc elled via OM: Order cancelled - Patient discharged Performed By: #### L 100.0500, L500.2500 ####[facility] [address] [place], [address] CO2 Normal 21.0-32.0 [facility] Comment on above: Result Comment: Canc elled via OM: Order cancelled - Patient discharged Performed By: #### L 100.0500, L500.2500 ####[facility] [address] [place], [address] CREAT,SERUM Normal 0.70-1.20 [facility] Comment on above: Result Comment: Canc elled via OM: Order cancelled - Patient discharged Performed By: #### L 100.0500, L500.2500 ####[facility] [address] [place], [address] eGFR Normal >60 [facility] Comment on above: Result Comment: Canc elled via OM: Order cancelled - Patient discharged Performed By: #### L 100.0500, L500.2500 ####[facility] [address] [place], [address] GAP Normal 5-15 [facility] Comment on above: Result Comment: Canc elled via OM: Order cancelled - Patient discharged Performed By: #### L 100.0500, L500.2500 ####[facility] [address] [place], [address] GLU Normal 70-99 [facility] Comment on above: Result Comment: Canc elled via OM: Order cancelled - Patient discharged Performed By: #### L 100.0500, L500.2500 ####[facility] [address] [place], [address] Potassium Normal 3.3-5.1 [facility] Comment on above: Result Comment: Canc elled via OM: Order cancelled - Patient discharged Performed By: #### L 100.0500, L500.2500 ####[facility] [address] [place], [address] Basic Metabolic Profile (BMP) Normal 133-145 [facility] Comment on above: Result Comment: Canc elled via OM: Order cancelled - Patient discharged Performed By: #### L 100.0500, L500.2500 ####[facility] [address] [place], [address] CBC-Complete Blood Cnt No Di ffon 08-31-2024 HCT Normal 37-47 [facility] Comment on above: Result Comment: Canc elled via OM: Order cancelled - Patient discharged Performed By: #### L 100.0500, L500.2500 ####[facility] [address] [place], [address] HGB Normal 12.0-15.0 [facility] Comment on above: Result Comment: Canc elled via OM: Order cancelled - Patient discharged Performed By: #### L 100.0500, L500.2500 ####[facility] [address] [place], [address] MCH Normal 27.0-32.0 [facility] Comment on above: Result Comment: Canc elled via OM: Order cancelled - Patient discharged Performed By: #### L 100.0500, L500.2500 ####[facility] [address] [place], [address] MCHC Normal 32-36 [facility] Comment on above: Result Comment: Canc elled via OM: Order cancelled - Patient discharged Performed By: #### L 100.0500, L500.2500 ####[facility] [address] [place], [address] MCV Normal 81-99 [facility] Comment on above: Result Comment: Canc elled via OM: Order cancelled - Patient discharged Performed By: #### L 100.0500, L500.2500 ####[facility] [address] [place], [address] PLT Normal 150-450 [facility] Comment on above: Result Comment: Canc elled via OM: Order cancelled - Patient discharged Performed By: #### L 100.0500, L500.2500 ####[facility] [address] [place], [address] RBC Normal 4.2-5.4 [facility] Comment on above: Result Comment: Canc elled via OM: Order cancelled - Patient discharged Performed By: #### L 100.0500, L500.2500 ####[facility] [address] [place], [address] RDW CV Normal 11.6-14.6 [facility] Comment on above: Result Comment: Canc elled via OM: Order cancelled - Patient discharged Performed By: #### L 100.0500, L500.2500 ####[facility] [address] [place], [address] RDW SD Normal 35.1-43.9 [facility] Comment on above: Result Comment: Canc elled via OM: Order cancelled - Patient discharged Performed By: #### L 100.0500, L500.2500 ####[facility] [address] [place], [address] WBC Normal 4.4-11.0 [facility] Comment on above: Result Comment: Canc elled via OM: Order cancelled - Patient discharged Performed By: #### L 100.0500, L500.2500 ####[facility] [address] [place], [address] Basic Metabolic Profile (BMP )on 08-30-2024 BUN Normal 4-19 [facility] Comment on above: Result Comment: Canc elled via OM: Order cancelled - Patient discharged Performed By: #### L 500.2500, L100.0500 ####[facility] [address] [place], [address] BUN/CRE Normal 10-20 [facility] Comment on above: Result Comment: Canc elled via OM: Order cancelled - Patient discharged Performed By: #### L 500.2500, L100.0500 ####[facility] [address] [place], [address] Calcium Normal 7.6-11.0 [facility] Comment on above: Result Comment: Canc elled via OM: Order cancelled - Patient discharged Performed By: #### L 500.2500, L100.0500 ####[facility] [address] [place], [address] CL Normal 98-108 [facility] Comment on above: Result Comment: Canc elled via OM: Order cancelled - Patient discharged Performed By: #### L 500.2500, L100.0500 ####[facility] [address] [place], [address] CO2 Normal 21.0-32.0 [facility] Comment on above: Result Comment: Canc elled via OM: Order cancelled - Patient discharged Performed By: #### L 500.2500, L100.0500 ####[facility] [address] [place], [address] CREAT,SERUM Normal 0.70-1.20 [facility] Comment on above: Result Comment: Canc elled via OM: Order cancelled - Patient discharged Performed By: #### L 500.2500, L100.0500 ####[facility] [address] [place], [address] eGFR Normal >60 [facility] Comment on above: Result Comment: Canc elled via OM: Order cancelled - Patient discharged Performed By: #### L 500.2500, L100.0500 ####[facility] [address] [place], [address] GAP Normal 5-15 [facility] Comment on above: Result Comment: Canc elled via OM: Order cancelled - Patient discharged Performed By: #### L 500.2500, L100.0500 ####[facility] [address] [place], [address] GLU Normal 70-99 [facility] Comment on above: Result Comment: Canc elled via OM: Order cancelled - Patient discharged Performed By: #### L 500.2500, L100.0500 ####[facility] [address] [place], [address] Potassium Normal 3.3-5.1 [facility] Comment on above: Result Comment: Canc elled via OM: Order cancelled - Patient discharged Performed By: #### L 500.2500, L100.0500 ####[facility] [address] [place], [address] Basic Metabolic Profile (BMP) Normal 133-145 [facility] Comment on above: Result Comment: Canc elled via OM: Order cancelled - Patient discharged Performed By: #### L 500.2500, L100.0500 ####[facility] [address] [place], [address] CBC-Complete Blood Cnt No Di ffon 08-30-2024 HCT Normal 37-47 [facility] Comment on above: Result Comment: Canc elled via OM: Order cancelled - Patient discharged Performed By: #### L 500.2500, L100.0500 ####[facility] [address] [place], [address] HGB Normal 12.0-15.0 [facility] Comment on above: Result Comment: Canc elled via OM: Order cancelled - Patient discharged Performed By: #### L 500.2500, L100.0500 ####[facility] [address] [place], [address] MCH Normal 27.0-32.0 [facility] Comment on above: Result Comment: Canc elled via OM: Order cancelled - Patient discharged Performed By: #### L 500.2500, L100.0500 ####[facility] [address] [place], [address] MCHC Normal 32-36 [facility] Comment on above: Result Comment: Canc elled via OM: Order cancelled - Patient discharged Performed By: #### L 500.2500, L100.0500 ####[facility] [address] [place], [address] MCV Normal 81-99 [facility] Comment on above: Result Comment: Canc elled via OM: Order cancelled - Patient discharged Performed By: #### L 500.2500, L100.0500 ####[facility] [address] [place], [address] PLT Normal 150-450 [facility] Comment on above: Result Comment: Canc elled via OM: Order cancelled - Patient discharged Performed By: #### L 500.2500, L100.0500 ####[facility] [address] [place], [address] RBC Normal 4.2-5.4 [facility] Comment on above: Result Comment: Canc elled via OM: Order cancelled - Patient discharged Performed By: #### L 500.2500, L100.0500 ####[facility] [address] [place], [address] RDW CV Normal 11.6-14.6 [facility] Comment on above: Result Comment: Canc elled via OM: Order cancelled - Patient discharged Performed By: #### L 500.2500, L100.0500 ####[facility] [address] [place], [address] RDW SD Normal 35.1-43.9 [facility] Comment on above: Result Comment: Canc elled via OM: Order cancelled - Patient discharged Performed By: #### L 500.2500, L100.0500 ####[facility] [address] [place], [address] WBC Normal 4.4-11.0 [facility] Comment on above: Result Comment: Canc elled via OM: Order cancelled - Patient discharged Performed By: #### L 500.2500, L100.0500 ####[facility] [address] [place], [address] Urine Cultureon 08-30-2024 URC Yeast, not Mary Alice a lbicans Ethel Count 11,000-25,000 Normal [facility] Comment on above: Performed By: #### M 100.2200, L400.0001 ####[facility] [address] [place], [address] Anion gap in Serum or Plasma Ordered By: Christofer Espino on 08-29-2024 Anion gap [Moles/Vol] 11 mmol/L 5-15 [facility] BUN/creatinine ratioOrdered By: Christofer Espino on 08-29-2024 Urea nitrogen/Creatinine [Mass ratio] 11.8 mg/mg 10-20 [facility] Basic Metabolic Profile (BMP )on 08-29-2024 BUN/CRE 11.8 RATIO Normal - [facility] Comment on above: Performed By: #### L 500.2500, L100.0500 ####[facility] [address] [place], [address] Calcium [Mass/Vol] 8.3 mg/dL Normal 7.6-11.0 [facility] Comment on above: Performed By: #### L 500.2500, L100.0500 ####[facility] [address] [place], [address] Chloride [Moles/Vol] 109 mmol/L High 98-108 [facility] Comment on above: Performed By: #### L 500.2500, L100.0500 ####[facility] [address] [place], [address] CO2 [Moles/Vol] 20.9 mmol/L Low 21.0-32.0 [facility] Comment on above: Performed By: #### L 500.2500, L100.0500 ####[facility] [address] [place], [address] Creatinine [Mass/Vol] 0.73 mg/dL Normal 0.70-1.20 [facility] Comment on above: Performed By: #### L 500.2500, L100.0500 ####[facility] [address] [place], [address] ECRCL 47.71 ml/min Low 50-250 [facility] Comment on above: Performed By: #### L 500.2500, L100.0500 ####[facility] [address] [place], [address] GAP 11 Normal 5-15 [facility] Comment on above: Performed By: #### L 500.2500, L100.0500 ####[facility] [address] [place], [address] GFR/1.73 sq M.predicted among non-blacks MDRD (S/P/Bld) [Vol rate/Area] 86 mL/min/{1.73_m2} Normal >60 [facility] Comment on above: Result Comment: mL/m in/1.73m2 CKD-EPI Creatinine Equation (2020) Performed By: #### L 500.2500, L100.0500 ####[facility] [address] [place], [address] Glucose [Mass/Vol] 75 mg/dL Normal 70-99 [facility] Comment on above: Performed By: #### L 500.2500, L100.0500 ####[facility] [address] [place], [address] Potassium [Moles/Vol] 3.6 mmol/L Normal 3.3-5.1 [facility] Comment on above: Performed By: #### L 500.2500, L100.0500 ####[facility] [address] [place], [address] Sodium [Moles/Vol] 141 mmol/L Normal 133-145 [facility] Comment on above: Performed By: #### L 500.2500, L100.0500 ####[facility] [address] [place], [address] Urea nitrogen [Mass/Vol] 9 mg/dL Normal 4-19 [facility] Comment on above: Performed By: #### L 500.2500, L100.0500 ####[facility] [address] [place], [address] CBC-Complete Blood Cnt No Di ffon 08-29-2024 Erythrocyte distribution width (RBC) [Ratio] 13.2 % Normal 11.6-14.6 [facility] Comment on above: Performed By: #### L 500.2500, L100.0500 ####[facility] [address] [place], [address] Hematocrit (Bld) [Volume fraction] 29.9 % Low 37-47 [facility] Comment on above: Performed By: #### L 500.2500, L100.0500 ####[facility] [address] [place], [address] Hemoglobin (Bld) [Mass/Vol] 10.0 g/dL Low 12.0-15.0 [facility] Comment on above: Performed By: #### L 500.2500, L100.0500 ####[facility] [address] [place], [address] MCH (RBC) [Entitic mass] 31.6 pg Normal 27.0-32.0 [facility] Comment on above: Performed By: #### L 500.2500, L100.0500 ####[facility] [address] [place], [address] MCHC (RBC) [Mass/Vol] 33.4 g/dL Normal 32-36 [facility] Comment on above: Performed By: #### L 500.2500, L100.0500 ####[facility] [address] [place], [address] MCV (RBC) [Entitic vol] 94.6 fL Normal 81-99 [facility] Comment on above: Performed By: #### L 500.2500, L100.0500 ####[facility] [address] [place], [address] Platelet mean volume (Bld) [Entitic vol] 9.7 fL Normal 6.2-12.0 [facility] Comment on above: Performed By: #### L 500.2500, L100.0500 ####[facility] [address] [place], [address] Platelets (Bld) [#/Vol] 284 10*3/uL Normal 150-450 [facility] Comment on above: Performed By: #### L 500.2500, L100.0500 ####[facility] [address] [place], [address] RBC (Bld) [#/Vol] 3.16 10*6/uL Low 4.2-5.4 [facility] Comment on above: Performed By: #### L 500.2500, L100.0500 ####[facility] [address] [place], [address] RDW SD 45.9 fl High 35.1-43.9 [facility] Comment on above: Performed By: #### L 500.2500, L100.0500 ####[facility] [address] [place], [address] WBC (Bld) [#/Vol] 4.4 10*3/uL Normal 4.4-11.0 [facility] Comment on above: Performed By: #### L 500.2500, L100.0500 ####[facility] [address] [place], [address] Carbon dioxide, total [Moles /volume] in Central venous bloodOrdered By: Christofer Espino on 08-29-2024 CO2 [Moles/Vol] 20.9 mmol/L Low 21.0-32.0 [facility] Chloride assayOrdered By: Jeffrey Espino on 08-29-2024 Chloride [Moles/Vol] 109 mmol/L High 98-108 [facility] Discharge Instructionon 08-17 Discharge Instruction Normal [facility] Erythrocyte distribution wid th ratioOrdered By: Christofer Espino on 08-29-2024 Erythrocyte distribution width (RBC) [Ratio] 13.2 % 11.6-14.6 [facility] Erythrocyte distribution wid th standard deviationOrdered By: Christofer Espino on 08-29-2024 Erythrocyte distribution width (RBC) [Ratio] 45.9 fl High 35.1-43.9 [facility] Glomerular filtration rate ( GFR) estimation/1.73 sq m using serum, plasma, or whole bOrdered By: Christofer Espino on 08-29-2024 GFR/1.73 sq M.predicted among non-blacks MDRD (S/P/Bld) [Vol rate/Area] 86 mL/min/{1.73_m2} >60 [facility] Comment on above: mL/min/1.73m2 CKD-EP I Creatinine Equation (2020) Hematocrit Auto (Bld) [Volum e fraction]Ordered By: Christofer Espino on 08-29-2024 Hematocrit (Bld) [Volume fraction] 29.9 % Low 37-47 [facility] Hemoglobin measurementOrdere d By: Christofer Espino on 08-29-2024 Hemoglobin (Bld) [Mass/Vol] 10.0 g/dL Low 12.0-15.0 [facility] MCV (mean corpuscular volume ) determinationOrdered By: Christofer Espino on 08-29-2024 MCV (RBC) [Entitic vol] 94.6 fL 81-99 [facility] Mean corpuscular hemoglobin (MCH) determinationOrdered By: Christofer Espino on 08-29-2024 MCH (RBC) [Entitic mass] 31.6 pg 27.0-32.0 [facility] Mean corpuscular hemoglobin concentration (MCHC) determinationOrdered By: Christofer Espino on 08-29-2024 MCHC (RBC) [Mass/Vol] 33.4 g/dL 32-36 [facility] Mean platelet volume determi nationOrdered By: Christofer Espino on 08-29-2024 Platelet mean volume (Bld) [Entitic vol] 9.7 fL 6.2-12.0 [facility] Platelet countOrdered By: Jeffrey Espino on 08-29-2024 Platelets (Bld) [#/Vol] 284 10*3/uL 150-450 [facility] Potassium measurement (mass/ volume)Ordered By: Christofer Espino on 08-29-2024 Potassium (Unsp spec) [Mass/Vol] 3.6 mmol/L 3.3-5.1 [facility] RBC Auto (Bld) [#/Vol]Ordere d By: Christofer Espino on 08-29-2024 RBC (Bld) [#/Vol] 3.16 10*6/uL Low 4.2-5.4 [facility] Serum creatinine measurement (mass/volume)Ordered By: Christofer Espino on 08-29-2024 Creatinine [Mass/Vol] 0.73 mg/dL 0.70-1.20 [facility] Serum glucose measurement (m ass/volume)Ordered By: Christofer Espino on 08-29-2024 Glucose [Mass/Vol] 75 mg/dL 70-99 [facility] Serum or plasma calcium rosangela urement (mass/volume)Ordered By: Christofer Espino on 08-29-2024 Calcium [Mass/Vol] 8.3 mg/dL 7.6-11.0 [facility] Serum or plasma urea nitroge n measurement (mass/volume)Ordered By: Christofer Espino on 08-29-2024 Urea nitrogen [Mass/Vol] 9 mg/dL 4-19 [facility] Sodium levelOrdered By: Ezekiel Espino on 08-29-2024 Sodium [Moles/Vol] 141 mmol/L 133-145 [facility] White blood cell (WBC) count Ordered By: Christofer Espino on 08-29-2024 WBC (Bld) [#/Vol] 4.4 10*3/uL 4.4-11.0 [facility] Basic Metabolic Profile (BMP )on 08-28-2024 BUN/CRE 11.6 RATIO Normal 10-20 [facility] Comment on above: Performed By: #### L 500.2500, L100.0500 ####[facility] [address] [place], [place], [phone] Calcium [Mass/Vol] 7.7 mg/dL Normal 7.6-11.0 [facility] Comment on above: Performed By: #### L 500.2500, L100.0500 ####[facility] [address] [place], [address] Chloride [Moles/Vol] 109 mmol/L High 98-108 [facility] Comment on above: Performed By: #### L 500.2500, L100.0500 ####[facility] [address] [place], [address] CO2 [Moles/Vol] 20.4 mmol/L Low 21.0-32.0 [facility] Comment on above: Performed By: #### L 500.2500, L100.0500 ####[facility] [address] [place], [address] Creatinine [Mass/Vol] 0.78 mg/dL Normal 0.70-1.20 [facility] Comment on above: Performed By: #### L 500.2500, L100.0500 ####[facility] [address] [place], [address] ECRCL 47.71 ml/min Low 50-250 [facility] Comment on above: Performed By: #### L 500.2500, L100.0500 ####[facility] [address] [place], [address] GAP 11 Normal 5-15 [facility] Comment on above: Performed By: #### L 500.2500, L100.0500 ####[facility] [address] [place], [address] GFR/1.73 sq M.predicted among non-blacks MDRD (S/P/Bld) [Vol rate/Area] 79 mL/min/{1.73_m2} Normal >60 [facility] Comment on above: Result Comment: mL/m in/1.73m2 CKD-EPI Creatinine Equation (2020) Performed By: #### L 500.2500, L100.0500 ####[facility] [address] [place], [address] Glucose [Mass/Vol] 70 mg/dL Normal 70-99 [facility] Comment on above: Performed By: #### L 500.2500, L100.0500 ####[facility] [address] [place], [address] Potassium [Moles/Vol] 3.3 mmol/L Normal 3.3-5.1 [facility] Comment on above: Performed By: #### L 500.2500, L100.0500 ####[facility] [address] [place], [address] Sodium [Moles/Vol] 140 mmol/L Normal 133-145 [facility] Comment on above: Performed By: #### L 500.2500, L100.0500 ####[facility] [address] [place], [address] Urea nitrogen [Mass/Vol] 9 mg/dL Normal 4-19 [facility] Comment on above: Performed By: #### L 500.2500, L100.0500 ####[facility] [address] [place], [address] CBC-Complete Blood Cnt No Di ffon 08-28-2024 Erythrocyte distribution width (RBC) [Ratio] 13.4 % Normal 11.6-14.6 [facility] Comment on above: Performed By: #### L 500.2500, L100.0500 ####[facility] [address] [place], [address] Hematocrit (Bld) [Volume fraction] 29.4 % Low 37-47 [facility] Comment on above: Performed By: #### L 500.2500, L100.0500 ####[facility] [address] [place], [address] Hemoglobin (Bld) [Mass/Vol] 9.7 g/dL Low 12.0-15.0 [facility] Comment on above: Performed By: #### L 500.2500, L100.0500 ####[facility] [address] [place], [address] MCH (RBC) [Entitic mass] 31.7 pg Normal 27.0-32.0 [facility] Comment on above: Performed By: #### L 500.2500, L100.0500 ####[facility] [address] [place], [address] MCHC (RBC) [Mass/Vol] 33.0 g/dL Normal 32-36 [facility] Comment on above: Performed By: #### L 500.2500, L100.0500 ####[facility] [address] [place], [address] MCV (RBC) [Entitic vol] 96.1 fL Normal 81-99 [facility] Comment on above: Performed By: #### L 500.2500, L100.0500 ####[facility] [address] [place], [address] Platelet mean volume (Bld) [Entitic vol] 9.8 fL Normal 6.2-12.0 [facility] Comment on above: Performed By: #### L 500.2500, L100.0500 ####[facility] [address] [place], [address] Platelets (Bld) [#/Vol] 278 10*3/uL Normal 150-450 [facility] Comment on above: Performed By: #### L 500.2500, L100.0500 ####[facility] [address] [place], [address] RBC (Bld) [#/Vol] 3.06 10*6/uL Low 4.2-5.4 [facility] Comment on above: Performed By: #### L 500.2500, L100.0500 ####[facility] [address] [place], [address] RDW SD 47.2 fl High 35.1-43.9 [facility] Comment on above: Performed By: #### L 500.2500, L100.0500 ####[facility] [address] [place], [address] WBC (Bld) [#/Vol] 4.8 10*3/uL Normal 4.4-11.0 [facility] Comment on above: Performed By: #### L 500.0764, L100.9904 ####[facility] [address] [place], [address] Electrocardiogram reportOrde red By: Mil Snyder on 08-28-2024 EKG study [facility] [address] [facility] [address] 12 Lead EKG 08/27/24 1633 MR#: [id number] Acct: [id number] Name: CAROL DAVID Rep #:[id number] : 1950 74 From: Mil banerjee MD Attending Dr: Dr. Christofer Espino DO Status: ADM IN Ordering Dr: Huber Ballard MD Date: 08/27 Location: [facility] Sex: F C Admitted: 08/27/24 Test Reason : Blood Pressure : */* mmHG Vent. Rate : 111 BPM Atrial Rate : 111 BPM P-R Int : 144 ms QRS Dur : 68 ms QT Int : 318 ms P-R-T Axes : 67 -29 63 degrees QTcB Int : 432 ms Sinus tachycardia Low voltage QRS Borderline ECG Confirmed by Mil Snyder ([id number]), editor farm journal GEGE COSTELLO ([id number]) on 0:15:17 AM Referred By: Confirmed By: iMl Snyder 08/28/24 1015 Date _ Mil Snyder MD CC: Dr. Christofer Espino DO; Dr. Harish Luis MD; Dr. Huber Ballard MD ~ Signed [facility] Other Phone: Legionella Antigen Urineon 0 08-28-2024 LEGU Normal [facility] Comment on above: Performed By: #### M 300.6150, M300.4500 ####[facility] [address] [place], [address] Magnesiumon 08-28-2024 Magnesium [Mass/Vol] 1.9 mg/dL Normal 1.5-2.2 [facility] Comment on above: Performed By: #### L 501.2300, L501.5200 ####[facility] [address] [place], [address] Magnesium measurement (mass/ volume)Ordered By: Christofer Espino on 08-28-2024 Magnesium (Unsp spec) [Mass/Vol] 1.9 mg/dL 1.5-2.2 [facility] Phosphoruson 08-28-2024 Phosphate [Mass/Vol] 2.7 mg/dL Normal 2.7-4.5 [facility] Comment on above: Performed By: #### L 501.2300, L501.5200 ####[facility] [address] [place], [address] Strep pneumoniae Antig(UR,CS F)on 08-28-2024 STPAG Normal [facility] Comment on above: Performed By: #### M 300.4600, M300.4500 ####[facility] [address] [place], [address] 12 Lead EKGon 08-27-2024 12 Lead EKG Normal [facility] Absolute lymphocyte countOrd ered By: Huber Ballard on 08-27-2024 Lymphocytes Auto (Unsp spec) [#/Vol] 0.45 10*3/uL Low 0.83-4.51 [facility] Absolute neutrophil countOrd ered By: Huber Ballard on 08-27-2024 Neutrophils (Bld) [#/Vol] 5.6 10*3/uL 2.0-7.7 [facility] Activated partial thrombopla stin time (aPTT) in platelet poor plasma by coagulation aOrdered By: Huber Ballard on 08-27-2024 aPTT Coag (PPP) [Time] 36.4 s High 24.1-36.2 [facility] Anion gap in Serum or Plasma Ordered By: Huber Ballard on 08-27-2024 Anion gap [Moles/Vol] 11 mmol/L 5-15 [facility] Automated blood erythrocyte countOrdered By: Huber Goldo on 08-27-2024 RBC (Bld) [#/Vol] 3.82 10*6/uL Low 4.2-5.4 [facility] Comment on above: Performed By: #### M 200.1000, L300.4310, L503.6005, L300.3900, L100.0100, L500.4050 ####[facility] [address] [place], [address] Automated blood hematocrit ( percentage)Ordered By: Huber Goldo on 08-27-2024 Hematocrit (Bld) [Volume fraction] 36.2 % Low 37-47 [facility] Comment on above: Performed By: #### M 200.1000, L300.4310, L503.6005, L300.3900, L100.0100, L500.4050 ####[facility] [address] [place], [place], [address] Automated lymphocyte count a s percentage of total leukocytesOrdered By: Huber Goldo on 08-27-2024 Lymphocytes/100 WBC Auto (Unsp spec) 7.0 % Low 19-41 [facility] BUN/creatinine ratioOrdered By: Huber Goldo on 08-27-2024 Urea nitrogen/Creatinine [Mass ratio] 12.2 mg/mg 10-20 [facility] Basophil percentageOrdered B y: Huber Ballard on 08-27-2024 Basophils/100 WBC (Bld) 0.5 % Normal 0-1 [facility] Comment on above: Performed By: #### M 200.1000, L300.4310, L503.6005, L300.3900, L100.0100, L500.4050 ####[facility] [address] [place], [address] Bilirubin Test strip Ql (U)O rdered By: Huber Ballard on 08-27-2024 Bilirubin Ql (U) Negative Negative [facility] Bilirubin, totalOrdered By: Huber Ballard on 08-27-2024 Bilirubin [Mass/Vol] 0.24 mg/dL Normal 0.00-1.30 [facility] Comment on above: Performed By: #### M 200.1000, L300.4310, L503.6005, L300.3900, L100.0100, L500.4050 ####[facility] [address] [place], [address] Blood cultureOrdered By: Huber Ballard on 08-27-2024 Bacteria identified Cx Nom (Bld) No growth in 5 days. [facility] CBC W/Diff, Automatedon 08-17 Absolute Lymph 0.45 X10 3/uL Low 0.83-4.51 [facility] Comment on above: Performed By: #### M 200.1000, L300.4310, L503.6005, L300.3900, L100.0100, L500.4050 ####[facility] [address] [place], [address] Absolute Neut 5.6 X10 3/uL Normal 2.0-7.7 [facility] Comment on above: Performed By: #### M 200.1000, L300.4310, L503.6005, L300.3900, L100.0100, L500.4050 ####[facility] [address] [place], [address] IG% 0.300 Normal 0.0-0.9 [facility] Comment on above: Result Comment: IG% - Immature Granulocytes (promyelocytes, myelocytes andmetamyelocytes) > 1% indicates that a LEFT SHIFT is Present. Performed By: #### M 200.1000, L300.4310, L503.6005, L300.3900, L100.0100, L500.4050 ####[facility] [address] [place], [address] Lymphocytes/100 WBC (Bld) 7.0 % Low 19-41 [facility] Comment on above: Performed By: #### M 200.1000, L300.4310, L503.6005, L300.3900, L100.0100, L500.4050 ####[facility] [address] [place], [address] Nucleated RBC (Bld) [#/Vol] 0 10*3/uL Normal 0-5 [facility] Comment on above: Performed By: #### M 200.1000, L300.4310, L503.6005, L300.3900, L100.0100, L500.4050 ####[facility] [address] [place], [address] RDW SD 46.5 fl High 35.1-43.9 [facility] Comment on above: Performed By: #### M 200.1000, L300.4310, L503.6005, L300.3900, L100.0100, L500.4050 ####[facility] [address] [place], [address] Carbon dioxide, total [Moles /volume] in Central venous bloodOrdered By: Huber Ballard on 08-27-2024 CO2 [Moles/Vol] 22.4 mmol/L Normal 21.0-32.0 [facility] Comment on above: Performed By: #### M 200.1000, L300.4310, L503.6005, L300.3900, L100.0100, L500.4050 ####[facility] [address] [place], [address] Chest 1 View (Portable)on Chest 1 View (Portable) Normal [facility] Chloride assayOrdered By: Malcom Ballard on 08-27-2024 Chloride [Moles/Vol] 102 mmol/L Normal 98-108 [facility] Comment on above: Performed By: #### M 200.1000, L300.4310, L503.6005, L300.3900, L100.0100, L500.4050 ####[facility] [address] [place], [address] Comprehensive Metabolic Prof jony 08-27-2024 ALK PHOS 97 U/L Normal 35-104 [facility] Comment on above: Performed By: #### M 200.1000, L300.4310, L503.6005, L300.3900, L100.0100, L500.4050 ####[facility] [address] [place], [address] BUN/CRE 12.2 RATIO Normal 10-20 [facility] Comment on above: Performed By: #### M 200.1000, L300.4310, L503.6005, L300.3900, L100.0100, L500.4050 ####[facility] [address] [place], [address] ECRCL 35.35 ml/min Low 50-250 [facility] Comment on above: Performed By: #### M 200.1000, L300.4310, L503.6005, L300.3900, L100.0100, L500.4050 ####[facility] [address] [place], [address] GAP 11 Normal 5-15 [facility] Comment on above: Performed By: #### M 200.1000, L300.4310, L503.6005, L300.3900, L100.0100, L500.4050 ####[facility] [address] [place], [address] Potassium [Moles/Vol] 4.3 mmol/L Normal 3.3-5.1 [facility] Comment on above: Result Comment: Hemo lysis present, Results??could be affected.?? Performed By: #### M 200.1000, L300.4310, L503.6005, L300.3900, L100.0100, L500.4050 ####[facility] [address] [place], [place], [phone] T PROT 6.6 g/dL Normal 5.9-8.4 [facility] Comment on above: Performed By: #### M 200.1000, L300.4310, L503.6005, L300.3900, L100.0100, L500.4050 ####[facility] [address] [place], [place], [phone] Comprehensive Metabolic Prof ilOrdered By: Huber Ballard on 08-27-2024 AST [Catalytic activity/Vol] 53 U/L High <=31 [facility] Comment on above: Hemolysis present, R esults could be affected. Result Comment: Hemo lysis present, Results??could be affected.?? Performed By: #### M 200.1000, L300.4310, L503.6005, L300.3900, L100.0100, L500.4050 ####[facility] [address] [place], [address] Emergency Department Summary on 08-27-2024 Emergency Department Summary Normal [facility] Eosinophil percentageOrdered By: Huber Ballard on 08-27-2024 Eosinophils/100 WBC (Bld) 0.2 % Normal 0-5 [facility] Comment on above: Performed By: #### M 200.1000, L300.4310, L503.6005, L300.3900, L100.0100, L500.4050 ####[facility] [address] [place], [place], [phone] Erythrocyte distribution wid th ratioOrdered By: Huber Ballard on 08-27-2024 Erythrocyte distribution width (RBC) [Ratio] 13.2 % Normal 11.6-14.6 [facility] Comment on above: Performed By: #### M 200.1000, L300.4310, L503.6005, L300.3900, L100.0100, L500.4050 ####[facility] [address] [place], [address] Erythrocyte distribution wid th standard deviationOrdered By: Huber Ballard on 08-27-2024 Erythrocyte distribution width (RBC) [Ratio] 46.5 fl High 35.1-43.9 [facility] Glomerular filtration rate ( GFR) estimation/1.73 sq m using serum, plasma, or whole bOrdered By: Huber Ballard on 08-27-2024 GFR/1.73 sq M.predicted among non-blacks MDRD (S/P/Bld) [Vol rate/Area] 54 mL/min/{1.73_m2} Low >60 [facility] Comment on above: mL/min/1.73m2 CKD-EP I Creatinine Equation (2020) Result Comment: mL/m in/1.73m2 CKD-EPI Creatinine Equation (2020) Performed By: #### M 200.1000, L300.4310, L503.6005, L300.3900, L100.0100, L500.4050 ####[facility] [address] [place], [place], [phone] H AND P Exam - Hospitaliston 08-27-2024 H&P Exam - Hospitalist Normal [facility] Hemoglobin measurementOrdere d By: Huber Ballard on 08-27-2024 Hemoglobin (Bld) [Mass/Vol] 12.1 g/dL Normal 12.0-15.0 [facility] Comment on above: Performed By: #### M 200.1000, L300.4310, L503.6005, L300.3900, L100.0100, L500.4050 ####[facility] [address] [place], [address] Immature granulocytes/100 WB C Auto (Bld)Ordered By: Huber Ballard on 08-27-2024 Immature granulocytes/100 WBC (Bld) 0.300 % 0.0-0.9 [facility] Comment on above: IG% - Immature Granu locytes (promyelocytes, myelocytes and metamyelocytes) > 1% indicates that a LEFT SHIFT is Present. International normalized rat io (INR) calculationOrdered By: Huber Ballard on 08-27-2024 INR Coag (Bld) [Relative time] 1.0 {INR} [facility] Ketones Test strip Ql (U)Ord ered By: Huber Ballard on 08-27-2024 Ketones Ql (U) Negative Negative [facility] Lactic acid measurementOrder ed By: Huber Ballard on 08-27-2024 Lactate [Moles/Vol] 1.1 mmol/L Normal 0.0-2.0 [facility] Comment on above: Order Comment: Y Performed By: #### M 200.1000, L300.4310, L503.6005, L300.3900, L100.0100, L500.4050 ####[facility] [address] [place], [place], [phone] MCV (mean corpuscular volume ) determinationOrdered By: Huber Ballard on 08-27-2024 MCV (RBC) [Entitic vol] 94.8 fL Normal 81-99 [facility] Comment on above: Performed By: #### M 200.1000, L300.4310, L503.6005, L300.3900, L100.0100, L500.4050 ####[facility] [address] [place], [place], [phone] Mean corpuscular hemoglobin (MCH) determinationOrdered By: Huber Ballard on 08-27-2024 MCH (RBC) [Entitic mass] 31.7 pg Normal 27.0-32.0 [facility] Comment on above: Performed By: #### M 200.1000, L300.4310, L503.6005, L300.3900, L100.0100, L500.4050 ####[facility] [address] [place], [place], [phone] Mean corpuscular hemoglobin concentration (MCHC) determinationOrdered By: Huber Ballard on 08-27-2024 MCHC (RBC) [Mass/Vol] 33.4 g/dL Normal 32-36 [facility] Comment on above: Performed By: #### M 200.1000, L300.4310, L503.6005, L300.3900, L100.0100, L500.4050 ####[facility] [address] [place], [address] Mean platelet volume determi nationOrdered By: Huber Ballard on 08-27-2024 Platelet mean volume (Bld) [Entitic vol] 9.6 fL Normal 6.2-12.0 [facility] Comment on above: Performed By: #### M 200.1000, L300.4310, L503.6005, L300.3900, L100.0100, L500.4050 ####[facility] [address] [place], [address] Microscopic analysis of urin e for red blood cells (RBC)Ordered By: Huber Ballard on 08-27-2024 Microscopic analysis of urine for red blood cells (RBC) 0-5 SEEN /hpf 0-5 [facility] Monocyte percentageOrdered B y: Huber Ballard on 08-27-2024 Monocytes/100 WBC (Bld) 5.1 % Normal 0-10 [facility] Comment on above: Performed By: #### M 200.1000, L300.4310, L503.6005, L300.3900, L100.0100, L500.4050 ####[facility] [address] [place], [place], [phone] Mucus LM Ql (Urine sed)Order ed By: Huber Ballard on 08-27-2024 Mucus Ql (Urine sed) 0 SEEN /hpf [facility] Neutrophil percentageOrdered By: Huber Ballard on 08-27-2024 Neutrophils/100 WBC (Bld) 86.9 % High 47-70 [facility] Comment on above: Performed By: #### M 200.1000, L300.4310, L503.6005, L300.3900, L100.0100, L500.4050 ####[facility] [address] [place], [place], [phone] Nitrite Test strip Ql (U)Ord ered By: Huber Ballard on 08-27-2024 Nitrite Ql (U) Negative Negative [facility] No Panel InformationOrdered By: Huber Ballard on 08-27-2024 53 U/L High <32 [facility] Nucleated red blood cell per centageOrdered By: Huber Ballard on 08-27-2024 Nucleated RBC/100 WBC (Bld) [Ratio] 0 % 0-5 [facility] Partial Thromboplast Timeon 08-27-2024 aPTT Coag (Bld) [Time] 36.4 s High 24.1-36.2 [facility] Comment on above: Performed By: #### M 200.1000, L300.4310, L503.6005, L300.3900, L100.0100, L500.4050 ####[facility] [address] [place], [place], [phone] Platelet countOrdered By: Malcom yandel Elio on 08-27-2024 Platelets (Bld) [#/Vol] 332 10*3/uL Normal 150-450 [facility] Comment on above: Performed By: #### M 200.1000, L300.4310, L503.6005, L300.3900, L100.0100, L500.4050 ####[facility] [address] [place], [place], [phone] Potassium measurement (mass/ volume)Ordered By: Huber Ballard on 08-27-2024 Potassium (Unsp spec) [Mass/Vol] 4.3 mmol/L 3.3-5.1 [facility] Comment on above: Hemolysis present, R esults could be affected. Protein Test strip Ql (U)Ord ered By: Huber Ballard on 08-27-2024 Protein Ql (U) 30 mg/dl High Negative [facility] Prothrombin Time w/INRon INR Coag (PPP) [Relative time] 1.0 {INR} Normal [facility] Comment on above: Performed By: #### M 200.1000, L300.4310, L503.6005, L300.3900, L100.0100, L500.4050 ####[facility] [address] [place], [place], [phone] Prothrombin timeOrdered By: Huber Ballard on 08-27-2024 PT Coag (PPP) [Time] 13.4 s Normal 11.7-14.9 [facility] Comment on above: Performed By: #### M 200.1000, L300.4310, L503.6005, L300.3900, L100.0100, L500.4050 ####[facility] [address] [place], [place], [phone] Serum creatinine measurement (mass/volume)Ordered By: Huber Ballard on 08-27-2024 Creatinine [Mass/Vol] 1.08 mg/dL Normal 0.70-1.20 [facility] Comment on above: Performed By: #### M 200.1000, L300.4310, L503.6005, L300.3900, L100.0100, L500.4050 ####[facility] [address] [place], [place], [phone] Serum globulin measurementOr dered By: Huber Ballard on 08-27-2024 Globulin (S) [Mass/Vol] 3.3 g/dL Normal 2.2-4.2 [facility] Comment on above: Performed By: #### M 200.1000, L300.4310, L503.6005, L300.3900, L100.0100, L500.4050 ####[facility] [address] [place], [place], [phone] Serum glucose measurement (m ass/volume)Ordered By: Huber Ballard on 08-27-2024 Glucose [Mass/Vol] 91 mg/dL Normal 70-99 [facility] Comment on above: Performed By: #### M 200.1000, L300.4310, L503.6005, L300.3900, L100.0100, L500.4050 ####[facility] [address] [place], [address] Serum or plasma alanine soliz otransferase (ALT) measurementOrdered By: Huber Ballard on 08-27-2024 ALT [Catalytic activity/Vol] 19 U/L Normal <=34 [facility] Comment on above: Hemolysis present, R esults could be affected. Result Comment: Hemo lysis present, Results??could be affected.?? Performed By: #### M 200.1000, L300.4310, L503.6005, L300.3900, L100.0100, L500.4050 ####[facility] [address] [place], [address] Serum or plasma albumin rosangela urement (mass/volume)Ordered By: Huber Ballard on 08-27-2024 Albumin [Mass/Vol] 3.3 g/dL Low 3.4-4.8 [facility] Comment on above: Performed By: #### M 200.1000, L300.4310, L503.6005, L300.3900, L100.0100, L500.4050 ####[facility] [address] [place], [address] Serum or plasma albumin/glob ulin mass ratioOrdered By: Huber Ballard on 08-27-2024 Albumin/Globulin [Mass ratio] 1.0 {ratio} Normal 0.9-2.4 [facility] Comment on above: Performed By: #### M 200.1000, L300.4310, L503.6005, L300.3900, L100.0100, L500.4050 ####[facility] [address] [place], [address] Serum or plasma alkaline faustino sphatase measurementOrdered By: Huber Ballard on 08-27-2024 ALP [Catalytic activity/Vol] 97 U/L 35-104 [facility] Serum or plasma calcium rosangela urement (mass/volume)Ordered By: Huber Ballard on 08-27-2024 Calcium [Mass/Vol] 8.4 mg/dL Normal 7.6-11.0 [facility] Comment on above: Performed By: #### M 200.1000, L300.4310, L503.6005, L300.3900, L100.0100, L500.4050 ####[facility] [address] [place], [place], [phone] Serum or plasma urea nitroge n measurement (mass/volume)Ordered By: Huber Ballard on 08-27-2024 Urea nitrogen [Mass/Vol] 13 mg/dL Normal 4-19 [facility] Comment on above: Performed By: #### M 200.1000, L300.4310, L503.6005, L300.3900, L100.0100, L500.4050 ####[facility] [address] [place], [place], [phone] Sodium levelOrdered By: Huber Ballard on 08-27-2024 Sodium [Moles/Vol] 136 mmol/L Normal 133-145 [facility] Comment on above: Performed By: #### M 200.1000, L300.4310, L503.6005, L300.3900, L100.0100, L500.4050 ####[facility] [address] [place], [place], [phone] Squamous epithelial cells de tection in urine sediment by light microscopyOrdered By: Huber Ballard on 08-27-2024 Epithelial cells.squamous LM Ql (Urine sed) 0-5 SEEN /hpf 5-10 [facility] Total proteinOrdered By: Huber Ballard on 08-27-2024 Protein [Mass/Vol] 6.6 g/dL 5.9-8.4 [facility] Urinalysis, Completeon 08-27 BACTERIA RARE Normal None Seen [facility] Comment on above: Order Comment: DENA TER SPECIMEN Performed By: #### M 100.2200, L400.0001 ####[facility] [address] [place], [address] EPI,SQUAMOUS 0-5 SEEN Normal 5-10 [facility] Comment on above: Order Comment: DENA TER SPECIMEN Performed By: #### M 100.2200, L400.0001 ####[facility] [address] [place], [address] RBC 0-5 SEEN Normal 0-5 [facility] Comment on above: Order Comment: DENA TER SPECIMEN Performed By: #### M 100.2200, L400.0001 ####[facility] [address] [place], [address] YEAST 2+ /hpf Normal None Seen [facility] Comment on above: Order Comment: DENA TER SPECIMEN Performed By: #### M 100.2200, L400.0001 ####[facility] [address] [place], [address] WBC 5-10 SEEN Normal 0-5 [facility] Comment on above: Order Comment: DENA TER SPECIMEN Performed By: #### M 100.2200, L400.0001 ####[facility] [address] [place], [address] Mucus Ql (Urine sed) 0 SEEN Normal [facility] Comment on above: Order Comment: DENA TER SPECIMEN Performed By: #### M 100.2200, L400.0001 ####[facility] [address] [place], [address] Urine Legionella pneumophila antigen detectionOrdered By: Christofer Espino on 08-27-2024 L. pneumophila Ag Ql (U) [facility] Urine clarityOrdered By: Huber Ballard on 08-27-2024 Clarity (U) Sl Cldy Clear [facility] Urine color determinationOrd ered By: Huber Ballard on 08-27-2024 Color (U) Yellow Yellow [facility] Urine cultureOrdered By: Huber Ballard on 08-27-2024 Bacteria identified Cx Nom (U) Yeast, not Mary Alice albicans Abnormal [facility] Urine glucose detectionOrder ed By: Huber Ballard on 08-27-2024 Glucose Ql (U) Normal mg/dl Normal [facility] Urine leukocyte esterase det ection by dipstickOrdered By: Huber Ballard on 08-27-2024 Leukocyte esterase Test strip Ql (U) Negative Negative [facility] Urine pHOrdered By: Huber santamaria on 08-27-2024 pH (U) 6.0 [pH] 5.0 - 8.0 [facility] Urine sediment bacteria coun t by microscopy (number/high power field)Ordered By: Huber Ballard on 08-27-2024 Bacteria LM.HPF (Urine sed) [#/Area] RARE /hpf None Seen [facility] Urine sediment yeast count b y microscopy (number/high powered field)Ordered By: Huber Ballard on 08-27-2024 Yeast LM.HPF (Urine sed) [#/Area] 2 /[HPF] None Seen [facility] Urine specific gravity measu rementOrdered By: Huberyandel Ballard on 08-27-2024 Specific gravity (U) [Rel density] 1.015 1.002-1.03 0 [facility] Urine urobilinogen measureme ntOrdered By: Huber Ballard on 08-27-2024 Urobilinogen Ql (U) Normal mg/dl Normal [facility] White blood cell (WBC) count Ordered By: Huber Ballard on 08-27-2024 WBC (Bld) [#/Vol] 6.5 10*3/uL Normal 4.4-11.0 [facility] Comment on above: Performed By: #### M 200.1000, L300.4310, L503.6005, L300.3900, L100.0100, L500.4050 ####[facility] [address] [place], [address] White blood cell countOrdere d By: Huber Ballard on 08-27-2024 White blood cell count 5-10 SEEN /hpf 0-5 [facility] Absolute lymphocyte countOrd ered By: Harish Luis on 07-15-2024 Lymphocytes Auto (Unsp spec) [#/Vol] 1.65 10*3/uL 0.83-4.51 [facility] Absolute neutrophil countOrd ered By: Harish Luis on 07-15-2024 Neutrophils (Bld) [#/Vol] 4.2 10*3/uL 2.0-7.7 [facility] Anion gap in Serum or Plasma Ordered By: Harish Toby on 07-15-2024 Anion gap [Moles/Vol] 10 mmol/L 5-15 [facility] Automated lymphocyte count a s percentage of total leukocytesOrdered By: Harish Luis on 07-15-2024 Lymphocytes/100 WBC Auto (Unsp spec) 25.3 % 19-41 [facility] BUN/creatinine ratioOrdered By: Harish Toby on 07-15-2024 Urea nitrogen/Creatinine [Mass ratio] 8.0 mg/mg Low 10-20 [facility] Basophil percentageOrdered B y: Harish Toby on 07-15-2024 Basophils/100 WBC (Bld) 0.6 % 0-1 [facility] Bilirubin, totalOrdered By: Harish Luis on 07-15-2024 Bilirubin [Mass/Vol] 0.25 mg/dL 0.00-1.30 [facility] Brain/Head without Contrasto n 07-15-2024 Brain/Head without Contrast Normal [facility] CBC W/Diff, Automatedon - Absolute Lymph 1.65 X10 3/uL Normal 0.83-4.51 [facility] Comment on above: Performed By: #### L 500.4100, L100.0100, L501.9520, L506.1001, L500.4050 ####[facility] [address] [place], [address] Absolute Neut 4.2 X10 3/uL Normal 2.0-7.7 [facility] Comment on above: Performed By: #### L 500.4100, L100.0100, L501.9520, L506.1001, L500.4050 ####[facility] [address] [place], [address] Basophils/100 WBC (Bld) 0.6 % Normal 0-1 [facility] Comment on above: Performed By: #### L 500.4100, L100.0100, L501.9520, L506.1001, L500.4050 ####[facility] [address] [place], [address] Eosinophils/100 WBC (Bld) 1.8 % Normal 0-5 [facility] Comment on above: Performed By: #### L 500.4100, L100.0100, L501.9520, L506.1001, L500.4050 ####[facility] [address] [place], [address] Erythrocyte distribution width (RBC) [Ratio] 13.9 % Normal 11.6-14.6 [facility] Comment on above: Performed By: #### L 500.4100, L100.0100, L501.9520, L506.1001, L500.4050 ####[facility] [address] [place], [address] Hematocrit (Bld) [Volume fraction] 35.2 % Low 37-47 [facility] Comment on above: Performed By: #### L 500.4100, L100.0100, L501.9520, L506.1001, L500.4050 ####[facility] [address] [place], [address] Hemoglobin (Bld) [Mass/Vol] 11.6 g/dL Low 12.0-15.0 [facility] Comment on above: Performed By: #### L 500.4100, L100.0100, L501.9520, L506.1001, L500.4050 ####[facility] [address] [place], [address] IG% 0.600 Normal 0.0-0.9 [facility] Comment on above: Result Comment: IG% - Immature Granulocytes (promyelocytes, myelocytes andmetamyelocytes) > 1% indicates that a LEFT SHIFT is Present. Performed By: #### L 500.4100, L100.0100, L501.9520, L506.1001, L500.4050 ####[facility] [address] [place], [address] Lymphocytes/100 WBC (Bld) 25.3 % Normal 19-41 [facility] Comment on above: Performed By: #### L 500.4100, L100.0100, L501.9520, L506.1001, L500.4050 ####[facility] [address] [place], [address] MCH (RBC) [Entitic mass] 32.6 pg High 27.0-32.0 [facility] Comment on above: Performed By: #### L 500.4100, L100.0100, L501.9520, L506.1001, L500.4050 ####[facility] [address] [place], [address] MCHC (RBC) [Mass/Vol] 33.0 g/dL Normal 32-36 [facility] Comment on above: Performed By: #### L 500.4100, L100.0100, L501.9520, L506.1001, L500.4050 ####[facility] [address] [place], [address] MCV (RBC) [Entitic vol] 98.9 fL Normal 81-99 [facility] Comment on above: Performed By: #### L 500.4100, L100.0100, L501.9520, L506.1001, L500.4050 ####[facility] [address] [place], [address] Monocytes/100 WBC (Bld) 6.6 % Normal 0-10 [facility] Comment on above: Performed By: #### L 500.4100, L100.0100, L501.9520, L506.1001, L500.4050 ####[facility] [address] [place], [address] Neutrophils/100 WBC (Bld) 65.1 % Normal 47-70 [facility] Comment on above: Performed By: #### L 500.4100, L100.0100, L501.9520, L506.1001, L500.4050 ####[facility] [address] [place], [address] Nucleated RBC (Bld) [#/Vol] 0 10*3/uL Normal 0-5 [facility] Comment on above: Performed By: #### L 500.4100, L100.0100, L501.9520, L506.1001, L500.4050 ####[facility] [address] [place], [address] Platelet mean volume (Bld) [Entitic vol] 9.5 fL Normal 6.2-12.0 [facility] Comment on above: Performed By: #### L 500.4100, L100.0100, L501.9520, L506.1001, L500.4050 ####[facility] [address] [place], [address] Platelets (Bld) [#/Vol] 415 10*3/uL Normal 150-450 [facility] Comment on above: Performed By: #### L 500.4100, L100.0100, L501.9520, L506.1001, L500.4050 ####[facility] [address] [place], [address] RBC (Bld) [#/Vol] 3.56 10*6/uL Low 4.2-5.4 [facility] Comment on above: Performed By: #### L 500.4100, L100.0100, L501.9520, L506.1001, L500.4050 ####[facility] [address] [place], [address] RDW SD 51.2 fl High 35.1-43.9 [facility] Comment on above: Performed By: #### L 500.4100, L100.0100, L501.9520, L506.1001, L500.4050 ####[facility] [address] [place], [address] WBC (Bld) [#/Vol] 6.5 10*3/uL Normal 4.4-11.0 [facility] Comment on above: Performed By: #### L 500.4100, L100.0100, L501.9520, L506.1001, L500.4050 ####[facility] [address] [place], [address] Calculated very low density lipoprotein (VLDL) cholesterol measurementOrdered By: Harish Luis on 07-15-2024 Calculated very low density lipoprotein (VLDL) cholesterol measurement 15 mg/dL 5-40 [facility] Carbon dioxide, total [Moles /volume] in Central venous bloodOrdered By: Harish Luis on 07-15-2024 CO2 [Moles/Vol] 23.6 mmol/L 21.0-32.0 [facility] Chloride assayOrdered By: Levar Luis on 07-15-2024 Chloride [Moles/Vol] 109 mmol/L High 98-108 [facility] Comprehensive Metabolic Prof ilon 07-15-2024 Albumin [Mass/Vol] 3.2 g/dL Low 3.4-4.8 [facility] Comment on above: Performed By: #### L 500.4100, L100.0100, L501.9520, L506.1001, L500.4050 ####[facility] [address] [place], [address] Albumin/Globulin [Mass ratio] 1.0 {ratio} Normal 0.9-2.4 [facility] Comment on above: Performed By: #### L 500.4100, L100.0100, L501.9520, L506.1001, L500.4050 ####[facility] [address] [place], [address] ALK PHOS 100 U/L Normal 35-104 [facility] Comment on above: Performed By: #### L 500.4100, L100.0100, L501.9520, L506.1001, L500.4050 ####[facility] [address] [place], [address] ALT [Catalytic activity/Vol] 10 U/L Normal <=34 [facility] Comment on above: Performed By: #### L 500.4100, L100.0100, L501.9520, L506.1001, L500.4050 ####[facility] [address] [place], [address] AST [Catalytic activity/Vol] 16 U/L Normal <=31 [facility] Comment on above: Performed By: #### L 500.4100, L100.0100, L501.9520, L506.1001, L500.4050 ####[facility] [address] [place], [address] Bilirubin [Mass/Vol] 0.25 mg/dL Normal 0.00-1.30 [facility] Comment on above: Performed By: #### L 500.4100, L100.0100, L501.9520, L506.1001, L500.4050 ####[facility] [address] [place], [address] BUN/CRE 8.0 RATIO Low 10-20 [facility] Comment on above: Performed By: #### L 500.4100, L100.0100, L501.9520, L506.1001, L500.4050 ####[facility] [address] [place], [address] Calcium [Mass/Vol] 8.9 mg/dL Normal 7.6-11.0 [facility] Comment on above: Performed By: #### L 500.4100, L100.0100, L501.9520, L506.1001, L500.4050 ####[facility] [address] [place], [address] Chloride [Moles/Vol] 109 mmol/L High 98-108 [facility] Comment on above: Performed By: #### L 500.4100, L100.0100, L501.9520, L506.1001, L500.4050 ####[facility] [facility] [address] [place], [address] CO2 [Moles/Vol] 23.6 mmol/L Normal 21.0-32.0 [facility] Comment on above: Performed By: #### L 500.4100, L100.0100, L501.9520, L506.1001, L500.4050 ####[facility] [address] [place], [address] Creatinine [Mass/Vol] 0.97 mg/dL Normal 0.70-1.20 [facility] Comment on above: Performed By: #### L 500.4100, L100.0100, L501.9520, L506.1001, L500.4050 ####[facility] [address] [place], [address] GAP 10 Normal 5-15 [facility] Comment on above: Performed By: #### L 500.4100, L100.0100, L501.9520, L506.1001, L500.4050 ####[facility] [address] [place], [address] GFR/1.73 sq M.predicted among non-blacks MDRD (S/P/Bld) [Vol rate/Area] 61 mL/min/{1.73_m2} Normal >60 [facility] Comment on above: Result Comment: mL/m in/1.73m2 CKD-EPI Creatinine Equation (2020) Performed By: #### L 500.4100, L100.0100, L501.9520, L506.1001, L500.4050 ####[facility] [address] [place], [address] Globulin (S) [Mass/Vol] 3.1 g/dL Normal 2.2-4.2 [facility] Comment on above: Performed By: #### L 500.4100, L100.0100, L501.9520, L506.1001, L500.4050 ####[facility] [address] [place], [address] Glucose [Mass/Vol] 114 mg/dL High 70-99 [facility] Comment on above: Performed By: #### L 500.4100, L100.0100, L501.9520, L506.1001, L500.4050 ####[facility] [address] [place], [address] Potassium [Moles/Vol] 3.5 mmol/L Normal 3.3-5.1 [facility] Comment on above: Performed By: #### L 500.4100, L100.0100, L501.9520, L506.1001, L500.4050 ####[facility] [address] [place], [address] Sodium [Moles/Vol] 143 mmol/L Normal 133-145 [facility] Comment on above: Performed By: #### L 500.4100, L100.0100, L501.9520, L506.1001, L500.4050 ####[facility] [address] [place], [address] T PROT 6.3 g/dL Normal 5.9-8.4 [facility] Comment on above: Performed By: #### L 500.4100, L100.0100, L501.9520, L506.1001, L500.4050 ####[facility] [address] [place], [address] Urea nitrogen [Mass/Vol] 8 mg/dL Normal 4-19 [facility] Comment on above: Performed By: #### L 500.4100, L100.0100, L501.9520, L506.1001, L500.4050 ####[facility] [address] [place], [address] Eosinophil percentageOrdered By: Harish Luis on 07-15-2024 Eosinophils/100 WBC (Bld) 1.8 % 0-5 [facility] Erythrocyte distribution wid th ratioOrdered By: Harish Luis on 07-15-2024 Erythrocyte distribution width (RBC) [Ratio] 13.9 % 11.6-14.6 [facility] Erythrocyte distribution wid th standard deviationOrdered By: Harish Luis on 07-15-2024 Erythrocyte distribution width (RBC) [Ratio] 51.2 fl High 35.1-43.9 [facility] Glomerular filtration rate ( GFR) estimation/1.73 sq m using serum, plasma, or whole bOrdered By: Harish Luis on 07-15-2024 GFR/1.73 sq M.predicted among non-blacks MDRD (S/P/Bld) [Vol rate/Area] 61 mL/min/{1.73_m2} >60 [facility] Comment on above: mL/min/1.73m2 CKD-EP I Creatinine Equation (2020) Hematocrit Auto (Bld) [Volum e fraction]Ordered By: Harish Luis on 07-15-2024 Hematocrit (Bld) [Volume fraction] 35.2 % Low 37-47 [facility] Hemoglobin measurementOrdere d By: Harish Luis 07-15-2024 Hemoglobin (Bld) [Mass/Vol] 11.6 g/dL Low 12.0-15.0 [facility] Immature granulocytes/100 WB C Auto (Bld)Ordered By: Harish Luis on 07-15-2024 Immature granulocytes/100 WBC (Bld) 0.600 % 0.0-0.9 [facility] Comment on above: IG% - Immature Granu locytes (promyelocytes, myelocytes and metamyelocytes) > 1% indicates that a LEFT SHIFT is Present. LDL calc ser/plasOrdered By: Harish Luis on 07-15-2024 Cholesterol in LDL [Mass/Vol] 151 mg/dL Normal [facility] Comment on above: Gpmgcwurkc=011-836 m g/dL & Higher Uvwm=823 mg/dL or greater Result Comment: Bord jdtwhm=033-916 mg/dL Higher Zxoh=288 mg/dL or greater Performed By: #### L 500.4100, L100.0100, L501.9520, L506.1001, L500.4050 ####[facility] [address] [place], [address] Laboratory - Chemistry and C hemistry - challengeOrdered By: Harish Luis on 07-15-2024 AST [Catalytic activity/Vol] 16 U/L <32 [facility] Lipid Profileon 07-15-2024 CHOL:HDL 3.13 Normal [facility] Comment on above: Performed By: #### L 500.4100, L100.0100, L501.9520, L506.1001, L500.4050 ####[facility] [address] [place], [address] Cholesterol in VLDL [Mass/Vol] 15 mg/dL Normal 5-40 [facility] Comment on above: Performed By: #### L 500.4100, L100.0100, L501.9520, L506.1001, L500.4050 ####[facility] [address] [place], [address] MCV (mean corpuscular volume ) determinationOrdered By: Harish Luis on 07-15-2024 MCV (RBC) [Entitic vol] 98.9 fL 81-99 [facility] Mean corpuscular hemoglobin (MCH) determinationOrdered By: Harish Luis on 07-15-2024 MCH (RBC) [Entitic mass] 32.6 pg High 27.0-32.0 [facility] Mean corpuscular hemoglobin concentration (MCHC) determinationOrdered By: Harish Luis on 07-15-2024 MCHC (RBC) [Mass/Vol] 33.0 g/dL 32-36 [facility] Mean platelet volume determi nationOrdered By: Harish Luis on 07-15-2024 Platelet mean volume (Bld) [Entitic vol] 9.5 fL 6.2-12.0 [facility] Monocyte percentageOrdered B y: Harish Luis on 07-15-2024 Monocytes/100 WBC (Bld) 6.6 % 0-10 [facility] Neutrophil percentageOrdered By: Harish Luis on 07-15-2024 Neutrophils/100 WBC (Bld) 65.1 % 47-70 [facility] No Panel InformationOrdered By: Harish Luis on 07-15-2024 16 U/L <32 [facility] Nucleated red blood cell per centageOrdered By: Harish Luis on 07-15-2024 Nucleated RBC/100 WBC (Bld) [Ratio] 0 % 0-5 [facility] Platelet countOrdered By: Levar Luis on 07-15-2024 Platelets (Bld) [#/Vol] 415 10*3/uL 150-450 [facility] Potassium measurement (mass/ volume)Ordered By: Harish Luis on 07-15-2024 Potassium (Unsp spec) [Mass/Vol] 3.5 mmol/L 3.3-5.1 [facility] RBC Auto (Bld) [#/Vol]Ordere d By: Harish Luis on 07-15-2024 RBC (Bld) [#/Vol] 3.56 10*6/uL Low 4.2-5.4 [facility] Screening total cholesterol/ high density lipoprotein (HDL) cholesterol ratioOrdered By: Harish Luis on 07-15-2024 Cholesterol.total/Tamera sterol in HDL [Mass ratio] 3.13 {ratio} [facility] Serum creatinine measurement (mass/volume)Ordered By: Hraish Luis on 07-15-2024 Creatinine [Mass/Vol] 0.97 mg/dL 0.70-1.20 [facility] Serum globulin measurementOr dered By: Harish Luis 07-15-2024 Globulin (S) [Mass/Vol] 3.1 g/dL 2.2-4.2 [facility] Serum glucose measurement (m ass/volume)Ordered By: Harish Luis 07-15-2024 Glucose [Mass/Vol] 114 mg/dL High 70-99 [facility] Serum or plasma alanine soliz otransferase (ALT) measurementOrdered By: Harish Luis 07-15-2024 ALT [Catalytic activity/Vol] 10 U/L <35 [facility] Serum or plasma albumin rosangela urement (mass/volume)Ordered By: Harish Luis 07-15-2024 Albumin [Mass/Vol] 3.2 g/dL Low 3.4-4.8 [facility] Serum or plasma albumin/glob ulin mass ratioOrdered By: Harish Luis 07-15-2024 Albumin/Globulin [Mass ratio] 1.0 {ratio} 0.9-2.4 [facility] Serum or plasma alkaline faustino sphatase measurementOrdered By: Harish Luis 07-15-2024 ALP [Catalytic activity/Vol] 100 U/L 35-104 [facility] Serum or plasma calcium rosangela urement (mass/volume)Ordered By: Harish Luis 07-15-2024 Calcium [Mass/Vol] 8.9 mg/dL 7.6-11.0 [facility] Serum or plasma cholesterol in HDL measurement (mass/volume)Ordered By: Harish Luis 07-15-2024 Cholesterol in HDL [Mass/Vol] 78 mg/dL Normal [facility] Comment on above: National Cholesterol Education [...] #### L 500.4100, L100.0100, L501.9520, L506.1001, L500.4050 ####[facility] [address] [place], [place], [address] Serum or plasma cholesterol measurement (mass/volume)Ordered By: Harish Luis on 07-15-2024 Cholesterol [Mass/Vol] 245 mg/dL High <=200 [facility] Comment on above: Cholesterol level, D esirable <200 mg/dLBorderline high cholesterol 200-239 mg/dLHigh cholesterol >=240 mg/dLRecommendations of the NCEP Adult Treatment Panel for the following risk-cutoff thresholds for the [place] population. Result Comment: Chol esterol level, Desirable <200 mg/dLBorderline high cholesterol 200-239 mg/dLHigh cholesterol >=240 mg/dLRecommendations of the NCEP Adult Treatment Panel for thefollowing risk-cutoff thresholds for the [place] Americanpopulation. Performed By: #### L 500.4100, L100.0100, L501.9520, L506.1001, L500.4050 ####[facility] [address] [place], [place], [address] Serum or plasma urea nitroge n measurement (mass/volume)Ordered By: Harish Luis on 07-15-2024 Urea nitrogen [Mass/Vol] 8 mg/dL 4-19 [facility] Sodium levelOrdered By: Harish Luis on 07-15-2024 Sodium [Moles/Vol] 143 mmol/L 133-145 [facility] TSH DL <= 0.005 mIU/L QnOrde red By: Harish Luis on 07-15-2024 TSH Qn 0.847 uIU/mL 0.300-4.20 0 [facility] Thyroid Stim Hormone (TSH)on 07-15-2024 TSH 0.847 uIU/mL Normal 0.300-4.20 0 [facility] Comment on above: Performed By: #### L 500.4100, L100.0100, L501.9520, L506.1001, L500.4050 ####[facility] [address] [place], [address] Total proteinOrdered By: Harish Luis on 07-15-2024 Protein [Mass/Vol] 6.3 g/dL 5.9-8.4 [facility] Triglycerides measurementOrd ered By: Harish Luis on 07-15-2024 Triglyceride [Mass/Vol] 77 mg/dL Normal [facility] Comment on above: The drugs N-Acetylcy steine and Metamizole may falsely depress this assay. Normal range: <150 mg/dLBorderline High: 150-199 mg/dLHigh: 200-499 mg/dLVery High: >500 mg/dL Result Comment: The drugs N-Acetylcysteine and Metamizole may falselydepress this assay.Normal range: <150 mg/dLBorderline High: 150-199 mg/dLHigh: 200-499 mg/dLVery High: >500 mg/dL Performed By: #### L 500.4100, L100.0100, L501.9520, L506.1001, L500.4050 ####[facility] [address] [place], [address] Vitamin D,25 Hydroxyon 07-15 Vitamin D 25-OH 46.3 ng/mL Normal 30-100 [facility] Comment on above: Result Comment: Amalia min D StatusDeficiency: <20 ng/mL (50nmol/L)Insufficiency: 20-30 ng/mL (50-75 nmol/L)Sufficiency: 30-100 ng/mL (75-250 nmol/L)Toxicity: >100 ng/mL (>250 nmol/L) Performed By: #### L 500.4100, L100.0100, L501.9520, L506.1001, L500.4050 ####[facility] [address] [place], [address] White blood cell (WBC) count Ordered By: Harish Luis on 07-15-2024 WBC (Bld) [#/Vol] 6.5 10*3/uL 4.4-11.0 [facility] Emergency Department Summary on 06-04-2024 Emergency Department Summary Normal [facility] Shoulder min 2 Viewson 06-04 Shoulder min 2 Views Normal [facility] Urine Cultureon 04-03-2024 U[facility] Mary Alice albicans Ethel Count 80,000-100,000 Normal [facility] Comment on above: Performed By: #### M 100.2200 ####[facility] [address] [place], [place], [id number] Brain/Head without Contrasto n 03-31-2024 Brain/Head without Contrast Normal [facility] Urine cultureOrdered By: Harish Luis on 03-31-2024 Bacteria identified Cx Nom (U) Mary Ailce albicans Abnormal [facility] Influenza virus A and B and SARS-CoV-2 (COVID-19) and Respiratory syncytial virus RNAOrdered By: Harish Luis on 02-19-2024 SARS-CoV-2 (COVID-19) RNA ANTIONE+probe Ql (Unsp spec) [facility] M100.678on 02-19-2024 M100.678 Pending SARS-CoV-2 (COVID 19) Negative INFLUENZA A Negative INFLUENZA B Negative RSV PCR Negative Normal [facility] Comment on above: Performed By: #### M 100.678 ####[facility] [address] [place], [place], [id number] Absolute lymphocyte countOrd ered By: Tony Haque on 07-30-2023 Lymphocytes Auto (Unsp spec) [#/Vol] 0.79 10*3/uL 0.83-4.51 [facility] Automated lymphocyte count a s percentage of total leukocytesOrdered By: Tony Haque on 07-30-2023 Lymphocytes/100 WBC Auto (Unsp spec) 8.8 % 19-41 [facility] Base excessOrdered By: Guilherme Collins on 07-30-2023 Base excess Calc (BldV) [Moles/Vol] -2 mmol/L -1.0-3.5 [facility] Basophil percentageOrdered B y: Tony Haque on 07-30-2023 Basophil percentage 0 SEEN /hpf 0-5 [facility] Ammonia (P) [Moles/Vol] 27.0 umol/L 11-32 [facility] Basophils/100 WBC (Bld) 0.3 % 0-1 [facility] Chloride [Moles/Vol] 108 mmol/L 98-107 [facility] Eosinophils/100 WBC (Bld) 0.2 % 0-5 [facility] Glucose [Mass/Vol] 110 mg/dL 74-106 [facility] Comment on above: Fasting Glucose resu lt from 100 to 125 mg/dL suggests IMPAIRED HOMEOSTASIS per A.D.A. criteria. Hemoglobin (Bld) [Mass/Vol] 10.9 g/dL 12.0-15.0 [facility] Lactate [Moles/Vol] 3.4 mmol/L 0.4-2.0 [facility] Comment on above: Critical Result(s) C alled at: 14:41:53 07/30/2023 by: Ramiro Chamberlain to Sachin SHELBY (ER). Results read back by same. Monocytes/100 WBC (Bld) 8.2 % 0-10 [facility] Neutrophils (Bld) [#/Vol] 7.4 10*3/uL 2.0-7.7 [facility] Neutrophils/100 WBC (Bld) 81.8 % 47-70 [facility] Potassium [Moles/Vol] 3.4 mmol/L 3.5-5.1 [facility] Sodium [Moles/Vol] 139 mmol/L 136-145 [facility] WBC (Bld) [#/Vol] 9.0 10*3/uL 4.4-11.0 [facility] Bilirubin Test strip Ql (U)O rdered By: Tony Haque on 07-30-2023 Bilirubin Ql (U) 1 mg/dL Negative [facility] Comment on above: COLOR OF URINE MAY A FFECT DIPSTICK RESULTS. Blood manual differential co mment interpretation (narrative result)Ordered By: Tony Haque on 07-30-2023 Manual differential comment [place] (Bld) [Interp] See comment [facility] Comment on above: BANDS NOTED CO2 (BldV) [Moles/Vol]Ordere d By: Guilherme Collins on 07-30-2023 CO2 [Moles/Vol] 23 mmol/L 23-33 [facility] Determination of erythrocyte mean corpuscular volume (MCV)Ordered By: Tony Haque on 07-30-2023 MCV (RBC) [Entitic vol] 96.8 fL 81-99 [facility] Erythrocyte distribution wid th ratioOrdered By: Tony Haque on 07-30-2023 Erythrocyte distribution width (RBC) [Ratio] 13.7 % 11.6-14.6 [facility] Erythrocyte distribution wid th standard deviationOrdered By: Tony Haque on 07-30-2023 Erythrocyte distribution width (RBC) [Entitic vol] 48.8 fL 35.1-43.9 [facility] Hematocrit Auto (Bld) [Volum e fraction]Ordered By: Tony Haque on 07-30-2023 Hematocrit (Bld) [Volume fraction] 33.8 % 37-47 [facility] Immature granulocytes/100 WB C Auto (Bld)Ordered By: Tony Haque on 07-30-2023 Immature granulocytes/100 WBC (Bld) 0.700 % 0.0-0.9 [facility] Comment on above: IG% - Immature Granu locytes (promyelocytes, myelocytes and metamyelocytes) > 1% indicates that a LEFT SHIFT is Present. Ketones Test strip Ql (U)Ord ered By: Tony Haque on 07-30-2023 Ketones Ql (U) 5 mg/dl Negative [facility] Laboratory - Chemistry and C hemistry - challengeOrdered By: Anastasia Khan on 07-30-2023 Magnesium [Mass/Vol] 1.7 mg/dL 1.6-2.6 [facility] Natriuretic peptide B (Bld) [Mass/Vol] 88.3 pg/mL 0-100 [facility] Laboratory - Chemistry and C hemistry - challengeOrdered By: Guilherme Collins on 07-30-2023 HCO3 (Bld) [Moles/Vol] 22 mmol/L 22-26 [facility] Laboratory - Chemistry and C hemistry - challengeOrdered By: Tony Haque on 07-30-2023 CO2 [Moles/Vol] 22.0 mmol/L 21.0-32.0 [facility] Urea nitrogen/Creatinine [Mass ratio] 12.1 mg/mg 10-20 [facility] Laboratory - Drug toxicology Ordered By: Tony Haque on 07-30-2023 Amphetamines Ql (U) Negative <1000 ng/mL [facility] Benzodiazepines Ql (U) Positive < 200 ng/mL [facility] Cannabinoids Screen Ql (U) Negative < 50 ng/mL [facility] Cocaine Ql (U) Negative < 300 ng/mL [facility] Opiates Ql (U) Negative < 300 ng/mL [facility] Laboratory - Hematology and Cell countsOrdered By: Tony Haque on 07-30-2023 MCH (RBC) [Entitic mass] 31.2 pg 27.0-32.0 [facility] MCHC (RBC) [Mass/Vol] 32.2 g/dL 32-36 [facility] Nucleated RBC/100 WBC (Bld) [Ratio] 0 % 0-5 [facility] Platelet mean volume (Bld) [Entitic vol] 10.6 fL 6.2-12.0 [facility] Platelets (Bld) [#/Vol] 317 10*3/uL 150-450 [facility] Laboratory - Microbiology an d Antimicrobial susceptibilityOrdered By: Tony Haque on 07-30-2023 SARS-CoV-2 (COVID-19) RNA ANTIONE+probe Ql (Unsp spec) [facility] Mucus LM Ql (Urine sed)Order ed By: Tony Haque on 07-30-2023 Mucus Ql (Urine sed) 0 SEEN /hpf [facility] Nitrite Test strip Ql (U)Ord ered By: Tony Haque on 07-30-2023 Nitrite Ql (U) Negative Negative [facility] No Panel InformationOrdered By: Tony Haque on 07-30-2023 MDMA (Ecstasy) Screen Negative < 500 ng/mL [facility] Urine Barbiturates Screen Negative < 200 ng/mL [facility] Urine Drug Screen Comment [facility] Comment on above: CONFIRMATORY TESTING FOR [...] Urine Methadone Screen Negative < 300 ng/mL [facility] Urine RBC 0 SEEN /hpf 0-5 [facility] D-Dimer Quantitative (PE/DVT) 3.19 FEU/ug/m 0.27-0.49 [facility] Comment on above: D-Dimer ELEVATED (>0 .49): Additional studies and clinicalassessments are indicated to conclude diagnosis of:Deep Vein Thrombosis (DVT) or Pulmonary Embolism (PE) Estimated Creatinine Clearance Calc 22.77 ml/min [facility] Estimated GFR (MDRD) Amer 37 mL/min >60 [facility] Comment on above: GFR Calc Estimated GFR (MDRD) Non-Af Amer 31 mL/min >60 [facility] Comment on above: Non- GFR Calc Troponin I High Sensitivity 6 pg/mL 3.0-54.0 [facility] Comment on above: Please Note: New Nu t Units and Gender Specific Reference Ranges. For more information see Policy Stat Procedure [place] High Sensitivity Troponin (TNIH) and attachments. No Panel InformationOrdered By: Guilherme Collins on 07-30-2023 Blood Gas Oxygen Percent 21.0 [facility] Blood Gas Sample Site Not entered [facility] Blood Gas Specimen Type [place] [facility] Oxygen Delivery Device Not entered [facility] PCO2 venousOrdered By: Guilherme Collins on 07-30-2023 CO2 (BldV) [Partial pressure] 29.8 mm[Hg] 41-51 [facility] PO2 venousOrdered By: Guilherme reyes on 07-30-2023 Oxygen (BldV) [Partial pressure] 73 mm[Hg] 25-40 [facility] Protein Test strip Ql (U)Ord ered By: Tony Haque on 07-30-2023 Protein Ql (U) 15 mg/dl Negative [facility] RBC Auto (Bld) [#/Vol]Ordere d By: Tony Haque on 07-30-2023 RBC (Bld) [#/Vol] 3.49 10*6/uL 4.2-5.4 [facility] Review by pathologistOrdered By: Tony Haque on 07-30-2023 Pathologist review [place] (Unsp spec) [Interp] May foll [facility] Serum or plasma calcium rosangela urement (mass/volume)Ordered By: Tony Haque on 07-30-2023 Calcium [Mass/Vol] 8.6 mg/dL 8.5-10.1 [facility] Serum or plasma creatinine m easurement (mass/volume)Ordered By: Tony Haque on 07-30-2023 Creatinine [Mass/Vol] 1.74 mg/dL 0.55-1.02 [facility] Comment on above: The validity of the calculated GFR & GFRAA in patients over 70 years has not been determined. Clinical correlation is essential. Serum or plasma urea nitroge n measurement (mass/volume)Ordered By: Tony Haque on 07-30-2023 Urea nitrogen [Mass/Vol] 21 mg/dL 7-18 [facility] Smudge cell detectionOrdered By: Tony Haque on 07-30-2023 Smudge cells LM Ql (Bld) 1+ [facility] Squamous epithelial cells de tection in urine sediment by light microscopyOrdered By: Tony Haque on 07-30-2023 Epithelial cells.squamous LM Ql (Urine sed) 0 SEEN /hpf 5-10 [facility] Thin prep Papanicolaou smear with manual screeningOrdered By: Tony Haque on 07-30-2023 Thin prep Papanicolaou smear with manual screening 9 5-15 [facility] Urine blood detectionOrdered By: Tony Haque on 07-30-2023 RBC Ql (U) Negative Negative [facility] Urine clarityOrdered By: Marixa Haque on 07-30-2023 Clarity (U) Clear Clear [facility] Urine color determinationOrd ered By: Tony Haque on 07-30-2023 Color (U) Yellow Yellow [facility] Urine glucose detectionOrder ed By: Tony Haque on 07-30-2023 Glucose Ql (U) Normal mg/dl Normal [facility] Urine leukocyte esterase det ection by dipstickOrdered By: Tony Haque on 07-30-2023 Leukocyte esterase Test strip Ql (U) 25 /ul Negative [facility] Urine pHOrdered By: Tony mariscal on 07-30-2023 pH (U) 5.0 [pH] 5.0 - 8.0 [facility] Urine phencyclidine (PCP) de tectionOrdered By: Tony Haque on 07-30-2023 Phencyclidine Ql (U) Negative < 25 ng/mL [facility] Urine sediment bacteria coun t by microscopy (number/high power field)Ordered By: Tony Haque on 07-30-2023 Bacteria LM.HPF (Urine sed) [#/Area] 0 /[HPF] None Seen [facility] Urine specific gravity measu rementOrdered By: Tony Haque on 07-30-2023 Specific gravity (U) [Rel density] 1.020 1.002-1.03 0 [facility] Urine urobilinogen measureme ntOrdered By: Tony Haque on 07-30-2023 Urobilinogen Ql (U) 1 mg/dl Normal [facility] Venous blood pH measurementO rdered By: Guilherme Collins on 07-30-2023 pH (BldV) 7.47 [pH] 7.32-7.42 [facility] Vital signsOrdered By: Guilherme Collins on 07-30-2023 Oxygen saturation in Blood 96 % 50-70 [facility] Absolute lymphocyte countOrd ered By: Harish Luis on 07-11-2023 Lymphocytes Auto (Unsp spec) [#/Vol] 1.63 10*3/uL 0.83-4.51 [facility] Automated lymphocyte count a s percentage of total leukocytesOrdered By: Harish Luis on 07-11-2023 Lymphocytes/100 WBC Auto (Unsp spec) 26.4 % 19-41 [facility] Basophil percentageOrdered B y: Harish Luis on 07-11-2023 Basophils/100 WBC (Bld) 1.0 % 0-1 [facility] Bilirubin [Mass/Vol] 0.40 mg/dL 0.20-1.00 [facility] Comment on above: For patients on eltr ombopag therapy, use of Dimension [place] TBIL is not recommended. Chloride [Moles/Vol] 109 mmol/L 98-107 [facility] Cholesterol [Mass/Vol] 314 mg/dL <200 [facility] Comment on above: <200 mg/dL Desirable 200-240 mg/dL Borderline >240 mg/dL High Risk Eosinophils/100 WBC (Bld) 2.3 % 0-5 [facility] Glucose [Mass/Vol] 114 mg/dL 74-106 [facility] Comment on above: Fasting Glucose resu lt from 100 to 125 mg/dL suggests IMPAIRED HOMEOSTASIS per A.D.A. criteria. Hemoglobin (Bld) [Mass/Vol] 12.9 g/dL 12.0-15.0 [facility] Monocytes/100 WBC (Bld) 6.5 % 0-10 [facility] Neutrophils (Bld) [#/Vol] 3.9 10*3/uL 2.0-7.7 [facility] Neutrophils/100 WBC (Bld) 63.3 % 47-70 [facility] Potassium [Moles/Vol] 3.6 mmol/L 3.5-5.1 [facility] Protein [Mass/Vol] 7.2 g/dL 6.4-8.2 [facility] Sodium [Moles/Vol] 141 mmol/L 136-145 [facility] Triglyceride [Mass/Vol] 135 mg/dL <199 [facility] Comment on above: The drugs N-Acetylcy steine and Metamizole may falsely depress this assay.Serum Triglycerides Reference Interval Normal <150 mg/dL Borderline high 150 - 199 mg/dL High 200 - 499 mg/dL Very High > or = 500 mg/dL WBC (Bld) [#/Vol] 6.2 10*3/uL 4.4-11.0 [facility] Determination of erythrocyte mean corpuscular volume (MCV)Ordered By: Harish Luis on 07-11-2023 MCV (RBC) [Entitic vol] 97.6 fL 81-99 [facility] Erythrocyte distribution wid th ratioOrdered By: Harish Luis on 07-11-2023 Erythrocyte distribution width (RBC) [Ratio] 14.1 % 11.6-14.6 [facility] Erythrocyte distribution wid th standard deviationOrdered By: Harish Luis on 07-11-2023 Erythrocyte distribution width (RBC) [Entitic vol] 51.5 fL 35.1-43.9 [facility] Hematocrit Auto (Bld) [Volum e fraction]Ordered By: Harish Ramírezok on 07-11-2023 Hematocrit (Bld) [Volume fraction] 40.7 % 37-47 [facility] Immature granulocytes/100 WB C Auto (Bld)Ordered By: Harish Luis on 07-11-2023 Immature granulocytes/100 WBC (Bld) 0.500 % 0.0-0.9 [facility] Comment on above: IG% - Immature Granu locytes (promyelocytes, myelocytes and metamyelocytes) > 1% indicates that a LEFT SHIFT is Present. Laboratory - Chemistry and C hemistry - challengeOrdered By: Harish Luis on 07-11-2023 Albumin/Globulin [Mass ratio] 0.8 {ratio} 0.9-2.4 [facility] ALP [Catalytic activity/Vol] 103 U/L 45-117 [facility] ALT [Catalytic activity/Vol] 26 U/L 13-56 [facility] Cholesterol in HDL [Mass/Vol] 79 mg/dL >40 [facility] Comment on above: The drugs N-Acetylcy steine and Metamizole may falsely depress this assay. Reference Range HDL <40 mg/dL Low HDL Cholesterol HDL >or= 60 mg/dL High HDL Cholesterol Cholesterol in LDL [Mass/Vol] 208 mg/dL 0-130 [facility] CO2 [Moles/Vol] 26.0 mmol/L 21.0-32.0 [facility] Globulin (S) [Mass/Vol] 4.1 g/dL 2.2-4.2 [facility] Urea nitrogen/Creatinine [Mass ratio] 8.4 mg/mg 10-20 [facility] Laboratory - Hematology and Cell countsOrdered By: Harish Luis on 07-11-2023 MCH (RBC) [Entitic mass] 30.9 pg 27.0-32.0 [facility] MCHC (RBC) [Mass/Vol] 31.7 g/dL 32-36 [facility] Nucleated RBC/100 WBC (Bld) [Ratio] 0 % 0-5 [facility] Platelet mean volume (Bld) [Entitic vol] 9.7 fL 6.2-12.0 [facility] Platelets (Bld) [#/Vol] 433 10*3/uL 150-450 [facility] No Panel InformationOrdered By: Harish Luis on 07-11-2023 Estimated GFR (MDRD) Amer 74 mL/min >60 [facility] Comment on above: GFR Calc Estimated GFR (MDRD) Non-Af Amer 61 mL/min >60 [facility] Comment on above: Non- GFR Calc Vitamin D 25-Hydroxy 24.5 ng/mL [facility] Comment on above: Vitamin D 25(OH) Sta tus Range Deficiency <20 ng/mL (50nmol/L) Insufficiency 20 - 30 ng/mL (50 - 75 nmol/L) Sufficiency 30 - 100 ng/mL (75 - 250 nmol/L) Toxicity >100 ng/mL (>250 nmol/L) VLDL Cholesterol 27 mg/dL 5-40 [facility] RBC Auto (Bld) [#/Vol]Ordere d By: Harish Luis on 07-11-2023 RBC (Bld) [#/Vol] 4.17 10*6/uL 4.2-5.4 [facility] Serum or plasma calcium rosangela urement (mass/volume)Ordered By: Harish Luis on 07-11-2023 Calcium [Mass/Vol] 8.8 mg/dL 8.5-10.1 [facility] Serum or plasma creatinine m easurement (mass/volume)Ordered By: Harish Luis on 07-11-2023 Creatinine [Mass/Vol] 0.96 mg/dL 0.55-1.02 [facility] Comment on above: The validity of the calculated GFR & GFRAA in patients over 70 years has not been determined. Clinical correlation is essential. Serum or plasma thyroid stim ulating hormone (TSH) measurement (units/volume)Ordered By: Harish Luis on 07-11-2023 TSH Qn 0.92 uIU/mL 0.358-3.74 [facility] Serum or plasma urea nitroge n measurement (mass/volume)Ordered By: Harish Luis on 07-11-2023 Urea nitrogen [Mass/Vol] 8 mg/dL 7-18 [facility] Thin prep Papanicolaou smear with manual screeningOrdered By: Harish Luis on 07-11-2023 Thin prep Papanicolaou smear with manual screening 3.1 g/dL 3.2-5.0 [facility] Thin prep Papanicolaou smear with manual screening 18 U/L 15-37 [facility] Thin prep Papanicolaou smear with manual screening 6 5-15 [facility] Culture, urineOrdered By: Levar Luis on 06-27-2023 Bacteria identified Cx Nom (U) Staphylococcus simulans [facility] Absolute lymphocyte countOrd ered By: Harish Luis on 01-01-2023 Lymphocytes Auto (Unsp spec) [#/Vol] 1.14 10*3/uL 0.83-4.51 [facility] Basophil percentageOrdered B y: Harish Luis on 01-01-2023 Basophils/100 WBC (Bld) 0.8 % 0-1 [facility] Bilirubin [Mass/Vol] 0.40 mg/dL 0.20-1.00 [facility] Comment on above: For patients on eltr ombopag therapy, use of Dimension [place] TBIL is not recommended. Chloride [Moles/Vol] 113 mmol/L 98-107 [facility] Eosinophils/100 WBC (Bld) 1.7 % 0-5 [facility] Glucose [Mass/Vol] 124 mg/dL 74-106 [facility] Comment on above: Fasting Glucose resu lt from 100 to 125 mg/dL suggests IMPAIRED HOMEOSTASIS per A.D.A. criteria. Neutrophils (Bld) [#/Vol] 4.5 10*3/uL 2.0-7.7 [facility] Neutrophils/100 WBC (Bld) 72.0 % 47-70 [facility] Potassium [Moles/Vol] 3.3 mmol/L 3.5-5.1 [facility] Protein [Mass/Vol] 6.4 g/dL 6.4-8.2 [facility] Sodium [Moles/Vol] 144 mmol/L 136-145 [facility] WBC (Bld) [#/Vol] 6.3 10*3/uL 4.4-11.0 [facility] Blood erythrocytes count (nu mber/volume)Ordered By: Harish Luis on 10-16-2023 RBC (Bld) [#/Vol] 3.99 10*6/uL 4.2-5.4 [facility] Blood hemoglobin measurement (mass/volume)Ordered By: Harish Luis on 01-01-2023 Hemoglobin (Bld) [Mass/Vol] 12.7 g/dL 12.0-15.0 [facility] Blood lymphocytes/100 leukoc ytesOrdered By: Harish Luis on 01-01-2023 Lymphocytes/100 WBC (Bld) 18.1 % 19-41 [facility] Blood monocytes/100 leukocyt esOrdered By: Harish Luis on 01-01-2023 Monocytes/100 WBC (Bld) 7.2 % 0-10 [facility] Blood platelet mean volumeOr dered By: Harish Luis on 01-01-2023 Platelet mean volume (Bld) [Entitic vol] 10.2 fL 6.2-12.0 [facility] Determination of erythrocyte mean corpuscular volume (MCV)Ordered By: Harish Luis on 01-01-2023 MCV (RBC) [Entitic vol] 96.7 fL 81-99 [facility] Hematocrit Auto (Bld) [Volum e fraction][facility] Hematocrit (Bld) [Volume fraction] 38.6 % 37-47 [facility] Laboratory - Chemistry and C hemistry - challengeOrdered By: Harish Luis on 01-01-2023 ALP [Catalytic activity/Vol] 106 U/L 45-117 [facility] ALT [Catalytic activity/Vol] 14 U/L 13-56 [facility] CO2 [Moles/Vol] 22.0 mmol/L 21.0-32.0 [facility] Globulin (S) [Mass/Vol] 3.6 g/dL 2.2-4.2 [facility] Urea nitrogen/Creatinine [Mass ratio] 8.0 mg/mg 10-20 [facility] Laboratory - Hematology and Cell countsOrdered By: Harish Luis on 01-01-2023 Erythrocyte distribution width (RBC) [Entitic vol] 49.0 fL 35.1-43.9 [facility] Erythrocyte distribution width (RBC) [Ratio] 13.7 % 11.6-14.6 [facility] Immature granulocytes/100 WBC (Bld) 0.200 % 0.0-0.9 [facility] Comment on above: IG% - Immature Granu locytes (promyelocytes, myelocytes and metamyelocytes) > 1% indicates that a LEFT SHIFT is Present. MCH (RBC) [Entitic mass] 31.8 pg 27.0-32.0 [facility] Nucleated RBC/100 WBC (Bld) [Ratio] 0 % 0-5 [facility] MCHC Auto (RBC) [Mass/Vol]Or dered By: Harish Luis on 01-01-2023 MCHC (RBC) [Mass/Vol] 32.9 g/dL 32-36 [facility] No Panel InformationOrdered By: Harish Luis on 01-01-2023 Estimated GFR (MDRD) Amer 61 mL/min >60 [facility] Comment on above: GFR Calc Estimated GFR (MDRD) Non-Af Amer 51 mL/min >60 [facility] Comment on above: Non- GFR Calc Thyroid Stimulating Hormone (TSH) 0.17 uIU/mL 0.358-3.74 [facility] Vitamin D 25-Hydroxy 39.2 ng/mL [facility] Comment on above: Vitamin D 25(OH) Sta tus Range Deficiency <20 ng/mL (50nmol/L) Insufficiency 20 - 30 ng/mL (50 - 75 nmol/L) Sufficiency 30 - 100 ng/mL (75 - 250 nmol/L) Toxicity >100 ng/mL (>250 nmol/L) Platelets bldOrdered By: Harish Luis on 01-01-2023 Platelets (Bld) [#/Vol] 345 10*3/uL 150-450 [facility] Serum or plasma albumin rosangela urement (mass/volume)Ordered By: Harish Luis on 01-01-2023 Albumin [Mass/Vol] 2.8 g/dL 3.2-5.0 [facility] Serum or plasma albumin/glob ulin mass ratioOrdered By: Harish Luis on 01-01-2023 Albumin/Globulin [Mass ratio] 0.8 {ratio} 0.9-2.4 [facility] Serum or plasma calcium rosangela urement (mass/volume)Ordered By: Harish Luis on 10-16-2023 Calcium [Mass/Vol] 8.5 mg/dL 8.5-10.1 [facility] Serum or plasma creatinine m easurement (mass/volume)Ordered By: Harish Luis on 01-01-2023 Creatinine [Mass/Vol] 1.12 mg/dL 0.55-1.02 [facility] Comment on above: The validity of the calculated GFR & GFRAA in patients over 70 years has not been determined. Clinical correlation is essential. Serum or plasma urea nitroge n measurement (mass/volume)Ordered By: Harish Luis on 01-01-2023 Urea nitrogen [Mass/Vol] 9 mg/dL 7-18 [facility] Thin prep Papanicolaou smear with manual screeningOrdered By: Harish Luis on 01-01-2023 Thin prep Papanicolaou smear with manual screening 12 U/L 15-37 [facility] Thin prep Papanicolaou smear with manual screening 9 5-15 [facility] Basophil percentageOrdered B y: Jesse Camejo on 11-04-2022 Chloride [Moles/Vol] 117 mmol/L 98-107 [facility] Glucose [Mass/Vol] 105 mg/dL 74-106 [facility] Comment on above: Fasting Glucose resu lt from 100 to 125 mg/dL suggests IMPAIRED HOMEOSTASIS per A.D.A. criteria. Potassium [Moles/Vol] 3.4 mmol/L 3.5-5.1 [facility] Sodium [Moles/Vol] 145 mmol/L 136-145 [facility] Laboratory - Chemistry and C hemistry - challengeOrdered By: Jesse Camejo on 11-04-2022 CO2 [Moles/Vol] 24.0 mmol/L 21.0-32.0 [facility] Urea nitrogen/Creatinine [Mass ratio] 6.3 mg/mg 10- [facility] No Panel InformationOrdered By: Jesse Camejo on 11-04-2022 Estimated Creatinine Clearance Calc 39.02 ml/min [facility] Estimated GFR (MDRD) Amer 119 mL/min >60 [facility] Comment on above: GFR Calc Estimated GFR (MDRD) Non-Af Amer 98 mL/min >60 [facility] Comment on above: Non- GFR Calc Serum or plasma calcium rosangela urement (mass/volume)Ordered By: Jesse Camejo on 11-04-2022 Calcium [Mass/Vol] 8.3 mg/dL 8.5-10.1 [facility] Serum or plasma creatinine m easurement (mass/volume)Ordered By: Jesse Camejo on 11-04-2022 Creatinine [Mass/Vol] 0.63 mg/dL 0.55-1.02 [facility] Comment on above: The validity of the calculated GFR & GFRAA in patients over 70 years has not been determined. Clinical correlation is essential. Serum or plasma urea nitroge n measurement (mass/volume)Ordered By: Jesse Camjeo on 11-04-2022 Urea nitrogen [Mass/Vol] 4 mg/dL -18 [facility] Thin prep Papanicolaou smear with manual screeningOrdered By: Jesse Camejo on 11-04-2022 Thin prep Papanicolaou smear with manual screening 4 5-15 [facility] Absolute lymphocyte countOrd ered By: Jesse Camejo on 11-03-2022 Lymphocytes Auto (Unsp spec) [#/Vol] 1.21 10*3/uL 0.83-4.51 [facility] Basophil percentageOrdered B y: Jesse Camejo on 11-03-2022 Basophils/100 WBC (Bld) 1.3 % 0-1 [facility] Eosinophils/100 WBC (Bld) 4.8 % 0-5 [facility] Neutrophils (Bld) [#/Vol] 1.9 10*3/uL 2.0-7.7 [facility] Neutrophils/100 WBC (Bld) 50.2 % 47-70 [facility] WBC (Bld) [#/Vol] 3.8 10*3/uL 4.4-11.0 [facility] Blood erythrocytes count (nu mber/volume)Ordered By: Jesse Camejo on 11-03-2022 RBC (Bld) [#/Vol] 3.66 10*6/uL 4.2-5.4 [facility] Blood hemoglobin measurement (mass/volume)Ordered By: Jesse Camejo on 11-03-2022 Hemoglobin (Bld) [Mass/Vol] 11.5 g/dL 12.0-15.0 [facility] Blood lymphocytes/100 leukoc ytesOrdered By: Jesse Camejo on 11-03-2022 Lymphocytes/100 WBC (Bld) 32.0 % 19-41 [facility] Blood monocytes/100 leukocyt esOrdered By: Jesse Camejo on 11-03-2022 Monocytes/100 WBC (Bld) 11.4 % 0-10 [facility] Blood platelet mean volumeOr dered By: Jesse Camejo on 11-03-2022 Platelet mean volume (Bld) [Entitic vol] 9.4 fL 6.2-12.0 [facility] Determination of erythrocyte mean corpuscular volume (MCV)Ordered By: Jesse Camejo on 11-03-2022 MCV (RBC) [Entitic vol] 98.6 fL 81-99 [facility] Hematocrit Auto (Bld) [Volum e fraction]Ordered By: Jesse Camejo on 11-03-2022 Hematocrit (Bld) [Volume fraction] 36.1 % 37-47 [facility] INR in Blood by Coagulation assayOrdered By: Ken Johnston on 11-03-2022 INR Coag (Bld) [Relative time] 1.1 {INR} [facility] Laboratory - CoagulationOrde red By: Ken Johnston on 11-03-2022 aPTT Coag (Bld) [Time] 41.4 s 24.1-36.2 [facility] PT Coag (PPP) [Time] 14.7 s 11.7-14.9 [facility] Laboratory - Hematology and Cell countsOrdered By: Jesse Camejo on 11-03-2022 Erythrocyte distribution width (RBC) [Entitic vol] 50.4 fL 35.1-43.9 [facility] Erythrocyte distribution width (RBC) [Ratio] 13.9 % 11.6-14.6 [facility] Immature granulocytes/100 WBC (Bld) 0.300 % 0.0-0.9 [facility] Comment on above: IG% - Immature Granu locytes (promyelocytes, myelocytes and metamyelocytes) > 1% indicates that a LEFT SHIFT is Present. MCH (RBC) [Entitic mass] 31.4 pg 27.0-32.0 [facility] Nucleated RBC/100 WBC (Bld) [Ratio] 0 % 0-5 [facility] MCHC Auto (RBC) [Mass/Vol]Or dered By: Jesse Camejo on 11-03-2022 MCHC (RBC) [Mass/Vol] 31.9 g/dL 32-36 [facility] Platelets bldOrdered By: Eagle Camejo on 11-03-2022 Platelets (Bld) [#/Vol] 368 10*3/uL 150-450 [facility] Basophil percentageOrdered B y: Helena Ann on 11-02-2022 Basophil percentage 2.7 mg/dL 2.5-4.9 [facility] Laboratory - Chemistry and C hemistry - challengeOrdered By: Helena Ann on 11-02-2022 Magnesium [Mass/Vol] 2.2 mg/dL 1.6-2.6 [facility] Absolute lymphocyte countOrd ered By: Armando Miranda on 11-01-2022 Lymphocytes Auto (Unsp spec) [#/Vol] 1.37 10*3/uL 0.83-4.51 [facility] Assessment of wrist artery p atency prior to arterial punctureOrdered By: Armando Miranda on 11-01-2022 Arterial patency Wrist artery --pre arterial puncture Positive [facility] Bacterial cerebrospinal flui d cultureOrdered By: Helena Ann on 11-01-2022 Bacteria identified Cx Nom (CSF) No growth in 72 hours. [facility] Base excessOrdered By: Garrett Miranda on 11-01-2022 Base excess Calc (BldV) [Moles/Vol] -3 mmol/L -2-2 [facility] Basophil percentageOrdered B y: Armando Miranda on 11-01-2022 Basophil percentage 23.0 mmol/L 22-26 [facility] Basophils/100 WBC (Bld) 96 % 95-99 [facility] Basophil percentage 0 SEEN /hpf 0-5 [facility] Lactate [Moles/Vol] 0.9 mmol/L 0.4-2.0 [facility] Basophils/100 WBC (Bld) 1.9 % 0-1 [facility] Bilirubin [Mass/Vol] 0.40 mg/dL 0.20-1.00 [facility] Comment on above: For patients on eltr ombopag therapy, use of Dimension [place] TBIL is not recommended. Chloride [Moles/Vol] 114 mmol/L 98-107 [facility] Eosinophils/100 WBC (Bld) 5.0 % 0-5 [facility] Glucose [Mass/Vol] 100 mg/dL 74-106 [facility] Comment on above: Fasting Glucose resu lt from 100 to 125 mg/dL suggests IMPAIRED HOMEOSTASIS per A.D.A. criteria. Neutrophils (Bld) [#/Vol] 1.6 10*3/uL 2.0-7.7 [facility] Neutrophils/100 WBC (Bld) 44.7 % 47-70 [facility] Potassium [Moles/Vol] 3.7 mmol/L 3.5-5.1 [facility] Protein [Mass/Vol] 6.9 g/dL 6.4-8.2 [facility] Sodium [Moles/Vol] 144 mmol/L 136-145 [facility] WBC (Bld) [#/Vol] 3.6 10*3/uL 4.4-11.0 [facility] Basophil percentageOrdered B y: Helena Ann on 11-01-2022 Ammonia (P) [Moles/Vol] 11.0 umol/L 11-32 [facility] Bilirubin Test strip Ql (U)O rdered By: Armando Miranda on 11-01-2022 Bilirubin Ql (U) Negative Negative [facility] Blood erythrocytes count (nu mber/volume)Ordered By: Armando Miranda on 11-01-2022 RBC (Bld) [#/Vol] 3.87 10*6/uL 4.2-5.4 [facility] Blood hemoglobin measurement (mass/volume)Ordered By: Armando Miranda on 11-01-2022 Hemoglobin (Bld) [Mass/Vol] 12.2 g/dL 12.0-15.0 [facility] Blood lymphocytes/100 leukoc ytesOrdered By: Armando Miranda on 11-01-2022 Lymphocytes/100 WBC (Bld) 38.1 % 19-41 [facility] Blood monocytes/100 leukocyt esOrdered By: Armando Miranda on 11-01-2022 Monocytes/100 WBC (Bld) 10.0 % 0-10 [facility] Blood platelet mean volumeOr dered By: Armando Miranda on 11-01-2022 Platelet mean volume (Bld) [Entitic vol] 9.9 fL 6.2-12.0 [facility] CO2 (BldA) [Partial pressure ]Ordered By: Armando Miranda on 11-01-2022 CO2 (Bld) [Partial pressure] 41.6 mm[Hg] 35-45 [facility] Cerebrospinal fluid SARAH virus DNA detection by probe and target amplification methodOrdered By: Helena Ann on 11-01-2022 SARAH virus DNA ANTIONE+probe Ql (CSF) See comment [facility] Comment on above: Result: NegativeNo J CV DNA detectedThis test was developed and its performance characteristicsdetermined by [employer]. It has not been cleared or approvedby the Food and Drug Administration. The FDA hasdetermined that such clearance or approval is notnecessary.Performed at: [address] [id number] Director: Kody Garcia MD, Phone: [phone] Cerebrospinal fluid appearan ce descriptionOrdered By: Helena Ann on 11-01-2022 Appearance (CSF) CLEAR Clear [facility] Cerebrospinal fluid cell cou ntOrdered By: Helena Ann on 11-01-2022 Cell count panel (CSF) TNP [facility] Comment on above: Test not performed Cerebrospinal fluid color id entificationOrdered By: Helena Ann on 11-01-2022 Color (CSF) COLORLESS Colorless [facility] Cerebrospinal fluid glucose measurement (mass/volume)Ordered By: Helena Ann on 11-01-2022 Glucose (CSF) [Mass/Vol] 62 mg/dL 40-75 [facility] Cerebrospinal fluid white bl ood cell countOrdered By: Helena Ann on 11-01-2022 WBC (CSF) [#/Vol] 0 /mm-3 0-5 [facility] Cytology report of Body flui d Cyto stainOrdered By: Helena Ann on 11-01-2022 Cytology report Cyto stain Doc (Body fld) SEE PATHOLOGY REPORT [facility] Comment on above: Specimen submitted t o Anatomical Pathology Department for testing. Determination of erythrocyte mean corpuscular volume (MCV)Ordered By: Armando Miranda on 11-01-2022 MCV (RBC) [Entitic vol] 99.5 fL 81-99 [facility] Gram stain for investigation of transfusion reactionOrdered By: Helena Ann on 11-01-2022 Microscopic observation Gram stain Nom (Unsp spec) [facility] Hematocrit Auto (Bld) [Volum e fraction]Ordered By: Armando Miranda on 11-01-2022 Hematocrit (Bld) [Volume fraction] 38.5 % 37-47 [facility] Herpes simplex virus 1+2 DNA detection by probe and target amplification methodOrdered By: Helena Ann on 11-01-2022 HSV 1+2 DNA ANTIONE+probe Ql (Unsp spec) Negative Negative [facility] Influenza virus A and B and SARS-CoV-2 (COVID-19) Ag panel - Upper respiratory specimOrdered By: Armando Miranda on 11-01-2022 SARS-CoV-2 & FLU Antigen (Rapid) Influenzae B [facility] SARS-CoV-2 (COVID-19) RNA ANTIONE+probe Ql (Resp) [facility] Ketones Test strip Ql (U)Ord ered By: Armando Miranda on 11-01-2022 Ketones Ql (U) Negative Negative [facility] Laboratory - Chemistry and C hemistry - challengeOrdered By: Armando Miranda on 11-01-2022 ALP [Catalytic activity/Vol] 97 U/L 45-117 [facility] ALT [Catalytic activity/Vol] 30 U/L 13-56 [facility] CK [Catalytic activity/Vol] 211 U/L 26-192 [facility] CO2 [Moles/Vol] 25.0 mmol/L 21.0-32.0 [facility] Globulin (S) [Mass/Vol] 4.3 g/dL 2.2-4.2 [facility] Lipase [Catalytic activity/Vol] 21 U/L 13-75 [facility] Comment on above: Please note:LIPASE r evised reference range effective 22. New Lipase methodology. Expected to produce lower values than the previous assay method. NEW Reference Range: 13 - 75 U/L Urea nitrogen/Creatinine [Mass ratio] 11.4 mg/mg 10-20 [facility] Laboratory - Chemistry and C hemistry - challengeOrdered By: Helena Ann on 11-01-2022 Free T4 [Mass/Vol] 1.18 ng/dL 0.76-1.46 [facility] - Drug toxicology Ordered By: Armando Miranda on 11-01-2022 Amphetamines Ql (U) Negative <1000 ng/mL [facility] Benzodiazepines Ql (U) Negative < 200 ng/mL [facility] Cannabinoids Screen Ql (U) Negative < 50 ng/mL [facility] Cocaine Ql (U) Negative < 300 ng/mL [facility] Opiates Ql (U) Negative < 300 ng/mL [facility] Laboratory - Hematology and Cell countsOrdered By: Armando Miranda on 11-01-2022 Erythrocyte distribution width (RBC) [Entitic vol] 52.0 fL 35.1-43.9 [facility] Erythrocyte distribution width (RBC) [Ratio] 14.3 % 11.6-14.6 [facility] Immature granulocytes/100 WBC (Bld) 0.300 % 0.0-0.9 [facility] Comment on above: IG% - Immature Granu locytes (promyelocytes, myelocytes and metamyelocytes) > 1% indicates that a LEFT SHIFT is Present. MCH (RBC) [Entitic mass] 31.5 pg 27.0-32.0 [facility] Nucleated RBC/100 WBC (Bld) [Ratio] 0 % 0-5 [facility] Laboratory - Specimen inform ationOrdered By: Helena Ann on 11-01-2022 Tube number Nom (CSF) [ID] 3 [facility] MCHC Auto (RBC) [Mass/Vol]Or dered By: Armando Miranda on 11-01-2022 MCHC (RBC) [Mass/Vol] 31.7 g/dL 32-36 [facility] Mononuclear cells Auto (Body fld) [#/Vol]Ordered By: Helena Ann on 11-01-2022 Mononuclear cells (Body fld) [#/Vol] 0.000 10*3/uL [facility] Mucus LM Ql (Urine sed)Order ed By: Armando Miranda on 11-01-2022 Mucus Ql (Urine sed) 0 SEEN /hpf [facility] Nitrite Test strip Ql (U)Ord ered By: Armando Miranda on 11-01-2022 Nitrite Ql (U) Negative Negative [facility] No Panel InformationOrdered By: Helena Ann on 11-01-2022 Body Fluid Mononuclear WBCs (%) 0.0 % [facility] Body Fluid Polynuclear WBCs (#) 0.001 10^3/uL [facility] Body Fluid Polynuclear WBCs (%) 100.0 % [facility] CSF RBC 49 /mm-3 None seen [facility] CSF Total Protein 43.0 mg/dL 15.0-45.0 [facility] Herpes Simplex Virus II DNA (PCR) Negative Negative [facility] No Panel InformationOrdered By: Armando Miranda on 11-01-2022 Blood Gas Sample Site L Radial [facility] Blood Gas Specimen Type ART [facility] Blood Gas Total CO2 24 mmol/L [facility] Oxygen Delivery Device Room Air [facility] MDMA (Ecstasy) Screen Positive < 500 ng/mL [facility] Urine Barbiturates Screen Negative < 200 ng/mL [facility] Urine Drug Screen Comment [facility] Comment on above: CONFIRMATORY TESTING FOR [...] Urine Methadone Screen Negative < 300 ng/mL [facility] Estimated Creatinine Clearance Calc 45.70 ml/min [facility] Estimated GFR (MDRD) Amer 81 mL/min >60 [facility] Comment on above: GFR Calc Estimated GFR (MDRD) Non-Af Amer 67 mL/min >60 [facility] Comment on above: Non- GFR Calc Ethyl Alcohol Level < 3.0 mg/dL [facility] Comment on above: The serum:whole bloo d ethanol ratio is approximately 1.14and varies slightly with hematocrit. Medical Alcohol reference interval and critical value innon-tolerant individuals; 50 - 100 Impairment 100 Intoxication 100 - 250 Severe Poisoning 250 - 400 Deep/possible fatal coma Thyroid Stimulating Hormone (TSH) 0.09 uIU/mL 0.358-3.74 [facility] Troponin I High Sensitivity 4 pg/mL 3.0-54.0 [facility] Comment on above: Please Note: New Nu t Units and Gender Specific Reference Ranges. For more information see Policy Stat Procedure [place] High Sensitivity Troponin (TNIH) and attachments. Oxygen (BldA) [Partial press ure]Ordered By: Armando Miranda on 11-01-2022 Oxygen (Bld) [Partial pressure] 86 mmHG 75-100 [facility] Platelets bldOrdered By: Yudith Miranda on 11-01-2022 Platelets (Bld) [#/Vol] 399 10*3/uL 150-450 [facility] Protein Test strip Ql (U)Ord ered By: Armando Miranda on 11-01-2022 Protein Ql (U) Negative Negative [facility] Review by pathologistOrdered By: Helena Ann on 11-01-2022 Pathologist review [place] (Unsp spec) [Interp] Reviewed [facility] Comment on above: Previous reported re sult: May follow Edited by: RGOALFREDO on 11/02/22:1301Negative for malignant cells.Erik Manjarrez D.O. 11/02/22 AMENDED REPORT 11/02/22 1301 PATH REV previously reported as: May follow Serum or plasma albumin rosangela urement (mass/volume)Ordered By: Armando Miranda on 11-01-2022 Albumin [Mass/Vol] 2.6 g/dL 3.2-5.0 [facility] Serum or plasma albumin/glob ulin mass ratioOrdered By: Armando Miranda on 11-01-2022 Albumin/Globulin [Mass ratio] 0.6 {ratio} 0.9-2.4 [facility] Serum or plasma calcium rosangela urement (mass/volume)Ordered By: Armando Miranda on 11-01-2022 Calcium [Mass/Vol] 9.0 mg/dL 8.5-10.1 [facility] Serum or plasma creatinine m easurement (mass/volume)Ordered By: Armando Miranda on 11-01-2022 Creatinine [Mass/Vol] 0.88 mg/dL 0.55-1.02 [facility] Comment on above: The validity of the calculated GFR & GFRAA in patients over 70 years has not been determined. Clinical correlation is essential. Serum or plasma urea nitroge n measurement (mass/volume)Ordered By: Armando Miranda on 11-01-2022 Urea nitrogen [Mass/Vol] 10 mg/dL 7-18 [facility] Squamous epithelial cells de tection in urine sediment by light microscopyOrdered By: Armando Miranda on 11-01-2022 Epithelial cells.squamous LM Ql (Urine sed) 0 SEEN /hpf 5-10 [facility] Thin prep Papanicolaou smear with manual screeningOrdered By: Armando Miranda on 11-01-2022 Thin prep Papanicolaou smear with manual screening 19 U/L 15-37 [facility] Thin prep Papanicolaou smear with manual screening 5 5-15 [facility] Urine blood detectionOrdered By: Armanod Miranda on 11-01-2022 RBC Ql (U) Negative Negative [facility] RBC Ql (U) 0 SEEN /hpf 0-5 [facility] Urine clarityOrdered By: Yudith Miranda on 11-01-2022 Clarity (U) Sl. Cloudy Clear [facility] Urine color determinationOrd ered By: Armando Miranda on 11-01-2022 Color (U) Yellow Yellow [facility] Urine glucose detectionOrder ed By: Armando Miranda on 11-01-2022 Glucose Ql (U) Normal mg/dl Normal [facility] Urine leukocyte esterase det ection by dipstickOrdered By: Armando Miranda on 11-01-2022 Leukocyte esterase Test strip Ql (U) Negative Negative [facility] Urine pHOrdered By: Armando ghotra on 11-01-2022 pH (U) 7.0 [pH] 5.0 - 8.0 [facility] Urine phencyclidine (PCP) de tectionOrdered By: Armando Miranda on 11-01-2022 Phencyclidine Ql (U) Negative < 25 ng/mL [facility] Urine sediment bacteria coun t by microscopy (number/high power field)Ordered By: Armando Miranda on 11-01-2022 Bacteria LM.HPF (Urine sed) [#/Area] 0 /[HPF] None Seen [facility] Urine specific gravity measu rementOrdered By: Armando Miranda on 11-01-2022 Specific gravity (U) [Rel density] 1.010 1.002-1.03 0 [facility] Urobilinogen Auto test strip Ql (U)Ordered By: Armando Miranda on 11-01-2022 Urobilinogen Ql (U) Normal mg/dl Normal [facility] pH measurementOrdered By: Patricia Miranda on 11-01-2022 pH (Unsp spec) 7.35 [pH] 7.35-7.45 [facility] Absolute lymphocyte countOrd ered By: Zia Posey on 10-14-2022 Lymphocytes Auto (Unsp spec) [#/Vol] 1.59 10*3/uL 0.83-4.51 [facility] Basophil percentageOrdered B y: Zia Posey on 10-14-2022 Basophils/100 WBC (Bld) 0.5 % 0-1 [facility] Chloride [Moles/Vol] 114 mmol/L 98-107 [facility] Eosinophils/100 WBC (Bld) 0.9 % 0-5 [facility] Glucose [Mass/Vol] 100 mg/dL 74-106 [facility] Comment on above: Fasting Glucose resu lt from 100 to 125 mg/dL suggests IMPAIRED HOMEOSTASIS per A.D.A. criteria. Neutrophils (Bld) [#/Vol] 3.6 10*3/uL 2.0-7.7 [facility] Neutrophils/100 WBC (Bld) 62.2 % 47-70 [facility] Potassium [Moles/Vol] 3.6 mmol/L 3.5-5.1 [facility] Sodium [Moles/Vol] 143 mmol/L 136-145 [facility] WBC (Bld) [#/Vol] 5.7 10*3/uL 4.4-11.0 [facility] Blood erythrocytes count (nu mber/volume)Ordered By: Zia Posey on 10-14-2022 RBC (Bld) [#/Vol] 3.15 10*6/uL 4.2-5.4 [facility] Blood hemoglobin measurement (mass/volume)Ordered By: Zia Posey on 10-14-2022 Hemoglobin (Bld) [Mass/Vol] 10.1 g/dL 12.0-15.0 [facility] Blood lymphocytes/100 leukoc ytesOrdered By: Zia Posey on 10-14-2022 Lymphocytes/100 WBC (Bld) 27.8 % 19-41 [facility] Blood monocytes/100 leukocyt esOrdered By: Zia Posey on 10-14-2022 Monocytes/100 WBC (Bld) 8.4 % 0-10 [facility] Blood platelet mean volumeOr dered By: Zia Posey on 10-14-2022 Platelet mean volume (Bld) [Entitic vol] 10.0 fL 6.2-12.0 [facility] Determination of erythrocyte mean corpuscular volume (MCV)Ordered By: Zia Posey on 10-14-2022 MCV (RBC) [Entitic vol] 97.1 fL 81-99 [facility] Hematocrit Auto (Bld) [Volum e fraction]Ordered By: Zia Posey on 10-14-2022 Hematocrit (Bld) [Volume fraction] 30.6 % 37-47 [facility] - Chemistry and C hemistry - challengeOrdered By: Zia Posey on 10-14-2022 Cobalamin (Vitamin B12) [Mass/Vol] 312 pg/mL 211-911 [facility] Free T4 [Mass/Vol] 1.27 ng/dL 0.76-1.46 [facility] CO2 [Moles/Vol] 26.0 mmol/L 21.0-32.0 [facility] Urea nitrogen/Creatinine [Mass ratio] 8.1 mg/mg 10-20 [facility] - Hematology and Cell countsOrdered By: Zia Posey on 10-14-2022 Erythrocyte distribution width (RBC) [Entitic vol] 49.1 fL 35.1-43.9 [facility] Erythrocyte distribution width (RBC) [Ratio] 13.7 % 11.6-14.6 [facility] Immature granulocytes/100 WBC (Bld) 0.200 % 0.0-0.9 [facility] Comment on above: IG% - Immature Granu locytes (promyelocytes, myelocytes and metamyelocytes) > 1% indicates that a LEFT SHIFT is Present. MCH (RBC) [Entitic mass] 32.1 pg 27.0-32.0 [facility] Nucleated RBC/100 WBC (Bld) [Ratio] 0 % 0-5 [facility] MCHC Auto (RBC) [Mass/Vol]Or dered By: Zia Posey on 10-14-2022 MCHC (RBC) [Mass/Vol] 33.0 g/dL 32-36 [facility] No Panel InformationOrdered By: Zia Posey on 10-14-2022 Vitamin D 25-Hydroxy 38.7 ng/mL [facility] Comment on above: Vitamin D 25(OH) Sta tus Range Deficiency <20 ng/mL (50nmol/L) Insufficiency 20 - 30 ng/mL (50 - 75 nmol/L) Sufficiency 30 - 100 ng/mL (75 - 250 nmol/L) Toxicity >100 ng/mL (>250 nmol/L) Estimated Creatinine Clearance Calc 39.90 ml/min [facility] Estimated GFR (MDRD) Amer 99 mL/min >60 [facility] Comment on above: GFR Calc Estimated GFR (MDRD) Non-Af Amer 82 mL/min >60 [facility] Comment on above: Non- GFR Calc Thyroid Stimulating Hormone (TSH) 0.04 uIU/mL 0.358-3.74 [facility] Platelets bldOrdered By: Elinor Posey on 10-14-2022 Platelets (Bld) [#/Vol] 247 10*3/uL 150-450 [facility] Serum or plasma calcium rosangela urement (mass/volume)Ordered By: Zia Posey on 10-14-2022 Calcium [Mass/Vol] 8.4 mg/dL 8.5-10.1 [facility] Serum or plasma creatinine m easurement (mass/volume)Ordered By: Zia Posey on 10-14-2022 Creatinine [Mass/Vol] 0.74 mg/dL 0.55-1.02 [facility] Comment on above: The validity of the calculated GFR & GFRAA in patients over 70 years has not been determined. Clinical correlation is essential. Serum or plasma folate measu rement (mass/volume)Ordered By: Zia Posey on 10-14-2022 Folate [Mass/Vol] 6.90 ng/mL 3.1-55.4 [facility] Serum or plasma urea nitroge n measurement (mass/volume)Ordered By: Zia Posey on 10-14-2022 Urea nitrogen [Mass/Vol] 6 mg/dL 7-18 [facility] Thin prep Papanicolaou smear with manual screeningOrdered By: Ziasonia Posey on 10-14-2022 Thin prep Papanicolaou smear with manual screening 3 5-15 [facility] Absolute lymphocyte countOrd ered By: Sheyla Slade on 10-13-2022 Lymphocytes Auto (Unsp spec) [#/Vol] 1.13 10*3/uL 0.83-4.51 [facility] Basophil percentageOrdered B y: Sheyla Slade on 10-13-2022 Lactate [Moles/Vol] 0.8 mmol/L 0.4-2.0 [facility] Basophils/100 WBC (Bld) 0.2 % 0-1 [facility] Bilirubin [Mass/Vol] 0.30 mg/dL 0.20-1.00 [facility] Comment on above: For patients on eltr ombopag therapy, use of Dimension [place] TBIL is not recommended. Chloride [Moles/Vol] 112 mmol/L 98-107 [facility] Eosinophils/100 WBC (Bld) 0.0 % 0-5 [facility] Glucose [Mass/Vol] 91 mg/dL 74-106 [facility] Neutrophils (Bld) [#/Vol] 7.4 10*3/uL 2.0-7.7 [facility] Neutrophils/100 WBC (Bld) 78.3 % 47-70 [facility] Potassium [Moles/Vol] 3.5 mmol/L 3.5-5.1 [facility] Protein [Mass/Vol] 5.7 g/dL 6.4-8.2 [facility] Sodium [Moles/Vol] 143 mmol/L 136-145 [facility] WBC (Bld) [#/Vol] 9.4 10*3/uL 4.4-11.0 [facility] Basophil percentage 0 SEEN /hpf 0-5 [facility] Basophil percentage < 10.0 umol/L 11-32 [facility] Lactate [Moles/Vol] 2.5 mmol/L 0.4-2.0 [facility] Comment on above: Critical Result(s) C alled at: 14:29:10 10/13/2022 by: Stephanie Loera. Results read back by same. Basophil percentageOrdered B y: Ziasonia Posey on 10-13-2022 Basophil percentage 3.1 mg/dL 2.5-4.9 [facility] Bilirubin Test strip Ql (U)O rdered By: Sheyla Slade on 10-13-2022 Bilirubin Ql (U) Negative Negative [facility] Blood erythrocytes count (nu mber/volume)Ordered By: Sheyla Slade on 10-13-2022 RBC (Bld) [#/Vol] 3.35 10*6/uL 4.2-5.4 [facility] Blood hemoglobin measurement (mass/volume)Ordered By: Sheyla Slade on 10-13-2022 Hemoglobin (Bld) [Mass/Vol] 10.3 g/dL 12.0-15.0 [facility] Blood lymphocytes/100 leukoc ytesOrdered By: Sheyla Slade on 10-13-2022 Lymphocytes/100 WBC (Bld) 12.0 % 19-41 [facility] Blood monocytes/100 leukocyt esOrdered By: Sheyla Slade on 10-13-2022 Monocytes/100 WBC (Bld) 9.2 % 0-10 [facility] Blood platelet mean volumeOr dered By: Sheyla Slade on 10-13-2022 Platelet mean volume (Bld) [Entitic vol] 9.8 fL 6.2-12.0 [facility] Determination of erythrocyte mean corpuscular volume (MCV)Ordered By: Sheyla Slade on 10-13-2022 MCV (RBC) [Entitic vol] 97.0 fL 81-99 [facility] Hematocrit Auto (Bld) [Volum e fraction]Ordered By: Sheyla Slade on 10-13-2022 Hematocrit (Bld) [Volume fraction] 32.5 % 37-47 [facility] Ketones Test strip Ql (U)Ord ered By: Sheyla Slade on 10-13-2022 Ketones Ql (U) Negative Negative [facility] - Chemistry and C hemistry - challengeOrdered By: Zia Posey on 10-13-2022 Magnesium [Mass/Vol] 2.2 mg/dL 1.6-2.6 [facility] - Chemistry and C hemistry - challengeOrdered By: Sheyla Slade on 10-13-2022 ALP [Catalytic activity/Vol] 86 U/L 45-117 [facility] ALT [Catalytic activity/Vol] 14 U/L 13-56 [facility] CO2 [Moles/Vol] 25.0 mmol/L 21.0-32.0 [facility] Globulin (S) [Mass/Vol] 3.3 g/dL 2.2-4.2 [facility] Urea nitrogen/Creatinine [Mass ratio] 10.3 mg/mg 10-20 [facility] Free T4 [Mass/Vol] 1.26 ng/dL 0.76-1.46 [facility] - Hematology and Cell countsOrdered By: Sheyla Slade on 10-13-2022 Erythrocyte distribution width (RBC) [Entitic vol] 48.4 fL 35.1-43.9 [facility] Erythrocyte distribution width (RBC) [Ratio] 13.5 % 11.6-14.6 [facility] Immature granulocytes/100 WBC (Bld) 0.300 % 0.0-0.9 [facility] Comment on above: IG% - Immature Granu locytes (promyelocytes, myelocytes and metamyelocytes) > 1% indicates that a LEFT SHIFT is Present. MCH (RBC) [Entitic mass] 30.7 pg 27.0-32.0 [facility] Nucleated RBC/100 WBC (Bld) [Ratio] 0 % 0-5 [facility] MCHC Auto (RBC) [Mass/Vol]Or dered By: Sheyla Slade on 10-13-2022 MCHC (RBC) [Mass/Vol] 31.7 g/dL 32-36 [facility] Mucus LM Ql (Urine sed)Order ed By: Sheyla Slade on 10-13-2022 Mucus Ql (Urine sed) 0 SEEN /hpf [facility] Nitrite Test strip Ql (U)Ord ered By: Sheyla Slade on 10-13-2022 Nitrite Ql (U) Negative Negative [facility] No Panel InformationOrdered By: Sheyla Slade on 10-13-2022 Estimated Creatinine Clearance Calc 43.95 ml/min [facility] Estimated GFR (MDRD) Amer 82 mL/min >60 [facility] Comment on above: GFR Calc Estimated GFR (MDRD) Non-Af Amer 68 mL/min >60 [facility] Comment on above: Non- GFR Calc Free Triiodothyronine (T3) pg/dL 2.2 pg/mL 2.18-3.98 [facility] Platelets bldOrdered By: Elodia Slade on 10-13-2022 Platelets (Bld) [#/Vol] 288 10*3/uL 150-450 [facility] Protein Test strip Ql (U)Ord ered By: Sheyla Slade on 10-13-2022 Protein Ql (U) Negative Negative [facility] Serum or plasma albumin rosangela urement (mass/volume)Ordered By: Sheyla Slade on 10-13-2022 Albumin [Mass/Vol] 2.4 g/dL 3.2-5.0 [facility] Serum or plasma albumin/glob ulin mass ratioOrdered By: Sheyla Slade on 10-13-2022 Albumin/Globulin [Mass ratio] 0.7 {ratio} 0.9-2.4 [facility] Serum or plasma calcium rosangela urement (mass/volume)Ordered By: Sheyla Slade on 10-13-2022 Calcium [Mass/Vol] 8.4 mg/dL 8.5-10.1 [facility] Serum or plasma creatinine m easurement (mass/volume)Ordered By: Sheyla Slade on 10-13-2022 Creatinine [Mass/Vol] 0.87 mg/dL 0.55-1.02 [facility] Comment on above: The validity of the calculated GFR & GFRAA in patients over 70 years has not been determined. Clinical correlation is essential. Serum or plasma urea nitroge n measurement (mass/volume)Ordered By: Sheyla Slade on 10-13-2022 Urea nitrogen [Mass/Vol] 9 mg/dL 7-18 [facility] Squamous epithelial cells de tection in urine sediment by light microscopyOrdered By: Sheyla Slade on 10-13-2022 Epithelial cells.squamous LM Ql (Urine sed) 0-5 SEEN /hpf 5-10 [facility] Thin prep Papanicolaou smear with manual screeningOrdered By: Sheyla Slade on 10-13-2022 Thin prep Papanicolaou smear with manual screening 18 U/L 15-37 [facility] Thin prep Papanicolaou smear with manual screening 6 5-15 [facility] Urine blood detectionOrdered By: Sheyla Slade on 10-13-2022 RBC Ql (U) Negative Negative [facility] RBC Ql (U) 0 SEEN /hpf 0-5 [facility] Urine clarityOrdered By: Elodia Slade on 10-13-2022 Clarity (U) Sl. Cloudy Clear [facility] Urine color determinationOrd ered By: Sheyla Slade on 10-13-2022 Color (U) Yellow Yellow [facility] Urine glucose detectionOrder ed By: Sheyla Slade on 10-13-2022 Glucose Ql (U) 50 mg/dl Normal [facility] Urine leukocyte esterase det ection by dipstickOrdered By: Sheyla Slade on 10-13-2022 Leukocyte esterase Test strip Ql (U) Negative Negative [facility] Urine pHOrdered By: Sheyla fink on 10-13-2022 pH (U) 6.0 [pH] 5.0 - 8.0 [facility] Urine sediment bacteria coun t by microscopy (number/high power field)Ordered By: Sheyla Slade on 10-13-2022 Bacteria LM.HPF (Urine sed) [#/Area] 0 /[HPF] None Seen [facility] Urine specific gravity measu rementOrdered By: Sheyla Slade on 10-13-2022 Specific gravity (U) [Rel density] 1.015 1.002-1.03 0 [facility] Urobilinogen Auto test strip Ql (U)Ordered By: Sheyla Slade on 10-13-2022 Urobilinogen Ql (U) Normal mg/dl Normal [facility] Absolute lymphocyte countOrd ered By: Harish Luis on 10-12-2022 Lymphocytes Auto (Unsp spec) [#/Vol] 1.77 10*3/uL 0.83-4.51 [facility] Basophil percentageOrdered B y: Harish Luis on 10-12-2022 Basophils/100 WBC (Bld) 0.8 % 0-1 [facility] Bilirubin [Mass/Vol] 0.50 mg/dL 0.20-1.00 [facility] Comment on above: For patients on eltr ombopag therapy, use of Dimension [place] TBIL is not recommended. Chloride [Moles/Vol] 108 mmol/L 98-107 [facility] Eosinophils/100 WBC (Bld) 1.5 % 0-5 [facility] Glucose [Mass/Vol] 116 mg/dL 74-106 [facility] Comment on above: Fasting Glucose resu lt from 100 to 125 mg/dL suggests IMPAIRED HOMEOSTASIS per A.D.A. criteria. Neutrophils (Bld) [#/Vol] 4.6 10*3/uL 2.0-7.7 [facility] Neutrophils/100 WBC (Bld) 63.9 % 47-70 [facility] Potassium [Moles/Vol] 3.6 mmol/L 3.5-5.1 [facility] Protein [Mass/Vol] 6.9 g/dL 6.4-8.2 [facility] Sodium [Moles/Vol] 142 mmol/L 136-145 [facility] WBC (Bld) [#/Vol] 7.2 10*3/uL 4.4-11.0 [facility] Blood erythrocytes count (nu mber/volume)Ordered By: Harish Luis on 10-12-2022 RBC (Bld) [#/Vol] 4.18 10*6/uL 4.2-5.4 [facility] Blood hemoglobin measurement (mass/volume)Ordered By: Harish Luis on 10-12-2022 Hemoglobin (Bld) [Mass/Vol] 13.2 g/dL 12.0-15.0 [facility] Blood lymphocytes/100 leukoc ytesOrdered By: Harish Luis on 10-12-2022 Lymphocytes/100 WBC (Bld) 24.4 % 19-41 [facility] Blood monocytes/100 leukocyt esOrdered By: Harish Luis on 10-12-2022 Monocytes/100 WBC (Bld) 9.0 % 0-10 [facility] Blood platelet mean volumeOr dered By: Harish Luis on 10-12-2022 Platelet mean volume (Bld) [Entitic vol] 10.2 fL 6.2-12.0 [facility] Determination of erythrocyte mean corpuscular volume (MCV)Ordered By: Harish Luis on 10-12-2022 MCV (RBC) [Entitic vol] 95.9 fL 81-99 [facility] Hematocrit Auto (Bld) [Volum e fraction][facility] Hematocrit (Bld) [Volume fraction] 40.1 % 37-47 [facility] - Chemistry and C hemistry - challengeOrdered By: Harish Toby on 10-12-2022 ALP [Catalytic activity/Vol] 115 U/L 45-117 [facility] ALT [Catalytic activity/Vol] 17 U/L 13-56 [facility] CO2 [Moles/Vol] 28.0 mmol/L 21.0-32.0 [facility] Globulin (S) [Mass/Vol] 3.9 g/dL 2.2-4.2 [facility] Urea nitrogen/Creatinine [Mass ratio] 6.7 mg/mg 10-20 [facility] - Hematology and Cell countsOrdered By: Harish Luis on 10-12-2022 Erythrocyte distribution width (RBC) [Entitic vol] 48.3 fL 35.1-43.9 [facility] Erythrocyte distribution width (RBC) [Ratio] 13.5 % 11.6-14.6 [facility] Immature granulocytes/100 WBC (Bld) 0.400 % 0.0-0.9 [facility] Comment on above: IG% - Immature Granu locytes (promyelocytes, myelocytes and metamyelocytes) > 1% indicates that a LEFT SHIFT is Present. MCH (RBC) [Entitic mass] 31.6 pg 27.0-32.0 [facility] Nucleated RBC/100 WBC (Bld) [Ratio] 0 % 0-5 [facility] MCHC Auto (RBC) [Mass/Vol]Or dered By: Harish Luis on 10-12-2022 MCHC (RBC) [Mass/Vol] 32.9 g/dL 32-36 [facility] No Panel InformationOrdered By: Harish Luis on 10-12-2022 Estimated GFR (MDRD) Amer 66 mL/min >60 [facility] Comment on above: GFR Calc Estimated GFR (MDRD) Non-Af Amer 55 mL/min >60 [facility] Comment on above: Non- GFR Calc Thyroid Stimulating Hormone (TSH) 0.05 uIU/mL 0.358-3.74 [facility] Platelets bldOrdered By: Harish Luis on 10-12-2022 Platelets (Bld) [#/Vol] 341 10*3/uL 150-450 [facility] Serum or plasma albumin rosangela urement (mass/volume)Ordered By: Harish Luis 10-12-2022 Albumin [Mass/Vol] 3.0 g/dL 3.2-5.0 [facility] Serum or plasma albumin/glob ulin mass ratioOrdered By: Harish Luis 10-12-2022 Albumin/Globulin [Mass ratio] 0.8 {ratio} 0.9-2.4 [facility] Serum or plasma calcium rosangela urement (mass/volume)Ordered By: Harish Luis 10-12-2022 Calcium [Mass/Vol] 9.1 mg/dL 8.5-10.1 [facility] Serum or plasma creatinine m easurement (mass/volume)Ordered By: Harish Luis 10-12-2022 Creatinine [Mass/Vol] 1.05 mg/dL 0.55-1.02 [facility] Comment on above: The validity of the calculated GFR & GFRAA in patients over 70 years has not been determined. Clinical correlation is essential. Serum or plasma urea nitroge n measurement (mass/volume)Ordered By: Harish Luis on 10-12-2022 Urea nitrogen [Mass/Vol] 7 mg/dL -18 [facility] Thin prep Papanicolaou smear with manual screeningOrdered By: Harish Luis on 10-12-2022 Thin prep Papanicolaou smear with manual screening 22 U/L 15-37 [facility] Thin prep Papanicolaou smear with manual screening 6 5-15 [facility] Basophil percentageOrdered B y: Sondra Rooney on 08-03-2022 Cholesterol [Mass/Vol] 176 mg/dL <200 [facility] Comment on above: <200 mg/dL Desirable 200-240 mg/dL Borderline >240 mg/dL High Risk Triglyceride [Mass/Vol] 79 mg/dL <199 [facility] Comment on above: The drugs N-Acetylcy steine and Metamizole may falsely depress this assay.Serum Triglycerides Reference Interval Normal <150 mg/dL Borderline high 150 - 199 mg/dL High 200 - 499 mg/dL Very High > or = 500 mg/dL Serum or plasma cholesterol in HDL measurement (mass/volume)Ordered By: Sondra Rooney on 08-03-2022 Cholesterol in HDL [Mass/Vol] 52 mg/dL >40 [facility] Comment on above: The drugs N-Acetylcy steine and Metamizole may falsely depress this assay. Reference Range HDL <40 mg/dL Low HDL Cholesterol HDL >or= 60 mg/dL High HDL Cholesterol Serum or plasma cholesterol in VLDL measurement (mass/volume)Ordered By: Sondra Rooney on 08-03-2022 Cholesterol in VLDL [Mass/Vol] 16 mg/dL 5-40 [facility] Serum or plasma low density lipoprotein (LDL) cholesterol measurement (mass/volume)Ordered By: Sondra Rooney on 08-03-2022 Cholesterol in LDL [Mass/Vol] 108 mg/dL 0-130 [facility] Glucose Glucometer (BldC) [M ass/Vol]Ordered By: Doni Hanson on 08-02-2022 Glucose [Mass/Vol] 109 mg/dL 74-106 [facility] Comment on above: MANAGEMENT OF PATIEN T CARE PER NURSING PROTOCOL Absolute lymphocyte countOrd ered By: Rafita Siddiqui on 07-30-2022 Lymphocytes Auto (Unsp spec) [#/Vol] 1.32 10*3/uL 0.83-4.51 [facility] Basophil percentageOrdered B y: Rafita Siddiqui on 07-30-2022 Basophils/100 WBC (Bld) 0.4 % 0-1 [facility] Chloride [Moles/Vol] 108 mmol/L 98-107 [facility] Eosinophils/100 WBC (Bld) 2.1 % 0-5 [facility] Glucose [Mass/Vol] 100 mg/dL 74-106 [facility] Comment on above: Fasting Glucose resu lt from 100 to 125 mg/dL suggests IMPAIRED HOMEOSTASIS per A.D.A. criteria. Neutrophils (Bld) [#/Vol] 5.0 10*3/uL 2.0-7.7 [facility] Neutrophils/100 WBC (Bld) 70.5 % 47-70 [facility] Potassium [Moles/Vol] 3.9 mmol/L 3.5-5.1 [facility] Sodium [Moles/Vol] 137 mmol/L 136-145 [facility] WBC (Bld) [#/Vol] 7.1 10*3/uL 4.4-11.0 [facility] Blood erythrocytes count (nu mber/volume)Ordered By: Rafita Siddiqui on 07-30-2022 RBC (Bld) [#/Vol] 3.34 10*6/uL 4.2-5.4 [facility] Blood hemoglobin measurement (mass/volume)Ordered By: Rafita Siddiqui on 07-30-2022 Hemoglobin (Bld) [Mass/Vol] 10.4 g/dL 12.0-15.0 [facility] Blood lymphocytes/100 leukoc ytesOrdered By: Rafita Siddiqui on 07-30-2022 Lymphocytes/100 WBC (Bld) 18.5 % 19-41 [facility] Blood monocytes/100 leukocyt esOrdered By: Rafita Siddiqui on 07-30-2022 Monocytes/100 WBC (Bld) 8.1 % 0-10 [facility] Blood platelet mean volumeOr dered By: Rafita Siddiqui on 07-30-2022 Platelet mean volume (Bld) [Entitic vol] 10.3 fL 6.2-12.0 [facility] Determination of erythrocyte mean corpuscular volume (MCV)Ordered By: Rafita Siddiqui on 07-30-2022 MCV (RBC) [Entitic vol] 97.9 fL 81-99 [facility] Hematocrit Auto (Bld) [Volum e fraction]Ordered By: Rafita Siddiqui on 07-30-2022 Hematocrit (Bld) [Volume fraction] 32.7 % 37-47 [facility] - Chemistry and C hemistry - challengeOrdered By: Rafita Siddiqui on 07-30-2022 CO2 [Moles/Vol] 23.0 mmol/L 21.0-32.0 [facility] Urea nitrogen/Creatinine [Mass ratio] 13.9 mg/mg 10-20 [facility] - Hematology and Cell countsOrdered By: Rafita Siddiqui on 07-30-2022 Erythrocyte distribution width (RBC) [Entitic vol] 52.1 fL 35.1-43.9 [facility] Erythrocyte distribution width (RBC) [Ratio] 14.5 % 11.6-14.6 [facility] Immature granulocytes/100 WBC (Bld) 0.400 % 0.0-0.9 [facility] Comment on above: IG% - Immature Granu locytes (promyelocytes, myelocytes and metamyelocytes) > 1% indicates that a LEFT SHIFT is Present. MCH (RBC) [Entitic mass] 31.1 pg 27.0-32.0 [facility] Nucleated RBC/100 WBC (Bld) [Ratio] 0 % 0-5 [facility] MCHC Auto (RBC) [Mass/Vol]Or dered By: Rafita Siddiqui on 07-30-2022 MCHC (RBC) [Mass/Vol] 31.8 g/dL 32-36 [facility] No Panel InformationOrdered By: Rafita Siddiqui on 07-30-2022 Streptococcus pneumoniae Antigen (M [facility] Estimated Creatinine Clearance Calc 41.65 ml/min [facility] Estimated GFR (MDRD) Amer 69 mL/min >60 [facility] Comment on above: GFR Calc Estimated GFR (MDRD) Non-Af Amer 57 mL/min >60 [facility] Comment on above: Non- GFR Calc Platelets bldOrdered By: Pina Siddiqui on 07-30-2022 Platelets (Bld) [#/Vol] 286 10*3/uL 150-450 [facility] Serum or plasma calcium rosangela urement (mass/volume)Ordered By: Rafita Siddiqui on 07-30-2022 Calcium [Mass/Vol] 8.4 mg/dL 8.5-10.1 [facility] Serum or plasma creatinine m easurement (mass/volume)Ordered By: Rafita Siddiqui on 07-30-2022 Creatinine [Mass/Vol] 1.01 mg/dL 0.55-1.02 [facility] Comment on above: The validity of the calculated GFR & GFRAA in patients over 70 years has not been determined. Clinical correlation is essential. Serum or plasma urea nitroge n measurement (mass/volume)Ordered By: Rafita Siddiqui on 07-30-2022 Urea nitrogen [Mass/Vol] 14 mg/dL 7-18 [facility] Thin prep Papanicolaou smear with manual screeningOrdered By: Rafita Siddiqui on 07-30-2022 Thin prep Papanicolaou smear with manual screening 6 5-15 [facility] Absolute lymphocyte countOrd ered By: Dr. Rosales on 07-29-2022 Lymphocytes Auto (Unsp spec) [#/Vol] 0.73 10*3/uL 0.83-4.51 [facility] Basophil percentageOrdered B y: Dr. Rosales on 07-29-2022 Lactate [Moles/Vol] 1.7 mmol/L 0.4-2.0 [facility] Basophils/100 WBC (Bld) 0.7 % 0-1 [facility] Chloride [Moles/Vol] 110 mmol/L 98-107 [facility] Eosinophils/100 WBC (Bld) 2.2 % 0-5 [facility] Glucose [Mass/Vol] 123 mg/dL 74-106 [facility] Comment on above: Fasting Glucose resu lt from 100 to 125 mg/dL suggests IMPAIRED HOMEOSTASIS per A.D.A. criteria. Neutrophils (Bld) [#/Vol] 6.7 10*3/uL 2.0-7.7 [facility] Neutrophils/100 WBC (Bld) 81.7 % 47-70 [facility] Potassium [Moles/Vol] 3.9 mmol/L 3.5-5.1 [facility] Sodium [Moles/Vol] 142 mmol/L 136-145 [facility] WBC (Bld) [#/Vol] 8.2 10*3/uL 4.4-11.0 [facility] Blood erythrocytes count (nu mber/volume)Ordered By: Dr. Rosales on 07-29-2022 RBC (Bld) [#/Vol] 3.91 10*6/uL 4.2-5.4 [facility] Blood hemoglobin measurement (mass/volume)Ordered By: Dr. Rosales on 07-29-2022 Hemoglobin (Bld) [Mass/Vol] 12.0 g/dL 12.0-15.0 [facility] Blood lymphocytes/100 leukoc ytesOrdered By: Dr. Rosales on 07-29-2022 Lymphocytes/100 WBC (Bld) 8.9 % 19-41 [facility] Blood monocytes/100 leukocyt esOrdered By: Dr. Rosales on 07-29-2022 Monocytes/100 WBC (Bld) 6.3 % 0-10 [facility] Blood platelet mean volumeOr dered By: Dr. Rosales on 07-29-2022 Platelet mean volume (Bld) [Entitic vol] 10.5 fL 6.2-12.0 [facility] Determination of erythrocyte mean corpuscular volume (MCV)Ordered By: Dr. Rosales on 07-29-2022 MCV (RBC) [Entitic vol] 99.0 fL 81-99 [facility] Hematocrit Auto (Bld) [Volum e fraction]Ordered By: Dr. Rosales on 07-29-2022 Hematocrit (Bld) [Volume fraction] 38.7 % 37-47 [facility] Influenza virus A and B and SARS-CoV-2 (COVID-19) Ag panel - Upper respiratory specimOrdered By: Dimitry Rosales on 07-29-2022 SARS-CoV-2 & FLU Antigen (Rapid) Influenzae B [facility] Influenza virus A and B and SARS-CoV-2 (COVID-19) Ag panel - Upper respiratory specimOrdered By: Dr. Rosales on 07-29-2022 SARS-CoV-2 & FLU Antigen (Rapid) Influenzae B [facility] - Chemistry and C hemistry - challengeOrdered By: Dr. Rosales on 07-29-2022 CO2 [Moles/Vol] 27.0 mmol/L 21.0-32.0 [facility] Natriuretic peptide B (Bld) [Mass/Vol] 36.5 pg/mL 0-100 [facility] Urea nitrogen/Creatinine [Mass ratio] 13.0 mg/mg 10-20 [facility] - Hematology and Cell countsOrdered By: Dr. Rosales on 07-29-2022 Erythrocyte distribution width (RBC) [Entitic vol] 52.6 fL 35.1-43.9 [facility] Erythrocyte distribution width (RBC) [Ratio] 14.6 % 11.6-14.6 [facility] Immature granulocytes/100 WBC (Bld) 0.200 % 0.0-0.9 [facility] Comment on above: IG% - Immature Granu locytes (promyelocytes, myelocytes and metamyelocytes) > 1% indicates that a LEFT SHIFT is Present. MCH (RBC) [Entitic mass] 30.7 pg 27.0-32.0 [facility] Nucleated RBC/100 WBC (Bld) [Ratio] 0 % 0-5 [facility] - Microbiology an d Antimicrobial susceptibilityOrdered By: Dimitry Rosales on 07-29-2022 Bacteria identified Cx Nom (Bld) No growth in 5 days. [facility] MCHC Auto (RBC) [Mass/Vol]Or dered By: Dr. Rosales on 07-29-2022 MCHC (RBC) [Mass/Vol] 31.0 g/dL 32-36 [facility] No Panel InformationOrdered By: Dr. Rosales on 07-29-2022 D-Dimer Quantitative (PE/DVT) 0.62 FEU/ug/m 0.27-0.49 [facility] Comment on above: D-Dimer ELEVATED (>0 .49): Additional studies and clinicalassessments are indicated to conclude diagnosis of:Deep Vein Thrombosis (DVT) or Pulmonary Embolism (PE)CRITICAL VALUE VERIFIED. CALLED TO KADEEM GEORGE07/29/22 0913 Andressa Germain.RESULTS READ BACK BY SAME . Estimated Creatinine Clearance Calc 38.95 ml/min [facility] Estimated GFR (MDRD) Amer 64 mL/min >60 [facility] Comment on above: GFR Calc Estimated GFR (MDRD) Non-Af Amer 53 mL/min >60 [facility] Comment on above: Non- GFR Calc Troponin I High Sensitivity 3 pg/mL 3.0-54.0 [facility] Comment on above: Please Note: New Nu t Units and Gender Specific Reference Ranges. For more information see Policy Stat Procedure [place] High Sensitivity Troponin (TNIH) and attachments. Platelets bldOrdered By: Dr. Rosales on 07-29-2022 Platelets (Bld) [#/Vol] 296 10*3/uL 150-450 [facility] Serum or plasma calcium rosangela urement (mass/volume)Ordered By: Dr. Rosales on 07-29-2022 Calcium [Mass/Vol] 8.7 mg/dL 8.5-10.1 [facility] Serum or plasma creatinine m easurement (mass/volume)Ordered By: Dr. Rosales on 07-29-2022 Creatinine [Mass/Vol] 1.08 mg/dL 0.55-1.02 [facility] Comment on above: The validity of the calculated GFR & GFRAA in patients over 70 years has not been determined. Clinical correlation is essential. Serum or plasma urea nitroge n measurement (mass/volume)Ordered By: Dr. Rosales on 07-29-2022 Urea nitrogen [Mass/Vol] 14 mg/dL 7-18 [facility] Thin prep Papanicolaou smear with manual screeningOrdered By: Dr. Rosales on 07-29-2022 Thin prep Papanicolaou smear with manual screening 5 5-15 [facility] Absolute lymphocyte countOrd ered By: Dr. Luis on 07-06-2022 Lymphocytes Auto (Unsp spec) [#/Vol] 1.65 10*3/uL 0.83-4.51 [facility] Basophil percentageOrdered B y: Dr. Luis on 07-06-2022 Basophils/100 WBC (Bld) 1.1 % 0-1 [facility] Bilirubin [Mass/Vol] 0.30 mg/dL 0.20-1.00 [facility] Comment on above: For patients on eltr ombopag therapy, use of Dimension [place] TBIL is not recommended. Chloride [Moles/Vol] 112 mmol/L 98-107 [facility] Eosinophils/100 WBC (Bld) 2.8 % 0-5 [facility] Glucose [Mass/Vol] 97 mg/dL 74-106 [facility] Neutrophils (Bld) [#/Vol] 2.3 10*3/uL 2.0-7.7 [facility] Neutrophils/100 WBC (Bld) 50.8 % 47-70 [facility] Potassium [Moles/Vol] 3.8 mmol/L 3.5-5.1 [facility] Protein [Mass/Vol] 7.1 g/dL 6.4-8.2 [facility] Sodium [Moles/Vol] 141 mmol/L 136-145 [facility] WBC (Bld) [#/Vol] 4.6 10*3/uL 4.4-11.0 [facility] Blood erythrocytes count (nu mber/volume)Ordered By: Dr. Luis on 07-06-2022 RBC (Bld) [#/Vol] 4.35 10*6/uL 4.2-5.4 [facility] Blood hemoglobin measurement (mass/volume)Ordered By: Dr. Luis on 07-06-2022 Hemoglobin (Bld) [Mass/Vol] 13.3 g/dL 12.0-15.0 [facility] Blood lymphocytes/100 leukoc ytesOrdered By: Dr. Luis on 07-06-2022 Lymphocytes/100 WBC (Bld) 35.8 % 19-41 [facility] Blood monocytes/100 leukocyt esOrdered By: Dr. Luis on 07-06-2022 Monocytes/100 WBC (Bld) 9.3 % 0-10 [facility] Blood platelet mean volumeOr dered By: Dr. Luis on 07-06-2022 Platelet mean volume (Bld) [Entitic vol] 9.7 fL 6.2-12.0 [facility] Determination of erythrocyte mean corpuscular volume (MCV)Ordered By: Dr. Luis on 07-06-2022 MCV (RBC) [Entitic vol] 98.4 fL 81-99 [facility] Hematocrit Auto (Bld) [Volum e fraction]Ordered By: Dr. Luis on 07-06-2022 Hematocrit (Bld) [Volume fraction] 42.8 % 37-47 [facility] - Chemistry and C hemistry - challengeOrdered By: Dr. Luis on 07-06-2022 ALP [Catalytic activity/Vol] 102 U/L 45-117 [facility] ALT [Catalytic activity/Vol] 17 U/L 13-56 [facility] CO2 [Moles/Vol] 27.0 mmol/L 21.0-32.0 [facility] Globulin (S) [Mass/Vol] 4.0 g/dL 2.2-4.2 [facility] Urea nitrogen/Creatinine [Mass ratio] 8.6 mg/mg 10-20 [facility] - Hematology and Cell countsOrdered By: Dr. Luis on 07-06-2022 Erythrocyte distribution width (RBC) [Entitic vol] 50.4 fL 35.1-43.9 [facility] Erythrocyte distribution width (RBC) [Ratio] 13.9 % 11.6-14.6 [facility] Immature granulocytes/100 WBC (Bld) 0.200 % 0.0-0.9 [facility] Comment on above: IG% - Immature Granu locytes (promyelocytes, myelocytes and metamyelocytes) > 1% indicates that a LEFT SHIFT is Present. MCH (RBC) [Entitic mass] 30.6 pg 27.0-32.0 [facility] Nucleated RBC/100 WBC (Bld) [Ratio] 0 % 0-5 [facility] MCHC Auto (RBC) [Mass/Vol]Or dered By: Dr. Luis on 07-06-2022 MCHC (RBC) [Mass/Vol] 31.1 g/dL 32-36 [facility] No Panel InformationOrdered By: Dr. Luis on 07-06-2022 Estimated GFR (MDRD) Amer 76 mL/min >60 [facility] Comment on above: GFR Calc Estimated GFR (MDRD) Non-Af Amer 63 mL/min >60 [facility] Comment on above: Non- GFR Calc Thyroid Stimulating Hormone (TSH) 0.47 uIU/mL 0.358-3.74 [facility] Vitamin D 25-Hydroxy 32.0 ng/mL [facility] Comment on above: Vitamin D 25(OH) Sta tus Range Deficiency <20 ng/mL (50nmol/L) Insufficiency 20 - 30 ng/mL (50 - 75 nmol/L) Sufficiency 30 - 100 ng/mL (75 - 250 nmol/L) Toxicity >100 ng/mL (>250 nmol/L) Platelets bldOrdered By: Dr. Luis on 07-06-2022 Platelets (Bld) [#/Vol] 351 10*3/uL 150-450 [facility] Serum or plasma albumin rosangela urement (mass/volume)Ordered By: Dr. Luis on 07-06-2022 Albumin [Mass/Vol] 3.1 g/dL 3.2-5.0 [facility] Serum or plasma albumin/glob ulin mass ratioOrdered By: Dr. Luis on 07-06-2022 Albumin/Globulin [Mass ratio] 0.8 {ratio} 0.9-2.4 [facility] Serum or plasma calcium rosangela urement (mass/volume)Ordered By: Dr. Luis on 07-06-2022 Calcium [Mass/Vol] 8.9 mg/dL 8.5-10.1 [facility] Serum or plasma creatinine m easurement (mass/volume)Ordered By: Dr. Luis on 07-06-2022 Creatinine [Mass/Vol] 0.94 mg/dL 0.55-1.02 [facility] Comment on above: The validity of the calculated GFR & GFRAA in patients over 70 years has not been determined. Clinical correlation is essential. Serum or plasma urea nitroge n measurement (mass/volume)Ordered By: Dr. Luis on 07-06-2022 Urea nitrogen [Mass/Vol] 8 mg/dL 7-18 [facility] Thin prep Papanicolaou smear with manual screeningOrdered By: Dr. Luis on 07-06-2022 Thin prep Papanicolaou smear with manual screening 17 U/L 15-37 [facility] Thin prep Papanicolaou smear with manual screening 2 5-15 [facility] COVID-19 virus antigen assay Ordered By: Dr. Luis on 06-28-2022 SARS-CoV-2 (COVID-19) Ag IA.rapid Ql (Resp) Not detected Not Detect [facility] Comment on above: Normal Reference Ran [...] 06-28-2022 Influenza Types A,B Direct FA (STEPHANIE) [facility] No Panel InformationOrdered By: Dr. Luis on 06-28-2022 Influenza Types A,B Direct FA (STEPHANIE) [facility] RSV Ag EIAOrdered By: Harish neal on 06-28-2022 RSV Ag Immune stain Ql (Tiss) [facility] RSV Ag EIAOrdered By: Dr. Desiree neal on 06-28-2022 RSV Ag Immune stain Ql (Tiss) [facility] Basophil percentageOrdered B y: Dr. Manley on 04-24-2022 Chloride [Moles/Vol] 113 mmol/L 98-107 [facility] Glucose [Mass/Vol] 100 mg/dL 74-106 [facility] Comment on above: Fasting Glucose resu lt from 100 to 125 mg/dL suggests IMPAIRED HOMEOSTASIS per A.D.A. criteria. Potassium [Moles/Vol] 3.8 mmol/L 3.5-5.1 [facility] Sodium [Moles/Vol] 143 mmol/L 136-145 [facility] WBC (Bld) [#/Vol] 4.4 10*3/uL 4.4-11.0 [facility] Blood erythrocytes count (nu mber/volume)Ordered By: Dr. Manley on 04-24-2022 RBC (Bld) [#/Vol] 3.86 10*6/uL 4.2-5.4 [facility] Blood hemoglobin measurement (mass/volume)Ordered By: Dr. Manley on 04-24-2022 Hemoglobin (Bld) [Mass/Vol] 12.0 g/dL 12.0-15.0 [facility] Blood platelet mean volumeOr dered By: Dr. Manley on 04-24-2022 Platelet mean volume (Bld) [Entitic vol] 9.6 fL 6.2-12.0 [facility] Determination of erythrocyte mean corpuscular volume (MCV)Ordered By: Dr. Manley on 04-24-2022 MCV (RBC) [Entitic vol] 100.0 fL 81-99 [facility] Hematocrit Auto (Bld) [Volum e fraction]Ordered By: Dr. Manley on 04-24-2022 Hematocrit (Bld) [Volume fraction] 38.6 % 37-47 [facility] INR in Blood by Coagulation assayOrdered By: Dr. Manley on 04-24-2022 INR Coag (Bld) [Relative time] 1.0 {INR} [facility] - Chemistry and C hemistry - challengeOrdered By: Dr. Manley on 04-24-2022 CO2 [Moles/Vol] 25.0 mmol/L 21.0-32.0 [facility] Urea nitrogen/Creatinine [Mass ratio] 9.7 mg/mg 10-20 [facility] - CoagulationOrde red By: Dr. Manley on 04-24-2022 aPTT Coag (Bld) [Time] 33.1 s 24.1-36.2 [facility] PT Coag (PPP) [Time] 12.8 s 11.7-14.9 [facility] - Hematology and Cell countsOrdered By: Dr. Manley on 04-24-2022 Erythrocyte distribution width (RBC) [Entitic vol] 53.3 fL 35.1-43.9 [facility] Erythrocyte distribution width (RBC) [Ratio] 14.3 % 11.6-14.6 [facility] MCH (RBC) [Entitic mass] 31.1 pg 27.0-32.0 [facility] MCHC Auto (RBC) [Mass/Vol]Or dered By: Dr. Manley on 04-24-2022 MCHC (RBC) [Mass/Vol] 31.1 g/dL 32-36 [facility] No Panel InformationOrdered By: Dr. Manley on 04-24-2022 Estimated GFR (MDRD) Amer 77 mL/min >60 [facility] Comment on above: GFR Calc Estimated GFR (MDRD) Non-Af Amer 63 mL/min >60 [facility] Comment on above: Non- GFR Calc Platelets bldOrdered By: Dr. Manley on 04-24-2022 Platelets (Bld) [#/Vol] 408 10*3/uL 150-450 [facility] Serum or plasma calcium rosangela urement (mass/volume)Ordered By: Dr. Manley on 04-24-2022 Calcium [Mass/Vol] 8.8 mg/dL 8.5-10.1 [facility] Serum or plasma creatinine m easurement (mass/volume)Ordered By: Dr. Manley on 04-24-2022 Creatinine [Mass/Vol] 0.93 mg/dL 0.55-1.02 [facility] Comment on above: The validity of the calculated GFR & GFRAA in patients over 70 years has not been determined. Clinical correlation is essential. Serum or plasma urea nitroge n measurement (mass/volume)Ordered By: Dr. Manley on 04-24-2022 Urea nitrogen [Mass/Vol] 9 mg/dL 7-18 [facility] Thin prep Papanicolaou smear with manual screeningOrdered By: Dr. Manley on 04-24-2022 Thin prep Papanicolaou smear with manual screening 5 5-15 [facility] - Microbiology an d Antimicrobial susceptibilityOrdered By: Dr. Luis on 04-10-2022 SARS-CoV-2 (COVID-19) RNA ANTIONE+probe Ql (Unsp spec) Not detected Not Detect [facility] Comment on above: Normal Reference Ran ge: Not DetectedMethod:(RT-PCR) real-time reverse transcriptase PCRLuminex BRADY Instrument*The Food and Drug Administration (FDA) has issued an Emergency Use Authorization (EAU) for the BRADY SARS-CoV-2 Assay for the rapid detection of the virus that causes COVID-19. This test has been validated, but the [facility] independent review of this validation [...] 04-10-2022 Influenza Types A,B Direct FA (STEPHANIE) [facility] RSV Ag EIAOrdered By: Dr. Desiree neal on 04-10-2022 RSV Ag Immune stain Ql (Tiss) [facility] - Microbiology an d Antimicrobial susceptibilityOrdered By: Dr. Luis on 03-31-2022 SARS-CoV-2 (COVID-19) RNA ANTIONE+probe Ql (Unsp spec) Not detected Not Detect [facility] Comment on above: Normal Reference Ran ge: Not DetectedMethod:(RT-PCR) real-time reverse transcriptase PCRLuminex BRADY Instrument*The Food and Drug Administration (FDA) has issued an Emergency Use Authorization (EAU) for the BRADY SARS-CoV-2 Assay for the rapid detection of the virus that causes COVID-19. This test has been validated, but the [facility] independent review of this validation [...] 03-31-2022 Influenza Types A,B Direct FA (STEPHANIE) [facility] RSV Ag EIAOrdered By: Dr. Desiree neal on 03-31-2022 RSV Ag Immune stain Ql (Tiss) [facility] Absolute lymphocyte countOrd ered By: Dr. Luis on 12-28-2021 Lymphocytes Auto (Unsp spec) [#/Vol] 1.82 10*3/uL 0.83-4.51 [facility] Basophil percentageOrdered B y: Dr. Luis on 12-28-2021 Basophils/100 WBC (Bld) 1.0 % 0-1 [facility] Bilirubin [Mass/Vol] 0.50 mg/dL 0.20-1.00 [facility] Comment on above: For patients on eltr ombopag therapy, use of Dimension [place] TBIL is not recommended. Chloride [Moles/Vol] 112 mmol/L 98-107 [facility] Eosinophils/100 WBC (Bld) 1.7 % 0-5 [facility] Glucose [Mass/Vol] 97 mg/dL 74-106 [facility] Neutrophils (Bld) [#/Vol] 1.7 10*3/uL 2.0-7.7 [facility] Neutrophils/100 WBC (Bld) 43.2 % 47-70 [facility] Potassium [Moles/Vol] 3.7 mmol/L 3.5-5.1 [facility] Protein [Mass/Vol] 6.2 g/dL 6.4-8.2 [facility] Sodium [Moles/Vol] 141 mmol/L 136-145 [facility] WBC (Bld) [#/Vol] 4.0 10*3/uL 4.4-11.0 [facility] Blood erythrocytes count (nu mber/volume)Ordered By: Dr. Luis on 12-28-2021 RBC (Bld) [#/Vol] 3.56 10*6/uL 4.2-5.4 [facility] Blood hemoglobin measurement (mass/volume)Ordered By: Dr. Luis on 12-28-2021 Hemoglobin (Bld) [Mass/Vol] 11.2 g/dL 12.0-15.0 [facility] Blood lymphocytes/100 leukoc ytesOrdered By: Dr. Luis on 12-28-2021 Lymphocytes/100 WBC (Bld) 45.2 % 19-41 [facility] Blood monocytes/100 leukocyt esOrdered By: Dr. Luis on 12-28-2021 Monocytes/100 WBC (Bld) 8.7 % 0-10 [facility] Blood platelet mean volumeOr dered By: Dr. Luis on 12-28-2021 Platelet mean volume (Bld) [Entitic vol] 11.1 fL 6.2-12.0 [facility] Determination of erythrocyte mean corpuscular volume (MCV)Ordered By: Dr. Luis on 12-28-2021 MCV (RBC) [Entitic vol] 96.1 fL 81-99 [facility] Hematocrit Auto (Bld) [Volum e fraction]Ordered By: Dr. Luis on 12-28-2021 Hematocrit (Bld) [Volume fraction] 34.2 % 37-47 [facility] - Chemistry and C hemistry - challengeOrdered By: Dr. Luis on 12-28-2021 ALP [Catalytic activity/Vol] 68 U/L 45-117 [facility] ALT [Catalytic activity/Vol] 14 U/L 13-56 [facility] CO2 [Moles/Vol] 25.0 mmol/L 21.0-32.0 [facility] Globulin (S) [Mass/Vol] 3.0 g/dL 2.2-4.2 [facility] Urea nitrogen/Creatinine [Mass ratio] 8.5 mg/mg 10-20 [facility] - Hematology and Cell countsOrdered By: Dr. Luis on 12-28-2021 Erythrocyte distribution width (RBC) [Entitic vol] 46.9 fL 35.1-43.9 [facility] Erythrocyte distribution width (RBC) [Ratio] 13.2 % 11.6-14.6 [facility] Immature granulocytes/100 WBC (Bld) 0.200 % 0.0-0.9 [facility] Comment on above: IG% - Immature Granu locytes (promyelocytes, myelocytes and metamyelocytes) > 1% indicates that a LEFT SHIFT is Present. MCH (RBC) [Entitic mass] 31.5 pg 27.0-32.0 [facility] Nucleated RBC/100 WBC (Bld) [Ratio] 0 % 0-5 [facility] MCHC Auto (RBC) [Mass/Vol]Or dered By: Dr. Luis on 12-28-2021 MCHC (RBC) [Mass/Vol] 32.7 g/dL 32-36 [facility] No Panel InformationOrdered By: Dr. Luis on 12-28-2021 Estimated GFR (MDRD) Amer 66 mL/min >60 [facility] Comment on above: GFR Calc Estimated GFR (MDRD) Non-Af Amer 54 mL/min >60 [facility] Comment on above: Non- GFR Calc Thyroid Stimulating Hormone (TSH) 0.74 uIU/mL 0.358-3.74 [facility] Vitamin D 25-Hydroxy 45.5 ng/mL [facility] Comment on above: Vitamin D 25(OH) Sta tus Range Deficiency <20 ng/mL (50nmol/L) Insufficiency 20 - 30 ng/mL (50 - 75 nmol/L) Sufficiency 30 - 100 ng/mL (75 - 250 nmol/L) Toxicity >100 ng/mL (>250 nmol/L) Platelets bldOrdered By: Dr. Luis on 12-28-2021 Platelets (Bld) [#/Vol] 247 10*3/uL 150-450 [facility] Serum or plasma albumin rosangela urement (mass/volume)Ordered By: Dr. Luis on 12-28-2021 Albumin [Mass/Vol] 3.2 g/dL 3.2-5.0 [facility] Serum or plasma albumin/glob ulin mass ratioOrdered By: Dr. Luis on 12-28-2021 Albumin/Globulin [Mass ratio] 1.1 {ratio} 0.9-2.4 [facility] Serum or plasma calcium rosangela urement (mass/volume)Ordered By: Dr. Luis on 12-28-2021 Calcium [Mass/Vol] 8.8 mg/dL 8.5-10.1 [facility] Serum or plasma creatinine m easurement (mass/volume)Ordered By: Dr. Luis on 12-28-2021 Creatinine [Mass/Vol] 1.06 mg/dL 0.55-1.02 [facility] Comment on above: The validity of the calculated GFR & GFRAA in patients over 70 years has not been determined. Clinical correlation is essential. Serum or plasma urea nitroge n measurement (mass/volume)Ordered By: Dr. Luis on 12-28-2021 Urea nitrogen [Mass/Vol] 9 mg/dL 7-18 [facility] Thin prep Papanicolaou smear with manual screeningOrdered By: Dr. Luis on 12-28-2021 Thin prep Papanicolaou smear with manual screening 13 U/L 15-37 [facility] Thin prep Papanicolaou smear with manual screening 4 5-15 [facility] - Microbiology an d Antimicrobial susceptibilityon 12-01-2021 SARS-CoV-2 (COVID-19) RNA ANTIONE+probe Ql (Unsp spec) Not detected Not Detect [facility] Work Phone: Comment on above: Normal Reference Ran ge: Not DetectedMethod:(RT-PCR) real-time reverse transcriptase PCRLuminex BRADY Instrument*The Food and Drug Administration (FDA) has issued an Emergency Use Authorization (EAU) for the [place] SARS-CoV-2 Assay for the rapid detection of [...] Auto (Unsp spec) [#/Vol] 1.71 10*3/uL 0.83-4.51 [facility] Work Phone: Basophil percentageon 2021 Basophils/100 WBC (Bld) 1.2 % 0-1 [facility] Work Phone: Bilirubin [Mass/Vol] 0.30 mg/dL 0.20-1.00 [facility] Work Phone: Comment on above: For patients on eltr ombopag therapy, use of Dimension [place] TBIL is not recommended. Chloride [Moles/Vol] 106 mmol/L 98-107 [facility] Work Phone: Eosinophils/100 WBC (Bld) 0.9 % 0-5 [facility] Work Phone: Glucose [Mass/Vol] 117 mg/dL 74-106 [facility] Work Phone: [phone] Comment on above: Fasting Glucose resu lt from 100 to 125 mg/dL suggests IMPAIRED HOMEOSTASIS per A.D.A. criteria. Neutrophils (Bld) [#/Vol] 1.2 10*3/uL 2.0-7.7 [facility] Work Phone: Neutrophils/100 WBC (Bld) 37.4 % 47-70 [facility] Work Phone: Potassium [Moles/Vol] 3.7 mmol/L 3.5-5.1 [facility] Work Phone: Protein [Mass/Vol] 6.4 g/dL 6.4-8.2 [facility] Work Phone: Sodium [Moles/Vol] 137 mmol/L 136-145 [facility] Work Phone: WBC (Bld) [#/Vol] 3.3 10*3/uL 4.4-11.0 [facility] Work Phone: Blood erythrocytes count (nu mber/volume)on 06-27-2021 RBC (Bld) [#/Vol] 3.82 10*6/uL 4.2-5.4 [facility] Work Phone: Blood hemoglobin measurement (mass/volume)on 06-27-2021 Hemoglobin (Bld) [Mass/Vol] 12.2 g/dL 12.0-15.0 [facility] Work Phone: Blood lymphocytes/100 leukoc yteson 06-27-2021 Lymphocytes/100 WBC (Bld) 51.7 % 19-41 [facility] Work Phone: Blood monocytes/100 leukocyt eson 06-27-2021 Monocytes/100 WBC (Bld) 8.5 % 0-10 [facility] Work Phone: Blood platelet mean volumeon 06-27-2021 Platelet mean volume (Bld) [Entitic vol] 10.5 fL 6.2-12.0 [facility] Work Phone: Determination of erythrocyte mean corpuscular volume (MCV)on 06-27-2021 MCV (RBC) [Entitic vol] 95.0 fL 81-99 [facility] Work Phone: [phone] Hematocrit Auto (Bld) [Volum e fraction]on 06-27-2021 Hematocrit (Bld) [Volume fraction] 36.3 % 37-47 [facility] Work Phone: [phone] Laboratory - Chemistry and C hemistry - challengeon 06-27-2021 ALP [Catalytic activity/Vol] 74 U/L 45-117 [facility] Work Phone: ALT [Catalytic activity/Vol] 27 U/L 13-56 [facility] Work Phone: [phone] CO2 [Moles/Vol] 25.0 mmol/L 21.0-32.0 [facility] Work Phone: [phone] Globulin (S) [Mass/Vol] 3.2 g/dL 2.2-4.2 [facility] Work Phone: [phone] Urea nitrogen/Creatinine [Mass ratio] 6.4 mg/mg 10-20 [facility] Work Phone: [phone] Laboratory - Hematology and Cell countson 06-27-2021 Erythrocyte distribution width (RBC) [Entitic vol] 44.8 fL 35.1-43.9 [facility] Work Phone: [phone] Erythrocyte distribution width (RBC) [Ratio] 12.9 % 11.6-14.6 [facility] Work Phone: [phone] Immature granulocytes/100 WBC (Bld) 0.300 % 0.0-0.9 [facility] Work Phone: [phone] Comment on above: IG% - Immature Granu locytes (promyelocytes, myelocytes and metamyelocytes) > 1% indicates that a LEFT SHIFT is Present. MCH (RBC) [Entitic mass] 31.9 pg 27.0-32.0 [facility] Work Phone: [phone] Nucleated RBC/100 WBC (Bld) [Ratio] 0.6 % 0-5 [facility] Work Phone: MCHC Auto (RBC) [Mass/Vol]on 06-27-2021 MCHC (RBC) [Mass/Vol] 33.6 g/dL 32-36 [facility] Work Phone: No Panel Informationon 06-27 Estimated GFR (MDRD) Amer 63 mL/min >60 [facility] Work Phone: Comment on above: GFR Calc Estimated GFR (MDRD) Non-Af Amer 52 mL/min >60 [facility] Work Phone: Comment on above: Non- GFR Calc Thyroid Stimulating Hormone (TSH) 0.50 uIU/mL 0.358-3.74 [facility] Work Phone: Vitamin D 25-Hydroxy 29.8 ng/mL [facility] Work Phone: Comment on above: Vitamin D 25(OH) Sta tus Range Deficiency <20 ng/mL (50nmol/L) Insufficiency 20 - 30 ng/mL (50 - 75 nmol/L) Sufficiency 30 - 100 ng/mL (75 - 250 nmol/L) Toxicity >100 ng/mL (>250 nmol/L) Platelets bldon 06-27-2021 Platelets (Bld) [#/Vol] 282 10*3/uL 150-450 [facility] Work Phone: Serum or plasma albumin rosangela urement (mass/volume)on 06-27-2021 Albumin [Mass/Vol] 3.2 g/dL 3.2-5.0 [facility] Work Phone: Serum or plasma albumin/glob ulin mass ratioon 06-27-2021 Albumin/Globulin [Mass ratio] 1.0 {ratio} 0.9-2.4 [facility] Work Phone: Serum or plasma calcium rosangela urement (mass/volume)on 06-27-2021 Calcium [Mass/Vol] 8.6 mg/dL 8.5-10.1 [facility] Work Phone: Serum or plasma creatinine m easurement (mass/volume)on 06-27-2021 Creatinine [Mass/Vol] 1.10 mg/dL 0.55-1.02 [facility] Work Phone: Comment on above: The validity of the calculated GFR & GFRAA in patients over 70 years has not been determined. Clinical correlation is essential. Serum or plasma urea nitroge n measurement (mass/volume)on 06-27-2021 Urea nitrogen [Mass/Vol] 7 mg/dL 7-18 [facility] Work Phone: Thin prep Papanicolaou smear with manual screeningon 06-27-2021 Thin prep Papanicolaou smear with manual screening 24 U/L 15-37 [facility] Work Phone: Thin prep Papanicolaou smear with manual screening 6 5-15 [facility] Work Phone: No Panel Information Influenza Types A,B Direct FA (STEPHANIE) [facility] Work Phone: Vital Signs Date Time Vital Sign Value Performing Clinician Facility 01-10-2025 20:37-0400 Body temperature 97.8 [degF] Dr. Harish Luis MD Work Phone: [facility] 01-10-2025 20:37-0400 Diastolic blood pressure 104 mm[Hg] Dr. Harish Luis MD Work Phone: [facility] 01-10-2025 20:37-0400 Heart rate 78 /min Dr. Harish Luis MD Work Phone: [facility] 01-10-2025 20:37-0400 Respiratory rate 16 /min Dr. Harish Luis MD Work Phone: [facility] 01-10-2025 20:37-0400 SaO2% (BldA) [Mass fraction] 99 % Dr. Harish Luis MD Work Phone: [facility] 01-10-2025 20:37-0400 Systolic blood pressure 154 mm[Hg] Dr. Harish Luis MD Work Phone: [facility] 01-10-2025 15:36-0400 Body height 154.[address] Harish Luis MD Work Phone: 6(889)018-104196 [place] [address] 01-10-2025 15:36-0400 Body mass index (BMI) [Ratio] 19.1 kg/m2 Dr. Harish Luis MD Work Phone: 1(242)825-844636 [place] [address] 01-10-2025 15:36-0400 Body weight 45.[address] Harish Luis MD Work Phone: 1(854)465-149136 [place] [address] 01-02-2025 20:38-0400 Body temperature 98.8 [degF] Dr. Harish Luis MD Work Phone: 1(678)034-491336 [place] [address] 01-02-2025 20:38-0400 Diastolic blood pressure 89 mm[Hg] Dr. Harish Luis MD Work Phone: 7(038)770-954336 [place] [address] 01-02-2025 20:38-0400 Heart rate 77 /min Dr. Harish Luis MD Work Phone: 4(478)226-844536 [place] [address] 01-02-2025 20:38-0400 Respiratory rate 16 /min Dr. Harish Luis MD Work Phone: 1(160)707-882336 [place] [address] 01-02-2025 20:38-0400 SaO2% (BldA) [Mass fraction] 95 % Dr. Harish Luis MD Work Phone: 9(420)874-300836 [place] [address] 01-02-2025 20:38-0400 Systolic blood pressure 126 mm[Hg] Dr. Harish Luis MD Work Phone: 9(794)010-680136 [place] [address] 10-02-2024 20:00-0400 Heart rate 98 /min Dr. Harish Luis MD Work Phone: 6(517)151-414636 [place] [address] 10-02-2024 20:00-0400 SaO2% (BldA) [Mass fraction] 98 % Dr. Harish Luis MD Work Phone: 4(188)515-552536 [place] [address] 10-02-2024 09:12-0400 Body temperature 97.6 [degF] Dr. Harish Luis MD Work Phone: 1(673)111-592436 [place] [address] 10-02-2024 09:12-0400 Diastolic blood pressure 95 mm[Hg] Dr. Harish Luis MD Work Phone: [facility] 10-02-2024 09:12-0400 Respiratory rate 16 /min Dr. Harish Luis MD Work Phone: [facility] 10-02-2024 09:12-0400 Systolic blood pressure 138 mm[Hg] Dr. Harish Luis MD Work Phone: 0(097)349-165536 [place] [address] 10-01-2024 11:33-0400 Body height 154.[address] Harish Luis MD Work Phone: 5(652)828-821936 [place] [address] 10-01-2024 11:33-0400 Body weight 46.[address] Harish Luis MD Work Phone: 5(587)521-670736 [place] [address] 09-30-2024 16:12-0400 Body mass index (BMI) [Ratio] 19.4 kg/m2 Dr. Harish Luis MD Work Phone: 4(028)908-924336 [place] [address] 09-29-2024 14:22-0400 Body temperature 97.6 [degF] Dr. Harish Luis MD Work Phone: 7(903)720-107036 [place] [address] 09-29-2024 14:22-0400 Diastolic blood pressure 69 mm[Hg] Dr. Harish Luis MD Work Phone: 5(886)771-973036 [place] [address] 09-29-2024 14:22-0400 Heart rate 100 /min Dr. Harish Luis MD Work Phone: 0(522)138-343636 [place] [address] 09-29-2024 14:22-0400 Respiratory rate 17 /min Dr. Harish Luis MD Work Phone: 0(707)555-418196 [place] [address] 09-29-2024 14:22-0400 SaO2% (BldA) [Mass fraction] 97 % Dr. Harish Luis MD Work Phone: 0(814)122-778396 [place] [address] 09-29-2024 14:22-0400 Systolic blood pressure 118 mm[Hg] Dr. Harish Luis MD Work Phone: 4(616)858-254296 [place] [address] 09-29-2024 06:00-0400 Body mass index (BMI) [Ratio] 19.2 kg/m2 Dr. Harish Luis MD Work Phone: [facility] 09-29-2024 06:00-0400 Body weight 46.[address] Harish Luis MD Work Phone: 1(430)210-473896 [place] [address] 09-28-2024 10:59-0400 Body height 154.[address] Harish Luis MD Work Phone: 6(913)488-298436 [place] [address] 09-27-2024 15:19-0400 Body temperature 97.5 [degF] Dr. Harish Luis MD Work Phone: 4(702)085-263436 [place] [address] 09-27-2024 15:19-0400 Diastolic blood pressure 86 mm[Hg] Dr. Harish Luis MD Work Phone: 3(864)111-876736 [place] [address] 09-27-2024 15:19-0400 Heart rate 79 /min Dr. Harish Luis MD Work Phone: 5(863)332-462736 [place] [address] 09-27-2024 15:19-0400 Respiratory rate 27 /min Dr. Harish Luis MD Work Phone: 7(345)852-502736 [place] [address] 09-27-2024 15:19-0400 SaO2% (BldA) [Mass fraction] 98 % Dr. Harish Luis MD Work Phone: 5(617)874-712436 [place] [address] 09-27-2024 15:19-0400 Systolic blood pressure 168 mm[Hg] Dr. Harish Luis MD Work Phone: 5(406)506-660636 [place] [address] 09-27-2024 12:26-0400 Body height 160.[address] Harish Luis MD Work Phone: 7(309)633-330736 [place] [address] 09-27-2024 12:26-0400 Body mass index (BMI) [Ratio] 18.8 kg/m2 Dr. Harish Luis MD Work Phone: 0(158)229-405336 [place] [address] 09-27-2024 12:26-0400 Body weight 48.[address] Harish Luis MD Work Phone: 9(059)799-443036 [place] [address] 09-22-2024 14:00-0400 Body temperature 97.3 [degF] Dr. Harish Luis MD Work Phone: [facility] 09-22-2024 14:00-0400 Diastolic blood pressure 71 mm[Hg] Dr. Harish Luis MD Work Phone: [facility] 09-22-2024 14:00-0400 Heart rate 103 /min Dr. Harish Luis MD Work Phone: 6(240)140-466696 [place] [address] 09-22-2024 14:00-0400 Respiratory rate 14 /min Dr. Harish Luis MD Work Phone: 9(761)596-995796 [place] [address] 09-22-2024 14:00-0400 SaO2% (BldA) [Mass fraction] 97 % Dr. Harish Luis MD Work Phone: 2(316)635-835096 [place] [address] 09-22-2024 14:00-0400 Systolic blood pressure 121 mm[Hg] Dr. Harihs Luis MD Work Phone: 3(277)614-241236 [place] [address] 09-22-2024 10:12-0400 Body height 160.[address] Harish Luis MD Work Phone: 0(336)213-854496 [place] [address] 09-22-2024 10:12-0400 Body weight 47.[address] Harish Luis MD Work Phone: 5(370)119-473336 [place] [address] 09-22-2024 03:01-0400 Body mass index (BMI) [Ratio] 18.6 kg/m2 Dr. Harish Luis MD Work Phone: 7(744)502-069736 [place] [address] 09-21-2024 19:39-0400 Body temperature 99.3 [degF] Dr. Harish Luis MD Work Phone: 6(621)317-695396 [place] [address] 09-21-2024 19:39-0400 Diastolic blood pressure 74 mm[Hg] Dr. Harish Luis MD Work Phone: 2(413)220-425696 [place] [address] 09-21-2024 19:39-0400 Heart rate 86 /min Dr. Harish Luis MD Work Phone: [facility] 09-21-2024 19:39-0400 Respiratory rate 24 /min Dr. Harish Luis MD Work Phone: 9(984)518-395596 [place] [address] 09-21-2024 19:39-0400 SaO2% (BldA) [Mass fraction] 97 % Dr. Harish Luis MD Work Phone: 1(042)318-433096 [place] [address] 09-21-2024 19:39-0400 Systolic blood pressure 140 mm[Hg] Dr. Harish Luis MD Work Phone: 1(401)014-049196 [place] [address] 09-21-2024 18:01-0400 Body height 157.[address] Harish Luis MD Work Phone: 8(514)551-746796 [place] [address] 09-21-2024 18:01-0400 Body mass index (BMI) [Ratio] 20.4 kg/m2 Dr. Harish Luis MD Work Phone: 8(510)591-146996 [place] [address] 09-21-2024 18:01-0400 Body weight 50.[address] Harish Luis MD Work Phone: 5(308)534-438536 [place] [address] 08-29-2024 07:54-0400 Body temperature 97.1 [degF] Dr. Harish Luis MD Work Phone: 1(645)191-138236 [place] [address] 08-29-2024 07:54-0400 Diastolic blood pressure 89 mm[Hg] Dr. Harish Luis MD Work Phone: 1(104)226-137136 [place] [address] 08-29-2024 07:54-0400 Heart rate 80 /min Dr. Harish Luis MD Work Phone: 6(429)398-921536 [place] [address] 08-29-2024 07:54-0400 Respiratory rate 18 /min Dr. Harish Luis MD Work Phone: 1(511)030-563136 [place] [address] 08-29-2024 07:54-0400 SaO2% (BldA) [Mass fraction] 93 % Dr. Harish Luis MD Work Phone: 3(062)685-408396 [place] [address] 08-29-2024 07:54-0400 Systolic blood pressure 141 mm[Hg] Dr. Harish Luis MD Work Phone: 2(036)142-586436 [place] [address] 08-28-2024 10:15-0400 Body height 157.[address] Harish Luis MD Work Phone: 2(192)760-073636 [place] [address] 08-28-2024 10:15-0400 Body weight 48.[address] Harish Luis MD Work Phone: 6(187)756-628396 [place] [address] 08-27-2024 20:46-0400 Body mass index (BMI) [Ratio] 19.7 kg/m2 Dr. Harish Luis MD Work Phone: 1(929)293-090896 [place] [address] 08-27-2024 20:00-0400 Diastolic blood pressure 94 mm[Hg] Dr. Harish Luis MD Work Phone: 8(250)691-964296 [place] [address] 08-27-2024 20:00-0400 Heart rate 103 /min Dr. Harish Luis MD Work Phone: 8(760)055-433096 [place] [address] 08-27-2024 20:00-0400 Respiratory rate 30 /min Dr. Harish Luis MD Work Phone: 8(926)579-724136 [place] [address] 08-27-2024 20:00-0400 Systolic blood pressure 142 mm[Hg] Dr. Harish Luis MD Work Phone: 2(880)096-425296 [place] [address] 08-27-2024 18:05-0400 Body temperature 100.9 [degF] Dr. Harish Luis MD Work Phone: 4(514)143-945996 [place] [address] 08-27-2024 18:05-0400 SaO2% (BldA) [Mass fraction] 93 % Dr. Harish Luis MD Work Phone: 6(402)732-613296 [place] [address] 08-27-2024 15:36-0400 Body height 157.[address] Harish Luis MD Work Phone: 1(521)520-719196 [place] [address] 08-27-2024 15:36-0400 Body mass index (BMI) [Ratio] 19.8 kg/m2 Dr. Harish Luis MD Work Phone: 0(260)104-698796 [place] [address] 08-27-2024 15:36-0400 Body weight [address] Harish Luis MD Work Phone: 3(454)457-236296 [place] [address] 06-04-2024 15:44-0400 Body mass index (BMI) [Ratio] 20.1 kg/m2 Dr. Harish Lusi MD Work Phone: 2(915)520-520996 [place] [address] 06-04-2024 15:44-0400 Body weight [address] Harish Luis MD Work Phone: [facility] 06-04-2024 15:08-0400 Body height 157.[address] Harish Luis MD Work Phone: [facility] 06-04-2024 15:08-0400 Body temperature 97 [degF] Dr. Harish Luis MD Work Phone: [facility] 06-04-2024 15:08-0400 Diastolic blood pressure 81 mm[Hg] Dr. Harish Luis MD Work Phone: [facility] 06-04-2024 15:08-0400 Heart rate 106 /min Dr. Harish Luis MD Work Phone: [facility] 06-04-2024 15:08-0400 Respiratory rate 19 /min Dr. Harish Luis MD Work Phone: [facility] 06-04-2024 15:08-0400 SaO2% (BldA) [Mass fraction] 98 % Dr. Harish Luis MD Work Phone: [facility] 06-04-2024 15:08-0400 Systolic blood pressure 130 mm[Hg] Dr. Harish Luis MD Work Phone: [facility] 07-30-2023 18:02-0400 Body temperature 97.6 [degF] [facility] 07-30-2023 18:02-0400 Diastolic blood pressure 63 mm[Hg] [facility] 07-30-2023 18:02-0400 Heart rate 90 /min [facility] 07-30-2023 18:02-0400 Inhaled oxygen flow rate 3 L/min [facility] 07-30-2023 18:02-0400 Respiratory rate 17 /min [facility] 07-30-2023 18:02-0400 SaO2% (BldA) [Mass fraction] 95 % [facility] 07-30-2023 18:02-0400 Systolic blood pressure 113 mm[Hg] [facility] 07-30-2023 13:51-0400 Body mass index (BMI) [Ratio] 22.4 kg/m2 [facility] 07-30-2023 13:51-0400 Body weight 55.6 kg [facility] 07-30-2023 13:35-0400 Body height 157.48 cm [facility] 07-24-2023 22:13-0400 Body temperature 97.1 [degF] [facility] 07-24-2023 22:13-0400 Diastolic blood pressure 77 mm[Hg] [facility] 07-24-2023 22:13-0400 Heart rate 61 /min [facility] 07-24-2023 22:13-0400 Respiratory rate 18 /min [facility] 07-24-2023 22:13-0400 SaO2% (BldA) [Mass fraction] 93 % [facility] 07-24-2023 22:13-0400 Systolic blood pressure 137 mm[Hg] [facility] 07-24-2023 19:51-0400 Body height 157.48 cm [facility] 03-17-2023 13:31-0500 Body height 160.02 cm [facility] 03-17-2023 13:31-0500 Body temperature 98 [degF] [facility] 03-17-2023 13:31-0500 Diastolic blood pressure 73 mm[Hg] [facility] 03-17-2023 13:31-0500 Heart rate 87 /min [facility] 03-17-2023 13:31-0500 Respiratory rate 14 /min [facility] 03-17-2023 13:31-0500 SaO2% (BldA) [Mass fraction] 97 % [facility] 03-17-2023 13:31-0500 Systolic blood pressure 128 mm[Hg] [facility] 11-04-2022 09:15-0400 Body temperature 98.2 [degF] Dr. Harish Luis Work Phone: [facility] 11-04-2022 09:15-0400 Diastolic blood pressure 75 mm[Hg] Dr. Harish Luis Work Phone: 0(727)128-594496 [place] [address] 11-04-2022 09:15-0400 Heart rate 88 /min Dr. Harish Luis Work Phone: 4(074)648-162196 [place] [address] 11-04-2022 09:15-0400 Respiratory rate 14 /min Dr. Harish Luis Work Phone: 5(780)269-187036 [place] [address] 11-04-2022 09:15-0400 SaO2% (BldA) [Mass fraction] 96 % Dr. Harish Luis Work Phone: 3(041)428-268696 [place] [address] 11-04-2022 09:15-0400 Systolic blood pressure 137 mm[Hg] Dr. Harish Luis Work Phone: 5(527)764-069936 [place] [address] 11-03-2022 12:44-0400 Body height 160.[address] Harish Luis Work Phone: 8(741)927-186936 [place] [address] 11-03-2022 12:44-0400 Body weight 48.[address] Harish Luis Work Phone: 5(995)275-944236 [place] [address] 11-03-2022 10:59-0400 Body mass index (BMI) [Ratio] 18.9 kg/m2 Dr. Harish Luis Work Phone: 5(448)450-243036 [place] [address] 11-01-2022 11:00-0400 Diastolic blood pressure 54 mm[Hg] Dr. Harish Luis Work Phone: 0(880)883-143036 [place] [address] 11-01-2022 11:00-0400 Systolic blood pressure 110 mm[Hg] Dr. Harish Luis Work Phone: 0(754)056-230536 [place] [address] 11-01-2022 10:01-0400 Body temperature 98.3 [degF] Dr. Harish Luis Work Phone: 2(748)676-216536 [place] [address] 11-01-2022 10:01-0400 Heart rate 69 /min Dr. Harish Luis Work Phone: 6(557)295-685996 [place] [address] 11-01-2022 10:01-0400 Respiratory rate 13 /min Dr. Harish Luis Work Phone: 6(030)700-377496 [place] [address] 11-01-2022 10:01-0400 SaO2% (BldA) [Mass fraction] 99 % Dr. Harish Luis Work Phone: [facility] 11-01-2022 07:48-0400 Body height 159.[address] Harish Luis Work Phone: [facility] 11-01-2022 07:48-0400 Body mass index (BMI) [Ratio] 19.7 kg/m2 Dr. Harish Luis Work Phone: [facility] 11-01-2022 07:48-0400 Body weight 50.[address] Harish Luis Work Phone: [facility] 10-14-2022 08:16-0400 SaO2% (BldA) [Mass fraction] 95 % Dr. Harish Luis Work Phone: [facility] 10-14-2022 04:08-0400 Body mass index (BMI) [Ratio] 19.4 kg/m2 Dr. Harish Luis Work Phone: [facility] 10-14-2022 04:08-0400 Body weight 49.[address] Harish Luis Work Phone: [facility] 10-14-2022 04:06-0400 Body temperature 98.6 [degF] Dr. Harish Luis Work Phone: [facility] 10-14-2022 04:06-0400 Diastolic blood pressure 62 mm[Hg] Dr. Harish Luis Work Phone: [facility] 10-14-2022 04:06-0400 Heart rate 79 /min Dr. Harish Luis Work Phone: [facility] 10-14-2022 04:06-0400 Respiratory rate 16 /min Dr. Harish Luis Work Phone: [facility] 10-14-2022 04:06-0400 Systolic blood pressure 105 mm[Hg] Dr. Harish Luis Work Phone: [facility] 10-13-2022 15:38-0400 Body height 160.[address] Harish Luis Work Phone: [facility] 10-13-2022 14:58-0400 Body temperature 98.1 [degF] Dr. Harish Luis Work Phone: 4(471)547-303896 [place] [address] 10-13-2022 14:58-0400 Diastolic blood pressure 67 mm[Hg] Dr. Harish Luis Work Phone: 8(924)848-086596 [place] [address] 10-13-2022 14:58-0400 Heart rate 74 /min Dr. Harish Luis Work Phone: 8(313)450-689696 [place] [address] 10-13-2022 14:58-0400 Respiratory rate 16 /min Dr. Harish Luis Work Phone: 8(562)915-384696 [place] [address] 10-13-2022 14:58-0400 SaO2% (BldA) [Mass fraction] 95 % Dr. Harish Luis Work Phone: 4(813)402-875696 [place] [address] 10-13-2022 14:58-0400 Systolic blood pressure 121 mm[Hg] Dr. Harish Luis Work Phone: 6(590)741-047196 [place] [address] 10-13-2022 10:04-0400 Body height 160.[address] Harish Luis Work Phone: 5(804)218-420836 [place] [address] 10-13-2022 10:04-0400 Body mass index (BMI) [Ratio] 18.6 kg/m2 Dr. Harish Luis Work Phone: 3(529)595-035096 [place] [address] 10-13-2022 10:04-0400 Body weight 47.[address] Harish Luis Work Phone: 7(088)654-045896 [place] [address] 08-26-2022 04:35-0400 Diastolic blood pressure 79 mm[Hg] Dr. Harish Luis Work Phone: 4(267)839-897196 [place] [address] 08-26-2022 04:35-0400 Heart rate 69 /min Dr. Harish Luis Work Phone: 6(881)932-698596 [place] [address] 08-26-2022 04:35-0400 Respiratory rate 15 /min Dr. Harish Luis Work Phone: 3(719)420-794096 [place] [address] 08-26-2022 04:35-0400 SaO2% (BldA) [Mass fraction] 95 % Dr. Harish Luis Work Phone: [facility] 08-26-2022 04:35-0400 Systolic blood pressure 143 mm[Hg] Dr. Harish Luis Work Phone: [facility] 08-26-2022 02:42-0400 Body mass index (BMI) [Ratio] 19.6 kg/m2 Dr. Harish Luis Work Phone: [facility] 08-26-2022 02:42-0400 Body temperature 97.5 [degF] Dr. Harish Luis Work Phone: 4(442)635-089796 [place] [address] 08-26-2022 02:42-0400 Body weight 50.[address] Harish Luis Work Phone: 6(481)165-915096 [place] [address] 08-03-2022 15:30-0400 Body temperature 98.1 [degF] Dr. Harish Luis Work Phone: 0(274)719-571896 [place] [address] 08-03-2022 15:30-0400 Diastolic blood pressure 81 mm[Hg] Dr. Harish Luis Work Phone: 7(884)151-765396 [place] [address] 08-03-2022 15:30-0400 Heart rate 66 /min Dr. Harish Luis Work Phone: [facility] 08-03-2022 15:30-0400 Respiratory rate 16 /min Dr. Harish Luis Work Phone: [facility] 08-03-2022 15:30-0400 SaO2% (BldA) [Mass fraction] 93 % Dr. Harish Luis Work Phone: [facility] 08-03-2022 15:30-0400 Systolic blood pressure 133 mm[Hg] Dr. Harish Luis Work Phone: [facility] 08-03-2022 12:57-0400 Body mass index (BMI) [Ratio] 21.4 kg/m2 Dr. Harish Luis Work Phone: [facility] 08-03-2022 11:31-0400 Inhaled oxygen flow rate 2 L/min Dr. Harish Luis Work Phone: [facility] 08-02-2022 14:18-0400 Body weight 54.[address] Harish Luis Work Phone: 9(504)166-671096 [place] [address] 07-29-2022 09:48-0400 Body temperature 97.2 [degF] Dr. Harish Luis Work Phone: 3(995)049-171796 [place] [address] 07-29-2022 09:48-0400 Diastolic blood pressure 78 mm[Hg] Dr. Harish Luis Work Phone: 8(982)016-891896 [place] [address] 07-29-2022 09:48-0400 Heart rate 90 /min Dr. Harish Luis Work Phone: 3(459)967-280936 [place] [address] 07-29-2022 09:48-0400 Inhaled oxygen flow rate 4 L/min Dr. Harish Luis Work Phone: 9(195)527-088236 [place] [address] 07-29-2022 09:48-0400 Respiratory rate 20 /min Dr. Harish Luis Work Phone: 8(260)593-381136 [place] [address] 07-29-2022 09:48-0400 SaO2% (BldA) [Mass fraction] 95 % Dr. Harish Luis Work Phone: 0(050)710-122736 [place] [address] 07-29-2022 09:48-0400 Systolic blood pressure 112 mm[Hg] Dr. Harish Luis Work Phone: 6(708)925-107636 [place] [address] 07-29-2022 07:43-0400 Body height 160.[address] Harish Luis Work Phone: 5(275)750-654696 [place] [address] 07-29-2022 07:43-0400 Body mass index (BMI) [Ratio] 24.2 kg/m2 Dr. Harish Luis Work Phone: 1(749)460-787036 [place] [address] 07-29-2022 07:43-0400 Body weight 62.[address] Harish Luis Work Phone: 5(978)415-017936 [place] [address] 04-27-2022 08:40-0500 Body temperature 97.5 [degF] Dr. Harish Lius Work Phone: [facility] 04-27-2022 08:40-0500 Diastolic blood pressure 62 mm[Hg] Dr. Harish Luis Work Phone: [facility] 04-27-2022 08:40-0500 Heart rate 79 /min Dr. Harish Luis Work Phone: [facility] 04-27-2022 08:40-0500 Respiratory rate 16 /min Dr. Harish Luis Work Phone: [facility] 04-27-2022 08:40-0500 SaO2% (BldA) [Mass fraction] 96 % Dr. Harish Luis Work Phone: [facility] 04-27-2022 08:40-0500 Systolic blood pressure 105 mm[Hg] Dr. Harish Luis Work Phone: [facility] 04-27-2022 06:26-0500 Body height 160.[address] Harish Luis Work Phone: [facility] 04-27-2022 06:26-0500 Body mass index (BMI) [Ratio] 18.3 kg/m2 Dr. Harish Luis Work Phone: [facility] 04-27-2022 06:26-0500 Body weight [address] Harish Luis Work Phone: [facility] Encounters Encounter Date Encounter Type Care Provider Facility Start: 01-10-2025 End: 01-10-2025 Emergency department patient visit No Primary Care Physician Facility:[facility] Start: 01-08-2025 End: 01-08-2025 [facility] Facility:[facility] Start: 01-02-2025 End: 01-02-2025 Dr. Huber Ballard MD -Emergency [facility] Work Phone: Start: 01-02-2025 End: 01-02-2025 Emergency department patient visit Dr. 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 Harish Luis MD -Transitional Care U nit Start: 09-29-2024 ambulatory Gladys Elizalde ty:[facility] Start: 09-29-2024 End: 10-03-2024 Evaluation and management of inpatient Dr. Harish Luis MD Work Phone: -Transitional Care Unit Start: 09-29-2024 Non-patient / Non-visit Dr. Ricardo hess MD -[facility] Work Phone: Start: 09-29-2024 Dr. Ricardo Padilla MD -[facility] Work Phone: Start: 09-28-2024 Non-patient / Non-visit Dr. Anastasia Khan MD -[facility] Work Phone: Start: 09-28-2024 Dr. Anastasia Khan MD - [facility] Work Phone: Start: 09-27-2024 End: 09-29-2024 Evaluation and management of inpatient Dr. Anastasia Khan MD -Medical Surgical 3 Work Phone: Start: 09-27-2024 End: 09-29-2024 ambulatory Anastasia Nair [place] Facility:[facility] Start: 09-27-2024 Non-patient / Non-visit Dr. Anastasia Khan MD -[facility] Work Phone: Start: 09-27-2024 End: 09-29-2024 Dr. Ricardo Padilla MD -Medical Surgical 3 Work Phone: Start: 09-22-2024 Non-patient / Non-visit Dr. Anastasia Khan MD -[facility] Work Phone: Start: 09-22-2024 Dr. Anastasia Khan MD - [facility] Work Phone: Start: 09-21-2024 End: 09-22-2024 ambulatory Anastasia Khan Facility:[facility] Start: 09-21-2024 End: 09-22-2024 Evaluation and management of inpatient Dr. Ricardo Justice -[facility] Unit Work Phone: Start: 09-21-2024 End: 09-22-[address] Harish Luis MD Work Phone: -Progressive Care Unit Start: 09-21-2024 End: 09-22-2024 Dr. Anastasia Khan MD -[facility] Work Phone: Start: 08-29-2024 Non-patient / [facility] Work Phone: Start: 08-29-2024 Dr. Christofer Espino [facility] Work Phone: Start: 08-28-2024 Non-patient / Non-visit Dr. Song [facility] Work Phone: Start: 08-28-2024 Dr. Christofer Espino [facility] Work Phone: Start: 08-27-2024 ambulatory [facility] Facility:[facility] Start: 08-27-2024 End: 08-29-2024 Evaluation and management of inpatient Dr. Christofer Espino DO [facility] Unit Work Phone: Start: 08-27-2024 End: 08-29-2024 Dr. Christofer Espino [facility] Unit Work Phone: Start: 07-15-2024 End: 07-15-[address] Harish Luis MD -Cat Scan [facility] Work Phone: Start: 07-15-2024 End: 07-15-2024 Dr. Harish Luis MD -Cat Scan [facility] Work Phone: Start: 07-15-2024 End: 07-15-2024 ambulatory [facility] Facility:[facility] Start: 06-04-2024 End: 06-04-2024 Emergency department patient visit Dr. Harish Luis MD Work Phone: -Emergency Department Work Phone: Start: 03-31-2024 End: 03-31-[address] Harish Luis MD -Cat Scan, [facility] Work Phone: Start: 03-31-2024 End: 03-31-2024 ambulatory [facility] Facility:[facility] Start: 02-19-2024 End: 02-19-[address] Harish Luis MD -Laboratory, Phy Office 3rd Flr Start: 02-19-2024 End: 02-19-2024 ambulatory [facility] Facility:[facility] Start: 07-30-2023 Evaluation and management of inpatient [facility]-Progressive Care Unit Work Phone: Start: 07-27-2023 Patient encounter procedure [facility]-Radiology, [facility] Work Phone: Start: 07-24-2023 End: 07-24-2023 Emergency department patient visit [facility]-Emergency Department Work Phone: Start: 07-11-2023 End: 07-11-2023 ambulatory [facility] Work Phone: Start: 07-11-2023 End: 07-11-2023 Patient encounter procedure [facility]-Laboratory, Phy Office 3rd Flr Start: 06-27-2023 End: 06-27-2023 ambulatory [facility] Work Phone: Start: 06-27-2023 End: 06-27-2023 Patient encounter procedure [facility]-Laboratory, Phy Office 3rd Flr Start: 03-17-2023 End: 03-17-2023 Emergency department patient visit [facility]-Emergency Department Work Phone: Start: 01-01-2023 End: 01-01-[address] Harish Luis Work Phone: [facility] Work Phone: Start: 01-01-2023 End: 01-01-[address] Harish Luis Work Phone: [facility]-Laboratory, Phy Office 3rd Flr Start: 11-04-2022 Non-patient / Non-visit Dr. Levar Luis Work Phone: [facility] Work Phone: Start: 11-03-2022 Non-patient / Non-visit Dr. Levar Luis Work Phone: [facility] Start: 11-03-2022 Non-patient / Non-visit Dr. Levar Luis Work Phone: [facility] Work Phone: Start: 11-03-2022 End: 11-03-2022 Non-patient / Non-visit Dr. Harish Luis Work Phone: [facility] Work Phone: Start: 11-02-2022 Non-patient / Non-visit Dr. Levar Luis Work Phone: [facility] Start: 11-02-2022 Non-patient / Non-visit Dr. Levar Luis Work Phone: [facility] Work Phone: Start: 11-01-2022 Non-patient / Non-visit Dr. Levar Luis Work Phone: [facility] Work Phone: Start: 11-01-2022 End: 11-04-2022 Evaluation and management of inpatient Dr. Harish Luis Work Phone: [facility]-Progressive Care Unit Work Phone: Start: 10-14-2022 Non-patient / Non-visit Dr. Levar Luis Work Phone: [facility] Start: 10-13-2022 Non-patient / Non-visit Dr. Levar Luis Work Phone: [facility] Work Phone: Start: 10-13-2022 End: 10-14-2022 Evaluation and management of inpatient Dr. Harish Luis Work Phone: [facility]-Medical Surgical 3 Work Phone: Start: 10-12-2022 End: 10-12-[address] Harish Luis Work Phone: [facility] Work Phone: Start: 10-12-2022 End: 10-12-[address] Harish Luis Work Phone: [facility] Work Phone: Start: 08-26-2022 End: 08-26-2022 Emergency department patient visit Dr. Harish Luis Work Phone: [facility]-Emergency Department Work Phone: Start: 08-03-2022 Non-patient / Non-visit Dr. Levar Luis Work Phone: [facility] Start: 08-02-2022 Non-patient / Non-visit Dr. Levar Luis Work Phone: [facility] Start: 08-02-2022 Non-patient / Non-visit Dr. Levar Luis Work Phone: [facility] Work Phone: Start: 08-01-2022 Non-patient / Non-visit Dr. Levar Luis Work Phone: [facility] Start: 08-01-2022 Non-patient / Non-visit Dr. Levar Luis Work Phone: [facility] Work Phone: Start: 07-31-2022 Non-patient / Non-visit Dr. Levar Luis Work Phone: [facility] Work Phone: Start: 07-30-2022 Non-patient / Non-visit Dr. Levar Luis Work Phone: [facility] Work Phone: Start: 07-29-2022 Non-patient / Non-visit Dr. Levar Luis Work Phone: [facility] Work Phone: Start: 07-29-2022 End: 08-03-2022 Evaluation and management of inpatient Dr. Harish Luis Work Phone: [facility]-Progressive Care Unit Start: 07-06-2022 End: 07-06-[address] Harish Luis Work Phone: [facility] Work Phone: Start: 07-06-2022 End: 07-06-[address] Harish Luis Work Phone: [facility] Start: 06-28-2022 End: 06-28-[address] Harish Luis Work Phone: [facility]-Pulmonary Services/Neurology Start: 04-27-2022 End: 04-27-2022 Admission to same day surgery center Dr[facility] Harish Luis [facility] Start: 04-24-2022 End: 04-24-2022 Non-patient / Non-visit Dr. Harish Luis Work Phone: [facility] Start: 04-10-2022 End: 04-10-2022 ambulatory [facility] Work Phone: Start: 04-10-2022 End: 04-10-2022 Patient encounter procedure [facility]-Pulmonary Services/Neurology Start: 03-31-2022 End: 03-31-2022 ambulatory [facility] Work Phone: Start: 03-31-2022 End: 03-31-2022 Patient encounter procedure [facility]-Pulmonary Services/Neurology Start: 12-28-2021 End: 12-28-2021 ambulatory [facility] Work Phone: Start: 12-28-2021 End: 12-28-2021 Patient encounter procedure [facility]-Laboratory, Phy Office 3rd Flr Start: 12-01-2021 End: 12-01-2021 ambulatory [facility] Work Phone: Start: 12-01-2021 End: 12-01-2021 Patient encounter procedure [facility]-Pulmonary Services/Neurology Start: 06-27-2021 End: 06-27-2021 Patient encounter procedure [facility]-Laboratory, Phy Office 3rd Flr Procedures Date Procedure Procedure Detail Performing Clinician Start: 01-10-2025 Benzodiazepine measurement, urine Dr. Levar uLis MD Work Phone: Start: 01-10-2025 Cocaine measurement, urine Dr. Harish Luis MD Work Phone: Start: 01-10-2025 Methadone measurement, urine Dr. Harish farfan MD Work Phone: Start: 01-10-[address] Harish neal MD Work Phone: Start: 01-10-2025 Urine microscopy: red cells Dr. Harish Luis MD Work Phone: Start: 01-10-[address] Harish Luis MD Work Phone: Start: 01-10-2025 Urnls dip stick/tablet reagent auto microscopy Dr. Harish Luis MD Work Phone: Start: 01-10-[address] Harish sanderson MD Work Phone: Start: 01-10-2025 Mean corpuscular hemoglobin concentration determination Dr. Harish Luis MD Work Phone: Start: 01-10-[address] Harish Luis MD Work Phone: Start: 01-10-2025 Nucleated red blood cell count procedure Dr. Harish Luis MD Work Phone: Start: 01-10-2025 Platelet mean volume determination Dr. Connor Luis MD Work Phone: Start: 01-02-2025 CT of head without contrast Dr. Harish Luis MD Work Phone: Start: 01-02-2025 Mean corpuscular hemoglobin concentration determination Dr. Harish Luis MD Work Phone: Start: 01-02-[address] Harish Luis MD Work Phone: Start: 01-02-2025 Nucleated red blood cell count procedure Dr. Harish Luis MD Work Phone: Start: 01-02-2025 Platelet mean volume determination Dr. Connor Luis MD Work Phone: Start: 10-01-[address] Harish Luis MD [...] Harish Luis MD Work Phone: Start: 09-30-[address] Harish Luis MD Work Phone: [...] Harish Luis MD Work Phone: Start: 09-29-[address] Harish Luis MD Work Phone: [...] Harish Luis MD Work Phone: Start: 09-22-[address] Harish Luis MD Work Phone: Start: 09-22-2024 Nucleated red blood cell count procedure Dr. Harish Lius MD Work Phone: Start: 09-22-2024 Platelet mean volume determination Dr. Connor Luis MD Work Phone: Start: 09-22-2024 Serum inorganic phosphate measurement Dr. Harish Luis MD Work Phone: Start: 09-22-2024 Total cholesterol:HDL ratio measurement Dr. Harish Luis MD Work Phone: Start: 09-22-[address] Harish Rivero Work Phone: Start: 09-21-2024 CT of chest without contrast Dr. Harish farfan MD Work Phone: Start: 09-21-2024 X-ray of chest, PA and lateral views Dr. Harish Luis MD Work Phone: Start: 09-21-[address] Harish Luis MD Work Phone: Start: 09-21-[address] Harish Luis MD Work Phone: [...] Treatment Date Care Activity Detail Author Start: 01-10-2025 [facility] Start: 01-10-2025 CT of head without contrast [facility] Start: 01-10-2025 Suicide precautions [facility] Start: 01-10-2025 End: 01-10-2025 -Emergency Department Work Phone: Start: 01-10-2025 Urine culture [facility] Start: 01-02-2025 [facility] Start: 10-06-2024 Developing a treatment plan [facility] Start: 10-03-2024 Patient discharge [facility] Start: 10-03-2024 Development of care plan [facility] Start: 10-02-2024 [facility] Start: 10-02-2024 [facility] Start: 10-01-2024 Speech therapy assessment [facility] Start: 10-01-2024 Referral to gastroenterology service [facility] Start: 10-01-2024 Patient referral to dietitian [facility] Start: 09-30-2024 Speech therapy management [facility] Start: 09-30-2024 Development of care plan [facility] Start: 09-30-2024 Developing a treatment plan [facility] Start: 09-30-2024 Serum inorganic phosphate measurement [facility] Start: 09-29-2024 Speech therapy assessment [facility] Start: 09-29-2024 Admission procedure [facility] Start: 09-29-2024 Introduction of urinary catheter [facility] Start: 09-29-2024 Measuring intake and output [facility] Start: 09-29-2024 Patient referral to dietitian [facility] Start: 09-29-2024 Referral for physical therapy [facility] Start: 09-29-2024 Referral to occupational therapist [facility] Start: 09-29-2024 Referral to service [facility] Start: 09-29-2024 Vital signs measurements [facility] Start: 09-29-2024 End: 09-29-2024 [facility] Start: 09-29-2024 Following clinical pathway protocol [facility] Start: 09-29-2024 Patient discharge [facility] Start: 09-28-2024 Consultation [facility] Start: 09-27-2024 Following clinical pathway protocol [facility] Start: 09-27-2024 Aspiration precautions [facility] Start: 09-27-2024 Assessment of risk of venous thromboembolism [facility] Start: 09-27-2024 Fall prevention [facility] Start: 09-27-2024 Incentive spirometry [facility] Start: 09-27-2024 Inhalation therapy procedure [facility] Start: 09-27-2024 Insertion of catheter into peripheral vein [facility] Start: 09-27-2024 Introduction of urinary catheter [facility] Start: 09-27-2024 Measuring intake and output [facility] Start: 09-27-2024 Oxygen therapy [facility] Start: 09-27-2024 Providing care according to standard [facility] Start: 09-27-2024 Provision of activity privileges [facility] Start: 09-27-2024 Referral for physical therapy [facility] Start: 09-27-2024 Referral to occupational therapist [facility] Start: 09-27-2024 Referral to service [facility] Start: 09-27-2024 Speech therapy assessment [facility] Start: 09-27-2024 Tobacco use cessation education [facility] Start: 09-27-2024 [facility] Start: 09-27-2024 Verification routine [facility] Start: 09-27-2024 Admission procedure [facility] Start: 09-27-2024 Hospital admission, emergency, from emergency room, medical nature [facility] Start: 09-27-2024 Consultation [facility] Start: 09-27-2024 Patient referral to dietitian [facility] Start: 09-27-2024 [facility] Start: 09-23-2024 Serum inorganic phosphate measurement [facility] Start: 09-22-2024 Patient discharge [facility] Start: 09-22-2024 Care planning and problem solving actions [facility] Start: 09-21-2024 Application of intermittent pneumatic compression device [facility] Start: 09-21-2024 Following clinical pathway protocol [facility] Start: 09-21-2024 Aspiration precautions [facility] Start: 09-21-2024 Assessment of risk of venous thromboembolism [facility] Start: 09-21-2024 Incentive spirometry [facility] Start: 09-21-2024 Inhalation therapy procedure [facility] Start: 09-21-2024 Insertion of catheter into peripheral vein [facility] Start: 09-21-2024 Measuring intake and output [facility] Start: 09-21-2024 Oxygen therapy [facility] Start: 09-21-2024 Providing care according to standard [facility] Start: 09-21-2024 Provision of activity privileges [facility] Start: 09-21-2024 Referral for physical therapy [facility] Start: 09-21-2024 Referral to occupational therapist [facility] Start: 09-21-2024 Referral to service [facility] Start: 09-21-2024 Speech therapy assessment [facility] Start: 09-21-2024 [facility] Start: 09-21-2024 Electrocardiographic procedure [facility] Start: 09-21-2024 Thyroid stimulating hormone measurement [facility] Start: 09-21-2024 Verification routine [facility] Start: 09-21-2024 Admission procedure [facility] Start: 09-21-2024 Hospital admission, emergency, from emergency room, medical nature [facility] Start: 09-21-2024 CT of chest without contrast Chest without Contrast [facility] Start: 09-21-2024 End: 09-21-2024 [facility] Start: 09-21-2024 Consultation [facility] Start: 09-21-2024 Bacteria identified in Blood by Culture Blood Culture [facility] Start: 09-21-2024 Consultation [facility] Start: 09-21-2024 Patient referral to dietitian [facility] Start: 08-29-2024 Patient discharge [facility] Start: 08-28-2024 Referral to gastroenterology service [facility] Start: 08-27-2024 Following clinical pathway protocol [facility] Start: 08-27-2024 Ambulation without limitation [facility] Start: 08-27-2024 Assessment of risk of venous thromboembolism [facility] Start: 08-27-2024 Insertion of catheter into peripheral vein [facility] Start: 08-27-2024 Oxygen therapy [facility] Start: 08-27-2024 Providing care according to standard [facility] Start: 08-27-2024 Referral to occupational therapist [facility] Start: 08-27-2024 Referral to service [facility] Start: 08-27-2024 Speech therapy assessment [facility] Start: 08-27-2024 Streptococcus pneumoniae antigen assay [facility] Start: 08-27-2024 Hospital admission, emergency, from emergency room, medical nature [facility] Start: 08-27-2024 Verification routine [facility] Start: 08-27-2024 Admission procedure [facility] Start: 08-27-2024 End: 08-27-2024 [facility] Start: 08-27-2024 Bacteria identified in Blood by Culture Blood Culture [facility] Start: 08-27-2024 Bacteria identified in Urine by Culture Urine Culture [facility] Start: 08-27-2024 Urine culture [facility] Start: 06-04-2024 [facility] Start: 07-30-2023 Verification routine [facility] Start: 07-30-2023 Legionella pneumophila Ag [Presence] in Urine [facility] Start: 07-30-2023 Respiratory pathogens DNA and RNA panel - Respiratory specimen by ANTIONE with probe detection [facility] Start: 07-30-2023 Streptococcus pneumoniae antigen assay [facility] Start: 07-30-2023 [facility] Start: 07-30-2023 Admission procedure [facility] Start: 07-30-2023 Hospital admission, emergency, from emergency room, medical nature [facility] Start: 07-30-2023 Gas panel - Venous blood [facility] Start: 07-30-2023 [facility] Start: 07-24-2023 [facility] Start: 03-17-2023 [facility] Start: 11-04-2022 Patient discharge [facility] Start: 11-03-2022 Consultation [facility] Start: 11-03-2022 Care planning and problem solving actions [facility] Start: 11-02-2022 Catheterization of vein [facility] Start: 11-02-2022 Referral to gastroenterology service [facility] Start: 11-01-2022 Following clinical pathway protocol [facility] Start: 11-01-2022 Assessment of risk of venous thromboembolism [facility] Start: 11-01-2022 Catheterization of vein [facility] Start: 11-01-2022 Insertion of catheter into peripheral vein [facility] Start: 11-01-2022 Measuring intake and output [facility] Start: 11-01-2022 Providing care according to standard [facility] Start: 11-01-2022 Provision of activity privileges [facility] Start: 11-01-2022 Referral to occupational therapist [facility] Start: 11-01-2022 Referral to service [facility] Start: 11-01-2022 Speech therapy assessment [facility] Start: 11-01-2022 Tobacco use cessation education [facility] Start: 11-01-2022 [facility] Start: 11-01-2022 Admission procedure [facility] Start: 11-01-2022 Referral to service [facility] Start: 11-01-2022 Inhalation therapy procedure [facility] Start: 11-01-2022 Patient referral to dietitian [facility] Start: 10-14-2022 Patient discharge [facility] Start: 10-14-2022 Urinary bladder residual urine study [facility] Start: 10-14-2022 Removal of urinary catheter [facility] Start: 10-14-2022 Removal of urinary catheter [facility] Start: 10-14-2022 Vitamin B12 measurement [facility] Start: 10-14-2022 Vitamin D, 25-hydroxy measurement [facility] Start: 10-13-2022 Following clinical pathway protocol [facility] Start: 10-13-2022 Ambulation without limitation [facility] Start: 10-13-2022 Assessment of risk of venous thromboembolism [facility] Start: 10-13-2022 Incentive spirometry [facility] Start: 10-13-2022 Insertion of catheter into peripheral vein [facility] Start: 10-13-2022 Measuring intake and output [facility] Start: 10-13-2022 Oxygen therapy [facility] Start: 10-13-2022 Providing care according to standard [facility] Start: 10-13-2022 Provision of activity privileges [facility] Start: 10-13-2022 Referral to occupational therapist [facility] Start: 10-13-2022 Referral to service [facility] Start: 10-13-2022 [facility] Start: 10-13-2022 Verification routine [facility] Start: 10-13-2022 Referral to general surgeon [facility] Start: 10-13-2022 Admission procedure [facility] Start: 10-13-2022 End: 10-13-2022 [facility] Start: 08-03-2022 Patient discharge [facility] Start: 08-02-2022 End: 08-03-2022 [facility] Start: 08-02-2022 Cardiac monitoring [facility] Start: 08-02-2022 Catheterization of vein [facility] Start: 08-02-2022 Continuous pulse oximetry [facility] Start: 08-02-2022 Elevation of head of bed [facility] Start: 08-02-2022 Exercises [facility] Start: 08-02-2022 Implementation of planned interventions [facility] Start: 08-02-2022 Notification of physician [facility] Start: 08-02-2022 Tobacco use cessation education [facility] Start: 08-01-2022 Catheterization of vein [facility] Start: 08-01-2022 Referral to gastroenterology service [facility] Start: 07-31-2022 Physiotherapy of chest [facility] Start: 07-30-2022 Chest 1 View (Portable) Chest 1 View (Portable) [facility] Start: 07-30-2022 XR Chest Single view [facility] Start: 07-29-2022 Speech therapy assessment [facility] Start: 07-29-2022 Introduction of urinary catheter [facility] Start: 07-29-2022 Urinary bladder residual urine study [facility] Start: 07-29-2022 Following clinical pathway protocol [facility] Start: 07-29-2022 Ambulation without limitation [facility] Start: 07-29-2022 Assessment of risk of venous thromboembolism [facility] Start: 07-29-2022 Catheterization of vein [facility] Start: 07-29-2022 Inhalation therapy procedure [facility] Start: 07-29-2022 Insertion of catheter into peripheral vein [facility] Start: 07-29-2022 Measuring intake and output [facility] Start: 07-29-2022 Oxygen therapy [facility] Start: 07-29-2022 Providing care according to standard [facility] Start: 07-29-2022 Referral to occupational therapist [facility] Start: 07-29-2022 Referral to service [facility] Start: 07-29-2022 Respiratory secretion precautions [facility] Start: 07-29-2022 Legionella pneumophila Ag [Presence] in Urine [facility] Start: 07-29-2022 Streptococcus pneumoniae antigen assay [facility] Start: 07-29-2022 Verification routine [facility] Start: 07-29-2022 Admission procedure [facility] Start: 07-29-2022 End: 07-29-2022 [facility] Start: 07-29-2022 Blood culture [facility] Start: 07-29-2022 End: 07-30-2022 [facility] Start: 07-29-2022 Patient referral to dietitian [facility] Start: 04-27-2022 Anes integ musc & nrv head neck&posterior trunk ANESTH HEAD/NECK/PTRUNK [facility] Start: 04-27-2022 Revj/rmvl implanted spinal neurostim generator REVISE/REMOVE NEURORECEIVER [facility] Start: 04-27-2022 Patient discharge [facility] Amphetamines [Presen ce] in Urine by Screen method >1000 ng/mL [facility] Bacteria identified in Blood by Culture Blood Culture [facility] Benzodiazepine measu rement, urine [facility] Cocaine measurement, urine [facility] Ethanol [Mass/volume ] in Serum or Plasma [facility] fentaNYL [Presence] in Urine by Screen method [facility] Folate [Moles/volume ] in Serum or Plasma [facility] Hemoglobin A1c/Hemoglobin.total in Blood [facility] Influenza virus type s A and B and subtypes panel - Respiratory specimen [facility] Lactic acid measurement [facility] Legionella pneumophi la Ag [Presence] in Urine [facility] Magnesium [Mass/volu me] in Serum or Plasma [facility] Magnesium measurement [facility] Methadone measurement, urine [facility] Patient Education [facility] Work Phone: Patient referral [facility] Work Phone: Phencyclidine [Prese nce] in Urine [facility] Procalcitonin [Mass/ volume] in Serum or Plasma [facility] Urine cannabinoid measurement [facility] Urine opiate measurement [facility] Vitamin B12 measurement [facility] Vitamin D, 25-hydrox y measurement [facility] Immunizations Immunization Date Immunization Notes Care Provider Claudy roberts 11-16-2023 influenza, injectabl e, quadrivalent, preservative free Dr. Harish Luis MD Work Phone: [facility] 06-27-2021 Covid (Moderna) Dr. Harish Luis Work Phone: [facility] 03-14-2021 Covid ([employer]el & Hansel) Dr. Harish Luis Work Phone: [facility] 12-27-2020 influenza, injectabl e, quadrivalent, preservative free Dr. Harish Luis Work Phone: [facility] 12-27-2020 influenza, seasonal, injectable Dr. Harish Luis Work Phone: [facility] 05-27-2020 Covid ([employer]el & Hansel) Dr. Harish Luis Work Phone: [facility] 01-20-[address] Harish Luis Work Phone: [facility] 12-29-2019 influenza, injectabl e, quadrivalent, preservative free Dr. Harish Luis Work Phone: [facility] 12-29-2019 influenza, seasonal, injectable Dr. Harish Luis Work Phone: [facility] 11-13-[address] Harish Luis Work Phone: [facility] 04-07-2019 influenza, injectabl e, quadrivalent, preservative free Dr. Harish Luis Work Phone: [facility] 04-07-2019 influenza, seasonal, injectable Dr. Harish Luis Work Phone: [facility] 12-17-2017 influenza, injectabl e, quadrivalent, preservative free Dr. Harish Lusi Work Phone: [facility] 12-17-2017 influenza, seasonal, injectable Dr. Harish Luis Work Phone: [facility] 11-29-2016 influenza, injectabl e, quadrivalent, preservative free Dr. Harish Luis Work Phone: [facility] 11-29-2016 influenza, seasonal, injectable Dr. Harish Luis Work Phone: [facility] Payers Date Payer Category Payer Self-pay [id number] 2016 Medicare [id number] Unknown [id number] 2.16.8 [id number] Unknown [id number] 2.16.8 [id number] Unknown [id number] 2.16.8 [id number] Unknown [id number] 2.16.8 [id number] Unknown [id number] 2.16.8 [id number] Unknown [id number] 2.16.8 40.1.166795.3.579.2.462 Unknown [id number] 2.16.8 40.1.221301.3.579.2.462 Unknown [id number] 2.16.8 40.1.954307.3.579.2.462 Unknown [id number] 2.16.8 40.1.880297.3.579.2.462 Unknown [id number] 2.16.8 40.1.780550.3.579.2.462 Unknown [id number] 2.16.8 40.1.617944.3.579.2.462 Unknown [id number] 2.16.8 40.1.452174.3.579.2.462 Unknown [id number] 2.16.8 40.1.412729.3.579.2.462 Unknown [id number] 2.16.8 40.1.345003.3.579.2.462 Unknown [id number] 2.16.8 40.1.843662.3.579.2.462 Unknown [id number] 2.16.8 40.1.930354.3.579.2.462 Unknown [id number] 2.16.8 40.1.531362.3.579.2.462 Unknown [id number] 2.16.8 40.1.044477.3.579.2.462 Unknown [id number] 2.16.8 40.1.087199.3.579.2.462 Unknown [id number] 2.16.8 [id number] Unknown [id number] 2.16.8 [id number] Social History Date Type Detail Facility Start: 02-17-2020 End: 07-30-2023 Tobacco smoking status NHIS Unknown if ever smoked [facility] Start: 02-17-2020 None [facility] Start: 02-17-2020 Spouse/ Signif icant Other [facility] Start: 02-17-2020 Vapor [facility] Start: 1950 Sex Assigned At Female [facility] Start: 06-04-2024 End: 09-29-2024 Tobacco smoking status NHIS Smokes tobacco daily (finding) [facility] Start: 06-04-2024 Sex Female (finding) [facility] Start: 01-10-2025 Tobacco smoking status NHIS Current some day smoker [facility] Sex [facility] NEGATED: Highlighted row [facility] Medical Equipment Procedure Code Equipment Code [...] 04-27-2022 FDA Start: 04-27-2022 FDA Start: 04-27-2022 FDA Start: 04-27-2022 FDA Start: 04-27-2022 Goals Date Patient Goal Desired Activity /State Functional Status Date Assessment Result Facility 10-03-2024 Functional status Ambulates;Bathroom Priv ilege [facility] Work Phone: 09-29-2024 Functional status Ambulates;Bathroom Priv ilege [facility] Work Phone: 09-27-2024 Functional status Rolling Walker [facility] Work Phone: 09-22-2024 Functional status Standby Assist [facility] Work Phone: 09-22-2024 Functional status Bedrest [facility] Work Phone: 08-29-2024 Functional status Ambulates [facility] Work Phone: 11-04-2022 Functional status Ambulates [facility] Work Phone: 10-14-2022 Functional status Ambulates [facility] Work Phone: 08-03-2022 Functional status Ambulates;Chair [facility] Work Phone: Mental Status Date Assessment Result Facility 01-02-2025 Cognitive function Awake [facility] Work Phone: 10-02-2024 Cognitive function Voice/Name [facility] Work Phone: 09-29-2024 Cognitive function Voice/Name [facility] Work Phone: 09-27-2024 Cognitive function Level Of Cons ciousness Awake;Alert;Appropriate;Follow s Commands [facility] Work Phone: 09-22-2024 Cognitive function Appropriate;Cooperativ [facility] Work Phone: 09-22-2024 Cognitive function Voice/Name [facility] Work Phone: 09-21-2024 Cognitive function Level Of Cons ciousness Awake;Alert;Appropriate;Follow s Commands [facility] Work Phone: 08-29-2024 Cognitive function Voice/Name [facility] Work Phone: 08-27-2024 Cognitive function Voice/Name [facility] Work Phone: 07-30-2023 Cognitive function Awake;Lethargic [facility] Work Phone: 11-04-2022 Cognitive function Voice/Name [facility] Work Phone: 11-01-2022 Cognitive function Level Of Cons ciousness Awake;Follows Commands;Disoriented [facility] Work Phone: 10-13-2022 [facility]: 10-13-2022 Cognitive function Arousable To Voice/Nam e [facility] Work Phone: 10-13-2022 Cognitive function Level Of Cons ciousness Awake;Alert;Appropriate;Follow s Commands [facility] Work Phone: 08-03-2022 Cognitive function Appropriate;[facility] Work Phone: 08-03-2022 Cognitive function Voice/Name [facility] Work Phone: 04-27-2022 Cognitive function Voice/Name [facility] Work Phone: Clinical Notes 10-13-2022 to 01-08-2025 Note Date & Type Note Facility 01-08-2025 Note HNO ID: [id number] Author: SHERMAN PASTRANA APRN.PILL MAKER Service: ? Author Type: Nurse Specialist Type: Progress Notes Filed: 01/08/2025 14:39 Note Text: Subjective Patient ID: Carol is a 74 year old female who presents for No chief complaint on file.. HPI Carol David is a 74-year-old female with migraines and generalized anxiety disorder, presenting for evaluation of a persistent headache. She was seen at [facility] for abrupt headache started 4 days prior to arrival on January 02, 2025. Lab results were unremarkable. Brain CT without intracranial hemorrhage no mass effect or midline shift. Chronic involutional and ischemic gliotic white matter changes are noted. Clinical impression was intractable migraine without aura and anxiety. She was prescribed clorazepate by potassium 3.75 mg oral twice daily as needed. Carol David is a 74-year-old female with a history of migraines, anxiety, and shoulder fracture, presenting for follow-up after a recent ER visit for a severe headache. Headache: - History of migraines; recent severe headache onset last Sunday, prompting ER visit after 4 days. - Received IV treatment in the ER with slight relief. - Reports current slight headache. - States ER physician prescribed three medications, but Carol reports was unable to pick them up due to pharmacy issues. Anxiety: - Experiencing extreme anxiety. - Previously prescribed clonazepam last month; Carol reports not receiving it. Memory Concerns: - Does not recall previous visit with the clinician last month. - Denies other memory issues at home. - States no assistance at home; helps with medications. Shoulder Fracture: - Seen by an orthopedist; surgery recommended but declined by Carol. - Previously prescribed Celebrex; Carol reports not taking it. ROS Head: (+) headache Neurological: (+) memory loss Psychiatric: (+) anxiety Objective BP 128/84 (BP Site: Left Arm, BP Position: Sitting) Pulse 93 Wt 45.8 kg (101 lb) SpO2 97% BMI 20.75 kg/m? Physical Exam Vitals and nursing note [...] oriented to person, place, and time. 1. Acute intractable headache, unspecified headache type (R51.9) - Recent severe headache episode led to ED visit at [place]; received IV treatment with slight improvement. - Headache currently mild; no daily recurrence reported. - states unable to obtain prescribed medications due to pharmacy issues. 2. Memory problem (R41.3) - demonstrates significant memory impairment, including inability to recall recent visits and medication history. - Refer to Dr. Ohara (Geriatrics) for further evaluation and management. Spouse to assist with medication management. 3. Chronic low back pain, unspecified back pain laterality, unspecified whether sciatica present (M54.50) 4. Scoliosis, unspecified scoliosis type, unspecified spinal region (M41.9) 5. Chronic right shoulder pain (M25.511) - Patient declined surgical intervention as recommended by orthopedist. - Reordered Celebrex; prescription sent to [facility]. 6. Anxiety (F41.9) 7. Insomnia, unspecified type (G47.00) - Anxiety and insomnia ongoing; previously prescribed doxepin and clonazepam. - Reordered doxepin and clonazepam; prescriptions sent to [facility]. 8. Hypertension, unspecified type (I10) Controlled, continue present management 9. Gastroesophageal reflux disease, unspecified whether esophagitis present (K21.9) Controlled, continue present management Sherman Pastrana APRN.PILL MAKER Medical Decision Making: Problems: Moderate: 2+ stable chronic illnesses and New problem with uncertain prognosis Data: Unique source(s) for external note(s) reviewed: 1 Unique test result(s) reviewed: 1 Risk: Moderate: Drug management Medical Decision Making Level: 4 - Moderate [facility] 01-02-2025 Radiology Diagnostic study note [facility] 01-02-2025 Discharge summary Note Date/Time January 02, 2025 9:18pm [facility] Medical Records Department [address] [place] [address] Emergency Department Summary 01/02/25 MR#: [id number] Acct: [id number] Name: CAROL DAVID Rep #:[id number] : 1950 74 From: Huber Ballard MD PCP: Care Physician,No Primary Status :REG ER Location: ED HPI History of Present Illness Chief Complaint: Headache Detail of Chief Complaint: Abrupt headache that started 4 days ago Informant: patient Onset/Context/Timing Onset: Days Context: Sudden Timing: Continuous Quality -Headache: Positive for Similar Prior Headaches Location: Bilateral Current Severity: Moderate Maximum Severity: Severe Worsened by: Sound and light Relieved by: Nothing Associated Symptoms/Injury Associated Symptoms: Positive for Nausea and Photophobia; Negative for Fever, Vomiting, Sore Throat, Sinus Pressure, Numbness, Tingling, Preceding Aura, Visual Changes, Blurred Vision or Visual Loss Injury - OCHOA: Negative for Direct Trauma Narrative Narrative: Patient is a 74-year-old woman. She has history of migraines. Has not had a headache in several years. She presents with abrupt onset of bilateral headachewith nausea photophobia and sonophobia. She denies fever, chills night sweats. No trouble speech or swallowing. She denies cardiac or respiratory symptoms. She denies vomiting. She denies any urologic symptoms. Prior similar symptoms: No Recent Illness/Hospitalization: No PFSH PFSH Medical History Dysphagia Oropharyngeal dysphagia Frequent falls Anxiety and [...] Medications ?Medication ?Instructions ?Recorded ?Last Taken ?Type doxepin 150 mg capsule 150 mg PO QHS ANXIETY 30 da ys #30 09/22/24 09/28/24 21:25 Rx caps omeprazole 40 mg capsule,delayed 40 mg PO DAILY GERD 3 0 days #30 09/22/24 09/29/24 08:10 Rx release caps lidocaine 5 % topical patch 1 patch topical 2200 Pain #0 ea 09/29/24 09/28/24 21:10 Rx melatonin 3 mg tablet 3 mg PO QHS PRN PRN Insomnia #0 09/29/24 Unknown Rx tabs sennosides 8.6 mg-docusate sodium 2 tab PO BID PRN PRN Constipation 09/29/24 Unknown Rx 50 mg tablet (Stimulant Laxative #0 tabs Plus) clorazepate dipotassium 3.75 mg 3.75 mg PO TID PRN anx iety 7 days 01/02/25 Unknown Rx tablet #20 tabs Allergy/AdvReac Type Severity Reaction Status Date / Time Penicillins Allergy Rash Verified 01/02/25 16:13 Family History Mother Hypertension CVA (cerebral vascular accident) Heart disease Cerebral hemorrhage Father Cancer Hx stomach cancer and leukemia. Surgical History History of cardiac catheterization Hx of dilation and curettage History of 2 sections Hx of surgical procedure History of lumbar laminectomy Social History household members: spouse housing: house number of children: 2 Smoking Status: Current some day smoker tobacco type: e-cigarettes alcohol intake: never substance use type: does not use what type of physical activity do you participate in: none additional social history: Currently ambulating with a cane ROS ROS ED Constitutional Constitutional ED: Denies chills, fever(s), subjective or sweats Eyes Eyes: Denies blurry vision, change in vision or diplopia ENT ENT ED: Denies ear pain or rhinorrhea Cardiovascular Cardiovascular: Denies chest pain, palpitations or racing heartbeat Respiratory/Chest Respiratory/Chest: Denies cough, dyspnea or dyspnea on exertion Gastrointestinal Gastrointestinal: Reports nausea; Denies abdominal pain, diarrhea or vomiting Musculoskeletal Musculoskeletal: Denies arthralgias, back pain, myalgias or neck pain Integumentary Denies rash Neurologic Neurologic: Reports headache(s); Denies paresthesias or weakness Psychiatric Psychiatric: Reports anxiety Endocrine Endocrinology: Denies polydipsia, polyphagia or polyuria Hematologic/Lymphatic Hematologic/Lymphatic: Denies easy bleeding or easy bruising EXAM Physical Exam Const Vital Signs: 01/02/25 16:11 01/02/25 18:11 01/02/25 20:00 Temperature 98.8 F Temperature Source Oral Pulse Rate 91 78 74 Respiratory Rate 18 15 Blood Pressure 136/88 H 138/96 H 126/89 H Blood Pressure Mean 104 110 101 Pulse Ox 98 96 95 Oxygen Delivery Method Room Air Room Air Room Air 01/02/25 20:38 Temperature 98.8 F Temperature Source Pulse Rate 77 Respiratory Rate 16 Blood Pressure 126/89 H Blood Pressure Mean 101 Pulse Ox 95 Oxygen Delivery Method Positive well nourished Constitutional Narrative: Affect is flat. General Appearance ED: NAD; Negative for pallor HEENT Reports normocephalic, TM's clear and moist mucous membranes atraumatic; Negative for tenderness, temporal artery tenderness or vesicular rash Face and Sinus: Negative for sinus tenderness Tympanic Membrane ED: Yes TM's clear Eyes PERRL and EOMs intact bilaterally Eyes Narrative: There is no nystagmus. General Eye ED: Negative for pale conjunctiva or scleral icterus Neck no lymphadenopathy, supple, no meningeal signs and no JVD Resp normal respiratory effort and clear to auscultation bilaterally Cardio regular rate, regular rhythm, S1 normal heart sound, S2 normal heart sound and no murmurs Extremity normal to inspection, full ROM and normal capillary refill General Extremety ED: Negative for edema General Extremity: Negative for edema Neuro oriented x3, CN's II-XII intact bilaterally and no sensory deficits noted Neuro Narrative: There is no clonus Babinski sign noted right or left. There is no dysmetria. Haleigh Coma Scale: document GCS findings Spontaneous Obeys Commands Oriented 15 Coordination / Balance: [id number] test normal Speech: speech normal Psych Mood & Affect: depressed and anxious Skin General Skin Exam: Negative for jaundice or pallor Lesions: no lesions Rashes: no rashes MDM MDM MDM Narrative Medical decision making narrative: Differential diagnosis tension headache, vascular headache, subarachnoid hemorrhage, unlikely giant cell arteritis. Because she has not had a headache in years we will obtain CT to assess for subarachnoid hemorrhage. White count was obtained to assess for possibility of infection and to assess platelet count. ESR has possibility of vasculitis needs to be entertained. Lab Data Attestation: I reviewed the patient's lab results. Lab results narrative: CBC is unremarkable. ESR slightly elevated. It is unremarkable once corrected for age. Labs: Laboratory Results - last 24 hr 01/02/25 18:18 WBC 5.6 RBC 4.32 Hgb 13.0 Hct 39.9 MCV 92.4 MCH 30.1 MCHC 32.6 RDW Std Deviation 50.2 H RDW Coeff of Mehnaz 14.7 H Plt Count 533 H MPV 9.9 Immature Gran % (Auto) 0.400 Neut % (Auto) 47.3 Lymph % (Auto) 38.8 Clare % (Auto) 10.6 H Eos % (Auto) 1.6 Baso % (Auto) 1.3 H Absolute Neuts (auto) 2.7 Absolute Lymphs (auto) 2.17 Nucleated RBC % 0 ESR 42 H Radiography Diagnostic Testing: Clinical Impression(s) from Imaging Studies Brain CT 01/02/25 19:45 IMPRESSION: 1. No intracranial hemorrhage. No mass effect or midline shift. 2. Chronic involutional and ischemic gliotic white matter changes. Reading Location: [facility] CT report was reviewed. Agree there is no acute ischemic changes. Treatment and Re-Evaluation Narrative: Patient was reassessed at 2105. Patient's headache has improved markedly. Willdischarge to home. She asked if she could have medicine for anxiety. She states she does not have an appointment with Dr. Fabrizio smith until March. Discharge Plan Triage Chief Complaint: Headache ED Provider: Huber Ballard Dx/Rx/DC Orders Clinical Impression: Intractable migraine without aura, Anxiety Instructions: ED Anxiety Reaction, ED, Migraine (Classical) Prescriptions: New clorazepate dipotassium 3.75 mg tablet 3.75 mg PO TID PRN (Reason: anxiety) 7 Days Qty: 20 0RF No Action omeprazole 40 mg capsule,delayed [...] PRN PRN (Reason: Constipation) Qty: 0 0RF Primary Care Provider: Care Physician,No Primary Referrals: Alesha Sow MD [Med Staff - [facility], Internal Medicine] - 1-2 Weeks Care Physician,No Primary [Primary Care Provider, Medical] Activity Restrictions/Additional Instructions: When you call Dr. Sow' office let them know that you were seen in the ER and need an ER follow-up visit Print Language: British Disposition Disposition: Home, Self Care What to do if you have Problems For any increased pain, shortness of breath, bleeding, nausea or vomiting, chestpain, or any unexpected problems, contact your Primary Care Provider. Call [facility] ([phone]) or report to the closest Emergency Room. Call 911 if necessary. 01/02/252117 <Electronically signed by Huber Ballard MD> Cosigner Signature (if applicable): CC: No Primary Care Physician ~ Signed [facility] Work Phone: 1(625) 421-368510-13-2025 NoteHNO ID: [id number] Author: NICHOL CASAREZ, PT Service: ? Author Type: Physical Therapist Type: Progress Notes Filed: 12/30/2024 09:40 Note Text: Episode Visit Count: 1 Therapist That Will Accept/Oversee The Plan Of Care: Nichol Casarez Start of Care Date: 12/29/24 Onset Date: [...] Goals for Episode of Care: established 12/29/24 [facility] in home exercise program. Patient will decrease [...] of Visits Planned: 6 Planned Treatment Interventions: Self-intermediate management (58974), Gait Training (41370), Therapeutic activities (19126), Neuromuscular re-education (67037), Therapeutic exercise (30993), Manual therapy (44974) PLAN FOR NEXT VISIT: assess LBP, and [...] Description: Aching Post Treatment Pain Score 2: 10/10 Post Treatment Pain Location 2: Back Post Treatment Pain Description 2: Aching PROMIS Scales 12/29/2024 Higher is Better Phys Func - T Score 37 (moderate dysfunction) Phys Func - Percentile 10 Self-Eff Symptom - T Score 44 (Average) Self-Eff Symptom - Per (more content not included)...[facility] 12-11-2024 NoteHNO ID: [id number] Author: SHERMAN PASTRANA APRN.PILL MAKER Service: ? Author Type: Nurse Specialist Type: [...] Presents today to establish care with Alesha Sow MD Previous PCP: Dr. Luis Last seen: [...] - Carol was last seen by an principal bioinformatics specialist at [facility] 2 months ago; advised to take [...] unspecified spinal region (M41.9) (more content not included)...[facility]07-18-2025 [facility]07-18-2025 History and physical note Author Harish Luis [facility] Note Date/Time October 03, 2024 8:55 am [facility] Medical Records Department [address] [place] [address] History & Physical Exam 09/29/241925 MR#: [id number] Acct: [id number] Name: CAROL DAVID Rep #:[id number] : 1950 74 From: Harish Luis MD PCP: Dr. Harish Luis MD Status:ADM I N Location: TCU [facility]01-1 HPI - General General Date of Admission: 09/29/24 Date of Service: 09/29/24 Chief Complaint: Here for rehabilitation. HPI Narrative CAROL DAVID, is a 74 Female who presents with following 09/27/2024 [facility] ED falls. Fell, hit head, no loss of consciousness, cough x 6 months. Not doing well at home. CT brain negative, Chest bilateral lower lobe consolidation, urinalysis negatie. 09/27/2024 Admit [facility]. PT/OT/CM for TCU. ST, Levaquin/Flagyl for aspiration pneumonia. 09/28/2024 No acute events overnight, SNF recommended. PT/OT TCU. 09/29/2024 Admit to TCU with debility, here for rehabilitation, strengthening, prior to discharge home. [facility] Medical History (Updated 09/29/24 @ 19:30 by [...] aluminum-mag hydroxide-simethicone 30 ml PO Q6H PRN [place] N Gastric 09/29/24 Unknown Rx 400 mg-400 [...] __x__ GRD contraindicated. Reason contraindicated: stable chronic senior living use. The following psychotropic medication was present [...] to GDR. ____ GRD contraindicated. Reason contraindicated: 09/29/241938 <Electronically signed by Harish Luis MD> Cosigner [...] Addendum GERD - Pantoprazole 40mg daily. 10/01/24 1721<Electronically signed by Harish Luis MD> Cosigner Signature [...] td daily. 10/02/24 161<Electronically signed by Harish Luis MD> Cosigner Signature [...] her U doctor and family doctor. 10/03/24 08<Electronically signed by Harish Luis MD> Cosigner Signature (if applicable): cc: Dr. Harish Luis MD ~* Signed [facility] Work Phone: 1(348) 602-690007-17-2025 Progress note Author Gurmeet Friend [facility] Note Date/Time October 02, 2024 5:51 pm [facility] Medical Records Department [address] [place] [address] Progress Note 10/02/24 1749 MR#: [id number] Acct: [id number] Name: CAROL DAVID Rep #:[id number] : 1950 74 From: Gurmeet Zarate DO PCP: Dr. Harish Luis MD Status:ADM I N Location: TCU TCU03-19 Progress Note Esophageal Clearance: Esophageal retention (lower [...] ASA of 3. Visit Charges Inpatient E&M: 73399 Subs Hosp L3 10/02/24 1751 <Electronically signed by Gurmeet Zarate DO> Gurmeet Zarate DO Cosigner Signature (if applicable): CC: ~ Signed [facility] Work Phone: 1(735) 504-322907-17-2025 Progress note Author Ardiana Ponce [facility] Note Date/Time October 02, 2024 10:1 1am [facility] Medical Records Department [address] [place] [address] Progress Note - Pharmacy 10/02/24 0748 MR#: [id number] Acct: [id number] Name: CAROL DAVID Rep #:[id number] : 1950 74 From: Adriana Ponce PCP: Dr. Harish Luis MD Status:ADM I N Location: TCU TC03-19 Documented by User: Adriana Ponce 10/02/24 10:11 TCU RX Drug Regimen Review Subjective/Objective Subjective/Objective Subjective: TCU Admission. 74 YOF presented to the ER with falls. Hospitalized for falls, failure to thrive. Admitted to TCU with debility for strengthening and rehabilitation. Objective: Allergies Penicillins Allergy (Verified 09/27/24 12:28) Rash Current Medications Generic Name Dose Route Start Last Admin Trade Name Tereza PRN Reason Stop Dose Admin Acetaminophen 1,000 [...] 0.5 Mg Tablet PO 10/22/24 22:01 QHS [facility] Clotrimazole 1 applic 09/30/24 22:00 10/01/24 20:45 Clotrimazole/Betamethasone 1 Tube TOPICAL 1 applic BID [facility] Administration Protocol Doxepin HCl 75 mg 09/29/24 22:00 10/01/24 20:38 Doxepin Hcl 25 Mg Capsule PO 10/06/24 22:01 75 mg QHS JEANNIE Administration Doxepin HCl 50 mg 10/07/24 22:00 Doxepin Hcl 50 Mg Capsule PO QHS JEANNIE Doxepin HCl 25 mg 10/15/24 22:00 Doxepin Hcl 25 Mg Capsule PO 10/22/24 22:01 QHS [facility] Lidocaine 1 patch 09/29/24 22:00 10/01/24 19:25 Lidocaine 5% Patch TOPICAL Not Given 2200 [facility] Protocol Magnesium Citrate 300 ml 09/29/24 19:21 Magnesium Citrate 300 Ml PO DAILY PRN CONSTIPATION Pantoprazole Sodium 40 mg 10/01/24 18:00 10/01/24 18:03 Pantoprazole Sodium 40 Mg Tablet PO 40 mg DAILY JEANNIE Administration Polysaccharide Iron Complex 150 mg 10/01/24 10:00 10/01/24 08:02 Iron Polysaccharide Complex 150 Mg Capsule PO 150 mg DAILY [facility] Administration Senna/Docusate Sodium 1 tablet 09/29/24 22:00 [...] monitor for S/S of GERD and diarrhea (BEERs). 4. Tinea Corporis: Lotrisone topical bid under [...] User: Dr. Harish Luis MD 10/02/24 10:09 U RX Drug Regimen Review Provider Comments Provider responsibility Provider Comments to Recommendations by Pharmacy Agree 10/02/24 1011 <Electronically signed by Adriana Ponce> Adriana Ko Signature (if applicable): 10/02/24 1009 <Electronically signed by Harish Luis MD> CC: ~ Signed [facility] Work Phone: 1(302) 609-215007-16-2025 Consult note Author Gladys Anaya [facility] Note Date/Time October 01, 2024 4:39 pm [facility] Medical Records Department [address] [place] [address] Consultation - GI 10/01/24 1029 MR#: [id number] Acct: [id number] Name: CAROL DAVID Rep #:[id number] : 1950 74 From: Gladys qiu TUBE BENDING MACHINE OPERATOR-C PCP: Dr. Harish Luis MD Status:ADM I N Location: [facility]01-1 ADDENDUM by Gurmeet Zarate DO on 10/01/24 [...] Multi Select Codes Visit Charges Visit Charges: 61243 SNF Init L1 10/01/24 1639<Electronically signed by [...] HERON Cifuentes and [facility] Medical History (Updated 10/01/24 @ 11:56 by Gladys Anaya, TUBE BENDING MACHINE OPERATOR-C) Dysphagia Oropharyngeal dysphagia Frequent falls Anxiety and [...] PRN 09/29/24 09/28/24 23:45 Rx Fever, pain -12/26 #0 tabs aluminum-mag hydroxide-simethicone 30 ml PO Q6H PRN WV N Gastric 09/29/24 Unknown Rx 400 mg-400 [...] this time. I did speak with ST (Urmila) and who advised she will be completing [...] f/u 10/01/24 1216 <Electronically signed by Gladys WOO> Cosigner Signature (if applicable): CC: Dr. Harish Luis MD~ Signed [facility] Work Phone: 1(293) 260-847407-16-2025 Procedure [facility] 09-29-2024 [facility]07-14-2025 Discharge summary [facility] Medical Records Department [address] [place] [address] Transfer to Extended Care MR#: [id number] Acct: [id number] Name: CAROL DAVID Rep #:[id number] : 1950 74 From: Ricardo Padilla MD PCP: Dr. Harish Luis MD Status:ADM I N Certification of patient admission REQUIRED AT TIME OF ADMISSION. I CERTIFY THAT POST-HOSPITAL ECF SERVICES ARE REQUIRED TO BE GIVEN ON AN IN-PATIENT BASIS BECAUSE OF THE ABOVE NAMED PATIENT'S NEED FOR CARE HOME CARE ON A CONTINUING BASIS FOR THE CONDITION(S) FOR WHICH HE/SHE WAS RECEIVING IN-PATIENT HOSPITAL SERVICES PRIOR TO HIS/HER TRANSFER TO THE [facility]. 09/29/24 1455 Diet Diet Order/Speech Therapy: INPATIENT [...] reduced. Requested for PT OT eval and psychiatric social worker to assist with disposition. Plans for patient to bedischarged to fci facility pending bed availability 2. History of [...] 15 0RF Referrals / Follow Up: Harish uLis Chi, MD [Primary Care Provider] - Within 2 Weeks Disposition Disposition (needs filled in before D/C Order can be placed): [facility] 09/29/24 3071 Cosigner Signature (if applicable): CC: Dr. Anastasia Khan MD; Dr. Harish Luis MD ~ [facility]07-14-2025 Discharge summary [facility] Medical Records Department [address] [place] [address] Discharge Summary 09/29/24 1442 MR#: [id number] Acct: [id number] Name: CAROL DAVID Rep #:[id number] : 1950 74 From: Ricardo Padilla MD PCP: Dr. Harish Luis MD Status:ADM I N Location: [place] [address] Providers Date of Admission: 09/27/24 Date of [...] reduced. Requested for PT OT eval and psychiatric social worker to assist with disposition. Plans for patient to bedischarged to fci facility pending bed availability 2. History of [...] % (Auto) 47.5, Lymph % (Auto) 36.5, Clare% (Auto) 9.3, Eos % (Auto) 5.4 H, [...] 5 % Adhesive Patch,Medicated 1 patch topical 0 Qty: 0 0RF Protocol: *Topical Application Instructions [...] in before D/C Order can be placed): [facility] Charges/Coding Visit Charges Inpatient E&M: 46993 Disch Hosp >30min 09/29/24 4126 Cosigner Signature (if applicable): CC: Dr. Ricardo Padilla MD; Dr. Harish Luis MD~ Signed [facility]07-14-2025 [facility]07-14-2025 Hospital Discharge instructionsAdditional Instructions Date of Discharge: 09/29/24[facility] Work Phone: 1(887) 764-268007-14-2025 Progress note Author Ricardo Padilla [facility] Note Date/Time September 29, 2024 9:03 am [facility] Medical Records Department [address] [place] [address] Progress Note - Hospitalist 09/29/24 0857 MR#: [id number] Acct: [id number] Name: CAROL DAVID Rep #:[id number] : 1950 74 From: Ricardo Padilla MD PCP: Dr. Harish Luis MD Status:ADM I N Location: [place] [address] Reason for Visit Chief Complaint: Mechanical fall, [...] reduced. Requested for PT OT eval and psychiatric social worker to assist with disposition. Plans for patient to bedischarged to fci facility pending bed availability 2. History of [...] 35 Minutes Charges/Coding Visit Charges Inpatient E&M: 37310 Subs Hosp L2 09/29/24 0903 <Electronically signed by Ricardo Padilla MD> Cosigner Signature (if applicable): CC: ~ Signed [facility] Work Phone: 1(362) 387-721907-14-2025 Progress note [facility] Medical Records Department [address] [place] [address] [place] [address] Progress Note - Hospitalist 09/29/24 0857 MR#: [id number] Acct: [id number] Name: CAROL DAVID Rep #:[id number] : 1950 74 From: Ricardo Padilla MD PCP: Dr. Harish Luis MD Status:ADM I N Location: [place] [address] Reason for Visit Chief Complaint: Mechanical fall, [...] reduced. Requested for PT OT eval and psychiatric social worker to assist with disposition. Plans for patient to bedischarged to fci facility pending bed availability 2. History of [...] 35 Minutes Charges/Coding Visit Charges Inpatient E&M: 86322 Subs Hosp L2 09/29/24 0903 Cosigner Signature (if applicable): CC: ~ Signed [facility]07-13-2025 Progress note Author Anastasia Khan [facility] Note Date/Time September 28, 2024 11:3 5am [facility] Medical Records Department [address] [place] [address] Progress Note - Hospitalist 09/28/24709 MR#: [id number] Acct: [id number] Name: CAROL DAVID Rep #:[id number] : 1950 74 From: Anastasia Khan MD PCP: Dr. Harish Luis MD Status:ADM I N Location: [facility] IO095-6 Reason for Visit Reason for Visit: Diagnoses [...] recommendation and insistence that she transition to fci facility following which she was amenable. Patient [...] (Auto) 80.5 H, Lymph % (Auto) 11.4 L,Clare % (Auto) 5.9, Eos % (Auto) 1.1, [...] Sl. Cloudy, Urine pH 6.0, Ur Specific [place] 1.015, Urine Protein 30 H, Urine Glucose [...] % (Auto) 53.6, Lymph % (Auto) 31.8, Clare% (Auto) 9.1, Eos % (Auto) 4.1, Baso [...] IMPRESSION: No acute intracranial finding. Reading Location: [facility] Chest X-Ray 09/27/24 13:25 IMPRESSION: Stable bilateral lower lung zone consolidations, zkbe-cobvcnz-hdic-right, compatible with pneumonitis/pneumonia. Reading Location: [facility] Pelvis X-Ray 09/27/24 13:50 IMPRESSION: No acute pelvic deformity. Reading Location: [facility] Physical Exam Narrative Physical Examination: General: Awake, alert, oriented x 3, remains cooperative, seated upright in the [place] bedside chair, eating breakfast, notes feeling well and was eager for discharge however discussed that we are awaiting fci facility at this time. Skin: Normal color, [...] additional 5-day course now presenting to the [facility] ED on 09/27/2024 withhistory of recurrent [...] given possibility of recurrent trauma: Admitted to [place], maintain on fall and aspirationprecautions, as previously noted will continue as noted with reduced dose of doxepin and reduced dose of clonazepam with transition to fci facility once precertification obtained with ongoing slow [...] Code status. Charges/Coding Visit Charges Inpatient E&M: 76185 Subs Hosp L2 09/28/24 1135 <Electronically signed by Anastasia Khan MD> Cosigner Signature (if applicable): CC: ~ Signed [facility] Work Phone: 1(203) 215-513807-13-2025 Progress note [facility] Medical Records Department [address] [place] [address] Progress Note - Hospitalist 09/28/24 0710 MR#: [id number] Acct: [id number] Name: CAROL DAVID Rep #:[id number] : 1950 74 From: Anastasia Khan MD PCP: Dr. Harish Luis MD Status:ADM I N Location: [facility] VK237-1 Reason for Visit Reason for Visit: Diagnoses Repeated falls (09/27/24) Adult failure to thrive (09/27/24) Subjective Subjective Patient with no acute events overnight per self and per nursing report. Despitelengthy discussions yesterday the first question patient asked is if she can be discharged to home. Again reviewed yesterday's events and the frequent falls and her 's strong recommendation and insistence that shetransition to fci facility following which she was amenable. Patient [...] (Auto) 80.5 H, Lymph % (Auto) 11.4 L,Clare % (Auto) 5.9, Eos % (Auto) 1.1, [...] Sl. Cloudy, Urine pH 6.0, Ur Specific [place] 1.015, Urine Protein 30 H, Urine Glucose [...] % (Auto) 53.6, Lymph % (Auto) 31.8, Clare% (Auto) 9.1, Eos % (Auto) 4.1, Baso [...] IMPRESSION: No acute intracranial finding. Reading Location: [facility] Chest X-Ray 09/27/24 13:25 IMPRESSION: Stable bilateral lower lung zone consolidations, ilxc-izujwgt-ssos-right, compatible with pneumonitis/pneumonia. Reading Location: [facility] Pelvis X-Ray 09/27/24 13:50 IMPRESSION: No acute pelvic deformity. Reading Location: [facility] Physical Exam Narrative Physical Examination: General: Awake, alert, oriented x 3, remains cooperative, seated upright in the [place] bedside chair, eating breakfast, notes feeling well and was eager for discharge however discussed that we are awaiting fci facility at this time. Skin: Normal color, [...] additional 5-day course now presenting to the [facility] ED on 09/27/2024 withhistory of recurrent [...] given possibility of recurrent trauma: Admitted to [place], maintain on fall and aspirationprecautions, as previously noted will continue as noted with reduced dose of doxepin and reduced dose of clonazepam with transition to fci facility once precertification obtained with ongoing slow [...] Code status. Charges/Coding Visit Charges Inpatient E&M: 20658 Subs Hosp L2 09/28/24 1135 Cosigner Signature (if applicable): CC: ~ Signed [facility]07-12-2025 Discharge summary Author Dimitry [facility] Note Date/Time September 27, 2024 9:07 pm [facility] Medical Records Department [address] [place] [address] Emergency Department Summary 09/27/24 MR#: [id number] Acct: [id number] Name: CAROL DAVID Rep #:[id number] : 1950 74 From: Dimitry Rosales DO PCP: Dr. Harish Luis MD Status:ADM I N Location: [place] [address] HPI HPI - Fall History of Present [...] Complains of some pain in her coccyx. [facility] Medical History Aspiration pneumonia Hypoxia Fracture of [...] 80.5 H Lymph % (Auto) 11.4 L Clare % (Auto) 5.9 Eos % (Auto) 1.1 [...] Sl. Cloudy Urine pH 6.0 Ur Specific [place] 1.015 Urine Protein 30 H Urine Glucose [...] IMPRESSION: No acute intracranial finding. Reading Location: [facility] Chest X-Ray 09/27/24 13:25 IMPRESSION: Stable bilateral lower lung zone consolidations, akgk-muevuag-zwzv-right, compatible with pneumonitis/pneumonia. Reading Location: [facility] 1 view chest x-ray obtained interpreted [...] MD [Primary Care Provider] - Print Language: British Disposition Disposition: Acute Care Hospital [facility] What to do if you have Problems For any increased pain, shortness of breath, bleeding, nausea or vomiting, chestpain, or any unexpected problems, contact your Primary Care Provider. Call [facility] ([phone]) or report to the closest Emergency Room. Call 911 if necessary. 09/27/242106 <Electronically signed by Dimitry Rosales DO> Cosigner Signature (if applicable): CC: Dr. Harish Luis MD ~ Signed [facility] Work Phone: 1(820) 332-299007-12-2025 Discharge summary [facility] Medical Records Department [address] [place] [address] Emergency Department Summary 09/27/24 MR#: [id number] Acct: [id number] Name: CAROL DAVID Rep #:[id number] : 1950 74 From: Dimitry Rosales DO PCP: Dr. Harish Luis MD Status:ADM I N Location: [place] [address] HPI HPI - Fall History of Present [...] Complains of some pain in her coccyx. [facility] Medical History Aspiration pneumonia Hypoxia Fracture of [...] 80.5 H Lymph % (Auto) 11.4 L Clare % (Auto) 5.9 Eos % (Auto) 1.1 [...] Sl. Cloudy Urine pH 6.0 Ur Specific [place] 1.015 Urine Protein 30 H Urine Glucose [...] IMPRESSION: No acute intracranial finding. Reading Location: [facility] Chest X-Ray 09/27/24 13:25 IMPRESSION: Stable bilateral lower lung zone consolidations, cbcr-yxlpvrt-gvcx-right, compatible with pneumonitis/pneumonia. Reading Location: [facility] 1 view chest x-ray obtained interpreted [...] MD [Primary Care Provider] - Print Language: British Disposition Disposition: Acute Care Hospital [facility] What to do if you have Problems For any increased pain, shortness of breath, bleeding, nausea or vomiting, chestpain, or any unexpected problems, contact your Primary Care Provider. Call [facility] ([phone]) or report tothe closest Emergency Room. Call 911 if necessary. 09/27/242106 Cosigner Signature (if applicable): CC: Dr. 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 [facility] Medical History Anxiety and depression Fracture of [...] (Auto) 80.5 H, Lymph % (Auto) 11.4 L,Clare % (Auto) 5.9, Eos % (Auto) 1.1, [...] Sl. Cloudy, Urine pH 6.0, Ur Specific [place] 1.015, Urine Protein 30 H, Urine Glucose [...] IMPRESSION: No acute intracranial finding. Reading Location: [facility] Chest X-Ray 09/27/24 13:25 IMPRESSION: Stable bilateral lower lung zone consolidations, btxv-cofkfcy-entf-right, compatible with pneumonitis/pneumonia. Reading Location: [facility] Pelvis X-Ray 09/27/24 13:50 IMPRESSION: No acute pelvic deformity. Reading Location: [facility] Assessment & Plan Assessment/Plan (1) Falls frequently: [...] additional 5-day course now presenting to the [facility] ED on 09/27/2024 withhistory of recurrent [...] reduced dose of clonazepam with transition to fci facility once precertification obtained with ongoing slow taper of these two agents to avoid withdrawal, continued on buspirone at this time, PT/OT/case management consulted for discharge planning with likely fci facilityneeds. 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 Charges/Coding Visit Charges Inpatient E&M: 99543 Init Hosp L3 09/27/24 4460 <Electronically signed by Anastasia Khan MD> Cosigner Signature (if applicable): CC: Dr. Anastasia Khan MD; Dr. 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 [facility] Medical History Anxiety and depression Fracture of [...] (Auto) 80.5 H, Lymph % (Auto) 11.4 L,Clare % (Auto) 5.9, Eos % (Auto) 1.1, [...] Sl. Cloudy, Urine pH 6.0, Ur Specific [place] 1.015, Urine Protein 30 H, Urine Glucose [...] IMPRESSION: No acute intracranial finding. Reading Location: [facility] Chest X-Ray 09/27/24 13:25 IMPRESSION: Stable bilateral lower lung zone consolidations, dgmr-whwntyz-rrrl-right, compatible with pneumonitis/pneumonia. Reading Location: [facility] Pelvis X-Ray 09/27/24 13:50 IMPRESSION: No acute pelvic deformity. Reading Location: [facility] Assessment & Plan Assessment/Plan (1) Falls frequently: [...] additional 5-day course now presenting to the [facility] ED on 09/27/2024 withhistory of recurrent [...] reduced dose of clonazepam with transition to [facility] facility once precertification obtained with ongoing slow taper of these two agents to avoid withdrawal, continued on buspirone at this time, PT/OT/case management consulted for dischargeplanning with likely [facility] facilityneeds. 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 Charges/Coding Visit Charges Inpatient E&M: 54523 Init Hosp L3 09/27/24 1501 Cosigner Signature (if applicable): CC: Dr. Anastasia Khan MD; Dr. Harish Luis MD~ Signed [facility]07-12-2025 Radiology Diagnostic study note [facility] Imaging Services [address] [place] [address] [id number] Pelvis 1 or 2 Views MR#: [id number] Acct: [id number] Name: CAROL DAVID Rep #: [id number] : 1950 F 74 From: Maria Victoria Rosario MD PCP: Dr. Harish Luis MD Status: REG E R Study:Pelvis 1 or 2 Views Date of Exam: 09/27/24 Exam# [id number] Ordering Dr: Jovanna Rosales DO PROCEDURE: PELVIS [...] IMPRESSION: No acute pelvic deformity. Reading Location: [facility] CC: Dr. Dimitry Rosales DO; Dr. Harish Luis MD ~ Petroleum Inspector Supervisor: Signed [facility]07-12-2025 Radiology Diagnostic study note [facility] Imaging Services [address] [place] [address] Chest 1 View (Portable) MR#: [id number] Acct: [id number] Name: CAROL DAVID Rep #: [id number] : 1950 F 74 From: Melissa Silvestre MD PCP: Dr. Harish Luis MD Status: REG E R Study:Chest 1 View (Portable) Date of Exam: 09/27/24 Exam# [id number] Ordering Dr: Jovanna Rosales DO PROCEDURE: CHEST 1 VIEW (PORTABLE) 09/27/2024 REASON FOR EXAM: FALLS TECHNIQUE: Frontal view of the chest. COMPARISON: Chest radiograph and CT chest 09/21/2024. FINDINGS: Hardware: Partially visualized spinal stimulator leads overlying the thoracic spine. Partially visualized dental hardware. Heart: Cardiac and mediastinal contours are stable. Lungs: No significant change in size of the bilateral lower lung zone consolidations, bypj-fznwiii-yxdi-right. No large pleural effusion or pneumothorax. Bones: Degenerative changes are identified within the thoracic spine. RAD/Chest 1 View (Portable) IMPRESSION: Stable bilateral lower lung zone consolidations, flof-aktvqpg-adep-right, compatible with pneumonitis/pneumonia. Reading Location: [facility] CC: Dr. Dimitry Rosales DO; Dr. Harish Luis MD ~ Petroleum Inspector Supervisor: Signed [facility]07-12-2025 Radiology Diagnostic study note [facility] Imaging Services [address] [facility] [place], [place] [id number] Brain/Head without Contrast MR#: [id number] Acct: [id number] Name: CAROL DAVID Rep #: [id number] : 1950 F 74 From: Melissa Silvestre MD PCP: Dr. Harish Luis MD Status: REG E R Study:Brain/Head without Contrast Date of Exa m: 09/27/24 Exam# [id number] Ordering Dr: Jovanna Rosales DO EXAM: BRAIN/HEAD [...] IMPRESSION: No acute intracranial finding. Reading Location: [facility] CC: Dr. Dimitry Rosales DO; Dr. Harish Luis MD ~ Petroleum Inspector Supervisor: Signed [facility]07-07-2025 Discharge summary [facility] Medical Records Department [address] [place] [address] Instructions for Home/Discharge Instructions 09/22/24 1807 MR#: [id number] Acct: [id number] Name: CAROL DAVID Rep #:[id number] : 1950 74 From: Anastasia Khan MD [...] DO; Dr. Harish Luis MD ~ Signed [facility]07-07-2025 Discharge summary [facility] Medical Records Department [address] [place] [address] Discharge Summary 09/22/24 1737 MR#: [id number] Acct: [id number] Name: CAROL DAVID Rep #:[id number] : 1950 74 From: Anastasia Khan MD PCP: Dr. Harish Luis MD Status:ADM I NO Location: [place] [address] Providers Date of Admission: 09/21/24 Date of [...] GERD, Tobacco use who presented to the [facility] 09/21/24 with history of recurrent [...] (Auto) 79.3 H, Lymph % (Auto) 11.2 L,Clare % (Auto) 8.7, Eos % (Auto) 0.2, Baso % (Auto) 0.4, Absolute Neuts (auto) 6.4, Absolute Lymphs (auto) 0.90, Nucleated RBC % 0 09/21/24 18:50: Urine Color Yellow, Urine Clarity Clear, Urine pH 6.0, Ur Specific [place] 1.015, Urine Protein 15 H, Urine Glucose [...] % (Auto) 61.9, Lymph % (Auto) 26.9, Clare% (Auto) 8.5, Eos % (Auto) 1.8, Baso [...] Final ABG: ABG 09/22/24 04:33 Specimen Type PEYOTN Sample Site VENOUS VBG pH 7.39 VBG pO2 39 VBG HCO3 29 H VBG Total CO2 30 VBG O2 Sat (Calc) 72 H VBG Base Excess 4 H POC Mix VBG pCO2 Pt Tmp 48.3 O2 Delivery Device Room Air Radiography Diagnostic Testing: Radiology Impression Brain CT 09/21/24 18:37 IMPRESSION: No acute abnormality Reading [facility] Chest X-Ray 09/21/24 19:18 IMPRESSION: Improvement in bilateral hilar and basilar infiltrates Reading [facility] Chest CT 09/21/24 20:09 IMPRESSION: Residual consolidating airspace disease in the left lower lobe right lower lobe to lesser degree consistent with history of aspiration pneumonia. Coronary artery calcification (CAC) is difficult to visualize due to presence ofmetallic streak artifact suspected metallic heart stents. Correlate with cardiac history. Small hiatal hernia Thoraco lumbar spine area anterior wedge compression fracture Reading Location: [facility] Brain CT 09/22/24 15:04 IMPRESSION: No acute intracranial process. Consider MR if symptoms persist. Reading Location: [id number] D/C Instructions DC O2, CPAP, BIPAP Needs [...] Health Service Charges/Coding Visit Charges Inpatient E&M: 64501 Disch Hosp >30min 09/22/24 1744 Cosigner Signature (if applicable): CC: Dr. Anastasia Khan MD; Dr. Harish Luis MD~ Signed [facility]07[facility] Progress note [facility] Medical Records Department [address] [place] [address] Progress Note - Hospitalist 09/22/24726 MR#: [id number] Acct: [id number] Name: CAROL DVAID Rep #:[id number] : 1950 74 From: Anastasia Khan MD PCP: Dr. Harish Luis MD Status:ADM I NO Location: [place] [address] Reason for Visit Reason for Visit: Diagnoses [...] (Auto) 79.3 H, Lymph % (Auto) 11.2 L,Clare % (Auto) 8.7, Eos % (Auto) 0.2, Baso % (Auto) 0.4, Absolute Neuts (auto) 6.4, Absolute Lymphs (auto) 0.90, Nucleated RBC % 0 09/21/24 18:50: Urine Color Yellow, Urine Clarity Clear, Urine pH 6.0, Ur Specific Newville 1.015, Urine Protein 15 H, Urine Glucose [...] % (Auto) 61.9, Lymph % (Auto) 26.9, Clare% (Auto) 8.5, Eos % (Auto) 1.8, Baso [...] 18:37 IMPRESSION: No acute abnormality Reading [facility] Chest X-Ray 09/21/24 19:18 IMPRESSION: Improvement in bilateral hilar and basilar infiltrates Reading [facility] Chest CT 09/21/24 20:09 IMPRESSION: Residual consolidating airspace disease in the left lower lobe right lower lobe to lesser degree consistent with history of aspiration pneumonia. Coronary artery calcification (CAC) is difficult to visualize due to presence ofmetallic streak artifact suspected metallic heart stents. Correlate with cardiac history. Small hiatal hernia Thoraco lumbar spine area anterior wedge compression fracture Reading Location[facility] Rhythm Strip Rhythm Strip: Sinus Rhythm Rate: [...] GERD, Tobacco use who presents to the [facility] ED on 09/21/24 with history of [...] Code status. Charges/Coding Visit Charges Inpatient E&M: 46519 Subs Hosp L2 09/22/24 1700 Cosigner Signature (if applicable): CC: ~ Signed ADDENDUM by Dr. Anastasia Khan MD on 09/22/24 at [address] brain without acute process. 09/22/24 1715 Cosigner Signature (if applicable): cc: ~* Signed [facility]07-07-2025 Radiology Diagnostic study note [facility] Imaging Services [address] [place] [address] 199311 Brain/Head without Contrast MR#: [id number] Acct: [id number] Name: CAROL DAVID Rep #: [id number] : 1950 F 74 From: Kayla Ham MD PCP: Dr. Harish Luis MD Status: ADM I NO Study:Brain/Head without Contrast Date of Exa m: 09/22/24 Exam# [id number] Ordering Dr: Kita Khan MD PROCEDURE: BRAIN/HEAD [...] Consider MR if symptoms persist. Reading Location: [facility] CC: Dr. Anastasia Khan MD; Dr. Harish Luis MD ~ Petroleum Inspector Supervisor: Signed [facility]07-07-2025 Progress note Author Anastasia Khan [facility] Note Date/Time September 22, 2024 5:15p m [facility] Medical Records Department [address] [place] [address] Progress Note - Hospitalist 09/22/24726 MR#: [id number] Acct: [id number] Name: CAROL DAVID Rep #:[id number] : 1950 74 From: Anastasia Khan MD PCP: Dr. Harish Luis MD Status:ADM I NO Location: [place] [id number]- 1 Reason for Visit Reason for Visit: [...] (Auto) 79.3 H, Lymph % (Auto) 11.2 L,Clare % (Auto) 8.7, Eos % (Auto) 0.2, Baso % (Auto) 0.4, Absolute Neuts (auto) 6.4, Absolute Lymphs (auto) 0.90, Nucleated RBC % 0 09/21/24 18:50: Urine Color Yellow, Urine Clarity Clear, Urine pH 6.0, Ur Specific [place] 1.015, Urine Protein 15 H, Urine Glucose [...] % (Auto) 61.9, Lymph % (Auto) 26.9, Clare% (Auto) 8.5, Eos % (Auto) 1.8, Baso [...] 18:37 IMPRESSION: No acute abnormality Reading [facility] Chest X-Ray 09/21/24 19:18 IMPRESSION: Improvement in bilateral hilar and basilar infiltrates Reading [facility] Chest CT 09/21/24 20:09 IMPRESSION: Residual consolidating airspace disease in the left lower lobe right lower lobe to lesser degree consistent with history of aspiration pneumonia. Coronary artery calcification (CAC) is difficult to visualize due to presence ofmetallic streak artifact suspected metallic heart stents. Correlate with cardiac history. Small hiatal hernia Thoraco lumbar spine area anterior wedge compression fracture Reading Location[facility] Rhythm Strip Rhythm Strip: Sinus Rhythm Rate: [...] GERD, Tobacco use who presents to the [facility] ED on 09/21/24 with history of [...] Code status. Charges/Coding Visit Charges Inpatient E&M: 08561 Subs Hosp L2 09/22/24 1700 <Electronically signed by Anastasia Khan MD> Cosigner Signature (if applicable): CC: ~ Signed ADDENDUM by Dr. Anastasia Khan MD on 09/22/24 at [address] brain without acute process. 09/22/24 171<Electronically signed by Anastasia Khan MD> Cosigner Signature (if applicable): cc: ~* Signed [facility] Work Phone: 1(666) 354-589807-07-2025 History and physical note Author Ricardo Fontana [facility] Note Date/Time September 22, 2024 6:42a m [facility] Medical Records Department [address] [place] [address] H&P Exam - Hospitalist 09/21/242007 MR#: [id number] Acct: [id number] Name: CAROL DAVID Rep #:[id number] : 1950 74 From: Ricardo Guy DO PCP: Dr. Harish Luis MD Status:ADM I NO [facility] HPI - General General Date of [...] of chronic oropharyngeal dysphagia who re-presents to [facility] ER with patient's noting increasingly frequent [...] to extend beyond 2 midnights. [facility] Medical History Aspiration pneumonia Hypoxia Fracture of [...] (Auto) 79.3 H, Lymph % (Auto) 11.2 L,Clare % (Auto) 8.7, Eos % (Auto) 0.2, Baso % (Auto) 0.4, Absolute Neuts (auto) 6.4, Absolute Lymphs (auto) 0.90, Nucleated RBC % 0 09/21/24 18:50: Urine Color Yellow, Urine Clarity Clear, Urine pH 6.0, Ur Specific Newville 1.015, Urine Protein 15 H, Urine Glucose [...] bilateral hilar and basilar infiltrates Reading Location: [facility] Imaging Services [address] [place] [address] Chest without Contrast MR#: [id number] Acct: [id number] Name: CAROL DAVID Rep #: [id number] : 1950 F 74 From: Claude Moralez DO PCP: Dr. Harish Luis MD Status: ADM BRITTNEE Study: Chest without Contrast Date of Exam: 09/21/24 Exam# [id number] Ordering Dr: Ricardo Justice DO PROCEDURE: CHEST [...] area anterior wedge compression fracture Reading [facility] CC: Dr. Ricardo Justice DO; Dr. Harish Luis MD ~ Petroleum Inspector Supervisor: Signed Assessment & Plan Assessment/Plan (1) Aspiration [...] possible rapid-onset dementia. Otherwise, we will minimize PILL MAKER-active medications, continue care plan and monitor for [...] Justice DO; Dr. Harish Luis MD~ Signed [facility] Work Phone: 1(858) 424-356007-07-2025 History and physical note [facility] Medical Records Department [address] [place] [address] H&P Exam - Hospitalist 09/21/242007 MR#: [id number] Acct: [id number] Name: CAROL DAVID Rep #:[id number] : 1950 74 From: Ricardo Guy DO PCP: Dr. Harish Luis MD Status:ADM I NO Location: [place] [id number]- 1 HPI - General General Date of [...] of chronic oropharyngeal dysphagia who re-presents to [facility] ER with patient's noting increasingly frequent [...] to extend beyond 2 midnights. [facility] Medical History Aspiration pneumonia Hypoxia Fracture of [...] (Auto) 79.3 H, Lymph % (Auto) 11.2 L,Clare % (Auto) 8.7, Eos % (Auto) 0.2, Baso % (Auto) 0.4, Absolute Neuts (auto) 6.4, Absolute Lymphs (auto) 0.90, Nucleated RBC % 0 09/21/24 18:50: Urine Color Yellow, Urine Clarity Clear, Urine pH 6.0, Ur Specific [place] 1.015, Urine Protein 15 H, Urine Glucose [...] bilateral hilar and basilar infiltrates Reading Location: [facility] Imaging Services [address] [place] [address] [id number] Chest without Contrast MR#: [id number] Acct: [id number] Name: CAROL DAVID Rep #: [id number] : 1950 F 74 From: Claude Moralez DO PCP: Dr. Harish Luis MD Status: ADM BRITTNEE Study: Chest without Contrast Date of Exam: 09/21/24 Exam# [id number] Ordering Dr: Ricardo Justice DO PROCEDURE: CHEST [...] area anterior wedge compression fracture Reading Location[facility] CC: Dr. Ricardo Justice DO; Dr. Harish Luis MD ~ Petroleum Inspector Supervisor: Signed Assessment & Plan Assessment/Plan (1) Aspiration [...] possible rapid-onset dementia. Otherwise, we will minimize PILL MAKER-active medications, continue care plan and monitorfor improvement. [...] Justice DO; Dr. Harish Luis MD~ Signed [facility]07-07-2025 Discharge summary Author Guilherme Collins [facility] Note Date/Time September 21, 2024 10:43 pm [facility] Medical Records Department [address] [place] [address] Emergency Department Summary 09/21/24 MR#: [id number] Acct: [id number] Name: CAROL DAVID Rep #:[id number] : 1950 74 From: Guilherme Collins MD PCP: Dr. Harish Luis MD Status:ADM I NO Location: [address] History of Present Illness Chief Complaint: [...] Prior similar symptoms: Yes Recent Ill[facility] Medical History Aspiration pneumonia Hypoxia Fracture of [...] soft nontender. Moving all 4 extremities. Normal straight line edger strength. Normal dorsi plantarflexion. She has chronic decreased range of motion of the right shoulder from a prior fracture and rotator cuff tear. That is chronic and not new. She has normal straight line edger strength. She has normal dorsi plantarflexion. No deformity to the extremities. Neurologically she is awake. She is alert. She thought it was August and just her in September. She knew the year was 2024. She knew [facility]. Const Vital Signs: 09/21/24 18:01 09/21/24 18:05 [...] 79.3 H Lymph % (Auto) 11.2 L Clare % (Auto) 8.7 Eos % (Auto) 0.2 [...] Clarity Clear Urine pH 6.0 Ur Specific Newville 1.015 Urine Protein 15 H Urine Glucose [...] (Auto) Neut % (Auto) Lymph % (Auto) Clare % (Auto) Eos % (Auto) Baso % (Auto) Absolute Neuts (auto) Absolute Lymphs (auto) Nucleated RBC % Sodium Potassium Chloride Carbon Dioxide Anion Gap BUN Creatinine Estim Creat Clear Calc Est GFR (MDRD) Non-Af BUN/Creatinine Ratio Glucose Lactic Acid 1.1 Calcium Total Bilirubin AST ALT Alkaline Phosphatase Total Protein Albumin Globulin Albumin/Globulin Ratio Urine Color Urine Clarity Urine pH Ur Specific Newville Urine Protein Urine Glucose (UA) Urine Ketones [...] 18:37 IMPRESSION: No acute abnormality [facility] Chest X-Ray 09/21/24 19:18 IMPRESSION: Improvement in bilateral hilar and basilar infiltrates Reading Location: [facility] Chest x-ray, 2 views, AP and lateral, [...] rate of 93 no acute signs of MN nor ischemianor dysrhythmia. Discharge Plan Triage Chief [...] MD [Primary Care Provider] - Print Language: British Disposition Disposition: Acute Care Hospital [facility] What to do if you have Problems For any increased pain, shortness of breath, bleeding, nausea or vomiting, chestpain, or any unexpected problems, contact your Primary Care Provider. Call [facility] ([phone]) or report to the closest Emergency Room. Call 911 if necessary. 09/21/243 <Electronically signed by Guilherme Collins MD> Cosigner Signature (if applicable): CC: Dr. Harish Luis MD ~ Signed [facility] Work Phone: 1(747) 392-181507-06-2025 Discharge summary [facility] Medical Records Department [address] [place] [address] Emergency Department Summary 09/21/24 MR#: [id number] Acct: [id number] Name: NIKCAROL Ebonie Rep #:[id number] : 1950 74 From: Guilherme Collins MD PCP: Dr. Harish Luis MD Status:ADM I NO Location: [address] History of Present Illness Chief Complaint: [...] so she came in here today. in [facility] discussed with me is concerned she is developing dementia. He states she has been more confused lately. She cannot use the microwave. He does not allow her to drive anymore. She has trouble with her computer at home. They deny any recent vomiting or diarrhea. No dysuria. Prior similar symptoms: Yes Recent Illness/Hospitalization: Yes [facility] Medical History Aspiration pneumonia Hypoxia Fracture of [...] soft nontender. Moving all 4 extremities. Normal straight line edger strength. Normal dorsi plantarflexion. She has chronic decreased range of motion of the right shoulder from a prior fractureand rotator cuff tear. That is chronic and not new. She has normal straight line edger strength. She has normal dorsi plantarflexion. No deformity to the extremities. Neurologically she is awake. She is alert. She thought it was August and just her in September. She knew the year was 2024. She knew [facility] was [facility]. Const Vital Signs: 09/21/24 18:01 09/21/24 18:05 [...] 79.3 H Lymph % (Auto) 11.2 L Clare % (Auto) 8.7 Eos % (Auto) 0.2 [...] Clarity Clear Urine pH 6.0 Ur Specific Newville 1.015 Urine Protein 15 H Urine Glucose [...] (Auto) Neut % (Auto) Lymph % (Auto) Clare % (Auto) Eos % (Auto) Baso % (Auto) Absolute Neuts (auto) Absolute Lymphs (auto) Nucleated RBC % Sodium Potassium Chloride Carbon Dioxide Anion Gap BUN Creatinine Estim Creat Clear Calc Est GFR (MDRD) Non-Af BUN/Creatinine Ratio Glucose Lactic Acid 1.1 Calcium Total Bilirubin AST ALT Alkaline Phosphatase Total Protein Albumin Globulin Albumin/Globulin Ratio Urine Color Urine Clarity Urine pH Ur Specific [place] Urine Protein Urine Glucose (UA) Urine Ketones [...] 18:37 IMPRESSION: No acute abnormality Reading [facility] Chest X-Ray 09/21/24 19:18 IMPRESSION: Improvement in bilateral hilar and basilar infiltrates Reading [facility] Chest x-ray, 2 views, AP and lateral, [...] rate of 93 no acute signs of [place] nor ischemianor dysrhythmia. Discharge Plan Triage Chief [...] MD [Primary Care Provider] - Print Language: British Disposition Disposition: Acute Care Hospital [facility] What to do if you have Problems For any increased pain, shortness of breath, bleeding, nausea or vomiting, chestpain, or any unexpected problems, contact your Primary Care Provider. Call [facility] ([phone]) or report tothe closest Emergency Room. Call 911 if necessary. 09/21/244 Cosigner Signature (if applicable): CC: Dr. Harish Luis MD ~ Signed [facility]07-06-2025 Radiology Diagnostic study note [facility] Imaging Services [address] [place], [place] [address] Chest without Contrast MR#: [id number] Acct: [id number] Name: CAROL DAVID Rep #: [id number] : 1950 F 74 From: Pet er Peer DO PCP: Dr. Harish Luis MD Status: ADM I NO Study:Chest without Contrast Date of Exam: 09/21/24 Exam# [id number] Ordering Dr: Ricardo Bennett DO PROCEDURE: CHEST [...] area anterior wedge compression fracture Reading [facility] CC: Dr. Ricardo Justice DO; Dr. Harish Luis MD ~ Petroleum Inspector Supervisor: Signed [facility]07-06-2025 Evaluation note* Diagnosis Onset Date Resolution Status Admit Date Frequent falls inactive September 21, 2024 8:12pm Oropharyngeal dysphagia inactive J mary 2024 8:12pm Ambulatory dysfunction deleted Ju 2024 8:12pm Aspiration pneumonia deleted September 21, [...] 29 3:45pm Debility inactive September 29 3:45pm [facility] Work Phone: 1(919) 401-538407-06-2025 Radiology Diagnostic study note [facility] Imaging Services [address] [place] [address] Chest PA and Lateral MR#: [id number] Acct: [id number] Name: CAROL DAVID Rep #: [id number] : 1950 F 74 From: Pet er Peer DO PCP: Dr. Harish Luis MD Status: REG E R Study:Chest PA and Lateral Date of Exam: 09/21/24 Exam# [id number] Ordering Dr: Hilda Collins MD PROCEDURE: CHEST [...] bilateral hilar and basilar infiltrates Reading Location: [facility] CC: Dr. Guilherme Collins MD; Dr. Harish Luis MD ~ Petroleum Inspector Supervisor: Signed [facility]07-06-2025 Radiology Diagnostic study note [facility] Imaging Services [address] [place] [address] Brain/Head without Contrast MR#: [id number] Acct: [id number] Name: CAROL DAVID Rep #: [id number] : 1950 F 74 From: Maria Victoria Rosario MD PCP: Dr. Harish Luis MD Status: REG E R Study:Brain/Head without Contrast Date of Exa m: 09/21/24 Exam# [id number] Ordering Dr: Hilda Collins MD PROCEDURE: BRAIN/HEAD [...] Contrast IMPRESSION: No acute abnormality Reading Location: [facility] CC: Dr. Guilherme Collins MD; Dr. Harish Luis MD ~ Petroleum Inspector Supervisor: Signed [facility]06-13-2025 Discharge summary [facility] Medical Records Department [address] [place] [address] Instructions for Home/Discharge Instructions 08/29/24 1250 MR#: [id number] Acct: [id number] Name: CAROL DAVID Rep #:[id number] : 1950 74 From: Christofer ashby DO [...] CC: Dr. Harish Luis MD ~ Signed [facility]06[facility]13[facility] Progress note Author Christofer [facility] Note Date/Time August 28, 2024 1:06 pm [facility] Medical Records Department [address] [place] [address] Progress Note - Hospitalist 08/28/24 1113 MR#: [id number] Acct: [id number] Name: CAROL DAVID Rep #:[id number] : 1950 74 From: Christofer ashby DO PCP: Dr. Harish Luis MD Status:ADM I N Location: [place] [address] Reason for Visit Reason for Visit: Diagnoses [...] 86.9 H, Lymph % (Auto) 7.0 L, Clare % (Auto) 5.1, Eos % (Auto) 0.2, [...] Sl Cldy, Urine pH 6.0, Ur Specific [place] 1.015, Urine Protein 30 H, Urine Glucose [...] lower lobe. Otherwise grossly unchanged Reading Location: [facility] Physical Exam Const alert and no apparent [...] Patient is a 74-year-old female who presented [facility] ED on 08/27/2024 with fevers, cough [...] 35 minutes. Charges/Coding Visit Charges Inpatient E&M: 26094 Subs Hosp L2 08/28/24 1306 <Electronically signed by Christofer Espino DO> Cosigner Signature (if applicable): CC: ~ Signed [facility] Work Phone: 1(464) 480-604306-12-2025 Progress note [facility] Medical Records Department [address] [place] [address] Progress Note - Hospitalist 08/28/24 1113 MR#: [id number] Acct: [id number] Name: CAROL DAVID Rep #:[id number] : 1950 74 From: Christofer ashby DO PCP: Dr. Harish Luis MD Status:ADM I N Location: [place] [address] Reason for Visit Reason for Visit: Diagnoses [...] 103/62 93 Room Air 08/28/24 09:45 08/28/24 10:08/28/24 09:45 08/28/24 10:09 08/28/24 09:45 08/28/24 09:45 [...] 86.9 H, Lymph % (Auto) 7.0 L, Clare % (Auto) 5.1, Eos % (Auto) 0.2, [...] Sl Cldy, Urine pH 6.0, Ur Specific [place] 1.015,Urine Protein 30 H, Urine Glucose (UA) [...] 278, MPV 9.8, Sodium 140, Potassium 3.3, Dnmwiabu217 H, Carbon Dioxide 20.4 L, Anion Gap11, [...] lower lobe. Otherwise grossly unchanged Reading Location: [facility] Physical Exam Const alert and no apparent [...] Patient is a 74-year-old female who presented [facility] ED on 08/27/2024 with fevers, cough [...] 35 minutes. Charges/Coding Visit Charges Inpatient E&M: 72485 Subs Hosp L2 08/28/24 1306 Cosigner Signature (if applicable): CC: ~ Signed [facility]06-12-2025 History and physical note Author Christofer Espino [facility] Note Date/Time August 28, 2024 7:53 am [facility] Medical Records Department [address] [place] [address] H&P Exam - Hospitalist 08/27/24 1712 MR#: [id number] Acct: [id number] Name: CAROL DAVID Rep #:[id number] : 1950 74 From: Christofer ashby DO PCP: Dr. Harish Luis MD Status:ADM I N Location: [place] [address] HPI - General General Date of Admission: 08/27/24 Date of Service: 08/27/24 Chief Complaint: Fever and cough with confusion HPI Narrative CAROL DAVID, is a 74 F who presented to [facility] ED on 08/27/2024 with fevers, cough [...] [facility]. On [...] to tell me that she was at [facility] and that the year was 2024. [...] be admitted for further management. [facility] Medical History (Updated 08/28/24 @ 07:52 [...] 86.9 H, Lymph % (Auto) 7.0 L, Clare % (Auto) 5.1, Eos % (Auto) 0.2, [...] Sl Cldy, Urine pH 6.0, Ur Specific [place] 1.015, Urine Protein 30 H, Urine Glucose (UA) Normal, Urine Ketones Negative, Urine Occult Blood Negative, Urine Nitrite Negative, Urine Bilirubin Negative, Urine Urobilinogen Normal, Ur Leukocyte Esterase Negative Assessment & Plan Assessment/Plan (1) Encephalopathy due to infection: (2) Aspiration pneumonia: PLAN: Plan Patient is a 74-year-old female who presented [facility] ED on 08/27/2024 with fevers, cough [...] 75 minutes. Charges/Coding Visit Charges Inpatient E&M: 35991 Init Hosp L3 08/28/24 0752 <Electronically signed by Christofer Espino DO> Cosigner Signature (if applicable): CC: Dr. Christofer Espino DO; Dr. Harish Luis MD~ Signed [facility] Work Phone: 1([phone]) 490-728806-12-2025 History and physical note [facility] Medical Records Department [address] [place] [address] H&P Exam - Hospitalist 08/27/24 1712 MR#: [id number] Acct: [id number] Name: CAROL DAVID Rep #:[id number] : 1950 74 From: Christofer ashby DO PCP: Dr. Harish Luis MD Status:ADM I N Location: [place] [address] HPI - General General Date of Admission: 08/27/24 Date of Service: 08/27/24 Chief Complaint: Fever and cough with confusion HPI Narrative CAROL DAVID, is a 74 F who presented to [facility] ED on 08/27/2024 with fevers, cough [...] quickly then [facility]. On [...] to tell me that she was at [facility] and that the year was 2024. [...] be admitted for further management. [facility] Medical History (Updated 08/28/24 @ 07:52 [...] 86.9 H, Lymph % (Auto) 7.0 L, Clare % (Auto) 5.1, Eos % (Auto) 0.2, [...] Sl Cldy, Urine pH 6.0, Ur Specific [place] 1.015,Urine Protein 30 H, Urine Glucose (UA) Normal, Urine Ketones Negative, Urine Occult Blood Negative,Urine Nitrite Negative, Urine Bilirubin Negative, Urine Urobilinogen Normal, Ur Leukocyte Esterase Negative Assessment & Plan Assessment/Plan (1) Encephalopathy due to infection: (2) Aspiration pneumonia: PLAN: Plan Patient is a 74-year-old female who presented [facility] ED on 08/27/2024 with fevers, cough [...] 75 minutes. Charges/Coding Visit Charges Inpatient E&M: 89818 Init Hosp L3 08/28/24 2206 Cosigner Signature (if applicable): CC: Dr. Christofer Espino DO; Dr. Harish Luis MD~ Signed [facility]06-11-2025 Discharge summary Author Huber Ballard [facility] Note Date/Time August 27, 2024 6:51 pm [facility] Medical Records Department [address] [place] [address] Emergency Department Summary 08/27/24 MR#: [id number] Acct: [id number] Name: CAROL DAVID Rep #:[id number] : 1950 74 From: Huber Ballard MD PCP: Dr. Harish Luis MD Status:REG E R Location: ED ADDENDUM by Dr. Huber Ballard MD on 08/27/24 at 1851 Sinus tachycardia rate of 111. WV interval 144 ms cures duration 68 ms. QT duration 218 ms. Michie is normal. She has evidence of low [...] 86.9 H Lymph % (Auto) 7.0 L Clare % (Auto) 5.1 Eos % (Auto) 0.2 [...] Sl Cldy Urine pH 6.0 Ur Specific Newville 1.015 Urine Protein 30 H Urine Glucose [...] lower lobe. Otherwise grossly unchanged Reading Location: [facility] Management Discussion w/another healthcare provider: Hospitalist [...] laboratories also and x-rays), Discussing w/Patient &/or Family/Postal Service Mail Processor, Discussing w/Consultants (Discussed with hospitalist), Arranging Admission or Transfer and - (Treatment for infectious cephalopathy/sepsis due to pneumonia) Discharge Plan Dx/Rx/DC Orders Clinical Impression: Sepsis, Encephalopathy due to infection, Left lower lobe pulmonary infiltrate Disposition Disposition: Acute Care Hospital [facility] What to do if you have Problems For any increased pain, shortness of breath, bleeding, nausea or vomiting, chestpain, or any unexpected problems, contact your Primary Care Provider. Call [facility] ([phone]) or report to the closest Emergency Room. Call 911 if necessary. 08/27/24 1724 <Electronically signed by Huber Ballard MD> Cosigner Signature (if applicable): CC: Dr. Harish Luis MD ~ Signed [facility] Work Phone: 1([phone]) 938-995306-11-2025 Evaluation note* Diagnosis Onset Date Resolution Status Admit Date Aspiration pneumonia acute August 27, 2024 5:13pm Encephalopathy due to infection acut e August 27, 2024 5:13pm [facility] Work Phone: 1([phone]) 361-943806-11-2025 Evaluation note* Diagnosis Onset Date Resolution Status Admit Date Aspiration pneumonia acute August 27, 2024 5:13pm Encephalopathy due to infection reso lved August 27, 2024 5:13pm Aspiration pneumonia acute September 21, 2024 8:21pm Confusion acute September 21, 2024 8:21pm Frequent falls acute September 21, 2024 8:21pm [facility] Work Phone: 1(321) 169-641006-11-2025 Evaluation note* Diagnosis Onset Date Resolution Status Admit Date Aspiration pneumonia acute August 27, 2024 5:13pm Encephalopathy due to infection reso lved August 27, 2024 5:13pm Ambulatory dysfunction acute [facility] 2024 8:12pm Aspiration pneumonia acute September 21, 2024 8:12pm Fever acute September 21, 2024 8:12pm Frequent falls acute September 21, 2024 8:12pm Generalized weakness acute September 21, 2024 8:12pm Oropharyngeal dysphagia acute J mary2024 8:12pm Toxic metabolic encephalopathy acute September 21, 2024 8:12pm [facility] Work Phone: 1(915) 317-135106-11-2025 Evaluation note* Diagnosis Onset Date Resolution Status Admit Date Aspiration pneumonia acute August 27, 2024 5:13pm Encephalopathy due to infection reso lved August 27, 2024 5:13pm Ambulatory dysfunction acute [facility] 2024 8:12pm Aspiration pneumonia acute September 21, 2024 8:12pm Fever acute September 21, 2024 8:12pm Frequent falls acute September 21, 2024 8:12pm Generalized weakness acute September 21, 2024 8:12pm Oropharyngeal dysphagia acute J mary 2024 8:12pm Toxic metabolic encephalopathy acute September 21, 2024 8:12pm Adult failure to thrive acute J mary 2024 2:48pm Falls frequently acute September 2:48pm Weakness acute September 27 2:48pm [facility] Work Phone: 1([phone]) 260-638306-11-2025 Evaluation note* Diagnosis Onset Date Resolution Status Admit Date Encephalopathy due to infection reso lved August 27, 2024 5:13pm Aspiration pneumonia deleted August 27, 2024 5:13pm Frequent falls inactive September 21, 2024 8:12pm Oropharyngeal dysphagia inactive J mary 2024 8:12pm Ambulatory dysfunction deleted [facility] 2024 8:12pm Aspiration pneumonia deleted September 21, 2024 8:12pm Fever deleted September 21, 2024 8:12pm Generalized weakness deleted September 21, 2024 8:12pm Toxic metabolic encephalopathy delet ed September 21, 2024 8:12pm Adult failure to thrive acute J mary 2024 2:48pm Falls frequently acute September 2:48pm Weakness acute September 27 2:48pm Adult failure to thrive acute J 2024 3:45pm Anxiety acute September 29 3:45pm Dysphagia acute September 29 3:45pm GERD (gastroesophageal reflu x disease) acute September 29, 2024 3:45pm Insomnia acute September 29 3:45pm Multiple falls acute September 29, 2024 3:45pm Weight loss acute September 29 3:45pm Debility inactive September 29 3:45pm [facility] Work Phone: 1([phone]) 161-234506-11-2025 Discharge summary [facility] Medical Records Department [address] [place] [address] Emergency Department Summary 08/27/24 MR#: [id number] Acct: [id number] Name: CAROL DAVID Rep #:[id number] : 1950 74 From: Huber Ballard MD PCP: Dr. Harish Luis MD Status:REG E R Location: ED ADDENDUM by Dr. Huber Ballard MD on 08/27/24 at 1851 Sinus tachycardia rate of 111. WV interval 144 ms cures duration 68 ms. QT duration 218 ms. Michie isnormal. She has evidence of low voltage. [...] 86.9 H Lymph % (Auto) 7.0 L Clare % (Auto) 5.1 Eos % (Auto) 0.2 [...] Sl Cldy Urine pH 6.0 Ur Specific Newville 1.015 Urine Protein 30 H Urine Glucose [...] lower lobe. Otherwise grossly unchanged Reading Location: [facility] Management Discussion w/another healthcare provider: Hospitalist [...] laboratories also and x-rays), Discussing w/Patient &/or Family/Postal Service Mail Processor, Discussing w/Consultants (Discussed with hospitalist), Arranging Admission or Transfer and - (Treatment for infectious cephalopathy/sepsis due to pneumonia) Discharge Plan Dx/Rx/DC Orders Clinical Impression: Sepsis, Encephalopathy due to infection, Left lower lobe pulmonary infiltrate Disposition Disposition: Acute Care Hospital [facility] What to do if you have Problems For any increased pain, shortness of breath, bleeding, nausea or vomiting, chestpain, or any unexpected problems, contact your Primary Care Provider. Call [facility] ([phone]) or report tothe closest Emergency Room. Call 911 if necessary. 08/27/24 1724 Cosigner Signature (if applicable): CC: Dr. Harish Luis MD ~ Signed [facility]06-11-2025 Radiology Diagnostic study note [facility] Imaging Services [address] [place] [address] Chest 1 View (Portable) MR#: [id number] Acct: [id number] Name: CAROL DAVID Rep #: [id number] : 1950 F 74 From: Kayla Ham MD PCP: Dr. Harish Luis MD Status: REG E R Study:Chest 1 View (Portable) Date of Exam: 08/27/24 Exam# [id number] Ordering Dr: Malcom Ballard MD PROCEDURE: CHEST [...] lower lobe. Otherwise grossly unchanged Reading Location: [facility] CC: Dr. Harish Luis MD; Dr. Huber Ballard MD ~ Petroleum Inspector Supervisor: Signed [facility]03-19-2025 Radiology Diagnostic study note [facility] Imaging Services [address] [place] [address] Shoulder min 2 Views MR#: [id number] Acct: [id number] Name: CAROL DAVID Rep #: [id number] : 1950 F 74 From: Robert Mancuso DO PCP: Dr. Harish Luis MD Status: REG E R Study:Shoulder min 2 Views Date of Exam: 06/04/24 Exam# [id number] Ordering Dr: Mat White DO PROCEDURE: Right [...] White DO; Dr. Harish Luis MD ~ Petroleum Inspector Supervisor: Signed [facility]08-16-2023 Discharge summary Author Armando Miranda [facility] November 01, 2022 11:03am Note Date/Time November 01, 2022 7: 51am [facility] Medical Records Department [address] [place] [address] Emergency Department Summary 11/01/22 MR#: [id number] Acct: [id number] Name: CAROL DAVID Rep #:[id number] : 1950 72 From: Armando Santamaria PCP: Dr. Harish Luis MD Status:ADM I N Location: [place] [address] HPI History of Present Illness Chief Complaint: [...] bisacodyl 10 mg rectal suppository 10 mg WV DAILY PRN Constipation 30 days #0 ea10/14/22 [...] (Auto) 44.7 L Lymph % (Auto) 38.1 Clare % (Auto) 10.0 Eos % (Auto) 5.0 [...] your Primary Care Provider. Call [facility] ([phone]) or report to the closest Emergency Room. Call 911 if necessary. 11/01/22 1103 <Electronically signed by Armando Miranda DO> Cosigner Signature (if applicable): CC: Dr. Harish Luis MD ~ Signed [facility] Work Phone: [phone]) 269-950107-29-2023 Discharge summary Author Zia Posey [facility] October 14, 2022 8:34am Note Date/Time October 14, 2022 8:25 am [facility] Medical Records Department [address] [place] [address] Instructions for Home/Discharge Instructions 10/14/2224 MR#: [id number] Acct: [id number] Name: CAROL DAVID E[place] Rep #:[id number] : 1950 72 From: Zia Rivero PCP: [...] and then as needed for constipation Available efvx-xdk-frdnzjc. bisacodyl 10 mg Suppository 10 mg WV DAILY PRN (Reason: Constipation) 30 Days Qty: 0 0RF Rx Instructions: Ycdl-hyz-cmcpdyk. polyethylene glycol 3350 [Miralax] 17 gram/dose powder [...] MD; Dr. Nallely Mccann MD ~ Signed [facility] Work Phone: [phone]) [phone] Progress note Author Nallely Mccann [facility] October 14, 2022 8:22am Note Date/Time October 14, 2022 8:22 am [facility] Medical Records Department [address] [place] [address] Progress Note - Surgery 10/14/22819 MR#: [id number] Acct: [id number] Name: CAROL DAVID Rep #:[id number] : 1950 72 From: Nallely Mccann MD PCP: Dr. Harish Luis MD Status:ADM I N Location: [place] LI215-4 Subjective Subjective Per patient and nursing she [...] Sl. Cloudy, Urine pH 6.0, Ur Specific [place] 1.015, Urine Protein Negative, Urine Glucose (UA) [...] 78.3 H, Lymph % (Auto) 12.0 L, Clare % (Auto) 9.2, Eos % (Auto) 0.0, [...] Neut % (Auto) 62.2, Lymph % (Auto) 27.8,Clare % (Auto) 8.4, Eos % (Auto) 0.9, [...] 11:53 EDT Reading Location ID and State: [facility] / [place] , Service support , Physical Exam Const alert, oriented x3 [...] retention-management per hospitalist. Nallely Mccann M.D. Pager: [phone] [facility] [address] [place] [address], [facility], [address] [place] [address] Office: [phone] Charges/Coding Visit Charges Inpatient E&M: 75994 Subs Hosp L2 10/14/22 0822 <Electronically signed by Nallely Mccann MD> Cosigner Signature (if applicable): CC: ~ Signed [facility] Work Phone: [phone]) [phone] Consult note Author Nallely Mccann [facility] October 14, 2022 8:20am Note Date/Time October 13, 2022 1:53 pm [facility] Medical Records Department [address] [place] [address] Consultation - Surgical 10/13/22 1353 MR#: [id number] Acct: [id number] Name: CAROL DAVID Rep #:[id number] : 1950 72 From: Nallely Mccann MD PCP: Dr. Harish Luis MD Status:ADM I N Location: [place] YH681-5 Assessment & Plan Assessment/Plan (1) Abnormal CT [...] to urinary retention. Nallely Mccann M.D. Pager: [phone] [facility] [address] [place] [address], [facility], [address] [place] [address] Office: [phone] HPI Consult Data Date of Consult: 10/14/22 [...] getting a IV fluid bolus. [facility] Medical History Allergic rhinitis Ambulates with [...] Sl. Cloudy, Urine pH 6.0, Ur Specific [place] 1.015, Urine Protein Negative, Urine Glucose (UA) [...] 78.3 H, Lymph % (Auto) 12.0 L, Clare % (Auto) 9.2, Eos % (Auto) 0.0, [...] EDT , Charges/Coding Visit Charges Inpatient E&M: 01199 Init Hosp L3 10/14/22 0820 <Electronically signed by Nallely Mccann MD> Cosigner Signature (if applicable): CC: Dr. Harish Luis MD; Dr. Nallely Mccann MD~ Signed [facility] Work Phone: [phone]) [phone] Discharge summary Author Sheylaeli Slade [facility] October 13, 2022 10:21pm Note Date/Time October 13, 2022 11:2 1am [facility] Medical Records Department [address] [place] [address] Emergency Department Summary 10/13/22 MR#: [id number] Acct: [id number] Name: CAROL DAVID Rep #:[id number] : 1950 72 From: Sheyla Santamaria PCP: Dr. Harish Luis MD Status:ADM I N Location: [place] MA547-2 HPI HPI - GI History of Present [...] time she also had an EGDfor dysphagia. [facility] Medical History Allergic rhinitis Ambulates with [...] (Auto) Neut % (Auto) Lymph % (Auto) Clare % (Auto) Eos % (Auto) Baso % [...] Sl. Cloudy Urine pH 6.0 Ur Specific [place] 1.015 Urine Protein Negative Urine Glucose (UA) [...] 78.3 H Lymph % (Auto) 12.0 L Clare % (Auto) 9.2 Eos % (Auto) 0.0 [...] Color Urine Clarity Urine pH Ur Specific [place] Urine Protein Urine Glucose (UA) Urine Ketones [...] ofthe abdomen Disposition Disposition: Acute Care Hospital [facility] Discharge Date/Time: 10/13/22 15:24 What to do if you have Problems For any increased pain, shortness of breath, bleeding, nausea or vomiting, chestpain, or any unexpected problems, contact your Primary Care Provider. Call [facility] ([phone]) or report to the closest Emergency Room. Call 911 if necessary. 10/13/222220 <Electronically signed by Sheyla Slade DO> Cosigner Signature (if applicable): CC: Dr. Harish Luis MD ~ Signed [facility] Work Phone: [phone]) 785-491607-28-2023 History and physical note Author Zia Posey [facility] October 13, 2022 3:13pm Note Date/Time October 13, 2022 2:42 pm [facility] Medical Records Department [address] [place] [address] H&P Exam - Hospitalist 10/13/22 1440 MR#: [id number] Acct: [id number] Name: CAROL DAVID Rep #:[id number] : 1950 72 From: Zia Rivero PCP: Dr. Harish Luis MD Status:ADM I N Location: [place] [address]-1 HPI - General General Date of Admission: [...] plan. Patient is further admitted. [facility] Medical History Allergic rhinitis Ambulates with [...] Sl. Cloudy, Urine pH 6.0, Ur Specific [place] 1.015, Urine Protein Negative, Urine Glucose (UA) [...] 78.3 H, Lymph % (Auto) 12.0 L, Clare % (Auto) 9.2, Eos % (Auto) 0.0, [...] no meaningful recovery Total time spent in xldo-uy-kqga encounter in discussion of advanced directive 17 [...] Sl. Cloudy, Urine pH 6.0, Ur Specific [place] 1.015, Urine Protein Negative, Urine Glucose (UA) [...] 78.3 H, Lymph % (Auto) 12.0 L, Clare % (Auto) 9.2, Eos % (Auto) 0.0, [...] 0.7 L Charges/Coding Visit Charges Inpatient E&M: 60284 Init Hosp L3 Procedures Hospitalists Procedures: 16347 Advncd Care Plan 30 Min 10/13/22 1513 <Electronically signed by Zia Posey MD> Cosigner Signature (if applicable): CC: Dr. Zia Posey MD; Dr. Harish Luis MD~ Signed [facility] Work Phone: Discharge summary Author Christofer Espino [facility] Note Date/Time August 29, 2024 12:5 2pm [facility] Medical Records Department [address] [place] [address] Instructions for Home/Discharge Instructions 08/29/24 1250 MR#: [id number] Acct: [id number] Name: CAROL DAVID Rep #:[id number] : 1950 74 From: Christofer ashby DO [...] CC: Dr. Harish Luis MD ~ Signed [facility] Work Phone: Discharge summary Author Anastasia Khan [facility] Note Date/Time September 22, 2024 5:44p [facility] Medical Records Department [address] [place] [address] Discharge Summary 09/22/24 1737 MR#: [id number] Acct: [id number] Name: CAROL DAVID Rep #:[id number] : 1950 74 From: Anastasia Khan MD PCP: Dr. Harish Luis MD Status:ADM I NO Location: [place] [address] Providers Date of Admission: 09/21/24 Date of [...] GERD, Tobacco use who presented to the [facility] EDon 09/21/24 with history of recurrent [...] (Auto) 79.3 H, Lymph % (Auto) 11.2 L,Clare % (Auto) 8.7, Eos % (Auto) 0.2, Baso % (Auto) 0.4, Absolute Neuts (auto) 6.4, Absolute Lymphs (auto) 0.90, Nucleated RBC % 0 09/21/24 18:50: Urine Color Yellow, Urine Clarity Clear, Urine pH 6.0, Ur Specific [place] 1.015, Urine Protein 15 H, Urine Glucose [...] % (Auto) 61.9, Lymph % (Auto) 26.9, Clare% (Auto) 8.5, Eos % (Auto) 1.8, Baso [...] 18:37 IMPRESSION: No acute abnormality [facility] Chest X-Ray 09/21/24 19:18 IMPRESSION: Improvement in bilateral hilar and basilar infiltrates Reading [facility] Chest CT 09/21/24 20:09 IMPRESSION: Residual consolidating airspace disease in the left lower lobe right lower lobe to lesser degree consistent with history of aspiration pneumonia. Coronary artery calcification (CAC) is difficult to visualize due to presence ofmetallic streak artifact suspected metallic heart stents. Correlate with cardiac history. Small hiatal hernia Thoraco lumbar spine area anterior wedge compression fracture Reading Location: [facility] Brain CT 09/22/24 15:04 IMPRESSION: No acute intracranial process. Consider MR if symptoms persist. Reading Location: [id number] D/C Instructions DC O2, CPAP, BIPAP Needs [...] Simvastatin 80mg Discharge Plan Admission Admit Date/Time: 07/06/25 20:12 Primary Reason for Your Visit: Encephalopathy, [...] Health Service Charges/Coding Visit Charges Inpatient E&M: 10683 Disch Hosp >30min 09/22/244 <Electronically signed by Anastasia Khan MD> Cosigner Signature (if applicable): CC: Dr. Anastasia Khan MD; Dr. Harish Luis MD~ Signed [facility] Work Phone: Discharge summary Author Anastasia Khan [facility] Note Date/Time September 22, 2024 6:08p m [facility] Medical Records Department [address] [place] [address] Instructions for Home/Discharge Instructions 09/22/241806 MR#: [id number] Acct: [id number] Name: CAROL DAVID Rep #:[id number] : 1950 74 From: Anastasia Khan MD [...] can be placed): Home Health Service 09/22/24 2393<Electronically signed by Anastasia Khan MD>Anastasia Khan MD CC: Dr. Ricardo Justice DO; Dr. Harish Luis MD ~ Signed [facility] Work Phone: Discharge summary Author Ricardo Padilla [facility] Note Date/Time September 29, 2024 2:53 pm [facility] Medical Records Department [address] [place] [address] Discharge Summary 09/29/24 1442 MR#: [id number] Acct: [id number] Name: CAROL DAVID Rep #:[id number] : 1950 74 From: Ricardo Padilla MD PCP: Dr. Harish Luis MD Status:ADM I N Location: [facility] MS234-3 Providers Date of Admission: 09/27/24 Date of [...] reduced. Requested for PT OT eval and psychiatric social worker to assist with disposition. [facility] for [facility] pending bed availability 2. History of [...] % (Auto) 47.5, Lymph % (Auto) 36.5, Clare% (Auto) 9.3, Eos % (Auto) 5.4 H, [...] PO Q4H PRN PRN (Reason: Fever, pain 1-10/10) Qty: 0 0RF Continued buspirone 7.5 MG [...] in before D/C Order can be placed): [facility] Charges/Coding Visit Charges Inpatient E&M: 74005 Disch Hosp >30min 09/29/24 1453 <Electronically signed by Ricardo Padilla MD> Cosigner Signature (if applicable): CC: Dr. Ricardo Padilla MD; Dr. Harish Luis MD~ Signed [facility] Work Phone: Discharge summary Author Ricardo Padilla [facility] Note Date/Time September 29, 2024 2:55 pm [facility] Medical Records Department [address] [place] [id number] Transfer to [facility] MR#: [id number] Acct: [id number] Name: CAROL DAVID Rep #:[id number] : 1950 74 From: Ricardo Padilla MD PCP: Dr. Harish Luis MD Status:ADM I N Certification of patient admission REQUIRED AT TIME OF ADMISSION. I CERTIFY THAT POST-HOSPITAL F SERVICES ARE REQUIRED TO BE GIVEN ON AN IN-PATIENT BASIS BECAUSE OF THE ABOVE NAMED PATIENT'S NEED FOR CARE HOME CARE ON A CONTINUING BASIS FOR THE CONDITION(S) FOR WHICH HE/SHE WAS RECEIVING IN-PATIENT HOSPITAL SERVICES PRIOR TO HIS/HER TRANSFER TO THE [facility]. 09/29/24 1455<Electronically signed by Ricardo Padilla MD> Diet Diet [...] reduced. Requested for PT OT eval and psychiatric social worker to assist with disposition. Plans for [facility] to [facility] pending bed availability 2. History of [...] in before D/C Order can be placed): [facility] 09/29/24 0273 <Electronically signed by Ricardo Padilla MD> Cosigner Signature (if applicable): CC: Dr. Anastasia Khan MD; Dr. Harish Luis MD ~ [facility] Work Phone: Discharge summary Author Harish Luis [facility] Note Date/Time October 03, 2024 2:45 pm [facility] Medical Records Department [address] [place] [address] Discharge Summary 10/03/24 1442 MR#: [id number] Acct: [id number] Name: CAROL DAVID Rep #:[id number] : 1950 74 From: Harish Luis MD PCP: Dr. Harish Luis MD Status:ADM I N Location: [place] [address] Providers Date of Admission: 09/29/24 Primary Care Physician: Dr. Harish Luis MD Consultations 10/01/24 07:22 Consult: Gastroenterology Routine Consulting Provider: [facility] Reason for Consult: Esophageal retention per speech therapy. EMERGENT Consult: No MD Notified: Yes Date Notified: 10/01/24 Time Notified: 07:22 Method of Notification: Text Reason For Visit: [...] __x__ GRD contraindicated. 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 The following psychotropic medication was [...] Freq: Status: Active Protocol: Document 10/01/24 11:57 SLA (Rec: 10/01/24 11:57 SLA [id number]) Nutrition Malnutrition [...] Continue liberal regular diet - consistency per MUNITIONS HANDLER- d Recommendations/ /t signs and symptoms of [...] can be placed): Against Medical Advice 10/03/24 8325 <Electronically signed by Harish Luis MD> Cosigner Signature (if applicable): CC: Dr. Harish Luis MD~ Signed [facility] Work Phone: Evaluation noteNo assessment information available [facility] Work Phone: Evaluation note* Diagnosis Onset Date Resolution Status Pain from implanted hardware acute [facility] Work Phone: Evaluation note* Diagnosis Onset Date Resolution Status Pain from implanted hardware acute Hypoxemia acute Influenza acute Pneumonia acute Respiratory failure acute [facility] Work Phone: Evaluation note* Diagnosis Onset Date Resolution Status Facial droop acute Hypoxemia resolved Influenza resolved Pneumonia resolved Respiratory failure resolved Paralytic ileus of small intestine and colon acute [facility] Work Phone: evaluation note* Diagnosis Onset Date Resolution Status Facial droop acute Hypoxemia resolved Influenza resolved Pneumonia resolved Respiratory failure resolved Abnormal CT of the abdomen a cute Paralytic ileus of small intestine and colon acute Urinary retention acute [facility] Work Phone: Evaluation note* Diagnosis Onset Date Resolution Status Facial droop acute Hypoxemia resolved Influenza resolved Pneumonia resolved Respiratory failure resolved Abnormal CT of the abdomen a cute Paralytic ileus of small intestine and colon resolved Urinary retention resolved Acute alteration in mental status acute Influenza B acute [facility] Work Phone: Evaluation note* Diagnosis Onset Date Resolution Status Paralytic ileus of small intestine and colon resolved Urinary retention resolved Abnormal TSH acute Toxic metabolic encephalopathy acute Debility resolved Generalized weakness resolve d Influenza B resolved [facility] Work Phone: Evaluation note* Diagnosis Onset Date Resolution Status Acute dehydration acute Acute hypotension acute Acute kidney injury acute Aspiration pneumonia acute Closed head injury acute Falls acute Fracture of humeral head acu te Hypoxia acute Pulmonary emboli acute [facility] Work Phone: History and physical note Author Zia Posey [facility] October 13, 2022 3:13pm Note Date/Time October 13, 2022 2:42 pm [facility] Medical Records Department [address] [place] [id number] H&P Exam - Hospitalist 10/13/22 1440 MR#: [id number] Acct: [id number] Name: WILFREDOUshaCAROL Loomis Rep #:[id number] : 1950 72 From: Zia Rivero PCP: Dr. Harish Luis MD Status:ADM I N [facility] General Date of Admission: 10/13/22 Date of Service: 10/13/22 Chief Complaint: Constipation for long time but acutely for last 2 days HPI Narrative CAROL VILLALOBOSUsha, is a 72 F was sent to [...] plan. Patient is further admitted. [facility] Medical History Allergic rhinitis Ambulates with [...] Sl. Cloudy, Urine pH 6.0, Ur Specific [place] 1.015, Urine Protein Negative, Urine Glucose (UA) [...] 78.3 H, Lymph % (Auto) 12.0 L, Clare % (Auto) 9.2, Eos % (Auto) 0.0, [...] no meaningful recovery Total time spent in [id number] encounter in discussion of advanced directive 17 [...] Sl. Cloudy, Urine pH 6.0, Ur Specific [place] 1.015, Urine Protein Negative, Urine Glucose (UA) 50 H, Urine Ketones Negative, Urine Occult Blood Negative, Urine Nitrite Negative, Urine Bilirubin Negative, Urine Urobilinogen Normal, Ur Leukocyte Esterase Negative, Urine RBC 0 SEEN, Urine WBC 0 SEEN, Ur Squamous Epith Cells 0-5 SEEN, Urine Bacteria 0 SEEN, Urine Mucus 0 SEEN 07/28/23 12:45: WBC 9.4, RBC 3.35 L, Hgb 10.3 L, Hct 32.5 L, MCV 97.0, MCH 30.7,MCHC 31.7 L, RDW Std Deviation 48.4 H, RDW Coeff of Mehnaz 13.5, Plt Count 288, MPV9.8, Immature Gran % (Auto) 0.300, Neut % (Auto) 78.3 H, Lymph % (Auto) 12.0 L, Clare % (Auto) 9.2, Eos % (Auto) 0.0, [...] 0.7 L Charges/Coding Visit Charges Inpatient E&M: 99481 Init Hosp L3 Procedures Hospitalists Procedures: 37432 Advncd Care Plan 30 Min 10/13/22 1513 <Electronically signed by Zia Posey MD> Cosigner Signature (if applicable): CC: Dr. Zia Posey MD; Dr. Harish Luis MD~ Signed [facility] Work Phone: History and physical note Author Anastasia Khan [facility] Note Date/Time September 27, 2024 3:09 pm [facility] Medical Records Department [address] [place] [address] H&P Exam - Hospitalist 09/27/24 1447 MR#: [id number] Acct: [id number] Name: CRAOL DAVID Rep #:[id number] : 1950 74 From: Anastasia Khan MD [...] additional 5-day course now presenting to the [facility] ED on 09/27/2024 withhistory of recurrent [...] patient ministered maintenance IV fluids. [facility] Medical History Anxiety and depression Fracture of [...] social history: Currently ambulating with a cane PARI YAÑEZ Narrative Admission Review of Systems: CONSTITUTIONAL: No [...] (Auto) 80.5 H, Lymph % (Auto) 11.4 L,Clare % (Auto) 5.9, Eos % (Auto) 1.1, [...] Sl. Cloudy, Urine pH 6.0, Ur Specific [place] 1.015, Urine Protein 30 H, Urine Glucose [...] IMPRESSION: No acute intracranial finding. Reading Location: [facility] Chest X-Ray 09/27/24 13:25 IMPRESSION: Stable bilateral lower lung zone consolidations, [id number], compatible with pneumonitis/pneumonia. Reading Location: [facility] Pelvis X-Ray 09/27/24 13:50 IMPRESSION: No acute pelvic deformity. Reading Location: [facility] Assessment & Plan Assessment/Plan (1) Falls frequently: [...] additional 5-day course now presenting to the [facility] ED on 09/27/2024 withhistory of recurrent [...] reduced dose of clonazepam with transition to [facility] facility once precertification obtained with ongoing slow taper of these two agents to avoid withdrawal, continued on buspirone at this time, PT/OT/case management consulted for [facility] planning with [facility]. 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 Charges/Coding Visit Charges Inpatient E&M: 53532 Init Hosp L3 09/27/24 1503 <Electronically signed by Anastasia Khan MD> Cosigner Signature (if applicable): CC: Dr. Anastasia Khan MD; Dr. Harish Luis MD~ Signed [facility] Work Phone: Hospital Discharge instructions Additional Instructions I prescribed tramadol and prednisone which is a steroid to treat your chronic pain. You can continue taking Aleve. Please follow-up with your primary care doctor next week. [facility] Work Phone: Hospital Discharge instructionsAdditional Instructions [...] medication for insomnia consideration. [facility]: [facility] Discharge instructionsAdditional Instructions Carol discharge AGAINST MEDICAL ADVICE.[facility] Work Phone: Hospital Discharge instructionsAdditional Instructions When you call Dr. Sow' office let them know that you were seen in the ER and need an ER follow-up visitWC[facility] Work Phone: Reason for referral (narrative)No reason for referral information availableWCincinnati [facility] Work Phone: Family History No [...] Will Yes February 16 3:26pm Power of Sales And Retail Management Recruiter Yes February 17, 2020 3:26pm Advance Directive Response Recorded Date/ Time Advance Directives Yes January 21, 2015 4:23pm Living Will Yes February 16 2:26pm Power of Sales And Retail Management Recruiter Yes February 17, 2020 2:26pm Advance Directive Response Recorded Date/ Time Name of Medical Power of Sales And Retail Management Recruiter IRVING LOVER April 20, 2022 11:20am Advance Directives Yes January 21, 2015 5:23pm Living Will Yes April 20 11:20am Power of Sales And Retail Management Recruiter Yes April 20, 2022 11:20am Advance Directive Response Recorded Date/ Time Name of Medical Power of Sales And Retail Management Recruiter IRVING LOVER April 20, 2022 11:20am Name of Medical Power of Sales And Retail Management Recruiter July 29, 2022 7:49am Advance Directives Yes January 21, 2015 5:23pm Living Will Yes July 29, 2022 7 :49am Power of Sales And Retail Management Recruiter Yes July 29, 2022 7:49am Advance Directive Response Recorded Date/ Time Name of Medical Power of Sales And Retail Management Recruiter July 29, 2022 10:09am Name of Medical Power of Sales And Retail Management Recruiter Jose Lover October 13, 2022 10:25am Advance Directives Yes January 21, 2015 5:23pm Living Will Yes October 13, 2022 10:25am Power of Sales And Retail Management Recruiter Yes October 13 10:25am Advance Directive Response Recorded Date/ Time Name of Medical Power of Sales And Retail Management Recruiter July 29, 2022 10:09am Name of Medical Power of Sales And Retail Management Recruiter Jose Lover October 13, 2022 3:38pm Advance Directives Yes January 21, 2015 5:23pm Living Will Yes October 13, 2022 3:38pm Power of Sales And Retail Management Recruiter Yes October 13 3:38pm Advance Directive Response Recorded Date/ Time Name of Medical Power of Sales And Retail Management Recruiter July 29, 2022 10:09am Name of Medical Power of Sales And Retail Management Recruiter Jose Lover October 13, 2022 3:38pm Name of Medical Power of Sales And Retail Management Recruiter November 01, 2022 7:48am Advance Directives Yes January 21, 2015 5:23pm Living Will Yes November 01 7:48am Power of Sales And Retail Management Recruiter Yes November 01, 023 7:48am Advance Directive Response Recorded Date/ Time Name of Medical Power of Sales And Retail Management Recruiter Jose Lover October 13, 2022 3:38pm Name of Medical Power of Sales And Retail Management Recruiter November 01, 2022 7:48am Advance Directives Yes January 21, 2015 5:23pm Living Will No November 01 11:39am Power of Sales And Retail Management Recruiter No November 01, 2 023 11:39am Advance Directive Response Recorded Date/ Time Advance Directives Yes January 21, 2015 4:23pm Living Will No March 17, 2 023 1:30pm Power of Sales And Retail Management Recruiter No March 17, 2023 1:30pm Advance Directive Response Recorded Date/ Time Advance Directives Yes January 21, 2015 5:23pm Living Will No March 17, 2 023 2:30pm Power of Sales And Retail Management Recruiter No March 17, 2023 2:30pm Advance Directive Response Recorded Date/ Time Advance Directives Yes January 21, 2015 5:23pm Living Will No July 24, 2023 8: 00pm Power of Sales And Retail Management Recruiter No July 24, 2023 8:00pm Advance Directive Response Recorded Date/ Time Advance Directives Yes January 21, 2015 5:23pm Living Will No July 30, 2023 1 :46pm Power of Sales And Retail Management Recruiter No July 30, 2023 1:46pm Advance Directive Response Recorded Date/ Time Living Will Yes June 04, 2024 3:44pm Do you have a Healthcare Pow er of Sales And Retail Management Recruiter? Yes June 04, 2024 3:44pm Name of Medical Power of Sales And Retail Management Recruiter Jose pantoja June 04, 2024 3:44pm Advance Directives Yes October 25 3:30pm Advance Directive Response Recorded Date/ Time Living Will Yes June 04, 2024 3:44pm Do you have a Healthcare Pow er of Sales And Retail Management Recruiter? Yes June 04, 2024 3:44pm Name of Medical Power of Sales And Retail Management Recruiter Jose pantoja June 04, 2024 3:44pm Do you have a Healthcare Pow er of Sales And Retail Management Recruiter? No August 27, 2024 3:36pm Advance Directives Yes October 25 3:30pm Advance Directive Response Recorded Date/ Time Living Will Yes June 04, 2024 3:44pm Do you have a Healthcare Pow er of Sales And Retail Management Recruiter? Yes June 04, 2024 3:44pm Name of Medical Power of Sales And Retail Management Recruiter Jose pantoja June 04, 2024 3:44pm Do you have a Healthcare Pow er of Sales And Retail Management Recruiter? Yes August 27, 2024 8:46pm Advance Directives Yes October 25 3:30pm Advance Directive Response Recorded Date/ Time Living Will Yes June 04, 2024 3:44pm Do you have a Healthcare Pow er of Sales And Retail Management Recruiter? Yes June 04, 2024 3:44pm Name of Medical Power of Sales And Retail Management Recruiter Jose pantoja June 04, 2024 3:44pm Do you have a Healthcare Pow er of Sales And Retail Management Recruiter? No September 21, 2024 6:07pm Do you have a Healthcare Pow er of Sales And Retail Management Recruiter? Yes August 27, 2024 8:46pm Advance Directives Yes October 25 3:30pm Advance Directive Response Recorded Date/ Time Living Will Yes June 04, 2024 3:44pm Do you have a Healthcare Pow er of Sales And Retail Management Recruiter? Yes June 04, 2024 3:44pm Name of Medical Power of Sales And Retail Management Recruiter Jose pantoja June 04, 2024 3:44pm Do you have a Healthcare Pow er of Sales And Retail Management Recruiter? No September 21, 2024 9:09pm Do you have a Healthcare Pow er of Sales And Retail Management Recruiter? Yes August 27, 2024 8:46pm Advance Directives Yes October 25 3:30pm Advance Directive Response Recorded Date/ Time Living Will Yes June 04, 2024 3:44pm Do you have a Healthcare Pow er of Sales And Retail Management Recruiter? Yes June 04, 2024 3:44pm Name of Medical Power of Sales And Retail Management Recruiter Jose pantoja June 04, 2024 3:44pm Do you have a Healthcare Pow er of Sales And Retail Management Recruiter? No September 21, 2024 9:09pm Do you have a Healthcare Pow er of Sales And Retail Management Recruiter? Yes August 27, 2024 8:46pm Do you have a Healthcare Pow er of Sales And Retail Management Recruiter? Yes September 27, 2024 12:33pm Advance Directives Yes October 25 3:30pm Advance Directive Response Recorded Date/ Time Living Will Yes June 04, 2024 3:44pm Do you have a Healthcare Pow er of Sales And Retail Management Recruiter? Yes June 04, 2024 3:44pm Name of Medical Power of Sales And Retail Management Recruiter Jose pantoja June 04, 2024 3:44pm Do you have a Healthcare Pow er of Sales And Retail Management Recruiter? No September 21, 2024 9:09pm Do you have a Healthcare Pow er of Sales And Retail Management Recruiter? Yes August 27, 2024 8:46pm Do you have a Healthcare Pow er of Sales And Retail Management Recruiter? No September 27, 2024 4:00pm Advance Directives Yes October 25 3:30pm Advance Directive Response Recorded Date/ Time Do you have a Healthcare Pow er of Sales And Retail Management Recruiter? No September 21, 2024 9:09pm Do you have a Healthcare Pow er of Sales And Retail Management Recruiter? Yes September 30, 2024 5:09pm Name of Medical Power of Sales And Retail Management Recruiter Irving David September 30, 2024 5:09pm Do you have a Healthcare Pow er of Sales And Retail Management Recruiter? Yes August 27, 2024 8:46pm Do you have a Healthcare Pow er of Sales And Retail Management Recruiter? No September 27, 2024 4:00pm Advance Directives Yes October 25 3:30pm Advance Directive Response Recorded Date/ Time Do you have a Healthcare Pow er of Sales And Retail Management Recruiter? No September 21, 2024 9:09pm Do you have a Healthcare Pow er of Sales And Retail Management Recruiter? Yes September 30, 2024 5:09pm Name of Medical Power of Sales And Retail Management Recruiter Irving David September 30, 2024 5:09pm Do you have a Healthcare Pow er of Sales And Retail Management Recruiter? No September 27, 2024 4:00pm Do you have a Healthcare Pow er of Sales And Retail Management Recruiter? Yes January 02, 2025 6:27pm Do you have a Healthcare Pow er of Sales And Retail Management Recruiter? Yes January 10, 2025 3:49pm Advance Directives Yes October 25, 2 3:30pm Chief Complaint and Reason for Visit [...] pm Debility September 29, 2024 3:45 pm Chief Complaint Admit Date FREQUENT FALLS, CONFUSION & RECENT ASPIR ATION [...] TO THRIVE AND FREQUENT FALLS Sep 5:49pm Migraine January 02, 2025 4 :11pm SI January 10, 2025 3 :36pm Reason for Visit Admit Date Frequent falls September 21, 2024 8:12p m [...] Status: Active Member Role Status Dates Dr. Hraish Luis MD Primary Care Provider Active Dr. [...] St art: September 29, 2024 Dr. Anastasia Khna MD Other Provider Active St art: September [...] Star t: October 02, 2024 Dr. Gurmeet Zaraet DO Attending Provider Active Start: October 02, 2024 Team Status: Active Member Role/Relationship Status Dates No Primary Care Physician Primary care physician Activ e Team Status: Inactive Member Role/Relationship Status Dates Dr. Harish Luis MD Primary care physician Active Start: September 21, 2024 End: September 22, 2024 Dr. Guilherme Collins MD Emergency Department Physician Ac tive Start: September 21, 2024 End: September 22, 2024 Dr. Ricardo Justice DO Admitting physician Active Start: September 21, 2024 End: September 22, 2024 Dr. Ricardo Justice DO Nurse Practitioner Active Start: September 21, 2024 End: September 22, 2024 Dr. Anastasia Khan MD Attending physician Active Start: September 21, 2024 End: September 22, 2024 Team Status: Active Member Role/Relationship Status Dates Dr. Harish Luis MD Primary care physician Active Start: September 22, 2024 Dr. Guilherme Collins MD Emergency Department Physician Ac tive Start: September 22, 2024 Dr. Ricardo Justice DO Admitting physician Active Start: September 22, 2024 Dr. Ricardo Justice DO Nurse Practitioner Active Start: September 22, 2024 Dr. Anastasia Khan MD Attending physician Active Start: September 22, 2024 Dr. Anastasia Khan MD Nurse Practitioner Active Start: September 22, 2024 Team Status: Active Member Role/Relationship Status Dates Dr. Harish Luis MD Primary care physician Active Start: September 27, 2024 Dr. Remus Ungur , DO Emergency Department Physician Ac tive Start: September 27, 2024 Dr. Anastasia Khan MD Attending physician Active Start: September 27, 2024 Team Status: Inactive Member Role/Relationship Status Dates Dr. Harish Luis MD Primary care physician Active Start: September 27, 2024 End: September 29, 2024 Dr. Dimitry Rosales , DO Emergency Department Physician Ac tive Start: September 27, 2024 End: September 29, 2024 Dr. Anastasia Khan MD Admitting physician Active Start: September 27, 2024 End: September 29, 2024 Dr. Anastasia Khan MD Nurse Practitioner Active Start: September 27, 2024 End: September 29, 2024 Dr. Ricardo Padilla MD Attending physician Active Start: September 27, 2024 End: September 29, 2024 Team Status: Active Member Role/Relationship Status Dates Dr. Harish Luis MD Primary care physician Active Start: September 28, 2024 Dr. Dimitry Rosales DO Emergency Department Physician Ac tive Start: September 28, 2024 Dr. Anastasia Khan MD Admitting physician Active Start: September 28, 2024 Dr. Anastasia Khan MD Attending physician Active Start: September 28, 2024 Dr. Anastasia Khan MD Nurse Practitioner Active Start: September 28, 2024 Team Status: Active Member Role/Relationship Status Dates Dr. Harish Luis MD Primary care physician Active Start: September 29, 2024 Dr. Dimitry Rosales DO Emergency Department Physician Ac tive Start: September 29, 2024 Dr. Anastasia Khan MD Admitting physician Active Start: September 29, 2024 Dr. Anastasia Khan MD Nurse Practitioner Active Start: September 29, 2024 Dr. Ricardo Padilla MD Attending physician Active Start: September 29, 2024 Dr. Ricardo Padilla MD Nurse Practitioner Active Start: September 29, 2024 Team Status: Inactive Member Role/Relationship Status Dates Dr. Harish Luis MD Primary care physician Active Start: September 29, 2024 End: October 03, 2024 Dr. Harish Luis MD Admitting physician Active Start: September 29, 2024 End: October 03, 2024 Dr. Harish Luis MD Attending physician Active Start: September 29, 2024 End: October 03, 2024 Dr. Harish Luis MD Referring Provider Active Start: September 29, 2024 End: October 03, 2024 Team Status: Active Member Role/Relationship Status Dates Dr. Harish Luis MD Primary care physician Active Start: October 01, 2024 Dr. Harish Luis MD Admitting physician Active Start: October 01, 2024 Dr. Harish Luis MD Referring Provider Active Start: October 01, 2024 Dr. Harish Luis MD Nurse Practitioner Active Start: October 01, 2024 CHILO Arroyo Attending physician Active Start: October 01, 2024 Team Status: Active Member Role/Relationship Status Dates Dr. Harish Luis MD Primary care physician Active Start: October 02, 2024 Dr. Harish Luis MD Admitting physician Active Start: October 02, 2024 Dr. Harish Luis MD Referring Provider Active Start: October 02, 2024 Dr. Harish Luis MD Nurse Practitioner Active Start: October 02, 2024 Dr. Gurmeet Zarate DO Attending physician Active Start: October 02, 2024 Team Status: Inactive Member Role/Relationship Status Dates Dr. Huber Ballard MD Attending physician Active St art: January 02, 2025 End: January 02, 2025 Dr. Huber Ballard MD Emergency Department Physician Active Start: January 02, 2025 End: January 02, 2025 No Primary Care Physician Primary care physician Activ e Start: January 02, 2025 End: January 02, 2025 Team Status: Inactive Member Role/Relationship Status Dates No Primary Care Physician Primary care physician Activ e Start: January 10, 2025 End: January 10, 2025 Dr. Xu Macias MD Emergency Depart ment Physician Active Start: January 10, 2025 End: January 10, 2025 INFORMATION SOURCE (unrecogn ized section and content) DATE CREATED AUTHOR 01/10/2025 [facility] DATE CREATED AUTHOR AUTHOR'S ORGANIZ ATION 01/24/2025 [facility] FOR RECORDS PERTAINING TO PATIENTS WHO ARE [...] BE BASED ON THE PRIMARY CLINICAL RECORDS. [facility]. provides no warranty or guarantee of the accuracy or completeness of information in this document.
== END | disposition home or self-care (01) ==
LOC: CIMLAB 15:49
PROVIDERS: Referring Provider Nurse Practitioner Family; Visit Provider Nurse Practitioner Family
DX: E04.9 Nontoxic goiter, unspecified (principal); K21.9 Gastro-esophageal reflux disease without esophagitis; R79.89 Other specified abnormal findings of blood chemistry
CPT/HCPCS: 36415; 80053; 80061; 84443; 85025